=== PATIENT | female | born 1975 | race Hispanic/Latino ===

== ENCOUNTER 2017-09-13 22:57 | Emergency (ER) | payer OTHER ==
--- OUTSIDE RECORDS SUMMARY | 2017-09-13 23:00 | XMS REPORT | Clinical Summary ---
:1975 Author Organization [facility] Address [address] [place] [address] Phone Care Team Providers Name Role Phone Unavailable Primary Care Provider Unavailable Allergies Active Allergy Reactions Severity Noted Date Comments Warfarin 06/07/2016 Current Medications Prescription Sig. Disp. Refills Start Date End Date Status bifidobacterium Take by mouth Active infantis (ALIGN) 4 mg daily. Cap hyoscyamine Take 0.125 mg Active (LEVSIN/SL) 0.125 mg by mouth 2 SL tablet (two) times daily. methocarbamol Take 750 mg by Active (ROBAXIN) 750 MG mouth 4 (four) tablet times daily as needed . esomeprazole (NEXIUM) Take 40 mg by Active 40 MG capsule mouth daily. venlafaxine (EFFEXOR) Take 75 mg by Active 75 MG tablet mouth 2 (two) times daily. atorvastatin Take 1 tablet 30 tablet 0 04/14/2017 Active (LIPITOR) 40 MG (40 mg total) 8 tablet by mouth nightly. pantoprazole Take 40 mg by Active (PROTONIX) 40 MG mouth daily. tablet magnesium oxide Take 400 mg by Active (MAG-OX) 400 mg mouth 2 (two) tablet times daily. amitriptyline Take 1 tablet 30 tablet 3 05/04/2017 Active (ELAVIL) 10 MG tablet (10 mg total) 8 by mouth nightly. metFORMIN Take 1 tablet 60 tablet 11 06/11/2016 (GLUCOPHAGE) 500 MG (500 mg total) 7 tablet by mouth 2 (two) times daily with breakfast and dinner. aspirin 81 MG EC Take 1 tablet 30 tablet 11 06/10/2016 tablet (81 mg total) 7 by mouth daily. pantoprazole Take 1 tablet 0 06/10/2016 Discontinued (PROTONIX) 40 MG (40 mg total) 7 tablet by mouth daily. acetaminophen Take 2 tablets 30 tablet 0 06/10/2016 (TYLENOL) 325 MG (650 mg total) 7 tablet by mouth every 6 (six) hours as needed for Pain for up to 360 days. aluminum & Take 30 mLs by 355 mL 0 04/14/2017 magnesium mouth every 6 7 hydroxide-simethicone (six) hours as (MAALOX PLUS) needed for up 400-400-40 mg/5 mL to 10 days. suspension amitriptyline Take 1 tablet 90 tablet 3 05/04/2017 Discontinued (ELAVIL) 10 MG tablet (10 mg total) 7 by mouth nightly. Active Problems Problem Noted Date Headache, acute 05/02/2017 CVA (cerebral vascular accident) ([facility]) 06/07/2016 Encounters Date Type Specialty Care Team Description 05/02/2017 - Hospital Encounter General Internal Smitha Martinez, Cerebrovascular 05/04/2017 Medicine accident (CVA), Talat Concepcion unspecified mechanism MD Shilpi ([facility]);Acute intractable headache, unspecified headache type;Intractable vomiting with nausea, unspecified vomiting type;Morbid obesity ([facility]) 04/07/2017 Orders Only General Internal Medicine 04/06/2017 - Hospital Encounter General Internal Andrea Roberson Acute ischemic stroke 04/15/2017 Medicine Dori, ([facility]);Tissue MD plasminogen activator Jaron (t-PA) administered at MD Chiqui other facility within 24 hours prior to current admission;Acute encephalopathy;Type 2 diabetes mellitus without complication, without long-term current use of insulin ([facility]) after 09/12/2016 Social History Tobacco Use Types Packs/Day Years Used Date Former Smoker 1 1 Quit: 07/08/1993 Smokeless Tobacco: Never Used Alcohol Use Drinks/Week oz/Week Comments No Sex Assigned at Date Recorded Not on file Last Filed Vital Signs Vital Sign Reading Time Taken Blood Pressure 112/56 05/04/2017 7:39 AM CLINICAL BIOCHEMICAL GENETICIST Pulse 64 05/04/2017 7:39 AM CLINICAL BIOCHEMICAL GENETICIST Temperature 36.4 C (97.5 F) 05/04/2017 7:39 AM CLINICAL BIOCHEMICAL GENETICIST Respiratory Rate 18 05/04/2017 7:39 AM CLINICAL BIOCHEMICAL GENETICIST Oxygen Saturation 95% 05/04/2017 7:39 AM CLINICAL BIOCHEMICAL GENETICIST Inhaled Oxygen Concentration - - Weight 157.5 kg (347 lb 4.8 oz) 05/02/2017 10:00 PM CLINICAL BIOCHEMICAL GENETICIST Height 160 cm (5' 3") 05/02/2017 10:00 PM CLINICAL BIOCHEMICAL GENETICIST Body Mass Index 61.52 05/02/2017 10:00 PM CLINICAL BIOCHEMICAL GENETICIST Plan of Treatment Not on file Results EKG-SCANNED (05/10/2017 7:52 AM)Only the most recent of2 resultswithin the time period is included.RHYTHM STRIP - SCAN (05/10/2017 7:52 AM)Only the most recent of2 resultswithin the time period is included.POC-Glucose meter (2016 7:47 AM)Only the most recent of20 resultswithin the time period is included. Component Value Ref Range POC-Glucose Meter 143 (H)Comment: TESTED AT [address] 70 - 110 mg/[place] [address] Specimen Performing Laboratory Blood [address] [address] Prothrombin time/INR (05/04/2017 4:51 AM)Only the most recent of2 resultswithin the time period is included. Component Value Ref Range Protime 13.4 11.7 - 14.7 seconds INR 1.0 <=5.9 Specimen Performing Laboratory Blood - Arm, [address] [address] Narrative RECOMMENDED COUMADIN/WARFARIN INR THERAPY RANGES STANDARD DOSE: 2.0 - 3.0 Includes: PROPHYLAXIS for venous thrombosis, systemic embolization; TREATMENT for venous thrombosis and/or pulmonary embolus. HIGH RISK: Target INR is 2.5-3.5 for patients with mechanical heart valves. Phosphorus (05/04/2017 4:51 AM)Only the most recent of2 resultswithin the time period is included. Component Value Ref Range Phosphorus 4.4 2.3 - 4.7 mg/dL Specimen Performing Laboratory Blood - Arm, [address] [address] Magnesium (05/04/2017 4:51 AM)Only the most recent of2 resultswithin the time period is included. Component Value Ref Range Magnesium 2.3 1.6 - 2.6 mg/dL Specimen Performing Laboratory Blood - Arm, [address] [address] Hepatic function panel (05/04/2017 4:51 AM)Only the most recent of3 resultswithin the time period is included. Component Value Ref Range Protein, Total 6.8 6.0 - 8.3 gm/dL Albumin 3.6 3.5 - 5.0 g/dL Total Bilirubin 0.4 0.2 - 1.2 mg/dL Bilirubin, Direct 0.2 0.1 - 0.5 mg/dL Alkaline Phosphatase 59 40 - 150 U/L AST 24 5 - 34 U/L ALT 17 6 - 55 U/L Specimen Performing Laboratory Blood - Arm, [address] [address] Basic metabolic panel (05/04/2017 4:51 AM)Only the most recent of8 resultswithin the time period is included. Component Value Ref Range Sodium 142 136 - 145 meq/L Potassium 3.9 3.5 - 5.1 meq/L Chloride 108 (H) 98 - 107 meq/L CO2 26 22 - 29 meq/L BUN 16 7 - 21 mg/dL Creatinine 0.69 0.57 - 1.25 mg/dL Glucose 86 70 - 105 mg/dL Calcium 8.6 8.4 - 10.2 mg/dL EGFR 94Comment: ESTIMATED GFR IS NOT ACCURATE mL/min/1.73 sq m CREATININE CLEARANCE IN PREDICTING GLOMERULAR FILTRATION RATE. ESTIMATED GFR IS NOT APPLICABLE FOR DIALYSIS PATIENTS. Specimen Performing Laboratory Blood - Arm, [address] [address] CBC with platelet count + automated diff (05/03/2017 5:17 AM)Only the most recent of6 resultswithin the time period is included. Component Value Ref Range WBC 8.9 3.5 - 10.5 K/L RBC 4.55 3.93 - 5.22 M/L Hemoglobin 13.0 11.2 - 15.7 GM/DL Hematocrit 42.0 34.1 - 44.9 % MCV 92.3 79.4 - 94.8 fL MCH 28.6 25.6 - 32.2 pg MCHC 31.0 (L) 32.2 - 35.5 GM/DL RDW 13.9 11.7 - 14.4 % Platelets 202 150 - 450 K/CU MM MPV 12.6 (H) 9.4 - 12.3 fL nRBC 0 0 - 0 /100 WBC % Neutros 70 % % Lymphs 23 % % Monos 4 % % Eos 3 % % Baso 0 % # Neutros 6.19 (H) 1.56 - 6.13 K/L # Lymphs 2.03 1.18 - 3.74 K/L # Monos 0.37 (H) 0.24 - 0.36 K/L # Eos 0.24 0.04 - 0.36 K/L # Baso 0.02 0.01 - 0.08 K/L Immature Granulocytes-Relative 0 0 - 1 % Specimen Performing Laboratory Blood - [place], [address] [address] Troponin I (05/03/2017 5:17 AM)Only the most recent of4 resultswithin the time period is included. Component Value Ref Range Troponin I <0.01 0.00 - 0.03 ng/mL Specimen Performing Laboratory Blood - Arm, [address] [address] Narrative Troponin I (TnI) levels must be interpreted in the context of the presenting symptoms and the clinical findings. Elevated TnI levels indicate myocardial damage, but are not specific for ischemic heart disease. Elevated TnI levels are seen in patients with other cardiac conditions (including myocarditis and congestive heart failure), and slight TnI elevations occur in patients with other conditions, including sepsis, renal failure, acidosis, acute neurological disease, and persistent tachyarrhythmia. CBC with platelet count + automated diff (05/03/2017 5:17 AM)Only the most recent of6 resultswithin the time period is included. Specimen Performing Laboratory Blood Narrative The following orders were created for panel order CBC with platelet count + automated diff. Procedure Abnormality Status --------- ------ CBC with platelet count ...[[id number]]AbnormalFinal result Please view results for these tests on the individual orders. Creatine Kinase (CK), Total and MB (05/03/2017 1:00 AM)Only the most recent of3 resultswithin the time period is included. Component Value Ref Range Total CK 55 29 - 200 U/L CK-MB 1.1 0.0 - 6.6 ng/mL MB Relative Index 2.0 % Specimen Performing Laboratory Blood [address] [address] Narrative CK-MB Reference Range: <6.7Normal 6.7-10.0Borderline >10.0 Abnormal CBC (Hemogram only) (04/12/2017 4:19 AM) Component Value Ref Range WBC 7.7 3.5 - 10.5 K/L RBC 4.17 3.93 - 5.22 M/L Hemoglobin 12.0 11.2 - 15.7 GM/DL Hematocrit 38.0 34.1 - 44.9 % MCV 91.1 79.4 - 94.8 fL MCH 28.8 25.6 - 32.2 pg MCHC 31.6 (L) 32.2 - 35.5 GM/DL RDW 14.0 11.7 - 14.4 % Platelets 219 150 - 450 K/CU MM MPV 11.6 9.4 - 12.3 fL nRBC 0 0 - 0 /100 WBC Specimen Performing Laboratory Blood [address] [address] Clostridium difficile Toxin PCR (04/11/2017 2:20 PM) Component Value Ref Range C.Diff Toxin, PCR Not Detected Not Detected Specimen Performing Laboratory Stool [address] [address] Narrative This qualitative real-time polymerase chain reaction assay detects the tcdB gene, encoded on the C.difficile pathogenicity locus (PaLoc).The product of tcdB , toxin B, is a cytotoxin essential for causing C.difficile-associated disease (CDAD) and is found in virtually all toxigenic C.difficile. This assay is performed for patients suspected of having either community- acquired or nosocomial CDAD.Accordingly, only symptomatic patients should be tested and formed stools will be rejected unless ileus is present (i.e., specified when ordering).Patients may be colonized with toxigenic C.difficile strains not causing active disease; therefore, clinical correlation is needed when deciding how to manage patients with a positive test result. The assay has not been validated as a test of cure as amplifiable nucleic acid may persist after effective treatment; therefore, follow-up testing of a positive result is not recommended. ECHOCARDIOGRAM REPORT - SCAN (04/11/2017 9:25 AM)2D Echo W/Doppler(CW/PW/Color ) (04/10/2017 11:14 AM) Component Value Ref Range Ejection Fraction Specimen Performing Laboratory 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 Clinical History stroke asthma DM GERD Sleep apnea Morbid Obesity Height: 63 inches Weight: 170.55 kg (376 lbs) BSA: 2.53 m^2 BMI: 66.6 kg/m^2 HR: 80 bpm BP: 113/76 mmHg Summary LV endocardium is partially visualized with IV contrast. The left ventricle is chamber size (by PSLAX dimension) is small (female - LVIDd < 3.8cm) . Moderate concentric LV hypertrophy. All of the LV segments contract normally . The following segment(s) are not well visualized: inferolateral. Estimated LVEF by qualitative assessment is normal (55-60%) . LV diastolic function is indeterminate. RV is not well visualized. RV chamber size appears normal . Estimated peak systolic PA pressure is 25-30 mmHg + RA pressure. No significant pericardial effusion is visualized. Signature Findings Technical Quality: Technically difficult exam. Left Ventricle The left ventricle is chamber size (by PSLAX dimension) is small (female - LVIDd < 3.8cm) . Moderate concentric LV hypertrophy. All of the LV segments contract normally . The following segment(s) are not well visualized: inferolateral. Estimated LVEF by qualitative assessment is normal (55-60%) . LV endocardium is partially visualized with IV contrast. LV diastolic function is indeterminate. Left AtriumLA size is normal . Right VentricleRV is not well visualized. RV chamber size appears normal . Right Atrium RA size is mildly dilated. Aortic Valve Normal AoV structure. AoV is partially visualized. Mitral Valve Normal MV structure. MV is partially visualized. Tricuspid ValveTV is not well visualized. Estimated peak systolic PA pressure is 25-30 mmHg + RA pressure. Pulmonic Valve PV is not well visualized; function appears normal by Doppler visualized. AortaAortic root size (SInus of Valsalva diameter) is indeterminate (not well seen) . PericardiumNo significant pericardial effusion is visualized. IVC/SVC/PA/PV/PleuralThe inferior vena cava is not well visualized. The estimated RA pressure by IVC dynamics 5-10mmHg . Chambers/Structures Left Atrium LA Dimension: 4.48 cm Left Ventricle LVIDd: 3.38 cmLVEDV 2D :46.91 ml LVIDs: 1.93 cmLVESV 2D :11.67 ml LV Septum Diastolic: 1.4 cm LV Septum Systolic: 2.31 cm LV PW Diastolic: 1.49 cmLV FS: 42.9 % LV PW Systolic: 2.13 cm LV ESV (Cubed): 7.19 cc LVOT Diameter: 2.09 cm LV ESV (Teich):11.62 ml LV SV (Teich):35.14 ml LV SI (Teich):13.89 ml/m^2 LVEF 2D Teich: 75.1 % Shunts QS:60 ml Doppler/Quantitative Measurements Aortic Valve Peak Velocity: 1.97 m/sMean Velocity: 1.34 m/s Peak Gradient: 15.57 mmHgMean Gradient: 8.35 mmHg AV Area (continuity): 1.64 cm^2 AV VTI: 36.53 cm AV DVI: 0.48 LVOT Peak Velocity: 0.99 m/s Peak Gradient: 3.91 mmHg Mean Velocity: 0.6 m/sMean Gradient: 1.75 mmHg LVOT Diameter: 2.09 cmLVOT VTI: 17.49 cm LVOT Area: 3.43 cm^2LVOT SV:59.97 ml LVOT CO: 4.8 l/minLVOT CI: 1.9 l/min/m^2 Procedure Note Interface, External Ris In - 04/11/2017 8:51 AM CDT Transthoracic Echocardiography Report (TTE) Demographics Patient Name CALDERÓN, Date of Study 04/10/2017 GIOVANNY Gender Female Visit Number [id number] Race Unknown Room Number 7518 Number Date of 1975 Referring Physician 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 Clinical History stroke asthma DM GERD Sleep apnea Morbid Obesity Height: 63 inches Weight: 170.55 kg (376 lbs) BSA: 2.53 m^2 BMI: 66.6 kg/m^2 HR: 80 bpm BP: 113/76 mmHg Summary LV endocardium is partially visualized with IV contrast. The left ventricle is chamber size (by PSLAX dimension) is small (female - LVIDd < 3.8cm) . Moderate concentric LV hypertrophy. All of the LV segments contract normally . The following segment(s) are not well visualized: inferolateral. Estimated LVEF by qualitative assessment is normal (55-60%) . LV diastolic function is indeterminate. RV is not well visualized. RV chamber size appears normal . Estimated peak systolic PA pressure is 25-30 mmHg + RA pressure. No significant pericardial effusion is visualized. Signature Findings Technical Quality: Technically difficult exam. Left Ventricle The left ventricle is chamber size (by PSLAX dimension) is small (female - LVIDd < 3.8cm) . Moderate concentric LV hypertrophy. All of the LV segments contract normally . The following segment(s) are not well visualized: inferolateral. Estimated LVEF by qualitative assessment is normal (55-60%) . LV endocardium is partially visualized with IV contrast. LV diastolic function is indeterminate. Left Atrium LA size is normal . Right Ventricle RV is not well visualized. RV chamber size appears normal . Right Atrium RA size is mildly dilated. Aortic Valve Normal AoV structure. AoV is partially visualized. Mitral Valve Normal MV structure. MV is partially visualized. Tricuspid Valve TV is not well visualized. Estimated peak systolic PA pressure is 25-30 mmHg + RA pressure. Pulmonic Valve PV is not well visualized; function appears normal by Doppler visualized. Aorta Aortic root size (SInus of Valsalva diameter) is indeterminate (not well seen) . Pericardium No significant pericardial effusion is visualized. IVC/SVC/PA/PV/Pleural The inferior vena cava is not well visualized. The estimated RA pressure by IVC dynamics 5-10mmHg . Chambers/Structures Left Atrium LA Dimension: 4.48 cm Left Ventricle LVIDd: 3.38 cm LVEDV 2D:46.91 ml LVIDs: 1.93 cm LVESV 2D:11.67 ml LV Septum Diastolic: 1.4 cm LV Septum Systolic: 2.31 cm LV PW Diastolic: 1.49 cm LV FS: 42.9 % LV PW Systolic: 2.13 cm LV ESV (Cubed):7.19 cc LVOT Diameter: 2.09 cm LV ESV (Teich):11.62 ml LV SV (Teich):35.14 ml LV SI (Teich):13.89 ml/m^2 LVEF 2D Teich: 75.1 % Shunts QS:60 ml Doppler/Quantitative Measurements Aortic Valve Peak Velocity: 1.97 m/s Mean Velocity: 1.34 m/s Peak Gradient: 15.57 mmHg Mean Gradient: 8.35 mmHg AV Area (continuity): 1.64 cm^2 AV VTI: 36.53 cm AV DVI: 0.48 LVOT Peak Velocity: 0.99 m/s Peak Gradient: 3.91 mmHg Mean Velocity: 0.6 m/s Mean Gradient: 1.75 mmHg LVOT Diameter: 2.09 cm LVOT VTI: 17.49 cm LVOT Area: 3.43 cm^2 LVOT SV:59.97 ml LVOT CO: 4.8 l/min LVOT CI: 1.9 l/min/m^2 Hemoglobin A1c (04/10/2017 5:59 AM) Component Value Ref Range Hemoglobin A1C 6.2 (H) 4.3 - 6.1 % Specimen Performing Laboratory [place] [address] CT brain without IV contrast (04/09/2017 6:45 AM)Only the most recent of2 resultswithin the time period is included. Specimen Performing Laboratory [facility] Narrative FINAL REPORT Clinical history : Decreased alertness Comparison study: CT scan of the brain 04/08/2017 Technique: Contiguous axial images were obtained of the brain without intravenous contrast. This exam was performed according to our departmental dose optimization program, which includes automated exposure control, adjustment of the mA and/or kV according to the patient's size and/or use of the iterative reconstruction technique. FINDINGS: No hydrocephalus, mass, midline shift, cisternal effacement, intraparenchymal hemorrhage, or extra axial fluid collection. No acute infarction is identified. The visualized paranasal sinuses and tympanomastoid cavities are well pneumatized. Normal orbital contents, skull base, and calvarium. Impression: No acute abnormalities. Signed: Skip Gardner MD Report Verified Date/Time:04/09/2017 06:55:25 Reading Location: [address] Ortho Consult Reading Room Procedure Note Interface, External Ris In - 04/09/2017 8:04 AM CDT FINAL REPORT Clinical history : Decreased alertness Comparison study: CT scan of the brain 04/08/2017 Technique: Contiguous axial images were obtained of the brain without intravenous contrast. This exam was performed according to our departmental dose optimization program, which includes automated exposure control, adjustment of the mA and/or kV according to the patient's size and/or use of the iterative reconstruction technique. FINDINGS: No hydrocephalus, mass, midline shift, cisternal effacement, intraparenchymal hemorrhage, or extra axial fluid collection. No acute infarction is identified. The visualized paranasal sinuses and tympanomastoid cavities are well pneumatized. Normal orbital contents, skull base, and calvarium. Impression: No acute abnormalities. Signed: Skip Gardner MD Report Verified Date/Time: 04/09/2017 06:55:25 Reading Location: [address] Ortho Consult Reading Room PHERAL VASCULAR REPORT - SCAN (04/07/2017 5:07 PM)Carotid doppler bilateral (04/07/2017 12:14 PM) Component Value Ref Range Ejection Fraction Specimen Performing Laboratory [facility] ECHO HEARTLAB MKCK[facility]ON CPACS Impressions Right Impression 1. The internal carotid artery is within normal limits. 2. The external carotid artery is within normal limits. 3. The common carotid artery is within normal limits. 4. The vertebral artery flow is antegrade and normal. 5. The subclavian artery is within normal limits where visualized. Left Impression 1. The internal carotid artery is within normal limits. 2. The external carotid artery is within normal limits. 3. The common carotid artery is within normal limits. 4. The vertebral artery flow is antegrade and normal. 5. The subclavian artery is within normal limits where visualized. Conclusions Summary Carotid duplex scanning and color flow imaging were performed bilaterally. The arteries were well visualized and no areas of stenosis were found bilaterally. Doppler flow velocities were within normal range bilaterally. The vertebral artery flow was antegrade and normal bilaterally. The subclavian arteries were patent with normal flow bilaterally where visualized. Signature Velocities are measured in cm/s ; Diameters are measured in cm Carotid Right Measurements + +----+----+-----+ + + + !Location !PSV !EDV !Angle!%Stenosis 2D!%Stenosis Doppler! Tortuosity ! + +----+----+-----+ + + + !Prox CCA !101 !26.4!60 !! ! ! + +----+----+-----+ + + + !Dist CCA !104 !36.4!60 !! ! ! + +----+----+-----+ + + + !Prox ICA !110 !37.7!60 !!Normal ! ! + +----+----+-----+ + + + !Dist ICA !99.8!46.4!60 !! ! ! + +----+----+-----+ + + + !Prox ECA !151 !16.5!60 !! ! ! + +----+----+-----+ + + + !Vertebral!58!24!60 !! ! ! + +----+----+-----+ + + + !Prox Subclavian!168 !19.6!60 !! ! ! + +----+----+-----+ + + + - There is antegrade vertebral flow noted on the right side. - Additional Measurements:ICAPSV/CCAPSV 1.06.ICAEDV/CCAEDV 1.76. Carotid Left Measurements + +----+----+-----+ + + + !Location !PSV !EDV !Angle!%Stenosis 2D!%Stenosis Doppler! Tortuosity ! + +----+----+-----+ + + + !Prox CCA !144 !29.5!60 !! ! ! + +----+----+-----+ + + + !Dist CCA !127 !29.9!60 !! ! ! + +----+----+-----+ + + + !Prox ICA !118 !35.8!60 !!Normal ! ! + +----+----+-----+ + + + !Dist ICA !109 !48.7!60 !! ! ! + +----+----+-----+ + + + !Prox ECA !139 !12.6!60 !! ! ! + +----+----+-----+ + + + !Vertebral!67.4!23.5!60 !! ! ! + +----+----+-----+ + + + !Prox Subclavian!170 !18.7!60 !! ! ! + +----+----+-----+ + + + - There is antegrade vertebral flow noted on the left side. - Additional Measurements:ICAPSV/CCAPSV 0.93.ICAEDV/CCAEDV 1.65. Narrative [facility] - Carotid Duplex Study Demographics Patient Name Ty CALDERÓN of Study 04/07/2017 [id number] Age 41 Visit Number [id number] Gender Female Accession Number [id number] Date of 1975 [facility] Room Number 7518 Physician TimographAura Jeff MD, RVSPsician RPVI Procedure Type of Study: Cerebral: Carotid, CAROTID DOPPLER, BILATERAL. Indications for Study:Stroke workup . Patient Status:Routine. Study Location:Portable. Technical Quality:Adequate visualization. Risk Factors History of Disease + + + + !Diagnosis !Date!Comments ! + + + + !History/Risk!04/07/2017!Former smoker, CVA with left sided weakness & amp; ! !Factors:!!right facial droop, DM, Morbid obesity! 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 Indications for Study:Stroke workup . Patient Status:Routine. Study Location:Portable. Technical Quality:Adequate visualization. Risk Factors History of Disease + + + + !Diagnosis !Date !Comments ! + + + + !History/Risk !04/07/2017!Former smoker, CVA with left sided weakness & ! !Factors: ! !right facial droop, DM, Morbid obesity ! + + + + Impressions Right Impression 1. The internal carotid artery is within normal limits. 2. The external carotid artery is within normal limits. 3. The common carotid artery is within normal limits. 4. The vertebral artery flow is antegrade and normal. 5. The subclavian artery is within normal limits where visualized. Left Impression 1. The internal carotid artery is within normal limits. 2. The external carotid artery is within normal limits. 3. The common carotid artery is within normal limits. 4. The vertebral artery flow is antegrade and normal. 5. The subclavian artery is within normal limits where visualized. Conclusions Summary Carotid duplex scanning and color flow imaging were performed bilaterally. The arteries were well visualized and no areas of stenosis were found bilaterally. Doppler flow velocities were within normal range bilaterally. The vertebral artery flow was antegrade and normal bilaterally. The subclavian arteries were patent with normal flow bilaterally where visualized. Signature Velocities are measured in cm/s ; Diameters are measured in cm Carotid Right Measurements + +----+----+-----+ + + + !Location !PSV !EDV !Angle!%Stenosis 2D!%Stenosis Doppler!Tortuosity ! + +----+----+-----+ + + + !Prox CCA !101 !26.4!60 ! ! ! ! + +----+----+-----+ + + + !Dist CCA !104 !36.4!60 ! ! ! ! + +----+----+-----+ + + + !Prox ICA !110 !37.7!60 ! !Normal ! ! + +----+----+-----+ + + + !Dist ICA !99.8!46.4!60 ! ! ! ! + +----+----+-----+ + + + !Prox ECA !151 !16.5!60 ! ! ! ! + +----+----+-----+ + + + !Vertebral !58 !24 !60 ! ! ! ! + +----+----+-----+ + + + !Prox Subclavian!168 !19.6!60 ! ! ! ! + +----+----+-----+ + + + - There is antegrade vertebral flow noted on the right side. - Additional Measurements:ICAPSV/CCAPSV 1.06.ICAEDV/CCAEDV 1.76. Carotid Left Measurements + +----+----+-----+ + + + !Location !PSV !EDV !Angle!%Stenosis 2D!%Stenosis Doppler!Tortuosity ! + +----+----+-----+ + + + !Prox CCA !144 !29.5!60 ! ! ! ! + +----+----+-----+ + + + !Dist CCA !127 !29.9!60 ! ! ! ! + +----+----+-----+ + + + !Prox ICA !118 !35.8!60 ! !Normal ! ! + +----+----+-----+ + + + !Dist ICA !109 !48.7!60 ! ! ! ! + +----+----+-----+ + + + !Prox ECA !139 !12.6!60 ! ! ! ! + +----+----+-----+ + + + !Vertebral !67.4!23.5!60 ! ! ! ! + +----+----+-----+ + + + !Prox Subclavian!170 !18.7!60 ! ! ! ! + +----+----+-----+ + + + - There is antegrade vertebral flow noted on the left side. - Additional Measurements:ICAPSV/CCAPSV 0.93.ICAEDV/CCAEDV 1.65. EEG AWAKE AND DROWSY (04/07/2017 10:18 AM) Specimen Performing Laboratory [facility] Narrative DATE OF EE04-07-2017 DATE OF REPORT: 04-07-2017 ACC: [id number] EE-180 Start time: 09:54 Stop time: 10:18 ICD-10:G 93.40 CPT Code: 13915 HISTORY: 41 y.o. female with history of morbid obesity, DM2 who presented today to OSH with R sided facial droop and LUE weakness . Patient was evaluated at OSH where patient was started with tPA after normal CT. Now with acute encephalopathy MEDICATIONS THAT COULD AFFECT EEG: TECHNICAL SUMMARY: This is a digital EEG recorded with 32 input channels on a Paybook system and then reviewed with bipolar and referential montages using the modified combinatorial system nomenclature. DESCRIPTION OF RECORD: During the brief maximally alert state a 9-10 Hz posterior dominant rhythm was seen that was symmetric, reactive to eye opening but not sustained .More anteriorly, low voltage frontocentral beta predominated.Drowsiness was characterized by alpha attenuation and increased frontocentral theta. No sleep structures seen. HV: Hyperventilation was not performed. PHOTIC STIMULATION: Photic Stimulation was not done IMPRESSION: Normal awake and drowsy EEG. CLINICAL CORRELATION: Because the patient is mostly drowsy or sleep (and only briefly awake), this recording condition has low sensitivity for differentiating mild encephalopathy from normal maynor-sleep somnolence. An EEG without epileptiform discharges does not exclude the possibility of epilepsy.If the clinical suspicion of epilepsy remains, consider additional EEG recordings. Javi Mae MD Neurophysiology Fellow PGY5 Attending Note: I personally reviewed this EEG record in its entirety and I agree with the details of this report. Kitty Montejo MD, PhD Epilepsy Attending Procedure Note Interface, External Ris In - 04/07/2017 11:38 AM CDT DATE OF EE04-07-2017 DATE OF REPORT: 04-07-2017 ACC: [id number] EE Start time: 09:54 Stop time: 10:18 ICD-10: G 93.40 CPT Code: 73982 HISTORY: 41 y.o. female with history of morbid obesity, DM2 who presented today to OSH with R sided facial droop and LUE weakness . Patient was evaluated at OSH where patient was started with tPA after normal CT. Now with acute encephalopathy MEDICATIONS THAT COULD AFFECT EEG: TECHNICAL SUMMARY: This is a digital EEG recorded with 32 input channels on a Paybook system and then reviewed with bipolar and referential montages using the modified combinatorial system nomenclature. DESCRIPTION OF RECORD: During the brief maximally alert state a 9-10 Hz posterior dominant rhythm was seen that was symmetric, reactive to eye opening but not sustained . More anteriorly, low voltage frontocentral beta predominated. Drowsiness was characterized by alpha attenuation and increased frontocentral theta. No sleep structures seen. HV: Hyperventilation was not performed. PHOTIC STIMULATION: Photic Stimulation was not done IMPRESSION: Normal awake and drowsy EEG. CLINICAL CORRELATION: Because the patient is mostly drowsy or sleep (and only briefly awake), this recording condition has low sensitivity for differentiating mild encephalopathy from normal maynor-sleep somnolence. An EEG without epileptiform discharges does not exclude the possibility of epilepsy. If the clinical suspicion of epilepsy remains, consider additional EEG recordings. Javi Mae MD Neurophysiology Fellow PGY5 Attending Note: I personally reviewed this EEG record in its entirety and I agree with the details of this report. Kitty Montejo MD, PhD Epilepsy Attending Ammonia (04/07/2017 8:45 AM) Component Value Ref Range Ammonia 34 18 - 72 mol/L Specimen Performing Laboratory [facility] [address] [address] ECG 12 lead (04/07/2017 7:29 AM) Specimen Performing Laboratory [facility] Narrative Ventricular Rate 81 BPM Atrial Rate 81 BPM P-R Interval 120 ms QRS Duration 90 ms Q-T Interval 392 ms QTC Calculation(Bazett) 455 ms P [place] 19 degrees R [place] 42 degrees T [place] 32 degrees Normal sinus rhythm Normal ECG When compared with ECG of 09-JUN-2016 14:09, No significant change was found Confirmed by MD OLIVERA JORGE ([id number]) on 04/07/2017 2:44:04 PM Procedure Note Interface, External Ris In - 04/07/2017 2:44 PM CDT Ventricular Rate 81 BPM Atrial Rate 81 BPM P-R Interval 120 ms QRS Duration 90 ms Q-T Interval 392 ms QTC Calculation(Bazett) 455 ms P [place] 19 degrees R [place] 42 degrees T [place] 32 degrees Normal sinus rhythm Normal ECG When compared with ECG of 09-JUN-2016 14:09, No significant change was found Confirmed by MD OLIVERA JORGE ([id number]) on 04/07/2017 2:44:04 PM Vitamin B12 and Folate (04/07/2017 2:37 AM) Component Value Ref Range Vitamin B12 417 213 - 816 pg/mL Folate 13.6 >=7.0 ng/mL Specimen Performing Laboratory Blood [address] [address] TSH/Free T4 If Indicated (04/07/2017 2:37 AM) Component Value Ref Range TSH 1.12 0.35 - 4.94 uIU/mL Specimen Performing Laboratory Blood [address] [address] Fasting lipid panel (04/07/2017 2:37 AM) Component Value Ref Range Triglycerides 99Comment: Specimen moderately hemolyzed mg/dL Cholesterol 139Comment: Specimen moderately hemolyzed mg/dL HDL 43 mg/dL LDL Calculated 76 mg/dL Specimen Performing Laboratory Blood [facility] [address] [address] Narrative Triglyceride Reference Range: Low Risk <150 [id number] High Risk 200-499 Very High Risk>=500 Cholesterol Reference Range: Low Risk <200 [id number] High Risk>240 HDL Cholesterol Reference Range: Low Risk >=60 High Risk <40 LDL Cholesterol Reference Range: Optimal<100 Near [id number] [id number] Apnd241-485 Very High >=190 Fasting CTA brain (04/07/2017 12:32 AM) Specimen Performing Laboratory [facility] Narrative Addendum Begins REPORT STATUS:A Three-dimensional post intravenous contrast images of the cerebral vasculature were created on a free standing workstation for better visualization of cerebral vascular anatomy and pathology. Signed: Skip Gardner MD Report Verified Date/Time:04/12/2017 06:59:20 Reading Location: [facility] C0X Ortho Consult Reading Room Addendum Ends FINAL REPORT Noncontrast CT scan of the brain: Clinical history : Left-sided weakness status post TPA at an outside hospital. Comparison study: MRI of the brain 06/08/2016 Technique: Contiguous axial images were obtained of the brain without intravenous contrast. This exam was performed according to our departmental dose optimization program, which includes automated exposure control, adjustment of the mA and/or kV according to the patient's size and/or use of the iterative reconstruction technique. FINDINGS: Nonspecific periventricular and subcortical white matter changes suggestive of chronic microangiopathy. No hydrocephalus, mass, midline shift, cisternal effacement, intraparenchymal hemorrhage, or extra axial fluid collection. No acute infarction is identified. The visualizedparanasal sinuses and tympanomastoid cavities are well pneumatized. Normal orbital contents, skull base, and calvarium. Impression: 1. No acute abnormalities. 2. Results called to Dr. Hooks on 04/07/2017 at 12:[address] angiogram of the brain: CLINICAL HISTORY: Left-sided weakness status post TPA at an outside hospital. Comparison exam: None TECHNIQUE: CT scan of the brain arteries following the intravenous administration of contrast according to the CTA protocol. CT angiogram of the neck arteries could not be obtained secondary to the patient's body habitus. Dose modulation, iterative reconstruction, and/or weight based adjustment of the mA/kV was utilized to reduce the radiation dose to as low as reasonably achievable. FINDINGS: Limited diagnostic quality CT angiogram of the brain secondary to suboptimal IV. The visualized neck and intracranial internal carotid arteries, middle cerebral arteries, and anterior cerebral arteries demonstrate no stenosis, occlusion, aneurysm, or arterial venous malformation. Bilaterally symmetric intradural vertebral arteries. Normal basilar artery. Normal right posterior cerebral artery which arises off of theright internal carotid artery. The left posterior cerebral artery is somewhat diminutive and arises from the basilar artery. Patent major cerebral veins and dural venous sinuses. Patent jugular veins bilaterally. IMPRESSION: 1. Suboptimal CT angiogram of the brain secondary to a poor IV. No acute abnormalities are detected. CT angiogram of the neck arteries could not be obtained secondary to the patient's body habitus. 2. Results called to Dr. Hooks on 04/07/2017 at 12:50 AM. Signed: Skip Gardner MD Report Verified Date/Time:04/07/2017 01:12:44 Reading Location: [address] Ortho Consult Reading Room Procedure Note Interface, External Ris In - 04/12/2017 7:01 AM CDT Addendum Begins REPORT STATUS:A Three-dimensional post intravenous contrast images of the cerebral vasculature were created on a free standing workstation for better visualization of cerebral vascular anatomy and pathology. Signed: Skip Gardner MD Report Verified Date/Time: 04/12/2017 06:59:20 Reading Location: [address] Ortho Consult Reading Room Addendum Ends FINAL REPORT Noncontrast CT scan of the brain: Clinical history : Left-sided weakness status post TPA at an outside hospital. Comparison study: MRI of the brain 06/08/2016 Technique: Contiguous axial images were obtained of the brain without intravenous contrast. This exam was performed according to our departmental dose optimization program, which includes automated exposure control, adjustment of the mA and/or kV according to the patient's size and/or use of the iterative reconstruction technique. FINDINGS: Nonspecific periventricular and subcortical white matter changes suggestive of chronic microangiopathy. No hydrocephalus, mass, midline shift, cisternal effacement, intraparenchymal hemorrhage, or extra axial fluid collection. No acute infarction is identified. The visualized paranasal sinuses and tympanomastoid cavities are well pneumatized. Normal orbital contents, skull base, and calvarium. Impression: 1. No acute abnormalities. 2. Results called to Dr. Hooks on 04/07/2017 at 12:[address] angiogram of the brain: CLINICAL HISTORY: Left-sided weakness status post TPA at an outside hospital. Comparison exam: None TECHNIQUE: CT scan of the brain arteries following the intravenous administration of contrast according to the CTA protocol. CT angiogram of the neck arteries could not be obtained secondary to the patient's body habitus. Dose modulation, iterative reconstruction, and/or weight based adjustment of the mA/kV was utilized to reduce the radiation dose to as low as reasonably achievable. FINDINGS: Limited diagnostic quality CT angiogram of the brain secondary to suboptimal IV. The visualized neck and intracranial internal carotid arteries, middle cerebral arteries, and anterior cerebral arteries demonstrate no stenosis, occlusion, aneurysm, or arterial venous malformation. Bilaterally symmetric intradural vertebral arteries. Normal basilar artery. Normal right posterior cerebral artery which arises off of the right internal carotid artery. The left posterior cerebral artery is somewhat diminutive and arises from the basilar artery. Patent major cerebral veins and dural venous sinuses. Patent jugular veins bilaterally. IMPRESSION: 1. Suboptimal CT angiogram of the brain secondary to a poor IV. No acute abnormalities are detected. CT angiogram of the neck arteries could not be obtained secondary to the patient's body habitus. 2. Results called to Dr. Hooks on 04/07/2017 at 12:50 AM. Signed: Skip Gardner MD Report Verified Date/Time: 04/07/2017 01:12:44 Reading Location: [facility] B1 C013X [facility] Consult Reading Room after 09/12/2016
--- OUTSIDE RECORDS SUMMARY | 2017-09-13 23:01 | XMS REPORT ---
:1975 [facility] Address [address] [place] [address] Care Team Providers Name Role Phone MICKEY RESTREPO Unavailable Unavailable YIMI CHEUNG Unavailable Unavailable Problems This patient has no known problems. Allergies, Adverse Reactions, Alerts This patient has no known allergies or adverse reactions. Medications This patient has no known medications. Results Test Description Test Time Test Comments Text Results Atomic Results Result Comments POCT-GLUCOSE METER 2017-05-04 11:34:00 Test Item Value Reference Range Comments POC-GLUCOSE METER (BEAKER) (test 84 mg/dL 70-110 TESTED AT [facility] [address] [facility] gqmj=9310) [facility] [address] [id number] 08:58:00 Test Item Value Reference Range Comments PHOSPHORUS (BEAKER) (test eqmk=444) 4.4 mg/dL 2.3-4.7 [id number] 08:58:00 Test Item Value Reference Range Comments MAGNESIUM (BEAKER) (test fndm=622) 2.3 mg/dL 1.6-2.6 BASIC METABOLIC [id number] 08:58:00 Test Item Value Reference Range Comments SODIUM (BEAKER) (test 142 meq/L 136-145 klqx=379) POTASSIUM (BEAKER) (test 3.9 meq/L 3.5-5.1 kfib=591) CHLORIDE (BEAKER) (test 108 meq/L 98-107 gvid=173) CO2 (BEAKER) (test 26 meq/L 22-29 uvhw=142) BLOOD UREA NITROGEN 16 mg/dL 7-21 (BEAKER) (test qgbx=473) CREATININE (BEAKER) (test 0.69 mg/dL 0.57-1.25 ocfp=936) GLUCOSE RANDOM (BEAKER) 86 mg/dL 70-105 (test cgdv=201) CALCIUM (BEAKER) (test 8.6 mg/dL 8.4-10.2 szss=094) EGFR (BEAKER) (test 94 mL/min/1.73 sq m ESTIMATED GFR IS NOT vvto=3822) ACCURATE CREATININE CLEARANCE IN PREDICTING GLOMERULAR FILTRATION RATE. ESTIMATED GFR IS NOT APPLICABLE FOR DIALYSIS PATIENTS. HEPATIC FUNCTION [id number] 08:58:00 Test Item Value Reference Range Comments TOTAL PROTEIN (BEAKER) (test pyxs=172) 6.8 gm/dL 6.0-8.3 ALBUMIN (BEAKER) (test oexu=8967) 3.6 g/dL 3.5-5.0 BILIRUBIN TOTAL (BEAKER) (test khqe=985) 0.4 mg/dL 0.2-1.2 BILIRUBIN DIRECT (BEAKER) (test onzc=796) 0.2 mg/dL 0.1-0.5 ALKALINE PHOSPHATASE (BEAKER) (test jwbb=799) 59 U/L 40-150 AST (SGOT) (BEAKER) (test wvzi=451) 24 U/L 5-34 ALT (SGPT) (BEAKER) (test jwrk=455) 17 U/L 6-55 POCT-GLUCOSE [id number] 08:20:00 Test Item Value Reference Range Comments POC-GLUCOSE METER (BEAKER) 143 mg/dL 70-110 TESTED AT [address] (test ojtc=8599) [facility] [address] PROTHROMBIN [id number] 05:55:00 Test Item Value Reference Range Comments PROTIME (BEAKER) (test byoi=019) 13.4 seconds 11.7-14.7 INR (BEAKER) (test myqy=459) 1.0 <=5.9 RECOMMENDED COUMADIN/WARFARIN INR THERAPY RANGESSTANDARD DOSE: 2.0 - 3.0 Includes: PROPHYLAXIS forvenous thrombosis, systemic embolization; TREATMENT for venous thrombosis and/or pulmonary embolus.HIGH RISK: Target INR is 2.5-3.5 for patients with mechanical heart valves.POCT-GLUCOSE [id number] 20:32:00 Test Item Value Reference Range Comments POC-GLUCOSE METER (BEAKER) 90 mg/dL 70-110 TESTED AT [facility] [address] (test rvhw=7723) [facility] [address] POCT-GLUCOSE [id number] 16:47:00 Test Item Value Reference Range Comments POC-GLUCOSE METER (BEAKER) 79 mg/dL 70-110 TESTED AT [address] (test kpdf=5958) [place] [id number] POCT-GLUCOSE [id number] 07:47:00 Test Item Value Reference Range Comments POC-GLUCOSE METER (BEAKER) 97 mg/dL 70-110 TESTED AT [address] (test rocd=7297) [facility] [address] TROPONIN [id number] 07:02:00 Test Item Value Reference Range Comments TROPONIN I (BEAKER) (test zzil=397) < ng/mL 0.00-0.03 Troponin I (TnI) levels must be interpreted [...] failure, acidosis, acute neurological disease, and persistent tachyarrhythmia.[id number] 07:00:00 Test Item Value Reference Range Comments PHOSPHORUS (BEAKER) (test jzfw=024) 5.0 mg/dL 2.3-4.7 [id number] 07:00:00 Test Item Value Reference Range Comments MAGNESIUM (BEAKER) (test qamn=509) 1.9 mg/dL 1.6-2.6 BASIC METABOLIC [id number] 07:00:00 Test Item Value Reference Range Comments SODIUM (BEAKER) (test 141 meq/L 136-145 hpjj=802) POTASSIUM (BEAKER) (test 4.0 meq/L 3.5-5.1 hwci=190) CHLORIDE (BEAKER) (test 106 meq/L 98-107 tfcw=123) CO2 (BEAKER) (test 25 meq/L 22-29 hltk=314) BLOOD UREA NITROGEN 14 mg/dL 7-21 (BEAKER) (test lfzc=134) CREATININE (BEAKER) (test 0.72 mg/dL 0.57-1.25 btyn=668) GLUCOSE RANDOM (BEAKER) 109 mg/dL 70-105 (test gzdd=068) CALCIUM (BEAKER) (test 9.5 mg/dL 8.4-10.2 lgsv=135) EGFR (BEAKER) (test 89 mL/min/1.73 sq m ESTIMATED GFR IS NOT btnl=9737) ACCURATE CREATININE CLEARANCE IN PREDICTING GLOMERULAR FILTRATION RATE. ESTIMATED GFR IS NOT APPLICABLE FOR DIALYSIS PATIENTS. HEPATIC FUNCTION [id number] 07:00:00 Test Item Value Reference Range Comments TOTAL PROTEIN (BEAKER) (test midv=365) 7.7 gm/dL 6.0-8.3 ALBUMIN (BEAKER) (test uoiw=7578) 4.0 g/dL 3.5-5.0 BILIRUBIN TOTAL (BEAKER) (test ogly=876) 0.5 mg/dL 0.2-1.2 BILIRUBIN DIRECT (BEAKER) (test aszo=914) 0.2 mg/dL 0.1-0.5 ALKALINE PHOSPHATASE (BEAKER) (test vbjd=293) 69 U/L 40-150 AST (SGOT) (BEAKER) (test wmlz=657) 34 U/L 5-34 ALT (SGPT) (BEAKER) (test gtfk=670) 21 U/L 6-55 PROTHROMBIN [id number] 06:31:00 Test Item Value Reference Range Comments PROTIME (BEAKER) (test ekbi=940) 14.0 seconds 11.7-14.7 INR (BEAKER) (test icpj=399) 1.1 <=5.9 RECOMMENDED COUMADIN/WARFARIN INR THERAPY RANGESSTANDARD DOSE: 2.0 - 3.0 Includes: PROPHYLAXIS forvenous thrombosis, systemic embolization; TREATMENT for venous thrombosis and/or pulmonary embolus.HIGH RISK: Target INR is 2.5-3.5 for patients with mechanical heart valves.CBC W/PLT COUNT & AUTO [id number] 06:28:00 Test Item Value Reference Range Comments WHITE BLOOD CELL COUNT (BEAKER) (test qixu=815) 8.9 K/ L 3.5-10.5 RED BLOOD CELL COUNT (BEAKER) (test dxcu=489) 4.55 M/ L 3.93-5.22 HEMOGLOBIN (BEAKER) (test razu=434) 13.0 GM/DL 11.2-15.7 HEMATOCRIT (BEAKER) (test gxvk=499) 42.0 % 34.1-44.9 MEAN CORPUSCULAR VOLUME (BEAKER) (test fyuk=925) 92.3 fL 79.4-94.8 MEAN CORPUSCULAR HEMOGLOBIN (BEAKER) (test 28.6 pg 25.6-32.2 iuel=871) MEAN CORPUSCULAR HEMOGLOBIN CONC (BEAKER) (test 31.0 GM/DL 32.2-35.5 bwfv=831) RED CELL DISTRIBUTION WIDTH (BEAKER) (test 13.9 % 11.7-14.4 ucxs=857) PLATELET COUNT (BEAKER) (test lntc=329) 202 K/CU MM 150-450 MEAN PLATELET VOLUME (BEAKER) (test oahw=776) 12.6 fL 9.4-12.3 NUCLEATED RED BLOOD CELLS (BEAKER) (test 0 /100 WBC 0-0 vpye=203) NEUTROPHILS RELATIVE PERCENT (BEAKER) (test 70 % bqth=376) LYMPHOCYTES RELATIVE PERCENT (BEAKER) (test 23 % ktjn=364) MONOCYTES RELATIVE PERCENT (BEAKER) (test 4 % olla=309) EOSINOPHILS RELATIVE PERCENT (BEAKER) (test 3 % szpc=607) BASOPHILS RELATIVE PERCENT (BEAKER) (test 0 % iaep=637) NEUTROPHILS ABSOLUTE COUNT (BEAKER) (test 6.19 K/ L 1.56-6.13 owqq=251) LYMPHOCYTES ABSOLUTE COUNT (BEAKER) (test 2.03 K/ L 1.18-3.74 bhop=638) MONOCYTES ABSOLUTE COUNT (BEAKER) (test 0.37 K/ L 0.24-0.36 nbvt=656) EOSINOPHILS ABSOLUTE COUNT (BEAKER) (test 0.24 K/ L 0.04-0.36 sfjr=819) BASOPHILS ABSOLUTE COUNT (BEAKER) (test 0.02 K/ L 0.01-0.08 vuts=530) IMMATURE GRANULOCYTES-RELATIVE PERCENT (BEAKER) 0 % 0-1 (test rwue=4904) CREATINE KINASE (CK), TOTAL AND [id number] 01:39:00 Test Item Value Reference Range Comments CREATINE KINASE TOTAL (BEAKER) (test ntvc=848) 55 U/L 29-200 CREATINE KINASE-MB (BEAKER) (test znhg=501) 1.1 ng/mL 0.0-6.6 CREATINE KINASE-MB INDEX (BEAKER) (test kcky=409) 2.0 % CK-MB Reference Range:<6.7 Normal6.7-10.0 Borderline>10.0 AbnormalTROPONIN [id number] 01:39:00 Test Item Value Reference Range Comments TROPONIN I (BEAKER) (test rqoz=356) < ng/mL 0.00-0.03 Troponin I (TnI) levels must be interpreted [...] failure, acidosis, acute neurological disease, and persistent tachyarrhythmia.POCT-GLUCOSE [id number] 12:39:00 Test Item Value Reference Range Comments POC-GLUCOSE METER (BEAKER) 80 mg/dL 70-110 TESTED AT [address] (test bmyr=9659) [place] [address] POCT-GLUCOSE [id number] 07:07:00 Test Item Value Reference Range Comments POC-GLUCOSE METER (BEAKER) 100 mg/dL 70-110 TESTED AT [address] (test kyfj=2187) [place] [address] POCT-GLUCOSE [id number] 21:12:00 Test Item Value Reference Range Comments POC-GLUCOSE METER (BEAKER) 138 mg/dL 70-110 TESTED AT [address] (test scta=8822) [place] [address] POCT-GLUCOSE [id number] 12:04:00 Test Item Value Reference Range Comments POC-GLUCOSE METER (BEAKER) 113 mg/dL 70-110 TESTED AT [address] (test rfaf=1743) [place] [address] BASIC METABOLIC [id number] 04:26:00 Test Item Value Reference Range Comments SODIUM (BEAKER) (test 141 meq/L 136-145 hvzh=583) POTASSIUM (BEAKER) (test 4.2 meq/L 3.5-5.1 Specimen moderately hyfh=751) hemolyzed CHLORIDE (BEAKER) (test 107 meq/L 98-107 gqbk=977) CO2 (BEAKER) (test 25 meq/L 22-29 epzx=525) BLOOD UREA NITROGEN 13 mg/dL 7-21 (BEAKER) (test uzbv=590) CREATININE (BEAKER) (test 0.61 mg/dL 0.57-1.25 Specimen moderately idqb=013) hemolyzed GLUCOSE RANDOM (BEAKER) 93 mg/dL 70-105 (test swdg=845) CALCIUM (BEAKER) (test 9.0 mg/dL 8.4-10.2 dcwd=605) EGFR (BEAKER) (test 108 mL/min/1.73 sq m ESTIMATED GFR IS NOT kkht=3676) ACCURATE CREATININE CLEARANCE IN PREDICTING GLOMERULAR FILTRATION RATE. ESTIMATED GFR IS NOT APPLICABLE FOR DIALYSIS PATIENTS. CBC W/PLT COUNT & AUTO [id number] 04:02:00 Test Item Value Reference Range Comments WHITE BLOOD CELL COUNT (BEAKER) (test yxsn=705) 8.4 K/ L 3.5-10.5 RED BLOOD CELL COUNT (BEAKER) (test kvtr=305) 4.15 M/ L 3.93-5.22 HEMOGLOBIN (BEAKER) (test wrzc=675) 11.8 GM/DL 11.2-15.7 HEMATOCRIT (BEAKER) (test pzxt=199) 37.9 % 34.1-44.9 MEAN CORPUSCULAR VOLUME (BEAKER) (test lgbk=102) 91.3 fL 79.4-94.8 MEAN CORPUSCULAR HEMOGLOBIN (BEAKER) (test 28.4 pg 25.6-32.2 uxne=182) MEAN CORPUSCULAR HEMOGLOBIN CONC (BEAKER) (test 31.1 GM/DL 32.2-35.5 byux=894) RED CELL DISTRIBUTION WIDTH (BEAKER) (test 14.1 % 11.7-14.4 nqvx=773) PLATELET COUNT (BEAKER) (test maig=381) 200 K/CU MM 150-450 MEAN PLATELET VOLUME (BEAKER) (test nxjt=802) 11.9 fL 9.4-12.3 NUCLEATED RED BLOOD CELLS (BEAKER) (test 0 /100 WBC 0-0 wjkg=922) NEUTROPHILS RELATIVE PERCENT (BEAKER) (test 73 % ddcc=338) LYMPHOCYTES RELATIVE PERCENT (BEAKER) (test 19 % uyht=286) MONOCYTES RELATIVE PERCENT (BEAKER) (test 5 % tzzq=009) EOSINOPHILS RELATIVE PERCENT (BEAKER) (test 3 % bhzp=572) BASOPHILS RELATIVE PERCENT (BEAKER) (test 0 % qtji=554) NEUTROPHILS ABSOLUTE COUNT (BEAKER) (test 6.08 K/ L 1.56-6.13 raje=420) LYMPHOCYTES ABSOLUTE COUNT (BEAKER) (test 1.62 K/ L 1.18-3.74 izav=983) MONOCYTES ABSOLUTE COUNT (BEAKER) (test 0.39 K/ L 0.24-0.36 ftig=435) EOSINOPHILS ABSOLUTE COUNT (BEAKER) (test 0.24 K/ L 0.04-0.36 stph=632) BASOPHILS ABSOLUTE COUNT (BEAKER) (test 0.01 K/ L 0.01-0.08 jfst=582) IMMATURE GRANULOCYTES-RELATIVE PERCENT (BEAKER) 1 % 0-1 (test nfay=2378) CLOSTRIDIUM DIFFICILE TOXIN [id number] 13:44:00 Test Item Value Reference Range Comments CLOSTRIDIUM DIFFICILE TOXIN, PCR (BEAKER) (test Not Detected Not Detected kmgi=0277) This qualitative real-time polymerase chain reaction assay detects the tcdB gene , encoded on the C.difficile pathogenicity locus (PaLoc). The product of tcdB, toxin B, is a cytotoxin essential for causing C.difficile-associated disease ( CDAD) and is found in virtually all toxigenic C.difficile.This assay is performed for patients suspected of having either community-acquired or nosocomial CDAD. Accordingly, only symptomatic patients should be tested and formed stools will be rejected unless ileus is present (i.e., specified when ordering). Patients may be colonized with toxigenic C.difficile strains not causing active disease; therefore, clinical correlation is needed when deciding how to manage patients with a positive test result.The assay has not been validated as a test of cure as amplifiable nucleic acid may persist after effective treatment; therefore, follow-up testing of a positive result is not recommended.CT, CTANGIO [id number] 06:59:00Addendum BeginsREPORT STATUS:A Three-dimensional post intravenous contrast images of the cerebral vasculature were created on a free standing workstation for better visualization of cerebral vascular anatomy and pathology. Signed: Skip Gardner MDReport Verified Date/Time: 04/12/2017 06:59:20 Reading Location: [facility] C013X Ortho Consult Reading RoomAddendum EndsFINAL REPORT Noncontrast CT scan of the brain: Clinical history : Left-sided weakness status post TPA at an outside hospital.Comparison study: MRI of the brain 06/08/2016 Technique: Contiguousaxial images were obtained of the brain without [...] effacement, intraparenchymal hemorrhage, or extra axial fluid collection.No acute infarction is identified. The visualized paranasal sinuses and tympanomastoid cavities are well pneumatized. Normal orbital contents, skull base,and calvarium. Impression: 1. No acute abnormalities. 2. [...] the patient's body habitus. Dose modulation, iterative reconstruction,and/or weight based adjustment of the mA/kV was utilized to reduce the radiation dose to as low as reasonably achievable. FINDINGS: Limited diagnostic quality CT angiogram of the brain secondary to suboptimal IV. The visualized neck and intracranial internal carotid arteries, middle cerebral arteries,and anterior cerebral arteries demonstrate no stenosis, occlusion, [...] veins bilaterally. IMPRESSION: 1. Suboptimal CT angiogram ofthe brain secondary to a poor IV. No acute abnormalities are detected. CT angiogram of the neck arteries could not be obtained secondary to the patient's body habitus. 2. Results called to Dr. Hooks on 04/07/2017 at 12:50 AM. Signed: Skip Gardner MDReport Verified Date/Time: 04/07/2017 01:12:44 Reading Location: [facility] C013X Ortho Consult Reading Room BASIC METABOLIC [id number] 05:37:00 Test Item Value Reference Range Comments SODIUM (BEAKER) (test 142 meq/L 136-145 srfb=930) POTASSIUM (BEAKER) (test 3.7 meq/L 3.5-5.1 Specimen slightly rhhf=744) hemolyzed CHLORIDE (BEAKER) (test 105 meq/L 98-107 wnll=604) CO2 (BEAKER) (test 27 meq/L 22-29 nung=538) BLOOD UREA NITROGEN 11 mg/dL 7-21 (BEAKER) (test xfrc=807) CREATININE (BEAKER) (test 0.66 mg/dL 0.57-1.25 Specimen slightly ctaa=974) hemolyzed GLUCOSE RANDOM (BEAKER) 97 mg/dL 70-105 (test kpzo=127) CALCIUM (BEAKER) (test 9.2 mg/dL 8.4-10.2 pcog=081) EGFR (BEAKER) (test 99 mL/min/1.73 sq m ESTIMATED GFR IS NOT ztyc=0455) ACCURATE CREATININE CLEARANCE IN PREDICTING GLOMERULAR FILTRATION RATE. ESTIMATED GFR IS NOT APPLICABLE FOR DIALYSIS PATIENTS. CBC (HEMOGRAM ONLY)2017-04-12 05:17:00 Test Item Value Reference Range Comments WHITE BLOOD CELL COUNT (BEAKER) (test imfe=914) 7.7 K/ L 3.5-10.5 RED BLOOD CELL COUNT (BEAKER) (test qlcq=269) 4.17 M/ L 3.93-5.22 HEMOGLOBIN (BEAKER) (test xxdy=603) 12.0 GM/DL 11.2-15.7 HEMATOCRIT (BEAKER) (test nooh=382) 38.0 % 34.1-44.9 MEAN CORPUSCULAR VOLUME (BEAKER) (test slbx=441) 91.1 fL 79.4-94.8 MEAN CORPUSCULAR HEMOGLOBIN (BEAKER) (test 28.8 pg 25.6-32.2 qvor=640) MEAN CORPUSCULAR HEMOGLOBIN CONC (BEAKER) (test 31.6 GM/DL 32.2-35.5 lpjw=597) RED CELL DISTRIBUTION WIDTH (BEAKER) (test 14.0 % 11.7-14.4 qzco=539) PLATELET COUNT (BEAKER) (test bgfh=205) 219 K/CU MM 150-450 MEAN PLATELET VOLUME (BEAKER) (test hukr=016) 11.6 fL 9.4-12.3 NUCLEATED RED BLOOD CELLS (BEAKER) (test 0 /100 WBC 0-0 sqhv=950) POCT-GLUCOSE [id number] 17:55:00 Test Item Value Reference Range Comments POC-GLUCOSE METER (BEAKER) 111 mg/dL 70-110 TESTED AT [address] (test yecn=0308) [place] [address] POCT-GLUCOSE [id number] 12:02:00 Test Item Value Reference Range Comments POC-GLUCOSE METER (BEAKER) 100 mg/dL 70-110 TESTED AT [address] (test thzu=0936) [place] [address] POCT-GLUCOSE [id number] 07:50:00 Test Item Value Reference Range Comments POC-GLUCOSE METER (BEAKER) 110 mg/dL 70-110 TESTED AT [address] (test owsm=2905) [place] [address] POCT-GLUCOSE [id number] 16:56:00 Test Item Value Reference Range Comments POC-GLUCOSE METER (BEAKER) 104 mg/dL 70-110 TESTED AT [address] (test erbs=5140) [place] [address] POCT-GLUCOSE [id number] 12:22:00 Test Item Value Reference Range Comments POC-GLUCOSE METER (BEAKER) 84 mg/dL 70-110 TESTED AT [address] (test zwbi=7745) [place] [address] HEMOGLOBIN [id number] 08:46:00 Test Item Value Reference Range Comments HEMOGLOBIN A1C (BEAKER) (test xkgy=682) 6.2 % 4.3-6.1 BASIC METABOLIC [id number] 06:42:00 Test Item Value Reference Range Comments SODIUM (BEAKER) (test 142 meq/L 136-145 mxng=368) POTASSIUM (BEAKER) (test 4.1 meq/L 3.5-5.1 Specimen slightly upqq=834) hemolyzed CHLORIDE (BEAKER) (test 104 meq/L 98-107 uiuo=260) CO2 (BEAKER) (test 28 meq/L 22-29 nscy=016) BLOOD UREA NITROGEN 9 mg/dL 7-21 (BEAKER) (test fxal=621) CREATININE (BEAKER) (test 0.60 mg/dL 0.57-1.25 Specimen slightly hdcv=100) hemolyzed GLUCOSE RANDOM (BEAKER) 96 mg/dL 70-105 (test pmrx=004) CALCIUM (BEAKER) (test 9.1 mg/dL 8.4-10.2 rcwu=214) EGFR (BEAKER) (test 110 mL/min/1.73 sq m ESTIMATED GFR IS NOT kktz=6598) ACCURATE CREATININE CLEARANCE IN PREDICTING GLOMERULAR FILTRATION RATE. ESTIMATED GFR IS NOT APPLICABLE FOR DIALYSIS PATIENTS. CBC W/PLT COUNT & AUTO [id number] 06:19:00 Test Item Value Reference Range Comments WHITE BLOOD CELL COUNT (BEAKER) (test ibcx=844) 7.5 K/ L 3.5-10.5 RED BLOOD CELL COUNT (BEAKER) (test myzy=521) 4.12 M/ L 3.93-5.22 HEMOGLOBIN (BEAKER) (test skux=743) 11.8 GM/DL 11.2-15.7 HEMATOCRIT (BEAKER) (test arwt=086) 37.6 % 34.1-44.9 MEAN CORPUSCULAR VOLUME (BEAKER) (test nnwy=563) 91.3 fL 79.4-94.8 MEAN CORPUSCULAR HEMOGLOBIN (BEAKER) (test 28.6 pg 25.6-32.2 czxb=771) MEAN CORPUSCULAR HEMOGLOBIN CONC (BEAKER) (test 31.4 GM/DL 32.2-35.5 nsrw=797) RED CELL DISTRIBUTION WIDTH (BEAKER) (test 13.8 % 11.7-14.4 gruj=454) PLATELET COUNT (BEAKER) (test adzs=986) 192 K/CU MM 150-450 MEAN PLATELET VOLUME (BEAKER) (test xhzh=233) 11.6 fL 9.4-12.3 NUCLEATED RED BLOOD CELLS (BEAKER) (test 0 /100 WBC 0-0 idhx=678) NEUTROPHILS RELATIVE PERCENT (BEAKER) (test 77 % moci=114) LYMPHOCYTES RELATIVE PERCENT (BEAKER) (test 16 % tgrx=171) MONOCYTES RELATIVE PERCENT (BEAKER) (test 4 % wjku=771) EOSINOPHILS RELATIVE PERCENT (BEAKER) (test 2 % xbmt=463) BASOPHILS RELATIVE PERCENT (BEAKER) (test 0 % unvn=034) NEUTROPHILS ABSOLUTE COUNT (BEAKER) (test 5.82 K/ L 1.56-6.13 wbuy=910) LYMPHOCYTES ABSOLUTE COUNT (BEAKER) (test 1.21 K/ L 1.18-3.74 nyjn=426) MONOCYTES ABSOLUTE COUNT (BEAKER) (test 0.31 K/ L 0.24-0.36 lwun=774) EOSINOPHILS ABSOLUTE COUNT (BEAKER) (test 0.15 K/ L 0.04-0.36 jlem=931) BASOPHILS ABSOLUTE COUNT (BEAKER) (test 0.01 K/ L 0.01-0.08 rhyz=408) IMMATURE GRANULOCYTES-RELATIVE PERCENT (BEAKER) 1 % 0-1 (test gwvx=3646) POCT-GLUCOSE [id number] 12:07:00 Test Item Value Reference Range Comments POC-GLUCOSE METER (BEAKER) 110 mg/dL 70-110 TESTED AT [facility] [address] (test louy=2892) [facility] [address] CT, BRAIN, WITHOUT [id number] 06:55:00FINAL REPORT Clinical history : Decreased alertnessComparison study: CT scanof the brain 04/08/2017 Technique: Contiguous axial images were obtained of the brain without intravenous contrast. This exam was performed according to our departmental dose optimization program, which includes automated exposure control, adjustment of the mA and/or kV according to the patient's size and/or use of the iterative reconstruction technique. FINDINGS: No hydrocephalus, mass , midline shift, cisternal effacement, intraparenchymal hemorrhage, or extra axial fluid collection. No acute infarction is identified. The visualized paranasal sinuses and tympanomastoid cavities are well pneumatized. Normal orbital contents, skull base, and calvarium. Impression: No acute abnormalities. Signed: Skip Gardner Verified Date/Time: 04/09/2017 06 :55:25 Reading Location: [id number] Reading [facility] BASIC METABOLIC [id number] 05:57:00 Test Item Value Reference Range Comments SODIUM (BEAKER) (test 140 meq/L 136-145 igeq=927) POTASSIUM (BEAKER) (test 3.7 meq/L 3.5-5.1 ixaq=336) CHLORIDE (BEAKER) (test 103 meq/L 98-107 mhzd=192) CO2 (BEAKER) (test 29 meq/L 22-29 umaz=912) BLOOD UREA NITROGEN 7 mg/dL 7-21 (BEAKER) (test jscj=148) CREATININE (BEAKER) (test 0.56 mg/dL 0.57-1.25 imqo=712) GLUCOSE RANDOM (BEAKER) 110 mg/dL 70-105 (test hlcv=413) CALCIUM (BEAKER) (test 8.7 mg/dL 8.4-10.2 knfa=749) EGFR (BEAKER) (test 119 mL/min/1.73 sq m ESTIMATED GFR IS NOT vbzz=6218) ACCURATE CREATININE CLEARANCE IN PREDICTING GLOMERULAR FILTRATION RATE. ESTIMATED GFR IS NOT APPLICABLE FOR DIALYSIS PATIENTS. CBC W/PLT COUNT & AUTO [id number] 04:54:00 Test Item Value Reference Range Comments WHITE BLOOD CELL COUNT (BEAKER) (test uxgx=235) 8.1 K/ L 3.5-10.5 RED BLOOD CELL COUNT (BEAKER) (test tpct=695) 4.07 M/ L 3.93-5.22 HEMOGLOBIN (BEAKER) (test tgsm=914) 11.6 GM/DL 11.2-15.7 HEMATOCRIT (BEAKER) (test miqd=094) 37.3 % 34.1-44.9 MEAN CORPUSCULAR VOLUME (BEAKER) (test yffa=037) 91.6 fL 79.4-94.8 MEAN CORPUSCULAR HEMOGLOBIN (BEAKER) (test 28.5 pg 25.6-32.2 fcip=894) MEAN CORPUSCULAR HEMOGLOBIN CONC (BEAKER) (test 31.1 GM/DL 32.2-35.5 sgyp=209) RED CELL DISTRIBUTION WIDTH (BEAKER) (test 13.6 % 11.7-14.4 lufk=863) PLATELET COUNT (BEAKER) (test ajjk=437) 171 K/CU MM 150-450 MEAN PLATELET VOLUME (BEAKER) (test yxrz=652) 11.3 fL 9.4-12.3 NUCLEATED RED BLOOD CELLS (BEAKER) (test 0 /100 WBC 0-0 vmdh=201) NEUTROPHILS RELATIVE PERCENT (BEAKER) (test 77 % wswt=389) LYMPHOCYTES RELATIVE PERCENT (BEAKER) (test 16 % pemd=297) MONOCYTES RELATIVE PERCENT (BEAKER) (test 5 % dkzb=095) EOSINOPHILS RELATIVE PERCENT (BEAKER) (test 2 % lnnj=016) BASOPHILS RELATIVE PERCENT (BEAKER) (test 0 % kmvl=844) NEUTROPHILS ABSOLUTE COUNT (BEAKER) (test 6.20 K/ L 1.56-6.13 hask=418) LYMPHOCYTES ABSOLUTE COUNT (BEAKER) (test 1.30 K/ L 1.18-3.74 vxoe=757) MONOCYTES ABSOLUTE COUNT (BEAKER) (test 0.38 K/ L 0.24-0.36 zzyp=935) EOSINOPHILS ABSOLUTE COUNT (BEAKER) (test 0.14 K/ L 0.04-0.36 cmqv=624) BASOPHILS ABSOLUTE COUNT (BEAKER) (test 0.01 K/ L 0.01-0.08 nozc=384) IMMATURE GRANULOCYTES-RELATIVE PERCENT (BEAKER) 1 % 0-1 (test eqpr=5746) POCT-GLUCOSE [id number] 01:34:00 Test Item Value Reference Range Comments POC-GLUCOSE METER (BEAKER) 92 mg/dL 70-110 TESTED AT [address] (test plwh=9961) [place] [id number] POCT-GLUCOSE [id number] 19:20:00 Test Item Value Reference Range Comments POC-GLUCOSE METER (BEAKER) 85 mg/dL 70-110 TESTED AT [address] (test ljka=6733) [place] [id number] CT, BRAIN, WITHOUT [id number] 15:47:00FINAL REPORT CT head without contrast. Comparisons: April 07 Reason for exam: Stroke. Discussion: Multiple axial CT images of the head are provided without contrast evaluated in brain and bone windows. Dose modulation, iterative reconstruction, and/or weight based adjustment of the mA/kV was utilized to reduce the radiation dose to as low as reasonably achievable.There is no CT evidence of intracranial hemorrhage, mass-effect, hydrocephalus, shift , or extra-axial collections. While I see no definitive acute large vessel infarction, please note that CT is not sensitive in detecting or distinguishing acute ischemic disease. The visualized dural sinus regions, orbital contents, paranasal sinuses, bones and surrounding soft tissues are unremarkable. Impressions: 1. No specific evidence of acute intracranial abnormality. Signed: Darren Tijerinaeport Verified Date/Time: 04/08/2017 15:47:42 POCT- GLUCOSE [id number] 12:44:00 Test Item Value Reference Range Comments POC-GLUCOSE METER (BEAKER) 94 mg/dL 70-110 TESTED AT [facility] [address] [facility] (test xwfn=9955) [facility] [address] BASIC METABOLIC [id number] 05:05:00 Test Item Value Reference Range Comments SODIUM (BEAKER) (test 142 meq/L 136-145 srek=443) POTASSIUM (BEAKER) (test 4.0 meq/L 3.5-5.1 mczg=406) CHLORIDE (BEAKER) (test 107 meq/L 98-107 njwu=220) CO2 (BEAKER) (test 27 meq/L 22-29 jdnd=370) BLOOD UREA NITROGEN 9 mg/dL 7-21 (BEAKER) (test snbo=912) CREATININE (BEAKER) (test 0.59 mg/dL 0.57-1.25 tooc=144) GLUCOSE RANDOM (BEAKER) 105 mg/dL 70-105 (test beqg=224) CALCIUM (BEAKER) (test 8.7 mg/dL 8.4-10.2 pxii=881) EGFR (BEAKER) (test 112 mL/min/1.73 sq m ESTIMATED GFR IS NOT vhtf=5653) ACCURATE CREATININE CLEARANCE IN PREDICTING GLOMERULAR FILTRATION RATE. ESTIMATED GFR IS NOT APPLICABLE FOR DIALYSIS PATIENTS. CBC W/PLT COUNT & AUTO [id number] 04:28:00 Test Item Value Reference Range Comments WHITE BLOOD CELL COUNT (BEAKER) (test fkmv=857) 7.1 K/ L 3.5-10.5 RED BLOOD CELL COUNT (BEAKER) (test peir=495) 3.90 M/ L 3.93-5.22 HEMOGLOBIN (BEAKER) (test jcdk=823) 11.0 GM/DL 11.2-15.7 HEMATOCRIT (BEAKER) (test mkji=471) 36.6 % 34.1-44.9 MEAN CORPUSCULAR VOLUME (BEAKER) (test lurf=857) 93.8 fL 79.4-94.8 MEAN CORPUSCULAR HEMOGLOBIN (BEAKER) (test 28.2 pg 25.6-32.2 zzdg=389) MEAN CORPUSCULAR HEMOGLOBIN CONC (BEAKER) (test 30.1 GM/DL 32.2-35.5 zycb=625) RED CELL DISTRIBUTION WIDTH (BEAKER) (test 14.2 % 11.7-14.4 unnb=971) PLATELET COUNT (BEAKER) (test ulpb=863) 187 K/CU MM 150-450 MEAN PLATELET VOLUME (BEAKER) (test ewhi=532) 10.9 fL 9.4-12.3 NUCLEATED RED BLOOD CELLS (BEAKER) (test 0 /100 WBC 0-0 hphd=031) NEUTROPHILS RELATIVE PERCENT (BEAKER) (test 73 % mwwe=185) LYMPHOCYTES RELATIVE PERCENT (BEAKER) (test 19 % ppmv=074) MONOCYTES RELATIVE PERCENT (BEAKER) (test 5 % jkym=368) EOSINOPHILS RELATIVE PERCENT (BEAKER) (test 2 % jyko=987) BASOPHILS RELATIVE PERCENT (BEAKER) (test 0 % qqnw=995) NEUTROPHILS ABSOLUTE COUNT (BEAKER) (test 5.22 K/ L 1.56-6.13 qokb=707) LYMPHOCYTES ABSOLUTE COUNT (BEAKER) (test 1.37 K/ L 1.18-3.74 msmy=250) MONOCYTES ABSOLUTE COUNT (BEAKER) (test 0.34 K/ L 0.24-0.36 cdyg=799) EOSINOPHILS ABSOLUTE COUNT (BEAKER) (test 0.13 K/ L 0.04-0.36 hcjv=152) BASOPHILS ABSOLUTE COUNT (BEAKER) (test 0.01 K/ L 0.01-0.08 mcef=922) IMMATURE GRANULOCYTES-RELATIVE PERCENT (BEAKER) 1 % 0-1 (test ymnf=0247) POCT-GLUCOSE [id number] 17:32:00 Test Item Value Reference Range Comments POC-GLUCOSE METER (BEAKER) 90 mg/dL 70-110 TESTED AT [facility] [address] [facility] (test ofqh=1129) [facility] [address] POCT-GLUCOSE [id number] 12:02:00 Test Item Value Reference Range Comments POC-GLUCOSE METER (BEAKER) 91 mg/dL 70-110 TESTED AT [facility] [address] (test sxda=0838) [facility] [address] EEG AWAKE AND [id number] 11:38:00Reason for exam:->R/O subclinical seizuresDATE OF [id number] OF REPORT: [id number]: [id number]: 17- 1801Start time: 09:54Stop time: 10:18ICD-10: G 93.40CPT Code: 19977 HISTORY: 41 y.o. female with history of morbid obesity, DM2 who presented today to OSH with R sided facial droop and LUE weakness . Patient was evaluated at OSH where patient was started with tPA after normal CT. Now with acute encephalopathy MEDICATIONS THAT COULD AFFECT EEG: TECHNICAL SUMMARY: This is a digital EEG recorded with 32 input channels on a Venga system and then reviewed with bipolar and referential montages using the modified combinatorial system nomenclature. DESCRIPTION OF RECORD: During the brief maximally alert state a 9- 10 Hz posteriordominant rhythm was seen that was symmetric, reactive to eye opening but not sustained . More anteriorly, low voltage frontocentral beta predominated. Drowsiness was characterized by alpha attenuation and increased frontocentral theta. No sleep structures seen.HV: Hyperventilation was not performed. PHOTIC STIMULATION: Photic Stimulation was not done IMPRESSION: Normal awake and drowsy EEG.CLINICAL CORRELATION: Because the patient is mostly drowsy or sleep (and only briefly awake), this recordingcondition has low sensitivity for differentiating mild encephalopathy from normal maynor-sleep somnolence. An EEG without epileptiform discharges does not exclude the possibility of epilepsy. If the clinical suspicion of epilepsy remains, consider additional EEG recordings. Javi Mae MDNeurophysiology Fellow [id number] Note: I personally reviewed this EEG record in its entirety and I agreewith the details of this report. Kitty Benson MD, PhDEpilepsy Attending 11 :38 AMCREATINE KINASE (CK), TOTAL AND [id number] 09:35:00 Test Item Value Reference Range Comments CREATINE KINASE TOTAL (BEAKER) (test jjar=580) 52 U/L 29-200 CREATINE KINASE-MB (BEAKER) (test bpey=490) 1.2 ng/mL 0.0-6.6 CREATINE KINASE-MB INDEX (BEAKER) (test ryua=481) 2.3 % CK-MB Reference Range:<6.7 Normal6.7-10.0 Borderline>10.0 AbnormalTROPONIN [id number] 09:31:00 Test Item Value Reference Range Comments TROPONIN I (BEAKER) (test tbdw=869) < ng/mL 0.00-0.03 Troponin I (TnI) levels must be interpreted [...] failure, acidosis, acute neurological disease, and persistent tachyarrhythmia.[id number] 09:28:00 Test Item Value Reference Range Comments AMMONIA (BEAKER) (test csnd=665) 34 mol/L 18-72 TSH/FREE T4 IF [id number] 04:28:00 Test Item Value Reference Range Comments THYROID STIMULATING HORMONE (BEAKER) (test 1.12 uIU/mL 0.35-4.94 momd=606) VITAMIN B12 AND [id number] 04:28:00 Test Item Value Reference Range Comments VITAMIN B12 (BEAKER) (test sxwc=385) 417 pg/mL 213-816 FOLATE (BEAKER) (test slxy=007) 13.6 ng/mL >=7.0 CBC W/PLT COUNT & AUTO [id number] 03:27:00 Test Item Value Reference Range Comments WHITE BLOOD CELL COUNT (BEAKER) (test wyjn=983) 8.1 K/ L 3.5-10.5 RED BLOOD CELL COUNT (BEAKER) (test pgsc=781) 3.91 M/ L 3.93-5.22 HEMOGLOBIN (BEAKER) (test bhqd=132) 11.4 GM/DL 11.2-15.7 HEMATOCRIT (BEAKER) (test lqcr=507) 35.8 % 34.1-44.9 MEAN CORPUSCULAR VOLUME (BEAKER) (test mlwa=078) 91.6 fL 79.4-94.8 MEAN CORPUSCULAR HEMOGLOBIN (BEAKER) (test 29.2 pg 25.6-32.2 rsmw=778) MEAN CORPUSCULAR HEMOGLOBIN CONC (BEAKER) (test 31.8 GM/DL 32.2-35.5 xrhe=571) RED CELL DISTRIBUTION WIDTH (BEAKER) (test 14.3 % 11.7-14.4 apym=283) PLATELET COUNT (BEAKER) (test farp=998) 166 K/CU MM 150-450 MEAN PLATELET VOLUME (BEAKER) (test mkel=319) 12.4 fL 9.4-12.3 NUCLEATED RED BLOOD CELLS (BEAKER) (test 0 /100 WBC 0-0 rnga=303) NEUTROPHILS RELATIVE PERCENT (BEAKER) (test 78 % bado=898) LYMPHOCYTES RELATIVE PERCENT (BEAKER) (test 16 % lqjo=713) MONOCYTES RELATIVE PERCENT (BEAKER) (test 4 % qrjk=658) EOSINOPHILS RELATIVE PERCENT (BEAKER) (test 1 % zump=788) BASOPHILS RELATIVE PERCENT (BEAKER) (test 0 % rvsp=209) NEUTROPHILS ABSOLUTE COUNT (BEAKER) (test 6.27 K/ L 1.56-6.13 ofpl=501) LYMPHOCYTES ABSOLUTE COUNT (BEAKER) (test 1.30 K/ L 1.18-3.74 hahp=102) MONOCYTES ABSOLUTE COUNT (BEAKER) (test 0.32 K/ L 0.24-0.36 zpwr=546) EOSINOPHILS ABSOLUTE COUNT (BEAKER) (test 0.09 K/ L 0.04-0.36 cuer=202) BASOPHILS ABSOLUTE COUNT (BEAKER) (test 0.02 K/ L 0.01-0.08 kfgg=078) IMMATURE GRANULOCYTES-RELATIVE PERCENT (BEAKER) 1 % 0-1 (test pprz=7656) CREATINE KINASE (CK), TOTAL AND [id number] 03:11:00 Test Item Value Reference Range Comments CREATINE KINASE TOTAL (BEAKER) (test xakf=671) 71 U/L 29-200 CREATINE KINASE-MB (BEAKER) (test ewwx=905) 1.5 ng/mL 0.0-6.6 CREATINE KINASE-MB INDEX (BEAKER) (test rduc=176) 2.1 % CK-MB Reference Range:<6.7 Normal6.7-10.0 Borderline>10.0 AbnormalFastingFastingTROPONIN [id number] 03:11:00 Test Item Value Reference Range Comments TROPONIN I (BEAKER) (test zgmt=209) < ng/mL 0.00-0.03 Troponin I (TnI) levels must be interpreted [...] failure, acidosis, acute neurological disease, and persistent tachyarrhythmia.FastingBASIC METABOLIC [id number] 03:04:00 Test Item Value Reference Range Comments SODIUM (BEAKER) (test 139 meq/L 136-145 roxo=577) POTASSIUM (BEAKER) (test 4.3 meq/L 3.5-5.1 Specimen moderately mfna=914) hemolyzed CHLORIDE (BEAKER) (test 107 meq/L 98-107 unmv=551) CO2 (BEAKER) (test 24 meq/L 22-29 uvrq=295) BLOOD UREA NITROGEN 12 mg/dL 7-21 (BEAKER) (test vmac=508) CREATININE (BEAKER) (test 0.68 mg/dL 0.57-1.25 Specimen moderately bhyk=325) hemolyzed GLUCOSE RANDOM (BEAKER) 175 mg/dL 70-105 (test dpne=204) CALCIUM (BEAKER) (test 8.5 mg/dL 8.4-10.2 ecqf=484) EGFR (BEAKER) (test 95 mL/min/1.73 sq m ESTIMATED GFR IS NOT pgfg=2585) ACCURATE CREATININE CLEARANCE IN PREDICTING GLOMERULAR FILTRATION RATE. ESTIMATED GFR IS NOT APPLICABLE FOR DIALYSIS PATIENTS. FastingLIPID [id number] 03:04:00 Test Item Value Reference Range Comments TRIGLYCERIDES (BEAKER) (test 99 mg/dL Specimen moderately tjgd=350) hemolyzed CHOLESTEROL (BEAKER) (test 139 mg/dL Specimen moderately ufzf=449) hemolyzed HDL CHOLESTEROL (BEAKER) (test 43 mg/dL rmyf=246) LDL CHOLESTEROL CALCULATED 76 mg/dL (BEAKER) (test kspw=164) Triglyceride Reference Range: Low Risk <150 Borderline 150- 199 High Risk 200-499 Very High Risk >=500Cholesterol Reference Range: Low Risk <200 Borderline 200-239 High Risk > 240HDL Cholesterol Reference Range: Low Risk >=60 High Risk <40LDL Cholesterol Reference Range: Optimal <100 Near Optimal 100-129 Borderline 130-159 High 160-189 Very High >=190 FastingHEPATIC FUNCTION [id number] 03:04:00 Test Item Value Reference Range Comments TOTAL PROTEIN (BEAKER) (test 7.2 gm/dL 6.0-8.3 Specimen moderately hemolyzed frgd=441) ALBUMIN (BEAKER) (test 3.4 g/dL 3.5-5.0 Specimen moderately hemolyzed aevt=9625) BILIRUBIN TOTAL (BEAKER) (test 0.3 mg/dL 0.2-1.2 Specimen moderately hemolyzed rpzh=702) BILIRUBIN DIRECT (BEAKER) 0.1 mg/dL 0.1-0.5 Specimen moderately hemolyzed (test pcks=355) ALKALINE PHOSPHATASE (BEAKER) 74 U/L 40-150 (test pqgk=333) AST (SGOT) (BEAKER) (test 37 U/L 5-34 Specimen moderately hemolyzed pyas=233) ALT (SGPT) (BEAKER) (test 18 U/L 6-55 Specimen moderately uffy=173) hemolyzed Fasting
[2017-09-14] MEDS ORDERED: DIPHENHYDRAMINE 50 MG/ML VIAL ONE (01:00)
[2017-09-14] MEDS ORDERED: METOCLOPRAMIDE 10 MG/2mL INJ ONE (01:00)
[2017-09-14] MEDS ORDERED: NA CHLORIDE 0.9% 1,000 ML ONE (01:00)
--- NOTE | 2017-09-14 04:17 | EDPHYS ---
Physician Documentation [facility] Name: Kelle Calderón Age: 42 yrs Sex: Female : 1975 Arrival Date: 09/13/2017 Time: 23:00 Bed 23 Private MD: ED Physician Fitz Farley HPI: 09/14 01:00 This 42 yrs old Female presents to ER via Ambulatory with complaints of pm1 Headache. 01:00 The patient complains of pain to the forehead. The patient describes the headache as pm1 aching. Onset: The symptoms/episode began/occurred yesterday. Associated signs and symptoms: Pertinent positives: nausea, Pertinent negatives: fever, neck stiffness, rash, sinus congestion, sinus tenderness, vomiting. Severity of symptoms: in the emergency department the pain is actually worse. Headache History: Other Different than prior headaches but has more frequent headaches since stroke in March of last year. The symptoms are alleviated by nothing. the symptoms are aggravated by nothing. The patient has experienced similar episodes in the past, multiple times. Patient was concerned that her blood sugar was too high. No polyphagia, polydipsia, polyuria. 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:13 LMP N/A - Hysterectomy ao Historical: - Allergies: 23:13 No Known Allergies; ao - Home Meds: 23:13 albuterol sulfate 2.5 mg /3 mL (0.083 %) Inhl nebu twice a day [Active]; amlodipine 10 ao mg tab 1 tab once daily [Active]; aspirin 81 mg Oral TbEC 1 tab once daily [Active]; atorvastatin 40 mg Oral tab 1 tab once daily [Active]; lisinopril 20 mg Oral tab 1 tab once daily [Active]; Linzess 145 mcg Oral cap 1 cap once daily [Active]; metformin 500 mg Oral tab 1 tab 2 times per day [Active]; gabapentin 100 mg Oral cap 3 caps 3 times per day [Active]; pantoprazole 40 mg Oral TbEC 1 tab once daily [Active]; venlafaxine 75 mg Oral tab 2 times per day [Active]; prednisone 5 mg Oral tab once daily [Active]; - PMHx: 23:13 Asthma; bells palsy; CVA; Depression; Diabetes - NIDDM; GERD; Hypertension; Irritable ao bowel syndrome; Kidney stones; Migraines; Sleep Apnea; Chronic pain; Lymphedema; - PSHx: 23:13 ; Knee surgery; Tubal ligation; Hysterectomy; Hernia repair; ao - Immunization history:: Adult Immunizations up to date. - Social history:: Smoking status: Patient/guardian denies using tobacco, Patient/guardian denies using alcohol, but has a distant history of alcohol abuse, street drugs, but used to use street drugs. ROS: 09/14 01:00 Constitutional: Negative for fever, chills, and weight loss, Eyes: Negative for injury, pm1 pain, redness, and discharge, ENT: Negative for injury, pain, and discharge, Neck: Negative for injury, pain, and swelling, Cardiovascular: Negative for chest pain, palpitations, and edema, Respiratory: Negative for shortness of breath, cough, wheezing, and pleuritic chest pain, Abdomen/GI: Negative for abdominal pain, nausea, vomiting, diarrhea, and constipation, Back: Negative for injury and pain, MS/Extremity: Negative for injury and deformity, Skin: Negative for injury, rash, and discoloration. Neuro: Positive for headache, Negative for dizziness, seizure activity. Exam: 01:00 Constitutional: This is a well developed, well nourished patient who is awake, alert, pm1 and in no acute distress. Head/Face: Normocephalic, atraumatic. Eyes: Pupils equal round and reactive to light, extra-ocular motions intact. Lids and lashes normal. Conjunctiva and sclera are non-icteric and not injected. Cornea within normal limits. Periorbital areas with no swelling, redness, or edema. ENT: Nares patent. No nasal discharge, no septal abnormalities noted. Tympanic membranes are normal and external auditory canals are clear. Oropharynx with no redness, swelling, or masses, exudates, or evidence of obstruction, uvula midline. Mucous membranes moist. Neck: Trachea midline, no thyromegaly or masses palpated, and no cervical lymphadenopathy. Supple, full range of motion without nuchal rigidity, or vertebral point tenderness. No Meningismus. Chest/axilla: Normal chest wall appearance and motion. Nontender with no deformity. No lesions are appreciated. Cardiovascular: Regular rate and rhythm with a normal S1 and S2. No gallops, murmurs, or rubs. No pulse deficits. Respiratory: Lungs have equal breath sounds bilaterally, clear to auscultation and percussion. No rales, rhonchi or wheezes noted. No increased work of breathing, no retractions or nasal flaring. Abdomen/GI: Soft, non-tender, with normal bowel sounds. No distension or tympany. No guarding or rebound. No evidence of tenderness throughout. Back: No spinal tenderness. No costovertebral tenderness. Full range of motion. Skin: Warm, dry with normal turgor. Normal color with no rashes, no lesions, and no evidence of cellulitis. MS/ Extremity: Pulses equal, no cyanosis. Neurovascular intact. Full, normal range of motion. 01:00 Neuro: Orientation: is normal, Mentation: is normal, Cranial nerves: CN II- XII are normal as tested, Cerebellar function: normal finger to nose testing, Motor: moves all fours, strength is normal, strength is 5/5 in all extremities. Vital Signs: 09/13 23:13 BP 151 / 91; Pulse 80; Resp 16; Temp 98.4; Pulse Ox 100% ; Weight 158.76 kg (R); Height ao 5 ft. 3 in. (160.02 cm); Pain 9/10; 09/14 03:01 BP 137 / 81; Pulse 65; Resp 15; Pulse Ox 96% on R/A; Pain 5/10; ao 04:20 BP 127 / 79; Pulse 68; Resp 18; Temp 98.6(O); Pulse Ox 100% on R/A; lk1 09/13 23:13 Body Mass Index 62.00 (158.76 kg, 160.02 cm) ao MDM: 09/13 23:23 Patient medically screened. pm1 09/14 04:14 Data reviewed: vital signs. Data interpreted: Pulse oximetry: on room air is 96 %. pm1 Interpretation: normal. Counseling: I had a detailed discussion with the patient and/or guardian regarding: the historical points, exam findings, and any diagnostic results supporting the discharge/admit diagnosis, radiology results, the need for outpatient follow up, to return to the emergency department if symptoms worsen or persist or if there are any questions or concerns that arise at home. 09/13 23:34 Order name: CT Head Brain wo Cont pm1 09/14 00:27 Order name: IV Saline Lock; Complete Time: 01:00 pm1 Administered Medications: 00:50 Drug: NS 0.9% 1000 ml Route: IV; Rate: 1000 ml; Site: left antecubital; lk1 01:45 Follow up: Response: No adverse reaction; IV Status: Completed infusion lk1 00:50 Drug: Reglan 10 mg Route: IVP; Site: left antecubital; lk1 01:15 Follow up: Response: No adverse reaction; Marked relief of symptoms lk1 00:51 Drug: Benadryl 25 mg Route: IVP; Site: left antecubital; lk1 01:15 Follow up: Response: No adverse reaction; Marked relief of symptoms lk1 Point of Care Testing: Blood Glucose: 04:30 Blood Glucose: 107 mg/dL; lk1 Ranges: Critical Glucose Levels:Adult <50 mg/dl or >400 mg/dl <40 mg/dl or >180 mg/dl Disposition: 06:35 Co-signature as Attending Physician, Fitz Farley MD. rn Disposition: 09/14/17 04:15 Discharged to Home. Impression: Headache. - Condition is Stable. - Discharge Instructions: Migraine Headache. - Medication Reconciliation Form, Thank You Letter form. - Follow up: Emergency Department; When: As needed; Reason: Worsening of condition. Follow up: Freddie Dee MD; When: 2 - 3 days; Reason: Recheck today's complaints, Continuance of care, Re-evaluation by your physician. - Problem is new. - Symptoms have improved. Signatures: Dispatcher [employer] Fitz Ghotra MD MD rn Kluge, Leah, RN RN lk1 Jeremi Gibbs RN RN ao Marinas, Patrick, NP RECORDS MANAGEMENT SPECIALIST pm1
--- NOTE | 2017-09-14 04:17 | ER ---
Nurse's Notes [facility] Name: Kelle Calderón Age: 42 yrs Sex: Female : 1975 Arrival Date: 09/13/2017 Time: 23:00 Bed 23 Private MD: Diagnosis: Headache Presentation: 09/13 23:07 Presenting complaint: Patient states: "I have a migraine headache and also my sugar is ao been high. I checked my sugar at 2230 and it was 211." Patient also C/O nausea and coughing. Transition of care: patient was not received from another setting of care. Onset of symptoms was September 13, 2017 at 09:00. Care prior to arrival: None. 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 LMP N/A - Hysterectomy ao Historical: - Allergies: 23:13 No Known Allergies; ao - Home Meds: 23:13 albuterol sulfate 2.5 mg /3 mL (0.083 %) Inhl nebu twice a day [Active]; amlodipine 10 ao mg tab 1 tab once daily [Active]; aspirin 81 mg Oral TbEC 1 tab once daily [Active]; atorvastatin 40 mg Oral tab 1 tab once daily [Active]; lisinopril 20 mg Oral tab 1 tab once daily [Active]; Linzess 145 mcg Oral cap 1 cap once daily [Active]; metformin 500 mg Oral tab 1 tab 2 times per day [Active]; gabapentin 100 mg Oral cap 3 caps 3 times per day [Active]; pantoprazole 40 mg Oral TbEC 1 tab once daily [Active]; venlafaxine 75 mg Oral tab 2 times per day [Active]; prednisone 5 mg Oral tab once daily [Active]; - PMHx: 23:13 Asthma; bells palsy; CVA; Depression; Diabetes - NIDDM; GERD; Hypertension; Irritable ao bowel syndrome; Kidney stones; Migraines; Sleep Apnea; Chronic pain; Lymphedema; - PSHx: 23:13 ; Knee surgery; Tubal ligation; Hysterectomy; Hernia repair; ao - Immunization history:: Adult Immunizations up to date. - Social history:: Smoking status: Patient/guardian denies using tobacco, Patient/guardian denies using alcohol, but has a distant history of alcohol abuse, street drugs, but used to use street drugs. Screenin/04 00:54 Abuse screen: Denies threats or abuse. Denies injuries from another. Nutritional kr2 screening: No deficits noted. Tuberculosis screening: No symptoms or risk factors identified. Fall Risk Ambulatory Aid- Crutches/Cane/Walker (15 pts). Assessment: 09/13 23:30 General: Appears in no apparent distress. comfortable, obese, well groomed, Behavior is kr2 calm, cooperative, appropriate for age. Pain: Complains of pain in Head Pain currently is 9 out of 10 on a pain scale. Quality of pain is described as aching, Pain began gradually, Is continuous, Alleviated by nothing. Neuro: Level of Consciousness is awake, alert, obeys commands, Oriented to person, place, time, situation, Appropriate for age Fish Grader are equal bilaterally Moves all extremities. Speech is normal, Facial symmetry appears normal, Pupils are PERRLA, Intact. Cardiovascular: Capillary refill < 3 seconds in bilateral fingers Patient's skin is warm and dry. Respiratory: Airway is patent Respiratory effort is even, unlabored, Respiratory pattern is regular, symmetrical, Breath sounds are diminished in left posterior lower lobe and right posterior lower lobe. Respiratory: Reports cough that is non-productive. GI: Abdomen is non-distended, obese. : No signs and/or symptoms were reported regarding the genitourinary system. Denies burning with urination. EENT: Oral mucosa is moist. Derm: Skin is intact, is healthy with good turgor, Skin is pink, warm \\T\\ dry. Musculoskeletal: Circulation, motion, and sensation intact. Range of motion: limited in left knee and right knee. 09/14 01:15 Reassessment: Patient appears in no apparent distress at this time. Patient and/or lk1 family updated on plan of care and expected duration. Pain level reassessed. Patient is alert, oriented x 3, equal unlabored respirations, skin warm/dry/pink. Patient sleeping. In no apparent distress. Patient denies pain at this time. Patient states feeling better. Patient states symptoms have improved. 03:01 General: Appears in no apparent distress. comfortable, obese, Behavior is appropriate ao for age. Pain: Complains of pain in Headach Pain currently is 5 out of 10 on a pain scale. Neuro: Level of Consciousness is awake, alert, obeys commands, Oriented to person, place, time, situation, Appropriate for age Moves all extremities. Speech is normal, Facial symmetry appears normal, Pupils are PERRLA, Intact. Cardiovascular: Capillary refill < 3 seconds Patient's skin is warm and dry. Respiratory: Airway is patent Respiratory effort is even, unlabored, Respiratory pattern is regular, symmetrical. GI: Abdomen is obese. : No signs and/or symptoms were reported regarding the genitourinary system. EENT: No signs and/or symptoms were reported regarding the EENT system. Derm: Skin is intact, Skin is pink, warm \\T\\ dry. Musculoskeletal: Circulation, motion, and sensation intact. Range of motion:. 04:10 Reassessment: Patient appears in no apparent distress at this time. Patient and/or lk1 family updated on plan of care and expected duration. Pain level reassessed. Patient is alert, oriented x 3, equal unlabored respirations, skin warm/dry/pink. Waiting on discharge orders. Vital Signs: 09/13 23:13 BP 151 / 91; Pulse 80; Resp 16; Temp 98.4; Pulse Ox 100% ; Weight 158.76 kg (R); Height ao 5 ft. 3 in. (160.02 cm); Pain 9/10; 09/14 03:01 BP 137 / 81; Pulse 65; Resp 15; Pulse Ox 96% on R/A; Pain 5/10; ao 04:20 BP 127 / 79; Pulse 68; Resp 18; Temp 98.6(O); Pulse Ox 100% on R/A; lk1 09/13 23:13 Body Mass Index 62.00 (158.76 kg, 160.02 cm) ao ED Course: 09/13 23:00 Patient arrived in ED. es 23:09 Triage completed. ao 23:17 Arm band placed on right wrist. Patient placed in waiting room, in a wheelchair, on ao pulse oximetry. 23:21 Benito Hsieh NP is PHCP. pm1 23:21 Fitz Farley MD is Attending Physician. pm1 23:30 Patient has correct armband on for positive identification. Bed in low position. Call kr2 light in reach. Side rails up X2. Pulse ox on. NIBP on. Door closed. Warm blanket given. Head of bed elevated. 09/14 00:05 CT Head Brain wo Cont In Process Unspecified. EDMS 00:37 Thu Bhakta, RN is Primary Nurse. lk1 00:39 CT completed. Patient tolerated procedure well. Patient moved to CT via stretcher. Patient moved back from CT. 00:53 Inserted saline lock: 20 gauge in left antecubital area, using aseptic technique. lk1 03:09 Report received from JOSEY Andino. ao 04:16 Freddie Dee MD is Referral Physician. pm1 04:41 No provider procedures requiring assistance completed. IV discontinued, intact, lk1 bleeding controlled, No redness/swelling at site. Pressure dressing applied. Administered Medications: 00:50 Drug: NS 0.9% 1000 ml Route: IV; Rate: 1000 ml; Site: left antecubital; lk1 01:45 Follow up: Response: No adverse reaction; IV Status: Completed infusion lk1 00:50 Drug: Reglan 10 mg Route: IVP; Site: left antecubital; lk1 01:15 Follow up: Response: No adverse reaction; Marked relief of symptoms lk1 00:51 Drug: Benadryl 25 mg Route: IVP; Site: left antecubital; lk1 01:15 Follow up: Response: No adverse reaction; Marked relief of symptoms lk1 Point of Care Testing: Blood Glucose: 04:30 Blood Glucose: 107 mg/dL; lk1 Ranges: Outcome: 04:15 Discharge ordered by . pm1 04:41 Discharged to home via wheelchair. lk1 04:41 Condition: stable 04:41 Discharge instructions given to patient, Instructed on discharge instructions, follow up and referral plans. Demonstrated understanding of instructions, follow-up care, medications, Follow up with Dr Dee 04:42 Patient left the ED. lk1 Signatures: Dispatcher [employer] EDHI Bhumika Sinha Ervin Thu Bhakta, JOSEY RN lk1 Jeremi Gibbs RN RN ao Marinas, Patrick, NP WALLPAPERER pm1 Rashida Sepulveda RN RN kr2 Corrections: (The following items were deleted from the chart) 04:42 03:20 BP 127 / 79; Pulse 68bpm; Resp 18bpm; Pulse Ox 100% RA; Temp 98.6F Oral; lk1 lk1
[2017-09-14 05:03] VITALS: BP 127/79; TEMP 98.6; O2SAT 100
--- NOTE | 2017-09-14 08:30 | RAD REPORT ---
EXAM DESCRIPTION: CT - Head Brain Wo Cont - 09/14/2017 3:48 am CLINICAL HISTORY: Migraine headache. COMPARISON: 05/02/2017 TECHNIQUE: All CT scans are performed using dose optimization technique as appropriate and may inclu de automated exposure control or mA/KV adjustment according to patient size. FINDINGS: No intracranial hemorrhage, hydrocephalus or extra-axial fluid collection.No areas of brai n edema or evidence of midline shift. Sphenoid sinus opacification is present involving the right sphenoid sinus. The paranasal sinuses and mastoids are clear. The calvarium is intact. IMPRESSION: No acute intracranial abnormality. Chronic right sphenoid sinusitis.
== END 2017-09-14 04:42 | disposition home or self-care (01) ==
LOC: ER 22:57
DX: R51 Headache (principal); I10 Essential (primary) hypertension; E11.9 Type 2 diabetes mellitus without complications; F32.9 Major depressive disorder, single episode, unspecified; J45.909 Unspecified asthma, uncomplicated; Z79.82 Long term (current) use of aspirin; Z86.73 Personal history of transient ischemic attack (TIA), and cerebral infarction without residual deficits
CPT/HCPCS: 70450; 82962; 96361; 96374; 96375; 99284; J2765; J7030

== ENCOUNTER 2017-10-14 11:04 | Day surgery (SDC) | payer OTHER ==
[2017-10-13 12:08] LABS: Absolute Lymphocytes (CBC) 1.7 K/uL (0.7-4.9); Absolute Monocytes 0.3 K/uL (0.1-1.3); Absolute Neutrophil 5.3 K/uL (1.8-8.0); Basophils % 0.6 % (0-1.3); Eosinophils % 1.6 % (0-4.4); Hematocrit 36.7 % (36.0-45.0); Lymphocytes % 23.1 % (15.3-44.8); MCV 86.8 fL (80-100); Monocytes % 4.4 % (3.3-12.3); RBC Red Blood Cell Count 4.23 M/uL (3.86-4.86)
[2017-10-13 12:16] LABS: Bicarbonate 27 mEq/L (21-31); Glucose Level 104 mg/dL (65-120); Potassium 3.9 mEq/L (3.6-5.0); Sodium Level 144 mEq/L (135-145)
[2017-10-13 12:17] LABS: BUN Blood Urea Nitrogen 11 mg/dL (6-20)
--- NOTE | 2017-10-13 12:40 | RAD REPORT ---
EXAM DESCRIPTION: RAD - Chest Pa And Lat (2 Views) - 10/13/2017 12:32 pm CLINICAL HISTORY: Abdominal pain, hypertension, diabetes. COMPARISON: 07/22/2017 FINDINGS: The lungs are clear. The heart is normal in size. No displaced fractures. IMPRESSION: No acute or concerning finding suspected.
--- NOTE | 2017-10-13 16:20 | EKG ---
Test Date: 2017-10-13 Test Time: 11:42:41 Reptile Keeper: LASHAE MEASUREMENT RESULTS: Intervals: Rate: 73 IA: 122 QRSD: 90 QT: 404 QTc: 445 [place]: P: 37 IA: 122 QRS: 56 T: 45 INTERPRETIVE STATEMENTS: Normal sinus rhythm Normal ECG Compared to ECG 05/02/2017 16:05:44 No significant changes Electronically Signed On 10-13-17 16:19:56 CDT by Clinton Schulz
[2017-10-14] MEDS ORDERED: NA CHLORIDE 0.9% 1,000 ML ONE (11:07)
--- OUTSIDE RECORDS SUMMARY | 2017-10-14 11:07 | XMS REPORT ---
:1975 [facility] Address [address] [place] [address] Care Team Providers Name Role Phone KAYE MICKEY Unavailable Unavailable MAYRA CHEUNG Unavailable Unavailable Problems This patient has no known problems. Allergies, Adverse Reactions, Alerts This patient has no known allergies or adverse reactions. Medications This patient has no known medications. Results Test Description Test Time Test Comments Text Results Atomic Results Result Comments POCT-GLUCOSE METER 2017-05-04 11:34:00 Test Item Value Reference Range Comments POC-GLUCOSE METER (BEAKER) (test 84 mg/dL 70-110 TESTED AT [facility] [address] [facility] qprd=6149) [facility] [address] [id number] 08:58:00 Test Item Value Reference Range Comments PHOSPHORUS (BEAKER) (test zeic=373) 4.4 mg/dL 2.3-4.7 [id number] 08:58:00 Test Item Value Reference Range Comments MAGNESIUM (BEAKER) (test rbbc=217) 2.3 mg/dL 1.6-2.6 BASIC METABOLIC [id number] 08:58:00 Test Item Value Reference Range Comments SODIUM (BEAKER) (test 142 meq/L 136-145 nvyl=325) POTASSIUM (BEAKER) (test 3.9 meq/L 3.5-5.1 cgwg=942) CHLORIDE (BEAKER) (test 108 meq/L 98-107 hpqv=484) CO2 (BEAKER) (test 26 meq/L 22-29 wtgk=853) BLOOD UREA NITROGEN 16 mg/dL 7-21 (BEAKER) (test msuo=809) CREATININE (BEAKER) (test 0.69 mg/dL 0.57-1.25 vcqk=897) GLUCOSE RANDOM (BEAKER) 86 mg/dL 70-105 (test upsx=693) CALCIUM (BEAKER) (test 8.6 mg/dL 8.4-10.2 fgqp=712) EGFR (BEAKER) (test 94 mL/min/1.73 sq m ESTIMATED GFR IS NOT bkxu=7752) ACCURATE CREATININE CLEARANCE IN PREDICTING GLOMERULAR FILTRATION RATE. ESTIMATED GFR IS NOT APPLICABLE FOR DIALYSIS PATIENTS. HEPATIC FUNCTION [id number] 08:58:00 Test Item Value Reference Range Comments TOTAL PROTEIN (BEAKER) (test iufp=064) 6.8 gm/dL 6.0-8.3 ALBUMIN (BEAKER) (test rddz=7265) 3.6 g/dL 3.5-5.0 BILIRUBIN TOTAL (BEAKER) (test kpfz=308) 0.4 mg/dL 0.2-1.2 BILIRUBIN DIRECT (BEAKER) (test tdzp=486) 0.2 mg/dL 0.1-0.5 ALKALINE PHOSPHATASE (BEAKER) (test wwgj=018) 59 U/L 40-150 AST (SGOT) (BEAKER) (test bysg=937) 24 U/L 5-34 ALT (SGPT) (BEAKER) (test kawg=311) 17 U/L 6-55 POCT-GLUCOSE [id number] 08:20:00 Test Item Value Reference Range Comments POC-GLUCOSE METER (BEAKER) 143 mg/dL 70-110 TESTED AT [address] (test htwi=1629) [facility] [address] PROTHROMBIN [id number] 05:55:00 Test Item Value Reference Range Comments PROTIME (BEAKER) (test ybvk=321) 13.4 seconds 11.7-14.7 INR (BEAKER) (test ybhq=945) 1.0 <=5.9 RECOMMENDED COUMADIN/WARFARIN INR THERAPY RANGESSTANDARD DOSE: 2.0 - 3.0 Includes: PROPHYLAXIS forvenous thrombosis, systemic embolization; TREATMENT for venous thrombosis and/or pulmonary embolus.HIGH RISK: Target INR is 2.5-3.5 for patients with mechanical heart valves.POCT-GLUCOSE [id number] 20:32:00 Test Item Value Reference Range Comments POC-GLUCOSE METER (BEAKER) 90 mg/dL 70-110 TESTED AT [address] (test ubbb=2985) [facility] [address] POCT-GLUCOSE [id number] 16:47:00 Test Item Value Reference Range Comments POC-GLUCOSE METER (BEAKER) 79 mg/dL 70-110 TESTED AT [facility] [address] [facility] (test ztio=7031) [facility] [address] POCT-GLUCOSE [id number] 07:47:00 Test Item Value Reference Range Comments POC-GLUCOSE METER (BEAKER) 97 mg/dL 70-110 TESTED AT [place] [id number] [facility] (test dqrv=7384) [place] [id number] TROPONIN [id number] 07:02:00 Test Item Value Reference Range Comments TROPONIN I (BEAKER) (test tqgl=298) < ng/mL 0.00-0.03 Troponin I (TnI) levels [...] failure, acidosis, acute neurological disease, and persistent tachyarrhythmia.[id number] 07:00:00 Test Item Value Reference Range Comments PHOSPHORUS (BEAKER) (test zapg=940) 5.0 mg/dL 2.3-4.7 [id number] 07:00:00 Test Item Value Reference Range Comments MAGNESIUM (BEAKER) (test gcnr=136) 1.9 mg/dL 1.6-2.6 BASIC METABOLIC [id number] 07:00:00 Test Item Value Reference Range Comments SODIUM (BEAKER) (test 141 meq/L 136-145 qvdq=010) POTASSIUM (BEAKER) (test 4.0 meq/L 3.5-5.1 dwsv=121) CHLORIDE (BEAKER) (test 106 meq/L 98-107 rkrd=488) CO2 (BEAKER) (test 25 meq/L 22-29 oiep=921) BLOOD UREA NITROGEN 14 mg/dL 7-21 (BEAKER) (test wsdz=644) CREATININE (BEAKER) (test 0.72 mg/dL 0.57-1.25 qorh=150) GLUCOSE RANDOM (BEAKER) 109 mg/dL 70-105 (test ljrk=341) CALCIUM (BEAKER) (test 9.5 mg/dL 8.4-10.2 zzwv=710) EGFR (BEAKER) (test 89 mL/min/1.73 sq m ESTIMATED GFR IS NOT wrby=8293) ACCURATE CREATININE CLEARANCE IN PREDICTING GLOMERULAR FILTRATION RATE. ESTIMATED GFR IS NOT APPLICABLE FOR DIALYSIS PATIENTS. HEPATIC FUNCTION [id number] 07:00:00 Test Item Value Reference Range Comments TOTAL PROTEIN (BEAKER) (test fulu=846) 7.7 gm/dL 6.0-8.3 ALBUMIN (BEAKER) (test unpn=0477) 4.0 g/dL 3.5-5.0 BILIRUBIN TOTAL (BEAKER) (test pird=040) 0.5 mg/dL 0.2-1.2 BILIRUBIN DIRECT (BEAKER) (test rtwe=557) 0.2 mg/dL 0.1-0.5 ALKALINE PHOSPHATASE (BEAKER) (test fixw=931) 69 U/L 40-150 AST (SGOT) (BEAKER) (test bdwf=363) 34 U/L 5-34 ALT (SGPT) (BEAKER) (test zzva=592) 21 U/L 6-55 PROTHROMBIN [id number] 06:31:00 Test Item Value Reference Range Comments PROTIME (BEAKER) (test zkwc=245) 14.0 seconds 11.7-14.7 INR (BEAKER) (test hsmt=142) 1.1 <=5.9 RECOMMENDED COUMADIN/WARFARIN INR THERAPY RANGESSTANDARD DOSE: 2.0 - 3.0 Includes: PROPHYLAXIS forvenous thrombosis, systemic embolization; TREATMENT for venous thrombosis and/or pulmonary embolus.HIGH RISK: Target INR is 2.5-3.5 for patients with mechanical heart valves.CBC W/PLT COUNT & AUTO [id number] 06:28:00 Test Item Value Reference Range Comments WHITE BLOOD CELL COUNT (BEAKER) (test lyim=002) 8.9 K/ L 3.5-10.5 RED BLOOD CELL COUNT (BEAKER) (test xnti=834) 4.55 M/ L 3.93-5.22 HEMOGLOBIN (BEAKER) (test rcex=155) 13.0 GM/DL 11.2-15.7 HEMATOCRIT (BEAKER) (test uqyw=871) 42.0 % 34.1-44.9 MEAN CORPUSCULAR VOLUME (BEAKER) (test bknz=868) 92.3 fL 79.4-94.8 MEAN CORPUSCULAR HEMOGLOBIN (BEAKER) (test 28.6 pg 25.6-32.2 qotv=523) MEAN CORPUSCULAR HEMOGLOBIN CONC (BEAKER) (test 31.0 GM/DL 32.2-35.5 yvll=536) RED CELL DISTRIBUTION WIDTH (BEAKER) (test 13.9 % 11.7-14.4 yubi=461) PLATELET COUNT (BEAKER) (test njcj=804) 202 K/CU MM 150-450 MEAN PLATELET VOLUME (BEAKER) (test lywr=860) 12.6 fL 9.4-12.3 NUCLEATED RED BLOOD CELLS (BEAKER) (test 0 /100 WBC 0-0 ipgu=209) NEUTROPHILS RELATIVE PERCENT (BEAKER) (test 70 % exdi=064) LYMPHOCYTES RELATIVE PERCENT (BEAKER) (test 23 % wsrt=049) MONOCYTES RELATIVE PERCENT (BEAKER) (test 4 % xxrk=771) EOSINOPHILS RELATIVE PERCENT (BEAKER) (test 3 % szdo=067) BASOPHILS RELATIVE PERCENT (BEAKER) (test 0 % pejy=945) NEUTROPHILS ABSOLUTE COUNT (BEAKER) (test 6.19 K/ L 1.56-6.13 rhzc=065) LYMPHOCYTES ABSOLUTE COUNT (BEAKER) (test 2.03 K/ L 1.18-3.74 lxyz=661) MONOCYTES ABSOLUTE COUNT (BEAKER) (test 0.37 K/ L 0.24-0.36 fwly=911) EOSINOPHILS ABSOLUTE COUNT (BEAKER) (test 0.24 K/ L 0.04-0.36 avav=002) BASOPHILS ABSOLUTE COUNT (BEAKER) (test 0.02 K/ L 0.01-0.08 rmpf=226) IMMATURE GRANULOCYTES-RELATIVE PERCENT (BEAKER) 0 % 0-1 (test ilvy=1904) CREATINE KINASE (CK), TOTAL AND [id number] 01:39:00 Test Item Value Reference Range Comments CREATINE KINASE TOTAL (BEAKER) (test isfp=491) 55 U/L 29-200 CREATINE KINASE-MB (BEAKER) (test ypjg=093) 1.1 ng/mL 0.0-6.6 CREATINE KINASE-MB INDEX (BEAKER) (test kqsu=729) 2.0 % CK-MB Reference Range:<6.7 Normal6.7-10.0 Borderline>10.0 AbnormalTROPONIN [id number] 01:39:00 Test Item Value Reference Range Comments TROPONIN I (BEAKER) (test ptwr=484) < ng/mL 0.00-0.03 Troponin I (TnI) levels [...] acidosis, acute neurological disease, and persistent tachyarrhythmia.POCT-GLUCOSE [id number] 12:39:00 Test Item Value Reference Range Comments POC-GLUCOSE METER (BEAKER) 80 mg/dL 70-110 TESTED AT [address] (test hctt=5235) [place] [address] POCT-GLUCOSE [id number] 07:07:00 Test Item Value Reference Range Comments POC-GLUCOSE METER (BEAKER) 100 mg/dL 70-110 TESTED AT [address] (test nygy=1122) [place] [id number] POCT-GLUCOSE [id number] 21:12:00 Test Item Value Reference Range Comments POC-GLUCOSE METER (BEAKER) 138 mg/dL 70-110 TESTED AT [address] (test mlqj=3702) [place] [address] POCT-GLUCOSE [id number] 12:04:00 Test Item Value Reference Range Comments POC-GLUCOSE METER (BEAKER) 113 mg/dL 70-110 TESTED AT [address] (test tits=6275) [place] [address] BASIC METABOLIC [id number] 04:26:00 Test Item Value Reference Range Comments SODIUM (BEAKER) (test 141 meq/L 136-145 yrhg=918) POTASSIUM (BEAKER) (test 4.2 meq/L 3.5-5.1 Specimen moderately rama=268) hemolyzed CHLORIDE (BEAKER) (test 107 meq/L 98-107 ntis=722) CO2 (BEAKER) (test 25 meq/L 22-29 dbgd=743) BLOOD UREA NITROGEN 13 mg/dL 7-21 (BEAKER) (test vnpd=482) CREATININE (BEAKER) (test 0.61 mg/dL 0.57-1.25 Specimen moderately sign=991) hemolyzed GLUCOSE RANDOM (BEAKER) 93 mg/dL 70-105 (test gfen=792) CALCIUM (BEAKER) (test 9.0 mg/dL 8.4-10.2 bvyp=590) EGFR (BEAKER) (test 108 mL/min/1.73 sq m ESTIMATED GFR IS NOT mxra=7788) ACCURATE CREATININE CLEARANCE IN PREDICTING GLOMERULAR FILTRATION RATE. ESTIMATED GFR IS NOT APPLICABLE FOR DIALYSIS PATIENTS. CBC W/PLT COUNT & AUTO [id number] 04:02:00 Test Item Value Reference Range Comments WHITE BLOOD CELL COUNT (BEAKER) (test qhow=924) 8.4 K/ L 3.5-10.5 RED BLOOD CELL COUNT (BEAKER) (test gegt=713) 4.15 M/ L 3.93-5.22 HEMOGLOBIN (BEAKER) (test xqos=706) 11.8 GM/DL 11.2-15.7 HEMATOCRIT (BEAKER) (test mlwd=426) 37.9 % 34.1-44.9 MEAN CORPUSCULAR VOLUME (BEAKER) (test bvxv=780) 91.3 fL 79.4-94.8 MEAN CORPUSCULAR HEMOGLOBIN (BEAKER) (test 28.4 pg 25.6-32.2 iemd=584) MEAN CORPUSCULAR HEMOGLOBIN CONC (BEAKER) (test 31.1 GM/DL 32.2-35.5 isgn=609) RED CELL DISTRIBUTION WIDTH (BEAKER) (test 14.1 % 11.7-14.4 ksrn=460) PLATELET COUNT (BEAKER) (test bntg=799) 200 K/CU MM 150-450 MEAN PLATELET VOLUME (BEAKER) (test purk=691) 11.9 fL 9.4-12.3 NUCLEATED RED BLOOD CELLS (BEAKER) (test 0 /100 WBC 0-0 lwzf=608) NEUTROPHILS RELATIVE PERCENT (BEAKER) (test 73 % uxft=485) LYMPHOCYTES RELATIVE PERCENT (BEAKER) (test 19 % sgvq=173) MONOCYTES RELATIVE PERCENT (BEAKER) (test 5 % ppvo=303) EOSINOPHILS RELATIVE PERCENT (BEAKER) (test 3 % htvx=661) BASOPHILS RELATIVE PERCENT (BEAKER) (test 0 % hgga=331) NEUTROPHILS ABSOLUTE COUNT (BEAKER) (test 6.08 K/ L 1.56-6.13 zcfz=773) LYMPHOCYTES ABSOLUTE COUNT (BEAKER) (test 1.62 K/ L 1.18-3.74 jodj=963) MONOCYTES ABSOLUTE COUNT (BEAKER) (test 0.39 K/ L 0.24-0.36 idcq=795) EOSINOPHILS ABSOLUTE COUNT (BEAKER) (test 0.24 K/ L 0.04-0.36 vvyd=874) BASOPHILS ABSOLUTE COUNT (BEAKER) (test 0.01 K/ L 0.01-0.08 zhzm=975) IMMATURE GRANULOCYTES-RELATIVE PERCENT (BEAKER) 1 % 0-1 (test ywej=7817) CLOSTRIDIUM DIFFICILE TOXIN [id number] 13:44:00 Test Item Value Reference Range Comments CLOSTRIDIUM DIFFICILE TOXIN, PCR (BEAKER) (test Not Detected Not Detected vwey=7846) This qualitative real-time polymerase chain reaction assay [...] a positive result is not recommended.CT, CTANGIO [id number] 06:59:00Addendum BeginsREPORT STATUS:A Three-dimensional post intravenous contrast images of the cerebral vasculature were created on a free standing workstation for better visualization of cerebral vascular anatomy and pathology. Signed: Skip Gardner MDReport Verified Date/Time: 04/12/2017 06:59:20 Reading Location: [facility] C013X Ortho Consult Reading RoomAddendum EndsFINAL REPORT [...] 04/07/2017 at 12:50 AM. Signed: Skip Gardner Verified Date/Time: 04/07/2017 01:12:44 Reading Location: [facility] B1 C013X Ortho Consult Reading Room BASIC METABOLIC [id number] 05:37:00 Test Item Value Reference Range Comments SODIUM (BEAKER) (test 142 meq/L 136-145 tbkx=808) POTASSIUM (BEAKER) (test 3.7 meq/L 3.5-5.1 Specimen slightly agjf=461) hemolyzed CHLORIDE (BEAKER) (test 105 meq/L 98-107 qysh=267) CO2 (BEAKER) (test 27 meq/L 22-29 wwkm=247) BLOOD UREA NITROGEN 11 mg/dL 7-21 (BEAKER) (test kvoj=348) CREATININE (BEAKER) (test 0.66 mg/dL 0.57-1.25 Specimen slightly zrga=248) hemolyzed GLUCOSE RANDOM (BEAKER) 97 mg/dL 70-105 (test zrko=390) CALCIUM (BEAKER) (test 9.2 mg/dL 8.4-10.2 boxd=309) EGFR (BEAKER) (test 99 mL/min/1.73 sq m ESTIMATED GFR IS NOT tyvt=8895) ACCURATE CREATININE CLEARANCE IN PREDICTING GLOMERULAR FILTRATION RATE. ESTIMATED GFR IS NOT APPLICABLE FOR DIALYSIS PATIENTS. CBC (HEMOGRAM ONLY)2017-04-12 05:17:00 Test Item Value Reference Range Comments WHITE BLOOD CELL COUNT (BEAKER) (test tfkz=939) 7.7 K/ L 3.5-10.5 RED BLOOD CELL COUNT (BEAKER) (test mnqt=789) 4.17 M/ L 3.93-5.22 HEMOGLOBIN (BEAKER) (test tamc=962) 12.0 GM/DL 11.2-15.7 HEMATOCRIT (BEAKER) (test eroc=795) 38.0 % 34.1-44.9 MEAN CORPUSCULAR VOLUME (BEAKER) (test jamu=954) 91.1 fL 79.4-94.8 MEAN CORPUSCULAR HEMOGLOBIN (BEAKER) (test 28.8 pg 25.6-32.2 eyet=014) MEAN CORPUSCULAR HEMOGLOBIN CONC (BEAKER) (test 31.6 GM/DL 32.2-35.5 vhvf=979) RED CELL DISTRIBUTION WIDTH (BEAKER) (test 14.0 % 11.7-14.4 iyql=395) PLATELET COUNT (BEAKER) (test xeiy=117) 219 K/CU MM 150-450 MEAN PLATELET VOLUME (BEAKER) (test yunk=049) 11.6 fL 9.4-12.3 NUCLEATED RED BLOOD CELLS (BEAKER) (test 0 /100 WBC 0-0 vvkn=989) POCT-GLUCOSE [id number] 17:55:00 Test Item Value Reference Range Comments POC-GLUCOSE METER (BEAKER) 111 mg/dL 70-110 TESTED AT [address] (test iawk=0379) [place] [address] POCT-GLUCOSE [id number] 12:02:00 Test Item Value Reference Range Comments POC-GLUCOSE METER (BEAKER) 100 mg/dL 70-110 TESTED AT [address] (test afbd=5191) [place] [address] POCT-GLUCOSE [id number] 07:50:00 Test Item Value Reference Range Comments POC-GLUCOSE METER (BEAKER) 110 mg/dL 70-110 TESTED AT [address] (test itcd=3524) [place] [address] POCT-GLUCOSE [id number] 16:56:00 Test Item Value Reference Range Comments POC-GLUCOSE METER (BEAKER) 104 mg/dL 70-110 TESTED AT [address] (test qzns=5605) [place] [id number] POCT-GLUCOSE [id number] 12:22:00 Test Item Value Reference Range Comments POC-GLUCOSE METER (BEAKER) 84 mg/dL 70-110 TESTED AT [address] (test mhbo=5078) [place] [address] HEMOGLOBIN [id number] 08:46:00 Test Item Value Reference Range Comments HEMOGLOBIN A1C (BEAKER) (test ftoo=007) 6.2 % 4.3-6.1 BASIC METABOLIC [id number] 06:42:00 Test Item Value Reference Range Comments SODIUM (BEAKER) (test 142 meq/L 136-145 hmqj=884) POTASSIUM (BEAKER) (test 4.1 meq/L 3.5-5.1 Specimen slightly yaff=106) hemolyzed CHLORIDE (BEAKER) (test 104 meq/L 98-107 fovd=990) CO2 (BEAKER) (test 28 meq/L 22-29 pfhn=022) BLOOD UREA NITROGEN 9 mg/dL 7-21 (BEAKER) (test xjma=562) CREATININE (BEAKER) (test 0.60 mg/dL 0.57-1.25 Specimen slightly ueev=307) hemolyzed GLUCOSE RANDOM (BEAKER) 96 mg/dL 70-105 (test wymq=625) CALCIUM (BEAKER) (test 9.1 mg/dL 8.4-10.2 qdfr=351) EGFR (BEAKER) (test 110 mL/min/1.73 sq m ESTIMATED GFR IS NOT vrku=0540) ACCURATE CREATININE CLEARANCE IN PREDICTING GLOMERULAR FILTRATION RATE. ESTIMATED GFR IS NOT APPLICABLE FOR DIALYSIS PATIENTS. CBC W/PLT COUNT & AUTO [id number] 06:19:00 Test Item Value Reference Range Comments WHITE BLOOD CELL COUNT (BEAKER) (test ryty=337) 7.5 K/ L 3.5-10.5 RED BLOOD CELL COUNT (BEAKER) (test fjed=796) 4.12 M/ L 3.93-5.22 HEMOGLOBIN (BEAKER) (test zpgy=116) 11.8 GM/DL 11.2-15.7 HEMATOCRIT (BEAKER) (test svre=505) 37.6 % 34.1-44.9 MEAN CORPUSCULAR VOLUME (BEAKER) (test voqw=665) 91.3 fL 79.4-94.8 MEAN CORPUSCULAR HEMOGLOBIN (BEAKER) (test 28.6 pg 25.6-32.2 vbeu=249) MEAN CORPUSCULAR HEMOGLOBIN CONC (BEAKER) (test 31.4 GM/DL 32.2-35.5 irbo=898) RED CELL DISTRIBUTION WIDTH (BEAKER) (test 13.8 % 11.7-14.4 gaoy=066) PLATELET COUNT (BEAKER) (test rnrf=651) 192 K/CU MM 150-450 MEAN PLATELET VOLUME (BEAKER) (test wzaq=658) 11.6 fL 9.4-12.3 NUCLEATED RED BLOOD CELLS (BEAKER) (test 0 /100 WBC 0-0 flhb=273) NEUTROPHILS RELATIVE PERCENT (BEAKER) (test 77 % rddi=766) LYMPHOCYTES RELATIVE PERCENT (BEAKER) (test 16 % uyyp=691) MONOCYTES RELATIVE PERCENT (BEAKER) (test 4 % gyfg=315) EOSINOPHILS RELATIVE PERCENT (BEAKER) (test 2 % bhqr=691) BASOPHILS RELATIVE PERCENT (BEAKER) (test 0 % rwar=972) NEUTROPHILS ABSOLUTE COUNT (BEAKER) (test 5.82 K/ L 1.56-6.13 urjc=475) LYMPHOCYTES ABSOLUTE COUNT (BEAKER) (test 1.21 K/ L 1.18-3.74 vfke=215) MONOCYTES ABSOLUTE COUNT (BEAKER) (test 0.31 K/ L 0.24-0.36 zfks=629) EOSINOPHILS ABSOLUTE COUNT (BEAKER) (test 0.15 K/ L 0.04-0.36 icnz=306) BASOPHILS ABSOLUTE COUNT (BEAKER) (test 0.01 K/ L 0.01-0.08 xosb=257) IMMATURE GRANULOCYTES-RELATIVE PERCENT (BEAKER) 1 % 0-1 (test notr=9261) POCT-GLUCOSE [id number] 12:07:00 Test Item Value Reference Range Comments POC-GLUCOSE METER (BEAKER) 110 mg/dL 70-110 TESTED AT [address] (test sqbf=1097) [facility] [address] [address], BRAIN, WITHOUT [id number] 06:55:00FINAL REPORT Clinical history : Decreased alertnessComparison [...] Verified Date/Time: 04/09/2017 06 :55:25 Reading Location: [address] Reading Room BASIC METABOLIC [id number] 05:57:00 Test Item Value Reference Range Comments SODIUM (BEAKER) (test 140 meq/L 136-145 hsqw=562) POTASSIUM (BEAKER) (test 3.7 meq/L 3.5-5.1 gefb=164) CHLORIDE (BEAKER) (test 103 meq/L 98-107 sjlm=376) CO2 (BEAKER) (test 29 meq/L 22-29 jfpg=804) BLOOD UREA NITROGEN 7 mg/dL 7-21 (BEAKER) (test ixgo=404) CREATININE (BEAKER) (test 0.56 mg/dL 0.57-1.25 uamm=548) GLUCOSE RANDOM (BEAKER) 110 mg/dL 70-105 (test tcgy=083) CALCIUM (BEAKER) (test 8.7 mg/dL 8.4-10.2 atru=696) EGFR (BEAKER) (test 119 mL/min/1.73 sq m ESTIMATED GFR IS NOT olqs=1992) ACCURATE CREATININE CLEARANCE IN PREDICTING GLOMERULAR FILTRATION RATE. ESTIMATED GFR IS NOT APPLICABLE FOR DIALYSIS PATIENTS. CBC W/PLT COUNT & AUTO [id number] 04:54:00 Test Item Value Reference Range Comments WHITE BLOOD CELL COUNT (BEAKER) (test erge=534) 8.1 K/ L 3.5-10.5 RED BLOOD CELL COUNT (BEAKER) (test juku=163) 4.07 M/ L 3.93-5.22 HEMOGLOBIN (BEAKER) (test bzfz=626) 11.6 GM/DL 11.2-15.7 HEMATOCRIT (BEAKER) (test gthp=866) 37.3 % 34.1-44.9 MEAN CORPUSCULAR VOLUME (BEAKER) (test hehq=336) 91.6 fL 79.4-94.8 MEAN CORPUSCULAR HEMOGLOBIN (BEAKER) (test 28.5 pg 25.6-32.2 bytl=055) MEAN CORPUSCULAR HEMOGLOBIN CONC (BEAKER) (test 31.1 GM/DL 32.2-35.5 tbzf=494) RED CELL DISTRIBUTION WIDTH (BEAKER) (test 13.6 % 11.7-14.4 sshy=224) PLATELET COUNT (BEAKER) (test mosa=928) 171 K/CU MM 150-450 MEAN PLATELET VOLUME (BEAKER) (test fwor=715) 11.3 fL 9.4-12.3 NUCLEATED RED BLOOD CELLS (BEAKER) (test 0 /100 WBC 0-0 rsvy=615) NEUTROPHILS RELATIVE PERCENT (BEAKER) (test 77 % wrwg=279) LYMPHOCYTES RELATIVE PERCENT (BEAKER) (test 16 % gttm=663) MONOCYTES RELATIVE PERCENT (BEAKER) (test 5 % cqiy=864) EOSINOPHILS RELATIVE PERCENT (BEAKER) (test 2 % puem=949) BASOPHILS RELATIVE PERCENT (BEAKER) (test 0 % wsjj=815) NEUTROPHILS ABSOLUTE COUNT (BEAKER) (test 6.20 K/ L 1.56-6.13 rzfv=527) LYMPHOCYTES ABSOLUTE COUNT (BEAKER) (test 1.30 K/ L 1.18-3.74 vhda=334) MONOCYTES ABSOLUTE COUNT (BEAKER) (test 0.38 K/ L 0.24-0.36 rhqt=719) EOSINOPHILS ABSOLUTE COUNT (BEAKER) (test 0.14 K/ L 0.04-0.36 sixz=508) BASOPHILS ABSOLUTE COUNT (BEAKER) (test 0.01 K/ L 0.01-0.08 pcac=387) IMMATURE GRANULOCYTES-RELATIVE PERCENT (BEAKER) 1 % 0-1 (test mkdy=9731) POCT-GLUCOSE [id number] 01:34:00 Test Item Value Reference Range Comments POC-GLUCOSE METER (BEAKER) 92 mg/dL 70-110 TESTED AT [address] (test ncdx=1980) [place] [address] POCT-GLUCOSE [id number] 19:20:00 Test Item Value Reference Range Comments POC-GLUCOSE METER (BEAKER) 85 mg/dL 70-110 TESTED AT [address] (test qrau=8616) [place] [address] [address], BRAIN, WITHOUT [id number] 15:47:00FINAL REPORT CT head without contrast. Comparisons: [...] [place] Verified Date/Time: 04/08/2017 15:47:42 POCT- GLUCOSE [id number] 12:44:00 Test Item Value Reference Range Comments POC-GLUCOSE METER (BEAKER) 94 mg/dL 70-110 TESTED AT [facility] [address] [facility] (test bvxp=2477) [facility] [address] BASIC METABOLIC [id number] 05:05:00 Test Item Value Reference Range Comments SODIUM (BEAKER) (test 142 meq/L 136-145 zcvb=737) POTASSIUM (BEAKER) (test 4.0 meq/L 3.5-5.1 txlu=452) CHLORIDE (BEAKER) (test 107 meq/L 98-107 emzx=612) CO2 (BEAKER) (test 27 meq/L 22-29 jnws=409) BLOOD UREA NITROGEN 9 mg/dL 7-21 (BEAKER) (test rziz=471) CREATININE (BEAKER) (test 0.59 mg/dL 0.57-1.25 uufm=647) GLUCOSE RANDOM (BEAKER) 105 mg/dL 70-105 (test rblr=105) CALCIUM (BEAKER) (test 8.7 mg/dL 8.4-10.2 deev=768) EGFR (BEAKER) (test 112 mL/min/1.73 sq m ESTIMATED GFR IS NOT mtgx=7813) ACCURATE CREATININE CLEARANCE IN PREDICTING GLOMERULAR FILTRATION RATE. ESTIMATED GFR IS NOT APPLICABLE FOR DIALYSIS PATIENTS. CBC W/PLT COUNT & AUTO [id number] 04:28:00 Test Item Value Reference Range Comments WHITE BLOOD CELL COUNT (BEAKER) (test wmpx=622) 7.1 K/ L 3.5-10.5 RED BLOOD CELL COUNT (BEAKER) (test eomp=528) 3.90 M/ L 3.93-5.22 HEMOGLOBIN (BEAKER) (test xllm=020) 11.0 GM/DL 11.2-15.7 HEMATOCRIT (BEAKER) (test cxtx=522) 36.6 % 34.1-44.9 MEAN CORPUSCULAR VOLUME (BEAKER) (test hzwe=161) 93.8 fL 79.4-94.8 MEAN CORPUSCULAR HEMOGLOBIN (BEAKER) (test 28.2 pg 25.6-32.2 ffru=490) MEAN CORPUSCULAR HEMOGLOBIN CONC (BEAKER) (test 30.1 GM/DL 32.2-35.5 cudv=454) RED CELL DISTRIBUTION WIDTH (BEAKER) (test 14.2 % 11.7-14.4 egmq=029) PLATELET COUNT (BEAKER) (test slxa=830) 187 K/CU MM 150-450 MEAN PLATELET VOLUME (BEAKER) (test bwjp=413) 10.9 fL 9.4-12.3 NUCLEATED RED BLOOD CELLS (BEAKER) (test 0 /100 WBC 0-0 hvmz=883) NEUTROPHILS RELATIVE PERCENT (BEAKER) (test 73 % ghcs=915) LYMPHOCYTES RELATIVE PERCENT (BEAKER) (test 19 % ohrw=867) MONOCYTES RELATIVE PERCENT (BEAKER) (test 5 % txuo=068) EOSINOPHILS RELATIVE PERCENT (BEAKER) (test 2 % sfcb=222) BASOPHILS RELATIVE PERCENT (BEAKER) (test 0 % vjoa=066) NEUTROPHILS ABSOLUTE COUNT (BEAKER) (test 5.22 K/ L 1.56-6.13 hvzc=340) LYMPHOCYTES ABSOLUTE COUNT (BEAKER) (test 1.37 K/ L 1.18-3.74 bbrp=957) MONOCYTES ABSOLUTE COUNT (BEAKER) (test 0.34 K/ L 0.24-0.36 sehv=088) EOSINOPHILS ABSOLUTE COUNT (BEAKER) (test 0.13 K/ L 0.04-0.36 vhxg=932) BASOPHILS ABSOLUTE COUNT (BEAKER) (test 0.01 K/ L 0.01-0.08 bpnw=643) IMMATURE GRANULOCYTES-RELATIVE PERCENT (BEAKER) 1 % 0-1 (test pzop=9551) POCT-GLUCOSE [id number] 17:32:00 Test Item Value Reference Range Comments POC-GLUCOSE METER (BEAKER) 90 mg/dL 70-110 TESTED AT [facility] [address] [facility] (test hkvv=9811) [facility] [address] POCT-GLUCOSE [id number] 12:02:00 Test Item Value Reference Range Comments POC-GLUCOSE METER (BEAKER) 91 mg/dL 70-110 TESTED AT [facility] [address] (test hbwg=6578) [facility] [address] EEG AWAKE AND [id number] 11:38:00Reason for exam:->R/O subclinical seizuresDATE OF [id number] OF REPORT: [id number]: [id number]: 17- 1801Start time: 09:54Stop time: 10:18ICD-10: G 93.40CPT Code: 14041 HISTORY: 41 y.o. female with history of morbid obesity, DM2 who presented today to OSH with R sided facial droop and LUE weakness . Patient was evaluated at OSH where patient was started with tPA after normal CT. Now with acute encephalopathy MEDICATIONS THAT COULD AFFECT EEG: TECHNICAL SUMMARY: This is a digital EEG recorded with 32 input channels on a LEYIO system and then reviewed with bipolar and [...] additional EEG recordings. Javi Mae MDNeurophysiology Fellow [id number] Note: I personally reviewed this EEG record in its entirety and I agreewith the details of this report. Kitty Benson MD, PhDEpilepsy Attending 11 :38 AMCREATINE KINASE (CK), TOTAL AND [id number] 09:35:00 Test Item Value Reference Range Comments CREATINE KINASE TOTAL (WootocracyAKER) (test raij=212) 52 U/L 29-200 CREATINE KINASE-MB (BEAKER) (test ownp=413) 1.2 ng/mL 0.0-6.6 CREATINE KINASE-MB INDEX (BEAKER) (test flpe=093) 2.3 % CK-MB Reference Range:<6.7 Normal6.7-10.0 Borderline>10.0 AbnormalTROPONIN [id number] 09:31:00 Test Item Value Reference Range Comments TROPONIN I (BEAKER) (test uvgt=257) < ng/mL 0.00-0.03 Troponin I (TnI) levels [...] failure, acidosis, acute neurological disease, and persistent tachyarrhythmia.[id number] 09:28:00 Test Item Value Reference Range Comments AMMONIA (BEAKER) (test jxwd=065) 34 mol/L 18-72 TSH/FREE T4 IF [id number] 04:28:00 Test Item Value Reference Range Comments THYROID STIMULATING HORMONE (BEAKER) (test 1.12 uIU/mL 0.35-4.94 puul=676) VITAMIN B12 AND [id number] 04:28:00 Test Item Value Reference Range Comments VITAMIN B12 (BEAKER) (test hzcs=357) 417 pg/mL 213-816 FOLATE (BEAKER) (test cxer=610) 13.6 ng/mL >=7.0 CBC W/PLT COUNT & AUTO [id number] 03:27:00 Test Item Value Reference Range Comments WHITE BLOOD CELL COUNT (BEAKER) (test vwgh=313) 8.1 K/ L 3.5-10.5 RED BLOOD CELL COUNT (BEAKER) (test zqlf=978) 3.91 M/ L 3.93-5.22 HEMOGLOBIN (BEAKER) (test iczz=161) 11.4 GM/DL 11.2-15.7 HEMATOCRIT (BEAKER) (test fwbz=887) 35.8 % 34.1-44.9 MEAN CORPUSCULAR VOLUME (BEAKER) (test wbqp=253) 91.6 fL 79.4-94.8 MEAN CORPUSCULAR HEMOGLOBIN (BEAKER) (test 29.2 pg 25.6-32.2 ntvr=584) MEAN CORPUSCULAR HEMOGLOBIN CONC (BEAKER) (test 31.8 GM/DL 32.2-35.5 rsck=242) RED CELL DISTRIBUTION WIDTH (BEAKER) (test 14.3 % 11.7-14.4 jwtq=296) PLATELET COUNT (BEAKER) (test yaqq=278) 166 K/CU MM 150-450 MEAN PLATELET VOLUME (BEAKER) (test lbyq=586) 12.4 fL 9.4-12.3 NUCLEATED RED BLOOD CELLS (BEAKER) (test 0 /100 WBC 0-0 vaff=294) NEUTROPHILS RELATIVE PERCENT (BEAKER) (test 78 % qyat=540) LYMPHOCYTES RELATIVE PERCENT (BEAKER) (test 16 % xuqd=980) MONOCYTES RELATIVE PERCENT (BEAKER) (test 4 % qqws=242) EOSINOPHILS RELATIVE PERCENT (BEAKER) (test 1 % nogm=314) BASOPHILS RELATIVE PERCENT (BEAKER) (test 0 % fwwq=278) NEUTROPHILS ABSOLUTE COUNT (BEAKER) (test 6.27 K/ L 1.56-6.13 quot=154) LYMPHOCYTES ABSOLUTE COUNT (BEAKER) (test 1.30 K/ L 1.18-3.74 yjls=862) MONOCYTES ABSOLUTE COUNT (BEAKER) (test 0.32 K/ L 0.24-0.36 vlgs=002) EOSINOPHILS ABSOLUTE COUNT (BEAKER) (test 0.09 K/ L 0.04-0.36 uqug=720) BASOPHILS ABSOLUTE COUNT (BEAKER) (test 0.02 K/ L 0.01-0.08 mnau=382) IMMATURE GRANULOCYTES-RELATIVE PERCENT (BEAKER) 1 % 0-1 (test ohdo=1401) CREATINE KINASE (CK), TOTAL AND [id number] 03:11:00 Test Item Value Reference Range Comments CREATINE KINASE TOTAL (BEAKER) (test kqjd=975) 71 U/L 29-200 CREATINE KINASE-MB (BEAKER) (test jhre=827) 1.5 ng/mL 0.0-6.6 CREATINE KINASE-MB INDEX (BEAKER) (test bqgv=067) 2.1 % CK-MB Reference Range:<6.7 Normal6.7-10.0 Borderline>10.0 AbnormalFastingFastingTROPONIN [id number] 03:11:00 Test Item Value Reference Range Comments TROPONIN I (BEAKER) (test gomd=493) < ng/mL 0.00-0.03 Troponin I (TnI) levels [...] acute neurological disease, and persistent tachyarrhythmia.FastingBASIC METABOLIC [id number] 03:04:00 Test Item Value Reference Range Comments SODIUM (BEAKER) (test 139 meq/L 136-145 zhdu=772) POTASSIUM (BEAKER) (test 4.3 meq/L 3.5-5.1 Specimen moderately gsrh=680) hemolyzed CHLORIDE (BEAKER) (test 107 meq/L 98-107 pvxa=019) CO2 (BEAKER) (test 24 meq/L 22-29 tkst=927) BLOOD UREA NITROGEN 12 mg/dL 7-21 (BEAKER) (test nbjh=865) CREATININE (BEAKER) (test 0.68 mg/dL 0.57-1.25 Specimen moderately liyx=707) hemolyzed GLUCOSE RANDOM (BEAKER) 175 mg/dL 70-105 (test nsxy=413) CALCIUM (BEAKER) (test 8.5 mg/dL 8.4-10.2 qkin=772) EGFR (BEAKER) (test 95 mL/min/1.73 sq m ESTIMATED GFR IS NOT fzwo=3951) ACCURATE CREATININE CLEARANCE IN PREDICTING GLOMERULAR FILTRATION RATE. ESTIMATED GFR IS NOT APPLICABLE FOR DIALYSIS PATIENTS. FastingLIPID [id number] 03:04:00 Test Item Value Reference Range Comments TRIGLYCERIDES (BEAKER) (test 99 mg/dL Specimen moderately uveq=170) hemolyzed CHOLESTEROL (BEAKER) (test 139 mg/dL Specimen moderately ogsm=011) hemolyzed HDL CHOLESTEROL (BEAKER) (test 43 mg/dL jghy=528) LDL CHOLESTEROL CALCULATED 76 mg/dL (BEAKER) (test bcoj=168) Triglyceride Reference Range: Low Risk <150 Borderline 150- 199 High Risk 200-499 Very High Risk >=500Cholesterol Reference Range: Low Risk <200 Borderline 200-239 High Risk > 240HDL Cholesterol Reference Range: Low Risk >=60 High Risk <40LDL Cholesterol Reference Range: Optimal <100 Near Optimal 100-129 Borderline 130-159 High 160-189 Very High >=190 FastingHEPATIC FUNCTION [id number] 03:04:00 Test Item Value Reference Range Comments TOTAL PROTEIN (BEAKER) (test 7.2 gm/dL 6.0-8.3 Specimen moderately hemolyzed cnks=083) ALBUMIN (BEAKER) (test 3.4 g/dL 3.5-5.0 Specimen moderately hemolyzed bfso=3162) BILIRUBIN TOTAL (BEAKER) (test 0.3 mg/dL 0.2-1.2 Specimen moderately hemolyzed zvmx=904) BILIRUBIN DIRECT (BEAKER) 0.1 mg/dL 0.1-0.5 Specimen moderately hemolyzed (test jlyk=433) ALKALINE PHOSPHATASE (BEAKER) 74 U/L 40-150 (test fopj=970) AST (SGOT) (BEAKER) (test 37 U/L 5-34 Specimen moderately hemolyzed kplf=221) ALT (SGPT) (BEAKER) (test 18 U/L 6-55 Specimen moderately diwt=604) hemolyzed Fasting
--- OUTSIDE RECORDS SUMMARY | 2017-10-14 11:07 | XMS REPORT | Clinical Summary ---
:1975 Author Organization [facility] Address [address] [place] [address] Phone Care Team Providers Name Role Phone [...] for up to 360 days. aluminum & magnesium Take 30 mLs by 355 mL 0 04/14/2017 hydroxide-simethicone mouth every 6 7 (MAALOX PLUS) (six) hours as 400-400-40 mg/5 mL needed for up suspension to 10 days. amitriptyline Take 1 tablet 90 tablet 3 05/04/2017 Discontinued (ELAVIL) 10 MG tablet (10 mg total) 7 by mouth nightly. Active Problems Problem Noted Date Headache, acute 05/02/2017 CVA (cerebral vascular accident) ([facility]) 06/07/2016 Encounters Date Type Specialty Care Team Description 05/02/2017 - Hospital Encounter General Internal Smitha Martinez, Cerebrovascular 05/04/2017 Medicine accident (CVA), Talat Concepcion unspecified mechanism MD Shilpi ([facility]);Acute intractable headache, unspecified headache type;Intractable vomiting with nausea, unspecified vomiting type;Morbid obesity ([facility]) 04/07/2017 Orders Only General Internal Medicine 04/06/2017 - Hospital Encounter General Internal Andrea Roberson Acute ischemic stroke 04/15/2017 Medicine Dori, ([facility]);Tissue MD plasminogen activator Jaron (t-PA) administered at MD Chiqui other facility within 24 hours prior to current admission;Acute encephalopathy;Type 2 diabetes mellitus without complication, without long-term current use of insulin ([facility]) after 10/13/2016 Social History Tobacco Use Types Packs/Day Years Used Date Former Smoker 1 1 Quit: 07/08/1993 Smokeless Tobacco: Never Used Alcohol Use Drinks/Week oz/Week Comments No Sex Assigned at Date Recorded Not on file Last Filed Vital Signs Vital Sign Reading Time Taken Blood Pressure 112/56 05/04/2017 7:39 AM CONSULTING GROUP ANALYST Pulse 64 05/04/2017 7:39 AM CONSULTING GROUP ANALYST Temperature 36.4 C (97.5 F) 05/04/2017 7:39 AM CONSULTING GROUP ANALYST Respiratory Rate 18 05/04/2017 7:39 AM CONSULTING GROUP ANALYST Oxygen Saturation 95% 05/04/2017 7:39 AM CONSULTING GROUP ANALYST Inhaled Oxygen Concentration - - Weight 157.5 kg (347 lb 4.8 oz) 05/02/2017 10:00 PM CONSULTING GROUP ANALYST Height 160 cm (5' 3") 05/02/2017 10:00 PM CONSULTING GROUP ANALYST Body Mass Index 61.52 05/02/2017 10:00 PM CONSULTING GROUP ANALYST Plan of Treatment Not on file Results EKG-SCANNED (05/10/2017 7:52 AM)Only the most recent of2 resultswithin the time period is included.RHYTHM STRIP - SCAN (05/10/2017 7:52 AM)Only the most recent of2 resultswithin the time period is included.POC-Glucose meter (2016 7:47 AM)Only the most recent of20 resultswithin the time period is included. Component Value Ref Range POC-Glucose Meter 143 (H)Comment: TESTED AT [address] 70 - 110 mg/[place] [address] Specimen Performing Laboratory Blood [address] [address] Prothrombin time/INR (05/04/2017 4:51 AM)Only the most recent of2 resultswithin the time period is included. Component Value Ref Range Protime 13.4 11.7 - 14.7 seconds INR 1.0 <=5.9 Specimen Performing Laboratory Blood - Arm, [address] [address] Narrative RECOMMENDED COUMADIN/WARFARIN INR THERAPY RANGES STANDARD [...] mg/dL Specimen Performing Laboratory Blood - Arm, [address] [address] Magnesium (05/04/2017 4:51 AM)Only the most recent of2 resultswithin the time period is included. Component Value Ref Range Magnesium 2.3 1.6 - 2.6 mg/dL Specimen Performing Laboratory Blood - Arm, [address] [address] Hepatic function panel (05/04/2017 4:51 AM)Only the [...] U/L Specimen Performing Laboratory Blood - Arm, [address] [address] Basic metabolic panel (05/04/2017 4:51 AM)Only the [...] PATIENTS. Specimen Performing Laboratory Blood - Arm, [address] [address] CBC with platelet count + automated diff [...] % Specimen Performing Laboratory Blood - Arm, [address] [address] Troponin I (05/03/2017 5:17 AM)Only the most recent of4 resultswithin the time period is included. Component Value Ref Range Troponin I <0.01 0.00 - 0.03 ng/mL Specimen Performing Laboratory Blood - Arm, [address] [address] Narrative Troponin I (TnI) levels must be [...] Status --------- ------ CBC with platelet count ...[[id number]]AbnormalFinal result Please view results for these tests on the individual orders. Creatine Kinase (CK), Total and MB (05/03/2017 1:00 AM)Only the most recent of3 resultswithin the time period is included. Component Value Ref Range Total CK 55 29 - 200 U/L CK-MB 1.1 0.0 - 6.6 ng/mL MB Relative Index 2.0 % Specimen Performing Laboratory Blood [address] [address] Narrative CK-MB Reference Range: <6.7Normal 6.7-10.0Borderline >10.0 [...] 0 /100 WBC Specimen Performing Laboratory Blood [address] [address] Clostridium difficile Toxin PCR (04/11/2017 2:20 PM) Component Value Ref Range C.Diff Toxin, PCR Not Detected Not Detected Specimen Performing Laboratory Stool [address] [address] Narrative This qualitative real-time polymerase chain reaction [...] Ref Range Ejection Fraction Specimen Performing Laboratory [facility] Narr[facility] Transthoracic Echocardiography Report (TTE) Demographics Patient Name HUNTER, Date of Study 04/10/2017 GIOVANNY [id number] GenderFemale Visit Number [id number] Race Unknown [id number] Number [id number] Number Date of Birth1975 Referring Physician Age41 year(s) Hospital [facility] Needs to be Pre Physician Read Frederic [...] Name HUNTER, Date of Study 04/10/2017 GIOVANNY Gender Female Visit Number [id number] Race Unknown Room Number 7518 Number Date of 1975 Referring Physician Age 41 year(s) Hospital Liaison Omi Wright Interpreting [facility] Needs to be Pre Physician Read Frederic [...] 6.1 % Specimen Performing Laboratory Blood [facility] [address] [address] [address] brain without IV contrast (04/09/2017 6:45 AM)Only the most recent of2 resultswithin the time period is included. Specimen Performing Laboratory [employer] RIS Narrative FINAL REPORT Clinical history : [...] MD Report Verified Date/Time:04/09/2017 06:55:25 Reading Location: [facility] C013X Ortho Consult Reading Room Procedure Note Interface, [...] Report Verified Date/Time: 04/09/2017 06:55:25 Reading Location: [facility] C013X Ortho Consult Reading Room PHERAL VASCULAR REPORT - SCAN (04/07/2017 5:07 PM)Carotid doppler bilateral (04/07/2017 12:14 PM) Component Value Ref Range Ejection Fraction Specimen Performing Laboratory [facility] ECHO [facility]ARTLAB [facility] CPACS Impressions Right [...] Patient Name Ty CALDERÓN of Study 04/07/2017 [id number] Age 41 Visit Number [id number] Gender Female Accession Number [id number] Date of 1975 [facility] Room Number 7518 Physician SonographAura Tee. Jaya Jeff MD, RVSPhysician VI Procedure Type of Study: Cerebral: Carotid, CAROTID DOPPLER, BILATERAL. Indications for Study:Stroke workup . Patient Status:Routine. Study Location:Portable. Technical Quality:Adequate visualization. Risk Factors History of Disease + + + + !Diagnosis !Date!Comments ! + + + + !History/Risk!04/07/2017!Former smoker, CVA with left sided weakness & ! !Factors:!!right facial droop, DM, Morbid obesity! + + + + Procedure Note Interface, External Ris In - 04/07/2017 4:18 PM CDT PV LAB - Carotid Duplex Study Demographics Patient Name GIOVANNY CALDERÓN Date of Study 04/07/2017 Age 41 Visit Number [id number] Gender Female Accession Number [id number] Date of 1975 Referring Andrea Roberson Room Number 8755 Physician Hospital Liaison Rupert Lugo Interpreting Rajeev Jeff MD, RVS Physician RPVI Procedure Type of Study: Cerebral: Carotid, [...] DROWSY (04/07/2017 10:18 AM) Specimen Performing Laboratory [facility] Narrative DATE OF EE04-07-2017 DATE OF REPORT: 04-07-2017 ACC: [id number] EE Start time: 09:54 Stop time: 10:18 ICD-10:G 93.40 CPT Code: 36010 HISTORY: 41 y.o. female with history of morbid obesity, DM2 who presented today to OSH with R sided facial droop and LUE weakness . Patient was evaluated at OSH where patient was started with tPA after normal CT. Now with acute encephalopathy MEDICATIONS THAT COULD AFFECT EEG: TECHNICAL SUMMARY: This is a digital EEG recorded with 32 input channels on a [employer] system and then reviewed with bipolar and [...] OF EE04-07-2017 DATE OF REPORT: 04-07-2017 ACC: [id number] EE1 Start time: 09:54 Stop time: 10:18 ICD-10: G 93.40 CPT Code: 04531 HISTORY: 41 y.o. female with history of morbid obesity, DM2 who presented today to OSH with R sided facial droop and LUE weakness . Patient was evaluated at OSH where patient was started with tPA after normal CT. Now with acute encephalopathy MEDICATIONS THAT COULD AFFECT EEG: TECHNICAL SUMMARY: This is a digital EEG recorded with 32 input channels on a [employer] system and then reviewed with bipolar and [...] - 72 mol/L Specimen Performing Laboratory Blood [address] [address] ECG 12 lead (04/07/2017 7:29 AM) Specimen Performing Laboratory [facility] Narrative Ventricular Rate 81 BPM Atrial Rate 81 BPM P-R Interval 120 ms QRS Duration 90 ms Q-T Interval 392 ms QTC Calculation(Bazett) 455 ms P Addis 19 degrees R Addis 42 degrees T Addis 32 degrees Normal sinus rhythm Normal ECG When compared with ECG of 09-JUN-2016 14:09, No significant change was found Confirmed by MD OLIVERA JORGE ([id number]) on 04/07/2017 2:44:04 PM Procedure Note Interface, External Ris In - 04/07/2017 2:44 PM CDT Ventricular Rate 81 BPM Atrial Rate 81 BPM P-R Interval 120 ms QRS Duration 90 ms Q-T Interval 392 ms QTC Calculation(Bazett) 455 ms P Addis 19 degrees R Addis 42 degrees T Addis 32 degrees Normal sinus rhythm Normal ECG When compared with ECG of 09-JUN-2016 14:09, No significant change was found Confirmed by MD OLIVERA JORGE ([id number]) on 04/07/2017 2:44:04 PM Vitamin B12 and Folate (04/07/2017 2:37 AM) Component Value Ref Range Vitamin B12 417 213 - 816 pg/mL Folate 13.6 >=7.0 ng/mL Specimen Performing Laboratory Blood [address] [address] TSH/Free T4 If Indicated (04/07/2017 2:37 AM) Component Value Ref Range TSH 1.12 0.35 - 4.94 uIU/mL Specimen Performing Laboratory Blood [address] [address] Fasting lipid panel (04/07/2017 2:37 AM) Component Value Ref Range Triglycerides 99Comment: Specimen moderately hemolyzed mg/dL Cholesterol 139Comment: Specimen moderately hemolyzed mg/dL HDL 43 mg/dL LDL Calculated 76 mg/dL Specimen Performing Laboratory Blood [facility] [address] [place] [address] Narrative Triglyceride Reference Range: Low Risk <150 [id number] High Risk 200-499 Very High Risk>=500 Cholesterol Reference Range: Low Risk <200 Smqrmgqkmb310-996 High Risk>240 HDL Cholesterol Reference Range: Low Risk >=60 High Risk <40 LDL Cholesterol Reference Range: Optimal<100 Near [id number] Rjcbcsccdd448-376 Cjla113-634 Very High >=190 Fasting CTA brain (04/07/2017 12:32 AM) Specimen Performing Laboratory [employer] RIS Narrative Addendum Begins REPORT STATUS:A Three-dimensional post intravenous contrast images of the cerebral vasculature were created on a free standing workstation for better visualization of cerebral vascular anatomy and pathology. Signed: Skip Gardner MD Report Verified Date/Time:04/12/2017 06:59:20 Reading Location: [address] Ortho Consult Reading Room Addendum Ends [...] MD Report Verified Date/Time:04/07/2017 01:12:44 Reading Location: [address] Ortho Consult Reading Room Procedure Note Interface, External Ris In - 04/12/2017 7:01 AM CDT Addendum Begins REPORT STATUS:A Three-dimensional post intravenous contrast images of the cerebral vasculature were created on a free standing workstation for better visualization of cerebral vascular anatomy and pathology. Signed: Skip Gardner MD Report Verified Date/Time: 04/12/2017 06:59:20 Reading Location: [address] Ortho Consult Reading Room Addendum Ends [...] Report Verified Date/Time: 04/07/2017 01:12:44 Reading Location: [facility] B1 C013X [facility] Consult Reading Room after 10/13/2016
[2017-10-14] MEDS ORDERED: CEFAZOLIN/SWI 1gm 1 GM/10 ML SYR ONE (11:08)
[2017-10-14] MEDS ORDERED: PROPOFOL 200 MG/20 ML VIAL IV ONE (11:30)
[2017-10-14] MEDS ORDERED: LIDOCAINE 2% MPF 5 ML VIAL ONE (11:31)
[2017-10-14] MEDS ORDERED: MIDAZOLAM HCL 2 MG/2 ML INJ ONE (11:31)
[2017-10-14] MEDS ORDERED: ROCURONIUM 50 MG/5 ML VIAL IV ONE ×2 (11:33→12:15)
[2017-10-14] MEDS ORDERED: FENTANYL CITR 100 MCG/2 ML ONE (11:34)
[2017-10-14] MEDS ORDERED: ONDANSETRON 4 MG/2 ML VIAL ONE ×2 (12:08→13:46)
[2017-10-14] MEDS ORDERED: GLYCOPYRROLATE 0.2 MG/ML SYR ONE (12:37)
[2017-10-14] MEDS ORDERED: Mastisol Adhesive Liq ONE (12:59)
[2017-10-14] MEDS ORDERED: NEOSTIGMINE 1 MG/ML -5 ML SYRINGE ONE (12:59)
--- NOTE | 2017-10-14 13:10 | P.BOP ---
Preoperative diagnosis: Incarcerated ventral hernia, morbid obesity, diabetes Postoperative diagnosis: same Primary procedure: Open repair of incarcerated ventral hernia with mesh Clinching Machine Operator: Dominga Dailey (Tashia) Estimated blood loss: <20cc Specimen: hernia sac and omentum Findings: incarcerated omentum Anesthesia: General Complications: None Drain(s): Other Implants: medium ventralex Transferred to: Recovery Room Condition: Good
[2017-10-14] MEDS: MEPERIDINE HCL 50 MG/ML AMP ONE ×4 (13:40→14:00)
[2017-10-14] MEDS: MORPHINE 4 MG/ML SYR ONE ×4 (14:20→14:50)
[2017-10-14 15:41] VITALS: O2SAT 97
[2017-10-14] MEDS ORDERED: HYDROCODONE/APAP 5/325 MG TAB ONE (17:10)
[2017-10-14 18:00] VITALS: BP 124/81; TEMP 98
--- NOTE | 2017-10-15 00:31 | OP ---
Date of Procedure: 10/14/2017 Surgeon: Tj Flannery MD Clinical Trial Leader: ESTUARDO Becerra. Preoperative Diagnoses: Incarcerated tender ventral hernia, morbid obesity, diabetes. Postoperative Diagnoses: Incarcerated tender ventral hernia, morbid obesity, diabetes. Procedure: Open repair of an incarcerated ventral hernia with mesh. Specimen: Hernia sac and omentum. Finding: Incarcerated omentum. Anesthesia: General plus local. Complications: None. Indications: This is a case of a 42-year-old patient with a ventral hernia, tender, the patient want ed that excised. She is trying to lose some weight but she has not able to be where she wants to be. She was advised the importance of . This area had become bigger and tender and she wante d that repaired now, so we booked her in surgery with benefits, alternatives, and risks including, bu t not limited to infection, bleeding, damage to adjacent structures, anesthesia complication, recurre nce, IL, and even . She also understands that this may not relieve any symptoms. She might nee d more than one surgical intervention. She was explained the pros and cons of mesh placement and she was allowed to ask questions and answer to her satisfaction. Procedure In Detail: The patient was brought to the operating room and placed in supine position. A nesthesia was done without complication. Abdominal area was prepped and draped in sterile fashion. Local anesthesia was applied followed by sharp incision of the skin. Incision was carried down to fa scia. We noticed the area to be very deep, so we had to extend the incision to find the fascial edge s. We had an incarcerated omentum. Hernia sac was opened. The omentum was so incarcerated I could reduce this, so we proceeded to ligate that omentum between Flor clamps and 0 silk. Omentum and her ulisses sac was removed. Sent to the pathologist. The fascial edges were cleaned. Due to the consisten cy of this area, I believed a mesh should be used. Still the patient will have to work on losing michaelle ght. So, a Ventralex mesh medium was placed intraperitoneally to overlap the area of the fascia by a t least 3 cm. The mesh was secured in multiple points circumferentially with #0 Prolene. The mesh l ooked nice and flat. No bowel in between. We proceeded to approximate the fascial edges with multip le wafzpo-[id number]-[id number] #1 Prolene. The area was irrigated. Subcutaneous tissue was closed with 3-0 nailhead operator nieves and the skin was closed with 3-0 chromic and 4-0 PDS. Sponge count and instrument counts were co rrect. The patient tolerated the procedure well. The patient was sent to Recovery in stable conditi on. STACEY/ROZINA Voice ID: [id number] Report ID: [id number]
--- NOTE | 2017-10-15 00:37 | DS ---
Date of Discharge: 10/14/2017 Diagnoses: Incarcerated ventral hernia, morbid obesity, and diabetes. Procedures: Open repair of an incarcerated ventral hernia with mesh. Disposition: Home. Activity: As tolerated. No heavy lifting. Followup: Follow up in my office in 1 week, call for appointment, [phone]. Discharge Instructions: Keep area dry until next doctor visit. Medications: Cipro 500 p.o. q.12 and Vicodin q.4 hours p.r.n. pain. The patient was advised the importance of using abdominal binder. The patient understands and she most likely will have area due to the large content of tis lisa in that region, so leave the abdominal binder in. STACEY/ROZINA Voice ID: [id number] Report ID: [id number]
== END 2017-10-14 19:00 | disposition home or self-care (01) ==
LOC: OR 11:04
PROVIDERS: ATTEND Surgery
PROC: 0WUF0JZ Supplement Abdominal Wall with Synthetic Substitute, Open Approach (ICD-10-PCS; principal; 2017-10-14 12:30)
DX: K43.6 Other and unspecified ventral hernia with obstruction, without gangrene (principal); E66.01 Morbid (severe) obesity due to excess calories; E11.8 Type 2 diabetes mellitus with unspecified complications
CPT/HCPCS: 36415; 49561; 49568; 71046; 80048; 82962 ×2; 85025; 88302; 93005; J0690; J2175; J2250; J2405 ×2; J2710; J3010; J7030

== ENCOUNTER 2017-10-26 21:03 | Emergency (ER) | payer OTHER ==
--- OUTSIDE RECORDS SUMMARY | 2017-10-26 21:06 | XMS REPORT | Clinical Summary ---
:1975 Author Organization [facility] Address [address] [place] [address] Phone Care Team Providers Name Role Phone [...] Headache, acute 05/02/2017 CVA (cerebral vascular accident) ([facility]) 06/07/2016 Encounters Date Type Specialty Care Team Description 05/02/2017 - Hospital Encounter General Internal Smitha Martinez, Cerebrovascular 05/04/2017 Medicine accident (CVA), Talat Concepcion unspecified mechanism MD Shilpi ([facility]);Acute intractable headache, unspecified headache type;Intractable vomiting with nausea, unspecified vomiting type;Morbid obesity ([facility]) 04/07/2017 Orders Only General Internal Medicine 04/06/2017 - Hospital Encounter General Internal Andrea Roberson Acute ischemic stroke 04/15/2017 Medicine Dori, ([facility]);Tissue MD plasminogen activator Jaron (t-PA) administered at MD Chiqui other facility within 24 hours prior to current admission;Acute encephalopathy;Type 2 diabetes mellitus without complication, without long-term current use of insulin ([facility]) after 10/25/2016 Social History Tobacco Use Types Packs/Day Years Used Date Former Smoker 1 1 Quit: 07/08/1993 Smokeless Tobacco: Never Used Alcohol Use Drinks/Week oz/Week Comments No Sex Assigned at Date Recorded Not on file Last Filed Vital Signs Vital Sign Reading Time Taken Blood Pressure 112/56 05/04/2017 7:39 AM 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 Pulse 64 05/04/2017 7:39 AM 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 Temperature 36.4 C (97.5 F) 05/04/2017 7:39 AM 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[employer] Respiratory Rate 18 05/04/2017 7:39 AM 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[employer] Oxygen Saturation 95% 05/04/2017 7:39 AM 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ER Inhaled Oxygen Concentration - - Weight 157.5 kg (347 lb 4.8 oz) 05/02/2017 10:00 PM 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[employer] Height 160 cm (5' 3") 05/02/2017 10:00 PM 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 Body Mass Index 61.52 05/02/2017 10:00 PM 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[employer] Plan of Treatment Not on file Results EKG-SCANNED (05/10/2017 7:52 AM)Only the most recent of2 resultswithin the time period is included.RHYTHM STRIP - SCAN (05/10/2017 7:52 AM)Only the most recent of2 resultswithin the time period is included.POC-Glucose meter (2016 7:47 AM)Only the most recent of20 resultswithin the time period is included. Component Value Ref Range POC-Glucose Meter 143 (H)Comment: TESTED AT [address] 70 - 110 mg/[place] [address] Specimen Performing Laboratory Blood [address] [address] Prothrombin time/INR (05/04/2017 4:51 AM)Only the most recent of2 resultswithin the time period is included. Component Value Ref Range Protime 13.4 11.7 - 14.7 seconds INR 1.0 <=5.9 Specimen Performing Laboratory Blood - Arm, [address] [address] Narrative RECOMMENDED COUMADIN/WARFARIN INR THERAPY RANGES STANDARD [...] mg/dL Specimen Performing Laboratory Blood - Arm, [address] [address] Magnesium (05/04/2017 4:51 AM)Only the most recent of2 resultswithin the time period is included. Component Value Ref Range Magnesium 2.3 1.6 - 2.6 mg/dL Specimen Performing Laboratory Blood - Arm, [address] [address] Hepatic function panel (05/04/2017 4:51 AM)Only the [...] U/L Specimen Performing Laboratory Blood - Arm, [address] [address] Basic metabolic panel (05/04/2017 4:51 AM)Only the [...] PATIENTS. Specimen Performing Laboratory Blood - Arm, [address] [address] CBC with platelet count + automated diff [...] % Specimen Performing Laboratory Blood - Arm, [address] [address] Troponin I (05/03/2017 5:17 AM)Only the most recent of4 resultswithin the time period is included. Component Value Ref Range Troponin I <0.01 0.00 - 0.03 ng/mL Specimen Performing Laboratory Blood - Arm, [address] [address] Narrative Troponin I (TnI) levels must be [...] Status --------- ------ CBC with platelet count ...[[id number]]AbnormalFinal result Please view results for these tests on the individual orders. Creatine Kinase (CK), Total and MB (05/03/2017 1:00 AM)Only the most recent of3 resultswithin the time period is included. Component Value Ref Range Total CK 55 29 - 200 U/L CK-MB 1.1 0.0 - 6.6 ng/mL MB Relative Index 2.0 % Specimen Performing Laboratory Blood [address] [address] Narrative CK-MB Reference Range: <6.7Normal 6.7-10.0Borderline >10.0 [...] 0 /100 WBC Specimen Performing Laboratory Blood [address] [address] Clostridium difficile Toxin PCR (04/11/2017 2:20 PM) Component Value Ref Range C.Diff Toxin, PCR Not Detected Not Detected Specimen Performing Laboratory Stool [address] [address] Narrative This qualitative real-time polymerase chain reaction [...] Ref Range Ejection Fraction Specimen Performing Laboratory [facility]CHO [facility]ART[facility] Narrative Transthoracic Echocardiography Report (TTE) Demographics Patient Name HUNTER, Date of Study 04/10/2017 GIOVANNY [id number] GenderFemale Visit Number [id number] Race Unknown [id number] Number [id number] Number Date of Birth1975 Referring Physician Age41 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 Specimen Performing Laboratory orderTopia RIS Narrative FINAL REPORT Clinical history : [...] MD Report Verified Date/Time:04/09/2017 06:55:25 Reading Location: [facility] C013X Ortho Consult Reading Room Procedure Note [...] Report Verified Date/Time: 04/09/2017 06:55:25 Reading Location: [facility] C013X Ortho Consult Reading Room PHERAL VASCULAR REPORT - SCAN (04/07/2017 5:07 PM)Carotid doppler bilateral (04/07/2017 12:14 PM) Component Value Ref Range Ejection Fraction Specimen Performing Laboratory [facility] ECHO [facility]ART[facility]ESSON [facility]ACS Impressions Right Impression [...] Patient Name Ty CALDERÓN of Study 04/07/2017 [id number] Age 41 Visit Number [id number] Gender Female Accession Number [id number] Date of 1975 [facility] Room Number 7518 Physician SonographAura Tee. [...] of Study 04/07/2017 Age 41 Visit Number [id number] Gender Female Accession Number [id number] Date of 1975 Referring Andrea Roberson Room Number 1270 Physician Tour Actor Rupert Lugo Interpreting Rajeev Jeff MD, RVS [...] DROWSY (04/07/2017 10:18 AM) Specimen Performing Laboratory [facility] Narrative DATE OF EE04-07-2017 DATE OF REPORT: 04-07-2017 ACC: [id number] EE Start time: 09:54 Stop time: 10:18 ICD-10:G 93.40 CPT Code: 41245 HISTORY: 41 y.o. female with history of morbid obesity, DM2 who presented today to OSH with R sided facial droop and LUE weakness . Patient was evaluated at OSH where patient was started with tPA after normal CT. Now with acute encephalopathy MEDICATIONS THAT COULD AFFECT EEG: TECHNICAL SUMMARY: This is a digital EEG recorded with 32 input channels on a [employer] system and then reviewed with bipolar and [...] with the details of this report. Kitty Mnotejo MD, PhD Epilepsy Attending Procedure Note Interface, External Ris In - 04/07/2017 11:38 AM CDT DATE OF EE04-07-2017 DATE OF REPORT: 04-07-2017 ACC: [id number] EE1 Start time: 09:54 Stop time: 10:18 ICD-10: G 93.40 CPT Code: 69999 HISTORY: 41 y.o. female with history of morbid obesity, DM2 who presented today to OSH with R sided facial droop and LUE weakness . Patient was evaluated at OSH where patient was started with tPA after normal CT. Now with acute encephalopathy MEDICATIONS THAT COULD AFFECT EEG: TECHNICAL SUMMARY: This is a digital EEG recorded with 32 input channels on a [employer] system and then reviewed with bipolar and [...] - 72 mol/L Specimen Performing Laboratory Blood [address] [address] ECG 12 lead (04/07/2017 7:29 AM) Specimen Performing Laboratory [facility] Narrative Ventricular Rate 81 BPM Atrial Rate 81 BPM P-R Interval 120 ms QRS Duration 90 ms Q-T Interval 392 ms QTC Calculation(Bazett) 455 ms P [place] 19 degrees R [place] 42 degrees T [place] 32 degrees Normal sinus rhythm Normal ECG When compared with ECG of 09-JUN-2016 14:09, No significant change was found Confirmed by MD OLIVERA JORGE ([id number]) on 04/07/2017 2:44:04 PM Procedure Note Interface, External Ris In - 04/07/2017 2:44 PM CDT Ventricular Rate 81 BPM Atrial Rate 81 BPM P-R Interval 120 ms QRS Duration 90 ms Q-T Interval 392 ms QTC Calculation(Bazett) 455 ms P [place] 19 degrees R [place] 42 degrees T [place] 32 degrees Normal sinus rhythm Normal ECG When compared with ECG of 09-JUN-2016 14:09, No significant change was found Confirmed by MD OLIVERA JORGE ([id number]) on 04/07/2017 2:44:04 PM Vitamin B12 and Folate (04/07/2017 2:37 AM) Component Value Ref Range Vitamin B12 417 213 - 816 pg/mL Folate 13.6 >=7.0 ng/mL Specimen Performing Laboratory Blood [address] [address] TSH/Free T4 If Indicated (04/07/2017 2:37 AM) Component Value Ref Range TSH 1.12 0.35 - 4.94 uIU/mL Specimen Performing Laboratory Blood [address] [address] Fasting lipid panel (04/07/2017 2:37 AM) Component Value Ref Range Triglycerides 99Comment: Specimen moderately hemolyzed mg/dL Cholesterol 139Comment: Specimen moderately hemolyzed mg/dL HDL 43 mg/dL LDL Calculated 76 mg/dL Specimen Performing Laboratory Blood [facility] [address] [place] [address] Narrative Triglyceride Reference Range: Low Risk <150 [id number] High Risk 200-499 Very High Risk>=500 Cholesterol Reference Range: Low Risk <200 [id number] High Risk>240 HDL Cholesterol Reference Range: Low Risk >=60 High Risk <40 LDL Cholesterol Reference Range: Optimal<100 Near [id number] Dpyqrscagu216-258 Aqsf135-530 Very High >=190 Fasting CTA brain (04/07/2017 12:32 AM) Specimen Performing Laboratory orderTopia RIS Narrative Addendum Begins REPORT STATUS:A Three-dimensional post intravenous contrast images of the cerebral vasculature were created on a free standing workstation for better visualization of cerebral vascular anatomy and pathology. Signed: Skip Gardner MD Report Verified Date/Time:04/12/2017 06:59:20 Reading Location: [address] Ortho Consult Reading Room Addendum Ends [...] MD Report Verified Date/Time:04/07/2017 01:12:44 Reading Location: [address] Ortho Consult Reading Room Procedure Note Interface, External Ris In - 04/12/2017 7:01 AM CDT Addendum Begins REPORT STATUS:A Three-dimensional post intravenous contrast images of the cerebral vasculature were created on a free standing workstation for better visualization of cerebral vascular anatomy and pathology. Signed: Skip Gardner MD Report Verified Date/Time: 04/12/2017 06:59:20 Reading Location: [address] Ortho Consult Reading Room Addendum Ends [...] Report Verified Date/Time: 04/07/2017 01:12:44 Reading Location: [facility] B1 C013X [facility] Consult Reading Room after 10/25/2016
--- OUTSIDE RECORDS SUMMARY | 2017-10-26 21:07 | XMS REPORT ---
:1975 [facility] Address [address] [place] [address] Care Team Providers Name Role Phone MICKEY RESTREPO Unavailable Unavailable MAYRA CHEUNG Unavailable Unavailable Problems [...] (BEAKER) (test 84 mg/dL 70-110 TESTED AT [facility] [address] [facility] khef=[id number]) [facility] [address] [id number] 08:58:00 Test Item Value Reference Range Comments PHOSPHORUS (BEAKER) (test jitm=795) 4.4 mg/dL 2.3-4.7 [id number] 08:58:00 Test Item Value Reference Range Comments MAGNESIUM (BEAKER) (test scio=661) 2.3 mg/dL 1.6-2.6 BASIC METABOLIC [id number] 08:58:00 Test Item Value Reference Range Comments SODIUM (BEAKER) (test 142 meq/L 136-145 auzu=038) POTASSIUM (BEAKER) (test 3.9 meq/L 3.5-5.1 ezgg=204) CHLORIDE (BEAKER) (test 108 meq/L 98-107 iemd=828) CO2 (BEAKER) (test 26 meq/L 22-29 nodl=554) BLOOD UREA NITROGEN 16 mg/dL 7-21 (BEAKER) (test tevi=715) CREATININE (BEAKER) (test 0.69 mg/dL 0.57-1.25 iioh=382) GLUCOSE RANDOM (BEAKER) 86 mg/dL 70-105 (test ujvm=219) CALCIUM (BEAKER) (test 8.6 mg/dL 8.4-10.2 fofd=138) EGFR (BEAKER) (test 94 mL/min/1.73 sq m ESTIMATED GFR IS NOT geov=0005) ACCURATE CREATININE CLEARANCE IN PREDICTING GLOMERULAR FILTRATION RATE. ESTIMATED GFR IS NOT APPLICABLE FOR DIALYSIS PATIENTS. HEPATIC FUNCTION [id number] 08:58:00 Test Item Value Reference Range Comments TOTAL PROTEIN (BEAKER) (test hmul=767) 6.8 gm/dL 6.0-8.3 ALBUMIN (BEAKER) (test fntz=2041) 3.6 g/dL 3.5-5.0 BILIRUBIN TOTAL (BEAKER) (test ookt=040) 0.4 mg/dL 0.2-1.2 BILIRUBIN DIRECT (BEAKER) (test yehq=340) 0.2 mg/dL 0.1-0.5 ALKALINE PHOSPHATASE (BEAKER) (test ywxh=990) 59 U/L 40-150 AST (SGOT) (BEAKER) (test khhn=738) 24 U/L 5-34 ALT (SGPT) (BEAKER) (test hijo=129) 17 U/L 6-55 POCT-GLUCOSE [id number] 08:20:00 Test Item Value Reference Range Comments POC-GLUCOSE METER (BEAKER) 143 mg/dL 70-110 TESTED AT [address] (test dgrq=9255) [facility] [address] PROTHROMBIN [id number] 05:55:00 Test Item Value Reference Range Comments PROTIME (BEAKER) (test hwno=870) 13.4 seconds 11.7-14.7 INR (BEAKER) (test dbrj=776) 1.0 <=5.9 RECOMMENDED COUMADIN/WARFARIN INR THERAPY RANGESSTANDARD DOSE: 2.0 - 3.0 Includes: PROPHYLAXIS forvenous thrombosis, systemic embolization; TREATMENT for venous thrombosis and/or pulmonary embolus.HIGH RISK: Target INR is 2.5-3.5 for patients with mechanical heart valves.POCT-GLUCOSE [id number] 20:32:00 Test Item Value Reference Range Comments POC-GLUCOSE METER (BEAKER) 90 mg/dL 70-110 TESTED AT [address] (test afcp=2642) [facility] [address] POCT-GLUCOSE [id number] 16:47:00 Test Item Value Reference Range Comments POC-GLUCOSE METER (BEAKER) 79 mg/dL 70-110 TESTED AT [address] (test lfsu=7508) [place] [id number] POCT-GLUCOSE [id number] 07:47:00 Test Item Value Reference Range Comments POC-GLUCOSE METER (BEAKER) 97 mg/dL 70-110 TESTED AT [address] (test rstn=4212) [place] [address] TROPONIN [id number] 07:02:00 Test Item Value Reference Range Comments TROPONIN I (BEAKER) (test qtxg=986) < ng/mL 0.00-0.03 Troponin I (TnI) levels [...] failure, acidosis, acute neurological disease, and persistent tachyarrhythmia.[id number] 07:00:00 Test Item Value Reference Range Comments PHOSPHORUS (BEAKER) (test zjvh=968) 5.0 mg/dL 2.3-4.7 [id number] 07:00:00 Test Item Value Reference Range Comments MAGNESIUM (BEAKER) (test yqas=851) 1.9 mg/dL 1.6-2.6 BASIC METABOLIC [id number] 07:00:00 Test Item Value Reference Range Comments SODIUM (BEAKER) (test 141 meq/L 136-145 ftdy=639) POTASSIUM (BEAKER) (test 4.0 meq/L 3.5-5.1 kdue=467) CHLORIDE (BEAKER) (test 106 meq/L 98-107 lrjk=216) CO2 (BEAKER) (test 25 meq/L 22-29 xtzp=251) BLOOD UREA NITROGEN 14 mg/dL 7-21 (BEAKER) (test huzz=310) CREATININE (BEAKER) (test 0.72 mg/dL 0.57-1.25 sfvn=539) GLUCOSE RANDOM (BEAKER) 109 mg/dL 70-105 (test hyzg=170) CALCIUM (BEAKER) (test 9.5 mg/dL 8.4-10.2 tdib=975) EGFR (BEAKER) (test 89 mL/min/1.73 sq m ESTIMATED GFR IS NOT xvwl=6319) ACCURATE CREATININE CLEARANCE IN PREDICTING GLOMERULAR FILTRATION RATE. ESTIMATED GFR IS NOT APPLICABLE FOR DIALYSIS PATIENTS. HEPATIC FUNCTION [id number] 07:00:00 Test Item Value Reference Range Comments TOTAL PROTEIN (BEAKER) (test xygk=667) 7.7 gm/dL 6.0-8.3 ALBUMIN (BEAKER) (test pjza=8773) 4.0 g/dL 3.5-5.0 BILIRUBIN TOTAL (BEAKER) (test fjhy=539) 0.5 mg/dL 0.2-1.2 BILIRUBIN DIRECT (BEAKER) (test spdh=748) 0.2 mg/dL 0.1-0.5 ALKALINE PHOSPHATASE (BEAKER) (test awvt=420) 69 U/L 40-150 AST (SGOT) (BEAKER) (test ojhn=822) 34 U/L 5-34 ALT (SGPT) (BEAKER) (test svrk=948) 21 U/L 6-55 PROTHROMBIN [id number] 06:31:00 Test Item Value Reference Range Comments PROTIME (BEAKER) (test ubvy=900) 14.0 seconds 11.7-14.7 INR (BEAKER) (test fprz=862) 1.1 <=5.9 RECOMMENDED COUMADIN/WARFARIN INR THERAPY RANGESSTANDARD DOSE: 2.0 - 3.0 Includes: PROPHYLAXIS forvenous thrombosis, systemic embolization; TREATMENT for venous thrombosis and/or pulmonary embolus.HIGH RISK: Target INR is 2.5-3.5 for patients with mechanical heart valves.CBC W/PLT COUNT & AUTO [id number] 06:28:00 Test Item Value Reference Range Comments WHITE BLOOD CELL COUNT (BEAKER) (test ostq=150) 8.9 K/ L 3.5-10.5 RED BLOOD CELL COUNT (BEAKER) (test osty=132) 4.55 M/ L 3.93-5.22 HEMOGLOBIN (BEAKER) (test wixs=430) 13.0 GM/DL 11.2-15.7 HEMATOCRIT (BEAKER) (test jzvy=878) 42.0 % 34.1-44.9 MEAN CORPUSCULAR VOLUME (BEAKER) (test dizn=966) 92.3 fL 79.4-94.8 MEAN CORPUSCULAR HEMOGLOBIN (BEAKER) (test 28.6 pg 25.6-32.2 awel=807) MEAN CORPUSCULAR HEMOGLOBIN CONC (BEAKER) (test 31.0 GM/DL 32.2-35.5 wofl=303) RED CELL DISTRIBUTION WIDTH (BEAKER) (test 13.9 % 11.7-14.4 wwrq=679) PLATELET COUNT (BEAKER) (test tpro=861) 202 K/CU MM 150-450 MEAN PLATELET VOLUME (BEAKER) (test zqat=465) 12.6 fL 9.4-12.3 NUCLEATED RED BLOOD CELLS (BEAKER) (test 0 /100 WBC 0-0 sina=997) NEUTROPHILS RELATIVE PERCENT (BEAKER) (test 70 % fbjc=320) LYMPHOCYTES RELATIVE PERCENT (BEAKER) (test 23 % zuja=884) MONOCYTES RELATIVE PERCENT (BEAKER) (test 4 % xrym=559) EOSINOPHILS RELATIVE PERCENT (BEAKER) (test 3 % nxte=142) BASOPHILS RELATIVE PERCENT (BEAKER) (test 0 % trcd=814) NEUTROPHILS ABSOLUTE COUNT (BEAKER) (test 6.19 K/ L 1.56-6.13 sfya=546) LYMPHOCYTES ABSOLUTE COUNT (BEAKER) (test 2.03 K/ L 1.18-3.74 wivp=137) MONOCYTES ABSOLUTE COUNT (BEAKER) (test 0.37 K/ L 0.24-0.36 goav=414) EOSINOPHILS ABSOLUTE COUNT (BEAKER) (test 0.24 K/ L 0.04-0.36 cjzh=464) BASOPHILS ABSOLUTE COUNT (BEAKER) (test 0.02 K/ L 0.01-0.08 cmiw=173) IMMATURE GRANULOCYTES-RELATIVE PERCENT (BEAKER) 0 % 0-1 (test vtxt=2645) CREATINE KINASE (CK), TOTAL AND [id number] 01:39:00 Test Item Value Reference Range Comments CREATINE KINASE TOTAL (BEAKER) (test rlno=524) 55 U/L 29-200 CREATINE KINASE-MB (BEAKER) (test rlzv=695) 1.1 ng/mL 0.0-6.6 CREATINE KINASE-MB INDEX (BEAKER) (test dyla=627) 2.0 % CK-MB Reference Range:<6.7 Normal6.7-10.0 Borderline>10.0 AbnormalTROPONIN [id number] 01:39:00 Test Item Value Reference Range Comments TROPONIN I (BEAKER) (test paro=385) < ng/mL 0.00-0.03 Troponin I (TnI) levels [...] acidosis, acute neurological disease, and persistent tachyarrhythmia.POCT-GLUCOSE [id number] 12:39:00 Test Item Value Reference Range Comments POC-GLUCOSE METER (BEAKER) 80 mg/dL 70-110 TESTED AT [address] (test zmcs=1741) [place] [address] POCT-GLUCOSE [id number] 07:07:00 Test Item Value Reference Range Comments POC-GLUCOSE METER (BEAKER) 100 mg/dL 70-110 TESTED AT [address] (test buww=2551) [place] [address] POCT-GLUCOSE [id number] 21:12:00 Test Item Value Reference Range Comments POC-GLUCOSE METER (BEAKER) 138 mg/dL 70-110 TESTED AT [address] (test izbo=8084) [place] [address] POCT-GLUCOSE [id number] 12:04:00 Test Item Value Reference Range Comments POC-GLUCOSE METER (BEAKER) 113 mg/dL 70-110 TESTED AT [address] (test hfvt=0589) [place] [id number] BASIC METABOLIC [id number] 04:26:00 Test Item Value Reference Range Comments SODIUM (BEAKER) (test 141 meq/L 136-145 izuq=733) POTASSIUM (BEAKER) (test 4.2 meq/L 3.5-5.1 Specimen moderately swcx=650) hemolyzed CHLORIDE (BEAKER) (test 107 meq/L 98-107 kzju=268) CO2 (BEAKER) (test 25 meq/L 22-29 mzqy=719) BLOOD UREA NITROGEN 13 mg/dL 7-21 (BEAKER) (test emzc=161) CREATININE (BEAKER) (test 0.61 mg/dL 0.57-1.25 Specimen moderately smbd=679) hemolyzed GLUCOSE RANDOM (BEAKER) 93 mg/dL 70-105 (test cjsn=744) CALCIUM (BEAKER) (test 9.0 mg/dL 8.4-10.2 opam=245) EGFR (BEAKER) (test 108 mL/min/1.73 sq m ESTIMATED GFR IS NOT rgce=1543) ACCURATE CREATININE CLEARANCE IN PREDICTING GLOMERULAR FILTRATION RATE. ESTIMATED GFR IS NOT APPLICABLE FOR DIALYSIS PATIENTS. CBC W/PLT COUNT & AUTO [id number] 04:02:00 Test Item Value Reference Range Comments WHITE BLOOD CELL COUNT (BEAKER) (test iodp=895) 8.4 K/ L 3.5-10.5 RED BLOOD CELL COUNT (BEAKER) (test kswd=235) 4.15 M/ L 3.93-5.22 HEMOGLOBIN (BEAKER) (test apgh=214) 11.8 GM/DL 11.2-15.7 HEMATOCRIT (BEAKER) (test mami=229) 37.9 % 34.1-44.9 MEAN CORPUSCULAR VOLUME (BEAKER) (test fydn=187) 91.3 fL 79.4-94.8 MEAN CORPUSCULAR HEMOGLOBIN (BEAKER) (test 28.4 pg 25.6-32.2 uqfe=702) MEAN CORPUSCULAR HEMOGLOBIN CONC (BEAKER) (test 31.1 GM/DL 32.2-35.5 phll=524) RED CELL DISTRIBUTION WIDTH (BEAKER) (test 14.1 % 11.7-14.4 pwfy=764) PLATELET COUNT (BEAKER) (test bfuf=663) 200 K/CU MM 150-450 MEAN PLATELET VOLUME (BEAKER) (test ijvf=140) 11.9 fL 9.4-12.3 NUCLEATED RED BLOOD CELLS (BEAKER) (test 0 /100 WBC 0-0 gceh=669) NEUTROPHILS RELATIVE PERCENT (BEAKER) (test 73 % xcwh=610) LYMPHOCYTES RELATIVE PERCENT (BEAKER) (test 19 % hzwe=343) MONOCYTES RELATIVE PERCENT (BEAKER) (test 5 % fblq=195) EOSINOPHILS RELATIVE PERCENT (BEAKER) (test 3 % xkju=133) BASOPHILS RELATIVE PERCENT (BEAKER) (test 0 % pxha=898) NEUTROPHILS ABSOLUTE COUNT (BEAKER) (test 6.08 K/ L 1.56-6.13 meak=883) LYMPHOCYTES ABSOLUTE COUNT (BEAKER) (test 1.62 K/ L 1.18-3.74 prai=381) MONOCYTES ABSOLUTE COUNT (BEAKER) (test 0.39 K/ L 0.24-0.36 yrar=429) EOSINOPHILS ABSOLUTE COUNT (BEAKER) (test 0.24 K/ L 0.04-0.36 jxnc=456) BASOPHILS ABSOLUTE COUNT (BEAKER) (test 0.01 K/ L 0.01-0.08 aibk=601) IMMATURE GRANULOCYTES-RELATIVE PERCENT (BEAKER) 1 % 0-1 (test czwo=8728) CLOSTRIDIUM DIFFICILE TOXIN [id number] 13:44:00 Test Item Value Reference Range Comments CLOSTRIDIUM DIFFICILE TOXIN, PCR (BEAKER) (test Not Detected Not Detected qujh=3149) This qualitative real-time polymerase chain reaction assay [...] a positive result is not recommended.CT, CTANGIO [id number] 06:59:00Addendum BeginsREPORT STATUS:A Three-dimensional post intravenous contrast images of the cerebral vasculature were created on a free standing workstation for better visualization of cerebral vascular anatomy and pathology. Signed: Skip Gardner MDReport Verified Date/Time: 04/12/2017 06:59:20 Reading Location: [place] [id number] Ortho Consult Reading RoomAddendum EndsFINAL REPORT Noncontrast [...] Hooks on 04/07/2017 at 12:50 AM. Signed: Omessi, Skip MDReport Verified Date/Time: 04/07/2017 01:12:44 Reading Location: [facility] [id number] Ortho Consult Reading Room BASIC METABOLIC [id number] 05:37:00 Test Item Value Reference Range Comments SODIUM (BEAKER) (test 142 meq/L 136-145 iszs=966) POTASSIUM (BEAKER) (test 3.7 meq/L 3.5-5.1 Specimen slightly xfke=665) hemolyzed CHLORIDE (BEAKER) (test 105 meq/L 98-107 zknp=149) CO2 (BEAKER) (test 27 meq/L 22-29 zrxi=688) BLOOD UREA NITROGEN 11 mg/dL 7-21 (BEAKER) (test dicn=436) CREATININE (BEAKER) (test 0.66 mg/dL 0.57-1.25 Specimen slightly yffm=667) hemolyzed GLUCOSE RANDOM (BEAKER) 97 mg/dL 70-105 (test sdox=963) CALCIUM (BEAKER) (test 9.2 mg/dL 8.4-10.2 yivx=863) EGFR (BEAKER) (test 99 mL/min/1.73 sq m ESTIMATED GFR IS NOT zdve=2970) ACCURATE CREATININE CLEARANCE IN PREDICTING GLOMERULAR FILTRATION RATE. ESTIMATED GFR IS NOT APPLICABLE FOR DIALYSIS PATIENTS. CBC (HEMOGRAM ONLY)2017-04-12 05:17:00 Test Item Value Reference Range Comments WHITE BLOOD CELL COUNT (BEAKER) (test mlze=792) 7.7 K/ L 3.5-10.5 RED BLOOD CELL COUNT (BEAKER) (test quue=265) 4.17 M/ L 3.93-5.22 HEMOGLOBIN (BEAKER) (test gdtt=758) 12.0 GM/DL 11.2-15.7 HEMATOCRIT (BEAKER) (test hdhd=711) 38.0 % 34.1-44.9 MEAN CORPUSCULAR VOLUME (BEAKER) (test bdou=010) 91.1 fL 79.4-94.8 MEAN CORPUSCULAR HEMOGLOBIN (BEAKER) (test 28.8 pg 25.6-32.2 gfik=866) MEAN CORPUSCULAR HEMOGLOBIN CONC (BEAKER) (test 31.6 GM/DL 32.2-35.5 opcp=715) RED CELL DISTRIBUTION WIDTH (BEAKER) (test 14.0 % 11.7-14.4 eips=587) PLATELET COUNT (BEAKER) (test mkuf=804) 219 K/CU MM 150-450 MEAN PLATELET VOLUME (BEAKER) (test vizw=174) 11.6 fL 9.4-12.3 NUCLEATED RED BLOOD CELLS (BEAKER) (test 0 /100 WBC 0-0 teik=145) POCT-GLUCOSE [id number] 17:55:00 Test Item Value Reference Range Comments POC-GLUCOSE METER (BEAKER) 111 mg/dL 70-110 TESTED AT [address] (test fkkq=5647) [place] [address] POCT-GLUCOSE [id number] 12:02:00 Test Item Value Reference Range Comments POC-GLUCOSE METER (BEAKER) 100 mg/dL 70-110 TESTED AT [address] (test mlzf=5750) [place] [address] POCT-GLUCOSE [id number] 07:50:00 Test Item Value Reference Range Comments POC-GLUCOSE METER (BEAKER) 110 mg/dL 70-110 TESTED AT [address] (test edkr=0363) [place] [address] POCT-GLUCOSE [id number] 16:56:00 Test Item Value Reference Range Comments POC-GLUCOSE METER (BEAKER) 104 mg/dL 70-110 TESTED AT [address] (test phxx=0053) [place] [address] POCT-GLUCOSE [id number] 12:22:00 Test Item Value Reference Range Comments POC-GLUCOSE METER (BEAKER) 84 mg/dL 70-110 TESTED AT [address] (test uycm=9021) [place] [address] HEMOGLOBIN [id number] 08:46:00 Test Item Value Reference Range Comments HEMOGLOBIN A1C (BEAKER) (test nvvu=245) 6.2 % 4.3-6.1 BASIC METABOLIC [id number] 06:42:00 Test Item Value Reference Range Comments SODIUM (BEAKER) (test 142 meq/L 136-145 mqus=077) POTASSIUM (BEAKER) (test 4.1 meq/L 3.5-5.1 Specimen slightly qjbk=753) hemolyzed CHLORIDE (BEAKER) (test 104 meq/L 98-107 yycy=101) CO2 (BEAKER) (test 28 meq/L 22-29 kkzg=200) BLOOD UREA NITROGEN 9 mg/dL 7-21 (BEAKER) (test psiv=293) CREATININE (BEAKER) (test 0.60 mg/dL 0.57-1.25 Specimen slightly gzml=136) hemolyzed GLUCOSE RANDOM (BEAKER) 96 mg/dL 70-105 (test idfm=746) CALCIUM (BEAKER) (test 9.1 mg/dL 8.4-10.2 dpod=291) EGFR (BEAKER) (test 110 mL/min/1.73 sq m ESTIMATED GFR IS NOT dagb=4991) ACCURATE CREATININE CLEARANCE IN PREDICTING GLOMERULAR FILTRATION RATE. ESTIMATED GFR IS NOT APPLICABLE FOR DIALYSIS PATIENTS. CBC W/PLT COUNT & AUTO [id number] 06:19:00 Test Item Value Reference Range Comments WHITE BLOOD CELL COUNT (BEAKER) (test arav=853) 7.5 K/ L 3.5-10.5 RED BLOOD CELL COUNT (BEAKER) (test xuni=748) 4.12 M/ L 3.93-5.22 HEMOGLOBIN (BEAKER) (test zuzk=815) 11.8 GM/DL 11.2-15.7 HEMATOCRIT (BEAKER) (test tzjl=896) 37.6 % 34.1-44.9 MEAN CORPUSCULAR VOLUME (BEAKER) (test atmy=970) 91.3 fL 79.4-94.8 MEAN CORPUSCULAR HEMOGLOBIN (BEAKER) (test 28.6 pg 25.6-32.2 gkjc=068) MEAN CORPUSCULAR HEMOGLOBIN CONC (BEAKER) (test 31.4 GM/DL 32.2-35.5 guxy=309) RED CELL DISTRIBUTION WIDTH (BEAKER) (test 13.8 % 11.7-14.4 kcwi=333) PLATELET COUNT (BEAKER) (test bsde=522) 192 K/CU MM 150-450 MEAN PLATELET VOLUME (BEAKER) (test umnk=380) 11.6 fL 9.4-12.3 NUCLEATED RED BLOOD CELLS (BEAKER) (test 0 /100 WBC 0-0 ayws=600) NEUTROPHILS RELATIVE PERCENT (BEAKER) (test 77 % kuhy=623) LYMPHOCYTES RELATIVE PERCENT (BEAKER) (test 16 % jlji=124) MONOCYTES RELATIVE PERCENT (BEAKER) (test 4 % vgyb=997) EOSINOPHILS RELATIVE PERCENT (BEAKER) (test 2 % jixp=712) BASOPHILS RELATIVE PERCENT (BEAKER) (test 0 % rkii=629) NEUTROPHILS ABSOLUTE COUNT (BEAKER) (test 5.82 K/ L 1.56-6.13 ooag=964) LYMPHOCYTES ABSOLUTE COUNT (BEAKER) (test 1.21 K/ L 1.18-3.74 njck=241) MONOCYTES ABSOLUTE COUNT (BEAKER) (test 0.31 K/ L 0.24-0.36 ozan=395) EOSINOPHILS ABSOLUTE COUNT (BEAKER) (test 0.15 K/ L 0.04-0.36 lakq=095) BASOPHILS ABSOLUTE COUNT (BEAKER) (test 0.01 K/ L 0.01-0.08 akqf=246) IMMATURE GRANULOCYTES-RELATIVE PERCENT (BEAKER) 1 % 0-1 (test apyb=1183) POCT-GLUCOSE [id number] 12:07:00 Test Item Value Reference Range Comments POC-GLUCOSE METER (BEAKER) 110 mg/dL 70-110 TESTED AT [address] (test nilx=5991) [facility] [address] CT, BRAIN, WITHOUT [id number] 06:55:00FINAL REPORT Clinical history : Decreased alertnessComparison [...] Verified Date/Time: 04/09/2017 06 :55:25 Reading Location: [address] Reading Room BASIC METABOLIC [id number] 05:57:00 Test Item Value Reference Range Comments SODIUM (BEAKER) (test 140 meq/L 136-145 xvib=276) POTASSIUM (BEAKER) (test 3.7 meq/L 3.5-5.1 tgxf=205) CHLORIDE (BEAKER) (test 103 meq/L 98-107 hzpl=075) CO2 (BEAKER) (test 29 meq/L 22-29 oyjr=494) BLOOD UREA NITROGEN 7 mg/dL 7-21 (BEAKER) (test pkbq=784) CREATININE (BEAKER) (test 0.56 mg/dL 0.57-1.25 qxjk=597) GLUCOSE RANDOM (BEAKER) 110 mg/dL 70-105 (test ttgy=112) CALCIUM (BEAKER) (test 8.7 mg/dL 8.4-10.2 vvwn=577) EGFR (BEAKER) (test 119 mL/min/1.73 sq m ESTIMATED GFR IS NOT hkdi=8231) ACCURATE CREATININE CLEARANCE IN PREDICTING GLOMERULAR FILTRATION RATE. ESTIMATED GFR IS NOT APPLICABLE FOR DIALYSIS PATIENTS. CBC W/PLT COUNT & AUTO [id number] 04:54:00 Test Item Value Reference Range Comments WHITE BLOOD CELL COUNT (BEAKER) (test zomq=518) 8.1 K/ L 3.5-10.5 RED BLOOD CELL COUNT (BEAKER) (test sejl=840) 4.07 M/ L 3.93-5.22 HEMOGLOBIN (BEAKER) (test viax=737) 11.6 GM/DL 11.2-15.7 HEMATOCRIT (BEAKER) (test xtej=163) 37.3 % 34.1-44.9 MEAN CORPUSCULAR VOLUME (BEAKER) (test ctdk=518) 91.6 fL 79.4-94.8 MEAN CORPUSCULAR HEMOGLOBIN (BEAKER) (test 28.5 pg 25.6-32.2 jcsg=514) MEAN CORPUSCULAR HEMOGLOBIN CONC (BEAKER) (test 31.1 GM/DL 32.2-35.5 qsan=056) RED CELL DISTRIBUTION WIDTH (BEAKER) (test 13.6 % 11.7-14.4 kqge=568) PLATELET COUNT (BEAKER) (test shco=130) 171 K/CU MM 150-450 MEAN PLATELET VOLUME (BEAKER) (test kvsx=476) 11.3 fL 9.4-12.3 NUCLEATED RED BLOOD CELLS (BEAKER) (test 0 /100 WBC 0-0 fpng=041) NEUTROPHILS RELATIVE PERCENT (BEAKER) (test 77 % ezba=955) LYMPHOCYTES RELATIVE PERCENT (BEAKER) (test 16 % puav=312) MONOCYTES RELATIVE PERCENT (BEAKER) (test 5 % ikix=882) EOSINOPHILS RELATIVE PERCENT (BEAKER) (test 2 % kwlw=005) BASOPHILS RELATIVE PERCENT (BEAKER) (test 0 % clwg=183) NEUTROPHILS ABSOLUTE COUNT (BEAKER) (test 6.20 K/ L 1.56-6.13 aueb=908) LYMPHOCYTES ABSOLUTE COUNT (BEAKER) (test 1.30 K/ L 1.18-3.74 xxly=029) MONOCYTES ABSOLUTE COUNT (BEAKER) (test 0.38 K/ L 0.24-0.36 pfuq=496) EOSINOPHILS ABSOLUTE COUNT (BEAKER) (test 0.14 K/ L 0.04-0.36 bpke=662) BASOPHILS ABSOLUTE COUNT (BEAKER) (test 0.01 K/ L 0.01-0.08 kmsh=391) IMMATURE GRANULOCYTES-RELATIVE PERCENT (BEAKER) 1 % 0-1 (test hzof=5444) POCT-GLUCOSE [id number] 01:34:00 Test Item Value Reference Range Comments POC-GLUCOSE METER (BEAKER) 92 mg/dL 70-110 TESTED AT [address] (test hxvw=4411) [place] [address] POCT-GLUCOSE [id number] 19:20:00 Test Item Value Reference Range Comments POC-GLUCOSE METER (BEAKER) 85 mg/dL 70-110 TESTED AT [address] (test pkld=4836) [place] [address] CT, BRAIN, WITHOUT [id number] 15:47:00FINAL REPORT CT head without contrast. Comparisons: [...] evidence of acute intracranial abnormality. Signed: Darren Tijerinaort Verified Date/Time: 04/08/2017 15:47:42 POCT- GLUCOSE [id number] 12:44:00 Test Item Value Reference Range Comments POC-GLUCOSE METER (BEAKER) 94 mg/dL 70-110 TESTED AT [facility] [address] [facility] (test kmba=1780) [facility] [address] BASIC METABOLIC [id number] 05:05:00 Test Item Value Reference Range Comments SODIUM (BEAKER) (test 142 meq/L 136-145 aosu=232) POTASSIUM (BEAKER) (test 4.0 meq/L 3.5-5.1 nhhr=036) CHLORIDE (BEAKER) (test 107 meq/L 98-107 rntv=013) CO2 (BEAKER) (test 27 meq/L 22-29 dgcu=329) BLOOD UREA NITROGEN 9 mg/dL 7-21 (BEAKER) (test umgx=178) CREATININE (BEAKER) (test 0.59 mg/dL 0.57-1.25 usef=799) GLUCOSE RANDOM (BEAKER) 105 mg/dL 70-105 (test awyp=273) CALCIUM (BEAKER) (test 8.7 mg/dL 8.4-10.2 lryg=706) EGFR (BEAKER) (test 112 mL/min/1.73 sq m ESTIMATED GFR IS NOT xhyj=1542) ACCURATE CREATININE CLEARANCE IN PREDICTING GLOMERULAR FILTRATION RATE. ESTIMATED GFR IS NOT APPLICABLE FOR DIALYSIS PATIENTS. CBC W/PLT COUNT & AUTO [id number] 04:28:00 Test Item Value Reference Range Comments WHITE BLOOD CELL COUNT (BEAKER) (test jaep=339) 7.1 K/ L 3.5-10.5 RED BLOOD CELL COUNT (BEAKER) (test qvfw=741) 3.90 M/ L 3.93-5.22 HEMOGLOBIN (BEAKER) (test dyna=055) 11.0 GM/DL 11.2-15.7 HEMATOCRIT (BEAKER) (test erqa=194) 36.6 % 34.1-44.9 MEAN CORPUSCULAR VOLUME (BEAKER) (test eyny=869) 93.8 fL 79.4-94.8 MEAN CORPUSCULAR HEMOGLOBIN (BEAKER) (test 28.2 pg 25.6-32.2 gaff=325) MEAN CORPUSCULAR HEMOGLOBIN CONC (BEAKER) (test 30.1 GM/DL 32.2-35.5 qnia=175) RED CELL DISTRIBUTION WIDTH (BEAKER) (test 14.2 % 11.7-14.4 fcpm=644) PLATELET COUNT (BEAKER) (test dgrk=317) 187 K/CU MM 150-450 MEAN PLATELET VOLUME (BEAKER) (test cucw=607) 10.9 fL 9.4-12.3 NUCLEATED RED BLOOD CELLS (BEAKER) (test 0 /100 WBC 0-0 nhto=805) NEUTROPHILS RELATIVE PERCENT (BEAKER) (test 73 % wnao=912) LYMPHOCYTES RELATIVE PERCENT (BEAKER) (test 19 % hqza=932) MONOCYTES RELATIVE PERCENT (BEAKER) (test 5 % nnlq=636) EOSINOPHILS RELATIVE PERCENT (BEAKER) (test 2 % rwml=899) BASOPHILS RELATIVE PERCENT (BEAKER) (test 0 % chkg=899) NEUTROPHILS ABSOLUTE COUNT (BEAKER) (test 5.22 K/ L 1.56-6.13 ketq=933) LYMPHOCYTES ABSOLUTE COUNT (BEAKER) (test 1.37 K/ L 1.18-3.74 qmxy=270) MONOCYTES ABSOLUTE COUNT (BEAKER) (test 0.34 K/ L 0.24-0.36 utpq=060) EOSINOPHILS ABSOLUTE COUNT (BEAKER) (test 0.13 K/ L 0.04-0.36 wfww=681) BASOPHILS ABSOLUTE COUNT (BEAKER) (test 0.01 K/ L 0.01-0.08 uoxh=501) IMMATURE GRANULOCYTES-RELATIVE PERCENT (BEAKER) 1 % 0-1 (test ppya=6044) POCT-GLUCOSE [id number] 17:32:00 Test Item Value Reference Range Comments POC-GLUCOSE METER (BEAKER) 90 mg/dL 70-110 TESTED AT [facility] [address] [facility] (test xkfj=6714) [facility] [address] POCT-GLUCOSE [id number] 12:02:00 Test Item Value Reference Range Comments POC-GLUCOSE METER (BEAKER) 91 mg/dL 70-110 TESTED AT [facility] [address] (test swel=8714) [facility] [address] EEG AWAKE AND [id number] 11:38:00Reason for exam:->R/O subclinical seizuresDATE OF [id number] OF REPORT: [id number]: [id number]: 17- 1801Start time: 09:54Stop time: 10:18ICD-10: G 93.40CPT Code: 34490 HISTORY: 41 y.o. female with history of morbid obesity, DM2 who presented today to OSH with R sided facial droop and LUE weakness . Patient was evaluated at OSH where patient was started with tPA after normal CT. Now with acute encephalopathy MEDICATIONS THAT COULD AFFECT EEG: TECHNICAL SUMMARY: This is a digital EEG recorded with 32 input channels on a [employer] system and then reviewed with bipolar and [...] additional EEG recordings. Javi Mae MDNeurophysiology Fellow [id number] Note: I personally reviewed this EEG record in its entirety and I agreewith the details of this report. Kitty Benson MD, PhDEpilepsy Attending 11 :38 AMCREATINE KINASE (CK), TOTAL AND [id number] 09:35:00 Test Item Value Reference Range Comments CREATINE KINASE TOTAL (BEAKER) (test cvkq=658) 52 U/L 29-200 CREATINE KINASE-MB (BEAKER) (test xkag=008) 1.2 ng/mL 0.0-6.6 CREATINE KINASE-MB INDEX (BEAKER) (test itit=811) 2.3 % CK-MB Reference Range:<6.7 Normal6.7-10.0 Borderline>10.0 AbnormalTROPONIN [id number] 09:31:00 Test Item Value Reference Range Comments TROPONIN I (BEAKER) (test btgh=449) < ng/mL 0.00-0.03 Troponin I (TnI) levels [...] failure, acidosis, acute neurological disease, and persistent tachyarrhythmia.[id number] 09:28:00 Test Item Value Reference Range Comments AMMONIA (BEAKER) (test kkhq=168) 34 mol/L 18-72 TSH/FREE T4 IF [id number] 04:28:00 Test Item Value Reference Range Comments THYROID STIMULATING HORMONE (BEAKER) (test 1.12 uIU/mL 0.35-4.94 opkq=327) VITAMIN B12 AND [id number] 04:28:00 Test Item Value Reference Range Comments VITAMIN B12 (BEAKER) (test bbok=406) 417 pg/mL 213-816 FOLATE (BEAKER) (test rqvg=237) 13.6 ng/mL >=7.0 CBC W/PLT COUNT & AUTO [id number] 03:27:00 Test Item Value Reference Range Comments WHITE BLOOD CELL COUNT (BEAKER) (test qhmj=509) 8.1 K/ L 3.5-10.5 RED BLOOD CELL COUNT (BEAKER) (test ucoz=224) 3.91 M/ L 3.93-5.22 HEMOGLOBIN (BEAKER) (test olef=064) 11.4 GM/DL 11.2-15.7 HEMATOCRIT (BEAKER) (test kjam=617) 35.8 % 34.1-44.9 MEAN CORPUSCULAR VOLUME (BEAKER) (test ahpu=415) 91.6 fL 79.4-94.8 MEAN CORPUSCULAR HEMOGLOBIN (BEAKER) (test 29.2 pg 25.6-32.2 btzk=022) MEAN CORPUSCULAR HEMOGLOBIN CONC (BEAKER) (test 31.8 GM/DL 32.2-35.5 cdht=061) RED CELL DISTRIBUTION WIDTH (BEAKER) (test 14.3 % 11.7-14.4 idof=053) PLATELET COUNT (BEAKER) (test pxsk=138) 166 K/CU MM 150-450 MEAN PLATELET VOLUME (BEAKER) (test wuvo=770) 12.4 fL 9.4-12.3 NUCLEATED RED BLOOD CELLS (BEAKER) (test 0 /100 WBC 0-0 qyad=057) NEUTROPHILS RELATIVE PERCENT (BEAKER) (test 78 % oydo=081) LYMPHOCYTES RELATIVE PERCENT (BEAKER) (test 16 % ictg=304) MONOCYTES RELATIVE PERCENT (BEAKER) (test 4 % fcqo=024) EOSINOPHILS RELATIVE PERCENT (BEAKER) (test 1 % vmcx=083) BASOPHILS RELATIVE PERCENT (BEAKER) (test 0 % djdr=214) NEUTROPHILS ABSOLUTE COUNT (BEAKER) (test 6.27 K/ L 1.56-6.13 klij=279) LYMPHOCYTES ABSOLUTE COUNT (BEAKER) (test 1.30 K/ L 1.18-3.74 vcdc=714) MONOCYTES ABSOLUTE COUNT (BEAKER) (test 0.32 K/ L 0.24-0.36 vloi=094) EOSINOPHILS ABSOLUTE COUNT (BEAKER) (test 0.09 K/ L 0.04-0.36 yhlk=577) BASOPHILS ABSOLUTE COUNT (BEAKER) (test 0.02 K/ L 0.01-0.08 ikrl=235) IMMATURE GRANULOCYTES-RELATIVE PERCENT (BEAKER) 1 % 0-1 (test tzoo=4699) CREATINE KINASE (CK), TOTAL AND [id number] 03:11:00 Test Item Value Reference Range Comments CREATINE KINASE TOTAL (BEAKER) (test gnzf=996) 71 U/L 29-200 CREATINE KINASE-MB (BEAKER) (test xrin=593) 1.5 ng/mL 0.0-6.6 CREATINE KINASE-MB INDEX (BEAKER) (test ahid=837) 2.1 % CK-MB Reference Range:<6.7 Normal6.7-10.0 Borderline>10.0 AbnormalFastingFastingTROPONIN [id number] 03:11:00 Test Item Value Reference Range Comments TROPONIN I (BEAKER) (test damf=167) < ng/mL 0.00-0.03 Troponin I (TnI) levels [...] acute neurological disease, and persistent tachyarrhythmia.FastingBASIC METABOLIC [id number] 03:04:00 Test Item Value Reference Range Comments SODIUM (BEAKER) (test 139 meq/L 136-145 bcgc=314) POTASSIUM (BEAKER) (test 4.3 meq/L 3.5-5.1 Specimen moderately bxwe=376) hemolyzed CHLORIDE (BEAKER) (test 107 meq/L 98-107 pilz=620) CO2 (BEAKER) (test 24 meq/L 22-29 fcgd=335) BLOOD UREA NITROGEN 12 mg/dL 7-21 (BEAKER) (test hbin=006) CREATININE (BEAKER) (test 0.68 mg/dL 0.57-1.25 Specimen moderately tjel=265) hemolyzed GLUCOSE RANDOM (BEAKER) 175 mg/dL 70-105 (test emzz=693) CALCIUM (BEAKER) (test 8.5 mg/dL 8.4-10.2 hhhx=700) EGFR (BEAKER) (test 95 mL/min/1.73 sq m ESTIMATED GFR IS NOT cskh=0493) ACCURATE CREATININE CLEARANCE IN PREDICTING GLOMERULAR FILTRATION RATE. ESTIMATED GFR IS NOT APPLICABLE FOR DIALYSIS PATIENTS. FastingLIPID [id number] 03:04:00 Test Item Value Reference Range Comments TRIGLYCERIDES (BEAKER) (test 99 mg/dL Specimen moderately rgke=517) hemolyzed CHOLESTEROL (BEAKER) (test 139 mg/dL Specimen moderately ctny=985) hemolyzed HDL CHOLESTEROL (BEAKER) (test 43 mg/dL xgds=779) LDL CHOLESTEROL CALCULATED 76 mg/dL (BEAKER) (test faob=971) Triglyceride Reference Range: Low Risk <150 Borderline 150- 199 High Risk 200-499 Very High Risk >=500Cholesterol Reference Range: Low Risk <200 Borderline 200-239 High Risk > 240HDL Cholesterol Reference Range: Low Risk >=60 High Risk <40LDL Cholesterol Reference Range: Optimal <100 Near Optimal 100-129 Borderline 130-159 High 160-189 Very High >=190 FastingHEPATIC FUNCTION [id number] 03:04:00 Test Item Value Reference Range Comments TOTAL PROTEIN (BEAKER) (test 7.2 gm/dL 6.0-8.3 Specimen moderately hemolyzed mjpg=977) ALBUMIN (BEAKER) (test 3.4 g/dL 3.5-5.0 Specimen moderately hemolyzed oiwg=4042) BILIRUBIN TOTAL (BEAKER) (test 0.3 mg/dL 0.2-1.2 Specimen moderately hemolyzed zllz=033) BILIRUBIN DIRECT (BEAKER) 0.1 mg/dL 0.1-0.5 Specimen moderately hemolyzed (test hoxp=632) ALKALINE PHOSPHATASE (BEAKER) 74 U/L 40-150 (test vgnr=115) AST (SGOT) (BEAKER) (test 37 U/L 5-34 Specimen moderately hemolyzed tpsy=520) ALT (SGPT) (BEAKER) (test 18 U/L 6-55 Specimen moderately lsfb=988) hemolyzed Fasting
[2017-10-26] MEDS ORDERED: NA CHLORIDE 0.9% 500 ML ONE (22:14)
[2017-10-26] MEDS ORDERED: NA CHLORIDE 0.9% 1,000 ML ONE (22:14)
[2017-10-26 22:25] LABS: Absolute Lymphocytes (CBC) 1.5 K/uL (0.7-4.9); Absolute Monocytes 0.4 K/uL (0.1-1.3); Absolute Neutrophil 6.5 K/uL (1.8-8.0); Basophils % 0.5 % (0-1.3); Eosinophils % 2.7 % (0-4.4); Hematocrit 36.6 % (36.0-45.0); Lymphocytes % 17.1 % (15.3-44.8); MCH 28.3 pg (27.0-35.0); MCV 86.3 fL (80-100); Monocytes % 4.6 % (3.3-12.3); RBC Red Blood Cell Count 4.24 M/uL (3.86-4.86)
[2017-10-26 22:29] LABS: Protime INR 1.04
[2017-10-26 22:44] LABS: Albumin 3.6 g/dL (3.2-5.5); Bilirubin Direct 0.1 mg/dL (0-0.2); Bilirubin Total 0.4 mg/dL (0.3-1.2); Magnesium 1.9 mg/dL (1.8-2.5); Protein, Total 7.5 g/dL (6.0-8.3)
[2017-10-26 22:46] LABS: CKMB Creatine Kinase MB 1.7 ng/ml (0.3-4.0)
[2017-10-26 22:49] LABS: Potassium 3.8 mEq/L (3.6-5.0)
[2017-10-26] MEDS ORDERED: ONDANSETRON 4 MG/2 ML VIAL ONE (23:56)
[2017-10-26] MEDS ORDERED: FENTANYL CITR 100 MCG/2 ML ONE (23:56)
--- NOTE | 2017-10-27 00:09 | ER ---
Nurse's Notes [facility] Name: Kelle Calderón Age: 42 yrs Sex: Female : 1975 Arrival Date: 10/26/2017 Time: 21:04 Bed 3 Private MD: Diagnosis: Abdominal tenderness-postoperative fluid collections, 5 cm;Type 2 diabetes mellitus;Lymphedema, not elsewhere classified;Obesity, unspecified Presentation: 10/26 21:11 Presenting complaint: Patient states: I had a hernia repair sx one week ago and I am la1 having pain in my abd and feeling "cold". Transition of care: patient was not received from another setting of care. Onset of symptoms was October 26, 2017. Initial Sepsis Screen: Does the patient meet any 2 criteria? No. Patient's initial sepsis screen is negative. Does the patient have a suspected source of infection? No. Patient's initial sepsis screen is negative. Care prior to arrival: None. 21:11 Method Of Arrival: Ambulatory la1 21:11 Acuity: SIMRAN 2 bb Triage Assessment: 21:53 General: Appears uncomfortable, Behavior is calm, cooperative. 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 la1 Historical: - Allergies: 21:10 warfarin; la1 - Home Meds: 22:11 albuterol sulfate 2.5 mg /3 mL (0.083 %) Inhl nebu twice a day [Active]; amlodipine 10 ak1 mg tab 1 tab once daily [Active]; aspirin 81 mg Oral TbEC 1 tab once daily [Active]; atorvastatin 40 mg Oral tab 1 tab once daily [Active]; gabapentin 100 mg Oral cap 3 caps 3 times per day [Active]; Linzess 145 mcg Oral cap 1 cap once daily [Active]; lisinopril 20 mg Oral tab 1 tab once daily [Active]; metformin 500 mg Oral tab 1 tab 2 times per day [Active]; pantoprazole 40 mg Oral TbEC 1 tab once daily [Active]; prednisone 5 mg Oral tab once daily [Active]; venlafaxine 75 mg Oral tab 2 times per day [Active]; - PMHx: 21:10 Asthma; bells palsy; Chronic pain; CVA; Depression; Diabetes - NIDDM; GERD; la1 Hypertension; Irritable bowel syndrome; Kidney stones; lymphedema; Migraines; Sleep Apnea; - Immunization history:: Adult Immunizations up to date. - Social history:: Smoking status: unknown. - Family history:: not pertinent. Screenin:53 Abuse screen: Denies threats or abuse. Denies injuries from another. Nutritional ak1 screening: No deficits noted. Tuberculosis screening: No symptoms or risk factors identified. Fall Risk None identified. Assessment: 22:06 General: Appears uncomfortable, obese, well groomed, Behavior is cooperative. Pain: ak1 Complains of pain in abdomen. Neuro: No deficits noted. Cardiovascular: Reports chest pain, since with cough. pt had sx 2 weeks Tuesday and traveled to [place] Tuesday and traveled back home Tuesday. Respiratory: Reports cough that is non-productive. GI: Bowel sounds present X 4 quads. Reports lower abdominal pain, upper abdominal pain. : No signs and/or symptoms were reported regarding the genitourinary system. EENT: No signs and/or symptoms were reported regarding the EENT system. Derm: No signs and/or symptoms reported regarding the dermatologic system. Musculoskeletal: No signs and/or symptoms reported regarding the musculoskeletal system. 23:59 Reassessment: Patient appears in no apparent distress at this time. No changes from ak1 previously documented assessment. Patient and/or family updated on plan of care and expected duration. Pain level reassessed. Patient is alert, oriented x 3, equal unlabored respirations, skin warm/dry/pink. Vital Signs: 21:12 BP 159 / 103; Pulse 99; Resp 22; Temp 98.4(TE); Pulse Ox 96% on R/A; Weight 161.48 kg; la1 Height 5 ft. 3 in. (160.02 cm); 21:59 BP 148 / 93; Pulse 82; Resp 20; Pulse Ox 95% on R/A; mt 22:58 BP 147 / 78; Pulse 87; Resp 19; Pulse Ox 99% on R/A; mt 23:58 BP 131 / 77; Pulse 81; Resp 20; Pulse Ox 94% on R/A; Pain 0/10; ak1 21:12 Body Mass Index 63.06 (161.48 kg, 160.02 cm) la1 ED Course: 21:04 Patient arrived in ED. ds1 21:12 Triage completed. la1 21:13 Arm band placed on right wrist. la1 21:53 Lory Thurston, RN is Primary Nurse. ak1 21:53 Patient has correct armband on for positive identification. Bed in low position. Call ak1 light in reach. Side rails up X 1. Adult w/ patient. gambling monitor on. Pulse ox on. NIBP on. 22:04 Grabiel Harper MD is Attending Physician. lisa 22:06 EKG done, by ED staff, reviewed by Grabiel Harper MD. Inserted saline lock: 20 gauge in ak1 right antecubital area, using aseptic technique. Blood collected. 22:29 Radiology exam delayed due to lab results not completed at this time. (BUN/Creatinine) nj test not completed at this time. 22:49 Ultrasound completed. Patient tolerated well. TO XRAY VIA STRETCHER. cy 22:50 US Extremity Venous W Compression Dwayne In Process Unspecified. EDMS 22:53 XRAY Chest (1 view) In Process Unspecified. EDMS 23:36 CT Chest For PE Angio In Process Unspecified. EDMS 23:36 CT Abd/Pelvis - W/Contrast In Process Unspecified. EDMS 10/27 00:06 Tj Flannery MD is Referral Physician. lisa 00:26 No provider procedures requiring assistance completed. IV discontinued, intact, mg2 bleeding controlled, No redness/swelling at site. Pressure dressing applied. 00:27 INCENTIVE SPIROMETRY Sent. ak1 Administered Medications: 10/26 22:18 Drug: NS 0.9% 500 ml Route: IV; Rate: bolus; Site: right antecubital; mg2 10/27 00:28 Follow up: IV Status: Completed infusion ak1 10/26 23:58 Drug: fentaNYL (PF) 25 mcg Route: IVP; Site: right antecubital; ak1 10/27 00:10 Follow up: Response: No adverse reaction ak1 10/26 23:58 Drug: Zofran 4 mg Route: IVP; Site: right antecubital; ak1 10/27 00:10 Follow up: Response: No adverse reaction ak1 00:11 Not Given (pt dishcarged prior to administration): NS 0.9% 1000 ml IV at 125 ml/hr ak1 continuous 00:25 Drug: fentaNYL (PF) 25 mcg Route: IVP; Site: right antecubital; mg2 00:25 Follow up: Response: No adverse reaction mg2 Outcome: 00:09 Discharge ordered by . lisa 00:27 Condition: improved ak1 00:27 Discharge instructions given to patient, family, Instructed on discharge instructions, follow up and referral plans. no drinking with medication, no driving heavy equipment, medication usage, Demonstrated understanding of instructions, follow-up care, medications, IS usage Prescriptions given X 1. 00:28 Discharged to home ambulatory, with family. ak1 00:35 Patient left the ED. ak1 Signatures: Dispatcher [employer] EDCT Grabiel Harper MD MD cha Sanford, Demi ds1 Christine Acosta RN RN bb Magdaleno Cifuentes RN RN la1 Lory Thurston RN RN ak1 Roland Pulido [facility] Joanie Harmon Michele RN RN mg2 Corrections: (The following items were deleted from the chart) 10/26 21:44 21:11 Acuity: SIMRAN 3 sonya augustin 10/27 00:27 00:26 Patient did not have IV access during this emergency room visit. mg2 ak1
--- NOTE | 2017-10-27 00:10 | EDPHYS ---
Physician Documentation [facility] Name: Kelle Calderón Age: 42 yrs Sex: Female : 1975 Arrival Date: 10/26/2017 Time: 21:04 Bed 3 Private MD: Grabiel Mai HPI: 10/26 22:13 This 42 yrs old Female presents to ER via Ambulatory with complaints of lisa Doesn't Feel Right. 22:13 The patient or guardian reports chest pain that is located primarily in the anterior lisa chest wall, bilaterally. Onset: today. The patient presents with abdominal pain in the upper abdomen, in the lower abdomen, abdominal distention in the upper abdomen, in the lower abdomen. Onset: The symptoms/episode began/occurred 2 day(s) ago. The pain does not radiate. Associated signs and symptoms: Pertinent positives: nausea. Modifying factors: The symptoms are alleviated by nothing, the symptoms are aggravated by movement. 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 - Hysterectomy la1 Historical: - Allergies: 21:10 warfarin; la1 - Home Meds: 22:11 albuterol sulfate 2.5 mg /3 mL (0.083 %) Inhl nebu twice a day [Active]; amlodipine 10 ak1 mg tab 1 tab once daily [Active]; aspirin 81 mg Oral TbEC 1 tab once daily [Active]; atorvastatin 40 mg Oral tab 1 tab once daily [Active]; gabapentin 100 mg Oral cap 3 caps 3 times per day [Active]; Linzess 145 mcg Oral cap 1 cap once daily [Active]; lisinopril 20 mg Oral tab 1 tab once daily [Active]; metformin 500 mg Oral tab 1 tab 2 times per day [Active]; pantoprazole 40 mg Oral TbEC 1 tab once daily [Active]; prednisone 5 mg Oral tab once daily [Active]; venlafaxine 75 mg Oral tab 2 times per day [Active]; - PMHx: 21:10 Asthma; bells palsy; Chronic pain; CVA; Depression; Diabetes - NIDDM; GERD; la1 Hypertension; Irritable bowel syndrome; Kidney stones; lymphedema; Migraines; Sleep Apnea; - Immunization history:: Adult Immunizations up to date. - Social history:: Smoking status: unknown. - Family history:: not pertinent. ROS: 22:13 Constitutional: Negative for fever, chills, and weight loss, Eyes: Negative for injury, lisa pain, redness, and discharge, ENT: Negative for injury, pain, and discharge, Neck: Negative for injury, pain, and swelling, Respiratory: Negative for shortness of breath, cough, wheezing, and pleuritic chest pain, Back: Negative for injury and pain, : Negative for injury, bleeding, discharge, and swelling, Skin: Negative for injury, rash, and discoloration, Neuro: Negative for headache, weakness, numbness, tingling, and seizure, Psych: Negative for depression, anxiety, suicide ideation, homicidal ideation, and hallucinations, Allergy/Immunology: Negative for hives, rash, and allergies, Endocrine: Negative for neck swelling, polydipsia, polyuria, polyphagia, and marked weight changes, Hematologic/Lymphatic: Negative for swollen nodes, abnormal bleeding, and unusual bruising. 22:13 Cardiovascular: Positive for chest pain. 22:13 Abdomen/GI: Positive for abdominal pain, nausea, abdominal distension, of the right upper quadrant, left upper quadrant, right lower quadrant and left lower quadrant. Exam: 22:13 Constitutional: This is a well developed, well nourished patient who is awake, alert, lisa and in no acute distress. Head/Face: Normocephalic, atraumatic. Eyes: Pupils equal round and reactive to light, extra-ocular motions intact. Lids and lashes normal. Conjunctiva and sclera are non-icteric and not injected. Cornea within normal limits. Periorbital areas with no swelling, redness, or edema. ENT: Nares patent. No nasal discharge, no septal abnormalities noted. Tympanic membranes are normal and external auditory canals are clear. Oropharynx with no redness, swelling, or masses, exudates, or evidence of obstruction, uvula midline. Mucous membranes moist. Neck: Trachea midline, no thyromegaly or masses palpated, and no cervical lymphadenopathy. Supple, full range of motion without nuchal rigidity, or vertebral point tenderness. No Meningismus. Chest/axilla: Normal chest wall appearance and motion. Nontender with no deformity. No lesions are appreciated. Cardiovascular: Regular rate and rhythm with a normal S1 and S2. No gallops, murmurs, or rubs. Normal PMI, no JVD. No pulse deficits. Respiratory: Lungs have equal breath sounds bilaterally, clear to auscultation and percussion. No rales, rhonchi or wheezes noted. No increased work of breathing, no retractions or nasal flaring. Back: No spinal tenderness. No costovertebral tenderness. Full range of motion. Female : Normal external genitalia. Skin: Warm, dry with normal turgor. Normal color with no rashes, no lesions, and no evidence of cellulitis. MS/ Extremity: Pulses equal, no cyanosis. Neurovascular intact. Full, normal range of motion. Neuro: Awake and alert, GCS 15, oriented to person, place, time, and situation. Cranial nerves II-XII grossly intact. Motor strength 5/5 in all extremities. Sensory grossly intact. Cerebellar exam normal. Normal gait. Psych: Awake, alert, with orientation to person, place and time. Behavior, mood, and affect are within normal limits. 22:13 Abdomen/GI: Inspection: distension, Bowel sounds: normal, Palpation: moderate abdominal tenderness, in all quadrants, Liver: no appreciated palpable abnormalities, Hernia: not appreciated, post op 1.5 weeks. Vital Signs: 21:12 BP 159 / 103; Pulse 99; Resp 22; Temp 98.4(TE); Pulse Ox 96% on R/A; Weight 161.48 kg; la1 Height 5 ft. 3 in. (160.02 cm); 21:59 BP 148 / 93; Pulse 82; Resp 20; Pulse Ox 95% on R/A; mt 22:58 BP 147 / 78; Pulse 87; Resp 19; Pulse Ox 99% on R/A; mt 23:58 BP 131 / 77; Pulse 81; Resp 20; Pulse Ox 94% on R/A; Pain 0/10; ak1 21:12 Body Mass Index 63.06 (161.48 kg, 160.02 cm) la1 MDM: 22:04 Patient medically screened. [facility] 22:16 Data reviewed: vital signs, nurses notes, lab test result(s), EKG, radiologic studies, [facility] CT scan, plain films, ultrasound. 10/26 22:05 Order name: Basic Metabolic Panel; Complete Time: 23:51 ak 10/26 22:05 Order name: BNP; Complete Time: 23:51 ak 10/26 22:05 Order name: CBC with Diff; Complete Time: 23:51 [facility] 10/26 22:05 Order name: Ckmb; Complete Time: 23:51 [facility] 10/26 22:05 Order name: CPK; Complete Time: 23:51 [facility] 10/26 22:05 Order name: LFT's; Complete Time: 23:51 [facility] 10/26 22:05 Order name: Magnesium; Complete Time: 23:51 [facility] 10/26 22:05 Order name: PT-INR; Complete Time: 23:51 [facility] 10/26 22:05 Order name: Ptt, Activated; Complete Time: 23:51 [facility] 10/26 22:05 Order name: Troponin (emerg Dept Use Only); Complete Time: 23:51 [facility] 10/26 22:11 Order name: Urine Culture [facility] 10/26 22:25 Order name: Lipase; Complete Time: 23:51 [facility] 10/26 23:59 Order name: Urine Dipstick--Ancillary (enter results) [facility] 10/26 22:05 Order name: XRAY Chest (1 view) [facility] 10/26 22:05 Order name: EKG; Complete Time: 22:05 [facility] 10/26 22:05 Order name: Cardiac monitoring; Complete Time: 22:05 [facility] 10/26 22:05 Order name: EKG - Nurse/Tech; Complete Time: 22:16 [facility] 10/26 22:05 Order name: IV Saline Lock; Complete Time: 22:05 [facility] 10/26 22:05 Order name: Labs collected and sent; Complete Time: 22:16 [facility] 10/26 22:11 Order name: CT Chest For PE Angio [facility] 10/26 22:11 Order name: CT Abd/Pelvis - W/Contrast [facility] 10/26 22:11 Order name: US Extremity Venous W Compression Dwayne [facility] 10/27 00:00 Order name: Urine Dipstick-Ancillary [facility] 10/27 00:13 Order name: INCENTIVE SPIROMETRY [facility] 10/26 22:05 Order name: O2 Per Protocol; Complete Time: 22:05 [facility] 10/26 22:05 Order name: O2 Sat Monitoring; Complete Time: 22:05 [facility] 10/26 22:05 Order name: Urine Dipstick-Ancillary (obtain specimen); Complete Time: 00:00 [facility] Administered Medications: 22:18 Drug: NS 0.9% 500 ml Route: IV; Rate: bolus; Site: right antecubital; mg2 10/27 00:28 Follow up: IV Status: Completed infusion ak1 10/26 23:58 Drug: fentaNYL (PF) 25 mcg Route: IVP; Site: right antecubital; ak1 10/27 00:10 Follow up: Response: No adverse reaction ak1 10/26 23:58 Drug: Zofran 4 mg Route: IVP; Site: right antecubital; ak1 10/27 00:10 Follow up: Response: No adverse reaction ak1 00:11 Not Given (pt dishcarged prior to administration): NS 0.9% 1000 ml IV at 125 ml/hr ak1 continuous 00:25 Drug: fentaNYL (PF) 25 mcg Route: IVP; Site: right antecubital; mg2 00:25 Follow up: Response: No adverse reaction mg2 Disposition: 10/27/17 00:09 Discharged to Home. Impression: Abdominal tenderness - postoperative fluid collections, 5 cm, Type 2 diabetes mellitus, Lymphedema, not elsewhere classified, Obesity, unspecified. - Condition is Stable. - Discharge Instructions: Abdominal Pain, Adult, Type 2 Diabetes Mellitus, Adult, Obesity, Abdominal Pain, Adult, [id number], Type 2 Diabetes Mellitus, Adult, [id number]-eu-Piob. - Prescriptions for Tylenol- Codeine #3 300-30 mg Oral Tablet - take 2 tablets by ORAL route every 6 hours As needed; 20 tablet. - Medication Reconciliation Form, Thank You Letter, Antibiotic Education, Prescription Opioid Use form. - Follow up: Tj Flannery MD; When: 1 - 2 days; Reason: Recheck today's complaints, Continuance of care, Re-evaluation by your physician. - Problem is new. - Symptoms have improved. Signatures: Dispatcher [employer] [facility] Grabiel Harper MD MD cha Attema, Lee RN RN la1 Lory Thurston RN RN ak1 Norberto Neil, JOSEY RN mg2 Corrections: (The following items were deleted from the chart) 10/26 22:25 22:12 LIPASE+C.LAB.BRZ ordered. [facility] 10/27 00:35 00:09 10/27/2017 00:09 Discharged to Home. Impression: Abdominal tenderness - ak1 postoperative fluid collections, 5 cm; Type 2 diabetes mellitus; Lymphedema, not elsewhere classified; Obesity, unspecified. Condition is Stable. Forms are Medication Reconciliation Form, Thank You Letter, Antibiotic Education, Prescription Opioid Use. Follow up: Tj Flannery; When: 1 - 2 days; Reason: Recheck today's complaints, Continuance of care, Re-evaluation by your physician. Problem is new. Symptoms have improved. lisa
[2017-10-27] MEDS ORDERED: FENTANYL CITR 100 MCG/2 ML ONE (00:21)
[2017-10-27 00:56] LABS: Urine Blood TRACE (NEG); Urine Glucose NEGATIVE (NEG); Urine Protein NEGATIVE (NEG); Urine Specific Gravity 1.015 (1.005-1.030); Urine pH 7.5 (5.0-7.0)
[2017-10-27 01:02] VITALS: TEMP 98.4
[2017-10-27 01:05] VITALS: BP 131/77; O2SAT 94
--- NOTE | 2017-10-27 08:20 | RAD REPORT ---
EXAM DESCRIPTION: VAS - Extrem Venous W Compress Dwayne - 10/26/2017 10:49 pm CLINICAL HISTORY: Bilateral leg edema and swelling. COMPARISON: None. TECHNIQUE: Real-time sonographic interrogation of the left and right lower extremity deep venous sys tems was performed. FINDINGS: Normal compressibility, flow augmentation, phasic flow and spontaneous flow is identified in both the left and right lower extremity deep venous systems. IMPRESSION: No sonographic evidence of left or right lower extremity deep venous thrombosis.
--- NOTE | 2017-10-27 08:31 | RAD REPORT ---
EXAM DESCRIPTION: CTAbdomen Pelvis W Contrast - 10/26/2017 11:35 pm CLINICAL HISTORY: Abdominal pain. COMPARISON: 06/23/2017, 02/03/2017 TECHNIQUE: Biphasic CT imaging of the abdomen and pelvis was performed with 100 ml non-ionic IV cont rast. All CT scans are performed using dose optimization technique as appropriate and may include automated exposure control or mA/KV adjustment according to patient size. FINDINGS: The lung bases are clear. The liver demonstrates diffuse fatty infiltration. The spleen, pancreas, adrenal glands and kidneys a re within normal limits. No bowel obstruction, free air, free fluid or abscess. 5 cm fluid collection deep to the abdominal wa ll at the site of surgery. 4.5 cm collection is present adjacent to the umbilicus within the subcutan eous fat. These are most compatible with postoperative fluid collections. These collections do not sagastume ve the typical CT features of a an abscess. The appendix is not identified as a discrete structure, h owever, no secondary findings of appendicitis are identified. No evidence of significant lymphadeno nu. No suspicious bony findings. IMPRESSION: Postoperative fluid collections in the umbilical region likely related to recent hernia repair. These do not have the CT appearance of abscesses at this time. Fatty liver.
--- NOTE | 2017-10-27 08:35 | RAD REPORT ---
EXAM DESCRIPTION: CT - Chest For Pe Angio - 10/26/2017 11:35 pm CLINICAL HISTORY: Chest pain. Recent surgery. COMPARISON: None. TECHNIQUE: CT angiogram of the pulmonary arteries was performed with MIP. All CT scans are performed using dose optimization technique as appropriate and may include automated exposure control or mA/KV adjustment according to patient size. FINDINGS: No evidence of pulmonary thromboembolism. No acute aortic finding demonstrated. The lungs are clear. No significant pericardial or pleural fluid. No concerning bony finding. Cholecystectomy clips. IMPRESSION: No evidence of pulmonary thromboembolism. No acute lung findings.
--- NOTE | 2017-10-27 08:36 | RAD REPORT ---
EXAM DESCRIPTION: RAD - Chest Single View - 10/26/2017 10:54 pm CLINICAL HISTORY: Chest pain. COMPARISON: 10/13/2017 FINDINGS: Portable technique limits examination quality. The lungs are mildly underinflated but grossly clear. The heart is normal in size. No displaced fract ures. IMPRESSION: No acute intrathoracic process suspected.
--- NOTE | 2017-10-27 16:23 | EKG ---
Test Date: 2017-10-26 Test Time: 22:11:47 [employer] Supervisor: GISELE MEASUREMENT RESULTS: Intervals: Rate: 84 OH: 118 QRSD: 86 QT: 370 QTc: 437 [place]: P: 34 OH: 118 QRS: 53 T: 38 INTERPRETIVE STATEMENTS: Normal sinus rhythm Nonspecific T wave abnormality Abnormal ECG Compared to ECG 10/13/2017 11:42:41 T-wave abnormality now present Electronically Signed On 10-27-17 16:20:01 CDT by Rodney Beltran
== END 2017-10-27 00:35 | disposition home or self-care (01) ==
LOC: ER 21:03
DX: I89.0 Lymphedema, not elsewhere classified (principal); T81.89XA Other complications of procedures, not elsewhere classified, initial encounter; E11.9 Type 2 diabetes mellitus without complications; E66.9 Obesity, unspecified; I10 Essential (primary) hypertension; J45.909 Unspecified asthma, uncomplicated; F32.9 Major depressive disorder, single episode, unspecified; Z88.8 Allergy status to other drugs, medicaments and biological substances; Z79.82 Long term (current) use of aspirin; Z98.890 Other specified postprocedural states
CPT/HCPCS: 36415; 71045; 71275; 74177; 80048; 80076; 81003; 82550; 82553; 83690; 83735; 83880; 84484; 85025; 85610; 85730; 87086; 87088; 93005; 93970; 96361; 96374; 96375; 99285; J2405; J3010 ×2; J7030; Q9967

== ENCOUNTER 2017-12-07 17:29 | Emergency (ER) | payer OTHER ==
--- OUTSIDE RECORDS SUMMARY | 2017-12-07 17:32 | XMS REPORT ---
:1975 [facility] Address [address] [place] [address] Care Team Providers Name Role Phone MICKEY [...] 70-110 TESTED AT [facility] [address] [facility] sdtr=[phone]) [facility] [address] [id number] 08:58:00 Test Item Value Reference Range Comments PHOSPHORUS (BEAKER) (test luib=677) 4.4 mg/dL 2.3-4.7 [id number] 08:58:00 Test Item Value Reference Range Comments MAGNESIUM (BEAKER) (test phdi=784) 2.3 mg/dL 1.6-2.6 BASIC METABOLIC [id number] 08:58:00 Test Item Value Reference Range Comments SODIUM (BEAKER) (test 142 meq/L 136-145 nfar=613) POTASSIUM (BEAKER) (test 3.9 meq/L 3.5-5.1 zsei=616) CHLORIDE (BEAKER) (test 108 meq/L 98-107 khmz=215) CO2 (BEAKER) (test 26 meq/L 22-29 tmwn=275) BLOOD UREA NITROGEN 16 mg/dL 7-21 (BEAKER) (test aktl=975) CREATININE (BEAKER) (test 0.69 mg/dL 0.57-1.25 qrfl=389) GLUCOSE RANDOM (BEAKER) 86 mg/dL 70-105 (test dzcr=084) CALCIUM (BEAKER) (test 8.6 mg/dL 8.4-10.2 okpn=154) EGFR (BEAKER) (test 94 mL/min/1.73 sq m ESTIMATED GFR IS NOT rsup=4438) ACCURATE CREATININE CLEARANCE IN PREDICTING GLOMERULAR FILTRATION RATE. ESTIMATED GFR IS NOT APPLICABLE FOR DIALYSIS PATIENTS. HEPATIC FUNCTION [id number] 08:58:00 Test Item Value Reference Range Comments TOTAL PROTEIN (BEAKER) (test gclv=317) 6.8 gm/dL 6.0-8.3 ALBUMIN (BEAKER) (test ngzb=1116) 3.6 g/dL 3.5-5.0 BILIRUBIN TOTAL (BEAKER) (test wzjz=351) 0.4 mg/dL 0.2-1.2 BILIRUBIN DIRECT (BEAKER) (test qjcy=039) 0.2 mg/dL 0.1-0.5 ALKALINE PHOSPHATASE (BEAKER) (test hydo=887) 59 U/L 40-150 AST (SGOT) (BEAKER) (test gsfe=291) 24 U/L 5-34 ALT (SGPT) (BEAKER) (test qeqz=312) 17 U/L 6-55 POCT-GLUCOSE [id number] 08:20:00 Test Item Value Reference Range Comments POC-GLUCOSE METER (BEAKER) 143 mg/dL 70-110 TESTED AT [address] (test egzo=4330) [facility] [address] PROTHROMBIN [id number] 05:55:00 Test Item Value Reference Range Comments PROTIME (BEAKER) (test hlmy=138) 13.4 seconds 11.7-14.7 INR (BEAKER) (test tthe=119) 1.0 <=5.9 RECOMMENDED COUMADIN/WARFARIN INR THERAPY RANGESSTANDARD DOSE: 2.0 - 3.0 Includes: PROPHYLAXIS forvenous thrombosis, systemic embolization; TREATMENT for venous thrombosis and/or pulmonary embolus.HIGH RISK: Target INR is 2.5-3.5 for patients with mechanical heart valves.POCT-GLUCOSE [id number] 20:32:00 Test Item Value Reference Range Comments POC-GLUCOSE METER (BEAKER) 90 mg/dL 70-110 TESTED AT [address] (test dgvg=1922) [facility] [address] POCT-GLUCOSE [id number] 16:47:00 Test Item Value Reference Range Comments POC-GLUCOSE METER (BEAKER) 79 mg/dL 70-110 TESTED AT [address] (test hyzl=4199) [place] [id number] POCT-GLUCOSE [id number] 07:47:00 Test Item Value Reference Range Comments POC-GLUCOSE METER (BEAKER) 97 mg/dL 70-110 TESTED AT [address] (test dqso=9485) [place] [address] TROPONIN [id number] 07:02:00 Test Item Value Reference Range Comments TROPONIN I (BEAKER) (test puqv=399) < ng/mL 0.00-0.03 Troponin I (TnI) levels [...] failure, acidosis, acute neurological disease, and persistent tachyarrhythmia.[id number] 07:00:00 Test Item Value Reference Range Comments PHOSPHORUS (BEAKER) (test cqwr=524) 5.0 mg/dL 2.3-4.7 [id number] 07:00:00 Test Item Value Reference Range Comments MAGNESIUM (BEAKER) (test stpp=274) 1.9 mg/dL 1.6-2.6 BASIC METABOLIC [id number] 07:00:00 Test Item Value Reference Range Comments SODIUM (BEAKER) (test 141 meq/L 136-145 gkgz=242) POTASSIUM (BEAKER) (test 4.0 meq/L 3.5-5.1 jfke=549) CHLORIDE (BEAKER) (test 106 meq/L 98-107 mntq=106) CO2 (BEAKER) (test 25 meq/L 22-29 jgeg=804) BLOOD UREA NITROGEN 14 mg/dL 7-21 (BEAKER) (test wwpr=853) CREATININE (BEAKER) (test 0.72 mg/dL 0.57-1.25 ceaa=132) GLUCOSE RANDOM (BEAKER) 109 mg/dL 70-105 (test bxih=226) CALCIUM (BEAKER) (test 9.5 mg/dL 8.4-10.2 jbbb=322) EGFR (BEAKER) (test 89 mL/min/1.73 sq m ESTIMATED GFR IS NOT qwps=5074) ACCURATE CREATININE CLEARANCE IN PREDICTING GLOMERULAR FILTRATION RATE. ESTIMATED GFR IS NOT APPLICABLE FOR DIALYSIS PATIENTS. HEPATIC FUNCTION [id number] 07:00:00 Test Item Value Reference Range Comments TOTAL PROTEIN (BEAKER) (test zdzk=547) 7.7 gm/dL 6.0-8.3 ALBUMIN (BEAKER) (test vpui=2451) 4.0 g/dL 3.5-5.0 BILIRUBIN TOTAL (BEAKER) (test jnvu=456) 0.5 mg/dL 0.2-1.2 BILIRUBIN DIRECT (BEAKER) (test abhh=449) 0.2 mg/dL 0.1-0.5 ALKALINE PHOSPHATASE (BEAKER) (test oydd=193) 69 U/L 40-150 AST (SGOT) (BEAKER) (test ytza=526) 34 U/L 5-34 ALT (SGPT) (BEAKER) (test njwk=892) 21 U/L 6-55 PROTHROMBIN [id number] 06:31:00 Test Item Value Reference Range Comments PROTIME (BEAKER) (test hokz=684) 14.0 seconds 11.7-14.7 INR (BEAKER) (test rmzq=061) 1.1 <=5.9 RECOMMENDED COUMADIN/WARFARIN INR THERAPY RANGESSTANDARD DOSE: 2.0 - 3.0 Includes: PROPHYLAXIS forvenous thrombosis, systemic embolization; TREATMENT for venous thrombosis and/or pulmonary embolus.HIGH RISK: Target INR is 2.5-3.5 for patients with mechanical heart valves.CBC W/PLT COUNT & AUTO [id number] 06:28:00 Test Item Value Reference Range Comments WHITE BLOOD CELL COUNT (BEAKER) (test kjfg=312) 8.9 K/ L 3.5-10.5 RED BLOOD CELL COUNT (BEAKER) (test gqro=529) 4.55 M/ L 3.93-5.22 HEMOGLOBIN (BEAKER) (test gnaw=068) 13.0 GM/DL 11.2-15.7 HEMATOCRIT (BEAKER) (test iahw=506) 42.0 % 34.1-44.9 MEAN CORPUSCULAR VOLUME (BEAKER) (test oiky=874) 92.3 fL 79.4-94.8 MEAN CORPUSCULAR HEMOGLOBIN (BEAKER) (test 28.6 pg 25.6-32.2 dmxs=610) MEAN CORPUSCULAR HEMOGLOBIN CONC (BEAKER) (test 31.0 GM/DL 32.2-35.5 arik=318) RED CELL DISTRIBUTION WIDTH (BEAKER) (test 13.9 % 11.7-14.4 lwoa=020) PLATELET COUNT (BEAKER) (test udld=952) 202 K/CU MM 150-450 MEAN PLATELET VOLUME (BEAKER) (test reyy=124) 12.6 fL 9.4-12.3 NUCLEATED RED BLOOD CELLS (BEAKER) (test 0 /100 WBC 0-0 odbu=679) NEUTROPHILS RELATIVE PERCENT (BEAKER) (test 70 % aort=927) LYMPHOCYTES RELATIVE PERCENT (BEAKER) (test 23 % ewzy=958) MONOCYTES RELATIVE PERCENT (BEAKER) (test 4 % ashz=283) EOSINOPHILS RELATIVE PERCENT (BEAKER) (test 3 % cgtm=594) BASOPHILS RELATIVE PERCENT (BEAKER) (test 0 % fpmm=611) NEUTROPHILS ABSOLUTE COUNT (BEAKER) (test 6.19 K/ L 1.56-6.13 ajam=385) LYMPHOCYTES ABSOLUTE COUNT (BEAKER) (test 2.03 K/ L 1.18-3.74 boww=993) MONOCYTES ABSOLUTE COUNT (BEAKER) (test 0.37 K/ L 0.24-0.36 uulw=914) EOSINOPHILS ABSOLUTE COUNT (BEAKER) (test 0.24 K/ L 0.04-0.36 hjqa=604) BASOPHILS ABSOLUTE COUNT (BEAKER) (test 0.02 K/ L 0.01-0.08 zctr=001) IMMATURE GRANULOCYTES-RELATIVE PERCENT (BEAKER) 0 % 0-1 (test zero=3204) CREATINE KINASE (CK), TOTAL AND [id number] 01:39:00 Test Item Value Reference Range Comments CREATINE KINASE TOTAL (BEAKER) (test wlrz=848) 55 U/L 29-200 CREATINE KINASE-MB (BEAKER) (test xyip=160) 1.1 ng/mL 0.0-6.6 CREATINE KINASE-MB INDEX (BEAKER) (test iaif=443) 2.0 % CK-MB Reference Range:<6.7 Normal6.7-10.0 Borderline>10.0 AbnormalTROPONIN [id number] 01:39:00 Test Item Value Reference Range Comments TROPONIN I (BEAKER) (test jwvb=052) < ng/mL 0.00-0.03 Troponin I (TnI) levels [...] acidosis, acute neurological disease, and persistent tachyarrhythmia.POCT-GLUCOSE [id number] 12:39:00 Test Item Value Reference Range Comments POC-GLUCOSE METER (BEAKER) 80 mg/dL 70-110 TESTED AT [address] (test geml=8977) [place] [address] POCT-GLUCOSE [id number] 07:07:00 Test Item Value Reference Range Comments POC-GLUCOSE METER (BEAKER) 100 mg/dL 70-110 TESTED AT [address] (test akev=8194) [place] [address] POCT-GLUCOSE [id number] 21:12:00 Test Item Value Reference Range Comments POC-GLUCOSE METER (BEAKER) 138 mg/dL 70-110 TESTED AT [address] (test seyq=9115) [place] [address] POCT-GLUCOSE [id number] 12:04:00 Test Item Value Reference Range Comments POC-GLUCOSE METER (BEAKER) 113 mg/dL 70-110 TESTED AT [address] (test fpmc=1141) [place] [id number] BASIC METABOLIC [id number] 04:26:00 Test Item Value Reference Range Comments SODIUM (BEAKER) (test 141 meq/L 136-145 cpxi=415) POTASSIUM (BEAKER) (test 4.2 meq/L 3.5-5.1 Specimen moderately clwy=559) hemolyzed CHLORIDE (BEAKER) (test 107 meq/L 98-107 thni=842) CO2 (BEAKER) (test 25 meq/L 22-29 pjbc=606) BLOOD UREA NITROGEN 13 mg/dL 7-21 (BEAKER) (test wjqx=375) CREATININE (BEAKER) (test 0.61 mg/dL 0.57-1.25 Specimen moderately pbra=813) hemolyzed GLUCOSE RANDOM (BEAKER) 93 mg/dL 70-105 (test chsu=066) CALCIUM (BEAKER) (test 9.0 mg/dL 8.4-10.2 txul=659) EGFR (BEAKER) (test 108 mL/min/1.73 sq m ESTIMATED GFR IS NOT nqto=5828) ACCURATE CREATININE CLEARANCE IN PREDICTING GLOMERULAR FILTRATION RATE. ESTIMATED GFR IS NOT APPLICABLE FOR DIALYSIS PATIENTS. CBC W/PLT COUNT & AUTO [id number] 04:02:00 Test Item Value Reference Range Comments WHITE BLOOD CELL COUNT (BEAKER) (test ojgs=128) 8.4 K/ L 3.5-10.5 RED BLOOD CELL COUNT (BEAKER) (test tqms=066) 4.15 M/ L 3.93-5.22 HEMOGLOBIN (BEAKER) (test erop=262) 11.8 GM/DL 11.2-15.7 HEMATOCRIT (BEAKER) (test eeyp=775) 37.9 % 34.1-44.9 MEAN CORPUSCULAR VOLUME (BEAKER) (test qzzk=885) 91.3 fL 79.4-94.8 MEAN CORPUSCULAR HEMOGLOBIN (BEAKER) (test 28.4 pg 25.6-32.2 lpye=578) MEAN CORPUSCULAR HEMOGLOBIN CONC (BEAKER) (test 31.1 GM/DL 32.2-35.5 zvdf=890) RED CELL DISTRIBUTION WIDTH (BEAKER) (test 14.1 % 11.7-14.4 nqcx=726) PLATELET COUNT (BEAKER) (test rzvs=898) 200 K/CU MM 150-450 MEAN PLATELET VOLUME (BEAKER) (test jned=191) 11.9 fL 9.4-12.3 NUCLEATED RED BLOOD CELLS (BEAKER) (test 0 /100 WBC 0-0 xyhs=073) NEUTROPHILS RELATIVE PERCENT (BEAKER) (test 73 % bnhd=080) LYMPHOCYTES RELATIVE PERCENT (BEAKER) (test 19 % anof=913) MONOCYTES RELATIVE PERCENT (BEAKER) (test 5 % uncy=661) EOSINOPHILS RELATIVE PERCENT (BEAKER) (test 3 % wihc=562) BASOPHILS RELATIVE PERCENT (BEAKER) (test 0 % tibv=587) NEUTROPHILS ABSOLUTE COUNT (BEAKER) (test 6.08 K/ L 1.56-6.13 kvoo=665) LYMPHOCYTES ABSOLUTE COUNT (BEAKER) (test 1.62 K/ L 1.18-3.74 hzcb=660) MONOCYTES ABSOLUTE COUNT (BEAKER) (test 0.39 K/ L 0.24-0.36 gtmh=900) EOSINOPHILS ABSOLUTE COUNT (BEAKER) (test 0.24 K/ L 0.04-0.36 rdeg=747) BASOPHILS ABSOLUTE COUNT (BEAKER) (test 0.01 K/ L 0.01-0.08 rmru=886) IMMATURE GRANULOCYTES-RELATIVE PERCENT (BEAKER) 1 % 0-1 (test runt=0798) CLOSTRIDIUM DIFFICILE TOXIN [id number] 13:44:00 Test Item Value Reference Range Comments CLOSTRIDIUM DIFFICILE TOXIN, PCR (BEAKER) (test Not Detected Not Detected sntw=9843) This qualitative real-time polymerase chain reaction assay [...] a positive result is not recommended.CT, CTANGIO [id number] 06:59:00Addendum BeginsREPORT STATUS:A Three-dimensional post intravenous contrast images of the cerebral vasculature were created on a free standing workstation for better visualization of cerebral vascular anatomy and pathology. Signed: Skip Gardner MDReport Verified Date/Time: 04/12/2017 06:59:20 Reading Location: [place] [id number] Ortho Consult Reading RoomAddendum EndsFINAL REPORT Noncontrast [...] MDReport Verified Date/Time: 04/07/2017 01:12:44 Reading Location: [facility] [id number] Ortho Consult Reading Room BASIC METABOLIC [id number] 05:37:00 Test Item Value Reference Range Comments SODIUM (BEAKER) (test 142 meq/L 136-145 jiux=441) POTASSIUM (BEAKER) (test 3.7 meq/L 3.5-5.1 Specimen slightly zpvl=966) hemolyzed CHLORIDE (BEAKER) (test 105 meq/L 98-107 jrff=166) CO2 (BEAKER) (test 27 meq/L 22-29 ycqh=046) BLOOD UREA NITROGEN 11 mg/dL 7-21 (BEAKER) (test qxcl=362) CREATININE (BEAKER) (test 0.66 mg/dL 0.57-1.25 Specimen slightly duda=469) hemolyzed GLUCOSE RANDOM (BEAKER) 97 mg/dL 70-105 (test qooh=731) CALCIUM (BEAKER) (test 9.2 mg/dL 8.4-10.2 mktc=475) EGFR (BEAKER) (test 99 mL/min/1.73 sq m ESTIMATED GFR IS NOT jdqa=5328) ACCURATE CREATININE CLEARANCE IN PREDICTING GLOMERULAR FILTRATION RATE. ESTIMATED GFR IS NOT APPLICABLE FOR DIALYSIS PATIENTS. CBC (HEMOGRAM ONLY)2017-04-12 05:17:00 Test Item Value Reference Range Comments WHITE BLOOD CELL COUNT (BEAKER) (test bdjt=678) 7.7 K/ L 3.5-10.5 RED BLOOD CELL COUNT (BEAKER) (test vjex=812) 4.17 M/ L 3.93-5.22 HEMOGLOBIN (BEAKER) (test pqzt=478) 12.0 GM/DL 11.2-15.7 HEMATOCRIT (BEAKER) (test grlk=664) 38.0 % 34.1-44.9 MEAN CORPUSCULAR VOLUME (BEAKER) (test inti=860) 91.1 fL 79.4-94.8 MEAN CORPUSCULAR HEMOGLOBIN (BEAKER) (test 28.8 pg 25.6-32.2 tndc=713) MEAN CORPUSCULAR HEMOGLOBIN CONC (BEAKER) (test 31.6 GM/DL 32.2-35.5 vfiw=880) RED CELL DISTRIBUTION WIDTH (BEAKER) (test 14.0 % 11.7-14.4 qfha=367) PLATELET COUNT (BEAKER) (test wwjb=509) 219 K/CU MM 150-450 MEAN PLATELET VOLUME (BEAKER) (test qxsp=566) 11.6 fL 9.4-12.3 NUCLEATED RED BLOOD CELLS (BEAKER) (test 0 /100 WBC 0-0 erqg=631) POCT-GLUCOSE [id number] 17:55:00 Test Item Value Reference Range Comments POC-GLUCOSE METER (BEAKER) 111 mg/dL 70-110 TESTED AT [address] (test ewcy=5952) [place] [address] POCT-GLUCOSE [id number] 12:02:00 Test Item Value Reference Range Comments POC-GLUCOSE METER (BEAKER) 100 mg/dL 70-110 TESTED AT [address] (test yhbi=9486) [place] [address] POCT-GLUCOSE [id number] 07:50:00 Test Item Value Reference Range Comments POC-GLUCOSE METER (BEAKER) 110 mg/dL 70-110 TESTED AT [address] (test rjzh=5900) [place] [address] POCT-GLUCOSE [id number] 16:56:00 Test Item Value Reference Range Comments POC-GLUCOSE METER (BEAKER) 104 mg/dL 70-110 TESTED AT [address] (test jcwd=7853) [place] [address] POCT-GLUCOSE [id number] 12:22:00 Test Item Value Reference Range Comments POC-GLUCOSE METER (BEAKER) 84 mg/dL 70-110 TESTED AT [address] (test wttr=3353) [place] [address] HEMOGLOBIN [id number] 08:46:00 Test Item Value Reference Range Comments HEMOGLOBIN A1C (BEAKER) (test vlse=668) 6.2 % 4.3-6.1 BASIC METABOLIC [id number] 06:42:00 Test Item Value Reference Range Comments SODIUM (BEAKER) (test 142 meq/L 136-145 febj=043) POTASSIUM (BEAKER) (test 4.1 meq/L 3.5-5.1 Specimen slightly texe=343) hemolyzed CHLORIDE (BEAKER) (test 104 meq/L 98-107 fjyx=428) CO2 (BEAKER) (test 28 meq/L 22-29 hoah=840) BLOOD UREA NITROGEN 9 mg/dL 7-21 (BEAKER) (test dolb=195) CREATININE (BEAKER) (test 0.60 mg/dL 0.57-1.25 Specimen slightly vdan=313) hemolyzed GLUCOSE RANDOM (BEAKER) 96 mg/dL 70-105 (test eqav=637) CALCIUM (BEAKER) (test 9.1 mg/dL 8.4-10.2 aola=509) EGFR (BEAKER) (test 110 mL/min/1.73 sq m ESTIMATED GFR IS NOT fmbg=3567) ACCURATE CREATININE CLEARANCE IN PREDICTING GLOMERULAR FILTRATION RATE. ESTIMATED GFR IS NOT APPLICABLE FOR DIALYSIS PATIENTS. CBC W/PLT COUNT & AUTO [id number] 06:19:00 Test Item Value Reference Range Comments WHITE BLOOD CELL COUNT (BEAKER) (test fcqf=398) 7.5 K/ L 3.5-10.5 RED BLOOD CELL COUNT (BEAKER) (test uqts=475) 4.12 M/ L 3.93-5.22 HEMOGLOBIN (BEAKER) (test cukm=420) 11.8 GM/DL 11.2-15.7 HEMATOCRIT (BEAKER) (test mscf=303) 37.6 % 34.1-44.9 MEAN CORPUSCULAR VOLUME (BEAKER) (test vsqp=685) 91.3 fL 79.4-94.8 MEAN CORPUSCULAR HEMOGLOBIN (BEAKER) (test 28.6 pg 25.6-32.2 sdcv=687) MEAN CORPUSCULAR HEMOGLOBIN CONC (BEAKER) (test 31.4 GM/DL 32.2-35.5 cyfw=535) RED CELL DISTRIBUTION WIDTH (BEAKER) (test 13.8 % 11.7-14.4 ftzj=325) PLATELET COUNT (BEAKER) (test wjaq=749) 192 K/CU MM 150-450 MEAN PLATELET VOLUME (BEAKER) (test vgaa=175) 11.6 fL 9.4-12.3 NUCLEATED RED BLOOD CELLS (BEAKER) (test 0 /100 WBC 0-0 hyue=971) NEUTROPHILS RELATIVE PERCENT (BEAKER) (test 77 % gyhx=215) LYMPHOCYTES RELATIVE PERCENT (BEAKER) (test 16 % rmji=677) MONOCYTES RELATIVE PERCENT (BEAKER) (test 4 % kebh=431) EOSINOPHILS RELATIVE PERCENT (BEAKER) (test 2 % qkek=958) BASOPHILS RELATIVE PERCENT (BEAKER) (test 0 % myhs=530) NEUTROPHILS ABSOLUTE COUNT (BEAKER) (test 5.82 K/ L 1.56-6.13 pcmh=597) LYMPHOCYTES ABSOLUTE COUNT (BEAKER) (test 1.21 K/ L 1.18-3.74 hzmb=844) MONOCYTES ABSOLUTE COUNT (BEAKER) (test 0.31 K/ L 0.24-0.36 wiiv=163) EOSINOPHILS ABSOLUTE COUNT (BEAKER) (test 0.15 K/ L 0.04-0.36 cvud=358) BASOPHILS ABSOLUTE COUNT (BEAKER) (test 0.01 K/ L 0.01-0.08 btiw=262) IMMATURE GRANULOCYTES-RELATIVE PERCENT (BEAKER) 1 % 0-1 (test yrcw=4578) POCT-GLUCOSE [id number] 12:07:00 Test Item Value Reference Range Comments POC-GLUCOSE METER (BEAKER) 110 mg/dL 70-110 TESTED AT [address] (test jamd=1905) [facility] [address] [address], BRAIN, WITHOUT [id number] 06:55:00FINAL REPORT Clinical history : Decreased alertnessComparison [...] Verified Date/Time: 04/09/2017 06 :55:25 Reading Location: [address] Reading Room BASIC METABOLIC [id number] 05:57:00 Test Item Value Reference Range Comments SODIUM (BEAKER) (test 140 meq/L 136-145 pjfy=122) POTASSIUM (BEAKER) (test 3.7 meq/L 3.5-5.1 ipom=417) CHLORIDE (BEAKER) (test 103 meq/L 98-107 pykz=722) CO2 (BEAKER) (test 29 meq/L 22-29 rllt=440) BLOOD UREA NITROGEN 7 mg/dL 7-21 (BEAKER) (test lzvc=581) CREATININE (BEAKER) (test 0.56 mg/dL 0.57-1.25 veef=935) GLUCOSE RANDOM (BEAKER) 110 mg/dL 70-105 (test qkoj=457) CALCIUM (BEAKER) (test 8.7 mg/dL 8.4-10.2 ddvc=388) EGFR (BEAKER) (test 119 mL/min/1.73 sq m ESTIMATED GFR IS NOT xojb=1022) ACCURATE CREATININE CLEARANCE IN PREDICTING GLOMERULAR FILTRATION RATE. ESTIMATED GFR IS NOT APPLICABLE FOR DIALYSIS PATIENTS. CBC W/PLT COUNT & AUTO [id number] 04:54:00 Test Item Value Reference Range Comments WHITE BLOOD CELL COUNT (BEAKER) (test joij=269) 8.1 K/ L 3.5-10.5 RED BLOOD CELL COUNT (BEAKER) (test jwwt=459) 4.07 M/ L 3.93-5.22 HEMOGLOBIN (BEAKER) (test vgaa=682) 11.6 GM/DL 11.2-15.7 HEMATOCRIT (BEAKER) (test kent=856) 37.3 % 34.1-44.9 MEAN CORPUSCULAR VOLUME (BEAKER) (test dtel=365) 91.6 fL 79.4-94.8 MEAN CORPUSCULAR HEMOGLOBIN (BEAKER) (test 28.5 pg 25.6-32.2 clqv=908) MEAN CORPUSCULAR HEMOGLOBIN CONC (BEAKER) (test 31.1 GM/DL 32.2-35.5 zyrv=578) RED CELL DISTRIBUTION WIDTH (BEAKER) (test 13.6 % 11.7-14.4 mnjc=740) PLATELET COUNT (BEAKER) (test cafe=222) 171 K/CU MM 150-450 MEAN PLATELET VOLUME (BEAKER) (test vuhl=150) 11.3 fL 9.4-12.3 NUCLEATED RED BLOOD CELLS (BEAKER) (test 0 /100 WBC 0-0 xmwc=588) NEUTROPHILS RELATIVE PERCENT (BEAKER) (test 77 % nwqn=868) LYMPHOCYTES RELATIVE PERCENT (BEAKER) (test 16 % aqlh=254) MONOCYTES RELATIVE PERCENT (BEAKER) (test 5 % yapy=921) EOSINOPHILS RELATIVE PERCENT (BEAKER) (test 2 % vxjt=956) BASOPHILS RELATIVE PERCENT (BEAKER) (test 0 % fnej=713) NEUTROPHILS ABSOLUTE COUNT (BEAKER) (test 6.20 K/ L 1.56-6.13 dzta=833) LYMPHOCYTES ABSOLUTE COUNT (BEAKER) (test 1.30 K/ L 1.18-3.74 vqgq=618) MONOCYTES ABSOLUTE COUNT (BEAKER) (test 0.38 K/ L 0.24-0.36 tkjp=891) EOSINOPHILS ABSOLUTE COUNT (BEAKER) (test 0.14 K/ L 0.04-0.36 lrgo=222) BASOPHILS ABSOLUTE COUNT (BEAKER) (test 0.01 K/ L 0.01-0.08 xxly=348) IMMATURE GRANULOCYTES-RELATIVE PERCENT (BEAKER) 1 % 0-1 (test rnky=2358) POCT-GLUCOSE [id number] 01:34:00 Test Item Value Reference Range Comments POC-GLUCOSE METER (BEAKER) 92 mg/dL 70-110 TESTED AT [address] (test kkpu=5925) [place] [address] POCT-GLUCOSE [id number] 19:20:00 Test Item Value Reference Range Comments POC-GLUCOSE METER (BEAKER) 85 mg/dL 70-110 TESTED AT [address] (test nbmb=2273) [place] [address] [address], BRAIN, WITHOUT [id number] 15:47:00FINAL REPORT CT head without contrast. Comparisons: [...] Tijerinaort Verified Date/Time: 04/08/2017 15:47:42 POCT- GLUCOSE [id number] 12:44:00 Test Item Value Reference Range Comments POC-GLUCOSE METER (BEAKER) 94 mg/dL 70-110 TESTED AT [facility] [address] [facility] (test cnot=7271) [facility] [id number] BASIC METABOLIC [id number] 05:05:00 Test Item Value Reference Range Comments SODIUM (BEAKER) (test 142 meq/L 136-145 ulrr=068) POTASSIUM (BEAKER) (test 4.0 meq/L 3.5-5.1 dxcg=080) CHLORIDE (BEAKER) (test 107 meq/L 98-107 tvyt=541) CO2 (BEAKER) (test 27 meq/L 22-29 tcgu=560) BLOOD UREA NITROGEN 9 mg/dL 7-21 (BEAKER) (test fwoq=936) CREATININE (BEAKER) (test 0.59 mg/dL 0.57-1.25 kkrh=828) GLUCOSE RANDOM (BEAKER) 105 mg/dL 70-105 (test bulo=379) CALCIUM (BEAKER) (test 8.7 mg/dL 8.4-10.2 ncrp=243) EGFR (BEAKER) (test 112 mL/min/1.73 sq m ESTIMATED GFR IS NOT uhtu=2260) ACCURATE CREATININE CLEARANCE IN PREDICTING GLOMERULAR FILTRATION RATE. ESTIMATED GFR IS NOT APPLICABLE FOR DIALYSIS PATIENTS. CBC W/PLT COUNT & AUTO [id number] 04:28:00 Test Item Value Reference Range Comments WHITE BLOOD CELL COUNT (BEAKER) (test foto=936) 7.1 K/ L 3.5-10.5 RED BLOOD CELL COUNT (BEAKER) (test bgyx=630) 3.90 M/ L 3.93-5.22 HEMOGLOBIN (BEAKER) (test fiav=633) 11.0 GM/DL 11.2-15.7 HEMATOCRIT (BEAKER) (test cqpr=038) 36.6 % 34.1-44.9 MEAN CORPUSCULAR VOLUME (BEAKER) (test erzh=485) 93.8 fL 79.4-94.8 MEAN CORPUSCULAR HEMOGLOBIN (BEAKER) (test 28.2 pg 25.6-32.2 hyun=351) MEAN CORPUSCULAR HEMOGLOBIN CONC (BEAKER) (test 30.1 GM/DL 32.2-35.5 jsju=522) RED CELL DISTRIBUTION WIDTH (BEAKER) (test 14.2 % 11.7-14.4 nfba=059) PLATELET COUNT (BEAKER) (test lxoa=025) 187 K/CU MM 150-450 MEAN PLATELET VOLUME (BEAKER) (test isqw=988) 10.9 fL 9.4-12.3 NUCLEATED RED BLOOD CELLS (BEAKER) (test 0 /100 WBC 0-0 dvbu=390) NEUTROPHILS RELATIVE PERCENT (BEAKER) (test 73 % qgpi=450) LYMPHOCYTES RELATIVE PERCENT (BEAKER) (test 19 % pbqi=320) MONOCYTES RELATIVE PERCENT (BEAKER) (test 5 % pmme=437) EOSINOPHILS RELATIVE PERCENT (BEAKER) (test 2 % ijio=251) BASOPHILS RELATIVE PERCENT (BEAKER) (test 0 % cmlr=571) NEUTROPHILS ABSOLUTE COUNT (BEAKER) (test 5.22 K/ L 1.56-6.13 qnfs=988) LYMPHOCYTES ABSOLUTE COUNT (BEAKER) (test 1.37 K/ L 1.18-3.74 tgri=220) MONOCYTES ABSOLUTE COUNT (BEAKER) (test 0.34 K/ L 0.24-0.36 kxpv=929) EOSINOPHILS ABSOLUTE COUNT (BEAKER) (test 0.13 K/ L 0.04-0.36 ihqw=279) BASOPHILS ABSOLUTE COUNT (BEAKER) (test 0.01 K/ L 0.01-0.08 ggud=780) IMMATURE GRANULOCYTES-RELATIVE PERCENT (BEAKER) 1 % 0-1 (test coev=2426) POCT-GLUCOSE [id number] 17:32:00 Test Item Value Reference Range Comments POC-GLUCOSE METER (BEAKER) 90 mg/dL 70-110 TESTED AT [facility] [address] [facility] (test cufy=2205) [facility] [address] POCT-GLUCOSE [id number] 12:02:00 Test Item Value Reference Range Comments POC-GLUCOSE METER (BEAKER) 91 mg/dL 70-110 TESTED AT [facility] [address] (test neyv=0934) [facility] [address] EEG AWAKE AND [id number] 11:38:00Reason for exam:->R/O subclinical seizuresDATE OF [id number] OF REPORT: [id number]: [id number]: 17- 1801Start time: 09:54Stop time: 10:18ICD-10: G 93.40CPT Code: 01155 HISTORY: 41 y.o. female with history of morbid obesity, DM2 who presented today to OSH with R sided facial droop and LUE weakness . Patient was evaluated at OSH where patient was started with tPA after normal CT. Now with acute encephalopathy MEDICATIONS THAT COULD AFFECT EEG: TECHNICAL SUMMARY: This is a digital EEG recorded with 32 input channels on a [employer] system and then reviewed with bipolar and [...] additional EEG recordings. Javi Mae MDNeurophysiology Fellow [id number] Note: I personally reviewed this EEG record in its entirety and I agreewith the details of this report. Kitty Benson MD, PhDEpilepsy Attending 11 :38 AMCREATINE KINASE (CK), TOTAL AND [id number] 09:35:00 Test Item Value Reference Range Comments CREATINE KINASE TOTAL (BEAKER) (test slhm=976) 52 U/L 29-200 CREATINE KINASE-MB (BEAKER) (test zzua=610) 1.2 ng/mL 0.0-6.6 CREATINE KINASE-MB INDEX (BEAKER) (test ligr=140) 2.3 % CK-MB Reference Range:<6.7 Normal6.7-10.0 Borderline>10.0 AbnormalTROPONIN [id number] 09:31:00 Test Item Value Reference Range Comments TROPONIN I (BEAKER) (test dsui=184) < ng/mL 0.00-0.03 Troponin I (TnI) levels [...] failure, acidosis, acute neurological disease, and persistent tachyarrhythmia.[id number] 09:28:00 Test Item Value Reference Range Comments AMMONIA (BEAKER) (test mhfs=111) 34 mol/L 18-72 TSH/FREE T4 IF [id number] 04:28:00 Test Item Value Reference Range Comments THYROID STIMULATING HORMONE (BEAKER) (test 1.12 uIU/mL 0.35-4.94 qqlc=718) VITAMIN B12 AND [id number] 04:28:00 Test Item Value Reference Range Comments VITAMIN B12 (BEAKER) (test wtzc=652) 417 pg/mL 213-816 FOLATE (BEAKER) (test xrjg=169) 13.6 ng/mL >=7.0 CBC W/PLT COUNT & AUTO [id number] 03:27:00 Test Item Value Reference Range Comments WHITE BLOOD CELL COUNT (BEAKER) (test elpf=429) 8.1 K/ L 3.5-10.5 RED BLOOD CELL COUNT (BEAKER) (test cqwz=305) 3.91 M/ L 3.93-5.22 HEMOGLOBIN (BEAKER) (test npwg=864) 11.4 GM/DL 11.2-15.7 HEMATOCRIT (BEAKER) (test tdij=504) 35.8 % 34.1-44.9 MEAN CORPUSCULAR VOLUME (BEAKER) (test qcrc=170) 91.6 fL 79.4-94.8 MEAN CORPUSCULAR HEMOGLOBIN (BEAKER) (test 29.2 pg 25.6-32.2 ohoe=080) MEAN CORPUSCULAR HEMOGLOBIN CONC (BEAKER) (test 31.8 GM/DL 32.2-35.5 cpwm=170) RED CELL DISTRIBUTION WIDTH (BEAKER) (test 14.3 % 11.7-14.4 rfjf=930) PLATELET COUNT (BEAKER) (test oacb=091) 166 K/CU MM 150-450 MEAN PLATELET VOLUME (BEAKER) (test fnpg=044) 12.4 fL 9.4-12.3 NUCLEATED RED BLOOD CELLS (BEAKER) (test 0 /100 WBC 0-0 tbqc=785) NEUTROPHILS RELATIVE PERCENT (BEAKER) (test 78 % ziui=236) LYMPHOCYTES RELATIVE PERCENT (BEAKER) (test 16 % qckt=396) MONOCYTES RELATIVE PERCENT (BEAKER) (test 4 % grak=731) EOSINOPHILS RELATIVE PERCENT (BEAKER) (test 1 % qxks=644) BASOPHILS RELATIVE PERCENT (BEAKER) (test 0 % ioou=639) NEUTROPHILS ABSOLUTE COUNT (BEAKER) (test 6.27 K/ L 1.56-6.13 exae=174) LYMPHOCYTES ABSOLUTE COUNT (BEAKER) (test 1.30 K/ L 1.18-3.74 cmmf=816) MONOCYTES ABSOLUTE COUNT (BEAKER) (test 0.32 K/ L 0.24-0.36 qlfs=980) EOSINOPHILS ABSOLUTE COUNT (BEAKER) (test 0.09 K/ L 0.04-0.36 kdxh=793) BASOPHILS ABSOLUTE COUNT (BEAKER) (test 0.02 K/ L 0.01-0.08 nwbm=720) IMMATURE GRANULOCYTES-RELATIVE PERCENT (BEAKER) 1 % 0-1 (test gykf=7760) CREATINE KINASE (CK), TOTAL AND [id number] 03:11:00 Test Item Value Reference Range Comments CREATINE KINASE TOTAL (BEAKER) (test kqda=354) 71 U/L 29-200 CREATINE KINASE-MB (BEAKER) (test fuhq=800) 1.5 ng/mL 0.0-6.6 CREATINE KINASE-MB INDEX (BEAKER) (test xqbo=851) 2.1 % CK-MB Reference Range:<6.7 Normal6.7-10.0 Borderline>10.0 AbnormalFastingFastingTROPONIN [id number] 03:11:00 Test Item Value Reference Range Comments TROPONIN I (BEAKER) (test mnyh=627) < ng/mL 0.00-0.03 Troponin I (TnI) levels [...] acute neurological disease, and persistent tachyarrhythmia.FastingBASIC METABOLIC [id number] 03:04:00 Test Item Value Reference Range Comments SODIUM (BEAKER) (test 139 meq/L 136-145 hpbj=273) POTASSIUM (BEAKER) (test 4.3 meq/L 3.5-5.1 Specimen moderately idpq=416) hemolyzed CHLORIDE (BEAKER) (test 107 meq/L 98-107 bhow=121) CO2 (BEAKER) (test 24 meq/L 22-29 uqdg=202) BLOOD UREA NITROGEN 12 mg/dL 7-21 (BEAKER) (test egln=628) CREATININE (BEAKER) (test 0.68 mg/dL 0.57-1.25 Specimen moderately xorm=735) hemolyzed GLUCOSE RANDOM (BEAKER) 175 mg/dL 70-105 (test rign=763) CALCIUM (BEAKER) (test 8.5 mg/dL 8.4-10.2 fcxh=670) EGFR (BEAKER) (test 95 mL/min/1.73 sq m ESTIMATED GFR IS NOT ylae=1022) ACCURATE CREATININE CLEARANCE IN PREDICTING GLOMERULAR FILTRATION RATE. ESTIMATED GFR IS NOT APPLICABLE FOR DIALYSIS PATIENTS. FastingLIPID [id number] 03:04:00 Test Item Value Reference Range Comments TRIGLYCERIDES (BEAKER) (test 99 mg/dL Specimen moderately tqio=640) hemolyzed CHOLESTEROL (BEAKER) (test 139 mg/dL Specimen moderately jiyg=457) hemolyzed HDL CHOLESTEROL (BEAKER) (test 43 mg/dL glnm=600) LDL CHOLESTEROL CALCULATED 76 mg/dL (BEAKER) (test sptc=624) Triglyceride Reference Range: Low Risk <150 Borderline 150- 199 High Risk 200-499 Very High Risk >=500Cholesterol Reference Range: Low Risk <200 Borderline 200-239 High Risk > 240HDL Cholesterol Reference Range: Low Risk >=60 High Risk <40LDL Cholesterol Reference Range: Optimal <100 Near Optimal 100-129 Borderline 130-159 High 160-189 Very High >=190 FastingHEPATIC FUNCTION [id number] 03:04:00 Test Item Value Reference Range Comments TOTAL PROTEIN (BEAKER) (test 7.2 gm/dL 6.0-8.3 Specimen moderately hemolyzed gotg=360) ALBUMIN (BEAKER) (test 3.4 g/dL 3.5-5.0 Specimen moderately hemolyzed gycs=4478) BILIRUBIN TOTAL (BEAKER) (test 0.3 mg/dL 0.2-1.2 Specimen moderately hemolyzed mzci=357) BILIRUBIN DIRECT (BEAKER) 0.1 mg/dL 0.1-0.5 Specimen moderately hemolyzed (test gvre=559) ALKALINE PHOSPHATASE (BEAKER) 74 U/L 40-150 (test uwbv=252) AST (SGOT) (BEAKER) (test 37 U/L 5-34 Specimen moderately hemolyzed bscn=181) ALT (SGPT) (BEAKER) (test 18 U/L 6-55 Specimen moderately uamm=226) hemolyzed Fasting
--- OUTSIDE RECORDS SUMMARY | 2017-12-07 17:32 | XMS REPORT | Clinical Summary ---
:1975 Author Organization [facility] Address [address] [place] [address] Phone Care Team Providers Name Role Phone [...] Headache, acute 05/02/2017 CVA (cerebral vascular accident) ([facility]) 06/07/2016 Encounters Date Type Specialty Care Team Description 05/02/2017 - Hospital Encounter General Internal Smitha Martinez, Cerebrovascular 05/04/2017 Medicine accident (CVA), Talat Concepcion unspecified mechanism MD Shilpi ([facility]);Acute intractable headache, unspecified headache type;Intractable vomiting with nausea, unspecified vomiting type;Morbid obesity ([facility]) 04/07/2017 Orders Only General Internal Medicine 04/06/2017 - Hospital Encounter General Internal Andrea Roberson Acute ischemic stroke 04/15/2017 Medicine Dori, ([facility]);Tissue MD plasminogen activator Jaron (t-PA) administered at MD Chiqui other facility within 24 hours prior to current admission;Acute encephalopathy;Type 2 diabetes mellitus without complication, without long-term current use of insulin ([facility]) after 12/06/2016 Social History Tobacco Use Types Packs/Day Years Used Date Former Smoker 1 1 Quit: 07/08/1993 Smokeless Tobacco: Never Used Alcohol Use Drinks/Week oz/Week Comments No Sex Assigned at Date Recorded Not on file Last Filed Vital Signs Vital Sign Reading Time Taken Blood Pressure 112/56 05/04/2017 7:39 AM APPOINTMENT SCHEDULER Pulse 64 05/04/2017 7:39 AM APPOINTMENT SCHEDULER Temperature 36.4 C (97.5 F) 05/04/2017 7:39 AM APPOINTMENT SCHEDULER Respiratory Rate 18 05/04/2017 7:39 AM APPOINTMENT SCHEDULER Oxygen Saturation 95% 05/04/2017 7:39 AM APPOINTMENT SCHEDULER Inhaled Oxygen Concentration - - Weight 157.5 kg (347 lb 4.8 oz) 05/02/2017 10:00 PM APPOINTMENT SCHEDULER Height 160 cm (5' 3") 05/02/2017 10:00 PM APPOINTMENT SCHEDULER Body Mass Index 61.52 05/02/2017 10:00 PM APPOINTMENT SCHEDULER Plan of Treatment Not on file Results EKG-SCANNED (05/10/2017 7:52 AM)Only the most recent of2 resultswithin the time period is included.RHYTHM STRIP - SCAN (05/10/2017 7:52 AM)Only the most recent of2 resultswithin the time period is included.POC-Glucose meter (2016 7:47 AM)Only the most recent of20 resultswithin the time period is included. Component Value Ref Range POC-Glucose Meter 143 (H)Comment: TESTED AT [address] 70 - 110 mg/[place] [address] Specimen Performing Laboratory Blood [address] [address] Prothrombin time/INR (05/04/2017 4:51 AM)Only the most recent of2 resultswithin the time period is included. Component Value Ref Range Protime 13.4 11.7 - 14.7 seconds INR 1.0 <=5.9 Specimen Performing Laboratory Blood - Arm, [address] [address] Narrative RECOMMENDED COUMADIN/WARFARIN INR THERAPY RANGES STANDARD [...] mg/dL Specimen Performing Laboratory Blood - Arm, [address] [address] Magnesium (05/04/2017 4:51 AM)Only the most recent of2 resultswithin the time period is included. Component Value Ref Range Magnesium 2.3 1.6 - 2.6 mg/dL Specimen Performing Laboratory Blood - Arm, [address] [address] Hepatic function panel (05/04/2017 4:51 AM)Only the [...] U/L Specimen Performing Laboratory Blood - Arm, [address] [address] Basic metabolic panel (05/04/2017 4:51 AM)Only the [...] PATIENTS. Specimen Performing Laboratory Blood - Arm, [address] [address] CBC with platelet count + automated diff [...] % Specimen Performing Laboratory Blood - Arm, [address] [address] Troponin I (05/03/2017 5:17 AM)Only the most recent of4 resultswithin the time period is included. Component Value Ref Range Troponin I <0.01 0.00 - 0.03 ng/mL Specimen Performing Laboratory Blood - Arm, [address] [address] Narrative Troponin I (TnI) levels must be [...] Status --------- ------ CBC with platelet count ...[[id number]]AbnormalFinal result Please view results for these tests on the individual orders. Creatine Kinase (CK), Total and MB (05/03/2017 1:00 AM)Only the most recent of3 resultswithin the time period is included. Component Value Ref Range Total CK 55 29 - 200 U/L CK-MB 1.1 0.0 - 6.6 ng/mL MB Relative Index 2.0 % Specimen Performing Laboratory Blood [address] [address] Narrative CK-MB Reference Range: <6.7Normal 6.7-10.0Borderline >10.0 [...] 0 /100 WBC Specimen Performing Laboratory Blood [address] [address] Clostridium difficile Toxin PCR (04/11/2017 2:20 PM) Component Value Ref Range C.Diff Toxin, PCR Not Detected Not Detected Specimen Performing Laboratory Stool [address] [address] Narrative This qualitative real-time polymerase chain reaction [...] Ref Range Ejection Fraction Specimen Performing Laboratory [facility] Narrative Transthoracic Echocardiography Report (TTE) Demographics Patient Name HUNTER, Date of Study 04/10/2017 GIOVANNY [id number] GenderFemale Visit Number [id number] Race Unknown [id number] Number [id number] Number Date of Birth1975 Referring Physician Age41 year(s) Sales 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 Specimen Performing Laboratory [facility] Narrative FINAL REPORT Clinical history : [...] MD Report Verified Date/Time:04/09/2017 06:55:25 Reading Location: [facility] C013X Ortho Consult Reading Room Procedure [...] Report Verified Date/Time: 04/09/2017 06:55:25 Reading Location: [facility] C013X Ortho Consult Reading Room PHERAL VASCULAR REPORT - SCAN (04/07/2017 5:07 PM)Carotid doppler bilateral (04/07/2017 12:14 PM) Component Value Ref Range Ejection Fraction Specimen Performing Laboratory [facility]ART[facility] Impressions [...] Patient Name Ty CALDERÓN of Study 04/07/2017 [id number] Age 41 Visit Number [id number] Gender Female Accession Number [id number] Date of 1975 [facility] Room Number 7518 Physician SonographAura Tee. [...] of Study 04/07/2017 Age 41 Visit Number [id number] Gender Female Accession Number [id number] Date of 1975 Referring Andrea Roberson Room Number 4289 Physician Sales Demonstrator Rupert Lugo Interpreting Rajeev Jeff MD, RVS [...] DROWSY (04/07/2017 10:18 AM) Specimen Performing Laboratory [employer] Narrative DATE OF EE04-07-2017 DATE OF REPORT: 04-07-2017 ACC: [id number] EE Start time: 09:54 Stop time: 10:18 ICD-10:G 93.40 CPT Code: 51014 HISTORY: 41 y.o. female with history of morbid obesity, DM2 who presented today to OSH with R sided facial droop and LUE weakness . Patient was evaluated at OSH where patient was started with tPA after normal CT. Now with acute encephalopathy MEDICATIONS THAT COULD AFFECT EEG: TECHNICAL SUMMARY: This is a digital EEG recorded with 32 input channels on a [employer] system and then reviewed with bipolar and [...] OF EE04-07-2017 DATE OF REPORT: 04-07-2017 ACC: [id number] EE1 Start time: 09:54 Stop time: 10:18 ICD-10: G 93.40 CPT Code: 53317 HISTORY: 41 y.o. female with history of morbid obesity, DM2 who presented today to OSH with R sided facial droop and LUE weakness . Patient was evaluated at OSH where patient was started with tPA after normal CT. Now with acute encephalopathy MEDICATIONS THAT COULD AFFECT EEG: TECHNICAL SUMMARY: This is a digital EEG recorded with 32 input channels on a [employer] system and then reviewed with bipolar and [...] - 72 mol/L Specimen Performing Laboratory Blood [address] [address] ECG 12 lead (04/07/2017 7:29 AM) Specimen Performing Laboratory [facility] Narrative Ventricular Rate 81 BPM Atrial Rate 81 BPM P-R Interval 120 ms QRS Duration 90 ms Q-T Interval 392 ms QTC Calculation(Bazett) 455 ms P Arbela 19 degrees R Arbela 42 degrees T [place]ela 32 degrees Normal sinus rhythm Normal ECG When compared with ECG of 09-JUN-2016 14:09, No significant change was found Confirmed by MD OLIVERA JORGE ([id number]) on 04/07/2017 2:44:04 PM Procedure Note Interface, External Ris In - 04/07/2017 2:44 PM CDT Ventricular Rate 81 BPM Atrial Rate 81 BPM P-R Interval 120 ms QRS Duration 90 ms Q-T Interval 392 ms QTC Calculation(Bazett) 455 ms P Ar[place]ela 19 degrees R Arbela 42 degrees T [place] 32 degrees Normal sinus rhythm Normal ECG When compared with ECG of 09-JUN-2016 14:09, No significant change was found Confirmed by MD OLIVERA JORGE ([id number]) on 04/07/2017 2:44:04 PM Vitamin B12 and Folate (04/07/2017 2:37 AM) Component Value Ref Range Vitamin B12 417 213 - 816 pg/mL Folate 13.6 >=7.0 ng/mL Specimen Performing Laboratory Blood [address] [address] TSH/Free T4 If Indicated (04/07/2017 2:37 AM) Component Value Ref Range TSH 1.12 0.35 - 4.94 uIU/mL Specimen Performing Laboratory Blood [address] [address] Fasting lipid panel (04/07/2017 2:37 AM) Component Value Ref Range Triglycerides 99Comment: Specimen moderately hemolyzed mg/dL Cholesterol 139Comment: Specimen moderately hemolyzed mg/dL HDL 43 mg/dL LDL Calculated 76 mg/dL Specimen Performing Laboratory Blood [facility] [address] [place] [address] Narrative Triglyceride Reference Range: Low Risk <150 Nompubjfdm054-768 High Risk 200-499 Very High Risk>=500 Cholesterol Reference Range: Low Risk <200 Vamqaoujph119-201 High Risk>240 HDL Cholesterol Reference Range: Low Risk >=60 High Risk <40 LDL Cholesterol Reference Range: Optimal<100 Near Hzjebln290-165 Bmividliyc741-544 Yqmf884-220 Very High >=190 Fasting CTA brain (04/07/2017 12:32 AM) Specimen Performing Laboratory [facility] Narrative Addendum Begins REPORT STATUS:A Three-dimensional post intravenous contrast images of the cerebral vasculature were created on a free standing workstation for better visualization of cerebral vascular anatomy and pathology. Signed: Skip Gardner MD Report Verified Date/Time:04/12/2017 06:59:20 Reading Location: [address] Ortho Consult Reading Room Addendum Ends [...] Report Verified Date/Time:04/07/2017 01:12:44 Reading Location: [address] Ortho Consult Reading Room Procedure Note Interface, External Ris In - 04/12/2017 7:01 AM CDT Addendum Begins REPORT STATUS:A Three-dimensional post intravenous contrast images of the cerebral vasculature were created on a free standing workstation for better visualization of cerebral vascular anatomy and pathology. Signed: Skip Gardner MD Report Verified Date/Time: 04/12/2017 06:59:20 Reading Location: [address] Ortho Consult Reading Room Addendum Ends [...] Report Verified Date/Time: 04/07/2017 01:12:44 Reading Location: [facility] B1 C013X [facility] Consult Reading Room after 12/06/2016
--- NOTE | 2017-12-07 17:53 | RAD REPORT ---
EXAM DESCRIPTION: CT - Ct Stroke Brain Wo Cont - 12/07/2017 5:46 pm CLINICAL HISTORY: Left-sided numbness COMPARISON: None. TECHNIQUE: Computed axial tomography of the head was obtained. IV contrast was not requested. All CT scans are performed using dose optimization technique as appropriate and may include automated exposure control or mA/KV adjustment according to patient size. FINDINGS: An intracranial bleed is not seen . The ventricles are normal in caliber. No extra-axial fluid collection is noted. Fluid within the sinuses/ mastoids is not seen. IMPRESSION: No acute intracranial abnormality is seen. If patient's symptoms persist MRI of the bra in would be recommended. The exam was discussed with [facility] 5:48 p.m. on December 07, 2017
[2017-12-07] MEDS ORDERED: ALTEPLASE 100 ML IV ONE (18:05)
[2017-12-07] MEDS ORDERED: NA CHLORIDE 0.9% 1,000 ML ONE (18:06)
[2017-12-07 18:07] LABS: Absolute Monocytes 0.5 K/uL (0.1-1.3); Absolute Neutrophil 6.4 K/uL (1.8-8.0); Basophils % 0.3 % (0-1.3); Eosinophils % 1.7 % (0-4.4); Lymphocytes % 22.4 % (15.3-44.8); MPV 9.9 fL (7.6-11.3); Monocytes % 5.3 % (3.3-12.3); RBC Red Blood Cell Count 4.48 M/uL (3.86-4.86)
--- NOTE | 2017-12-07 18:07 | RAD REPORT ---
EXAM DESCRIPTION: Sumaya Single View12/07/2017 6:01 pm CLINICAL HISTORY: Code stroke COMPARISON: October 2017 FINDINGS: The lungs appear grossly clear. The heart is mildly enlarged IMPRESSION: No acute abnormalities displayed
[2017-12-07 18:20] LABS: Protime INR 1.03
[2017-12-07 18:24] LABS: BUN Blood Urea Nitrogen 12 mg/dL (7-18); Bicarbonate 28 mmol/L (21-32); Glucose Level 110 mg/dL (74-106); Potassium 4.1 mmol/L (3.5-5.1); Sodium Level 140 mmol/L (136-145)
--- NOTE | 2017-12-07 18:47 | EDPHYS ---
Physician Documentation [facility] Name: Kelle Calderón Age: 42 yrs Sex: Female : 1975 Arrival Date: 12/07/2017 Time: 17:31 Bed 4 Private MD: ED Physician Grabiel Harper HPI: 12/07 17:34 This 42 yrs old Female presents to ER via Unassigned with complaints of Facial jr8 Droop. 17:34 The patient presents to the emergency department with weakness of the left upper jr8 extremity, that is moderate, with the patient having weak vrt mechanic, left side of the face, that is moderate, a speech or higher order brain function problem, aphasia, that is moderate. Onset: The symptoms/episode began/occurred acutely, today, Last known well was at 16:00 hours today when she talked to her mother. Daughter was texted by patient at 16:45pm saying she needed to go to hospital immediately . Associated signs and symptoms: The patient has no apparent associated signs or symptoms. Severity of symptoms: At their worst the symptoms were moderate. Patient's baseline: Neuro: alert and fully oriented, Motor: no deficits, Ambulation: walks without assistance, Speech: normal. Current symptoms: dysphasia, paralysis or paresis, that is moderate. The patient has experienced a previous episode. The patient has not recently seen a physician. Historical: - Allergies: 17:56 Warfarin; ph - Home Meds: 17:59 albuterol sulfate 2.5 mg /3 mL (0.083 %) Inhl nebu twice a day [Active]; amlodipine 10 ph mg tab 1 tab once daily [Active]; aspirin 81 mg Oral TbEC 1 tab once daily [Active]; atorvastatin 40 mg Oral tab 1 tab once daily [Active]; gabapentin 100 mg Oral cap 3 caps 3 times per day [Active]; Linzess 145 mcg Oral cap 1 cap once daily [Active]; lisinopril 20 mg Oral tab 1 tab once daily [Active]; metformin 500 mg Oral tab 1 tab 2 times per day [Active]; pantoprazole 40 mg Oral TbEC 1 tab once daily [Active]; prednisone 5 mg Oral tab once daily [Active]; venlafaxine 75 mg Oral tab 2 times per day [Active]; - PMHx: 17:59 Asthma; bells palsy; Chronic pain; CVA; Depression; Diabetes - NIDDM; GERD; ph Hypertension; Kidney stones; Irritable bowel syndrome; lymphedema; Migraines; Sleep Apnea; - Immunization history:: Adult Immunizations unknown. - Ebola Screening: : No symptoms or risks identified at this time. - Social history:: Smoking status: Patient/guardian denies using tobacco. ROS: 17:34 Eyes: Negative for injury, pain, redness, and discharge, ENT: Negative for injury, jr8 pain, and discharge, Neck: Negative for injury, pain, and swelling, Cardiovascular: Negative for chest pain, palpitations, and edema, Respiratory: Negative for shortness of breath, cough, wheezing, and pleuritic chest pain, Abdomen/GI: Negative for abdominal pain, nausea, vomiting, diarrhea, and constipation, Back: Negative for injury and pain, MS/Extremity: Negative for injury and deformity, Skin: Negative for injury, rash, and discoloration. 17:34 Neuro: Positive for altered mental status, weakness. Exam: 17:34 Head/Face: Normocephalic, atraumatic. Eyes: Pupils equal round and reactive to light, jr8 extra-ocular motions intact. Lids and lashes normal. Conjunctiva and sclera are non-icteric and not injected. Cornea within normal limits. Periorbital areas with no swelling, redness, or edema. ENT: Nares patent. No nasal discharge, no septal abnormalities noted. Tympanic membranes are normal and external auditory canals are clear. Oropharynx with no redness, swelling, or masses, exudates, or evidence of obstruction, uvula midline. Mucous membranes moist. Neck: Trachea midline, no thyromegaly or masses palpated, and no cervical lymphadenopathy. Supple, full range of motion without nuchal rigidity, or vertebral point tenderness. No Meningismus. Chest/axilla: Normal chest wall appearance and motion. Nontender with no deformity. No lesions are appreciated. Cardiovascular: Regular rate and rhythm with a normal S1 and S2. No gallops, murmurs, or rubs. Normal PMI, no JVD. No pulse deficits. Respiratory: Lungs have equal breath sounds bilaterally, clear to auscultation and percussion. No rales, rhonchi or wheezes noted. No increased work of breathing, no retractions or nasal flaring. Abdomen/GI: Soft, non-tender, with normal bowel sounds. No distension or tympany. No guarding or rebound. No evidence of tenderness throughout. Back: No spinal tenderness. No costovertebral tenderness. Full range of motion. Skin: Warm, dry with normal turgor. Normal color with no rashes, no lesions, and no evidence of cellulitis. MS/ Extremity: Pulses equal, no cyanosis. Neurovascular intact. Full, normal range of motion. 17:34 Neuro: Orientation: to person, place \T\ time. Mentation: slow to respond, Cranial nerves: CN I not tested, CN II- XII are normal as tested, visual segal are intact. extraocular movements are intact, facial droop noted on left, with forehead spared. Speech is dysarthric, slowed, slurred, Cerebellar function: dysmetria is noted on the left, Motor: moves all fours, Sensation: no obvious gross deficits, Gait: not tested. Vital Signs: 17:35 BP 150 / 110; Pulse 82; Resp 16 S; Temp 98.5(TE); Pulse Ox 96% on R/A; Weight 156.49 kg;ph 18:00 BP 161 / 107; Pulse 70; Resp 18; Pulse Ox 99% on R/A; ph 18:30 BP 149 / 100; Pulse 75; Resp 16; Pulse Ox 100% on 2 lpm NC; ph 19:00 BP 156 / 90; Pulse 76; Resp 18; Pulse Ox 100% on 2 lpm NC; ph NIH Stroke Scale Scores: 17:34 NIHSS Score: 10 [facility] 17:35 NIHSS Score: 10 ph Garrison Coma Score: 19:04 Eye Response: to voice(3). Verbal Response: none(1). Motor Response: obeys commands(6). [facility] Total: 10. MDM: 17:34 Patient medically screened. jr8 18:06 ED course: Patient has no exclusionary criteria noted. TPA has been ordered 18:06. jr8 18:08 ED course: Some delay for TPA to be given to confirm last known well time . jr8 18:54 Data reviewed: vital signs, nurses notes, lab test result(s), EKG, radiologic studies, jr8 CT scan, plain films, and as a result, I will admit patient. Data interpreted: Pulse oximetry: on room air is 96 %. Interpretation: normal. Counseling: I had a detailed discussion with the patient and/or guardian regarding: the historical points, exam findings, and any diagnostic results supporting the discharge/admit diagnosis, lab results, the need to transfer to another facility, for higher level of care, [facility] does not immediately have the required specialist. ED course: Dr. Roberson Accepted patient at [facility] . 12/07 17:38 Order name: Basic Metabolic Panel; Complete Time: 18:55 em12/07 17:38 Order name: CBC with Diff; Complete Time: 18:55 em12/07 17:38 Order name: Protime (+inr); Complete Time: 18:55 em12/07 17:38 Order name: Ptt, Activated; Complete Time: 18:55 em12/07 17:38 Order name: CT Stroke Brain w/o Contrast; Complete Time: 18:08 em12/07 17:38 Order name: Stroke CXR 1 View; Complete Time: 18:55 em12/07 17:38 Order name: EKG; Complete Time: 17:39 em12/07 17:38 Order name: Accucheck; Complete Time: 17:56 em12/07 17:38 Order name: Cardiac monitoring; Complete Time: 17:56 em12/07 17:38 Order name: EKG - Nurse/Tech; Complete Time: 17:56 em12/07 18:50 Order name: Head angio; Complete Time: 20:09 [facility] 12/07 17:38 Order name: IV Saline Lock; Complete Time: 17:56 12/07 17:38 Order name: Labs collected and sent; Complete Time: 17:56 em12/07 17:38 Order name: NPO; Complete Time: 17:55 em12/07 17:38 Order name: O2 Per Protocol; Complete Time: 17:55 12/07 17:38 Order name: O2 Sat Monitoring; Complete Time: 17:55 em12/07 17:38 Order name: Stroke Swallow Screen; Complete Time: 19:37 em1 Administered Medications: 18:15 Drug: Alteplase (Bolus for Stroke) - Alteplase 0.09 mg/kg {Co-Signature: aa5 (Yennifer Isidro RN).} Route: IVP; Infused Over: 1 mins; Site: right upper arm; 19:15 Follow up: Response: No adverse reaction ph 18:15 Drug: Alteplase 81 mg {Co-Signature: aa5 (Yennifer Isidro RN).} Route: IV; Rate: ph calculated rate; Site: right upper arm; 19:15 Follow up: Response: No adverse reaction; IV Status: Completed infusion ph Point of Care Testing: Blood Glucose: 17:55 Blood Glucose: 109 mg/dL; ph Ranges: Critical Glucose Levels:Adult <50 mg/dl or >400 mg/dl <40 mg/dl or >180 mg/dl Disposition: 12/08 06:44 Co-signature as Attending Physician, Grabiel Harper MD I agree with the assessment and lisa plan of care. Disposition: 12/07/17 18:46 Transfer ordered to [facility]. Diagnosis is Cerebral infarction - ischemic, left sided weakness. - Reason for transfer: Higher level of care. - Accepting physician is to icu , dr teague. - Condition is Serious. - Problem is new. - Symptoms have improved. Critical care time excluding procedures: 12/07 18:58 Critical care time: Bedside Care: 20 minutes, Consultation: 10 minutes, Family jr8 Intervention: 10 minutes. Total time: 40 minutes NIH Stroke Scale - NIH Stroke Score Date: 12/07/2017 Time: 17:34 Total Score = 10 1a. Level of Consciousness (LOC) - 0(Alert) 1b. Level of Consciousness (LOC) (Year \T\ Age) - 0(Both) 1c. LOC Commands (Open \T\ Closes Eyes/Color Mixer) - 0(Both) 2. Best Gaze (Lateral Gaze Paresis) - 0(Normal) 3. Visual Field Loss - 0(No visual loss) 4. Facial Palsy - 2(Partial paralysis) 5a. Left Arm: Motor (10-second hold) - 1(Drift) 5b. Right Arm: Motor (10-second hold) - 0(No drift) 6a. Left Leg: Motor (5-second hold - always test supine) - 1(Drift) 6b. Right Leg: Motor (5-second hold - always test supine) - 0(No drift) 7. Limb Ataxia (finger/nose \T\ heel/dillon - test with eyes open) - 1(Present in one limb) 8. Sensory Loss (pinprick arms/legs/face) - 0(Normal) 9. Best Language: Aphasia (description/naming/reading) - 2(Severe aphasia) 10. Dysarthria (speech clarity - read or repeat words) - 2(Severe) 11. Extinction and Inattention (visual/tactile/auditory/spatial/personal) - 1(Present) Initials: jr8 NIH Stroke Scale - NIH Stroke Score Date: 12/07/2017 Time: 17:35 Total Score = 10 1a. Level of Consciousness (LOC) - 0(Alert) 1b. Level of Consciousness (LOC) (Year \T\ Age) - 0(Both) 1c. LOC Commands (Open \T\ Closes Eyes/Color Mixer) - 0(Both) 2. Best Gaze (Lateral Gaze Paresis) - 0(Normal) 3. Visual Field Loss - 0(No visual loss) 4. Facial Palsy - 2(Partial paralysis) 5a. Left Arm: Motor (10-second hold) - 1(Drift) 5b. Right Arm: Motor (10-second hold) - 0(No drift) 6a. Left Leg: Motor (5-second hold - always test supine) - 1(Drift) 6b. Right Leg: Motor (5-second hold - always test supine) - 0(No drift) 7. Limb Ataxia (finger/nose \T\ heel/dillon - test with eyes open) - 1(Present in one limb) 8. Sensory Loss (pinprick arms/legs/face) - 0(Normal) 9. Best Language: Aphasia (description/naming/reading) - 2(Severe aphasia) 10. Dysarthria (speech clarity - read or repeat words) - 2(Severe) 11. Extinction and Inattention (visual/tactile/auditory/spatial/personal) - 1(Present) Initials: ph Signatures: Dispatcher [employer] EDMS Grabiel Harper MD MD cha Martinez, Eric em1 Samuel Teague PA PA jr8 Rosalba Douglas RN RN ph Nina Fermin RN RN tl2 Yennifer Isidro RN aa5 Corrections: (The following items were deleted from the chart) 18:05 17:34 This 42 yrs old Female presents to ER via Unassigned with jr8 complaints of Facial Droop. jr8 20:21 18:46 12/07/2017 18:46 Transfer ordered to [facility]. tl2 Diagnosis is Cerebral infarction - ischemic, left sided weakness. Reason for transfer: Higher level of care. Accepting physician is to icu , dr teague. Condition is Serious. Problem is new. Symptoms have improved. lisa
--- NOTE | 2017-12-07 18:47 | ER ---
Nurse's Notes [facility] Name: Kelle Calderón Age: 42 yrs Sex: Female : 1975 Arrival Date: 12/07/2017 Time: 17:31 Bed 4 Private MD: Diagnosis: Cerebral infarction-ischemic, left sided weakness Presentation: 12/07 17:35 An acute neurological deficit is present. The patient has been moved to a treatment 5 area. Pre-hospital glucose is not applicable to this patient. Onset of symptoms was December 07, 2017. 17:35 Method Of Arrival: Wheelchair aa5 17:35 Transition of care: patient was not received from another setting of care. [facility] 17:35 Presenting complaint: Patient states: left-sided chest pain, left arm numbness, left aa5 leg numbness, left-sided weakness, and left sided facial droop. Pt's speech is clear but pt is slow to respond to questions, pt appears drowsy. 17:55 Risk Assessment: Do you want to hurt yourself or someone else? Patient reports no ph desire to harm self or others. Initial Sepsis Screen: Does the patient meet any 2 criteria? No. Patient's initial sepsis screen is negative. Does the patient have a suspected source of infection? No. Patient's initial sepsis screen is negative. 17:55 Acuity: SIMRAN 1 ph 17:55 Care prior to arrival: None. ph Stroke Activation: Symptom onset < 3 hours Physician: Stroke Attending; Name: ; Notified At: ; Arrived At: Physician: Chief Stroke Resident; Name: ; Notified At: ; Arrived At: Physician: Stroke Resident; Name: ; Notified At: ; Arrived At: Physician: ED Attending; Name: ; Notified At: ; Arrived At: Physician: ED Resident; Name: ; Notified At: ; Arrived At: Historical: - Allergies: 17:56 Warfarin; ph - Home Meds: 17:59 albuterol sulfate 2.5 mg /3 mL (0.083 %) Inhl nebu twice a day [Active]; amlodipine 10 ph mg tab 1 tab once daily [Active]; aspirin 81 mg Oral TbEC 1 tab once daily [Active]; atorvastatin 40 mg Oral tab 1 tab once daily [Active]; gabapentin 100 mg Oral cap 3 caps 3 times per day [Active]; Linzess 145 mcg Oral cap 1 cap once daily [Active]; lisinopril 20 mg Oral tab 1 tab once daily [Active]; metformin 500 mg Oral tab 1 tab 2 times per day [Active]; pantoprazole 40 mg Oral TbEC 1 tab once daily [Active]; prednisone 5 mg Oral tab once daily [Active]; venlafaxine 75 mg Oral tab 2 times per day [Active]; - PMHx: 17:59 Asthma; bells palsy; Chronic pain; CVA; Depression; Diabetes - NIDDM; GERD; ph Hypertension; Kidney stones; Irritable bowel syndrome; lymphedema; Migraines; Sleep Apnea; - Immunization history:: Adult Immunizations unknown. - Ebola Screening: : No symptoms or risks identified at this time. - Social history:: Smoking status: Patient/guardian denies using tobacco. Screenin:55 Abuse screen: Denies threats or abuse. Denies injuries from another. Nutritional ph screening: No deficits noted. Tuberculosis screening: No symptoms or risk factors identified. Fall Risk No fall in past 12 months (0 pts). Secondary diagnosis (15 points) CVA, IV access (20 points). Ambulatory Aid- None/Bed Rest/Nurse Assist (0 pts). Gait- Weak (10 pts.). Mental Status- Overestimates/Forgets Limitations (15 pts.). Total Mckinney Fall Scale indicates High Risk Score (45 or more points). Fall prevention measures have been instituted. Side Rails Up X 2 Placed Close to Nursing Station Frequent Obs/Assessments Occuring Family Present and informed to notify staff if the need to leave the bedside As available patient and family educated on Fall Prevention Program and Strategies. Assessment: 17:35 Reassessment: Pt taken to CT, accompanied by Yennifer Dwyer RN. ph 17:38 Reassessment: ERP at bedside, awaiting pt return from CT. ph 18:00 General: Appears uncomfortable, obese, Behavior is cooperative, quiet. ph 18:00 Pain: Complains of pain in anterior aspect of left upper chest and left breast Pain ph radiates to left side of neck and left arm. Neuro: Level of Consciousness is obeys commands, lethargic, Oriented to person, place, situation, Molecular Pathologist are weak on left Speech speech normal but pt slow to respond to questioning. Facial droop on left, Reports numbness in left arm and left leg. Cardiovascular: Reports chest pain, Capillary refill < 3 seconds Patient's skin is warm and dry. Rhythm is sinus rhythm Chest pain is located in left anterior chest wall radiates to left arm(s) neck. Respiratory: Airway is patent Respiratory effort is even, unlabored, Respiratory pattern is regular, symmetrical. GI: No signs and/or symptoms were reported involving the gastrointestinal system. Derm: Skin is intact, Skin is pink, warm \T\ dry. 18:05 T-PA (Activase) Screening: Indications: Definite evidence of stroke, ischemic, embolic, ph or hypertensive: Yes. Treatment will start within 4.5 hours onset of symptoms: Yes. No evidence of intracranial hemorrhage or CT of head and no evidence of peripheral hemorrhage or recent CVA: Yes. Consent for thrombolytic therapy: Yes. 18:30 Reassessment: Patient appears in no apparent distress at this time. Patient and/or ph family updated on plan of care and expected duration. Pain level reassessed. Pt remains drowsy w/ eyes closed,respirations even and unlabored, awakens to tactile stimuli, TPA currently infusing, no complications noted at this time, RN remains at bedside. 18:30 Patient has been NPO before screening. The patient is not alert and/or unable to follow ph commands. Bedside swallow screen discontinued. Patient kept NPO until cleared by Speech Therapy or Physician. The patient exhibits slurred or garbled speech. The patient is exhibiting difficulty speaking. The patient failed the bedside swallow screening. The patient will be kept NPO until cleared by Speech Therapy or Physician. Provider notified of bedside swallow screening results: Samuel PITT. 19:05 Reassessment: Report called to JOSEY De La Cruz at [facility], awaiting [facility] for transport. Vital Signs: 17:35 BP 150 / 110; Pulse 82; Resp 16 S; Temp 98.5(TE); Pulse Ox 96% on R/A; Weight 156.49 kg;ph 18:00 BP 161 / 107; Pulse 70; Resp 18; Pulse Ox 99% on R/A; ph 18:30 BP 149 / 100; Pulse 75; Resp 16; Pulse Ox 100% on 2 lpm NC; ph 19:00 BP 156 / 90; Pulse 76; Resp 18; Pulse Ox 100% on 2 lpm NC; ph Garrison Coma Score: 19:04 Eye Response: to voice(3). Verbal Response: none(1). Motor Response: obeys commands(6). jr8 Total: 10. NIH Stroke Scale Scores: 17:34 NIHSS Score: 10 jr8 17:35 NIHSS Score: 10 ph ED Course: 17:31 Patient arrived in ED. rg4 17:34 Samuel Teague PA is PHCP. jr8 17:34 Grabiel Harper MD is Attending Physician. jr8 17:[address] mw3 17:45 CT completed. Patient tolerated procedure well. Patient moved back from CT. mw3 17:46 CT Stroke Brain w/o Contrast In Process Unspecified. EDMS 17:54 Rosalba Douglas, JOSEY is Primary Nurse. ph 17:55 Triage completed. ph 17:56 Arm band placed on. ph 17:59 Stroke CXR 1 View In Process Unspecified. EDMS 18:00 EKG done, by business technology professor. reviewed by Samuel PITT. sm3 18:00 Inserted saline lock: 20 gauge in right upper arm, using aseptic technique. Blood ph collected. 18:05 Patient has correct armband on for positive identification. Placed in gown. Bed in low ph position. Call light in reach. Side rails up X2. personnel monitor on. Pulse ox on. NIBP on. Warm blanket given. 19:01 Radiology exam delayed due to Per Nurse will call when pt ready to come down to CT. nj 19:37 No provider procedures requiring assistance completed. Patient transferred, IV remains ph in place. 19:41 Head angio In Process Unspecified. EDMS Administered Medications: 18:15 Drug: Alteplase (Bolus for Stroke) - Alteplase 0.09 mg/kg {Co-Signature: aa5 (Yennifer Isidro RN).} Route: IVP; Infused Over: 1 mins; Site: right upper arm; 19:15 Follow up: Response: No adverse reaction ph 18:15 Drug: Alteplase 81 mg {Co-Signature: aa5 (Yennifer Isidro RN).} Route: IV; Rate: ph calculated rate; Site: right upper arm; 19:15 Follow up: Response: No adverse reaction; IV Status: Completed infusion ph Point of Care Testing: Blood Glucose: 17:55 Blood Glucose: 109 mg/dL; ph Ranges: Outcome: 18:46 ER care complete, transfer ordered by . lisa 20:21 Transferred by helicopter Transfer form completed. tl2 20:21 critical 20:21 Discharge instructions given to family, Instructed on the need for transfer. 20:21 Patient left the ED. tl2 NIH Stroke Scale - NIH Stroke Score Date: 12/07/2017 Time: 17:34 Total Score = 10 1a. Level of Consciousness (LOC) - 0(Alert) 1b. Level of Consciousness (LOC) (Year \T\ Age) - 0(Both) 1c. LOC Commands (Open \T\ Closes Eyes/Elect Equip Maint Eng) - 0(Both) 2. Best Gaze (Lateral Gaze Paresis) - 0(Normal) 3. Visual Field Loss - 0(No visual loss) 4. Facial Palsy - 2(Partial paralysis) 5a. Left Arm: Motor (10-second hold) - 1(Drift) 5b. Right Arm: Motor (10-second hold) - 0(No drift) 6a. Left Leg: Motor (5-second hold - always test supine) - 1(Drift) 6b. Right Leg: Motor (5-second hold - always test supine) - 0(No drift) 7. Limb Ataxia (finger/nose \T\ heel/dillon - test with eyes open) - 1(Present in one limb) 8. Sensory Loss (pinprick arms/legs/face) - 0(Normal) 9. Best Language: Aphasia (description/naming/reading) - 2(Severe aphasia) 10. Dysarthria (speech clarity - read or repeat words) - 2(Severe) 11. Extinction and Inattention (visual/tactile/auditory/spatial/personal) - 1(Present) Initials: jr8 NIH Stroke Scale - NIH Stroke Score Date: 12/07/2017 Time: 17:35 Total Score = 10 1a. Level of Consciousness (LOC) - 0(Alert) 1b. Level of Consciousness (LOC) (Year \T\ Age) - 0(Both) 1c. LOC Commands (Open \T\ Closes Eyes/Elect Equip Maint Eng) - 0(Both) 2. Best Gaze (Lateral Gaze Paresis) - 0(Normal) 3. Visual Field Loss - 0(No visual loss) 4. Facial Palsy - 2(Partial paralysis) 5a. Left Arm: Motor (10-second hold) - 1(Drift) 5b. Right Arm: Motor (10-second hold) - 0(No drift) 6a. Left Leg: Motor (5-second hold - always test supine) - 1(Drift) 6b. Right Leg: Motor (5-second hold - always test supine) - 0(No drift) 7. Limb Ataxia (finger/nose \T\ heel/dillon - test with eyes open) - 1(Present in one limb) 8. Sensory Loss (pinprick arms/legs/face) - 0(Normal) 9. Best Language: Aphasia (description/naming/reading) - 2(Severe aphasia) 10. Dysarthria (speech clarity - read or repeat words) - 2(Severe) 11. Extinction and Inattention (visual/tactile/auditory/spatial/personal) - 1(Present) Initials: ph Signatures: Dispatcher [employer] EDGrabiel Ya MD MD cha Calderon, Yennifer, RN RN aa5 Samuel Teague PA PA jr8 Rosalba Douglas RN RN ph Nina Fermin RN RN 2 Selina Tovar 4 Roland Pulido Shakira 3 Sona Rutledge 3 Yennifer Isidro RN aa5 Corrections: (The following items were deleted from the chart) 18:40 17:35 BP 150 / 110; Pulse 82bpm; Resp 16bpm; Spontaneous; Pulse Ox 96% RA; Temp ph 98.5F Temporal; aa5 18:52 18:00 General: Appears uncomfortable, obese, ph ph
--- NOTE | 2017-12-07 20:07 | RAD REPORT ---
EXAM DESCRIPTION: CT - Head angio - 12/07/2017 7:41 pm CLINICAL HISTORY: Left-sided arm numbness, left leg numbness, left-sided weakness, facial droop COMPARISON: CT head same date TECHNIQUE: During dynamic enhancement using nonionic IV contrast, axial 1 millimeter thick images of the head were obtained. Sagittal and coronal reformatted images generated and reviewed. FINDINGS: Major venous sinuses normally opacified. No venous sinus thrombosis. No aneurysm or vascular malformation identified. No major branch occlusion seen. No significant ather osclerotic changes identifiable. Intracranial portions of the internal carotid artery's without signi ficant finding. IMPRESSION: CT head angio study shows no significant or suspicious finding.
[2017-12-07 20:25] VITALS: TEMP 98.5
[2017-12-07 20:27] VITALS: O2SAT 100
[2017-12-07 20:29] VITALS: BP 156/90
--- NOTE | 2017-12-07 23:12 | EKG ---
Test Date: 2017-12-07 Test Time: 17:54:24 Head End Desizing Machine Operator: YORDY MEASUREMENT RESULTS: Intervals: Rate: 79 TN: 132 QRSD: 94 QT: 386 QTc: 442 [place]: P: 15 TN: 132 QRS: 15 T: 16 INTERPRETIVE STATEMENTS: Normal sinus rhythm Normal ECG Compared to ECG 10/26/2017 22:11:47 T-wave abnormality no longer present Electronically Signed On 12-07-17 23:12:04 CDT by Clinton Schulz
== END 2017-12-07 20:21 | disposition short-term general hospital (02) ==
LOC: ER 17:29
DX: I63.8 Other cerebral infarction (principal); R29.710 NIHSS score 10; I10 Essential (primary) hypertension; E11.9 Type 2 diabetes mellitus without complications; J45.909 Unspecified asthma, uncomplicated; Z86.73 Personal history of transient ischemic attack (TIA), and cerebral infarction without residual deficits; Z79.82 Long term (current) use of aspirin; Z88.8 Allergy status to other drugs, medicaments and biological substances
CPT/HCPCS: 36415; 70450; 70496; 71045; 80048; 85025; 85610; 85730; 93005; 96374; J2997; J7030; Q9967; 82962; 92977; 96365; 99291

== ENCOUNTER 2018-03-30 21:05 | Emergency (ER) | payer OTHER ==
--- OUTSIDE RECORDS SUMMARY | 2018-03-30 21:08 | XMS REPORT | Clinical Summary ---
:1975 Author Organization [facility] Address [address] [place] [address] Phone Care Team Providers Name Role Phone Unavailable Primary Care Provider Unavailable Allergies Active Allergy Reactions Severity Noted Date Comments Warfarin Nausea And Vomiting 06/07/2016 Current Medications Prescription Sig. Disp. Refills Start Date End Date Status bifidobacterium Take by mouth Active infantis (ALIGN) 4 mg daily. Cap methocarbamol Take 750 mg by Active (ROBAXIN) 750 MG mouth 4 (four) tablet times daily as needed . venlafaxine (EFFEXOR) Take 75 mg by Active [...] for Pain for up to 360 days. hyoscyamine Take 0.125 mg Discontinued (LEVSIN/SL) 0.125 mg by mouth 2 8 SL tablet (two) times daily. esomeprazole (NEXIUM) Take 40 mg by Discontinued 40 MG capsule mouth daily. 8 aluminum & magnesium Take 30 mLs by 355 mL 0 04/14/2017 hydroxide-simethicone mouth every 6 7 (MAALOX PLUS) (six) hours as 400-400-40 mg/5 mL needed for up suspension to 10 days. amitriptyline Take 1 tablet 90 tablet 3 05/04/2017 Discontinued (ELAVIL) 10 MG tablet (10 mg total) 7 by mouth nightly. Active Problems Problem Noted Date Left-sided weakness 12/08/2017 Status post administration of tPA (rtPA) in a different facility within 2017 the last 24 hours prior to admission to current facility Acute ischemic stroke ([facility]) 12/07/2017 Headache, acute 05/02/2017 CVA (cerebral vascular accident) ([facility]) 06/07/2016 Encounters Date Type Specialty Care Team Description 12/07/2017 - Hospital Encounter Intensive Care Andrea Roberson Acute ischemic stroke 12/09/2017 Dori ([facility]);Left-sided MD weakness;Status post administration of tPA (rtPA) in a different facility within the last 24 hours prior to admission to current facility;Functional neurological symptom disorder with weakness or paralysis 05/02/2017 - Hospital Encounter General Internal Smitha Martinez, Cerebrovascular 05/04/2017 Medicine MD wolf (CVA)Jamey Rabiya unspecified mechanism MD Shilpi ([facility]);Acute intractable headache, unspecified headache type;Intractable vomiting with nausea, unspecified vomiting type;Morbid obesity ([facility]) 04/07/2017 Orders Only General Internal Medicine 04/06/2017 - Hospital Encounter General Internal Andrea Roberson Acute ischemic stroke 04/15/2017 Medicine Dori, ([facility]);Tissue MD plasminogen activator Jaron (t-PA) administered at MD Chiqui other facility within 24 hours prior to current admission;Acute encephalopathy;Type 2 diabetes mellitus without complication, without long-term current use of insulin ([facility]) after 03/29/2017 Family History Medical History Relation Name Comments Diabetes Mother Hypertension Mother Relation Name Status Comments Mother Social History Tobacco Use Types Packs/Day Years Used Date Former Smoker 1 1 Quit: 07/08/1993 Smokeless Tobacco: Never Used Alcohol Use Drinks/Week oz/Week Comments No Sex Assigned at Date Recorded Not on file Last Filed Vital Signs Vital Sign Reading Time Taken Blood Pressure 132/81 12/09/2017 8:00 AM CDT Pulse 58 12/09/2017 10:56 AM CDT Temperature 36.6 C (97.8 F) 12/09/2017 7:00 AM CDT Respiratory Rate 20 12/09/2017 10:56 AM CDT Oxygen Saturation 94% 12/09/2017 10:56 AM CDT Inhaled Oxygen Concentration - - Weight 155.4 kg (342 lb 9.5 oz) 12/07/2017 8:50 PM CDT Height 157.5 cm (5' 2") 12/07/2017 8:50 PM CDT Body Mass Index 62.66 12/07/2017 8:50 PM CDT Plan of Treatment Not on file Results EKG-SCANNED (12/12/2017 2:21 PM)Only the most recent of3 resultswithin the time period is included.RHYTHM STRIP - SCAN (12/12/2017 2:21 PM)Only the most recent of3 resultswithin the time period is included.POC-Glucose meter (2017 8:19 AM)Only the most recent of26 resultswithin the time period is included. Component Value Ref Range POC-Glucose Meter 99Comment: TESTED AT [facility] [address] [place] [address] 70 - 110 mg/dL 17144 Specimen Performing Laboratory Blood [facility] [address] [address] CBC with platelet count + automated diff (12/09/2017 4:35 AM)Only the most recent of9 resultswithin the time period is included. Component Value Ref Range WBC 6.7 3.5 - 10.5 K/L RBC 4.08 3.93 - 5.22 M/L Hemoglobin 11.4 11.2 - 15.7 GM/DL Hematocrit 37.6 34.1 - 44.9 % MCV 92.2 79.4 - 94.8 fL MCH 27.9 25.6 - 32.2 pg MCHC 30.3 (L) 32.2 - 35.5 GM/DL RDW 14.6 (H) 11.7 - 14.4 % Platelets 192 150 - 450 K/CU MM MPV 11.9 9.4 - 12.3 fL nRBC 0 0 - 0 /100 WBC % Neutros 69 % % Lymphs 25 % % Monos 5 % % Eos 2 % % Baso 0 % # Neutros 4.59 1.56 - 6.13 K/L # Lymphs 1.65 1.18 - 3.74 K/L # Monos 0.30 0.24 - 0.36 K/L # Eos 0.11 0.04 - 0.36 K/L # Baso 0.01 0.01 - 0.08 K/L Immature Granulocytes-Relative 0 0 - 1 % Specimen Performing Laboratory Blood [facility] [address] [address] CBC with platelet count + automated diff (12/09/2017 4:35 AM)Only the most recent of9 resultswithin the time period is included. Specimen Performing Laboratory Blood Narrative The following orders were created for panel order CBC with platelet count + automated diff. Procedure Abnormality Status --------- ------ CBC with platelet count ...[[id number]]AbnormalFinal result Please view results for these tests on the individual orders. Basic Metabolic Panel (12/09/2017 4:35 AM)Only the most recent of10 resultswithin the time period is included. Component Value Ref Range Sodium 140 136 - 145 meq/L Potassium 3.9 3.5 - 5.1 meq/L Chloride 105 98 - 107 meq/L CO2 28 22 - 29 meq/L BUN 11 7 - 21 mg/dL Creatinine 0.62 0.57 - 1.25 mg/dL Glucose 107 (H) 70 - 105 mg/dL Calcium 8.8 8.4 - 10.2 mg/dL EGFR 106Comment: ESTIMATED GFR IS NOT ACCURATE mL/min/1.73 sq m CREATININE CLEARANCE IN PREDICTING GLOMERULAR FILTRATION RATE. ESTIMATED GFR IS NOT APPLICABLE FOR DIALYSIS PATIENTS. Specimen Performing Laboratory Blood [facility] [address] [address] MR brain without IV contrast (12/08/2017 8:00 PM) Specimen Performing Laboratory [facility] R[facility] Narrative FINAL REPORT MRI Brain without contrast Clinical History: Stroke Technique: MRI of the brain utilizing axial T2, FLAIR, GRE, DWI; sagittal and coronal T1-weighted images. Comparisons: CT 04/09/2017 Findings: There is no evidence of acute infarct or hemorrhage. There is no significant appearing white matter disease. There is no hydrocephalus, midline shift, or apparent mass effect. There are no extra-axial fluid collections. The craniocervical junction is preserved. The major intracranial flow-voids appear patent. IMPRESSION: No evidence of acute infarct, hemorrhage, or hydrocephalus. Signed: Madeleine Macias MD Report Verified Date/Time:12/08/2017 20:02:46 Reading Location: [facility] Radiology Reading Room Procedure Note Interface, External Ris In - 12/08/2017 8:07 PM CDT FINAL REPORT MRI Brain without contrast Clinical History: Stroke Technique: MRI of the brain utilizing axial T2, FLAIR, GRE, DWI; sagittal and coronal T1-weighted images. Comparisons: CT 04/09/2017 Findings: There is no evidence of acute infarct or hemorrhage. There is no significant appearing white matter disease. There is no hydrocephalus, midline shift, or apparent mass effect. There are no extra-axial fluid collections. The craniocervical junction is preserved. The major intracranial flow-voids appear patent. IMPRESSION: No evidence of acute infarct, hemorrhage, or hydrocephalus. Signed: Madeleine Macias MD Report Verified Date/Time: 12/08/2017 20:02:46 Reading Location: [facility] Radiology Reading Room neck without IV contrast (12/08/2017 8:00 PM) Specimen Performing Laboratory [facility] R[facility] Narrative FINAL REPORT MRA Head CLINICAL HISTORY: Stroke TECHNIQUE: MRA of the head utilizing 3-D vzst-hc-hxomet technique, with 3-D reconstructions. COMPARISON: None FINDINGS: There is no evidence of intracranial aneurysm, focal stenosis, or major branch vessel occlusion. There is a origin of the right posterior cerebral artery. IMPRESSION: No evidence for a major [facility] [place] proximal branch vessel occlusion. MRA Neck CLINICAL HISTORY: Stroke TECHNIQUE: MRA of the neck utilizing 2-D and 3-D rprj-qz-guukrg technique, with 3-D reconstructions. COMPARISON: None FINDINGS: The carotid arteries in the neck are patent including their bifurcations. There is antegrade flow in the vertebral arteries in the neck. IMPRESSION: No evidence of hemodynamically significant stenosis in the cervical carotid or vertebral arteries by NASCET criteria. Signed: Madeleine Macias MD Report Verified Date/Time:12/08/2017 20:13:50 Reading Location: [facility] Reading Room Procedure Note Interface, External Ris In - 12/08/2017 8:15 PM CDT FINAL REPORT MRA Head CLINICAL HISTORY: Stroke TECHNIQUE: MRA of the head utilizing 3-D rdha-ec-cdjkav technique, with 3-D reconstructions. COMPARISON: None FINDINGS: There is no evidence of intracranial aneurysm, focal stenosis, or major branch vessel occlusion. There is a origin of the right posterior cerebral artery. IMPRESSION: No evidence for a major [facility] [place] proximal branch vessel occlusion. MRA Neck CLINICAL HISTORY: Stroke TECHNIQUE: MRA of the neck utilizing 2-D and 3-D dwbu-nw-phbwlz technique, with 3-D reconstructions. COMPARISON: None FINDINGS: The carotid arteries in the neck are patent including their bifurcations. There is antegrade flow in the vertebral arteries in the neck. IMPRESSION: No evidence of hemodynamically significant stenosis in the cervical carotid or vertebral arteries by NASCET criteria. Signed: Madeleine Macias MD Report Verified Date/Time: 12/08/2017 20:13:50 Reading Location: [facility] Radiology Reading Room head without IV contrast (12/08/2017 8:00 PM) Specimen Performing Laboratory RIS Narrative FINAL REPORT MRA Head CLINICAL HISTORY: Stroke TECHNIQUE: MRA of the head utilizing 3-D iqjs-lm-plxvhb technique, with 3-D reconstructions. COMPARISON: None FINDINGS: There is no evidence of intracranial aneurysm, focal stenosis, or major branch vessel occlusion. There is a origin of the right posterior cerebral artery. IMPRESSION: No evidence for a major [facility] [place] proximal branch vessel occlusion. MRA Neck CLINICAL HISTORY: Stroke TECHNIQUE: MRA of the neck utilizing 2-D and 3-D pmaq-ox-sdglci technique, with 3-D reconstructions. COMPARISON: None FINDINGS: The carotid arteries in the neck are patent including their bifurcations. There is antegrade flow in the vertebral arteries in the neck. IMPRESSION: No evidence of hemodynamically significant stenosis in the cervical carotid or vertebral arteries by NASCET criteria. Signed: Madeleine Macias MD Report Verified Date/Time:12/08/2017 20:13:50 Reading Location: [facility] Reading Room Procedure Note Interface, External Ris In - 12/08/2017 8:15 PM CDT FINAL REPORT MRA Head CLINICAL HISTORY: Stroke TECHNIQUE: MRA of the head utilizing 3-D gyiv-dc-sfvbnn technique, with 3-D reconstructions. COMPARISON: None FINDINGS: There is no evidence of intracranial aneurysm, focal stenosis, or major branch vessel occlusion. There is a origin of the right posterior cerebral artery. IMPRESSION: No evidence for a major [facility] [place] proximal branch vessel occlusion. MRA Neck CLINICAL HISTORY: Stroke TECHNIQUE: MRA of the neck utilizing 2-D and 3-D zsue-tf-xatmji technique, with 3-D reconstructions. COMPARISON: None FINDINGS: The carotid arteries in the neck are patent including their bifurcations. There is antegrade flow in the vertebral arteries in the neck. IMPRESSION: No evidence of hemodynamically significant stenosis in the cervical carotid or vertebral arteries by NASCET criteria. Signed: Madeleine Macias MD Report Verified Date/Time: 12/08/2017 20:13:50 Reading Location: [facility] Radiology Reading Room CARDIOGRAM REPORT - SCAN (12/08/2017 6:50 PM)Only the most recent of2 resultswithin the time period is included.2D Echo W/Doppler(CW/PW/Color) with saline (12/08/2017 11:58 AM)Only the most recent of2 resultswithin the time period is included. Component Value Ref Range Ejection Fraction Specimen Performing Laboratory [facility] ECHO HEARTLAB CONSUELO CPACS Narrative Transthoracic Echocardiography Report (TTE) Demographics Patient NameAGUILAR, Date of Study2017 GIOVANNY Gender Female Visit [id number] Race Unknown [id number] Number Date of 1975 Referring PhysicianAndrea Mendez Age 42 year(s) Sewage Plant Attendant Reji Wilson, [facility] Rail Setter Jeremi RodriguezInterpreting Frederic Martel MD Physician Procedure Type of Study TTE procedure:2DECHO W DOPPLER(CW/PW/COLOR) (Routine) Indications:Stroke . Clinical History MORBID OBESITY, ASTHMA, DIABETES, IBS, GERD, ZHOU'S PALSY HGB 11.6 HCT 37.5 % BUBBLE STUDY PERFORMED Contrast Medium: Definity. Amount - 2 ml Height: 62 inches Weight: 156.49 kg (345 lbs) BSA: 2.41 m^2 BMI: 63.1 kg/m^2 HR: 65 bpm BP: 119/72 mmHg Summary IV saline contrast injection was negative for a PFO (patent foramen ovale) at rest . LV endocardium is adequately visualized with IV ultrasound enhancing agent. The left ventricle is chamber size (by PSLAX dimension) is normal (female - LVIDd 3.8-5.2cm) . Mild concentric LV hypertrophy. All of the LV segments contract normally . Estimated LVEF by qualitative assessment is normal (55-60%) . Estimated peak systolic PA pressure is 35-40 mmHg . No evidence of pericardial effusion. Signature Findings Left Ventricle LV endocardium is adequately visualized with IV ultrasound enhancing agent. The left ventricle is chamber size (by PSLAX dimension) is normal (female - LVIDd 3.8-5.2cm) . Mild concentric LV hypertrophy. All of the LV segments contract normally . Estimated LVEF by qualitative assessment is normal (55-60%) . Left AtriumLA size is normal . Right VentricleRV chamber size is mildly enlarged . Global RV systolic function is normal . Right Atrium The RA is partially visualized. RA cavity size is normal . Atrial SeptumIV saline contrast injection was negative for a PFO (patent foramen ovale) at rest . Aortic Valve AoV is partially visualized. Normal AoV structure. Mitral Valve Trace mitral regurgitation. Tricuspid ValveA trace of tricuspid regurgitation. Estimated peak systolic PA pressure is 35-40 mmHg . Pulmonic Valve PV is not well visualized. AortaAortic root size (SInus of Valsalva diameter) is normal . PericardiumNo evidence of pericardial effusion. IVC/SVC/PA/PV/PleuralThe estimated RA pressure by IVC dynamics 5-10mmHg . Chambers/Structures Left Atrium LA Dimension: 4.33 cmLA Area: 24.66 cm^2 LA Volume: 82.96 ml LA Vol. Index: 34 ml/m^2 Left Ventricle LVIDd: 4.88 cm LV Septum Diastolic: 1.27 cm LV PW Diastolic: 1.23 cm LVOT Diameter: 2.1 cm Aorta Ao Root S of Carlita.: 2.89 cm Doppler/Quantitative Measurements LVOT LVOT Diameter: 2.1 cm LVOT Area: 3.46 cm^2 Procedure Note Interface, External Ris In - 12/08/2017 6:17 PM CDT Transthoracic Echocardiography Report (TTE) Demographics Patient Name HARRISON, Date of Study 12/08/2017 GIOVANNY Gender Female Visit Number [id number] Race Unknown Room Number 7401 Number Date of 1975 Referring Physician Andrea Mendez Age 42 year(s) Sewage Plant Attendant RORY Cervantes Rail Setter Jeremi Rodriguez Interpreting Frederic Martel MD Physician Procedure Type of Study TTE procedure:2DECHO W DOPPLER(CW/PW/COLOR) (Routine) Indications:Stroke . Clinical History MORBID OBESITY, ASTHMA, DIABETES, IBS, GERD, ZHOU'S PALSY HGB 11.6 HCT 37.5 % BUBBLE STUDY PERFORMED Contrast Medium: Definity. Amount - 2 ml Height: 62 inches Weight: 156.49 kg (345 lbs) BSA: 2.41 m^2 BMI: 63.1 kg/m^2 HR: 65 bpm BP: 119/72 mmHg Summary IV saline contrast injection was negative for a PFO (patent foramen ovale) at rest . LV endocardium is adequately visualized with IV ultrasound enhancing agent. The left ventricle is chamber size (by PSLAX dimension) is normal (female - LVIDd 3.8-5.2cm) . Mild concentric LV hypertrophy. All of the LV segments contract normally . Estimated LVEF by qualitative assessment is normal (55-60%) . Estimated peak systolic PA pressure is 35-40 mmHg . No evidence of pericardial effusion. Signature Findings Left Ventricle LV endocardium is adequately visualized with IV ultrasound enhancing agent. The left ventricle is chamber size (by PSLAX dimension) is normal (female - LVIDd 3.8-5.2cm) . Mild concentric LV hypertrophy. All of the LV segments contract normally . Estimated LVEF by qualitative assessment is normal (55-60%) . Left Atrium LA size is normal . Right Ventricle RV chamber size is mildly enlarged . Global RV systolic function is normal . Right Atrium The RA is partially visualized. RA cavity size is normal . Atrial Septum IV saline contrast injection was negative for a PFO (patent foramen ovale) at rest . Aortic Valve AoV is partially visualized. Normal AoV structure. Mitral Valve Trace mitral regurgitation. Tricuspid Valve A trace of tricuspid regurgitation. Estimated peak systolic PA pressure is 35-40 mmHg . Pulmonic Valve PV is not well visualized. Aorta Aortic root size (SInus of Valsalva diameter) is normal . Pericardium No evidence of pericardial effusion. IVC/SVC/PA/PV/Pleural The estimated RA pressure by IVC dynamics 5-10mmHg . Chambers/Structures Left Atrium LA Dimension: 4.33 cm LA Area: 24.66 cm^2 LA Volume: 82.96 ml LA Vol. Index: 34 ml/m^2 Left Ventricle LVIDd: 4.88 cm LV Septum Diastolic: 1.27 cm LV PW Diastolic: 1.23 cm LVOT Diameter: 2.1 cm Aorta Ao Root S of Carlita.: 2.89 cm Doppler/Quantitative Measurements LVOT LVOT Diameter: 2.1 cm LVOT Area: 3.46 cm^2 Carotid doppler bilateral (12/08/2017 11:10 AM)Only the most recent of2 resultswithin the time period is included. Component Value Ref Range Ejection Fraction Specimen Performing Laboratory [facility] Impressions Right Impression 1. The internal, common and external carotid arteries are within normal limits. 2. The vertebral artery flow is antegrade and normal. 3. The subclavian artery is within normal limits where visualized. Left Impression 1. The internal, common and external carotid arteries are within normal limits. 2. The vertebral artery flow is antegrade and normal. 3. The subclavian artery is within normal limits where visualized. Conclusions Summary Carotid duplex scanning and color flow imaging were performed bilaterally. The arteries were adequately visualized and no areas of stenosis were found bilaterally. Doppler flow velocities were within normal range bilaterally. The vertebral artery flow was antegrade and normal bilaterally. Signature Velocities are measured in cm/s ; Diameters are measured in cm Carotid Right Measurements + +----+----+-----+ + + + !Location !PSV !EDV !Angle!%Stenosis 2D!%Stenosis Doppler! Tortuosity ! + +----+----+-----+ + + + !Prox CCA !112 !27.5!60 !! ! ! + +----+----+-----+ + + + !Dist CCA !81.7!33!60 !! ! ! + +----+----+-----+ + + + !Prox ICA !113 !33.8!60 !! ! ! + +----+----+-----+ + + + !Dist ICA !83.3!38.5!60 !! ! ! + +----+----+-----+ + + + !Prox ECA !99.8!14.1!60 !! ! ! + +----+----+-----+ + + + !Vertebral!48.7!15.7!60 !! ! ! + +----+----+-----+ + + + !Prox Subclavian!102 !26.4!60 !! ! ! + +----+----+-----+ + + + - Additional Measurements:ICAPSV/CCAPSV 1.38.ICAEDV/CCAEDV 1.4. Carotid Left Measurements + +----+----+-----+ + + + !Location !PSV !EDV !Angle!%Stenosis 2D!%Stenosis Doppler! Tortuosity ! + +----+----+-----+ + + + !Prox CCA !132 !40.1!60 !! ! ! + +----+----+-----+ + + + !Dist CCA !88.8!32.2!60 !! ! ! + +----+----+-----+ + + + !Prox ICA !89.6!28.3!60 !! ! ! + +----+----+-----+ + + + !Dist ICA !77!27.5!60 !! ! ! + +----+----+-----+ + + + !Prox ECA !119 !15.3!50 !! ! ! + +----+----+-----+ + + + !Vertebral!85.6!32.2!60 !! ! ! + +----+----+-----+ + + + !Prox Subclavian!158 !30.6!60 !! ! ! + +----+----+-----+ + + + - Additional Measurements:ICAPSV/CCAPSV 1.01.ICAEDV/CCAEDV 0.71. Narrative [facility] - Carotid Duplex Study Demographics Patient Name yT HARRISON of Study12/08/2017 [id number] Age42 Visit Number [id number] Gender Female Accession Number [id number] Date of Birth1975 [facility] Room Aiuttd2375 Physician SonographerFernando GoldbergInterpreting Yosi Martinez MD, RPVI Procedure Type of Study: Cerebral: Carotid, CAROTID DOPPLER, BILATERAL. Indications for Study:Stroke workup . Patient Status:STAT. Study Location:Portable. Technical Quality:Adequate visualization. Risk Factors History of Disease + + + + !Diagnosis !Date!Comments ! + + + + !History/Risk!04/07/2017!Former smoker, CVA with left sided weakness & ! !Factors:!!right facial droop, DM, Morbid obesity! + + + + Procedure Note Interface, External Ris In - 12/08/2017 2:43 PM CDT [facility] - Carotid Duplex Study Demographics Patient Name GIOVANNY HARRISON Date of Study 12/08/2017 Age 42 Visit Number [id number] Gender Female Accession Number [id number] Date of 1975 Referring Andrea Roberson Room Number 7401 Physician Sewage Plant Attendant Fernando Jeff T Physician , RPVI Procedure Type of Study: Cerebral: Carotid, CAROTID DOPPLER, BILATERAL. Indications for Study:Stroke workup . Patient Status:STAT. Study Location:Portable. Technical Quality:Adequate visualization. Risk Factors History of Disease + + + + !Diagnosis !Date !Comments ! + + + + !History/Risk !04/07/2017!Former smoker, CVA with left sided weakness & ! !Factors: ! !right facial droop, DM, Morbid obesity ! + + + + Impressions Right Impression 1. The internal, common and external carotid arteries are within normal limits. 2. The vertebral artery flow is antegrade and normal. 3. The subclavian artery is within normal limits where visualized. Left Impression 1. The internal, common and external carotid arteries are within normal limits. 2. The vertebral artery flow is antegrade and normal. 3. The subclavian artery is within normal limits where visualized. Conclusions Summary Carotid duplex scanning and color flow imaging were performed bilaterally. The arteries were adequately visualized and no areas of stenosis were found bilaterally. Doppler flow velocities were within normal range bilaterally. The vertebral artery flow was antegrade and normal bilaterally. Signature Velocities are measured in cm/s ; Diameters are measured in cm Carotid Right Measurements + +----+----+-----+ + + + !Location !PSV !EDV !Angle!%Stenosis 2D!%Stenosis Doppler!Tortuosity ! + +----+----+-----+ + + + !Prox CCA !112 !27.5!60 ! ! ! ! + +----+----+-----+ + + + !Dist CCA !81.7!33 !60 ! ! ! ! + +----+----+-----+ + + + !Prox ICA !113 !33.8!60 ! ! ! ! + +----+----+-----+ + + + !Dist ICA !83.3!38.5!60 ! ! ! ! + +----+----+-----+ + + + !Prox ECA !99.8!14.1!60 ! ! ! ! + +----+----+-----+ + + + !Vertebral !48.7!15.7!60 ! ! ! ! + +----+----+-----+ + + + !Prox Subclavian!102 !26.4!60 ! ! ! ! + +----+----+-----+ + + + - Additional Measurements:ICAPSV/CCAPSV 1.38.ICAEDV/CCAEDV 1.4. Carotid Left Measurements + +----+----+-----+ + + + !Location !PSV !EDV !Angle!%Stenosis 2D!%Stenosis Doppler!Tortuosity ! + +----+----+-----+ + + + !Prox CCA !132 !40.1!60 ! ! ! ! + +----+----+-----+ + + + !Dist CCA !88.8!32.2!60 ! ! ! ! + +----+----+-----+ + + + !Prox ICA !89.6!28.3!60 ! ! ! ! + +----+----+-----+ + + + !Dist ICA !77 !27.5!60 ! ! ! ! + +----+----+-----+ + + + !Prox ECA !119 !15.3!50 ! ! ! ! + +----+----+-----+ + + + !Vertebral !85.6!32.2!60 ! ! ! ! + +----+----+-----+ + + + !Prox Subclavian!158 !30.6!60 ! ! ! ! + +----+----+-----+ + + + - Additional Measurements:ICAPSV/CCAPSV 1.01.ICAEDV/CCAEDV 0.71. Troponin I (12/08/2017 9:01 AM)Only the most recent of6 resultswithin the time period is included. Component Value Ref Range Troponin I <0.01 0.00 - 0.03 ng/mL Specimen Performing Laboratory Blood [address] [address] Narrative Troponin I (TnI) levels must be [...] acidosis, acute neurological disease, and persistent tachyarrhythmia. Urine culture (12/08/2017 3:39 AM) Component Value Ref Range Result No growth Specimen Performing Laboratory Urine - Urine, Straight Catheter [address] [address] Rapid drug screen, urine (12/08/2017 3:38 AM) Component Value Ref Range Barbiturate Screen Negative Negative Benzodiazepine Screen Negative Negative Cocaine (Metab.) Screen Negative Negative Methadone Screen Negative Negative Opiate Screen Negative Negative Cannabinoid Screen Negative Negative Amph/Methamph Screen Negative Negative Phencyclidine Screen Negative Negative Oxycodone Screen Negative Negative Specimen Performing Laboratory Urine - Urine, Sterile Collection [address] [address] Narrative DRUGCUTOFF CONC. Cocaine 300 ng/mL Xgrhvaumbjr35 ng/mL Zneafcqxicpxjf590 ng/mL Barbiturate 200 ng/mL Ncdfgozzavfix22 ng/mL Rbxydg866 ng/mL Methadone 300 ng/mL Amphetamine/ 1000 ng/mL Methamphetamine Oxycodone 300 ng/mL This assay provides an unconfirmed qualitative test result for the clinical management of patients in emergency situations. Chain of custody not maintained. Some wlax-brw-syvcolb medications, as well as adulterants, may cause inaccurate results. Clinical correlation should be applied. A more comprehensive drug screen or confirmation of a detected drug may be performed upon request. Urinalysis w/ Microscopic (12/08/2017 3:38 AM) Component Value Ref Range Color, UA Yellow Clarity, UA Clear Specific Cecil, UA 1.039 (H) 1.001 - 1.035 pH, UA 5.5 5.0 - 8.0 Protein, UA 10 mg/dL (A) Negative Glucose, UA Negative Negative Ketones, UA Negative Negative Bilirubin, UA Negative Negative Blood, UA Small (A) Negative Nitrite, UA Negative Negative Leukocytes, UA Negative Negative Urobilinogen, UA 0.2 0.2 - 1.0 mg/dL RBC, UA 1 /HPF WBC, UA <1 /HPF Mucus Occasional Squam Epithel, UA <1 /HPF Crystals, Urine Rare Specimen Source Urine, Sterile Collection Specimen Performing Laboratory Urine - Urine, Sterile Collection [address] [address] TSH/Free T4 If Indicated (12/08/2017 3:37 AM)Only the most recent of2 resultswithin the time period is included. Component Value Ref Range TSH 0.66 0.35 - 4.94 uIU/mL Specimen Performing Laboratory Blood - Arm, [address] [address] Hemoglobin A1c - Fasting (12/08/2017 3:37 AM)Only the most recent of2 resultswithin the time period is included. Component Value Ref Range Hemoglobin A1C 6.6 (H) 4.3 - 6.1 % Specimen Performing Laboratory Blood - Arm, [address] [address] Narrative Fasting Fasting lipid panel (12/08/2017 3:37 AM)Only the most recent of2 resultswithin the time period is included. Component Value Ref Range Triglycerides 83Comment: Specimen slightly hemolyzed mg/dL Cholesterol 140Comment: Specimen slightly hemolyzed mg/dL HDL 38 mg/dL LDL Calculated 85 mg/dL Specimen Performing Laboratory Blood - Arm, [address] [address] Narrative Triglyceride Reference Range: Low Risk <150 Aojokxxoso815-760 High Risk 200-499 Very High Risk>=500 Cholesterol Reference Range: Low Risk <200 Pvglpajprk733-650 High Risk>240 HDL Cholesterol Reference Range: Low Risk >=60 High Risk <40 LDL Cholesterol Reference Range: Optimal<100 Near Byitegc330-506 Bktopddodk438-363 Spos866-938 Very High >=190 Fasting Vitamin B12 and Folate (12/07/2017 11:19 PM)Only the most recent of2 resultswithin the time period is included. Component Value Ref Range Vitamin B12 688 213 - 816 pg/mL Folate 12.1 >=7.0 ng/mL Specimen Performing Laboratory Blood - Arm, [address] [address] Prothrombin time/INR (12/07/2017 11:19 PM)Only the most recent of3 resultswithin the time period is included. Component Value Ref Range Protime 15.8 (H) 11.7 - 14.7 seconds INR 1.3 <=5.9 Specimen Performing Laboratory Blood - Arm, [address] [address] Narrative RECOMMENDED COUMADIN/WARFARIN INR THERAPY RANGES STANDARD DOSE: 2.0 - 3.0 Includes: PROPHYLAXIS for venous thrombosis, systemic embolization; TREATMENT for venous thrombosis and/or pulmonary embolus. HIGH RISK: Target INR is 2.5-3.5 for patients with mechanical heart valves. Hepatic function panel (12/07/2017 11:19 PM)Only the most recent of4 resultswithin the time period is included. Component Value Ref Range Protein, Total 6.8 6.0 - 8.3 gm/dL Albumin 3.7 3.5 - 5.0 g/dL Total Bilirubin 0.4 0.2 - 1.2 mg/dL Bilirubin, Direct 0.2 0.1 - 0.5 mg/dL Alkaline Phosphatase 75 40 - 150 U/L AST 30 5 - 34 U/L ALT 17 6 - 55 U/L Specimen Performing Laboratory Blood - Arm, [address] [address] XR chest 1 view portable / bedside (12/07/2017 9:45 PM) Specimen Performing Laboratory [facility] Narrative FINAL REPORT Clinical History: Stroke workup Comparison Study: None Findings:The cardiac silhouette is enlarged. The lungs are within normal limits.The pleural spaces are clear.No significant bony or soft tissue abnormalities are seen. Impression: Cardiomegaly. Signed: Wellington Goodwin MD Report Verified Date/Time:12/07/2017 21:51:29 Reading Location: [facility] C013 Consult Reading Room Procedure Note Interface, External Ris In - 12/07/2017 9:53 PM CDT FINAL REPORT Clinical History: Stroke workup Comparison Study: None Findings: The cardiac silhouette is enlarged. The lungs are within normal limits. The pleural spaces are clear. No significant bony or soft tissue abnormalities are seen. Impression: Cardiomegaly. Signed: Wellington Goodwin MD Report Verified Date/Time: 12/07/2017 21:51:29 Reading Location: [facility] C013 Consult Reading Room Phosphorus (05/04/2017 4:51 AM)Only the most recent of2 resultswithin the time period is included. Component Value Ref Range Phosphorus 4.4 2.3 - 4.7 mg/dL Specimen Performing Laboratory Blood - Arm, [address] [address] Magnesium (05/04/2017 4:51 AM)Only the most recent of2 resultswithin the time period is included. Component Value Ref Range Magnesium 2.3 1.6 - 2.6 mg/dL Specimen Performing Laboratory Blood - Arm, [address] [address] Creatine Kinase (CK), Total and MB (05/03/2017 1:00 AM)Only the most recent of3 resultswithin the time period is included. Component Value Ref Range Total CK 55 29 - 200 U/L CK-MB 1.1 0.0 - 6.6 ng/mL MB Relative Index 2.0 % Specimen Performing Laboratory Blood [address] [address] Narrative CK-MB Reference Range: <6.7Normal 6.7-10.0Borderline >10.0 [...] 0 /100 WBC Specimen [place] [address] Clostridium difficile Toxin PCR (04/11/2017 2:20 PM) Component Value Ref Range C.Diff Toxin, PCR Not Detected Not Detected Specimen Performing Laboratory Stool [place] [id number] Narrative This qualitative real-time polymerase chain reaction [...] of a positive result is not recommended. CT brain without IV contrast (04/09/2017 6:45 AM)Only the most recent of2 resultswithin the time period is included. Specimen Performing Laboratory [facility] Narrative FINAL REPORT Clinical history : Decreased [...] MD Report Verified Date/Time:04/09/2017 06:55:25 Reading Location: [address] Ortho Consult Reading Room Procedure Note [...] Report Verified Date/Time: 04/09/2017 06:55:25 Reading Location: [facility] C013 Ortho Consult Reading Room PHERAL VASCULAR REPORT - SCAN (04/07/2017 5:07 PM)EEG AWAKE AND DROWSY ( 10:18 AM) Specimen Performing Laboratory [employer] Narrative DATE OF EE04-07-2017 DATE OF REPORT: 04-07-2017 ACC: [id number] Start time: 09:54 Stop time: 10:18 ICD-10:G 93.40 CPT Code: 20367 HISTORY: 41 y.o. female with history of morbid obesity, DM2 who presented today to OSH with R sided facial droop and LUE weakness . Patient was evaluated at OSH where patient was started with tPA after normal CT. Now with acute encephalopathy MEDICATIONS THAT COULD AFFECT EEG: TECHNICAL SUMMARY: This is a digital EEG recorded with 32 input channels on a [employer] system and then reviewed with bipolar and [...] OF EE04-07-2017 DATE OF REPORT: 04-07-2017 ACC: [id number] EE Start time: 09:54 Stop time: 10:18 ICD-10: G 93.40 CPT Code: 00596 HISTORY: 41 y.o. female with history of morbid obesity, DM2 who presented today to OSH with R sided facial droop and LUE weakness . Patient was evaluated at OSH where patient was started with tPA after normal CT. Now with acute encephalopathy MEDICATIONS THAT COULD AFFECT EEG: TECHNICAL SUMMARY: This is a digital EEG recorded with 32 input channels on a [employer] system and then reviewed with bipolar and [...] - 72 mol/L Specimen Performing Laboratory Blood [facility] [address] [address] ECG 12 lead (04/07/2017 7:29 AM) Specimen Performing Laboratory [facility] Narrative Ventricular Rate 81 BPM Atrial Rate 81 BPM P-R Interval 120 ms QRS Duration 90 ms Q-T Interval 392 ms QTC Calculation(Bazett) 455 ms P Lyndon 19 degrees R Lyndon 42 degrees T Lyndon 32 degrees Normal sinus rhythm Normal ECG When compared with ECG of 09-JUN-2016 14:09, No significant change was found Confirmed by MD OLIVERA JORGE ([id number]) on 04/07/2017 2:44:04 PM Procedure Note Interface, External Ris In - 04/07/2017 2:44 PM CDT Ventricular Rate 81 BPM Atrial Rate 81 BPM P-R Interval 120 ms QRS Duration 90 ms Q-T Interval 392 ms QTC Calculation(Bazett) 455 ms P Lyndon 19 degrees R Lyndon 42 degrees T Lyndon 32 degrees Normal sinus rhythm Normal ECG When compared with ECG of 09-JUN-2016 14:09, No significant change was found Confirmed by MD OLIVERA JORGE ([id number]) on 04/07/2017 2:44:04 PM CTA brain (04/07/2017 12:32 AM) Specimen Performing Laboratory [facility] Narrative Addendum Begins REPORT STATUS:A Three-dimensional post intravenous contrast images of the cerebral vasculature were created on a free standing workstation for better visualization of cerebral vascular anatomy and pathology. Signed: Skip Gardner MD Report Verified Date/Time:04/12/2017 06:59:20 Reading Location: [facility] [id number] Ortho Consult Reading Room Addendum Ends FINAL [...] MD Report Verified Date/Time:04/07/2017 01:12:44 Reading Location: [address] Ortho Consult Reading Room Procedure Note Interface, External Ris In - 04/12/2017 7:01 AM CDT Addendum Begins REPORT STATUS:A Three-dimensional post intravenous contrast images of the cerebral vasculature were created on a free standing workstation for better visualization of cerebral vascular anatomy and pathology. Signed: Skip Gardner MD Report Verified Date/Time: 04/12/2017 06:59:20 Reading Location: [facility] C0[facility] Ortho Consult Reading Room Addendum Ends FINAL [...] Report Verified Date/Time: 04/07/2017 01:12:44 Reading Location: [facility] [address] [place] [address] Consult Reading Room after 03/29/2017
--- OUTSIDE RECORDS SUMMARY | 2018-03-30 21:09 | XMS REPORT ---
:1975 [facility] [address] [place] [address] Care Team Providers Name Role Phone JONATAN, MAYRA GELLER Unavailable Unavailable MICKEY RESTREPO Unavailable Unavailable Problems This patient has no known problems. Allergies, Adverse Reactions, Alerts This patient has no known allergies or adverse reactions. Medications This patient has no known medications. Results Test Description Test Time Test Comments Text Results Atomic Results Result Comments URINE CULTURE 2017-12-10 13:30:00 Test Item Value Reference Range Comments CULTURE (BEAKER) (test qqtn=6527) No growth POCT-GLUCOSE [id number] 08:21:00 Test Item Value Reference Range Comments POC-GLUCOSE METER (BEAKER) 99 mg/dL 70-110 TESTED AT [address] (test pnkz=0015) [place] [id number] POCT-GLUCOSE [id number] 06:14:00 Test Item Value Reference Range Comments POC-GLUCOSE METER (BEAKER) 105 mg/dL 70-110 TESTED AT [address] (test nrkw=9649) [place] [id number] BASIC METABOLIC [id number] 05:56:00 Test Item Value Reference Range Comments SODIUM (BEAKER) (test 140 meq/L 136-145 ivxb=271) POTASSIUM (BEAKER) (test 3.9 meq/L 3.5-5.1 lsiy=358) CHLORIDE (BEAKER) (test 105 meq/L 98-107 dfqv=116) CO2 (BEAKER) (test 28 meq/L 22-29 hevl=133) BLOOD UREA NITROGEN 11 mg/dL 7-21 (BEAKER) (test mewo=793) CREATININE (BEAKER) (test 0.62 mg/dL 0.57-1.25 sizd=080) GLUCOSE RANDOM (BEAKER) 107 mg/dL 70-105 (test fnxt=543) CALCIUM (BEAKER) (test 8.8 mg/dL 8.4-10.2 jrua=716) EGFR (BEAKER) (test 106 mL/min/1.73 sq m ESTIMATED GFR IS NOT ozwq=2601) ACCURATE CREATININE CLEARANCE IN PREDICTING GLOMERULAR FILTRATION RATE. ESTIMATED GFR IS NOT APPLICABLE FOR DIALYSIS PATIENTS. CBC W/PLT COUNT & AUTO [id number] 05:15:00 Test Item Value Reference Range Comments WHITE BLOOD CELL COUNT (BEAKER) (test dpph=005) 6.7 K/ L 3.5-10.5 RED BLOOD CELL COUNT (BEAKER) (test bdbd=491) 4.08 M/ L 3.93-5.22 HEMOGLOBIN (BEAKER) (test crdf=584) 11.4 GM/DL 11.2-15.7 HEMATOCRIT (BEAKER) (test hpdb=912) 37.6 % 34.1-44.9 MEAN CORPUSCULAR VOLUME (BEAKER) (test mgdc=557) 92.2 fL 79.4-94.8 MEAN CORPUSCULAR HEMOGLOBIN (BEAKER) (test 27.9 pg 25.6-32.2 uiik=730) MEAN CORPUSCULAR HEMOGLOBIN CONC (BEAKER) (test 30.3 GM/DL 32.2-35.5 igih=139) RED CELL DISTRIBUTION WIDTH (BEAKER) (test 14.6 % 11.7-14.4 nglq=389) PLATELET COUNT (BEAKER) (test ehbd=439) 192 K/CU MM 150-450 MEAN PLATELET VOLUME (BEAKER) (test rlrt=564) 11.9 fL 9.4-12.3 NUCLEATED RED BLOOD CELLS (BEAKER) (test 0 /100 WBC 0-0 oxzd=952) NEUTROPHILS RELATIVE PERCENT (BEAKER) (test 69 % wrqj=747) LYMPHOCYTES RELATIVE PERCENT (BEAKER) (test 25 % lave=882) MONOCYTES RELATIVE PERCENT (BEAKER) (test 5 % mgli=223) EOSINOPHILS RELATIVE PERCENT (BEAKER) (test 2 % jpck=035) BASOPHILS RELATIVE PERCENT (BEAKER) (test 0 % mscp=456) NEUTROPHILS ABSOLUTE COUNT (BEAKER) (test 4.59 K/ L 1.56-6.13 slbc=119) LYMPHOCYTES ABSOLUTE COUNT (BEAKER) (test 1.65 K/ L 1.18-3.74 birg=214) MONOCYTES ABSOLUTE COUNT (BEAKER) (test 0.30 K/ L 0.24-0.36 xqfz=652) EOSINOPHILS ABSOLUTE COUNT (BEAKER) (test 0.11 K/ L 0.04-0.36 uxlg=954) BASOPHILS ABSOLUTE COUNT (BEAKER) (test 0.01 K/ L 0.01-0.08 wbol=581) IMMATURE GRANULOCYTES-RELATIVE PERCENT (BEAKER) 0 % 0-1 (test zkrf=3826) POCT-GLUCOSE [id number] 00:23:00 Test Item Value Reference Range Comments POC-GLUCOSE METER (BEAKER) 111 mg/dL 70-110 TESTED AT [facility] [address] [place] [address] (test lipi=1003) [facility] [address] MR, MRA, BRAIN, WITHOUT [id number] 20:13:00Reason for exam:-> Ischemic Stroke EvaluationFINAL REPORT MRA Head CLINICAL HISTORY: Stroke TECHNIQUE: MRA of the head utilizing 3-D mduu-mj-ikwrhv technique, with 3-D reconstructions. COMPARISON: None FINDINGS: There is noevidence of intracranial aneurysm, focal stenosis, or major branch vessel occlusion. There is a origin of the right posterior cerebral artery. IMPRESSION: No evidence for a major upper [place] of Willisproximal branch vessel occlusion. MRA Neck CLINICAL HISTORY: Stroke TECHNIQUE: MRA of the neck utilizing 2-D and 3-D ccnq-bw-bqresg technique, with 3-D reconstructions. COMPARISON: None FINDINGS: Thecarotid arteries in the neck are patent including their bifurcations. There is antegrade flow in the vertebral arteries in the neck. IMPRESSION: No evidence of hemodynamically significant stenosis in the cervical carotid or vertebral arteries by NASCET criteria. Signed: Madeleine Mendoza MDReport Verified Date/Time: 12/08/2017 20:13:50 Reading Location: [facility] Radiology Reading Room MR, MRA, NECK, WITHOUT IV [id number] 20:13: 00Reason for exam:->Ischemic Stroke EvaluationFINAL REPORT MRA Head CLINICAL HISTORY: Stroke TECHNIQUE: MRA of the head utilizing 3-D rcds-je-bjncvu technique, with 3-D reconstructions. COMPARISON: None FINDINGS: There is noevidence of intracranial aneurysm, focal stenosis, or major branch vessel occlusion. There is a origin of the right posterior cerebral artery. IMPRESSION: No evidence for a major upper [place] of Willisproximal branch vessel occlusion. MRA Neck CLINICAL HISTORY: Stroke TECHNIQUE: MRA of the neck utilizing 2-D and 3-D oubs-zy-hqiurb technique, with 3-D reconstructions. COMPARISON: None FINDINGS: Thecarotid arteries in the neck are patent including their bifurcations. There is antegrade flow in the vertebral arteries in the neck. IMPRESSION: No evidence of hemodynamically significant stenosis in the cervical carotid or vertebral arteries by NASCET criteria. Signed: Madeleine Mendoza Verified Date/Time: 12/08/2017 20:13: 50 Reading Location: [facility] Reading Room MR, BRAIN, WITHOUT [id number] 20:02:00Reason for exam:->StrokeWhat is the patient's sedation requirement?->No SedationFINAL REPORT MRI Brain without contrast Clinical History: [...] appear patent. IMPRESSION: No evidence of acute infarct , hemorrhage, or hydrocephalus. Signed: Madeleine Mendoza Verified Date/ Time: 12/08/2017 20:02:46 Reading Location: [facility] Radiology Reading Room 08:02 PMPOCT-GLUCOSE [id number] 15:23:00 Test Item Value Reference Range Comments POC-GLUCOSE METER (MILAGROS) 106 mg/dL 70-110 TESTED AT [address] (test owts=7061) [facility] [address] HEMOGLOBIN [id number] 11:57:00 Test Item Value Reference Range Comments HEMOGLOBIN A1C (BEAKER) (test ofls=151) 6.6 % 4.3-6.1 FastingTROPONIN [id number] 09:50:00 Test Item Value Reference Range Comments TROPONIN I (BEAKER) (test mztc=111) < ng/mL 0.00-0.03 Troponin I (TnI) levels [...] acidosis, acute neurological disease, and persistent tachyarrhythmia.POCT-GLUCOSE [id number] 06:23:00 Test Item Value Reference Range Comments POC-GLUCOSE METER (BEAKER) 110 mg/dL 70-110 TESTED AT [address] (test okdv=2312) [place] [id number] POCT-GLUCOSE [id number] 06:15:00 Test Item Value Reference Range Comments POC-GLUCOSE METER (BEAKER) 149 mg/dL 70-110 TESTED AT [address] (test whsq=7019) [facility] [address] VITAMIN B12 AND [id number] 05:50:00 Test Item Value Reference Range Comments VITAMIN B12 (BEAKER) (test eijx=919) 688 pg/mL 213-816 FOLATE (BEAKER) (test yzmc=868) 12.1 ng/mL >=7.0 TSH/FREE T4 IF [id number] 05:29:00 Test Item Value Reference Range Comments THYROID STIMULATING HORMONE (BEAKER) (test 0.66 uIU/mL 0.35-4.94 gnsi=000) BASIC METABOLIC [id number] 05:11:00 Test Item Value Reference Range Comments SODIUM (BEAKER) (test 140 meq/L 136-145 hhsh=862) POTASSIUM (BEAKER) (test 4.3 meq/L 3.5-5.1 Specimen slightly gpvs=186) hemolyzed CHLORIDE (BEAKER) (test 105 meq/L 98-107 urau=720) CO2 (BEAKER) (test 27 meq/L 22-29 qpuz=766) BLOOD UREA NITROGEN 8 mg/dL 7-21 (BEAKER) (test ckwr=848) CREATININE (BEAKER) (test 0.67 mg/dL 0.57-1.25 Specimen slightly npip=581) hemolyzed GLUCOSE RANDOM (BEAKER) 136 mg/dL 70-105 (test wigi=799) CALCIUM (BEAKER) (test 8.7 mg/dL 8.4-10.2 djdu=361) EGFR (BEAKER) (test 97 mL/min/1.73 sq m ESTIMATED GFR IS NOT szjl=0866) ACCURATE CREATININE CLEARANCE IN PREDICTING GLOMERULAR FILTRATION RATE. ESTIMATED GFR IS NOT APPLICABLE FOR DIALYSIS PATIENTS. FastingLIPID [id number] 05:11:00 Test Item Value Reference Range Comments TRIGLYCERIDES (BEAKER) (test 83 mg/dL Specimen slightly hemolyzed plxq=744) CHOLESTEROL (BEAKER) (test 140 mg/dL Specimen slightly hemolyzed emtx=432) HDL CHOLESTEROL (BEAKER) (test 38 mg/dL fdgk=601) LDL CHOLESTEROL CALCULATED 85 mg/dL (BEAKER) (test kedv=622) Triglyceride Reference Range: Low Risk <150 Borderline 150- 199 High Risk 200-499 Very High Risk >=500Cholesterol Reference Range: Low Risk <200 Borderline 200-239 High Risk > 240HDL Cholesterol Reference Range: Low Risk >=60 High Risk <40LDL Cholesterol Reference Range: Optimal <100 Near Optimal 100-129 Borderline 130-159 High 160-189 Very High >=190 FastingRAPID DRUG SCREEN, [id number] 04:34:00 Test Item Value Reference Range Comments BARBITURATE URINE (BEAKER) (test xmiz=694) Negative Negative BENZODIAZEPINE SCREEN URINE (BEAKER) (test Negative Negative qgig=220) COCAINE (METAB.) SCREEN (BEAKER) (test ivlx=1759) Negative Negative METHADONE SCREEN (BEAKER) (test njlm=6565) Negative Negative OPIATE SCREEN URINE (BEAKER) (test bhrj=898) Negative Negative CANNABINOID SCREEN URINE (BEAKER) (test marb=841) Negative Negative AMPH/METHAMPH SCREEN (BEAKER) (test oivt=9033) Negative Negative PHENCYCLIDINE SCREEN URINE (BEAKER) (test fqaz=532) Negative Negative OXYCODONE SCREEN URINE (BEAKER) (test reuw=0289) Negative Negative DRUG CUTOFF CONC.Cocaine 300 ng/mL Cannabinoid 50 ng/mL Benzodiazepine 200 ng/mLBarbiturate 200 ng/ mLPhencyclidine 25 ng/mLOpiate 300 ng/mLMethadone 300 ng/mLAmphetamine/ 1000 ng/mL MethamphetamineOxycodone 300 ng/mLThis assay provides an unconfirmed qualitative test result for the clinical management of patients in emergency situations. Chain of custody not maintained. Some oapn-ggb-iqwkyor medications, as well as adulterants, may cause inaccurate results. Clinical correlation should be applied. A more comprehensive drug screen or confirmation of a detected drug may be performed upon request.URINALYSIS W/ [id number] 04:09:00 Test Item Value Reference Range Comments COLOR (BEAKER) (test eouk=347) Yellow CLARITY (BEAKER) (test wadi=985) Clear SPECIFIC GRAVITY UA (BEAKER) (test 1.039 1.001-1.035 ikpb=620) PH UA (BEAKER) (test geqv=165) 5.5 5.0-8.0 PROTEIN UA (BEAKER) (test 10 mg/dL Negative ftjm=350) GLUCOSE UA (BEAKER) (test Negative Negative vrrj=633) KETONES UA (BEAKER) (test Negative Negative aexj=387) BILIRUBIN UA (BEAKER) (test Negative Negative gnmc=454) BLOOD UA (BEAKER) (test nlhf=537) Small Negative NITRITE UA (BEAKER) (test Negative Negative tyzf=073) LEUKOCYTE ESTERASE UA (BEAKER) Negative Negative (test vwhy=810) UROBILINOGEN UA (BEAKER) (test 0.2 mg/dL 0.2-1.0 rjdp=311) RBC UA (BEAKER) (test sgrn=661) 1 /HPF WBC UA (BEAKER) (test mjnq=474) < /HPF MUCUS (BEAKER) (test wagh=6596) Occasional SQUAMOUS EPITHELIAL (BEAKER) (test < /HPF vgpm=915) CRYSTALS, URINE (BEAKER) (test Rare ssqs=3962) SOURCE(BEAKER) (test nolx=8521) Urine, Sterile Collection CBC W/PLT COUNT & AUTO [id number] 03:54:00 Test Item Value Reference Range Comments WHITE BLOOD CELL COUNT (BEAKER) (test rudj=506) 7.2 K/ L 3.5-10.5 RED BLOOD CELL COUNT (BEAKER) (test wvzr=136) 4.10 M/ L 3.93-5.22 HEMOGLOBIN (BEAKER) (test ggho=080) 11.6 GM/DL 11.2-15.7 HEMATOCRIT (BEAKER) (test vsha=948) 37.5 % 34.1-44.9 MEAN CORPUSCULAR VOLUME (BEAKER) (test mghu=924) 91.5 fL 79.4-94.8 MEAN CORPUSCULAR HEMOGLOBIN (BEAKER) (test 28.3 pg 25.6-32.2 qzqa=299) MEAN CORPUSCULAR HEMOGLOBIN CONC (BEAKER) (test 30.9 GM/DL 32.2-35.5 ehxw=635) RED CELL DISTRIBUTION WIDTH (BEAKER) (test 14.6 % 11.7-14.4 cacf=379) PLATELET COUNT (BEAKER) (test lhqz=918) 194 K/CU MM 150-450 MEAN PLATELET VOLUME (BEAKER) (test ahhm=799) 11.7 fL 9.4-12.3 NUCLEATED RED BLOOD CELLS (BEAKER) (test 0 /100 WBC 0-0 jiiu=792) NEUTROPHILS RELATIVE PERCENT (BEAKER) (test 73 % ghjd=645) LYMPHOCYTES RELATIVE PERCENT (BEAKER) (test 21 % zgmm=199) MONOCYTES RELATIVE PERCENT (BEAKER) (test 4 % xcif=270) EOSINOPHILS RELATIVE PERCENT (BEAKER) (test 2 % plyi=239) BASOPHILS RELATIVE PERCENT (BEAKER) (test 0 % awre=983) NEUTROPHILS ABSOLUTE COUNT (BEAKER) (test 5.22 K/ L 1.56-6.13 ymmq=476) LYMPHOCYTES ABSOLUTE COUNT (BEAKER) (test 1.47 K/ L 1.18-3.74 oifr=358) MONOCYTES ABSOLUTE COUNT (BEAKER) (test 0.31 K/ L 0.24-0.36 mbpi=065) EOSINOPHILS ABSOLUTE COUNT (BEAKER) (test 0.13 K/ L 0.04-0.36 ihhd=690) BASOPHILS ABSOLUTE COUNT (BEAKER) (test 0.01 K/ L 0.01-0.08 ablv=603) IMMATURE GRANULOCYTES-RELATIVE PERCENT (BEAKER) 0 % 0-1 (test jtzu=4879) TROPONIN [id number] 23:56:00 Test Item Value Reference Range Comments TROPONIN I (BEAKER) (test jdzx=916) < ng/mL 0.00-0.03 Troponin I (TnI) levels [...] failure, acidosis, acute neurological disease, and persistent tachyarrhythmia.HEPATIC FUNCTION [id number] 23:49: 00 Test Item Value Reference Range Comments TOTAL PROTEIN (BEAKER) (test dxdj=754) 6.8 gm/dL 6.0-8.3 ALBUMIN (BEAKER) (test dnhx=9397) 3.7 g/dL 3.5-5.0 BILIRUBIN TOTAL (BEAKER) (test jrmy=108) 0.4 mg/dL 0.2-1.2 BILIRUBIN DIRECT (BEAKER) (test xncy=508) 0.2 mg/dL 0.1-0.5 ALKALINE PHOSPHATASE (BEAKER) (test nlba=948) 75 U/L 40-150 AST (SGOT) (BEAKER) (test moqg=772) 30 U/L 5-34 ALT (SGPT) (BEAKER) (test hnsp=726) 17 U/L 6-55 PROTHROMBIN [id number] 23:40:00 Test Item Value Reference Range Comments PROTIME (BEAKER) (test kcgw=574) 15.8 seconds 11.7-14.7 INR (BEAKER) (test ueqy=028) 1.3 <=5.9 RECOMMENDED COUMADIN/WARFARIN INR THERAPY RANGESSTANDARD DOSE: 2.0 - 3.0 Includes: PROPHYLAXIS forvenous thrombosis, systemic embolization; TREATMENT for venous thrombosis and/or pulmonary embolus.HIGH RISK: Target INR is 2.5-3.5 for patients with mechanical heart valves.CBC W/PLT COUNT & AUTO [id number] 23:27:00 Test Item Value Reference Range Comments WHITE BLOOD CELL COUNT (BEAKER) (test qivz=584) 8.2 K/ L 3.5-10.5 RED BLOOD CELL COUNT (BEAKER) (test qpmd=864) 4.18 M/ L 3.93-5.22 HEMOGLOBIN (BEAKER) (test dsag=091) 11.9 GM/DL 11.2-15.7 HEMATOCRIT (BEAKER) (test hkcq=696) 38.2 % 34.1-44.9 MEAN CORPUSCULAR VOLUME (BEAKER) (test qert=420) 91.4 fL 79.4-94.8 MEAN CORPUSCULAR HEMOGLOBIN (BEAKER) (test 28.5 pg 25.6-32.2 ladp=031) MEAN CORPUSCULAR HEMOGLOBIN CONC (BEAKER) (test 31.2 GM/DL 32.2-35.5 lgsn=613) RED CELL DISTRIBUTION WIDTH (BEAKER) (test 14.6 % 11.7-14.4 qdpi=516) PLATELET COUNT (BEAKER) (test hbip=310) 199 K/CU MM 150-450 MEAN PLATELET VOLUME (BEAKER) (test sgyq=063) 11.4 fL 9.4-12.3 NUCLEATED RED BLOOD CELLS (BEAKER) (test 0 /100 WBC 0-0 jmys=168) NEUTROPHILS RELATIVE PERCENT (BEAKER) (test 74 % ybfb=169) LYMPHOCYTES RELATIVE PERCENT (BEAKER) (test 20 % gvrx=992) MONOCYTES RELATIVE PERCENT (BEAKER) (test 4 % dqbj=859) EOSINOPHILS RELATIVE PERCENT (BEAKER) (test 2 % wgfz=489) BASOPHILS RELATIVE PERCENT (BEAKER) (test 0 % ppxf=830) NEUTROPHILS ABSOLUTE COUNT (BEAKER) (test 6.05 K/ L 1.56-6.13 vvzq=701) LYMPHOCYTES ABSOLUTE COUNT (BEAKER) (test 1.64 K/ L 1.18-3.74 rrat=891) MONOCYTES ABSOLUTE COUNT (BEAKER) (test 0.33 K/ L 0.24-0.36 yywn=435) EOSINOPHILS ABSOLUTE COUNT (BEAKER) (test 0.12 K/ L 0.04-0.36 zcst=506) BASOPHILS ABSOLUTE COUNT (BEAKER) (test 0.01 K/ L 0.01-0.08 ojfl=813) IMMATURE GRANULOCYTES-RELATIVE PERCENT (BEAKER) 1 % 0-1 (test vytn=4377) RAD, CHEST, 1 VIEW, NON [id number] 21:51:00Reason for exam:->Stroke work up.Is the patient ?->UnknownShould this be performed at the bedside?- >YesFINAL REPORT Clinical History: Stroke workup Comparison Study: None Findings: The cardiac silhouette is enlarged. The lungs are within normal limits. The pleural spaces are clear. No significant bony or soft tissue abnormalities are seen. Impression: Cardiomegaly. Signed: Wellington Goodwin MDReport Verified Date/Time: 12/07/2017 21:51:29 Reading Location: [address] Consult Reading Room POCT-GLUCOSE [id number] 11:34:00 Test Item Value Reference Range Comments POC-GLUCOSE METER (BEAKER) 84 mg/dL 70-110 TESTED AT [facility] [address] [facility] (test tarb=1724) [facility] [address] [id number] 08:58:00 Test Item Value Reference Range Comments PHOSPHORUS (BEAKER) (test lqub=910) 4.4 mg/dL 2.3-4.7 [id number] 08:58:00 Test Item Value Reference Range Comments MAGNESIUM (BEAKER) (test litq=846) 2.3 mg/dL 1.6-2.6 BASIC METABOLIC [id number] 08:58:00 Test Item Value Reference Range Comments SODIUM (BEAKER) (test 142 meq/L 136-145 duys=303) POTASSIUM (BEAKER) (test 3.9 meq/L 3.5-5.1 dtkv=533) CHLORIDE (BEAKER) (test 108 meq/L 98-107 kdbp=140) CO2 (BEAKER) (test 26 meq/L 22-29 jcjq=228) BLOOD UREA NITROGEN 16 mg/dL 7-21 (BEAKER) (test yzln=294) CREATININE (BEAKER) (test 0.69 mg/dL 0.57-1.25 htli=710) GLUCOSE RANDOM (BEAKER) 86 mg/dL 70-105 (test xtam=366) CALCIUM (BEAKER) (test 8.6 mg/dL 8.4-10.2 ursz=345) EGFR (BEAKER) (test 94 mL/min/1.73 sq m ESTIMATED GFR IS NOT hqgj=3995) ACCURATE CREATININE CLEARANCE IN PREDICTING GLOMERULAR FILTRATION RATE. ESTIMATED GFR IS NOT APPLICABLE FOR DIALYSIS PATIENTS. HEPATIC FUNCTION [id number] 08:58:00 Test Item Value Reference Range Comments TOTAL PROTEIN (BEAKER) (test ceal=753) 6.8 gm/dL 6.0-8.3 ALBUMIN (BEAKER) (test wqqw=2730) 3.6 g/dL 3.5-5.0 BILIRUBIN TOTAL (BEAKER) (test qcvi=817) 0.4 mg/dL 0.2-1.2 BILIRUBIN DIRECT (BEAKER) (test xnom=801) 0.2 mg/dL 0.1-0.5 ALKALINE PHOSPHATASE (BEAKER) (test llxe=161) 59 U/L 40-150 AST (SGOT) (BEAKER) (test elzi=879) 24 U/L 5-34 ALT (SGPT) (BEAKER) (test knlk=932) 17 U/L 6-55 POCT-GLUCOSE [id number] 08:20:00 Test Item Value Reference Range Comments POC-GLUCOSE METER (BEAKER) 143 mg/dL 70-110 TESTED AT [address] (test qiwj=3014) [facility] [address] PROTHROMBIN [id number] 05:55:00 Test Item Value Reference Range Comments PROTIME (BEAKER) (test crup=350) 13.4 seconds 11.7-14.7 INR (BEAKER) (test nqpo=734) 1.0 <=5.9 RECOMMENDED COUMADIN/WARFARIN INR THERAPY RANGESSTANDARD DOSE: 2.0 - 3.0 Includes: PROPHYLAXIS forvenous thrombosis, systemic embolization; TREATMENT for venous thrombosis and/or pulmonary embolus.HIGH RISK: Target INR is 2.5-3.5 for patients with mechanical heart valves.POCT-GLUCOSE [id number] 20:32:00 Test Item Value Reference Range Comments POC-GLUCOSE METER (BEAKER) 90 mg/dL 70-110 TESTED AT [address] (test waoq=0859) [facility] [address] POCT-GLUCOSE [id number] 16:47:00 Test Item Value Reference Range Comments POC-GLUCOSE METER (BEAKER) 79 mg/dL 70-110 TESTED AT [facility] [address] [facility] (test yewp=2751) [facility] [address] POCT-GLUCOSE [id number] 07:47:00 Test Item Value Reference Range Comments POC-GLUCOSE METER (BEAKER) 97 mg/dL 70-110 TESTED AT [facility] [address] [facility] (test nlhx=3164) [facility] [address] TROPONIN [id number] 07:02:00 Test Item Value Reference Range Comments TROPONIN I (BEAKER) (test qztw=795) < ng/mL 0.00-0.03 Troponin I (TnI) levels [...] failure, acidosis, acute neurological disease, and persistent tachyarrhythmia.[id number] 07:00:00 Test Item Value Reference Range Comments PHOSPHORUS (BEAKER) (test lczc=965) 5.0 mg/dL 2.3-4.7 [id number] 07:00:00 Test Item Value Reference Range Comments MAGNESIUM (BEAKER) (test udnf=015) 1.9 mg/dL 1.6-2.6 BASIC METABOLIC [id number] 07:00:00 Test Item Value Reference Range Comments SODIUM (BEAKER) (test 141 meq/L 136-145 tsvj=085) POTASSIUM (BEAKER) (test 4.0 meq/L 3.5-5.1 szpd=105) CHLORIDE (BEAKER) (test 106 meq/L 98-107 iped=134) CO2 (BEAKER) (test 25 meq/L 22-29 scmq=505) BLOOD UREA NITROGEN 14 mg/dL 7-21 (BEAKER) (test pmyt=350) CREATININE (BEAKER) (test 0.72 mg/dL 0.57-1.25 qwnt=584) GLUCOSE RANDOM (BEAKER) 109 mg/dL 70-105 (test bezh=687) CALCIUM (BEAKER) (test 9.5 mg/dL 8.4-10.2 jncw=045) EGFR (BEAKER) (test 89 mL/min/1.73 sq m ESTIMATED GFR IS NOT gajc=4092) ACCURATE CREATININE CLEARANCE IN PREDICTING GLOMERULAR FILTRATION RATE. ESTIMATED GFR IS NOT APPLICABLE FOR DIALYSIS PATIENTS. HEPATIC FUNCTION [id number] 07:00:00 Test Item Value Reference Range Comments TOTAL PROTEIN (BEAKER) (test ccys=379) 7.7 gm/dL 6.0-8.3 ALBUMIN (BEAKER) (test aegm=3942) 4.0 g/dL 3.5-5.0 BILIRUBIN TOTAL (BEAKER) (test brgl=062) 0.5 mg/dL 0.2-1.2 BILIRUBIN DIRECT (BEAKER) (test ublz=475) 0.2 mg/dL 0.1-0.5 ALKALINE PHOSPHATASE (BEAKER) (test hycp=551) 69 U/L 40-150 AST (SGOT) (BEAKER) (test swfa=546) 34 U/L 5-34 ALT (SGPT) (BEAKER) (test iyfw=084) 21 U/L 6-55 PROTHROMBIN [id number] 06:31:00 Test Item Value Reference Range Comments PROTIME (BEAKER) (test pukv=792) 14.0 seconds 11.7-14.7 INR (BEAKER) (test wyex=388) 1.1 <=5.9 RECOMMENDED COUMADIN/WARFARIN INR THERAPY RANGESSTANDARD DOSE: 2.0 - 3.0 Includes: PROPHYLAXIS forvenous thrombosis, systemic embolization; TREATMENT for venous thrombosis and/or pulmonary embolus.HIGH RISK: Target INR is 2.5-3.5 for patients with mechanical heart valves.CBC W/PLT COUNT & AUTO [id number] 06:28:00 Test Item Value Reference Range Comments WHITE BLOOD CELL COUNT (BEAKER) (test udcf=618) 8.9 K/ L 3.5-10.5 RED BLOOD CELL COUNT (BEAKER) (test bhkq=177) 4.55 M/ L 3.93-5.22 HEMOGLOBIN (BEAKER) (test xdva=222) 13.0 GM/DL 11.2-15.7 HEMATOCRIT (BEAKER) (test mhue=499) 42.0 % 34.1-44.9 MEAN CORPUSCULAR VOLUME (BEAKER) (test szwj=153) 92.3 fL 79.4-94.8 MEAN CORPUSCULAR HEMOGLOBIN (BEAKER) (test 28.6 pg 25.6-32.2 znyv=981) MEAN CORPUSCULAR HEMOGLOBIN CONC (BEAKER) (test 31.0 GM/DL 32.2-35.5 azbp=931) RED CELL DISTRIBUTION WIDTH (BEAKER) (test 13.9 % 11.7-14.4 zwdk=431) PLATELET COUNT (BEAKER) (test thyb=321) 202 K/CU MM 150-450 MEAN PLATELET VOLUME (BEAKER) (test ctxv=489) 12.6 fL 9.4-12.3 NUCLEATED RED BLOOD CELLS (BEAKER) (test 0 /100 WBC 0-0 dcbe=830) NEUTROPHILS RELATIVE PERCENT (BEAKER) (test 70 % nqnz=349) LYMPHOCYTES RELATIVE PERCENT (BEAKER) (test 23 % ofkt=468) MONOCYTES RELATIVE PERCENT (BEAKER) (test 4 % hpxf=987) EOSINOPHILS RELATIVE PERCENT (BEAKER) (test 3 % jrcw=363) BASOPHILS RELATIVE PERCENT (BEAKER) (test 0 % qqlt=635) NEUTROPHILS ABSOLUTE COUNT (BEAKER) (test 6.19 K/ L 1.56-6.13 malb=170) LYMPHOCYTES ABSOLUTE COUNT (BEAKER) (test 2.03 K/ L 1.18-3.74 ssfw=438) MONOCYTES ABSOLUTE COUNT (BEAKER) (test 0.37 K/ L 0.24-0.36 wrbg=490) EOSINOPHILS ABSOLUTE COUNT (BEAKER) (test 0.24 K/ L 0.04-0.36 sqih=932) BASOPHILS ABSOLUTE COUNT (BEAKER) (test 0.02 K/ L 0.01-0.08 shzi=591) IMMATURE GRANULOCYTES-RELATIVE PERCENT (BEAKER) 0 % 0-1 (test muas=7038) CREATINE KINASE (CK), TOTAL AND [id number] 01:39:00 Test Item Value Reference Range Comments CREATINE KINASE TOTAL (BEAKER) (test ietg=147) 55 U/L 29-200 CREATINE KINASE-MB (BEAKER) (test twvt=284) 1.1 ng/mL 0.0-6.6 CREATINE KINASE-MB INDEX (BEAKER) (test wmsj=234) 2.0 % CK-MB Reference Range:<6.7 Normal6.7-10.0 Borderline>10.0 AbnormalTROPONIN [id number] 01:39:00 Test Item Value Reference Range Comments TROPONIN I (BEAKER) (test yqbw=357) < ng/mL 0.00-0.03 Troponin I (TnI) levels [...] acidosis, acute neurological disease, and persistent tachyarrhythmia.POCT-GLUCOSE [id number] 12:39:00 Test Item Value Reference Range Comments POC-GLUCOSE METER (BEAKER) 80 mg/dL 70-110 TESTED AT [address] (test ehjb=8144) [place] [address] POCT-GLUCOSE [id number] 07:07:00 Test Item Value Reference Range Comments POC-GLUCOSE METER (BEAKER) 100 mg/dL 70-110 TESTED AT [address] (test dmvf=7131) [place] [address] POCT-GLUCOSE [id number] 21:12:00 Test Item Value Reference Range Comments POC-GLUCOSE METER (BEAKER) 138 mg/dL 70-110 TESTED AT [address] (test okrj=7231) [place] [address] POCT-GLUCOSE [id number] 12:04:00 Test Item Value Reference Range Comments POC-GLUCOSE METER (BEAKER) 113 mg/dL 70-110 TESTED AT [address] (test rxag=0321) [place] [address] BASIC METABOLIC [id number] 04:26:00 Test Item Value Reference Range Comments SODIUM (BEAKER) (test 141 meq/L 136-145 hggv=110) POTASSIUM (BEAKER) (test 4.2 meq/L 3.5-5.1 Specimen moderately mhce=327) hemolyzed CHLORIDE (BEAKER) (test 107 meq/L 98-107 fycj=056) CO2 (BEAKER) (test 25 meq/L 22-29 bzlh=459) BLOOD UREA NITROGEN 13 mg/dL 7-21 (BEAKER) (test udad=704) CREATININE (BEAKER) (test 0.61 mg/dL 0.57-1.25 Specimen moderately pjae=668) hemolyzed GLUCOSE RANDOM (BEAKER) 93 mg/dL 70-105 (test oszo=272) CALCIUM (BEAKER) (test 9.0 mg/dL 8.4-10.2 nuxe=655) EGFR (BEAKER) (test 108 mL/min/1.73 sq m ESTIMATED GFR IS NOT ohlz=8146) ACCURATE CREATININE CLEARANCE IN PREDICTING GLOMERULAR FILTRATION RATE. ESTIMATED GFR IS NOT APPLICABLE FOR DIALYSIS PATIENTS. CBC W/PLT COUNT & AUTO [id number] 04:02:00 Test Item Value Reference Range Comments WHITE BLOOD CELL COUNT (BEAKER) (test ixao=692) 8.4 K/ L 3.5-10.5 RED BLOOD CELL COUNT (BEAKER) (test wrtx=516) 4.15 M/ L 3.93-5.22 HEMOGLOBIN (BEAKER) (test jgvg=948) 11.8 GM/DL 11.2-15.7 HEMATOCRIT (BEAKER) (test hacr=772) 37.9 % 34.1-44.9 MEAN CORPUSCULAR VOLUME (BEAKER) (test ebci=033) 91.3 fL 79.4-94.8 MEAN CORPUSCULAR HEMOGLOBIN (BEAKER) (test 28.4 pg 25.6-32.2 xnwq=466) MEAN CORPUSCULAR HEMOGLOBIN CONC (BEAKER) (test 31.1 GM/DL 32.2-35.5 ljdo=987) RED CELL DISTRIBUTION WIDTH (BEAKER) (test 14.1 % 11.7-14.4 joys=426) PLATELET COUNT (BEAKER) (test mnko=488) 200 K/CU MM 150-450 MEAN PLATELET VOLUME (BEAKER) (test benm=985) 11.9 fL 9.4-12.3 NUCLEATED RED BLOOD CELLS (BEAKER) (test 0 /100 WBC 0-0 bnej=328) NEUTROPHILS RELATIVE PERCENT (BEAKER) (test 73 % auvn=646) LYMPHOCYTES RELATIVE PERCENT (BEAKER) (test 19 % wcte=060) MONOCYTES RELATIVE PERCENT (BEAKER) (test 5 % mqdl=618) EOSINOPHILS RELATIVE PERCENT (BEAKER) (test 3 % fmmq=695) BASOPHILS RELATIVE PERCENT (BEAKER) (test 0 % avcj=460) NEUTROPHILS ABSOLUTE COUNT (BEAKER) (test 6.08 K/ L 1.56-6.13 nxxz=531) LYMPHOCYTES ABSOLUTE COUNT (BEAKER) (test 1.62 K/ L 1.18-3.74 mbce=010) MONOCYTES ABSOLUTE COUNT (BEAKER) (test 0.39 K/ L 0.24-0.36 wdze=897) EOSINOPHILS ABSOLUTE COUNT (BEAKER) (test 0.24 K/ L 0.04-0.36 tdqt=354) BASOPHILS ABSOLUTE COUNT (BEAKER) (test 0.01 K/ L 0.01-0.08 shpq=954) IMMATURE GRANULOCYTES-RELATIVE PERCENT (BEAKER) 1 % 0-1 (test eect=3215) CLOSTRIDIUM DIFFICILE TOXIN [id number] 13:44:00 Test Item Value Reference Range Comments CLOSTRIDIUM DIFFICILE TOXIN, PCR (BEAKER) (test Not Detected Not Detected tegh=3571) This qualitative real-time polymerase chain reaction assay [...] a positive result is not recommended.CT, CTANGIO [id number] 06:59:00Addendum BeginsREPORT STATUS:A Three-dimensional post intravenous contrast images of the cerebral vasculature were created on a free standing workstation for better visualization of cerebral vascular anatomy and pathology. Signed: Skip Gardner MDReport Verified Date/Time: 04/12/2017 06:59:20 Reading Location: [address] Consult Reading RoomAddendum EndsFINAL REPORT Noncontrast CT [...] Gardner Verified Date/Time: 04/07/2017 01:12:44 Reading Location: [address] Consult Reading Room BASIC METABOLIC [id number] 05:37:00 Test Item Value Reference Range Comments SODIUM (BEAKER) (test 142 meq/L 136-145 docj=603) POTASSIUM (BEAKER) (test 3.7 meq/L 3.5-5.1 Specimen slightly vfsx=543) hemolyzed CHLORIDE (BEAKER) (test 105 meq/L 98-107 iniv=811) CO2 (BEAKER) (test 27 meq/L 22-29 wocg=444) BLOOD UREA NITROGEN 11 mg/dL 7-21 (BEAKER) (test yexn=529) CREATININE (BEAKER) (test 0.66 mg/dL 0.57-1.25 Specimen slightly urdv=162) hemolyzed GLUCOSE RANDOM (BEAKER) 97 mg/dL 70-105 (test hhrc=081) CALCIUM (BEAKER) (test 9.2 mg/dL 8.4-10.2 bqhl=688) EGFR (BEAKER) (test 99 mL/min/1.73 sq m ESTIMATED GFR IS NOT wuuj=2638) ACCURATE CREATININE CLEARANCE IN PREDICTING GLOMERULAR FILTRATION RATE. ESTIMATED GFR IS NOT APPLICABLE FOR DIALYSIS PATIENTS. CBC (HEMOGRAM ONLY)2017-04-12 05:17:00 Test Item Value Reference Range Comments WHITE BLOOD CELL COUNT (BEAKER) (test szxk=017) 7.7 K/ L 3.5-10.5 RED BLOOD CELL COUNT (BEAKER) (test ztif=837) 4.17 M/ L 3.93-5.22 HEMOGLOBIN (BEAKER) (test jwsc=428) 12.0 GM/DL 11.2-15.7 HEMATOCRIT (BEAKER) (test ksen=400) 38.0 % 34.1-44.9 MEAN CORPUSCULAR VOLUME (BEAKER) (test obpt=351) 91.1 fL 79.4-94.8 MEAN CORPUSCULAR HEMOGLOBIN (BEAKER) (test 28.8 pg 25.6-32.2 hddl=476) MEAN CORPUSCULAR HEMOGLOBIN CONC (BEAKER) (test 31.6 GM/DL 32.2-35.5 dzlb=833) RED CELL DISTRIBUTION WIDTH (BEAKER) (test 14.0 % 11.7-14.4 bomj=599) PLATELET COUNT (BEAKER) (test ddwa=370) 219 K/CU MM 150-450 MEAN PLATELET VOLUME (BEAKER) (test nwxv=542) 11.6 fL 9.4-12.3 NUCLEATED RED BLOOD CELLS (BEAKER) (test 0 /100 WBC 0-0 grhh=123) POCT-GLUCOSE [id number] 17:55:00 Test Item Value Reference Range Comments POC-GLUCOSE METER (BEAKER) 111 mg/dL 70-110 TESTED AT [address] (test bbaa=2915) [facility] [address] POCT-GLUCOSE [id number] 12:02:00 Test Item Value Reference Range Comments POC-GLUCOSE METER (BEAKER) 100 mg/dL 70-110 TESTED AT [address] (test uxob=8945) [place] [id number] POCT-GLUCOSE [id number] 07:50:00 Test Item Value Reference Range Comments POC-GLUCOSE METER (BEAKER) 110 mg/dL 70-110 TESTED AT [address] (test ceph=1688) [place] [id number] POCT-GLUCOSE [id number] 16:56:00 Test Item Value Reference Range Comments POC-GLUCOSE METER (BEAKER) 104 mg/dL 70-110 TESTED AT [address] (test ipxs=9106) [facility] [address] POCT-GLUCOSE [id number] 12:22:00 Test Item Value Reference Range Comments POC-GLUCOSE METER (BEAKER) 84 mg/dL 70-110 TESTED AT [address] (test rtlx=7892) [place] [id number] HEMOGLOBIN [id number] 08:46:00 Test Item Value Reference Range Comments HEMOGLOBIN A1C (BEAKER) (test gytl=646) 6.2 % 4.3-6.1 BASIC METABOLIC [id number] 06:42:00 Test Item Value Reference Range Comments SODIUM (BEAKER) (test 142 meq/L 136-145 yeif=096) POTASSIUM (BEAKER) (test 4.1 meq/L 3.5-5.1 Specimen slightly lqkt=634) hemolyzed CHLORIDE (BEAKER) (test 104 meq/L 98-107 kckw=006) CO2 (BEAKER) (test 28 meq/L 22-29 dlhf=906) BLOOD UREA NITROGEN 9 mg/dL 7-21 (BEAKER) (test zjai=503) CREATININE (BEAKER) (test 0.60 mg/dL 0.57-1.25 Specimen slightly uauv=181) hemolyzed GLUCOSE RANDOM (BEAKER) 96 mg/dL 70-105 (test wrkt=645) CALCIUM (BEAKER) (test 9.1 mg/dL 8.4-10.2 qyxi=283) EGFR (BEAKER) (test 110 mL/min/1.73 sq m ESTIMATED GFR IS NOT hgwt=8159) ACCURATE CREATININE CLEARANCE IN PREDICTING GLOMERULAR FILTRATION RATE. ESTIMATED GFR IS NOT APPLICABLE FOR DIALYSIS PATIENTS. CBC W/PLT COUNT & AUTO [id number] 06:19:00 Test Item Value Reference Range Comments WHITE BLOOD CELL COUNT (BEAKER) (test qtta=969) 7.5 K/ L 3.5-10.5 RED BLOOD CELL COUNT (BEAKER) (test mvmc=431) 4.12 M/ L 3.93-5.22 HEMOGLOBIN (BEAKER) (test jvkq=524) 11.8 GM/DL 11.2-15.7 HEMATOCRIT (BEAKER) (test zodu=748) 37.6 % 34.1-44.9 MEAN CORPUSCULAR VOLUME (BEAKER) (test yjen=177) 91.3 fL 79.4-94.8 MEAN CORPUSCULAR HEMOGLOBIN (BEAKER) (test 28.6 pg 25.6-32.2 jrtg=664) MEAN CORPUSCULAR HEMOGLOBIN CONC (BEAKER) (test 31.4 GM/DL 32.2-35.5 ezaz=033) RED CELL DISTRIBUTION WIDTH (BEAKER) (test 13.8 % 11.7-14.4 gxsc=824) PLATELET COUNT (BEAKER) (test ewun=510) 192 K/CU MM 150-450 MEAN PLATELET VOLUME (BEAKER) (test gpcd=529) 11.6 fL 9.4-12.3 NUCLEATED RED BLOOD CELLS (BEAKER) (test 0 /100 WBC 0-0 wdeb=091) NEUTROPHILS RELATIVE PERCENT (BEAKER) (test 77 % bwlv=961) LYMPHOCYTES RELATIVE PERCENT (BEAKER) (test 16 % tskg=857) MONOCYTES RELATIVE PERCENT (BEAKER) (test 4 % nsox=069) EOSINOPHILS RELATIVE PERCENT (BEAKER) (test 2 % dkou=935) BASOPHILS RELATIVE PERCENT (BEAKER) (test 0 % kfpj=025) NEUTROPHILS ABSOLUTE COUNT (BEAKER) (test 5.82 K/ L 1.56-6.13 jtpz=628) LYMPHOCYTES ABSOLUTE COUNT (BEAKER) (test 1.21 K/ L 1.18-3.74 lhjs=093) MONOCYTES ABSOLUTE COUNT (BEAKER) (test 0.31 K/ L 0.24-0.36 tvun=060) EOSINOPHILS ABSOLUTE COUNT (BEAKER) (test 0.15 K/ L 0.04-0.36 qcou=153) BASOPHILS ABSOLUTE COUNT (BEAKER) (test 0.01 K/ L 0.01-0.08 ahmu=254) IMMATURE GRANULOCYTES-RELATIVE PERCENT (BEAKER) 1 % 0-1 (test deno=3435) POCT-GLUCOSE [id number] 12:07:00 Test Item Value Reference Range Comments POC-GLUCOSE METER (BEAKER) 110 mg/dL 70-110 TESTED AT [facility] [address] [facility] (test gomg=7105) [facility] [address] CT, BRAIN, WITHOUT [id number] 06:55:00FINAL REPORT Clinical history : Decreased alertnessComparison [...] Impression: No acute abnormalities. Signed: Skip Gardner MDReport Verified Date/Time: 04/09/2017 06 :55:25 Reading Location: [facility] [id number] Consult Reading Room BASIC METABOLIC [id number] 05:57:00 Test Item Value Reference Range Comments SODIUM (BEAKER) (test 140 meq/L 136-145 estq=456) POTASSIUM (BEAKER) (test 3.7 meq/L 3.5-5.1 oaqk=634) CHLORIDE (BEAKER) (test 103 meq/L 98-107 ktur=423) CO2 (BEAKER) (test 29 meq/L 22-29 wnqk=135) BLOOD UREA NITROGEN 7 mg/dL 7-21 (BEAKER) (test egus=511) CREATININE (BEAKER) (test 0.56 mg/dL 0.57-1.25 osxm=356) GLUCOSE RANDOM (BEAKER) 110 mg/dL 70-105 (test rsmz=941) CALCIUM (BEAKER) (test 8.7 mg/dL 8.4-10.2 dbcx=505) EGFR (BEAKER) (test 119 mL/min/1.73 sq m ESTIMATED GFR IS NOT tqvh=3765) ACCURATE CREATININE CLEARANCE IN PREDICTING GLOMERULAR FILTRATION RATE. ESTIMATED GFR IS NOT APPLICABLE FOR DIALYSIS PATIENTS. CBC W/PLT COUNT & AUTO [id number] 04:54:00 Test Item Value Reference Range Comments WHITE BLOOD CELL COUNT (BEAKER) (test krvz=307) 8.1 K/ L 3.5-10.5 RED BLOOD CELL COUNT (BEAKER) (test saug=676) 4.07 M/ L 3.93-5.22 HEMOGLOBIN (BEAKER) (test arhx=637) 11.6 GM/DL 11.2-15.7 HEMATOCRIT (BEAKER) (test htff=081) 37.3 % 34.1-44.9 MEAN CORPUSCULAR VOLUME (BEAKER) (test vfce=281) 91.6 fL 79.4-94.8 MEAN CORPUSCULAR HEMOGLOBIN (BEAKER) (test 28.5 pg 25.6-32.2 vcbo=297) MEAN CORPUSCULAR HEMOGLOBIN CONC (BEAKER) (test 31.1 GM/DL 32.2-35.5 rjse=624) RED CELL DISTRIBUTION WIDTH (BEAKER) (test 13.6 % 11.7-14.4 tutz=054) PLATELET COUNT (BEAKER) (test nxcg=988) 171 K/CU MM 150-450 MEAN PLATELET VOLUME (BEAKER) (test rrom=207) 11.3 fL 9.4-12.3 NUCLEATED RED BLOOD CELLS (BEAKER) (test 0 /100 WBC 0-0 ankj=687) NEUTROPHILS RELATIVE PERCENT (BEAKER) (test 77 % kkuf=701) LYMPHOCYTES RELATIVE PERCENT (BEAKER) (test 16 % jtqx=389) MONOCYTES RELATIVE PERCENT (BEAKER) (test 5 % oswp=611) EOSINOPHILS RELATIVE PERCENT (BEAKER) (test 2 % fnzs=829) BASOPHILS RELATIVE PERCENT (BEAKER) (test 0 % casj=586) NEUTROPHILS ABSOLUTE COUNT (BEAKER) (test 6.20 K/ L 1.56-6.13 ipoi=310) LYMPHOCYTES ABSOLUTE COUNT (BEAKER) (test 1.30 K/ L 1.18-3.74 edxi=983) MONOCYTES ABSOLUTE COUNT (BEAKER) (test 0.38 K/ L 0.24-0.36 qrxe=317) EOSINOPHILS ABSOLUTE COUNT (BEAKER) (test 0.14 K/ L 0.04-0.36 jkej=872) BASOPHILS ABSOLUTE COUNT (BEAKER) (test 0.01 K/ L 0.01-0.08 uush=647) IMMATURE GRANULOCYTES-RELATIVE PERCENT (BEAKER) 1 % 0-1 (test qbjo=0877) POCT-GLUCOSE [id number] 01:34:00 Test Item Value Reference Range Comments POC-GLUCOSE METER (BEAKER) 92 mg/dL 70-110 TESTED AT [address] (test miwv=8541) [place] [id number] POCT-GLUCOSE [id number] 19:20:00 Test Item Value Reference Range Comments POC-GLUCOSE METER (BEAKER) 85 mg/dL 70-110 TESTED AT [address] (test skhe=3116) [place] [address] [address], BRAIN, WITHOUT [id number] 15:47:00FINAL REPORT CT head without contrast. Comparisons: [...] Tijerinaeport Verified Date/Time: 04/08/2017 15:47:42 POCT- GLUCOSE [id number] 12:44:00 Test Item Value Reference Range Comments POC-GLUCOSE METER (BEAKER) 94 mg/dL 70-110 TESTED AT [facility] [address] [facility] (test lybh=0843) [facility] [address] BASIC METABOLIC [id number] 05:05:00 Test Item Value Reference Range Comments SODIUM (BEAKER) (test 142 meq/L 136-145 npvd=579) POTASSIUM (BEAKER) (test 4.0 meq/L 3.5-5.1 prxh=867) CHLORIDE (BEAKER) (test 107 meq/L 98-107 lznj=577) CO2 (BEAKER) (test 27 meq/L 22-29 trob=203) BLOOD UREA NITROGEN 9 mg/dL 7-21 (BEAKER) (test dqzc=248) CREATININE (BEAKER) (test 0.59 mg/dL 0.57-1.25 nibv=929) GLUCOSE RANDOM (BEAKER) 105 mg/dL 70-105 (test wxbe=694) CALCIUM (BEAKER) (test 8.7 mg/dL 8.4-10.2 xkcs=277) EGFR (BEAKER) (test 112 mL/min/1.73 sq m ESTIMATED GFR IS NOT xova=7750) ACCURATE CREATININE CLEARANCE IN PREDICTING GLOMERULAR FILTRATION RATE. ESTIMATED GFR IS NOT APPLICABLE FOR DIALYSIS PATIENTS. CBC W/PLT COUNT & AUTO [id number] 04:28:00 Test Item Value Reference Range Comments WHITE BLOOD CELL COUNT (BEAKER) (test naiy=129) 7.1 K/ L 3.5-10.5 RED BLOOD CELL COUNT (BEAKER) (test vcth=698) 3.90 M/ L 3.93-5.22 HEMOGLOBIN (BEAKER) (test yrwh=336) 11.0 GM/DL 11.2-15.7 HEMATOCRIT (BEAKER) (test btgm=833) 36.6 % 34.1-44.9 MEAN CORPUSCULAR VOLUME (BEAKER) (test nuji=038) 93.8 fL 79.4-94.8 MEAN CORPUSCULAR HEMOGLOBIN (BEAKER) (test 28.2 pg 25.6-32.2 vpkg=916) MEAN CORPUSCULAR HEMOGLOBIN CONC (BEAKER) (test 30.1 GM/DL 32.2-35.5 gwkb=155) RED CELL DISTRIBUTION WIDTH (BEAKER) (test 14.2 % 11.7-14.4 ecqe=053) PLATELET COUNT (BEAKER) (test xbau=562) 187 K/CU MM 150-450 MEAN PLATELET VOLUME (BEAKER) (test cayh=856) 10.9 fL 9.4-12.3 NUCLEATED RED BLOOD CELLS (BEAKER) (test 0 /100 WBC 0-0 qypv=146) NEUTROPHILS RELATIVE PERCENT (BEAKER) (test 73 % zpom=246) LYMPHOCYTES RELATIVE PERCENT (BEAKER) (test 19 % lhus=628) MONOCYTES RELATIVE PERCENT (BEAKER) (test 5 % ezih=112) EOSINOPHILS RELATIVE PERCENT (BEAKER) (test 2 % gvun=346) BASOPHILS RELATIVE PERCENT (BEAKER) (test 0 % qgwn=430) NEUTROPHILS ABSOLUTE COUNT (BEAKER) (test 5.22 K/ L 1.56-6.13 gaza=085) LYMPHOCYTES ABSOLUTE COUNT (BEAKER) (test 1.37 K/ L 1.18-3.74 fxky=556) MONOCYTES ABSOLUTE COUNT (BEAKER) (test 0.34 K/ L 0.24-0.36 hmzc=164) EOSINOPHILS ABSOLUTE COUNT (BEAKER) (test 0.13 K/ L 0.04-0.36 jitz=390) BASOPHILS ABSOLUTE COUNT (BEAKER) (test 0.01 K/ L 0.01-0.08 oqzh=670) IMMATURE GRANULOCYTES-RELATIVE PERCENT (BEAKER) 1 % 0-1 (test fruh=5322) POCT-GLUCOSE [id number] 17:32:00 Test Item Value Reference Range Comments POC-GLUCOSE METER (BEAKER) 90 mg/dL 70-110 TESTED AT [address] (test qdfd=9756) [place] [address] POCT-GLUCOSE [id number] 12:02:00 Test Item Value Reference Range Comments POC-GLUCOSE METER (BEAKER) 91 mg/dL 70-110 TESTED AT [address] (test ezdh=5656) [place] [address] EEG AWAKE AND [id number] 11:38:00Reason for exam:->R/O subclinical seizuresDATE OF [id number] OF REPORT: [id number]: [id number]: 17- 1801Start time: 09:54Stop time: 10:18ICD-10: G 93.40CPT Code: 28027 HISTORY: 41 y.o. female with history of morbid obesity, DM2 who presented today to OSH with R sided facial droop and LUE weakness . Patient was evaluated at OSH where patient was started with tPA after normal CT. Now with acute encephalopathy MEDICATIONS THAT COULD AFFECT EEG: TECHNICAL SUMMARY: This is a digital EEG recorded with 32 input channels on a [employer] system and then reviewed with bipolar and [...] additional EEG recordings. Javi Mae MDNeurophysiology Fellow [id number] Note: I personally reviewed this EEG record in its entirety and I agreewith the details of this report. Kitty Benson MD, PhDEpilepsy Attending 11 :38 AMCREATINE KINASE (CK), TOTAL AND [id number] 09:35:00 Test Item Value Reference Range Comments CREATINE KINASE TOTAL (BEAKER) (test iwho=281) 52 U/L 29-200 CREATINE KINASE-MB (BEAKER) (test btmi=940) 1.2 ng/mL 0.0-6.6 CREATINE KINASE-MB INDEX (BEAKER) (test carz=486) 2.3 % CK-MB Reference Range:<6.7 Normal6.7-10.0 Borderline>10.0 AbnormalTROPONIN [id number] 09:31:00 Test Item Value Reference Range Comments TROPONIN I (BEAKER) (test vkjn=209) < ng/mL 0.00-0.03 Troponin I (TnI) levels [...] failure, acidosis, acute neurological disease, and persistent tachyarrhythmia.[id number] 09:28:00 Test Item Value Reference Range Comments AMMONIA (BEAKER) (test jtwa=727) 34 mol/L 18-72 TSH/FREE T4 IF [id number] 04:28:00 Test Item Value Reference Range Comments THYROID STIMULATING HORMONE (BEAKER) (test 1.12 uIU/mL 0.35-4.94 jdai=871) VITAMIN B12 AND [id number] 04:28:00 Test Item Value Reference Range Comments VITAMIN B12 (BEAKER) (test fomt=424) 417 pg/mL 213-816 FOLATE (BEAKER) (test jote=120) 13.6 ng/mL >=7.0 CBC W/PLT COUNT & AUTO [id number] 03:27:00 Test Item Value Reference Range Comments WHITE BLOOD CELL COUNT (BEAKER) (test qedu=499) 8.1 K/ L 3.5-10.5 RED BLOOD CELL COUNT (BEAKER) (test vstt=530) 3.91 M/ L 3.93-5.22 HEMOGLOBIN (BEAKER) (test sect=463) 11.4 GM/DL 11.2-15.7 HEMATOCRIT (BEAKER) (test slot=005) 35.8 % 34.1-44.9 MEAN CORPUSCULAR VOLUME (BEAKER) (test cruf=799) 91.6 fL 79.4-94.8 MEAN CORPUSCULAR HEMOGLOBIN (BEAKER) (test 29.2 pg 25.6-32.2 ggqs=878) MEAN CORPUSCULAR HEMOGLOBIN CONC (BEAKER) (test 31.8 GM/DL 32.2-35.5 pyfv=090) RED CELL DISTRIBUTION WIDTH (BEAKER) (test 14.3 % 11.7-14.4 innn=478) PLATELET COUNT (BEAKER) (test xiut=962) 166 K/CU MM 150-450 MEAN PLATELET VOLUME (BEAKER) (test jtnh=352) 12.4 fL 9.4-12.3 NUCLEATED RED BLOOD CELLS (BEAKER) (test 0 /100 WBC 0-0 betv=454) NEUTROPHILS RELATIVE PERCENT (BEAKER) (test 78 % cqld=034) LYMPHOCYTES RELATIVE PERCENT (BEAKER) (test 16 % fpxv=530) MONOCYTES RELATIVE PERCENT (BEAKER) (test 4 % dazz=329) EOSINOPHILS RELATIVE PERCENT (BEAKER) (test 1 % naoe=013) BASOPHILS RELATIVE PERCENT (BEAKER) (test 0 % vxsd=930) NEUTROPHILS ABSOLUTE COUNT (BEAKER) (test 6.27 K/ L 1.56-6.13 blqi=205) LYMPHOCYTES ABSOLUTE COUNT (BEAKER) (test 1.30 K/ L 1.18-3.74 qkcv=794) MONOCYTES ABSOLUTE COUNT (BEAKER) (test 0.32 K/ L 0.24-0.36 goyq=026) EOSINOPHILS ABSOLUTE COUNT (BEAKER) (test 0.09 K/ L 0.04-0.36 zbna=744) BASOPHILS ABSOLUTE COUNT (BEAKER) (test 0.02 K/ L 0.01-0.08 ynng=303) IMMATURE GRANULOCYTES-RELATIVE PERCENT (BEAKER) 1 % 0-1 (test iucg=0323) CREATINE KINASE (CK), TOTAL AND [id number] 03:11:00 Test Item Value Reference Range Comments CREATINE KINASE TOTAL (BEAKER) (test rngx=669) 71 U/L 29-200 CREATINE KINASE-MB (BEAKER) (test qpbc=713) 1.5 ng/mL 0.0-6.6 CREATINE KINASE-MB INDEX (BEAKER) (test ptpe=363) 2.1 % CK-MB Reference Range:<6.7 Normal6.7-10.0 Borderline>10.0 AbnormalFastingFastingTROPONIN [id number] 03:11:00 Test Item Value Reference Range Comments TROPONIN I (BEAKER) (test isbn=291) < ng/mL 0.00-0.03 Troponin I (TnI) levels [...] acute neurological disease, and persistent tachyarrhythmia.FastingBASIC METABOLIC [id number] 03:04:00 Test Item Value Reference Range Comments SODIUM (BEAKER) (test 139 meq/L 136-145 quef=267) POTASSIUM (BEAKER) (test 4.3 meq/L 3.5-5.1 Specimen moderately ryqt=972) hemolyzed CHLORIDE (BEAKER) (test 107 meq/L 98-107 fqyl=913) CO2 (BEAKER) (test 24 meq/L 22-29 razv=274) BLOOD UREA NITROGEN 12 mg/dL 7-21 (BEAKER) (test ldfu=993) CREATININE (BEAKER) (test 0.68 mg/dL 0.57-1.25 Specimen moderately rzwt=316) hemolyzed GLUCOSE RANDOM (BEAKER) 175 mg/dL 70-105 (test psoc=605) CALCIUM (BEAKER) (test 8.5 mg/dL 8.4-10.2 dcck=830) EGFR (BEAKER) (test 95 mL/min/1.73 sq m ESTIMATED GFR IS NOT jvuk=5774) ACCURATE CREATININE CLEARANCE IN PREDICTING GLOMERULAR FILTRATION RATE. ESTIMATED GFR IS NOT APPLICABLE FOR DIALYSIS PATIENTS. FastingLIPID [id number] 03:04:00 Test Item Value Reference Range Comments TRIGLYCERIDES (BEAKER) (test 99 mg/dL Specimen moderately dcta=847) hemolyzed CHOLESTEROL (BEAKER) (test 139 mg/dL Specimen moderately dezw=764) hemolyzed HDL CHOLESTEROL (BEAKER) (test 43 mg/dL esvr=195) LDL CHOLESTEROL CALCULATED 76 mg/dL (BEAKER) (test owah=368) Triglyceride Reference Range: Low Risk <150 Borderline 150- 199 High Risk 200-499 Very High Risk >=500Cholesterol Reference Range: Low Risk <200 Borderline 200-239 High Risk > 240HDL Cholesterol Reference Range: Low Risk >=60 High Risk <40LDL Cholesterol Reference Range: Optimal <100 Near Optimal 100-129 Borderline 130-159 High 160-189 Very High >=190 FastingHEPATIC FUNCTION [id number] 03:04:00 Test Item Value Reference Range Comments TOTAL PROTEIN (BEAKER) (test 7.2 gm/dL 6.0-8.3 Specimen moderately hemolyzed faxm=493) ALBUMIN (BEAKER) (test 3.4 g/dL 3.5-5.0 Specimen moderately hemolyzed iwfo=2081) BILIRUBIN TOTAL (BEAKER) (test 0.3 mg/dL 0.2-1.2 Specimen moderately hemolyzed zndm=862) BILIRUBIN DIRECT (BEAKER) 0.1 mg/dL 0.1-0.5 Specimen moderately hemolyzed (test zksr=542) ALKALINE PHOSPHATASE (BEAKER) 74 U/L 40-150 (test jyqw=515) AST (SGOT) (BEAKER) (test 37 U/L 5-34 Specimen moderately hemolyzed jgpj=660) ALT (SGPT) (BEAKER) (test 18 U/L 6-55 Specimen moderately wfeg=121) hemolyzed Fasting
--- OUTSIDE RECORDS SUMMARY | 2018-03-30 21:09 | XMS REPORT | Summary of Care ---
:1975 Author Name Michelle Christensen M.A. Address [facility] Unavailable , Care Team Providers Name Role Phone PHILL MORAES N.P. Unavailable Unavailable Michelle Christensen M.A. Unavailable Unavailable SYDNEE YIP, RORO MENDOZA Unavailable Unavailable Unavailable Unavailable Unavailable Functional Status Name Dates Details Functional status health issues are not documented Status: Name Dates Details Cognitive status health issues are not documented Status: Problems Name Dates Details Asthma (493.90, J45.909) Status: Active Obstructive sleep apnea, adult (327.23, G47.33) Status: Active Depression (311, F32.9) Status: Active Hypertension (401.9, I10) Status: Active Hyperlipidemia (272.4, E78.5) Status: Active Chronic back pain (724.5, M54.9) Status: Active GERD (gastroesophageal reflux disease) (530.81, K21.9) Status: Active History of kidney stones (V13.01, Z87.442) Status: Active Hematuria (599.70, R31.9) Status: Active Type 2 diabetes mellitus (250.00, E11.9) Status: Active Lymphedema of lower extremity (457.1, I89.0) Status: Active Vitamin D deficiency (268.9, E55.9) Status: Active Medications Name Dates Details Vitamin D (Ergocalciferol) 09769 UNIT Oral Capsule Take 1 capsule two times per week Quantity: 8 Refills: 3 PHILL MORAES N.P. Start : 21-Feb-2018 Active MetFORMIN HCl - 1000 MG Oral Tablet Refills: 0 Active AmLODIPine Besylate 10 MG Oral Tablet Refills: 0 Active Atorvastatin Calcium 40 MG Oral Tablet Refills: 0 Active Effexor XR 150 MG Oral Capsule Extended Release 24 Hour Refills: 0 Active Lisinopril 20 MG Oral Tablet Refills: 0 Active Pantoprazole Sodium 40 MG Oral Tablet Delayed Release Refills: 0 Active ProAir HFA AERS Refills: 0 Active PredniSONE TABS Refills: 0 Active Allergies and Adverse Reactions Name Dates Details orphenadrine (Allergy) Status: Active warfarin (Allergy) Status: Active Past Medical History Name Dates Details History of cerebrovascular accident (V12.54, Z86.73) Status: Resolved Procedures Procedure Dates Details History of section Completed History of Hysterectomy total Completed History of Cholecystectomy Completed History of Hernia repair Completed History of Knee surgery Completed Immunization Name Dates Details Immunizations not documented Social History Name Dates Details - Status: Name Dates Details Former smoker Vital Signs Date Test Result Details [id number] BP Systolic 155 mm[Hg] Status: Comments: Location: LUE; Position: Sitting BP Diastolic 93 mm[Hg] Status: Comments: Location: LUE; Position: Sitting Height 63 in Status: Weight 355 lb Status: Body Mass Index Calculated 62.89 kg/m2 Status: Body Surface Area Calculated 2.47 m2 Status: Temperature 98.5 f Status: Comments: Method: Oral Heart Rate 82 /min Status: Results Date Description Value Details Results not documented Plan of Care Name Dates Details Planned Observations Planned Goals not documented Planned Encounters Appointment; PHILL MORAES NP On: 28-Mar-2018 13:00 Appointment; PHILL MORAES NP On: 02-May-2018 13:00 Instructions Name Dates Details Instructions not documented Encounters Appointment; Michael Morton M.D. On: 16-Dec-2017 9:15 Encounter Diagnosis: Problem not documented Appointment; DEUCE PAK RD On: 06-Jan-2018 10:30 Encounter Diagnosis: Problem not documented Appointment; PHILL MORAES NP On: 17-Jan-2018 15:00 Encounter Diagnosis: Problem not documented Appointment; PHILL MORAES NP On: 21-Feb-2018 13:30 Encounter Diagnosis: Problem not documented
[2018-03-30 22:55] LABS: Absolute Lymphocytes (CBC) 1.9 K/uL (0.7-4.9); Absolute Monocytes 0.4 K/uL (0.1-1.3); Absolute Neutrophil 6.3 K/uL (1.8-8.0); Basophils % 0.3 % (0-1.3); Eosinophils % 1.8 % (0-4.4); Hematocrit 38.8 % (36.0-45.0); Lymphocytes % 21.6 % (15.3-44.8); MCH 28.8 pg (27.0-35.0); MPV 10.3 fL (7.6-11.3); Monocytes % 4.2 % (3.3-12.3); RBC Red Blood Cell Count 4.46 M/uL (3.86-4.86)
[2018-03-30 23:17] LABS: Urine Blood 1+ (NEG); Urine Glucose NEGATIVE (NEG); Urine Protein NEGATIVE (NEG); Urine Specific Gravity 1.025 (1.005-1.030)
[2018-03-31 00:15] LABS: Albumin 3.5 g/dL (3.4-5.0); Bilirubin Direct 0.1 mg/dL (0-0.2); Bilirubin Total 0.3 mg/dL (0.2-1.0); Potassium 3.5 mmol/L (3.5-5.1); Protein, Total 7.8 g/dL (6.4-8.2)
--- NOTE | 2018-03-31 01:17 | ER ---
Nurse's Notes [facility] Name: Kelle Calderón Age: 42 yrs Sex: Female : 1975 Arrival Date: 03/30/2018 Time: 21:06 Bed 20 Private MD: Bridgett Dhaliwal Diagnosis: Abdominal and pelvic pain Presentation: 03/30 21:11 Presenting complaint: Patient states: Right flank pain for 4 days and right groin pain aj for 1 day. Reports taking Tylenol #4 and muscle relaxers at home with no relief. Transition of care: patient was not received from another setting of care. Onset of symptoms was March 26, 2018. Risk Assessment: Do you want to hurt yourself or someone else? Patient reports no desire to harm self or others. Initial Sepsis Screen: Does the patient meet any 2 criteria? No. Patient's initial sepsis screen is negative. Does the patient have a suspected source of infection? No. Patient's initial sepsis screen is negative. Care prior to arrival: None. 21:11 Method Of Arrival: Ambulatory aj 21:11 Acuity: SIMRAN 3 aj Triage Assessment: 21:14 General: Appears in no apparent distress. uncomfortable, obese, Behavior is calm, aj cooperative, appropriate for age. Pain: Complains of pain in posterior aspect of right lateral abdomen, anterior aspect of right lateral abdomen and right femoral area. Neuro: Level of Consciousness is awake, alert, obeys commands, Oriented to person, place, time, situation, Appropriate for age. Respiratory: Airway is patent Respiratory effort is even, unlabored, Respiratory pattern is regular, symmetrical. GI: Reports nausea. Derm: Skin is intact, is healthy with good turgor, Skin is pink, warm \T\ dry. normal. 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 - Hysterectomy aj Historical: - Allergies: 21:14 Warfarin; aj - Home Meds: 21:14 albuterol sulfate 2.5 mg /3 mL (0.083 %) Inhl nebu twice a day [Active]; amlodipine 10 aj mg tab 1 tab once daily [Active]; aspirin 81 mg Oral TbEC 1 tab once daily [Active]; atorvastatin 40 mg Oral tab 1 tab once daily [Active]; gabapentin 100 mg Oral cap 3 caps 3 times per day [Active]; Linzess 145 mcg Oral cap 1 cap once daily [Active]; metformin 500 mg Oral tab 1 tab 2 times per day [Active]; pantoprazole 40 mg Oral TbEC 1 tab once daily [Active]; lisinopril 20 mg Oral tab 1 tab once daily [Active]; prednisone 5 mg Oral tab once daily [Active]; venlafaxine 75 mg Oral tab 2 times per day [Active]; Tylenol #4 Oral [Active]; Robaxin 500 mg Oral tab 2 tabs 4 times per day [Active]; - PMHx: 21:14 Asthma; Chronic pain; bells palsy; CVA; Depression; Diabetes - NIDDM; GERD; aj Hypertension; Irritable bowel syndrome; Kidney stones; lymphedema; Migraines; Sleep Apnea; - Immunization history:: Adult Immunizations up to date. - Social history:: Smoking status: Patient/guardian denies using tobacco. - Ebola Screening: : Patient negative for fever greater than or equal to 101.5 degrees Fahrenheit, and additional compatible Ebola Virus Disease symptoms Patient denies exposure to infectious person Patient denies travel to an Ebola-affected area in the 21 days before illness onset No symptoms or risks identified at this time. Screenin:20 Abuse screen: Denies threats or abuse. Denies injuries from another. Nutritional cc3 screening: No deficits noted. Tuberculosis screening: No symptoms or risk factors identified. Fall Risk Ambulatory Aid- None/Bed Rest/Nurse Assist (0 pts). Gait- Normal/Bed Rest/Wheelchair (0 pts) Mental Status- Oriented to own ability (0 pts). Assessment: 21:20 General: see triage assessment. cc3 22:47 Reassessment: Patient appears in no apparent distress at this time. Patient and/or cc3 family updated on plan of care and expected duration. Pain level reassessed. Patient is alert, oriented x 3, equal unlabored respirations, skin warm/dry/pink. 23:30 Reassessment: Patient appears in no apparent distress at this time. Patient and/or cc3 family updated on plan of care and expected duration. Pain level reassessed. Patient is alert, oriented x 3, equal unlabored respirations, skin warm/dry/pink. 03/31 00:15 Reassessment: Patient appears in no apparent distress at this time. Patient and/or cc3 family updated on plan of care and expected duration. Pain level reassessed. Patient is alert, oriented x 3, equal unlabored respirations, skin warm/dry/pink. 01:40 Reassessment: Patient appears in no apparent distress at this time. Patient and/or cc3 family updated on plan of care and expected duration. Pain level reassessed. Patient is alert, oriented x 3, equal unlabored respirations, skin warm/dry/pink. Patient discharged home with prescription given. IV cannula removed and patient left ER vitally stable by wheelchair with her . Vital Signs: 03/30 21:14 BP 148 / 90; Pulse 93; Resp 20; Temp 98.1; Pulse Ox 96% on R/A; Weight 156.49 kg; aj Height 5 ft. 3 in. (160.02 cm); 22:30 BP 136 / 91; Pulse 71; Resp 20 S; Pulse Ox 98% on R/A; cc3 23:45 BP 121 / 71; Pulse 72; Resp 17 S; Pulse Ox 97% on R/A; cc3 03/31 00:15 BP 137 / 85; Pulse 65; Resp 17 S; Pulse Ox 96% on R/A; cc3 01:30 BP 133 / 87; Pulse 68; Resp 18 S; Pulse Ox 97% on R/A; cc3 03/30 21:14 Body Mass Index 61.11 (156.49 kg, 160.02 cm) ED Course: 03/30 21:06 Patient arrived in ED. mr 21:07 Bridgett Dhaliwal is Private Physician. mr 21:12 Triage completed. aj 21:14 Arm band placed on right wrist. Patient placed in an exam room. aj 21:20 Patient has correct armband on for positive identification. Bed in low position. Call cc3 light in reach. Side rails up X 1. Pulse ox on. NIBP on. 21:24 Tami Babb is Primary Nurse. cc3 22:02 Grabiel Harper MD is Attending Physician. [facility] 22:02 Samuel Teague PA is PHCP. jr8 22:25 Inserted saline lock: 20 gauge in right hand, using aseptic technique. Blood collected. cc3 23:48 Radiology exam delayed due to lab results not completed at this time. (BUN/Creatinine). nj 03/31 00:15 Radiology exam delayed due to lab results not completed at this time. (BUN/Creatinine). nj 00:[address] via stretcher. nj 00:47 CT Abd/Pelvis - W/Contrast In Process Unspecified. EDMS 01:40 No provider procedures requiring assistance completed. IV discontinued, intact, cc3 bleeding controlled, No redness/swelling at site. Pressure dressing applied. Administered Medications: No medications were administered Outcome: 01:16 Discharge ordered by . alexander 01:40 Discharged to home via wheelchair, with family. cc3 01:40 Condition: stable 01:40 Discharge instructions given to patient, family, Instructed on discharge instructions, follow up and referral plans. medication usage, Demonstrated understanding of instructions, follow-up care, medications, Prescriptions given X 1. 01:49 Patient left the ED. cc3 Signatures: Dispatcher [employer] Coretta Alfred RN RN aj Anderson, Corey, MD MD cha Rivera, Mary mr Roszak, Josh, PA PA jrRoland Tai Charlene cc3 Corrections: (The following items were deleted from the chart) 00:16 18 23:55 Radiology exam delayed due to lab results not completed at this time. nj (BUN/Creatinine) nj
--- NOTE | 2018-03-31 01:17 | EDPHYS ---
Physician Documentation [facility] Name: Kelle Calderón Age: 42 yrs Sex: Female : 1975 Arrival Date: 03/30/2018 Time: 21:06 Bed 20 Private MD: Bridgett Dhaliwal ED Physician Grabiel Harpre HPI: 03/30 22:29 This 42 yrs old Female presents to ER via Ambulatory with complaints of R Side jr8 Pain. 22:29 The patient presents with abdominal pain. Onset: The symptoms/episode began/occurred jr8 acutely, today. The symptoms radiate to right back. Associated signs and symptoms: none. The symptoms are described as stabbing. Modifying factors: The symptoms are alleviated by nothing, the symptoms are aggravated by nothing. Severity of pain: At its worst the pain was moderate in the emergency department the pain is unchanged. The patient has not experienced similar symptoms in the past. The patient has not recently seen a physician. stated that she also feel lump on inner thigh that is tender . 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 aj Historical: - Allergies: 21:14 Warfarin; aj - Home Meds: 21:14 albuterol sulfate 2.5 mg /3 mL (0.083 %) Inhl nebu twice a day [Active]; amlodipine 10 aj mg tab 1 tab once daily [Active]; aspirin 81 mg Oral TbEC 1 tab once daily [Active]; atorvastatin 40 mg Oral tab 1 tab once daily [Active]; gabapentin 100 mg Oral cap 3 caps 3 times per day [Active]; Linzess 145 mcg Oral cap 1 cap once daily [Active]; metformin 500 mg Oral tab 1 tab 2 times per day [Active]; pantoprazole 40 mg Oral TbEC 1 tab once daily [Active]; lisinopril 20 mg Oral tab 1 tab once daily [Active]; prednisone 5 mg Oral tab once daily [Active]; venlafaxine 75 mg Oral tab 2 times per day [Active]; Tylenol #4 Oral [Active]; Robaxin 500 mg Oral tab 2 tabs 4 times per day [Active]; - PMHx: 21:14 Asthma; Chronic pain; bells palsy; CVA; Depression; Diabetes - NIDDM; GERD; aj Hypertension; Irritable bowel syndrome; Kidney stones; lymphedema; Migraines; Sleep Apnea; - Immunization history:: Adult Immunizations up to date. - Social history:: Smoking status: Patient/guardian denies using tobacco. - Ebola Screening: : Patient negative for fever greater than or equal to 101.5 degrees Fahrenheit, and additional compatible Ebola Virus Disease symptoms Patient denies exposure to infectious person Patient denies travel to an Ebola-affected area in the 21 days before illness onset No symptoms or risks identified at this time. ROS: 22:29 Eyes: Negative for injury, pain, redness, and discharge, ENT: Negative for injury, jr8 pain, and discharge, Neck: Negative for injury, pain, and swelling, Cardiovascular: Negative for chest pain, palpitations, and edema, Respiratory: Negative for shortness of breath, cough, wheezing, and pleuritic chest pain, Back: Negative for injury and pain, MS/Extremity: Negative for injury and deformity, Neuro: Negative for headache, weakness, numbness, tingling, and seizure. 22:29 Skin: Negative for injury, rash, and discoloration. 22:29 Abdomen/GI: Positive for abdominal pain, Negative for nausea, vomiting, and diarrhea, abdominal distension, anorexia, dysphagia, hematemesis, black/tarry stool, rectal pain, rectal bleeding, bowel incontinence, flatulence. Exam: 22:29 Eyes: Pupils equal round and reactive to light, extra-ocular motions intact. Lids and jr8 lashes normal. Conjunctiva and sclera are non-icteric and not injected. Cornea within normal limits. Periorbital areas with no swelling, redness, or edema. ENT: Nares patent. No nasal discharge, no septal abnormalities noted. Tympanic membranes are normal and external auditory canals are clear. Oropharynx with no redness, swelling, or masses, exudates, or evidence of obstruction, uvula midline. Mucous membranes moist. Neck: Trachea midline, no thyromegaly or masses palpated, and no cervical lymphadenopathy. Supple, full range of motion without nuchal rigidity, or vertebral point tenderness. No Meningismus. Cardiovascular: Regular rate and rhythm with a normal S1 and S2. No gallops, murmurs, or rubs. Normal PMI, no JVD. No pulse deficits. Respiratory: Lungs have equal breath sounds bilaterally, clear to auscultation and percussion. No rales, rhonchi or wheezes noted. No increased work of breathing, no retractions or nasal flaring. Back: No spinal tenderness. No costovertebral tenderness. Full range of motion. Skin: Warm, dry with normal turgor. Normal color with no rashes, no lesions, and no evidence of cellulitis. MS/ Extremity: Pulses equal, no cyanosis. Neurovascular intact. Full, normal range of motion. Small tender nodule that is moveable noted to medial right thigh without erythema Neuro: Awake and alert, GCS 15, oriented to person, place, time, and situation. Cranial nerves II-XII grossly intact. Motor strength 5/5 in all extremities. Sensory grossly intact. Cerebellar exam normal. Normal gait. 22:29 Abdomen/GI: Inspection: obese scar(s), are noted in the , Bowel sounds: active, Palpation: abdomen is soft and non-tender, Indicators: McBurney's point is not tender, Mendes's sign is negative, Rovsing's sign is negative, Obturator sign is negative, Psoas sign is negative. Vital Signs: 21:14 BP 148 / 90; Pulse 93; Resp 20; Temp 98.1; Pulse Ox 96% on R/A; Weight 156.49 kg; aj Height 5 ft. 3 in. (160.02 cm); 22:30 BP 136 / 91; Pulse 71; Resp 20 S; Pulse Ox 98% on R/A; cc3 23:45 BP 121 / 71; Pulse 72; Resp 17 S; Pulse Ox 97% on R/A; cc3 03/31 00:15 BP 137 / 85; Pulse 65; Resp 17 S; Pulse Ox 96% on R/A; cc3 01:30 BP 133 / 87; Pulse 68; Resp 18 S; Pulse Ox 97% on R/A; cc3 03/30 21:14 Body Mass Index 61.11 (156.49 kg, 160.02 cm) aj MDM: 03/30 22:03 Patient medically screened. [facility] 03/31 01:14 Data reviewed: vital signs, nurses notes, lab test result(s), radiologic studies, CT jr8 scan. Data interpreted: Pulse oximetry: on room air is 98 %. Interpretation: normal. Counseling: I had a detailed discussion with the patient and/or guardian regarding: the historical points, exam findings, and any diagnostic results supporting the discharge/admit diagnosis, lab results, radiology results, the need for outpatient follow up, a family practitioner, to return to the emergency department if symptoms worsen or persist or if there are any questions or concerns that arise at home. 03/30 21:57 Order name: Urine Dipstick--Ancillary (enter results); Complete Time: 23:19 ms 03/30 21:57 Order name: Urine --Ancillary (enter results); Complete Time: 23:19 ms 03/30 22:12 Order name: Basic Metabolic Panel; Complete Time: 00:20 8 03/30 22:12 Order name: CBC with Diff; Complete Time: 23:03 8 03/30 22:12 Order name: Creatinine for Radiology; Complete Time: 23:22 8 03/30 22:12 Order name: Hepatic Function; Complete Time: 00:20 8 03/30 22:12 Order name: Lipase; Complete Time: 00:20 8 03/30 22:12 Order name: IV Saline Lock; Complete Time: :32 [facility] 03/30 22:12 Order name: Labs collected and sent; Complete Time: :32 8 03/30 23:23 Order name: CT Abd/Pelvis - W/Contrast jr8 Administered Medications: No medications were administered Disposition: 06:08 Co-signature as Attending Physician, Grabiel Harper MD I agree with the assessment and [facility] plan of care. Disposition: 03/31/18 01:16 Discharged to Home. Impression: Abdominal and pelvic pain. - Condition is Stable. - Discharge Instructions: Abdominal Pain, Adult. - Prescriptions for Keflex 500 mg Oral Capsule - take 1 capsule by ORAL route every 8 hours for 10 days; 30 capsule. - Medication Reconciliation Form, Thank You Letter, Antibiotic Education, Prescription Opioid Use form. - Follow up: Private Physician; When: 2 - 3 days; Reason: Recheck today's complaints, Continuance of care, Re-evaluation by your physician. - Problem is new. - Symptoms have improved. Signatures: Dispatcher [employer] Coretta Alfred RN RN aj Anderson, Corey, MD MD cha Roszak, Josh, PA PA jr8 Tami Babb cc3 Corrections: (The following items were deleted from the chart) 01:49 01:16 03/31/2018 01:16 Discharged to Home. Impression: Abdominal and pelvic pain. cc3 Condition is Stable. Forms are Medication Reconciliation Form, Thank You Letter, Antibiotic Education, Prescription Opioid Use. Follow up: Private Physician; When: 2 - 3 days; Reason: Recheck today's complaints, Continuance of care, Re-evaluation by your physician. Problem is new. Symptoms have improved. jr8
[2018-03-31 01:53] VITALS: TEMP 98.1
[2018-03-31 01:54] VITALS: BP 136/91; O2SAT 98
--- NOTE | 2018-03-31 08:12 | RAD REPORT ---
EXAM DESCRIPTION: CT - Abdomen Pelvis W Contrast - 03/31/2018 6:11 am CLINICAL HISTORY: Abdominal pain right flank pain COMPARISON: none. TECHNIQUE: Computed axial tomography of the abdomen pelvis was obtained. 100 cc Isovue-300 was admin istered intravenously. Oral contrast was not requested which limits evaluation of bowel. Preliminary report generated by virtual radiologic interview prior to dictation All CT scans are performed using dose optimization technique as appropriate and may include automated exposure control or mA/KV adjustment according to patient size. FINDINGS: The liver is mildly enlarged with fatty infiltration. Gallbladder is been removed. Spleen, pancreas, adrenal and kidneys appear unremarkable. There is no evidence of diverticulitis. The appendix is not clearly visualized. IMPRESSION: Mild hepatomegaly with fatty infiltration
== END 2018-03-31 01:49 | disposition home or self-care (01) ==
LOC: ER 21:05
DX: R10.2 Pelvic and perineal pain (principal); I10 Essential (primary) hypertension; E11.9 Type 2 diabetes mellitus without complications; J45.909 Unspecified asthma, uncomplicated; Z79.82 Long term (current) use of aspirin; Z88.8 Allergy status to other drugs, medicaments and biological substances; Z86.73 Personal history of transient ischemic attack (TIA), and cerebral infarction without residual deficits
CPT/HCPCS: 36415; 74177; 80048; 80076; 81003; 81025; 83690; 85025; 99284; Q9967

== ENCOUNTER 2018-05-07 06:20 | Emergency (ER) | payer OTHER ==
--- OUTSIDE RECORDS SUMMARY | 2018-05-07 06:22 | XMS REPORT | Clinical Summary ---
:1975 Author Organization [facility] Address [address] [place] [address] Care Team Providers Name Role Phone Pcp, No Primary Care Provider Unavailable Allergies Active Allergy Reactions Severity Noted Date Comments Warfarin Nausea And Vomiting 06/07/2016 Medications Medication Sig Dispensed Refills Start Date End Date Status bifidobacterium Take by mouth 0 Active infantis (ALIGN) 4 mg daily. Cap methocarbamol Take 750 mg by 0 Active (ROBAXIN) 750 MG mouth 4 (four) tablet times daily as needed . venlafaxine (EFFEXOR) Take 75 mg by 0 Active 75 MG tablet mouth 2 (two) times daily. pantoprazole Take 40 mg by 0 Active (PROTONIX) 40 MG mouth daily. tablet magnesium oxide Take 400 mg by 0 Active (MAG-OX) 400 mg mouth 2 (two) tablet times daily. metFORMIN Take 1 tablet 60 tablet 11 06/11/2016 (GLUCOPHAGE) 500 MG (500 mg total) 7 tablet by mouth 2 (two) times daily with breakfast and dinner. aspirin 81 MG EC Take 1 tablet 30 tablet 11 06/10/2016 tablet (81 mg total) 7 by mouth daily. acetaminophen Take 2 tablets 30 tablet 0 06/10/2016 (TYLENOL) 325 MG (650 mg total) 7 tablet by mouth every 6 (six) hours as needed for Pain for up to 360 days. hyoscyamine Take 0.125 mg 0 Discontinued (LEVSIN/SL) 0.125 mg by mouth 2 8 SL tablet (two) times daily. esomeprazole (NEXIUM) Take 40 mg by 0 Discontinued 40 MG capsule mouth daily. 8 atorvastatin Take 1 tablet 30 tablet 0 04/14/2017 (LIPITOR) 40 MG (40 mg total) 8 tablet by mouth nightly. amitriptyline Take 1 tablet 30 tablet 3 05/04/2017 (ELAVIL) 10 MG tablet (10 mg total) 8 by mouth nightly. Active Problems Problem Noted Date Left-sided weakness 12/08/2017 Status post administration of tPA (rtPA) in a different facility within 2017 the last 24 hours prior to admission to current facility Acute ischemic stroke 12/07/2017 Headache, acute 05/02/2017 CVA (cerebral vascular accident) 06/07/2016 Encounters Date Type Specialty Care Team Description 12/07/2017 - Hospital Encounter Intensive Care nAdrea Roberson Acute ischemic stroke (HCC); 12/09/2017 Dori Left-sided weakness; Status post administration of tPA (rtPA) in a different facility within the last 24 hours prior to admission to current facility; Functional neurological symptom disorder with weakness or paralysis after 05/06/2017 Family History Medical History Relation Name Comments Diabetes Mother Hypertension Mother Relation Name Status Comments Mother Social History Tobacco Use Types Packs/Day Years Used Date Former Smoker 1 1 Quit: 07/08/1993 Smokeless Tobacco: Never Used Alcohol Use Drinks/Week oz/Week Comments No Sex Assigned at Date Recorded Not on file Job Start Date Occupation Industry Not on file Not on file Not on file Travel History Travel Start Travel End No recent travel history available. Last Filed Vital Signs Vital Sign Reading [...] CDT Plan of Treatment Not on file Procedures Procedure Name Priority Date/Time Associated Comments Diagnosis REPORT OF PROCEDURE - 12/12/2017 2:21 ENDOSCOPY SCAN PM CDT RHYTHM STRIP - SCAN 12/12/2017 2:21 PM CDT POCT-GLUCOSE METER Routine 12/09/2017 8:19 Results for this AM CDT procedure are in the results section. POCT-GLUCOSE METER Routine 12/09/2017 5:54 Results for this AM CDT procedure are in the results section. CBC W/PLT COUNT & AUTO Routine 12/09/2017 4:35 Results for this DIFFERENTIAL AM CDT procedure are in the results section. BASIC METABOLIC PANEL Routine 12/09/2017 4:35 Results for this (7) AM CDT procedure are in the results section. CBC W/PLT COUNT & AUTO Routine 12/09/2017 4:35 Results for this DIFFERENTIAL AM CDT procedure are in the results section. POCT-GLUCOSE METER Routine 12/09/2017 12:05 Results for this AM CDT procedure are in the results section. MR MRA NECK WITHOUT IV Routine 12/08/2017 8:00 Results for this CONTRAST PM CDT procedure are in the results section. MR MRA HEAD WITHOUT Routine 12/08/2017 8:00 Results for this CONTRAST PM CDT procedure are in the results section. MR BRAIN WITHOUT IV Routine 12/08/2017 8:00 Results for this CONTRAST PM CDT procedure are in the results section. ECHOCARDIOGRAM REPORT - 12/08/2017 6:50 SCAN PM CDT POCT-GLUCOSE METER Routine 12/08/2017 3:20 Results for this PM CDT procedure are in the results section. 2D ECHO W/ DOPPLER Routine 12/08/2017 11:58 Results for this (CW/PW/COLOR) AM CDT procedure are in the results section. CAROTID DOPPLER Routine 12/08/2017 11:10 Results for this BILATERAL AM CDT procedure are in the results section. TROPONIN I Routine 12/08/2017 9:01 Results for this AM CDT procedure are in the results section. POCT-GLUCOSE METER Routine 12/08/2017 6:20 Results for this AM CDT procedure are in the results section. POCT-GLUCOSE METER Routine 12/08/2017 3:44 Results for this AM CDT procedure are in the results section. URINE CULTURE Routine 12/08/2017 3:39 Results for this AM CDT procedure are in the results section. RAPID DRUG SCREEN, Routine 12/08/2017 3:38 Results for this URINE AM CDT procedure are in the results section. URINALYSIS W/ Routine 12/08/2017 3:38 Results for this MICROSCOPIC AM CDT procedure are in the results section. CBC W/PLT COUNT & AUTO Routine 12/08/2017 3:37 Results for this DIFFERENTIAL AM CDT procedure are in the results section. TSH/FREE T4 IF Routine 12/08/2017 3:37 Results for this INDICATED AM CDT procedure are in the results section. HEMOGLOBIN A1C Routine 12/08/2017 3:37 Results for this AM CDT procedure are in the results section. BASIC METABOLIC PANEL Routine 12/08/2017 3:37 Results for this (7) AM CDT procedure are in the results section. CBC W/PLT COUNT & AUTO Routine 12/08/2017 3:37 Results for this DIFFERENTIAL AM CDT procedure are in the results section. LIPID PANEL Routine 12/08/2017 3:37 Results for this AM CDT procedure are in the results section. CBC W/PLT COUNT & AUTO STAT 12/07/2017 11:19 Results for this DIFFERENTIAL PM CDT procedure are in the results section. CBC W/PLT COUNT & AUTO STAT 12/07/2017 11:19 Results for this DIFFERENTIAL PM CDT procedure are in the results section. VITAMIN B12 AND FOLATE Routine 12/07/2017 11:19 Results for this PM CDT procedure are in the results section. PROTHROMBIN TIME/INR Routine 12/07/2017 11:19 Results for this PM CDT procedure are in the results section. HEPATIC FUNCTION PANEL Routine 12/07/2017 11:19 Results for this PM CDT procedure are in the results section. TROPONIN I Routine 12/07/2017 11:19 Results for this PM CDT procedure are in the results section. XR CHEST 1 VIEW Routine 12/07/2017 9:45 Results for this PORTABLE/BEDSIDE PM CDT procedure are in the results section. REPORT OF PROCEDURE - 05/10/2017 7:52 ENDOSCOPY SCAN AM FILM PRINTER RHYTHM STRIP - SCAN 05/10/2017 7:52 AM FILM PRINTER after 05/06/2017 Results EKG-SCANNED (12/12/2017 2:21 PM CDT)Only the most recent of2 resultswithin the time period is included. Narrative Performed At RHYTHM STRIP - SCAN (12/12/2017 2:21 PM CDT)Only the most recent of2 resultswithin the time period is included. Narrative Performed At POC-Glucose meter (12/09/2017 8:19 AM CDT)Only the most recent of6 resultswithin the time period is included. POC-Glucose Meter 99Comment: TESTED AT 70 - 110 mg/dL [facility] [address] [facility] [id number] Specimen Blood Performing Organization Address City/State/Zipcode Phone Number [address] [address] CENTER CBC with platelet count + automated diff (12/09/2017 4:35 AM CDT)Only the most recent of3 resultswithin the time period is included. WBC 6.7 3.5 - 10.5 K/L [facility] RBC 4.08 3.93 - 5.22 M/L [facility] Hemoglobin 11.4 11.2 - 15.7 GM/DL [facility] Hematocrit 37.6 34.1 - 44.9 % [facility] MCV 92.2 79.4 - 94.8 fL [facility] MCH 27.9 25.6 - 32.2 pg [facility] MCHC 30.3 (L) 32.2 - 35.5 GM/DL [facility] RDW 14.6 (H) 11.7 - 14.4 % [facility] Platelets 192 150 - 450 K/CU MM [facility] MPV 11.9 9.4 - 12.3 fL [facility] nRBC 0 0 - 0 /100 WBC [facility] % Neutros 69 % [facility] % Lymphs 25 % [facility] % Monos 5 % [facility] % Eos 2 % [facility] % Baso 0 % [facility] # Neutros 4.59 1.56 - 6.13 K/L [facility] # Lymphs 1.65 1.18 - 3.74 K/L [facility] # Monos 0.30 0.24 - 0.36 K/L [facility] # Eos 0.11 0.04 - 0.36 K/L [facility] # Baso 0.01 0.01 - 0.08 K/L [facility] Immature Granulocytes-Relative 0 0 - 1 % [facility] Specimen Blood Performing Organization Address City/State/Zipcode Phone Number [facility] [address] [place] [address] [phone] CENTER Basic Metabolic Panel (12/09/2017 4:35 AM CDT)Only the most recent of2 resultswithin the time period is included. Sodium 140 136 - 145 meq/L [facility] Potassium 3.9 3.5 - 5.1 meq/L [facility] Chloride 105 98 - 107 meq/L [facility] CO2 28 22 - 29 meq/L [facility] BUN 11 7 - 21 mg/dL [facility] Creatinine 0.62 0.57 - 1.25 mg/dL [facility] Glucose 107 (H) 70 - 105 mg/dL [facility] Calcium 8.8 8.4 - 10.2 mg/dL [facility] EGFR 106Comment: ESTIMATED GFR IS mL/min/1.[address] [facility] BCM NOT ACCURATE [facility] CLEARANCE IN PREDICTING GLOMERULAR FILTRATION RATE. ESTIMATED GFR IS NOT APPLICABLE FOR DIALYSIS PATIENTS. Specimen Blood Performing Organization Address City/State/Zipcode Phone Number [facility] [address] [place] [address] CENTER MR brain without IV contrast (12/08/2017 8:00 PM CDT) Narrative Performed At FINAL REPORT [employer] MRI Brain without contrast Clinical History: Stroke [...] acute infarct, hemorrhage, or hydrocephalus. Signed: Madeleine Mendoza MD Report Verified Date/Time:12/08/2017 20:02:46 Reading Location: [facility] Radiology Reading Room Procedure Note Interface, External [...] acute infarct, hemorrhage, or hydrocephalus. Signed: Madeleine Mendoza MD Report Verified Date/Time: 12/08/2017 20:02:46 Reading Location: [facility] Radiology Reading Room Performing Organization Address City/State/Zipcode Phone Number [facility] MRA neck without IV contrast (12/08/2017 8:00 PM CDT) Narrative Performed At FINAL REPORT [facility] MRA Head CLINICAL HISTORY: Stroke TECHNIQUE: MRA of the head utilizing 3-D fegy-vo-ntntos technique, with 3-D reconstructions. COMPARISON: None FINDINGS: There is no evidence of intracranial aneurysm, focal stenosis, or major branch vessel occlusion. There is a origin of the right posterior cerebral artery. IMPRESSION: No evidence for a major [place] proximal branch vessel occlusion. MRA Neck CLINICAL HISTORY: Stroke TECHNIQUE: MRA of the neck utilizing 2-D and 3-D aomp-zd-kjgvqw technique, with 3-D reconstructions. COMPARISON: None FINDINGS: The carotid arteries in the neck are patent including their bifurcations. There is antegrade flow in the vertebral arteries in the neck. IMPRESSION: No evidence of hemodynamically significant stenosis in the cervical carotid or vertebral arteries by NASCET criteria. Signed: Madeleine Mendoza MD Report Verified Date/Time:12/08/2017 20:13:50 Reading Location: [facility] [place] Reading Room Procedure Note Interface, External Ris In - 12/08/2017 8:15 PM CDT FINAL REPORT MRA Head CLINICAL HISTORY: Stroke TECHNIQUE: MRA of the head utilizing 3-D cqyt-wn-cyfpef technique, with 3-D reconstructions. COMPARISON: None FINDINGS: There is no evidence of intracranial aneurysm, focal stenosis, or major branch vessel occlusion. There is a origin of the right posterior cerebral artery. IMPRESSION: No evidence for a major [place] proximal branch vessel occlusion. MRA Neck CLINICAL HISTORY: Stroke TECHNIQUE: MRA of the neck utilizing 2-D and 3-D pdqv-vk-pknuod technique, with 3-D reconstructions. COMPARISON: None FINDINGS: The carotid arteries in the neck are patent including their bifurcations. There is antegrade flow in the vertebral arteries in the neck. IMPRESSION: No evidence of hemodynamically significant stenosis in the cervical carotid or vertebral arteries by NASCET criteria. Signed: Madeleine Mendoza MD Report Verified Date/Time: 12/08/2017 20:13:50 Reading Location: [facility] Radiology Reading Room Performing Organization Address City/State/Zipcode Phone Number [facility] MRA head without IV contrast (12/08/2017 8:00 PM CDT) Narrative Performed At FINAL REPORT [employer] [facility] MRA Head CLINICAL HISTORY: Stroke TECHNIQUE: MRA of the head utilizing 3-D jgos-sv-tuvgos technique, with 3-D reconstructions. COMPARISON: None FINDINGS: There is no evidence of intracranial aneurysm, focal stenosis, or major branch vessel occlusion. There is a origin of the right posterior cerebral artery. IMPRESSION: No evidence for a major [place] proximal branch vessel occlusion. MRA Neck CLINICAL HISTORY: Stroke TECHNIQUE: MRA of the neck utilizing 2-D and 3-D ytlr-xo-lvoxxh technique, with 3-D reconstructions. COMPARISON: None FINDINGS: The carotid arteries in the neck are patent including their bifurcations. There is antegrade flow in the vertebral arteries in the neck. IMPRESSION: No evidence of hemodynamically significant stenosis in the cervical carotid or vertebral arteries by NASCET criteria. Signed: Madeleine Mendoza MD Report Verified Date/Time:12/08/2017 20:13:50 Reading Location: [facility] [employer] Reading Room Procedure Note Interface, External Ris In - 12/08/2017 8:15 PM CDT FINAL REPORT MRA Head CLINICAL HISTORY: Stroke TECHNIQUE: MRA of the head utilizing 3-D crbq-rh-abyvaz technique, with 3-D reconstructions. COMPARISON: None FINDINGS: There is no evidence of intracranial aneurysm, focal stenosis, or major branch vessel occlusion. There is a origin of the right posterior cerebral artery. IMPRESSION: No evidence for a major [place] proximal branch vessel occlusion. MRA Neck CLINICAL HISTORY: Stroke TECHNIQUE: MRA of the neck utilizing 2-D and 3-D tagh-qm-bwxbmp technique, with 3-D reconstructions. COMPARISON: None FINDINGS: The carotid arteries in the neck are patent including their bifurcations. There is antegrade flow in the vertebral arteries in the neck. IMPRESSION: No evidence of hemodynamically significant stenosis in the cervical carotid or vertebral arteries by NASCET criteria. Signed: Madeleine Mendoza MD Report Verified Date/Time: 12/08/2017 20:13:50 Reading Location: [facility] Radiology Reading Room Performing Organization Address City/State/Zipcode Phone Number [employer] [facility]IS ECHOCARDIOGRAM REPORT - SCAN (12/08/2017 6:50 PM CDT) Narrative Performed At 2D Echo W/Doppler(CW/PW/Color) with saline (12/08/2017 11:58 AM CDT) Ejection Fraction [facility] Narrative Performed At Transthoracic Echocardiography Report (TTE) [facility] Demographics Patient NameAGUILAR, Date of Study12/08/2017 GIOVANNY Gender Female Visit [id number] Race Unknown [id number] Number Date of 1975 Referring PhysicianAndrea Mendez Age 42 year(s) SonographerOsclovely Wilson, [facility] [employer] Grip Jeremi Martel MD Physician Procedure Type of Study [...] LV endocardium is adequately visualized with IV ul trasound enhancing agent. The left ventricle is ch paco size (by PSLAX dimension) is normal (female - LVIDd 3.8-5.2cm) . Mild concentric LV hy pertrophy. All of the LV segments contract no rmally . Estimated LVEF by qualitative assessment is normal (55-60%) . Left AtriumLA size is normal . Right VentricleRV chamber size is mildly enlarged . Gl obal RV systolic function is normal . Right Atrium The RA is partially visualized. RA cavity size is normal . Atrial SeptumIV saline contrast injection was negative for a PFO (p atent foramen ovale) at rest . Aortic Valve AoV is partially visualized. No rmal AoV structure. Mitral Valve Trace mitral regurgitation. Tricuspid ValveA trace of tricuspid regurgitation. Es timated peak systolic PA pressure is 35-40 mmHg . Pulmonic Valve PV is not well visualized. AortaAortic root size (SInus of Valsalva diameter) is no rmal . PericardiumNo evidence of pericardial effusion. IVC/SVC/PA/PV/PleuralThe [...] Study 12/08/2017 GIOVANNY Gender Female Visit Number [id number] Race Unknown Room Number 7401 Number Date of 1975 Referring Physician Andrea Mendez Age 42 year(s) Nursing Home Assistant Administrator Reji Wilson [facility] [employer] G[employer] Jeremi Rodriguez Interpreting Frederic Martel MD Physician [...] Diameter: 2.1 cm LVOT Area: 3.46 cm^2 Performing Organization Address City/State/Zipcode Phone Number [facility] Carotid doppler bilateral (12/08/2017 11:10 AM CDT) Ejection Fraction [facility] [employer] [facility] Impressions Performed At Right Impression [facility] [employer] [facility] [place] [facility] 1. The internal, common and external carotid [...] in cm Carotid Right Measurements + +----+----+-----+ +---- + + !Location !PSV !EDV !Angle!%Stenosis 2D!%Stenosis Doppler!Tortuosity ! + +----+----+-----+ +---- + + !Prox CCA !112 !27.5!60 !! ! ! + +----+----+-----+ +---- + + !Dist CCA !81.7!33!60 !! ! ! + +----+----+-----+ +---- + + !Prox ICA !113 !33.8!60 !! ! ! + +----+----+-----+ +---- + + !Dist ICA !83.3!38.5!60 !! ! ! + +----+----+-----+ +---- + + !Prox ECA !99.8!14.1!60 !! ! ! + +----+----+-----+ +---- + + !Vertebral!48.7!15.7!60 !! ! ! + +----+----+-----+ +---- + + !Prox Subclavian!102 !26.4!60 !! ! ! + +----+----+-----+ +---- + + - Additional Measurements:ICAPSV/CCAPSV 1.38.ICAEDV/CCAEDV 1.4. Carotid Left Measurements + +----+----+-----+ +---- + + !Location !PSV !EDV !Angle!%Stenosis 2D!%Stenosis Doppler!Tortuosity ! + +----+----+-----+ +---- + + !Prox CCA !132 !40.1!60 !! ! ! + +----+----+-----+ +---- + + !Dist CCA !88.8!32.2!60 !! ! ! + +----+----+-----+ +---- + + !Prox ICA !89.6!28.3!60 !! ! ! + +----+----+-----+ +---- + + !Dist ICA !77!27.5!60 !! ! ! + +----+----+-----+ +---- + + !Prox ECA !119 !15.3!50 !! ! ! + +----+----+-----+ +---- + + !Vertebral!85.6!32.2!60 !! ! ! + +----+----+-----+ +---- + + !Prox Subclavian!158 !30.6!60 !! ! ! + +----+----+-----+ +---- + + - Additional Measurements:ICAPSV/CCAPSV 1.01.ICAEDV/CCAEDV 0.71. Narrative Performed At LAB - Carotid Duplex Study [facility] Demographics Patient Name Ty HARRISON of Study12/08/2017 [id number] Visit Number [id number] Gender Female Accession Number [id number] Date of Birth1975 [facility] Room [id number] Physician Michael Jeff RVT Physician, SCOTT Procedure Type of Study: Cerebral: Carotid, CAROTID DOPPLER, BILATERAL. Indications for Study:Stroke workup . Patient Status:STAT. Study Location:Portable. Technical Quality:Adequate visualization. Risk Factors History of Disease + + + + !Diagnosis !Date!Comments ! + + + + !History/Risk!04/07/2017!Former smoker, CVA with left sided weakness & ! !Factors:!!rig ht facial droop, DM, Morbid obesity! + + + + Procedure Note Interface, External Ris In - 12/08/2017 2:43 PM CDT [facility] LAB - Carotid Duplex Study Demographics Patient Name GIOVANNY HARRISON Date of Study 12/08/2017 Age 42 Visit Number [id number] Gender Female Accession Number [id number] Date of 1975 Referring [facility] Room Number 7401 Physician Nursing Home Assistant Administrator Fernando Goldberg Interpreting Rajeev Jeff Ina Physician , SCOTT Procedure Type of Study: Cerebral: Carotid, [...] + + - Additional Measurements:ICAPSV/CCAPSV 1.01.ICAEDV/CCAEDV 0.71. Performing Organization Address [facility] Phone Number [facility] Troponin I (12/08/2017 9:01 AM CDT)Only the most recent of2 resultswithin the time period is included. Troponin I <0.01 0.00 - 0.03 ng/mL [facility] Specimen Blood Narrative Performed At [facility] Troponin I (TnI) levels must be interpreted [...] acidosis, acute neurological disease, and persistent tachyarrhythmia. Performing Organization Address [facility]/Zipcode Phone Number [place] [phone] [place] [address] [phone] [place] Urine culture (12/08/2017 3:39 AM CDT) Result No growth [facility] Specimen Urine - Urine, Straight Catheter Performing Organization Address [facility]/Zipcode Phone Number [place] [phone] [place] [address] [phone] [place] Rapid drug screen, urine (12/08/2017 3:38 AM CDT) Barbiturate Screen Negative Negative [facility] Benzodiazepine Screen Negative Negative [facility] Cocaine (Metab.) Screen Negative Negative [facility] Methadone Screen Negative Negative [facility] Opiate Screen Negative Negative [facility] Cannabinoid Screen Negative Negative [facility] Amph/Methamph Screen Negative Negative [facility] Phencyclidine Screen Negative Negative [facility] Oxycodone Screen Negative Negative [facility] Specimen Urine - Urine, Sterile Collection Narrative Performed At [facility]. Cocaine 300 ng/mL Eeojxhlpwim18 ng/mL Eogiqylahvuogk364 ng/mL Barbiturate 200 ng/mL Rhlfmmknyamny09 ng/mL Rhnumc554 ng/mL Methadone 300 ng/mL Amphetamine/ 1000 ng/mL Methamphetamine Oxycodone 300 ng/mL This assay provides an unconfirmed qualitative test result for the clinical management of patients in emergency situations. Chain of custody not maintained. Some oczd-dcz-efgqszt medications, as well as adulterants, may cause inaccurate results. Clinical correlation should be applied. A more comprehensive drug screen or confirmation of a detected drug may be performed upon request. Performing Organization Address City/State/Zipcode Phone Number [facility] [address] [place] [address] CENTER Urinalysis w/ Microscopic (12/08/2017 3:38 AM CDT) Color, UA Yellow [facility] Clarity, UA Clear [facility] Specific [place], UA 1.039 (H) 1.001 - 1.035 [facility] pH, UA 5.5 5.0 - 8.0 [facility] Protein, UA 10 mg/dL (A) Negative [facility] Glucose, UA Negative Negative [facility] Ketones, UA Negative Negative [facility] Bilirubin, UA Negative Negative [facility] Blood, UA Small (A) Negative [facility] Nitrite, UA Negative Negative [facility] Leukocytes, UA Negative Negative [facility] Urobilinogen, UA 0.2 0.2 - 1.0 mg/dL [facility] RBC, UA 1 /HPF [facility] WBC, UA <1 /HPF [facility] Mucus Occasional [facility] Squam Epithel, UA <1 /HPF [facility] Crystals, Urine Rare [facility] Specimen Source Urine, Sterile Collection [facility] Specimen Urine - Urine, Sterile Collection Performing Organization Address [facility] Phone Number [address] [address] [phone] [place] TSH/Free T4 If Indicated (12/08/2017 3:37 AM CDT) TSH 0.66 0.35 - 4.94 uIU/mL [facility] Specimen Blood - Arm, Left Performing Organization Address [facility] Phone Number [address] [address] [place] Hemoglobin A1c - Fasting (12/08/2017 3:37 AM CDT) Hemoglobin A1C 6.6 (H) 4.3 - 6.1 % [facility] Specimen Blood - Arm, Left Narrative Performed At Fasting [facility] Performing Organization Address [facility] Phone Number [address] [address] [phone] [place] Fasting lipid panel (12/08/2017 3:37 AM CDT) Triglycerides 83Comment: Specimen slightly mg/dL [facility] 140Comment: Specimen slightly mg/dL [facility] hemolyzed [facility] HDL 38 mg/dL [facility] LDL Calculated 85 mg/dL [facility] Specimen Blood - Arm, Left Narrative Performed At [facility] Triglyceride Reference Range: Low Risk <150 [id number] High Risk 200-499 Very High Risk>=500 Cholesterol Reference Range: Low Risk <200 [id number] High Risk>240 HDL Cholesterol Reference Range: Low Risk >=60 High Risk <40 LDL Cholesterol Reference Range: Optimal<100 Near [id number] Very High >=190 Fasting Performing Organization Address [facility] Phone Number [address] [address] CENTER Vitamin B12 and Folate (12/07/2017 11:19 PM CDT) Vitamin B12 688 213 - 816 pg/mL [facility] Folate 12.1 >=7.0 ng/mL [facility] Specimen Blood - Arm, Left Performing Organization Address [facility] Phone Number [address] [address] [phone] CENTER Prothrombin time/INR (12/07/2017 11:19 PM CDT) Protime 15.8 (H) 11.7 - 14.7 seconds [facility] INR 1.3 <=5.9 [facility] Specimen Blood - Arm, Left Narrative Performed At [facility] RECOMMENDED COUMADIN/WARFARIN INR THERAPY RANGES STANDARD DOSE: 2.0 - 3.0 Includes: PROPHYLAXIS for venous thrombosis, systemic embolization; TREATMENT for venous thrombosis and/or pulmonary embolus. HIGH RISK: Target INR is 2.5-3.5 for patients with mechanical heart valves. Performing Organization Address [facility] Phone Number [address] [place] [address] [place] Hepatic function panel (12/07/2017 11:19 PM CDT) Protein, Total 6.8 6.0 - 8.3 gm/dL [facility] Albumin 3.7 3.5 - 5.0 g/dL [facility] Total Bilirubin 0.4 0.2 - 1.2 mg/dL [facility] Bilirubin, Direct 0.2 0.1 - 0.5 mg/dL [facility] Alkaline Phosphatase 75 40 - 150 U/L [facility] AST 30 5 - 34 U/L [facility] ALT 17 6 - 55 U/L [facility] Specimen Blood - Arm, Left Performing Organization Address City/State/Zipcode Phone Number [address] [address] [place] XR chest 1 view portable / bedside (12/07/2017 9:45 PM CDT) Narrative Performed At FINAL REPORT RIS Clinical History: Stroke workup Comparison Study: None Findings:The cardiac silhouette is enlarged. The lungs are within normal limits.The pleural spaces are clear.No significant bony or soft tissue abnormalities are seen. Impression: Cardiomegaly. Signed: Wellington Goodwin MD Report Verified Date/Time:12/07/2017 21:51:29 Reading Location: [facility] C013 Consult Reading Room Procedure Note Interface, External Ris In - 12/07/2017 9:53 PM CDT FINAL REPORT Clinical History: Stroke workup Comparison Study: None Findings: The cardiac silhouette is enlarged. The lungs are within normal limits. The pleural spaces are clear. No significant bony or soft tissue abnormalities are seen. Impression: Cardiomegaly. Signed: Wellington Goodwin MD Report Verified Date/Time: 12/07/2017 21:51:29 Reading Location: [place] [id number] Consult Reading Room Performing Organization Address City/State/Zipcode Phone Number GE RIS after 05/06/2017 Insurance Payer Benefit Plan / Group Subscriber ID Type Phone Address CARE IMPROVEMENT MEDICARE CARE IMPROVEMENT PLUS xxxxxxxxx MGD CARE MEDICAID MEDICAID [facility] xxxxxxxxx Medicaid ([place]) [place] [address] Advance Directives For more information, please contact:[address] [phone] Code Status Date Activated Date Inactivated Comments Full Code 05/02/2017 9:56 PM 05/04/2017 2:47 PM This code status was determined by: Patient Full Code 04/06/2017 11:35 PM 04/15/2017 8:31 PM This code status was determined by: Patient
--- OUTSIDE RECORDS SUMMARY | 2018-05-07 06:23 | XMS REPORT ---
:1975 [facility] Address [address] [place] [address] Care Team Providers Name Role Phone JONATAN, [...] Value Reference Range Comments CULTURE (BEAKER) (test wbvb=0887) No growth POCT-GLUCOSE [id number] 08:21:00 Test Item Value Reference Range Comments POC-GLUCOSE METER (BEAKER) 99 mg/dL 70-110 TESTED AT [address] (test zzvg=4252) [place] [id number] POCT-GLUCOSE [id number] 06:14:00 Test Item Value Reference Range Comments POC-GLUCOSE METER (BEAKER) 105 mg/dL 70-110 TESTED AT [address] (test xqxy=4534) [place] [id number] BASIC METABOLIC [id number] 05:56:00 Test Item Value Reference Range Comments SODIUM (BEAKER) (test 140 meq/L 136-145 rqjf=692) POTASSIUM (BEAKER) (test 3.9 meq/L 3.5-5.1 qgcf=302) CHLORIDE (BEAKER) (test 105 meq/L 98-107 geek=206) CO2 (BEAKER) (test 28 meq/L 22-29 prhw=716) BLOOD UREA NITROGEN 11 mg/dL 7-21 (BEAKER) (test qofl=855) CREATININE (BEAKER) (test 0.62 mg/dL 0.57-1.25 dtzc=868) GLUCOSE RANDOM (BEAKER) 107 mg/dL 70-105 (test uboz=736) CALCIUM (BEAKER) (test 8.8 mg/dL 8.4-10.2 ddyq=973) EGFR (BEAKER) (test 106 mL/min/1.73 sq m ESTIMATED GFR IS NOT vhcm=5259) ACCURATE CREATININE CLEARANCE IN PREDICTING GLOMERULAR FILTRATION RATE. ESTIMATED GFR IS NOT APPLICABLE FOR DIALYSIS PATIENTS. CBC W/PLT COUNT & AUTO [id number] 05:15:00 Test Item Value Reference Range Comments WHITE BLOOD CELL COUNT (BEAKER) (test eifg=532) 6.7 K/ L 3.5-10.5 RED BLOOD CELL COUNT (BEAKER) (test betb=654) 4.08 M/ L 3.93-5.22 HEMOGLOBIN (BEAKER) (test tkry=922) 11.4 GM/DL 11.2-15.7 HEMATOCRIT (BEAKER) (test zyfl=807) 37.6 % 34.1-44.9 MEAN CORPUSCULAR VOLUME (BEAKER) (test tnst=689) 92.2 fL 79.4-94.8 MEAN CORPUSCULAR HEMOGLOBIN (BEAKER) (test 27.9 pg 25.6-32.2 oncg=035) MEAN CORPUSCULAR HEMOGLOBIN CONC (BEAKER) (test 30.3 GM/DL 32.2-35.5 fiyx=792) RED CELL DISTRIBUTION WIDTH (BEAKER) (test 14.6 % 11.7-14.4 dfux=906) PLATELET COUNT (BEAKER) (test zpvk=225) 192 K/CU MM 150-450 MEAN PLATELET VOLUME (BEAKER) (test hado=239) 11.9 fL 9.4-12.3 NUCLEATED RED BLOOD CELLS (BEAKER) (test 0 /100 WBC 0-0 vgzs=109) NEUTROPHILS RELATIVE PERCENT (BEAKER) (test 69 % kytm=356) LYMPHOCYTES RELATIVE PERCENT (BEAKER) (test 25 % ykyl=238) MONOCYTES RELATIVE PERCENT (BEAKER) (test 5 % jomu=897) EOSINOPHILS RELATIVE PERCENT (BEAKER) (test 2 % zfmm=298) BASOPHILS RELATIVE PERCENT (BEAKER) (test 0 % yeli=429) NEUTROPHILS ABSOLUTE COUNT (BEAKER) (test 4.59 K/ L 1.56-6.13 wdbx=473) LYMPHOCYTES ABSOLUTE COUNT (BEAKER) (test 1.65 K/ L 1.18-3.74 oaxy=910) MONOCYTES ABSOLUTE COUNT (BEAKER) (test 0.30 K/ L 0.24-0.36 ctcw=230) EOSINOPHILS ABSOLUTE COUNT (BEAKER) (test 0.11 K/ L 0.04-0.36 qtvc=980) BASOPHILS ABSOLUTE COUNT (BEAKER) (test 0.01 K/ L 0.01-0.08 uyzj=147) IMMATURE GRANULOCYTES-RELATIVE PERCENT (BEAKER) 0 % 0-1 (test svxr=7431) POCT-GLUCOSE [id number] 00:23:00 Test Item Value Reference Range Comments POC-GLUCOSE METER (BEAKER) 111 mg/dL 70-110 TESTED AT [facility] [address] [place] [address] (test lwtr=7880) [facility] [address] MR, MRA, BRAIN, WITHOUT [id number] 20:13:00Reason for exam:-> Ischemic Stroke EvaluationFINAL REPORT MRA Head CLINICAL HISTORY: Stroke TECHNIQUE: MRA of the head utilizing 3-D ayfx-ae-rqwxoj technique, with 3-D reconstructions. COMPARISON: None FINDINGS: There is noevidence of intracranial aneurysm, focal stenosis, or major branch vessel occlusion. There is a origin of the right posterior cerebral artery. IMPRESSION: No evidence for a major [facility]ximal branch vessel occlusion. MRA Neck CLINICAL HISTORY: Stroke TECHNIQUE: MRA of the neck utilizing 2-D and 3-D xkqy-ls-jajcst technique, with 3-D reconstructions. COMPARISON: None FINDINGS: Thecarotid arteries in the neck are patent including their bifurcations. There is antegrade flow in the vertebral arteries in the neck. IMPRESSION: No evidence of hemodynamically significant stenosis in the cervical carotid or vertebral arteries by NASCET criteria. Signed: Madeleine Mendoza MDReport Verified Date/Time: 12/08/2017 20:13:50 Reading Location: [facility] Radiology Reading Room MR, MRA, NECK, WITHOUT IV [id number] 20:13: 00Reason for exam:->Ischemic Stroke EvaluationFINAL REPORT MRA Head CLINICAL HISTORY: Stroke TECHNIQUE: MRA of the head utilizing 3-D pmxb-pi-ujbutz technique, with 3-D reconstructions. COMPARISON: None FINDINGS: There is noevidence of intracranial aneurysm, focal stenosis, or major branch vessel occlusion. There is a origin of the right posterior cerebral artery. IMPRESSION: No evidence for a major [facility]ximal branch vessel occlusion. MRA Neck CLINICAL HISTORY: Stroke TECHNIQUE: MRA of the neck utilizing 2-D and 3-D ybsl-zm-rxfpag technique, with 3-D reconstructions. COMPARISON: None FINDINGS: Thecarotid arteries in the neck are patent including their bifurcations. There is antegrade flow in the vertebral arteries in the neck. IMPRESSION: No evidence of hemodynamically significant stenosis in the cervical carotid or vertebral arteries by NASCET criteria. Signed: Madeleine Mendoza Verified Date/Time: 12/08/2017 20:13: 50 Reading Location: [facility] Reading Room MR, BRAIN, WITHOUT [id number] 20:02:00Reason for exam:->StrokeWhat is the patient's sedation [...] Verified Date/ Time: 12/08/2017 20:02:46 Reading Location: [facility] Radiology Reading Room 08:02 PMPOCT-GLUCOSE [id number] 15:23:00 Test Item Value Reference Range Comments POC-GLUCOSE METER (MILAGROS) 106 mg/dL 70-110 TESTED AT [address] (test kroj=9564) [facility] [address] HEMOGLOBIN [id number] 11:57:00 Test Item Value Reference Range Comments HEMOGLOBIN A1C (BEAKER) (test lgap=518) 6.6 % 4.3-6.1 FastingTROPONIN [id number] 09:50:00 Test Item Value Reference Range Comments TROPONIN I (BEAKER) (test pnbm=313) < ng/mL 0.00-0.03 Troponin I (TnI) levels [...] acidosis, acute neurological disease, and persistent tachyarrhythmia.POCT-GLUCOSE [id number] 06:23:00 Test Item Value Reference Range Comments POC-GLUCOSE METER (BEAKER) 110 mg/dL 70-110 TESTED AT [address] (test pbta=3310) [place] [id number] POCT-GLUCOSE [id number] 06:15:00 Test Item Value Reference Range Comments POC-GLUCOSE METER (BEAKER) 149 mg/dL 70-110 TESTED AT [address] (test juiw=5136) [facility] [address] VITAMIN B12 AND [id number] 05:50:00 Test Item Value Reference Range Comments VITAMIN B12 (BEAKER) (test niel=228) 688 pg/mL 213-816 FOLATE (BEAKER) (test lvcp=626) 12.1 ng/mL >=7.0 TSH/FREE T4 IF [id number] 05:29:00 Test Item Value Reference Range Comments THYROID STIMULATING HORMONE (BEAKER) (test 0.66 uIU/mL 0.35-4.94 tltu=855) BASIC METABOLIC [id number] 05:11:00 Test Item Value Reference Range Comments SODIUM (BEAKER) (test 140 meq/L 136-145 grci=460) POTASSIUM (BEAKER) (test 4.3 meq/L 3.5-5.1 Specimen slightly xqkz=439) hemolyzed CHLORIDE (BEAKER) (test 105 meq/L 98-107 gxzh=836) CO2 (BEAKER) (test 27 meq/L 22-29 apga=069) BLOOD UREA NITROGEN 8 mg/dL 7-21 (BEAKER) (test niak=478) CREATININE (BEAKER) (test 0.67 mg/dL 0.57-1.25 Specimen slightly umpy=098) hemolyzed GLUCOSE RANDOM (BEAKER) 136 mg/dL 70-105 (test xqqf=055) CALCIUM (BEAKER) (test 8.7 mg/dL 8.4-10.2 auba=325) EGFR (BEAKER) (test 97 mL/min/1.73 sq m ESTIMATED GFR IS NOT cjkl=9465) ACCURATE CREATININE CLEARANCE IN PREDICTING GLOMERULAR FILTRATION RATE. ESTIMATED GFR IS NOT APPLICABLE FOR DIALYSIS PATIENTS. FastingLIPID [id number] 05:11:00 Test Item Value Reference Range Comments TRIGLYCERIDES (BEAKER) (test 83 mg/dL Specimen slightly hemolyzed vrxx=867) CHOLESTEROL (BEAKER) (test 140 mg/dL Specimen slightly hemolyzed sfvq=850) HDL CHOLESTEROL (BEAKER) (test 38 mg/dL tiye=409) LDL CHOLESTEROL CALCULATED 85 mg/dL (BEAKER) (test wsev=273) Triglyceride Reference Range: Low Risk <150 Borderline 150- 199 High Risk 200-499 Very High Risk >=500Cholesterol Reference Range: Low Risk <200 Borderline 200-239 High Risk > 240HDL Cholesterol Reference Range: Low Risk >=60 High Risk <40LDL Cholesterol Reference Range: Optimal <100 Near Optimal 100-129 Borderline 130-159 High 160-189 Very High >=190 FastingRAPID DRUG SCREEN, [id number] 04:34:00 Test Item Value Reference Range Comments BARBITURATE URINE (BEAKER) (test tvxf=862) Negative Negative BENZODIAZEPINE SCREEN URINE (BEAKER) (test Negative Negative ntuc=271) COCAINE (METAB.) SCREEN (BEAKER) (test zpaq=4912) Negative Negative METHADONE SCREEN (BEAKER) (test oejo=9876) Negative Negative OPIATE SCREEN URINE (BEAKER) (test scus=853) Negative Negative CANNABINOID SCREEN URINE (BEAKER) (test rwzj=067) Negative Negative AMPH/METHAMPH SCREEN (BEAKER) (test uoez=7027) Negative Negative PHENCYCLIDINE SCREEN URINE (BEAKER) (test zcig=699) Negative Negative OXYCODONE SCREEN URINE (BEAKER) (test cpgz=7287) Negative Negative DRUG CUTOFF CONC.Cocaine 300 ng/mL Cannabinoid 50 ng/mL Benzodiazepine 200 ng/mLBarbiturate 200 ng/ mLPhencyclidine 25 ng/mLOpiate 300 ng/mLMethadone 300 ng/mLAmphetamine/ 1000 ng/mL MethamphetamineOxycodone 300 ng/mLThis assay provides an unconfirmed qualitative test result for the clinical management of patients in emergency situations. Chain of custody not maintained. Some ifdr-qgv-mtwgwmw medications, as well as adulterants, may cause inaccurate results. Clinical correlation should be applied. A more comprehensive drug screen or confirmation of a detected drug may be performed upon request.URINALYSIS W/ [id number] 04:09:00 Test Item Value Reference Range Comments COLOR (BEAKER) (test uckd=410) Yellow CLARITY (BEAKER) (test jjae=488) Clear SPECIFIC GRAVITY UA (BEAKER) (test 1.039 1.001-1.035 qqbk=082) PH UA (BEAKER) (test vyda=886) 5.5 5.0-8.0 PROTEIN UA (BEAKER) (test 10 mg/dL Negative wyjv=149) GLUCOSE UA (BEAKER) (test Negative Negative nwbi=136) KETONES UA (BEAKER) (test Negative Negative akps=323) BILIRUBIN UA (BEAKER) (test Negative Negative ffuo=102) BLOOD UA (BEAKER) (test jwyk=349) Small Negative NITRITE UA (BEAKER) (test Negative Negative cmft=347) LEUKOCYTE ESTERASE UA (BEAKER) Negative Negative (test xozp=333) UROBILINOGEN UA (BEAKER) (test 0.2 mg/dL 0.2-1.0 ziqw=097) RBC UA (BEAKER) (test exik=494) 1 /HPF WBC UA (BEAKER) (test ypnr=378) < /HPF MUCUS (BEAKER) (test bgkn=0127) Occasional SQUAMOUS EPITHELIAL (BEAKER) (test < /HPF meii=934) CRYSTALS, URINE (BEAKER) (test Rare ykjo=0288) SOURCE(BEAKER) (test nglh=6089) Urine, Sterile Collection CBC W/PLT COUNT & AUTO [id number] 03:54:00 Test Item Value Reference Range Comments WHITE BLOOD CELL COUNT (BEAKER) (test vvou=819) 7.2 K/ L 3.5-10.5 RED BLOOD CELL COUNT (BEAKER) (test jadt=529) 4.10 M/ L 3.93-5.22 HEMOGLOBIN (BEAKER) (test neex=578) 11.6 GM/DL 11.2-15.7 HEMATOCRIT (BEAKER) (test uaff=544) 37.5 % 34.1-44.9 MEAN CORPUSCULAR VOLUME (BEAKER) (test xomf=033) 91.5 fL 79.4-94.8 MEAN CORPUSCULAR HEMOGLOBIN (BEAKER) (test 28.3 pg 25.6-32.2 usaj=238) MEAN CORPUSCULAR HEMOGLOBIN CONC (BEAKER) (test 30.9 GM/DL 32.2-35.5 bwhq=857) RED CELL DISTRIBUTION WIDTH (BEAKER) (test 14.6 % 11.7-14.4 udjq=005) PLATELET COUNT (BEAKER) (test cqwv=711) 194 K/CU MM 150-450 MEAN PLATELET VOLUME (BEAKER) (test sfcd=033) 11.7 fL 9.4-12.3 NUCLEATED RED BLOOD CELLS (BEAKER) (test 0 /100 WBC 0-0 xfwn=118) NEUTROPHILS RELATIVE PERCENT (BEAKER) (test 73 % iwqf=365) LYMPHOCYTES RELATIVE PERCENT (BEAKER) (test 21 % rszs=281) MONOCYTES RELATIVE PERCENT (BEAKER) (test 4 % isej=206) EOSINOPHILS RELATIVE PERCENT (BEAKER) (test 2 % sgvy=238) BASOPHILS RELATIVE PERCENT (BEAKER) (test 0 % cvdv=496) NEUTROPHILS ABSOLUTE COUNT (BEAKER) (test 5.22 K/ L 1.56-6.13 buyh=557) LYMPHOCYTES ABSOLUTE COUNT (BEAKER) (test 1.47 K/ L 1.18-3.74 tjru=488) MONOCYTES ABSOLUTE COUNT (BEAKER) (test 0.31 K/ L 0.24-0.36 hvbp=345) EOSINOPHILS ABSOLUTE COUNT (BEAKER) (test 0.13 K/ L 0.04-0.36 rncj=209) BASOPHILS ABSOLUTE COUNT (BEAKER) (test 0.01 K/ L 0.01-0.08 qvam=296) IMMATURE GRANULOCYTES-RELATIVE PERCENT (BEAKER) 0 % 0-1 (test faam=7543) TROPONIN [id number] 23:56:00 Test Item Value Reference Range Comments TROPONIN I (BEAKER) (test tfte=288) < ng/mL 0.00-0.03 Troponin I (TnI) levels [...] acute neurological disease, and persistent tachyarrhythmia.HEPATIC FUNCTION [id number] 23:49: 00 Test Item Value Reference Range Comments TOTAL PROTEIN (BEAKER) (test pzwp=893) 6.8 gm/dL 6.0-8.3 ALBUMIN (BEAKER) (test blvg=5150) 3.7 g/dL 3.5-5.0 BILIRUBIN TOTAL (BEAKER) (test bjba=416) 0.4 mg/dL 0.2-1.2 BILIRUBIN DIRECT (BEAKER) (test wyae=041) 0.2 mg/dL 0.1-0.5 ALKALINE PHOSPHATASE (BEAKER) (test akld=549) 75 U/L 40-150 AST (SGOT) (BEAKER) (test dtbe=787) 30 U/L 5-34 ALT (SGPT) (BEAKER) (test fcyg=557) 17 U/L 6-55 PROTHROMBIN [id number] 23:40:00 Test Item Value Reference Range Comments PROTIME (BEAKER) (test cjbo=033) 15.8 seconds 11.7-14.7 INR (BEAKER) (test eeae=505) 1.3 <=5.9 RECOMMENDED COUMADIN/WARFARIN INR THERAPY RANGESSTANDARD DOSE: 2.0 - 3.0 Includes: PROPHYLAXIS forvenous thrombosis, systemic embolization; TREATMENT for venous thrombosis and/or pulmonary embolus.HIGH RISK: Target INR is 2.5-3.5 for patients with mechanical heart valves.CBC W/PLT COUNT & AUTO [id number] 23:27:00 Test Item Value Reference Range Comments WHITE BLOOD CELL COUNT (BEAKER) (test bphw=161) 8.2 K/ L 3.5-10.5 RED BLOOD CELL COUNT (BEAKER) (test cnsx=850) 4.18 M/ L 3.93-5.22 HEMOGLOBIN (BEAKER) (test czgs=768) 11.9 GM/DL 11.2-15.7 HEMATOCRIT (BEAKER) (test brvd=251) 38.2 % 34.1-44.9 MEAN CORPUSCULAR VOLUME (BEAKER) (test ewud=224) 91.4 fL 79.4-94.8 MEAN CORPUSCULAR HEMOGLOBIN (BEAKER) (test 28.5 pg 25.6-32.2 zxrw=322) MEAN CORPUSCULAR HEMOGLOBIN CONC (BEAKER) (test 31.2 GM/DL 32.2-35.5 gbje=012) RED CELL DISTRIBUTION WIDTH (BEAKER) (test 14.6 % 11.7-14.4 lcrg=560) PLATELET COUNT (BEAKER) (test wqdp=078) 199 K/CU MM 150-450 MEAN PLATELET VOLUME (BEAKER) (test mtnd=698) 11.4 fL 9.4-12.3 NUCLEATED RED BLOOD CELLS (BEAKER) (test 0 /100 WBC 0-0 lqvj=572) NEUTROPHILS RELATIVE PERCENT (BEAKER) (test 74 % camo=381) LYMPHOCYTES RELATIVE PERCENT (BEAKER) (test 20 % vqmy=740) MONOCYTES RELATIVE PERCENT (BEAKER) (test 4 % yuvq=281) EOSINOPHILS RELATIVE PERCENT (BEAKER) (test 2 % xito=130) BASOPHILS RELATIVE PERCENT (BEAKER) (test 0 % wbqv=669) NEUTROPHILS ABSOLUTE COUNT (BEAKER) (test 6.05 K/ L 1.56-6.13 qilf=795) LYMPHOCYTES ABSOLUTE COUNT (BEAKER) (test 1.64 K/ L 1.18-3.74 efvv=500) MONOCYTES ABSOLUTE COUNT (BEAKER) (test 0.33 K/ L 0.24-0.36 jslc=225) EOSINOPHILS ABSOLUTE COUNT (BEAKER) (test 0.12 K/ L 0.04-0.36 rzxt=807) BASOPHILS ABSOLUTE COUNT (BEAKER) (test 0.01 K/ L 0.01-0.08 twxn=401) IMMATURE GRANULOCYTES-RELATIVE PERCENT (BEAKER) 1 % 0-1 (test wepb=2558) RAD, CHEST, 1 VIEW, NON [id number] 21:51:00Reason for exam:->Stroke work up.Is the patient ?->UnknownShould this be performed at the bedside?- >YesFINAL REPORT Clinical History: Stroke workup Comparison Study: None Findings: The cardiac silhouette is enlarged. The lungs are within normal limits. The pleural spaces are clear. No significant bony or soft tissue abnormalities are seen. Impression: Cardiomegaly. Signed: Wellington Goodwin MDReport Verified Date/Time: 12/07/2017 21:51:29 Reading Location: [address] Consult Reading Room POCT-GLUCOSE [id number] 11:34:00 Test Item Value Reference Range Comments POC-GLUCOSE METER (BEAKER) 84 mg/dL 70-110 TESTED AT [facility] [address] [facility] (test qyjw=0813) [facility] [address] [id number] 08:58:00 Test Item Value Reference Range Comments PHOSPHORUS (BEAKER) (test ysmm=328) 4.4 mg/dL 2.3-4.7 [id number] 08:58:00 Test Item Value Reference Range Comments MAGNESIUM (BEAKER) (test cwcm=111) 2.3 mg/dL 1.6-2.6 BASIC METABOLIC [id number] 08:58:00 Test Item Value Reference Range Comments SODIUM (BEAKER) (test 142 meq/L 136-145 qahv=277) POTASSIUM (BEAKER) (test 3.9 meq/L 3.5-5.1 dvvq=435) CHLORIDE (BEAKER) (test 108 meq/L 98-107 zfmk=611) CO2 (BEAKER) (test 26 meq/L 22-29 ttzr=379) BLOOD UREA NITROGEN 16 mg/dL 7-21 (BEAKER) (test cgdh=760) CREATININE (BEAKER) (test 0.69 mg/dL 0.57-1.25 rphu=618) GLUCOSE RANDOM (BEAKER) 86 mg/dL 70-105 (test lqxh=895) CALCIUM (BEAKER) (test 8.6 mg/dL 8.4-10.2 aevy=205) EGFR (BEAKER) (test 94 mL/min/1.73 sq m ESTIMATED GFR IS NOT vevr=4555) ACCURATE CREATININE CLEARANCE IN PREDICTING GLOMERULAR FILTRATION RATE. ESTIMATED GFR IS NOT APPLICABLE FOR DIALYSIS PATIENTS. HEPATIC FUNCTION [id number] 08:58:00 Test Item Value Reference Range Comments TOTAL PROTEIN (BEAKER) (test cjoo=189) 6.8 gm/dL 6.0-8.3 ALBUMIN (BEAKER) (test wmnq=4166) 3.6 g/dL 3.5-5.0 BILIRUBIN TOTAL (BEAKER) (test kxgj=757) 0.4 mg/dL 0.2-1.2 BILIRUBIN DIRECT (BEAKER) (test jflt=021) 0.2 mg/dL 0.1-0.5 ALKALINE PHOSPHATASE (BEAKER) (test fuxx=586) 59 U/L 40-150 AST (SGOT) (BEAKER) (test cmhc=689) 24 U/L 5-34 ALT (SGPT) (BEAKER) (test hkze=480) 17 U/L 6-55 POCT-GLUCOSE [id number] 08:20:00 Test Item Value Reference Range Comments POC-GLUCOSE METER (BEAKER) 143 mg/dL 70-110 TESTED AT [address] (test ieei=3443) [facility] [address] PROTHROMBIN [id number] 05:55:00 Test Item Value Reference Range Comments PROTIME (BEAKER) (test qbpm=464) 13.4 seconds 11.7-14.7 INR (BEAKER) (test fjrh=887) 1.0 <=5.9 RECOMMENDED COUMADIN/WARFARIN INR THERAPY RANGESSTANDARD DOSE: 2.0 - 3.0 Includes: PROPHYLAXIS forvenous thrombosis, systemic embolization; TREATMENT for venous thrombosis and/or pulmonary embolus.HIGH RISK: Target INR is 2.5-3.5 for patients with mechanical heart valves.POCT-GLUCOSE [id number] 20:32:00 Test Item Value Reference Range Comments POC-GLUCOSE METER (BEAKER) 90 mg/dL 70-110 TESTED AT [address] (test mpbi=2929) [facility] [address] POCT-GLUCOSE [id number] 16:47:00 Test Item Value Reference Range Comments POC-GLUCOSE METER (BEAKER) 79 mg/dL 70-110 TESTED AT [facility] [address] [facility] (test fsza=6932) [facility] [address] POCT-GLUCOSE [id number] 07:47:00 Test Item Value Reference Range Comments POC-GLUCOSE METER (BEAKER) 97 mg/dL 70-110 TESTED AT [facility] [address] [facility] (test llmf=4029) [facility] [address] TROPONIN [id number] 07:02:00 Test Item Value Reference Range Comments TROPONIN I (BEAKER) (test xfrz=722) < ng/mL 0.00-0.03 Troponin I (TnI) levels [...] failure, acidosis, acute neurological disease, and persistent tachyarrhythmia.[id number] 07:00:00 Test Item Value Reference Range Comments PHOSPHORUS (BEAKER) (test sbsg=204) 5.0 mg/dL 2.3-4.7 [id number] 07:00:00 Test Item Value Reference Range Comments MAGNESIUM (BEAKER) (test soec=905) 1.9 mg/dL 1.6-2.6 BASIC METABOLIC [id number] 07:00:00 Test Item Value Reference Range Comments SODIUM (BEAKER) (test 141 meq/L 136-145 wwti=072) POTASSIUM (BEAKER) (test 4.0 meq/L 3.5-5.1 ntmd=802) CHLORIDE (BEAKER) (test 106 meq/L 98-107 pakg=287) CO2 (BEAKER) (test 25 meq/L 22-29 poeg=630) BLOOD UREA NITROGEN 14 mg/dL 7-21 (BEAKER) (test mmea=073) CREATININE (BEAKER) (test 0.72 mg/dL 0.57-1.25 syak=126) GLUCOSE RANDOM (BEAKER) 109 mg/dL 70-105 (test idch=991) CALCIUM (BEAKER) (test 9.5 mg/dL 8.4-10.2 fgsc=265) EGFR (BEAKER) (test 89 mL/min/1.73 sq m ESTIMATED GFR IS NOT gnxb=8517) ACCURATE CREATININE CLEARANCE IN PREDICTING GLOMERULAR FILTRATION RATE. ESTIMATED GFR IS NOT APPLICABLE FOR DIALYSIS PATIENTS. HEPATIC FUNCTION [id number] 07:00:00 Test Item Value Reference Range Comments TOTAL PROTEIN (BEAKER) (test oxai=137) 7.7 gm/dL 6.0-8.3 ALBUMIN (BEAKER) (test yfmd=2201) 4.0 g/dL 3.5-5.0 BILIRUBIN TOTAL (BEAKER) (test sxjh=056) 0.5 mg/dL 0.2-1.2 BILIRUBIN DIRECT (BEAKER) (test qdct=957) 0.2 mg/dL 0.1-0.5 ALKALINE PHOSPHATASE (BEAKER) (test waon=651) 69 U/L 40-150 AST (SGOT) (BEAKER) (test dlrv=316) 34 U/L 5-34 ALT (SGPT) (BEAKER) (test inxt=399) 21 U/L 6-55 PROTHROMBIN [id number] 06:31:00 Test Item Value Reference Range Comments PROTIME (BEAKER) (test bfgl=972) 14.0 seconds 11.7-14.7 INR (BEAKER) (test xjxn=871) 1.1 <=5.9 RECOMMENDED COUMADIN/WARFARIN INR THERAPY RANGESSTANDARD DOSE: 2.0 - 3.0 Includes: PROPHYLAXIS forvenous thrombosis, systemic embolization; TREATMENT for venous thrombosis and/or pulmonary embolus.HIGH RISK: Target INR is 2.5-3.5 for patients with mechanical heart valves.CBC W/PLT COUNT & AUTO [id number] 06:28:00 Test Item Value Reference Range Comments WHITE BLOOD CELL COUNT (BEAKER) (test twqs=688) 8.9 K/ L 3.5-10.5 RED BLOOD CELL COUNT (BEAKER) (test flfo=355) 4.55 M/ L 3.93-5.22 HEMOGLOBIN (BEAKER) (test rtsy=373) 13.0 GM/DL 11.2-15.7 HEMATOCRIT (BEAKER) (test nzyp=013) 42.0 % 34.1-44.9 MEAN CORPUSCULAR VOLUME (BEAKER) (test ttni=742) 92.3 fL 79.4-94.8 MEAN CORPUSCULAR HEMOGLOBIN (BEAKER) (test 28.6 pg 25.6-32.2 xysv=857) MEAN CORPUSCULAR HEMOGLOBIN CONC (BEAKER) (test 31.0 GM/DL 32.2-35.5 kxux=077) RED CELL DISTRIBUTION WIDTH (BEAKER) (test 13.9 % 11.7-14.4 zgbt=343) PLATELET COUNT (BEAKER) (test jwhs=962) 202 K/CU MM 150-450 MEAN PLATELET VOLUME (BEAKER) (test snio=626) 12.6 fL 9.4-12.3 NUCLEATED RED BLOOD CELLS (BEAKER) (test 0 /100 WBC 0-0 pihh=895) NEUTROPHILS RELATIVE PERCENT (BEAKER) (test 70 % hbso=839) LYMPHOCYTES RELATIVE PERCENT (BEAKER) (test 23 % yxpr=551) MONOCYTES RELATIVE PERCENT (BEAKER) (test 4 % qcmh=851) EOSINOPHILS RELATIVE PERCENT (BEAKER) (test 3 % ghzb=886) BASOPHILS RELATIVE PERCENT (BEAKER) (test 0 % rgkv=626) NEUTROPHILS ABSOLUTE COUNT (BEAKER) (test 6.19 K/ L 1.56-6.13 kkgi=080) LYMPHOCYTES ABSOLUTE COUNT (BEAKER) (test 2.03 K/ L 1.18-3.74 iomb=335) MONOCYTES ABSOLUTE COUNT (BEAKER) (test 0.37 K/ L 0.24-0.36 stfo=395) EOSINOPHILS ABSOLUTE COUNT (BEAKER) (test 0.24 K/ L 0.04-0.36 pkfd=371) BASOPHILS ABSOLUTE COUNT (BEAKER) (test 0.02 K/ L 0.01-0.08 gdrn=171) IMMATURE GRANULOCYTES-RELATIVE PERCENT (BEAKER) 0 % 0-1 (test tybm=1054) CREATINE KINASE (CK), TOTAL AND [id number] 01:39:00 Test Item Value Reference Range Comments CREATINE KINASE TOTAL (BEAKER) (test hlca=609) 55 U/L 29-200 CREATINE KINASE-MB (BEAKER) (test jdkg=892) 1.1 ng/mL 0.0-6.6 CREATINE KINASE-MB INDEX (BEAKER) (test qhqa=805) 2.0 % CK-MB Reference Range:<6.7 Normal6.7-10.0 Borderline>10.0 AbnormalTROPONIN [id number] 01:39:00 Test Item Value Reference Range Comments TROPONIN I (BEAKER) (test jroe=493) < ng/mL 0.00-0.03 Troponin I (TnI) levels [...] acidosis, acute neurological disease, and persistent tachyarrhythmia.POCT-GLUCOSE [id number] 12:39:00 Test Item Value Reference Range Comments POC-GLUCOSE METER (BEAKER) 80 mg/dL 70-110 TESTED AT [address] (test xtmv=2627) [place] [address] POCT-GLUCOSE [id number] 07:07:00 Test Item Value Reference Range Comments POC-GLUCOSE METER (BEAKER) 100 mg/dL 70-110 TESTED AT [address] (test bjgq=5230) [place] [address] POCT-GLUCOSE [id number] 21:12:00 Test Item Value Reference Range Comments POC-GLUCOSE METER (BEAKER) 138 mg/dL 70-110 TESTED AT [address] (test hsxq=2321) [place] [address] POCT-GLUCOSE [id number] 12:04:00 Test Item Value Reference Range Comments POC-GLUCOSE METER (BEAKER) 113 mg/dL 70-110 TESTED AT [address] (test ndym=7682) [place] [address] BASIC METABOLIC [id number] 04:26:00 Test Item Value Reference Range Comments SODIUM (BEAKER) (test 141 meq/L 136-145 fybt=841) POTASSIUM (BEAKER) (test 4.2 meq/L 3.5-5.1 Specimen moderately vcgt=446) hemolyzed CHLORIDE (BEAKER) (test 107 meq/L 98-107 ffrz=378) CO2 (BEAKER) (test 25 meq/L 22-29 biee=836) BLOOD UREA NITROGEN 13 mg/dL 7-21 (BEAKER) (test bref=895) CREATININE (BEAKER) (test 0.61 mg/dL 0.57-1.25 Specimen moderately flfa=864) hemolyzed GLUCOSE RANDOM (BEAKER) 93 mg/dL 70-105 (test vujp=720) CALCIUM (BEAKER) (test 9.0 mg/dL 8.4-10.2 wmsh=736) EGFR (BEAKER) (test 108 mL/min/1.73 sq m ESTIMATED GFR IS NOT orcw=3992) ACCURATE CREATININE CLEARANCE IN PREDICTING GLOMERULAR FILTRATION RATE. ESTIMATED GFR IS NOT APPLICABLE FOR DIALYSIS PATIENTS. CBC W/PLT COUNT & AUTO [id number] 04:02:00 Test Item Value Reference Range Comments WHITE BLOOD CELL COUNT (BEAKER) (test boek=525) 8.4 K/ L 3.5-10.5 RED BLOOD CELL COUNT (BEAKER) (test eaqk=238) 4.15 M/ L 3.93-5.22 HEMOGLOBIN (BEAKER) (test zwut=490) 11.8 GM/DL 11.2-15.7 HEMATOCRIT (BEAKER) (test rkvy=141) 37.9 % 34.1-44.9 MEAN CORPUSCULAR VOLUME (BEAKER) (test ocjq=721) 91.3 fL 79.4-94.8 MEAN CORPUSCULAR HEMOGLOBIN (BEAKER) (test 28.4 pg 25.6-32.2 zdik=798) MEAN CORPUSCULAR HEMOGLOBIN CONC (BEAKER) (test 31.1 GM/DL 32.2-35.5 dupg=456) RED CELL DISTRIBUTION WIDTH (BEAKER) (test 14.1 % 11.7-14.4 dkdw=440) PLATELET COUNT (BEAKER) (test wtrz=181) 200 K/CU MM 150-450 MEAN PLATELET VOLUME (BEAKER) (test ahnt=583) 11.9 fL 9.4-12.3 NUCLEATED RED BLOOD CELLS (BEAKER) (test 0 /100 WBC 0-0 gufn=187) NEUTROPHILS RELATIVE PERCENT (BEAKER) (test 73 % gtdn=250) LYMPHOCYTES RELATIVE PERCENT (BEAKER) (test 19 % fsmi=686) MONOCYTES RELATIVE PERCENT (BEAKER) (test 5 % zwcf=538) EOSINOPHILS RELATIVE PERCENT (BEAKER) (test 3 % kvmi=780) BASOPHILS RELATIVE PERCENT (BEAKER) (test 0 % nsva=534) NEUTROPHILS ABSOLUTE COUNT (BEAKER) (test 6.08 K/ L 1.56-6.13 odbu=073) LYMPHOCYTES ABSOLUTE COUNT (BEAKER) (test 1.62 K/ L 1.18-3.74 qyvn=330) MONOCYTES ABSOLUTE COUNT (BEAKER) (test 0.39 K/ L 0.24-0.36 mvwv=540) EOSINOPHILS ABSOLUTE COUNT (BEAKER) (test 0.24 K/ L 0.04-0.36 gcby=121) BASOPHILS ABSOLUTE COUNT (BEAKER) (test 0.01 K/ L 0.01-0.08 bqoc=288) IMMATURE GRANULOCYTES-RELATIVE PERCENT (BEAKER) 1 % 0-1 (test lotr=7350) CLOSTRIDIUM DIFFICILE TOXIN [id number] 13:44:00 Test Item Value Reference Range Comments CLOSTRIDIUM DIFFICILE TOXIN, PCR (BEAKER) (test Not Detected Not Detected ijtz=5369) This qualitative real-time polymerase chain reaction assay [...] a positive result is not recommended.CT, CTANGIO [id number] 06:59:00Addendum BeginsREPORT STATUS:A Three-dimensional post intravenous contrast images of the cerebral vasculature were created on a free standing workstation for better visualization of cerebral vascular anatomy and pathology. Signed: Skip Gardner MDReport Verified Date/Time: 04/12/2017 06:59:20 Reading Location: [address] Consult Reading RoomAddendum EndsFINAL REPORT Noncontrast [...] Gardner Verified Date/Time: 04/07/2017 01:12:44 Reading Location: [address] Consult Reading Room BASIC METABOLIC [id number] 05:37:00 Test Item Value Reference Range Comments SODIUM (BEAKER) (test 142 meq/L 136-145 oipk=516) POTASSIUM (BEAKER) (test 3.7 meq/L 3.5-5.1 Specimen slightly nbwd=628) hemolyzed CHLORIDE (BEAKER) (test 105 meq/L 98-107 fqzu=666) CO2 (BEAKER) (test 27 meq/L 22-29 gzcy=872) BLOOD UREA NITROGEN 11 mg/dL 7-21 (BEAKER) (test hvgs=092) CREATININE (BEAKER) (test 0.66 mg/dL 0.57-1.25 Specimen slightly loyn=324) hemolyzed GLUCOSE RANDOM (BEAKER) 97 mg/dL 70-105 (test zlgm=198) CALCIUM (BEAKER) (test 9.2 mg/dL 8.4-10.2 zwfl=075) EGFR (BEAKER) (test 99 mL/min/1.73 sq m ESTIMATED GFR IS NOT vdsr=1004) ACCURATE CREATININE CLEARANCE IN PREDICTING GLOMERULAR FILTRATION RATE. ESTIMATED GFR IS NOT APPLICABLE FOR DIALYSIS PATIENTS. CBC (HEMOGRAM ONLY)2017-04-12 05:17:00 Test Item Value Reference Range Comments WHITE BLOOD CELL COUNT (BEAKER) (test aiaz=456) 7.7 K/ L 3.5-10.5 RED BLOOD CELL COUNT (BEAKER) (test ztia=750) 4.17 M/ L 3.93-5.22 HEMOGLOBIN (BEAKER) (test wcfa=815) 12.0 GM/DL 11.2-15.7 HEMATOCRIT (BEAKER) (test qkyz=749) 38.0 % 34.1-44.9 MEAN CORPUSCULAR VOLUME (BEAKER) (test dddf=176) 91.1 fL 79.4-94.8 MEAN CORPUSCULAR HEMOGLOBIN (BEAKER) (test 28.8 pg 25.6-32.2 iebl=791) MEAN CORPUSCULAR HEMOGLOBIN CONC (BEAKER) (test 31.6 GM/DL 32.2-35.5 agex=979) RED CELL DISTRIBUTION WIDTH (BEAKER) (test 14.0 % 11.7-14.4 jijc=009) PLATELET COUNT (BEAKER) (test cyta=116) 219 K/CU MM 150-450 MEAN PLATELET VOLUME (BEAKER) (test xxbz=801) 11.6 fL 9.4-12.3 NUCLEATED RED BLOOD CELLS (BEAKER) (test 0 /100 WBC 0-0 dphc=297) POCT-GLUCOSE [id number] 17:55:00 Test Item Value Reference Range Comments POC-GLUCOSE METER (BEAKER) 111 mg/dL 70-110 TESTED AT [address] (test lwss=3009) [facility] [address] POCT-GLUCOSE [id number] 12:02:00 Test Item Value Reference Range Comments POC-GLUCOSE METER (BEAKER) 100 mg/dL 70-110 TESTED AT [address] (test vbxe=8549) [place] [id number] POCT-GLUCOSE [id number] 07:50:00 Test Item Value Reference Range Comments POC-GLUCOSE METER (BEAKER) 110 mg/dL 70-110 TESTED AT [address] (test axuz=4079) [place] [id number] POCT-GLUCOSE [id number] 16:56:00 Test Item Value Reference Range Comments POC-GLUCOSE METER (BEAKER) 104 mg/dL 70-110 TESTED AT [address] (test shcz=6220) [facility] [address] POCT-GLUCOSE [id number] 12:22:00 Test Item Value Reference Range Comments POC-GLUCOSE METER (BEAKER) 84 mg/dL 70-110 TESTED AT [address] (test ymiy=4974) [place] [id number] HEMOGLOBIN [id number] 08:46:00 Test Item Value Reference Range Comments HEMOGLOBIN A1C (BEAKER) (test fmuc=565) 6.2 % 4.3-6.1 BASIC METABOLIC [id number] 06:42:00 Test Item Value Reference Range Comments SODIUM (BEAKER) (test 142 meq/L 136-145 qzyh=902) POTASSIUM (BEAKER) (test 4.1 meq/L 3.5-5.1 Specimen slightly kfuo=639) hemolyzed CHLORIDE (BEAKER) (test 104 meq/L 98-107 pwwq=410) CO2 (BEAKER) (test 28 meq/L 22-29 yyhh=373) BLOOD UREA NITROGEN 9 mg/dL 7-21 (BEAKER) (test xewn=059) CREATININE (BEAKER) (test 0.60 mg/dL 0.57-1.25 Specimen slightly mmdh=395) hemolyzed GLUCOSE RANDOM (BEAKER) 96 mg/dL 70-105 (test wxor=421) CALCIUM (BEAKER) (test 9.1 mg/dL 8.4-10.2 qqjw=656) EGFR (BEAKER) (test 110 mL/min/1.73 sq m ESTIMATED GFR IS NOT cdpa=8997) ACCURATE CREATININE CLEARANCE IN PREDICTING GLOMERULAR FILTRATION RATE. ESTIMATED GFR IS NOT APPLICABLE FOR DIALYSIS PATIENTS. CBC W/PLT COUNT & AUTO [id number] 06:19:00 Test Item Value Reference Range Comments WHITE BLOOD CELL COUNT (BEAKER) (test lhla=581) 7.5 K/ L 3.5-10.5 RED BLOOD CELL COUNT (BEAKER) (test mtzr=217) 4.12 M/ L 3.93-5.22 HEMOGLOBIN (BEAKER) (test sjkx=399) 11.8 GM/DL 11.2-15.7 HEMATOCRIT (BEAKER) (test wkdq=762) 37.6 % 34.1-44.9 MEAN CORPUSCULAR VOLUME (BEAKER) (test jyai=046) 91.3 fL 79.4-94.8 MEAN CORPUSCULAR HEMOGLOBIN (BEAKER) (test 28.6 pg 25.6-32.2 mkcp=530) MEAN CORPUSCULAR HEMOGLOBIN CONC (BEAKER) (test 31.4 GM/DL 32.2-35.5 fvsu=598) RED CELL DISTRIBUTION WIDTH (BEAKER) (test 13.8 % 11.7-14.4 wywk=671) PLATELET COUNT (BEAKER) (test eswb=281) 192 K/CU MM 150-450 MEAN PLATELET VOLUME (BEAKER) (test fgrg=370) 11.6 fL 9.4-12.3 NUCLEATED RED BLOOD CELLS (BEAKER) (test 0 /100 WBC 0-0 pplp=084) NEUTROPHILS RELATIVE PERCENT (BEAKER) (test 77 % pyge=834) LYMPHOCYTES RELATIVE PERCENT (BEAKER) (test 16 % iumk=785) MONOCYTES RELATIVE PERCENT (BEAKER) (test 4 % easq=510) EOSINOPHILS RELATIVE PERCENT (BEAKER) (test 2 % xopp=977) BASOPHILS RELATIVE PERCENT (BEAKER) (test 0 % eyod=301) NEUTROPHILS ABSOLUTE COUNT (BEAKER) (test 5.82 K/ L 1.56-6.13 hinn=930) LYMPHOCYTES ABSOLUTE COUNT (BEAKER) (test 1.21 K/ L 1.18-3.74 uktk=891) MONOCYTES ABSOLUTE COUNT (BEAKER) (test 0.31 K/ L 0.24-0.36 klol=052) EOSINOPHILS ABSOLUTE COUNT (BEAKER) (test 0.15 K/ L 0.04-0.36 tmle=338) BASOPHILS ABSOLUTE COUNT (BEAKER) (test 0.01 K/ L 0.01-0.08 jioa=295) IMMATURE GRANULOCYTES-RELATIVE PERCENT (BEAKER) 1 % 0-1 (test lnld=1526) POCT-GLUCOSE [id number] 12:07:00 Test Item Value Reference Range Comments POC-GLUCOSE METER (BEAKER) 110 mg/dL 70-110 TESTED AT [facility] [address] [facility] (test vqmg=7374) [facility] [address] [address], BRAIN, WITHOUT [id number] 06:55:00FINAL REPORT Clinical history : Decreased alertnessComparison [...] Verified Date/Time: 04/09/2017 06 :55:25 Reading Location: [facility] [id number] Consult Reading Room BASIC METABOLIC [id number] 05:57:00 Test Item Value Reference Range Comments SODIUM (BEAKER) (test 140 meq/L 136-145 exul=849) POTASSIUM (BEAKER) (test 3.7 meq/L 3.5-5.1 nixj=513) CHLORIDE (BEAKER) (test 103 meq/L 98-107 marq=938) CO2 (BEAKER) (test 29 meq/L 22-29 tflh=587) BLOOD UREA NITROGEN 7 mg/dL 7-21 (BEAKER) (test gofc=799) CREATININE (BEAKER) (test 0.56 mg/dL 0.57-1.25 ladk=209) GLUCOSE RANDOM (BEAKER) 110 mg/dL 70-105 (test lslj=406) CALCIUM (BEAKER) (test 8.7 mg/dL 8.4-10.2 heqa=108) EGFR (BEAKER) (test 119 mL/min/1.73 sq m ESTIMATED GFR IS NOT jltc=2346) ACCURATE CREATININE CLEARANCE IN PREDICTING GLOMERULAR FILTRATION RATE. ESTIMATED GFR IS NOT APPLICABLE FOR DIALYSIS PATIENTS. CBC W/PLT COUNT & AUTO [id number] 04:54:00 Test Item Value Reference Range Comments WHITE BLOOD CELL COUNT (BEAKER) (test jtsw=489) 8.1 K/ L 3.5-10.5 RED BLOOD CELL COUNT (BEAKER) (test gzfo=948) 4.07 M/ L 3.93-5.22 HEMOGLOBIN (BEAKER) (test otei=273) 11.6 GM/DL 11.2-15.7 HEMATOCRIT (BEAKER) (test fqir=225) 37.3 % 34.1-44.9 MEAN CORPUSCULAR VOLUME (BEAKER) (test nbyh=483) 91.6 fL 79.4-94.8 MEAN CORPUSCULAR HEMOGLOBIN (BEAKER) (test 28.5 pg 25.6-32.2 cpji=616) MEAN CORPUSCULAR HEMOGLOBIN CONC (BEAKER) (test 31.1 GM/DL 32.2-35.5 ubmj=474) RED CELL DISTRIBUTION WIDTH (BEAKER) (test 13.6 % 11.7-14.4 ixpm=885) PLATELET COUNT (BEAKER) (test yggn=775) 171 K/CU MM 150-450 MEAN PLATELET VOLUME (BEAKER) (test kxwh=374) 11.3 fL 9.4-12.3 NUCLEATED RED BLOOD CELLS (BEAKER) (test 0 /100 WBC 0-0 qqrt=916) NEUTROPHILS RELATIVE PERCENT (BEAKER) (test 77 % mxon=574) LYMPHOCYTES RELATIVE PERCENT (BEAKER) (test 16 % then=880) MONOCYTES RELATIVE PERCENT (BEAKER) (test 5 % wezc=478) EOSINOPHILS RELATIVE PERCENT (BEAKER) (test 2 % vrfm=176) BASOPHILS RELATIVE PERCENT (BEAKER) (test 0 % prby=887) NEUTROPHILS ABSOLUTE COUNT (BEAKER) (test 6.20 K/ L 1.56-6.13 slzq=299) LYMPHOCYTES ABSOLUTE COUNT (BEAKER) (test 1.30 K/ L 1.18-3.74 xkod=556) MONOCYTES ABSOLUTE COUNT (BEAKER) (test 0.38 K/ L 0.24-0.36 ilzb=475) EOSINOPHILS ABSOLUTE COUNT (BEAKER) (test 0.14 K/ L 0.04-0.36 qymf=506) BASOPHILS ABSOLUTE COUNT (BEAKER) (test 0.01 K/ L 0.01-0.08 ltdq=020) IMMATURE GRANULOCYTES-RELATIVE PERCENT (BEAKER) 1 % 0-1 (test llms=5897) POCT-GLUCOSE [id number] 01:34:00 Test Item Value Reference Range Comments POC-GLUCOSE METER (BEAKER) 92 mg/dL 70-110 TESTED AT [address] (test rryi=9011) [place] [id number] POCT-GLUCOSE [id number] 19:20:00 Test Item Value Reference Range Comments POC-GLUCOSE METER (BEAKER) 85 mg/dL 70-110 TESTED AT [address] (test kjnq=0743) [place] [address] [address], BRAIN, WITHOUT [id number] 15:47:00FINAL REPORT CT head without contrast. Comparisons: [...] Tijer[place]eport Verified Date/Time: 04/08/2017 15:47:42 POCT- GLUCOSE [id number] 12:44:00 Test Item Value Reference Range Comments POC-GLUCOSE METER (BEAKER) 94 mg/dL 70-110 TESTED AT [facility] [address] [facility] (test qphh=6890) [facility] [address] BASIC METABOLIC [id number] 05:05:00 Test Item Value Reference Range Comments SODIUM (BEAKER) (test 142 meq/L 136-145 hyrd=088) POTASSIUM (BEAKER) (test 4.0 meq/L 3.5-5.1 tnix=606) CHLORIDE (BEAKER) (test 107 meq/L 98-107 sxii=119) CO2 (BEAKER) (test 27 meq/L 22-29 esfl=257) BLOOD UREA NITROGEN 9 mg/dL 7-21 (BEAKER) (test fkdr=594) CREATININE (BEAKER) (test 0.59 mg/dL 0.57-1.25 kkcp=529) GLUCOSE RANDOM (BEAKER) 105 mg/dL 70-105 (test tscu=431) CALCIUM (BEAKER) (test 8.7 mg/dL 8.4-10.2 graf=776) EGFR (BEAKER) (test 112 mL/min/1.73 sq m ESTIMATED GFR IS NOT dyir=6523) ACCURATE CREATININE CLEARANCE IN PREDICTING GLOMERULAR FILTRATION RATE. ESTIMATED GFR IS NOT APPLICABLE FOR DIALYSIS PATIENTS. CBC W/PLT COUNT & AUTO [id number] 04:28:00 Test Item Value Reference Range Comments WHITE BLOOD CELL COUNT (BEAKER) (test muvh=940) 7.1 K/ L 3.5-10.5 RED BLOOD CELL COUNT (BEAKER) (test lnrb=719) 3.90 M/ L 3.93-5.22 HEMOGLOBIN (BEAKER) (test atqx=367) 11.0 GM/DL 11.2-15.7 HEMATOCRIT (BEAKER) (test rbon=806) 36.6 % 34.1-44.9 MEAN CORPUSCULAR VOLUME (BEAKER) (test xaby=401) 93.8 fL 79.4-94.8 MEAN CORPUSCULAR HEMOGLOBIN (BEAKER) (test 28.2 pg 25.6-32.2 mhtu=021) MEAN CORPUSCULAR HEMOGLOBIN CONC (BEAKER) (test 30.1 GM/DL 32.2-35.5 dkzd=999) RED CELL DISTRIBUTION WIDTH (BEAKER) (test 14.2 % 11.7-14.4 ynqy=897) PLATELET COUNT (BEAKER) (test hlvc=411) 187 K/CU MM 150-450 MEAN PLATELET VOLUME (BEAKER) (test ddjt=123) 10.9 fL 9.4-12.3 NUCLEATED RED BLOOD CELLS (BEAKER) (test 0 /100 WBC 0-0 nbaj=330) NEUTROPHILS RELATIVE PERCENT (BEAKER) (test 73 % rkdn=309) LYMPHOCYTES RELATIVE PERCENT (BEAKER) (test 19 % lkim=566) MONOCYTES RELATIVE PERCENT (BEAKER) (test 5 % jnhb=221) EOSINOPHILS RELATIVE PERCENT (BEAKER) (test 2 % dtud=958) BASOPHILS RELATIVE PERCENT (BEAKER) (test 0 % cjvc=295) NEUTROPHILS ABSOLUTE COUNT (BEAKER) (test 5.22 K/ L 1.56-6.13 jybv=051) LYMPHOCYTES ABSOLUTE COUNT (BEAKER) (test 1.37 K/ L 1.18-3.74 zjci=490) MONOCYTES ABSOLUTE COUNT (BEAKER) (test 0.34 K/ L 0.24-0.36 nksq=561) EOSINOPHILS ABSOLUTE COUNT (BEAKER) (test 0.13 K/ L 0.04-0.36 hwcm=807) BASOPHILS ABSOLUTE COUNT (BEAKER) (test 0.01 K/ L 0.01-0.08 eoon=494) IMMATURE GRANULOCYTES-RELATIVE PERCENT (BEAKER) 1 % 0-1 (test vdkj=9398) POCT-GLUCOSE [id number] 17:32:00 Test Item Value Reference Range Comments POC-GLUCOSE METER (BEAKER) 90 mg/dL 70-110 TESTED AT [address] (test qxah=9828) [place] [address] POCT-GLUCOSE [id number] 12:02:00 Test Item Value Reference Range Comments POC-GLUCOSE METER (BEAKER) 91 mg/dL 70-110 TESTED AT [address] (test ptax=3291) [place] [address] EEG AWAKE AND [id number] 11:38:00Reason for exam:->R/O subclinical seizuresDATE OF [id number] OF REPORT: [id number]: [id number]: 17- 1801Start time: 09:54Stop time: 10:18ICD-10: G 93.40CPT Code: 13964 HISTORY: 41 y.o. female with history of morbid obesity, DM2 who presented today to OSH with R sided facial droop and LUE weakness . Patient was evaluated at OSH where patient was started with tPA after normal CT. Now with acute encephalopathy MEDICATIONS THAT COULD AFFECT EEG: TECHNICAL SUMMARY: This is a digital EEG recorded with 32 input channels on a [employer] system and then reviewed with bipolar and [...] additional EEG recordings. Javi Mae MDNeurophysiology Fellow [id number] Note: I personally reviewed this EEG record in its entirety and I agreewith the details of this report. Kitty Benson MD, PhDEpilepsy Attending 11 :38 AMCREATINE KINASE (CK), TOTAL AND [id number] 09:35:00 Test Item Value Reference Range Comments CREATINE KINASE TOTAL (BEAKER) (test ldge=366) 52 U/L 29-200 CREATINE KINASE-MB (BEAKER) (test qcix=950) 1.2 ng/mL 0.0-6.6 CREATINE KINASE-MB INDEX (BEAKER) (test apoq=975) 2.3 % CK-MB Reference Range:<6.7 Normal6.7-10.0 Borderline>10.0 AbnormalTROPONIN [id number] 09:31:00 Test Item Value Reference Range Comments TROPONIN I (BEAKER) (test kvck=829) < ng/mL 0.00-0.03 Troponin I (TnI) levels [...] failure, acidosis, acute neurological disease, and persistent tachyarrhythmia.[id number] 09:28:00 Test Item Value Reference Range Comments AMMONIA (BEAKER) (test nddq=989) 34 mol/L 18-72 TSH/FREE T4 IF [id number] 04:28:00 Test Item Value Reference Range Comments THYROID STIMULATING HORMONE (BEAKER) (test 1.12 uIU/mL 0.35-4.94 yagv=658) VITAMIN B12 AND [id number] 04:28:00 Test Item Value Reference Range Comments VITAMIN B12 (BEAKER) (test pbta=819) 417 pg/mL 213-816 FOLATE (BEAKER) (test tdfn=379) 13.6 ng/mL >=7.0 CBC W/PLT COUNT & AUTO [id number] 03:27:00 Test Item Value Reference Range Comments WHITE BLOOD CELL COUNT (BEAKER) (test eiww=287) 8.1 K/ L 3.5-10.5 RED BLOOD CELL COUNT (BEAKER) (test cnzw=059) 3.91 M/ L 3.93-5.22 HEMOGLOBIN (BEAKER) (test kwha=674) 11.4 GM/DL 11.2-15.7 HEMATOCRIT (BEAKER) (test arns=067) 35.8 % 34.1-44.9 MEAN CORPUSCULAR VOLUME (BEAKER) (test yayb=254) 91.6 fL 79.4-94.8 MEAN CORPUSCULAR HEMOGLOBIN (BEAKER) (test 29.2 pg 25.6-32.2 cngu=839) MEAN CORPUSCULAR HEMOGLOBIN CONC (BEAKER) (test 31.8 GM/DL 32.2-35.5 bgdc=161) RED CELL DISTRIBUTION WIDTH (BEAKER) (test 14.3 % 11.7-14.4 rmoc=947) PLATELET COUNT (BEAKER) (test afch=677) 166 K/CU MM 150-450 MEAN PLATELET VOLUME (BEAKER) (test zklo=793) 12.4 fL 9.4-12.3 NUCLEATED RED BLOOD CELLS (BEAKER) (test 0 /100 WBC 0-0 mzwx=494) NEUTROPHILS RELATIVE PERCENT (BEAKER) (test 78 % hcub=410) LYMPHOCYTES RELATIVE PERCENT (BEAKER) (test 16 % xgca=261) MONOCYTES RELATIVE PERCENT (BEAKER) (test 4 % iwyx=130) EOSINOPHILS RELATIVE PERCENT (BEAKER) (test 1 % akuf=388) BASOPHILS RELATIVE PERCENT (BEAKER) (test 0 % qnzv=022) NEUTROPHILS ABSOLUTE COUNT (BEAKER) (test 6.27 K/ L 1.56-6.13 swgo=341) LYMPHOCYTES ABSOLUTE COUNT (BEAKER) (test 1.30 K/ L 1.18-3.74 hgxp=374) MONOCYTES ABSOLUTE COUNT (BEAKER) (test 0.32 K/ L 0.24-0.36 gfgd=676) EOSINOPHILS ABSOLUTE COUNT (BEAKER) (test 0.09 K/ L 0.04-0.36 gxge=230) BASOPHILS ABSOLUTE COUNT (BEAKER) (test 0.02 K/ L 0.01-0.08 nolj=592) IMMATURE GRANULOCYTES-RELATIVE PERCENT (BEAKER) 1 % 0-1 (test yvmk=5330) CREATINE KINASE (CK), TOTAL AND [id number] 03:11:00 Test Item Value Reference Range Comments CREATINE KINASE TOTAL (BEAKER) (test kczo=569) 71 U/L 29-200 CREATINE KINASE-MB (BEAKER) (test nonm=258) 1.5 ng/mL 0.0-6.6 CREATINE KINASE-MB INDEX (BEAKER) (test lrnc=799) 2.1 % CK-MB Reference Range:<6.7 Normal6.7-10.0 Borderline>10.0 AbnormalFastingFastingTROPONIN [id number] 03:11:00 Test Item Value Reference Range Comments TROPONIN I (BEAKER) (test meal=096) < ng/mL 0.00-0.03 Troponin I (TnI) levels [...] acute neurological disease, and persistent tachyarrhythmia.FastingBASIC METABOLIC [id number] 03:04:00 Test Item Value Reference Range Comments SODIUM (BEAKER) (test 139 meq/L 136-145 eqzg=497) POTASSIUM (BEAKER) (test 4.3 meq/L 3.5-5.1 Specimen moderately joqj=054) hemolyzed CHLORIDE (BEAKER) (test 107 meq/L 98-107 wust=148) CO2 (BEAKER) (test 24 meq/L 22-29 rarc=061) BLOOD UREA NITROGEN 12 mg/dL 7-21 (BEAKER) (test xzgl=095) CREATININE (BEAKER) (test 0.68 mg/dL 0.57-1.25 Specimen moderately ulsc=405) hemolyzed GLUCOSE RANDOM (BEAKER) 175 mg/dL 70-105 (test bfua=551) CALCIUM (BEAKER) (test 8.5 mg/dL 8.4-10.2 czot=557) EGFR (BEAKER) (test 95 mL/min/1.73 sq m ESTIMATED GFR IS NOT vpsa=3513) ACCURATE CREATININE CLEARANCE IN PREDICTING GLOMERULAR FILTRATION RATE. ESTIMATED GFR IS NOT APPLICABLE FOR DIALYSIS PATIENTS. FastingLIPID [id number] 03:04:00 Test Item Value Reference Range Comments TRIGLYCERIDES (BEAKER) (test 99 mg/dL Specimen moderately oroy=608) hemolyzed CHOLESTEROL (BEAKER) (test 139 mg/dL Specimen moderately mygg=955) hemolyzed HDL CHOLESTEROL (BEAKER) (test 43 mg/dL otpw=003) LDL CHOLESTEROL CALCULATED 76 mg/dL (BEAKER) (test yixq=466) Triglyceride Reference Range: Low Risk <150 Borderline 150- 199 High Risk 200-499 Very High Risk >=500Cholesterol Reference Range: Low Risk <200 Borderline 200-239 High Risk > 240HDL Cholesterol Reference Range: Low Risk >=60 High Risk <40LDL Cholesterol Reference Range: Optimal <100 Near Optimal 100-129 Borderline 130-159 High 160-189 Very High >=190 FastingHEPATIC FUNCTION [id number] 03:04:00 Test Item Value Reference Range Comments TOTAL PROTEIN (BEAKER) (test 7.2 gm/dL 6.0-8.3 Specimen moderately hemolyzed szdw=179) ALBUMIN (BEAKER) (test 3.4 g/dL 3.5-5.0 Specimen moderately hemolyzed [id number]) BILIRUBIN TOTAL (BEAKER) (test 0.3 mg/dL 0.2-1.2 Specimen moderately hemolyzed anpl=730) BILIRUBIN DIRECT (BEAKER) 0.1 mg/dL 0.1-0.5 Specimen moderately hemolyzed (test lvox=237) ALKALINE PHOSPHATASE (BEAKER) 74 U/L 40-150 (test ztkk=782) AST (SGOT) (BEAKER) (test 37 U/L 5-34 Specimen moderately hemolyzed chmv=647) ALT (SGPT) (BEAKER) (test 18 U/L 6-55 Specimen moderately seuj=884) hemolyzed Fasting
--- NOTE | 2018-05-07 07:31 | RAD REPORT ---
EXAM DESCRIPTION: CT - Ct Stroke Brain Wo Cont - 05/07/2018 7:04 am CLINICAL HISTORY: HEADACHE CVA COMPARISON: Head angio dated 12/07/2017; Ct Stroke Brain Wo Cont dated 12/07/2017 TECHNIQUE: All CT scans are performed using dose optimization technique as appropriate and may inclu de automated exposure control or mA/KV adjustment according to patient size. FINDINGS: No intracranial hemorrhage, hydrocephalus or extra-axial fluid collection.No areas of brai n edema or evidence of midline shift. The paranasal sinuses and mastoids are clear. The calvarium is intact. IMPRESSION: No acute intracranial abnormality. If there is continued clinical concern for CVA, MR i maging of the brain would be recommended.
[2018-05-07] MEDS ORDERED: FENTANYL CITR 100 MCG/2 ML ONE (07:44)
[2018-05-07] MEDS ORDERED: ONDANSETRON 4 MG/2 ML VIAL ONE (07:44)
[2018-05-07] MEDS ORDERED: NA CHLORIDE 0.9% 1,000 ML ONE (07:44)
[2018-05-07 07:53] LABS: Absolute Lymphocytes (CBC) 1.5 K/uL (0.7-4.9); Absolute Monocytes 0.4 K/uL (0.1-1.3); Absolute Neutrophil 6.3 K/uL (1.8-8.0); Basophils % 0.3 % (0-1.3); Eosinophils % 2.1 % (0-4.4); Hematocrit 36.8 % (36.0-45.0); MCH 28.7 pg (27.0-35.0); MCV 86.7 fL (80-100); MPV 9.5 fL (7.6-11.3); Monocytes % 4.6 % (3.3-12.3); RBC Red Blood Cell Count 4.24 M/uL (3.86-4.86)
[2018-05-07 07:57] LABS: Protime INR 1.08
[2018-05-07] MEDS ORDERED: HYDROMORPHONE HCL 1 MG/ML INJ ONE (08:13)
[2018-05-07 09:03] LABS: ALT/SGPT 16 U/L (12-78); AST/SGOT 19 U/L (15-37); Albumin 3.3 g/dL (3.4-5.0); Alkaline Phosphatase 81 U/L (45-117); BUN Blood Urea Nitrogen 13 mg/dL (7-18); Bicarbonate 29 mmol/L (21-32); Bilirubin Direct 0.1 mg/dL (0-0.2); Bilirubin Total 0.3 mg/dL (0.2-1.0); Glucose Level 112 mg/dL (74-106); Magnesium 2.1 mg/dL (1.8-2.4); NT PRO-BNP 17 pg/mL (<125); Protein, Total 7.3 g/dL (6.4-8.2); Sodium Level 143 mmol/L (136-145); Troponin (Emerg Dept Use Only) < 0.02 ng/mL (0.0-0.045)
[2018-05-07] MEDS ORDERED: KETOROLAC 30 MG/ML INJ ONE (09:21)
[2018-05-07 09:29] LABS: Urine Blood 2+ (NEG); Urine Glucose TRACE (NEG); Urine Protein NEGATIVE (NEG)
[2018-05-07] MEDS ORDERED: CEFTRIAXONE/SWI 1gm 1 GM/10 ML SYR ONE (09:29)
--- NOTE | 2018-05-07 10:20 | RAD REPORT ---
EXAM DESCRIPTION: CT - Head angio - 05/07/2018 9:01 am CLINICAL HISTORY: headache CVA COMPARISON: Ct Stroke Brain Wo Cont dated 05/07/2018; Head angio dated 12/07/2017 TECHNIQUE: CT angiography of the head was performed with MIPs. All CT scans are performed using dose optimization technique as appropriate and may include automated exposure control or mA/KV adjustment according to patient size. FINDINGS: No evidence of aneurysm is detected. No flow-limiting stenosis or vascular malformation id entified. Antegrade flow is seen in the vertebral arteries. The vertebral arteries are codominant. The visualized dural venous sinuses are patent. IMPRESSION: No significant flow abnormality is detected.
--- NOTE | 2018-05-07 10:25 | EDPHYS ---
Physician Documentation [facility] Name: Kelle Calderón Age: 42 yrs Sex: Female : 1975 Arrival Date: 05/07/2018 Time: 06:21 Bed 5 Private MD: Bridgett Dhaliwal ED Physician Grabiel Harper HPI: 05/07 07:31 This 42 yrs old Female presents to ER via Wheelchair with complaints of lisa Headache. 07:31 The patient complains of pain to the top of head, forehead, left frontal area, left lisa temporal area, right frontal area, right side of the back of head, right temporal area and right side of forehead. The patient describes the headache as constant. Onset: The symptoms/episode began/occurred this morning. Associated signs and symptoms: Pertinent positives: Photophobia. Severity of symptoms: At its worst the pain was moderate, severe, in the emergency department the pain is unchanged. Headache History: The patient has had previous headaches and this one is similar to previous episodes. 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 - Social history:: Smoking status: Patient/guardian denies using tobacco. - Ebola Screening: : No symptoms or risks identified at this time. - Family history:: not pertinent. ROS: 07:31 Constitutional: Negative for fever, chills, and weight loss, Eyes: Negative for injury, lisa pain, redness, and discharge, ENT: Negative for injury, pain, and discharge, Neck: Negative for injury, pain, and swelling, Cardiovascular: Negative for chest pain, palpitations, and edema, Respiratory: Negative for shortness of breath, cough, wheezing, and pleuritic chest pain, Abdomen/GI: Negative for abdominal pain, nausea, vomiting, diarrhea, and constipation, Back: Negative for injury and pain, : Negative for injury, bleeding, discharge, and swelling, MS/Extremity: Negative for injury and deformity, Skin: Negative for injury, rash, and discoloration, Psych: Negative for depression, anxiety, suicide ideation, homicidal ideation, and hallucinations, Allergy/Immunology: Negative for hives, rash, and allergies, Endocrine: Negative for neck swelling, polydipsia, polyuria, polyphagia, and marked weight changes, Hematologic/Lymphatic: Negative for swollen nodes, abnormal bleeding, and unusual bruising. 07:31 Neuro: Positive for headache. Exam: 07:31 Constitutional: This is a well developed, well nourished patient who is awake, alert, lisa and in no acute distress. Head/Face: Normocephalic, atraumatic. Eyes: Pupils equal round and reactive to light, extra-ocular motions intact. Lids and lashes normal. Conjunctiva and sclera are non-icteric and not injected. Cornea within normal limits. Periorbital areas with no swelling, redness, or edema. ENT: Nares patent. No nasal discharge, no septal abnormalities noted. Tympanic membranes are normal and external auditory canals are clear. Oropharynx with no redness, swelling, or masses, exudates, or evidence of obstruction, uvula midline. Mucous membranes moist. Neck: Trachea midline, no thyromegaly or masses palpated, and no cervical lymphadenopathy. Supple, full range of motion without nuchal rigidity, or vertebral point tenderness. No Meningismus. Chest/axilla: Normal chest wall appearance and motion. Nontender with no deformity. No lesions are appreciated. Cardiovascular: Regular rate and rhythm with a normal S1 and S2. No gallops, murmurs, or rubs. Normal PMI, no JVD. No pulse deficits. Respiratory: Lungs have equal breath sounds bilaterally, clear to auscultation and percussion. No rales, rhonchi or wheezes noted. No increased work of breathing, no retractions or nasal flaring. Abdomen/GI: Soft, non-tender, with normal bowel sounds. No distension or tympany. No guarding or rebound. No evidence of tenderness throughout. Back: No spinal tenderness. No costovertebral tenderness. Full range of motion. Female : Normal external genitalia. Skin: Warm, dry with normal turgor. Normal color with no rashes, no lesions, and no evidence of cellulitis. MS/ Extremity: Pulses equal, no cyanosis. Neurovascular intact. Full, normal range of motion. Neuro: Awake and alert, GCS 15, oriented to person, place, time, and situation. Cranial nerves II-XII grossly intact. Motor strength 5/5 in all extremities. Sensory grossly intact. Cerebellar exam normal. Normal gait. Psych: Awake, alert, with orientation to person, place and time. Behavior, mood, and affect are within normal limits. 07:31 Neck: ROM/movement: is normal, no acute changes, Meningeal signs: are not present, Kernig's sign is negative, Brudzinski's sign is negative. 09:07 Neck: ROM/movement: [facility] Vital Signs: 06:31 BP 156 / 114; Pulse 114; Resp 18; Temp 97.2; Pulse Ox 99% ; Weight 136.08 kg; Height 5 ea ft. 5 in. (165.10 cm); Pain 10/10; 07:57 BP 134 / 77; Pulse 65; Resp 18; Pulse Ox 98% on R/A; la1 09:58 BP 121 / 69; Pulse 57; Resp 16; Pulse Ox 95% on R/A; la1 10:41 BP 119 / 71; Pulse 74; Resp 16; Temp 98.5; Pulse Ox 100% on R/A; la1 06:31 Body Mass Index 49.92 (136.08 kg, 165.10 cm) ea MDM: 06:36 Patient medically screened. 07:33 Data reviewed: vital signs, nurses notes, lab test result(s), EKG, radiologic studies, [facility] CT scan, plain films. 08:03 Patient medically screened. [facility] 05/07 07:31 Order name: Basic Metabolic Panel; Complete Time: 09:06 [facility] 05/07 07:31 Order name: CBC with Diff; Complete Time: 08:04 [facility] 05/07 07:31 Order name: LFT's; Complete Time: 09:06 [facility] 05/07 07:31 Order name: Magnesium; Complete Time: 09:06 [facility] 05/07 07:31 Order name: NT PRO-BNP; Complete Time: 09:06 [facility] 05/07 07:31 Order name: PT-INR; Complete Time: 08:04 [facility] 05/07 07:31 Order name: Troponin (emerg Dept Use Only); Complete Time: 09:06 [facility] 05/07 07:31 Order name: Acetaminophen; Complete Time: 09:06 [facility] 05/07 07:31 Order name: ETOH Level; Complete Time: 08:53 [facility] 05/07 07:31 Order name: Ptt, Activated; Complete Time: 08:04 [facility] 05/07 07:31 Order name: Salicylate; Complete Time: 08:53 [facility] 05/07 07:31 Order name: Urine Drug Screen [facility] 05/07 07:31 Order name: Urine Culture [facility] 05/07 09:23 Order name: Urine Dipstick--Ancillary (enter results); Complete Time: 10:05 05/07 06:42 Order name: CT Stroke Brain w/o Contrast; Complete Time: 08:04 05/07 07:31 Order name: XRAY Chest (1 view) [facility] 05/07 07:31 Order name: EKG; Complete Time: 07:32 [facility] 05/07 07:31 Order name: Cardiac monitoring; Complete Time: 07:42 [facility] 05/07 07:31 Order name: EKG - Nurse/Tech; Complete Time: 07:47 [facility] 05/07 07:31 Order name: IV Saline Lock; Complete Time: 07:42 [facility] 05/07 07:31 Order name: Labs collected and sent; Complete Time: 07:42 [facility] 05/07 07:38 Order name: Head angio; Complete Time: 10:23 EDMS 05/07 09:23 Order name: Urine --Ancillary (enter results); Complete Time: 10:05 05/07 07:31 Order name: O2 Per Protocol; Complete Time: 07:42 [facility] 05/07 07:31 Order name: O2 Sat Monitoring; Complete Time: 07:42 [facility] 05/07 07:31 Order name: Urine Dipstick-Ancillary (obtain specimen); Complete Time: 09:07 [facility] 05/07 07:31 Order name: Urine Test (obtain specimen); Complete Time: 09:07 [facility] Administered Medications: 07:41 Drug: NS 0.9% 1000 ml Route: IV; Rate: 125 ml/hr; Site: right forearm; la1 07:41 Drug: fentaNYL (PF) 50 mcg Route: IVP; Site: right forearm; la1 07:46 Follow up: Response: No adverse reaction; Pain is decreased la1 07:41 Drug: Zofran 4 mg Route: IVP; Site: right forearm; la1 07:46 Follow up: Response: No adverse reaction la1 08:10 Drug: Dilaudid 1 mg Route: IVP; Site: right forearm; la1 09:06 Follow up: Response: No adverse reaction; Pain is decreased la1 08:11 Not Given (Patient Refused): Zofran 4 mg IVP once; over 2 minutes la1 09:18 Drug: TORadol 30 mg Route: IVP; Site: right forearm; la1 09:56 Follow up: Response: No adverse reaction; Pain is decreased la1 09:24 Drug: Rocephin - (cefTRIAXone) 1 grams Route: IVPB; Infused Over: 30 mins; Site: right la1 forearm; Disposition: 05/07/18 10:24 Discharged to Home. Impression: Headache, Urinary tract infection, site not specified. - Condition is Stable. - Discharge Instructions: Type 2 Diabetes Mellitus, Diagnosis, Adult, Dysuria, General Headache Without Cause, Urinary Tract Infection, Adult, Urinary Tract Infection, Adult, Mjqw-lm-Iauh, General Headache Without Cause, Ombj-wx-Uais, Type 2 Diabetes Mellitus, Diagnosis, Adult, Tsej-rq-Mkai. - Prescriptions for Fioricet with Codeine 50- 325-40-30 mg Oral capsule - take 1 capsule by ORAL route every 4 hours as needed not to exceed 6 capsules per 24hrs; 26 capsule. Zofran 4 mg Oral Tablet - take 1 tablet by ORAL route every 12 hours As needed; 20 tablet. Cipro 500 mg Oral Tablet - take 1 tablet by ORAL route every 12 hours for 7 days; 14 tablet. - Medication Reconciliation Form, Thank You Letter, Antibiotic Education, Prescription Opioid Use form. - Follow up: Private Physician; When: 2 - 3 days; Reason: Recheck today's complaints, Continuance of care, Re-evaluation by your physician. Follow up: Freddie Dee; When: 2 - 3 days; Reason: Recheck today's complaints, Continuance of care, Re-evaluation by your physician. - Problem is new. - Symptoms have improved. Signatures: Dispatcher [employer] Ama Avalos FNP-C FNP-Grabiel Plummer MD MD cha Attema, Lee, RN RN la1 Jeanette Barnard RN RN ea Corrections: (The following items were deleted from the chart) 10:42 10:24 05/07/2018 10:24 Discharged to Home. Impression: Headache; Urinary tract la1 infection, site not specified. Condition is Stable. Discharge Instructions: Type 2 Diabetes Mellitus, Diagnosis, Adult, General Headache Without Cause, General Headache Without Cause, Omaq-yv-Yoqv, Type 2 Diabetes Mellitus, Diagnosis, Adult, Ynqz-ct-Yrsc, Dysuria, Urinary Tract Infection, Adult, Urinary Tract Infection, Adult, Blli-io-Gnxg. Prescriptions for Fioricet with Codeine 45-461-59-30 mg Oral capsule - take 1 capsule by ORAL route every 4 hours as needed not to exceed 6 capsules per 24hrs; 26 capsule, Zofran 4 mg Oral Tablet - take 1 tablet by ORAL route every 12 hours As needed; 20 tablet, Cipro 500 mg Oral Tablet - take 1 tablet by ORAL route every 12 hours for 7 days; 14 tablet. and Forms are Medication Reconciliation Form, Thank You Letter, Antibiotic Education, Prescription Opioid Use. Follow up: Private Physician; When: 2 - 3 days; Reason: Recheck today's complaints, Continuance of care, Re-evaluation by your physician. Follow up: Freddie Dee; When: 2 - 3 days; Reason: Recheck today's complaints, Continuance of care, Re-evaluation by your physician. Problem is new. Symptoms have improved. lisa
--- NOTE | 2018-05-07 10:25 | ER ---
Nurse's Notes [facility] Name: Kelle Calderón Age: 42 yrs Sex: Female : 1975 Arrival Date: 05/07/2018 Time: 06:21 Bed 5 Private MD: Bridgett Dhaliwal Diagnosis: Headache;Urinary tract infection, site not specified Presentation: 05/07 06:29 Presenting complaint: Patient states: Pt reports pt started having headache ea around an hour ago. Pt reports it is a 03/22. Transition of care: patient was not received from another setting of care. Onset of symptoms was May 07, 2018. Risk Assessment: Do you want to hurt yourself or someone else? Patient reports no desire to harm self or others. Initial Sepsis Screen: Does the patient meet any 2 criteria? No. Patient's initial sepsis screen is negative. Does the patient have a suspected source of infection? No. Patient's initial sepsis screen is negative. Care prior to arrival: None. 06:29 Method Of Arrival: Wheelchair ea 06:29 Acuity: SIMRAN 3 ea Triage Assessment: 06:32 Headache History: The patient has had previous headaches and this one is more severe ea than previous episodes. General: Appears uncomfortable, Behavior is restless. Pain: Complains of pain in left frontal area, left side of the back of head, left temporal area, right frontal area, right side of the back of head and right temporal area Pain currently is 10 out of 10 on a pain scale. Quality of pain is described as aching, Pain began 1 hour ago. Also complains of nausea. Neuro: Level of Consciousness is awake, alert, obeys commands, Oriented to person, place, time. Cardiovascular: Patient's skin is warm and dry. Respiratory: Airway is patent Respiratory effort is even, unlabored, Respiratory pattern is regular, symmetrical. Derm: Skin is pink, warm \T\ dry. 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 - Social history:: Smoking status: Patient/guardian denies using tobacco. - Ebola Screening: : No symptoms or risks identified at this time. - Family history:: not pertinent. Screenin:35 Abuse screen: Denies threats or abuse. Nutritional screening: No deficits noted. ea Tuberculosis screening: No symptoms or risk factors identified. Fall Risk None identified. Assessment: 07:27 General: Appears uncomfortable, Behavior is calm, cooperative. Pain: Complains of pain la1 in right frontal area and scalp and left temporal area Pain currently is 10 out of 10 on a pain scale. Neuro: Level of Consciousness is awake, alert, obeys commands, Oriented to person, place, time, situation, Manager Ship are equal bilaterally Moves all extremities. Speech is normal, Facial symmetry appears normal, Pupils are PERRLA. Cardiovascular: Heart tones S1 S2 present Capillary refill < 3 seconds Patient's skin is warm and dry. Respiratory: Airway is patent Respiratory effort is even, unlabored, Respiratory pattern is regular, symmetrical. GI: Abdomen is non-distended, obese. : No signs and/or symptoms were reported regarding the genitourinary system. 10:41 Reassessment: Patient appears in no apparent distress at this time. No changes from la1 previously documented assessment. Patient and/or family updated on plan of care and expected duration. Pain level reassessed. Patient is alert, oriented x 3, equal unlabored respirations, skin warm/dry/pink. Vital Signs: 06:31 BP 156 / 114; Pulse 114; Resp 18; Temp 97.2; Pulse Ox 99% ; Weight 136.08 kg; Height 5 ea ft. 5 in. (165.10 cm); Pain 10/10; 07:57 BP 134 / 77; Pulse 65; Resp 18; Pulse Ox 98% on R/A; la1 09:58 BP 121 / 69; Pulse 57; Resp 16; Pulse Ox 95% on R/A; la1 10:41 BP 119 / 71; Pulse 74; Resp 16; Temp 98.5; Pulse Ox 100% on R/A; la1 06:31 Body Mass Index 49.92 (136.08 kg, 165.10 cm) ea ED Course: 06:21 Patient arrived in ED. am2 06:22 Bridgett Dhaliwal is Private Physician. am2 06:31 Triage completed. ea 06:36 [facility] Her[facility]C [facility] kb 06:36 Tricia Green MD is Attending Physician. kb 06:36 Patient has correct armband on for positive identification. Bed in low position. Call ea light in reach. Side rails up X2. 06:36 Patient placed in an exam room, on a stretcher, on pulse oximetry. ea 07:01 Magdaleno Cifuentes, RN is Primary Nurse. la1 07:04 CT completed. Patient tolerated procedure well. Patient moved to CT via stretcher. sj Patient moved back from CT. 07:05 CT Stroke Brain w/o Contrast In Process Unspecified. EDMS 07:25 Grabiel Harper MD is Attending Physician. lisa 07:28 Inserted saline lock: 22 gauge in right forearm, using aseptic technique. Blood la1 collected. 07:59 EKG done, by ED staff, reviewed by Grabiel Harper MD. mh5 08:12 XRAY Chest (1 view) In Process Unspecified. EDMS 08:59 CT completed. Patient moved to CT via wheelchair. Patient moved back from CT. cw1 09:01 Head angio In Process Unspecified. EDMS 10:24 Freddie Dee MD is Referral Physician. lisa 10:42 No provider procedures requiring assistance completed. IV discontinued, intact, la1 bleeding controlled, No redness/swelling at site. Pressure dressing applied. Administered Medications: 07:41 Drug: NS 0.9% 1000 ml Route: IV; Rate: 125 ml/hr; Site: right forearm; la1 07:41 Drug: fentaNYL (PF) 50 mcg Route: IVP; Site: right forearm; la1 07:46 Follow up: Response: No adverse reaction; Pain is decreased la1 07:41 Drug: Zofran 4 mg Route: IVP; Site: right forearm; la1 07:46 Follow up: Response: No adverse reaction la1 08:10 Drug: Dilaudid 1 mg Route: IVP; Site: right forearm; la1 09:06 Follow up: Response: No adverse reaction; Pain is decreased la1 08:11 Not Given (Patient Refused): Zofran 4 mg IVP once; over 2 minutes la1 09:18 Drug: TORadol 30 mg Route: IVP; Site: right forearm; la1 09:56 Follow up: Response: No adverse reaction; Pain is decreased la1 09:24 Drug: Rocephin - (cefTRIAXone) 1 grams Route: IVPB; Infused Over: 30 mins; Site: right la1 forearm; Outcome: 10:24 Discharge ordered by MD. gonzalez 10:42 Patient left the ED. la1 Addendum: 05/11/2018 07:07 Addendum: Culture Results: Positive urine culture. No further action required. Bacteria i w sensitive to prescribed antibiotic. Signatures: Dispatcher [employer] EDMS Ama Herrera, BRENDA EWINGP-Grabiel Plummer MD MD cha Jones, Lindsey Glass, Leticia Gonzalez RN 1 Magdaleno Cifuentes RN RN la1 Ernestine Flannery [facility] Coretta Lockwood Elena, RN RN ea Corrections: (The following items were deleted from the chart) 05/07 07:58 07:57 BP 134 / 77; Pulse 16bpm; Resp 18bpm; Pulse Ox 98% RA; la1 la1
[2018-05-07 10:39] LABS: Barbiturates NEGATIVE (NEGATIVE); Benzodiazepines NEGATIVE (NEGATIVE); Cocaine NEGATIVE (NEGATIVE); METHAMPHETAM NEGATIVE (NEGATIVE); Methadone NEGATIVE (NEGATIVE); Opiates NEGATIVE (NEGATIVE); Phencyclidine NEGATIVE (NEGATIVE); THC Cannibis NEGATIVE (NEGATIVE)
[2018-05-07 10:59] VITALS: BP 119/71; TEMP 98.5; O2SAT 100
--- NOTE | 2018-05-07 13:18 | RAD REPORT ---
EXAM DESCRIPTION: RAD - Chest Single View - 05/07/2018 8:12 am CLINICAL HISTORY: COUGH Chest pain. COMPARISON: Chest Single View dated 12/07/2017; Chest Single View dated 10/26/2017; Chest Pa And Lat ( 2 Views) dated 10/13/2017; Chest Pa And Lat (2 Views) dated 07/22/2017 FINDINGS: Portable technique limits examination quality. Mild interstitial pulmonary edema. The heart is upper limit normal in size. No displaced fractures. IMPRESSION: Mild interstitial pulmonary edema.
--- NOTE | 2018-05-08 07:38 | EKG ---
Test Date: 2018-05-07 Test Time: 07:49:31 Lapel Padder Blindstitch: RESHMA MEASUREMENT RESULTS: Intervals: Rate: 66 SC: 106 QRSD: 90 QT: 430 QTc: 450 [place]: P: 21 SC: 106 QRS: 28 T: 29 INTERPRETIVE STATEMENTS: Sinus rhythm with short SC Cannot rule out Anterior infarct, age undetermined Abnormal ECG Compared to ECG 12/07/2017 17:54:24 Short SC interval now present Myocardial infarct finding now present Electronically Signed On 05-08-18 07:38:03 [employer] by Clinton Schulz
== END 2018-05-07 10:42 | disposition home or self-care (01) ==
LOC: ER 06:20
DX: N39.0 Urinary tract infection, site not specified (principal); I10 Essential (primary) hypertension; Z88.8 Allergy status to other drugs, medicaments and biological substances
CPT/HCPCS: 36415; 70450; 70496; 71045; 80048; 80076; 80307 ×8; 80320; 80329 ×2; 81003; 81025; 83735; 83880; 84484; 85025; 85610; 85730; 87077; 87086; 87088; 87186; 93005; 96374; 96375; 99284; J0696; J1170; J2405; J3010; J7030; Q9967

== ENCOUNTER 2018-06-12 23:30 | Emergency (ER) | payer OTHER ==
[2018-06-12] MEDS ORDERED: ETOMIDATE 20 MG/10 ML VIAL IV ONE (23:31)
[2018-06-12] MEDS ORDERED: SUCCINYLCHOLINE 20 MG/ML (10 ML) IV ONE (23:31)
--- OUTSIDE RECORDS SUMMARY | 2018-06-12 23:34 | XMS REPORT | Clinical Summary ---
:1975 Author Organization [facility] Address [address] [place] [address] Care Team Providers Name Role Phone Pcp, [...] (two) times daily with breakfast and dinner. hyoscyamine Take 0.125 mg 0 Discontinued (LEVSIN/SL) [...] Intensive Care Andrea Roberson Acute ischemic stroke (HCC); 12/09/2017 Dori, Left-sided weakness; MD Status post administration of tPA (rtPA) in a different facility within the last 24 hours prior to admission to current facility; Functional neurological symptom disorder with weakness or paralysis after 06/11/2017 Family History Medical History Relation Name Comments [...] CDT procedure are in the results section. after 06/11/2017 Results EKG-SCANNED (12/12/2017 2:21 PM CDT) Narrative Performed At RHYTHM STRIP - SCAN (12/12/2017 2:21 PM CDT) Narrative Performed At POC-Glucose meter (12/09/2017 8:19 AM CDT)Only the most recent of6 resultswithin the time period is included. POC-Glucose Meter 99Comment: TESTED AT 70 - 110 mg/dL [facility] [address] [address] Specimen Blood Performing Organization Address City/State/Zipcode Phone Number [facility] [address], [place] [phone] CENTER CBC with platelet count + automated diff (12/09/2017 4:35 AM CDT)Only the most recent of3 resultswithin the time period is included. WBC 6.7 3.5 - 10.5 K/L [facility] RBC 4.08 3.93 - 5.22 M/L [facility] Hemoglobin 11.4 11.2 - 15.7 GM/DL [facility] Hematocrit 37.6 34.1 - 44.9 % [facility] MCV 92.2 79.4 - 94.8 fL [facility] MCH 27.9 25.6 - 32.2 pg [facility] MCHC 30.3 (L) 32.2 - 35.5 GM/DL [facility] RDW 14.6 (H) 11.7 - 14.4 % [facility] Platelets 192 150 - 450 K/CU MM [facility] MPV 11.9 9.4 - 12.3 fL [facility] nRBC 0 0 - 0 /100 WBC [facility] % Neutros 69 % [facility] % Lymphs 25 % [facility] % Monos 5 % [facility] % Eos 2 % [facility] % Baso 0 % [facility] # Neutros 4.59 1.56 - 6.13 K/L [facility] # Lymphs 1.65 1.18 - 3.74 K/L [facility] # Monos 0.30 0.24 - 0.36 K/L [facility] # Eos 0.11 0.04 - 0.36 K/L [facility] # Baso 0.01 0.01 - 0.08 K/L [facility] Immature Granulocytes-Relative 0 0 - 1 % [facility] Specimen Blood Performing Organization Address City/[facility]/Zipcode Phone Number [facility] [address] [place] [address] [place] Basic Metabolic Panel (12/09/2017 4:35 AM CDT)Only the most recent of2 resultswithin the time period is included. Sodium 140 136 - 145 meq/L [facility] Potassium 3.9 3.5 - 5.1 meq/L [facility] Chloride 105 98 - 107 meq/L [facility] CO2 28 22 - 29 meq/L [facility] BUN 11 7 - 21 mg/dL [facility] Creatinine 0.62 0.57 - 1.25 mg/dL [facility] Glucose 107 (H) 70 - 105 mg/dL [facility] Calcium 8.8 8.4 - 10.2 mg/dL [facility] EGFR 106Comment: ESTIMATED GFR IS mL/min/1.73 sq m [facility] NOT ACCURATE CREATININE [facility] CLEARANCE IN PREDICTING GLOMERULAR FILTRATION RATE. ESTIMATED GFR IS NOT APPLICABLE FOR DIALYSIS PATIENTS. Specimen Blood Performing Organization Address City/[facility]/Zipcode Phone Number [facility] [address] [place] [address] [phone] [place] MR brain without IV contrast (12/08/2017 8:00 PM CDT) Narrative Performed At FINAL REPORT [email or web address] MRI Brain without contrast Clinical History: Stroke [...] MD Report Verified Date/Time:12/08/2017 20:02:46 Reading Location: [facility] Radiology Reading Room Procedure Note Interface, [...] Report Verified Date/Time: 12/08/2017 20:02:46 Reading Location: [facility] Radiology Reading Room Performing Organization Address City/State/Zipcode Phone Number [email or web address] MRA neck without IV contrast (12/08/2017 8:00 PM CDT) Narrative Performed At FINAL REPORT [email or web address] MRA Head CLINICAL HISTORY: Stroke TECHNIQUE: MRA of the head utilizing 3-D ikju-el-gnxhgq technique, with 3-D reconstructions. COMPARISON: None FINDINGS: There is no evidence of intracranial aneurysm, focal stenosis, or major branch vessel occlusion. There is a origin of the right posterior cerebral artery. IMPRESSION: No evidence for a major [place] proximal branch vessel occlusion. MRA Neck CLINICAL HISTORY: Stroke TECHNIQUE: MRA of the neck utilizing 2-D and 3-D qqqz-ld-skviup technique, with 3-D reconstructions. COMPARISON: None FINDINGS: The carotid arteries in the neck are patent including their bifurcations. There is antegrade flow in the vertebral arteries in the neck. IMPRESSION: No evidence of hemodynamically significant stenosis in the cervical carotid or vertebral arteries by NASCET criteria. Signed: Madeleine Mendoza MD Report Verified Date/Time:12/08/2017 20:13:50 Reading Location: [facility] Radiology Reading Room Procedure Note Interface, External Ris In - 12/08/2017 8:15 PM CDT FINAL REPORT MRA Head CLINICAL HISTORY: Stroke TECHNIQUE: MRA of the head utilizing 3-D mrcu-ht-empghr technique, with 3-D reconstructions. COMPARISON: None FINDINGS: There is no evidence of intracranial aneurysm, focal stenosis, or major branch vessel occlusion. There is a origin of the right posterior cerebral artery. IMPRESSION: No evidence for a major [place] proximal branch vessel occlusion. MRA Neck CLINICAL HISTORY: Stroke TECHNIQUE: MRA of the neck utilizing 2-D and 3-D lfkn-rj-futamr technique, with 3-D reconstructions. COMPARISON: None FINDINGS: The carotid arteries in the neck are patent including their bifurcations. There is antegrade flow in the vertebral arteries in the neck. IMPRESSION: No evidence of hemodynamically significant stenosis in the cervical carotid or vertebral arteries by NASCET criteria. Signed: Madeleine Mendoza MD Report Verified Date/Time: 12/08/2017 20:13:50 Reading Location: [facility] Radiology Reading Room Performing Organization Address City/State/Zipcode Phone Number [email or web address] MRA head without IV contrast (12/08/2017 8:00 PM CDT) Narrative Performed At FINAL REPORT [email or web address] MRA Head CLINICAL HISTORY: Stroke TECHNIQUE: MRA of the head utilizing 3-D wihe-ng-bnseib technique, with 3-D reconstructions. COMPARISON: None FINDINGS: There is no evidence of intracranial aneurysm, focal stenosis, or major branch vessel occlusion. There is a origin of the right posterior cerebral artery. IMPRESSION: No evidence for a major [place] proximal branch vessel occlusion. MRA Neck CLINICAL HISTORY: Stroke TECHNIQUE: MRA of the neck utilizing 2-D and 3-D evkp-rz-tlkgkl technique, with 3-D reconstructions. COMPARISON: None FINDINGS: The carotid arteries in the neck are patent including their bifurcations. There is antegrade flow in the vertebral arteries in the neck. IMPRESSION: No evidence of hemodynamically significant stenosis in the cervical carotid or vertebral arteries by NASCET criteria. Signed: Madeleine Mendoza MD Report Verified Date/Time:12/08/2017 20:13:50 Reading Location: [facility] Reading Room Procedure Note Interface, External Ris In - 12/08/2017 8:15 PM CDT FINAL REPORT MRA Head CLINICAL HISTORY: Stroke TECHNIQUE: MRA of the head utilizing 3-D hwnq-ly-tlzmdv technique, with 3-D reconstructions. COMPARISON: None FINDINGS: There is no evidence of intracranial aneurysm, focal stenosis, or major branch vessel occlusion. There is a origin of the right posterior cerebral artery. IMPRESSION: No evidence for a major [place] proximal branch vessel occlusion. MRA Neck CLINICAL HISTORY: Stroke TECHNIQUE: MRA of the neck utilizing 2-D and 3-D mtbo-bb-lpkiiy technique, with 3-D reconstructions. COMPARISON: None FINDINGS: The carotid arteries in the neck are patent including their bifurcations. There is antegrade flow in the vertebral arteries in the neck. IMPRESSION: No evidence of hemodynamically significant stenosis in the cervical carotid or vertebral arteries by NASCET criteria. Signed: Madeleine Mendoza MD Report Verified Date/Time: 12/08/2017 20:13:50 Reading Location: [facility] Radiology Reading Room Performing Organization Address City/State/Zipcode Phone Number [facility] ECHOCARDIOGRAM REPORT - SCAN (12/08/2017 6:50 PM CDT) Narrative Performed At 2D Echo W/Doppler(CW/PW/Color) with saline (12/08/2017 11:58 AM CDT) Ejection Fraction [facility] [employer] [facility] Narrative Performed At Transthoracic Echocardiography Report (TTE) [facility] S[facility]ly [facility] [employer] [facility] Demographics Patient NameAGUILAR, Date of Study12/08/2017 GIOVANNY Gender Female Visit [id number] Race Unknown [id number] Number Date of 1975 Referring PhysicianAndrea Mendez Age 42 year(s) SonographerOsclovely Wilson [facility] Corporate Development Associate Jeremi Martel MD Physician Procedure Type of [...] Study 12/08/2017 GIOVANNY Gender Female Visit Number [id number] Race Unknown Room Number 7401 Number Date of 1975 Referring Physician Andrea Mendez Age 42 year(s) Lap Checker Reji Wilson [facility] Corporate Development Associate Jeremi Rodriguez Interpreting Frederic Martel MD Physician [...] LVOT Area: 3.46 cm^2 Performing Organization Address City/State/[facility] Phone Number [facility] [employer] [facility] Carotid doppler bilateral (12/08/2017 11:10 AM CDT) Ejection Fraction [facility] [employer] [facility] Impressions Performed At Right Impression [facility] [employer] [facility] 1. The internal, common and external [...] Performed At LAB - Carotid Duplex Study [facility] [employer] [facility] Demographics Patient Name Ty HARRISON of Study12/08/2017 [id number] Age42 Visit Number [id number] Gender Female Accession Number [id number] Date of Birth1975 [facility] Room [id number] Physician Michael Jeff RVT PhysicianMD, SCOTT Procedure Type of Study: Cerebral: Carotid, [...] of Study 12/08/2017 Age 42 Visit Number [id number] Gender Female Accession Number [id number] Date of 1975 Referring Andrea Roberson Room Number 7401 Physician Lap Checker Fernando Jeff, T Physician , RPVI Procedure Type of [...] Additional Measurements:ICAPSV/CCAPSV 1.01.ICAEDV/CCAEDV 0.71. Performing Organization Address City/[facility] Centercode Phone Number [facility] CPACS Troponin I (12/08/2017 9:01 AM CDT)Only the most recent of2 resultswithin the time period is included. Troponin I <0.01 0.00 - 0.03 ng/mL [facility] Specimen Blood Narrative Performed At [facility] Troponin I (TnI) levels must [...] disease, and persistent tachyarrhythmia. Performing Organization Address [facility] Centercode Phone Number [address] [address] [place] Urine culture (12/08/2017 3:39 AM CDT) Result No growth [facility] Specimen Urine - Urine, Straight Catheter Performing Organization Address [facility] Phone Number [address] [address] [phone] [place] Rapid drug screen, urine (12/08/2017 3:38 AM CDT) Barbiturate Screen Negative Negative [facility] Benzodiazepine Screen Negative Negative [facility] Cocaine (Metab.) Screen Negative Negative [facility] Methadone Screen Negative Negative [facility] Opiate Screen Negative Negative [facility] Cannabinoid Screen Negative Negative [facility] Amph/Methamph Screen Negative Negative [facility] Phencyclidine Screen Negative Negative [facility] Oxycodone Screen Negative Negative [facility] Specimen Urine - Urine, Sterile Collection Narrative Performed At [facility] DRUGCUTOFF CONC. Cocaine 300 ng/mL Fdjjhnincnj21 ng/mL Ardrmoahocahdf771 ng/mL Barbiturate 200 ng/mL Uopgcwbrcygas83 ng/mL Itqsem926 ng/mL Methadone 300 ng/mL Amphetamine/ 1000 ng/mL Methamphetamine Oxycodone 300 ng/mL This assay provides an unconfirmed qualitative test result for the clinical management of patients in emergency situations. Chain of custody not maintained. Some pauc-xtm-hctzivv medications, as well as adulterants, may cause inaccurate results. Clinical correlation should be applied. A more comprehensive drug screen or confirmation of a detected drug may be performed upon request. Performing Organization Address City/State/Zipcode Phone Number [facility] [address] [place] [address] [phone] CENTER Urinalysis w/ Microscopic (12/08/2017 3:38 AM CDT) Color, UA Yellow [facility] Clarity, UA Clear [facility] Specific [place], UA 1.039 (H) 1.001 - 1.035 [facility] pH, UA 5.5 5.0 - 8.0 [facility] Protein, UA 10 mg/dL (A) Negative [facility] Glucose, UA Negative Negative [facility] Ketones, UA Negative Negative [facility] Bilirubin, UA Negative Negative [facility] Blood, UA Small (A) Negative [facility] Nitrite, UA Negative Negative [facility] Leukocytes, UA Negative Negative [facility] Urobilinogen, UA 0.2 0.2 - 1.0 mg/dL [facility] RBC, UA 1 /HPF [facility] WBC, UA <1 /HPF [facility] Mucus Occasional [facility] Squam Epithel, UA <1 /HPF [facility] Crystals, Urine Rare [facility] Specimen Source Urine, Sterile Collection [facility] Specimen Urine - Urine, Sterile Collection Performing Organization Address [facility] Centercode Phone Number [address] [address] [place] TSH/Free T4 If Indicated (12/08/2017 3:37 AM CDT) TSH 0.66 0.35 - 4.94 uIU/mL [facility] Specimen Blood - Arm, Left Performing Organization Address [facility] Phone Number [address] [address] [place] Hemoglobin A1c - Fasting (12/08/2017 3:37 AM CDT) Hemoglobin A1C 6.6 (H) 4.3 - 6.1 % [facility] Specimen Blood - Arm, Left Narrative Performed At Fasting [facility] Performing Organization Address [facility] Phone Number [address] [address] [place] Fasting lipid panel (12/08/2017 3:37 AM CDT) Triglycerides 83Comment: Specimen slightly mg/dL [facility] Cholesterol 140Comment: Specimen slightly mg/dL [facility] HDL 38 mg/dL [facility] LDL Calculated 85 mg/dL [facility] Specimen Blood - Arm, Left Narrative Performed At [facility] Triglyceride Reference Range: Low Risk <150 [id number] High Risk 200-499 Very High Risk>=500 Cholesterol Reference Range: Low Risk <200 [id number] High Risk>240 HDL Cholesterol Reference Range: Low Risk >=60 High Risk <40 LDL Cholesterol Reference Range: Optimal<100 Near Sczoyry202-909 Lpywrztyoa659-310 Tlft133-284 Very High >=190 Fasting Performing Organization Address [facility] Phone Number [address] [address] [phone] [place] Vitamin B12 and Folate (12/07/2017 11:19 PM CDT) Vitamin B12 688 213 - 816 pg/mL [facility] Folate 12.1 >=7.0 ng/mL [facility] Specimen Blood - Arm, Left Performing Organization Address [facility] Phone Number [address] [address] [phone] [place] Prothrombin time/INR (12/07/2017 11:19 PM CDT) Protime 15.8 (H) 11.7 - 14.7 seconds [facility] INR 1.3 <=5.9 [facility] Specimen Blood - Arm, Left Narrative Performed At [facility] RECOMMENDED COUMADIN/WARFARIN INR THERAPY RANGES STANDARD DOSE: 2.0 - 3.0 Includes: PROPHYLAXIS for venous thrombosis, systemic embolization; TREATMENT for venous thrombosis and/or pulmonary embolus. HIGH RISK: Target INR is 2.5-3.5 for patients with mechanical heart valves. Performing Organization Address [facility] Phone Number [address] [address] [place] Hepatic function panel (12/07/2017 11:19 PM CDT) Protein, Total 6.8 6.0 - 8.3 gm/dL [facility] Albumin 3.7 3.5 - 5.0 g/dL [facility] Total Bilirubin 0.4 0.2 - 1.2 mg/dL [facility] Bilirubin, Direct 0.2 0.1 - 0.5 mg/dL [facility] Alkaline Phosphatase 75 40 - 150 U/L [facility] AST 30 5 - 34 U/L [facility] ALT 17 6 - 55 U/L [facility] Specimen Blood - Arm, Left Performing Organization Address City/State/Zipcode Phone Number [facility] [address] [place] [address] [phone] CENTER XR chest 1 view portable / bedside (12/07/2017 9:45 PM CDT) Narrative Performed At FINAL REPORT GE RIS Clinical History: Stroke workup Comparison Study: None Findings:The cardiac silhouette is enlarged. The lungs are within normal limits.The pleural spaces are clear.No significant bony or soft tissue abnormalities are seen. Impression: Cardiomegaly. Signed: Wellington Goodwin MD Report Verified Date/Time:12/07/2017 21:51:29 Reading Location: [facility] C0[facility] Consult Reading Room Procedure Note Interface, External Ris In - 12/07/2017 9:53 PM CDT FINAL REPORT Clinical History: Stroke workup Comparison Study: None Findings: The cardiac silhouette is enlarged. The lungs are within normal limits. The pleural spaces are clear. No significant bony or soft tissue abnormalities are seen. Impression: Cardiomegaly. Signed: Wellington Goodwin MD Report Verified Date/Time: 12/07/2017 21:51:29 Reading Location: [facility] [id number] Consult Reading Room Performing Organization Address City/State/Zipcode Phone Number GE RIS after 06/11/2017 Insurance Payer Benefit Plan / Group Subscriber ID Type Phone Address CARE IMPROVEMENT MEDICARE CARE IMPROVEMENT PLUS xxxxxxxxx D CARE MEDICAID MEDICAID [facility] xxxxxxxxx Medicaid ([place]) [place] [address] Advance Directives For more information, please contact:[address] [phone] Code Status Date Activated Date Inactivated Comments Full Code 05/02/2017 9:56 PM 05/04/2017 2:47 PM This code status was determined by: Patient Full Code 04/06/2017 11:35 PM 04/15/2017 8:31 PM This code status was determined by: Patient
--- OUTSIDE RECORDS SUMMARY | 2018-06-12 23:35 | XMS REPORT ---
:1975 [facility] Address [address] [place] [address] Care Team Providers Name Role Phone JONATAN, [...] Value Reference Range Comments CULTURE (BEAKER) (test qjwj=7016) No growth POCT-GLUCOSE [id number] 08:21:00 Test Item Value Reference Range Comments POC-GLUCOSE METER (BEAKER) 99 mg/dL 70-110 TESTED AT [address] (test qron=3601) [place] [id number] POCT-GLUCOSE [id number] 06:14:00 Test Item Value Reference Range Comments POC-GLUCOSE METER (BEAKER) 105 mg/dL 70-110 TESTED AT [address] (test cxka=8921) [place] [id number] BASIC METABOLIC [id number] 05:56:00 Test Item Value Reference Range Comments SODIUM (BEAKER) (test 140 meq/L 136-145 ciax=728) POTASSIUM (BEAKER) (test 3.9 meq/L 3.5-5.1 zxei=186) CHLORIDE (BEAKER) (test 105 meq/L 98-107 hzve=724) CO2 (BEAKER) (test 28 meq/L 22-29 bdfo=295) BLOOD UREA NITROGEN 11 mg/dL 7-21 (BEAKER) (test ucpt=604) CREATININE (BEAKER) (test 0.62 mg/dL 0.57-1.25 ufoi=068) GLUCOSE RANDOM (BEAKER) 107 mg/dL 70-105 (test empx=106) CALCIUM (BEAKER) (test 8.8 mg/dL 8.4-10.2 dmjf=249) EGFR (BEAKER) (test 106 mL/min/1.73 sq m ESTIMATED GFR IS NOT fyxr=0654) ACCURATE CREATININE CLEARANCE IN PREDICTING GLOMERULAR FILTRATION RATE. ESTIMATED GFR IS NOT APPLICABLE FOR DIALYSIS PATIENTS. CBC W/PLT COUNT & AUTO [id number] 05:15:00 Test Item Value Reference Range Comments WHITE BLOOD CELL COUNT (BEAKER) (test dmde=490) 6.7 K/ L 3.5-10.5 RED BLOOD CELL COUNT (BEAKER) (test gwaz=645) 4.08 M/ L 3.93-5.22 HEMOGLOBIN (BEAKER) (test lrfp=772) 11.4 GM/DL 11.2-15.7 HEMATOCRIT (BEAKER) (test yftm=141) 37.6 % 34.1-44.9 MEAN CORPUSCULAR VOLUME (BEAKER) (test pyfz=131) 92.2 fL 79.4-94.8 MEAN CORPUSCULAR HEMOGLOBIN (BEAKER) (test 27.9 pg 25.6-32.2 ptno=560) MEAN CORPUSCULAR HEMOGLOBIN CONC (BEAKER) (test 30.3 GM/DL 32.2-35.5 kxfx=994) RED CELL DISTRIBUTION WIDTH (BEAKER) (test 14.6 % 11.7-14.4 obvi=258) PLATELET COUNT (BEAKER) (test ccym=351) 192 K/CU MM 150-450 MEAN PLATELET VOLUME (BEAKER) (test vnnl=590) 11.9 fL 9.4-12.3 NUCLEATED RED BLOOD CELLS (BEAKER) (test 0 /100 WBC 0-0 opvr=450) NEUTROPHILS RELATIVE PERCENT (BEAKER) (test 69 % fraa=121) LYMPHOCYTES RELATIVE PERCENT (BEAKER) (test 25 % rxkl=005) MONOCYTES RELATIVE PERCENT (BEAKER) (test 5 % ebhy=295) EOSINOPHILS RELATIVE PERCENT (BEAKER) (test 2 % dhjf=173) BASOPHILS RELATIVE PERCENT (BEAKER) (test 0 % dybw=379) NEUTROPHILS ABSOLUTE COUNT (BEAKER) (test 4.59 K/ L 1.56-6.13 wcwq=850) LYMPHOCYTES ABSOLUTE COUNT (BEAKER) (test 1.65 K/ L 1.18-3.74 aavj=181) MONOCYTES ABSOLUTE COUNT (BEAKER) (test 0.30 K/ L 0.24-0.36 cyph=396) EOSINOPHILS ABSOLUTE COUNT (BEAKER) (test 0.11 K/ L 0.04-0.36 njio=144) BASOPHILS ABSOLUTE COUNT (BEAKER) (test 0.01 K/ L 0.01-0.08 zoua=968) IMMATURE GRANULOCYTES-RELATIVE PERCENT (BEAKER) 0 % 0-1 (test fvcw=5697) POCT-GLUCOSE [id number] 00:23:00 Test Item Value Reference Range Comments POC-GLUCOSE METER (BEAKER) 111 mg/dL 70-110 TESTED AT [facility] [address] [place] [address] (test rtkk=2877) [facility] [address] MR, MRA, BRAIN, WITHOUT [id number] 20:13:00Reason for exam:-> Ischemic Stroke EvaluationFINAL REPORT MRA Head CLINICAL HISTORY: Stroke TECHNIQUE: MRA of the head utilizing 3-D qlmu-lc-qzdhtz technique, with 3-D reconstructions. COMPARISON: None FINDINGS: There is noevidence of intracranial aneurysm, focal stenosis, or major branch vessel occlusion. There is a origin of the right posterior cerebral artery. IMPRESSION: No evidence for a major [place] of Willisproximal branch vessel occlusion. MRA Neck CLINICAL HISTORY: Stroke TECHNIQUE: MRA of the neck utilizing 2-D and 3-D yiwz-zf-byhioi technique, with 3-D reconstructions. COMPARISON: None FINDINGS: Thecarotid arteries in the neck are patent including their bifurcations. There is antegrade flow in the vertebral arteries in the neck. IMPRESSION: No evidence of hemodynamically significant stenosis in the cervical carotid or vertebral arteries by NASCET criteria. Signed: Madeleine Mendoza MDReport Verified Date/Time: 12/08/2017 20:13:50 Reading Location: [facility] Reading Room MR, MRA, NECK, WITHOUT IV [id number] 20:13: 00Reason for exam:->Ischemic Stroke EvaluationFINAL REPORT MRA Head CLINICAL HISTORY: Stroke TECHNIQUE: MRA of the head utilizing 3-D bute-gk-uimxyl technique, with 3-D reconstructions. COMPARISON: None FINDINGS: There is noevidence of intracranial aneurysm, focal stenosis, or major branch vessel occlusion. There is a origin of the right posterior cerebral artery. IMPRESSION: No evidence for a major [place] of Willisproximal branch vessel occlusion. MRA Neck CLINICAL HISTORY: Stroke TECHNIQUE: MRA of the neck utilizing 2-D and 3-D llcb-jy-tnccze technique, with 3-D reconstructions. COMPARISON: None FINDINGS: Thecarotid arteries in the neck are patent including their bifurcations. There is antegrade flow in the vertebral arteries in the neck. IMPRESSION: No evidence of hemodynamically significant stenosis in the cervical carotid or vertebral arteries by NASCET criteria. Signed: Madeleine Mendoza Verified Date/Time: 12/08/2017 20:13: 50 Reading Location: [facility] Reading Room MR, BRAIN, WITHOUT [id number] 20:02:00Reason for exam:->StrokeWhat is the patient's sedation [...] Verified Date/ Time: 12/08/2017 20:02:46 Reading Location: [facility] Reading Room 08:02 PMPOCT-GLUCOSE [id number] 15:23:00 Test Item Value Reference Range Comments POC-GLUCOSE METER (MILAGROS) 106 mg/dL 70-110 TESTED AT [address] (test gjav=9966) [facility] [address] HEMOGLOBIN [id number] 11:57:00 Test Item Value Reference Range Comments HEMOGLOBIN A1C (BEAKER) (test lstr=674) 6.6 % 4.3-6.1 FastingTROPONIN [id number] 09:50:00 Test Item Value Reference Range Comments TROPONIN I (BEAKER) (test foiw=160) < ng/mL 0.00-0.03 Troponin I (TnI) levels [...] acidosis, acute neurological disease, and persistent tachyarrhythmia.POCT-GLUCOSE [id number] 06:23:00 Test Item Value Reference Range Comments POC-GLUCOSE METER (BEAKER) 110 mg/dL 70-110 TESTED AT [address] (test pqxe=8693) [place] [id number] POCT-GLUCOSE [id number] 06:15:00 Test Item Value Reference Range Comments POC-GLUCOSE METER (BEAKER) 149 mg/dL 70-110 TESTED AT [address] (test bzhu=8961) [facility] [address] VITAMIN B12 AND [id number] 05:50:00 Test Item Value Reference Range Comments VITAMIN B12 (BEAKER) (test xyij=775) 688 pg/mL 213-816 FOLATE (BEAKER) (test ykou=958) 12.1 ng/mL >=7.0 TSH/FREE T4 IF [id number] 05:29:00 Test Item Value Reference Range Comments THYROID STIMULATING HORMONE (BEAKER) (test 0.66 uIU/mL 0.35-4.94 sdpf=628) BASIC METABOLIC [id number] 05:11:00 Test Item Value Reference Range Comments SODIUM (BEAKER) (test 140 meq/L 136-145 euib=314) POTASSIUM (BEAKER) (test 4.3 meq/L 3.5-5.1 Specimen slightly jvna=396) hemolyzed CHLORIDE (BEAKER) (test 105 meq/L 98-107 avin=157) CO2 (BEAKER) (test 27 meq/L 22-29 apxx=333) BLOOD UREA NITROGEN 8 mg/dL 7-21 (BEAKER) (test kupw=068) CREATININE (BEAKER) (test 0.67 mg/dL 0.57-1.25 Specimen slightly bwdb=131) hemolyzed GLUCOSE RANDOM (BEAKER) 136 mg/dL 70-105 (test nzrf=621) CALCIUM (BEAKER) (test 8.7 mg/dL 8.4-10.2 lxip=712) EGFR (BEAKER) (test 97 mL/min/1.73 sq m ESTIMATED GFR IS NOT fche=0738) ACCURATE CREATININE CLEARANCE IN PREDICTING GLOMERULAR FILTRATION RATE. ESTIMATED GFR IS NOT APPLICABLE FOR DIALYSIS PATIENTS. FastingLIPID [id number] 05:11:00 Test Item Value Reference Range Comments TRIGLYCERIDES (BEAKER) (test 83 mg/dL Specimen slightly hemolyzed wnmt=370) CHOLESTEROL (BEAKER) (test 140 mg/dL Specimen slightly hemolyzed vyvt=347) HDL CHOLESTEROL (BEAKER) (test 38 mg/dL cxic=410) LDL CHOLESTEROL CALCULATED 85 mg/dL (BEAKER) (test cpyf=393) Triglyceride Reference Range: Low Risk <150 Borderline 150- 199 High Risk 200-499 Very High Risk >=500Cholesterol Reference Range: Low Risk <200 Borderline 200-239 High Risk > 240HDL Cholesterol Reference Range: Low Risk >=60 High Risk <40LDL Cholesterol Reference Range: Optimal <100 Near Optimal 100-129 Borderline 130-159 High 160-189 Very High >=190 FastingRAPID DRUG SCREEN, [id number] 04:34:00 Test Item Value Reference Range Comments BARBITURATE URINE (BEAKER) (test qqbv=725) Negative Negative BENZODIAZEPINE SCREEN URINE (BEAKER) (test Negative Negative htkw=261) COCAINE (METAB.) SCREEN (BEAKER) (test mvep=0797) Negative Negative METHADONE SCREEN (BEAKER) (test oqhw=0749) Negative Negative OPIATE SCREEN URINE (BEAKER) (test lmtf=033) Negative Negative CANNABINOID SCREEN URINE (BEAKER) (test dvig=845) Negative Negative AMPH/METHAMPH SCREEN (BEAKER) (test cila=7269) Negative Negative PHENCYCLIDINE SCREEN URINE (BEAKER) (test spgv=840) Negative Negative OXYCODONE SCREEN URINE (BEAKER) (test izuz=6726) Negative Negative DRUG CUTOFF CONC.Cocaine 300 ng/mL Cannabinoid 50 ng/mL Benzodiazepine 200 ng/mLBarbiturate 200 ng/ mLPhencyclidine 25 ng/mLOpiate 300 ng/mLMethadone 300 ng/mLAmphetamine/ 1000 ng/mL MethamphetamineOxycodone 300 ng/mLThis assay provides an unconfirmed qualitative test result for the clinical management of patients in emergency situations. Chain of custody not maintained. Some qsro-fis-jarvqop medications, as well as adulterants, may cause inaccurate results. Clinical correlation should be applied. A more comprehensive drug screen or confirmation of a detected drug may be performed upon request.URINALYSIS W/ [id number] 04:09:00 Test Item Value Reference Range Comments COLOR (BEAKER) (test spld=987) Yellow CLARITY (BEAKER) (test eubt=318) Clear SPECIFIC GRAVITY UA (BEAKER) (test 1.039 1.001-1.035 qesa=210) PH UA (BEAKER) (test ebbk=016) 5.5 5.0-8.0 PROTEIN UA (BEAKER) (test 10 mg/dL Negative bqbe=513) GLUCOSE UA (BEAKER) (test Negative Negative kpub=874) KETONES UA (BEAKER) (test Negative Negative hyfm=190) BILIRUBIN UA (BEAKER) (test Negative Negative cevf=154) BLOOD UA (BEAKER) (test ibbp=888) Small Negative NITRITE UA (BEAKER) (test Negative Negative vifb=039) LEUKOCYTE ESTERASE UA (BEAKER) Negative Negative (test hnkt=993) UROBILINOGEN UA (BEAKER) (test 0.2 mg/dL 0.2-1.0 zuke=596) RBC UA (BEAKER) (test ktgi=740) 1 /HPF WBC UA (BEAKER) (test mmcm=378) < /HPF MUCUS (BEAKER) (test rzjg=0579) Occasional SQUAMOUS EPITHELIAL (BEAKER) (test < /HPF azkc=140) CRYSTALS, URINE (BEAKER) (test Rare hszp=0962) SOURCE(BEAKER) (test jsgs=6145) Urine, Sterile Collection CBC W/PLT COUNT & AUTO [id number] 03:54:00 Test Item Value Reference Range Comments WHITE BLOOD CELL COUNT (BEAKER) (test vzlt=751) 7.2 K/ L 3.5-10.5 RED BLOOD CELL COUNT (BEAKER) (test okjx=647) 4.10 M/ L 3.93-5.22 HEMOGLOBIN (BEAKER) (test hepm=317) 11.6 GM/DL 11.2-15.7 HEMATOCRIT (BEAKER) (test nlhq=821) 37.5 % 34.1-44.9 MEAN CORPUSCULAR VOLUME (BEAKER) (test fwdy=103) 91.5 fL 79.4-94.8 MEAN CORPUSCULAR HEMOGLOBIN (BEAKER) (test 28.3 pg 25.6-32.2 eknc=717) MEAN CORPUSCULAR HEMOGLOBIN CONC (BEAKER) (test 30.9 GM/DL 32.2-35.5 nnho=051) RED CELL DISTRIBUTION WIDTH (BEAKER) (test 14.6 % 11.7-14.4 xwgp=999) PLATELET COUNT (BEAKER) (test rqut=968) 194 K/CU MM 150-450 MEAN PLATELET VOLUME (BEAKER) (test opvg=478) 11.7 fL 9.4-12.3 NUCLEATED RED BLOOD CELLS (BEAKER) (test 0 /100 WBC 0-0 iykr=534) NEUTROPHILS RELATIVE PERCENT (BEAKER) (test 73 % ikte=069) LYMPHOCYTES RELATIVE PERCENT (BEAKER) (test 21 % yuug=765) MONOCYTES RELATIVE PERCENT (BEAKER) (test 4 % lyiv=083) EOSINOPHILS RELATIVE PERCENT (BEAKER) (test 2 % bkgc=222) BASOPHILS RELATIVE PERCENT (BEAKER) (test 0 % ilfx=263) NEUTROPHILS ABSOLUTE COUNT (BEAKER) (test 5.22 K/ L 1.56-6.13 seho=740) LYMPHOCYTES ABSOLUTE COUNT (BEAKER) (test 1.47 K/ L 1.18-3.74 nblw=678) MONOCYTES ABSOLUTE COUNT (BEAKER) (test 0.31 K/ L 0.24-0.36 exqq=154) EOSINOPHILS ABSOLUTE COUNT (BEAKER) (test 0.13 K/ L 0.04-0.36 plvd=533) BASOPHILS ABSOLUTE COUNT (BEAKER) (test 0.01 K/ L 0.01-0.08 qbwo=428) IMMATURE GRANULOCYTES-RELATIVE PERCENT (BEAKER) 0 % 0-1 (test ljia=2528) TROPONIN [id number] 23:56:00 Test Item Value Reference Range Comments TROPONIN I (BEAKER) (test dpon=991) < ng/mL 0.00-0.03 Troponin I (TnI) levels [...] acute neurological disease, and persistent tachyarrhythmia.HEPATIC FUNCTION [id number] 23:49: 00 Test Item Value Reference Range Comments TOTAL PROTEIN (BEAKER) (test bkot=289) 6.8 gm/dL 6.0-8.3 ALBUMIN (BEAKER) (test loek=6979) 3.7 g/dL 3.5-5.0 BILIRUBIN TOTAL (BEAKER) (test vtyr=960) 0.4 mg/dL 0.2-1.2 BILIRUBIN DIRECT (BEAKER) (test obir=977) 0.2 mg/dL 0.1-0.5 ALKALINE PHOSPHATASE (BEAKER) (test qser=871) 75 U/L 40-150 AST (SGOT) (BEAKER) (test ummi=672) 30 U/L 5-34 ALT (SGPT) (BEAKER) (test mamt=383) 17 U/L 6-55 PROTHROMBIN [id number] 23:40:00 Test Item Value Reference Range Comments PROTIME (BEAKER) (test time=911) 15.8 seconds 11.7-14.7 INR (BEAKER) (test jlpq=412) 1.3 <=5.9 RECOMMENDED COUMADIN/WARFARIN INR THERAPY RANGESSTANDARD DOSE: 2.0 - 3.0 Includes: PROPHYLAXIS forvenous thrombosis, systemic embolization; TREATMENT for venous thrombosis and/or pulmonary embolus.HIGH RISK: Target INR is 2.5-3.5 for patients with mechanical heart valves.CBC W/PLT COUNT & AUTO [id number] 23:27:00 Test Item Value Reference Range Comments WHITE BLOOD CELL COUNT (BEAKER) (test sids=677) 8.2 K/ L 3.5-10.5 RED BLOOD CELL COUNT (BEAKER) (test sogr=533) 4.18 M/ L 3.93-5.22 HEMOGLOBIN (BEAKER) (test gohi=014) 11.9 GM/DL 11.2-15.7 HEMATOCRIT (BEAKER) (test plak=019) 38.2 % 34.1-44.9 MEAN CORPUSCULAR VOLUME (BEAKER) (test zcln=271) 91.4 fL 79.4-94.8 MEAN CORPUSCULAR HEMOGLOBIN (BEAKER) (test 28.5 pg 25.6-32.2 sylq=843) MEAN CORPUSCULAR HEMOGLOBIN CONC (BEAKER) (test 31.2 GM/DL 32.2-35.5 npna=292) RED CELL DISTRIBUTION WIDTH (BEAKER) (test 14.6 % 11.7-14.4 aqtc=730) PLATELET COUNT (BEAKER) (test cgbi=890) 199 K/CU MM 150-450 MEAN PLATELET VOLUME (BEAKER) (test pmzl=146) 11.4 fL 9.4-12.3 NUCLEATED RED BLOOD CELLS (BEAKER) (test 0 /100 WBC 0-0 fyqr=265) NEUTROPHILS RELATIVE PERCENT (BEAKER) (test 74 % ayzt=860) LYMPHOCYTES RELATIVE PERCENT (BEAKER) (test 20 % yqdh=643) MONOCYTES RELATIVE PERCENT (BEAKER) (test 4 % jdqy=530) EOSINOPHILS RELATIVE PERCENT (BEAKER) (test 2 % qfyq=297) BASOPHILS RELATIVE PERCENT (BEAKER) (test 0 % lgvg=736) NEUTROPHILS ABSOLUTE COUNT (BEAKER) (test 6.05 K/ L 1.56-6.13 ceag=203) LYMPHOCYTES ABSOLUTE COUNT (BEAKER) (test 1.64 K/ L 1.18-3.74 rpzf=386) MONOCYTES ABSOLUTE COUNT (BEAKER) (test 0.33 K/ L 0.24-0.36 nzur=220) EOSINOPHILS ABSOLUTE COUNT (BEAKER) (test 0.12 K/ L 0.04-0.36 crrj=627) BASOPHILS ABSOLUTE COUNT (BEAKER) (test 0.01 K/ L 0.01-0.08 ohkp=701) IMMATURE GRANULOCYTES-RELATIVE PERCENT (BEAKER) 1 % 0-1 (test jvrq=2946) RAD, CHEST, 1 VIEW, NON [id number] 21:51:00Reason for exam:->Stroke work up.Is the patient ?->UnknownShould this be performed at the bedside?- >YesFINAL REPORT Clinical History: Stroke workup Comparison Study: None Findings: The cardiac silhouette is enlarged. The lungs are within normal limits. The pleural spaces are clear. No significant bony or soft tissue abnormalities are seen. Impression: Cardiomegaly. Signed: Wellington Goodwin MDReport Verified Date/Time: 12/07/2017 21:51:29 Reading Location: [address] Consult Reading Room POCT-GLUCOSE [id number] 11:34:00 Test Item Value Reference Range Comments POC-GLUCOSE METER (BEAKER) 84 mg/dL 70-110 TESTED AT [facility] [address] [facility] (test nqbj=2560) [facility] [address] [id number] 08:58:00 Test Item Value Reference Range Comments PHOSPHORUS (BEAKER) (test xcqg=267) 4.4 mg/dL 2.3-4.7 [id number] 08:58:00 Test Item Value Reference Range Comments MAGNESIUM (BEAKER) (test moxy=257) 2.3 mg/dL 1.6-2.6 BASIC METABOLIC [id number] 08:58:00 Test Item Value Reference Range Comments SODIUM (BEAKER) (test 142 meq/L 136-145 awcr=748) POTASSIUM (BEAKER) (test 3.9 meq/L 3.5-5.1 llgb=196) CHLORIDE (BEAKER) (test 108 meq/L 98-107 qbom=022) CO2 (BEAKER) (test 26 meq/L 22-29 juxu=038) BLOOD UREA NITROGEN 16 mg/dL 7-21 (BEAKER) (test wwgn=326) CREATININE (BEAKER) (test 0.69 mg/dL 0.57-1.25 azky=434) GLUCOSE RANDOM (BEAKER) 86 mg/dL 70-105 (test nnoj=028) CALCIUM (BEAKER) (test 8.6 mg/dL 8.4-10.2 giln=765) EGFR (BEAKER) (test 94 mL/min/1.73 sq m ESTIMATED GFR IS NOT pzaa=7794) ACCURATE CREATININE CLEARANCE IN PREDICTING GLOMERULAR FILTRATION RATE. ESTIMATED GFR IS NOT APPLICABLE FOR DIALYSIS PATIENTS. HEPATIC FUNCTION [id number] 08:58:00 Test Item Value Reference Range Comments TOTAL PROTEIN (BEAKER) (test vreo=987) 6.8 gm/dL 6.0-8.3 ALBUMIN (BEAKER) (test tnwr=6218) 3.6 g/dL 3.5-5.0 BILIRUBIN TOTAL (BEAKER) (test fqte=198) 0.4 mg/dL 0.2-1.2 BILIRUBIN DIRECT (BEAKER) (test iksh=416) 0.2 mg/dL 0.1-0.5 ALKALINE PHOSPHATASE (BEAKER) (test hthi=974) 59 U/L 40-150 AST (SGOT) (BEAKER) (test qavv=141) 24 U/L 5-34 ALT (SGPT) (BEAKER) (test gpzk=986) 17 U/L 6-55 POCT-GLUCOSE [id number] 08:20:00 Test Item Value Reference Range Comments POC-GLUCOSE METER (BEAKER) 143 mg/dL 70-110 TESTED AT [address] (test ijrg=1395) [facility] [address] PROTHROMBIN [id number] 05:55:00 Test Item Value Reference Range Comments PROTIME (BEAKER) (test mtve=466) 13.4 seconds 11.7-14.7 INR (BEAKER) (test nuhb=119) 1.0 <=5.9 RECOMMENDED COUMADIN/WARFARIN INR THERAPY RANGESSTANDARD DOSE: 2.0 - 3.0 Includes: PROPHYLAXIS forvenous thrombosis, systemic embolization; TREATMENT for venous thrombosis and/or pulmonary embolus.HIGH RISK: Target INR is 2.5-3.5 for patients with mechanical heart valves.POCT-GLUCOSE [id number] 20:32:00 Test Item Value Reference Range Comments POC-GLUCOSE METER (BEAKER) 90 mg/dL 70-110 TESTED AT [address] (test hdul=4386) [facility] [address] POCT-GLUCOSE [id number] 16:47:00 Test Item Value Reference Range Comments POC-GLUCOSE METER (BEAKER) 79 mg/dL 70-110 TESTED AT [facility] [address] [facility] (test jzei=5868) [facility] [address] POCT-GLUCOSE [id number] 07:47:00 Test Item Value Reference Range Comments POC-GLUCOSE METER (BEAKER) 97 mg/dL 70-110 TESTED AT [facility] [address] [facility] (test mnsd=0381) [facility] [address] TROPONIN [id number] 07:02:00 Test Item Value Reference Range Comments TROPONIN I (BEAKER) (test alpk=735) < ng/mL 0.00-0.03 Troponin I (TnI) levels [...] failure, acidosis, acute neurological disease, and persistent tachyarrhythmia.[id number] 07:00:00 Test Item Value Reference Range Comments PHOSPHORUS (BEAKER) (test suqw=993) 5.0 mg/dL 2.3-4.7 [id number] 07:00:00 Test Item Value Reference Range Comments MAGNESIUM (BEAKER) (test gevt=166) 1.9 mg/dL 1.6-2.6 BASIC METABOLIC [id number] 07:00:00 Test Item Value Reference Range Comments SODIUM (BEAKER) (test 141 meq/L 136-145 dkwe=320) POTASSIUM (BEAKER) (test 4.0 meq/L 3.5-5.1 sasc=443) CHLORIDE (BEAKER) (test 106 meq/L 98-107 hgci=052) CO2 (BEAKER) (test 25 meq/L 22-29 ebyi=221) BLOOD UREA NITROGEN 14 mg/dL 7-21 (BEAKER) (test zfxa=312) CREATININE (BEAKER) (test 0.72 mg/dL 0.57-1.25 kufq=619) GLUCOSE RANDOM (BEAKER) 109 mg/dL 70-105 (test gqpf=653) CALCIUM (BEAKER) (test 9.5 mg/dL 8.4-10.2 rjwz=667) EGFR (BEAKER) (test 89 mL/min/1.73 sq m ESTIMATED GFR IS NOT rkoe=4142) ACCURATE CREATININE CLEARANCE IN PREDICTING GLOMERULAR FILTRATION RATE. ESTIMATED GFR IS NOT APPLICABLE FOR DIALYSIS PATIENTS. HEPATIC FUNCTION [id number] 07:00:00 Test Item Value Reference Range Comments TOTAL PROTEIN (BEAKER) (test rduz=962) 7.7 gm/dL 6.0-8.3 ALBUMIN (BEAKER) (test irmq=4856) 4.0 g/dL 3.5-5.0 BILIRUBIN TOTAL (BEAKER) (test kkpp=426) 0.5 mg/dL 0.2-1.2 BILIRUBIN DIRECT (BEAKER) (test graa=274) 0.2 mg/dL 0.1-0.5 ALKALINE PHOSPHATASE (BEAKER) (test pvkb=576) 69 U/L 40-150 AST (SGOT) (BEAKER) (test fnvo=295) 34 U/L 5-34 ALT (SGPT) (BEAKER) (test fqev=181) 21 U/L 6-55 PROTHROMBIN [id number] 06:31:00 Test Item Value Reference Range Comments PROTIME (BEAKER) (test bfnp=609) 14.0 seconds 11.7-14.7 INR (BEAKER) (test jvtp=500) 1.1 <=5.9 RECOMMENDED COUMADIN/WARFARIN INR THERAPY RANGESSTANDARD DOSE: 2.0 - 3.0 Includes: PROPHYLAXIS forvenous thrombosis, systemic embolization; TREATMENT for venous thrombosis and/or pulmonary embolus.HIGH RISK: Target INR is 2.5-3.5 for patients with mechanical heart valves.CBC W/PLT COUNT & AUTO [id number] 06:28:00 Test Item Value Reference Range Comments WHITE BLOOD CELL COUNT (BEAKER) (test kvgd=613) 8.9 K/ L 3.5-10.5 RED BLOOD CELL COUNT (BEAKER) (test xidx=039) 4.55 M/ L 3.93-5.22 HEMOGLOBIN (BEAKER) (test gzjc=091) 13.0 GM/DL 11.2-15.7 HEMATOCRIT (BEAKER) (test unzv=245) 42.0 % 34.1-44.9 MEAN CORPUSCULAR VOLUME (BEAKER) (test idhp=449) 92.3 fL 79.4-94.8 MEAN CORPUSCULAR HEMOGLOBIN (BEAKER) (test 28.6 pg 25.6-32.2 bqfi=303) MEAN CORPUSCULAR HEMOGLOBIN CONC (BEAKER) (test 31.0 GM/DL 32.2-35.5 kjki=615) RED CELL DISTRIBUTION WIDTH (BEAKER) (test 13.9 % 11.7-14.4 ocpb=857) PLATELET COUNT (BEAKER) (test jsjs=010) 202 K/CU MM 150-450 MEAN PLATELET VOLUME (BEAKER) (test swdw=448) 12.6 fL 9.4-12.3 NUCLEATED RED BLOOD CELLS (BEAKER) (test 0 /100 WBC 0-0 xxyg=079) NEUTROPHILS RELATIVE PERCENT (BEAKER) (test 70 % eqtv=202) LYMPHOCYTES RELATIVE PERCENT (BEAKER) (test 23 % cedz=333) MONOCYTES RELATIVE PERCENT (BEAKER) (test 4 % zqlb=846) EOSINOPHILS RELATIVE PERCENT (BEAKER) (test 3 % ygfz=649) BASOPHILS RELATIVE PERCENT (BEAKER) (test 0 % rlmn=239) NEUTROPHILS ABSOLUTE COUNT (BEAKER) (test 6.19 K/ L 1.56-6.13 kaxn=226) LYMPHOCYTES ABSOLUTE COUNT (BEAKER) (test 2.03 K/ L 1.18-3.74 tmiz=747) MONOCYTES ABSOLUTE COUNT (BEAKER) (test 0.37 K/ L 0.24-0.36 blzi=750) EOSINOPHILS ABSOLUTE COUNT (BEAKER) (test 0.24 K/ L 0.04-0.36 cvsp=038) BASOPHILS ABSOLUTE COUNT (BEAKER) (test 0.02 K/ L 0.01-0.08 pdxl=076) IMMATURE GRANULOCYTES-RELATIVE PERCENT (BEAKER) 0 % 0-1 (test nnso=4472) CREATINE KINASE (CK), TOTAL AND [id number] 01:39:00 Test Item Value Reference Range Comments CREATINE KINASE TOTAL (BEAKER) (test ukku=539) 55 U/L 29-200 CREATINE KINASE-MB (BEAKER) (test mmvk=735) 1.1 ng/mL 0.0-6.6 CREATINE KINASE-MB INDEX (BEAKER) (test bkoo=300) 2.0 % CK-MB Reference Range:<6.7 Normal6.7-10.0 Borderline>10.0 AbnormalTROPONIN [id number] 01:39:00 Test Item Value Reference Range Comments TROPONIN I (BEAKER) (test cmsn=544) < ng/mL 0.00-0.03 Troponin I (TnI) levels [...] acidosis, acute neurological disease, and persistent tachyarrhythmia.POCT-GLUCOSE [id number] 12:39:00 Test Item Value Reference Range Comments POC-GLUCOSE METER (BEAKER) 80 mg/dL 70-110 TESTED AT [address] (test obtv=4502) [place] [address] POCT-GLUCOSE [id number] 07:07:00 Test Item Value Reference Range Comments POC-GLUCOSE METER (BEAKER) 100 mg/dL 70-110 TESTED AT [address] (test xhsw=1242) [place] [address] POCT-GLUCOSE [id number] 21:12:00 Test Item Value Reference Range Comments POC-GLUCOSE METER (BEAKER) 138 mg/dL 70-110 TESTED AT [address] (test ekxw=1157) [place] [address] POCT-GLUCOSE [id number] 12:04:00 Test Item Value Reference Range Comments POC-GLUCOSE METER (BEAKER) 113 mg/dL 70-110 TESTED AT [address] (test jfst=8129) [place] [address] BASIC METABOLIC [id number] 04:26:00 Test Item Value Reference Range Comments SODIUM (BEAKER) (test 141 meq/L 136-145 ewss=214) POTASSIUM (BEAKER) (test 4.2 meq/L 3.5-5.1 Specimen moderately anth=833) hemolyzed CHLORIDE (BEAKER) (test 107 meq/L 98-107 caak=490) CO2 (BEAKER) (test 25 meq/L 22-29 uxtd=689) BLOOD UREA NITROGEN 13 mg/dL 7-21 (BEAKER) (test bgnw=279) CREATININE (BEAKER) (test 0.61 mg/dL 0.57-1.25 Specimen moderately hqmx=049) hemolyzed GLUCOSE RANDOM (BEAKER) 93 mg/dL 70-105 (test vlsb=080) CALCIUM (BEAKER) (test 9.0 mg/dL 8.4-10.2 jbmz=038) EGFR (BEAKER) (test 108 mL/min/1.73 sq m ESTIMATED GFR IS NOT igma=2563) ACCURATE CREATININE CLEARANCE IN PREDICTING GLOMERULAR FILTRATION RATE. ESTIMATED GFR IS NOT APPLICABLE FOR DIALYSIS PATIENTS. CBC W/PLT COUNT & AUTO [id number] 04:02:00 Test Item Value Reference Range Comments WHITE BLOOD CELL COUNT (BEAKER) (test ducm=770) 8.4 K/ L 3.5-10.5 RED BLOOD CELL COUNT (BEAKER) (test flrl=075) 4.15 M/ L 3.93-5.22 HEMOGLOBIN (BEAKER) (test klmo=455) 11.8 GM/DL 11.2-15.7 HEMATOCRIT (BEAKER) (test ardr=231) 37.9 % 34.1-44.9 MEAN CORPUSCULAR VOLUME (BEAKER) (test aach=430) 91.3 fL 79.4-94.8 MEAN CORPUSCULAR HEMOGLOBIN (BEAKER) (test 28.4 pg 25.6-32.2 pnkq=541) MEAN CORPUSCULAR HEMOGLOBIN CONC (BEAKER) (test 31.1 GM/DL 32.2-35.5 vjkv=614) RED CELL DISTRIBUTION WIDTH (BEAKER) (test 14.1 % 11.7-14.4 tvtj=392) PLATELET COUNT (BEAKER) (test pcee=098) 200 K/CU MM 150-450 MEAN PLATELET VOLUME (BEAKER) (test hipr=620) 11.9 fL 9.4-12.3 NUCLEATED RED BLOOD CELLS (BEAKER) (test 0 /100 WBC 0-0 iddr=339) NEUTROPHILS RELATIVE PERCENT (BEAKER) (test 73 % elpc=979) LYMPHOCYTES RELATIVE PERCENT (BEAKER) (test 19 % uszv=853) MONOCYTES RELATIVE PERCENT (BEAKER) (test 5 % wnbn=766) EOSINOPHILS RELATIVE PERCENT (BEAKER) (test 3 % mdmo=367) BASOPHILS RELATIVE PERCENT (BEAKER) (test 0 % dift=206) NEUTROPHILS ABSOLUTE COUNT (BEAKER) (test 6.08 K/ L 1.56-6.13 vupp=430) LYMPHOCYTES ABSOLUTE COUNT (BEAKER) (test 1.62 K/ L 1.18-3.74 vrcp=620) MONOCYTES ABSOLUTE COUNT (BEAKER) (test 0.39 K/ L 0.24-0.36 yyxx=311) EOSINOPHILS ABSOLUTE COUNT (BEAKER) (test 0.24 K/ L 0.04-0.36 cvgi=630) BASOPHILS ABSOLUTE COUNT (BEAKER) (test 0.01 K/ L 0.01-0.08 kasl=788) IMMATURE GRANULOCYTES-RELATIVE PERCENT (BEAKER) 1 % 0-1 (test sucz=2766) CLOSTRIDIUM DIFFICILE TOXIN [id number] 13:44:00 Test Item Value Reference Range Comments CLOSTRIDIUM DIFFICILE TOXIN, PCR (BEAKER) (test Not Detected Not Detected xjtn=7168) This qualitative real-time polymerase chain reaction assay [...] a positive result is not recommended.CT, CTANGIO [id number] 06:59:00Addendum BeginsREPORT STATUS:A Three-dimensional post intravenous contrast images of the cerebral vasculature were created on a free standing workstation for better visualization of cerebral vascular anatomy and pathology. Signed: Skip Gardner MDReport Verified Date/Time: 04/12/2017 06:59:20 Reading Location: [address] Consult Reading RoomAddendum EndsFINAL REPORT Noncontrast [...] Gardner Verified Date/Time: 04/07/2017 01:12:44 Reading Location: [address] Consult Reading Room BASIC METABOLIC [id number] 05:37:00 Test Item Value Reference Range Comments SODIUM (BEAKER) (test 142 meq/L 136-145 crnd=776) POTASSIUM (BEAKER) (test 3.7 meq/L 3.5-5.1 Specimen slightly olev=770) hemolyzed CHLORIDE (BEAKER) (test 105 meq/L 98-107 vrol=457) CO2 (BEAKER) (test 27 meq/L 22-29 ezfm=263) BLOOD UREA NITROGEN 11 mg/dL 7-21 (BEAKER) (test tpmz=613) CREATININE (BEAKER) (test 0.66 mg/dL 0.57-1.25 Specimen slightly zdms=402) hemolyzed GLUCOSE RANDOM (BEAKER) 97 mg/dL 70-105 (test gjvo=292) CALCIUM (BEAKER) (test 9.2 mg/dL 8.4-10.2 esdm=281) EGFR (BEAKER) (test 99 mL/min/1.73 sq m ESTIMATED GFR IS NOT zyor=2479) ACCURATE CREATININE CLEARANCE IN PREDICTING GLOMERULAR FILTRATION RATE. ESTIMATED GFR IS NOT APPLICABLE FOR DIALYSIS PATIENTS. CBC (HEMOGRAM ONLY)2017-04-12 05:17:00 Test Item Value Reference Range Comments WHITE BLOOD CELL COUNT (BEAKER) (test ljtw=466) 7.7 K/ L 3.5-10.5 RED BLOOD CELL COUNT (BEAKER) (test flbe=827) 4.17 M/ L 3.93-5.22 HEMOGLOBIN (BEAKER) (test rlvv=342) 12.0 GM/DL 11.2-15.7 HEMATOCRIT (BEAKER) (test rhzz=254) 38.0 % 34.1-44.9 MEAN CORPUSCULAR VOLUME (BEAKER) (test vynt=318) 91.1 fL 79.4-94.8 MEAN CORPUSCULAR HEMOGLOBIN (BEAKER) (test 28.8 pg 25.6-32.2 mvpf=054) MEAN CORPUSCULAR HEMOGLOBIN CONC (BEAKER) (test 31.6 GM/DL 32.2-35.5 uqpj=373) RED CELL DISTRIBUTION WIDTH (BEAKER) (test 14.0 % 11.7-14.4 dwrh=138) PLATELET COUNT (BEAKER) (test ovab=899) 219 K/CU MM 150-450 MEAN PLATELET VOLUME (BEAKER) (test vunr=612) 11.6 fL 9.4-12.3 NUCLEATED RED BLOOD CELLS (BEAKER) (test 0 /100 WBC 0-0 ovac=826) POCT-GLUCOSE [id number] 17:55:00 Test Item Value Reference Range Comments POC-GLUCOSE METER (BEAKER) 111 mg/dL 70-110 TESTED AT [address] (test xvia=5497) [facility] [address] POCT-GLUCOSE [id number] 12:02:00 Test Item Value Reference Range Comments POC-GLUCOSE METER (BEAKER) 100 mg/dL 70-110 TESTED AT [address] (test cvku=4278) [place] [id number] POCT-GLUCOSE [id number] 07:50:00 Test Item Value Reference Range Comments POC-GLUCOSE METER (BEAKER) 110 mg/dL 70-110 TESTED AT [address] (test onsz=6792) [place] [id number] POCT-GLUCOSE [id number] 16:56:00 Test Item Value Reference Range Comments POC-GLUCOSE METER (BEAKER) 104 mg/dL 70-110 TESTED AT [address] (test ftau=3304) [facility] [address] POCT-GLUCOSE [id number] 12:22:00 Test Item Value Reference Range Comments POC-GLUCOSE METER (BEAKER) 84 mg/dL 70-110 TESTED AT [address] (test mznz=7662) [place] [id number] HEMOGLOBIN [id number] 08:46:00 Test Item Value Reference Range Comments HEMOGLOBIN A1C (BEAKER) (test akas=431) 6.2 % 4.3-6.1 BASIC METABOLIC [id number] 06:42:00 Test Item Value Reference Range Comments SODIUM (BEAKER) (test 142 meq/L 136-145 chsn=174) POTASSIUM (BEAKER) (test 4.1 meq/L 3.5-5.1 Specimen slightly yqdk=142) hemolyzed CHLORIDE (BEAKER) (test 104 meq/L 98-107 fcjn=137) CO2 (BEAKER) (test 28 meq/L 22-29 tfdu=345) BLOOD UREA NITROGEN 9 mg/dL 7-21 (BEAKER) (test muuw=442) CREATININE (BEAKER) (test 0.60 mg/dL 0.57-1.25 Specimen slightly ljcr=622) hemolyzed GLUCOSE RANDOM (BEAKER) 96 mg/dL 70-105 (test mbet=072) CALCIUM (BEAKER) (test 9.1 mg/dL 8.4-10.2 uaxp=551) EGFR (BEAKER) (test 110 mL/min/1.73 sq m ESTIMATED GFR IS NOT umsn=4062) ACCURATE CREATININE CLEARANCE IN PREDICTING GLOMERULAR FILTRATION RATE. ESTIMATED GFR IS NOT APPLICABLE FOR DIALYSIS PATIENTS. CBC W/PLT COUNT & AUTO [id number] 06:19:00 Test Item Value Reference Range Comments WHITE BLOOD CELL COUNT (BEAKER) (test hjws=435) 7.5 K/ L 3.5-10.5 RED BLOOD CELL COUNT (BEAKER) (test bvhi=143) 4.12 M/ L 3.93-5.22 HEMOGLOBIN (BEAKER) (test todi=757) 11.8 GM/DL 11.2-15.7 HEMATOCRIT (BEAKER) (test xwho=464) 37.6 % 34.1-44.9 MEAN CORPUSCULAR VOLUME (BEAKER) (test rpru=927) 91.3 fL 79.4-94.8 MEAN CORPUSCULAR HEMOGLOBIN (BEAKER) (test 28.6 pg 25.6-32.2 miio=217) MEAN CORPUSCULAR HEMOGLOBIN CONC (BEAKER) (test 31.4 GM/DL 32.2-35.5 liht=913) RED CELL DISTRIBUTION WIDTH (BEAKER) (test 13.8 % 11.7-14.4 khrz=015) PLATELET COUNT (BEAKER) (test lmed=856) 192 K/CU MM 150-450 MEAN PLATELET VOLUME (BEAKER) (test sgdh=296) 11.6 fL 9.4-12.3 NUCLEATED RED BLOOD CELLS (BEAKER) (test 0 /100 WBC 0-0 gvbl=037) NEUTROPHILS RELATIVE PERCENT (BEAKER) (test 77 % wqgn=440) LYMPHOCYTES RELATIVE PERCENT (BEAKER) (test 16 % czdm=636) MONOCYTES RELATIVE PERCENT (BEAKER) (test 4 % gmbd=865) EOSINOPHILS RELATIVE PERCENT (BEAKER) (test 2 % yukb=044) BASOPHILS RELATIVE PERCENT (BEAKER) (test 0 % iyng=992) NEUTROPHILS ABSOLUTE COUNT (BEAKER) (test 5.82 K/ L 1.56-6.13 egwd=688) LYMPHOCYTES ABSOLUTE COUNT (BEAKER) (test 1.21 K/ L 1.18-3.74 sbce=212) MONOCYTES ABSOLUTE COUNT (BEAKER) (test 0.31 K/ L 0.24-0.36 unag=782) EOSINOPHILS ABSOLUTE COUNT (BEAKER) (test 0.15 K/ L 0.04-0.36 jcxj=867) BASOPHILS ABSOLUTE COUNT (BEAKER) (test 0.01 K/ L 0.01-0.08 oscy=200) IMMATURE GRANULOCYTES-RELATIVE PERCENT (BEAKER) 1 % 0-1 (test emod=2118) POCT-GLUCOSE [id number] 12:07:00 Test Item Value Reference Range Comments POC-GLUCOSE METER (BEAKER) 110 mg/dL 70-110 TESTED AT [facility] [address] [facility] (test tbkj=7602) [facility] [address] [address], BRAIN, WITHOUT [id number] 06:55:00FINAL REPORT Clinical history : Decreased alertnessComparison [...] Verified Date/Time: 04/09/2017 06 :55:25 Reading Location: [facility] [id number] Consult Reading Room BASIC METABOLIC [id number] 05:57:00 Test Item Value Reference Range Comments SODIUM (BEAKER) (test 140 meq/L 136-145 argq=112) POTASSIUM (BEAKER) (test 3.7 meq/L 3.5-5.1 pyxy=261) CHLORIDE (BEAKER) (test 103 meq/L 98-107 xeji=331) CO2 (BEAKER) (test 29 meq/L 22-29 aypz=140) BLOOD UREA NITROGEN 7 mg/dL 7-21 (BEAKER) (test tigw=258) CREATININE (BEAKER) (test 0.56 mg/dL 0.57-1.25 csqg=246) GLUCOSE RANDOM (BEAKER) 110 mg/dL 70-105 (test iaaq=164) CALCIUM (BEAKER) (test 8.7 mg/dL 8.4-10.2 lhuh=612) EGFR (BEAKER) (test 119 mL/min/1.73 sq m ESTIMATED GFR IS NOT udxa=5666) ACCURATE CREATININE CLEARANCE IN PREDICTING GLOMERULAR FILTRATION RATE. ESTIMATED GFR IS NOT APPLICABLE FOR DIALYSIS PATIENTS. CBC W/PLT COUNT & AUTO [id number] 04:54:00 Test Item Value Reference Range Comments WHITE BLOOD CELL COUNT (BEAKER) (test lbhs=611) 8.1 K/ L 3.5-10.5 RED BLOOD CELL COUNT (BEAKER) (test iqat=255) 4.07 M/ L 3.93-5.22 HEMOGLOBIN (BEAKER) (test ivjp=592) 11.6 GM/DL 11.2-15.7 HEMATOCRIT (BEAKER) (test zbou=680) 37.3 % 34.1-44.9 MEAN CORPUSCULAR VOLUME (BEAKER) (test sjja=900) 91.6 fL 79.4-94.8 MEAN CORPUSCULAR HEMOGLOBIN (BEAKER) (test 28.5 pg 25.6-32.2 lkiu=239) MEAN CORPUSCULAR HEMOGLOBIN CONC (BEAKER) (test 31.1 GM/DL 32.2-35.5 dtpk=233) RED CELL DISTRIBUTION WIDTH (BEAKER) (test 13.6 % 11.7-14.4 nztj=539) PLATELET COUNT (BEAKER) (test gblq=044) 171 K/CU MM 150-450 MEAN PLATELET VOLUME (BEAKER) (test nazo=108) 11.3 fL 9.4-12.3 NUCLEATED RED BLOOD CELLS (BEAKER) (test 0 /100 WBC 0-0 amiz=616) NEUTROPHILS RELATIVE PERCENT (BEAKER) (test 77 % vhvt=134) LYMPHOCYTES RELATIVE PERCENT (BEAKER) (test 16 % zedq=615) MONOCYTES RELATIVE PERCENT (BEAKER) (test 5 % cthb=266) EOSINOPHILS RELATIVE PERCENT (BEAKER) (test 2 % lyhc=866) BASOPHILS RELATIVE PERCENT (BEAKER) (test 0 % rbwx=039) NEUTROPHILS ABSOLUTE COUNT (BEAKER) (test 6.20 K/ L 1.56-6.13 htpo=801) LYMPHOCYTES ABSOLUTE COUNT (BEAKER) (test 1.30 K/ L 1.18-3.74 jgog=028) MONOCYTES ABSOLUTE COUNT (BEAKER) (test 0.38 K/ L 0.24-0.36 kaic=500) EOSINOPHILS ABSOLUTE COUNT (BEAKER) (test 0.14 K/ L 0.04-0.36 zbbv=266) BASOPHILS ABSOLUTE COUNT (BEAKER) (test 0.01 K/ L 0.01-0.08 ygml=899) IMMATURE GRANULOCYTES-RELATIVE PERCENT (BEAKER) 1 % 0-1 (test lxon=5890) POCT-GLUCOSE [id number] 01:34:00 Test Item Value Reference Range Comments POC-GLUCOSE METER (BEAKER) 92 mg/dL 70-110 TESTED AT [address] (test tiuz=8527) [place] [id number] POCT-GLUCOSE [id number] 19:20:00 Test Item Value Reference Range Comments POC-GLUCOSE METER (BEAKER) 85 mg/dL 70-110 TESTED AT [address] (test fdqr=8540) [place] [address] [address], BRAIN, WITHOUT [id number] 15:47:00FINAL REPORT CT head without contrast. Comparisons: [...] Tijer[place]eport Verified Date/Time: 04/08/2017 15:47:42 POCT- GLUCOSE [id number] 12:44:00 Test Item Value Reference Range Comments POC-GLUCOSE METER (BEAKER) 94 mg/dL 70-110 TESTED AT [facility] [address] [facility] (test qpvk=9560) [facility] [address] BASIC METABOLIC [id number] 05:05:00 Test Item Value Reference Range Comments SODIUM (BEAKER) (test 142 meq/L 136-145 iruw=580) POTASSIUM (BEAKER) (test 4.0 meq/L 3.5-5.1 zlzz=354) CHLORIDE (BEAKER) (test 107 meq/L 98-107 xmpp=392) CO2 (BEAKER) (test 27 meq/L 22-29 lrei=968) BLOOD UREA NITROGEN 9 mg/dL 7-21 (BEAKER) (test xzlv=358) CREATININE (BEAKER) (test 0.59 mg/dL 0.57-1.25 mcfz=459) GLUCOSE RANDOM (BEAKER) 105 mg/dL 70-105 (test orpk=777) CALCIUM (BEAKER) (test 8.7 mg/dL 8.4-10.2 sqli=820) EGFR (BEAKER) (test 112 mL/min/1.73 sq m ESTIMATED GFR IS NOT yiiy=2803) ACCURATE CREATININE CLEARANCE IN PREDICTING GLOMERULAR FILTRATION RATE. ESTIMATED GFR IS NOT APPLICABLE FOR DIALYSIS PATIENTS. CBC W/PLT COUNT & AUTO [id number] 04:28:00 Test Item Value Reference Range Comments WHITE BLOOD CELL COUNT (BEAKER) (test grfx=013) 7.1 K/ L 3.5-10.5 RED BLOOD CELL COUNT (BEAKER) (test iedy=658) 3.90 M/ L 3.93-5.22 HEMOGLOBIN (BEAKER) (test kcmt=993) 11.0 GM/DL 11.2-15.7 HEMATOCRIT (BEAKER) (test pkox=500) 36.6 % 34.1-44.9 MEAN CORPUSCULAR VOLUME (BEAKER) (test btlr=660) 93.8 fL 79.4-94.8 MEAN CORPUSCULAR HEMOGLOBIN (BEAKER) (test 28.2 pg 25.6-32.2 tggq=074) MEAN CORPUSCULAR HEMOGLOBIN CONC (BEAKER) (test 30.1 GM/DL 32.2-35.5 xpoj=450) RED CELL DISTRIBUTION WIDTH (BEAKER) (test 14.2 % 11.7-14.4 ccvh=808) PLATELET COUNT (BEAKER) (test mgae=254) 187 K/CU MM 150-450 MEAN PLATELET VOLUME (BEAKER) (test xuxf=839) 10.9 fL 9.4-12.3 NUCLEATED RED BLOOD CELLS (BEAKER) (test 0 /100 WBC 0-0 lzbh=551) NEUTROPHILS RELATIVE PERCENT (BEAKER) (test 73 % fjzj=641) LYMPHOCYTES RELATIVE PERCENT (BEAKER) (test 19 % eluq=040) MONOCYTES RELATIVE PERCENT (BEAKER) (test 5 % igpu=664) EOSINOPHILS RELATIVE PERCENT (BEAKER) (test 2 % vgwm=158) BASOPHILS RELATIVE PERCENT (BEAKER) (test 0 % mxqb=186) NEUTROPHILS ABSOLUTE COUNT (BEAKER) (test 5.22 K/ L 1.56-6.13 dpqb=740) LYMPHOCYTES ABSOLUTE COUNT (BEAKER) (test 1.37 K/ L 1.18-3.74 wnkc=439) MONOCYTES ABSOLUTE COUNT (BEAKER) (test 0.34 K/ L 0.24-0.36 gwjy=167) EOSINOPHILS ABSOLUTE COUNT (BEAKER) (test 0.13 K/ L 0.04-0.36 toio=842) BASOPHILS ABSOLUTE COUNT (BEAKER) (test 0.01 K/ L 0.01-0.08 yipz=506) IMMATURE GRANULOCYTES-RELATIVE PERCENT (BEAKER) 1 % 0-1 (test gkyt=3272) POCT-GLUCOSE [id number] 17:32:00 Test Item Value Reference Range Comments POC-GLUCOSE METER (BEAKER) 90 mg/dL 70-110 TESTED AT [address] (test qmwr=2676) [place] [address] POCT-GLUCOSE [id number] 12:02:00 Test Item Value Reference Range Comments POC-GLUCOSE METER (BEAKER) 91 mg/dL 70-110 TESTED AT [address] (test ilgm=9984) [place] [address] EEG AWAKE AND [id number] 11:38:00Reason for exam:->R/O subclinical seizuresDATE OF [id number] OF REPORT: [id number]: [id number]: 17- 1801Start time: 09:54Stop time: 10:18ICD-10: G 93.40CPT Code: 79183 HISTORY: 41 y.o. female with history of morbid obesity, DM2 who presented today to OSH with R sided facial droop and LUE weakness . Patient was evaluated at OSH where patient was started with tPA after normal CT. Now with acute encephalopathy MEDICATIONS THAT COULD AFFECT EEG: TECHNICAL SUMMARY: This is a digital EEG recorded with 32 input channels on a [employer] system and then reviewed with bipolar and [...] additional EEG recordings. Javi Mae MDNeurophysiology Fellow [id number] Note: I personally reviewed this EEG record in its entirety and I agreewith the details of this report. Kitty Benson MD, PhDEpilepsy Attending 11 :38 AMCREATINE KINASE (CK), TOTAL AND [id number] 09:35:00 Test Item Value Reference Range Comments CREATINE KINASE TOTAL (BEAKER) (test qhcg=503) 52 U/L 29-200 CREATINE KINASE-MB (BEAKER) (test qour=119) 1.2 ng/mL 0.0-6.6 CREATINE KINASE-MB INDEX (BEAKER) (test ydtr=457) 2.3 % CK-MB Reference Range:<6.7 Normal6.7-10.0 Borderline>10.0 AbnormalTROPONIN [id number] 09:31:00 Test Item Value Reference Range Comments TROPONIN I (BEAKER) (test ajik=538) < ng/mL 0.00-0.03 Troponin I (TnI) levels [...] failure, acidosis, acute neurological disease, and persistent tachyarrhythmia.[id number] 09:28:00 Test Item Value Reference Range Comments AMMONIA (BEAKER) (test gwgt=341) 34 mol/L 18-72 TSH/FREE T4 IF [id number] 04:28:00 Test Item Value Reference Range Comments THYROID STIMULATING HORMONE (BEAKER) (test 1.12 uIU/mL 0.35-4.94 ejpi=583) VITAMIN B12 AND [id number] 04:28:00 Test Item Value Reference Range Comments VITAMIN B12 (BEAKER) (test vbnd=435) 417 pg/mL 213-816 FOLATE (BEAKER) (test fqgq=265) 13.6 ng/mL >=7.0 CBC W/PLT COUNT & AUTO [id number] 03:27:00 Test Item Value Reference Range Comments WHITE BLOOD CELL COUNT (BEAKER) (test hxmt=457) 8.1 K/ L 3.5-10.5 RED BLOOD CELL COUNT (BEAKER) (test nnlp=084) 3.91 M/ L 3.93-5.22 HEMOGLOBIN (BEAKER) (test geau=602) 11.4 GM/DL 11.2-15.7 HEMATOCRIT (BEAKER) (test mjix=072) 35.8 % 34.1-44.9 MEAN CORPUSCULAR VOLUME (BEAKER) (test pefi=386) 91.6 fL 79.4-94.8 MEAN CORPUSCULAR HEMOGLOBIN (BEAKER) (test 29.2 pg 25.6-32.2 rkzs=903) MEAN CORPUSCULAR HEMOGLOBIN CONC (BEAKER) (test 31.8 GM/DL 32.2-35.5 sone=814) RED CELL DISTRIBUTION WIDTH (BEAKER) (test 14.3 % 11.7-14.4 ansi=551) PLATELET COUNT (BEAKER) (test apnv=276) 166 K/CU MM 150-450 MEAN PLATELET VOLUME (BEAKER) (test tgep=393) 12.4 fL 9.4-12.3 NUCLEATED RED BLOOD CELLS (BEAKER) (test 0 /100 WBC 0-0 ilkv=497) NEUTROPHILS RELATIVE PERCENT (BEAKER) (test 78 % hrfm=485) LYMPHOCYTES RELATIVE PERCENT (BEAKER) (test 16 % jycc=262) MONOCYTES RELATIVE PERCENT (BEAKER) (test 4 % thkj=231) EOSINOPHILS RELATIVE PERCENT (BEAKER) (test 1 % ncdv=834) BASOPHILS RELATIVE PERCENT (BEAKER) (test 0 % ixpu=831) NEUTROPHILS ABSOLUTE COUNT (BEAKER) (test 6.27 K/ L 1.56-6.13 evta=972) LYMPHOCYTES ABSOLUTE COUNT (BEAKER) (test 1.30 K/ L 1.18-3.74 ffqk=860) MONOCYTES ABSOLUTE COUNT (BEAKER) (test 0.32 K/ L 0.24-0.36 kknt=397) EOSINOPHILS ABSOLUTE COUNT (BEAKER) (test 0.09 K/ L 0.04-0.36 xexo=121) BASOPHILS ABSOLUTE COUNT (BEAKER) (test 0.02 K/ L 0.01-0.08 gjmt=768) IMMATURE GRANULOCYTES-RELATIVE PERCENT (BEAKER) 1 % 0-1 (test rkjf=2491) CREATINE KINASE (CK), TOTAL AND [id number] 03:11:00 Test Item Value Reference Range Comments CREATINE KINASE TOTAL (BEAKER) (test ezta=330) 71 U/L 29-200 CREATINE KINASE-MB (BEAKER) (test lesc=105) 1.5 ng/mL 0.0-6.6 CREATINE KINASE-MB INDEX (BEAKER) (test ftpy=721) 2.1 % CK-MB Reference Range:<6.7 Normal6.7-10.0 Borderline>10.0 AbnormalFastingFastingTROPONIN [id number] 03:11:00 Test Item Value Reference Range Comments TROPONIN I (BEAKER) (test ogkc=541) < ng/mL 0.00-0.03 Troponin I (TnI) levels [...] acute neurological disease, and persistent tachyarrhythmia.FastingBASIC METABOLIC [id number] 03:04:00 Test Item Value Reference Range Comments SODIUM (BEAKER) (test 139 meq/L 136-145 nikd=177) POTASSIUM (BEAKER) (test 4.3 meq/L 3.5-5.1 Specimen moderately xeqk=969) hemolyzed CHLORIDE (BEAKER) (test 107 meq/L 98-107 uzzx=387) CO2 (BEAKER) (test 24 meq/L 22-29 pore=452) BLOOD UREA NITROGEN 12 mg/dL 7-21 (BEAKER) (test lzko=679) CREATININE (BEAKER) (test 0.68 mg/dL 0.57-1.25 Specimen moderately xxxj=610) hemolyzed GLUCOSE RANDOM (BEAKER) 175 mg/dL 70-105 (test didu=556) CALCIUM (BEAKER) (test 8.5 mg/dL 8.4-10.2 nrll=485) EGFR (BEAKER) (test 95 mL/min/1.73 sq m ESTIMATED GFR IS NOT gaoa=3070) ACCURATE CREATININE CLEARANCE IN PREDICTING GLOMERULAR FILTRATION RATE. ESTIMATED GFR IS NOT APPLICABLE FOR DIALYSIS PATIENTS. FastingLIPID [id number] 03:04:00 Test Item Value Reference Range Comments TRIGLYCERIDES (BEAKER) (test 99 mg/dL Specimen moderately xarr=534) hemolyzed CHOLESTEROL (BEAKER) (test 139 mg/dL Specimen moderately dkcm=707) hemolyzed HDL CHOLESTEROL (BEAKER) (test 43 mg/dL mtbt=383) LDL CHOLESTEROL CALCULATED 76 mg/dL (BEAKER) (test wmpj=937) Triglyceride Reference Range: Low Risk <150 Borderline 150- 199 High Risk 200-499 Very High Risk >=500Cholesterol Reference Range: Low Risk <200 Borderline 200-239 High Risk > 240HDL Cholesterol Reference Range: Low Risk >=60 High Risk <40LDL Cholesterol Reference Range: Optimal <100 Near Optimal 100-129 Borderline 130-159 High 160-189 Very High >=190 FastingHEPATIC FUNCTION [id number] 03:04:00 Test Item Value Reference Range Comments TOTAL PROTEIN (BEAKER) (test 7.2 gm/dL 6.0-8.3 Specimen moderately hemolyzed glsz=792) ALBUMIN (BEAKER) (test 3.4 g/dL 3.5-5.0 Specimen moderately hemolyzed ajix=1063) BILIRUBIN TOTAL (BEAKER) (test 0.3 mg/dL 0.2-1.2 Specimen moderately hemolyzed vmcu=367) BILIRUBIN DIRECT (BEAKER) 0.1 mg/dL 0.1-0.5 Specimen moderately hemolyzed (test teno=123) ALKALINE PHOSPHATASE (BEAKER) 74 U/L 40-150 (test roas=922) AST (SGOT) (BEAKER) (test 37 U/L 5-34 Specimen moderately hemolyzed rogd=942) ALT (SGPT) (BEAKER) (test 18 U/L 6-55 Specimen moderately wdts=646) hemolyzed Fasting
[2018-06-13 00:10] LABS: Absolute Lymphocytes (CBC) 1.9 K/uL (0.7-4.9); Absolute Monocytes 0.4 K/uL (0.1-1.3); Absolute Neutrophil 6.2 K/uL (1.8-8.0); Basophils % 0.6 % (0-1.3); Eosinophils % 1.7 % (0-4.4); Hematocrit 37.6 % (36.0-45.0); Lymphocytes % 21.9 % (15.3-44.8); MPV 9.8 fL (7.6-11.3); Monocytes % 4.9 % (3.3-12.3); RBC Red Blood Cell Count 4.34 M/uL (3.86-4.86)
[2018-06-13 00:13] LABS: Protime INR 1.05
[2018-06-13 00:26] LABS: ALT/SGPT 17 U/L (12-78); AST/SGOT 22 U/L (15-37); Albumin 3.4 g/dL (3.4-5.0); Alkaline Phosphatase 93 U/L (45-117); BUN Blood Urea Nitrogen 13 mg/dL (7-18); Bicarbonate 31 mmol/L (21-32); Bilirubin Direct < 0.1 mg/dL (0-0.2); Bilirubin Total 0.2 mg/dL (0.2-1.0); Glucose Level 92 mg/dL (74-106); Magnesium 2.2 mg/dL (1.8-2.4); Potassium 4.2 mmol/L (3.5-5.1); Protein, Total 7.6 g/dL (6.4-8.2); Sodium Level 142 mmol/L (136-145); Troponin (Emerg Dept Use Only) < 0.02 ng/mL (0.0-0.045)
[2018-06-13] MEDS ORDERED: ALTEPLASE 100 ML IV ONE (00:40)
[2018-06-13] MEDS ORDERED: NA CHLORIDE 0.9% 50 ML IV ONE (00:54)
[2018-06-13] MEDS ORDERED: PROPOFOL 1,000 MG/100 ML VIAL IV ONE (01:19)
[2018-06-13] MEDS ORDERED: RSI MEDICATION KIT IV ONE (01:20)
[2018-06-13] MEDS ORDERED: NA CHLORIDE 0.9% 1,000 ML ONE (01:20)
[2018-06-13] MEDS ORDERED: ONDANSETRON 4 MG/2 ML VIAL ONE (01:20)
[2018-06-13] MEDS ORDERED: LABETALOL 20 MG/4ML SYRINGE IV ONE (01:24)
--- NOTE | 2018-06-13 01:31 | EDPHYS ---
Physician Documentation [facility] Name: Kelle Calderón Age: 43 yrs Sex: Female : 1975 Arrival Date: 06/12/2018 Time: 23:34 Bed 3 Private MD: ED Physician Luis Eduardo Hernandez HPI: 06/12 23:35 This 43 yrs old Female presents to ER via EMS with complaints of Unresponsive. jr8 23:35 The patient's problem is reported as weakness, inability to talk, unresponsive. Onset: jr8 The symptoms/episode began/occurred acutely, today, at 22:50. 06/13 00:36 Duration: This was a single incident. Context: the episode(s) was witnessed, by family, jr8 occurred at home. The symptoms are alleviated by nothing. The symptoms are aggravated by nothing. Severity of symptoms: At their worst the symptoms were incapacitating. The patient has not experienced similar symptoms in the past. The patient has not recently seen a physician. stated that patient has had two ischemic strokes in the past. Last one 7 months ago. Only minor deficits from previous strokes but usually fully functional. Stated that they were at a [employer] when patient became clammy. Sat her down and gave her some water. Shortly after became unresponsive. EMS called at that time . NIGHT ORDER SELECTOR: 06/12 23:35 LMP N/A - Hysterectomy fc Historical: - Allergies: 23:46 Warfarin; fc - Home Meds: 23:46 albuterol sulfate 2.5 mg /3 mL (0.083 %) Inhl nebu twice a day [Active]; amlodipine 10 fc mg tab 1 tab once daily [Active]; lisinopril 20 mg Oral tab 1 tab once daily [Active]; metformin 500 mg Oral tab 1 tab 2 times per day [Active]; aspirin 81 mg Oral TbEC 1 tab once daily [Active]; atorvastatin 40 mg Oral tab 1 tab once daily [Active]; gabapentin 100 mg Oral cap 3 caps 3 times per day [Active]; Linzess 145 mcg Oral cap 1 cap once daily [Active]; pantoprazole 40 mg Oral TbEC 1 tab once daily [Active]; prednisone 5 mg Oral tab once daily [Active]; Robaxin 500 mg Oral tab 2 tabs 4 times per day [Active]; venlafaxine 75 mg Oral tab 2 times per day [Active]; Tylenol #4 Oral [Active]; - PMHx: 23:46 Asthma; bells palsy; Chronic pain; CVA; Diabetes - NIDDM; Hypertension; Kidney stones; fc lymphedema; Migraines; Irritable bowel syndrome; GERD; Depression; Sleep Apnea; - PSHx: 23:46 Hysterectomy; Hernia repair; Knee surgery; fc - Immunization history:: Last tetanus immunization: unknown. - Social history:: Smoking status: Patient/guardian denies using tobacco. - Ebola Screening: : Patient negative for fever greater than or equal to 101.5 degrees Fahrenheit, and additional compatible Ebola Virus Disease symptoms Patient denies exposure to infectious person Patient denies travel to an Ebola-affected area in the 21 days before illness onset. ROS: 06/13 00:36 Unable to obtain ROS due to obtunded state. jr8 Exam: 06/12 23:35 Eyes: Pupils equal round and reactive to light, extra-ocular motions intact. Lids and jr8 lashes normal. Conjunctiva and sclera are non-icteric and not injected. Cornea within normal limits. Periorbital areas with no swelling, redness, or edema. ENT: Nares patent. No nasal discharge, no septal abnormalities noted. Tympanic membranes are normal and external auditory canals are clear. Oropharynx with no redness, swelling, or masses, exudates, or evidence of obstruction, uvula midline. Mucous membranes moist. Neck: Trachea midline, no thyromegaly or masses palpated, and no cervical lymphadenopathy. Supple, full range of motion without nuchal rigidity Cardiovascular: Regular rate and rhythm with a normal S1 and S2. No gallops, murmurs, or rubs. Normal PMI, no JVD. No pulse deficits. Respiratory: Lungs have equal breath sounds bilaterally, clear to auscultation and percussion. No rales, rhonchi or wheezes noted. No increased work of breathing, no retractions or nasal flaring. Abdomen/GI: Soft with normal bowel sounds. No distension or tympany Skin: Warm, dry with normal turgor. Normal color with no rashes, no lesions, and no evidence of cellulitis. MS/ Extremity: Pulses equal, no cyanosis Neuro: Orientation: Not oriented to person, place, time, situation, Mentation: able to follow commands, Memory: unable to test, Cerebellar function: unable to test, Motor: Strength is 1/5 in the right hand and right foot, No movement on left side, Sensation: pin prick is decreased in the , seizure activity, is not displayed by the patient, Abnormal movements: there are no abnormal movements. 23:46 Radiologist reports: No acute finding 8 Vital Signs: 23:35 BP 164 / 105; Pulse 86; Resp 18; Pulse Ox 99% on R/A; Weight 147.42 kg (R); Height 5 fc ft. 8 in. (172.72 cm) (R); Pain 0/10; 06/13 01:13 BP 204 / 118; Pulse 88; Resp 15; Pulse Ox 98% on R/A; ak1 01:20 Pulse 101; Resp 18; Pulse Ox 100% on 100% FiO2 ETT vent; ak1 01:21 BP 166 / 127; Pulse 108; Resp 20; Pulse Ox 100% on 100% FiO2 ETT vent; ak1 01:23 BP 213 / 139; Pulse 117; Resp 19; Pulse Ox 100% on ETT vent; ak1 01:28 BP 202 / 188; Pulse 91; Resp 16; Pulse Ox 98% on 60% FiO2 ETT vent; ak1 01:30 BP 119 / 72; Pulse 85; Resp 14; Pulse Ox 99% on 60% FiO2 ETT vent; ak1 01:33 BP 107 / 59; Pulse 83; Resp 18; Pulse Ox 99% on 60% FiO2 ETT vent; ak1 06/12 23:35 Body Mass Index 49.42 (147.42 kg, 172.72 cm) fc NIH Stroke Scale Scores: 06/12 23:35 NIHSS Score: 36 jr8 Procedures: 06/13 01:48 Intubation: Ventilated with 100% NRB prior to procedure. O2 saturation prior to jr8 procedure was 100 %. Intubated orally using # 3 Rehana blade with 7.5 mm ETT. was successful on first attempt. Ventilated with Ambu bag. ventilator. Tube secured with ETT han measured 23 cm at lip. Placement verified by CXR, CO2 detector with (+) color change, auscultating bilateral breath sounds, O2 saturation after procedure was 100 %. MDM: 06/12 23:46 Patient medically screened. jr8 06/13 00:21 ED course: Talked to Dr. Perkins who agrees TPA advised at this time. jr8 01:47 ED course: Patient started to have hypersecretions and was gagging. Electively jr8 intubated patient to protect airway. 02:04 Data reviewed: vital signs, nurses notes, lab test result(s), EKG, radiologic studies, jr8 CT scan, plain films. Data interpreted: Pulse oximetry: on ventilator is 99 %. Interpretation: normal. Counseling: I had a detailed discussion with the patient and/or guardian regarding: the historical points, exam findings, and any diagnostic results supporting the discharge/admit diagnosis, lab results, radiology results, the need to transfer to another facility, for higher level of care, [facility] does not immediately have the required specialist. 06/12 23:41 Order name: glucometer results - FOR PT WITH NO ID; Complete Time: 23:56 jd3 06/12 23:42 Order name: UDS 06/12 23:42 Order name: Hepatic Function; Complete Time: 00:45 06/12 23:42 Order name: Magnesium; Complete Time: 00:45 06/12 23:42 Order name: Troponin (emerg Dept Use Only); Complete Time: 00:45 06/12 23:42 Order name: Basic Metabolic Panel; Complete Time: 00:45 06/12 23:42 Order name: CBC with Diff; Complete Time: 00:45 06/12 23:42 Order name: Protime (+inr); Complete Time: 00:45 06/12 23:42 Order name: Ptt, Activated; Complete Time: 00:45 06/12 23:42 Order name: CT Stroke Brain w/o Contrast 06/12 23:42 Order name: Stroke CXR 1 View 06/13 00:17 Order name: Head angio [facility] 06/13 00:19 Order name: Neck Angio [facility] 06/12 23:42 Order name: EKG; Complete Time: 23:43 06/12 23:42 Order name: Accucheck; Complete Time: 00:02 06/12 23:42 Order name: Cardiac monitoring; Complete Time: 00:02 06/12 23:42 Order name: EKG - Nurse/Tech; Complete Time: 00:15 06/12 23:42 Order name: IV Saline Lock; Complete Time: 00:10 06/12 23:42 Order name: Labs collected and sent; Complete Time: 00:10 ea 06/12 23:42 Order name: NPO; Complete Time: 00:02 ea 06/13 01:26 Order name: Chest Single View XRAY ak1 06/12 23:42 Order name: O2 Per Protocol; Complete Time: 00:02 ea 06/12 23:42 Order name: O2 Sat Monitoring; Complete Time: 00:03 ea 06/12 23:42 Order name: Stroke Swallow Screen; Complete Time: 02:09 ea 06/13 01:38 Order name: Woods; Complete Time: 01:38 ak1 06/13 01:38 Order name: NG Tube; Complete Time: :38 ak1 Administered Medications: 00:43 Drug: ACTIvase {Co-Signature: latricia (Jeanette Barnard RN).} Route: IV Thrombolytics; Rate: ak1 calculated rate; Infused Over: 60 mins; 01:45 Follow up: Response: No adverse reaction ak1 01:45 Follow up: Response: No adverse reaction ak1 :45 Follow up: Response: No adverse reaction ea 02:07 Follow up: Response: No adverse reaction ak1 02:11 Follow up: Response: No adverse reaction bb 02:11 Follow up: Urine output 100 ml; Response: No adverse reaction; TPA completed at 0145 bb 01:17 Drug: Etomidate 20 mg Route: IVP; Site: left antecubital; ak1 01:36 Follow up: Response: No adverse reaction ak1 01:17 Drug: Succinylcholine 150 mg Route: IVP; Site: left antecubital; ak1 01:36 Follow up: Response: No adverse reaction ak1 01:23 Drug: NS 0.9% 1000 ml Route: IV; Rate: 125 ml/hr; Site: left antecubital; ak1 01:36 Follow up: IV Status: Infusion continued upon transfer ak1 01:26 Drug: Versed 4 mg Route: IVP; Site: left antecubital; ak1 01:47 Follow up: Response: No adverse reaction ak1 01:27 Drug: fentaNYL (PF) 100 mcg Route: IVP; Site: left antecubital; ak1 01:47 Follow up: Response: No adverse reaction ak1 01:39 Drug: Propofol 5 mcg/kg/min {Note: 20mg IVP .} Route: IV; Rate: calculated rate; Site: [facility] left antecubital; 01:48 Follow up: IV Status: Completed infusion; Completed infusion one time dose given ak1 01:55 Drug: VecuroNIUM 10 mg Route: IVP; Site: left antecubital; ak1 01:56 Follow up: Response: No adverse reaction ak1 Point of Care Testing: Blood Glucose: 06/12 23:39 Blood Glucose: 104 mg/dL; fc Ranges: Critical Glucose Levels:Adult <50 mg/dl or >400 mg/dl <40 mg/dl or >180 mg/dl Disposition: 06/13 03:55 Co-signature as Attending Physician, Luis Eduardo Hernandez MD. Disposition: 06/13/18 01:31 Transfer ordered to Other Acute Care Facility. Diagnosis is Cerebral infarction. - Reason for transfer: Higher level of care. - Accepting physician is Dr. Perkins. - Condition is Critical. - Problem is new. - Symptoms are unchanged. Critical care time excluding procedures: 02:34 Critical care time: Bedside Care: 20 minutes, Consultation: 15 minutes, Family jr8 Intervention: 10 minutes. Total time: 45 minutes NIH Stroke Scale - NIH Stroke Score Date: 06/12/2018 Time: 23:35 Total Score = 36 1a. Level of Consciousness (LOC) - 2(Not Alert, obtunded) 1b. Level of Consciousness (LOC) (Year \T\ Age) - 2(Neither) 1c. LOC Commands (Open \T\ Closes Eyes/[employer]) - 1(One) 2. Best Gaze (Lateral Gaze Paresis) - 1(Partial gaze palsy) 3. Visual Field Loss - 3(Bilateral hemianopia) 4. Facial Palsy - 2(Partial paralysis) 5a. Left Arm: Motor (10-second hold) - 4(No movement) 5b. Right Arm: Motor (10-second hold) - 3(No effort against gravity) 6a. Left Leg: Motor (5-second hold - always test supine) - 4(No movement) 6b. Right Leg: Motor (5-second hold - always test supine) - 3(No effort against gravity) 7. Limb Ataxia (finger/nose \T\ heel/dillon - test with eyes open) - 2(Present in two limbs) 8. Sensory Loss (pinprick arms/legs/face) - 2(Severe to total loss) 9. Best Language: Aphasia (description/naming/reading) - 3(Mute, global aphasia) 10. Dysarthria (speech clarity - read or repeat words) - 2(Severe) 11. Extinction and Inattention (visual/tactile/auditory/spatial/personal) - 2(Profound) Initials: jr8 Signatures: Dispatcher [employer] EDMS Kiara Ornelas RN Samuel Chen PA PA jr8 Lory Thurston RN RN Jeanette Mccabe RN RN ea Starr, Gregory, MD MD gs Ballard, Brenda RN bb Elena Antunez RN ea Corrections: (The following items were deleted from the chart) 00:39 12 23:35 Onset: The symptoms/episode began/occurred acutely, today, at jr8 22:30, jr8 06/13 02:04 01:31 06/13/2018 01:31 Transfer ordered to Other Acute Care Facility. Diagnosis jr8 is Cerebral infarction. Reason for transfer: Higher level of care. Accepting physician is sonali. Condition is Stable. Problem is new. Symptoms are unchanged. 02:21 02:04 06/13/2018 01:31 Transfer ordered to Other Acute Care Facility. Diagnosis ea is Cerebral infarction. Reason for transfer: Higher level of care. Accepting physician is Dr. Perkins. Condition is Critical. Problem is new. Symptoms are unchanged. jr8
--- NOTE | 2018-06-13 01:31 | ER ---
Nurse's Notes [facility] Name: Kelle Calderón Age: 43 yrs Sex: Female : 1975 Arrival Date: 06/12/2018 Time: 23:34 Bed 3 Private MD: Diagnosis: Cerebral infarction Presentation: 06/12 23:35 Presenting complaint: EMS states: that pt was at [facility], started to not feel well so fc walked her outside to a chair. Pt then became unresponsive so he called 911. Transition of care: patient was not received from another setting of care. Onset of symptoms was June 12, 2018 at 22:50. Risk Assessment: Do you want to hurt yourself or someone else? Patient reports no desire to harm self or others. Initial Sepsis Screen: Does the patient meet any 2 criteria? Yes Does the patient have a suspected source of infection? No. Patient's initial sepsis screen is negative. Care prior to arrival: None. 23:35 Method Of Arrival: EMS: [facility] 23:35 Acuity: SIMRAN 2 fc LOAN ASSISTANT: 23:35 LMP N/A - Hysterectomy fc Historical: - Allergies: 23:46 Warfarin; fc - Home Meds: 23:46 albuterol sulfate 2.5 mg /3 mL (0.083 %) Inhl nebu twice a day [Active]; amlodipine 10 fc mg tab 1 tab once daily [Active]; lisinopril 20 mg Oral tab 1 tab once daily [Active]; metformin 500 mg Oral tab 1 tab 2 times per day [Active]; aspirin 81 mg Oral TbEC 1 tab once daily [Active]; atorvastatin 40 mg Oral tab 1 tab once daily [Active]; gabapentin 100 mg Oral cap 3 caps 3 times per day [Active]; Linzess 145 mcg Oral cap 1 cap once daily [Active]; pantoprazole 40 mg Oral TbEC 1 tab once daily [Active]; prednisone 5 mg Oral tab once daily [Active]; Robaxin 500 mg Oral tab 2 tabs 4 times per day [Active]; venlafaxine 75 mg Oral tab 2 times per day [Active]; Tylenol #4 Oral [Active]; - PMHx: 23:46 Asthma; bells palsy; Chronic pain; CVA; Diabetes - NIDDM; Hypertension; Kidney stones; fc lymphedema; Migraines; Irritable bowel syndrome; GERD; Depression; Sleep Apnea; - PSHx: 23:46 Hysterectomy; Hernia repair; Knee surgery; fc - Immunization history:: Last tetanus immunization: unknown. - Social history:: Smoking status: Patient/guardian denies using tobacco. - Ebola Screening: : Patient negative for fever greater than or equal to 101.5 degrees Fahrenheit, and additional compatible Ebola Virus Disease symptoms Patient denies exposure to infectious person Patient denies travel to an Ebola-affected area in the 21 days before illness onset. Screenin:35 Abuse screen: Denies threats or abuse. Nutritional screening: No deficits noted. fc Tuberculosis screening: No symptoms or risk factors identified. 06/13 01:50 Fall Risk IV access (20 points). ak1 Assessment: 06/12 23:59 General: Appears obese, well groomed, Behavior is unresponsive. Pain: Unable to use ea pain scale. Patient is unresponsive. Neuro: Level of Consciousness is obtunded, Oriented to none. Neuro: Facial droop on left. Cardiovascular: Patient's skin is warm and dry. Respiratory: Airway is patent Respiratory effort is even, unlabored, Respiratory pattern is regular, symmetrical. GI: Abdomen is non-distended, obese. :. Derm: Skin is pink, warm \T\ dry. 06/13 00:55 Reassessment: pt began to choke on her own secretions and could no longer maintain her ak1 own airway. pt needing airway for transport by ground EMS. 01:00 Reassessment: Mile DOWLING for ICU [facility] report call as well as ak1 update on pt coming ground EMS and intubated. Report called to Lisa DOWLING at [facility] ER and updated on pt coming by ground EMS and intubated. 01:16 Reassessment: pt began choking on her own secretions, unable to obtain her own airway. ak1 pt being bagged. TPA paused for RSI administration until 2nd IV obtained. 01:18 Reassessment: TPA restarted. ak1 01:33 Reassessment: TPA finished infusing. ak1 01:58 Reassessment: Mile DOWL[facility] ICU room 441 and Lisa [facility] ER updated on pt condition and vent ak1 settings. 02:19 Reassessment: Pt remains sedated and intubated, [facility] at [facility] for ea transfer, pt taken via stretcher per EMS. Vital Signs: 06/12 23:35 BP 164 / 105; Pulse 86; Resp 18; Pulse Ox 99% on R/A; Weight 147.42 kg (R); Height 5 fc ft. 8 in. (172.72 cm) (R); Pain 0/10; 06/13 01:13 BP 204 / 118; Pulse 88; Resp 15; Pulse Ox 98% on R/A; ak1 01:20 Pulse 101; Resp 18; Pulse Ox 100% on 100% FiO2 ETT vent; ak1 01:21 BP 166 / 127; Pulse 108; Resp 20; Pulse Ox 100% on 100% FiO2 ETT vent; ak1 01:23 BP 213 / 139; Pulse 117; Resp 19; Pulse Ox 100% on ETT vent; ak1 01:28 BP 202 / 188; Pulse 91; Resp 16; Pulse Ox 98% on 60% FiO2 ETT vent; ak1 01:30 BP 119 / 72; Pulse 85; Resp 14; Pulse Ox 99% on 60% FiO2 ETT vent; ak1 01:33 BP 107 / 59; Pulse 83; Resp 18; Pulse Ox 99% on 60% FiO2 ETT vent; ak1 06/12 23:35 Body Mass Index 49.42 (147.42 kg, 172.72 cm) fc NIH Stroke Scale Scores: 06/12 23:35 NIHSS Score: 36 jr ED Course: 23:34 Patient arrived in ED. am2 23:35 Arm band placed on Patient placed in an exam room, on a stretcher. fc 23:35 Patient has correct armband on for positive identification. Placed in gown. Bed in low fc position. Call light in reach. Side rails up X2. satellite project site monitor on. Pulse ox on. NIBP on. 23:46 Samuel Teague PA is PHCP. jr8 23:46 Luis Eduardo Hernandez MD is Attending Physician. jr8 23:49 Triage completed. fc 23:54 X-ray(s) taken. fc 23:56 CT Stroke Brain w/o Contrast In Process Unspecified. EDMS 23:56 X-ray completed. Portable x-ray completed in exam room. Patient tolerated procedure ag1 well. 23:57 Stroke CXR 1 View In Process Unspecified. EDMS 23:58 Inserted saline lock: 20 gauge in left antecubital area, using aseptic technique. Blood fc collected. 23:59 Jeanette Barnard, RN is Primary Nurse. ea 23:59 CT completed. Patient tolerated procedure well. Patient moved back from CT. kw1 06/13 00:00 Initial lab(s) drawn, by me, sent to lab. fc 00:08 EKG done, by ED staff, reviewed by Luis Eduardo Hernandez MD. ds4 00:[address] via stretcher. kw1 00:50 Head angio In Process Unspecified. EDMS 00:50 Neck Angio In Process Unspecified. EDMS 00:51 CT completed. Patient tolerated procedure well. Patient moved back from CT. kw1 01:18 Inserted saline lock: 20 gauge in right antecubital area, using aseptic technique. ak1 ,using aseptic technique. placed by Kiara. 01:19 Assisted provider with intubation using 7.5 mm ETT via oral route. ET tube secured at ak1 teeth. Intubated by Samuel PITT Placement verified by CXR, CO2 detector w/ + color change, auscultating bilateral breath sounds. 01:24 Assisted provider with intubation vent settings 60% O2 with tidal volume 500. PEEP 5. ak1 01:26 Woods cath inserted, using sterile technique, 16 Fr., by ED staff, balloon inflated, to ak1 gravity drainage. 01:26 NGT: inserted 14 Fr. other OG tube placed verified placement of air over stomach, ak1 Placement verified by X-ray, to intermittent suction. 01:39 Chest Single View XRAY In Process Unspecified. EDMS 01:50 Patient transferred, IV remains in place. ak1 02:30 One-on-one care X 180 minutes. ak1 Administered Medications: 00:43 Drug: ACTIvase {Co-Signature: latricia (Jeanette Barnard RN).} Route: IV Thrombolytics; Rate: ak1 calculated rate; Infused Over: 60 mins; 01:45 Follow up: Response: No adverse reaction ak1 01:45 Follow up: Response: No adverse reaction ak1 01:45 Follow up: Response: No adverse reaction ea 02:07 Follow up: Response: No adverse reaction ak1 02:11 Follow up: Response: No adverse reaction bb 02:11 Follow up: Urine output 100 ml; Response: No adverse reaction; TPA completed at 0145 bb 01:17 Drug: Etomidate 20 mg Route: IVP; Site: left antecubital; ak1 01:36 Follow up: Response: No adverse reaction ak1 01:17 Drug: Succinylcholine 150 mg Route: IVP; Site: left antecubital; ak1 01:36 Follow up: Response: No adverse reaction ak1 01:23 Drug: NS 0.9% 1000 ml Route: IV; Rate: 125 ml/hr; Site: left antecubital; ak1 01:36 Follow up: IV Status: Infusion continued upon transfer ak1 01:26 Drug: Versed 4 mg Route: IVP; Site: left antecubital; ak1 01:47 Follow up: Response: No adverse reaction ak1 01:27 Drug: fentaNYL (PF) 100 mcg Route: IVP; Site: left antecubital; ak1 01:47 Follow up: Response: No adverse reaction ak1 01:39 Drug: Propofol 5 mcg/kg/min {Note: 20mg IVP .} Route: IV; Rate: calculated rate; Site: [facility] left antecubital; 01:48 Follow up: IV Status: Completed infusion; Completed infusion one time dose given ak1 01:55 Drug: VecuroNIUM 10 mg Route: IVP; Site: left antecubital; ak1 01:56 Follow up: Response: No adverse reaction ak1 Point of Care Testing: Blood Glucose: 06/12 23:39 Blood Glucose: 104 mg/dL; fc Ranges: Intake: Output: 06/13 02:11 Urine: 100ml; Total: 100ml. bb Outcome: :31 ER care complete, transfer ordered by . gs 01:49 critical ak1 01:49 Instructed on pt instructed on need for transfer. 01:59 Transferred by ground EMS to [facility], Transfer form completed. X-rays sent ak1 w/ patient. Note: pt sent to [facility] room 441. report given to [facility] 02:21 Patient left the ED. ea NIH Stroke Scale - NIH Stroke Score Date: 06/12/2018 Time: 23:35 Total Score = 36 1a. Level of Consciousness (LOC) - 2(Not Alert, obtunded) 1b. Level of Consciousness (LOC) (Year \T\ Age) - 2(Neither) 1c. LOC Commands (Open \T\ Closes Eyes/Imaging Nurse) - 1(One) 2. Best Gaze (Lateral Gaze Paresis) - 1(Partial gaze palsy) 3. Visual Field Loss - 3(Bilateral hemianopia) 4. Facial Palsy - 2(Partial paralysis) 5a. Left Arm: Motor (10-second hold) - 4(No movement) 5b. Right Arm: Motor (10-second hold) - 3(No effort against gravity) 6a. Left Leg: Motor (5-second hold - always test supine) - 4(No movement) 6b. Right Leg: Motor (5-second hold - always test supine) - 3(No effort against gravity) 7. Limb Ataxia (finger/nose \T\ heel/dillon - test with eyes open) - 2(Present in two limbs) 8. Sensory Loss (pinprick arms/legs/face) - 2(Severe to total loss) 9. Best Language: Aphasia (description/naming/reading) - 3(Mute, global aphasia) 10. Dysarthria (speech clarity - read or repeat words) - 2(Severe) 11. Extinction and Inattention (visual/tactile/auditory/spatial/personal) - 2(Profound) Initials: alexander Signatures: Dispatcher [employer] EDMS Kiara Ornelas RN RN fc Ballard, Brenda, RN RN bb Roszak, Josh, PA PA jr8 Sunny Berrios ds4 Lory Thurston RN RN ak1 Gallaway, Ashley ag1 Coretta Lockwood am2 Jeanette Barnard RN RN ea Starr, Gregory, MD MD gs Wilhelm, Kimberly 1 Jeanette Barnard RN, ea Corrections: (The following items were deleted from the chart) 00:16 00:09 EKG done, by ED staff, reviewed by Samuel kim ds4 01:30 01:28 Reassessment: pt began choking on her own secretions, unable to obtain ak1 her own airway. pt being bagged. TPA paused for RSI administration until 2nd IV obtained. ak1 01:57 01:24 Assisted provider with intubation vent settings 60% O2 with tidal volume ak1 500. ak1
[2018-06-13] MEDS ORDERED: MIDAZOLAM HCL 2 MG/2 ML INJ ONE (01:33)
[2018-06-13] MEDS ORDERED: FENTANYL CITR 100 MCG/2 ML ONE (01:34)
[2018-06-13] MEDS ORDERED: VECURONIUM 10 MG/VIAL IV ONE (02:02)
[2018-06-13] MEDS ORDERED: WATER FOR INJ,STERILE 10 ML ONE (02:03)
[2018-06-13 02:36] LABS: Barbiturates NEGATIVE (NEGATIVE); Benzodiazepines NEGATIVE (NEGATIVE); Cocaine NEGATIVE (NEGATIVE); METHAMPHETAM NEGATIVE (NEGATIVE); Methadone NEGATIVE (NEGATIVE); Opiates NEGATIVE (NEGATIVE); Phencyclidine NEGATIVE (NEGATIVE); THC Cannibis NEGATIVE (NEGATIVE); Urine Blood 1+ (NEG); Urine Glucose NEGATIVE (NEG); Urine Protein 1+ (NEG); Urine Specific Gravity 1.015 (1.005-1.030)
[2018-06-13 03:28] VITALS: O2SAT 99
[2018-06-13 03:29] VITALS: BP 107/59
--- NOTE | 2018-06-13 08:09 | RAD REPORT ---
EXAM DESCRIPTION: RAD - Chest Single View - 06/12/2018 11:58 pm CLINICAL HISTORY: CVA, shortness of breath COMPARISON: May 07 TECHNIQUE: AP portable chest image was obtained 2354 hours . FINDINGS: Lung volumes are very low. Portable technique, low lung volumes and very large body habitu s limit the examination. No gross evidence for a peripheral mass or consolidation. Mediastinum is wid ened by the exam limitations along with rotation. Heart and vasculature are normal. No measurable ple ural effusion and no pneumothorax. No acute bony abnormality seen. No acute aortic findings suspected . IMPRESSION: Chest exam has substantial limitation but appears to be clear of an acute cardiopulmonar y process.
--- NOTE | 2018-06-13 08:11 | RAD REPORT ---
EXAM DESCRIPTION: RAD - Chest Single View - 06/13/2018 1:42 am CLINICAL HISTORY: Intubation, shortness of breath COMPARISON: June 12 TECHNIQUE: AP portable chest image was obtained 0127 hours . FINDINGS: Endotracheal tube has been placed. Tip is mid aortic arch level 2 cm above the melissa. NG tube is in place. Tip is poorly visualized but does extend below the diaphragm. No new or progressive lung parenchymal process. Inspiratory effort remains very shallow limiting asse ssment. Mediastinum is widened by the exam limitations. Heart size within normal range and stable. No measurable pleural effusion and no pneumothorax. No acute bony abnormality seen. No acute aortic fin dings suspected. IMPRESSION: ET tube and NG tube in good position. No new or progressive cardiopulmonary finding from earlier study.
--- NOTE | 2018-06-13 08:30 | RAD REPORT ---
EXAM DESCRIPTION: CT - Ct Stroke Brain Wo Cont - 06/13/2018 7:26 am CLINICAL HISTORY: Transient alteration of awareness, unresponsive, acute CVA A preliminary report was provided at the time of the study and reviewed prior to final report. CLINICAL HISTORY: CT imaging May 07, 2018 TECHNIQUE: Axial 5 millimeter thick images of the head were obtained without IV contrast. All CT scans are performed using dose optimization technique as appropriate and may include automated exposure control or mA/KV adjustment according to patient size. FINDINGS: No intracranial hemorrhage, mass, or cerebral edema. No acute infarction identifiable. No extra-axial fluid collections. Wan matter-white matter differentiation is preserved. Visualized portions of the mastoid air cells, paranasal sinuses, and orbits are unremarkable. IMPRESSION: No CT evidence of acute intracranial process. No significant change from comparison.
--- NOTE | 2018-06-13 08:34 | RAD REPORT ---
EXAM DESCRIPTION: CT - Neck Angio - 06/13/2018 7:28 am CLINICAL HISTORY: Unresponsive, acute onset of altered mental status, suspected CVA A preliminary report was provided at the time of the study and reviewed prior to final report. TECHNIQUE: During dynamic enhancement using nonionic IV contrast, axial 2 mm thick images of the nec k were obtained. Sagittal and axial reconstruction images were generated and reviewed. All CT scans are performed using dose optimization technique as appropriate and may include automated exposure control or mA/KV adjustment according to patient size. FINDINGS: No aneurysm or vascular malformation identified. No carotid or vertebral dissection. No aortic arch or great vessel origin abnormality seen. Vertebral artery origins are not well visuali zed. No stenosis, vasculitis or other significant carotid artery finding. No focal abnormality of eit her vertebral artery. Basilar artery is normal. 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 This is a variant o f anatomy not uncommonly seen. Large body habitus limits detail on the examination. IMPRESSION: Negative CT angio neck examination.
--- NOTE | 2018-06-13 08:37 | RAD REPORT ---
EXAM DESCRIPTION: CT - Head angio - 06/13/2018 7:27 am CLINICAL HISTORY: Unresponsive, stroke-like symptoms, acute CVA workup A preliminary report was provided at the time of the study and reviewed prior to final report. TECHNIQUE: During dynamic enhancement using nonionic IV contrast, axial 1 millimeter thick images of the head were obtained. Sagittal and axial reconstruction images were generated and reviewed. All CT scans are performed using dose optimization technique as appropriate and may include automated exposure control or mA/KV adjustment according to patient size. COMPARISON: CT head and CT angio neck June 12, 2018, CT angio workup May 07, 2018 FINDINGS: No aneurysm or vascular malformation identified. Major venous sinuses are patent. No stenosis, named branch occlusion, vasculitis or other significant vascular finding identifiable. T he bilateral anterior cerebral, middle cerebral and posterior cerebral artery show no suspicious find ings. Basilar artery and distal vertebral arteries without suspicious finding. IMPRESSION: Negative CT angio head examination.
--- NOTE | 2018-06-13 08:45 | EKG ---
Test Date: 2018-06-13 Test Time: 00:08:03 [employer] Swaging Machine Operator: ROWAN MEASUREMENT RESULTS: Intervals: Rate: 84 NH: 120 QRSD: 90 QT: 388 QTc: 458 [place]: P: 4 NH: 120 QRS: 23 T: 25 INTERPRETIVE STATEMENTS: Normal sinus rhythm with sinus arrhythmia Normal ECG Compared to ECG 05/07/2018 07:49:31 Short NH interval no longer present Myocardial infarct finding no longer present Electronically Signed On 06-13-18 08:45:02 DEFECT CUTTER by Clinton Schulz
== END 2018-06-13 02:21 ==
LOC: ER 23:30
PROC: 0BH17EZ Insertion of Endotracheal Airway into Trachea, Via Natural or Artificial Opening (ICD-10-PCS; principal; 2018-06-13)
PROC: 5A1935Z Respiratory Ventilation, Less than 24 Consecutive Hours (ICD-10-PCS; 2018-06-13)
PROC: 3E03317 Introduction of Other Thrombolytic into Peripheral Vein, Percutaneous Approach (ICD-10-PCS; 2018-06-13)
DX: I63.9 Cerebral infarction, unspecified (principal); I10 Essential (primary) hypertension; R29.736 NIHSS score 36; E11.9 Type 2 diabetes mellitus without complications; F32.9 Major depressive disorder, single episode, unspecified; J45.909 Unspecified asthma, uncomplicated; Z79.82 Long term (current) use of aspirin; Z88.8 Allergy status to other drugs, medicaments and biological substances; Z86.73 Personal history of transient ischemic attack (TIA), and cerebral infarction without residual deficits
CPT/HCPCS: 31500; 36415; 51702; 70450; 70496; 70498; 71045 ×2; 80048; 80076; 80307 ×8; 81003; 81025; 82962; 83735; 84484; 85025; 85610; 85730; 92977; 93005; 94002; 96374; 96375; 99291; J0330; J2250; J2405; J2704; J2997; J3010; J7030; Q9967

== ENCOUNTER 2018-06-19 10:02 | Emergency (ER) | payer OTHER ==
--- OUTSIDE RECORDS SUMMARY | 2018-06-19 10:05 | XMS REPORT | Clinical Summary ---
:1975 Author Organization [facility] Address [address] [place] [address] Care Team Providers Name Role Phone Pcp, No Primary Care Provider Unavailable Allergies Active Allergy Reactions Severity Noted Date Comments Warfarin Nausea And Vomiting 06/07/2016 Medications Medication Sig Dispensed Refills Start Date End Date Status bifidobacterium Take by 0 Active infantis (ALIGN) 4 mg mouth daily. Cap methocarbamol Take 750 mg 0 Active (ROBAXIN) 750 MG by mouth 4 tablet (four) times daily as needed . venlafaxine (EFFEXOR) Take 75 mg 0 Active 75 MG tablet by mouth 2 (two) times daily. pantoprazole Take 40 mg 0 Active (PROTONIX) 40 MG by mouth tablet daily. magnesium oxide Take 400 mg 0 Active (MAG-OX) 400 mg by mouth 2 tablet (two) times daily. hyoscyamine Take 0.125 0 12/07/2017 Discontinued (LEVSIN/SL) 0.125 mg mg by mouth SL tablet 2 (two) times daily. esomeprazole (NEXIUM) Take 40 mg 0 12/07/2017 Discontinued 40 MG capsule by mouth daily. atorvastatin Take 1 30 tablet 0 04/14/2017 04/14/2018 (LIPITOR) 40 MG tablet (40 tablet mg total) by mouth nightly. amitriptyline Take 1 30 tablet 3 05/04/2017 05/04/2018 (ELAVIL) 10 MG tablet tablet (10 mg total) by mouth nightly. Active Problems Problem Noted [...] ischemic stroke (HCC); 12/09/2017 Dori, Left-sided weakness; Status post administration of tPA (rtPA) in a different facility within the last 24 hours prior to admission to current facility; Functional neurological symptom disorder with weakness or paralysis after 06/18/2017 Family History Medical History Relation Name Comments [...] procedure are in the results section. after 06/18/2017 Results EKG-SCANNED (12/12/2017 2:21 PM CDT) Narrative Performed At RHYTHM STRIP - SCAN (12/12/2017 2:21 PM CDT) Narrative Performed At POC-Glucose meter (12/09/2017 8:19 AM CDT)Only the most recent of6 resultswithin the time period is included. POC-Glucose Meter 99Comment: TESTED AT 70 - 110 mg/dL [facility] [address] [facility] [address] Specimen Blood Performing Organization Address City/State/Zipcode Phone Number [address] [address] [phone] CENTER CBC with platelet count + automated diff (12/09/2017 4:35 AM CDT)Only the most recent of3 resultswithin the time period is included. WBC 6.7 3.5 - 10.5 K/L [facility] RBC 4.08 3.93 - 5.22 M/L [facility] Hemoglobin 11.4 11.2 - 15.7 GM/DL [facility] Hematocrit 37.6 34.1 - 44.9 % [facility] MCV 92.2 79.4 - 94.8 fL [facility] MCH 27.9 25.6 - 32.2 pg [facility] MCHC 30.3 (L) 32.2 - 35.5 GM/DL [facility] RDW 14.6 (H) 11.7 - 14.4 % [facility] Platelets 192 150 - 450 K/CU MM [facility] MPV 11.9 9.4 - 12.3 fL [facility] nRBC 0 0 - 0 /100 WBC [facility] % Neutros 69 % [facility] % Lymphs 25 % [facility] % Monos 5 % [facility] % Eos 2 % [facility] % Baso 0 % [facility] # Neutros 4.59 1.56 - 6.13 K/L [facility] # Lymphs 1.65 1.18 - 3.74 K/L [facility] # Monos 0.30 0.24 - 0.36 K/L [facility] # Eos 0.11 0.04 - 0.36 K/L [facility] # Baso 0.01 0.01 - 0.08 K/L [facility] Immature Granulocytes-Relative 0 0 - 1 % [facility] Specimen Blood Performing Organization Address City/[facility]/Zipcode Phone Number [facility] [address] [place] [address] [phone] [place] Basic Metabolic Panel (12/09/2017 4:35 AM CDT)Only the most recent of2 resultswithin the time period is included. Sodium 140 136 - 145 meq/L [facility] Potassium 3.9 3.5 - 5.1 meq/L [facility] Chloride 105 98 - 107 meq/L [facility] CO2 28 22 - 29 meq/L [facility] BUN 11 7 - 21 mg/dL [facility] Creatinine 0.62 0.57 - 1.25 mg/dL [facility] Glucose 107 (H) 70 - 105 mg/dL [facility] Calcium 8.8 8.4 - 10.2 mg/dL [facility] EGFR 106Comment: ESTIMATED GFR IS mL/min/1.73 sq m [facility] NOT ACCURATE CREATININE [facility] CLEARANCE IN PREDICTING GLOMERULAR FILTRATION RATE. ESTIMATED GFR IS NOT APPLICABLE FOR DIALYSIS PATIENTS. Specimen Blood Performing Organization Address [facility]/Zipcode Phone Number [address] [address] [place] MR brain without IV contrast (12/08/2017 8:00 PM CDT) Narrative Performed At FINAL REPORT [facility] MRI Brain without contrast Clinical History: Stroke [...] MD Report Verified Date/Time:12/08/2017 20:02:46 Reading Location: [facility] Radiology Reading Room Procedure Note Interface, [...] Report Verified Date/Time: 12/08/2017 20:02:46 Reading Location: [facility] Radiology Reading Room Performing Organization Address City/State/Zipcode Phone Number [facility] MRA neck without IV contrast (12/08/2017 8:00 PM CDT) Narrative Performed At [facility]AL RE[facility] MRA Head CLINICAL HISTORY: Stroke TECHNIQUE: MRA of the head utilizing 3-D tgqm-xt-crnasp technique, with 3-D reconstructions. COMPARISON: None FINDINGS: There is no evidence of intracranial aneurysm, focal stenosis, or major branch vessel occlusion. There is a origin of the right posterior cerebral artery. IMPRESSION: No evidence for a major [place] proximal branch vessel occlusion. MRA Neck CLINICAL HISTORY: Stroke TECHNIQUE: MRA of the neck utilizing 2-D and 3-D mgsj-vm-wnoykd technique, with 3-D reconstructions. COMPARISON: None FINDINGS: The carotid arteries in the neck are patent including their bifurcations. There is antegrade flow in the vertebral arteries in the neck. IMPRESSION: No evidence of hemodynamically significant stenosis in the cervical carotid or vertebral arteries by NASCET criteria. Signed: Madeleine Mendoza MD Report Verified Date/Time:12/08/2017 20:13:50 Reading Location: [facility] Radiology Reading Room Procedure Note Interface, External Ris In - 12/08/2017 8:15 PM CDT FINAL REPORT MRA Head CLINICAL HISTORY: Stroke TECHNIQUE: MRA of the head utilizing 3-D brwq-et-jtvaac technique, with 3-D reconstructions. COMPARISON: None FINDINGS: There is no evidence of intracranial aneurysm, focal stenosis, or major branch vessel occlusion. There is a origin of the right posterior cerebral artery. IMPRESSION: No evidence for a major [place] proximal branch vessel occlusion. MRA Neck CLINICAL HISTORY: Stroke TECHNIQUE: MRA of the neck utilizing 2-D and 3-D ugfl-rc-nsswbc technique, with 3-D reconstructions. COMPARISON: None FINDINGS: The carotid arteries in the neck are patent including their bifurcations. There is antegrade flow in the vertebral arteries in the neck. IMPRESSION: No evidence of hemodynamically significant stenosis in the cervical carotid or vertebral arteries by NASCET criteria. Signed: Madeleine Mendoza MD Report Verified Date/Time: 12/08/2017 20:13:50 Reading Location: [facility] Radiology Reading Room Performing Organization Address City/State/Zipcode Phone Number [employer] MRA head without IV contrast (12/08/2017 8:00 PM CDT) Narrative Performed At [facility] MRA Head CLINICAL HISTORY: Stroke TECHNIQUE: MRA of the head utilizing 3-D ubkk-rs-nvlcfm technique, with 3-D reconstructions. COMPARISON: None FINDINGS: There is no evidence of intracranial aneurysm, focal stenosis, or major branch vessel occlusion. There is a origin of the right posterior cerebral artery. IMPRESSION: No evidence for a major [place] proximal branch vessel occlusion. MRA Neck CLINICAL HISTORY: Stroke TECHNIQUE: MRA of the neck utilizing 2-D and 3-D citc-yf-cjnkgs technique, with 3-D reconstructions. COMPARISON: None FINDINGS: The carotid arteries in the neck are patent including their bifurcations. There is antegrade flow in the vertebral arteries in the neck. IMPRESSION: No evidence of hemodynamically significant stenosis in the cervical carotid or vertebral arteries by NASCET criteria. Signed: Madeleine Mendoza MD Report Verified Date/Time:12/08/2017 20:13:50 Reading Location: [facility] Radiology Reading Room Procedure Note Interface, External Ris In - 12/08/2017 8:15 PM CDT FINAL REPORT MRA Head CLINICAL HISTORY: Stroke TECHNIQUE: MRA of the head utilizing 3-D gojf-pg-cbdedf technique, with 3-D reconstructions. COMPARISON: None FINDINGS: There is no evidence of intracranial aneurysm, focal stenosis, or major branch vessel occlusion. There is a origin of the right posterior cerebral artery. IMPRESSION: No evidence for a major [place] proximal branch vessel occlusion. MRA Neck CLINICAL HISTORY: Stroke TECHNIQUE: MRA of the neck utilizing 2-D and 3-D askb-zv-irodaw technique, with 3-D reconstructions. COMPARISON: None FINDINGS: The carotid arteries in the neck are patent including their bifurcations. There is antegrade flow in the vertebral arteries in the neck. IMPRESSION: No evidence of hemodynamically significant stenosis in the cervical carotid or vertebral arteries by NASCET criteria. Signed: Madeleine Mendoza MD Report Verified Date/Time: 12/08/2017 20:13:50 Reading Location: [facility] Radiology Reading Room Performing Organization Address City/State/Zipcode Phone Number [facility] ECHOCARDIOGRAM REPORT - SCAN (12/08/2017 6:50 PM CDT) Narrative Performed At 2D Echo W/Doppler(CW/PW/Color) with saline (12/08/2017 11:58 AM CDT) Ejection Fraction [facility] MKCKESSON CPA Narrative Performed At Transthoracic Echocardiography Report (TTE) [facility]ON [facility] Demographics Patient NameAGUILAR, Date of Study12/08/2017 GIOVANNY Gender Female Visit [id number] Race Unknown [id number] Number Date of 1975 Referring PhysicianAndrea Mendez Age 42 year(s) SonographerOscar Steve, [facility] Abstract Clerk Jeremi Spearsting Frederic Martel MD Physician Procedure Type of [...] Study 12/08/2017 GIOVANNY Gender Female Visit Number [id number] Race Unknown Room Number 7401 Number Date of 1975 Referring Physician Andrea Mendez Age 42 year(s) Equipment Installer Reji Wilson [facility] Abstract Clerk Jeremi Rodriguez Interpreting Frederic Martel MD Physician [...] LVOT Area: 3.46 cm^2 Performing Organization Address City/State/[facility] Centercode Phone Number [facility] [employer] AngelON CPA Carotid doppler bilateral (12/08/2017 11:10 AM CDT) Ejection Fraction [facility] CPACS Impressions Performed At Right Impression [facility] 1. The internal, common and external carotid [...] Performed At LAB - Carotid Duplex Study [facility] Demographics Patient Name Ty HARRISON of Study12/08/2017 [id number] Visit Number [id number] Gender Female Accession Number [id number] Date of Birth1975 [facility] Room [id number] Physician SonographerFernando GoldbergInterpreting Rajeev Jeff RVT PhysicianMD, RPVI Procedure Type of Study: Cerebral: Carotid, [...] of Study 12/08/2017 Age 42 Visit Number [id number] Gender Female Accession Number [id number] Date of 1975 Referring Adnrea Roberson Room Number 7401 Physician Equipment Installer Fernando Goldberg Interpreting Rajeev Jeff [facility] Physician , SCOTT Procedure Type of Study: [...] Additional Measurements:ICAPSV/CCAPSV 1.01.ICAEDV/CCAEDV 0.71. Performing Organization Address City/State/Zipcode Phone Number [facility] CPACS Troponin I (12/08/2017 9:01 AM CDT)Only the most recent of2 resultswithin the time period is included. Troponin I <0.01 0.00 - 0.03 ng/mL [facility] Specimen Blood Narrative Performed At [facility] Troponin I (TnI) levels must be interpreted [...] disease, and persistent tachyarrhythmia. Performing Organization Address City/[facility]/Zipcode Phone Number [address] [address] [place] Urine culture (12/08/2017 3:39 AM CDT) Result No growth [facility] Specimen Urine - Urine, Straight Catheter Performing Organization Address [facility]/Zipcode Phone Number [address] [address] [place] Rapid drug screen, urine (12/08/2017 3:38 AM CDT) Barbiturate Screen Negative Negative [facility] Benzodiazepine Screen Negative Negative [facility] Cocaine (Metab.) Screen Negative Negative [facility] Methadone Screen Negative Negative [facility] Opiate Screen Negative Negative [facility] Cannabinoid Screen Negative Negative [facility] Amph/Methamph Screen Negative Negative [facility] Phencyclidine Screen Negative Negative [facility] Oxycodone Screen Negative Negative [facility] Specimen Urine - Urine, Sterile Collection Narrative Performed At [facility] DRUGCUTOFF CONC. Cocaine 300 ng/mL Fbtapkzimzp14 ng/mL Grkegbgtdcauwe463 ng/mL Barbiturate 200 ng/mL Ngtdyjqpwxlad51 ng/mL Cwtbmk524 ng/mL Methadone 300 ng/mL Amphetamine/ 1000 ng/mL Methamphetamine Oxycodone 300 ng/mL This assay provides an unconfirmed qualitative test result for the clinical management of patients in emergency situations. Chain of custody not maintained. Some jups-qlx-manyyos medications, as well as adulterants, may cause inaccurate results. Clinical correlation should be applied. A more comprehensive drug screen or confirmation of a detected drug may be performed upon request. Performing Organization Address City/State/Zipcode Phone Number [facility] [address] [place] [address] [phone] CENTER Urinalysis w/ Microscopic (12/08/2017 3:38 AM CDT) Color, UA Yellow [facility] Clarity, UA Clear [facility] Specific [place], UA 1.039 (H) 1.001 - 1.035 [facility] pH, UA 5.5 5.0 - 8.0 [facility] Protein, UA 10 mg/dL (A) Negative [facility] Glucose, UA Negative Negative [facility] Ketones, UA Negative Negative [facility] Bilirubin, UA Negative Negative [facility] Blood, UA Small (A) Negative [facility] Nitrite, UA Negative Negative [facility] Leukocytes, UA Negative Negative [facility] Urobilinogen, UA 0.2 0.2 - 1.0 mg/dL [facility] RBC, UA 1 /HPF [facility] WBC, UA <1 /HPF [facility] Mucus Occasional [facility] Squam Epithel, UA <1 /HPF [facility] Crystals, Urine Rare [facility] Specimen Source Urine, Sterile Collection [facility] Specimen Urine - Urine, Sterile Collection Performing Organization Address [facility]erc[facility]i Phone Number [address] [address] [place] TSH/Free T4 If Indicated (12/08/2017 3:37 AM CDT) TSH 0.66 0.35 - 4.94 uIU/mL [facility] Specimen Blood - Arm, Left Performing Organization Address [facility] Phone Number [address] [address] [place] Hemoglobin A1c - Fasting (12/08/2017 3:37 AM CDT) Hemoglobin A1C 6.6 (H) 4.3 - 6.1 % [facility] Specimen Blood - Arm, Left Narrative Performed At Fasting [facility] Performing Organization Address [facility] Phone Number [address] [address] CENTER Fasting lipid panel (12/08/2017 3:37 AM CDT) Triglycerides 83Comment: Specimen slightly mg/dL [facility] Cholesterol 140Comment: Specimen slightly mg/dL [facility] HDL 38 mg/dL [facility] LDL Calculated 85 mg/dL [facility] Specimen Blood - Arm, Left Narrative Performed At [facility] Triglyceride Reference Range: Low Risk <150 [id number] High Risk 200-499 Very High Risk>=500 Cholesterol Reference Range: Low Risk <200 Aoaelbpnrq077-243 High Risk>240 HDL Cholesterol Reference Range: Low Risk >=60 High Risk <40 LDL Cholesterol Reference Range: Optimal<100 Near Biwzqih964-630 Vpofqfxljl824-380 Zvdh284-943 Very High >=190 Fasting Performing Organization Address [facility] Centercode Phone Number [facility] [address] [address] CENTER Vitamin B12 and Folate (12/07/2017 11:19 PM CDT) Vitamin B12 688 213 - 816 pg/mL [facility] Folate 12.1 >=7.0 ng/mL [facility] Specimen Blood - Arm, Left Performing Organization Address City/[facility] Centercode Phone Number [address] [address] [phone] [place] Prothrombin time/INR (12/07/2017 11:19 PM CDT) Protime 15.8 (H) 11.7 - 14.7 seconds [facility] INR 1.3 <=5.9 [facility] Specimen Blood - Arm, Left Narrative Performed At [facility] RECOMMENDED COUMADIN/WARFARIN INR THERAPY RANGES STANDARD DOSE: 2.0 - 3.0 Includes: PROPHYLAXIS for venous thrombosis, systemic embolization; TREATMENT for venous thrombosis and/or pulmonary embolus. HIGH RISK: Target INR is 2.5-3.5 for patients with mechanical heart valves. Performing Organization Address City/[facility] Centercode Phone Number [address] [address] [phone] [place] Hepatic function panel (12/07/2017 11:19 PM CDT) Protein, Total 6.8 6.0 - 8.3 gm/dL [facility] Albumin 3.7 3.5 - 5.0 g/dL [facility] Total Bilirubin 0.4 0.2 - 1.2 mg/dL [facility] Bilirubin, Direct 0.2 0.1 - 0.5 mg/dL [facility] Alkaline Phosphatase 75 40 - 150 U/L [facility] AST 30 5 - 34 U/L [facility] ALT 17 6 - 55 U/L [facility] Specimen Blood - Arm, Left Performing Organization Address City/State/Zipcode Phone Number [facility] [address] [place] [address] CENTER XR chest 1 view portable / bedside (12/07/2017 9:45 PM CDT) Narrative Performed At FINAL REPORT GE RIS Clinical History: Stroke workup Comparison Study: None Findings:The cardiac silhouette is enlarged. The lungs are within normal limits.The pleural spaces are clear.No significant bony or soft tissue abnormalities are seen. Impression: Cardiomegaly. Signed: Wellington Goodwin MD Report Verified Date/Time:12/07/2017 21:51:29 Reading Location: [address] Consult Reading Room Procedure Note Interface, External Ris In - 12/07/2017 9:53 PM CDT FINAL REPORT Clinical History: Stroke workup Comparison Study: None Findings: The cardiac silhouette is enlarged. The lungs are within normal limits. The pleural spaces are clear. No significant bony or soft tissue abnormalities are seen. Impression: Cardiomegaly. Signed: Wellington Goodwin MD Report Verified Date/Time: 12/07/2017 21:51:29 Reading Location: [facility] C013 Consult Reading Room Performing Organization Address City/State/Zipcode Phone Number [facility] after 06/18/2017 Insurance Payer Benefit Plan / Group Subscriber ID Type Phone Address CARE IMPROVEMENT MEDICARE CARE IMPROVEMENT PLUS xxxxxxxxx D CARE MEDICAID [place]ICA[place] xxxxxxxxx Medicaid (Home) [place] [address] Advance Directives For more information, please contact:[address] [phone] Code Status Date Activated Date Inactivated Comments Full Code 05/02/2017 9:56 PM 05/04/2017 2:47 PM This code status was determined by: Patient Full Code 04/06/2017 11:35 PM 04/15/2017 8:31 PM This code status was determined by: Patient
--- OUTSIDE RECORDS SUMMARY | 2018-06-19 10:07 | XMS REPORT ---
:1975 [facility] [address] [place] [address] Care Team Providers Name Role Phone JONATAN, [...] Value Reference Range Comments CULTURE (BEAKER) (test hhpf=3691) No growth POCT-GLUCOSE [id number] 08:21:00 Test Item Value Reference Range Comments POC-GLUCOSE METER (BEAKER) 99 mg/dL 70-110 TESTED AT [address] (test plny=2693) [place] [id number] POCT-GLUCOSE [id number] 06:14:00 Test Item Value Reference Range Comments POC-GLUCOSE METER (BEAKER) 105 mg/dL 70-110 TESTED AT [address] (test huqw=4694) [place] [id number] BASIC METABOLIC [id number] 05:56:00 Test Item Value Reference Range Comments SODIUM (BEAKER) (test 140 meq/L 136-145 txzy=313) POTASSIUM (BEAKER) (test 3.9 meq/L 3.5-5.1 gaut=589) CHLORIDE (BEAKER) (test 105 meq/L 98-107 uoed=396) CO2 (BEAKER) (test 28 meq/L 22-29 euol=257) BLOOD UREA NITROGEN 11 mg/dL 7-21 (BEAKER) (test glob=281) CREATININE (BEAKER) (test 0.62 mg/dL 0.57-1.25 hssq=205) GLUCOSE RANDOM (BEAKER) 107 mg/dL 70-105 (test tnpd=447) CALCIUM (BEAKER) (test 8.8 mg/dL 8.4-10.2 xmmx=680) EGFR (BEAKER) (test 106 mL/min/1.73 sq m ESTIMATED GFR IS NOT zwmk=6323) ACCURATE CREATININE CLEARANCE IN PREDICTING GLOMERULAR FILTRATION RATE. ESTIMATED GFR IS NOT APPLICABLE FOR DIALYSIS PATIENTS. CBC W/PLT COUNT & AUTO [id number] 05:15:00 Test Item Value Reference Range Comments WHITE BLOOD CELL COUNT (BEAKER) (test hjcp=698) 6.7 K/ L 3.5-10.5 RED BLOOD CELL COUNT (BEAKER) (test lwtx=782) 4.08 M/ L 3.93-5.22 HEMOGLOBIN (BEAKER) (test qzxg=654) 11.4 GM/DL 11.2-15.7 HEMATOCRIT (BEAKER) (test aeza=630) 37.6 % 34.1-44.9 MEAN CORPUSCULAR VOLUME (BEAKER) (test oxxe=433) 92.2 fL 79.4-94.8 MEAN CORPUSCULAR HEMOGLOBIN (BEAKER) (test 27.9 pg 25.6-32.2 kibf=903) MEAN CORPUSCULAR HEMOGLOBIN CONC (BEAKER) (test 30.3 GM/DL 32.2-35.5 yifa=899) RED CELL DISTRIBUTION WIDTH (BEAKER) (test 14.6 % 11.7-14.4 fcff=449) PLATELET COUNT (BEAKER) (test rygs=126) 192 K/CU MM 150-450 MEAN PLATELET VOLUME (BEAKER) (test dztt=061) 11.9 fL 9.4-12.3 NUCLEATED RED BLOOD CELLS (BEAKER) (test 0 /100 WBC 0-0 uwii=211) NEUTROPHILS RELATIVE PERCENT (BEAKER) (test 69 % edhv=368) LYMPHOCYTES RELATIVE PERCENT (BEAKER) (test 25 % cngj=625) MONOCYTES RELATIVE PERCENT (BEAKER) (test 5 % lstb=475) EOSINOPHILS RELATIVE PERCENT (BEAKER) (test 2 % tgyf=041) BASOPHILS RELATIVE PERCENT (BEAKER) (test 0 % krhe=165) NEUTROPHILS ABSOLUTE COUNT (BEAKER) (test 4.59 K/ L 1.56-6.13 mgav=748) LYMPHOCYTES ABSOLUTE COUNT (BEAKER) (test 1.65 K/ L 1.18-3.74 odbz=080) MONOCYTES ABSOLUTE COUNT (BEAKER) (test 0.30 K/ L 0.24-0.36 crpv=920) EOSINOPHILS ABSOLUTE COUNT (BEAKER) (test 0.11 K/ L 0.04-0.36 hqon=092) BASOPHILS ABSOLUTE COUNT (BEAKER) (test 0.01 K/ L 0.01-0.08 divb=868) IMMATURE GRANULOCYTES-RELATIVE PERCENT (BEAKER) 0 % 0-1 (test palm=0693) POCT-GLUCOSE [id number] 00:23:00 Test Item Value Reference Range Comments POC-GLUCOSE METER (BEAKER) 111 mg/dL 70-110 TESTED AT [facility] [address] [place] [address] (test ysyg=3722) [facility] [address] MR, MRA, BRAIN, WITHOUT [id number] 20:13:00Reason for exam:-> Ischemic Stroke EvaluationFINAL REPORT MRA Head CLINICAL HISTORY: Stroke TECHNIQUE: MRA of the head utilizing 3-D awau-ej-nfjtmz technique, with 3-D reconstructions. COMPARISON: None FINDINGS: There is noevidence of intracranial aneurysm, focal stenosis, or major branch vessel occlusion. There is a origin of the right posterior cerebral artery. IMPRESSION: No evidence for a major [place] Willis[place]ximal branch vessel occlusion. MRA Neck CLINICAL HISTORY: Stroke TECHNIQUE: MRA of the neck utilizing 2-D and 3-D csjj-ag-wgbyjj technique, with 3-D reconstructions. COMPARISON: None FINDINGS: Thecarotid arteries in the neck are patent including their bifurcations. There is antegrade flow in the vertebral arteries in the neck. IMPRESSION: No evidence of hemodynamically significant stenosis in the cervical carotid or vertebral arteries by NASCET criteria. Signed: Madeleine Mendoza MDReport Verified Date/Time: 12/08/2017 20:13:50 Reading Location: [facility] Radiology Reading Room MR, MRA, NECK, WITHOUT IV [id number] 20:13: 00Reason for exam:->Ischemic Stroke EvaluationFINAL REPORT MRA Head CLINICAL HISTORY: Stroke TECHNIQUE: MRA of the head utilizing 3-D sstu-de-mwgbyu technique, with 3-D reconstructions. COMPARISON: None FINDINGS: There is noevidence of intracranial aneurysm, focal stenosis, or major branch vessel occlusion. There is a origin of the right posterior cerebral artery. IMPRESSION: No evidence for a major [place] of Willis[place]ximal branch vessel occlusion. MRA Neck CLINICAL HISTORY: Stroke TECHNIQUE: MRA of the neck utilizing 2-D and 3-D fugb-uw-okfexd technique, with 3-D reconstructions. COMPARISON: None FINDINGS: Thecarotid arteries in the neck are patent including their bifurcations. There is antegrade flow in the vertebral arteries in the neck. IMPRESSION: No evidence of hemodynamically significant stenosis in the cervical carotid or vertebral arteries by NASCET criteria. Signed: Madeleine Mendoza Verified Date/Time: 12/08/2017 20:13: 50 Reading Location: [facility] Reading Room MR, BRAIN, WITHOUT [id number] 20:02:00Reason for exam:->StrokeWhat is the patient's sedation [...] Verified Date/ Time: 12/08/2017 20:02:46 Reading Location: [facility] Radiology Reading Room 08:02 PMPOCT-GLUCOSE [id number] 15:23:00 Test Item Value Reference Range Comments POC-GLUCOSE METER (MILAGROS) 106 mg/dL 70-110 TESTED AT [address] (test vmtg=8747) [facility] [address] HEMOGLOBIN [id number] 11:57:00 Test Item Value Reference Range Comments HEMOGLOBIN A1C (BEAKER) (test ozrm=806) 6.6 % 4.3-6.1 FastingTROPONIN [id number] 09:50:00 Test Item Value Reference Range Comments TROPONIN I (BEAKER) (test wrav=988) < ng/mL 0.00-0.03 Troponin I (TnI) levels [...] acidosis, acute neurological disease, and persistent tachyarrhythmia.POCT-GLUCOSE [id number] 06:23:00 Test Item Value Reference Range Comments POC-GLUCOSE METER (BEAKER) 110 mg/dL 70-110 TESTED AT [address] (test ketl=7859) [place] [id number] POCT-GLUCOSE [id number] 06:15:00 Test Item Value Reference Range Comments POC-GLUCOSE METER (BEAKER) 149 mg/dL 70-110 TESTED AT [address] (test inck=3853) [facility] [address] VITAMIN B12 AND [id number] 05:50:00 Test Item Value Reference Range Comments VITAMIN B12 (BEAKER) (test unyc=041) 688 pg/mL 213-816 FOLATE (BEAKER) (test ubwb=195) 12.1 ng/mL >=7.0 TSH/FREE T4 IF [id number] 05:29:00 Test Item Value Reference Range Comments THYROID STIMULATING HORMONE (BEAKER) (test 0.66 uIU/mL 0.35-4.94 rcew=345) BASIC METABOLIC [id number] 05:11:00 Test Item Value Reference Range Comments SODIUM (BEAKER) (test 140 meq/L 136-145 nqse=391) POTASSIUM (BEAKER) (test 4.3 meq/L 3.5-5.1 Specimen slightly ruwl=607) hemolyzed CHLORIDE (BEAKER) (test 105 meq/L 98-107 sjxe=212) CO2 (BEAKER) (test 27 meq/L 22-29 txvu=739) BLOOD UREA NITROGEN 8 mg/dL 7-21 (BEAKER) (test oygt=966) CREATININE (BEAKER) (test 0.67 mg/dL 0.57-1.25 Specimen slightly tuye=480) hemolyzed GLUCOSE RANDOM (BEAKER) 136 mg/dL 70-105 (test tfdt=810) CALCIUM (BEAKER) (test 8.7 mg/dL 8.4-10.2 azqn=225) EGFR (BEAKER) (test 97 mL/min/1.73 sq m ESTIMATED GFR IS NOT mwyn=1348) ACCURATE CREATININE CLEARANCE IN PREDICTING GLOMERULAR FILTRATION RATE. ESTIMATED GFR IS NOT APPLICABLE FOR DIALYSIS PATIENTS. FastingLIPID [id number] 05:11:00 Test Item Value Reference Range Comments TRIGLYCERIDES (BEAKER) (test 83 mg/dL Specimen slightly hemolyzed vfup=277) CHOLESTEROL (BEAKER) (test 140 mg/dL Specimen slightly hemolyzed plhh=940) HDL CHOLESTEROL (BEAKER) (test 38 mg/dL tdfu=024) LDL CHOLESTEROL CALCULATED 85 mg/dL (BEAKER) (test ritx=611) Triglyceride Reference Range: Low Risk <150 Borderline 150- 199 High Risk 200-499 Very High Risk >=500Cholesterol Reference Range: Low Risk <200 Borderline 200-239 High Risk > 240HDL Cholesterol Reference Range: Low Risk >=60 High Risk <40LDL Cholesterol Reference Range: Optimal <100 Near Optimal 100-129 Borderline 130-159 High 160-189 Very High >=190 FastingRAPID DRUG SCREEN, [id number] 04:34:00 Test Item Value Reference Range Comments BARBITURATE URINE (BEAKER) (test qvok=381) Negative Negative BENZODIAZEPINE SCREEN URINE (BEAKER) (test Negative Negative vops=379) COCAINE (METAB.) SCREEN (BEAKER) (test jrfn=6032) Negative Negative METHADONE SCREEN (BEAKER) (test nwga=3716) Negative Negative OPIATE SCREEN URINE (BEAKER) (test ppxg=063) Negative Negative CANNABINOID SCREEN URINE (BEAKER) (test xqak=746) Negative Negative AMPH/METHAMPH SCREEN (BEAKER) (test pnph=4953) Negative Negative PHENCYCLIDINE SCREEN URINE (BEAKER) (test gwyi=878) Negative Negative OXYCODONE SCREEN URINE (BEAKER) (test behd=6345) Negative Negative DRUG CUTOFF CONC.Cocaine 300 ng/mL Cannabinoid 50 ng/mL Benzodiazepine 200 ng/mLBarbiturate 200 ng/ mLPhencyclidine 25 ng/mLOpiate 300 ng/mLMethadone 300 ng/mLAmphetamine/ 1000 ng/mL MethamphetamineOxycodone 300 ng/mLThis assay provides an unconfirmed qualitative test result for the clinical management of patients in emergency situations. Chain of custody not maintained. Some lkem-vfl-vxkclua medications, as well as adulterants, may cause inaccurate results. Clinical correlation should be applied. A more comprehensive drug screen or confirmation of a detected drug may be performed upon request.URINALYSIS W/ [id number] 04:09:00 Test Item Value Reference Range Comments COLOR (BEAKER) (test fsqf=115) Yellow CLARITY (BEAKER) (test pljc=135) Clear SPECIFIC GRAVITY UA (BEAKER) (test 1.039 1.001-1.035 grau=395) PH UA (BEAKER) (test lavl=189) 5.5 5.0-8.0 PROTEIN UA (BEAKER) (test 10 mg/dL Negative dwjo=251) GLUCOSE UA (BEAKER) (test Negative Negative driz=725) KETONES UA (BEAKER) (test Negative Negative azhu=010) BILIRUBIN UA (BEAKER) (test Negative Negative kylm=384) BLOOD UA (BEAKER) (test oblm=302) Small Negative NITRITE UA (BEAKER) (test Negative Negative wuvl=632) LEUKOCYTE ESTERASE UA (BEAKER) Negative Negative (test vgae=762) UROBILINOGEN UA (BEAKER) (test 0.2 mg/dL 0.2-1.0 kqkx=923) RBC UA (BEAKER) (test nctn=133) 1 /HPF WBC UA (BEAKER) (test qytr=916) < /HPF MUCUS (BEAKER) (test brqf=7037) Occasional SQUAMOUS EPITHELIAL (BEAKER) (test < /HPF zeqc=425) CRYSTALS, URINE (BEAKER) (test Rare tuur=4745) SOURCE(BEAKER) (test wkjr=3242) Urine, Sterile Collection CBC W/PLT COUNT & AUTO [id number] 03:54:00 Test Item Value Reference Range Comments WHITE BLOOD CELL COUNT (BEAKER) (test mnos=212) 7.2 K/ L 3.5-10.5 RED BLOOD CELL COUNT (BEAKER) (test cfsi=550) 4.10 M/ L 3.93-5.22 HEMOGLOBIN (BEAKER) (test tyny=191) 11.6 GM/DL 11.2-15.7 HEMATOCRIT (BEAKER) (test agrh=606) 37.5 % 34.1-44.9 MEAN CORPUSCULAR VOLUME (BEAKER) (test xfjr=382) 91.5 fL 79.4-94.8 MEAN CORPUSCULAR HEMOGLOBIN (BEAKER) (test 28.3 pg 25.6-32.2 xsxe=111) MEAN CORPUSCULAR HEMOGLOBIN CONC (BEAKER) (test 30.9 GM/DL 32.2-35.5 xees=029) RED CELL DISTRIBUTION WIDTH (BEAKER) (test 14.6 % 11.7-14.4 vqpc=087) PLATELET COUNT (BEAKER) (test axmh=480) 194 K/CU MM 150-450 MEAN PLATELET VOLUME (BEAKER) (test icjq=171) 11.7 fL 9.4-12.3 NUCLEATED RED BLOOD CELLS (BEAKER) (test 0 /100 WBC 0-0 nseq=877) NEUTROPHILS RELATIVE PERCENT (BEAKER) (test 73 % xdur=979) LYMPHOCYTES RELATIVE PERCENT (BEAKER) (test 21 % vpgf=646) MONOCYTES RELATIVE PERCENT (BEAKER) (test 4 % ylwc=471) EOSINOPHILS RELATIVE PERCENT (BEAKER) (test 2 % ibcj=170) BASOPHILS RELATIVE PERCENT (BEAKER) (test 0 % oedk=005) NEUTROPHILS ABSOLUTE COUNT (BEAKER) (test 5.22 K/ L 1.56-6.13 srnc=901) LYMPHOCYTES ABSOLUTE COUNT (BEAKER) (test 1.47 K/ L 1.18-3.74 frlf=379) MONOCYTES ABSOLUTE COUNT (BEAKER) (test 0.31 K/ L 0.24-0.36 ussq=671) EOSINOPHILS ABSOLUTE COUNT (BEAKER) (test 0.13 K/ L 0.04-0.36 debg=234) BASOPHILS ABSOLUTE COUNT (BEAKER) (test 0.01 K/ L 0.01-0.08 jiim=325) IMMATURE GRANULOCYTES-RELATIVE PERCENT (BEAKER) 0 % 0-1 (test akkm=9500) TROPONIN [id number] 23:56:00 Test Item Value Reference Range Comments TROPONIN I (BEAKER) (test sskh=662) < ng/mL 0.00-0.03 Troponin I (TnI) levels [...] acute neurological disease, and persistent tachyarrhythmia.HEPATIC FUNCTION [id number] 23:49: 00 Test Item Value Reference Range Comments TOTAL PROTEIN (BEAKER) (test wluj=896) 6.8 gm/dL 6.0-8.3 ALBUMIN (BEAKER) (test noxk=1662) 3.7 g/dL 3.5-5.0 BILIRUBIN TOTAL (BEAKER) (test bvnj=730) 0.4 mg/dL 0.2-1.2 BILIRUBIN DIRECT (BEAKER) (test kbdm=179) 0.2 mg/dL 0.1-0.5 ALKALINE PHOSPHATASE (BEAKER) (test tknw=703) 75 U/L 40-150 AST (SGOT) (BEAKER) (test csds=040) 30 U/L 5-34 ALT (SGPT) (BEAKER) (test teia=066) 17 U/L 6-55 PROTHROMBIN [id number] 23:40:00 Test Item Value Reference Range Comments PROTIME (BEAKER) (test dlhd=257) 15.8 seconds 11.7-14.7 INR (BEAKER) (test uxpk=196) 1.3 <=5.9 RECOMMENDED COUMADIN/WARFARIN INR THERAPY RANGESSTANDARD DOSE: 2.0 - 3.0 Includes: PROPHYLAXIS forvenous thrombosis, systemic embolization; TREATMENT for venous thrombosis and/or pulmonary embolus.HIGH RISK: Target INR is 2.5-3.5 for patients with mechanical heart valves.CBC W/PLT COUNT & AUTO [id number] 23:27:00 Test Item Value Reference Range Comments WHITE BLOOD CELL COUNT (BEAKER) (test kewn=310) 8.2 K/ L 3.5-10.5 RED BLOOD CELL COUNT (BEAKER) (test bxqv=241) 4.18 M/ L 3.93-5.22 HEMOGLOBIN (BEAKER) (test koqq=245) 11.9 GM/DL 11.2-15.7 HEMATOCRIT (BEAKER) (test bvyt=696) 38.2 % 34.1-44.9 MEAN CORPUSCULAR VOLUME (BEAKER) (test lppc=443) 91.4 fL 79.4-94.8 MEAN CORPUSCULAR HEMOGLOBIN (BEAKER) (test 28.5 pg 25.6-32.2 idru=483) MEAN CORPUSCULAR HEMOGLOBIN CONC (BEAKER) (test 31.2 GM/DL 32.2-35.5 sxis=715) RED CELL DISTRIBUTION WIDTH (BEAKER) (test 14.6 % 11.7-14.4 alvd=135) PLATELET COUNT (BEAKER) (test xlyf=542) 199 K/CU MM 150-450 MEAN PLATELET VOLUME (BEAKER) (test dmhe=357) 11.4 fL 9.4-12.3 NUCLEATED RED BLOOD CELLS (BEAKER) (test 0 /100 WBC 0-0 fuat=734) NEUTROPHILS RELATIVE PERCENT (BEAKER) (test 74 % rwey=578) LYMPHOCYTES RELATIVE PERCENT (BEAKER) (test 20 % zdrs=019) MONOCYTES RELATIVE PERCENT (BEAKER) (test 4 % skun=876) EOSINOPHILS RELATIVE PERCENT (BEAKER) (test 2 % buum=986) BASOPHILS RELATIVE PERCENT (BEAKER) (test 0 % qngm=546) NEUTROPHILS ABSOLUTE COUNT (BEAKER) (test 6.05 K/ L 1.56-6.13 mrto=323) LYMPHOCYTES ABSOLUTE COUNT (BEAKER) (test 1.64 K/ L 1.18-3.74 kwij=829) MONOCYTES ABSOLUTE COUNT (BEAKER) (test 0.33 K/ L 0.24-0.36 fvoq=506) EOSINOPHILS ABSOLUTE COUNT (BEAKER) (test 0.12 K/ L 0.04-0.36 qpoi=122) BASOPHILS ABSOLUTE COUNT (BEAKER) (test 0.01 K/ L 0.01-0.08 kpni=537) IMMATURE GRANULOCYTES-RELATIVE PERCENT (BEAKER) 1 % 0-1 (test cssb=3286) RAD, CHEST, 1 VIEW, NON [id number] 21:51:00Reason for exam:->Stroke work up.Is the patient ?->UnknownShould this be performed at the bedside?- >YesFINAL REPORT Clinical History: Stroke workup Comparison Study: None Findings: The cardiac silhouette is enlarged. The lungs are within normal limits. The pleural spaces are clear. No significant bony or soft tissue abnormalities are seen. Impression: Cardiomegaly. Signed: Wellington Goodwin MDReport Verified Date/Time: 12/07/2017 21:51:29 Reading Location: [address] Consult Reading Room POCT-GLUCOSE [id number] 11:34:00 Test Item Value Reference Range Comments POC-GLUCOSE METER (BEAKER) 84 mg/dL 70-110 TESTED AT [facility] [address] [facility] (test wluo=2437) [facility] [address] [id number] 08:58:00 Test Item Value Reference Range Comments PHOSPHORUS (BEAKER) (test tlku=894) 4.4 mg/dL 2.3-4.7 [id number] 08:58:00 Test Item Value Reference Range Comments MAGNESIUM (BEAKER) (test bbob=359) 2.3 mg/dL 1.6-2.6 BASIC METABOLIC [id number] 08:58:00 Test Item Value Reference Range Comments SODIUM (BEAKER) (test 142 meq/L 136-145 wykl=402) POTASSIUM (BEAKER) (test 3.9 meq/L 3.5-5.1 hjov=187) CHLORIDE (BEAKER) (test 108 meq/L 98-107 pcfv=851) CO2 (BEAKER) (test 26 meq/L 22-29 mvta=840) BLOOD UREA NITROGEN 16 mg/dL 7-21 (BEAKER) (test rnoz=164) CREATININE (BEAKER) (test 0.69 mg/dL 0.57-1.25 ceoc=808) GLUCOSE RANDOM (BEAKER) 86 mg/dL 70-105 (test pzdf=439) CALCIUM (BEAKER) (test 8.6 mg/dL 8.4-10.2 jxux=563) EGFR (BEAKER) (test 94 mL/min/1.73 sq m ESTIMATED GFR IS NOT mtyz=1904) ACCURATE CREATININE CLEARANCE IN PREDICTING GLOMERULAR FILTRATION RATE. ESTIMATED GFR IS NOT APPLICABLE FOR DIALYSIS PATIENTS. HEPATIC FUNCTION [id number] 08:58:00 Test Item Value Reference Range Comments TOTAL PROTEIN (BEAKER) (test tfnk=728) 6.8 gm/dL 6.0-8.3 ALBUMIN (BEAKER) (test lhua=6644) 3.6 g/dL 3.5-5.0 BILIRUBIN TOTAL (BEAKER) (test nhty=314) 0.4 mg/dL 0.2-1.2 BILIRUBIN DIRECT (BEAKER) (test rmgq=173) 0.2 mg/dL 0.1-0.5 ALKALINE PHOSPHATASE (BEAKER) (test aogu=285) 59 U/L 40-150 AST (SGOT) (BEAKER) (test wnno=117) 24 U/L 5-34 ALT (SGPT) (BEAKER) (test bann=379) 17 U/L 6-55 POCT-GLUCOSE [id number] 08:20:00 Test Item Value Reference Range Comments POC-GLUCOSE METER (BEAKER) 143 mg/dL 70-110 TESTED AT [address] (test pilz=3750) [facility] [address] PROTHROMBIN [id number] 05:55:00 Test Item Value Reference Range Comments PROTIME (BEAKER) (test mkhq=970) 13.4 seconds 11.7-14.7 INR (BEAKER) (test toke=671) 1.0 <=5.9 RECOMMENDED COUMADIN/WARFARIN INR THERAPY RANGESSTANDARD DOSE: 2.0 - 3.0 Includes: PROPHYLAXIS forvenous thrombosis, systemic embolization; TREATMENT for venous thrombosis and/or pulmonary embolus.HIGH RISK: Target INR is 2.5-3.5 for patients with mechanical heart valves.POCT-GLUCOSE [id number] 20:32:00 Test Item Value Reference Range Comments POC-GLUCOSE METER (BEAKER) 90 mg/dL 70-110 TESTED AT [address] (test ddio=5696) [facility] [address] POCT-GLUCOSE [id number] 16:47:00 Test Item Value Reference Range Comments POC-GLUCOSE METER (BEAKER) 79 mg/dL 70-110 TESTED AT [facility] [address] [facility] (test vwqd=4928) [facility] [address] POCT-GLUCOSE [id number] 07:47:00 Test Item Value Reference Range Comments POC-GLUCOSE METER (BEAKER) 97 mg/dL 70-110 TESTED AT [facility] [address] [facility] (test qfde=4134) [facility] [address] TROPONIN [id number] 07:02:00 Test Item Value Reference Range Comments TROPONIN I (BEAKER) (test vjrn=198) < ng/mL 0.00-0.03 Troponin I (TnI) levels [...] failure, acidosis, acute neurological disease, and persistent tachyarrhythmia.[id number] 07:00:00 Test Item Value Reference Range Comments PHOSPHORUS (BEAKER) (test uemh=315) 5.0 mg/dL 2.3-4.7 [id number] 07:00:00 Test Item Value Reference Range Comments MAGNESIUM (BEAKER) (test jgey=094) 1.9 mg/dL 1.6-2.6 BASIC METABOLIC [id number] 07:00:00 Test Item Value Reference Range Comments SODIUM (BEAKER) (test 141 meq/L 136-145 npsd=594) POTASSIUM (BEAKER) (test 4.0 meq/L 3.5-5.1 nxna=150) CHLORIDE (BEAKER) (test 106 meq/L 98-107 yshn=201) CO2 (BEAKER) (test 25 meq/L 22-29 kazx=253) BLOOD UREA NITROGEN 14 mg/dL 7-21 (BEAKER) (test csum=085) CREATININE (BEAKER) (test 0.72 mg/dL 0.57-1.25 ipkq=954) GLUCOSE RANDOM (BEAKER) 109 mg/dL 70-105 (test aczl=667) CALCIUM (BEAKER) (test 9.5 mg/dL 8.4-10.2 huyh=662) EGFR (BEAKER) (test 89 mL/min/1.73 sq m ESTIMATED GFR IS NOT pthb=3180) ACCURATE CREATININE CLEARANCE IN PREDICTING GLOMERULAR FILTRATION RATE. ESTIMATED GFR IS NOT APPLICABLE FOR DIALYSIS PATIENTS. HEPATIC FUNCTION [id number] 07:00:00 Test Item Value Reference Range Comments TOTAL PROTEIN (BEAKER) (test fcap=461) 7.7 gm/dL 6.0-8.3 ALBUMIN (BEAKER) (test ltll=9347) 4.0 g/dL 3.5-5.0 BILIRUBIN TOTAL (BEAKER) (test ymjz=582) 0.5 mg/dL 0.2-1.2 BILIRUBIN DIRECT (BEAKER) (test flkc=945) 0.2 mg/dL 0.1-0.5 ALKALINE PHOSPHATASE (BEAKER) (test dsfo=622) 69 U/L 40-150 AST (SGOT) (BEAKER) (test varo=783) 34 U/L 5-34 ALT (SGPT) (BEAKER) (test fcez=928) 21 U/L 6-55 PROTHROMBIN [id number] 06:31:00 Test Item Value Reference Range Comments PROTIME (BEAKER) (test yrzn=112) 14.0 seconds 11.7-14.7 INR (BEAKER) (test tbii=876) 1.1 <=5.9 RECOMMENDED COUMADIN/WARFARIN INR THERAPY RANGESSTANDARD DOSE: 2.0 - 3.0 Includes: PROPHYLAXIS forvenous thrombosis, systemic embolization; TREATMENT for venous thrombosis and/or pulmonary embolus.HIGH RISK: Target INR is 2.5-3.5 for patients with mechanical heart valves.CBC W/PLT COUNT & AUTO [id number] 06:28:00 Test Item Value Reference Range Comments WHITE BLOOD CELL COUNT (BEAKER) (test dxdv=700) 8.9 K/ L 3.5-10.5 RED BLOOD CELL COUNT (BEAKER) (test hvoo=375) 4.55 M/ L 3.93-5.22 HEMOGLOBIN (BEAKER) (test zqtv=499) 13.0 GM/DL 11.2-15.7 HEMATOCRIT (BEAKER) (test ygkl=650) 42.0 % 34.1-44.9 MEAN CORPUSCULAR VOLUME (BEAKER) (test ofqx=448) 92.3 fL 79.4-94.8 MEAN CORPUSCULAR HEMOGLOBIN (BEAKER) (test 28.6 pg 25.6-32.2 npcj=078) MEAN CORPUSCULAR HEMOGLOBIN CONC (BEAKER) (test 31.0 GM/DL 32.2-35.5 qmso=882) RED CELL DISTRIBUTION WIDTH (BEAKER) (test 13.9 % 11.7-14.4 xmrs=191) PLATELET COUNT (BEAKER) (test shmz=769) 202 K/CU MM 150-450 MEAN PLATELET VOLUME (BEAKER) (test iwsf=096) 12.6 fL 9.4-12.3 NUCLEATED RED BLOOD CELLS (BEAKER) (test 0 /100 WBC 0-0 ikai=135) NEUTROPHILS RELATIVE PERCENT (BEAKER) (test 70 % bkvi=314) LYMPHOCYTES RELATIVE PERCENT (BEAKER) (test 23 % clfg=313) MONOCYTES RELATIVE PERCENT (BEAKER) (test 4 % agng=897) EOSINOPHILS RELATIVE PERCENT (BEAKER) (test 3 % kkli=998) BASOPHILS RELATIVE PERCENT (BEAKER) (test 0 % uxil=619) NEUTROPHILS ABSOLUTE COUNT (BEAKER) (test 6.19 K/ L 1.56-6.13 urtu=536) LYMPHOCYTES ABSOLUTE COUNT (BEAKER) (test 2.03 K/ L 1.18-3.74 hnue=662) MONOCYTES ABSOLUTE COUNT (BEAKER) (test 0.37 K/ L 0.24-0.36 epot=290) EOSINOPHILS ABSOLUTE COUNT (BEAKER) (test 0.24 K/ L 0.04-0.36 btxq=893) BASOPHILS ABSOLUTE COUNT (BEAKER) (test 0.02 K/ L 0.01-0.08 tksh=484) IMMATURE GRANULOCYTES-RELATIVE PERCENT (BEAKER) 0 % 0-1 (test ldtv=0745) CREATINE KINASE (CK), TOTAL AND [id number] 01:39:00 Test Item Value Reference Range Comments CREATINE KINASE TOTAL (BEAKER) (test gfcb=459) 55 U/L 29-200 CREATINE KINASE-MB (BEAKER) (test djhf=075) 1.1 ng/mL 0.0-6.6 CREATINE KINASE-MB INDEX (BEAKER) (test vqtv=205) 2.0 % CK-MB Reference Range:<6.7 Normal6.7-10.0 Borderline>10.0 AbnormalTROPONIN [id number] 01:39:00 Test Item Value Reference Range Comments TROPONIN I (BEAKER) (test banz=232) < ng/mL 0.00-0.03 Troponin I (TnI) levels [...] acidosis, acute neurological disease, and persistent tachyarrhythmia.POCT-GLUCOSE [id number] 12:39:00 Test Item Value Reference Range Comments POC-GLUCOSE METER (BEAKER) 80 mg/dL 70-110 TESTED AT [address] (test mnpi=1646) [place] [id number] POCT-GLUCOSE [id number] 07:07:00 Test Item Value Reference Range Comments POC-GLUCOSE METER (BEAKER) 100 mg/dL 70-110 TESTED AT [address] (test uyvl=6667) [place] [address] POCT-GLUCOSE [id number] 21:12:00 Test Item Value Reference Range Comments POC-GLUCOSE METER (BEAKER) 138 mg/dL 70-110 TESTED AT [address] (test dric=7616) [place] [address] POCT-GLUCOSE [id number] 12:04:00 Test Item Value Reference Range Comments POC-GLUCOSE METER (BEAKER) 113 mg/dL 70-110 TESTED AT [address] (test slro=5879) [place] [address] BASIC METABOLIC [id number] 04:26:00 Test Item Value Reference Range Comments SODIUM (BEAKER) (test 141 meq/L 136-145 uhst=765) POTASSIUM (BEAKER) (test 4.2 meq/L 3.5-5.1 Specimen moderately ktnh=029) hemolyzed CHLORIDE (BEAKER) (test 107 meq/L 98-107 yhah=846) CO2 (BEAKER) (test 25 meq/L 22-29 fisf=309) BLOOD UREA NITROGEN 13 mg/dL 7-21 (BEAKER) (test tkrs=986) CREATININE (BEAKER) (test 0.61 mg/dL 0.57-1.25 Specimen moderately wxlj=745) hemolyzed GLUCOSE RANDOM (BEAKER) 93 mg/dL 70-105 (test fvhp=715) CALCIUM (BEAKER) (test 9.0 mg/dL 8.4-10.2 rnbw=678) EGFR (BEAKER) (test 108 mL/min/1.73 sq m ESTIMATED GFR IS NOT bawg=2547) ACCURATE CREATININE CLEARANCE IN PREDICTING GLOMERULAR FILTRATION RATE. ESTIMATED GFR IS NOT APPLICABLE FOR DIALYSIS PATIENTS. CBC W/PLT COUNT & AUTO [id number] 04:02:00 Test Item Value Reference Range Comments WHITE BLOOD CELL COUNT (BEAKER) (test birz=367) 8.4 K/ L 3.5-10.5 RED BLOOD CELL COUNT (BEAKER) (test idvj=625) 4.15 M/ L 3.93-5.22 HEMOGLOBIN (BEAKER) (test gdjw=780) 11.8 GM/DL 11.2-15.7 HEMATOCRIT (BEAKER) (test vspe=063) 37.9 % 34.1-44.9 MEAN CORPUSCULAR VOLUME (BEAKER) (test siem=437) 91.3 fL 79.4-94.8 MEAN CORPUSCULAR HEMOGLOBIN (BEAKER) (test 28.4 pg 25.6-32.2 dzzx=334) MEAN CORPUSCULAR HEMOGLOBIN CONC (BEAKER) (test 31.1 GM/DL 32.2-35.5 kxmn=997) RED CELL DISTRIBUTION WIDTH (BEAKER) (test 14.1 % 11.7-14.4 tzrh=900) PLATELET COUNT (BEAKER) (test fjjx=635) 200 K/CU MM 150-450 MEAN PLATELET VOLUME (BEAKER) (test oykb=219) 11.9 fL 9.4-12.3 NUCLEATED RED BLOOD CELLS (BEAKER) (test 0 /100 WBC 0-0 gyzz=706) NEUTROPHILS RELATIVE PERCENT (BEAKER) (test 73 % qisc=450) LYMPHOCYTES RELATIVE PERCENT (BEAKER) (test 19 % gqie=653) MONOCYTES RELATIVE PERCENT (BEAKER) (test 5 % bfsz=393) EOSINOPHILS RELATIVE PERCENT (BEAKER) (test 3 % wkfa=118) BASOPHILS RELATIVE PERCENT (BEAKER) (test 0 % pgds=844) NEUTROPHILS ABSOLUTE COUNT (BEAKER) (test 6.08 K/ L 1.56-6.13 lwxw=334) LYMPHOCYTES ABSOLUTE COUNT (BEAKER) (test 1.62 K/ L 1.18-3.74 hxzd=132) MONOCYTES ABSOLUTE COUNT (BEAKER) (test 0.39 K/ L 0.24-0.36 izxb=259) EOSINOPHILS ABSOLUTE COUNT (BEAKER) (test 0.24 K/ L 0.04-0.36 nwqu=638) BASOPHILS ABSOLUTE COUNT (BEAKER) (test 0.01 K/ L 0.01-0.08 dcds=548) IMMATURE GRANULOCYTES-RELATIVE PERCENT (BEAKER) 1 % 0-1 (test ngyy=9301) CLOSTRIDIUM DIFFICILE TOXIN [id number] 13:44:00 Test Item Value Reference Range Comments CLOSTRIDIUM DIFFICILE TOXIN, PCR (BEAKER) (test Not Detected Not Detected ichw=6754) This qualitative real-time polymerase chain reaction assay [...] a positive result is not recommended.CT, CTANGIO [id number] 06:59:00Addendum BeginsREPORT STATUS:A Three-dimensional post intravenous contrast images of the cerebral vasculature were created on a free standing workstation for better visualization of cerebral vascular anatomy and pathology. Signed: Skip Gardner MDReport Verified Date/Time: 04/12/2017 06:59:20 Reading Location: [address] Consult Reading RoomAddendum EndsFINAL REPORT Noncontrast [...] Gardner Verified Date/Time: 04/07/2017 01:12:44 Reading Location: [address] Consult Reading Room BASIC METABOLIC [id number] 05:37:00 Test Item Value Reference Range Comments SODIUM (BEAKER) (test 142 meq/L 136-145 wkbt=898) POTASSIUM (BEAKER) (test 3.7 meq/L 3.5-5.1 Specimen slightly qted=110) hemolyzed CHLORIDE (BEAKER) (test 105 meq/L 98-107 tzue=155) CO2 (BEAKER) (test 27 meq/L 22-29 xjyr=907) BLOOD UREA NITROGEN 11 mg/dL 7-21 (BEAKER) (test fmcx=746) CREATININE (BEAKER) (test 0.66 mg/dL 0.57-1.25 Specimen slightly dkpi=925) hemolyzed GLUCOSE RANDOM (BEAKER) 97 mg/dL 70-105 (test mdkn=968) CALCIUM (BEAKER) (test 9.2 mg/dL 8.4-10.2 dlol=706) EGFR (BEAKER) (test 99 mL/min/1.73 sq m ESTIMATED GFR IS NOT rxfv=7659) ACCURATE CREATININE CLEARANCE IN PREDICTING GLOMERULAR FILTRATION RATE. ESTIMATED GFR IS NOT APPLICABLE FOR DIALYSIS PATIENTS. CBC (HEMOGRAM ONLY)2017-04-12 05:17:00 Test Item Value Reference Range Comments WHITE BLOOD CELL COUNT (BEAKER) (test wwnv=957) 7.7 K/ L 3.5-10.5 RED BLOOD CELL COUNT (BEAKER) (test jcav=702) 4.17 M/ L 3.93-5.22 HEMOGLOBIN (BEAKER) (test sywx=229) 12.0 GM/DL 11.2-15.7 HEMATOCRIT (BEAKER) (test yeqf=115) 38.0 % 34.1-44.9 MEAN CORPUSCULAR VOLUME (BEAKER) (test bjkb=859) 91.1 fL 79.4-94.8 MEAN CORPUSCULAR HEMOGLOBIN (BEAKER) (test 28.8 pg 25.6-32.2 yyeh=966) MEAN CORPUSCULAR HEMOGLOBIN CONC (BEAKER) (test 31.6 GM/DL 32.2-35.5 cyft=176) RED CELL DISTRIBUTION WIDTH (BEAKER) (test 14.0 % 11.7-14.4 skem=993) PLATELET COUNT (BEAKER) (test pavz=160) 219 K/CU MM 150-450 MEAN PLATELET VOLUME (BEAKER) (test xadt=647) 11.6 fL 9.4-12.3 NUCLEATED RED BLOOD CELLS (BEAKER) (test 0 /100 WBC 0-0 ybwz=484) POCT-GLUCOSE [id number] 17:55:00 Test Item Value Reference Range Comments POC-GLUCOSE METER (BEAKER) 111 mg/dL 70-110 TESTED AT [address] (test gcqt=7678) [facility] [address] POCT-GLUCOSE [id number] 12:02:00 Test Item Value Reference Range Comments POC-GLUCOSE METER (BEAKER) 100 mg/dL 70-110 TESTED AT [address] (test ygbs=1843) [place] [id number] POCT-GLUCOSE [id number] 07:50:00 Test Item Value Reference Range Comments POC-GLUCOSE METER (BEAKER) 110 mg/dL 70-110 TESTED AT [address] (test zvss=2629) [place] [id number] POCT-GLUCOSE [id number] 16:56:00 Test Item Value Reference Range Comments POC-GLUCOSE METER (BEAKER) 104 mg/dL 70-110 TESTED AT [address] (test ivsk=3784) [facility] [address] POCT-GLUCOSE [id number] 12:22:00 Test Item Value Reference Range Comments POC-GLUCOSE METER (BEAKER) 84 mg/dL 70-110 TESTED AT [address] (test bjor=2266) [place] [id number] HEMOGLOBIN [id number] 08:46:00 Test Item Value Reference Range Comments HEMOGLOBIN A1C (BEAKER) (test rfbp=365) 6.2 % 4.3-6.1 BASIC METABOLIC [id number] 06:42:00 Test Item Value Reference Range Comments SODIUM (BEAKER) (test 142 meq/L 136-145 ikrh=401) POTASSIUM (BEAKER) (test 4.1 meq/L 3.5-5.1 Specimen slightly llvj=384) hemolyzed CHLORIDE (BEAKER) (test 104 meq/L 98-107 pdwh=494) CO2 (BEAKER) (test 28 meq/L 22-29 akto=160) BLOOD UREA NITROGEN 9 mg/dL 7-21 (BEAKER) (test gbsj=822) CREATININE (BEAKER) (test 0.60 mg/dL 0.57-1.25 Specimen slightly wyjq=313) hemolyzed GLUCOSE RANDOM (BEAKER) 96 mg/dL 70-105 (test axgf=108) CALCIUM (BEAKER) (test 9.1 mg/dL 8.4-10.2 fliz=862) EGFR (BEAKER) (test 110 mL/min/1.73 sq m ESTIMATED GFR IS NOT zavr=4584) ACCURATE CREATININE CLEARANCE IN PREDICTING GLOMERULAR FILTRATION RATE. ESTIMATED GFR IS NOT APPLICABLE FOR DIALYSIS PATIENTS. CBC W/PLT COUNT & AUTO [id number] 06:19:00 Test Item Value Reference Range Comments WHITE BLOOD CELL COUNT (BEAKER) (test rozn=739) 7.5 K/ L 3.5-10.5 RED BLOOD CELL COUNT (BEAKER) (test gxid=534) 4.12 M/ L 3.93-5.22 HEMOGLOBIN (BEAKER) (test bdae=559) 11.8 GM/DL 11.2-15.7 HEMATOCRIT (BEAKER) (test jjaj=254) 37.6 % 34.1-44.9 MEAN CORPUSCULAR VOLUME (BEAKER) (test vqkn=789) 91.3 fL 79.4-94.8 MEAN CORPUSCULAR HEMOGLOBIN (BEAKER) (test 28.6 pg 25.6-32.2 wlko=789) MEAN CORPUSCULAR HEMOGLOBIN CONC (BEAKER) (test 31.4 GM/DL 32.2-35.5 ucrc=882) RED CELL DISTRIBUTION WIDTH (BEAKER) (test 13.8 % 11.7-14.4 gbiw=945) PLATELET COUNT (BEAKER) (test bvxe=966) 192 K/CU MM 150-450 MEAN PLATELET VOLUME (BEAKER) (test eezs=106) 11.6 fL 9.4-12.3 NUCLEATED RED BLOOD CELLS (BEAKER) (test 0 /100 WBC 0-0 bukl=774) NEUTROPHILS RELATIVE PERCENT (BEAKER) (test 77 % bnmh=059) LYMPHOCYTES RELATIVE PERCENT (BEAKER) (test 16 % jdny=881) MONOCYTES RELATIVE PERCENT (BEAKER) (test 4 % dtat=301) EOSINOPHILS RELATIVE PERCENT (BEAKER) (test 2 % mkbw=806) BASOPHILS RELATIVE PERCENT (BEAKER) (test 0 % cazx=197) NEUTROPHILS ABSOLUTE COUNT (BEAKER) (test 5.82 K/ L 1.56-6.13 leqm=021) LYMPHOCYTES ABSOLUTE COUNT (BEAKER) (test 1.21 K/ L 1.18-3.74 qoyn=051) MONOCYTES ABSOLUTE COUNT (BEAKER) (test 0.31 K/ L 0.24-0.36 cebg=365) EOSINOPHILS ABSOLUTE COUNT (BEAKER) (test 0.15 K/ L 0.04-0.36 bwbz=199) BASOPHILS ABSOLUTE COUNT (BEAKER) (test 0.01 K/ L 0.01-0.08 zmvf=188) IMMATURE GRANULOCYTES-RELATIVE PERCENT (BEAKER) 1 % 0-1 (test czll=4356) POCT-GLUCOSE [id number] 12:07:00 Test Item Value Reference Range Comments POC-GLUCOSE METER (BEAKER) 110 mg/dL 70-110 TESTED AT [facility] [address] [facility] (test rszi=1875) [facility] [address] [address], BRAIN, WITHOUT [id number] 06:55:00FINAL REPORT Clinical history : Decreased alertnessComparison [...] Verified Date/Time: 04/09/2017 06 :55:25 Reading Location: [facility] [id number] Consult Reading Room BASIC METABOLIC [id number] 05:57:00 Test Item Value Reference Range Comments SODIUM (BEAKER) (test 140 meq/L 136-145 ibsq=662) POTASSIUM (BEAKER) (test 3.7 meq/L 3.5-5.1 laji=539) CHLORIDE (BEAKER) (test 103 meq/L 98-107 tygi=483) CO2 (BEAKER) (test 29 meq/L 22-29 dbas=661) BLOOD UREA NITROGEN 7 mg/dL 7-21 (BEAKER) (test enhb=300) CREATININE (BEAKER) (test 0.56 mg/dL 0.57-1.25 stfc=506) GLUCOSE RANDOM (BEAKER) 110 mg/dL 70-105 (test qwzy=574) CALCIUM (BEAKER) (test 8.7 mg/dL 8.4-10.2 nykc=240) EGFR (BEAKER) (test 119 mL/min/1.73 sq m ESTIMATED GFR IS NOT tsim=2425) ACCURATE CREATININE CLEARANCE IN PREDICTING GLOMERULAR FILTRATION RATE. ESTIMATED GFR IS NOT APPLICABLE FOR DIALYSIS PATIENTS. CBC W/PLT COUNT & AUTO [id number] 04:54:00 Test Item Value Reference Range Comments WHITE BLOOD CELL COUNT (BEAKER) (test mtlr=104) 8.1 K/ L 3.5-10.5 RED BLOOD CELL COUNT (BEAKER) (test zjaa=385) 4.07 M/ L 3.93-5.22 HEMOGLOBIN (BEAKER) (test nmmp=701) 11.6 GM/DL 11.2-15.7 HEMATOCRIT (BEAKER) (test vvzt=806) 37.3 % 34.1-44.9 MEAN CORPUSCULAR VOLUME (BEAKER) (test csgw=537) 91.6 fL 79.4-94.8 MEAN CORPUSCULAR HEMOGLOBIN (BEAKER) (test 28.5 pg 25.6-32.2 inxn=280) MEAN CORPUSCULAR HEMOGLOBIN CONC (BEAKER) (test 31.1 GM/DL 32.2-35.5 pvuj=867) RED CELL DISTRIBUTION WIDTH (BEAKER) (test 13.6 % 11.7-14.4 cnkp=029) PLATELET COUNT (BEAKER) (test bjxw=888) 171 K/CU MM 150-450 MEAN PLATELET VOLUME (BEAKER) (test hffz=320) 11.3 fL 9.4-12.3 NUCLEATED RED BLOOD CELLS (BEAKER) (test 0 /100 WBC 0-0 ssrf=102) NEUTROPHILS RELATIVE PERCENT (BEAKER) (test 77 % gsft=853) LYMPHOCYTES RELATIVE PERCENT (BEAKER) (test 16 % wqwj=943) MONOCYTES RELATIVE PERCENT (BEAKER) (test 5 % lyua=844) EOSINOPHILS RELATIVE PERCENT (BEAKER) (test 2 % jfiz=635) BASOPHILS RELATIVE PERCENT (BEAKER) (test 0 % ddfm=987) NEUTROPHILS ABSOLUTE COUNT (BEAKER) (test 6.20 K/ L 1.56-6.13 zlei=824) LYMPHOCYTES ABSOLUTE COUNT (BEAKER) (test 1.30 K/ L 1.18-3.74 aihw=516) MONOCYTES ABSOLUTE COUNT (BEAKER) (test 0.38 K/ L 0.24-0.36 gvjx=173) EOSINOPHILS ABSOLUTE COUNT (BEAKER) (test 0.14 K/ L 0.04-0.36 bhjp=762) BASOPHILS ABSOLUTE COUNT (BEAKER) (test 0.01 K/ L 0.01-0.08 zbse=778) IMMATURE GRANULOCYTES-RELATIVE PERCENT (BEAKER) 1 % 0-1 (test zmtk=5825) POCT-GLUCOSE [id number] 01:34:00 Test Item Value Reference Range Comments POC-GLUCOSE METER (BEAKER) 92 mg/dL 70-110 TESTED AT [address] (test xnmt=9979) [place] [id number] POCT-GLUCOSE [id number] 19:20:00 Test Item Value Reference Range Comments POC-GLUCOSE METER (BEAKER) 85 mg/dL 70-110 TESTED AT [address] (test fkmj=0089) [place] [address] [address], BRAIN, WITHOUT [id number] 15:47:00FINAL REPORT CT head without contrast. Comparisons: [...] Tijerinaeport Verified Date/Time: 04/08/2017 15:47:42 POCT- GLUCOSE [id number] 12:44:00 Test Item Value Reference Range Comments POC-GLUCOSE METER (BEAKER) 94 mg/dL 70-110 TESTED AT [facility] [address] [facility] (test awae=2501) [facility] [address] BASIC METABOLIC [id number] 05:05:00 Test Item Value Reference Range Comments SODIUM (BEAKER) (test 142 meq/L 136-145 pelx=265) POTASSIUM (BEAKER) (test 4.0 meq/L 3.5-5.1 vskz=051) CHLORIDE (BEAKER) (test 107 meq/L 98-107 optc=168) CO2 (BEAKER) (test 27 meq/L 22-29 qkom=793) BLOOD UREA NITROGEN 9 mg/dL 7-21 (BEAKER) (test vnoo=914) CREATININE (BEAKER) (test 0.59 mg/dL 0.57-1.25 awal=435) GLUCOSE RANDOM (BEAKER) 105 mg/dL 70-105 (test moxk=077) CALCIUM (BEAKER) (test 8.7 mg/dL 8.4-10.2 avyf=675) EGFR (BEAKER) (test 112 mL/min/1.73 sq m ESTIMATED GFR IS NOT cykv=2846) ACCURATE CREATININE CLEARANCE IN PREDICTING GLOMERULAR FILTRATION RATE. ESTIMATED GFR IS NOT APPLICABLE FOR DIALYSIS PATIENTS. CBC W/PLT COUNT & AUTO [id number] 04:28:00 Test Item Value Reference Range Comments WHITE BLOOD CELL COUNT (BEAKER) (test fxcw=610) 7.1 K/ L 3.5-10.5 RED BLOOD CELL COUNT (BEAKER) (test xyns=101) 3.90 M/ L 3.93-5.22 HEMOGLOBIN (BEAKER) (test qqpg=755) 11.0 GM/DL 11.2-15.7 HEMATOCRIT (BEAKER) (test edcf=202) 36.6 % 34.1-44.9 MEAN CORPUSCULAR VOLUME (BEAKER) (test ueue=611) 93.8 fL 79.4-94.8 MEAN CORPUSCULAR HEMOGLOBIN (BEAKER) (test 28.2 pg 25.6-32.2 fjlg=710) MEAN CORPUSCULAR HEMOGLOBIN CONC (BEAKER) (test 30.1 GM/DL 32.2-35.5 ofox=419) RED CELL DISTRIBUTION WIDTH (BEAKER) (test 14.2 % 11.7-14.4 fwoo=724) PLATELET COUNT (BEAKER) (test cvbv=497) 187 K/CU MM 150-450 MEAN PLATELET VOLUME (BEAKER) (test ceep=377) 10.9 fL 9.4-12.3 NUCLEATED RED BLOOD CELLS (BEAKER) (test 0 /100 WBC 0-0 xhmw=104) NEUTROPHILS RELATIVE PERCENT (BEAKER) (test 73 % ebyg=059) LYMPHOCYTES RELATIVE PERCENT (BEAKER) (test 19 % rjqf=209) MONOCYTES RELATIVE PERCENT (BEAKER) (test 5 % wfun=193) EOSINOPHILS RELATIVE PERCENT (BEAKER) (test 2 % bjbq=517) BASOPHILS RELATIVE PERCENT (BEAKER) (test 0 % mbug=837) NEUTROPHILS ABSOLUTE COUNT (BEAKER) (test 5.22 K/ L 1.56-6.13 ymvo=107) LYMPHOCYTES ABSOLUTE COUNT (BEAKER) (test 1.37 K/ L 1.18-3.74 zmki=058) MONOCYTES ABSOLUTE COUNT (BEAKER) (test 0.34 K/ L 0.24-0.36 xzou=827) EOSINOPHILS ABSOLUTE COUNT (BEAKER) (test 0.13 K/ L 0.04-0.36 qvbd=534) BASOPHILS ABSOLUTE COUNT (BEAKER) (test 0.01 K/ L 0.01-0.08 xlmq=124) IMMATURE GRANULOCYTES-RELATIVE PERCENT (BEAKER) 1 % 0-1 (test yjeh=4162) POCT-GLUCOSE [id number] 17:32:00 Test Item Value Reference Range Comments POC-GLUCOSE METER (BEAKER) 90 mg/dL 70-110 TESTED AT [address] (test jlza=2142) [place] [address] POCT-GLUCOSE [id number] 12:02:00 Test Item Value Reference Range Comments POC-GLUCOSE METER (BEAKER) 91 mg/dL 70-110 TESTED AT [address] (test fyza=5228) [place] [address] EEG AWAKE AND [id number] 11:38:00Reason for exam:->R/O subclinical seizuresDATE OF [id number] OF REPORT: [id number]: [id number]: 17- 1801Start time: 09:54Stop time: 10:18ICD-10: G 93.40CPT Code: 76455 HISTORY: 41 y.o. female with history of morbid obesity, DM2 who presented today to OSH with R sided facial droop and LUE weakness . Patient was evaluated at OSH where patient was started with tPA after normal CT. Now with acute encephalopathy MEDICATIONS THAT COULD AFFECT EEG: TECHNICAL SUMMARY: This is a digital EEG recorded with 32 input channels on a [employer] system and then reviewed with bipolar and [...] additional EEG recordings. Javi Mae MDNeurophysiology Fellow [id number] Note: I personally reviewed this EEG record in its entirety and I agreewith the details of this report. Kitty Benson MD, PhDEpilepsy Attending 11 :38 AMCREATINE KINASE (CK), TOTAL AND [id number] 09:35:00 Test Item Value Reference Range Comments CREATINE KINASE TOTAL (BEAKER) (test nyev=468) 52 U/L 29-200 CREATINE KINASE-MB (BEAKER) (test mxse=645) 1.2 ng/mL 0.0-6.6 CREATINE KINASE-MB INDEX (BEAKER) (test ezdf=248) 2.3 % CK-MB Reference Range:<6.7 Normal6.7-10.0 Borderline>10.0 AbnormalTROPONIN [id number] 09:31:00 Test Item Value Reference Range Comments TROPONIN I (BEAKER) (test mqwg=980) < ng/mL 0.00-0.03 Troponin I (TnI) levels [...] failure, acidosis, acute neurological disease, and persistent tachyarrhythmia.[id number] 09:28:00 Test Item Value Reference Range Comments AMMONIA (BEAKER) (test hxfe=635) 34 mol/L 18-72 TSH/FREE T4 IF [id number] 04:28:00 Test Item Value Reference Range Comments THYROID STIMULATING HORMONE (BEAKER) (test 1.12 uIU/mL 0.35-4.94 rctc=273) VITAMIN B12 AND [id number] 04:28:00 Test Item Value Reference Range Comments VITAMIN B12 (BEAKER) (test guuv=337) 417 pg/mL 213-816 FOLATE (BEAKER) (test qhef=337) 13.6 ng/mL >=7.0 CBC W/PLT COUNT & AUTO [id number] 03:27:00 Test Item Value Reference Range Comments WHITE BLOOD CELL COUNT (BEAKER) (test mitp=451) 8.1 K/ L 3.5-10.5 RED BLOOD CELL COUNT (BEAKER) (test xoid=729) 3.91 M/ L 3.93-5.22 HEMOGLOBIN (BEAKER) (test pkxs=395) 11.4 GM/DL 11.2-15.7 HEMATOCRIT (BEAKER) (test prjs=658) 35.8 % 34.1-44.9 MEAN CORPUSCULAR VOLUME (BEAKER) (test jecu=172) 91.6 fL 79.4-94.8 MEAN CORPUSCULAR HEMOGLOBIN (BEAKER) (test 29.2 pg 25.6-32.2 fady=814) MEAN CORPUSCULAR HEMOGLOBIN CONC (BEAKER) (test 31.8 GM/DL 32.2-35.5 znmb=719) RED CELL DISTRIBUTION WIDTH (BEAKER) (test 14.3 % 11.7-14.4 lwoi=155) PLATELET COUNT (BEAKER) (test rcry=830) 166 K/CU MM 150-450 MEAN PLATELET VOLUME (BEAKER) (test kmqz=686) 12.4 fL 9.4-12.3 NUCLEATED RED BLOOD CELLS (BEAKER) (test 0 /100 WBC 0-0 eisl=275) NEUTROPHILS RELATIVE PERCENT (BEAKER) (test 78 % vzbc=272) LYMPHOCYTES RELATIVE PERCENT (BEAKER) (test 16 % gest=949) MONOCYTES RELATIVE PERCENT (BEAKER) (test 4 % uvgh=394) EOSINOPHILS RELATIVE PERCENT (BEAKER) (test 1 % urtm=767) BASOPHILS RELATIVE PERCENT (BEAKER) (test 0 % qypu=060) NEUTROPHILS ABSOLUTE COUNT (BEAKER) (test 6.27 K/ L 1.56-6.13 yhxo=654) LYMPHOCYTES ABSOLUTE COUNT (BEAKER) (test 1.30 K/ L 1.18-3.74 hwky=871) MONOCYTES ABSOLUTE COUNT (BEAKER) (test 0.32 K/ L 0.24-0.36 wjds=524) EOSINOPHILS ABSOLUTE COUNT (BEAKER) (test 0.09 K/ L 0.04-0.36 drrm=060) BASOPHILS ABSOLUTE COUNT (BEAKER) (test 0.02 K/ L 0.01-0.08 cdtd=709) IMMATURE GRANULOCYTES-RELATIVE PERCENT (BEAKER) 1 % 0-1 (test yrob=2066) CREATINE KINASE (CK), TOTAL AND [id number] 03:11:00 Test Item Value Reference Range Comments CREATINE KINASE TOTAL (BEAKER) (test sqsn=575) 71 U/L 29-200 CREATINE KINASE-MB (BEAKER) (test cwdj=742) 1.5 ng/mL 0.0-6.6 CREATINE KINASE-MB INDEX (BEAKER) (test hcfq=608) 2.1 % CK-MB Reference Range:<6.7 Normal6.7-10.0 Borderline>10.0 AbnormalFastingFastingTROPONIN [id number] 03:11:00 Test Item Value Reference Range Comments TROPONIN I (BEAKER) (test mhux=340) < ng/mL 0.00-0.03 Troponin I (TnI) levels [...] acute neurological disease, and persistent tachyarrhythmia.FastingBASIC METABOLIC [id number] 03:04:00 Test Item Value Reference Range Comments SODIUM (BEAKER) (test 139 meq/L 136-145 cobf=483) POTASSIUM (BEAKER) (test 4.3 meq/L 3.5-5.1 Specimen moderately jcwh=819) hemolyzed CHLORIDE (BEAKER) (test 107 meq/L 98-107 spux=724) CO2 (BEAKER) (test 24 meq/L 22-29 wtib=665) BLOOD UREA NITROGEN 12 mg/dL 7-21 (BEAKER) (test uvwz=398) CREATININE (BEAKER) (test 0.68 mg/dL 0.57-1.25 Specimen moderately ertv=526) hemolyzed GLUCOSE RANDOM (BEAKER) 175 mg/dL 70-105 (test fetv=780) CALCIUM (BEAKER) (test 8.5 mg/dL 8.4-10.2 xjjd=229) EGFR (BEAKER) (test 95 mL/min/1.73 sq m ESTIMATED GFR IS NOT fuuj=4305) ACCURATE CREATININE CLEARANCE IN PREDICTING GLOMERULAR FILTRATION RATE. ESTIMATED GFR IS NOT APPLICABLE FOR DIALYSIS PATIENTS. FastingLIPID [id number] 03:04:00 Test Item Value Reference Range Comments TRIGLYCERIDES (BEAKER) (test 99 mg/dL Specimen moderately qnvl=983) hemolyzed CHOLESTEROL (BEAKER) (test 139 mg/dL Specimen moderately lovj=866) hemolyzed HDL CHOLESTEROL (BEAKER) (test 43 mg/dL obzi=201) LDL CHOLESTEROL CALCULATED 76 mg/dL (BEAKER) (test htwr=718) Triglyceride Reference Range: Low Risk <150 Borderline 150- 199 High Risk 200-499 Very High Risk >=500Cholesterol Reference Range: Low Risk <200 Borderline 200-239 High Risk > 240HDL Cholesterol Reference Range: Low Risk >=60 High Risk <40LDL Cholesterol Reference Range: Optimal <100 Near Optimal 100-129 Borderline 130-159 High 160-189 Very High >=190 FastingHEPATIC FUNCTION [id number] 03:04:00 Test Item Value Reference Range Comments TOTAL PROTEIN (BEAKER) (test 7.2 gm/dL 6.0-8.3 Specimen moderately hemolyzed wmuy=407) ALBUMIN (BEAKER) (test 3.4 g/dL 3.5-5.0 Specimen moderately hemolyzed hbvu=1736) BILIRUBIN TOTAL (BEAKER) (test 0.3 mg/dL 0.2-1.2 Specimen moderately hemolyzed ripy=195) BILIRUBIN DIRECT (BEAKER) 0.1 mg/dL 0.1-0.5 Specimen moderately hemolyzed (test ciqx=586) ALKALINE PHOSPHATASE (BEAKER) 74 U/L 40-150 (test xguq=830) AST (SGOT) (BEAKER) (test 37 U/L 5-34 Specimen moderately hemolyzed keze=130) ALT (SGPT) (BEAKER) (test 18 U/L 6-55 Specimen moderately rjvb=270) hemolyzed Fasting
[2018-06-19 10:43] LABS: Absolute Lymphocytes (CBC) 1.7 K/uL (0.7-4.9); Absolute Monocytes 0.4 K/uL (0.1-1.3); Absolute Neutrophil 5.3 K/uL (1.8-8.0); Basophils % 0.3 % (0-1.3); Eosinophils % 2.8 % (0-4.4); Hematocrit 40.9 % (36.0-45.0); Lymphocytes % 22.5 % (15.3-44.8); MPV 9.7 fL (7.6-11.3); Monocytes % 5.5 % (3.3-12.3); RBC Red Blood Cell Count 4.73 M/uL (3.86-4.86)
--- NOTE | 2018-06-19 10:44 | RAD REPORT ---
EXAM DESCRIPTION: CT - Head Brain Wo Cont - 06/19/2018 10:36 am CLINICAL HISTORY: DECLINING STATE CVA, drowsiness. COMPARISON: Head angio dated 06/13/2018; Ct Stroke Brain Wo Cont dated 06/12/2018; Neck Angio dated 06/13/2018 TECHNIQUE: All CT scans are performed using dose optimization technique as appropriate and may inclu de automated exposure control or mA/KV adjustment according to patient size. FINDINGS: No intracranial hemorrhage, hydrocephalus or extra-axial fluid collection.No areas of brai n edema or evidence of midline shift. The paranasal sinuses and mastoids are clear. The calvarium is intact. IMPRESSION: No acute intracranial abnormality.
[2018-06-19 10:45] LABS: Protime INR 1.08
[2018-06-19 10:56] LABS: Arterial Blood Carboxyhemoglob 0.9 % (0-1.5); Blood Gas Oxyhemoglobin 49.7 % (94-97); Blood O2 Saturation 50.6 % (92-98.5)
--- NOTE | 2018-06-19 11:02 | RAD REPORT ---
EXAM DESCRIPTION: RAD - Chest Single View - 06/19/2018 10:56 am CLINICAL HISTORY: MALAISE Chest pain. COMPARISON: Chest Single View dated 06/13/2018; Chest Single View dated 06/12/2018; Chest Single View dated 05/07/2018; Chest Single View dated 12/07/2017 FINDINGS: Portable technique limits examination quality. The lungs are underinflated but grossly clear. The heart is mildly prominent size. No displaced fract ures. IMPRESSION: Underinflated lungs.
[2018-06-19 11:14] LABS: ALT/SGPT 27 U/L (12-78); AST/SGOT 29 U/L (15-37); Albumin 3.6 g/dL (3.4-5.0); Alkaline Phosphatase 77 U/L (45-117); BUN Blood Urea Nitrogen 10 mg/dL (7-18); Bicarbonate 30 mmol/L (21-32); Bilirubin Direct 0.1 mg/dL (0-0.2); Bilirubin Total 0.4 mg/dL (0.2-1.0); Glucose Level 91 mg/dL (74-106); Magnesium 2.2 mg/dL (1.8-2.4); NT PRO-BNP 22 pg/mL (<125); Potassium 4.1 mmol/L (3.5-5.1); Protein, Total 8.1 g/dL (6.4-8.2); Sodium Level 141 mmol/L (136-145); Troponin (Emerg Dept Use Only) < 0.02 ng/mL (0.0-0.045)
--- NOTE | 2018-06-19 11:33 | EDPHYS ---
Physician Documentation [facility] Name: Kelle Calderón Age: 43 yrs Sex: Female : 1975 Arrival Date: 06/19/2018 Time: 10:04 Bed 26 Private MD: Bridgett Dhaliwal ED Physician Luis Eduardo Hernandez HPI: 06/19 11:35 This 43 yrs old Female presents to ER via Wheelchair with complaints of gs Palpitations. 11:35 The patient presents with a history of irregular heart beat, heart racing. Onset: The gs symptoms/episode began/occurred acutely, just prior to arrival. Duration: The patient or guardian reports a single episode, that is now resolved. Modifying factors: The symptoms are aggravated by nothing. The symptoms are alleviated by nothing. Associated signs and symptoms: Pertinent positives: chest pain. Severity of symptoms: At their worst the symptoms were moderate in the emergency department the symptoms have resolved and did so while in waiting room. The patient has not experienced similar symptoms in the past. The patient has been recently seen by a physician: pcp today, me last week for cva. 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 - Irregular menses ch Historical: - Allergies: 10:55 Warfarin; ch - Home Meds: 10:55 albuterol sulfate 2.5 mg /3 mL (0.083 %) Inhl nebu twice a day [Active]; amlodipine 10 ch mg tab 1 tab once daily [Active]; aspirin 81 mg Oral TbEC 1 tab once daily [Active]; atorvastatin 40 mg Oral tab 1 tab once daily [Active]; gabapentin 100 mg Oral cap 3 caps 3 times per day [Active]; Linzess 145 mcg Oral cap 1 cap once daily [Active]; lisinopril 20 mg Oral tab 1 tab once daily [Active]; metformin 500 mg Oral tab 1 tab 2 times per day [Active]; pantoprazole 40 mg Oral TbEC 1 tab once daily [Active]; prednisone 5 mg Oral tab once daily [Active]; Robaxin 500 mg Oral tab 2 tabs 4 times per day [Active]; Tylenol #4 Oral [Active]; venlafaxine 75 mg Oral tab 2 times per day [Active]; - PMHx: 10:55 Asthma; bells palsy; Chronic pain; CVA; Depression; Diabetes - NIDDM; GERD; ch Hypertension; Irritable bowel syndrome; Kidney stones; lymphedema; Migraines; Sleep Apnea; - PSHx: 10:55 Hysterectomy; Hernia repair; Knee surgery; ch - Immunization history:: Adult Immunizations up to date. - Ebola Screening: : No symptoms or risks identified at this time. - Social history:: Smoking status: Patient/guardian denies using tobacco. ROS: 11:35 All other systems are negative. gs Exam: 11:35 Head/Face: Normocephalic, atraumatic. Eyes: Pupils equal round and reactive to light, gs extra-ocular motions intact. Lids and lashes normal. Conjunctiva and sclera are non-icteric and not injected. Cornea within normal limits. Periorbital areas with no swelling, redness, or edema. ENT: Nares patent. No nasal discharge, no septal abnormalities noted. Tympanic membranes are normal and external auditory canals are clear. Oropharynx with no redness, swelling, or masses, exudates, or evidence of obstruction, uvula midline. Mucous membranes moist. Neck: Trachea midline, no thyromegaly or masses palpated, and no cervical lymphadenopathy. Supple, full range of motion without nuchal rigidity, or vertebral point tenderness. No Meningismus. Chest/axilla: Normal chest wall appearance and motion. Nontender with no deformity. No lesions are appreciated. Cardiovascular: Regular rate and rhythm with a normal S1 and S2. No gallops, murmurs, or rubs. Normal PMI, no JVD. No pulse deficits. Respiratory: Lungs have equal breath sounds bilaterally, clear to auscultation and percussion. No rales, rhonchi or wheezes noted. No increased work of breathing, no retractions or nasal flaring. Abdomen/GI: Soft, non-tender, with normal bowel sounds. No distension or tympany. No guarding or rebound. No evidence of tenderness throughout. Back: No spinal tenderness. No costovertebral tenderness. Full range of motion. Skin: Warm, dry with normal turgor. Normal color with no rashes, no lesions, and no evidence of cellulitis. MS/ Extremity: Pulses equal, no cyanosis. Neurovascular intact. Full, normal range of motion. 11:35 Constitutional: The patient appears alert, awake. 11:35 Neuro: Orientation: to person, place, time \T\ situation. Memory: appropriate for stated age, Cranial nerves: no acute changes, mild residual left facial droop , Motor: moves all fours, Sensation: no obvious gross deficits. Vital Signs: 10:05 BP 134 / 78; Pulse 59; Resp 12; Temp 98.4; Pulse Ox 99% on R/A; Pain 6/10; ch 11:30 BP 152 / 113; Pulse 52; Resp 10; Temp 98.4(O); Pulse Ox 99% on R/A; Pain 6/10; ch MDM: 10:19 Patient medically screened. 11:35 Differential diagnosis: arrythmia, dehydration, stress disorder, cva,mi. Data reviewed: vital signs, nurses notes. Response to treatment: the patient's symptoms have markedly improved after treatment. 06/19 10:11 Order name: glucometer results - FOR PT WITH NO ID; Complete Time: 11:04 aa5 06/19 10:21 Order name: Basic Metabolic Panel; Complete Time: 11:24 06/19 10:21 Order name: CBC with Diff; Complete Time: 11:04 06/19 10:21 Order name: LFT's; Complete Time: 11:24 06/19 10:21 Order name: Magnesium; Complete Time: 11:24 06/19 10:21 Order name: NT PRO-BNP; Complete Time: 11:24 06/19 10:21 Order name: PT-INR; Complete Time: 11:04 06/19 10:21 Order name: Troponin (emerg Dept Use Only); Complete Time: 11:24 06/19 10:21 Order name: XRAY Chest (1 view); Complete Time: 11:04 06/19 10:21 Order name: EKG; Complete Time: 10:22 06/19 10:21 Order name: ABG 06/19 10:21 Order name: CT Head Brain wo Cont; Complete Time: 11:04 06/19 11:30 Order name: Diet Heart Healthy; Complete Time: 11:31 06/19 10:21 Order name: Cardiac monitoring; Complete Time: 10:58 06/19 10:21 Order name: EKG - Nurse/Tech; Complete Time: 10:58 06/19 10:21 Order name: IV Saline Lock; Complete Time: 10:58 06/19 10:21 Order name: Labs collected and sent; Complete Time: 06/19 10:21 Order name: O2 Per Protocol; Complete Time: 06/19 10: Order name: O2 Sat Monitoring; Complete Time: : Administered Medications: No medications were administered Point of Care Testing: Blood Glucose: 10:04 Blood Glucose: 91 mg/dL; aa5 Ranges: Critical Glucose Levels:Adult <50 mg/dl or >400 mg/dl <40 mg/dl or >180 mg/dl Disposition: 06/19/18 11:32 Discharged to Home. Impression: Tachycardia, unspecified. - Condition is Stable. - Discharge Instructions: Holter Monitoring, Atrial Flutter, Atrial Fibrillation, [id number], Sinus Tachycardia. - Medication Reconciliation Form, Thank You Letter, Antibiotic Education, Prescription Opioid Use form. - Follow up: Clinton Schulz MD; When: Today; Reason: Recheck today's complaints, Re-evaluation by your physician. - Problem is new. - Symptoms are resolved. Signatures: Dispatcher [employer] EDMS Cathie Vergara, RN RN Yennifer Isidro RN RN aa5 Luis Eduardo Hernandez MD MD Corrections: (The following items were deleted from the chart) 11:49 11:32 06/19/2018 11:32 Discharged to Home. Impression: Tachycardia, unspecified. aa5 Condition is Stable. Forms are Medication Reconciliation Form, Thank You Letter, Antibiotic Education, Prescription Opioid Use. Follow up: Clinton Schulz; When: Today; Reason: Recheck today's complaints, Re-evaluation by your physician. Problem is new. Symptoms are resolved. gs
--- NOTE | 2018-06-19 11:33 | ER ---
Nurse's Notes [facility] Name: Kelle Calderón Age: 43 yrs Sex: Female : 1975 Arrival Date: 06/19/2018 Time: 10:04 Bed 26 Private MD: Bridgett Dhaliwal Diagnosis: Tachycardia, unspecified Presentation: 06/19 10:04 Presenting complaint: Significant other states: "today she started shaking, she got aa5 really hot, and looked at me weird so I took her to the doctor and they did an EKG and it showed an arrhythmia so they told me to bring her here". Pt slow to respond to questions at this time. Pt's states "she had a stroke a week ago and got TPA and has been in rehab for it". 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 Onset of symptoms was June 192018. Care prior to arrival: None. 10:04 Method Of Arrival: Wheelchair aa5 10:04 Acuity: SIMRAN 2 aa5 16:52 Risk Assessment: Do you want to hurt yourself or someone else? Patient reports no ch desire to harm self or others. Initial Sepsis Screen: Does the patient meet any 2 criteria? No. Patient's initial sepsis screen is negative. Does the patient have a suspected source of infection? No. Patient's initial sepsis screen is negative. Triage Assessment: 10:20 General: Appears in no apparent distress. comfortable, Behavior is cooperative, drowsy. ch Pain: Denies pain. 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 - Irregular menses ch Historical: - Allergies: 10:55 Warfarin; ch - Home Meds: 10:55 albuterol sulfate 2.5 mg /3 mL (0.083 %) Inhl nebu twice a day [Active]; amlodipine 10 ch mg tab 1 tab once daily [Active]; aspirin 81 mg Oral TbEC 1 tab once daily [Active]; atorvastatin 40 mg Oral tab 1 tab once daily [Active]; gabapentin 100 mg Oral cap 3 caps 3 times per day [Active]; Linzess 145 mcg Oral cap 1 cap once daily [Active]; lisinopril 20 mg Oral tab 1 tab once daily [Active]; metformin 500 mg Oral tab 1 tab 2 times per day [Active]; pantoprazole 40 mg Oral TbEC 1 tab once daily [Active]; prednisone 5 mg Oral tab once daily [Active]; Robaxin 500 mg Oral tab 2 tabs 4 times per day [Active]; Tylenol #4 Oral [Active]; venlafaxine 75 mg Oral tab 2 times per day [Active]; - PMHx: 10:55 Asthma; bells palsy; Chronic pain; CVA; Depression; Diabetes - NIDDM; GERD; ch Hypertension; Irritable bowel syndrome; Kidney stones; lymphedema; Migraines; Sleep Apnea; - PSHx: 10:55 Hysterectomy; Hernia repair; Knee surgery; ch - Immunization history:: Adult Immunizations up to date. - Ebola Screening: : No symptoms or risks identified at this time. - Social history:: Smoking status: Patient/guardian denies using tobacco. Screenin:05 Abuse screen: Denies threats or abuse. Denies injuries from another. Nutritional ch screening: No deficits noted. Tuberculosis screening: No symptoms or risk factors identified. Fall Risk Fall in past 12 months (25 points). Secondary diagnosis (15 points) IV access (20 points). Ambulatory Aid- None/Bed Rest/Nurse Assist (0 pts). Gait- Impaired (20 pts.). Mental Status- Overestimates/Forgets Limitations (15 pts.). Total Mckinney Fall Scale indicates High Risk Score (45 or more points). Fall prevention measures have been instituted. Side Rails Up X 2 Placed Close to Nursing Station Frequent Obs/Assessments Occuring Family Present and informed to notify staff if the need to leave the bedside As available patient and family educated on Fall Prevention Program and Strategies. Assessment: 10:15 Pain: Complains of pain in chest Pain does not radiate. Neuro: Level of Consciousness daryl is awake, alert, obeys commands, confused, Oriented to person, place, Administrative Support Technician are equal bilaterally Weakness Gait is shuffling, Speech is normal, is slurred, states she is slow to respond, but the slight slurring of words is her normal now after the stroke. Facial symmetry appears normal, Facial symmetry: tongue is midline, Pupils are PERRLA. Cardiovascular: Heart tones S1 S2 present Capillary refill < 3 seconds in bilateral fingers toes Clubbing of nail beds is absent Pulses are all present. Edema is 2+ to left midcalf, left ankle, left foot, left toes, right midcalf, right ankle, right foot and right toes Rhythm is regular. Respiratory: Airway is patent Respiratory effort is even, unlabored, Respiratory pattern is regular, Breath sounds are clear bilaterally. GI: No signs and/or symptoms were reported involving the gastrointestinal system. : No signs and/or symptoms were reported regarding the genitourinary system. Derm: Skin is pink, warm \\T\\ dry. 10:20 Pain: Pain began 3 hours ago. ch 10:46 Reassessment: Patient appears in no apparent distress at this time. pt in ct now. ch Vital Signs: 10:05 BP 134 / 78; Pulse 59; Resp 12; Temp 98.4; Pulse Ox 99% on R/A; Pain 6/10; ch 11:30 BP 152 / 113; Pulse 52; Resp 10; Temp 98.4(O); Pulse Ox 99% on R/A; Pain 6/10; ch ED Course: 10:04 Patient arrived in ED. sb2 10:04 Bridgett Dhaliwal is Private Physician. sb2 10:04 Arm band placed on Patient placed in an exam room, on a stretcher. aa5 10:05 No apparent distress. Resting quietly. ch 10:06 EKG done, by central sterile tech. reviewed by Luis Eduardo Hernandez MD. at1 10:07 Luis Eduardo Hernandez MD is Attending Physician. gs 10:10 Triage completed. aa5 10:14 Cathie Vergara, RN is Primary Nurse. ch 10:20 Patient has correct armband on for positive identification. Placed in gown. Bed in low ch position. Call light in reach. Side rails up X2. Adult w/ patient. board member on. Pulse ox on. NIBP on. Warm blanket given. 10:20 No provider procedures requiring assistance completed. Inserted saline lock: 20 gauge ch in right antecubital area, using aseptic technique. Blood collected. Patient maintains SpO2 saturation greater than 95% on room air. 10:35 CT completed. Patient tolerated procedure well. Patient moved to CT via stretcher. sj Patient moved back from CT. 10:36 CT Head Brain wo Cont In Process Unspecified. EDMS 10:42 X-ray completed. Patient tolerated procedure well. Patient moved to radiology via jb2 stretcher. Patient moved back from radiology. 10:46 XRAY Chest (1 view) In Process Unspecified. EDMS 10:58 LFT's Sent. 10:58 Basic Metabolic Panel Sent. 10:58 Magnesium Sent. 10:58 NT PRO-BNP Sent. 10:58 Troponin (emerg Dept Use Only) Sent. ch 11:30 IV discontinued, intact, bleeding controlled, No redness/swelling at site. Pressure ch dressing applied. 11:31 Clinton Schulz MD is Referral Physician. Administered Medications: No medications were administered Point of Care Testing: Blood Glucose: 10:04 Blood Glucose: 91 mg/dL; aa5 Ranges: Outcome: 11:32 Discharge ordered by . 11:45 Discharged to home via wheelchair, with family. 11:45 Condition: improved 11:45 Discharge instructions given to patient, family, Instructed on discharge instructions, follow up and referral plans. Demonstrated understanding of instructions, follow-up care. 11:49 Patient left the ED. aa5 Signatures: Dispatcher [employer] Cathie Chaudhari, JOSEY RN Arnold Jeffrey jb2 Renee Perkins Audri, RN RN aa5 Coretta Dumont, utilities estimator and drafter EKG Tat1 Luis Eduardo Hernandez MD MD Leann Swann sb2
[2018-06-19 11:56] VITALS: TEMP 98.4; O2SAT 99
[2018-06-19 11:58] VITALS: BP 152/113
--- NOTE | 2018-06-19 12:51 | EKG ---
Test Date: 2018-06-19 Test Time: 10:06:10 Program Officer: LASHAE MEASUREMENT RESULTS: Intervals: Rate: 60 CO: 126 QRSD: 86 QT: 412 QTc: 412 [place]: P: 19 CO: 126 QRS: 31 T: 41 INTERPRETIVE STATEMENTS: Normal sinus rhythm with sinus arrhythmia Normal ECG Compared to ECG 06/13/2018 00:08:03 no significant change from previous ECG Electronically Signed On 06-19-18 12:51:12 PROGRAMMING DIRECTOR by Clinton Schulz
== END 2018-06-19 11:49 | disposition home or self-care (01) ==
LOC: ER 10:02
DX: R00.0 Tachycardia, unspecified (principal); J45.909 Unspecified asthma, uncomplicated; E11.9 Type 2 diabetes mellitus without complications; I10 Essential (primary) hypertension; K21.9 Gastro-esophageal reflux disease without esophagitis; K52.3 Indeterminate colitis; G47.30 Sleep apnea, unspecified; G89.29 Other chronic pain; F32.9 Major depressive disorder, single episode, unspecified; Z79.84 Long term (current) use of oral hypoglycemic drugs; Z79.82 Long term (current) use of aspirin; Z79.899 Other long term (current) drug therapy; Z86.73 Personal history of transient ischemic attack (TIA), and cerebral infarction without residual deficits
CPT/HCPCS: 36415; 70450; 71045; 80048; 80076; 82805; 82962; 83735; 83880; 84484; 85025; 85610; 93005; 99285

== ENCOUNTER 2018-10-01 23:20 | Emergency (ER) | payer OTHER ==
--- OUTSIDE RECORDS SUMMARY | 2018-10-01 23:23 | XMS REPORT | Continuity of Care Document ---
:1975 Author Organization Interface Problems Problem Status Onset Classification Date Comments Source Date Reported GASTRO Active 09/05/[address] STROKE Active 06/13/19 [facility] [place] ACUTE Active 06/13/19 [facility] CEREBROVASCULAR [place] ACCIDENT [employer] [employer] Active 12/08/[address] [employer] FLIGHT Active 04/06/[address] Diabetes Active Problem 09/29/2018 [facility] Heartburn Active Problem 09/29/2018 [facility] CEREBRAL Active [facility] INFARCTION, City UNSPECIFIED ILLNESS, Active [facility] UNSPECIFIED [place] Medications Medication Details Route Status Patient Ordering Order Source Instructions Provider Date Oxycodone 5 mg, 1 tab, No Longer [facility] Route: PO, Drug Active 2018 Medical form: TAB, Q4H, Center Dosing Weight 164.5, kg, PRN Pain Score 4-6, Start date: 09/27/18 10:24:00 CDT, Duration: 30 day, Stop date: 10/27/18 10:23:00 CDTNotes: (Same as: Roxicodone) Promethazine 6.25 mg, 0.25 No Longer [facility] mL, Route: IVPB, Active 2018 Medical Drug form: INJ, Center ONCE, Dosing Weight 164.5, kg, PRN Nausea & Vomiting, Start date: 09/27/18 10:24:00 CDTNotes: Do not give IV push. (Same as: Phenergan) Hydralazine 10 mg, 0.5 mL, No Longer [facility] Route: IVP, Drug Active 2018 Medical form: INJ, Center Q20Min, Dosing Weight 164.5, kg, PRN Elevated BP, Start date: 09/27/18 10:24:00 CDT, Duration: 2 doses or times, Stop date: Limited # of timesNotes: (Same as: Apresoline) Push over 5 minutes Labetalol 10 mg, 2 mL, No Longer [facility] Route: IVP, Drug Active 2019 Medical form: INJ, Center Q5Min, Dosing Weight 164.5, kg, PRN Elevated BP, Start date: 09/27/18 10:24:00 CDT, Duration: 5 doses or times, Stop date: Limited # of times Ondansetron 4 mg, 2 mL, Inactive [facility] Route: IVP, Drug 2018 Medical form: INJ, ONCE, Center Dosing Weight 164.5, kg, PRN Nausea & Vomiting, Start date: 09/27/18 10:24:00 CDTNotes: (Same as: Zofran) MEDICATION WASTE Product Size: 4 mg Product Wasted: ___ mg Naloxone 0.4 mg, 1 mL, No Longer [facility] Route: IVP, Drug Active 2018 Medical form: INJ, Center Q2MIN, Dosing Weight 164.5, kg, PRN Narcotic Reversal, Start date: 09/27/18 10:24:00 CDT, Duration: 8 doses or times, Stop date: Limited # of timesNotes: Same as Narcan Flumazenil 0.2 mg, 2 mL, No Longer [facility] Route: IVP, Drug Active 2018 Medical form: INJ, PRN, Center Dosing Weight 164.5, kg, PRN Benzodiazepine Reversal, Initial dose, Start date: 09/27/18 10:24:00 CDT, Duration: 30 day, Stop date: 10/27/18 10:23:00 CDTNotes: (Same as: Romazicon) albuterol 90 2 puff, Active [facility] mcg/inh INHALATION, PRN, 2019 Medical inhalation 0 Refill(s) [place] aerosol Symbicort 2 puff, Active [facility] 160/4.5 INHALATION, 2019 Medical inhalation Daily, 0 Center aerosol with Refill(s) adapter Dexilant PO, Daily, 0 Active [facility] Refill(s) 2019 [facility] topiramate 50 50 mg=1 tab, PO, Active [facility] MG Oral Tablet BID, # 60 tab, 0 2019 Medical [Topamax] Refill(s) Center Amlodipine PO, PRN, 0 Active [facility] Refill(s) 2019 [facility] Vitamin D3 =1 cap, PO, Active [facility] [place] Every Other Day, 2018 Medical 0 Refill(s) Center pantoprazole 50 mg, PO, BID, Active [place] 20 MG Enteric 0 Refill(s) 2018 Medical Coated Tablet Center [Protonix] lisinopril 10 10 mg=1 tab, PO, Active [place] mg oral tablet Daily, 0 2018 Medical Refill(s) Center Allergies, Adverse Reactions, Alerts Substance Category Reaction Severity Reaction Status Date Comments Source type Reported warfarin Assertion Drug Active [facility] Plavix Assertion Drug Active [facility] Immunizations Immunization Date Site Status Last Updated Comments Source Given pneumococcal Left completed [facility] 23-valent vaccine 9 [facility] Results Order Name Results Value Reference Date Interpretation Comments Source Range CHEM PANEL eGFR 100 09/13 Result Comment: The eGFR is calculated using the CKD-EPI formula. In most young, healthy individuals the eGFR will be >90 mL/ min/1.73m2. The eGFR declines with age. An eGFR of 60-89 may be normal in [facility] mL/min/1.7 some populations, particularly the elderly, for whom the CKD-EPI formula has not been extensively validated. Use of the eGFR is not recommended in the following populations: [address] Individuals with unstable creatinine concentrations, including patients and those with serious co-morbid conditions. Patients with extremes in muscle mass or diet. The data above are obtained from the National Kidney Disease Education Program (NKDEP) which additionally recommends that when the eGFR is used in patients with extremes of body mass index for purposes of drug dosing, the eGFR should be multiplied by the estimated BMI. Collection date/time has been modified to: 13:47:00. Previous collection date/time: 15:13:00. CHEM PANEL Globulin 3.8 g/dL 2.7 - 4.2 09/13 Result Comment: [facility] date/time has been modified to: 13:47:00. Previous collection date/time: 15:13:00. CHEM PANEL A/G Ratio 1.0 0.7 - 1.6 09/13 Result Comment: [facility] date/time has been modified to: 13:47:00. Previous collection date/time: 15:13:00. CHEM PANEL Bili Total 0.3 mg/dL 0.2 - 1.3 09/13 Result [facility] Comment: [facility] date/time has been modified to: 13:47:00. Previous collection date/time: 15:13:00. CHEM PANEL AGAP 10.8 meq/L 10.0 - 0403 Result [facility] 20.0 Comment: [facility] date/time has been modified to: 13:47:00. Previous collection date/time: 15:13:00. CHEM PANEL B/C Ratio 23 6 - 25 09/13 Result [facility] Comment: [facility] date/time has been modified to: 13:47:00. Previous collection date/time: 15:13:00. CHEM PANEL Potassium 3.8 meq/L 3.5 - 5.1 09/13 Result [facility] Comment: [facility] date/time has been modified to: 13:47:00. Previous collection date/time: 15:13:00. CHEM PANEL Sodium Lvl 143 meq/L 135 - 145 09/13 Result [facility] Comment: [facility] date/time has been modified to: 13:47:00. Previous collection date/time: 15:13:00. CHEM PANEL Chloride Lvl 108 meq/L 95 - 109 09/13 Result [facility] Comment: [facility] date/time has been modified to: 13:47:00. Previous collection date/time: 15:13:00. CHEM PANEL AST 23 unit/L 0 - 37 09/13 Result [facility] Comment: [facility] date/time has been modified to: 13:47:00. Previous collection date/time: 15:13:00. CHEM PANEL Alk Phos 88 unit/L 39 - 136 09/13 Result [facility] Comment: [facility] date/time has been modified to: 13:47:00. Previous collection date/time: 15:13:00. CHEM PANEL ALT 21 unit/L 0 - 65 09/13 Result Comment: [facility] date/time has been modified to: 13:47:00. Previous collection date/time: 15:13:00. CHEM PANEL CO2 28 meq/L 24 - 32 09/13 Result Comment: [facility] date/time has been modified to: 13:47:00. Previous collection date/time: 15:13:00. CHEM PANEL Calcium Lvl 8.8 mg/dL 8.5 - 10.5 09/13 Result Comment: [facility] date/time has been modified to: 13:47:00. Previous collection date/time: 15:13:00. CHEM PANEL Albumin Lvl 3.7 g/dL 3.5 - 5.0 09/13 Result Comment: [facility] date/time has been modified to: 13:47:00. Previous collection date/time: 15:13:00. CHEM PANEL Total 7.5 g/dL 6.4 - 8.4 09/13 Result [facility] Comment: [facility] date/time has been modified to: 13:47:00. Previous collection date/time: 15:13:00. CHEM PANEL Glucose Lvl 84 mg/dL 70 - 99 09/13 Result Comment: [facility] date/time has been modified to: 13:47:00. Previous collection date/time: 15:13:00. CHEM PANEL Creatinine 0.74 mg/dL 0.50 - 09/13 Result [facility] Lvl 1.40 /2018 Comment: [facility] date/time has been modified to: 13:47:00. Previous collection date/time: 15:13:00. CHEM PANEL BUN 17 mg/dL 7 - 22 09/13 Result Comment: [facility] date/time has been modified to: 13:47:00. Previous collection date/time: 15:13:00. HEMATOLOGY Eosinophils 0.1 K/CMM 0.0 - 0.5 09/13 Result [facility] # /2018 Comment: [facility] date/time has been modified to: 13:47:00. Previous collection date/time: 15:13:00. HEMATOLOGY Monocytes 4.4 % 2.0 - 12.0 09/13 Result [facility] /2019 Comment: [facility] date/time has been modified to: 13:47:00. Previous collection date/time: 15:13:00. HEMATOLOGY Eosinophils 1.6 % 0.0 - 4.0 09/13 Result [facility] /2018 Comment: [facility] date/time has been modified to: 13:47:00. Previous collection date/time: 15:13:00. HEMATOLOGY Basophils 0.2 % 0.0 - 1.0 09/13 Result [facility] /2018 Comment: [facility] date/time has been modified to: 13:47:00. Previous collection date/time: 15:13:00. HEMATOLOGY Lymphocytes 23.0 % 20.0 - 09/13 Result [facility] 40.0 Comment: [facility] date/time has been modified to: 13:47:00. Previous collection date/time: 15:13:00. HEMATOLOGY Neutrophils 5.3 K/CMM 1.5 - 8.1 09/13 Result [facility] # /2018 Comment: [facility] date/time has been modified to: 13:47:00. Previous collection date/time: 15:13:00. HEMATOLOGY Lymphocytes 1.7 K/CMM 1.0 - 5.5 09/13 Result [facility] # /2018 Comment: [facility] date/time has been modified to: 13:47:00. Previous collection date/time: 15:13:00. HEMATOLOGY Monocytes # 0.3 K/CMM 0.0 - 0.8 09/13 Result [facility] /2019 Comment: [facility] date/time has been modified to: 13:47:00. Previous collection date/time: 15:13:00. HEMATOLOGY Segs 70.8 % 45.0 - 04/03 Result [facility] 75.0 /2018 Comment: [facility] date/time has been modified to: 13:47:00. Previous collection date/time: 15:13:00. HEMATOLOGY MCHC 32.7 g/dL 32.0 - 0403 Result [facility] 36.0 /2018 Comment: [facility] date/time has been modified to: 13:47:00. Previous collection date/time: 15:13:00. HEMATOLOGY Hct 39.9 % 36.0 - 09/13 Result [facility] 48.0 Comment: [facility] date/time has been modified to: 13:47:00. Previous collection date/time: 15:13:00. HEMATOLOGY MCV 87.0 fL 80.0 - 09/13 Result [facility] 98.0 Comment: [facility] date/time has been modified to: 13:47:00. Previous collection date/time: 15:13:00. HEMATOLOGY MCH 28.5 pg 27.0 - 09/13 Result [facility] 31.0 Comment: [facility] date/time has been modified to: 13:47:00. Previous collection date/time: 15:13:00. HEMATOLOGY RDW 14.8 % 11.5 - /03 Result [facility] 14.5 Comment: [facility] date/time has been modified to: 13:47:00. Previous collection date/time: 15:13:00. HEMATOLOGY Hgb 13.0 g/dL 12.0 - 03 Result [facility] 16.0 Comment: [facility] date/time has been modified to: 13:47:00. Previous collection date/time: 15:13:00. HEMATOLOGY Platelet 197 K/CMM 133 - 450 09/13 Result [place] /2018 Comment: [facility] date/time has been modified to: 13:47:00. Previous collection date/time: 15:13:00. HEMATOLOGY MPV 10.2 fL 7.4 - 10.4 09/13 Result [facility] Comment: [facility] date/time has been modified to: 13:47:00. Previous collection date/time: 15:13:00. HEMATOLOGY RBC 4.59 M/CMM 4.20 - 09/13 Result [facility] 5.40 Comment: [facility] date/time has been modified to: 13:47:00. Previous collection date/time: 15:13:00. HEMATOLOGY WBC 7.4 K/CMM 3.7 - 10.4 09/13 Result [facility] Comment: [facility] date/time has been modified to: 13:47:00. Previous collection date/time: 15:13:00. SPECIAL Hgb A1C 6.2 % <=5.6 % 09/13 Result [facility] CHEMISTRY Comment: [facility] date/time has been modified to: 13:47:00. Previous collection date/time: 15:13:00. Chest 1view Chest 1view Frontal chest radiograph 06/14 - DX DX - [facility] INDICATION: Cough Read by: Tyler Bautista MD Dictated Date/time: 06/14/18 05:39 Electronically Signed by: Tyler Bautista MD 06/14/18 05:41 FINAL REPORT COMPARISON: 06/13/2018 FINDINGS: Heart/mediastinum: Cardiomegaly is unchanged LUNGS: Pulmonary congestion is improving. There is still focal atelectasis or fibrosis in the medial right upper lobe. Support lines/tubes: Endotracheal tube and NG tube been removed. Bone structures: no acute changes Upper Abdomen: unremarkable Impression: Improving pulmonary congestion Brain wo Brain wo PATIENT NAME: GIOVANNY HARRISON 06/13 - contrast contrast MRI /2018 - [facility] : 1975; Age: 43 years y/o Female [facility] MR: [id number] Read by: Clinton Perez MD Dictated Date/time: 06/13/18 16:37 Electronically Signed by: Clinton Perez MD 06/13/18 16:39 FINAL REPORT STUDY: Brain wo contrast MRI 06/13/2018 9:40 CONTACT PERSON ORDERING PHYSICIAN: Sakina Way DO CLINICAL INDICATION: - Unresponsive; COMPARISON: There are 07/02/[address] TECHNIQUE: Multiplanar noncontrast MRI of the brain is performed. FINDINGS: BRAIN PARENCHYMA: There is no hemorrhage, mass lesion, extra axial collection, cerebral edema, or mass effect. Diffusion sequences are normal. Brain volume is age-appropriate. There is no focal bell o r white matter signal abnormality. The cerebellar tonsils are above foramen magnum. The pituitary gland is age-appropriate. CEREBELLOPONTINE REGIONS AND SKULL BASE: The cerebellopontine angles appear unremarkable. No skull base abnormality is seen. VENTRICLES/SULCI/CISTERNS: The ventricles are normal in size and configuration. The basal cisterns are patent. VISUALIZED VESSELS: Major intracranial flow voids are preserved. ORBITS, VISUALIZED PARANASAL SINUSES AND MASTOIDS: Paranasal sinuses are clear. The mastoid air cells are clear. No orbital pathology is seen. IMPRESSION: Normal MRI brain without contrast Brain Brain Stroke I reviewed the images and agree with the report 06/13 - Stroke wo wo contrast - [facility] contrast CT CT CT brain without contrast [facility] Read by: Niles Burgos MD Dictated Date/time: 06/13/18 07:10 Clinical Indication: Absent of reflexes - unresponsive Electronically Signed by: Niles Burgos MD 06/13/18 07 :11 FINAL REPORT - - COMPARISON: None Read by: Tyler Bautista MD Dictated Date/time: 06/13/18 05:42 TECHNIQUE: Axial CT images of the brain are obtained from the skull base to the vertex. Axial, sagittal, and coronal images are interpreted. Electronically Signed by: Tyler Bautista MD 06/13/18 05 :43 FINAL REPORT DLP: 1131 mGy-cm. This exam was performed according to our departmental dose-optimization protocol, which includes automated exposure control, adjustment of the mA and/or kV according to patient size an d/or use of iterative reconstruction technique. FINDINGS: Gyri/sulci: symmetric Ventricles: normal size Parenchyma: no masses, hemorrhage, shift or ischemia Orbits: normal Paranasal sinuses: clear Mastoids/temporal bones: unremarkable Calvarium: unremarkable NG tube and endotracheal tube are present. IMPRESSION: Unremarkable CT brain without contrast. Chest 1 v Chest 1 v Indication: Respiratory failure 06/13 - for - [facility] Placement Placement DX City DX COMPARISON: None Read by: Tyler Bautista MD Dictated Date/time: 06/13/18 04:59 Electronically Signed by: Tyler Bautista MD 06/13/18 04:59 FINAL REPORT Findings/impression: Portable chest radiograph demonstrates mild cardiomegaly. Central pulmonary congestion is identified with a poor inspiration. Endotracheal tube is in the mid trachea. NG tube is in the mid gastric region. Vital Signs Vital Sign Value Date Comments Source Respitory Rate 17 09/27/2018 [facility] Systolic (mm Hg) 120 09/27/2018 [facility] Diastolic (mm Hg) 65 09/27/2018 [facility] Systolic (mm Hg) 107 09/27/2018 [facility] Diastolic (mm Hg) 59 09/27/2018 [facility] Respitory Rate 13 09/27/2018 [facility] Systolic (mm Hg) 104 09/27/2018 [facility] Diastolic (mm Hg) 57 09/27/2018 [facility] Respitory Rate 18 09/27/2018 [facility] Heart Rate 64 09/27/2018 [facility] BMI Calculated 64.24 09/13/2018 [facility] Weight 164.5 09/13/2018 [facility] Height 160.02 cm 09/13/2018 [facility] Heart Rate 82 09/13/2018 [facility] Encounters Location Location Encounter Encounter Reason Attending ADM DC Status Source Details Type Number For Provider Date Date Visit [id number] Michael 09/27 09/28 [facility] Procedures Procedure Code Date Perfomer Comments Source Arthroscopy of knee [id number] 01/13/2015 [facility] with medial and Medical lateral meniscectomy [place] Operation<sup>1</sup> [id number] 06/13/2013 right knee [facility] Cholecystectomy [id number] 06/13/2009 [facility] Hernia repair [id number] 06/13/2009 [facility] Hysterectomy [id number] 06/13/2008 [facility] Tubal ligation [id number] 06/13/1996 [facility] [id number] 06/13/19921996 [facility] section<sup>2</sup> [facility] Operation<sup>3</sup> [id number] 06/13/1980 mole removed [facility] on right leg [facility]
--- OUTSIDE RECORDS SUMMARY | 2018-10-01 23:23 | XMS REPORT | Clinical Summary ---
:1975 Author Organization [facility] Address [address] [place] [address] Care Team Providers Name Role Phone Pcp, No Primary Care Provider Unavailable Allergies Active Allergy Reactions Severity Noted Date Comments Clopidogrel Other (See Comments) High 08/21/2018 Decreases heartrate Warfarin Nausea And Vomiting 06/07/2016 Medications Medication [...] mouth nightly. Active Problems Problem Noted Date Cough 08/21/2018 Generalized headache 08/21/2018 Left-sided weakness 12/08/2017 Status post administration of tPA (rtPA) in a different facility within 2017 the last 24 hours prior to admission to current facility Acute ischemic stroke 12/07/2017 Headache, acute 05/02/2017 CVA (cerebral vascular accident) 06/07/2016 Encounters Date Type Specialty Care Team Description 08/21/2018 Emergency Emergency Natanael Hernandez Cough (Primary Dx); Medicine MD Tien Generalized headache; Obesity without serious comorbidity, unspecified classification, unspecified obesity type; Hypertension, unspecified type 08/21/2018 Travel 12/07/2017 - Hospital Encounter Intensive Care Andrea Roberson Acute ischemic stroke (HCC); 12/09/2017 MD Dori Left-sided weakness; Status post administration of tPA (rtPA) in a different facility within the last 24 hours prior to admission to current facility; Functional neurological symptom disorder with weakness or paralysis after 09/30/2017 Family History Medical History Relation Name Comments [...] Vital Sign Reading Time Taken Blood Pressure 139/78 08/21/2018 5:00 PM CDT Pulse 75 08/21/2018 5:00 PM CDT Temperature 36.9 C (98.5 F) 08/21/2018 5:00 PM CDT Respiratory Rate 19 08/21/2018 11:47 AM CDT Oxygen Saturation 94% 08/21/2018 4:17 PM CDT Inhaled Oxygen Concentration - - Weight 155.1 kg (342 lb) 08/21/2018 11:47 AM CDT Height 160 cm (5' 3") 08/21/2018 11:47 AM CDT Body Mass Index 60.58 08/21/2018 11:47 AM CDT Plan of Treatment Not on file Procedures Procedure Name Priority Date/Time Associated Comments Diagnosis XR CHEST 2 VIEWS STAT 08/21/2018 3:39 Results for this PM CDT procedure are in the results section. REPORT OF PROCEDURE - 12/12/2017 2:21 ENDOSCOPY [...] procedure are in the results section. after 09/30/2017 Results XR chest 2 views (08/21/2018 3:39 PM CDT) Specimen Narrative Performed At FINAL REPORT [facility] Chest, PA and lateral. History: Cough. Comparison: 12/07/2017. Discussion: Mild cardiomegaly. The lungs are clear without evidence of consolidation or effusion.There are no acute osseous abnormalities. The soft tissues are unremarkable. IMPRESSION: No acute cardiopulmonary abnormality. Signed: Joseph Ford MD Report Verified Date/Time:08/21/2018 15:49:59 Reading Location: [facility] Reading Room Procedure Note Interface, External Ris In - 08/21/2018 3:52 PM CDT FINAL REPORT Chest, PA and lateral. History: Cough. Comparison: 12/07/2017. Discussion: Mild cardiomegaly. The lungs are clear without evidence of consolidation or effusion. There are no acute osseous abnormalities. The soft tissues are unremarkable. IMPRESSION: No acute cardiopulmonary abnormality. Signed: Joseph Ford MD Report Verified Date/Time: 08/21/2018 15:49:59 Reading Location: [facility] Mammo Reading Room Performing Organization Address City/[facility]/Zipcode Phone Number GE RIS EKG-SCANNED (12/12/2017 2:21 PM CDT) Narrative Performed At RHYTHM STRIP - SCAN (12/12/2017 2:21 PM CDT) Narrative Performed At POC-Glucose meter (12/09/2017 8:19 AM CDT)Only the most recent of6 resultswithin the time period is included. POC-Glucose Meter 99Comment: TESTED AT 70 - 110 mg/dL [facility] [address] [facility] [id number] Specimen Blood Performing Organization Address City/[facility]/Zipcode Phone Number [address] [address] [phone] CENTER CBC with platelet count + automated diff (12/09/2017 4:35 AM CDT)Only the most recent of3 resultswithin the time period is included. WBC 6.7 3.5 - 10.5 K/L [facility] RBC 4.08 3.93 - 5.22 M/L [facility] Hemoglobin 11.4 11.2 - 15.7 GM/DL [facility] Hematocrit 37.6 34.1 - 44.9 % [facility] MCV 92.2 79.4 - 94.8 fL [facility] MCH 27.9 25.6 - 32.2 pg [facility] MCHC 30.3 (L) 32.2 - 35.5 GM/DL [facility] RDW 14.6 (H) 11.7 - 14.4 % [facility] Platelets 192 150 - 450 K/CU MM [facility] MPV 11.9 9.4 - 12.3 fL [facility] nRBC 0 0 - 0 /100 WBC [facility] % Neutros 69 % [facility] % Lymphs 25 % [facility] % Monos 5 % [facility] % Eos 2 % [facility] % Baso 0 % [facility] # Neutros 4.59 1.56 - 6.13 K/L [facility] # Lymphs 1.65 1.18 - 3.74 K/L [facility] # Monos 0.30 0.24 - 0.36 K/L [facility] # Eos 0.11 0.04 - 0.36 K/L [facility] # Baso 0.01 0.01 - 0.08 K/L [facility] Immature Granulocytes-Relative 0 0 - 1 % [facility] Specimen Blood Performing Organization Address City/State/Zipcode Phone Number [facility] [address] [place] [address] CENTER Basic Metabolic Panel (12/09/2017 4:35 AM CDT)Only the most recent of2 resultswithin the time period is included. Sodium 140 136 - 145 meq/L [facility] Potassium 3.9 3.5 - 5.1 meq/L [facility] Chloride 105 98 - 107 meq/L [facility] CO2 28 22 - 29 meq/L [facility] BUN 11 7 - 21 mg/dL [facility] Creatinine 0.62 0.57 - 1.25 mg/dL [facility] Glucose 107 (H) 70 - 105 mg/dL [facility] Calcium 8.8 8.4 - 10.2 mg/dL [facility] EGFR 106Comment: ESTIMATED GFR IS mL/min/1.73 sq m [facility] NOT ACCURATE CREATININE [facility] CLEARANCE IN PREDICTING GLOMERULAR FILTRATION RATE. ESTIMATED GFR IS NOT APPLICABLE FOR DIALYSIS PATIENTS. Specimen Blood Performing Organization Address City/State/Zipcode Phone Number [facility] [address] [place] [address] [phone] CENTER MR brain without IV contrast (12/08/2017 8:00 PM CDT) Specimen Narrative Performed At FINAL REPORT [facility] MRI Brain without contrast Clinical History: Stroke [...] MD Report Verified Date/Time:12/08/2017 20:02:46 Reading Location: [facility] Radiology Reading Room Procedure Note Interface, [...] Report Verified Date/Time: 12/08/2017 20:02:46 Reading Location: [facility] Radiology Reading Room Performing Organization Address City/State/Zipcode Phone Number [facility] MRA neck without IV contrast (12/08/2017 8:00 PM CDT) Specimen Narrative Performed At FINAL REPORT [facility] MRA Head CLINICAL HISTORY: Stroke TECHNIQUE: MRA of the head utilizing 3-D jdbr-qa-rlucmt technique, with 3-D reconstructions. COMPARISON: None FINDINGS: There is no evidence of intracranial aneurysm, focal stenosis, or major branch vessel occlusion. There is a origin of the right posterior cerebral artery. IMPRESSION: No evidence for a major ruby of [place] proximal branch vessel occlusion. MRA Neck CLINICAL HISTORY: Stroke TECHNIQUE: MRA of the neck utilizing 2-D and 3-D vcci-jr-wonknx technique, with 3-D reconstructions. COMPARISON: None FINDINGS: The carotid arteries in the neck are patent including their bifurcations. There is antegrade flow in the vertebral arteries in the neck. IMPRESSION: No evidence of hemodynamically significant stenosis in the cervical carotid or vertebral arteries by NASCET criteria. Signed: Madeleine Macias MD Report Verified Date/Time:12/08/2017 20:13:50 Reading Location: [facility] Radiology Reading Room Procedure Note Interface, External Ris In - 12/08/2017 8:15 PM CDT FINAL REPORT MRA Head CLINICAL HISTORY: Stroke TECHNIQUE: MRA of the head utilizing 3-D rucn-al-kxoxjb technique, with 3-D reconstructions. COMPARISON: None FINDINGS: There is no evidence of intracranial aneurysm, focal stenosis, or major branch vessel occlusion. There is a origin of the right posterior cerebral artery. IMPRESSION: No evidence for a major ruby of [place] proximal branch vessel occlusion. MRA Neck CLINICAL HISTORY: Stroke TECHNIQUE: MRA of the neck utilizing 2-D and 3-D lsdm-pq-anndnl technique, with 3-D reconstructions. COMPARISON: None FINDINGS: The carotid arteries in the neck are patent including their bifurcations. There is antegrade flow in the vertebral arteries in the neck. IMPRESSION: No evidence of hemodynamically significant stenosis in the cervical carotid or vertebral arteries by NASCET criteria. Signed: Madeleine Macias MD Report Verified Date/Time: 12/08/2017 20:13:50 Reading Location: [facility] Radiology Reading Room Performing Organization Address City/State/Zipcode Phone Number [facility] MRA head without IV contrast (12/08/2017 8:00 PM CDT) Specimen Narrative Performed At FINAL REPORT [facility] MRA Head CLINICAL HISTORY: Stroke TECHNIQUE: MRA of the head utilizing 3-D jywc-vu-rxmzho technique, with 3-D reconstructions. COMPARISON: None FINDINGS: There is no evidence of intracranial aneurysm, focal stenosis, or major branch vessel occlusion. There is a origin of the right posterior cerebral artery. IMPRESSION: No evidence for a major ruby of [place] proximal branch vessel occlusion. MRA Neck CLINICAL HISTORY: Stroke TECHNIQUE: MRA of the neck utilizing 2-D and 3-D eqsb-ck-grxyvf technique, with 3-D reconstructions. COMPARISON: None FINDINGS: The carotid arteries in the neck are patent including their bifurcations. There is antegrade flow in the vertebral arteries in the neck. IMPRESSION: No evidence of hemodynamically significant stenosis in the cervical carotid or vertebral arteries by NASCET criteria. Signed: Madeleine Macias MD Report Verified Date/Time:12/08/2017 20:13:50 Reading Location: [facility] Radiology Reading Room Procedure Note Interface, External Ris In - 12/08/2017 8:15 PM CDT FINAL REPORT MRA Head CLINICAL HISTORY: Stroke TECHNIQUE: MRA of the head utilizing 3-D pcno-az-yvrnqh technique, with 3-D reconstructions. COMPARISON: None FINDINGS: There is no evidence of intracranial aneurysm, focal stenosis, or major branch vessel occlusion. There is a origin of the right posterior cerebral artery. IMPRESSION: No evidence for a major ruby of [place] proximal branch vessel occlusion. MRA Neck CLINICAL HISTORY: Stroke TECHNIQUE: MRA of the neck utilizing 2-D and 3-D nbyg-gs-dfaweo technique, with 3-D reconstructions. COMPARISON: None FINDINGS: The carotid arteries in the neck are patent including their bifurcations. There is antegrade flow in the vertebral arteries in the neck. IMPRESSION: No evidence of hemodynamically significant stenosis in the cervical carotid or vertebral arteries by NASCET criteria. Signed: Madeleine Macias MD Report Verified Date/Time: 12/08/2017 20:13:50 Reading Location: [facility] Radiology Reading Room Performing Organization Address City/State/Zipcode Phone Number [facility] ECHOCARDIOGRAM REPORT - SCAN (12/08/2017 6:50 PM CDT) Narrative Performed At 2D Echo W/Doppler(CW/PW/Color) with saline (12/08/2017 11:58 AM CDT) Ejection Fraction [facility] [facility] Specimen Narrative Performed At Transthoracic Echocardiography Report (TTE) [facility] MolecularMDESSON [facility] Demographics Patient NameAGUILAR, Date of Study12/08/2017 GIOVANNY Gender Female Visit [id number] Race Unknown [id number] Number Date of 1975 Referring PhysicianRahuchris Mendez Age 42 year(s) SonographerOscRORY [place] Disability Program Navigator Jeremi Martel MD Physician Procedure Type of [...] Study 12/08/2017 GIOVANNY Gender Female Visit Number [id number] Race Unknown Room Number 7401 Number Date of 1975 Referring Physician Andrea Mendez Age 42 year(s) Packaging Assembler Reji Wilson [facility] Disability Program Navigator Jeremi Rodriguez Interpreting Frederic Martel MD Physician [...] LVOT Area: 3.46 cm^2 Performing Organization Address City/State/[facility] Phone Number [facility] MKESSON [facility] Carotid doppler bilateral (12/08/2017 11:10 AM CDT) Ejection Fraction [facility] Specimen Impressions Performed At Right Impression [facility] 1. The internal, common and external [...] Performed At LAB - Carotid Duplex Study [facility]CK[facility] Demographics Patient Name Ty HARRISON of Study12/08/2017 [id number] Age42 Visit Number [id number] Gender Female Accession Number [id number] Date of Birth1975 [facility] Room [id number] Physician Michael Jeff RVT PhysicianMD, SCOTT Procedure [...] of Study 12/08/2017 Age 42 Visit Number [id number] Gender Female Accession Number [id number] Date of 1975 Referring Andrea Roberson Room Number 7401 Physician Packaging Assembler Fernando Goldberg Interpreting Rajeev Jeff, T Physician , RPVI Procedure Type [...] 0.71. Performing Organization Address City/State/Zipcode Phone Number [facility] [place] [facility] MKCKESS[facility] Troponin I (12/08/2017 9:01 AM CDT)Only the most recent of2 resultswithin the time period is included. Troponin I <0.01 0.00 - 0.03 ng/mL [facility] Specimen Blood Narrative Performed At [facility] Troponin I (TnI) levels must [...] disease, and persistent tachyarrhythmia. Performing Organization Address City/[facility] Phone Number [address] [address] [place] Urine culture (12/08/2017 3:39 AM CDT) Result No growth [facility] Specimen Urine - Urine, Straight Catheter Performing Organization Address [facility] Hospitalc[facility] Phone Number [address] [address] [phone] [place] Rapid drug screen, urine (12/08/2017 3:38 AM CDT) Barbiturate Screen Negative Negative [facility] Benzodiazepine Screen Negative Negative [facility] Cocaine (Metab.) Screen Negative Negative [facility] Methadone Screen Negative Negative [facility] Opiate Screen Negative Negative [facility] Cannabinoid Screen Negative Negative [facility] Amph/Methamph Screen Negative Negative [facility] Phencyclidine Screen Negative Negative [facility] Oxycodone Screen Negative Negative [facility] Specimen Urine - Urine, Sterile Collection Narrative Performed At [facility] DRUGCUTOFF CONC. Cocaine 300 ng/mL Zrshgbnkilf14 ng/mL Zydopzgqhhpqgx125 ng/mL Barbiturate 200 ng/mL Vnfuprdioudik63 ng/mL Rvggyd588 ng/mL Methadone 300 ng/mL Amphetamine/ 1000 ng/mL Methamphetamine Oxycodone 300 ng/mL This assay provides an unconfirmed qualitative test result for the clinical management of patients in emergency situations. Chain of custody not maintained. Some qaoj-vtc-ffxcznk medications, as well as adulterants, may cause inaccurate results. Clinical correlation should be applied. A more comprehensive drug screen or confirmation of a detected drug may be performed upon request. Performing Organization Address City/[facility] Hospital[facility] Phone Number [address] [address] [place] Urinalysis w/ Microscopic (12/08/2017 3:38 AM CDT) Color, UA Yellow [facility] Clarity, UA Clear [facility] Specific [place], UA 1.039 (H) 1.001 - 1.035 [facility] pH, UA 5.5 5.0 - 8.0 [facility] Protein, UA 10 mg/dL (A) Negative [facility] Glucose, UA Negative Negative [facility] Ketones, UA Negative Negative [facility] Bilirubin, UA Negative Negative [facility] Blood, UA Small (A) Negative [facility] Nitrite, UA Negative Negative [facility] Leukocytes, UA Negative Negative [facility] Urobilinogen, UA 0.2 0.2 - 1.0 mg/dL [facility] RBC, UA 1 /HPF [facility] WBC, UA <1 /HPF [facility] Mucus Occasional [facility] Squam Epithel, UA <1 /HPF [facility] Crystals, Urine Rare [facility] Specimen Source Urine, Sterile Collection [facility] Specimen Urine - Urine, Sterile Collection Performing Organization Address [facility]/Zipcode Phone Number [address] [address] CENTER TSH/Free T4 If Indicated (12/08/2017 3:37 AM CDT) TSH 0.66 0.35 - 4.94 uIU/mL [facility] Specimen Blood Performing Organization Address City/[facility] Hospitalcode Phone Number [address] [address] [phone] [place] Hemoglobin A1c - Fasting (12/08/2017 3:37 AM CDT) Hemoglobin A1C 6.6 (H) 4.3 - 6.1 % [facility] Specimen Blood Narrative Performed At Fasting [facility] Performing Organization Address City/[facility] Phone Number [address] [address] [phone] [place] Fasting lipid panel (12/08/2017 3:37 AM CDT) Triglycerides 83Comment: Specimen slightly mg/dL [facility] Cholesterol 140Comment: Specimen slightly mg/dL [facility] HDL 38 mg/dL [facility] LDL Calculated 85 mg/dL [facility] Specimen Blood Narrative Performed At [facility] Triglyceride Reference Range: Low Risk <150 Qtnliyuglb960-205 High Risk 200-499 Very High Risk>=500 Cholesterol Reference Range: Low Risk <200 Hykhgtogwm635-030 High Risk>240 HDL Cholesterol Reference Range: Low Risk >=60 High Risk <40 LDL Cholesterol Reference Range: Optimal<100 Near Kjbcwzv214-589 Wjaetmpher481-318 Dbal519-954 Very High >=190 Fasting Performing Organization Address City/[facility]/Zipcode Phone Number [address] [address] [place] Vitamin B12 and Folate (12/07/2017 11:19 PM CDT) Vitamin B12 688 213 - 816 pg/mL [facility] Folate 12.1 >=7.0 ng/mL [facility] Specimen Blood Performing Organization Address City/[facility] Phone Number [address] [address] [phone] [place] Prothrombin time/INR (12/07/2017 11:19 PM CDT) Protime 15.8 (H) 11.7 - 14.7 seconds [facility] INR 1.3 <=5.9 [facility] Specimen Blood Narrative Performed At [facility] RECOMMENDED COUMADIN/WARFARIN INR THERAPY RANGES STANDARD DOSE: 2.0 - 3.0 Includes: PROPHYLAXIS for venous thrombosis, systemic embolization; TREATMENT for venous thrombosis and/or pulmonary embolus. HIGH RISK: Target INR is 2.5-3.5 for patients with mechanical heart valves. Performing Organization Address [facility] Phone Number [address] [address] [phone] [place] Hepatic function panel (12/07/2017 11:19 PM CDT) Protein, Total 6.8 6.0 - 8.3 gm/dL [facility] Albumin 3.7 3.5 - 5.0 g/dL [facility] Total Bilirubin 0.4 0.2 - 1.2 mg/dL [facility] Bilirubin, Direct 0.2 0.1 - 0.5 mg/dL [facility] Alkaline Phosphatase 75 40 - 150 U/L [facility] AST 30 5 - 34 U/L [facility] ALT 17 6 - 55 U/L [facility] Specimen Blood Performing Organization Address City/[facility]/Zipcode Phone Number [address] [address] [place] XR chest 1 view portable / bedside (12/07/2017 9:45 PM CDT) Specimen Narrative Performed At FINAL REPORT [facility] Clinical History: Stroke workup Comparison Study: None Findings:The cardiac silhouette is enlarged. The lungs are within normal limits.The pleural spaces are clear.No significant bony or soft tissue abnormalities are seen. Impression: Cardiomegaly. Signed: Wellington Goodwin MD Report Verified Date/Time:12/07/2017 21:51:29 Reading Location: [facility] [id number] Consult Reading Room Procedure Note Interface, External Ris In - 12/07/2017 9:53 PM CDT FINAL REPORT Clinical History: Stroke workup Comparison Study: None Findings: The cardiac silhouette is enlarged. The lungs are within normal limits. The pleural spaces are clear. No significant bony or soft tissue abnormalities are seen. Impression: Cardiomegaly. Signed: Wellington Goodwin MD Report Verified Date/Time: 12/07/2017 21:51:29 Reading Location: [facility] [id number] Consult Reading Room Performing Organization Address City/State/Zipcode Phone Number RIS after 09/30/2017 Insurance Payer Benefit Plan / Group Subscriber ID Type Phone Address CARE IMPROVEMENT MEDICARE CARE IMPROVEMENT PLUS xxxxxxxxx [facility] MEDICAID [place] xxxxxxxxx Medicaid Advance Directives For more information, please contact:[address] [phone] Code Status Date Activated Date Inactivated Comments Full Code 05/02/2017 9:56 PM 05/04/2017 2:47 PM This code status was determined by: Patient Full Code 04/06/2017 11:35 PM 04/15/2017 8:31 PM This code status was determined by: Patient
--- OUTSIDE RECORDS SUMMARY | 2018-10-01 23:24 | XMS REPORT | Summary of Care ---
:1975 Author Organization [facility] Address [address], [place] [address]- Encounter HQ Mukul(FIN) [id number] Date(s): 09/27/18 - 09/27/[address] [address]- [place] Discharge Disposition: Home or Self Care Attending Physician: Michael Morton MD Referring Physician: Michael Morton MD Vital Signs Most recent to oldest 1 2 3 [Reference Range]: Height 160.02 cm (09/13/18 12:20 PM) Blood Pressure [90-140/60-90 120/65 mmHg 107/59 mmHg 104/57 mmHg mmHg] (09/27/18 12:30 PM) (09/27/18 12:00 PM) (09/27/18 11:45 AM) Respiratory Rate [14-20 17 BRMIN 13 BRMIN 18 BRMIN BRMIN] (09/27/18 12:30 PM) *LOW* (09/27/18 11:45 AM) (09/27/18 12:00 PM) Peripheral Pulse Rate 64 bpm 82 bpm [60-100 bpm] (09/27/18 8:00 AM) (09/13/18 12:20 PM) Weight 164.5 kg (09/13/18 12:20 PM) Body Mass Index 64.24 m2 (09/13/18 12:20 PM) Problem List Condition Effective Dates Status Health Status Informant Circulation problem(Confirmed)1 Active Diabetes(Confirmed) Active Heartburn(Confirmed) Active 1right leg Allergies, Adverse Reactions, Alerts Substance Reaction Severity Status warfarin Active Plavix Active Medications albuterol 90 mcg/inh inhalation aerosol 2 puff, INHALATION, PRN, 0 Refill(s) Start Date: 09/13/18 Status: OrderedamLODIPine PO, PRN, 0 Refill(s) Start Date: 09/13/18 Status: OrderedANES flumazenil 0.2 mg, 2 mL, Route: IVP, Drug form: INJ, PRN, Dosing Weight 164.5, kg, PRN Benzodiazepine Reversal,Initial dose, Start date: 09/27/18 10:24:00 CDT, Duration: 30 day, Stop date: 10/27/18 10:23:00 CDT Notes: (Same as: Romazicon) Start Date: 09/27/18 Stop Date: 09/28/18 Status: DiscontinuedANES hydrALAZINE 10 mg, 0.5 mL, Route: IVP, Drug form: INJ, Q20Min, Dosing Weight 164.5, kg, PRN Elevated BP, Start date: 09/27/18 10:24:00 CDT, Duration: 2 doses or times, Stop date: Limited # of times Notes: (Same as: Apresoline)Push over 5 minutes Start Date: 09/27/18 Stop Date: 09/28/18 Status: DiscontinuedANES labetalol 10 mg, 2 mL, Route: IVP, Drug form: INJ, Q5Min, Dosing Weight 164.5, kg, PRN Elevated BP, Start date: 09/27/18 10:24:00 CDT, Duration: 5 doses or times, Stop date: Limited # of times Start Date: 09/27/18 Stop Date: 09/28/18 Status: DiscontinuedANES naloxone 0.4 mg, 1 mL, Route: IVP, Drug form: INJ, Q2MIN, Dosing Weight 164.5, kg, PRN Narcotic Reversal, Start date: 09/27/18 10:24:00 CDT, Duration: 8 doses or times , Stop date: Limited # of times Notes: Same as Narcan Start Date: 09/27/18 Stop Date: 09/28/18 Status: DiscontinuedANES ondansetron 4 mg, 2 mL, Route: IVP, Drug form: INJ, ONCE, Dosing Weight 164.5, kg, PRN Nausea & Vomiting, Start date: 09/27/18 10:24:00 CDT Notes: (Same as: Kranthi) MEDICATION WASTE Product Size: 4 mgProduct Wasted: ___ mg Start Date: 09/27/18 Stop Date: 09/27/18 Status: CompletedANES oxyCODONE 5 mg, 1 tab, Route: PO, Drug form: TAB, Q4H, Dosing Weight 164.5, kg, PRN Pain Score 4-6, Start date: 09/27/18 10:24:00 CDT, Duration: 30 day, Stop date: 10/27 10:23:00 CDT Notes: (Same as: Roxicodone) Start Date: 09/27/18 Stop Date: 09/28/18 Status: DiscontinuedANES promethazine 6.25 mg, 0.25 mL, Route: IVPB, Drug form: INJ, ONCE, Dosing Weight 164.5, kg, PRN Nausea & Vomiting, Start date: 09/27/18 10:24:00 CDT Notes: Do not give IV push. (Same as: Phenergan) Start Date: 09/27/18 Stop Date: 09/28/18 Status: DiscontinuedDexilant PO, Daily, 0 Refill(s) Start Date: 09/13/18 Status: Orderedlisinopril 10 mg oral tablet 10 mg=1 tab, PO, Daily, 0 Refill(s) Start Date: 09/13/18 Status: OrderedProtonix 20 mg oral enteric coated tablet 50 mg, PO, BID, 0 Refill(s) Start Date: 09/13/18 Status: OrderedSymbicort 160/4.5 inhalation aerosol with adapter 2 puff, INHALATION, Daily, 0 Refill(s) Start Date: 09/13/18 Status: OrderedTopamax 50 mg oral tablet 50 mg=1 tab, PO, BID, # 60 tab, 0 Refill(s) Start Date: 09/13/18 Status: OrderedVitamin D3 =1 cap, PO, Every Other Day, 0 Refill(s) Start Date: 09/13/18 Status: Ordered Results ELECTROLYTES Most recent to oldest [Reference Range]: 1 Sodium Lvl [135-145 mEq/L] 143 mEq/L 1 (09/13/18 1:47 PM) Potassium Lvl [3.5-5.1 mEq/L] 3.8 mEq/L 2 (09/13/18 1:47 PM) Chloride Lvl [95-109 mEq/L] 108 mEq/L 3 (09/13/18 1:47 PM) CO2 [24-32 mEq/L] 28 mEq/L 4 (09/13/18 1:47 PM) AGAP [10.0-20.0 mEq/L] 10.8 mEq/L 5 (09/13/18 1:47 PM) 1Result Comment: Collection date/time has been modified to: 13:47:00. Previous collection date/time: 15:13:00.2Result Comment: Collection date/time has been modified to: 13:47:00. Previous collection date/ time: 15:13:00.3Result Comment: Collection date/time has been modified to: 13:47:00. Previous collection date/time: 15:13 :00.4Result Comment: Collection date/time has been modified to: 13:47: 00. Previous collection date/time: 15:13:00.5Result Comment: Collection date/time has been modified to: 13:47:00. Previous collection date/time: 15:13:00.CHEM PANEL Most recent to oldest [Reference Range]: 1 Creatinine Lvl [0.50-1.40 mg/dL] 0.74 mg/dL 1 (09/13/18 1:47 PM) eGFR 100 mL/min/1.73m2 2 *NA* (09/13/18 1:47 PM) BUN [7-22 mg/dL] 17 mg/dL 3 (09/13/18 1:47 PM) B/C Ratio [6-25] 23 4 (09/13/18 1:47 PM) Glucose Lvl [70-99 mg/dL] 84 mg/dL 5 (09/13/18 1:47 PM) Total Protein [6.4-8.4 g/dL] 7.5 g/dL 6 (09/13/18 1:47 PM) Albumin Lvl [3.5-5.0 g/dL] 3.7 g/dL 7 (09/13/18 1:47 PM) Globulin [2.7-4.2 g/dL] 3.8 g/dL 8 (09/13/18 1:47 PM) A/G Ratio [0.7-1.6] 1.0 9 (09/13/18 1:47 PM) Calcium Lvl [8.5-10.5 mg/dL] 8.8 mg/dL 10 (09/13/18 1:47 PM) ALT [0-65 unit/L] 21 unit/L 11 (09/13/18 1:47 PM) AST [0-37 unit/L] 23 unit/L 12 (09/13/18 1:47 PM) Alk Phos [39-136 unit/L] 88 unit/L 13 (09/13/18 1:47 PM) Bili Total [0.2-1.3 mg/dL] 0.3 mg/dL 14 (09/13/18 1:47 PM) 1Result Comment: Collection date/time has been modified to: 13:47:00. Previous collection date/time: 15:13:00.2Result Comment: The eGFR is calculated using the CKD-EPI formula. In most young, healthy individualsthe eGFR will be >90 mL/min/1.73m2. The eGFR declines with age. An eGFR of 60-89 may be normal insome populations, particularly the elderly, for whom the CKD- EPI formula has not been extensively validated. Use of the eGFR is not recommended in the following populations: Individuals with unstable creatinine concentrations, including patients and those with serious co-morbid conditions. Patients with extremes in muscle mass or diet. The data above are obtained from the National Kid[employer] Education Program ( NKDEP) which additionally recommends that when the eGFR is used in patients with extremes of body mass index for purposesof drug dosing, the eGFR should be multiplied by the estimated BMI. Collection date/time has been modified to: 08/29 13:47:00. Previous collection date/time: 15:13:00.3Result Comment: Collection date/time has been modified to: 13:47:00. Previous collection date/time: 15:13:00.4Result Comment: Collection date/time has been modified to: 13:47:00. Previous collection date/ time: 15:13:00.5Result Comment: Collection date/time has been modified to: 13:47:00. Previous collection date/time: 15:13 :00.6Result Comment: Collection date/time has been modified to: 13:47: 00. Previous collection date/time: 15:13:00.7Result Comment: Collection date/time has been modified to: 13:47:00. Previous collection date/time: 15:13:00.8Result Comment: Collection date/time has been modified to: 13:47:00. Previous collection date/time: 15:13:00.9Result Comment: Collection date/time has been modified to: 13:47:00. Previous collection date/time: 15:13:00.10Result Comment : Collection date/time has been modified to: 13:47:00. Previous collection date/time: 15:13:00.11Result Comment: Collection date/time has been modified to: 13:47:00. Previous collection date/time: 15:13:00.12Result Comment: Collection date/time has been modified to: 13:47:00. Previous collection date/time: 15:13:00.13Result Comment: Collection date/time has been modified to: 13:47:00. Previous collection date/time: 15:13:00.14Result Comment: Collection date/time has been modified to: 13:47:00. Previous collection date/ time: 15:13:00.SPECIAL CHEMISTRY Most recent to oldest [Reference Range]: 1 Hgb A1C [<=5.6 %] 6.2 % 1 *HI* (09/13/18 1:47 PM) 1Result Comment: Collection date/time has been modified to: 13:47:00. Previous collection date/time: 15:13:00.HEMATOLOGY Most recent to oldest [Reference Range]: 1 WBC [3.7-10.4 K/CMM] 7.4 K/CMM 1 (09/13/18 1:47 PM) RBC [4.20-5.40 M/CMM] 4.59 M/CMM 2 (09/13/18 1:47 PM) Hgb [12.0-16.0 g/dL] 13.0 g/dL 3 (09/13/18 1:47 PM) Hct [36.0-48.0 %] 39.9 % 4 (09/13/18 1:47 PM) MCV [80.0-98.0 fL] 87.0 fL 5 (09/13/18 1:47 PM) MCH [27.0-31.0 pg] 28.5 pg 6 (09/13/18 1:47 PM) MCHC [32.0-36.0 g/dL] 32.7 g/dL 7 (09/13/18 1:47 PM) RDW [11.5-14.5 %] 14.8 % 8 *HI* (09/13/18 1:47 PM) MPV [7.4-10.4 fL] 10.2 fL 9 (09/13/18 1:47 PM) Platelet [133-450 K/CMM] 197 K/CMM 10 (09/13/18 1:47 PM) Segs [45.0-75.0 %] 70.8 % 11 (09/13/18 1:47 PM) Lymphocytes [20.0-40.0 %] 23.0 % 12 (09/13/18 1:47 PM) Monocytes [2.0-12.0 %] 4.4 % 13 (09/13/18 1:47 PM) Eosinophils [0.0-4.0 %] 1.6 % 14 (09/13/18 1:47 PM) Basophils [0.0-1.0 %] 0.2 % 15 (09/13/18 1:47 PM) Neutrophils # [1.5-8.1 K/CMM] 5.3 K/CMM 16 (09/13/18 1:47 PM) Lymphocytes # [1.0-5.5 K/CMM] 1.7 K/CMM 17 (09/13/18 1:47 PM) Monocytes # [0.0-0.8 K/CMM] 0.3 K/CMM 18 (09/13/18 1:47 PM) Eosinophils # [0.0-0.5 K/CMM] 0.1 K/CMM 19 (09/13/18 1:47 PM) 1Result Comment: Collection date/time has been modified to: 13:47:00. Previous collection date/time: 15:13:00.2Result Comment: Collection date/time has been modified to: 13:47:00. Previous collection date/ time: 15:13:00.3Result Comment: Collection date/time has been modified to: 13:47:00. Previous collection date/time: 15:13 :00.4Result Comment: Collection date/time has been modified to: 13:47: 00. Previous collection date/time: 15:13:00.5Result Comment: Collection date/time has been modified to: 13:47:00. Previous collection date/time: 15:13:00.6Result Comment: Collection date/time has been modified to: 13:47:00. Previous collection date/time: 15:13:00.7Result Comment: Collection date/time has been modified to: 13:47:00. Previous collection date/time: 15:13:00.8Result Comment : Collection date/time has been modified to: 13:47:00. Previous collection date/time: 15:13:00.9Result Comment: Collection date/time has been modified to: 13:47:00. Previous collection date/time: 15:13:00.10Result Comment: Collection date/time has been modified to: 13:47:00. Previous collection date/time: 15:13:00.11Result Comment: Collection date/time has been modified to: 13:47:00. Previous collection date/time: 15:13:00.12Result Comment: Collection date/time has been modified to: 13:47:00. Previous collection date/ time: 15:13:00.13Result Comment: Collection date/time has been modified to: 13:47:00. Previous collection date/time: 15:13 :00.14Result Comment: Collection date/time has been modified to: 13:47 :00. Previous collection date/time: 15:13:00.15Result Comment: Collection date/time has been modified to: 13:47:00. Previous collection date/time: 15:13:00.16Result Comment: Collection date/time has been modified to: 13:47:00. Previous collection date/time: 15:13:00.17Result Comment: Collection date/time has been modified to: 13:47:00. Previous collection date/time: 15:13:00.18Result Comment: Collection date/time has been modified to: 13:47:00. Previous collection date/time: 15:13:00.19Result Comment: Collection date/time has been modified to: 13:47:00. Previous collection date/ time: 15:13:00. Immunizations Given and Recorded Vaccine Date Status Refusal Reason pneumococcal 23-valent vaccine 06/15/18 Given Procedures Procedure Date Related Diagnosis Body Site Status Arthroscopy of knee with medial and 01/13/15 Completed lateral meniscectomy Operation1 06/13/13 Completed Cholecystectomy 06/13/09 Completed Hernia repair 06/13/09 Completed Hysterectomy 06/13/08 Completed Tubal ligation 06/13/96 Completed section2 06/13/92 Completed Operation3 06/13/80 Completed 1right knee [id number] removed on right leg Social History Social History Type Response Substance Abuse Use: None. Exercise Exercise duration: 20. Exercise frequency: 1-2 times/week. Self assessment: Poor condition. Exercise type: Walking. Alcohol Never Smoking Status Never smoker; Exposure to Tobacco Smoke None; Cigarette Smoking Last 365 Days No; Reg Smoking Cessation Counseling No entered on: 09/27/18 Assessment and Plan No data available for this section
--- OUTSIDE RECORDS SUMMARY | 2018-10-01 23:25 | XMS REPORT ---
:1975 Author Organization [facility] Address [address] [place] [address] Care Team Providers Name Role Phone MAYRA CHEUNG YIMI Unavailable Unavailable MICKEY RESTREPO Unavailable Unavailable Problems This patient has no known problems. Allergies, Adverse Reactions, Alerts This patient has no known allergies or adverse reactions. Medications This patient has no known medications. Encounters Start End Encounter Admission Attending Care Care Encounter Date/Time Date/Time Type Type Clinicians Facility Department ID 2018-09-27 2018-09-27 Outpatient [facility] [id number] 07:11:00 07:11:00 Results Test Description Test Time Test Comments Text Results Atomic Results Result Comments RAD, CHEST, 2 2018-08-21 15:49:00 Reason for FINAL REPORT PATIENT VIEWS exam:->coughShould this be ID: [id number] Chest, performed at the PA and lateral. bedside?->No History: Cough. Comparison: 12/07/2017. Discussion: Mild cardiomegaly. The lungs are clear without evidence of consolidation or effusion. There are no acute osseous abnormalities. The soft tissues are unremarkable. IMPRESSION: No acute cardiopulmonary abnormality. Signed: Joseph Vang MDReport Verified Date/Time: 08/21/2018 15:49:59 Reading Location: [facility] Reading Room E CULTURE 2017-12-10 13:30:00 Test Item Value Reference Range Comments CULTURE (BEAKER) (test nptd=1504) No growth POCT-GLUCOSE [id number] 08:21:00 Test Item Value Reference Range Comments POC-GLUCOSE METER (BEAKER) 99 mg/dL 70-110 TESTED AT [address] (test qmps=0327) [facility] [address] POCT-GLUCOSE [id number] 06:14:00 Test Item Value Reference Range Comments POC-GLUCOSE METER (BEAKER) 105 mg/dL 70-[address] [facility] [address] (test vnts=6323) [facility] [address] BASIC METABOLIC [id number] 05:56:00 Test Item Value Reference Range Comments SODIUM (BEAKER) (test 140 meq/L 136-145 whoj=738) POTASSIUM (BEAKER) (test 3.9 meq/L 3.5-5.1 dgji=598) CHLORIDE (BEAKER) (test 105 meq/L 98-107 pqnm=058) CO2 (BEAKER) (test 28 meq/L 22-29 otyc=311) BLOOD UREA NITROGEN 11 mg/dL 7-21 (BEAKER) (test kigw=224) CREATININE (BEAKER) (test 0.62 mg/dL 0.57-1.25 rzid=124) GLUCOSE RANDOM (BEAKER) 107 mg/dL 70-105 (test ntse=774) CALCIUM (BEAKER) (test 8.8 mg/dL 8.4-10.2 acna=949) EGFR (BEAKER) (test 106 mL/min/1.73 sq m ESTIMATED GFR IS NOT glxk=9707) ACCURATE CREATININE CLEARANCE IN PREDICTING GLOMERULAR FILTRATION RATE. ESTIMATED GFR IS NOT APPLICABLE FOR DIALYSIS PATIENTS. CBC W/PLT COUNT & AUTO [id number] 05:15:00 Test Item Value Reference Range Comments WHITE BLOOD CELL COUNT (BEAKER) (test nvib=609) 6.7 K/ L 3.5-10.5 RED BLOOD CELL COUNT (BEAKER) (test lfbk=648) 4.08 M/ L 3.93-5.22 HEMOGLOBIN (BEAKER) (test uqin=511) 11.4 GM/DL 11.2-15.7 HEMATOCRIT (BEAKER) (test qrgc=674) 37.6 % 34.1-44.9 MEAN CORPUSCULAR VOLUME (BEAKER) (test xgfa=068) 92.2 fL 79.4-94.8 MEAN CORPUSCULAR HEMOGLOBIN (BEAKER) (test 27.9 pg 25.6-32.2 cnqs=497) MEAN CORPUSCULAR HEMOGLOBIN CONC (BEAKER) (test 30.3 GM/DL 32.2-35.5 chgp=202) RED CELL DISTRIBUTION WIDTH (BEAKER) (test 14.6 % 11.7-14.4 javn=801) PLATELET COUNT (BEAKER) (test fhpd=387) 192 K/CU MM 150-450 MEAN PLATELET VOLUME (BEAKER) (test nrbp=379) 11.9 fL 9.4-12.3 NUCLEATED RED BLOOD CELLS (BEAKER) (test 0 /100 WBC 0-0 ulaz=071) NEUTROPHILS RELATIVE PERCENT (BEAKER) (test 69 % payt=050) LYMPHOCYTES RELATIVE PERCENT (BEAKER) (test 25 % mbxp=551) MONOCYTES RELATIVE PERCENT (BEAKER) (test 5 % wrmo=984) EOSINOPHILS RELATIVE PERCENT (BEAKER) (test 2 % uctz=370) BASOPHILS RELATIVE PERCENT (BEAKER) (test 0 % dhom=016) NEUTROPHILS ABSOLUTE COUNT (BEAKER) (test 4.59 K/ L 1.56-6.13 emor=879) LYMPHOCYTES ABSOLUTE COUNT (BEAKER) (test 1.65 K/ L 1.18-3.74 aiic=743) MONOCYTES ABSOLUTE COUNT (BEAKER) (test 0.30 K/ L 0.24-0.36 cmec=777) EOSINOPHILS ABSOLUTE COUNT (BEAKER) (test 0.11 K/ L 0.04-0.36 qlwg=899) BASOPHILS ABSOLUTE COUNT (BEAKER) (test 0.01 K/ L 0.01-0.08 jgxz=955) IMMATURE GRANULOCYTES-RELATIVE PERCENT (BEAKER) 0 % 0-1 (test ulpy=4649) POCT-GLUCOSE [id number] 00:23:00 Test Item Value Reference Range Comments POC-GLUCOSE METER (BEAKER) 111 mg/dL 70-110 TESTED AT [address] (test dmjs=0537) [facility] [address] MR, MRA, BRAIN, WITHOUT [id number] 20:13:00Reason for exam:-> Ischemic Stroke EvaluationFINAL REPORT MRA Head CLINICAL HISTORY: Stroke TECHNIQUE: MRA of the head utilizing 3-D rdzm-dt-jhbgag technique, with 3-D reconstructions. COMPARISON: None FINDINGS: There is noevidence of intracranial aneurysm, focal stenosis, or major branch vessel occlusion. There is a origin of the right posterior cerebral artery. IMPRESSION: No evidence for a major [place] Willis[place]ximal branch vessel occlusion. MRA Neck CLINICAL HISTORY: Stroke TECHNIQUE: MRA of the neck utilizing 2-D and 3-D qsjg-fx-kasexd technique, with 3-D reconstructions. COMPARISON: None FINDINGS: Thecarotid arteries in the neck are patent including their bifurcations. There is antegrade flow in the vertebral arteries in the neck. IMPRESSION: No evidence of hemodynamically significant stenosis in the cervical carotid or vertebral arteries by NASCET criteria. Signed: Madeleine Macias Verified Date/Time: 12/08/2017 20:13:50 Reading Location: [facility] Radiology Reading Room MR, MRA, NECK, WITHOUT IV [id number] 20:13: 00Reason for exam:->Ischemic Stroke EvaluationFINAL REPORT MRA Head CLINICAL HISTORY: Stroke TECHNIQUE: MRA of the head utilizing 3-D pbpy-lx-fcewas technique, with 3-D reconstructions. COMPARISON: None FINDINGS: There is noevidence of intracranial aneurysm, focal stenosis, or major branch vessel occlusion. There is a origin of the right posterior cerebral artery. IMPRESSION: No evidence for a major [place] Willis[place]ximal branch vessel occlusion. MRA Neck CLINICAL HISTORY: Stroke TECHNIQUE: MRA of the neck utilizing 2-D and 3-D dboj-ku-idbbbv technique, with 3-D reconstructions. COMPARISON: None FINDINGS: Thecarotid arteries in the neck are patent including their bifurcations. There is antegrade flow in the vertebral arteries in the neck. IMPRESSION: No evidence of hemodynamically significant stenosis in the cervical carotid or vertebral arteries by NASCET criteria. Signed: Madeleine Macias Verified Date/Time: 12/08/2017 20:13: 50 Reading Location: [facility] Radiology Reading Room MR, BRAIN, WITHOUT [id number] 20:02:00Reason for exam:->StrokeWhat is the patient's sedation [...] infarct , hemorrhage, or hydrocephalus. Signed: Madeleine Maciaseport Verified Date/ Time: 12/08/2017 20:02:46 Reading Location: [facility] Radiology Reading Room 08:02 PMPOCT-GLUCOSE [id number] 15:23:00 Test Item Value Reference Range Comments POC-GLUCOSE METER (BEAKER) 106 mg/dL 70-110 TESTED AT [address] (test ijqs=0919) [place] [address] HEMOGLOBIN [id number] 11:57:00 Test Item Value Reference Range Comments HEMOGLOBIN A1C (BEAKER) (test bjup=684) 6.6 % 4.3-6.1 FastingTROPONIN [id number] 09:50:00 Test Item Value Reference Range Comments TROPONIN I (BEAKER) (test hvxg=006) < ng/mL 0.00-0.03 Troponin I (TnI) levels [...] acidosis, acute neurological disease, and persistent tachyarrhythmia.POCT-GLUCOSE [id number] 06:23:00 Test Item Value Reference Range Comments POC-GLUCOSE METER (BEAKER) 110 mg/dL 70-110 TESTED AT [address] (test henp=4373) [place] [address] POCT-GLUCOSE [id number] 06:15:00 Test Item Value Reference Range Comments POC-GLUCOSE METER (BEAKER) 149 mg/dL 70-110 TESTED AT [address] (test rskm=3361) [place] [address] VITAMIN B12 AND [id number] 05:50:00 Test Item Value Reference Range Comments VITAMIN B12 (BEAKER) (test slnp=937) 688 pg/mL 213-816 FOLATE (BEAKER) (test zuwv=954) 12.1 ng/mL >=7.0 TSH/FREE T4 IF [id number] 05:29:00 Test Item Value Reference Range Comments THYROID STIMULATING HORMONE (BEAKER) (test 0.66 uIU/mL 0.35-4.94 paxb=181) BASIC METABOLIC [id number] 05:11:00 Test Item Value Reference Range Comments SODIUM (BEAKER) (test 140 meq/L 136-145 iuqm=768) POTASSIUM (BEAKER) (test 4.3 meq/L 3.5-5.1 Specimen slightly zlcw=718) hemolyzed CHLORIDE (BEAKER) (test 105 meq/L 98-107 efjn=319) CO2 (BEAKER) (test 27 meq/L 22-29 dnzh=844) BLOOD UREA NITROGEN 8 mg/dL 7-21 (BEAKER) (test lldq=269) CREATININE (BEAKER) (test 0.67 mg/dL 0.57-1.25 Specimen slightly cjvh=027) hemolyzed GLUCOSE RANDOM (BEAKER) 136 mg/dL 70-105 (test gwcx=293) CALCIUM (BEAKER) (test 8.7 mg/dL 8.4-10.2 mauh=733) EGFR (BEAKER) (test 97 mL/min/1.73 sq m ESTIMATED GFR IS NOT tlpn=8759) ACCURATE CREATININE CLEARANCE IN PREDICTING GLOMERULAR FILTRATION RATE. ESTIMATED GFR IS NOT APPLICABLE FOR DIALYSIS PATIENTS. FastingLIPID [id number] 05:11:00 Test Item Value Reference Range Comments TRIGLYCERIDES (BEAKER) (test 83 mg/dL Specimen slightly hemolyzed vxyy=688) CHOLESTEROL (BEAKER) (test 140 mg/dL Specimen slightly hemolyzed dfim=391) HDL CHOLESTEROL (BEAKER) (test 38 mg/dL hels=236) LDL CHOLESTEROL CALCULATED 85 mg/dL (BEAKER) (test eknq=040) Triglyceride Reference Range: Low Risk <150 Borderline 150- 199 High Risk 200-499 Very High Risk >=500Cholesterol Reference Range: Low Risk <200 Borderline 200-239 High Risk > 240HDL Cholesterol Reference Range: Low Risk >=60 High Risk <40LDL Cholesterol Reference Range: Optimal <100 Near Optimal 100-129 Borderline 130-159 High 160-189 Very High >=190 FastingRAPID DRUG SCREEN, [id number] 04:34:00 Test Item Value Reference Range Comments BARBITURATE URINE (BEAKER) (test lhbv=655) Negative Negative BENZODIAZEPINE SCREEN URINE (BEAKER) (test Negative Negative jkts=373) COCAINE (METAB.) SCREEN (BEAKER) (test cfpr=8305) Negative Negative METHADONE SCREEN (BEAKER) (test ldpl=2977) Negative Negative OPIATE SCREEN URINE (BEAKER) (test tfqd=171) Negative Negative CANNABINOID SCREEN URINE (BEAKER) (test ubsy=656) Negative Negative AMPH/METHAMPH SCREEN (BEAKER) (test szmy=0575) Negative Negative PHENCYCLIDINE SCREEN URINE (BEAKER) (test vlqh=347) Negative Negative OXYCODONE SCREEN URINE (BEAKER) (test dpkq=9187) Negative Negative DRUG CUTOFF CONC.Cocaine 300 ng/mL Cannabinoid 50 ng/mL Benzodiazepine 200 ng/mLBarbiturate 200 ng/ mLPhencyclidine 25 ng/mLOpiate 300 ng/mLMethadone 300 ng/mLAmphetamine/ 1000 ng/mL MethamphetamineOxycodone 300 ng/mLThis assay provides an unconfirmed qualitative test result for the clinical management of patients in emergency situations. Chain of custody not maintained. Some vdqn-ipa-zbxwaju medications, as well as adulterants, may cause inaccurate results. Clinical correlation should be applied. A more comprehensive drug screen or confirmation of a detected drug may be performed upon request.URINALYSIS W/ [id number] 04:09:00 Test Item Value Reference Range Comments COLOR (BEAKER) (test qvya=565) Yellow CLARITY (BEAKER) (test mxdn=394) Clear SPECIFIC GRAVITY UA (BEAKER) (test 1.039 1.001-1.035 yomf=177) PH UA (BEAKER) (test itjm=493) 5.5 5.0-8.0 PROTEIN UA (BEAKER) (test 10 mg/dL Negative tkpl=174) GLUCOSE UA (BEAKER) (test Negative Negative xfyf=447) KETONES UA (BEAKER) (test Negative Negative jsws=579) BILIRUBIN UA (BEAKER) (test Negative Negative orsm=301) BLOOD UA (BEAKER) (test fbmm=450) Small Negative NITRITE UA (BEAKER) (test Negative Negative bitb=411) LEUKOCYTE ESTERASE UA (BEAKER) Negative Negative (test zoxp=367) UROBILINOGEN UA (BEAKER) (test 0.2 mg/dL 0.2-1.0 hrgd=122) RBC UA (BEAKER) (test sbot=225) 1 /HPF WBC UA (BEAKER) (test kcze=208) < /HPF MUCUS (BEAKER) (test mohe=3238) Occasional SQUAMOUS EPITHELIAL (BEAKER) (test < /HPF agoi=530) CRYSTALS, URINE (BEAKER) (test Rare toxb=8175) SOURCE(BEAKER) (test outc=9090) Urine, Sterile Collection CBC W/PLT COUNT & AUTO [id number] 03:54:00 Test Item Value Reference Range Comments WHITE BLOOD CELL COUNT (BEAKER) (test cznk=395) 7.2 K/ L 3.5-10.5 RED BLOOD CELL COUNT (BEAKER) (test dwsr=921) 4.10 M/ L 3.93-5.22 HEMOGLOBIN (BEAKER) (test bisn=357) 11.6 GM/DL 11.2-15.7 HEMATOCRIT (BEAKER) (test qpip=998) 37.5 % 34.1-44.9 MEAN CORPUSCULAR VOLUME (BEAKER) (test bybq=575) 91.5 fL 79.4-94.8 MEAN CORPUSCULAR HEMOGLOBIN (BEAKER) (test 28.3 pg 25.6-32.2 dzlj=919) MEAN CORPUSCULAR HEMOGLOBIN CONC (BEAKER) (test 30.9 GM/DL 32.2-35.5 lhgm=557) RED CELL DISTRIBUTION WIDTH (BEAKER) (test 14.6 % 11.7-14.4 fvhe=546) PLATELET COUNT (BEAKER) (test pixl=861) 194 K/CU MM 150-450 MEAN PLATELET VOLUME (BEAKER) (test wqro=984) 11.7 fL 9.4-12.3 NUCLEATED RED BLOOD CELLS (BEAKER) (test 0 /100 WBC 0-0 smlk=285) NEUTROPHILS RELATIVE PERCENT (BEAKER) (test 73 % equj=126) LYMPHOCYTES RELATIVE PERCENT (BEAKER) (test 21 % ncgu=760) MONOCYTES RELATIVE PERCENT (BEAKER) (test 4 % fpqe=849) EOSINOPHILS RELATIVE PERCENT (BEAKER) (test 2 % ztla=381) BASOPHILS RELATIVE PERCENT (BEAKER) (test 0 % xmao=176) NEUTROPHILS ABSOLUTE COUNT (BEAKER) (test 5.22 K/ L 1.56-6.13 npgb=071) LYMPHOCYTES ABSOLUTE COUNT (BEAKER) (test 1.47 K/ L 1.18-3.74 tlkd=606) MONOCYTES ABSOLUTE COUNT (BEAKER) (test 0.31 K/ L 0.24-0.36 uvhk=607) EOSINOPHILS ABSOLUTE COUNT (BEAKER) (test 0.13 K/ L 0.04-0.36 zgoi=359) BASOPHILS ABSOLUTE COUNT (BEAKER) (test 0.01 K/ L 0.01-0.08 eegg=762) IMMATURE GRANULOCYTES-RELATIVE PERCENT (BEAKER) 0 % 0-1 (test kukb=4881) TROPONIN [id number] 23:56:00 Test Item Value Reference Range Comments TROPONIN I (BEAKER) (test nzvk=270) < ng/mL 0.00-0.03 Troponin I (TnI) levels [...] acute neurological disease, and persistent tachyarrhythmia.HEPATIC FUNCTION [id number] 23:49: 00 Test Item Value Reference Range Comments TOTAL PROTEIN (BEAKER) (test xjyn=334) 6.8 gm/dL 6.0-8.3 ALBUMIN (BEAKER) (test tesv=8764) 3.7 g/dL 3.5-5.0 BILIRUBIN TOTAL (BEAKER) (test icyc=607) 0.4 mg/dL 0.2-1.2 BILIRUBIN DIRECT (BEAKER) (test dehe=492) 0.2 mg/dL 0.1-0.5 ALKALINE PHOSPHATASE (BEAKER) (test hlry=417) 75 U/L 40-150 AST (SGOT) (BEAKER) (test ivee=935) 30 U/L 5-34 ALT (SGPT) (BEAKER) (test qxac=293) 17 U/L 6-55 PROTHROMBIN [id number] 23:40:00 Test Item Value Reference Range Comments PROTIME (BEAKER) (test mcnw=929) 15.8 seconds 11.7-14.7 INR (BEAKER) (test vydc=582) 1.3 <=5.9 RECOMMENDED COUMADIN/WARFARIN INR THERAPY RANGESSTANDARD DOSE: 2.0 - 3.0 Includes: PROPHYLAXIS forvenous thrombosis, systemic embolization; TREATMENT for venous thrombosis and/or pulmonary embolus.HIGH RISK: Target INR is 2.5-3.5 for patients with mechanical heart valves.CBC W/PLT COUNT & AUTO [id number] 23:27:00 Test Item Value Reference Range Comments WHITE BLOOD CELL COUNT (BEAKER) (test txwv=355) 8.2 K/ L 3.5-10.5 RED BLOOD CELL COUNT (BEAKER) (test jdyn=143) 4.18 M/ L 3.93-5.22 HEMOGLOBIN (BEAKER) (test zegu=251) 11.9 GM/DL 11.2-15.7 HEMATOCRIT (BEAKER) (test dxbc=032) 38.2 % 34.1-44.9 MEAN CORPUSCULAR VOLUME (BEAKER) (test tpsv=177) 91.4 fL 79.4-94.8 MEAN CORPUSCULAR HEMOGLOBIN (BEAKER) (test 28.5 pg 25.6-32.2 qbqx=041) MEAN CORPUSCULAR HEMOGLOBIN CONC (BEAKER) (test 31.2 GM/DL 32.2-35.5 blzs=363) RED CELL DISTRIBUTION WIDTH (BEAKER) (test 14.6 % 11.7-14.4 lrlb=420) PLATELET COUNT (BEAKER) (test gixf=703) 199 K/CU MM 150-450 MEAN PLATELET VOLUME (BEAKER) (test ljay=877) 11.4 fL 9.4-12.3 NUCLEATED RED BLOOD CELLS (BEAKER) (test 0 /100 WBC 0-0 aplu=369) NEUTROPHILS RELATIVE PERCENT (BEAKER) (test 74 % legk=961) LYMPHOCYTES RELATIVE PERCENT (BEAKER) (test 20 % cpfi=304) MONOCYTES RELATIVE PERCENT (BEAKER) (test 4 % moqw=188) EOSINOPHILS RELATIVE PERCENT (BEAKER) (test 2 % njtb=560) BASOPHILS RELATIVE PERCENT (BEAKER) (test 0 % kypa=953) NEUTROPHILS ABSOLUTE COUNT (BEAKER) (test 6.05 K/ L 1.56-6.13 fitc=012) LYMPHOCYTES ABSOLUTE COUNT (BEAKER) (test 1.64 K/ L 1.18-3.74 luem=051) MONOCYTES ABSOLUTE COUNT (BEAKER) (test 0.33 K/ L 0.24-0.36 oiqa=577) EOSINOPHILS ABSOLUTE COUNT (BEAKER) (test 0.12 K/ L 0.04-0.36 qfbs=686) BASOPHILS ABSOLUTE COUNT (BEAKER) (test 0.01 K/ L 0.01-0.08 usdn=177) IMMATURE GRANULOCYTES-RELATIVE PERCENT (BEAKER) 1 % 0-1 (test vjyl=0337) RAD, CHEST, 1 VIEW, NON [id number] 21:51:00Reason for exam:->Stroke work up.Is the patient ?->UnknownShould this be performed at the bedside?- >YesFINAL REPORT Clinical History: Stroke workup Comparison Study: None Findings: The cardiac silhouette is enlarged. The lungs are within normal limits. The pleural spaces are clear. No significant bony or soft tissue abnormalities are seen. Impression: Cardiomegaly. Signed: Wellington Goodwinort Verified Date/Time: 12/07/2017 21:51:29 Reading Location: [address] Consult Reading Room POCT-GLUCOSE [id number] 11:34:00 Test Item Value Reference Range Comments POC-GLUCOSE METER (BEAKER) 84 mg/dL 70-[address] [facility] [address] [facility] (test zqgp=6485) [facility] [address] [id number] 08:58:00 Test Item Value Reference Range Comments PHOSPHORUS (BEAKER) (test ogmo=177) 4.4 mg/dL 2.3-4.7 [id number] 08:58:00 Test Item Value Reference Range Comments MAGNESIUM (BEAKER) (test evib=428) 2.3 mg/dL 1.6-2.6 BASIC METABOLIC [id number] 08:58:00 Test Item Value Reference Range Comments SODIUM (BEAKER) (test 142 meq/L 136-145 bspu=198) POTASSIUM (BEAKER) (test 3.9 meq/L 3.5-5.1 pklg=748) CHLORIDE (BEAKER) (test 108 meq/L 98-107 zhmk=150) CO2 (BEAKER) (test 26 meq/L 22-29 fkka=673) BLOOD UREA NITROGEN 16 mg/dL 7-21 (BEAKER) (test jrrp=069) CREATININE (BEAKER) (test 0.69 mg/dL 0.57-1.25 mtwu=185) GLUCOSE RANDOM (BEAKER) 86 mg/dL 70-105 (test wogb=125) CALCIUM (BEAKER) (test 8.6 mg/dL 8.4-10.2 fgwt=444) EGFR (BEAKER) (test 94 mL/min/1.73 sq m ESTIMATED GFR IS NOT vpia=8265) ACCURATE CREATININE CLEARANCE IN PREDICTING GLOMERULAR FILTRATION RATE. ESTIMATED GFR IS NOT APPLICABLE FOR DIALYSIS PATIENTS. HEPATIC FUNCTION [id number] 08:58:00 Test Item Value Reference Range Comments TOTAL PROTEIN (BEAKER) (test lfit=048) 6.8 gm/dL 6.0-8.3 ALBUMIN (BEAKER) (test iocd=2525) 3.6 g/dL 3.5-5.0 BILIRUBIN TOTAL (BEAKER) (test mjej=734) 0.4 mg/dL 0.2-1.2 BILIRUBIN DIRECT (BEAKER) (test xgwo=332) 0.2 mg/dL 0.1-0.5 ALKALINE PHOSPHATASE (BEAKER) (test cpza=319) 59 U/L 40-150 AST (SGOT) (BEAKER) (test yzqz=380) 24 U/L 5-34 ALT (SGPT) (BEAKER) (test zjsi=695) 17 U/L 6-55 POCT-GLUCOSE [id number] 08:20:00 Test Item Value Reference Range Comments POC-GLUCOSE METER (BEAKER) 143 mg/dL 70-[address] [facility] [address] [facility] (test xlis=3911) [facility] [address] PROTHROMBIN [id number] 05:55:00 Test Item Value Reference Range Comments PROTIME (BEAKER) (test ccgn=115) 13.4 seconds 11.7-14.7 INR (BEAKER) (test hutg=556) 1.0 <=5.9 RECOMMENDED COUMADIN/WARFARIN INR THERAPY RANGESSTANDARD DOSE: 2.0 - 3.0 Includes: PROPHYLAXIS forvenous thrombosis, systemic embolization; TREATMENT for venous thrombosis and/or pulmonary embolus.HIGH RISK: Target INR is 2.5-3.5 for patients with mechanical heart valves.POCT-GLUCOSE [id number] 20:32:00 Test Item Value Reference Range Comments POC-GLUCOSE METER (BEAKER) 90 mg/dL 70-110 TESTED AT [address] (test idpe=2736) [place] [address] POCT-GLUCOSE [id number] 16:47:00 Test Item Value Reference Range Comments POC-GLUCOSE METER (BEAKER) 79 mg/dL 70-110 TESTED AT [address] (test spbo=1154) [place] [address] POCT-GLUCOSE [id number] 07:47:00 Test Item Value Reference Range Comments POC-GLUCOSE METER (BEAKER) 97 mg/dL 70-110 TESTED AT [address] (test mkjo=8262) [place] [address] TROPONIN [id number] 07:02:00 Test Item Value Reference Range Comments TROPONIN I (BEAKER) (test gnvp=074) < ng/mL 0.00-0.03 Troponin I (TnI) levels [...] failure, acidosis, acute neurological disease, and persistent tachyarrhythmia.[id number] 07:00:00 Test Item Value Reference Range Comments PHOSPHORUS (BEAKER) (test cplk=386) 5.0 mg/dL 2.3-4.7 [id number] 07:00:00 Test Item Value Reference Range Comments MAGNESIUM (BEAKER) (test mseh=354) 1.9 mg/dL 1.6-2.6 BASIC METABOLIC [id number] 07:00:00 Test Item Value Reference Range Comments SODIUM (BEAKER) (test 141 meq/L 136-145 jrac=105) POTASSIUM (BEAKER) (test 4.0 meq/L 3.5-5.1 ccap=622) CHLORIDE (BEAKER) (test 106 meq/L 98-107 icpe=987) CO2 (BEAKER) (test 25 meq/L 22-29 cxog=998) BLOOD UREA NITROGEN 14 mg/dL 7-21 (BEAKER) (test knvm=376) CREATININE (BEAKER) (test 0.72 mg/dL 0.57-1.25 xhxl=951) GLUCOSE RANDOM (BEAKER) 109 mg/dL 70-105 (test lpvr=733) CALCIUM (BEAKER) (test 9.5 mg/dL 8.4-10.2 xxxe=764) EGFR (BEAKER) (test 89 mL/min/1.73 sq m ESTIMATED GFR IS NOT ocnp=1659) ACCURATE CREATININE CLEARANCE IN PREDICTING GLOMERULAR FILTRATION RATE. ESTIMATED GFR IS NOT APPLICABLE FOR DIALYSIS PATIENTS. HEPATIC FUNCTION [id number] 07:00:00 Test Item Value Reference Range Comments TOTAL PROTEIN (BEAKER) (test bzan=291) 7.7 gm/dL 6.0-8.3 ALBUMIN (BEAKER) (test zsjk=5266) 4.0 g/dL 3.5-5.0 BILIRUBIN TOTAL (BEAKER) (test lifs=517) 0.5 mg/dL 0.2-1.2 BILIRUBIN DIRECT (BEAKER) (test bmdg=231) 0.2 mg/dL 0.1-0.5 ALKALINE PHOSPHATASE (BEAKER) (test itns=421) 69 U/L 40-150 AST (SGOT) (BEAKER) (test etco=969) 34 U/L 5-34 ALT (SGPT) (BEAKER) (test adbd=438) 21 U/L 6-55 PROTHROMBIN [id number] 06:31:00 Test Item Value Reference Range Comments PROTIME (BEAKER) (test dtob=653) 14.0 seconds 11.7-14.7 INR (BEAKER) (test mlyf=055) 1.1 <=5.9 RECOMMENDED COUMADIN/WARFARIN INR THERAPY RANGESSTANDARD DOSE: 2.0 - 3.0 Includes: PROPHYLAXIS forvenous thrombosis, systemic embolization; TREATMENT for venous thrombosis and/or pulmonary embolus.HIGH RISK: Target INR is 2.5-3.5 for patients with mechanical heart valves.CBC W/PLT COUNT & AUTO [id number] 06:28:00 Test Item Value Reference Range Comments WHITE BLOOD CELL COUNT (BEAKER) (test tcuu=668) 8.9 K/ L 3.5-10.5 RED BLOOD CELL COUNT (BEAKER) (test ggth=069) 4.55 M/ L 3.93-5.22 HEMOGLOBIN (BEAKER) (test jjbm=911) 13.0 GM/DL 11.2-15.7 HEMATOCRIT (BEAKER) (test vqff=906) 42.0 % 34.1-44.9 MEAN CORPUSCULAR VOLUME (BEAKER) (test pzok=381) 92.3 fL 79.4-94.8 MEAN CORPUSCULAR HEMOGLOBIN (BEAKER) (test 28.6 pg 25.6-32.2 ocaj=096) MEAN CORPUSCULAR HEMOGLOBIN CONC (BEAKER) (test 31.0 GM/DL 32.2-35.5 vltl=471) RED CELL DISTRIBUTION WIDTH (BEAKER) (test 13.9 % 11.7-14.4 xagn=826) PLATELET COUNT (BEAKER) (test jkku=604) 202 K/CU MM 150-450 MEAN PLATELET VOLUME (BEAKER) (test kalq=177) 12.6 fL 9.4-12.3 NUCLEATED RED BLOOD CELLS (BEAKER) (test 0 /100 WBC 0-0 sphy=032) NEUTROPHILS RELATIVE PERCENT (BEAKER) (test 70 % fzue=724) LYMPHOCYTES RELATIVE PERCENT (BEAKER) (test 23 % naxm=130) MONOCYTES RELATIVE PERCENT (BEAKER) (test 4 % pgmk=825) EOSINOPHILS RELATIVE PERCENT (BEAKER) (test 3 % kvao=666) BASOPHILS RELATIVE PERCENT (BEAKER) (test 0 % bvfe=965) NEUTROPHILS ABSOLUTE COUNT (BEAKER) (test 6.19 K/ L 1.56-6.13 zmmt=301) LYMPHOCYTES ABSOLUTE COUNT (BEAKER) (test 2.03 K/ L 1.18-3.74 aokl=428) MONOCYTES ABSOLUTE COUNT (BEAKER) (test 0.37 K/ L 0.24-0.36 rfro=574) EOSINOPHILS ABSOLUTE COUNT (BEAKER) (test 0.24 K/ L 0.04-0.36 qozg=021) BASOPHILS ABSOLUTE COUNT (BEAKER) (test 0.02 K/ L 0.01-0.08 urnu=388) IMMATURE GRANULOCYTES-RELATIVE PERCENT (BEAKER) 0 % 0-1 (test nmrd=7465) CREATINE KINASE (CK), TOTAL AND [id number] 01:39:00 Test Item Value Reference Range Comments CREATINE KINASE TOTAL (BEAKER) (test ywfk=371) 55 U/L 29-200 CREATINE KINASE-MB (BEAKER) (test avll=808) 1.1 ng/mL 0.0-6.6 CREATINE KINASE-MB INDEX (BEAKER) (test zpom=573) 2.0 % CK-MB Reference Range:<6.7 Normal6.7-10.0 Borderline>10.0 AbnormalTROPONIN [id number] 01:39:00 Test Item Value Reference Range Comments TROPONIN I (BEAKER) (test zrzs=227) < ng/mL 0.00-0.03 Troponin I (TnI) levels [...] acidosis, acute neurological disease, and persistent tachyarrhythmia.POCT-GLUCOSE [id number] 12:39:00 Test Item Value Reference Range Comments POC-GLUCOSE METER (BEAKER) 80 mg/dL 70-110 TESTED AT [address] (test jzsr=8404) [facility] [id number] POCT-GLUCOSE [id number] 07:07:00 Test Item Value Reference Range Comments POC-GLUCOSE METER (BEAKER) 100 mg/dL 70-110 TESTED AT [address] [address] (test jjvq=7109) [facility] [address] POCT-GLUCOSE [id number] 21:12:00 Test Item Value Reference Range Comments POC-GLUCOSE METER (BEAKER) 138 mg/dL 70-110 TESTED AT [address] (test unkn=3374) [facility] [address] POCT-GLUCOSE [id number] 12:04:00 Test Item Value Reference Range Comments POC-GLUCOSE METER (BEAKER) 113 mg/dL 70-[address] [facility] (test fijr=4064) [facility] [address] BASIC METABOLIC [id number] 04:26:00 Test Item Value Reference Range Comments SODIUM (BEAKER) (test 141 meq/L 136-145 anjh=247) POTASSIUM (BEAKER) (test 4.2 meq/L 3.5-5.1 Specimen moderately ehsk=396) hemolyzed CHLORIDE (BEAKER) (test 107 meq/L 98-107 gnoi=403) CO2 (BEAKER) (test 25 meq/L 22-29 zuok=186) BLOOD UREA NITROGEN 13 mg/dL 7-21 (BEAKER) (test shkw=654) CREATININE (BEAKER) (test 0.61 mg/dL 0.57-1.25 Specimen moderately bcoi=099) hemolyzed GLUCOSE RANDOM (BEAKER) 93 mg/dL 70-105 (test etkf=363) CALCIUM (BEAKER) (test 9.0 mg/dL 8.4-10.2 deex=331) EGFR (BEAKER) (test 108 mL/min/1.73 sq m ESTIMATED GFR IS NOT nesf=5446) ACCURATE CREATININE CLEARANCE IN PREDICTING GLOMERULAR FILTRATION RATE. ESTIMATED GFR IS NOT APPLICABLE FOR DIALYSIS PATIENTS. CBC W/PLT COUNT & AUTO [id number] 04:02:00 Test Item Value Reference Range Comments WHITE BLOOD CELL COUNT (BEAKER) (test azcn=108) 8.4 K/ L 3.5-10.5 RED BLOOD CELL COUNT (BEAKER) (test chlh=401) 4.15 M/ L 3.93-5.22 HEMOGLOBIN (BEAKER) (test ggxg=678) 11.8 GM/DL 11.2-15.7 HEMATOCRIT (BEAKER) (test obrl=669) 37.9 % 34.1-44.9 MEAN CORPUSCULAR VOLUME (BEAKER) (test nmyp=942) 91.3 fL 79.4-94.8 MEAN CORPUSCULAR HEMOGLOBIN (BEAKER) (test 28.4 pg 25.6-32.2 qbnf=502) MEAN CORPUSCULAR HEMOGLOBIN CONC (BEAKER) (test 31.1 GM/DL 32.2-35.5 wxju=672) RED CELL DISTRIBUTION WIDTH (BEAKER) (test 14.1 % 11.7-14.4 zdjw=566) PLATELET COUNT (BEAKER) (test iktd=922) 200 K/CU MM 150-450 MEAN PLATELET VOLUME (BEAKER) (test bipd=585) 11.9 fL 9.4-12.3 NUCLEATED RED BLOOD CELLS (BEAKER) (test 0 /100 WBC 0-0 jtqp=028) NEUTROPHILS RELATIVE PERCENT (BEAKER) (test 73 % htam=007) LYMPHOCYTES RELATIVE PERCENT (BEAKER) (test 19 % hgkv=743) MONOCYTES RELATIVE PERCENT (BEAKER) (test 5 % wrsx=554) EOSINOPHILS RELATIVE PERCENT (BEAKER) (test 3 % nufn=415) BASOPHILS RELATIVE PERCENT (BEAKER) (test 0 % pvmm=993) NEUTROPHILS ABSOLUTE COUNT (BEAKER) (test 6.08 K/ L 1.56-6.13 icgl=534) LYMPHOCYTES ABSOLUTE COUNT (BEAKER) (test 1.62 K/ L 1.18-3.74 kpua=049) MONOCYTES ABSOLUTE COUNT (BEAKER) (test 0.39 K/ L 0.24-0.36 bgjt=593) EOSINOPHILS ABSOLUTE COUNT (BEAKER) (test 0.24 K/ L 0.04-0.36 sllk=619) BASOPHILS ABSOLUTE COUNT (BEAKER) (test 0.01 K/ L 0.01-0.08 slig=371) IMMATURE GRANULOCYTES-RELATIVE PERCENT (BEAKER) 1 % 0-1 (test lopi=2285) CLOSTRIDIUM DIFFICILE TOXIN [id number] 13:44:00 Test Item Value Reference Range Comments CLOSTRIDIUM DIFFICILE TOXIN, PCR (BEAKER) (test Not Detected Not Detected uutt=5887) This qualitative real-time polymerase chain reaction assay [...] a positive result is not recommended.CT, CTANGIO [id number] 06:59:00Addendum BeginsREPORT STATUS:A Three-dimensional post intravenous contrast images of the cerebral vasculature were created on a free standing workstation for better visualization of cerebral vascular anatomy and pathology. Signed: SukhdeepParish pillaian MDReport Verified Date/Time: 04/12/2017 06:59:20 Reading Location: [address] Ortho Consult Reading RoomAddendum EndsFINAL REPORT Noncontrast [...] MDReport Verified Date/Time: 04/07/2017 01:12:44 Reading Location: [facility] [id number] Ortho Consult Reading Room BASIC METABOLIC [id number] 05:37:00 Test Item Value Reference Range Comments SODIUM (BEAKER) (test 142 meq/L 136-145 irki=363) POTASSIUM (BEAKER) (test 3.7 meq/L 3.5-5.1 Specimen slightly siiz=826) hemolyzed CHLORIDE (BEAKER) (test 105 meq/L 98-107 iocv=759) CO2 (BEAKER) (test 27 meq/L 22-29 pjds=386) BLOOD UREA NITROGEN 11 mg/dL 7-21 (BEAKER) (test otux=800) CREATININE (BEAKER) (test 0.66 mg/dL 0.57-1.25 Specimen slightly okfl=208) hemolyzed GLUCOSE RANDOM (BEAKER) 97 mg/dL 70-105 (test vvdp=716) CALCIUM (BEAKER) (test 9.2 mg/dL 8.4-10.2 ayhn=750) EGFR (BEAKER) (test 99 mL/min/1.73 sq m ESTIMATED GFR IS NOT apsp=8208) ACCURATE CREATININE CLEARANCE IN PREDICTING GLOMERULAR FILTRATION RATE. ESTIMATED GFR IS NOT APPLICABLE FOR DIALYSIS PATIENTS. CBC (HEMOGRAM ONLY)2017-04-12 05:17:00 Test Item Value Reference Range Comments WHITE BLOOD CELL COUNT (BEAKER) (test cbzh=416) 7.7 K/ L 3.5-10.5 RED BLOOD CELL COUNT (BEAKER) (test drow=957) 4.17 M/ L 3.93-5.22 HEMOGLOBIN (BEAKER) (test zoyw=088) 12.0 GM/DL 11.2-15.7 HEMATOCRIT (BEAKER) (test zmnb=402) 38.0 % 34.1-44.9 MEAN CORPUSCULAR VOLUME (BEAKER) (test bbvy=412) 91.1 fL 79.4-94.8 MEAN CORPUSCULAR HEMOGLOBIN (BEAKER) (test 28.8 pg 25.6-32.2 yonx=011) MEAN CORPUSCULAR HEMOGLOBIN CONC (BEAKER) (test 31.6 GM/DL 32.2-35.5 jwxa=033) RED CELL DISTRIBUTION WIDTH (BEAKER) (test 14.0 % 11.7-14.4 ncpl=047) PLATELET COUNT (BEAKER) (test uijd=464) 219 K/CU MM 150-450 MEAN PLATELET VOLUME (BEAKER) (test cptw=814) 11.6 fL 9.4-12.3 NUCLEATED RED BLOOD CELLS (BEAKER) (test 0 /100 WBC 0-0 qqpc=611) POCT-GLUCOSE [id number] 17:55:00 Test Item Value Reference Range Comments POC-GLUCOSE METER (BEAKER) 111 mg/dL 70-110 TESTED AT [address] (test qxue=2401) [place] [id number] POCT-GLUCOSE [id number] 12:02:00 Test Item Value Reference Range Comments POC-GLUCOSE METER (BEAKER) 100 mg/dL 70-110 TESTED AT [address] (test kktc=1255) [place] [id number] POCT-GLUCOSE [id number] 07:50:00 Test Item Value Reference Range Comments POC-GLUCOSE METER (BEAKER) 110 mg/dL 70-110 TESTED AT [address] (test rftr=3890) [place] [id number] POCT-GLUCOSE [id number] 16:56:00 Test Item Value Reference Range Comments POC-GLUCOSE METER (BEAKER) 104 mg/dL 70-110 TESTED AT [address] (test qldw=9648) [place] [id number] POCT-GLUCOSE [id number] 12:22:00 Test Item Value Reference Range Comments POC-GLUCOSE METER (BEAKER) 84 mg/dL 70-[address] [facility] [address] (test rrtg=3852) [facility] [address] HEMOGLOBIN [id number] 08:46:00 Test Item Value Reference Range Comments HEMOGLOBIN A1C (BEAKER) (test bkgv=600) 6.2 % 4.3-6.1 BASIC METABOLIC [id number] 06:42:00 Test Item Value Reference Range Comments SODIUM (BEAKER) (test 142 meq/L 136-145 crfr=199) POTASSIUM (BEAKER) (test 4.1 meq/L 3.5-5.1 Specimen slightly zalh=430) hemolyzed CHLORIDE (BEAKER) (test 104 meq/L 98-107 igzj=707) CO2 (BEAKER) (test 28 meq/L 22-29 iyng=091) BLOOD UREA NITROGEN 9 mg/dL 7-21 (BEAKER) (test dckt=239) CREATININE (BEAKER) (test 0.60 mg/dL 0.57-1.25 Specimen slightly cmsf=270) hemolyzed GLUCOSE RANDOM (BEAKER) 96 mg/dL 70-105 (test qtnh=105) CALCIUM (BEAKER) (test 9.1 mg/dL 8.4-10.2 navf=197) EGFR (BEAKER) (test 110 mL/min/1.73 sq m ESTIMATED GFR IS NOT apag=4665) ACCURATE CREATININE CLEARANCE IN PREDICTING GLOMERULAR FILTRATION RATE. ESTIMATED GFR IS NOT APPLICABLE FOR DIALYSIS PATIENTS. CBC W/PLT COUNT & AUTO [id number] 06:19:00 Test Item Value Reference Range Comments WHITE BLOOD CELL COUNT (BEAKER) (test rhcl=474) 7.5 K/ L 3.5-10.5 RED BLOOD CELL COUNT (BEAKER) (test hjpp=736) 4.12 M/ L 3.93-5.22 HEMOGLOBIN (BEAKER) (test sdww=722) 11.8 GM/DL 11.2-15.7 HEMATOCRIT (BEAKER) (test txcp=041) 37.6 % 34.1-44.9 MEAN CORPUSCULAR VOLUME (BEAKER) (test zutc=674) 91.3 fL 79.4-94.8 MEAN CORPUSCULAR HEMOGLOBIN (BEAKER) (test 28.6 pg 25.6-32.2 ckzz=251) MEAN CORPUSCULAR HEMOGLOBIN CONC (BEAKER) (test 31.4 GM/DL 32.2-35.5 sngm=276) RED CELL DISTRIBUTION WIDTH (BEAKER) (test 13.8 % 11.7-14.4 bbja=813) PLATELET COUNT (BEAKER) (test esqq=961) 192 K/CU MM 150-450 MEAN PLATELET VOLUME (BEAKER) (test htlv=798) 11.6 fL 9.4-12.3 NUCLEATED RED BLOOD CELLS (BEAKER) (test 0 /100 WBC 0-0 ioky=582) NEUTROPHILS RELATIVE PERCENT (BEAKER) (test 77 % obgd=484) LYMPHOCYTES RELATIVE PERCENT (BEAKER) (test 16 % ifmj=534) MONOCYTES RELATIVE PERCENT (BEAKER) (test 4 % fsnf=032) EOSINOPHILS RELATIVE PERCENT (BEAKER) (test 2 % kmbv=403) BASOPHILS RELATIVE PERCENT (BEAKER) (test 0 % qfdm=671) NEUTROPHILS ABSOLUTE COUNT (BEAKER) (test 5.82 K/ L 1.56-6.13 rpqb=003) LYMPHOCYTES ABSOLUTE COUNT (BEAKER) (test 1.21 K/ L 1.18-3.74 hopm=630) MONOCYTES ABSOLUTE COUNT (BEAKER) (test 0.31 K/ L 0.24-0.36 fvbo=601) EOSINOPHILS ABSOLUTE COUNT (BEAKER) (test 0.15 K/ L 0.04-0.36 ctla=033) BASOPHILS ABSOLUTE COUNT (BEAKER) (test 0.01 K/ L 0.01-0.08 nidg=090) IMMATURE GRANULOCYTES-RELATIVE PERCENT (BEAKER) 1 % 0-1 (test adsn=7964) POCT-GLUCOSE [id number] 12:07:00 Test Item Value Reference Range Comments POC-GLUCOSE METER (BEAKER) 110 mg/dL 70-[address] [facility] [address] [place] [address] (test joom=9953) [facility] [address] CT, BRAIN, WITHOUT [id number] 06:55:00FINAL REPORT Clinical history : Decreased alertnessComparison [...] Verified Date/Time: 04/09/2017 06 :55:25 Reading Location: [facility] [id number] Consult Reading Room BASIC METABOLIC [id number] 05:57:00 Test Item Value Reference Range Comments SODIUM (BEAKER) (test 140 meq/L 136-145 iish=955) POTASSIUM (BEAKER) (test 3.7 meq/L 3.5-5.1 nxat=060) CHLORIDE (BEAKER) (test 103 meq/L 98-107 ximn=371) CO2 (BEAKER) (test 29 meq/L 22-29 gsol=868) BLOOD UREA NITROGEN 7 mg/dL 7-21 (BEAKER) (test hiwu=144) CREATININE (BEAKER) (test 0.56 mg/dL 0.57-1.25 xauj=368) GLUCOSE RANDOM (BEAKER) 110 mg/dL 70-105 (test wbtk=298) CALCIUM (BEAKER) (test 8.7 mg/dL 8.4-10.2 feaj=749) EGFR (BEAKER) (test 119 mL/min/1.73 sq m ESTIMATED GFR IS NOT jiil=3207) ACCURATE CREATININE CLEARANCE IN PREDICTING GLOMERULAR FILTRATION RATE. ESTIMATED GFR IS NOT APPLICABLE FOR DIALYSIS PATIENTS. CBC W/PLT COUNT & AUTO [id number] 04:54:00 Test Item Value Reference Range Comments WHITE BLOOD CELL COUNT (BEAKER) (test vzzw=023) 8.1 K/ L 3.5-10.5 RED BLOOD CELL COUNT (BEAKER) (test gphc=092) 4.07 M/ L 3.93-5.22 HEMOGLOBIN (BEAKER) (test xdck=676) 11.6 GM/DL 11.2-15.7 HEMATOCRIT (BEAKER) (test qukx=389) 37.3 % 34.1-44.9 MEAN CORPUSCULAR VOLUME (BEAKER) (test koxh=352) 91.6 fL 79.4-94.8 MEAN CORPUSCULAR HEMOGLOBIN (BEAKER) (test 28.5 pg 25.6-32.2 umwb=274) MEAN CORPUSCULAR HEMOGLOBIN CONC (BEAKER) (test 31.1 GM/DL 32.2-35.5 vnqz=933) RED CELL DISTRIBUTION WIDTH (BEAKER) (test 13.6 % 11.7-14.4 txwy=003) PLATELET COUNT (BEAKER) (test frqr=414) 171 K/CU MM 150-450 MEAN PLATELET VOLUME (BEAKER) (test hznd=754) 11.3 fL 9.4-12.3 NUCLEATED RED BLOOD CELLS (BEAKER) (test 0 /100 WBC 0-0 fpye=487) NEUTROPHILS RELATIVE PERCENT (BEAKER) (test 77 % vinn=715) LYMPHOCYTES RELATIVE PERCENT (BEAKER) (test 16 % igsh=164) MONOCYTES RELATIVE PERCENT (BEAKER) (test 5 % tvbi=657) EOSINOPHILS RELATIVE PERCENT (BEAKER) (test 2 % jycf=615) BASOPHILS RELATIVE PERCENT (BEAKER) (test 0 % xcne=595) NEUTROPHILS ABSOLUTE COUNT (BEAKER) (test 6.20 K/ L 1.56-6.13 ocgg=680) LYMPHOCYTES ABSOLUTE COUNT (BEAKER) (test 1.30 K/ L 1.18-3.74 iatn=488) MONOCYTES ABSOLUTE COUNT (BEAKER) (test 0.38 K/ L 0.24-0.36 lorv=259) EOSINOPHILS ABSOLUTE COUNT (BEAKER) (test 0.14 K/ L 0.04-0.36 tgnz=976) BASOPHILS ABSOLUTE COUNT (BEAKER) (test 0.01 K/ L 0.01-0.08 vxtn=841) IMMATURE GRANULOCYTES-RELATIVE PERCENT (BEAKER) 1 % 0-1 (test odxc=5712) POCT-GLUCOSE [id number] 01:34:00 Test Item Value Reference Range Comments POC-GLUCOSE METER (BEAKER) 92 mg/dL 70-[address] [facility] [address] [facility] (test poju=5806) [facility] [address] POCT-GLUCOSE [id number] 19:20:00 Test Item Value Reference Range Comments POC-GLUCOSE METER (BEAKER) 85 mg/dL 70-110 TESTED AT [address] (test hsvq=4035) [place] [id number] CT, BRAIN, WITHOUT [id number] 15:47:00FINAL REPORT CT head without contrast. Comparisons: [...] evidence of acute intracranial abnormality. Signed: Darren Tijerina Verified Date/Time: 04/08/2017 15:47:42 POCT- GLUCOSE [id number] 12:44:00 Test Item Value Reference Range Comments POC-GLUCOSE METER (BEAKER) 94 mg/dL 70-110 TESTED AT [address] (test wzsg=1801) [facility] [address] BASIC METABOLIC [id number] 05:05:00 Test Item Value Reference Range Comments SODIUM (BEAKER) (test 142 meq/L 136-145 bmmn=862) POTASSIUM (BEAKER) (test 4.0 meq/L 3.5-5.1 mpxw=326) CHLORIDE (BEAKER) (test 107 meq/L 98-107 xijv=717) CO2 (BEAKER) (test 27 meq/L 22-29 bqtl=446) BLOOD UREA NITROGEN 9 mg/dL 7-21 (BEAKER) (test clax=098) CREATININE (BEAKER) (test 0.59 mg/dL 0.57-1.25 lkbx=218) GLUCOSE RANDOM (BEAKER) 105 mg/dL 70-105 (test gtno=326) CALCIUM (BEAKER) (test 8.7 mg/dL 8.4-10.2 apqj=944) EGFR (BEAKER) (test 112 mL/min/1.73 sq m ESTIMATED GFR IS NOT tjyi=9420) ACCURATE CREATININE CLEARANCE IN PREDICTING GLOMERULAR FILTRATION RATE. ESTIMATED GFR IS NOT APPLICABLE FOR DIALYSIS PATIENTS. CBC W/PLT COUNT & AUTO [id number] 04:28:00 Test Item Value Reference Range Comments WHITE BLOOD CELL COUNT (BEAKER) (test eupo=624) 7.1 K/ L 3.5-10.5 RED BLOOD CELL COUNT (BEAKER) (test pkvq=728) 3.90 M/ L 3.93-5.22 HEMOGLOBIN (BEAKER) (test kuix=917) 11.0 GM/DL 11.2-15.7 HEMATOCRIT (BEAKER) (test gkyd=879) 36.6 % 34.1-44.9 MEAN CORPUSCULAR VOLUME (BEAKER) (test tjwv=573) 93.8 fL 79.4-94.8 MEAN CORPUSCULAR HEMOGLOBIN (BEAKER) (test 28.2 pg 25.6-32.2 pvdy=920) MEAN CORPUSCULAR HEMOGLOBIN CONC (BEAKER) (test 30.1 GM/DL 32.2-35.5 lsht=643) RED CELL DISTRIBUTION WIDTH (BEAKER) (test 14.2 % 11.7-14.4 wgkr=419) PLATELET COUNT (BEAKER) (test vnpq=892) 187 K/CU MM 150-450 MEAN PLATELET VOLUME (BEAKER) (test wmap=735) 10.9 fL 9.4-12.3 NUCLEATED RED BLOOD CELLS (BEAKER) (test 0 /100 WBC 0-0 rhdo=260) NEUTROPHILS RELATIVE PERCENT (BEAKER) (test 73 % xfia=801) LYMPHOCYTES RELATIVE PERCENT (BEAKER) (test 19 % cith=104) MONOCYTES RELATIVE PERCENT (BEAKER) (test 5 % esgd=427) EOSINOPHILS RELATIVE PERCENT (BEAKER) (test 2 % ycrt=830) BASOPHILS RELATIVE PERCENT (BEAKER) (test 0 % ikvl=771) NEUTROPHILS ABSOLUTE COUNT (BEAKER) (test 5.22 K/ L 1.56-6.13 ynux=546) LYMPHOCYTES ABSOLUTE COUNT (BEAKER) (test 1.37 K/ L 1.18-3.74 tmck=005) MONOCYTES ABSOLUTE COUNT (BEAKER) (test 0.34 K/ L 0.24-0.36 qnhr=703) EOSINOPHILS ABSOLUTE COUNT (BEAKER) (test 0.13 K/ L 0.04-0.36 mdqr=782) BASOPHILS ABSOLUTE COUNT (BEAKER) (test 0.01 K/ L 0.01-0.08 hzuk=522) IMMATURE GRANULOCYTES-RELATIVE PERCENT (BEAKER) 1 % 0-1 (test mcil=1610) POCT-GLUCOSE [id number] 17:32:00 Test Item Value Reference Range Comments POC-GLUCOSE METER (BEAKER) 90 mg/dL 70-110 TESTED AT [address] (test rxcv=3637) [facility] [address] POCT-GLUCOSE [id number] 12:02:00 Test Item Value Reference Range Comments POC-GLUCOSE METER (BEAKER) 91 mg/dL 70-110 TESTED AT [address] (test zvgr=2612) [place] [address] EEG AWAKE AND [id number] 11:38:00Reason for exam:->R/O subclinical seizuresDATE OF [id number] OF REPORT: 12-66-3200DCX: [id number]: 17- 1801Start time: 09:54Stop time: 10:18ICD-10: G 93.40CPT Code: 36102 HISTORY: 41 y.o. female with history of morbid obesity, DM2 who presented today to OSH with R sided facial droop and LUE weakness . Patient was evaluated at OSH where patient was started with tPA after normal CT. Now with acute encephalopathy MEDICATIONS THAT COULD AFFECT EEG: TECHNICAL SUMMARY: This is a digital EEG recorded with 32 input channels on a [employer] system and then reviewed with bipolar and [...] additional EEG recordings. Javi Mae MDNeurophysiology Fellow [id number] Note: I personally reviewed this EEG record in its entirety and I agreewith the details of this report. Kitty Montejo MD, PhDEpilepsy Attending 11 :38 AMCREATINE KINASE (CK), TOTAL AND [id number] 09:35:00 Test Item Value Reference Range Comments CREATINE KINASE TOTAL (BEAKER) (test ddrp=332) 52 U/L 29-200 CREATINE KINASE-MB (BEAKER) (test rndy=882) 1.2 ng/mL 0.0-6.6 CREATINE KINASE-MB INDEX (BEAKER) (test xhtt=850) 2.3 % CK-MB Reference Range:<6.7 Normal6.7-10.0 Borderline>10.0 AbnormalTROPONIN [id number] 09:31:00 Test Item Value Reference Range Comments TROPONIN I (BEAKER) (test vxoj=987) < ng/mL 0.00-0.03 Troponin I (TnI) levels [...] failure, acidosis, acute neurological disease, and persistent tachyarrhythmia.[id number] 09:28:00 Test Item Value Reference Range Comments AMMONIA (BEAKER) (test zwrt=616) 34 mol/L 18-72 TSH/FREE T4 IF [id number] 04:28:00 Test Item Value Reference Range Comments THYROID STIMULATING HORMONE (BEAKER) (test 1.12 uIU/mL 0.35-4.94 siot=178) VITAMIN B12 AND [id number] 04:28:00 Test Item Value Reference Range Comments VITAMIN B12 (BEAKER) (test rlsm=055) 417 pg/mL 213-816 FOLATE (BEAKER) (test vqfq=803) 13.6 ng/mL >=7.0 CBC W/PLT COUNT & AUTO [id number] 03:27:00 Test Item Value Reference Range Comments WHITE BLOOD CELL COUNT (BEAKER) (test edds=187) 8.1 K/ L 3.5-10.5 RED BLOOD CELL COUNT (BEAKER) (test tkbv=817) 3.91 M/ L 3.93-5.22 HEMOGLOBIN (BEAKER) (test ltbs=768) 11.4 GM/DL 11.2-15.7 HEMATOCRIT (BEAKER) (test xyrw=175) 35.8 % 34.1-44.9 MEAN CORPUSCULAR VOLUME (BEAKER) (test bmwr=910) 91.6 fL 79.4-94.8 MEAN CORPUSCULAR HEMOGLOBIN (BEAKER) (test 29.2 pg 25.6-32.2 zlbm=427) MEAN CORPUSCULAR HEMOGLOBIN CONC (BEAKER) (test 31.8 GM/DL 32.2-35.5 ipwt=808) RED CELL DISTRIBUTION WIDTH (BEAKER) (test 14.3 % 11.7-14.4 wxcf=713) PLATELET COUNT (BEAKER) (test ddlq=548) 166 K/CU MM 150-450 MEAN PLATELET VOLUME (BEAKER) (test vtbd=869) 12.4 fL 9.4-12.3 NUCLEATED RED BLOOD CELLS (BEAKER) (test 0 /100 WBC 0-0 xdii=219) NEUTROPHILS RELATIVE PERCENT (BEAKER) (test 78 % chvt=965) LYMPHOCYTES RELATIVE PERCENT (BEAKER) (test 16 % mkqc=972) MONOCYTES RELATIVE PERCENT (BEAKER) (test 4 % xdnl=253) EOSINOPHILS RELATIVE PERCENT (BEAKER) (test 1 % zchl=721) BASOPHILS RELATIVE PERCENT (BEAKER) (test 0 % xeqd=583) NEUTROPHILS ABSOLUTE COUNT (BEAKER) (test 6.27 K/ L 1.56-6.13 wnav=499) LYMPHOCYTES ABSOLUTE COUNT (BEAKER) (test 1.30 K/ L 1.18-3.74 txpx=742) MONOCYTES ABSOLUTE COUNT (BEAKER) (test 0.32 K/ L 0.24-0.36 opfq=361) EOSINOPHILS ABSOLUTE COUNT (BEAKER) (test 0.09 K/ L 0.04-0.36 qonh=401) BASOPHILS ABSOLUTE COUNT (BEAKER) (test 0.02 K/ L 0.01-0.08 vrbp=879) IMMATURE GRANULOCYTES-RELATIVE PERCENT (BEAKER) 1 % 0-1 (test lvwe=5743) CREATINE KINASE (CK), TOTAL AND [id number] 03:11:00 Test Item Value Reference Range Comments CREATINE KINASE TOTAL (BEAKER) (test qvrb=781) 71 U/L 29-200 CREATINE KINASE-MB (BEAKER) (test pcrr=380) 1.5 ng/mL 0.0-6.6 CREATINE KINASE-MB INDEX (BEAKER) (test eqav=107) 2.1 % CK-MB Reference Range:<6.7 Normal6.7-10.0 Borderline>10.0 AbnormalFastingFastingTROPONIN [id number] 03:11:00 Test Item Value Reference Range Comments TROPONIN I (BEAKER) (test agzv=738) < ng/mL 0.00-0.03 Troponin I (TnI) levels [...] acute neurological disease, and persistent tachyarrhythmia.FastingBASIC METABOLIC [id number] 03:04:00 Test Item Value Reference Range Comments SODIUM (BEAKER) (test 139 meq/L 136-145 zjsr=897) POTASSIUM (BEAKER) (test 4.3 meq/L 3.5-5.1 Specimen moderately jxkk=967) hemolyzed CHLORIDE (BEAKER) (test 107 meq/L 98-107 kdyq=692) CO2 (BEAKER) (test 24 meq/L 22-29 irab=799) BLOOD UREA NITROGEN 12 mg/dL 7-21 (BEAKER) (test xhkt=127) CREATININE (BEAKER) (test 0.68 mg/dL 0.57-1.25 Specimen moderately lybw=596) hemolyzed GLUCOSE RANDOM (BEAKER) 175 mg/dL 70-105 (test whdf=951) CALCIUM (BEAKER) (test 8.5 mg/dL 8.4-10.2 ydsz=242) EGFR (BEAKER) (test 95 mL/min/1.73 sq m ESTIMATED GFR IS NOT fsdu=4463) ACCURATE CREATININE CLEARANCE IN PREDICTING GLOMERULAR FILTRATION RATE. ESTIMATED GFR IS NOT APPLICABLE FOR DIALYSIS PATIENTS. FastingLIPID [id number] 03:04:00 Test Item Value Reference Range Comments TRIGLYCERIDES (BEAKER) (test 99 mg/dL Specimen moderately avxk=723) hemolyzed CHOLESTEROL (BEAKER) (test 139 mg/dL Specimen moderately xwdh=814) hemolyzed HDL CHOLESTEROL (BEAKER) (test 43 mg/dL ziyl=681) LDL CHOLESTEROL CALCULATED 76 mg/dL (BEAKER) (test oflc=895) Triglyceride Reference Range: Low Risk <150 Borderline 150- 199 High Risk 200-499 Very High Risk >=500Cholesterol Reference Range: Low Risk <200 Borderline 200-239 High Risk > 240HDL Cholesterol Reference Range: Low Risk >=60 High Risk <40LDL Cholesterol Reference Range: Optimal <100 Near Optimal 100-129 Borderline 130-159 High 160-189 Very High >=190 FastingHEPATIC FUNCTION [id number] 03:04:00 Test Item Value Reference Range Comments TOTAL PROTEIN (BEAKER) (test 7.2 gm/dL 6.0-8.3 Specimen moderately hemolyzed mrfo=847) ALBUMIN (BEAKER) (test 3.4 g/dL 3.5-5.0 Specimen moderately hemolyzed gind=4440) BILIRUBIN TOTAL (BEAKER) (test 0.3 mg/dL 0.2-1.2 Specimen moderately hemolyzed cbyg=788) BILIRUBIN DIRECT (BEAKER) 0.1 mg/dL 0.1-0.5 Specimen moderately hemolyzed (test erwt=545) ALKALINE PHOSPHATASE (BEAKER) 74 U/L 40-150 (test elit=806) AST (SGOT) (BEAKER) (test 37 U/L 5-34 Specimen moderately hemolyzed ypho=881) ALT (SGPT) (BEAKER) (test 18 U/L 6-55 Specimen moderately mhxh=246) hemolyzed Fasting
[2018-10-01] MEDS ORDERED: HYDROCODONE/APAP 10/325 TAB ONE (23:51)
--- NOTE | 2018-10-02 02:02 | ER ---
Nurse's Notes [facility] Name: Kelle Calderón Age: 43 yrs Sex: Female : 1975 Arrival Date: 10/01/2018 Time: 23:21 Bed 23 Private MD: Candace Dhaliwal C Diagnosis: Sprain of ankle Presentation: 10/01 23:23 Presenting complaint: Patient states: I was playing baseball about an hour and 45 la1 minutes ago and rolled my right ankle, pt was initially ambulatory but after going home and sitting down could no longer stand up. Transition of care: patient was not received from another setting of care. Onset of symptoms was October 01, 2018. Risk Assessment: Do you want to hurt yourself or someone else? Patient reports no desire to harm self or others. Initial Sepsis Screen: Does the patient meet any 2 criteria? No. Patient's initial sepsis screen is negative. Does the patient have a suspected source of infection? No. Patient's initial sepsis screen is negative. Care prior to arrival: None. 23:23 Method Of Arrival: EMS: [facility] la1 23:23 Acuity: SIMRAN 4 la1 Historical: - Allergies: 23:26 Warfarin; la1 23:26 Plavix; la1 - PMHx: 23:26 Asthma; bells palsy; Chronic pain; CVA; Depression; Diabetes - NIDDM; GERD; la1 Hypertension; Irritable bowel syndrome; Kidney stones; lymphedema; Migraines; Sleep Apnea; - PSHx: 10/02 02:27 Unable to obtain; rv - Immunization history:: Adult Immunizations up to date. - Social history:: Smoking status: Patient/guardian denies using tobacco. - Ebola Screening: : No symptoms or risks identified at this time. Screenin/21 23:30 Abuse screen: Denies threats or abuse. Nutritional screening: No deficits noted. la1 Tuberculosis screening: No symptoms or risk factors identified. Fall Risk None identified. Assessment: 23:30 General: Appears in no apparent distress. Behavior is calm, cooperative. Pain: la1 Complains of pain in anterior aspect of right ankle and dorsum of right foot. Neuro: Level of Consciousness is awake, alert, obeys commands, Oriented to person, place, time, situation. Cardiovascular: Capillary refill < 3 seconds Patient's skin is warm and dry. Respiratory: Airway is patent Respiratory effort is even, unlabored, Respiratory pattern is regular, symmetrical. GI: No signs and/or symptoms were reported involving the gastrointestinal system. : No signs and/or symptoms were reported regarding the genitourinary system. Musculoskeletal: Circulation, motion, and sensation intact. Capillary refill < 3 seconds, is brisk, in bilateral toes. Range of motion: limited in right ankle. 10/02 00:33 Reassessment: Patient appears in no apparent distress at this time. No changes from la1 previously documented assessment. Patient and/or family updated on plan of care and expected duration. Pain level reassessed. 00:51 Reassessment: Patient appears in no apparent distress at this time. No changes from la1 previously documented assessment. Patient and/or family updated on plan of care and expected duration. Pain level reassessed. Patient is alert, oriented x 3, equal unlabored respirations, skin warm/dry/pink. 01:54 Reassessment: AWAITING XRAY RESULT. rv Vital Signs: 10/01 23:26 Weight 155.58 kg; Height 5 ft. 3 in. (160.02 cm); la1 23:34 BP 142 / 89; Pulse 78; Resp 20; Temp 97.9(O); Pulse Ox 100% ; lt1 10/02 00:00 BP 130 / 81 LA Supine; Pulse 64; Resp 16 S; Pulse Ox 97% on R/A; rv 00:30 BP 123 / 76 LA Supine; Pulse 68; Resp 17 S; Pulse Ox 97% on R/A; rv 01:00 BP 115 / 69 LA Supine; Pulse 58; Resp 16 S; Pulse Ox 95% on R/A; rv 01:30 BP 109 / 67 LA Supine; Pulse 62; Resp 18 S; Pulse Ox 97% on R/A; rv 02:26 BP 111 / 74 LA Supine; Pulse 76 LA; Resp 16 S; Pulse Ox 97% on R/A; rv 10/01 23:26 Body Mass Index 60.76 (155.58 kg, 160.02 cm) la1 ED Course: 10/01 23:21 Patient arrived in ED. am2 23:21 Candace Dhaliwal FNP is Private Physician. am2 23:22 Magdaleno Cifuentes, JOSEY is Primary Nurse. la1 23:23 Samuel Teague PA is PHCP. la1 23:23 Luis Eduardo Hernandez MD is Attending Physician. la1 23:24 Triage completed. la1 23:27 Arm band placed on left wrist. la1 23:31 Call light in reach. Side rails up X 1. la1 10/02 00:33 No provider procedures requiring assistance completed. la1 02:05 Ankle Right 3 View XRAY In Process Unspecified. EDMS 02:06 Foot Right 3 View XRAY In Process Unspecified. EDMS 02:27 Patient did not have IV access during this emergency room visit. rv Administered Medications: 10/01 23:45 Drug: Roy 10 mg-325 mg 1 tabs Route: PO; la1 Outcome: 10/02 02:01 Discharge ordered by . jr8 02:27 Discharged to home via wheelchair. rv 02:27 Condition: good 02:27 Discharge instructions given to patient, family, Instructed on discharge instructions, follow up and referral plans. Demonstrated understanding of instructions, follow-up care. 02:28 Patient left the ED. rv Signatures: Dispatcher [employer] EDIN Samuel Teague PA PA jrMagdaleno Whitfield RN RN la1 Coretta Lockwood Ronaldo, RN RN Thu Olivo
--- NOTE | 2018-10-02 02:02 | EDPHYS ---
Physician Documentation [facility] Name: Kelle Calderón Age: 43 yrs Sex: Female : 1975 Arrival Date: 10/01/2018 Time: 23:21 Bed 23 Private MD: Candace Dhaliwal C ED Physician Luis Eduardo Hernandez HPI: 10/02 00:04 This 43 yrs old Female presents to ER via EMS with complaints of Ankle Injury. jr8 00:04 The patient presents with decreased range of motion, pain. The complaints affect the jr8 right ankle. Onset: The symptoms/episode began/occurred acutely, today. Context: The problem was sustained outdoors, resulted from an unknown cause. Associated signs and symptoms: The patient has no apparent associated signs or symptoms. Modifying factors: The symptoms are alleviated by nothing, the symptoms are aggravated by weight bearing, movement. Severity of symptoms: At their worst the symptoms were moderate, in the emergency department the symptoms are unchanged. It is unknown whether or not the patient has had similar symptoms in the past. The patient has not recently seen a physician. Patient stated that she was outside playing with family and started to feel ankle pain. Denies falling but doesn't know if she twisted ankle or not. Now having right foot and ankle pain with ROM. Cannot bear weight on right side. No obvious deformity or signs of external trauma upon arrival . Historical: - Allergies: 10/01 23:26 Warfarin; la1 23:26 Plavix; la1 - PMHx: 23:26 Asthma; bells palsy; Chronic pain; CVA; Depression; Diabetes - NIDDM; GERD; la1 Hypertension; Irritable bowel syndrome; Kidney stones; lymphedema; Migraines; Sleep Apnea; - PSHx: 10/02 02:27 Unable to obtain; rv - Immunization history:: Adult Immunizations up to date. - Social history:: Smoking status: Patient/guardian denies using tobacco. - Ebola Screening: : No symptoms or risks identified at this time. ROS: 00:04 Eyes: Negative for injury, pain, redness, and discharge, ENT: Negative for injury, jr8 pain, and discharge, Neck: Negative for injury, pain, and swelling, Cardiovascular: Negative for chest pain, palpitations, and edema, Respiratory: Negative for shortness of breath, cough, wheezing, and pleuritic chest pain, Abdomen/GI: Negative for abdominal pain, nausea, vomiting, diarrhea, and constipation, Back: Negative for injury and pain, Skin: Negative for injury, rash, and discoloration, Neuro: Negative for headache, weakness, numbness, tingling, and seizure. 00:04 MS/extremity: Positive for decreased range of motion, pain, swelling, tenderness, of the right ankle. Exam: 00:04 Eyes: Pupils equal round and reactive to light, extra-ocular motions intact. Lids and jr8 lashes normal. Conjunctiva and sclera are non-icteric and not injected. Cornea within normal limits. Periorbital areas with no swelling, redness, or edema. ENT: Nares patent. No nasal discharge, no septal abnormalities noted. Tympanic membranes are normal and external auditory canals are clear. Oropharynx with no redness, swelling, or masses, exudates, or evidence of obstruction, uvula midline. Mucous membranes moist. Neck: Trachea midline, no thyromegaly or masses palpated, and no cervical lymphadenopathy. Supple, full range of motion without nuchal rigidity, or vertebral point tenderness. No Meningismus. Cardiovascular: Regular rate and rhythm with a normal S1 and S2. No gallops, murmurs, or rubs. Normal PMI, no JVD. No pulse deficits. Respiratory: Lungs have equal breath sounds bilaterally, clear to auscultation and percussion. No rales, rhonchi or wheezes noted. No increased work of breathing, no retractions or nasal flaring. Abdomen/GI: Soft, non-tender, with normal bowel sounds. No distension or tympany. No guarding or rebound. No evidence of tenderness throughout. Back: No spinal tenderness. No costovertebral tenderness. Full range of motion. Skin: Warm, dry with normal turgor. Normal color with no rashes, no lesions, and no evidence of cellulitis. Neuro: Awake and alert, GCS 15, oriented to person, place, time, and situation. Cranial nerves II-XII grossly intact. Motor strength 5/5 in all extremities. Sensory grossly intact. Cerebellar exam normal. Normal gait. 00:04 Musculoskeletal/extremity: Extremities: grossly normal except: noted in the right ankle: decreased ROM, pain, tenderness, noted in the dorsum of right foot: pain, tenderness, Circulation is intact in all extremities. Pulses: noted to be 2+ in the right dorsalis pedis artery and left dorsalis pedis artery, Sensation intact. Vital Signs: 10/01 23:26 Weight 155.58 kg; Height 5 ft. 3 in. (160.02 cm); la1 23:34 BP 142 / 89; Pulse 78; Resp 20; Temp 97.9(O); Pulse Ox 100% ; lt1 10/02 00:00 BP 130 / 81 LA Supine; Pulse 64; Resp 16 S; Pulse Ox 97% on R/A; rv 00:30 BP 123 / 76 LA Supine; Pulse 68; Resp 17 S; Pulse Ox 97% on R/A; rv 01:00 BP 115 / 69 LA Supine; Pulse 58; Resp 16 S; Pulse Ox 95% on R/A; rv 01:30 BP 109 / 67 LA Supine; Pulse 62; Resp 18 S; Pulse Ox 97% on R/A; rv 02:26 BP 111 / 74 LA Supine; Pulse 76 LA; Resp 16 S; Pulse Ox 97% on R/A; rv 10/01 23:26 Body Mass Index 60.76 (155.58 kg, 160.02 cm) la1 MDM: 10/01 23:29 Patient medically screened. jr8 10/02 02:00 Data reviewed: vital signs, nurses notes, radiologic studies, plain films. Data jr8 interpreted: Pulse oximetry: on room air is 97 %. Interpretation: normal. Counseling: I had a detailed discussion with the patient and/or guardian regarding: the historical points, exam findings, and any diagnostic results supporting the discharge/admit diagnosis, radiology results, the need for outpatient follow up, a family practitioner, to return to the emergency department if symptoms worsen or persist or if there are any questions or concerns that arise at home. 10/01 23:28 Order name: Ankle Right 3 View XRAY la1 10/01 23:28 Order name: Foot Right 3 View XRAY la1 Administered Medications: 10/01 23:45 Drug: [place] 10 mg-325 mg 1 tabs Route: PO; la1 Disposition: 10/03 01:31 Co-signature as Attending Physician, Luis Eduardo Hernandez MD. Disposition: 10/02/18 02:01 Discharged to Home. Impression: Sprain of ankle. - Condition is Stable. - Discharge Instructions: Ankle Sprain. - Medication Reconciliation Form, Thank You Letter, Antibiotic Education, Prescription Opioid Use form. - Follow up: Private Physician; When: 5 - 6 days; Reason: Recheck today's complaints, Continuance of care, Re-evaluation by your physician. - Problem is new. - Symptoms have improved. Signatures: Dispatcher [employer] EDMS Samule Teague PA PA jr8 Magdaleno Cifuentes RN RN la1 Luis Eduardo Hernandez MD MD Musa Chaves RN RN rv Corrections: (The following items were deleted from the chart) 10/02 02:28 02:01 10/02/2018 02:01 Discharged to Home. Impression: Sprain of ankle. Condition is rv Stable. Forms are Medication Reconciliation Form, Thank You Letter, Antibiotic Education, Prescription Opioid Use. Follow up: Private Physician; When: 5 - 6 days; Reason: Recheck today's complaints, Continuance of care, Re-evaluation by your physician. Problem is new. Symptoms have improved. jr8
[2018-10-02 02:48] VITALS: TEMP 97.9
[2018-10-02 02:53] VITALS: O2SAT 97
[2018-10-02 02:54] VITALS: BP 111/74
--- NOTE | 2018-10-02 08:56 | RAD REPORT ---
EXAM DESCRIPTION: RAD - Ankle Right 3 View - 10/02/2018 2:05 am CLINICAL HISTORY: Right ankle pain, twisting injury COMPARISON: December 2014 FINDINGS: No fracture, dislocation or periosteal reaction. No joint effusion seen. Mild narrowing of the tibiotalar joint space is present with marginal spurring. Moderate-sized plantar spur is seen. S purring changes are present along the dorsal margin of the tarsal bones. No air or foreign body in th e soft tissues. Patient has prominent baseline soft tissue swelling around the distal leg and ankle j oint. This is slightly worse than in 2015. IMPRESSION: Ankle and midfoot degenerative change as detailed. No fracture or acute finding.
--- NOTE | 2018-10-02 09:04 | RAD REPORT ---
EXAM DESCRIPTION: RAD - Foot Right 3 View - 10/02/2018 2:05 am CLINICAL HISTORY: Foot and ankle pain, twisting injury COMPARISON: September 2012 FINDINGS: No fracture, dislocation or periosteal reaction. No significant degenerative change at the IP or MTP joints. Moderate-sized plantar spur is present. No air or foreign body in the soft tissues. Soft tissue swelling is present as a baseline. This is sl ightly worse than 2013. It is very difficult to determine what is progressive soft tissue swelling co mpare due acute soft tissue swelling related to the injury. IMPRESSION: No fracture or acute bone finding. Significant soft tissue swelling. Baseline soft tissue swelling is so extensive that is difficult to determine would portion, if any, may be acute.
== END 2018-10-02 02:28 | disposition home or self-care (01) ==
LOC: ER 23:20
DX: S93.401A Sprain of unspecified ligament of right ankle, initial encounter (principal); Y93.83 Activity, rough housing and horseplay; J45.909 Unspecified asthma, uncomplicated; F32.9 Major depressive disorder, single episode, unspecified; E11.9 Type 2 diabetes mellitus without complications; K21.9 Gastro-esophageal reflux disease without esophagitis; I10 Essential (primary) hypertension; Z86.73 Personal history of transient ischemic attack (TIA), and cerebral infarction without residual deficits; Z88.8 Allergy status to other drugs, medicaments and biological substances
CPT/HCPCS: 99284

== ENCOUNTER 2019-02-11 11:25 | Emergency (ER) | payer OTHER ==
--- OUTSIDE RECORDS SUMMARY | 2019-02-11 11:28 | XMS REPORT | Clinical Summary ---
:[address] [facility] Address [address] [place] [address] Care Team Providers Name Role Phone Pcp, No Primary Care Provider Unavailable Allergies Active Allergy Reactions Severity Noted Date Comments Clopidogrel Other (See Comments) High 08/21/2018 Decreases heartrate Warfarin Nausea And Vomiting 06/07/2016 Medications Medication Sig Dispensed Refills Start Date End Date Status bifidobacterium Take by mouth 0 Active infantis (ALIGN) 4 mg daily. Cap methocarbamol (ROBAXIN) Take 750 mg by 0 Active 750 MG tablet mouth 4 (four) times daily as needed . venlafaxine (EFFEXOR) Take 75 mg by 0 Active 75 MG tablet mouth 2 (two) times daily. pantoprazole (PROTONIX) Take 40 mg by 0 Active 40 MG tablet mouth daily. magnesium oxide Take 400 mg by 0 Active (MAG-OX) 400 mg tablet mouth 2 (two) times daily. atorvastatin (LIPITOR) Take 1 tablet 30 tablet 0 04/14/2017 04/14/2018 40 MG tablet (40 mg total) by mouth nightly. amitriptyline (ELAVIL) Take 1 tablet 30 tablet 3 05/04/2017 05/04/2018 10 MG tablet (10 mg total) by mouth nightly. [...] Specialty Care Team Description 08/21/2018 Emergency Emergency Medicine Natanael Hernandez (Primary Dx); MD Tien Generalized headache; Obesity without serious comorbidity, unspecified classification, unspecified obesity type; Hypertension, unspecified type 08/21/2018 Travel after 02/10/2018 Family History Medical History Relation Name Comments [...] file Procedures Procedure Name Priority Date/Time Associated Diagnosis Comments XR CHEST 2 VIEWS STAT 08/21/2018 3:39 PM Results for this CDT procedure are in the results section. after 02/10/2018 Results XR chest 2 views (08/21/2018 3:39 PM CDT) Specimen Narrative Performed At FINAL REPORT [facility] Chest, PA and lateral. History: Cough. Comparison: 12/07/2017. Discussion: Mild cardiomegaly. The lungs are clear without evidence of consolidation or effusion.There are no acute osseous abnormalities. The soft tissues are unremarkable. IMPRESSION: No acute cardiopulmonary abnormality. Signed: Joseph Ford MD Report Verified Date/Time:08/21/2018 15:49:59 Reading Location: [facility] Mammo Reading Room Procedure Note Interface, External Ris In - 08/21/2018 3:52 PM CDT FINAL REPORT Chest, PA and lateral. History: Cough. Comparison: 12/07/2017. Discussion: Mild cardiomegaly. The lungs are clear without evidence of consolidation or effusion. There are no acute osseous abnormalities. The soft tissues are unremarkable. IMPRESSION: No acute cardiopulmonary abnormality. Signed: Joseph Ford MD Report Verified Date/Time: 08/21/2018 15:49:59 Reading Location: [facility] Mammo Reading Room Performing Organization Address City/State/Zipcode Phone Number GE RIS after 02/10/2018 Insurance Payer Benefit Plan / Group Subscriber ID Type Phone Address CARE IMPROVEMENT MEDICARE CARE IMPROVEMENT PLUS xxxxxxxxx [facility] [place] MEDICAID [place]ICAID [place] xxxxxxxxx Medicaid Advance Directives For more information, please contact:[address] [phone] Code Status Date Activated Date Inactivated Comments Full Code 05/02/2017 9:56 PM 05/04/2017 2:47 PM This code status was determined by: Patient Full Code 04/06/2017 11:35 PM 04/15/2017 8:31 PM This code status was determined by: Patient
--- OUTSIDE RECORDS SUMMARY | 2019-02-11 11:29 | XMS REPORT | Continuity of Care Document ---
:1975 Author Organization [facility] [place] Care Team Providers Name Role Phone [facility] [employer] [employer] Unavailable Unavailable Problems Problem Status Onset Classification Date Comments Source Date Reported GASTRO Active 09/05/19 [facility] Cerebral 06/23/19 01/02/2019 [facility] infarction, 19 [place] unspecified ACUTE Active 06/13/19 [facility] CEREBROVASCULAR 19 City ACCIDENT STROKE Active 06/13/19 [place] [id number] City 3RD LIBERTARIAN Active 12/08/[address] 3RD LIBERTARIAN FLIGHT Active 04/06/[address] Illness, 01/02/2019 [facility] unspecified City Acute respiratory 01/02/2019 [facility] failure with [facility] hypoxia Hemiplegia and 01/02/2019 [facility] 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 Body mass index 01/02/2019 [facility] (BMI) 60.0-69.9, [facility] adult Encephalopathy, 01/02/2019 [facility] unspecified City Essential 01/02/2019 [facility] (primary) [facility] hypertension Morbid (severe) 01/02/2019 [facility] obesity due to [facility] excess calories Type 2 diabetes 01/02/2019 [facility] mellitus with [facility] hyperglycemia Difficulty in 01/02/2019 [facility] walking, not [facility] elsewhere classified 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 [facility] Encounter for 01/02/2019 [facility] immunization [place] Migraine, 01/02/2019 [facility] unspecified, not [facility] intractable, without status migrainosus Status post 01/02/2019 [facility] administration of [facility] tPA (rtPA) in a different facility within the last 24 hours prior to admission to current facility skilled nursing 01/02/2019 [facility] (current) use of [facility] insulin Family history of 01/02/2019 [facility] diabetes mellitus [facility] Disease of Active Problem 01/02/2019 right leg [facility] cardiovascular Medical system (disorder) Center,[facility] Diabetes mellitus Active Problem 01/02/2019 [facility] (disorder) [facility] Heartburn Active Problem 01/02/2019 [facility] (finding) [facility] ILLNESS, Active [facility] UNSPECIFIED City CEREBRAL Active [facility] INFARCTION, City UNSPECIFIED Medications Medication Details Route Status Patient Ordering Order Source Instructions Provider Date Oxycodone 5 mg, 1 tab, No Longer [place] Route: PO, Drug Active 2018 Medical form: TAB, Q4H, Center Dosing Weight 164.5, kg, PRN Pain Score 4-6, Start date: 09/27/18 10:24:00 CDT, Duration: 30 day, Stop date: 10/27/18 10:23:00 CDTNotes: (Same as: Roxicodone) Promethazine 6.25 mg, 0.25 No Longer [facility] mL, Route: IVPB, Active 2018 Medical Drug form: INJ, Center ONCE, Dosing Weight 164.5, kg, PRN Nausea & Vomiting, Start date: 09/27/18 10:24:00 CDTNotes: Do not give IV push. (Same as: Phenergan) Hydralazine 10 mg, 0.5 mL, No Longer [facility] Route: IVP, Drug Active 2018 Medical form: INJ, Center Q20Min, Dosing Weight 164.5, kg, PRN Elevated BP, Start date: 09/27/18 10:24:00 CDT, Duration: 2 doses or times, Stop date: Limited # of timesNotes: (Same as: Apresoline) Push over 5 minutes Labetalol 10 mg, 2 mL, No Longer [facility] Route: IVP, Drug Active 2018 Medical form: INJ, Center Q5Min, Dosing Weight 164.5, kg, PRN Elevated BP, Start date: 09/27/18 10:24:00 CDT, Duration: 5 doses or times, Stop date: Limited # of times Ondansetron 4 mg, 2 mL, Inactive [place] Route: IVP, Drug 2018 Medical form: INJ, ONCE, Center Dosing Weight 164.5, kg, PRN Nausea & Vomiting, Start date: 09/27/18 10:24:00 CDTNotes: (Same as: Zofran) MEDICATION WASTE Product Size: 4 mg Product Wasted: ___ mg Naloxone 0.4 mg, 1 mL, No Longer [facility] Route: IVP, Drug Active 2019 Medical form: INJ, Center Q2MIN, Dosing Weight 164.5, kg, PRN Narcotic Reversal, Start date: 09/27/18 10:24:00 CDT, Duration: 8 doses or times, Stop date: Limited # of timesNotes: Same as Narcan Flumazenil 0.2 mg, 2 mL, No Longer [place] Route: IVP, Drug Active 2019 Medical form: INJ, PRN, Center Dosing Weight 164.5, kg, PRN Benzodiazepine Reversal, Initial dose, Start date: 09/27/18 10:24:00 CDT, Duration: 30 day, Stop date: 10/27/18 10:23:00 CDTNotes: (Same as: Romazicon) albuterol 90 2 puff, Active [facility] mcg/inh INHALATION, PRN, 2019 Medical inhalation 0 Refill(s) [place] aerosol Symbicort 2 puff, Active [facility] 160/4.5 INHALATION, 2019 Medical inhalation Daily, 0 [place] aerosol with Refill(s) adapter Dexilant PO, Daily, 0 Active [facility] Refill(s) 2019 [facility] topiramate 50 50 mg=1 tab, PO, Active [facility] MG Oral Tablet BID, # 60 tab, 0 2019 Medical [Topamax] Refill(s) Center Amlodipine PO, PRN, 0 Active [facility] Refill(s) 2019 [facility] Vitamin D3 =1 cap, PO, Active [facility] Every Other Day, 2019 Medical 0 Refill(s) Center pantoprazole 20 50 mg, PO, BID, Active [facility] MG Enteric 0 Refill(s) 2019 Medical Coated Tablet Center [Protonix] lisinopril 10 10 mg=1 tab, PO, Active [facility] mg oral tablet Daily, 0 2019 Medical Refill(s) [place] atorvastatin 40 40 mg=1 tab, PO, No Longer mg oral tablet Bedtime, # 30 Active 2019 [facility] tab, 0 [facility] Refill(s), Pharmacy: [facility] Aspirin 81 MG 81 mg=1 tab, PO, Active Chewable Tablet Daily, # 30 tab, 2019 [facility] 0 Refill(s), [facility] Pharmacy: [facility] Metformin 500 mg, PO, BID, Active hydrochloride # 60 tab, 0 2018 [facility] 500 MG Oral Refill(s), [facility] Tablet Pharmacy: [Glucophage] [facility] clopidogrel 75 75 mg=1 tab, PO, No Longer mg oral tablet Daily, # 30 tab, Active 2018 [facility] 0 Refill(s), [facility] Pharmacy: [facility] Sodium Chloride 25 mL, Route: Inactive 0.9% IV IV, Start date: 2018 [facility] 06/15/18 7:56:00 [facility] TIPPLE MECHANIC, Duration: 30 day, Stop date: 07/15/18 7:55:00 TIPPLE MECHANIC, PRN Line Flush BD Normal 10 mL, Route: Inactive Saline Flush IV, Drug Form: 2018 [facility] INJ, PRN, PRN [facility] Line Flush, Start date: 06/15/18 7:56:00 TIPPLE MECHANIC, Duration: 30 day, Stop date: 07/15/18 7:55:00 CSTNotes: (Same as: BD Posiflush) Lovenox 40 mg, 0.4 mL, No Longer Route: SUB-Q, Active 2018 [facility] Drug form: INJ, [facility] [id number], Dosing Weight 165.3, kg, Start date: 06/14/18 15:00:00 TIPPLE MECHANIC, Duration: 30 day, Stop date: 07/13/18 15:00:00 CSTNotes: (Same as: Lovenox) venlafaxine 75 mg, 1 tab, No Longer Route: PO, Drug Active 2018 [facility] form: TAB, City Daily, Dosing Weight 165.3, kg, Start date: 06/14/18 9:42:00 TIPPLE MECHANIC, Duration: 30 day, Stop date: 07/14/18 9:00:00 CSTNotes: (Same As: Effexor) Plavix 75 mg, 1 tab, No Longer Route: PO, Drug Active 2018 [facility] form: TAB, City Daily, Dosing Weight 165.3, kg, Priority: NOW, Start date: 06/14/18 9:41:00 TIPPLE MECHANIC, Duration: 30 day, Stop date: 07/14/18 9:00:00 CSTNotes: (Same As: Plavix) Aspirin 81 mg, Route: Inactive PO, Drug form: 2018 [facility] ECTAB, Daily, [facility] Dosing Weight 165.3, kg, Priority: NOW, Start date: 06/14/18 9:36:00 TIPPLE MECHANIC, Duration: 30 day, Stop date: 07/14/18 9:00:00 TIPPLE MECHANIC pantoprazole 40 mg, Route: No Longer IVP, Before Active 2018 [facility] Dinner, Dosing City Weight 150.091, kg, Start date: 06/13/18 16:30:00 TIPPLE MECHANIC, Duration: 30 day, Stop date: 07/12/18 16:30:00 CSTNotes: For IV push reconstitute with 10 ml 0.9% sodium chloride and push over 2 minutes. (Same as: Protonix) Fentanyl 100 microgram, 2 Inactive mL, Route: IV, 2018 [facility] Drug form: INJ, [facility] ONCALL, Dosing Weight 165.3, kg, Start date: 06/13/18 12:00:00 TIPPLE MECHANIC, Duration: 30 day, Stop date: 07/13/18 11:59:00 CSTNotes: (Same as: Sublimaze) Preservative free. chlorhexidine 15 mL, Route: Inactive gluconate 1.2 Swab Mouth, 2018 [facility] MG/ML Mouthwash Q12H, Drug form: [facility] LIQ, Start date: 06/13/18 9:00:00 TIPPLE MECHANIC, Duration: 30 day, Stop date: 07/12/18 21:00:00 CSTNotes: (Same As: Peridex) Famotidine 20 mg, 2 mL, Inactive Route: IVP, Drug 2018 [facility] form: INJ, Q12H, [facility] Dosing Weight 150.091, kg, Start date: 06/13/18 9:00:00 TIPPLE MECHANIC, Duration: 30 day, Stop date: 07/12/18 21:00:00 CSTNotes: (Same as: Pepcid) Can be dilute in 5-10cc NS IVP: Slow IV push over at least 2 minutes. Saline Flush 10 ml, Route: No Longer 0.9% IVP, Drug Form: Active 2018 [facility] INJ, Dosing City Weight 150.091, kg, Q12H, Start date: 06/13/18 9:00:00 TIPPLE MECHANIC, Duration: 30 day, Stop date: 07/12/18 21:00:00 CSTNotes: (Same as: BD Posiflush) Aspirin 81 MG 81 mg=1 tab, PO, No Longer Chewable Tablet Daily, tab, 0 Active 2018 [facility] Refill(s) [facility] Zofran 8 mg, 4 mL, No Longer Route: IV, Drug Active 2018 [facility] form: INJ, Q8H, [facility] Dosing Weight 165.3, kg, PRN Nausea, Start date: 06/13/18 6:17:00 TIPPLE MECHANIC, Duration: 30 day, Stop date: 07/13/18 6:16:00 CSTNotes: (Same as: Zofran) MEDICATION WASTE Product Size: 4 mg Product Wasted: ___ mg Promethazine 12.5 mg, 50 mL, No Longer Route: IVPB, Active 2018 [facility], Dosing Weight 165.3, kg, PRN Nausea & Vomiting, Start date: 06/13/18 6:17:00 TIPPLE MECHANIC, Duration: 30 day, Stop date: 07/13/18 6:16:00 TIPPLE MECHANIC ocular 1 appl, Route: Inactive lubricant BOTH EYES, Q6H, 2018 [facility] Drug form: SOLN, [facility] Start date: 06/13/18 6:00:00 TIPPLE MECHANIC, Duration: 30 day, Stop date: 07/13/18 0:00:00 CSTNotes: (Same as: Refresh Plus) Enoxaparin 40 mg, Route: Inactive SUB-Q, Drug 2018 [facility] form: INJ, [facility] [id number], Dosing Weight 150.091, kg, Start date: 06/13/18 5:00:00 TIPPLE MECHANIC, Duration: 30 day, Stop date: 07/12/18 5:00:00 TIPPLE MECHANIC chlorhexidine 15 mL, Route: Inactive gluconate 1.2 Swab Mouth, PRN, 2019 [facility] MG/ML Mouthwash Drug form: LIQ, [facility] PRN Other -See Comment, Start date: 06/13/18 4:34:00 TIPPLE MECHANIC, Duration: 30 day, Stop date: 07/13/18 4:33:00 CSTNotes: (Same As: Peridex) Insulin regular 5 unit, 0.05 mL, No Longer Route: SUB-Q, [address] Drug form: SOLN, aHmzah Sliding Scale, Dosing Weight 150.091, kg, PRN Blood Glucose Results, Start date: 06/13/18 4:30:00 TIPPLE MECHANIC, Duration: 30 day, Stop date: 07/13/18 4:29:00 CSTNotes: (Same as: Humulin R) Roll in palms of hands gently; Do not shake vigorously. "single patient use only" (Restricted to patients requiring a dose > 60 units) WASTE: F/P - Black; E - Panjiva Trash Bin Stable for 28 days at room temperature Expires in days from Da te Dextrose 50% 12.5 gm, 25 mL, No Longer Syringe Route: IVP, Drug [address] Form: INJ, [facility] Dosing Weight 150.091, kg, PRN, PRN Blood Glucose Results, Start date: 06/13/18 4:30:00 TIPPLE MECHANIC, Duration: 30 day, Stop date: 07/13/18 4:29:00 TIPPLE MECHANIC Glucagon 1 mg, Route: IM, No Longer Drug form: [address] PDR/INJ, PRN, [facility] Dosing Weight 150.091, kg, PRN Blood Glucose Results, Start date: 06/13/18 4:30:00 TIPPLE MECHANIC, Duration: 30 day, Stop date: 07/13/18 4:29:00 TIPPLE MECHANIC Lactated 1,000 mL, Rate: No Longer Ringers IV 125 ml/hr, Active 2018 [facility] 1,000 mL Infuse over: 8 City hr, Route: IV, Dosing Weight 150.091 kg, Total Volume: 1,000, Start date: 06/13/18 4:29:00 TIPPLE MECHANIC, Duration: 30 day, Stop date: 07/13/18 4:28:00 TIPPLE MECHANIC, 2.63, m2 Saline Flush 10 ml, Route: No Longer 0.9% IVP, Drug Form: [address] INJ, Dosing City Weight 150.091, kg, PRN, PRN Line Flush, Start date: 06/13/18 4:29:00 TIPPLE MECHANIC, Duration: 30 day, Stop date: 07/13/18 4:28:00 CSTNotes: (Same as: BD Posiflush) Allergies, Adverse Reactions, Alerts Substance Category Reaction Severity Reaction Status Date Comments Source type Reported warfarin Assertion Drug Active [facility] Plavix Assertion Drug Active [facility] Immunizations Immunization Date Site Status Last Updated Comments Source Given pneumococcal Left completed [facility] 23-valent 9 deltoid Medical vaccine Center,[facility] Results Order Name Results Value Reference Date Interpretation Comments Source Range CHEM PANEL eGFR 100 09/13 Result Comment: The Medical eGFR is Center calculated using the CKD-EPI formula. In most young, healthy individuals the eGFR will be >90 mL/min/1.73m2 . The eGFR declines with age. An eGFR of 60-89 may be normal in some populations, particularly the elderly, for whom the CKD-EPI formula has not been extensively validated. Use of the eGFR is not recommended in the following populations:< br/>
Aniyah viduals with unstable creatinine concentration s, including patients and those with serious co-morbid conditions.<b r/>
Patie nts with extremes in muscle mass or diet.

[...] collection date/time: 15:13:00. CHEM PANEL Globulin 3.8 2.7 - 4.2 09/13 Result Comment: [facility] Center date/time has been modified to: 13:47:00. Previous collection date/time: 15:13:00. CHEM PANEL A/G Ratio 1.0 0.7 - 1.6 09/13 Result Comment: [facility] Center date/time has been modified to: 13:47:00. Previous collection date/time: 15:13:00. CHEM PANEL Bili Total 0.3 0.2 - 1.3 04 Result Comment: [facility] Center date/time has been modified to: 13:47:00. Previous collection date/time: 15:13:00. CHEM PANEL AGAP 10.8 10.0 - 04 Result [facility] 20.0 Comment: Medical Collection Center date/time has been modified to: 13:47:00. Previous collection date/time: 15:13:00. CHEM PANEL B/C Ratio 23 6 - 25 04 Result Comment: [facility] Collection Center date/time has been modified to: 13:47:00. Previous collection date/time: 15:13:00. CHEM PANEL Potassium 3.8 3.5 - 5.1 09/13 Result [facility] Comment: Medical Collection Center date/time has been modified to: 13:47:00. Previous collection date/time: 15:13:00. CHEM PANEL Sodium Lvl 143 135 - 145 09/13 Result Comment: [facility] Center date/time has been modified to: 13:47:00. Previous collection date/time: 15:13:00. CHEM PANEL Chloride Lvl 108 95 - 109 09/13 Result Comment: [facility] date/time has been modified to: 13:47:00. Previous collection date/time: 15:13:00. CHEM PANEL AST 23 0 - 37 04 Result Comment: [facility] date/time has been modified to: 13:47:00. Previous collection date/time: 15:13:00. CHEM PANEL Alk Phos 88 39 - 136 09/13 Result Comment: [facility] date/time has been modified to: 13:47:00. Previous collection date/time: 15:13:00. CHEM PANEL ALT 21 0 - 65 09/13 Result Comment: [facility] date/time has been modified to: 13:47:00. Previous collection date/time: 15:13:00. CHEM PANEL CO2 28 24 - 32 09/13 Result [facility] Comment: Medical Collection Center date/time has been modified to: 13:47:00. Previous collection date/time: 15:13:00. CHEM PANEL Calcium Lvl 8.8 8.5 - 10.5 09/13 Result Comment: [facility] Collection Center date/time has been modified to: 13:47:00. Previous collection date/time: 15:13:00. CHEM PANEL Albumin Lvl 3.7 3.5 - 5.0 09/13 Result Comment: [facility] Collection Center date/time has been modified to: 13:47:00. Previous collection date/time: 15:13:00. CHEM PANEL Total 7.5 6.4 - 8.4 09/13 Result [facility] Comment: [facility] Collection Center date/time has been modified to: 13:47:00. Previous collection date/time: 15:13:00. CHEM PANEL Glucose Lvl 84 70 - 99 09/13 Result Comment: [facility] Center date/time has been modified to: 13:47:00. Previous collection date/time: 15:13:00. CHEM PANEL Creatinine 0.74 0.50 - 09/13 Result [facility] Lvl 1.40 Comment: Medical Collection Center date/time has been modified to: 13:47:00. Previous collection date/time: 15:13:00. CHEM PANEL BUN 17 7 - 22 09/13 Result [facility] Comment: [facility] Collection Center date/time has been modified to: 13:47:00. Previous collection date/time: 15:13:00. HEMATOLOGY Eosinophils 0.1 0.0 - 0.5 09/13 Result [facility] # Comment: Medical Collection Center date/time has been modified to: 13:47:00. Previous collection date/time: 15:13:00. HEMATOLOGY Monocytes 4.4 2.0 - 12.0 09/13 Result Comment: [facility] Center date/time has been modified to: 13:47:00. Previous collection date/time: 15:13:00. HEMATOLOGY Eosinophils 1.6 0.0 - 4.0 09/13 Result Comment: [facility] Center date/time has been modified to: 13:47:00. Previous collection date/time: 15:13:00. HEMATOLOGY Basophils 0.2 0.0 - 1.0 09/13 Result Comment: [facility] Center date/time has been modified to: 13:47:00. Previous collection date/time: 15:13:00. HEMATOLOGY Lymphocytes 23.0 20.0 - 09/13 Result [facility] 40.0 Comment: Medical Collection Center date/time has been modified to: 13:47:00. Previous collection date/time: 15:13:00. HEMATOLOGY Neutrophils 5.3 1.5 - 8.1 09/13 Result [facility] Comment: Medical Collection Center date/time has been modified to: 13:47:00. Previous collection date/time: 15:13:00. HEMATOLOGY Lymphocytes 1.7 1.0 - 5.5 09/13 Result [facility] Comment: [facility] Collection Center date/time has been modified to: 13:47:00. Previous collection date/time: 15:13:00. HEMATOLOGY Monocytes # 0.3 0.0 - 0.8 09/13 Result /2018 Comment: [facility] Collection Center date/time has been modified to: 13:47:00. Previous collection date/time: 15:13:00. HEMATOLOGY Segs 70.8 45.0 - 04/03 Result [facility] 75.0 Comment: Medical Collection Center date/time has been modified to: 13:47:00. Previous collection date/time: 15:13:00. HEMATOLOGY MCHC 32.7 32.0 - 04/03 Result [facility] 36.0 /2019 Comment: Medical Collection Center date/time has been modified to: 13:47:00. Previous collection date/time: 15:13:00. HEMATOLOGY Hct 39.9 36.0 - 04/03 Result [facility] 48.0 Comment: Medical Collection Center date/time has been modified to: 13:47:00. Previous collection date/time: 15:13:00. HEMATOLOGY MCV 87.0 80.0 - 09/13 Result [facility] 98.0 Comment: Medical Collection Center date/time has been modified to: 13:47:00. Previous collection date/time: 15:13:00. HEMATOLOGY MCH 28.5 27.0 - 09/13 Result [facility] 31.0 Comment: Medical Collection Center date/time has been modified to: 13:47:00. Previous collection date/time: 15:13:00. HEMATOLOGY RDW 14.8 11.5 - 09/13 Result [facility] 14.5 Comment: Medical Collection Center date/time has been modified to: 13:47:00. Previous collection date/time: 15:13:00. HEMATOLOGY Hgb 13.0 12.0 - 03 Result [facility] 16.0 Comment: Medical Collection Center date/time has been modified to: 13:47:00. Previous collection date/time: 15:13:00. HEMATOLOGY Platelet 197 133 - 450 09/13 Result [facility] Comment: Medical Collection Center date/time has been modified to: 13:47:00. Previous collection date/time: 15:13:00. HEMATOLOGY MPV 10.2 7.4 - 10.4 09/13 Result [facility] Comment: Medical Collection Center date/time has been modified to: 13:47:00. Previous collection date/time: 15:13:00. HEMATOLOGY RBC 4.59 4.20 - 09/13 Result [facility] 5.40 Comment: Medical Collection Center date/time has been modified to: 13:47:00. Previous collection date/time: 15:13:00. HEMATOLOGY WBC 7.4 3.7 - 10.4 09/13 Result [facility] Comment: Medical Collection Center date/time has been modified to: 13:47:00. Previous collection date/time: 15:13:00. SPECIAL Hgb A1C 6.2 <=5.6 % 09/13 Result [facility] CHEMISTRY Comment: Medical Collection Center date/time has been modified to: 13:47:00. Previous collection date/time: 15:13:00. ELECTROLYTE AGAP 11.8 10.0 - 06/14 S 20.0 [facility] ELECTROLYTE Chloride Lvl 109 95 - 109 06/14 S /2018 [facility] ELECTROLYTE Potassium 3.8 3.5 - 5.1 06/14 S Lvl /2018 [facility] ELECTROLYTE Sodium Lvl 145 135 - 145 06/14 S /2018 [facility] ELECTROLYTE Calcium Lvl 8.1 8.5 - 10.5 06/14 S /2018 [facility] ELECTROLYTE Creatinine 0.51 0.50 - 06/14 S Lvl 1.40 [facility] ELECTROLYTE eGFR 118 06/14 Result S Comment: The [facility] eGFR is City calculated using the CKD-EPI formula. In most young, healthy individuals the eGFR will be >90 mL/min/1.73m2 . The eGFR declines with age. An eGFR of 60-89 may be normal in some populations, particularly the elderly, for whom the CKD-EPI formula has not been extensively validated. Use of the eGFR is not recommended in the following populations:< br/>
Aniyah viduals with unstable creatinine concentration s, including patients and those with serious co-morbid conditions.<b r/>
Patie nts with extremes in muscle mass or diet.

The data above are obtained from the National Kid[employer] Disease Education Program (NKDEP) which additionally recommends that when the eGFR is used in patients with extremes of body mass index for purposes of drug dosing, the eGFR should be multiplied by the estimated BMI. ELECTROLYTE CO2 28 24 - 32 / [facility] ELECTROLYTE BUN 11 7 - 22 06/14 S [facility] ELECTROLYTE Glucose Lvl 104 70 - 99 06/14 S [facility] HEMATOLOGY Lymphocytes 1.1 1.0 - 5.5 / # /2018 [facility] HEMATOLOGY Neutrophils 5.5 1.5 - 8.1 06/14 # /2018 [facility] HEMATOLOGY Eosinophils 0.1 0.0 - 0.5 06/14 # /2018 [facility] HEMATOLOGY Monocytes # 0.3 0.0 - 0.8 06/14 [facility] HEMATOLOGY Lymphocytes 15.3 20.0 - / [facility] 40.0 /2018 [facility] HEMATOLOGY Segs 78.5 45.0 - 06/14 75.0 [facility] HEMATOLOGY Eosinophils 1.2 0.0 - 4.0 06/14 [facility] HEMATOLOGY Monocytes 4.3 2.0 - 12.0 06/14 [facility] HEMATOLOGY Basophils 0.7 0.0 - 1.0 06/14 [facility] HEMATOLOGY MCHC 32.5 32.0 - 06/14 [facility] 36.0 [facility] HEMATOLOGY RDW 15.1 11.5 - 06/14 14.5 /2018 [facility] HEMATOLOGY Platelet 188 133 - 450 06/14 [facility] [facility] HEMATOLOGY MPV 9.4 7.4 - 10.4 06/14 [facility] HEMATOLOGY RBC 3.87 4.20 - 06/14 5.40 /2018 [facility] HEMATOLOGY Hgb 11.0 12.0 - / 16.0 [facility] HEMATOLOGY MCV 87.6 80.0 - 06/14 98.0 [facility] HEMATOLOGY MCH 28.5 27.0 - 06/14 MH 31.0 [facility] HEMATOLOGY Hct 33.9 36.0 - 06/14 MH 48.0 [facility] HEMATOLOGY WBC 7.0 3.7 - 10.4 06/14 [facility] CHEM PANEL Alk Phos 87 39 - 136 06/13 [facility] CHEM PANEL eGFR 110 / [facility] Comment: The [facility] eGFR is City calculated using the CKD-EPI formula. In most young, healthy individuals the eGFR will be >90 mL/min/1.73m2 . The eGFR declines with age. An eGFR of 60-89 may be normal in some populations, particularly the elderly, for whom the CKD-EPI formula has not been extensively validated. Use of the eGFR is not recommended in the following populations:< br/>
Aniyah viduals with unstable creatinine concentration s, including patients and those with serious co-morbid conditions.<b r/>
Patie nts with extremes in muscle mass or diet.

The data above are obtained from the National Kidney Disease Education Program (NKDEP) which additionally recommends that when the eGFR is used in patients with extremes of body mass index for purposes of drug dosing, the eGFR should be multiplied by the estimated BMI. CHEM PANEL Chloride Lvl 107 95 - 109 06/13 [facility] CHEM PANEL Sodium Lvl 142 135 - 145 06/13 [facility] CHEM PANEL Potassium 4.0 3.5 - 5.1 06/13 Lvl /2018 [facility] CHEM PANEL Creatinine 0.63 0.50 - 06/13 MH Lvl 1.40 [facility] CHEM PANEL ALT 18 0 - 65 06/13 [facility] CHEM PANEL Bili Total 1.0 0.2 - 1.3 06/13 [facility] CHEM PANEL AST 29 0 - 37 06/13 [facility] CHEM PANEL Total 7.5 6.4 - 8.4 06/13 [facility] CHEM PANEL Albumin Lvl 3.2 3.5 - 5.0 06/13 [facility] CHEM PANEL CO2 25 24 - 32 06/13 [facility] CHEM PANEL BUN 13 7 - 22 06/13 [facility] CHEM PANEL Glucose Lvl 143 70 - 99 06/13 [facility] CHEM PANEL Calcium Lvl 8.3 8.5 - 10.5 06/13 [facility] CHEM PANEL B/C Ratio 21 6 - 25 06/13 [facility] CHEM PANEL Globulin 4.3 2.7 - 4.2 06/13 [facility] CHEM PANEL A/G Ratio 0.7 0.7 - 1.6 06/13 [facility] CHEM PANEL AGAP 14.0 10.0 - 06/13 MH 20.0 /2018 [facility] HEMATOLOGY Hgb 12.6 12.0 - 06/13 MH 16.0 /2018 [facility] HEMATOLOGY MCV 88.3 80.0 - 06/13 MH 98.0 /2018 [facility] HEMATOLOGY MCHC 32.8 32.0 - 06/13 MH 36.0 /2018 [facility] HEMATOLOGY MCH 29.0 27.0 - 06/13 MH 31.0 /2018 [facility] HEMATOLOGY RBC 4.34 4.20 - 06/13 MH 5.40 /2018 [facility] HEMATOLOGY WBC 9.2 3.7 - 10.4 06/13 /2018 [facility] HEMATOLOGY MPV 10.1 7.4 - 10.4 06/13 /2018 [facility] HEMATOLOGY Platelet 211 133 - 450 06/13 [facility] HEMATOLOGY RDW 15.2 11.5 - 06/13 14.5 /2018 [facility] HEMATOLOGY Hct 38.3 36.0 - 06/13 MH 48.0 /2018 [facility] HEMATOLOGY PTT 37.5 22.9 - 06/13 35.8 /2018 [facility] HEMATOLOGY PT 15.4 12.0 - 06/13 14.7 /2018 [facility] HEMATOLOGY INR 1.24 0.85 - 06/13 1.17 /2018 [facility] HEMATOLOGY Basophils 0.2 0.0 - 1.0 06/13 [facility] HEMATOLOGY Eosinophils 0.3 0.0 - 4.0 06/13 [facility] HEMATOLOGY Monocytes 3.7 2.0 - 12.0 06/13 /2018 [facility] HEMATOLOGY Lymphocytes 13.6 20.0 - 06/13 40.0 /2018 [facility] HEMATOLOGY Neutrophils 7.6 1.5 - 8.1 06/13 # /2019 [facility] HEMATOLOGY Lymphocytes 1.2 1.0 - 5.5 06/13 # /2019 [facility] HEMATOLOGY Monocytes # 0.3 0.0 - 0.8 06/13 [facility] HEMATOLOGY Segs 82.2 45.0 - 06/13 75.0 /2018 [facility] LIPIDS CHD Risk 2.88 3.90 - 06/13 5.80 /2018 [facility] LIPIDS VLDL 18 06/13 [facility] LIPIDS HDL 48 >=61 mg/dL 06/13 [facility] LIPIDS LDL 72 <=99 mg/dL 06/13 (Calculated) [facility] LIPIDS Trig 92 <=149 06/13 mg/dL /2018 [facility] LIPIDS Chol 138 <=199 06/13 mg/dL [facility] SPECIAL Hgb A1C 6.1 <=5.6 % 06/13 CHEMISTRY [facility] URINE AND UA Ketones Negative 06/13 STOOL [facility] URINE AND UA Bili Negative Negative 06/13 STOOL *NA* /2018 [facility] (06/13/18 5:52 AM) [facility] URINE AND UA Blood Moderate Negative 06/13 STOOL *ABN* [facility] (06/13/18 5:52 AM) [facility] URINE AND UA Nitrite Negative Negative 06/13 STOOL (06/13/18 5:52 AM) [facility] URINE AND UA <=1.0 0.1 - 1.0 06/13 STOOL Urobilinogen mg/dL [facility] URINE AND UA Sq Epi Occasional Few /LPF 06/13 STOOL /LPF /2018 [facility] URINE AND UA WBC 1 0 - 5 06/13 STOOL [facility] URINE AND UA Leuk Est Negative Negative 06/13 STOOL (06/13/18 5:52 AM) [facility] URINE AND UA Bacteria Occasional None Seen 06/13 STOOL /HPF /HPF /2018 [facility] URINE AND UA RBC 7 0 - 2 06/13 STOOL /2018 [facility] URINE AND UA pH 6.0 5.0 - 8.0 06/13 STOOL /2018 [facility] URINE AND UA Turbidity Clear Clear 06/13 STOOL (06/13/18 5:52 AM) [facility] URINE AND UA Color Straw 06/13 STOOL /2018 [facility] URINE AND UA Protein Negative Negative 06/13 STOOL (06/13/18 5:52 AM) [facility] URINE AND UA Glucose Negative Negative 06/13 STOOL *NA* [facility] (06/13/18 5:52 AM) [facility] URINE AND UA Spec Grav 1.019 <=1.030 06/13 STOOL [facility] Pathology Reports No Data Provided for This Section Diagnostic Reports Report Value Date Source Chest 1view DX Frontal chest radiograph 06/14/2018 [facility] INDICATION: Cough COMPARISON: 06/13/2018 FINDINGS: Heart/mediastinum: Cardiomegaly is unchanged LUNGS: Pulmonary congestion is improving. There is still focal atelectasis or fibrosis in the medial right upper lobe. Support lines/tubes: Endotracheal tube and NG tube been removed. Bone structures: no acute changes Upper Abdomen: unremarkable Impression: Improving pulmonary congestion Brain wo contrast MRI PATIENT NAME: GIOVANNY HARRISON 06/13/2018 [facility] : 1975; Age: 43 years y/o Female MR: [id number] STUDY: Brain wo contrast MRI 06/13/2018 9:40 [employer] ORDERING PHYSICIAN: Sakina Way DO CLINICAL INDICATION: - Unresponsive; COMPARISON: There are 07/02/[address] TECHNIQUE: Multiplanar noncontrast MRI of the brain is performed. FINDINGS: BRAIN PARENCHYMA: There is no hemorrhage, mass lesion, extra axial collection , cerebral edema, or mass effect. Diffusion sequences [...] IMPRESSION: Normal MRI brain without contrast Brain Stroke wo I reviewed the images and agree with the report 06/13/2018 [facility] contrast CT CT brain without contrast Clinical Indication: Absent of reflexes - unresponsive COMPARISON: None TECHNIQUE: Axial CT images of the brain are obtained from the skull base to the vertex. Axial, sagittal, and coronal images are interpreted. DLP: 1131 mGy-cm. This exam was performed according to our departmental dose- optimization protocol, which includes automated exposure control, adjustment of the mA and/or kV according to patient size an d/or use of iterative reconstruction technique. FINDINGS: Gyri/sulci: symmetric Ventricles: normal size Parenchyma: no masses, hemorrhage, shift or ischemia Orbits: normal Paranasal sinuses: clear Mastoids/temporal bones: unremarkable Calvarium: unremarkable NG tube and endotracheal tube are present. IMPRESSION: Unremarkable CT brain without contrast. Chest 1 v for Indication: Respiratory failure 06/13/2018 [facility] Placement DX COMPARISON: None Findings/impression: Portable chest radiograph demonstrates mild cardiomegaly. Central pulmonary congestion is identified with a poor inspiration. Endotracheal tube is in the mid trachea. NG tube is in the mid gastric region. Consultation Notes No Data Provided for This Section Discharge Summaries No Data Provided for This Section History and Physicals No Data Provided for This Section Vital Signs Vital Sign Value Date Comments Source Respitory Rate 17 09/27/2018 [facility] Systolic (mm Hg) 120 09/27/2018 [facility] Diastolic (mm Hg) 65 09/27/2018 [facility] Systolic (mm Hg) 107 09/27/2018 [facility] Diastolic (mm Hg) 59 09/27/2018 [facility] Respitory Rate 13 09/27/2018 [facility] Systolic (mm Hg) 104 09/27/2018 [facility] Diastolic (mm Hg) 57 09/27/2018 [facility] Respitory Rate 18 09/27/2018 [facility] Heart Rate 64 09/27/2018 [facility] BMI Calculated 64.24 09/13/2018 [facility] Weight 164.5 09/13/2018 [facility] Height 160.02 cm 09/13/2018 [facility] Heart Rate 82 09/13/2018 [facility] Systolic (mm Hg) 138 06/15/2018 [facility] Diastolic (mm Hg) 78 06/15/2018 [facility] Respitory Rate 16 06/15/2018 [facility] Respitory Rate 15 06/15/2018 [facility] Systolic (mm Hg) 147 06/15/2018 [facility] Diastolic (mm Hg) 91 06/15/2018 [facility] Respitory Rate 19 06/15/2018 [facility] Systolic (mm Hg) 121 06/15/2018 [facility] Diastolic (mm Hg) 73 06/15/2018 [facility] Temperature Oral (F) 98.4 F 06/15/2018 [facility] Temperature Oral (F) 97.7 F 06/14/2018 [facility] Height 160.02 cm 06/13/2018 [facility] Height 160.02 cm 06/13/2018 [facility] Height 160.02 cm 06/13/2018 [facility] BMI Calculated 64.55 06/13/2018 [facility] Weight 165.3 06/13/2018 [facility] Encounters Location Location Encounter Encounter Reason Attending ADM DC Status Source Details Type Number For Provider Date Date Visit [facility] Inpatient [id number] Antoine Vu 06/13 06/15 [facility] /2018 [facility] [id number] Michael 09/27 09/28 [facility] Surgery Praveen /2018 [facility] Procedures Procedure Code Date Perfomer Comments Source Arthroscopy of knee [id number] 01/13/2015 [facility] with medial and Medical lateral meniscectomy Center,[facility] Operation<sup>1</sup> [id number] 06/13/2013 right knee [facility] Cholecystectomy [id number] 06/13/2009 [facility] Hernia repair [id number] 06/13/2009 [facility] Hysterectomy [id number] 06/13/2008 [facility] Tubal ligation [id number] 06/13/1996 [facility] [id number] 06/13/19921996 [facility] section<sup>2</sup> [facility] Operation<sup>3</sup> [id number] 06/13/1980 mole removed [facility] on right leg [facility] Assessment and Plan Assessment and Plan Date Source Extracted from:Title: Neurology Progress Note 06/15/2018 [facility] Author: Sakina Way DO Date: 06/14/18 Impression and Plan 43yo F with multiple medical comorbidites now with increased left sided weakness, s/p IV tPA at approximately 0043 on 06/13/18. She has had improvement in her mentation but not in her motor strength. MRI is negative for stroke. Unclear etiology of symptoms. reports that prior to her decline, pt was complaining of not feeling well and was diaphoretic and pale. Suspect there could have been vasova gal vs cardiogenic vs metabolic derrangements which contributed to her symptoms. 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 She has had improvement in her mentation but not in her motor strength. Admit to neuro ICU MRI brain to further characterize deficit Will begin antiplatelet at 24H post IV tPA If evidence of new stroke, will obtain vascular imaging as well PT/OT once appropriate Statin SBP <185 per post tPA protocol Echo Tele EKG Wean to PS for potential extubation today CXR with poor inflation VAP bundle NPO for now Swallow eval and advance diet post extubation Dc otoole NS @ 75 for now APAP for T > 100.4 No atbx No heparin due to IV tPA administration SSI PRN TSH, FLP, A1c Time Contiuous Bedside Critical Care Time: 110 minutes The patient has an illness or injury that has acutely impaired one or more vital organ systems. There is a high probability of imminent or life threatening deterioration in the patients condition during this evaluation. This is the total time spent evaluating, coordinating, managing, and providing care to the critical patient, as well as time spent in documenting such activities. This time is exclusive of time required to perform procedures required during patient management. Extracted from:Title: History and Physical Author: Rah Mccann MD Date: 06/13/18 Acute CVA Acute hypoxic respiratory failure Risk of aspiration Type 2 diabetes mellitus with other complication without insulin Essential hypertension Morbid obesity History of CVA withspeech andleft-sided weakness. We will admit patient, consult neuro,monitor post TPA for signs of bleeding. Follow TPA guidelines for blood pressure. IV fluids and tube feeds No blood thinners for 24 hours post TPA,SCDs and Protonix At least 3 midnights Addendum by Rah Mccann MD on 06/13/2018 19:01 [employer] I did not personally accept this patient to [facility] as patient was accepted as part of a system wideinitiativefor neurology transfers. I was not on the conference call for patient acceptance, a nd I madeabsolutely no clinical decisions regarding this patientprior to their [facility]ar[facility] Plan of Care No Data Provided for This Section Social History Social History Date Source Social History TypeResponse 01/10/2015 [facility] Substance Abuse Use: None. Exercise Exercise duration: 20. Exercise frequency: 1-2 times/week. Self assessment: Poor condition. Exercise type: Walking. Alcohol Never Smoking Status Never smoker; Exposure to Tobacco Smoke None; Cigarette Smoking Last 365 Days No; Reg Smoking Cessation Counseling No entered on: 09/27/18 Social History TypeResponse 01/10/2015 [facility] Substance Abuse Use: None. Exercise Exercise duration: 20. Exercise frequency: 1-2 times/week. Self assessment: Poor condition. Exercise type: Walking. Alcohol Never Smoking Status Never smoker; Exposure to Tobacco Smoke None; Cigarette Smoking Last 365 Days No; Reg Smoking Cessation Counseling No entered on: 09/27/18 Family History No Data Provided for This Section Advance Directives No Data Provided for This Section Functional Status No Data Provided for This Section
--- OUTSIDE RECORDS SUMMARY | 2019-02-11 11:30 | XMS REPORT | Summary of Care ---
:1975 Author Organization [facility] Address [address] [place] [id number]- Encounter HQ Mukul(FIN) [id number] Date(s): 06/13/18 - 06/15/[address] [address]- Encounter Diagnosis Illness, unspecified (Final) - Cerebral infarction, unspecified (Final) - 06/22/18 Acute respiratory failure with hypoxia (Final) - Hemiplegia and hemiparesis following cerebral infarction affecting left non- dominant side (Final) - Body mass index (BMI) 60.0-69.9, adult (Final) - Encephalopathy, unspecified (Final) - Essential (primary) hypertension (Final) - Morbid (severe) obesity due to excess calories (Final) - Type 2 diabetes mellitus with hyperglycemia (Final) - Difficulty in walking, not elsewhere classified (Final) - Naranjo's palsy (Final) - Encounter for immunization (Final) - Migraine, unspecified, not intractable, without status migrainosus (Final) - Status post administration of tPA (rtPA) in a different facility within the last 24 hours prior to admission to current facility (Final) - 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) - Family history of diabetes mellitus (Final) - Discharge Disposition: Home or Self Care Attending Physician: Antoine Baltazar MD Admitting Physician: Antoine Baltazar MD Vital Signs Most recent to oldest [Reference 1 2 3 Range]: Height 160.02 cm 160.02 cm 160.02 cm (06/13/18 10:57 AM) (06/13/18 9:48 AM) (06/13/18 8:19 AM) Temperature Oral [96.4-99.1 DegF] 98.4 DegF 97.7 DegF (06/14/18 8:00 PM) (06/14/18 4:00 PM) Blood Pressure [90-140/60-90 138/78 mmHg 147/91 mmHg 121/73 mmHg mmHg] (06/15/18 12:00 PM) *HI* (06/15/18 6:00 AM) (06/15/18 8:00 AM) Respiratory Rate [14-20 BRMIN] 16 BRMIN 15 BRMIN 19 BRMIN (06/15/18 11:00 AM) (06/15/18 8:00 AM) (06/15/18 7:00 AM) Weight 165.3 kg (06/13/18 4:34 AM) Body Mass Index 64.55 m2 (06/13/18 4:34 AM) Problem List Condition Effective Dates Status Health Status Informant Circulation problem(Confirmed)1 Active Diabetes(Confirmed) Active Heartburn(Confirmed) Active 1right leg Allergies, Adverse Reactions, Alerts Substance Reaction Severity Status warfarin Active Plavix Active Medications aspirin 81 mg, Route: PO, Drug form: ECTAB, Daily, Dosing Weight 165.3, kg, Priority: NOW, Start date: 06/14/18 9:36:00 CREDIT PORTFOLIO ADVISOR, Duration: 30 day, Stop date: 07/14/18 9: 00:00 CREDIT PORTFOLIO ADVISOR Start Date: 06/14/18 Stop Date: 06/14/18 Status: Discontinuedaspirin 81 mg tablet, chewable 81 mg=1 tab, PO, Daily, # 30 tab, 0 Refill(s), Pharmacy: [facility] Start Date: 06/15/18 Status: Orderedaspirin 81 mg tablet, chewable 81 mg=1 tab, PO, Daily, tab, 0 Refill(s) Start Date: 06/13/18 Stop Date: 06/15/18 Status: Discontinuedatorvastatin 40 mg oral tablet 40 mg=1 tab, PO, Bedtime, # 30 tab, 0 Refill(s), [facility] Start Date: 06/15/18 Stop Date: 09/13/18 Status: CompletedBD Normal Saline Flush 10 mL, Route: IV, Drug Form: INJ, PRN, PRN Line Flush, Start date: 06/15/18 7:56 :00 CREDIT PORTFOLIO ADVISOR, Duration: 30 day, Stop date: 07/15/18 7:55:00 CREDIT PORTFOLIO ADVISOR Notes: (Same as: BD Posiflush) Start Date: 06/15/18 Stop Date: 06/15/18 Status: DiscontinuedBD Normal Saline Flush 5 mL, Route: IV, Drug Form: INJ, PRN, PRN Line Flush, Start date: 06/15/18 7:56: 00 CREDIT PORTFOLIO ADVISOR, Duration: 30day, Stop date: 07/15/18 7:55:00 CREDIT PORTFOLIO ADVISOR Notes: (Same as: BD Posiflush) Start Date: 06/15/18 Stop Date: 06/15/18 Status: Discontinuedchlorhexidine topical 0.12% liquid 15 mL, Route: Swab Mouth, Q12H, Drug form: LIQ, Start date: 06/13/18 9:00:00 CREDIT PORTFOLIO ADVISOR , Duration: 30 day, Stop date: 07/12/18 21:00:00 CREDIT PORTFOLIO ADVISOR Notes: (Same As: Peridex) Start Date: 06/13/18 Stop Date: 06/13/18 Status: Discontinuedchlorhexidine topical 0.12% liquid 15 mL, Route: Swab Mouth, PRN, Drug form: LIQ, PRN Other -See Comment, Start date: 06/13/18 4:34:00 CREDIT PORTFOLIO ADVISOR, Duration: 30 day, Stop date: 07/13/18 4:33:00 CREDIT PORTFOLIO ADVISOR Notes: (Same As: Peridex) Start Date: 06/13/18 Stop Date: 06/13/18 Status: Discontinuedclopidogrel 75 mg oral tablet 75 mg=1 tab, PO, Daily, # 30 tab, 0 Refill(s), Pharmacy: [facility] Start Date: 06/15/18 Stop Date: 09/13/18 Status: CompletedDextrose 50% Syringe 12.5 gm, 25 mL, Route: IVP, Drug Form: INJ, Dosing Weight 150.091, kg, PRN, PRN Blood Glucose Results, Start date: 06/13/18 4:30:00 CREDIT PORTFOLIO ADVISOR, Duration: 30 day, Stop date: 07/13/18 4:29:00 CREDIT PORTFOLIO ADVISOR Start Date: 06/13/18 Stop Date: 06/15/18 Status: DiscontinuedDextrose 50% Syringe 25 gm, 50 mL, Route: IVP, Drug Form: INJ, Dosing Weight 150.091, kg, PRN, PRN Blood Glucose Results,Start date: 06/13/18 4:30:00 CREDIT PORTFOLIO ADVISOR, Duration: 30 day, Stop date: 07/13/18 4:29:00 CREDIT PORTFOLIO ADVISOR Start Date: 06/13/18 Stop Date: 06/15/18 Status: Discontinuedenoxaparin 40 mg, Route: SUB-Q, Drug form: INJ, [id number], Dosing Weight 150.091, kg, Start date: 06/13/18 5:00:00 CREDIT PORTFOLIO ADVISOR, Duration: 30 day, Stop date: 07/12/18 5:00:00 CREDIT PORTFOLIO ADVISOR Start Date: 06/13/18 Stop Date: 06/13/18 Status: Deletedfamotidine 20 mg, 2 mL, Route: IVP, Drug form: INJ, Q12H, Dosing Weight 150.091, kg, Start date: 06/13/18 9:00:00 CREDIT PORTFOLIO ADVISOR, Duration: 30 day, Stop date: 07/12/18 21:00:00 CREDIT PORTFOLIO ADVISOR Notes: (Same as: Pepcid)Can be dilute in 5-10cc NS IVP: Slow IV push over at least 2 minutes. Start Date: 06/13/18 Stop Date: 06/13/18 Status: DiscontinuedfentaNYL 100 microgram, 2 mL, Route: IV, Drug form: INJ, ONCALL, Dosing Weight 165.3, kg , Start date: 06/13/18 12:00:00 CREDIT PORTFOLIO ADVISOR, Duration: 30 day, Stop date: 07/13/18 11:59 :00 CREDIT PORTFOLIO ADVISOR Notes: (Same as: Sublimaze) Preservative free. Start Date: 06/13/18 Stop Date: 06/13/18 Status: Discontinuedglucagon 1 mg, Route: IM, Drug form: PDR/INJ, PRN, Dosing Weight 150.091, kg, PRN Blood Glucose Results, Start date: 06/13/18 4:30:00 CREDIT PORTFOLIO ADVISOR, Duration: 30 day, Stop date: 07/13/18 4:29:00 CREDIT PORTFOLIO ADVISOR Start Date: 06/13/18 Stop Date: 06/15/18 Status: DiscontinuedGlucophage 500 mg oral tablet 500 mg, PO, BID, # 60 tab, 0 Refill(s), Pharmacy: [facility] Start Date: 06/15/18 Status: OrderedInsulin regular 5 unit, 0.05 mL, Route: SUB-Q, Drug form: SOLN, Sliding Scale, Dosing Weight 150.091, kg, PRN Blood Glucose Results, Start date: 06/13/18 4:30:00 CREDIT PORTFOLIO ADVISOR, Duration: 30 day, Stop date: 07/13/18 4:29:00 CREDIT PORTFOLIO ADVISOR Notes: (Same as: Humulin R) Roll in palms of hands gently; Do not shake vigorously. "single patientuse only"(Restricted to patients requiring a dose &gt ; 60 units)WASTE: F/P - Black; E - Municipal Trash Bin Stable for 28 days at room temperatureExpires in days from Date Start Date: 06/13/18 Stop Date: 06/15/18 Status: DiscontinuedInsulin regular 1 unit, 0.01 mL, Route: SUB-Q, Drug form: SOLN, Sliding Scale, Dosing Weight 150.091, kg, PRN Blood Glucose Results, Start date: 06/13/18 4:30:00 CREDIT PORTFOLIO ADVISOR, Duration: 30 day, Stop date: 07/13/18 4:29:00 CREDIT PORTFOLIO ADVISOR Notes: (Same as: Humulin R) Roll in palms of hands gently; Do not shake vigorously. "single patientuse only"(Restricted to patients requiring a dose &gt ; 60 units)WASTE: F/P - Black; E - Municipal Trash Bin Stable for 28 days at room temperatureExpires in days from Date Start Date: 06/13/18 Stop Date: 06/15/18 Status: DiscontinuedInsulin regular 3 unit, 0.03 mL, Route: SUB-Q, Drug form: SOLN, Sliding Scale, Dosing Weight 150.091, kg, PRN Blood Glucose Results, Start date: 06/13/18 4:30:00 CREDIT PORTFOLIO ADVISOR, Duration: 30 day, Stop date: 07/13/18 4:29:00 CREDIT PORTFOLIO ADVISOR Notes: (Same as: Humulin R) Roll in palms of hands gently; Do not shake vigorously. "single patientuse only"(Restricted to patients requiring a dose &gt ; 60 units)WASTE: F/P - Black; E - Municipal Trash Bin Stable for 28 days at room temperatureExpires in days from Date Start Date: 06/13/18 Stop Date: 06/15/18 Status: DiscontinuedInsulin regular 2 unit, 0.02 mL, Route: SUB-Q, Drug form: SOLN, Sliding Scale, Dosing Weight 150.091, kg, PRN Blood Glucose Results, Start date: 06/13/18 4:30:00 CREDIT PORTFOLIO ADVISOR, Duration: 30 day, Stop date: 07/13/18 4:29:00 CREDIT PORTFOLIO ADVISOR Notes: (Same as: Humulin R) Roll in palms of hands gently; Do not shake vigorously. "single patientuse only"(Restricted to patients requiring a dose &gt ; 60 units)WASTE: F/P - Black; E - Municipal Trash Bin Stable for 28 days at room temperatureExpires in days from Date Start Date: 06/13/18 Stop Date: 06/15/18 Status: DiscontinuedInsulin regular 4 unit, 0.04 mL, Route: SUB-Q, Drug form: SOLN, Sliding Scale, Dosing Weight 150.091, kg, PRN Blood Glucose Results, Start date: 06/13/18 4:30:00 CREDIT PORTFOLIO ADVISOR, Duration: 30 day, Stop date: 07/13/18 4:29:00 CREDIT PORTFOLIO ADVISOR Notes: (Same as: Humulin R) Roll in palms of hands gently; Do not shake vigorously. "single patientuse only"(Restricted to patients requiring a dose &gt ; 60 units)WASTE: F/P - Black; E - Municipal Trash Bin Stable for 28 days at room temperatureExpires in days from Date Start Date: 06/13/18 Stop Date: 06/15/18 Status: DiscontinuedLactated Ringers IV 1,000 mL 1,000 mL, Rate: 125 ml/hr, Infuse over: 8 hr, Route: IV, Dosing Weight 150.091 kg, Total Volume: 1,000, Start date: 06/13/18 4:29:00 CREDIT PORTFOLIO ADVISOR, Duration: 30 day, Stop date: 07/13/18 4:28:00 CREDIT PORTFOLIO ADVISOR, 2.63, m2 Start Date: 06/13/18 Stop Date: 06/14/18 Status: DiscontinuedLovenox 40 mg, 0.4 mL, Route: SUB-Q, Drug form: INJ, [id number], Dosing Weight 165.3, kg, Start date: 06/14/1914:00:00 CREDIT PORTFOLIO ADVISOR, Duration: 30 day, Stop date: 07/13/18 15:00: 00 CREDIT PORTFOLIO ADVISOR Notes: (Same as: Lovenox) Start Date: 06/14/18 Stop Date: 06/15/18 Status: Discontinuedocular lubricant 1 appl, Route: BOTH EYES, Q6H, Drug form: SOLN, Start date: 06/13/18 6:00:00 CREDIT PORTFOLIO ADVISOR , Duration: 30 day, Stop date: 07/13/18 0:00:00 CREDIT PORTFOLIO ADVISOR Notes: (Same as: Refresh Plus) Start Date: 06/13/18 Stop Date: 06/13/18 Status: Discontinuedpantoprazole + sodium chloride 10 mL 40 mg, Route: IVP, Before Dinner, Dosing Weight 150.091, kg, Start date: 16:30:00 CREDIT PORTFOLIO ADVISOR, Duration: 30 day, Stop date: 07/12/18 16:30:00 CREDIT PORTFOLIO ADVISOR Notes: For IV push reconstitute with 10 ml 0.9% sodium chloride and push over 2 minutes. (Same as: Protonix) Start Date: 06/13/18 Stop Date: 06/14/18 Status: DiscontinuedPlavix 75 mg, 1 tab, Route: PO, Drug form: TAB, Daily, Dosing Weight 165.3, kg, Priority: NOW, Start date: 06/14/18 9:41:00 CREDIT PORTFOLIO ADVISOR, Duration: 30 day, Stop date: 9:00:00 CREDIT PORTFOLIO ADVISOR Notes: (Same As: Plavix) Start Date: 06/14/18 Stop Date: 06/15/18 Status: Discontinuedpromethazine 12.5 mg, 50 mL, Route: IVPB, Drug form: SOLN, Q6H, Dosing Weight 165.3, kg, PRN Nausea & Vomiting, Start date: 06/13/18 6:17:00 CREDIT PORTFOLIO ADVISOR, Duration: 30 day, Stop date: 07/13/18 6:16:00 CREDIT PORTFOLIO ADVISOR Start Date: 06/13/18 Stop Date: 06/15/18 Status: DiscontinuedSaline Flush 0.9% 10 ml, Route: IVP, Drug Form: INJ, Dosing Weight 150.091, kg, PRN, PRN Line Flush, Start date: 06/13/18 4:29:00 CREDIT PORTFOLIO ADVISOR, Duration: 30 day, Stop date: 07/13/18 4 :28:00 CREDIT PORTFOLIO ADVISOR Notes: (Same as: BD Posiflush) Start Date: 06/13/18 Stop Date: 06/15/18 Status: DiscontinuedSaline Flush 0.9% 10 ml, Route: IVP, Drug Form: INJ, Dosing Weight 150.091, kg, Q12H, Start date: 06/13/18 9:00:00 CREDIT PORTFOLIO ADVISOR, Duration: 30 day, Stop date: 07/12/18 21:00:00 CREDIT PORTFOLIO ADVISOR Notes: (Same as: BD Posiflush) Start Date: 06/13/18 Stop Date: 06/15/18 Status: DiscontinuedSaline Flush 0.9% 10 ml, Route: IVP, Drug Form: INJ, Dosing Weight 150.091, kg, PRN, PRN Line Flush, Start date: 06/13/18 4:29:00 CREDIT PORTFOLIO ADVISOR, Duration: 30 day, Stop date: 07/13/18 4 :28:00 CREDIT PORTFOLIO ADVISOR Notes: (Same as: BD Posiflush) Start Date: 06/13/18 Stop Date: 06/13/18 Status: DiscontinuedSodium Chloride 0.9% IV 25 mL, Route: IV, Start date: 06/15/18 7:56:00 CREDIT PORTFOLIO ADVISOR, Duration: 30 day, Stop date : 07/15/18 7:55:00 CREDIT PORTFOLIO ADVISOR, PRN Line Flush Start Date: 06/15/18 Stop Date: 06/15/18 Status: Discontinuedvenlafaxine 75 mg, 1 tab, Route: PO, Drug form: TAB, Daily, Dosing Weight 165.3, kg, Start date: 06/14/18 9:42:00 CREDIT PORTFOLIO ADVISOR, Duration: 30 day, Stop date: 07/14/18 9:00:00 CREDIT PORTFOLIO ADVISOR Notes: (Same As: Effexor) Start Date: 06/14/18 Stop Date: 06/15/18 Status: DiscontinuedZofran + Sodium Chloride 0.9% IV 50 mL 8 mg, 4 mL, Route: IV, Drug form: INJ, Q8H, Dosing Weight 165.3, kg, PRN Nausea , Start date: 06/13/18 6:17:00 CREDIT PORTFOLIO ADVISOR, Duration: 30 day, Stop date: 07/13/18 6:16: 00 CREDIT PORTFOLIO ADVISOR Notes: (Same as: Kranthi) MEDICATION WASTE Product Size: 4 mgProduct Wasted: ___ mg Start Date: 06/13/18 Stop Date: 06/15/18 Status: Discontinued Results Most recent to oldest [Reference Range]: 1 2 Neutrophils # [1.5-8.1 K/CMM] 5.5 K/CMM 7.6 K/CMM (06/14/18 4:53 AM) (06/13/18 5:52 AM) Lymphocytes # [1.0-5.5 K/CMM] 1.1 K/CMM 1.2 K/CMM (06/14/18 4:53 AM) (06/13/18 5:52 AM) Monocytes # [0.0-0.8 K/CMM] 0.3 K/CMM 0.3 K/CMM (06/14/18 4:53 AM) (06/13/18 5:52 AM) Eosinophils # [0.0-0.5 K/CMM] 0.1 K/CMM (06/14/18 4:53 AM) eGFR 118 mL/min/1.73m2 1 110 mL/min/1.73m2 2 *NA* *NA* (06/14/18 4:53 AM) (06/13/18 5:52 AM) A/G Ratio [0.7-1.6] 0.7 (06/13/18 5:52 AM) Albumin Lvl [3.5-5.0 g/dL] 3.2 g/dL *LOW* (06/13/18 5:52 AM) Alk Phos [39-136 unit/L] 87 unit/L (06/13/18 5:52 AM) ALT [0-65 unit/L] 18 unit/L (06/13/18 5:52 AM) AGAP [10.0-20.0 mEq/L] 11.8 mEq/L 14.0 mEq/L (06/14/18 4:53 AM) (06/13/18 5:52 AM) AST [0-37 unit/L] 29 unit/L (06/13/18 5:52 AM) B/C Ratio [6-25] 21 (06/13/18 5:52 AM) Basophils [0.0-1.0 %] 0.7 % 0.2 % (06/14/18 4:53 AM) (06/13/18 5:52 AM) BUN [7-22 mg/dL] 11 mg/dL 13 mg/dL (06/14/18 4:53 AM) (06/13/18 5:52 AM) Calcium Lvl [8.5-10.5 mg/dL] 8.1 mg/dL 8.3 mg/dL *LOW* *LOW* (06/14/18 4:53 AM) (06/13/18 5:52 AM) CHD Risk [3.90-5.80] 2.88 *LOW* (06/13/18 5:52 AM) Chol [<=199 mg/dL] 138 mg/dL (06/13/18 5:52 AM) Chloride Lvl [95-109 mEq/L] 109 mEq/L 107 mEq/L (06/14/18 4:53 AM) (06/13/18 5:52 AM) CO2 [24-32 mEq/L] 28 mEq/L 25 mEq/L (06/14/18 4:53 AM) (06/13/18 5:52 AM) Creatinine Lvl [0.50-1.40 mg/dL] 0.51 mg/dL 0.63 mg/dL (06/14/18 4:53 AM) (06/13/18 5:52 AM) Eosinophils [0.0-4.0 %] 1.2 % 0.3 % (06/14/18 4:53 AM) (06/13/18 5:52 AM) Globulin [2.7-4.2 g/dL] 4.3 g/dL *HI* (06/13/18 5:52 AM) Glucose Lvl [70-99 mg/dL] 104 mg/dL 143 mg/dL *HI* *HI* (06/14/18 4:53 AM) (06/13/18 5:52 AM) Hct [36.0-48.0 %] 33.9 % 38.3 % *LOW* (06/13/18 5:52 AM) (06/14/18 4:53 AM) HDL [>=61 mg/dL] 48 mg/dL *LOW* (06/13/18 5:52 AM) Hgb [12.0-16.0 g/dL] 11.0 g/dL 12.6 g/dL *LOW* (06/13/18 5:52 AM) (06/14/18 4:53 AM) Hgb A1C [<=5.6 %] 6.1 % *HI* (06/13/18 5:52 AM) INR [0.85-1.17] 1.24 *HI* (06/13/18 5:52 AM) Potassium Lvl [3.5-5.1 mEq/L] 3.8 mEq/L 4.0 mEq/L (06/14/18 4:53 AM) (06/13/18 5:52 AM) LDL (Calculated) [<=99 mg/dL] 72 mg/dL (06/13/18 5:52 AM) Lymphocytes [20.0-40.0 %] 15.3 % 13.6 % *LOW* *LOW* (06/14/18 4:53 AM) (06/13/18 5:52 AM) MCH [27.0-31.0 pg] 28.5 pg 29.0 pg (06/14/18 4:53 AM) (06/13/18 5:52 AM) MCHC [32.0-36.0 g/dL] 32.5 g/dL 32.8 g/dL (06/14/18 4:53 AM) (06/13/18 5:52 AM) MCV [80.0-98.0 fL] 87.6 fL 88.3 fL (06/14/18 4:53 AM) (06/13/18 5:52 AM) Monocytes [2.0-12.0 %] 4.3 % 3.7 % (06/14/18 4:53 AM) (06/13/18 5:52 AM) MPV [7.4-10.4 fL] 9.4 fL 10.1 fL (06/14/18 4:53 AM) (06/13/18 5:52 AM) Sodium Lvl [135-145 mEq/L] 145 mEq/L 142 mEq/L (06/14/18 4:53 AM) (06/13/18 5:52 AM) Platelet [133-450 K/CMM] 188 K/CMM 211 K/CMM (06/14/18 4:53 AM) (06/13/18 5:52 AM) Segs [45.0-75.0 %] 78.5 % 82.2 % *HI* *HI* (06/14/18 4:53 AM) (06/13/18 5:52 AM) Total Protein [6.4-8.4 g/dL] 7.5 g/dL (06/13/18 5:52 AM) PT [12.0-14.7 seconds] 15.4 seconds *HI* (06/13/18 5:52 AM) PTT [22.9-35.8 seconds] 37.5 seconds *HI* (06/13/18 5:52 AM) RBC [4.20-5.40 M/CMM] 3.87 M/CMM 4.34 M/CMM *LOW* (06/13/18 5:52 AM) (06/14/18 4:53 AM) RDW [11.5-14.5 %] 15.1 % 15.2 % *HI* *HI* (06/14/18 4:53 AM) (06/13/18 5:52 AM) Bili Total [0.2-1.3 mg/dL] 1.0 mg/dL (06/13/18 5:52 AM) Trig [<=149 mg/dL] 92 mg/dL (06/13/18 5:52 AM) UA Bacteria [None Seen /HPF] Occasional /HPF *NA* (06/13/18 5:52 AM) UA Bili [Negative] Negative *NA* (06/13/18 5:52 AM) UA Blood [Negative] Moderate *ABN* (06/13/18 5:52 AM) UA Color Straw *NA* (06/13/18 5:52 AM) UA Glucose [Negative] Negative *NA* (06/13/18 5:52 AM) UA Ketones Negative *NA* (06/13/18 5:52 AM) UA Leuk Est [Negative] Negative (06/13/18 5:52 AM) UA Nitrite [Negative] Negative (06/13/18 5:52 AM) UA pH [5.0-8.0] 6.0 (06/13/18 5:52 AM) UA Protein [Negative] Negative (06/13/18 5:52 AM) UA RBC [0-2 /HPF] 7 /HPF *HI* (06/13/18 5:52 AM) UA Spec Grav [<=1.030] 1.019 (06/13/18 5:52 AM) UA Sq Epi [Few /LPF] Occasional /LPF *NA* (06/13/18 5:52 AM) UA Turbidity [Clear] Clear (06/13/18 5:52 AM) UA Urobilinogen [0.1-1.0 mg/dL] <=1.0 mg/dL *NA* (06/13/18 5:52 AM) UA WBC [0-5 /HPF] 1 /HPF (06/13/18 5:52 AM) WBC [3.7-10.4 K/CMM] 7.0 K/CMM 9.2 K/CMM (06/14/18 4:53 AM) (06/13/18 5:52 AM) VLDL 18 *NA* (06/13/18 5:52 AM) 1Result Comment: The eGFR is calculated using the CKD-EPI formula. In most young , healthy individualsthe eGFR will be >90 mL/min/1.73m2. [...] eGFR should be multiplied by the estimated BMI.2Result Comment: The eGFR is calculated using the [...] should be multiplied by the estimated BMI. Immunizations Given and Recorded Vaccine Date Status Refusal Reason pneumococcal 23-valent vaccine 06/15/18 Given Procedures Procedure Date Related Diagnosis Body Site Status Arthroscopy of knee with medial and 01/13/15 Completed lateral meniscectomy Operation1 06/13/13 Completed Cholecystectomy 06/13/09 Completed Hernia repair 06/13/09 Completed Hysterectomy 06/13/08 Completed Tubal ligation 06/13/96 Completed section2 06/13/92 Completed Operation3 06/13/80 Completed 1right knee [id number] removed on right leg Social History Social History Type Response Substance Abuse Use: None. Exercise Exercise duration: 20. Exercise frequency: 1-2 times/week. Self assessment: Poor condition. Exercise type: Walking. Alcohol Never Smoking Status Never smoker; Exposure to Tobacco Smoke None; Cigarette Smoking Last 365 Days No; Reg Smoking Cessation Counseling No entered on: 09/27/18 Assessment and Plan Extracted from: Title: Neurology Progress Note Author: Sakina Way DO Date: 06/14/18 Impression [...] stroke Begin plavix daily Con't statin PT/OT SEPARATOR OPERATOR eval and advance diet as appropriate Defer cardiac work up to primary team No otoole No IVF Lovenox SQ for VTE ppx Time 45 mins Extracted from: Title: Neurology Consultation Author: Sakina Way DO Date: [...] imminent or life threatening deterioration in the patient s condition during this evaluation. This is the total time spent evaluating, coordinating, managing, and providing care to the critical patient, as well as time spent in documenting such activities. This time is exclusive of time required to perform procedures required during patient management. Extracted from: Title: History and Physical Author: Rah Mccann MD [...] by Rah Mccann MD on 06/13/2018 19:01 CREDIT PORTFOLIO ADVISOR I did not personally accept this patient to [facility] as patient was accepted as part of a system wideinitiativefor neurology transfers. I was not on the conference call for patient accepta nce, and I madeabsolutely no clinical decisions regarding this patient [facility]
--- OUTSIDE RECORDS SUMMARY | 2019-02-11 11:31 | XMS REPORT ---
:1975 [facility] [address] [place] [address] Care Team Providers Name Role Phone MAYRA CHEUNG YIMI Unavailable Unavailable MICKEY RESTREPO Unavailable Unavailable Problems This patient has no known problems. Allergies, Adverse Reactions, Alerts This patient has no known allergies or adverse reactions. Medications This patient has no known medications. Encounters Start End Encounter Admission Attending Care Care Encounter Date/Time Date/Time Type Type Clinicians Facility Department ID 2018-09-27 2018-09-27 Outpatient [facility] [id number] 07:11:00 07:11:00 Results Test Description Test Time Test Comments Text Results Atomic Results Result Comments RAD, CHEST, 2 2018-08-21 15:49:00 Reason for FINAL REPORT PATIENT VIEWS exam:->coughShould this be ID: [id number] Chest, performed at the PA and lateral. bedside?->No History: Cough. Comparison: 12/07/2017. Discussion: Mild cardiomegaly. The lungs are clear without evidence of consolidation or effusion. There are no acute osseous abnormalities. The soft tissues are unremarkable. IMPRESSION: No acute cardiopulmonary abnormality. Signed: Joseph Vang MDReport Verified Date/Time: 08/21/2018 15:49:59 Reading Location: [facility] Reading Room E CULTURE 2017-12-10 13:30:00 Test Item Value Reference Range Comments CULTURE (BEAKER) (test ytzt=6386) No growth POCT-GLUCOSE [id number] 08:21:00 Test Item Value Reference Range Comments POC-GLUCOSE METER (BEAKER) 99 mg/dL 70-110 TESTED AT [address] (test ocse=1774) [facility] [address] POCT-GLUCOSE [id number] 06:14:00 Test Item Value Reference Range Comments POC-GLUCOSE METER (BEAKER) 105 mg/dL 70-110 TESTED AT [facility] [address] (test hnna=1170) [facility] [address] BASIC METABOLIC [id number] 05:56:00 Test Item Value Reference Range Comments SODIUM (BEAKER) (test 140 meq/L 136-145 coiw=528) POTASSIUM (BEAKER) (test 3.9 meq/L 3.5-5.1 xfje=439) CHLORIDE (BEAKER) (test 105 meq/L 98-107 rteu=614) CO2 (BEAKER) (test 28 meq/L 22-29 uscr=815) BLOOD UREA NITROGEN 11 mg/dL 7-21 (BEAKER) (test jsdi=253) CREATININE (BEAKER) (test 0.62 mg/dL 0.57-1.25 uutt=078) GLUCOSE RANDOM (BEAKER) 107 mg/dL 70-105 (test fiyq=918) CALCIUM (BEAKER) (test 8.8 mg/dL 8.4-10.2 nhka=494) EGFR (BEAKER) (test 106 mL/min/1.73 sq m ESTIMATED GFR IS NOT jjlr=8616) ACCURATE CREATININE CLEARANCE IN PREDICTING GLOMERULAR FILTRATION RATE. ESTIMATED GFR IS NOT APPLICABLE FOR DIALYSIS PATIENTS. CBC W/PLT COUNT & AUTO [id number] 05:15:00 Test Item Value Reference Range Comments WHITE BLOOD CELL COUNT (BEAKER) (test ychi=641) 6.7 K/ L 3.5-10.5 RED BLOOD CELL COUNT (BEAKER) (test bmfi=766) 4.08 M/ L 3.93-5.22 HEMOGLOBIN (BEAKER) (test vrzc=920) 11.4 GM/DL 11.2-15.7 HEMATOCRIT (BEAKER) (test xcqa=633) 37.6 % 34.1-44.9 MEAN CORPUSCULAR VOLUME (BEAKER) (test wdzq=776) 92.2 fL 79.4-94.8 MEAN CORPUSCULAR HEMOGLOBIN (BEAKER) (test 27.9 pg 25.6-32.2 pypt=969) MEAN CORPUSCULAR HEMOGLOBIN CONC (BEAKER) (test 30.3 GM/DL 32.2-35.5 oijb=175) RED CELL DISTRIBUTION WIDTH (BEAKER) (test 14.6 % 11.7-14.4 jxcq=453) PLATELET COUNT (BEAKER) (test okli=393) 192 K/CU MM 150-450 MEAN PLATELET VOLUME (BEAKER) (test ltyt=870) 11.9 fL 9.4-12.3 NUCLEATED RED BLOOD CELLS (BEAKER) (test 0 /100 WBC 0-0 iyyu=775) NEUTROPHILS RELATIVE PERCENT (BEAKER) (test 69 % vyex=381) LYMPHOCYTES RELATIVE PERCENT (BEAKER) (test 25 % hypg=962) MONOCYTES RELATIVE PERCENT (BEAKER) (test 5 % kagz=159) EOSINOPHILS RELATIVE PERCENT (BEAKER) (test 2 % wplf=748) BASOPHILS RELATIVE PERCENT (BEAKER) (test 0 % ponn=367) NEUTROPHILS ABSOLUTE COUNT (BEAKER) (test 4.59 K/ L 1.56-6.13 jlsl=465) LYMPHOCYTES ABSOLUTE COUNT (BEAKER) (test 1.65 K/ L 1.18-3.74 knae=162) MONOCYTES ABSOLUTE COUNT (BEAKER) (test 0.30 K/ L 0.24-0.36 uiee=565) EOSINOPHILS ABSOLUTE COUNT (BEAKER) (test 0.11 K/ L 0.04-0.36 xdru=357) BASOPHILS ABSOLUTE COUNT (BEAKER) (test 0.01 K/ L 0.01-0.08 cryg=655) IMMATURE GRANULOCYTES-RELATIVE PERCENT (BEAKER) 0 % 0-1 (test nwdw=2045) POCT-GLUCOSE [id number] 00:23:00 Test Item Value Reference Range Comments POC-GLUCOSE METER (BEAKER) 111 mg/dL 70-110 TESTED AT [address] (test hukf=2988) [facility] [address] MR, MRA, BRAIN, WITHOUT [id number] 20:13:00Reason for exam:-> Ischemic Stroke EvaluationFINAL REPORT MRA Head CLINICAL HISTORY: Stroke TECHNIQUE: MRA of the head utilizing 3-D vdgv-vi-fekumq technique, with 3-D reconstructions. COMPARISON: None FINDINGS: There is noevidence of intracranial aneurysm, focal stenosis, or major branch vessel occlusion. There is a origin of the right posterior cerebral artery. IMPRESSION: No evidence for a major nez perce of Willisproximal branch vessel occlusion. MRA Neck CLINICAL HISTORY: Stroke TECHNIQUE: MRA of the neck utilizing 2-D and 3-D ukaf-pc-vbucdf technique, with 3-D reconstructions. COMPARISON: None FINDINGS: Thecarotid arteries in the neck are patent including their bifurcations. There is antegrade flow in the vertebral arteries in the neck. IMPRESSION: No evidence of hemodynamically significant stenosis in the cervical carotid or vertebral arteries by NASCET criteria. Signed: Madeleine Macias Verified Date/Time: 12/08/2017 20:13:50 Reading Location: [facility] Radiology Reading Room MR, MRA, NECK, WITHOUT IV [id number] 20:13: 00Reason for exam:->Ischemic Stroke EvaluationFINAL REPORT MRA Head CLINICAL HISTORY: Stroke TECHNIQUE: MRA of the head utilizing 3-D ndxu-aj-qgjqit technique, with 3-D reconstructions. COMPARISON: None FINDINGS: There is noevidence of intracranial aneurysm, focal stenosis, or major branch vessel occlusion. There is a origin of the right posterior cerebral artery. IMPRESSION: No evidence for a major nez perce of Willisproximal branch vessel occlusion. MRA Neck CLINICAL HISTORY: Stroke TECHNIQUE: MRA of the neck utilizing 2-D and 3-D lcbf-uf-muaefx technique, with 3-D reconstructions. COMPARISON: None FINDINGS: Thecarotid arteries in the neck are patent including their bifurcations. There is antegrade flow in the vertebral arteries in the neck. IMPRESSION: No evidence of hemodynamically significant stenosis in the cervical carotid or vertebral arteries by NASCET criteria. Signed: Madeleine Macias Verified Date/Time: 12/08/2017 20:13: 50 Reading Location: [facility]iology Reading Room MR, BRAIN, WITHOUT [id number] 20:02:00Reason for exam:->StrokeWhat is the patient's sedation [...] Verified Date/ Time: 12/08/2017 20:02:46 Reading Location: [facility]iology Reading Room 08:02 PMPOCT-GLUCOSE [id number] 15:23:00 Test Item Value Reference Range Comments POC-GLUCOSE METER (BEAKER) 106 mg/dL 70-110 TESTED AT [address] (test gunq=9652) [place] [address] HEMOGLOBIN [id number] 11:57:00 Test Item Value Reference Range Comments HEMOGLOBIN A1C (BEAKER) (test cngo=290) 6.6 % 4.3-6.1 FastingTROPONIN [id number] 09:50:00 Test Item Value Reference Range Comments TROPONIN I (BEAKER) (test atpe=367) < ng/mL 0.00-0.03 Troponin I (TnI) levels [...] acidosis, acute neurological disease, and persistent tachyarrhythmia.POCT-GLUCOSE [id number] 06:23:00 Test Item Value Reference Range Comments POC-GLUCOSE METER (BEAKER) 110 mg/dL 70-110 TESTED AT [address] (test gypa=7568) [place] [address] POCT-GLUCOSE [id number] 06:15:00 Test Item Value Reference Range Comments POC-GLUCOSE METER (BEAKER) 149 mg/dL 70-110 TESTED AT [address] (test tvcc=8198) [place] [address] VITAMIN B12 AND [id number] 05:50:00 Test Item Value Reference Range Comments VITAMIN B12 (BEAKER) (test tpzd=083) 688 pg/mL 213-816 FOLATE (BEAKER) (test shhv=591) 12.1 ng/mL >=7.0 TSH/FREE T4 IF [id number] 05:29:00 Test Item Value Reference Range Comments THYROID STIMULATING HORMONE (BEAKER) (test 0.66 uIU/mL 0.35-4.94 ukxk=149) BASIC METABOLIC [id number] 05:11:00 Test Item Value Reference Range Comments SODIUM (BEAKER) (test 140 meq/L 136-145 jnpt=934) POTASSIUM (BEAKER) (test 4.3 meq/L 3.5-5.1 Specimen slightly lzqu=941) hemolyzed CHLORIDE (BEAKER) (test 105 meq/L 98-107 veke=592) CO2 (BEAKER) (test 27 meq/L 22-29 ofqk=080) BLOOD UREA NITROGEN 8 mg/dL 7-21 (BEAKER) (test uvgk=376) CREATININE (BEAKER) (test 0.67 mg/dL 0.57-1.25 Specimen slightly znpq=727) hemolyzed GLUCOSE RANDOM (BEAKER) 136 mg/dL 70-105 (test xcdo=444) CALCIUM (BEAKER) (test 8.7 mg/dL 8.4-10.2 gthc=185) EGFR (BEAKER) (test 97 mL/min/1.73 sq m ESTIMATED GFR IS NOT exzv=2887) ACCURATE CREATININE CLEARANCE IN PREDICTING GLOMERULAR FILTRATION RATE. ESTIMATED GFR IS NOT APPLICABLE FOR DIALYSIS PATIENTS. FastingLIPID [id number] 05:11:00 Test Item Value Reference Range Comments TRIGLYCERIDES (BEAKER) (test 83 mg/dL Specimen slightly hemolyzed fyme=461) CHOLESTEROL (BEAKER) (test 140 mg/dL Specimen slightly hemolyzed rbrn=460) HDL CHOLESTEROL (BEAKER) (test 38 mg/dL zxlw=311) LDL CHOLESTEROL CALCULATED 85 mg/dL (BEAKER) (test lvnp=159) Triglyceride Reference Range: Low Risk <150 Borderline 150- 199 High Risk 200-499 Very High Risk >=500Cholesterol Reference Range: Low Risk <200 Borderline 200-239 High Risk > 240HDL Cholesterol Reference Range: Low Risk >=60 High Risk <40LDL Cholesterol Reference Range: Optimal <100 Near Optimal 100-129 Borderline 130-159 High 160-189 Very High >=190 FastingRAPID DRUG SCREEN, [id number] 04:34:00 Test Item Value Reference Range Comments BARBITURATE URINE (BEAKER) (test gcsu=416) Negative Negative BENZODIAZEPINE SCREEN URINE (BEAKER) (test Negative Negative olks=361) COCAINE (METAB.) SCREEN (BEAKER) (test nqzb=9794) Negative Negative METHADONE SCREEN (BEAKER) (test lrdk=9433) Negative Negative OPIATE SCREEN URINE (BEAKER) (test hees=633) Negative Negative CANNABINOID SCREEN URINE (BEAKER) (test bhwe=880) Negative Negative AMPH/METHAMPH SCREEN (BEAKER) (test tnvg=6888) Negative Negative PHENCYCLIDINE SCREEN URINE (BEAKER) (test eagx=085) Negative Negative OXYCODONE SCREEN URINE (BEAKER) (test aomp=9416) Negative Negative DRUG CUTOFF CONC.Cocaine 300 ng/mL Cannabinoid 50 ng/mL Benzodiazepine 200 ng/mLBarbiturate 200 ng/ mLPhencyclidine 25 ng/mLOpiate 300 ng/mLMethadone 300 ng/mLAmphetamine/ 1000 ng/mL MethamphetamineOxycodone 300 ng/mLThis assay provides an unconfirmed qualitative test result for the clinical management of patients in emergency situations. Chain of custody not maintained. Some kqli-iqa-tfpbsbf medications, as well as adulterants, may cause inaccurate results. Clinical correlation should be applied. A more comprehensive drug screen or confirmation of a detected drug may be performed upon request.URINALYSIS W/ [id number] 04:09:00 Test Item Value Reference Range Comments COLOR (BEAKER) (test ohfu=201) Yellow CLARITY (BEAKER) (test baxe=946) Clear SPECIFIC GRAVITY UA (BEAKER) (test 1.039 1.001-1.035 gwgg=669) PH UA (BEAKER) (test yrib=947) 5.5 5.0-8.0 PROTEIN UA (BEAKER) (test 10 mg/dL Negative shmx=866) GLUCOSE UA (BEAKER) (test Negative Negative whkv=224) KETONES UA (BEAKER) (test Negative Negative uiel=496) BILIRUBIN UA (BEAKER) (test Negative Negative lbzx=207) BLOOD UA (BEAKER) (test cguc=419) Small Negative NITRITE UA (BEAKER) (test Negative Negative hbza=742) LEUKOCYTE ESTERASE UA (BEAKER) Negative Negative (test ngde=109) UROBILINOGEN UA (BEAKER) (test 0.2 mg/dL 0.2-1.0 nctd=806) RBC UA (BEAKER) (test uhjf=247) 1 /HPF WBC UA (BEAKER) (test tvsx=201) < /HPF MUCUS (BEAKER) (test zenz=2615) Occasional SQUAMOUS EPITHELIAL (BEAKER) (test < /HPF dvfl=762) CRYSTALS, URINE (BEAKER) (test Rare kmyw=0403) SOURCE(BEAKER) (test cwhh=2971) Urine, Sterile Collection CBC W/PLT COUNT & AUTO [id number] 03:54:00 Test Item Value Reference Range Comments WHITE BLOOD CELL COUNT (BEAKER) (test pbae=405) 7.2 K/ L 3.5-10.5 RED BLOOD CELL COUNT (BEAKER) (test jxqb=421) 4.10 M/ L 3.93-5.22 HEMOGLOBIN (BEAKER) (test vgpi=687) 11.6 GM/DL 11.2-15.7 HEMATOCRIT (BEAKER) (test sjmc=742) 37.5 % 34.1-44.9 MEAN CORPUSCULAR VOLUME (BEAKER) (test nict=888) 91.5 fL 79.4-94.8 MEAN CORPUSCULAR HEMOGLOBIN (BEAKER) (test 28.3 pg 25.6-32.2 xhad=066) MEAN CORPUSCULAR HEMOGLOBIN CONC (BEAKER) (test 30.9 GM/DL 32.2-35.5 joxm=895) RED CELL DISTRIBUTION WIDTH (BEAKER) (test 14.6 % 11.7-14.4 xbqh=538) PLATELET COUNT (BEAKER) (test wirr=842) 194 K/CU MM 150-450 MEAN PLATELET VOLUME (BEAKER) (test byfv=284) 11.7 fL 9.4-12.3 NUCLEATED RED BLOOD CELLS (BEAKER) (test 0 /100 WBC 0-0 aagk=708) NEUTROPHILS RELATIVE PERCENT (BEAKER) (test 73 % vicp=206) LYMPHOCYTES RELATIVE PERCENT (BEAKER) (test 21 % qalp=776) MONOCYTES RELATIVE PERCENT (BEAKER) (test 4 % dqhw=896) EOSINOPHILS RELATIVE PERCENT (BEAKER) (test 2 % jkrp=439) BASOPHILS RELATIVE PERCENT (BEAKER) (test 0 % qarl=101) NEUTROPHILS ABSOLUTE COUNT (BEAKER) (test 5.22 K/ L 1.56-6.13 dikd=413) LYMPHOCYTES ABSOLUTE COUNT (BEAKER) (test 1.47 K/ L 1.18-3.74 znub=988) MONOCYTES ABSOLUTE COUNT (BEAKER) (test 0.31 K/ L 0.24-0.36 wqqg=307) EOSINOPHILS ABSOLUTE COUNT (BEAKER) (test 0.13 K/ L 0.04-0.36 ftuj=780) BASOPHILS ABSOLUTE COUNT (BEAKER) (test 0.01 K/ L 0.01-0.08 ogsm=480) IMMATURE GRANULOCYTES-RELATIVE PERCENT (BEAKER) 0 % 0-1 (test ajlv=5997) TROPONIN [id number] 23:56:00 Test Item Value Reference Range Comments TROPONIN I (BEAKER) (test qjkn=056) < ng/mL 0.00-0.03 Troponin I (TnI) levels [...] acute neurological disease, and persistent tachyarrhythmia.HEPATIC FUNCTION [id number] 23:49: 00 Test Item Value Reference Range Comments TOTAL PROTEIN (BEAKER) (test geuc=864) 6.8 gm/dL 6.0-8.3 ALBUMIN (BEAKER) (test zuto=4679) 3.7 g/dL 3.5-5.0 BILIRUBIN TOTAL (BEAKER) (test ubdz=240) 0.4 mg/dL 0.2-1.2 BILIRUBIN DIRECT (BEAKER) (test jzvq=463) 0.2 mg/dL 0.1-0.5 ALKALINE PHOSPHATASE (BEAKER) (test nzml=222) 75 U/L 40-150 AST (SGOT) (BEAKER) (test sdjr=443) 30 U/L 5-34 ALT (SGPT) (BEAKER) (test uxpl=566) 17 U/L 6-55 PROTHROMBIN [id number] 23:40:00 Test Item Value Reference Range Comments PROTIME (BEAKER) (test eqhq=766) 15.8 seconds 11.7-14.7 INR (BEAKER) (test azxv=125) 1.3 <=5.9 RECOMMENDED COUMADIN/WARFARIN INR THERAPY RANGESSTANDARD DOSE: 2.0 - 3.0 Includes: PROPHYLAXIS forvenous thrombosis, systemic embolization; TREATMENT for venous thrombosis and/or pulmonary embolus.HIGH RISK: Target INR is 2.5-3.5 for patients with mechanical heart valves.CBC W/PLT COUNT & AUTO [id number] 23:27:00 Test Item Value Reference Range Comments WHITE BLOOD CELL COUNT (BEAKER) (test ohig=634) 8.2 K/ L 3.5-10.5 RED BLOOD CELL COUNT (BEAKER) (test mwwx=318) 4.18 M/ L 3.93-5.22 HEMOGLOBIN (BEAKER) (test gjug=327) 11.9 GM/DL 11.2-15.7 HEMATOCRIT (BEAKER) (test ewpk=158) 38.2 % 34.1-44.9 MEAN CORPUSCULAR VOLUME (BEAKER) (test cdlm=534) 91.4 fL 79.4-94.8 MEAN CORPUSCULAR HEMOGLOBIN (BEAKER) (test 28.5 pg 25.6-32.2 onju=430) MEAN CORPUSCULAR HEMOGLOBIN CONC (BEAKER) (test 31.2 GM/DL 32.2-35.5 gnls=703) RED CELL DISTRIBUTION WIDTH (BEAKER) (test 14.6 % 11.7-14.4 aemg=937) PLATELET COUNT (BEAKER) (test hdrr=828) 199 K/CU MM 150-450 MEAN PLATELET VOLUME (BEAKER) (test uchj=636) 11.4 fL 9.4-12.3 NUCLEATED RED BLOOD CELLS (BEAKER) (test 0 /100 WBC 0-0 kspv=691) NEUTROPHILS RELATIVE PERCENT (BEAKER) (test 74 % ewnv=735) LYMPHOCYTES RELATIVE PERCENT (BEAKER) (test 20 % gyby=357) MONOCYTES RELATIVE PERCENT (BEAKER) (test 4 % pxik=965) EOSINOPHILS RELATIVE PERCENT (BEAKER) (test 2 % hvew=265) BASOPHILS RELATIVE PERCENT (BEAKER) (test 0 % qjil=656) NEUTROPHILS ABSOLUTE COUNT (BEAKER) (test 6.05 K/ L 1.56-6.13 bdvy=650) LYMPHOCYTES ABSOLUTE COUNT (BEAKER) (test 1.64 K/ L 1.18-3.74 lvsy=331) MONOCYTES ABSOLUTE COUNT (BEAKER) (test 0.33 K/ L 0.24-0.36 ucuc=071) EOSINOPHILS ABSOLUTE COUNT (BEAKER) (test 0.12 K/ L 0.04-0.36 tblf=124) BASOPHILS ABSOLUTE COUNT (BEAKER) (test 0.01 K/ L 0.01-0.08 eoib=167) IMMATURE GRANULOCYTES-RELATIVE PERCENT (BEAKER) 1 % 0-1 (test htwg=2736) RAD, CHEST, 1 VIEW, NON [id number] 21:51:00Reason for exam:->Stroke work up.Is the patient ?->UnknownShould this be performed at the bedside?- >YesFINAL REPORT Clinical History: Stroke workup Comparison Study: None Findings: The cardiac silhouette is enlarged. The lungs are within normal limits. The pleural spaces are clear. No significant bony or soft tissue abnormalities are seen. Impression: Cardiomegaly. Signed: Wellington Goodwinort Verified Date/Time: 12/07/2017 21:51:29 Reading Location: [address] Consult Reading Room POCT-GLUCOSE [id number] 11:34:00 Test Item Value Reference Range Comments POC-GLUCOSE METER (BEAKER) 84 mg/dL 70-110 TESTED AT [facility] [address] [facility] (test yust=8985) [facility] [address] [id number] 08:58:00 Test Item Value Reference Range Comments PHOSPHORUS (BEAKER) (test exqs=938) 4.4 mg/dL 2.3-4.7 [id number] 08:58:00 Test Item Value Reference Range Comments MAGNESIUM (BEAKER) (test jwzp=550) 2.3 mg/dL 1.6-2.6 BASIC METABOLIC [id number] 08:58:00 Test Item Value Reference Range Comments SODIUM (BEAKER) (test 142 meq/L 136-145 ysqy=065) POTASSIUM (BEAKER) (test 3.9 meq/L 3.5-5.1 wnqw=323) CHLORIDE (BEAKER) (test 108 meq/L 98-107 ogkm=283) CO2 (BEAKER) (test 26 meq/L 22-29 wvhh=870) BLOOD UREA NITROGEN 16 mg/dL 7-21 (BEAKER) (test lwfr=666) CREATININE (BEAKER) (test 0.69 mg/dL 0.57-1.25 ojtv=307) GLUCOSE RANDOM (BEAKER) 86 mg/dL 70-105 (test kgtp=136) CALCIUM (BEAKER) (test 8.6 mg/dL 8.4-10.2 oanf=042) EGFR (BEAKER) (test 94 mL/min/1.73 sq m ESTIMATED GFR IS NOT wtia=2638) ACCURATE CREATININE CLEARANCE IN PREDICTING GLOMERULAR FILTRATION RATE. ESTIMATED GFR IS NOT APPLICABLE FOR DIALYSIS PATIENTS. HEPATIC FUNCTION [id number] 08:58:00 Test Item Value Reference Range Comments TOTAL PROTEIN (BEAKER) (test zuho=375) 6.8 gm/dL 6.0-8.3 ALBUMIN (BEAKER) (test tpnj=3507) 3.6 g/dL 3.5-5.0 BILIRUBIN TOTAL (BEAKER) (test rnii=688) 0.4 mg/dL 0.2-1.2 BILIRUBIN DIRECT (BEAKER) (test jumd=037) 0.2 mg/dL 0.1-0.5 ALKALINE PHOSPHATASE (BEAKER) (test ughc=669) 59 U/L 40-150 AST (SGOT) (BEAKER) (test upgk=327) 24 U/L 5-34 ALT (SGPT) (BEAKER) (test tyaz=244) 17 U/L 6-55 POCT-GLUCOSE [id number] 08:20:00 Test Item Value Reference Range Comments POC-GLUCOSE METER (BEAKER) 143 mg/dL 70-110 TESTED AT [facility] [address] [facility] (test umwa=8444) [facility] [address] PROTHROMBIN [id number] 05:55:00 Test Item Value Reference Range Comments PROTIME (BEAKER) (test qakc=134) 13.4 seconds 11.7-14.7 INR (BEAKER) (test mizw=329) 1.0 <=5.9 RECOMMENDED COUMADIN/WARFARIN INR THERAPY RANGESSTANDARD DOSE: 2.0 - 3.0 Includes: PROPHYLAXIS forvenous thrombosis, systemic embolization; TREATMENT for venous thrombosis and/or pulmonary embolus.HIGH RISK: Target INR is 2.5-3.5 for patients with mechanical heart valves.POCT-GLUCOSE [id number] 20:32:00 Test Item Value Reference Range Comments POC-GLUCOSE METER (BEAKER) 90 mg/dL 70-110 TESTED AT [address] (test ybzu=6824) [place] [address] POCT-GLUCOSE [id number] 16:47:00 Test Item Value Reference Range Comments POC-GLUCOSE METER (BEAKER) 79 mg/dL 70-110 TESTED AT [address] (test mwmv=4954) [place] [address] POCT-GLUCOSE [id number] 07:47:00 Test Item Value Reference Range Comments POC-GLUCOSE METER (BEAKER) 97 mg/dL 70-110 TESTED AT [address] (test sphz=1793) [place] [address] TROPONIN [id number] 07:02:00 Test Item Value Reference Range Comments TROPONIN I (BEAKER) (test vfbw=971) < ng/mL 0.00-0.03 Troponin I (TnI) levels [...] failure, acidosis, acute neurological disease, and persistent tachyarrhythmia.[id number] 07:00:00 Test Item Value Reference Range Comments PHOSPHORUS (BEAKER) (test wkfh=480) 5.0 mg/dL 2.3-4.7 [id number] 07:00:00 Test Item Value Reference Range Comments MAGNESIUM (BEAKER) (test usxq=268) 1.9 mg/dL 1.6-2.6 BASIC METABOLIC [id number] 07:00:00 Test Item Value Reference Range Comments SODIUM (BEAKER) (test 141 meq/L 136-145 rbjd=111) POTASSIUM (BEAKER) (test 4.0 meq/L 3.5-5.1 uopr=332) CHLORIDE (BEAKER) (test 106 meq/L 98-107 nhti=554) CO2 (BEAKER) (test 25 meq/L 22-29 ckyn=245) BLOOD UREA NITROGEN 14 mg/dL 7-21 (BEAKER) (test oihl=809) CREATININE (BEAKER) (test 0.72 mg/dL 0.57-1.25 hqrz=477) GLUCOSE RANDOM (BEAKER) 109 mg/dL 70-105 (test tgsh=597) CALCIUM (BEAKER) (test 9.5 mg/dL 8.4-10.2 opiv=374) EGFR (BEAKER) (test 89 mL/min/1.73 sq m ESTIMATED GFR IS NOT suww=5818) ACCURATE CREATININE CLEARANCE IN PREDICTING GLOMERULAR FILTRATION RATE. ESTIMATED GFR IS NOT APPLICABLE FOR DIALYSIS PATIENTS. HEPATIC FUNCTION [id number] 07:00:00 Test Item Value Reference Range Comments TOTAL PROTEIN (BEAKER) (test zbjb=697) 7.7 gm/dL 6.0-8.3 ALBUMIN (BEAKER) (test yopl=3299) 4.0 g/dL 3.5-5.0 BILIRUBIN TOTAL (BEAKER) (test slfh=299) 0.5 mg/dL 0.2-1.2 BILIRUBIN DIRECT (BEAKER) (test uxdj=642) 0.2 mg/dL 0.1-0.5 ALKALINE PHOSPHATASE (BEAKER) (test kdns=374) 69 U/L 40-150 AST (SGOT) (BEAKER) (test ohyw=001) 34 U/L 5-34 ALT (SGPT) (BEAKER) (test ylln=398) 21 U/L 6-55 PROTHROMBIN [id number] 06:31:00 Test Item Value Reference Range Comments PROTIME (BEAKER) (test otzb=636) 14.0 seconds 11.7-14.7 INR (BEAKER) (test yzkv=648) 1.1 <=5.9 RECOMMENDED COUMADIN/WARFARIN INR THERAPY RANGESSTANDARD DOSE: 2.0 - 3.0 Includes: PROPHYLAXIS forvenous thrombosis, systemic embolization; TREATMENT for venous thrombosis and/or pulmonary embolus.HIGH RISK: Target INR is 2.5-3.5 for patients with mechanical heart valves.CBC W/PLT COUNT & AUTO [id number] 06:28:00 Test Item Value Reference Range Comments WHITE BLOOD CELL COUNT (BEAKER) (test dhpv=748) 8.9 K/ L 3.5-10.5 RED BLOOD CELL COUNT (BEAKER) (test hxqw=245) 4.55 M/ L 3.93-5.22 HEMOGLOBIN (BEAKER) (test faul=590) 13.0 GM/DL 11.2-15.7 HEMATOCRIT (BEAKER) (test gidh=527) 42.0 % 34.1-44.9 MEAN CORPUSCULAR VOLUME (BEAKER) (test focf=763) 92.3 fL 79.4-94.8 MEAN CORPUSCULAR HEMOGLOBIN (BEAKER) (test 28.6 pg 25.6-32.2 xmry=453) MEAN CORPUSCULAR HEMOGLOBIN CONC (BEAKER) (test 31.0 GM/DL 32.2-35.5 rfie=413) RED CELL DISTRIBUTION WIDTH (BEAKER) (test 13.9 % 11.7-14.4 bfeu=555) PLATELET COUNT (BEAKER) (test ydpj=127) 202 K/CU MM 150-450 MEAN PLATELET VOLUME (BEAKER) (test vxun=904) 12.6 fL 9.4-12.3 NUCLEATED RED BLOOD CELLS (BEAKER) (test 0 /100 WBC 0-0 nvqi=344) NEUTROPHILS RELATIVE PERCENT (BEAKER) (test 70 % blzj=148) LYMPHOCYTES RELATIVE PERCENT (BEAKER) (test 23 % btoq=941) MONOCYTES RELATIVE PERCENT (BEAKER) (test 4 % yocs=964) EOSINOPHILS RELATIVE PERCENT (BEAKER) (test 3 % ivoy=530) BASOPHILS RELATIVE PERCENT (BEAKER) (test 0 % ixoa=076) NEUTROPHILS ABSOLUTE COUNT (BEAKER) (test 6.19 K/ L 1.56-6.13 hxye=694) LYMPHOCYTES ABSOLUTE COUNT (BEAKER) (test 2.03 K/ L 1.18-3.74 bgar=638) MONOCYTES ABSOLUTE COUNT (BEAKER) (test 0.37 K/ L 0.24-0.36 ybhm=704) EOSINOPHILS ABSOLUTE COUNT (BEAKER) (test 0.24 K/ L 0.04-0.36 rjeg=401) BASOPHILS ABSOLUTE COUNT (BEAKER) (test 0.02 K/ L 0.01-0.08 mspg=751) IMMATURE GRANULOCYTES-RELATIVE PERCENT (BEAKER) 0 % 0-1 (test xxxh=0011) CREATINE KINASE (CK), TOTAL AND [id number] 01:39:00 Test Item Value Reference Range Comments CREATINE KINASE TOTAL (BEAKER) (test gsdi=742) 55 U/L 29-200 CREATINE KINASE-MB (BEAKER) (test lsrr=385) 1.1 ng/mL 0.0-6.6 CREATINE KINASE-MB INDEX (BEAKER) (test rwtz=185) 2.0 % CK-MB Reference Range:<6.7 Normal6.7-10.0 Borderline>10.0 AbnormalTROPONIN [id number] 01:39:00 Test Item Value Reference Range Comments TROPONIN I (BEAKER) (test uokz=130) < ng/mL 0.00-0.03 Troponin I (TnI) levels [...] acidosis, acute neurological disease, and persistent tachyarrhythmia.POCT-GLUCOSE [id number] 12:39:00 Test Item Value Reference Range Comments POC-GLUCOSE METER (BEAKER) 80 mg/dL 70-110 TESTED AT [address] (test ynmm=3899) [facility] [id number] POCT-GLUCOSE [id number] 07:07:00 Test Item Value Reference Range Comments POC-GLUCOSE METER (BEAKER) 100 mg/dL 70-110 TESTED AT [address] (test mrpx=4416) [facility] [id number] POCT-GLUCOSE [id number] 21:12:00 Test Item Value Reference Range Comments POC-GLUCOSE METER (BEAKER) 138 mg/dL 70-110 TESTED AT [address] (test fsax=7006) [facility] [address] POCT-GLUCOSE [id number] 12:04:00 Test Item Value Reference Range Comments POC-GLUCOSE METER (BEAKER) 113 mg/dL 70-110 TESTED AT [facility] [address] [facility] (test rypa=1262) [facility] [address] BASIC METABOLIC [id number] 04:26:00 Test Item Value Reference Range Comments SODIUM (BEAKER) (test 141 meq/L 136-145 akof=212) POTASSIUM (BEAKER) (test 4.2 meq/L 3.5-5.1 Specimen moderately tijq=442) hemolyzed CHLORIDE (BEAKER) (test 107 meq/L 98-107 ovzj=340) CO2 (BEAKER) (test 25 meq/L 22-29 wxaa=735) BLOOD UREA NITROGEN 13 mg/dL 7-21 (BEAKER) (test buyl=011) CREATININE (BEAKER) (test 0.61 mg/dL 0.57-1.25 Specimen moderately qzua=229) hemolyzed GLUCOSE RANDOM (BEAKER) 93 mg/dL 70-105 (test ycdb=465) CALCIUM (BEAKER) (test 9.0 mg/dL 8.4-10.2 uavz=064) EGFR (BEAKER) (test 108 mL/min/1.73 sq m ESTIMATED GFR IS NOT mpeu=7435) ACCURATE CREATININE CLEARANCE IN PREDICTING GLOMERULAR FILTRATION RATE. ESTIMATED GFR IS NOT APPLICABLE FOR DIALYSIS PATIENTS. CBC W/PLT COUNT & AUTO [id number] 04:02:00 Test Item Value Reference Range Comments WHITE BLOOD CELL COUNT (BEAKER) (test yhuk=178) 8.4 K/ L 3.5-10.5 RED BLOOD CELL COUNT (BEAKER) (test cver=059) 4.15 M/ L 3.93-5.22 HEMOGLOBIN (BEAKER) (test wlqw=073) 11.8 GM/DL 11.2-15.7 HEMATOCRIT (BEAKER) (test snra=445) 37.9 % 34.1-44.9 MEAN CORPUSCULAR VOLUME (BEAKER) (test xgfu=804) 91.3 fL 79.4-94.8 MEAN CORPUSCULAR HEMOGLOBIN (BEAKER) (test 28.4 pg 25.6-32.2 gobc=366) MEAN CORPUSCULAR HEMOGLOBIN CONC (BEAKER) (test 31.1 GM/DL 32.2-35.5 qqug=119) RED CELL DISTRIBUTION WIDTH (BEAKER) (test 14.1 % 11.7-14.4 bgue=655) PLATELET COUNT (BEAKER) (test sipw=786) 200 K/CU MM 150-450 MEAN PLATELET VOLUME (BEAKER) (test huxs=347) 11.9 fL 9.4-12.3 NUCLEATED RED BLOOD CELLS (BEAKER) (test 0 /100 WBC 0-0 vucg=655) NEUTROPHILS RELATIVE PERCENT (BEAKER) (test 73 % wdfr=986) LYMPHOCYTES RELATIVE PERCENT (BEAKER) (test 19 % svkm=628) MONOCYTES RELATIVE PERCENT (BEAKER) (test 5 % qyoj=031) EOSINOPHILS RELATIVE PERCENT (BEAKER) (test 3 % yeiv=981) BASOPHILS RELATIVE PERCENT (BEAKER) (test 0 % vykj=258) NEUTROPHILS ABSOLUTE COUNT (BEAKER) (test 6.08 K/ L 1.56-6.13 jqqf=264) LYMPHOCYTES ABSOLUTE COUNT (BEAKER) (test 1.62 K/ L 1.18-3.74 fegd=166) MONOCYTES ABSOLUTE COUNT (BEAKER) (test 0.39 K/ L 0.24-0.36 kler=262) EOSINOPHILS ABSOLUTE COUNT (BEAKER) (test 0.24 K/ L 0.04-0.36 bmtm=645) BASOPHILS ABSOLUTE COUNT (BEAKER) (test 0.01 K/ L 0.01-0.08 tkfe=595) IMMATURE GRANULOCYTES-RELATIVE PERCENT (BEAKER) 1 % 0-1 (test jywe=6147) CLOSTRIDIUM DIFFICILE TOXIN [id number] 13:44:00 Test Item Value Reference Range Comments CLOSTRIDIUM DIFFICILE TOXIN, PCR (BEAKER) (test Not Detected Not Detected vwyy=7665) This qualitative real-time polymerase chain reaction assay [...] a positive result is not recommended.CT, CTANGIO [id number] 06:59:00Addendum BeginsREPORT STATUS:A Three-dimensional post intravenous contrast images of the cerebral vasculature were created on a free standing workstation for better visualization of cerebral vascular anatomy and pathology. Signed: SukhdeepParish pillaian MDReport Verified Date/Time: 04/12/2017 06:59:20 Reading Location: [address] Ortho Consult Reading RoomAddendum EndsFINAL REPORT [...] MDReport Verified Date/Time: 04/07/2017 01:12:44 Reading Location: [facility] [id number] Ortho Consult Reading Room BASIC METABOLIC [id number] 05:37:00 Test Item Value Reference Range Comments SODIUM (BEAKER) (test 142 meq/L 136-145 dsqg=578) POTASSIUM (BEAKER) (test 3.7 meq/L 3.5-5.1 Specimen slightly ehbt=285) hemolyzed CHLORIDE (BEAKER) (test 105 meq/L 98-107 ggfa=539) CO2 (BEAKER) (test 27 meq/L 22-29 jotx=760) BLOOD UREA NITROGEN 11 mg/dL 7-21 (BEAKER) (test cwrw=059) CREATININE (BEAKER) (test 0.66 mg/dL 0.57-1.25 Specimen slightly lfas=196) hemolyzed GLUCOSE RANDOM (BEAKER) 97 mg/dL 70-105 (test fqsn=898) CALCIUM (BEAKER) (test 9.2 mg/dL 8.4-10.2 vtzb=660) EGFR (BEAKER) (test 99 mL/min/1.73 sq m ESTIMATED GFR IS NOT mher=9753) ACCURATE CREATININE CLEARANCE IN PREDICTING GLOMERULAR FILTRATION RATE. ESTIMATED GFR IS NOT APPLICABLE FOR DIALYSIS PATIENTS. CBC (HEMOGRAM ONLY)2017-04-12 05:17:00 Test Item Value Reference Range Comments WHITE BLOOD CELL COUNT (BEAKER) (test twrx=280) 7.7 K/ L 3.5-10.5 RED BLOOD CELL COUNT (BEAKER) (test trvk=642) 4.17 M/ L 3.93-5.22 HEMOGLOBIN (BEAKER) (test vztf=336) 12.0 GM/DL 11.2-15.7 HEMATOCRIT (BEAKER) (test cuam=499) 38.0 % 34.1-44.9 MEAN CORPUSCULAR VOLUME (BEAKER) (test afsb=518) 91.1 fL 79.4-94.8 MEAN CORPUSCULAR HEMOGLOBIN (BEAKER) (test 28.8 pg 25.6-32.2 ubxt=067) MEAN CORPUSCULAR HEMOGLOBIN CONC (BEAKER) (test 31.6 GM/DL 32.2-35.5 bbyr=502) RED CELL DISTRIBUTION WIDTH (BEAKER) (test 14.0 % 11.7-14.4 ipyq=807) PLATELET COUNT (BEAKER) (test tter=396) 219 K/CU MM 150-450 MEAN PLATELET VOLUME (BEAKER) (test ibxz=258) 11.6 fL 9.4-12.3 NUCLEATED RED BLOOD CELLS (BEAKER) (test 0 /100 WBC 0-0 jovq=936) POCT-GLUCOSE [id number] 17:55:00 Test Item Value Reference Range Comments POC-GLUCOSE METER (BEAKER) 111 mg/dL 70-110 TESTED AT [address] (test apio=4406) [place] [id number] POCT-GLUCOSE [id number] 12:02:00 Test Item Value Reference Range Comments POC-GLUCOSE METER (BEAKER) 100 mg/dL 70-110 TESTED AT [address] (test zcuf=0324) [place] [address] POCT-GLUCOSE [id number] 07:50:00 Test Item Value Reference Range Comments POC-GLUCOSE METER (BEAKER) 110 mg/dL 70-110 TESTED AT [address] (test iktn=7812) [place] [address] POCT-GLUCOSE [id number] 16:56:00 Test Item Value Reference Range Comments POC-GLUCOSE METER (BEAKER) 104 mg/dL 70-110 TESTED AT [address] (test spty=6851) [place] [address] POCT-GLUCOSE [id number] 12:22:00 Test Item Value Reference Range Comments POC-GLUCOSE METER (BEAKER) 84 mg/dL 70-110 TESTED AT [facility] [address] (test suqj=3194) [facility] [address] HEMOGLOBIN [id number] 08:46:00 Test Item Value Reference Range Comments HEMOGLOBIN A1C (BEAKER) (test nqgs=921) 6.2 % 4.3-6.1 BASIC METABOLIC [id number] 06:42:00 Test Item Value Reference Range Comments SODIUM (BEAKER) (test 142 meq/L 136-145 fiyp=528) POTASSIUM (BEAKER) (test 4.1 meq/L 3.5-5.1 Specimen slightly ooqi=021) hemolyzed CHLORIDE (BEAKER) (test 104 meq/L 98-107 bdkk=980) CO2 (BEAKER) (test 28 meq/L 22-29 ikty=065) BLOOD UREA NITROGEN 9 mg/dL 7-21 (BEAKER) (test xhfo=762) CREATININE (BEAKER) (test 0.60 mg/dL 0.57-1.25 Specimen slightly raxh=941) hemolyzed GLUCOSE RANDOM (BEAKER) 96 mg/dL 70-105 (test klpw=699) CALCIUM (BEAKER) (test 9.1 mg/dL 8.4-10.2 jzyz=336) EGFR (BEAKER) (test 110 mL/min/1.73 sq m ESTIMATED GFR IS NOT dvqc=2510) ACCURATE CREATININE CLEARANCE IN PREDICTING GLOMERULAR FILTRATION RATE. ESTIMATED GFR IS NOT APPLICABLE FOR DIALYSIS PATIENTS. CBC W/PLT COUNT & AUTO [id number] 06:19:00 Test Item Value Reference Range Comments WHITE BLOOD CELL COUNT (BEAKER) (test zcvv=463) 7.5 K/ L 3.5-10.5 RED BLOOD CELL COUNT (BEAKER) (test xmwr=024) 4.12 M/ L 3.93-5.22 HEMOGLOBIN (BEAKER) (test ybvj=860) 11.8 GM/DL 11.2-15.7 HEMATOCRIT (BEAKER) (test twwa=400) 37.6 % 34.1-44.9 MEAN CORPUSCULAR VOLUME (BEAKER) (test yjvo=286) 91.3 fL 79.4-94.8 MEAN CORPUSCULAR HEMOGLOBIN (BEAKER) (test 28.6 pg 25.6-32.2 rwmw=510) MEAN CORPUSCULAR HEMOGLOBIN CONC (BEAKER) (test 31.4 GM/DL 32.2-35.5 uerl=395) RED CELL DISTRIBUTION WIDTH (BEAKER) (test 13.8 % 11.7-14.4 qjqs=604) PLATELET COUNT (BEAKER) (test jgsz=849) 192 K/CU MM 150-450 MEAN PLATELET VOLUME (BEAKER) (test glci=307) 11.6 fL 9.4-12.3 NUCLEATED RED BLOOD CELLS (BEAKER) (test 0 /100 WBC 0-0 cgpt=667) NEUTROPHILS RELATIVE PERCENT (BEAKER) (test 77 % otwi=144) LYMPHOCYTES RELATIVE PERCENT (BEAKER) (test 16 % bwhg=722) MONOCYTES RELATIVE PERCENT (BEAKER) (test 4 % pgeq=749) EOSINOPHILS RELATIVE PERCENT (BEAKER) (test 2 % nlro=197) BASOPHILS RELATIVE PERCENT (BEAKER) (test 0 % eidq=923) NEUTROPHILS ABSOLUTE COUNT (BEAKER) (test 5.82 K/ L 1.56-6.13 nmde=145) LYMPHOCYTES ABSOLUTE COUNT (BEAKER) (test 1.21 K/ L 1.18-3.74 xsyd=496) MONOCYTES ABSOLUTE COUNT (BEAKER) (test 0.31 K/ L 0.24-0.36 wsho=666) EOSINOPHILS ABSOLUTE COUNT (BEAKER) (test 0.15 K/ L 0.04-0.36 rdko=831) BASOPHILS ABSOLUTE COUNT (BEAKER) (test 0.01 K/ L 0.01-0.08 omsz=048) IMMATURE GRANULOCYTES-RELATIVE PERCENT (BEAKER) 1 % 0-1 (test ynnh=0897) POCT-GLUCOSE [id number] 12:07:00 Test Item Value Reference Range Comments POC-GLUCOSE METER (BEAKER) 110 mg/dL 70-110 TESTED AT [facility] [address] [place] [address] (test ylkv=3255) [facility] [address] CT, BRAIN, WITHOUT [id number] 06:55:00FINAL REPORT Clinical history : Decreased alertnessComparison [...] Verified Date/Time: 04/09/2017 06 :55:25 Reading Location: [facility] [id number] Consult Reading Room BASIC METABOLIC [id number] 05:57:00 Test Item Value Reference Range Comments SODIUM (BEAKER) (test 140 meq/L 136-145 cohy=255) POTASSIUM (BEAKER) (test 3.7 meq/L 3.5-5.1 kjpe=440) CHLORIDE (BEAKER) (test 103 meq/L 98-107 syef=757) CO2 (BEAKER) (test 29 meq/L 22-29 ouun=683) BLOOD UREA NITROGEN 7 mg/dL 7-21 (BEAKER) (test bnsf=694) CREATININE (BEAKER) (test 0.56 mg/dL 0.57-1.25 faez=227) GLUCOSE RANDOM (BEAKER) 110 mg/dL 70-105 (test casp=566) CALCIUM (BEAKER) (test 8.7 mg/dL 8.4-10.2 brww=569) EGFR (BEAKER) (test 119 mL/min/1.73 sq m ESTIMATED GFR IS NOT kmcv=9392) ACCURATE CREATININE CLEARANCE IN PREDICTING GLOMERULAR FILTRATION RATE. ESTIMATED GFR IS NOT APPLICABLE FOR DIALYSIS PATIENTS. CBC W/PLT COUNT & AUTO [id number] 04:54:00 Test Item Value Reference Range Comments WHITE BLOOD CELL COUNT (BEAKER) (test qzhp=461) 8.1 K/ L 3.5-10.5 RED BLOOD CELL COUNT (BEAKER) (test pwoc=312) 4.07 M/ L 3.93-5.22 HEMOGLOBIN (BEAKER) (test jdtu=491) 11.6 GM/DL 11.2-15.7 HEMATOCRIT (BEAKER) (test yldf=431) 37.3 % 34.1-44.9 MEAN CORPUSCULAR VOLUME (BEAKER) (test gkrr=039) 91.6 fL 79.4-94.8 MEAN CORPUSCULAR HEMOGLOBIN (BEAKER) (test 28.5 pg 25.6-32.2 yify=690) MEAN CORPUSCULAR HEMOGLOBIN CONC (BEAKER) (test 31.1 GM/DL 32.2-35.5 hoem=318) RED CELL DISTRIBUTION WIDTH (BEAKER) (test 13.6 % 11.7-14.4 jtkn=193) PLATELET COUNT (BEAKER) (test mnmd=668) 171 K/CU MM 150-450 MEAN PLATELET VOLUME (BEAKER) (test oqvj=560) 11.3 fL 9.4-12.3 NUCLEATED RED BLOOD CELLS (BEAKER) (test 0 /100 WBC 0-0 efso=718) NEUTROPHILS RELATIVE PERCENT (BEAKER) (test 77 % vcmm=932) LYMPHOCYTES RELATIVE PERCENT (BEAKER) (test 16 % mhkf=394) MONOCYTES RELATIVE PERCENT (BEAKER) (test 5 % qkgc=080) EOSINOPHILS RELATIVE PERCENT (BEAKER) (test 2 % gbad=927) BASOPHILS RELATIVE PERCENT (BEAKER) (test 0 % xhwo=614) NEUTROPHILS ABSOLUTE COUNT (BEAKER) (test 6.20 K/ L 1.56-6.13 ikeb=168) LYMPHOCYTES ABSOLUTE COUNT (BEAKER) (test 1.30 K/ L 1.18-3.74 dnci=943) MONOCYTES ABSOLUTE COUNT (BEAKER) (test 0.38 K/ L 0.24-0.36 ihlk=421) EOSINOPHILS ABSOLUTE COUNT (BEAKER) (test 0.14 K/ L 0.04-0.36 rkaw=582) BASOPHILS ABSOLUTE COUNT (BEAKER) (test 0.01 K/ L 0.01-0.08 fzfc=748) IMMATURE GRANULOCYTES-RELATIVE PERCENT (BEAKER) 1 % 0-1 (test zhbb=0097) POCT-GLUCOSE [id number] 01:34:00 Test Item Value Reference Range Comments POC-GLUCOSE METER (BEAKER) 92 mg/dL 70-110 TESTED AT [facility] [address] [facility] (test grtj=1449) [facility] [address] POCT-GLUCOSE [id number] 19:20:00 Test Item Value Reference Range Comments POC-GLUCOSE METER (BEAKER) 85 mg/dL 70-110 TESTED AT [address] (test tmma=2511) [place] [id number] CT, BRAIN, WITHOUT [id number] 15:47:00FINAL REPORT CT head without contrast. Comparisons: [...] [place] Verified Date/Time: 04/08/2017 15:47:42 POCT- GLUCOSE [id number] 12:44:00 Test Item Value Reference Range Comments POC-GLUCOSE METER (BEAKER) 94 mg/dL 70-110 TESTED AT [address] (test eupr=6094) [facility] [address] BASIC METABOLIC [id number] 05:05:00 Test Item Value Reference Range Comments SODIUM (BEAKER) (test 142 meq/L 136-145 qbgv=387) POTASSIUM (BEAKER) (test 4.0 meq/L 3.5-5.1 lwpx=323) CHLORIDE (BEAKER) (test 107 meq/L 98-107 hizu=682) CO2 (BEAKER) (test 27 meq/L 22-29 jata=966) BLOOD UREA NITROGEN 9 mg/dL 7-21 (BEAKER) (test rsyf=583) CREATININE (BEAKER) (test 0.59 mg/dL 0.57-1.25 tmsl=645) GLUCOSE RANDOM (BEAKER) 105 mg/dL 70-105 (test frsa=766) CALCIUM (BEAKER) (test 8.7 mg/dL 8.4-10.2 tsci=979) EGFR (BEAKER) (test 112 mL/min/1.73 sq m ESTIMATED GFR IS NOT tmov=9946) ACCURATE CREATININE CLEARANCE IN PREDICTING GLOMERULAR FILTRATION RATE. ESTIMATED GFR IS NOT APPLICABLE FOR DIALYSIS PATIENTS. CBC W/PLT COUNT & AUTO [id number] 04:28:00 Test Item Value Reference Range Comments WHITE BLOOD CELL COUNT (BEAKER) (test mxmb=129) 7.1 K/ L 3.5-10.5 RED BLOOD CELL COUNT (BEAKER) (test fiav=932) 3.90 M/ L 3.93-5.22 HEMOGLOBIN (BEAKER) (test easa=316) 11.0 GM/DL 11.2-15.7 HEMATOCRIT (BEAKER) (test zbov=835) 36.6 % 34.1-44.9 MEAN CORPUSCULAR VOLUME (BEAKER) (test icqg=982) 93.8 fL 79.4-94.8 MEAN CORPUSCULAR HEMOGLOBIN (BEAKER) (test 28.2 pg 25.6-32.2 yuzl=802) MEAN CORPUSCULAR HEMOGLOBIN CONC (BEAKER) (test 30.1 GM/DL 32.2-35.5 asum=688) RED CELL DISTRIBUTION WIDTH (BEAKER) (test 14.2 % 11.7-14.4 lngu=625) PLATELET COUNT (BEAKER) (test clel=030) 187 K/CU MM 150-450 MEAN PLATELET VOLUME (BEAKER) (test cqji=735) 10.9 fL 9.4-12.3 NUCLEATED RED BLOOD CELLS (BEAKER) (test 0 /100 WBC 0-0 seer=394) NEUTROPHILS RELATIVE PERCENT (BEAKER) (test 73 % xsga=419) LYMPHOCYTES RELATIVE PERCENT (BEAKER) (test 19 % udmp=143) MONOCYTES RELATIVE PERCENT (BEAKER) (test 5 % futr=216) EOSINOPHILS RELATIVE PERCENT (BEAKER) (test 2 % qffo=120) BASOPHILS RELATIVE PERCENT (BEAKER) (test 0 % pcwb=980) NEUTROPHILS ABSOLUTE COUNT (BEAKER) (test 5.22 K/ L 1.56-6.13 irbs=384) LYMPHOCYTES ABSOLUTE COUNT (BEAKER) (test 1.37 K/ L 1.18-3.74 vnvw=320) MONOCYTES ABSOLUTE COUNT (BEAKER) (test 0.34 K/ L 0.24-0.36 cllg=711) EOSINOPHILS ABSOLUTE COUNT (BEAKER) (test 0.13 K/ L 0.04-0.36 wbut=446) BASOPHILS ABSOLUTE COUNT (BEAKER) (test 0.01 K/ L 0.01-0.08 gpdz=442) IMMATURE GRANULOCYTES-RELATIVE PERCENT (BEAKER) 1 % 0-1 (test ried=0855) POCT-GLUCOSE [id number] 17:32:00 Test Item Value Reference Range Comments POC-GLUCOSE METER (BEAKER) 90 mg/dL 70-110 TESTED AT [address] (test yrsb=5291) [facility] [address] POCT-GLUCOSE [id number] 12:02:00 Test Item Value Reference Range Comments POC-GLUCOSE METER (BEAKER) 91 mg/dL 70-110 TESTED AT [address] (test ejdx=4697) [place] [address] EEG AWAKE AND [id number] 11:38:00Reason for exam:->R/O subclinical seizuresDATE OF [id number] OF REPORT: [id number]: [id number]: 17- 1801Start time: 09:54Stop time: 10:18ICD-10: G 93.40CPT Code: 69905 HISTORY: 41 y.o. female with history of morbid obesity, DM2 who presented today to OSH with R sided facial droop and LUE weakness . Patient was evaluated at OSH where patient was started with tPA after normal CT. Now with acute encephalopathy MEDICATIONS THAT COULD AFFECT EEG: TECHNICAL SUMMARY: This is a digital EEG recorded with 32 input channels on a Pump [employer] system and then reviewed with bipolar and [...] additional EEG recordings. Javi Mae MDNeurophysiology Fellow [id number] Note: I personally reviewed this EEG record in its entirety and I agreewith the details of this report. Kitty Montejo MD, PhDEpilepsy Attending 11 :38 AMCREATINE KINASE (CK), TOTAL AND [id number] 09:35:00 Test Item Value Reference Range Comments CREATINE KINASE TOTAL (BEAKER) (test odmh=270) 52 U/L 29-200 CREATINE KINASE-MB (BEAKER) (test cwum=796) 1.2 ng/mL 0.0-6.6 CREATINE KINASE-MB INDEX (BEAKER) (test yqge=526) 2.3 % CK-MB Reference Range:<6.7 Normal6.7-10.0 Borderline>10.0 AbnormalTROPONIN [id number] 09:31:00 Test Item Value Reference Range Comments TROPONIN I (BEAKER) (test ynxj=558) < ng/mL 0.00-0.03 Troponin I (TnI) levels [...] failure, acidosis, acute neurological disease, and persistent tachyarrhythmia.[id number] 09:28:00 Test Item Value Reference Range Comments AMMONIA (BEAKER) (test nsin=021) 34 mol/L 18-72 TSH/FREE T4 IF [id number] 04:28:00 Test Item Value Reference Range Comments THYROID STIMULATING HORMONE (BEAKER) (test 1.12 uIU/mL 0.35-4.94 ttuy=951) VITAMIN B12 AND [id number] 04:28:00 Test Item Value Reference Range Comments VITAMIN B12 (BEAKER) (test gabb=496) 417 pg/mL 213-816 FOLATE (BEAKER) (test yadq=233) 13.6 ng/mL >=7.0 CBC W/PLT COUNT & AUTO [id number] 03:27:00 Test Item Value Reference Range Comments WHITE BLOOD CELL COUNT (BEAKER) (test bdzx=149) 8.1 K/ L 3.5-10.5 RED BLOOD CELL COUNT (BEAKER) (test ltwv=292) 3.91 M/ L 3.93-5.22 HEMOGLOBIN (BEAKER) (test fhey=015) 11.4 GM/DL 11.2-15.7 HEMATOCRIT (BEAKER) (test eivu=413) 35.8 % 34.1-44.9 MEAN CORPUSCULAR VOLUME (BEAKER) (test uprb=491) 91.6 fL 79.4-94.8 MEAN CORPUSCULAR HEMOGLOBIN (BEAKER) (test 29.2 pg 25.6-32.2 vcip=838) MEAN CORPUSCULAR HEMOGLOBIN CONC (BEAKER) (test 31.8 GM/DL 32.2-35.5 meaq=307) RED CELL DISTRIBUTION WIDTH (BEAKER) (test 14.3 % 11.7-14.4 advv=934) PLATELET COUNT (BEAKER) (test vszs=732) 166 K/CU MM 150-450 MEAN PLATELET VOLUME (BEAKER) (test chrc=753) 12.4 fL 9.4-12.3 NUCLEATED RED BLOOD CELLS (BEAKER) (test 0 /100 WBC 0-0 fsfc=417) NEUTROPHILS RELATIVE PERCENT (BEAKER) (test 78 % ypwa=956) LYMPHOCYTES RELATIVE PERCENT (BEAKER) (test 16 % lggn=798) MONOCYTES RELATIVE PERCENT (BEAKER) (test 4 % rqed=025) EOSINOPHILS RELATIVE PERCENT (BEAKER) (test 1 % qofe=921) BASOPHILS RELATIVE PERCENT (BEAKER) (test 0 % bixw=119) NEUTROPHILS ABSOLUTE COUNT (BEAKER) (test 6.27 K/ L 1.56-6.13 pymo=754) LYMPHOCYTES ABSOLUTE COUNT (BEAKER) (test 1.30 K/ L 1.18-3.74 nibo=114) MONOCYTES ABSOLUTE COUNT (BEAKER) (test 0.32 K/ L 0.24-0.36 zcst=828) EOSINOPHILS ABSOLUTE COUNT (BEAKER) (test 0.09 K/ L 0.04-0.36 cvcq=627) BASOPHILS ABSOLUTE COUNT (BEAKER) (test 0.02 K/ L 0.01-0.08 wozs=793) IMMATURE GRANULOCYTES-RELATIVE PERCENT (BEAKER) 1 % 0-1 (test jsgs=3305) CREATINE KINASE (CK), TOTAL AND [id number] 03:11:00 Test Item Value Reference Range Comments CREATINE KINASE TOTAL (BEAKER) (test fhlb=985) 71 U/L 29-200 CREATINE KINASE-MB (BEAKER) (test gjac=741) 1.5 ng/mL 0.0-6.6 CREATINE KINASE-MB INDEX (BEAKER) (test uqvn=012) 2.1 % CK-MB Reference Range:<6.7 Normal6.7-10.0 Borderline>10.0 AbnormalFastingFastingTROPONIN [id number] 03:11:00 Test Item Value Reference Range Comments TROPONIN I (BEAKER) (test ijgx=853) < ng/mL 0.00-0.03 Troponin I (TnI) levels [...] acute neurological disease, and persistent tachyarrhythmia.FastingBASIC METABOLIC [id number] 03:04:00 Test Item Value Reference Range Comments SODIUM (BEAKER) (test 139 meq/L 136-145 skuq=557) POTASSIUM (BEAKER) (test 4.3 meq/L 3.5-5.1 Specimen moderately cgly=059) hemolyzed CHLORIDE (BEAKER) (test 107 meq/L 98-107 elxd=212) CO2 (BEAKER) (test 24 meq/L 22-29 qixg=412) BLOOD UREA NITROGEN 12 mg/dL 7-21 (BEAKER) (test nedn=658) CREATININE (BEAKER) (test 0.68 mg/dL 0.57-1.25 Specimen moderately qifn=233) hemolyzed GLUCOSE RANDOM (BEAKER) 175 mg/dL 70-105 (test pran=862) CALCIUM (BEAKER) (test 8.5 mg/dL 8.4-10.2 riaj=423) EGFR (BEAKER) (test 95 mL/min/1.73 sq m ESTIMATED GFR IS NOT rctx=4298) ACCURATE CREATININE CLEARANCE IN PREDICTING GLOMERULAR FILTRATION RATE. ESTIMATED GFR IS NOT APPLICABLE FOR DIALYSIS PATIENTS. FastingLIPID [id number] 03:04:00 Test Item Value Reference Range Comments TRIGLYCERIDES (BEAKER) (test 99 mg/dL Specimen moderately qota=232) hemolyzed CHOLESTEROL (BEAKER) (test 139 mg/dL Specimen moderately abmp=209) hemolyzed HDL CHOLESTEROL (BEAKER) (test 43 mg/dL tfgy=702) LDL CHOLESTEROL CALCULATED 76 mg/dL (BEAKER) (test lirn=099) Triglyceride Reference Range: Low Risk <150 Borderline 150- 199 High Risk 200-499 Very High Risk >=500Cholesterol Reference Range: Low Risk <200 Borderline 200-239 High Risk > 240HDL Cholesterol Reference Range: Low Risk >=60 High Risk <40LDL Cholesterol Reference Range: Optimal <100 Near Optimal 100-129 Borderline 130-159 High 160-189 Very High >=190 FastingHEPATIC FUNCTION [id number] 03:04:00 Test Item Value Reference Range Comments TOTAL PROTEIN (BEAKER) (test 7.2 gm/dL 6.0-8.3 Specimen moderately hemolyzed yacp=304) ALBUMIN (BEAKER) (test 3.4 g/dL 3.5-5.0 Specimen moderately hemolyzed mynl=7153) BILIRUBIN TOTAL (BEAKER) (test 0.3 mg/dL 0.2-1.2 Specimen moderately hemolyzed bdxp=776) BILIRUBIN DIRECT (BEAKER) 0.1 mg/dL 0.1-0.5 Specimen moderately hemolyzed (test uyqe=104) ALKALINE PHOSPHATASE (BEAKER) 74 U/L 40-150 (test rbwu=287) AST (SGOT) (BEAKER) (test 37 U/L 5-34 Specimen moderately hemolyzed umfm=141) ALT (SGPT) (BEAKER) (test 18 U/L 6-55 Specimen moderately bsjp=866) hemolyzed Fasting
[2019-02-11 12:38] LABS: Urine Bacteria 20-50 /HPF (<20); Urine Culture Reflex Order REFLEXED; Urine Mucus 2+ /HPF (NONE SEEN); Urine RBC <5 /HPF (NONE SEEN)
[2019-02-11 12:39] LABS: Urine Blood 1+ (NEG); Urine Glucose NEGATIVE (NEG); Urine Protein NEGATIVE (NEG); Urine Specific Gravity 1.025 (1.005-1.030); Urine pH 5.5 (5.0-7.0)
[2019-02-11 14:07] LABS: Absolute Lymphocytes (CBC) 1.4 K/uL (0.7-4.9); Basophils % 0.4 % (0-1.3); Hematocrit 37.8 % (36.0-45.0); Lymphocytes % 18.4 % (15.3-44.8); MPV 9.7 fL (7.6-11.3); RBC Red Blood Cell Count 4.28 M/uL (3.86-4.86)
[2019-02-11 14:21] LABS: BUN Blood Urea Nitrogen 13 mg/dL (7-18); Bicarbonate 28 mmol/L (21-32); Glucose Level 85 mg/dL (74-106); Magnesium 2.1 mg/dL (1.8-2.4); Sodium Level 145 mmol/L (136-145)
[2019-02-11] MEDS ORDERED: CEFTRIAXONE/SWI 1gm 1 GM/10 ML SYR ONE (14:32)
--- NOTE | 2019-02-11 14:32 | ER ---
Nurse's Notes [facility] Name: Kelle Calderón Age: 43 yrs Sex: Female : 1975 Arrival Date: 02/11/2019 Time: 11:29 Bed 23 Private MD: Diagnosis: Urinary tract infection, site not specified Presentation: 02/11 11:35 Presenting complaint: Patient states: I have been feeling ill since Tuesday with body la1 aches, SOB, abd pain, back pain, runny nose. Transition of care: patient was not received from another setting of care. Onset of symptoms was February 11, 2019. Risk Assessment: Do you want to hurt yourself or someone else? Patient reports no desire to harm self or others. Initial Sepsis Screen: Does the patient meet any 2 criteria? No. Patient's initial sepsis screen is negative. Does the patient have a suspected source of infection? No. Patient's initial sepsis screen is negative. Care prior to arrival: None. 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 - Social history:: Smoking status: unknown. - Ebola Screening: : No symptoms or risks identified at this time. Screenin:05 Abuse screen: Denies threats or abuse. Denies injuries from another. Nutritional ca1 screening: No deficits noted. Tuberculosis screening: No symptoms or risk factors identified. Fall Risk None identified. Assessment: 12:05 General: Appears in no apparent distress. comfortable, obese, Behavior is calm, ca1 cooperative, appropriate for age. Pain: Complains of pain in right upper quadrant and right lower quadrant Pain radiates to right mid back and right low back Pain currently is 7 out of 10 on a pain scale. Pain began 1 day ago. Is continuous. Neuro: Level of Consciousness is awake, alert, obeys commands, Oriented to person, place, time, situation. Cardiovascular: Heart tones S1 S2 present Capillary refill < 3 seconds Patient's skin is warm and dry. Pulses are all present. Rhythm is regular. Respiratory: Airway is patent Respiratory effort is even, unlabored, Respiratory pattern is regular, symmetrical, Breath sounds are clear bilaterally. GI: Abdomen is round non-distended, obese, Bowel sounds present X 4 quads. Abd is soft X 4 quads Abdomen is tender to palpation in right upper quadrant and right lower quadrant Reports nausea. : Urine is cloudy. EENT: No deficits noted. No signs and/or symptoms were reported regarding the EENT system. EENT: Reports nasal congestion since 2 days ago. Derm: Skin is intact, is healthy with good turgor, Skin is pink, warm \T\ dry. Musculoskeletal: Circulation, motion, and sensation intact. Capillary refill < 3 seconds, Range of motion: intact in all extremities, Swelling present in right foot and left foot. 13:10 Reassessment: Patient appears in no apparent distress at this time. Patient and/or ca1 family updated on plan of care and expected duration. Pain level reassessed. Patient is alert, oriented x 3, equal unlabored respirations, skin warm/dry/pink. 13:59 Reassessment: Patient appears in no apparent distress at this time. Patient and/or ca1 family updated on plan of care and expected duration. Pain level reassessed. Patient is alert, oriented x 3, equal unlabored respirations, skin warm/dry/pink. 14:56 Reassessment: Patient appears in no apparent distress at this time. Patient is alert, ca1 oriented x 3, equal unlabored respirations, skin warm/dry/pink. Vital Signs: 11:36 BP 134 / 82; Pulse 82; Resp 16; Temp 97.6; Pulse Ox 97% on R/A; Weight 158.76 kg; la1 Height 5 ft. 3 in. (160.02 cm); 12:30 BP 117 / 76; Pulse 79; Resp 17 S; Pulse Ox 97% on R/A; ca1 13:10 BP 130 / 101; Pulse 80; Resp 17 S; Pulse Ox 96% on R/A; ca1 13:59 BP 145 / 93; Pulse 73; Resp 17 S; Pulse Ox 96% on R/A; ca1 14:56 BP 121 / 87; Pulse 77; Resp 17 S; Temp 98.1(O); Pulse Ox 97% ; ca1 11:36 Body Mass Index 62.00 (158.76 kg, 160.02 cm) la1 ED Course: 11:29 Patient arrived in ED. mr 11:35 Triage completed. la1 11:36 Arm band placed on left wrist. la1 11:42 [facility] snw 11:42 Grabiel Harper MD is Attending Physician. snw 11:59 Ana Solis, JOSEY is Primary Nurse. ca1 12:05 Patient has correct armband on for positive identification. Placed in gown. Bed in low ca1 position. Call light in reach. Side rails up X2. Pulse ox on. NIBP on. Warm blanket given. 12:59 Chest Single View XRAY In Process Unspecified. EDMS 13:09 Elevated right left foot. ca1 13:59 Initial lab(s) drawn, by me, sent to lab. Inserted saline lock: 22 gauge in right rv forearm, using aseptic technique. Blood collected. 14:50 No provider procedures requiring assistance completed. ca1 14:58 IV discontinued, intact, bleeding controlled, No redness/swelling at site. Pressure ca1 dressing applied. Administered Medications: 14:33 Drug: Rocephin 1 grams Route: IV; Rate: calculated rate; Site: right forearm; ca1 14:50 Follow up: Response: No adverse reaction; IV Status: Completed infusion ca1 14:38 CANCELLED (other intervention used): Phenergan 25 mg PO once snw Outcome: 14:30 Discharge ordered by . snw 14:58 Discharged to home ambulatory, with significant other. ca1 14:58 Condition: stable 14:58 Discharge instructions given to patient, Instructed on discharge instructions, follow up and referral plans. medication usage, Demonstrated understanding of instructions, follow-up care, medications, Prescriptions given X 2. 14:58 Patient left the ED. ca1 Signatures: Dispatcher [employer] EDMS Amparo Springer FNP-C MANAGER IMMUNOLOGY-Gracew Michelle DuffMagdaleno RN RN la1 Musa Chaves RN RN rv Ana Solis RN RN ca1 Corrections: (The following items were deleted from the chart) 12:31 12:05 Musculoskeletal: Circulation, motion, and sensation intact. Capillary refill < 3 ca1 seconds, Range of motion: intact in all extremities, ca1
--- NOTE | 2019-02-11 14:33 | EDPHYS ---
Physician Documentation [facility] Name: Kelle Calderón Age: 43 yrs Sex: Female : 1975 Arrival Date: 02/11/2019 Time: 11:29 Bed 23 Private MD: ED Physician Grabiel Harper HPI: 02/11 12:46 This 43 yrs old Female presents to ER via Ambulatory with complaints of snw Breathing Difficulty, Abdominal Pain, Back Pain, Headache. 12:46 The patient has shortness of breath at rest. Onset: The symptoms/episode began/occurred snw gradually, 2 day(s) ago, and became persistent. Duration: The symptoms are continuous. Associated signs and symptoms: Pertinent positives: congestion, nausea, lower back discomfort. Severity of symptoms: At their worst the symptoms were mild moderate in the emergency department the symptoms are unchanged. It is unknown whether or not the patient has had similar symptoms in the past. It is unknown whether or not the patient has recently seen a physician. 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 - Social history:: Smoking status: unknown. - Ebola Screening: : No symptoms or risks identified at this time. ROS: 12:43 Eyes: Negative for injury, pain, redness, and discharge, ENT: Negative for injury, snw pain, and discharge, + congestion, itchy eyes Neck: Negative for injury, pain, and swelling, Cardiovascular: Negative for chest pain, palpitations, and edema. 12:43 Abdomen/GI: Negative for abdominal pain, nausea, vomiting, diarrhea, and constipation, Back: Negative for injury and pain, : Negative for injury, bleeding, discharge, and swelling, MS/Extremity: Negative for injury and deformity, Skin: Negative for injury, rash, and discoloration, Neuro: Negative for headache, weakness, numbness, tingling, and seizure. 12:43 Constitutional: Positive for body aches, malaise. 12:43 Respiratory: Positive for congestion. Exam: 12:43 Head/Face: Normocephalic, atraumatic, intermittent left cheek tic/dimple. Eyes: snw Pupils equal round and reactive to light, extra-ocular motions intact. Lids and lashes normal. Conjunctiva and sclera are non-icteric and not injected. Cornea within normal limits. Periorbital areas with no swelling, redness, or edema. ENT: Nares patent. No nasal discharge, no septal abnormalities noted. Tympanic membranes are normal and external auditory canals are clear. Oropharynx with no redness, swelling, or masses, exudates, or evidence of obstruction, uvula midline. Mucous membranes moist. Neck: Trachea midline, no thyromegaly or masses palpated, and no cervical lymphadenopathy. Supple, full range of motion without nuchal rigidity, or vertebral point tenderness. No Meningismus. Chest/axilla: Normal chest wall appearance and motion. Nontender with no deformity. No lesions are appreciated. Cardiovascular: Regular rate and rhythm with a normal S1 and S2. No gallops, murmurs, or rubs. Normal PMI, no JVD. No pulse deficits. Respiratory: Lungs have equal breath sounds bilaterally, clear to auscultation and percussion. No rales, rhonchi or wheezes noted. No increased work of breathing, no retractions or nasal flaring. Back: No spinal tenderness. No costovertebral tenderness. Full range of motion. Skin: Warm, dry with normal turgor. Normal color with no rashes, no lesions, and no evidence of cellulitis. Neuro: Awake and alert, GCS 15, oriented to person, place, time, and situation. Cranial nerves II-XII grossly intact. Motor strength 5/5 in all extremities. Sensory grossly intact. Cerebellar exam normal. Normal gait. Psych: Awake, alert, with orientation to person, place and time. Behavior, mood, and affect are within normal limits. 12:43 Constitutional: The patient appears alert, awake, uncomfortable. 12:43 Abdomen/GI: Inspection: obese Bowel sounds: normal, Palpation: abdomen is soft and non-tender, in all quadrants. 12:43 Musculoskeletal/extremity: lower extremities with lymphedema, no erythema, + equal snw pulses. Vital Signs: 11:36 BP 134 / 82; Pulse 82; Resp 16; Temp 97.6; Pulse Ox 97% on R/A; Weight 158.76 kg; la1 Height 5 ft. 3 in. (160.02 cm); 12:30 BP 117 / 76; Pulse 79; Resp 17 S; Pulse Ox 97% on R/A; ca1 13:10 BP 130 / 101; Pulse 80; Resp 17 S; Pulse Ox 96% on R/A; ca1 13:59 BP 145 / 93; Pulse 73; Resp 17 S; Pulse Ox 96% on R/A; ca1 14:56 BP 121 / 87; Pulse 77; Resp 17 S; Temp 98.1(O); Pulse Ox 97% ; ca1 11:36 Body Mass Index 62.00 (158.76 kg, 160.02 cm) la1 MDM: 12:00 Patient medically screened. snw 14:31 Data reviewed: vital signs, nurses notes. Data interpreted: Pulse oximetry: on room air snw is 96 %. Interpretation: normal. Counseling: I had a detailed discussion with the patient and/or guardian regarding: the historical points, exam findings, and any diagnostic results supporting the discharge/admit diagnosis, the presence of at least one elevated blood pressure reading (>120/80) during this emergency department visit, lab results, the need for outpatient follow up, to return to the emergency department if symptoms worsen or persist or if there are any questions or concerns that arise at home. Special discussion: Based on the history and exam findings, there is no indication for further emergent testing or inpatient evaluation. I discussed with the patient/guardian the need to see the primary care provider for further evaluation of the symptoms. 02/11 11:37 Order name: Flu; Complete Time: 12:18 la1 02/11 12:01 Order name: Urine Microscopic Only; Complete Time: 12:42 snw 02/11 12:32 Order name: CBC with Diff; Complete Time: 14:14 snw 02/11 12:32 Order name: Magnesium; Complete Time: 14:28 snw 02/11 12:32 Order name: Chem 7; Complete Time: 14:28 snw 02/11 12:38 Order name: Urine Dipstick--Ancillary (enter results) eb 02/11 12:01 Order name: Urine Test (obtain specimen); Complete Time: 12:27 snw 02/11 12:01 Order name: Urine Dipstick-Ancillary (obtain specimen); Complete Time: 12:27 snw 02/11 12:32 Order name: Misc. Order: elevate lower extremities; Complete Time: 13:09 snw 02/11 12:32 Order name: Chest Single View XRAY snw 02/11 12:40 Order name: Urine Dipstick-Ancillary; Complete Time: 12:42 EDMS 02/11 12:49 Order name: Urine Culture EDMS Administered Medications: 14:33 Drug: Rocephin 1 grams Route: IV; Rate: calculated rate; Site: right forearm; ca1 14:50 Follow up: Response: No adverse reaction; IV Status: Completed infusion ca1 14:38 CANCELLED (other intervention used): Phenergan 25 mg PO once snw Disposition: 02/12 09:21 Co-signature as Attending Physician, Grabiel Harper MD I agree with the assessment and lisa plan of care. Disposition: 02/11/19 14:30 Discharged to Home. Impression: Urinary tract infection, site not specified. - Condition is Stable. - Discharge Instructions: Urinary Tract Infection, Adult, Rehydration, Adult. - Prescriptions for Augmentin 875- 125 mg Oral Tablet - take 1 tablet by ORAL route every 12 hours for 10 days; 20 tablet. promethazine 25 mg Oral Tablet - take 1 tablet by ORAL route every 6 hours As needed; 20 tablet. - Medication Reconciliation Form, Thank You Letter, Antibiotic Education, Prescription Opioid Use form. - Follow up: Emergency Department; When: As needed; Reason: Worsening of condition. Follow up: Private Physician; When: 2 - 3 days; Reason: Recheck today's complaints, Continuance of care, Re-evaluation by your physician. Signatures: Dispatcher [employer] Grabiel Ya MD MD cha Therrien, Shelly, CLAIM MANAGER-C CLAIM MANAGER-Csnw Magdaleno Cifuentes RN RN la1 Ana Solis RN RN ca1 Corrections: (The following items were deleted from the chart) 02/11 12:46 12:43 Head/Face: Normocephalic, atraumatic. Eyes: Pupils equal round and reactive to snw light, extra-ocular motions intact. Lids and lashes normal. Conjunctiva and sclera are non-icteric and not injected. Cornea within normal limits. Periorbital areas with no swelling, redness, or edema. ENT: Nares patent. No nasal discharge, no septal abnormalities noted. Tympanic membranes are normal and external auditory canals are clear. Oropharynx with no redness, swelling, or masses, exudates, or evidence of obstruction, uvula midline. Mucous membranes moist. Neck: Trachea midline, no thyromegaly or masses palpated, and no cervical lymphadenopathy. Supple, full range of motion without nuchal rigidity, or vertebral point tenderness. No Meningismus. Chest/axilla: Normal chest wall appearance and motion. Nontender with no deformity. No lesions are appreciated. Cardiovascular: Regular rate and rhythm with a normal S1 and S2. No gallops, murmurs, or rubs. Normal PMI, no JVD. No pulse deficits. Respiratory: Lungs have equal breath sounds bilaterally, clear to auscultation and percussion. No rales, rhonchi or wheezes noted. No increased work of breathing, no retractions or nasal flaring. Back: No spinal tenderness. No costovertebral tenderness. Full range of motion. Skin: Warm, dry with normal turgor. Normal color with no rashes, no lesions, and no evidence of cellulitis. Neuro: Awake and alert, GCS 15, oriented to person, place, time, and situation. Cranial nerves II-XII grossly intact. Motor strength 5/5 in all extremities. Sensory grossly intact. Cerebellar exam normal. Normal gait. Psych: Awake, alert, with orientation to person, place and time. Behavior, mood, and affect are within normal limits. snw 14:38 14:37 Phenergan 25 mg PO once ordered. snw snw 14:58 14:30 02/11/2019 14:30 Discharged to Home. Impression: Urinary tract infection, site ca1 not specified. Condition is Stable. Forms are Medication Reconciliation Form, Thank You Letter, Antibiotic Education, Prescription Opioid Use. Follow up: Emergency Department; When: As needed; Reason: Worsening of condition. Follow up: Private Physician; When: 2 - 3 days; Reason: Recheck today's complaints, Continuance of care, Re-evaluation by your physician. snw
--- NOTE | 2019-02-11 14:55 | RAD REPORT ---
EXAM DESCRIPTION: [place] Single View02/11/2019 12:59 pm CLINICAL HISTORY: Congestion COMPARISON: June 2018 FINDINGS: The lungs appear clear of acute infiltrate. The heart is normal size IMPRESSION: No acute abnormalities displayed
[2019-02-11 15:31] VITALS: BP 121/87; TEMP 98.1; O2SAT 97
== END 2019-02-11 14:58 | disposition home or self-care (01) ==
LOC: ER 11:25
DX: N39.0 Urinary tract infection, site not specified (principal); Z88.8 Allergy status to other drugs, medicaments and biological substances
CPT/HCPCS: 96365; 87088; 85025; 87086; 80048; 36415; 83735; 87804 ×2; 71045; 99284; J0696; 81003; 81015

== ENCOUNTER 2019-03-17 10:54 | Emergency (ER) | payer OTHER ==
--- NOTE | 2019-03-17 12:13 | EDPHYS ---
Physician Documentation [facility] Name: Kelle Calderón Age: 43 yrs Sex: Female : 1975 Arrival Date: 03/17/2019 Time: 10:56 Bed 12 Private MD: ED Physician Fitz Farley HPI: 03/17 11:58 This 43 yrs old Female presents to ER via Ambulatory with complaints of Sore jr8 Throat. 11:58 The patient presents with sore throat. The patient describes throat pain as scratchy. jr8 Onset: The symptoms/episode began/occurred 1 day(s) ago. Modifying factors: the symptoms are aggravated by swallowing, Patient's oral intake status: good. Associated signs and symptoms: Pertinent positives: chills, cough, flu-like symptoms, rhinorrhea. Pt reports recently watching her grandchildren who were ill with cough/congestion. Began having symptoms 6 days ago with chills and fever at days 3 and 4. Began having sore throat yesterday. . 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 - Social history:: Smoking status: Patient/guardian denies using tobacco. - Ebola Screening: : Patient denies travel to an Ebola-affected area in the 21 days before illness onset. ROS: 11:58 Constitutional: Negative for fever, chills, and weight loss, Eyes: Negative for injury, jr8 pain, redness, and discharge, Cardiovascular: Negative for chest pain, palpitations, and edema, Respiratory: Negative for shortness of breath, cough, wheezing, and pleuritic chest pain, Abdomen/GI: Negative for abdominal pain, nausea, vomiting, diarrhea, and constipation, Back: Negative for injury and pain, Neuro: Negative for headache, weakness, numbness, tingling, and seizure, Psych: Negative for depression, anxiety, suicide ideation, homicidal ideation, and hallucinations. 11:58 ENT: Positive for nasal discharge, sinus congestion, sore throat. 11:58 Neck: Positive for swollen nodes. Exam: 12:00 Constitutional: This is a well developed, well nourished patient who is awake, alert, jr8 and in no acute distress. Head/Face: Normocephalic, atraumatic. Eyes: Pupils equal round and reactive to light, extra-ocular motions intact. Lids and lashes normal. Conjunctiva and sclera are non-icteric and not injected. Cornea within normal limits. Periorbital areas with no swelling, redness, or edema. Chest/axilla: Normal chest wall appearance and motion. Nontender with no deformity. No lesions are appreciated. Cardiovascular: Regular rate and rhythm with a normal S1 and S2. No gallops, murmurs, or rubs. Normal PMI, no JVD. No pulse deficits. Respiratory: Lungs have equal breath sounds bilaterally, clear to auscultation and percussion. No rales, rhonchi or wheezes noted. No increased work of breathing, no retractions or nasal flaring. Abdomen/GI: Soft, non-tender, with normal bowel sounds. No distension or tympany. No guarding or rebound. No evidence of tenderness throughout. Skin: Warm, dry with normal turgor. Normal color with no rashes, no lesions, and no evidence of cellulitis. Neuro: Awake and alert, GCS 15, oriented to person, place, time, and situation. Cranial nerves II-XII grossly intact. Motor strength 5/5 in all extremities. Sensory grossly intact. Cerebellar exam normal. Normal gait. 12:00 ENT: Ear canal(s): are normal, TM's: fluid levels, on the left, Mouth: is normal, Posterior pharynx: Airway: normal, Tonsils: bilaterally enlarged, with erythema, Uvula: normal, midline, swelling, is not appreciated, erythema, that is mild, exudate, that is mild, peritonsillar mass, is not appreciated, pooling of secretions, is not appreciated. 12:00 Neck: External neck: tenderness, that is mild, of the right anterior aspect of neck, Lymph nodes: lymphadenopathy is appreciated, anterior cervical nodes. Vital Signs: 11:31 BP 152 / 98; Pulse 89; Resp 18; Temp 97.5; Pulse Ox 95% on R/A; Weight 161.03 kg (R); aj1 Height 5 ft. 3 in. (160.02 cm) (R); 11:31 Body Mass Index 62.88 (161.03 kg, 160.02 cm) aj1 MDM: 11:39 Patient medically screened. jr8 12:03 Data reviewed: vital signs, nurses notes, lab test result(s), and as a result, I will jr8 discharge patient. Data interpreted: Pulse oximetry: on room air is 95 %. Interpretation: normal. Counseling: I had a detailed discussion with the patient and/or guardian regarding: the historical points, exam findings, and any diagnostic results supporting the discharge/admit diagnosis, lab results, the need for outpatient follow up, a family practitioner. ED course: Pt with sore throat + cough/cold sx. No peritonsillar abscess noted, mild pharyngeal erythema. Pt tolerating PO, recent ill contacts, hx of DMII and has had sinus symptoms for greater than a week in addition to the sore throat. . 03/17 11:32 Order name: Strep; Complete Time: 12:02 [facility] 03/17 12:02 Order name: Throat Culture EDMS Administered Medications: No medications were administered Disposition: 12:40 Co-signature as Attending Physician, Fitz Farley MD. rn Disposition: 03/17/19 12:11 Discharged to Home. Impression: Acute pharyngitis, Acute maxillary sinusitis. - Condition is Stable. - Discharge Instructions: Pharyngitis, Sinusitis, Adult, Strep Throat. - Prescriptions for Amoxicillin 875 mg Oral Tablet - take 1 tablet by ORAL route every 12 hours for 7 days; 14 tablet. - Medication Reconciliation Form, Thank You Letter, Antibiotic Education form. - Follow up: Private Physician; When: As needed; Reason: Recheck today's complaints, Re-evaluation by your physician. - Problem is new. - Symptoms have improved. Signatures: Dispatcher [employer] EDMS Yee Parrish RN RN aj1 Fitz Farley MD MD rn Calderon, Audri, RN RN aa5 Samuel Teague PA PA jr8 Corrections: (The following items were deleted from the chart) 12:11 12:03 ED course: Pt with sore throat + cough/cold sx. No peritonsillar abscess noted, jr8 mild pharyngeal erythema. Pt tolerating PO, recent ill contacts. Discussed throat culture and safe us of OTC symptomatic care. Pt to FU with PCP or return to ED with worsening of symptoms. jr8 12:36 12:11 03/17/2019 12:11 Discharged to Home. Impression: Acute pharyngitis; Acute aa5 maxillary sinusitis. Condition is Stable. Forms are Medication Reconciliation Form, Thank You Letter, Antibiotic Education, Prescription Opioid Use. Follow up: Private Physician; When: As needed; Reason: Recheck today's complaints, Re-evaluation by your physician. Problem is new. Symptoms have improved. jr8
--- NOTE | 2019-03-17 12:13 | ER ---
Nurse's Notes [facility] Name: Kelle Calderón Age: 43 yrs Sex: Female : 1975 Arrival Date: 03/17/2019 Time: 10:56 Bed 12 Private MD: Diagnosis: Acute pharyngitis;Acute maxillary sinusitis Presentation: 03/17 11:27 Presenting complaint: Patient states: "I started with sinus drainage but since last aj1 night my throat got really just hurting all night." Reports fever 2 days ago, but none since then. Reports cough and congestion. Transition of care: patient was not received from another setting of care. Onset of symptoms was 2018. Risk Assessment: Do you want to hurt yourself or someone else? Patient reports no desire to harm self or others. Initial Sepsis Screen: Does the patient meet any 2 criteria? No. Patient's initial sepsis screen is negative. Does the patient have a suspected source of infection? No. Patient's initial sepsis screen is negative. Care prior to arrival: None. 11:27 Method Of Arrival: Ambulatory aj1 11:27 Acuity: SIMRAN 4 aj1 Triage Assessment: 11:31 General: Appears in no apparent distress. comfortable, Behavior is calm, cooperative, aj1 appropriate for age. Pain: Complains of pain in left aspect of posterior pharynx and right aspect of posterior pharynx Pain currently is 7 out of 10 on a pain scale. EENT: Parent/caregiver reports the patient having nasal congestion nasal discharge sore throat. Neuro: Level of Consciousness is awake, alert, obeys commands. Cardiovascular: Patient's skin is warm and dry. Respiratory: Airway is patent Respiratory effort is even, unlabored, Respiratory pattern is regular, symmetrical. GI: No signs and/or symptoms were reported involving the gastrointestinal system. : No signs and/or symptoms were reported regarding the genitourinary system. Derm: Skin is pink, warm \\T\\ dry. normal. Musculoskeletal: Circulation, motion, and sensation intact. 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 - Social history:: Smoking status: Patient/guardian denies using tobacco. - Ebola Screening: : Patient denies travel to an Ebola-affected area in the 21 days before illness onset. Screenin:32 Abuse screen: Denies threats or abuse. Denies injuries from another. Nutritional aj1 screening: No deficits noted. Tuberculosis screening: No symptoms or risk factors identified. Fall Risk None identified. Assessment: 11:32 Reassessment: see triage assessment. aj1 12:36 Reassessment: Patient is alert, oriented x 3, equal unlabored respirations, skin aa5 warm/dry/pink. Vital Signs: 11:31 BP 152 / 98; Pulse 89; Resp 18; Temp 97.5; Pulse Ox 95% on R/A; Weight 161.03 kg (R); aj1 Height 5 ft. 3 in. (160.02 cm) (R); 11:31 Body Mass Index 62.88 (161.03 kg, 160.02 cm) aj1 ED Course: 10:56 Patient arrived in ED. as 11:30 Triage completed. aj1 11:31 Arm band placed on Patient placed in an exam room. aj1 11:32 Patient has correct armband on for positive identification. Bed in low position. Call aj1 light in reach. 11:32 No provider procedures requiring assistance completed. aj1 11:38 [facility] jr8 11:38 Fitz Farley MD is Attending Physician. jr8 12:36 Patient did not have IV access during this emergency room visit. aa5 Administered Medications: No medications were administered Outcome: 12:11 Discharge ordered by . jr8 12:35 Discharged to home ambulatory, with significant other. aa5 12:35 Condition: stable 12:35 Discharge instructions given to patient, Instructed on discharge instructions, follow up and referral plans. medication usage, Demonstrated understanding of instructions, follow-up care, medications, Prescriptions given X 1. 12:36 Patient left the ED. aa5 Signatures: Yee Parrish RN RN aj1 Alisa Flannery Audri, RN RN aa5 Samuel Teague PA PA jr8 Corrections: (The following items were deleted from the chart) 19:12 12:36 Yennifer Isidro RN is Primary Nurse. aa5 aa5
[2019-03-17 13:17] VITALS: BP 152/98; TEMP 97.5; O2SAT 95
== END 2019-03-17 12:36 | disposition home or self-care (01) ==
LOC: ER 10:54
DX: J02.9 Acute pharyngitis, unspecified (principal); J01.00 Acute maxillary sinusitis, unspecified; Z88.8 Allergy status to other drugs, medicaments and biological substances
CPT/HCPCS: 87070; 87081; 99282

== ENCOUNTER 2019-03-17 23:14 | Emergency (ER) | payer OTHER ==
[2019-03-18] MEDS ORDERED: METHYLPREDNISOLONE 125 MG INJ ONE (01:50)
[2019-03-18] MEDS ORDERED: FAMOTIDINE 20 MG TAB ONE (01:50)
[2019-03-18] MEDS ORDERED: DIPHENHYDRAMINE 12.5MG/5ML LIQ ONE (01:50)
--- NOTE | 2019-03-18 02:11 | ER ---
Nurse's Notes [facility] Name: Kelle Calderón Age: 43 yrs Sex: Female : 1975 Arrival Date: 03/17/2019 Time: 23:17 Bed 14 Private MD: Diagnosis: allergic reaction Presentation: 03/18 00:02 Presenting complaint: Patient states: that she was seen her yesterday am and given an antibiotic. She took the med at 1600 and then at 1830 she noticed a rash on her arms. Its now on all her exts and abd. Rash is itchy. Transition of care: patient was not received from another setting of care. Onset: The symptoms/episode began/occurred gradually. Anaphylaxis evaluation, the patient reports or I have noted the following symptoms which indicate a significant risk of anaphylaxis:. Onset of symptoms was March 17, 2019 at 18:30. Risk Assessment: Do you want to hurt yourself or someone else? Patient reports no desire to harm self or others. Initial Sepsis Screen: Does the patient meet any 2 criteria? HR > 90 bpm. Yes Does the patient have a suspected source of infection? No. Patient's initial sepsis screen is negative. Care prior to arrival: Medication(s) given: Motrin, last at 2200. 00:02 Method Of Arrival: Ambulatory 00:02 Acuity: SIMRAN 4 Triage Assessment: 00:07 General: Appears uncomfortable, obese, Behavior is calm, cooperative, appropriate for age. Pain: Complains of pain in right arm, right leg and left leg Pain currently is 9 out of 10 on a pain scale. Pain began gradually, Is continuous. EENT: No deficits noted. Neuro: Level of Consciousness is awake, alert, obeys commands, Oriented to person, place, time, situation, Appropriate for age. Cardiovascular: No deficits noted. Respiratory: No deficits noted. GI: No deficits noted. : No deficits noted. Derm: Skin is pink, warm \T\ dry. Rash noted that is itchy, red, raised, urticaria, on right arm, right leg and left leg. 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 - Social history:: Smoking status: Patient/guardian denies using tobacco, Patient/guardian denies using alcohol, street drugs. - Ebola Screening: : Patient negative for fever greater than or equal to 101.5 degrees Fahrenheit, and additional compatible Ebola Virus Disease symptoms Patient denies exposure to infectious person Patient denies travel to an Ebola-affected area in the 21 days before illness onset. Screenin:00 Abuse screen: Denies threats or abuse. Nutritional screening: No deficits noted. jb4 Tuberculosis screening: No symptoms or risk factors identified. Fall Risk None identified. Assessment: 01:00 General: Appears in no apparent distress. comfortable, Behavior is calm, cooperative, jb4 appropriate for age. Pain: Denies pain. Neuro: Level of Consciousness is awake, alert, obeys commands, Oriented to person, place, time, situation. Cardiovascular: Patient's skin is warm and dry. Respiratory: Airway is patent Respiratory effort is even, unlabored, Respiratory pattern is regular, symmetrical. GI: No deficits noted. No signs and/or symptoms were reported involving the gastrointestinal system. : No deficits noted. No signs and/or symptoms were reported regarding the genitourinary system. EENT: No deficits noted. No signs and/or symptoms were reported regarding the EENT system. Derm: Skin Skin is pink, warm \T\ dry. Musculoskeletal: Circulation, motion, and sensation intact. Range of motion: intact in all extremities. 02:00 Reassessment: Patient appears in no apparent distress at this time. Patient and/or jb4 family updated on plan of care and expected duration. Pain level reassessed. Patient is alert, oriented x 3, equal unlabored respirations, skin warm/dry/pink. 02:36 Reassessment: Patient appears in no apparent distress at this time. Patient and/or jb4 family updated on plan of care and expected duration. Pain level reassessed. Patient is alert, oriented x 3, equal unlabored respirations, skin warm/dry/pink. Pt verbalized understanding of d/c and follow up instrucionts. Vital Signs: 00:05 BP 145 / 93; Pulse 95; Resp 16; Temp 98.8(O); Pulse Ox 99% on R/A; Weight 161.03 kg (R); Height 5 ft. 3 in. (160.02 cm) (R); Pain 9/10; 02:30 BP 118 / 68; Pulse 88; Resp 16; Pulse Ox 96% on R/A; jb4 00:05 Body Mass Index 62.88 (161.03 kg, 160.02 cm) ED Course: 03/17 23:17 Patient arrived in ED. ds1 03/18 00:04 Triage completed. 00:06 Arm band placed on Patient placed in waiting room, Patient notified of wait time. 01:00 Patient has correct armband on for positive identification. Placed in gown. Bed in low jb4 position. Call light in reach. Side rails up X 1. Pulse ox on. NIBP on. 01:05 Salvador House MD is Attending Physician. tw4 01:43 Deuce Mansfield, RN is Primary Nurse. jb4 02:39 No provider procedures requiring assistance completed. Patient did not have IV access jb4 during this emergency room visit. Administered Medications: 02:09 Drug: Benadryl 12.5 mg Route: PO; jb4 02:40 Follow up: Response: No adverse reaction; Marked relief of symptoms jb4 02:09 Drug: Pepcid 20 mg Route: PO; jb4 02:39 Follow up: Response: No adverse reaction jb4 02:10 Drug: SOLU-Medrol 125 mg Route: IM; Site: right gluteus; jb4 02:40 Follow up: Response: No adverse reaction jb4 Outcome: 02:11 Discharge ordered by . tw4 02:39 Discharged to home ambulatory. jb4 02:39 Condition: stable 02:39 Discharge instructions given to patient, Instructed on discharge instructions, follow up and referral plans. medication usage, Demonstrated understanding of instructions, follow-up care, medications, Prescriptions given X 2. 02:42 Patient left the ED. jb4 Signatures: Kiara Ornelas RN RN Kimmy Holman ds1 Deuce Mansfield RN RN jb4 [place], [place], MD MD tw4
--- NOTE | 2019-03-18 02:11 | EDPHYS ---
Physician Documentation [facility] Name: Kelle Calderón Age: 43 yrs Sex: Female : 1975 Arrival Date: 03/17/2019 Time: 23:17 Bed 14 Private MD: ELIO Physician Salvador House HPI: 03/18 01:47 This 43 yrs old Female presents to ER via Ambulatory with complaints of tw4 Allergic Reaction. 01:47 The patient presents with rash. Onset: The symptoms/episode began/occurred today. tw4 Associated signs and symptoms: The patient has no apparent associated signs or symptoms. Possible causes: The patient has no known obvious cause for the symptoms. At home the patient or guardian has treated the symptoms with nothing. The patient has not experienced similar symptoms in the past. 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 - Social history:: Smoking status: Patient/guardian denies using tobacco, Patient/guardian denies using alcohol, street drugs. - Ebola Screening: : Patient negative for fever greater than or equal to 101.5 degrees Fahrenheit, and additional compatible Ebola Virus Disease symptoms Patient denies exposure to infectious person Patient denies travel to an Ebola-affected area in the 21 days before illness onset. ROS: 01:47 Constitutional: Negative for fever, chills, and weight loss, Eyes: Negative for injury, tw4 pain, redness, and discharge, Cardiovascular: Negative for chest pain, palpitations, and edema, Respiratory: Negative for shortness of breath, cough, wheezing, and pleuritic chest pain, Abdomen/GI: Negative for abdominal pain, nausea, vomiting, diarrhea, and constipation, Back: Negative for injury and pain, MS/Extremity: Negative for injury and deformity. 01:47 Neuro: Negative for headache, weakness, numbness, tingling, and seizure, Psych: Negative for depression, anxiety, suicide ideation, homicidal ideation, and hallucinations. 01:47 Skin: Positive for rash. Exam: 01:47 Constitutional: This is a well developed, well nourished patient who is awake, alert, tw4 and in no acute distress. Head/Face: Normocephalic, atraumatic. Chest/axilla: Normal chest wall appearance and motion. Nontender with no deformity. No lesions are appreciated. Cardiovascular: Regular rate and rhythm with a normal S1 and S2. No gallops, murmurs, or rubs. Normal PMI, no JVD. No pulse deficits. Respiratory: Lungs have equal breath sounds bilaterally, clear to auscultation and percussion. No rales, rhonchi or wheezes noted. No increased work of breathing, no retractions or nasal flaring. Abdomen/GI: Soft, non-tender, with normal bowel sounds. No distension or tympany. No guarding or rebound. No evidence of tenderness throughout. Back: No spinal tenderness. No costovertebral tenderness. Full range of motion. MS/ Extremity: Pulses equal, no cyanosis. Neurovascular intact. Full, normal range of motion. Neuro: Awake and alert, GCS 15, oriented to person, place, time, and situation. Cranial nerves II-XII grossly intact. Motor strength 5/5 in all extremities. Sensory grossly intact. Cerebellar exam normal. Normal gait. Vital Signs: 00:05 BP 145 / 93; Pulse 95; Resp 16; Temp 98.8(O); Pulse Ox 99% on R/A; Weight 161.03 kg fc (R); Height 5 ft. 3 in. (160.02 cm) (R); Pain 9/10; 02:30 BP 118 / 68; Pulse 88; Resp 16; Pulse Ox 96% on R/A; jb4 00:05 Body Mass Index 62.88 (161.03 kg, 160.02 cm) MDM: 01:05 Patient medically screened. tw4 01:47 Data reviewed: vital signs, nurses notes. Counseling: I had a detailed discussion with [facility] the patient and/or guardian regarding: the historical points, exam findings, and any diagnostic results supporting the discharge/admit diagnosis. Special discussion: I discussed with the patient/guardian in detail that at this point there is no indication for admission to the hospital. It is understood, however, that if the symptoms persist or worsen the patient needs to return immediately for re-evaluation. Administered Medications: 02:09 Drug: Benadryl 12.5 mg Route: PO; jb4 02:40 Follow up: Response: No adverse reaction; Marked relief of symptoms jb4 02:09 Drug: Pepcid 20 mg Route: PO; jb4 02:39 Follow up: Response: No adverse reaction jb4 02:10 Drug: SOLU-Medrol 125 mg Route: IM; Site: right gluteus; jb4 02:40 Follow up: Response: No adverse reaction jb4 Disposition: 03/18/19 02:11 Discharged to Home. Impression: allergic reaction. - Condition is Stable. - Discharge Instructions: Allergies, Adult. - Prescriptions for Medrol (Vignesh) 4 mg Oral Tablets, Dose Pack - take 1 tablet by ORAL route as directed - follow package instructions; 1 packet. Pepcid 20 mg Oral Tablet - take 1 tablet by ORAL route once daily; 20 tablet. - Medication Reconciliation Form, Thank You Letter, Antibiotic Education, Prescription Opioid Use form. - Follow up: Private Physician; When: Upon discharge from the Emergency Department; Reason: If symptoms return, Recheck today's complaints, Continuance of care. - Problem is new. - Symptoms have improved. Signatures: Kiara Ornelas RN RN Deuce Mansfield RN RN jb4 Salvador House MD MD tw4 Corrections: (The following items were deleted from the chart) 02:42 02:11 03/18/2019 02:11 Discharged to Home. Impression: allergic reaction. Condition is jb4 Stable. Forms are Medication Reconciliation Form, Thank You Letter, Antibiotic Education, Prescription Opioid Use. Follow up: Private Physician; When: Upon discharge from the Emergency Department; Reason: If symptoms return, Recheck today's complaints, Continuance of care. Problem is new. Symptoms have improved. tw4
[2019-03-18 06:01] VITALS: TEMP 98.8
[2019-03-18 06:02] VITALS: BP 118/68; O2SAT 96
== END 2019-03-18 02:42 | disposition home or self-care (01) ==
LOC: ER 23:14
DX: T78.40XA Allergy, unspecified, initial encounter (principal); X58.XXXA Exposure to other specified factors, initial encounter; Z88.8 Allergy status to other drugs, medicaments and biological substances
CPT/HCPCS: 96372; 99283; J2930

== ENCOUNTER 2019-05-09 02:23 | Inpatient (IN) | payer OTHER ==
--- OUTSIDE RECORDS SUMMARY | 2019-05-09 02:26 | XMS REPORT ---
:1975 Author Organization [facility] Address [address] [place] [address] Care Team Providers Name Role Phone MAYRA CHEUNG Unavailable Unavailable MICKEY RESTREPO Unavailable Unavailable Problems This patient has no known problems. Allergies, Adverse Reactions, Alerts This patient has no known allergies or adverse reactions. Medications This patient has no known medications. Encounters Start End Encounter Admission Attending Care Care Encounter Date/Time Date/Time Type Type Clinicians Facility Department ID 2018-09-27 2018-09-27 Outpatient [facility] 7500 07:11:00 07:11:00 Results Test Description Test Time Test Comments Text Results Atomic Results Result Comments RAD, CHEST, 2 2018-08-21 15:49:00 Reason for FINAL REPORT PATIENT VIEWS exam:->coughShould this be ID: [id number] Chest, performed at the PA and lateral. bedside?->No History: Cough. Comparison: 12/07/2017. Discussion: Mild cardiomegaly. The lungs are clear without evidence of consolidation or effusion. There are no acute osseous abnormalities. The soft tissues are unremarkable. IMPRESSION: No acute cardiopulmonary abnormality. Signed: Joseph Vang MDReport Verified Date/Time: 08/21/2018 15:49:59 Reading Location: [facility] Mammo Reading Room E CULTURE 2017-12-10 13:30:00 Test Item Value Reference Range Comments CULTURE (BEAKER) (test amed=4683) No growth POCT-GLUCOSE [id number] 08:21:00 Test Item Value Reference Range Comments POC-GLUCOSE METER (BEAKER) 99 mg/dL 70-110 TESTED AT [address] (test cywr=6083) [facility] [address] POCT-GLUCOSE [id number] 06:14:00 Test Item Value Reference Range Comments POC-GLUCOSE METER (BEAKER) 105 mg/dL 70-[address] [facility] [address] [facility] (test rrvx=0722) [facility] [address] BASIC METABOLIC [id number] 05:56:00 Test Item Value Reference Range Comments SODIUM (BEAKER) (test 140 meq/L 136-145 ulqo=255) POTASSIUM (BEAKER) (test 3.9 meq/L 3.5-5.1 bqar=054) CHLORIDE (BEAKER) (test 105 meq/L 98-107 iypl=985) CO2 (BEAKER) (test 28 meq/L 22-29 kihk=722) BLOOD UREA NITROGEN 11 mg/dL 7-21 (BEAKER) (test cqwb=280) CREATININE (BEAKER) (test 0.62 mg/dL 0.57-1.25 afev=117) GLUCOSE RANDOM (BEAKER) 107 mg/dL 70-105 (test vfot=298) CALCIUM (BEAKER) (test 8.8 mg/dL 8.4-10.2 eulk=831) EGFR (BEAKER) (test 106 mL/min/1.73 sq m ESTIMATED GFR IS NOT zszx=4595) ACCURATE CREATININE CLEARANCE IN PREDICTING GLOMERULAR FILTRATION RATE. ESTIMATED GFR IS NOT APPLICABLE FOR DIALYSIS PATIENTS. CBC W/PLT COUNT & AUTO [id number] 05:15:00 Test Item Value Reference Range Comments WHITE BLOOD CELL COUNT (BEAKER) (test gzmf=546) 6.7 K/ L 3.5-10.5 RED BLOOD CELL COUNT (BEAKER) (test wlrn=187) 4.08 M/ L 3.93-5.22 HEMOGLOBIN (BEAKER) (test tcje=510) 11.4 GM/DL 11.2-15.7 HEMATOCRIT (BEAKER) (test ndwo=707) 37.6 % 34.1-44.9 MEAN CORPUSCULAR VOLUME (BEAKER) (test dmit=149) 92.2 fL 79.4-94.8 MEAN CORPUSCULAR HEMOGLOBIN (BEAKER) (test 27.9 pg 25.6-32.2 gzjw=770) MEAN CORPUSCULAR HEMOGLOBIN CONC (BEAKER) (test 30.3 GM/DL 32.2-35.5 hiwy=637) RED CELL DISTRIBUTION WIDTH (BEAKER) (test 14.6 % 11.7-14.4 dmhw=894) PLATELET COUNT (BEAKER) (test caae=187) 192 K/CU MM 150-450 MEAN PLATELET VOLUME (BEAKER) (test utax=683) 11.9 fL 9.4-12.3 NUCLEATED RED BLOOD CELLS (BEAKER) (test 0 /100 WBC 0-0 ytei=856) NEUTROPHILS RELATIVE PERCENT (BEAKER) (test 69 % nlyo=212) LYMPHOCYTES RELATIVE PERCENT (BEAKER) (test 25 % anfn=477) MONOCYTES RELATIVE PERCENT (BEAKER) (test 5 % qedl=169) EOSINOPHILS RELATIVE PERCENT (BEAKER) (test 2 % rxzr=513) BASOPHILS RELATIVE PERCENT (BEAKER) (test 0 % idtx=404) NEUTROPHILS ABSOLUTE COUNT (BEAKER) (test 4.59 K/ L 1.56-6.13 lzwc=203) LYMPHOCYTES ABSOLUTE COUNT (BEAKER) (test 1.65 K/ L 1.18-3.74 naiz=506) MONOCYTES ABSOLUTE COUNT (BEAKER) (test 0.30 K/ L 0.24-0.36 rebt=195) EOSINOPHILS ABSOLUTE COUNT (BEAKER) (test 0.11 K/ L 0.04-0.36 aror=241) BASOPHILS ABSOLUTE COUNT (BEAKER) (test 0.01 K/ L 0.01-0.08 fxtn=131) IMMATURE GRANULOCYTES-RELATIVE PERCENT (BEAKER) 0 % 0-1 (test mxzt=3869) POCT-GLUCOSE [id number] 00:23:00 Test Item Value Reference Range Comments POC-GLUCOSE METER (BEAKER) 111 mg/dL 70-[address] [facility] [address] [place] [address] (test gmzw=9860) [facility] [address] MR, MRA, BRAIN, WITHOUT [id number] 20:13:00Reason for exam:-> Ischemic Stroke EvaluationFINAL REPORT MRA Head CLINICAL HISTORY: Stroke TECHNIQUE: MRA of the head utilizing 3-D jkch-gu-vvwirt technique, with 3-D reconstructions. COMPARISON: None FINDINGS: There is noevidence of intracranial aneurysm, focal stenosis, or major branch vessel occlusion. There is a origin of the right posterior cerebral artery. IMPRESSION: No evidence for a major tazlina of Willisproximal branch vessel occlusion. MRA Neck CLINICAL HISTORY: Stroke TECHNIQUE: MRA of the neck utilizing 2-D and 3-D ivje-tn-lhbbyd technique, with 3-D reconstructions. COMPARISON: None FINDINGS: Thecarotid arteries in the neck are patent including their bifurcations. There is antegrade flow in the vertebral arteries in the neck. IMPRESSION: No evidence of hemodynamically significant stenosis in the cervical carotid or vertebral arteries by NASCET criteria. Signed: Madeleine Macias Verified Date/Time: 12/08/2017 20:13:50 Reading Location: [facility] Radiology Reading Room MR, MRA, NECK, WITHOUT IV [id number] 20:13: 00Reason for exam:->Ischemic Stroke EvaluationFINAL REPORT MRA Head CLINICAL HISTORY: Stroke TECHNIQUE: MRA of the head utilizing 3-D hntm-jv-gcqwzq technique, with 3-D reconstructions. COMPARISON: None FINDINGS: There is noevidence of intracranial aneurysm, focal stenosis, or major branch vessel occlusion. There is a origin of the right posterior cerebral artery. IMPRESSION: No evidence for a major tazlina of Willisproximal branch vessel occlusion. MRA Neck CLINICAL HISTORY: Stroke TECHNIQUE: MRA of the neck utilizing 2-D and 3-D muvf-wp-ksqypv technique, with 3-D reconstructions. COMPARISON: None FINDINGS: Thecarotid arteries in the neck are patent including their bifurcations. There is antegrade flow in the vertebral arteries in the neck. IMPRESSION: No evidence of hemodynamically significant stenosis in the cervical carotid or vertebral arteries by NASCET criteria. Signed: Madeleine Macias Verified Date/Time: 12/08/2017 20:13: 50 Reading Location: [facility] Radiology Reading Room MR, BRAIN, WITHOUT [id number] 20:02:00Reason for exam:->StrokeWhat is the patient's sedation [...] infarct , hemorrhage, or hydrocephalus. Signed: Madeleine Macias MDReport Verified Date/ Time: 12/08/2017 20:02:46 Reading Location: [facility] Radiology Reading Room 08:02 PMPOCT-GLUCOSE [id number] 15:23:00 Test Item Value Reference Range Comments POC-GLUCOSE METER (BEAKER) 106 mg/dL 70-110 TESTED AT [address] (test znek=3482) [place] [address] HEMOGLOBIN [id number] 11:57:00 Test Item Value Reference Range Comments HEMOGLOBIN A1C (BEAKER) (test blaz=681) 6.6 % 4.3-6.1 FastingTROPONIN [id number] 09:50:00 Test Item Value Reference Range Comments TROPONIN I (BEAKER) (test wcau=426) < ng/mL 0.00-0.03 Troponin I (TnI) levels [...] acidosis, acute neurological disease, and persistent tachyarrhythmia.POCT-GLUCOSE [id number] 06:23:00 Test Item Value Reference Range Comments POC-GLUCOSE METER (BEAKER) 110 mg/dL 70-110 TESTED AT [address] (test tzko=8883) [place] [address] POCT-GLUCOSE [id number] 06:15:00 Test Item Value Reference Range Comments POC-GLUCOSE METER (BEAKER) 149 mg/dL 70-110 TESTED AT [address] (test ufzo=8826) [place] [address] VITAMIN B12 AND [id number] 05:50:00 Test Item Value Reference Range Comments VITAMIN B12 (BEAKER) (test srdb=636) 688 pg/mL 213-816 FOLATE (BEAKER) (test ziea=082) 12.1 ng/mL >=7.0 TSH/FREE T4 IF [id number] 05:29:00 Test Item Value Reference Range Comments THYROID STIMULATING HORMONE (BEAKER) (test 0.66 uIU/mL 0.35-4.94 cgfr=745) BASIC METABOLIC [id number] 05:11:00 Test Item Value Reference Range Comments SODIUM (BEAKER) (test 140 meq/L 136-145 ofjz=079) POTASSIUM (BEAKER) (test 4.3 meq/L 3.5-5.1 Specimen slightly brkf=279) hemolyzed CHLORIDE (BEAKER) (test 105 meq/L 98-107 jphs=813) CO2 (BEAKER) (test 27 meq/L 22-29 cyfz=595) BLOOD UREA NITROGEN 8 mg/dL 7-21 (BEAKER) (test ioah=375) CREATININE (BEAKER) (test 0.67 mg/dL 0.57-1.25 Specimen slightly vanx=292) hemolyzed GLUCOSE RANDOM (BEAKER) 136 mg/dL 70-105 (test puln=546) CALCIUM (BEAKER) (test 8.7 mg/dL 8.4-10.2 qdin=394) EGFR (BEAKER) (test 97 mL/min/1.73 sq m ESTIMATED GFR IS NOT ujyy=8742) ACCURATE CREATININE CLEARANCE IN PREDICTING GLOMERULAR FILTRATION RATE. ESTIMATED GFR IS NOT APPLICABLE FOR DIALYSIS PATIENTS. FastingLIPID [id number] 05:11:00 Test Item Value Reference Range Comments TRIGLYCERIDES (BEAKER) (test 83 mg/dL Specimen slightly hemolyzed exhy=939) CHOLESTEROL (BEAKER) (test 140 mg/dL Specimen slightly hemolyzed mrkp=896) HDL CHOLESTEROL (BEAKER) (test 38 mg/dL cogl=474) LDL CHOLESTEROL CALCULATED 85 mg/dL (BEAKER) (test ihzm=822) Triglyceride Reference Range: Low Risk <150 Borderline 150- 199 High Risk 200-499 Very High Risk >=500Cholesterol Reference Range: Low Risk <200 Borderline 200-239 High Risk > 240HDL Cholesterol Reference Range: Low Risk >=60 High Risk <40LDL Cholesterol Reference Range: Optimal <100 Near Optimal 100-129 Borderline 130-159 High 160-189 Very High >=190 FastingRAPID DRUG SCREEN, [id number] 04:34:00 Test Item Value Reference Range Comments BARBITURATE URINE (BEAKER) (test lkfs=015) Negative Negative BENZODIAZEPINE SCREEN URINE (BEAKER) (test Negative Negative knxr=477) COCAINE (METAB.) SCREEN (BEAKER) (test gstw=4755) Negative Negative METHADONE SCREEN (BEAKER) (test aipj=6595) Negative Negative OPIATE SCREEN URINE (BEAKER) (test yiej=617) Negative Negative CANNABINOID SCREEN URINE (BEAKER) (test xrdp=138) Negative Negative AMPH/METHAMPH SCREEN (BEAKER) (test qscq=5286) Negative Negative PHENCYCLIDINE SCREEN URINE (BEAKER) (test mbyu=291) Negative Negative OXYCODONE SCREEN URINE (BEAKER) (test mrds=9628) Negative Negative DRUG CUTOFF CONC.Cocaine 300 ng/mL Cannabinoid 50 ng/mL Benzodiazepine 200 ng/mLBarbiturate 200 ng/ mLPhencyclidine 25 ng/mLOpiate 300 ng/mLMethadone 300 ng/mLAmphetamine/ 1000 ng/mL MethamphetamineOxycodone 300 ng/mLThis assay provides an unconfirmed qualitative test result for the clinical management of patients in emergency situations. Chain of custody not maintained. Some ffdx-uwo-qxqqhnq medications, as well as adulterants, may cause inaccurate results. Clinical correlation should be applied. A more comprehensive drug screen or confirmation of a detected drug may be performed upon request.URINALYSIS W/ [id number] 04:09:00 Test Item Value Reference Range Comments COLOR (BEAKER) (test vydz=842) Yellow CLARITY (BEAKER) (test dvzc=252) Clear SPECIFIC GRAVITY UA (BEAKER) (test 1.039 1.001-1.035 lkif=914) PH UA (BEAKER) (test tdss=148) 5.5 5.0-8.0 PROTEIN UA (BEAKER) (test 10 mg/dL Negative ynvc=002) GLUCOSE UA (BEAKER) (test Negative Negative wrjy=182) KETONES UA (BEAKER) (test Negative Negative fwrx=348) BILIRUBIN UA (BEAKER) (test Negative Negative pnkk=637) BLOOD UA (BEAKER) (test uhnj=274) Small Negative NITRITE UA (BEAKER) (test Negative Negative dlef=935) LEUKOCYTE ESTERASE UA (BEAKER) Negative Negative (test biwm=260) UROBILINOGEN UA (BEAKER) (test 0.2 mg/dL 0.2-1.0 qplx=631) RBC UA (BEAKER) (test ldop=924) 1 /HPF WBC UA (BEAKER) (test hgmk=542) < /HPF MUCUS (BEAKER) (test oyev=5665) Occasional SQUAMOUS EPITHELIAL (BEAKER) (test < /HPF xkpp=849) CRYSTALS, URINE (BEAKER) (test Rare dbfb=5273) SOURCE(BEAKER) (test wzdn=6252) Urine, Sterile Collection CBC W/PLT COUNT & AUTO [id number] 03:54:00 Test Item Value Reference Range Comments WHITE BLOOD CELL COUNT (BEAKER) (test spml=543) 7.2 K/ L 3.5-10.5 RED BLOOD CELL COUNT (BEAKER) (test agyp=314) 4.10 M/ L 3.93-5.22 HEMOGLOBIN (BEAKER) (test yzdp=165) 11.6 GM/DL 11.2-15.7 HEMATOCRIT (BEAKER) (test ievb=318) 37.5 % 34.1-44.9 MEAN CORPUSCULAR VOLUME (BEAKER) (test ojbg=370) 91.5 fL 79.4-94.8 MEAN CORPUSCULAR HEMOGLOBIN (BEAKER) (test 28.3 pg 25.6-32.2 ysnk=946) MEAN CORPUSCULAR HEMOGLOBIN CONC (BEAKER) (test 30.9 GM/DL 32.2-35.5 sxcz=065) RED CELL DISTRIBUTION WIDTH (BEAKER) (test 14.6 % 11.7-14.4 ppsg=310) PLATELET COUNT (BEAKER) (test zxlg=877) 194 K/CU MM 150-450 MEAN PLATELET VOLUME (BEAKER) (test uzcf=821) 11.7 fL 9.4-12.3 NUCLEATED RED BLOOD CELLS (BEAKER) (test 0 /100 WBC 0-0 qwsc=937) NEUTROPHILS RELATIVE PERCENT (BEAKER) (test 73 % epio=463) LYMPHOCYTES RELATIVE PERCENT (BEAKER) (test 21 % ldjb=352) MONOCYTES RELATIVE PERCENT (BEAKER) (test 4 % ehyg=174) EOSINOPHILS RELATIVE PERCENT (BEAKER) (test 2 % hdhj=162) BASOPHILS RELATIVE PERCENT (BEAKER) (test 0 % ofie=607) NEUTROPHILS ABSOLUTE COUNT (BEAKER) (test 5.22 K/ L 1.56-6.13 cqtu=248) LYMPHOCYTES ABSOLUTE COUNT (BEAKER) (test 1.47 K/ L 1.18-3.74 wayu=816) MONOCYTES ABSOLUTE COUNT (BEAKER) (test 0.31 K/ L 0.24-0.36 axsd=349) EOSINOPHILS ABSOLUTE COUNT (BEAKER) (test 0.13 K/ L 0.04-0.36 qbvd=270) BASOPHILS ABSOLUTE COUNT (BEAKER) (test 0.01 K/ L 0.01-0.08 rfiy=298) IMMATURE GRANULOCYTES-RELATIVE PERCENT (BEAKER) 0 % 0-1 (test efxq=7149) TROPONIN [id number] 23:56:00 Test Item Value Reference Range Comments TROPONIN I (BEAKER) (test ivso=403) < ng/mL 0.00-0.03 Troponin I (TnI) levels [...] acute neurological disease, and persistent tachyarrhythmia.HEPATIC FUNCTION [id number] 23:49: 00 Test Item Value Reference Range Comments TOTAL PROTEIN (BEAKER) (test vbvs=866) 6.8 gm/dL 6.0-8.3 ALBUMIN (BEAKER) (test cwak=6602) 3.7 g/dL 3.5-5.0 BILIRUBIN TOTAL (BEAKER) (test ugpp=031) 0.4 mg/dL 0.2-1.2 BILIRUBIN DIRECT (BEAKER) (test wtfj=173) 0.2 mg/dL 0.1-0.5 ALKALINE PHOSPHATASE (BEAKER) (test zmbq=313) 75 U/L 40-150 AST (SGOT) (BEAKER) (test meoo=705) 30 U/L 5-34 ALT (SGPT) (BEAKER) (test deuu=146) 17 U/L 6-55 PROTHROMBIN [id number] 23:40:00 Test Item Value Reference Range Comments PROTIME (BEAKER) (test cjbs=831) 15.8 seconds 11.7-14.7 INR (BEAKER) (test udce=843) 1.3 <=5.9 RECOMMENDED COUMADIN/WARFARIN INR THERAPY RANGESSTANDARD DOSE: 2.0 - 3.0 Includes: PROPHYLAXIS forvenous thrombosis, systemic embolization; TREATMENT for venous thrombosis and/or pulmonary embolus.HIGH RISK: Target INR is 2.5-3.5 for patients with mechanical heart valves.CBC W/PLT COUNT & AUTO [id number] 23:27:00 Test Item Value Reference Range Comments WHITE BLOOD CELL COUNT (BEAKER) (test rdzq=552) 8.2 K/ L 3.5-10.5 RED BLOOD CELL COUNT (BEAKER) (test ukzd=117) 4.18 M/ L 3.93-5.22 HEMOGLOBIN (BEAKER) (test drgu=897) 11.9 GM/DL 11.2-15.7 HEMATOCRIT (BEAKER) (test wcda=882) 38.2 % 34.1-44.9 MEAN CORPUSCULAR VOLUME (BEAKER) (test lyws=656) 91.4 fL 79.4-94.8 MEAN CORPUSCULAR HEMOGLOBIN (BEAKER) (test 28.5 pg 25.6-32.2 nrsi=869) MEAN CORPUSCULAR HEMOGLOBIN CONC (BEAKER) (test 31.2 GM/DL 32.2-35.5 gsgc=539) RED CELL DISTRIBUTION WIDTH (BEAKER) (test 14.6 % 11.7-14.4 kxlw=569) PLATELET COUNT (BEAKER) (test cktp=679) 199 K/CU MM 150-450 MEAN PLATELET VOLUME (BEAKER) (test omor=632) 11.4 fL 9.4-12.3 NUCLEATED RED BLOOD CELLS (BEAKER) (test 0 /100 WBC 0-0 qewj=245) NEUTROPHILS RELATIVE PERCENT (BEAKER) (test 74 % ycdb=319) LYMPHOCYTES RELATIVE PERCENT (BEAKER) (test 20 % dnfy=451) MONOCYTES RELATIVE PERCENT (BEAKER) (test 4 % mevu=434) EOSINOPHILS RELATIVE PERCENT (BEAKER) (test 2 % vtaf=433) BASOPHILS RELATIVE PERCENT (BEAKER) (test 0 % wlnu=486) NEUTROPHILS ABSOLUTE COUNT (BEAKER) (test 6.05 K/ L 1.56-6.13 mexl=420) LYMPHOCYTES ABSOLUTE COUNT (BEAKER) (test 1.64 K/ L 1.18-3.74 cwrn=174) MONOCYTES ABSOLUTE COUNT (BEAKER) (test 0.33 K/ L 0.24-0.36 mdhj=321) EOSINOPHILS ABSOLUTE COUNT (BEAKER) (test 0.12 K/ L 0.04-0.36 uvsb=431) BASOPHILS ABSOLUTE COUNT (BEAKER) (test 0.01 K/ L 0.01-0.08 wjts=903) IMMATURE GRANULOCYTES-RELATIVE PERCENT (BEAKER) 1 % 0-1 (test tfgx=3016) RAD, CHEST, 1 VIEW, NON [id number] 21:51:00Reason for exam:->Stroke work up.Is the patient ?->UnknownShould this be performed at the bedside?- >YesFINAL REPORT Clinical History: Stroke workup Comparison Study: None Findings: The cardiac silhouette is enlarged. The lungs are within normal limits. The pleural spaces are clear. No significant bony or soft tissue abnormalities are seen. Impression: Cardiomegaly. Signed: Wellington Goodwineptod Verified Date/Time: 12/07/2017 21:51:29 Reading Location: [address] Consult Reading Room POCT-GLUCOSE [id number] 11:34:00 Test Item Value Reference Range Comments POC-GLUCOSE METER (BEAKER) 84 mg/dL 70-[address] [facility] [address] [place] [address] (test zhup=5051) [facility] [address] [id number] 08:58:00 Test Item Value Reference Range Comments PHOSPHORUS (BEAKER) (test mpsi=319) 4.4 mg/dL 2.3-4.7 [id number] 08:58:00 Test Item Value Reference Range Comments MAGNESIUM (BEAKER) (test fzzv=021) 2.3 mg/dL 1.6-2.6 BASIC METABOLIC [id number] 08:58:00 Test Item Value Reference Range Comments SODIUM (BEAKER) (test 142 meq/L 136-145 bfad=345) POTASSIUM (BEAKER) (test 3.9 meq/L 3.5-5.1 iynv=320) CHLORIDE (BEAKER) (test 108 meq/L 98-107 vrxk=124) CO2 (BEAKER) (test 26 meq/L 22-29 splg=030) BLOOD UREA NITROGEN 16 mg/dL 7-21 (BEAKER) (test mlxj=146) CREATININE (BEAKER) (test 0.69 mg/dL 0.57-1.25 vtur=054) GLUCOSE RANDOM (BEAKER) 86 mg/dL 70-105 (test rvqa=009) CALCIUM (BEAKER) (test 8.6 mg/dL 8.4-10.2 aflm=177) EGFR (BEAKER) (test 94 mL/min/1.73 sq m ESTIMATED GFR IS NOT rkfe=8868) ACCURATE CREATININE CLEARANCE IN PREDICTING GLOMERULAR FILTRATION RATE. ESTIMATED GFR IS NOT APPLICABLE FOR DIALYSIS PATIENTS. HEPATIC FUNCTION [id number] 08:58:00 Test Item Value Reference Range Comments TOTAL PROTEIN (BEAKER) (test jwrg=860) 6.8 gm/dL 6.0-8.3 ALBUMIN (BEAKER) (test ltjx=8544) 3.6 g/dL 3.5-5.0 BILIRUBIN TOTAL (BEAKER) (test vppv=658) 0.4 mg/dL 0.2-1.2 BILIRUBIN DIRECT (BEAKER) (test rfyw=700) 0.2 mg/dL 0.1-0.5 ALKALINE PHOSPHATASE (BEAKER) (test mjoz=158) 59 U/L 40-150 AST (SGOT) (BEAKER) (test bxtq=656) 24 U/L 5-34 ALT (SGPT) (BEAKER) (test bwyv=201) 17 U/L 6-55 POCT-GLUCOSE [id number] 08:20:00 Test Item Value Reference Range Comments POC-GLUCOSE METER (BEAKER) 143 mg/dL 70-[address] [facility] [address] [facility] (test dpwp=9133) [facility] [address] PROTHROMBIN [id number] 05:55:00 Test Item Value Reference Range Comments PROTIME (BEAKER) (test ktin=751) 13.4 seconds 11.7-14.7 INR (BEAKER) (test nydw=883) 1.0 <=5.9 RECOMMENDED COUMADIN/WARFARIN INR THERAPY RANGESSTANDARD DOSE: 2.0 - 3.0 Includes: PROPHYLAXIS forvenous thrombosis, systemic embolization; TREATMENT for venous thrombosis and/or pulmonary embolus.HIGH RISK: Target INR is 2.5-3.5 for patients with mechanical heart valves.POCT-GLUCOSE [id number] 20:32:00 Test Item Value Reference Range Comments POC-GLUCOSE METER (BEAKER) 90 mg/dL 70-110 TESTED AT [address] (test pqcq=2886) [place] [address] POCT-GLUCOSE [id number] 16:47:00 Test Item Value Reference Range Comments POC-GLUCOSE METER (BEAKER) 79 mg/dL 70-110 TESTED AT [address] (test fdtu=0613) [place] [address] POCT-GLUCOSE [id number] 07:47:00 Test Item Value Reference Range Comments POC-GLUCOSE METER (BEAKER) 97 mg/dL 70-110 TESTED AT [address] (test ewlr=1531) [place] [address] TROPONIN [id number] 07:02:00 Test Item Value Reference Range Comments TROPONIN I (BEAKER) (test xunp=556) < ng/mL 0.00-0.03 Troponin I (TnI) levels [...] failure, acidosis, acute neurological disease, and persistent tachyarrhythmia.[id number] 07:00:00 Test Item Value Reference Range Comments PHOSPHORUS (BEAKER) (test bwny=415) 5.0 mg/dL 2.3-4.7 [id number] 07:00:00 Test Item Value Reference Range Comments MAGNESIUM (BEAKER) (test mheg=120) 1.9 mg/dL 1.6-2.6 BASIC METABOLIC [id number] 07:00:00 Test Item Value Reference Range Comments SODIUM (BEAKER) (test 141 meq/L 136-145 dgre=274) POTASSIUM (BEAKER) (test 4.0 meq/L 3.5-5.1 bizm=111) CHLORIDE (BEAKER) (test 106 meq/L 98-107 jlkm=450) CO2 (BEAKER) (test 25 meq/L 22-29 ebhc=339) BLOOD UREA NITROGEN 14 mg/dL 7-21 (BEAKER) (test umbk=195) CREATININE (BEAKER) (test 0.72 mg/dL 0.57-1.25 mxzs=491) GLUCOSE RANDOM (BEAKER) 109 mg/dL 70-105 (test pntd=569) CALCIUM (BEAKER) (test 9.5 mg/dL 8.4-10.2 bsxj=926) EGFR (BEAKER) (test 89 mL/min/1.73 sq m ESTIMATED GFR IS NOT fmte=5219) ACCURATE CREATININE CLEARANCE IN PREDICTING GLOMERULAR FILTRATION RATE. ESTIMATED GFR IS NOT APPLICABLE FOR DIALYSIS PATIENTS. HEPATIC FUNCTION [id number] 07:00:00 Test Item Value Reference Range Comments TOTAL PROTEIN (BEAKER) (test jprv=693) 7.7 gm/dL 6.0-8.3 ALBUMIN (BEAKER) (test xhrd=9071) 4.0 g/dL 3.5-5.0 BILIRUBIN TOTAL (BEAKER) (test wrhc=054) 0.5 mg/dL 0.2-1.2 BILIRUBIN DIRECT (BEAKER) (test rdku=524) 0.2 mg/dL 0.1-0.5 ALKALINE PHOSPHATASE (BEAKER) (test sccq=739) 69 U/L 40-150 AST (SGOT) (BEAKER) (test wgyz=250) 34 U/L 5-34 ALT (SGPT) (BEAKER) (test bqqe=891) 21 U/L 6-55 PROTHROMBIN TIME/[id number] 06:31:00 Test Item Value Reference Range Comments PROTIME (BEAKER) (test wapp=830) 14.0 seconds 11.7-14.7 INR (BEAKER) (test jyph=217) 1.1 <=5.9 RECOMMENDED COUMADIN/WARFARIN INR THERAPY RANGESSTANDARD DOSE: 2.0 - 3.0 Includes: PROPHYLAXIS forvenous thrombosis, systemic embolization; TREATMENT for venous thrombosis and/or pulmonary embolus.HIGH RISK: Target INR is 2.5-3.5 for patients with mechanical heart valves.CBC W/PLT COUNT & AUTO [id number] 06:28:00 Test Item Value Reference Range Comments WHITE BLOOD CELL COUNT (BEAKER) (test vwmn=617) 8.9 K/ L 3.5-10.5 RED BLOOD CELL COUNT (BEAKER) (test tywx=487) 4.55 M/ L 3.93-5.22 HEMOGLOBIN (BEAKER) (test knyt=929) 13.0 GM/DL 11.2-15.7 HEMATOCRIT (BEAKER) (test yihf=169) 42.0 % 34.1-44.9 MEAN CORPUSCULAR VOLUME (BEAKER) (test yvvv=179) 92.3 fL 79.4-94.8 MEAN CORPUSCULAR HEMOGLOBIN (BEAKER) (test 28.6 pg 25.6-32.2 tmwo=184) MEAN CORPUSCULAR HEMOGLOBIN CONC (BEAKER) (test 31.0 GM/DL 32.2-35.5 prcd=883) RED CELL DISTRIBUTION WIDTH (BEAKER) (test 13.9 % 11.7-14.4 zqbu=325) PLATELET COUNT (BEAKER) (test nfex=791) 202 K/CU MM 150-450 MEAN PLATELET VOLUME (BEAKER) (test opjd=674) 12.6 fL 9.4-12.3 NUCLEATED RED BLOOD CELLS (BEAKER) (test 0 /100 WBC 0-0 wqkm=503) NEUTROPHILS RELATIVE PERCENT (BEAKER) (test 70 % ehcr=345) LYMPHOCYTES RELATIVE PERCENT (BEAKER) (test 23 % yppo=563) MONOCYTES RELATIVE PERCENT (BEAKER) (test 4 % mgzc=229) EOSINOPHILS RELATIVE PERCENT (BEAKER) (test 3 % oolx=843) BASOPHILS RELATIVE PERCENT (BEAKER) (test 0 % tzxp=168) NEUTROPHILS ABSOLUTE COUNT (BEAKER) (test 6.19 K/ L 1.56-6.13 gtxr=585) LYMPHOCYTES ABSOLUTE COUNT (BEAKER) (test 2.03 K/ L 1.18-3.74 ybtp=208) MONOCYTES ABSOLUTE COUNT (BEAKER) (test 0.37 K/ L 0.24-0.36 hrfc=157) EOSINOPHILS ABSOLUTE COUNT (BEAKER) (test 0.24 K/ L 0.04-0.36 klwj=229) BASOPHILS ABSOLUTE COUNT (BEAKER) (test 0.02 K/ L 0.01-0.08 djdi=537) IMMATURE GRANULOCYTES-RELATIVE PERCENT (BEAKER) 0 % 0-1 (test ggzp=2327) CREATINE KINASE (CK), TOTAL AND [id number] 01:39:00 Test Item Value Reference Range Comments CREATINE KINASE TOTAL (BEAKER) (test saaz=837) 55 U/L 29-200 CREATINE KINASE-MB (BEAKER) (test vreq=094) 1.1 ng/mL 0.0-6.6 CREATINE KINASE-MB INDEX (BEAKER) (test nfnz=318) 2.0 % CK-MB Reference Range:<6.7 Normal6.7-10.0 Borderline>10.0 AbnormalTROPONIN [id number] 01:39:00 Test Item Value Reference Range Comments TROPONIN I (BEAKER) (test gavo=020) < ng/mL 0.00-0.03 Troponin I (TnI) levels [...] acidosis, acute neurological disease, and persistent tachyarrhythmia.POCT-GLUCOSE [id number] 12:39:00 Test Item Value Reference Range Comments POC-GLUCOSE METER (BEAKER) 80 mg/dL 70-110 TESTED AT [address] (test vffi=9679) [place] [facility] [address] POCT-GLUCOSE [id number] 07:07:00 Test Item Value Reference Range Comments POC-GLUCOSE METER (BEAKER) 100 mg/dL 70-110 TESTED AT [address] (test plsw=6243) [facility] [address] POCT-GLUCOSE [id number] 21:12:00 Test Item Value Reference Range Comments POC-GLUCOSE METER (BEAKER) 138 mg/dL 70-110 TESTED AT [address] (test cxku=6669) [facility] [address] POCT-GLUCOSE [id number] 12:04:00 Test Item Value Reference Range Comments POC-GLUCOSE METER (BEAKER) 113 mg/dL 70-[address] [facility] [address] [facility] (test ccia=9419) [facility] [address] BASIC METABOLIC [id number] 04:26:00 Test Item Value Reference Range Comments SODIUM (BEAKER) (test 141 meq/L 136-145 etje=834) POTASSIUM (BEAKER) (test 4.2 meq/L 3.5-5.1 Specimen moderately belh=133) hemolyzed CHLORIDE (BEAKER) (test 107 meq/L 98-107 gnfl=262) CO2 (BEAKER) (test 25 meq/L 22-29 axyr=304) BLOOD UREA NITROGEN 13 mg/dL 7-21 (BEAKER) (test omap=558) CREATININE (BEAKER) (test 0.61 mg/dL 0.57-1.25 Specimen moderately avas=159) hemolyzed GLUCOSE RANDOM (BEAKER) 93 mg/dL 70-105 (test wahg=736) CALCIUM (BEAKER) (test 9.0 mg/dL 8.4-10.2 uuhn=638) EGFR (BEAKER) (test 108 mL/min/1.73 sq m ESTIMATED GFR IS NOT zzib=9702) ACCURATE CREATININE CLEARANCE IN PREDICTING GLOMERULAR FILTRATION RATE. ESTIMATED GFR IS NOT APPLICABLE FOR DIALYSIS PATIENTS. CBC W/PLT COUNT & AUTO [id number] 04:02:00 Test Item Value Reference Range Comments WHITE BLOOD CELL COUNT (BEAKER) (test xvrw=928) 8.4 K/ L 3.5-10.5 RED BLOOD CELL COUNT (BEAKER) (test slsp=922) 4.15 M/ L 3.93-5.22 HEMOGLOBIN (BEAKER) (test gscw=254) 11.8 GM/DL 11.2-15.7 HEMATOCRIT (BEAKER) (test bhut=186) 37.9 % 34.1-44.9 MEAN CORPUSCULAR VOLUME (BEAKER) (test locl=589) 91.3 fL 79.4-94.8 MEAN CORPUSCULAR HEMOGLOBIN (BEAKER) (test 28.4 pg 25.6-32.2 xevq=732) MEAN CORPUSCULAR HEMOGLOBIN CONC (BEAKER) (test 31.1 GM/DL 32.2-35.5 goyw=178) RED CELL DISTRIBUTION WIDTH (BEAKER) (test 14.1 % 11.7-14.4 wxws=634) PLATELET COUNT (BEAKER) (test alki=252) 200 K/CU MM 150-450 MEAN PLATELET VOLUME (BEAKER) (test ygck=246) 11.9 fL 9.4-12.3 NUCLEATED RED BLOOD CELLS (BEAKER) (test 0 /100 WBC 0-0 irdb=106) NEUTROPHILS RELATIVE PERCENT (BEAKER) (test 73 % gqqh=717) LYMPHOCYTES RELATIVE PERCENT (BEAKER) (test 19 % heoy=081) MONOCYTES RELATIVE PERCENT (BEAKER) (test 5 % klbx=245) EOSINOPHILS RELATIVE PERCENT (BEAKER) (test 3 % xwny=746) BASOPHILS RELATIVE PERCENT (BEAKER) (test 0 % xcms=315) NEUTROPHILS ABSOLUTE COUNT (BEAKER) (test 6.08 K/ L 1.56-6.13 adck=302) LYMPHOCYTES ABSOLUTE COUNT (BEAKER) (test 1.62 K/ L 1.18-3.74 vecu=425) MONOCYTES ABSOLUTE COUNT (BEAKER) (test 0.39 K/ L 0.24-0.36 azor=237) EOSINOPHILS ABSOLUTE COUNT (BEAKER) (test 0.24 K/ L 0.04-0.36 glfd=265) BASOPHILS ABSOLUTE COUNT (BEAKER) (test 0.01 K/ L 0.01-0.08 osnl=420) IMMATURE GRANULOCYTES-RELATIVE PERCENT (BEAKER) 1 % 0-1 (test pjgz=3555) CLOSTRIDIUM DIFFICILE TOXIN [id number] 13:44:00 Test Item Value Reference Range Comments CLOSTRIDIUM DIFFICILE TOXIN, PCR (BEAKER) (test Not Detected Not Detected iwju=1788) This qualitative real-time polymerase chain reaction assay [...] a positive result is not recommended.CT, CTANGIO [id number] 06:59:00Addendum BeginsREPORT STATUS:A Three-dimensional post intravenous contrast images of the cerebral vasculature were created on a free standing workstation for better visualization of cerebral vascular anatomy and pathology. Signed: Skip Gardner MDReport Verified Date/Time: 04/12/2017 06:59:20 Reading Location: [address] Ortho Consult Reading RoomAddendum EndsFINAL REPORT [...] MDReport Verified Date/Time: 04/07/2017 01:12:44 Reading Location: [facility] [id number] Ortho Consult Reading Room BASIC METABOLIC [id number] 05:37:00 Test Item Value Reference Range Comments SODIUM (BEAKER) (test 142 meq/L 136-145 sxje=769) POTASSIUM (BEAKER) (test 3.7 meq/L 3.5-5.1 Specimen slightly xwfy=240) hemolyzed CHLORIDE (BEAKER) (test 105 meq/L 98-107 arob=027) CO2 (BEAKER) (test 27 meq/L 22-29 uajl=485) BLOOD UREA NITROGEN 11 mg/dL 7-21 (BEAKER) (test msdn=291) CREATININE (BEAKER) (test 0.66 mg/dL 0.57-1.25 Specimen slightly ylti=500) hemolyzed GLUCOSE RANDOM (BEAKER) 97 mg/dL 70-105 (test gyop=826) CALCIUM (BEAKER) (test 9.2 mg/dL 8.4-10.2 ukjc=627) EGFR (BEAKER) (test 99 mL/min/1.73 sq m ESTIMATED GFR IS NOT ennv=6836) ACCURATE CREATININE CLEARANCE IN PREDICTING GLOMERULAR FILTRATION RATE. ESTIMATED GFR IS NOT APPLICABLE FOR DIALYSIS PATIENTS. CBC (HEMOGRAM ONLY)2017-04-12 05:17:00 Test Item Value Reference Range Comments WHITE BLOOD CELL COUNT (BEAKER) (test vopc=876) 7.7 K/ L 3.5-10.5 RED BLOOD CELL COUNT (BEAKER) (test dybu=335) 4.17 M/ L 3.93-5.22 HEMOGLOBIN (BEAKER) (test fjrl=398) 12.0 GM/DL 11.2-15.7 HEMATOCRIT (BEAKER) (test bitw=921) 38.0 % 34.1-44.9 MEAN CORPUSCULAR VOLUME (BEAKER) (test ezvr=259) 91.1 fL 79.4-94.8 MEAN CORPUSCULAR HEMOGLOBIN (BEAKER) (test 28.8 pg 25.6-32.2 bdgn=945) MEAN CORPUSCULAR HEMOGLOBIN CONC (BEAKER) (test 31.6 GM/DL 32.2-35.5 jkfe=999) RED CELL DISTRIBUTION WIDTH (BEAKER) (test 14.0 % 11.7-14.4 pksx=650) PLATELET COUNT (BEAKER) (test zznj=817) 219 K/CU MM 150-450 MEAN PLATELET VOLUME (BEAKER) (test fitc=193) 11.6 fL 9.4-12.3 NUCLEATED RED BLOOD CELLS (BEAKER) (test 0 /100 WBC 0-0 kgpr=095) POCT-GLUCOSE [id number] 17:55:00 Test Item Value Reference Range Comments POC-GLUCOSE METER (BEAKER) 111 mg/dL 70-110 TESTED AT [address] (test umgg=7509) [place] [address] POCT-GLUCOSE [id number] 12:02:00 Test Item Value Reference Range Comments POC-GLUCOSE METER (BEAKER) 100 mg/dL 70-110 TESTED AT [address] (test owtd=5972) [place] [id number] POCT-GLUCOSE [id number] 07:50:00 Test Item Value Reference Range Comments POC-GLUCOSE METER (BEAKER) 110 mg/dL 70-110 TESTED AT [address] (test clfg=7993) [place] [address] POCT-GLUCOSE [id number] 16:56:00 Test Item Value Reference Range Comments POC-GLUCOSE METER (BEAKER) 104 mg/dL 70-110 TESTED AT [address] (test zzdp=1424) [place] [id number] POCT-GLUCOSE [id number] 12:22:00 Test Item Value Reference Range Comments POC-GLUCOSE METER (BEAKER) 84 mg/dL 70-[address] [facility] [address] (test zoxp=9351) [facility] [address] HEMOGLOBIN [id number] 08:46:00 Test Item Value Reference Range Comments HEMOGLOBIN A1C (BEAKER) (test gfyn=545) 6.2 % 4.3-6.1 BASIC METABOLIC [id number] 06:42:00 Test Item Value Reference Range Comments SODIUM (BEAKER) (test 142 meq/L 136-145 wujp=095) POTASSIUM (BEAKER) (test 4.1 meq/L 3.5-5.1 Specimen slightly sncf=874) hemolyzed CHLORIDE (BEAKER) (test 104 meq/L 98-107 rsuk=891) CO2 (BEAKER) (test 28 meq/L 22-29 slyl=625) BLOOD UREA NITROGEN 9 mg/dL 7-21 (BEAKER) (test riod=298) CREATININE (BEAKER) (test 0.60 mg/dL 0.57-1.25 Specimen slightly sgos=074) hemolyzed GLUCOSE RANDOM (BEAKER) 96 mg/dL 70-105 (test bqjx=929) CALCIUM (BEAKER) (test 9.1 mg/dL 8.4-10.2 qjjr=153) EGFR (BEAKER) (test 110 mL/min/1.73 sq m ESTIMATED GFR IS NOT onhn=9114) ACCURATE CREATININE CLEARANCE IN PREDICTING GLOMERULAR FILTRATION RATE. ESTIMATED GFR IS NOT APPLICABLE FOR DIALYSIS PATIENTS. CBC W/PLT COUNT & AUTO [id number] 06:19:00 Test Item Value Reference Range Comments WHITE BLOOD CELL COUNT (BEAKER) (test sxag=744) 7.5 K/ L 3.5-10.5 RED BLOOD CELL COUNT (BEAKER) (test oblu=871) 4.12 M/ L 3.93-5.22 HEMOGLOBIN (BEAKER) (test kujz=983) 11.8 GM/DL 11.2-15.7 HEMATOCRIT (BEAKER) (test uyqh=157) 37.6 % 34.1-44.9 MEAN CORPUSCULAR VOLUME (BEAKER) (test pqwf=129) 91.3 fL 79.4-94.8 MEAN CORPUSCULAR HEMOGLOBIN (BEAKER) (test 28.6 pg 25.6-32.2 rovr=853) MEAN CORPUSCULAR HEMOGLOBIN CONC (BEAKER) (test 31.4 GM/DL 32.2-35.5 xqkj=796) RED CELL DISTRIBUTION WIDTH (BEAKER) (test 13.8 % 11.7-14.4 cdmq=945) PLATELET COUNT (BEAKER) (test blpx=057) 192 K/CU MM 150-450 MEAN PLATELET VOLUME (BEAKER) (test vhds=123) 11.6 fL 9.4-12.3 NUCLEATED RED BLOOD CELLS (BEAKER) (test 0 /100 WBC 0-0 jnky=950) NEUTROPHILS RELATIVE PERCENT (BEAKER) (test 77 % hzse=959) LYMPHOCYTES RELATIVE PERCENT (BEAKER) (test 16 % fcik=286) MONOCYTES RELATIVE PERCENT (BEAKER) (test 4 % prbq=325) EOSINOPHILS RELATIVE PERCENT (BEAKER) (test 2 % xsnj=236) BASOPHILS RELATIVE PERCENT (BEAKER) (test 0 % tiof=202) NEUTROPHILS ABSOLUTE COUNT (BEAKER) (test 5.82 K/ L 1.56-6.13 rrfx=335) LYMPHOCYTES ABSOLUTE COUNT (BEAKER) (test 1.21 K/ L 1.18-3.74 qfgs=093) MONOCYTES ABSOLUTE COUNT (BEAKER) (test 0.31 K/ L 0.24-0.36 ysam=051) EOSINOPHILS ABSOLUTE COUNT (BEAKER) (test 0.15 K/ L 0.04-0.36 ttnv=311) BASOPHILS ABSOLUTE COUNT (BEAKER) (test 0.01 K/ L 0.01-0.08 kqwu=907) IMMATURE GRANULOCYTES-RELATIVE PERCENT (BEAKER) 1 % 0-1 (test ixdp=9884) POCT-GLUCOSE [id number] 12:07:00 Test Item Value Reference Range Comments POC-GLUCOSE METER (BEAKER) 110 mg/dL 70-[address] [facility] [address] [place] [address] (test qiwr=9424) [facility] [address] CT, BRAIN, WITHOUT [id number] 06:55:00FINAL REPORT Clinical history : Decreased alertnessComparison [...] Verified Date/Time: 04/09/2017 06 :55:25 Reading Location: [facility] [id number] Consult Reading Room BASIC METABOLIC [id number] 05:57:00 Test Item Value Reference Range Comments SODIUM (BEAKER) (test 140 meq/L 136-145 pzxp=684) POTASSIUM (BEAKER) (test 3.7 meq/L 3.5-5.1 xvuo=151) CHLORIDE (BEAKER) (test 103 meq/L 98-107 jkoq=153) CO2 (BEAKER) (test 29 meq/L 22-29 icuh=576) BLOOD UREA NITROGEN 7 mg/dL 7-21 (BEAKER) (test hoga=682) CREATININE (BEAKER) (test 0.56 mg/dL 0.57-1.25 reeu=595) GLUCOSE RANDOM (BEAKER) 110 mg/dL 70-105 (test gwss=576) CALCIUM (BEAKER) (test 8.7 mg/dL 8.4-10.2 fdse=493) EGFR (BEAKER) (test 119 mL/min/1.73 sq m ESTIMATED GFR IS NOT wlho=7440) ACCURATE CREATININE CLEARANCE IN PREDICTING GLOMERULAR FILTRATION RATE. ESTIMATED GFR IS NOT APPLICABLE FOR DIALYSIS PATIENTS. CBC W/PLT COUNT & AUTO [id number] 04:54:00 Test Item Value Reference Range Comments WHITE BLOOD CELL COUNT (BEAKER) (test brva=553) 8.1 K/ L 3.5-10.5 RED BLOOD CELL COUNT (BEAKER) (test nbzv=287) 4.07 M/ L 3.93-5.22 HEMOGLOBIN (BEAKER) (test samj=393) 11.6 GM/DL 11.2-15.7 HEMATOCRIT (BEAKER) (test iizt=722) 37.3 % 34.1-44.9 MEAN CORPUSCULAR VOLUME (BEAKER) (test cvxm=347) 91.6 fL 79.4-94.8 MEAN CORPUSCULAR HEMOGLOBIN (BEAKER) (test 28.5 pg 25.6-32.2 kiar=011) MEAN CORPUSCULAR HEMOGLOBIN CONC (BEAKER) (test 31.1 GM/DL 32.2-35.5 pjfy=998) RED CELL DISTRIBUTION WIDTH (BEAKER) (test 13.6 % 11.7-14.4 bgzf=867) PLATELET COUNT (BEAKER) (test vwxn=536) 171 K/CU MM 150-450 MEAN PLATELET VOLUME (BEAKER) (test mjvw=178) 11.3 fL 9.4-12.3 NUCLEATED RED BLOOD CELLS (BEAKER) (test 0 /100 WBC 0-0 gxft=201) NEUTROPHILS RELATIVE PERCENT (BEAKER) (test 77 % bsns=810) LYMPHOCYTES RELATIVE PERCENT (BEAKER) (test 16 % fjth=681) MONOCYTES RELATIVE PERCENT (BEAKER) (test 5 % pyca=698) EOSINOPHILS RELATIVE PERCENT (BEAKER) (test 2 % mmbv=236) BASOPHILS RELATIVE PERCENT (BEAKER) (test 0 % yjts=126) NEUTROPHILS ABSOLUTE COUNT (BEAKER) (test 6.20 K/ L 1.56-6.13 ywzr=746) LYMPHOCYTES ABSOLUTE COUNT (BEAKER) (test 1.30 K/ L 1.18-3.74 jxsy=488) MONOCYTES ABSOLUTE COUNT (BEAKER) (test 0.38 K/ L 0.24-0.36 wjil=730) EOSINOPHILS ABSOLUTE COUNT (BEAKER) (test 0.14 K/ L 0.04-0.36 krgd=185) BASOPHILS ABSOLUTE COUNT (BEAKER) (test 0.01 K/ L 0.01-0.08 btiy=882) IMMATURE GRANULOCYTES-RELATIVE PERCENT (BEAKER) 1 % 0-1 (test oups=5587) POCT-GLUCOSE [id number] 01:34:00 Test Item Value Reference Range Comments POC-GLUCOSE METER (BEAKER) 92 mg/dL 70-[address] [facility] [address] [facility] (test kixj=1872) [facility] [address] POCT-GLUCOSE [id number] 19:20:00 Test Item Value Reference Range Comments POC-GLUCOSE METER (BEAKER) 85 mg/dL 70-[address] [facility] [address] [place] [address] (test ozxi=7802) [facility] [address] CT, BRAIN, WITHOUT [id number] 15:47:00FINAL REPORT CT head without contrast. Comparisons: [...] [place] Verified Date/Time: 04/08/2017 15:47:42 POCT- GLUCOSE [id number] 12:44:00 Test Item Value Reference Range Comments POC-GLUCOSE METER (BEAKER) 94 mg/dL 70-110 TESTED AT [address] (test ifns=9664) [facility] [address] BASIC METABOLIC [id number] 05:05:00 Test Item Value Reference Range Comments SODIUM (BEAKER) (test 142 meq/L 136-145 gllo=285) POTASSIUM (BEAKER) (test 4.0 meq/L 3.5-5.1 sahf=638) CHLORIDE (BEAKER) (test 107 meq/L 98-107 vhef=236) CO2 (BEAKER) (test 27 meq/L 22-29 hxpl=011) BLOOD UREA NITROGEN 9 mg/dL 7-21 (BEAKER) (test cepm=340) CREATININE (BEAKER) (test 0.59 mg/dL 0.57-1.25 cbgw=087) GLUCOSE RANDOM (BEAKER) 105 mg/dL 70-105 (test sczb=538) CALCIUM (BEAKER) (test 8.7 mg/dL 8.4-10.2 uqan=863) EGFR (BEAKER) (test 112 mL/min/1.73 sq m ESTIMATED GFR IS NOT rzzu=0251) ACCURATE CREATININE CLEARANCE IN PREDICTING GLOMERULAR FILTRATION RATE. ESTIMATED GFR IS NOT APPLICABLE FOR DIALYSIS PATIENTS. CBC W/PLT COUNT & AUTO [id number] 04:28:00 Test Item Value Reference Range Comments WHITE BLOOD CELL COUNT (BEAKER) (test idqu=603) 7.1 K/ L 3.5-10.5 RED BLOOD CELL COUNT (BEAKER) (test ymwv=009) 3.90 M/ L 3.93-5.22 HEMOGLOBIN (BEAKER) (test fost=179) 11.0 GM/DL 11.2-15.7 HEMATOCRIT (BEAKER) (test tids=680) 36.6 % 34.1-44.9 MEAN CORPUSCULAR VOLUME (BEAKER) (test hnib=462) 93.8 fL 79.4-94.8 MEAN CORPUSCULAR HEMOGLOBIN (BEAKER) (test 28.2 pg 25.6-32.2 jlms=095) MEAN CORPUSCULAR HEMOGLOBIN CONC (BEAKER) (test 30.1 GM/DL 32.2-35.5 zxbx=114) RED CELL DISTRIBUTION WIDTH (BEAKER) (test 14.2 % 11.7-14.4 hquj=674) PLATELET COUNT (BEAKER) (test vwey=076) 187 K/CU MM 150-450 MEAN PLATELET VOLUME (BEAKER) (test vkin=279) 10.9 fL 9.4-12.3 NUCLEATED RED BLOOD CELLS (BEAKER) (test 0 /100 WBC 0-0 lkvt=658) NEUTROPHILS RELATIVE PERCENT (BEAKER) (test 73 % anjy=833) LYMPHOCYTES RELATIVE PERCENT (BEAKER) (test 19 % xpru=523) MONOCYTES RELATIVE PERCENT (BEAKER) (test 5 % xwkl=832) EOSINOPHILS RELATIVE PERCENT (BEAKER) (test 2 % uykt=690) BASOPHILS RELATIVE PERCENT (BEAKER) (test 0 % nyak=063) NEUTROPHILS ABSOLUTE COUNT (BEAKER) (test 5.22 K/ L 1.56-6.13 phbj=159) LYMPHOCYTES ABSOLUTE COUNT (BEAKER) (test 1.37 K/ L 1.18-3.74 kure=391) MONOCYTES ABSOLUTE COUNT (BEAKER) (test 0.34 K/ L 0.24-0.36 iemq=378) EOSINOPHILS ABSOLUTE COUNT (BEAKER) (test 0.13 K/ L 0.04-0.36 xfrf=092) BASOPHILS ABSOLUTE COUNT (BEAKER) (test 0.01 K/ L 0.01-0.08 qjnm=462) IMMATURE GRANULOCYTES-RELATIVE PERCENT (BEAKER) 1 % 0-1 (test jiym=8655) POCT-GLUCOSE [id number] 17:32:00 Test Item Value Reference Range Comments POC-GLUCOSE METER (BEAKER) 90 mg/dL 70-110 TESTED AT [address] (test yfdn=6252) [facility] [address] POCT-GLUCOSE [id number] 12:02:00 Test Item Value Reference Range Comments POC-GLUCOSE METER (BEAKER) 91 mg/dL 70-110 TESTED AT [address] (test doir=7555) [place] [address] EEG AWAKE AND [id number] 11:38:00Reason for exam:->R/O subclinical seizuresDATE OF [id number] OF REPORT: [id number]: [id number]: 17- 1801Start time: 09:54Stop time: 10:18ICD-10: G 93.40CPT Code: 68987 HISTORY: 41 y.o. female with history of morbid obesity, DM2 who presented today to OSH with R sided facial droop and LUE weakness . Patient was evaluated at OSH where patient was started with tPA after normal CT. Now with acute encephalopathy MEDICATIONS THAT COULD AFFECT EEG: TECHNICAL SUMMARY: This is a digital EEG recorded with 32 input channels on a [employer] system and then reviewed with bipolar and [...] additional EEG recordings. Javi Mae MDNeurophysiology Fellow [id number] Note: I personally reviewed this EEG record in its entirety and I agreewith the details of this report. Kitty Montejo MD, PhDEpilepsy Attending 11 :38 AMCREATINE KINASE (CK), TOTAL AND [id number] 09:35:00 Test Item Value Reference Range Comments CREATINE KINASE TOTAL (BEAKER) (test zyex=974) 52 U/L 29-200 CREATINE KINASE-MB (BEAKER) (test dwwl=921) 1.2 ng/mL 0.0-6.6 CREATINE KINASE-MB INDEX (BEAKER) (test ulrx=544) 2.3 % CK-MB Reference Range:<6.7 Normal6.7-10.0 Borderline>10.0 AbnormalTROPONIN [id number] 09:31:00 Test Item Value Reference Range Comments TROPONIN I (BEAKER) (test yrcs=885) < ng/mL 0.00-0.03 Troponin I (TnI) levels [...] failure, acidosis, acute neurological disease, and persistent tachyarrhythmia.[id number] 09:28:00 Test Item Value Reference Range Comments AMMONIA (BEAKER) (test xuhy=172) 34 mol/L 18-72 TSH/FREE T4 IF [id number] 04:28:00 Test Item Value Reference Range Comments THYROID STIMULATING HORMONE (BEAKER) (test 1.12 uIU/mL 0.35-4.94 bdfh=897) VITAMIN B12 AND [id number] 04:28:00 Test Item Value Reference Range Comments VITAMIN B12 (BEAKER) (test ewdl=217) 417 pg/mL 213-816 FOLATE (BEAKER) (test guhw=502) 13.6 ng/mL >=7.0 CBC W/PLT COUNT & AUTO [id number] 03:27:00 Test Item Value Reference Range Comments WHITE BLOOD CELL COUNT (BEAKER) (test nebw=868) 8.1 K/ L 3.5-10.5 RED BLOOD CELL COUNT (BEAKER) (test zely=542) 3.91 M/ L 3.93-5.22 HEMOGLOBIN (BEAKER) (test agjr=301) 11.4 GM/DL 11.2-15.7 HEMATOCRIT (BEAKER) (test cujg=879) 35.8 % 34.1-44.9 MEAN CORPUSCULAR VOLUME (BEAKER) (test sury=671) 91.6 fL 79.4-94.8 MEAN CORPUSCULAR HEMOGLOBIN (BEAKER) (test 29.2 pg 25.6-32.2 buvy=096) MEAN CORPUSCULAR HEMOGLOBIN CONC (BEAKER) (test 31.8 GM/DL 32.2-35.5 oovc=705) RED CELL DISTRIBUTION WIDTH (BEAKER) (test 14.3 % 11.7-14.4 bjrn=523) PLATELET COUNT (BEAKER) (test ptcy=950) 166 K/CU MM 150-450 MEAN PLATELET VOLUME (BEAKER) (test nvrr=564) 12.4 fL 9.4-12.3 NUCLEATED RED BLOOD CELLS (BEAKER) (test 0 /100 WBC 0-0 mqah=859) NEUTROPHILS RELATIVE PERCENT (BEAKER) (test 78 % lltx=438) LYMPHOCYTES RELATIVE PERCENT (BEAKER) (test 16 % ylsl=029) MONOCYTES RELATIVE PERCENT (BEAKER) (test 4 % vnda=735) EOSINOPHILS RELATIVE PERCENT (BEAKER) (test 1 % xbfe=482) BASOPHILS RELATIVE PERCENT (BEAKER) (test 0 % cvur=470) NEUTROPHILS ABSOLUTE COUNT (BEAKER) (test 6.27 K/ L 1.56-6.13 toam=323) LYMPHOCYTES ABSOLUTE COUNT (BEAKER) (test 1.30 K/ L 1.18-3.74 oznr=640) MONOCYTES ABSOLUTE COUNT (BEAKER) (test 0.32 K/ L 0.24-0.36 ptqx=152) EOSINOPHILS ABSOLUTE COUNT (BEAKER) (test 0.09 K/ L 0.04-0.36 hrmq=563) BASOPHILS ABSOLUTE COUNT (BEAKER) (test 0.02 K/ L 0.01-0.08 erjl=992) IMMATURE GRANULOCYTES-RELATIVE PERCENT (BEAKER) 1 % 0-1 (test kixt=3659) CREATINE KINASE (CK), TOTAL AND [id number] 03:11:00 Test Item Value Reference Range Comments CREATINE KINASE TOTAL (BEAKER) (test adhc=353) 71 U/L 29-200 CREATINE KINASE-MB (BEAKER) (test nmax=417) 1.5 ng/mL 0.0-6.6 CREATINE KINASE-MB INDEX (BEAKER) (test qbse=745) 2.1 % CK-MB Reference Range:<6.7 Normal6.7-10.0 Borderline>10.0 AbnormalFastingFastingTROPONIN [id number] 03:11:00 Test Item Value Reference Range Comments TROPONIN I (BEAKER) (test xyzr=485) < ng/mL 0.00-0.03 Troponin I (TnI) levels [...] acute neurological disease, and persistent tachyarrhythmia.FastingBASIC METABOLIC [id number] 03:04:00 Test Item Value Reference Range Comments SODIUM (BEAKER) (test 139 meq/L 136-145 vzxn=775) POTASSIUM (BEAKER) (test 4.3 meq/L 3.5-5.1 Specimen moderately wwmt=288) hemolyzed CHLORIDE (BEAKER) (test 107 meq/L 98-107 jlpw=652) CO2 (BEAKER) (test 24 meq/L 22-29 ujwr=203) BLOOD UREA NITROGEN 12 mg/dL 7-21 (BEAKER) (test lfrr=094) CREATININE (BEAKER) (test 0.68 mg/dL 0.57-1.25 Specimen moderately oryf=066) hemolyzed GLUCOSE RANDOM (BEAKER) 175 mg/dL 70-105 (test mpvx=244) CALCIUM (BEAKER) (test 8.5 mg/dL 8.4-10.2 msgf=048) EGFR (BEAKER) (test 95 mL/min/1.73 sq m ESTIMATED GFR IS NOT fdbw=0278) ACCURATE CREATININE CLEARANCE IN PREDICTING GLOMERULAR FILTRATION RATE. ESTIMATED GFR IS NOT APPLICABLE FOR DIALYSIS PATIENTS. FastingLIPID [id number] 03:04:00 Test Item Value Reference Range Comments TRIGLYCERIDES (BEAKER) (test 99 mg/dL Specimen moderately gdhg=962) hemolyzed CHOLESTEROL (BEAKER) (test 139 mg/dL Specimen moderately arbx=855) hemolyzed HDL CHOLESTEROL (BEAKER) (test 43 mg/dL bcyn=605) LDL CHOLESTEROL CALCULATED 76 mg/dL (BEAKER) (test chne=172) Triglyceride Reference Range: Low Risk <150 Borderline 150- 199 High Risk 200-499 Very High Risk >=500Cholesterol Reference Range: Low Risk <200 Borderline 200-239 High Risk > 240HDL Cholesterol Reference Range: Low Risk >=60 High Risk <40LDL Cholesterol Reference Range: Optimal <100 Near Optimal 100-129 Borderline 130-159 High 160-189 Very High >=190 FastingHEPATIC FUNCTION [id number] 03:04:00 Test Item Value Reference Range Comments TOTAL PROTEIN (BEAKER) (test 7.2 gm/dL 6.0-8.3 Specimen moderately hemolyzed ekfz=845) ALBUMIN (BEAKER) (test 3.4 g/dL 3.5-5.0 Specimen moderately hemolyzed gmnz=0446) BILIRUBIN TOTAL (BEAKER) (test 0.3 mg/dL 0.2-1.2 Specimen moderately hemolyzed fygw=274) BILIRUBIN DIRECT (BEAKER) 0.1 mg/dL 0.1-0.5 Specimen moderately hemolyzed (test atky=731) ALKALINE PHOSPHATASE (BEAKER) 74 U/L 40-150 (test cpoq=345) AST (SGOT) (BEAKER) (test 37 U/L 5-34 Specimen moderately hemolyzed qvgj=172) ALT (SGPT) (BEAKER) (test 18 U/L 6-55 Specimen moderately teyp=667) hemolyzed Fasting
[2019-05-09] MEDS ORDERED: NA CHLORIDE 0.9% 1,000 ML ONE (03:07)
[2019-05-09] MEDS ORDERED: MORPHINE 4 MG/ML SYR ONE (03:07)
[2019-05-09] MEDS ORDERED: ONDANSETRON 4 MG/2 ML VIAL ONE (03:07)
[2019-05-09 03:49] LABS: Basophils % 0.3 % (0-1.3); Hematocrit 36.5 % (36.0-45.0); Lymphocytes % 12.6 % (15.3-44.8); MPV 10.3 fL (7.6-11.3); RBC Red Blood Cell Count 4.11 M/uL (3.86-4.86)
[2019-05-09 03:59] LABS: Albumin 2.8 g/dL (3.4-5.0); Bilirubin Direct 0.2 mg/dL (0-0.2); Bilirubin Total 0.6 mg/dL (0.2-1.0); Potassium 3.6 mmol/L (3.5-5.1)
--- NOTE | 2019-05-09 05:24 | EDPHYS ---
Physician Documentation [facility] Name: Kelle Calderón Age: 43 yrs Sex: Female : 1975 Arrival Date: 05/09/2019 Time: 02:24 Bed 13 Private MD: ED Physician Bill De Paz HPI: 05/09 02:48 This 43 yrs old Female presents to ER via Wheelchair with complaints of Leg pkl Pain. 02:48 The patient presents with pain, that is acute, swelling, tenderness, erythema. The pkl complaints affect the right leg. Onset: The symptoms/episode began/occurred yesterday, and became worse today. 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 N/A - Hysterectomy lp1 Historical: - Allergies: 02:38 Plavix; lp1 02:38 Warfarin; lp1 02:38 PENICILLINS; lp1 - Home Meds: 02:38 Dexilant 60 mg oral CpDB 1 cap once daily [Active]; topiramate 100 mg oral CSpX 1 cap lp1 once daily [Active]; metformin 500 mg Oral tab 1 tab 2 times per day [Active]; atorvastatin 40 mg oral tab 1 tab once daily [Active]; Symbicort 160-4.5 mcg/actuation inhalation HFAA 1 puffs daily [Active]; aspirin 81 mg Oral TbEC 1 tab once daily [Active]; lisinopril 40 mg Oral tab 1 tab once daily [Active]; - PMHx: 02:38 GERD; Irritable bowel syndrome; CVA; Sleep Apnea; bells palsy; lymphedema; lp1 Hypertension; Diabetes - NIDDM; Depression; Hyperlipidemia; Asthma; Chronic pain; Kidney stones; Migraines; - PSHx: 02:38 ; Tubal ligation; Hysterectomy; Knee surgery; Cholecystectomy; Hernia repair; lp1 - Immunization history:: Adult Immunizations up to date. - Social history:: Smoking status: Patient/guardian denies using tobacco. - Ebola Screening: : No symptoms or risks identified at this time. ROS: 02:48 Eyes: Negative for injury, pain, redness, and discharge, ENT: Negative for injury, pkl pain, and discharge, Neck: Negative for injury, pain, and swelling, Cardiovascular: Negative for chest pain, palpitations, and edema, Respiratory: Negative for shortness of breath, cough, wheezing, and pleuritic chest pain, Abdomen/GI: Negative for abdominal pain, nausea, vomiting, diarrhea, and constipation, Back: Negative for injury and pain, : Negative for injury, bleeding, discharge, and swelling, Neuro: Negative for headache, weakness, numbness, tingling, and seizure. 02:48 MS/extremity: Positive for erythema, pain, swelling, tenderness, of the right leg. Exam: 02:48 Head/Face: Normocephalic, atraumatic. Eyes: Pupils equal round and reactive to light, pkl extra-ocular motions intact. Lids and lashes normal. Conjunctiva and sclera are non-icteric and not injected. Cornea within normal limits. Periorbital areas with no swelling, redness, or edema. ENT: Nares patent. No nasal discharge, no septal abnormalities noted. Tympanic membranes are normal and external auditory canals are clear. Oropharynx with no redness, swelling, or masses, exudates, or evidence of obstruction, uvula midline. Mucous membranes moist. Neck: Trachea midline, no thyromegaly or masses palpated, and no cervical lymphadenopathy. Supple, full range of motion without nuchal rigidity, or vertebral point tenderness. No Meningismus. Chest/axilla: Normal chest wall appearance and motion. Nontender with no deformity. No lesions are appreciated. Cardiovascular: Regular rate and rhythm with a normal S1 and S2. No gallops, murmurs, or rubs. Normal PMI, no JVD. No pulse deficits. Respiratory: Lungs have equal breath sounds bilaterally, clear to auscultation and percussion. No rales, rhonchi or wheezes noted. No increased work of breathing, no retractions or nasal flaring. Abdomen/GI: Soft, non-tender, with normal bowel sounds. No distension or tympany. No guarding or rebound. No evidence of tenderness throughout. Back: No spinal tenderness. No costovertebral tenderness. Full range of motion. Neuro: Awake and alert, GCS 15, oriented to person, place, time, and situation. Cranial nerves II-XII grossly intact. Motor strength 5/5 in all extremities. Sensory grossly intact. Cerebellar exam normal. Normal gait. 02:48 Musculoskeletal/extremity: Extremities: grossly normal except: noted in the right leg: erythema, pain, swelling, tenderness. Vital Signs: 02:33 BP 137 / 101; Pulse 111; Resp 18; Temp 99.3; Pulse Ox 98% on R/A; wh 02:38 Weight 167.83 kg (R); Height 5 ft. 3 in. (160.02 cm); Pain 10/10; lp1 03:53 BP 114 / 52; Pulse 84; Resp 18; Pulse Ox 94% on R/A; wh 04:45 BP 120 / 57; Pulse 95; Resp 18; Pulse Ox 95% on R/A; wh 05:52 BP 107 / 58; Pulse 92; Resp 18; Pulse Ox 98% on R/A; wh 02:38 Body Mass Index 65.54 (167.83 kg, 160.02 cm) lp1 MDM: 02:40 Patient medically screened. pkl 04:46 Data reviewed: vital signs, nurses notes, lab test result(s), radiologic studies. ED pkl course: Discussed patient with Dr. Billingsley. Will see patient in ER and decide if patient meet criteria for admission. 05/09 02:47 Order name: CBC with Diff pkl 05/09 02:47 Order name: Chem 7; Complete Time: 04:03 pkl 05/09 02:47 Order name: LFT's; Complete Time: 04:03 pkl 05/09 02:47 Order name: D-Dimer; Complete Time: 03:58 pkl 05/09 02:47 Order name: Hemoglobin A1c pkl 05/09 02:47 Order name: Sed Rate; Complete Time: 04:28 pkl 05/09 02:47 Order name: Blood Culture Adult (2) pkl 05/09 02:48 Order name: CBC with Automated Diff; Complete Time: 04:28 EDMS 05/09 03:22 Order name: Lactate; Complete Time: 04:06 pkl 05/09 05:32 Order name: CBC with Automated Diff EDMS 05/09 05:32 Order name: CBC with Automated Diff EDMS 05/09 05:32 Order name: Comprehensive Metabolic Panel EDMS 05/09 05:32 Order name: Comprehensive Metabolic Panel EDMS 05/09 05:32 Order name: Vancomycin Level Trough EDMS 05/09 03:05 Order name: Saline Lock; Complete Time: 03:05 05/09 03:58 Order name: US Extremity Venous Unilateral Ltd pkl 05/09 05:32 Order name: CONS Pharmacy Consult EDMS 05/09 05:32 Order name: Consistent Carb (ADA) [address] EDMS 05/09 05:32 Order name: Vancomycin Level Trough EDNH Administered Medications: 03:10 Drug: NS 0.9% 1000 ml Route: IV; Rate: 125 ml/hr; Site: left antecubital; 07:03 Follow up: IV Status: Infusion continued upon admission 03:10 Drug: Zofran 4 mg Route: IVP; Site: left antecubital; 03:55 Follow up: Response: No adverse reaction 03:13 Drug: morphine 4 mg {Note: RASS 0.} Route: IVP; Site: left antecubital; 03:55 Follow up: Response: No adverse reaction; Pain is decreased; RASS: Alert and Calm (0) Disposition: 05/09/19 05:23 Hospitalization ordered by Mason Billingsley for Inpatient Admission. Preliminary diagnosis is Cellulitis right leg. Failed outpatient therapy. Diabetes. - Bed requested for Telemetry/MedSurg (Inpatient). - Status is Inpatient Admission. ak1 - Condition is Stable. - Problem is new. - Symptoms are unchanged. UTI on Admission? No Signatures: Dis[facility] Ronel Killian RN RN Bill De Paz MD MD pkLani Modi RN RN lp1 Lory Thurston RN RN ak1 Nazario Schulz Corrections: (The following items were deleted from the chart) 05:37 05:23 Hospitalization Ordered by Mason Billingsley MD for Inpatient Admission. Preliminary diagnosis is Cellulitis right leg. Failed outpatient therapy. Diabetes. Bed requested for Telemetry/MedSurg (Inpatient). Status is Inpatient Admission. Condition is Stable. Problem is new. Symptoms are unchanged. UTI on Admission? No. pkl 06:48 05:37 05/09/2019 05:23 Hospitalization Ordered by Mason Billingsley MD for Inpatient ak1 Admission. Preliminary diagnosis is Cellulitis right leg. Failed outpatient therapy. Diabetes. Bed requested for Telemetry/MedSurg (Inpatient). Status is Inpatient Admission. Condition is Stable. Problem is new. Symptoms are unchanged. UTI on Admission? No. mw
--- NOTE | 2019-05-09 05:24 | ER ---
Nurse's Notes [facility] Name: Kelle Calderón Age: 43 yrs Sex: Female : 1975 Arrival Date: 05/09/2019 Time: 02:24 Bed 13 Private MD: Diagnosis: Cellulitis right leg. Failed outpatient therapy. Diabetes Presentation: 05/09 02:33 Presenting complaint: Patient states: Seen by PCP yesterday for pain, redness to right lp1 lower legs, began antibiotics; pain and redness worse now. Transition of care: patient was not received from another setting of care. Onset of symptoms was May 09, 2019. Risk Assessment: Do you want to hurt yourself or someone else? Patient reports no desire to harm self or others. Initial Sepsis Screen:. Care prior to arrival: None. 02:33 Method Of Arrival: Wheelchair lp1 02:33 Acuity: SIMRAN 3 lp1 02:41 Initial Sepsis Screen: Does the patient meet any 2 criteria? HR > 90 bpm. Does the wh patient have a suspected source of infection? Yes: Skin breakdown/wound. 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 LMP N/A - Hysterectomy lp1 Historical: - Allergies: 02:38 Plavix; lp1 02:38 Warfarin; lp1 02:38 PENICILLINS; lp1 - Home Meds: 02:38 Dexilant 60 mg oral CpDB 1 cap once daily [Active]; topiramate 100 mg oral CSpX 1 cap lp1 once daily [Active]; metformin 500 mg Oral tab 1 tab 2 times per day [Active]; atorvastatin 40 mg oral tab 1 tab once daily [Active]; Symbicort 160-4.5 mcg/actuation inhalation HFAA 1 puffs daily [Active]; aspirin 81 mg Oral TbEC 1 tab once daily [Active]; lisinopril 40 mg Oral tab 1 tab once daily [Active]; - PMHx: 02:38 GERD; Irritable bowel syndrome; CVA; Sleep Apnea; bells palsy; lymphedema; lp1 Hypertension; Diabetes - NIDDM; Depression; Hyperlipidemia; Asthma; Chronic pain; Kidney stones; Migraines; - PSHx: 02:38 ; Tubal ligation; Hysterectomy; Knee surgery; Cholecystectomy; Hernia repair; lp1 - Immunization history:: Adult Immunizations up to date. - Social history:: Smoking status: Patient/guardian denies using tobacco. - Ebola Screening: : No symptoms or risks identified at this time. Screenin:41 Abuse screen: Denies threats or abuse. Denies injuries from another. Nutritional screening: No deficits noted. Tuberculosis screening: No symptoms or risk factors identified. Fall Risk None identified. Assessment: 02:42 General: Appears in no apparent distress. uncomfortable, Behavior is crying. Pain: wh Complains of pain in right leg Pain does not radiate. Pain currently is 10 out of 10 on a pain scale. Pain began 2-3 days ago. Neuro: Level of Consciousness is awake, alert, obeys commands. Cardiovascular: Capillary refill < 3 seconds. Respiratory: Airway is patent Respiratory effort is even, unlabored, Respiratory pattern is regular, symmetrical. GI: Abdomen is round non-distended. : No signs and/or symptoms were reported regarding the genitourinary system. EENT: No signs and/or symptoms were reported regarding the EENT system. Derm: Redness on Right lower leg. Musculoskeletal: Circulation, motion, and sensation intact. Swelling present in right leg. 03:52 Reassessment: Patient appears in no apparent distress at this time. No changes from previously documented assessment. Patient and/or family updated on plan of care and expected duration. Pain level reassessed. Patient is alert, oriented x 3, equal unlabored respirations, skin warm/dry/pink. Patient states feeling better. Patient states symptoms have improved. 03:56 Reassessment: Critical lab alert value of [id number] [id number] notified MD. 04:45 Reassessment: Patient appears in no apparent distress at this time. No changes from previously documented assessment. Patient and/or family updated on plan of care and expected duration. Pain level reassessed. Patient is alert, oriented x 3, equal unlabored respirations, skin warm/dry/pink. DR De Paz at bedside explaining plan of care Patient states feeling better. Patient states symptoms have improved. 05:52 Reassessment: Patient appears in no apparent distress at this time. No changes from previously documented assessment. Patient and/or family updated on plan of care and expected duration. Pain level reassessed. Patient is alert, oriented x 3, equal unlabored respirations, skin warm/dry/pink. Patient states feeling better. Patient states symptoms have improved. Vital Signs: 02:33 BP 137 / 101; Pulse 111; Resp 18; Temp 99.3; Pulse Ox 98% on R/A; wh 02:38 Weight 167.83 kg (R); Height 5 ft. 3 in. (160.02 cm); Pain 10/10; lp1 03:53 BP 114 / 52; Pulse 84; Resp 18; Pulse Ox 94% on R/A; wh 04:45 BP 120 / 57; Pulse 95; Resp 18; Pulse Ox 95% on R/A; wh 05:52 BP 107 / 58; Pulse 92; Resp 18; Pulse Ox 98% on R/A; wh 02:38 Body Mass Index 65.54 (167.83 kg, 160.02 cm) lp1 ED Course: 02:24 Patient arrived in ED. ds1 02:32 Nazario Schulz is Primary Nurse. wh 02:34 Triage completed. lp1 02:34 Arm band placed on. lp1 02:40 Bill De Paz MD is Attending Physician. pkl 02:42 Patient has correct armband on for positive identification. Bed in low position. Call light in reach. Side rails up X 1. Pulse ox on. NIBP on. 02:50 Inserted saline lock: 20 gauge in left antecubital area, using aseptic technique. Blood wh collected. 05:22 Mason Billingsley MD is Hospitalizing Provider. pkl 06:30 No provider procedures requiring assistance completed. IV discontinued, intact, bleeding controlled, No redness/swelling at site. Administered Medications: 03:10 Drug: NS 0.9% 1000 ml Route: IV; Rate: 125 ml/hr; Site: left antecubital; 07:03 Follow up: IV Status: Infusion continued upon admission 03:10 Drug: Zofran 4 mg Route: IVP; Site: left antecubital; 03:55 Follow up: Response: No adverse reaction 03:13 Drug: morphine 4 mg {Note: RASS 0.} Route: IVP; Site: left antecubital; 03:55 Follow up: Response: No adverse reaction; Pain is decreased; RASS: Alert and Calm (0) Outcome: 05:23 Decision to Hospitalize by Provider. pkl 06:30 Admitted to Med/surg accompanied by tech, family with patient, via stretcher, room 214, with chart, Report called to Dinah Hogan RN 06:30 Condition: stable 06:30 Instructed on the need for admit. 06:48 Patient left the ED. ak1 Signatures: Bill De Paz MD MD pkl Sanford, Demi ds1 Lani Segura RN RN lp1 Lory Thurston RN RN ak1 [facility]
[2019-05-09] MEDS ORDERED: ONDANSETRON 4 MG/2 ML VIAL IV PRN (05:25)
[2019-05-09] MEDS ORDERED: ACETAMINOPHEN 500 MG TAB PO PRN (05:25)
[2019-05-09] MEDS ORDERED: ALBUTEROL 2.5 MG/3 ML NEB SOL NEB PRN ×2 (05:25→14:00)
[2019-05-09] MEDS ORDERED: MELATONIN 5 MG TABLET PO PRN (05:27)
[2019-05-09] MEDS ORDERED: DIPHENHYDRAMINE 50 MG/ML VIAL IV PRN (05:27)
[2019-05-09] MEDS ORDERED: HYDRALAZINE HCL 20 MG/ML VIAL IV PRN (05:27)
[2019-05-09] MEDS: NA CHLORIDE 0.9% 1,000 ML IV SCH ×2 (06:00→21:30)
[2019-05-09] MEDS: INSULIN -REGULAR HUMAN 50 UNIT/0.5 ML ML SQ SCH ×4 (07:30→21:00)
--- NOTE | 2019-05-09 07:51 | HP ---
Date of Admission: 05/09/2019 Presenting Complaint: Right foot swelling with pain. History Of Present Illness: Ms. Kelle Calderón is a 43-year-old female with history of hypertension, diabetes mellitus, morbid obesity, hyperlipidemia, chronic bilateral lymphedema, who developed rash over the right foot 3 days ago. Rash continued to worsen and became associated with pain. Area of rash started to increase, progressing from above the ankle distally towards the toe and upper towards the knee. The patient was seen by primary care physician yesterday and started on doxycycline and Augmentin. She has taken 4 doses of each, but noticed rash continued to worsen as well as increasing in the pain and swelling intensity. Patient became unable to ambulate on that foot since earlier today . She also developed a new itching with rash over the upper arms. She presented to the ED today because of worsening pain symptoms. She denies any traumatic injury. She denies any recent travel. She admits to fever with chills. She denies any nausea or vomiting. She admits to prior history of allergy to penicillin. Denies any prior rash or allergic reaction to bactrim or doxycycline. Past Medical History: Significant for hypertension, diabetes mellitus, morbid obesity, depression, history of CVA, history of IBS, history of GERD, history of Naranjo palsy. History of migraines and history of kidney stones as well as history of asthma. Past Surgical History: , hysterectomy, knee surgery, gallbladder surgery as well as hernia repair. Allergies: COUMADIN WELL PENICILLIN AND PLAVIX. Social History: Patient resides in the community with the spouse. Fully functional at baseline. Denies any history of tobacco, alcohol, or illicit drug use. Family History: Significant for grandfather with history of coronary artery disease. Patient is not sure if history of DVT in grandparents. Home Medications: Extensive. See med reconciliation list. Dexilant, topiramate, metformin, Lipitor, Symbicort, aspirin, and lisinopril. Review of Systems: All systems reviewed x14 were negative except as mentioned above. Physical Examination: Current Vital Signs: Blood pressure of , pulse of 86, respiratory rate of 18, temperature afebrile at 99.3. Patient has weight of 167 Kg. General: Obese young female, lying in bed, not in any pain distress. HEENT: Head is atraumatic, normocephalic. Pupils equal and reactive to light. Extraocular motor movements intact. Neck: Short and wide neck with no erythema on the neck skin fold. Respiratory: Good air entry bilaterally though decreased at the bases with no wheeze or rhonchi. Cardiovascular: S1, S2. Rate and rhythm regular. GI: Abdomen, obese. Bowel sounds positive. No organomegaly. No tenderness. Inguinabdominal fold with marked hyperpigmented erythematous shining rash as well as purulent odor noted extending into the inguinal and groin area. Extremities: 1+ lymphedema bilaterally with worsening erythematous macular rash over the mid right dillon extended to the just below the toes. Significant tenderness elicited. Also noted right calf tenderness, but negative Gabe sign. Neuro: Patient is alert, oriented. No neurological deficit. Tone and power are symmetrical bilaterally. Laboratory Data: WBC 8.2, hemoglobin 12, platelet 156, neutrophils 83%, ESR of . D-dimer of 4381. Potassium 3.6, chloride 104, BUN 11, creatinine is 0.9. Glucose 144. Lactic acid 1.2. AST, alkaline phosphatase normal. Albumin 2.8. Ultrasound of the lower extremities unable to be done due to unavailability of tech. Impression: 1. Right lower extremity cellulitis. 2. Chronic bilateral lymphedema. 3. Diabetes mellitus. 4. Hypertension. 5. Morbid obesity. 6. Elevated D-dimer likely due to possible right lower extremity deep vein thrombosis. Plan: We will admit the patient to inpatient status. We will manage patient for the following; 1. Right lower extremity cellulitis. We will obtain blood culture x2. Given low-grade fever, we will start patient on empiric vancomycin as well as clindamycin. Given presence of presumed Bactrim-induced rash, we will do IV Benadryl as needed. We will keep lower extremities elevated as well as regular ambulation. 2. Possible right lower extremity DVT. Obtain extremity duplex ultrasound. We will start patient on empiric Lovenox q.12 for now. 3. Diabetes mellitus. We will do insulin sliding scale. Resume metformin. 4. Hypertension. Resume lisinopril and Norvasc. We will do IV hydralazine p.r.n. 5. DVT prophylaxis. Follow plan for Lovenox dosing. 6. Advance directives. Patient is a full code. 7. Inguinal fold rash, likely due to fungal infection. We will do nystatin powder to inguinal fold area. 8. Drug-induced rash. Hold Bactrim and doxycycline now. We will do IV Benadryl p.r.n. Total time spent review of record, discussion with patient, and evaluation greater than 60 minutes. EO/MODL Voice ID: [id number] MTDD
[2019-05-09] MEDS: MORPHINE 2 MG/ML SYR IV PRN ×3 (08:10→23:04)
[2019-05-09] MEDS: VANCOMYCIN 2 GM in NA CHLORIDE 0.9% 500 ML IVPB SCH (08:11)
[2019-05-09] MEDS: CLINDAMYCIN HCL 150 MG CAP PO SCH ×2 (08:11→12:55)
--- NOTE | 2019-05-09 08:19 | RAD REPORT ---
EXAM DESCRIPTION: USExtremity Venous Uni Ltd05/09/2019 7:55 am CLINICAL HISTORY: Right leg pain and swelling. COMPARISON: 2018 FINDINGS: Right common femoral, superficial femoral, and popliteal tibial veins are compressible and demonstrate augmentation. Doppler demonstrates good flow. Right posterior tibial vein was not visualized secondary to combination of body habitus and soft tiss ue swelling IMPRESSION: No evidence of deep venous thrombosis involving the right lower extremity.
[2019-05-09] MEDS ORDERED: ENOXAPARIN 100 MG/ML SYR SQ SCH (09:00)
[2019-05-09] MEDS ORDERED: INFLUENZA VACCINE (for 3y+) 0.5 ML DOSE IMVAC ONE (11:00)
[2019-05-09] MEDS: CEFTRIAXONE/SWI 1gm 1 GM/10 ML SYR IV SCH (13:25)
--- NOTE | 2019-05-09 13:29 | CON ---
History Of Present Illness: This is a 43-year-old female coming in with right lower extremity cellul itis and rash all across her body, mostly involving the chest and the arms and the legs. The patient was given Bactrim and another antibiotic as an outpatient, after which she developed the rash all ac ross. She also has allergies to penicillin including Amoxil and warfarin and Plavix. Past Medical History: Patient has significant history of strokes in the past, morbid obesity, diabet es mellitus, hypertension, depression, IBS, GERD, history of Naranjo's palsy, and migraine headaches. Tg knight also has kidney stones, asthma, 3 times, knee surgery on the right side 3 times, gal lbladder surgery, hernia repair, and hysterectomy. Social History: Nonsmoker, nondrinker. Family History: Noncontributory. Medications: Clindamycin and vancomycin. See MAR for other medications. Allergies: WARFARIN, PLAVIX, AND PENICILLIN. Review of Systems: 10-point review was performed. Physical Examination: General: This is a 43-year-old female, lying in bed, family by the bedside, not in any acute cardiop ulmonary distress. Vital Signs: Temperature 97.8, pulse 90, respiration 18, blood pressure 110/58. HEENT: Unremarkable. Neck: Supple. Lungs: Basal crackles. Heart: S1, S2. Regular. Abdomen: Soft. Bowel sounds present. Obese. Extremities: 3+ nonpitting edema with erythematous changes and increased warmth noted on the right l eg involving from foot up to the knee level. Multiple macular erythematous rashes noted on the legs, arms, and chest area. Laboratory Data: WBC 8.2, hemoglobin 12, platelets are 156. Chemistry shows sodium 137, potassium 3 .6, chloride 104, bicarb 29, BUN 11, creatinine 0.9, glucose 144 with albumin level of 2.8. Venous D oppler of the legs shows no DVT. Assessment And Plan: Right lower extremity cellulitis in a 43-year-old female with significant histo ry of diabetes mellitus, stroke, status post most likely secondary to trauma to the leg. We will rec ommend 2 weeks of antibiotic for now. Pending culture results, we will recommend to give the patient vancomycin and Rocephin. Discontinue clindamycin. Keep leg elevated when possible. Monitor for [place] gar control and infection. We will follow the patient closely. Thank you Dr. Mejia for consult. ISABEL/ROZINA Voice ID: [id number] Report ID: [id number]
--- NOTE | 2019-05-09 15:05 | PN ---
Date of Progress Note: 05/09/2019 Subjective: Patient is seen and examined, chart reviewed, and case discussed with RN. Patient is st ill having significant amount of pain and redness and swelling of the right lower extremity. Family at the bedside. Treatment plan explained. All questions answered. Medication List: Reviewed. Physical Examination: Vital Signs: Temperature 99.3, heart rate 90, blood pressure 119/58, respirations 15, O2 92% on room air. General: Awake, alert, oriented x3. Morbidly obese female. BMI over 60. CV: S1, S2. Sinus tachycardia. Peripheral pulses weak. Respiratory: Diminished breath sounds at the bases. No wheezing or stridor. Gastrointestinal: Abdomen is soft, nontender, nondistended. Positive bowel sounds. Extremities: No clubbing or cyanosis. Patient has swelling of the right lower extremity and erythem a. No calf tenderness. Neuro: Cranial nerves 2 through 12 intact grossly. No focal neurological deficits. Speech is laurie l. Skin: Patient has erythema of the right lower extremity. Tenderness to palpation. Warm to touch. Patient also has a fungal infection of the skin fold in the right inguinal area and underneath the ab dominal pannus. Laboratory Data: Sodium 137, potassium 3.6, chloride 104, CO2 of 29, BUN 11, creatinine 0.9, glucose 144, lactate 1.2. WBC 8.2. Blood cultures pending. Doppler venous study negative for DVT. Assessment And Plan: 43-year-old female with: 1.Right lower extremity cellulitis. Continue with IV antibiotics. Follow up on blood culture resul ts. Wound care. 2.Drug-induced rash, likely secondary to Bactrim. Continue with symptomatic treatment with Benadryl . 3.Right lower extremity swelling, likely secondary to cellulitis. Doppler shows no evidence of deep venous thrombosis in the right lower extremity. We will switch Lovenox to prophylactic dose. 4.Morbid obesity, body mass index 60. Counseled. 5.Diabetes mellitus type 2. Continue with sliding scale insulin with hyperglycemia. 6.Essential hypertension. We will resume home medications as appropriate. 7.Fungal infection in the right inguinal fold and underneath the abdominal pannus. We will continue with nystatin and wound care. SA/MODL Voice ID: [id number] Report ID: [id number]
[2019-05-09] MEDS: NYSTATIN PWDR 100000 UNIT/GM TOP SCH (21:29)
[2019-05-09] MEDS: ATORVASTATIN 40 MG TAB PO SCH (21:29)
[2019-05-09] MEDS: DIPHENHYDRAMINE 50 MG/ML VIAL IV SCH (21:30)
[2019-05-10] MEDS: VANCOMYCIN 2 GM in NA CHLORIDE 0.9% 500 ML IVPB SCH ×2 (02:00→14:32)
[2019-05-10] MEDS: DIPHENHYDRAMINE 50 MG/ML VIAL IV SCH ×4 (03:10→20:48)
[2019-05-10] MEDS: MORPHINE 2 MG/ML SYR IV PRN (03:52)
[2019-05-10 05:46] LABS: Absolute Lymphocytes (CBC) 0.9 K/uL (0.7-4.9); Basophils % 0.1 % (0-1.3); Hematocrit 32.9 % (36.0-45.0); Lymphocytes % 17.4 % (15.3-44.8); MPV 10.3 fL (7.6-11.3); RBC Red Blood Cell Count 3.72 M/uL (3.86-4.86)
[2019-05-10 05:57] VITALS: BMI 65.7
[2019-05-10 06:09] LABS: ALT/SGPT 24 U/L (12-78); AST/SGOT 34 U/L (15-37); Albumin 2.4 g/dL (3.4-5.0); Alkaline Phosphatase 53 U/L (45-117); BUN Blood Urea Nitrogen 9 mg/dL (7-18); Bicarbonate 28 mmol/L (21-32); Bilirubin Total 0.5 mg/dL (0.2-1.0); Glucose Level 127 mg/dL (74-106); Potassium 4.1 mmol/L (3.5-5.1); Protein, Total 7.2 g/dL (6.4-8.2); Sodium Level 140 mmol/L (136-145)
[2019-05-10] MEDS: INSULIN -REGULAR HUMAN 50 UNIT/0.5 ML ML SQ SCH ×4 (07:30→20:48)
[2019-05-10] MEDS: NA CHLORIDE 0.9% 1,000 ML IV SCH ×2 (08:40→20:48)
[2019-05-10] MEDS: NYSTATIN PWDR 100000 UNIT/GM TOP SCH ×2 (08:44→20:48)
[2019-05-10] MEDS: ENOXAPARIN 40 MG/0.4 ML SQ SCH (08:44)
[2019-05-10] MEDS: CEFTRIAXONE/SWI 1gm 1 GM/10 ML SYR IV SCH (08:44)
[2019-05-10] MEDS: TOPIRAMATE 100 MG PO SCH (08:45)
[2019-05-10] MEDS: lisinopriL 20 MG TAB PO SCH (08:45)
[2019-05-10] MEDS: PANTOPRAZOLE 40MG TABLET PO SCH (08:45)
[2019-05-10] MEDS: ASPIRIN EC 81 MG TAB PO SCH (08:45)
[2019-05-10] MEDS ORDERED: HOME MED 1 EA UNK (Budesonide/Formoterol Fumarate [Symbicort 160-4.5 Mcg Inhaler] 1 PUFF) PF SCH (09:00)
[2019-05-10] MEDS ORDERED: INFLUENZA VACCINE (for 3y+) 0.5 ML DOSE IMVAC ONE (09:00)
--- NOTE | 2019-05-10 14:04 | PN ---
Date of Progress Note: 05/10/2019 Subjective: The patient seen and examined. Chart reviewed and case discussed with RN and Dr. Fernandes . Patient states she had some difficulty moving her legs yesterday with weakness, however, resolved very quickly. This occurred overnight. Medications: List reviewed. Physical Examination: Vital Signs: Temperature 97.7, heart rate 82, blood pressure 120/71, respirations 18, O2 of 98% on r oom air. General: Awake, alert, oriented x3, in some mild distress. Morbidly obese female. BMI 65. CV: S1, S2. Regular rate and rhythm. Peripheral pulses present. Respiratory: Diminished breath sounds at the bases. No wheezing or stridor. Gastrointestinal: Abdomen is soft, nontender, nondistended. Positive bowel sounds. Extremities: No clubbing, cyanosis. Patient has lower extremity edema, right worse than left. Neurologic: Cranial nerves 2 through 12 intact grossly. No focal neurological deficit. Speech is n ormal. Skin: Patient has erythema of the right lower extremity, improved from demarcation from yesterday. forge tender to palpation and warm to touch. Patient also has a fungal infection in the skin folds o f the right inguinal area as well as underneath the abdominal pannus on the right side. Laboratory Data: Sodium 140, potassium 4.1, chloride 107, CO2 of 28, BUN 9, creatinine 0.68, glucose 127, calcium 8.1, albumin 2.4. WBC 5.2, H and H 10.8 and 32.9, platelets 140. Assessment: A 43-year-old female with: 1.Right lower extremity cellulitis. IV antibiotics have been adjusted. We will continue to monitor and follow up on cultures. No growth to date. 2.Drug-induced rash, may be secondary to Bactrim. Rash is now confluent, improving; however, no sig nificant elevation of eosinophils were noted on her CBC. 3.Lower extremity edema. Dopplers negative. 4.Morbid obesity. BMI is 65.7. Counseled. Patient will benefit from bariatric surgery to reduce m orbidity. 5.Diabetes mellitus type 2. We will continue with sliding scale insulin. Patient has hyperglycemia . We will monitor Accu-Cheks. 6.Essential hypertension, stable. 7.Fungal skin infection in the right inguinal fold underneath the abdominal pannus. Continue with n ystatin. Wound care. 8.Deep vein thrombosis prophylaxis, addressed. Plan: Consult PT. Ambulate. Patient instructed to keep leg elevated while at rest. Likely dischar ge in the next 24-48 hours. We will need antibiotics for 2 weeks. NASIMA Voice ID: [id number] Report ID: [id number]
[2019-05-10] MEDS: ATORVASTATIN 40 MG TAB PO SCH (20:48)
[2019-05-10] MEDS: Oxycodone HCl/Acetaminophen 1 TAB TAB PO PRN (20:48)
[2019-05-11] MEDS: VANCOMYCIN 2 GM in NA CHLORIDE 0.9% 500 ML IVPB SCH ×2 (02:00→14:26)
[2019-05-11] MEDS: DIPHENHYDRAMINE 50 MG/ML VIAL IV SCH ×4 (02:20→22:26)
[2019-05-11] MEDS: INSULIN -REGULAR HUMAN 50 UNIT/0.5 ML ML SQ SCH ×4 (07:30→21:00)
[2019-05-11] MEDS: CEFTRIAXONE/SWI 1gm 1 GM/10 ML SYR IV SCH (08:24)
[2019-05-11] MEDS: lisinopriL 20 MG TAB PO SCH (08:24)
[2019-05-11] MEDS: NYSTATIN PWDR 100000 UNIT/GM TOP SCH ×2 (08:24→21:00)
[2019-05-11] MEDS: ENOXAPARIN 40 MG/0.4 ML SQ SCH (08:24)
[2019-05-11] MEDS: ASPIRIN EC 81 MG TAB PO SCH (08:24)
[2019-05-11] MEDS: PANTOPRAZOLE 40MG TABLET PO SCH (08:24)
[2019-05-11] MEDS: TOPIRAMATE 100 MG PO SCH (08:25)
[2019-05-11 13:38] LABS: ALT/SGPT 27 U/L (12-78); AST/SGOT 47 U/L (15-37); Albumin 2.6 g/dL (3.4-5.0); Alkaline Phosphatase 64 U/L (45-117); BUN Blood Urea Nitrogen 8 mg/dL (7-18); Bicarbonate 27 mmol/L (21-32); Bilirubin Total 0.4 mg/dL (0.2-1.0); Glucose Level 112 mg/dL (74-106); Potassium 3.5 mmol/L (3.5-5.1); Protein, Total 7.7 g/dL (6.4-8.2); Sodium Level 141 mmol/L (136-145)
[2019-05-11] MEDS: NA CHLORIDE 0.9% 1,000 ML IV SCH (14:26)
--- NOTE | 2019-05-11 17:33 | PN ---
Date of Progress Note: 05/11/2019 Subjective: Patient seen and examined. Chart reviewed and case discussed with RN and Dr. Fernandes. Patient feels better, still having some pain and redness in the leg; however, states it is improved. Patient did work with PT yesterday. Medications: List reviewed. Physical Examination: Vital Signs: Temperature 97.1, heart rate 73, blood pressure 112/60, respirations 18, O2 of 95% on room air. General: Awake, alert, oriented x3. Ill-appearing female, morbidly obese. CV: S1, S2. Regular rate and rhythm. Peripheral pulses present. Respiratory: Diminished breath sounds at the bases. No wheezing or stridor. Gastrointestinal: Abdomen is soft, nontender, nondistended. Positive bowel sounds. Extremities: No clubbing or cyanosis. Patient has lower extremity edema. Skin: Right lower extremity erythema improved from previous demarcation. comber tender to touch and warmth to touch. Patient has a fungal infection of the abdominal pannus in right inguinal fold, erythema around the pannus of the right thigh. Neurologic: Nonfocal. Laboratory Data: Blood cultures, no growth to date. Blood glucose levels between 129 and 125. Assessment: 43-year-old female with: 1. Right lower extremity cellulitis. We will continue with IV antibiotics. We will follow up on cultures. 2. Drug-induced rash, improved. Benadryl prn 3. Lower extremity edema. Doppler negative. 4. Morbid obesity. BMI 65. 5. Diabetes mellitus type 2. We will continue with sliding scale insulin. Patient has hyperglycemia. Monitor Accu-Cheks. 6. Essential hypertension. 7. Fungal skin infection in the right inguinal fold underneath the abdominal pannus, improved with nystatin. 8. Deep venous thrombosis prophylaxis with Lovenox. Plan: Patient still has erythema, tenderness, and swelling of the right lower extremity. We will continue with IV antibiotics. We will switch to p.o. on discharge. Patient had reaction to Bactrim and doxy. Patient is also allergic to sulfa. We will likely discontinue on Augmentin for 2 weeks. SA/MODL Voice ID: [id number] Report ID: [id number] [facility]
[2019-05-11] MEDS: ATORVASTATIN 40 MG TAB PO SCH (22:26)
[2019-05-12] MEDS: DIPHENHYDRAMINE 50 MG/ML VIAL IV SCH ×3 (02:31→16:43)
[2019-05-12] MEDS: VANCOMYCIN 2 GM in NA CHLORIDE 0.9% 500 ML IVPB SCH (02:31)
[2019-05-12] MEDS: NA CHLORIDE 0.9% 1,000 ML IV SCH ×2 (02:31→14:00)
[2019-05-12] MEDS: Oxycodone HCl/Acetaminophen 1 TAB TAB PO PRN (05:01)
[2019-05-12 05:52] LABS: Absolute Lymphocytes (CBC) 1.2 K/uL (0.7-4.9); Basophils % 0.3 % (0-1.3); Hematocrit 31.3 % (36.0-45.0); Lymphocytes % 19.7 % (15.3-44.8); RBC Red Blood Cell Count 3.55 M/uL (3.86-4.86)
[2019-05-12 06:01] LABS: ALT/SGPT 27 U/L (12-78); AST/SGOT 47 U/L (15-37); Albumin 2.5 g/dL (3.4-5.0); Alkaline Phosphatase 52 U/L (45-117); BUN Blood Urea Nitrogen 6 mg/dL (7-18); Bicarbonate 29 mmol/L (21-32); Bilirubin Total 0.4 mg/dL (0.2-1.0); Glucose Level 122 mg/dL (74-106); Potassium 3.8 mmol/L (3.5-5.1); Sodium Level 142 mmol/L (136-145)
[2019-05-12 07:29] LABS: Blood Morphology Comment NOT SEEN (NOT SEEN); Platelet Estimate ADEQ
[2019-05-12] MEDS: INSULIN -REGULAR HUMAN 50 UNIT/0.5 ML ML SQ SCH ×3 (07:30→16:30)
[2019-05-12] MEDS: ASPIRIN EC 81 MG TAB PO SCH (08:32)
[2019-05-12] MEDS: lisinopriL 20 MG TAB PO SCH (08:33)
[2019-05-12] MEDS: NYSTATIN PWDR 100000 UNIT/GM TOP SCH (08:33)
[2019-05-12] MEDS: PANTOPRAZOLE 40MG TABLET PO SCH (08:33)
[2019-05-12] MEDS: ENOXAPARIN 40 MG/0.4 ML SQ SCH (08:34)
[2019-05-12] MEDS: CEFTRIAXONE/SWI 1gm 1 GM/10 ML SYR IV SCH (08:34)
[2019-05-12] MEDS: TOPIRAMATE 100 MG PO SCH (08:35)
[2019-05-12] MEDS ORDERED: levoFLOXacin 500 MG TAB PO ONE (10:29)
[2019-05-12 12:03] VITALS: O2SAT 93
[2019-05-12] MEDS ORDERED: RANITIDINE 150 MG TABLET PO ONE (13:05)
[2019-05-12] MEDS ORDERED: LORATADINE 10 MG TAB PO ONE (13:05)
[2019-05-12] MEDS ORDERED: METHYLPREDNISOLONE 40 MG INJ IV ONE (13:05)
[2019-05-12 17:19] VITALS: BP 136/83; TEMP 97
--- NOTE | 2019-05-12 21:30 | DS ---
Date of Discharge: 05/12/2019 Consultants: Dr. Fernandes with Infectious Disease. Admitting Diagnoses: 1.Right lower extremity cellulitis. 2.Right lower extremity swelling. 3.Diabetes mellitus type 2, non-insulin requiring with hyperglycemia. 4.Drug-induced rash. 5.Essential hypertension. 6.Inguinal fold rash, likely fungal. 7.Morbid obesity. Discharge Diagnoses: 1.Right lower extremity cellulitis, improved. Cultures negative. 2.Drug-induced rash likely secondary to Bactrim, improved. 3.Lower extremity edema, Dopplers negative for deep venous thrombosis. 4.Morbid obesity, BMI 65. 5.Diabetes mellitus type 2, [id number] with hyperglycemia. 6.Essential hypertension, stable. 7.History of cerebrovascular accident. 8.History of Naranjo's palsy. 9.Fungal skin infection in the right inguinal fold underneath the abdominal pannus, improved with ny statin. Hospital Course: Patient is a morbidly obese 43-year-old female, comes in with right lower extremity redness and swelling. The patient developed cellulitis and rash seems as if the rash was related to the Bactrim, however, was also on doxycycline and Augmentin. Patient also has allergy to Bactrim. She was given Benadryl and other medications to help with her rash, which improved. She was started on empiric vancomycin and Rocephin. Initially was started on clindamycin, changed to Rocephin due to her diabetes better coverage. Patient's blood cultures were negative. She responded well to treatm ent. She also had fungal infection of the skin folds around the right inguinal area and abdominal pa nnus. Nystatin was started. She did have an elevated D-dimer of 4381. Doppler sonogram was done, w hich ruled out DVT, PE was not suspected. The patient will also work with PT. She does have history of CVAs, morbidly obese, was able to ambulate with a walker. Patient was seen by Infectious Disease , Dr. Fernandes, agreed with treatment and recommended outpatient antibiotics. Patient's rash slightly became worse, was given another dose of steroids, H2 selena. Due to patient's multiple allergies, i s unable to receive penicillin, doxycycline, Bactrim, which will cover MRSA, will go with Levaquin fo r now. She understands the risks involved with Levaquin, side effects including aortic aneurysm rupt ure, Achilles tendon rupture, infection, does not require long-term IV antibiotics. Patient understa nds the risks and agrees to continue taking Levaquin. She was given a test dose in the hospital and monitored for several hours to ensure, no allergic reaction to this drug and was then discharged. Medications: List reviewed. Followup: Follow up with primary care physician in 2-3 days. Follow up with Infectious Disease, Dr. Fernandes in 2 weeks. Return to ER for worsening condition. Diet: Diabetic. Activity: As tolerated. Patient was counseled regarding her obesity with benefit from bariatric surgery once her acute condit ions improve. Physical Examination: General: Awake, alert, and oriented x3, morbidly obese female, BMI 65. CV: S1, S2. Respiratory: Moving air well bilaterally. Abdomen: Soft, nontender, nondistended. Positive bowel sounds. Extremities: No clubbing, cyanosis. The patient has lower extremity edema. Neuro: Nonfocal. The patient does have some changes of the face due to Naranjo's palsy and the affecte d side is the left side. Skin: The patient has minimal erythema of the right lower extremity, significantly improved from hany or. Does seem to have rash worsening on the left upper extremity. Total time spent discharging the patient was 41 minutes. /ROZINA Voice ID: [id number] Report ID: [id number]
== END 2019-05-12 17:28 | disposition home or self-care (01) | DRG 603 ==
LOC: ER 02:23 → ERHOLD 05:58 → 2ND 06:12
PROVIDERS: ADMIT Internal Medicine; ATTEND Family Medicine
DX: L03.115 Cellulitis of right lower limb (principal); Z68.44 Body mass index [BMI] 60.0-69.9, adult; I10 Essential (primary) hypertension; E11.65 Type 2 diabetes mellitus with hyperglycemia; E66.01 Morbid (severe) obesity due to excess calories; E78.5 Hyperlipidemia, unspecified; K58.9 Irritable bowel syndrome, unspecified; K21.9 Gastro-esophageal reflux disease without esophagitis; R21 Rash and other nonspecific skin eruption; L27.1 Localized skin eruption due to drugs and medicaments taken internally; T36.8X5A Adverse effect of other systemic antibiotics, initial encounter; Z86.73 Personal history of transient ischemic attack (TIA), and cerebral infarction without residual deficits
CPT/HCPCS: 36415; 80048; 80053; 80076; 80202; 82947; 83605; 85025; 85379; 85652; 87040; 93971; 96361; 96374; 96375; 97116; 97161; 99285; J0696; J1200; J1650; J2270; J2405; J2920; J7030; J7040

== ENCOUNTER 2019-05-31 06:54 | Day surgery (SDC) | payer OTHER ==
--- OUTSIDE RECORDS SUMMARY | 2019-05-31 06:59 | XMS REPORT | Summary of Care ---
:1975 Author Name MICHAEL MORTON M.D. Address Unavailable Unavailable , Care Team Providers Name Role Phone PHILL MORAES N.P. Unavailable Unavailable MICHAEL MORTON M.D. Unavailable Unavailable SYDNEE YIP, RORO MENDOZA Unavailable Unavailable PASHA RD [place], DEUCE Unavailable Unavailable Michael Morton MD Unavailable Unavailable [employer]LE[employer]HA [employer] [place], PHILL L Unavailable Unavailable Unavailable Unavailable Unavailable Functional Status Name Dates Details Functional status health issues are not documented Status: Name Dates Details Cognitive status health issues are not documented Status: Problems Name Dates Details Depression (311, F32.9) Status: Active Chronic back pain (724.5, M54.9) Status: Active History of kidney stones (V13.01, Z87.442) Status: Active Hematuria (599.70, R31.9) Status: Active Lymphedema of lower extremity (457.1, I89.0) Status: Active Hypertension (401.9, I10) Status: Active Hyperlipidemia (272.4, E78.5) Status: Active Type 2 diabetes mellitus (250.00, E11.9) Status: Active Obstructive sleep apnea, adult (327.23, G47.33) Status: Active Vitamin D deficiency (268.9, E55.9) Status: Active Asthma (493.90, J45.909) Status: Active GERD (gastroesophageal reflux disease) (530.81, K21.9) Status: Active Medications Name Dates Details Vitamin D (Ergocalciferol) 50607 UNIT Oral Capsule Take 1 capsule two times per week Quantity: 8 Refills: 3 PHILL MORAES N.P. Start : 21-Feb-2018 Active metFORMIN HCl - 1000 MG Oral Tablet Refills: 0 Active amLODIPine Besylate 10 MG Oral Tablet Refills: 0 Active Atorvastatin Calcium 40 MG Oral Tablet Refills: 0 Active Effexor XR 150 MG Oral Capsule Extended Release 24 Hour Refills: 0 Active Lisinopril 20 MG Oral Tablet Refills: 0 Active Pantoprazole Sodium 40 MG Oral Tablet Delayed Release Refills: 0 Active ProAir HFA AERS Refills: 0 Active predniSONE TABS Refills: 0 Active Vitamin D (Ergocalciferol) 82230 UNIT Oral Capsule Take 1 capsule two times per week Quantity: 8 Refills: 3 PHILL MORAES N.P. Start : 16-Jun-2018 Active Allergies and Adverse Reactions Name Dates [...] smoker Vital Signs Date Test Result Details [id number] BP Systolic 153 mm[Hg] Status: Comments: Location: LUE; Position: Sitting BP Diastolic 96 mm[Hg] Status: Comments: Location: LUE; Position: Sitting Height 63 in Status: Weight 361 lb Status: Body Mass Index Calculated 63.95 kg/m2 Status: Body Surface Area Calculated 2.49 m2 Status: Temperature 97.4 f Status: Comments: Method: Oral Heart Rate 77 /min Status: Results Date Description Value Details Results not documented Plan of Care Name Dates Details Planned Observations Planned Goals not documented Planned Encounters Appointment; PHILL MORAES NP On: 05-Sep-2018 12:45 Interventions Provided Plan- Weight loss goal of 300 lbs. - Clearance letter from neurologist - Clearance letter from physical therapy - Plan for Jackie-en-Y gastric bypass. - Return to clinic in one month. Instructions Name Dates Details Instructions not documented Encounters Appointment; MICHAEL MORTON M.D. On: 16-Dec-2017 9:15 Encounter Diagnosis: Problem not documented Appointment; DEUCE PAK RD On: 06-Jan-2018 10:30 Encounter Diagnosis: Problem not documented Appointment; PHILL MORAES NP On: 17-Jan-2018 15:00 Encounter Diagnosis: Problem not documented Appointment; PHILL MORAES NP On: 21-Feb-2018 13:30 Encounter Diagnosis: Problem not documented Appointment; PHILL MORAES NP On: 06-Apr-2018 12:00 Encounter Diagnosis: Problem not documented Appointment; PHILL MORAES NP On: 02-May-2018 13:00 Encounter Diagnosis: Problem not documented Appointment; PHILL MORAES NP On: 09-May-2018 13:45 Encounter Diagnosis: Problem not documented Appointment; DEUCE PAK RD On: 09-Jun-2018 9:45 Encounter Diagnosis: Problem not documented Appointment; MICHAEL MORTON M.D. On: 04-Aug-2018 10:00 Encounter Diagnosis: Problem not documented
--- OUTSIDE RECORDS SUMMARY | 2019-05-31 06:59 | XMS REPORT ---
:1975 [facility] [address] [place] [address] Care Team Providers Name Role Phone MAYRA CHEUNG Unavailable Unavailable MICKEY RESTREPO Unavailable Unavailable Problems This patient has no known problems. Allergies, Adverse Reactions, Alerts This patient has no known allergies or adverse reactions. Medications This patient has no known medications. Encounters Start End Encounter Admission Attending Care Care Encounter Date/Time Date/Time Type Type Clinicians Facility Department ID 2018-09-27 2018-09-27 Outpatient [facility] [id number] 07:11:00 07:11:00 Results Test Description Test Time Test Comments Text Results Atomic Results Result Comments RAD, CHEST, 2 2018-08-21 15:49:00 Reason for FINAL REPORT PATIENT VIEWS exam:->coughShould this be ID: [id number] Chest, performed at the PA and lateral. bedside?->No History: Cough. Comparison: 12/07/2017. Discussion: Mild cardiomegaly. The lungs are clear without evidence of consolidation or effusion. There are no acute osseous abnormalities. The soft tissues are unremarkable. IMPRESSION: No acute cardiopulmonary abnormality. Signed: Joseph Vang MDReport Verified Date/Time: 08/21/2018 15:49:59 Reading Location: [facility] Mammo Reading Room E CULTURE 2017-12-10 13:30:00 Test Item Value Reference Range Comments CULTURE (BEAKER) (test lxgi=2043) No growth POCT-GLUCOSE [id number] 08:21:00 Test Item Value Reference Range Comments POC-GLUCOSE METER (BEAKER) 99 mg/dL 70-110 TESTED AT [address] (test pkhs=9619) [facility] [address] POCT-GLUCOSE [id number] 06:14:00 Test Item Value Reference Range Comments POC-GLUCOSE METER (BEAKER) 105 mg/dL 70-110 TESTED AT [facility] [address] [facility] (test qrhk=1712) [facility] [address] BASIC METABOLIC [id number] 05:56:00 Test Item Value Reference Range Comments SODIUM (BEAKER) (test 140 meq/L 136-145 nyei=093) POTASSIUM (BEAKER) (test 3.9 meq/L 3.5-5.1 axuz=687) CHLORIDE (BEAKER) (test 105 meq/L 98-107 ihry=325) CO2 (BEAKER) (test 28 meq/L 22-29 sufm=212) BLOOD UREA NITROGEN 11 mg/dL 7-21 (BEAKER) (test llud=112) CREATININE (BEAKER) (test 0.62 mg/dL 0.57-1.25 fmah=586) GLUCOSE RANDOM (BEAKER) 107 mg/dL 70-105 (test qlfe=702) CALCIUM (BEAKER) (test 8.8 mg/dL 8.4-10.2 fzhq=581) EGFR (BEAKER) (test 106 mL/min/1.73 sq m ESTIMATED GFR IS NOT yolu=9213) ACCURATE CREATININE CLEARANCE IN PREDICTING GLOMERULAR FILTRATION RATE. ESTIMATED GFR IS NOT APPLICABLE FOR DIALYSIS PATIENTS. CBC W/PLT COUNT & AUTO [id number] 05:15:00 Test Item Value Reference Range Comments WHITE BLOOD CELL COUNT (BEAKER) (test emrb=919) 6.7 K/ L 3.5-10.5 RED BLOOD CELL COUNT (BEAKER) (test bydp=158) 4.08 M/ L 3.93-5.22 HEMOGLOBIN (BEAKER) (test suua=924) 11.4 GM/DL 11.2-15.7 HEMATOCRIT (BEAKER) (test utcq=491) 37.6 % 34.1-44.9 MEAN CORPUSCULAR VOLUME (BEAKER) (test yuqf=506) 92.2 fL 79.4-94.8 MEAN CORPUSCULAR HEMOGLOBIN (BEAKER) (test 27.9 pg 25.6-32.2 udyf=760) MEAN CORPUSCULAR HEMOGLOBIN CONC (BEAKER) (test 30.3 GM/DL 32.2-35.5 dowx=716) RED CELL DISTRIBUTION WIDTH (BEAKER) (test 14.6 % 11.7-14.4 gcph=310) PLATELET COUNT (BEAKER) (test glxp=932) 192 K/CU MM 150-450 MEAN PLATELET VOLUME (BEAKER) (test hpbh=219) 11.9 fL 9.4-12.3 NUCLEATED RED BLOOD CELLS (BEAKER) (test 0 /100 WBC 0-0 iunp=166) NEUTROPHILS RELATIVE PERCENT (BEAKER) (test 69 % mdni=922) LYMPHOCYTES RELATIVE PERCENT (BEAKER) (test 25 % uwvk=458) MONOCYTES RELATIVE PERCENT (BEAKER) (test 5 % syjb=184) EOSINOPHILS RELATIVE PERCENT (BEAKER) (test 2 % qlih=240) BASOPHILS RELATIVE PERCENT (BEAKER) (test 0 % nqxd=766) NEUTROPHILS ABSOLUTE COUNT (BEAKER) (test 4.59 K/ L 1.56-6.13 tsui=855) LYMPHOCYTES ABSOLUTE COUNT (BEAKER) (test 1.65 K/ L 1.18-3.74 rudn=390) MONOCYTES ABSOLUTE COUNT (BEAKER) (test 0.30 K/ L 0.24-0.36 jxvb=375) EOSINOPHILS ABSOLUTE COUNT (BEAKER) (test 0.11 K/ L 0.04-0.36 ewyr=104) BASOPHILS ABSOLUTE COUNT (BEAKER) (test 0.01 K/ L 0.01-0.08 uubc=466) IMMATURE GRANULOCYTES-RELATIVE PERCENT (BEAKER) 0 % 0-1 (test ooqb=8704) POCT-GLUCOSE [id number] 00:23:00 Test Item Value Reference Range Comments POC-GLUCOSE METER (BEAKER) 111 mg/dL 70-110 TESTED AT [facility] [address] [place] [address] (test ucwj=4973) [facility] [address] MR, MRA, BRAIN, WITHOUT [id number] 20:13:00Reason for exam:-> Ischemic Stroke EvaluationFINAL REPORT MRA Head CLINICAL HISTORY: Stroke TECHNIQUE: MRA of the head utilizing 3-D twca-wa-kylmvb technique, with 3-D reconstructions. COMPARISON: None FINDINGS: There is noevidence of intracranial aneurysm, focal stenosis, or major branch vessel occlusion. There is a origin of the right posterior cerebral artery. IMPRESSION: No evidence for a major nikolai of Willisproximal branch vessel occlusion. MRA Neck CLINICAL HISTORY: Stroke TECHNIQUE: MRA of the neck utilizing 2-D and 3-D vrhh-mp-iykblx technique, with 3-D reconstructions. COMPARISON: None FINDINGS: Thecarotid arteries in the neck are patent including their bifurcations. There is antegrade flow in the vertebral arteries in the neck. IMPRESSION: No evidence of hemodynamically significant stenosis in the cervical carotid or vertebral arteries by NASCET criteria. Signed: Madeleine Macias Verified Date/Time: 12/08/2017 20:13:50 Reading Location: [facility] Radiology Reading Room MR, MRA, NECK, WITHOUT IV [id number] 20:13: 00Reason for exam:->Ischemic Stroke EvaluationFINAL REPORT MRA Head CLINICAL HISTORY: Stroke TECHNIQUE: MRA of the head utilizing 3-D aefd-da-wtsdcu technique, with 3-D reconstructions. COMPARISON: None FINDINGS: There is noevidence of intracranial aneurysm, focal stenosis, or major branch vessel occlusion. There is a origin of the right posterior cerebral artery. IMPRESSION: No evidence for a major nikolai of Willisproximal branch vessel occlusion. MRA Neck CLINICAL HISTORY: Stroke TECHNIQUE: MRA of the neck utilizing 2-D and 3-D tsru-rj-lqvwvi technique, with 3-D reconstructions. COMPARISON: None FINDINGS: Thecarotid arteries in the neck are patent including their bifurcations. There is antegrade flow in the vertebral arteries in the neck. IMPRESSION: No evidence of hemodynamically significant stenosis in the cervical carotid or vertebral arteries by NASCET criteria. Signed: Madeleine Macias Verified Date/Time: 12/08/2017 20:13: 50 Reading Location: [facility] Radiology Reading Room MR, BRAIN, WITHOUT [id number] 20:02:00Reason for exam:->StrokeWhat is the patient's sedation [...] Verified Date/ Time: 12/08/2017 20:02:46 Reading Location: [facility] Radiology Reading Room 08:02 PMPOCT-GLUCOSE [id number] 15:23:00 Test Item Value Reference Range Comments POC-GLUCOSE METER (BEAKER) 106 mg/dL 70-110 TESTED AT [address] (test nhnb=5649) [place] [address] HEMOGLOBIN [id number] 11:57:00 Test Item Value Reference Range Comments HEMOGLOBIN A1C (BEAKER) (test wjku=026) 6.6 % 4.3-6.1 FastingTROPONIN [id number] 09:50:00 Test Item Value Reference Range Comments TROPONIN I (BEAKER) (test xwje=790) < ng/mL 0.00-0.03 Troponin I (TnI) levels [...] acidosis, acute neurological disease, and persistent tachyarrhythmia.POCT-GLUCOSE [id number] 06:23:00 Test Item Value Reference Range Comments POC-GLUCOSE METER (BEAKER) 110 mg/dL 70-110 TESTED AT [address] (test rxew=4058) [place] [address] POCT-GLUCOSE [id number] 06:15:00 Test Item Value Reference Range Comments POC-GLUCOSE METER (BEAKER) 149 mg/dL 70-110 TESTED AT [address] (test mjbs=9113) [place] [address] VITAMIN B12 AND [id number] 05:50:00 Test Item Value Reference Range Comments VITAMIN B12 (BEAKER) (test tbqq=098) 688 pg/mL 213-816 FOLATE (BEAKER) (test cdgw=127) 12.1 ng/mL >=7.0 TSH/FREE T4 IF [id number] 05:29:00 Test Item Value Reference Range Comments THYROID STIMULATING HORMONE (BEAKER) (test 0.66 uIU/mL 0.35-4.94 mnro=796) BASIC METABOLIC [id number] 05:11:00 Test Item Value Reference Range Comments SODIUM (BEAKER) (test 140 meq/L 136-145 kpty=149) POTASSIUM (BEAKER) (test 4.3 meq/L 3.5-5.1 Specimen slightly nwpf=186) hemolyzed CHLORIDE (BEAKER) (test 105 meq/L 98-107 ppns=021) CO2 (BEAKER) (test 27 meq/L 22-29 blkj=126) BLOOD UREA NITROGEN 8 mg/dL 7-21 (BEAKER) (test isbt=854) CREATININE (BEAKER) (test 0.67 mg/dL 0.57-1.25 Specimen slightly fkok=154) hemolyzed GLUCOSE RANDOM (BEAKER) 136 mg/dL 70-105 (test fxvz=480) CALCIUM (BEAKER) (test 8.7 mg/dL 8.4-10.2 gsxy=823) EGFR (BEAKER) (test 97 mL/min/1.73 sq m ESTIMATED GFR IS NOT swpf=5472) ACCURATE CREATININE CLEARANCE IN PREDICTING GLOMERULAR FILTRATION RATE. ESTIMATED GFR IS NOT APPLICABLE FOR DIALYSIS PATIENTS. FastingLIPID [id number] 05:11:00 Test Item Value Reference Range Comments TRIGLYCERIDES (BEAKER) (test 83 mg/dL Specimen slightly hemolyzed jbsr=951) CHOLESTEROL (BEAKER) (test 140 mg/dL Specimen slightly hemolyzed twea=317) HDL CHOLESTEROL (BEAKER) (test 38 mg/dL rqab=422) LDL CHOLESTEROL CALCULATED 85 mg/dL (BEAKER) (test wsnx=028) Triglyceride Reference Range: Low Risk <150 Borderline 150- 199 High Risk 200-499 Very High Risk >=500Cholesterol Reference Range: Low Risk <200 Borderline 200-239 High Risk > 240HDL Cholesterol Reference Range: Low Risk >=60 High Risk <40LDL Cholesterol Reference Range: Optimal <100 Near Optimal 100-129 Borderline 130-159 High 160-189 Very High >=190 FastingRAPID DRUG SCREEN, [id number] 04:34:00 Test Item Value Reference Range Comments BARBITURATE URINE (BEAKER) (test pmnf=550) Negative Negative BENZODIAZEPINE SCREEN URINE (BEAKER) (test Negative Negative ylhm=921) COCAINE (METAB.) SCREEN (BEAKER) (test zfmm=1970) Negative Negative METHADONE SCREEN (BEAKER) (test cfol=4991) Negative Negative OPIATE SCREEN URINE (BEAKER) (test brxa=707) Negative Negative CANNABINOID SCREEN URINE (BEAKER) (test pycx=015) Negative Negative AMPH/METHAMPH SCREEN (BEAKER) (test gqok=1108) Negative Negative PHENCYCLIDINE SCREEN URINE (BEAKER) (test ezdu=191) Negative Negative OXYCODONE SCREEN URINE (BEAKER) (test pkjh=8485) Negative Negative DRUG CUTOFF CONC.Cocaine 300 ng/mL Cannabinoid 50 ng/mL Benzodiazepine 200 ng/mLBarbiturate 200 ng/ mLPhencyclidine 25 ng/mLOpiate 300 ng/mLMethadone 300 ng/mLAmphetamine/ 1000 ng/mL MethamphetamineOxycodone 300 ng/mLThis assay provides an unconfirmed qualitative test result for the clinical management of patients in emergency situations. Chain of custody not maintained. Some ggwx-xmz-jewhuvv medications, as well as adulterants, may cause inaccurate results. Clinical correlation should be applied. A more comprehensive drug screen or confirmation of a detected drug may be performed upon request.URINALYSIS W/ [id number] 04:09:00 Test Item Value Reference Range Comments COLOR (BEAKER) (test eufo=161) Yellow CLARITY (BEAKER) (test owwt=734) Clear SPECIFIC GRAVITY UA (BEAKER) (test 1.039 1.001-1.035 otem=924) PH UA (BEAKER) (test sjnl=695) 5.5 5.0-8.0 PROTEIN UA (BEAKER) (test 10 mg/dL Negative wuxs=658) GLUCOSE UA (BEAKER) (test Negative Negative hsho=499) KETONES UA (BEAKER) (test Negative Negative ndes=226) BILIRUBIN UA (BEAKER) (test Negative Negative qzfi=250) BLOOD UA (BEAKER) (test grqq=224) Small Negative NITRITE UA (BEAKER) (test Negative Negative byjb=171) LEUKOCYTE ESTERASE UA (BEAKER) Negative Negative (test uskq=372) UROBILINOGEN UA (BEAKER) (test 0.2 mg/dL 0.2-1.0 wqrq=010) RBC UA (BEAKER) (test anuq=177) 1 /HPF WBC UA (BEAKER) (test ldwj=211) < /HPF MUCUS (BEAKER) (test dugs=8048) Occasional SQUAMOUS EPITHELIAL (BEAKER) (test < /HPF rqit=454) CRYSTALS, URINE (BEAKER) (test Rare enua=6914) SOURCE(BEAKER) (test yjrs=3380) Urine, Sterile Collection CBC W/PLT COUNT & AUTO [id number] 03:54:00 Test Item Value Reference Range Comments WHITE BLOOD CELL COUNT (BEAKER) (test spla=838) 7.2 K/ L 3.5-10.5 RED BLOOD CELL COUNT (BEAKER) (test gzqk=971) 4.10 M/ L 3.93-5.22 HEMOGLOBIN (BEAKER) (test axqw=322) 11.6 GM/DL 11.2-15.7 HEMATOCRIT (BEAKER) (test fjqo=030) 37.5 % 34.1-44.9 MEAN CORPUSCULAR VOLUME (BEAKER) (test grxo=742) 91.5 fL 79.4-94.8 MEAN CORPUSCULAR HEMOGLOBIN (BEAKER) (test 28.3 pg 25.6-32.2 tiku=333) MEAN CORPUSCULAR HEMOGLOBIN CONC (BEAKER) (test 30.9 GM/DL 32.2-35.5 wvfi=901) RED CELL DISTRIBUTION WIDTH (BEAKER) (test 14.6 % 11.7-14.4 vfof=921) PLATELET COUNT (BEAKER) (test quhg=756) 194 K/CU MM 150-450 MEAN PLATELET VOLUME (BEAKER) (test xxtn=644) 11.7 fL 9.4-12.3 NUCLEATED RED BLOOD CELLS (BEAKER) (test 0 /100 WBC 0-0 trqb=929) NEUTROPHILS RELATIVE PERCENT (BEAKER) (test 73 % nuqe=719) LYMPHOCYTES RELATIVE PERCENT (BEAKER) (test 21 % ydsw=434) MONOCYTES RELATIVE PERCENT (BEAKER) (test 4 % iucy=988) EOSINOPHILS RELATIVE PERCENT (BEAKER) (test 2 % oiff=752) BASOPHILS RELATIVE PERCENT (BEAKER) (test 0 % nahg=735) NEUTROPHILS ABSOLUTE COUNT (BEAKER) (test 5.22 K/ L 1.56-6.13 grrx=445) LYMPHOCYTES ABSOLUTE COUNT (BEAKER) (test 1.47 K/ L 1.18-3.74 zzoi=972) MONOCYTES ABSOLUTE COUNT (BEAKER) (test 0.31 K/ L 0.24-0.36 ldfa=917) EOSINOPHILS ABSOLUTE COUNT (BEAKER) (test 0.13 K/ L 0.04-0.36 zkym=484) BASOPHILS ABSOLUTE COUNT (BEAKER) (test 0.01 K/ L 0.01-0.08 xtcx=600) IMMATURE GRANULOCYTES-RELATIVE PERCENT (BEAKER) 0 % 0-1 (test huhc=7137) TROPONIN [id number] 23:56:00 Test Item Value Reference Range Comments TROPONIN I (BEAKER) (test rlub=888) < ng/mL 0.00-0.03 Troponin I (TnI) levels [...] acute neurological disease, and persistent tachyarrhythmia.HEPATIC FUNCTION [id number] 23:49: 00 Test Item Value Reference Range Comments TOTAL PROTEIN (BEAKER) (test ejef=869) 6.8 gm/dL 6.0-8.3 ALBUMIN (BEAKER) (test lpac=6921) 3.7 g/dL 3.5-5.0 BILIRUBIN TOTAL (BEAKER) (test chsx=723) 0.4 mg/dL 0.2-1.2 BILIRUBIN DIRECT (BEAKER) (test qrmh=200) 0.2 mg/dL 0.1-0.5 ALKALINE PHOSPHATASE (BEAKER) (test gjhd=753) 75 U/L 40-150 AST (SGOT) (BEAKER) (test llli=612) 30 U/L 5-34 ALT (SGPT) (BEAKER) (test riao=098) 17 U/L 6-55 PROTHROMBIN [id number] 23:40:00 Test Item Value Reference Range Comments PROTIME (BEAKER) (test gchn=093) 15.8 seconds 11.7-14.7 INR (BEAKER) (test lwtn=154) 1.3 <=5.9 RECOMMENDED COUMADIN/WARFARIN INR THERAPY RANGESSTANDARD DOSE: 2.0 - 3.0 Includes: PROPHYLAXIS forvenous thrombosis, systemic embolization; TREATMENT for venous thrombosis and/or pulmonary embolus.HIGH RISK: Target INR is 2.5-3.5 for patients with mechanical heart valves.CBC W/PLT COUNT & AUTO [id number] 23:27:00 Test Item Value Reference Range Comments WHITE BLOOD CELL COUNT (BEAKER) (test vqvq=317) 8.2 K/ L 3.5-10.5 RED BLOOD CELL COUNT (BEAKER) (test indu=548) 4.18 M/ L 3.93-5.22 HEMOGLOBIN (BEAKER) (test dbyp=245) 11.9 GM/DL 11.2-15.7 HEMATOCRIT (BEAKER) (test iacz=326) 38.2 % 34.1-44.9 MEAN CORPUSCULAR VOLUME (BEAKER) (test zatt=997) 91.4 fL 79.4-94.8 MEAN CORPUSCULAR HEMOGLOBIN (BEAKER) (test 28.5 pg 25.6-32.2 phen=538) MEAN CORPUSCULAR HEMOGLOBIN CONC (BEAKER) (test 31.2 GM/DL 32.2-35.5 otdw=582) RED CELL DISTRIBUTION WIDTH (BEAKER) (test 14.6 % 11.7-14.4 mgwk=496) PLATELET COUNT (BEAKER) (test dtwo=513) 199 K/CU MM 150-450 MEAN PLATELET VOLUME (BEAKER) (test ljvb=556) 11.4 fL 9.4-12.3 NUCLEATED RED BLOOD CELLS (BEAKER) (test 0 /100 WBC 0-0 lerb=266) NEUTROPHILS RELATIVE PERCENT (BEAKER) (test 74 % kzkh=684) LYMPHOCYTES RELATIVE PERCENT (BEAKER) (test 20 % hzpk=206) MONOCYTES RELATIVE PERCENT (BEAKER) (test 4 % acjo=378) EOSINOPHILS RELATIVE PERCENT (BEAKER) (test 2 % ivgq=915) BASOPHILS RELATIVE PERCENT (BEAKER) (test 0 % loqd=481) NEUTROPHILS ABSOLUTE COUNT (BEAKER) (test 6.05 K/ L 1.56-6.13 yarp=885) LYMPHOCYTES ABSOLUTE COUNT (BEAKER) (test 1.64 K/ L 1.18-3.74 szkc=495) MONOCYTES ABSOLUTE COUNT (BEAKER) (test 0.33 K/ L 0.24-0.36 qqiq=390) EOSINOPHILS ABSOLUTE COUNT (BEAKER) (test 0.12 K/ L 0.04-0.36 hocu=709) BASOPHILS ABSOLUTE COUNT (BEAKER) (test 0.01 K/ L 0.01-0.08 sldv=339) IMMATURE GRANULOCYTES-RELATIVE PERCENT (BEAKER) 1 % 0-1 (test vekj=2703) RAD, CHEST, 1 VIEW, NON [id number] 21:51:00Reason for exam:->Stroke work up.Is the patient ?->UnknownShould this be performed at the bedside?- >YesFINAL REPORT Clinical History: Stroke workup Comparison Study: None Findings: The cardiac silhouette is enlarged. The lungs are within normal limits. The pleural spaces are clear. No significant bony or soft tissue abnormalities are seen. Impression: Cardiomegaly. Signed: Wellington Goodwineptod Verified Date/Time: 12/07/2017 21:51:29 Reading Location: [address] Consult Reading Room POCT-GLUCOSE [id number] 11:34:00 Test Item Value Reference Range Comments POC-GLUCOSE METER (BEAKER) 84 mg/dL 70-110 TESTED AT [facility] [address] [place] [address] (test iqvn=5731) [facility] [address] [id number] 08:58:00 Test Item Value Reference Range Comments PHOSPHORUS (BEAKER) (test kkxn=579) 4.4 mg/dL 2.3-4.7 [id number] 08:58:00 Test Item Value Reference Range Comments MAGNESIUM (BEAKER) (test gpzt=368) 2.3 mg/dL 1.6-2.6 BASIC METABOLIC [id number] 08:58:00 Test Item Value Reference Range Comments SODIUM (BEAKER) (test 142 meq/L 136-145 qdqw=269) POTASSIUM (BEAKER) (test 3.9 meq/L 3.5-5.1 lkix=862) CHLORIDE (BEAKER) (test 108 meq/L 98-107 mkqx=069) CO2 (BEAKER) (test 26 meq/L 22-29 awxr=975) BLOOD UREA NITROGEN 16 mg/dL 7-21 (BEAKER) (test qvbz=270) CREATININE (BEAKER) (test 0.69 mg/dL 0.57-1.25 smel=165) GLUCOSE RANDOM (BEAKER) 86 mg/dL 70-105 (test eziw=266) CALCIUM (BEAKER) (test 8.6 mg/dL 8.4-10.2 qcau=985) EGFR (BEAKER) (test 94 mL/min/1.73 sq m ESTIMATED GFR IS NOT trpk=8668) ACCURATE CREATININE CLEARANCE IN PREDICTING GLOMERULAR FILTRATION RATE. ESTIMATED GFR IS NOT APPLICABLE FOR DIALYSIS PATIENTS. HEPATIC FUNCTION [id number] 08:58:00 Test Item Value Reference Range Comments TOTAL PROTEIN (BEAKER) (test rpqf=135) 6.8 gm/dL 6.0-8.3 ALBUMIN (BEAKER) (test fxlk=0786) 3.6 g/dL 3.5-5.0 BILIRUBIN TOTAL (BEAKER) (test lsmq=437) 0.4 mg/dL 0.2-1.2 BILIRUBIN DIRECT (BEAKER) (test yfpn=097) 0.2 mg/dL 0.1-0.5 ALKALINE PHOSPHATASE (BEAKER) (test agle=081) 59 U/L 40-150 AST (SGOT) (BEAKER) (test qiwo=388) 24 U/L 5-34 ALT (SGPT) (BEAKER) (test hdua=344) 17 U/L 6-55 POCT-GLUCOSE [id number] 08:20:00 Test Item Value Reference Range Comments POC-GLUCOSE METER (BEAKER) 143 mg/dL 70-110 TESTED AT [facility] [address] [facility] (test ilhw=9624) [facility] [address] PROTHROMBIN [id number] 05:55:00 Test Item Value Reference Range Comments PROTIME (BEAKER) (test ybri=772) 13.4 seconds 11.7-14.7 INR (BEAKER) (test ebip=195) 1.0 <=5.9 RECOMMENDED COUMADIN/WARFARIN INR THERAPY RANGESSTANDARD DOSE: 2.0 - 3.0 Includes: PROPHYLAXIS forvenous thrombosis, systemic embolization; TREATMENT for venous thrombosis and/or pulmonary embolus.HIGH RISK: Target INR is 2.5-3.5 for patients with mechanical heart valves.POCT-GLUCOSE [id number] 20:32:00 Test Item Value Reference Range Comments POC-GLUCOSE METER (BEAKER) 90 mg/dL 70-110 TESTED AT [address] (test krhx=7755) [place] [address] POCT-GLUCOSE [id number] 16:47:00 Test Item Value Reference Range Comments POC-GLUCOSE METER (BEAKER) 79 mg/dL 70-110 TESTED AT [address] (test tdyu=4495) [place] [address] POCT-GLUCOSE [id number] 07:47:00 Test Item Value Reference Range Comments POC-GLUCOSE METER (BEAKER) 97 mg/dL 70-110 TESTED AT [address] (test epem=5287) [place] [address] TROPONIN [id number] 07:02:00 Test Item Value Reference Range Comments TROPONIN I (BEAKER) (test wned=052) < ng/mL 0.00-0.03 Troponin I (TnI) levels [...] failure, acidosis, acute neurological disease, and persistent tachyarrhythmia.[id number] 07:00:00 Test Item Value Reference Range Comments PHOSPHORUS (BEAKER) (test ijmt=976) 5.0 mg/dL 2.3-4.7 [id number] 07:00:00 Test Item Value Reference Range Comments MAGNESIUM (BEAKER) (test mhrf=155) 1.9 mg/dL 1.6-2.6 BASIC METABOLIC [id number] 07:00:00 Test Item Value Reference Range Comments SODIUM (BEAKER) (test 141 meq/L 136-145 ztqc=413) POTASSIUM (BEAKER) (test 4.0 meq/L 3.5-5.1 jwzq=198) CHLORIDE (BEAKER) (test 106 meq/L 98-107 ljdi=745) CO2 (BEAKER) (test 25 meq/L 22-29 qozo=346) BLOOD UREA NITROGEN 14 mg/dL 7-21 (BEAKER) (test xfvo=745) CREATININE (BEAKER) (test 0.72 mg/dL 0.57-1.25 dipg=668) GLUCOSE RANDOM (BEAKER) 109 mg/dL 70-105 (test kchv=961) CALCIUM (BEAKER) (test 9.5 mg/dL 8.4-10.2 lslr=298) EGFR (BEAKER) (test 89 mL/min/1.73 sq m ESTIMATED GFR IS NOT xhzb=0523) ACCURATE CREATININE CLEARANCE IN PREDICTING GLOMERULAR FILTRATION RATE. ESTIMATED GFR IS NOT APPLICABLE FOR DIALYSIS PATIENTS. HEPATIC FUNCTION [id number] 07:00:00 Test Item Value Reference Range Comments TOTAL PROTEIN (BEAKER) (test fzor=593) 7.7 gm/dL 6.0-8.3 ALBUMIN (BEAKER) (test zfuv=9538) 4.0 g/dL 3.5-5.0 BILIRUBIN TOTAL (BEAKER) (test cdfg=337) 0.5 mg/dL 0.2-1.2 BILIRUBIN DIRECT (BEAKER) (test tjto=436) 0.2 mg/dL 0.1-0.5 ALKALINE PHOSPHATASE (BEAKER) (test vfry=312) 69 U/L 40-150 AST (SGOT) (BEAKER) (test sokl=719) 34 U/L 5-34 ALT (SGPT) (BEAKER) (test xdtf=817) 21 U/L 6-55 PROTHROMBIN TIME/[id number] 06:31:00 Test Item Value Reference Range Comments PROTIME (BEAKER) (test omnw=859) 14.0 seconds 11.7-14.7 INR (BEAKER) (test kpjg=033) 1.1 <=5.9 RECOMMENDED COUMADIN/WARFARIN INR THERAPY RANGESSTANDARD DOSE: 2.0 - 3.0 Includes: PROPHYLAXIS forvenous thrombosis, systemic embolization; TREATMENT for venous thrombosis and/or pulmonary embolus.HIGH RISK: Target INR is 2.5-3.5 for patients with mechanical heart valves.CBC W/PLT COUNT & AUTO [id number] 06:28:00 Test Item Value Reference Range Comments WHITE BLOOD CELL COUNT (BEAKER) (test zfbk=911) 8.9 K/ L 3.5-10.5 RED BLOOD CELL COUNT (BEAKER) (test snky=878) 4.55 M/ L 3.93-5.22 HEMOGLOBIN (BEAKER) (test lxpj=124) 13.0 GM/DL 11.2-15.7 HEMATOCRIT (BEAKER) (test zdhs=132) 42.0 % 34.1-44.9 MEAN CORPUSCULAR VOLUME (BEAKER) (test ljoa=182) 92.3 fL 79.4-94.8 MEAN CORPUSCULAR HEMOGLOBIN (BEAKER) (test 28.6 pg 25.6-32.2 kubu=801) MEAN CORPUSCULAR HEMOGLOBIN CONC (BEAKER) (test 31.0 GM/DL 32.2-35.5 taqp=096) RED CELL DISTRIBUTION WIDTH (BEAKER) (test 13.9 % 11.7-14.4 ozot=324) PLATELET COUNT (BEAKER) (test vrdb=546) 202 K/CU MM 150-450 MEAN PLATELET VOLUME (BEAKER) (test epyo=012) 12.6 fL 9.4-12.3 NUCLEATED RED BLOOD CELLS (BEAKER) (test 0 /100 WBC 0-0 qzma=000) NEUTROPHILS RELATIVE PERCENT (BEAKER) (test 70 % fgsi=612) LYMPHOCYTES RELATIVE PERCENT (BEAKER) (test 23 % fdey=552) MONOCYTES RELATIVE PERCENT (BEAKER) (test 4 % kkxu=962) EOSINOPHILS RELATIVE PERCENT (BEAKER) (test 3 % qlpb=075) BASOPHILS RELATIVE PERCENT (BEAKER) (test 0 % qufu=615) NEUTROPHILS ABSOLUTE COUNT (BEAKER) (test 6.19 K/ L 1.56-6.13 vyzm=754) LYMPHOCYTES ABSOLUTE COUNT (BEAKER) (test 2.03 K/ L 1.18-3.74 pzdd=595) MONOCYTES ABSOLUTE COUNT (BEAKER) (test 0.37 K/ L 0.24-0.36 goac=900) EOSINOPHILS ABSOLUTE COUNT (BEAKER) (test 0.24 K/ L 0.04-0.36 ghwz=868) BASOPHILS ABSOLUTE COUNT (BEAKER) (test 0.02 K/ L 0.01-0.08 jhjz=028) IMMATURE GRANULOCYTES-RELATIVE PERCENT (BEAKER) 0 % 0-1 (test pkqc=0823) CREATINE KINASE (CK), TOTAL AND [id number] 01:39:00 Test Item Value Reference Range Comments CREATINE KINASE TOTAL (BEAKER) (test wzlw=825) 55 U/L 29-200 CREATINE KINASE-MB (BEAKER) (test lfzd=967) 1.1 ng/mL 0.0-6.6 CREATINE KINASE-MB INDEX (BEAKER) (test nfsu=891) 2.0 % CK-MB Reference Range:<6.7 Normal6.7-10.0 Borderline>10.0 AbnormalTROPONIN [id number] 01:39:00 Test Item Value Reference Range Comments TROPONIN I (BEAKER) (test ewwc=748) < ng/mL 0.00-0.03 Troponin I (TnI) levels [...] acidosis, acute neurological disease, and persistent tachyarrhythmia.POCT-GLUCOSE [id number] 12:39:00 Test Item Value Reference Range Comments POC-GLUCOSE METER (BEAKER) 80 mg/dL 70-110 TESTED AT [address] (test xkfi=7080) [facility] [address] POCT-GLUCOSE [id number] 07:07:00 Test Item Value Reference Range Comments POC-GLUCOSE METER (BEAKER) 100 mg/dL 70-110 TESTED AT [address] (test bfcn=8473) [facility] [address] POCT-GLUCOSE [id number] 21:12:00 Test Item Value Reference Range Comments POC-GLUCOSE METER (BEAKER) 138 mg/dL 70-110 TESTED AT [address] (test diza=0502) [facility] [address] POCT-GLUCOSE [id number] 12:04:00 Test Item Value Reference Range Comments POC-GLUCOSE METER (BEAKER) 113 mg/dL 70-110 TESTED AT [facility] [address] [facility] (test fnzi=6896) [facility] [address] BASIC METABOLIC [id number] 04:26:00 Test Item Value Reference Range Comments SODIUM (BEAKER) (test 141 meq/L 136-145 qplh=810) POTASSIUM (BEAKER) (test 4.2 meq/L 3.5-5.1 Specimen moderately xraq=147) hemolyzed CHLORIDE (BEAKER) (test 107 meq/L 98-107 eejb=599) CO2 (BEAKER) (test 25 meq/L 22-29 oliv=249) BLOOD UREA NITROGEN 13 mg/dL 7-21 (BEAKER) (test tmuh=862) CREATININE (BEAKER) (test 0.61 mg/dL 0.57-1.25 Specimen moderately jqnd=119) hemolyzed GLUCOSE RANDOM (BEAKER) 93 mg/dL 70-105 (test juqa=041) CALCIUM (BEAKER) (test 9.0 mg/dL 8.4-10.2 dyhx=660) EGFR (BEAKER) (test 108 mL/min/1.73 sq m ESTIMATED GFR IS NOT ogfu=5055) ACCURATE CREATININE CLEARANCE IN PREDICTING GLOMERULAR FILTRATION RATE. ESTIMATED GFR IS NOT APPLICABLE FOR DIALYSIS PATIENTS. CBC W/PLT COUNT & AUTO [id number] 04:02:00 Test Item Value Reference Range Comments WHITE BLOOD CELL COUNT (BEAKER) (test olic=950) 8.4 K/ L 3.5-10.5 RED BLOOD CELL COUNT (BEAKER) (test lgao=882) 4.15 M/ L 3.93-5.22 HEMOGLOBIN (BEAKER) (test ekly=823) 11.8 GM/DL 11.2-15.7 HEMATOCRIT (BEAKER) (test rord=584) 37.9 % 34.1-44.9 MEAN CORPUSCULAR VOLUME (BEAKER) (test llbr=183) 91.3 fL 79.4-94.8 MEAN CORPUSCULAR HEMOGLOBIN (BEAKER) (test 28.4 pg 25.6-32.2 jzvw=967) MEAN CORPUSCULAR HEMOGLOBIN CONC (BEAKER) (test 31.1 GM/DL 32.2-35.5 gvob=761) RED CELL DISTRIBUTION WIDTH (BEAKER) (test 14.1 % 11.7-14.4 mbqe=189) PLATELET COUNT (BEAKER) (test awde=152) 200 K/CU MM 150-450 MEAN PLATELET VOLUME (BEAKER) (test ofgr=401) 11.9 fL 9.4-12.3 NUCLEATED RED BLOOD CELLS (BEAKER) (test 0 /100 WBC 0-0 oosr=806) NEUTROPHILS RELATIVE PERCENT (BEAKER) (test 73 % fnrz=930) LYMPHOCYTES RELATIVE PERCENT (BEAKER) (test 19 % puzc=767) MONOCYTES RELATIVE PERCENT (BEAKER) (test 5 % ydhz=014) EOSINOPHILS RELATIVE PERCENT (BEAKER) (test 3 % pbei=522) BASOPHILS RELATIVE PERCENT (BEAKER) (test 0 % emjg=826) NEUTROPHILS ABSOLUTE COUNT (BEAKER) (test 6.08 K/ L 1.56-6.13 jiiu=051) LYMPHOCYTES ABSOLUTE COUNT (BEAKER) (test 1.62 K/ L 1.18-3.74 kcdy=630) MONOCYTES ABSOLUTE COUNT (BEAKER) (test 0.39 K/ L 0.24-0.36 jnza=540) EOSINOPHILS ABSOLUTE COUNT (BEAKER) (test 0.24 K/ L 0.04-0.36 uswm=472) BASOPHILS ABSOLUTE COUNT (BEAKER) (test 0.01 K/ L 0.01-0.08 jxft=830) IMMATURE GRANULOCYTES-RELATIVE PERCENT (BEAKER) 1 % 0-1 (test olpd=5580) CLOSTRIDIUM DIFFICILE TOXIN [id number] 13:44:00 Test Item Value Reference Range Comments CLOSTRIDIUM DIFFICILE TOXIN, PCR (BEAKER) (test Not Detected Not Detected qipm=8426) This qualitative real-time polymerase chain reaction assay [...] a positive result is not recommended.CT, CTANGIO [id number] 06:59:00Addendum BeginsREPORT STATUS:A Three-dimensional post intravenous contrast images of the cerebral vasculature were created on a free standing workstation for better visualization of cerebral vascular anatomy and pathology. Signed: Skip Gardner MDReport Verified Date/Time: 04/12/2017 06:59:20 Reading Location: [address] Ortho Consult Reading RoomAddendum EndsFINAL REPORT [...] MDReport Verified Date/Time: 04/07/2017 01:12:44 Reading Location: [facility] [id number] Ortho Consult Reading Room BASIC METABOLIC [id number] 05:37:00 Test Item Value Reference Range Comments SODIUM (BEAKER) (test 142 meq/L 136-145 hcui=487) POTASSIUM (BEAKER) (test 3.7 meq/L 3.5-5.1 Specimen slightly uzpe=071) hemolyzed CHLORIDE (BEAKER) (test 105 meq/L 98-107 sazo=122) CO2 (BEAKER) (test 27 meq/L 22-29 ngby=164) BLOOD UREA NITROGEN 11 mg/dL 7-21 (BEAKER) (test wzps=759) CREATININE (BEAKER) (test 0.66 mg/dL 0.57-1.25 Specimen slightly yxwl=469) hemolyzed GLUCOSE RANDOM (BEAKER) 97 mg/dL 70-105 (test mcxf=113) CALCIUM (BEAKER) (test 9.2 mg/dL 8.4-10.2 sqda=656) EGFR (BEAKER) (test 99 mL/min/1.73 sq m ESTIMATED GFR IS NOT arnn=0636) ACCURATE CREATININE CLEARANCE IN PREDICTING GLOMERULAR FILTRATION RATE. ESTIMATED GFR IS NOT APPLICABLE FOR DIALYSIS PATIENTS. CBC (HEMOGRAM ONLY)2017-04-12 05:17:00 Test Item Value Reference Range Comments WHITE BLOOD CELL COUNT (BEAKER) (test qigm=193) 7.7 K/ L 3.5-10.5 RED BLOOD CELL COUNT (BEAKER) (test anlk=681) 4.17 M/ L 3.93-5.22 HEMOGLOBIN (BEAKER) (test bwvr=378) 12.0 GM/DL 11.2-15.7 HEMATOCRIT (BEAKER) (test vhkm=440) 38.0 % 34.1-44.9 MEAN CORPUSCULAR VOLUME (BEAKER) (test hzpy=396) 91.1 fL 79.4-94.8 MEAN CORPUSCULAR HEMOGLOBIN (BEAKER) (test 28.8 pg 25.6-32.2 wuip=954) MEAN CORPUSCULAR HEMOGLOBIN CONC (BEAKER) (test 31.6 GM/DL 32.2-35.5 wixm=170) RED CELL DISTRIBUTION WIDTH (BEAKER) (test 14.0 % 11.7-14.4 bdwg=571) PLATELET COUNT (BEAKER) (test bapa=454) 219 K/CU MM 150-450 MEAN PLATELET VOLUME (BEAKER) (test dvpn=561) 11.6 fL 9.4-12.3 NUCLEATED RED BLOOD CELLS (BEAKER) (test 0 /100 WBC 0-0 isli=682) POCT-GLUCOSE [id number] 17:55:00 Test Item Value Reference Range Comments POC-GLUCOSE METER (BEAKER) 111 mg/dL 70-110 TESTED AT [address] (test oban=3560) [place] [address] POCT-GLUCOSE [id number] 12:02:00 Test Item Value Reference Range Comments POC-GLUCOSE METER (BEAKER) 100 mg/dL 70-110 TESTED AT [address] (test nubm=1727) [place] [id number] POCT-GLUCOSE [id number] 07:50:00 Test Item Value Reference Range Comments POC-GLUCOSE METER (BEAKER) 110 mg/dL 70-110 TESTED AT [address] (test tpxx=2423) [place] [address] POCT-GLUCOSE [id number] 16:56:00 Test Item Value Reference Range Comments POC-GLUCOSE METER (BEAKER) 104 mg/dL 70-110 TESTED AT [address] (test koag=9118) [place] [id number] POCT-GLUCOSE [id number] 12:22:00 Test Item Value Reference Range Comments POC-GLUCOSE METER (BEAKER) 84 mg/dL 70-110 TESTED AT [facility] [address] (test rvdc=7763) [facility] [address] HEMOGLOBIN [id number] 08:46:00 Test Item Value Reference Range Comments HEMOGLOBIN A1C (BEAKER) (test hbam=127) 6.2 % 4.3-6.1 BASIC METABOLIC [id number] 06:42:00 Test Item Value Reference Range Comments SODIUM (BEAKER) (test 142 meq/L 136-145 zvhb=267) POTASSIUM (BEAKER) (test 4.1 meq/L 3.5-5.1 Specimen slightly dbij=310) hemolyzed CHLORIDE (BEAKER) (test 104 meq/L 98-107 xhob=093) CO2 (BEAKER) (test 28 meq/L 22-29 fpqn=458) BLOOD UREA NITROGEN 9 mg/dL 7-21 (BEAKER) (test uvuu=644) CREATININE (BEAKER) (test 0.60 mg/dL 0.57-1.25 Specimen slightly yjez=051) hemolyzed GLUCOSE RANDOM (BEAKER) 96 mg/dL 70-105 (test ohqj=974) CALCIUM (BEAKER) (test 9.1 mg/dL 8.4-10.2 utzm=377) EGFR (BEAKER) (test 110 mL/min/1.73 sq m ESTIMATED GFR IS NOT wmut=3358) ACCURATE CREATININE CLEARANCE IN PREDICTING GLOMERULAR FILTRATION RATE. ESTIMATED GFR IS NOT APPLICABLE FOR DIALYSIS PATIENTS. CBC W/PLT COUNT & AUTO [id number] 06:19:00 Test Item Value Reference Range Comments WHITE BLOOD CELL COUNT (BEAKER) (test inkq=491) 7.5 K/ L 3.5-10.5 RED BLOOD CELL COUNT (BEAKER) (test mlsd=593) 4.12 M/ L 3.93-5.22 HEMOGLOBIN (BEAKER) (test vofi=847) 11.8 GM/DL 11.2-15.7 HEMATOCRIT (BEAKER) (test wcle=681) 37.6 % 34.1-44.9 MEAN CORPUSCULAR VOLUME (BEAKER) (test uofj=422) 91.3 fL 79.4-94.8 MEAN CORPUSCULAR HEMOGLOBIN (BEAKER) (test 28.6 pg 25.6-32.2 itkf=068) MEAN CORPUSCULAR HEMOGLOBIN CONC (BEAKER) (test 31.4 GM/DL 32.2-35.5 cpzl=190) RED CELL DISTRIBUTION WIDTH (BEAKER) (test 13.8 % 11.7-14.4 pqbu=072) PLATELET COUNT (BEAKER) (test adhs=937) 192 K/CU MM 150-450 MEAN PLATELET VOLUME (BEAKER) (test tubm=891) 11.6 fL 9.4-12.3 NUCLEATED RED BLOOD CELLS (BEAKER) (test 0 /100 WBC 0-0 chjo=235) NEUTROPHILS RELATIVE PERCENT (BEAKER) (test 77 % oeie=478) LYMPHOCYTES RELATIVE PERCENT (BEAKER) (test 16 % tamq=179) MONOCYTES RELATIVE PERCENT (BEAKER) (test 4 % ibtc=283) EOSINOPHILS RELATIVE PERCENT (BEAKER) (test 2 % zasn=869) BASOPHILS RELATIVE PERCENT (BEAKER) (test 0 % exya=473) NEUTROPHILS ABSOLUTE COUNT (BEAKER) (test 5.82 K/ L 1.56-6.13 ovkq=134) LYMPHOCYTES ABSOLUTE COUNT (BEAKER) (test 1.21 K/ L 1.18-3.74 xjpl=424) MONOCYTES ABSOLUTE COUNT (BEAKER) (test 0.31 K/ L 0.24-0.36 awxd=498) EOSINOPHILS ABSOLUTE COUNT (BEAKER) (test 0.15 K/ L 0.04-0.36 ocjj=480) BASOPHILS ABSOLUTE COUNT (BEAKER) (test 0.01 K/ L 0.01-0.08 vyfv=935) IMMATURE GRANULOCYTES-RELATIVE PERCENT (BEAKER) 1 % 0-1 (test ndck=2387) POCT-GLUCOSE [id number] 12:07:00 Test Item Value Reference Range Comments POC-GLUCOSE METER (BEAKER) 110 mg/dL 70-110 TESTED AT [facility] [address] [place] [address] (test okfs=6362) [facility] [address] CT, BRAIN, WITHOUT [id number] 06:55:00FINAL REPORT Clinical history : Decreased alertnessComparison [...] Verified Date/Time: 04/09/2017 06 :55:25 Reading Location: [facility] A173BIgabj Consult Reading Room BASIC METABOLIC [id number] 05:57:00 Test Item Value Reference Range Comments SODIUM (BEAKER) (test 140 meq/L 136-145 dhtv=895) POTASSIUM (BEAKER) (test 3.7 meq/L 3.5-5.1 kjml=097) CHLORIDE (BEAKER) (test 103 meq/L 98-107 xhry=066) CO2 (BEAKER) (test 29 meq/L 22-29 rcgx=131) BLOOD UREA NITROGEN 7 mg/dL 7-21 (BEAKER) (test eaex=151) CREATININE (BEAKER) (test 0.56 mg/dL 0.57-1.25 fijj=795) GLUCOSE RANDOM (BEAKER) 110 mg/dL 70-105 (test vhou=928) CALCIUM (BEAKER) (test 8.7 mg/dL 8.4-10.2 phmn=705) EGFR (BEAKER) (test 119 mL/min/1.73 sq m ESTIMATED GFR IS NOT uxin=7036) ACCURATE CREATININE CLEARANCE IN PREDICTING GLOMERULAR FILTRATION RATE. ESTIMATED GFR IS NOT APPLICABLE FOR DIALYSIS PATIENTS. CBC W/PLT COUNT & AUTO [id number] 04:54:00 Test Item Value Reference Range Comments WHITE BLOOD CELL COUNT (BEAKER) (test rame=231) 8.1 K/ L 3.5-10.5 RED BLOOD CELL COUNT (BEAKER) (test diop=597) 4.07 M/ L 3.93-5.22 HEMOGLOBIN (BEAKER) (test zeqs=590) 11.6 GM/DL 11.2-15.7 HEMATOCRIT (BEAKER) (test jbwj=175) 37.3 % 34.1-44.9 MEAN CORPUSCULAR VOLUME (BEAKER) (test cwgd=647) 91.6 fL 79.4-94.8 MEAN CORPUSCULAR HEMOGLOBIN (BEAKER) (test 28.5 pg 25.6-32.2 jsij=565) MEAN CORPUSCULAR HEMOGLOBIN CONC (BEAKER) (test 31.1 GM/DL 32.2-35.5 umvr=775) RED CELL DISTRIBUTION WIDTH (BEAKER) (test 13.6 % 11.7-14.4 frij=190) PLATELET COUNT (BEAKER) (test nkrm=331) 171 K/CU MM 150-450 MEAN PLATELET VOLUME (BEAKER) (test yktv=108) 11.3 fL 9.4-12.3 NUCLEATED RED BLOOD CELLS (BEAKER) (test 0 /100 WBC 0-0 qvvt=516) NEUTROPHILS RELATIVE PERCENT (BEAKER) (test 77 % vvjb=608) LYMPHOCYTES RELATIVE PERCENT (BEAKER) (test 16 % vwzt=839) MONOCYTES RELATIVE PERCENT (BEAKER) (test 5 % ghhv=487) EOSINOPHILS RELATIVE PERCENT (BEAKER) (test 2 % bslf=927) BASOPHILS RELATIVE PERCENT (BEAKER) (test 0 % tdqf=153) NEUTROPHILS ABSOLUTE COUNT (BEAKER) (test 6.20 K/ L 1.56-6.13 vorf=962) LYMPHOCYTES ABSOLUTE COUNT (BEAKER) (test 1.30 K/ L 1.18-3.74 kcpt=795) MONOCYTES ABSOLUTE COUNT (BEAKER) (test 0.38 K/ L 0.24-0.36 qvcj=780) EOSINOPHILS ABSOLUTE COUNT (BEAKER) (test 0.14 K/ L 0.04-0.36 kgqi=794) BASOPHILS ABSOLUTE COUNT (BEAKER) (test 0.01 K/ L 0.01-0.08 ygjh=527) IMMATURE GRANULOCYTES-RELATIVE PERCENT (BEAKER) 1 % 0-1 (test fkwk=3600) POCT-GLUCOSE [id number] 01:34:00 Test Item Value Reference Range Comments POC-GLUCOSE METER (BEAKER) 92 mg/dL 70-110 TESTED AT [facility] [address] [facility] (test mtgt=5565) [facility] [address] POCT-GLUCOSE [id number] 19:20:00 Test Item Value Reference Range Comments POC-GLUCOSE METER (BEAKER) 85 mg/dL 70-110 TESTED AT [facility] [address] [place] [address] (test fvqc=1283) [facility] [address] CT, BRAIN, WITHOUT [id number] 15:47:00FINAL REPORT CT head without contrast. Comparisons: [...] [place] Verified Date/Time: 04/08/2017 15:47:42 POCT- GLUCOSE [id number] 12:44:00 Test Item Value Reference Range Comments POC-GLUCOSE METER (BEAKER) 94 mg/dL 70-110 TESTED AT [address] (test gtfp=1098) [facility] [address] BASIC METABOLIC [id number] 05:05:00 Test Item Value Reference Range Comments SODIUM (BEAKER) (test 142 meq/L 136-145 wkpa=701) POTASSIUM (BEAKER) (test 4.0 meq/L 3.5-5.1 isyb=295) CHLORIDE (BEAKER) (test 107 meq/L 98-107 ddwj=575) CO2 (BEAKER) (test 27 meq/L 22-29 cnsn=525) BLOOD UREA NITROGEN 9 mg/dL 7-21 (BEAKER) (test inym=707) CREATININE (BEAKER) (test 0.59 mg/dL 0.57-1.25 qrot=078) GLUCOSE RANDOM (BEAKER) 105 mg/dL 70-105 (test rirv=122) CALCIUM (BEAKER) (test 8.7 mg/dL 8.4-10.2 clql=380) EGFR (BEAKER) (test 112 mL/min/1.73 sq m ESTIMATED GFR IS NOT jntk=9247) ACCURATE CREATININE CLEARANCE IN PREDICTING GLOMERULAR FILTRATION RATE. ESTIMATED GFR IS NOT APPLICABLE FOR DIALYSIS PATIENTS. CBC W/PLT COUNT & AUTO [id number] 04:28:00 Test Item Value Reference Range Comments WHITE BLOOD CELL COUNT (BEAKER) (test xesc=112) 7.1 K/ L 3.5-10.5 RED BLOOD CELL COUNT (BEAKER) (test fitn=811) 3.90 M/ L 3.93-5.22 HEMOGLOBIN (BEAKER) (test ceqc=273) 11.0 GM/DL 11.2-15.7 HEMATOCRIT (BEAKER) (test olgv=251) 36.6 % 34.1-44.9 MEAN CORPUSCULAR VOLUME (BEAKER) (test zkki=949) 93.8 fL 79.4-94.8 MEAN CORPUSCULAR HEMOGLOBIN (BEAKER) (test 28.2 pg 25.6-32.2 nncc=535) MEAN CORPUSCULAR HEMOGLOBIN CONC (BEAKER) (test 30.1 GM/DL 32.2-35.5 ffsv=355) RED CELL DISTRIBUTION WIDTH (BEAKER) (test 14.2 % 11.7-14.4 gszh=061) PLATELET COUNT (BEAKER) (test elnu=155) 187 K/CU MM 150-450 MEAN PLATELET VOLUME (BEAKER) (test csbk=282) 10.9 fL 9.4-12.3 NUCLEATED RED BLOOD CELLS (BEAKER) (test 0 /100 WBC 0-0 jrfv=420) NEUTROPHILS RELATIVE PERCENT (BEAKER) (test 73 % jene=456) LYMPHOCYTES RELATIVE PERCENT (BEAKER) (test 19 % qyfg=077) MONOCYTES RELATIVE PERCENT (BEAKER) (test 5 % isay=427) EOSINOPHILS RELATIVE PERCENT (BEAKER) (test 2 % ajav=883) BASOPHILS RELATIVE PERCENT (BEAKER) (test 0 % zqol=171) NEUTROPHILS ABSOLUTE COUNT (BEAKER) (test 5.22 K/ L 1.56-6.13 sicb=771) LYMPHOCYTES ABSOLUTE COUNT (BEAKER) (test 1.37 K/ L 1.18-3.74 delq=514) MONOCYTES ABSOLUTE COUNT (BEAKER) (test 0.34 K/ L 0.24-0.36 ydkq=207) EOSINOPHILS ABSOLUTE COUNT (BEAKER) (test 0.13 K/ L 0.04-0.36 wenm=493) BASOPHILS ABSOLUTE COUNT (BEAKER) (test 0.01 K/ L 0.01-0.08 cpbg=272) IMMATURE GRANULOCYTES-RELATIVE PERCENT (BEAKER) 1 % 0-1 (test yqou=4311) POCT-GLUCOSE [id number] 17:32:00 Test Item Value Reference Range Comments POC-GLUCOSE METER (BEAKER) 90 mg/dL 70-110 TESTED AT [address] (test tgpi=6977) [facility] [address] POCT-GLUCOSE [id number] 12:02:00 Test Item Value Reference Range Comments POC-GLUCOSE METER (BEAKER) 91 mg/dL 70-110 TESTED AT [address] (test znnw=4638) [place] [address] EEG AWAKE AND [id number] 11:38:00Reason for exam:->R/O subclinical seizuresDATE OF [id number] OF REPORT: [id number]: [id number]: 17- 1801Start time: 09:54Stop time: 10:18ICD-10: G 93.40CPT Code: 28608 HISTORY: 41 y.o. female with history of morbid obesity, DM2 who presented today to OSH with R sided facial droop and LUE weakness . Patient was evaluated at OSH where patient was started with tPA after normal CT. Now with acute encephalopathy MEDICATIONS THAT COULD AFFECT EEG: TECHNICAL SUMMARY: This is a digital EEG recorded with 32 input channels on a [employer] system and then reviewed with bipolar and [...] additional EEG recordings. Javi Mae MDNeurophysiology Fellow TCC1Aoomossve Note: I personally reviewed this EEG record in its entirety and I agreewith the details of this report. Kitty Montejo MD, PhDEpilepsy Attending 11 :38 AMCREATINE KINASE (CK), TOTAL AND [id number] 09:35:00 Test Item Value Reference Range Comments CREATINE KINASE TOTAL (BEAKER) (test voqu=615) 52 U/L 29-200 CREATINE KINASE-MB (BEAKER) (test gwhm=284) 1.2 ng/mL 0.0-6.6 CREATINE KINASE-MB INDEX (BEAKER) (test mwab=414) 2.3 % CK-MB Reference Range:<6.7 Normal6.7-10.0 Borderline>10.0 AbnormalTROPONIN [id number] 09:31:00 Test Item Value Reference Range Comments TROPONIN I (BEAKER) (test heqd=521) < ng/mL 0.00-0.03 Troponin I (TnI) levels [...] failure, acidosis, acute neurological disease, and persistent tachyarrhythmia.[id number] 09:28:00 Test Item Value Reference Range Comments AMMONIA (BEAKER) (test yush=514) 34 mol/L 18-72 TSH/FREE T4 IF [id number] 04:28:00 Test Item Value Reference Range Comments THYROID STIMULATING HORMONE (BEAKER) (test 1.12 uIU/mL 0.35-4.94 mbpt=854) VITAMIN B12 AND [id number] 04:28:00 Test Item Value Reference Range Comments VITAMIN B12 (BEAKER) (test kzds=796) 417 pg/mL 213-816 FOLATE (BEAKER) (test shlp=837) 13.6 ng/mL >=7.0 CBC W/PLT COUNT & AUTO [id number] 03:27:00 Test Item Value Reference Range Comments WHITE BLOOD CELL COUNT (BEAKER) (test xhvg=755) 8.1 K/ L 3.5-10.5 RED BLOOD CELL COUNT (BEAKER) (test ilgq=653) 3.91 M/ L 3.93-5.22 HEMOGLOBIN (BEAKER) (test wkdw=385) 11.4 GM/DL 11.2-15.7 HEMATOCRIT (BEAKER) (test rmpy=794) 35.8 % 34.1-44.9 MEAN CORPUSCULAR VOLUME (BEAKER) (test wfib=596) 91.6 fL 79.4-94.8 MEAN CORPUSCULAR HEMOGLOBIN (BEAKER) (test 29.2 pg 25.6-32.2 euew=940) MEAN CORPUSCULAR HEMOGLOBIN CONC (BEAKER) (test 31.8 GM/DL 32.2-35.5 tdqn=558) RED CELL DISTRIBUTION WIDTH (BEAKER) (test 14.3 % 11.7-14.4 vtsl=255) PLATELET COUNT (BEAKER) (test ejrw=395) 166 K/CU MM 150-450 MEAN PLATELET VOLUME (BEAKER) (test rnoi=536) 12.4 fL 9.4-12.3 NUCLEATED RED BLOOD CELLS (BEAKER) (test 0 /100 WBC 0-0 rfkd=627) NEUTROPHILS RELATIVE PERCENT (BEAKER) (test 78 % syav=907) LYMPHOCYTES RELATIVE PERCENT (BEAKER) (test 16 % oxzi=315) MONOCYTES RELATIVE PERCENT (BEAKER) (test 4 % rdzt=958) EOSINOPHILS RELATIVE PERCENT (BEAKER) (test 1 % fbgk=545) BASOPHILS RELATIVE PERCENT (BEAKER) (test 0 % uwtr=938) NEUTROPHILS ABSOLUTE COUNT (BEAKER) (test 6.27 K/ L 1.56-6.13 lcjr=412) LYMPHOCYTES ABSOLUTE COUNT (BEAKER) (test 1.30 K/ L 1.18-3.74 dqxy=683) MONOCYTES ABSOLUTE COUNT (BEAKER) (test 0.32 K/ L 0.24-0.36 zmos=424) EOSINOPHILS ABSOLUTE COUNT (BEAKER) (test 0.09 K/ L 0.04-0.36 xeul=347) BASOPHILS ABSOLUTE COUNT (BEAKER) (test 0.02 K/ L 0.01-0.08 yzev=665) IMMATURE GRANULOCYTES-RELATIVE PERCENT (BEAKER) 1 % 0-1 (test rrrq=5935) CREATINE KINASE (CK), TOTAL AND [id number] 03:11:00 Test Item Value Reference Range Comments CREATINE KINASE TOTAL (BEAKER) (test bedt=525) 71 U/L 29-200 CREATINE KINASE-MB (BEAKER) (test estb=170) 1.5 ng/mL 0.0-6.6 CREATINE KINASE-MB INDEX (BEAKER) (test efqv=831) 2.1 % CK-MB Reference Range:<6.7 Normal6.7-10.0 Borderline>10.0 AbnormalFastingFastingTROPONIN [id number] 03:11:00 Test Item Value Reference Range Comments TROPONIN I (BEAKER) (test pcee=524) < ng/mL 0.00-0.03 Troponin I (TnI) levels [...] acute neurological disease, and persistent tachyarrhythmia.FastingBASIC METABOLIC [id number] 03:04:00 Test Item Value Reference Range Comments SODIUM (BEAKER) (test 139 meq/L 136-145 ltyn=319) POTASSIUM (BEAKER) (test 4.3 meq/L 3.5-5.1 Specimen moderately zcfz=859) hemolyzed CHLORIDE (BEAKER) (test 107 meq/L 98-107 bnvu=617) CO2 (BEAKER) (test 24 meq/L 22-29 gjna=917) BLOOD UREA NITROGEN 12 mg/dL 7-21 (BEAKER) (test jhgj=473) CREATININE (BEAKER) (test 0.68 mg/dL 0.57-1.25 Specimen moderately mrkj=328) hemolyzed GLUCOSE RANDOM (BEAKER) 175 mg/dL 70-105 (test slsv=460) CALCIUM (BEAKER) (test 8.5 mg/dL 8.4-10.2 stvp=875) EGFR (BEAKER) (test 95 mL/min/1.73 sq m ESTIMATED GFR IS NOT tqyn=1226) ACCURATE CREATININE CLEARANCE IN PREDICTING GLOMERULAR FILTRATION RATE. ESTIMATED GFR IS NOT APPLICABLE FOR DIALYSIS PATIENTS. FastingLIPID [id number] 03:04:00 Test Item Value Reference Range Comments TRIGLYCERIDES (BEAKER) (test 99 mg/dL Specimen moderately bvde=942) hemolyzed CHOLESTEROL (BEAKER) (test 139 mg/dL Specimen moderately mjhd=023) hemolyzed HDL CHOLESTEROL (BEAKER) (test 43 mg/dL klnq=478) LDL CHOLESTEROL CALCULATED 76 mg/dL (BEAKER) (test hohw=981) Triglyceride Reference Range: Low Risk <150 Borderline 150- 199 High Risk 200-499 Very High Risk >=500Cholesterol Reference Range: Low Risk <200 Borderline 200-239 High Risk > 240HDL Cholesterol Reference Range: Low Risk >=60 High Risk <40LDL Cholesterol Reference Range: Optimal <100 Near Optimal 100-129 Borderline 130-159 High 160-189 Very High >=190 FastingHEPATIC FUNCTION [id number] 03:04:00 Test Item Value Reference Range Comments TOTAL PROTEIN (BEAKER) (test 7.2 gm/dL 6.0-8.3 Specimen moderately hemolyzed zllh=157) ALBUMIN (BEAKER) (test 3.4 g/dL 3.5-5.0 Specimen moderately hemolyzed yqtj=5946) BILIRUBIN TOTAL (BEAKER) (test 0.3 mg/dL 0.2-1.2 Specimen moderately hemolyzed kuxf=712) BILIRUBIN DIRECT (BEAKER) 0.1 mg/dL 0.1-0.5 Specimen moderately hemolyzed (test kjno=923) ALKALINE PHOSPHATASE (BEAKER) 74 U/L 40-150 (test srbb=964) AST (SGOT) (BEAKER) (test 37 U/L 5-34 Specimen moderately hemolyzed xbod=076) ALT (SGPT) (BEAKER) (test 18 U/L 6-55 Specimen moderately ghcs=966) hemolyzed Fasting
[2019-05-31] MEDS ORDERED: NA CHLORIDE 0.9% 1,000 ML ONE (07:25)
[2019-05-31] MEDS ORDERED: propofoL 200 MG/20 ML VIAL IV ONE (08:13)
[2019-05-31] MEDS ORDERED: LIDOCAINE 1% MPF 5 ML VIAL ONE (08:13)
[2019-05-31 09:23] VITALS: BP 131/74; TEMP 98; O2SAT 98
--- NOTE | 2019-05-31 22:33 | OP ---
Surgeon: Zac Barillas MD Procedure Performed: Esophagogastroduodenoscopy. Indication For Procedure: Abdominal pain, epigastric; right upper quadrant pain; dyspepsia. Plan For Anesthesia: Monitored anesthesia care. Complexity: High due to patient's comorbidities, overweight, and significant morbid obesity. Technique: After obtaining informed consent from the patient, explaining risks and complications whi ch include, but are not limited to bleeding, infection, perforation, and anesthesia complication, pat ient was placed in the left lateral position and sedation was given. The scope was advanced to the out and carefully guided up until the second portion of the duodenum. After the completion of exami nation, scope and equipment were withdrawn and procedure terminated in a safe manner. Findings: Esophagus, no gross lesion seen in the upper and mid esophagus. In the distal esophagus, there was evidence of LA grade B esophagitis. Biopsies taken from the region. The GE junction was a t 36 to 37 cm. Stomach, mild patchy erythema seen in the body and antrum. Biopsies taken. Duodenum , the bulb and second portion appeared normal. Complications: None. Tolerance To Anesthesia: Excellent. Postoperative Diagnosis: Esophagitis, gastritis. Plan: 1.Await pathology results. 2.Ultrasound as already planned. 3.Oral PPI once a day. 4.Follow up in the GI clinic in 2 weeks. US/ROZINA Voice ID: [id number] Report ID: [id number]
== END 2019-05-31 09:18 | disposition home or self-care (01) ==
LOC: OR 06:54
PROVIDERS: ATTEND Internal Medicine Gastroenterology
PROC: 0DB38ZX Excision of Lower Esophagus, Via Natural or Artificial Opening Endoscopic, Diagnostic (ICD-10-PCS; principal; 2019-05-31 08:15)
DX: K20.9 Esophagitis, unspecified (principal); K29.50 Unspecified chronic gastritis without bleeding; R10.13 Epigastric pain; K76.0 Fatty (change of) liver, not elsewhere classified; K59.00 Constipation, unspecified; E66.01 Morbid (severe) obesity due to excess calories
CPT/HCPCS: 82947; 88305; 88312; J2704; J7030

== ENCOUNTER 2020-08-10 13:40 | Emergency (ER) | payer OTHER ==
--- OUTSIDE RECORDS SUMMARY | 2020-08-10 13:47 | XMS REPORT | Continuity of Care Document ---
:1975 Author Organization [facility] t Address [address] [place] [address] Care Team Providers Name Role Phone Pcp Primary Care Physician Unavailable Javier GARCIA Attending Clinician Zoie GARCIA Attending Clinician Doctor Unassigned, Name Attending Clinician Unavailable Guanako GARCIA S Attending Clinician Nichlo Morton Attending Clinician ALEISHA Attending Clinician Unavailable DIONICIO Attending Clinician Unavailable Abimael Baltazar Attending Clinician PASHA Attending Clinician Unavailable YIMI CHEUNG Attending Clinician Unavailable KAYE Attending Clinician Unavailable Zoie GARCIA Admitting Clinician Abimael Baltazar Admitting Clinician YIMI CHEUNG Admitting Clinician Unavailable KAYE Admitting Clinician Unavailable Payers Payer Name Policy Type Policy Number Effective Date Expiration Date S ourheather Problems Condition Condition Condition Status Onset Resolution Last Treating Co mments Source Name Details Category Date Date Treatment Clinician Date GASTRO Diagnosis Active 2018-09-27 Mem oria 3 07:13:00 l GASTRO 00:00: Jimmy 00 Active 09/04/2018 [facility] Cough Cough Disease Active [facility] 00 [place] Generalize Generalize Disease Active [facility] d headache d headache 3- Erik kes - 00:00: Medical 00 [place] STROKE Diagnosis Active 2018-06-13 Mem oria 1- 04:41:00 l STROKE 00:00: [place] 00 Active 06/13/2018 [facility] ACUTE Diagnosis Active 2018-06-22 Mem oria CEREBROVAS 1- 22:17:00 l CULAR ACUTE 00:00: Jimmy ACCIDENT CEREBROVAS 00 CULAR ACCIDENT Active 06/13/2018 [facility] Left-sided Left-sided Disease Active [facility] weakness weakness 12-08 [facility] 00:[facility]: Medical 00 [place] Status Status Disease Active [facility] - administra administra 00:00: Me dical tion of tion of 00 Center tPA (rtPA) tPA (rtPA) in a in a different different facility facility within the within the last 24 last 24 hours hours prior to prior to admission admission to current to current facility facility Acute Acute Disease Active [facility] ischemic ischemic 6 [facility] - stroke stroke 00:00: Medical 00 Center 3RD CONSTITUTION PARTY Diagnosis Active 2017-12-07 Memoria 12-07 23:11:00 l 3RD 00:00: Jimmy CONSTITUTION PARTY 00 Active 12/07/2017 [facility] Headache, Headache, Disease Active 2016-[address] acute acute 1-20 [facility] 00:[facility]: Medical 00 Center 3RD CONSTITUTION PARTY Diagnosis Active 2016-062017-04-06 Memoria FLIGHT 23:56:00 l 3RD 00:00: Jimmy CONSTITUTION PARTY 00 FLIGHT Active 04/06/2017 [facility] CVA CVA Disease Active 2015-[address] (cerebral (cerebral 2-26 [facility] - vascular vascular 00:00: Medica l accident) accident) 00 Cent er History of History of Problem Resolve Univers cerebrovas cerebrovas d it y of cular cular [place] accident accident Physic i ans Asthma Asthma Problem Active [facility] [place] [facility] Obstructiv Obstructiv Problem Active U nivers e sleep e sleep ity of apnea, apnea, [place] adult adult Physici ans Depression Depression Problem Active [facility] [place] [facility] Hypertensi Hypertensi Problem Active U nivers on on [facility] [place] [facility] Hyperlipid Hyperlipid Problem Active U nivers emia emia ity of [place] [facility] Chronic Chronic Problem Active Univers back pain back pain [facility] [place] [facility] GERD GERD Problem Active Univers (gastroeso (gastroeso it y of phageal phageal [place] reflux reflux Physici disease) disease) ans History of History of Problem Active U nivers kidney kidney ity of stones stones [place] Physici ans Hematuria Hematuria Problem Active Uni vers [facility] [place] [facility] ans Type 2 Type 2 Problem Active Univers diabetes diabetes ity of mellitus mellitus [place] Physici ans Lymphedema Lymphedema Problem Active U nivers of lower [place] extremity [place] Vitamin D Vitamin D Problem Active Uni vers deficiency deficiency it y of [place] Physici ans Acute Problem 2019-01-02 Memor ia respirator 13:50:12 l y failure Acute Edmund n with respirator hypoxia y failure with hypoxia 01/02/2019 [facility] Hemiplegia Problem 2019-01-02 M emoria and 13:50:12 l hemiparesi Edmund n s 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 nt side affecting left non-domina nt side 01/02/2019 [facility] Body mass Problem 2019-01-02 Me moria index 13:50:12 l (BMI) Body Jimmy 60.0-69.9, mass index adult (BMI) 60.0-69.9, adult 01/02/2019 [facility] Encephalop Problem 2019-01-02 M emoria athy, 13:50:12 l unspecifie Edmund n d Encephalop athy, unspecifie d 01/02/2019 [facility] Essential Problem 2019-01-02 Me moria (primary) 13:50:12 l hypertensi Edmund n on Essential (primary) hypertensi on 01/02/2019 [facility] Morbid Problem 2019-01-02 Memor ia (severe) 13:50:12 l obesity Morbid [place] due to (severe) excess obesity calories due to excess calories 01/02/2019 [facility] Type 2 Problem 2019-01-02 Memor ia diabetes 13:50:12 l mellitus Type 2 Edmund n with diabetes hyperglyce mellitus gloria with hyperglyce gloria 01/02/2019 [facility] Difficulty Problem 2019-01-02 M emoria in 13:50:12 l walking, Jimmy not Difficulty elsewhere in classified walking, not elsewhere classified 01/02/2019 [facility] Naranjo'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 ia palsy 13:50:12 l Naranjo's [place] palsy 01/02/2019 [facility] Encounter Problem 2019-01-02 Me moria for 13:50:12 l immunizati Edmund n on Encounter for immunizati on 01/02/2019 [facility] Migraine, Problem 2019-01-02 Me moria unspecifie 13:50:12 l d, not Jimmy intractabl Migraine, e, without unspecifie status d, not migrainosu intractabl s e, without status migrainosu s 01/02/2019 [facility] Statu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 ia post 13:50:12 l administra Status Herm mio tion of post tPA (rtPA) administra in a tion of different tPA (rtPA) facility in a within the different last 24 facility hours within the prior to last 24 admission hours to current prior to facility admission to current facility 01/02/2019 [facility] intermodal customer service Problem 2019-01-02 Me moria (current) 13:50:12 l use of [place] insulin term (current) use of insulin 01/02/2019 [facility] Family Problem 2019-01-02 Memor ia history of 13:50:12 l diabetes Family Edmund n mellitus history of diabetes mellitus 01/02/2019 [facility] Disease of Problem Active 2019-01-02 M emoria cardiovasc 13:50:12 l ular Disease Jimmy system of (disorder) cardiovasc ular system (disorder) Active Problem 01/02/2019 right leg [facility] Diabetes Problem Active 2019-01-02 Mem oria mellitus 13:50:12 l (disorder) Diabetes He rmann mellitus (disorder) Active Problem 01/02/2019 [facility] Heartburn Problem Active 2019-01-02 Me moria (finding) 13:50:12 l Jimmy Heartburn (finding) Active Problem 01/02/2019 [facility] ILLNESS, Diagnosis Active 2018-06-13 M emoria UNSPECIFIE 04:41:00 l D ILLNESS, Edmund n UNSPECIFIE D Active [facility] CEREBRAL Diagnosis Active 2018-06-22 M emoria INFARCTION 22:17:00 l , CEREBRAL Edmund n UNSPECIFIE INFARCTION D , UNSPECIFIE D Active [facility] Illness, Problem 2019-01-02 Mem oria unspecifie 13:50:12 l d Illness, Edmund n unspecifie d 01/02/2019 [facility] History of Past Illness Condition Condition Condition Status Onset Resolution Last Treating Co mments Source Name Details Category Date Date Treatment Clinician Date Cerebral Problem 2018-2019-01-02 2019-01-02 Memoria infarction 1-11 13:50:12 13:50:12 l , Cerebral 05:33: Edmund jacobson unspecifie infarction 29 d , unspecifie d 06/23/2018 01/02/2019 [facility] Allergies, Adverse Reactions, Alerts Allergy Allergy Status Severity Reaction(s) Onset Inactive Treating Comm ents Source Name Type Date Date Clinician Penicill DA Active U 2019-06 [facility] [place] [facility] war[facility]in DA Active U 2019-06 [facility] 07[facility] [place] [facility] clopidog DA Active U 2019-06 [facility] rel 07-02 [place] [facility] Clopidog Drug Active Other (See Decreases [facility] rel Intolera Comments) 3- heartrate Erik kes - nce 00:00: Medical 00 [place] Warfarin Propensi Active Nausea And 2015-[address] [facility]iting 2- [facility] - adverse 00:[facility]: Medical reaction 00 Center s warfarin warfarin Active Memori a l [place] Plavix Plavix Active Memoria l Jimmy orphenad drug Active [facility] Family History Family Member Diagnosis Comments Start Date Stop Date Source Natural mother Diabetes [facility] Natural mother Hypertension [facility] Social History Social Habit Start Date Stop Date Quantity Comments Source Sex Assigned At [facility] Cigarettes smoked 2018-08-21 2018-08-[address] [facility] - current (pack per 00:00:00 00:00:00 [facility] day) - Reported Cigarette 2018-08-21 2018-08-[address] [facility] [address] [place] - pack-years 00:00:00 00:00:00 [facility] Tobacco use and 2018-08-21 2018-08-21 Never used [facility] - exposure 00:00:00 00:00:00 [facility] Alcohol intake 2018-08-21 2018-08-21 Current [facility] - 00:00:00 00:00:00 non-drinker of [facility] nter alcohol (finding) Social History 2015-01-10 2015-01-10 [facility] 21:45:28 21:45:28 History of tobacco 1993-07-[address] [facility] - use 00:00:00 [facility] Smoking Status Start Date Stop Date Source Former smoker 2018-08-21 00:00:00 2018-08-21 00:00:00 [facility] Medications Ordered Filled Start Stop Current Ordering Indication Dosage Frequency Signature Comments Components Source Medication Medication Date Date Medication? Clinician (SIG) Name Name Oxycodone No Notes: Memori a 4-17 (Same as: l 15:24: Roxicodone ) Promethazin No Notes: Do M emoria e 4-17 not give l 15:24: IV push. (Same as: Phenergan) Hydralazine No Notes: Jose G rene 4-17 (Same as: l 15:24: Apresoline ) Push over 5 minutes Labetalol No 10 mg, 2 Jose G rene 4-17 mL, Route: l 15:24: IVP, Drug form: INJ, Q5Min, Dosing Weight 164.5, kg, PRN Elevated BP, Start date: 09/27/18 10:24:00 CDT, Duration: 5 doses or times, Stop date: Limited # of times Ondansetron No Notes: Jose G rene 17 (Same as: l 15:24: Zofran) MEDICATION WASTE Product Size: 4 mg Product Wasted: ___ mg Naloxone No Notes: Memoria -17 Same as l 15:24: Narcan Flumazenil No Notes: Memor ia 17 (Same as: l 15:24: Romazicon) albuterol Yes 2 puff, Memor ia 90 mcg/inh 4-03 INHALATION l inhalation 18:17: , PRN, 0 Her espino aerosol 00 Refill(s) Symbicort Yes 2 puff, Memor ia 160/4.5 4-03 INHALATION l inhalation 18:16: , Daily, 0 H ermann aerosol 00 Refill(s) with adapter Dexilant Yes PO, Daily, Mem oria 4-03 0 l 18:15: Refill(s) topiramate Yes 50 mg = 1 Me moria 50 MG Oral 4-03 tab, PO, l Tablet 18:15: BID, # 60 Edmund n [Topamax] 00 tab, 0 Refill(s) Amlodipine Yes PO, PRN, 0 M emoria 4-03 Refill(s) l 18:13: [place] 00 Vitamin D3 Yes = 1 cap, Mem oria 4-03 PO, Every l 18:11: Other Day, [place] 00 0 Refill(s) pantoprazol Yes 50 mg, PO, Memoria e 20 MG 4-03 BID, 0 l Enteric 18:10: Refill(s) Aure nn Coated 00 Tablet [Protonix] lisinopril Yes 10 mg = 1 Me moria 10 mg oral 4-03 tab, PO, l tablet 18:09: Daily, 0 [place] 00 Refill(s) Vitamin D Vitamin D Yes PHILL Take 1 Univers (Ergocalcif (Ergocalcif 1-04 MORAES N.P. capsule ity of katrin) 17909 katrin) [address] 00:00: two times [place] UNIT Oral UNIT Oral 00 per week P hysici Capsule Capsule ans atorvastati No 40 mg = 1 M emoria n 40 mg 1-03 tab, PO, l oral tablet 18:37: Bedtime, # Jimmy 00 30 tab, 0 Refill(s), Pharmacy: [id number] Aspirin 81 Yes 81 mg = 1 Me moria MG Chewable -03 tab, PO, l Tablet 18:37: Daily, # Jimmy 00 30 tab, 0 Refill(s), Pharmacy: [id number] Metformin Yes 500 mg, Memor ia hydrochlori -03 PO, BID, # l de 500 MG 18:37: 60 tab, 0 Her espino Oral Tablet 00 Refill(s), [Glucophage Pharmacy: ] [facility] clopidogrel No 75 mg = 1 M emoria 75 mg oral -03 tab, PO, l tablet 18:37: Daily, # Jimmy 00 30 tab, 0 Refill(s), Pharmacy: [facility] Sodium No 25 mL, Memoria Chloride 06-15 Route: IV, l 0.9% IV 13:56: Start date: 06/15/18 7:56:00 PRODUCT SAFETY TECHNICIAN, Duration: 30 day, Stop date: 07/15/18 7:55:00 PRODUCT SAFETY TECHNICIAN, PRN Line Flush BD Normal No Notes: Memori a Saline 06-15 (Same as: l Flush 13:56: BD Posiflush) Lovenox No Notes: Memoria 06-14 (Same as: l 21:00: Lovenox) venlafaxine No Notes: Jose G rene 06-14 (Same As: l 15:42: Effexor) Plavix No Notes: Memoria 06-14 (Same As: l 15:41: Plavix) Aspirin No 81 mg, Memoria 06-14 Route: PO, l 15:36: Drug form: ECTAB, Daily, Dosing Weight 165.3, kg, Priority: NOW, Start date: 06/14/18 9:36:00 PRODUCT SAFETY TECHNICIAN, Duration: 30 day, Stop date: 07/14/18 9:00:00 PRODUCT SAFETY TECHNICIAN pantoprazol No Notes: For Memoria e 06-13 IV push l 22:30: reconstitu [place] 00 te with 10 ml 0.9% sodium chloride and push over 2 minutes. (Same as: Protonix) Fentanyl No Notes: Memoria 06-13 (Same as: l 18:00: Sublimaze) Jimmy Preservat linnette free. chlorhexidi No Notes: Jose G rene ne 06-13 (Same As: l gluconate 15:00: Peridex) Herm mio 1.2 MG/ML 00 Mouthwash Famotidine No Notes: Memor ia 06-13 (Same as: l 15:00: Pepcid) Can be dilute in 5-10cc NS IVP: Slow IV push over at least 2 minutes. Saline No Notes: Memoria Flush 0.9% 06-13 (Same as: l 15:00: BD Jimmy Posiflush) Aspirin 81 No 81 mg = 1 Me moria MG Chewable 06-13 tab, PO, l Tablet 12:28: Daily, Jimmy 00 tab, 0 Refill(s) Zofran No Notes: Memoria 06-13 (Same as: l 12:17: Zofran) MEDICATION WASTE Product Size: 4 mg Product Wasted: ___ mg Promethazin No 12.5 mg, Me moria e 06-13 50 mL, l 12:17: Route: [place] 00 IVPB, Drug form: SOLN, Q6H, Dosing Weight 165.3, kg, PRN Nausea & Vomiting, Start date: 06/13/18 6:17:00 PRODUCT SAFETY TECHNICIAN, Duration: 30 day, Stop date: 07/13/18 6:16:00 PRODUCT SAFETY TECHNICIAN ocular No Notes: Memoria lubricant 06-13 (Same as: l 12:00: Refresh [place] Plus) Enoxaparin No 40 mg, Memor ia 06-13 Route: l 11:00: SUB-Q, Jimmy 00 Drug form: INJ, [id number], Dosing Weight 150.091, kg, Start date: 06/13/18 5:00:00 PRODUCT SAFETY TECHNICIAN, Duration: 30 day, Stop date: 07/12/18 5:00:00 PRODUCT SAFETY TECHNICIAN chlorhexidi No Notes: Jose G rene ne 06-13 (Same As: l gluconate 10:34: Peridex) Herm mio 1.2 MG/ML 00 Mouthwash Insulin No 60 Memoria regular 06-13 units) l 10:30: WASTE: F/P [place] - Black; E - Municipal Trash Bin Stable for 28 days at room temperatur e Expires in days from ____Date Dextrose No 12.5 gm, Memor ia 50% Syringe 06-13 25 mL, l 10:30: Route: IVP, Drug Form: INJ, Dosing Weight 150.091, kg, PRN, PRN Blood Glucose Results, Start date: 06/13/18 4:30:00 PRODUCT SAFETY TECHNICIAN, Duration: 30 day, Stop date: 07/13/18 4:29:00 PRODUCT SAFETY TECHNICIAN Glucagon No 1 mg, Memoria 06-13 Route: IM, l 10:30: Drug form: PDR/INJ, PRN, Dosing Weight 150.091, kg, PRN Blood Glucose Results, Start date: 06/13/18 4:30:00 PRODUCT SAFETY TECHNICIAN, Duration: 30 day, Stop date: 07/13/18 4:29:00 PRODUCT SAFETY TECHNICIAN Lactated No 1,000 mL, Jose G rene Ringers IV 06-13 Rate: 125 l 1,000 mL 10:29: ml/hr, Infuse over: 8 hr, Route: IV, Dosing Weight 150.091 kg, Total Volume: 1,000, Start date: 06/13/18 4:29:00 PRODUCT SAFETY TECHNICIAN, Duration: 30 day, Stop date: 07/13/18 4:28:00 PRODUCT SAFETY TECHNICIAN, 2.63, m2 Saline No Notes: Memoria Flush 0.9% 06-13 (Same as: l 10:29: BD Posiflush) Vitamin D Vitamin D Yes PHILL Take 1 Univers (Ergocalcif (Ergocalcif 9-11 MORAES N.P. capsule ity of katrin) 86472 katrin) [address]96 00:00: two times [place] UNIT Oral UNIT Oral 00 per week P hysici Capsule Capsule ans bifidobacte Yes QD Take by [facility] - infantis 11:59: daily. Medical (ALIGN) 4 58 Center mg Cap methocarbam Yes 750mg Take [address] ol 6-29 mg by [facility] - (ROBAXIN) 11:59: mouth 4 Medic al 750 MG 58 (four) Center tablet times daily as needed . venlafaxine Yes 75mg Q.5D Take [address] (EFFEXOR) 6-29 by mouth 2 Luke s - 75 MG 11:59: (two) Medical tablet 58 times Center daily. pantoprazol Yes 40mg QD Take [address] e 6-29 by mouth [facility] - (PROTONIX) 11:59: daily. Medic al 40 MG 58 Center tablet magnesium Yes 400mg Q.5D Take [address] oxide 6-29 mg by [facility] - (MAG-OX) 11:59: mouth 2 Medica l 400 mg 58 (two) Center tablet times daily. metFORMIN metFORMIN Yes Unive rs HCl - 1000 HCl - 1000 ity of MG Oral MG Oral [place] Tablet Tablet Physici ans amLODIPine amLODIPine Yes Uni vers Besylate 10 Besylate 10 i ty of MG Oral MG Oral [place] Tablet Tablet Physici ans Atorvastati Atorvastati Yes U nivers n Calcium n Calcium ity o f 40 MG Oral 40 MG Oral [place] as Tablet Tablet Physici ans Effexor XR Effexor XR Yes Uni vers 150 MG Oral 150 MG Oral i ty of Capsule Capsule [place] Extended Extended Physici Release 24 Release 24 ans Hour Hour Lisinopril Lisinopril Yes Uni vers 20 MG Oral 20 MG Oral ity of Tablet Tablet [place] Physici ans Pantoprazol Pantoprazol Yes U nivers e Sodium 40 e Sodium 40 i ty of MG Oral MG Oral [place] Tablet Tablet Physici Delayed Delayed ans Release Release ProAir HFA ProAir HFA Yes Uni vers AERS AERS ity of [place] Physici ans predniSONE predniSONE Yes Uni vers TABS TABS [facility] of [place] Physici ans Vital Signs Vital Name Observation Time Observation Value Comments Source Respitory Rate 2018-09-27 [facility] 17:30:00 Systolic (mm Hg) 2018-09-27 [facility] He rmann 17:30:00 Diastolic (mm Hg) 2018-09-27 [facility] H ermann 17:30:00 Systolic (mm Hg) 2018-09-27 [facility] rmann 17:00:00 Diastolic (mm Hg) 2018-09-27 [facility] H ermann 17:00:00 Respitory Rate 2018-09-27 [facility] 17:00:00 Systolic (mm Hg) 2018-09-27 Memorial Jonah rmann 16:45:00 Diastolic (mm Hg) 2018-09-27 [facility] H ermann 16:45:00 Respitory Rate 2018-09-27 [facility] 16:45:00 Heart Rate 2018-09-27 Oskar Toussaintan n 13:00:00 BMI Calculated 2018-09-13 [facility] 17:20:00 Weight 2018-09-13 Oskar Toussaintan n 17:20:00 Height 2018-09-13 160.02 cm Oskar Toussaintan n 17:20:00 Heart Rate 2018-09-13 Oskar Toussaintan n 17:20:00 BP Systolic 2018-08-04 153 mm[Hg] Location: [facility] 11:06:00 Position: [place] Physician s Sitting BP Diastolic 2018-08-04 96 mm[Hg] Location: [facility] 11:06:00 Position: [place] Physician s Sitting Height 2018-08-04 63 [in_us] [facility] 11:06:00 [place] Physician s Weight 2018-08-04 361 [lb_av] [facility] 11:06:00 [place] Physician s Body Mass Index 2018-08-04 63.95 kg/m2 University o f Calculated 11:06:00 [place] Physician s Temperature 2018-08-04 97.4 [degF] Method: Oral [facility] 11:06:00 [place] Physician s Heart Rate 2018-08-04 77 /min [facility] 11:06:00 [place] Physician s Systolic (mm Hg) 2018-06-15 [facility] He rmann 18:00:00 Diastolic (mm Hg) 2018-06-15 [facility] ermann 18:00:00 Respitory Rate 2018-06-15 [facility] 17:00:00 Respitory Rate 2018-06-15 [facility] 14:00:00 Systolic (mm Hg) 2018-06-15 [facility] Jonah rmann 14:00:00 Diastolic (mm Hg) 2018-06-15 [facility] ermann 14:00:00 Respitory Rate 2018-06-15 [facility] 13:00:00 Systolic (mm Hg) 2018-06-15 [facility] Jonah rmann 12:00:00 Diastolic (mm Hg) 2018-06-15 Oskar Boyd ermann 12:00:00 Temperature Oral 2018-06-15 98.4 F [facility] Jonah rmann (F) 02:00:00 Temperature Oral 2018-06-14 97.7 F [facility] Jonah rmann (F) 22:00:00 Height 2018-06-13 160.02 cm Oskar Toussaintan n 16:57:00 Height 2018-06-13 160.02 cm [facility] Edmund n 15:48:00 Height 2018-06-13 160.02 cm Oskar Edmund n 14:19:00 BMI Calculated 2018-06-13 [facility] 10:34:00 Weight 2018-06-13 [facility] Edmund n 10:34:00 BP Systolic 2018-05-09 165 mm[Hg] Location: [facility] 00:00:00 Position: [place] Physician s Sitting BP Diastolic 2018-05-09 91 mm[Hg] Location: [facility] 00:00:00 Position: [place] Physician s Sitting Height 2018-05-09 63 [in_us] University of 00:00:00 [place] Physician s Weight 2018-05-09 354.375 [lb_av] University o 00:00:00 [place] Physician s Body Mass Index 2018-05-09 62.77 kg/m2 University o Calculated 00:00:00 [place] Physician s Temperature 2018-05-09 99 [degF] Method: Oral University of 00:00:00 [place] Physician s Heart Rate 2018-05-09 66 /min University of 00:00:00 [place] Physician s BP Systolic 2018-02-21 155 mm[Hg] Location: [facility] 17:49:00 Position: [place] Physician s Sitting BP Diastolic 2018-02-21 93 mm[Hg] Location: [facility] 17:49:00 Position: [place] Physician s Sitting Height 2018-02-21 63 [in_us] [facility] 17:49:00 [place] Physician s Weight 2018-02-21 355 [lb_av] [facility] 17:49:00 [place] Physician s Body Mass Index 2018-02-21 62.89 kg/m2 University o f Calculated 17:49:00 [place] Physician s Temperature 2018-02-21 98.5 [degF] Method: Oral University of 17:49:00 [place] Physician s Heart Rate 2018-02-21 82 /min University 17:49:00 [place] Physician s BP Systolic 2018-01-17 158 mm[Hg] Location: [facility]; [facility] 14:18:00 Position: [place] Physician s Sitting BP Diastolic 2018-01-17 95 mm[Hg] Location: [facility]; [facility] 14:18:00 Position: [place] Physician s Sitting Height 2018-01-17 63 [in_us] University 14:18:00 [place] Physician s Weight 2018-01-17 354 [lb_av] University 14:18:00 [place] Physician s Body Mass Index 2018-01-17 62.71 kg/m2 University o f Calculated 14:18:00 [place] Physician s Temperature 2018-01-17 98.1 [degF] Method: [facility] 14:18:00 [place] Physician s Heart Rate 2018-01-17 80 /min University of 14:18:00 [place] Physician s BP Systolic 2017-12-16 146 mm[Hg] Location: [facility]; [facility] 09:28:00 Position: [place] Physician s Sitting BP Diastolic 2017-12-16 98 mm[Hg] Location: [facility]; [facility] 09:28:00 Position: [place] Physician s Sitting Height 2017-12-16 63 [in_us] University of 09:28:00 [place] Physician s Weight 2017-12-16 365 [lb_av] University of 09:28:00 [place] Physician s Body Mass Index 2017-12-16 64.66 kg/m2 University o f Calculated 09:28:00 [place] Physician s Temperature 2017-12-16 98.1 [degF] Method: Oral [facility] 09:28:00 [place] Physician s Heart Rate 2017-12-16 66 /min University of 09:28:00 [place] Physician s Procedures Procedure Date / Time Performing Clinician Source Performed Arthroscopy of knee with 2015-01-13 05:00:00 Roldan Marqeuz medial and lateral meniscectomy Operation<sup>1</sup> 2013-06-13 06:00:00 Everton Barr Hysterectomy 2008-06-13 06:00:00 [facility] Tubal ligation 1996-06-13 06:00:00 [facility] Her espino Operation<sup>3</sup> 1980-06-13 06:00:00 Everton Barr History of [facility] [place] [facility] Physicians [facility] History of Cholecystectomy [facility] Physicians History of Hernia repair [facility] Physicians History of Knee surgery [facility] Physicians Plan of Care Planned Activity Planned Date Details Comments Source Future Scheduled 2020-12-[address] [facility] - Test 00:00:00 (procedure) [code = [facility] [id number]] Future Scheduled 2020-02-[address] [facility] - Test 00:00:00 (#1) [code = [facility] INFLUENZA VACCINE (#1)] Future Scheduled 2018-06-[address] [facility] Test 00:00:00 WELLNESS (YEAR 2 or [facility] Center FIRST YEAR if no IPPE) [code = MEDICARE ANNUAL WELLNESS (YEAR 2 or FIRST YEAR if no IPPE)] Future Scheduled [address] Test 00:00:00 malignant neoplasm Medical C enter of cervix (procedure) [code = 505834650] Encounters Start End Encounter Admission Attending Care Care Encounter Source Date/Time Date/Time Type Type Clinicians Facility Department ID 2020-07-26 2020-07-26 Telephone Radha Herrera [id number] 00:00:00 00:00:00 Kingsley Urena [id number]2.686 [id number] 2020-07-23 2020-07-25 [facility] Kingsley Herrera [id number] 03:35:00 17:39:00 Encounter Jeanette Lino [id number] [place] [id number] 2020-07-23 2020-07-23 Orders Doctor BANKS [id number] 00:00:00 00:00:00 Only UnassignedLEO 350.1.13.10 [place] [id number] 2020-07-15 2020-07-15 Office Lucian Mujica [facility] [id number] 08:31:32 09:22:56 Visit [facility] [id number] FAMILY [id number] [facility] [id number] [place] [address] [facility] 2018-09-27 2018-09-27 Outpatient Dionicio [facility] [id number] 07:11:00 23:59:00 Kushal Gandara 2018-09-27 2018-09-27 Outpatient [facility] JUANA 7500 [facility] 07:11:00 07:11:00 2018-09-05 2018-09-05 RADHA Shultz [id number] Univers 12:45:00 12:45:00 t; PHILL MORAES NP i ty of [facility] [place] [facility] 2018-08-04 2018-08-04 RADHA Harmon [place] [id number] Univers 10:00:00 10:00:00 t; KUSHAL MORTON M.D. Surgery ity of [place] [facility] 2018-06-13 2018-06-15 Outpatient Giovanny, Antoine [facility] [id number] 04:15:00 14:49:00 Abimael 2018 2018 Favio GARCIA UTP [id number] Univers 09:45:00 09:45:00 t; DEUCE Jacobson, ity of [place] INDEUCE, Physi ci RD ans 2018-05-09 2018-05-09 RADHA Shultz [place] [id number] Univers 13:45:00 13:45:00 t; PHILL MORAES NP Surgery i ty of [place] [facility] 2018-05-02 2018-05-02 RADHA Shultz [id number] Univers 13:00:00 13:00:00 t; PHILL MORAES NP i ty of [facility] [place] [place] [facility] 2018-04-06 2018-04-06 RADHA Shultz [id number] Univers 12:00:00 12:00:00 t; PHILL MORAES NP i ty of [facility] [place] [place] [facility] 2018-02-21 2018-02-21 Favio RADHA MORAES [id number] Univers 13:30:00 13:30:00 t; PHILL MORAES NP Surgery i ty of [place] [facility] 2018-01-17 2018-01-17 AmarjitRADHA Knapp [id number] Univers 15:00:00 15:00:00 t; PHILL MORAES NP Surgery i ty of [place] [facility] 2018-01-06 2018-01-06 Appointtyson [facility] [id number] Univers 10:30:00 10:30:00 t; DEUCE Jacobson, ity of [facility] [place], DEUCE, Physi ci RD ans 2017-12-16 2017-12-16 AmarjitRADHA Sanz [id number] Univers 09:15:00 09:15:00 t; KUSHAL MORTON M.D. Surgery ity dl FATIMA M.D. 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 ANTRUM BIOPSY - Gastric Antrum Bx B. GASTRO-ESOPHAGEAL JUNCTION BIOPSY - GE Junction Bx ADDITION AL TESTS ASR DISCLAIMER FOR IMMUNOHISTOCHEMISTRY: This test was developed and its performanc e characteristics determined by the [facility]. It has not been cleared or approved by the US Food and Drug Administration. The FDA has determined that such clearance or approval is not necessary. The test is used for clinical purposes. It shoul d not be regarded as investigational or for research. [facility] is cert ified under CLIA-88 (Clinical Laboratory Improvement Amendment of 1988) as qualified to perfor m high-complexity clinical laboratory testing. All controls show appropriate reactivity. CLINICAL HISTORY GERD FINAL DIAGNOSIS A. STOMACH, ANTRUM, BIOPSY: - REACTIVE GASTROPATHY - NEGATIVE FOR HELICOBACTER PYLORI BY IMMUN OHISTOCHEMISTRY - NO INTESTINAL METAPLASIA, DYSPLASIA, OR MALIGNANCY IS IDENTIFIED B. GASTROESOPHAGEAL JUNCTION, BIOPSY: - SQUAMOCOLUMNAR MUCOSA WITH R EFLUX ESOPHAGITIS - NO INTESTINAL METAPLASIA, DYSPLASIA, OR MALIGNANCY IS IDENTIFIED CPT: 49599 x2, 27441 CONTINUED ON NEXT PAGE RUN DATE: 05/07/20 [facility] - LAB PAGE 2 RUN TIME: 902 Specimen Inquiry RUN USER: INTERFACE SPEC #: [id number] PATIENT: GIOVANNY HARRISON #[id number] (Continued) ------- GROSS DESCRI PTION Received are two containers of formalin labeled with the patient's name, medical re cord number, and specimen source. A. Received labeled "gastric antrum biopsy" are two mcpherson soft tissue biopsies which measure 0.2 cm and 0.4 cm in greatest dimension; they are submitted in toto in "A". B. Received labeled "GE junction biopsy" are two mcpherson soft tis lisa biopsies which measure 0.1 cm and 0.4 cm in greatest dimension; they are submitte d in toto in "B". /ph MICROSCOPIC DESCRIPTION Performed. ------ Signed SIGNATURE ON Collette MillerAngeles MD 05/07/20 0903 END OF REPORT [id number] 15:00:00 Test Item Value Reference Range Interpretation Comments GLUBED (test code = GLUBED) 148 MG/DL 70-105 H COVID 19 Asymptomatic IH [id number] 13:12:00 Test Item Value Reference Range Interpretation Comments COVID 19 NEGATIVE NEGATIVE Negative result s, from Asymptomatic IH AG patients with symptom (test code = onset beyondfiv e days, COVNONPUIAG) should be treat ed as presumptive and confirmationwit h a molecular assay , if necessary for patientmanageme nt, may be performed. Nega tive results do not ruleout COVID-19 and sh ould not be used as the sole basis fortreatment or patient management deci sions, includinginfect ion control decisio ns. Negative result s should beconsidered in the context of a pa tient's recent exposure s,history and the presenc e of clinical signs and symptomsconsist ent with COVID-19. AKXTIHQRJQ6221-55-32 18:47:001.7Meparial YvmxamhILQRJJSBRQ6442-68-62 18:47:000.3 [facility] WsngzydPCQNTRLITX5126-25-46 18:47:0070.8[facility] HermannHEMATOLOGY 2018-09-13 18:47:0032.7[facility] NqlnxbzOUSQLYIFHN5756-72-02 18:47:0039.9[facility] VosiardMOHZXKHFJE6347-23-57 18:47:0087.0[facility] HramuacSRIOEPNHUT7365-28-34 18:47:00 Test Item Value Reference Range Interpretation Comments MCH (test code = MCH) 28.5 pg 27.0-31.0 [facility] CxiwaecYCMBDBYKNT4295-48-08 18:47:0014.8[facility] HermannHEMATOLOGY 2018-09-13 18:47:0013.0[facility] XwphpyuUZCUMDMKMU6414-42-67 18:47:05329Mwqvqalm RgihdphMSAYFXCRFY7805-60-76 18:47:0010.2[facility] GtdmxgqUZWOZMXKRV5425-24-53 18:47:004.59[facility] IrusfdcHHFUYKEQLD8478-89-31 18:47:007.4[facility] [place] SPECIAL CKKVEOSQI1379-73-41 18:47:006.2[facility] HermannCHEM TQDJG8356-63-45 18:47:35791Ejnxqquk HermannCHEM CLLAP9541-28-66 18:47:003.8[facility] HermannCHEM TPRZX0330-30-24 18:47:00 Test Item Value Reference Range Interpretation Comments A/G Ratio (test code = A/G Ratio) 1.0 1 0.7-1.6 [facility] HermannCHEM NOUTR2528-97-89 18:47:000.3[facility] HermannCHEM PANEL 2018-09-13 18:47:0010.8[facility] HermannCHEM SZKZP1364-31-68 18:47:00 Test Item Value Reference Range Interpretation Comments B/C Ratio (test code = B/C Ratio) 23 1 6-25 [facility] HermannCHEM ZYDZC4161-69-27 18:47:003.8[facility] HermannCHEM PANEL 2018-09-13 18:47:18581Kroirzfj HermannCHEM BEOLS2162-34-77 18:47:30796Hpmnbnvk HermannCHEM HGHUX2498-70-08 18:47:0023[facility] HermannCHEM IGWWS1998-18-04 18:47:0088[facility] HermannCHEM CEAJH6281-19-13 18:47:0021[facility] HermannCHEM ABTUO6285-69-22 18:47:0028[facility] HermannCHEM EZLAF4914-32-57 18:47:008.8 [facility] HermannCHEM PCERW1779-98-30 18:47:003.7[facility] HermannCHEM PANEL 2018-09-13 18:47:007.5[facility] HermannCHEM DJGTQ3901-05-76 18:47:0084Mem[facility] HermannCHEM IYROV2003-73-58 18:47:000.74[facility] HermannCHEM LZFUW2582-96-90 18:47:0017[facility] HkoykdiWDIXJYOEII4204-08-78 18:47:000.1[facility] Jimmy IYYGAFSSFP5077-16-16 18:47:004.4[facility] MxhfeumPOSYYJHTCQ9713-24-12 18:47:001.6 [facility] MqxtismBCNLSUBFTI0046-15-63 18:47:000.2[facility] HermannHEMATOLOGY 2018-09-13 18:47:0023.0[facility] MhymsqvAGIWSFBACH7836-32-76 18:47:005.3[facility] HermannRAD, CHEST, 2 SZNQD2742-14-27 15:49:00Reason for exam:->coughShould this be performed at the bedside?->NoFINAL REPORT Chest, PA and lateral. History: Cough. Comparison: 12/07/2017. Discussion: Mild cardiomegaly. The lungs are clear without evidence of consolidation or effusion. There are no acute osseous abnormalities. The soft tissues are unremarkable. IMPRESSION: No acute cardiopulmonary abnormality. Signed: Joseph Ford MDReport Verified Date/Time: 08/21/2018 15:49:59 [facility] Electronically signed by: JOSEPH FORD M.D. on 03:49 NWDOKMGKPYYVCB2935-28-33 10:53:0011.8[facility] HermannELECTROLYTES 2018-06-14 10:53:67155Dhkkrlte FyxxlxiVFXRDECLLUJS5553-01-77 10:53:003.8[facility] KketpamNDIKUGUFLNDR8418-44-96 10:53:10779Ppptedsa XfprdtfEWJNQTXMPCCL2903-67-94 10:53:008.1[facility] KqsynkiRNMSDVOLJLHX9116-34-13 10:53:000.51[facility] Jimmy GOMKPCQNNICL6143-31-12 10:53:46148Iwxdiysr AspbciyAGFXAAHFTRWF2297-22-59 10:53:0028[facility] QkufuaaJICQSUBNBEIF4490-79-13 10:53:0011[facility] Jimmy KTEBWAZRDLCP8621-77-00 10:53:64990Vwzrtatw CzdfraxRZNEDSXVJP1422-15-54 10:53:00 1.1[facility] UgcrxdyXEKTMXUYMA4248-70-84 10:53:005.5[facility] HermannHEMATOLOGY 2018-06-14 10:53:000.1[facility] GzwshjgBBPJKSEPRL2408-30-12 10:53:000.3[facility] LqpoksnGDISYXANQY0815-93-58 10:53:0015.3[facility] QqaadkzROWCHGSSRJ5541-24-02 10:53:0078.5[facility] EwgwapqUPPSLYMFHS6665-23-73 10:53:001.2[facility] [place] EYLVSOWIPS8311-44-84 10:53:004.3[facility] OfayhsmZYMBXWTDUX0805-60-77 10:53:000.7 [facility] WmrygegEVOQGVNPAV9095-26-38 10:53:0032.5[facility] HermannHEMATOLOGY 2018-06-14 10:53:0015.1[facility] EbdnpurTHZICPSQHY8509-61-42 10:53:12533Gwiqvgqy YyrjtcmWFJSZNHVFE7587-36-41 10:53:009.4[facility] KlcqrrjUAQSWYJNHD9749-12-25 10:53:003.87[facility] WohlnktBAPMUXBPYC0612-83-89 10:53:0011.0[facility] [place] JYARBMBNDN4666-71-34 10:53:0087.6[facility] EnorilmKCPCGNTSLE6739-85-26 10:53:00 Test Item Value Reference Range Interpretation Comments MCH (test code = MCH) 28.5 pg 27.0-31.0 [facility] HrmstjaHFLTOUXYNZ5352-82-12 10:53:0033.9[facility] HermannHEMATOLOGY 2018-06-14 10:53:007.0[facility] HermannCHEM YGBJS0349-82-81 11:52:0087[facility] HermannCHEM JMDXT3647-78-09 11:52:20880Rytmdlzh HermannCHEM GDAFY1472-10-54 11:52:95809Htlqhnvn HermannCHEM HVZOV9531-89-71 11:52:77642Mpgbgxcj HermannCHEM VDNLM7418-06-73 11:52:004.0[facility] HermannCHEM TCGUU2830-78-38 11:52:000.63 [facility] HermannCHEM CKVDT0838-76-53 11:52:0018[facility] HermannCHEM PANEL 2018-06-13 11:52:001.0[facility] HermannCHEM LFCRP3183-49-63 11:52:0029[facility] HermannCHEM PQSSQ0117-71-12 11:52:007.5[facility] HermannCHEM FEPRS3809-34-61 11:52:003.2[facility] HermannCHEM SOTQC7052-33-10 11:52:0025[facility] HermannCHEM TCPFY6515-18-30 11:52:0013Mem[facility] HermannCHEM ESUTQ5987-76-65 11:52:21320 [facility] HermannCHEM RZOUT3931-71-19 11:52:008.3[facility] HermannCHEM PANEL 2018-06-13 11:52:00 Test Item Value Reference Range Interpretation Comments B/C Ratio (test code = B/C Ratio) 21 1 6-25 [facility] HermannCHEM WWBMU8509-01-56 11:52:004.3[facility] HermannCHEM PANEL 2018-06-13 11:52:00 Test Item Value Reference Range Interpretation Comments A/G Ratio (test code = A/G Ratio) 0.7 1 0.7-1.6 [facility] HermannCHEM YTNPI0703-48-95 11:52:0014.0[facility] HermannHEMATOLOGY 2018-06-13 11:52:0012.6[facility] WqezqtvRWJDJELJGW7896-56-39 11:52:0088.3[facility] RsrmpudCCKNQGFCRB3370-46-06 11:52:0032.8[facility] NpwjfliNJNYGIDTIK2573-58-29 11:52:00 Test Item Value Reference Range Interpretation Comments MCH (test code = MCH) 29.0 pg 27.0-31.0 [facility] AzdyjjsNEMBHXOLOK8412-81-61 11:52:004.34[facility] HermannHEMATOLOGY 2018-06-13 11:52:009.2[facility] VbybjifBDVFVGXGIC4060-94-77 11:52:0010.1[facility] BhdtcnaYGZJHQGSCU1100-85-89 11:52:15816Gzydhcts XpcudliYLALXUWKRJ9741-55-98 11:52:0015.2[facility] IkevawxPRLFMJOTKP2165-19-68 11:52:0038.3[facility] Jimmy YPHXJBPETM4867-27-27 11:52:00 Test Item Value Reference Range Interpretation Comments PTT (test code = PTT) 37.5 s 22.9-35.8 [facility] VnwklbhSJPALHORMX4998-40-47 11:52:00 Test Item Value Reference Range Interpretation Comments PT (test code = PT) 15.4 s 12.0-14.7 [facility] RlgjazbUMSAWXNJGT6664-77-72 11:52:00 Test Item Value Reference Range Interpretation Comments INR (test code = INR) 1.24 1 0.85-1.17 [facility] OxikczdWJRQBSELKD5300-25-13 11:52:000.2[facility] HermannHEMATOLOGY 2018-06-13 11:52:000.3[facility] WasffivUGLTWSJJWR7183-85-86 11:52:003.7[facility] JxbpeaoCTMUKHUDFJ2872-59-34 11:52:0013.6[facility] TcrnjpdHVEZVYQCHF9208-62-57 11:52:007.6[facility] HclxtlbHRQHZJXWWF3869-08-17 11:52:001.2[facility] Jimmy OECLFVEVWA3511-83-88 11:52:000.3[facility] VmnpcglMFAHUPNLNE9751-67-38 11:52:00 82.2[facility] UlwvwraERXUWN6725-76-88 11:52:00 Test Item Value Reference Range Interpretation Comments CHD Risk (test code = CHD Risk) 2.88 1 3.90-5.80 [facility] CiscyalZIZOGS3673-15-11 11:52:00 Test Item Value Reference Range Interpretation Comments VLDL (test code = VLDL) 18 1 [facility] DutimnwWINJKG1002-59-25 11:52:0048[facility] DnxhziiGMOYOY3675-73-49 11:52:0072[facility] EebaqbcSXFKNG0823-43-40 11:52:0092[facility] HermannLIPIDS 2018-06-13 11:52:50569Dokunhkk HermannSPECIAL IGTQZDKNK5461-90-80 11:52:006.1 [facility] HermannURINE AND TPMKX8916-72-09 11:52:00Negative *NA*(06/13/18 5:52 AM) [facility]annUR[facility] AND SHAFP7010-76-28 11:52:00Moderate *ABN*(06/13/18 5:52 AM) [facility] AND VERRS1433-79-55 11:52:00Negative (06/13/18 5:52 AM) [facility] AND PUUAY2071-37-50 11:52:001[facility]annURINE AND ZNIZN7956-58-44 11:52:00Negative (06/13/18 5:52 AM)[facility]annURINE AND STOOL 2018-06-13 11:52:007[facility] HermannURINE AND ALOFA6795-58-11 11:52:00 Test Item Value Reference Range Interpretation Comments UA pH (test code = UA pH) 6.0 1 5.0-8.0 [facility]ann[facility] AND LZVPC9828-57-66 11:52:00Clear (06/13/18 5:52 AM)[facility] AND FAOEL4472-74-86 11:52:00Negative (06/13/18 5:52 AM)[facility] AND ANGKB0251-98-98 11:52:00Negative *NA*(06/13/18 5:52 AM)[facility]ann[facility] AND BLDNB8913-02-43 11:52:00 Test Item Value Reference Range Interpretation Comments UA Spec Grav (test code = UA Spec 1.019 1 Grav) [facility] [place][QL[facility]] FOLATE, GDFCO1078-30-44 10:35:01 Test Item Value Reference Range Interpretation Comments Folate Level (test code = 2284-8) 14.1 ng/ml >=3.0 [facility]] VITAMIN D, 25-HYDROXY, LC/MS/AE3570-99-33 10:35:01 Test Item Value Reference Range Interpretation Comments Vitamin D, 25-OH, 17.5 ng/ml 30.0-100.0 Reference range is based Total (test code on recommen dations in the = Vitamin D, EndocrineSociet y Clinical 25-OH, Total) Practice Guide line (J Clin Endocrinol Tlxfc6353;96:19 11-1930) [facility][H] Vit F6504-10-72 10:35:01 Test Item Value Reference Range Interpretation Comments Vitamin A 26.3 ug/dL 20.1-62.0 Please note r eferenceinterval Level (test changeReferen ce intervals for code = vitamin A deter mined from Vitamin A LabCorpinternal studies. Level) Individuals wit h vitamin A less than 20ug/dL ar e considered vitamin A defic ient and those withserum jyoti ntrations less than 10 ug/dL a re consideredsever sidney deficient.This test was developed and i ts performance characteristics determined by [employer]. It has not been cleared orappro mamie by the Food and Drug Administration. Performed At: [facility] [address] [place], [place] [id number] ra Latasha GARCIA Ph:[phone] [facility][H] Vitamin E Gbf2697-23-24 10:35:01 Test Item Value Reference Range Interpretation Comments Alpha-Tocoph 7.9 mg/L 7.0-25.1 katrin (test code = Alpha-Tocoph katrin) Gamma-Tocoph 2.6 mg/L 0.5-5.5 Reference inter vals for alpha and katrin (test gamma-tocophero ldetermined from code = National Health and Nutrition Gamma-Tocoph ExaminationSurv ey, 1993-9538. katrin) Individuals wit h alpha-tocopherol levelsless than 5.0 mg/L are considered jammie min E deficient.This test was developed and its perform ance characteristics determined by [facility]. It has not been cleared orapproved by [facility] Food and Drug Administration. Performed At: [facility] [place], [place] [id number] Pagan MD Ph:[phone] [facility]] CBC (INCLUDES DIFF/PLT)2018-01-06 10:09:01 Test Item Value Reference Range Interpretation Comments WBC (test code = 6690-2) 7.1 {K/CMM} 3.7-10.4 RBC (test code = 789-8) 4.30 {M/CMM} 4.20-5.40 Hgb (test code = 718-7) 12.3 g/dl 12.0-16.0 Hct (test code = 92454-9) 38.0 % 36.0-48.0 MCV (test code = 787-2) 88.4 fL 80.0-98.0 MCH (test code = 785-6) 28.5 pg 27.0-31.0 MCHC (test code = 786-4) 32.3 g/dl 32.0-36.0 RDW; Above High Threshold (test 15.9 % 11.5-14.5 code = 788-0) Platelet (test code = 25699-6) 222 {K/CMM} 133-450 Mean Platelet Volume; Above High 10.7 fL 7.4-10.4 Threshold (test code = 30655-6) [facility]] Elynnfgysbye7944-25-91 10:09:01 Test Item Value Reference Range Interpretation Comments Segmented Neutrophils (test code 70.9 % 45.0-75.0 = 32945-2) Monocytes (test code = 54885-1) 4.2 % 2.0-12.0 Lymphocytes (test code = 00743-5) 22.0 % 20.0-40.0 Eosinophils (test code = 12452-7) 2.5 % 0.0-4.0 Basophils (test code = 706-2) 0.4 % 0.0-1.0 Segs-Bands # (test code = 5.0 {K/CMM} 1.5-8.1 65949-1) Lymphocytes # (test code = 1.6 {K/CMM} 1.0-5.5 35500-3) Monocytes # (test code = 87054-2) 0.3 {K/CMM} 0.0-0.8 Eosinophils # (test code = 0.2 {K/CMM} 0.0-0.5 87762-8) [facility]] PTH, INTACT (WITHOUT CALCIUM)2018-01-06 10:09:01 Test Item Value Reference Range Interpretation Comments Parathyroid Hormone Intact (test 64.9 pg/ml 18.4-80.1 code = 2731-8) [facility]] CMP W/EUGN9265-55-18 10:09:01 Test Item Value Reference Range Interpretation Comments Sodium Level 143 {mEq/l} 135-145 (test code = 2951-2) Potassium Level 4.6 {mEq/l} 3.5-5.1 (test code = 2823-3) Chloride Level 107 {mEq/l} 95-109 (test code = 5-0) Carbon Dioxide 30 {mEq/l} 24-32 (test code = 2027-9) AGAP (test code = 10.6 {mEq/l} 10.0-20.0 24922-3) Glucose Lvl; 108 mg/dl 70-99 Adult reference range Above High values reflect the Threshold (test clinical adri delinesof the code = 2345-7) [employer]. Creatinine Lvl 0.60 mg/dl 0.50-1.40 (test code = 2160-0) Blood Urea 12 mg/dl 7-22 Nitrogen (test code = 3094-0) BUN/Creatinine 20 6-25 Ratio (test code = 3097-3) Total Protein 7.3 g/dl 6.4-8.4 (test code = 2885-2) Albumin Lvl (test 3.6 g/dl 3.5-5.0 code = 1751-7) Globulin (test 3.7 g/dl 2.7-4.2 code = 72034-1) A/G Ratio (test 1.0 0.7-1.6 code = 1759-0) Calcium Level 8.7 mg/dl 8.5-10.5 Total (test code = 43705-8) ALT (test code = 27 u/l 0-65 1743-4) AST (test code = 32 u/l 0-37 45790-8) Bili Total (test 0.4 mg/dl 0.2-1.3 code = 1975-2) Alk Phos (test 82 u/l 39-136 code = 1783-0) eGFR (test code = 113 The eGFR i s calculated 73205-1) {ML/MIN/1.7} using the CKD-E PI formula. In mos t young, healthyindividu als the eGFR will be >9 0 mL/min/1.73m2. The eGFR declines with a ge. AneGFR of 60-89 may be normal in some population s, particularly th e elderly, forwhom the CKD -EPI formula has not been extensively soila idated. Use of the eGFR isnot recommended in the following populations:Ind ividuals with unstable c reatinine concentrations, including patient s and those with seri ous co-morbid conditions.Lorri ents with extremes in mus analy mass or diet.The gavino a above are obtained fr om the National Kidney Disease Education Progr am(NKDEP) which gris quinteros recommends that when the eGFR is used in patientswith ex tremes of body mass index for purposes of dotty g dosing, the eGFR should be multiplied by t he estimated BMI. [facility]] FOLATE, [id number] 10:09:01 Test Item Value Reference Range Interpretation Comments Folate Level (test code = 2284-8) 11.3 ng/ml >=3.0 [facility]] IRON, [id number] 10:09:01 Test Item Value Reference Range Interpretation Comments Iron (test code = 2498-4) 59 ug/dL 30-160 [facility]] LIPID [id number] 10:09:01 Test Item Value Reference Range Interpretation Comments Chol (test code = 2093-3) 125 mg/dl <=199 Trig; Above High Threshold (test 154 mg/dl <=149 code = 2571-8) HDL Cholesterol; Below Low 36 mg/dl >=61 Threshold (test code = 2085-9) CHD Risk; Below Low Threshold (test 3.47 3.90-5.80 code = 17448-5) LDL (test code = 99269-5) 58 mg/dl <=99 VLDL (test code = VLDL) 31 [facility]] VITAMIN [id number] 10:09:01 Test Item Value Reference Range Interpretation Comments Vitamin B12 Level (test code = 655 pg/ml 254-1320 2132-9) [facility]] TSH, 3RD GENERATION W/REFLEX TO FT4 2018-01-06 10:09:01 Test Item Value Reference Range Interpretation Comments TSH (test code = 41698-2) 0.846 {uIU/ml} 0.360-3.740 [facility]] HEMOGLOBIN [id number] 10:09:01 Test Item Value Reference Range Interpretation Comments Hemoglobin A1c; Above High Threshold 6.4 % <=5.6 (test code = 4548-4) [facility]] VITAMIN D, 25-HYDROXY, [id number]/MS/[id number] 10:09:01 Test Item Value Reference Range Interpretation Comments Vitamin D, 25-OH, 16.6 ng/ml 30.0-100.0 Reference range is based Total (test code on recommen dations in the = Vitamin D, EndocrineSociet y Clinical 25-OH, Total) Practice Guide line (J Clin Endocrinol Oxdyj0983;96:19 11-1930) [facility][H] Vitamin E [id number] 10:09:01 Test Item Value Reference Range Interpretation Comments Alpha-Tocoph 5.7 mg/L 7.0-25.1 katrin (test code = Alpha-Tocoph katrin) Gamma-Tocoph 2.4 mg/L 0.5-5.5 Reference inter vals for alpha and katrin (test gamma-tocophero ldetermined from code = National Health and Nutrition Gamma-Tocoph ExaminationSurv ey, 3979-6561. katrin) Individuals wit h alpha-tocopherol levelsless than 5.0 mg/L are considered jammie min E deficient.This test was developed and its perform ance characteristics determined by [facility]. It has not been cleared orapproved by [facility] Food and Drug Administration. Performed At: [facility] [place], [place] [id number] Murdock MD Ph :[phone] [facility][H] Vit [id number] 10:09:01 Test Item Value Reference Range Interpretation Comments Vitamin A 22.1 ug/dL 33.1-100.0 Reference inter vals for vitamin Level (test A determined fr om code = NationalHealth and Nutrition Vitamin A Examination [place], Level) .Indiv iduals with vitamin A less than 20 ug/dL areconsidered v itamin A deficient and t hose with serumconcentrat ions less than 10 ug/dL are co nsidered severelydeficie nt.This test was developed and i ts performance characteristics determined by [facility]. It has not been cleared orappro mamie by the Food and Drug Administration. Performed At: [address] [id number] Murdock MD Ph:[phone] [facility]] VITAMIN B1, WHOLE [id number] 10:09:01 Test Item Value Reference Range Interpretation Comments Vitamin B1 128.4 66.5-200.0 This test was d eveloped and its Level (test nmol/L performance code = characteristics determined by Vitamin B1 [facility]. It has not been Level) cleared orappro mamie by the Food and Drug Administration. Performed At: [address] [id number] Murdock MD Ph:[phone] [facility] [id number] 13:30:00 Test Item Value Reference Range Interpretation Comments CULTURE (BEAKER) (test code = 1095) No growth POCT-GLUCOSE [id number] 08:21:00 Test Item Value Reference Range Interpretation Comments POC-GLUCOSE METER 99 mg/dL 70-110 TESTED AT [facility] (test code = [facility] [address] 1538) POCT-GLUCOSE [id number] 06:14:00 Test Item Value Reference Range Interpretation Comments POC-GLUCOSE METER 105 mg/dL 70-110 TESTED AT [facility] 6720 ([facility] (test code = [facility] 1538) [address] BASIC METABOLIC [id number] 05:56:00 Test Item Value Reference Range Interpretation Comments SODIUM (BEAKER) 140 meq/L 136-145 (test code = 381) POTASSIUM (BEAKER) 3.9 meq/L 3.5-5.1 (test code = 379) CHLORIDE (BEAKER) 105 meq/L 98-107 (test code = 382) CO2 (BEAKER) (test 28 meq/L 22-29 code = 355) BLOOD UREA NITROGEN 11 mg/dL 7-21 (BEAKER) (test code = 354) CREATININE (BEAKER) 0.62 mg/dL 0.57-1.25 (test code = 358) GLUCOSE RANDOM 107 mg/dL 70-105 H (BEAKER) (test code = 652) CALCIUM (BEAKER) 8.8 mg/dL 8.4-10.2 (test code = 697) EGFR (BEAKER) (test 106 mL/min/1.73 ESTIM ATED GFR IS code = 1092) sq m NOT ACCURATE CREATININE CLEARANCE IN PREDICTING GLOMERULAR FILTRATION RATE . ESTIMATED GFR I S NOT APPLICABLE FOR DIALYSIS PATIEN TS. CBC W/PLT COUNT & AUTO [id number] 05:15:00 Test Item Value Reference Range Interpretation Comments WHITE BLOOD CELL COUNT (BEAKER) 6.7 K/ L 3.5-10.5 (test code = 775) RED BLOOD CELL COUNT (BEAKER) 4.08 M/ L 3.93-5.22 (test code = 761) HEMOGLOBIN (BEAKER) (test code = 11.4 GM/DL 11.2-15.7 410) HEMATOCRIT (BEAKER) (test code = 37.6 % 34.1-44.9 411) MEAN CORPUSCULAR VOLUME (BEAKER) 92.2 fL 79.4-94.8 (test code = 753) MEAN CORPUSCULAR HEMOGLOBIN 27.9 pg 25.6-32.2 (BEAKER) (test code = 751) MEAN CORPUSCULAR HEMOGLOBIN CONC 30.3 GM/DL 32.2-35.5 L (BEAKER) (test code = 752) RED CELL DISTRIBUTION WIDTH 14.6 % 11.7-14.4 H (BEAKER) (test code = 412) PLATELET COUNT (BEAKER) (test 192 K/CU MM 150-450 code = 756) MEAN PLATELET VOLUME (BEAKER) 11.9 fL 9.4-12.3 (test code = 754) NUCLEATED RED BLOOD CELLS 0 /100 WBC 0-0 (BEAKER) (test code = 413) NEUTROPHILS RELATIVE PERCENT 69 % (BEAKER) (test code = 429) LYMPHOCYTES RELATIVE PERCENT 25 % (BEAKER) (test code = 430) MONOCYTES RELATIVE PERCENT 5 % (BEAKER) (test code = 431) EOSINOPHILS RELATIVE PERCENT 2 % (BEAKER) (test code = 432) BASOPHILS RELATIVE PERCENT 0 % (BEAKER) (test code = 437) NEUTROPHILS ABSOLUTE COUNT 4.59 K/ L 1.56-6.13 (BEAKER) (test code = 670) LYMPHOCYTES ABSOLUTE COUNT 1.65 K/ L 1.18-3.74 (BEAKER) (test code = 414) MONOCYTES ABSOLUTE COUNT (BEAKER) 0.30 K/ L 0.24-0.36 (test code = 415) EOSINOPHILS ABSOLUTE COUNT 0.11 K/ L 0.04-0.36 (BEAKER) (test code = 416) BASOPHILS ABSOLUTE COUNT (BEAKER) 0.01 K/ L 0.01-0.08 (test code = 417) IMMATURE GRANULOCYTES-RELATIVE 0 % 0-1 PERCENT (BEAKER) (test code = 2801) POCT-GLUCOSE [id number] 00:23:00 Test Item Value Reference Range Interpretation Comments POC-GLUCOSE METER 111 mg/dL 70-110 H TESTED AT [facility] 6720 (BEAKER) (test code = KENNETH Kinney [facility] 1538) [id number] MR, MRA, BRAIN, WITHOUT [id number] 20:13:00Reason for exam:->Ischemic Stroke EvaluationFINAL REPORT MRA Head CLINICAL HISTORY: Stroke TECHNIQUE: MRA of the head utilizing 3-D fltt-vw-vrqcdk technique, with 3-D reconstructions. COMPARISON: None FINDINGS: There is noevidence of intracranial aneurysm, focal stenosis, or major branch vessel occlusion. There is a origin of the right posterior cerebral artery. IMPRESSION: No evidence for a major [place] of Willisproximal branch vessel occlusion. MRA Neck CLINICAL HISTORY: Stroke TECHNIQUE: MRA of the neck utilizing 2-D and 3-D tfag-wo-wfixjz technique, with 3-D reconstructions. COMPARISON: None FINDINGS: Thecarotid arteries in the neck are patent including their bifurcations. There is antegrade flow in the vertebral arteries in the neck. IMPRESSION: No evidence of hemodynamically significant stenosis in the cervical carotid or vertebral arteries by NASCET criteria. Signed: Madeleine Macias Verified Date/Time: 12/08/2017 20:13:50 Reading Location: [facility] Reading Room MR, MRA, NECK, WITHOUT IV [id number] 20:13:00Reason for exam:- >Ischemic Stroke EvaluationFINAL REPORT MRA Head CLINICAL HISTORY: Stroke TECHNIQUE: MRA of the head utilizing 3-D ryzg-qo-culjjl technique, with 3-D reconstructions. COMPARISON: None FINDINGS: There is no evidence of intracranial aneurysm, focal stenosis, or major branch vessel occlusion. There is a origin of the right posterior cerebral artery. IMPRESSION: No evidence for a major [place] of Willisproximal branch vessel occlusion. MRA Neck CLINICAL HISTORY: Stroke TECHNIQUE: MRA of the neck util izing 2-D and 3-D fsib-le-bixqhj technique, with 3-D reconstructions. COMPARISON: None FINDINGS: Thecarotid arteries in the neck are patent including their bifurcations. There is antegrade flow in the vertebral arteries in the neck. IMPRESSION: No evidence of hemodynamically significant stenosis in the cervical carotid or vertebral arteries by NASCET criteria. Signed: Madeleine Macias Verified Date/Time: 12/08/2017 20:13:50 Reading Location: [facility] Reading Room MR, BRAIN, WITHOUT [id number] 20:02:00Reason for exam:->StrokeWhat is the patient's sedation [...] infarct, hemorrhage, or hydrocephalus. Signed: Madeleine Macias MDReport Verified Date/Time: 12/08/2017 20:02:46 Reading Location: [facility] Reading Room 08:02 PMPOCT-GLUCOSE [id number] 15:23:00 Test Item Value Reference Range Interpretation Comments POC-GLUCOSE METER 106 mg/dL 70-110 TESTED AT [place] [address] ([facility]) (test code = [place] 1538) [address] HEMOGLOBIN [id number] 11:57:00 Test Item Value Reference Range Interpretation Comments HEMOGLOBIN A1C ([facility]) (test code = 6.6 % 4.3-6.1 H 368) FastingTROPONIN [id number] 09:50:00 Test Item Value Reference Range Interpretation Comments TROPONIN I ([facility]) (test code = 397) < ng/mL 0.00-0.03 Troponin I (TnI) levels [...] acidosis, acute neurological disease, and persistent tachyarrhythmia.POCT-GLUCOSE [id number] 06:23:00 Test Item Value Reference Range Interpretation Comments POC-GLUCOSE METER 110 mg/dL 70-110 TESTED AT [place] [address] ([facility]) (test code = [place] 1538) [address] POCT-GLUCOSE [id number] 06:15:00 Test Item Value Reference Range Interpretation Comments POC-GLUCOSE METER 149 mg/dL 70-110 H TESTED AT [place] [address] ([facility]) (test code = [place] 1538) [address] VITAMIN B12 AND [id number] 05:50:00 Test Item Value Reference Range Interpretation Comments VITAMIN B12 ([facility]) (test code = 688 pg/mL [id number] 774) FOLATE ([facility]) (test code = 362) 12.1 ng/mL >=7.0 TSH/FREE T4 IF [id number] 05:29:00 Test Item Value Reference Range Interpretation Comments THYROID STIMULATING HORMONE 0.66 uIU/mL 0.35-4.94 (BEAKER) (test code = 772) BASIC METABOLIC [id number] 05:11:00 Test Item Value Reference Range Interpretation Comments SODIUM (BEAKER) 140 meq/L 136-145 (test code = 381) POTASSIUM (BEAKER) 4.3 meq/L 3.5-5.1 Specimen slightly (test code = 379) hemolyzed CHLORIDE (BEAKER) 105 meq/L 98-107 (test code = 382) CO2 (BEAKER) (test 27 meq/L 22-29 code = 355) BLOOD UREA NITROGEN 8 mg/dL 7-21 (BEAKER) (test code = 354) CREATININE (BEAKER) 0.67 mg/dL 0.57-1.25 Specimen slightly (test code = 358) hemolyzed GLUCOSE RANDOM 136 mg/dL 70-105 H (BEAKER) (test code = 652) CALCIUM (BEAKER) 8.7 mg/dL 8.4-10.2 (test code = 697) EGFR (BEAKER) (test 97 mL/min/1.73 ESTIMA ADIA GFR IS code = 1092) sq m NOT ACCURATE CREATININE CLEARANCE IN PREDICTING GLOMERULAR FILTRATION RATE . ESTIMATED GFR I S NOT APPLICABLE FOR DIALYSIS PATIEN TS. FastingLIPID [id number] 05:11:00 Test Item Value Reference Range Interpretation Comments TRIGLYCERIDES (BEAKER) 83 mg/dL Speci men slightly (test code = 540) hemolyzed CHOLESTEROL (BEAKER) 140 mg/dL Specime n slightly (test code = 631) hemolyzed HDL CHOLESTEROL (BEAKER) 38 mg/dL (test code = 976) LDL CHOLESTEROL 85 mg/dL CALCULATED (BEAKER) (test code = 633) Triglyceride Reference Range: Low Risk <150 Borderline 150-199 High Risk 200-499 Very High Risk >=500Cholesterol Reference Range: Low Risk <200 Borderline 200-239 High Risk >240HDL Cholesterol Reference Range: Low Risk >=60 High Risk <40LDL Cholesterol Reference Range: Optimal <100 Near Optimal 100-129 Borderline 130-159 High 160-189 Very High >=190 FastingRAPID DRUG SCREEN, [id number] 04:34:00 Test Item Value Reference Range Interpretation Comments BARBITURATE URINE (BEAKER) (test Negative Negative code = 725) BENZODIAZEPINE SCREEN URINE (BEAKER) Negative Negative (test code = 726) COCAINE (METAB.) SCREEN (BEAKER) Negative Negative (test code = 1164) METHADONE SCREEN (BEAKER) (test code Negative Negative = 1436) OPIATE SCREEN URINE (BEAKER) (test Negative Negative code = 734) CANNABINOID SCREEN URINE (BEAKER) Negative Negative (test code = 727) AMPH/METHAMPH SCREEN (BEAKER) (test Negative Negative code = 1438) PHENCYCLIDINE SCREEN URINE (BEAKER) Negative Negative (test code = 608) OXYCODONE SCREEN URINE (BEAKER) Negative Negative (test code = 2761) DRUG CUTOFF CONC.Cocaine 300 ng/mL Cannabinoid 50 ng/mL Benzodiazepine 200 ng/mLBarbiturate 200 ng/mLPhencyclidine 25 ng/mLOpiate 300 ng/mLMethadone 300 ng/mLAmphetamine/ 1000 ng/mL MethamphetamineOxycodone 300 ng/mLThis assay provides an unconfirmed qualitative test result for the clinical management of patients in emergency situations. Chain of custody not maintained. Some htwj-fnd-tzdepsg medications, as well as adulterants, may cause inaccurate results. Clinical correlation should be applied. A more comprehensive drug screen or confirmation of a detected drug may be performed upon request.URINALYSIS W/ [id number] 04:09:00 Test Item Value Reference Range Interpretation Comments COLOR (BEAKER) (test Yellow code = 470) CLARITY (BEAKER) (test Clear code = 469) SPECIFIC GRAVITY UA 1.039 1.001-1.035 H (BEAKER) (test code = 468) PH UA (BEAKER) (test 5.5 5.0-8.0 code = 467) PROTEIN UA (BEAKER) 10 mg/dL Negative A (test code = 464) GLUCOSE UA (BEAKER) Negative Negative (test code = 365) KETONES UA (BEAKER) Negative Negative (test code = 371) BILIRUBIN UA (BEAKER) Negative Negative (test code = 462) BLOOD UA (BEAKER) (test Small Negative A code = 461) NITRITE UA (BEAKER) Negative Negative (test code = 465) LEUKOCYTE ESTERASE UA Negative Negative (BEAKER) (test code = 466) UROBILINOGEN UA (BEAKER) 0.2 mg/dL 0.2-1.0 (test code = 463) RBC UA (BEAKER) (test 1 /HPF code = 519) WBC UA (BEAKER) (test < /HPF code = 520) MUCUS (BEAKER) (test Occasional code = 1574) SQUAMOUS EPITHELIAL < /HPF (BEAKER) (test code = 516) CRYSTALS, URINE (BEAKER) Rare (test code = 1521) SOURCE(BEAKER) (test Urine, Sterile code = 2795) Collection CBC W/PLT COUNT & AUTO [id number] 03:54:00 Test Item Value Reference Range Interpretation Comments WHITE BLOOD CELL COUNT (BEAKER) 7.2 K/ L 3.5-10.5 (test code = 775) RED BLOOD CELL COUNT (BEAKER) 4.10 M/ L 3.93-5.22 (test code = 761) HEMOGLOBIN (BEAKER) (test code = 11.6 GM/DL 11.2-15.7 410) HEMATOCRIT (BEAKER) (test code = 37.5 % 34.1-44.9 411) MEAN CORPUSCULAR VOLUME (BEAKER) 91.5 fL 79.4-94.8 (test code = 753) MEAN CORPUSCULAR HEMOGLOBIN 28.3 pg 25.6-32.2 (BEAKER) (test code = 751) MEAN CORPUSCULAR HEMOGLOBIN CONC 30.9 GM/DL 32.2-35.5 L (BEAKER) (test code = 752) RED CELL DISTRIBUTION WIDTH 14.6 % 11.7-14.4 H (BEAKER) (test code = 412) PLATELET COUNT (BEAKER) (test 194 K/CU MM 150-450 code = 756) MEAN PLATELET VOLUME (BEAKER) 11.7 fL 9.4-12.3 (test code = 754) NUCLEATED RED BLOOD CELLS 0 /100 WBC 0-0 (BEAKER) (test code = 413) NEUTROPHILS RELATIVE PERCENT 73 % (BEAKER) (test code = 429) LYMPHOCYTES RELATIVE PERCENT 21 % (BEAKER) (test code = 430) MONOCYTES RELATIVE PERCENT 4 % (BEAKER) (test code = 431) EOSINOPHILS RELATIVE PERCENT 2 % (BEAKER) (test code = 432) BASOPHILS RELATIVE PERCENT 0 % (BEAKER) (test code = 437) NEUTROPHILS ABSOLUTE COUNT 5.22 K/ L 1.56-6.13 (BEAKER) (test code = 670) LYMPHOCYTES ABSOLUTE COUNT 1.47 K/ L 1.18-3.74 (BEAKER) (test code = 414) MONOCYTES ABSOLUTE COUNT (BEAKER) 0.31 K/ L 0.24-0.36 (test code = 415) EOSINOPHILS ABSOLUTE COUNT 0.13 K/ L 0.04-0.36 (BEAKER) (test code = 416) BASOPHILS ABSOLUTE COUNT (BEAKER) 0.01 K/ L 0.01-0.08 (test code = 417) IMMATURE GRANULOCYTES-RELATIVE 0 % 0-1 PERCENT (BEAKER) (test code = 2801) TROPONIN [id number] 23:56:00 Test Item Value Reference Range Interpretation Comments TROPONIN I (BEAKER) (test code = 397) < ng/mL 0.00-0.03 Troponin I (TnI) levels [...] acute neurological disease, and persistent tachyarrhythmia.HEPATIC FUNCTION [id number] 23:49:00 Test Item Value Reference Range Interpretation Comments TOTAL PROTEIN (BEAKER) (test code = 6.8 gm/dL 6.0-8.3 770) ALBUMIN (BEAKER) (test code = 1145) 3.7 g/dL 3.5-5.0 BILIRUBIN TOTAL (BEAKER) (test code 0.4 mg/dL 0.2-1.2 = 377) BILIRUBIN DIRECT (BEAKER) (test 0.2 mg/dL 0.1-0.5 code = 706) ALKALINE PHOSPHATASE (BEAKER) (test 75 U/L 40-150 code = 346) AST (SGOT) (BEAKER) (test code = 30 U/L 5-34 353) ALT (SGPT) (BEAKER) (test code = 17 U/L 6-55 347) PROTHROMBIN [id number] 23:40:00 Test Item Value Reference Range Interpretation Comments PROTIME (BEAKER) (test code = 15.8 seconds 11.7-14.7 H 759) INR (BEAKER) (test code = 370) 1.3 <=5.9 RECOMMENDED COUMADIN/WARFARIN INR THERAPY RANGESSTANDARD DOSE: 2.0 - 3.0 Includes: PROPHYLAXIS forvenous thrombosis, systemic embolization; TREATMENT for venous thrombosis and/or pulmonary embolus.HIGH RISK: Target INR is 2.5-3.5 for patients with mechanical heart valves.CBC W/PLT COUNT & AUTO DIFFERENTIAL 2017-12-07 23:27:00 Test Item Value Reference Range Interpretation Comments WHITE BLOOD CELL COUNT (BEAKER) 8.2 K/ L 3.5-10.5 (test code = 775) RED BLOOD CELL COUNT (BEAKER) 4.18 M/ L 3.93-5.22 (test code = 761) HEMOGLOBIN (BEAKER) (test code = 11.9 GM/DL 11.2-15.7 410) HEMATOCRIT (BEAKER) (test code = 38.2 % 34.1-44.9 411) MEAN CORPUSCULAR VOLUME (BEAKER) 91.4 fL 79.4-94.8 (test code = 753) MEAN CORPUSCULAR HEMOGLOBIN 28.5 pg 25.6-32.2 (BEAKER) (test code = 751) MEAN CORPUSCULAR HEMOGLOBIN CONC 31.2 GM/DL 32.2-35.5 L (BEAKER) (test code = 752) RED CELL DISTRIBUTION WIDTH 14.6 % 11.7-14.4 H (BEAKER) (test code = 412) PLATELET COUNT (BEAKER) (test 199 K/CU MM 150-450 code = 756) MEAN PLATELET VOLUME (BEAKER) 11.4 fL 9.4-12.3 (test code = 754) NUCLEATED RED BLOOD CELLS 0 /100 WBC 0-0 (BEAKER) (test code = 413) NEUTROPHILS RELATIVE PERCENT 74 % (BEAKER) (test code = 429) LYMPHOCYTES RELATIVE PERCENT 20 % (BEAKER) (test code = 430) MONOCYTES RELATIVE PERCENT 4 % (BEAKER) (test code = 431) EOSINOPHILS RELATIVE PERCENT 2 % (BEAKER) (test code = 432) BASOPHILS RELATIVE PERCENT 0 % (BEAKER) (test code = 437) NEUTROPHILS ABSOLUTE COUNT 6.05 K/ L 1.56-6.13 (BEAKER) (test code = 670) LYMPHOCYTES ABSOLUTE COUNT 1.64 K/ L 1.18-3.74 (BEAKER) (test code = 414) MONOCYTES ABSOLUTE COUNT (BEAKER) 0.33 K/ L 0.24-0.36 (test code = 415) EOSINOPHILS ABSOLUTE COUNT 0.12 K/ L 0.04-0.36 (BEAKER) (test code = 416) BASOPHILS ABSOLUTE COUNT (BEAKER) 0.01 K/ L 0.01-0.08 (test code = 417) IMMATURE GRANULOCYTES-RELATIVE 1 % 0-1 PERCENT (BEAKER) (test code = 2801) RAD, CHEST, 1 VIEW, NON [id number] 21:51:00Reason for exam:->Stroke work up.Is the patient ?->UnknownShould this be performed at the bedside?->YesFINAL REPORT Clinical History: Stroke workup Comparison Study: None Findings: The cardiac silhouette is enlarged. The lungs are within normal limits. The pleural spaces are clear. No significant bony or soft tissue abnormalities are seen. Impression: Cardiomegaly. Signed: Shelley Goodwin MDReport Verified Date/Time: 12/07/2017 21:51:29 Reading Location: [facility] Consult Reading Room POCT-GLUCOSE [id number] 11:34:00 Test Item Value Reference Range Interpretation Comments POC-GLUCOSE METER 84 mg/dL 70-110 TESTED AT [facility] 6720 (BEAKER) (test code = KENNETH Kinney [facility] [address] 1538) [id number] 08:58:00 Test Item Value Reference Range Interpretation Comments PHOSPHORUS (BEAKER) (test code = 4.4 mg/dL 2.3-4.7 604) [id number] 08:58:00 Test Item Value Reference Range Interpretation Comments MAGNESIUM (BEAKER) (test code = 2.3 mg/dL 1.6-2.6 627) BASIC METABOLIC [id number] 08:58:00 Test Item Value Reference Range Interpretation Comments SODIUM (BEAKER) 142 meq/L 136-145 (test code = 381) POTASSIUM (BEAKER) 3.9 meq/L 3.5-5.1 (test code = 379) CHLORIDE (BEAKER) 108 meq/L 98-107 H (test code = 382) CO2 (BEAKER) (test 26 meq/L 22-29 code = 355) BLOOD UREA NITROGEN 16 mg/dL 7-21 (BEAKER) (test code = 354) CREATININE (BEAKER) 0.69 mg/dL 0.57-1.25 (test code = 358) GLUCOSE RANDOM 86 mg/dL 70-105 (BEAKER) (test code = 652) CALCIUM (BEAKER) 8.6 mg/dL 8.4-10.2 (test code = 697) EGFR (BEAKER) (test 94 mL/min/1.73 ESTIMA ADIA GFR IS code = 1092) sq m NOT ACCURATE CREATININE CLEARANCE IN PREDICTING GLOMERULAR FILTRATION RATE . ESTIMATED GFR I S NOT APPLICABLE FOR DIALYSIS PATIEN TS. HEPATIC FUNCTION [id number] 08:58:00 Test Item Value Reference Range Interpretation Comments TOTAL PROTEIN (BEAKER) (test code = 6.8 gm/dL 6.0-8.3 770) ALBUMIN (BEAKER) (test code = 1145) 3.6 g/dL 3.5-5.0 BILIRUBIN TOTAL (BEAKER) (test code 0.4 mg/dL 0.2-1.2 = 377) BILIRUBIN DIRECT (BEAKER) (test 0.2 mg/dL 0.1-0.5 code = 706) ALKALINE PHOSPHATASE (BEAKER) (test 59 U/L 40-150 code = 346) AST (SGOT) (BEAKER) (test code = 24 U/L 5-34 353) ALT (SGPT) (BEAKER) (test code = 17 U/L 6-55 347) POCT-GLUCOSE [id number] 08:20:00 Test Item Value Reference Range Interpretation Comments POC-GLUCOSE METER 143 mg/dL 70-110 H TESTED AT [facility] 6720 (BEAKER) (test code = [place] 1538) [id number] PROTHROMBIN [id number] 05:55:00 Test Item Value Reference Range Interpretation Comments PROTIME (BEAKER) (test code = 13.4 seconds 11.7-14.7 759) INR (BEAKER) (test code = 370) 1.0 <=5.9 RECOMMENDED COUMADIN/WARFARIN INR THERAPY RANGESSTANDARD DOSE: 2.0 - 3.0 Includes: PROPHYLAXIS forvenous thrombosis, systemic embolization; TREATMENT for venous thrombosis and/or pulmonary embolus.HIGH RISK: Target INR is 2.5-3.5 for patients with mechanical heart valves.POCT-GLUCOSE [id number] 20:32:00 Test Item Value Reference Range Interpretation Comments POC-GLUCOSE METER 90 mg/dL 70-110 TESTED AT [place] [address] ([facility]) (test code = [facility] [address] 1538) POCT-GLUCOSE [id number] 16:47:00 Test Item Value Reference Range Interpretation Comments POC-GLUCOSE METER 79 mg/dL 70-110 TESTED AT [place] [address] ([facility]) (test code = [facility] [address] 1538) POCT-GLUCOSE [id number] 07:47:00 Test Item Value Reference Range Interpretation Comments POC-GLUCOSE METER 97 mg/dL 70-110 TESTED AT [place] [address] ([facility]) (test code = [facility] [address] 1538) TROPONIN [id number] 07:02:00 Test Item Value Reference Range Interpretation Comments TROPONIN I ([facility]) (test code = 397) < ng/mL 0.00-0.03 Troponin I (TnI) levels [...] failure, acidosis, acute neurological disease, and persistent tachyarrhythmia.[id number] 07:00:00 Test Item Value Reference Range Interpretation Comments PHOSPHORUS (MILAGROS) (test code = 5.0 mg/dL 2.3-4.7 H 604) [id number] 07:00:00 Test Item Value Reference Range Interpretation Comments [facility]IUM [facility] (test code = 1.9 mg/dL 1.6-2.6 627) BASIC METABOLIC [id number] 07:00:00 Test Item Value Reference Range Interpretation Comments SODIUM (BEAKER) 141 meq/L 136-145 (test code = 381) POTASSIUM (BEAKER) 4.0 meq/L 3.5-5.1 (test code = 379) CHLORIDE (BEAKER) 106 meq/L 98-107 (test code = 382) CO2 (BEAKER) (test 25 meq/L 22-29 code = 355) BLOOD UREA NITROGEN 14 mg/dL 7-21 (BEAKER) (test code = 354) CREATININE (BEAKER) 0.72 mg/dL 0.57-1.25 (test code = 358) GLUCOSE RANDOM 109 mg/dL 70-105 H (BEAKER) (test code = 652) CALCIUM (BEAKER) 9.5 mg/dL 8.4-10.2 (test code = 697) EGFR (BEAKER) (test 89 mL/min/1.73 ESTIMA ADIA GFR IS code = 1092) sq m NOT ACCURATE CREATININE CLEARANCE IN PREDICTING GLOMERULAR FILTRATION RATE . ESTIMATED GFR I S NOT APPLICABLE FOR DIALYSIS PATIEN TS. HEPATIC FUNCTION [id number] 07:00:00 Test Item Value Reference Range Interpretation Comments TOTAL PROTEIN (BEAKER) (test code = 7.7 gm/dL 6.0-8.3 770) ALBUMIN (BEAKER) (test code = 1145) 4.0 g/dL 3.5-5.0 BILIRUBIN TOTAL (BEAKER) (test code 0.5 mg/dL 0.2-1.2 = 377) BILIRUBIN DIRECT (BEAKER) (test 0.2 mg/dL 0.1-0.5 code = 706) ALKALINE PHOSPHATASE (BEAKER) (test 69 U/L 40-150 code = 346) AST (SGOT) (BEAKER) (test code = 34 U/L 5-34 353) ALT (SGPT) (BEAKER) (test code = 21 U/L 6-55 347) PROTHROMBIN TIME/[id number] 06:31:00 Test Item Value Reference Range Interpretation Comments PROTIME (BEAKER) (test code = 14.0 seconds 11.7-14.7 759) INR (BEAKER) (test code = 370) 1.1 <=5.9 RECOMMENDED COUMADIN/WARFARIN INR THERAPY RANGESSTANDARD DOSE: 2.0 - 3.0 Includes: PROPHYLAXIS forvenous thrombosis, systemic embolization; TREATMENT for venous thrombosis and/or pulmonary embolus.HIGH RISK: Target INR is 2.5-3.5 for patients with mechanical heart valves.CBC W/PLT COUNT & AUTO DIFFERENTIAL 2017-05-03 06:28:00 Test Item Value Reference Range Interpretation Comments WHITE BLOOD CELL COUNT (BEAKER) 8.9 K/ L 3.5-10.5 (test code = 775) RED BLOOD CELL COUNT (BEAKER) 4.55 M/ L 3.93-5.22 (test code = 761) HEMOGLOBIN (BEAKER) (test code = 13.0 GM/DL 11.2-15.7 410) HEMATOCRIT (BEAKER) (test code = 42.0 % 34.1-44.9 411) MEAN CORPUSCULAR VOLUME (BEAKER) 92.3 fL 79.4-94.8 (test code = 753) MEAN CORPUSCULAR HEMOGLOBIN 28.6 pg 25.6-32.2 (BEAKER) (test code = 751) MEAN CORPUSCULAR HEMOGLOBIN CONC 31.0 GM/DL 32.2-35.5 L (BEAKER) (test code = 752) RED CELL DISTRIBUTION WIDTH 13.9 % 11.7-14.4 (BEAKER) (test code = 412) PLATELET COUNT (BEAKER) (test 202 K/CU MM 150-450 code = 756) MEAN PLATELET VOLUME (BEAKER) 12.6 fL 9.4-12.3 H (test code = 754) NUCLEATED RED BLOOD CELLS 0 /100 WBC 0-0 (BEAKER) (test code = 413) NEUTROPHILS RELATIVE PERCENT 70 % (BEAKER) (test code = 429) LYMPHOCYTES RELATIVE PERCENT 23 % (BEAKER) (test code = 430) MONOCYTES RELATIVE PERCENT 4 % (BEAKER) (test code = 431) EOSINOPHILS RELATIVE PERCENT 3 % (BEAKER) (test code = 432) BASOPHILS RELATIVE PERCENT 0 % (BEAKER) (test code = 437) NEUTROPHILS ABSOLUTE COUNT 6.19 K/ L 1.56-6.13 H (BEAKER) (test code = 670) LYMPHOCYTES ABSOLUTE COUNT 2.03 K/ L 1.18-3.74 (BEAKER) (test code = 414) MONOCYTES ABSOLUTE COUNT (BEAKER) 0.37 K/ L 0.24-0.36 H (test code = 415) EOSINOPHILS ABSOLUTE COUNT 0.24 K/ L 0.04-0.36 (AKER) (test code = 416) BASOPHILS ABSOLUTE COUNT (AKER) 0.02 K/ L 0.01-0.08 (test code = 417) IMMATURE GRANULOCYTES-RELATIVE 0 % 0-1 PERCENT (AKER) (test code = 2801) CREATINE KINASE (CK), TOTAL AND [id number] 01:39:00 Test Item Value Reference Range Interpretation Comments CREATINE KINASE TOTAL ([facility]) 55 U/L 29-200 (test code = 380) CREATINE KINASE-MB ([facility]) (test 1.1 ng/mL 0.0-6.6 code = 750) CREATINE KINASE-MB INDEX ([facility]) 2.0 % (test code = 395) CK-MB Reference Range:<6.7 Normal6.7-10.0 Borderline>10.0 AbnormalTROPONIN [id number] 01:39:00 Test Item Value Reference Range Interpretation Comments TROPONIN I ([facility]) (test code = 397) < ng/mL 0.00-0.03 Troponin I (TnI) levels [...] acidosis, acute neurological disease, and persistent tachyarrhythmia.POCT-GLUCOSE [id number] 12:39:00 Test Item Value Reference Range Interpretation Comments POC-GLUCOSE METER 80 mg/dL 70-110 TESTED AT [place] [address] ([facility]) (test code = [facility] [address] 1538) POCT-GLUCOSE [id number] 07:07:00 Test Item Value Reference Range Interpretation Comments POC-GLUCOSE METER 100 mg/dL 70-110 TESTED AT [place] [address] ([facility]) (test code = [facility] 1538) [id number] POCT-GLUCOSE [id number] 21:12:00 Test Item Value Reference Range Interpretation Comments POC-GLUCOSE METER 138 mg/dL 70-110 H TESTED AT [place] [address] ([facility]) (test code = [facility] 1538) [address] POCT-GLUCOSE [id number] 12:04:00 Test Item Value Reference Range Interpretation Comments POC-GLUCOSE METER 113 mg/dL 70-110 H TESTED AT [facility] 6720 (BEAKER) (test code = [place] 1538) [address] BASIC METABOLIC [id number] 04:26:00 Test Item Value Reference Range Interpretation Comments SODIUM (BEAKER) 141 meq/L 136-145 (test code = 381) POTASSIUM (BEAKER) 4.2 meq/L 3.5-5.1 Specimen moderately (test code = 379) hemolyzed CHLORIDE (BEAKER) 107 meq/L 98-107 (test code = 382) CO2 (BEAKER) (test 25 meq/L 22-29 code = 355) BLOOD UREA NITROGEN 13 mg/dL 7-21 (BEAKER) (test code = 354) CREATININE (BEAKER) 0.61 mg/dL 0.57-1.25 Specimen moderately (test code = 358) hemolyzed GLUCOSE RANDOM 93 mg/dL 70-105 (BEAKER) (test code = 652) CALCIUM (BEAKER) 9.0 mg/dL 8.4-10.2 (test code = 697) EGFR (BEAKER) (test 108 mL/min/1.73 ESTIM ATED GFR IS code = 1092) sq m NOT ACCURATE CREATININE CLEARANCE IN PREDICTING GLOMERULAR FILTRATION RATE . ESTIMATED GFR I S NOT APPLICABLE FOR DIALYSIS PATIEN TS. CBC W/PLT COUNT & AUTO [id number] 04:02:00 Test Item Value Reference Range Interpretation Comments WHITE BLOOD CELL COUNT (BEAKER) 8.4 K/ L 3.5-10.5 (test code = 775) RED BLOOD CELL COUNT (BEAKER) 4.15 M/ L 3.93-5.22 (test code = 761) HEMOGLOBIN (BEAKER) (test code = 11.8 GM/DL 11.2-15.7 410) HEMATOCRIT (BEAKER) (test code = 37.9 % 34.1-44.9 411) MEAN CORPUSCULAR VOLUME (BEAKER) 91.3 fL 79.4-94.8 (test code = 753) MEAN CORPUSCULAR HEMOGLOBIN 28.4 pg 25.6-32.2 (BEAKER) (test code = 751) MEAN CORPUSCULAR HEMOGLOBIN CONC 31.1 GM/DL 32.2-35.5 L (BEAKER) (test code = 752) RED CELL DISTRIBUTION WIDTH 14.1 % 11.7-14.4 (BEAKER) (test code = 412) PLATELET COUNT (BEAKER) (test 200 K/CU MM 150-450 code = 756) MEAN PLATELET VOLUME (BEAKER) 11.9 fL 9.4-12.3 (test code = 754) NUCLEATED RED BLOOD CELLS 0 /100 WBC 0-0 (BEAKER) (test code = 413) NEUTROPHILS RELATIVE PERCENT 73 % (BEAKER) (test code = 429) LYMPHOCYTES RELATIVE PERCENT 19 % (BEAKER) (test code = 430) MONOCYTES RELATIVE PERCENT 5 % (BEAKER) (test code = 431) EOSINOPHILS RELATIVE PERCENT 3 % (BEAKER) (test code = 432) BASOPHILS RELATIVE PERCENT 0 % (BEAKER) (test code = 437) NEUTROPHILS ABSOLUTE COUNT 6.08 K/ L 1.56-6.13 (BEAKER) (test code = 670) LYMPHOCYTES ABSOLUTE COUNT 1.62 K/ L 1.18-3.74 (BEAKER) (test code = 414) MONOCYTES ABSOLUTE COUNT (BEAKER) 0.39 K/ L 0.24-0.36 H (test code = 415) EOSINOPHILS ABSOLUTE COUNT 0.24 K/ L 0.04-0.36 (BEAKER) (test code = 416) BASOPHILS ABSOLUTE COUNT (BEAKER) 0.01 K/ L 0.01-0.08 (test code = 417) IMMATURE GRANULOCYTES-RELATIVE 1 % 0-1 PERCENT (BEAKER) (test code = 2801) CLOSTRIDIUM DIFFICILE TOXIN [id number] 13:44:00 Test Item Value Reference Range Interpretation Comments CLOSTRIDIUM DIFFICILE TOXIN, PCR Not Detected Not Detected (BEAKER) (test code = 1525) This qualitative real-time polymerase chain reaction assay detects the tcdB gene, encoded on the C.difficile pathogenicity locus (PaLoc). [...] a positive result is not recommended.CT, CTANGIO [id number] 06:59:00Addendum BeginsREPORT STATUS:A Three-dimensional post intravenous contrast images of the cerebral vasculature were created on a free standing workstation for better visualization of cerebral vascular anatomy and pathology. Signed: Skip Gardner MDReport Verified Date/Time: 04/12/2017 06:59:20 Reading Location: [place] [id number] Ortho Consult Reading RoomAddendum EndsFINAL REPORT Noncontrast [...] collection.No acute infarction is identified. The visualized para nasal sinuses and tympanomastoid cavities are well pneumatized. [...] MDReport Verified Date/Time: 04/07/2017 01:12:44 Reading Location: [facility] [id number] Ortho Consult Reading Room BASIC METABOLIC PANEL 2017-04-12 05:37:00 Test Item Value Reference Range Interpretation Comments SODIUM (BEAKER) 142 meq/L 136-145 (test code = 381) POTASSIUM (BEAKER) 3.7 meq/L 3.5-5.1 Specimen slightly (test code = 379) hemolyzed CHLORIDE (BEAKER) 105 meq/L 98-107 (test code = 382) CO2 (BEAKER) (test 27 meq/L 22-29 code = 355) BLOOD UREA NITROGEN 11 mg/dL 7-21 (BEAKER) (test code = 354) CREATININE (BEAKER) 0.66 mg/dL 0.57-1.25 Specimen slightly (test code = 358) hemolyzed GLUCOSE RANDOM 97 mg/dL 70-105 (BEAKER) (test code = 652) CALCIUM (BEAKER) 9.2 mg/dL 8.4-10.2 (test code = 697) EGFR (BEAKER) (test 99 mL/min/1.73 ESTIMA ADIA GFR IS code = 1092) sq m NOT ACCURATE CREATININE CLEARANCE IN PREDICTING GLOMERULAR FILTRATION RATE . ESTIMATED GFR I S NOT APPLICABLE FOR DIALYSIS PATIEN TS. CBC (HEMOGRAM ONLY)2017-04-12 05:17:00 Test Item Value Reference Range Interpretation Comments WHITE BLOOD CELL COUNT (BEAKER) 7.7 K/ L 3.5-10.5 (test code = 775) RED BLOOD CELL COUNT (BEAKER) 4.17 M/ L 3.93-5.22 (test code = 761) HEMOGLOBIN (BEAKER) (test code = 12.0 GM/DL 11.2-15.7 410) HEMATOCRIT (BEAKER) (test code = 38.0 % 34.1-44.9 411) MEAN CORPUSCULAR VOLUME (BEAKER) 91.1 fL 79.4-94.8 (test code = 753) MEAN CORPUSCULAR HEMOGLOBIN 28.8 pg 25.6-32.2 (BEAKER) (test code = 751) MEAN CORPUSCULAR HEMOGLOBIN CONC 31.6 GM/DL 32.2-35.5 L (BEAKER) (test code = 752) RED CELL DISTRIBUTION WIDTH 14.0 % 11.7-14.4 (BEAKER) (test code = 412) PLATELET COUNT (BEAKER) (test 219 K/CU MM 150-450 code = 756) MEAN PLATELET VOLUME (BEAKER) 11.6 fL 9.4-12.3 (test code = 754) NUCLEATED RED BLOOD CELLS 0 /100 WBC 0-0 (BEAKER) (test code = 413) POCT-GLUCOSE [id number] 17:55:00 Test Item Value Reference Range Interpretation Comments POC-GLUCOSE METER 111 mg/dL 70-110 H TESTED AT [place] [address] ([facility]) (test code = [facility] [place] [facility] 1538) [address] POCT-GLUCOSE [id number] 12:02:00 Test Item Value Reference Range Interpretation Comments POC-GLUCOSE METER 100 mg/dL 70-110 TESTED AT [place] [address] ([facility]) (test code = [facility] 1538) [address] POCT-GLUCOSE [id number] 07:50:00 Test Item Value Reference Range Interpretation Comments POC-GLUCOSE METER 110 mg/dL 70-110 TESTED AT [place] [address] ([facility]) (test code = [facility] 1538) [address] POCT-GLUCOSE [id number] 16:56:00 Test Item Value Reference Range Interpretation Comments POC-GLUCOSE METER 104 mg/dL 70-110 TESTED AT [facility] 6720 (BEAKER) (test code = [facility] Kin[place] [facility] 1538) [address] POCT-GLUCOSE [id number] 12:22:00 Test Item Value Reference Range Interpretation Comments POC-GLUCOSE METER 84 mg/dL 70-110 TESTED AT [facility] 6720 (BEAKER) (test code = KENNETH Kinney [facility] [address] 1538) HEMOGLOBIN [id number] 08:46:00 Test Item Value Reference Range Interpretation Comments HEMOGLOBIN A1C (BEAKER) (test code = 6.2 % 4.3-6.1 H 368) BASIC METABOLIC [id number] 06:42:00 Test Item Value Reference Range Interpretation Comments SODIUM (BEAKER) 142 meq/L 136-145 (test code = 381) POTASSIUM (BEAKER) 4.1 meq/L 3.5-5.1 Specimen slightly (test code = 379) hemolyzed CHLORIDE (BEAKER) 104 meq/L 98-107 (test code = 382) CO2 (BEAKER) (test 28 meq/L 22-29 code = 355) BLOOD UREA NITROGEN 9 mg/dL 7-21 (BEAKER) (test code = 354) CREATININE (BEAKER) 0.60 mg/dL 0.57-1.25 Specimen slightly (test code = 358) hemolyzed GLUCOSE RANDOM 96 mg/dL 70-105 (BEAKER) (test code = 652) CALCIUM (BEAKER) 9.1 mg/dL 8.4-10.2 (test code = 697) EGFR (BEAKER) (test 110 mL/min/1.73 ESTIM ATED GFR IS code = 1092) sq m NOT ACCURATE CREATININE CLEARANCE IN PREDICTING GLOMERULAR FILTRATION RATE . ESTIMATED GFR I S NOT APPLICABLE FOR DIALYSIS PATIEN TS. CBC W/PLT COUNT & AUTO [id number] 06:19:00 Test Item Value Reference Range Interpretation Comments WHITE BLOOD CELL COUNT (BEAKER) 7.5 K/ L 3.5-10.5 (test code = 775) RED BLOOD CELL COUNT (BEAKER) 4.12 M/ L 3.93-5.22 (test code = 761) HEMOGLOBIN (BEAKER) (test code = 11.8 GM/DL 11.2-15.7 410) HEMATOCRIT (BEAKER) (test code = 37.6 % 34.1-44.9 411) MEAN CORPUSCULAR VOLUME (BEAKER) 91.3 fL 79.4-94.8 (test code = 753) MEAN CORPUSCULAR HEMOGLOBIN 28.6 pg 25.6-32.2 (BEAKER) (test code = 751) MEAN CORPUSCULAR HEMOGLOBIN CONC 31.4 GM/DL 32.2-35.5 L (BEAKER) (test code = 752) RED CELL DISTRIBUTION WIDTH 13.8 % 11.7-14.4 (BEAKER) (test code = 412) PLATELET COUNT (BEAKER) (test 192 K/CU MM 150-450 code = 756) MEAN PLATELET VOLUME (BEAKER) 11.6 fL 9.4-12.3 (test code = 754) NUCLEATED RED BLOOD CELLS 0 /100 WBC 0-0 (BEAKER) (test code = 413) NEUTROPHILS RELATIVE PERCENT 77 % (BEAKER) (test code = 429) LYMPHOCYTES RELATIVE PERCENT 16 % (BEAKER) (test code = 430) MONOCYTES RELATIVE PERCENT 4 % (BEAKER) (test code = 431) EOSINOPHILS RELATIVE PERCENT 2 % (BEAKER) (test code = 432) BASOPHILS RELATIVE PERCENT 0 % (BEAKER) (test code = 437) NEUTROPHILS ABSOLUTE COUNT 5.82 K/ L 1.56-6.13 (BEAKER) (test code = 670) LYMPHOCYTES ABSOLUTE COUNT 1.21 K/ L 1.18-3.74 (BEAKER) (test code = 414) MONOCYTES ABSOLUTE COUNT (BEAKER) 0.31 K/ L 0.24-0.36 (test code = 415) EOSINOPHILS ABSOLUTE COUNT 0.15 K/ L 0.04-0.36 (BEAKER) (test code = 416) BASOPHILS ABSOLUTE COUNT (BEAKER) 0.01 K/ L 0.01-0.08 (test code = 417) IMMATURE GRANULOCYTES-RELATIVE 1 % 0-1 PERCENT (BEAKER) (test code = 2801) POCT-GLUCOSE [id number] 12:07:00 Test Item Value Reference Range Interpretation Comments POC-GLUCOSE METER 110 mg/dL 70-110 TESTED AT [facility] 6720 ([facility]) (test code = [place] MEJIA 1538) [address] CT, BRAIN, WITHOUT [id number] 06:55:00FINAL REPORT Clinical history : Decreased alertnessComparison [...] Signed: Skip Gardner MDReport Verified Date/Time: 04/09/2017 06:55:25 Reading Location: [facility] [id number] Consult Reading Room BASIC METABOLIC [id number] 05:57:00 Test Item Value Reference Range Interpretation Comments SODIUM (BEAKER) 140 meq/L 136-145 (test code = 381) POTASSIUM (BEAKER) 3.7 meq/L 3.5-5.1 (test code = 379) CHLORIDE (BEAKER) 103 meq/L 98-107 (test code = 382) CO2 (BEAKER) (test 29 meq/L 22-29 code = 355) BLOOD UREA NITROGEN 7 mg/dL 7-21 (BEAKER) (test code = 354) CREATININE (BEAKER) 0.56 mg/dL 0.57-1.25 L (test code = 358) GLUCOSE RANDOM 110 mg/dL 70-105 H (BEAKER) (test code = 652) CALCIUM (BEAKER) 8.7 mg/dL 8.4-10.2 (test code = 697) EGFR (BEAKER) (test 119 mL/min/1.73 ESTIM ATED GFR IS code = 1092) sq m NOT ACCURATE CREATININE CLEARANCE IN PREDICTING GLOMERULAR FILTRATION RATE . ESTIMATED GFR I S NOT APPLICABLE FOR DIALYSIS PATIEN TS. CBC W/PLT COUNT & AUTO [id number] 04:54:00 Test Item Value Reference Range Interpretation Comments WHITE BLOOD CELL COUNT (BEAKER) 8.1 K/ L 3.5-10.5 (test code = 775) RED BLOOD CELL COUNT (BEAKER) 4.07 M/ L 3.93-5.22 (test code = 761) HEMOGLOBIN (BEAKER) (test code = 11.6 GM/DL 11.2-15.7 410) HEMATOCRIT (BEAKER) (test code = 37.3 % 34.1-44.9 411) MEAN CORPUSCULAR VOLUME (BEAKER) 91.6 fL 79.4-94.8 (test code = 753) MEAN CORPUSCULAR HEMOGLOBIN 28.5 pg 25.6-32.2 (BEAKER) (test code = 751) MEAN CORPUSCULAR HEMOGLOBIN CONC 31.1 GM/DL 32.2-35.5 L (BEAKER) (test code = 752) RED CELL DISTRIBUTION WIDTH 13.6 % 11.7-14.4 (BEAKER) (test code = 412) PLATELET COUNT (BEAKER) (test 171 K/CU MM 150-450 code = 756) MEAN PLATELET VOLUME (BEAKER) 11.3 fL 9.4-12.3 (test code = 754) NUCLEATED RED BLOOD CELLS 0 /100 WBC 0-0 (BEAKER) (test code = 413) NEUTROPHILS RELATIVE PERCENT 77 % (BEAKER) (test code = 429) LYMPHOCYTES RELATIVE PERCENT 16 % (BEAKER) (test code = 430) MONOCYTES RELATIVE PERCENT 5 % (BEAKER) (test code = 431) EOSINOPHILS RELATIVE PERCENT 2 % (BEAKER) (test code = 432) BASOPHILS RELATIVE PERCENT 0 % (BEAKER) (test code = 437) NEUTROPHILS ABSOLUTE COUNT 6.20 K/ L 1.56-6.13 H (BEAKER) (test code = 670) LYMPHOCYTES ABSOLUTE COUNT 1.30 K/ L 1.18-3.74 (BEAKER) (test code = 414) MONOCYTES ABSOLUTE COUNT (BEAKER) 0.38 K/ L 0.24-0.36 H (test code = 415) EOSINOPHILS ABSOLUTE COUNT 0.14 K/ L 0.04-0.36 (BEAKER) (test code = 416) BASOPHILS ABSOLUTE COUNT (BEAKER) 0.01 K/ L 0.01-0.08 (test code = 417) IMMATURE GRANULOCYTES-RELATIVE 1 % 0-1 PERCENT (BEAKER) (test code = 2801) POCT-GLUCOSE [id number] 01:34:00 Test Item Value Reference Range Interpretation Comments POC-GLUCOSE METER 92 mg/dL 70-110 TESTED AT [facility] 6720 [facility] (test code = KENNETH Kinney [facility] [address] 1538) POCT-GLUCOSE [id number] 19:20:00 Test Item Value Reference Range Interpretation Comments POC-GLUCOSE METER 85 mg/dL 70-110 TESTED AT [place] [id number] ([facility]) (test code = KENNETH Kinney [facility] [address] 1538) CT, BRAIN, WITHOUT [id number] 15:47:00FINAL REPORT CT head without contrast. Comparisons: [...] CT evidence of intracranial hemorrhage, mass-effect, hydrocephalus, shift, or extra-axial collections. While I see no definitive acute large vessel infarction, please note that CT is not sensitive in detecting or distinguishing acute ischemic disease. The visualized dural sinus regions, orbital contents, paranasal sinuses, bones and surrounding soft tissues are unremarkable. Impressions: 1. No specific evidence of acute intracranial abnormality. Signed: Darren Tijerina Verified Date/Time: 04/08/2017 15:47:42 POCT-GLUCOSE [id number] 12:44:00 Test Item Value Reference Range Interpretation Comments POC-GLUCOSE METER 94 mg/dL 70-110 TESTED AT [place] [address] ([facility] (test code = KENNETH Kinney [facility] [address] 1538) BASIC METABOLIC [id number] 05:05:00 Test Item Value Reference Range Interpretation Comments SODIUM (BEAKER) 142 meq/L 136-145 (test code = 381) POTASSIUM (BEAKER) 4.0 meq/L 3.5-5.1 (test code = 379) CHLORIDE (BEAKER) 107 meq/L 98-107 (test code = 382) CO2 (BEAKER) (test 27 meq/L 22-29 code = 355) BLOOD UREA NITROGEN 9 mg/dL 7-21 (BEAKER) (test code = 354) CREATININE (BEAKER) 0.59 mg/dL 0.57-1.25 (test code = 358) GLUCOSE RANDOM 105 mg/dL 70-105 (BEAKER) (test code = 652) CALCIUM (BEAKER) 8.7 mg/dL 8.4-10.2 (test code = 697) EGFR (BEAKER) (test 112 mL/min/1.73 ESTIM ATED GFR IS code = 1092) sq m NOT ACCURATE CREATININE CLEARANCE IN PREDICTING GLOMERULAR FILTRATION RATE . ESTIMATED GFR I S NOT APPLICABLE FOR DIALYSIS PATIEN TS. CBC W/PLT COUNT & AUTO [id number] 04:28:00 Test Item Value Reference Range Interpretation Comments WHITE BLOOD CELL COUNT (BEAKER) 7.1 K/ L 3.5-10.5 (test code = 775) RED BLOOD CELL COUNT (BEAKER) 3.90 M/ L 3.93-5.22 L (test code = 761) HEMOGLOBIN (BEAKER) (test code = 11.0 GM/DL 11.2-15.7 L 410) HEMATOCRIT (BEAKER) (test code = 36.6 % 34.1-44.9 411) MEAN CORPUSCULAR VOLUME (BEAKER) 93.8 fL 79.4-94.8 (test code = 753) MEAN CORPUSCULAR HEMOGLOBIN 28.2 pg 25.6-32.2 (BEAKER) (test code = 751) MEAN CORPUSCULAR HEMOGLOBIN CONC 30.1 GM/DL 32.2-35.5 L (BEAKER) (test code = 752) RED CELL DISTRIBUTION WIDTH 14.2 % 11.7-14.4 (BEAKER) (test code = 412) PLATELET COUNT (BEAKER) (test 187 K/CU MM 150-450 code = 756) MEAN PLATELET VOLUME (BEAKER) 10.9 fL 9.4-12.3 (test code = 754) NUCLEATED RED BLOOD CELLS 0 /100 WBC 0-0 (BEAKER) (test code = 413) NEUTROPHILS RELATIVE PERCENT 73 % (BEAKER) (test code = 429) LYMPHOCYTES RELATIVE PERCENT 19 % (BEAKER) (test code = 430) MONOCYTES RELATIVE PERCENT 5 % (BEAKER) (test code = 431) EOSINOPHILS RELATIVE PERCENT 2 % (BEAKER) (test code = 432) BASOPHILS RELATIVE PERCENT 0 % (BEAKER) (test code = 437) NEUTROPHILS ABSOLUTE COUNT 5.22 K/ L 1.56-6.13 (BEAKER) (test code = 670) LYMPHOCYTES ABSOLUTE COUNT 1.37 K/ L 1.18-3.74 (BEAKER) (test code = 414) MONOCYTES ABSOLUTE COUNT (BEAKER) 0.34 K/ L 0.24-0.36 (test code = 415) EOSINOPHILS ABSOLUTE COUNT 0.13 K/ L 0.04-0.36 (BEAKER) (test code = 416) BASOPHILS ABSOLUTE COUNT (BEAKER) 0.01 K/ L 0.01-0.08 (test code = 417) IMMATURE GRANULOCYTES-RELATIVE 1 % 0-1 PERCENT (AKER) (test code = 2801) POCT-GLUCOSE [id number] 17:32:00 Test Item Value Reference Range Interpretation Comments POC-GLUCOSE METER 90 mg/dL 70-110 TESTED AT [facility] 67 ([facility]) (test code = KENNETH Kinney [facility] [address] 1538) POCT-GLUCOSE [id number] 12:02:00 Test Item Value Reference Range Interpretation Comments POC-GLUCOSE METER 91 mg/dL 70-110 TESTED AT [place] [address] ([facility]) (test code = [facility] [place] [facility] [address] 1538) EEG AWAKE AND [id number] 11:38:00Reason for exam:->R/O subclinical seizuresDATE OF [id number] OF REPORT: [id number]: [id number]: 17- 1801Start time: 09:54Stop time: 10:18ICD-10: G 93.40CPT Code: 08997 HISTORY: 41 y.o. female with history of morbid obesity, DM2 who presented today to OSH with R sided facial droop and LUE weakness . Patient was evaluated at OSH where patient was started with tPA after normal CT. Now with acute encephalopathy MEDICATIONS THAT COULD AFFECT EEG: TECHNICAL SUMMARY: This is a digital EEG recorded with 32 input channels on a [employer] system and then reviewed with bipolar and [...] additional EEG recordings. Javi Mae MDNeurophysiology Fellow [id number] Note: I personally reviewed this EEG record in its entirety and I agreewith the details of this report. Kitty Montjeo MD, PhDEpilepsy Attending CREATINE KINASE (CK), TOTAL AND [id number] 09:35:00 Test Item Value Reference Range Interpretation Comments CREATINE KINASE TOTAL (BEAKER) 52 U/L 29-200 (test code = 380) CREATINE KINASE-MB (BEAKER) (test 1.2 ng/mL 0.0-6.6 code = 750) CREATINE KINASE-MB INDEX (BEAKER) 2.3 % (test code = 395) CK-MB Reference Range:<6.7 Normal6.7-10.0 Borderline>10.0 AbnormalTROPONIN [id number] 09:31:00 Test Item Value Reference Range Interpretation Comments TROPONIN I (BEAKER) (test code = 397) < ng/mL 0.00-0.03 Troponin I (TnI) levels [...] failure, acidosis, acute neurological disease, and persistent tachyarrhythmia.[id number] 09:28:00 Test Item Value Reference Range Interpretation Comments AMMONIA (BEAKER) (test code = 348) 34 mol/L 18-72 TSH/FREE T4 IF [id number] 04:28:00 Test Item Value Reference Range Interpretation Comments THYROID STIMULATING HORMONE 1.12 uIU/mL 0.35-4.94 (BEAKER) (test code = 772) VITAMIN B12 AND [id number] 04:28:00 Test Item Value Reference Range Interpretation Comments VITAMIN B12 (BEAKER) (test code = 417 pg/mL 213-816 774) FOLATE (BEAKER) (test code = 362) 13.6 ng/mL >=7.0 CBC W/PLT COUNT & AUTO [id number] 03:27:00 Test Item Value Reference Range Interpretation Comments WHITE BLOOD CELL COUNT (BEAKER) 8.1 K/ L 3.5-10.5 (test code = 775) RED BLOOD CELL COUNT (BEAKER) 3.91 M/ L 3.93-5.22 L (test code = 761) HEMOGLOBIN (BEAKER) (test code = 11.4 GM/DL 11.2-15.7 410) HEMATOCRIT (BEAKER) (test code = 35.8 % 34.1-44.9 411) MEAN CORPUSCULAR VOLUME (BEAKER) 91.6 fL 79.4-94.8 (test code = 753) MEAN CORPUSCULAR HEMOGLOBIN 29.2 pg 25.6-32.2 (BEAKER) (test code = 751) MEAN CORPUSCULAR HEMOGLOBIN CONC 31.8 GM/DL 32.2-35.5 L (BEAKER) (test code = 752) RED CELL DISTRIBUTION WIDTH 14.3 % 11.7-14.4 (BEAKER) (test code = 412) PLATELET COUNT (BEAKER) (test 166 K/CU MM 150-450 code = 756) MEAN PLATELET VOLUME (BEAKER) 12.4 fL 9.4-12.3 H (test code = 754) NUCLEATED RED BLOOD CELLS 0 /100 WBC 0-0 (BEAKER) (test code = 413) NEUTROPHILS RELATIVE PERCENT 78 % (BEAKER) (test code = 429) LYMPHOCYTES RELATIVE PERCENT 16 % (BEAKER) (test code = 430) MONOCYTES RELATIVE PERCENT 4 % (BEAKER) (test code = 431) EOSINOPHILS RELATIVE PERCENT 1 % (BEAKER) (test code = 432) BASOPHILS RELATIVE PERCENT 0 % (BEAKER) (test code = 437) NEUTROPHILS ABSOLUTE COUNT 6.27 K/ L 1.56-6.13 H (BEAKER) (test code = 670) LYMPHOCYTES ABSOLUTE COUNT 1.30 K/ L 1.18-3.74 (BEAKER) (test code = 414) MONOCYTES ABSOLUTE COUNT (BEAKER) 0.32 K/ L 0.24-0.36 (test code = 415) EOSINOPHILS ABSOLUTE COUNT 0.09 K/ L 0.04-0.36 (BEAKER) (test code = 416) BASOPHILS ABSOLUTE COUNT (BEAKER) 0.02 K/ L 0.01-0.08 (test code = 417) IMMATURE GRANULOCYTES-RELATIVE 1 % 0-1 PERCENT (BEAKER) (test code = 2801) CREATINE KINASE (CK), TOTAL AND [id number] 03:11:00 Test Item Value Reference Range Interpretation Comments CREATINE KINASE TOTAL (BEAKER) 71 U/L 29-200 (test code = 380) CREATINE KINASE-MB (BEAKER) (test 1.5 ng/mL 0.0-6.6 code = 750) CREATINE KINASE-MB INDEX (BEAKER) 2.1 % (test code = 395) CK-MB Reference Range:<6.7 Normal6.7-10.0 Borderline>10.0 AbnormalFastingFastingTROPONIN [id number] 03:11:00 Test Item Value Reference Range Interpretation Comments TROPONIN I (BEAKER) (test code = 397) < ng/mL 0.00-0.03 Troponin I (TnI) levels [...] acute neurological disease, and persistent tachyarrhythmia.FastingBASIC METABOLIC [id number] 03:04:00 Test Item Value Reference Range Interpretation Comments SODIUM (BEAKER) 139 meq/L 136-145 (test code = 381) POTASSIUM (BEAKER) 4.3 meq/L 3.5-5.1 Specimen moderately (test code = 379) hemolyzed CHLORIDE (BEAKER) 107 meq/L 98-107 (test code = 382) CO2 (BEAKER) (test 24 meq/L 22-29 code = 355) BLOOD UREA NITROGEN 12 mg/dL 7-21 (BEAKER) (test code = 354) CREATININE (BEAKER) 0.68 mg/dL 0.57-1.25 Specimen moderately (test code = 358) hemolyzed GLUCOSE RANDOM 175 mg/dL 70-105 H (BEAKER) (test code = 652) CALCIUM (BEAKER) 8.5 mg/dL 8.4-10.2 (test code = 697) EGFR (BEAKER) (test 95 mL/min/1.73 ESTIMA ADIA GFR IS code = 1092) sq m NOT ACCURATE CREATININE CLEARANCE IN PREDICTING GLOMERULAR FILTRATION RATE . ESTIMATED GFR I S NOT APPLICABLE FOR DIALYSIS PATIEN TS. FastingLIPID [id number] 03:04:00 Test Item Value Reference Range Interpretation Comments TRIGLYCERIDES (BEAKER) 99 mg/dL Speci men moderately (test code = 540) hemolyzed CHOLESTEROL (BEAKER) 139 mg/dL Specime n moderately (test code = 631) hemolyzed HDL CHOLESTEROL (BEAKER) 43 mg/dL (test code = 976) LDL CHOLESTEROL 76 mg/dL CALCULATED (BEAKER) (test code = 633) Triglyceride Reference Range: Low Risk <150 Borderline 150-199 High Risk 200-499 Very High Risk >=500Cholesterol Reference Range: Low Risk <200 Borderline 200-239 High Risk >240HDL Cholesterol Reference Range: Low Risk >=60 High Risk <40LDL Cholesterol Reference Range: Optimal <100 Near Optimal 100-129 Borderline 130-159 High 160-189 Very High >=190 FastingHEPATIC FUNCTION [id number] 03:04:00 Test Item Value Reference Range Interpretation Comments TOTAL PROTEIN (BEAKER) 7.2 gm/dL 6.0-8.3 Speci men moderately (test code = 770) hemolyzed ALBUMIN (BEAKER) (test 3.4 g/dL 3.5-5.0 L Speci men moderately code = 1145) hemolyzed BILIRUBIN TOTAL 0.3 mg/dL 0.2-1.2 Specimen mod erately (BEAKER) (test code = hemoly zed 377) BILIRUBIN DIRECT 0.1 mg/dL 0.1-0.5 Specimen mo derately (BEAKER) (test code = hemoly zed 706) ALKALINE PHOSPHATASE 74 U/L 40-150 (AKER) (test code = 346) AST (SGOT) (AKER) 37 U/L 5-34 H Specimen moderately (test code = 353) hemolyzed ALT (SGPT) (AKER) 18 U/L 6-55 Specimen moderately (test code = 347) hemolyzed Fasting
[2020-08-10] MEDS ORDERED: MORPHINE 4 MG/ML SYR ONE (14:43)
[2020-08-10 14:46] LABS: Protime INR 1.06
[2020-08-10 14:53] LABS: Basophils % 0.2 % (0-1.3); Hematocrit 39.6 % (36.0-45.0); MPV 10.7 fL (7.6-11.3)
[2020-08-10 14:55] LABS: BUN Blood Urea Nitrogen 10 mg/dL (7-18); Bicarbonate 29 mmol/L (21-32); Glucose Level 177 mg/dL (74-106); Potassium 3.8 mmol/L (3.5-5.1); Sodium Level 141 mmol/L (136-145)
--- NOTE | 2020-08-10 16:10 | RAD REPORT ---
EXAM DESCRIPTION: CT - Head C Spine Cap Yazmin Barrios - 08/10/2020 4:00 pm CLINICAL HISTORY: Head and neck injury with chest and abdominal pain status post fall. Head and neck pain . TECHNIQUE: Computed axial tomography of the head and cervical spine was obtained Computed axial tomography of the chest, abdomen and pelvis was obtained. 100 cc Isovue-300 was given intravenously coronal and sagittal reconstruction was performed. All CT scans are performed using dose optimization technique as appropriate and may include automated exposure control or mA/KV adjustment according to patient size. COMPARISON: CT 2018 and 2019 FINDINGS: An intracranial bleed is not seen. The ventricles are normal in caliber. An extra-axial fl uid collection is not noted. A cervical fracture is not seen. No dislocation is seen. A mediastinal hematoma is not noted. A pleural effusion is not present. A lung contusion is not seen. The liver, spleen, pancreas, adrenals, kidneys and bladder do not demonstrate atraumatically injury Fatty liver. Marked chronic depression deformity T10 vertebral body unchanged IMPRESSION: 1. No acute intracranial abnormality is seen 2. A cervical fracture is not visualized. If the patient continues have symptoms to suggest intracran ial/spinal cord pathology then MRI would be recommended. 3. No acute traumatic injury involving the chest, abdomen or pelvis is seen.
[2020-08-10] MEDS ORDERED: KETOROLAC 30 MG/ML INJ ONE (16:51)
--- NOTE | 2020-08-10 17:05 | EDPHYS ---
Physician Documentation [facility] Name: Kelle Calderón Age: 45 yrs Sex: Female : 1975 Arrival Date: 08/10/2020 Time: 13:45 Bed 5 Private MD: ED Physician Grabiel Harper HPI: 08/10 14:05 This 45 yrs old Female presents to ER via EMS with complaints of Fall Injury. cp 14:05 Details of fall: The patient fell from an upright position. cp 14:05 Onset: The symptoms/episode began/occurred just prior to arrival. Associated injuries: cp The patient sustained neck injury, pain, upper back injury, pain, injury to the low back, pain. Patient brought to ED via EMS after reported fall from standing. Patient lying flat and reports pain "everywhere" after fall. Historical: - Allergies: 13:53 PENICILLINS; ll1 13:53 Plavix; ll1 13:53 Warfarin; ll1 - PMHx: 13:53 Asthma; bells palsy; Chronic pain; CVA; Depression; Diabetes - NIDDM; GERD; ll1 Hyperlipidemia; Hypertension; Irritable bowel syndrome; Kidney stones; lymphedema; Migraines; Sleep Apnea; - PSHx: 13:53 Tubal ligation; Knee surgery; Cholecystectomy; Hysterectomy; ; Hernia repair; ll1 - Immunization history:: Flu vaccine is up to date. - Social history:: Smoking status: Patient denies any tobacco usage or history of. - Immunization history: Last tetanus immunization: - up to date. ROS: 14:10 Constitutional: Negative for fever. cp 14:10 All other systems are negative. cp Exam: 14:20 Constitutional: The patient appears in no acute distress, alert, awake, cp non-diaphoretic, non-toxic, well developed, well nourished, obese. 14:20 Head/face: Exam is negative for obvious evidence of injury or deformity. cp 14:20 Eyes: Periorbital structures: appear normal, Pupils: equal, round, and reactive to light and accomodation, Extraocular movements: intact throughout, Sclera: no appreciated abnormality, Lids and lashes: appear normal, bilaterally. 14:20 ENT: External ear(s): are unremarkable, Ear canal(s): are normal, clear, Nose: is normal, Mouth: Lips: moist, Oral mucosa: moist, Posterior pharynx: Airway: no evidence of obstruction, patent. 14:20 Neck: C-spine: C-collar placed in ED. 14:20 Chest/axilla: Inspection: normal, Palpation: crepitus, is not appreciated, tenderness, that is mild, of the anterior aspect of right upper chest, anterior aspect of left upper chest and mid-sternal area. 14:20 Cardiovascular: Rate: normal, Rhythm: regular, Edema: ankle edema, that is mild, JVD: is not appreciated. 14:20 Respiratory: the patient does not display signs of respiratory distress, Respirations: normal, no use of accessory muscles, no retractions, labored breathing, is not present, Breath sounds: are clear throughout, no decreased breath sounds, no stridor, no wheezing. 14:20 Abdomen/GI: Inspection: abdomen appears normal, Bowel sounds: active, all quadrants, Palpation: soft, in all quadrants, mild abdominal tenderness, in all quadrants. 14:20 Back: pain, that is severe, of the thoracic area and lumbar area, ROM is painful, with all movement. 14:20 Musculoskeletal/extremity: Exam is negative for deformity, obvious injury. Pulses: noted to be 2+ in the right radial artery, right dorsalis pedis artery, left radial artery and left dorsalis pedis artery, Sensation intact. 14:20 Skin: no open wound noted; no obvious bruising, swelling noted. 14:20 Neuro: Orientation: to person, place \\T\\ time. Mentation: able to follow commands, slow to respond, Motor: patient refusing to move extremities due to reported pain, Sensation: no obvious gross deficits. Vital Signs: 13:50 BP 140 / 77; Pulse 74; Resp 20; Temp 98.0; Pulse Ox 96% ; Weight 158.76 kg; Height 5 ll1 ft. 3 in. (160.02 cm); Pain 10/10; 13:50 Body Mass Index 62.00 (158.76 kg, 160.02 cm) ll1 [place] Coma Score: 14:33 Eye Response: spontaneous(4). Verbal Response: oriented(5). Motor Response: obeys ll1 commands(6). Total: 15. Trauma Score (Adult): 14:33 Eye Response: spontaneous(1); Verbal Response: oriented(1); Motor Response: obeys ll1 commands(2); Systolic BP: > 89 mm Hg(4); Respiratory Rate: 10 to 29 per min(4); Shel[place] Score: 15; Trauma Score: 12 MDM: 14:15 Differential diagnosis: closed head injury, contusion, fracture, multiple trauma. cp 14:38 Patient medically screened. [facility] [place] 17:02 Data reviewed: vital signs, nurses notes, lab test result(s), radiologic studies, CT cp scan. 17:02 Counseling: I had a detailed discussion with the patient and/or guardian regarding: the cp historical points, exam findings, and any diagnostic results supporting the discharge/admit diagnosis, lab results, radiology results, to return to the emergency department if symptoms worsen or persist or if there are any questions or concerns that arise at home. Response to treatment: the patient's symptoms have markedly improved after treatment, Pain improved. Results of CT trauma gram negative for acute injury. Patient ambulated to wheelchair with assistance by nurse and will discharge to home for continued monitoring. 08/10 14:00 Order name: Basic Metabolic Panel; Complete Time: 15:34 cp 08/10 14:00 Order name: CBC with Diff; Complete Time: 15:34 cp 08/10 14:00 Order name: CT Traumagram (Head C Spine CAP W Con); Complete Time: 16:28 cp 08/10 14:00 Order name: Type And Screen; Complete Time: 16:28 cp 08/10 14:00 Order name: PT-INR; Complete Time: 15:34 cp 08/10 14:56 Order name: CREATININE WHOLE BLOOD; Complete Time: 15:34 EDMS 08/10 14:00 Order name: C-Collar; Complete Time: 15:57 cp 08/10 14:00 Order name: Labs collected and sent; Complete Time: 14:02 cp 08/10 14:00 Order name: Accucheck Blood Glucose; Complete Time: 14:16 cp Administered Medications: 14:29 Drug: morphine 4 mg {Note: rass 0. Pain 10/10.} Route: IVP; Site: right antecubital; ll1 16:37 Follow up: Response: No adverse reaction; Pain is decreased; RASS: Alert and Calm (0) ll1 16:37 Drug: TORadol - Ketorolac 15 mg {Note: rass 0.} Route: IVP; Site: right antecubital; ll1 17:13 Follow up: Response: No adverse reaction; RASS: Alert and Calm (0) ll1 Disposition: 17:25 Chart complete. cp Disposition: 08/10/20 17:04 Discharged to Home. Impression: Fall on same level from slipping, tripping and stumbling, Cervicalgia, Dorsalgia. - Condition is Stable. - Discharge Instructions: Back Pain, Adult, Musculoskeletal Pain, Neck Exercises. - Prescriptions for Cyclobenzaprine 10 mg Oral Tablet - take 1 tablet by ORAL route every 8 hours As needed; 20 tablet. Diclofenac Sodium 75 mg Oral Tablet, Delayed Release (E.C.) - take 1 tablet by ORAL route 2 times per day; 20 tablet. - Medication Reconciliation Form, Thank You Letter, Antibiotic Education, Prescription Opioid Use, Work release form form. - Follow up: Private Physician; When: 1 - 2 days; Reason: Worsening of condition. - Problem is new. - Symptoms have improved. Addendum: 08/12/2020 06:32 Co-signature as Attending Physician, Grabiel Harper MD I agree with the assessment and c sagastume plan of care. Signatures: Dispatcher [employer] EDTX Grabiel Harper MD MD cha Page, Corey PA PA cp Qing Herrera kj1 Olinda Cordova RN RN ll1 Corrections: (The following items were deleted from the chart) 08/10 17:19 17:04 08/10/2020 17:04 Discharged to Home. Impression: Fall on same level from kj1 slipping, tripping and stumbling; Cervicalgia; Dorsalgia. Condition is Stable. Forms are Medication Reconciliation Form, Thank You Letter, Antibiotic Education, Prescription Opioid Use. Follow up: Private Physician; When: 1 - 2 days; Reason: Worsening of condition. Problem is new. Symptoms have improved. cp
--- NOTE | 2020-08-10 17:05 | ER ---
Nurse's Notes [facility] Name: Kelle Calderón Age: 45 yrs Sex: Female : 1975 Arrival Date: 08/10/2020 Time: 13:45 Bed 5 Private MD: Diagnosis: Fall on same level from slipping, tripping and stumbling;Cervicalgia;Dorsalgia Presentation: 08/10 13:50 Chief complaint: Patient states: Trip and fall at [employer] 30 min [employer]. Reports pain all ll1 over. Back pain radiates into both shoulders. All 4 extremities hurt also. No LOC. Coronavirus screen: Client denies travel out of the [place] in the last 14 days. At this time, the client does not indicate any symptoms associated with coronavirus-19. Ebola Screen: Patient denies travel to an Ebola-affected area in the 21 days before illness onset. Initial Sepsis Screen: Does the patient meet any 2 criteria? No. Patient's initial sepsis screen is negative. Does the patient have a suspected source of infection? No. Patient's initial sepsis screen is negative. Risk Assessment: Do you want to hurt yourself or someone else? Patient reports no desire to harm self or others. Onset of symptoms was August 10, 2020. 13:50 Method Of Arrival: EMS: [facility] 1 13:50 Acuity: SIMRAN 3 ll1 Historical: - Allergies: 13:53 PENICILLINS; ll1 13:53 Plavix; ll1 13:53 Warfarin; ll1 - PMHx: 13:53 Asthma; bells palsy; Chronic pain; CVA; Depression; Diabetes - NIDDM; GERD; ll1 Hyperlipidemia; Hypertension; Irritable bowel syndrome; Kidney stones; lymphedema; Migraines; Sleep Apnea; - PSHx: 13:53 Tubal ligation; Knee surgery; Cholecystectomy; Hysterectomy; ; Hernia repair; ll1 - Immunization history:: Flu vaccine is up to date. - Social history:: Smoking status: Patient denies any tobacco usage or history of. - Immunization history: Last tetanus immunization: - up to date. Screenin:32 Abuse screen: Denies threats or abuse. Nutritional screening: No deficits noted. ll1 Tuberculosis screening: No symptoms or risk factors identified. Fall Risk Fall in past 12 months (25 points). IV access (20 points). Gait- Impaired (20 pts.). Total Mckinney Fall Scale indicates High Risk Score (45 or more points). Fall prevention measures have been instituted. Side Rails Up X 2 Frequent Obs/Assessments Occuring As available patient and family educated on Fall Prevention Program and Strategies. Primary Survey: 14:32 NO uncontrolled hemorrhage observed. A: The patient is alert. Airway: patent, No ll1 supplemental oxygen in use on arrival. Trachea midline. Breathing/Chest: Respiratory pattern: regular, Respiratory effort: spontaneous, unlabored, Breath sounds: clear, Chest inspection: symmetrical rise and fall of the chest. Circulation: Heart tones present. Pulses: palpable right radial artery, right dorsalis pedis artery, left radial artery and left dorsalis pedis artery. Disability Alert. Exposure/Environment: There is no evidence of uncontrolled external bleeding. A warming method has been applied: A warm blanket has been provided to the patient. Assessment: 14:30 General: Appears uncomfortable, Behavior is calm, cooperative, appropriate for age. ll1 Pain: Complains of pain in all over Pain currently is 10 out of 10 on a pain scale. Aggravated by increased activity. Musculoskeletal: Circulation, motion, and sensation intact. Capillary refill < 3 seconds, Range of motion: intact in all extremities, pain with ROM of all extremities Swelling present in bilateral lower legs Tenderness present in all over Reports pain in all over. Injury Description: Bruise. 15:30 Reassessment: No changes from previously documented assessment. Patient and/or family ll1 updated on plan of care and expected duration. Pain level reassessed. 16:30 Reassessment: No changes from previously documented assessment. Patient and/or family ll1 updated on plan of care and expected duration. Pain level reassessed. Patient is alert, oriented x 3, equal unlabored respirations, skin warm/dry/pink. Vital Signs: 13:50 BP 140 / 77; Pulse 74; Resp 20; Temp 98.0; Pulse Ox 96% ; Weight 158.76 kg; Height 5 ll1 ft. 3 in. (160.02 cm); Pain 10/10; 13:50 Body Mass Index 62.00 (158.76 kg, 160.02 cm) ll1 [place] Coma Score: 14:33 Eye Response: spontaneous(4). Verbal Response: oriented(5). Motor Response: obeys ll1 commands(6). Total: 15. Trauma Score (Adult): 14:33 Eye Response: spontaneous(1); Verbal Response: oriented(1); Motor Response: obeys ll1 commands(2); Systolic BP: > 89 mm Hg(4); Respiratory Rate: 10 to 29 per min(4); Garrison Score: 15; Trauma Score: 12 ED Course: 13:45 Patient arrived in ED. cp 13:50 Olinda Cordova RN is Primary Nurse. ll1 13:50 Grabiel Alfred PA is PHCP. cp 13:50 Grabiel Harper MD is Attending Physician. cp 13:52 Triage completed. ll1 13:53 Arm band placed on Patient placed in an exam room, on a stretcher. ll1 14:10 Inserted saline lock: 20 gauge in right antecubital area, using aseptic technique. ll1 Blood collected. 14:33 Patient has correct armband on for positive identification. Bed in low position. Call ll1 light in reach. Side rails up X 1. Pulse ox on. NIBP on. 14:33 Patient maintains SpO2 saturation greater than 95% on room air. Thermoregulation: warm ll1 blanket given to patient. 16:00 CT Traumagram (Head C Spine CAP W Con) In Process Unspecified. EDMS 17:12 No provider procedures requiring assistance completed. IV discontinued, intact, ll1 bleeding controlled, No redness/swelling at site. Pressure dressing applied. Administered Medications: 14:29 Drug: morphine 4 mg {Note: rass 0. Pain 10/10.} Route: IVP; Site: right antecubital; ll1 16:37 Follow up: Response: No adverse reaction; Pain is decreased; RASS: Alert and Calm (0) ll1 16:37 Drug: TORadol - Ketorolac 15 mg {Note: rass 0.} Route: IVP; Site: right antecubital; ll1 17:13 Follow up: Response: No adverse reaction; RASS: Alert and Calm (0) ll1 Outcome: 17:04 Discharge ordered by . cp 17:19 Patient left the ED. kj1 17:21 Discharged to home via wheelchair. ll1 17:21 Condition: stable 17:21 Discharge instructions given to patient, Instructed on discharge instructions, follow up and referral plans. no drinking with medication, no driving heavy equipment, medication usage, Demonstrated understanding of instructions, follow-up care, medications, Prescriptions given X 2. Signatures: Dispatcher [employer] EDMS Grabiel Alfred PA PA cp Jackson, Kandis kj1 Olinda Cordova RN RN ll1
[2020-08-10 17:46] VITALS: BP 140/77; TEMP 98; O2SAT 96
== END 2020-08-10 17:19 | disposition home or self-care (01) ==
LOC: ER 13:40
DX: M54.9 Dorsalgia, unspecified (principal); W01.0XXA Fall on same level from slipping, tripping and stumbling without subsequent striking against object, initial encounter; Y93.89 Activity, other specified; Y92.9 Unspecified place or not applicable; Z88.0 Allergy status to penicillin; Z88.8 Allergy status to other drugs, medicaments and biological substances; I10 Essential (primary) hypertension
CPT/HCPCS: 85025; 80048; 36415; 86900; 86850; 85610; 82565; 86901; 70450; 72125; 71260; 74177; 96375; 96374; 99284; Q9967

== ENCOUNTER 2020-11-03 09:34 | Inpatient (IN) | payer OTHER ==
[2020-10-29] MEDS: ACYCLOVIR 400 MG TABLET PO SCH (19:00)
--- NOTE | 2020-11-04 09:01 | R.PREADM ---
PRE-ADMISSION SCREENING FORM SCREENING DATE AND TIME 11/03/2020 09:58 (CDT) ANTICIPATED REHAB ADMISSION DATE 11/05/2020 REFERRING FACILITY [facility] REFERRAL DATE AND TIME 10/31/2020 09:59 (CDT) REFERRAL OFFICE PHONE [phone] REFERRAL ROOM# [id number] ACUTE ADMIT DATE 11/04/2020 Previous Rehabilitation(s): No. 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 Freddie Dee M.D. MR# [id number] NAME GIOVANNY CALDERÓN ADDRESS [address] [place] [address] PHONE [facility] [id number] DATE OF 1975 AGE 45 SSN# [id number] GENDER female MARITAL STATUS RACE unknown race ADMIT FROM 02 - [facility] PRE-HOSPITAL LIVING SETTING 01 - Home (private home/apt. board/care, assisted living, usp, transitional living) HOME TYPE AND DETAILS Type of home: single family house # of levels in the residence: 1 # of steps to enter the residence: 0 PRE-HOSPITAL LIVING WITH Family/Relatives FAMILY [employer] PRIMARY FAMILY CONTACT NAME Lev Calderón PRIMARY FAMILY CONTACT PHONE PRIMARY FAMILY CONTACT RELATIONSHIP Spouse PHONE PRIMARY FAMILY CONTACT ON ADM.? no IS PRIMARY FAMILY CONTACT AUTH. REP.? no 1ST EMERGENCY CONTACT Lev Calderón 1ST CONTACT PHONE 1ST CONTACT RELATIONSHIP Spouse PHONE 1ST CONTACT ON ADM. no IS 1ST CONTACT AUTH. REP.? no PHONE 2ND CONTACT ON ADM.? 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 No ANOTHER GREEN PARTY RESPONSIBLE? No PRIMARY REHAB/ACUTE DIAGNOSIS: CVA ONSET DATE 10/28/2020 REHAB IMPAIRMENT CATEGORY (TRACY): 01 Stroke (STR) MEETS 60% rule AFFECTED EXTREMITIES: RLE, and RUE PRIMARY DIAGNOSIS-RELATED SURGERIES: N/A SUMMARY OF ACUTE HOSPITALIZATION: Pt. is a 45 yo Right-handed female of unknown race. On 10/28/2020 Pt. presented to [facility] with sudden onset of right-side weakness . On 10/28/2020 she was admitted to [facility] with diagnosis CVA. Her impairment category is Stroke 01 - Right Body (Left Brain) (01.2). Pre-morbidly, Pt. was independent/mod-I in Sphincter Control, Self-Care, Transfers Control, and Trupti ce; and she had good Endurance and Locomotion. Currently, she has deficits of Safety Awareness, Balance, Sphincter Control, Transfers Control, Endur ance, and Locomotion. Pt. is now referred to [facility] for acute in-patient rehabilitation in order to maximize patient's functional independence in activities of daily living, strength, ROM, and mobi lity. Patient has realistic goal of being discharged at assistance level 7-Ind to reside at Home with Fami ly/Relatives. PAST MEDICAL HISTORY HTN LEFT BELLS PALSY DM2 MORBID OBESITY PAST SURGICAL HISTORY: HYSTERECTOMY X 3 CHOLECYSTECTOMY TUBAL LIGATION KNEE SURGERY X 3 MEDICATION ALLERGIES: No Known Drug Allergies (NKDA) ENVIRONMENTAL ALLERGIES: - Substance Allergies None Known - Other Allergies None Known CODE STATUS: Full code WEIGHT/HEIGHT/BMI: WEIGHT 370 lbs HEIGHT 5' 0" BMI 72.3 DIET: - Diet Type Regular - Diet - Solid Texture Regular - Diet - Liquid Texture Regular - Tube Feed N/A REVIEW OF SYSTEMS: - Gen Alert and awake Lying in bed No apparent distress Oriented to: person, time, and place - Vital Signs Temperature: 97.7 F SBP/DBP: 128/83 Pulse: 62 Resp: 16 Vital signs stable, afebrile - CVS RRR VITAL SIGNS Temperature: 97.7 F SBP/DBP: 128/83 Pulse: 62 Resp: 16 Vital signs stable, afebrile MEDICATIONS/TREATMENT: Other- See attached MAR (Medication Administration Record). CURRENT SPHINCTER CONTROL: Pre-hospital bladder status: unspecified # of bladder accidents in the last 7 days prior to screenin Pre-hospital bowel status: unspecified # of bowel accidents in the last 7 days prior to screenin Last Bowel Movement Date: 11/03/2020 CURRENT LOCOMOTION STATUS: distance walked 3-5 feet WITH ROLLING WALKER DETAILED CURRENT FUNCTIONAL STATUS: - Bladder accident frequency: 7-Ind - No accidents in the past 7 days - Bowel accident frequency: 7-Ind - No accidents in the past 7 days - Walking score based on distance walked: 0(N/A) score based on distance walked: 1(<=50ft) - Wheelchair score based on distance traveled: 0(N/A) QI SCORES: - Self-Care A. Eating 03-Partial/moderate assistance B. Oral hygiene 03-Partial/moderate assistance C. Toileting hygiene 03-Partial/moderate assistance E. Shower/bathe self 02-Substantial/maximal assistance F. Upper body dressing 03-Partial/moderate assistance G. Lower body dressing 03-Partial/moderate assistance H. Putting on/taking off footwear 03-Partial/moderate assistance - Mobility A. Roll left and right 03-Partial/moderate assistance B. Sit to lying 03-Partial/moderate assistance C. Lying to sitting on side of bed 03-Partial/moderate assistance D. Sit to stand 03-Partial/moderate assistance E. Chair/zjf-[id number]-pvtcn transfer 03-Partial/moderate assistance F. Toilet transfer 03-Partial/moderate assistance G. Car transfer 88-Not attempted due to medical condition or safety concerns I. Walk 10 feet 88-Not attempted due to medical condition or safety concerns J. Walk 50 feet with two turns 88-Not attempted due to medical condition or safety concerns K. Walk 150 feet 88-Not attempted due to medical condition or safety concerns L. Walking 10 feet on uneven surfaces 88-Not attempted due to medical condition or safety concerns M. 1 step (curb) 88-Not attempted due to medical condition or safety concerns N. 4 steps 88-Not attempted due to medical condition or safety concerns O. 12 steps 88-Not attempted due to medical condition or safety concerns P. Picking up object 88-Not attempted due to medical condition or safety concerns R. Wheel 50 feet with two turns 88-Not attempted due to medical condition or safety concerns S. Wheel 150 feet 88-Not attempted due to medical condition or safety concerns - Bladder and Bowel Bladder continence Bowel continence - Endurance Fair - Balance Fair - Safety Awareness Fair CURRENT FUNC. DEFICITS: Self-Care, Mobility, Endurance, Balance, and Safety Awareness CURRENT / PREVIOUS ASSISTIVE DEVICES: Rolling Walker HISTORY OF FALLS. HAS THE PATIENT HAD TWO OR MORE FALLS IN THE PAST YEAR OR ANY FALL WITH INJURY IN T HE PAST YEAR?: No THERAPY NOTES FROM ACUTE CARE: Attached. SPECIAL NEEDS: - Safety Concerns Skin breakdown precautions needed due to skin breakdown risk PRECAUTIONS: - Weight Bearing Precaution WBAT right LE PATIENT NEEDS ACTIVE AND ONGOING THERAPEUTIC INTERVENTION OF MULTIPLE THERAPY DISCIPLINES, INCLUDING: - Occupational Therapy Cognitive Retraining. Visual Perceptual Training. - Dietary and Nutrition Adequate Nutrition. Nutritional Education. Nutritional Supplements. - Speech Therapy Cognitive Training. Expressive Language Skills. Memory Strategies. Receptive Language Skills. Speech Intelligibility Training. PATIENT NEEDS CLOSE MEDICAL SUPERVISION BY A REHABILITATION PHYSICIAN FOR: Coordination of Treatment Team PATIENT REQUIRES 24X7 REHAB NURSING FOR MEDICAL AND FUNCTIONAL MGT. OF THE FOLLOWING DEFICITS: Disease Management Medication Management Patient/Family Education Providing Safe Environment PATIENT REQUIRES INTENSIVE, COORDINATED INTERDISCIPLINARY APPROACH TO REHAB: Arranging Home Equipment/Services Discharge Planning Family Intervention/Training Produce Runner/Case Management PATIENT REHAB POTENTIAL: Caren CALDERÓN is able and expected to receive 3 hours of individualized therapy daily on at least 5 of e very 7 days Caren CALDERÓN'alcira prognosis for significant practical improvement within a reasonable period of time appea rs Good Expected level of measurable improvement will be of a practical value to Caren CALDERÓN's functional capa city or adaptations to impairments Has a viable Discharge Plan Medically appropriate; condition is sufficiently stable to participate in intensive rehab program DISCHARGE PLAN: - Estimated Length of Stay (days) 17. - Consensus on plan Discharge plan has been discussed with primary caregiver. Patient/Family is in agreement with the reno n. Primary caregiver is in agreement with the plan. - Patient/Family Goals Return home independently. - Planned Living Setting Upon Discharge Home, to live with Family/Relatives. Transitional Living. RECOMMENDED CARE LEVEL: IRF RECOMMENDATION DETAILS: Recommended Admission to Comprehensive Rehabilitation Program to Increase Functional Keith SCREENER'S COMPLETENESS CONFIRMATION: - Screening Confirmation The patient data collection on this preadmission screening form is finished PHYSICIANS REVIEW AND ADMISSION DETERMINATION Admit - Based on my review of the Pre-Admission Screening results, in my medical judgment and experie nce, I concur with the findings and recommend admission to [facility], as this patient requires an IRF level of care. SIGNATURE PANEL: Refrigerator Car Icer - [electronically] signed by Matt Garcia on 11/04/2020 at 08:20 (CDT) Refrigerator Car Icer - [electronically] signed by Davi Reed PT on 11/04/2020 at 08:25 (CDT) Physician Reviewer - [electronically] signed by Dr. Freddie Dee M.D. on 11/04/2020 at 09:00 (CDT )
--- OUTSIDE RECORDS SUMMARY | 2020-11-04 16:53 | XMS REPORT | Continuity of Care Document ---
:[address] [facility] t Address [address] [place] [address] Care Team Providers Name Role Phone Pcp MD Primary Care Physician Unavailable Doctor Unassigned, Name Attending Clinician Unavailable Guanako GARCIA S Attending Clinician Nichol Morton Attending Clinician ALEISHA Attending Clinician Unavailable DIONICIO Attending Clinician Unavailable Abimael Baltazar Attending Clinician PASHA Attending Clinician Unavailable YIMI CHEUNG Attending Clinician Unavailable KAYE Attending Clinician Unavailable Giovanny Abimael Admitting Clinician YIMI CHEUNG Admitting Clinician Unavailable KAYE Admitting Clinician Unavailable Payers Payer Name Policy Type Policy Number Effective Date Expiration Date S ource Problems Condition Condition Condition Status Onset Resolution Last Treating Co mments Source Name Details Category Date Date Treatment Clinician Date GASTRO Diagnosis Active 2018-09-27 Mem oria 09-04 07:13:00 l GASTRO 00:00: [place] 00 Active 09/04/2018 [facility] Cough Cough Disease Active [facility] 00 [place] Generalize Generalize Disease Active [facility] d headache d headache 3- Liudmila kes - 00:00: Medical 00 [place] STROKE Diagnosis Active 2018-06-13 Mem oria 06-13 04:41:00 l STROKE 00:00: [place] 00 Active 06/13/2018 [facility] ACUTE Diagnosis Active 2018-06-22 [facility] oria CEREBROVAS 06-13 22:17:00 l CULAR ACUTE 00:00: Jimmy ACCIDENT CEREBROVAS 00 CULAR ACCIDENT Active 06/13/2018 [facility] Left-sided Left-sided Disease Active [facility] weakness weakness 12-08 [facility] 00:[facility]: Medical 00 [place] Status Status Disease Active [facility] post [...] Acute Disease Active [facility] ischemic ischemic [facility]- [facility] - stroke stroke 00:00: Medical 00 Center 3RD CONSTITUTION PARTY Diagnosis Active 2017-12-07 Memoria - 23:11:00 l 3RD 00:00: Jimmy CONSTITUTION PARTY 00 Active 12/07/2017 [facility] Headache, Headache, Disease Active 2016-[address] [facility] acute acute 1-20 [facility] 00:[facility]: Medical 00 Center 3RD CONSTITUTION PARTY Diagnosis Active 2016-062017-04-06 Memoria FLIGHT 23:56:00 l 3RD 00:00: [place] CONSTITUTION PARTY 00 FLIGHT Active 04/06/2017 [facility] CVA CVA Disease Active 2016- [facility] (cerebral (cerebral 2-26 [facility] - vascular vascular 00:00: Medica l accident) accident) 00 Cent er Acute Problem 2019-01-02 Memor ia respirator 13:50:12 l y failure Acute Edmund n with respirator hypoxia y failure with hypoxia 01/02/2019 [facility] Hemiplegia Problem 2019-01-02 M emoria and 13:50:12 l hemiparesi Edmund n s 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 nt side affecting left non-domina nt side 01/02/2019 [facility] Body mass Problem 2019-01-02 Me moria index 13:50:12 l (BMI) Body [place] 60.0-69.9, mass index adult (BMI) 60.0-69.9, adult 01/02/2019 [facility] Encephalop Problem 2019-01-02 M emoria athy, 13:50:12 l unspecifie Edmund n d Encephalop athy, unspecifie d 01/02/2019 [facility] Essential Problem 2019-01-02 Me moria (primary) 13:50:12 l hypertensi Edmund n on Essential (primary) hypertensi on 01/02/2019 [facility] Morbid Problem 2019-01-02 Memor ia (severe) 13:50:12 l obesity Morbid [place] due to (severe) excess obesity calories due to excess calories 01/02/2019 [facility] Type 2 Problem 2019-01-02 Memor ia diabetes 13:50:12 l mellitus Type 2 Edmund n with diabetes hyperglyce mellitus gloria with hyperglyce gloria 01/02/2019 [facility] Difficulty Problem 2019-01-02 M emoria in 13:50:12 l walking, Jimmy not Difficulty elsewhere in classified walking, not elsewhere classified 01/02/2019 [facility] Naranjo'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 ia palsy 13:50:12 l Naranjo's [place] palsy 01/02/2019 [facility] Encounter Problem 2019-01-02 Me moria for 13:50:12 l immunizati Edmund n on Encounter for immunizati on 01/02/2019 [facility] Migraine, Problem 2019-01-02 Me moria unspecifie 13:50:12 l d, not [place] intractabl Migraine, e, without unspecifie status d, not migrainosu intractabl s e, without status migrainosu s 01/02/2019 [facility] Statu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 ia post 13:50:12 l administra Status Herm mio tion of post tPA (rtPA) administra in a tion of different tPA (rtPA) facility in a within the different last 24 facility hours within the prior to last 24 admission hours to current prior to facility admission to current facility 01/02/2019 [facility] 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) 13:50:12 l use of Long [place] insulin term (current) use of insulin 01/02/2019 [facility] Family Problem 2019-01-02 Memor ia history of 13:50:12 l diabetes Family Edmund n mellitus history of diabetes mellitus 01/02/2019 [facility] Disease of Problem Active 2019-01-02 M emoria cardiovasc 13:50:12 l ular Disease Jimmy system of (disorder) cardiovasc ular system (disorder) Active Problem 01/02/2019 right leg [facility] Diabetes Problem Active 2019-01-02 Mem oria mellitus 13:50:12 l (disorder) Diabetes He rmann mellitus (disorder) Active Problem 01/02/2019 [facility] Heartburn Problem Active 2019-01-02 Me moria (finding) 13:50:12 l [place] Heartburn (finding) Active Problem 01/02/2019 [facility] ILLNESS, Diagnosis Active 2018-06-13 M emoria UNSPECIFIE 04:41:00 l D ILLNESS, Edmund n UNSPECIFIE D Active [facility] CEREBRAL Diagnosis Active 2018-06-22 M emoria INFARCTION 22:17:00 l , CEREBRAL Edmund n UNSPECIFIE INFARCTION D , UNSPECIFIE D Active [facility] Illness, Problem 2019-01-02 Mem oria unspecifie 13:50:12 l d Illness, Edmund n unspecifie d 01/02/2019 [facility] History of History of Problem Resolve Univers cerebrovas cerebrovas d it y of cular cular [place] accident accident Physic i ans Asthma Asthma Problem Active [facility] [place] [facility] Obstructiv Obstructiv Problem Active U nivers e sleep e sleep ity of apnea, apnea, [place] adult adult Physici ans Depression Depression Problem [...] deficiency it y of [place] Physici ans History of Past Illness Condition Condition Condition Status Onset Resolution Last Treating Co mments Source Name Details Category Date Date Treatment Clinician Date Cerebral Problem 2019-01-02 2019-01-02 Memoria infarction 1-11 13:50:12 13:50:12 l , Cerebral 05:33: Edmund jacobson unspecifie infarction 29 d , unspecifie d 06/23/2018 01/02/2019 [facility] Allergies, Adverse Reactions, Alerts Allergy Allergy Status Severity Reaction(s) Onset Inactive Treating Comm ents Source Name Type Date Date Clinician amoxicil DA Active [facility] [place] [facility] Pen[place] DA Active U 2019-06 [facility] ins 07[facility]02 [place] [facility] warfarin DA Active U 2019-06 [facility] 07[facility] [place] [facility] clopidog DA Active U 2019-06 [facility] rel 07-02 [place] 00:[facility] Clopidog Drug Active Other (See Decreases C [facility] rel Intolera Comments) 3-11 heartrate Liudmila kes - nce 00:00: Medical Center Warfarin Propensi Active Nausea And 2015-[address] [facility] to [facility]iting 2- [facility] - adverse 00:00: Medical reaction 00 Center s warfarin warfarin Active Memori a l Jimmy Plavix Plavix Active Memoria l Jimmy orphenad drug Active [facility] [place] [place] [facility] warfarin drug Active [facility] [place] [place] [facility] Family History Family Member Diagnosis Comments Start Date Stop Date Source Natural mother Diabetes [facility] Natural mother Hypertension [facility] Social History Social Habit Start Date Stop Date Quantity Comments Source Sex Assigned At [facility] Cigarettes smoked 2018-08-21 2018-08-21 [facility] - current (pack per 00:00:00 00:00:00 [facility] day) - Reported Cigarette 2018-08-21 2018-08-21 [facility] - pack-years 00:00:00 00:00:00 [facility] Tobacco use and 2018-08-21 2018-08-21 Never used [facility] - exposure 00:00:00 00:00:00 [facility] Alcohol intake 2018-08-21 2018-08-21 [facility] 00:[facility] 00:00:00 non-drinker of [facility] nter alcohol (finding) Social History 2015-01-10 2015-01-10 [facility] 21:45:28 21:45:28 History of tobacco 1993-07-08 [address] smoker [facility] - use 00:00:00 [facility] Smoking Status Start Date Stop Date Source Former smoker 2018-08-21 00:00:00 2018-08-21 00:00:00 [facility] Medications Ordered Filled Start Stop Current Ordering [...] times Ondansetron No Notes: Jose G rene -17 (Same as: l 15:24: Zofran) MEDICATION WASTE Product Size: 4 mg Product Wasted: ___ mg Naloxone No Notes: Memoria 4-17 Same as l 15:24: Narcan Flumazenil No Notes: Memor ia -17 (Same as: l 15:24: Romazicon) albuterol Yes 2 puff, Memor ia 90 mcg/inh 4-03 INHALATION l inhalation 18:17: , PRN, 0 Her espino aerosol 00 Refill(s) Symbicort Yes 2 puff, Memor ia 160/4.5 4-03 INHALATION l inhalation 18:16: , Daily, 0 H ermann aerosol 00 Refill(s) with adapter Dexilant 2019-0 Yes PO, Daily, Mem oria 4-03 0 l 18:15: Refill(s) Jimmy topiramate Yes 50 mg = 1 Me moria 50 MG Oral 4-03 tab, PO, l Tablet 18:15: BID, # 60 Edmund n [Topamax] 00 tab, 0 Refill(s) Amlodipine 2019 Yes PO, PRN, 0 M emoria 4-03 Refill(s) l 18:13: [place] 00 Vitamin D3 Yes = 1 cap, Mem oria 4-03 PO, Every l 18:11: Other Day, Jimmy 00 0 Refill(s) pantoprazol Yes 50 mg, PO, Memoria e 20 MG 4-03 BID, 0 l Enteric 18:10: Refill(s) Aure nn Coated 00 Tablet [Protonix] lisinopril Yes 10 mg = 1 Me moria 10 mg oral 4-03 tab, PO, l tablet 18:09: Daily, 0 Jimmy 00 Refill(s) Vitamin D Vitamin D Yes PHILL Take 1 Univers (Ergocalcif (Ergocalcif 1-04 MORAES N.P. capsule ity of katrin) 78165 katrin) 24688 00:00: two times [place] UNIT Oral UNIT Oral 00 per week P hysici Capsule Capsule ans atorvastati No 40 mg = 1 M emoria n 40 mg 1-03 tab, PO, l oral tablet 18:37: Bedtime, # Jimmy 00 30 tab, 0 Refill(s), Pharmacy: [id number] Aspirin 81 Yes 81 mg = 1 Me moria MG Chewable 1-03 tab, PO, l Tablet 18:37: Daily, # [place] 00 30 tab, 0 Refill(s), Pharmacy: [facility] Metformin Yes 500 mg, Memor ia hydrochlori 1-03 PO, BID, # l de 500 MG 18:37: 60 tab, 0 Her espino Oral Tablet 00 Refill(s), [Glucophage Pharmacy: ] [facility] clopidogrel No 75 mg = 1 M emoria 75 mg oral 1-03 tab, PO, l tablet 18:37: Daily, # [place] 00 30 tab, 0 Refill(s), Pharmacy: [facility] Sodium No 25 mL, Memoria Chloride 06-15 Route: IV, l 0.9% IV 13:56: Start date: 06/15/18 7:56:00 [employer], Duration: 30 day, Stop date: 07/15/18 7:55:00 [employer]EL[employer], PRN Line Flush BD Normal No Notes: [...] kg, Priority: NOW, Start date: 06/14/18 9:36:00 [employer]EL[employer], Duration: 30 day, Stop date: 07/14/18 9:00:00 [employer]EL[employer] pantoprazol No Notes: For Memoria e - IV push l 22:30: reconstitu te with 10 ml 0.9% sodium chloride and push over 2 minutes. (Same as: Protonix) Fentanyl No Notes: Memoria 06-13 (Same as: l 18:00: Sublimaze) Preservat linnette free. chlorhexidi No Notes: Jose G rene ne 06-13 (Same As: l gluconate 15:00: Peridex) Herm mio 1.2 MG/ML 00 Mouthwash Famotidine No Notes: Memor ia 06-13 (Same as: l 15:00: Pepcid) Can be dilute in 5-10cc NS IVP: Slow IV push over at least 2 minutes. Saline No Notes: Memoria Flush 0.9% 06-13 (Same as: l 15:00: BD Posiflush) Aspirin 81 No 81 mg = 1 Me moria MG Chewable 06-13 tab, PO, l Tablet 12:28: Daily, tab, 0 Refill(s) Zofran No Notes: Memoria 06-13 (Same as: l 12:17: Zofran) MEDICATION WASTE Product Size: 4 mg Product Wasted: ___ mg Promethazin No 12.5 mg, Me moria e 06-13 50 mL, l 12:17: Route: IVPB, Drug form: SOLN, Q6H, Dosing Weight 165.3, kg, PRN Nausea & Vomiting, Start date: 06/13/18 6:17:00 [employer]EL[employer], Duration: 30 day, Stop date: 07/13/18 6:16:00 [employer]EL[employer] ocular No Notes: Memoria lubricant 06-13 (Same as: l 12:00: Refresh Plus) Enoxaparin No 40 mg, Memor ia 06-13 Route: l 11:00: SUB-Q, Drug form: INJ, [id number], Dosing Weight 150.091, kg, Start date: 06/13/18 5:00:00 [employer]EL[employer], Duration: 30 day, Stop date: 07/12/18 5:00:00 [employer]EL[employer] chlorhexidi 0 No Notes: Jose G rene ne 06-13 (Same As: l gluconate 10:34: Peridex) Herm mio 1.2 MG/ML 00 Mouthwash Insulin No 60 Memoria regular 06-13 units) l 10:30: WASTE: F/P [place] - Black; E - Municipal Trash Bin Stable for 28 days at room temperatur e Expires in days from ____Date Dextrose No 12.5 gm, Memor ia 50% Syringe 06-13 25 mL, l 10:30: Route: IVP, Drug Form: INJ, Dosing Weight 150.091, kg, PRN, PRN Blood Glucose Results, Start date: 06/13/18 4:30:00 [employer]EL[employer], Duration: 30 day, Stop date: 07/13/18 4:29:00 [employer]ELOPER Glucagon No 1 mg, Memoria 06-13 Route: IM, l 10:30: Drug form: PDR/INJ, PRN, Dosing Weight 150.091, kg, PRN Blood Glucose Results, Start date: 06/13/18 4:30:00 [employer]EL[employer], Duration: 30 day, Stop date: 07/13/18 4:29:00 [employer]EL[employer] Lactated 0 No 1,000 mL, Jose G rene Ringers IV 06-13 Rate: 125 l 1,000 mL 10:29: ml/hr, Infuse over: 8 hr, Route: IV, Dosing Weight 150.091 kg, Total Volume: 1,000, Start date: 06/13/18 4:29:00 [employer]ELOPER, Duration: 30 day, Stop date: 07/13/18 4:28:00 [employer]ELOPER, 2.63, m2 Saline No Notes: Memoria Flush 0.9% 06-13 (Same as: l 10:29: BD Jimmy 00 Posiflush) Vitamin D Vitamin D Yes PHILL Take 1 Univers (Ergocalcif (Ergocalcif 9-11 MORAES N.P. capsule ity of katrin) 67699 katrin) 08675 00:00: two times [place] UNIT Oral UNIT [...] 20 MG Oral ity of Tablet Tablet [place] Physici ans Pantoprazol Pantoprazol Yes U nivers e Sodium 40 e Sodium 40 i ty of MG Oral MG Oral [place] Tablet Tablet Physici Delayed Delayed ans Release Release ProAir HFA ProAir HFA Yes Uni vers AERS AERS ity of [place] Physici ans predniSONE predniSONE Yes Uni vers TABS TABS ity of [place] Physici ans Vital Signs Vital Name Observation Time Observation Value Comments Source Respitory Rate 2018-09-27 [facility] 17:30:00 Systolic (mm Hg) 2018-09-27 [facility] He rmann 17:30:00 Diastolic (mm Hg) 2018-09-27 [facility] H ermann 17:30:00 Systolic (mm Hg) 2018-09-27 [facility] rmann 17:00:00 Diastolic (mm Hg) 2018-09-27 [facility] H ermann 17:00:00 Respitory Rate 2018-09-27 [facility] 17:00:00 Systolic (mm Hg) 2018-09-27 [facility] He rmann 16:45:00 Diastolic (mm Hg) 2018-09-27 [facility] H ermann 16:45:00 Respitory Rate 2018-09-27 [facility] 16:45:00 Heart Rate 2018-09-27 [facility] Edmund n 13:00:00 BMI Calculated 2018-09-13 [facility] 17:20:00 Weight 2018-09-13 [facility] Edmund n 17:20:00 Height 2018-09-13 160.02 cm [facility] Edmund n 17:20:00 Heart Rate 2018-09-13 [facility] Edmund n 17:20:00 BP Systolic 2018-08-04 153 mm[Hg] Location: [facility] 11:06:00 Position: [place] Physician s Sitting BP Diastolic 2018-08-04 96 mm[Hg] Location: [facility] 11:06:00 Position: [place] Physician s Sitting Height 2018-08-04 63 [in_us] [facility] 11:06:00 [place] Physician s Weight 2018-08-04 361 [lb_av] [facility] 11:06:00 [place] Physician s Body Mass Index 2018-08-04 63.95 kg/m2 University o f Calculated 11:06:00 [place] Physician s Temperature 2018-08-04 97.4 [degF] Method: Oral [facility] 11:06:00 [place] Physician s Heart Rate 2018-08-04 77 /min [facility] 11:06:00 [place] Physician s Systolic (mm Hg) 2018-06-15 [facility] rmann 18:00:00 Diastolic (mm Hg) 2018-06-15 [...] ermann 12:00:00 Temperature Oral 2018-06-15 98.4 F [facility] Jonah rmann (F) 02:00:00 Temperature Oral 2018-06-14 97.7 F [facility] Jonah rmann (F) 22:00:00 Height 2018-06-13 160.02 cm Oskar Toussaintan n 16:57:00 Height 2018-06-13 160.02 cm Oskar Toussaintan n 15:48:00 Height 2018-06-13 160.02 cm Oskar Toussaintan n 14:19:00 BMI Calculated 2018-06-13 [facility] 10:34:00 Weight 2018-06-13 [facility] Edmund n 10:34:00 BP Systolic 2018-05-09 165 mm[Hg] Location: [facility] 00:00:00 Position: [place] Physician s Sitting BP Diastolic 2018-05-09 91 mm[Hg] Location: [facility] 00:00:00 Position: [place] Physician s Sitting Height 2018-05-09 63 [in_us] [facility] of 00:00:00 [place] Physician s Weight 2018-05-09 354.375 [lb_av] [place] [facility] 00:00:00 [place] Physician s Body Mass Index 2018-05-09 62.77 kg/m2 University o Calculated 00:00:00 [place] Physician s Temperature 2018-05-09 99 [degF] Method: Oral University of 00:00:00 [place] Physician s Heart Rate 2018-05-09 66 /min University of 00:00:00 [place] Physician s BP Systolic 2018-02-21 155 mm[Hg] Location: [facility] 17:49:00 Position: [place] Physician s Sitting BP Diastolic 2018-02-21 93 mm[Hg] Location: [facility] 17:49:00 Position: [place] Physician s Sitting Height 2018-02-21 63 [in_us] [facility] 17:49:00 [place] Physician s Weight 2018-02-21 355 [lb_av] University 17:49:00 [place] Physician s Body Mass Index 2018-02-21 62.89 kg/m2 University o f Calculated 17:49:00 [place] Physician s Temperature 2018-02-21 98.5 [degF] Method: Oral [facility] 17:49:00 [place] Physician s Heart Rate 2018-02-21 82 /min [facility] 17:49:00 [place] Physician s BP Systolic 2018-01-17 158 mm[Hg] Location: [facility]; [facility] 14:18:00 Position: [place] Physician s Sitting BP Diastolic 2018-01-17 95 mm[Hg] Location: [facility]; [facility] 14:18:00 Position: [place] Physician s Sitting Height 2018-01-17 63 [in_us] University 14:18:00 [place] Physician s Weight 2018-01-17 354 [lb_av] [facility] 14:18:00 [place] Physician s Body Mass Index 2018-01-17 62.71 kg/m2 University o f Calculated 14:18:00 [place] Physician s Temperature 2018-01-17 98.1 [degF] Method: [facility] 14:18:00 [place] Physician s Heart Rate 2018-01-17 80 /min [facility] 14:18:00 [place] Physician s BP Systolic 2017-12-16 146 mm[Hg] Location: [facility]; [facility] 09:28:00 Position: [place] Physician s Sitting BP Diastolic 2017-12-16 98 mm[Hg] Location: [facility]; [facility] 09:28:00 Position: [place] Physician s Sitting Height 2017-12-16 63 [in_us] University 09:28:00 [place] Physician s Weight 2017-12-16 365 [lb_av] [facility] 09:28:00 [place] Physician s Body Mass Index 2017-12-16 64.66 kg/m2 University o f Calculated 09:28:00 [place] Physician s Temperature 2017-12-16 98.1 [degF] Method: Oral [facility] 09:28:00 [place] Physician s Heart Rate 2017-12-16 66 /min University 09:28:00 [place] Physician s Procedures Procedure Date / Time Performing Clinician Source Performed Arthroscopy of knee with 2015-01-13 05:00:00 Roldan Marquez medial and lateral meniscectomy Operation<sup>1</sup> 2013-06-13 06:00:00 Everton Barr Hysterectomy 2008-06-13 06:00:00 [facility] Her espino Tubal ligation 1996-06-13 06:00:00 [facility] Her espino Operation<sup>3</sup> 1980-06-13 06:00:00 Everton Barr History of University o f [place] section Physicians History of Hysterectomy [facility] total Physicians History of Cholecystectomy [facility] Physicians History of Hernia repair [facility] Physicians History of Knee surgery [facility] Physicians Plan of Care Planned Activity Planned Date Details Comments Source Future Scheduled 2020-12-[address] [facility] 00:00:00 (procedure) [code = [facility] [id number]] Future Scheduled 2020-02-[address] [facility] Test 00:00:00 (#1) [code = [facility] INFLUENZA VACCINE (#1)] Future Scheduled 2018-06-[address] [facility] - Test 00:00:00 WELLNESS (YEAR 2 or Medical Center FIRST YEAR if no IPPE) [code = MEDICARE ANNUAL WELLNESS (YEAR 2 or FIRST YEAR if no IPPE)] Future Scheduled [address] [facility] - Test 00:00:00 malignant neoplasm Medical C enter of cervix (procedure) [code = 397883014] Encounters Start End Encounter Admission Attending Care Care Encounter Source Date/Time Date/Time Type Type Clinicians Facility Department ID 2020-10-28 2020-10-28 Orders Doctor DARREN [id number] 00:00:00 00:00:00 Only Unassigned, LEO [id number] [place] [facility] [id number] 2020-10-20 2020-10-20 Telephone Lucian Mujica [facility] [id number] 00:00:00 00:00:00 S HEALTH [id number] FAMILY [id number] MEDICINE [id number] [place] [address] [place] [address] 2018-09-27 2018-09-27 [facility] [id number] 07:11:00 23:59:00 Kushal D 00 2018-09-27 2018-09-27 Outpatient [facility] JUANA [address] [facility] 07:11:00 07:11:2018-09-05 2018-09-05 AppointRADHA Knapp [id number] Univers 12:45:00 12:45:00 t; PHILL MORAES NP i ty of PHI PO[place] Physici ans 2018-08-04 2018-08-04 AppointRADHA Sanz [id number] Univers 10:00:00 10:00:00 t; KUSHAL MORTON M.D. Surgery ity of [place] [facility]IM[facility] as Physici ans 2018-06-13 2018-06-15 Outpatient Vu, Antoine [facility] [id number] 04:15:00 14:49:00 Abimael 2018 2018 Appointmen GLADYS GARCIA [facility] [id number] Univers 09:45:00 09:45:00 t; DEUCE Jacobson ity of [place]ES BOUCH[place], DEUCE, Physi ci RD ans 2018-05-09 2018-05-09 AppointRADHA Knapp [id number] Univers 13:45:00 13:45:00 t; PHILL MORAES NP Surgery i ty of [place] Specialty [facility] as Physici ans 2018-05-02 2018-05-02 AppointRADHA Knapp [id number] Univers 13:00:00 13:00:00 t; PHILL MORAES NP i ty of [place] Physici ans 2018-04-06 2018-04-06 AppointRADHA Knapp [id number] Univers 12:00:00 12:00:00 t; PHILL MORAES NP i ty of PHI [place] Physici ans 2018-02-21 2018-02-21 AppointRADHA Knappaire [id number] Univers 13:30:00 13:30:00 t; PHILL MORAES NP Surgery i ty of [place] Specialty [facility] as Physici ans 2018-01-17 2018-01-17 RADHA Shultz [id number] Univers 15:00:00 15:00:00 t; PHILL MORAES NP Surgery i ty of [place] Specialty [facility] as Physici ans 2018-01-06 2018-01-06 Appointmen [facility] [id number] Univers 10:30:00 10:30:00 t; DEUCE Jacobson ity of [place] [facility] [place], DEUCE, Physi ci RD ans 2017-12-16 2017-12-16 Appointtyson MORTON RADHA [place] [id number] [facility] 09:15:00 09:15:00 t; KUSHAL MORTON M.D. Surgery Herb M.D. Specialty Mau as Physici ans Results Test Description Test Time Test Comments Results Result Comments Source GLUCOSE BEDSIDE TESTING 2020-11-04 11:18:00 Test Item Value Reference Range Interpretation Comme nts GLUCOSE BEDSIDE TESTING (test code = GLUBED) 127 MG/DL 70-119 H COVID 19 Asymptomatic IH [id number] 11:01:00 Test Item Value Reference Range Interpretation Comments COVID 19 Asymptomatic IH AG (test Negative Neg code = COVNONPUIAG) GLUCOSE BEDSIDE [id number] 06:07:00 Test Item Value Reference Range Interpretation Comments GLUCOSE BEDSIDE TESTING (test code 138 MG/DL 70-119 H = GLUBED) GLUCOSE BEDSIDE [id number] 20:58:00 Test Item Value Reference Range Interpretation Comments GLUCOSE BEDSIDE TESTING (test code 190 MG/DL 70-119 H = GLUBED) GLUCOSE BEDSIDE [id number] 16:30:00 Test Item Value Reference Range Interpretation Comments GLUCOSE BEDSIDE TESTING (test code 152 MG/DL 70-119 H = GLUBED) GLUCOSE BEDSIDE [id number] 11:40:00 Test Item Value Reference Range Interpretation Comments GLUCOSE BEDSIDE TESTING (test code 151 MG/DL 70-119 H = GLUBED) GLUCOSE BEDSIDE [id number] 05:53:00 Test Item Value Reference Range Interpretation Comments GLUCOSE BEDSIDE TESTING (test code 124 MG/DL 70-119 H = GLUBED) GLUCOSE BEDSIDE [id number] 21:00:00 Test Item Value Reference Range Interpretation Comments GLUCOSE BEDSIDE TESTING (test code 151 MG/DL 70-119 H = GLUBED) GLUCOSE BEDSIDE [id number] 16:24:00 Test Item Value Reference Range Interpretation Comments GLUCOSE BEDSIDE TESTING (test code 118 MG/DL 70-119 N = GLUBED) GLUCOSE BEDSIDE [id number] 11:46:00 Test Item Value Reference Range Interpretation Comments GLUCOSE BEDSIDE TESTING (test code 129 MG/DL 70-119 H = GLUBED) GLUCOSE BEDSIDE [id number] 06:20:00 Test Item Value Reference Range Interpretation Comments GLUCOSE BEDSIDE TESTING (test code = 98 MG/DL 70-119 N GLUBED) GLUCOSE BEDSIDE [id number] 19:56:00 Test Item Value Reference Range Interpretation Comments GLUCOSE BEDSIDE TESTING (test code 130 MG/DL 70-119 H = GLUBED) GLUCOSE BEDSIDE [id number] 15:54:00 Test Item Value Reference Range Interpretation Comments GLUCOSE BEDSIDE TESTING (test code = 93 MG/DL 70-119 N GLUBED) GLUCOSE BEDSIDE [id number] 11:38:00 Test Item Value Reference Range Interpretation Comments GLUCOSE BEDSIDE TESTING (test code 133 MG/DL 70-119 H = GLUBED) GLUCOSE BEDSIDE [id number] 06:07:00 Test Item Value Reference Range Interpretation Comments GLUCOSE BEDSIDE TESTING (test code 106 MG/DL 70-119 N = GLUBED) - CT HEAD/BRAIN W/O [id number] 23:08:00 [facility] 1975 Sex: F Patient Name: GIOVANNY HARRISON Unit No: [id number] EXAMS: CPT CODE: [id number] CT HEAD/BRAIN W/O [id number] EXAM: - CT HEAD/BRAIN W/O CONT LOCATION: H57 HISTORY: 45 years-year old Female with R/O STROKE TECHNIQUE: Computerized tomography images from the skull base to the vertex were obtained. Coronal and sagittal reformatted images are provided. This exam was performed according to our departmental dose-opti mization program, which includes automated exposure control, adjustment of the mA and/or kV according to patient size and/or use of iterative reconstruction technique COMPARISON: 10/28/2020 FINDINGS: Brain: The brain parenchyma is unremarkable. There is no evidence of an acute territorial infarct. There is no mass effect, midline shift, or parenchymal edema. Ventricles/Extra-axial spaces: There is no acute intracranial hemorrhage or extra-axial fluid collection. The ventricles are unremarkable. No basal cistern effacement. Bones: There is no evidence of acute displaced calvarial fracture. Sinuses: The visualized paranasal sinuses and mastoid air cells are clear. Soft Tissues: Unremarkable. Other: None. IMPRESSION: 1. No CT evidence of acute intracranial abnormality. at 2308 Reported and signed by: Jaya Alcocer MD CC: Heather Keller; Zander Camilo MD Dictated Date/Time: 10/31/2020 (2307) Technologist: Sara Varela CTDI: 43.27 DLP: 757.79 Trnscrpt: 10/31/2020 (2307) Rico [email or web address] RAND Willis NAME: GIOVANNY HARRISON Demeure IMAGING PHYS: ANNAMARIA Keller[address] : 1975 AGE: 45 SEX: F YAYA WILLIS [facility] LOC: B.[address] PHONE #: [phone] EXAM DATE: 10/31/2020 STATUS: ADM IN FAX #: [phone] RAD #: D/C DT PAGE 1 Signed Report Patient Name: GIOVANNY HARRISON Unit No: [id number] EXAMS: CPT CODE: [id number] CT HEAD/BRAIN W/O CONT 72723 <Continued> Orig Print D/T: S: 10/31/2020 (2311) RAND Willis NAME: GIOVANNY HARRISON [facility] IMAGING PHYS: ANNAMARIA Keller[address] : 1975 AGE: 45 SEX: F YAYA WILLIS [facility] LOC: B.[address] PHONE #: [phone] EXAM DATE: 10/31/2020 STATUS: ADM IN FAX #: [phone] RAD #: D/C DT PAGE 2 Signed ReportGLUCOSE BEDSIDE [id number] 20:30:00 Test Item Value Reference Range Interpretation Comments GLUCOSE BEDSIDE TESTING (test code 111 MG/DL 70-119 N = GLUBED) GLUCOSE BEDSIDE [id number] 16:58:00 Test Item Value Reference Range Interpretation Comments GLUCOSE BEDSIDE TESTING (test code 110 MG/DL 70-119 N = GLUBED) GLUCOSE BEDSIDE [id number] 11:53:00 Test Item Value Reference Range Interpretation Comments GLUCOSE BEDSIDE TESTING (test code 149 MG/DL 70-119 H = GLUBED) GLUCOSE BEDSIDE [id number] 06:44:00 Test Item Value Reference Range Interpretation Comments GLUCOSE BEDSIDE TESTING (test code 119 MG/DL 70-119 N = GLUBED) GLUCOSE BEDSIDE [id number] 21:10:00 Test Item Value Reference Range Interpretation Comments GLUCOSE BEDSIDE TESTING (test code 143 MG/DL 70-119 H = GLUBED) - CT ANGIO [id number] 14:40:00 [facility] : 1975 Sex: F Patient Name: GIOVANNY HARRISON Unit No: [id number] EXAMS: CPT CODE: [id number] CT ANGIO [id number] Location code: R 16 CT Angiogram of the Carotid Arteries Indication: STROKE. Comparison: 10/27/2020. Technique: Axial images were obtained post IV contrast with sagittal and coronal MIPS. This exam was performed according to our departmental dose- optimization program, which includes H5 automated exposure control, adjustment of the mA and/or kV according to patient size and/or use of iterative reconstruction technique. Total exam DLP 1429.59 Contrast: 95 mL Isovue-370 IV.. Findings: Right carotid arterial system: the common carotid, internal carotid, and external carotid arteries are patent with no evidence of stenosis, aneurysm format ion, or atherosclerotic diease. Left carotid arterial system: the common carotid, internal carotid, and external carotid arteries are patent with no evidence of stenosis, aneurysm formation, or atherosclerotic diease. Right vertebral artery: Unremarkable. Left vertebral artery: Unremarkable. Other visualized neck structures: Unremarka ble. Impression: 1. Unremarkable CT angiogram of the carotid arteries. [facility] [place] Contrast Indication: Stenosis, aneurysm. Comparison: 10/27/2020. Technique: Axial images were obtained post IV contrast with Sagittal and coronal MIPS. This exam was performed according to our departmental dose-optimization program, which includes automated exposure control, adjustment of the mA and/or kV according to patient size and/or use of [facility] Jean Carlos NAME: GIOVANNY HARRISON [facility] PHYS: Heather Jackson [address] [place] [address] BLVD : 1975 AGE: 45 SEX: F JEAN CARLOS [place] [address] [facility] [id number] LOC: B.160 W PHONE #: [phone] EXAM DATE: 10/30/2020 STATUS: ADM IN FAX #: [phone] RAD #: D/C DT PAGE 1 Signed Report (CONTINUED) Patient Name: GIOVANNY CASTRO Unit No: [id number] EXAMS: CPT CODE: [id number] CT ANGIO HEAD [address] <Continued> iterative reconstruction technique. Total exam DLP 1429.59 Contrast: 95 mL Isovue-370 IV. Findings: The internal carotid arteries, middle cerebral arteries anterior cerebral arteries are normal in appearance. The anterior communicating artery is patent. Posterior communicating arteries are patent. The vertebrobasilar system, including the posterior cerebral arteries, are normalin appearance. The right posterior cerebral arteries primarily supplied by the right carotid system. No evidence of aneurysm, stenosis, or occlusion. No evidence of vascular malformation. Impression: 1. Normal exam. at 1440 Reported and signed by: Omi Sherman MD CC: Heather Keller; Zander Camilo MD Dictated Date/Time: 10/30/2020 (1440) Technologist: Gama Lewis CTDI: 0DLP: 0 [facility] Jean Carlos NAME: GIOVANNY HARRISON MEDICAL IMAGING PHYS: ANNAMARIA Keller [address] 1975 AGE: 45 SEX: YAYA GERMAN [facility] LOC:B.[address] PHONE #: [phone] EXAM DATE: 10/30/2020 STATUS: ADM IN FAX #: [phone] RAD #: D/C DT PAGE 2 SignedReport Patient Name: GIOVANNY HARRISON Unit No: [id number] EXAMS: CPT CODE: [id number] CT ANGIO HEAD [address]3471 <Continued> Trnscrpt: 10/30/2020 (1440) [email or web address] [facility] NAME: [facility] PHYS: [facility] : 1975 AGE: 45 SEX: YAYA GERMAN [facility] LOC: B.[address] PHONE #: [phone] EXAM DATE: 10/30/2020 STATUS: ADM IN FAX #: [phone] RAD #: D/C DT PAGE 3 Signed Report- CT ANGIO NECK 2020-10-30 14:40:00 [facility] : 1975 Sex: F Patient Name: GIOVANNY HARRISON Unit No: [id number] EXAMS: CPT CODE: [id number] CT ANGIO [id number] Location code: R 16 CT Angiogram of the Carotid Arteries Indication: STROKE. Comparison: 10/27/2020. Technique: Axial images were obtained post IV contrast with sagittal and coronal MIPS. This exam was performed according to our departmental dose- optimization program, which includes H5 automated exposure control, adjustment of the mA and/or kV according to patient size and/or use of iterative reconstruction technique. Total exam DLP 1429.59 Contrast: 95 mL Isovue-370 IV.. Findings: Right carotid arterial system: the common carotid, internal carotid, and external carotid arteries are patent with no evidence of stenosis, aneurysm format ion, or atherosclerotic diease. Left carotid arterial system: the common carotid, internal carotid, and external carotid arteries are patent with no evidence of stenosis, aneurysm formation, or atherosclerotic diease. Right vertebral artery: Unremarkable. Left vertebral artery: Unremarkable. Other visualized neck structures: Unremarka ble. Impression: 1. Unremarkable CT angiogram of the carotid arteries. CT [place] with Contrast Indication: Stenosis, aneurysm. Comparison: 10/27/2020. Technique: Axial images were obtained post IV contrast with Sagittal and coronal MIPS. This exam was performed according to our departmental dose-optimization program, which includes automated exposure control, adjustment of the mA and/or kV according to patient size and/or use of [facility] Jean Cralos NAME: GIOVANNY HARRISON MEDICAL IMAGING PHYS: Heather Jackson [address] [place] [address] BLVD : 1975 AGE: 45 SEX: F YAYA WILLIS [address] [facility] [id number] LOC: B.[address] W PHONE #: [phone] EXAM DATE: 10/30/2020 STATUS: ADM IN FAX #: [phone] RAD #: D/C DT PAGE 1 Signed Report (CONTINUED) Patient Name: GIOVANNY CASTRO Unit No: [id number] EXAMS: CPT CODE: [id number] CT ANGIO NECK [address]39[address] <Continued> iterative reconstruction technique. Total exam DLP 1429.59 Contrast: 95 mL Isovue-370 IV. Findings: The internal carotid arteries, middle cerebral arteries anterior cerebral arteries are normal in appearance. The anterior communicating artery is patent. Posterior communicating arteries are patent. The vertebrobasilar system, including the posterior cerebral arteries, are normalin appearance. The right posterior cerebral arteries primarily supplied by the right carotid system. No evidence of aneurysm, stenosis, or occlusion. No evidence of vascular malformation. Impression: 1. Normal exam. at 1440 Reported and signed by: Omi Sherman MD CC: Heather Keller; Zander Camilo MD Dictated Date/Time: 10/30/2020 (1440) Technologist: Gama Lewis CTDI: 62.79 DLP: 1429.59 Trnscrpt: 10/30/2020 (1440) [email or web address] RAND Willis NAME: GIOVANNY HARRISON [facility] IMAGING PHYS: ANNAMARIA Arianna[address] : 1975 AGE: 45 SEX: [place] [address] LOC: B.[address] PHONE #: [phone] EXAM DATE: 10/30/2020 STATUS: ADM IN FAX #: [phone] RAD #: D/C DT PAGE 2 Signed Report Patient Name: GIOVANNY HARRISON Unit No: [id number] EXAMS: CPT CODE: [id number] CT ANGIO NECK [address] <Continued> Orig Print D/T: S: 10/30/2020 (2773) RAND Willis NAME: GIOVANNY HARRISON [facility] IMAGING PHYS: ANNAMARIA Keller[address] : 1975 AGE: 45 SEX: [place] [address] LOC: B.[address] PHONE #: [phone] EXAM DATE: 10/30/2020 STATUS: ADM IN FAX #: [phone] RAD #: D/C DT PAGE 3 Signed ReportBASIC METABOLIC [id number] 08:27:00 Test Item Value Reference Range Interpretation Comments SODIUM (test code = 140.0 mmol/L 133-144 N NA) POTASSIUM (test 3.7 mmol/L 3.5-5.1 N code = K) CHLORIDE (test code 111 mmol/L 95-105 H = CL) CARBON DIOXIDE 23 mmol/L 21-32 (test code = CO2) ANION GAP (test 6.0 GAP calc 4.0-15.0 N code = GAP) GLUCOSE (test code 116 MG/DL 70-110 H = GLU) BLOOD UREA NITROGEN 15 MG/DL 7-18 N (test code = BUN) CREATININE (test 0.54 MG/DL 0.55-1.30 L Results may be code = CREAT) depressed if p atient is takingN-Acetylc ystei ne (NAC) and Metamizole (Dipyrone). CALCIUM (test code 8.7 MG/DL 8.5-10.1 N = CA) INDEX HEMOLYSIS 4 SMALL 50-200 See_Comment A [Automate d message] (test code = MG Index/DL The system [employer]) generated this result transmit octvaiano reference range : 1 NORMAL. The reference range was not used to interpret this result as normal/abnormal . INDEX ICTERIC (test 1 NORMAL <2 MG See_Comment [Auto mated message] code = ICTINDEX) Index/DL The system which generated this result transmit octaviano reference range : 1 NORMAL. The reference range was not used to interpret this result as normal/abnormal . INDEX LIPEMIA (test 1 NORMAL <50 MG See_Comment [Aut omated message] code = LIPINDEX) Index/DL The system which generated this result transmit octaviano reference range : 1 NORMAL. The reference range was not used to interpret this result as normal/abnormal . CBC W/AUTO [id number] 07:39:00 Test Item Value Reference Range Interpretation Comments WHITE BLOOD CELL (test code = 7.4 K/mm3 4.1-12.1 N WBC) RED BLOOD CELL (test code = RBC) 3.84 M/mm3 3.8-5.5 N HEMOGLOBIN (test code = HGB) 11.1 G/DL 10.6-15.8 N HEMATOCRIT (test code = HCT) 37.8 % 31.8-47.4 N MEAN CELL VOLUME (test code = 98.4 fL 80.1-101.1 N MCV) MEAN CELL HGB (test code = MCH) 28.9 pg 25.3-35.3 N MEAN CELL HGB CONCETRATION (test 29.4 G/DL 32.7-35.1 L code = MCHC) RED CELL DISTRIBUTION WIDTH 14.6 % 12.2-16.4 N (test code = RDW) RED CELL DISTRIBUTION WIDTH 53.1 fL 36.4-46.3 H (test code = RDW-SD) PLATELET COUNT (test code = PLT) 196 K/mm3 155-337 N MEAN PLATELET VOLUME (test code 12.0 fL 6.8-11.2 H = MPV) GRANULOCYTE % (test code = GR%) 69.4 % 37.8-82.6 N IMMATURE GRANULOCYTE % (test 0.7 % 0.0-2.0 N code = IG%) LYMPHOCYTE % (test code = LY%) 22.1 % 14.1-45.4 N MONOCYTE % (test code = MO%) 6.1 % 2.5-11.7 N EOSINOPHIL % (test code = EO%) 1.6 % 0.0-6.2 N BASOPHIL % (test code = BA%) 0.1 % 0.0-2.1 N NUCLEATED RBC % (test code = 0.0 /100WBC% 0.0-1.0 N NRBC%) GRANULOCYTE # (test code = GR#) 5.13 k/mm3 2.0-13.7 N IMMATURE GRANULOCYTE # (test 0.05 K/mm3 0.00-0.03 H code = IG#) LYMPHOCYTE # (test code = LY#) 1.63 K/mm3 0.6-3.8 N MONOCYTE # (test code = MO#) 0.45 K/mm3 0.11-0.59 N EOSINOPHIL # (test code = EO#) 0.12 K/mm3 0.0-0.4 N BASOPHIL # (test code = BA#) 0.01 K/mm3 0.0-0.1 N NUCLEATED RBC # (test code = 0.00 K/mm3 0.0-0.05 N NRBC#) GLUCOSE BEDSIDE [id number] 20:47:00 Test Item Value Reference Range Interpretation Comments GLUCOSE BEDSIDE TESTING (test code 112 MG/DL 70-119 N = GLUBED) GLUCOSE BEDSIDE [id number] 18:38:00 Test Item Value Reference Range Interpretation Comments GLUCOSE BEDSIDE TESTING (test code = 84 MG/DL 70-119 N GLUBED) - CT HEAD/BRAIN W/O [id number] 09:37:00 [facility] : 1975 Sex: F Patient Name: GIOVANNY HARRISON Unit No: [id number] EXAMS: CPT CODE: [id number] CT HEAD/BRAIN W/O [id number] EXAM: - CT HEAD/BRAIN W/O CONT INDICATION: R/O ICH LOCATION: T18 COMPARISON: CT head examination on 10/27/2020. TECHNIQUE: Axial tomograms through the brain were obtained without intravenous contrast. Coronal and sagittal reformatted images are provided. All CT scans are performed using radiation dose reduction technique. Technical factors are evaluated and adjusted to insure appropriate moderation of exposure. Automated dose management technology is applied to adjust the radiation dose to minimize exposure while achieving a diagnostic quality image. The examination was performed on 10/28/2020 11:57 PM. I was requested to provide interpretation on 10/29/2020 at 9:35 AM. FINDINGS: Intra-axial and extra-axial structures: No CT evidence of acute territorial infarct, or intracranial hemorrhage seen. No mass effect, midline shift or hydrocephalus seen. Bones and soft tissues:Appear unremarkable. Paranasal sinuses, and mastoid air cells: Appear clear. Orbits:Visualized orbits appear unremarkable. IMPRESSION: No acute intracranial process seen. at 0937 Reported and signed by: Edmond Carter MD CC: Tyesha Dacosta MD; Zander Camilo MD; Omayra Alfonso Dictated Date/Time:10/29/2020 (0996) Technologist: Moriah Mills CTDI: 47.36 DLP: 757.79 Trnscrpt: 10/29/2020 (0937) [email or web address] RAND Willis NAME: GIOVANNY HARRISON MEDICAL IMAGING [facility] [address] : 1975 AGE: 45 SEX: F [place]AYA [place] [address] LOC: MichelleCCU34 D PHONE #: [phone] EXAM DATE: 10/28/2020 STATUS: ADM IN FAX #: [phone] RAD #: D/C DT PAGE 1 Signed Report Patient Name: GIOVANNY HARRISON Unit No: [id number] EXAMS: CPT CODE: [id number] CT HEAD/BRAIN W/O CONT 04109 <Continued> Orig Print D/T: S: 10/29/2020 (0940) RAND Willis NAME: GIOVANNY HARRISON MEDICAL IMAGING PHYS: [address] : 1975 AGE: 45 SEX: YAYA G[place] [address] LOC: MichelleCCU34 D PHONE #: [phone] EXAM DATE: 10/28/2020 STATUS: ADM IN FAX #: [phone] RAD #: D/C DT PAGE 2 Signed ReportBASIC METABOLIC PANEL 2020-10-29 06:27:00 Test Item Value Reference Range Interpretation Comments SODIUM (test code = 139.0 mmol/L 133-144 N NA) POTASSIUM (test 3.7 mmol/L 3.5-5.1 N code = K) CHLORIDE (test code 109 mmol/L 95-105 H = CL) CARBON DIOXIDE 28 mmol/L 21-32 N (test code = CO2) ANION GAP (test 2.0 GAP calc 4.0-15.0 L code = GAP) GLUCOSE (test code 120 MG/DL 70-110 H = GLU) BLOOD UREA NITROGEN 13 MG/DL 7-18 N (test code = BUN) CREATININE (test 0.62 MG/DL 0.55-1.30 N Results may be code = CREAT) depressed if p atient is takingN-Acetylc ystei ne (NAC) and Metamizole (Dipyrone). CALCIUM (test code 8.7 MG/DL 8.5-10.1 N = CA) INDEX HEMOLYSIS 1 NORMAL <10 MG See_Comment [Automat ed message] (test code = Index/DL The system [employer]) generated this result transmit octaviano reference range : 1 NORMAL. The reference range was not used to interpret this result as normal/abnormal . INDEX ICTERIC (test 1 NORMAL <2 MG See_Comment [Auto mated message] code = ICTINDEX) Index/DL The system which generated this result transmit octaviano reference range : 1 NORMAL. The reference range was not used to interpret this result as normal/abnormal . INDEX LIPEMIA (test 1 NORMAL <50 MG See_Comment [Aut omated message] code = LIPINDEX) Index/DL The system which generated this result transmit octaviano reference range : 1 NORMAL. The reference range was not used to interpret this result as normal/abnormal . CARBAMAZEPINE (TEGRETOL)2020-10-29 06:27:00 Test Item Value Reference Range Interpretation Comments CARBAMAZEPINE (TEGRETOL) (test 7.4 mcG/ML 4.0-12.0 N code = CARB) BASIC METABOLIC [id number] 06:25:00 Test Item Value Reference Range Interpretation Comments SODIUM (test code = 139.0 mmol/L 133-144 N NA) POTASSIUM (test 3.7 mmol/L 3.5-5.1 N code = K) CHLORIDE (test code 109 mmol/L 95-105 H = CL) CARBON DIOXIDE 28 mmol/L 21-32 N (test code = CO2) ANION GAP (test 2.0 GAP calc 4.0-15.0 L code = GAP) GLUCOSE (test code 120 MG/DL 70-110 H = GLU) BLOOD UREA NITROGEN 13 MG/DL 7-18 N (test code = BUN) CREATININE (test 0.62 MG/DL 0.55-1.30 N Results may be code = CREAT) depressed if p atient is takingN-Acetylc ystei ne (NAC) and Metamizole (Dipyrone). CALCIUM (test code 8.7 MG/DL 8.5-10.1 N = CA) INDEX HEMOLYSIS 1 NORMAL <10 MG See_Comment [Automat ed message] (test code = Index/DL The system whic h HEMINDEX) generated this result transmit octaviano reference range : 1 NORMAL. The reference range was not used to interpret this result as normal/abnormal . INDEX ICTERIC (test 1 NORMAL <2 MG See_Comment [Auto mated message] code = ICTINDEX) Index/DL The system which generated this result transmit octaviano reference range : 1 NORMAL. The reference range was not used to interpret this result as normal/abnormal . INDEX LIPEMIA (test 1 NORMAL <50 MG See_Comment [Aut omated message] code = LIPINDEX) Index/DL The system which generated this result transmit octaviano reference range : 1 NORMAL. The reference range was not used to interpret this result as normal/abnormal . CARBAMAZEPINE (TEGRETOL)2020-10-29 06:25:00 Test Item Value Reference Range Interpretation Comments CARBAMAZEPINE (TEGRETOL) (test code = mcG/ML 4.0-12.0 CARB) CBC W/AUTO [id number] 06:12:00 Test Item Value Reference Range Interpretation Comments WHITE BLOOD CELL (test code = 6.2 K/mm3 4.1-12.1 N WBC) RED BLOOD CELL (test code = RBC) 3.95 M/mm3 3.8-5.5 N HEMOGLOBIN (test code = HGB) 11.5 G/DL 10.6-15.8 N HEMATOCRIT (test code = HCT) 38.9 % 31.8-47.4 N MEAN CELL VOLUME (test code = 98.5 fL 80.1-101.1 N MCV) MEAN CELL HGB (test code = MCH) 29.1 pg 25.3-35.3 N MEAN CELL HGB CONCETRATION (test 29.6 G/DL 32.7-35.1 L code = MCHC) RED CELL DISTRIBUTION WIDTH 14.7 % 12.2-16.4 N (test code = RDW) RED CELL DISTRIBUTION WIDTH 53.5 fL 36.4-46.3 H (test code = RDW-SD) PLATELET COUNT (test code = PLT) 192 K/mm3 155-337 N MEAN PLATELET VOLUME (test code 11.8 fL 6.8-11.2 H = MPV) GRANULOCYTE % (test code = GR%) 68.5 % 37.8-82.6 N IMMATURE GRANULOCYTE % (test 0.5 % 0.0-2.0 N code = IG%) LYMPHOCYTE % (test code = LY%) 23.5 % 14.1-45.4 N MONOCYTE % (test code = MO%) 5.0 % 2.5-11.7 N EOSINOPHIL % (test code = EO%) 2.3 % 0.0-6.2 N BASOPHIL % (test code = BA%) 0.2 % 0.0-2.1 N NUCLEATED RBC % (test code = 0.0 /100WBC% 0.0-1.0 N NRBC%) GRANULOCYTE # (test code = GR#) 4.22 k/mm3 2.0-13.7 N IMMATURE GRANULOCYTE # (test 0.03 K/mm3 0.00-0.03 N code = IG#) LYMPHOCYTE # (test code = LY#) 1.45 K/mm3 0.6-3.8 N MONOCYTE # (test code = MO#) 0.31 K/mm3 0.11-0.59 N EOSINOPHIL # (test code = EO#) 0.14 K/mm3 0.0-0.4 N BASOPHIL # (test code = BA#) 0.01 K/mm3 0.0-0.1 N NUCLEATED RBC # (test code = 0.00 K/mm3 0.0-0.05 N NRBC#) GLUCOSE BEDSIDE [id number] 00:39:00 Test Item Value Reference Range Interpretation Comments GLUCOSE BEDSIDE TESTING (test 91 MG/DL 70-119 N Notified Nurse~ code = GLUBED) GLUCOSE BEDSIDE [id number] 17:31:00 Test Item Value Reference Range Interpretation Comments GLUCOSE BEDSIDE TESTING (test code 103 MG/DL 70-119 N = GLUBED) GLUCOSE BEDSIDE [id number] 12:56:00 Test Item Value Reference Range Interpretation Comments GLUCOSE BEDSIDE TESTING (test code = 99 MG/DL 70-119 N GLUBED) URINALYSIS [id number] 11:40:00 Test Item Value Reference Range Interpretation Comments UA COLOR (test code = LIGHT-YELLOW YELLOW COLU) DESCRIPT UA APPEARANCE (test CLEAR DESCRIPT CLEAR code = APPU) UA GLUCOSE DIPSTICK NORMAL (0) See_Comment [Automa octaviano (test code = DGLUU) mg/dL message] The system which generated this result transmit octaviano reference range : 0 (NORMAL). The reference range was not used to interpret this result as normal/abnormal . UA BILIRUBIN DIPSTICK NEGATIVE (0.0) See_Comment [Au tomated (test code = BILU) mg/dL message] The system which generated this result transmit octaviano reference range : (NEG) 0. The reference range was not used to interpret this result as normal/abnormal . UA KETONE DIPSTICK NEGATIVE (0) See_Comment [Automat ed (test code = KETU) mg/dL message] The system which generated this result transmit octaviano reference range : (NEG) 0. The reference range was not used to interpret this result as normal/abnormal . UA SPECIFIC GRAVITY 1.040 SG 1.001-1.035 A (test code = SGU) UA BLOOD DIPSTICK NEGATIVE (0.00) See_Comment [Autom ated (test code = LISA) mg/dL message] T he system which generated this result transmit octaviano reference range : 0 (NEG). The reference range was not used to interpret this result as normal/abnormal . UA PH DIPSTICK (test 6.5 pH UNITS 4.6-8.0 code = FLAVIO) UA PROTEIN DIPSTICK NEGATIVE (0) See_Comment [Automa octaviano (test code = PROU) mg/dL message] The system which generated this result transmit octaviano reference range : <30 (1+). The reference range was not used to interpret this result as normal/abnormal . UA UROBILINIOGEN NORMAL (0) See_Comment [Automated DIPSTICK (test code = mg/Dl messag e] The URO) system which generated this result transmit octaviano reference range : <2.0 (1+). The reference range was not used to interpret this result as normal/abnormal . UA NITRITE DIPSTICK NEGATIVE (0) NEG (test code = KYLE) SCREEN UA LEUKOCYTE ESTERASE NEGATIVE (0) See_Comment [Auto mated DIPSTICK (test code = Leuk/mcL messag e] The LEUU) system which generated this result transmit octaviano reference range : (NEG) 0. The reference range was not used to interpret this result as normal/abnormal . UA WBC (test code = 0-3 #WBC/HPF 0-3 WBCU) UA RBC (test code = NONE #RBC/HPF 0-3 RBCU) UA MUCUS (test code = RARE /LPF NONE MUCU) GLUCOSE BEDSIDE [id number] 08:42:00 Test Item Value Reference Range Interpretation Comments GLUCOSE BEDSIDE TESTING (test code = 97 MG/DL 70-119 N GLUBED) VITAMIN [id number] 08:05:00 Test Item Value Reference Range Interpretation Comments VITAMIN B12 (test code = VITB12) 382 PG/ML 183-986 N FOLIC [id number] 08:05:00 Test Item Value Reference Range Interpretation Comments FOLIC ACID (test code = FOL) 7.78 NG/ML 3.10-17.50 N LIPID PROFILE (CORONARY RISK)2020-10-28 07:42:00 Test Item Value Reference Range Interpretation Comments TRIGLYCERIDES (test 87 MG/DL 0-150 N Results may be code = TRIG) depressed if shi harden is takingN-Acetylc ystei ne (NAC) and Metamizole (Dipyrone). CHOLESTEROL (test code 126 MG/DL 133-200 L = CHOL) CHOLESTEROL/HDL RATIO 2.57 RATIO See_Comment REFER ENCE RANGE: (test code = CHOLHDL) JANETT CASE FEMALE 1/2 AVG RISK 3.4 3 3.27 AVG RISK 4.9 7 4.44 2 X AVG RISK 9.5 5 7.05 3 X AVG RISK 23.3 9 11.04 [Autom ated message] The sy stem which generated this result transmit octaviano reference range : 0-. The reference r gulshan was not used to interpret this result as normal/abnormal . HDL CHOLESTEROL (test 49 MG/DL 40-59 N Result s maybe code = HDL) depressed if shi harden is taking Metamizole(Dipy david) . NON-HDL CHOLESTEROL 77 mg/dL <130 Patients with CHD or (test code = NHDL) CHD risk LDL: <70 mg/dL non HDL: <100 mg/dLPatie nts with 2+ risk fa ctors LDL: <130 mg/dL nonHDL: <160 mg/dLPatie nts with 0-1 risk factors LDL: <160 mg/dL nonHDL: <190 m g/dL LIPOPROTEIN LDL (test 60 MG/DL 0-129 N code = LDL) LDL/HDL (test code = 1.22 Ratio See_Comment L LDL/HDL RISK LDL/HDL) ASSESSMENT1.47 One-half averag e3.22 Average5.0 3 Two times average6.[address] rage [Automated mess age] The system yuilop SL generated this result transmit octaviano reference range : 1.48-3.22 Avg. The reference range was not used to interpret this result as normal/abnormal . GLYCOSYLATED HEMOGLOBIN (HA1C)2020-10-28 07:37:00 Test Item Value Reference Range Interpretation Comments GLYCOSYLATED HEMOGLOBIN (HA1C) 7.3 % IS-A1C 4.5-5.6 H (test code = GLYHGB) ESTIMATED AVERAGE [id number] 07:37:00 Test Item Value Reference Range Interpretation Comments ESTIMATED AVERAGE GLUCOSE (test 163 MG/DLest code = EAG) CBC W/AUTO [id number] 07:29:00 Test Item Value Reference Range Interpretation Comments WHITE BLOOD CELL (test code = 7.2 K/mm3 4.1-12.1 N WBC) RED BLOOD CELL (test code = RBC) 3.86 M/mm3 3.8-5.5 N HEMOGLOBIN (test code = HGB) 11.0 G/DL 10.6-15.8 N HEMATOCRIT (test code = HCT) 37.1 % 31.8-47.4 N MEAN CELL VOLUME (test code = 96.1 fL 80.1-101.1 N MCV) MEAN CELL HGB (test code = MCH) 28.5 pg 25.3-35.3 N MEAN CELL HGB CONCETRATION (test 29.6 G/DL 32.7-35.1 L code = MCHC) RED CELL DISTRIBUTION WIDTH 14.6 % 12.2-16.4 N (test code = RDW) RED CELL DISTRIBUTION WIDTH 52.0 fL 36.4-46.3 H (test code = RDW-SD) PLATELET COUNT (test code = PLT) 206 K/mm3 155-337 N MEAN PLATELET VOLUME (test code 11.7 fL 6.8-11.2 H = MPV) GRANULOCYTE % (test code = GR%) 69.5 % 37.8-82.6 N IMMATURE GRANULOCYTE % (test 0.7 % 0.0-2.0 N code = IG%) LYMPHOCYTE % (test code = LY%) 21.8 % 14.1-45.4 N MONOCYTE % (test code = MO%) 5.6 % 2.5-11.7 N EOSINOPHIL % (test code = EO%) 2.1 % 0.0-6.2 N BASOPHIL % (test code = BA%) 0.3 % 0.0-2.1 N NUCLEATED RBC % (test code = 0.0 /100WBC% 0.0-1.0 N NRBC%) GRANULOCYTE # (test code = GR#) 4.97 k/mm3 2.0-13.7 N IMMATURE GRANULOCYTE # (test 0.05 K/mm3 0.00-0.03 H code = IG#) LYMPHOCYTE # (test code = LY#) 1.56 K/mm3 0.6-3.8 N MONOCYTE # (test code = MO#) 0.40 K/mm3 0.11-0.59 N EOSINOPHIL # (test code = EO#) 0.15 K/mm3 0.0-0.4 N BASOPHIL # (test code = BA#) 0.02 K/mm3 0.0-0.1 N NUCLEATED RBC # (test code = 0.00 K/mm3 0.0-0.05 N NRBC#) SED [id number] 07:29:00 Test Item Value Reference Range Interpretation Comments SED RATE (test code = SEDW) 23 mm/hr 0-20 H COMPREHENSIVE METABOLIC [id number] 07:22:00 Test Item Value Reference Range Interpretation Comments SODIUM (test code = 140.0 mmol/L 133-144 N NA) POTASSIUM (test code 3.7 mmol/L 3.5-5.1 N = K) CHLORIDE (test code 108 mmol/L 95-105 H = CL) CARBON DIOXIDE (test 24 mmol/L 21-32 N code = CO2) ANION GAP (test code 8.0 GAP calc 4.0-15.0 N = GAP) GLUCOSE (test code = 147 MG/DL 70-110 H GLU) BLOOD UREA NITROGEN 17 MG/DL 7-18 N (test code = BUN) GLOMERULAR 102 estGFR >60 The estimated FILTRATION RATE glomerular (test code = GFR) filtration rate is computed usingpatient ra ce, age, sex, and s lyndsay creatinine. If any of theneeded da ta elements are mi ssing the Laboratory can notcompute an estimation of t he glomerular filtration rate .The GFR value units = ml/min/1.73 met er squared. EstimatedGFR va lues above 60 should be interpreted as >60, not anexact number.--- DRUG DOSAGE ALERT -- - Drug dosage adjustments uti lize different calculationpara meter s. CREATININE (test 0.63 MG/DL 0.55-1.30 N Results may be code = CREAT) depressed if p atient is takingN-Acetylc ystei ne (NAC) and Metamizole (Dipyrone). TOTAL PROTEIN (test 6.6 G/DL 6.4-8.2 N code = PROT) ALBUMIN (test code = 3.0 G/DL 3.4-5.0 L ALB) ALBUMIN/GLOBULIN 0.8 RATIO 1.2-2.2 L RATIO (test code = A/G) CALCIUM (test code = 8.2 MG/DL 8.5-10.1 L CA) BILIRUBIN TOTAL 0.11 MG/DL 0.00-1.00 N (test code = BILT) BILIRUBIN DIRECT < 0.10 MG/DL 0.00-0.30 N (test code = BILD) BILIRUBIN INDIRECT CALC THOMAS MG/DL 0.2-1.3 L (test code = BILIND) SGOT/AST (test code 15 Unit/L 15-37 N = AST) SGPT/ALT (test code 14 Unit/L 12-78 N = ALT) ALKALINE PHOSPHATASE 86 Unit/L 45-117 N TOTAL (test code = ALKP) INDEX HEMOLYSIS 1 NORMAL <10 See_Comment [Automated message] (test code = MG Index/DL The system yuilop SL HEMINDEX) generated this result transmit octaviano reference range : 1 NORMAL. The reference range was not used to interpret this result as normal/abnormal . INDEX ICTERIC (test 1 NORMAL <2 MG See_Comment [Auto mated message] code = ICTINDEX) Index/DL The system which generated this result transmit octaviano reference range : 1 NORMAL. The reference range was not used to interpret this result as normal/abnormal . INDEX LIPEMIA (test 1 NORMAL <50 See_Comment [Automa octaviano message] code = LIPINDEX) MG Index/DL The system which generated this result transmit octaviano reference range : 1 NORMAL. The reference range was not used to interpret this result as normal/abnormal . [id number] 07:22:00 Test Item Value Reference Range Interpretation Comments PHOSPHOROUS (test code = PHOS) 4.5 MG/DL 2.5-4.9 N [id number] 07:22:00 Test Item Value Reference Range Interpretation Comments MAGNESIUM (test code = MAG) 2.4 MG/DL 1.6-2.6 N THYROID STIMULATING [id number] 07:22:00 Test Item Value Reference Range Interpretation Comments THYROID STIMULATING HORMONE 1.190 mc IU/ML 0.340-4.820 N (test code = TSH) COMPREHENSIVE METABOLIC [id number] 07:10:00 Test Item Value Reference Range Interpretation Comments SODIUM (test code = 140.0 mmol/L 133-144 N NA) POTASSIUM (test code 3.7 mmol/L 3.5-5.1 N = K) CHLORIDE (test code 108 mmol/L 95-105 H = CL) CARBON DIOXIDE (test 24 mmol/L 21-32 N code = CO2) ANION GAP (test code 8.0 GAP calc 4.0-15.0 N = GAP) GLUCOSE (test code = 147 MG/DL 70-110 H GLU) BLOOD UREA NITROGEN 17 MG/DL 7-18 N (test code = BUN) CREATININE (test MG/DL 0.55-1.30 code = CREAT) TOTAL PROTEIN (test G/DL 6.4-8.2 code = PROT) ALBUMIN (test code = 3.0 G/DL 3.4-5.0 L ALB) ALBUMIN/GLOBULIN RATIO 1.2-2.2 RATIO (test code = A/G) CALCIUM (test code = 8.2 MG/DL 8.5-10.1 L CA) BILIRUBIN TOTAL MG/DL 0.00-1.00 (test code = BILT) BILIRUBIN DIRECT MG/DL 0.00-0.30 (test code = BILD) BILIRUBIN INDIRECT MG/DL 0.2-1.3 (test code = BILIND) SGOT/AST (test code Unit/L 15-37 = AST) SGPT/ALT (test code Unit/L 12-78 = ALT) ALKALINE PHOSPHATASE Unit/L 45-117 TOTAL (test code = ALKP) INDEX HEMOLYSIS 1 NORMAL <10 MG See_Comment [Automat ed (test code = Index/DL message] The sy stem HEMINDEX) which generated this result transmitted reference range : 1 NORMAL. The reference range was not used to interpret this result as normal/abnormal . INDEX ICTERIC (test 1 NORMAL <2 MG See_Comment [Auto mated code = ICTINDEX) Index/DL message] Th e system which generated this result transmitted reference range : 1 NORMAL. The reference range was not used to interpret this result as normal/abnormal . INDEX LIPEMIA (test 1 NORMAL <50 MG See_Comment [Aut omated code = LIPINDEX) Index/DL message] e system which generated this result transmitted reference range : 1 NORMAL. The reference range was not used to interpret this result as normal/abnormal . [id number] 07:10:00 Test Item Value Reference Range Interpretation Comments PHOSPHOROUS (test code = PHOS) MG/DL 2.5-4.9 [id number] 07:10:00 Test Item Value Reference Range Interpretation Comments MAGNESIUM (test code = MAG) 2.4 MG/DL 1.6-2.6 N THYROID STIMULATING [id number] 07:10:00 Test Item Value Reference Range Interpretation Comments THYROID STIMULATING HORMONE (test mc IU/ML 0.340-4.820 code = TSH) CBC W/AUTO [id number] 06:44:00 Test Item Value Reference Range Interpretation Comments WHITE BLOOD CELL (test code = 7.2 K/mm3 4.1-12.1 N WBC) RED BLOOD CELL (test code = RBC) 3.86 M/mm3 3.8-5.5 N HEMOGLOBIN (test code = HGB) 11.0 G/DL 10.6-15.8 N HEMATOCRIT (test code = HCT) 37.1 % 31.8-47.4 N MEAN CELL VOLUME (test code = 96.1 fL 80.1-101.1 N MCV) MEAN CELL HGB (test code = MCH) 28.5 pg 25.3-35.3 N MEAN CELL HGB CONCETRATION (test 29.6 G/DL 32.7-35.1 L code = MCHC) RED CELL DISTRIBUTION WIDTH 14.6 % 12.2-16.4 N (test code = RDW) RED CELL DISTRIBUTION WIDTH 52.0 fL 36.4-46.3 H (test code = RDW-SD) PLATELET COUNT (test code = PLT) 206 K/mm3 155-337 N MEAN PLATELET VOLUME (test code 11.7 fL 6.8-11.2 H = MPV) GRANULOCYTE % (test code = GR%) 69.5 % 37.8-82.6 N IMMATURE GRANULOCYTE % (test 0.7 % 0.0-2.0 N code = IG%) LYMPHOCYTE % (test code = LY%) 21.8 % 14.1-45.4 N MONOCYTE % (test code = MO%) 5.6 % 2.5-11.7 N EOSINOPHIL % (test code = EO%) 2.1 % 0.0-6.2 N BASOPHIL % (test code = BA%) 0.3 % 0.0-2.1 N NUCLEATED RBC % (test code = 0.0 /100WBC% 0.0-1.0 N NRBC%) GRANULOCYTE # (test code = GR#) 4.97 k/mm3 2.0-13.7 N IMMATURE GRANULOCYTE # (test 0.05 K/mm3 0.00-0.03 H code = IG#) LYMPHOCYTE # (test code = LY#) 1.56 K/mm3 0.6-3.8 N MONOCYTE # (test code = MO#) 0.40 K/mm3 0.11-0.59 N EOSINOPHIL # (test code = EO#) 0.15 K/mm3 0.0-0.4 N BASOPHIL # (test code = BA#) 0.02 K/mm3 0.0-0.1 N NUCLEATED RBC # (test code = 0.00 K/mm3 0.0-0.05 N NRBC#) SED [id number] 06:44:00 Test Item Value Reference Range Interpretation Comments SED RATE (test code = SEDW) mm/hr 0-20 PT AND [id number] 06:36:00 Test Item Value Reference Interpretation Comments Range PT PATIENT (test 12.5 SECONDS 9.4-12.5 N code = PTP) INTERNATIONAL 1.10 INR 0.88-1.13 N NORMAL RATIO (test Unit --------- code = INR) ---------Therap eutic range for INR i s dependent upon the situation.2.0-3 .0 Prophylaxis / v enous thromboembolism , Treatment of DVT, Acute myocardia l infarction stro ke prevention, Systemic emboli sm prevention in fibrillation3.0 -4.5 AMI recurrence prev ention, Systemic emboli sm prevention in p rosthetic heart 3.0-5.4 A NM mortality reduc tion THROMBOPLASTIN TIME 28.3 SECONDS 24-37.7 N THERAPEU TIC RANGE FOR PARTIAL (test code UNFRACTIO NATED HEPARIN = = PTT) 50.5-83.6 SEC T his test is not recommen ded to monitor low molecularweight heparin or danaparoid. Order LMWH test COLLECTION THROUGH LINES THAT HAVE BEEN PREVIOUSLY FLUS HEDWITH HEPARIN SHOULD BE AVOIDED DUE TO POSSIBLE HEPARINCONTAMIN ATION - CT ANGIO [id number] 23:36:00 [facility] 1976 Sex: F Name: GIOVANNY HARRISON [facility] : 1976Age/S: 44 / F [address] Unit #: [id number] Loc: [place] [address] Phys: Lisa Amaya MD Acct: [id number] Dis Date: Status: REG ER PHONE#: [phone] Exam Date: 10/27/2020 2338 FAX #: Reason:left side weakness EXAMS: CPT: [id number] CT ANGIO NECK [address] EXAM: - CT ANGIO HEAD, - CT ANGIO NECK LOCATION: H57 HISTORY: left side weakness TECHNIQUE: CTA head: Axial CT images were obtained from the skullbase to the vertex after intravenous contrast utilizing CTA protocol. Coronal and sagittal maximum intensity projection images are provided. CTA neck: Axial CT images were obtained from the aortic arch to the skull base after intravenous contrast utilizing CTA protocol. Coronal and sagittal maximum intensity projection images are provided. This examwas performed according to our departmental dose- optimization program, which includes automated exposure control, adjustment of the mA and/or kV according to patient size and/or use of iterative reconstruction technique COMPARISON: None available time of interpretation. FINDINGS: Exam is limited by severe venous contamination. For the purposes of this dictation, hemodynamically significant stenosis is characterized as greater than 50%. CTA head: The petrous, cavernous, and clinoid internal carotid ar teries do not demonstrate hemodynamically significant stenoses. The anterior andmiddle cerebral arteries do not demonstrate hemodynamically significant stenoses. Quan[place] of both vertebral arteries into the basilar. Basilar artery and posterior cerebral arteries are do not demonstrate hemodynamically significant stenoses. No aneurys m is seen. The dural venous sinuses are patent. PAGE 1 Signed Report (CONTINUED) Name[facility] : 1976 Age/S: 44 / F [id number] Unit #: [id number] Loc: [place] [address] Phys: Lisa Amaya MD Acct: [id number] Dis Date: Status: REG ER PHONE #: [phone] Exam Date: 10/27/20202329 FAX #: Reason: left side weakness EXAMS: CPT: [id number] CT ANGIO NECK [address] <Continued> CTA neck: The origins of the great vessels from the aortic arch do not demonstrate hemodynamically significant stenoses. The bilateral common carotid arteries and bulbs are without hemodynamically significant stenosis. The internal carotid arteries do not demonstrate hemodynamically significant stenosis. No pseudoaneurysm or dissection. The vertebral arteries are codominant. No incidental soft tissue findings. IMPRESSION: 1. No hemodynamically significant stenoses of the cervical carotid or vertebral arteries. 2. Evaluation of the intracranial vessels is limited by extensive venous contamination. No obvious large vessel occlusion is identified. MRA may be considered for further evaluation if clinically indicated. 3. No aneurysm or dissection. Findings were communicated to Lisa Amaya MD by telephone on 10/27/2020 11:36 PM. at 2336 Reported and signed by: Jaya Alcocer M.D. CC: Lisa Amaya MD Technologist:Hawa Rubio, RT (R)(CT); ... CTDI: DLP: Trnscb Date/Time: 10/27/2020 (2335) [email or web address] Orig Print D/T: S: 10/27/2020 (8557) PAGE 2 Signed Report- CT ANGIO [id number] 23:36:00 [facility] : 1976 Sex: F Name: GIOVANNY HARRISON [facility] : 1976Age/S: 44 / F [id number] Unit #: [id number] Loc: [place] [address] Phys: Lisa Amaya MD Acct: [id number] Dis Date: Status: REG ER PHONE#: [phone] Exam Date: 10/27/20202329 FAX #: Reason:left side weakness EXAMS: CPT: [id number] CT ANGIO HEAD [address] EXAM: - CT ANGIO HEAD, - CT ANGIO NECK LOCATION: H57 HISTORY: left side weakness TECHNIQUE: CTA head: Axial CT images were obtained from the skullbase to the vertex after intravenous contrast utilizing CTA protocol. Coronal and sagittal maximum intensity projection images are provided. CTA neck: Axial CT images were obtained from the aortic arch to the skull base after intravenous contrast utilizing CTA protocol. Coronal and sagittal maximum intensity projection images are provided. This examwas performed according to our departmental dose- optimization program, which includes automated exposure control, adjustment of the mA and/or kV according to patient size and/or use of iterative reconstruction technique COMPARISON: None available time of interpretation. FINDINGS: Exam is limited by severe venous contamination. For the purposes of this dictation, hemodynamically significant stenosis is characterized as greater than 50%. CTA head: The petrous, cavernous, and clinoid internal carotid ar teries do not demonstrate hemodynamically significant stenoses. The anterior andmiddle cerebral arteries do not demonstrate hemodynamically significant stenoses. Quanah of both vertebral arteries into the basilar. Basilar artery and posterior cerebral arteries are do not demonstrate hemodynamically significant stenoses. No aneurys m is seen. The dural venous sinuses are patent. PAGE 1 Signed Report (CONTINUED) Name: GIOVANNY HARRISON [place] : 1976 Age/S: 44 / F [address] Unit #: [id number] Loc: [place] [address] Phys: Lisa Amaya MD Acct: [id number] Dis Date: Status: REG ER PHONE #: [phone] Exam Date: 10/27/20202329 FAX #: Reason: left side weakness EXAMS: CPT: [id number] CT ANGIO HEAD [address] <Continued> CTA neck: The origins of the great vessels from the aortic arch do not demonstrate hemodynamically significant stenoses. The bilateral common carotid arteries and bulbs are without hemodynamically significant stenosis. The internal carotid arteries do not demonstrate hemodynamically significant stenosis. No pseudoaneurysm or dissection. The vertebral arteries are codominant. No incidental soft tissue findings. IMPRESSION: 1. No hemodynamically significant stenoses of the cervical carotid or vertebral arteries. 2. Evaluation of the intracranial vessels is limited by extensive venous contamination. No obvious large vessel occlusion is identified. MRA may be considered for further evaluation if clinically indicated. 3. No aneurysm or dissection. Findings were communicated to Lisa Amaya MD by telephone on 10/27/2020 11:36 PM. at 2336 Reported and signed by: Jaya Alcocer M.D. CC: Lisa Amaya MD Technologist:Le Castaneda, RT(R)(CT) CTDI: DLP: Trnscb Date/Time: 10/27/2020 (2336) [email or web address] Orig Print D/T: S: 10/27/2020 (4422) PAGE 2 Signed ReportCOVID 19 INHOUSE [id number] 23:11:00 Test Item Value Reference Range Interpretation Comments COVID 19 INHOUSE AG NEGATIVE Negative Per andrew facturer, (test code = negative result s should [id number]) be treated aspr esumptive and, if inconsi stent with clinical signs andsymptoms or necessary for patient man agement, should betested with an alternative mol ecular assay. Negative resultsdo not preclude SA RS-CoV-2 infection and s hould not be usedas the s ole basis for patient man agement decisions. Neg ative results should be considered in t he context of apatient's r ecent exposures, hist ory, presence of cli nicalsigns and symptoms co nsistent with COVID-19. BASIC METABOLIC [id number] 22:48:00 Test Item Value Reference Range Interpretation Comments SODIUM (test code = NA) 142 mmol/L 134-147 N POTASSIUM (test code = 3.5 mmol/L 3.4-5.0 N K) CHLORIDE (test code = 109 mmol/L 100-108 H CL) CARBON DIOXIDE (test 26 mmol/L 21-32 N code = CO2) ANION GAP (test code = 7.0 GAP calc 4.0-15.0 N GAP) GLUCOSE (test code = 188 MG/DL 70-110 H GLU) BLOOD UREA NITROGEN 18 MG/DL 7-18 N (test code = BUN) GLOMERULAR FILTRATION >=60 max estimate >60 RATE (test code = GFR) estGFR CREATININE (test code = 0.8 MG/DL 0.6-1.0 N CREAT) CALCIUM (test code = CA) 8.5 MG/DL 8.5-10.1 N Completed by Nursing: [id number] 22:48:00 Test Item Value Reference Range Interpretation Comments TROPONIN-I (test < 0.015 NG/ML 0.000-0.045 N Negative: </= 0.045 code = TROPI) Positive: >/= 0.046 Correlation wit h serial results, other cardiac markers, and cl inical findings is nec essary to determine the c linical significance of this result. Quantit ative results using d ifferent methodologies s hould not be compared to one another as nume rical results may ruth yby method. Completed by Nursing: NOPROTHROMBIN [id number] 22:41:00 Test Item Value Reference Range Interpretation Comments PT PATIENT (test code = PTP) 11.2 SECONDS 9.3-12.9 N INTERNATIONAL NORMAL RATIO 1.00 INR Unit 0.8-1.2 N (test code = INR) THROMBOPLASTIN TIME [id number] 22:41:00 Test Item Value Reference Range Interpretation Comments THROMBOPLASTIN TIME PARTIAL 32.7 SECONDS 26-35 N (test code = PTT) GLUCOSE BEDSIDE [id number] 22:18:00 Test Item Value Reference Range Interpretation Comments GLUCOSE BEDSIDE TESTING (test code 190 mg/dL 70-110 H = GLUBED) CBC W/O [id number] 22:18:00 Test Item Value Reference Range Interpretation Comments WHITE BLOOD CELL (test code = WBC) 7.9 K/mm3 3.5-11.0 N RED BLOOD CELL (test code = RBC) 4.01 M/mm3 4.70-6.10 L HEMOGLOBIN (test code = HGB) 11.7 G/DL 10.4-14.9 N HEMATOCRIT (test code = HCT) 38.6 % 31.5-44.1 N MEAN CELL VOLUME (test code = MCV) 96.3 Fl 84.5-98.6 N MEAN CELL HGB (test code = MCH) 29.2 pg 27.0-34.2 N MEAN CELL HGB CONCETRATION (test 30.3 G/DL 31.5-34.0 L code = MCHC) RED CELL DISTRIBUTION WIDTH (test 14.5 SD 11.5-14.5 N code = RDW) PLATELET COUNT (test code = PLT) 219 K/mm3 150-450 N MEAN PLATELET VOLUME (test code = 11.20 fL 7.0-10.5 H MPV) - CT HEAD/BRAIN W/O [id number] 22:14:00 [facility] 1976 Sex: F Name: GIOVANNY HARRISON [place] : 1976Age/S: 44 / F [id number] Unit #: [id number] Loc: [place] [address] Phys: Lisa Amaya MD Acct: [id number] Dis Date: Status: PRE ER PHONE#: [phone] Exam Date: 10/27/20202208 FAX #: Reason:code stroke EXAMS: CPT: [id number] CT HEAD/BRAIN W/O CONT 12313 EXAM: CT Head without contrast Location: A1 HISTORY: Possible stroke, code stroke COMPARISON: None available. TECHNIQUE: Multiple transaxial images of the brain were obtained without intravenous contrast. Images were reformatted to create coronal and sagittal reconstructions. One or more of the following dose reduction techniqueswere used: Automated exposure control, adjustment of the mA and/or kV according to patient size, and/or utilization of iterative reconstruction technique. DLP: 804 mGy-cm. FINDINGS: There is no acute intracranial hemorrhage. There is nomass, mass effect, midline shift or extra-axial fluid collection. Brain parenchymal volume and ventricular caliber are within normal limits. Wan-white differentiation is maintained. There is no evidence for acute major vessel infarct. Paranasal sinuses, mastoid air cells and visualized orbital contents are within normal limits. Osseous structures are within normal limits. IMPRESSION: No acute intracranial abnormality. No acute hemorrhage, mass lesion or infarct. Preliminary findings were given to Dr. Amaya at 2211 hours on 10/27/2020 FOR INTERNAL CODING PURPOSES ONLY RESULT CODE: CVR PAGE 1 Signed Report (CONTINUED) Name: GIOVANNY HARRISON [place] : 1976 Age/S: 44 / F [id number] Unit #: [id number] Loc: [place] [address] P hys: Lisa Amaya MD Acct: [id number] Dis Date: Status: PRE ER PHONE #: [phone] Exam Date:10/27/20202208 FAX #: Reason: code stroke EXAMS: CPT: [id number] CT HEAD/BRAIN W/O CONT 58341 <Continued> at 2214 Reported and signed by: Samaria Ospina CC: Lisa Amaya MD Technologist:Hawa Rubio RT(R)(CT); ... CTDI: DLP: Trnscb Date/Time: 10/27/2020 (2213) t.NURYSRDaryAL7 Orig Print D/T: S: 10/27/2020 () PAGE 2 Signed ReportSURGICAL [id number] 09:03:00 Test Item Value Reference Range Interpretation Comments SURGICAL SPECIMENS (test code = SURG) --------RUN DATE: 05/07/20 [facility] - LAB PAGE 1 RUN TIME: 902 Specimen Inquiry RUN USER: INTERFACE --------PATIENT: GIOVANNY HARRISON LOC: EMETERIO U #: [id number] AGE/SX: 44/F ROOM: RE05/02/20[facility] DR: Giuliano Abdullahi MD : 75 BED: DIS: STATUS: [facility] TLOC: -------- SPEC #: [id number] RECD: 05/02/20 STATUS: JACQUELINE REJonathan #: [id number] INA: 05/02/[address] [facility] [address]: Giuliano Abdullahi MD ENTERED: 05/02/20 SP TYPE: SURG OTHR DR: Candace Dhaliwal COMPUTERIZED TABLE CUTTER ORDERED: PATHGM4/2, PATH SPEC, H E STAIN/2 HISTOLOGY: TISSUE ID BLK PCS LIBRA LEV / PROCEDURE DISPOSITION ____ ___ ___ ___ ___ ANTRUM BIOPSY A 1 3 GE JUNCTION B 1 3 TISSUES: A. ANTRUM BIOPSY - Gastric Antrum Bx B. GASTRO-ESOPHAGEAL JUNCTION BIOPSY - GE Junction Bx ADDITIONAL TESTS ASR DISCLAIMER FOR IMMUNOHISTOCHEMISTRY: This test was developed and its performance characteristics determined by the [facility]. It has not been cleared or approved by the US Food and Drug Administration. The FDA has determined that such clearance or approval is not necessary. The test is used for clinical purposes. It should not be regarded as investigational or for research. [facility] is certified under CLIA-88 (Clinical Laboratory Improvement Amendment of 1988) as qualified to perform high-complexity clinical laboratory testing. All controls show appropriate reactivity. CLINICAL HISTORY GERD FINAL DIAGNOSIS A. STOMACH, ANTRUM, BIOPSY: - REACTIVE GASTROPATHY - NEGATIVE FOR HELICOBACTER PYLORI BY IMMUNOHISTOCHEMISTRY - NO INTESTINAL METAPLASIA, DYSPLASIA, OR MALIGNANCY IS IDENTIFIED B. GASTROESOPHAGEAL JUNCTION, BIOPSY: - SQUAMOCOLUMNAR MUCOSA WITH REFLUX ESOPHAGITIS - NO INTESTINAL METAPLASIA, DYSPLASIA, OR MALIGNANCY IS IDENTIFIED CPT: 41767 x2, 89081 CONTINUED ON NEXT PAGE --------RUN DATE: 05/07/20 [facility] - LAB PAGE 2 RUN TIME: 902 Specimen Inquiry RUN USER: INTERFACE --------SPEC #: [id number] PATIENT: GIOVANNY HARRISON #[id number] (Continued) GROSS DESCRIPTION Received are two containers of formalin labeled with the patient's name, medical record number, and specimen source. A. Received labeled "gastric antrum biopsy" are two mcpherson soft tissue biopsies which measure 0.2 cm and 0.4 cm in greatest dimension; they are submitted in toto in "A". B. Received labeled "GE junction biopsy" are two mcpherson soft tissue biopsies which measure 0.1 cm and 0.4 cm in greatest dimension; they are submitted in toto in "B". MD/ph MICROSCOPIC DESCRIPTION Performed. Signed SIGNATURE ON FILE Angeles Miller MD 05/07/20 0903 -------- END OF REPORT [id number] 15:00:00 Test Item Value Reference Range Interpretation Comments GLUBED (test code = GLUBED) 148 MG/DL 70-105 H COVID 19 Asymptomatic IH [id number] 13:12:00 Test Item Value Reference Range Interpretation [...] clinical signs and symptomsconsist ent with COVID-19. VJDZMMIPDI6731-72-08 18:47:001.7[facility] QyygkrhCXOPMVJIQM5508-82-04 18:47:000.3 [facility] GsazuecVFJRFAPNGP5243-12-71 18:47:0070.8[facility]ann[facility]OLOGY 2018-09-13 18:47:0032.7[facility] OtdgqwdTNUUIJPOLA0228-41-27 18:47:0039.9[facility] NbfvhgyRPNBUCPWRF7050-08-96 18:47:0087.0[facility] SndtgprTZLFBGXXYO6848-94-03 18:47:00 Test Item Value Reference Range Interpretation Comments MCH (test code = MCH) 28.5 pg 27.0-31.0 [facility] NbibiedQHZTLOMENZ7410-86-75 18:47:0014.8[facility]annHEMATOLOGY 2018-09-13 18:47:0013.0[facility] IgsoyexUABGNPHDKA2503-38-37 18:47:95014Dtwvrsgf PgouuvlASKLONMNXJ2792-48-62 18:47:0010.2[facility] ErghueiHPOMJDIYQY1780-73-61 18:47:004.59[facility] EworqqjBPMSEQOHCK3136-70-44 18:47:007.4[facility] SPECIAL MVDDXDVAA6209-33-26 18:47:006.2[facility] HermannCHEM FCEND7643-17-78 18:47:05668Rtrgdejy HermannCHEM EHGWW9022-93-53 18:47:003.8[facility] HermannCHEM HROUP3303-46-49 18:47:00 Test Item Value Reference Range Interpretation Comments A/G Ratio (test code = A/G Ratio) 1.0 1 0.7-1.6 [facility]annCHEM [id number] 18:47:000.3[facility] HermannCHEM PANEL 2018-09-13 18:47:0010.8[facility] HermannCHEM WEKWB8671-20-98 18:47:00 Test Item Value Reference Range Interpretation Comments B/C Ratio (test code = B/C Ratio) 23 1 6-25 [facility]annCHEM IUQUS6443-85-98 18:47:003.8[facility] HermannCHEM PANEL 2018-09-13 18:47:13673Vwxxpwuh HermannCHEM SZVHP8558-18-95 18:47:50148Iwzdicyf HermannCHEM FPWIE5731-86-71 18:47:0023[facility] HermannCHEM DUAHC3534-41-44 18:47:0088[facility]annCHEM YADET4103-55-79 18:47:0021[facility] HermannCHEM DBWED5570-63-51 18:47:0028[facility]annCHEM XUBXQ7768-56-95 18:47:008.8 [facility]ann[facility]M KJPLC9378-76-09 18:47:003.7[facility] HermannCHEM PANEL 2018-09-13 18:47:007.5[facility]annCHEM UGTHX1483-83-16 18:47:0084[facility]annCHEM CPUZV9534-42-42 18:47:000.74[facility] HermannCHEM NQVTJ7817-38-53 18:47:0017[facility] GcucvjiFHPIMBFEZH7274-93-85 18:47:000.1[facility] QKUTIJJOXB1239-28-22 18:47:004.4[facility] KufglrdXOGSJOXNUU1802-47-47 18:47:001.6 [facility] QnizlfhTHHNNJLMTR6648-48-19 18:47:000.2[facility] HermannHEMATOLOGY 2018-09-13 18:47:0023.0[facility] CejdnijJELDRJYGRQ7176-05-97 18:47:005.3[facility] JimmyRAD, CHEST, 2 MXTGY1844-02-32 15:49:00Reason for exam:->coughShould this be performed at the bedside?->NoFINAL REPORT Chest, PA and lateral. History: Cough. Comparison: 12/07/2017. Discussion: Mild cardiomegaly. The lungs are clear without evidence of consolidation or effusion. There are no acute osseous abnormalities. The soft tissues are unremarkable. IMPRESSION: No acute cardiopulmonary abnormality. Signed: Joseph Ford MDReport Verified Date/Time: 08/21/2018 15:49:59 [facility] Electronically signed by: JOSEPH FORD M.D. on 03:49 FGNDCRCPTFKDVX6192-01-35 10:53:0011.8[facility] HermannELECTROLYTES 2018-06-14 10:53:06763Ngwnvunr AkjsuvyXLWTVRWTCYGS5134-95-16 10:53:003.8[facility] HuerqylAHVGATLHTZCD5819-41-40 10:53:77505Txpttmww OswvfmrUJZRNLUEBQWE6773-80-81 10:53:008.1[facility] YxshdbbGYTXBFPYLDER7417-94-79 10:53:000.51[facility] HYSVZNRKSEXJ3476-11-82 10:53:28250Obclofeb UiwzinbPICSTHYUHDAJ6172-26-01 10:53:0028[facility] SnuzpozTYABYXNZIJGQ2333-64-57 10:53:0011[facility] UUWDOBCNBGRL2248-50-95 10:53:52224Pblgzdvu OdohawyUAPDEMTJYY0720-37-46 10:53:00 1.1[facility] JdpwsggLZRBTJMNRS6182-11-65 10:53:005.5[facility] HermannHEMATOLOGY 2018-06-14 10:53:000.1[facility] MsxnrfeSBXHGXIIUV1082-33-72 10:53:000.3[facility] NnvqmquXVQZJCPJSR8959-91-63 10:53:0015.3[facility] EghevaiLPKNPSKCDC8939-20-03 10:53:0078.5[facility] OydxkumEAPXAFCPHM3308-53-82 10:53:001.2[facility] FCJEBDKJFS3203-73-80 10:53:004.3[facility] UjwasxtTLFBKNFKQC0356-10-29 10:53:000.7 [facility] PyubeanCWITZUSYEE0082-23-37 10:53:0032.5[facility] HermannHEMATOLOGY 2018-06-14 10:53:0015.1[facility] QrywjksVMGOJINPTO7660-63-88 10:53:88575Ibcjilzj LyujfsvZYIVOTLCVR3493-14-10 10:53:009.4[facility] IkzvtipUEETPVXFZQ4061-65-27 10:53:003.87[facility] SzmishrVGZLJFLPVU9707-19-80 10:53:0011.0[facility] JGSLDMNETJ0240-02-96 10:53:0087.6[facility] RinloloNEYONLKHQU6195-05-55 10:53:00 Test Item Value Reference Range Interpretation Comments MCH (test code = MCH) 28.5 pg 27.0-31.0 [facility] AiwuoguMMDSZMOSXN2601-24-01 10:53:0033.9[facility] HermannHEMATOLOGY 2018-06-14 10:53:007.0[facility] HermannCHEM RPZQT7872-73-16 11:52:0087[facility] HermannCHEM AABVI8565-15-06 11:52:23072Tnurgpmm HermannCHEM QNGVG8586-35-70 11:52:66293Hpxbueuu HermannCHEM GOCPN7406-43-48 11:52:83097Cnysunjg HermannCHEM PODYY4441-77-61 11:52:004.0[facility] HermannCHEM IICES4072-81-34 11:52:000.63 [facility]annCHEM YUBIW8775-22-03 11:52:0018[facility] HermannCHEM PANEL 2018-06-13 11:52:001.0[facility] HermannCHEM LCNKD6238-29-28 11:52:0029[facility] HermannCHEM SJBNU2454-99-03 11:52:007.5[facility] HermannCHEM AMYPQ0560-55-22 11:52:003.2[facility] HermannCHEM CLQIS7960-07-71 11:52:0025[facility] HermannCHEM LDXLJ6074-42-40 11:52:0013[facility] HermannCHEM ECUEL5788-44-14 11:52:53725 [facility]annCHEM OUKJW8132-56-25 11:52:008.3[facility] HermannCHEM PANEL 2018-06-13 11:52:00 Test Item Value Reference Range Interpretation Comments B/C Ratio (test code = B/C Ratio) 21 1 6-25 [facility]annCHEM PHRER8520-52-26 11:52:004.3[facility] HermannCHEM PANEL 2018-06-13 11:52:00 Test Item Value Reference Range Interpretation Comments A/G Ratio (test code = A/G Ratio) 0.7 1 0.7-1.6 [facility]annCHEM BFDYF2541-95-70 11:52:0014.0[facility] HermannHEMATOLOGY 2018-06-13 11:52:0012.6[facility] OeoikcxDMCGPUDCWO6510-69-64 11:52:0088.3[facility] UvlgxyqKEEWHPANJT6723-95-78 11:52:0032.8[facility] PbccwixQZXGPSKELT5280-06-72 11:52:00 Test Item Value Reference Range Interpretation Comments MCH (test code = MCH) 29.0 pg 27.0-31.0 [facility] HpnnvlnLBBBZCEEOH2082-15-63 11:52:004.34[facility] HermannHEMATOLOGY 2018-06-13 11:52:009.2[facility] FjxncjnUGATSQHJBB0634-72-46 11:52:0010.1[facility] RoutxhbVDFARBPWWJ2859-50-77 11:52:21968Rphjtspg GvclbugZSCYJHDXMA9433-09-84 11:52:0015.2[facility] LcvuggpFTGCGDHGXG0553-87-44 11:52:0038.3[facility] Jimmy JTUNWNGZMM0180-27-25 11:52:00 Test Item Value Reference Range Interpretation Comments PTT (test code = PTT) 37.5 s 22.9-35.8 [facility] TexasGvszfcsAQPALLBYPC1337-42-00 11:52:00 Test Item Value Reference Range Interpretation Comments PT (test code = PT) 15.4 s 12.0-14.7 [facility] LfmrjfeFBDMTJFRNY9574-45-96 11:52:00 Test Item Value Reference Range Interpretation Comments INR (test code = INR) 1.24 1 0.85-1.17 [facility] IxjyhnqAVSASOLQBO5517-92-50 11:52:000.2[facility] HermannHEMATOLOGY 2018-06-13 11:52:000.3[facility] WeixtynAREBNXANDC4135-65-73 11:52:003.7[facility] KwartqpWWKNMUYAQQ5841-82-25 11:52:0013.6[facility] UlceuusZOQCGXPSCK3984-54-59 11:52:007.6[facility] PfygtsmWYLRXZNCHR3503-37-79 11:52:001.2[facility] MONAERCPIK3276-19-45 11:52:000.3[facility] QodlytpYTJKUAXXZF4157-11-56 11:52:00 82.2[facility] BexbtyoMEPMZF2235-04-10 11:52:00 Test Item Value Reference Range Interpretation Comments CHD Risk (test code = CHD Risk) 2.88 1 3.90-5.80 [facility] TexasYkkfwpyCYMXYP0388-39-75 11:52:00 Test Item Value Reference Range Interpretation Comments VLDL (test code = VLDL) 18 1 [facility] YegukcyGWAVJU9147-88-09 11:52:0048[facility] RxoziweINZDTD2921-65-49 11:52:0072[facility] QwilosbIJJQPQ5177-17-47 11:52:0092[facility] HermannLIPIDS 2018-06-13 11:52:24634Smjtzsyv HermannSPECIAL HZDCORJAT9009-47-22 11:52:006.1 [facility]annURINE AND NXWRK5509-53-82 11:52:00Negative *NA*(06/13/18 5:52 AM) [facility] TILOX5402-27-65 11:52:00Moderate *ABN*(06/13/18 5:52 AM) [facility] HQHGK7107-49-83 11:52:00Negative (06/13/18 5:52 AM) [facility] KRGLM0037-68-96 11:52:001[facility] AND MUZTT3577-55-69 11:52:00Negative (06/13/18 5:52 AM)[facility] AND STOOL 2018-06-13 11:52:007[facility]annUR[facility] AND BHRPZ4045-53-97 11:52:00 Test Item Value Reference Range Interpretation Comments UA pH (test code = UA pH) 6.0 1 5.0-8.0 [facility] AND PJEAD0016-61-91 11:52:00Clear (06/13/18 5:52 AM)[facility] AND QKVKB6087-16-56 11:52:00Negative (06/13/18 5:52 AM)[facility] DHWYE1465-30-90 11:52:00Negative *NA*(06/13/18 5:52 AM)[facility] LJGQP3132-01-87 11:52:00 Test Item Value Reference Range Interpretation Comments UA Spec Grav (test code = UA Spec 1.019 1 Grav) [facility]] FOLATE, QQLHG2448-82-91 10:35:01 Test Item Value Reference Range Interpretation Comments Folate Level (test code = 2284-8) 14.1 ng/ml >=3.0 [facility]] VITAMIN D, 25-HYDROXY, LC/MS/GY0778-48-52 10:35:01 Test Item Value Reference Range Interpretation Comments Vitamin D, 25-OH, 17.5 ng/ml 30.0-100.0 Reference range is based Total (test code on recommen dations in the = Vitamin D, EndocrineSociet y Clinical 25-OH, Total) Practice Guide line (J Clin Endocrinol Wiykq2303;96:19 11-1930) [facility][H] Vit O1570-49-87 10:35:01 Test Item Value Reference Range Interpretation [...] and i ts performance characteristics determined by [employer]. It has not been cleared orappro mamie by the Food and Drug Administration. Performed At: [facility] [address] [id number] ra Latasha GARCIA Ph:[phone] [facility][H] Vitamin E Vyz1907-88-89 10:35:01 Test Item Value Reference Range Interpretation Comments Alpha-Tocoph 7.9 mg/L 7.0-25.1 aktrin (test code = Alpha-Tocoph katrin) Gamma-Tocoph 2.6 mg/L 0.5-5.5 Reference inter vals for alpha and katrin (test gamma-tocophero ldetermined from code = National Health and Nutrition Gamma-Tocoph ExaminationSurv ey, 9975-5128. katrin) Individuals wit h alpha-tocopherol levelsless than 5.0 mg/L are considered jammie min E deficient.This test was developed and its perform ance characteristics determined by [employer]. It has not been cleared orapproved by [facility] Food and Drug Administration. Performed At: [facility] [id number] [place], [place] [id number] Sanjai MD Ph:[phone] [facility]] CBC (INCLUDES DIFF/PLT)2018-01-06 10:09:01 Test Item Value Reference Range Interpretation Comments WBC (test code = 6690-2) 7.1 {K/CMM} 3.7-10.4 RBC (test code = 789-8) 4.30 {M/CMM} 4.20-5.40 Hgb (test code = 718-7) 12.3 g/dl 12.0-16.0 Hct (test code = 44973-2) 38.0 % 36.0-48.0 MCV (test code = 787-2) 88.4 fL 80.0-98.0 MCH (test code = 785-6) 28.5 pg 27.0-31.0 MCHC (test code = 786-4) 32.3 g/dl 32.0-36.0 RDW; Above High Threshold (test 15.9 % 11.5-14.5 code = 788-0) Platelet (test code = 29249-5) 222 {K/CMM} 133-450 Mean Platelet Volume; Above High 10.7 fL 7.4-10.4 Threshold (test code = 81599-9) [facility]] Hxptfrxiombo3921-37-54 10:09:01 Test Item Value Reference Range Interpretation Comments Segmented Neutrophils (test code 70.9 % 45.0-75.0 = 25514-7) Monocytes (test code = 49225-3) 4.2 % 2.0-12.0 Lymphocytes (test code = 96666-4) 22.0 % 20.0-40.0 Eosinophils (test code = 55464-6) 2.5 % 0.0-4.0 Basophils (test code = 706-2) 0.4 % 0.0-1.0 Segs-Bands # (test code = 5.0 {K/CMM} 1.5-8.1 47603-6) Lymphocytes # (test code = 1.6 {K/CMM} 1.0-5.5 00711-1) Monocytes # (test code = 39197-6) 0.3 {K/CMM} 0.0-0.8 Eosinophils # (test code = 0.2 {K/CMM} 0.0-0.5 53673-9) [facility]] PTH, INTACT (WITHOUT CALCIUM)2018-01-06 10:09:01 Test Item Value Reference Range Interpretation Comments Parathyroid Hormone Intact (test 64.9 pg/ml 18.4-80.1 code = 2731-8) [facility]] CMP W/SXTD1256-28-22 10:09:01 Test Item Value Reference Range Interpretation Comments Sodium Level 143 {mEq/l} 135-145 (test code = 2951-2) Potassium Level 4.6 {mEq/l} 3.5-5.1 (test code = 2823-3) Chloride Level 107 {mEq/l} 95-109 (test code = 5-0) Carbon Dioxide 30 {mEq/l} 24-32 (test code = 2027-9) AGAP (test code = 10.6 {mEq/l} 10.0-20.0 71781-8) Glucose Lvl; 108 mg/dl 70-99 Adult reference range Above High values reflect the Threshold (test clinical adri delinesof the code = 2345-7) [employer] [employer]. Creatinine Lvl 0.60 mg/dl 0.50-1.40 (test code = 2160-0) Blood Urea 12 mg/dl 7-22 Nitrogen (test code = 3094-0) BUN/Creatinine 20 6-25 Ratio (test code = 3097-3) Total Protein 7.3 g/dl 6.4-8.4 (test code = 2885-2) Albumin Lvl (test 3.6 g/dl 3.5-5.0 code = 1751-7) Globulin (test 3.7 g/dl 2.7-4.2 code = 72119-5) A/G Ratio (test 1.0 0.7-1.6 code = 1759-0) Calcium Level 8.7 mg/dl 8.5-10.5 Total (test code = 69803-0) ALT (test code = 27 u/l 0-65 3-4) AST (test code = 32 u/l 0-37 61561-4) Bili Total (test 0.4 mg/dl 0.2-1.3 code = 1974-2) Alk Phos (test 82 u/l 39-136 code = 1783-0) eGFR (test code = 113 The eGFR i s calculated 53208-7) {ML/MIN/1.7} using the CKD-E PI formula. In [...] s and those with seri ous co-morbid conditions.Wendi ents with extremes in mus analy mass or diet.The gavino a above are obtained fr om the National Kidney Disease Education Progr am(NKDEP) which gris quinteros recommends that when the eGFR is used in patientswith ex tremes of body mass index for purposes of dotty g dosing, the eGFR should be multiplied by t he estimated BMI. [facility]] FOLATE, [id number] 10:09:01 Test Item Value Reference Range Interpretation Comments Folate Level (test code = 2284-8) 11.3 ng/ml >=3.0 [facility]] IRON, [id number] 10:09:01 Test Item Value Reference Range Interpretation Comments Iron (test code = 2498-4) 59 ug/dL 30-160 [facility]] LIPID [id number] 10:09:01 Test Item Value Reference Range Interpretation Comments Chol (test code = 2093-3) 125 mg/dl <=199 Trig; Above High Threshold (test 154 mg/dl <=149 code = 2571-8) HDL Cholesterol; Below Low 36 mg/dl >=61 Threshold (test code = 2085-9) CHD Risk; Below Low Threshold (test 3.47 3.90-5.80 code = 46795-6) LDL (test code = 10541-3) 58 mg/dl <=99 VLDL (test code = VLDL) 31 [facility]] VITAMIN [id number] 10:09:01 Test Item Value Reference Range Interpretation Comments Vitamin B12 Level (test code = 655 pg/ml 254-1320 2132-9) [facility]] TSH, 3RD GENERATION W/REFLEX TO FT4 2018-01-06 10:09:01 Test Item Value Reference Range Interpretation Comments TSH (test code = 17129-2) 0.846 {uIU/ml} 0.360-3.740 [facility]] HEMOGLOBIN [id number] 10:09:01 Test Item Value Reference Range Interpretation Comments Hemoglobin A1c; Above High Threshold 6.4 % <=5.6 (test code = 4548-4) [facility]] VITAMIN D, 25-HYDROXY, LC/MS/[id number] 10:09:01 Test Item Value Reference Range Interpretation Comments Vitamin D, 25-OH, 16.6 ng/ml 30.0-100.0 Reference range is based Total (test code on recommen dations in the = Vitamin D, EndocrineSociet y Clinical 25-OH, Total) Practice Guide line (J Clin Endocrinol Iynaa2939;96:19 11-1930) [facility][H] Vitamin E Yjn9032-51-96 10:09:01 Test Item Value Reference Range Interpretation Comments Alpha-Tocoph 5.7 mg/L 7.0-25.1 katrin (test code = Alpha-Tocoph katrin) Gamma-Tocoph 2.4 mg/L 0.5-5.5 Reference inter vals for alpha and katrin (test gamma-tocophero ldetermined from code = National Health and Nutrition Gamma-Tocoph ExaminationSurv ey, 3934-3103. katrin) Individuals wit h alpha-tocopherol levelsless than 5.0 mg/L are considered jammie min E deficient.This test was developed and its perform ance characteristics determined by [facility]. It has not been cleared orapproved by [facility] Food and Drug Administration. Performed At: [facility] [id number] [place], [place] [id number] Murdock MD Ph :[phone] [facility][H] Vit [id number] 10:09:01 Test Item Value Reference Range Interpretation Comments Vitamin A 22.1 ug/dL 33.1-100.0 Reference inter vals for vitamin Level (test A determined fr om code = [facility] and Nutrition Vitamin A Examination [place], Level) .Indiv iduals with vitamin A less than 20 ug/dL areconsidered v itamin A deficient and t hose with serumconcentrat ions less than 10 ug/dL are co nsidered severelydeficie nt.This test was developed and i ts performance characteristics determined by [facility]. It has not been cleared orappro mamie by the Food and Drug Administration. Performed At: [address] [id number] Murdock MD Ph:[phone] [facility]] VITAMIN B1, WHOLE [id number] 10:09:01 Test Item Value Reference Range Interpretation Comments Vitamin B1 128.4 66.5-200.0 This test was d eveloped and its Level (test nmol/L performance code = characteristics determined by Vitamin B1 [facility]. It has not been Level) cleared orappro mamie by the Food and Drug Administration. Performed At: [address] [id number] dereje Murdock MD Ph:[phone] [facility]icians[facility] UIQCZNH1463-61-28 13:30:00 Test Item Value Reference Range Interpretation Comments CULTURE ([facility]) (test code = 1095) No growth POCT-GLUCOSE [id number] 08:21:00 Test Item Value Reference Range Interpretation Comments POC-GLUCOSE METER 99 mg/dL 70-110 TESTED AT [facility] 67[address] ([facility]) (test code = [facility] [address] 1538) POCT-GLUCOSE [id number] 06:14:00 Test Item Value Reference Range Interpretation Comments POC-GLUCOSE METER 105 mg/dL 70-110 TESTED AT [facility] [address] [facility] (test code = [facility] 1538) [address] BASIC METABOLIC [id number] 05:56:00 Test Item Value Reference Range Interpretation [...] PATIEN TS. CBC W/PLT COUNT & AUTO [id number] 05:15:00 Test Item Value Reference Range Interpretation [...] PERCENT (BEAKER) (test code = 2801) POCT-GLUCOSE [id number] 00:23:00 Test Item Value Reference Range Interpretation Comments POC-GLUCOSE METER 111 mg/dL 70-110 H TESTED AT [facility] [address] ([facility]) (test code = [facility] 1538) [address] MR, MRA, BRAIN, WITHOUT [id number] 20:13:00Reason for exam:->Ischemic Stroke EvaluationFINAL REPORT MRA Head CLINICAL HISTORY: Stroke TECHNIQUE: MRA of the head utilizing 3-D kndv-we-dqwsnr technique, with 3-D reconstructions. COMPARISON: None FINDINGS: There is noevidence of intracranial aneurysm, focal stenosis, or major branch vessel occlusion. There is a origin of the right posterior cerebral artery. IMPRESSION: No evidence for a major [place] branch vessel occlusion. MRA Neck CLINICAL HISTORY: Stroke TECHNIQUE: MRA of the neck utilizing 2-D and 3-D ihlm-mm-iobvaa technique, with 3-D reconstructions. COMPARISON: None FINDINGS: Thecarotid arteries in the neck are patent including their bifurcations. There is antegrade flow in the vertebral arteries in the neck. IMPRESSION: No evidence of hemodynamically significant stenosis in the cervical carotid or vertebral arteries by NASCET criteria. Signed: Madeleine Macias MDReport Verified Date/Time: 12/08/2017 20:13:50 Reading Location: [facility] Radiology Reading Room MR, MRA, NECK, WITHOUT IV [id number] 20:13:00Reason for exam:- >Ischemic Stroke EvaluationFINAL REPORT MRA Head CLINICAL HISTORY: Stroke TECHNIQUE: MRA of the head utilizing 3-D acdr-ly-nuptnt technique, with 3-D reconstructions. COMPARISON: None FINDINGS: There is no evidence of intracranial aneurysm, focal stenosis, or major branch vessel occlusion. There is a origin of the right posterior cerebral artery. IMPRESSION: No evidence for a major [place] vessel occlusion. MRA Neck CLINICAL HISTORY: Stroke TECHNIQUE: MRA of the neck util izing 2-D and 3-D wjcv-wv-gmpaty technique, with 3-D reconstructions. COMPARISON: None FINDINGS: Thecarotid arteries in the neck are patent including their bifurcations. There is antegrade flow in the vertebral arteries in the neck. IMPRESSION: No evidence of hemodynamically significant stenosis in the cervical carotid or vertebral arteries by NASCET criteria. Signed: Madeleine Macias Verified Date/Time: 12/08/2017 20:13:50 Reading Location: [facility], operated by [facility] Reading Room MR, BRAIN, WITHOUT [id number] 20:02:00Reason for exam:->StrokeWhat is the patient's sedation [...] infarct, hemorrhage, or hydrocephalus. Signed: Madeleine Macias Verified Date/Time: 12/08/2017 20:02:46 Reading Location: [facility] Radiology Reading Room 08:02 PMPOCT-GLUCOSE [id number] 15:23:00 Test Item Value Reference Range Interpretation Comments POC-GLUCOSE METER 106 mg/dL 70-110 TESTED AT [place] [address] ([facility]) (test code = KENNETH Kinney [facility] 1538) [address] HEMOGLOBIN [id number] 11:57:00 Test Item Value Reference Range Interpretation Comments HEMOGLOBIN A1C ([facility]) (test code = 6.6 % 4.3-6.1 H 368) FastingTROPONIN [id number] 09:50:00 Test Item Value Reference Range Interpretation Comments TROPONIN I ([facility]) (test code = 397) < ng/mL 0.00-0.03 [...] acidosis, acute neurological disease, and persistent tachyarrhythmia.POCT-GLUCOSE [id number] 06:23:00 Test Item Value Reference Range Interpretation Comments POC-GLUCOSE METER 110 mg/dL 70-110 TESTED AT [place] [address] ([facility]) (test code = KENNETH Kinney [facility] 1538) [address] POCT-GLUCOSE [id number] 06:15:00 Test Item Value Reference Range Interpretation Comments POC-GLUCOSE METER 149 mg/dL 70-110 H TESTED AT [place] [address] ([facility]) (test code = KENNETH Kinney [facility] 1538) [address] VITAMIN B12 AND [id number] 05:50:00 Test Item Value Reference Range Interpretation Comments VITAMIN B12 ([facility]) (test code = 688 pg/mL 213-737 034) FOLATE ([facility]) (test code = 362) 12.1 ng/mL >=7.0 TSH/FREE T4 IF [id number] 05:29:00 Test Item Value Reference Range Interpretation Comments THYROID STIMULATING HORMONE 0.66 uIU/mL 0.35-4.94 ([facility]) (test code = 772) BASIC METABOLIC [id number] 05:11:00 Test Item Value Reference Range Interpretation [...] 697) EGFR (BEAKER) (test 97 mL/min/1.73 ESTIMA OCTAVIANO GFR IS code = 1092) sq m NOT ACCURATE CREATININE CLEARANCE IN PREDICTING GLOMERULAR FILTRATION RATE . ESTIMATED GFR I S NOT APPLICABLE FOR DIALYSIS PATIEN TS. FastingLIPID [id number] 05:11:00 Test Item Value Reference Range Interpretation [...] 160-189 Very High >=190 FastingRAPID DRUG SCREEN, [id number] 04:34:00 Test Item Value Reference Range Interpretation [...] situations. Chain of custody not maintained. Some yiya-mkf-uifkmwj medications, as well as adulterants, may cause inaccurate results. Clinical correlation should be applied. A more comprehensive drug screen or confirmation of a detected drug may be performed upon request.URINALYSIS W/ [id number] 04:09:00 Test Item Value Reference Range Interpretation [...] 2795) Collection CBC W/PLT COUNT & AUTO [id number] 03:54:00 Test Item Value Reference Range Interpretation [...] PERCENT (BEAKER) (test code = 2801) TROPONIN [id number] 23:56:00 Test Item Value Reference Range Interpretation [...] acute neurological disease, and persistent tachyarrhythmia.HEPATIC FUNCTION [id number] 23:49:00 Test Item Value Reference Range Interpretation [...] code = 17 U/L 6-55 347) PROTHROMBIN TIME/[id number] 23:40:00 Test Item Value Reference Range Interpretation [...] = 2801) RAD, CHEST, 1 VIEW, NON [id number] 21:51:00Reason for exam:->Stroke work up.Is the patient ?->UnknownShould this be performed at the bedside?->YesFINAL REPORT Clinical History: Stroke workup Comparison Study: None Findings: The cardiac silhouette is enlarged. The lungs are within normal limits. The pleural spaces are clear. No significant bony or soft tissue abnormalities are seen. Impression: Cardiomegaly. Signed: Shelley Goodwin MDReport Verified Date/Time: 12/07/2017 21:51:29 Reading Location: [address] Consult Reading Room POCT-GLUCOSE [id number] 11:34:00 Test Item Value Reference Range Interpretation Comments POC-GLUCOSE METER 84 mg/dL 70-110 TESTED AT [facility] 6720 (BEAKER) (test code = [place] [address] 1538) [id number] 08:58:00 Test Item Value Reference Range Interpretation Comments PHOSPHORUS (BEAKER) (test code = 4.4 mg/dL 2.3-4.7 604) [id number] 08:58:00 Test Item Value Reference Range Interpretation Comments MAGNESIUM (BEAKER) (test code = 2.3 mg/dL 1.6-2.6 627) BASIC METABOLIC [id number] 08:58:00 Test Item Value Reference Range Interpretation [...] 697) EGFR (BEAKER) (test 94 mL/min/1.73 ESTIMA OCTAVIANO GFR IS code = 1092) sq m NOT ACCURATE CREATININE CLEARANCE IN PREDICTING GLOMERULAR FILTRATION RATE . ESTIMATED GFR I S NOT APPLICABLE FOR DIALYSIS PATIEN TS. HEPATIC FUNCTION [id number] 08:58:00 Test Item Value Reference Range Interpretation [...] code = 17 U/L 6-55 347) POCT-GLUCOSE [id number] 08:20:00 Test Item Value Reference Range Interpretation Comments POC-GLUCOSE METER 143 mg/dL 70-110 H TESTED AT [facility] 6720 (BEAKER) (test code = KENNETH [place] 1538) [address] PROTHROMBIN [id number] 05:55:00 Test Item Value Reference Range Interpretation Comments PROTIME (BEAKER) (test code = 13.4 seconds 11.7-14.7 759) INR (BEAKER) (test code = 370) 1.0 <=5.9 RECOMMENDED COUMADIN/WARFARIN INR THERAPY RANGESSTANDARD DOSE: 2.0 - 3.0 Includes: PROPHYLAXIS forvenous thrombosis, systemic embolization; TREATMENT for venous thrombosis and/or pulmonary embolus.HIGH RISK: Target INR is 2.5-3.5 for patients with mechanical heart valves.POCT-GLUCOSE [id number] 20:32:00 Test Item Value Reference Range Interpretation Comments POC-GLUCOSE METER 90 mg/dL 70-110 TESTED AT [place] [address] ([facility]) (test code = KENNETH Kinney [facility] [address] 1538) POCT-GLUCOSE [id number] 16:47:00 Test Item Value Reference Range Interpretation Comments POC-GLUCOSE METER 79 mg/dL 70-110 TESTED AT [place] [address] ([facility]) (test code = KENNETH Kinney [facility] [address] 1538) POCT-GLUCOSE [id number] 07:47:00 Test Item Value Reference Range Interpretation Comments POC-GLUCOSE METER 97 mg/dL 70-110 TESTED AT [place] [address] ([facility]) (test code = [facility] Nirmal [facility] [address] 1538) TROPONIN [id number] 07:02:00 Test Item Value Reference Range Interpretation [...] failure, acidosis, acute neurological disease, and persistent tachyarrhythmia.[id number] 07:00:00 Test Item Value Reference Range Interpretation Comments PHOSPHORUS (BEAKER) (test code = 5.0 mg/dL 2.3-4.7 H 604) [id number] 07:00:00 Test Item Value Reference Range Interpretation Comments MAGNESIUM (BEAKER) (test code = 1.9 mg/dL 1.6-2.6 627) BASIC METABOLIC [id number] 07:00:00 Test Item Value Reference Range Interpretation [...] 697) EGFR (BEAKER) (test 89 mL/min/1.73 ESTIMA OCTAVIANO GFR IS code = 1092) sq m NOT ACCURATE CREATININE CLEARANCE IN PREDICTING GLOMERULAR FILTRATION RATE . ESTIMATED GFR I S NOT APPLICABLE FOR DIALYSIS PATIEN TS. HEPATIC FUNCTION [id number] 07:00:00 Test Item Value Reference Range Interpretation [...] code = 21 U/L 6-55 347) PROTHROMBIN TIME/[id number] 06:31:00 Test Item Value Reference Range Interpretation [...] 417) IMMATURE GRANULOCYTES-RELATIVE 0 % 0-1 PERCENT ([facility]) (test code = 2801) CREATINE KINASE (CK), TOTAL AND [id number] 01:39:00 Test Item Value Reference Range Interpretation Comments CREATINE KINASE TOTAL ([facility]) 55 U/L 29-200 (test code = 380) CREATINE KINASE-MB ([facility]) (test 1.1 ng/mL 0.0-6.6 code = 750) CREATINE KINASE-MB INDEX ([facility]) 2.0 % (test code = 395) CK-MB Reference Range:<6.7 Normal6.7-10.0 Borderline>10.0 AbnormalTROPONIN [id number] 01:39:00 Test Item Value Reference Range Interpretation Comments TROPONIN I ([facility]) (test code = 397) < ng/mL 0.00-0.03 [...] acidosis, acute neurological disease, and persistent tachyarrhythmia.POCT-GLUCOSE [id number] 12:39:00 Test Item Value Reference Range Interpretation Comments POC-GLUCOSE METER 80 mg/dL 70-110 TESTED AT [place] [address] ([facility]) (test code = [facility] [address] 1538) POCT-GLUCOSE [id number] 07:07:00 Test Item Value Reference Range Interpretation Comments POC-GLUCOSE METER 100 mg/dL 70-110 TESTED AT [place] [address] ([facility]) (test code = [facility] 1538) [address] POCT-GLUCOSE [id number] 21:12:00 Test Item Value Reference Range Interpretation Comments POC-GLUCOSE METER 138 mg/dL 70-110 H TESTED AT [place] [address] ([facility]) (test code = [facility] 1538) [address] POCT-GLUCOSE [id number] 12:04:00 Test Item Value Reference Range Interpretation Comments POC-GLUCOSE METER 113 mg/dL 70-110 H TESTED AT [place] [address] (BEAKER) (test code = KENNETH Kinney [place] 1538) [address] BASIC METABOLIC [id number] 04:26:00 Test Item Value Reference Range Interpretation [...] PATIEN TS. CBC W/PLT COUNT & AUTO [id number] 04:02:00 Test Item Value Reference Range Interpretation [...] (test code = 2801) CLOSTRIDIUM DIFFICILE TOXIN [id number] 13:44:00 Test Item Value Reference Range Interpretation [...] a positive result is not recommended.CT, CTANGIO [id number] 06:59:00Addendum BeginsREPORT STATUS:A Three-dimensional post intravenous contrast images of the cerebral vasculature were created on a free standing workstation for better visualization of cerebral vascular anatomy and pathology. Signed: Skip Gardner MDReport Verified Date/Time: 04/12/2017 06:59:20 Reading Location: [facility] [id number] Ortho Consult Reading RoomAddendum EndsFINAL [...] MDReport Verified Date/Time: 04/07/2017 01:12:44 Reading Location: [facility] C0X Ortho Consult Reading Room BASIC METABOLIC PANEL [...] 697) EGFR (BEAKER) (test 99 mL/min/1.73 ESTIMA OCTAVIANO GFR IS code = 1092) sq m [...] 753) MEAN CORPUSCULAR HEMOGLOBIN 28.8 pg 25.6-32.2 (AKER) (test code = 751) MEAN CORPUSCULAR HEMOGLOBIN CONC 31.6 GM/DL 32.2-35.5 L (BEAKER) (test code = 752) RED CELL DISTRIBUTION WIDTH 14.0 % 11.7-14.4 (BEAKER) (test code = 412) PLATELET COUNT ([facility]) (test 219 K/CU MM 150-450 code = 756) MEAN PLATELET VOLUME ([facility]) 11.6 fL 9.4-12.3 (test code = 754) NUCLEATED RED BLOOD CELLS 0 /100 WBC 0-0 ([facility]) (test code = 413) POCT-GLUCOSE [id number] 17:55:00 Test Item Value Reference Range Interpretation Comments POC-GLUCOSE METER 111 mg/dL 70-110 H TESTED AT [place] [address] ([facility]) (test code = KENNETH Kinney [facility] 1538) [address] POCT-GLUCOSE [id number] 12:02:00 Test Item Value Reference Range Interpretation Comments POC-GLUCOSE METER 100 mg/dL 70-110 TESTED AT [place] [address] ([facility]) (test code = KENNETH Kinney [facility] 1538) [address] POCT-GLUCOSE [id number] 07:50:00 Test Item Value Reference Range Interpretation Comments POC-GLUCOSE METER 110 mg/dL 70-110 TESTED AT [place] [address] ([facility]) (test code = KENNETH [place] 1538) [address] POCT-GLUCOSE [id number] 16:56:00 Test Item Value Reference Range Interpretation Comments POC-GLUCOSE METER 104 mg/dL 70-110 TESTED AT [place] [address] ([facility]) (test code = KENNETH Kin[place] 1538) [address] POCT-GLUCOSE [id number] 12:22:00 Test Item Value Reference Range Interpretation Comments POC-GLUCOSE METER 84 mg/dL 70-110 TESTED AT [facility] 6720 (BEAKER) (test code = [place] [address] 1538) HEMOGLOBIN [id number] 08:46:00 Test Item Value Reference Range Interpretation Comments HEMOGLOBIN A1C (BEAKER) (test code = 6.2 % 4.3-6.1 H 368) BASIC METABOLIC [id number] 06:42:00 Test Item Value Reference Range Interpretation [...] PATIEN TS. CBC W/PLT COUNT & AUTO [id number] 06:19:00 Test Item Value Reference Range Interpretation [...] PERCENT (BEAKER) (test code = 2801) POCT-GLUCOSE [id number] 12:07:00 Test Item Value Reference Range Interpretation Comments POC-GLUCOSE METER 110 mg/dL 70-110 TESTED AT [facility] 6720 (BEAKER) (test code = NEGRITOVIC Kinney [facility] 1538) [address] CT, BRAIN, WITHOUT [id number] 06:55:00FINAL REPORT Clinical history : Decreased alertnessComparison [...] MDReport Verified Date/Time: 04/09/2017 06:55:25 Reading Location: [facility] [id number] Consult Reading Room BASIC METABOLIC [id number] 05:57:00 Test Item Value Reference Range Interpretation [...] PATIEN TS. CBC W/PLT COUNT & AUTO [id number] 04:54:00 Test Item Value Reference Range Interpretation [...] PERCENT (BEAKER) (test code = 2801) POCT-GLUCOSE [id number] 01:34:00 Test Item Value Reference Range Interpretation Comments POC-GLUCOSE METER 92 mg/dL 70-110 TESTED AT [facility] 6720 ([facility]) (test code = [place] [address] 1538) POCT-GLUCOSE [id number] 19:20:00 Test Item Value Reference Range Interpretation Comments POC-GLUCOSE METER 85 mg/dL 70-110 TESTED AT [facility] 67 ([facility]) (test code = KENNETH Kinney [facility] [address] 1538) CT, BRAIN, WITHOUT [id number] 15:47:00FINAL REPORT CT head without contrast. Comparisons: [...] Darren Tijerina Verified Date/Time: 04/08/2017 15:47:42 POCT-GLUCOSE [id number] 12:44:00 Test Item Value Reference Range Interpretation Comments POC-GLUCOSE METER 94 mg/dL 70-110 TESTED AT [facility] 6720 ([facility]) (test code = KENNETH Kinney [facility] [address] 1538) BASIC METABOLIC [id number] 05:05:00 Test Item Value Reference Range Interpretation [...] PATIEN TS. CBC W/PLT COUNT & AUTO [id number] 04:28:00 Test Item Value Reference Range Interpretation [...] PERCENT (BEAKER) (test code = 2801) POCT-GLUCOSE [id number] 17:32:00 Test Item Value Reference Range Interpretation Comments POC-GLUCOSE METER 90 mg/dL 70-110 TESTED AT [facility] 6720 ([facility]) (test code = KENNETH Kinney [facility] [address] 1538) POCT-GLUCOSE [id number] 12:02:00 Test Item Value Reference Range Interpretation Comments POC-GLUCOSE METER 91 mg/dL 70-110 TESTED AT [facility] 67 ([facility]) (test code = KENNETH Kinney [facility] [address] 1538) EEG AWAKE AND [id number] 11:38:00Reason for exam:->R/O subclinical seizuresDATE OF [id number] OF REPORT: 12-29-5792CCG: [id number]: 17- 1801Start time: 09:54Stop time: 10:18ICD-10: G 93.40CPT Code: 51789 HISTORY: 41 y.o. female with history of morbid obesity, DM2 who presented today to OSH with R sided facial droop and LUE weakness . Patient was evaluated at OSH where patient was started with tPA after normal CT. Now with acute encephalopathy MEDICATIONS THAT COULD AFFECT EEG: TECHNICAL SUMMARY: This is a digital EEG recorded with 32 input channels on a [employer] system and then reviewed with bipolar and [...] additional EEG recordings. Javi Mae MDNeurophysiology Fellow [id number] Note: I personally reviewed this EEG record in its entirety and I agreewith the details of this report. Kitty Montejo MD, PhDEpilepsy Attending CREATINE KINASE (CK), TOTAL AND [id number] 09:35:00 Test Item Value Reference Range Interpretation Comments CREATINE KINASE TOTAL (BEAKER) 52 U/L 29-200 (test code = 380) CREATINE KINASE-MB (BEAKER) (test 1.2 ng/mL 0.0-6.6 code = 750) CREATINE KINASE-MB INDEX (BEAKER) 2.3 % (test code = 395) CK-MB Reference Range:<6.7 Normal6.7-10.0 Borderline>10.0 AbnormalTROPONIN [id number] 09:31:00 Test Item Value Reference Range Interpretation [...] failure, acidosis, acute neurological disease, and persistent tachyarrhythmia.[id number] 09:28:00 Test Item Value Reference Range Interpretation Comments AMMONIA (BEAKER) (test code = 348) 34 mol/L 18-72 TSH/FREE T4 IF [id number] 04:28:00 Test Item Value Reference Range Interpretation Comments THYROID STIMULATING HORMONE 1.12 uIU/mL 0.35-4.94 (BEAKER) (test code = 772) VITAMIN B12 AND [id number] 04:28:00 Test Item Value Reference Range Interpretation Comments VITAMIN B12 (BEAKER) (test code = 417 pg/mL 213-816 774) FOLATE (BEAKER) (test code = 362) 13.6 ng/mL >=7.0 CBC W/PLT COUNT & AUTO [id number] 03:27:00 Test Item Value Reference Range Interpretation [...] = 2801) CREATINE KINASE (CK), TOTAL AND [id number] 03:11:00 Test Item Value Reference Range Interpretation Comments CREATINE KINASE TOTAL (BEAKER) 71 U/L 29-200 (test code = 380) CREATINE KINASE-MB (BEAKER) (test 1.5 ng/mL 0.0-6.6 code = 750) CREATINE KINASE-MB INDEX (BEAKER) 2.1 % (test code = 395) CK-MB Reference Range:<6.7 Normal6.7-10.0 Borderline>10.0 AbnormalFastingFastingTROPONIN [id number] 03:11:00 Test Item Value Reference Range Interpretation [...] acute neurological disease, and persistent tachyarrhythmia.FastingBASIC METABOLIC [id number] 03:04:00 Test Item Value Reference Range Interpretation [...] 697) EGFR (BEAKER) (test 95 mL/min/1.73 ESTIMA OCTAVIANO GFR IS code = 1092) sq m NOT ACCURATE CREATININE CLEARANCE IN PREDICTING GLOMERULAR FILTRATION RATE . ESTIMATED GFR I S NOT APPLICABLE FOR DIALYSIS PATIEN TS. FastingLIPID [id number] 03:04:00 Test Item Value Reference Range Interpretation [...] High 160-189 Very High >=190 FastingHEPATIC FUNCTION [id number] 03:04:00 Test Item Value Reference Range Interpretation [...] zed 706) ALKALINE PHOSPHATASE 74 U/L 40-150 (BEAKER) (test code = 346) AST (SGOT) (BEAKER) 37 U/L 5-34 H Specimen moderately (test code = 353) hemolyzed ALT (SGPT) (BEAKER) 18 U/L 6-55 Specimen moderately (test code = 347) hemolyzed Fasting
[2020-11-04 17:19] VITALS: BMI 64.1
[2020-11-04] MEDS ORDERED: MELATONIN 3 MG TABLET PO PRN (17:59)
[2020-11-04] MEDS ORDERED: ACYCLOVIR 400 MG TABLET PO SCH (18:00)
[2020-11-04] MEDS: ENOXAPARIN 40 MG/0.4 ML SQ SCH (18:05)
[2020-11-04] MEDS ORDERED: GLUCAGON 1 MG/VIAL IM PRN (18:13)
[2020-11-04] MEDS ORDERED: D50W 25 GM/50 ML VIAL IV PRN (18:27)
[2020-11-04] MEDS ORDERED: DOCUSATE NA/SENNA CONC 1 TAB PO PRN (18:44)
[2020-11-04] MEDS ORDERED: carBAMazepine 200 MG TAB PO SCH (20:00)
[2020-11-04] MEDS: acetaZOLAMIDE 250 MG TAB PO SCH (20:23)
[2020-11-04] MEDS: carBAMazepine 200 MG TAB PO SCH (20:23)
[2020-11-04] MEDS: MELATONIN 3 MG TABLET PO PRN (20:24)
[2020-11-04] MEDS: ATORVASTATIN 10 MG TAB PO SCH (20:24)
[2020-11-04] MEDS: ACYCLOVIR 400 MG TABLET PO SCH (20:26)
[2020-11-04] MEDS: SODIUM CHLORIDE OPTH SCH (20:26)
[2020-11-04] MEDS: INSULIN -REGULAR HUMAN 50 UNIT/0.5 ML ML SQ SCH (20:26)
[2020-11-05 02:04] LABS: Urine Appearance CLEAR (Clear); Urine Bilirubin NEGATIVE (Negative); Urine Blood NEGATIVE (Negative); Urine Color YELLOW (Yellow); Urine Glucose NEGATIVE (Negative); Urine Protein NEGATIVE (Negative); Urine Specific Gravity 1.025 (1.005-1.030); Urine Urobilinogen 0.2 mg/dL (0.2-1.0)
[2020-11-05 02:31] LABS: Urine Bacteria <20 /HPF (<20); Urine RBC <5 /HPF (NONE SEEN)
[2020-11-05 06:37] LABS: Absolute Lymphocytes (CBC) 1.5 K/uL (0.7-4.9); Basophils % 0.3 % (0-1.3); Hematocrit 33.9 % (36.0-45.0); RBC Red Blood Cell Count 3.75 M/uL (3.86-4.86)
[2020-11-05 07:29] LABS: Albumin 2.9 g/dL (3.4-5.0); BUN Blood Urea Nitrogen 17 mg/dL (7-18); Bicarbonate 22 mmol/L (21-32); Glucose Level 122 mg/dL (74-106); Magnesium 2.2 mg/dL (1.8-2.4); Potassium 3.7 mmol/L (3.5-5.1); Prealbumin 17.7 mg/dL (20-40); Sodium Level 145 mmol/L (136-145)
[2020-11-05] MEDS: INSULIN -REGULAR HUMAN 50 UNIT/0.5 ML ML SQ SCH ×4 (07:30→20:14)
[2020-11-05] MEDS: LABETALOL HCL 100 MG TAB PO SCH (08:00)
[2020-11-05] MEDS: ASPIRIN EC 81 MG TAB PO SCH (08:48)
[2020-11-05] MEDS: PANTOPRAZOLE 40MG TABLET PO SCH ×2 (08:48→16:48)
[2020-11-05] MEDS: carBAMazepine 200 MG TAB PO SCH ×2 (08:49→20:13)
[2020-11-05] MEDS: ACYCLOVIR 400 MG TABLET PO SCH ×5 (08:49→20:21)
--- NOTE | 2020-11-05 09:59 | R.HP ---
HISTORY AND PHYSICAL FACILITY: [facility] ENCOUNTER DATE AND TIME: 11/05/2020 09:54 (CDT) MR#: [id number] NAME GIOVANNY HARRISON ADDRESS: [address] [place], [place] [address] CITY: [place] [address]IP [address] PHONE: DATE OF : 1975 AGE: 45 SSN# [id number] GENDER: Female DEXTERITY Right-handed MARITAL STATUS RACE Unknown race PRE-HOSPITAL LIVING SETTING 01 - Home (private home/apt. board/care, assisted living, jail, transitional living) PRE-HOSPITAL LIVING WITH Family/Relatives ENCOUNTER PHYSICIAN: Dr. Tricia Concepcion REFERRING DOCTOR: jenna Guidry DATE OF ADMISSION: 11/04/2020 16:46 (CDT) REFERRING FACILITY [facility] HOME TYPE AND DETAILS: Type of home: single family house # of levels in the residence: 1 # of steps to enter the residence: 0 ADMISSION DIAGNOSIS: CVA ONSET DATE: 10/28/2020 PRIMARY DIAGNOSIS-RELATED SURGERIES: N/A HISTORY OF PRESENT ILLNESS (HPI): Pt. is a 45 yo Right-handed female of unknown race. On 10/28/2020 Pt. presented to [facility] with sudden onset of right-side weakness . On 10/28/2020 she was admitted to [facility] with diagnosis CVA. Her impairment category is Stroke 01 - Right Body (Left Brain) (01.2). Pre-morbidly, Pt. was independent/mod-I in Sphincter Control, Self-Care, Transfers Control, and Trupti ce; and she had good Endurance and Locomotion. Currently, she has deficits of Safety Awareness, Balance, Sphincter Control, Transfers Control, Endur ance, and Locomotion. Pt. is now referred to [facility] for acute in-patient rehabilitation in order to maximize patient's functional independence in activities of daily living, strength, ROM, and mobi lity. Patient has realistic goal of being discharged at assistance level 7-Ind to reside at Home with Fami ly/Relatives. MEDICATION ALLERGIES: No Known Drug Allergies (NKDA) ENVIRONMENTAL ALLERGIES: - Substance Allergies None Known - Other Allergies None Known PAST MEDICAL HISTORY: HTN LEFT BELLS PALSY DM2 MORBID OBESITY PAST SURGICAL HISTORY: HYSTERECTOMY X 3 CHOLECYSTECTOMY TUBAL LIGATION KNEE SURGERY X 3 SOCIAL HISTORY: - Home Living Family/Relatives REVIEW OF SYSTEMS: - Gen No Chills No Fatigue No Fever - Eyes No Double Vision No itchiness - ENMT No Difficulty Swallowing - CVS No Chest Discomfort No Chest Pain No Fatigue No Weight Gain - Resp No Cough No Shortness of Breath - GI Continent No Abdominal Pain No Constipation No Diarrhea - Continent No Kidney Pain No Painful Urination No Urinary Urgency - MSK No Joint Pain No Muscle Cramps No Stiffness - Skin No Itching No Rash No Suspicious Lesions - Neuro No Coordination Difficulty No Difficulty with Concentration No Memory Loss No Seizures No Weakness - Psych No Anxiety No Depression No HIV Exposure No Persistent Infections No Seasonal Allergies - Endo No Cold/Heat Intolerance No Excessive Hunger No Excessive Thirst No Excessive Urination PHYSICAL EXAM - Gen Alert and awake Lying in bed No apparent distress Oriented to: person, time, and place - Vital Signs Temperature: 97.7 F SBP/DBP: 128/83 Pulse: 62 Resp: 16 Vital signs stable, afebrile - CVS RRR VITAL SIGNS Temperature: 97.7 F SBP/DBP: 128/83 Pulse: 62 Resp: 16 Vital signs stable, afebrile NURSING: - Shower allowing shower - Bladder care per protocol - Skin care per protocol PRECAUTIONS: - Weight Bearing Precaution WBAT right LE ACTIVITIES OOB only with supervision QI SCORES: - Self-Care A. Eating 03-Partial/moderate assistance B. Oral hygiene 03-Partial/moderate assistance C. Toileting hygiene 03-Partial/moderate assistance E. Shower/bathe self 02-Substantial/maximal assistance F. Upper body dressing 03-Partial/moderate assistance G. Lower body dressing 03-Partial/moderate assistance H. Putting on/taking off footwear 03-Partial/moderate assistance - Mobility A. Roll left and right 03-Partial/moderate assistance B. Sit to lying 03-Partial/moderate assistance C. Lying to sitting on side of bed 03-Partial/moderate assistance D. Sit to stand 03-Partial/moderate assistance E. Chair/dwm-[id number]-[id number] transfer 03-Partial/moderate assistance F. Toilet transfer 03-Partial/moderate assistance G. Car transfer 88-Not attempted due to medical condition or safety concerns I. Walk 10 feet 88-Not attempted due to medical condition or safety concerns J. Walk 50 feet with two turns 88-Not attempted due to medical condition or safety concerns K. Walk 150 feet 88-Not attempted due to medical condition or safety concerns L. Walking 10 feet on uneven surfaces 88-Not attempted due to medical condition or safety concerns M. 1 step (curb) 88-Not attempted due to medical condition or safety concerns N. 4 steps 88-Not attempted due to medical condition or safety concerns O. 12 steps 88-Not attempted due to medical condition or safety concerns P. Picking up object 88-Not attempted due to medical condition or safety concerns R. Wheel 50 feet with two turns 88-Not attempted due to medical condition or safety concerns S. Wheel 150 feet 88-Not attempted due to medical condition or safety concerns - Bladder and Bowel Bladder continence Bowel continence - Endurance Fair - Balance Fair - Safety Awareness Fair CURRENT [facility]. DEFICITS: Self-Care, Mobility, Endurance, Balance, and Safety Awareness MEDICATIONS: - Other See attached MAR (Medication Administration Record) ASSESSMENT: Pt. is a 45 yo Right-handed female of unknown race.On 10/28/2020 Pt. presented to [facility] with sudden onset of right-side weakness.On 10/28/2020 she was admitted to [facility] with diagnosis CVA.Her impairment category is Stroke 01 - Right Body (Left Brain) (01 .2).Pre-morbidly, Pt. was independent/mod-I in Sphincter Control, Self-Care, Transfers Control, and B alance; and she had good Endurance and Locomotion.Currently, she has deficits of Safety Awareness, Ba edmundo, Sphincter Control, Transfers Control, Endurance, and Locomotion.Pt. is now referred to [facility] for acute in-patient rehabilitation in order to maximize patient's functio nal independence in activities of daily living, strength, ROM, and mobility.- Rehab Goal Patient has realistic goal of being discharged at assistance level 7-Ind to reside at Home with Fami ly/Relatives. REHAB PLAN: for Dementia, TBI, Stroke, or others - Physical Therapy Gait dysfunction - to improve, our physical therapists will perform initial evaluation of pt's status upon admission and devise an individualized program for Gait Training, and Wheel Chair mobility Inability to transfer - to improve, our physical therapists will perform initial evaluation of pt's s tatus upon admission and devise an individualized program for Bed mobility Need for home safety evaluation - to improve, our physical therapists will perform initial evaluation of pt's status upon admission and devise an individualized program for Home Evaluation Need in caregiver upon discharge - to improve, our physical therapists will perform initial evaluatio n of pt's status upon admission and devise an individualized program for Caregiver Training New precaution - to improve, our physical therapists will perform initial evaluation of pt's status u dionna admission and devise an individualized program for Patient precaution education Poor balance - to improve, our physical therapists will perform initial evaluation of pt's status upo n admission and devise an individualized program for Balance Training Poor endurance - to improve, our physical therapists will perform initial evaluation of pt's status u dionna admission and devise an individualized program for Endurance Training Weakness - to improve, our physical therapists will perform initial evaluation of pt's status upon ad mission and devise an individualized program for Aquatic Therapy, Neuromuscular Reeducation, and Stre ngthening Achieving independence - to improve, our physical therapists will perform initial evaluation of pt's status upon admission and devise an individualized program for Community Reintegration Activities - Occupational Therapy Need for director of primary care - to improve, our occupation therapists will perform initial evaluation of pt's s tatus upon admission and devise an individualized program for Caregiver Training Weakness - to improve, our occupation therapists will perform initial evaluation of pt's status upon admission and devise an individualized program for Aquatic Therapy, Balance, Endurance, UE ROM, and U E strengthening MEDICAL PLAN: - Diet Type Start Regular - Diet - Liquid Texture Start Regular - Tube Feed Start N/A - Bladder care per protocol - Weight Bearing Precaution WBAT right LE - Skin care per protocol - Other See attached MAR (Medication Administration Record) - Diet - Solid Texture Regular - Shower shower DISCHARGE PLAN: - Estimated Length of Stay (days) 17. - Consensus on plan Discharge plan has been discussed with primary caregiver. Patient/Family is in agreement with the reno n. Primary caregiver is in agreement with the plan. - Patient/Family Goals Return home independently. - Planned Living Setting Upon Discharge Home, to live with Family/Relatives. Transitional Living. SIGNATURE PANEL: (CDT)
[2020-11-05] MEDS: acetaZOLAMIDE 250 MG TAB PO SCH ×2 (10:11→20:13)
--- NOTE | 2020-11-05 14:17 | FAST ---
[employer] FORM SHIFT START DATE/TIME: 11/05/2020 07:00 (CDT) SHIFT END DATE/TIME: 11/05/2020 19:00 (CDT) NAME GIOVANNY HARRISON DATE OF : 1975 DATE OF ADMISSION: 11/04/2020 16:46 (CDT) PHONE: AGE: 45 N# [id number] GENDER: Female ENCOUNTER PHYSICIAN: Dr. Tricia Concepcion ADMISSION DIAGNOSIS: - Stroke 01 - Right Body (Left Brain) (01.2) CVA. EATING: EATING - STEP 1: Does the patient complete the activity by him/herself with no assistance (physical, verbal/nonverbal cueing, setup/clean-up)? No. EATING - STEP 2: Does the patient need only setup/clean-up assistance from one helper? Yes. 1. [id number] ADMISSION PERFORMANCE: Setup or clean-up assistance CODE: 05 ORAL HYGIENE: ORAL HYGIENE - STEP 1: Does the patient complete the activity by him/herself with no assistance (physical, verbal/nonverbal cueing, setup/clean-up)? No. ORAL HYGIENE - STEP 2: Does the patient need only setup/clean-up assistance from one helper? Yes. 1. [id number] ADMISSION PERFORMANCE: Setup or clean-up assistance CODE: 05 TOILETING HYGIENE: TOILETING HYGIENE - STEP 1: Does the patient complete the activity by him/herself with no assistance (physical, verbal/nonverbal cueing, setup/clean-up)? No. TOILETING HYGIENE - STEP 2: Does the patient need only setup/clean-up assistance from one helper? Yes. 1. [id number] ADMISSION PERFORMANCE: Setup or clean-up assistance CODE: 05 BATHING: Not assessed/no information CODE: - DRESSING - UPPER BODY: DRESSING - UPPER BODY - STEP 1: Does the patient complete the activity by him/herself with no assistance (physical, verbal/nonverbal cueing, setup/clean-up)? No. DRESSING - UPPER BODY - STEP 2: Does the patient need only setup/clean-up assistance from one helper? Yes. 1. [id number] ADMISSION PERFORMANCE: Setup or clean-up assistance CODE: 05 DRESSING - LOWER BODY: DRESSING - LOWER BODY - STEP 1: Does the patient complete the activity by him/herself with no assistance (physical, verbal/nonverbal cueing, setup/clean-up)? No. DRESSING - LOWER BODY - STEP 2: Does the patient need only setup/clean-up assistance from one helper? No. DRESSING - LOWER BODY - STEP 3: Does the patient need only verbal/nonverbal cueing or touching/steadying/contact guard assistance fro m one helper? Yes. 1. [id number] ADMISSION PERFORMANCE: Supervision or touching assistance CODE: 04 PUTTING ON/TAKING OFF FOOTWEAR: FOOTWEAR - STEP 1: Does the patient complete the activity by him/herself with no assistance (physical, verbal/nonverbal cueing, setup/clean-up)? No. FOOTWEAR - STEP 2: Does the patient need only setup/clean-up assistance from one helper? No. FOOTWEAR - STEP 3: Does the patient need only verbal/nonverbal cueing or touching/steadying/contact guard assistance fro m one helper? Yes. 1. [id number] ADMISSION PERFORMANCE: Supervision or touching assistance CODE: 04 ROLL LEFT AND RIGHT: ROLL LEFT AND RIGHT - STEP 1: Does the patient complete the activity by him/herself with no assistance (physical, verbal/nonverbal cueing, setup/clean-up)? No. ROLL LEFT AND RIGHT - STEP 2: Does the patient need only setup/clean-up assistance from one helper? No. ROLL LEFT AND RIGHT - STEP 3: Does the patient need only verbal/nonverbal cueing or touching/steadying/contact guard assistance fro m one helper? Yes. 1. [id number] ADMISSION PERFORMANCE: Supervision or touching assistance CODE: 04 SIT TO LYING: SIT TO LYING - STEP 1: Does the patient complete the activity by him/herself with no assistance (physical, verbal/nonverbal cueing, setup/clean-up)? No. SIT TO LYING - STEP 2: Does the patient need only setup/clean-up assistance from one helper? No. SIT TO LYING - STEP 3: Does the patient need only verbal/nonverbal cueing or touching/steadying/contact guard assistance fro m one helper? Yes. 1. [id number] ADMISSION PERFORMANCE: Supervision or touching assistance CODE: 04 LYING TO SITTING: LYING TO SITTING ON SIDE OF BED - STEP 1: Does the patient complete the activity by him/herself with no assistance (physical, verbal/nonverbal cueing, setup/clean-up)? No. LYING TO SITTING ON SIDE OF BED - STEP 2: Does the patient need only setup/clean-up assistance from one helper? No. LYING TO SITTING ON SIDE OF BED - STEP 3: Does the patient need only verbal/nonverbal cueing or touching/steadying/contact guard assistance fro m one helper? Yes. 1. [id number] ADMISSION PERFORMANCE: Supervision or touching assistance CODE: 04 SIT TO STAND: SIT TO STAND - STEP 1: Does the patient complete the activity by him/herself with no assistance (physical, verbal/nonverbal cueing, setup/clean-up)? No. SIT TO STAND - STEP 2: Does the patient need only setup/clean-up assistance from one helper? No. SIT TO STAND - STEP 3: Does the patient need only verbal/nonverbal cueing or touching/steadying/contact guard assistance fro m one helper? Yes. 1. [id number] ADMISSION PERFORMANCE: Supervision or touching assistance CODE: 04 TRANSFERS: BED, CHAIR: CHAIR/[id number] TRANSFER - STEP 1: Does the patient complete the activity by him/herself with no assistance (physical, verbal/nonverbal cueing, setup/clean-up)? No. CHAIR/[id number] TRANSFER - STEP 2: Does the patient need only setup/clean-up assistance from one helper? No. CHAIR/[id number] TRANSFER - STEP 3: Does the patient need only verbal/nonverbal cueing or touching/steadying/contact guard assistance fro m one helper? Yes. 1. [id number] ADMISSION PERFORMANCE: Supervision or touching assistance CODE: 04 TRANSFER TOILET: TOILET TRANSFER - STEP 1: Does the patient complete the activity by him/herself with no assistance (physical, verbal/nonverbal cueing, setup/clean-up)? No. TOILET TRANSFER - STEP 2: Does the patient need only setup/clean-up assistance from one helper? No. TOILET TRANSFER - STEP 3: Does the patient need only verbal/nonverbal cueing or touching/steadying/contact guard assistance fro m one helper? Yes. 1. [id number] ADMISSION PERFORMANCE: Supervision or touching assistance CODE: 04 TRANSFERS: CAR: Not assessed/no information CODE: - WALK 10 FEET: Not assessed/no information CODE: - 1 STEP (CURB): Not assessed/no information CODE: - PICKING UP OBJECT: Not assessed/no information CODE: - DOES THE PATIENT USE A WHEELCHAIR/SCOOTER? Q1. DOES THE PATIENT USE A WHEELCHAIR/SCOOTER?: Yes CODE: 1 WHEEL 50 FEET WITH TWO TURNS: WHEEL 50 FEET WITH TWO TURNS - STEP 1: Does the patient complete the activity by him/herself with no assistance (physical, verbal/nonverbal cueing, setup/clean-up)? No. WHEEL 50 FEET WITH TWO TURNS - STEP 2: Does the patient need only setup/clean-up assistance from one helper? No. WHEEL 50 FEET WITH TWO TURNS - STEP 3: Does the patient need only verbal/nonverbal cueing or touching/steadying/contact guard assistance fro m one helper? Yes. 1. [id number] ADMISSION PERFORMANCE: Supervision or touching assistance CODE: 04 INDICATE THE TYPE OF WHEELCHAIR/SCOOTER USED: RR1. INDICATE THE TYPE OF WHEELCHAIR/SCOOTER USED.: Manual CODE: 1 WHEEL 150 FEET: WHEEL 150 FEET - STEP 1: Does the patient complete the activity by him/herself with no assistance (physical, verbal/nonverbal cueing, setup/clean-up)? No. WHEEL 150 FEET - STEP 2: Does the patient need only setup/clean-up assistance from one helper? No. WHEEL 150 FEET - STEP 3: Does the patient need only verbal/nonverbal cueing or touching/steadying/contact guard assistance fro m one helper? Yes. 1. [id number] ADMISSION PERFORMANCE: Supervision or touching assistance CODE: 04 INDICATE THE TYPE OF WHEELCHAIR/SCOOTER USED: SS1. INDICATE THE TYPE OF WHEELCHAIR/SCOOTER USED.: Manual CODE: 1 BLADDER AND BOWEL: H350. BLADDER CONTINENCE (3-DAY ASSESSMENT PERIOD): Always continent (no documented incontinence) CODE: 0 H400. BOWEL CONTINENCE (3-DAY ASSESSMENT PERIOD): Always continent CODE: 0 SIGNATURE PANEL: The following modified sections: 1. [id number] Admission Performance, 1. [id number] Admission Performance, 1. [id number] Admission Performance, 1. [id number] Admission Performance, 1. [id number] Admission Performance, 1. [id number] Admission Performance, 1. [id number] Admission Performance, 1. [id number] Admission Performance , 1. [id number] Admission Performance, 1. [id number] Admission Performance, 1. [id number] Admission Performanc e, 1. [id number] Admission Performance, Q1. Does the patient use a wheelchair/scooter?, 1. [id number] Admis daisha Performance, RR1. Indicate the type of wheelchair/scooter used., 1. [id number] Admission Performanc e, Code, SS1. Indicate the type of wheelchair/scooter used., H350. Bladder Continence (3-day assessme nt period), H400. Bowel Continence (3-day assessment period) were [electronically] signed by Justine Aguirre C.N.ADary on TueNov 05 2020 14:16:32 GMT-0500 (Central Daylight Time)
[2020-11-05] MEDS: ENOXAPARIN 40 MG/0.4 ML SQ SCH (16:22)
[2020-11-05] MEDS: ATORVASTATIN 10 MG TAB PO SCH (20:14)
[2020-11-05] MEDS: MELATONIN 3 MG TABLET PO PRN (20:14)
[2020-11-05] MEDS: SODIUM CHLORIDE OPTH SCH (20:20)
[2020-11-06] MEDS: ACETAMINOPHEN 500 MG TAB PO PRN (06:49)
[2020-11-06] MEDS: INSULIN -REGULAR HUMAN 50 UNIT/0.5 ML ML SQ SCH ×4 (07:18→20:18)
[2020-11-06] MEDS: LABETALOL HCL 100 MG TAB PO SCH (08:00)
[2020-11-06] MEDS: acetaZOLAMIDE 250 MG TAB PO SCH ×2 (08:42→20:16)
[2020-11-06] MEDS: PANTOPRAZOLE 40MG TABLET PO SCH ×2 (08:42→17:07)
[2020-11-06] MEDS: ASPIRIN EC 81 MG TAB PO SCH (08:43)
[2020-11-06] MEDS: ACYCLOVIR 400 MG TABLET PO SCH ×5 (08:45→20:19)
[2020-11-06] MEDS: carBAMazepine 200 MG TAB PO SCH ×2 (08:45→20:18)
[2020-11-06] MEDS: ENOXAPARIN 40 MG/0.4 ML SQ SCH (16:34)
--- NOTE | 2020-11-06 17:44 | PAPE ---
POST ADMISSION PHYSICIAN EVALUATION PATIENT: [facility] MR# [id number] REFERRING DOCTOR jenna Guidry EVALUATION DATE AND TIME 11/06/2020 17:42 (CDT) NAME GIOVANNY HARRISON DATE OF 1975 AGE 45 PHONE N# [id number] GENDER female EVALUATING PHYSICIAN Dr. Freddie Dee M.D. ADMISSION DIAGNOSIS: CVA ONSET DATE 10/28/2020 POST-ADMISSION FUNCTIONAL/MEDICAL STATUS: - Bladder Same accident frequency: 7-Ind - No accidents in the past 7 days - Bowel Same accident frequency: 7-Ind - No accidents in the past 7 days - Walking Same score based on distance walked: 0(N/A) Same score based on distance walked: 1(<=50ft) - Wheelchair Same score based on distance traveled: 0(N/A) STATUS CHANGE EVALUATION: No change in Functional or Medical Status is identified compared with Pre-Admission screening. PATIENT NEEDS CLOSE MEDICAL SUPERVISION BY A REHABILITATION PHYSICIAN FOR: Coordination of Treatment Team PATIENT REQUIRES 24X7 REHAB NURSING FOR MEDICAL AND FUNCTIONAL MGT. OF THE FOLLOWING DEFICITS: Disease Management Medication Management Patient/Family Education Providing Safe Environment PATIENT REQUIRES INTENSIVE, COORDINATED INTERDISCIPLINARY APPROACH TO REHAB: Arranging Home Equipment/Services Discharge Planning Family Intervention/Training Screedman/Case Management LIST OF IDENTIFIED AND POTENTIAL PROBLEMS: Alteration in leisure activities Bladder, Incontinence Bowel, Incontinence Infection, Actual or Potential Mobility Impaired Pain, Alteration in Comfort Self Care Deficit Skin Integrity, Actual or Potential Urinary Tract Infection (UTI), Actual or Potential PATIENT COULD BE AT RISK FOR COMPLICATIONS FROM ADVERSE MEDICAL CONDITIONS DUE TO HIS/HER COMORBIDITI ES AND THE RIGORS OF THE INTENSIVE REHABILLITATION PROGRAM. METHODS OR INTERVENTIONS TO AVOID COMPLIC ATIONS INCLUDE: - Bleeding Stroke patients assessed for lethargy or change in status. - Infection Clinical staff to assess and manage the signs and symptoms of infection including fever, redness, war mth, etc. - Urinary Tract Infection - Aspiration Clinical staff will assess and manage coughing, drooling, congestion. - Falls Patient will be evaluated for Fall Precautions and will be placed on Fall Precautions as indicated pe r protocol. - Skin Breakdown Nursing will assess skin daily using assessment tool and will place on Skin Breakdown Precautions as indicated per protocol. - Pain Clinical staff may employ non-medication methods such as massage, distraction, decrease stimulus, etc . as needed. Clinical staff will assess patient's pain level every shift per protocol to assess and e nsure pain management effectiveness. Medications will be given and the pain level re-assessed. PRELIMINARY PLAN OF CARE: - Physical Therapy Patient needs Physical Therapy for a daily minimum of 1.5 hours at least 5 out of 7 days, to improve: Mobility, Strengthening, Transfers, Stretching, ROM, Endurance, Ability to manage stairs, Gait, and Balance. - Speech Therapy Patient needs Speech Therapy for a daily minimum of 0.5 hours at least 5 out of 7 days, to improve: S wallowing, Cognition, Language Skills, and Compensatory Strategies. - Rehabilitation Nursing Patient requires 24x7 Rehabilitation Nursing for: Pain Issues, Identifying and preventing risk factor s, Monitoring and reporting current medical conditions, Assisting with ambulation and transfer, Kd ting with all ADL-s, Teaching patients about disease process and medications, Family teaching, Provid ing safe environment, Bowel and Bladder Issues, Skin Integrity, and Medication Management. Patient needs Screedman and/or Case Management for: Discharge Planning, Arranging Home Equipmen t or Services, and Family Interventions. - Dietary and Nutrition Services Patient needs Dietary and Nutrition Services for: Adequate Nutrition, Nutritional Supplements, and Nu tritional Education. - Occupational Therapy Patient needs Occupational Therapy for a daily minimum of 1.5 hours at least 5 out of 7 days, to impr ove Activities of Daily Living, including: Eating, Grooming, Bathing, Dressing, Toileting, Toilet Tra nsfers, Community Reintegration, Higher functional activities, Adaptive Equipment, Splinting, Househo ld Tasks, and Other activities as determined. QI SCORES: - Self-Care A. Eating 03-Partial/moderate assistance B. Oral hygiene 03-Partial/moderate assistance C. Toileting hygiene 03-Partial/moderate assistance E. Shower/bathe self 02-Substantial/maximal assistance F. Upper body dressing 03-Partial/moderate assistance G. Lower body dressing 03-Partial/moderate assistance H. Putting on/taking off footwear 03-Partial/moderate assistance - Mobility A. Roll left and right 03-Partial/moderate assistance B. Sit to lying 03-Partial/moderate assistance C. Lying to sitting on side of bed 03-Partial/moderate assistance D. Sit to stand 03-Partial/moderate assistance E. Chair/hsh-eh-duqat transfer 03-Partial/moderate assistance F. Toilet transfer 03-Partial/moderate assistance G. Car transfer 88-Not attempted due to medical condition or safety concerns I. Walk 10 feet 88-Not attempted due to medical condition or safety concerns J. Walk 50 feet with two turns 88-Not attempted due to medical condition or safety concerns K. Walk 150 feet 88-Not attempted due to medical condition or safety concerns L. Walking 10 feet on uneven surfaces 88-Not attempted due to medical condition or safety concerns M. 1 step (curb) 88-Not attempted due to medical condition or safety concerns N. 4 steps 88-Not attempted due to medical condition or safety concerns O. 12 steps 88-Not attempted due to medical condition or safety concerns P. Picking up object 88-Not attempted due to medical condition or safety concerns R. Wheel 50 feet with two turns 88-Not attempted due to medical condition or safety concerns S. Wheel 150 feet 88-Not attempted due to medical condition or safety concerns - Bladder and Bowel Bladder continence Bowel continence - Endurance Fair - Balance Fair - Safety Awareness Fair POTENTIAL FUNCTIONAL GOALS FOR PATIENT TO ACHIEVE BY DISCHARGE: - Safety Precaution Patient will remain free from falls or injury at time of discharge. - Bed Mobility Patient will perform bed mobility at 4-Sanaz level of assistance. - Transfers Patient will complete transfers from bed to chair at 4-Sanaz level of assistance. - Mobility Patient will ambulate 150 ft with 4-Sanaz level of assistance with RW. PATIENT REHAB POTENTIAL Caren HARRISON is able and expected to receive 3 hours of individualized therapy daily on at least 5 of e very 7 days Carne HARRISON's prognosis for significant practical improvement within a reasonable period of time appea rs Good Expected level of measurable improvement will be of a practical value to Caren HARRISON's functional capa city or adaptations to impairments Has a viable Discharge Plan Medically appropriate; condition is sufficiently stable to participate in intensive rehab program DISCHARGE PLAN: - Estimated Length of Stay (days) 17. - Consensus on plan Discharge plan has been discussed with primary caregiver. Patient/Family is in agreement with the reno n. Primary caregiver is in agreement with the plan. - Patient/Family Goals Return home independently. - Planned Living Setting Upon Discharge Home, to live with Family/Relatives. Transitional Living. CONCLUSION ON REHABILITATION NECESSITY: I have evaluated patient's pre-admission functional status and, comparing it to the patient's post-ad mission functional status now, I conclude that the pre-admission assessment was accurate. Patient's c ondition on admission supports the medical necessity of admission to IRF. It is safe to proceed with patient's therapy program. SIGNATURE PANEL: (CDT)
--- NOTE | 2020-11-06 17:59 | R.PN ---
PROGRESS NOTES ENCOUNTER DATE AND TIME: 11/06/2020 17:48 (CDT) NAME GIOVANNY HARRISON DATE OF : 1975 DATE OF ADMISSION: 11/04/2020 16:46 (CDT) CVACHIEF COMPLAINT: Right sided weakness from left subcortical stroke. SUBJECTIVE: Pt denied any depression. Pt denied any Shortness of Breath. VITAL SIGNS Temperature: 98.6 F SBP/DBP: 119/65 Pulse: 66 Resp: 16 MEDICATION ALLERGIES: No Known Drug Allergies (NKDA) ENVIRONMENTAL ALLERGIES: - Substance Allergies None Known - Other Allergies None Known NURSING: - Shower allowing shower - Bladder care per protocol - Skin care per protocol PRECAUTIONS: - Weight Bearing Precaution WBAT right LE ACTIVITIES OOB only with supervision THERAPIES: - Occupational Therapy Cognitive Retraining. Visual Perceptual Training. - Dietary and Nutrition Adequate Nutrition. Nutritional Education. Nutritional Supplements. - Speech Therapy Cognitive Training. Expressive Language Skills. Memory Strategies. Receptive Language Skills. Speech Intelligibility Training. PHYSICAL EXAM - Gen Alert and awake Lying in bed No apparent distress Oriented to: person, time, and place - Skin No breakdown Normacephalic - Eyes No abnormalities - ENMT No abnormalities - Neck No abnormalities - CVS RRR - Chest Clear - Abd + bowel sounds - GI Obese Deferred - No abnormalities - Ext Moderate edema in both lower extremities. - MSK .4+/5 weakness in right upper and lower extremities. Decreased sensation in the right upper and lower extremity. - Neuro 4/5 right upper extremity and 4/5 right lower extremity weakness. Decreased to light touch and temper ature in the right. - Psych Mild depression. ASSESSMENT: Pt. is a 45 yo Right-handed female of unknown race.On 10/28/2020 Pt. presented to [facility] with sudden onset of right-side weakness.On 10/28/2020 she was admitted to [facility] with diagnosis CVA.Her impairment category is Stroke 01 - Right Body (Left Brain) (01 .2).Pre-morbidly, Pt. was independent/mod-I in Sphincter Control, Self-Care, Transfers Control, and B alance; and she had good Endurance and Locomotion.Currently, she has deficits of Safety Awareness, Ba edmundo, Sphincter Control, Transfers Control, Endurance, and Locomotion.Pt. is now referred to [facility] for acute in-patient rehabilitation in order to maximize patient's functio nal independence in activities of daily living, strength, ROM, and mobility.- Rehab Goal Patient has realistic goal of being discharged at assistance level 7-Ind to reside at Home with Fami ly/Relatives. MDM/PLAN: - Physical Therapy Gait dysfunction - to improve, our physical therapists will perform initial evaluation of pt's statu s upon admission and devise an individualized program for Gait Training, and Wheel Chair mobility Inability to transfer - to improve, our physical therapists will perform initial evaluation of pt's status upon admission and devise an individualized program for Bed mobility Need for home safety evaluation - to improve, our physical therapists will perform initial evaluatio n of pt's status upon admission and devise an individualized program for Home Evaluation Need in caregiver upon discharge - to improve, our physical therapists will perform initial evaluati on of pt's status upon admission and devise an individualized program for Caregiver Training New precaution - to improve, our physical therapists will perform initial evaluation of pt's status upon admission and devise an individualized program for Patient precaution education Poor balance - to improve, our physical therapists will perform initial evaluation of pt's status up on admission and devise an individualized program for Balance Training Poor endurance - to improve, our physical therapists will perform initial evaluation of pt's status upon admission and devise an individualized program for Endurance Training Weakness - to improve, our physical therapists will perform initial evaluation of pt's status upon a dmission and devise an individualized program for Aquatic Therapy, Neuromuscular Reeducation, and Str engthening Achieving independence - to improve, our physical therapists will perform initial evaluation of pt's status upon admission and devise an individualized program for Community Reintegration Activities - Occupational Therapy 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 - to improve, our occupation therapists will perform initial evaluation of pt's status upon admission and devise an individualized program for Caregiver Training Weakness - to improve, our occupation therapists will perform initial evaluation of pt's status upon admission and devise an individualized program for Aquatic Therapy, Balance, Endurance, UE ROM, and UE strengthening - Other See attached MAR (Medication Administration Record) - Diet Type Continue Regular - Diet - Liquid Texture Continue Regular - Tube Feed Continue N/A - Bladder care per protocol - Weight Bearing Precaution WBAT right LE - Skin care per protocol - Diet - Solid Texture Continue Regular - Shower allowing shower for Dementia, TBI, Stroke, or others FUNCTIONAL STATUS: UPDATED AT WEEKLY TEAM CONFERENCE - Bladder Same accident frequency: 7-Ind - No accidents in the past 7 days - Bowel Same accident frequency: 7-Ind - No accidents in the past 7 days - Walking Same score based on distance walked: 0(N/A) Same score based on distance walked: 1(<=50ft) - Wheelchair Same score based on distance traveled: 0(N/A) FUNCTIONAL STATUS: - Self-Care A. Eating Ester B. Grooming Ester C. Bathing Sanaz D. Dressing - Upper sup E. Dressing - Lower sup F. Toileting Ester - Sphincter Control G. Bladder control Ester H. Bowel control Ester - Transfers Control I. Bed/Chair/Wheelchair Sanaz J. Toilet sup K. Tub/Shower Sanaz - Locomotion L. Walk/Wheelchair (B) sup M. Stairs ADNO - Communication N. Comprehension (B) Ester O. Expression (B) Ester - Social Cognition P. Social Interaction Ester Q. Problem Solving sup R. Memory Ester - Endurance Good - Balance Fair - Safety Awareness Good QI SCORES: - Self-Care A. Eating 03-Partial/moderate assistance B. Oral hygiene 03-Partial/moderate assistance C. Toileting hygiene 03-Partial/moderate assistance E. Shower/bathe self 02-Substantial/maximal assistance F. Upper body dressing 03-Partial/moderate assistance G. Lower body dressing 03-Partial/moderate assistance H. Putting on/taking off footwear 03-Partial/moderate assistance - Mobility A. Roll left and right 03-Partial/moderate assistance B. Sit to lying 03-Partial/moderate assistance C. Lying to sitting on side of bed 03-Partial/moderate assistance D. Sit to stand 03-Partial/moderate assistance E. Chair/fbi-rg-sximm transfer 03-Partial/moderate assistance F. Toilet transfer 03-Partial/moderate assistance G. Car transfer 88-Not attempted due to medical condition or safety concerns I. Walk 10 feet 88-Not attempted due to medical condition or safety concerns J. Walk 50 feet with two turns 88-Not attempted due to medical condition or safety concerns K. Walk 150 feet 88-Not attempted due to medical condition or safety concerns L. Walking 10 feet on uneven surfaces 88-Not attempted due to medical condition or safety concerns M. 1 step (curb) 88-Not attempted due to medical condition or safety concerns N. 4 steps 88-Not attempted due to medical condition or safety concerns O. 12 steps 88-Not attempted due to medical condition or safety concerns P. Picking up object 88-Not attempted due to medical condition or safety concerns R. Wheel 50 feet with two turns 88-Not attempted due to medical condition or safety concerns S. Wheel 150 feet 88-Not attempted due to medical condition or safety concerns - Bladder and Bowel Bladder continence Bowel continence - Endurance Fair - Balance Fair - Safety Awareness Fair [facility]RENT [facility]. DEFICITS: Self-Care, Mobility, Endurance, Balance, and Safety Awareness SIGNATURE PANEL: (CDT)
[2020-11-06] MEDS: ATORVASTATIN 10 MG TAB PO SCH (20:17)
[2020-11-06] MEDS: SODIUM CHLORIDE OPTH SCH (20:20)
[2020-11-07] MEDS: INSULIN -REGULAR HUMAN 50 UNIT/0.5 ML ML SQ SCH ×4 (07:30→21:00)
[2020-11-07] MEDS: LABETALOL HCL 100 MG TAB PO SCH (08:00)
[2020-11-07] MEDS: acetaZOLAMIDE 250 MG TAB PO SCH ×2 (08:33→21:01)
[2020-11-07] MEDS: ACYCLOVIR 400 MG TABLET PO SCH ×5 (08:34→21:04)
[2020-11-07] MEDS: PANTOPRAZOLE 40MG TABLET PO SCH ×2 (08:34→16:24)
[2020-11-07] MEDS: ASPIRIN EC 81 MG TAB PO SCH (08:35)
[2020-11-07] MEDS: carBAMazepine 200 MG TAB PO SCH ×2 (08:35→21:02)
--- NOTE | 2020-11-07 09:53 | P.RH.PN ---
Estimated Length of Stay: 15 Expected Discharge Date: 11/18/20 Discharge Disposition Plan: Home Family Support: Yes Care Home Goal: Mobility, Transfers, Self Care Vital Signs: Last Vital Signs Temp 96.9 F 11/07/20 08:24 Pulse 63 11/07/20 08:24 Resp 18 11/07/20 08:24 BP 106/55 L 11/07/20 08:24 Pulse Ox 100 11/07/20 08:24 Laboratory: Laboratory Last Values WBC 6.20 K/uL (4.3-10.9) 11/05/20 06:21 RBC 3.75 M/uL (3.86-4.86) L 11/05/20 06:21 Hgb 11.0 g/dL (12.0-15.0) L 11/05/20 06:21 Hct 33.9 % (36.0-45.0) L 11/05/20 06:21 MCV 90.4 fL (80-100) 11/05/20 06:21 MCH 29.2 pg (27.0-35.0) 11/05/20 06:21 MCHC 32.3 g/dL (32.0-36.0) 11/05/20 06:21 RDW 14.6 % (12.1-15.2) 11/05/20 06:21 Plt Count 186 K/uL (152-406) 11/05/20 06:21 MPV 10.0 fL (7.6-11.3) 11/05/20 06:21 Neutrophils % 66.6 % (41.7-73.7) 11/05/20 06:21 Lymphocytes % 25.0 % (15.3-44.8) 11/05/20 06:21 Monocytes % 5.3 % (3.3-12.3) 11/05/20 06:21 Eosinophils % 2.8 % (0-4.4) 11/05/20 06:21 Basophils % 0.3 % (0-1.3) 11/05/20 06:21 Absolute Neutrophils 4.1 K/uL (1.8-8.0) 11/05/20 06:21 Absolute Lymphocytes 1.5 K/uL (0.7-4.9) 11/05/20 06:21 Absolute Monocytes 0.3 K/uL (0.1-1.3) 11/05/20 06:21 Absolute Eosinophils 0.2 K/uL (0-0.5) 11/05/20 06:21 Absolute Basophils 0.0 K/uL (0-0.5) 11/05/20 06:21 Sodium 145 mmol/L (136-145) 11/05/20 06:21 Potassium 3.7 mmol/L (3.5-5.1) 11/05/20 06:21 Chloride 117 mmol/L (98-107) H 11/05/20 06:21 Carbon Dioxide 22 mmol/L (21-32) 11/05/20 06:21 BUN 17 mg/dL (7-18) 11/05/20 06:21 Creatinine 0.54 mg/dL (0.55-1.3) L 11/05/20 06:21 Estimated GFR > 90 mL/min (=/>90) 11/05/20 06:21 Glucose 122 mg/dL (74-106) H 11/05/20 06:21 POC Glucose 125 mg/dL (65-120) H 11/07/20 07:37 Calcium 8.2 mg/dL (8.5-10.1) L 11/05/20 06:21 Magnesium 2.2 mg/dL (1.8-2.4) 11/05/20 06:21 Albumin 2.9 g/dL (3.4-5.0) L 11/05/20 06:21 Prealbumin 17.7 mg/dL (20-40) L 11/05/20 06:21 Urine Color Yellow (Yellow) 11/05/20 01:13 Urine Appearance Clear (Clear) 11/05/20 01:13 Urine pH 6.0 (5.0-7.0) 11/05/20 01:13 Ur Specific [place] 1.025 (1.005-1.030) 11/05/20 01:13 Glucose (UA)(Auto) Negative (Negative) 11/05/20 01:13 Urine Ketones Negative (Negative) 11/05/20 01:13 Urine Blood Negative (Negative) 11/05/20 01:13 Urine Nitrite Negative (Negative) 11/05/20 01:13 Urine Bilirubin Negative (Negative) 11/05/20 01:13 Urine Urobilinogen 0.2 mg/dL (0.2-1.0) 11/05/20 01:13 Ur Leukocyte Esterase Negative (Negative) 11/05/20 01:13 Urine RBC <5 /HPF (NONE SEEN) 11/05/20 01:13 Urine WBC <5 /HPF (<5) 11/05/20 01:13 Ur Squamous Epith Cells <5 /HPF (NONE SEEN) 11/05/20 01:13 Ur Urothelial Cells Cancelled 11/04/20 21:04 Calcium Oxalate Crystal Cancelled 11/04/20 21:04 Uric Acid Crystals Cancelled 11/04/20 21:04 Triple Phos Crystals Cancelled 11/04/20 21:04 Other Crystals Cancelled 11/04/20 21:04 Amorphous Sediment Cancelled 11/04/20 21:04 Glitter Cells Cancelled 11/04/20 21:04 Urine Bacteria <20 /HPF (<20) 11/05/20 01:13 Hyaline Casts Cancelled 11/04/20 21:04 Fine Granular Casts Cancelled 11/04/20 21:04 Coarse Granular Casts Cancelled 11/04/20 21:04 Waxy Casts Cancelled 11/04/20 21:04 RBC Casts Cancelled 11/04/20 21:04 WBC Casts Cancelled 11/04/20 21:04 Urine Mucus Cancelled 11/04/20 21:04 Urine Other Cancelled 11/04/20 21:04 Urine Trichomonas Cancelled 11/04/20 21:04 Urine Yeast Cancelled 11/04/20 21:04 Ur Yeast w Hyphae Cancelled 11/04/20 21:04 Urine Yeast (Budding) Cancelled 11/04/20 21:04 Urine Sperm Cancelled 11/04/20 21:04 Urine Culture Reflexed Not needed 11/05/20 01:13 Urine Total Volume Cancelled 11/04/20 21:04 Urine Total Protein Negative (Negative) 11/05/20 01:13 Weight: 362 lb Wound Present: No Closed Surgical Incision Present: No Negative Pressure Wound Therapy Present: No Physician Update: Labs are stable. She is making fair progress overall. Walking 250' with standby assistance. She is a moderate assistance with showers. She needs minumum assistance other ADLs like upper and lower body dressing. Functional Improvement: Patient is a new admitted patient to rehab floor, and is shows good work ethic and possibly for good progression. Patient is currently SBA w/ transfers and gait tx. 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 Please see the Rehabilitation Signature page for all necessary signatures.
[2020-11-07] MEDS: LIDOCAINE 4% PATCH TOP SCH (10:14)
[2020-11-07] MEDS: ENOXAPARIN 40 MG/0.4 ML SQ SCH (16:25)
[2020-11-07] MEDS: SODIUM CHLORIDE OPTH SCH (21:00)
[2020-11-07] MEDS: ATORVASTATIN 10 MG TAB PO SCH (21:02)
[2020-11-07] MEDS: DOCUSATE NA/SENNA CONC 1 TAB PO PRN (21:05)
[2020-11-07] MEDS: MELATONIN 3 MG TABLET PO PRN (21:05)
[2020-11-08] MEDS: INSULIN -REGULAR HUMAN 50 UNIT/0.5 ML ML SQ SCH ×3 (07:05→19:52)
[2020-11-08] MEDS: LIDOCAINE 4% PATCH TOP SCH (08:09)
[2020-11-08] MEDS: acetaZOLAMIDE 250 MG TAB PO SCH ×2 (08:10→19:17)
[2020-11-08] MEDS: PANTOPRAZOLE 40MG TABLET PO SCH ×2 (08:10→17:14)
[2020-11-08] MEDS: ASPIRIN EC 81 MG TAB PO SCH (08:10)
[2020-11-08] MEDS: carBAMazepine 200 MG TAB PO SCH ×2 (08:11→19:17)
[2020-11-08] MEDS: ACYCLOVIR 400 MG TABLET PO SCH ×5 (08:11→19:17)
[2020-11-08] MEDS: LABETALOL HCL 100 MG TAB PO SCH (10:11)
[2020-11-08] MEDS: ENOXAPARIN 40 MG/0.4 ML SQ SCH (17:14)
[2020-11-08] MEDS: MELATONIN 3 MG TABLET PO PRN (19:17)
[2020-11-08] MEDS: ATORVASTATIN 10 MG TAB PO SCH (19:17)
[2020-11-08] MEDS: SODIUM CHLORIDE OPTH SCH (19:18)
[2020-11-09] MEDS: ACETAMINOPHEN 500 MG TAB PO PRN (04:40)
[2020-11-09] MEDS: PANTOPRAZOLE 40MG TABLET PO SCH ×2 (06:59→16:26)
[2020-11-09] MEDS: LIDOCAINE 4% PATCH TOP SCH (06:59)
[2020-11-09] MEDS: INSULIN -REGULAR HUMAN 50 UNIT/0.5 ML ML SQ SCH ×2 (08:00→20:00)
[2020-11-09] MEDS: LABETALOL HCL 100 MG TAB PO SCH (08:00)
[2020-11-09] MEDS: acetaZOLAMIDE 250 MG TAB PO SCH ×2 (08:07→19:04)
[2020-11-09] MEDS: ASPIRIN EC 81 MG TAB PO SCH (08:08)
[2020-11-09] MEDS: carBAMazepine 200 MG TAB PO SCH ×2 (08:09→19:04)
[2020-11-09] MEDS: ACYCLOVIR 400 MG TABLET PO SCH ×5 (08:09→19:05)
[2020-11-09] MEDS: ENOXAPARIN 40 MG/0.4 ML SQ SCH (16:26)
[2020-11-09] MEDS: MELATONIN 3 MG TABLET PO PRN (19:04)
[2020-11-09] MEDS: ATORVASTATIN 10 MG TAB PO SCH (19:05)
[2020-11-09] MEDS: SODIUM CHLORIDE OPTH SCH (19:05)
[2020-11-10] MEDS: INSULIN -REGULAR HUMAN 50 UNIT/0.5 ML ML SQ SCH ×2 (08:00→20:00)
[2020-11-10] MEDS: LABETALOL HCL 100 MG TAB PO SCH (08:00)
[2020-11-10] MEDS: LIDOCAINE 4% PATCH TOP SCH (08:07)
[2020-11-10] MEDS: carBAMazepine 200 MG TAB PO SCH ×2 (08:08→20:56)
[2020-11-10] MEDS: ASPIRIN EC 81 MG TAB PO SCH (08:08)
[2020-11-10] MEDS: ACYCLOVIR 400 MG TABLET PO SCH ×5 (08:08→20:57)
[2020-11-10] MEDS: PANTOPRAZOLE 40MG TABLET PO SCH ×2 (08:15→16:47)
[2020-11-10] MEDS: acetaZOLAMIDE 250 MG TAB PO SCH ×2 (10:34→20:55)
--- NOTE | 2020-11-10 16:18 | FAST ---
[employer] FORM SHIFT START DATE/TIME: 11/10/2020 07:00 (CDT) SHIFT END DATE/TIME: 11/10/2020 19:00 (CDT) NAME GIOVANNY HARRISON DATE OF : 1975 DATE OF ADMISSION: 11/04/2020 16:46 (CDT) PHONE: AGE: 45 N# [id number] GENDER: Female ENCOUNTER PHYSICIAN: Dr. Freddie Dee M.D. ADMISSION DIAGNOSIS: - Stroke 01 - Right Body (Left Brain) (01.2) CVA. EATING: EATING - STEP 1: Does the patient complete the activity by him/herself with no assistance (physical, verbal/nonverbal cueing, setup/clean-up)? No. EATING - STEP 2: Does the patient need only setup/clean-up assistance from one helper? Yes. 1. [id number] ADMISSION PERFORMANCE: Setup or clean-up assistance CODE: 05 ORAL HYGIENE: ORAL HYGIENE - STEP 1: Does the patient complete the activity by him/herself with no assistance (physical, verbal/nonverbal cueing, setup/clean-up)? No. ORAL HYGIENE - STEP 2: Does the patient need only setup/clean-up assistance from one helper? Yes. 1. [id number] ADMISSION PERFORMANCE: Setup or clean-up assistance CODE: 05 TOILETING HYGIENE: TOILETING HYGIENE - STEP 1: Does the patient complete the activity by him/herself with no assistance (physical, verbal/nonverbal cueing, setup/clean-up)? No. TOILETING HYGIENE - STEP 2: Does the patient need only setup/clean-up assistance from one helper? Yes. 1. [id number] ADMISSION PERFORMANCE: Setup or clean-up assistance CODE: 05 BATHING: Not assessed/no information CODE: - DRESSING - UPPER BODY: DRESSING - UPPER BODY - STEP 1: Does the patient complete the activity by him/herself with no assistance (physical, verbal/nonverbal cueing, setup/clean-up)? No. DRESSING - UPPER BODY - STEP 2: Does the patient need only setup/clean-up assistance from one helper? Yes. 1. [id number] ADMISSION PERFORMANCE: Setup or clean-up assistance CODE: 05 DRESSING - LOWER BODY: DRESSING - LOWER BODY - STEP 1: Does the patient complete the activity by him/herself with no assistance (physical, verbal/nonverbal cueing, setup/clean-up)? No. DRESSING - LOWER BODY - STEP 2: Does the patient need only setup/clean-up assistance from one helper? Yes. 1. [id number] ADMISSION PERFORMANCE: Setup or clean-up assistance CODE: 05 PUTTING ON/TAKING OFF FOOTWEAR: FOOTWEAR - STEP 1: Does the patient complete the activity by him/herself with no assistance (physical, verbal/nonverbal cueing, setup/clean-up)? No. FOOTWEAR - STEP 2: Does the patient need only setup/clean-up assistance from one helper? Yes. 1. [id number] ADMISSION PERFORMANCE: Setup or clean-up assistance CODE: 05 ROLL LEFT AND RIGHT: ROLL LEFT AND RIGHT - STEP 1: Does the patient complete the activity by him/herself with no assistance (physical, verbal/nonverbal cueing, setup/clean-up)? No. ROLL LEFT AND RIGHT - STEP 2: Does the patient need only setup/clean-up assistance from one helper? Yes. 1. [id number] ADMISSION PERFORMANCE: Setup or clean-up assistance CODE: 05 SIT TO LYING: SIT TO LYING - STEP 1: Does the patient complete the activity by him/herself with no assistance (physical, verbal/nonverbal cueing, setup/clean-up)? No. SIT TO LYING - STEP 2: Does the patient need only setup/clean-up assistance from one helper? Yes. 1. [id number] ADMISSION PERFORMANCE: Setup or clean-up assistance CODE: 05 LYING TO SITTING: LYING TO SITTING ON SIDE OF BED - STEP 1: Does the patient complete the activity by him/herself with no assistance (physical, verbal/nonverbal cueing, setup/clean-up)? No. LYING TO SITTING ON SIDE OF BED - STEP 2: Does the patient need only setup/clean-up assistance from one helper? Yes. 1. [id number] ADMISSION PERFORMANCE: Setup or clean-up assistance CODE: 05 SIT TO STAND: SIT TO STAND - STEP 1: Does the patient complete the activity by him/herself with no assistance (physical, verbal/nonverbal cueing, setup/clean-up)? No. SIT TO STAND - STEP 2: Does the patient need only setup/clean-up assistance from one helper? Yes. 1. [id number] ADMISSION PERFORMANCE: Setup or clean-up assistance CODE: 05 TRANSFERS: BED, CHAIR: CHAIR/[id number] TRANSFER - STEP 1: Does the patient complete the activity by him/herself with no assistance (physical, verbal/nonverbal cueing, setup/clean-up)? No. CHAIR/[id number] TRANSFER - STEP 2: Does the patient need only setup/clean-up assistance from one helper? Yes. 1. [id number] ADMISSION PERFORMANCE: Setup or clean-up assistance CODE: 05 TRANSFER TOILET: TOILET TRANSFER - STEP 1: Does the patient complete the activity by him/herself with no assistance (physical, verbal/nonverbal cueing, setup/clean-up)? No. TOILET TRANSFER - STEP 2: Does the patient need only setup/clean-up assistance from one helper? Yes. 1. [id number] ADMISSION PERFORMANCE: Setup or clean-up assistance CODE: 05 TRANSFERS: CAR: Not assessed/no information CODE: - WALK 10 FEET: Not assessed/no information CODE: - 1 STEP (CURB): Not assessed/no information CODE: - PICKING UP OBJECT: Not assessed/no information CODE: - DOES THE PATIENT USE A WHEELCHAIR/SCOOTER? Q1. DOES THE PATIENT USE A WHEELCHAIR/SCOOTER?: Yes CODE: 1 WHEEL 50 FEET WITH TWO TURNS: WHEEL 50 FEET WITH TWO TURNS - STEP 1: Does the patient complete the activity by him/herself with no assistance (physical, verbal/nonverbal cueing, setup/clean-up)? No. WHEEL 50 FEET WITH TWO TURNS - STEP 2: Does the patient need only setup/clean-up assistance from one helper? Yes. 1. [id number] ADMISSION PERFORMANCE: Setup or clean-up assistance CODE: 05 INDICATE THE TYPE OF WHEELCHAIR/SCOOTER USED: RR1. INDICATE THE TYPE OF WHEELCHAIR/SCOOTER USED.: Manual CODE: 1 WHEEL 150 FEET: WHEEL 150 FEET - STEP 1: Does the patient complete the activity by him/herself with no assistance (physical, verbal/nonverbal cueing, setup/clean-up)? No. WHEEL 150 FEET - STEP 2: Does the patient need only setup/clean-up assistance from one helper? Yes. 1. [id number] ADMISSION PERFORMANCE: Setup or clean-up assistance CODE: 05 INDICATE THE TYPE OF WHEELCHAIR/SCOOTER USED: SS1. INDICATE THE TYPE OF WHEELCHAIR/SCOOTER USED.: Manual CODE: 1 BLADDER AND BOWEL: H350. BLADDER CONTINENCE (3-DAY ASSESSMENT PERIOD): Always continent (no documented incontinence) CODE: 0 H400. BOWEL CONTINENCE (3-DAY ASSESSMENT PERIOD): Always continent CODE: 0 SIGNATURE PANEL: The following modified sections: 1. [id number] Admission Performance, 1. [id number] Admission Performance, 1. WI8581C Admission Performance, 1. GT2863c Admission Performance, 1. OA5513s Admission Performance, 1. EU3814q Admission Performance, 1. CI8052H Admission Performance, 1. [id number] Admission Performance , 1. [id number] Admission Performance, 1. [id number] Admission Performance, 1. [id number] Admission Performanc e, 1. LL5444A Admission Performance, Q1. Does the patient use a wheelchair/scooter?, 1. [id number] Admis daisha Performance, RR1. Indicate the type of wheelchair/scooter used., 1. [id number] Admission Performanc e, Code, SS1. Indicate the type of wheelchair/scooter used., H350. Bladder Continence (3-day assessme nt period), H400. Bowel Continence (3-day assessment period) were [electronically] signed by Grey [email or web address].Chapin on TueNov 10 2020 16:17:18 GMT-0500 (Central Daylight Time)
[2020-11-10] MEDS: ENOXAPARIN 40 MG/0.4 ML SQ SCH (16:48)
[2020-11-10] MEDS: [UNRECOGNIZED DRUG - OTHER] OPTH PRN (20:56)
[2020-11-10] MEDS: ATORVASTATIN 10 MG TAB PO SCH (20:56)
[2020-11-10] MEDS: SODIUM CHLORIDE OPTH SCH (20:57)
[2020-11-10] MEDS: DOCUSATE NA/SENNA CONC 1 TAB PO PRN (20:57)
[2020-11-10] MEDS: MELATONIN 3 MG TABLET PO PRN ×2 (20:59→22:36)
[2020-11-10] MEDS: ACETAMINOPHEN 500 MG TAB PO PRN (22:35)
[2020-11-11] MEDS: INSULIN -REGULAR HUMAN 50 UNIT/0.5 ML ML SQ SCH ×2 (07:32→20:00)
[2020-11-11] MEDS ORDERED: VASOPRESSIN 20 UNIT/ML VIAL ONE (07:46)
[2020-11-11] MEDS: LABETALOL HCL 100 MG TAB PO SCH (08:00)
[2020-11-11] MEDS: LIDOCAINE 4% PATCH TOP SCH (08:11)
[2020-11-11] MEDS: PANTOPRAZOLE 40MG TABLET PO SCH ×2 (08:11→17:19)
[2020-11-11] MEDS: ACYCLOVIR 400 MG TABLET PO SCH ×5 (08:12→20:52)
[2020-11-11] MEDS: ASPIRIN EC 81 MG TAB PO SCH (08:12)
[2020-11-11] MEDS: acetaZOLAMIDE 250 MG TAB PO SCH ×2 (08:12→20:51)
[2020-11-11] MEDS: carBAMazepine 200 MG TAB PO SCH ×2 (08:13→20:52)
--- NOTE | 2020-11-11 16:02 | RAD REPORT ---
EXAM DESCRIPTION: RAD - Chest Single View - 11/11/2020 3:48 pm CLINICAL HISTORY: COUGH COMPARISON: Portable February 2019 TECHNIQUE: AP portable chest image was obtained 11/11/2020 3:48 pm . FINDINGS: Lung volumes are low and there is very large body habitus affects limiting the examination . No peripheral mass or consolidation identified. Heart size and vasculature are within normal limits for exam limitations. No measurable pleural effusion and no pneumothorax. No acute bony abnormality seen. No acute aortic findings suspected. IMPRESSION: Significantly limited portable study without acute cardiopulmonary finding.
[2020-11-11] MEDS: ENOXAPARIN 40 MG/0.4 ML SQ SCH (17:20)
--- NOTE | 2020-11-11 20:08 | R.PN ---
PROGRESS NOTES ENCOUNTER DATE AND TIME: 11/11/2020 20:04 (CDT) NAME GIOVANNY HARRISON DATE OF : 1975 DATE OF ADMISSION: 11/04/2020 16:46 (CDT) CVACHIEF COMPLAINT: Right sided weakness from left subcortical stroke. SUBJECTIVE: Pt denied any depression. Pt denied any Shortness of Breath. WBC 6.2, Hgb 11.0, glucose 113 to 126. Chest x-ray shows no acute cardiopulmonary findings. Ambulated 350' with independence using a rolling walker. Up and down 6" and 8.5" platforms with stand by assistance. VITAL SIGNS Temperature: 97.9 F SBP/DBP: 119/68 Pulse: 68 Resp: 16 MEDICATION ALLERGIES: No Known Drug Allergies (NKDA) ENVIRONMENTAL ALLERGIES: - Substance Allergies None Known - Other Allergies None Known NURSING: - Shower allowing shower - Bladder care per protocol - Skin care per protocol PRECAUTIONS: - Weight Bearing Precaution WBAT right LE ACTIVITIES OOB only with supervision THERAPIES: - Occupational Therapy Cognitive Retraining. Visual Perceptual Training. - Dietary and Nutrition Adequate Nutrition. Nutritional Education. Nutritional Supplements. - Speech Therapy Cognitive Training. Expressive Language Skills. Memory Strategies. Receptive Language Skills. Speech Intelligibility Training. PHYSICAL EXAM - Gen Alert and awake Lying in bed No apparent distress Oriented to: person, time, and place - Skin No breakdown Normacephalic - Eyes No abnormalities - ENMT No abnormalities - Neck No abnormalities - CVS RRR - Chest Clear - Abd + bowel sounds - GI Obese Deferred - No abnormalities - Ext Moderate edema in both lower extremities. - MSK .4+/5 weakness in right upper and lower extremities. Decreased sensation in the right upper and lower extremity. - Neuro 4/5 right upper extremity and 4/5 right lower extremity weakness. Decreased to light touch and temper ature in the right. - Psych Mild depression. ASSESSMENT: Pt. is a 45 yo Right-handed female of unknown race.On 10/28/2020 Pt. presented to [facility] with sudden onset of right-side weakness.On 10/28/2020 she was admitted to [facility] with diagnosis CVA.Her impairment category is Stroke 01 - Right Body (Left Brain) (01 .2).Pre-morbidly, Pt. was independent/mod-I in Sphincter Control, Self-Care, Transfers Control, and B alance; and she had good Endurance and Locomotion.Currently, she has deficits of Safety Awareness, Ba edmundo, Sphincter Control, Transfers Control, Endurance, and Locomotion.Pt. is now referred to [facility] for acute in-patient rehabilitation in order to maximize patient's functio nal independence in activities of daily living, strength, ROM, and mobility.- Rehab Goal Patient has realistic goal of being discharged at assistance level 7-Ind to reside at Home with Fami ly/Relatives. MDM/PLAN: - Physical Therapy Gait dysfunction - to improve, our physical therapists will perform initial evaluation of pt's statu s upon admission and devise an individualized program for Gait Training, and Wheel Chair mobility Inability to transfer - to improve, our physical therapists will perform initial evaluation of pt's status upon admission and devise an individualized program for Bed mobility Need for home safety evaluation - to improve, our physical therapists will perform initial evaluatio n of pt's status upon admission and devise an individualized program for Home Evaluation Need in caregiver upon discharge - to improve, our physical therapists will perform initial evaluati on of pt's status upon admission and devise an individualized program for Caregiver Training New precaution - to improve, our physical therapists will perform initial evaluation of pt's status upon admission and devise an individualized program for Patient precaution education Poor balance - to improve, our physical therapists will perform initial evaluation of pt's status up on admission and devise an individualized program for Balance Training Poor endurance - to improve, our physical therapists will perform initial evaluation of pt's status upon admission and devise an individualized program for Endurance Training Weakness - to improve, our physical therapists will perform initial evaluation of pt's status upon a dmission and devise an individualized program for Aquatic Therapy, Neuromuscular Reeducation, and Str engthening Achieving independence - to improve, our physical therapists will perform initial evaluation of pt's status upon admission and devise an individualized program for Community Reintegration Activities - Occupational Therapy Need for toddler caregiver - to improve, our occupation therapists will perform initial evaluation of pt's status upon admission and devise an individualized program for Caregiver Training Weakness - to improve, our occupation therapists will perform initial evaluation of pt's status upon admission and devise an individualized program for Aquatic Therapy, Balance, Endurance, UE ROM, and UE strengthening - Other See attached MAR (Medication Administration Record) - Diet Type Continue Regular - Diet - Liquid Texture Continue Regular - Tube Feed Continue N/A - Bladder care per protocol - Weight Bearing Precaution WBAT right LE - Skin care per protocol - Diet - Solid Texture Continue Regular - Shower allowing shower for Dementia, TBI, Stroke, or others FUNCTIONAL STATUS: UPDATED AT WEEKLY TEAM CONFERENCE - Bladder Same accident frequency: 7-Ind - No accidents in the past 7 days - Bowel Same accident frequency: 7-Ind - No accidents in the past 7 days - Walking Same score based on distance walked: 0(N/A) Same score based on distance walked: 1(<=50ft) - Wheelchair Same score based on distance traveled: 0(N/A) FUNCTIONAL STATUS: - Self-Care A. Eating Ester B. Grooming Ester C. Bathing Sanaz D. Dressing - Upper sup E. Dressing - Lower sup F. Toileting Ester - Sphincter Control G. Bladder control Ester H. Bowel control Ester - Transfers Control I. Bed/Chair/Wheelchair Sanaz J. Toilet sup K. Tub/Shower Sanaz - Locomotion L. Walk/Wheelchair (B) sup M. Stairs ADNO - Communication N. Comprehension (B) Ester O. Expression (B) Ester - Social Cognition P. Social Interaction Ester Q. Problem Solving sup R. Memory Ester - Endurance Good - Balance Fair - Safety Awareness Good QI SCORES: - Self-Care A. Eating 03-Partial/moderate assistance B. Oral hygiene 03-Partial/moderate assistance C. Toileting hygiene 03-Partial/moderate assistance E. Shower/bathe self 02-Substantial/maximal assistance F. Upper body dressing 03-Partial/moderate assistance G. Lower body dressing 03-Partial/moderate assistance H. Putting on/taking off footwear 03-Partial/moderate assistance - Mobility A. Roll left and right 03-Partial/moderate assistance B. Sit to lying 03-Partial/moderate assistance C. Lying to sitting on side of bed 03-Partial/moderate assistance D. Sit to stand 03-Partial/moderate assistance E. Chair/pzh-lh-pidkc transfer 03-Partial/moderate assistance F. Toilet transfer 03-Partial/moderate assistance G. Car transfer 88-Not attempted due to medical condition or safety concerns I. Walk 10 feet 88-Not attempted due to medical condition or safety concerns J. Walk 50 feet with two turns 88-Not attempted due to medical condition or safety concerns K. Walk 150 feet 88-Not attempted due to medical condition or safety concerns L. Walking 10 feet on uneven surfaces 88-Not attempted due to medical condition or safety concerns M. 1 step (curb) 88-Not attempted due to medical condition or safety concerns N. 4 steps 88-Not attempted due to medical condition or safety concerns O. 12 steps 88-Not attempted due to medical condition or safety concerns P. Picking up object 88-Not attempted due to medical condition or safety concerns R. Wheel 50 feet with two turns 88-Not attempted due to medical condition or safety concerns S. Wheel 150 feet 88-Not attempted due to medical condition or safety concerns - Bladder and Bowel Bladder continence Bowel continence - Endurance Fair - Balance Fair - Safety Awareness Fair CURRENT [facility]. DEFICITS: Self-Care, Mobility, Endurance, Balance, and Safety Awareness SIGNATURE PANEL: (CDT)
[2020-11-11] MEDS: ATORVASTATIN 10 MG TAB PO SCH (20:51)
[2020-11-11] MEDS: MELATONIN 3 MG TABLET PO PRN (20:51)
[2020-11-11] MEDS: [UNRECOGNIZED DRUG - OTHER] OPTH PRN (20:54)
[2020-11-11] MEDS: SODIUM CHLORIDE OPTH SCH (21:00)
[2020-11-12] MEDS: PANTOPRAZOLE 40MG TABLET PO SCH ×2 (07:15→16:10)
[2020-11-12] MEDS: LABETALOL HCL 100 MG TAB PO SCH (08:00)
[2020-11-12] MEDS: INSULIN -REGULAR HUMAN 50 UNIT/0.5 ML ML SQ SCH ×2 (08:00→20:00)
[2020-11-12] MEDS: [UNRECOGNIZED DRUG - OTHER] OPTH PRN (08:04)
[2020-11-12] MEDS: acetaZOLAMIDE 250 MG TAB PO SCH ×2 (08:05→19:12)
[2020-11-12] MEDS: ASPIRIN EC 81 MG TAB PO SCH (08:05)
[2020-11-12] MEDS: ACYCLOVIR 400 MG TABLET PO SCH ×5 (08:05→20:34)
[2020-11-12] MEDS: carBAMazepine 200 MG TAB PO SCH ×2 (08:05→19:12)
[2020-11-12] MEDS: LIDOCAINE 4% PATCH TOP SCH (10:14)
[2020-11-12] MEDS: ENOXAPARIN 40 MG/0.4 ML SQ SCH (16:10)
--- NOTE | 2020-11-12 17:44 | R.PN ---
PROGRESS NOTES ENCOUNTER DATE AND TIME: 11/12/2020 17:40 (CDT) NAME GIOVANNY HARRISON DATE OF : 1975 DATE OF ADMISSION: 11/04/2020 16:46 (CDT) CVACHIEF COMPLAINT: Right sided weakness from left subcortical stroke. SUBJECTIVE: Pt denied any depression. Pt denied any Shortness of Breath. WBC 6.2, Hgb 11.0, glucose 107. Chest x-ray shows no acute cardiopulmonary findings. Ambulated 750' with independence using a rolling walker. Wheelchair mobilized 250' with modified inde pendence. VITAL SIGNS Temperature: 97.3 F SBP/DBP: 109/68 Pulse: 70 Resp: 15 MEDICATION ALLERGIES: No Known Drug Allergies (NKDA) ENVIRONMENTAL ALLERGIES: - Substance Allergies None Known - Other Allergies None Known NURSING: - Shower allowing shower - Bladder care per protocol - Skin care per protocol PRECAUTIONS: - Weight Bearing Precaution WBAT right LE ACTIVITIES OOB only with supervision THERAPIES: - Occupational Therapy Cognitive Retraining. Visual Perceptual Training. - Dietary and Nutrition Adequate Nutrition. Nutritional Education. Nutritional Supplements. - Speech Therapy Cognitive Training. Expressive Language Skills. Memory Strategies. Receptive Language Skills. Speech Intelligibility Training. PHYSICAL EXAM - Gen Alert and awake Lying in bed No apparent distress Oriented to: person, time, and place - Skin No breakdown Normacephalic - Eyes No abnormalities - ENMT No abnormalities - Neck No abnormalities - CVS RRR - Chest Clear - Abd + bowel sounds - GI Obese Deferred - No abnormalities - Ext Moderate edema in both lower extremities. - MSK .4+/5 weakness in right upper and lower extremities. Decreased sensation in the right upper and lower extremity. - Neuro 4/5 right upper extremity and 4/5 right lower extremity weakness. Decreased to light touch and temper ature in the right. - Psych Mild depression. ASSESSMENT: Pt. is a 45 yo Right-handed female of unknown race.On 10/28/2020 [facility] of right-side weakness.On 10/28/2020 she was admitted to [facility] with diagnosis CVA.Her impairment category is Stroke 01 - Right Body (Left Brain) (01 .2).Pre-morbidly, Pt. was independent/mod-I in Sphincter Control, Self-Care, Transfers Control, and B alance; and she had good Endurance and Locomotion.Currently, she has deficits of Safety Awareness, Ba edmundo, Sphincter Control, Transfers Control, Endurance, and Locomotion.Pt. is now referred to [facility] for acute in-patient rehabilitation in order to maximize patient's functio nal independence in activities of daily living, strength, ROM, and mobility.- Rehab Goal Patient has realistic goal of being discharged at assistance level 7-Ind to reside at Home with Fami ly/Relatives. MDM/PLAN: - Physical Therapy Gait dysfunction - to improve, our physical therapists will perform initial evaluation of pt's statu s upon admission and devise an individualized program for Gait Training, and Wheel Chair mobility Inability to transfer - to improve, our physical therapists will perform initial evaluation of pt's status upon admission and devise an individualized program for Bed mobility Need for home safety evaluation - to improve, our physical therapists will perform initial evaluatio n of pt's status upon admission and devise an individualized program for Home Evaluation Need in caregiver upon discharge - to improve, our physical therapists will perform initial evaluati on of pt's status upon admission and devise an individualized program for Caregiver Training New precaution - to improve, our physical therapists will perform initial evaluation of pt's status upon admission and devise an individualized program for Patient precaution education Poor balance - to improve, our physical therapists will perform initial evaluation of pt's status up on admission and devise an individualized program for Balance Training Poor endurance - to improve, our physical therapists will perform initial evaluation of pt's status upon admission and devise an individualized program for Endurance Training Weakness - to improve, our physical therapists will perform initial evaluation of pt's status upon a dmission and devise an individualized program for Aquatic Therapy, Neuromuscular Reeducation, and Str engthening Achieving independence - to improve, our physical therapists will perform initial evaluation of pt's status upon admission and devise an individualized program for Community Reintegration Activities - Occupational Therapy Need for care aid - to improve, our occupation therapists will perform initial evaluation of pt's status upon admission and devise an individualized program for Caregiver Training Weakness - to improve, our occupation therapists will perform initial evaluation of pt's status upon admission and devise an individualized program for Aquatic Therapy, Balance, Endurance, UE ROM, and UE strengthening - Other See attached MAR (Medication Administration Record) - Diet Type Continue Regular - Diet - Liquid Texture Continue Regular - Tube Feed Continue N/A - Bladder care per protocol - Weight Bearing Precaution WBAT right LE - Skin care per protocol - Diet - Solid Texture Continue Regular - Shower allowing shower for Dementia, TBI, Stroke, or others FUNCTIONAL STATUS: UPDATED AT WEEKLY TEAM CONFERENCE - Bladder Same accident frequency: 7-Ind - No accidents in the past 7 days - Bowel Same accident frequency: 7-Ind - No accidents in the past 7 days - Walking Same score based on distance walked: 0(N/A) Same score based on distance walked: 1(<=50ft) - Wheelchair Same score based on distance traveled: 0(N/A) FUNCTIONAL STATUS: - Self-Care A. Eating Ester B. Grooming Ester C. Bathing Sanaz D. Dressing - Upper sup E. Dressing - Lower sup F. Toileting Ester - Sphincter Control G. Bladder control Ester H. Bowel control Ester - Transfers Control I. Bed/Chair/Wheelchair Sanaz J. Toilet sup K. Tub/Shower Sanaz - Locomotion L. Walk/Wheelchair (B) sup M. Stairs ADNO - Communication N. Comprehension (B) Ester O. Expression (B) Ester - Social Cognition P. Social Interaction Ester Q. Problem Solving sup R. Memory Ester - Endurance Good - Balance Fair - Safety Awareness Good QI SCORES: - Self-Care A. Eating 03-Partial/moderate assistance B. Oral hygiene 03-Partial/moderate assistance C. Toileting hygiene 03-Partial/moderate assistance E. Shower/bathe self 02-Substantial/maximal assistance F. Upper body dressing 03-Partial/moderate assistance G. Lower body dressing 03-Partial/moderate assistance H. Putting on/taking off footwear 03-Partial/moderate assistance - Mobility A. Roll left and right 03-Partial/moderate assistance B. Sit to lying 03-Partial/moderate assistance C. Lying to sitting on side of bed 03-Partial/moderate assistance D. Sit to stand 03-Partial/moderate assistance E. Chair/vdn-wi-rvqen transfer 03-Partial/moderate assistance F. Toilet transfer 03-Partial/moderate assistance G. Car transfer 88-Not attempted due to medical condition or safety concerns I. Walk 10 feet 88-Not attempted due to medical condition or safety concerns J. Walk 50 feet with two turns 88-Not attempted due to medical condition or safety concerns K. Walk 150 feet 88-Not attempted due to medical condition or safety concerns L. Walking 10 feet on uneven surfaces 88-Not attempted due to medical condition or safety concerns M. 1 step (curb) 88-Not attempted due to medical condition or safety concerns N. 4 steps 88-Not attempted due to medical condition or safety concerns O. 12 steps 88-Not attempted due to medical condition or safety concerns P. Picking up object 88-Not attempted due to medical condition or safety concerns R. Wheel 50 feet with two turns 88-Not attempted due to medical condition or safety concerns S. Wheel 150 feet 88-Not attempted due to medical condition or safety concerns - Bladder and Bowel Bladder continence Bowel continence - Endurance Fair - Balance Fair - Safety Awareness Fair CURRENT [facility]. DEFICITS: Self-Care, Mobility, Endurance, Balance, and Safety Awareness SIGNATURE PANEL: (CDT)
[2020-11-12] MEDS: ATORVASTATIN 10 MG TAB PO SCH (19:12)
[2020-11-12] MEDS: MELATONIN 3 MG TABLET PO PRN (19:12)
[2020-11-12] MEDS: SODIUM CHLORIDE OPTH SCH (19:13)
[2020-11-13 07:04] LABS: Absolute Lymphocytes (CBC) 1.5 K/uL (0.7-4.9); Basophils % 0.2 % (0-1.3); Hematocrit 34.6 % (36.0-45.0); Lymphocytes % 25.4 % (15.3-44.8); MPV 9.5 fL (7.6-11.3); RBC Red Blood Cell Count 3.84 M/uL (3.86-4.86)
[2020-11-13] MEDS: PANTOPRAZOLE 40MG TABLET PO SCH ×2 (07:04→16:12)
[2020-11-13] MEDS: LIDOCAINE 4% PATCH TOP SCH (07:05)
[2020-11-13 07:40] LABS: Albumin 3.1 g/dL (3.4-5.0); BUN Blood Urea Nitrogen 17 mg/dL (7-18); Bicarbonate 26 mmol/L (21-32); Glucose Level 114 mg/dL (74-106); Magnesium 2.3 mg/dL (1.8-2.4); Potassium 3.7 mmol/L (3.5-5.1); Prealbumin 20.9 mg/dL (20-40); Sodium Level 147 mmol/L (136-145)
[2020-11-13] MEDS: INSULIN -REGULAR HUMAN 50 UNIT/0.5 ML ML SQ SCH ×2 (07:41→19:11)
[2020-11-13] MEDS: ACYCLOVIR 400 MG TABLET PO SCH ×5 (08:22→19:11)
[2020-11-13] MEDS: LABETALOL HCL 100 MG TAB PO SCH (08:22)
[2020-11-13] MEDS: carBAMazepine 200 MG TAB PO SCH ×2 (08:22→19:10)
[2020-11-13] MEDS: acetaZOLAMIDE 250 MG TAB PO SCH ×2 (08:23→19:10)
[2020-11-13] MEDS: ASPIRIN EC 81 MG TAB PO SCH (08:23)
[2020-11-13] MEDS: [UNRECOGNIZED DRUG - OTHER] OPTH PRN (08:24)
[2020-11-13] MEDS: ENOXAPARIN 40 MG/0.4 ML SQ SCH (16:13)
--- NOTE | 2020-11-13 16:53 | R.PN ---
PROGRESS NOTES ENCOUNTER DATE AND TIME: 11/13/2020 16:48 (CDT) NAME GIOVANNY HARRISON DATE OF : 1975 DATE OF ADMISSION: 11/04/2020 16:46 (CDT) CVACHIEF COMPLAINT: Right sided weakness from left subcortical stroke. SUBJECTIVE: Pt denied any depression. Pt denied any Shortness of Breath. WBC 5.9, Hgb 11.3, glucose 119. Chest x-ray shows no acute cardiopulmonary findings. Ambulated 600' with independence using a rolling walker. Wheelchair mobilized 250' with modified inde pendence and resistance. VITAL SIGNS Temperature: 96.8 F SBP/DBP: 120/66 Pulse: 59 Resp: 16 MEDICATION ALLERGIES: No Known Drug Allergies (NKDA) ENVIRONMENTAL ALLERGIES: - Substance Allergies None Known - Other Allergies None Known NURSING: - Shower allowing shower - Bladder care per protocol - Skin care per protocol PRECAUTIONS: - Weight Bearing Precaution WBAT right LE ACTIVITIES OOB only with supervision THERAPIES: - Occupational Therapy Cognitive Retraining. Visual Perceptual Training. - Dietary and Nutrition Adequate Nutrition. Nutritional Education. Nutritional Supplements. - Speech Therapy Cognitive Training. Expressive Language Skills. Memory Strategies. Receptive Language Skills. Speech Intelligibility Training. PHYSICAL EXAM - Gen Alert and awake Lying in bed No apparent distress Oriented to: person, time, and place - Skin No breakdown Normacephalic - Eyes No abnormalities - ENMT No abnormalities - Neck No abnormalities - CVS RRR - Chest Clear - Abd + bowel sounds - GI Obese Deferred - No abnormalities - Ext Moderate edema in both lower extremities. - MSK .4+/5 weakness in right upper and lower extremities. Decreased sensation in the right upper and lower extremity. - Neuro 4/5 right upper extremity and 4/5 right lower extremity weakness. Decreased to light touch and temper ature in the right. - Psych Mild depression. ASSESSMENT: Pt. is a 45 yo Right-handed female of unknown race.On 10/28/2020 Pt. [facility] with sudden onset of right-side weakness.On 10/28/2020 she was admitted to [facility] with diagnosis CVA.Her impairment category is Stroke 01 - Right Body (Left Brain) (01 .2).Pre-morbidly, Pt. was independent/mod-I in Sphincter Control, Self-Care, Transfers Control, and B alance; and she had good Endurance and Locomotion.Currently, she has deficits of Safety Awareness, Ba edmundo, Sphincter Control, Transfers Control, Endurance, and Locomotion.Pt. is now referred to [facility] for acute in-patient rehabilitation in order to maximize patient's functio nal independence in activities of daily living, strength, ROM, and mobility.- Rehab Goal Patient has realistic goal of being discharged at assistance level 7-Ind to reside at Home with Fami ly/Relatives. MDM/PLAN: - Physical Therapy Gait dysfunction - to improve, our physical therapists will perform initial evaluation of pt's statu s upon admission and devise an individualized program for Gait Training, and Wheel Chair mobility Inability to transfer - to improve, our physical therapists will perform initial evaluation of pt's status upon admission and devise an individualized program for Bed mobility Need for home safety evaluation - to improve, our physical therapists will perform initial evaluatio n of pt's status upon admission and devise an individualized program for Home Evaluation Need in caregiver upon discharge - to improve, our physical therapists will perform initial evaluati on of pt's status upon admission and devise an individualized program for Caregiver Training New precaution - to improve, our physical therapists will perform initial evaluation of pt's status upon admission and devise an individualized program for Patient precaution education Poor balance - to improve, our physical therapists will perform initial evaluation of pt's status up on admission and devise an individualized program for Balance Training Poor endurance - to improve, our physical therapists will perform initial evaluation of pt's status upon admission and devise an individualized program for Endurance Training Weakness - to improve, our physical therapists will perform initial evaluation of pt's status upon a dmission and devise an individualized program for Aquatic Therapy, Neuromuscular Reeducation, and Str engthening Achieving independence - to improve, our physical therapists will perform initial evaluation of pt's status upon admission and devise an individualized program for Community Reintegration Activities - Occupational Therapy Need for account executive healthcare - to improve, our occupation therapists will perform initial evaluation of pt's status upon admission and devise an individualized program for Caregiver Training Weakness - to improve, our occupation therapists will perform initial evaluation of pt's status upon admission and devise an individualized program for Aquatic Therapy, Balance, Endurance, UE ROM, and UE strengthening - Other See attached MAR (Medication Administration Record) - Diet Type Continue Regular - Diet - Liquid Texture Continue Regular - Tube Feed Continue N/A - Bladder care per protocol - Weight Bearing Precaution WBAT right LE - Skin care per protocol - Diet - Solid Texture Continue Regular - Shower allowing shower for Dementia, TBI, Stroke, or others FUNCTIONAL STATUS: UPDATED AT WEEKLY TEAM CONFERENCE - Bladder Same accident frequency: 7-Ind - No accidents in the past 7 days - Bowel Same accident frequency: 7-Ind - No accidents in the past 7 days - Walking Same score based on distance walked: 0(N/A) Same score based on distance walked: 1(<=50ft) - Wheelchair Same score based on distance traveled: 0(N/A) FUNCTIONAL STATUS: - Self-Care A. Eating Ester B. Grooming Ester C. Bathing Sanaz D. Dressing - Upper sup E. Dressing - Lower sup F. Toileting Ester - Sphincter Control G. Bladder control Ester H. Bowel control Ester - Transfers Control I. Bed/Chair/Wheelchair Sanaz J. Toilet sup K. Tub/Shower Sanaz - Locomotion L. Walk/Wheelchair (B) sup M. Stairs ADNO - Communication N. Comprehension (B) Ester O. Expression (B) Ester - Social Cognition P. Social Interaction Ester Q. Problem Solving sup R. Memory Ester - Endurance Good - Balance Fair - Safety Awareness Good QI SCORES: - Self-Care A. Eating 03-Partial/moderate assistance B. Oral hygiene 03-Partial/moderate assistance C. Toileting hygiene 03-Partial/moderate assistance E. Shower/bathe self 02-Substantial/maximal assistance F. Upper body dressing 03-Partial/moderate assistance G. Lower body dressing 03-Partial/moderate assistance H. Putting on/taking off footwear 03-Partial/moderate assistance - Mobility A. Roll left and right 03-Partial/moderate assistance B. Sit to lying 03-Partial/moderate assistance C. Lying to sitting on side of bed 03-Partial/moderate assistance D. Sit to stand 03-Partial/moderate assistance E. Chair/[id number] transfer 03-Partial/moderate assistance F. Toilet transfer 03-Partial/moderate assistance G. Car transfer 88-Not attempted due to medical condition or safety concerns I. Walk 10 feet 88-Not attempted due to medical condition or safety concerns J. Walk 50 feet with two turns 88-Not attempted due to medical condition or safety concerns K. Walk 150 feet 88-Not attempted due to medical condition or safety concerns L. Walking 10 feet on uneven surfaces 88-Not attempted due to medical condition or safety concerns M. 1 step (curb) 88-Not attempted due to medical condition or safety concerns N. 4 steps 88-Not attempted due to medical condition or safety concerns O. 12 steps 88-Not attempted due to medical condition or safety concerns P. Picking up object 88-Not attempted due to medical condition or safety concerns R. Wheel 50 feet with two turns 88-Not attempted due to medical condition or safety concerns S. Wheel 150 feet 88-Not attempted due to medical condition or safety concerns - Bladder and Bowel Bladder continence Bowel continence - Endurance Fair - Balance Fair - Safety Awareness Fair CURRENT [facility]. DEFICITS: Self-Care, Mobility, Endurance, Balance, and Safety Awareness SIGNATURE PANEL: (CDT)
[2020-11-13] MEDS: ATORVASTATIN 10 MG TAB PO SCH (19:11)
[2020-11-13] MEDS: SODIUM CHLORIDE OPTH SCH (19:11)
[2020-11-13] MEDS: MELATONIN 3 MG TABLET PO PRN (19:12)
[2020-11-14] MEDS: INSULIN -REGULAR HUMAN 50 UNIT/0.5 ML ML SQ SCH ×2 (07:00→19:36)
[2020-11-14] MEDS: LIDOCAINE 4% PATCH TOP SCH (08:24)
[2020-11-14] MEDS: ACYCLOVIR 400 MG TABLET PO SCH ×5 (08:24→19:36)
[2020-11-14] MEDS: carBAMazepine 200 MG TAB PO SCH ×2 (08:24→19:35)
[2020-11-14] MEDS: ASPIRIN EC 81 MG TAB PO SCH (08:25)
[2020-11-14] MEDS: acetaZOLAMIDE 250 MG TAB PO SCH ×2 (08:25→19:35)
[2020-11-14] MEDS: PANTOPRAZOLE 40MG TABLET PO SCH ×2 (08:28→17:02)
[2020-11-14] MEDS: LABETALOL HCL 100 MG TAB PO SCH (08:43)
--- NOTE | 2020-11-14 09:43 | P.RH.PN ---
Estimated Length of Stay: 15 Expected Discharge Date: 11/18/20 Discharge Disposition Plan: Home Family Support: Yes [facility] Goal: Mobility, Transfers, Self Care Vital Signs: Last Vital Signs Temp 97 F 11/14/20 06:36 Pulse 67 11/14/20 08:43 Resp 20 11/14/20 06:36 BP 130/68 11/14/20 08:43 Pulse Ox 100 11/14/20 06:36 Laboratory: Laboratory Last Values WBC 5.90 K/uL (4.3-10.9) 11/13/20 06:43 RBC 3.84 M/uL (3.86-4.86) L 11/13/20 06:43 Hgb 11.3 g/dL (12.0-15.0) L 11/13/20 06:43 Hct 34.6 % (36.0-45.0) L 11/13/20 06:43 MCV 90.1 fL (80-100) 11/13/20 06:43 MCH 29.4 pg (27.0-35.0) 11/13/20 06:43 MCHC 32.6 g/dL (32.0-36.0) 11/13/20 06:43 RDW 14.8 % (12.1-15.2) 11/13/20 06:43 Plt Count 197 K/uL (152-406) 11/13/20 06:43 MPV 9.5 fL (7.6-11.3) 11/13/20 06:43 Neutrophils % 65.6 % (41.7-73.7) 11/13/20 06:43 Lymphocytes % 25.4 % (15.3-44.8) 11/13/20 06:43 Monocytes % 6.4 % (3.3-12.3) 11/13/20 06:43 Eosinophils % 2.4 % (0-4.4) 11/13/20 06:43 Basophils % 0.2 % (0-1.3) 11/13/20 06:43 Absolute Neutrophils 3.9 K/uL (1.8-8.0) 11/13/20 06:43 Absolute Lymphocytes 1.5 K/uL (0.7-4.9) 11/13/20 06:43 Absolute Monocytes 0.4 K/uL (0.1-1.3) 11/13/20 06:43 Absolute Eosinophils 0.1 K/uL (0-0.5) 11/13/20 06:43 Absolute Basophils 0.0 K/uL (0-0.5) 11/13/20 06:43 Sodium 147 mmol/L (136-145) H 11/13/20 06:43 Potassium 3.7 mmol/L (3.5-5.1) 11/13/20 06:43 Chloride 115 mmol/L (98-107) H 11/13/20 06:43 Carbon Dioxide 26 mmol/L (21-32) 11/13/20 06:43 BUN 17 mg/dL (7-18) 11/13/20 06:43 Creatinine 0.57 mg/dL (0.55-1.3) 11/13/20 06:43 Estimated GFR > 90 mL/min (=/>90) 11/13/20 06:43 Glucose 114 mg/dL (74-106) H 11/13/20 06:43 POC Glucose 98 mg/dL (65-120) 11/14/20 06:57 Calcium 8.6 mg/dL (8.5-10.1) 11/13/20 06:43 Magnesium 2.3 mg/dL (1.8-2.4) 11/13/20 06:43 Albumin 3.1 g/dL (3.4-5.0) L 11/13/20 06:43 Prealbumin 20.9 mg/dL (20-40) 11/13/20 06:43 Urine Color Yellow (Yellow) 11/05/20 01:13 Urine Appearance Clear (Clear) 11/05/20 01:13 Urine pH 6.0 (5.0-7.0) 11/05/20 01:13 Ur Specific [place] 1.025 (1.005-1.030) 11/05/20 01:13 Glucose (UA)(Auto) Negative (Negative) 11/05/20 01:13 Urine Ketones Negative (Negative) 11/05/20 01:13 Urine Blood Negative (Negative) 11/05/20 01:13 Urine Nitrite Negative (Negative) 11/05/20 01:13 Urine Bilirubin Negative (Negative) 11/05/20 01:13 Urine Urobilinogen 0.2 mg/dL (0.2-1.0) 11/05/20 01:13 Ur Leukocyte Esterase Negative (Negative) 11/05/20 01:13 Urine RBC <5 /HPF (NONE SEEN) 11/05/20 01:13 Urine WBC <5 /HPF (<5) 11/05/20 01:13 Ur Squamous Epith Cells <5 /HPF (NONE SEEN) 11/05/20 01:13 Ur Urothelial Cells Cancelled 11/04/20 21:04 Calcium Oxalate Crystal Cancelled 11/04/20 21:04 Uric Acid Crystals Cancelled 11/04/20 21:04 Triple Phos Crystals Cancelled 11/04/20 21:04 Other Crystals Cancelled 11/04/20 21:04 Amorphous Sediment Cancelled 11/04/20 21:04 Glitter Cells Cancelled 11/04/20 21:04 Urine Bacteria <20 /HPF (<20) 11/05/20 01:13 Hyaline Casts Cancelled 11/04/20 21:04 Fine Granular Casts Cancelled 11/04/20 21:04 Coarse Granular Casts Cancelled 11/04/20 21:04 Waxy Casts Cancelled 11/04/20 21:04 RBC Casts Cancelled 11/04/20 21:04 WBC Casts Cancelled 11/04/20 21:04 Urine Mucus Cancelled 11/04/20 21:04 Urine Other Cancelled 11/04/20 21:04 Urine Trichomonas Cancelled 11/04/20 21:04 Urine Yeast Cancelled 11/04/20 21:04 Ur Yeast w Hyphae Cancelled 11/04/20 21:04 Urine Yeast (Budding) Cancelled 11/04/20 21:04 Urine Sperm Cancelled 11/04/20 21:04 Urine Culture Reflexed Not needed 11/05/20 01:13 Urine Total Volume Cancelled 11/04/20 21:04 Urine Total Protein Negative (Negative) 11/05/20 01:13 SARS-CoV-2 RNA (RT-PCR) Negative (NEGATIVE) 11/11/20 05:00 Weight: 357 lb Wound Present: No Closed Surgical Incision Present: No Negative Pressure Wound Therapy Present: No Physician Update: Labs were reviewed and are stable. She is making good progress with all therapy ambulating with supervision using a walker. She will be discharged next week with [facility] outpatient therapy. Functional Improvement: Patient is a new admitted patient to rehab floor, and is shows good work ethic and possibly for good progression. Patient is currently SBA w/ transfers and gait tx. Summary: Patient's care plan and snf goals have been reviewed and revised as necessary. Please see the Rehabilitation Signature page for all necessary signatures.
[2020-11-14] MEDS: ENOXAPARIN 40 MG/0.4 ML SQ SCH (16:33)
[2020-11-14] MEDS: ATORVASTATIN 10 MG TAB PO SCH (19:36)
[2020-11-14] MEDS: SODIUM CHLORIDE OPTH SCH (19:36)
[2020-11-14 19:37] VITALS: BP 120/71; TEMP 98.5
== END 2020-11-14 19:39 | disposition home or self-care (01) | DRG 57 ==
LOC: 5TH 11-04 16:46
PROVIDERS: ADMIT Psychiatry & Neurology Neurology with Special Qualifications in Child Neurology; ATTEND Psychiatry & Neurology Neurology with Special Qualifications in Child Neurology
DX: I69.351 Hemiplegia and hemiparesis following cerebral infarction affecting right dominant side (principal); Z68.43 Body mass index [BMI] 50.0-59.9, adult; I10 Essential (primary) hypertension; E66.01 Morbid (severe) obesity due to excess calories; E11.9 Type 2 diabetes mellitus without complications; Z90.710 Acquired absence of both cervix and uterus; Z98.51 Tubal ligation status; Z20.822 Contact with and (suspected) exposure to COVID-19
CPT/HCPCS: 36415; 71045; 80048; 81001; 82040; 82947; 83735; 84134; 85025; 87077; 87086; 87088; 87186; 92507; 92523; 97110; 97112; 97116; 97161; 97530; 97542; J1650; U0003

== ENCOUNTER 2021-04-05 12:08 | Emergency (ER) | payer OTHER ==
[2021-04-05 13:02] LABS: Absolute Lymphocytes (CBC) 1.4 K/uL (0.7-4.9); Basophils % 0.3 % (0-1.3); Hematocrit 43.4 % (36.0-45.0); MPV 10.2 fL (7.6-11.3); RBC Red Blood Cell Count 4.96 M/uL (3.86-4.86)
[2021-04-05 13:08] LABS: Protime INR 1.03
--- NOTE | 2021-04-05 13:11 | RAD REPORT ---
EXAM DESCRIPTION: RAD - Chest Single View - 04/05/2021 1:00 pm CLINICAL HISTORY: COUGH Chest pain. COMPARISON: Chest Single View dated 11/11/2020; Chest Single View dated 02/11/2019; Chest Single View da octaviano 06/19/2018; Chest Single View dated 06/13/2018 FINDINGS: Portable technique limits examination quality. The lungs are grossly clear. The heart is normal in size. No displaced fractures. IMPRESSION: No acute intrathoracic process suspected.
[2021-04-05] MEDS ORDERED: NA CHLORIDE 0.9% 1,000 ML ONE (13:22)
[2021-04-05] MEDS ORDERED: MAGNESIUM SULFATE 1 gm IVPB 1 GM/100 ML BAG IV ONE (13:22)
[2021-04-05 13:45] LABS: ALT/SGPT 40 U/L (12-78); AST/SGOT 58 U/L (15-37); Albumin 3.6 g/dL (3.4-5.0); Alkaline Phosphatase 117 U/L (45-117); BUN Blood Urea Nitrogen 8 mg/dL (7-18); Bicarbonate 30 mmol/L (21-32); Bilirubin Direct 0.1 mg/dL (0-0.2); Bilirubin Total 0.6 mg/dL (0.2-1.0); Glucose Level 243 mg/dL (74-106); Lipase 44 U/L (73-393); Magnesium 1.8 mg/dL (1.8-2.4); NT PRO-BNP 34 pg/mL (<125); Potassium 3.7 mmol/L (3.5-5.1); Protein, Total 8.4 g/dL (6.4-8.2); Sodium Level 142 mmol/L (136-145); Troponin (Emerg Dept Use Only) < 0.02 ng/mL (0.0-0.045)
[2021-04-05] MEDS ORDERED: ONDANSETRON 4 MG/2 ML VIAL ONE (13:53)
[2021-04-05] MEDS ORDERED: MORPHINE 2 MG/ML SYR ONE (13:53)
--- NOTE | 2021-04-05 15:51 | ER ---
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 Coronavirus screen: At this time, the client does not indicate any symptoms associated with coronavirus-19. Ebola Screen: Patient negative for fever greater than or equal to 101.5 degrees Fahrenheit, and additional compatible Ebola Virus Disease symptoms Patient denies exposure to infectious person. Patient denies travel to an Ebola-affected area in the 21 days before illness onset. No symptoms or risks identified at this time. Initial Sepsis Screen: Does the patient meet any 2 criteria? No. Patient's initial sepsis screen is negative. Does the patient have a suspected source of infection? No. Patient's initial sepsis screen is negative. Risk Assessment: Do you want to hurt yourself or someone else? Patient reports no desire to harm self or others. Onset of symptoms was April 05, 2021. 12:27 Method Of Arrival: EMS: [facility] iw 12:27 Acuity: SIMRAN 3 iw Historical: - Allergies: 12:32 PENICILLINS; iw 12:32 Plavix; iw 12:32 Warfarin; iw - PMHx: 12:32 Asthma; bells palsy; Chronic pain; CVA; Depression; Diabetes - NIDDM; GERD; iw Hyperlipidemia; Hypertension; Irritable bowel syndrome; Kidney stones; lymphedema; Migraines; Sleep Apnea; - PSHx: 12:38 hysterectomy; knee X 3; section; Ligation of fallopian tube; Cholecystectomy; iw hernia repair; - Immunization history:: Adult Immunizations Client reports receiving the 2nd dose of the Covid vaccine. - Social history:: Smoking status: Patient denies any tobacco usage or history of. - Family history:: not pertinent. Screenin:04 Abuse screen: Denies threats or abuse. Denies injuries from another. Nutritional iw screening: No deficits noted. Tuberculosis screening: No symptoms or risk factors identified. Fall Risk IV access (20 points). Assessment: 13:04 General: Appears uncomfortable, obese, Behavior is cooperative. Pain: Complains of pain iw in back, right leg and left leg. Neuro: Level of Consciousness is awake, alert, obeys commands, Oriented to person, place, time, situation, Moves all extremities. Full function. Cardiovascular: Patient's skin is warm and dry. Respiratory: Respiratory effort is even, unlabored, Respiratory pattern is regular, symmetrical. GI: Derm: Skin is intact, is healthy with good turgor. Musculoskeletal: Range of motion: intact in all extremities. 13:32 Reassessment: Patient appears in no apparent distress at this time. Patient is alert, iw oriented x 3, equal unlabored respirations, skin warm/dry/pink. pt now requesting morphine, pt medicated per AUG, call light within reach, VSS. 16:00 Reassessment: Ultrasound of bilateral lower extremities completed at bedside. sl2 Vital Signs: 12:33 BP 142 / 82; Pulse 80; Resp 18 S; Temp 97.2; Pulse Ox 99% on R/A; Weight 142.88 kg; iw Height 5 ft. 3 in. (160.02 cm); Pain 8/10; 13:38 BP 133 / 85; Pulse 71; Resp 16; Pulse Ox 96% on R/A; iw 14:30 BP 128 / 76; Pulse 80; Resp 18; Temp 98.2; Pulse Ox 100% on R/A; sl2 15:35 BP 135 / 86; Pulse 68; Resp 18; Temp 98.2; Pulse Ox 100% on R/A; sl2 12:33 Body Mass Index 55.80 (142.88 kg, 160.02 cm) iw ED Course: 12:22 Patient arrived in ED. eb 12:31 Triage completed. iw 12:31 Grabiel Harper MD is Attending Physician. lisa 12:33 Arm band placed on. iw 12:39 Inserted saline lock: 20 gauge in right antecubital area, using aseptic technique. 3 Blood collected. 12:39 Initial lab(s) drawn, by me, sent to lab. [facility] 13:00 XRAY Chest (1 view) In Process Unspecified. EDMS 13:04 Patient has correct armband on for positive identification. iw 13:38 Lindsey Chaves, RN is Primary Nurse. iw 16:02 US Extremity Venous W Compression Dwayne In Process Unspecified. EDMS 16:57 No provider procedures requiring assistance completed. IV discontinued, intact, iw bleeding controlled, No redness/swelling at site. Pressure dressing applied. Administered Medications: 13:03 Drug: Magnesium Sulfate 1 grams Route: IVPB; Infused Over: 1 hrs; Site: right iw antecubital; 14:10 Follow up: Response: No adverse reaction; IV Status: Completed infusion; IV Intake: sl2 100ml 13:03 Drug: NS 0.9% 1000 ml Route: IV; Rate: 1 bolus; Site: right antecubital; iw 14:30 Follow up: Response: No adverse reaction; IV Status: Completed infusion; IV Intake: sl2 1000ml 13:32 Drug: morphine 2 mg Route: IVP; Site: right antecubital; iw 13:44 Follow up: Response: No adverse reaction; Pain is decreased sl2 13:50 Follow up: Response: No adverse reaction; Pain is decreased sl2 13:32 Drug: Zofran (Ondansetron) 4 mg Route: IVP; Site: right antecubital; iw 13:43 Follow up: Response: No adverse reaction sl2 13:50 Follow up: Response: No adverse reaction sl2 Intake: 14:10 IV: 100ml; Total: 100ml. sl2 14:30 IV: 1000ml; Total: 1100ml. sl2 Outcome: 15:50 Discharge ordered by . lisa 16:57 Discharged to home via wheelchair, with family. iw 16:57 Condition: good 16:57 Discharge instructions given to patient, family, Instructed on discharge instructions, follow up and referral plans. Demonstrated understanding of instructions, follow-up care. 16:58 Patient left the ED. Signatures: Dispatcher [employer] Grabiel Barton MD MD cha Williams, Irene, RN RN Gianna Correa 3 Catalina Johnson Sophia RN RN sl2
--- NOTE | 2021-04-05 15:51 | EDPHYS ---
Physician Documentation [facility] Name: Kelle Calderón Age: 45 yrs Sex: Female : 1975 Arrival Date: 04/05/2021 Time: 12:22 Bed 18 Private MD: ED Physician Grabiel Harper HPI: 04/05 14:31 This 45 yrs old Female presents to ER via EMS with complaints of Leg Pain, lisa cramping. 14:31 This 45 yrs old Female presents to ER via EMS with complaints of Leg Pain, lisa cramping. 14:31 The patient presents with pain. The complaints affect the right leg and left leg. lisa Context: no trauma , hx of spasams. Onset: The symptoms/episode began/occurred just prior to arrival. Modifying factors: The symptoms are alleviated by remaining still, the symptoms are aggravated by movement. Associated signs and symptoms: The patient has no apparent associated signs or symptoms. Treatment prior to arrival includes: no previous treatment. Severity of symptoms: At their worst the symptoms were mild, moderate, in the emergency department the symptoms are unchanged. The patient has experienced similar episodes in the past, multiple times. Historical: - Allergies: 12:32 PENICILLINS; iw 12:32 Plavix; iw 12:32 Warfarin; iw - PMHx: 12:32 Asthma; bells palsy; Chronic pain; CVA; Depression; Diabetes - NIDDM; GERD; iw Hyperlipidemia; Hypertension; Irritable bowel syndrome; Kidney stones; lymphedema; Migraines; Sleep Apnea; - PSHx: 12:38 hysterectomy; knee X 3; section; Ligation of fallopian tube; Cholecystectomy; iw hernia repair; - Immunization history:: Adult Immunizations Client reports receiving the 2nd dose of the Covid vaccine. - Social history:: Smoking status: Patient denies any tobacco usage or history of. - Family history:: not pertinent. ROS: 14:31 Constitutional: Negative for fever, chills, and weight loss, Eyes: Negative for injury, lisa pain, redness, and discharge, ENT: Negative for injury, pain, and discharge, Neck: Negative for injury, pain, and swelling, Cardiovascular: Negative for chest pain, palpitations, and edema, Respiratory: Negative for shortness of breath, cough, wheezing, and pleuritic chest pain, Abdomen/GI: Negative for abdominal pain, nausea, vomiting, diarrhea, and constipation, Back: Negative for injury and pain, : Negative for injury, bleeding, discharge, and swelling, Skin: Negative for injury, rash, and discoloration, Neuro: Negative for headache, weakness, numbness, tingling, and seizure, Psych: Negative for depression, anxiety, suicide ideation, homicidal ideation, and hallucinations, Allergy/Immunology: Negative for hives, rash, and allergies, Endocrine: Negative for neck swelling, polydipsia, polyuria, polyphagia, and marked weight changes, Hematologic/Lymphatic: Negative for swollen nodes, abnormal bleeding, and unusual bruising. 14:31 MS/extremity: Positive for pain, bilateral lymphedema. Exam: 14:31 Constitutional: This is a well developed, well nourished patient who is awake, alert, lisa and in no acute distress. Head/Face: Normocephalic, atraumatic. Eyes: Pupils equal round and reactive to light, extra-ocular motions intact. Lids and lashes normal. Conjunctiva and sclera are non-icteric and not injected. Cornea within normal limits. Periorbital areas with no swelling, redness, or edema. ENT: Nares patent. No nasal discharge, no septal abnormalities noted. Tympanic membranes are normal and external auditory canals are clear. Oropharynx with no redness, swelling, or masses, exudates, or evidence of obstruction, uvula midline. Mucous membranes moist. Neck: Trachea midline, no thyromegaly or masses palpated, and no cervical lymphadenopathy. Supple, full range of motion without nuchal rigidity, or vertebral point tenderness. No Meningismus. Chest/axilla: Normal chest wall appearance and motion. Nontender with no deformity. No lesions are appreciated. Cardiovascular: Regular rate and rhythm with a normal S1 and S2. No gallops, murmurs, or rubs. Normal PMI, no JVD. No pulse deficits. Respiratory: Lungs have equal breath sounds bilaterally, clear to auscultation and percussion. No rales, rhonchi or wheezes noted. No increased work of breathing, no retractions or nasal flaring. Abdomen/GI: Soft, non-tender, with normal bowel sounds. No distension or tympany. No guarding or rebound. No evidence of tenderness throughout. Back: No spinal tenderness. No costovertebral tenderness. Full range of motion. Female : Normal external genitalia. Skin: Warm, dry with normal turgor. Normal color with no rashes, no lesions, and no evidence of cellulitis. Neuro: Awake and alert, GCS 15, oriented to person, place, time, and situation. Cranial nerves II-XII grossly intact. Motor strength 5/5 in all extremities. Sensory grossly intact. Cerebellar exam normal. Normal gait. Psych: Awake, alert, with orientation to person, place and time. Behavior, mood, and affect are within normal limits. 14:31 Musculoskeletal/extremity: ROM: full active range of motion, full passive range of motion, Circulation is intact in all extremities. Sensation intact. Compartment Syndrome exam of affected extremity: is normal. Joints: All joints appear normal with full range of motion. DVT Exam: swelling, erythema, that is mild, of the right ankle, right Achilles, anterior aspect of right ankle and left leg. 14:49 ECG was reviewed by the Attending Physician. [facility] Vital Signs: 12:33 BP 142 / 82; Pulse 80; Resp 18 S; Temp 97.2; Pulse Ox 99% on R/A; Weight 142.88 kg; iw Height 5 ft. 3 in. (160.02 cm); Pain 8/10; 13:38 BP 133 / 85; Pulse 71; Resp 16; Pulse Ox 96% on R/A; iw 14:30 BP 128 / 76; Pulse 80; Resp 18; Temp 98.2; Pulse Ox 100% on R/A; sl2 15:35 BP 135 / 86; Pulse 68; Resp 18; Temp 98.2; Pulse Ox 100% on R/A; sl2 12:33 Body Mass Index 55.80 (142.88 kg, 160.02 cm) iw MDM: 12:33 Patient medically screened. lisa 14:37 Differential diagnosis: contusion. Data reviewed: vital signs, nurses notes, lab test lisa result(s), EKG, radiologic studies, doppler, plain films. 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 Test interpretation: by ED physician or midlevel provider: ECG, plain radiologic studies. Counseling: I had a detailed discussion with the patient and/or guardian regarding: the historical points, exam findings, and any diagnostic results supporting the discharge/admit diagnosis, lab results, radiology results, the need for outpatient follow up, for definitive care, a family practitioner, a neurologist. 04/05 12:33 Order name: Basic Metabolic Panel; Complete Time: 13:58 [facility] 04/05 12:33 Order name: CBC with Diff; Complete Time: 13:58 [facility] 04/05 12:33 Order name: LFT's; Complete Time: 13:58 [facility] 04/05 12:33 Order name: Magnesium; Complete Time: 13:58 [facility] 04/05 12:33 Order name: NT PRO-BNP; Complete Time: 13:58 [facility] 04/05 12:33 Order name: PT-INR; Complete Time: 13:58 [facility] 04/05 12:33 Order name: Troponin (emerg Dept Use Only); Complete Time: 13:58 [facility] 04/05 12:33 Order name: XRAY Chest (1 view); Complete Time: 13:58 [facility] 04/05 12:33 Order name: Lipase; Complete Time: 13:58 [facility] 04/05 14:39 Order name: US Extremity Venous W Compression Dwayne [facility] 04/05 12:33 Order name: EKG; Complete Time: 12:34 04/05 12:33 Order name: Cardiac monitoring; Complete Time: 12:40 [facility] 04/05 12:33 Order name: EKG - Nurse/Tech; Complete Time: 13:04 [facility] 04/05 12:33 Order name: IV Saline Lock; Complete Time: 12:39 [facility] 04/05 12:33 Order name: Labs collected and sent; Complete Time: 12:39 [facility] 04/05 12:33 Order name: O2 Per Protocol; Complete Time: 12:40 [facility] 04/05 12:33 Order name: O2 Sat Monitoring; Complete Time: 12:40 [facility] 04/05 12:33 Order name: Urine Dipstick-Ancillary (obtain specimen) [facility] EC:49 Rate is 73 beats/min. Rhythm is regular. QRS Abrams is Normal. [place] interval is normal. QRS lisa interval is normal. QT interval is normal. No Q waves. T waves are Normal. No ST changes noted. Clinical impression: NSR w/ Non-specific ST/T Changes and No evidence of ischemia. Interpreted by me. Reviewed by me. Administered Medications: 13:03 Drug: Magnesium Sulfate 1 grams Route: IVPB; Infused Over: 1 hrs; Site: right iw antecubital; 14:10 Follow up: Response: No adverse reaction; IV Status: Completed infusion; IV Intake: sl2 100ml 13:03 Drug: NS 0.9% 1000 ml Route: IV; Rate: 1 bolus; Site: right antecubital; iw 14:30 Follow up: Response: No adverse reaction; IV Status: Completed infusion; IV Intake: sl2 1000ml 13:32 Drug: morphine 2 mg Route: IVP; Site: right antecubital; iw 13:44 Follow up: Response: No adverse reaction; Pain is decreased sl2 13:50 Follow up: Response: No adverse reaction; Pain is decreased sl2 13:32 Drug: Zofran (Ondansetron) 4 mg Route: IVP; Site: right antecubital; iw 13:43 Follow up: Response: No adverse reaction sl2 13:50 Follow up: Response: No adverse reaction sl2 Disposition Summary: 04/05/21 15:50 Discharge Ordered Location: Home lisa Problem: new lisa Symptoms: have improved lisa Condition: Stable lisa Diagnosis - Edema, unspecified - bilateral lower extremity lymphadema lisa - Hyperventilation lisa - Morbid (severe) obesity due to excess calories lisa Followup: lisa - With: Private Physician - When: 2 - 3 days - Reason: Recheck today's complaints, Continuance of care, Re-evaluation by your physician Discharge Instructions: - Discharge Summary Sheet lsia - Edema lisa - Hyperventilation lisa - Obesity, Adult lisa - Edema, [id number] lisa - Obesity, Adult, [id number] lisa - Peripheral Edema lisa Forms: - Medication Reconciliation Form lisa - Thank You Letter lisa - Antibiotic Education lisa - Prescription Opioid Use lisa Signatures: Dispatcher [employer] Grabiel Barton MD MD cha Williams, Irene, RN RN Queenie Weston RN sl2
--- NOTE | 2021-04-05 16:09 | RAD REPORT ---
EXAM DESCRIPTION: US - Extrem Venous W Compress Dwayne - 04/05/2021 4:02 pm CLINICAL HISTORY: Pain;Swelling Bilateral leg edema and swelling. COMPARISON: <Comparisons> TECHNIQUE: Real-time sonographic interrogation of the left and right lower extremity deep venous sys tems was performed. FINDINGS: Normal compressibility, flow augmentation, phasic flow and spontaneous flow is identified in both the left and right lower extremity deep venous systems. IMPRESSION: No sonographic evidence of left or right lower extremity deep venous thrombosis.
[2021-04-05 17:07] VITALS: TEMP 98.2; O2SAT 100
[2021-04-05 17:09] VITALS: BP 135/86
== END 2021-04-05 16:58 | disposition home or self-care (01) ==
LOC: ER 12:08
DX: R60.0 Localized edema (principal); R06.4 Hyperventilation; E66.01 Morbid (severe) obesity due to excess calories; Z88.0 Allergy status to penicillin; Z88.8 Allergy status to other drugs, medicaments and biological substances
CPT/HCPCS: 96365; 93005; 85025; 80048; 36415; 83735; 85610; 80076; 84484; 83690; 83880; 71045; 93970; 96375; 99284; J3475; J2270; J7030; J2405

== ENCOUNTER 2022-05-02 07:51 | Emergency (ER) | payer OTHER ==
--- NOTE | 2022-05-02 08:38 | RAD REPORT ---
EXAM DESCRIPTION: RAD - Chest Single View - 05/02/2022 8:32 am CLINICAL HISTORY: cough, body aches, chest pain Chest pain. COMPARISON: Chest Single View dated 04/05/2021; Chest Single View dated 11/11/2020; Chest Single View dated 02/11/2019; Chest Single View dated 06/19/2018 FINDINGS: Portable technique limits examination quality. Interstitial markings are mildly prominent bilaterally which may represent infection. The heart is no rmal in size. No displaced fractures.
[2022-05-02 09:21] LABS: SARS-COV-2 RT PCR NEGATIVE (NEGATIVE)
--- NOTE | 2022-05-02 09:27 | EDPHYS ---
Physician Documentation [facility] Name: Kelle Calderón Age: 46 yrs Sex: Female : 1975 Arrival Date: 05/02/2022 Time: 07:55 Bed 17 Private MD: ED Physician Grabiel Harper HPI: 05/02 08:20 This 46 yrs old Female presents to ER via Ambulatory with complaints of Cough, jmm Congestion. 08:20 The patient or guardian reports cough. Onset: The symptoms/episode began/occurred jmm gradually, 1 week(s) ago. Modifying factors: The symptoms are alleviated by nothing, the symptoms are aggravated by nothing. This is a 46 year old female with a history of cva, depression, dm that presents to the ED with complaints of cough, sore throat, body aches beginning approx 1 week ago. . 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 - Social history:: Smoking status: Patient denies any tobacco usage or history of. ROS: 08:20 Constitutional: Positive for body aches. jmm 08:20 Cardiovascular: Positive for chest pain, with cough. 08:20 Respiratory: Positive for cough, shortness of breath. 08:20 Abdomen/GI: Positive for nausea, Negative for vomiting. 08:20 All other systems are negative. Exam: 08:20 Constitutional: This is a well developed, well nourished patient who is awake, alert, jmm and in no acute distress. Head/Face: atraumatic. Eyes: EOMI, no conjunctival erythema appreciated 08:20 Neck: Trachea midline, Supple Chest/axilla: Normal chest wall appearance and motion. 08:20 Abdomen/GI: Non distended Back: Normal ROM 08:20 ENT: Posterior pharynx: erythema, that is moderate. 08:20 Cardiovascular: Rate: normal, Rhythm: regular. 08:20 Respiratory: the patient does not display signs of respiratory distress, Respirations: normal, Breath sounds: are clear throughout. 08:20 Musculoskeletal/extremity: bilateral pedal edema appreciated, compartments are soft, NVI. 08:20 Skin: Appearance: Color: normal in color. 08:20 Neuro: Motor: is normal. Vital Signs: 08:12 BP 128 / 89; Pulse 55; Resp 18; Temp 98.2; Pulse Ox 100% on R/A; Weight 99.79 kg; ph Height 5 ft. 3 in. (160.02 cm); 10:10 BP 117 / 73; Pulse 55; Resp 18; Temp 97.5; Pulse Ox 100% on R/A; ph 08:12 Body Mass Index 38.97 (99.79 kg, 160.02 cm) ph MDM: 08:05 Patient medically screened. lisa 09:26 Data reviewed: vital signs, nurses notes. Counseling: I had a detailed discussion with timothy the patient and/or guardian regarding: the historical points, exam findings, and any diagnostic results supporting the discharge/admit diagnosis, radiology results, the need for outpatient follow up, to return to the emergency department if symptoms worsen or persist or if there are any questions or concerns that arise at home. 05/02 08:15 Order name: COVID-19/FLU A+B; Complete Time: 09:24 [facility] 05/02 08:16 Order name: Strep; Complete Time: 08:55 [facility] 05/02 08:16 Order name: Chest Single View XRAY; Complete Time: 08:39 [facility] 05/02 08:55 Order name: Throat Culture EDMS Administered Medications: No medications were administered Disposition: 13:43 Co-signature as Attending Physician, Grabiel Harper MD I agree with the assessment and lisa plan of care. Disposition Summary: 05/02/22 09:27 Discharge Ordered Location: Home amarjit Condition: Stable timothy Diagnosis - Pneumonia timothy Followup: timothy - With: Private Physician - When: 2 - 3 days - Reason: Recheck today's complaints, Continuance of care, Re-evaluation by your physician Discharge Instructions: - Discharge Summary Sheet timothy - Community-Acquired Pneumonia, Adult amarjit Forms: - Medication Reconciliation Form jmm - Thank You Letter jmm - Antibiotic Education jmm - Prescription Opioid Use jmm - Work release form eb Prescriptions: - levofloxacin 750 mg Oral Tablet - take 1 tablet by ORAL route once daily for 7 days; 7 tablet; Refills: 0, jmm Product Selection Permitted Signatures: Dispatcher [employer] Grabiel Barton MD MD cha Mickail, Joel, PA PA jmm Hall, Patricia RN RN ph
--- NOTE | 2022-05-02 09:27 | ER ---
Nurse's Notes [facility] Name: Kelle Calderón Age: 46 yrs Sex: Female : 1975 Arrival Date: 05/02/2022 Time: 07:55 Bed 17 Private MD: Diagnosis: Pneumonia Presentation: 05/02 08:12 Chief complaint: Patient states: Cough, congestion, chest tightness and chills, also ph reports mild SOB. Coronavirus screen: Vaccine status: Patient reports receiving the 2nd dose of the covid vaccine. Ebola Screen: No symptoms or risks identified at this time. Resp Distress? No respiratory distress is noted at this time. Initial Sepsis Screen: Does the patient meet any 2 criteria? No. Patient's initial sepsis screen is negative. Does the patient have a suspected source of infection? No. Patient's initial sepsis screen is negative. Risk Assessment: Do you want to hurt yourself or someone else? Patient reports no desire to harm self or others. Onset of symptoms was May 02, 2022. 08:12 Method Of Arrival: Ambulatory 08:12 Acuity: SIMRAN 3 Triage Assessment: 08:14 General: Appears in no apparent distress. uncomfortable, Behavior is calm, cooperative, ph appropriate for age, Reports chills for. Pain: Complains of pain in chest. Neuro: Level of Consciousness is awake, alert, obeys commands, Oriented to person, place, time, situation. Cardiovascular: Capillary refill < 3 seconds in bilateral fingers Patient's skin is warm and dry. Cardiovascular: Edema is 3+ to left ankle, left foot, right ankle and right foot non-pitting, hx of lymphedema. Respiratory: Reports cough that is non-productive, Airway is patent Respiratory effort is even, unlabored. GI: No signs and/or symptoms were reported involving the gastrointestinal system. Derm: Skin is healthy with good turgor, Skin is pink, warm \T\ dry. Musculoskeletal: Circulation, motion, and sensation intact. Range of motion: intact in all extremities. 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 - Social history:: Smoking status: Patient denies any tobacco usage or history of. Screenin:16 Abuse screen: Denies threats or abuse. Denies injuries from another. Nutritional ph screening: No deficits noted. Tuberculosis screening: No symptoms or risk factors identified. Fall Risk None identified. Assessment: 08:36 General: SEE TRIAGE ASSESSMENT. ph 10:10 Reassessment: Patient appears in no apparent distress at this time. Patient and/or ph family updated on plan of care and expected duration. Pain level reassessed. Patient is alert, oriented x 3, equal unlabored respirations, skin warm/dry/pink. Vital Signs: 08:12 BP 128 / 89; Pulse 55; Resp 18; Temp 98.2; Pulse Ox 100% on R/A; Weight 99.79 kg; ph Height 5 ft. 3 in. (160.02 cm); 10:10 BP 117 / 73; Pulse 55; Resp 18; Temp 97.5; Pulse Ox 100% on R/A; ph 08:12 Body Mass Index 38.97 (99.79 kg, 160.02 cm) ph ED Course: 07:55 Patient arrived in ED. mr 08:02 Moe Bean PA is PHCP. [facility] 08:02 Grabiel Harper MD is Attending Physician. [facility] 08:12 Rosalba Douglas, JOSEY is Primary Nurse. ph 08:13 Triage completed. ph 08:15 Arm band placed on Patient placed in an exam room, on a stretcher, on pulse oximetry. ph 08:16 Patient has correct armband on for positive identification. Bed in low position. Call light in reach. Side rails up X 1. Pulse ox on. NIBP on. 08:31 COVID swab sent to lab. Flu and/or RSV swab sent to lab. Strep swab sent to lab. tm3 08:33 Chest Single View XRAY In Process Unspecified. EDMS 10:10 No provider procedures requiring assistance completed. Patient admitted, IV remains in ph place. Administered Medications: No medications were administered Medication: 10:11 VIS not applicable for this client. ph Outcome: 09:27 Discharge ordered by MD. aguirre 10:11 Discharged to home ambulatory. ph 10:11 Condition: good 10:11 Discharge instructions given to patient, Instructed on discharge instructions, follow up and referral plans. medication usage, Demonstrated understanding of instructions, follow-up care, medications, Prescriptions given X 1. 10:11 Patient left the ED. ph Signatures: Dispatcher [employer] EDMoncho Camarena [id number] Moe Bean PA PA jmm Rivera, Mary mr Hall, Patricia, RN RN ph
[2022-05-02 10:15] VITALS: O2SAT 100
[2022-05-02 10:16] VITALS: BP 117/73; TEMP 97.5
== END 2022-05-02 10:11 | disposition home or self-care (01) ==
LOC: ER 07:51
DX: J18.9 Pneumonia, unspecified organism (principal); Z20.822 Contact with and (suspected) exposure to COVID-19
CPT/HCPCS: 87070; 87081; 0240U; 71045; 99284

== ENCOUNTER 2022-07-19 00:41 | Observation (INO) | payer OTHER ==
--- OUTSIDE RECORDS SUMMARY | 2022-07-19 01:00 | XMS REPORT | Continuity of Care Document ---
:1975 Author Organization [facility] t Address [address] [place] [address] Care Team Providers Name Role Phone NAHOMI CRESPO Primary Care Physician Unavailable LEANNE MCNULTY Attending Clinician Unavailable JANN HOPKINS Attending Clinician Unavailable Lars ROWLAND, Gianna Murdock Attending Clinician Unavailable Jann Ge Attending Clinician Leanne Ang Attending Clinician Deuce Joshi MD Attending Clinician SAKINA FIORE Attending Clinician Unavailable Sakina Dobbs Attending Clinician Danitza Connors MD Attending Clinician Doctor Unassigned, [place] Attending Clinician Unavailable DANITZA CONNORS Attending Clinician Unavailable Nurse, Ang Db Attending Clinician Unavailable Nahomi Crespo MD Attending Clinician Albert Espana S Attending Clinician Only, Adc Test Attending Clinician Unavailable LESLY BREEN Attending Clinician Unavailable ALICE AMEZQUITA Attending Clinician Unavailable Alice Amezquita MD Attending Clinician ROHIT JUARES Attending Clinician Unavailable ROHIT JUARES Attending Clinician Unavailable Homer GACRIA, Jolanta K.HDary Attending Clinician Draw, Clc-Bls Lab Attending Clinician Unavailable SHEYLA RODRIGUEZ Attending Clinician Unavailable Sheyla Rodriguez NP Attending Clinician Elizabeth Shelton Attending Clinician Unavailable Rachel PT, Shahnaz T Attending Clinician Unavailable Karli Tuttle MD Attending Clinician KARLI TUTTLE Attending Clinician Unavailable TRAVIS SHARPE Attending Clinician Unavailable Travis Sharpe APN Attending Clinician ABIGAIL SUE Attending Clinician Unavailable Abigail Townsend Attending Clinician ALEXANDRA HERRERA Attending Clinician Unavailable Alexandra Herrera MD Attending Clinician Brown GRINDER HAND, Randa K Attending Clinician Unavailable Nichole Hassan PT Attending Clinician Unavailable NAHOMI CRESPO S Attending Clinician Unavailable Zan AJCINTO Attending Clinician Unavailable Zan Nguyen Attending Clinician DEBO WOODS Attending Clinician Unavailable Debo Mejia Attending Clinician Bryant Colby Attending Clinician Unavailable CIERRA HANSON Attending Clinician Unavailable Cierra Hanson MD Attending Clinician Giuliano Abdullahi Attending Clinician Unavailable JANNETH VILLATORO Attending Clinician Unavailable Janneth Villatoro MD Attending Clinician Coretta Carcamo MD Attending Clinician CORETTA CARCAMO Attending Clinician Unavailable Meli Fischer Attending Clinician MELI BANKS Attending Clinician Unavailable JOLANTA CORONEL K.H. Attending Clinician Unavailable PALLAVI COMER Attending Clinician Unavailable COLIN HAGEN Attending Clinician Unavailable MIKE LANDAVERDE Attending Clinician Unavailable VIRGIL SANCHES Attending Clinician Unavailable Jordin Kelley MD Attending Clinician ALISA DENNIS II Attending Clinician Unavailable ALBERT CUEVAS Attending Clinician Unavailable ANJU UREÑA Attending Clinician Unavailable TAVARES GODWIN Attending Clinician Unavailable PHILL MORAES NP Attending Clinician Unavailable KUSHAL GREENBERG M.D. Attending Clinician Unavailable DEUCE PAK RD Attending Clinician Unavailable MAYRA CHEUNG Attending Clinician Unavailable MICKEY RESTREPO Attending Clinician Unavailable JANN HOPKINS Admitting Clinician Unavailable ROHIT JUARES Admitting Clinician Unavailable SHEYLA RODRIGUEZ Admitting Clinician Unavailable UNDEFINED Admitting Clinician Unavailable Physician, No Primary or Family Admitting Clinician UnavailTRAVIS Aden Admitting Clinician Unavailable ALEXANDRA HERRERA Admitting Clinician Unavailable LEANNE MCNULTY Admitting Clinician Unavailable Zan JACINTO Admitting Clinician Unavailable DEBO WOODS Admitting Clinician Unavailable Bryant Colby Admitting Clinician Unavailable CIERRA HANSON Admitting Clinician Unavailable Giuliano Abdullahi Admitting Clinician Unavailable MIKE LANDAVERDE Admitting Clinician Unavailable CLARY MONTEJO Admitting Clinician Unavailable RK TRENT Admitting Clinician Unavailable Candace Dhaliwal ACID TANK CLEANER Admitting Clinician Unavailable TAVARES GODWIN Admitting Clinician Unavailable MAYRA CHEUNG Admitting Clinician Unavailable MICKEY RESTREPO Admitting Clinician Unavailable Payers Payer Name Policy Type Policy Number Effective Date Expiration Date S ource MEDICAID OF [place] [id number] 2021 00:00:00 [facility] DUAL [id number] 2020 COMP HMO D SNP 00:00:00 [facility] STAR [id number] 2020 PLUS 00:00:00 [employer]ARE DUAL [id number] 2022 ACCESS OPEN PPO 00:00:00 [place] PLUS [id number] 2021 CLASSIC NO 00:00:00 PREMIUM HMO MEDICARE PART A [id number] 2016 \\T\\ B 00:00:00 [facility] MEDICARE [id number] 2019 2019 COMPLETE CHOICE 00:00:00 00:00:00 Problems Condition Condition Condition Status Onset Resolution Last Treating Co mments Source Name Details Category Date Date Treatment Clinician Date Pleurisy Pleurisy Disease Active 2021-06 Unive rs 2-05 ity of 00:00: [place] [facility] Lymphadeno Lymphadeno Disease Active 2021-06 U nivers nu nu 2-05 ity of 00:00: [place] [facility] Oropharyng Oropharyng Disease Active 2021-06 U nivers eal eal 2-05 ity of dysphagia dysphagia 00:00: [facility] Medical Branch Esophageal Esophageal Disease Active U nivers dysphagia dysphagia 9-28 ity of 00:00: [place] [facility] Epigastric Epigastric Disease Active U nivers pain pain 9-28 ity of 00:00: [place] [facility] H/O H/O Disease Active Univers gastric gastric 9-28 ity of sleeve sleeve 00:00: [place] [facility] Encounter Encounter Disease Active Uni vers to to 9-28 ity of establish establish 00:00: [facility] care care 00 Medical Branch Leg Leg Disease Active Univers weakness, weakness, 6-29 ity of bilateral bilateral 00:00: [facility] Decreased Decreased Disease Active Uni vers activity activity 6-29 ity of tolerance tolerance 00:00: [facility] Medical Branch Sacroiliac Sacroiliac Disease Active U nivers dysfunctio dysfunctio 6-29 it y of n n 00:00: [place] 00 Medical Branch Chronic Chronic Disease Active Univers bilateral bilateral 6-15 ity of low back low back 00:00: [place] pain with pain with 00 Medi diane bilateral bilateral Bran ch sciatica sciatica IIH IIH Disease Active Univers (idiopathi (idiopathi 6-15 it y of c c 00:00: [place] intracrani intracrani 00 Me dical al al Branch hypertensi hypertensi on) on) Cerebrovas Cerebrovas Disease Active U nivers cular cular 6-18 ity of accident accident 00:00: [place] (CVA), (CVA), 00 Medical unspecifie unspecifie Br anch d d mechanism mechanism Left arm Left arm Disease Active Unive rs weakness weakness 6-10 ity of 00:00: [place] 00 Medical Branch Decreased Decreased Disease Active [facility] ity of strength strength 00:00: [place] of left of left 00 Medical hand hand Branch Decreased Decreased Disease Active Uni vers activities activities 6-10 it y of of daily of daily 00:00: [place] living living 00 Medical (ADL) (ADL) Branch Blurry Blurry Disease Active Univers vision, vision, 3-26 ity of right eye right eye 00:00: [facility] Cellulitis Cellulitis Disease Active U nivers 3-25 ity of 00:00: [place] 00 Medical Branch Rhinovirus Rhinovirus Disease Active U nivers infection infection 3-18 ity of 00:00: [place] [facility] Lymphedema Lymphedema Disease Active U nivers 3-17 ity of 00:00: [place] [facility] Hyperlipid Hyperlipid Disease Active U nivers emia emia 3-17 ity of 00:00: [place] [facility] Major Major Disease Active Univers depressive depressive 3-17 it y of disorder disorder 00:00: [place] [facility] Cranial Cranial Disease Active Univers nerve VII nerve VII 2-12 ity of palsy palsy 00:00: [place] [facility] Facial Facial Disease Active Univers weakness weakness 2-10 ity of 00:00: [place] [facility] Bradycardi Bradycardi Disease Active U nivers a, sinus a, sinus 9-11 ity of 00:00: [place] [facility] Essential Essential Disease Active Uni vers hypertensi hypertensi 9-11 it y of on on 00:00: [place] [facility] JUDITH JUDITH Disease Active Univers (obstructi (obstructi 9-11 it y of ve sleep ve sleep 00:00: [place] apnea) apnea) 00 Medical Branch Atypical Atypical Disease Active Unive rs chest pain chest pain 9-11 it y of 00:00: [place] [facility] Type 2 Type 2 Disease Active Univers diabetes diabetes 9-11 ity of mellitus mellitus 00:00: [place] with other with other 00 Me dical specified specified Bran ch complicati complicati on on COVID-19 COVID-19 Disease Active Unive rs virus virus 9-11 ity of detected detected 00:00: [place] 00 Medical Branch Pneumonia Pneumonia Disease Active Uni vers due to due to 08 ity of COVID-19 COVID-19 00:00: [place] virus virus 00 Medical Branch Lower Lower Disease Active Univers respirator respirator 9-07 it y of y tract y tract 00:00: [place] infection infection 00 Medi diane due to due to Branch COVID-19 COVID-19 virus virus Morbid Morbid Disease Active 2019- Univers obesity obesity 9-07 ity of with body with body 00:00: Kristie s mass index mass index 00 Me dical of 50 or of 50 or Branch higher higher GASTRO GASTRO Diagnosis Active 2018-09-27 Me moria Active 09-04 07:13:00 l 09/04/2018 00:00: Edmund jacobson [address] Cough Cough Disease [facility] 00 Cassandra Generalize Generalize Disease Active 2018- [facility] headache d headache 3-11 [facility] kes 00:00: Medical 00 Cassandra STROKE STROKE Diagnosis Active 2018-06-13 Nv moria Active 06-13 04:41:00 l 06/13/2018 00:00: Edmund jacobson [address] ACUTE ACUTE Diagnosis Active 2018-06-22 Mem oria CEREBROVAS CEREBROVAS 06-13 22:17:00 l CULAR CULAR 00:00: Jimmy ACCIDENT ACCIDENT 00 Active 06/13/2018 [facility] Left-sided Left-sided Disease Active [facility] weakness weakness 12-08 [facility] 00:[facility]: Medical 00 Cassandra Status Status Disease Active [facility] administra administra 00:00: Me dical tion of tion of 00 Center tPA (rtPA) tPA (rtPA) in a in a different different facility facility within the within the last 24 last 24 hours hours prior to prior to admission admission to current to current facility facility Status Status Disease Active [facility] administra administra 00:00: Me dical tion of tion of 00 Center tPA (rtPA) tPA (rtPA) in a in a different different facility facility within the within the last 24 last 24 hours hours prior to prior to admission admission to current to up health system facility facility Acute Acute Disease Active [facility] ischemic ischemic [facility] stroke stroke 00:00: Medical 00 Cassandra [employer] Diagnosis Active 2017-12-07 Memoria Active 12-07 23:11:00 l 12/07/2017 00:00: Edmund jacobson [address] Headache, Headache, Disease Active 2016-[address] [facility] acute acute -20 [facility] 00:[facility]: Medical 00 Cassandra [employer] Diagnosis Active 2016-062017-04-06 Memoria FLIGHT FLIGHT 23:56:00 l Active 00:00: Jimmy 04/06/2017 00 [facility] CVA CVA Disease Active 2015-[address] (cerebral (cerebral 2-26 [facility] vascular vascular 00:00: Medica l accident) accident) 00 Cent er GERD GERD Disease Active Univers (gastroeso (gastroeso 8-05 it y of phageal phageal 00:00: [place] reflux reflux 00 Medical disease) disease) Branch IBS IBS Disease Active Univers (irritable (irritable 7-04 it y of bowel bowel 00:00: [place] syndrome) syndrome) 00 Medi diane Branch Knee pain, Knee pain, Disease Active U nivers right right 6-25 ity of 00:00: [place] 00 Medical Branch Knee pain, Knee pain, Disease Active U nivers right right 6-25 ity of 00:00: [place] 00 Medical Branch Asthma Asthma Disease Active Univers 5-01 ity of 00:00: [place] 00 Medical Branch History of History of Problem Resolve [place] cerebrovas cerebrovas d Ph ysici cular cular ans accident accident Obstructiv Obstructiv Problem Active U T e sleep e sleep Physici apnea, apnea, ans adult adult Depression Depression Problem Active U T Physici ans Hypertensi Hypertensi Problem Active U T on on Physici ans Chronic Chronic Problem Active [facility] back pain back pain Phys ici ans History of History of Problem Active U T kidney kidney Physici stones stones ans Hematuria Hematuria Problem Active [facility] Physici ans Lymphedema Lymphedema Problem Active U T of lower of lower Physic i extremity extremity ans Vitamin D Vitamin D Problem Active [facility] deficiency deficiency Ph ysici ans Body mass Body mas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ia index index 13:50:12 l (BMI) (BMI) Jimmy 60.0-69.9, 60.0-69.9, adult adult 01/02/2019 [facility] Encephalop Problem 2019-01-02 M eben castellanos, Encephalop 13:50:12 l unspecifie Edmund castellanos d unspecifie d 01/02/2019 [facility] Essential Essential Problem 2019-01-02 Memoria (primary) (primary) 13:50:12 l hypertensi hypertensi He rmann on on 01/02/2019 [facility] Morbid Morbid Problem 2019-01-02 Jose G rene (severe) (severe) 13:50:12 l obesity obesity Jimmy due to due to excess excess calories calories 01/02/2019 [facility] Type 2 Type 2 Problem 2019-01-02 Jose G rene diabetes diabetes 13:50:12 l mellitus mellitus Edmund jacobson with with hyperglyce hyperglyce gloria gloria 01/02/2019 [facility] Difficulty Difficult Problem 2019-01-02 Memoria in y in 13:50:12 l walking, walking, Edmund n not not elsewhere elsewhere classified classified 01/02/2019 [facility] Naranjo's Naranjo's Problem 2019-01-02 Jose G rene palsy palsy 13:50:12 l 01/02/2019 Edmund jacobson [facility] Encounter Encounter Problem 2019-01-02 Memoria for for 13:50:12 l immunizati immunizati He rmann on on 01/02/2019 [facility] Migraine, Migraine, Problem 2019-01-02 Memoria unspecifie unspecifie 13:50:12 l d, not d, not [place] intractabl intractabl e, without e, without status status migrainosu migrainosu s s 01/02/2019 [facility] Status Status Problem 2019-01-02 Jose G rene post post 13:50:12 l administra administra He rmann tion of tion of tPA (rtPA) tPA (rtPA) in a in a different different facility facility within the within the last 24 last 24 hours hours prior to prior to admission admission to current to current facility facility 01/02/2019 [facility] 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 Diabetes Diabetes Problem Active 2019-01-02 Memoria mellitus mellitus 13:50:12 l (disorder) (disorder) He rmann Active Problem 01/02/2019 [facility] Heartburn Heartburn Problem Active 2019-01-02 Memoria (finding) (finding) 13:50:12 l Active Jimmy Problem 01/02/2019 [facility] ILLNESS, ILLNESS, Diagnosis Active 2018-06-13 Memoria UNSPECIFIE UNSPECIFIE 04:41:00 l D D Active Jimmy [facility] CEREBRAL CEREBRAL Diagnosis Active 2018-06-22 Memoria INFARCTION INFARCTION 22:17:00 l , , Jimmy UNSPECIFIE UNSPECIFIE D D Active [facility] Illness, Illness, Problem 2019-01-02 Memoria unspecifie unspecifie 13:50:12 l d d Jimmy 01/02/2019 [facility] Acute Acute Problem 2019-01-02 Memor ia respirator respirator 13:50:12 l y failure y failure Herm mio with with hypoxia hypoxia 01/02/2019 [facility] Hemiplegia Hemiplegi Problem 2019-01-02 Memoria and a and 13:50:12 l hemiparesi hemiparesi He rmann s s following following cerebral cerebral infarction infarction affecting affecting left left non-domina non-domina nt side nt side 01/02/2019 [facility] History of Past Illness Condition Condition Condition Status Onset Resolution Last Treating Co mments Source Name Details Category Date Date Treatment Clinician Date Cerebral Cerebral Problem 2018-2019-01-02 2019-01-02 Memoria infarction infarction 1-11 13:50:12 13:50:12 l , , 05:33: Jimmy unspecifie unspecifie 29 d d 06/23/2018 01/02/2019 [facility] Allergies, Adverse Reactions, Alerts Allergy Allergy Status Severity Reaction(s) Onset Inactive Treating Comm ents Source Name Type Date Date Clinician amoxicil DA Active SV 2020- [facility] [place] [facility] amoxicil DA Active SV rash [facility]17 [place] 00:[facility] Penicill DA Active U 2019- [facility] ins 07[facility]02 [place] 00:[facility]: [facility] warfarin DA Active U 2019- [facility] 07-02 [place] 00:[facility] clopidog DA Active U 2019- [facility] rel 07-02 [place] 00:00: [facility] Penicill DA Active U UNKNOWN 2019- [facility] ins 07-02 [place] 00:00: [facility] warfarin DA Active U UNKNOWN 2019- [facility] 07-02 [place] 00:00: Health [facility] clopidog DA Active U UNKNOWN 2019- [facility] rel 07-02 [place] 00:00: [facility] AMOXICIL DRUG Active Rash 2018-06 Univers ED INGREDI 07-04 ity of 00:00: [place] 00 Medical Branch CLOPIDOG DRUG Active Rash 2018-06 Univers REL INGREDI 07-04 ity of BISULFAT 00:00: [place] E 00 Medical Branch WARFARIN DRUG Active Rash 2018-06 Univers INGREDI 07-04 ity of 00:00: [place] 00 Medical Branch Amoxicil Propensi Active Rash 2018-06 Univer s ed ty to 07-04 ity of adverse 00:00: [place] reaction 00 Medical s Branch Clopidog Propensi Active Rash 2018-06 Univer s rel ty to 07-04 ity of Bisulfat adverse 00:00: [place] e reaction 00 Medical s Branch Warfarin Propensi Active Rash 2018-06 Univer s ty to 07-04 ity of adverse 00:00: [place] reaction 00 Medical s Branch Clopidog Drug Active Other (See Decreases C [facility] rel Intolera Comments) 3 heartrate Liudmila kes nce 00:00: Medical 00 Center Warfarin Propensi Active Nausea And 2015-[address] [facility] to [facility]omiting 08-08 [facility] adverse 00:00: Medical reaction 00 Center s orphenad drug Active [facility] rine allergy Physici ans warfarin drug Active [facility] allergy Physici ans CLOPIDOG Allergy Active [facility] WARFARIN Allergy Active [facility] warfarin warfarin Active Memori a l Jimmy Plavix Plavix Active Memoria l [place] Family History Family Member Diagnosis Comments Start Date Stop Date Source Natural mother Diabetes [facility] Natural mother Hypertension [facility] Social History Social Habit Start Date Stop Date Quantity Comments Source History of tobacco Current smoker Un iversity of use [facility] Exposure to 2022-05-17 2022-05-27 Not sure University of SARS-CoV-2 (event) 00:00:00 14:42:00 [place] [facility] History SDOH 2020-02-18 2020-02-18 5 University o f Financial 00:00:00 00:00:00 [place] [facility] History SDNM Food 2020-02-18 2020-02-18 1 Univers ity of Worry 00:00:00 00:00:00 [facility] History SDNM Food 2020-02-18 2020-02-18 1 Univers ity of Scarcity 00:00:00 00:00:00 [facility] History SDOH 2020-02-18 2020-02-18 2 University o f Transport Med 00:00:00 00:00:00 [place] Medic al Branch History [facility] 2020-02-18 2020-02-18 2 University o f Transport Non-Med 00:00:00 00:00:00 [place] M edical [facility] Alcohol intake 2018-08-21 2018-08-[address] [facility] 00:00:00 00:00:00 non-drinker of Medical Ce nter alcohol (finding) Cigarettes smoked 2016-06-07 2016-06-[address] [facility] current (pack per 00:00:00 00:00:00 Medical Center day) - Reported Cigarette 2016-06-07 2016-06-[address] [facility] pack-years 00:00:00 00:00:00 [facility] Tobacco use and 2016-06-07 2016-06-[address] Liudmila kes exposure 00:00:00 00:00:00 [facility] Social History 2015-01-10 2015-01-10 [facility] 21:45:28 21:45:28 Sex Assigned At [address] [facility] Liudmila kes 00:00:00 00:00:00 [facility] Smoking Status Start Date Stop Date Source Ex-smoker 2022-01-04 00:00:00 2022-01-04 00:00:00 [facility] Medications Ordered Filled Start Stop Current Ordering Indication Dosage Frequency Signature Comments Components Source Medication Medication Date Date Medication? Clinician (SIG) Name Name pregabalin Yes [id number] 1 cap po Univers 75 mg 1-04 TID prn ity of capsule 00:00: low back [place] 00 pain. May Medical take extra Branch capsule once per day. pregabalin Yes [id number] 1 cap po Univers 75 mg 1-04 TID prn ity of capsule 00:00: low back [place] 00 pain. May Medical take extra Branch capsule once per day. pregabalin Yes [id number] 1 cap po Univers 75 mg 1-04 TID prn ity of capsule 00:00: low back [place] 00 pain. May Medical take extra Branch capsule once per day. pregabalin Yes [id number] 1 cap po Univers 75 mg 1-04 TID prn ity of capsule 00:00: low back [place] 00 pain. May Medical take extra Branch capsule once per day. pregabalin Yes [id number] 1 cap po Univers 75 mg 1-04 TID prn ity of capsule 00:00: low back [place] 00 pain. May Medical take extra Branch capsule once per day. methocarbam 2021-06 Yes [id number] 750mg Take 1 Univers oL 750 mg 2-15 tablet by ity o f tablet 00:00: mouth 4 (four) Medical times Branch daily as needed (muscle spasm, low back pain). For low back pain, muscle spasm. Alternate with cyclobenza manasa pregabalin 2021-06 Yes [id number] 1-2 cap po Univers 75 mg 2-15 TID prn ity of capsule 00:00: low back [place] 00 pain Medical Branch lidocaine 2021-06 Yes [id number] 3{patch Apply 3 Univers HCL 4 % 2-15 } Patches to ity of PtMd 00:00: area(s) as [place] needed Medical (pain). Branch Apply up to 3 patches to painful areas daily as needed. 12 hours on 12 hours off. cyclobenzap 2021-06 Yes [id number] 1/2 to 1 Univers rine 10 mg 2-15 tab po TID ity of tablet 00:00: prn muscle [place] 00 spasms, Medical low back Branch pain. Alternate with methocarba mol methocarbam 2021-06 Yes [id number] 750mg Take 1 Univers oL 750 mg 2-15 tablet by ity o f tablet 00:00: mouth 4 (four) Medical times Branch daily as needed (muscle spasm, low back pain). For low back pain, muscle spasm. Alternate with cyclobenza manasa pregabalin 2021-06 Yes [id number] 1-2 cap po Univers 75 mg 2-15 TID prn ity of capsule 00:00: low back [place] 00 pain Medical Branch lidocaine 2021-06 Yes [id number] 3{patch Apply 3 Univers HCL 4 % 2-15 } Patches to ity of PtMd 00:00: area(s) as [place] 00 needed Medical (pain). Branch Apply up to 3 patches to painful areas daily as needed. 12 hours on 12 hours off. cyclobenzap 2021-06 Yes [id number] 1/2 to 1 Univers rine 10 mg 2-15 tab po TID ity of tablet 00:00: prn muscle [place] 00 spasms, Medical low back Branch pain. Alternate with methocarba mol methocarbam 2021-06 Yes [id number] 750mg Take 1 Univers oL 750 mg 2-15 tablet by ity o f tablet 00:00: mouth 4 [place] 00 (four) Medical times Branch daily as needed (muscle spasm, low back pain). For low back pain, muscle spasm. Alternate with cyclobenza manasa pregabalin 2021-06 Yes [id number] 1-2 cap po Univers 75 mg 2-15 TID prn ity of capsule 00:00: low back [place] 00 pain Medical Branch lidocaine 2021-06 Yes [id number] 3{patch Apply 3 Univers HCL 4 % 2-15 } Patches to ity of PtMd 00:00: area(s) as [place] 00 needed Medical (pain). Branch Apply up to 3 patches to painful areas daily as needed. 12 hours on 12 hours off. cyclobenzap 2021-06 Yes [id number] 1/2 to 1 Univers rine 10 mg 2-15 tab po TID ity of tablet 00:00: prn muscle [place] 00 spasms, Medical low back Branch pain. Alternate with methocarba mol methocarbam 2021-06 Yes [id number] 750mg Take 1 Univers oL 750 mg 2-15 tablet by ity o f tablet 00:00: mouth 4 [place] 00 (four) Medical times Branch daily as needed (muscle spasm, low back pain). For low back pain, muscle spasm. Alternate with cyclobenza manasa pregabalin 2021-06 Yes [id number] 1-2 cap po [facility] 75 mg 2-15 TID prn ity of capsule 00:00: low back [place] 00 pain Medical Branch lidocaine 2021-06 Yes [id number] 3{patch Apply 3 [facility] HCL 4 % 2-15 } Patches to ity of PtMd 00:00: area(s) as [place] 00 needed Medical (pain). Branch Apply up to 3 patches to painful areas daily as needed. 12 hours on 12 hours off. cyclobenzap 2021-06 Yes [id number] 1/2 to 1 [facility] rine 10 mg 2-15 tab po TID ity of tablet 00:00: prn muscle [place] 00 spasms, Medical low back Branch pain. Alternate with methocarba mol methocarbam 2021-06 Yes [id number] 750mg Take 1 [facility] oL 750 mg 2-15 tablet by ity o f tablet 00:00: mouth 4 00 (four) Medical times Branch daily as needed (muscle spasm, low back pain). For low back pain, muscle spasm. Alternate with cyclobenza manasa pregabalin 2021-06 Yes [id number] 1-2 cap po [facility] 75 mg 2-15 TID prn ity of capsule 00:00: low back [place] 00 pain Medical Branch lidocaine 2021-06 Yes [id number] 3{patch Apply 3 [facility] HCL 4 % 2-15 } Patches to ity of PtMd 00:00: area(s) as [place] 00 needed Medical (pain). Branch Apply up to 3 patches to painful areas daily as needed. 12 hours on 12 hours off. cyclobenzap 2021-06 Yes [id number] 1/2 to 1 [facility] rine 10 mg 2-15 tab po TID ity of tablet 00:00: prn muscle [place] 00 spasms, Medical low back Branch pain. Alternate with methocarba mol methocarbam 2021-06 Yes [id number] 750mg Take 1 [facility] oL 750 mg 2-15 tablet by ity o f tablet 00:00: mouth 4 (four) Medical times Branch daily as needed (muscle spasm, low back pain). For low back pain, muscle spasm. Alternate with cyclobenza manasa pregabalin 2021-06 Yes [id number] 1-2 cap po [facility] 75 mg 2-15 TID prn ity of capsule 00:00: low back [place] pain Medical Branch lidocaine 2021-06 Yes [id number] 3{patch Apply 3 [facility] HCL 4 % 2-15 } Patches to ity of PtMd 00:00: area(s) as [place] 00 needed Medical (pain). Branch Apply up to 3 patches to painful areas daily as needed. 12 hours on 12 hours off. cyclobenzap 2021-06 Yes [id number] 1/2 to 1 [facility] rine 10 mg 2-15 tab po TID ity of tablet 00:00: prn muscle [place] 00 spasms, Medical low back Branch pain. Alternate with methocarba mol methocarbam 2021-06 Yes [id number] 750mg Take 1 [facility] oL 750 mg 2-15 tablet by ity o f tablet 00:00: mouth 4 (four) Medical times Branch daily as needed (muscle spasm, low back pain). For low back pain, muscle spasm. Alternate with cyclobenza manasa lidocaine 2021-06 Yes [id number] 3{patch Apply 3 [facility] HCL 4 % 2-15 } Patches to ity of PtMd 00:00: area(s) as [place] 00 needed Medical (pain). Branch Apply up to 3 patches to painful areas daily as needed. 12 hours on 12 hours off. cyclobenzap 2021-06 Yes [id number] 1/2 to 1 [facility] rine 10 mg 2-15 tab po TID ity of tablet 00:00: prn muscle [place] 00 spasms, Medical low back Branch pain. Alternate with methocarba mol methocarbam 2021-06 Yes [id number] 750mg Take 1 [facility] oL 750 mg 2-15 tablet by ity o f tablet 00:00: mouth 4 (four) Medical times Branch daily as needed (muscle spasm, low back pain). For low back pain, muscle spasm. Alternate with cyclobenza manasa lidocaine 2021-06 Yes [id number] 3{patch Apply 3 [facility] HCL 4 % 2-15 } Patches to ity of PtMd 00:00: area(s) as [place] 00 needed Medical (pain). Branch Apply up to 3 patches to painful areas daily as needed. 12 hours on 12 hours off. cyclobenzap 2021-06 Yes [id number] 1/2 to 1 [facility] rine 10 mg 2-15 tab po TID ity of tablet 00:00: prn muscle [place] 00 spasms, Medical low back Branch pain. Alternate with methocarba mol methocarbam 2021-06 Yes [id number] 750mg Take 1 [facility] oL 750 mg 2-15 tablet by ity o f tablet 00:00: mouth 4 (four) Medical times Branch daily as needed (muscle spasm, low back pain). For low back pain, muscle spasm. Alternate with cyclobenza manasa lidocaine 2021-06 Yes [id number] 3{patch Apply 3 [facility] HCL 4 % 2-15 } Patches to ity of PtMd 00:00: area(s) as [place] 00 needed Medical (pain). Branch Apply up to 3 patches to painful areas daily as needed. 12 hours on 12 hours off. cyclobenzap 2021-06 Yes [id number] 1/2 to 1 [facility] rine 10 mg 2-15 tab po TID ity of tablet 00:00: prn muscle [place] 00 spasms, Medical low back Branch pain. Alternate with methocarba mol methocarbam 2021-06 Yes [id number] 750mg Take 1 [facility] oL 750 mg 2-15 tablet by ity o f tablet 00:00: mouth 4 [place] 00 (four) Medical times Branch daily as needed (muscle spasm, low back pain). For low back pain, muscle spasm. Alternate with cyclobenza mansaa lidocaine 2021-06 Yes [id number] 3{patch Apply 3 [facility] HCL 4 % 2-15 } Patches to ity of PtMd 00:00: area(s) as [place] 00 needed Medical (pain). Branch Apply up to 3 patches to painful areas daily as needed. 12 hours on 12 hours off. cyclobenzap 2021-06 Yes [id number] /2 to 1 [facility] rine 10 mg 2-15 tab po TID ity of tablet 00:00: prn muscle [place] 00 spasms, Medical low back Branch pain. Alternate with methocarba mol methocarbam 2021-06 Yes [id number] 750mg Take 1 [facility] oL 750 mg 2-15 tablet by ity o f tablet 00:00: mouth 4 [place] 00 (four) Medical times Branch daily as needed (muscle spasm, low back pain). For low back pain, muscle spasm. Alternate with cyclobenza manasa lidocaine 2021-06 Yes [id number] 3{patch Apply 3 [facility] HCL 4 % 2-15 } Patches to ity of PtMd 00:00: area(s) as [place] 00 needed Medical (pain). Branch Apply up to 3 patches to painful areas daily as needed. 12 hours on 12 hours off. cyclobenzap 2021-06 Yes [id number] /2 to 1 [facility] rine 10 mg 2-15 tab po TID ity of tablet 00:00: prn muscle [place] 00 spasms, Medical low back Branch pain. Alternate with methocarba mol pregabalin 2021-06- No [id number] 1-2 cap po [facility] 75 mg 2-15 01-04 TID prn ity of capsule 00:00: 00:00 low back [place] 00 :00 pain Medical Branch pregabalin 2021-06- No [id number] 1-2 cap po [facility] 75 mg 2-15 06-16 TID prn ity of capsule 00:00: 00:00 low back [place] 00 :00 pain Medical Branch lidocaine 2021-06 Yes [id number] 3{patch Apply 3 [facility] HCL 4 % 2-13 } Patches to ity of PtMd 00:00: area(s) as [place] 00 needed Medical (pain). Branch Apply up to 3 patches to painful areas daily as needed. 12 hours on 12 hours off. lidocaine 2021-06- No [id number] 3{patch Apply 3 [facility] HCL 4 % 2-13 12-15 } Patches to ity o f PtMd 00:00: 00:00 area(s) as [place] 00 :00 needed Medical (pain). Branch Apply up to 3 patches to painful areas daily as needed. 12 hours on 12 hours off. lidocaine 2021-06- No [id number] 3{patch Apply 3 [facility] HCL 4 % 2-13 12-15 } Patches to ity o f PtMd 00:00: 00:00 area(s) as [place] 00 :00 needed Medical (pain). Branch Apply up to 3 patches to painful areas daily as needed. 12 hours on 12 hours off. iopamidol 2021-06- No [id number] 74mL 74 mL, U nivers (ISOVUE 07-19 Intravenou ity o f 370-500 mL) 20:30: 19:31 s, ONCE, 1 [place] injection 00 :00 dose, On Medica l 74 mL Tue [place] 05/18/22 at 1430, Routine methylPREDN 2021-06- Yes [id number] Take by [facility] ISolone 07-19 mouth ity of (MEDROL, 00:00: 05:[place] 4 mg 00 :00 CTIONS for Med ical tablets 5 days. Branch follow package directions methylPREDN 2021-06- Yes [id number] Take by [place] [facility] ISolone 07-19 mouth ity of (MEDROL, 00:00: 05:[place] 4 mg 00 :00 CTIONS for Med ical tablets 5 days. Branch follow package directions proMETHazin 2021-06 No 12.5mg 12.5 mg, [facility] e 06-15 IV ity of (PHENERGAN) 21:00: 20:56 Piggyback, [place] 12.5 mg in 00 :00 ONCE, 1 Medica l NaCl 0.9% dose, On Branch (NS) 50 mL Josselyn IV 04/15/22 at piggyback 1600, CADEN ondansetron 2021-06 No 4mg 4 mg, Slow [facility] (ZOFRAN 06-15 IV Push, ity of (PF)) 20:30: 20:18 ONCE, 1 [place] injection 4 00 :00 dose, On Medi diane mg [place] Branch 04/15/22 at 1530, CADEN morpHINE (4 2021-06 No 4mg 4 mg, Slow [facility] mg/mL) 06-15 IV Push, ity of injection 4 20:30: 20:18 ONCE, 1 [place] mg 00 :[place] dose, On Medical [place] Branch 04/15/22 at 1530, STAT iopamidol 2021-06 No [id number] 65mL 65 mL, U nivers (ISOVUE 06-15 Intravenou ity o f 370-500 mL) 20:15: 20:05 s, ONCE, 1 [place] injection 00 :00 dose, On Medica l 65 mL [place] Branch 04/15/22 at 1515, Routine maalox:diph 2021-06 No 15mL 15 mL, Uni vers enhydrAMINE 06-15 Oral, ity of :lidocaine 19:30: 19:25 ONCE, 1 [place] 2 % viscous 00 :00 dose, On Medi idane 1:1:1 [place] Branch ([facility] 04/15/22 at [facility]) 1430, oral Routine suspension 15 mL aspirin 2021-06 No 325mg 325 mg, Unive rs tablet 325 06-15 Oral, ity of mg 19:15: 19:25 ONCE, 1 [place] 00 :00 dose, On Medical Joss[place] Branch 04/15/22 at 1415, STAT ondansetron 2021-06 Yes [id number] 4mg Take 1 [facility] 4 mg 1-03 tablet by ity of disintegrat 00:00: mouth [place] ing tablet 00 every 8 Medica l (eight) Branch hours as needed for Nausea and Vomiting (N/V) for up to 10 doses. ondansetron 2021-06 Yes [id number] 4mg Take 1 [facility] 4 mg 1-03 tablet by ity of disintegrat 00:00: mouth [place] ing tablet 00 every 8 Medica l (eight) Branch hours as needed for Nausea and Vomiting (N/V) for up to 10 doses. ondansetron 2021-06 Yes [id number] 4mg Take 1 [facility] 4 mg 1-03 tablet by ity of disintegrat 00:00: mouth [place] ing tablet 00 every 8 Medica l (eight) Branch hours as needed for Nausea and Vomiting (N/V) for up to 10 doses. ondansetron 2021-06 Yes [id number] 4mg Take 1 [facility] 4 mg 1-03 tablet by ity of disintegrat 00:00: mouth [place] ing tablet 00 every 8 Medica l (eight) Branch hours as needed for Nausea and Vomiting (N/V) for up to 10 doses. ondansetron 2021-06 Yes [id number] 4mg Take 1 [facility] 4 mg 1-03 tablet by ity of disintegrat 00:00: mouth [place] ing tablet 00 every 8 Medica l (eight) Branch hours as needed for Nausea and Vomiting (N/V) for up to 10 doses. ondansetron 2021-06 Yes [id number] 4mg Take 1 [facility] 4 mg 1-03 tablet by ity of disintegrat 00:00: mouth [place] ing tablet 00 every 8 Medica l (eight) Branch hours as needed for Nausea and Vomiting (N/V) for up to 10 doses. ondansetron 2021-06 Yes [id number] 4mg Take 1 [facility] 4 mg 1-03 tablet by ity of disintegrat 00:00: mouth [place] ing tablet 00 every 8 Medica l (eight) Branch hours as needed for Nausea and Vomiting (N/V) for up to 10 doses. ondansetron 2021-06 Yes [id number] 4mg Take 1 [facility] 4 mg 1-03 tablet by ity of disintegrat 00:00: mouth [place] ing tablet 00 every 8 Medica l (eight) Branch hours as needed for Nausea and Vomiting (N/V) for up to 10 doses. ondansetron 2021-06 Yes [id number] 4mg Take 1 [facility] 4 mg 1-03 tablet by ity of disintegrat 00:00: mouth [place] ing tablet 00 every 8 Medica l (eight) Branch hours as needed for Nausea and Vomiting (N/V) for up to 10 doses. ondansetron 2021-06 Yes [id number] 4mg Take 1 [facility] 4 mg 1-03 tablet by ity of disintegrat 00:00: mouth [place] ing tablet 00 every 8 Medica l (eight) Branch hours as needed for Nausea and Vomiting (N/V) for up to 10 doses. ondansetron 2021-06 Yes [id number] 4mg Take 1 [facility] 4 mg 1-03 tablet by ity of disintegrat 00:00: mouth [place] ing tablet 00 every 8 Medica l (eight) Branch hours as needed for Nausea and Vomiting (N/V) for up to 10 doses. ondansetron 2021-06 Yes [id number] 4mg Take 1 [facility] 4 mg 1-03 tablet by ity of disintegrat 00:00: mouth [place] ing tablet 00 every 8 Medica l (eight) Branch hours as needed for Nausea and Vomiting (N/V) for up to 10 doses. ondansetron 2021-06 Yes [id number] 4mg Take 1 [facility] 4 mg 1-03 tablet by ity of disintegrat 00:00: mouth [place] ing tablet 00 every 8 Medica l (eight) Branch hours as needed for Nausea and Vomiting (N/V) for up to 10 doses. ondansetron 2021-06 Yes [id number] 4mg Take 1 [facility] 4 mg 1-03 tablet by ity of disintegrat 00:00: mouth [place] ing tablet 00 every 8 Medica l (eight) Branch hours as needed for Nausea and Vomiting (N/V) for up to 10 doses. ondansetron 2021-06 Yes [id number] 4mg Take 1 [facility] 4 mg 1-03 tablet by ity of disintegrat 00:00: mouth [place] ing tablet 00 every 8 Medica l (eight) Branch hours as needed for Nausea and Vomiting (N/V) for up to 10 doses. ondansetron 2021-06 Yes [id number] 4mg Take 1 [facility] 4 mg 1-03 tablet by ity of disintegrat 00:00: mouth [place] ing tablet 00 every 8 Medica l (eight) Branch hours as needed for Nausea and Vomiting (N/V) for up to 10 doses. ondansetron 2021-06 Yes [id number] 4mg Take 1 [facility] 4 mg 1-03 tablet by ity of disintegrat 00:00: mouth [place] ing tablet 00 every 8 Medica l (eight) Branch hours as needed for Nausea and Vomiting (N/V) for up to 10 doses. ondansetron 2021-06 Yes [id number] 4mg Take 1 [facility] 4 mg 1-03 tablet by ity of disintegrat 00:00: mouth [place] ing tablet 00 every 8 Medica l (eight) Branch hours as needed for Nausea and Vomiting (N/V) for up to 10 doses. ondansetron 2021-06 Yes [id number] 4mg Take 1 [facility] 4 mg 1-03 tablet by ity of disintegrat 00:00: mouth [place] ing tablet 00 every 8 Medica l (eight) Branch hours as needed for Nausea and Vomiting (N/V) for up to 10 doses. ondansetron 2021-06 Yes [id number] 4mg Take 1 [facility] 4 mg 1-03 tablet by ity of disintegrat 00:00: mouth [place] ing tablet 00 every 8 Medica l (eight) Branch hours as needed for Nausea and Vomiting (N/V) for up to 10 doses. meloxicam 0 Yes [id number] 7.5mg Take 1 [facility] 7.5 mg 9-30 tablet by ity of tablet 00:00: mouth in [place] 00 the Medical morning. Branch meloxicam 0 Yes [id number] 7.5mg Take 1 [facility] 7.5 mg 9-30 tablet by ity of tablet 00:00: mouth in [place] the Medical morning. Branch meloxicam 2021-0 Yes [id number] 7.5mg Take 1 [facility] 7.5 mg 9-30 tablet by ity of tablet 00:00: mouth in [place] the Medical morning. Branch meloxicam 0 Yes [id number] 7.5mg Take 1 [facility] 7.5 mg 9-30 tablet by ity of tablet 00:00: mouth in [place] the Medical morning. Branch meloxicam 2021-0 Yes [id number] 7.5mg Take 1 [facility] 7.5 mg 9-30 tablet by ity of tablet 00:00: mouth in [place] the Medical morning. Branch meloxicam 2021-0 Yes [id number] 7.5mg Take 1 [facility] 7.5 mg 9-30 tablet by ity of tablet 00:00: mouth in [place] the Medical morning. Branch meloxicam 2021-0 Yes [id number] 7.5mg Take 1 [facility] 7.5 mg 9-30 tablet by ity of tablet 00:00: mouth in [place] the Medical morning. Branch meloxicam 2021-0 Yes [id number] 7.5mg Take 1 [facility] 7.5 mg 9-30 tablet by ity of tablet 00:00: mouth in [place] the Medical morning. Branch meloxicam 2021-0 Yes [id number] 7.5mg Take 1 [facility] 7.5 mg 9-30 tablet by ity of tablet 00:00: mouth in [place] the Medical morning. Branch meloxicam 0 Yes [id number] 7.5mg Take 1 [facility] 7.5 mg 9-30 tablet by ity of tablet 00:00: mouth in [place] the Medical morning. Branch meloxicam 2021-0 Yes [id number] 7.5mg Take 1 [facility] 7.5 mg 9-30 tablet by ity of tablet 00:00: mouth in [place] the Medical morning. Branch meloxicam 2021-0 Yes [id number] 7.5mg Take 1 [facility] 7.5 mg 9-30 tablet by ity of tablet 00:00: mouth in [place] the Medical morning. Branch meloxicam 2021-0 Yes [id number] 7.5mg Take 1 [facility] 7.5 mg 9-30 tablet by ity of tablet 00:00: mouth in [place] the Medical morning. Branch meloxicam 2021-0 Yes [id number] 7.5mg Take 1 [facility] 7.5 mg 9-30 tablet by ity of tablet 00:00: mouth in [place] the Medical morning. Branch meloxicam 2021-0 Yes [id number] 7.5mg Take 1 [facility] 7.5 mg 9-30 tablet by ity of tablet 00:00: mouth in [place] the Medical morning. Branch meloxicam 2021-0 Yes [id number] 7.5mg Take 1 [facility] 7.5 mg 9-30 tablet by ity of tablet 00:00: mouth in [place] the Medical morning. Branch meloxicam 2021-0 Yes [id number] 7.5mg Take 1 [facility] 7.5 mg 9-30 tablet by ity of tablet 00:00: mouth in [place] the Medical morning. Branch meloxicam 2021-0 Yes [id number] 7.5mg Take 1 [facility] 7.5 mg 9-30 tablet by ity of tablet 00:00: mouth in [place] the Medical morning. Branch meloxicam 2021-0 Yes [id number] 7.5mg Take 1 [facility] 7.5 mg 9-30 tablet by ity of tablet 00:00: mouth in [place] the Medical morning. Branch meloxicam 2021-0 Yes [id number] 7.5mg Take 1 [facility] 7.5 mg 9-30 tablet by ity of tablet 00:00: mouth in [place] the Medical morning. Branch meloxicam 2021-0 Yes [id number] 7.5mg Take 1 [facility] 7.5 mg 9-30 tablet by ity of tablet 00:00: mouth in [place] the Medical morning. Branch meloxicam 2021-0 Yes [id number] 7.5mg Take 1 [facility] 7.5 mg 9-30 tablet by ity of tablet 00:00: mouth in [place] the Medical morning. Branch meloxicam 2021-0 Yes [id number] 7.5mg Take 1 [facility] 7.5 mg 9-30 tablet by ity of tablet 00:00: mouth in [place] the Medical morning. Branch meloxicam 2021-0 Yes [id number] 7.5mg Take 1 [facility] 7.5 mg 9-30 tablet by ity of tablet 00:00: mouth in [place] the Medical morning. Branch meloxicam 2021-0 Yes [id number] 7.5mg Take 1 [facility] 7.5 mg 9-30 tablet by ity of tablet 00:00: mouth in [place] the Medical morning. Branch meloxicam 2021-0 Yes [id number] 7.5mg Take 1 [facility] 7.5 mg 9-30 tablet by ity of tablet 00:00: mouth in [place] the Medical morning. Branch meloxicam 2021-0 Yes [id number] 7.5mg Take 1 [facility] 7.5 mg 9-30 tablet by ity of tablet 00:00: mouth in [place] 00 the Medical morning. Branch meloxicam 2-0 Yes [id number] 7.5mg Take 1 [facility] 7.5 mg 9-30 tablet by ity of tablet 00:00: mouth in [place] 00 the Medical morning. Branch meloxicam 2-0 Yes [id number] 7.5mg Take 1 [facility] 7.5 mg 9-30 tablet by ity of tablet 00:00: mouth in [place] 00 the Medical morning. Branch ibuprofen 2021-0 Yes [id number] 600mg Take 1 [facility] 600 mg 9-11 tablet by ity of tablet 00:00: mouth [place] 00 every 6 Medical (six) Branch hours as needed for Pain (scale 4-6) for up to 30 doses. ibuprofen 2021-0 Yes [id number] 600mg Take 1 [facility] 600 mg 9-11 tablet by ity of tablet 00:00: mouth [place] 00 every 6 Medical (six) Branch hours as needed for Pain (scale 4-6) for up to 30 doses. ibuprofen 2021-0 Yes [id number] 600mg Take 1 [facility] 600 mg 9-11 tablet by ity of tablet 00:00: mouth [place] 00 every 6 Medical (six) Branch hours as needed for Pain (scale 4-6) for up to 30 doses. ibuprofen 2-0 Yes [id number] 600mg Take 1 [facility] 600 mg 9-11 tablet by ity of tablet 00:00: mouth [place] 00 every 6 Medical (six) Branch hours as needed for Pain (scale 4-6) for up to 30 doses. ibuprofen 2-0 Yes [id number] 600mg Take 1 [facility] 600 mg 9-11 tablet by ity of tablet 00:00: mouth [place] 00 every 6 Medical (six) Branch hours as needed for Pain (scale 4-6) for up to 30 doses. ibuprofen 2022-0 Yes [id number] 600mg Take 1 [facility] 600 mg 9-11 tablet by ity of tablet 00:00: mouth [place] 00 every 6 Medical (six) Branch hours as needed for Pain (scale 4-6) for up to 30 doses. ibuprofen 2-0 Yes [id number] 600mg Take 1 [facility] 600 mg 9-11 tablet by ity of tablet 00:00: mouth [place] 00 every 6 Medical (six) Branch hours as needed for Pain (scale 4-6) for up to 30 doses. ibuprofen 2022-0 Yes [id number] 600mg Take 1 [facility] 600 mg 9-11 tablet by ity of tablet 00:00: mouth [place] 00 every 6 Medical (six) Branch hours as needed for Pain (scale 4-6) for up to 30 doses. ibuprofen 2022-0 Yes [id number] 600mg Take 1 [facility] 600 mg 9-11 tablet by ity of tablet 00:00: mouth [place] 00 every 6 Medical (six) Branch hours as needed for Pain (scale 4-6) for up to 30 doses. ibuprofen 2022-0 Yes [id number] 600mg Take 1 [facility] 600 mg 9-11 tablet by ity of tablet 00:00: mouth [place] 00 every 6 Medical (six) Branch hours as needed for Pain (scale 4-6) for up to 30 doses. ibuprofen 2022-0 Yes [id number] 600mg Take 1 [facility] 600 mg 9-11 tablet by ity of tablet 00:00: mouth [place] 00 every 6 Medical (six) Branch hours as needed for Pain (scale 4-6) for up to 30 doses. ibuprofen 2022-0 Yes [id number] 600mg Take 1 [facility] 600 mg 9-11 tablet by ity of tablet 00:00: mouth [place] 00 every 6 Medical (six) Branch hours as needed for Pain (scale 4-6) for up to 30 doses. ibuprofen 2022-0 Yes [id number] 600mg Take 1 [facility] 600 mg 9-11 tablet by ity of tablet 00:00: mouth [place] 00 every 6 Medical (six) Branch hours as needed for Pain (scale 4-6) for up to 30 doses. ibuprofen 2022-0 Yes [id number] 600mg Take 1 [facility] 600 mg 9-11 tablet by ity of tablet 00:00: mouth [place] 00 every 6 Medical (six) Branch hours as needed for Pain (scale 4-6) for up to 30 doses. ibuprofen 2022-0 Yes [id number] 600mg Take 1 [facility] 600 mg 9-11 tablet by ity of tablet 00:00: mouth [place] 00 every 6 Medical (six) Branch hours as needed for Pain (scale 4-6) for up to 30 doses. ibuprofen 2022-0 Yes [id number] 600mg Take 1 [facility] 600 mg 9-11 tablet by ity of tablet 00:00: mouth [place] 00 every 6 Medical (six) Branch hours as needed for Pain (scale 4-6) for up to 30 doses. ibuprofen 2022-0 Yes [id number] 600mg Take 1 [facility] 600 mg 9-11 tablet by ity of tablet 00:00: mouth [place] 00 every 6 Medical (six) Branch hours as needed for Pain (scale 4-6) for up to 30 doses. ibuprofen 2022-0 Yes [id number] 600mg Take 1 [facility] 600 mg 9-11 tablet by ity of tablet 00:00: mouth [place] 00 every 6 Medical (six) Branch hours as needed for Pain (scale 4-6) for up to 30 doses. ibuprofen 2022-0 Yes [id number] 600mg Take 1 [facility] 600 mg 9-11 tablet by ity of tablet 00:00: mouth [place] 00 every 6 Medical (six) Branch hours as needed for Pain (scale 4-6) for up to 30 doses. ibuprofen 2022-0 Yes [id number] 600mg Take 1 [facility] 600 mg 9-11 tablet by ity of tablet 00:00: mouth [place] 00 every 6 Medical (six) Branch hours as needed for Pain (scale 4-6) for up to 30 doses. ibuprofen 2022-0 Yes [id number] 600mg Take 1 [facility] 600 mg 9-11 tablet by ity of tablet 00:00: mouth [place] 00 every 6 Medical (six) Branch hours as needed for Pain (scale 4-6) for up to 30 doses. ibuprofen 2022-0 Yes [id number] 600mg Take 1 [facility] 600 mg 9-11 tablet by ity of tablet 00:00: mouth [place] 00 every 6 Medical (six) Branch hours as needed for Pain (scale 4-6) for up to 30 doses. ibuprofen 2022-0 Yes [id number] 600mg Take 1 [facility] 600 mg 9-11 tablet by ity of tablet 00:00: mouth [place] 00 every 6 Medical (six) Branch hours as needed for Pain (scale 4-6) for up to 30 doses. ibuprofen 2022-0 Yes [id number] 600mg Take 1 [facility] 600 mg 9-11 tablet by ity of tablet 00:00: mouth [place] 00 every 6 Medical (six) Branch hours as needed for Pain (scale 4-6) for up to 30 doses. ibuprofen 2022-0 Yes [id number] 600mg Take 1 [facility] 600 mg 9-11 tablet by ity of tablet 00:00: mouth [place] 00 every 6 Medical (six) Branch hours as needed for Pain (scale 4-6) for up to 30 doses. ibuprofen 2-0 Yes [id number] 600mg Take 1 [facility] 600 mg 9-11 tablet by ity of tablet 00:00: mouth [place] 00 every 6 Medical (six) Branch hours as needed for Pain (scale 4-6) for up to 30 doses. ibuprofen 2021-0 Yes [id number] 600mg Take 1 [facility] 600 mg 9-11 tablet by ity of tablet 00:00: mouth [place] 00 every 6 Medical (six) Branch hours as needed for Pain (scale 4-6) for up to 30 doses. ibuprofen 2021-0 Yes [id number] 600mg Take 1 [facility] 600 mg 9-11 tablet by ity of tablet 00:00: mouth [place] 00 every 6 Medical (six) Branch hours as needed for Pain (scale 4-6) for up to 30 doses. ibuprofen 2021-0 Yes [id number] 600mg Take 1 [facility] 600 mg 9-11 tablet by ity of tablet 00:00: mouth [place] 00 every 6 Medical (six) Branch hours as needed for Pain (scale 4-6) for up to 30 doses. ibuprofen 2021-0 Yes [id number] 600mg Take 1 [facility] 600 mg 9-11 tablet by ity of tablet 00:00: mouth [place] 00 every 6 Medical (six) Branch hours as needed for Pain (scale 4-6) for up to 30 doses. ibuprofen 2-0 Yes [id number] 600mg Take 1 [facility] 600 mg 9-11 tablet by ity of tablet 00:00: mouth [place] 00 every 6 Medical (six) Branch hours as needed for Pain (scale 4-6) for up to 30 doses. ibuprofen 2022-0 Yes [id number] 600mg Take 1 [facility] 600 mg 9-11 tablet by ity of tablet 00:00: mouth [place] 00 every 6 Medical (six) Branch hours as needed for Pain (scale 4-6) for up to 30 doses. ibuprofen 2-0 Yes [id number] 600mg Take 1 [facility] 600 mg 9-11 tablet by ity of tablet 00:00: mouth [place] 00 every 6 Medical (six) Branch hours as needed for Pain (scale 4-6) for up to 30 doses. ibuprofen 2022-0 Yes [id number] 600mg Take 1 [facility] 600 mg 9-11 tablet by ity of tablet 00:00: mouth [place] 00 every 6 Medical (six) Branch hours as needed for Pain (scale 4-6) for up to 30 doses. ibuprofen 2-0 Yes [id number] 600mg Take 1 [facility] 600 mg 9-11 tablet by ity of tablet 00:00: mouth [place] 00 every 6 Medical (six) Branch hours as needed for Pain (scale 4-6) for up to 30 doses. ibuprofen 2021-0 Yes [id number] 600mg Take 1 [facility] 600 mg 9-11 tablet by ity of tablet 00:00: mouth [place] 00 every 6 Medical (six) Branch hours as needed for Pain (scale 4-6) for up to 30 doses. ibuprofen 2021-0 Yes [id number] 600mg Take 1 [facility] 600 mg 9-11 tablet by [facility] tablet 00:00: mouth [place] 00 every 6 Medical (six) Branch hours as needed for Pain (scale 4-6) for up to 30 doses. ibuprofen 2021-0 Yes [id number] 600mg Take 1 [facility] 600 mg 9-11 tablet by [facility] tablet 00:00: mouth [place] 00 every 6 Medical (six) Branch hours as needed for Pain (scale 4-6) for up to 30 doses. ibuprofen 2021-0 Yes [id number] 600mg Take 1 [facility] 600 mg 9-11 tablet by [facility] tablet 00:00: mouth [place] 00 every 6 Medical (six) Branch hours as needed for Pain (scale 4-6) for up to 30 doses. ibuprofen 2-0 Yes [id number] 600mg Take 1 [facility] 600 mg 9-11 tablet by [facility] tablet 00:00: mouth [place] 00 every 6 Medical (six) Branch hours as needed for Pain (scale 4-6) for up to 30 doses. ibuprofen 2022-0 Yes [id number] 600mg Take 1 [facility] 600 mg 9-11 tablet by [facility] tablet 00:00: mouth [place] 00 every 6 Medical (six) Branch hours as needed for Pain (scale 4-6) for up to 30 doses. cyclobenzap 2-0 2022- No [id number] 10mg Take 1 [facility] rine 10 mg 9-11 -19 tablet by [facility] tablet 00:00: 04:59 mouth in [place] 00 :00 the Medical morning Branch and 1 tablet at noon and 1 tablet in the evening. Do all this for 20 doses. cyclobenzap 2021-0 2021- No [id number] 10mg Take 1 [facility] rine 10 mg 9-03-01 tablet by [facility] tablet 00:00: 04:59 mouth in [place] 00 :00 the Medical morning Branch and 1 tablet at noon and 1 tablet in the evening. Do all this for 20 doses. cyclobenzap 2021-0 2021- No [id number] 10mg Take 1 [facility] rine 10 mg -03-01 tablet by [facility] tablet 00:00: 04:59 mouth in [place] 00 :00 the Medical morning Branch and 1 tablet at noon and 1 tablet in the evening. Do all this for 20 doses. acetaminoph 2022-0 Yes [id number] 1{tbl} Take 1 [facility] en-codeine 7-16 tablet by [facility] 300-30 mg 00:00: mouth [place] tablet 00 every 6 Medical (six) Branch hours as needed for Pain (scale 4-6). Indication s: acute pain methocarbam 2022-0 Yes [id number] 500mg Take 1 [facility] oL 500 mg 7-16 tablet by [facility] o f tablet 00:00: mouth 4 (four) Medical times Branch daily as needed for Pain (scale 1-3). acetaminoph 2022-0 Yes [id number] 1{tbl} Take 1 [facility] en-codeine 7-16 tablet by [facility] of 300-30 mg 00:00: mouth [place] tablet 00 every 6 Medical (six) Branch hours as needed for Pain (scale 4-6). Indication s: acute pain methocarbam 2022-0 Yes [id number] 500mg Take 1 [facility] oL 500 mg 7-16 tablet by [facility] o f tablet 00:00: mouth 4 [place] 00 (four) Medical times Branch daily as needed for Pain (scale 1-3). acetaminoph 2022-0 Yes [id number] 1{tbl} Take 1 [facility] en-codeine 7-16 tablet by [facility] 300-30 mg 00:00: mouth [place] tablet 00 every 6 Medical (six) Branch hours as needed for Pain (scale 4-6). Indication s: acute pain methocarbam 2022-0 Yes [id number] 500mg Take 1 [facility] oL 500 mg 7-16 tablet by [facility] o f tablet 00:00: mouth 4 [place] 00 (four) Medical times Branch daily as needed for Pain (scale 1-3). acetaminoph 2022-0 Yes [id number] 1{tbl} Take 1 [facility] en-codeine 7-16 tablet by [facility] 300-30 mg 00:00: mouth [place] tablet 00 every 6 Medical (six) Branch hours as needed for Pain (scale 4-6). Indication s: acute pain methocarbam 2-0 Yes [id number] 500mg Take 1 [facility] oL 500 mg 7-16 tablet by [facility] o f tablet 00:00: mouth 4 [place] 00 (four) Medical times Branch daily as needed for Pain (scale 1-3). acetaminoph 2021-0 Yes [id number] 1{tbl} Take 1 [facility] en-codeine 7-16 tablet by [facility] of 300-30 mg 00:00: mouth [place] tablet 00 every 6 Medical (six) Branch hours as needed for Pain (scale 4-6). Indication s: acute pain methocarbam 2-0 Yes [id number] 500mg Take 1 [facility] oL 500 mg 7-16 tablet by [facility] o f tablet 00:00: mouth 4 [place] 00 (four) Medical times Branch daily as needed for Pain (scale 1-3). acetaminoph 2-0 Yes 4647 1{tbl} Take 1 [facility] en-codeine 7-16 tablet by [facility] of 300-30 mg 00:00: mouth [place] tablet 00 every 6 Medical (six) Branch hours as needed for Pain (scale 4-6). Indication s: acute pain methocarbam 2022-0 Yes [id number] 500mg Take 1 [facility] oL 500 mg 7-16 tablet by [facility] o f tablet 00:00: mouth 4 [place] 00 (four) Medical times Branch daily as needed for Pain (scale 1-3). acetaminoph 2022-0 Yes [id number] 1{tbl} Take 1 [facility] en-codeine 7-16 tablet by [facility] of 300-30 mg 00:00: mouth [place] tablet 00 every 6 Medical (six) Branch hours as needed for Pain (scale 4-6). Indication s: acute pain methocarbam 2022-0 Yes [id number] 500mg Take 1 [facility] oL 500 mg 7-16 tablet by [facility] o f tablet 00:00: mouth 4 [place] 00 (four) Medical times Branch daily as needed for Pain (scale 1-3). acetaminoph 2022-0 Yes [id number] 1{tbl} Take 1 [facility] en-codeine 7-16 tablet by [facility] of 300-30 mg 00:00: mouth [place] tablet 00 every 6 Medical (six) Branch hours as needed for Pain (scale 4-6). Indication s: acute pain methocarbam 2022-0 Yes [id number] 500mg Take 1 [facility] oL 500 mg 7-16 tablet by [facility] o f tablet 00:00: mouth 4 [place] 00 (four) Medical times Branch daily as needed for Pain (scale 1-3). acetaminoph 2022-0 Yes 4647 1{tbl} Take 1 [facility] en-codeine 7-16 tablet by [facility] 300-30 mg 00:00: mouth [place] tablet 00 every 6 Medical (six) Branch hours as needed for Pain (scale 4-6). Indication s: acute pain methocarbam 2022-0 Yes [id number] 500mg Take 1 [facility] oL 500 mg 7-16 tablet by [facility] o f tablet 00:00: mouth 4 [place] 00 (four) Medical times Branch daily as needed for Pain (scale 1-3). acetaminoph 2022-0 Yes 4647 1{tbl} Take 1 [facility] en-codeine 7-16 tablet by [facility] of 300-30 mg 00:00: mouth [place] tablet 00 every 6 Medical (six) Branch hours as needed for Pain (scale 4-6). Indication s: acute pain methocarbam 2022-0 Yes [id number] 500mg Take 1 [facility] oL 500 mg 7-16 tablet by [facility] o f tablet 00:00: mouth 4 [place] 00 (four) Medical times Branch daily as needed for Pain (scale 1-3). acetaminoph 2022-0 Yes [id number] 1{tbl} Take 1 [facility] en-codeine 7-16 tablet by [facility] of 300-30 mg 00:00: mouth [place] tablet 00 every 6 Medical (six) Branch hours as needed for Pain (scale 4-6). Indication s: acute pain methocarbam 2022-0 Yes [id number] 500mg Take 1 [facility] oL 500 mg 7-16 tablet by [facility] o f tablet 00:00: mouth 4 [place] 00 (four) Medical times Branch daily as needed for Pain (scale 1-3). acetaminoph 2022-0 Yes [id number] 1{tbl} Take 1 [facility] en-codeine 7-16 tablet by [facility] 300-30 mg 00:00: mouth [place] tablet 00 every 6 Medical (six) Branch hours as needed for Pain (scale 4-6). Indication s: acute pain methocarbam 2022-0 Yes [id number] 500mg Take 1 [facility] oL 500 mg 7-16 tablet by [facility] o f tablet 00:00: mouth 4 [place] 00 (four) Medical times Branch daily as needed for Pain (scale 1-3). acetaminoph 2022-0 Yes [id number] 1{tbl} Take 1 [facility] en-codeine 7-16 tablet by [facility] of 300-30 mg 00:00: mouth [place] tablet 00 every 6 Medical (six) Branch hours as needed for Pain (scale 4-6). Indication s: acute pain methocarbam 2022-0 Yes [id number] 500mg Take 1 [facility] oL 500 mg 7-16 tablet by [facility] o f tablet 00:00: mouth 4 [place] 00 (four) Medical times Branch daily as needed for Pain (scale 1-3). acetaminoph 2022-0 Yes [id number] 1{tbl} Take 1 [facility] en-codeine 7-16 tablet by [facility] of 300-30 mg 00:00: mouth [place] tablet 00 every 6 Medical (six) Branch hours as needed for Pain (scale 4-6). Indication s: acute pain methocarbam 2022-0 Yes [id number] 500mg Take 1 [facility] oL 500 mg 7-16 tablet by [facility] o f tablet 00:00: mouth 4 [place] 00 (four) Medical times Branch daily as needed for Pain (scale 1-3). acetaminoph 2022-0 Yes [id number] 1{tbl} Take 1 [facility] en-codeine 7-16 tablet by [facility] of 300-30 mg 00:00: mouth [place] tablet 00 every 6 Medical (six) Branch hours as needed for Pain (scale 4-6). Indication s: acute pain methocarbam 2022-0 Yes [id number] 500mg Take 1 [facility] oL 500 mg 7-16 tablet by [facility] o f tablet 00:00: mouth 4 [place] 00 (four) Medical times Branch daily as needed for Pain (scale 1-3). acetaminoph 2022-0 Yes [id number] 1{tbl} Take 1 [facility] en-codeine 7-16 tablet by [facility] of 300-30 mg 00:00: mouth [place] tablet 00 every 6 Medical (six) Branch hours as needed for Pain (scale 4-6). Indication s: acute pain methocarbam 2022-0 Yes [id number] 500mg Take 1 [facility] oL 500 mg 7-16 tablet by [facility] o f tablet 00:00: mouth 4 [place] 00 (four) Medical times Branch daily as needed for Pain (scale 1-3). acetaminoph 2022-0 Yes [id number] 1{tbl} Take 1 [facility] en-codeine 7-16 tablet by [facility] 300-30 mg 00:00: mouth [place] tablet 00 every 6 Medical (six) Branch hours as needed for Pain (scale 4-6). Indication s: acute pain methocarbam 2022-0 Yes [id number] 500mg Take 1 [facility] oL 500 mg 7-16 tablet by [facility] o f tablet 00:00: mouth 4 [place] 00 (four) Medical times Branch daily as needed for Pain (scale 1-3). acetaminoph 2022-0 Yes [id number] 1{tbl} Take 1 [facility] en-codeine 7-16 tablet by [facility] of 300-30 mg 00:00: mouth [place] tablet 00 every 6 Medical (six) Branch hours as needed for Pain (scale 4-6). Indication s: acute pain methocarbam 2022-0 Yes [id number] 500mg Take 1 [facility] oL 500 mg 7-16 tablet by [facility] o f tablet 00:00: mouth 4 [place] 00 (four) Medical times Branch daily as needed for Pain (scale 1-3). acetaminoph 2022-0 Yes [id number] 1{tbl} Take 1 [facility] en-codeine 7-16 tablet by [facility] of 300-30 mg 00:00: mouth [place] tablet 00 every 6 Medical (six) Branch hours as needed for Pain (scale 4-6). Indication s: acute pain methocarbam 2022-0 Yes [id number] 500mg Take 1 [facility] oL 500 mg 7-16 tablet by [facility] o f tablet 00:00: mouth 4 [place] 00 (four) Medical times Branch daily as needed for Pain (scale 1-3). acetaminoph 2022-0 Yes [id number] 1{tbl} Take 1 [facility] en-codeine 7-16 tablet by [facility] of 300-30 mg 00:00: mouth [place] tablet 00 every 6 Medical (six) Branch hours as needed for Pain (scale 4-6). Indication s: acute pain methocarbam 2022-0 Yes [id number] 500mg Take 1 [facility] oL 500 mg 7-16 tablet by [facility] o f tablet 00:00: mouth 4 [place] 00 (four) Medical times Branch daily as needed for Pain (scale 1-3). acetaminoph 2022-0 Yes [id number] 1{tbl} Take 1 [facility] en-codeine 7-16 tablet by [facility] of 300-30 mg 00:00: mouth [place] tablet 00 every 6 Medical (six) Branch hours as needed for Pain (scale 4-6). Indication s: acute pain methocarbam 2022-0 Yes [id number] 500mg Take 1 [facility] oL 500 mg 7-16 tablet by [facility] o f tablet 00:00: mouth 4 [place] 00 (four) Medical times Branch daily as needed for Pain (scale 1-3). acetaminoph 2022-0 Yes [id number] 1{tbl} Take 1 [facility] en-codeine 7-16 tablet by [facility] of 300-30 mg 00:00: mouth [place] tablet 00 every 6 Medical (six) Branch hours as needed for Pain (scale 4-6). Indication s: acute pain methocarbam 2022-0 Yes [id number] 500mg Take 1 [facility] oL 500 mg 7-16 tablet by [facility] o f tablet 00:00: mouth 4 [place] 00 (four) Medical times Branch daily as needed for Pain (scale 1-3). acetaminoph 2022-0 Yes [id number] 1{tbl} Take 1 [facility] en-codeine 7-16 tablet by [facility] of 300-30 mg 00:00: mouth [place] tablet 00 every 6 Medical (six) Branch hours as needed for Pain (scale 4-6). Indication s: acute pain methocarbam 2022-0 Yes [id number] 500mg Take 1 [facility] oL 500 mg 7-16 tablet by [facility] o f tablet 00:00: mouth 4 [place] 00 (four) Medical times Branch daily as needed for Pain (scale 1-3). acetaminoph 2022-0 Yes [id number] 1{tbl} Take 1 [facility] en-codeine 7-16 tablet by [facility] of 300-30 mg 00:00: mouth [place] tablet 00 every 6 Medical (six) Branch hours as needed for Pain (scale 4-6). Indication s: acute pain methocarbam 2022-0 Yes [id number] 500mg Take 1 [facility] oL 500 mg 7-16 tablet by [facility] o f tablet 00:00: mouth 4 [place] 00 (four) Medical times Branch daily as needed for Pain (scale 1-3). acetaminoph 2022-0 Yes 4647 1{tbl} Take 1 [facility] en-codeine 7-16 tablet by [facility] of 300-30 mg 00:00: mouth [place] tablet 00 every 6 Medical (six) Branch hours as needed for Pain (scale 4-6). Indication s: acute pain methocarbam 2022-0 Yes [id number] 500mg Take 1 [facility] oL 500 mg 7-16 tablet by [facility] o f tablet 00:00: mouth 4 [place] 00 (four) Medical times Branch daily as needed for Pain (scale 1-3). acetaminoph 2022-0 Yes [id number] 1{tbl} Take 1 [facility] en-codeine 7-16 tablet by [facility] of 300-30 mg 00:00: mouth [place] tablet 00 every 6 Medical (six) Branch hours as needed for Pain (scale 4-6). Indication s: acute pain methocarbam 2022-0 Yes [id number] 500mg Take 1 [facility] oL 500 mg 7-16 tablet by [facility] o f tablet 00:00: mouth 4 [place] 00 (four) Medical times Branch daily as needed for Pain (scale 1-3). acetaminoph 2022-0 Yes [id number] 1{tbl} Take 1 [facility] en-codeine 7-16 tablet by [facility] of 300-30 mg 00:00: mouth [place] tablet 00 every 6 Medical (six) Branch hours as needed for Pain (scale 4-6). Indication s: acute pain methocarbam 2022-0 Yes [id number] 500mg Take 1 [facility] oL 500 mg 7-16 tablet by [facility] o f tablet 00:00: mouth 4 [place] 00 (four) Medical times Branch daily as needed for Pain (scale 1-3). acetaminoph 2022-0 Yes [id number] 1{tbl} Take 1 [facility] en-codeine 7-16 tablet by [facility] of 300-30 mg 00:00: mouth [place] tablet 00 every 6 Medical (six) Branch hours as needed for Pain (scale 4-6). Indication s: acute pain methocarbam 2021-0 Yes [id number] 500mg Take 1 [facility] oL 500 mg 7-16 tablet by [facility] o f tablet 00:00: mouth 4 [place] 00 (four) Medical times Branch daily as needed for Pain (scale 1-3). acetaminoph 2021-0 Yes [id number] 1{tbl} Take 1 [facility] en-codeine 7-16 tablet by [facility] of 300-30 mg 00:00: mouth [place] tablet 00 every 6 Medical (six) Branch hours as needed for Pain (scale 4-6). Indication s: acute pain methocarbam 2021-0 Yes [id number] 500mg Take 1 [facility] oL 500 mg 7-16 tablet by [facility] o f tablet 00:00: mouth 4 [place] 00 (four) Medical times Branch daily as needed for Pain (scale 1-3). acetaminoph 2021-0 Yes [id number] 1{tbl} Take 1 [facility] en-codeine 7-16 tablet by [facility] of 300-30 mg 00:00: mouth [place] tablet 00 every 6 Medical (six) Branch hours as needed for Pain (scale 4-6). Indication s: acute pain methocarbam 2021-0 Yes [id number] 500mg Take 1 [facility] oL 500 mg 7-16 tablet by [facility] o f tablet 00:00: mouth 4 [place] 00 (four) Medical times Branch daily as needed for Pain (scale 1-3). acetaminoph 2021-0 Yes 4647 1{tbl} Take 1 [facility] en-codeine 7-16 tablet by [facility] of 300-30 mg 00:00: mouth [place] tablet 00 every 6 Medical (six) Branch hours as needed for Pain (scale 4-6). Indication s: acute pain acetaminoph 2-0 Yes 4647 1{tbl} Take 1 [facility] en-codeine 7-16 tablet by [facility] of 300-30 mg 00:00: mouth [place] tablet 00 every 6 Medical (six) Branch hours as needed for Pain (scale 4-6). Indication s: acute pain acetaminoph 2022-0 Yes 4647 1{tbl} Take 1 [facility] en-codeine 7-16 tablet by [facility] of 300-30 mg 00:00: mouth [place] tablet 00 every 6 Medical (six) Branch hours as needed for Pain (scale 4-6). Indication s: acute pain acetaminoph 2022-0 Yes 4647 1{tbl} Take 1 [facility] en-codeine 7-16 tablet by [facility] of 300-30 mg 00:00: mouth [place] tablet 00 every 6 Medical (six) Branch hours as needed for Pain (scale 4-6). Indication s: acute pain acetaminoph 2022-0 Yes 4647 1{tbl} Take 1 [facility] en-codeine 7-16 tablet by [facility] of 300-30 mg 00:00: mouth [place] tablet 00 every 6 Medical (six) Branch hours as needed for Pain (scale 4-6). Indication s: acute pain acetaminoph 2022-0 Yes 4647 1{tbl} Take 1 [facility] en-codeine 7-16 tablet by [facility] of 300-30 mg 00:00: mouth [place] tablet 00 every 6 Medical (six) Branch hours as needed for Pain (scale 4-6). Indication s: acute pain acetaminoph 2022-0 Yes 4647 1{tbl} Take 1 [facility] en-codeine 7-16 tablet by [facility] of 300-30 mg 00:00: mouth [place] tablet 00 every 6 Medical (six) Branch hours as needed for Pain (scale 4-6). Indication s: acute pain acetaminoph 2022-0 Yes 4647 1{tbl} Take 1 [facility] en-codeine 7-16 tablet by [facility] of 300-30 mg 00:00: mouth [place] tablet 00 every 6 Medical (six) Branch hours as needed for Pain (scale 4-6). Indication s: acute pain acetaminoph 2022-0 Yes 4647 1{tbl} Take 1 [facility] en-codeine 7-16 tablet by [facility] of 300-30 mg 00:00: mouth [place] tablet 00 every 6 Medical (six) Branch hours as needed for Pain (scale 4-6). Indication s: acute pain acetaminoph 2022-0 Yes 4647 1{tbl} Take 1 [facility] en-codeine 7-16 tablet by [facility] of 300-30 mg 00:00: mouth [place] tablet 00 every 6 Medical (six) Branch hours as needed for Pain (scale 4-6). Indication s: acute pain acetaminoph 0 Yes 4647 1{tbl} Take 1 [facility] en-codeine 7-16 tablet by [facility] of 300-30 mg 00:00: mouth [place] tablet 00 every 6 Medical (six) Branch hours as needed for Pain (scale 4-6). Indication s: acute pain methocarbam 2021- No [id number] 500mg Take 1 [facility] oL 500 mg 7-16 12-15 tablet by [facility] of tablet 00:00: 00:00 mouth 4 [place] 00 :00 (four) Medical times Branch daily as needed for Pain (scale 1-3). methocarbam 2021- No [id number] 500mg Take 1 [facility] oL 500 mg 7-16 12-15 tablet by [facility] of tablet 00:00: 00:00 mouth 4 [place] 00 :00 (four) Medical times Branch daily as needed for Pain (scale 1-3). lidocaine 5 Yes [id number] 1{patch Apply 1 [facility] % (700 6-15 } Patch to [facility] of mg/patch) 00:00: area(s) as [place] patch 00 needed Medical (pain). Branch Apply up to 3 patches to painful areas. 12hrs on 12hrs off lidocaine 5 2021-0 Yes [id number] 1{patch Apply 1 [facility] % (700 6-15 } Patch to [facility] of mg/patch) 00:00: area(s) as [place] patch 00 needed Medical (pain). Branch Apply up to 3 patches to painful areas. 12hrs on 12hrs off lidocaine 5 2021-0 Yes [id number] 1{patch Apply 1 [facility] % (700 6-15 } Patch to [facility] of mg/patch) 00:00: area(s) as [place] patch 00 needed Medical (pain). Branch Apply up to 3 patches to painful areas. 12hrs on 12hrs off lidocaine 5 2021-0 Yes [id number] 1{patch Apply 1 [facility] % (700 6-15 } Patch to [facility] of mg/patch) 00:00: area(s) as [place] patch 00 needed Medical (pain). Branch Apply up to 3 patches to painful areas. 12hrs on 12hrs off lidocaine 5 2022-0 Yes [id number] 1{patch Apply 1 [facility] % (700 6-15 } Patch to [facility] of mg/patch) 00:00: area(s) as [place] patch 00 needed Medical (pain). Branch Apply up to 3 patches to painful areas. 12hrs on 12hrs off lidocaine 5 2022-0 Yes [id number] 1{patch Apply 1 [facility] % (700 6-15 } Patch to [facility] of mg/patch) 00:00: area(s) as [place] patch 00 needed Medical (pain). Branch Apply up to 3 patches to painful areas. 12hrs on 12hrs off lidocaine 5 2022-0 Yes [id number] 1{patch Apply 1 [facility] % (700 6-15 } Patch to [facility] of mg/patch) 00:00: area(s) as [place] patch 00 needed Medical (pain). Branch Apply up to 3 patches to painful areas. 12hrs on 12hrs off lidocaine 5 2022-0 Yes [id number] 1{patch Apply 1 [facility] % (700 6-15 } Patch to [facility] of mg/patch) 00:00: area(s) as [place] patch 00 needed Medical (pain). Branch Apply up to 3 patches to painful areas. 12hrs on 12hrs off lidocaine 5 2022-0 Yes [id number] 1{patch Apply 1 [facility] % (700 6-15 } Patch to [facility] of mg/patch) 00:00: area(s) as [place] patch 00 needed Medical (pain). Branch Apply up to 3 patches to painful areas. 12hrs on 12hrs off lidocaine 5 2022-0 Yes [id number] 1{patch Apply 1 [facility] % (700 6-15 } Patch to [facility] of mg/patch) 00:00: area(s) as [place] patch 00 needed Medical (pain). Branch Apply up to 3 patches to painful areas. 12hrs on 12hrs off lidocaine 5 2022-0 Yes [id number] 1{patch Apply 1 [facility] % (700 6-15 } Patch to [facility] of mg/patch) 00:00: area(s) as [place] patch 00 needed Medical (pain). Branch Apply up to 3 patches to painful areas. 12hrs on 12hrs off lidocaine 5 2022-0 Yes [id number] 1{patch Apply 1 [facility] % (700 6-15 } Patch to [facility] of mg/patch) 00:00: area(s) as [place] patch 00 needed Medical (pain). Branch Apply up to 3 patches to painful areas. 12hrs on 12hrs off lidocaine 5 2022-0 Yes [id number] 1{patch Apply 1 [facility] % (700 6-15 } Patch to [facility] of mg/patch) 00:00: area(s) as [place] patch 00 needed Medical (pain). Branch Apply up to 3 patches to painful areas. 12hrs on 12hrs off lidocaine 5 2022-0 Yes [id number] 1{patch Apply 1 [facility] % (700 6-15 } Patch to [facility] of mg/patch) 00:00: area(s) as [place] patch 00 needed Medical (pain). Branch Apply up to 3 patches to painful areas. 12hrs on 12hrs off lidocaine 5 2022-0 Yes [id number] 1{patch Apply 1 [facility] % (700 6-15 } Patch to [facility] of mg/patch) 00:00: area(s) as [place] patch 00 needed Medical (pain). Branch Apply up to 3 patches to painful areas. 12hrs on 12hrs off lidocaine 5 2022-0 Yes [id number] 1{patch Apply 1 [facility] % (700 6-15 } Patch to [facility]y of mg/patch) 00:00: area(s) as [place] patch 00 needed Medical (pain). Branch Apply up to 3 patches to painful areas. 12hrs on 12hrs off lidocaine 5 2022-0 Yes [id number] 1{patch Apply 1 [facility] % (700 6-15 } Patch to [facility] of mg/patch) 00:00: area(s) as [place] patch 00 needed Medical (pain). Branch Apply up to 3 patches to painful areas. 12hrs on 12hrs off lidocaine 5 2022-0 Yes [id number] 1{patch Apply 1 [facility] % (700 6-15 } Patch to [facility] of mg/patch) 00:00: area(s) as [place] patch 00 needed Medical (pain). Branch Apply up to 3 patches to painful areas. 12hrs on 12hrs off lidocaine 5 2022-0 Yes [id number] 1{patch Apply 1 [facility] % (700 6-15 } Patch to [facility] of mg/patch) 00:00: area(s) as [place] patch 00 needed Medical (pain). Branch Apply up to 3 patches to painful areas. 12hrs on 12hrs off lidocaine 5 2022-0 Yes [id number] 1{patch Apply 1 [facility] % (700 6-15 } Patch to [facility] of mg/patch) 00:00: area(s) as [place] patch 00 needed Medical (pain). Branch Apply up to 3 patches to painful areas. 12hrs on 12hrs off lidocaine 5 2022-0 Yes [id number] 1{patch Apply 1 [facility] % (700 6-15 } Patch to [facility]y of mg/patch) 00:00: area(s) as [place] patch 00 needed Medical (pain). Branch Apply up to 3 patches to painful areas. 12hrs on 12hrs off lidocaine 5 2022-0 Yes [id number] 1{patch Apply 1 [facility] % (700 6-15 } Patch to [facility] of mg/patch) 00:00: area(s) as [place] patch 00 needed Medical (pain). Branch Apply up to 3 patches to painful areas. 12hrs on 12hrs off lidocaine 5 2022-0 Yes [id number] 1{patch Apply 1 [facility] % (700 6-15 } Patch to [facility]y of mg/patch) 00:00: area(s) as [place] patch 00 needed Medical (pain). Branch Apply up to 3 patches to painful areas. 12hrs on 12hrs off lidocaine 5 2022-0 Yes [id number] 1{patch Apply 1 [facility] % (700 6-15 } Patch to [facility] of mg/patch) 00:00: area(s) as [place] patch 00 needed Medical (pain). Branch Apply up to 3 patches to painful areas. 12hrs on 12hrs off lidocaine 5 2022-0 Yes [id number] 1{patch Apply 1 [facility] % (700 6-15 } Patch to [facility]y of mg/patch) 00:00: area(s) as [place] patch 00 needed Medical (pain). Branch Apply up to 3 patches to painful areas. 12hrs on 12hrs off lidocaine 5 2022-0 Yes [id number] 1{patch Apply 1 [facility] % (700 6-15 } Patch to [facility]y of mg/patch) 00:00: area(s) as [place] patch 00 needed Medical (pain). Branch Apply up to 3 patches to painful areas. 12hrs on 12hrs off lidocaine 5 2022-0 Yes [id number] 1{patch Apply 1 [facility] % (700 6-15 } Patch to [facility]y of mg/patch) 00:00: area(s) as [place] patch 00 needed Medical (pain). Branch Apply up to 3 patches to painful areas. 12hrs on 12hrs off lidocaine 5 2022-0 Yes [id number] 1{patch Apply 1 [facility] % (700 6-15 } Patch to [facility]y of mg/patch) 00:00: area(s) as [place] patch 00 needed Medical (pain). Branch Apply up to 3 patches to painful areas. 12hrs on 12hrs off lidocaine 5 2022-0 Yes [id number] 1{patch Apply 1 [facility] % (700 6-15 } Patch to [facility]y of mg/patch) 00:00: area(s) as [place] patch 00 needed Medical (pain). Branch Apply up to 3 patches to painful areas. 12hrs on 12hrs off lidocaine 5 202-0 2022- No [id number] 1{patch Apply 1 [facility] % (700 6-15 12-13 } Patch to ity of mg/patch) 00:00: 00:00 area(s) as [place] patch 00 :00 needed Medical (pain). Branch Apply up to 3 patches to painful areas. 12hrs on 12hrs off cephALEXin 2022-0 Yes [id number] 500mg Take 1 [facility] (KEFLEX) 6-09 capsule by ity o f 500 mg 00:00: mouth 3 [place] capsule 00 (three) Medical times Branch daily. cephALEXin 2022-0 Yes [id number] 500mg Take 1 [facility] (KEFLEX) 6-09 capsule by ity o f 500 mg 00:00: mouth 3 [place] capsule 00 (three) Medical times Branch daily. cephALEXin 2022-0 Yes [id number] 500mg Take 1 [facility] (KEFLEX) 6-09 capsule by ity o f 500 mg 00:00: mouth 3 [place] capsule 00 (three) Medical times Branch daily. cephALEXin 2022-0 Yes [id number] 500mg Take 1 [facility] (KEFLEX) 6-09 capsule by ity o f 500 mg 00:00: mouth 3 [place] capsule 00 (three) Medical times Branch daily. cephALEXin 2022-0 Yes [id number] 500mg Take 1 [facility] (KEFLEX) 6-09 capsule by ity o f 500 mg 00:00: mouth 3 [place] capsule 00 (three) Medical times Branch daily. cephALEXin 2022-0 Yes [id number] 500mg Take 1 [facility] (KEFLEX) 6-09 capsule by ity o f 500 mg 00:00: mouth 3 [place] capsule 00 (three) Medical times Branch daily. cephALEXin 2022-0 Yes [id number] 500mg Take 1 [facility] ([facility] 6-09 capsule by [facility] o f 500 mg 00:00: mouth 3 [place] capsule 00 (three) [facility] times [facility] daily. cephALEXin 2022-0 Yes [id number] 500mg Take 1 [facility] (KE[facility]) 6-09 capsule by [facility] o f 500 mg 00:00: mouth 3 [place] capsule 00 (three) [facility] times [facility] daily. cephALEXin 2022-0 Yes [id number] 500mg Take 1 [facility] (KEFLEX) 6-09 capsule by [facility] o f 500 mg 00:00: mouth 3 [place] capsule 00 (three) [facility] times [facility] daily. cephALEXin 2022-0 Yes [id number] 500mg Take 1 [facility] (KEFLEX) 6-09 capsule by [facility] o f 500 mg 00:00: mouth 3 [place] capsule 00 (three) Medical times [facility] daily. cephALEXin 2022-0 Yes [id number] 500mg Take 1 [facility] (KEFLEX) 6-09 capsule by [facility] o f 500 mg 00:00: mouth 3 [place] capsule 00 (three) Medical times [facility] daily. cephALEXin 2022-0 Yes [id number] 500mg Take 1 [facility] (KEFLEX) 6-09 capsule by [facility] o f 500 mg 00:00: mouth 3 [place] capsule 00 (three) [facility] times [facility] daily. cephALEXin 2022-0 Yes [id number] 500mg Take 1 [facility] (KEFLEX) 6-09 capsule by [facility] o f 500 mg 00:00: mouth 3 [place] capsule 00 (three) Medical times [facility] daily. cephALEXin 2022-0 Yes [id number] 500mg Take 1 [facility] (KEFLEX) 6-09 capsule by [facility] o f 500 mg 00:00: mouth 3 [place] capsule 00 (three) Medical times [facility] daily. cephALEXin 2022-0 Yes [id number] 500mg Take 1 [facility] (KEFLEX) 6-09 capsule by [facility] o f 500 mg 00:00: mouth 3 [place] capsule 00 (three) [facility] times [facility] daily. cephALEXin 2022-0 Yes [id number] 500mg Take 1 [facility] (KEFLEX) 6-09 capsule by [facility] o f 500 mg 00:00: mouth 3 [place] capsule 00 (three) [facility] times [facility] daily. cephALEXin 2022-0 Yes [id number] 500mg Take 1 [facility] (KEFLEX) 6-09 capsule by [facility] o f 500 mg 00:00: mouth 3 [place] capsule 00 (three) Medical times [facility] daily. cephALEXin 2022-0 Yes [id number] 500mg Take 1 [facility] (KEFLEX) 6-09 capsule by [facility] o f 500 mg 00:00: mouth 3 [place] capsule 00 (three) Medical times [facility] daily. cephALEXin 2022-0 Yes [id number] 500mg Take 1 [facility] (KEFLEX) 6-09 capsule by [facility] o f 500 mg 00:00: mouth 3 [place] capsule 00 (three) Medical times [facility] daily. cephALEXin 2022-0 Yes [id number] 500mg Take 1 [facility] (KEFLEX) 6-09 capsule by [facility] o f 500 mg 00:00: mouth 3 [place] capsule 00 (three) [facility] times [facility] daily. cephALEXin 2022-0 Yes [id number] 500mg Take 1 [facility] (KEFLEX) 6-09 capsule by [facility] o f 500 mg 00:00: mouth 3 [place] capsule 00 (three) [facility] times [facility] daily. cephALEXin 2022-0 Yes [id number] 500mg Take 1 [facility] (KEFLEX) 6-09 capsule by [facility] o f 500 mg 00:00: mouth 3 [place] capsule 00 (three) Medical times [facility] daily. cephALEXin 2022-0 Yes [id number] 500mg Take 1 [facility] (KEFLEX) 6-09 capsule by [facility] o f 500 mg 00:00: mouth 3 [place] capsule 00 (three) [facility] times [facility] daily. cephALEXin 2022-0 Yes [id number] 500mg Take 1 [facility] (KEFLEX) 6-09 capsule by [facility] o f 500 mg 00:00: mouth 3 [place] capsule 00 (three) Medical times [facility] daily. cephALEXin 2022-0 Yes [id number] 500mg Take 1 [facility] (KEFLEX) 6-09 capsule by [facility] o f 500 mg 00:00: mouth 3 [place] capsule 00 (three) [facility] times [facility] daily. cephALEXin 2022-0 Yes [id number] 500mg Take 1 [facility] (KEFLEX) 6-09 capsule by [facility] o f 500 mg 00:00: mouth 3 [place] capsule 00 (three) Medical times [facility] daily. cephALEXin 2022-0 Yes [id number] 500mg Take 1 [facility] (KEFLEX) 6-09 capsule by [facility] o f 500 mg 00:00: mouth 3 [place] capsule 00 (three) Medical times [facility] daily. cephALEXin 2022-0 Yes [id number] 500mg Take 1 [facility] (KEFLEX) 6-09 capsule by [facility] o f 500 mg 00:00: mouth 3 [place] capsule 00 (three) Medical times [facility] daily. cephALEXin 2022-0 Yes [id number] 500mg Take 1 [facility] (KEFLEX) 6-09 capsule by [facility] o f 500 mg 00:00: mouth 3 [place] capsule 00 (three) Medical times [facility] daily. cephALEXin 2022-0 Yes [id number] 500mg Take 1 [facility] (KEFLEX) 6-09 capsule by [facility] o f 500 mg 00:00: mouth 3 [place] capsule 00 (three) Medical times [facility] daily. cephALEXin 2022-0 Yes [id number] 500mg Take 1 [facility] (KEFLEX) 6-09 capsule by [facility] o f 500 mg 00:00: mouth 3 [place] capsule 00 (three) Medical times [facility] daily. cephALEXin 2022-0 Yes [id number] 500mg Take 1 [facility] (KEFLEX) 6-09 capsule by [facility] o f 500 mg 00:00: mouth 3 [place] capsule 00 (three) Medical times [facility] daily. cephALEXin 2022-0 Yes [id number] 500mg Take 1 [facility] (KEFLEX) 6-09 capsule by [facility] o f 500 mg 00:00: mouth 3 [place] capsule 00 (three) Medical times [facility] daily. cephALEXin 2022-0 Yes [id number] 500mg Take 1 [facility] (KEFLEX) 6-09 capsule by [facility] o f 500 mg 00:00: mouth 3 [place] capsule 00 (three) Medical times [facility] daily. cephALEXin 2022-0 Yes [id number] 500mg Take 1 [facility] (KEFLEX) 6-09 capsule by [facility] o f 500 mg 00:00: mouth 3 [place] capsule 00 (three) Medical times [facility] daily. cephALEXin 2022-0 Yes [id number] 500mg Take 1 [facility] (KEFLEX) 6-09 capsule by [facility] o f 500 mg 00:00: mouth 3 [place] capsule 00 (three) Medical times [facility] daily. cephALEXin 2022-0 Yes [id number] 500mg Take 1 [facility] (KEFLEX) 6-09 capsule by [facility] o f 500 mg 00:00: mouth 3 [place] capsule 00 (three) Medical times [facility] daily. cephALEXin 2022-0 Yes [id number] 500mg Take 1 [facility] (KEFLEX) 6-09 capsule by [facility] o f 500 mg 00:00: mouth 3 [place] capsule 00 (three) Medical times [facility] daily. cephALEXin 2022-0 Yes [id number] 500mg Take 1 [facility] (KEFLEX) 6-09 capsule by [facility] o f 500 mg 00:00: mouth 3 [place] capsule 00 (three) Medical times [facility] daily. cephALEXin 2-0 Yes [id number] 500mg Take 1 [facility] (KEFLEX) 6-09 capsule by [facility] o f 500 mg 00:00: mouth 3 [place] capsule 00 (three) Medical times [facility] daily. cephALEXin 2022-0 Yes [id number] 500mg Take 1 [facility] (KEFLEX) 6-09 capsule by [facility] o f 500 mg 00:00: mouth 3 [place] capsule 00 (three) Medical times [facility] daily. pregabalin 2021-0 Yes [id number] 1-2 cap po [facility] 75 mg 3-29 TID prn [facility]y of capsule 00:00: low back 00 pain [facility] methocarbam 2021-0 Yes [id number] 750mg Take 1 [facility] oL 750 mg 3-29 tablet by [facility] o f tablet 00:00: mouth 4 00 (four) Medical times [facility] daily as needed (muscle spasm, low back pain). For low back pain, muscle spasm. Alternate with cyclobenza manasa pregabalin 2021-0 Yes [id number] 1-2 cap po [facility] 75 mg 3-29 TID prn [facility] of capsule 00:00: low back [place] 00 pain [facility] methocarbam 2-0 Yes [id number] 750mg Take 1 [facility] oL 750 mg 3-29 tablet by [facility] o f tablet 00:00: mouth (four) Medical times [facility] daily as needed (muscle spasm, low back pain). For low back pain, muscle spasm. Alternate with cyclobenza manasa pregabalin 0 Yes [id number] 1-2 cap po [facility] 75 mg 3-29 TID prn [facility] of capsule 00:00: low back [place] pain [facility] methocarbam 0 Yes [id number] 750mg Take 1 [facility] oL 750 mg 3-29 tablet by [facility] o f tablet 00:00: mouth (four) Medical times [facility] daily as needed (muscle spasm, low back pain). For low back pain, muscle spasm. Alternate with cyclobenza manasa pregabalin 0 Yes [id number] 1-2 cap po [facility] 75 mg 3-29 TID prn [facility] of capsule 00:00: low back [place] pain [facility] methocarbam 0 Yes [id number] 750mg Take 1 [facility] oL 750 mg 3-29 tablet by [facility] o f tablet 00:00: mouth (four) Medical times [facility] daily as needed (muscle spasm, low back pain). For low back pain, muscle spasm. Alternate with cyclobenza manasa pregabalin 0 Yes [id number] 1-2 cap po [facility] 75 mg 3-29 TID prn [facility] of capsule 00:00: low back [place] pain [facility] methocarbam 2021-0 Yes [id number] 750mg Take 1 [facility] oL 750 mg 3-29 tablet by [facility] o f tablet 00:00: mouth (four) Medical times [facility] daily as needed (muscle spasm, low back pain). For low back pain, muscle spasm. Alternate with cyclobenza manasa pregabalin 2021-0 Yes [id number] 1-2 cap po [facility] 75 mg 3-29 TID prn [facility] of capsule 00:00: low back [place] 00 pain [facility] methocarbam 0 Yes [id number] 750mg Take 1 [facility] oL 750 mg 3-29 tablet by [facility] o f tablet 00:00: mouth (four) Medical times [facility] daily as needed (muscle spasm, low back pain). For low back pain, muscle spasm. Alternate with cyclobenza manasa pregabalin Yes [id number] 1-2 cap po [facility] 75 mg 3-29 TID prn [facility] of capsule 00:00: low back [place] pain [facility] methocarbam Yes [id number] 750mg Take 1 [facility] oL 750 mg 3-29 tablet by [facility] o f tablet 00:00: mouth 4 (four) Medical times [facility] daily as needed (muscle spasm, low back pain). For low back pain, muscle spasm. Alternate with cyclobenza manasa pregabalin Yes [id number] 1-2 cap po [facility] 75 mg 3-29 TID prn [facility] of capsule 00:00: low back [place] pain [facility] methocarbam Yes [id number] 750mg Take 1 [facility] oL 750 mg 3-29 tablet by [facility] o f tablet 00:00: mouth (four) Medical times [facility] daily as needed (muscle spasm, low back pain). For low back pain, muscle spasm. Alternate with cyclobenza manasa pregabalin Yes [id number] 1-2 cap po [facility] 75 mg 3-29 TID prn [facility] of capsule 00:00: low back [place] pain [facility] methocarbam Yes [id number] 750mg Take 1 [facility] oL 750 mg 3-29 tablet by [facility] o f tablet 00:00: mouth (four) Medical times [facility] daily as needed (muscle spasm, low back pain). For low back pain, muscle spasm. Alternate with cyclobenza manasa pregabalin Yes [id number] 1-2 cap po [facility] 75 mg 3-29 TID prn [facility] of capsule 00:00: low back [place] pain [facility] methocarbam Yes [id number] 750mg Take 1 [facility] oL 750 mg 3-29 tablet by [facility] o f tablet 00:00: mouth (four) Medical times [facility] daily as needed (muscle spasm, low back pain). For low back pain, muscle spasm. Alternate with cyclobenza manasa pregabalin Yes [id number] 1-2 cap po [facility] 75 mg 3-29 TID prn [facility] of capsule 00:00: low back [place] pain [facility] methocarbam Yes [id number] 750mg Take 1 [facility] oL 750 mg 3-29 tablet by [facility] o f tablet 00:00: mouth (four) Medical times [facility] daily as needed (muscle spasm, low back pain). For low back pain, muscle spasm. Alternate with cyclobenza manasa pregabalin Yes [id number] 1-2 cap po [facility] 75 mg 3-29 TID prn [facility] of capsule 00:00: low back pain [facility] methocarbam 0 Yes [id number] 750mg Take 1 [facility] oL 750 mg 3-29 tablet by [facility] o f tablet 00:00: mouth (four) Medical times [facility] daily as needed (muscle spasm, low back pain). For low back pain, muscle spasm. Alternate with cyclobenza manasa pregabalin Yes [id number] 1-2 cap po [facility] 75 mg 3-29 TID prn [facility] of capsule 00:00: low back [place] pain [facility] methocarbam 0 Yes [id number] 750mg Take 1 [facility] oL 750 mg 3-29 tablet by [facility] o f tablet 00:00: mouth (four) Medical times [facility] daily as needed (muscle spasm, low back pain). For low back pain, muscle spasm. Alternate with cyclobenza manasa pregabalin Yes [id number] 1-2 cap po [facility] 75 mg 3-29 TID prn [facility] of capsule 00:00: low back pain [facility] methocarbam 0 Yes [id number] 750mg Take 1 [facility] oL 750 mg 3-29 tablet by [facility] o f tablet 00:00: mouth (four) Medical times [facility] daily as needed (muscle spasm, low back pain). For low back pain, muscle spasm. Alternate with cyclobenza manasa pregabalin 0 Yes [id number] 1-2 cap po [facility] 75 mg 3-29 TID prn [facility] of capsule 00:00: low back pain [facility] methocarbam 0 Yes [id number] 750mg Take 1 [facility] oL 750 mg 3-29 tablet by [facility] o f tablet 00:00: mouth (four) Medical times [facility] daily as needed (muscle spasm, low back pain). For low back pain, muscle spasm. Alternate with cyclobenza manasa pregabalin Yes [id number] 1-2 cap po [facility] 75 mg 3-29 TID prn [facility] of capsule 00:00: low back pain [facility] methocarbam 0 Yes [id number] 750mg Take 1 [facility] oL 750 mg 3-29 tablet by [facility] o f tablet 00:00: mouth 4 (four) Medical times [facility] daily as needed (muscle spasm, low back pain). For low back pain, muscle spasm. Alternate with cyclobenza manasa pregabalin Yes [id number] 1-2 cap po [facility] 75 mg 3-29 TID prn [facility] of capsule 00:00: low back [place] pain [facility] methocarbam 0 Yes [id number] 750mg Take 1 [facility] oL 750 mg 3-29 tablet by [facility] o f tablet 00:00: mouth (four) Medical times [facility] daily as needed (muscle spasm, low back pain). For low back pain, muscle spasm. Alternate with cyclobenza manasa pregabalin Yes [id number] 1-2 cap po [facility] 75 mg 3-29 TID prn [facility] of capsule 00:00: low back [place] pain [facility] methocarbam 0 Yes [id number] 750mg Take 1 [facility] oL 750 mg 3-29 tablet by [facility] o f tablet 00:00: mouth 4 (four) Medical times [facility] daily as needed (muscle spasm, low back pain). For low back pain, muscle spasm. Alternate with cyclobenza manasa pregabalin Yes [id number] 1-2 cap po [facility] 75 mg 3-29 TID prn [facility] of capsule 00:00: low back [place] pain [facility] methocarbam 0 Yes [id number] 750mg Take 1 [facility] oL 750 mg 3-29 tablet by [facility] o f tablet 00:00: mouth 4 (four) Medical times [facility] daily as needed (muscle spasm, low back pain). For low back pain, muscle spasm. Alternate with cyclobenza manasa pregabalin 0 Yes [id number] 1-2 cap po [facility] 75 mg 3-29 TID prn ity of capsule 00:00: low back pain [facility] methocarbam 0 Yes [id number] 750mg Take 1 [facility] oL 750 mg 3-29 tablet by [facility] o f tablet 00:00: mouth 4 (four) Medical times [facility] daily as needed (muscle spasm, low back pain). For low back pain, muscle spasm. Alternate with cyclobenza manasa pregabalin Yes [id number] 1-2 cap po [facility] 75 mg 3-29 TID prn [facility] of capsule 00:00: low back pain [facility] methocarbam 0 Yes [id number] 750mg Take 1 [facility] oL 750 mg 3-29 tablet by [facility] o f tablet 00:00: mouth (four) Medical times [facility] daily as needed (muscle spasm, low back pain). For low back pain, muscle spasm. Alternate with cyclobenza manasa pregabalin Yes [id number] 1-2 cap po [facility] 75 mg 3-29 TID prn [facility] of capsule 00:00: low back [place] pain [facility] methocarbam 0 Yes [id number] 750mg Take 1 [facility] oL 750 mg 3-29 tablet by [facility] o f tablet 00:00: mouth (four) Medical times [facility] daily as needed (muscle spasm, low back pain). For low back pain, muscle spasm. Alternate with cyclobenza manasa pregabalin Yes [id number] 1-2 cap po [facility] 75 mg 3-29 TID prn [facility] of capsule 00:00: low back [place] pain [facility] methocarbam 0 Yes [id number] 750mg Take 1 [facility] oL 750 mg 3-29 tablet by [facility] o f tablet 00:00: mouth (four) Medical times [facility] daily as needed (muscle spasm, low back pain). For low back pain, muscle spasm. Alternate with cyclobenza manasa pregabalin 0 Yes [id number] 1-2 cap po [facility] 75 mg 3-29 TID prn ity of capsule 00:00: low back [place] pain [facility] methocarbam 0 Yes [id number] 750mg Take 1 [facility] oL 750 mg 3-29 tablet by it[facility] o f tablet 00:00: mouth 4 (four) Medical times [facility] daily as needed (muscle spasm, low back pain). For low back pain, muscle spasm. Alternate with cyclobenza manasa pregabalin 2021-0 Yes [id number] 1-2 cap po [facility] 75 mg 3-29 TID prn ity of capsule 00:00: low back pain [facility] methocarbam 2021-0 Yes [id number] 750mg Take 1 [facility] oL 750 mg 3-29 tablet by it[facility] o f tablet 00:00: mouth (four) Medical times Branch daily as needed (muscle spasm, low back pain). For low back pain, muscle spasm. Alternate with cyclobenza manasa pregabalin 2021-0 Yes [id number] 1-2 cap po [facility] 75 mg 3-29 TID prn ity of capsule 00:00: low back [place] pain [facility] methocarbam 2021-0 Yes [id number] 750mg Take 1 [facility] oL 750 mg 3-29 tablet by ity o f tablet 00:00: mouth ([facility]) Medical times Branch daily as needed (muscle spasm, low back pain). For low back pain, muscle spasm. Alternate with cyclobenza manasa pregabalin 2021-0 Yes [id number] 1-2 cap po [facility] 75 mg 3-29 TID prn ity of capsule 00:00: low back [place] pain [facility] methocarbam 2021-0 Yes [id number] 750mg Take 1 [facility] oL 750 mg 3-29 tablet by ity o f tablet 00:00: mouth (four) Medical times Branch daily as needed (muscle spasm, low back pain). For low back pain, muscle spasm. Alternate with cyclobenza manasa pregabalin 2021-0 Yes [id number] 1-2 cap po [facility] 75 mg 3-29 TID prn ity of capsule 00:00: low back [place] pain [facility] methocarbam 2021-0 Yes [id number] 750mg Take 1 [facility] oL 750 mg 3-29 tablet by it[facility] o f tablet 00:00: mouth (four) Medical times [facility] daily as needed (muscle spasm, low back pain). For low back pain, muscle spasm. Alternate with cyclobenza manasa pregabalin 2021-0 Yes [id number] 1-2 cap po [facility] 75 mg 3-29 TID prn ity of capsule 00:00: low back [place] 00 pain [facility] methocarbam Yes [id number] 750mg Take 1 [facility] oL 750 mg 3-29 tablet by ity o f tablet 00:00: mouth 4 00 (four) Medical times Branch daily as needed (muscle spasm, low back pain). For low back pain, muscle spasm. Alternate with cyclobenza manasa pregabalin Yes [id number] 1-2 cap po [facility] 75 mg 3-29 TID prn ity of capsule 00:00: low back [place] 00 pain [facility] methocarbam Yes [id number] 750mg Take 1 [facility] oL 750 mg 3-29 tablet by ity o f tablet 00:00: mouth 4 (four) Medical times Branch daily as needed (muscle spasm, low back pain). For low back pain, muscle spasm. Alternate with cyclobenza manasa pregabalin 2021- No [id number] 1-2 cap po [facility] 75 mg 3-29 12-15 TID prn ity of capsule 00:00: 00:00 low back [place] 00 :00 pain Medical [facility] methocarbam 2021- No [id number] 750mg Take 1 [facility] oL 750 mg 3-29 12-15 tablet by [facility] of tablet 00:00: 00:00 mouth 4 [place] 00 :00 (four) Medical times Branch daily as needed (muscle spasm, low back pain). For low back pain, muscle spasm. Alternate with cyclobenza manasa pregabalin 2021- No [id number] 1-2 cap po [facility] 75 mg 3-29 12-15 TID prn ity of capsule 00:00: 00:00 low back [place] 00 :00 pain [facility] methocarbam 2021- No [id number] 750mg Take 1 [facility] oL 750 mg 3-29 12-15 tablet by it[facility] of tablet 00:00: 00:00 mouth 4 00 :00 (four) Medical times Branch daily as needed (muscle spasm, low back pain). For low back pain, muscle spasm. Alternate with cyclobenza manasa ondansetron 2020-06 Yes [id number] 4mg Take 1 [facility] 4 mg 1-03 tablet by ity of disintegrat 00:00: mouth [place] ing tablet 00 every 4 Medica l (four) Branch hours as needed for Nausea and Vomiting (N/V). ondansetron 2020-06 Yes [id number] 4mg Take 1 [facility] 4 mg 1-03 tablet by ity of disintegrat 00:00: mouth [place] ing tablet 00 every 4 Medica l (four) Branch hours as needed for Nausea and Vomiting (N/V). ondansetron 2020-06 Yes [id number] 4mg Take 1 [facility] 4 mg 1-03 tablet by ity of disintegrat 00:00: mouth [place] ing tablet 00 every 4 Med[facility] l (four) Branch hours as needed for Nausea and Vomiting (N/V). ondansetron 2020-06 Yes [id number] 4mg Take 1 [facility] 4 mg 1-03 tablet by ity of disintegrat 00:00: mouth [place] ing tablet 00 every 4 Medica l (four) Branch hours as needed for Nausea and Vomiting (N/V). ondansetron 2020-06 Yes [id number] 4mg Take 1 [facility] 4 mg 1-03 tablet by ity of disintegrat 00:00: mouth [place] ing tablet 00 every 4 Med[facility] l (four) Branch hours as needed for Nausea and Vomiting (N/V). ondansetron 2020-06 Yes [id number] 4mg Take 1 [facility] 4 mg 1-03 tablet by ity of disintegrat 00:00: mouth [place] ing tablet 00 every 4 Med[facility] l (four) Branch hours as needed for Nausea and Vomiting (N/V). ondansetron 2020-06 Yes [id number] 4mg Take 1 [facility] 4 mg 1-03 tablet by ity of disintegrat 00:00: mouth [place] ing tablet 00 every 4 Medica l (four) Branch hours as needed for Nausea and Vomiting (N/V). ondansetron 2020-06 Yes [id number] 4mg Take 1 [facility] 4 mg 1-03 tablet by ity of disintegrat 00:00: mouth [place] ing tablet 00 every 4 Medica l (four) Branch hours as needed for Nausea and Vomiting (N/V). ondansetron 2020-06 Yes [id number] 4mg Take 1 [facility] 4 mg 1-03 tablet by ity of disintegrat 00:00: mouth [place] ing tablet 00 every 4 Medica l (four) Branch hours as needed for Nausea and Vomiting (N/V). ondansetron 2020-06 Yes [id number] 4mg Take 1 [facility] 4 mg 1-03 tablet by it[facility] of disintegrat 00:00: mouth [place] ing tablet 00 every 4 Medica l (four) Branch hours as needed for Nausea and Vomiting (N/V). ondansetron 2020-06 Yes [id number] 4mg Take 1 [facility] 4 mg 1-03 tablet by [facility]y of disintegrat 00:00: mouth [place] ing tablet 00 every 4 Medica l (four) Branch hours as needed for Nausea and Vomiting (N/V). ondansetron 2020-06 Yes [id number] 4mg Take 1 [facility] 4 mg 1-03 tablet by ity of disintegrat 00:00: mouth [place] ing tablet 00 every 4 Medica l (four) Branch hours as needed for Nausea and Vomiting (N/V). ondansetron 2020-06 Yes [id number] 4mg Take 1 [facility] 4 mg 1-03 tablet by ity of disintegrat 00:00: mouth [place] ing tablet 00 every 4 Medica l (four) Branch hours as needed for Nausea and Vomiting (N/V). ondansetron 2020-06 Yes [id number] 4mg Take 1 [facility] 4 mg 1-03 tablet by ity of disintegrat 00:00: mouth [place] ing tablet 00 every 4 Medica l (four) Branch hours as needed for Nausea and Vomiting (N/V). ondansetron 2020-06 Yes [id number] 4mg Take 1 [facility] 4 mg 1-03 tablet by ity of disintegrat 00:00: mouth [place] ing tablet 00 every 4 Medica l (four) Branch hours as needed for Nausea and Vomiting (N/V). ondansetron 2020-06 Yes [id number] 4mg Take 1 [facility] 4 mg 1-03 tablet by ity of disintegrat 00:00: mouth [place] ing tablet 00 every 4 Medica l (four) Branch hours as needed for Nausea and Vomiting (N/V). ondansetron 2020-06 Yes [id number] 4mg Take 1 [facility] 4 mg 1-03 tablet by ity of disintegrat 00:00: mouth [place] ing tablet 00 every 4 Medica l (four) Branch hours as needed for Nausea and Vomiting (N/V). ondansetron 2020-06 Yes [id number] 4mg Take 1 [facility] 4 mg 1-03 tablet by ity of disintegrat 00:00: mouth [place] ing tablet 00 every 4 Medica l (four) Branch hours as needed for Nausea and Vomiting (N/V). ondansetron 2020-06 Yes [id number] 4mg Take 1 [facility] 4 mg 1-03 tablet by [facility]y of disintegrat 00:00: mouth [place] ing tablet 00 every 4 Med[facility] l (four) Branch hours as needed for Nausea and Vomiting (N/V). ondansetron 2020-06 Yes [id number] 4mg Take 1 [facility] 4 mg 1-03 tablet by [facility]y of disintegrat 00:00: mouth [place] ing tablet 00 every 4 Med[facility] l (four) Branch hours as needed for Nausea and Vomiting (N/V). ondansetron 2020-06 Yes [id number] 4mg Take 1 [facility] 4 mg 1-03 tablet by [facility] of disintegrat 00:00: mouth [place] ing tablet 00 every 4 Medica l (four) Branch hours as needed for Nausea and Vomiting (N/V). ondansetron 2020-06 Yes [id number] 4mg Take 1 [facility] 4 mg 1-03 tablet by ity of disintegrat 00:00: mouth [place] ing tablet 00 every 4 Medica l (four) Branch hours as needed for Nausea and Vomiting (N/V). ondansetron 2020-06 Yes [id number] 4mg Take 1 [facility] 4 mg 1-03 tablet by ity of disintegrat 00:00: mouth [place] ing tablet 00 every 4 Medica l (four) Branch hours as needed for Nausea and Vomiting (N/V). ondansetron 2020-06 Yes [id number] 4mg Take 1 [facility] 4 mg 1-03 tablet by ity of disintegrat 00:00: mouth [place] ing tablet 00 every 4 Medica l (four) Branch hours as needed for Nausea and Vomiting (N/V). ondansetron 2020-06 Yes [id number] 4mg Take 1 [facility] 4 mg 1-03 tablet by ity of disintegrat 00:00: mouth [place] ing tablet 00 every 4 Medica l (four) Branch hours as needed for Nausea and Vomiting (N/V). ondansetron 2020-06 Yes [id number] 4mg Take 1 [facility] 4 mg 1-03 tablet by ity of disintegrat 00:00: mouth [place] ing tablet 00 every 4 Medica l (four) Branch hours as needed for Nausea and Vomiting (N/V). ondansetron 2020-06 Yes [id number] 4mg Take 1 [facility] 4 mg 1-03 tablet by ity of disintegrat 00:00: mouth [place] ing tablet 00 every 4 Medica l (four) Branch hours as needed for Nausea and Vomiting (N/V). ondansetron 2020-06 Yes [id number] 4mg Take 1 [facility] 4 mg 1-03 tablet by ity of disintegrat 00:00: mouth [place] ing tablet 00 every 4 Medica l (four) Branch hours as needed for Nausea and Vomiting (N/V). ondansetron 2020-06 Yes [id number] 4mg Take 1 [facility] 4 mg 1-03 tablet by ity of disintegrat 00:00: mouth [place] ing tablet 00 every 4 Medica l (four) Branch hours as needed for Nausea and Vomiting (N/V). ondansetron 2020-06 Yes [id number] 4mg Take 1 [facility] 4 mg 1-03 tablet by ity of disintegrat 00:00: mouth [place] ing tablet 00 every 4 Medica l (four) Branch hours as needed for Nausea and Vomiting (N/V). ondansetron 2020-06 Yes [id number] 4mg Take 1 [facility] 4 mg 1-03 tablet by ity of disintegrat 00:00: mouth [place] ing tablet 00 every 4 Medica l (four) Branch hours as needed for Nausea and Vomiting (N/V). ondansetron 2020-06 Yes [id number] 4mg Take 1 [facility] 4 mg 1-03 tablet by ity of disintegrat 00:00: mouth [place] ing tablet 00 every 4 Medica l (four) Branch hours as needed for Nausea and Vomiting (N/V). ondansetron 2020-06 Yes [id number] 4mg Take 1 [facility] 4 mg 1-03 tablet by [facility]y of disintegrat 00:00: mouth [place] ing tablet 00 every 4 Medica l (four) Branch hours as needed for Nausea and Vomiting (N/V). ondansetron 2020-06 Yes [id number] 4mg Take 1 [facility] 4 mg 1-03 tablet by ity of disintegrat 00:00: mouth [place] ing tablet 00 every 4 Medica l (four) Branch hours as needed for Nausea and Vomiting (N/V). ondansetron 2020-06 Yes [id number] 4mg Take 1 [facility] 4 mg 1-03 tablet by ity of disintegrat 00:00: mouth [place] ing tablet 00 every 4 Medica l (four) Branch hours as needed for Nausea and Vomiting (N/V). ondansetron 2020-06 Yes [id number] 4mg Take 1 [facility] 4 mg 1-03 tablet by ity of disintegrat 00:00: mouth [place] ing tablet 00 every 4 Medica l (four) Branch hours as needed for Nausea and Vomiting (N/V). ondansetron 2020-06 Yes [id number] 4mg Take 1 [facility] 4 mg 1-03 tablet by ity of disintegrat 00:00: mouth [place] ing tablet 00 every 4 Medica l (four) Branch hours as needed for Nausea and Vomiting (N/V). ondansetron 2020-06 Yes [id number] 4mg Take 1 [facility] 4 mg 1-03 tablet by ity of disintegrat 00:00: mouth [place] ing tablet 00 every 4 Medica l (four) Branch hours as needed for Nausea and Vomiting (N/V). ondansetron 2020-06 Yes [id number] 4mg Take 1 [facility] 4 mg 1-03 tablet by ity of disintegrat 00:00: mouth [place] ing tablet 00 every 4 Medica l (four) Branch hours as needed for Nausea and Vomiting (N/V). ondansetron 2020-06 Yes [id number] 4mg Take 1 [facility] 4 mg 1-03 tablet by ity of disintegrat 00:00: mouth [place] ing tablet 00 every 4 Med[facility] l (four) Branch hours as needed for Nausea and Vomiting (N/V). ondansetron 2020-06 Yes [id number] 4mg Take 1 [facility] 4 mg 1-03 tablet by ity of disintegrat 00:00: mouth [place] ing tablet 00 every 4 Medica l (four) Branch hours as needed for Nausea and Vomiting (N/V). magnesium Yes [id number] 400mg Take 1 [facility] oxide 400 9-20 tablet by ity o f mg (241.3 00:00: mouth [place] mg 00 daily. Medical magnesium) Branch tablet magnesium Yes [id number] 400mg Take 1 [facility] oxide 400 9-20 tablet by ity o f mg (241.3 00:00: mouth [place] mg 00 daily. Medical magnesium) Branch tablet magnesium 2020-0 Yes [id number] 400mg Take 1 [facility] oxide 400 9-20 tablet by ity o f mg (241.3 00:00: mouth [place] mg 00 daily. Medical magnesium) Branch tablet magnesium 2020-0 Yes [id number] 400mg Take 1 [facility] oxide 400 9-20 tablet by ity o f mg (241.3 00:00: mouth [place] mg 00 daily. Medical magnesium) Branch tablet magnesium 2020-0 Yes [id number] 400mg Take 1 [facility] oxide 400 9-20 tablet by ity o f mg (241.3 00:00: mouth [place] mg 00 daily. Medical magnesium) Branch tablet magnesium 2020-0 Yes [id number] 400mg Take 1 [facility] oxide 400 9-20 tablet by ity o f mg (241.3 00:00: mouth [place] mg 00 daily. Medical magnesium) Branch tablet magnesium 2020-0 Yes [id number] 400mg Take 1 [facility] oxide 400 9-20 tablet by ity o f mg (241.3 00:00: mouth [place] mg 00 daily. Medical magnesium) Branch tablet magnesium 2020-0 Yes [id number] 400mg Take 1 [facility] oxide 400 9-20 tablet by ity o f mg (241.3 00:00: mouth [place] mg 00 daily. Medical magnesium) Branch tablet magnesium 2020-0 Yes [id number] 400mg Take 1 [facility] oxide 400 9-20 tablet by ity o f mg (241.3 00:00: mouth [place] mg 00 daily. Medical magnesium) Branch tablet magnesium 2020-0 Yes [id number] 400mg Take 1 [facility] oxide 400 9-20 tablet by ity o f mg (241.3 00:00: mouth [place] mg 00 daily. Medical magnesium) Branch tablet magnesium 2020-0 Yes [id number] 400mg Take 1 [facility] oxide 400 9-20 tablet by ity o f mg (241.3 00:00: mouth [place] mg 00 daily. Medical magnesium) Branch tablet magnesium 2020-0 Yes [id number] 400mg Take 1 [facility] oxide 400 9-20 tablet by ity o f mg (241.3 00:00: mouth [place] mg 00 daily. Medical magnesium) Branch tablet magnesium 2020-0 Yes [id number] 400mg Take 1 [facility] oxide 400 9-20 tablet by ity o f mg (241.3 00:00: mouth [place] mg 00 daily. Medical magnesium) Branch tablet magnesium 2020-0 Yes [id number] 400mg Take 1 [facility] oxide 400 9-20 tablet by ity o f mg (241.3 00:00: mouth [place] mg 00 daily. Medical magnesium) Branch tablet magnesium 2020-0 Yes [id number] 400mg Take 1 [facility] oxide 400 9-20 tablet by ity o f mg (241.3 00:00: mouth [place] mg 00 daily. Medical magnesium) Branch tablet magnesium 2020-0 Yes [id number] 400mg Take 1 [facility] oxide 400 9-20 tablet by ity o f mg (241.3 00:00: mouth [place] mg 00 daily. Medical magnesium) Branch tablet magnesium 2020-0 Yes [id number] 400mg Take 1 [facility] oxide 400 9-20 tablet by ity o f mg (241.3 00:00: mouth [place] mg 00 daily. Medical magnesium) Branch tablet magnesium 2020-0 Yes [id number] 400mg Take 1 [facility] oxide 400 9-20 tablet by ity o f mg (241.3 00:00: mouth [place] mg 00 daily. Medical magnesium) Branch tablet magnesium 2020-0 Yes [id number] 400mg Take 1 [facility] oxide 400 9-20 tablet by ity o f mg (241.3 00:00: mouth [place] mg 00 daily. Medical magnesium) Branch tablet magnesium 2020-0 Yes [id number] 400mg Take 1 [facility] oxide 400 9-20 tablet by ity o f mg (241.3 00:00: mouth [place] mg 00 daily. Medical magnesium) Branch tablet magnesium 2020-0 Yes [id number] 400mg Take 1 [facility] oxide 400 9-20 tablet by ity o f mg (241.3 00:00: mouth [place] mg 00 daily. Medical magnesium) Branch tablet magnesium 2020-0 Yes [id number] 400mg Take 1 [facility] oxide 400 9-20 tablet by ity o f mg (241.3 00:00: mouth [place] mg 00 daily. Medical magnesium) Branch tablet magnesium 2020-0 Yes [id number] 400mg Take 1 [facility] oxide 400 9-20 tablet by ity o f mg (241.3 00:00: mouth [place] mg 00 daily. Medical magnesium) Branch tablet magnesium 2020-0 Yes [id number] 400mg Take 1 [facility] oxide 400 9-20 tablet by ity o f mg (241.3 00:00: mouth [place] mg 00 daily. Medical magnesium) Branch tablet magnesium 2020-0 Yes [id number] 400mg Take 1 [facility] oxide 400 9-20 tablet by ity o f mg (241.3 00:00: mouth [place] mg 00 daily. Medical magnesium) Branch tablet magnesium 2020-0 Yes [id number] 400mg Take 1 [facility] oxide 400 9-20 tablet by ity o f mg (241.3 00:00: mouth [place] mg 00 daily. Medical magnesium) Branch tablet magnesium 2020-0 Yes [id number] 400mg Take 1 [facility] oxide 400 9-20 tablet by ity o f mg (241.3 00:00: mouth [place] mg 00 daily. Medical magnesium) Branch tablet magnesium 2020-0 Yes [id number] 400mg Take 1 [facility] oxide 400 9-20 tablet by ity o f mg (241.3 00:00: mouth [place] mg 00 daily. Medical magnesium) Branch tablet magnesium 2020-0 Yes [id number] 400mg Take 1 [facility] oxide 400 9-20 tablet by ity o f mg (241.3 00:00: mouth [place] mg 00 daily. Medical magnesium) Branch tablet magnesium 2020-0 Yes [id number] 400mg Take 1 [facility] oxide 400 9-20 tablet by ity o f mg (241.3 00:00: mouth [place] mg 00 daily. Medical magnesium) Branch tablet magnesium 2020-0 Yes [id number] 400mg Take 1 [facility] oxide 400 9-20 tablet by ity o f mg (241.3 00:00: mouth [place] mg 00 daily. Medical magnesium) Branch tablet magnesium 2020-0 Yes [id number] 400mg Take 1 [facility] oxide 400 9-20 tablet by ity o f mg (241.3 00:00: mouth [place] mg 00 daily. Medical magnesium) Branch tablet magnesium 2020-0 Yes [id number] 400mg Take 1 [facility] oxide 400 9-20 tablet by ity o f mg (241.3 00:00: mouth [place] mg 00 daily. Medical magnesium) Branch tablet magnesium 2020-0 Yes [id number] 400mg Take 1 [facility] oxide 400 9-20 tablet by ity o f mg (241.3 00:00: mouth [place] mg 00 daily. Medical magnesium) Branch tablet magnesium 2020-0 Yes [id number] 400mg Take 1 [facility] oxide 400 9-20 tablet by ity o f mg (241.3 00:00: mouth [place] mg 00 daily. Medical magnesium) Branch tablet magnesium 2020-0 Yes [id number] 400mg Take 1 [facility] oxide 400 9-20 tablet by ity o f mg (241.3 00:00: mouth [place] mg 00 daily. Medical magnesium) Branch tablet magnesium 2020-0 Yes [id number] 400mg Take 1 [facility] oxide 400 9-20 tablet by ity o f mg (241.3 00:00: mouth [place] mg 00 daily. Medical magnesium) Branch tablet magnesium 2020-0 Yes [id number] 400mg Take 1 [facility] oxide 400 9-20 tablet by ity o f mg (241.3 00:00: mouth [place] mg 00 daily. Medical magnesium) Branch tablet magnesium Yes [id number] 400mg Take 1 [facility] oxide 400 9-20 tablet by ity o f mg (241.3 00:00: mouth [place] mg 00 daily. Medical magnesium) Branch tablet magnesium Yes [id number] 400mg Take 1 [facility] oxide 400 9-20 tablet by ity o f mg (241.3 00:00: mouth [place] mg 00 daily. Medical magnesium) Branch tablet magnesium 0 Yes [id number] 400mg Take 1 [facility] oxide 400 9-20 tablet by ity o f mg (241.3 00:00: mouth [place] mg 00 daily. Medical magnesium) Branch tablet erythromyci Yes [id number] .5[in_u Place 0.5 [facility] n 5 mg/gram 4-02 s] Inches in ity of (0.5 %) 00:00: both eyes [place] ophthalmic 00 4 (four) Medic al ointment times Branch daily. erythromyci Yes [id number] .5[in_u Place 0.5 [facility] n 5 mg/gram 4-02 s] Inches in ity of (0.5 %) 00:00: both eyes [place] ophthalmic 00 4 (four) Medic al ointment times Branch daily. erythromyci Yes [id number] .5[in_u Place 0.5 [facility] n 5 mg/gram 4-02 s] Inches in ity of (0.5 %) 00:00: both eyes [place] ophthalmic 00 4 (four) Medic al ointment times Branch daily. erythromyci 2020- Yes [id number] .5[in_u Place 0.5 [facility] n 5 mg/gram 4-02 s] Inches in ity of (0.5 %) 00:00: both eyes [place] ophthalmic 00 4 (four) Medic al ointment times Branch daily. erythromyci 2020- Yes [id number] .5[in_u Place 0.5 [facility] n 5 mg/gram 4-02 s] Inches in ity of (0.5 %) 00:00: both eyes [place] ophthalmic 00 4 (four) Medic al ointment times Branch daily. erythromyci Yes [id number] .5[in_u Place 0.5 [facility] n 5 mg/gram 4-02 s] Inches in ity of (0.5 %) 00:00: both eyes [place] ophthalmic 00 4 (four) Medic al ointment times Branch daily. erythromyci Yes [id number] .5[in_u Place 0.5 [facility] n 5 mg/gram 4-02 s] Inches in ity of (0.5 %) 00:00: both eyes [place] ophthalmic 00 4 (four) Medic al ointment times Branch daily. erythromyci Yes [id number] .5[in_u Place 0.5 [facility] n 5 mg/gram 4-02 s] Inches in ity of (0.5 %) 00:00: both eyes [place] ophthalmic 00 4 (four) Medic al ointment times Branch daily. erythromyci Yes [id number] .5[in_u Place 0.5 [facility] n 5 mg/gram 4-02 s] Inches in ity of (0.5 %) 00:00: both eyes [place] ophthalmic 00 4 (four) Medic al ointment times Branch daily. erythromyci Yes [id number] .5[in_u Place 0.5 [facility] n 5 mg/gram 4-02 s] Inches in ity of (0.5 %) 00:00: both eyes [place] ophthalmic 00 4 (four) Medic al ointment times Branch daily. erythromyci Yes [id number] .5[in_u Place 0.5 [facility] n 5 mg/gram 4-02 s] Inches in ity of (0.5 %) 00:00: both eyes [place] ophthalmic 00 4 (four) Medic al ointment times Branch daily. erythromyci Yes [id number] .5[in_u Place 0.5 [facility] n 5 mg/gram 4-02 s] Inches in ity of (0.5 %) 00:00: both eyes [place] ophthalmic 00 4 (four) Medic al ointment times Branch daily. erythromyci Yes [id number] .5[in_u Place 0.5 [facility] n 5 mg/gram 4-02 s] Inches in ity of (0.5 %) 00:00: both eyes [place] ophthalmic 00 4 (four) Medic al ointment times Branch daily. erythromyci Yes [id number] .5[in_u Place 0.5 [facility] n 5 mg/gram 4-02 s] Inches in ity of (0.5 %) 00:00: both eyes [place] ophthalmic 00 4 (four) Medic al ointment times Branch daily. erythromyci Yes [id number] .5[in_u Place 0.5 [facility] n 5 mg/gram 4-02 s] Inches in ity of (0.5 %) 00:00: both eyes [place] ophthalmic 00 4 (four) Medic al ointment times Branch daily. erythromyci Yes [id number] .5[in_u Place 0.5 [facility] n 5 mg/gram 4-02 s] Inches in ity of (0.5 %) 00:00: both eyes [place] ophthalmic 00 4 (four) Medic al ointment times Branch daily. erythromyci Yes [id number] .5[in_u Place 0.5 [facility] n 5 mg/gram 4-02 s] Inches in ity of (0.5 %) 00:00: both eyes [place] ophthalmic 00 4 (four) Medic al ointment times Branch daily. erythromyci Yes [id number] .5[in_u Place 0.5 [facility] n 5 mg/gram 4-02 s] Inches in ity of (0.5 %) 00:00: both eyes [place] ophthalmic 00 4 (four) Medic al ointment times Branch daily. erythromyci 2020- Yes [id number] .5[in_u Place 0.5 [facility] n 5 mg/gram 4-02 s] Inches in ity of (0.5 %) 00:00: both eyes [place] ophthalmic 00 4 (four) Medic al ointment times Branch daily. erythromyci Yes [id number] .5[in_u Place 0.5 [facility] n 5 mg/gram 4-02 s] Inches in ity of (0.5 %) 00:00: both eyes [place] ophthalmic 00 4 (four) Medic al ointment times Branch daily. erythromyci Yes [id number] .5[in_u Place 0.5 [facility] n 5 mg/gram 4-02 s] Inches in ity of (0.5 %) 00:00: both eyes [place] ophthalmic 00 4 (four) Medic al ointment times Branch daily. erythromyci Yes [id number] .5[in_u Place 0.5 [facility] n 5 mg/gram 4-02 s] Inches in ity of (0.5 %) 00:00: both eyes [place] ophthalmic 00 4 (four) Medic al ointment times Branch daily. erythromyci Yes [id number] .5[in_u Place 0.5 [facility] n 5 mg/gram 4-02 s] Inches in ity of (0.5 %) 00:00: both eyes [place] ophthalmic 00 4 (four) Medic al ointment times Branch daily. erythromyci Yes [id number] .5[in_u Place 0.5 [facility] n 5 mg/gram 4-02 s] Inches in ity of (0.5 %) 00:00: both eyes [place] ophthalmic 00 4 (four) Medic al ointment times Branch daily. erythromyci Yes [id number] .5[in_u Place 0.5 [facility] n 5 mg/gram 4-02 s] Inches in ity of (0.5 %) 00:00: both eyes [place] ophthalmic 00 4 (four) Medic al ointment times Branch daily. erythromyci Yes [id number] .5[in_u Place 0.5 [facility] n 5 mg/gram 4-02 s] Inches in ity of (0.5 %) 00:00: both eyes [place] ophthalmic 00 4 (four) Medic al ointment times Branch daily. erythromyci 2020- Yes [id number] .5[in_u Place 0.5 [facility] n 5 mg/gram 4-02 s] Inches in ity of (0.5 %) 00:00: both eyes [place] ophthalmic 00 4 (four) Medic al ointment times Branch daily. erythromyci 2020- Yes [id number] .5[in_u Place 0.5 [facility] n 5 mg/gram 4-02 s] Inches in ity of (0.5 %) 00:00: both eyes [place] ophthalmic 00 4 (four) Medic al ointment times Branch daily. erythromyci Yes [id number] .5[in_u Place 0.5 [facility] n 5 mg/gram 4-02 s] Inches in ity of (0.5 %) 00:00: both eyes [place] ophthalmic 00 4 (four) Medic al ointment times Branch daily. erythromyci Yes [id number] .5[in_u Place 0.5 [facility] n 5 mg/gram 4-02 s] Inches in ity of (0.5 %) 00:00: both eyes [place] ophthalmic 00 4 (four) Medic al ointment times Branch daily. erythromyci Yes [id number] .5[in_u Place 0.5 [facility] n 5 mg/gram 4-02 s] Inches in ity of (0.5 %) 00:00: both eyes [place] ophthalmic 00 4 (four) Medic al ointment times Branch daily. erythromyci 2020- Yes [id number] .5[in_u Place 0.5 [facility] n 5 mg/gram 4-02 s] Inches in ity of (0.5 %) 00:00: both eyes [place] ophthalmic 00 4 (four) Medic al ointment times Branch daily. erythromyci Yes [id number] .5[in_u Place 0.5 [facility] n 5 mg/gram 4-02 s] Inches in ity of (0.5 %) 00:00: both eyes [place] ophthalmic 00 4 (four) Medic al ointment times Branch daily. erythromyci 2020-0 Yes [id number] .5[in_u Place 0.5 [facility] n 5 mg/gram 4-02 s] Inches in ity of (0.5 %) 00:00: both eyes [place] ophthalmic 00 4 (four) Medic al ointment times Branch daily. erythromyci 2020- Yes [id number] .5[in_u Place 0.5 [facility] n 5 mg/gram 4-02 s] Inches in ity of (0.5 %) 00:00: both eyes [place] ophthalmic 00 4 (four) Medic al ointment times Branch daily. erythromyci 2020- Yes [id number] .5[in_u Place 0.5 [facility] n 5 mg/gram 4-02 s] Inches in ity of (0.5 %) 00:00: both eyes [place] ophthalmic 00 4 (four) Medic al ointment times Branch daily. erythromyci Yes [id number] .5[in_u Place 0.5 [facility] n 5 mg/gram 4-02 s] Inches in ity of (0.5 %) 00:00: both eyes [place] ophthalmic 00 4 (four) Medic al ointment times Branch daily. erythromyci Yes [id number] .5[in_u Place 0.5 [facility] n 5 mg/gram 4-02 s] Inches in ity of (0.5 %) 00:00: both eyes [place] ophthalmic 00 4 (four) Medic al ointment times Branch daily. erythromyci 2020- Yes [id number] .5[in_u Place 0.5 [facility] n 5 mg/gram 4-02 s] Inches in ity of (0.5 %) 00:00: both eyes [place] ophthalmic 00 4 (four) Medic al ointment times Branch daily. erythromyci Yes [id number] .5[in_u Place 0.5 [facility] n 5 mg/gram 4-02 s] Inches in ity of (0.5 %) 00:00: both eyes [place] ophthalmic 00 4 (four) Medic al ointment times [place] daily. erythromyci Yes [id number] .5[in_u Place 0.5 [facility] n 5 mg/gram 4-02 s] Inches in ity of (0.5 %) 00:00: both eyes [place] ophthalmic 00 4 (four) Medic al ointment times [place] daily. budesonide- Yes [id number] 2{puff} Inhale 2 [facility] formoteroL 3-19 Puffs 2 ity of 160-4.5 00:00: (two) [place] mcg/actuati 00 times Medical on inhaler daily. Branch budesonide- Yes [id number] 2{puff} Inhale 2 [facility] formoteroL 3-19 Puffs 2 ity of 160-4.5 00:00: (two) [place] mcg/actuati 00 times Medical on inhaler daily. [place] budesonide- Yes [id number] 2{puff} Inhale 2 [facility] formoteroL 3-19 Puffs 2 ity of 160-4.5 00:00: (two) [place] mcg/actuati 00 times Medical on inhaler daily. [place] budesonide- Yes [id number] 2{puff} Inhale 2 [facility] formoteroL 3-19 Puffs 2 ity of 160-4.5 00:00: (two) [place] mcg/actuati 00 times Medical on inhaler daily. [place] budesonide- Yes [id number] 2{puff} Inhale 2 [facility] formoteroL 3-19 Puffs 2 ity of 160-4.5 00:00: (two) [place] mcg/actuati 00 times Medical on inhaler daily. [place] budesonide- Yes [id number] 2{puff} Inhale 2 [facility] formoteroL 3-19 Puffs 2 ity of 160-4.5 00:00: (two) [place] mcg/actuati 00 times Medical on inhaler daily. [place] budesonide- Yes [id number] 2{puff} Inhale 2 [facility] formoteroL 3-19 Puffs 2 ity of 160-4.5 00:00: (two) [place] mcg/actuati 00 times Medical on inhaler daily. [place] budesonide- Yes [id number] 2{puff} Inhale 2 [facility] formoteroL 3-19 Puffs 2 ity of 160-4.5 00:00: (two) [place] mcg/actuati 00 times Medical on inhaler daily. [place] budesonide- Yes [id number] 2{puff} Inhale 2 [facility] formoteroL 3-19 Puffs 2 ity of 160-4.5 00:00: (two) [place] mcg/actuati 00 times Medical on inhaler daily. Branch budesonide Yes [id number] 2{puff} Inhale 2 [facility] formoteroL 3-19 Puffs 2 ity of 160-4.5 00:00: (two) [place] mcg/actuati 00 times Medical on inhaler daily. [place] budesonide- Yes [id number] 2{puff} Inhale 2 [facility] formoteroL 3-19 Puffs 2 ity of 160-4.5 00:00: (two) [place] mcg/actuati 00 times Medical on inhaler daily. [place] budesonide- Yes [id number] 2{puff} Inhale 2 [facility] formoteroL 3-19 Puffs 2 ity of 160-4.5 00:00: (two) [place] mcg/actuati 00 times Medical on inhaler daily. [place] budesonide Yes [id number] 2{puff} Inhale 2 [facility] formoteroL 3-19 Puffs 2 ity of 160-4.5 00:00: (two) [place] mcg/actuati 00 times Medical on inhaler daily. [place] budesonide Yes [id number] 2{puff} Inhale 2 [facility] formoteroL 3-19 Puffs 2 ity of 160-4.5 00:00: (two) [place] mcg/actuati 00 times Medical on inhaler daily. Branch budesonide- Yes [id number] 2{puff} Inhale 2 [facility] formoteroL 3-19 Puffs 2 ity of 160-4.5 00:00: (two) [place] mcg/actuati 00 times Medical on inhaler daily. Branch budesonide- Yes [id number] 2{puff} Inhale 2 [facility] formoteroL 3-19 Puffs 2 ity of 160-4.5 00:00: (two) [place] mcg/actuati 00 times Medical on inhaler daily. Branch budesonide- Yes [id number] 2{puff} Inhale 2 [facility] formoteroL 3-19 Puffs 2 ity of 160-4.5 00:00: (two) [place] mcg/actuati 00 times Medical on inhaler daily. Branch budesonide- Yes [id number] 2{puff} Inhale 2 [facility] formoteroL 3-19 Puffs 2 ity of 160-4.5 00:00: (two) [place] mcg/actuati 00 times Medical on inhaler daily. Branch budesonide- Yes [id number] 2{puff} Inhale 2 [facility] formoteroL 3-19 Puffs 2 ity of 160-4.5 00:00: (two) [place] mcg/actuati 00 times Medical on inhaler daily. [place] budesonide- Yes [id number] 2{puff} Inhale 2 [facility] formoteroL 3-19 Puffs 2 ity of 160-4.5 00:00: (two) [place] mcg/actuati 00 times Medical on inhaler daily. Branch budesonide- Yes [id number] 2{puff} Inhale 2 [facility] formoteroL 3-19 Puffs 2 ity of 160-4.5 00:00: (two) [place] mcg/actuati 00 times Medical on inhaler daily. Branch budesonide- Yes [id number] 2{puff} Inhale 2 [facility] formoteroL 3-19 Puffs 2 ity of 160-4.5 00:00: (two) [place] mcg/actuati 00 times Medical on inhaler daily. Branch budesonide- Yes [id number] 2{puff} Inhale 2 [facility] formoteroL 3-19 Puffs 2 ity of 160-4.5 00:00: (two) [place] mcg/actuati 00 times Medical on inhaler daily. Branch budesonide- 2020- Yes [id number] 2{puff} Inhale 2 [facility] formoteroL 3-19 Puffs 2 ity of 160-4.5 00:00: (two) [place] mcg/actuati 00 times Medical on inhaler daily. Branch budesonide- Yes [id number] 2{puff} Inhale 2 [facility] formoteroL 3-19 Puffs 2 ity of 160-4.5 00:00: (two) [place] mcg/actuati 00 times Medical on inhaler daily. Branch budesonide- Yes [id number] 2{puff} Inhale 2 [facility] formoteroL 3-19 Puffs 2 ity of 160-4.5 00:00: (two) [place] mcg/actuati 00 times Medical on inhaler daily. Branch budesonide- Yes [id number] 2{puff} Inhale 2 [facility] formoteroL 3-19 Puffs 2 ity of 160-4.5 00:00: (two) [place] mcg/actuati 00 times Medical on inhaler daily. Branch budesonide- Yes [id number] 2{puff} Inhale 2 [facility] formoteroL 3-19 Puffs 2 ity of 160-4.5 00:00: (two) [place] mcg/actuati 00 times Medical on inhaler daily. Branch budesonide- Yes [id number] 2{puff} Inhale 2 [facility] formoteroL 3-19 Puffs 2 ity of 160-4.5 00:00: (two) [place] mcg/actuati 00 times Medical on inhaler daily. Branch budesonide- Yes [id number] 2{puff} Inhale 2 [facility] formoteroL 3-19 Puffs 2 ity of 160-4.5 00:00: (two) [place] mcg/actuati 00 times Medical on inhaler daily. Branch budesonide- Yes [id number] 2{puff} Inhale 2 [facility] formoteroL 3-19 Puffs 2 ity of 160-4.5 00:00: (two) [place] mcg/actuati 00 times Medical on inhaler daily. Branch budesonide- Yes [id number] 2{puff} Inhale 2 [facility] formoteroL 3-19 Puffs 2 ity of 160-4.5 00:00: (two) [place] mcg/actuati 00 times Medical on inhaler daily. Branch budesonide- Yes [id number] 2{puff} Inhale 2 [facility] formoteroL 3-19 Puffs 2 ity of 160-4.5 00:00: (two) [place] mcg/actuati 00 times Medical on inhaler daily. [place] budesonide- Yes [id number] 2{puff} Inhale 2 [facility] formoteroL 3-19 Puffs 2 ity of 160-4.5 00:00: (two) [place] mcg/actuati 00 times Medical on inhaler daily. Branch budesonide Yes [id number] 2{puff} Inhale 2 [facility] formoteroL 3-19 Puffs 2 ity of 160-4.5 00:00: (two) [place] mcg/actuati 00 times Medical on inhaler daily. [place] budesonide- Yes [id number] 2{puff} Inhale 2 [facility] formoteroL 3-19 Puffs 2 ity of 160-4.5 00:00: (two) [place] mcg/actuati 00 times Medical on inhaler daily. [place] budesonide- Yes [id number] 2{puff} Inhale 2 [facility] formoteroL 3-19 Puffs 2 ity of 160-4.5 00:00: (two) [place] mcg/actuati 00 times Medical on inhaler daily. [place] budesonide Yes [id number] 2{puff} Inhale 2 [facility] formoteroL 3-19 Puffs 2 ity of 160-4.5 00:00: (two) [place] mcg/actuati 00 times Medical on inhaler daily. [place] budesonide Yes [id number] 2{puff} Inhale 2 [facility] formoteroL 3-19 Puffs 2 ity of 160-4.5 00:00: (two) [place] mcg/actuati 00 times Medical on inhaler daily. Branch budesonide- Yes [id number] 2{puff} Inhale 2 [facility] formoteroL 3-19 Puffs 2 ity of 160-4.5 00:00: (two) [place] mcg/actuati 00 times Medical on inhaler daily. Branch budesonide- Yes [id number] 2{puff} Inhale 2 [facility] formoteroL 3-19 Puffs 2 ity of 160-4.5 00:00: (two) [place] mcg/actuati 00 times Medical on inhaler daily. Branch vitamin C Yes [id number] 1000mg Take 1 [facility] with lizz 3-04 tablet by ity o f hips 1,000 00:00: mouth [place] mg tablet 00 daily. Medical Branch vitamin C Yes [id number] 1000mg Take 1 [facility] with lizz 3-04 tablet by ity o f hips 1,000 00:00: mouth [place] mg tablet 00 daily. Medical Branch vitamin C Yes [id number] 1000mg Take 1 [facility] with lizz 3-04 tablet by ity o f hips 1,000 00:00: mouth [place] mg tablet 00 daily. Medical Branch vitamin C Yes [id number] 1000mg Take 1 [facility] with lizz 3-04 tablet by ity o f hips 1,000 00:00: mouth [place] mg tablet 00 daily. Medical Branch vitamin C Yes [id number] 1000mg Take 1 [facility] with lizz 3-04 tablet by ity o f hips 1,000 00:00: mouth [place] mg tablet 00 daily. Medical Branch vitamin C Yes [id number] 1000mg Take 1 [facility] with lizz 3-04 tablet by ity o f hips 1,000 00:00: mouth [place] mg tablet 00 daily. Medical Branch vitamin C Yes [id number] 1000mg Take 1 [facility] with lizz 3-04 tablet by ity o f hips 1,000 00:00: mouth [place] mg tablet 00 daily. Medical Branch vitamin C Yes [id number] 1000mg Take 1 [facility] with lizz 3-04 tablet by ity o f hips 1,000 00:00: mouth [place] mg tablet 00 daily. Medical Branch vitamin C Yes [id number] 1000mg Take 1 [facility] with lizz 3-04 tablet by ity o f hips 1,000 00:00: mouth [place] mg tablet 00 daily. [facility] Branch vitamin C Yes [id number] 1000mg Take 1 [facility] with lizz 3-04 tablet by ity o f hips 1,000 00:00: mouth [place] mg tablet 00 daily. [facility] [facility] vitamin C Yes [id number] 1000mg Take 1 [facility] with lizz 3-04 tablet by ity o f hips 1,000 00:00: mouth [place] mg tablet 00 daily. [facility] vitamin C Yes [id number] 1000mg Take 1 [facility] with lizz 3-04 tablet by ity o f hips 1,000 00:00: mouth [place] mg tablet 00 daily. [facility] vitamin C Yes [id number] 1000mg Take 1 [facility] with lizz 3-04 tablet by ity o f hips 1,000 00:00: mouth [place] mg tablet 00 daily. [facility] vitamin C Yes [id number] 1000mg Take 1 [facility] with lizz 3-04 tablet by ity o f hips 1,000 00:00: mouth [place] mg tablet 00 daily. [facility] vitamin C Yes [id number] 1000mg Take 1 [facility] with lizz 3-04 tablet by ity o f hips 1,000 00:00: mouth [place] mg tablet 00 daily. [facility] vitamin C Yes [id number] 1000mg Take 1 [facility] with lizz 3-04 tablet by ity o f hips 1,000 00:00: mouth [place] mg tablet 00 daily. [facility] vitamin C Yes [id number] 1000mg Take 1 [facility] with lizz 3-04 tablet by ity o f hips 1,000 00:00: mouth [place] mg tablet 00 daily. [facility] vitamin C Yes [id number] 1000mg Take 1 [facility] with lizz 3-04 tablet by ity o f hips 1,000 00:00: mouth [place] mg tablet 00 daily. [facility] vitamin C Yes [id number] 1000mg Take 1 [facility] with lizz 3-04 tablet by ity o f hips 1,000 00:00: mouth [place] mg tablet 00 daily. [facility] vitamin C Yes [id number] 1000mg Take 1 [facility] with lizz 3-04 tablet by ity o f hips 1,000 00:00: mouth [place] mg tablet 00 daily. [facility] vitamin C Yes [id number] 1000mg Take 1 [facility] with lizz 3-04 tablet by ity o f hips 1,000 00:00: mouth [place] mg tablet 00 daily. [facility] vitamin C Yes [id number] 1000mg Take 1 [facility] with lizz 3-04 tablet by ity o f hips 1,000 00:00: mouth [place] mg tablet 00 daily. [facility] vitamin C Yes [id number] 1000mg Take 1 [facility] with lizz 3-04 tablet by ity o f hips 1,000 00:00: mouth [place] mg tablet 00 daily. [facility] vitamin C Yes [id number] 1000mg Take 1 [facility] with lizz 3-04 tablet by ity o f hips 1,000 00:00: mouth [place] mg tablet 00 daily. [facility] vitamin C Yes [id number] 1000mg Take 1 [facility] with lizz 3-04 tablet by ity o f hips 1,000 00:00: mouth [place] mg tablet 00 daily. [facility] vitamin C Yes [id number] 1000mg Take 1 [facility] with lizz 3-04 tablet by ity o f hips 1,000 00:00: mouth [place] mg tablet 00 daily. [facility] vitamin C Yes [id number] 1000mg Take 1 [facility] with lizz 3-04 tablet by ity o f hips 1,000 00:00: mouth [place] mg tablet 00 daily. [facility] vitamin C Yes [id number] 1000mg Take 1 [facility] with lizz 3-04 tablet by ity o f hips 1,000 00:00: mouth [place] mg tablet 00 daily. [facility] vitamin C Yes [id number] 1000mg Take 1 [facility] with lizz 3-04 tablet by ity o f hips 1,000 00:00: mouth [place] mg tablet 00 daily. [facility] vitamin C Yes [id number] 1000mg Take 1 [facility] with lizz 3-04 tablet by ity o f hips 1,000 00:00: mouth [place] mg tablet 00 daily. [facility] vitamin C Yes [id number] 1000mg Take 1 [facility] with lizz 3-04 tablet by ity o f hips 1,000 00:00: mouth [place] mg tablet 00 daily. [facility] vitamin C Yes [id number] 1000mg Take 1 [facility] with lizz 3-04 tablet by ity [facility] f hips 1,000 00:00: mouth [place] mg tablet 00 daily. [facility] vitamin C Yes [id number] 1000mg Take 1 [facility] with lizz 3-04 tablet by [facility] f hips 1,000 00:00: mouth [place] mg tablet 00 daily. [facility] vitamin C Yes [id number] 1000mg Take 1 [facility] with lizz 3-04 tablet by ity [facility] f hips 1,000 00:00: mouth [place] mg tablet 00 daily. [facility] vitamin C Yes [id number] 1000mg Take 1 [facility] with lizz 3-04 tablet by ity o f hips 1,000 00:00: mouth [place] mg tablet 00 daily. [facility] vitamin C Yes [id number] 1000mg Take 1 [facility] with lizz 3-04 tablet by ity o f hips 1,000 00:00: mouth [place] mg tablet 00 daily. [facility] vitamin C Yes [id number] 1000mg Take 1 [facility] with lizz 3-04 tablet by ity o f hips 1,000 00:00: mouth [place] mg tablet 00 daily. [facility] vitamin C Yes [id number] 1000mg Take 1 [facility] with lizz 3-04 tablet by ity o f hips 1,000 00:00: mouth [place] mg tablet 00 daily. [facility] vitamin C Yes [id number] 1000mg Take 1 [facility] with lizz 3-04 tablet by ity o f hips 1,000 00:00: mouth [place] mg tablet 00 daily. [facility] vitamin C Yes [id number] 1000mg Take 1 [facility] with lizz 3-04 tablet by ity o f hips 1,000 00:00: mouth [place] mg tablet 00 daily. [facility] vitamin C Yes [id number] 1000mg Take 1 [facility] with lizz 3-04 tablet by ity o f hips 1,000 00:00: mouth [place] mg tablet 00 daily. [facility] Branch Oxycodone No Notes: Memori a 4-17 (Same [...] Limited # of times Ondansetron No Notes: Jsoe G rene 4-17 (Same as: l 15:24: Zofran) MEDICATION WASTE [...] D Vitamin D Yes PHILL Take 1 [facility] (Ergocalcif (Ergocalcif 1-04 [facility] N[facility]. capsule Physici katrin) 47639 katrin) 36165 00:00: two times ans UNIT Oral UNIT Oral 00 per week Capsule Capsule atorvastati No 40 mg = 1 M emoria n 40 mg 1-03 tab, PO, l oral tablet 18:37: Bedtime, # Jimmy 00 30 tab, 0 Refill(s), Pharmacy: [id number] Aspirin 81 Yes 81 mg = 1 Me moria MG Chewable 1-03 tab, PO, l Tablet 18:37: Daily, # Jimmy 00 30 tab, 0 Refill(s), Pharmacy: [id number] Metformin Yes 500 mg, Memor ia hydrochlori 1-03 PO, BID, # l de 500 MG 18:37: 60 tab, 0 Her espino Oral Tablet 00 Refill(s), [Glucophage Pharmacy: ] [id number] clopidogrel No 75 mg = 1 M emoria 75 mg oral 1-03 tab, PO, l tablet 18:37: Daily, # [place] 00 30 tab, 0 Refill(s), Pharmacy: [id number] Sodium No 25 mL, Memoria Chloride 06-15 Route: IV, l 0.9% IV 13:56: Start date: 06/15/18 7:56:00 INTELLIGENCE OFFICER, Duration: 30 day, Stop date: 07/15/18 7:55:00 INTELLIGENCE OFFICER, PRN Line Flush BD Normal No Notes: Memori a Saline 06-15 (Same as: l Flush 13:56: BD Posiflush) Lovenox No Notes: Memoria 06-14 (Same as: l 21:00: Lovenox) venlafaxine No Notes: Jose G rene 06-14 (Same As: l 15:42: Effexor) Plavix No Notes: Memoria - (Same As: l 15:41: Plavix) Aspirin No 81 mg, Memoria 06-14 Route: PO, l 15:36: Drug form: ECTAB, Daily, Dosing Weight 165.3, kg, Priority: NOW, Start date: 06/14/18 9:36:00 INTELLIGENCE OFFICER, Duration: 30 day, Stop date: 07/14/18 9:00:00 INTELLIGENCE OFFICER pantoprazol No Notes: For Memoria e 06-13 IV push l 22:30: reconstitu te with 10 ml 0.9% sodium chloride and push over 2 minutes. (Same as: Protonix) Fentanyl No Notes: Memoria - (Same as: l 18:00: Sublimaze) Preservati ve free. chlorhexidi No Notes: Jose G rene ne 06-13 (Same As: l gluconate 15:00: Peridex) Herm mio 1.2 MG/ML 00 Mouthwash Famotidine No Notes: Memor ia 06-13 (Same as: l 15:00: Pepcid) Can be dilute in 5-10cc NS IVP: Slow IV push over at least 2 minutes. Saline No Notes: Memoria Flush 0.9% 06-13 (Same as: l 15:00: BD [place] 00 Posiflush) Aspirin 81 No 81 mg = [...] Nausea & Vomiting, Start date: 06/13/18 6:17:00 INTELLIGENCE OFFICER, Duration: 30 day, Stop date: 07/13/18 6:16:00 INTELLIGENCE OFFICER ocular No Notes: Memoria lubricant 06-13 (Same as: l 12:00: Refresh [place] 00 Plus) Enoxaparin No 40 mg, Memor ia 06-13 Route: l 11:00: SUB-Q, Drug form: INJ, [id number], Dosing Weight 150.091, kg, Start date: 06/13/18 5:00:00 INTELLIGENCE OFFICER, Duration: 30 day, Stop date: 07/12/18 5:00:00 INTELLIGENCE OFFICER chlorhexidi 2019-0 No Notes: Jose G rene ne 06-13 (Same As: l gluconate 10:34: Peridex) Herm mio 1.2 MG/ML 00 Mouthwash Insulin No 60 units) Jose G rene regular 06-13 WASTE: F/P l 10:30: - Black; E - Municipal Trash Bin Stable for 28 days at room temperatur e Expires in days from ____Date Dextrose No 12.5 gm, Memor ia 50% Syringe 06-13 25 mL, l 10:30: Route: IVP, Drug Form: INJ, Dosing Weight 150.091, kg, PRN, PRN Blood Glucose Results, Start date: 06/13/18 4:30:00 INTELLIGENCE OFFICER, Duration: 30 day, Stop date: 07/13/18 4:29:00 INTELLIGENCE OFFICER Glucagon No 1 mg, Memoria 06-13 Route: IM, l 10:30: Drug form: PDR/INJ, PRN, Dosing Weight 150.091, kg, PRN Blood Glucose Results, Start date: 06/13/18 4:30:00 INTELLIGENCE OFFICER, Duration: 30 day, Stop date: 07/13/18 4:29:00 INTELLIGENCE OFFICER Lactated No 1,000 mL, Jose G rene Ringers IV 06-13 Rate: 125 l 1,000 mL 10:29: ml/hr, Infuse over: 8 hr, Route: IV, Dosing Weight 150.091 kg, Total Volume: 1,000, Start date: 06/13/18 4:29:00 INTELLIGENCE OFFICER, Duration: 30 day, Stop date: 07/13/18 4:28:00 INTELLIGENCE OFFICER, 2.63, m2 Saline No Notes: Memoria Flush 0.9% 06-13 (Same as: l 10:29: BD Posiflush) Vitamin D Vitamin D Yes PHILL Take 1 [facility] (Ergocalcif (Ergocalcif 9-11 [facility] N[facility]P. capsule Physici katrin) 97382 katrin) 03144 00:00: two times ans UNIT Oral UNIT Oral 00 per week Capsule Capsule bifidobacte Yes QD Take [facility] (ALIGN) 4 58 Center mg Cap methocarbam 2018-0 Yes 750mg Take [address] [facility] 6-[facility] by [facility] (ROBAXIN) 11:59: mouth 4 Medic al 750 MG 58 (four) Center tablet times daily as needed . venlafaxine 2018-0 Yes 75mg Q.5D Take [address] [facility] (EFFEXOR) 6-29 by mouth 2 [facility] 75 MG 11:59: (two) Medical tablet 58 times Center daily. pantoprazol 2018-0 Yes 40mg QD Take [address] [facility] 6-29 by [facility] (PROTONIX) 11:59: daily. Medic al 40 MG 58 Center tablet magnesium 2018-0 Yes 400mg Q.5D Take [address] oxide 6-29 mg by [facility] (MAG-OX) 11:59: mouth 2 Medica l 400 mg 58 (two) Center tablet times daily. bifidobacte 2018-0 Yes QD Take by [facility] 6[facility] 11:59: daily. Medical (ALIGN) 4 58 Center mg Cap methocarbam 2018-0 Yes 750mg Take [address] [facility] 6-29 mg by [facility] (ROBAXIN) 11:59: mouth 4 Medic al 750 MG 58 (four) Center tablet times daily as needed . venlafaxine 2018-0 Yes 75mg Q.5D Take [address] [facility] (EFFEXOR) 6-29 by mouth 2 [facility] 75 MG 11:59: (two) Medical tablet 58 times Center daily. pantoprazol 2018-0 Yes 40mg QD Take [address] [facility] e 6-29 by [facility] (PROTONIX) 11:59: daily. Medic al 40 MG 58 Center tablet magnesium 2018-0 Yes 400mg Q.5D Take [address] oxide 6-29 mg by [facility] (MAG-OX) 11:59: mouth 2 Medica l 400 mg 58 (two) Center tablet times daily. bifidobacte 2018-0 Yes QD Take by [facility] 6-[facility] 11:59: daily. Medical (ALIGN) 4 58 Center mg Cap methocarbam 2018-0 Yes 750mg Take [address] ol 6-29 mg by [facility] (ROBAXIN) 11:59: mouth 4 Medic al 750 MG 58 (four) Center tablet times daily as needed . venlafaxine 2018-0 Yes 75mg Q.5D Take [address] (EFFEXOR) 6-29 by mouth 2 [facility] 75 MG 11:59: (two) Medical tablet 58 times Center daily. pantoprazol 2018-0 Yes 40mg QD Take [address] [facility] e 6-29 by mouth [facility] (PROTONIX) 11:59: daily. Medic al 40 MG 58 Center tablet magnesium 2018-0 Yes 400mg Q.5D Take [address] oxide 6-29 mg by [facility] (MAG-OX) 11:59: mouth 2 Medica l 400 mg 58 (two) Center tablet times daily. metFORMIN metFORMIN Yes [facility] HCl - 1000 HCl - 1000 Phy sici MG Oral MG Oral ans Tablet Tablet amLODIPine amLODIPine Yes [facility] Besylate 10 Besylate 10 P hysici MG Oral MG Oral ans Tablet Tablet Atorvastati Atorvastati Yes U T n Calcium n Calcium Physi ci 40 MG Oral 40 MG Oral ans Tablet Tablet Effexor XR Effexor XR Yes UT 150 MG Oral 150 MG Oral P hysici Capsule Capsule ans Extended Extended Release 24 Release 24 Hour Hour Lisinopril Lisinopril Yes UT 20 MG Oral 20 MG Oral Phy sici Tablet Tablet ans Pantoprazol Pantoprazol Yes U T e Sodium 40 e Sodium 40 P hysici MG Oral MG Oral ans Tablet Tablet Delayed Delayed Release Release ProAir HFA ProAir HFA Yes [facility] AERS AERS Physici ans predniSONE predniSONE Yes [facility] TABS TABS Physici ans Immunizations Ordered Filled Immunization Date Status Comments [facility] e Immunization Name Name Influenza Virus 2022-03-12 Completed [facility], 00:00:00 [place] [facility] Preserv and ABX Branch Free 6 MO-64 YRS Influenza Virus 2022-03-12 Completed [facility]ine [facility] IM, 00:00:00 [place] [facility] Preserv and ABX Branch Free 6 MO-64 YRS Influenza Virus 2022-03-12 Completed [facility] y of Vaccine [facility] IM, 00:00:00 [place] [facility] Preserv and ABX Branch Free 6 MO-64 YRS Influenza Virus 2022-03-12 Completed [facility]it y of [facility]ine [facility] IM, 00:00:00 [place] [facility] Preserv and ABX Branch Free 6 MO-64 YRS Influenza Virus 2022-03-12 Completed [facility] y [facility]ine [facility] IM, 00:00:00 [place] [facility] Preserv and ABX Branch Free 6 MO-64 YRS Influenza Virus 2022-03-12 Completed [facility]it y of Vaccine [facility] IM, 00:00:00 [place] [facility] Preserv and ABX Branch Free 6 MO-64 YRS Influenza Virus 2022-03-12 Completed [facility] y [facility] Vaccine [facility] IM, 00:00:00 [place] [facility] Preserv and ABX Branch Free 6 MO-64 YRS Influenza Virus 2022-03-12 Completed [facility]it y of Vaccine [facility] IM, 00:00:00 [place] [facility] Preserv and ABX Branch Free 6 MO-64 YRS Influenza Virus 2022-03-12 Completed [facility]it y of Vaccine [facility] IM, 00:00:00 [place] [facility] Preserv and ABX Branch Free 6 MO-64 YRS Influenza Virus 2022-03-12 Completed [facility]it y of Vaccine [facility] IM, 00:00:00 [place] [facility] Preserv and ABX Branch Free 6 MO-64 YRS Influenza Virus 2022-03-12 Completed [facility]it y of Vaccine [facility] IM, 00:00:00 [place] [facility] Preserv and ABX Branch Free 6 MO-64 YRS Influenza Virus 2022-03-12 Completed Universit y of Vaccine [facility] IM, 00:00:00 [place] [facility] Preserv and ABX Branch Free 6 MO-64 YRS Influenza Virus 2022-03-12 Completed Universit y of Vaccine [facility] IM, 00:00:00 [place] [facility] Preserv and ABX Branch Free 6 MO-64 YRS Influenza Virus 2022-03-12 Completed [facility]it y of Vaccine [facility] IM, 00:00:00 [place] [facility] Preserv and ABX Branch Free 6 MO-64 YRS Influenza Virus 2022-03-12 Completed [facility]it y of Vaccine [facility] IM, 00:00:00 [place] [facility] Preserv and ABX Branch Free 6 MO-64 YRS Influenza Virus 2022-03-12 Completed [facility]it y of Vaccine [facility] IM, 00:00:00 [place] [facility] Preserv and ABX Branch Free 6 MO-64 YRS Influenza Virus 2022-03-12 Completed [facility]it y of Vaccine [facility] IM, 00:00:00 [place] [facility] Preserv and ABX Branch Free 6 MO-64 YRS Influenza Virus 2022-03-12 Completed [facility]it y of Vaccine [facility] IM, 00:00:00 [place] [facility] Preserv and ABX Branch Free 6 MO-64 YRS Influenza Virus 2022-03-12 Completed [facility]it y of Vaccine [facility] IM, 00:00:00 [place] [facility] Preserv and ABX Branch Free 6 MO-64 YRS Influenza Virus 2022-03-12 Completed [facility]it y of Vaccine [facility] IM, 00:00:00 [place] [facility] Preserv and ABX Branch Free 6 MO-64 YRS Influenza Virus 2022-03-12 Completed [facility]it y of Vaccine [facility] IM, 00:00:00 [place] [facility] Preserv and ABX Branch Free 6 MO-64 YRS Influenza Virus 2022-03-12 Completed [facility]it y of Vaccine [facility] IM, 00:00:00 [place] [facility]ical Preserv and ABX Branch Free 6 MO-64 YRS Influenza Virus 2022-03-12 Completed [facility]it y of Vaccine [facility] IM, 00:00:00 [place] [facility] Preserv and ABX Branch Free 6 MO-64 YRS Influenza Virus 2022-03-12 Completed [facility]it y of Vaccine [facility] IM, 00:00:00 [place] [facility] Preserv and ABX Branch Free 6 MO-64 YRS Influenza Virus 2022-03-12 Completed [facility]it y of Vaccine [facility] IM, 00:00:00 [place] [facility] Preserv and ABX Branch Free 6 MO-64 YRS Influenza Virus 2022-03-12 Completed Universit y of Vaccine Quad IM, 00:00:00 [place] [facility] Preserv and ABX Branch Free 6 MO-64 YRS Influenza Virus 2022-03-12 Completed Universit y of Vaccine Quad IM, 00:00:00 [place] [facility] Preserv and ABX Branch Free 6 MO-64 YRS Influenza Virus 2022-03-12 Completed Universit y of Vaccine Quad IM, 00:00:00 [place] [facility] Preserv and ABX Branch Free 6 MO-64 YRS Influenza Virus 2022-03-12 Completed [facility]it y of Vaccine Quad IM, 00:00:00 [place] [facility] Preserv and ABX Branch Free 6 MO-64 YRS Influenza Virus 2022-03-12 Completed Universit y of Vaccine Quad IM, 00:00:00 [place] [facility] Preserv and ABX Branch Free 6 MO-64 YRS TDAP 2021-08-31 Completed University of 00:00:00 [facility] TDAP 2021-08-31 Completed University of 00:00:00 [place] [facility] TDAP 2021-08-31 Completed University of 00:00:00 [place] [facility] TDAP 2021-08-31 Completed University of 00:00:00 [place] [facility] TDAP 2021-08-31 Completed University of 00:00:00 [place] [facility] TDAP 2021-08-31 Completed University of 00:00:00 [place] [facility] TDAP 2021-08-31 Completed University of 00:00:00 [place] [facility] TDAP 2021-08-31 Completed University of 00:00:00 [place] [facility] TDAP 2021-08-31 Completed University of 00:00:00 [place] [facility] TDAP 2021-08-31 Completed University of 00:00:00 [place] [facility] TDAP 2021-08-31 Completed University of 00:00:00 [place] [facility] TDAP 2021-08-31 Completed University of 00:00:00 [place] [facility] TDAP 2021-08-31 Completed University of 00:00:00 [place] [facility] TDAP 2021-08-31 Completed University of 00:00:00 [place] [facility] TDAP 2021-08-31 Completed University of 00:00:00 [place] [facility] TDAP 2021-08-31 Completed University of 00:00:00 [place] [facility] TDAP 2021-08-31 Completed University of 00:00:00 [place] [facility] TDAP 2021-08-31 Completed University of 00:00:00 [facility] TDAP 2021-08-31 Completed University of 00:00:00 [facility] Branch TDAP 2021-08-31 Completed University of 00:00:00 [place] [facility] TDAP 2021-08-31 Completed University of 00:00:00 [place] [facility] TDAP 2021-08-31 Completed University of 00:00:00 [place] [facility] TDAP 2021-08-31 Completed University of 00:00:00 [place] [facility] TDAP 2021-08-31 Completed University of 00:00:00 [place] [facility] TDAP 2021-08-31 Completed University of 00:00:00 [place] [facility] TDAP 2021-08-31 Completed University of 00:00:00 [place] [facility] TDAP 2021-08-31 Completed University of 00:00:00 [place] [facility] TDAP 2021-08-31 Completed University of 00:00:00 [facility] TDAP 2021-08-31 Completed University of 00:00:00 [place] [facility] TDAP 2021-08-31 Completed University of 00:00:00 [place] [facility] TDAP 2021-08-31 Completed University of 00:00:00 [place] [facility] TDAP 2021-08-31 Completed University of 00:00:00 [place] [facility] TDAP 2021-08-31 Completed University of 00:00:00 [place] [facility] TDAP 2021-08-31 Completed University of 00:00:00 [place] [facility] TDAP 2021-08-31 Completed University of 00:00:00 [place] [facility] TDAP 2021-08-31 Completed University of 00:00:00 [place] [facility] TDAP 2021-08-31 Completed University of 00:00:00 [place] [facility] TDAP 2021-08-31 Completed University of 00:00:00 [place] [facility] TDAP 2021-08-31 Completed University of 00:00:00 [place] [facility] TDAP 2021-08-31 Completed University of 00:00:00 [facility] TDAP 2021-08-31 Completed University of 00:00:00 [facility] Influenza Virus 2021-04-14 Completed Universit y of Vaccine [facility] .5 mL 00:00:00 [place] [facility] 6+ MO Branch Influenza Virus 2021-04-14 Completed [facility] Vaccine [facility] .5 mL 00:00:00 [place] [facility] 6+ MO Branch Influenza Virus 2021-04-14 Completed [facility] y of Vaccine [facility] .5 mL 00:00:00 [place] [facility] IM 6+ MO Branch Influenza Virus 2021-04-14 Completed [facility] y of Vaccine [facility] .5 mL 00:00:00 [place] [facility] IM 6+ MO Branch Influenza Virus 2021-04-14 Completed [facility] y of Vaccine [facility] .5 mL 00:00:00 [place] [facility] IM 6+ MO Branch Influenza Virus 2021-04-14 Completed [facility] y of Vaccine [facility] .5 mL 00:00:00 [place] [facility] IM 6+ MO Branch Influenza Virus 2021-04-14 Completed [facility] y of Vaccine [facility] .5 mL 00:00:00 [place] [facility] IM 6+ MO Branch Influenza Virus 2021-04-14 Completed [facility] y of Vaccine [facility] .5 mL 00:00:00 [place] [facility] 6+ MO Branch Influenza Virus 2021-04-14 Completed [facility] y of Vaccine [facility] .5 mL 00:00:00 [place] [facility] IM 6+ MO Branch Influenza Virus 2021-04-14 Completed [facility] y of Vaccine [facility] .5 mL 00:00:00 [place] [facility] IM 6+ MO Branch Influenza Virus 2021-04-14 Completed [facility] y of Vaccine [facility] .5 mL 00:00:00 [place] [facility] IM 6+ MO Branch Influenza Virus 2021-04-14 Completed [facility] y of Vaccine [facility] .5 mL 00:00:00 [place] [facility] IM 6+ MO Branch Influenza Virus 2021-04-14 Completed [facility] y of Vaccine [facility] .5 mL 00:00:00 [place] [facility] IM 6+ MO Branch Influenza Virus 2021-04-14 Completed [facility] y of Vaccine [facility] .5 mL 00:00:00 [place] [facility] IM 6+ MO Branch Influenza Virus 2021-04-14 Completed [facility] y of Vaccine [facility] .5 mL 00:00:00 [place] [facility] IM 6+ MO Branch Influenza Virus 2021-04-14 Completed [facility] y of Vaccine [facility] .5 mL 00:00:00 [place] [facility] IM 6+ MO Branch Influenza Virus 2021-04-14 Completed [facility] y of Vaccine [facility] .5 mL 00:00:00 [place] [facility] IM 6+ MO Branch Influenza Virus 2021-04-14 Completed [facility] y of Vaccine [facility] .5 mL 00:00:00 [place] [facility] IM 6+ MO Branch Influenza Virus 2021-04-14 Completed [facility] y of Vaccine [facility] .5 mL 00:00:00 [place] [facility] IM 6+ MO Branch Influenza Virus 2021-04-14 Completed [facility] y of Vaccine [facility] .5 mL 00:00:00 [place] [facility] IM 6+ MO Branch Influenza Virus 2021-04-14 Completed [facility] y of Vaccine Quad .5 mL 00:00:00 [place] [facility] IM 6+ MO Branch Influenza Virus 2021-04-14 Completed [facility]it y of Vaccine Quad .5 mL 00:00:00 [place] [facility] IM 6+ MO Branch Influenza Virus 2021-04-14 Completed [facility] y of Vaccine Quad .5 mL 00:00:00 [place] [facility] IM 6+ MO Branch Influenza Virus 2021-04-14 Completed [facility]it y of Vaccine [facility] .5 mL 00:00:00 [place] [facility] IM 6+ MO Branch Influenza Virus 2021-04-14 Completed [facility]it y of Vaccine Quad .5 mL 00:00:00 [place] [facility] IM 6+ MO Branch Influenza Virus 2021-04-14 Completed [facility] y of Vaccine Quad .5 mL 00:00:00 [place] [facility] IM 6+ MO Branch Influenza Virus 2021-04-14 Completed [facility]it y of Vaccine Quad .5 mL 00:00:00 [place] [facility] IM 6+ MO Branch Influenza Virus 2021-04-14 Completed [facility] y of Vaccine [facility] .5 mL 00:00:00 [place] [facility] IM 6+ MO Branch Influenza Virus 2021-04-14 Completed [facility] y of Vaccine [facility] .5 mL 00:00:00 [place] [facility] IM 6+ MO Branch Influenza Virus 2021-04-14 Completed [facility] y of Vaccine [facility] .5 mL 00:00:00 [place] [facility] IM 6+ MO Branch Influenza Virus 2021-04-14 Completed [facility] y of Vaccine Quad .5 mL 00:00:00 [place] [facility] IM 6+ MO Branch Influenza Virus 2021-04-14 Completed [facility] y of Vaccine [facility] .5 mL 00:00:00 [place] [facility] IM 6+ MO Branch Influenza Virus 2021-04-14 Completed [facility] y of Vaccine Quad .5 mL 00:00:00 [place] [facility] IM 6+ MO Branch Influenza Virus 2021-04-14 Completed [facility] y of Vaccine [facility] .5 mL 00:00:00 [place] [facility] IM 6+ MO Branch Influenza Virus 2021-04-14 Completed [facility] y of Vaccine Quad .5 mL 00:00:00 [place] [facility] IM 6+ MO Branch Influenza Virus 2021-04-14 Completed [facility] y of Vaccine [facility] .5 mL 00:00:00 [place] [facility] IM 6+ MO Branch Influenza Virus 2021-04-14 Completed [facility] y of Vaccine Quad .5 mL 00:00:00 [place] [facility] IM 6+ MO Branch Influenza Virus 2021-04-14 Completed [facility] y of Vaccine Quad .5 mL 00:00:00 [place] [facility] IM 6+ MO Branch Influenza Virus 2021-04-14 Completed [facility] y of Vaccine Quad .5 mL 00:00:00 [place] [facility] IM 6+ MO Branch Influenza Virus 2021-04-14 Completed [facility] y of Vaccine Quad .5 mL 00:00:00 [place] [facility] IM 6+ MO Branch Influenza Virus 2021-04-14 Completed [facility] of Vaccine [facility] .5 mL 00:00:00 [place] [facility] IM 6+ MO Branch SARS-COV-2 COVID-19 2020-12-10 Completed Unive rsity of PFIZER VACCINE 00:00:00 [facility] Branch SARS-COV-2 COVID-19 2020-12-10 Completed Unive rsity of PFIZER VACCINE 00:00:00 [facility] Branch SARS-COV-2 COVID-19 2020-12-10 Completed Unive rsity of PFIZER VACCINE 00:00:00 [facility] SARS-COV-2 COVID-19 2020-12-10 Completed [facility] PFIZER VACCINE 00:00:00 [facility] SARS-COV-2 COVID-19 2020-12-10 Completed [facility] PFIZER VACCINE 00:00:00 [facility] SARS-COV-2 COVID-19 2020-12-10 Completed [facility] of PFIZER VACCINE 00:00:00 [facility] SARS-COV-2 COVID-19 2020-12-10 Completed [facility] of PFIZER VACCINE 00:00:00 [facility] SARS-COV-2 COVID-19 2020-12-10 Completed [facility] PFIZER VACCINE 00:00:00 [facility] SARS-COV-2 COVID-19 2020-12-10 Completed [facility] of PFIZER VACCINE 00:00:00 [facility] SARS-COV-2 COVID-19 2020-12-10 Completed [facility] PFIZER VACCINE 00:00:00 [facility] SARS-COV-2 COVID-19 2020-12-10 Completed [facility] PFIZER VACCINE 00:00:00 [facility] SARS-COV-2 COVID-19 2020-12-10 Completed [facility] PFIZER VACCINE 00:00:00 [facility] SARS-COV-2 COVID-19 2020-12-10 Completed [facility] PFIZER VACCINE 00:00:00 [facility] SARS-COV-2 COVID-19 2020-12-10 Completed [facility] PFIZER VACCINE 00:00:00 [facility] SARS-COV-2 COVID-19 2020-12-10 Completed [facility] PFIZER VACCINE 00:00:00 [facility] SARS-COV-2 COVID-19 2020-12-10 Completed [facility] PFIZER VACCINE 00:00:00 [facility] SARS-COV-2 COVID-19 2020-12-10 Completed [facility] PFIZER VACCINE 00:00:00 [facility] SARS-COV-2 COVID-19 2020-12-10 Completed [facility] PFIZER VACCINE 00:00:00 [facility] SARS-COV-2 COVID-19 2020-12-10 Completed [facility] PFIZER VACCINE 00:00:00 [facility] SARS-COV-2 COVID-19 2020-12-10 Completed [facility] PFIZER VACCINE 00:00:00 [facility] SARS-COV-2 COVID-19 2020-12-10 Completed [facility] PFIZER VACCINE 00:00:00 [facility] SARS-COV-2 COVID-19 2020-12-10 Completed [facility] PFIZER VACCINE 00:00:00 [facility] SARS-COV-2 COVID-19 2020-12-10 Completed [facility] PFIZER VACCINE 00:00:00 [facility] SARS-COV-2 COVID-19 2020-12-10 Completed [facility] PFIZER VACCINE 00:00:00 [facility] SARS-COV-2 COVID-19 2020-12-10 Completed [facility] PFIZER VACCINE 00:00:00 [facility] SARS-COV-2 COVID-19 2020-12-10 Completed [facility] PFIZER VACCINE 00:00:00 [facility] SARS-COV-2 COVID-19 2020-12-10 Completed [facility] PFIZER VACCINE 00:00:00 [facility] SARS-COV-2 COVID-19 2020-12-10 Completed [facility] PFIZER VACCINE 00:00:00 [facility] SARS-COV-2 COVID-19 2020-12-10 Completed [facility] PFIZER VACCINE 00:00:00 [facility] SARS-COV-2 COVID-19 2020-12-10 Completed [facility] PFIZER VACCINE 00:00:00 [facility] SARS-COV-2 COVID-19 2020-12-10 Completed [facility] PFIZER VACCINE 00:00:00 [facility] SARS-COV-2 COVID-19 2020-12-10 Completed [facility] PFIZER VACCINE 00:00:00 [facility] SARS-COV-2 COVID-19 2020-12-10 Completed [facility] PFIZER VACCINE 00:00:00 [facility] SARS-COV-2 COVID-19 2020-12-10 Completed [facility] PFIZER VACCINE 00:00:00 [facility] SARS-COV-2 COVID-19 2020-12-10 Completed [facility] PFIZER VACCINE 00:00:00 [facility] SARS-COV-2 COVID-19 2020-12-10 Completed [facility] PFIZER VACCINE 00:00:00 [facility] SARS-COV-2 COVID-19 2020-12-10 Completed [facility] PFIZER VACCINE 00:00:00 [facility] SARS-COV-2 COVID-19 2020-12-10 Completed [facility] PFIZER VACCINE 00:00:00 [facility] SARS-COV-2 COVID-19 2020-12-10 Completed [facility] PFIZER VACCINE 00:00:00 [facility] SARS-COV-2 COVID-19 2020-12-10 Completed [facility] PFIZER VACCINE 00:00:00 [facility] SARS-COV-2 COVID-19 2020-12-10 Completed [facility] PFIZER VACCINE 00:00:00 [facility] SARS-COV-2 COVID-19 2020-11-19 Completed [facility] PFIZER VACCINE 00:00:00 [facility] SARS-COV-2 COVID-19 2020-11-19 Completed [facility] PFIZER VACCINE 00:00:00 [facility] SARS-COV-2 COVID-19 2020-11-19 Completed [facility] PFIZER VACCINE 00:00:00 [facility] SARS-COV-2 COVID-19 2020-11-19 Completed [facility] PFIZER VACCINE 00:00:00 [facility] SARS-COV-2 COVID-19 2020-11-19 Completed [facility] PFIZER VACCINE 00:00:00 [facility] SARS-COV-2 COVID-19 2020-11-19 Completed [facility] PFIZER VACCINE 00:00:00 [facility] SARS-COV-2 COVID-19 2020-11-19 Completed [facility] PFIZER VACCINE 00:00:00 [facility] SARS-COV-2 COVID-19 2020-11-19 Completed [facility] PFIZER VACCINE 00:00:00 [facility] SARS-COV-2 COVID-19 2020-11-19 Completed [facility] PFIZER VACCINE 00:00:00 [facility] SARS-COV-2 COVID-19 2020-11-19 Completed [facility] PFIZER VACCINE 00:00:00 [facility] SARS-COV-2 COVID-19 2020-11-19 Completed [facility] PFIZER VACCINE 00:00:00 [facility] SARS-COV-2 COVID-19 2020-11-19 Completed [facility] PFIZER VACCINE 00:00:00 [facility] SARS-COV-2 COVID-19 2020-11-19 Completed [facility] PFIZER VACCINE 00:00:00 [facility] SARS-COV-2 COVID-19 2020-11-19 Completed [facility] PFIZER VACCINE 00:00:00 [facility] SARS-COV-2 COVID-19 2020-11-19 Completed [facility] PFIZER VACCINE 00:00:00 [facility] SARS-COV-2 COVID-19 2020-11-19 Completed [facility] PFIZER VACCINE 00:00:00 [facility] SARS-COV-2 COVID-19 2020-11-19 Completed [facility] PFIZER VACCINE 00:00:00 [facility] SARS-COV-2 COVID-19 2020-11-19 Completed [facility] PFIZER VACCINE 00:00:00 [facility] SARS-COV-2 COVID-19 2020-11-19 Completed [facility] PFIZER VACCINE 00:00:00 [facility] SARS-COV-2 COVID-19 2020-11-19 Completed [facility] PFIZER VACCINE 00:00:00 [facility] SARS-COV-2 COVID-19 2020-11-19 Completed [facility] PFIZER VACCINE 00:00:00 [facility] SARS-COV-2 COVID-19 2020-11-19 Completed [facility] of PFIZER VACCINE 00:00:00 [facility] SARS-COV-2 COVID-19 2020-11-19 Completed [facility] PFIZER VACCINE 00:00:00 [facility] SARS-COV-2 COVID-19 2020-11-19 Completed [facility] PFIZER VACCINE 00:00:00 [facility] SARS-COV-2 COVID-19 2020-11-19 Completed [facility] PFIZER VACCINE 00:00:00 [facility] SARS-COV-2 COVID-19 2020-11-19 Completed [facility] PFIZER VACCINE 00:00:00 [facility] SARS-COV-2 COVID-19 2020-11-19 Completed [facility] PFIZER VACCINE 00:00:00 [facility] SARS-COV-2 COVID-19 2020-11-19 Completed [facility] PFIZER VACCINE 00:00:00 [facility] SARS-COV-2 COVID-19 2020-11-19 Completed [facility] PFIZER VACCINE 00:00:00 [facility] SARS-COV-2 COVID-19 2020-11-19 Completed [facility] PFIZER VACCINE 00:00:00 [facility] SARS-COV-2 COVID-19 2020-11-19 Completed [facility] PFIZER VACCINE 00:00:00 [facility] SARS-COV-2 COVID-19 2020-11-19 Completed [facility] PFIZER VACCINE 00:00:00 [facility] SARS-COV-2 COVID-19 2020-11-19 Completed [facility] PFIZER VACCINE 00:00:00 [facility] SARS-COV-2 COVID-19 2020-11-19 Completed [facility] PFIZER VACCINE 00:00:00 [facility] SARS-COV-2 COVID-19 2020-11-19 Completed [facility] PFIZER VACCINE 00:00:00 [facility] SARS-COV-2 COVID-19 2020-11-19 Completed [facility] PFIZER VACCINE 00:00:00 [facility] SARS-COV-2 COVID-19 2020-11-19 Completed [facility] PFIZER VACCINE 00:00:00 [facility] SARS-COV-2 COVID-19 2020-11-19 Completed [facility] of PFIZER VACCINE 00:00:00 [facility] SARS-COV-2 COVID-19 2020-11-19 Completed [facility] of PFIZER VACCINE 00:00:00 [facility] SARS-COV-2 COVID-19 2020-11-19 Completed [facility] of PFIZER VACCINE 00:00:00 [facility] SARS-COV-2 COVID-19 2020-11-19 Completed [facility] PFIZER VACCINE 00:00:00 [facility] Pneumococcal 2018-07-05 Completed [facility] Polysaccharide, 00:00:00 [place] [facility] PPSV23 (PNEUMOVAX) [facility] Pneumococcal 2018-07-05 Completed [facility] f Polysaccharide, 00:00:00 [place] [facility] PPSV23 (PNEUMOVAX) [facility] Pneumococcal 2018-07-05 Completed [facility] f Polysaccharide, 00:00:00 [place] [facility] PPSV23 (PNEUMOVAX) [facility] Pneumococcal 2018-07-05 Completed [facility] f Polysaccharide, 00:00:00 [place] [facility] PPSV23 (PNEUMOVAX) [facility] Pneumococcal 2018-07-05 Completed [facility] f Polysaccharide, 00:00:00 [place] [facility] PPSV23 (PNEUMOVAX) [facility] Pneumococcal 2018-07-05 Completed [facility] f Polysaccharide, 00:00:00 [place] [facility] PPSV23 (PNEUMOVAX) [facility] Pneumococcal 2018-07-05 Completed [facility] f Polysaccharide, 00:00:00 [place] [facility] PPSV23 (PNEUMOVAX) [facility] Pneumococcal 2018-07-05 Completed [facility] f Polysaccharide, 00:00:00 [place] [facility] PPSV23 (PNEUMOVAX) [facility] Pneumococcal 2018-07-05 Completed [facility] f Polysaccharide, 00:00:00 [place] [facility] PPSV23 (PNEUMOVAX) [facility] Pneumococcal 2018-07-05 Completed [facility] f Polysaccharide, 00:00:00 [place] [facility] PPSV23 (PNEUMOVAX) [facility] Pneumococcal 2018-07-05 Completed [facility] f Polysaccharide, 00:00:00 [place] [facility] PPSV23 (PNEUMOVAX) [facility] Pneumococcal 2018-07-05 Completed [facility] f Polysaccharide, 00:00:00 [place] [facility] PPSV23 (PNEUMOVAX) [facility] Pneumococcal 2018-07-05 Completed [facility] f Polysaccharide, 00:00:00 [place] [facility] PPSV23 (PNEUMOVAX) [facility] Pneumococcal 2018-07-05 Completed [facility] f Polysaccharide, 00:00:00 [place] [facility] PPSV23 (PNEUMOVAX) [facility] Pneumococcal 2018-07-05 Completed [facility] f Polysaccharide, 00:00:00 [place] [facility] PPSV23 (PNEUMOVAX) [facility] Pneumococcal 2018-07-05 Completed [facility] f Polysaccharide, 00:00:00 [place] [facility] PPSV23 (PNEUMOVAX) [facility] Pneumococcal 2018-07-05 Completed [facility] f Polysaccharide, 00:00:00 [place] [facility] PPSV23 (PNEUMOVAX) [facility] Pneumococcal 2018-07-05 Completed [facility] f Polysaccharide, 00:00:00 [place] [facility] PPSV23 (PNEUMOVAX) [facility] Pneumococcal 2018-07-05 Completed [facility] f Polysaccharide, 00:00:00 [place] [facility] PPSV23 (PNEUMOVAX) [facility] Pneumococcal 2018-07-05 Completed [facility] f Polysaccharide, 00:00:00 [place] [facility] PPSV23 (PNEUMOVAX) [facility] Pneumococcal 2018-07-05 Completed [facility] f Polysaccharide, 00:00:00 [place] [facility] PPSV23 (PNEUMOVAX) [facility] Pneumococcal 2018-07-05 Completed [facility] f Polysaccharide, 00:00:00 [place] [facility] PPSV23 (PNEUMOVAX) [facility] Pneumococcal 2018-07-05 Completed [facility] f Polysaccharide, 00:00:00 [place] [facility] PPSV23 (PNEUMOVAX) [facility] Pneumococcal 2018-07-05 Completed [facility] f Polysaccharide, 00:00:00 [place] [facility] PPSV23 (PNEUMOVAX) [facility] Pneumococcal 2018-07-05 Completed [facility] f Polysaccharide, 00:00:00 [place] [facility] PPSV23 (PNEUMOVAX) [facility] Pneumococcal 2018-07-05 Completed [facility] f Polysaccharide, 00:00:00 [place] [facility] PPSV23 (PNEUMOVAX) [facility] Pneumococcal 2018-07-05 Completed [facility] f Polysaccharide, 00:00:00 [place] [facility] PPSV23 (PNEUMOVAX) [facility] Pneumococcal 2018-07-05 Completed [facility] f Polysaccharide, 00:00:00 [place] [facility] PPSV23 (PNEUMOVAX) [facility] Pneumococcal 2018-07-05 Completed [facility] f Polysaccharide, 00:00:00 [place] [facility] PPSV23 (PNEUMOVAX) [facility] Pneumococcal 2018-07-05 Completed [facility] f Polysaccharide, 00:00:00 [place] [facility] PPSV23 (PNEUMOVAX) [facility] Pneumococcal 2018-07-05 Completed [facility] f Polysaccharide, 00:00:00 [place] [facility] PPSV23 (PNEUMOVAX) [facility] Pneumococcal 2018-07-05 Completed [facility] f Polysaccharide, 00:00:00 [place] [facility] PPSV23 (PNEUMOVAX) [facility] Pneumococcal 2018-07-05 Completed [facility] f Polysaccharide, 00:00:00 [place] [facility] PPSV23 (PNEUMOVAX) [facility] Pneumococcal 2018-07-05 Completed [facility] f Polysaccharide, 00:00:00 [place] [facility] PPSV23 (PNEUMOVAX) [facility] Pneumococcal 2018-07-05 Completed [facility] f Polysaccharide, 00:00:00 [place] [facility] PPSV23 (PNEUMOVAX) [facility] Pneumococcal 2018-07-05 Completed [facility] f Polysaccharide, 00:00:00 [place] [facility] PPSV23 (PNEUMOVAX) [facility] Pneumococcal 2018-07-05 Completed [facility] f Polysaccharide, 00:00:00 [place] [facility] PPSV23 (PNEUMOVAX) [facility] Pneumococcal 2018-07-05 Completed [facility] f Polysaccharide, 00:00:00 [place] [facility] PPSV23 (PNEUMOVAX) [facility] Pneumococcal 2018-07-05 Completed [facility] f Polysaccharide, 00:00:00 [place] [facility] PPSV23 (PNEUMOVAX) [facility] Pneumococcal 2018-07-05 Completed [facility] f Polysaccharide, 00:00:00 [place] [facility] PPSV23 (PNEUMOVAX) [facility] Pneumococcal 2018-07-05 Completed [facility] f Polysaccharide, 00:00:00 [place] [facility] PPSV23 (PNEUMOVAX) Branch pneumococcal 2018-06-15 Completed [facility] 23-valent vaccine 19:53:00 Vital Signs Vital Name Observation Time Observation Value Comments Source Systolic blood 2022-05-27 130 mm[Hg] [facility] pressure 21:27:00 [facility] Diastolic blood 2022-05-27 86 mm[Hg] [place] [facility] pressure 21:27:00 [facility] Heart rate 2022-05-27 54 /min [facility] 21:27:00 [facility] Body temperature 2022-05-27 36.72 Elizabeth [facility] 21:27:00 [facility] Body height 2022-05-27 160 cm [facility] :27:00 [facility] Body weight 2022-05-27 101.288 kg [facility] 21:27:00 [facility] BMI 2022-05-27 39.56 kg/m2 University of 21:27:00 [facility] Oxygen saturation 2022-05-27 98 /min [facility] of in Arterial blood 21:27:00 [facility] Pulse oximetry Branch Systolic blood 2022-05-17 105 mm[Hg] [facility] of pressure 17:17:00 [facility] Diastolic blood 2022-05-17 71 mm[Hg] [facility] pressure 17:17:00 [facility] Heart rate 2022-05-17 48 /min [facility] of 17:17:00 [facility] Body temperature 2022-05-17 37.06 Elizabeth [facility] 17:17:00 [facility] Body height 2022-05-17 160 cm University of 17:17:00 [facility] Body weight 2022-05-17 102.967 kg University of 17:17:00 [facility] BMI 2022-05-17 40.21 kg/m2 University of 17:17:00 [facility] Oxygen saturation 2022-05-17 99 /min [place] [facility] in Arterial blood 17:17:00 [facility] Pulse oximetry [facility] Systolic blood 2022-04-15 149 mm[Hg] [facility] of pressure 21:00:00 [facility] Diastolic blood 2022-04-15 93 mm[Hg] [facility] pressure 21:00:00 [facility] Heart rate 2022-04-15 47 /min [facility] of 21:00:00 [facility] Respiratory rate 2022-04-15 13 /min [facility] of 21:00:00 [facility] Oxygen saturation 2022-04-15 99 /min [place] [facility] in Arterial blood 21:00:00 [facility] Pulse oxim[facility] Body temperature 2022-04-15 36.56 Elizabeth [facility] 18:50:00 [facility] Body height 2022-04-15 160 cm University of 18:50:00 [facility] Body weight 2022-04-15 99.791 kg University of 18:50:00 [facility] BMI 2022-04-15 38.97 kg/m2 University of 18:50:00 [facility] Systolic blood 2022-04-15 139 mm[Hg] [facility] of pressure 17:50:00 [facility] Diastolic blood 2022-04-15 86 mm[Hg] [facility] pressure 17:50:00 [facility] Heart rate 2022-04-15 49 /min [facility] of 17:50:00 [facility] Body height 2022-04-15 160 cm [facility] of 17:50:00 [facility] Body weight 2022-04-15 99.338 kg University of 17:50:00 [facility] BMI 2022-04-15 38.79 kg/m2 University of 17:50:00 [facility] Oxygen saturation 2022-04-15 100 /min [facility] in Arterial blood 17:50:00 [place] [facility] Systolic blood 2022-03-12 118 mm[Hg] [facility] of pressure 13:26:00 [facility] Diastolic blood 2022-03-12 79 mm[Hg] [facility] f pressure 13:26:00 [facility] Heart rate 2022-03-12 48 /min [facility] of 13:26:00 [facility] Body height 2022-03-12 160 cm University of 13:26:00 [facility] Body weight 2022-03-12 99.746 kg University of 13:26:00 [facility] BMI 2022-03-12 38.95 kg/m2 University of 13:26:00 [facility] Oxygen saturation 2022-03-12 100 /min [facility] in Arterial blood 13:26:00 [place] [facility] Pulse oxim[facility] Systolic blood 2022-03-10 114 mm[Hg] [facility] of pressure 20:14:00 [facility] Diastolic blood 2022-03-10 75 mm[Hg] [facility] f pressure 20:14:00 [facility] Heart rate 2022-03-10 69 /min [facility] of 20:14:00 [facility] Body temperature 2022-03-10 36.78 Elizabeth [facility] 20:14:00 [facility] Body height 2022-03-10 160 cm University of 20:14:00 [facility] Body weight 2022-03-10 99.791 kg University of 20:14:00 [facility] BMI 2022-03-10 38.97 kg/m2 University of 20:14:00 [facility] Oxygen saturation 2022-03-10 100 /min [facility] in Arterial blood 20:14:00 [place] [facility] Pulse oximetry [facility] Body height 2022-03-04 160 cm [facility] of 19:56:00 [facility] Body weight 2022-03-04 98.431 kg University of 19:56:00 [facility] BMI 2022-03-04 38.44 kg/m2 [facility] 19:56:00 [facility] Systolic blood 2022-02-23 129 mm[Hg] [facility] of pressure 14:48:00 [facility] Diastolic blood 2022-02-23 78 mm[Hg] [place] [facility] pressure 14:48:00 [facility] Heart rate 2022-02-23 51 /min [facility] 14:48:00 [facility] Body temperature 2022-02-23 36.22 [facility] 14:48:00 [facility] Respiratory rate 2022-02-23 17 /min [facility] 14:48:00 [facility] Body height 2022-02-23 160 cm per pt [facility] 14:48:00 [facility] Body weight 2022-02-23 98.657 kg [facility] 14:48:00 [facility] BMI 2022-02-23 38.53 kg/m2 [facility] 14:48:00 [facility] Oxygen saturation 2022-02-23 98 /min [facility] in Arterial blood 14:48:00 [facility] Pulse oximetry Branch Respitory Rate 2018-09-27 [facility] mio 17:30:00 Systolic (mm Hg) 2018-09-27 [facility] rmann 17:30:00 Diastolic (mm Hg) 2018-09-27 [facility] ermann 17:30:00 Systolic (mm Hg) 2018-09-27 [facility] rmann 17:00:00 Diastolic (mm Hg) 2018-09-27 [facility] ermann 17:00:00 Respitory Rate 2018-09-27 [facility] 17:00:00 Systolic (mm Hg) 2018-09-27 [facility] rmann 16:45:00 Diastolic (mm Hg) 2018-09-27 [facility] ermann 16:45:00 Respitory Rate 2018-09-27 [facility] 16:45:00 Heart Rate 2018-09-27 [facility] 13:00:00 BMI Calculated 2018-09-13 [facility] 17:20:00 Weight 2018-09-13 [facility] 17:20:00 Height 2018-09-13 160.02 cm [facility] 17:20:00 Heart Rate 2018-09-13 [facility] 17:20:00 BP Systolic 2018-08-04 153 mm[Hg] Location: E; [facility] 11:06:00 Position: Sitting BP Diastolic 2018-08-04 96 mm[Hg] Location: LUE; [facility] 11:06:00 Position: Sitting Height 2018-08-04 63 [in_us] [facility] 11:06:00 Weight 2018-08-04 361 [lb_av] [facility] 11:06:00 Body Mass Index 2018-08-04 63.95 kg/m2 [facility] Calculated 11:06:00 Temperature 2018-08-04 97.4 [degF] Method: Oral [facility] 11:06:00 Heart Rate 2018-08-04 77 /min [facility] 11:06:00 Systolic (mm Hg) 2018-06-15 [facility] 18:[facility]:00 Diastolic (mm Hg) 2018-06-15 [facility] 18:00:00 Respitory Rate 2018-06-15 [facility] 17:00:00 Respitory Rate 2018-06-15 [facility] 14:00:00 Systolic (mm Hg) 2018-06-15 [facility] 14:00:00 Diastolic (mm Hg) 2018-06-15 [facility] 14:00:00 Respitory Rate 2018-06-15 [facility] 13:00:00 Systolic (mm Hg) 2018-06-15 [facility] 12:00:00 Diastolic (mm Hg) 2018-06-15 [facility] 12:00:00 Temperature Oral 2018-06-15 98.4 F [facility] (F) 02:00:00 Temperature Oral 2018-06-14 97.7 F [facility] (F) 22:00:00 Height 2018-06-13 160.02 cm [facility] 16:57:00 Height 2018-06-13 160.02 cm [facility] 15:48:00 Height 2018-06-13 160.02 cm [facility] 14:19:00 BMI Calculated 2018-06-13 [facility] 10:34:00 Weight 2018-06-13 [facility] 10:34:00 BP Systolic 2018-05-09 165 mm[Hg] Location: LUE; [facility] 00:00:00 Position: Sitting BP Diastolic 2018-05-09 91 mm[Hg] Location: LUE; [facility] 00:00:00 Position: Sitting Height 2018-05-09 63 [in_us] [facility] 00:00:00 Weight 2018-05-09 354.375 [lb_av] [facility] 00:00:00 Body Mass Index 2018-05-09 62.77 kg/m2 [facility] Calculated 00:00:00 Temperature 2018-05-09 99 [degF] Method: Oral [facility] [facility] 00:00:00 Heart Rate 2018-05-09 66 /min [facility] 00:00:00 BP Systolic 2018-02-21 155 mm[Hg] Location: LUE; [facility] 17:49:00 Position: Sitting BP Diastolic 2018-02-21 93 mm[Hg] Location: LUE; [facility] 17:49:00 Position: Sitting Height 2018-02-21 63 [in_us] [facility] 17:49:00 Weight 2018-02-21 355 [lb_av] [facility] 17:49:00 Body Mass Index 2018-02-21 62.89 kg/m2 [facility] 17:49:00 Temperature 2018-02-21 98.5 [degF] Method: Oral [facility] 17:49:00 Heart Rate 2018-02-21 82 /min [facility] 17:49:00 BP Systolic 2018-01-17 158 mm[Hg] Location: LUE; [facility] 14:18:00 Position: Sitting BP Diastolic 2018-01-17 95 mm[Hg] Location: LUE; [facility] 14:18:00 Position: Sitting Height 2018-01-17 63 [in_us] [facility] 14:18:00 Weight 2018-01-17 354 [lb_av] [facility] 14:18:00 Body Mass Index 2018-01-17 62.71 kg/m2 [facility] 14:18:00 Temperature 2018-01-17 98.1 [degF] Method: Oral [facility] 14:18:00 Heart Rate 2018-01-17 80 /min [facility] 14:18:00 BP Systolic 2017-12-16 146 mm[Hg] Location: LUE; [facility] 09:28:00 Position: Sitting BP Diastolic 2017-12-16 98 mm[Hg] Location: LUE; [facility] 09:28:00 Position: Sitting Height 2017-12-16 63 [in_us] [facility] 09:28:00 Weight 2017-12-16 365 [lb_av] [facility] 09:28:00 Body Mass Index 2017-12-16 64.66 kg/m2 [facility] 09:28:00 Temperature 2017-12-16 98.1 [degF] Method: Oral [facility] 09:28:00 Heart Rate 2017-12-16 66 /min [facility] 09:28:00 Procedures Procedure Date / Time Performing Clinician Source Performed HB CREATININE SERUM/BLOOD 2022-05-18 20:21:00 Jann Hopkins [facility] FOR IMAGING [facility] CT SOFT TISSUE NECK W 2022-05-18 19:30:00 Jann Hopkins [facility] CONTRAST [facility] EKG-12 LEAD 2022-04-15 20:41:[address] [facility] CT ABDOMEN PELVIS W 2022-04-15 20:20:16 Deuce Joshi [facility] 2022-04-15 19:22:[address] [facility] TROPONIN I 2022-04-15 19:22:[address] [facility] HEPATIC FUNCTION PANEL 2022-04-15 19:22:00 Deuce Joshi [facility] ([id number]) (ALB,T.PRO,BILI Medical Branch T,BU/BC,ALT,AST,ALK PHOS) BASIC METABOLIC PANEL (NA, 2022-04-15 19:22:[address] [facility] K, CL, CO2, GLUCOSE, BUN, Medica l Branch CREATININE, CA) CBC WITH DIFF 2022-04-15 19:22:[address] [facility] URINALYSIS 2022-04-15 19:22:[address] [facility] N-TERMINAL PRO-BNP 2022-04-15 19:22:00 Deuce Joshi [facility] CONSENT/REFUSAL FOR 2022-04-15 18:46:02 Doctor Unassigned, [facility] DIAGNOSIS AND TREATMENT [place] [facility] [place] EXTERNAL PROVIDER - ADC 2022-03-23 05:01:00 Doctor Unassigned, [facility] CARDIOLOGY [place] [facility] FLU VACC ([phone]), 6 2022-03-12 14:03:53 Doctor Unassigned, [facility] MO-64 YRS, .5ML, IM, QUAD [place] Medica l [facility] (FLUCELVAX) OPHTHALMOLOGY DIAGNOSTIC 2022-03-04 05:01:00 Doctor Unassigned, [facility] TEST [place] [facility] [id number] 2021-05-04 00:00:00 [facility] [id number] 2021-05-04 00:00:00 [facility] [id number] 2021-05-04 00:00:00 [facility] [id number] 2021-05-04 00:00:00 [facility] Arthroscopy of knee with 2015-01-13 05:00:00 Roldan Marquez medial and lateral meniscectomy Operation<sup>1</sup> 2013-06-13 06:00:00 Everton Barr Hysterectomy 2008-06-13 06:00:00 [facility] Her espino Tubal ligation 1996-06-13 06:00:00 [facility] Her espino Operation<sup>3</sup> 1980-06-13 06:00:00 Everton Barr [facility] of [facility] section [facility] of [facility]ste[facility] total [facility]olecyst[facility] History of Hernia repair [facility] History of Knee surgery [facility] Plan of Care Planned Activity Planned Date Details Comments Source Future Scheduled 2021-06-[address] [facility] Test 00:00:00 (12+) [code = [facility] DEPRESSION SCREENING (12+)] Future Scheduled 2021-02-[address] [facility] Test 00:00:00 (#1) [code = [facility] INFLUENZA VACCINE (#1)] Future Scheduled 2020-12-[address] [facility] 00:00:00 (procedure) [code = [facility] 35861902] Future Scheduled 2018-06-[address] [facility] Test 00:00:00 WELLNESS (YEAR 2 or Medical Center FIRST YEAR if no IPPE) [code = MEDICARE ANNUAL WELLNESS (YEAR 2 or FIRST YEAR if no IPPE)] Future Scheduled [address] [facility] Test 00:00:00 [facility] cervix (procedure) [code = 406487056] Future Scheduled 1994 DTAP/TDAP/TD VACCINES [facility] 00:00:00 (1 - Tdap) [code = Medical C enter DTAP/TDAP/TD VACCINES (1 - Tdap)] Future Scheduled 1993 HEPATITIS C [facility]CRE[facility]ING [facility] 00:00:00 [code = HEPATITIS C Medical Center SCREENING] Future Scheduled 1980 COVID-19 VACCINE (1) [facility] Test 00:00:00 [code = COVID-[address] VACCINE (1)] Future Scheduled [address] [facility] Test 00:00:00 malignant neoplasm of Medica Center colon (procedure) [code = 534028841] Encounters Start End Encounter Admission Attending Care Care Encounter Source Date/Time Date/Time Type Type Clinicians Facility Department ID 2021-04-14 Emergency [facility] [id number] Univers 05:36:15 ity of [facility] 2021-04-13 Emergency [facility] [id number] Univers 19:11:52 ity of [facility] 2021-04-13 Emergency [facility] [id number] Univers 07:22:27 ity of [facility] 2021-04-13 Emergency [facility] [id number] Univers 04:07:45 ity of [facility] 2021-04-12 Emergency [facility] [id number] Univers 16:56:52 ity of [facility] 2021-04-12 Emergency [facility] [id number] Univers 08:32:00 ity of [facility] 2021-04-12 Emergency [facility] [id number] Univers 06:29:54 ity of [facility] 2021-04-11 Emergency [facility] [id number] Univers 22:42:20 ity of [facility] 2021-04-10 Emergency [facility] [id number] Univers 16:12:53 ity of [facility] 2021-04-[address] [facility] [id number] Univers 14:48:53 ity of [facility] 2021-04-[address] [facility] [id number] Univers 02:01:13 ity of [facility] 2022-09-27 2022-09-27 Outpatient R PIPES, [facility] [id number] Univers 11:30:00 11:30:00 LEANNE dick [facility] 2022-07-19 2022-07-19 Outpatient R SANDEEP, [facility] [id number] Univers 09:30:00 09:30:00 JANN itdick [facility] 2022-07-15 2022-07-15 Telephone Sousa, DEMETRIOBertha [id number] Univers 00:00:00 00:00:00 Giannavicky GARCIAY 350.1.13.10 i [place] [id number] [address] 2022-06-18 2022-06-18 Patient Sandeep [facility] 1.2.840.114 [id number] Univers 00:00:00 00:00:00 Secure Msg Jann HEALTH 350.1.13.10 ity of [place] 4.2.7.2.686 Mau as [place] [id number] [address] OFFICE [facility] 2022-05-31 2022-05-31 Telephone Pipes, [facility] 1.2.235.815 [id number] Univers 00:00:00 00:00:00 Chemayi 350.1.13.10 it [place] [id number] [address] OFFICE [facility] 2022-05-27 2022-05-27 Office Pipes, [facility] 1.2.840.114 [id number] Univers 15:30:00 16:00:00 Visit Chemayi 350.1.13.10 it [place] [id number] [address] OFFICE [facility] 2022-05-27 2022-05-27 Outpatient R PIPES, [facility] [id number] Univers 15:30:00 15:30:00 [facility] 2022-05-24 2022-05-24 Telephone Pipes, [facility] 1.2.403.562 [id number] Univers 00:00:00 00:00:00 Leanne HEALTH 350.1.13.10 it y of [place] [id number] [facility] [address] OFFICE BUILDING 2022-05-18 2022-05-18 [facility] [id number] Univers 13:00:25 23:59:00 JANN tyler [facility] 2022-05-18 2022-05-18 Hospital MalaikaVA [facility] 1.2.840.114 [id number] Univers 13:00:00 23:59:00 Encounter Jann CABELLO 350.1.13.10 ity of [facility] 4.2.7.2.[place] [id number] [address] 2022-05-18 2022-05-18 Telephone MalaikaVA [facility] [id number] Univers 00:00:00 00:00:00 Jann HEALTH 350.1.13.10 it y of [place] 4.2.7.2.686 [place] [id number] [address] OFFICE [facility] 2022-05-17 2022-05-17 Outpatient [facility] [id number] Univers 11:45:00 23:59:00 JANN tyler [facility] 2022-05-17 2022-05-17 Outpatient [facility] [id number] Univers 15:30:00 15:30:00 JANN tyler [facility] 2022-05-17 2022-05-17 Office MalaikaVA [facility] 1.2.840.114 [id number] Univers 11:00:00 11:46:11 Visit Jann CHRISTIAN 350.1.13.10 it y of [place] 4.2.7.2.686 [place] [id number] [address] OFFICE [facility] 2022-04-15 2022-04-15 Emergency [facility] 1.2.914.826 [id number] Univers 13:52:00 16:33:00 Deuce CABELLO 350.1.13.10 i ty of [place].2.[place] [id number] [facility] diane [address] [place] 2022-04-15 2022-04-15 Outpatient R VAMSI, [facility] [id number] Univers 13:00:00 14:26:35 SAKINA tyler [facility] 2022-04-15 2022-04-15 Outpatient R VAMSI, [facility] ERT [id number] Univers 13:00:00 14:26:35 SAKINA tyler [facility] 2022-04-15 2022-04-15 [facility] 1.2.840.114 [id number] Univers 13:00:00 14:26:35 Visit Sakina A [facility] 350.1.13.10 i ty of [place] 4.2.7.2.686 Mau as [place]A [id number] Nv ashishut HARDY 044 [facility] OFFICE [facility] 2022-04-12 2022-04-12 Outpatient R PIP, [facility] [id number] Univers 16:00:00 16:00:00 [facility] 2022-04-12 2022-04-12 Telephone [facility] 1.2.197.771 [id number] Univers 00:00:00 00:00:00 Danitza CABELLO 350.1.13.10 ity of [place] [id number] [facility] NAL 9 [facility] 2022-04-07 2022-04-07 Telephone [facility] 1.2.118.360 [id number] Univers 00:00:00 00:00:00 Danitza CABELLO 350.1.13.10 ity of [facility] 4.2.7.2.[place] [id number] Nv dicut NAL 059 [facility] 2022-04-06 2022-04-06 Outpatient R PIPES, [facility] [id number] Univers 11:00:00 11:00:00 [facility] 2022-03-23 2022-03-23 Orders Doctor BANKS 1.2.840.114 [id number] Univers 00:00:00 00:00:00 Only Unassigned, LEO 350.1.13.10 ity of [place] [facility] 4.2.7.2.686 Mau as [id number] [address] 2022-03-17 2022-03-17 Telephone [facility] 1.2.503.577 [id number] Univers 00:00:00 00:00:00 Danitza CABELLO 350.1.13.10 ity of [place] [id number] Nv tania YUNG 059 [facility] 2022-03-12 2022-03-12 Outpatient R WAYLON, [facility] [id number] Univers 14:50:14 23:59:00 YAYOGUS nayeli o [facility] 2022-03-12 2022-03-12 Outpatient R WAYLON, [facility] [id number] Univers 15:00:00 15:00:00 DANITZA tyler o [facility] 2022-03-12 2022-03-12 Outpatient R WAYLON [facility] [id number] Univers 15:00:00 15:00:00 YAYOGUS nayeli o [facility] 2022-03-12 2022-03-12 Imm/Inj Nurse, Mitul Bush [facility] 1.2.840.114 [id number] Univers 09:20:00 09:40:00 Visit Nahomi Crespo S HEALTH 350.1.13.10 ity of [facility] 4.2.7.2.686 Mau as [place] [id number] Nv tania BONILLA 044 [facility] OFFICE [facility] 2022-03-12 2022-03-12 Office [facility]ADV[facility] 1.2.840.114 [id number] Univers 08:30:00 09:00:00 Visit Albert S HEALTH 350.1.13.10 it y of [place] 4.2.7.2.686 [place]au as [place] [id number] Nv tania BONILLA 198 [facility] OFFICE [facility] 2022-03-10 2022-03-10 Outpatient R SANDEEP [facility] [id number] Univers 15:00:00 15:58:31 JANN tyler of [facility] 2022-03-10 2022-03-10 Office Sandeep [facility] 1.2.840.114 [id number] Univers 15:00:00 15:58:31 Visit Jann Swyft 350.1.13.10 it y of [place] 4.2.7.2.686 Mau as [place] [id number] Nv tania [address] MEDICAL OFFICE BUILDING 2022-03-09 2022-03-09 Laboratory Only, Adc Test [facility] 1.2.840. 114 [id number] Univers 07:30:00 07:45:00 Only Danitza Connors [place] 350.1.13.10 ity of [place] 4.2.7.2.686 [facility] [id number] [facility] [address] 2022-03-09 2022-03-09 Outpatient R [facility] [id number] Univers 07:30:00 07:30:00 ity [facility] 2022-03-09 2022-03-09 Outpatient R [facility] [id number] Univers 07:30:00 07:30:00 ity [facility] 2022-03-09 2022-03-09 Outpatient R WAYLON, [facility] [id number] Univers 07:30:00 07:30:00 DANITZA lloyd o f [facility] 2022-03-06 2022-03-06 Outpatient R TYESHA, [facility] [id number] Univers 13:50:00 13:50:00 LESLY [facility] 2022-03-04 2022-03-04 Outpatient [facility] [id number] Univers 14:30:00 15:40:13 ALICE [facility] 2022-03-04 2022-03-04 Office [facility] 1.2.840.114 [id number] Univers 14:30:00 15:40:13 Visit Alice Sam Swyft 350.1.13.10 i ty of [place] 4.2.7.2.686 [facility] [id number] [facility] [address] 2022-03-04 2022-03-04 Outpatient R [facility] [id number] Univers 14:30:00 14:30:00 ALICE ity [facility] 2022-03-04 2022-03-04 Orders Doctor DARREN 1.2.840.114 [id number] Univers 00:00:00 00:00:00 Only Unassigned, LEO 350.1.13.10 ity of [place] [facility] 4.2.7.2.686 Mau as [id number] [address] 2022-03-04 2022-03-04 Telephone [facility] 1.2.639.599 [id number] Univers 00:00:00 00:00:00 Danitza CABELLO 350.1.13.10 ity of [place] [id number] Nv dic[address] 2022-02-23 2022-02-23 Office [facility] 1.2.840.114 [id number] Univers 10:00:00 10:13:55 Visit Danitza CABELLO 350.1.13.10 ity of [place] [id number] Nv dic[address] 2022-02-23 2022-02-23 Outpatient [facility], [facility] [id number] Univers 10:00:00 10:13:55 YAYOGUS gabinoy o [facility] 2022-02-23 2022-02-23 Outpatient [facility], [facility] [id number] Univers 10:00:00 10:13:55 DANITZA tyler o [facility] 2022-02-23 2022-02-23 Outpatient R WAYLON, [facility] [id number] Univers 10:00:00 10:00:00 DANITZA tyler o [facility] 2022-02-21 2022-02-21 Emergency X ROHIT JUARES [facility] ERT [id number] Univers 01:50:00 04:03:00 ROHIT JUARES [facility] 2022-02-21 2022-02-21 Emergency NereydaADV[facility] 1.2.014.496 [id number] Univers 01:50:00 04:03:00 Rohit CABELLO 350.1.13.10 i ty of [place] 4.[place].2.[place] [id number] [place] [address] 2022-02-21 2022-02-21 Emergency X ROHIT JUARES [facility] ERT 1 [id number] Univers 01:50:00 04:03:00 ROHIT JUARES [facility] 2022-02-21 2022-02-21 Emergency X ROHIT JUARES [facility] ERT 1 [id number] Univers 01:50:00 04:03:00 ROHIT JUARES [facility] 2022-01-22 2022-01-22 Telephone HomerADV[facility] 1.2.063.374 [id number] Univers 00:00:00 00:00:00 Jolanta CABELLO 350.1.13.10 ity of [place]2.[place].[address] [address] [facility] [id number] Nv dical [facility] 059 [facility] 2022-01-04 2022-01-04 Domestic Helper Draw, Clc-Bls Lab [facility] 1.2.8 40.114 [id number] Univers 14:45:00 15:00:00 Visit Pipes, Chemayi 350.1.13.10 ity of [place] [id number] [facility] [address] OFFICE BUILDING 2022-01-04 2022-01-04 Outpatient R PIPES, [facility] [id number] Univers 14:45:00 14:45:00 LEANNE ity [facility] 2022-01-04 2022-01-04 Office Pipes, [facility] 1.2.840.114 [id number] Univers 13:30:00 14:00:00 Visit Chemayi 350.1.13.10 it y of [place] [id number] [place] [address] [place] OFFICE BUILDING 2022-01-04 2022-01-04 Outpatient R PIPES, [facility] [id number] Univers 13:30:00 13:30:00 LEANNE ity [facility] 2022-01-01 2022-01-01 Emergency X MICHAEL [facility] ERT [id number] Univers 13:41:00 16:08:00 SHEYLA ity of [facility] 2022-01-01 2022-01-[address] [facility] 1.2.169.530 [id number] Univers 13:41:00 16:08:00 Sheyla Sara IRINEO 350.1.13.10 ity of [place] [id number] [address] 2022-01-01 2022-01-01 Emergency X [facility] ERT [id number] Univers 13:41:00 16:08:00 SHEYLA ity of [facility] 2022-01-01 2022-01-01 [facility] 1.2.150.873 [id number] Univers 00:00:00 00:00:00 Danitza CABELLO 350.1.13.10 ity of [place] [id number] Me dical NAL 059 [facility] 2022-01-01 2022-01-01 Case [facility]ADV[facility] 1.2.840.114 [id number] Univers 00:00:00 00:00:00 Management Jolanta CABELLO 350.1.13.10 ity of [place] 4[place] [id number] Me dical NAL 059 [facility] 2021-12-29 2021-12-29 Emergency [facility] [id number] [facility] 13:32:00 21:02:00 Elizabeth 88 [facility] are [facility] 2021-12-29 2021-12-29 Emergency [facility] [id number] [facility] 13:32:00 21:02:00 Elizabeth [id number] [facility] 2021-12-28 2021-12-28 Ancillary Shahnaz Ramos [facility] 1.2.84 0.114 [id number] Univers 14:30:00 15:15:00 Visit Karli Tuttle 350.1.13.10 ity of [place] [id number] Me dical NAL 179 [facility] 2021-12-28 2021-12-28 Outpatient R MARRY [facility] [id number] Univers 14:30:00 14:30:00 KARIL tyler [facility] 2021-12-26 2021-12-26 Emergency X DELL [facility] ERT [id number] Univers 16:19:00 19:13:00 TRAVIS tyler [facility] 2021-12-26 2021-12-26 Emergency DellAD[facility] 1.2.285.656 [id number] Univers 16:19:00 19:13:00 Travis Solomon IRINEO 350.1.13.10 it[place] of [place] [id number] [address] 2021-12-23 2021-12-23 Ancillary Shahnaz Ramos [facility] 1.2.84 0.114 [id number] Univers 11:00:00 11:40:19 Visit Karli Tuttle 350.1.13.10 ity of [place] [id number] Nv dical NAL 179 [facility] 2021-12-23 2021-12-23 Outpatient R MARRY [facility] [id number] Univers 11:00:00 11:40:19 KARLI tyler [facility] 2021-12-21 2021-12-21 Ancillary Shahnaz Ramos [facility] 1.2.84 0.114 [id number] Univers 11:00:00 11:40:13 Visit Karli Tuttle 350.1.13.10 ity of [place] [id number] Nv dical NAL [address] [place] [address] 2021-12-13 2021-12-13 Emergency X VIKRAMADV[facility] ERT [id number] Univers 11:06:00 12:07:00 ABIGAIL it y [facility] 2021-12-13 2021-12-13 Emergency Sandy LakeADV[facility] 1.2.555.163 [id number] Univers 11:06:00 12:07:00 Abigail CABELLO 350.1.13.10 ity of [facility] 4.2.7.2.[place] [id number] [place] [address] 2021-12-08 2021-12-08 Outpatient R MARRY [facility] [id number] Univers 15:15:00 16:25:41 KARLI ity [facility] 2021-12-08 2021-12-08 Ancillary Shahnaz Ramos [facility] 1.2.84 0.114 [id number] Univers 15:15:00 16:25:41 Visit Karli Tuttle IRINEO 350.1.13.10 ity of [place].2.686 [place] [facility] [id number] Nv dical [facility] [address] BUILDING 2021-12-08 2021-12-08 Outpatient [facility] [id number] Univers 15:15:00 [facility]:25:[facility] 2021-11-25 2021-11-25 Office Pip, [facility] 1.2.840.114 [id number] Univers 13:00:00 13:30:00 Visit [facility] 350.1.13.10 it y [place] [id number] [address] OFFICE BUILDING 2021-11-25 2021-11-25 Outpatient R PIP, [facility] [id number] Univers 13:00:00 13:00:00 [facility] 2021-11-25 2021-11-25 Outpatient R PIPES, [facility] [id number] Univers 13:00:00 13:00:00 [facility] 2021-11-19 2021-11-19 Emergency X [facility]IERAD[facility] ERT [id number] Univers 07:57:00 11:43:00 ALEXANDRA [facility] 2021-11-19 2021-11-19 Emergency JavierADVANC[facility] [id number] Univers 07:57:00 11:43:00 Alexandra CABELLO 350.1.13.10 i ty [facility] [place] [phone] [facility] [address] 2021-11-19 2021-11-19 Emergency X JAVIER, [facility] ERT [id number] Univers 07:57:00 11:43:00 ALEXANDRA lloyddick [facility] 2021-10-02 2021-10-02 Outpatient R TUTTLE [facility] [id number] Univers 15:15:00 15:15:00 KARLI gabinodick [facility] 2021-10-02 2021-10-02 [facility] [id number] Univers 15:15:00 15:15:00 KARLI [facility] 2021-09-29 2021-09-29 Ancillary Randa Shelton [facility] 1.2.840 .114 [id number] Univers 09:30:00 10:30:00 Visit Karli Tuttle 350.1.13.10 [place] [place] [address] [facility] [facility] [phone] N[place] dical NAL [address] BUILDING 2021-09-24 2021-09-24 Orders Doctor DARREN 1.2.840.114 [id number] Univers 00:00:00 00:00:00 Only Unassigned, LOE 350.1.13.10 ity of [facility] 4.2.7.2.686 [place] [phone] [facility] [address] 2021-09-21 2021-09-21 Office Pip, [facility] 1.2.840.114 [id number] Univers 10:30:00 11:00:00 Visit [facility] 350.1.13.10 [place] [phone] [facility] [address] OFFICE BUILDING 2021-09-21 2021-09-21 Outpatient R HAMLTE, [facility] [id number] Univers 10:30:00 10:30:00 [facility] 2021-09-15 2021-09-15 Outpatient R HAMLET, [facility] [id number] Univers 13:04:54 23:59:00 [facility] 2021-09-15 2021-09-15 Hospital Pipes, [facility] 1.2.840.114 [id number] Univers 13:04:54 23:59:00 Encounter Leanne CABELLO 350.1.13.10 ity [facility] [place].2.[place] [id number] [facility] [address] 2021-09-15 2021-09-15 [facility] [id number] Univers 09:15:00 11:45:08 KARLI ity [facility] 2021-09-15 2021-09-15 Ancillary Nichole Hassan [facility] 1.2.840. 114 [id number] Univers 09:15:00 11:45:08 Visit Karli Tuttle 350.1.13.10 ity [facility] 4.2.7.2.686 [facility] [id number] Nv dical [facility] [address] BUILDING 2021-09-15 2021-09-15 Outpatient [facility] [id number] Univers 08:45:00 08:45:00 [facility] 2021-09-08 2021-09-08 Office Pipes, [facility] 1.2.840.114 [id number] Univers 15:30:00 16:13:09 Visit [facility] 350.1.13.10 it y of [place] 4.2.7.2.686 [facility] [place] [id number] [facility] [address] [place] OFFICE BUILDING 2021-09-08 2021-09-08 Outpatient R PIPES, [facility] [id number] Univers 15:30:00 16:13:09 [facility] 2021-09-08 2021-09-08 Outpatient R PIPES, [facility] [id number] Univers 15:30:00 16:13:09 [facility] 2021-09-08 2021-09-08 Outpatient R PIPES, [facility] [id number] Univers 15:30:00 15:30:00 [facility] 2021-09-08 2021-09-08 Outpatient R PIPES, [facility] [id number] Univers 11:30:00 11:30:00 LEANNE [id number] ity of [facility] 2021-08-31 2021-08-31 Outpatient R NAHOMI CRESPO [facility] [id number] Univers 13:00:00 17:05:09 ity of [facility] 2021-08-31 2021-08-31 [facility] 1.2.840.114 [id number] Univers 13:00:00 17:05:09 Visit [facility] 350.1.13.10 it y of FAMILY 4.2.7.2.686 [facility] [id number] Med ical [place] 044 [facility] 2021-08-31 2021-08-31 Outpatient R NAHOMI CRESPO [facility] [id number] Univers 13:00:00 17:05:09 ity [facility] 2021-08-29 2021-08-29 Emergency X Zan JACINTO [facility] ERT [id number] Univers 19:28:00 23:57:00 ity [facility] 2021-08-29 2021-08-29 Emergency Zan Jacinto [facility] 1.2.840.114 [id number] Univers 19:28:00 23:57:00 Hannah CABELLO 350.1.13.10 i ty of [place] 4.2.7.2.686 [facility] [id number] [place] [address] [place] 2021-08-29 2021-08-29 Emergency X Zan JACINTO [facility] ERT [id number] Univers 19:28:00 23:57:00 ity of [facility] 2021-08-29 2021-08-29 Emergency X Zan JACINTO [facility] ERT [id number] Univers 19:28:00 23:57:00 ity [facility] 2021-08-15 2021-08-15 Emergency Parveen HERRERA [facility] ERT [id number] Univers 07:01:00 08:35:00 ALEXANDRA ity [facility] 2021-08-15 2021-08-15 Emergency Javier [facility] 1.2.161.965 [id number] Univers 07:01:00 08:35:00 Alexandra CABELLO 350.1.13.10 i ty of [place] 4.2.7.2.686 [facility] [id number] [facility] [address] 2021-08-15 2021-08-15 Orders Doctor DARREN 1.2.840.114 [id number] Univers 00:00:00 00:00:00 Only Unassigned, LEO 350.1.13.10 [place] [facility] 4.2.7.2.686 Mau [phone] [facility] [address] 2021-07-28 2021-07-28 Outpatient R HAMLET [facility] [id number] Univers 14:00:00 14:00:00 LEANNE [facility] 2021-07-08 2021-07-09 Emergency X CHUCK [facility] ERT [id number] Univers 23:37:00 03:02:00 [facility] 2021-07-08 2021-07-09 Emergency Chuck [facility] 1.2.523.861 [id number] Univers 23:37:00 03:02:00 Debo CABELLO 350.1.13.10 i ty [facility] 4.2.7.2.686 [facility] [id number] [place] [address] Branch 2021-06-07 2021 Inpatient RIVKA Earnestine [facility] [id number] [facility] 14:31:00 14:58:00 Bryant Stark [facility] 2021-06-01 2021-06-01 Outpatient R NAHOMI CRESPO [facility] [id number] Univers 10:00:00 10:00:00 ity [facility] 2021-06-01 2021-06-01 Outpatient R NAHOMI CRESPO [facility] [id number] Univers 10:00:00 10:00:00 ity [facility] 2021-05-24 2021-05-25 Emergency X VALENTIN WACINDY ERT [id number] Univers 21:13:00 03:13:00 CIERRA [facility] 2021-05-24 2021-05-25 Emergency Valentin [facility] [id number] Univers 21:13:00 03:13:00 Cierra REDMONDTON 350.1.13.10 ity [facility] 4.2.7.2.[place] [phone] [facility] [address] 2021-05-24 2021-05-24 Orders Doctor DARREN 1.2.840.114 [id number] Univers 00:00:00 00:00:00 Only Unassigned, LEO 350.1.13.10 ity of [place] [facility] 4.2.7.2.686 Mau as [phone] [facility] [address] 2021-05-04 2021-05-06 Inpatient [facility] MEDI.01 BP00 [id number] [facility] 09:55:00 09:55:00 , Giuliano 03 [facility] 2021-05-01 2021-05-01 Telephone Pipes, [facility] 1.2.323.438 [id number] Univers 00:00:00 00:00:00 [facility] 350.1.13.10 it y of [place].2.[place] [id number] [facility] [address] OFFICE BUILDING 2021-04-30 2021-04-30 Outpatient [facility] 3DAY [id number] [id number] [facility] 00:00:00 23:59:00 , Giuliano 77 [facility] 2021-04-30 2021-04-30 Outpatient Nirmal [facility] [id number] Univers 13:15:00 13:56:37 JANNETH tyler [facility] 2021-04-30 2021-04-30 Office [facility] 1.2.776.759 [id number] Univers 13:07:45 13:56:37 Visit Janneth CABELLO 350.1.13.10 i ty [facility] 4.2.7.2.686 [place] [id number] [facility] [address] BUILDING 2021-04-30 2021-04-30 Outpatient [facility] [id number] Univers 13:15:00 13:15:00 JANNETH tyler [facility] 2021-04-27 2021-04-27 Office [facility] 1.2.840.114 [id number] Univers 13:06:36 13:36:36 Visit Leanne HEALTH 350.1.13.10 it y of [place] 4.2.7.2.686 [place] [id number] [facility] [address] OFFICE BUILDING 2021-04-27 2021-04-27 Outpatient Nirmal MCNULTY [facility] [id number] Univers 13:00:00 13:00:00 LEANNE ity of [facility] 2021-04-24 2021-04-24 [facility] Carlos Alberto [facility] 1.2.840.114 [id number] Univers 14:07:05 23:59:00 Encounter Coretta Y HEALTH 350.1.13.10 ity of CL[place]ICS 4.2.7.2.[place] [id number] [facility] [address] 2021-04-24 2021-04-24 Outpatient R CARLOS [facility] [id number] Univers 14:06:52 14:06:52 CORETTA ity of [facility] 2021-04-24 2021-04-24 [facility] 1.2.840.114 [id number] Univers 14:06:52 14:06:52 Encounter Coretta Y HEALTH 350.1.13.10 ity of CLINICS 4.2.7.2.[place] [id number] [facility] [address] 2021-04-15 2021-04-15 Emergency X [facility] ERT [id number] Univers 12:57:00 16:07:00 ALEXANDRA tyler of [facility] 2021-04-15 2021-04-15 Emergency [facility] 1.2.206.226 [id number] Univers 12:57:00 16:07:00 Alexandra CABELLO 350.1.13.10 i ty of [place] 4.2.7.2.686 [place] [id number] [facility] [address] 2021-04-15 2021-04-15 Telephone Meli Banks [facility] 1.2.840.114 [id number] Univers 00:00:00 00:00:00 Alvares HEALTH 350.1.13.10 it y of [place] 4.2.7.2.686 [place] [id number] Med ical [place] 044 [facility] 2021-04-15 2021-04-15 Telephone Meli Banks [facility] 1.2.840.114 [id number] Univers 00:00:00 00:00:00 Alvares HEALTH 350.1.13.10 it y of [place].2.[place].2.[place] [id number] Med ical [place] [address] [place] [address] 2021-04-14 2021-04-14 Office Meli Banks [facility] 1.2.840.114 [id number] Univers 10:38:18 11:08:18 Visit Alvares HEALTH 350.1.13.10 it y of [place] 4.2.7.2.[place] [id number] Med ical [place] [address] [place] [address] 2021-04-14 2021-04-14 Outpatient R DARREN MELI [facility] [id number] Univers 11:00:00 11:00:00 [facility] 2021-04-14 2021-04-14 Outpatient R MELI BANKS [facility] [id number] Univers 11:00:00 11:00:00 [facility] 2021-04-09 2021-04-09 Outpatient Nirmal VILLATORO [facility] [id number] Univers 09:00:00 09:00:00 JANNETH [facility] 2021-04-01 2021-04-01 Outpatient NAHOMI ARELLANO [facility] [id number] Univers 13:30:00 13:30:00 [facility] 2021-03-22 2021-03-23 Emergency X CHUCK [facility] ERT [id number] Univers 21:39:00 01:59:00 [facility] 2021-03-22 2021-03-23 Emergency [facility] ERT [id number] Univers 21:39:00 01:59:00 [facility] 2021-03-22 2021-03-23 Emergency X [facility] ERT [id number] Univers 21:39:00 01:59:00 [facility] 2021-03-22 2021-03-23 Emergency WoodsAD[facility] 1.2.904.652 [id number] Univers 21:39:00 01:59:00 Debo S Irineo 350.1.13.10 i ty of [place].2.[place] [id number] [facility] [address] [place] 2021-03-22 2021-03-22 Orders Doctor DARREN 1.2.840.114 [id number] Univers 00:00:00 00:00:00 Only Unassigned, LEO 350.1.13.10 ity of [place] [facility] 4.2.7.2.686 [place]au as [id number] [facility] [address] 2021-03-17 2021-03-17 Urgent Carlos Alber[facility]AD[facility] 1.2.840.114 [id number] Univers 20:34:07 20:52:59 Care [facility] 350.1.13.10 it y of [place] 4.2.7.2.686 [place]au as [place]lea [phone] Nv dicberenice [facility] [address] Medical Office Building 2021-03-17 2021-03-17 Outpatient R CARLOS ALBERTO [facility] [id number] Univers 20:40:00 20:40:00 [facility] 2021-03-02 2021-03-02 Outpatient R HAMLET [facility] [id number] Univers 16:30:00 16:30:00 LEANNE [facility] 2021-03-02 2021-03-02 Office Nahomi Crespo [facility] 1.2.840.114 [id number] Univers 15:14:52 15:54:52 Visit [facility] 350.1.13.10 it y of [place].2.[place] [id number] Med ical [place] [address] CLINIC 2021-03-02 2021-03-02 Office Hamlet [facility] 1.2.840.114 [id number] Univers 13:18:08 13:48:08 Visit [facility] 350.1.13.10 it y of [place].2.[place].2.686 [place] [id number] [facility] [address] Office Building 2021-02-11 2021-02-11 Outpatient [facility] [id number] Univers 13:00:00 13:00:00 SENDIL [facility] 2021-02-09 2021-02-10 Emergency Her[facility]ADVANC[facility] 1.2.329.718 [id number] Univers 19:31:00 01:06:00 Alexandra Cabello 350.1.13.10 i ty [facility] 4.2.7.2.686 [facility] [id number] [facility] [address] 2021-02-05 2021-02-05 Outpatient [facility] [id number] Univers 11:00:00 11:00:00 [facility] 2021-01-29 2021-01-29 Outpatient [facility] [id number] Univers 10:15:00 11:14:29 [facility] 2021-01-29 2021-01-29 Outpatient [facility] [id number] Univers 10:15:00 11:14:29 [facility] 2021-01-23 2021-01-23 Outpatient [facility] [id number] Univers 09:00:00 09:00:00 [facility] 2021-01-23 2021-01-23 Outpatient [facility] [id number] Univers 09:00:00 09:00:00 [facility] 2021-01-20 2021-01-20 Outpatient Nirmal CARCAMO [facility] [id number] Univers 11:00:00 11:00:00 CORETTA [facility] 2021-01-19 2021-01-19 Out[facility] [id number] Univers 13:30:00 13:30:00 [facility] 2021-01-15 2021-01-15 Outpatient R [facility] [id number] Univers 10:15:00 10:15:00 [facility] 2021-01-06 2021-01-06 Outpatient [facility] [id number] Univers 10:15:00 10:15:00 [facility] 2020-12-30 2020-12-30 Outpatient R MARRY [facility] [id number] Univers 09:00:00 09:00:00 KARLI dick [facility] 2020-12-23 2020-12-23 Outpatient R PALLAVI COMER [facility] [id number] Univers 09:45:00 09:45:00 [facility] 2020-12-11 2020-12-11 Outpatient R MARRY [facility] [id number] Univers 15:45:00 15:45:00 [facility] 2020-12-11 2020-12-11 Outpatient R MARRY [facility] [id number] Univers 15:00:00 15:00:00 [facility] 2020-12-10 2020-12-10 Outpatient R HIEU [facility] [id number] Univers 12:20:00 12:20:00 [facility] 2020-12-10 2020-12-10 Outpatient R HIEU [facility] [id number] Univers 12:20:00 11:53:33 [facility] 2020-12-09 2020-12-09 Outpatient R TUTTLE, [facility] [id number] Univers 14:45:00 14:45:00 [facility] 2020-12-05 2020-12-05 Outpatient R HAMLET [facility] [id number] Univers 00:00:00 00:00:00 [facility] 2020-12-04 2020-12-04 Outpatient R MARRY [facility] [id number] Univers 10:00:00 13:56:58 [facility] 2020-12-04 2020-12-04 Outpatient R MARRY [facility] [id number] Univers 10:00:00 10:00:00 [facility] 2020-12-01 2020-12-01 Outpatient R NAHOMI CRESPO [facility] [id number] Univers 09:30:00 09:30:00 [facility] 2020-11-24 2020-11-24 Outpatient R HAMLET [facility] [id number] Univers 11:30:00 11:30:00 [facility] 2020-11-24 2020-11-24 Outpatient R HAMLET [facility] [id number] Univers 11:00:00 11:00:00 [facility] 2020-11-20 2020-11-20 Outpatient [facility] [id number] Univers 14:30:00 16:02:40 [facility] 2020-11-20 2020-11-20 Outpatient R [facility] [id number] Univers 14:30:00 14:30:00 [facility] 2020-11-19 2020-11-19 Outpatient R HIEU [facility] [id number] Univers 12:20:00 12:21:37 [facility] 2020-11-19 2020-11-19 Outpatient [facility] [id number] Univers 12:20:00 12:20:00 [facility] 2020-11-19 2020-11-19 Outpatient R [facility] [id number] Univers 10:40:00 10:40:00 [facility] 2020-11-06 2020-11-06 Outpatient [facility] [id number] Univers 13:00:00 13:00:00 [facility] 2020-10-29 2020-10-29 Inpatient HCACR [facility] [id number] [facility] 21:50:40 21:50:40 00 [facility] 2020-10-28 2020-10-28 Orders Doctor BANKS 1.2.840.114 [id number] 00:00:00 00:00:00 Only Unassigned, LEO 350.1.13.10 [place] [facility] 4.2.7.2.686 [id number] 2020-10-27 2020-10-27 Inpatient HCAPM HCAPM [id number] [facility] 22:18:01 22:18:01 40 [facility] 2020-10-21 2020-10-21 Outpatient R PALLAVI COMER [facility] [id number] Univers 14:00:00 14:00:00 ity [facility] 2020-10-21 2020-10-21 Outpatient R NAHOMI PALLAVI [facility] [id number] Univers 09:45:00 09:45:00 ity [facility] 2020-10-20 2020-10-20 Outpatient R NAHOMI CRESPO [facility] [id number] Univers 13:30:00 13:30:00 ity [facility] 2020-10-20 2020-10-20 Telephone Cherie [facility] 1.2.840.114 [id number] 00:00:00 00:00:00 S HEALTH 350.1.13.10 FAMILY 4.2.7.2.686 MEDICINE [id number] [place] 044 CLINIC 2020-10-14 2020-10-14 Emergency [facility] [id number] Univers 10:11:00 13:36:00 MIKE [facility] 2020-09-29 2020-09-29 Outpatient R CHERIE NAHOMI [facility] [id number] Univers 14:30:00 14:30:00 [facility] 2020-09-23 2020-09-23 Out[facility] [id number] Univers 11:00:00 11:00:00 LEANNE [facility] 2020-09-17 2020-09-17 Outpatient [facility] [id number] Univers 08:30:00 08:30:00 [facility] 2020-09-13 2020-09-13 Ani KelleyADV[facility] 1.2.840.114 [id number] Univers 00:00:00 00:00:00 January PRIMARY 350.1.13.10 it y of CARE 4.2.7.2.686 Kristie LIMA [id number] [address] 2020-09-04 2020-09-12 [facility] [id number] Univers 13:37:00 15:16:00 [facility] 2020-09-11 2020-09-11 Outpatient R NAHOMI CRESPO [facility] [id number] Univers 11:30:00 11:30:00 [facility] 2020-08-26 2020-08-29 Inpatient X JEANNIE MORAES, [facility] MPU [id number] Univers 23:57:00 16:50:00 ALISA [facility] 2020-08-14 2020-08-14 Outpatient R CHERIE NAHOMI [facility] [id number] Univers 11:00:00 11:33:22 ity [facility] 2020-08-14 2020-08-14 Outpatient R CHERIE [facility] [id number] Univers 11:00:00 11:00:00 [facility] 2020-07-15 2020-07-15 Outpatient R CHERIE [facility] [id number] Univers 08:30:00 08:30:00 [facility] 2020-07-12 2020-07-12 Emergency X HERRERA, [facility] ERT [id number] Univers 14:02:00 18:26:00 ALEXANDRA [facility] 2020-07-15 2020-06-25 Inpatient [facility] DAYS [id number] [id number] [facility] 09:00:00 16:57:22 , Giuliano 22 [facility] are [facility] 2020-05-02 2020-05-07 Inpatient [facility] ENDO [id number] [facility] 13:00:00 23:36:24 , Giuliano 99 [facility] are [facility] 2020-04-17 2020-04-17 Outpatient Nirmal CUEVAS [facility] [id number] Univers 08:30:00 08:30:00 [facility] 2019-12-14 2019-12-14 Outpatient Nirmal UREÑA [facility] [id number] Univers 07:40:00 07:40:00 ANJU [facility] 2019-09-10 2019-09-10 Outpatient Nirmal CUEVAS [facility] [id number] Univers 14:30:00 14:30:00 ALBERT [facility] 2019-07-27 2019-07-27 Outpatient Nirmal GODWIN [facility] [id number] Univers 16:18:21 23:59:00 TAVARESAIR tyler [facility] 2019-05-04 2019-05-04 Outpatient R VALENTIN [facility] [id number] Univers 00:55:57 00:55:57 CIERRA tyler [facility] 2018-09-27 2018-09-[address] [facility] [id number] Memoria 12:11:00 04:59:00 Surgery r [place] 00 l [facility] 2018-09-27 2018-09-27 Outpatient [facility] JUANA [id number] [facility] 07:11:00 07:11:00 2018-09-05 2018-09-05 RADHA Shultz UTP [id number] [place] 12:45:00 12:45:00 t; PHILL MORAES NP P hysici CONNIE, NP ans 2018-08-04 2018-08-04 RADHA Harmon [id number] [place] 10:00:00 10:00:00 t; KUSHAL GREENBERG M.D. Surgery Physic Samaria FATIMA Specialty ans 2018-06-13 2018-06-[address] [facility] [id number] Memoria 10:15:00 20:49:00 r [place] [address] [facility] 2018 2018 Appointtyson [facility] UTP [id number] [place] 09:45:00 09:45:00 t; DEUCE Jacobson, Sarah SU RD ans INDEUCE RD 2018-05-09 2018-05-09 AppointRADHA [place] [id number] [place] 13:45:00 13:45:00 t; PHILL MORAES NP Surgery P mari POLLOCK NP Specialty ans 2018-05-02 2018-05-02 RADHA Shultz UTP [id number] [place] 13:00:00 13:00:00 t; PHILL MORAES NP P hysici CONNIE, NP ans 2018-04-06 2018-04-06 RADHA Shultz UTP [id number] [place] 12:00:00 12:00:00 t; PHILL MORAES NP P hysici CONNIE, NP ans 2018-02-21 2018-02-21 RADHA Shultz [place] [id number] [place] 13:30:00 13:30:00 t; PHILL MORAES, PHI Surgery P mari POLLOCK, PHI Specialty ans 2018-01-17 2018-01-17 Appointmen ALEISHA RADHA Josee [id number] [place] 15:00:00 15:00:00 t; PHILL MORAES, PHI Surgery P mari POLLOCK NP Specialty ans 2018-01-06 2018-01-06 Appointtyson [facility] UTP [id number] [place] 10:30:00 10:30:00 t; N, DEUCE, Phys ici GEORGES RD ans INDEUCE, RD 2017-12-16 2017-12-16 Appointmen RADHA GREENBERG Josee [id number] [place] 09:15:00 09:15:00 t; KUSHAL GREENBERG M.D. Surgery Nai FATIMA M.D. Specialty ans Results Test Description Test Time Test Comments Results Result Comments Source POCT CREATININE 2022-05-19 03:15:54 Test Item Value Reference Range Interpretation Comme [facility] POCT Creatinine (test code = [id number]) 0.6 mg/dL 0.5-1.1 Lab Interpretation (test code = 64286-6) Normal [facility] ABD PELVIS [id number] 18:31:00 [facility] : 1975 Sex: FPatient Name: GIOVANNY CALDERÓN Unit No: [id number] EXAMS: CPT CODE: [id number] CT ABD PELVISW/CONT 84711 Location of dictation: B2 CT of the abdomen and pelvis with intravenous contrast History:Pain Contrast -100 mL of Isovue-300 IV contrast was given. Oral contrast was given Contrast phase - abdomen and pelvis including all of kidneys Reconstructions - coronal and sagittal planes Automatedexposure reduction (Auto mA/Smart mA) was utilized in compliance with ACR Image Wisely with DLP of 574.5 mGy-cm. COMPARISON: 06/07/2021 FINDINGS: Thoracic: Bibasilar atelectasis. Hepatobiliary: Enlarged fatty liver with no discrete liver mass. The gallbladder is surgically absent. The spleen and pancreas are unremarkable Adrenals: Normal. Genitourinary: The kidneys are normal. There is no evidence of hydronephrosis of either kidney. There is no evidence of renal calculus. The bladder is intact. Gastrointestinal: Patient is status post sleeve gastrectomy Contrast outlines nonobstructed bowel. Multiple colonic diverticuli again noted. No inflammatory changes, free fluid or free air seen. The appendix is present and appears normal. There are no bowel-containing hernias. Retroperitoneum and pelvis: Normal aorta and IVC. Uterus removed with no pelvic mass or fluid collection. 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 IMPRESSION: 1. Comparison made to 2021. 2. No acute findings or changes in the abdomen or pelvis. 3. Colonic diverticulosis without diverticulitis. 4. Status post sleeve gastrectomy without obstruction or perforation. 5. Enlarged fatty liver. at 1831 Reported and signed by: Agueda Loving M.D. Name:GIOVANNY CALDERÓN [facility] Phys: [email or web address] - Elizabeth Shelton MD [id number] : Age: 46 Sex: [place] [address] Loc: P.ERS Exam Date: 12/29/2021 Status: REG ER PH: FAX: PAGE 1 Signed Report (CONTINUED) Patient Name: GIOVANNY CALDERÓN Unit No: [id number] EXAMS: CPT CODE: [id number] CT ABD PELVIS W/CONT 28051 (Continued) CC: Elizabeth Shelton MD Techn ologist: Odalys Lubin CTDI: 9.64 DLP: 574 Trscr Dt/Tm: 12/29/2021 (1830) by:Kael Printed Date/Time: 12/29/2021 (4824) Name: GIOVANNY CALDERÓN [facility] Phys: Elizabeth LeonardMA [address] : 1975 Age: 46 Sex: [place] [address] Loc: BRANDIEExsteve Date: 12/29/2021 Status: REG ER PH: FAX: PAGE 2 Signed ReportUA RFLX MICR CULT IF [id number] 15:12:00 Test Item Value Reference Range Interpretation Comments UA COLOR (test code = COLU) YELLOW DISCRIPT YELLOW UA APPEARANCE (test code = CLEAR DISCRIPT CLEAR APPU) UA GLUCOSE DIPSTICK (test NEGATIVE mg/dL NEGATIVE code = DGLUU) UA BILIRUBIN DIPSTICK (test NEGATIVE NEGATIVE code = BILU) UA KETONE DIPSTICK (test code NEGATIVE mg/dL NEGATIVE = KETU) UA SPECIFIC GRAVITY (test <=1.005 1.005-1.030 A code = SGU) UA BLOOD DIPSTICK (test code NEGATIVE NEGATIVE = LISA) UA PH DIPSTICK (test code = 7.0 5.0-9.0 FLAVIO) UA PROTEIN DIPSTICK (test NEGATIVE mg/dL NEGATIVE code = PROU) UA UROBILINOGEN DIPSTICK 0.2 mg/dL 0.2-1.0 (test code = URO) UA NITRITE DIPSTICK (test NEGATIVE NEGATIVE code = KYLE) UA LEUKOCYTE ESTERASE TRACE NEGATIVE A DIPSTICK (test code = LEUU) UA WBC (test code = WBCU) 3-5 #WBC/HPF 0-2 A UA RBC (test code = RBCU) 0-2 #RBC/HPF 0-2 UA BACTERIA (test code = 1+ /HPF NONE-TRACE A BACU) UA SQUAMOUS CELLS (test code 1+ /LPF NONE-TRACE A = SQU) Indication for culture: Flank PainUR HCG [id number] 15:12:00 Test Item Value Reference Range Interpretation Comments UR HCG QUAL (test code = HCGQLU) NEGATIVE NEGATIVE Indication for culture: Flank PainCOMPREHENSIVE METABOLIC [id number] 15:10:00 Test Item Value Reference Range Interpretation Comments SODIUM (test code = 144 mmol/L 136-145 N Please n ote: New NA) Reference Range Jul 2020 POTASSIUM (test 3.5 mmol/L 3.5-5.1 N code = K) CHLORIDE (test code 110 mmol/L 98-107 H Please n ote: New = CL) Reference Range Jul 2020 CARBON DIOXIDE 29 mmol/L 20-31 N Please note: New (test code = CO2) Reference Range Jul 2020 GLUCOSE (test code 73 mg/dL 74-106 L Please no te: New = GLU) Reference Range Jul 2020 BLOOD UREA NITROGEN 10 mg/dL 9-23 N Please n ote: New (test code = BUN) Reference Range Jul 2020 GLOMERULAR >=60 max >60 Units are FILTRATION RATE estimate mL/min mL/min/1. 73m2 The (test code = GFR) estimated glomerular filtration rate is computed usingpatient ra ce, age (>18), sex, and serum creatinin e. If anyof the ne eded data elements a re missing the Laboratory danyelle ot compute an estimation of t he glomerular filtration rate . CREATININE (test 0.60 mg/dL 0.55-1.02 N Please note : New code = CREAT) Reference Rang e Jul 2020 TOTAL PROTEIN (test 6.7 g/dL 5.7-8.2 N Please n ote: New code = PROT) Reference Range Jul 2020 ALBUMIN (test code 4.0 g/dL 3.2-4.8 N Please no te: New = ALB) Reference Range Jul 2020 CALCIUM (test code 8.6 mg/dL 8.7-10.4 L Please no te: New = CA) Reference Range Jul 2020 BILIRUBIN TOTAL 0.6 mg/dL 0.3-1.2 N Please note: New (test code = BILT) Reference Range Jul 2020 SGOT/AST (test code 18 U/L <34 N Please n ote: New = AST) Reference Range Jul 2020 SGPT/ALT (test code < 7 U/L 10-49 L Please n ote: New = ALT) Reference Range Jul 2020 ALKALINE 61 U/L 46-116 N Please note: Ne w PHOSPHATASE (test Reference Range Feb code = ALKP) 2020 [id number] 15:10:00 Test Item Value Reference Range Interpretation Comments LIPASE (test code = 25 U/L 12-53 N Please n ote: New LIP) Reference Range Jul 2020 [id number] 15:10:00 Test Item Value Reference Range Interpretation Comments TROPONIN-I (test < 2.5 pg/mL 27.36-66.23 L Please note : Units and code = TROPI) Reference Rang e have changedFeb 3, 2 021 CBC W/AUTO [id number] 14:43:00 Test Item Value Reference Range Interpretation Comments WHITE BLOOD CELL (test code = 6.6 x10 3/uL 4.8-10.8 N WBC) RED BLOOD CELL (test code = 4.19 x10 6/uL 4.20-5.40 L RBC) HEMOGLOBIN (test code = HGB) 12.5 g/dL 12.0-16.0 N HEMATOCRIT (test code = HCT) 38.0 % 37.0-47.0 N MEAN CELL VOLUME (test code = 90.7 fL 81.0-99.0 N MCV) MEAN CELL HGB (test code = MCH) 29.8 pg 27-31 N MEAN CELL HGB CONCENTRATION 32.9 G/DL 33-36.5 L (test code = MCHC) RED CELL DISTRIBUTION WIDTH 13.6 % 12.9-16.9 N (test code = RDW) PLATELET COUNT (test code = 191 x10 3/uL 150-440 N PLT) MEAN PLATELET VOLUME (test code 12.0 fL 8.9-12.4 N = MPV) NEUTROPHIL % (test code = NT%) 69.7 % 42.2-75.2 N LYMPHOCYTE % (test code = LY%) 23.9 % 20.5-51.1 N MONOCYTE % (test code = MO%) 4.7 % 1.7-9.3 N EOSINOPHIL % (test code = EO%) 1.2 % 0.0-7.0 N BASOPHIL % (test code = BA%) 0.2 % 0-2.5 N NEUTROPHIL # (test code = NT#) 4.60 x10 3/uL 1.80-7.70 N LYMPHOCYTE # (test code = LY#) 1.58 x10 3/uL 1.00-4.80 N MONOCYTE # (test code = MO#) 0.31 x10 3/uL 0.00-0.80 N EOSINOPHIL # (test code = EO#) 0.08 x10 3/uL 0.00-0.45 N BASOPHIL # (test code = BA#) 0.01 x10 3/uL 0.0-0.20 N PLATELET [id number] 13:37:00 Test Item Value Reference Range Interpretation Comments PLATELET COUNT (test code = PLT) 105 x10 3/uL 150-440 L [id number] 12:21:00 Test Item Value Reference Range Interpretation Comments GLUBED (test code = GLUBED) 92 MG/DL 70-105 N [id number] 07:19:00 Test Item Value Reference Range Interpretation Comments GLUBED (test code = GLUBED) 82 MG/DL 70-105 N BASIC METABOLIC [id number] 02:12:00 Test Item Value Reference Range Interpretation Comments SODIUM (test code 142 mmol/L 136-145 N Please not e: New = NA) Reference Range Jul 2020 POTASSIUM (test 3.1 mmol/L 3.5-5.1 L code = K) CHLORIDE (test 106 mmol/L 98-107 N Please note: New code = CL) Reference Range Jul 2020 CARBON DIOXIDE 28 mmol/L 20-31 N Please note: New (test code = CO2) Reference Range Jul 2020 GLUCOSE (test code 87 mg/dL 74-106 N Please no te: New = GLU) Reference Range Jul 2020 BLOOD UREA < 5 mg/dL 9-23 L Please note: Ne w NITROGEN (test Reference Ran ge Feb code = BUN) 2020 GLOMERULAR >=60 max >60 Units are FILTRATION RATE estimate mL/min mL/min/1. 73m2 The (test code = GFR) estimated glomerular filtration rate is computed usingpatient ra ce, age (>18), sex, and serum creatinin e. If anyof the neede d data elements a re missing the Laboratory danyelle ot compute an estimation of t he glomerular filtration rate . CREATININE (test 0.40 mg/dL 0.55-1.02 L Please note : New code = CREAT) Reference Rang e Jul 2020 CALCIUM (test code 8.5 mg/dL 8.7-10.4 L Please no te: New = CA) Reference Range Jul 2020 [id number] 02:12:00 Test Item Value Reference Range Interpretation Comments MAGNESIUM (test code = 1.6 mg/dL 1.6-2.6 N Pleas e note: New MAG) Reference Range Jul 2020 RECOLLECTCBC W/AUTO [id number] 00:39:00 Test Item Value Reference Range Interpretation Comments WHITE BLOOD CELL 3.9 x10 3/uL 4.8-10.8 L (test code = WBC) RED BLOOD CELL (test 4.31 x10 6/uL 4.20-5.40 N code = RBC) HEMOGLOBIN (test code 12.6 g/dL 12.0-16.0 N = HGB) HEMATOCRIT (test code 39.4 % 37.0-47.0 N = HCT) MEAN CELL VOLUME 91.4 fL 81.0-99.0 N (test code = MCV) MEAN CELL HGB (test 29.2 pg 27-31 N code = MCH) MEAN CELL HGB 32.0 G/DL 33-36.5 L CONCENTRATION (test code = MCHC) RED CELL DISTRIBUTION 15.5 % 12.9-16.9 N WIDTH (test code = RDW) PLATELET COUNT (test 70 x10 3/uL 150-440 L code = PLT) MEAN PLATELET VOLUME Test not 8.9-12.4 THE MARSIOL LYZER WAS (test code = MPV) performed fL UNABLE TO PROVIDE A RESUL T FOR THISANALYTE . NEUTROPHIL % (test 81.1 % 42.2-75.2 H code = NT%) LYMPHOCYTE % (test 13.5 % 20.5-51.1 L code = LY%) MONOCYTE % (test code 3.8 % 1.7-9.3 N = MO%) EOSINOPHIL % (test 1.0 % 0.0-7.0 N code = EO%) BASOPHIL % (test code 0.3 % 0-2.5 N = BA%) NEUTROPHIL # (test 3.18 x10 3/uL 1.80-7.70 N code = NT#) LYMPHOCYTE # (test 0.53 x10 3/uL 1.00-4.80 L code = LY#) MONOCYTE # (test code 0.15 x10 3/uL 0.00-0.80 N = MO#) EOSINOPHIL # (test 0.04 x10 3/uL 0.00-0.45 N code = EO#) BASOPHIL # (test code 0.01 x10 3/uL 0.0-0.20 N = BA#) [id number] 20:11:00 Test Item Value Reference Range Interpretation Comments GLUBED (test code = GLUBED) 88 MG/DL 70-105 N [id number] 17:39:00 Test Item Value Reference Range Interpretation Comments GLUBED (test code = GLUBED) 64 MG/DL 70-105 L [id number] 16:16:00 Test Item Value Reference Range Interpretation Comments GLUBED (test code = GLUBED) 74 MG/DL 70-105 N [id number] 11:55:00 Test Item Value Reference Range Interpretation Comments MAGNESIUM (test code = 1.6 mg/dL 1.6-2.6 N Pleas e note: New MAG) Reference Range Jul 2020 [id number] 07:56:00 Test Item Value Reference Range Interpretation Comments GLUBED (test code = GLUBED) 75 MG/DL 70-105 N BASIC METABOLIC [id number] 05:44:00 Test Item Value Reference Range Interpretation Comments SODIUM (test code 145 mmol/L 136-145 N Please not e: New = NA) Reference Range Jul 2020 POTASSIUM (test 3.0 mmol/L 3.5-5.1 L code = K) CHLORIDE (test 107 mmol/L 98-107 N Please note: New code = CL) Reference Range Jul 2020 CARBON DIOXIDE 27 mmol/L 20-31 N Please note: New (test code = CO2) Reference Range Jul 2020 GLUCOSE (test code 78 mg/dL 74-106 N Please no te: New = GLU) Reference Range Jul 2020 BLOOD UREA 7 mg/dL 9-23 L Please note: Ne w NITROGEN (test Reference Ran ge Feb code = BUN) 2020 GLOMERULAR >=60 max >60 Units are FILTRATION RATE estimate mL/min mL/min/1. 73m2 The (test code = GFR) estimated glomerular filtration rate is computed usingpatient ra ce, age (>18), sex, and serum creatinin e. If anyof the neede d data elements a re missing the Laboratory danyelle ot compute an estimation of t he glomerular filtration rate . CREATININE (test 0.60 mg/dL 0.55-1.02 N Please note : New code = CREAT) Reference Rang e Jul 2020 CALCIUM (test code 8.1 mg/dL 8.7-10.4 L Please no te: New = CA) Reference Range Jul 2020 CBC W/AUTO [id number] 05:30:00 Test Item Value Reference Range Interpretation Comments WHITE BLOOD CELL (test code = 4.8 x10 3/uL 4.8-10.8 N WBC) RED BLOOD CELL (test code = 4.18 x10 6/uL 4.20-5.40 L RBC) HEMOGLOBIN (test code = HGB) 12.1 g/dL 12.0-16.0 HEMATOCRIT (test code = HCT) 39.0 % 37.0-47.0 N MEAN CELL VOLUME (test code = 93.3 fL 81.0-99.0 N MCV) MEAN CELL HGB (test code = MCH) 28.9 pg 27-31 N MEAN CELL HGB CONCENTRATION 31.0 G/DL 33-36.5 L (test code = MCHC) RED CELL DISTRIBUTION WIDTH 15.1 % 12.9-16.9 N (test code = RDW) PLATELET COUNT (test code = 103 x10 3/uL 150-440 L PLT) MEAN PLATELET VOLUME (test code 14.0 fL 8.9-12.4 H = MPV) NEUTROPHIL % (test code = NT%) 72.0 % 42.2-75.2 N LYMPHOCYTE % (test code = LY%) 20.2 % 20.5-51.1 L MONOCYTE % (test code = MO%) 5.8 % 1.7-9.3 N EOSINOPHIL % (test code = EO%) 1.4 % 0.0-7.0 N BASOPHIL % (test code = BA%) 0.4 % 0-2.5 N NEUTROPHIL # (test code = NT#) 3.48 x10 3/uL 1.80-7.70 N LYMPHOCYTE # (test code = LY#) 0.98 x10 3/uL 1.00-4.80 L MONOCYTE # (test code = MO#) 0.28 x10 3/uL 0.00-0.80 N EOSINOPHIL # (test code = EO#) 0.07 x10 3/uL 0.00-0.45 N BASOPHIL # (test code = BA#) 0.02 x10 3/uL 0.0-0.20 N [id number] 21:05:00 Test Item Value Reference Range Interpretation Comments GLUBED (test code = GLUBED) 70 MG/DL 70-105 N [id number] 19:10:00 Test Item Value Reference Range Interpretation Comments GLUBED (test code = GLUBED) 70 MG/DL 70-105 N COVID 19 INHOUSE [id number] 18:26:00 Test Item Value Reference Range Interpretation Comments COVID 19 INHOUSE AG POSITIVE NEGATIVE A Critical Value reported (test code = toFirst Name:BASIL WALTONID19IHAG) Last Name:TORSTEN NAVA READ BACK AND Desi BuenoLAB.PAULINO, on 1 08/08/20, @ 1826. - CT ABD PELVIS [id number] 13:57:00 [facility] : 1975 Sex: FPatient Name: GIOVANNY CALDERÓN Unit No: [id number] EXAMS: CPT CODE: [id number] CT ABD PELVISW/CONT 01139 EXAM: CT abdomen and pelvis with contrast Dictation location: A1 INDICATION: Abdominal pain, gastric sleeve 05/03 COMPARISON: None TECHNIQUE: Axial images of the abdomen and pelvis were obtained with 100 mL Isovue-370 IV contrast and with oral contrast. Coronal and sagittal reformatted images were performed. DISCUSSION: Lower thorax: Linear atelectasis or scarring is seen in the lingula.Enteric contrast is seen within the lower esophagus. Hepatobiliary: Unremarkable. No biliary ductal dilatation. Gallbladder: Surgically absent. Spleen: Unremarkable. Pancreas: Unremarkable. Kidneys: Unremarkable. Adrenals: Unremarkable. Lymph nodes: No lymphadenopathy. Peritoneum/retroperitoneum: No in traabdominal free air or free fluid. Vessels: No atherosclerotic calcification or abdominal aortic aneurysm. The splenic vein and portal vein are unremarkable. Pelvic organs/bladder: The uterus, adnexa, and bladder are unremarkable. Bowel: Mild to moderate sigmoid and descending colonic diverticulosisis seen, without diverticulitis. The appendix is normal. Sleeve gastrectomy is noted, without obvious leak. No abnormal bowel wall thickening or bowel obstruction is identified. Bones/soft tissues: Nofracture or evidence of bony neoplastic process. 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 No definite hernia is seen. IMPRESSION: 1. Normal appendix. No evidence of acute intra-abdominal abnormality. Name: GIOVANNY CALDERÓN [facility] Phys: Sabino Hurst MD [address] : 1975 Age: 45 Sex: [place] [address] Loc: P.ERS Exam Date: 06/07/2021 Status: REG ER PH: FAX: PAGE 1 Signed Report (CONTINUED) Patient Name: GIOVANNY CALDERÓN Unit No: [id number] EXAMS: CPT CODE: [id number] CT ABD PELVIS W/CONT 30592 (Continued) 2. Previous gastric sleeve. Enteric contrast within the lower esophagus suggests esophageal dysmotility, gastroesophageal reflux, or a combination of these. No leak is identified. 3. Additional findings include prior cholecystectomy and colonic diverticulosis, without diverticulitis. One or more of the following dose reduction techniques were used: Automated exposure control, adjustment of the mA and/or kV according to patient size, and/or utilization of iterative reconstruction technique. DLP: 2262 mGy-cm CTDI: 36 mGy at 1357 Reportedand signed by: Fernando Hauser M.D. CC: Sabino Mata MD; Giuliano Abdullahi MD Technologist: Rosalba Galvez CTDI: 35.78 DLP: 2261.89Trscr Dt/Tm: 06/07/2021 (1357) by:[email or web address] Printed Date/Time: 06/07/2021 (1400) Name: GIOVANNY CALDERÓN [facility] Phys: Sabino Hurst MD [address] : 1975 Age: 45 Sex: F [place] [address] Loc: P.ERS Exam Date: 06/07/2021 Status: REG ER PH: FAX: PAGE 2 Signed ReportUA RFLX MICR CULT IF [id number] 13:36:00 Test Item Value Reference Range Interpretation Comments UA COLOR (test code = DARK YELLOW DISCRIPT YELLOW COLU) UA APPEARANCE (test code CLEAR DISCRIPT CLEAR = APPU) UA GLUCOSE DIPSTICK 100 mg/dL NEGATIVE A (test code = DGLUU) UA BILIRUBIN DIPSTICK MODERATE NEGATIVE A (test code = BILU) UA KETONE DIPSTICK (test >=80 mg/dL NEGATIVE A code = KETU) UA SPECIFIC GRAVITY >=1.030 1.005-1.030 (test code = SGU) UA BLOOD DIPSTICK (test TRACE NEGATIVE A code = LISA) UA PH DIPSTICK (test 6.0 5.0-9.0 code = FLAVIO) UA PROTEIN DIPSTICK TRACE mg/dL NEGATIVE (test code = PROU) UA UROBILINOGEN DIPSTICK 2.0 mg/dL 0.2-1.0 A (test code = URO) UA NITRITE DIPSTICK NEGATIVE NEGATIVE (test code = KYLE) UA LEUKOCYTE ESTERASE NEGATIVE NEGATIVE DIPSTICK (test code = LEUU) UA WBC (test code = 0-2 #WBC/HPF 0-2 WBCU) UA RBC (test code = NONE SEEN #RBC/HPF 0-2 RBCU) UA BACTERIA (test code = OCCASIONAL /HPF NONE-TRACE A BACU) UA SQUAMOUS CELLS (test 2+ /LPF NONE-TRACE A code = SQU) UA MUCUS (test code = 2+ /LPF NONE SEEN A MUCU) Indication for culture: Suprapubic PainUR HCG [id number] 13:36:00 Test Item Value Reference Range Interpretation Comments UR HCG QUAL (test code = HCGQLU) NEGATIVE NEGATIVE Indication for culture: Suprapubic PainBASIC METABOLIC [id number] 12:58:00 Test Item Value Reference Range Interpretation Comments SODIUM (test code 142 mmol/L 136-145 N Please not e: New = NA) Reference Range Jul 2020 POTASSIUM (test 3.4 mmol/L 3.5-5.1 L code = K) CHLORIDE (test 104 mmol/L 98-107 N Please note: New code = CL) Reference Range Jul 2020 CARBON DIOXIDE 27 mmol/L 20-31 N Please note: New (test code = CO2) Reference Range Jul 2020 GLUCOSE (test code 69 mg/dL 74-106 L Please no te: New = GLU) Reference Range Jul 2020 BLOOD UREA 10 mg/dL 9-23 N Please note: Ne w NITROGEN (test Reference Ran ge Feb code = BUN) 2020 GLOMERULAR >=60 max >60 Units are FILTRATION RATE estimate mL/min mL/min/1. 73m2 The (test code = GFR) estimated glomerular filtration rate is computed usingpatient ra ce, age (>18), sex, and serum creatinin e. If anyof the neede d data elements a re missing the Laboratory danyelle ot compute an estimation of t he glomerular filtration rate . CREATININE (test 0.60 mg/dL 0.55-1.02 N Please note : New code = CREAT) Reference Rang e Jul 2020 CALCIUM (test code 8.9 mg/dL 8.7-10.4 N Please no te: New = CA) Reference Range Jul 2020 LIVER FUNCTION [id number] 12:58:00 Test Item Value Reference Range Interpretation Comments TOTAL PROTEIN (test 6.8 g/dL 5.7-8.2 N Please n ote: New code = PROT) Reference Range Jul 2020 ALBUMIN (test code = 4.3 g/dL 3.2-4.8 N Please note: New ALB) Reference Range Jul 2020 BILIRUBIN TOTAL (test 0.8 mg/dL 0.3-1.2 N Please note: New code = BILT) Reference Range Jul 2020 BILIRUBIN DIRECT (test 0.3 mg/dL <0.3 N Pleas e note: New code = BILD) Reference Range Jul 2020 SGOT/AST (test code = 39 U/L <34 H Please note: New AST) Reference Range Jul 2020 SGPT/ALT (test code = 17 U/L 10-49 N Please note: New ALT) Reference Range Jul 2020 ALKALINE PHOSPHATASE 65 U/L 46-116 N Please note: New (test code = ALKP) Reference Range Jul 2020 [id number] 12:58:00 Test Item Value Reference Range Interpretation Comments LIPASE (test code = 29 U/L 12-53 N Please n ote: New LIP) Reference Range Jul 2020 CBC W/AUTO [id number] 12:43:00 Test Item Value Reference Range Interpretation Comments WHITE BLOOD CELL (test code = 7.0 x10 3/uL 4.8-10.8 N WBC) RED BLOOD CELL (test code = 4.88 x10 6/uL 4.20-5.40 N RBC) HEMOGLOBIN (test code = HGB) 14.1 g/dL 12.0-16.0 N HEMATOCRIT (test code = HCT) 44.7 % 37.0-47.0 N MEAN CELL VOLUME (test code = 91.6 fL 81.0-99.0 N MCV) MEAN CELL HGB (test code = MCH) 28.9 pg 27-31 N MEAN CELL HGB CONCENTRATION 31.5 G/DL 33-36.5 L (test code = MCHC) RED CELL DISTRIBUTION WIDTH 14.9 % 12.9-16.9 N (test code = RDW) PLATELET COUNT (test code = 131 x10 3/uL 150-440 L PLT) MEAN PLATELET VOLUME (test code 13.6 fL 8.9-12.4 H = MPV) NEUTROPHIL % (test code = NT%) 74.6 % 42.2-75.2 N LYMPHOCYTE % (test code = LY%) 18.5 % 20.5-51.1 L MONOCYTE % (test code = MO%) 5.8 % 1.7-9.3 N EOSINOPHIL % (test code = EO%) 0.7 % 0.0-7.0 N BASOPHIL % (test code = BA%) 0.1 % 0-2.5 N NEUTROPHIL # (test code = NT#) 5.25 x10 3/uL 1.80-7.70 N LYMPHOCYTE # (test code = LY#) 1.30 x10 3/uL 1.00-4.80 N MONOCYTE # (test code = MO#) 0.41 x10 3/uL 0.00-0.80 N EOSINOPHIL # (test code = EO#) 0.05 x10 3/uL 0.00-0.45 N BASOPHIL # (test code = BA#) 0.01 x10 3/uL 0.0-0.20 N [id number] 19:35:00 Test Item Value Reference Range Interpretation Comments SURGICAL (test code = SR) RUN DATE: 05/06/21 [facility] - LAB PAGE 1 RUN TIME: 1934 Specimen Inquiry RUN USER: INTERFACE PATIENT: GIOVANNY CALDERÓN LOC: P.5N POD B U #: [id number] AGE/SX: 45/F ROOM: [facility]: Giuliano Abdullahi MD : 75 BED: 1 DIS: 05/06/21 STATUS: DIS IN TLOC: SPEC #: [id number] RECD: 05/05/21 STATUS: JACQUELINE MARTE #: [id number] INA: 05/04/21 [facility] DR: Giuliano Abdullahi MD ENTERED: 05/05/21 SP TYPE: SURGICAL OTHR DR: Alisa Beaver MD ORDERED: 11222/2, 72600/4, ANATOMIC SPEC HISTOLOGY: TISSUE ID BLK PCS LIBRA LEV / PROCEDURE DISPOSITION ____ ___ ___ ___ ___ LIVER, NOS A 1 2 STOMNT B 1 1 TISSUES: A. LIVER, NOS - Liver Bx B. STOMACH SUBTOTAL / TOTAL RESECTION NOT TUMOR/SLEEVE - Partial Stomach FINAL DIAGNOSIS A. LIVER, WEDGE BIOPSY: Mild zonal macrovesicular steatosis. B. STOMACH, SLEEVE GASTRECTOMY: Mild diffuse chronic nonspecific oxyntic gastritis. ADDITONAL LIVER STUDIES:The iron stain shows no deposits. The reticulin stain reveals a normal hepatocyte network.No fibrosis is identified with the trichrome stain. PAS with diastase stain does not revealalpha 1 anti-trypsin deposits. There is no hepatocyte ballooning, lobular inflammation ortriaditis. GROSS DESCRIPTION A. The specimen is received in a container with formalin, identified with patient's nameand liver biopsy. It consists of wedge biopsy of light mcpherson liver tissue measuring 1.5 x 0.8x 0.7 cm. The specimen is serially sectioned and entirely submitted in cassette A.B. The specimen is received in a container with formalin, identified with patient's nameand partial stomach. The specimen consists of gastrectomy that is 7 cm long by a diameterthat varies from 2.8 up to 4 cm. On opening, it shows a normal rugal pattern of the mucosaand a wall thickness up to 0.5 cm. Sections are submitted in cassette B.CM/ks Technical component performed at [facility] [facility], [facility], [address] CONTINUED ON NEXT PAGE RUN DATE: 05/06/21 [facility] - LAB PAGE 2 RUN TIME: 1934 Specimen Inquiry RUN USER: INTERFACE SPEC #: [id number] PATIENT: GIOVANNY CALDERÓN #[id number] (Continued) --- MICROSCOPIC DESCRIPTION Performed. CLINICAL INFORMATION Morbid Obesity Signed SIGNATURE ON FILE Colin Zamudio MD 05/06/211934 END OF REPORT [id number] 06:09:00 Test Item Value Reference Range Interpretation Comments GLUBED (test code = GLUBED) 106 MG/DL 70-105 H [id number] 00:17:00 Test Item Value Reference Range Interpretation Comments GLUBED (test code = GLUBED) 111 MG/DL 70-105 H [id number] 19:16:00 Test Item Value Reference Range Interpretation Comments GLUBED (test code = GLUBED) 107 MG/DL 70-105 H [id number] 12:29:00 Test Item Value Reference Range Interpretation Comments GLUBED (test code = GLUBED) 135 MG/DL 70-105 H BASIC METABOLIC [id number] 06:20:00 Test Item Value Reference Range Interpretation Comments SODIUM (test code 140 mmol/L 136-145 N Please not e: New = NA) Reference Range Jul 2020 POTASSIUM (test 3.7 mmol/L 3.5-5.1 N code = K) CHLORIDE (test 104 mmol/L 98-107 N Please note: New code = CL) Reference Range Jul 2020 CARBON DIOXIDE 25 mmol/L 20-31 N Please note: New (test code = CO2) Reference Range Jul 2020 GLUCOSE (test code 129 mg/dL 74-106 H Please no te: New = GLU) Reference Range Jul 2020 BLOOD UREA < 5 mg/dL 9-23 L Please note: Ne w NITROGEN (test Reference Ran ge Feb code = BUN) 2020 GLOMERULAR >=60 max >60 Units are FILTRATION RATE estimate mL/min mL/min/1. 73m2 The (test code = GFR) estimated glomerular filtration rate is computed usingpatient ra ce, age (>18), sex, and serum creatinin e. If anyof the neede d data elements a re missing the Laboratory danyelle ot compute an estimation of t he glomerular filtration rate . CREATININE (test 0.60 mg/dL 0.55-1.02 N Please note : New code = CREAT) Reference Rang e Jul 2020 CALCIUM (test code 8.2 mg/dL 8.7-10.4 L Please no te: New = CA) Reference Range Jul 2020 [id number] 06:20:00 Test Item Value Reference Range Interpretation Comments PHOSPHOROUS (test code 4.0 mg/dL 2.4-5.1 N Pleas e note: New = PHOS) Reference Range Jul 2020 [id number] 06:20:00 Test Item Value Reference Range Interpretation Comments MAGNESIUM (test code = 1.7 mg/dL 1.6-2.6 N Pleas e note: New MAG) Reference Range Jul 2020 [id number] 06:14:00 Test Item Value Reference Range Interpretation Comments GLUBED (test code = GLUBED) 138 MG/DL 70-105 H CBC W/AUTO [id number] 05:54:00 Test Item Value Reference Range Interpretation Comments WHITE BLOOD CELL (test code = 11.0 x10 3/uL 4.8-10.8 H WBC) RED BLOOD CELL (test code = 4.79 x10 6/uL 4.20-5.40 N RBC) HEMOGLOBIN (test code = HGB) 13.5 g/dL 12.0-16.0 N HEMATOCRIT (test code = HCT) 44.5 % 37.0-47.0 N MEAN CELL VOLUME (test code = 92.9 fL 81.0-99.0 N MCV) MEAN CELL HGB (test code = MCH) 28.2 pg 27-31 N MEAN CELL HGB CONCENTRATION 30.3 G/DL 33-36.5 L (test code = MCHC) RED CELL DISTRIBUTION WIDTH 14.0 % 12.9-16.9 N (test code = RDW) PLATELET COUNT (test code = 180 x10 3/uL 150-440 N PLT) MEAN PLATELET VOLUME (test code 13.0 fL 8.9-12.4 H = MPV) NEUTROPHIL % (test code = NT%) 90.5 % 42.2-75.2 H LYMPHOCYTE % (test code = LY%) 5.3 % 20.5-51.1 L MONOCYTE % (test code = MO%) 3.5 % 1.7-9.3 N EOSINOPHIL % (test code = EO%) 0.2 % 0.0-7.0 N BASOPHIL % (test code = BA%) 0.2 % 0-2.5 N NEUTROPHIL # (test code = NT#) 9.98 x10 3/uL 1.80-7.70 H LYMPHOCYTE # (test code = LY#) 0.58 x10 3/uL 1.00-4.80 L MONOCYTE # (test code = MO#) 0.38 x10 3/uL 0.00-0.80 N EOSINOPHIL # (test code = EO#) 0.02 x10 3/uL 0.00-0.45 N BASOPHIL # (test code = BA#) 0.02 x10 3/uL 0.0-0.20 N [id number] 00:38:00 Test Item Value Reference Range Interpretation Comments GLUBED (test code = GLUBED) 118 MG/DL 70-105 H [id number] 16:23:00 Test Item Value Reference Range Interpretation Comments GLUBED (test code = GLUBED) 118 MG/DL 70-105 H [id number] 14:47:00 Test Item Value Reference Range Interpretation Comments GLUBED (test code = GLUBED) 84 MG/DL 70-105 N COVID Asymptomatic IH [id number] 13:19:00 Test Item Value Reference Interpretation Comments Range COVID Negative Negative A negative resu lt does not Asymptomatic IH preclude the SARS-COV-2 NTX (test code = viralinfect ion and should not COVNONPUINTX) be used as the sole basis forpatient jael gement decisions. Nega tive results must becombined with clinical observations, p atient history, andepidemiologi diane information. Vi ral levels in clinicalsamples below the detection limit of the assay could lead tone gative results. This test was p erformed using the [employer] Smart TM COVID-19 PCRassay. This test was developed and i ts performancechar acteristics were determined by [facility]. Thi s test has notbeen FDA analy ared or approved. This test is authorized by t heFDA under Emergency Use Authorization(E UA). The EUA willremain in e ffect unless it is terminated o r revoked by FDA . Testing p arameters have not been valida octaviano for screeningasympt omatic patients. This test was validated accor ding to the FDA's guidanced ocument "Policy for Diagnostics testing in LaboratoriesCer tified to Perform High Co mplexity Testing under C NENA". First test? UnknownEmployed in Healthcare? UnknownSymptomatic as defined by CDC? UnknownHospitalizeddue to COVID? UnknownIn ICU due to COVID? UnknownResident in a congregate care setting? Unknown? UnknownAge at collection: YBASIC METABOLIC [id number] 18:29:00 Test Item Value Reference Range Interpretation Comments SODIUM (test code 139 mmol/L 136-145 N Please not e: New = NA) Reference Range Jul 2020 POTASSIUM (test 3.6 mmol/L 3.5-5.1 N code = K) CHLORIDE (test 102 mmol/L 98-107 N Please note: New code = CL) Reference Range Jul 2020 CARBON DIOXIDE 24 mmol/L 20-31 N Please note: New (test code = CO2) Reference Range Jul 2020 GLUCOSE (test code 70 mg/dL 74-106 L Please no te: New = GLU) Reference Range Jul 2020 BLOOD UREA 10 mg/dL 9-23 N Please note: Ne w NITROGEN (test Reference Ran ge Feb code = BUN) 2020 GLOMERULAR >=60 max >60 Units are FILTRATION RATE estimate mL/min mL/min/1. 73m2 The (test code = GFR) estimated glomerular filtration rate is computed usingpatient ra ce, age (>18), sex, and serum creatinin e. If anyof the neede d data elements a re missing the Laboratory danyelle ot compute an estimation of t he glomerular filtration rate . CREATININE (test 0.60 mg/dL 0.55-1.02 N Please note : New code = CREAT) Reference Rang e Jul 2020 CALCIUM (test code 9.0 mg/dL 8.7-10.4 N Please no te: New = CA) Reference Range Jul 2020 PROTHROMBIN [id number] 18:12:00 Test Item Value Reference Range Interpretation Comments PROTHROMBIN TIME 13.6 SECONDS 10.3-12.9 H PATIENT (test code = PTP) INTERNATIONAL 1.19 INR UNIT 0.9-1.11 H The INR is us eful only NORMAL RATIO (test for monit oring code = INR) anticoagulant therapy.It may be unreliable in t he initial phase o f antigoagulation and in unstable patien ts. Indication for Anticoagulation Recommended INR 1. Prevention of v enous thomboembolism 2.0-3.0in high- risk patients; treat ment of venousthrombosi s and pulmonary embol ism aftera course o f heparin; preven tion of systemicembolis m in a variety of cond itions, including atria l fibrillation an d prothetic tissu e heart valves, 2. Pros thetic mechanical hear t valves; 2.5-3.5recurren t systemic emboli sm. THROMBOPLASTIN TIME [id number] 18:12:00 Test Item Value Reference Range Interpretation Comments THROMBOPLASTIN TIME 33.9 SECONDS 23.8-34.8 N INTERPRE TATIVE PARTIAL (test code = DATA: erapeutic PTT) range: Unfractionated heparin:55 - 80 seconds Argatroban:1.5 to 3 times the basel ine PTT CBC W/AUTO [id number] 18:00:00 Test Item Value Reference Range Interpretation Comments WHITE BLOOD CELL (test code = 7.9 x10 3/uL 4.8-10.8 N WBC) RED BLOOD CELL (test code = 4.66 x10 6/uL 4.20-5.40 N RBC) HEMOGLOBIN (test code = HGB) 13.3 g/dL 12.0-16.0 N HEMATOCRIT (test code = HCT) 41.3 % 37.0-47.0 N MEAN CELL VOLUME (test code = 88.6 fL 81.0-99.0 N MCV) MEAN CELL HGB (test code = MCH) 28.5 pg 27-31 N MEAN CELL HGB CONCENTRATION 32.2 G/DL 33-36.5 L (test code = MCHC) RED CELL DISTRIBUTION WIDTH 13.6 % 12.9-16.9 N (test code = RDW) PLATELET COUNT (test code = 225 x10 3/uL 150-440 N PLT) MEAN PLATELET VOLUME (test code 12.2 fL 8.9-12.4 N = MPV) NEUTROPHIL % (test code = NT%) 73.1 % 42.2-75.2 N LYMPHOCYTE % (test code = LY%) 19.8 % 20.5-51.1 L MONOCYTE % (test code = MO%) 4.8 % 1.7-9.3 N EOSINOPHIL % (test code = EO%) 1.5 % 0.0-7.0 N BASOPHIL % (test code = BA%) 0.3 % 0-2.5 N NEUTROPHIL # (test code = NT#) 5.80 x10 3/uL 1.80-7.70 N LYMPHOCYTE # (test code = LY#) 1.57 x10 3/uL 1.00-4.80 N MONOCYTE # (test code = MO#) 0.38 x10 3/uL 0.00-0.80 N EOSINOPHIL # (test code = EO#) 0.12 x10 3/uL 0.00-0.45 N BASOPHIL # (test code = BA#) 0.02 x10 3/uL 0.0-0.20 N GLUCOSE BEDSIDE [id number] 11:18:00 Test Item Value Reference Range Interpretation Comments GLUCOSE BEDSIDE TESTING (test code 127 MG/DL 70-119 H = GLUBED) COVID 19 Asymptomatic IH [id number] 11:01:00 Test Item Value Reference Range Interpretation Comments COVID 19 Asymptomatic IH AG (test Negative Neg code = COVNONPUIAG) GLUCOSE BEDSIDE [id number] 06:07:00 Test Item Value Reference Range Interpretation Comments GLUCOSE BEDSIDE TESTING (test code 138 MG/DL 70-119 H = GLUBED) GLUCOSE BEDSIDE [id number] 20:58:00 Test Item Value Reference Range Interpretation Comments GLUCOSE BEDSIDE TESTING (test code 190 MG/DL 70-119 H = GLUBED) GLUCOSE BEDSIDE [id number] 16:30:00 Test Item Value Reference Range Interpretation Comments GLUCOSE BEDSIDE TESTING (test code 152 MG/DL 70-119 H = GLUBED) GLUCOSE BEDSIDE [id number] 11:40:00 Test Item Value Reference Range Interpretation Comments GLUCOSE BEDSIDE TESTING (test code 151 MG/DL 70-119 H = GLUBED) GLUCOSE BEDSIDE [id number] 05:53:00 Test Item Value Reference Range Interpretation Comments GLUCOSE BEDSIDE TESTING (test code 124 MG/DL 70-119 H = GLUBED) GLUCOSE BEDSIDE [id number] 21:00:00 Test Item Value Reference Range Interpretation Comments GLUCOSE BEDSIDE TESTING (test code 151 MG/DL 70-119 H = GLUBED) GLUCOSE BEDSIDE [id number] 16:24:00 Test Item Value Reference Range Interpretation Comments GLUCOSE BEDSIDE TESTING (test code 118 MG/DL 70-119 N = GLUBED) GLUCOSE BEDSIDE [id number] 11:46:00 Test Item Value Reference Range Interpretation Comments GLUCOSE BEDSIDE TESTING (test code 129 MG/DL 70-119 H = GLUBED) GLUCOSE BEDSIDE [id number] 06:20:00 Test Item Value Reference Range Interpretation Comments GLUCOSE BEDSIDE TESTING (test code = 98 MG/DL 70-119 N GLUBED) GLUCOSE BEDSIDE [id number] 19:56:00 Test Item Value Reference Range Interpretation Comments GLUCOSE BEDSIDE TESTING (test code 130 MG/DL 70-119 H = GLUBED) GLUCOSE BEDSIDE [id number] 15:54:00 Test Item Value Reference Range Interpretation Comments GLUCOSE BEDSIDE TESTING (test code = 93 MG/DL 70-119 N GLUBED) GLUCOSE BEDSIDE [id number] 11:38:00 Test Item Value Reference Range Interpretation Comments GLUCOSE BEDSIDE TESTING (test code 133 MG/DL 70-119 H = GLUBED) GLUCOSE BEDSIDE [id number] 06:07:00 Test Item Value Reference Range Interpretation Comments GLUCOSE BEDSIDE TESTING (test code 106 MG/DL 70-119 N = GLUBED) - CT HEAD/BRAIN W/O [id number] 23:08:00 [facility] : 1975 Sex: F PatientName: GIOVANNY CALDERÓN Unit No: [id number] EXAMS: CPT CODE: [id number] CT HEAD/BRAIN W/O CONT 77706 EXAM: - CT HEAD/BRAIN W/O CONT LOCATION: H57 HISTORY: 45 years-year old Female with R/O STROKE TECHNIQUE: Computerized tomography images from the skull base to the vertex were obtained. Coronal and sagittal reformatted images are provided. This exam was performed according to our departmental dose-optimization program, which includes automated exposure control, adjustment of the mA and/or kV according topatient size and/or use of iterative reconstruction technique COMPARISON: 10/28/2020 FINDINGS: Brain: The brain parenchyma is unremarkable. There is no evidence of an acute territorial infarct. There is no mass effect, midline shift, or parenchymal edema. Ventricles/Extra-axial spaces: There is no acute intracranial hemorrhage or extra-axial fluid collection. The ventricles are unremarkable. No basalcistern effacement. Bones: There is no evidence of acute displaced calvarial fracture. Sinuses: The visualized paranasal sinuses and mastoid air cells are clear. Soft Tissues: Unremarkable. Other: None. IMPRESSION: 1. No CT evidence of acute intracranial abnormality. at 2308 Reported and signed by: Alisa Alcocer MD CC: Heather Keller;Zander Camilo MD Dictated Date/Time: 10/31/2020 (2307) Technologist: Sara Varela CTDI: 43.27 DLP: 757.79 Trnscrpt: 10/31/2020 (2307) [email or web address] RAND Evangelista NAME: GIOVANNY CALDERÓN [facility] PHYS: ANNAMARIA [address] : 1975 AGE: 45 SEX: F YAYA EVANGELISTA [id number] NO: [id number] LOC: B.160 W PHONE #: [phone] EXAM DATE: 10/31/2020 STATUS: ADM IN FAX #: [phone] RAD #: D/C DT PAGE 1 Signed Report Patient Name: GIOVANNY CALDERÓN Unit No: [id number] EXAMS: CPT CODE: [id number] CT HEAD/BRAIN W/O CONT 39343 <Continued> Orig Print D/T: S: 10/31/2020(1316) RAND Evangelista NAME: GIOVANNY CALDERÓN [facility] PHYS: ANNAMARIA [address] : 1975 AGE: 45 SEX: F YAYA EVANGELISTA [address] LOC: B.160 W PHONE#: [phone] EXAM DATE: 10/31/2020 STATUS: ADM IN FAX #: [phone] RAD #: D/C DT PAGE 2 Signed ReportGLUCOSE BEDSIDE [id number] 20:30:00 Test Item Value Reference Range Interpretation Comments GLUCOSE BEDSIDE TESTING (test code 111 MG/DL 70-119 N = GLUBED) GLUCOSE BEDSIDE [id number] 16:58:00 Test Item Value Reference Range Interpretation Comments GLUCOSE BEDSIDE TESTING (test code 110 MG/DL 70-119 N = GLUBED) GLUCOSE BEDSIDE [id number] 11:53:00 Test Item Value Reference Range Interpretation Comments GLUCOSE BEDSIDE TESTING (test code 149 MG/DL 70-119 H = GLUBED) GLUCOSE BEDSIDE [id number] 06:44:00 Test Item Value Reference Range Interpretation Comments GLUCOSE BEDSIDE TESTING (test code 119 MG/DL 70-119 N = GLUBED) GLUCOSE BEDSIDE [id number] 21:10:00 Test Item Value Reference Range Interpretation Comments GLUCOSE BEDSIDE TESTING (test code 143 MG/DL 70-119 H = GLUBED) - CT ANGIO [id number] 14:40:00 [facility] : 1975 Sex: F PatientName: GIOVANNY CALDERÓN Unit No: [id number] EXAMS: CPT CODE: [id number] CT ANGIO HEAD [address] Location code: R 16 CT Angiogram of the Carotid Arteries Indication: STROKE. Comparison: 10/27/2020. Technique: Axial images were obtained post IV contrast with sagittal and coronal MIPS. This exam was performed according to our departmental dose-optimization program, which includes H5 automated exposure control, adjustment of the mA and/or kV according to patient size and/or use of iterative reconstruction technique. Total exam DLP 1429.59 Contrast: 95 mL Isovue-370 IV.. Findings: Right carotid arterial system:the common carotid, internal carotid, and external carotid arteries are patent with no evidence of stenosis, aneurysm formation, or atherosclerotic diease. Left carotid arterial system: the common carotid, internal carotid, and external carotid arteries are patent with no evidence of stenosis, aneurysm formation, or atherosclerotic diease. Right vertebral artery: Unremarkable. Left vertebral artery: U nremarkable. Other visualized neck structures: Unremarkable. Impression: 1. Unremarkable CT angiogram of the carotid arteries. CT angiography of the [place] with Contrast Indication: Stenosis, aneurysm. Comparison: 10/27/2020. Technique: Axial images were obtained post IV contrast with Sagittal and coronal MIPS. This exam was performed according to our departmental dose-optimization program, which includes automated exposure control, adjustment of the mA and/or kV according to patient size and/or use of [facility] [place] NAME: GIOVANNY CALDERÓN [facility] PHYS: ANNAMARIA Keller [address] : 1975 AGE: 45 SEX: F YAYA EVANGELISTA [id number] LOC: B.160 W PHONE #: [phone] EXAM DATE: 10/30/2020 STATUS: ADM IN FAX #: [phone] RAD #: D/C DT PAGE 1 Signed Report (CONTINUED) Patient Name: GIOVANNY CALDERÓN Unit No: [id number] EXAMS: CPT CODE: [id number] CT ANGIO HEAD [address] <Continued> iterative reconstruction technique. Total exam DLP 1429.59 Contrast: 95 mL Isovue-370 IV. Findings: The internal carotid arteries, middle cerebral arteries anterior cerebral arteries are normal in appearance. The anterior communicating artery is patent. Posterior communicating arteries are patent. The vertebrobasilar system, including the posterior cerebralarteries, are normal in appearance. The right posterior cerebral arteries primarily supplied by theright carotid system. No evidence of aneurysm, stenosis, or occlusion. No evidence of vascular malformation. Impression: 1. Normal exam. at 1440 Reported and signed by: Omi Sherman MD CC: Heather Keller; Zander Camilo MD Dictated Date/Time: 10/30/2020 (1440) Technologist: Gama Lewis CTDI: 0 DLP: 0 RAND Evangelista NAME: GIOVANNY CALDERÓN [facility] PHYS: Heather Jackson [address] : 1975 AGE: 45 SEX:YAYA [place]ER[place] [address] LOC: B.160 W PHONE #: [phone] EXAM DATE: 10/30/2020TATUS: ADM IN FAX #: [phone] RAD #: D/C DT PAGE 2 Signed Report Patient Name: GIOVANNY CALDERÓN [facility] No: [id number] EXAMS: CPT CODE: [id number] CT ANGIO HEAD [address] <Continued> Trnscrpt: 10/30/2020 (4830) [email or web address] RAND Evangelista NAME: CALDERÓNGIOVANNY [facility] PHYS: Heather Jackson [address] : 1975 AGE: 45 SEX: YAYA GERMAN [address] LOC: B.160 W PHONE #: [phone] EXAM DATE: 10/30/2020 STATUS: ADM IN FAX #: [phone] RAD #: D/C DT PAGE 3 Signed Report- CT ANGIO [id number] 14:40:00[facility] : 1975 Sex: F PatientName: GIOVANNY CALDERÓN Unit No: [id number] EXAMS: CPT CODE: [id number] CT ANGIO NECK [address] Location code: R 16 CT Angiogram of the Carotid Arteries Indication: STROKE. Comparison: 10/27/2020. Technique: Axial images were obtained post IV contrast with sagittal and coronal MIPS. This exam was performed according to our departmental dose-optimization program, which includes H5 automated exposure control,adjustment of the mA and/or kV according to patient size and/or use of iterative reconstruction technique. Total exam DLP 1429.59 Contrast: 95 mL Isovue-370 IV.. Findings: Right carotid arterial system: the common carotid, internal carotid, and external carotid arteries are patent with no evidence of s tenosis, aneurysm formation, or atherosclerotic diease. Left carotid arterial system: the common carotid, internal carotid, and external carotid arteries are patent with no evidence of stenosis, aneurysm formation, or atherosclerotic diease. Right vertebral artery: Unremarkable. Left vertebral artery: Unremarkable. Other visualized neck structures: Unremarkable. Impression: 1. Unremarkable CT angiogram of the carotid arteries. CT angiography of the [place] with Contrast Indication: Stenosis, aneurysm. Comparison: 10/27/2020. Technique: Axial images were obtained post IV contrast with Sagittal and coronal MIPS. This exam was performed according to our departmental dose-optimization program, which includes automated exposure control, adjustment of the mA and/or kV according to patient size and/or use of [facility] [place] NAME: GIOVANNY CALDERÓN [facility] PHYS: Heather Jackson [address] : 1975 AGE: 45 SEX: F YAYA EVANGELISTA [address] [facility] NO: [id number] LOC: B.160 W PHONE #: [phone] EXAM DATE: 10/30/2020 STATUS: ADM IN FAX #: [phone] RAD #: D/C DT PAGE 1 Signed Report (CONTINUED) Patient Name: GIOVANNY CALDERÓN Unit No: [id number] EXAMS: CPT CODE: [id number] CT ANGIO NECK [address] <Continued> iterative reconstruction technique. Total exam DLP 1429.59 Contrast: 95 mL Isovue-370 IV. Findings: The internal carotid arteries, middle cerebral arteries anterior cerebral arteries are normal in appearance. The anterior communicating artery is patent. Posterior communicating arteries are patent. The vertebrobasilar system, including the posterior cerebral arteries, are normal in appearance. The right posterior cerebral arteries primarily supplied by theright carotid system. No evidence of aneurysm, stenosis, or occlusion. No evidence of vascular malformation. Impression: 1. Normal exam. at 1440 Reported and signed by: Omi Sherman MD CC: Heather Keller; Zander Camilo MD Dictated Date/Time: 10/30/2020 (1440) Technologist: Gama Lewis CTDI: 62.79 DLP: 1429.59 Trnscrpt: 10/30/2020 (1440) [id number] RAND Evangelista NAME: GIOVANNY CALDERÓN [facility] : 1975 AGE: 45 SEX: YAYA GERMAN [facility] LOC: B.160 W PHONE #: [phone] EXAM DATE: 10/30/2020 STATUS: ADM IN FAX #: [phone] RAD #: D/C DT PAGE 2 Signed Report Patient Name: GIOVANNY CALDERÓN Unit No: [id number] EXAMS: CPT CODE: [id number] CT ANGIO NECK [address] <Continued> Orig Print D/T: S: 10/30/2020 (7883) RAND Evangelista NAME: GIOVANNY CALDERÓN [facility] PHYS: ANNAMARIA Nagelayaan[address] : 1975 AGE: 45 SEX:F YAYA EVANGELISTA [facility] LOC: B.160 W PHONE #: [phone] EXAM DATE: 10/30/2020TATUS: ADM IN FAX #: [phone] RAD #: D/C DT PAGE 3 Signed ReportBASIC METABOLIC [id number] 08:27:00 Test Item Value Reference Range Interpretation [...] (test code = MG Index/DL The system [employer]) generated this result transmit octaviano reference range [...] this result as normal/abnormal . CBC W/AUTO [id number] 07:39:00 Test Item Value Reference Range Interpretation [...] 0.00 K/mm3 0.0-0.05 N NRBC#) GLUCOSE BEDSIDE [id number] 20:47:00 Test Item Value Reference Range Interpretation Comments GLUCOSE BEDSIDE TESTING (test code 112 MG/DL 70-119 N = GLUBED) GLUCOSE BEDSIDE [id number] 18:38:00 Test Item Value Reference Range Interpretation Comments GLUCOSE BEDSIDE TESTING (test code = 84 MG/DL 70-119 N GLUBED) - CT HEAD/BRAIN W/O [id number] 09:37:00 [facility] CAL[facility] : 1975 Sex: F PatientName: GIOVANNY CALDERÓN Unit No: [id number] EXAMS: CPT CODE: [id number] CT HEAD/BRAIN W/O CONT 59004 EXAM: - CT HEAD/BRAIN W/O CONT INDICATION: [...] territorial infarct, or intracranial hemorrhage seen. No masseffect, midline shift or hydrocephalus seen. Bones and soft tissues:Appear unremarkable. Paranasal si nuses, and mastoid air cells: Appear clear. Orbits:Visualized orbits appear unremarkable. IMPRESSION: No acute intracranial process seen. at 0987 Reported and signed by: Edmond Carter MD CC: Tyesha Dacosta MD; Zander Camilo MD; Omayra Alfonso Dictated Date/Time: 10/29/2020 (09) Technologist: Moriah Mills CTDI: 47.36 DLP: 757.79 Trnscrpt: 10/29/2020 (0937) [id number] RAND Evangelista NAME: GIOVANNY CALDERÓN MEDICAL [facility] PHYS: Tyesha Rowanafa [address] [place] [address] : 1975 AGE: 45 SEX: Collette EVANGELISTA [place] [id number] LOC: B.CCU34 D PHONE #: [phone] EXAM DATE: 10/28/2020 STATUS: ADM IN FAX #: [phone] RAD #: D/C DT PAGE 1 Signed Report Patient Name: GIOVANNY CALDERÓN Unit No: [id number] EXAMS: CPT CODE: [id number] CT HEAD/BRAIN W/O CONT 29727 <Continued> Orig Print D/T: S: 10/29/2020 (0940) RAND Evangelista NAME: GIOVANNY CALDERÓN [facility] PHYS: Tyesha Mckeona [address] [facility] 1975 AGE: 45 SEX: Collette [place]ELISTA [place] [address] LOC: B.CCU34 D PHONE #: [phone] EXAM DATE: 10/28/2020 STATUS: ADM IN FAX #: [phone] RAD #: D/C DT PAGE 2 Signed ReportBASIC METABOLIC [id number] 06:27:00 Test Item Value Reference Range Interpretation [...] message] (test code = Index/DL The system [employer]) generated this result transmit octaviano reference range [...] 4.0-12.0 N code = CARB) BASIC METABOLIC [id number] 06:25:00 Test Item Value Reference Range Interpretation [...] message] (test code = Index/DL The system [employer]) generated this result transmit octaviano reference [...] code = mcG/ML 4.0-12.0 CARB) CBC W/AUTO [id number] 06:12:00 Test Item Value Reference Range Interpretation [...] 0.00 K/mm3 0.0-0.05 N NRBC#) GLUCOSE BEDSIDE [id number] 00:39:00 Test Item Value Reference Range Interpretation Comments GLUCOSE BEDSIDE TESTING (test 91 MG/DL 70-119 N Notified Nurse~ code = GLUBED) GLUCOSE BEDSIDE [id number] 17:31:00 Test Item Value Reference Range Interpretation Comments GLUCOSE BEDSIDE TESTING (test code 103 MG/DL 70-119 N = GLUBED) GLUCOSE BEDSIDE [id number] 12:56:00 Test Item Value Reference Range Interpretation Comments GLUCOSE BEDSIDE TESTING (test code = 99 MG/DL 70-119 N GLUBED) URINALYSIS [id number] 11:40:00 Test Item Value Reference Range Interpretation [...] = RARE /LPF NONE MUCU) GLUCOSE BEDSIDE [id number] 08:42:00 Test Item Value Reference Range Interpretation Comments GLUCOSE BEDSIDE TESTING (test code = 97 MG/DL 70-119 N GLUBED) VITAMIN [id number] 08:05:00 Test Item Value Reference Range Interpretation Comments VITAMIN B12 (test code = VITB12) 382 PG/ML 183-986 N FOLIC [id number] 08:05:00 Test Item Value Reference Range Interpretation [...] REFER ENCE RANGE: (test code = CHOLHDL) MALE F EMALE 1/2 AVG RISK 3.43 3.27 AVG RISK 4.97 4.44 2X AVG RISK 9.55 7 .05 3X AVG RISK 23. 39 11.04 [Automate d message] The sy stem which generated this [...] = NHDL) CHD risk LDL: <70 mg/dL nonHDL: < 100 mg/dLPatients w ith 2+ risk factors LDL: <130 mg/dL nonH DL: <160 mg/dLPatie nts with 0-1 risk factors LDL: <1 60 mg/dL nonHDL: < 190 mg/dL LIPOPROTEIN LDL (test 60 MG/DL 0-129 N code = LDL) LDL/HDL (test code = 1.22 Ratio See_Comment L LDL/HDL RISK LDL/HDL) ASSESSMENT1.47 One-half averag e3.22 Average5.03 Two times average6. [address] rage [Automated mess age] The system [employer] generated this result transmit octaviano reference range : 1.48-3.22 Avg. The reference range was not used to interpret this result as normal/abnormal . GLYCOSYLATED HEMOGLOBIN (HA1C)2020-10-28 07:37:00 Test Item Value Reference Range Interpretation Comments GLYCOSYLATED HEMOGLOBIN (HA1C) 7.3 % IS-A1C 4.5-5.6 H (test code = GLYHGB) ESTIMATED AVERAGE [id number] 07:37:00 Test Item Value Reference Range Interpretation Comments ESTIMATED AVERAGE GLUCOSE (test 163 MG/DLest code = EAG) CBC W/AUTO [id number] 07:29:00 Test Item Value Reference Range Interpretation [...] = 0.00 K/mm3 0.0-0.05 N NRBC#) SED [id number] 07:29:00 Test Item Value Reference Range Interpretation Comments SED RATE (test code = SEDW) 23 mm/hr 0-20 H COMPREHENSIVE METABOLIC [id number] 07:22:00 Test Item Value Reference Range Interpretation [...] (test code = MG Index/DL The system ac h [employer]) generated this result transmit octaviano [...] to interpret this result as normal/abnormal . [id number] 07:22:00 Test Item Value Reference Range Interpretation Comments PHOSPHOROUS (test code = PHOS) 4.5 MG/DL 2.5-4.9 N [id number] 07:22:00 Test Item Value Reference Range Interpretation Comments MAGNESIUM (test code = MAG) 2.4 MG/DL 1.6-2.6 N THYROID STIMULATING [id number] 07:22:00 Test Item Value Reference Range Interpretation Comments THYROID STIMULATING HORMONE 1.190 mc IU/ML 0.340-4.820 N (test code = TSH) COMPREHENSIVE METABOLIC [id number] 07:10:00 Test Item Value Reference Range Interpretation [...] [Auto mated code = ICTINDEX) Index/DL message] e system which generated this [...] to interpret this result as normal/abnormal . [id number] 07:10:00 Test Item Value Reference Range Interpretation Comments PHOSPHOROUS (test code = PHOS) MG/DL 2.5-4.9 [id number] 07:10:00 Test Item Value Reference Range Interpretation Comments MAGNESIUM (test code = MAG) 2.4 MG/DL 1.6-2.6 N THYROID STIMULATING [id number] 07:10:00 Test Item Value Reference Range Interpretation Comments THYROID STIMULATING HORMONE (test mc IU/ML 0.340-4.820 code = TSH) CBC W/AUTO [id number] 06:44:00 Test Item Value Reference Range Interpretation [...] = 0.00 K/mm3 0.0-0.05 N NRBC#) SED [id number] 06:44:00 Test Item Value Reference Range Interpretation Comments SED RATE (test code = SEDW) mm/hr 0-20 PT AND [id number] 06:36:00 Test Item Value Reference Interpretation Comments Range PT PATIENT (test 12.5 SECONDS 9.4-12.5 N code = PTP) INTERNATIONAL 1.10 INR 0.88-1.13 N NORMAL RATIO (test Unit --------- code = INR) ---------Therap eutic range for INR i s dependent upon the situation.2.0-3 .0 Prophylaxis / v enous thromboembolism , Treatment of DV T, Acute myocardial infa rction stroke preventi on, Systemic emboli sm prevention in fibrillation3.0 -4.5 AMI recurrence prev ention, Systemic emboli sm prevention in p rosthetic heart 3.0-5.4 A HI mortality reduc tion THROMBOPLASTIN TIME 28.3 SECONDS 24-37.7 N THERAPEU TIC RANGE FOR PARTIAL (test code UNFRACTIO NATED HEPARIN = = PTT) 50.5-83.6 SEC T his test is not recommen ded to monitor low molecularweight heparin or danaparoid. Order LMWH test COLLECTION THROUGH LINES THAT HAVE BEEN PREVIOUSLY FLUS HEDWITH HEPARIN SHOULD BE AVOIDED DUE TO POSSIBLE HEPARINCONTAMIN ATION - CT ANGIO [id number] 23:36:00 [facility] 1976 Sex: F Name: GIOVANNY CALDERÓN [facility] : 1976 Age/S: 44 / F [address] [address] Unit #: [id number] Loc: [place] [address] Phys: Lisa Amaya MD Acct: [id number] Dis Date: Status: REG ER PHONE #: [phone] Exam Date: 10/27/2020 8234 FAX #: Reason: left side weakness EXAMS: CPT: [id number] CT ANGIO NECK [address]653 EXAM: - CT ANGIO HEAD, - CT ANGIO NECK LOCATION: H57 HISTORY: left side weakness TECHNIQUE: CTA head: Axial CT images were obtained from the skull base to the vertex after intravenous contrast utilizing CTA protocol. Coronal and sagittal maximum intensity projection images are provided. CTA neck: Axial CT images were obtained from the aortic arch to the skull base after intravenous contrast utilizing CTA protocol. Coronal and sagittal maximum intensity projection images are provided. This exam was performed according to our departmental dose-optimization program, which includes automated exposure control, adjustment of the mA and/or kV according to patient size and/or use of iterativereconstruction technique COMPARISON: None available time of interpretation. FINDINGS: Exam is limited by severe venous contamination. For the purposes of this dictation, hemodynamically significant stenosis is characterized as greater than 50%. CTA head: The petrous, cavernous, and clinoid internal carotid arteries do not demonstrate hemodynamically significant stenoses. The anterior and middle cerebral arteries do not demonstrate hemodynamically significant stenoses. Ada of both vertebral arteries into the basilar. Basilar artery and posterior cerebral arteries are do not demonstrate hemodynamically significant stenoses. No aneurysm is seen. The dural venous sinuses are patent. PAGE 1 Signed Report (CONTINUED) Name: GIOVANNY CALDERÓN [facility] : 1976 Age/S: 44 / F [address] [address] Unit #: [id number] Loc: [place] [address] Phys: Lisa Amaya MD Acct: [id number] Dis Date:Status: REG ER PHONE #: [phone] Exam Date: 10/27/2020 2330 FAX #: Reason: left side weakness EXAMS: CPT: [id number] CT ANGIO NECK [address] <Continued> CTA neck: The origins of the great vessels from the aortic arch do not demonstrate hemodynamically significant stenoses. The bilateral common carotid arteries and bulbs are without hemodynamically significant stenosis. The internal carotid arteries do not demonstrate hemodynamically significant stenosis. No pseudoaneurysm or dissection. The vertebral arteries are codominant. No incidental soft tissue findings. IMPRESSION: 1. No hemodynamicallysignificant stenoses of the cervical carotid or vertebral arteries. 2. Evaluation of the intracranial vessels is limited by extensive venous contamination. No obvious large vessel occlusion is identified. MRA may be considered for further evaluation if clinically indicated. 3. No aneurysm or dissection. Findings were communicated to Lisa Amaya MD by telephone on 10/27/2020 11:36 PM. at 2336 Reported and signed by: Alisa Alcocer M.D. CC: Lisa Amaya MD Technologist:RT Elaine(R)(CT); ... CTDI: DLP: Trnscb Date/Time: 10/27/2020 (2336) [email or web address] Orig Print D/T: S: 10/27/2020 (6134) PAGE 2 Signed Report- CT ANGIO [id number] 23:36:00 [facility] : 1976 Sex: F Name: GIOVANNY CALDERÓN [facility] : 1976 Age/S: 44 / F [address] [address] Unit #: [id number] Loc: [place] [address] Phys: Lisa Amaya MD Acct: [id number] Dis Date: Status: REG ER PHONE #: [phone] Exam Date: 10/27/2020 233 FAX #: Reason: left side weakness EXAMS: CPT: [id number] CT ANGIO HEAD 25096 EXAM: - CT ANGIO HEAD, - CT ANGIO NECK LOCATION: H57 HISTORY: left side weakness TECHNIQUE: CTA head: Axial CT images were obtained from the skull base to the vertex after intravenous contrast utilizing CTA protocol. Coronal and sagittal maximum intensity projection images are provided. CTA neck: Axial CT images were obtained from the aortic arch to the skull base after intravenous contrast utilizing CTA protocol. Coronal and sagittal maximum intensity projection images are provided. This exam was performed [...] The petrous, cavernous, and clinoid internal carotid arteries do not demonstrate hemodynamically significant stenoses. The anterior and middle cerebral arteries do not demonstrate hemodynamically significant stenoses. Ada of both vertebral arteries into the basilar. Basilar artery and posterior cerebral arteries are do not demonstrate hemodynamically significant stenoses. No aneurysm is seen. The dural venous sinuses are patent. PAGE 1 Signed Report (CONTINUED) Name: GIOVANNY CALDERÓN [place] : 1976 Age/S: 44 / F [address] [address] Unit #: [id number] Loc: [place] [address] Phys: Lisa Amaya MD Acct: [id number] Dis Date: Status: REG ER PHONE #: [phone] Exam Date: 10/27/2020 2330 FAX #: Reason: left side weakness EXAMS: CPT: [id number] CT ANGIO HEAD [address] <Continued> CTA neck: The origins of the great vessels from the aortic arch do not demonstrate hemodynamically significant stenoses. The bilateral common carotid arteries and bulbs are without hemodynamically significant stenosis. The internal carotid arteries do not demonstrate hemodynamically significant stenosis. No pseudoaneurysm or dissection. Thevertebral arteries are codominant. No incidental soft tissue findings. IMPRESSION: 1. No hemodynamica lly significant stenoses of the cervical carotid or vertebral arteries. 2. Evaluation of the intracranial vessels is limited by extensive venous contamination. No obvious large vessel occlusion is identified. MRA may be considered for further evaluation if clinically indicated. 3. No aneurysm or dissection. Findings were communicated to Lisa Amaya MD by telephone on 10/27/2020 11:36 PM. at 2336 Reported and signed by: Alisa Alcocer M.D. CC: Lisa Amaya MD Technologist:Le Castaneda, RT(R)(CT) CTDI: DLP: Trnscb Date/Time: 10/27/2020 (3944) [email or web address] Orig Print D/T: S: 10/27/2020 (0283) PAGE 2 Signed ReportCOVID 19 INHOUSE [id number] 23:11:00 Test Item Value Reference Range Interpretation Comments COVID 19 INHOUSE AG NEGATIVE Negative Per manu facturer, (test code = negative result s should [id number]) be treated aspr esumptive and, if inconsi stent with clinical signs andsymptoms or necessary for patient man agement, should betested with an alternative mol ecular assay. Negative resultsdo not preclude SA RS-CoV-2 infection and s hould not be usedas the s ole basis for patient man agement decisions. Nega tive results should be considered in t he context of apatient's r ecent exposures, hist ory, presence of cli nicalsigns and symptoms co nsistent with COVID-19. BASIC METABOLIC [id number] 22:48:00 Test Item Value Reference Range Interpretation [...] 8.5 MG/DL 8.5-10.1 N Completed by Nursing: [id number] 22:48:00 Test Item Value Reference Range Interpretation [...] ruth yby method. Completed by Nursing: NOPROTHROMBIN [id number] 22:41:00 Test Item Value Reference Range Interpretation Comments PT PATIENT (test code = PTP) 11.2 SECONDS 9.3-12.9 N INTERNATIONAL NORMAL RATIO 1.00 INR Unit 0.8-1.2 N (test code = INR) THROMBOPLASTIN TIME [id number] 22:41:00 Test Item Value Reference Range Interpretation Comments THROMBOPLASTIN TIME PARTIAL 32.7 SECONDS 26-35 N (test code = PTT) GLUCOSE BEDSIDE [id number] 22:18:00 Test Item Value Reference Range Interpretation Comments GLUCOSE BEDSIDE TESTING (test code 190 mg/dL 70-110 H = GLUBED) CBC W/O [id number] 22:18:00 Test Item Value Reference Range Interpretation [...] 7.0-10.5 H MPV) - CT HEAD/BRAIN W/O [id number] 22:14:00 [facility] : 1976 Sex: F Name: GIOVANNY CALDERÓN [facility] : 1976 Age/S: 44 / F [address] Unit #: [id number] Loc: [place] [address] Phys: Lisa Amaya MD Acct: [id number] Dis Date: Status: PRE ER PHONE #: [phone] Exam Date: 10/27/20206 FAX #: Reason: code stroke EXAMS: CPT: [id number] CT HEAD/BRAIN W/O CONT 10266 EXAM: CT Head without contrast Location: A1 HISTORY: Possible stroke, code stroke COMPARISON: None available. TECHNIQUE: Multiple transaxial images of the brain were obtained without intravenous contrast. Images were reformatted to create coronal and sagittal reconstructions. One or more of the following dose reduction techniques were used: Automated exposure control, adjustment of the mA and/or kV according to patient size, and/or utilization of iterative reconstruction technique. DLP: 804 mGy-cm. FINDINGS: There is no acute intracranial hemorrhage. There is no mass, mass effect, midline shift or extra- axial fluid collection. Brain parenchymal volume and ventricular caliber are wi thin normal limits. Wan-white differentiation is maintained. There is no evidence for acute major vessel infarct. Paranasal sinuses, mastoid air cells and visualized orbital contents are within normallimits. Osseous structures are within normal limits. IMPRESSION: No acute intracranial abnormality. No acute hemorrhage, mass lesion or infarct. Preliminary findings were given to Dr. Amaya at 2211 hours on 10/27/2020 FOR INTERNAL CODING PURPOSES ONLY RESULT CODE: CVR PAGE 1 Signed Report (CONTINUED) Name: GIOVANNY CALDERÓN [facility] : 1976 Age/S: 44 / F [address] [address] Unit #: [id number] Loc: [place] [address] Phys: Lisa Amaya MD Acct: [id number] Dis Date: Status: PRE ER PHONE #: [phone] Exam Date: 10/27/20202208 FAX #: Reason: code stroke EXAMS: CPT: [id number] CT HEAD/BRAIN W/O CONT 46759 <Continued> at 2214 Reported and signed by: Gene Kaur M.D. CC: Lisa Amaya MD Technologist:RT Elaine(Nirmal)(CT); ... CTDI: DLP: Trnscb Date/Time: 10/27/2020 (2213) [email or web address] Orig Print D/T: S: 10/27/2020 (2216) PAGE 2 Signed ReportSURGICAL [id number] 09:03:00 Test Item Value Reference Range Interpretation Comments SURGICAL SPECIMENS (test code = SURG) --------RUN DATE: 05/07/20 [facility] - LAB PAGE 1 RUN TIME: 902 Specimen Inquiry RUN USER: INTERFACE --------PATIENT: GIOVANNY CALDERÓN LOC: [place] U #: [id number] AGE/SX: 44/F ROOM: RE05/02/20REG DR: Giuliano Abdullahi MD : 75 BED: DIS: STATUS: [facility] TLOC: -------- SPEC #: [id number] RECD: 05/02/20 STATUS: JACQUELINE MARTE #: [id number] INA: 05/02/20 [facility] DR: Giuliano Abdullahi MD ENTERED: 05/02/20 SP TYPE: SURG OTHR DR: Candace Dhaliwal ORDERED: PATHGM4/2, PATH SPEC, H E STAIN/2 [...] and its performance characteristics determined by the [facility]. It has not been cleared or approved by the US Food and Drug Administration. The FDA has determined that such clearance or approval is not necessary. The test is used for clinical purposes. It should not be regarded as investigational or for research. [facility] is certified under CLIA-88 (Clinical Laboratory Improvement [...] METAPLASIA, DYSPLASIA, OR MALIGNANCY IS IDENTIFIED CPT: 26290 x2, 36519 CONTINUED ON NEXT PAGE --------RUN DATE: 05/07/20 [facility] - LAB PAGE 2 RUN TIME: 902 Specimen Inquiry RUN USER: INTERFACE --------SPEC #: [id number] PATIENT: GIOVANNY CALDERÓN #[id number] (Continued) GROSS DESCRIPTION Received are two containers [...] MD 05/07/20 0903 -------- END OF REPORT [id number] 15:00:00 Test Item Value Reference Range Interpretation Comments GLUBED (test code = GLUBED) 148 MG/DL 70-105 H COVID 19 Asymptomatic IH [id number] 13:12:00 Test Item Value Reference Range Interpretation [...] clinical signs and symptomsconsist ent with COVID-19. [id number] 18:47:00 Test Item Value Reference Range Interpretation Comments Hgb (test code = Hgb) 13.0 12.0-16.0 [facility]DhonldvEANTSVUELS5999-04-22 18:47:00 Test Item Value Reference Range Interpretation Comments Platelet (test code = Platelet) 197 133-450 [facility] HospitalCgorkkdJHDLRJRBGK6502-77-95 18:47:00 Test Item Value Reference Range Interpretation Comments MPV (test code = MPV) 10.2 7.4-10.4 [facility] CenterJkihytiXKCTEBPNOM5702-59-12 18:47:00 Test Item Value Reference Range Interpretation Comments RBC (test code = RBC) 4.59 4.20-5.40 [facility] HospitalVqprkgaHWCRFZBVGY8032-45-80 18:47:00 Test Item Value Reference Range Interpretation Comments WBC (test code = WBC) 7.4 3.7-10.4 [facility] [id number] 18:47:00 Test Item Value Reference Range Interpretation Comments Hgb A1C (test code = Hgb A1C) 6.2 [facility] [id number] 18:47:00 Test Item Value Reference Range Interpretation Comments eGFR (test code = eGFR) 100 [facility]2019-04-03 18:47:00 Test Item Value Reference Range Interpretation Comments Globulin (test code = Globulin) 3.8 2.7-4.2 [facility]2019-04-03 18:47:00 Test Item Value Reference Range Interpretation Comments A/G Ratio (test code = A/G Ratio) 1.0 1 0.7-1.6 [facility]2019-04-03 18:47:00 Test Item Value Reference Range Interpretation Comments Bili Total (test code = Bili Total) 0.3 0.2-1.3 [facility]2019-04-03 18:47:00 Test Item Value Reference Range Interpretation Comments AGAP (test code = AGAP) 10.8 10.0-20.0 [facility]2019-04-03 18:47:00 Test Item Value Reference Range Interpretation Comments B/C Ratio (test code = B/C Ratio) 23 1 6-25 [facility]2019-04-03 18:47:00 Test Item Value Reference Range Interpretation Comments Potassium Lvl (test code = Potassium 3.8 3.5-5.1 Lvl) [facility]2019-04-03 18:47:00 Test Item Value Reference Range Interpretation Comments Sodium Lvl (test code = Sodium Lvl) 143 135-145 [facility]2019-04-03 18:47:00 Test Item Value Reference Range Interpretation Comments Chloride Lvl (test code = Chloride Lvl) 108 95-109 [facility] [id number] 18:47:00 Test Item Value Reference Range Interpretation Comments AST (test code = AST) 23 See_Comment [Auto mated message] The system which ge nerated this result transmit octaviano reference range : <=37. The reference range was not used to interpr et this result as laurie l/abnormal. [facility] HospitalPhotozeenNOVANT HE[facility] PARK [id number] 18:47:00 Test Item Value Reference Range Interpretation Comments Alk Phos (test code = Alk Phos) 88 39-136 [facility] HospitalMailgun [id number] 18:47:00 Test Item Value Reference Range Interpretation Comments ALT (test code = ALT) 21 See_Comment [Auto mated message] The system which ge nerated this result transmit octaviano reference range : <=65. The reference range was not used to interpr et this result as laurie l/abnormal. [facility] HospitalPhotozeenNOVANT [facility] MED[facility] PARK [id number] 18:47:00 Test Item Value Reference Range Interpretation Comments CO2 (test code = CO2) 28 24-32 [facility] HospitalMail[facility] [id number] 18:47:00 Test Item Value Reference Range Interpretation Comments Calcium Lvl (test code = Calcium Lvl) 8.8 8.5-10.5 [facility] HospitalMail[facility] [id number] 18:47:00 Test Item Value Reference Range Interpretation Comments Albumin Lvl (test code = Albumin Lvl) 3.7 3.5-5.0 [facility] HospitalPhotozeenNOVANT [facility] PARK [id number] 18:47:00 Test Item Value Reference Range Interpretation Comments Total Protein (test code = Total 7.5 6.4-8.4 Protein) [facility] HospitalPhotozeenNOV[facility] PARK [id number] 18:47:00 Test Item Value Reference Range Interpretation Comments Glucose Lvl (test code = Glucose Lvl) 84 70-99 [facility] HospitalMailgun [id number] 18:47:00 Test Item Value Reference Range Interpretation Comments Creatinine Lvl (test code = Creatinine 0.74 0.50-1.40 Lvl) [facility] HospitalPhotozeenNOVANT [facility] MED[facility] PARK [id number] 18:47:00 Test Item Value Reference Range Interpretation Comments BUN (test code = BUN) 17 7-22 [facility] HospitalKpbwbnbPGLLRAJPCR1292-33-13 18:47:00 Test Item Value Reference Range Interpretation Comments Eosinophils # (test code 0.1 See_Comment [A utomated message] The = Eosinophils #) system whic h generated this result tra nsmitted reference range : <=0.5. The reference r gulshan was not used to int erpret this result as normal/abnormal . [facility] HospitalZtkmgufBWXPTZOAGT2354-74-94 18:47:00 Test Item Value Reference Range Interpretation Comments Monocytes (test code = Monocytes) 4.4 2.0-12.[address] [facility] HospitalDgtioovOEBHWLHPFF8364-42-33 18:47:00 Test Item Value Reference Range Interpretation Comments Eosinophils (test code = 1.6 See_Comment [A utomated message] The Eosinophils) system which ge nerated this result tra nsmitted reference range : <=4.0. The reference r gulshan was not used to int erpret this result as normal/abnormal . [facility] HospitalPtofgadZBAWFEYIOV8212-18-36 18:47:00 Test Item Value Reference Range Interpretation Comments Basophils (test code = 0.2 See_Comment [Aut omated message] The Basophils) system which ge nerated this result tra nsmitted reference range : <=1.0. The reference r gulshan was not used to int erpret this result as normal/abnormal . [facility] HospitalQvkvzxiOFQREWEMJH1168-01-02 18:47:00 Test Item Value Reference Range Interpretation Comments Lymphocytes (test code = Lymphocytes) 23.0 20.0-40.[address] [facility] HospitalGuxylegHTAWSOIZQX4168-02-48 18:47:00 Test Item Value Reference Range Interpretation Comments Neutrophils # (test code = Neutrophils 5.3 1.5-8.1 #) [facility] HospitalUxuqrfoVWIJYFKMPL0381-91-73 18:47:00 Test Item Value Reference Range Interpretation Comments Lymphocytes # (test code = Lymphocytes 1.7 1.0-5.5 #) [facility] HospitalHinuqoeRZBFDWQVWY5280-47-33 18:47:00 Test Item Value Reference Range Interpretation Comments Monocytes # (test code 0.3 See_Comment [Aut omated message] The = Monocytes #) system which generated this result tra nsmitted reference range : <=0.8. The reference r gulshan was not used to int erpret this result as normal/abnormal . [facility] HospitalMabhouxQIKZEUTVUY7712-66-72 18:47:00 Test Item Value Reference Range Interpretation Comments Segs (test code = Segs) 70.8 45.0-75.0 [facility] HospitalYirpeylTNKANJOHSZ2082-70-04 18:47:00 Test Item Value Reference Range Interpretation Comments MCHC (test code = MCHC) 32.7 32.0-36.0 [facility] HospitalRugxjngAALJZRRJHW5957-88-60 18:47:00 Test Item Value Reference Range Interpretation Comments Hct (test code = Hct) 39.9 36.0-48.0 [facility] HospitalFclrmqdRWUYSOYIME3965-12-08 18:47:00 Test Item Value Reference Range Interpretation Comments MCV (test code = MCV) 87.0 80.0-98.[address] [facility] HospitalBsjqshnGUOAXSHXCZ2132-33-38 18:47:00 Test Item Value Reference Range Interpretation Comments MCH (test code = MCH) 28.5 pg 27.0-31.[address] [facility] H[id number] 18:47:00 Test Item Value Reference Range Interpretation Comments RDW (test code = RDW) 14.8 11.5-14.5 [facility] HospitalmioFOR[facility] CHEST, 2 [id number] 15:49:00Reason for exam:- >coughShould this be performed at the bedside?->NoFINAL REPORT Chest, PA and lateral. History: Cough. Comparison: 12/07/2017. Discu ssion: Mild cardiomegaly. The lungs are clear without evidence of consolidation or effusion. There are no acute osseous abnormalities. The soft tissues are unremarkable. IMPRESSION: No acute cardiopulmonary abnormality. Signed: Joseph Vang MDReport Verified Date/Time: 08/21/2018 15:49:59 Reading [facility] [id number] 10:53:00 Test Item Value Reference Range Interpretation Comments AGAP (test code = AGAP) 11.8 10.0-20.0 [facility]icsJsfwxufRQIPUPAOILDH2267-58-44 10:53:00 Test Item Value Reference Range Interpretation Comments Chloride Lvl (test code = Chloride Lvl) 109 95-109 [facility] ClinicsOiwbtxgABEQMABQRACX1943-59-12 10:53:00 Test Item Value Reference Range Interpretation Comments Potassium Lvl (test code = Potassium 3.8 3.5-5.1 Lvl) [facility] SystemOfcpvozXYAFDLOCNVRD7501-44-35 10:53:00 Test Item Value Reference Range Interpretation Comments Sodium Lvl (test code = Sodium Lvl) 145 135-145 [facility] SystemQpcxawtAIXGLNJIYOKN0831-51-91 10:53:00 Test Item Value Reference Range Interpretation Comments Calcium Lvl (test code = Calcium Lvl) 8.1 8.5-10.5 [facility] SystemQtplrnsALUQQHNYRITT8859-87-53 10:53:00 Test Item Value Reference Range Interpretation Comments Creatinine Lvl (test code = Creatinine 0.51 0.50-1.40 Lvl) [facility] SystemHimvshaOGDJCOSAMSKE2616-44-13 10:53:00 Test Item Value Reference Range Interpretation Comments eGFR (test code = eGFR) 118 [facility] SystemJvblxwzXNRADBXKJZYC0282-50-12 10:53:00 Test Item Value Reference Range Interpretation Comments CO2 (test code = CO2) 28 24-32 [facility] SystemLapezkrMQEFTXAQTNDW8372-86-25 10:53:00 Test Item Value Reference Range Interpretation Comments BUN (test code = BUN) 11 7-22 [facility] SystemRcatsobGMANRMMFIBPA7667-70-06 10:53:00 Test Item Value Reference Range Interpretation Comments Glucose Lvl (test code = Glucose Lvl) 104 70-[address] [facility] HospitalOxwzixqLOLFQTVTPD4158-30-92 10:53:00 Test Item Value Reference Range Interpretation Comments Lymphocytes # (test code = Lymphocytes 1.1 1.0-5.5 #) [facility] HospitalOheltazMTIGNEKYLK9516-87-67 10:53:00 Test Item Value Reference Range Interpretation Comments Neutrophils # (test code = Neutrophils 5.5 1.5-8.1 #) [facility] HospitalRyggyflRMMYYHSKRM5848-57-22 10:53:00 Test Item Value Reference Range Interpretation Comments Eosinophils # (test code 0.1 See_Comment [A utomated message] The = Eosinophils #) system whic h generated this result tra nsmitted reference range : <=0.5. The reference r gulshan was not used to int erpret this result as normal/abnormal . [facility]HmtdeqzDRBAFKXSOK1112-56-77 10:53:00 Test Item Value Reference Range Interpretation Comments Monocytes # (test code 0.3 See_Comment [Aut omated message] The = Monocytes #) system which generated this result tra nsmitted reference range : <=0.8. The reference r gulshan was not used to int erpret this result as normal/abnormal . [facility] HospitalZhpldusEPXUQKKXCU8470-11-88 10:53:00 Test Item Value Reference Range Interpretation Comments Lymphocytes (test code = Lymphocytes) 15.3 20.0-40.[address] HospitalLeqhrdoOIUNUNPLII0576-37-82 10:53:00 Test Item Value Reference Range Interpretation Comments Segs (test code = Segs) 78.5 45.0-75.[address] [facility] HospitalIoeuyrrTREILCEKDB8396-63-58 10:53:00 Test Item Value Reference Range Interpretation Comments Eosinophils (test code = 1.2 See_Comment [A utomated message] The Eosinophils) system which ge nerated this result tra nsmitted reference range : <=4.0. The reference r gulshan was not used to int erpret this result as normal/abnormal . [facility] HospitalTmbhjihCGZAVWRDOW3065-04-95 10:53:00 Test Item Value Reference Range Interpretation Comments Monocytes (test code = Monocytes) 4.3 2.0-12.[address] [facility] HospitalPbszfaqUNICACUHXM7752-87-88 10:53:00 Test Item Value Reference Range Interpretation Comments Basophils (test code = 0.7 See_Comment [Aut omated message] The Basophils) system which ge nerated this result tra nsmitted reference range : <=1.0. The reference r gulshan was not used to int erpret this result as normal/abnormal . [facility] HospitalDfnyhakUORNZQGUOB7689-88-63 10:53:00 Test Item Value Reference Range Interpretation Comments MCHC (test code = MCHC) 32.5 32.0-36.[address] HospitalDhserjwKJHANVYZER8072-20-23 10:53:00 Test Item Value Reference Range Interpretation Comments RDW (test code = RDW) 15.1 11.5-14.[address] [facility] HospitalJyvjxfoTIWHQAEQSS0708-59-54 10:53:00 Test Item Value Reference Range Interpretation Comments Platelet (test code = Platelet) 188 133-[address] [facility] HospitalQjgxunpQYNTQLJDXY4484-69-41 10:53:00 Test Item Value Reference Range Interpretation Comments MPV (test code = MPV) 9.4 7.4-10.[address] [facility] HospitalTxogmqqQOTXUYBZVU6909-93-31 10:53:00 Test Item Value Reference Range Interpretation Comments RBC (test code = RBC) 3.87 4.20-5.[address] [facility] [facility] HospitalYavqiiyXLOLWQQQDW8349-86-66 10:53:00 Test Item Value Reference Range Interpretation Comments Hgb (test code = Hgb) 11.0 12.0-16.[address] [facility] HospitalSmxodsvKUAJRNXDLD6010-37-97 10:53:00 Test Item Value Reference Range Interpretation Comments MCV (test code = MCV) 87.6 80.0-98.[address] [facility] HospitalQbwszuyHMQSUMLWXY1747-59-20 10:53:00 Test Item Value Reference Range Interpretation Comments MCH (test code = MCH) 28.5 pg 27.0-31.[address] [facility] [facility] HospitalMxawfroJPTSMZZXYR2773-95-52 10:53:00 Test Item Value Reference Range Interpretation Comments Hct (test code = Hct) 33.9 36.0-48.[address] [facility] HospitalBzwgnlbCDZQVGEWLJ2823-47-06 10:53:00 Test Item Value Reference Range Interpretation Comments WBC (test code = WBC) 7.0 3.7-10.4 [facility]2019-01-01 11:52:00 Test Item Value Reference Range Interpretation Comments Alk Phos (test code = Alk Phos) 87 39-136 [facility]2019-01-01 11:52:00 Test Item Value Reference Range Interpretation Comments eGFR (test code = eGFR) 110 [facility]2019-01-01 11:52:00 Test Item Value Reference Range Interpretation Comments Chloride Lvl (test code = Chloride Lvl) 107 95-109 [facility]2019-01-01 11:52:00 Test Item Value Reference Range Interpretation Comments Sodium Lvl (test code = Sodium Lvl) 142 135-145 [facility]2019-01-01 11:52:00 Test Item Value Reference Range Interpretation Comments Potassium Lvl (test code = Potassium 4.0 3.5-5.1 Lvl) [facility]2019-01-01 11:52:00 Test Item Value Reference Range Interpretation Comments Creatinine Lvl (test code = Creatinine 0.63 0.50-1.40 Lvl) [facility]2019-01-01 11:52:00 Test Item Value Reference Range Interpretation Comments ALT (test code = ALT) 18 See_Comment [Auto mated message] The system which ge nerated this result transmit octaviano reference range : <=65. The reference range was not used to interpr et this result as laurie l/abnormal. [facility]2019-01-01 11:52:00 Test Item Value Reference Range Interpretation Comments Bili Total (test code = Bili Total) 1.0 0.2-1.3 [facility]2019-01-01 11:52:00 Test Item Value Reference Range Interpretation Comments AST (test code = AST) 29 See_Comment [Auto mated message] The system which ge nerated this result transmit octaviano reference range : <=37. The reference range was not used to interpr et this result as laurie l/abnormal. [facility]2019-01-01 11:52:00 Test Item Value Reference Range Interpretation Comments Total Protein (test code = Total 7.5 6.4-8.4 Protein) [facility]2019-01-01 11:52:00 Test Item Value Reference Range Interpretation Comments Albumin Lvl (test code = Albumin Lvl) 3.2 3.5-5.0 [facility]2019-01-01 11:52:00 Test Item Value Reference Range Interpretation Comments CO2 (test code = CO2) 25 24-32 [facility]2019-01-01 11:52:00 Test Item Value Reference Range Interpretation Comments BUN (test code = BUN) 13 7-22 [facility]2019-01-01 11:52:00 Test Item Value Reference Range Interpretation Comments Glucose Lvl (test code = Glucose Lvl) 143 70-99 [facility]2019-01-01 11:52:00 Test Item Value Reference Range Interpretation Comments Calcium Lvl (test code = Calcium Lvl) 8.3 8.5-10.5 [facility]2019-01-01 11:52:00 Test Item Value Reference Range Interpretation Comments B/C Ratio (test code = B/C Ratio) 21 1 6-25 [facility]2019-01-01 11:52:00 Test Item Value Reference Range Interpretation Comments Globulin (test code = Globulin) 4.3 2.7-4.2 [facility]2019-01-01 11:52:00 Test Item Value Reference Range Interpretation Comments A/G Ratio (test code = A/G Ratio) 0.7 1 0.7-1.6 [facility]2019-01-01 11:52:00 Test Item Value Reference Range Interpretation Comments AGAP (test code = AGAP) 14.0 10.0-20.[address] [facility] HospitalMvwukyeLIZCGQOCDL3571-85-96 11:52:00 Test Item Value Reference Range Interpretation Comments Hgb (test code = Hgb) 12.6 12.0-16.[address] [facility] HospitalSaqapclAESTGBOCJR2370-99-50 11:52:00 Test Item Value Reference Range Interpretation Comments MCV (test code = MCV) 88.3 80.0-98.[address] [facility] HospitalEjvjrruWNHKQARDXO9850-10-09 11:52:00 Test Item Value Reference Range Interpretation Comments MCHC (test code = MCHC) 32.8 32.0-36.[address] [facility] HospitalSvbfeloSYIYDWFUOU6877-27-66 11:52:00 Test Item Value Reference Range Interpretation Comments MCH (test code = MCH) 29.0 pg 27.0-31.[address] [facility] HospitalXusxylaIVUOBIQZQF6312-59-91 11:52:00 Test Item Value Reference Range Interpretation Comments RBC (test code = RBC) 4.34 4.20-5.[address] [facility] HospitalGqamasrUWTRBWERZI2814-53-42 11:52:00 Test Item Value Reference Range Interpretation Comments WBC (test code = WBC) 9.2 3.7-10.[address] [facility] HospitalPxppeqdXIUVQPNNLS3723-11-44 11:52:00 Test Item Value Reference Range Interpretation Comments MPV (test code = MPV) 10.1 7.4-10.[address] [facility] [facility] HospitalNtizfbkMTSYWLZLSW6249-75-39 11:52:00 Test Item Value Reference Range Interpretation Comments Platelet (test code = Platelet) 211 133-[address] [facility] [facility] [facility] HospitalViqsuwdOLZNMPWRWS6675-35-30 11:52:00 Test Item Value Reference Range Interpretation Comments RDW (test code = RDW) 15.2 11.5-14.[address] [facility] HospitalQtnovdvTCAKHVGAEU1161-26-51 11:52:00 Test Item Value Reference Range Interpretation Comments Hct (test code = Hct) 38.3 36.0-48.[address] [facility] HospitalHlwaemlYTDLTDYMZE0577-50-94 11:52:00 Test Item Value Reference Range Interpretation Comments PTT (test code = PTT) 37.5 s 22.9-35.[address] [facility] [facility] HospitalEeyqmqaCUBMMEWYRD7099-13-49 11:52:00 Test Item Value Reference Range Interpretation Comments PT (test code = PT) 15.4 s 12.0-14.[address] [facility] [facility] HospitalYztwmeoAMEOJXBLBN9273-72-54 11:52:00 Test Item Value Reference Range Interpretation Comments INR (test code = INR) 1.24 1 0.85-1.[address] [facility] [facility] HospitalFaboxmqAAHNMWXFLH1177-13-39 11:52:00 Test Item Value Reference Range Interpretation Comments Basophils (test code = 0.2 See_Comment [Aut omated message] The Basophils) system which ge nerated this result tra nsmitted reference range : <=1.0. The reference r gulshan was not used to int erpret this result as normal/abnormal . [facility] HospitalLfhhafvRKLYMXQNVH8431-66-45 11:52:00 Test Item Value Reference Range Interpretation Comments Eosinophils (test code = 0.3 See_Comment [A utomated message] The Eosinophils) system which ge nerated this result tra nsmitted reference range : <=4.0. The reference r gulshan was not used to int erpret this result as normal/abnormal . [facility] HospitalLxexpebLYREBDSLHN1014-88-24 11:52:00 Test Item Value Reference Range Interpretation Comments Monocytes (test code = Monocytes) 3.7 2.0-12.[address] [facility] HospitalZwqlpimUIWOUVSFIU9969-33-98 11:52:00 Test Item Value Reference Range Interpretation Comments Lymphocytes (test code = Lymphocytes) 13.6 20.0-40.[address] [facility] HospitalTzyeeooYMKVPLQVMA7922-55-88 11:52:00 Test Item Value Reference Range Interpretation Comments Neutrophils # (test code = Neutrophils 7.6 1.5-8.1 #) [facility] HospitalUupskgpFEZMOQUFJI2502-63-23 11:52:00 Test Item Value Reference Range Interpretation Comments Lymphocytes # (test code = Lymphocytes 1.2 1.0-5.5 #) [facility] HospitalGrgridiWWTOPORCSS5463-35-85 11:52:00 Test Item Value Reference Range Interpretation Comments Monocytes # (test code 0.3 See_Comment [Aut omated message] The = Monocytes #) system which generated this result tra nsmitted reference range : <=0.8. The reference r gulshan was not used to int erpret this result as normal/abnormal . [facility] HospitalYupaussCKUZBYTKXY2641-06-75 11:52:00 Test Item Value Reference Range Interpretation Comments Segs (test code = Segs) 82.2 45.0-75.0 [facility]FmxznkuEJVYAT2606-07-33 11:52:00 Test Item Value Reference Range Interpretation Comments CHD Risk (test code = CHD Risk) 2.88 1 3.90-5.80 [facility] YlfdrbaCYMXNK4822-69-08 11:52:00 Test Item Value Reference Range Interpretation Comments VLDL (test code = VLDL) 18 1 [facility] HospitalKfqfkgpFGARFS1191-46-17 11:52:00 Test Item Value Reference Range Interpretation Comments HDL (test code = HDL) 48 [facility] HospitalPragqkzXMZSWP6422-97-60 11:52:00 Test Item Value Reference Range Interpretation Comments LDL (Calculated) (test code = LDL 72 (Calculated)) [facility] HospitalVeqkqaaJADRVT9995-78-74 11:52:00 Test Item Value Reference Range Interpretation Comments Trig (test code = Trig) 92 [facility] HospitalPxyeeweGWLIPG4927-79-55 11:52:00 Test Item Value Reference Range Interpretation Comments Chol (test code = Chol) 138 [facility] FFFIFIUNV2742-38-43 11:52:00 Test Item Value Reference Range Interpretation Comments Hgb A1C (test code = Hgb A1C) 6.1 [facility]ann[facility] AND [id number] 11:52:00 Test Item Value Reference Range Interpretation Comments UA Ketones (test code = UA Ketones) Negative [facility] AND [id number] 11:52:00 Test Item Value Reference Range Interpretation Comments UA Bili (test code = Negative *NA*(06/13/18 UA Bili) 5:52 AM) [facility] [id number] 11:52:00 Test Item Value Reference Range Interpretation Comments UA Blood (test code = Moderate *ABN*(06/13/18 UA Blood) 5:52 AM) [facility] AND [id number] 11:52:00 Test Item Value Reference Range Interpretation Comments UA Nitrite (test code Negative (06/13/18 5:52 = UA Nitrite) AM) [facility] AND [id number] 11:52:00 Test Item Value Reference Range Interpretation Comments UA Urobilinogen (test code = UA <=1.0 mg/dL 0.1-1.0 Urobilinogen) [facility] [id number] 11:52:00 Test Item Value Reference Range Interpretation Comments UA Sq Epi (test code = UA Sq Occasional /LPF Epi) [facility] AND [id number] 11:52:00 Test Item Value Reference Range Interpretation Comments UA WBC (test code = 1 See_Comment [Automa octaviano message] The UA WBC) system which ge nerated this result transmit octaviano reference range : <=5. The reference range was not used to interpr et this result as laurie l/abnormal. [facility] AND [id number] 11:52:00 Test Item Value Reference Range Interpretation Comments UA Leuk Est (test Negative (06/13/18 5:52 code = UA Leuk Est) AM) [facility] AND [id number] 11:52:00 Test Item Value Reference Range Interpretation Comments UA Bacteria (test code = UA Occasional /HPF Bacteria) [facility] AND [id number] 11:52:00 Test Item Value Reference Range Interpretation Comments UA RBC (test code = 7 See_Comment [Automa octaviano message] The UA RBC) system which ge nerated this result transmit octaviano reference range : <=2. The reference range was not used to interpr et this result as laurie l/abnormal. [facility] AND [id number] 11:52:00 Test Item Value Reference Range Interpretation Comments UA pH (test code = UA pH) 6.0 1 5.0-8.0 [facility] AND [id number] 11:52:00 Test Item Value Reference Range Interpretation Comments UA Turbidity (test code = Clear (06/13/18 5:52 UA Turbidity) AM) [facility] AND [id number] 11:52:00 Test Item Value Reference Range Interpretation Comments UA Color (test code = UA Color) Straw [facility] AND [id number] 11:52:00 Test Item Value Reference Range Interpretation Comments UA Protein (test code Negative (06/13/18 5:52 = UA Protein) AM) [facility] AND [id number] 11:52:00 Test Item Value Reference Range Interpretation Comments UA Glucose (test code Negative *NA*(06/13/18 = UA Glucose) 5:52 AM) [facility] AND [id number] 11:52:00 Test Item Value Reference Range Interpretation Comments UA Spec Grav (test code = UA Spec 1.019 1 Grav) [facility]] FOLATE, [id number] 10:35:01 Test Item Value Reference Range Interpretation Comments Folate Level (test code = 2284-8) 14.1 ng/ml >=3.0 [facility]] VITAMIN D, 25-HYDROXY, LC/MS/[id number] 10:35:01 Test Item Value Reference Range Interpretation Comments Vitamin D, 25-OH, 17.5 ng/ml 30.0-100.0 Reference range is based Total (test code on recommen dations in the = Vitamin D, EndocrineSociet y Clinical 25-OH, Total) Practice Guide line (J Clin Endocrinol Xbmpi3554;96:19 11-1930) [facility][H] Vit [id number] 10:35:01 Test Item Value Reference Range Interpretation [...] the Food and Drug Administration. Performed At: [facility] [id number] [place], [place] [id number] ra Latasha GARCIA Ph:[phone] [facility][H] Vitamin E [id number] 10:35:01 Test Item Value Reference Range Interpretation Comments Alpha-Tocoph 7.9 mg/L 7.0-25.1 katrin (test code = Alpha-Tocoph katrin) Gamma-Tocoph 2.6 mg/L 0.5-5.5 Reference inter vals for alpha and katrin (test gamma-tocophero ldetermined from code = National Health and Nutrition Gamma-Tocoph ExaminationSurv ey, 6023-7684. katrin) Individuals wit h alpha-tocopherol levelsless than 5.0 mg/L are considered jammie min E deficient.This test was developed and its perform ance characteristics determined by [facility]. It has not been cleared orapproved by [facility] Food and Drug Administration. Performed At: [facility] [id number] [place], [place] [id number] Sanjai MD Ph:[phone] [facility]] CBC (INCLUDES DIFF/PLT)2018-01-06 10:09:01 Test Item Value Reference Range Interpretation Comments WBC (test code = 6690-2) 7.1 {K/CMM} 3.7-10.4 RBC (test code = 789-8) 4.30 {M/CMM} 4.20-5.40 Hgb (test code = 718-7) 12.3 g/dl 12.0-16.0 Hct (test code = 11770-6) 38.0 % 36.0-48.0 MCV (test code = 787-2) 88.4 fL 80.0-98.0 MCH (test code = 785-6) 28.5 pg 27.0-31.0 MCHC (test code = 786-4) 32.3 g/dl 32.0-36.0 RDW; Above High Threshold (test 15.9 % 11.5-14.5 code = 788-0) Platelet (test code = 53030-4) 222 {K/CMM} 133-450 Mean Platelet Volume; Above High 10.7 fL 7.4-10.4 Threshold (test code = 58776-8) [facility]] [id number] 10:09:01 Test Item Value Reference Range Interpretation Comments Segmented Neutrophils (test code 70.9 % 45.0-75.0 = 32958-5) Monocytes (test code = 44777-8) 4.2 % 2.0-12.0 Lymphocytes (test code = 08461-1) 22.0 % 20.0-40.0 Eosinophils (test code = 42262-9) 2.5 % 0.0-4.0 Basophils (test code = 706-2) 0.4 % 0.0-1.0 Segs-Bands # (test code = 5.0 {K/CMM} 1.5-8.1 49565-0) Lymphocytes # (test code = 1.6 {K/CMM} 1.0-5.5 34921-3) Monocytes # (test code = 07331-5) 0.3 {K/CMM} 0.0-0.8 Eosinophils # (test code = 0.2 {K/CMM} 0.0-0.5 75972-3) [facility][QL] PTH, INTACT (WITHOUT CALCIUM)2018-01-06 10:09:01 Test Item Value Reference Range Interpretation Comments Parathyroid Hormone Intact (test 64.9 pg/ml 18.4-80.1 code = 2731-8) [facility][QL] CMP [id number] 10:09:01 Test Item Value Reference Range Interpretation Comments Sodium Level 143 {mEq/l} 135-145 (test code = 2951-2) Potassium Level 4.6 {mEq/l} 3.5-5.1 (test code = 2823-3) Chloride Level 107 {mEq/l} 95-109 (test code = 5-0) Carbon Dioxide 30 {mEq/l} 24-32 (test code = 2027-9) AGAP (test code = 10.6 {mEq/l} 10.0-20.0 09299-3) Glucose Lvl; 108 mg/dl 70-99 Adult reference range Above High values reflect the Threshold (test clinical adri delinesof the code = 2345-7) [place] [employer]. Creatinine Lvl 0.60 mg/dl 0.50-1.40 (test code = 2160-0) Blood Urea 12 mg/dl 7-22 Nitrogen (test code = 3094-0) BUN/Creatinine 20 6-25 Ratio (test code = 3097-3) Total Protein 7.3 g/dl 6.4-8.4 (test code = 2885-2) Albumin Lvl (test 3.6 g/dl 3.5-5.0 code = 1751-7) Globulin (test 3.7 g/dl 2.7-4.2 code = 64121-0) A/G Ratio (test 1.0 0.7-1.6 code = 1759-0) Calcium Level 8.7 mg/dl 8.5-10.5 Total (test code = 45682-5) ALT (test code = 27 u/l 0-65 1743-4) AST (test code = 32 u/l 0-37 99702-0) Bili Total (test 0.4 mg/dl 0.2-1.3 code = 1974-2) Alk Phos (test 82 u/l 39-136 code = 1783-0) eGFR (test code = 113 The eGFR i s calculated 92935-2) {ML/MIN/1.7} using the CKD-E PI formula. In [...] s and those with seri ous co-morbid conditions.Ewndi ents with extremes in mus analy mass or diet.The gavino a above are obtained fr om the National Kidney Disease Education Progr am(NKDEP) which rgis quinteros recommends that when the eGFR is used in patientswith ex tremes of body mass index for purposes of dotty g dosing, the eGFR should be multiplied by t he estimated BMI. [facility]] FOLATE, [id number] 10:09:01 Test Item Value Reference Range Interpretation Comments Folate Level (test code = 2284-8) 11.3 ng/ml >=3.0 [facility]] IRON, [id number] 10:09:01 Test Item Value Reference Range Interpretation Comments Iron (test code = 2498-4) 59 ug/dL 30-160 [facility]] LIPID [id number] 10:09:01 Test Item Value Reference Range Interpretation Comments Chol (test code = 2093-3) 125 mg/dl <=199 Trig; Above High Threshold (test 154 mg/dl <=149 code = 2571-8) HDL Cholesterol; Below Low 36 mg/dl >=61 Threshold (test code = 2085-9) CHD Risk; Below Low Threshold (test 3.47 3.90-5.80 code = 58743-0) LDL (test code = 20717-4) 58 mg/dl <=99 VLDL (test code = VLDL) 31 [facility][QL] VITAMIN [id number] 10:09:01 Test Item Value Reference Range Interpretation Comments Vitamin B12 Level (test code = 655 pg/ml 254-1320 2132-9) [facility][QL] TSH, 3RD GENERATION W/REFLEX TO [id number] 10:09:01 Test Item Value Reference Range Interpretation Comments TSH (test code = 87471-3) 0.846 {uIU/ml} 0.360-3.740 [facility][QL] HEMOGLOBIN [id number] 10:09:01 Test Item Value Reference Range Interpretation Comments Hemoglobin A1c; Above High Threshold 6.4 % <=5.6 (test code = 4548-4) [facility]] VITAMIN D, 25-HYDROXY, LC/MS/[id number] 10:09:01 Test Item Value Reference Range Interpretation Comments Vitamin D, 25-OH, 16.6 ng/ml 30.0-100.0 Reference range is based Total (test code on recommen dations in the = Vitamin D, EndocrineSociet y Clinical 25-OH, Total) Practice Guide line (J Clin Endocrinol Igeys8699;96:19 11-1930) [facility][H] Vitamin E [id number] 10:09:01 Test Item Value Reference Range Interpretation Comments Alpha-Tocoph 5.7 mg/L 7.0-25.1 katrin (test code = Alpha-Tocoph katrin) Gamma-Tocoph 2.4 mg/L 0.5-5.5 Reference inter vals for alpha and katrin (test gamma-tocophero ldetermined from code = National Health and Nutrition Gamma-Tocoph ExaminationSurv ey, 6710-3570. katrin) Individuals wit h alpha-tocopherol levelsless than 5.0 mg/L are considered jammie min E deficient.This test was developed and its perform ance characteristics determined by [facility]. It has not been cleared orapproved by [facility] Food and Drug Administration. Performed At: [facility] [address] [place], [place] [id number] Murdock MD Ph :[phone] [facility][H] Vit [id number] 10:09:01 Test Item Value Reference Range Interpretation [...] the Food and Drug Administration. Performed At: [facility] [id number] zan Murdock MD Ph:[phone] [facility][QLH] VITAMIN B1, WHOLE [id number] 10:09:01 Test Item Value Reference Range Interpretation Comments Vitamin B1 128.4 66.5-200.0 This test was d eveloped and its Level (test nmol/L performance code = characteristics determined by Vitamin B1 [facility]. It has not been Level) cleared orappro mamie by the Food and Drug Administration. Performed At: [facility] [id number] zan Murdock MD Ph:[phone] [facility] [id number] 13:30:00 Test Item Value Reference Range Interpretation Comments CULTURE (BEAKER) (test code = 1095) No growth POCT-GLUCOSE [id number] 08:21:00 Test Item Value Reference Range Interpretation Comments POC-GLUCOSE METER 99 mg/dL 70-[address] [facility] 6720 (BEAKER) (test code = [facility] [address] 1538) POCT-GLUCOSE [id number] 06:14:00 Test Item Value Reference Range Interpretation Comments POC-GLUCOSE METER 105 mg/dL 70-110 TESTED AT [facility] 6720 (BEAKER) (test code = [facility] 1538) [address] BASIC METABOLIC [id number] 05:56:00 Test Item Value Reference Range Interpretation [...] PATIEN TS. CBC W/PLT COUNT & AUTO [id number] 05:15:00 Test Item Value Reference Range Interpretation [...] PERCENT (BEAKER) (test code = 2801) POCT-GLUCOSE [id number] 00:23:00 Test Item Value Reference Range Interpretation Comments POC-GLUCOSE METER 111 mg/dL 70-[address] [facility] 6720 (BEAKER) (test code = [facility] 1538) [address] MR, MRA, BRAIN, WITHOUT [id number] 20:13:00Reason for exam:->Ischemic Stroke EvaluationFINAL REPORT MRA Head CLINICAL HISTORY: Stroke TECHNIQUE: MRA of the head utilizing 3-D svck-jz-bgnnrm technique, with 3-D reconstructions. COMPARISON: None FINDINGS: There is no evidence of intracranial aneurysm, focal stenosis, or major branch vessel occlusion. There is a origin of the right posterior cerebral artery. IMPRESSION: No evidence for a major big [place] of [place] proximal branch vessel occlusion. MRA Neck CLINICAL HISTORY: Stroke TECHNIQUE: MRA of the neck utilizing 2-D and 3-D rkan-vf-ssueym technique, with 3-D reconstructions. COMPARISON: None FINDINGS: The carotid arteries in the neck are patent including their bifurcations. There is antegrade flow in the vertebral arteries in the neck. IMPRESSION: No evidence of hemodynamically significant stenosis in the cervical carotid or vertebral arteries by NASCET criteria. Signed: Madeleine Mendoza Verified Date/Time: 12/08/2017 20:13:50 Reading Location: [facility] Radiology Reading Room MR, MRA, NECK, WITHOUT IV [id number] 20:13:00Reason for exam:->Ischemic Stroke EvaluationFINAL REPORT MRA Head CLINICAL HISTORY: Stroke TECHNIQUE: MRA of the head utilizing 3-D ysnp-zy-dxmclx technique, with 3-D reconstructions. COMPARISON: None FINDINGS: There is no evidence of intracranial aneurysm, focal stenosis, or major branch vessel occlusion. There is a o rigin of the right posterior cerebral artery. IMPRESSION: No evidence for a major big sandy of [place] proximal branch vessel occlusion. MRA Neck CLINICAL HISTORY: Stroke TECHNIQUE: MRA of the neck utilizing 2-D and 3-D uuvc-pm-rcfrof technique, with 3-D reconstructions. COMPARISON: None FINDINGS: The carotid arteries in the neck are patent including their bifurcations. There is antegrade flow in the vertebral arteries in the neck. IMPRESSION: No evidence of hemodynamically significant stenosis in the cervical carotid or vertebral arteries by NASCET criteria. Signed: Madeleine Mendoza Verified Date/Time: 12/08/2017 20:13:50 Reading Location: [facility] Reading Room MR, BRAIN, WITHOUT [id number] 20:02:00Reason for exam:->StrokeWhat is the patient's sedation requirement?->No SedationFINAL REPORT MRI Brain without contrast Clinical History: Stroke Technique: MRIof the brain utilizing axial T2, FLAIR, GRE, DWI; sagittal and coronal T1-weighted images. Comparisons: CT 04/09/2017 Findings: There is no evidence of acute infarct or hemorrhage. There is no significant appearing white matter disease. There is no hydrocephalus, midline shift, or apparent mass effect. There are no extra-axial fluid collections. The craniocervical junction is preserved. The major intr acranial flow-voids appear patent. IMPRESSION: No evidence of acute infarct, hemorrhage, or hydrocephalus. Signed: Madeleine Mendoza MDReport Verified Date/Time: 12/08/2017 20:02:46 Reading Location: [facility] Radiology Reading Room POCT- GLUCOSE [id number] 15:23:00 Test Item Value Reference Range Interpretation Comments POC-GLUCOSE METER 106 mg/dL 70-110 TESTED AT [place] [address] ([facility]) (test code = KENNETH Kinney [facility] 1538) [address] HEMOGLOBIN [id number] 11:57:00 Test Item Value Reference Range Interpretation Comments HEMOGLOBIN A1C ([facility]) (test code = 6.6 % 4.3-6.1 H 368) FastingTROPONIN [id number] 09:50:00 Test Item Value Reference Range Interpretation Comments TROPONIN I ([facility]) (test code = 397) < [...] acidosis, acute neurological disease, and persistent tachyarrhythmia.POCT-GLUCOSE [id number] 06:23:00 Test Item Value Reference Range Interpretation Comments POC-GLUCOSE METER 110 mg/dL 70-110 TESTED AT [place] [address] ([facility]) (test code = NEGRITOVIC Kinney [facility] 1538) [address] POCT-GLUCOSE [id number] 06:15:00 Test Item Value Reference Range Interpretation Comments POC-GLUCOSE METER 149 mg/dL 70-110 H TESTED AT [place] [address] ([facility]) (test code = KENNETH Kinney [facility] 1538) [address] VITAMIN B12 AND [id number] 05:50:00 Test Item Value Reference Range Interpretation Comments VITAMIN B12 ([facility]) (test code = 688 pg/mL 213-724 774) FOLATE ([facility]) (test code = 362) 12.1 ng/mL >=7.0 TSH/FREE T4 IF [id number] 05:29:00 Test Item Value Reference Range Interpretation Comments THYROID STIMULATING HORMONE 0.66 uIU/mL 0.35-4.94 (BEAKER) (test code = 772) BASIC METABOLIC [id number] 05:11:00 Test Item Value Reference Range Interpretation [...] NOT APPLICABLE FOR DIALYSIS PATIEN TS. FastingLIPID [id number] 05:11:00 Test Item Value Reference Range Interpretation Comments TRIGLYCERIDES (BEAKER) 83 mg/dL Speci men slightly (test code = 540) hemolyzed CHOLESTEROL (BEAKER) 140 mg/dL Specime n slightly (test code = 631) hemolyzed HDL CHOLESTEROL (BEAKER) 38 mg/dL (test code = 976) LDL CHOLESTEROL 85 mg/dL CALCULATED (BEAKER) (test code = 633) Triglyceride Reference Range: Low Risk <150 Borderline 150-199 High Risk 200- 499 Very High Risk >=500Cholesterol Reference Range: Low Risk <200 Borderline 200-239 High Risk >240HDL Cholesterol Reference Range: Low Risk >=60 High Risk <40LDL Cholesterol Reference Range: Optimal <100 Near Optimal 100-129 Borderline 130-159 High 160-189 Very High >=190 FastingRAPID DRUG SCREEN, [id number] 04:34:00 Test Item Value Reference Range Interpretation [...] unconfirmed qualitative test result for the clinical managementof patients in emergency situations. Chain of custody not maintained. Some xnku-qjc-atsspnw medications, as well as adulterants, may cause inaccurate results. Clinical correlation should be applied. A more comprehensive drug screen or confirmation of a detected drug may be performed upon request. URINALYSIS W/ [id number] 04:09:00 Test Item Value Reference Range Interpretation [...] 2795) Collection CBC W/PLT COUNT & AUTO [id number] 03:54:00 Test Item Value Reference Range Interpretation [...] PERCENT (BEAKER) (test code = 2801) TROPONIN [id number] 23:56:00 Test Item Value Reference Range Interpretation [...] acute neurological disease, and persistent tachyarrhythmia.HEPATIC FUNCTION [id number] 23:49:00 Test Item Value Reference Range Interpretation [...] code = 17 U/L 6-55 347) PROTHROMBIN [id number] 23:40:00 Test Item Value Reference Range Interpretation Comments PROTIME (BEAKER) (test code = 15.8 seconds 11.7-14.7 H 759) INR (BEAKER) (test code = 370) 1.3 <=5.9 RECOMMENDED COUMADIN/WARFARIN INR THERAPY RANGESSTANDARD DOSE: 2.0 - 3.0 Includes: PROPHYLAXIS for venous thrombosis, systemic embolization; TREATMENT for venous thrombosis and/or pulmonary embolus.HIGH RISK: Target INR is 2.5-3.5 for patients with mechanical heart valves.CBC W/PLT COUNT & AUTO [id number] 23:27:00 Test Item Value Reference Range Interpretation [...] = 2801) RAD, CHEST, 1 VIEW, NON [id number] 21:51:00Reason for exam:->Stroke work up.Is the patient ?->UnknownShould this be performed at the bedside?->YesFINAL REPORT Clinical History: Stroke workup Comparison Study: None Findings: The cardiac silhouette is enlarged. The lungs are within normal limits. The pleural spaces are clear. No significant bony or soft tissue abnormalities are seen. Impression: Cardiomegaly. Signed: Shelley Steve MDReport Verified Date/Time: 12/07/2017 21:51:29 Reading Location: [address] Consult Reading Room POCT-GLUCOSE [id number] 11:34:00 Test Item Value Reference Range Interpretation Comments POC-GLUCOSE METER 84 mg/dL 70-[address] [facility] 6720 (BEAKER) (test code = KENNETH Kinney [facility] [address] 1538) [id number] 08:58:00 Test Item Value Reference Range Interpretation Comments PHOSPHORUS (BEAKER) (test code = 4.4 mg/dL 2.3-4.7 604) [id number] 08:58:00 Test Item Value Reference Range Interpretation Comments MAGNESIUM (BEAKER) (test code = 2.3 mg/dL 1.6-2.6 627) BASIC METABOLIC [id number] 08:58:00 Test Item Value Reference Range Interpretation [...] APPLICABLE FOR DIALYSIS PATIEN TS. HEPATIC FUNCTION [id number] 08:58:00 Test Item Value Reference Range Interpretation [...] code = 17 U/L 6-55 347) POCT-GLUCOSE [id number] 08:20:00 Test Item Value Reference Range Interpretation Comments POC-GLUCOSE METER 143 mg/dL 70-[address] [facility] 6720 (BEAKER) (test code = [place] 1538) [address] PROTHROMBIN [id number] 05:55:00 Test Item Value Reference Range Interpretation Comments PROTIME (BEAKER) (test code = 13.4 seconds 11.7-14.7 759) INR (BEAKER) (test code = 370) 1.0 <=5.9 RECOMMENDED COUMADIN/WARFARIN INR THERAPY RANGESSTANDARD DOSE: 2.0 - 3.0 Includes: PROPHYLAXIS for venous thrombosis, systemic embolization; TREATMENT for venous thrombosis and/or pulmonary embolus.HIGH RISK: Target INR is 2.5-3.5 for patients with mechanical heart valves.POCT-GLUCOSE [id number] 20:32:00 Test Item Value Reference Range Interpretation Comments POC-GLUCOSE METER 90 mg/dL 70-110 TESTED AT [place] [address] ([facility]) (test code = [facility] [address] 1538) POCT-GLUCOSE [id number] 16:47:00 Test Item Value Reference Range Interpretation Comments POC-GLUCOSE METER 79 mg/dL 70-110 TESTED AT [place] [address] ([facility]) (test code = [facility] [address] 1538) POCT-GLUCOSE [id number] 07:47:00 Test Item Value Reference Range Interpretation Comments POC-GLUCOSE METER 97 mg/dL 70-110 TESTED AT [place] [address] ([facility]) (test code = [facility] [address] 1538) TROPONIN [id number] 07:02:00 Test Item Value Reference Range Interpretation Comments TROPONIN I ([facility]) (test code = 397) < [...] failure, acidosis, acute neurological disease, and persistent tachyarrhythmia.[id number] 07:00:00 Test Item Value Reference Range Interpretation Comments PHOSPHORUS (BEAKER) (test code = 5.0 mg/dL 2.3-4.7 H 604) [id number] 07:00:00 Test Item Value Reference Range Interpretation Comments MAGNESIUM (BEAKER) (test code = 1.9 mg/dL 1.6-2.6 627) BASIC METABOLIC [id number] 07:00:00 Test Item Value Reference Range Interpretation [...] APPLICABLE FOR DIALYSIS PATIEN TS. HEPATIC FUNCTION [id number] 07:00:00 Test Item Value Reference Range Interpretation [...] code = 21 U/L 6-55 347) PROTHROMBIN [id number] 06:31:00 Test Item Value Reference Range Interpretation Comments PROTIME (BEAKER) (test code = 14.0 seconds 11.7-14.7 759) INR (BEAKER) (test code = 370) 1.1 <=5.9 RECOMMENDED COUMADIN/WARFARIN INR THERAPY RANGESSTANDARD DOSE: 2.0 - 3.0 Includes: PROPHYLAXIS for venous thrombosis, systemic embolization; TREATMENT for venous thrombosis and/or pulmonary embolus.HIGH RISK: Target INR is 2.5-3.5 for patients with mechanical heart valves.CBC W/PLT COUNT & AUTO [id number] 06:28:00 Test Item Value Reference Range Interpretation [...] = 2801) CREATINE KINASE (CK), TOTAL AND [id number] 01:39:00 Test Item Value Reference Range Interpretation Comments CREATINE KINASE TOTAL (AKER) 55 U/L 29-200 (test code = 380) CREATINE KINASE-MB (BEAKER) (test 1.1 ng/mL 0.0-6.6 code = 750) CREATINE KINASE-MB INDEX (AKER) 2.0 % (test code = 395) CK-MB Reference Range:<6.7 Normal6.7-10.0 Borderline>10.0 AbnormalTROPONIN [id number] 01:39:00 Test Item Value Reference Range Interpretation Comments TROPONIN I ([facility]) (test code = 397) < [...] acidosis, acute neurological disease, and persistent tachyarrhythmia.POCT-GLUCOSE [id number] 12:39:00 Test Item Value Reference Range Interpretation Comments POC-GLUCOSE METER 80 mg/dL 70-110 TESTED AT [place] [address] ([facility]) (test code = [facility] [address] 1538) POCT-GLUCOSE [id number] 07:07:00 Test Item Value Reference Range Interpretation Comments POC-GLUCOSE METER 100 mg/dL 70-110 TESTED AT [place] [address] ([facility]) (test code = [facility] 1538) [address] POCT-GLUCOSE [id number] 21:12:00 Test Item Value Reference Range Interpretation Comments POC-GLUCOSE METER 138 mg/dL 70-110 H TESTED AT [place] [address] ([facility]) (test code = [facility] 1538) [address] POCT-GLUCOSE [id number] 12:04:00 Test Item Value Reference Range Interpretation Comments POC-GLUCOSE METER 113 mg/dL 70-[address] [facility] 6720 (BEAKER) (test code = KENNETH Kinney [facility] 1538) [address] BASIC METABOLIC [id number] 04:26:00 Test Item Value Reference Range Interpretation [...] PATIEN TS. CBC W/PLT COUNT & AUTO [id number] 04:02:00 Test Item Value Reference Range Interpretation [...] (test code = 2801) CLOSTRIDIUM DIFFICILE TOXIN [id number] 13:44:00 Test Item Value Reference Range Interpretation [...] formed stools will be rejected unless ileus ispresent (i.e., specified when ordering). Patients may be colonized with toxigenic C.difficile strains not causing active disease; therefore, clinical correlation is needed when deciding how to manage patients with a positive test result.The assay has not been validated as a test of cure as amplifiablenucleic acid may persist after effective treatment; therefore, follow-up testing of a positive result is not recommended.CT, CTANGIO [id number] 06:59:00Addendum BeginsREPORT STATUS:A Three-dimensional post intravenous contrast images of the cerebral vasculature were created on a free standing workstation for better visualization of cerebral vascular anatomy and pathology. Signed: Skip Rodas MDReport Verified Date/Time: 04/12/2017 06:59:20 Reading Location: [place] [id number] Ortho Consult Reading RoomAddendum EndsFINAL REPORT Noncontrast [...] size and/or use of the iterative reconstruction technique.FINDINGS: Nonspecific periventricular and subcortical white matter changes [...] of the brain secondary to suboptimal IV. Thevisualized neck and intracranial internal carotid arteries, middle cerebral arteries, and anterior cerebral arteries demonstrate no stenosis, occlusion, aneurysm, or arterial venous malformation. Bilaterally symmetric intradural vertebral arteries. Normal basilar artery. Normal right posterior cerebral artery which arises off of the right internal carotid artery. The left posterior cerebral artery issomewhat diminutive and arises from the basilar artery. Patent major cerebral veins and dural venoussinuses. Patent jugular veins bilaterally. IMPRESSION: 1. Suboptimal CT angiogram of the brain secondary to a poor IV. No acute abnormalities are detected. CT angiogram of the neck arteries could not be obtained secondary to the patient's body habitus. 2. Results called to Dr. Hooks on 04/07/2017 at 12:50 AM. Signed: Skip Rodas MDReport Verified Date/Time: 04/07/2017 01:12:44 Reading Location: [address] Ortho Consult Reading Room BASIC METABOLIC [id number] 05:37:00 Test Item Value Reference Range Interpretation [...] 0-0 (BEAKER) (test code = 413) POCT-GLUCOSE [id number] 17:55:00 Test Item Value Reference Range Interpretation Comments POC-GLUCOSE METER 111 mg/dL 70-110 H TESTED AT [place] [address] ([facility]) (test code = KENNETH Kinney [facility] 1538) [address] POCT-GLUCOSE [id number] 12:02:00 Test Item Value Reference Range Interpretation Comments POC-GLUCOSE METER 100 mg/dL 70-110 TESTED AT [place] [address] ([facility]) (test code = KENNETH Kinney [facility] 1538) [address] POCT-GLUCOSE [id number] 07:50:00 Test Item Value Reference Range Interpretation Comments POC-GLUCOSE METER 110 mg/dL 70-110 TESTED AT [place] [address] ([facility]) (test code = KENNETH Kinney [facility] 1538) [address] POCT-GLUCOSE [id number] 16:56:00 Test Item Value Reference Range Interpretation Comments POC-GLUCOSE METER 104 mg/dL 70-110 TESTED AT [facility] 6720 (BEAKER) (test code = KENNETH Kinney [place] 1538) [address] POCT-GLUCOSE [id number] 12:22:00 Test Item Value Reference Range Interpretation Comments POC-GLUCOSE METER 84 mg/dL 70-[address] [facility] 6720 (BEAKER) (test code = KENNETH Kinney [facility] [address] 1538) HEMOGLOBIN [id number] 08:46:00 Test Item Value Reference Range Interpretation Comments HEMOGLOBIN A1C (BEAKER) (test code = 6.2 % 4.3-6.1 H 368) BASIC METABOLIC [id number] 06:42:00 Test Item Value Reference Range Interpretation Comments SODIUM (BEAKER) 142 meq/L 136-145 (test code = 381) POTASSIUM (BEAKER) 4.1 meq/L 3.5-5.1 Specimen slightly (test code = 379) hemolyzed CHLORIDE (BEAKER) 104 meq/L 98-107 (test code = 382) CO2 (BEAKER) (test 28 meq/L - code = 355) BLOOD UREA NITROGEN 9 [...] PATIEN TS. CBC W/PLT COUNT & AUTO [id number] 06:19:00 Test Item Value Reference Range Interpretation [...] PERCENT (BEAKER) (test code = 2801) POCT-GLUCOSE [id number] 12:07:00 Test Item Value Reference Range Interpretation Comments POC-GLUCOSE METER 110 mg/dL 70-[address] [facility] 6720 (BEAKER) (test code = [place] 1538) [address] CT, BRAIN, WITHOUT [id number] 06:55:00FINAL REPORT Clinical history : Decreased alertnessComparison study: CT scan ofthe brain 04/08/2017 Technique: Contiguous axial images were obtained of the brain without intravenous contrast. This exam was performed according to our departmental dose optimization program, which includes automated exposure control, adjustment of the mA and/or kV according to the patient's size and/or use of the iterative reconstruction technique. FINDINGS: No hydrocephalus, mass, midline shift, c isternal effacement, intraparenchymal hemorrhage, or extra axial fluid collection. No acute infarction is identified. The visualized paranasal sinuses and tympanomastoid cavities are well pneumatized. Normal orbital contents, skull base, and calvarium. Impression: No acute abnormalities. Signed: Skip Rodas MDReport Verified Date/Time: 04/09/2017 06:55:25 Reading Location: [facility] [id number] Ortho ConsultReading Room BASIC METABOLIC [id number] 05:57:00 Test Item Value Reference Range Interpretation [...] PATIEN TS. CBC W/PLT COUNT & AUTO [id number] 04:54:00 Test Item Value Reference Range Interpretation [...] PERCENT (BEAKER) (test code = 2801) POCT-GLUCOSE [id number] 01:34:00 Test Item Value Reference Range Interpretation Comments POC-GLUCOSE METER 92 mg/dL 70-110 TEST[facility] [place] [id number] [facility] (test code = KENNETH Kinney [facility] [address] 1538) POCT-GLUCOSE [id number] 19:20:00 Test Item Value Reference Range Interpretation Comments POC-GLUCOSE METER 85 mg/dL 70-110 TESTED AT [place] [address] ([facility]) (test code = KENNETH Kinney [facility] [address] 1538) CT, BRAIN, WITHOUT [id number] 15:47:00FINAL REPORT CT head without contrast. Comparisons: April 07 Reason for exam: Stroke. Discussion: Multiple axial CT images of the head are provided without contrast evaluated inbrain and bone windows. Dose modulation, iterative reconstruction, and/or weight based adjustment ofthe mA/kV was utilized to reduce the radiation dose to as low as reasonably achievable. There is no CT evidence of intracranial hemorrhage, [...] Darren Tijerina Verified Date/Time: 04/08/2017 15:47:42 POCT-GLUCOSE [id number] 12:44:00 Test Item Value Reference Range Interpretation Comments POC-GLUCOSE METER 94 mg/dL 70-110 [facility] [place] [address] [facility] (test code = KENNETH Kinney [facility] [address] 1538) BASIC METABOLIC [id number] 05:05:00 Test Item Value Reference Range Interpretation [...] PATIEN TS. CBC W/PLT COUNT & AUTO [id number] 04:28:00 Test Item Value Reference Range Interpretation [...] PERCENT (BEAKER) (test code = 2801) POCT-GLUCOSE [id number] 17:32:00 Test Item Value Reference Range Interpretation Comments POC-GLUCOSE METER 90 mg/dL 70-110 TESTED AT [place] [address] ([facility]) (test code = KENNETH Kinney [facility] [address] 1538) POCT-GLUCOSE [id number] 12:02:00 Test Item Value Reference Range Interpretation Comments POC-GLUCOSE METER 91 mg/dL 70-110 TESTED AT [place] [address] ([facility]) (test code = KENNETH Kinney [facility] [address] 1538) EEG AWAKE AND [id number] 11:38:00Reason for exam:->R/O subclinical seizuresDATE OF EE04-32-0054YRHV OF REPORT: 14-06-2286MLE: [id number]: 17- 1801Start time: 09:54Stop time: 10:18ICD-10: G 93.40CPT Code: 03304 HISTORY: 41 y.o. female with history of morbid obesity, DM2 whopresented today to OSH with R sided facial droop and LUE weakness . Patient was evaluated at OSH where patient was started with tPA after normal CT. Now with acute encephalopathy MEDICATIONS THAT COULDAFFECT EEG: TECHNICAL SUMMARY: This is a digital EEG recorded with 32 input channels on a [employer] system and then reviewed with bipolar and referential montages using the modified combinatorial system nomenclature. DESCRIPTION OF RECORD: During the brief maximally alert state a 9- 10 Hz posterior dominant rhythm was seen that [...] for differentiating mild encephalopathy from normal maynor-sleep somnolence.An EEG without epileptiform discharges does not exclude the possibility of epilepsy. If the clinicalsuspicion of epilepsy remains, consider additional EEG recordings. Javi Mae MDNeurophysiologyFellow FIG6Eblnyxfco Note: I personally reviewed this EEG record in its entirety and I agree with the details of this report. Kitty Montejo MD, PhDEpilepsy Attending CREATINE KINASE (CK), TOTAL AND [id number] 09:35:00 Test Item Value Reference Range Interpretation Comments CREATINE KINASE TOTAL (BEAKER) 52 U/L 29-200 (test code = 380) CREATINE KINASE-MB (BEAKER) (test 1.2 ng/mL 0.0-6.6 code = 750) CREATINE KINASE-MB INDEX (BEAKER) 2.3 % (test code = 395) CK-MB Reference Range:<6.7 Normal6.7-10.0 Borderline>10.0 AbnormalTROPONIN [id number] 09:31:00 Test Item Value Reference Range Interpretation [...] failure, acidosis, acute neurological disease, and persistent tachyarrhythmia.[id number] 09:28:00 Test Item Value Reference Range Interpretation Comments AMMONIA (BEAKER) (test code = 348) 34 mol/L 18-72 TSH/FREE T4 IF [id number] 04:28:00 Test Item Value Reference Range Interpretation Comments THYROID STIMULATING HORMONE 1.12 uIU/mL 0.35-4.94 (BEAKER) (test code = 772) VITAMIN B12 AND [id number] 04:28:00 Test Item Value Reference Range Interpretation Comments VITAMIN B12 (BEAKER) (test code = 417 pg/mL 213-816 774) FOLATE (BEAKER) (test code = 362) 13.6 ng/mL >=7.0 CBC W/PLT COUNT & AUTO [id number] 03:27:00 Test Item Value Reference Range Interpretation [...] = 2801) CREATINE KINASE (CK), TOTAL AND [id number] 03:11:00 Test Item Value Reference Range Interpretation Comments CREATINE KINASE TOTAL (BEAKER) 71 U/L 29-200 (test code = 380) CREATINE KINASE-MB (BEAKER) (test 1.5 ng/mL 0.0-6.6 code = 750) CREATINE KINASE-MB INDEX (BEAKER) 2.1 % (test code = 395) CK-MB Reference Range:<6.7 Normal6.7-10.0 Borderline>10.0 AbnormalFastingFastingTROPONIN [id number] 03:11:00 Test Item Value Reference Range Interpretation [...] acute neurological disease, and persistent tachyarrhythmia.FastingBASIC METABOLIC [id number] 03:04:00 Test Item Value Reference Range Interpretation [...] NOT APPLICABLE FOR DIALYSIS PATIEN TS. FastingLIPID [id number] 03:04:00 Test Item Value Reference Range Interpretation Comments TRIGLYCERIDES (BEAKER) 99 mg/dL Speci men moderately (test code = 540) hemolyzed CHOLESTEROL (BEAKER) 139 mg/dL Specime n moderately (test code = 631) hemolyzed HDL CHOLESTEROL (BEAKER) 43 mg/dL (test code = 976) LDL CHOLESTEROL 76 mg/dL CALCULATED (BEAKER) (test code = 633) Triglyceride Reference Range: Low Risk <150 Borderline 150-199 High Risk 200- 499 Very High Risk >=500Cholesterol Reference Range: Low Risk <200 Borderline 200-239 High Risk >240HDL Cholesterol Reference Range: Low Risk >=60 High Risk <40LDL Cholesterol Reference Range: Optimal <100 Near Optimal 100-129 Borderline 130-159 High 160-189 Very High >=190 Fasting HEPATIC FUNCTION [id number] 03:04:00 Test Item Value Reference Range Interpretation [...]
[2022-07-19] MEDS ORDERED: MORPHINE 2 MG/ML SYR ONE (01:22)
[2022-07-19 01:23] LABS: Protime INR 0.99
[2022-07-19 01:24] LABS: Hematocrit 39.4 % (36.0-45.0); Lymphocytes % 32.3 % (15.3-44.8); MCV 90.6 fL (80-100); MPV 9.7 fL (7.6-11.3); RBC Red Blood Cell Count 4.34 M/uL (3.86-4.86)
[2022-07-19] MEDS ORDERED: ONDANSETRON 4 MG/2 ML VIAL ONE ×3 (01:24→12:24)
[2022-07-19 01:41] LABS: Albumin 3.5 g/dL (3.4-5.0); Bilirubin Direct 0.1 mg/dL (0-0.2); Bilirubin Total 0.6 mg/dL (0.2-1.0); Magnesium 2.2 mg/dL (1.6-2.4); Potassium 3.9 mmol/L (3.5-5.1); Protein, Total 7.3 g/dL (6.4-8.2); Troponin High Sensitivity 5.6 pg/mL (<58.9)
[2022-07-19] MEDS ORDERED: FAMOTIDINE 20 MG/2 ML VIAL IV ONE (01:56)
--- NOTE | 2022-07-19 03:11 | EDPHYS ---
Physician Documentation [facility] Name: Kelle Calderón Age: 47 yrs Sex: Female : 1975 Arrival Date: 07/19/2022 Time: 00:43 Bed 5 Private MD: ELIO Physician Grabiel Harper HPI: 07/19 01:30 This 47 yrs old Female presents to ER via Ambulatory with complaints of Chest cp Pain, Chest Tightness, Headache, Nausea/Vomiting. 01:30 The patient or guardian reports chest pain that is located primarily in the anterior cp chest wall, left. Onset: 1.5 hour(s) ago. 01:30 The pain radiates to left back. Associated signs and symptoms: Pertinent positives: cp headache, nausea, vomiting, Pertinent negatives: abdominal pain, lower extremity pain, lower extremity swelling, shortness of breath, syncope. The chest pain is described as sharp. Duration: The patient or guardian reports a single episode, that is still ongoing, and unchanged. 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 - Social history:: Smoking status: Patient denies any tobacco usage or history of. Patient/guardian denies using alcohol, street drugs. ROS: 01:35 Constitutional: Negative for body aches, chills, fever, poor PO intake. cp 01:35 Eyes: Negative for injury, pain, redness, and discharge. cp 01:35 ENT: Negative for drainage from ear(s), ear pain, sore throat, difficulty swallowing, cp difficulty handling secretions. 01:35 Cardiovascular: Positive for chest pain, Negative for edema, palpitations. 01:35 Respiratory: Negative for cough, shortness of breath, wheezing. 01:35 Abdomen/GI: Positive for nausea, Negative for abdominal pain, diarrhea, constipation. 01:35 Back: Positive for radiated pain, of the left subscapular area. 01:35 Neuro: Positive for headache, Negative for altered mental status, dizziness, syncope, weakness. 01:35 All other systems are negative. Exam: 01:05 ECG was reviewed by the Attending Physician. cp 01:40 Constitutional: The patient appears in no acute distress, alert, awake, cp non-diaphoretic, non-toxic, well developed, well nourished, obese. 01:40 Head/Face: Normocephalic, atraumatic. cp 01:40 Eyes: Periorbital structures: appear normal, Conjunctiva: normal, no exudate, no injection, Sclera: no appreciated abnormality, Lids and lashes: appear normal, bilaterally. 01:40 ENT: External ear(s): are unremarkable, Nose: is normal, Mouth: Lips: moist, Oral mucosa: pink and intact, moist, Posterior pharynx: Airway: no evidence of obstruction, patent. 01:40 Neck: ROM/movement: is normal, is supple, without pain, no range of motions limitations, no nuchal rigidity. 01:40 Chest/axilla: Inspection: normal. 01:40 Cardiovascular: Rate: bradycardic, Rhythm: regular, Edema: is not appreciated, JVD: is not appreciated. 01:40 Respiratory: the patient does not display signs of respiratory distress, Respirations: normal, no use of accessory muscles, no retractions, labored breathing, is not present, Breath sounds: are clear throughout, no decreased breath sounds, no stridor, no wheezing. 01:40 Abdomen/GI: Inspection: abdomen appears normal, Bowel sounds: active, all quadrants, Palpation: abdomen is soft and non-tender, in all quadrants. 01:40 Back: pain, that is moderate, of the left subscapular area, ROM is normal. 01:40 Skin: no rash present. Vital Signs: 01:07 BP 137 / 78; Pulse 53; Resp 15; Temp 98.8; Pulse Ox 98% on R/A; Weight 99.79 kg; Height pf1 5 ft. 3 in. (160.02 cm); Pain 7/10; 02:00 BP 135 / 74; Pulse 56; Resp 14; Pulse Ox 97% on R/A; Pain 5/10; pf1 03:00 BP 111 / 55; Pulse 57; Resp 16; Temp 98; Pulse Ox 95% on R/A; Pain 5/10; pf1 01:07 Body Mass Index 38.97 (99.79 kg, 160.02 cm) pf1 MDM: 00:54 Patient medically screened. cp 03:00 Data reviewed: vital signs, nurses notes, lab test result(s), EKG, radiologic studies, cp plain films. 03:00 Consideration of Admission/Observation Patient was admitted/placed on observation. cp Management of patient was discussed with the following: Hospitalist: Magdaleno Cifuentes NP. Test considered but Not performed: CT: chest PE protocol. Counseling: I had a detailed discussion with the patient and/or guardian regarding: the historical points, exam findings, and any diagnostic results supporting the discharge/admit diagnosis, lab results, radiology results. 07/19 01:06 Order name: Basic Metabolic Panel; Complete Time: 01:44 cp 07/19 01:45 Interpretation: Normal except: CL 108. cp 07/19 01:06 Order name: CBC with Diff; Complete Time: 01:33 cp 07/19 01:33 Interpretation: Reviewed. cp 07/19 01:06 Order name: LFT's; Complete Time: 01:44 cp 07/19 01:45 Interpretation: Normal except: ALT 11; GLOB 3.8; A/G 0.9. cp 07/19 01:06 Order name: Magnesium; Complete Time: 01:44 cp 07/19 01:06 Order name: NT PRO-BNP; Complete Time: 01:44 cp 07/19 01:06 Order name: PT-INR; Complete Time: 03:11 cp 02 01:33 Interpretation: Reviewed. cp 07/19 01:06 Order name: Troponin HS; Complete Time: 01:44 cp 02 01:45 Interpretation: Within normal limits: Troponin HS 5.6. cp 07/19 01:37 Order name: Lipase; Complete Time: 01:44 EDMS 07/19 02:46 Order name: LAB Add On cp 07/19 02:54 Order name: D-Dimer; Complete Time: 03:11 EDMS 07/19 05:22 Order name: SARS RAPID pf1 07/19 01:06 Order name: XRAY Chest (1 view) cp 02/ 01:31 Order name: CT Head Brain wo Cont cp 07/19 06:11 Order name: SARS-COV-2 Antigen Rapid EDMS 07/19 08:03 Order name: Troponin High Sensitivity EDMS 07/19 08:03 Order name: Lipid Profile EDMS 07/19 08:03 Order name: T4 Free EDMS 07/19 08:03 Order name: Thyroid Stimulating Hormone EDMS 07/19 08:03 Order name: Glucose, Ancillary Testing EDMS 07/19 12:28 Order name: Glucose, Ancillary Testing EDMS 07/19 14:40 Order name: Troponin High Sensitivity EDMS 07/19 01:06 Order name: EKG; Complete Time: 01:07 cp 07/19 01:06 Order name: Cardiac monitoring; Complete Time: 01:07 cp 07/19 01:06 Order name: EKG - Nurse/Tech; Complete Time: 01:07 cp 07/19 01:06 Order name: IV Saline Lock; Complete Time: 01: cp 07/19 01:06 Order name: Labs collected and sent; Complete Time: 01:07 cp 07/19 01:06 Order name: O2 Per Protocol; Complete Time: 01: cp 07/19 01:06 Order name: O2 Sat Monitoring; Complete Time: 01:08 cp EC:05 Rate is 49 beats/min. Rhythm is regular. ID interval is normal. QRS interval is normal. cp QT interval is normal. T waves are Inverted in leads III, aVR. Interpreted by me. Reviewed by me. Administered Medications: 01:23 Drug: morphine 2 mg Route: IVP; Infused Over: 4 mins; Site: left antecubital; as6 02:20 Follow up: Response: No adverse reaction; Marked relief of symptoms; Pain is decreased; pf1 RASS: Alert and Calm (0) 01:23 Drug: Zofran (Ondansetron) 4 mg Route: IVP; Site: left antecubital; as6 02:20 Follow up: Response: No adverse reaction; Marked relief of symptoms; Nausea is decreasedpf1 01:43 Drug: Zofran (Ondansetron) 4 mg Route: IVP; Site: left antecubital; pf1 02:40 Follow up: Response: No adverse reaction; Marked relief of symptoms pf1 02:00 Drug: Pepcid (famotidine) 20 mg Route: IVP; Site: left antecubital; pf1 02:40 Follow up: Response: No adverse reaction; Marked relief of symptoms; Pain is decreased; pf1 RASS: Alert and Calm (0) 03:32 Drug: Aspirin Chewable Tablet 324 mg Route: PO; as6 03:55 Follow up: Response: No adverse reaction; Marked relief of symptoms; Pain is decreased; pf1 RASS: Alert and Calm (0) 03:32 Drug: Ativan (LORazepam) 0.5 mg Route: IVP; Site: left antecubital; as6 03:55 Follow up: Response: No adverse reaction; Marked relief of symptoms; RASS: Alert and pf1 Calm (0) 04:57 Not Given (not givenn): morphine 2 mg IVP once over 4 mins pf1 Disposition Summary: 07/19/22 03:10 Hospitalization Ordered Hospitalization Status: Observation cp Provider: Natanael Farley cp Condition: Stable cp Problem: new cp Symptoms: have improved cp Bed/Room Type: Standard cp Location: [facility] ER HOLD(07/19/22 03:47) cg Room Assignment: ERHOLD-(07/19/22 03:47) cg Diagnosis - Chest pain, unspecified cp Forms: - Medication Reconciliation Form cp - SBAR form cp Signatures: Dispatcher [employer] EDMS Magdaleno Cifuentes, DIVISION SUPERVISOR-C DIVISION SUPERVISOR-Cla1 Grabiel Alfred PA PA cp Kavitha Tovar RN RN cg Jamel Benjamin RN RN as6 Sheyla casanova RN RN pf1 Corrections: (The following items were deleted from the chart) 01:35 01:33 LIPASE+C.LAB.BRZ ordered. EDMS EDMS 01:45 01:45 Abnormal: Troponin HS 5.6. cp cp 02:53 02:47 D-DIMER+COAG.LAB.BRZ ordered. EDMS EDMS 03:47 03:10 Telemetry/MedSurg (observation) cp cg 03:47 03:10 cp cg
--- NOTE | 2022-07-19 03:11 | ER ---
Nurse's Notes [facility] Name: Kelle Calderón Age: 47 yrs Sex: Female : 1975 Arrival Date: 07/19/2022 Time: 00:43 Bed 5 Private MD: Diagnosis: Chest pain, unspecified Presentation: 07/19 01:03 Chief complaint: Patient states: left side constant chest pain pressure of 7-8,onset 1 pf1 hour ago with lightheadedness, nausea and headache,onset 30 minutes ago. Patient stated is in the process of moving. Patient stated the onset of chest pain while watching TV. Coronavirus screen: Vaccine status: Patient reports receiving the 2nd dose of the covid vaccine. Client denies travel out of the [place] in the last 14 days. Client presents with at least one sign or symptom that may indicate coronavirus-19. Standard/surgical mask placed on the client. Ebola Screen: Patient negative for fever greater than or equal to 101.5 degrees Fahrenheit, and additional compatible Ebola Virus Disease symptoms. Initial Sepsis Screen: Does the patient meet any 2 criteria? No. Patient's initial sepsis screen is negative. Does the patient have a suspected source of infection? No. Patient's initial sepsis screen is negative. Risk Assessment: Do you want to hurt yourself or someone else? Patient reports no desire to harm self or others. Onset of symptoms was July 19, 2022. 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 - Social history:: Smoking status: Patient denies any tobacco usage or history of. Patient/guardian denies using alcohol, street drugs. Screenin:10 [facility] ED Fall Risk Assessment (Adult) History of falling in the last 3 months, pf1 including since admission No falls in past 3 months (0 pts) Confusion or Disorientation No (0 pts) Intoxicated or Sedated No (0 pts) Impaired Gait No (0 pts) Mobility Assist Device Used No (0 pt) Altered Elimination No (0 pt) Score/Fall Risk Level 0 - 2 = Low Risk Oriented to surroundings, Maintained a safe environment, Educated pt \T\ family on fall prevention, incl call for assistance when getting out of bed, Assessed \T\ reinforced patient's understanding of fall precautions, Provided non-skid footwear, Hourly rounding (assess needs \T\ fall precautionary measures) done, Used ambulatory aids as needed (educated on \T\ assisted with), Used gait belt as appropriate. 01:10 Abuse screen: Denies threats or abuse. Nutritional screening: No deficits noted. pf1 Tuberculosis screening: No symptoms or risk factors identified. Assessment: 01:10 General: Appears in no apparent distress. uncomfortable, obese, well groomed, well pf1 developed, Behavior is calm, cooperative, appropriate for age, quiet. 01:10 Pain: Complains of pain in chest and headache Pain does not radiate. Pain began 1 hour pf1 ago. Neuro: No deficits noted. Level of Consciousness is awake, alert, obeys commands, Oriented to person, place, time, situation, Reports headache in left parietal area, frontal area. Neuro: Reports with lightheadedness. Cardiovascular: Reports chest pain, lightheadedness, nausea, Capillary refill < 3 seconds Patient's skin is warm and dry. Respiratory: No deficits noted. Airway is patent Trachea midline Respiratory effort is even, unlabored, Respiratory pattern is regular, symmetrical, Breath sounds are clear bilaterally. GI: Abdomen is round non-distended, Bowel sounds present X 4 quads. Reports nausea. : No deficits noted. No signs and/or symptoms were reported regarding the genitourinary system. EENT: No deficits noted. No signs and/or symptoms were reported regarding the EENT system. 02:00 Reassessment: Patient appears in no apparent distress at this time. Patient and/or pf1 family updated on plan of care and expected duration. Pain level reassessed. Patient is alert, oriented x 3, equal unlabored respirations, skin warm/dry/pink. Patient states symptoms have improved. 02:58 Reassessment: Patient appears in no apparent distress at this time. No changes from pf1 previously documented assessment. Patient and/or family updated on plan of care and expected duration. Pain level reassessed. Patient is alert, oriented x 3, equal unlabored respirations, skin warm/dry/pink. Patient states feeling better. Patient states symptoms have improved. 03:55 Reassessment: Patient appears in no apparent distress at this time. Patient and/or pf1 family updated on plan of care and expected duration. Pain level reassessed. Patient is alert, oriented x 3, equal unlabored respirations, skin warm/dry/pink. Patient states feeling better. Patient states symptoms have improved. Vital Signs: 01:07 BP 137 / 78; Pulse 53; Resp 15; Temp 98.8; Pulse Ox 98% on R/A; Weight 99.79 kg; Height pf1 5 ft. 3 in. (160.02 cm); Pain 7/10; 02:00 BP 135 / 74; Pulse 56; Resp 14; Pulse Ox 97% on R/A; Pain 5/10; pf1 03:00 BP 111 / 55; Pulse 57; Resp 16; Temp 98; Pulse Ox 95% on R/A; Pain 5/10; pf1 01:07 Body Mass Index 38.97 (99.79 kg, 160.02 cm) pf1 ED Course: 00:43 Patient arrived in ED. jj6 00:53 Sheyla casanova RN is Primary Nurse. pf1 00:54 Grabiel Alfred PA is PHCP. cp 00:54 Grabiel Harper MD is Attending Physician. cp 01:08 Inserted saline lock: 20 gauge in left antecubital area, using aseptic technique. Blood ds4 collected. 01:10 Patient has correct armband on for positive identification. Placed in gown. Bed in low pf1 position. Call light in reach. 01:10 Client placed on continuous cardiac and pulse oximetry monitoring. NIBP monitoring pf1 applied. neon sign installer on. 01:10 Arm band placed on. pf1 01:23 Triage completed. pf1 01:41 XRAY Chest (1 view) In Process Unspecified. EDMS 01:58 CT Head Brain wo Cont In Process Unspecified. EDMS 03:10 Natanael Farley MD is Hospitalizing Provider. cp 04:02 No provider procedures requiring assistance completed. Patient admitted, IV remains in pf1 place. Patient maintains SpO2 saturation greater than 95% on room air. Administered Medications: 01:23 Drug: morphine 2 mg Route: IVP; Infused Over: 4 mins; Site: left antecubital; as6 02:20 Follow up: Response: No adverse reaction; Marked relief of symptoms; Pain is decreased; pf1 RASS: Alert and Calm (0) 01:23 Drug: Zofran (Ondansetron) 4 mg Route: IVP; Site: left antecubital; as6 02:20 Follow up: Response: No adverse reaction; Marked relief of symptoms; Nausea is decreasedpf1 01:43 Drug: Zofran (Ondansetron) 4 mg Route: IVP; Site: left antecubital; pf1 02:40 Follow up: Response: No adverse reaction; Marked relief of symptoms pf1 02:00 Drug: Pepcid (famotidine) 20 mg Route: IVP; Site: left antecubital; pf1 02:40 Follow up: Response: No adverse reaction; Marked relief of symptoms; Pain is decreased; pf1 RASS: Alert and Calm (0) 03:32 Drug: Aspirin Chewable Tablet 324 mg Route: PO; as6 03:55 Follow up: Response: No adverse reaction; Marked relief of symptoms; Pain is decreased; pf1 RASS: Alert and Calm (0) 03:32 Drug: Ativan (LORazepam) 0.5 mg Route: IVP; Site: left antecubital; as6 03:55 Follow up: Response: No adverse reaction; Marked relief of symptoms; RASS: Alert and pf1 Calm (0) 04:57 Not Given (not givenn): morphine 2 mg IVP once over 4 mins pf1 Medication: 04:55 VIS not applicable for this client. pf1 Outcome: 03:10 Decision to Hospitalize by Provider. cp 03:10 Admitted to ER Hold. Please see [facility] for further documentation. pf1 03:10 Condition: stable 03:10 Instructed on the need for admit, Demonstrated understanding of instructions. 17:21 Patient left the ED. ss Signatures: Dispatcher [facility] Tasia Chase RN RN ss Sunny Berrios ds4 Grabiel Alfred PA PA cp Jeffries, Jennifer jj6 Jamel Benjamin RN RN as6 Sheyla casanova RN RN pf1 Zaida Paulino rv1 Corrections: (The following items were deleted from the chart) 01:25 01:07 BP 137 / 78; Pulse 53bpm; Resp 10bpm; Pulse Ox 98% RA; Temp 98.8F; 99.79 kg; pf1 Height 5 ft. 3 in.; BMI: 38.9; Pain 7/10; rv1
[2022-07-19] MEDS ORDERED: LORazepam 2 MG/ML VIAL ONE (03:23)
[2022-07-19] MEDS ORDERED: ASPIRIN 81 MG CHEWABLE TABLET ONE (03:23)
--- NOTE | 2022-07-19 03:45 | P.HP ---
Certification for Inpatient Patient admitted to: Observation With expected LOS: <2 Midnights Patient will require the following post-hospital care: None Practitioner: I am a practitioner with admitting privileges, knowledge of patient current condition, hospital course, and medical plan of care. Services: Services provided to patient in accordance with Admission requirements found in Title 42 Section 412.3 of the Code of Federal Regulations Patient History Date of Service: 07/19/22 Reason for admission: ACS rule out History of Present Illness: 47-year-old female with history of GERD, previous CVA, diet-controlled diabetes, hypertension, hyperlipidemia presents to the emergency department for chest pain. She reports she was sitting on the couch when she began to have onset of substernal/left sharp/pressure-like pain radiating to her left shoulder. She got up to move around thinking it would make her symptoms better but she became nauseous and dizzy and sat back down. Her pain and any ongoing for about an hour at this time she decided come to the emergency department for evaluation. Her labs were unremarkable EKG without STEMI criteria D-dimer negative. She does also have significant GERD with recent endoscopy performed about a month ago with Dr. Rodriguez who diagnosed her with an ulcer, gastritis and placed her on Protonix twice daily and Tums as needed which she has been taking. She also takes ibuprofen periodically for musculoskeletal pain usually on a weekly basis per patient. ED provider wishes to admit under observation for ACS rule out. Allergies amoxicillin Allergy (Severe, Verified 11/04/20 18:55) Itching/Hives/Rash doxycycline Allergy (Verified 05/10/19 08:42) Hives/Rash Penicillins Allergy (Verified 05/12/19 09:25) Hives/Rash sulfamethoxazole [From Bactrim] Allergy (Verified 05/10/19 08:24) Hives/Rash trimethoprim [From Bactrim] Allergy (Verified 05/10/19 08:24) Hives/Rash warfarin Allergy (Verified 04/15/17 22:46) Itching Home Medications: Acyclovir Tab [Zovirax*] 400 mg PO SEECOM 11/04/20 Aspirin [Aspirin EC 81 MG] 81 mg PO DAILY 11/04/20 Labetalol HCl 200 mg PO DAILY 11/04/20 Pantoprazole [Protonix Tab*] 40 mg PO BID 11/04/20 Simvastatin 10 mg PO BEDTIME 11/04/20 acetaZOLAMIDE [Diamox*] 1,000 mg PO BID 11/04/20 carBAMazepine [Carbamazepine] 400 mg PO BID 11/04/20 Sodium Chloride One Drop 1 drop RIGHT EYE BEDTIME 11/07/20 Lidocaine 4% Patch [Lidoderm 5% Patch*] 2 patch TOP DAILY patch 11/14/20 - Past Medical/Surgical History Diabetic: Yes -: DM-Type 2 -: JUDITH -: Lymphedema -: Depression -: Obesity -: Chronic diarrhea -: IBS -: stomach ulcer -: GERD -: ulcer of esophagus -: reflux esophagitis -: Cholecystectomy -: Hysterectomy -: x3 -: Umbilical Hernia Repair -: Right knee surgery x3 -: Tubaligation -: Mole removal Psychosocial/ Personal History: - 21 years, 3 children, 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 moist/pink, EOMI, Sclerae nonicteric Neck: Supple, 2+ carotid pulse no bruit, No LAD, Without JVD or thyroid abnormality Respiratory: Clear to auscultation bilaterally, Normal air movement Cardiovascular: No edema, Regular rate/rhythm, Normal S1 S2 Capillary refill: <2 Seconds Gastrointestinal: Normal bowel sounds, No tenderness Musculoskeletal: No tenderness Integumentary: No rashes Neurological: Normal gait, Normal speech, Normal strength at 5/5 x4 extr, Normal tone, Normal affect Lymphatics: No axilla or inguinal lymphadenopathy - Studies Laboratory Data (last 24 hrs) 07/19/22 01:32: Lipase Cancelled 07/19/22 01:05: PT 10.9, INR 0.99 07/19/22 01:05: WBC 6.20, Hgb 12.8, Hct 39.4, Plt Count 175 07/19/22 01:05: Sodium 142, Potassium 3.9, BUN 17, Creatinine 0.62, Glucose 77, Magnesium 2.2, Total Bilirubin 0.6, AST 17, ALT 11 L, Alkaline Phosphatase 84, Lipase 128 Assessment and Plan - Plan Assessment: Chest pain rule out ACS GERD/gastric ulcers Diabetes mellitus type 2diet controlled Hypertensionwell-controlled Hyperlipidemia Plan: Chest pain rule out ACS Trend troponin, monitor on telemetry, cardiology consulted. Aspirin, statin ordered. Blood pressure low normal hold off on beta-selena therapy. Appreciate further from cardiology, possibly GI related patient with recent endoscopy that showed gastric ulcers currently taking Protonix p.o. twice daily as well as Tums as needed. She does report this pain felt different than her typical GERD pain. 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 GERD/gastric ulcers Continue Protonix, Tums patient has scheduled outpatient repeat scope in July Diabetes mellitus type 2diet controlled Patient is diet controlled glucose 77 on labs, monitor daily. Hypertensionwell-controlled No longer taking oral antihypertensive agents at home blood pressure low-normal. Hyperlipidemia Lipid panel in the morning. Restart statin as appropriate. DVT PPX: Lovenox Code status: Full Discharge Plan: Home Plan to discharge in: 24 Hours - Advance Directives Does patient have a Living Will: No Does patient have a Durable POA for Healthcare: No - Code Status/Comfort Care Code Status Assessed: Yes (Full code) Time Spent Managing Pts Care (In Minutes): 55
[2022-07-19] MEDS ORDERED: CALCIUM CARBONATE CHEW 500MG TAB PO PRN (05:27)
[2022-07-19] MEDS ORDERED: ONDANSETRON 4 MG/2 ML VIAL IV PRN (05:27)
[2022-07-19 05:39] VITALS: BMI 38.7
[2022-07-19 06:11] LABS: SARS-CoV-2 Antigen Rapid Res Negative (Negative)
[2022-07-19] MEDS ORDERED: PANTOPRAZOLE 40MG TABLET PO SCH (07:30)
[2022-07-19 08:02] LABS: Thyroid Stimulating Hormone 3.27 uIU/mL (0.358-3.740); Troponin High Sensitivity 5.4 pg/mL (<58.9)
[2022-07-19] MEDS ORDERED: ASPIRIN EC 81 MG TAB PO SCH (09:00)
[2022-07-19] MEDS ORDERED: ENOXAPARIN 40 MG/0.4 ML SQ SCH (09:00)
[2022-07-19] MEDS ORDERED: PANTOPRAZOLE 40MG TABLET PO ONE (09:04)
[2022-07-19] MEDS ORDERED: ASPIRIN EC 81 MG TAB PO ONE (09:04)
[2022-07-19 13:07] VITALS: BP 106/66; TEMP 97.6
--- NOTE | 2022-07-19 15:20 | RAD REPORT ---
EXAM DESCRIPTION: Head Brain Wo Cont CLINICAL HISTORY: 47 years Female headache, vomiting COMPARISON: None TECHNIQUE: Noncontrast CT head. This exam was performed according to our departmental dose-optimization program, which includes autom ated exposure control, adjustment of the mA and/or kV according to patient size and/or use of iterati ve reconstruction technique.. FINDINGS: Parenchyma: No acute hemorrhage, large territorial infarction, or mass effect. Ventricles and extra-axial spaces: Appropriate for age. Visualized paranasal sinuses: Clear. Mastoid air cells: Clear. Bones: No acute focal abnormality. Additional comment: None. IMPRESSION: No acute intracranial findings. Electronically signed by: Lin Hager MD 07/19/2022 2:04 AM MEDIA PRODUCTION SUPPORT MANAGER Due to temporary technical issues with the PACS/Fluency reporting system, reports are being signed by the in house radiologists without review as a courtesy to insure prompt reporting. The interpreting radiologist is fully responsible for the content of the report.
--- NOTE | 2022-07-19 15:21 | RAD REPORT ---
EXAM DESCRIPTION: Chest Single View CLINICAL HISTORY: 47 years Female CHEST PAIN COMPARISON: None FINDINGS: Lung volumes diminished. Cardiac silhouette is normal. No pneumothorax. No large pleural effusion. No focal consolidation. No acute bony finding. IMPRESSION: No acute cardiopulmonary findings. Electronically signed by: Lin Hager MD 07/19/2022 1:48 AM TRIAL EXAMINER Due to temporary technical issues with the PACS/Fluency reporting system, reports are being signed by the in house radiologists without review as a courtesy to insure prompt reporting. The interpreting radiologist is fully responsible for the content of the report.
[2022-07-19 18:19] VITALS: O2SAT 95
[2022-07-19] MEDS ORDERED: ATORVASTATIN 40 MG TAB PO SCH (21:00)
== END 2022-07-19 17:22 | disposition home or self-care (01) ==
LOC: ER 00:41 → ERHOLD 03:29
PROVIDERS: ADMIT Hospitalist; ATTEND Hospitalist
DX: R07.9 Chest pain, unspecified (principal); K21.9 Gastro-esophageal reflux disease without esophagitis; E11.9 Type 2 diabetes mellitus without complications; I10 Essential (primary) hypertension; E78.5 Hyperlipidemia, unspecified; Z86.73 Personal history of transient ischemic attack (TIA), and cerebral infarction without residual deficits; Z88.1 Allergy status to other antibiotic agents; Z88.2 Allergy status to sulfonamides; Z88.3 Allergy status to other anti-infective agents; Z20.822 Contact with and (suspected) exposure to COVID-19; Z88.0 Allergy status to penicillin
CPT/HCPCS: 93005; 85025; 80048; 36415; 83735; 85610; 80061; 82947 ×2; 85379; 80076; 84443; 84484 ×3; 84439; 83690; 83880; 70450; 71045; 87811; J2270; J2405 ×3; G0378

== ENCOUNTER 2023-01-14 19:07 | Emergency (ER) | payer OTHER ==
--- OUTSIDE RECORDS SUMMARY | 2023-01-14 19:34 | XMS REPORT | Continuity of Care Document ---
:1975 Author Organization [facility] t Address [address] [facility]. [address] [place] [address] Support Name Relationship Address Phone LVE CALDERÓN X [address] [place] [address] ARSALAN MUSTAFA M [address] [place] [address] Lev Calderón Spouse [address] [place] [address] Solis Calderón, Lev Spouse [address] [place] [address] LEV CALDERÓN Unavailable [address] [phone] [place] [address] NONE, OTHER Unavailable [address] [phone] [place] [address] JosepLev Cordova Naturalson [address] [facility] [place] [address] Lev Calderón Spouse [address] [place] [address] Joycelyn, Brittine Daughter [address] [place] [address] UNK, UNK Unavailable . [phone] [place] [address] LEV CALDERÓN SPOU [address] [phone] [place] [address] ARSALAN MUSTAFA M [address] [place] [address] LEV CALDERÓN X [address] [place] [address] Solis Calderón, Lev Spouse [address] [phone] [place] [address] LEV CALDERÓN X [address] [facility] [place] [address] Lev Laird Spouse [address] [phone] [place] [address] Care Team Providers Name Role Phone DIANA HOPKINS Primary Care Physician Unavailable HERLINDA NELSON Attending Clinician Unavailable MINI ALVES Attending Clinician Unavailable EDDIE BOYER Attending Clinician Unavailable EDDIE BOYER Attending Clinician Unavailable MICHAEL MANZANARES Attending Clinician Unavailable LEANNE MCNULTY Attending Clinician Unavailable Virginia Morgan MD Attending Clinician Clinic, Speech Voice/Swallow Attending Clinician Unavailable VIRGINIA MORGAN Attending Clinician Unavailable Mini Alves MD Attending Clinician [phone] AGUSTO WALLACE Attending Clinician Unavailable Pob, Adc Lab Main Attending Clinician Unavailable Alisa Malone MD Attending Clinician ALISA MALONE Attending Clinician Unavailable Doctor Unassigned, [place] Attending Clinician Unavailable Chang Yee MD Attending Clinician Per RN, Luiz Solomon Attending Clinician Unavailable Sandeep AGRICULTURE TECHNICIANDiana Mas Attending Clinician Anju Pereira Attending Clinician Eddie Boyer MD Attending Clinician ANJU IRWIN Attending Clinician Unavailable SEGUNDO MICHAUD Attending Clinician Unavailable Jaswant BUCKLEY, Segundo Attending Clinician Swallows, Gal Speech Modified Barium Attending Clinician Debbi ian Nevarez PhD, Alexandra Solomon Attending Clinician Leslie AGRICULTURE TECHNICIANHerlinda Mas Attending Clinician Leanne Ang Attending Clinician Lab, Ang - Db Attending Clinician Unavailable DIANA HOPKINS Attending Clinician Unavailable HOMER, SENDIL K.H. Attending Clinician Unavailable Manpreet Judd MD Attending Clinician MANPREET JUDD Attending Clinician Unavailable EKATERINA SANFORD Attending Clinician Unavailable Joaquina GARCIA, Danitza Attending Clinician Gianna Sousa MA Attending Clinician Unavailable Chandler Joshi MD Attending Clinician SAKINA FIORE Attending Clinician Unavailable Sakina Dobbs Attending Clinician DANITZA KUNZ Attending Clinician Unavailable Nurse, Mitul Bush Attending Clinician Unavailable Lucian Crespo MD Attending Clinician Albert Espana Attending Clinician Only, Adc Test Attending Clinician Unavailable LESLY BREEN Attending Clinician Unavailable ALICE AMEZQUITA Attending Clinician Unavailable Alice Amezquita MD Attending Clinician ROHIT JUARES Attending Clinician Unavailable ROHIT JUARES Attending Clinician Unavailable Homer GARCIA, Jolanta K.H. Attending Clinician Draw, Clc-Bls Lab Attending Clinician Unavailable SHEYLA RODRIGUEZ Attending Clinician Unavailable Sheyla Rodriguez NP Attending Clinician Elizabeth Shelton Attending Clinician Unavailable Shahnaz Ramos PT Attending Clinician Unavailable Karli Tuttle MD Attending Clinician TRAVIS SHARPE Attending Clinician Unavailable Travis Sharpe APN Attending Clinician KARLI TUTTLE Attending Clinician Unavailable ABIGAIL SUE Attending Clinician Unavailable Abigail Townsend Attending Clinician ALEXANDRA HERRERA Attending Clinician Unavailable Alexandra Herrera MD Attending Clinician Randa Shelton PTA Attending Clinician Unavailable Nichole Hassan PT Attending Clinician Unavailable LUCIAN CRESPO Attending Clinician Unavailable Zan LEON Attending Clinician Unavailable Zan Nguyen Attending Clinician INA AGUIRRE Attending Clinician Unavailable Ina Mejia Attending Clinician Bryant Colby Attending Clinician Unavailable SEBASTIEN HANSON Attending Clinician Unavailable Sebastien Hanson MD Attending Clinician Giuliano Abdullahi Attending Clinician Unavailable JANNETH VILLATORO Attending Clinician Unavailable Janneth Villatoro MD Attending Clinician Gaby Carcamo MD Attending Clinician GABY CARCAMO Attending Clinician Unavailable Renee Fischer Attending Clinician RENEE BANKS Attending Clinician Unavailable PALLAVI COMER Attending Clinician Unavailable COLIN HAGEN Attending Clinician Unavailable Rosalia Concepcion Attending Clinician Unavailable MIKE LANDAVERDE Attending Clinician Unavailable VIRGIL SANCHES Attending Clinician Unavailable Jordin Kelley MD Attending Clinician ALISA DENNIS II Attending Clinician Unavailable ALBERT CUEVAS Attending Clinician Unavailable TAVARES GODWIN Attending Clinician Unavailable PHILL MORAES NP Attending Clinician Unavailable KUSHAL GREENBERG M.D. Attending Clinician Unavailable DEUCE PAK RD Attending Clinician Unavailable MAYRA CHEUNG Attending Clinician Unavailable MICKEY RESTREPO Attending Clinician Unavailable MICHAEL MANZANARES Admitting Clinician Unavailable DIANA HOPKINS Admitting Clinician Unavailable ROHIT JUARES Admitting Clinician Unavailable SHEYLA RODRIGUEZ Admitting Clinician Unavailable UNDEFINED Admitting Clinician Unavailable Physician, No Primary or Family Admitting Clinician UnavailTRAVIS Aden Admitting Clinician Unavailable ALEXANDRA HERRERA Admitting Clinician Unavailable LEANNE MCNULTY Admitting Clinician Unavailable Zan LEON Admitting Clinician Unavailable INA AGUIRRE Admitting Clinician Unavailable Bryant Colby Admitting Clinician Unavailable SEBASTIEN HANSON Admitting Clinician Unavailable Giuliano Abdullahi Admitting Clinician Unavailable Rosalia Concepcion Admitting Clinician Unavailable MIKE LANDAVERDE Admitting Clinician Unavailable CLARY MONTEJO Admitting Clinician Unavailable RK TRENT Admitting Clinician Unavailable Candace Dhaliwal AGRICULTURE TECHNICIAN Admitting Clinician Unavailable TAVARES GODWIN Admitting Clinician Unavailable MAYRA CHEUNG Admitting Clinician Unavailable MICKEY RESTREPO Admitting Clinician Unavailable Payers Payer Name Policy Type Policy Number Effective Date Expiration Date S jael MEDICAID [place] [id number] 2021 00:00:00 [facility] DUAL [id number] 2020 COMP HMO D SNP 00:00:[address] [facility] STAR [id number] 2020 PLUS 00:00:00 WELLCARE DUAL [id number] 2022 ACCESS OPEN PPO 00:00:00 [place]ARE [place] PLUS [id number] 2021 CLASSIC NO 00:00:00 PREMIUM HMO MEDICARE PART A [id number] 2016 \\T\\ B 00:00:00 [facility] MEDICARE [id number] 2019 2019 COMPLETE CHOICE 00:00:00 00:00:00 Problems Condition Condition Condition Status Onset Resolution Last Treating Co mments Source Name Details Category Date Date Treatment Clinician Date Varicose Varicose Disease Active Overview: Un miki veins of veins of 4-20 Formattin ity of both lower both lower 00:00: g of this [place] extremitie extremitie 00 note Me dical s with s with might be Branch pain pain different from the original. 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 00:[place] Lumbar Lumbar Disease Active Univers radiculopa radiculopa 4-17 it y of thy thy 00:00: 00 Medical Branch Facet Facet Disease Active Univers arthropath arthropath 4-17 it y of y, y, 00:00: [place] lumbosacra lumbosacra 00 Me dical l l Branch Therapeuti Therapeuti Disease Active U nivers c drug c drug 4-17 ity of monitoring monitoring 00[place]00: [place] [facility] [place] Vitamin D Vitamin D Disease Active Uni vers deficiency deficiency 4-17 it y of 00:00: Medical Branch Paresthesi Paresthesi Disease Active 2022-0 U nivers a of a of 4-17 ity of bilateral bilateral 00:00[place] legs legs 00 [facility] Ulcerative Ulcerative Disease Active 2022-0 U nivers esophagiti esophagiti 2-08 it y of s s 00:00: Medical Branch Nausea Nausea Disease Active 2022- Univers 2-08 ity of 00:00: Medical Branch Sore Sore Disease Active 2022- Univers throat throat 2-08 ity of 00:00: [place] [facility] Follow-up Follow-up Disease Active Uni vers examinatio examinatio 2-08 it y of n n 00:[facility]: [facility] Pleurisy Pleurisy Disease Active 2021-06 Unive rs 2-05 ity of 00:00: [facility] Lymphadeno Lymphadeno Disease Active 2021-06 U nivers nu nu 2-05 ity of 00:00: Medical Branch Oropharyng Oropharyng Disease Active 2021- U nivers eal eal 2-05 ity of dysphagia dysphagia 00:00: a s Medical Branch Esophageal Esophageal Disease Active 2021-0 U nivers dysphagia dysphagia 9-28 ity of 00:00: Medical Branch Epigastric Epigastric Disease Active 2021-0 U nivers pain pain 9-28 ity of 00:00: [facility] H/O H/O Disease Active Univers gastric gastric 9-28 ity of sleeve sleeve 00:00: Medical Branch Encounter Encounter Disease Active Uni vers to to 9-28 ity of establish establish 00:00[place] care care [place] [facility] Leg Leg Disease Active Univers weakness, weakness, 6-29 ity of bilateral bilateral 00:00[place] Decreased Decreased Disease Active Uni vers activity activity 6-29 ity of tolerance tolerance 00:00: a s Medical Branch Sacroiliac Sacroiliac Disease Active 2021-0 U nivers dysfunctio dysfunctio 6-29 it y of n n 00:00: [place] 00 Medical Branch Chronic Chronic Disease Active [...] cular 6-18 ity of accident accident 00:00: [place] (CVA), (CVA), 00 Medical unspecifie unspecifie Br anch d d mechanism mechanism Left arm Left arm Disease Active Unive rs weakness weakness 6-10 ity of 00:00: [place] 00 Medical Branch Left arm Left arm Disease Active Unive rs weakness weakness 6-10 ity of 00:00: [place] 00 Medical Branch Decreased Decreased Disease Active Uni vers 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 s 00 Medical Branch Cellulitis Cellulitis Disease Active U nivers 3-25 ity of 00:00: [place] [facility] Rhinovirus Rhinovirus Disease Active U nivers infection infection 3-18 ity of 00:00: [place] [facility] Lymphedema Lymphedema Disease Active U nivers 3-17 ity of 00:00: [place] [facility] Hyperlipid Hyperlipid Disease Active U nivers emia emia 3-17 ity of 00:00: [place] [facility] Major Major Disease Active Univers depressive depressive 3-17 it y of disorder disorder 00:00: [place] [facility] Cranial Cranial Disease Active Univers nerve VII nerve VII 2-12 ity of palsy palsy 00:00: [place] [facility] Facial Facial Disease Active Univers weakness weakness 2-10 ity of 00:00: [place] 00 Medical Branch Bradycardi Bradycardi Disease Active U nivers a, sinus a, sinus 9-11 ity of 00:00: [place] [facility] Essential Essential Disease Active Uni vers hypertensi hypertensi 9-11 it y of on on 00:00: [place] 00 Medical Branch JUDITH JUDITH Disease Active Univers (obstructi (obstructi 911 it y of ve sleep ve sleep 00:00: [place] apnea) apnea) 00 Medical Branch Atypical Atypical Disease Active Unive rs chest pain chest pain 9- it y of 00:00: [place] 00 Medical Branch Type 2 Type 2 Disease Active Univers diabetes diabetes 02-21 ity of mellitus mellitus 00:00: [place] with other with other 00 Me dical specified specified Bran ch complicati complicati on, on, without without long-term long-term current current use of use of insulin insulin COVID-19 COVID-19 Disease Active Unive rs virus virus 02-21 ity of detected detected 00:00: [place] 00 Medical Branch Pneumonia Pneumonia Disease Active Uni vers due to due to 02-18 ity of COVID-19 COVID-19 00:00: [place] virus virus 00 Medical Branch Lower Lower Disease Active Univers respirator respirator 907 it y of y tract y tract 00:00: [place] infection infection 00 Medi diane due to due to Branch COVID-19 COVID-19 virus virus Morbid Morbid Disease Active Univers obesity obesity 02-17 ity of with body with body 00:00: Kristie s mass index mass index 00 Me dical of 50 or of 50 or Branch higher higher Class 3 Class 3 Disease Active Univers severe severe 02-17 ity of obesity obesity 00:00: [place] with with 00 Medical serious serious Branch comorbidit comorbidit y and body y and body mass index mass index (BMI) of (BMI) of 40.0 to 40.0 to 44.9 in 44.9 in adult, adult, unspecifie unspecifie d obesity d obesity type type GASTRO GASTRO Diagnosis Active 2018-09-27 Me moria Active 09-04 07:13:00 l 09/04/2018 00:00: Edmund jacobson [facility] [place] [facility] Cough Cough Disease Active [facility] 00 [place] Generalize Generalize Disease Active [facility] d headache d headache 3-11 Liudmila kes 00:00: Medical 00 [place] STROKE STROKE Diagnosis Active 2018-06-13 [place] moria Active 06-13 04:41:00 l 06/13/2018 00:00: Edmund jacobson [address] ACUTE ACUTE Diagnosis Active 2018-06-22 Mem oria CEREBROVAS CEREBROVAS 06-13 22:17:00 l CULAR CULAR 00:00: [place] ACCIDENT ACCIDENT 00 Active 06/13/2018 [facility] Left-sided Left-sided Disease Active [facility] weakness weakness 12-08 [facility] 00:[facility]: Medical 00 [place] Status Status Disease Active [facility] post [...] prior to admission admission to current to [facility] facility facility Acute Acute Disease Recurre [facility] ischemic ischemic nce 12[facility] stroke stroke 00:00: Medical 00 [place] 3RD LIBERTARIAN 3RD LIBERTARIAN Diagnosis Active 2017-12-07 Memoria Active 12-07 23:11:00 l 12/07/2017 00:00: Edmund jacobson [address] Headache, Headache, Disease Active 2016-[address] acute acute 1-20 [facility] 00:00: Medical 00 [place] 3RD LIBERTARIAN 3RD LIBERTARIAN Diagnosis Active 2016-062017-04-06 Memoria FLIGHT FLIGHT 0 23:56:00 l Active 00:00: [place] 04/06/2017 00 [facility] CVA CVA Disease Recurre 2015-[address] (cerebral (cerebral nce 2-26 Luke s vascular vascular 00:00: Medica [...] of lower Physic i extremity extremity ans Body mass Body mass [facility] 13:50:12 l (BMI) (BMI) [place] 60.0-69.9, 60.0-69.9, adult adult 01/02/2019 [facility] Encephalop Encephalo Problem 2019-01-02 Roldanoria nu castellanos, 13:50:12 l unspecifie unspecifie He rmann d d 01/02/2019 [facility] Essential Problem 2019-01-02 Me moria (primary) Essential 13:50:12 l hypertensi (primary) Her espino on hypertensi on 01/02/2019 [facility] Morbid Morbid Problem 2019-01-02 Jose G rene (severe) (severe) 13:50:12 l obesity obesity Jimmy due to due to excess excess calories calories 01/02/2019 [facility] Type 2 Type 2 Problem 2019-01-02 Jose G rene diabetes diabetes 13:50:12 l mellitus mellitus Edmund n with with hyperglyce hyperglyce gloria gloria 01/02/2019 [facility] Difficulty Difficult Problem 2019-01-02 Memoria in y in 13:50:12 l walking, walking, Edmund n not not elsewhere elsewhere classified classified 9 [facility] Naranjo's Naranjo's Problem 2019-01-02 Jose G rene palsy palsy 13:50:12 l 01/02/2019 Edmund jacobosn [facility] Encounter Encounter Problem 2019-01-02 Memoria for for 13:50:12 l immunizati immunizati He rmann on on 01/02/2019 [facility] Migraine, Migraine, Problem 2019-01-02 Memoria unspecifie unspecifie 13:50:12 l d, not d, not Jimmy intractabl intractabl e, without e, without status status migrainosu migrainosu s s 01/02/2019 [facility] Status Status Problem 2019-01-02 Jose G rene post post 13:50:12 l administra administra He rmann tion of tion of tPA (rtPA) tPA (rtPA) in a in a different different facility facility within the within the last 24 last 24 hours hours prior to prior to admission admission to current to current facility facility 01/02/2019 [facility] 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 2019-01-02 Memoria (current) (current) 13:50:12 l use of use of Jimmy insulin insulin 01/02/2019 [facility] Family Family Problem 2019-01-02 Jose G rene history of history of 13:50:12 l diabetes diabetes Edmund n mellitus mellitus 01/02/2019 [facility] Disease of Disease Problem Active 2019-01-02 Memoria cardiovasc of 13:50:12 l ular cardiovasc Edmund jacobson system ular (disorder) system (disorder) Active Problem 01/02/2019 right leg [facility] Diabetes Diabetes Problem Active 2019-01-02 Memoria mellitus mellitus 13:50:12 l (disorder) (disorder) He rmann Active Problem 01/02/2019 [facility] Heartburn Heartburn Problem Active 2019-01-02 Memoria (finding) (finding) 13:50:12 l Active [place] Problem 01/02/2019 [facility] ILLNESS, ILLNESS, Diagnosis Active 2018-06-13 Memoria UNSPECIFIE UNSPECIFIE 04:41:00 l D D Active [place] [facility] CEREBRAL CEREBRAL Diagnosis Active 2018-06-22 Memoria INFARCTION INFARCTION 22:17:00 l , , Jimmy UNSPECIFIE UNSPECIFIE D D Active [facility] Illness, Illness, Problem 2019-01-02 Memoria unspecifie unspecifie 13:50:12 l d d Jimmy 01/02/2019 [facility] Acute Acute Problem 2019-01-02 Memor ia respirator respirator 13:50:12 l y failure y failure Herm mio with with hypoxia hypoxia 01/02/2019 [facility] Hemiplegia Hemiplegi Problem 2019-01-02 Memoria and a and 13:50:12 l hemiparesi hemiparesi He rmann s s following following cerebral cerebral infarction infarction affecting affecting left left non-domina non-domina nt side nt side 01/02/2019 [facility] History of Past Illness Condition Condition Condition Status Onset Resolution Last Treating Co mments Source Name Details Category Date Date Treatment Clinician Date Cerebral Cerebral Problem 2018-2019-01-02 2019-01-02 Memoria infarction infarction - 13:50:12 13:50:12 l , , 05:33: Jimmy unspecifie unspecifie 29 d d 06/23/2018 01/02/2019 [facility] Allergies, Adverse Reactions, Alerts Allergy Allergy Status Severity Reaction(s) Onset Inactive Treating Comm ents Source Name Type Date Date Clinician amoxicil DA Active [facility] [place] [facility] amoxicil DA Active SV rash [facility] ed 5-17 [place] 00:[facility] Penicill DA Active U 2019- [facility] ins 07-02 [place] [facility] warfarin DA Active U 2019- [facility] 07[facility]02 [place] [facility] clopidog DA Active U 2019- [facility] rel 07-02 [place] [facility]: [facility] Penicill DA Active U UNKNOWN 2019- [facility] ins 07-02 [place] [facility] warfarin DA Active U UNKNOWN 2019- [facility] 07-02 [place] 00:[facility]: [facility] clopidog DA Active U UNKNOWN 2019- [facility] rel 07-02 [place] 00:[facility]: [facility] AMOXICIL [...] of Bisulfat adverse 00:00: [place] e reaction Medical s Branch Warfarin Propensi Active Rash [...] s warfarin warfarin Active Memori a l [place] Plavix Plavix Active Memoria l [place] orphenad drug Active [facility] Active [facility] CLOPIDOG Allergy Active [facility] WARFARIN Allergy Active [facility] Family History Family Member Diagnosis Comments Start Date Stop Date Source Natural mother Diabetes [facility] Natural mother Hypertension [facility] Social History Social Habit Start Date Stop Date Quantity Comments Source History of tobacco Current smoker Un iversity of use [facility] Gender identity Universit y of [facility] Sexual orientation Univer sity of [facility] Exposure to 2022-10-23 2022-11-02 Not sure University of SARS-CoV-2 (event) 00:00:00 04:55:00 [facility] History of Social 2022-10-25 2022-10-25 Univers ity of function 00:00:00 00:00:00 [facility] Tobacco use and 2022-01-04 2022-01-04 Smokeless Universit y of exposure 00:00:00 00:00:00 tobacco non-user [facility] History SDMN 2020-02-18 2020-02-18 5 University o f Financial 00:00:00 00:00:00 [place] [facility] History [facility] Food 2020-02-18 2020-02-18 1 Univers ity of Worry 00:00:00 00:00:00 [place] [facility] History [facility] Food 2020-02-18 2020-02-18 1 Univers ity of Scarcity 00:00:00 00:00:00 [place] [facility] History [facility] 2020-02-18 2020-02-18 2 University o f Transport Med 00:00:00 00:00:00 [place] Medic al Branch History [facility] 2020-02-18 2020-02-18 2 University o f Transport Non-Med 00:00:00 00:00:00 [place] M edical Branch Alcohol intake 2018-08-21 2018-08-[address] [facility] 00:00:00 00:00:00 non-drinker of Medical Ce nter alcohol (finding) Cigarettes smoked 2016-06-07 2016-06-[address] [facility] current (pack per 00:00:00 00:00:00 Medical Center day) - Reported Cigarette 2016-06-07 2016-06-[address] [facility] pack-years 00:00:00 00:00:00 [facility] Social History 2015-01-10 2015-01-10 [facility] 21:45:28 21:45:28 Sex Assigned At [address] Liudmila kes 00:00:00 00:00:00 [facility] Smoking Status Start Date Stop Date Source Ex-smoker 2022-01-04 00:00:00 2022-01-04 00:00:00 [facility] Medications Ordered Filled Start Stop Current Ordering Indication Dosage Frequency Signature Comments Components Source Medication Medication Date Date Medication? Clinician (SIG) Name Name furosemide Yes [id number] 20mg Take 1 Univers (LASIX) 20 7-18 tablet by ity of mg tablet 00:00: mouth 00 every Medical morning as Branch needed for Other (leg swelling). furosemide Yes [id number] 20mg Take 1 Univers (LASIX) 20 7-18 tablet by ity of mg tablet 00:00: mouth 00 every Medical morning as Branch needed for Other (leg swelling). furosemide Yes [id number] 20mg Take 1 Univers (LASIX) 20 7-18 tablet by ity of mg tablet 00:00: mouth [place] 00 every Medical morning as Branch needed for Other (leg swelling). furosemide 2022-0 Yes [id number] 20mg Take 1 Univers (LASIX) 20 7-18 tablet by ity of mg tablet 00:00: mouth 00 every Medical morning as Branch needed for Other (leg swelling). multivit-mi Yes 1{tbl} Take 1 Un miki n/iron/foli 5-23 tablet by ity of c acid/K 15:13: mouth in [place] (BARIATRIC 07 the Medical MULTIVITAMI morning. Bran ch NS ORAL) multivit-mi Yes 1{tbl} Take 1 Un miki n/iron/foli 5-23 tablet by ity of c acid/K 15:13: mouth in [place] (BARIATRIC 07 the Medical MULTIVITAMI morning. Bran ch NS ORAL) multivit-mi Yes 1{tbl} Take 1 Un miki n/iron/foli 5-23 tablet by ity of c acid/K 15:13: mouth in [place] (BARIATRIC 07 the Medical MULTIVITAMI morning. Bran ch NS ORAL) multivit-mi Yes 1{tbl} Take 1 Un miki n/iron/foli 5-23 tablet by ity of c acid/K 15:13: mouth in [place] (BARIATRIC 07 the Medical MULTIVITAMI morning. Bran ch NS ORAL) multivit-mi Yes 1{tbl} Take 1 Un miki n/iron/foli 5-23 tablet by ity of c acid/K 15:13: mouth in [place] (BARIATRIC 07 the Medical MULTIVITAMI morning. Bran ch NS ORAL) multivit-mi Yes 1{tbl} Take 1 Un [place] n/iron/foli 5-23 tablet by ity of c acid/K 15:13: mouth in [place] (BARIATRIC 07 the Medical MULTIVITAMI morning. Bran ch NS ORAL) multivit-mi Yes 1{tbl} Take 1 Un [place] n/iron/foli 5-23 tablet by ity of c acid/K 15:13: mouth in [place] (BARIATRIC 07 the Medical MULTIVITAMI morning. Bran ch NS ORAL) multivit-mi 2023-0 Yes 1{tbl} Take 1 Un m[facility] n/iron/foli 11-02 tablet by ity of c acid/K 15:13: mouth in [place] (BARIATRIC 07 the Medical MULTIVITAMI morning. Bran ch NS ORAL) ketorolac 2022- No 30mg 30 mg, Unive rs (TORADOL) 11-02 Slow IV ity of injection 15:00: 14:37 [place], ONCE [place] 30 mg 00 :00 NOW, 1 Medical dose, On Branch e 11/02/22 at 1000, CADEN HYDROcodone 2022- No 1{tbl} 1 tablet, Univers -acetaminop 11-02 Oral, ity of hen (NORCO 14:15: 14:37 ONCE, 1 [place] 5) 5-325 mg 00 :00 dose, On [facility] diane tablet Tue Branch tablet 11/02/22 at 0915, CADEN FENTanyl PF No 50ug 50 mcg, Un miki (SUBLIMAZE 11-02 Slow IV ity o f (PF)) 12:30: 11:33 Push, [place] injection 00 :00 ONCE, 1 Medical 50 mcg dose, On Branch e 11/02/22 at 0730, Routine apixaban 2022- Yes 1447 Take 2 Univer s (ELIQUIS) 5 11-02 tablets by i ty of mg tablet 00:00: 04:59 [place] 00 :[place] (two) Medical times Branch daily for 7 days, THEN 1 tablet 2 (two) times daily for 83 days. Indication s: obstructio n of a blood vessel by a blood clot apixaban 2022- Yes 1447 Take 2 Univer s (ELIQUIS) 5 11-02 tablets by i ty of mg tablet 00:00: 04:59 [place] 00 :[place] (two) Medical times Branch daily for 7 days, THEN 1 tablet 2 (two) times daily for 83 days. Indication s: obstructio n of a blood vessel by a blood clot apixaban 2022-2022- Yes 1447 Take 2 Univer s (ELIQUIS) 5 11-02 tablets by i ty of mg tablet 00:00: 04:59 [place] 00 :[place] (two) Medical times Branch daily for 7 days, THEN 1 tablet 2 (two) times daily for 83 days. Indication s: obstructio n of a blood vessel by a blood clot apixaban 2022-0 2022- Yes 1447 Take 2 Univer s (ELIQUIS) 5 5-23 08-22 tablets by i ty of mg tablet 00:00: 04:59 [place] 00 :[place] (two) Medical times Branch daily for 7 days, THEN 1 tablet 2 (two) times daily for 83 days. Indication s: obstructio n of a blood vessel by a blood clot apixaban 2022-0 2022- Yes 1447 Take 2 Univer s (ELIQUIS) 5 5-23 08-22 tablets by i ty of mg tablet 00:00: 04:59 mouth [place] 00 :00 (two) Medical times Branch daily for 7 days, THEN 1 tablet 2 (two) times daily for 83 days. Indication s: obstructio n of a blood vessel by a blood clot apixaban 2022-0 2022- Yes 1447 Take 2 Univer s (ELIQUIS) 5 5-23 08-22 tablets by i ty of mg tablet 00:00: 04:59 [place] 00 :[place] (two) Medical times Branch daily for 7 days, THEN 1 tablet 2 (two) times daily for 83 days. Indication s: obstructio n of a blood vessel by a blood clot apixaban 2022-0 2022- Yes 1447 Take 2 Univer s (ELIQUIS) 5 5-23 08-22 tablets by i ty of mg tablet 00:00: 04:59 [place] 00 :00 (two) Medical times Branch daily for 7 days, THEN 1 tablet 2 (two) times daily for 83 days. Indication s: obstructio n of a blood vessel by a blood clot apixaban 2022-0 2022- Yes 1447 Take 2 Univer s (ELIQUIS) 5 5-23 08-22 tablets by i ty of mg tablet 00:00: 04:59 mouth [place] 00 :00 (two) Medical times Branch daily for 7 days, THEN 1 tablet 2 (two) times daily for 83 days. Indication s: obstructio n of a blood vessel by a blood clot HYDROcodone 2022-0 3- No 1{tbl} 1 tablet, Univers -acetaminop 5-15 05-15 Oral, ity of hen (NORCO 18:15: 18:24 ONCE, 1 [place] 5) 5-325 mg 00 :00 dose, On Medi diane tablet 1 Mon Branch tablet 10/25/22 at 1315, Routine, PACU HYDROcodone 2022-0 2023- No 1{tbl} 1 tablet, Univers -acetaminop 5-15 05-15 Oral, ity of hen (NORCO 18:15: 18:24 ONCE, 1 [place] 5) 5-325 mg 00 :00 dose, On Medi diane tablet 1 Mon Branch tablet 10/25/22 at 1315, Routine, PACU FENTanyl PF 0 Yes 25ug 25 mcg, Uni vers (SUBLIMAZE 5-15 Slow IV ity of (PF)) 18:03: Push, [place] injection 17 Q5MIN PRN, Medi diane 25 mcg 4 doses, Branch Starting on Tue10/25/22 at 1303, Until Discontinu ed, Routine, Pain (scale 4-6), PACU proMETHazin Yes 12.5mg 12.5 mg, Univers e 5-15 IV ity of (PHENERGAN) 18:03: Piggyback, [place] 12.5 mg in 17 at 200 Medical NS 50 mL IV mL/hr Branch piggyback Administer (CNR) over 15 Minutes, PRN, 1 dose, Starting on Tue10/25/22 at 1303, Until Discontinu ed, Routine, Nausea and Vomiting (N/V), PACU FENTanyl PF 2022-0 2022- No 25ug 25 mcg, Un miki (SUBLIMAZE 5-15 05-15 Slow IV ity o f (PF)) 18:03: 21:59 Push, [place] injection 17 :38 Q5MIN PRN, Medi diane 25 mcg 4 doses, Branch Starting on Tue10/25/22 at 1303, Until Tue10/25/22 at 1659, Routine, Pain (scale 4-6), PACU proMETHazin 2022-0 2022- No 12.5mg 12.5 mg, Univers e 5-15 05-15 IV ity of (PHENERGAN) 18:03: 21:59 Piggyback, [place] 12.5 mg in 17 :38 at 200 Medical NS 50 mL IV mL/hr Branch piggyback Administer (CNR) over 15 Minutes, PRN, 1 dose, Starting on Tue10/25/22 at 1303, Until Tue10/25/22 at 1659, Routine, Nausea and Vomiting (N/V), PACU EPINEPHrine 2022- No PRN, Unive rs 1:1,000 (1 10-25 05-15 Starting ity of mg/mL) 16:01: 18:03 on Tue [place] (ADRENALIN) 00 :07 10/25/22 at [place] [facility] 2 mL, 1101, Branch lidocaine Intra-op 2% (XYLOCAINE) 40 mL, sodium bicarbonate 1 mEq/mL (8.4 %) 10 mL in NaCl 0.9% (NS) 1,000 mL OR irrigation heparin 2022- No PRN, Univers 1,000 10-25 05-15 Starting ity of unit/mL 16:00: 18:03 on Tue [place] 5,000 Units 00 :07 10/25/22 at [place] in NaCl 1100, Branch 0.9% (NS) Intra-op 500 mL OR irrigation cyanocobala Yes INJECT 1 Un miki min 1,000 4-29 ML INTO ity of mcg/mL 00:00: THE MUSCLE [place] injection 00 EVERY Medical OTHER Branch MONTH cyanocobala Yes INJECT 1 Un [place]iki min 1,000 4-29 ML INTO ity of mcg/mL 00:00: THE MUSCLE [place] injection 00 EVERY Medical OTHER Branch MONTH cyanocobala Yes INJECT 1 Un m[place] min 1,000 4-29 ML INTO ity of mcg/mL 00:00: THE MUSCLE [place] injection 00 EVERY Medical OTHER Branch MONTH cyanocobala Yes INJECT 1 Un m[place] min 1,000 4-29 ML INTO ity of mcg/mL 00:00: THE MUSCLE [place] injection 00 EVERY Medical OTHER Branch MONTH cyanocobala Yes INJECT 1 Un miki min 1,000 4-29 ML INTO ity of mcg/mL 00:00: THE MUSCLE [place] injection 00 EVERY Medical OTHER Branch MONTH cyanocobala Yes INJECT 1 Un miki min 1,000 4-29 ML INTO ity of mcg/mL 00:00: THE MUSCLE [place] injection 00 EVERY Medical OTHER Branch MONTH cyanocobala Yes INJECT 1 Un miki min 1,000 4-29 ML INTO ity of mcg/mL 00:00: THE MUSCLE [place] injection 00 EVERY Medical OTHER Branch MONTH cyanocobala Yes INJECT 1 Un m[place] min 1,000 4-29 ML INTO ity of mcg/mL 00:00: THE MUSCLE [place] injection EVERY Medical OTHER Branch MONTH azithromyci 2022- No [id number] 250mg Take 1 Univers n 250 mg 10-07 tablet by ity o f tablet 00:00: 04:59 mouth in [place] 00 :00 the Medical morning Branch for 6 days. Take 500 mg day 1, then 250 mg days 2 to 5. Dexlansopra 2022- No 60mg Take 1 Uni vers zole 60 mg 10-04 capsule by it y of capsule 10:32: 00:00 mouth. [place] 35 :00 Medical Branch bromphenira 2022-2022- No [id number] 5mL Take 5 mL Univers mine-pseudo 10-04-05 by mouth 4 i ty of ephedrine-D 00:00: 04:59 (four) [place] M (BROMFED 00 :00 times Medical DM) 2-30-10 daily as Bran ch mg/5 mL needed for syrup Congestion /Allergies for up to 10 days. bromphenira 2022-0 2022- No [id number] 5mL Take 5 mL Univers mine-pseudo 10-04-05 by mouth 4 i ty of ephedrine-D 00:00: 04:59 (four) [place] (BROMFED 00 :00 times Medical DM) 2-30-10 daily as Bran ch mg/5 mL needed for syrup Congestion /Allergies for up to 10 days. bromphenira 2022-0 2022- No [id number] 5mL Take 5 mL Univers mine-pseudo 10-04 05-05 by mouth 4 i ty of ephedrine-D 00:00: 04:59 (four) [place] (BROMFED 00 :00 times Medical DM) 2-30-10 daily as Bran ch mg/5 mL needed for syrup Congestion /Allergies for up to 10 days. bromphenira 2022- No [id number] 5mL Take 5 mL Univers mine-pseudo 10-0405 by mouth 4 i ty of ephedrine-D 00:00: 04:59 (four) [place] (BROMFED 00 :00 times Medical DM) 2-30-10 daily as Bran ch mg/5 mL needed for syrup Congestion /Allergies for up to 10 days. bromphenira 2022-0 2022- No [id number] 5mL Take 5 mL Univers mine-pseudo 10-0405 by mouth 4 i ty of ephedrine-D 00:00: 04:59 (four) [place] (BROMFED 00 :00 times Medical DM) 2-30-10 daily as Bran ch mg/5 mL needed for syrup Congestion /Allergies for up to 10 days. bromphenira 2022-0 2022- No [id number] 5mL Take 5 mL Univers mine-pseudo 10-04 by mouth 4 i ty of ephedrine-D 00:00: 04:59 (four) [place] (BROMFED 00 :00 times Medical DM) 2-30-10 daily as Bran ch mg/5 mL needed for syrup Congestion /Allergies for up to 10 days. bromphenira 2022-0 2022- No [id number] 5mL Take 5 mL Univers mine-pseudo 10-04 by mouth 4 i ty of ephedrine-D 00:00: 04:59 (four) [place] (BROMFED 00 :00 times Medical DM) 2-30-10 daily as Bran ch mg/5 mL needed for syrup Congestion /Allergies for up to 10 days. bromphenira 0 2022- No [id number] 5mL Take 5 mL Univers mine-pseudo 10-0405 by mouth 4 i ty of ephedrine-D 00:00: 04:59 (four) [place] (BROMFED 00 :00 times Medical DM) 2-30-10 daily as Bran ch mg/5 mL needed for syrup Congestion /Allergies for up to 10 days. methylPREDN 2022- No [id number] Take by Univers ISolone 4 10-04 mouth ity of mg tablets 00:00: 04:59 SEE-INSTRU [place] 00 :00 CTIONS for Medical 6 days. Branch follow package directions methylPREDN 2022- No [id number] Take by [facility] [employer] 4 10-04 mouth ity of mg tablets 00:00: 04:59 SEE-INSTRU [place] 00 :00 CTIONS for Medical 6 days. Branch follow package directions methylPREDN 2022- No [id number] Take by [facility] [employer] 4 10-04 mouth ity of mg tablets 00:00: 04:59 SEE-INSTRU [place] 00 :00 CTIONS for Medical 6 days. Branch follow package directions methylPREDN 0 2022- No [id number] Take by [facility] [employer] 10-04 mouth ity of mg tablets 00:00: 04:59 SEE-INSTRU [place] 00 :00 CTIONS for Medical 6 days. Branch follow package directions methylPREDN 2022- No [id number] Take by [facility] [employer] 10-04 mouth ity of mg tablets 00:00: 04:59 SEE-INSTRU [place] 00 :00 CTIONS for Medical 6 days. Branch follow package directions methylPREDN 2022- No [id number] [facility] ity of mg tablets 00:00: 04:59 SEE-INSTRU [place] 00 :00 CTIONS for Medical 6 days. Branch follow package directions methylPREDN 2022- No [id number] Take by [facility] [employer] 10-04 mouth ity of mg tablets 00:00: 04:59 SEE-INSTRU [place] 00 :00 CTIONS for Medical 6 days. Branch follow package directions cyanocobala 2022-0 Yes [id number] 1000 mcg Univers min, 4-21 injection ity of vitamin 00:00: every [place] B-12, 1,000 00 other Medical mcg/mL month Branch injection cyanocobala 2022-0 Yes [id number] 1000 mcg Univers min, 4-21 injection ity of vitamin 00:00: every [place] B-12, 1,000 00 other Medical mcg/mL month Branch injection cyanocobala 2022-0 Yes [id number] 1000 mcg Univers min, 4-21 injection ity of vitamin 00:00: every [place] B-12, 1,000 00 other Medical mcg/mL month Branch injection cyanocobala 2023-0 Yes [id number] 1000 mcg Univers min, 4-21 injection ity of vitamin 00:00: every [place] B-12, 1,000 00 other Medical mcg/mL month Branch injection cyanocobala 2022-0 Yes [id number] 1000 mcg Univers min, 4-21 injection ity of vitamin 00:00: every [place] B-12, 1,000 00 other Medical mcg/mL month Branch injection cyanocobala 2022-0 Yes [id number] 1000 mcg Univers min, 4-21 injection ity of vitamin 00:00: every [place] B-12, 1,000 00 other Medical mcg/mL month Branch injection cyanocobala 2022-0 Yes [id number] 1000 mcg Univers min, 4-21 injection ity of vitamin 00:00: every [place] B-12, 1,000 00 other Medical mcg/mL month Branch injection cyanocobala 2022-0 Yes [id number] 1000 mcg Univers min, 4-21 injection ity of vitamin 00:00: every [place] B-12, 1,000 00 other Medical mcg/mL month Branch injection cyanocobala 2022-0 Yes [id number] 1000 mcg Univers min, 4-21 injection ity of vitamin 00:00: every [place] B-12, 1,000 00 other Medical mcg/mL month Branch injection cyanocobala 2022-0 Yes [id number] 1000 mcg Univers min, 4-21 injection ity of vitamin 00:00: every [place] B-12, 1,000 00 other Medical mcg/mL month Branch injection cyanocobala 2022-0 Yes [id number] 1000 mcg Univers min, 4-21 injection ity of vitamin 00:00: every [place] B-12, 1,000 00 other Medical mcg/mL month Branch injection cyanocobala 2022-0 Yes [id number] 1000 mcg Univers min, 4-21 injection ity of vitamin 00:00: every [place] B-12, 1,000 00 other Medical mcg/mL month Branch injection cyanocobala 2022-0 Yes [id number] 1000 mcg Univers min, 4-21 injection ity of vitamin 00:00: every [place] B-12, 1,000 00 other Medical mcg/mL month Branch injection cyanocobala 2022-0 Yes [id number] 1000 mcg Univers min, 4-21 injection ity of vitamin 00:00: every [place] B-12, 1,000 00 other Medical mcg/mL month Branch injection cyanocobala 2022-0 Yes [id number] 1000 mcg Univers min, 4-21 injection ity of vitamin 00:00: every [place] B-12, 1,000 00 other Medical mcg/mL month Branch injection cyanocobala 2022-0 Yes [id number] 1000 mcg Univers min, 4-21 injection ity of vitamin 00:00: every [place] B-12, 1,000 00 other Medical mcg/mL month Branch injection barium 2022-0 2022- No [id number] 30mL 30 mL, Uni vers sulfate-NO 09-30-20 Oral, ity of CHARGE- 15:00: 15:00 ONCE, 1 [place] (VARIBAR 00 :00 dose, On Medical NECTOR) 40 Josselyn Branch % (w/v) 09/30/22 at oral 1000, suspension Routine 30 mL barium 0 2022- No [id number] 30g 30 g, Univ ers sulfate 09-30 Oral, ity of (VARIBAR 15:00: 15:00 ONCE, 1 [place] THIN 00 :00 dose, On Medical LIQUID) 81 Josselyn Branch % (w/w) 09/30/22 at oral powder 1000, 30 g Routine vitamin 2022-0 2022- No [id number] 1000ug Un miki B-12 09-28-17 ity of (CYANOCOBAL 14:00: 17:14 [place] WHALEN) 00 :30 Medical tablet Branch 1,000 mcg vitamin 2022-0 2022- No [id number] 1000ug Un miki B-12 09-28-17 ity of (CYANOCOBAL 14:00: 17:14 [place] WHALEN) 00 :30 Medical tablet Branch 1,000 mcg cyanocobala 2022-0 2022- No [id number] 1000ug Univers min (DODEX) 09-27-17 ity of injection 18:00: 17:15 [place] 1,000 mcg 00 :00 Medical Branch cyanocobala 2022-0 2022- No [id number] 1000ug 1,000 mcg, Univers min (DODEX) 09-27-17 Intramuscu i ty of injection 18:00: 17:15 [place], ONCE, [place] 1,000 mcg 00 :00 1 dose, On [facility] Branch 09/27/22 at 1300, Routine cyanocobala 2023-0 3- No [id number] 1000ug Univers min (DODEX) 09-27 ity of injection 18:00: 17:15 [place] 1,000 mcg 00 :00 Medical Branch cyanocobala 2023-0 2023- No [id number] 1000ug 1,000 mcg, Univers min (DODEX) 09-27 Intramuscu i ty of injection 18:00: 17:15 lar, ONCE, [place] 1,000 mcg 00 :00 1 dose, On [facility] Branch 09/27/22 at 1300, Routine dicyclomine 2023-0 Yes 20mg Take 1 Univ ers 20 mg 4-13 tablet by ity of tablet 00:00: mouth [place] 00 every 8 Medical (eight) Branch hours as needed. dicyclomine 2023-0 Yes 20mg Take 1 Univ ers 20 mg 4-13 tablet by ity of tablet 00:00: mouth [place] 00 every 8 Medical (eight) Branch hours as needed. dicyclomine 2023-0 Yes 20mg Take 1 Univ ers 20 mg 4-13 tablet by ity of tablet 00:00: mouth [place] 00 every 8 Medical (eight) Branch hours as needed. dicyclomine 2023-0 Yes 20mg Take 1 Univ ers 20 mg 4-13 tablet by ity of tablet 00:00: mouth [place] 00 every 8 Medical (eight) Branch hours as needed. dicyclomine 2023-0 Yes 20mg Take 1 Univ ers 20 mg 4-13 tablet by ity of tablet 00:00: mouth [place] 00 every 8 Medical (eight) Branch hours as needed. dicyclomine 2023-0 Yes 20mg Take 1 Univ ers 20 mg 4-13 tablet by ity of tablet 00:00: mouth [place] 00 every 8 Medical (eight) Branch hours as needed. dicyclomine 2023-0 Yes 20mg Take 1 Univ ers 20 mg 4-13 tablet by ity of tablet 00:00: mouth [place] 00 every 8 Medical (eight) Branch hours as needed. dicyclomine 2023-0 Yes 20mg Take 1 Univ ers 20 mg 4-13 tablet by ity of tablet 00:00: mouth [place] 00 every 8 Medical (eight) Branch hours as needed. dicyclomine 2023-0 Yes 20mg Take 1 Univ ers 20 mg 4-13 tablet by ity of tablet 00:00: mouth [place] 00 every 8 Medical (eight) Branch hours as needed. dicyclomine 2023-0 Yes 20mg Take 1 Univ ers 20 mg 4-13 tablet by ity of tablet 00:00: mouth [place] 00 every 8 Medical (eight) Branch hours as needed. dicyclomine 2023-0 Yes 20mg Take 1 Univ ers 20 mg 4-13 tablet by ity of tablet 00:00: mouth [place] 00 every 8 Medical (eight) Branch hours as needed. dicyclomine 2023-0 Yes 20mg Take 1 Univ ers 20 mg 4-13 tablet by ity of tablet 00:00: mouth [place] 00 every 8 Medical (eight) Branch hours as needed. dicyclomine 2023-0 Yes 20mg Take 1 Univ ers 20 mg 4-13 tablet by ity of tablet 00:00: mouth [place] 00 every 8 Medical (eight) Branch hours as needed. dicyclomine 2023-0 Yes 20mg Take 1 Univ ers 20 mg 4-13 tablet by ity of tablet 00:00: mouth [place] 00 every 8 Medical (eight) Branch hours as needed. dicyclomine 2023-0 Yes 20mg Take 1 Univ ers 20 mg 4-13 tablet by ity of tablet 00:00: mouth [place] 00 every 8 Medical (eight) Branch hours as needed. dicyclomine 2023-0 Yes 20mg Take 1 Univ ers 20 mg 4-13 tablet by ity of tablet 00:00: mouth [place] 00 every 8 Medical (eight) Branch hours as needed. dicyclomine 2023-0 Yes 20mg Take 1 Univ ers 20 mg 4-13 tablet by ity of tablet 00:00: mouth [place] 00 every 8 Medical (eight) Branch hours as needed. dicyclomine 2023-0 Yes 20mg Take 1 Univ ers 20 mg 4-13 tablet by ity of tablet 00:00: mouth [place] 00 every 8 Medical (eight) Branch hours as needed. dicyclomine 2023-0 Yes 20mg Take 1 Univ ers 20 mg 4-13 tablet by ity of tablet 00:00: mouth [place] 00 every 8 Medical (eight) Branch hours as needed. dicyclomine 2023-0 Yes 20mg Take 1 Univ ers 20 mg 4-13 tablet by ity of tablet 00:00: mouth [place] 00 every 8 Medical (eight) Branch hours as needed. dicyclomine 2023-0 Yes 20mg Take 1 Univ ers 20 mg 4-13 tablet by ity of tablet 00:00: mouth [place] 00 every 8 Medical (eight) Branch hours as needed. ciprofloxac 2023-0 Yes 500mg Take 1 Uni vers in HCl 500 4-04 tablet by ity of mg tablet 00:00: mouth in [place] 00 the Medical morning Branch and 1 tablet in the evening. metroNIDAZO 2023-0 Yes 500mg Take 1 Uni vers LE 500 mg 4-04 tablet by ity o f tablet 00:00: mouth in 00 the Medical morning Branch and 1 tablet at noon and 1 tablet in the evening. ciprofloxac 2023-0 Yes 500mg Take 1 Uni vers in HCl 500 4-04 tablet by ity of mg tablet 00:00: mouth in [place] 00 the Medical morning Branch and 1 tablet in the evening. metroNIDAZO 2023-0 Yes 500mg Take 1 Uni vers LE 500 mg 4-04 tablet by ity o f tablet 00:00: mouth in 00 the Medical morning Branch and 1 tablet at noon and 1 tablet in the evening. ciprofloxac 2023-0 Yes 500mg Take 1 Uni vers in HCl 500 4-04 tablet by ity of mg tablet 00:00: mouth in [place] 00 the Medical morning Branch and 1 tablet in the evening. metroNIDAZO 2023-0 Yes 500mg Take 1 Uni vers LE 500 mg 4-04 tablet by ity o f tablet 00:00: mouth in 00 the Medical morning Branch and 1 tablet at noon and 1 tablet in the evening. ciprofloxac 2023-0 Yes 500mg Take 1 Uni vers in HCl 500 4-04 tablet by ity of mg tablet 00:00: mouth in [place] 00 the Medical morning Branch and 1 tablet in the evening. metroNIDAZO 2023-0 Yes 500mg Take 1 Uni vers LE 500 mg 4-04 tablet by ity o f tablet 00:00: mouth in 00 the Medical morning Branch and 1 tablet at noon and 1 tablet in the evening. ciprofloxac 2023-0 Yes 500mg Take 1 Uni vers in HCl 500 4-04 tablet by ity of mg tablet 00:00: mouth in [place] the Medical morning Branch and 1 tablet in the evening. metroNIDAZO 2023-0 Yes 500mg Take 1 Uni vers LE 500 mg 4-04 tablet by ity o f tablet 00:00: mouth in 00 the Medical morning Branch and 1 tablet at noon and 1 tablet in the evening. ciprofloxac 2023-0 Yes 500mg Take 1 Uni vers in HCl 500 4-04 tablet by ity of mg tablet 00:00: mouth in [place] the Medical morning Branch and 1 tablet in the evening. metroNIDAZO 2023-0 Yes 500mg Take 1 Uni vers LE 500 mg 4-04 tablet by ity o f tablet 00:00: mouth in the Medical morning Branch and 1 tablet at noon and 1 tablet in the evening. ciprofloxac 2023-0 Yes 500mg Take 1 Uni vers in HCl 500 4-04 tablet by ity of mg tablet 00:00: mouth in [facility] the Medical morning Branch and 1 tablet in the evening. metroNIDAZO 2023-0 Yes 500mg Take 1 Uni vers LE 500 mg 4-04 tablet by ity o f tablet 00:00: mouth in the Medical morning Branch and 1 tablet at noon and 1 tablet in the evening. ciprofloxac 2023-0 Yes 500mg Take 1 Uni vers in HCl 500 4-04 tablet by ity of mg tablet 00:00: mouth in the Medical morning Branch and 1 tablet in the evening. metroNIDAZO 2023-0 Yes 500mg Take 1 Uni vers LE 500 mg 4-04 tablet by ity o f tablet 00:00: mouth in the Medical morning Branch and 1 tablet at noon and 1 tablet in the evening. ciprofloxac 2023-0 Yes 500mg Take 1 Uni vers in HCl 500 4-04 tablet by ity of mg tablet 00:00: mouth in [place] morning Branch and 1 tablet in the evening. metroNIDAZO 2023-0 Yes 500mg Take 1 Uni vers LE 500 mg 4-04 tablet by ity o f tablet 00:00: mouth in [place] 00 the Medical morning Branch and 1 tablet at noon and 1 tablet in the evening. ciprofloxac 2023-0 Yes 500mg Take 1 Uni vers in HCl 500 4-04 tablet by ity of mg tablet 00:00: mouth in [place] the Medical morning Branch and 1 tablet in the evening. metroNIDAZO 2023-0 Yes 500mg Take 1 Uni vers LE 500 mg 4-04 tablet by ity o f tablet 00:00: mouth in 00 the Medical morning Branch and 1 tablet at noon and 1 tablet in the evening. ciprofloxac 2023-0 Yes 500mg Take 1 Uni vers in HCl 500 4-04 tablet by ity of mg tablet 00:00: mouth in [place] the Medical morning Branch and 1 tablet in the evening. metroNIDAZO 2023-0 Yes 500mg Take 1 Uni vers LE 500 mg 4-04 tablet by ity o f tablet 00:00: mouth in the Medical morning Branch and 1 tablet at noon and 1 tablet in the evening. ciprofloxac 2023-0 Yes 500mg Take 1 Uni vers in HCl 500 4-04 tablet by ity of mg tablet 00:00: mouth in the Medical morning Branch and 1 tablet in the evening. metroNIDAZO 2023-0 Yes 500mg Take 1 Uni vers LE 500 mg 4-04 tablet by ity o f tablet 00:00: mouth in the Medical morning Branch and 1 tablet at noon and 1 tablet in the evening. ciprofloxac 2023-0 Yes 500mg Take 1 Uni vers in HCl 500 4-04 tablet by ity of mg tablet 00:00: mouth in the Medical morning Branch and 1 tablet in the evening. metroNIDAZO 2023-0 Yes 500mg Take 1 Uni vers LE 500 mg 4-04 tablet by ity o f tablet 00:00: mouth in the Medical morning Branch and 1 tablet at noon and 1 tablet in the evening. ciprofloxac 2023-0 Yes 500mg Take 1 Uni vers in HCl 500 4-04 tablet by ity of mg tablet 00:00: mouth in [place] the Medical morning Branch and 1 tablet in the evening. metroNIDAZO 2023-0 Yes 500mg Take 1 Uni vers LE 500 mg 4-04 tablet by ity o f tablet 00:00: mouth in [place] 00 the Medical morning Branch and 1 tablet at noon and 1 tablet in the evening. ciprofloxac 2023-0 Yes 500mg Take 1 Uni vers in HCl 500 4-04 tablet by ity of mg tablet 00:00: mouth in [place] 00 the Medical morning Branch and 1 tablet in the evening. metroNIDAZO 2023-0 Yes 500mg Take 1 Uni vers LE 500 mg 4-04 tablet by ity o f tablet 00:00: mouth in 00 the Medical morning Branch and 1 tablet at noon and 1 tablet in the evening. ciprofloxac 2023-0 Yes 500mg Take 1 Uni vers in HCl 500 4-04 tablet by ity of mg tablet 00:00: mouth in [place] 00 the Medical morning Branch and 1 tablet in the evening. metroNIDAZO 2023-0 Yes 500mg Take 1 Uni vers LE 500 mg 4-04 tablet by ity o f tablet 00:00: mouth in 00 the Medical morning Branch and 1 tablet at noon and 1 tablet in the evening. ciprofloxac 2023-0 Yes 500mg Take 1 Uni vers in HCl 500 4-04 tablet by ity of mg tablet 00:00: mouth in [place] 00 the Medical morning Branch and 1 tablet in the evening. metroNIDAZO 2023-0 Yes 500mg Take 1 Uni vers LE 500 mg 4-04 tablet by ity o f tablet 00:00: mouth in 00 the Medical morning Branch and 1 tablet at noon and 1 tablet in the evening. ciprofloxac 2023-0 Yes 500mg Take 1 Uni vers in HCl 500 4-04 tablet by ity of mg tablet 00:00: mouth in [place] 00 the Medical morning Branch and 1 tablet in the evening. metroNIDAZO 2023-0 Yes 500mg Take 1 Uni vers LE 500 mg 4-04 tablet by ity o f tablet 00:00: mouth in 00 the Medical morning Branch and 1 tablet at noon and 1 tablet in the evening. ciprofloxac 2023-0 2023- No 500mg Take 1 Un miki in HCl 500 4-04 04-24 tablet by ity of mg tablet 00:00: 00:00 mouth in [place] 00 :00 the Medical morning Branch and 1 tablet in the evening. metroNIDAZO 2023-0 2023- No 500mg Take 1 Un miki LE 500 mg 4-04 04-24 tablet by ity of tablet 00:00: 00:00 mouth in [place] 00 :00 the [facility] Branch and 1 tablet at noon and 1 tablet in the evening. Dexlansopra 3-0 Yes 60mg Take 1 Univ ers zole 60 mg 3-02 capsule by ity of capsule 15:20: mouth. [address] Dexlansopra 3-0 Yes 60mg Take 1 Univ ers zole 60 mg 3-02 capsule by ity of capsule 15:20: mouth. [address] Dexlansopra 3-0 Yes 60mg Take 1 Univ ers zole 60 mg 3-02 capsule by ity of capsule 15:20: mouth. [address] Dexlansopra 3-0 Yes 60mg Take 1 Univ ers zole 60 mg 3-02 capsule by ity of capsule 15:20: mouth. [address] Dexlansopra 3-0 Yes 60mg Take 1 Univ ers zole 60 mg 3-02 capsule by ity of capsule 15:20: mouth. [address] Dexlansopra 3-0 Yes 60mg Take 1 Univ ers zole 60 mg 3-02 capsule by ity of capsule 15:20: mouth. [address] Dexlansopra 3-0 Yes 60mg Take 1 Univ ers zole 60 mg 3-02 capsule by ity of capsule 15:20: mouth. [address] Dexlansopra 3-0 Yes 60mg Take 1 Univ ers zole 60 mg 3-02 capsule by ity of capsule 15:20: mouth. [address] Dexlansopra 3-0 Yes 60mg Take 1 Univ ers zole 60 mg 3-02 capsule by ity of capsule 15:20: mouth. [address] Dexlansopra 3-0 Yes 60mg Take 1 Univ ers zole 60 mg 3-02 capsule by ity of capsule 15:20: mouth. [address] Dexlansopra 3-0 Yes 60mg Take 1 Univ ers zole 60 mg 3-02 capsule by ity of capsule 15:20: mouth. [address] Dexlansopra 3-0 Yes 60mg Take 1 Univ ers zole 60 mg 3-02 capsule by ity of capsule 15:20: mouth. [address] Dexlansopra 3-0 Yes 60mg Take 1 Univ ers zole 60 mg 3-02 capsule by ity of capsule 15:20: mouth. [place] [address] Medical Branch Dexlansopra 3-0 Yes 60mg Take 1 Univ ers zole 60 mg 3-02 capsule by ity of capsule 15:20: mouth. [place] [address] Medical Branch Dexlansopra 2022-0 Yes 60mg Take 1 Univ ers zole 60 mg 3-02 capsule by ity of capsule 15:20: mouth. [place] [address] Medical Branch Dexlansopra 3-0 Yes 60mg Take 1 Univ ers zole 60 mg 3-02 capsule by ity of capsule 15:20: mouth. [place] [address] Medical Branch Dexlansopra 3-0 Yes 60mg Take 1 Univ ers zole 60 mg 3-02 capsule by ity of capsule 15:20: mouth. [place] [address] Medical Branch Dexlansopra 2022-0 Yes 60mg Take 1 Univ ers zole 60 mg 3-02 capsule by ity of capsule 15:20: mouth. [place] [address] Medical Branch Dexlansopra 2022-0 Yes 60mg Take 1 Univ ers zole 60 mg 3-02 capsule by ity of capsule 15:20: mouth. [place] [address] Medical Branch Dexlansopra 3-0 Yes 60mg Take 1 Univ ers zole 60 mg 3-02 capsule by ity of capsule 15:20: mouth. [place] [address] Medical Branch DEXLANSOPRA 3-0 Yes 60mg Take 60 mg Univers ZOLE ORAL 3-02 by mouth ity of 00:00: in the [place] [address] morning. Medical Branch DEXLANSOPRA 2023-0 Yes 60mg Take 60 mg Univers ZOLE ORAL 3-02 by mouth ity of 00:00: in the [place] 00 morning. Medical Branch DEXLANSOPRA 2023-0 Yes 60mg Take 60 mg [facility] ZOLE ORAL 3-02 by mouth ity of 00:00: in the [place] 00 morning. Medical Branch DEXLANSOPRA 2023-0 Yes 60mg Take 60 mg [facility] ZOLE ORAL 3-02 by mouth ity of 00:00: in the [place] 00 morning. Medical Branch DEXLANSOPRA 2023-0 Yes 60mg Take 60 mg [facility] ZOLE ORAL 3-02 by mouth ity of 00:00: in the [place] 00 morning. Medical Branch DEXLANSOPRA 2023-0 Yes 60mg Take 60 mg [facility] ZOLE ORAL 3-02 by mouth ity of 00:00: in the [place] 00 morning. Medical Branch DEXLANSOPRA 2023-0 Yes 60mg Take 60 mg [facility] ZOLE ORAL 3-02 by mouth ity of 00:00: in the [place] 00 morning. Medical Branch DEXLANSOPRA 2023-0 Yes 60mg Take 60 mg [facility] ZOLE ORAL 3-02 by mouth ity of 00:00: in the [place] 00 morning. Medical Branch DEXLANSOPRA 2023-0 Yes 60mg Take 60 mg [facility] ZOLE ORAL 3-02 by mouth ity of 00:00: in the [place] 00 morning. Medical Branch DEXLANSOPRA 2023-0 Yes 60mg Take 60 mg [facility] ZOLE ORAL 3-02 by mouth ity of 00:00: in the [place] 00 morning. Medical Branch DEXLANSOPRA 2023-0 Yes 60mg Take 60 mg [facility] ZOLE ORAL 3-02 by mouth ity of 00:00: in the [place] 00 morning. Medical Branch DEXLANSOPRA 2023-0 Yes 60mg Take 60 mg [facility] ZOLE ORAL 3-02 by mouth ity of 00:00: in the [place] 00 morning. Medical Branch DEXLANSOPRA 2023-0 Yes 60mg Take 60 mg [facility] ZOLE ORAL 3-02 by mouth ity of 00:00: in the [place] 00 morning. Medical Branch DEXLANSOPRA 2023-0 Yes 60mg Take 60 mg [facility] ZOLE ORAL 3-02 by mouth ity of 00:00: in the [place] 00 morning. Medical Branch DEXLANSOPRA 2023-0 Yes 60mg Take 60 mg [facility] ZOLE ORAL 3-02 by mouth ity of 00:00: in the [place] 00 morning. Medical Branch DEXLANSOPRA 2023-0 Yes 60mg Take 60 mg [facility] ZOLE ORAL 3-02 by mouth ity of 00:00: in the [place] 00 morning. Medical Branch DEXLANSOPRA 2023-0 Yes 60mg Take 60 mg [facility] ZOLE ORAL 3-02 by mouth ity of 00:00: in the [place] 00 morning. Medical Branch DEXLANSOPRA 2023-0 Yes 60mg Take 60 mg [facility] ZOLE ORAL 3-02 by mouth ity of 00:00: in the [place] 00 morning. Medical Branch DEXLANSOPRA 2023-0 Yes 60mg Take 60 mg [facility] ZOLE ORAL 3-02 by mouth ity of 00:00: in the [place] 00 morning. Medical Branch DEXLANSOPRA 3-0 Yes 60mg Take 60 mg [facility] ZOLE ORAL 3-02 by mouth ity of 00:00: in the [place] 00 morning. Medical Branch DEXLANSOPRA 2022-0 Yes 60mg Take 60 mg [facility] ZOLE ORAL 3-02 by mouth ity of 00:00: in the [place] 00 morning. Medical Branch Self's 2022-0 Yes [id number] 15mL Take 15 mL [facility] magic 2-08 by mouth ity of mouthwash 00:00: every 6 [place] suspension 00 (six) Medical hours. Branch pantoprazol 2022-0 Yes [id number] 40mg Take 1 Univers e 40 mg EC 2-08 tablet by ity of tablet 00:00: mouth in [place] 00 the Medical morning Branch and 1 tablet in the evening. ondansetron 2022-0 Yes [id number] 4mg Take 1 Univers 4 mg 2-08 tablet by ity of disintegrat 00:00: mouth [place] ing tablet 00 every 4 Medica l (four) Branch hours as needed for Nausea and Vomiting (N/V). Self's 2022-0 Yes [id number] 15mL Take 15 mL [facility] magic 2-08 by mouth ity of mouthwash 00:00: every 6 [place] suspension 00 (six) Medical hours. Branch pantoprazol 2022-0 Yes [id number] 40mg Take 1 Univers e 40 mg EC 2-08 tablet by ity of tablet 00:00: mouth in [place] 00 the Medical morning Branch and 1 tablet in the evening. ondansetron 2022-0 Yes [id number] 4mg Take 1 Univers 4 mg 2-08 tablet by ity of disintegrat 00:00: mouth [place] ing tablet 00 every 4 Medica l (four) Branch hours as needed for Nausea and Vomiting (N/V). Self's 2022-0 Yes [id number] 15mL Take 15 mL [facility] magic 2-08 by mouth ity of mouthwash 00:00: every 6 [place] suspension 00 (six) Medical hours. Branch pantoprazol 2022-0 Yes [id number] 40mg Take 1 Univers e 40 mg EC 2-08 tablet by ity of tablet 00:00: mouth in [place] 00 the Medical morning Branch and 1 tablet in the evening. ondansetron 2022-0 Yes [id number] 4mg Take 1 Univers 4 mg 2-08 tablet by ity of disintegrat 00:00: mouth [place] ing tablet 00 every 4 Medica l (four) Branch hours as needed for Nausea and Vomiting (N/V). Self's 2022-0 Yes [id number] 15mL Take 15 mL [facility] magic 2-08 by mouth ity of mouthwash 00:00: every 6 [place] suspension 00 (six) Medical hours. Branch pantoprazol 2022-0 Yes [id number] 40mg Take 1 Univers e 40 mg EC 2-08 tablet by ity of tablet 00:00: mouth in [place] 00 the Medical morning Branch and 1 tablet in the evening. ondansetron 2022-0 Yes [id number] 4mg Take 1 Univers 4 mg 2-08 tablet by ity of disintegrat 00:00: mouth [place] ing tablet 00 every 4 Medica l (four) Branch hours as needed for Nausea and Vomiting (N/V). Eslf's Yes [id number] 15mL Take 15 mL [facility] magic 2-08 by mouth ity of mouthwash 00:00: every 6 [place] suspension 00 (six) Medical hours. Branch pantoprazol 2022-0 Yes [id number] 40mg Take 1 Univers e 40 mg EC 2-08 tablet by ity of tablet 00:00: mouth in [place] 00 the Medical morning Branch and 1 tablet in the evening. ondansetron 2022-0 Yes [id number] 4mg Take 1 Univers 4 mg 2-08 tablet by ity of disintegrat 00:00: mouth [place] ing tablet 00 every 4 Medica l (four) Branch hours as needed for Nausea and Vomiting (N/V). Self's Yes [id number] 15mL Take 15 mL [facility] magic 2-08 by mouth ity of mouthwash 00:00: every 6 [place] suspension 00 (six) Medical hours. Branch pantoprazol 2022-0 Yes [id number] 40mg Take 1 Univers e 40 mg EC 2-08 tablet by ity of tablet 00:00: mouth in [place] 00 the Medical morning Branch and 1 tablet in the evening. ondansetron 2022-0 Yes [id number] 4mg Take 1 Univers 4 mg 2-08 tablet by ity of disintegrat 00:00: mouth [place] ing tablet 00 every 4 Medica l (four) Branch hours as needed for Nausea and Vomiting (N/V). Self's Yes [id number] 15mL Take 15 mL [facility] magic 2-08 by mouth ity of mouthwash 00:00: every 6 [place] suspension 00 (six) Medical hours. Branch pantoprazol 0 Yes [id number] 40mg Take 1 Univers e 40 mg EC 2-08 tablet by ity of tablet 00:00: mouth in [place] 00 the Medical morning Branch and 1 tablet in the evening. ondansetron 2022- Yes [id number] 4mg Take 1 Univers 4 mg 2-08 tablet by ity of disintegrat 00:00: mouth [place] ing tablet 00 every 4 Medica l (four) Branch hours as needed for Nausea and Vomiting (N/V). Self's Yes [id number] 15mL Take 15 mL [facility] magic 2-08 by mouth ity of mouthwash 00:00: every 6 [place] suspension 00 (six) Medical hours. Branch pantoprazol 2022- Yes [id number] 40mg Take 1 Univers e 40 mg EC 2-08 tablet by ity of tablet 00:00: mouth in [place] 00 the Medical morning Branch and 1 tablet in the evening. ondansetron 2022-0 Yes [id number] 4mg Take 1 Univers 4 mg 2-08 tablet by ity of disintegrat 00:00: mouth [place] ing tablet 00 every 4 Medica l (four) Branch hours as needed for Nausea and Vomiting (N/V). Self's Yes [id number] 15mL Take 15 mL [facility] magic 2-08 by mouth ity of mouthwash 00:00: every 6 [place] suspension 00 (six) Medical hours. Branch pantoprazol 2022-0 Yes [id number] 40mg Take 1 Univers e 40 mg EC 2-08 tablet by ity of tablet 00:00: mouth in [place] 00 the Medical morning Branch and 1 tablet in the evening. ondansetron 2022-0 Yes [id number] 4mg Take 1 Univers 4 mg 2-08 tablet by ity of disintegrat 00:00: mouth [place] ing tablet 00 every 4 Medica l (four) Branch hours as needed for Nausea and Vomiting (N/V). Aramis's Yes [id number] 15mL Take 15 mL [facility] magic 2-08 by mouth ity of mouthwash 00:00: every 6 [place] suspension 00 (six) Medical hours. Branch pantoprazol 2022-0 Yes [id number] 40mg Take 1 Univers e 40 mg EC 2-08 tablet by ity of tablet 00:00: mouth in [place] 00 the Medical morning Branch and 1 tablet in the evening. ondansetron 2022-0 Yes [id number] 4mg Take 1 Univers 4 mg 2-08 tablet by ity of disintegrat 00:00: mouth [place] ing tablet 00 every 4 Medica l (four) Branch hours as needed for Nausea and Vomiting (N/V). Self's Yes [id number] 15mL Take 15 mL [facility] magic 2-08 by mouth ity of mouthwash 00:00: every 6 [place] suspension 00 (six) Medical hours. Branch pantoprazol 2022-0 Yes [id number] 40mg Take 1 Univers e 40 mg EC 2-08 tablet by ity of tablet 00:00: mouth in [place] 00 the Medical morning Branch and 1 tablet in the evening. ondansetron 2022-0 Yes [id number] 4mg Take 1 Univers 4 mg 2-08 tablet by ity of disintegrat 00:00: mouth [place] ing tablet 00 every 4 Medica l (four) Branch hours as needed for Nausea and Vomiting (N/V). Self's Yes [id number] 15mL Take 15 mL [facility] magic 2-08 by mouth ity of mouthwash 00:00: every 6 [place] suspension 00 (six) Medical hours. Branch pantoprazol 2022-0 Yes [id number] 40mg Take 1 Univers e 40 mg EC 2-08 tablet by ity of tablet 00:00: mouth in [place] 00 the Medical morning Branch and 1 tablet in the evening. ondansetron 2022-0 Yes [id number] 4mg Take 1 Univers 4 mg 2-08 tablet by ity of disintegrat 00:00: mouth [place] ing tablet 00 every 4 Medica l (four) Branch hours as needed for Nausea and Vomiting (N/V). Self's Yes [id number] 15mL Take 15 mL [facility] magic 2-08 by mouth ity of mouthwash 00:00: every 6 [place] suspension 00 (six) Medical hours. Branch pantoprazol 2022-0 Yes [id number] 40mg Take 1 Univers e 40 mg EC 2-08 tablet by ity of tablet 00:00: mouth in [place] 00 the Medical morning Branch and 1 tablet in the evening. ondansetron 2022-0 Yes [id number] 4mg Take 1 Univers 4 mg 2-08 tablet by ity of disintegrat 00:00: mouth [place] ing tablet 00 every 4 Medica l (four) Branch hours as needed for Nausea and Vomiting (N/V). Aramis's 2022-0 Yes [id number] 15mL Take 15 mL [facility] magic 2-08 by mouth ity of mouthwash 00:00: every 6 [place] suspension 00 (six) Medical hours. Branch pantoprazol 2022-0 Yes [id number] 40mg Take 1 Univers e 40 mg EC 2-08 tablet by ity of tablet 00:00: mouth in [place] 00 the Medical morning Branch and 1 tablet in the evening. ondansetron 2022-0 Yes [id number] 4mg Take 1 Univers 4 mg 2-08 tablet by ity of disintegrat 00:00: mouth [place] ing tablet 00 every 4 Medica l (four) Branch hours as needed for Nausea and Vomiting (N/V). Aramis's 2022-0 Yes [id number] 15mL Take 15 mL [facility] magic 2-08 by mouth ity of mouthwash 00:00: every 6 [place] suspension 00 (six) Medical hours. Branch pantoprazol 2022-0 Yes [id number] 40mg Take 1 Univers e 40 mg EC 2-08 tablet by ity of tablet 00:00: mouth in [place] 00 the Medical morning Branch and 1 tablet in the evening. ondansetron 2022-0 Yes [id number] 4mg Take 1 Univers 4 mg 2-08 tablet by ity of disintegrat 00:00: mouth [place] ing tablet 00 every 4 Medica l (four) Branch hours as needed for Nausea and Vomiting (N/V). Aramis's 2022-0 Yes [id number] 15mL Take 15 mL [facility] magic 2-08 by mouth ity of mouthwash 00:00: every 6 [place] suspension 00 (six) Medical hours. Branch pantoprazol 2022-0 Yes [id number] 40mg Take 1 Univers e 40 mg EC 2-08 tablet by ity of tablet 00:00: mouth in [place] 00 the Medical morning Branch and 1 tablet in the evening. ondansetron 3-0 Yes [id number] 4mg Take 1 Univers 4 mg 2-08 tablet by ity of disintegrat 00:00: mouth [place] ing tablet 00 every 4 Medica l (four) Branch hours as needed for Nausea and Vomiting (N/V). Self's 2022-0 Yes [id number] 15mL Take 15 mL [facility] magic 2-08 by mouth ity of mouthwash 00:00: every 6 [place] suspension 00 (six) Medical hours. Branch pantoprazol 2022-0 Yes [id number] 40mg Take 1 Univers e 40 mg EC 2-08 tablet by ity of tablet 00:00: mouth in [place] 00 the Medical morning Branch and 1 tablet in the evening. ondansetron 2022-0 Yes [id number] 4mg Take 1 Univers 4 mg 2-08 tablet by ity of disintegrat 00:00: mouth [place] ing tablet 00 every 4 Medica l (four) Branch hours as needed for Nausea and Vomiting (N/V). Self's 2022-0 Yes [id number] 15mL Take 15 mL [facility] magic 2-08 by mouth ity of mouthwash 00:00: every 6 [place] suspension 00 (six) Medical hours. Branch pantoprazol 2022-0 Yes [id number] 40mg Take 1 Univers e 40 mg EC 2-08 tablet by ity of tablet 00:00: mouth in [place] 00 the Medical morning Branch and 1 tablet in the evening. ondansetron 2022-0 Yes [id number] 4mg Take 1 Univers 4 mg 2-08 tablet by ity of disintegrat 00:00: mouth [place] ing tablet 00 every 4 Medica l (four) Branch hours as needed for Nausea and Vomiting (N/V). Self's 2022-0 Yes [id number] 15mL Take 15 mL [facility] magic 2-08 by mouth ity of mouthwash 00:00: every 6 [place] suspension 00 (six) Medical hours. Branch pantoprazol 3-0 Yes [id number] 40mg Take 1 Univers e 40 mg EC 2-08 tablet by ity of tablet 00:00: mouth in [place] 00 the Medical morning Branch and 1 tablet in the evening. ondansetron 2022-0 Yes [id number] 4mg Take 1 Univers 4 mg 2-08 tablet by ity of disintegrat 00:00: mouth [place] ing tablet 00 every 4 Medica l (four) Branch hours as needed for Nausea and Vomiting (N/V). Self's Yes [id number] 15mL Take 15 mL [facility] magic 2-08 by mouth ity of mouthwash 00:00: every 6 [place] suspension 00 (six) Medical hours. Branch pantoprazol 2022-0 Yes [id number] 40mg Take 1 Univers e 40 mg EC 2-08 tablet by ity of tablet 00:00: mouth in [place] 00 the Medical morning Branch and 1 tablet in the evening. ondansetron 2022-0 Yes [id number] 4mg Take 1 Univers 4 mg 2-08 tablet by ity of disintegrat 00:00: mouth [place] ing tablet 00 every 4 Medica l (four) Branch hours as needed for Nausea and Vomiting (N/V). Self's Yes [id number] 15mL Take 15 mL [facility] magic 2-08 by mouth ity of mouthwash 00:00: every 6 [place] suspension 00 (six) Medical hours. Branch pantoprazol 2022-0 Yes [id number] 40mg Take 1 Univers e 40 mg EC 2-08 tablet by ity of tablet 00:00: mouth in [place] 00 the Medical morning Branch and 1 tablet in the evening. ondansetron 2022-0 Yes [id number] 4mg Take 1 Univers 4 mg 2-08 tablet by ity of disintegrat 00:00: mouth [place] ing tablet 00 every 4 Medica l (four) Branch hours as needed for Nausea and Vomiting (N/V). Self's Yes [id number] 15mL Take 15 mL [facility] magic 2-08 by mouth ity of mouthwash 00:00: every 6 [place] suspension 00 (six) Medical hours. Branch pantoprazol 2022-0 Yes [id number] 40mg Take 1 Univers e 40 mg EC 2-08 tablet by ity of tablet 00:00: mouth in [place] 00 the Medical morning Branch and 1 tablet in the evening. ondansetron 2022-0 Yes [id number] 4mg Take 1 Univers 4 mg 2-08 tablet by ity of disintegrat 00:00: mouth [place] ing tablet 00 every 4 Medica l (four) Branch hours as needed for Nausea and Vomiting (N/V). Aramis's Yes [id number] 15mL Take 15 mL [facility] magic 2-08 by mouth ity of mouthwash 00:00: every 6 [place] suspension 00 (six) Medical hours. Branch pantoprazol Yes [id number] 40mg Take 1 Univers e 40 mg EC 2-08 tablet by ity of tablet 00:00: mouth in [place] 00 the Medical morning Branch and 1 tablet in the evening. ondansetron 2022-0 Yes [id number] 4mg Take 1 Univers 4 mg 2-08 tablet by ity of disintegrat 00:00: mouth [place] ing tablet 00 every 4 Medica l (four) Branch hours as needed for Nausea and Vomiting (N/V). Self's Yes [id number] 15mL Take 15 mL [facility] magic 2-08 by mouth ity of mouthwash 00:00: every 6 [place] suspension 00 (six) Medical hours. Branch pantoprazol 2022- Yes [id number] 40mg Take 1 Univers e 40 mg EC 2-08 tablet by ity of tablet 00:00: mouth in [place] 00 the Medical morning Branch and 1 tablet in the evening. ondansetron 2022-0 Yes [id number] 4mg Take 1 Univers 4 mg 2-08 tablet by ity of disintegrat 00:00: mouth [place] ing tablet 00 every 4 Medica l (four) Branch hours as needed for Nausea and Vomiting (N/V). Self's Yes [id number] 15mL Take 15 mL [facility] magic 2-08 by mouth ity of mouthwash 00:00: every 6 [place] suspension 00 (six) Medical hours. Branch pantoprazol 2022-0 Yes [id number] 40mg Take 1 Univers e 40 mg EC 2-08 tablet by ity of tablet 00:00: mouth in [place] 00 the Medical morning Branch and 1 tablet in the evening. ondansetron 2022-0 Yes [id number] 4mg Take 1 [facility] 4 mg 2-08 tablet by ity of disintegrat 00:00: mouth [place] ing tablet 00 every 4 Medica l (four) Branch hours as needed for Nausea and Vomiting (N/V). Self's Yes [id number] 15mL Take 15 mL [facility] magic 2-08 by mouth ity of mouthwash 00:00: every 6 [place] suspension 00 (six) Medical hours. Branch pantoprazol 2022-0 Yes [id number] 40mg Take 1 Univers e 40 mg EC 2-08 tablet by ity of tablet 00:00: mouth in [place] 00 the Medical morning Branch and 1 tablet in the evening. ondansetron 2022-0 Yes [id number] 4mg Take 1 [facility] 4 mg 2-08 tablet by ity of disintegrat 00:00: mouth [place] ing tablet 00 every 4 Medica l (four) Branch hours as needed for Nausea and Vomiting (N/V). Self's Yes [id number] 15mL Take 15 mL [facility] magic 2-08 by mouth ity of mouthwash 00:00: every 6 [place] suspension 00 (six) Medical hours. Branch pantoprazol 2022-0 Yes [id number] 40mg Take 1 Univers e 40 mg EC 2-08 tablet by ity of tablet 00:00: mouth in [place] 00 the Medical morning Branch and 1 tablet in the evening. ondansetron 2022-0 Yes [id number] 4mg Take 1 [facility] 4 mg 2-08 tablet by ity of disintegrat 00:00: mouth [place] ing tablet 00 every 4 Medica l (four) Branch hours as needed for Nausea and Vomiting (N/V). Self's Yes [id number] 15mL Take 15 mL [facility] magic 2-08 by mouth ity of mouthwash 00:00: every 6 [place] suspension 00 (six) Medical hours. Branch pantoprazol 2022-0 Yes [id number] 40mg Take 1 [facility] e 40 mg EC 2-08 tablet by ity of tablet 00:00: mouth in [place] 00 the Medical morning Branch and 1 tablet in the evening. ondansetron 2022-0 Yes [id number] 4mg Take 1 [facility] 4 mg 2-08 tablet by ity of disintegrat 00:00: mouth [place] ing tablet 00 every 4 Medica l (four) Branch hours as needed for Nausea and Vomiting (N/V). Self's Yes [id number] 15mL Take 15 mL [facility] magic 2-08 by mouth ity of mouthwash 00:00: every 6 [place] suspension 00 (six) Medical hours. Branch pantoprazol 2023-0 Yes [id number] 40mg Take 1 [facility] e 40 mg EC 2-08 tablet by ity of tablet 00:00: mouth in [place] 00 the Medical morning Branch and 1 tablet in the evening. ondansetron 2023-0 Yes [id number] 4mg Take 1 [facility] 4 mg 2-08 tablet by ity of disintegrat 00:00: mouth [place] ing tablet 00 every 4 Medica l (four) Branch hours as needed for Nausea and Vomiting (N/V). pantoprazol 2023-0 Yes [id number] 40mg Take 1 [facility] e 40 mg EC 2-08 tablet by ity of tablet 00:00: mouth in [place] 00 the Medical morning Branch and 1 tablet in the evening. ondansetron 2023-0 Yes [id number] 4mg Take 1 [facility] 4 mg 2-08 tablet by ity of disintegrat 00:00: mouth [place] ing tablet 00 every 4 Medica l (four) Branch hours as needed for Nausea and Vomiting (N/V). pantoprazol 2023-0 Yes [id number] 40mg Take 1 [facility] e 40 mg EC 2-08 tablet by ity of tablet 00:00: mouth in [place] the Medical morning Branch and 1 tablet in the evening. ondansetron 2023-0 Yes [id number] 4mg Take 1 [facility] 4 mg 2-08 tablet by ity of disintegrat 00:00: mouth [place] ing tablet 00 every 4 Medica l (four) Branch hours as needed for Nausea and Vomiting (N/V). pantoprazol 2023-0 Yes [id number] 40mg Take 1 [facility] e 40 mg EC 2-08 tablet by ity of tablet 00:00: mouth in [place] the Medical morning Branch and 1 tablet in the evening. ondansetron 2023-0 Yes [id number] 4mg Take 1 [facility] 4 mg 2-08 tablet by ity of disintegrat 00:00: mouth [place] ing tablet 00 every 4 Medica l (four) Branch hours as needed for Nausea and Vomiting (N/V). pantoprazol 2023-0 Yes [id number] 40mg Take 1 [facility] e 40 mg EC 2-08 tablet by ity of tablet 00:00: mouth in [place] [address] the Medical morning Branch and 1 tablet in the evening. ondansetron 2023-0 Yes [id number] 4mg Take 1 [facility] 4 mg 2-08 tablet by ity of disintegrat 00:00: mouth [place] ing tablet 00 every 4 Medica l (four) Branch hours as needed for Nausea and Vomiting (N/V). pantoprazol 2023-0 Yes [id number] 40mg Take 1 [facility] e 40 mg EC 2-08 tablet by ity of tablet 00:00: mouth in [place] 00 the Medical morning Branch and 1 tablet in the evening. ondansetron 2023-0 Yes [id number] 4mg Take 1 [facility] 4 mg 2-08 tablet by ity of disintegrat 00:00: mouth [place] ing tablet 00 every 4 Medica l (four) Branch hours as needed for Nausea and Vomiting (N/V). pantoprazol 3-0 Yes [id number] 40mg Take 1 [facility] e 40 mg EC 2-08 tablet by ity of tablet 00:00: mouth in [place] 00 the Medical morning Branch and 1 tablet in the evening. ondansetron 3-0 Yes [id number] 4mg Take 1 [facility] 4 mg 2-08 tablet by ity of disintegrat 00:00: mouth [place] ing tablet 00 every 4 Medica l (four) Branch hours as needed for Nausea and Vomiting (N/V). pantoprazol 2023-0 Yes [id number] 40mg Take 1 [facility] e 40 mg EC 2-08 tablet by ity of tablet 00:00: mouth in [place] [address] the Medical morning Branch and 1 tablet in the evening. pantoprazol 2023-0 Yes [id number] 40mg Take 1 [facility] e 40 mg EC 2-08 tablet by ity of tablet 00:00: mouth in [place] [address] the Medical morning Branch and 1 tablet in the evening. pantoprazol 2023-0 Yes [id number] 40mg Take 1 [facility] e 40 mg EC 2-08 tablet by ity of tablet 00:00: mouth in [place] 00 the Medical morning Branch and 1 tablet in the evening. pantoprazol 2023-0 Yes [id number] 40mg Take 1 [facility] e 40 mg EC 2-08 tablet by ity of tablet 00:00: mouth in [place] [address] the Medical morning Branch and 1 tablet in the evening. pantoprazol 2023-0 Yes [id number] 40mg Take 1 [facility] 40 mg EC 2-08 tablet by ity of tablet 00:00: mouth in [place] [address] the Medical morning Branch and 1 tablet in the evening. pantoprazol 2023-0 Yes [id number] 40mg Take 1 [facility] e 40 mg EC 2-08 tablet by ity of tablet 00:00: mouth in [place] 00 the Medical morning Branch and 1 tablet in the evening. pantoprazol 2023-0 Yes [id number] 40mg Take 1 [facility] e 40 mg EC 2-08 tablet by ity of tablet 00:00: mouth in [place] 00 the Medical morning Branch and 1 tablet in the evening. pantoprazol 2023-0 Yes [id number] 40mg Take 1 [facility] e 40 mg EC 2-08 tablet by ity of tablet 00:00: mouth in [place] 00 the Medical morning Branch and 1 tablet in the evening. pantoprazol 2023-0 Yes [id number] 40mg Take 1 [facility] e 40 mg EC 2-08 tablet by ity of tablet 00:00: mouth in [place] [address] the Medical morning Branch and 1 tablet in the evening. pantoprazol 2023-0 Yes [id number] 40mg Take 1 [facility] e 40 mg EC 2-08 tablet by ity of tablet 00:00: mouth in [place] [address] the Medical morning Branch and 1 tablet in the evening. ondansetron 2022-0 2022- No [id number] 4mg Take 1 [facility] 4 mg 2-08 04-27 tablet by ity of disintegrat 00:00: 00:[place] tablet 00 :00 every 4 Medica l (four) Branch hours as needed for Nausea and Vomiting (N/V). ondansetron 2022-0 2022- No [id number] 4mg Take 1 [facility] 4 mg 2-08 04-27 tablet by ity of disintegrat 00:00: 00:[place] tablet 00 :00 every 4 Medica l (four) Branch hours as needed for Nausea and Vomiting (N/V). ondansetron 3-0 2022- No [id number] 4mg Take 1 [facility] 4 mg 2-08 04-27 tablet by ity of disintegrat 00:00: 00:00 mouth [place] tablet 00 :00 every 4 Medica l (four) Branch hours as needed for Nausea and Vomiting (N/V). ondansetron 3-0 2022- No [id number] 4mg Take 1 [facility] 4 mg 07-21 tablet by ity of disintegrat 00:00: 00:00 [place] tablet 00 :00 every 4 Medica l (four) Branch hours as needed for Nausea and Vomiting (N/V). Self's 2022- No [id number] 15mL Take 15 mL [facility] magic 07-21 by mouth ity of mouthwash 00:00: 00:00 every 6 [place] suspension 00 :00 (six) Medical hours. Branch pregabalin 0 Yes [id number] 1 cap po [facility] 75 mg 1-04 TID prn ity of capsule 00:00: low back [place] 00 pain. May Medical take extra Branch capsule once per day. pregabalin 2022-0 Yes [id number] 1 cap po [facility] 75 mg 1-04 TID prn ity of capsule 00:00: low back [place] 00 pain. May Medical take extra Branch capsule once per day. pregabalin 2022-0 Yes [id number] 1 cap po [facility] 75 mg 1-04 TID prn ity of capsule 00:00: low back [place] 00 pain. May Medical take extra Branch capsule once per day. pregabalin 2022-0 Yes [id number] 1 cap po [facility] 75 mg 1-04 TID prn ity of capsule 00:00: low back [place] 00 pain. May Medical take extra Branch capsule once per day. pregabalin 2022-0 Yes [id number] 1 cap po [facility] 75 mg 1-04 TID prn ity of capsule 00:00: low back [place] 00 pain. May Medical take extra Branch capsule once per day. pregabalin 2022-0 Yes [id number] 1 cap po [facility] 75 mg 1-04 TID prn ity of capsule 00:00: low back [place] 00 pain. May Medical take extra Branch capsule once per day. pregabalin 2022-0 Yes [id number] 1 cap po [facility] 75 mg 1-04 TID prn ity of capsule 00:00: low back [place] 00 pain. May Medical take extra Branch capsule once per day. pregabalin 2022-0 Yes [id number] 1 cap po [facility] 75 mg 1-04 TID prn ity of capsule 00:00: low back [place] 00 pain. May Medical take extra Branch capsule once per day. pregabalin 2023-0 Yes [id number] 1 cap po [facility] 75 mg 1-04 TID prn ity of capsule 00:00: low back [place] 00 pain. May Medical take extra Branch capsule once per day. pregabalin 2023-0 Yes [id number] 1 cap po [facility] 75 mg 1-04 TID prn ity of capsule 00:00: low back [place] 00 pain. May Medical take extra Branch capsule once per day. pregabalin 2023-0 Yes [id number] 1 cap po [facility] 75 mg 1-04 TID prn ity of capsule 00:00: low back [place] 00 pain. May Medical take extra Branch capsule once per day. pregabalin 2023-0 Yes [id number] 1 cap po [facility] 75 mg 1-04 TID prn ity of capsule 00:00: low back [place] 00 pain. May Medical take extra Branch capsule once per day. pregabalin 2023-0 Yes [id number] 1 cap po [facility] 75 mg 1-04 TID prn ity of capsule 00:00: low back [place] 00 pain. May Medical take extra Branch capsule once per day. pregabalin 2023-0 Yes [id number] 1 cap po [facility] 75 mg 1-04 TID prn ity of capsule 00:00: low back [place] 00 pain. May Medical take extra Branch capsule once per day. pregabalin 2023-0 Yes [id number] 1 cap po [facility] 75 mg 1-04 TID prn ity of capsule 00:00: low back [place] 00 pain. May Medical take extra Branch capsule once per day. pregabalin 2023-0 Yes [id number] 1 cap po [facility] 75 mg 1-04 TID prn ity of capsule 00:00: low back [place] 00 pain. May Medical take extra Branch capsule once per day. pregabalin 2023-0 Yes [id number] 1 cap po [facility] 75 mg 1-04 TID prn ity of capsule 00:00: low back [place] 00 pain. May Medical take extra Branch capsule once per day. pregabalin 2023-0 Yes [id number] 1 cap po [facility] 75 mg 1-04 TID prn ity of capsule 00:00: low back [place] 00 pain. May Medical take extra Branch capsule once per day. pregabalin 2023-0 Yes [id number] 1 cap po [facility] 75 mg 1-04 TID prn ity of capsule 00:00: low back [place] 00 pain. May Medical take extra Branch capsule once per day. pregabalin 2023-0 Yes [id number] 1 cap po [facility] 75 mg 1-04 TID prn ity of capsule 00:00: low back [place] 00 pain. May Medical take extra Branch capsule once per day. pregabalin 2023-0 Yes [id number] 1 cap po [facility] 75 mg 1-04 TID prn ity of capsule 00:00: low back [place] 00 pain. May Medical take extra Branch capsule once per day. pregabalin 2023-0 Yes [id number] 1 cap po [facility] 75 mg 1-04 TID prn ity of capsule 00:00: low back [place] 00 pain. May Medical take extra Branch capsule once per day. pregabalin 3-0 Yes [id number] 1 cap po [facility] 75 mg 1-04 TID prn ity of capsule 00:00: low back [place] 00 pain. May Medical take extra Branch capsule once per day. pregabalin 2023-0 Yes [id number] 1 cap po [facility] 75 mg 1-04 TID prn ity of capsule 00:00: low back [place] 00 pain. May Medical take extra Branch capsule once per day. pregabalin 2023-0 Yes [id number] 1 cap po [facility] 75 mg 1-04 TID prn ity of capsule 00:00: low back [place] 00 pain. May Medical take extra Branch capsule once per day. pregabalin 2023-0 Yes [id number] 1 cap po [facility] 75 mg 1-04 TID prn ity of capsule 00:00: low back [place] 00 pain. May Medical take extra Branch capsule once per day. pregabalin 2023-0 Yes [id number] 1 cap po [facility] 75 mg 1-04 TID prn ity of capsule 00:00: low back [place] 00 pain. May Medical take extra Branch capsule once per day. pregabalin 2023-0 Yes [id number] 1 cap po [facility] 75 mg 1-04 TID prn ity of capsule 00:00: low back [place] 00 pain. May Medical take extra Branch capsule once per day. pregabalin 2023-0 Yes [id number] 1 cap po [facility] 75 mg 1-04 TID prn ity of capsule 00:00: low back [place] 00 pain. May Medical take extra Branch capsule once per day. pregabalin 2023-0 Yes [id number] 1 cap po [facility] 75 mg 1-04 TID prn ity of capsule 00:00: low back [place] 00 pain. May Medical take extra Branch capsule once per day. pregabalin 2023-0 Yes [id number] 1 cap po [facility] 75 mg 1-04 TID prn ity of capsule 00:00: low back [place] 00 pain. May Medical take extra Branch capsule once per day. pregabalin 2023-0 Yes [id number] 1 cap po [facility] 75 mg 1-04 TID prn ity of capsule 00:00: low back [place] 00 pain. May Medical take extra Branch capsule once per day. pregabalin 2023-0 Yes [id number] 1 cap po [facility] 75 mg 1-04 TID prn ity of capsule 00:00: low back [place] 00 pain. May Medical take extra Branch capsule once per day. pregabalin 2023-0 Yes [id number] 1 cap po [facility] 75 mg 1-04 TID prn ity of capsule 00:00: low back [place] 00 pain. May Medical take extra Branch capsule once per day. pregabalin 2023-0 Yes [id number] 1 cap po [facility] 75 mg 1-04 TID prn ity of capsule 00:00: low back [place] 00 pain. May Medical take extra Branch capsule once per day. pregabalin 2023-0 Yes [id number] 1 cap po [facility] 75 mg 1-04 TID prn ity of capsule 00:00: low back [place] 00 pain. May Medical take extra Branch capsule once per day. pregabalin 2023-0 Yes [id number] 1 cap po [facility] 75 mg 1-04 TID prn ity of capsule 00:00: low back [place] 00 pain. May Medical take extra Branch capsule once per day. pregabalin 2023-0 Yes [id number] 1 cap po [facility] 75 mg 1-04 TID prn ity of capsule 00:00: low back [place] 00 pain. May Medical take extra Branch capsule once per day. pregabalin 2023-0 Yes [id number] 1 cap po [facility] 75 mg 1-04 TID prn ity of capsule 00:00: low back [place] 00 pain. May Medical take extra Branch capsule once per day. pregabalin 2023-0 Yes [id number] 1 cap po [facility] 75 mg 1-04 TID prn ity of capsule 00:00: low back [place] 00 pain. May Medical take extra Branch capsule once per day. pregabalin 2023-0 Yes [id number] 1 cap po [facility] 75 mg 1-04 TID prn ity of capsule 00:00: low back [place] 00 pain. May Medical take extra Branch capsule once per day. pregabalin 2023-0 Yes [id number] 1 cap po [facility] 75 mg 1-04 TID prn ity of capsule 00:00: low back [place] 00 pain. May Medical take extra Branch capsule once per day. pregabalin 2023-0 Yes [id number] 1 cap po [facility] 75 mg 1-04 TID prn ity of capsule 00:00: low back [place] 00 pain. May Medical take extra Branch capsule once per day. pregabalin 2023-0 Yes [id number] 1 cap po [facility] 75 mg 1-04 TID prn ity of capsule 00:00: low back [place] 00 pain. May Medical take extra Branch capsule once per day. pregabalin 2023-0 Yes [id number] 1 cap po [facility] 75 mg 1-04 TID prn ity of capsule 00:00: low back [place] 00 pain. May Medical take extra Branch capsule once per day. pregabalin 2023-0 Yes [id number] 1 cap po [facility] 75 mg 1-04 TID prn ity of capsule 00:00: low back [place] 00 pain. May Medical take extra Branch capsule once per day. pregabalin 2023-0 Yes [id number] 1 cap po [facility] 75 mg 1-04 TID prn ity of capsule 00:00: low back [place] 00 pain. May Medical take extra Branch capsule once per day. pregabalin 2023-0 Yes [id number] 1 cap po [facility] 75 mg 1-04 TID prn ity of capsule 00:00: low back [place] 00 pain. May Medical take extra Branch capsule once per day. pregabalin 2023-0 Yes [id number] 1 cap po [facility] 75 mg 1-04 TID prn ity of capsule 00:00: low back [place] 00 pain. May Medical take extra Branch capsule once per day. pregabalin 2023-0 Yes [id number] 1 cap po [facility] 75 mg 1-04 TID prn ity of capsule 00:00: low back [place] 00 pain. May Medical take extra Branch capsule once per day. pregabalin 2023-0 Yes [id number] 1 cap po [facility] 75 mg 1-04 TID prn ity of capsule 00:00: low back [place] 00 pain. May Medical take extra Branch capsule once per day. pregabalin 2023-0 Yes [id number] 1 cap po [facility] 75 mg 1-04 TID prn ity of capsule 00:00: low back [place] 00 pain. May Medical take extra Branch capsule once per day. pregabalin 2023-0 Yes [id number] 1 cap po [facility] 75 mg 1-04 TID prn ity of capsule 00:00: low back [place] 00 pain. May Medical take extra Branch capsule once per day. pregabalin 2023-0 Yes [id number] 1 cap po [facility] 75 mg 1-04 TID prn ity of capsule 00:00: low back [place] 00 pain. May Medical take extra Branch capsule once per day. pregabalin 2023-0 Yes [id number] 1 cap po [facility] 75 mg 1-04 TID prn ity of capsule 00:00: low back [place] 00 pain. May Medical take extra Branch capsule once per day. pregabalin 2023-0 Yes [id number] 1 cap po [facility] 75 mg 1-04 TID prn ity of capsule 00:00: low back [place] 00 pain. May Medical take extra Branch capsule once per day. pregabalin 2023-0 Yes [id number] 1 cap po [facility] 75 mg 1-04 TID prn ity of capsule 00:00: low back [place] 00 pain. May Medical take extra Branch capsule once per day. pantoprazol 2021-06- No 40mg Take 40 mg [facility] e 40 mg EC 08-06 by mouth ity of tablet 00:00: 00:00 in the [place] 00 :00 morning Medical and 40 mg Branch in the evening. pantoprazol 2021-06- No 40mg Take 40 mg [facility] e 40 mg EC 08-06 by mouth ity of tablet 00:00: 00:00 in the [place] 00 :00 morning Medical and 40 mg Branch in the evening. pantoprazol 2021-06- No 40mg Take 40 mg [facility] e 40 mg EC 2-24 07-21 by mouth ity of tablet 00:00: 00:00 in the [place] 00 :00 morning Medical and 40 mg Branch in the evening. methocarbam 2021-06 Yes [id number] 750mg Take 1 [facility] oL 750 mg 2-15 tablet by ity o f tablet 00:00: mouth 4 [place] (four) Medical times Branch daily as needed (muscle spasm, low back pain). For low back pain, muscle spasm. Alternate with cyclobenza manasa pregabalin 2021-06 Yes [id number] 1-2 cap po [facility] 75 mg 2-15 TID prn ity of capsule 00:00: low back [place] pain Medical Branch lidocaine 2021-06 Yes [id number] 3{patch Apply 3 [facility] HCL 4 % 2-15 } Patches to ity of PtMd 00:00: area(s) as [place] [address] needed Medical (pain). Branch Apply up to 3 patches to painful areas daily as needed. 12 hours on 12 hours off. cyclobenzap 2021-06 Yes [id number] 1/2 to 1 [facility] rine 10 mg 2-15 tab po TID ity of tablet 00:00: prn muscle 00 spasms, Medical low back Branch pain. Alternate with methocarba mol methocarbam 2021-06 Yes [id number] 750mg Take 1 [facility] oL 750 mg 2-15 tablet by ity o f tablet 00:00: mouth 4 [place] [address] (four) Medical times Branch daily as needed (muscle spasm, low back pain). For low back pain, muscle spasm. Alternate with cyclobenza manasa pregabalin 2021-06 Yes [id number] 1-2 cap po [facility] 75 mg 2-15 TID prn ity of capsule 00:00: low back pain Medical Branch lidocaine 2021-06 Yes [id number] 3{patch Apply 3 [facility] HCL 4 % 2-15 } Patches to ity of PtMd 00:00: area(s) as [place] needed Medical (pain). Branch Apply up to 3 patches to painful areas daily as needed. 12 hours on 12 hours off. cyclobenzap 2021-06 Yes [id number] 1/2 to 1 [facility] rine 10 mg 2-15 tab po TID ity of tablet 00:00: prn muscle [place] 00 spasms, Medical low back Branch pain. Alternate with methocarba mol methocarbam 2021-06 Yes [id number] 750mg Take 1 [facility] oL 750 mg 2-15 tablet by ity o f tablet 00:00: mouth 4 [place] 00 (four) Medical times Branch daily as needed (muscle spasm, low back pain). For low back pain, muscle spasm. Alternate with cyclobenza manasa pregabalin 2021-06 Yes [id number] 1-2 cap po [facility] 75 mg 2-15 TID prn ity of capsule 00:00: low back [place] 00 pain Medical Branch lidocaine 2021-06 Yes [id number] 3{patch Apply 3 [facility] HCL 4 % 2-15 } Patches to ity of PtMd 00:00: area(s) as [place] 00 needed Medical (pain). Branch Apply up to 3 patches to painful areas daily as needed. 12 hours on 12 hours off. cyclobenzap 2021-06 Yes [id number] /2 to 1 [facility] rine 10 mg 2-15 tab po TID ity of tablet 00:00: prn muscle [place] 00 spasms, Medical low back Branch pain. Alternate with methocarba mol methocarbam 2021-06 Yes [id number] 750mg Take 1 [facility] oL 750 mg 2-15 tablet by ity o f tablet 00:00: mouth 4 [place] 00 (four) Medical times Branch daily as needed (muscle spasm, low back pain). For low back pain, muscle spasm. Alternate with cyclobenza manasa pregabalin 2021-06 Yes [id number] 1-2 cap po [facility] 75 mg 2-15 TID prn ity of capsule 00:00: low back [place] 00 pain Medical Branch lidocaine 2021-06 Yes [id number] 3{patch Apply 3 [facility] HCL 4 % 2-15 } Patches to ity of PtMd 00:00: area(s) as [place] 00 needed Medical (pain). Branch Apply up to 3 patches to painful areas daily as needed. 12 hours on 12 hours off. cyclobenzap 2021-06 Yes [id number] 1/2 to 1 [facility] rine 10 mg 2-15 tab po TID ity of tablet 00:00: prn muscle [place] 00 spasms, Medical low back Branch pain. Alternate with methocarba mol methocarbam 2021-06 Yes [id number] 750mg Take 1 [facility] oL 750 mg 2-15 tablet by ity o f tablet 00:00: mouth 4 00 (four) Medical times Branch daily as needed (muscle spasm, low back pain). For low back pain, muscle spasm. Alternate with cyclobenza manasa pregabalin 2021-06 Yes [id number] 1-2 cap po [facility] 75 mg 2-15 TID prn ity of capsule 00:00: low back [place] pain Medical Branch lidocaine 2021-06 Yes [id number] 3{patch Apply 3 [facility] HCL 4 % 2-15 } Patches to ity of PtMd 00:00: area(s) as [place] 00 needed Medical (pain). Branch Apply up to 3 patches to painful areas daily as needed. 12 hours on 12 hours off. cyclobenzap 2021-06 Yes [id number] 1/2 to 1 [facility] rine 10 mg 2-15 tab po TID ity of tablet 00:00: prn muscle [place] 00 spasms, Medical low back Branch pain. Alternate with methocarba mol methocarbam 2021-06 Yes [id number] 750mg Take 1 [facility] oL 750 mg 2-15 tablet by ity o f tablet 00:00: mouth 4 (four) Medical times Branch daily as needed (muscle spasm, low back pain). For low back pain, muscle spasm. Alternate with cyclobenza manasa pregabalin 2021-06 Yes [id number] 1-2 cap po [facility] 75 mg 2-15 TID prn ity of capsule 00:00: low back [place] pain Medical Branch lidocaine 2021-06 Yes [id number] 3{patch Apply 3 [facility] HCL 4 % 2-15 } Patches to ity of PtMd 00:00: area(s) as [place] 00 needed Medical (pain). Branch Apply up to 3 patches to painful areas daily as needed. 12 hours on 12 hours off. cyclobenzap 2021-06 Yes [id number] 1/2 to 1 [facility] rine 10 mg 2-15 tab po TID ity of tablet 00:00: prn muscle [place] 00 spasms, Medical low back Branch pain. Alternate with methocarba mol methocarbam 2021-06 Yes [id number] 750mg Take 1 [facility] oL 750 mg 2-15 tablet by ity o f tablet 00:00: mouth 4 (four) Medical times Branch daily as needed (muscle spasm, low back pain). For low back pain, muscle spasm. Alternate with cyclobenza manasa lidocaine 2021-06 Yes [id number] 3{patch Apply 3 [facility] HCL 4 % 2-15 } Patches to ity of PtMd 00:00: area(s) as [place] 00 needed Medical (pain). Branch Apply up to 3 patches to painful areas daily as needed. 12 hours on 12 hours off. cyclobenzap 2021-06 Yes [id number] 1/2 to 1 [facility] rine 10 mg 2-15 tab po TID ity of tablet 00:00: prn muscle [place] 00 spasms, Medical low back Branch pain. Alternate with methocarba mol methocarbam 2021-06 Yes [id number] 750mg Take 1 [facility] oL 750 mg 2-15 tablet by ity o f tablet 00:00: mouth 4 (four) Medical times Branch daily as needed (muscle spasm, low back pain). For low back pain, muscle spasm. Alternate with cyclobenza manasa lidocaine 2021-06 Yes [id number] 3{patch Apply 3 [facility] HCL 4 % 2-15 } Patches to ity of PtMd 00:00: area(s) as [place] 00 needed Medical (pain). Branch Apply up to 3 patches to painful areas daily as needed. 12 hours on 12 hours off. cyclobenzap 2021-06 Yes [id number] 1/2 to 1 [facility] rine 10 mg 2-15 tab po TID ity of tablet 00:00: prn muscle [place] 00 spasms, Medical low back Branch pain. Alternate with methocarba mol methocarbam 2021-06 Yes [id number] 750mg Take 1 [facility] oL 750 mg 2-15 tablet by ity o f tablet 00:00: mouth 4 (four) Medical times Branch daily as needed (muscle spasm, low back pain). For low back pain, muscle spasm. Alternate with cyclobenza manasa lidocaine 2021-06 Yes [id number] 3{patch Apply 3 [facility] HCL 4 % 2-15 } Patches to ity of PtMd 00:00: area(s) as [place] 00 needed Medical (pain). Branch Apply up to 3 patches to painful areas daily as needed. 12 hours on 12 hours off. cyclobenzap 2021-06 Yes [id number] 1/2 to 1 [facility] rine 10 mg 2-15 tab po TID ity of tablet 00:00: prn muscle [place] 00 spasms, Medical low back Branch pain. Alternate with methocarba mol methocarbam 2021-06 Yes [id number] 750mg Take 1 [facility] oL 750 mg 2-15 tablet by ity o f tablet 00:00: mouth 4 [place] 00 (four) Medical times Branch daily as needed (muscle spasm, low back pain). For low back pain, muscle spasm. Alternate with cyclobenza manasa lidocaine 2021-06 Yes [id number] 3{patch Apply 3 [facility] HCL 4 % 2-15 } Patches to ity of PtMd 00:00: area(s) as [place] 00 needed Medical (pain). Branch Apply up to 3 patches to painful areas daily as needed. 12 hours on 12 hours off. cyclobenzap 2021-06 Yes [id number] /2 to 1 [facility] rine 10 mg 2-15 tab po TID ity of tablet 00:00: prn muscle [place] 00 spasms, Medical low back Branch pain. Alternate with methocarba mol methocarbam 2021-06 Yes [id number] 750mg Take 1 [facility] oL 750 mg 2-15 tablet by ity o f tablet 00:00: mouth 4 [place] 00 (four) Medical times Branch daily as needed (muscle spasm, low back pain). For low back pain, muscle spasm. Alternate with cyclobenza manasa lidocaine 2021-06 Yes [id number] 3{patch Apply 3 [facility] HCL 4 % 2-15 } Patches to ity of PtMd 00:00: area(s) as [place] 00 needed Medical (pain). Branch Apply up to 3 patches to painful areas daily as needed. 12 hours on 12 hours off. cyclobenzap 2021-06 Yes [id number] 1/2 to 1 [facility] rine 10 mg 2-15 tab po TID ity of tablet 00:00: prn muscle [place] 00 spasms, Medical low back Branch pain. Alternate with methocarba mol methocarbam 2021-06 Yes [id number] 750mg Take 1 [facility] oL 750 mg 2-15 tablet by ity o f tablet 00:00: mouth 4 [place] 00 (four) Medical times Branch daily as needed (muscle spasm, low back pain). For low back pain, muscle spasm. Alternate with cyclobenza manasa lidocaine 2021-06 Yes [id number] 3{patch Apply 3 [facility] HCL 4 % 2-15 } Patches to ity of PtMd 00:00: area(s) as [place] 00 needed Medical (pain). Branch Apply up to 3 patches to painful areas daily as needed. 12 hours on 12 hours off. cyclobenzap 2021-06 Yes [id number] /2 to 1 [facility] rine 10 mg 2-15 tab po TID ity of tablet 00:00: prn muscle [place] 00 spasms, Medical low back Branch pain. Alternate with methocarba mol methocarbam 2021-06 Yes [id number] 750mg Take 1 [facility] oL 750 mg 2-15 tablet by ity o f tablet 00:00: mouth 4 00 (four) Medical times Branch daily as needed (muscle spasm, low back pain). For low back pain, muscle spasm. Alternate with cyclobenza manasa lidocaine 2021-06 Yes [id number] 3{patch Apply 3 [facility] HCL 4 % 2-15 } Patches to ity of PtMd 00:00: area(s) as [place] 00 needed Medical (pain). Branch Apply up to 3 patches to painful areas daily as needed. 12 hours on 12 hours off. cyclobenzap 2021-06 Yes [id number] /2 to 1 [facility] rine 10 mg 2-15 tab po TID ity of tablet 00:00: prn muscle [place] 00 spasms, Medical low back Branch pain. Alternate with methocarba mol methocarbam 2021-06 Yes [id number] 750mg Take 1 [facility] oL 750 mg 2-15 tablet by ity o f tablet 00:00: mouth 4 00 (four) Medical times Branch daily as needed (muscle spasm, low back pain). For low back pain, muscle spasm. Alternate with cyclobenza manasa lidocaine 2021-06 Yes [id number] 3{patch Apply 3 [facility] HCL 4 % 2-15 } Patches to ity of PtMd 00:00: area(s) as [place] 00 needed Medical (pain). Branch Apply up to 3 patches to painful areas daily as needed. 12 hours on 12 hours off. cyclobenzap 2021-06 Yes [id number] 1/2 to 1 [facility] rine 10 mg 2-15 tab po TID ity of tablet 00:00: prn muscle [place] 00 spasms, Medical low back Branch pain. Alternate with methocarba mol methocarbam 2021-06 Yes [id number] 750mg Take 1 [facility] oL 750 mg 2-15 tablet by ity o f tablet 00:00: mouth 4 (four) Medical times Branch daily as needed (muscle spasm, low back pain). For low back pain, muscle spasm. Alternate with cyclobenza manasa lidocaine 2021-06 Yes [id number] 3{patch Apply 3 [facility] HCL 4 % 2-15 } Patches to ity of PtMd 00:00: area(s) as [place] 00 needed Medical (pain). Branch Apply up to 3 patches to painful areas daily as needed. 12 hours on 12 hours off. cyclobenzap 2021-06 Yes [id number] 1/2 to 1 [facility] rine 10 mg 2-15 tab po TID ity of tablet 00:00: prn muscle [place] 00 spasms, Medical low back Branch pain. Alternate with methocarba mol methocarbam 2021-06 Yes [id number] 750mg Take 1 [facility] oL 750 mg 2-15 tablet by ity o f tablet 00:00: mouth 4 (four) Medical times Branch daily as needed (muscle spasm, low back pain). For low back pain, muscle spasm. Alternate with cyclobenza manasa lidocaine 2021-06 Yes [id number] 3{patch Apply 3 [facility] HCL 4 % 2-15 } Patches to ity of PtMd 00:00: area(s) as [place] 00 needed Medical (pain). Branch Apply up to 3 patches to painful areas daily as needed. 12 hours on 12 hours off. cyclobenzap 2021-06 Yes [id number] 1/2 to 1 [facility] rine 10 mg 2-15 tab po TID ity of tablet 00:00: prn muscle [place] 00 spasms, Medical low back Branch pain. Alternate with methocarba mol methocarbam 2021-06 Yes [id number] 750mg Take 1 [facility] oL 750 mg 2-15 tablet by ity o f tablet 00:00: mouth 4 (four) Medical times Branch daily as needed (muscle spasm, low back pain). For low back pain, muscle spasm. Alternate with cyclobenza manasa lidocaine 2021-06 Yes [id number] 3{patch Apply 3 [facility] HCL 4 % 2-15 } Patches to ity of [facility] 00:00: area(s) as [place] 00 needed Medical (pain). Branch Apply up to 3 patches to painful areas daily as needed. 12 hours on 12 hours off. cyclobenzap 2021-06 Yes [id number] 1/2 to 1 [facility] rine 10 mg 2-15 tab po TID ity of tablet 00:00: prn muscle [place] 00 spasms, Medical low back Branch pain. Alternate with methocarba mol methocarbam 2021-06 Yes [id number] 750mg Take 1 [facility] oL 750 mg 2-15 tablet by ity o f tablet 00:00: mouth 4 [place] 00 (four) Medical times Branch daily as needed (muscle spasm, low back pain). For low back pain, muscle spasm. Alternate with cyclobenza manasa lidocaine 2021-06 Yes [id number] 3{patch Apply 3 [facility] HCL 4 % 2-15 } Patches to ity of [facility] 00:00: area(s) as [place] 00 needed Medical (pain). Branch Apply up to 3 patches to painful areas daily as needed. 12 hours on 12 hours off. cyclobenzap 2021-06 Yes [id number] /2 to 1 [facility] rine 10 mg 2-15 tab po TID ity of tablet 00:00: prn muscle [place] 00 spasms, Medical low back Branch pain. Alternate with methocarba mol methocarbam 2021-06 Yes [id number] 750mg Take 1 [facility] oL 750 mg 2-15 tablet by ity o f tablet 00:00: mouth 4 [place] 00 (four) Medical times Branch daily as needed (muscle spasm, low back pain). For low back pain, muscle spasm. Alternate with cyclobenza manasa lidocaine 2021-06 Yes [id number] 3{patch Apply 3 [facility] HCL 4 % 2-15 } Patches to ity of [facility] 00:00: area(s) as [place] 00 needed Medical (pain). Branch Apply up to 3 patches to painful areas daily as needed. 12 hours on 12 hours off. cyclobenzap 2021-06 Yes [id number] 1/2 to 1 [facility] rine 10 mg 2-15 tab po TID ity of tablet 00:00: prn muscle [place] 00 spasms, Medical low back Branch pain. Alternate with methocarba mol methocarbam 2021-06 Yes [id number] 750mg Take 1 [facility] oL 750 mg 2-15 tablet by ity o f tablet 00:00: mouth 4 [place] 00 (four) Medical times Branch daily as needed (muscle spasm, low back pain). For low back pain, muscle spasm. Alternate with cyclobenza manasa lidocaine 2021-06 Yes [id number] 3{patch Apply 3 [facility] HCL 4 % 2-15 } Patches to ity of [facility] 00:00: area(s) as [place] 00 needed Medical (pain). Branch Apply up to 3 patches to painful areas daily as needed. 12 hours on 12 hours off. cyclobenzap 2021-06 Yes [id number] 1/2 to 1 [facility] rine 10 mg 2-15 tab po TID ity of tablet 00:00: prn muscle [place] 00 spasms, Medical low back Branch pain. Alternate with methocarba mol methocarbam 2021-06 Yes [id number] 750mg Take 1 [facility] oL 750 mg 2-15 tablet by ity o f tablet 00:00: mouth 4 00 (four) Medical times Branch daily as needed (muscle spasm, low back pain). For low back pain, muscle spasm. Alternate with cyclobenza manasa lidocaine 2021-06 Yes [id number] 3{patch Apply 3 [facility] HCL 4 % 2-15 } Patches to ity of [facility] 00:00: area(s) as [place] 00 needed Medical (pain). Branch Apply up to 3 patches to painful areas daily as needed. 12 hours on 12 hours off. cyclobenzap 2021-06 Yes [id number] /2 to 1 [facility] rine 10 mg 2-15 tab po TID ity of tablet 00:00: prn muscle [place] 00 spasms, Medical low back Branch pain. Alternate with methocarba mol methocarbam 2021-06 Yes [id number] 750mg Take 1 [facility] oL 750 mg 2-15 tablet by ity o f tablet 00:00: mouth 4 [place] 00 (four) Medical times Branch daily as needed (muscle spasm, low back pain). For low back pain, muscle spasm. Alternate with cyclobenza manasa lidocaine 2021-06 Yes [id number] 3{patch Apply 3 [facility] HCL 4 % 2-15 } Patches to ity of [facility] 00:00: area(s) as [place] 00 needed Medical (pain). Branch Apply up to 3 patches to painful areas daily as needed. 12 hours on 12 hours off. cyclobenzap 2021-06 Yes [id number] 1/2 to 1 [facility] rine 10 mg 2-15 tab po TID ity of tablet 00:00: prn muscle [place] 00 spasms, Medical low back Branch pain. Alternate with methocarba mol methocarbam 2021-06 Yes [id number] 750mg Take 1 [facility] oL 750 mg 2-15 tablet by ity o f tablet 00:00: mouth 4 [place] 00 (four) Medical times Branch daily as needed (muscle spasm, low back pain). For low back pain, muscle spasm. Alternate with cyclobenza manasa lidocaine 2021-06 Yes [id number] 3{patch Apply 3 [facility] HCL 4 % 2-15 } Patches to ity of [facility] 00:00: area(s) as [place] 00 needed Medical (pain). Branch Apply up to 3 patches to painful areas daily as needed. 12 hours on 12 hours off. cyclobenzap 2021-06 Yes [id number] /2 to 1 [facility] rine 10 mg 2-15 tab po TID ity of tablet 00:00: prn muscle [place] 00 spasms, Medical low back Branch pain. Alternate with methocarba mol methocarbam 2021-06 Yes [id number] 750mg Take 1 [facility] oL 750 mg 2-15 tablet by ity o f tablet 00:00: mouth 4 [place] 00 (four) Medical times Branch daily as needed (muscle spasm, low back pain). For low back pain, muscle spasm. Alternate with cyclobenza manasa lidocaine 2021-06 Yes [id number] 3{patch Apply 3 [facility] HCL 4 % 2-15 } Patches to ity of [facility] 00:00: area(s) as [place] 00 needed Medical (pain). Branch Apply up to 3 patches to painful areas daily as needed. 12 hours on 12 hours off. cyclobenzap 2021-06 Yes [id number] 1/2 to 1 [facility] rine 10 mg 2-15 tab po TID ity of tablet 00:00: prn muscle [place] 00 spasms, Medical low back Branch pain. Alternate with methocarba mol methocarbam 2021-06 Yes [id number] 750mg Take 1 [facility] oL 750 mg 2-15 tablet by ity o f tablet 00:00: mouth 4 [place] (four) Medical times Branch daily as needed (muscle spasm, low back pain). For low back pain, muscle spasm. Alternate with cyclobenza manasa lidocaine 2021-06 Yes [id number] 3{patch Apply 3 [facility] HCL 4 % 2-15 } Patches to ity of [facility] 00:00: area(s) as [place] 00 needed Medical (pain). Branch Apply up to 3 patches to painful areas daily as needed. 12 hours on 12 hours off. cyclobenzap 2021-06 Yes [id number] 1/2 to 1 [facility] rine 10 mg 2-15 tab po TID ity of tablet 00:00: prn muscle [place] 00 spasms, Medical low back Branch pain. Alternate with methocarba mol methocarbam 2021-06 Yes [id number] 750mg Take 1 [facility] oL 750 mg 2-15 tablet by ity o f tablet 00:00: mouth 4 (four) Medical times Branch daily as needed (muscle spasm, low back pain). For low back pain, muscle spasm. Alternate with cyclobenza manasa lidocaine 2021-06 Yes [id number] 3{patch Apply 3 [facility] HCL 4 % 2-15 } Patches to ity of [facility] 00:00: area(s) as [place] 00 needed Medical (pain). Branch Apply up to 3 patches to painful areas daily as needed. 12 hours on 12 hours off. cyclobenzap 2021-06 Yes [id number] 1/2 to 1 [facility] r[facility] 10 mg 2-15 tab po TID ity of tablet 00:00: prn muscle [place] 00 spasms, Medical low back Branch pain. Alternate with methocarba mol methocarbam 2021-06 Yes [id number] 750mg Take 1 [facility] oL 750 mg 2-15 tablet by ity o f tablet 00:00: mouth 4 (four) Medical times Branch daily as needed (muscle spasm, low back pain). For low back pain, muscle spasm. Alternate with cyclobenza manasa lidocaine 2021-06 Yes [id number] 3{patch Apply 3 [facility] HCL 4 % 2-15 } Patches to ity of [facility] 00:00: area(s) as [place] 00 needed Medical (pain). Branch Apply up to 3 patches to painful areas daily as needed. 12 hours on 12 hours off. cyclobenzap 2021-06 Yes [id number] /2 to 1 [facility] r[facility] 10 mg 2-15 tab po TID ity of tablet 00:00: prn muscle [place] 00 spasms, Medical low back Branch pain. Alternate with methocarba mol methocarbam 2021-06 Yes [id number] 750mg Take 1 [facility] oL 750 mg 2-15 tablet by ity o f tablet 00:00: mouth 4 [place] 00 (four) Medical times Branch daily as needed (muscle spasm, low back pain). For low back pain, muscle spasm. Alternate with cyclobenza manasa lidocaine 2021-06 Yes [id number] 3{patch Apply 3 [facility] HCL 4 % 2-15 } Patches to ity of [facility] 00:00: area(s) as [place] 00 needed Medical (pain). Branch Apply up to 3 patches to painful areas daily as needed. 12 hours on 12 hours off. cyclobenzap 2021-06 Yes [id number] 2 to 1 [facility] rine 10 mg 2-15 tab po TID ity of tablet 00:00: prn muscle [place] 00 spasms, Medical low back Branch pain. Alternate with methocarba mol methocarbam 2021-06 Yes [id number] 750mg Take 1 [facility] oL 750 mg 2-15 tablet by ity o f tablet 00:00: mouth 4 [place] 00 (four) Medical times Branch daily as needed (muscle spasm, low back pain). For low back pain, muscle spasm. Alternate with cyclobenza manasa lidocaine 2021-06 Yes [id number] 3{patch Apply 3 [facility] HCL 4 % 2-15 } Patches to ity of [facility] 00:00: area(s) as [place] 00 needed Medical (pain). Branch Apply up to 3 patches to painful areas daily as needed. 12 hours on 12 hours off. cyclobenzap 2021-06 Yes [id number] 1/2 to 1 [facility] r[facility] 10 mg 2-15 tab po TID ity of tablet 00:00: prn muscle [place] 00 spasms, Medical low back Branch pain. Alternate with methocarba mol methocarbam 2021-06 Yes [id number] 750mg Take 1 [facility] oL 750 mg 2-15 tablet by ity o f tablet 00:00: mouth 4 [place] 00 (four) Medical times Branch daily as needed (muscle spasm, low back pain). For low back pain, muscle spasm. Alternate with cyclobenza manasa lidocaine 2021-06 Yes [id number] 3{patch Apply 3 [facility] HCL 4 % 2-15 } Patches to ity of [facility] 00:00: area(s) as [place] 00 needed Medical (pain). Branch Apply up to 3 patches to painful areas daily as needed. 12 hours on 12 hours off. cyclobenzap 2021-06 Yes [id number] 1/2 to 1 [facility] r[facility] 10 mg 2-15 tab po TID ity of tablet 00:00: prn muscle [place] 00 spasms, Medical low back Branch pain. Alternate with methocarba mol methocarbam 2021-06 Yes [id number] 750mg Take 1 [facility] oL 750 mg 2-15 tablet by ity o f tablet 00:00: mouth 4 (four) Medical times Branch daily as needed (muscle spasm, low back pain). For low back pain, muscle spasm. Alternate with cyclobenza manasa lidocaine 2021-06 Yes [id number] 3{patch Apply 3 [facility] HCL 4 % 2-15 } Patches to ity of [facility] 00:00: area(s) as [place] 00 needed Medical (pain). Branch Apply up to 3 patches to painful areas daily as needed. 12 hours on 12 hours off. cyclobenzap 2021-06 Yes [id number] 1/2 to 1 [facility] rine 10 mg 2-15 tab po TID ity of tablet 00:00: prn muscle [place] 00 spasms, Medical low back Branch pain. Alternate with methocarba mol methocarbam 2021-06 Yes [id number] 750mg Take 1 [facility] oL 750 mg 2-15 tablet by ity o f tablet 00:00: mouth 4 00 (four) Medical times Branch daily as needed (muscle spasm, low back pain). For low back pain, muscle spasm. Alternate with cyclobenza manasa lidocaine 2021-06 Yes [id number] 3{patch Apply 3 [facility] HCL 4 % 2-15 } Patches to ity of [facility] 00:00: area(s) as [place] 00 needed Medical (pain). Branch Apply up to 3 patches to painful areas daily as needed. 12 hours on 12 hours off. cyclobenzap 2021-06 Yes [id number] 1/2 to 1 [facility] rine 10 mg 2-15 tab po TID ity of tablet 00:00: prn muscle [place] 00 spasms, Medical low back Branch pain. Alternate with methocarba mol methocarbam 2021-06 Yes [id number] 750mg Take 1 [facility] oL 750 mg 2-15 tablet by ity o f tablet 00:00: mouth 4 [place] (four) Medical times Branch daily as needed (muscle spasm, low back pain). For low back pain, muscle spasm. Alternate with cyclobenza manasa lidocaine 2021-06 Yes [id number] 3{patch Apply 3 [facility] HCL 4 % 2-15 } Patches to ity of [facility] 00:00: area(s) as [place] 00 needed Medical (pain). Branch Apply up to 3 patches to painful areas daily as needed. 12 hours on 12 hours off. cyclobenzap 2021-06 Yes [id number] /2 to 1 [facility] rine 10 mg 2-15 tab po TID ity of tablet 00:00: prn muscle [place] 00 spasms, Medical low back Branch pain. Alternate with methocarba mol methocarbam 2021-06 Yes [id number] 750mg Take 1 [facility] oL 750 mg 2-15 tablet by ity o f tablet 00:00: mouth 4 (four) Medical times Branch daily as needed (muscle spasm, low back pain). For low back pain, muscle spasm. Alternate with cyclobenza manasa lidocaine 2021-06 Yes [id number] 3{patch Apply 3 [facility] HCL 4 % 2-15 } Patches to ity of [facility] 00:00: area(s) as [place] 00 needed Medical (pain). Branch Apply up to 3 patches to painful areas daily as needed. 12 hours on 12 hours off. cyclobenzap 2021-06 Yes [id number] /2 to 1 [facility] rine 10 mg 2-15 tab po TID ity of tablet 00:00: prn muscle [place] 00 spasms, Medical low back Branch pain. Alternate with methocarba mol methocarbam 2021-06 Yes [id number] 750mg Take 1 [facility] oL 750 mg 2-15 tablet by ity o f tablet 00:00: mouth 4 [place] 00 (four) Medical times Branch daily as needed (muscle spasm, low back pain). For low back pain, muscle spasm. Alternate with cyclobenza manasa lidocaine 2021-06 Yes [id number] 3{patch Apply 3 [facility] HCL 4 % 2-15 } Patches to ity of [facility] 00:00: area(s) as [place] 00 needed Medical (pain). Branch Apply up to 3 patches to painful areas daily as needed. 12 hours on 12 hours off. cyclobenzap 2021-06 Yes [id number] /2 to 1 [facility] rine 10 mg 2-15 tab po TID ity of tablet 00:00: prn muscle [place] 00 spasms, Medical low back Branch pain. Alternate with methocarba mol methocarbam 2021-06 Yes [id number] 750mg Take 1 [facility] oL 750 mg 2-15 tablet by ity o f tablet 00:00: mouth 4 [place] 00 (four) Medical times Branch daily as needed (muscle spasm, low back pain). For low back pain, muscle spasm. Alternate with cyclobenza manasa lidocaine 2021-06 Yes [id number] 3{patch Apply 3 [facility] HCL 4 % 2-15 } Patches to ity of [facility] 00:00: area(s) as [place] 00 needed Medical (pain). Branch Apply up to 3 patches to painful areas daily as needed. 12 hours on 12 hours off. cyclobenzap 2021-06 Yes [id number] /2 to 1 [facility] rine 10 mg 2-15 tab po TID ity of tablet 00:00: prn muscle [place] 00 spasms, Medical low back Branch pain. Alternate with methocarba mol methocarbam 2021-06 Yes [id number] 750mg Take 1 [facility] oL 750 mg 2-15 tablet by ity o f tablet 00:00: mouth 4 [place] 00 (four) Medical times Branch daily as needed (muscle spasm, low back pain). For low back pain, muscle spasm. Alternate with cyclobenza manasa lidocaine 2021-06 Yes [id number] 3{patch Apply 3 [facility] HCL 4 % 2-15 } Patches to ity of [facility] 00:00: area(s) as [place] 00 needed Medical (pain). Branch Apply up to 3 patches to painful areas daily as needed. 12 hours on 12 hours off. cyclobenzap 2021-06 Yes [id number] /2 to 1 [facility] rine 10 mg 2-15 tab po TID ity of tablet 00:00: prn muscle [place] 00 spasms, Medical low back Branch pain. Alternate with methocarba mol methocarbam 2021-06 Yes [id number] 750mg Take 1 [facility] oL 750 mg 2-15 tablet by ity o f tablet 00:00: mouth 4 [place] 00 (four) Medical times Branch daily as needed (muscle spasm, low back pain). For low back pain, muscle spasm. Alternate with cyclobenza manasa lidocaine 2021-06 Yes [id number] 3{patch Apply 3 [facility] HCL 4 % 2-15 } Patches to ity of [facility] 00:00: area(s) as [place] 00 needed Medical (pain). Branch Apply up to 3 patches to painful areas daily as needed. 12 hours on 12 hours off. cyclobenzap 2021-06 Yes [id number] /2 to 1 [facility] rine 10 mg 2-15 tab po TID ity of tablet 00:00: prn muscle [place] 00 spasms, Medical low back Branch pain. Alternate with methocarba mol methocarbam 2021-06 Yes [id number] 750mg Take 1 [facility] oL 750 mg 2-15 tablet by ity o f tablet 00:00: mouth 4 (four) Medical times Branch daily as needed (muscle spasm, low back pain). For low back pain, muscle spasm. Alternate with cyclobenza manasa lidocaine 2021-06 Yes [id number] 3{patch Apply 3 [facility] HCL 4 % 2-15 } Patches to ity of [facility] 00:00: area(s) as [place] 00 needed Medical (pain). Branch Apply up to 3 patches to painful areas daily as needed. 12 hours on 12 hours off. cyclobenzap 2021-06 Yes [id number] /2 to 1 [facility] rine 10 mg 2-15 tab po TID ity of tablet 00:00: prn muscle [place] 00 spasms, Medical low back Branch pain. Alternate with methocarba mol methocarbam 2021-06 Yes [id number] 750mg Take 1 [facility] oL 750 mg 2-15 tablet by ity o f tablet 00:00: mouth 4 00 (four) Medical times Branch daily as needed (muscle spasm, low back pain). For low back pain, muscle spasm. Alternate with cyclobenza manasa lidocaine 2021-06 Yes [id number] 3{patch Apply 3 [facility] HCL 4 % 2-15 } Patches to ity of [facility] 00:00: area(s) as [place] 00 needed Medical (pain). Branch Apply up to 3 patches to painful areas daily as needed. 12 hours on 12 hours off. cyclobenzap 2021-06 Yes [id number] 1/2 to 1 [facility] rine 10 mg 2-15 tab po TID ity of tablet 00:00: prn muscle [place] 00 spasms, Medical low back Branch pain. Alternate with methocarba mol methocarbam 2021-06 Yes [id number] 750mg Take 1 [facility] oL 750 mg 2-15 tablet by ity o f tablet 00:00: mouth 4 [place] 00 (four) Medical times Branch daily as needed (muscle spasm, low back pain). For low back pain, muscle spasm. Alternate with cyclobenza manasa lidocaine 2021-06 Yes [id number] 3{patch Apply 3 [facility] HCL 4 % 2-15 } Patches to ity of [facility] 00:00: area(s) as [place] 00 needed Medical (pain). Branch Apply up to 3 patches to painful areas daily as needed. 12 hours on 12 hours off. cyclobenzap 2021-06 Yes [id number] 1/2 to 1 [facility] r[facility] 10 mg 2-15 tab po TID ity of tablet 00:00: prn muscle [place] 00 spasms, Medical low back Branch pain. Alternate with methocarba mol methocarbam 2021-06 Yes [id number] 750mg Take 1 [facility] oL 750 mg 2-15 tablet by ity o f tablet 00:00: mouth 4 [place] 00 (four) Medical times Branch daily as needed (muscle spasm, low back pain). For low back pain, muscle spasm. Alternate with cyclobenza manasa lidocaine 2021-06 Yes [id number] 3{patch Apply 3 [facility] HCL 4 % 2-15 } Patches to ity of [facility] 00:00: area(s) as [place] 00 needed Medical (pain). Branch Apply up to 3 patches to painful areas daily as needed. 12 hours on 12 hours off. cyclobenzap 2021-06 Yes [id number] 1/2 to 1 [facility] r[facility] 10 mg 2-15 tab po TID ity of tablet 00:00: prn muscle [place] 00 spasms, Medical low back Branch pain. Alternate with methocarba mol methocarbam 2021-06 Yes [id number] 750mg Take 1 [facility] oL 750 mg 2-15 tablet by ity o f tablet 00:00: mouth 4 [place] 00 (four) Medical times Branch daily as needed (muscle spasm, low back pain). For low back pain, muscle spasm. Alternate with cyclobenza manasa lidocaine 2021-06 Yes [id number] 3{patch Apply 3 [facility] HCL 4 % 2-15 } Patches to ity of [facility] 00:00: area(s) as [place] 00 needed Medical (pain). Branch Apply up to 3 patches to painful areas daily as needed. 12 hours on 12 hours off. cyclobenzap 2021-06 Yes [id number] 1/2 to 1 [facility] rine 10 mg 2-15 tab po TID ity of tablet 00:00: prn muscle [place] 00 spasms, Medical low back Branch pain. Alternate with methocarba mol methocarbam 2021-06 Yes [id number] 750mg Take 1 [facility] oL 750 mg 2-15 tablet by ity o f tablet 00:00: mouth 4 (four) Medical times Branch daily as needed (muscle spasm, low back pain). For low back pain, muscle spasm. Alternate with cyclobenza manasa lidocaine 2021-06 Yes [id number] 3{patch Apply 3 [facility] HCL 4 % 2-15 } Patches to ity of [facility] 00:00: area(s) as [place] 00 needed Medical (pain). Branch Apply up to 3 patches to painful areas daily as needed. 12 hours on 12 hours off. cyclobenzap 2021-06 Yes [id number] 1/2 to 1 [facility] rine 10 mg 2-15 tab po TID ity of tablet 00:00: prn muscle [place] 00 spasms, Medical low back Branch pain. Alternate with methocarba mol methocarbam 2021-06 Yes [id number] 750mg Take 1 [facility] oL 750 mg 2-15 tablet by ity o f tablet 00:00: mouth 4 [place] 00 (four) Medical times Branch daily as needed (muscle spasm, low back pain). For low back pain, muscle spasm. Alternate with cyclobenza manasa lidocaine 2021-06 Yes [id number] 3{patch Apply 3 [facility] HCL 4 % 2-15 } Patches to ity of [facility] 00:00: area(s) as [place] 00 needed Medical (pain). Branch Apply up to 3 patches to painful areas daily as needed. 12 hours on 12 hours off. cyclobenzap 2021-06 Yes [id number] 1/2 to 1 [facility] r[facility] 10 mg 2-15 tab po TID ity of tablet 00:00: prn muscle [place] 00 spasms, Medical low back Branch pain. Alternate with methocarba mol methocarbam 2021-06 Yes [id number] 750mg Take 1 [facility] oL 750 mg 2-15 tablet by ity o f tablet 00:00: mouth 4 [place] 00 (four) Medical times Branch daily as needed (muscle spasm, low back pain). For low back pain, muscle spasm. Alternate with cyclobenza manasa lidocaine 2021-06 Yes [id number] 3{patch Apply 3 [facility] HCL 4 % 2-15 } Patches to ity of [facility] 00:00: area(s) as [place] 00 needed Medical (pain). Branch Apply up to 3 patches to painful areas daily as needed. 12 hours on 12 hours off. cyclobenzap 2021-06 Yes [id number] /2 to 1 [facility] r[facility] 10 mg 2-15 tab po TID ity of tablet 00:00: prn muscle [place] 00 spasms, Medical low back Branch pain. Alternate with methocarba mol methocarbam 2021-06 Yes [id number] 750mg Take 1 [facility] oL 750 mg 2-15 tablet by ity o f tablet 00:00: mouth 4 [place] 00 (four) Medical times Branch daily as needed (muscle spasm, low back pain). For low back pain, muscle spasm. Alternate with cyclobenza manasa lidocaine 2021-06 Yes [id number] 3{patch Apply 3 [facility] HCL 4 % 2-15 } Patches to ity of [facility] 00:00: area(s) as [place] 00 needed Medical (pain). Branch Apply up to 3 patches to painful areas daily as needed. 12 hours on 12 hours off. cyclobenzap 2021-06 Yes [id number] 1/2 to 1 [facility] rine 10 mg 2-15 tab po TID ity of tablet 00:00: prn muscle [place] 00 spasms, Medical low back Branch pain. Alternate with methocarba mol methocarbam 2021-06 Yes [id number] 750mg Take 1 [facility] oL 750 mg 2-15 tablet by ity o f tablet 00:00: mouth 4 (four) Medical times Branch daily as needed (muscle spasm, low back pain). For low back pain, muscle spasm. Alternate with cyclobenza manasa lidocaine 2021-06 Yes [id number] 3{patch Apply 3 [facility] HCL 4 % 2-15 } Patches to ity of [facility] 00:00: area(s) as [place] 00 needed Medical (pain). Branch Apply up to 3 patches to painful areas daily as needed. 12 hours on 12 hours off. cyclobenzap 2021-06 Yes [id number] 1/2 to 1 [facility] rine 10 mg 2-15 tab po TID ity of tablet 00:00: prn muscle [place] 00 spasms, Medical low back Branch pain. Alternate with methocarba mol methocarbam 2021-06 Yes [id number] 750mg Take 1 [facility] oL 750 mg 2-15 tablet by ity o f tablet 00:00: mouth 4 (four) Medical times Branch daily as needed (muscle spasm, low back pain). For low back pain, muscle spasm. Alternate with cyclobenza manasa lidocaine 2021-06 Yes [id number] 3{patch Apply 3 [facility] HCL 4 % 2-15 } Patches to ity of [facility] 00:00: area(s) as [place] 00 needed Medical (pain). Branch Apply up to 3 patches to painful areas daily as needed. 12 hours on 12 hours off. cyclobenzap 2021-06 Yes [id number] 1/2 to 1 [facility] r[facility] 10 mg 2-15 tab po TID ity of tablet 00:00: prn muscle [place] 00 spasms, Medical low back Branch pain. Alternate with methocarba mol methocarbam 2021-06 Yes [id number] 750mg Take 1 [facility] oL 750 mg 2-15 tablet by ity o f tablet 00:00: mouth 4 (four) Medical times Branch daily as needed (muscle spasm, low back pain). For low back pain, muscle spasm. Alternate with cyclobenza manasa lidocaine 2021-06 Yes [id number] 3{patch Apply 3 [facility] HCL 4 % 2-15 } Patches to ity of [facility] 00:00: area(s) as [place] 00 needed Medical (pain). Branch Apply up to 3 patches to painful areas daily as needed. 12 hours on 12 hours off. cyclobenzap 2021-06 Yes [id number] 1/2 to 1 [facility] r[facility] 10 mg 2-15 tab po TID ity of tablet 00:00: prn muscle [place] 00 spasms, Medical low back Branch pain. Alternate with methocarba mol methocarbam 2021-06 Yes [id number] 750mg Take 1 [facility] oL 750 mg 2-15 tablet by ity o f tablet 00:00: mouth 4 [place] 00 (four) Medical times Branch daily as needed (muscle spasm, low back pain). For low back pain, muscle spasm. Alternate with cyclobenza manasa lidocaine 2021-06 Yes [id number] 3{patch Apply 3 [facility] HCL 4 % 2-15 } Patches to ity of [facility] 00:00: area(s) as [place] 00 needed Medical (pain). Branch Apply up to 3 patches to painful areas daily as needed. 12 hours on 12 hours off. cyclobenzap 2021-06 Yes [id number] /2 to 1 [facility] r[facility] 10 mg 2-15 tab po TID ity of tablet 00:00: prn muscle [place] 00 spasms, Medical low back Branch pain. Alternate with methocarba mol methocarbam 2021-06 Yes [id number] 750mg Take 1 [facility] oL 750 mg 2-15 tablet by ity o f tablet 00:00: mouth 4 [place] 00 (four) Medical times Branch daily as needed (muscle spasm, low back pain). For low back pain, muscle spasm. Alternate with cyclobenza manasa lidocaine 2021-06 Yes [id number] 3{patch Apply 3 [facility] HCL 4 % 2-15 } Patches to ity of [facility] 00:00: area(s) as [place] 00 needed Medical (pain). Branch Apply up to 3 patches to painful areas daily as needed. 12 hours on 12 hours off. cyclobenzap 2021-06 Yes [id number] 1/2 to 1 [facility] r[facility] 10 mg 2-15 tab po TID ity of tablet 00:00: prn muscle [place] 00 spasms, Medical low back Branch pain. Alternate with methocarba mol methocarbam 2021-06 Yes [id number] 750mg Take 1 [facility] oL 750 mg 2-15 tablet by ity o f tablet 00:00: mouth 4 [place] (four) Medical times Branch daily as needed (muscle spasm, low back pain). For low back pain, muscle spasm. Alternate with cyclobenza manasa lidocaine 2021-06 Yes [id number] 3{patch Apply 3 [facility] HCL 4 % 2-15 } Patches to ity of PtMd 00:00: area(s) as [place] 00 needed Medical (pain). Branch Apply up to 3 patches to painful areas daily as needed. 12 hours on 12 hours off. cyclobenzap 2021-06 Yes [id number] 1/2 to 1 [facility] rine 10 mg 2-15 tab po TID ity of tablet 00:00: prn muscle [place] 00 spasms, Medical low back Branch pain. Alternate with methocarba mol methocarbam 2021-06 Yes [id number] 750mg Take 1 [facility] oL 750 mg 2-15 tablet by ity o f tablet 00:00: mouth 4 00 (four) Medical times Branch daily as needed (muscle spasm, low back pain). For low back pain, muscle spasm. Alternate with cyclobenza manasa lidocaine 2021-06 Yes [id number] 3{patch Apply 3 [facility] HCL 4 % 2-15 } Patches to ity of PtMd 00:00: area(s) as [place] 00 needed Medical (pain). Branch Apply up to 3 patches to painful areas daily as needed. 12 hours on 12 hours off. cyclobenzap 2021-06 Yes [id number] 1/2 to 1 [facility] rine 10 mg 2-15 tab po TID ity of tablet 00:00: prn muscle [place] 00 spasms, Medical low back Branch pain. Alternate with methocarba mol methocarbam 2021-06 Yes [id number] 750mg Take 1 [facility] oL 750 mg 2-15 tablet by ity o f tablet 00:00: mouth 4 00 (four) Medical times Branch daily as needed (muscle spasm, low back pain). For low back pain, muscle spasm. Alternate with cyclobenza manasa lidocaine 2021-06 Yes [id number] 3{patch Apply 3 [facility] HCL 4 % 2-15 } Patches to ity of PtMd 00:00: area(s) as [place] 00 needed Medical (pain). Branch Apply up to 3 patches to painful areas daily as needed. 12 hours on 12 hours off. cyclobenzap 2021-06 Yes [id number] /2 to 1 [facility] rine 10 mg 2-15 tab po TID ity of tablet 00:00: prn muscle [place] 00 spasms, Medical low back Branch pain. Alternate with methocarba mol methocarbam 2021-06 Yes [id number] 750mg Take 1 [facility] oL 750 mg 2-15 tablet by ity o f tablet 00:00: mouth 4 (four) Medical times Branch daily as needed (muscle spasm, low back pain). For low back pain, muscle spasm. Alternate with cyclobenza manasa lidocaine 2021-06 Yes [id number] 3{patch Apply 3 [facility] HCL 4 % 2-15 } Patches to ity of PtMd 00:00: area(s) as [place] 00 needed Medical (pain). Branch Apply up to 3 patches to painful areas daily as needed. 12 hours on 12 hours off. cyclobenzap 2021-06 Yes [id number] /2 to 1 [facility] rine 10 mg 2-15 tab po TID ity of tablet 00:00: prn muscle [place] 00 spasms, Medical low back Branch pain. Alternate with methocarba mol methocarbam 2021-06 Yes [id number] 750mg Take 1 [facility] oL 750 mg 2-15 tablet by ity o f tablet 00:00: mouth 4 (four) Medical times Branch daily as needed (muscle spasm, low back pain). For low back pain, muscle spasm. Alternate with cyclobenza manasa lidocaine 2021-06 Yes [id number] 3{patch Apply 3 [facility] HCL 4 % 2-15 } Patches to ity of PtMd 00:00: area(s) as [place] 00 needed Medical (pain). Branch Apply up to 3 patches to painful areas daily as needed. 12 hours on 12 hours off. cyclobenzap 2021-06 Yes [id number] /2 to 1 [facility] rine 10 mg 2-15 tab po TID ity of tablet 00:00: prn muscle [place] 00 spasms, Medical low back Branch pain. Alternate with methocarba mol methocarbam 2021-06 Yes [id number] 750mg Take 1 [facility] oL 750 mg 2-15 tablet by ity o f tablet 00:00: mouth 4 (four) Medical times Branch daily as needed (muscle spasm, low back pain). For low back pain, muscle spasm. Alternate with cyclobenza manasa lidocaine 2021-06 Yes [id number] 3{patch Apply 3 [facility] HCL 4 % 2-15 } Patches to ity of PtMd 00:00: area(s) as [place] 00 needed Medical (pain). Branch Apply up to 3 patches to painful areas daily as needed. 12 hours on 12 hours off. cyclobenzap 2021-06 Yes [id number] 1/2 to 1 [facility] rine 10 mg 2-15 tab po TID ity of tablet 00:00: prn muscle [place] 00 spasms, Medical low back Branch pain. Alternate with methocarba mol methocarbam 2021-06 Yes [id number] 750mg Take 1 [facility] oL 750 mg 2-15 tablet by ity o f tablet 00:00: mouth 4 [place] 00 (four) Medical times Branch daily as needed (muscle spasm, low back pain). For low back pain, muscle spasm. Alternate with cyclobenza manasa lidocaine 2021-06 Yes [id number] 3{patch Apply 3 [facility] HCL 4 % 2-15 } Patches to ity of PtMd 00:00: area(s) as [place] 00 needed Medical (pain). Branch Apply up to 3 patches to painful areas daily as needed. 12 hours on 12 hours off. cyclobenzap 2021-06 Yes [id number] /2 to 1 [facility] rine 10 mg 2-15 tab po TID ity of tablet 00:00: prn muscle [place] 00 spasms, Medical low back Branch pain. Alternate with methocarba mol methocarbam 2021-06 Yes [id number] 750mg Take 1 [facility] oL 750 mg 2-15 tablet by ity o f tablet 00:00: mouth 4 [place] 00 (four) Medical times Branch daily as needed (muscle spasm, low back pain). For low back pain, muscle spasm. Alternate with cyclobenza manasa lidocaine 2021-06 Yes [id number] 3{patch Apply 3 [facility] HCL 4 % 2-15 } Patches to ity of PtMd 00:00: area(s) as [place] 00 needed Medical (pain). Branch Apply up to 3 patches to painful areas daily as needed. 12 hours on 12 hours off. cyclobenzap 2021-06 Yes [id number] 1/2 to 1 [facility] rine 10 mg 2-15 tab po TID ity of tablet 00:00: prn muscle [place] 00 spasms, Medical low back Branch pain. Alternate with methocarba mol methocarbam 2021-06 Yes [id number] 750mg Take 1 [facility] oL 750 mg 2-15 tablet by ity o f tablet 00:00: mouth 4 [place] 00 (four) Medical times Branch daily as needed (muscle spasm, low back pain). For low back pain, muscle spasm. Alternate with cyclobenza manasa lidocaine 2021-06 Yes [id number] 3{patch Apply 3 [facility] HCL 4 % 2-15 } Patches to ity of PtMd 00:00: area(s) as [place] 00 needed Medical (pain). Branch Apply up to 3 patches to painful areas daily as needed. 12 hours on 12 hours off. cyclobenzap 2021-06 Yes [id number] 1/2 to 1 [facility] rine 10 mg 2-15 tab po TID ity of tablet 00:00: prn muscle [place] 00 spasms, Medical low back Branch pain. Alternate with methocarba mol methocarbam 2021-06 Yes [id number] 750mg Take 1 [facility] oL 750 mg 2-15 tablet by ity o f tablet 00:00: mouth 4 00 (four) Medical times Branch daily as needed (muscle spasm, low back pain). For low back pain, muscle spasm. Alternate with cyclobenza manasa lidocaine 2021-06 Yes [id number] 3{patch Apply 3 [facility] HCL 4 % 2-15 } Patches to ity of PtMd 00:00: area(s) as [place] 00 needed Medical (pain). Branch Apply up to 3 patches to painful areas daily as needed. 12 hours on 12 hours off. cyclobenzap 2021-06 Yes [id number] 1/2 to 1 [facility] rine 10 mg 2-15 tab po TID ity of tablet 00:00: prn muscle [place] 00 spasms, Medical low back Branch pain. Alternate with methocarba mol methocarbam 2021-06 Yes [id number] 750mg Take 1 [facility] oL 750 mg 2-15 tablet by ity o f tablet 00:00: mouth 4 00 (four) Medical times Branch daily as needed (muscle spasm, low back pain). For low back pain, muscle spasm. Alternate with cyclobenza manasa lidocaine 2021-06 Yes [id number] 3{patch Apply 3 [facility] HCL 4 % 2-15 } Patches to ity of PtMd 00:00: area(s) as [place] 00 needed Medical (pain). Branch Apply up to 3 patches to painful areas daily as needed. 12 hours on 12 hours off. cyclobenzap 2021-06 Yes [id number] 1/2 to 1 [facility] rine 10 mg 2-15 tab po TID ity of tablet 00:00: prn muscle [place] 00 spasms, Medical low back Branch pain. Alternate with methocarba mol pregabalin 2021-06- No [id number] 1-2 cap po [facility] 75 mg 2-15 01-04 TID prn ity of capsule 00:00: 00:00 low back [place] 00 :00 pain Medical Branch pregabalin 2021-06- No [id number] 1-2 cap po [facility] 75 mg 2-15 -04 TID prn ity of capsule 00:00: 00:00 low back [place] 00 :00 pain Medical Branch lidocaine 2021-06 Yes [id number] 3{patch Apply 3 [facility] HCL 4 % 2-13 } Patches to ity of PtMd 00:00: area(s) as [place] 00 needed Medical (pain). Branch Apply up to 3 patches to painful areas daily as needed. 12 hours on 12 hours off. lidocaine 2021-06- No [id number] 3{patch Apply 3 [facility] HCL 4 % 2-13 12-15 } Patches to ity o f PtMd 00:00: 00:00 area(s) as [place] 00 :00 needed Medical (pain). Branch Apply up to 3 patches to painful areas daily as needed. 12 hours on 12 hours off. lidocaine 2021-06- No [id number] 3{patch Apply 3 [facility] HCL 4 % 2-13 12-15 } Patches to ity o f PtMd 00:00: 00:00 area(s) as [place] 00 :00 needed Medical (pain). Branch Apply up to 3 patches to painful areas daily as needed. 12 hours on 12 hours off. iopamidol 2021-06- No [id number] 74mL 74 mL, U nivers (ISOVUE 2-06 12-06 Intravenou ity o f 370-500 mL) 20:30: 19:31 s, ONCE, 1 [place] injection 00 :00 dose, On Medica l 74 mL Tue Branch 05/18/22 at 1430, Routine methylPREDN 2021-06- No [id number] Take by [facility] 07-19 mouth ity of (MEDROL, 00:00[place] 05:[place] 4 mg 00 :00 CTIONS for Med ical tablets 5 days. Branch follow package directions methylPREDN 2021-06- No [id number] Take by [facility] 07-19 mouth ity of (MEDROL, 00:00: 05:[place] 4 mg 00 :00 CTIONS for Med ical tablets 5 days. Branch follow package directions proMETHazin 2021-06 No 12.5mg 12.5 mg, Univers e 06-15 IV ity of (PHENERGAN) 21:00: 20:56 [place], [place] 12.5 mg in 00 :00 ONCE, 1 [...] Josselyn Branch 04/15/22 at 1530, STAT iopamidol 2021-06- No [id number] 65mL 65 mL, U nivers (ISOVUE 06-15 Intravenou ity o f 370-500 mL) 20:15: 20:05 s, ONCE, 1 [place] injection 00 :00 dose, On Medica l 65 mL J[place] Branch 04/15/22 at 1515, Routine maalox:diph 2021-06- No 15mL 15 mL, Uni vers enhydrAMINE 06-15 Oral, ity of :lidocaine 19:30: 19:25 ONCE, 1 [place] 2 % viscous 00 :00 dose, On Medi diane 1:1:1 [place] Branch ([facility] 04/15/22 at [facility]) 1430, oral Routine suspension 15 mL aspirin 2021-06- No 325mg 325 mg, Unive rs tablet 325 06-15 Oral, ity of mg 19:15: 19:25 ONCE, 1 [place] 00 :00 dose, On Medical Josselyn Branch 04/15/22 at 1415, STAT ondansetron 2021-06 Yes [id number] 4mg Take 1 [facility] 4 mg 1-03 tablet by ity of disintegrat 00:00: mouth [place] ing tablet 00 every 8 Medica l (eight) Branch hours as needed for Nausea and Vomiting (N/V) for up to 10 doses. ondansetron 2021-06 Yes [id number] 4mg Take 1 [facility] 4 mg 1-03 tablet by ity of disintegrat 00:00: mouth [place] ing tablet 00 every 8 Medica l (eight) Branch hours as needed for Nausea and Vomiting (N/V) for up to 10 doses. ondansetron 2021-06 Yes [id number] 4mg Take 1 [facility] 4 mg 1-03 tablet by ity of disintegrat 00:00: mouth [place] ing tablet 00 every 8 Medica l (eight) Branch hours as needed for Nausea and Vomiting (N/V) for up to 10 doses. ondansetron 2021-06 Yes [id number] 4mg Take 1 [facility] 4 mg 1-03 tablet by ity of disintegrat 00:00: mouth [place] ing tablet 00 every 8 Medica l (eight) Branch hours as needed for Nausea and Vomiting (N/V) for up to 10 doses. ondansetron 2021-06 Yes [id number] 4mg Take 1 [facility] 4 mg 1-03 tablet by ity of disintegrat 00:00: mouth [place] ing tablet 00 every 8 Medica l (eight) Branch hours as needed for Nausea and Vomiting (N/V) for up to 10 doses. ondansetron 2021-06 Yes [id number] 4mg Take 1 [facility] 4 mg 1-03 tablet by ity of disintegrat 00:00: mouth [place] ing tablet 00 every 8 Medica l (eight) Branch hours as needed for Nausea and Vomiting (N/V) for up to 10 doses. ondansetron 2021-06 Yes [id number] 4mg Take 1 [facility] 4 mg 1-03 tablet by ity of disintegrat 00:00: mouth [place] ing tablet 00 every 8 Medica l (eight) Branch hours as needed for Nausea and Vomiting (N/V) for up to 10 doses. ondansetron 2021-06 Yes [id number] 4mg Take 1 [facility] 4 mg 1-03 tablet by ity of disintegrat 00:00: mouth [place] ing tablet 00 every 8 Medica l (eight) Branch hours as needed for Nausea and Vomiting (N/V) for up to 10 doses. ondansetron 2021-06 Yes [id number] 4mg Take 1 [facility] 4 mg 1-03 tablet by ity of disintegrat 00:00: mouth [place] ing tablet 00 every 8 Medica l (eight) Branch hours as needed for Nausea and Vomiting (N/V) for up to 10 doses. ondansetron 2021-06 Yes [id number] 4mg Take 1 [facility] 4 mg 1-03 tablet by ity of disintegrat 00:00: mouth [place] ing tablet 00 every 8 Medica l (eight) Branch hours as needed for Nausea and Vomiting (N/V) for up to 10 doses. ondansetron 2021-06 Yes [id number] 4mg Take 1 [facility] 4 mg 1-03 tablet by ity of disintegrat 00:00: mouth [place] ing tablet 00 every 8 Medica l (eight) Branch hours as needed for Nausea and Vomiting (N/V) for up to 10 doses. ondansetron 2021-06 Yes [id number] 4mg Take 1 [facility] 4 mg 1-03 tablet by ity of disintegrat 00:00: mouth [place] ing tablet 00 every 8 Medica l (eight) Branch hours as needed for Nausea and Vomiting (N/V) for up to 10 doses. ondansetron 2021-06 Yes [id number] 4mg Take 1 [facility] 4 mg 1-03 tablet by ity of disintegrat 00:00: mouth [place] ing tablet 00 every 8 Medica l (eight) Branch hours as needed for Nausea and Vomiting (N/V) for up to 10 doses. ondansetron 2021-06 Yes [id number] 4mg Take 1 [facility] 4 mg 1-03 tablet by ity of disintegrat 00:00: mouth [place] ing tablet 00 every 8 Medica l (eight) Branch hours as needed for Nausea and Vomiting (N/V) for up to 10 doses. ondansetron 2021-06 Yes [id number] 4mg Take 1 [facility] 4 mg 1-03 tablet by ity of disintegrat 00:00: mouth [place] ing tablet 00 every 8 Medica l (eight) Branch hours as needed for Nausea and Vomiting (N/V) for up to 10 doses. ondansetron 2021-06 Yes [id number] 4mg Take 1 [facility] 4 mg 1-03 tablet by ity of disintegrat 00:00: mouth [place] ing tablet 00 every 8 Medica l (eight) Branch hours as needed for Nausea and Vomiting (N/V) for up to 10 doses. ondansetron 2021-06 Yes [id number] 4mg Take 1 [facility] 4 mg 1-03 tablet by ity of disintegrat 00:00: mouth [place] ing tablet 00 every 8 Medica l (eight) Branch hours as needed for Nausea and Vomiting (N/V) for up to 10 doses. ondansetron 2021-06 Yes [id number] 4mg Take 1 [facility] 4 mg 1-03 tablet by ity of disintegrat 00:00: mouth [place] ing tablet 00 every 8 Medica l (eight) Branch hours as needed for Nausea and Vomiting (N/V) for up to 10 doses. ondansetron 2021-06 Yes [id number] 4mg Take 1 [facility] 4 mg 1-03 tablet by ity of disintegrat 00:00: mouth [place] ing tablet 00 every 8 Medica l (eight) Branch hours as needed for Nausea and Vomiting (N/V) for up to 10 doses. ondansetron 2021-06 Yes [id number] 4mg Take 1 [facility] 4 mg 1-03 tablet by ity of disintegrat 00:00: mouth [place] ing tablet 00 every 8 Medica l (eight) Branch hours as needed for Nausea and Vomiting (N/V) for up to 10 doses. ondansetron 2021-063- No [id number] 4mg Take 1 [facility] 4 mg 1-03 02-08 tablet by ity of disintegrat 00:00: 00:00 [place] 00 :00 every 8 Medica l (eight) Branch hours as needed for Nausea and Vomiting (N/V) for up to 10 doses. ondansetron 2021-06- No [id number] 4mg Take 1 [facility] 4 mg 1-03 02-08 tablet by ity of disintegrat 00:00: 00:00 [place] 00 :00 every 8 Medica l (eight) Branch hours as needed for Nausea and Vomiting (N/V) for up to 10 doses. ondansetron 2021-06- No [id number] 4mg Take 1 [facility] 4 mg 1-03 02-08 tablet by ity of disintegrat 00:00: 00:[place] 00 :00 every 8 Medica l (eight) Branch hours as needed for Nausea and Vomiting (N/V) for up to 10 doses. meloxicam 0 Yes [id number] 7.5mg Take 1 [facility] 7.5 mg 9-30 tablet by ity of tablet 00:00: mouth in [place] the Medical morning. Branch meloxicam 0 Yes [id number] 7.5mg Take 1 [facility] 7.5 mg 9-30 tablet by ity of tablet 00:00: mouth in [place] the Medical morning. Branch meloxicam 0 Yes [id number] 7.5mg Take 1 [facility] 7.5 mg 9-30 tablet by ity of tablet 00:00: mouth in [place] the Medical morning. Branch meloxicam 2021-0 Yes [id number] 7.5mg Take 1 [facility] 7.5 mg 9-30 tablet by ity of tablet 00:00: mouth in [place] the Medical morning. Branch meloxicam 2021-0 Yes [id number] 7.5mg Take 1 [facility] 7.5 mg 9-30 tablet by ity of tablet 00:00: mouth in [place] the Medical morning. Branch meloxicam 2021-0 Yes [id number] 7.5mg Take 1 [facility] 7.5 mg 9-30 tablet by ity of tablet 00:00: mouth in [place] the Medical morning. Branch meloxicam 2021-0 Yes [id number] 7.5mg Take 1 [facility] 7.5 mg 9-30 tablet by ity of tablet 00:00: mouth in [place] the Medical morning. Branch meloxicam 2-0 Yes [id number] 7.5mg Take 1 [facility] 7.5 mg 9-30 tablet by ity of tablet 00:00: mouth in [place] the Medical morning. Branch meloxicam 2-0 Yes [id number] 7.5mg Take 1 [facility] 7.5 mg 9-30 tablet by ity of tablet 00:00: mouth in [place] the Medical morning. Branch meloxicam 2-0 Yes [id number] 7.5mg Take 1 [facility] 7.5 mg 9-30 tablet by ity of tablet 00:00: mouth in [place] the Medical morning. Branch meloxicam 2-0 Yes [id number] 7.5mg Take 1 [facility] 7.5 mg 9-30 tablet by ity of tablet 00:00: mouth in [place] the Medical morning. Branch meloxicam 2-0 Yes [id number] 7.5mg Take 1 [facility] 7.5 mg 9-30 tablet by ity of tablet 00:00: mouth in [place] the Medical morning. Branch meloxicam 2-0 Yes [id number] 7.5mg Take 1 [facility] 7.5 mg 9-30 tablet by ity of tablet 00:00: mouth in [place] the Medical morning. Branch meloxicam 2-0 Yes [id number] 7.5mg Take 1 [facility] 7.5 mg 9-30 tablet by ity of tablet 00:00: mouth in [place] the Medical morning. Branch meloxicam 2-0 Yes [id number] 7.5mg Take 1 [facility] 7.5 mg 9-30 tablet by ity of tablet 00:00: mouth in [place] the Medical morning. Branch meloxicam 2-0 Yes [id number] 7.5mg Take 1 [facility] 7.5 mg 9-30 tablet by ity of tablet 00:00: mouth in [place] the Medical morning. Branch meloxicam 2-0 Yes [id number] 7.5mg Take 1 [facility] 7.5 mg 9-30 tablet by ity of tablet 00:00: mouth in [place] the Medical morning. Branch meloxicam 2-0 Yes [id number] 7.5mg Take 1 [facility] 7.5 mg 9-30 tablet by ity of tablet 00:00: mouth in [place] 00 the Medical morning. Branch meloxicam 2-0 Yes [id number] 7.5mg Take 1 [facility] 7.5 mg 9-30 tablet by ity of tablet 00:00: mouth in [place] the Medical morning. Branch meloxicam 2-0 Yes [id number] 7.5mg Take 1 [facility] 7.5 mg 9-30 tablet by ity of tablet 00:00: mouth in [place] 00 the Medical morning. Branch meloxicam 2-0 Yes [id number] 7.5mg Take 1 [facility] 7.5 mg 9-30 tablet by ity of tablet 00:00: mouth in [place] 00 the Medical morning. Branch meloxicam 2-0 Yes [id number] 7.5mg Take 1 [facility] 7.5 mg 9-30 tablet by ity of tablet 00:00: mouth in [place] the Medical morning. Branch meloxicam 2021-0 Yes [id number] 7.5mg Take 1 [facility] 7.5 mg 9-30 tablet by ity of tablet 00:00: mouth in [place] the Medical morning. Branch meloxicam 2021-0 Yes [id number] 7.5mg Take 1 [facility] 7.5 mg 9-30 tablet by ity of tablet 00:00: mouth in [place] the Medical morning. Branch meloxicam 2-0 Yes [id number] 7.5mg Take 1 [facility] 7.5 mg 9-30 tablet by ity of tablet 00:00: mouth in [place] the Medical morning. Branch meloxicam 2-0 Yes [id number] 7.5mg Take 1 [facility] 7.5 mg 9-30 tablet by ity of tablet 00:00: mouth in [place] 00 the Medical morning. Branch meloxicam 2-0 Yes [id number] 7.5mg Take 1 [facility] 7.5 mg 9-30 tablet by ity of tablet 00:00: mouth in [place] 00 the Medical morning. Branch meloxicam 2-0 Yes [id number] 7.5mg Take 1 [facility] 7.5 mg 9-30 tablet by ity of tablet 00:00: mouth in [place] 00 the Medical morning. Branch meloxicam 2-0 Yes [id number] 7.5mg Take 1 [facility] 7.5 mg 9-30 tablet by ity of tablet 00:00: mouth in [place] 00 the Medical morning. Branch meloxicam 2021-0 Yes [id number] 7.5mg Take 1 [facility] 7.5 mg 9-30 tablet by ity of tablet 00:00: mouth in [place] the Medical morning. Branch meloxicam 2021-0 Yes [id number] 7.5mg Take 1 [facility] 7.5 mg 9-30 tablet by ity of tablet 00:00: mouth in [place] the Medical morning. Branch meloxicam 2021-0 Yes [id number] 7.5mg Take 1 [facility] 7.5 mg 9-30 tablet by ity of tablet 00:00: mouth in [place] the Medical morning. Branch meloxicam 2021-0 Yes [id number] 7.5mg Take 1 [facility] 7.5 mg 9-30 tablet by ity of tablet 00:00: mouth in [place] the Medical morning. Branch meloxicam 2021-0 Yes [id number] 7.5mg Take 1 [facility] 7.5 mg 9-30 tablet by ity of tablet 00:00: mouth in [place] the Medical morning. Branch meloxicam 2021-0 Yes [id number] 7.5mg Take 1 [facility] 7.5 mg 9-30 tablet by ity of tablet 00:00: mouth in [place] the Medical morning. Branch meloxicam 2021-0 Yes [id number] 7.5mg Take 1 [facility] 7.5 mg 9-30 tablet by ity of tablet 00:00: mouth in [place] the Medical morning. Branch meloxicam 2021-0 Yes [id number] 7.5mg Take 1 [facility] 7.5 mg 9-30 tablet by ity of tablet 00:00: mouth in [place] the Medical morning. Branch meloxicam 2021-0 Yes [id number] 7.5mg Take 1 [facility] 7.5 mg 9-30 tablet by ity of tablet 00:00: mouth in [place] the Medical morning. Branch meloxicam 2021-0 Yes [id number] 7.5mg Take 1 [facility] 7.5 mg 9-30 tablet by ity of tablet 00:00: mouth in [place] 00 the Medical morning. Branch ibuprofen 2021-0 Yes [id number] 600mg Take 1 [facility] 600 mg 9-11 tablet by ity of tablet 00:00: mouth [place] 00 every 6 Medical (six) Branch hours as needed for Pain (scale 4-6) for up to 30 doses. ibuprofen 2022-0 Yes [id number] 600mg Take 1 [facility] 600 mg 9-11 tablet by ity of tablet 00:00: mouth [place] 00 every 6 Medical (six) Branch hours as needed for Pain (scale 4-6) for up to 30 doses. ibuprofen 2022-0 Yes [id number] 600mg Take 1 [facility] 600 mg 9-11 tablet by ity of tablet 00:00: mouth [place] 00 every 6 Medical (six) Branch hours as needed for Pain (scale 4-6) for up to 30 doses. ibuprofen 2022-0 Yes [id number] 600mg Take 1 [facility] 600 mg 9-11 tablet by ity of tablet 00:00: mouth [place] 00 every 6 Medical (six) Branch hours as needed for Pain (scale 4-6) for up to 30 doses. ibuprofen 2022-0 Yes [id number] 600mg Take 1 [facility] 600 mg 9-11 tablet by ity of tablet 00:00: mouth [place] 00 every 6 Medical (six) Branch hours as needed for Pain (scale 4-6) for up to 30 doses. ibuprofen 2022-0 Yes [id number] 600mg Take 1 [facility] 600 mg 9-11 tablet by ity of tablet 00:00: mouth [place] 00 every 6 Medical (six) Branch hours as needed for Pain (scale 4-6) for up to 30 doses. ibuprofen 2022-0 Yes [id number] 600mg Take 1 [facility] 600 mg 9-11 tablet by ity of tablet 00:00: mouth [place] 00 every 6 Medical (six) Branch hours as needed for Pain (scale 4-6) for up to 30 doses. ibuprofen 2022-0 Yes [id number] 600mg Take 1 [facility] 600 mg 9-11 tablet by ity of tablet 00:00: mouth [place] 00 every 6 Medical (six) Branch hours as needed for Pain (scale 4-6) for up to 30 doses. ibuprofen 2022-0 Yes [id number] 600mg Take 1 [facility] 600 mg 9-11 tablet by ity of tablet 00:00: mouth [place] 00 every 6 Medical (six) Branch hours as needed for Pain (scale 4-6) for up to 30 doses. ibuprofen 2022-0 Yes [id number] 600mg Take 1 [facility] 600 mg 9-11 tablet by ity of tablet 00:00: mouth [place] 00 every 6 Medical (six) Branch hours as needed for Pain (scale 4-6) for up to 30 doses. ibuprofen 2022-0 Yes [id number] 600mg Take 1 [facility] 600 mg 9-11 tablet by ity of tablet 00:00: mouth [place] 00 every 6 Medical (six) Branch hours as needed for Pain (scale 4-6) for up to 30 doses. ibuprofen 2022-0 Yes [id number] 600mg Take 1 [facility] 600 mg 9-11 tablet by ity of tablet 00:00: mouth [place] 00 every 6 Medical (six) Branch hours as needed for Pain (scale 4-6) for up to 30 doses. ibuprofen 2022-0 Yes [id number] 600mg Take 1 [facility] 600 mg 9-11 tablet by ity of tablet 00:00: mouth [place] 00 every 6 Medical (six) Branch hours as needed for Pain (scale 4-6) for up to 30 doses. ibuprofen 2022-0 Yes [id number] 600mg Take 1 [facility] 600 mg 9-11 tablet by ity of tablet 00:00: mouth [place] 00 every 6 Medical (six) Branch hours as needed for Pain (scale 4-6) for up to 30 doses. ibuprofen 2022-0 Yes [id number] 600mg Take 1 [facility] 600 mg 9-11 tablet by ity of tablet 00:00: mouth [place] 00 every 6 Medical (six) Branch hours as needed for Pain (scale 4-6) for up to 30 doses. ibuprofen 2022-0 Yes [id number] 600mg Take 1 [facility] 600 mg 9-11 tablet by ity of tablet 00:00: mouth [place] 00 every 6 Medical (six) Branch hours as needed for Pain (scale 4-6) for up to 30 doses. ibuprofen 2022-0 Yes [id number] 600mg Take 1 [facility] 600 mg 9-11 tablet by ity of tablet 00:00: mouth [place] 00 every 6 Medical (six) Branch hours as needed for Pain (scale 4-6) for up to 30 doses. ibuprofen 2022-0 Yes [id number] 600mg Take 1 [facility] 600 [facility] 9-11 tablet by [facility] tablet 00:00: mouth [place] 00 every 6 Medical (six) Branch hours as needed for Pain (scale 4-6) for up to 30 doses. ibuprofen 2022-0 Yes [id number] 600mg Take 1 [facility] 600 mg 9-11 tablet by [facility] tablet 00:00: mouth [place] 00 every 6 Medical (six) Branch hours as needed for Pain (scale 4-6) for up to 30 doses. ibuprofen 2022-0 Yes [id number] 600mg Take 1 [facility] 600 mg 9-11 tablet by [facility] tablet 00:00: mouth [place] 00 every 6 Medical (six) Branch hours as needed for Pain (scale 4-6) for up to 30 doses. ibuprofen 2022-0 Yes [id number] 600mg Take 1 [facility] 600 mg 9-11 tablet by [facility] tablet 00:00: mouth [place] 00 every 6 Medical (six) Branch hours as needed for Pain (scale 4-6) for up to 30 doses. ibuprofen 2022-0 Yes [id number] 600mg Take 1 [facility] 600 mg 9-11 tablet by [facility] tablet 00:00: mouth [place] 00 every 6 Medical (six) Branch hours as needed for Pain (scale 4-6) for up to 30 doses. ibuprofen 2022-0 Yes [id number] 600mg Take 1 [facility] 600 mg 9-11 tablet by [facility] tablet 00:00: mouth [place] 00 every 6 Medical (six) Branch hours as needed for Pain (scale 4-6) for up to 30 doses. ibuprofen 2022-0 Yes [id number] 600mg Take 1 [facility] 600 mg 9-11 tablet by [facility] tablet 00:00: mouth [place] 00 every 6 Medical (six) Branch hours as needed for Pain (scale 4-6) for up to 30 doses. ibuprofen 2022-0 Yes [id number] 600mg Take 1 [facility] 600 mg 9-11 tablet by [facility] tablet 00:00: mouth [place] 00 every 6 Medical (six) Branch hours as needed for Pain (scale 4-6) for up to 30 doses. ibuprofen 2022-0 Yes [id number] 600mg Take 1 [facility] 600 mg 9-11 tablet by [facility] tablet 00:00: mouth [place] 00 every 6 Medical (six) Branch hours as needed for Pain (scale 4-6) for up to 30 doses. ibuprofen 2022-0 Yes [id number] 600mg Take 1 [facility] 600 mg 9-11 tablet by [facility] tablet 00:00: mouth [place] 00 every 6 Medical (six) Branch hours as needed for Pain (scale 4-6) for up to 30 doses. ibuprofen 2022-0 Yes [id number] 600mg Take 1 [facility] 600 mg 9-11 tablet by [facility] tablet 00:00: mouth [place] 00 every 6 Medical (six) Branch hours as needed for Pain (scale 4-6) for up to 30 doses. ibuprofen 2022-0 Yes [id number] 600mg Take 1 [facility] 600 mg 9-11 tablet by [facility] tablet 00:00: mouth [place] 00 every 6 Medical (six) Branch hours as needed for Pain (scale 4-6) for up to 30 doses. ibuprofen 2022-0 Yes [id number] 600mg Take 1 [facility] 600 mg 9-11 tablet by [facility] tablet 00:00: mouth [place] 00 every 6 Medical (six) Branch hours as needed for Pain (scale 4-6) for up to 30 doses. ibuprofen 2-0 Yes [id number] 600mg Take 1 [facility] 600 mg 9-11 tablet by [facility] tablet 00:00: mouth [place] 00 every 6 Medical (six) Branch hours as needed for Pain (scale 4-6) for up to 30 doses. ibuprofen 2-0 Yes [id number] 600mg Take 1 [facility] 600 mg 9-11 tablet by [facility] tablet 00:00: mouth [place] 00 every 6 Medical (six) Branch hours as needed for Pain (scale 4-6) for up to 30 doses. ibuprofen 2-0 Yes [id number] 600mg Take 1 [facility] 600 mg 9-11 tablet by [facility] tablet 00:00: mouth [place] 00 every 6 Medical (six) Branch hours as needed for Pain (scale 4-6) for up to 30 doses. ibuprofen 2022-0 Yes [id number] 600mg Take 1 [facility] 600 mg 9-11 tablet by [facility] tablet 00:00: mouth [place] 00 every 6 Medical (six) Branch hours as needed for Pain (scale 4-6) for up to 30 doses. ibuprofen 2022-0 Yes [id number] 600mg Take 1 [facility] 600 mg 9-11 tablet by [facility] tablet 00:00: mouth [place] 00 every 6 Medical (six) Branch hours as needed for Pain (scale 4-6) for up to 30 doses. ibuprofen 2022-0 Yes [id number] 600mg Take 1 [facility] 600 mg 9-11 tablet by [facility] tablet 00:00: mouth [place] 00 every 6 Medical (six) Branch hours as needed for Pain (scale 4-6) for up to 30 doses. ibuprofen 2022-0 Yes [id number] 600mg Take 1 [facility] 600 mg 9-11 tablet by [facility] tablet 00:00: mouth [place] 00 every 6 Medical (six) Branch hours as needed for Pain (scale 4-6) for up to 30 doses. ibuprofen 2022-0 Yes [id number] 600mg Take 1 [facility] 600 mg 9-11 tablet by [facility] tablet 00:00: mouth [place] 00 every 6 Medical (six) Branch hours as needed for Pain (scale 4-6) for up to 30 doses. ibuprofen 2022-0 Yes [id number] 600mg Take 1 [facility] 600 mg 9-11 tablet by [facility] tablet 00:00: mouth [place] 00 every 6 Medical (six) Branch hours as needed for Pain (scale 4-6) for up to 30 doses. ibuprofen 2022-0 Yes [id number] 600mg Take 1 [facility] 600 mg 9-11 tablet by [facility] tablet 00:00: mouth [place] 00 every 6 Medical (six) Branch hours as needed for Pain (scale 4-6) for up to 30 doses. ibuprofen 2022-0 Yes [id number] 600mg Take 1 [facility] 600 mg 9-11 tablet by [facility] tablet 00:00: mouth [place] 00 every 6 Medical (six) Branch hours as needed for Pain (scale 4-6) for up to 30 doses. ibuprofen 2022-0 Yes [id number] 600mg Take 1 [facility] 600 mg 9-11 tablet by [facility] tablet 00:00: mouth [place] 00 every 6 Medical (six) Branch hours as needed for Pain (scale 4-6) for up to 30 doses. ibuprofen 2022-0 Yes [id number] 600mg Take 1 [facility] 600 mg 9-11 tablet by [facility] tablet 00:00: mouth [place] 00 every 6 Medical (six) Branch hours as needed for Pain (scale 4-6) for up to 30 doses. ibuprofen 2022-0 Yes [id number] 600mg Take 1 [facility] 600 mg 9-11 tablet by [facility] tablet 00:00: mouth [place] 00 every 6 Medical (six) Branch hours as needed for Pain (scale 4-6) for up to 30 doses. ibuprofen 2022-0 Yes [id number] 600mg Take 1 [facility] 600 mg 9-11 tablet by [facility] tablet 00:00: mouth [place] 00 every 6 Medical (six) Branch hours as needed for Pain (scale 4-6) for up to 30 doses. ibuprofen 2022-0 Yes [id number] 600mg Take 1 [facility] 600 mg 9-11 tablet by [facility] tablet 00:00: mouth [place] 00 every 6 Medical (six) Branch hours as needed for Pain (scale 4-6) for up to 30 doses. ibuprofen 2022-0 Yes [id number] 600mg Take 1 [facility] 600 mg 9-11 tablet by [facility] tablet 00:00: mouth [place] 00 every 6 Medical (six) Branch hours as needed for Pain (scale 4-6) for up to 30 doses. ibuprofen 2022-0 Yes [id number] 600mg Take 1 [facility] 600 mg 9-11 tablet by [facility] tablet 00:00: mouth [place] 00 every 6 Medical (six) Branch hours as needed for Pain (scale 4-6) for up to 30 doses. ibuprofen 2022-0 Yes [id number] 600mg Take 1 [facility] 600 mg 9-11 tablet by [facility] tablet 00:00: mouth [place] 00 every 6 Medical (six) Branch hours as needed for Pain (scale 4-6) for up to 30 doses. ibuprofen 2022-0 Yes [id number] 600mg Take 1 [facility] 600 mg 9-11 tablet by [facility] tablet 00:00: mouth [place] 00 every 6 Medical (six) Branch hours as needed for Pain (scale 4-6) for up to 30 doses. ibuprofen 2022-0 Yes [id number] 600mg Take 1 [facility] 600 mg 9-11 tablet by [facility] tablet 00:00: mouth [place] 00 every 6 Medical (six) Branch hours as needed for Pain (scale 4-6) for up to 30 doses. ibuprofen 2022-0 Yes [id number] 600mg Take 1 [facility] 600 mg 9-11 tablet by [facility] tablet 00:00: mouth [place] 00 every 6 Medical (six) Branch hours as needed for Pain (scale 4-6) for up to 30 doses. ibuprofen 2022-0 Yes [id number] 600mg Take 1 [facility] 600 mg 9-11 tablet by [facility] tablet 00:00: mouth [place] 00 every 6 Medical (six) Branch hours as needed for Pain (scale 4-6) for up to 30 doses. ibuprofen 2022-0 Yes [id number] 600mg Take 1 [facility] 600 mg 9-11 tablet by [facility] tablet 00:00: mouth [place] 00 every 6 Medical (six) Branch hours as needed for Pain (scale 4-6) for up to 30 doses. ibuprofen 2022-0 Yes [id number] 600mg Take 1 [facility] 600 mg 9-11 tablet by [facility] tablet 00:00: mouth [place] 00 every 6 Medical (six) Branch hours as needed for Pain (scale 4-6) for up to 30 doses. ibuprofen 2022-0 Yes [id number] 600mg Take 1 [facility] 600 mg 9-11 tablet by [facility] tablet 00:00: mouth [place] 00 every 6 Medical (six) Branch hours as needed for Pain (scale 4-6) for up to 30 doses. ibuprofen 2022-0 Yes [id number] 600mg Take 1 [facility] 600 mg 9-11 tablet by [facility] tablet 00:00: mouth [place] 00 every 6 Medical (six) Branch hours as needed for Pain (scale 4-6) for up to 30 doses. ibuprofen 2022-0 Yes [id number] 600mg Take 1 [facility] 600 mg 9-11 tablet by [facility] tablet 00:00: mouth [place] 00 every 6 Medical (six) Branch hours as needed for Pain (scale 4-6) for up to 30 doses. ibuprofen 2022-0 Yes [id number] 600mg Take 1 [facility] 600 mg 9-11 tablet by [facility] tablet 00:00: mouth [place] 00 every 6 Medical (six) Branch hours as needed for Pain (scale 4-6) for up to 30 doses. ibuprofen 2022-0 Yes [id number] 600mg Take 1 [facility] 600 mg 9-11 tablet by [facility] tablet 00:00: mouth [place] 00 every 6 Medical (six) Branch hours as needed for Pain (scale 4-6) for up to 30 doses. ibuprofen 2022-0 Yes [id number] 600mg Take 1 [facility] 600 mg 9-11 tablet by [facility] tablet 00:00: mouth [place] 00 every 6 Medical (six) Branch hours as needed for Pain (scale 4-6) for up to 30 doses. ibuprofen 2022-0 Yes [id number] 600mg Take 1 [facility] 600 mg 9-11 tablet by [facility] tablet 00:00: mouth [place] 00 every 6 Medical (six) Branch hours as needed for Pain (scale 4-6) for up to 30 doses. ibuprofen 2022-0 Yes [id number] 600mg Take 1 [facility] 600 mg 9-11 tablet by [facility] tablet 00:00: mouth [place] 00 every 6 Medical (six) Branch hours as needed for Pain (scale 4-6) for up to 30 doses. ibuprofen 2022-0 Yes [id number] 600mg Take 1 [facility] 600 mg 9-11 tablet by [facility] tablet 00:00: mouth [place] 00 every 6 Medical (six) Branch hours as needed for Pain (scale 4-6) for up to 30 doses. ibuprofen 2-0 Yes [id number] 600mg Take 1 [facility] 600 mg 9-11 tablet by [facility] tablet 00:00: mouth [place] 00 every 6 Medical (six) Branch hours as needed for Pain (scale 4-6) for up to 30 doses. ibuprofen 2-0 Yes [id number] 600mg Take 1 [facility] 600 mg 9-11 tablet by [facility] tablet 00:00: mouth [place] 00 every 6 Medical (six) Branch hours as needed for Pain (scale 4-6) for up to 30 doses. ibuprofen 2-0 Yes [id number] 600mg Take 1 [facility] 600 mg 9-11 tablet by [facility] tablet 00:00: mouth [place] 00 every 6 Medical (six) Branch hours as needed for Pain (scale 4-6) for up to 30 doses. ibuprofen 2-0 Yes [id number] 600mg Take 1 [facility] 600 mg 9-11 tablet by [facility] tablet 00:00: mouth [place] 00 every 6 Medical (six) Branch hours as needed for Pain (scale 4-6) for up to 30 doses. ibuprofen 2-0 Yes [id number] 600mg Take 1 [facility] 600 mg 9-11 tablet by [facility] tablet 00:00: mouth [place] 00 every 6 Medical (six) Branch hours as needed for Pain (scale 4-6) for up to 30 doses. ibuprofen 2022-0 Yes [id number] 600mg Take 1 [facility] 600 mg 9-11 tablet by [facility] tablet 00:00: mouth [place] 00 every 6 Medical (six) Branch hours as needed for Pain (scale 4-6) for up to 30 doses. ibuprofen 2022-0 Yes [id number] 600mg Take 1 [facility] 600 mg 9-11 tablet by [facility] tablet 00:00: mouth [place] 00 every 6 Medical (six) Branch hours as needed for Pain (scale 4-6) for up to 30 doses. ibuprofen 2021-0 Yes [id number] 600mg Take 1 [facility] 600 mg 9-11 tablet by [facility] tablet 00:00: mouth [place] 00 every 6 Medical (six) Branch hours as needed for Pain (scale 4-6) for up to 30 doses. ibuprofen 2022-0 Yes [id number] 600mg Take 1 [facility] 600 mg 9-11 tablet by [facility] tablet 00:00: mouth [place] 00 every 6 Medical (six) Branch hours as needed for Pain (scale 4-6) for up to 30 doses. ibuprofen 2022-0 Yes [id number] 600mg Take 1 [facility] 600 mg 9-11 tablet by [facility] tablet 00:00: mouth [place] 00 every 6 Medical (six) Branch hours as needed for Pain (scale 4-6) for up to 30 doses. ibuprofen 2022-0 Yes [id number] 600mg Take 1 [facility] 600 mg 9-11 tablet by [facility] of tablet 00:00: mouth [place] 00 every 6 Medical (six) Branch hours as needed for Pain (scale 4-6) for up to 30 doses. ibuprofen 2022-0 Yes [id number] 600mg Take 1 [facility] 600 mg 9-11 tablet by [facility] tablet 00:00: mouth [place] 00 every 6 Medical (six) Branch hours as needed for Pain (scale 4-6) for up to 30 doses. ibuprofen 2022-0 Yes [id number] 600mg Take 1 [facility] 600 mg 9-11 tablet by [facility] of tablet 00:00: mouth [place] 00 every 6 Medical (six) Branch hours as needed for Pain (scale 4-6) for up to 30 doses. ibuprofen 2022-0 Yes [id number] 600mg Take 1 [facility] 600 mg 9-11 tablet by [facility] of tablet 00:00: mouth [place] 00 every 6 Medical (six) Branch hours as needed for Pain (scale 4-6) for up to 30 doses. ibuprofen 2022-0 Yes [id number] 600mg Take 1 [facility] 600 mg 9-11 tablet by [facility] of tablet 00:00: mouth [place] 00 every 6 Medical (six) Branch hours as needed for Pain (scale 4-6) for up to 30 doses. ibuprofen 2022-0 Yes [id number] 600mg Take 1 [facility] 600 mg 9-11 tablet by [facility] of tablet 00:00: mouth [place] 00 every 6 Medical (six) Branch hours as needed for Pain (scale 4-6) for up to 30 doses. ibuprofen 2021-0 Yes [id number] 600mg Take 1 [facility] 600 mg 9-11 tablet by [facility] of tablet 00:00: mouth [place] 00 every 6 Medical (six) Branch hours as needed for Pain (scale 4-6) for up to 30 doses. ibuprofen 2021-0 Yes [id number] 600mg Take 1 [facility] 600 mg 9-11 tablet by [facility] of tablet 00:00: mouth [place] 00 every 6 Medical (six) Branch hours as needed for Pain (scale 4-6) for up to 30 doses. ibuprofen 2021-0 Yes [id number] 600mg Take 1 [facility] 600 mg 9-11 tablet by [facility] of tablet 00:00: mouth [place] 00 every 6 Medical (six) Branch hours as needed for Pain (scale 4-6) for up to 30 doses. ibuprofen 2021-0 Yes [id number] 600mg Take 1 [facility] 600 mg 9-11 tablet by [facility] of tablet 00:00: mouth [place] 00 every 6 Medical (six) Branch hours as needed for Pain (scale 4-6) for up to 30 doses. ibuprofen 2021-0 Yes [id number] 600mg Take 1 [facility] 600 mg 9-11 tablet by [facility] of tablet 00:00: mouth [place] 00 every 6 Medical (six) Branch hours as needed for Pain (scale 4-6) for up to 30 doses. ibuprofen 2021-0 2022- No [id number] 600mg Take 1 [facility] 600 mg 9-11 05-23 tablet by [facility] of tablet 00:00: 00:00 mouth [place] 00 :00 every 6 Medical (six) Branch hours as needed for Pain (scale 4-6) for up to 30 doses. ibuprofen 2021-0 3- No [id number] 600mg Take 1 [facility] 600 mg 9-11 05-23 tablet by [facility] of tablet 00:00: 00:00 mouth [place] 00 :00 every 6 Medical (six) Branch hours as needed for Pain (scale 4-6) for up to 30 doses. cyclobenzap 2021-0 2- No [id number] 10mg Take 1 [facility] rine 10 mg 9-11 09-19 tablet by [facility] of tablet 00:00: 04:59 mouth in [place] 00 :00 the Medical morning Branch and 1 tablet at noon and 1 tablet in the evening. Do all this for 20 doses. cyclobenzap 2021-0 2021- No [id number] 10mg Take 1 [facility] rine 10 mg 02-21 tablet by [facility] of tablet 00:00: 04:59 mouth in [place] 00 :00 the Medical morning Branch and 1 tablet at noon and 1 tablet in the evening. Do all this for 20 doses. cyclobenzap 2021-0 2021- No [id number] 10mg Take 1 [facility] rine 10 mg 02-21 tablet by [facility] of tablet 00:00: 04:59 [...] Indication s: acute pain methocarbam 2022-0 Yes [id number] 500mg Take 1 [facility] oL 500 mg [...] Indication s: acute pain methocarbam 2022-0 Yes [id number] 500mg Take 1 [facility] oL 500 mg [...] Indication s: acute pain methocarbam 2022-0 Yes [id number] 500mg Take 1 [facility] oL 500 mg [...] Indication s: acute pain methocarbam 2022-0 Yes [id number] 500mg Take 1 [facility] oL 500 mg [...] Indication s: acute pain methocarbam 2022-0 Yes [id number] 500mg Take 1 [facility] oL 500 mg [...] Indication s: acute pain methocarbam 2022-0 Yes [id number] 500mg Take 1 [facility] oL 500 mg [...] Indication s: acute pain methocarbam 2022-0 Yes [id number] 500mg Take 1 [facility] oL 500 mg [...] Indication s: acute pain methocarbam 2022-0 Yes [id number] 500mg Take 1 [facility] oL 500 mg [...] Indication s: acute pain methocarbam 2022-0 Yes [id number] 500mg Take 1 [facility] oL 500 mg [...] Indication s: acute pain methocarbam 2022-0 Yes [id number] 500mg Take 1 [facility] oL 500 mg [...] Indication s: acute pain methocarbam 2022-0 Yes [id number] 500mg Take 1 [facility] oL 500 mg [...] Indication s: acute pain methocarbam 2022-0 Yes [id number] 500mg Take 1 [facility] oL 500 mg [...] Indication s: acute pain methocarbam 2022-0 Yes [id number] 500mg Take 1 [facility] oL 500 mg [...] Indication s: acute pain methocarbam 2022-0 Yes [id number] 500mg Take 1 [facility] oL 500 mg [...] Indication s: acute pain methocarbam 2022-0 Yes [id number] 500mg Take 1 [facility] oL 500 mg [...] Indication s: acute pain methocarbam 2021-0 Yes [id number] 500mg Take 1 [facility] oL 500 mg [...] Indication s: acute pain methocarbam 2021-0 Yes [id number] 500mg Take 1 [facility] oL 500 mg [...] Indication s: acute pain methocarbam 2021-0 Yes [id number] 500mg Take 1 [facility] oL 500 mg [...] Indication s: acute pain methocarbam 2022-0 Yes [id number] 500mg Take 1 [facility] oL 500 mg [...] Indication s: acute pain methocarbam 2022-0 Yes [id number] 500mg Take 1 [facility] oL 500 mg [...] Indication s: acute pain methocarbam 2021-0 Yes [id number] 500mg Take 1 [facility] oL 500 mg [...] Indication s: acute pain methocarbam 2-0 Yes [id number] 500mg Take 1 [facility] oL 500 mg [...] Indication s: acute pain methocarbam 2022-0 Yes [id number] 500mg Take 1 [facility] oL 500 mg [...] Indication s: acute pain methocarbam 2022-0 Yes [id number] 500mg Take 1 [facility] oL 500 mg [...] Indication s: acute pain methocarbam 2022-0 Yes [id number] 500mg Take 1 [facility] oL 500 mg [...] Indication s: acute pain methocarbam 2022-0 Yes [id number] 500mg Take 1 [facility] oL 500 mg [...] Indication s: acute pain methocarbam 2022-0 Yes [id number] 500mg Take 1 [facility] oL 500 mg [...] Indication s: acute pain methocarbam 2022-0 Yes [id number] 500mg Take 1 [facility] oL 500 mg [...] Indication s: acute pain methocarbam 2022-0 Yes [id number] 500mg Take 1 [facility] oL 500 mg [...] Indication s: acute pain methocarbam 2022-0 Yes [id number] 500mg Take 1 [facility] oL 500 mg [...] (scale 4-6). Indication s: acute pain acetaminoph 2021-0 Yes [id number] 1{tbl} Take 1 [facility] en-codeine 7-16 tablet by [facility] of 300-30 mg 00:00: mouth [place] tablet 00 every 6 Medical (six) Branch hours as needed for Pain (scale 4-6). Indication s: acute pain acetaminoph 2021-0 Yes [id number] 1{tbl} Take 1 [facility] en-codeine 7-16 tablet by [facility] of 300-30 mg 00:00: mouth [place] tablet 00 every 6 Medical (six) Branch hours as needed for Pain (scale 4-6). Indication s: acute pain acetaminoph 2021-0 Yes [id number] 1{tbl} Take 1 [facility] en-codeine 7-16 tablet by [facility] of 300-30 mg 00:00: mouth [place] tablet 00 every 6 Medical (six) Branch hours as needed for Pain (scale 4-6). Indication s: acute pain acetaminoph 2021-0 Yes 4647 1{tbl} Take 1 [facility] en-codeine 7-16 tablet by [facility] of 300-30 mg 00:00: mouth [place] tablet 00 every 6 Medical (six) Branch hours as needed for Pain (scale 4-6). Indication s: acute pain acetaminoph 2021-2022- No 4647 1{tbl} Take 1 [facility] nivers en-codeine 7-16 05-15 tablet by [facility] of 300-30 mg 00:00: 00:00 mouth [place] tablet 00 :00 every 6 Medical (six) Branch hours as needed for Pain (scale 4-6). Indication s: acute pain acetaminoph 2021-0 2022- No 4647 1{tbl} Take 1 [facility] nivers en-codeine 7-16 05-15 tablet by [facility] of 300-30 mg 00:00: 00:00 mouth [place] tablet 00 :00 every 6 Medical (six) Branch hours as needed for Pain (scale 4-6). Indication s: acute pain methocarbam 2021-0 2- No [id number] 500mg Take 1 [facility] oL 500 mg 7-16 12-15 tablet by [facility] of tablet 00:00: 00:00 mouth 4 [place] 00 :00 (four) Medical times Branch daily as needed for Pain (scale 1-3). methocarbam 0 2021- No [id number] 500mg Take 1 [facility] oL 500 mg 7-16 12-15 tablet by [facility] of tablet 00:00: 00:00 mouth 4 [place] 00 :00 (four) Medical times Branch daily as needed for Pain (scale 1-3). lidocaine 5 Yes [id number] 1{patch Apply 1 [facility] % (700 6-15 } Patch to [facility] of mg/patch) 00:00: area(s) as [place] patch 00 needed Medical (pain). Branch Apply up to 3 patches to painful areas. 12hrs on 12hrs off lidocaine 5 2021- Yes [id number] 1{patch Apply 1 [facility] % (700 6-15 } Patch to [facility] of mg/patch) 00:00: area(s) as [place] patch 00 needed Medical (pain). Branch Apply up to 3 patches to painful areas. 12hrs on 12hrs off lidocaine 5 2021-0 Yes [id number] 1{patch Apply 1 [facility] % (700 6-15 } Patch to [facility] of mg/patch) 00:00: area(s) as [place] patch 00 needed Medical (pain). Branch Apply up to 3 patches to painful areas. 12hrs on 12hrs off lidocaine 5 2021-0 Yes [id number] 1{patch Apply 1 [facility] % (700 6-15 } Patch to [facility] of mg/patch) 00:00: area(s) as [place] patch 00 needed Medical (pain). Branch Apply up to 3 patches to painful areas. 12hrs on 12hrs off lidocaine 5 2021-0 Yes [id number] 1{patch Apply 1 [facility] % (700 6-15 } Patch to [facility] of mg/patch) 00:00: area(s) as [place] patch 00 needed Medical (pain). Branch Apply up to 3 patches to painful areas. 12hrs on 12hrs off lidocaine 5 2021-0 Yes [id number] 1{patch Apply 1 [facility] % (700 6-15 } Patch to [facility]y of mg/patch) 00:00: area(s[place] as [place] patch 00 needed Medical (pain). Branch Apply up to 3 patches to painful areas. 12hrs on 12hrs off lidocaine 5 2022-0 Yes [id number] 1{patch Apply 1 [facility] % (700 6-15 } Patch to [facility]y of mg/patch) 00:00: area(s[place] as [place] patch 00 needed Medical (pain). Branch Apply up to 3 patches to painful areas. 12hrs on 12hrs off lidocaine 5 2022-0 Yes [id number] 1{patch Apply 1 [facility] % (700 6-15 } Patch to [facility]y of mg/patch) 00:00: area(s[place] as [place] patch 00 needed Medical (pain). Branch Apply up to 3 patches to painful areas. 12hrs on 12hrs off lidocaine 5 2022-0 Yes [id number] 1{patch Apply 1 [facility] % (700 6-15 } Patch to [facility] of mg/patch) 00:00: area(s[place] as [place] patch 00 needed Medical (pain). Branch Apply up to 3 patches to painful areas. 12hrs on 12hrs off lidocaine 5 2022-0 Yes [id number] 1{patch Apply 1 [facility] % (700 6-15 } Patch to [facility]y of mg/patch) 00:00: area(s[place] as [place] patch 00 needed Medical (pain). Branch Apply up to 3 patches to painful areas. 12hrs on 12hrs off lidocaine 5 2022-0 Yes [id number] 1{patch Apply 1 [facility] % (700 6-15 } Patch to [facility]y of mg/patch) 00:00: area(s[place] as [place] patch 00 needed Medical (pain). Branch Apply up to 3 patches to painful areas. 12hrs on 12hrs off lidocaine 5 2022-0 Yes [id number] 1{patch Apply 1 [facility] % (700 6-15 } Patch to [facility]y of mg/patch) 00:00: area(s[place] as [place] patch 00 needed Medical (pain). Branch Apply up to 3 patches to painful areas. 12hrs on 12hrs off lidocaine 5 2022-0 Yes [id number] 1{patch Apply 1 [facility] % (700 6-15 } Patch to [facility]y of mg/patch) 00:00: area(s[place] as [place] patch 00 needed Medical (pain). Branch Apply up to 3 patches to painful areas. 12hrs on 12hrs off lidocaine 5 2022-0 Yes [id number] 1{patch Apply 1 [facility] % (700 6-15 } Patch to [facility] of mg/patch) 00:00: area(s) as [place] patch 00 needed Medical (pain). Branch Apply up to 3 patches to painful areas. 12hrs on 12hrs off lidocaine 5 2022-0 Yes [id number] 1{patch Apply 1 [facility] % (700 6-15 } Patch to [facility]y of mg/patch) 00:00: area(s[place] as [place] patch 00 needed Medical (pain). Branch Apply up to 3 patches to painful areas. 12hrs on 12hrs off lidocaine 5 2022-0 Yes [id number] 1{patch Apply 1 [facility] % (700 6-15 } Patch to [facility]y of mg/patch) 00:00: area(s[place] as [place] patch 00 needed Medical (pain). Branch Apply up to 3 patches to painful areas. 12hrs on 12hrs off lidocaine 5 2022-0 Yes [id number] 1{patch Apply 1 [facility] % (700 6-15 } Patch to [facility]y of mg/patch) 00:00: area(s[place] as [place] patch 00 needed Medical (pain). Branch Apply up to 3 patches to painful areas. 12hrs on 12hrs off lidocaine 5 2022-0 Yes [id number] 1{patch Apply 1 [facility] % (700 6-15 } Patch to [facility] of mg/patch) 00:00: area(s[place] as [place] patch 00 needed Medical (pain). Branch Apply up to 3 patches to painful areas. 12hrs on 12hrs off lidocaine 5 2022-0 Yes [id number] 1{patch Apply 1 [facility] % (700 6-15 } Patch to [facility]y of mg/patch) 00:00: area(s[place] as [place] patch 00 needed Medical (pain). Branch Apply up to 3 patches to painful areas. 12hrs on 12hrs off lidocaine 5 2022-0 Yes [id number] 1{patch Apply 1 [facility] % (700 6-15 } Patch to [facility]y of mg/patch) 00:00: area(s[place] as [place] patch 00 needed Medical (pain). Branch Apply up to 3 patches to painful areas. 12hrs on 12hrs off lidocaine 5 2022-0 Yes [id number] 1{patch Apply 1 [facility] % (700 6-15 } Patch to ity of mg/patch) 00:00: area(s[place] as [place] patch 00 needed Medical (pain). Branch Apply up to 3 patches to painful areas. 12hrs on 12hrs off lidocaine 5 2022-0 Yes [id number] 1{patch Apply 1 [facility] % (700 6-15 } Patch to [facility]y of mg/patch) 00:00: area(s[place] as [place] patch 00 needed Medical (pain). Branch Apply up to 3 patches to painful areas. 12hrs on 12hrs off lidocaine 5 2022-0 Yes [id number] 1{patch Apply 1 [facility] % (700 6-15 } Patch to ity of mg/patch) 00:00: area(s) as [place] patch 00 needed Medical (pain). Branch Apply up to 3 patches to painful areas. 12hrs on 12hrs off lidocaine 5 2022-0 Yes [id number] 1{patch Apply 1 [facility] % (700 6-15 } Patch to [facility]y of mg/patch) 00:00: area(s) [place] patch 00 needed Medical (pain). Branch Apply up to 3 patches to painful areas. 12hrs on 12hrs off lidocaine 5 2022-0 Yes [id number] 1{patch Apply 1 [facility] % (700 6-15 } Patch to [facility]y of mg/patch) 00:00: area(s[place] patch 00 needed Medical (pain). Branch Apply up to 3 patches to painful areas. 12hrs on 12hrs off lidocaine 5 2022-0 Yes [id number] 1{patch Apply 1 [facility] % (700 6-15 } Patch to ity of mg/patch) 00:00: area(s) [place] patch 00 needed Medical (pain). Branch Apply up to 3 patches to painful areas. 12hrs on 12hrs off lidocaine 5 2022-0 Yes [id number] 1{patch Apply 1 [facility] % (700 6-15 } Patch to [facility]y of mg/patch) 00:00: area(s[place] patch 00 needed Medical (pain). Branch Apply up to 3 patches to painful areas. 12hrs on 12hrs off lidocaine 5 2022-0 Yes [id number] 1{patch Apply 1 [facility] % (700 6-15 } Patch to [facility]y of mg/patch) 00:00: area(s[place] patch 00 needed Medical (pain). Branch Apply up to 3 patches to painful areas. 12hrs on 12hrs off lidocaine 5 2-0 Yes [id number] 1{patch Apply 1 [facility] % (700 6-15 } Patch to [facility]y of mg/patch) 00:00: area(s[place] patch 00 needed Medical (pain). Branch Apply up to 3 patches to painful areas. 12hrs on 12hrs off lidocaine 5 2-0 2022- No [id number] 1{patch Apply 1 [facility] % (700 6-15 12-13 } Patch to ity of mg/patch) 00:00: 00:00 area(s) [place] patch 00 :00 needed Medical (pain). Branch Apply up to 3 patches to painful areas. 12hrs on 12hrs off cephALEXin 2022-0 Yes [id number] 500mg Take 1 [facility] (KEFLEX) 6-09 capsule by ity o f 500 mg 00:00: mouth 3 [place] capsule 00 (three) Medical times Branch daily. cephALEXin 2022-0 Yes [id number] 500mg Take 1 [facility] (KEFLEX) 6-09 capsule by ity o f 500 mg 00:00: mouth 3 [place] capsule 00 (three) Medical times Branch daily. cephALEXin 2022-0 Yes [id number] 500mg Take 1 [facility] (KEFLEX) 6-09 capsule by ity o f 500 mg 00:00: mouth 3 [place] capsule 00 (three) Medical times Branch daily. cephALEXin 2022-0 Yes [id number] 500mg Take 1 [facility] (KEFLEX) 6-09 capsule by ity o f 500 mg 00:00: mouth 3 [place] capsule 00 (three) Medical times Branch daily. cephALEXin 2022-0 Yes [id number] 500mg Take 1 [facility] (KEFLEX) 6-09 capsule by ity o f 500 mg 00:00: mouth 3 [place] capsule 00 (three) Medical times Branch daily. cephALEXin 2022-0 Yes [id number] 500mg Take 1 [facility] (KEFLEX) 6-09 capsule by ity o f 500 mg 00:00: mouth 3 [place] capsule 00 (three) Medical times Branch daily. cephALEXin 2022-0 Yes [id number] 500mg Take 1 [facility] (KEFLEX) 6-09 capsule by ity o f 500 mg 00:00: mouth 3 [place] capsule 00 (three) Medical times Branch daily. cephALEXin 2022-0 Yes [id number] 500mg Take 1 [facility] (KEFLEX) 6-09 capsule by ity o f 500 mg 00:00: mouth 3 [place] capsule 00 (three) Medical times Branch daily. cephALEXin 2022-0 Yes [id number] 500mg Take 1 [facility] (KEFLEX) 6-09 capsule by ity o f 500 mg 00:00: mouth 3 [place] capsule 00 (three) Medical times Branch daily. cephALEXin 2022-0 Yes [id number] 500mg Take 1 [facility] (KEFLEX) 6-09 capsule by ity o f 500 mg 00:00: mouth 3 [place] capsule 00 (three) Medical times Branch daily. cephALEXin 2022-0 Yes [id number] 500mg Take 1 [facility] (KEFLEX) 6-09 capsule by ity o f 500 mg 00:00: mouth 3 [place] capsule 00 (three) Medical times Branch daily. cephALEXin 2022-0 Yes [id number] 500mg Take 1 [facility] (KEFLEX) 6-09 capsule by ity o f 500 mg 00:00: mouth 3 [place] capsule 00 (three) Medical times Branch daily. cephALEXin 2022-0 Yes [id number] 500mg Take 1 [facility] (KEFLEX) 6-09 capsule by ity o f 500 mg 00:00: mouth 3 [place] capsule 00 (three) Medical times Branch daily. cephALEXin 2022-0 Yes [id number] 500mg Take 1 [facility] (KEFLEX) 6-09 capsule by ity o f 500 mg 00:00: mouth 3 [place] capsule 00 (three) Medical times Branch daily. cephALEXin 2022-0 Yes [id number] 500mg Take 1 [facility] (KEFLEX) 6-09 capsule by ity o f 500 mg 00:00: mouth 3 [place] capsule 00 (three) Medical times Branch daily. cephALEXin 2022-0 Yes [id number] 500mg Take 1 [facility] (KEFLEX) 6-09 capsule by ity o f 500 mg 00:00: mouth 3 [place] capsule 00 (three) Medical times Branch daily. cephALEXin 2022-0 Yes [id number] 500mg Take 1 [facility] (KEFLEX) 6-09 capsule by ity o f 500 mg 00:00: mouth 3 [place] capsule 00 (three) Medical times Branch daily. cephALEXin 2022-0 Yes [id number] 500mg Take 1 [facility] (KEFLEX) 6-09 capsule by ity o f 500 mg 00:00: mouth 3 [place] capsule 00 (three) Medical times Branch daily. cephALEXin 2022-0 Yes [id number] 500mg Take 1 [facility] (KEFLEX) 6-09 capsule by ity o f 500 mg 00:00: mouth 3 [place] capsule 00 (three) Medical times Branch daily. cephALEXin 2022-0 Yes [id number] 500mg Take 1 [facility] (KEFLEX) 6-09 capsule by ity o f 500 mg 00:00: mouth 3 [place] capsule 00 (three) Medical times Branch daily. cephALEXin 2022-0 Yes [id number] 500mg Take 1 [facility] (KEFLEX) 6-09 capsule by ity o f 500 mg 00:00: mouth 3 [place] capsule 00 (three) Medical times Branch daily. cephALEXin 2022-0 Yes [id number] 500mg Take 1 [facility] (KEFLEX) 6-09 capsule by ity o f 500 mg 00:00: mouth 3 [place] capsule 00 (three) Medical times Branch daily. cephALEXin 2022-0 Yes [id number] 500mg Take 1 [facility] (KEFLEX) 6-09 capsule by ity o f 500 mg 00:00: mouth 3 [place] capsule 00 (three) Medical times Branch daily. cephALEXin 2022-0 Yes [id number] 500mg Take 1 [facility] (KEFLEX) 6-09 capsule by ity o f 500 mg 00:00: mouth 3 [place] capsule 00 (three) Medical times Branch daily. cephALEXin 2022-0 Yes [id number] 500mg Take 1 [facility] (KEFLEX) 6-09 capsule by ity o f 500 mg 00:00: mouth 3 [place] capsule 00 (three) Medical times Branch daily. cephALEXin 2022-0 Yes [id number] 500mg Take 1 [facility] (KEFLEX) 6-09 capsule by ity o f 500 mg 00:00: mouth 3 [place] capsule 00 (three) Medical times Branch daily. cephALEXin 2022-0 Yes [id number] 500mg Take 1 [facility] (KEFLEX) 6-09 capsule by ity o f 500 mg 00:00: mouth 3 [place] capsule 00 (three) Medical times Branch daily. cephALEXin 2022-0 Yes [id number] 500mg Take 1 [facility] (KEFLEX) 6-09 capsule by ity o f 500 mg 00:00: mouth 3 [place] capsule 00 (three) Medical times Branch daily. cephALEXin 2022-0 Yes [id number] 500mg Take 1 [facility] (KEFLEX) 6-09 capsule by ity o f 500 mg 00:00: mouth 3 [place] capsule 00 (three) Medical times Branch daily. cephALEXin 2022-0 Yes [id number] 500mg Take 1 [facility] (KEFLEX) 6-09 capsule by ity o f 500 mg 00:00: mouth 3 [place] capsule 00 (three) Medical times Branch daily. cephALEXin 2022-0 Yes [id number] 500mg Take 1 [facility] (KEFLEX) 6-09 capsule by ity o f 500 mg 00:00: mouth 3 [place] capsule 00 (three) Medical times Branch daily. cephALEXin 2022-0 Yes [id number] 500mg Take 1 [facility] (KEFLEX) 6-09 capsule by ity o f 500 mg 00:00: mouth 3 [place] capsule 00 (three) Medical times Branch daily. cephALEXin 2022-0 Yes [id number] 500mg Take 1 [facility] (KEFLEX) 6-09 capsule by ity o f 500 mg 00:00: mouth 3 [place] capsule 00 (three) Medical times Branch daily. cephALEXin 2022-0 Yes [id number] 500mg Take 1 [facility] (KEFLEX) 6-09 capsule by ity o f 500 mg 00:00: mouth 3 [place] capsule 00 (three) Medical times Branch daily. cephALEXin 2022-0 Yes [id number] 500mg Take 1 [facility] (KEFLEX) 6-09 capsule by ity o f 500 mg 00:00: mouth 3 [place] capsule 00 (three) Medical times Branch daily. cephALEXin 2022-0 Yes [id number] 500mg Take 1 [facility] (KEFLEX) 6-09 capsule by ity o f 500 mg 00:00: mouth 3 [place] capsule 00 (three) Medical times Branch daily. cephALEXin 2022-0 Yes [id number] 500mg Take 1 [facility] (KEFLEX) 6-09 capsule by ity o f 500 mg 00:00: mouth 3 [place] capsule 00 (three) Medical times Branch daily. cephALEXin 2022-0 Yes [id number] 500mg Take 1 [facility] (KEFLEX) 6-09 capsule by ity o f 500 mg 00:00: mouth 3 [place] capsule 00 (three) Medical times Branch daily. cephALEXin 2022-0 Yes [id number] 500mg Take 1 [facility] (KEFLEX) 6-09 capsule by ity o f 500 mg 00:00: mouth 3 [place] capsule 00 (three) Medical times Branch daily. cephALEXin 2022-0 Yes [id number] 500mg Take 1 [facility] (KEFLEX) 6-09 capsule by ity o f 500 mg 00:00: mouth 3 [place] capsule 00 (three) Medical times Branch daily. cephALEXin 2022-0 Yes [id number] 500mg Take 1 [facility] (KEFLEX) 6-09 capsule by ity o f 500 mg 00:00: mouth 3 [place] capsule 00 (three) Medical times Branch daily. cephALEXin 2022-0 Yes [id number] 500mg Take 1 [facility] (KEFLEX) 6-09 capsule by ity o f 500 mg 00:00: mouth 3 [place] capsule 00 (three) Medical times Branch daily. cephALEXin 2022-0 Yes [id number] 500mg Take 1 [facility] (KEFLEX) 6-09 capsule by ity o f 500 mg 00:00: mouth 3 [place] capsule 00 (three) Medical times Branch daily. cephALEXin 2022-0 Yes [id number] 500mg Take 1 [facility] (KEFLEX) 6-09 capsule by ity o f 500 mg 00:00: mouth 3 [place] capsule 00 (three) Medical times Branch daily. cephALEXin 2022-0 Yes [id number] 500mg Take 1 [facility] (KEFLEX) 6-09 capsule by ity o f 500 mg 00:00: mouth 3 [place] capsule 00 (three) Medical times Branch daily. cephALEXin 2022-0 Yes [id number] 500mg Take 1 [facility] (KEFLEX) 6-09 capsule by ity o f 500 mg 00:00: mouth 3 [place] capsule 00 (three) Medical times Branch daily. cephALEXin 2022-0 Yes [id number] 500mg Take 1 [facility] (KEFLEX) 6-09 capsule by ity o f 500 mg 00:00: mouth 3 [place] capsule 00 (three) Medical times Branch daily. cephALEXin 2022-0 Yes [id number] 500mg Take 1 [facility] (KEFLEX) 6-09 capsule by ity o f 500 mg 00:00: mouth 3 [place] capsule 00 (three) Medical times Branch daily. cephALEXin 2022-0 Yes [id number] 500mg Take 1 [facility] (KEFLEX) 6-09 capsule by ity o f 500 mg 00:00: mouth 3 [place] capsule 00 (three) Medical times Branch daily. cephALEXin 2022-0 Yes [id number] 500mg Take 1 [facility] (KEFLEX) 6-09 capsule by ity o f 500 mg 00:00: mouth 3 [place] capsule 00 (three) Medical times Branch daily. cephALEXin 2022-0 Yes [id number] 500mg Take 1 [facility] (KEFLEX) 6-09 capsule by ity o f 500 mg 00:00: mouth 3 [place] capsule 00 (three) Medical times Branch daily. pregabalin 2021-0 Yes [id number] 1-2 cap po [facility] 75 mg 3-29 TID prn ity of capsule 00:00: low back pain Medical Branch methocarbam 2021-0 Yes [id number] 750mg Take 1 [facility] oL 750 mg 3-29 tablet by ity o f tablet 00:00: mouth (four) Medical times Branch daily as needed (muscle spasm, low back pain). For low back pain, muscle spasm. Alternate with cyclobenza manasa pregabalin 2021-0 Yes [id number] 1-2 cap po [facility] 75 mg 3-29 TID prn ity of capsule 00:00: low back pain Medical Branch methocarbam 2021-0 Yes [id number] 750mg Take 1 [facility] oL 750 mg 3-29 tablet by ity o f tablet 00:00: mouth (four) Medical times Branch daily as needed (muscle spasm, low back pain). For low back pain, muscle spasm. Alternate with cyclobenza manasa pregabalin 2-0 Yes [id number] 1-2 cap po [facility] 75 mg 3-29 TID prn ity of capsule 00:00: low back 00 pain Medical Branch methocarbam 2021-0 Yes [id number] 750mg Take 1 [facility] oL 750 mg 3-29 tablet by ity o f tablet 00:00: mouth 4 (four) Medical times Branch daily as needed (muscle spasm, low back pain). For low back pain, muscle spasm. Alternate with cyclobenza manasa pregabalin Yes [id number] 1-2 cap po [facility] 75 mg 3-29 TID prn ity of capsule 00:00: low back [place] pain Medical Branch methocarbam Yes [id number] 750mg Take 1 [facility] oL 750 mg 3-29 tablet by ity o f tablet 00:00: mouth 4 (four) Medical times Branch daily as needed (muscle spasm, low back pain). For low back pain, muscle spasm. Alternate with cyclobenza manasa pregabalin Yes [id number] 1-2 cap po [facility] 75 mg 3-29 TID prn ity of capsule 00:00: low back [place] pain Medical Branch methocarbam Yes [id number] 750mg Take 1 [facility] oL 750 mg 3-29 tablet by ity o f tablet 00:00: mouth (four) Medical times Branch daily as needed (muscle spasm, low back pain). For low back pain, muscle spasm. Alternate with cyclobenza manasa pregabalin Yes [id number] 1-2 cap po [facility] 75 mg 3-29 TID prn ity of capsule 00:00: low back [place] pain Medical Branch methocarbam Yes [id number] 750mg Take 1 [facility] oL 750 mg 3-29 tablet by ity o f tablet 00:00: mouth (four) Medical times Branch daily as needed (muscle spasm, low back pain). For low back pain, muscle spasm. Alternate with cyclobenza manasa pregabalin Yes [id number] 1-2 cap po [facility] 75 mg 3-29 TID prn ity of capsule 00:00: low back [place] pain Medical Branch methocarbam Yes [id number] 750mg Take 1 [facility] oL 750 mg 3-29 tablet by ity o f tablet 00:00: mouth (four) Medical times Branch daily as needed (muscle spasm, low back pain). For low back pain, muscle spasm. Alternate with cyclobenza manasa pregabalin Yes [id number] 1-2 cap po [facility] 75 mg 3-29 TID prn ity of capsule 00:00: low back [place] pain Medical Branch methocarbam Yes [id number] 750mg Take 1 [facility] oL 750 mg 3-29 tablet by ity o f tablet 00:00: mouth (four) Medical times Branch daily as needed (muscle spasm, low back pain). For low back pain, muscle spasm. Alternate with cyclobenza manasa pregabalin Yes [id number] 1-2 cap po [facility] 75 mg 3-29 TID prn ity of capsule 00:00: low back pain Medical Branch methocarbam 0 Yes [id number] 750mg Take 1 [facility] oL 750 mg 3-29 tablet by ity o f tablet 00:00: mouth (four) Medical times Branch daily as needed (muscle spasm, low back pain). For low back pain, muscle spasm. Alternate with cyclobenza manasa pregabalin Yes [id number] 1-2 cap po [facility] 75 mg 3-29 TID prn ity of capsule 00:00: low back [place] pain Medical Branch methocarbam Yes [id number] 750mg Take 1 [facility] oL 750 mg 3-29 tablet by ity o f tablet 00:00: mouth (four) Medical times Branch daily as needed (muscle spasm, low back pain). For low back pain, muscle spasm. Alternate with cyclobenza manasa pregabalin Yes [id number] 1-2 cap po [facility] 75 mg 3-29 TID prn ity of capsule 00:00: low back [place] pain Medical Branch methocarbam 0 Yes [id number] 750mg Take 1 [facility] oL 750 mg 3-29 tablet by ity o f tablet 00:00: mouth (four) Medical times Branch daily as needed (muscle spasm, low back pain). For low back pain, muscle spasm. Alternate with cyclobenza manasa pregabalin 0 Yes [id number] 1-2 cap po [facility] 75 mg 3-29 TID prn ity of capsule 00:00: low back [place] pain Medical Branch methocarbam 0 Yes [id number] 750mg Take 1 [facility] oL 750 mg 3-29 tablet by ity o f tablet 00:00: mouth (four) Medical times Branch daily as needed (muscle spasm, low back pain). For low back pain, muscle spasm. Alternate with cyclobenza manasa pregabalin 0 Yes [id number] 1-2 cap po [facility] 75 mg 3-29 TID prn ity of capsule 00:00: low back [place] pain Medical Branch methocarbam 2021-0 Yes [id number] 750mg Take 1 [facility] oL 750 mg 3-29 tablet by ity o f tablet 00:00: mouth 4 (four) Medical times Branch daily as needed (muscle spasm, low back pain). For low back pain, muscle spasm. Alternate with cyclobenza manasa pregabalin 0 Yes [id number] 1-2 cap po [facility] 75 mg 3-29 TID prn ity of capsule 00:00: low back [place] pain Medical [facility] methocarbam 0 Yes [id number] 750mg Take 1 [facility] oL 750 mg 3-29 tablet by ity o f tablet 00:00: mouth (four) Medical times Branch daily as needed (muscle spasm, low back pain). For low back pain, muscle spasm. Alternate with cyclobenza manasa pregabalin Yes [id number] 1-2 cap po [facility] 75 mg 3-29 TID prn ity of capsule 00:00: low back [place] pain Medical [facility] methocarbam 0 Yes [id number] 750mg Take 1 [facility] oL 750 mg 3-29 tablet by ity o f tablet 00:00: mouth 4 (four) Medical times Branch daily as needed (muscle spasm, low back pain). For low back pain, muscle spasm. Alternate with cyclobenza [facility] pregabalin 0 Yes [id number] 1-2 cap po [facility] 75 mg 3-29 TID prn ity of capsule 00:00: low back [place] pain Medical [facility] methocarbam 0 Yes [id number] 750mg Take 1 [facility] oL 750 mg 3-29 tablet by ity o f tablet 00:00: mouth 4 (four) Medical times Branch daily as needed (muscle spasm, low back pain). For low back pain, muscle spasm. Alternate with cyclobenza [facility] pregabalin 2021-0 Yes [id number] 1-2 cap po [facility] 75 mg 3-29 TID prn ity of capsule 00:00: low back pain Medical Branch methocarbam 0 Yes [id number] 750mg Take 1 [facility] oL 750 mg 3-29 tablet by ity o f tablet 00:00: mouth 4 (four) Medical times Branch daily as needed (muscle spasm, low back pain). For low back pain, muscle spasm. Alternate with cyclobenza manasa pregabalin Yes [id number] 1-2 cap po [facility] 75 mg 3-29 TID prn ity of capsule 00:00: low back pain Medical Branch methocarbam 0 Yes [id number] 750mg Take 1 [facility] oL 750 mg 3-29 tablet by ity o f tablet 00:00: mouth (four) Medical times Branch daily as needed (muscle spasm, low back pain). For low back pain, muscle spasm. Alternate with cyclobenza manasa pregabalin Yes [id number] 1-2 cap po [facility] 75 mg 3-29 TID prn ity of capsule 00:00: low back pain Medical Branch methocarbam Yes [id number] 750mg Take 1 [facility] oL 750 mg 3-29 tablet by ity o f tablet 00:00: mouth (four) [facility] times [place] daily as needed (muscle spasm, low back pain). For low back pain, muscle spasm. Alternate with cyclobenza manasa pregabalin Yes [id number] 1-2 cap po [facility] 75 mg 3-29 TID prn ity of capsule 00:00: low back pain Medical [facility] methocarbam 0 Yes [id number] 750mg Take 1 [facility] oL 750 mg 3-29 tablet by ity o f tablet 00:00: mouth (four) Medical times Branch daily as needed (muscle spasm, low back pain). For low back pain, muscle spasm. Alternate with cyclobenza manasa pregabalin 0 Yes [id number] 1-2 cap po [facility] 75 mg 3-29 TID prn ity of capsule 00:00: low back pain Medical [facility] methocarbam 0 Yes [id number] 750mg Take 1 [facility] oL 750 mg 3-29 tablet by ity o f tablet 00:00: mouth 4 (four) Medical times Branch daily as needed (muscle spasm, low back pain). For low back pain, muscle spasm. Alternate with cyclobenza [facility] pregabalin 2021-0 Yes [id number] 1-2 cap po [facility] 75 mg 3-29 TID prn ity of capsule 00:00: low back [place] pain [facility] methocarbam 2021-0 Yes [id number] 750mg Take 1 [facility] oL 750 mg 3-29 tablet by ity o f tablet 00:00: mouth (four) Medical times Branch daily as needed (muscle spasm, low back pain). For low back pain, muscle spasm. Alternate with cyclobenza manasa pregabalin 2021-0 Yes [id number] 1-2 cap po [facility] 75 mg 3-29 TID prn ity of capsule 00:00: low back [place] pain [facility] methocarbam 2021-0 Yes [id number] 750mg Take 1 [facility] oL 750 mg 3-29 tablet by ity o f tablet 00:00: mouth (four) Medical times Branch daily as needed (muscle spasm, low back pain). For low back pain, muscle spasm. Alternate with cyclobenza manasa pregabalin 2021-0 Yes [id number] 1-2 cap po [facility] 75 mg 3-29 TID prn ity of capsule 00:00: low back [place] pain [facility] methocarbam 2021-0 Yes [id number] 750mg Take 1 [facility] oL 750 mg 3-29 tablet by ity o f tablet 00:00: mouth (four) Medical times Branch daily as needed (muscle spasm, low back pain). For low back pain, muscle spasm. Alternate with cyclobenza man[facility] pregabalin 2021-0 Yes [id number] 1-2 cap po [facility] 75 mg 3-29 TID prn ity of capsule 00:00: low back [place] pain Medical [facility] methocarbam 2021-0 Yes [id number] 750mg Take 1 [facility] oL 750 mg 3-29 tablet by ity o f tablet 00:00: mouth (four) Medical times Branch daily as needed (muscle spasm, low back pain). For low back pain, muscle spasm. Alternate with cyclobenza manasa pregabalin 2021-0 Yes [id number] 1-2 cap po [facility] 75 mg 3-29 TID prn ity of capsule 00:00: low back pain Medical Branch methocarbam Yes [id number] 750mg Take 1 [facility] oL 750 mg 3-29 tablet by ity o f tablet 00:00: mouth 4 (four) Medical times Branch daily as needed (muscle spasm, low back pain). For low back pain, muscle spasm. Alternate with cyclobenza manasa pregabalin Yes [id number] 1-2 cap po [facility] 75 mg 3-29 TID prn ity of capsule 00:00: low back [place] pain [facility] methocarbam Yes [id number] 750mg Take 1 [facility] oL 750 mg 3-29 tablet by ity o f tablet 00:00: mouth (four) Medical times Branch daily as needed (muscle spasm, low back pain). For low back pain, muscle spasm. Alternate with cyclobenza manasa pregabalin Yes [id number] 1-2 cap po [facility] 75 mg 3-29 TID prn ity of capsule 00:00: low back [place] pain [facility] methocarbam Yes [id number] 750mg Take 1 [facility] oL 750 mg 3-29 tablet by ity o f tablet 00:00: mouth (four) Medical times Branch daily as needed (muscle spasm, low back pain). For low back pain, muscle spasm. Alternate with cyclobenza manasa pregabalin Yes [id number] 1-2 cap po [facility] 75 mg 3-29 TID prn ity of capsule 00:00: low back [place] pain [facility] methocarbam Yes [id number] 750mg Take 1 [facility] oL 750 mg 3-29 tablet by ity o f tablet 00:00: mouth (four) Medical times Branch daily as needed (muscle spasm, low back pain). For low back pain, muscle spasm. Alternate with cyclobenza manasa pregabalin Yes [id number] 1-2 cap po [facility] 75 mg 3-29 TID prn ity of capsule 00:00: low back [place] pain [facility] methocarbam Yes [id number] 750mg Take 1 [facility] oL 750 mg 3-29 tablet by ity o f tablet 00:00: mouth 4 [place] 00 (four) Medical times Branch daily as needed (muscle spasm, low back pain). For low back pain, muscle spasm. Alternate with cyclobenza manasa pregabalin No [id number] 1-2 cap po [facility] 75 mg 3-29 12-15 TID prn ity of capsule 00:00: 00:00 low back [place] 00 :00 pain Medical Branch methocarbam 2021- No [id number] 750mg Take 1 [facility] oL 750 mg 3-29 12-15 tablet by ity of tablet 00:00: 00:00 mouth 4 [place] 00 :00 (four) Medical times Branch daily as needed (muscle spasm, low back pain). For low back pain, muscle spasm. Alternate with cyclobenza manasa pregabalin No [id number] 1-2 cap po [facility] 75 mg 3-29 12-15 TID prn ity of capsule 00:00: 00:00 low back [place] 00 :00 pain Medical [facility] methocarbam 2021- No [id number] 750mg Take 1 [facility] oL 750 mg 3-29 12-15 tablet by ity of tablet 00:00: 00:00 mouth 4 [place] 00 :00 (four) Medical times Branch daily as needed (muscle spasm, low back pain). For low back pain, muscle spasm. Alternate with cyclobenza [facility]asa ondansetron 2020-06 Yes [id number] 4mg Take 1 [facility] 4 mg 1-03 tablet by ity of disintegrat 00:00: mouth [place] ing tablet 00 every 4 Medica l (four) Branch hours as needed for Nausea and Vomiting (N/V). ondansetron 2020-06 Yes [id number] 4mg Take 1 [facility] 4 mg 1-03 tablet by ity of disintegrat 00:00: mouth [place] ing tablet 00 every 4 Medica l (four) Branch hours as needed for Nausea and Vomiting (N/V). ondansetron 2020-06 Yes [id number] 4mg Take 1 [facility] 4 mg 1-03 tablet by ity of disintegrat 00:00: mouth [place] ing tablet 00 every 4 Medica l (four) Branch hours as needed for Nausea and Vomiting (N/V). ondansetron 2020-06 Yes [id number] 4mg Take 1 [facility] 4 mg 1-03 tablet by ity of disintegrat 00:00: mouth [place] ing tablet 00 every 4 Medica l (four) Branch hours as needed for Nausea and Vomiting (N/V). ondansetron 2020-06 Yes [id number] 4mg Take 1 [facility] 4 mg 1-03 tablet by ity of disintegrat 00:00: mouth [place] ing tablet 00 every 4 Medica l (four) Branch hours as needed for Nausea and Vomiting (N/V). ondansetron 2020-06 Yes [id number] 4mg Take 1 [facility] 4 mg 1-03 tablet by ity of disintegrat 00:00: mouth [place] ing tablet 00 every 4 Medica l (four) Branch hours as needed for Nausea and Vomiting (N/V). ondansetron 2020-06 Yes [id number] 4mg Take 1 [facility] 4 mg 1-03 tablet by ity of disintegrat 00:00: mouth [place] ing tablet 00 every 4 Medica l (four) Branch hours as needed for Nausea and Vomiting (N/V). ondansetron 2020-06 Yes [id number] 4mg Take 1 [facility] 4 mg 1-03 tablet by ity of disintegrat 00:00: mouth [place] ing tablet 00 every 4 Medica l (four) Branch hours as needed for Nausea and Vomiting (N/V). ondansetron 2020-06 Yes [id number] 4mg Take 1 [facility] 4 mg 1-03 tablet by ity of disintegrat 00:00: mouth [place] ing tablet 00 every 4 Medica l (four) Branch hours as needed for Nausea and Vomiting (N/V). ondansetron 2020-06 Yes [id number] 4mg Take 1 [facility] 4 mg 1-03 tablet by ity of disintegrat 00:00: mouth [place] ing tablet 00 every 4 Medica l (four) Branch hours as needed for Nausea and Vomiting (N/V). ondansetron 2020-06 Yes [id number] 4mg Take 1 [facility] 4 mg 1-03 tablet by ity of disintegrat 00:00: mouth [place] ing tablet 00 every 4 Medica l (four) Branch hours as needed for Nausea and Vomiting (N/V). ondansetron 2020-06 Yes [id number] 4mg Take 1 [facility] 4 mg 1-03 tablet by ity of disintegrat 00:00: mouth [place] ing tablet 00 every 4 [facility] ([facility] Branch hours as needed for Nausea and Vomiting (N/V). ondansetron 2020-06 Yes [id number] 4mg Take 1 [facility] 4 [facility]-03 tablet by [facility] disintegrat 00:00: mouth [place] ing tablet 00 every 4 [facility] (four) Branch hours as needed for Nausea and Vomiting (N/V). ondansetron 2020-06 Yes [id number] 4mg Take 1 [facility] 4 mg 1-03 tablet by [facility] disintegrat 00:00: mouth [place] ing tablet 00 every 4 [facility] (four) Branch hours as needed for Nausea and Vomiting (N/V). ondansetron 2020-06 Yes [id number] 4mg Take 1 [facility] 4 mg 1-03 tablet by [facility] disintegrat 00:00: mouth [place] ing tablet 00 every 4 [facility] (four) Branch hours as needed for Nausea and Vomiting (N/V). ondansetron 2020-06 Yes [id number] 4mg Take 1 [facility] 4 mg 1-03 tablet by [facility] disintegrat 00:00: mouth [place] ing tablet 00 every 4 [facility] (four) Branch hours as needed for Nausea and Vomiting (N/V). ondansetron 2020-06 Yes [id number] 4mg Take 1 [facility] 4 mg 1-03 tablet by [facility] of disintegrat 00:00: mouth [place] ing tablet 00 every 4 [facility] (four) Branch hours as needed for Nausea and Vomiting (N/V). ondansetron 2020-06 Yes [id number] 4mg Take 1 [facility] 4 mg 1-03 tablet by [facility] of disintegrat 00:00: mouth [place] ing tablet 00 every 4 [facility] (four) Branch hours as needed for Nausea and Vomiting (N/V). ondansetron 2020-06 Yes [id number] 4mg Take 1 [facility] 4 mg 1-03 tablet by [facility] disintegrat 00:00: mouth [place] ing tablet 00 every 4 [facility] (four) Branch hours as needed for Nausea and Vomiting (N/V). ondansetron 2020-06 Yes [id number] 4mg Take 1 [facility] 4 mg 1-03 tablet by [facility] of disintegrat 00:00: mouth [place] ing tablet 00 every 4 [facility] (four) Branch hours as needed for Nausea and Vomiting (N/V). ondansetron 2020-06 Yes [id number] 4mg Take 1 [facility] 4 mg 1-03 tablet by [facility] of disintegrat 00:00: mouth [place] ing tablet 00 every 4 [facility] (four) Branch hours as needed for Nausea and Vomiting (N/V). ondansetron 2020-06 Yes [id number] 4mg Take 1 [facility] 4 mg 1-03 tablet by [facility] of disintegrat 00:00: mouth [place] ing tablet 00 every 4 [facility] (four) Branch hours as needed for Nausea and Vomiting (N/V). ondansetron 2020-06 Yes [id number] 4mg Take 1 [facility] 4 mg 1-03 tablet by [facility] disintegrat 00:00: mouth [place] ing tablet 00 every 4 [facility] (four) Branch hours as needed for Nausea and Vomiting (N/V). ondansetron 2020-06 Yes [id number] 4mg Take 1 [facility] 4 mg 1-03 tablet by [facility] disintegrat 00:00: mouth [place] ing tablet 00 every 4 [facility] (four) Branch hours as needed for Nausea and Vomiting (N/V). ondansetron 2020-06 Yes [id number] 4mg Take 1 [facility] 4 mg 1-03 tablet by [facility] of disintegrat 00:00: mouth [place] ing tablet 00 every 4 [facility] (four) Branch hours as needed for Nausea and Vomiting (N/V). ondansetron 2020-06 Yes [id number] 4mg Take 1 [facility] 4 mg 1-03 tablet by [facility] of disintegrat 00:00: mouth [place] ing tablet 00 every 4 [facility] (four) Branch hours as needed for Nausea and Vomiting (N/V). ondansetron 2020-06 Yes [id number] 4mg Take 1 [facility] 4 mg 1-03 tablet by [facility] of disintegrat 00:00: mouth [place] ing tablet 00 every 4 [facility] (four) Branch hours as needed for Nausea and Vomiting (N/V). ondansetron 2020-06 Yes [id number] 4mg Take 1 [facility] 4 mg 1-03 tablet by [facility] disintegrat 00:00: mouth [place] ing tablet 00 every 4 [facility] (four) Branch hours as needed for Nausea and Vomiting (N/V). ondansetron 2020-06 Yes [id number] 4mg Take 1 [facility] 4 mg 1-03 tablet by [facility] of disintegrat 00:00: mouth [place] ing tablet 00 every 4 [facility] (four) Branch hours as needed for Nausea and Vomiting (N/V). ondansetron 2020-06 Yes [id number] 4mg Take 1 [facility] 4 mg 1-03 tablet by [facility] disintegrat 00:00: mouth [place] ing tablet 00 every 4 [facility] (four) Branch hours as needed for Nausea and Vomiting (N/V). ondansetron 2020-06 Yes [id number] 4mg Take 1 [facility] 4 mg 1-03 tablet by [facility] of disintegrat 00:00: mouth [place] ing tablet 00 every 4 [facility] (four) Branch hours as needed for Nausea and Vomiting (N/V). ondansetron 2020-06 Yes [id number] 4mg Take 1 [facility] 4 mg 1-03 tablet by [facility] of disintegrat 00:00: mouth [place] ing tablet 00 every 4 [facility] (four) Branch hours as needed for Nausea and Vomiting (N/V). ondansetron 2020-06 Yes [id number] 4mg Take 1 [facility] 4 mg 1-03 tablet by [facility] of disintegrat 00:00: mouth [place] ing tablet 00 every 4 [facility] (four) Branch hours as needed for Nausea and Vomiting (N/V). ondansetron 2020-06 Yes [id number] 4mg Take 1 [facility] 4 mg 1-03 tablet by [facility] of disintegrat 00:00: mouth [place] ing tablet 00 every 4 [facility] (four) Branch hours as needed for Nausea and Vomiting (N/V). ondansetron 2020-06 Yes [id number] 4mg Take 1 [facility] 4 mg 1-03 tablet by [facility] of disintegrat 00:00: mouth [place] ing tablet 00 every 4 [facility] (four) Branch hours as needed for Nausea and Vomiting (N/V). ondansetron 2020-06 Yes [id number] 4mg Take 1 [facility] 4 mg 1-03 tablet by [facility] of disintegrat 00:00: mouth [place] ing tablet 00 every 4 [facility] (four) Branch hours as needed for Nausea and Vomiting (N/V). ondansetron 2020-06 Yes [id number] 4mg Take 1 [facility] 4 mg 1-03 tablet by [facility] of disintegrat 00:00: mouth [place] ing tablet 00 every 4 [facility] (four) Branch hours as needed for Nausea and Vomiting (N/V). ondansetron 2020-06 Yes [id number] 4mg Take 1 [facility] 4 mg 1-03 tablet by [facility] of disintegrat 00:00: mouth [place] ing tablet 00 every 4 [facility] (four) Branch hours as needed for Nausea and Vomiting (N/V). ondansetron 2020-06 Yes [id number] 4mg Take 1 [facility] 4 mg 1-03 tablet by [facility] of disintegrat 00:00: mouth [place] ing tablet 00 every 4 [facility] (four) Branch hours as needed for Nausea and Vomiting (N/V). ondansetron 2020-06 Yes [id number] 4mg Take 1 [facility] 4 mg 1-03 tablet by [facility] of disintegrat 00:00: mouth [place] ing tablet 00 every 4 [facility] (four) Branch hours as needed for Nausea and Vomiting (N/V). ondansetron 2020-06 Yes [id number] 4mg Take 1 [facility] 4 mg 1-03 tablet by [facility] of disintegrat 00:00: mouth [place] ing tablet 00 every 4 [facility] (four) Branch hours as needed for Nausea and Vomiting (N/V). ondansetron 2020-06 No [id number] 4mg Take 1 [facility] 4 mg 1-03 02-08 tablet by [facility] dis[facility]at 00:00: 00:00 [facility] [place] tablet 00 :00 every 4 [facility] (four) Branch hours as needed for Nausea and Vomiting (N/V). ondansetron 2020-06 No [id number] 4mg Take 1 [facility] 4 mg 1-03 02-08 tablet by [facility] dis[facility]at 00:00: 00:00 [facility] [place] tablet 00 :00 every 4 [facility] (four) Branch hours as needed for Nausea and Vomiting (N/V). ondansetron 2020-06 No [id number] 4mg Take 1 [facility] 4 mg 1-03 02-08 tablet by [facility] disintegrat 00:00: 00:00 [facility] [place] tablet 00 :00 every 4 [facility] (four) Branch hours as needed for Nausea and Vomiting (N/V). magnesium 2021-0 Yes [id number] 400mg Take 1 [facility] oxide 400 9-20 tablet by ity o f mg (241.3 00:00: mouth [place] mg 00 daily. Medical magnesium) Branch tablet magnesium 2020-0 Yes [id number] 400mg Take 1 [facility] oxide 400 9-20 tablet by ity o f mg (241.3 00:00: mouth [place] mg 00 daily. Medical magnesium) Branch tablet magnesium 2020-0 Yes [id number] 400mg Take 1 [facility] oxide 400 9-20 tablet by ity o f mg (241.3 00:00: mouth [place] mg 00 daily. Medical magnesium) Branch tablet magnesium 2020-0 Yes [id number] 400mg Take 1 [facility] oxide 400 9-20 tablet by ity o f mg (241.3 00:00: mouth [place] mg 00 daily. Medical magnesium) Branch tablet magnesium 2020-0 Yes [id number] 400mg Take 1 [facility] oxide 400 9-20 tablet by ity o f mg (241.3 00:00: mouth [place] mg 00 daily. Medical magnesium) Branch tablet magnesium 2020-0 Yes [id number] 400mg Take 1 [facility] oxide 400 9-20 tablet by ity o f mg (241.3 00:00: mouth [place] mg 00 daily. Medical magnesium) Branch tablet magnesium 2020-0 Yes [id number] 400mg Take 1 [facility] oxide 400 9-20 tablet by ity o f mg (241.3 00:00: mouth [place] mg 00 daily. Medical magnesium) Branch tablet magnesium 2020-0 Yes [id number] 400mg Take 1 [facility] oxide 400 9-20 tablet by ity o f mg (241.3 00:00: mouth [place] mg 00 daily. Medical magnesium) Branch tablet magnesium 2020-0 Yes [id number] 400mg Take 1 [facility] oxide 400 9-20 tablet by ity o f mg (241.3 00:00: mouth [place] mg 00 daily. Medical magnesium) Branch tablet magnesium 2020-0 Yes [id number] 400mg Take 1 [facility] oxide 400 9-20 tablet by ity o f mg (241.3 00:00: mouth [place] mg 00 daily. Medical magnesium) Branch tablet magnesium 2020-0 Yes [id number] 400mg Take 1 [facility] oxide 400 9-20 tablet by ity o f mg (241.3 00:00: mouth [place] mg 00 daily. Medical magnesium) Branch tablet magnesium 2020-0 Yes [id number] 400mg Take 1 [facility] oxide 400 9-20 tablet by ity o f mg (241.3 00:00: mouth [place] mg 00 daily. Medical magnesium) Branch tablet magnesium 2020-0 Yes [id number] 400mg Take 1 [facility] oxide 400 9-20 tablet by ity o f mg (241.3 00:00: mouth [place] mg 00 daily. Medical magnesium) Branch tablet magnesium 2020-0 Yes [id number] 400mg Take 1 [facility] oxide 400 9-20 tablet by ity o f mg (241.3 00:00: mouth [place] mg 00 daily. Medical magnesium) Branch tablet magnesium 2020-0 Yes [id number] 400mg Take 1 [facility] oxide 400 9-20 tablet by ity o f mg (241.3 00:00: mouth [place] mg 00 daily. Medical magnesium) Branch tablet magnesium 2020-0 Yes [id number] 400mg Take 1 [facility] oxide 400 9-20 tablet by ity o f mg (241.3 00:00: mouth [place] mg 00 daily. Medical magnesium) Branch tablet magnesium 2020-0 Yes [id number] 400mg Take 1 [facility] oxide 400 9-20 tablet by ity o f mg (241.3 00:00: mouth [place] mg 00 daily. Medical magnesium) Branch tablet magnesium 2020-0 Yes [id number] 400mg Take 1 [facility] oxide 400 9-20 tablet by ity o f mg (241.3 00:00: mouth [place] mg 00 daily. Medical magnesium) Branch tablet magnesium 2020-0 Yes [id number] 400mg Take 1 [facility] oxide 400 9-20 tablet by ity o f mg (241.3 00:00: mouth [place] mg 00 daily. Medical magnesium) Branch tablet magnesium 2020-0 Yes [id number] 400mg Take 1 [facility] oxide 400 9-20 tablet by ity o f mg (241.3 00:00: mouth [place] mg 00 daily. Medical magnesium) Branch tablet magnesium 2020-0 Yes [id number] 400mg Take 1 [facility] oxide 400 9-20 tablet by ity o f mg (241.3 00:00: mouth [place] mg 00 daily. Medical magnesium) Branch tablet magnesium 2020-0 Yes [id number] 400mg Take 1 [facility] oxide 400 9-20 tablet by ity o f mg (241.3 00:00: mouth [place] mg 00 daily. Medical magnesium) Branch tablet magnesium 2020-0 Yes [id number] 400mg Take 1 [facility] oxide 400 9-20 tablet by ity o f mg (241.3 00:00: mouth [place] mg 00 daily. Medical magnesium) Branch tablet magnesium 2020-0 Yes [id number] 400mg Take 1 [facility] oxide 400 9-20 tablet by ity o f mg (241.3 00:00: mouth [place] mg 00 daily. Medical magnesium) Branch tablet magnesium 2020-0 Yes [id number] 400mg Take 1 [facility] oxide 400 9-20 tablet by ity o f mg (241.3 00:00: mouth [place] mg 00 daily. Medical magnesium) Branch tablet magnesium 2020-0 Yes [id number] 400mg Take 1 [facility] oxide 400 9-20 tablet by ity o f mg (241.3 00:00: mouth [place] mg 00 daily. Medical magnesium) Branch tablet magnesium 2020-0 Yes [id number] 400mg Take 1 [facility] oxide 400 9-20 tablet by ity o f mg (241.3 00:00: mouth [place] mg 00 daily. Medical magnesium) Branch tablet magnesium 2020-0 Yes [id number] 400mg Take 1 [facility] oxide 400 9-20 tablet by ity o f mg (241.3 00:00: mouth [place] mg 00 daily. Medical magnesium) Branch tablet magnesium 2020-0 Yes [id number] 400mg Take 1 [facility] oxide 400 9-20 tablet by ity o f mg (241.3 00:00: mouth [place] mg 00 daily. Medical magnesium) Branch tablet magnesium 2020-0 Yes [id number] 400mg Take 1 [facility] oxide 400 9-20 tablet by ity o f mg (241.3 00:00: mouth [place] mg 00 daily. Medical magnesium) Branch tablet magnesium 2020-0 Yes [id number] 400mg Take 1 [facility] oxide 400 9-20 tablet by ity o f mg (241.3 00:00: mouth [place] mg 00 daily. Medical magnesium) Branch tablet magnesium 2020-0 Yes [id number] 400mg Take 1 [facility] oxide 400 9-20 tablet by ity o f mg (241.3 00:00: mouth [place] mg 00 daily. Medical magnesium) Branch tablet magnesium 2020-0 Yes [id number] 400mg Take 1 [facility] oxide 400 9-20 tablet by ity o f mg (241.3 00:00: mouth [place] mg 00 daily. Medical magnesium) Branch tablet magnesium 2020-0 Yes [id number] 400mg Take 1 [facility] oxide 400 9-20 tablet by ity o f mg (241.3 00:00: mouth [place] mg 00 daily. Medical magnesium) Branch tablet magnesium 2020-0 Yes [id number] 400mg Take 1 [facility] oxide 400 9-20 tablet by ity o f mg (241.3 00:00: mouth [place] mg 00 daily. Medical magnesium) Branch tablet magnesium 2020-0 Yes [id number] 400mg Take 1 [facility] oxide 400 9-20 tablet by ity o f mg (241.3 00:00: mouth [place] mg 00 daily. Medical magnesium) Branch tablet magnesium 2020-0 Yes [id number] 400mg Take 1 [facility] oxide 400 9-20 tablet by ity o f mg (241.3 00:00: mouth [place] mg 00 daily. Medical magnesium) Branch tablet magnesium 2020-0 Yes [id number] 400mg Take 1 [facility] oxide 400 9-20 tablet by ity o f mg (241.3 00:00: mouth [place] mg 00 daily. Medical magnesium) Branch tablet magnesium 2020-0 Yes [id number] 400mg Take 1 [facility] oxide 400 9-20 tablet by ity o f mg (241.3 00:00: mouth [place] mg 00 daily. Medical magnesium) Branch tablet magnesium 2020-0 Yes [id number] 400mg Take 1 [facility] oxide 400 9-20 tablet by ity o f mg (241.3 00:00: mouth [place] mg 00 daily. Medical magnesium) Branch tablet magnesium 2020-0 Yes [id number] 400mg Take 1 [facility] oxide 400 9-20 tablet by ity o f mg (241.3 00:00: mouth [place] mg 00 daily. Medical magnesium) Branch tablet magnesium 2020-0 Yes [id number] 400mg Take 1 [facility] oxide 400 9-20 tablet by ity o f mg (241.3 00:00: mouth [place] mg 00 daily. Medical magnesium) Branch tablet magnesium 2020-0 Yes [id number] 400mg Take 1 [facility] oxide 400 9-20 tablet by ity o f mg (241.3 00:00: mouth [place] mg 00 daily. Medical magnesium) Branch tablet magnesium 2020-0 Yes [id number] 400mg Take 1 [facility] oxide 400 9-20 tablet by ity o f mg (241.3 00:00: mouth [place] mg 00 daily. Medical magnesium) Branch tablet magnesium 2020-0 Yes [id number] 400mg Take 1 [facility] oxide 400 9-20 tablet by ity o f mg (241.3 00:00: mouth [place] mg 00 daily. Medical magnesium) Branch tablet magnesium 2020-0 Yes [id number] 400mg Take 1 [facility] oxide 400 9-20 tablet by ity o f mg (241.3 00:00: mouth [place] mg 00 daily. Medical magnesium) Branch tablet magnesium 2020-0 Yes [id number] 400mg Take 1 [facility] oxide 400 9-20 tablet by ity o f mg (241.3 00:00: mouth [place] mg 00 daily. Medical magnesium) Branch tablet magnesium 2020-0 Yes [id number] 400mg Take 1 [facility] oxide 400 9-20 tablet by ity o f mg (241.3 00:00: mouth [place] mg 00 daily. Medical magnesium) Branch tablet magnesium 2020-0 Yes [id number] 400mg Take 1 [facility] oxide 400 9-20 tablet by ity o f mg (241.3 00:00: mouth [place] mg 00 daily. Medical magnesium) Branch tablet magnesium 2020-0 Yes [id number] 400mg Take 1 [facility] oxide 400 9-20 tablet by ity o f mg (241.3 00:00: mouth [place] mg 00 daily. Medical magnesium) Branch tablet magnesium 2020-0 Yes [id number] 400mg Take 1 [facility] oxide 400 9-20 tablet by ity o f mg (241.3 00:00: mouth [place] mg 00 daily. Medical magnesium) Branch tablet magnesium 2020-0 Yes [id number] 400mg Take 1 [facility] oxide 400 9-20 tablet by ity o f mg (241.3 00:00: mouth [place] mg 00 daily. Medical magnesium) Branch tablet magnesium 2020-0 Yes [id number] 400mg Take 1 [facility] oxide 400 9-20 tablet by ity o f mg (241.3 00:00: mouth [place] mg 00 daily. Medical magnesium) Branch tablet magnesium 2020-0 Yes [id number] 400mg Take 1 [facility] oxide 400 9-20 tablet by ity o f mg (241.3 00:00: mouth [place] mg 00 daily. Medical magnesium) Branch tablet magnesium 2020-0 Yes [id number] 400mg Take 1 [facility] oxide 400 9-20 tablet by ity o f mg (241.3 00:00: mouth [place] mg 00 daily. Medical magnesium) Branch tablet magnesium 2020-0 Yes [id number] 400mg Take 1 [facility] oxide 400 9-20 tablet by ity o f mg (241.3 00:00: mouth [place] mg 00 daily. Medical magnesium) Branch tablet magnesium 2020-0 Yes [id number] 400mg Take 1 [facility] oxide 400 9-20 tablet by ity o f mg (241.3 00:00: mouth [place] mg 00 daily. Medical magnesium) Branch tablet magnesium 2020-0 Yes [id number] 400mg Take 1 [facility] oxide 400 9-20 tablet by ity o f mg (241.3 00:00: mouth [place] mg 00 daily. Medical magnesium) Branch tablet magnesium 2020-0 Yes [id number] 400mg Take 1 [facility] oxide 400 9-20 tablet by ity o f mg (241.3 00:00: mouth [place] mg 00 daily. Medical magnesium) Branch tablet magnesium 2020-0 Yes [id number] 400mg Take 1 [facility] oxide 400 9-20 tablet by ity o f mg (241.3 00:00: mouth [place] mg 00 daily. Medical magnesium) Branch tablet magnesium 2020-0 Yes [id number] 400mg Take 1 [facility] oxide 400 9-20 tablet by ity o f mg (241.3 00:00: mouth [place] mg 00 daily. Medical magnesium) Branch tablet magnesium 2020-0 Yes [id number] 400mg Take 1 [facility] oxide 400 9-20 tablet by ity o f mg (241.3 00:00: mouth [place] mg 00 daily. Medical magnesium) Branch tablet magnesium 2020-0 Yes [id number] 400mg Take 1 [facility] oxide 400 9-20 tablet by ity o f mg (241.3 00:00: mouth [place] mg 00 daily. Medical magnesium) Branch tablet magnesium 2020-0 Yes [id number] 400mg Take 1 [facility] oxide 400 9-20 tablet by ity o f mg (241.3 00:00: mouth [place] mg 00 daily. Medical magnesium) Branch tablet magnesium 2020-0 Yes [id number] 400mg Take 1 [facility] oxide 400 9-20 tablet by ity o f mg (241.3 00:00: mouth [place] mg 00 daily. Medical magnesium) Branch tablet magnesium 2020-0 Yes [id number] 400mg Take 1 [facility] oxide 400 9-20 tablet by ity o f mg (241.3 00:00: mouth [place] mg 00 daily. Medical magnesium) Branch tablet magnesium 2020-0 Yes [id number] 400mg Take 1 [facility] oxide 400 9-20 tablet by ity o f mg (241.3 00:00: mouth [place] mg 00 daily. Medical magnesium) Branch tablet magnesium 2020-0 Yes [id number] 400mg Take 1 [facility] oxide 400 9-20 tablet by ity o f mg (241.3 00:00: mouth [place] mg 00 daily. Medical magnesium) Branch tablet magnesium 2020-0 Yes [id number] 400mg Take 1 [facility] oxide 400 9-20 tablet by ity o f mg (241.3 00:00: mouth [place] mg 00 daily. Medical magnesium) Branch tablet magnesium 2020-0 Yes [id number] 400mg Take 1 [facility] oxide 400 9-20 tablet by ity o f mg (241.3 00:00: mouth [place] mg 00 daily. Medical magnesium) Branch tablet magnesium 2020-0 Yes [id number] 400mg Take 1 [facility] oxide 400 9-20 tablet by ity o f mg (241.3 00:00: mouth [place] mg 00 daily. Medical magnesium) Branch tablet magnesium 2020-0 Yes [id number] 400mg Take 1 [facility] oxide 400 9-20 tablet by ity o f mg (241.3 00:00: mouth [place] mg 00 daily. Medical magnesium) Branch tablet magnesium 2020-0 Yes [id number] 400mg Take 1 [facility] oxide 400 9-20 tablet by ity o f mg (241.3 00:00: mouth [place] mg 00 daily. Medical magnesium) Branch tablet magnesium 2020-0 Yes [id number] 400mg Take 1 [facility] oxide 400 9-20 tablet by ity o f mg (241.3 00:00: mouth [place] mg 00 daily. Medical magnesium) Branch tablet magnesium 2020-0 Yes [id number] 400mg Take 1 [facility] oxide 400 9-20 tablet by ity o f mg (241.3 00:00: mouth [place] mg 00 daily. Medical magnesium) Branch tablet magnesium 2020-0 Yes [id number] 400mg Take 1 [facility] oxide 400 9-20 tablet by ity o f mg (241.3 00:00: mouth [place] mg 00 daily. Medical magnesium) Branch tablet magnesium 2020-0 Yes [id number] 400mg Take 1 [facility] oxide 400 9-20 tablet by ity o f mg (241.3 00:00: mouth [place] mg 00 daily. Medical magnesium) Branch tablet magnesium 2020-0 Yes [id number] 400mg Take 1 [facility] oxide 400 9-20 tablet by ity o f mg (241.3 00:00: mouth [place] mg 00 daily. Medical magnesium) Branch tablet magnesium 2020-0 Yes [id number] 400mg Take 1 [facility] oxide 400 9-20 tablet by ity o f mg (241.3 00:00: mouth [place] mg 00 daily. Medical magnesium) Branch tablet magnesium 2020-0 Yes [id number] 400mg Take 1 [facility] oxide 400 9-20 tablet by ity o f mg (241.3 00:00: mouth [place] mg 00 daily. Medical magnesium) Branch tablet magnesium 2020-0 Yes [id number] 400mg Take 1 [facility] oxide 400 9-20 tablet by ity o f mg (241.3 00:00: mouth [place] mg 00 daily. Medical magnesium) Branch tablet magnesium 2020-0 Yes [id number] 400mg Take 1 [facility] oxide 400 9-20 tablet by ity o f mg (241.3 00:00: mouth [place] mg 00 daily. Medical magnesium) Branch tablet magnesium 2020-0 Yes [id number] 400mg Take 1 [facility] oxide 400 9-20 tablet by ity o f mg (241.3 00:00: mouth [place] mg 00 daily. Medical magnesium) Branch tablet magnesium 2020-0 Yes [id number] 400mg Take 1 [facility] oxide 400 9-20 tablet by ity o f mg (241.3 00:00: mouth [place] mg 00 daily. Medical magnesium) Branch tablet magnesium 2020-0 Yes [id number] 400mg Take 1 [facility] oxide 400 9-20 tablet by ity o f mg (241.3 00:00: mouth [place] mg 00 daily. Medical magnesium) Branch tablet magnesium 2020-0 Yes [id number] 400mg Take 1 [facility] oxide 400 9-20 tablet by ity o f mg (241.3 00:00: mouth [place] mg 00 daily. Medical magnesium) Branch tablet magnesium 2020-0 Yes [id number] 400mg Take 1 [facility] oxide 400 9-20 tablet by ity o f mg (241.3 00:00: mouth [place] mg 00 daily. Medical magnesium) Branch tablet magnesium 2020-0 Yes [id number] 400mg Take 1 [facility] oxide 400 9-20 tablet by ity o f mg (241.3 00:00: mouth [place] mg 00 daily. Medical magnesium) Branch tablet magnesium 2020-0 Yes [id number] 400mg Take 1 [facility] oxide 400 9-20 tablet by ity o f mg (241.3 00:00: mouth [place] mg 00 daily. Medical magnesium) Branch tablet magnesium 2020-0 Yes [id number] 400mg Take 1 [facility] oxide 400 9-20 tablet by ity o f mg (241.3 00:00: mouth [place] mg 00 daily. Medical magnesium) Branch tablet magnesium 2020-0 Yes [id number] 400mg Take 1 [facility] oxide 400 9-20 tablet by ity o f mg (241.3 00:00: mouth [place] mg 00 daily. Medical magnesium) Branch tablet magnesium 0 Yes [id number] 400mg Take 1 [facility] oxide 400 9-20 tablet by ity o f mg (241.3 00:00: mouth [place] mg 00 daily. Medical magnesium) Branch tablet magnesium Yes [id number] 400mg Take 1 [facility] oxide 400 9-20 tablet by ity o f mg (241.3 00:00: mouth [place] mg 00 daily. Medical magnesium) Branch tablet erythromyci Yes [id number] .5[in_u Place 0.5 [facility] n 5 mg/gram 4-02 s] Inches in ity of (0.5 %) 00:00: both eyes [place] ophthalmic 00 4 (four) Medic al ointment times Branch daily. erythromyci Yes [id number] .5[in_u Place 0.5 [facility] n 5 mg/gram 4-02 s] Inches in ity of (0.5 %) 00:00: both eyes [place] ophthalmic 00 4 (four) Medic al ointment times Branch daily. erythromyci 2020- Yes [id number] .5[in_u Place 0.5 [facility] n 5 mg/gram 4-02 s] Inches in ity of (0.5 %) 00:00: both eyes [place] ophthalmic 00 4 (four) Medic al ointment times Branch daily. erythromyci 2020- Yes [id number] .5[in_u Place 0.5 [facility] n 5 mg/gram 4-02 s] Inches in ity of (0.5 %) 00:00: both eyes [place] ophthalmic 00 4 (four) Medic al ointment times Branch daily. erythromyci 2020- Yes [id number] .5[in_u Place 0.5 [facility] n 5 mg/gram 4-02 s] Inches in ity of (0.5 %) 00:00: both eyes [place] ophthalmic 00 4 (four) Medic al ointment times Branch daily. erythromyci Yes [id number] .5[in_u Place 0.5 [facility] n 5 mg/gram 4-02 s] Inches in ity of (0.5 %) 00:00: both eyes [place] ophthalmic 00 4 (four) Medic al ointment times Branch daily. erythromyci Yes [id number] .5[in_u Place 0.5 [facility] n 5 mg/gram 4-02 s] Inches in ity of (0.5 %) 00:00: both eyes [place] ophthalmic 00 4 (four) Medic al ointment times Branch daily. erythromyci Yes [id number] .5[in_u Place 0.5 [facility] n 5 mg/gram 4-02 s] Inches in ity of (0.5 %) 00:00: both eyes [place] ophthalmic 00 4 (four) Medic al ointment times Branch daily. erythromyci Yes [id number] .5[in_u Place 0.5 [facility] n 5 mg/gram 4-02 s] Inches in ity of (0.5 %) 00:00: both eyes [place] ophthalmic 00 4 (four) Medic al ointment times Branch daily. erythromyci Yes [id number] .5[in_u Place 0.5 [facility] n 5 mg/gram 4-02 s] Inches in ity of (0.5 %) 00:00: both eyes [place] ophthalmic 00 4 (four) Medic al ointment times Branch daily. erythromyci Yes [id number] .5[in_u Place 0.5 [facility] n 5 mg/gram 4-02 s] Inches in ity of (0.5 %) 00:00: both eyes [place] ophthalmic 00 4 (four) Medic al ointment times Branch daily. erythromyci Yes [id number] .5[in_u Place 0.5 [facility] n 5 mg/gram 4-02 s] Inches in ity of (0.5 %) 00:00: both eyes [place] ophthalmic 00 4 (four) Medic al ointment times Branch daily. erythromyci 2020- Yes [id number] .5[in_u Place 0.5 [facility] n 5 mg/gram 4-02 s] Inches in ity of (0.5 %) 00:00: both eyes [place] ophthalmic 00 4 (four) Medic al ointment times Branch daily. erythromyci 2020- Yes [id number] .5[in_u Place 0.5 [facility] n 5 mg/gram 4-02 s] Inches in ity of (0.5 %) 00:00: both eyes [place] ophthalmic 00 4 (four) Medic al ointment times Branch daily. erythromyci Yes [id number] .5[in_u Place 0.5 [facility] n 5 mg/gram 4-02 s] Inches in ity of (0.5 %) 00:00: both eyes [place] [facility] 00 4 (four) Medic al ointment times Branch daily. erythromyci Yes [id number] .5[in_u Place 0.5 [facility] n 5 mg/gram 4-02 s] Inches in ity of (0.5 %) 00:00: both eyes [place] [facility] 00 4 (four) Medic al ointment times Branch daily. erythromyci Yes [id number] .5[in_u Place 0.5 [facility] n 5 mg/gram 4-02 s] Inches in ity of (0.5 %) 00:00: both eyes [place] [facility] 00 4 (four) Medic al ointment times Branch daily. erythromyci 2020- Yes [id number] .5[in_u Place 0.5 [facility] n 5 mg/gram 4-02 s] Inches in ity of (0.5 %) 00:00: both eyes [place] [facility] 00 4 (four) Medic al ointment times Branch daily. erythromyci Yes [id number] .5[in_u Place 0.5 [facility] n 5 mg/gram 4-02 s] Inches in ity of (0.5 %) 00:00: both eyes [place] [facility] 00 4 (four) Medic al ointment times Branch daily. erythromyci 2020-0 Yes [id number] .5[in_u Place 0.5 [facility] n 5 mg/gram 4-02 s] Inches in ity of (0.5 %) 00:00: both eyes [place] [facility] 00 4 (four) Medic al ointment times Branch daily. erythromyci Yes [id number] .5[in_u Place 0.5 [facility] n 5 mg/gram 4-02 s] Inches in ity of (0.5 %) 00:00: both eyes [place] [facility] 00 4 (four) Medic al ointment times Branch daily. erythromyci Yes [id number] .5[in_u Place 0.5 [facility] n 5 mg/gram 4-02 s] Inches in ity of (0.5 %) 00:00: both eyes [place] [facility] 00 4 (four) Medic al ointment times Branch daily. erythromyci Yes [id number] .5[in_u Place 0.5 [facility] n 5 mg/gram 4-02 s] Inches in ity of (0.5 %) 00:00: both eyes [place] [facility] 00 4 (four) Medic al ointment times Branch daily. erythromyci Yes [id number] .5[in_u Place 0.5 [facility] n 5 mg/gram 4-02 s] Inches in ity of (0.5 %) 00:00: both eyes [place] [facility] 00 4 (four) Medic al ointment times Branch daily. erythromyci Yes [id number] .5[in_u Place 0.5 [facility] n 5 mg/gram 4-02 s] Inches in ity of (0.5 %) 00:00: both eyes [place] [facility] 00 4 (four) Medic al ointment times Branch daily. erythromyci Yes [id number] .5[in_u Place 0.5 [facility] n 5 mg/gram 4-02 s] Inches in ity of (0.5 %) 00:00: both eyes [place] [facility] 00 4 (four) Medic al ointment times Branch daily. erythromyci 2020- Yes [id number] .5[in_u Place 0.5 [facility] n 5 mg/gram 4-02 s] Inches in ity of (0.5 %) 00:00: both eyes [place] [facility] 00 4 (four) Medic al ointment times Branch daily. erythromyci 2020- Yes [id number] .5[in_u Place 0.5 [facility] n 5 mg/gram 4-02 s] Inches in ity of (0.5 %) 00:00: both eyes [place] [facility] 00 4 (four) Medic al ointment times Branch daily. erythromyci 2020- Yes [id number] .5[in_u Place 0.5 [facility] n 5 mg/gram 4-02 s] Inches in ity of (0.5 %) 00:00: both eyes [place] [facility] 00 4 (four) Medic al ointment times Branch daily. erythromyci Yes [id number] .5[in_u Place 0.5 [facility] n 5 mg/gram 4-02 s] Inches in ity of (0.5 %) 00:00: both eyes [place] [facility] 00 4 (four) Medic al ointment times Branch daily. erythromyci Yes [id number] .5[in_u Place 0.5 [facility] n 5 mg/gram 4-02 s] Inches in ity of (0.5 %) 00:00: both eyes [place] [facility] 00 4 (four) Medic al ointment times Branch daily. erythromyci Yes [id number] .5[in_u Place 0.5 [facility] n 5 mg/gram 4-02 s] Inches in ity of (0.5 %) 00:00: both eyes [place] [facility] 00 4 (four) Medic al ointment times Branch daily. erythromyci 2020- Yes [id number] .5[in_u Place 0.5 [facility] n 5 mg/gram 4-02 s] Inches in ity of (0.5 %) 00:00: both eyes [place] [facility] 00 4 (four) Medic al ointment times Branch daily. erythromyci 2020- Yes [id number] .5[in_u Place 0.5 [facility] n 5 mg/gram 4-02 s] Inches in ity of (0.5 %) 00:00: both eyes [place] [facility] 00 4 (four) Medic al ointment times Branch daily. erythromyci 2020- Yes [id number] .5[in_u Place 0.5 [facility] n 5 mg/gram 4-02 s] Inches in ity of (0.5 %) 00:00: both eyes [place] [facility] 00 4 (four) Medic al ointment times Branch daily. erythromyci 2020- Yes [id number] .5[in_u Place 0.5 [facility] n 5 mg/gram 4-02 s] Inches in ity of (0.5 %) 00:00: both eyes [place] [facility] 00 4 (four) Medic al ointment times Branch daily. erythromyci 2020- Yes [id number] .5[in_u Place 0.5 [facility] n 5 mg/gram 4-02 s] Inches in ity of (0.5 %) 00:00: both eyes [place] [facility] 00 4 (four) Medic al ointment times Branch daily. erythromyci 2020- Yes [id number] .5[in_u Place 0.5 [facility] n 5 mg/gram 4-02 s] Inches in ity of (0.5 %) 00:00: both eyes [place] [facility] 00 4 (four) Medic al ointment times Branch daily. erythromyci 2020- Yes [id number] .5[in_u Place 0.5 [facility] n 5 mg/gram 4-02 s] Inches in ity of (0.5 %) 00:00: both eyes [place] [facility] 00 4 (four) Medic al ointment times Branch daily. erythromyci 2020- Yes [id number] .5[in_u Place 0.5 [facility] n 5 mg/gram 4-02 s] Inches in ity of (0.5 %) 00:00: both eyes [place] [facility] 00 4 (four) Medic al ointment times Branch daily. erythromyci 2020- Yes [id number] .5[in_u Place 0.5 [facility] n 5 mg/gram 4-02 s] Inches in ity of (0.5 %) 00:00: both eyes [place] [facility] 00 4 (four) Medic al ointment times Branch daily. erythromyci 2020- Yes [id number] .5[in_u Place 0.5 [facility] n 5 mg/gram 4-02 s] Inches in ity of (0.5 %) 00:00: both eyes [place] [facility] 00 4 (four) Medic al ointment times Branch daily. erythromyci 2020- Yes [id number] .5[in_u Place 0.5 [facility] n 5 mg/gram 4-02 s] Inches in ity of (0.5 %) 00:00: both eyes [place] [facility] 00 4 (four) Medic al ointment times Branch daily. erythromyci 2020- Yes [id number] .5[in_u Place 0.5 [facility] n 5 mg/gram 4-02 s] Inches in ity of (0.5 %) 00:00: both eyes [place] [facility] 00 4 (four) Medic al ointment times Branch daily. erythromyci Yes [id number] .5[in_u Place 0.5 [facility] n 5 mg/gram 4-02 s] Inches in ity of (0.5 %) 00:00: both eyes [place] [facility] 00 4 (four) Medic al ointment times Branch daily. erythromyci Yes [id number] .5[in_u Place 0.5 [facility] n 5 mg/gram 4-02 s] Inches in ity of (0.5 %) 00:00: both eyes [place] [facility] 00 4 (four) Medic al ointment times Branch daily. erythromyci 2020- Yes [id number] .5[in_u Place 0.5 [facility] n 5 mg/gram 4-02 s] Inches in ity of (0.5 %) 00:00: both eyes [place] [facility] 00 4 (four) Medic al ointment times Branch daily. erythromyci 2020-0 Yes [id number] .5[in_u Place 0.5 [facility] n 5 mg/gram 4-02 s] Inches in ity of (0.5 %) 00:00: both eyes [place] [facility] 00 4 (four) Medic al ointment times Branch daily. erythromyci 2020-0 Yes [id number] .5[in_u Place 0.5 [facility] n 5 mg/gram 4-02 s] Inches in ity of (0.5 %) 00:00: both eyes [place] [facility] 00 4 (four) Medic al ointment times Branch daily. erythromyci 2020- Yes [id number] .5[in_u Place 0.5 [facility] n 5 mg/gram 4-02 s] Inches in ity of (0.5 %) 00:00: both eyes [place] [facility] 00 4 (four) Medic al ointment times Branch daily. erythromyci 2020- Yes [id number] .5[in_u Place 0.5 [facility] n 5 mg/gram 4-02 s] Inches in ity of (0.5 %) 00:00: both eyes [place] [facility] 00 4 (four) Medic al ointment times Branch daily. erythromyci 2020- Yes [id number] .5[in_u Place 0.5 [facility] n 5 mg/gram 4-02 s] Inches in ity of (0.5 %) 00:00: both eyes [place] [facility] 00 4 (four) Medic al ointment times Branch daily. erythromyci 2020- Yes [id number] .5[in_u Place 0.5 [facility] n 5 mg/gram 4-02 s] Inches in ity of (0.5 %) 00:00: both eyes [place] [facility] 00 4 (four) Medic al ointment times Branch daily. erythromyci 2020- Yes [id number] .5[in_u Place 0.5 [facility] n 5 mg/gram 4-02 s] Inches in ity of (0.5 %) 00:00: both eyes [place] [facility] 00 4 (four) Medic al ointment times Branch daily. erythromyci 2020-0 Yes [id number] .5[in_u Place 0.5 [facility] n 5 mg/gram 4-02 s] Inches in ity of (0.5 %) 00:00: both eyes [place] [facility] 00 4 (four) Medic al ointment times Branch daily. erythromyci 2020- Yes [id number] .5[in_u Place 0.5 [facility] n 5 mg/gram 4-02 s] Inches in ity of (0.5 %) 00:00: both eyes [place] [facility] 00 4 (four) Medic al ointment times Branch daily. erythromyci 2020- Yes [id number] .5[in_u Place 0.5 [facility] n 5 mg/gram 4-02 s] Inches in ity of (0.5 %) 00:00: both eyes [place] [facility] 00 4 (four) Medic al ointment times Branch daily. erythromyci 2020- Yes [id number] .5[in_u Place 0.5 [facility] n 5 mg/gram 4-02 s] Inches in ity of (0.5 %) 00:00: both eyes [place] [facility] 00 4 (four) Medic al ointment times Branch daily. erythromyci Yes [id number] .5[in_u Place 0.5 [facility] n 5 mg/gram 4-02 s] Inches in ity of (0.5 %) 00:00: both eyes [place] [facility] 00 4 (four) Medic al ointment times Branch daily. erythromyci Yes [id number] .5[in_u Place 0.5 [facility] n 5 mg/gram 4-02 s] Inches in ity of (0.5 %) 00:00: both eyes [place] [facility] 00 4 (four) Medic al ointment times Branch daily. erythromyci Yes [id number] .5[in_u Place 0.5 [facility] n 5 mg/gram 4-02 s] Inches in ity of (0.5 %) 00:00: both eyes [place] [facility] 00 4 (four) Medic al ointment times Branch daily. erythromyci Yes [id number] .5[in_u Place 0.5 [facility] n 5 mg/gram 4-02 s] Inches in ity of (0.5 %) 00:00: both eyes [place] [facility] 00 4 (four) Medic al ointment times Branch daily. erythromyci Yes [id number] .5[in_u Place 0.5 [facility] n 5 mg/gram 4-02 s] Inches in ity of (0.5 %) 00:00: both eyes [place] [facility] 00 4 (four) Medic al ointment times Branch daily. erythromyci Yes [id number] .5[in_u Place 0.5 [facility] n 5 mg/gram 4-02 s] Inches in ity of (0.5 %) 00:00: both eyes [place] [facility] 00 4 (four) Medic al ointment times Branch daily. erythromyci Yes [id number] .5[in_u Place 0.5 [facility] n 5 mg/gram 4-02 s] Inches in ity of (0.5 %) 00:00: both eyes [place] [facility] 00 4 (four) Medic al ointment times Branch daily. erythromyci Yes [id number] .5[in_u Place 0.5 [facility] n 5 mg/gram 4-02 s] Inches in ity of (0.5 %) 00:00: both eyes [place] [facility] 00 4 (four) Medic al ointment times Branch daily. erythromyci Yes [id number] .5[in_u Place 0.5 [facility] n 5 mg/gram 4-02 s] Inches in ity of (0.5 %) 00:00: both eyes [place] [facility] 00 4 (four) Medic al ointment times Branch daily. erythromyci Yes [id number] .5[in_u Place 0.5 [facility] n 5 mg/gram 4-02 s] Inches in ity of (0.5 %) 00:00: both eyes [place] [facility] 00 4 (four) Medic al ointment times Branch daily. erythromyci Yes [id number] .5[in_u Place 0.5 [facility] n 5 mg/gram 4-02 s] Inches in ity of (0.5 %) 00:00: both eyes [place] [facility] 00 4 (four) Medic al ointment times Branch daily. erythromyci Yes [id number] .5[in_u Place 0.5 [facility] n 5 mg/gram 4-02 s] Inches in ity of (0.5 %) 00:00: both eyes [place] [facility] 00 4 (four) Medic al ointment times Branch daily. erythromyci Yes [id number] .5[in_u Place 0.5 [facility] n 5 mg/gram 4-02 s] Inches in ity of (0.5 %) 00:00: both eyes [place] [facility] 00 4 (four) Medic al ointment times Branch daily. erythromyci 2020- Yes [id number] .5[in_u Place 0.5 [facility] n 5 mg/gram 4-02 s] Inches in ity of (0.5 %) 00:00: both eyes [place] [facility] 00 4 (four) Medic al ointment times Branch daily. erythromyci Yes [id number] .5[in_u Place 0.5 [facility] n 5 mg/gram 4-02 s] Inches in ity of (0.5 %) 00:00: both eyes [place] [facility] 00 4 (four) Medic al ointment times Branch daily. erythromyci Yes [id number] .5[in_u Place 0.5 [facility] n 5 mg/gram 4-02 s] Inches in ity of (0.5 %) 00:00: both eyes [place] [facility] 00 4 (four) Medic al ointment times Branch daily. erythromyci Yes [id number] .5[in_u Place 0.5 [facility] n 5 mg/gram 4-02 s] Inches in ity of (0.5 %) 00:00: both eyes [place] [facility] 00 4 (four) Medic al ointment times Branch daily. erythromyci Yes [id number] .5[in_u Place 0.5 [facility] n 5 mg/gram 4-02 s] Inches in ity of (0.5 %) 00:00: both eyes [place] [facility] 00 4 (four) Medic al ointment times Branch daily. erythromyci Yes [id number] .5[in_u Place 0.5 [facility] n 5 mg/gram 4-02 s] Inches in ity of (0.5 %) 00:00: both eyes [place] [facility] 00 4 (four) Medic al ointment times Branch daily. erythromyci Yes [id number] .5[in_u Place 0.5 [facility] n 5 mg/gram 4-02 s] Inches in ity of (0.5 %) 00:00: both eyes [place] [facility] 00 4 (four) Medic al ointment times Branch daily. erythromyci Yes [id number] .5[in_u Place 0.5 [facility] n 5 mg/gram 4-02 s] Inches in ity of (0.5 %) 00:00: both eyes [place] [facility] 00 4 (four) Medic al ointment times Branch daily. erythromyci Yes [id number] .5[in_u Place 0.5 [facility] n 5 mg/gram 4-02 s] Inches in ity of (0.5 %) 00:00: both eyes [place] [facility] 00 4 (four) Medic al ointment times Branch daily. erythromyci Yes [id number] .5[in_u Place 0.5 [facility] n 5 mg/gram 4-02 s] Inches in ity of (0.5 %) 00:00: both eyes [place] [facility] 00 4 (four) Medic al ointment times Branch daily. erythromyci Yes [id number] .5[in_u Place 0.5 [facility] n 5 mg/gram 4-02 s] Inches in ity of (0.5 %) 00:00: both eyes [place] [facility] 00 4 (four) Medic al ointment times Branch daily. erythromyci Yes [id number] .5[in_u Place 0.5 [facility] n 5 mg/gram 4-02 s] Inches in ity of (0.5 %) 00:00: both eyes [place] [facility] 00 4 (four) Medic al ointment times Branch daily. erythromyci Yes [id number] .5[in_u Place 0.5 [facility] n 5 mg/gram 4-02 s] Inches in ity of (0.5 %) 00:00: both eyes [place] [facility] 00 4 (four) Medic al ointment times Branch daily. erythromyci Yes [id number] .5[in_u Place 0.5 [facility] n 5 mg/gram 4-02 s] Inches in ity of (0.5 %) 00:00: both eyes [place] [facility] 00 4 (four) Medic al ointment times Branch daily. erythromyci Yes [id number] .5[in_u Place 0.5 [facility] n 5 mg/gram 4-02 s] Inches in ity of (0.5 %) 00:00: both eyes [place] [facility] 00 4 (four) Medic al ointment times Branch daily. erythromyci Yes [id number] .5[in_u Place 0.5 [facility] n 5 mg/gram 4-02 s] Inches in ity of (0.5 %) 00:00: both eyes [place] [facility] 00 4 (four) Medic al ointment times Branch daily. budesonide- Yes [id number] 2{puff} Inhale 2 [facility] formoteroL 3-19 Puffs 2 ity of 160-4.5 00:00: (two) [place] mcg/actuati 00 times Medical on inhaler daily. [facility] budesonide- Yes [id number] 2{puff} Inhale 2 [facility] formoteroL 3-19 Puffs 2 ity of 160-4.5 00:00: (two) [place] mcg/actuati 00 times Medical on inhaler daily. [place] budesonide- Yes [id number] 2{puff} Inhale 2 [facility] formoteroL 3-19 Puffs 2 ity of 160-4.5 00:00: (two) [place] mcg/actuati 00 times Medical on inhaler daily. [place] budesonide- Yes [id number] 2{puff} Inhale 2 [facility] formoteroL 3-19 Puffs 2 ity of 160-4.5 00:00: (two) [place] mcg/actuati 00 times Medical on inhaler daily. [place] budesonide- Yes [id number] 2{puff} Inhale 2 [facility] formoteroL 3-19 Puffs 2 ity of 160-4.5 00:00: (two) [place] mcg/actuati 00 times Medical on inhaler daily. Branch budesonide- Yes [id number] 2{puff} Inhale 2 [facility] formoteroL 3-19 Puffs 2 ity of 160-4.5 00:00: (two) [place] mcg/actuati 00 times Medical on inhaler daily. [place] budesonide- Yes [id number] 2{puff} Inhale 2 [facility] formoteroL 3-19 Puffs 2 ity of 160-4.5 00:00: (two) [place] mcg/actuati 00 times Medical on inhaler daily. Branch budesonide- Yes [id number] 2{puff} Inhale 2 [facility] formoteroL 3-19 Puffs 2 ity of 160-4.5 00:00: (two) [place] mcg/actuati 00 times Medical on inhaler daily. Branch budesonide- Yes [id number] 2{puff} Inhale 2 [facility] formoteroL 3-19 Puffs 2 ity of 160-4.5 00:00: (two) [place] mcg/actuati 00 times Medical on inhaler daily. Branch budesonide- Yes [id number] 2{puff} Inhale 2 [facility] formoteroL 3-19 Puffs 2 ity of 160-4.5 00:00: (two) [place] mcg/actuati 00 times Medical on inhaler daily. [facility] budesonide- Yes [id number] 2{puff} Inhale 2 [facility] formoteroL 3-19 Puffs 2 ity of 160-4.5 00:00: (two) [place] mcg/actuati 00 times Medical on inhaler daily. Branch budesonide- Yes [id number] 2{puff} Inhale 2 [facility] formoteroL 3-19 Puffs 2 ity of 160-4.5 00:00: (two) [place] mcg/actuati 00 times Medical on inhaler daily. [facility] budesonide- Yes [id number] 2{puff} Inhale 2 [facility] formoteroL 3-19 Puffs 2 ity of 160-4.5 00:00: (two) [place] mcg/actuati 00 times Medical on inhaler daily. Branch budesonide- Yes [id number] 2{puff} Inhale 2 [facility] formoteroL 3-19 Puffs 2 ity of 160-4.5 00:00: (two) [place] mcg/actuati 00 times Medical on inhaler daily. Branch budesonide- Yes [id number] 2{puff} Inhale 2 [facility] formoteroL 3-19 Puffs 2 ity of 160-4.5 00:00: (two) [place] mcg/actuati 00 times Medical on inhaler daily. Branch budesonide Yes [id number] 2{puff} Inhale 2 [facility] formoteroL 3-19 Puffs 2 ity of 160-4.5 00:00: (two) [place] mcg/actuati 00 times Medical on inhaler daily. [facility] budesonide Yes [id number] 2{puff} Inhale 2 [facility] formoteroL 3-19 Puffs 2 ity of 160-4.5 00:00: (two) [place] mcg/actuati 00 times Medical on inhaler daily. [facility] budesonide Yes [id number] 2{puff} Inhale 2 [facility] formoteroL 3-19 Puffs 2 ity of 160-4.5 00:00: (two) [place] mcg/actuati 00 times Medical on inhaler daily. [facility] budesonide Yes [id number] 2{puff} Inhale 2 [facility] formoteroL 3-19 Puffs 2 ity of 160-4.5 00:00: (two) [place] mcg/actuati 00 times Medical on inhaler daily. [facility] budesonide Yes [id number] 2{puff} Inhale 2 [facility] formoteroL 3-19 Puffs 2 ity of 160-4.5 00:00: (two) [place] mcg/actuati 00 times Medical on inhaler daily. [facility] budesonide Yes [id number] 2{puff} Inhale 2 [facility] formoteroL 3-19 Puffs 2 ity of 160-4.5 00:00: (two) [place] mcg/actuati 00 times Medical on inhaler daily. [facility] budesonide Yes [id number] 2{puff} Inhale 2 [facility] formoteroL 3-19 Puffs 2 ity of 160-4.5 00:00: (two) [place] mcg/actuati 00 times Medical on inhaler daily. [facility] budesonide Yes [id number] 2{puff} Inhale 2 [facility] formoteroL 3-19 Puffs 2 ity of 160-4.5 00:00: (two) [place] mcg/actuati 00 times Medical on inhaler daily. [facility] budesonide Yes [id number] 2{puff} Inhale 2 [facility] formoteroL 3-19 Puffs 2 ity of 160-4.5 00:00: (two) [place] mcg/actuati 00 times Medical on inhaler daily. [facility] budesonide- Yes [id number] 2{puff} Inhale 2 [facility] formoteroL 3-19 Puffs 2 ity of 160-4.5 00:00: (two) [place] mcg/actuati 00 times Medical on inhaler daily. [facility] budesonide- Yes [id number] 2{puff} Inhale 2 [facility] formoteroL 3-19 Puffs 2 ity of 160-4.5 00:00: (two) [place] mcg/actuati 00 times Medical on inhaler daily. [facility] budesonide- Yes [id number] 2{puff} Inhale 2 [facility] formoteroL 3-19 Puffs 2 ity of 160-4.5 00:00: (two) [place] mcg/actuati 00 times Medical on inhaler daily. [facility] budesonide- Yes [id number] 2{puff} Inhale 2 [facility] formoteroL 3-19 Puffs 2 ity of 160-4.5 00:00: (two) [place] mcg/actuati 00 times Medical on inhaler daily. [facility] budesonide- Yes [id number] 2{puff} Inhale 2 [facility] formoteroL 3-19 Puffs 2 ity of 160-4.5 00:00: (two) [place] mcg/actuati 00 times Medical on inhaler daily. [facility] budesonide- Yes [id number] 2{puff} Inhale 2 [facility] formoteroL 3-19 Puffs 2 ity of 160-4.5 00:00: (two) [place] mcg/actuati 00 times Medical on inhaler daily. [facility] budesonide- Yes [id number] 2{puff} Inhale 2 [facility] formoteroL 3-19 Puffs 2 ity of 160-4.5 00:00: (two) [place] mcg/actuati 00 times Medical on inhaler daily. [facility] budesonide- Yes [id number] 2{puff} Inhale 2 [facility] formoteroL 3-19 Puffs 2 ity of 160-4.5 00:00: (two) [place] mcg/actuati 00 times Medical on inhaler daily. [facility] budesonide- Yes [id number] 2{puff} Inhale 2 [facility] formoteroL 3-19 Puffs 2 ity of 160-4.5 00:00: (two) [place] mcg/actuati 00 times Medical on inhaler daily. [facility] budesonide- Yes [id number] 2{puff} Inhale 2 [facility] formoteroL 3-19 Puffs 2 ity of 160-4.5 00:00: (two) [place] mcg/actuati 00 times Medical on inhaler daily. [facility] budesonide- Yes [id number] 2{puff} Inhale 2 [facility] formoteroL 3-19 Puffs 2 ity of 160-4.5 00:00: (two) [place] mcg/actuati 00 times Medical on inhaler daily. [facility] budesonide- Yes [id number] 2{puff} Inhale 2 [facility] formoteroL 3-19 Puffs 2 ity of 160-4.5 00:00: (two) [place] mcg/actuati 00 times Medical on inhaler daily. [facility] budesonide- Yes [id number] 2{puff} Inhale 2 [facility] formoteroL 3-19 Puffs 2 ity of 160-4.5 00:00: (two) [place] mcg/actuati 00 times Medical on inhaler daily. [facility] budesonide- Yes [id number] 2{puff} Inhale 2 [facility] formoteroL 3-19 Puffs 2 ity of 160-4.5 00:00: (two) [place] mcg/actuati 00 times Medical on inhaler daily. [facility] budesonide- Yes [id number] 2{puff} Inhale 2 [facility] formoteroL 3-19 Puffs 2 ity of 160-4.5 00:00: (two) [place] mcg/actuati 00 times Medical on inhaler daily. [facility] budesonide- Yes [id number] 2{puff} Inhale 2 [facility] formoteroL 3-19 Puffs 2 ity of 160-4.5 00:00: (two) [place] mcg/actuati 00 times Medical on inhaler daily. [facility] budesonide Yes [id number] 2{puff} Inhale 2 [facility] formoteroL 3-19 Puffs 2 ity of 160-4.5 00:00: (two) [place] mcg/actuati 00 times Medical on inhaler daily. [facility] budesonide Yes [id number] 2{puff} Inhale 2 [facility] formoteroL 3-19 Puffs 2 ity of 160-4.5 00:00: (two) [place] mcg/actuati 00 times Medical on inhaler daily. [facility] budesonide Yes [id number] 2{puff} Inhale 2 [facility] formoteroL 3-19 Puffs 2 ity of 160-4.5 00:00: (two) [place] mcg/actuati 00 times Medical on inhaler daily. [facility] budesonide Yes [id number] 2{puff} Inhale 2 [facility] formoteroL 3-19 Puffs 2 ity of 160-4.5 00:00: (two) [place] mcg/actuati 00 times Medical on inhaler daily. [facility] budesonide Yes [id number] 2{puff} Inhale 2 [facility] formoteroL 3-19 Puffs 2 ity of 160-4.5 00:00: (two) [place] mcg/actuati 00 times Medical on inhaler daily. [facility] budesonide Yes [id number] 2{puff} Inhale 2 [facility] formoteroL 3-19 Puffs 2 ity of 160-4.5 00:00: (two) [place] mcg/actuati 00 times Medical on inhaler daily. [facility] budesonide Yes [id number] 2{puff} Inhale 2 [facility] formoteroL 3-19 Puffs 2 ity of 160-4.5 00:00: (two) [place] mcg/actuati 00 times Medical on inhaler daily. [facility] budesonide Yes [id number] 2{puff} Inhale 2 [facility] formoteroL 3-19 Puffs 2 ity of 160-4.5 00:00: (two) [place] mcg/actuati 00 times Medical on inhaler daily. [facility] budesonide Yes [id number] 2{puff} Inhale 2 [facility] formoteroL 3-19 Puffs 2 ity of 160-4.5 00:00: (two) [place] mcg/actuati 00 times Medical on inhaler daily. [facility] budesonide- Yes [id number] 2{puff} Inhale 2 [facility] formoteroL 3-19 Puffs 2 ity of 160-4.5 00:00: (two) [place] mcg/actuati 00 times Medical on inhaler daily. [facility] budesonide- Yes [id number] 2{puff} Inhale 2 [facility] formoteroL 3-19 Puffs 2 ity of 160-4.5 00:00: (two) [place] mcg/actuati 00 times Medical on inhaler daily. [facility] budesonide- Yes [id number] 2{puff} Inhale 2 [facility] formoteroL 3-19 Puffs 2 ity of 160-4.5 00:00: (two) [place] mcg/actuati 00 times Medical on inhaler daily. [facility] budesonide- Yes [id number] 2{puff} Inhale 2 [facility] formoteroL 3-19 Puffs 2 ity of 160-4.5 00:00: (two) [place] mcg/actuati 00 times Medical on inhaler daily. [facility] budesonide- Yes [id number] 2{puff} Inhale 2 [facility] formoteroL 3-19 Puffs 2 ity of 160-4.5 00:00: (two) [place] mcg/actuati 00 times Medical on inhaler daily. [facility] budesonide- Yes [id number] 2{puff} Inhale 2 [facility] formoteroL 3-19 Puffs 2 ity of 160-4.5 00:00: (two) [place] mcg/actuati 00 times Medical on inhaler daily. [facility] budesonide- Yes [id number] 2{puff} Inhale 2 [facility] formoteroL 3-19 Puffs 2 ity of 160-4.5 00:00: (two) [place] mcg/actuati 00 times Medical on inhaler daily. [facility] budesonide- Yes [id number] 2{puff} Inhale 2 [facility] formoteroL 3-19 Puffs 2 ity of 160-4.5 00:00: (two) [place] mcg/actuati 00 times Medical on inhaler daily. [facility] budesonide- Yes [id number] 2{puff} Inhale 2 [facility] formoteroL 3-19 Puffs 2 ity of 160-4.5 00:00: (two) [place] mcg/actuati 00 times Medical on inhaler daily. [facility] budesonide- Yes [id number] 2{puff} Inhale 2 [facility] formoteroL 3-19 Puffs 2 ity of 160-4.5 00:00: (two) [place] mcg/actuati 00 times Medical on inhaler daily. [facility] budesonide- Yes [id number] 2{puff} Inhale 2 [facility] formoteroL 3-19 Puffs 2 ity of 160-4.5 00:00: (two) [place] mcg/actuati 00 times Medical on inhaler daily. [place] budesonide- Yes [id number] 2{puff} Inhale 2 [facility] formoteroL 3-19 Puffs 2 ity of 160-4.5 00:00: (two) [place] mcg/actuati 00 times Medical on inhaler daily. [facility] budesonide- Yes [id number] 2{puff} Inhale 2 [facility] formoteroL 3-19 Puffs 2 ity of 160-4.5 00:00: (two) [place] mcg/actuati 00 times Medical on inhaler daily. [place] budesonide- Yes [id number] 2{puff} Inhale 2 [facility] formoteroL 3-19 Puffs 2 ity of 160-4.5 00:00: (two) [place] mcg/actuati 00 times Medical on inhaler daily. [facility] budesonide- Yes [id number] 2{puff} Inhale 2 [facility] formoteroL 3-19 Puffs 2 ity of 160-4.5 00:00: (two) [place] mcg/actuati 00 times Medical on inhaler daily. [facility] budesonide- Yes [id number] 2{puff} Inhale 2 [facility] formoteroL 3-19 Puffs 2 ity of 160-4.5 00:00: (two) [place] mcg/actuati 00 times Medical on inhaler daily. [facility] budesonide Yes [id number] 2{puff} Inhale 2 [facility] formoteroL 3-19 Puffs 2 ity of 160-4.5 00:00: (two) [place] mcg/actuati 00 times Medical on inhaler daily. [facility] budesonide Yes [id number] 2{puff} Inhale 2 [facility] formoteroL 3-19 Puffs 2 ity of 160-4.5 00:00: (two) [place] mcg/actuati 00 times Medical on inhaler daily. [facility] budesonide Yes [id number] 2{puff} Inhale 2 [facility] formoteroL 3-19 Puffs 2 ity of 160-4.5 00:00: (two) [place] mcg/actuati 00 times Medical on inhaler daily. [facility] budesonide Yes [id number] 2{puff} Inhale 2 [facility] formoteroL 3-19 Puffs 2 ity of 160-4.5 00:00: (two) [place] mcg/actuati 00 times Medical on inhaler daily. [facility] budesonide Yes [id number] 2{puff} Inhale 2 [facility] formoteroL 3-19 Puffs 2 ity of 160-4.5 00:00: (two) [place] mcg/actuati 00 times Medical on inhaler daily. [facility] budesonide Yes [id number] 2{puff} Inhale 2 [facility] formoteroL 3-19 Puffs 2 ity of 160-4.5 00:00: (two) [place] mcg/actuati 00 times Medical on inhaler daily. [facility] budesonide Yes [id number] 2{puff} Inhale 2 [facility] formoteroL 3-19 Puffs 2 ity of 160-4.5 00:00: (two) [place] mcg/actuati 00 times Medical on inhaler daily. [facility] budesonide Yes [id number] 2{puff} Inhale 2 [facility] formoteroL 3-19 Puffs 2 ity of 160-4.5 00:00: (two) [place] mcg/actuati 00 times Medical on inhaler daily. [facility] budesonide Yes [id number] 2{puff} Inhale 2 [facility] formoteroL 3-19 Puffs 2 ity of 160-4.5 00:00: (two) [place] mcg/actuati 00 times Medical on inhaler daily. [facility] budesonide- Yes [id number] 2{puff} Inhale 2 [facility] formoteroL 3-19 Puffs 2 ity of 160-4.5 00:00: (two) [place] mcg/actuati 00 times Medical on inhaler daily. [facility] budesonide- Yes [id number] 2{puff} Inhale 2 [facility] formoteroL 3-19 Puffs 2 ity of 160-4.5 00:00: (two) [place] mcg/actuati 00 times Medical on inhaler daily. [facility] budesonide- Yes [id number] 2{puff} Inhale 2 [facility] formoteroL 3-19 Puffs 2 ity of 160-4.5 00:00: (two) [place] mcg/actuati 00 times Medical on inhaler daily. [facility] budesonide- Yes [id number] 2{puff} Inhale 2 [facility] formoteroL 3-19 Puffs 2 ity of 160-4.5 00:00: (two) [place] mcg/actuati 00 times Medical on inhaler daily. [facility] budesonide- Yes [id number] 2{puff} Inhale 2 [facility] formoteroL 3-19 Puffs 2 ity of 160-4.5 00:00: (two) [place] mcg/actuati 00 times Medical on inhaler daily. [facility] budesonide- Yes [id number] 2{puff} Inhale 2 [facility] formoteroL 3-19 Puffs 2 ity of 160-4.5 00:00: (two) [place] mcg/actuati 00 times Medical on inhaler daily. [facility] budesonide- Yes [id number] 2{puff} Inhale 2 [facility] formoteroL 3-19 Puffs 2 ity of 160-4.5 00:00: (two) [place] mcg/actuati 00 times Medical on inhaler daily. [facility] budesonide- Yes [id number] 2{puff} Inhale 2 [facility] formoteroL 3-19 Puffs 2 ity of 160-4.5 00:00: (two) [place] mcg/actuati 00 times Medical on inhaler daily. [facility] budesonide- Yes [id number] 2{puff} Inhale 2 [facility] formoteroL 3-19 Puffs 2 ity of 160-4.5 00:00: (two) [place] mcg/actuati 00 times Medical on inhaler daily. [facility] budesonide- Yes [id number] 2{puff} Inhale 2 [facility] formoteroL 3-19 Puffs 2 ity of 160-4.5 00:00: (two) [place] mcg/actuati 00 times Medical on inhaler daily. [facility] budesonide- Yes [id number] 2{puff} Inhale 2 [facility] formoteroL 3-19 Puffs 2 ity of 160-4.5 00:00: (two) [place] mcg/actuati 00 times Medical on inhaler daily. [facility] budesonide- Yes [id number] 2{puff} Inhale 2 [facility] formoteroL 3-19 Puffs 2 ity of 160-4.5 00:00: (two) [place] mcg/actuati 00 times Medical on inhaler daily. [facility] budesonide- Yes [id number] 2{puff} Inhale 2 [facility] formoteroL 3-19 Puffs 2 ity of 160-4.5 00:00: (two) [place] mcg/actuati 00 times Medical on inhaler daily. [facility] budesonide- Yes [id number] 2{puff} Inhale 2 [facility] formoteroL 3-19 Puffs 2 ity of 160-4.5 00:00: (two) [place] mcg/actuati 00 times Medical on inhaler daily. [facility] budesonide- Yes [id number] 2{puff} Inhale 2 [facility] formoteroL 3-19 Puffs 2 ity of 160-4.5 00:00: (two) [place] mcg/actuati 00 times Medical on inhaler daily. [facility] budesonide- Yes [id number] 2{puff} Inhale 2 [facility] formoteroL 3-19 Puffs 2 ity of 160-4.5 00:00: (two) [place] mcg/actuati 00 times Medical on inhaler daily. [facility] budesonide- Yes [id number] 2{puff} Inhale 2 [facility] formoteroL 3-19 Puffs 2 ity of 160-4.5 00:00: (two) [place] mcg/actuati 00 times Medical on inhaler daily. [facility] budesonide- Yes [id number] 2{puff} Inhale 2 [facility] formoteroL 3-19 Puffs 2 ity of 160-4.5 00:00: (two) [place] mcg/actuati 00 times Medical on inhaler daily. Branch budesonide- Yes [id number] 2{puff} Inhale 2 [facility] formoteroL 3-19 Puffs 2 ity of 160-4.5 00:00: (two) [place] mcg/actuati 00 times Medical on inhaler daily. [place] vitamin C Yes [id number] 1000mg Take 1 [facility] with lizz 3-04 tablet by ity o f hips 1,000 00:00: mouth [place] mg tablet 00 daily. [facility] vitamin C Yes [id number] 1000mg Take 1 [facility] with lizz 3-04 tablet by ity o f hips 1,000 00:00: mouth [place] mg tablet 00 daily. [facility] vitamin C Yes [id number] 1000mg Take 1 [facility] with lizz 3-04 tablet by ity o f hips 1,000 00:00: mouth [place] mg tablet 00 daily. [facility] vitamin C Yes [id number] 1000mg Take 1 [facility] with lizz 3-04 tablet by ity o f hips 1,000 00:00: mouth [place] mg tablet 00 daily. [facility] vitamin C Yes [id number] 1000mg Take 1 [facility] with lizz 3-04 tablet by ity o f hips 1,000 00:00: mouth [place] mg tablet 00 daily. [facility] vitamin C Yes [id number] 1000mg Take 1 [facility] with lizz 3-04 tablet by ity o f hips 1,000 00:00: mouth [place] mg tablet 00 daily. [facility] vitamin C Yes [id number] 1000mg Take 1 [facility] with lizz 3-04 tablet by ity o f hips 1,000 00:00: mouth [place] mg tablet 00 daily. [facility] vitamin C Yes [id number] 1000mg Take 1 [facility] with lizz 3-04 tablet by ity o f hips 1,000 00:00: mouth [place] mg tablet 00 daily. [facility] vitamin C Yes [id number] 1000mg Take 1 [facility] with lizz 3-04 tablet by ity o f hips 1,000 00:00: mouth [place] mg tablet 00 daily. [facility] vitamin C Yes [id number] 1000mg Take 1 [facility] with lizz 3-04 tablet by ity o f hips 1,000 00:00: mouth [place] mg tablet 00 daily. [facility] vitamin C Yes [id number] 1000mg Take 1 [facility] with lizz 3-04 tablet by ity o f hips 1,000 00:00: mouth [place] mg tablet 00 daily. [facility] vitamin C Yes [id number] 1000mg Take 1 [facility] with lizz 3-04 tablet by ity o f hips 1,000 00:00: mouth [place] mg tablet 00 daily. [facility] vitamin C Yes [id number] 1000mg Take 1 [facility] with lizz 3-04 tablet by ity o f hips 1,000 00:00: mouth [place] mg tablet 00 daily. [facility] vitamin C Yes [id number] 1000mg Take 1 [facility] with lizz 3-04 tablet by ity o f hips 1,000 00:00: mouth [place] mg tablet 00 daily. [facility] vitamin C Yes [id number] 1000mg Take 1 [facility] with lizz 3-04 tablet by ity o f hips 1,000 00:00: mouth [place] mg tablet 00 daily. [facility] vitamin C Yes [id number] 1000mg Take 1 [facility] with lizz 3-04 tablet by ity o f hips 1,000 00:00: mouth [place] mg tablet 00 daily. [facility] vitamin C Yes [id number] 1000mg Take 1 [facility] with lizz 3-04 tablet by ity o f hips 1,000 00:00: mouth [place] mg tablet 00 daily. [facility] vitamin C Yes [id number] 1000mg Take 1 [facility] with lizz 3-04 tablet by ity o f hips 1,000 00:00: mouth [place] mg tablet 00 daily. [facility] vitamin C Yes [id number] 1000mg Take 1 [facility] with lizz 3-04 tablet by ity o f hips 1,000 00:00: mouth [place] mg tablet 00 daily. [facility] vitamin C Yes [id number] 1000mg Take 1 [facility] with lizz 3-04 tablet by ity o f hips 1,000 00:00: mouth [place] mg tablet 00 daily. [facility] vitamin C Yes [id number] 1000mg Take 1 [facility] with lizz 3-04 tablet by ity o f hips 1,000 00:00: mouth [place] mg tablet 00 daily. [facility] vitamin C Yes [id number] 1000mg Take 1 [facility] with lizz 3-04 tablet by ity o f hips 1,000 00:00: mouth [place] mg tablet 00 daily. [facility] vitamin C Yes [id number] 1000mg Take 1 [facility] with lizz 3-04 tablet by ity o f hips 1,000 00:00: mouth [place] mg tablet 00 daily. [facility] vitamin C Yes [id number] 1000mg Take 1 [facility] with lizz 3-04 tablet by ity o f hips 1,000 00:00: mouth [place] mg tablet 00 daily. [facility] vitamin C Yes [id number] 1000mg Take 1 [facility] with lizz 3-04 tablet by ity o f hips 1,000 00:00: mouth [place] mg tablet 00 daily. [facility] vitamin C Yes [id number] 1000mg Take 1 [facility] with lizz 3-04 tablet by ity o f hips 1,000 00:00: mouth [place] mg tablet 00 daily. [facility] vitamin C Yes [id number] 1000mg Take 1 [facility] with lizz 3-04 tablet by ity o f hips 1,000 00:00: mouth [place] mg tablet 00 daily. [facility] vitamin C Yes [id number] 1000mg Take 1 [facility] with lizz 3-04 tablet by ity o f hips 1,000 00:00: mouth [place] mg tablet 00 daily. [facility] vitamin C Yes [id number] 1000mg Take 1 [facility] with lizz 3-04 tablet by ity o f hips 1,000 00:00: mouth [place] mg tablet 00 daily. [facility] vitamin C Yes [id number] 1000mg Take 1 [facility] with lizz 3-04 tablet by ity o f hips 1,000 00:00: mouth [place] mg tablet 00 daily. [facility] vitamin C Yes [id number] 1000mg Take 1 [facility] with lizz 3-04 tablet by ity o f hips 1,000 00:00: mouth [place] mg tablet 00 daily. [facility] vitamin C Yes [id number] 1000mg Take 1 [facility] with lizz 3-04 tablet by ity o f hips 1,000 00:00: mouth [place] mg tablet 00 daily. [facility] vitamin C Yes [id number] 1000mg Take 1 [facility] with lizz 3-04 tablet by ity o f hips 1,000 00:00: mouth [place] mg tablet 00 daily. [facility] vitamin C Yes [id number] 1000mg Take 1 [facility] with lizz 3-04 tablet by ity o f hips 1,000 00:00: mouth [place] mg tablet 00 daily. [facility] vitamin C Yes [id number] 1000mg Take 1 [facility] with lizz 3-04 tablet by ity o f hips 1,000 00:00: mouth [place] mg tablet 00 daily. [facility] vitamin C Yes [id number] 1000mg Take 1 [facility] with lizz 3-04 tablet by ity o f hips 1,000 00:00: mouth [place] mg tablet 00 daily. [facility] vitamin C Yes [id number] 1000mg Take 1 [facility] with lizz 3-04 tablet by ity o f hips 1,000 00:00: mouth [place] mg tablet 00 daily. [facility] vitamin C Yes [id number] 1000mg Take 1 [facility] with lizz 3-04 tablet by ity o f hips 1,000 00:00: mouth [place] mg tablet 00 daily. [facility] vitamin C Yes [id number] 1000mg Take 1 [facility] with lizz 3-04 tablet by ity o f hips 1,000 00:00: mouth [place] mg tablet 00 daily. [facility] vitamin C Yes [id number] 1000mg Take 1 [facility] with lizz 3-04 tablet by ity o f hips 1,000 00:00: mouth [place] mg tablet 00 daily. [facility] vitamin C Yes [id number] 1000mg Take 1 [facility] with lizz 3-04 tablet by ity o f hips 1,000 00:00: mouth [place] mg tablet 00 daily. [facility] vitamin C Yes [id number] 1000mg Take 1 [facility] with lizz 3-04 tablet by ity o f hips 1,000 00:00: mouth [place] mg tablet 00 daily. [facility] vitamin C Yes [id number] 1000mg Take 1 [facility] with lizz 3-04 tablet by ity o f hips 1,000 00:00: mouth [place] mg tablet 00 daily. [facility] vitamin C Yes [id number] 1000mg Take 1 [facility] with lizz 3-04 tablet by ity o f hips 1,000 00:00: mouth [place] mg tablet 00 daily. [facility] vitamin C Yes [id number] 1000mg Take 1 [facility] with lizz 3-04 tablet by ity o f hips 1,000 00:00: mouth [place] mg tablet 00 daily. [facility] vitamin C Yes [id number] 1000mg Take 1 [facility] with lizz 3-04 tablet by ity o f hips 1,000 00:00: mouth [place] mg tablet 00 daily. [facility] vitamin C Yes [id number] 1000mg Take 1 [facility] with lizz 3-04 tablet by ity o f hips 1,000 00:00: mouth [place] mg tablet 00 daily. [facility] vitamin C Yes [id number] 1000mg Take 1 [facility] with lizz 3-04 tablet by ity o f hips 1,000 00:00: mouth [place] mg tablet 00 daily. [facility] vitamin C Yes [id number] 1000mg Take 1 [facility] with lizz 3-04 tablet by ity o f hips 1,000 00:00: mouth [place] mg tablet 00 daily. [facility] vitamin C Yes [id number] 1000mg Take 1 [facility] with lizz 3-04 tablet by ity o f hips 1,000 00:00: mouth [place] mg tablet 00 daily. [facility] vitamin C Yes [id number] 1000mg Take 1 [facility] with lizz 3-04 tablet by ity o f hips 1,000 00:00: mouth [place] mg tablet 00 daily. [facility] vitamin C Yes [id number] 1000mg Take 1 [facility] with lizz 3-04 tablet by ity o f hips 1,000 00:00: mouth [place] mg tablet 00 daily. [facility] vitamin C Yes [id number] 1000mg Take 1 [facility] with lizz 3-04 tablet by ity o f hips 1,000 00:00: mouth [place] mg tablet 00 daily. [facility] vitamin C Yes [id number] 1000mg Take 1 [facility] with lizz 3-04 tablet by ity o f hips 1,000 00:00: mouth [place] mg tablet 00 daily. [facility] vitamin C Yes [id number] 1000mg Take 1 [facility] with lizz 3-04 tablet by ity o f hips 1,000 00:00: mouth [place] mg tablet 00 daily. [facility] vitamin C Yes [id number] 1000mg Take 1 [facility] with lizz 3-04 tablet by ity o f hips 1,000 00:00: mouth [place] mg tablet 00 daily. [facility] vitamin C Yes [id number] 1000mg Take 1 [facility] with lizz 3-04 tablet by ity o f hips 1,000 00:00: mouth [place] mg tablet 00 daily. [facility] vitamin C Yes [id number] 1000mg Take 1 [facility] with lizz 3-04 tablet by ity o f hips 1,000 00:00: mouth [place] mg tablet 00 daily. [facility] vitamin C Yes [id number] 1000mg Take 1 [facility] with lizz 3-04 tablet by ity o f hips 1,000 00:00: mouth [place] mg tablet 00 daily. [facility] vitamin C Yes [id number] 1000mg Take 1 [facility] with lizz 3-04 tablet by ity o f hips 1,000 00:00: mouth [place] mg tablet 00 daily. [facility] vitamin C Yes [id number] 1000mg Take 1 [facility] with lizz 3-04 tablet by ity o f hips 1,000 00:00: mouth [place] mg tablet 00 daily. [facility] vitamin C Yes [id number] 1000mg Take 1 [facility] with lizz 3-04 tablet by ity o f hips 1,000 00:00: mouth [place] mg tablet 00 daily. [facility] vitamin C Yes [id number] 1000mg Take 1 [facility] with lizz 3-04 tablet by ity o f hips 1,000 00:00: mouth [place] mg tablet 00 daily. [facility] vitamin C Yes [id number] 1000mg Take 1 [facility] with lizz 3-04 tablet by ity o f hips 1,000 00:00: mouth [place] mg tablet 00 daily. [facility] vitamin C Yes [id number] 1000mg Take 1 [facility] with lizz 3-04 tablet by ity o f hips 1,000 00:00: mouth [place] mg tablet 00 daily. [facility] vitamin C Yes [id number] 1000mg Take 1 [facility] with lizz 3-04 tablet by ity o f hips 1,000 00:00: mouth [place] mg tablet 00 daily. [facility] vitamin C Yes [id number] 1000mg Take 1 [facility] with lizz 3-04 tablet by ity o f hips 1,000 00:00: mouth [place] mg tablet 00 daily. [facility] vitamin C Yes [id number] 1000mg Take 1 [facility] with lizz 3-04 tablet by ity o f hips 1,000 00:00: mouth [place] mg tablet 00 daily. [facility] vitamin C Yes [id number] 1000mg Take 1 [facility] with lizz 3-04 tablet by ity o f hips 1,000 00:00: mouth [place] mg tablet 00 daily. [facility] vitamin C Yes [id number] 1000mg Take 1 [facility] with lizz 3-04 tablet by ity o f hips 1,000 00:00: mouth [place] mg tablet 00 daily. [facility] vitamin C Yes [id number] 1000mg Take 1 [facility] with lizz 3-04 tablet by ity o f hips 1,000 00:00: mouth [place] mg tablet 00 daily. [facility] vitamin C Yes [id number] 1000mg Take 1 [facility] with lizz 3-04 tablet by ity o f hips 1,000 00:00: mouth [place] mg tablet 00 daily. [facility] vitamin C Yes [id number] 1000mg Take 1 [facility] with lizz 3-04 tablet by ity o f hips 1,000 00:00: mouth [place] mg tablet 00 daily. [facility] vitamin C Yes [id number] 1000mg Take 1 [facility] with lizz 3-04 tablet by ity o f hips 1,000 00:00: mouth [place] mg tablet 00 daily. [facility] vitamin C Yes [id number] 1000mg Take 1 [facility] with lizz 3-04 tablet by ity o f hips 1,000 00:00: mouth [place] mg tablet 00 daily. [facility] vitamin C Yes [id number] 1000mg Take 1 [facility] with lizz 3-04 tablet by ity o f hips 1,000 00:00: mouth [place] mg tablet 00 daily. [facility] vitamin C Yes [id number] 1000mg Take 1 [facility] with lizz 3-04 tablet by ity o f hips 1,000 00:00: mouth [place] mg tablet 00 daily. [facility] vitamin C Yes [id number] 1000mg Take 1 [facility] with lizz 3-04 tablet by ity o f hips 1,000 00:00: mouth [place] mg tablet 00 daily. [facility] vitamin C Yes [id number] 1000mg Take 1 [facility] with lizz 3-04 tablet by ity o f hips 1,000 00:00: mouth [place] mg tablet 00 daily. [facility] vitamin C Yes [id number] 1000mg Take 1 [facility] with lizz 3-04 tablet by ity o f hips 1,000 00:00: mouth [place] mg tablet 00 daily. [facility] vitamin C Yes [id number] 1000mg Take 1 [facility] with lizz 3-04 tablet by ity o f hips 1,000 00:00: mouth [place] mg tablet 00 daily. [facility] vitamin C Yes [id number] 1000mg Take 1 [facility] with lizz 3-04 tablet by ity o f hips 1,000 00:00: mouth [place] mg tablet 00 daily. [facility] vitamin C Yes [id number] 1000mg Take 1 [facility] with lizz 3-04 tablet by ity o f hips 1,000 00:00: mouth [place] mg tablet 00 daily. [facility] vitamin C Yes [id number] 1000mg Take 1 [facility] with lizz 3-04 tablet by ity o f hips 1,000 00:00: mouth [place] mg tablet 00 daily. [facility] vitamin C Yes [id number] 1000mg Take 1 [facility] with lizz 3-04 tablet by ity o f hips 1,000 00:00: mouth [place] mg tablet 00 daily. [facility] vitamin C Yes [id number] 1000mg Take 1 [facility] with lizz 3-04 tablet by ity o f hips 1,000 00:00: mouth [place] mg tablet 00 daily. [facility] vitamin C Yes [id number] 1000mg Take 1 [facility] with lizz 3-04 tablet by ity o f hips 1,000 00:00: mouth [place] mg tablet 00 daily. [facility] vitamin C Yes [id number] 1000mg Take 1 [facility] with lizz 3-04 tablet by ity o f hips 1,000 00:00: mouth [place] mg tablet 00 daily. [facility] vitamin C Yes [id number] 1000mg Take 1 [facility] with lizz 3-04 tablet by ity o f hips 1,000 00:00: mouth [place] mg tablet 00 daily. [facility] vitamin C Yes [id number] 1000mg Take 1 [facility] with lizz 3-04 tablet by ity o f hips 1,000 00:00: mouth [place] mg tablet 00 daily. [facility] vitamin C Yes [id number] 1000mg Take 1 [facility] with lizz 3-04 tablet by ity o f hips 1,000 00:00: mouth [place] mg tablet 00 daily. [facility] vitamin C Yes [id number] 1000mg Take 1 [facility] with lizz 3-04 tablet by ity o f hips 1,000 00:00: mouth [place] mg tablet 00 daily. [facility] vitamin C Yes [id number] 1000mg Take 1 [facility] with lizz 3-04 [...] times Ondansetron No Notes: Jose G rene 4-17 (Same [...] oria 4-03 0 l 18:15: Refill(s) [place] 00 topiramate Yes 50 mg = 1 Me moria 50 MG Oral 4-03 tab, PO, l Tablet 18:15: BID, # 60 [place] n [Topamax] 00 tab, 0 Refill(s) Amlodipine Yes PO, PRN, 0 M emoria 4-03 Refill(s) l 18:13: [place] 00 Vitamin D3 Yes = 1 cap, Mem oria 4-03 PO, Every l 18:11: Other Day, Jimmy 00 0 Refill(s) pantoprazol Yes 50 mg, PO, Memoria e 20 MG 4-03 BID, 0 l Enteric 18:10: Refill(s) [place] nn Coated 00 Tablet [Protonix] lisinopril Yes 10 mg = 1 Me moria 10 mg oral 4-03 tab, PO, l tablet 18:09: Daily, 0 [place] 00 Refill(s) Vitamin D Vitamin D Yes PHILL Take 1 [place] (Ergocalcif (Ergocalcif 1-04 [facility] capsule [facility] katrin) 53503 katrin) 18333 00:00: two times ans UNIT Oral UNIT Oral 00 per week Capsule Capsule atorvastati No 40 mg = 1 M emoria n 40 mg 1-03 tab, PO, l oral tablet 18:37: Bedtime, # Jimmy 00 30 tab, 0 Refill(s), Pharmacy: [id number] Aspirin 81 2018- Yes 81 mg = 1 Me moria MG Chewable 1-03 tab, PO, l Tablet 18:37: Daily, # Jimmy 00 30 tab, 0 Refill(s), Pharmacy: [id number] Metformin 2019-0 Yes 500 mg, Memor ia hydrochlori 1-03 PO, BID, # l de 500 MG 18:37: 60 tab, 0 Her espino Oral Tablet 00 Refill(s), [Glucophage Pharmacy: ] [id number] clopidogrel No 75 mg = 1 M emoria 75 mg oral 1-03 tab, PO, l tablet 18:37: Daily, # Jimmy 00 30 tab, 0 Refill(s), Pharmacy: [id number] Sodium No 25 mL, Memoria Chloride 06-15 Route: IV, l 0.9% IV 13:56: Start date: 06/15/18 7:56:00 SOLUTION DEVELOPER, Duration: 30 day, Stop date: 07/15/18 7:55:00 SOLUTION DEVELOPER, PRN Line Flush BD Normal No [...] kg, Priority: NOW, Start date: 06/14/18 9:36:00 SOLUTION DEVELOPER, Duration: 30 day, Stop date: 07/14/18 9:00:00 SOLUTION DEVELOPER pantoprazol No Notes: For Memoria e 06-13 [...] 06-13 (Same as: l 15:00: BD Jimmy 00 Posiflush) Aspirin 81 No 81 mg [...] Nausea & Vomiting, Start date: 06/13/18 6:17:00 SOLUTION DEVELOPER, Duration: 30 day, Stop date: 07/13/18 6:16:00 SOLUTION DEVELOPER ocular No Notes: Memoria lubricant 06-13 (Same as: l 12:00: Refresh Jimmy 00 Plus) Enoxaparin No 40 mg, Memor ia 06-13 Route: l 11:00: SUB-Q, Drug form: INJ, [id number], Dosing Weight 150.091, kg, Start date: 06/13/18 5:00:00 SOLUTION DEVELOPER, Duration: 30 day, Stop date: 07/12/18 5:00:00 SOLUTION DEVELOPER chlorhexidi No Notes: Jose G rene ne 06-13 (Same As: l gluconate 10:34: Peridex) Herm mio 1.2 MG/ML 00 Mouthwash Insulin No 60 units) Jose G rene regular 06-13 WASTE: F/P l 10:30: - Black; E [place] - [facility] Bin Stable for 28 days at room temperatur e Expires in days from ____Date Dextrose No 12.5 gm, Memor ia 50% Syringe 06-13 25 mL, l 10:30: Route: IVP, Drug Form: INJ, Dosing Weight 150.091, kg, PRN, PRN Blood Glucose Results, Start date: 06/13/18 4:30:00 SOLUTION DEVELOPER, Duration: 30 day, Stop date: 07/13/18 4:29:00 SOLUTION DEVELOPER Glucagon 2018-0 No 1 mg, Memoria 06-13 Route: IM, l 10:30: Drug form: PDR/INJ, PRN, Dosing Weight 150.091, kg, PRN Blood Glucose Results, Start date: 06/13/18 4:30:00 SOLUTION DEVELOPER, Duration: 30 day, Stop date: 07/13/18 4:29:00 SOLUTION DEVELOPER Lactated 2018-0 No 1,000 mL, Jose G rene Ringers IV 06-13 Rate: 125 l 1,000 mL 10:29: ml/hr, Infuse over: 8 hr, Route: IV, Dosing Weight 150.091 kg, Total Volume: 1,000, Start date: 06/13/18 4:29:00 SOLUTION DEVELOPER, Duration: 30 day, Stop date: 07/13/18 4:28:00 SOLUTION DEVELOPER, 2.63, m2 Saline No Notes: Memoria Flush 0.9% 06-13 (Same as: l 10:29: BD Posiflush) Vitamin D Vitamin D Yes PHILL Take 1 [place] (Ergocalcif (Ergocalcif 9-11 [facility] capsule [facility] katrin) 55179 katrin) 20004 00:00: two times ans UNIT Oral UNIT Oral 00 per week Capsule Capsule bifidobacte 2017-0 Yes QD Take [facility] (ALIGN[facility] 4 58 Center mg Cap methocarbam 0 Yes 750mg Take [address] [facility] 6-[facility] (ROBAXIN[facility] 11:59: mouth 4 Medic al 750 MG 58 (four) Center tablet times daily as needed . venlafaxine 0 Yes 75mg Q.5D Take 75 mg [facility] [...] Immunizations Ordered Filled Immunization Date Status Comments [facility] e Immunization Name Name Influenza Virus 2022-03-12 Completed [facility], 00:[facility]:00 [place] [facility] Preserv and ABX Branch Free 6 MO-64 YRS Influenza Virus 2022-03-12 Completed [facility], 00:00:00 [place] [facility] Preserv and ABX Branch Free 6 MO-64 YRS Influenza Virus 2022-03-12 Completed [facility], 00:00:00 [place] [facility] Preserv and ABX Branch Free 6 MO-64 YRS Influenza Virus 2022-03-12 Completed [facility], 00:00:00 [place] [facility] Preserv and ABX Branch Free 6 MO-64 YRS Influenza Virus 2022-03-12 Completed [facility], 00:00:00 [place] [facility] Preserv and ABX Branch Free 6 MO-64 YRS Influenza Virus 2022-03-12 Completed [facility], 00:00:00 [place] [facility] Preserv and ABX Branch Free 6 MO-64 YRS Influenza Virus 2022-03-12 Completed [facility], 00:00:00 [place] [facility] Preserv and ABX Branch Free 6 MO-64 YRS Influenza Virus 2022-03-12 Completed [facility] Vacc[facility], 00:00:00 [place] [facility] Preserv and ABX Branch Free 6 MO-64 YRS Influenza Virus 2022-03-12 Completed [facility] [place] [facility] Free [...] [facility]00 [place] [facility] [...] [facility], 00:[facility]00 [place] [facility] Free [...] [facility], 00[facility]00:00 [place] [facility] Free 6 MO-64 YRS Influenza Virus 2022-03-12 Completed [facility], 00:00:00 [place] [facility] Free 6 MO-64 YRS TDAP 2021-08-31 Completed [facility] 00:00:00 [facility] TDAP 2021-08-31 Completed [facility] 00:00:00 [facility] TDAP 2021-08-31 Completed [facility] 00[facility]00:00 [facility] TDAP 2021-08-31 Completed [facility] 00[facility]00:00 [facility] TDAP 2021-08-31 Completed [facility] 00[facility]00:00 [facility] TDAP 2021-08-31 Completed [facility] 00:00:00 [facility] TDAP 2021-08-31 Completed [facility] 00[facility]00:00 [facility] TDAP 2021-08-31 Completed [facility] 00:00:00 [facility] TDAP 2021-08-31 Completed [facility] 00[facility]00:00 [facility] TDAP 2021-08-31 Completed [facility] 00[facility]00:00 [facility] TDAP 2021-08-31 Completed [facility] 00:00:00 [facility] TDAP 2021-08-31 Completed [facility] 00:00:00 [facility] TDAP 2021-08-31 Completed [facility] 00:00:00 [facility] TDAP 2021-08-31 Completed [facility] 00:00:00 [facility] TDAP 2021-08-31 Completed [facility] 00[facility]00:00 [facility] TDAP 2021-08-31 Completed [facility] 00:00:00 [facility] TDAP 2021-08-31 Completed [facility] 00:00:00 [facility] TDAP 2021-08-31 Completed [facility] 00[facility]00:00 [facility] TDAP 2021-08-31 Completed [facility] 00:00:00 [facility] TDAP 2021-08-31 Completed [facility] 00:00:00 [facility] TDAP 2021-08-31 Completed [facility] 00[facility]00:00 [facility] TDAP 2021-08-31 Completed [facility] 00:00:00 [facility] TDAP 2021-08-31 Completed [facility] 00:00:00 [facility] TDAP 2021-08-31 Completed [facility] 00:00:00 [facility] TDAP 2021-08-31 Completed [facility] 00:00:00 [facility] TDAP 2021-08-31 Completed [facility] 00:00:00 [facility] TDAP 2021-08-31 Completed [facility] 00:00:00 [facility] TDAP 2021-08-31 Completed [facility] 00:00:00 [facility] TDAP 2021-08-31 Completed [facility] 00:00:00 [facility] TDAP 2021-08-31 Completed [facility] 00:00:00 [facility] TDAP 2021-08-31 Completed [facility] 00:00:00 [facility] TDAP 2021-08-31 Completed [facility] 00:00:00 [facility] TDAP 2021-08-31 Completed [facility] 00:00:00 [facility] TDAP 2021-08-31 Completed [facility] 00[facility]00:00 [facility] TDAP 2021-08-31 Completed [facility] 00:00:00 [facility] TDAP 2021-08-31 Completed [facility] 00:00:00 [facility] TDAP 2021-08-31 Completed [facility] 00:00:00 [facility] TDAP 2021-08-31 Completed [facility] 00:00:00 [facility] TDAP 2021-08-31 Completed [facility] 00:00:00 [facility] TDAP 2021-08-31 Completed [facility] 00:00:00 [facility] TDAP 2021-08-31 Completed [facility] 00:00:00 [facility] TDAP 2021-08-31 Completed [facility] 00:00:00 [facility] TDAP 2021-08-31 Completed [facility] 00:00:00 [facility] TDAP 2021-08-31 Completed [facility] 00:00:00 [facility] TDAP 2021-08-31 Completed [facility] 00:00:00 [facility] TDAP 2021-08-31 Completed [facility] 00:00:00 [facility] TDAP 2021-08-31 Completed [facility] 00:00:00 [facility] TDAP 2021-08-31 Completed [facility] 00:00:00 [facility] TDAP 2021-08-31 Completed [facility] 00:00:00 [facility] TDAP 2021-08-31 Completed [facility] 00:00:00 [facility] TDAP 2021-08-31 Completed [facility] 00:00:00 [facility] TDAP 2021-08-31 Completed [facility] 00:00:00 [facility] TDAP 2021-08-31 Completed [facility] 00:00:00 [facility] TDAP 2021-08-31 Completed [facility] 00:00:00 [facility] TDAP 2021-08-31 Completed [facility] 00:00:00 [facility] TDAP 2021-08-31 Completed [facility] 00:00:00 [facility] TDAP 2021-08-31 Completed [facility] 00:00:00 [facility] TDAP 2021-08-31 Completed [facility] 00:00:00 [facility] TDAP 2021-08-31 Completed [facility] 00:00:00 [facility] TDAP 2021-08-31 Completed [facility] 00:00:00 [facility] TDAP 2021-08-31 Completed [facility] 00:00:00 [facility] TDAP 2021-08-31 Completed [facility] 00:00:00 [facility] TDAP 2021-08-31 Completed [facility] 00:00:00 [facility] TDAP 2021-08-31 Completed [facility] 00:00:00 [facility] TDAP 2021-08-31 Completed [facility] 00:00:00 [facility] TDAP 2021-08-31 Completed [facility] 00:00:00 [facility] TDAP 2021-08-31 Completed [facility] 00:00:00 [facility] TDAP 2021-08-31 Completed [facility] 00:00:00 [facility] TDAP 2021-08-31 Completed [facility] 00:00:00 [facility] TDAP 2021-08-31 Completed [facility] 00:00:00 [facility] TDAP 2021-08-31 Completed [facility] 00:00:00 [facility] TDAP 2021-08-31 Completed [facility] 00:00:00 [facility] TDAP 2021-08-31 Completed [facility] 00:00:00 [facility] TDAP 2021-08-31 Completed [facility] 00:00:00 [facility] TDAP 2021-08-31 Completed [facility] 00:00:00 [facility] TDAP 2021-08-31 Completed [facility] 00:00:00 [facility] TDAP 2021-08-31 Completed [facility] 00:00:00 [facility] TDAP 2021-08-31 Completed [facility] 00:00:00 [facility] TDAP 2021-08-31 Completed [facility] 00:00:00 [facility] TDAP 2021-08-31 Completed [facility] 00:00:00 [facility] TDAP 2021-08-31 Completed [facility] 00:00:00 [facility] TDAP 2021-08-31 Completed [facility] 00:00:00 [facility] TDAP 2021-08-31 Completed [facility] 00:00:00 [facility] TDAP 2021-08-31 Completed [facility] 00:00:00 [facility] TDAP 2021-08-31 Completed [facility] 00:00:00 [facility] TDAP 2021-08-31 Completed [facility] 00:00:00 [facility] TDAP 2021-08-31 Completed [facility] 00:00:00 [facility] TDAP 2021-08-31 Completed [facility] 00:00:00 [facility] TDAP 2021-08-31 Completed [facility] 00:00:00 [facility] TDAP 2021-08-31 Completed [facility] 00:00:00 [facility] TDAP 2021-08-31 Completed [facility] 00:00:00 [facility] TDAP 2021-08-31 Completed [facility] 00:00:00 [facility] TDAP 2021-08-31 Completed [facility] 00:00:00 [facility] Influenza Virus 2021-04-14 Completed [facility] [...] y of [facility] .5 mL 00:00:00 [facility] 6+ MO [facility] Influenza Virus 2021-04-14 Completed [facility] .5 mL 00:00:00 [facility] 6+ MO [facility] Influenza Virus 2021-04-14 Completed [facility] .5 mL 00:00:00 [facility] 6+ MO [facility] Influenza Virus 2021-04-14 Completed [facility] .5 mL 00:00:00 [facility] 6+ MO [facility] Influenza Virus 2021-04-14 Completed [facility] .5 mL 00:00:00 [facility] 6+ MO Branch Influenza Virus 2021-04-14 Completed [facility] .5 mL 00:00:00 [facility] 6+ MO Branch SARS-COV-2 COVID-19 2020-12-10 Completed [facility] of PFIZER VACCINE 00:00:00 [facility] SARS-COV-2 COVID-19 2020-12-10 Completed [facility]ive rs[facility] of PFIZER VACCINE 00:00:00 [facility] SARS-COV-2 COVID-19 2020-12-10 Completed [facility] rs[facility] of PFIZER VACCINE 00:00:00 [facility] SARS-COV-2 COVID-19 2020-12-10 Completed [facility] of PFIZER VACCINE 00:00:00 [facility] SARS-COV-2 COVID-19 2020-12-10 Completed [facility] of PFIZER VACCINE 00:00:00 [facility] SARS-COV-2 COVID-19 2020-12-10 Completed [facility] of PFIZER VACCINE 00:00:[address] [facility] SARS-COV-2 COVID-19 2020-12-10 Completed [facility] rs[facility] of PFIZER VACCINE 00:00:[address] [facility] SARS-COV-2 COVID-19 2020-12-10 Completed [facility] rs[facility] of PFIZER VACCINE 00:00:[address] [facility] SARS-COV-2 COVID-19 2020-12-10 Completed [facility] rs[facility] of PFIZER VACCINE 00:00:[address] [facility] SARS-COV-2 COVID-19 2020-12-10 Completed [facility] rs[facility] of PFIZER VACCINE 00:00:[address] [facility] SARS-COV-2 COVID-19 2020-12-10 Completed [facility] rs[facility] of PFIZER VACCINE 00:00:[address] [facility] SARS-COV-2 COVID-19 2020-12-10 Completed [facility] rs[facility] of PFIZER VACCINE 00:00:[address] [facility] SARS-COV-2 COVID-19 2020-12-10 Completed [facility] rs[facility] of PFIZER VACCINE 00:00:[address] [facility] SARS-COV-2 COVID-19 2020-12-10 Completed [facility] of PFIZER VACCINE 00:00:[address] [facility] SARS-COV-2 COVID-19 2020-12-10 Completed [facility] of PFIZER VACCINE 00:00:[address] [facility] SARS-COV-2 COVID-19 2020-12-10 Completed [facility] rs[facility] of PFIZER VACCINE 00:00:[address] [facility] SARS-COV-2 COVID-19 2020-12-10 Completed [facility] of PFIZER VACCINE 00:00:[address] [facility] SARS-COV-2 COVID-19 2020-12-10 Completed [facility] of PFIZER VACCINE 00:00:[address] [facility] SARS-COV-2 COVID-19 2020-12-10 Completed [facility] of PFIZER VACCINE 00:00:[address] [facility] SARS-COV-2 COVID-19 2020-12-10 Completed [facility] of PFIZER VACCINE 00:00:00 [facility] SARS-COV-2 COVID-19 2020-12-10 Completed [facility] rs[facility] of PFIZER VACCINE 00:00:[address] [facility] SARS-COV-2 COVID-19 2020-12-10 Completed [facility] rs[facility] of PFIZER VACCINE 00:00:[address] [facility] SARS-COV-2 COVID-19 2020-12-10 Completed [facility] of PFIZER VACCINE 00:00:[address] [facility] SARS-COV-2 COVID-19 2020-12-10 Completed [facility] of PFIZER VACCINE 00:00:[address] [facility] SARS-COV-2 COVID-19 2020-12-10 Completed [facility] of PFIZER VACCINE 00:00:[address] [facility] SARS-COV-2 COVID-19 2020-12-10 Completed [facility] of PFIZER VACCINE 00:00:[address] [facility] SARS-COV-2 COVID-19 2020-12-10 Completed [facility] of PFIZER VACCINE 00:00:[address] [facility] SARS-COV-2 COVID-19 2020-12-10 Completed [facility] of PFIZER VACCINE 00:00:[address] [facility] SARS-COV-2 COVID-19 2020-12-10 Completed [facility] of PFIZER VACCINE 00:00:[address] [facility] SARS-COV-2 COVID-19 2020-12-10 Completed [facility] of PFIZER VACCINE 00:00:[address] [facility] SARS-COV-2 COVID-19 2020-12-10 Completed [facility] of PFIZER VACCINE 00:00:[address] [facility] SARS-COV-2 COVID-19 2020-12-10 Completed [facility] of PFIZER VACCINE 00:00:[address] [facility] SARS-COV-2 COVID-19 2020-12-10 Completed [facility] PFIZER VACCINE 00:00:[address] [facility] SARS-COV-2 COVID-19 2020-12-10 Completed [facility] PFIZER VACCINE 00:00:[address] [facility] SARS-COV-2 COVID-19 2020-12-10 Completed [facility] PFIZER VACCINE 00:00:[address] [facility] SARS-COV-2 COVID-19 2020-12-10 Completed [facility] of PFIZER VACCINE 00:00:[address] [facility] SARS-COV-2 COVID-19 2020-12-10 Completed [facility] of PFIZER VACCINE 00:00:[address] [facility] SARS-COV-2 COVID-19 2020-12-10 Completed [facility] of PFIZER VACCINE 00:00:[address] [facility] SARS-COV-2 COVID-19 2020-12-10 Completed [facility] of PFIZER VACCINE 00:00:[address] [facility] SARS-COV-2 COVID-19 2020-12-10 Completed [facility] of PFIZER VACCINE 00:00:[address] [facility] SARS-COV-2 COVID-19 2020-12-10 Completed [facility] of PFIZER VACCINE 00:00:[address] [facility] SARS-COV-2 COVID-19 2020-12-10 Completed [facility] PFIZER VACCINE 00:00:[address] [facility] SARS-COV-2 COVID-19 2020-12-10 Completed [facility] of PFIZER VACCINE 00:00:[address] [facility] SARS-COV-2 COVID-19 2020-12-10 Completed [facility] of PFIZER VACCINE 00:00:[address] [facility] SARS-COV-2 COVID-19 2020-12-10 Completed [facility] of PFIZER VACCINE 00:00:[address] [facility] SARS-COV-2 COVID-19 2020-12-10 Completed [facility] of PFIZER VACCINE 00:00:[address] [facility] SARS-COV-2 COVID-19 2020-12-10 Completed [facility] PFIZER VACCINE 00:00:[address] [facility] SARS-COV-2 COVID-19 2020-12-10 Completed [facility] PFIZER VACCINE 00:00:[address] [facility] SARS-COV-2 COVID-19 2020-12-10 Completed [facility] PFIZER VACCINE 00:00:[address] [facility] SARS-COV-2 COVID-19 2020-12-10 Completed [facility] of PFIZER VACCINE 00:00:[address] [facility] SARS-COV-2 COVID-19 2020-12-10 Completed [facility] of PFIZER VACCINE 00:00:00 [facility] SARS-COV-2 COVID-19 2020-12-10 Completed [facility] of PFIZER VACCINE 00:00:[address] [facility] SARS-COV-2 COVID-19 2020-12-10 Completed [facility] of PFIZER VACCINE 00:00:00 [facility] SARS-COV-2 COVID-19 2020-12-10 Completed [facility] of PFIZER VACCINE 00:00:[address] [facility] SARS-COV-2 COVID-19 2020-12-10 Completed [facility] of PFIZER VACCINE 00:00:00 [facility] SARS-COV-2 COVID-19 2020-12-10 Completed [facility] of PFIZER VACCINE 00:00:[address] [facility] SARS-COV-2 COVID-19 2020-12-10 Completed [facility] of PFIZER VACCINE 00:00:[address] [facility] SARS-COV-2 COVID-19 2020-12-10 Completed [facility] of PFIZER VACCINE 00:00:00 [facility] SARS-COV-2 COVID-19 2020-12-10 Completed [facility] of PFIZER VACCINE 00:00:00 [facility] SARS-COV-2 COVID-19 2020-12-10 Completed [facility] of PFIZER VACCINE 00:00:00 [facility] SARS-COV-2 COVID-19 2020-12-10 Completed [facility] of PFIZER VACCINE 00:00:00 [facility] SARS-COV-2 COVID-19 2020-12-10 Completed [facility] of PFIZER VACCINE 00:00:00 [facility] SARS-COV-2 COVID-19 2020-12-10 Completed [facility] of PFIZER VACCINE 00:00:00 [facility] SARS-COV-2 COVID-19 2020-12-10 Completed [facility] of PFIZER VACCINE 00:00:00 [facility] SARS-COV-2 COVID-19 2020-12-10 Completed [facility] of PFIZER VACCINE 00:00:00 [facility] SARS-COV-2 COVID-19 2020-12-10 Completed [facility] of PFIZER VACCINE 00:00:00 [facility] SARS-COV-2 COVID-19 2020-12-10 Completed [facility] of PFIZER VACCINE 00:00:00 [facility] SARS-COV-2 COVID-19 2020-12-10 Completed [facility] of PFIZER VACCINE 00:00:[address] [facility] SARS-COV-2 COVID-19 2020-12-10 Completed [facility] of PFIZER VACCINE 00:00:[address] [facility] SARS-COV-2 COVID-19 2020-12-10 Completed [facility] of PFIZER VACCINE 00:00:[address] [facility] SARS-COV-2 COVID-19 2020-12-10 Completed [facility] of PFIZER VACCINE 00:00:[address] [facility] SARS-COV-2 COVID-19 2020-12-10 Completed [facility] of PFIZER VACCINE 00:00:[address] [facility] SARS-COV-2 COVID-19 2020-12-10 Completed [facility] of PFIZER VACCINE 00:00:[address] [facility] SARS-COV-2 COVID-19 2020-12-10 Completed [facility] of PFIZER VACCINE 00:00:[address] [facility] SARS-COV-2 COVID-19 2020-12-10 Completed [facility] of PFIZER VACCINE 00:00:[address] [facility] SARS-COV-2 COVID-19 2020-12-10 Completed [facility] of PFIZER VACCINE 00:00:[address] [facility] SARS-COV-2 COVID-19 2020-12-10 Completed [facility] of PFIZER VACCINE 00:00:[address] [facility] SARS-COV-2 COVID-19 2020-12-10 Completed [facility] of PFIZER VACCINE 00:00:00 [facility] SARS-COV-2 COVID-19 2020-12-10 Completed [facility] of PFIZER VACCINE 00:00:[address] [facility] SARS-COV-2 COVID-19 2020-12-10 Completed [facility] of PFIZER VACCINE 00:00:[address] [facility] SARS-COV-2 COVID-19 2020-12-10 Completed [facility] of PFIZER VACCINE 00:00:[address] [facility] SARS-COV-2 COVID-19 2020-12-10 Completed [facility] of PFIZER VACCINE 00:00:00 [facility] SARS-COV-2 COVID-19 2020-12-10 Completed [facility] of PFIZER VACCINE 00:00:00 [facility] SARS-COV-2 COVID-19 2020-12-10 Completed [facility] of PFIZER VACCINE 00:00:[address] [facility] SARS-COV-2 COVID-19 2020-12-10 Completed [facility] of PFIZER VACCINE 00:00:[address] [facility] SARS-COV-2 COVID-19 2020-12-10 Completed [facility] of PFIZER VACCINE 00:00:[address] [facility] SARS-COV-2 COVID-19 2020-12-10 Completed [facility] of PFIZER VACCINE 00:00:[address] [facility] SARS-COV-2 COVID-19 2020-12-10 Completed [facility] of PFIZER VACCINE 00:00:[address] [facility] SARS-COV-2 COVID-19 2020-12-10 Completed [facility] of PFIZER VACCINE 00:00:[address] [facility] SARS-COV-2 COVID-19 2020-12-10 Completed [facility] of PFIZER VACCINE 00:00:[address] [facility] SARS-COV-2 COVID-19 2020-12-10 Completed [facility] of PFIZER VACCINE 00:00:[address] [facility] SARS-COV-2 COVID-19 2020-12-10 Completed [facility] of PFIZER VACCINE 00:00:[address] [facility] SARS-COV-2 COVID-19 2020-12-10 Completed [facility] of PFIZER VACCINE 00:00:[address] [facility] SARS-COV-2 COVID-19 2020-11-19 Completed [facility] of PFIZER VACCINE 00:00:[address] [facility] SARS-COV-2 COVID-19 2020-11-19 Completed [facility] of PFIZER VACCINE 00:00:[address] [facility] SARS-COV-2 COVID-19 2020-11-19 Completed [facility] of PFIZER VACCINE 00:00:[address] [facility] SARS-COV-2 COVID-19 2020-11-19 Completed [facility] of PFIZER VACCINE 00:00:[address] [facility] SARS-COV-2 COVID-19 2020-11-19 Completed [facility] of PFIZER VACCINE 00:00:[address] [facility] SARS-COV-2 COVID-19 2020-11-19 Completed [facility] of PFIZER VACCINE 00:00:[address] [facility] SARS-COV-2 COVID-19 2020-11-19 Completed [facility] of PFIZER VACCINE 00:00:[address] [facility] SARS-COV-2 COVID-19 2020-11-19 Completed [facility] of PFIZER VACCINE 00:00:[address] [facility] SARS-COV-2 COVID-19 2020-11-19 Completed [facility] of PFIZER VACCINE 00:00:[address] [facility] SARS-COV-2 COVID-19 2020-11-19 Completed [facility] of PFIZER VACCINE 00:00:[address] [facility] SARS-COV-2 COVID-19 2020-11-19 Completed [facility] of PFIZER VACCINE 00:00:[address] [facility] SARS-COV-2 COVID-19 2020-11-19 Completed [facility] of PFIZER VACCINE 00:00:[address] [facility] SARS-COV-2 COVID-19 2020-11-19 Completed [facility] of PFIZER VACCINE 00:00:[address] [facility] SARS-COV-2 COVID-19 2020-11-19 Completed [facility] of PFIZER VACCINE 00:00:[address] [facility] SARS-COV-2 COVID-19 2020-11-19 Completed [facility] of PFIZER VACCINE 00:00:[address] [facility] SARS-COV-2 COVID-19 2020-11-19 Completed [facility] of PFIZER VACCINE 00:00:00 [facility] SARS-COV-2 COVID-19 2020-11-19 Completed [facility] of PFIZER VACCINE 00:00:[address] [facility] SARS-COV-2 COVID-19 2020-11-19 Completed [facility] of PFIZER VACCINE 00:00:[address] [facility] SARS-COV-2 COVID-19 2020-11-19 Completed [facility] of PFIZER VACCINE 00:00:[address] [facility] SARS-COV-2 COVID-19 2020-11-19 Completed [facility] of PFIZER VACCINE 00:00:00 [facility] SARS-COV-2 COVID-19 2020-11-19 Completed [facility] of PFIZER VACCINE 00:00:00 [facility] SARS-COV-2 COVID-19 2020-11-19 Completed [facility] of PFIZER VACCINE 00:00:[address] [facility] SARS-COV-2 COVID-19 2020-11-19 Completed [facility] of PFIZER VACCINE 00:00:[address] [facility] SARS-COV-2 COVID-19 2020-11-19 Completed [facility] of PFIZER VACCINE 00:00:[address] [facility] SARS-COV-2 COVID-19 2020-11-19 Completed [facility] of PFIZER VACCINE 00:00:[address] [facility] SARS-COV-2 COVID-19 2020-11-19 Completed [facility] of PFIZER VACCINE 00:00:[address] [facility] SARS-COV-2 COVID-19 2020-11-19 Completed [facility] of PFIZER VACCINE 00:00:[address] [facility] SARS-COV-2 COVID-19 2020-11-19 Completed [facility] of PFIZER VACCINE 00:00:[address] [facility] SARS-COV-2 COVID-19 2020-11-19 Completed [facility] of PFIZER VACCINE 00:00:[address] [facility] SARS-COV-2 COVID-19 2020-11-19 Completed [facility] of PFIZER VACCINE 00:00:[address] [facility] SARS-COV-2 COVID-19 2020-11-19 Completed [facility] of PFIZER VACCINE 00:00:[address] [facility] SARS-COV-2 COVID-19 2020-11-19 Completed [facility] of PFIZER VACCINE 00:00:[address] [facility] SARS-COV-2 COVID-19 2020-11-19 Completed [facility] of PFIZER VACCINE 00:00:[address] [facility] SARS-COV-2 COVID-19 2020-11-19 Completed [facility] of PFIZER VACCINE 00:00:[address] [facility] SARS-COV-2 COVID-19 2020-11-19 Completed [facility] of PFIZER VACCINE 00:00:[address] [facility] SARS-COV-2 COVID-19 2020-11-19 Completed [facility] of PFIZER VACCINE 00:00:00 [facility] SARS-COV-2 COVID-19 2020-11-19 Completed [facility] of PFIZER VACCINE 00:00:[address] [facility] SARS-COV-2 COVID-19 2020-11-19 Completed [facility] of PFIZER VACCINE 00:00:[address] [facility] SARS-COV-2 COVID-19 2020-11-19 Completed [facility] of PFIZER VACCINE 00:00:[address] [facility] SARS-COV-2 COVID-19 2020-11-19 Completed [facility] of PFIZER VACCINE 00:00:[address] [facility] SARS-COV-2 COVID-19 2020-11-19 Completed [facility] of PFIZER VACCINE 00:00:[address] [facility] SARS-COV-2 COVID-19 2020-11-19 Completed Unive rsity of PFIZER VACCINE 00:00:[address] [facility] SARS-COV-2 COVID-19 2020-11-19 Completed [facility]ive [facility] of PFIZER VACCINE 00:00:[address] [facility] SARS-COV-2 COVID-19 2020-11-19 Completed [facility] of PFIZER VACCINE 00:00:[address] [facility] SARS-COV-2 COVID-19 2020-11-19 Completed [facility] of PFIZER VACCINE 00:00:[address] [facility] SARS-COV-2 COVID-19 2020-11-19 Completed [facility]ive [facility] of PFIZER VACCINE 00:00:[address] [facility] SARS-COV-2 COVID-19 2020-11-19 Completed [facility]ive [facility] of PFIZER VACCINE 00:00:[address] [facility] SARS-COV-2 COVID-19 2020-11-19 Completed [facility] of PFIZER VACCINE 00:00:[address] [facility] SARS-COV-2 COVID-19 2020-11-19 Completed [facility] of PFIZER VACCINE 00:00:[address] [facility] SARS-COV-2 COVID-19 2020-11-19 Completed [facility] of PFIZER VACCINE 00:00:[address] [facility] SARS-COV-2 COVID-19 2020-11-19 Completed [facility] of PFIZER VACCINE 00:00:[address] [facility] SARS-COV-2 COVID-19 2020-11-19 Completed [facility] of PFIZER VACCINE 00:00:00 [facility] SARS-COV-2 COVID-19 2020-11-19 Completed [facility]ive rsity of PFIZER VACCINE 00:00:[address] [facility] SARS-COV-2 COVID-19 2020-11-19 Completed [facility] of PFIZER VACCINE 00:00:[address] [facility] SARS-COV-2 COVID-19 2020-11-19 Completed [facility] of PFIZER VACCINE 00:00:[address] [facility] SARS-COV-2 COVID-19 2020-11-19 Completed [facility] of PFIZER VACCINE 00:00:[address] [facility] SARS-COV-2 COVID-19 2020-11-19 Completed [facility] of PFIZER VACCINE 00:00:[address] [facility] SARS-COV-2 COVID-19 2020-11-19 Completed [facility] of PFIZER VACCINE 00:00:[address] [facility] SARS-COV-2 COVID-19 2020-11-19 Completed [facility] of PFIZER VACCINE 00:00:[address] [facility] SARS-COV-2 COVID-19 2020-11-19 Completed [facility] of PFIZER VACCINE 00:00:[address] [facility] SARS-COV-2 COVID-19 2020-11-19 Completed [facility] of PFIZER VACCINE 00:00:[address] [facility] SARS-COV-2 COVID-19 2020-11-19 Completed [facility] of PFIZER VACCINE 00:00:[address] [facility] SARS-COV-2 COVID-19 2020-11-19 Completed [facility] of PFIZER VACCINE 00:00:[address] [facility] SARS-COV-2 COVID-19 2020-11-19 Completed [facility] of PFIZER VACCINE 00:00:[address] [facility] SARS-COV-2 COVID-19 2020-11-19 Completed [facility] of PFIZER VACCINE 00:00:[address] [facility] SARS-COV-2 COVID-19 2020-11-19 Completed [facility] of PFIZER VACCINE 00:00:[address] [facility] SARS-COV-2 COVID-19 2020-11-19 Completed [facility] of PFIZER VACCINE 00:00:00 [facility] SARS-COV-2 COVID-19 2020-11-19 Completed [facility] of PFIZER VACCINE 00:00:[address] [facility] SARS-COV-2 COVID-19 2020-11-19 Completed [facility] of PFIZER VACCINE 00:00:[address] [facility] SARS-COV-2 COVID-19 2020-11-19 Completed [facility] of PFIZER VACCINE 00:00:[address] [facility] SARS-COV-2 COVID-19 2020-11-19 Completed [facility] of PFIZER VACCINE 00:00:[address] [facility] SARS-COV-2 COVID-19 2020-11-19 Completed [facility] of PFIZER VACCINE 00:00:[address] [facility] SARS-COV-2 COVID-19 2020-11-19 Completed [facility] of PFIZER VACCINE 00:00:[address] [facility] SARS-COV-2 COVID-19 2020-11-19 Completed [facility] of PFIZER VACCINE 00:00:[address] [facility] SARS-COV-2 COVID-19 2020-11-19 Completed [facility] of PFIZER VACCINE 00:00:[address] [facility] SARS-COV-2 COVID-19 2020-11-19 Completed [facility] of PFIZER VACCINE 00:00:[address] [facility] SARS-COV-2 COVID-19 2020-11-19 Completed [facility]ive [facility] of PFIZER VACCINE 00:00:[address] [facility] SARS-COV-2 COVID-19 2020-11-19 Completed [facility] of PFIZER VACCINE 00:00:[address] [facility] SARS-COV-2 COVID-19 2020-11-19 Completed [facility] of PFIZER VACCINE 00:00:[address] [facility] SARS-COV-2 COVID-19 2020-11-19 Completed [facility]ive [facility] of PFIZER VACCINE 00:00:[address] [facility] SARS-COV-2 COVID-19 2020-11-19 Completed [facility] of PFIZER VACCINE 00:00:[address] [facility] SARS-COV-2 COVID-19 2020-11-19 Completed [facility]ive [facility] of PFIZER VACCINE 00:00:[address] [facility] SARS-COV-2 COVID-19 2020-11-19 Completed [facility] of PFIZER VACCINE 00:00:00 [facility] SARS-COV-2 COVID-19 2020-11-19 Completed [facility]ive [facility]ity of PFIZER VACCINE 00:00:00 [facility] SARS-COV-2 COVID-19 2020-11-19 Completed [facility]ive [facility] of PFIZER VACCINE 00:00:00 [facility] SARS-COV-2 COVID-19 2020-11-19 Completed [facility]ive [facility] of PFIZER VACCINE 00:00:00 [facility] SARS-COV-2 COVID-19 2020-11-19 Completed [facility]ive rsity of PFIZER VACCINE 00:00:00 [facility] SARS-COV-2 COVID-19 2020-11-19 Completed [facility]ive rsity of PFIZER VACCINE 00:00:00 [facility] SARS-COV-2 COVID-19 2020-11-19 Completed [facility]ive [facility] of PFIZER VACCINE 00:00:00 [facility] SARS-COV-2 COVID-19 2020-11-19 Completed [facility]ive [facility] of PFIZER VACCINE 00:00:00 [facility] SARS-COV-2 COVID-19 2020-11-19 Completed [facility]ive [facility] of PFIZER VACCINE 00:00:00 [facility] SARS-COV-2 COVID-19 2020-11-19 Completed [facility]ive [facility] of PFIZER VACCINE 00:00:00 [facility] SARS-COV-2 COVID-19 2020-11-19 Completed [facility]ive [facility]ity of PFIZER VACCINE 00:00:00 [facility] Pneumococcal 2018-07-05 Completed University o f Polysaccharide, [...] 2018-07-05 Completed University o f Polysaccharide, 00:00:00 [facility] ical PPSV23 (PNEUMOVAX) Branch Pneumococcal 2018-07-05 Completed [place] o f Polysaccharide, 00:00:00 [facility] ical PPSV23 (PNEUMOVAX) Branch pneumococcal 2018-06-15 Completed [facility] 23-valent vaccine 19:53:00 Vital Signs Vital Name Observation Time Observation Value Comments Source Systolic blood 2022-12-28 127 mm[Hg] University of pressure 19:49:00 [facility] Diastolic blood 2022-12-28 71 mm[Hg] University o f pressure 19:49:00 [facility] Heart rate 2022-12-28 59 /min University of 19:49:00 [facility] Body temperature 2022-12-28 36.5 [place] University of 19:49:00 [facility] Respiratory rate 2022-12-28 16 /min University of 19:49:00 [facility] Body height 2022-12-28 157.5 cm University of 19:49:00 [facility] Body weight 2022-12-28 111.63 kg University of 19:49:00 [facility] BMI 2022-12-28 45.01 kg/m2 University of 19:49:00 [facility] Oxygen saturation 2022-12-28 98 /min [facility] in Arterial blood 19:49:00 [facility] Pulse oximetry Branch Systolic blood 2022-11-02 124 mm[Hg] University of pressure 19:59:00 [facility] Diastolic blood 2022-11-02 78 mm[Hg] University o f pressure 19:59:00 [facility] Heart rate 2022-11-02 58 /min University of 19:59:00 [facility] Body temperature 2022-11-02 36.78 [place] University of 19:59:00 [facility] Respiratory rate 2022-11-02 16 /min University of 19:59:00 [facility] Body height 2022-11-02 157.5 cm University of 19:59:00 [facility] Body weight 2022-11-02 109.181 kg University of 19:59:00 [facility] BMI 2022-11-02 44.02 kg/m2 University of 19:59:00 [facility] Oxygen saturation 2022-11-02 98 /min University of in Arterial blood 19:59:00 [facility] diane by Pulse oximetry Branch Systolic blood 2022-11-02 122 mm[Hg] University of pressure 14:40:00 [facility] Diastolic blood 2022-11-02 73 mm[Hg] University o f pressure 14:40:00 [facility] Heart rate 2022-11-02 53 /min University of 14:40:00 [facility] Respiratory rate 2022-11-02 19 /min University of 14:40:00 [facility] Oxygen saturation 2022-11-02 98 /min University of in Arterial blood 14:40:00 [facility] diane by Pulse oximetry Branch Body temperature 2022-11-02 36.5 [place] University of 09:55:00 [facility] Systolic blood 2022-10-25 118 mm[Hg] University of pressure 19:30:00 [facility] Diastolic blood 2022-10-25 66 mm[Hg] University o f pressure 19:30:00 [facility] Respiratory rate 2022-10-25 17 /min University of 19:30:00 [facility] Oxygen saturation 2022-10-25 99 /min University of in Arterial blood 19:30:[address] [facility] Pulse oximetry Branch Heart rate 2022-10-25 52 /min University of 12:26:00 [facility] Body temperature 2022-10-25 36.33 [place] University of 12:26:00 [facility] Body height 2022-10-25 157.5 cm University of 12:: [facility] Body weight 2022-10-25 109 kg University of 12: [facility] BMI 2022-10-25 43.95 kg/m2 University of 12:26:00 [facility] Systolic blood 2022-10-25 109 mm[Hg] University of pressure 12:26:00 [facility] Diastolic blood 2022-10-25 83 mm[Hg] University o f pressure 12:26:00 [facility] Heart rate 2022-10-25 52 /min University of 12:26:00 [facility] Body temperature 2022-10-25 36.33 [place] University of 12:26:00 [facility] Respiratory rate 2022-10-25 18 /min University of 12:26:00 [facility] Body height 2022-10-25 157.5 cm University of 12:26:00 [facility] Body weight 2022-10-25 109 kg University of 12:26:00 [facility] BMI 2022-10-25 43.95 kg/m2 University of 12::00 [facility] Oxygen saturation 2022-10-25 100 /min University of in Arterial blood 12:26:00 [place] [facility] P[facility] Systolic blood 2022-10-05 126 mm[Hg] University of pressure 18:51:00 [facility] Diastolic blood 2022-10-05 73 mm[Hg] University o f pressure 18:51:00 [facility] Heart rate 2022-10-05 63 /min University of 18:51:00 [facility] Body temperature 2022-10-05 36.72 [place] University of 18:48:00 [facility] Respiratory rate 2022-10-05 17 /min University of 18:48:00 [facility] Body height 2022-10-05 157.5 cm University of 18:48:00 [facility] Body weight 2022-10-05 107.321 kg University of 18:48:00 [facility] BMI 2022-10-05 43.27 kg/m2 University of 18:48:00 [facility] Oxygen saturation 2022-10-05 96 /min University of in Arterial blood 18:48:00 [facility] diane by Pulse oximetry Branch Systolic blood 2022-10-04 138 mm[Hg] University of pressure 16:09:00 [facility] Diastolic blood 2022-10-04 87 mm[Hg] University o f pressure 16:09:00 [facility] Heart rate 2022-10-04 54 /min University of 16:09:00 [facility] Body temperature 2022-10-04 36.83 [place] University of 16:09:00 [facility] Body height 2022-10-04 157.5 cm University of 16:09:00 [facility] Body weight 2022-10-04 108.455 kg University of 16:09:00 [facility] BMI 2022-10-04 43.73 kg/m2 University of 16:09:00 [facility] Oxygen saturation 2022-10-04 100 /min University of in Arterial blood 16:09:00 [place] [facility] Pulse oxim[facility] Systolic blood 2022-09-29 139 mm[Hg] University of pressure 14:53:00 [facility] Diastolic blood 2022-09-29 81 mm[Hg] University o f pressure 14:53:00 [facility] Heart rate 2022-09-29 53 /min University of 14:53:00 [facility] Body height 2022-09-29 157.5 cm University of 14:53:00 [facility] Body weight 2022-09-29 108.999 kg University of 14:53:00 [facility] BMI 2022-09-29 43.95 kg/m2 University of 14:53:00 [facility] Oxygen saturation 2022-09-29 99 /min University of in Arterial blood 14:53:00 [facility] diane by Pulse oximetry Branch Systolic blood 2022-09-27 123 mm[Hg] University of pressure 16:34:00 [facility] Diastolic blood 2022-09-27 85 mm[Hg] University o f pressure 16:34:00 [facility] Heart rate 2022-09-27 60 /min University of 16:34:00 [facility] Body temperature 2022-09-27 36.67 [place] University of 16:34:00 [facility] Respiratory rate 2022-09-27 20 /min University of 16:34:00 [facility] Body height 2022-09-27 157.5 cm University of 16:34:00 [facility] Body weight 2022-09-27 108.863 kg University of 16:34:00 [facility] BMI 2022-09-27 43.90 kg/m2 University of 16:34:00 [facility] Oxygen saturation 2022-09-27 97 /min University of in Arterial blood 16:34:00 [facility] diane by Pulse oximetry Branch Body temperature 2022-09-21 36.5 [place] University of 15:08:00 [facility] Body height 2022-09-21 157.5 cm University of 15:08:00 [facility] Body weight 2022-09-21 107.956 kg University of 15:08:00 [facility] BMI 2022-09-21 43.53 kg/m2 University of 15:08:00 [facility] Systolic blood 2022-09-20 113 mm[Hg] University of pressure 15:42:00 [facility] Diastolic blood 2022-09-20 76 mm[Hg] University o f pressure 15:42:00 [facility] Heart rate 2022-09-20 57 /min University of 15:42:00 [facility] Body temperature 2022-09-20 36.44 [place] University of 15:42:00 [facility] Body height 2022-09-20 157.5 cm University of 15:42:00 [facility] Body weight 2022-09-20 107.956 kg University of 15:42:00 [facility] BMI 2022-09-20 43.53 kg/m2 University of 15:42:00 [facility] Oxygen saturation 2022-09-20 99 /min University of in Arterial blood 15:42:00 [facility] diane by Pulse oximetry Branch Systolic blood 2022-08-02 135 mm[Hg] University of pressure 14:40:00 [facility] Diastolic blood 2022-08-02 73 mm[Hg] University o f pressure 14:40:00 [facility] Heart rate 2022-08-02 49 /min University of 14:40:00 [facility] Body temperature 2022-08-02 36.22 [place] University of 14:40:00 [facility] Respiratory rate 2022-08-02 18 /min University of 14:40:00 [facility] Body height 2022-08-02 157.5 cm University of 14:40:00 [facility] Body weight 2022-08-02 104.463 kg University of 14:40:00 [facility] BMI 2022-08-02 42.12 kg/m2 University of 14:40:00 [facility] Oxygen saturation 2022-08-02 100 /min University of in Arterial blood 14:40:00 [facility] diane by Pulse oximetry Branch Systolic blood 2022-07-21 122 mm[Hg] University of pressure 21:42:00 [facility] Diastolic blood 2022-07-21 78 mm[Hg] University o f pressure 21:42:00 [facility] Heart rate 2022-07-21 66 /min University of 21:42:00 [facility] Body temperature 2022-07-21 36.94 [place] University of 21:42:00 [facility] Body height 2022-07-21 157.5 cm University of 21:42:00 [facility] Body weight 2022-07-21 102.967 kg University of 21:42:00 [facility] BMI 2022-07-21 41.52 kg/m2 University of 21:42:00 [facility] Oxygen saturation 2022-07-21 100 /min University of in Arterial blood 21:42:00 [place] [facility] Systolic blood 2022-05-27 130 mm[Hg] University of pressure 21:27:00 [facility] Diastolic blood 2022-05-27 86 mm[Hg] University o f pressure 21:27:00 [facility] Heart rate 2022-05-27 54 /min University of 21:27:00 [facility] Body temperature 2022-05-27 36.72 [place] University of 21:27:00 [facility] Body height 2022-05-27 160 cm University of 21:27:00 [facility] Body weight 2022-05-27 101.288 kg University of ::00 [facility] BMI 2022-05-27 39.56 kg/m2 University of :27:00 [facility] Oxygen saturation 2022-05-27 98 /min University of in Arterial blood 21:27:00 [facility]iane by Pulse oximetry Branch Systolic blood 2022-05-17 105 mm[Hg] University of pressure 17:17:00 [facility] Diastolic blood 2022-05-17 71 mm[Hg] University o f pressure 17:17:00 [facility] Heart rate 2022-05-17 48 /min University of 17:17:00 [facility] Body temperature 2022-05-17 37.06 [place] University of 17:17:00 [facility] Body height 2022-05-17 160 cm University of 17:17:00 [facility] Body weight 2022-05-17 102.967 kg University of 17:17:00 [facility] BMI 2022-05-17 40.21 kg/m2 University of 17:17:00 [facility] Oxygen saturation 2022-05-17 99 /min University of in Arterial blood 17:17:00 [place] [facility] Systolic blood 2022-04-15 149 mm[Hg] University of pressure 21:00:00 [facility] Diastolic blood 2022-04-15 93 mm[Hg] University o f pressure 21:00:00 [facility] Heart rate 2022-04-15 47 /min University of 21:00:00 [facility] Respiratory rate 2022-04-15 13 /min University of 21:00:00 [facility] Oxygen saturation 2022-04-15 99 /min University of in Arterial blood 21:00:00 [facility]iane by Pulse oximetry Branch Body temperature 2022-04-15 36.56 [place] University of 18:50:00 [facility] Body height 2022-04-15 160 cm University of 18:50:00 [facility] Body weight 2022-04-15 99.791 kg University of 18:50:00 [facility] BMI 2022-04-15 38.97 kg/m2 University of 18:50:00 [facility] Systolic blood 2022-04-15 139 mm[Hg] University of pressure 17:50:00 [facility] Diastolic blood 2022-04-15 86 mm[Hg] University o f pressure 17:50:00 [facility] Heart rate 2022-04-15 49 /min University of 17:50:00 [facility] Body height 2022-04-15 160 cm University of 17:50:00 [facility] Body weight 2022-04-15 99.338 kg University of 17:50:00 [facility] BMI 2022-04-15 38.79 kg/m2 University of 17:50:00 [facility] Oxygen saturation 2022-04-15 100 /min University of in Arterial blood 17:50:00 [facility] diane by Pulse oximetry Branch Systolic blood 2022-03-12 118 mm[Hg] University of pressure 13:26:00 [facility] Diastolic blood 2022-03-12 79 mm[Hg] University o f pressure 13:26:00 [facility] Heart rate 2022-03-12 48 /min University of 13:26:00 [facility] Body height 2022-03-12 160 cm University of 13:26:00 [facility] Body weight 2022-03-12 99.746 kg University of 13:26:00 [facility] BMI 2022-03-12 38.95 kg/m2 University of 13:26:00 [facility] Oxygen saturation 2022-03-12 100 /min University of in Arterial blood 13:26:00 [place] [facility] Systolic blood 2022-03-10 114 mm[Hg] University of pressure 20:14:00 [facility] Diastolic blood 2022-03-10 75 mm[Hg] University o f pressure 20:14:00 [facility] Heart rate 2022-03-10 69 /min University of 20:14:00 [facility] Body temperature 2022-03-10 36.78 [place] University of 20:14:00 [facility] Body height 2022-03-10 160 cm University of 20:14:00 [facility] Body weight 2022-03-10 99.791 kg University of 20:14:00 [facility] BMI 2022-03-10 38.97 kg/m2 University of 20:14:00 [facility] Oxygen saturation 2022-03-10 100 /min University of in Arterial blood 20:14:[address] [facility] by Pulse oximetry Branch Body height 2022-03-04 160 cm University of 19:56:00 [facility] Body weight 2022-03-04 98.431 kg University of 19:56:00 [facility] BMI 2022-03-04 38.44 kg/m2 University of 19:56:00 [facility] Systolic blood 2022-02-23 129 mm[Hg] University of pressure 14:48:00 [facility] Diastolic blood 2022-02-23 78 mm[Hg] University o f pressure 14:48:00 [facility] Heart rate 2022-02-23 51 /min University 14:48:00 [facility] Body temperature 2022-02-23 36.22 [place] University of 14:48:00 [facility] Respiratory rate 2022-02-23 17 /min University 14:48:00 [facility] Body height 2022-02-23 160 cm per pt University of 14:48:00 [facility] Body weight 2022-02-23 98.657 kg University of 14:48:00 [facility] BMI 2022-02-23 38.53 kg/m2 University 14:48:00 [facility] Oxygen saturation 2022-02-23 98 /min [place] of in Arterial blood 14:48:[address] [facility] by Pulse oximetry Branch Respitory Rate 2018-09-27 [facility] 17:30:00 Systolic (mm Hg) 2018-09-27 [facility] rmann 17:30:00 Diastolic (mm Hg) 2018-09-27 [facility] [facility] ermann 17:30:00 Systolic (mm Hg) 2018-09-27 [facility] rmann 17:00:00 Diastolic (mm Hg) 2018-09-27 [facility] ermann 17:00:00 Respitory Rate 2018-09-27 [facility] [...] 17:20:00 BP Systolic 2018-08-04 153 mm[Hg] Location: LUE; [facility] 11:06:00 Position: Sitting BP Diastolic 2018-08-04 96 mm[Hg] Location: LUE; [facility] 11:06:00 Position: Sitting Height 2018-08-04 63 [in_us] [facility] 11:06:00 Weight 2018-08-04 361 [lb_av] [facility] 11:06:00 Body Mass Index 2018-08-04 63.95 kg/m2 [facility] Calculated 11:06:00 Temperature 2018-08-04 97.4 [degF] Method: Oral [facility] 11:06:00 Heart Rate 2018-08-04 77 /min [facility] 11:06:00 Systolic (mm Hg) 2018-06-15 [facility] [...] (F) 22:00:00 Height 2018-06-13 160.02 cm Oskar Shaffer n 16:57:00 Height 2018-06-13 160.02 cm Oskar Shaffer n 15:48:00 Height 2018-06-13 160.02 cm Oskar Shaffer n 14:19:00 BMI Calculated 2018-06-13 [facility]io 10:34:00 Weight 2018-06-13 Oskar Shaffer n 10:34:00 BP Systolic 2018-05-09 165 mm[Hg] Location: LUE; [facility] 00:00:00 Position: Sitting BP Diastolic 2018-05-09 91 mm[Hg] Location: LUE; [facility] 00:00:00 Position: Sitting Height 2018-05-09 63 [in_us] [facility] 00:00:00 Weight 2018-05-09 354.375 [lb_av] [facility] 00:00:00 Body Mass Index 2018-05-09 62.77 kg/m2 [facility] Calculated 00:00:00 Temperature 2018-05-09 99 [degF] Method: Oral [facility] 00:00:00 Heart Rate 2018-05-09 66 /min [facility] 00:00:00 BP Systolic 2018-02-21 155 mm[Hg] Location: LUE; [facility] 17:49:00 Position: Sitting BP Diastolic 2018-02-21 93 mm[Hg] Location: LUE; [facility] 17:49:00 Position: Sitting Height 2018-02-21 63 [in_us] [facility] 17:49:00 Weight 2018-02-21 355 [lb_av] [facility] 17:49:00 Body Mass Index 2018-02-21 62.89 kg/m2 [facility] Calculated 17:49:00 Temperature 2018-02-21 98.5 [degF] Method: Oral [facility] 17:49:00 Heart Rate 2018-02-21 82 /min [facility] 17:49:00 BP Systolic 2018-01-17 158 mm[Hg] Location: LUE; [facility] 14:18:00 Position: Sitting BP Diastolic 2018-01-17 95 mm[Hg] Location: LUE; [facility] 14:18:00 Position: Sitting Height 2018-01-17 63 [in_us] [facility] 14:18:00 Weight 2018-01-17 354 [lb_av] [facility] 14:18:00 Body Mass Index 2018-01-17 62.71 kg/m2 [facility] Calculated 14:18:00 Temperature 2018-01-17 98.1 [degF] Method: Oral [facility] 14:18:00 Heart Rate 2018-01-17 80 /min [facility] 14:18:00 BP Systolic 2017-12-16 146 mm[Hg] Location: [facility] Physicians 09:28:00 Position: Sitting BP Diastolic 2017-12-16 98 mm[Hg] Location: [facility] Physicians 09:28:00 Position: Sitting Height 2017-12-16 63 [in_us] [facility] 09:28:00 Weight 2017-12-16 365 [lb_av] [facility] 09:28:00 Body Mass Index 2017-12-16 64.66 kg/m2 [facility] Calculated 09:28:00 Temperature 2017-12-16 98.1 [degF] Method: Oral [facility] 09:28:00 Heart Rate 2017-12-16 66 /min [facility] 09:28:00 Procedures Procedure Date / Time Performing Clinician Source Performed PHYSICIAN ORDERS 2022-11-16 05:01:00 Doctor Unassigned, [facility] XR CHEST 1 VW 2022-11-02 10:42:29 Sebastien Hanson [facility] LIPASE 2022-11-02 10:21:00 Sebastien Hanson [facility] TROPONIN I 2022-11-02 10:21:00 Sebastien Hanson [facility] COMP. METABOLIC PANEL 2022-11-02 10:21:00 Sebastien Hanson [facility] ([id number]) [facility] CBC WITH DIFF 2022-11-02 10:21:00 Sebastien Hanson [facility] PROTHROMBIN TIME / INR 2022-11-02 10:21:[address] [facility] N-TERMINAL PRO-BNP 2022-11-02 10:21:00 Sebastien Hanson [facility] CONSENT/REFUSAL FOR 2022-11-02 09:47:07 Doctor Unassigned, [facility] DIAGNOSIS AND TREATMENT [facility] RADIOFREQUENCY 2022-10-25 14:58:00 Glenna [facility] THERMOCOAGULATION OF Medical Bra count includes the [facility] VARICOSE VEINS POCT GLUCOSE (AUTOMATED) 2022-10-25 12:48:00 Michael Manzanares [facility] POCT GLUCOSE (AUTOMATED) 2022-10-25 12:48:00 Michael Manzanares [facility] ASSIGNMENT OF BENEFITS 2022-10-25 11:41:18 Doctor Unassigned, [facility] POCT MOLECULAR STREP 2022-10-04 16:06:00 Anju [facility] POCT SARS-COV-2 ANTIGEN 2022-10-04 00:00:00 Anju Irwin [facility] (BINAX NOW) [facility] [place] MODIFIED BARIUM SWALLOW 2022-09-30 15:10:00 Segundo Michaud [facility] PHYSICIAN ORDERS 2022-09-20 05:01:00 Doctor Unassigned, [facility] NO SHOW OR MISSED 2022-08-12 21:07:22 Doctor Unassmelinda, [facility] APPOINTMENT POLICY [place] [facility] ACKNOWLEDGEMENT REFERRAL- REQUEST/RESPONSE 2022-06-01 06:01:00 Doctor Cynthia , [facility] HB CREATININE SERUM/BLOOD 2022-05-18 20:21:[address] [facility] FOR IMAGING [facility] CT SOFT TISSUE NECK W 2022-05-18 19:30:00 Diana Hopkins [facility] EKG-12 LEAD 2022-04-15 20:41:17 [facility] ABDOMEN PELVIS W 2022-04-15 20:20:16 Chandler Joshi [facility] LIPASE 2022-04-15 19:22:00 [facility] TROPONIN I 2022-04-15 19:22:00 [facility] HEPATIC FUNCTION PANEL 2022-04-15 19:22:00 Chandler Joshi [facility] ([id number]) (ALB,T.PRO,BILI Medical Branch T,BU/BC,ALT,AST,ALK PHOS) BASIC METABOLIC PANEL (NA, 2022-04-15 19:22:00 Chandler Joshi [facility] K, CL, CO2, GLUCOSE, BUN, Medica l Branch CREATININE, CA) CBC WITH DIFF 2022-04-15 19:22:00 [facility] URINALYSIS 2022-04-15 19:22:00 [facility] N-TERMINAL PRO-BNP 2022-04-15 19:22:[address] [facility] CONSENT/REFUSAL FOR 2022-04-15 18:46:02 Doctor Unassigned, [facility] DIAGNOSIS AND TREATMENT [facility] EXTERNAL PROVIDER - ADC 2022-03-23 05:01:00 [facility] CARDIOLOGY [facility] FLU VACC (), 6 2022-03-12 14:03:53 [facility] MO-64 YRS, .5ML, IM, QUAD [place] [facility] (FLUCELVAX) OPHTHALMOLOGY DIAGNOSTIC 2022-03-04 05:01:00 Doctor Unassigned, [facility] TEST [facility] [id number] 2021-05-04 00:00[facility]00 [facility] [id number] 2021-05-04 00:00[facility]00 [facility] [id number] 2021-05-04 00:00:00 [facility] [id number] 2021-05-04 00:00:00 [facility] Arthroscopy of knee with 2015-01-13 05:00:00 Roldan orial Jimmy medial and lateral meniscectomy Operation<sup>1</sup> 2013-06-13 06:00:00 Everton Barr Hysterectomy 2008-06-13 06:00:00 [facility] espino Tubal ligation 1996-06-13 06:00:00 [facility] Operation<sup>3</sup> 1980-06-13 06:00:00 Everton Barr History of section [facility] of Hysterectomy [facility] total History of Cholecystectomy [facility] History of Hernia repair [facility] History of Knee surgery [facility] Plan of Care Planned Activity Planned Date Details Comments Source Future Scheduled 2021-06-[address] [facility] Test 00:00:00 (12+) [code = Medical Center DEPRESSION SCREENING (12+)] Future Scheduled 2021-02-[address] [facility] Test 00:00:00 (#1) [code = Medical Center INFLUENZA VACCINE (#1)] Future Scheduled 2020-12-[address] [facility] Test 00:00:00 (procedure) [code = Medical Center 00983898] Future Scheduled 2018-06-[address] [facility] Test 00:00:00 WELLNESS (YEAR 2 or Medical Center FIRST YEAR if no IPPE) [code = MEDICARE ANNUAL WELLNESS (YEAR 2 or FIRST YEAR if no IPPE)] Future Scheduled [address] [facility] Test 00:00:00 malignant neoplasm of Medica l Center cervix (procedure) [code = 017572964] Future Scheduled 1994 DTAP/TDAP/TD VACCINES CH I [...] es Test 00:00:00 malignant neoplasm of Medica l Center colon (procedure) [code = 552920075] Encounters Start End Encounter Admission Attending Care Care Encounter Source Date/Time Date/Time Type Type Clinicians Facility Department ID 2021-04-14 Emergency [facility] [id number] Univers 05:36:15 ity [facility] 2021-04-13 Emergency [facility] [id number] Univers 19:11:52 ity [facility] 2021-04-13 Emergency [facility] [id number] Univers 07:22:27 ity [facility] 2021-04-13 Emergency [facility] [id number] Univers 04:07:45 ity of [facility] 2021-04-12 Emergency [facility] [id number] Univers 16:56:52 ity of [facility] 2021-04-12 Emergency [facility] [id number] Univers 08:32:00 ity of [facility] 2021-04-12 Emergency [facility] [id number] Univers 06:29:54 ity of [facility] 2021-04-11 Emergency [facility] [id number] Univers 22:42:20 ity of [facility] 2021-04-10 Emergency [facility] [id number] Univers 16:12:53 ity of [facility] 2021-04-10 Emergency [facility] [id number] Univers 14:48:53 ity of [facility] 2021-04-10 Emergency [facility] [id number] Univers 02:01:13 ity of [facility] 2023-03-16 2023-03-16 Outpatient R HIPOLITOROBERTA PINKILNeha [facility] [id number] Univers 11:30:00 11:30:00 ATAMARLONOVPIYUSHL ity [facility] 2023-03-05 2023-03-05 Outpatient R MERLIN ROBERTAILNeha [facility] [id number] Univers 20:00:00 20:00:00 ROBERTA BOYERILL ity [facility] 2023-02-17 2023-02-17 Outpatient R GLENNA, [facility] [id number] Univers 13:45:00 13:45:00 MICHAEL ity of [facility] 2023-01-27 2023-01-27 Outpatient R HAMLET, [facility] [id number] Univers 12:00:00 12:00:00 LEANNE ity of [facility] 2023-01-14 2023-01-14 Outpatient R [facility] [id number] Univers 09:00:00 09:00:00 ity [facility] 2023-01-03 2023-01-03 Office Virginia Morgan [facility] 1.2.840.114 [id number] Univers 15:00:00 16:00:00 Visit Clinic, Speech Voice/Swallow FRANCISCO 350.1.13.10 ity [id number] [address] 2023-01-03 2023-01-03 Outpatient R BILLY [place] [facility] [id number] Univers 15:00:00 15:00:00 GRACIELAVIRGINIA TSE ity [facility] 2022-12-28 2022-12-[address] [facility] [id number] Univers 14:40:00 15:17:27 , MINI lloyd [facility] 2022-12-28 2022-12-28 Office [facility] 1.2.840.114 [id number] Univers 14:40:00 15:17:27 Visit , Mini CHRISTIAN 350.1.13.10 ity of [place] 4.2.7.2.686 [place] SHEA?BLEA [phone] [place] tania DASHEY [address] MEDICAL OFFICE BUILDING 2022-12-22 2022-12-22 [facility] [id number] Univers 13:20:00 13:20:00 , MINI [facility] 2022-11-27 2022-11-28 Emergency E VISHNYAKOVA MHBL MHBL [id number] MHBL 21:03:00 01:30:00 , AGUSTO 2022-11-16 2022-11-16 Script Coordinator Fan, Adc Lab Main [facility] 1.2.8 40.114 [id number] Univers 15:30:00 15:45:00 Visit Alisa Malone 350.1.13.10 ity dl [place] [id number] [place] YUNG [address] BUILDING 2022-11-16 2022-11-16 Outpatient R BHUPINDER [facility] [id number] Univers 15:30:00 15:30:00 ALISA tyler [facility] 2022-11-16 2022-11-16 Orders Doctor BANKS 1.2.840.114 [id number] Univers 00:00:00 00:00:00 Only Unassigned, LEO 350.1.13.10 ity of [place] [facility] 4.2.7.2.[id number] [facility] 009 Branch 2022-11-11 2022-11-11 Outpatient Nirmal MANZANARES [facility] [id number] Univers 15:15:00 15:09:34 MICHAEL ity [facility] 2022-11-02 2022-11-[address] [facility] [id number] Univers 15:20:00 15:52:24 , MINI it y [facility] 2022-11-02 2022-11-[address] [facility] [id number] Univers 15:20:00 15:52:24 , MINI it y [facility] 2022-11-02 2022-11-02 Office [facility] 1.2.840.114 [id number] Univers 15:20:00 15:52:24 [facility] , [facility] 350.1.13.10 ity of [place] [facility] 4.2.7.2.686 [place] SHEA?BLEA [id number] [address] MEDICAL OFFICE BUILDING 2022-11-02 2022-11-02 [facility] 1.2.840.114 [id number] Univers 05:07:00 09:42:00 Chang CABELLO 350.1.13.10 i ty [facility] [place].2.[place] [id number] [facility] [address] 2022-10-28 2022-10-28 Outpatient Nirmal MANZANARES [facility] [id number] Univers 08:45:19 23:59:00 [facility] 2022-10-28 2022-10-28 Nurse MYNOR Albarado 1.2.840.114 [id number] Univers 00:00:00 00:00:00 Triage Luiz BAILEY 350.1.13.10 ity of [facility] 4.2.7.2.[id number] [facility] 019 Branch 2022-10-25 2022-10-25 Outpatient [facility] [id number] Univers 06:59:00 14:45:00 MICHAEL ity of [facility] 2022-10-25 2022-10-25 Hospital MEME Manzanares 1.2.840.114 [id number] Univers 06:59:00 14:45:00 Encounter Michael BAILEY 350.1.13.10 ity of [facility] 4.2.7.2.[id number] [facility] 104 Branch 2022-10-25 2022-10-25 Surgery MEME Manzanares 1.2.840.114 [id number] Univers 09:00:00 11:27:00 Michael BAILEY 350.1.13.10 it y of [facility] 4.2.7.2.[id number] [facility] 103 Branch 2022-10-25 2022-10-25 Orders Doctor MYNOR 1.2.840.114 [id number] Univers 00:00:00 00:00:00 Only Unassigned, LEO 350.1.13.10 ity of [place] [facility] 4.2.7.2.[id number] [facility] 009 Branch 2022-10-14 2022-10-14 Telephone Sandeep [facility] 1.2.126.083 [id number] Univers 00:00:00 00:00:00 Diana HEALTH 350.1.13.10 it y of [place] 4.2.7.2.686 [place]au as SHEA?BLEA [id number] [address] MEDICAL OFFICE [facility] 2022-10-07 2022-10-07 Patient Alida [facility] 1.2.840.114 [id number] Univers 00:00:00 00:00:00 Secure Msg Anju HEALTH 350.1.13.10 ity of [place] 4.2.7.2.686 [place] as SHEA?BLEA [id number] [address] MEDICAL OFFICE BUILDING 2022-10-05 2022-10-05 Office Merlin [facility] 1.2.055.012 [id number] Univers 13:30:00 14:00:00 Visit Eddie Buckley MULTISPEC 350.1.13.10 ity of [place] [id number] [facility] AND WORKMAN 0[address] [facility] 2022-10-05 2022-10-05 Outpatient R EDDIE BOYER [facility] [id number] Univers 13:30:00 13:30:00 HIPOLITOMARLONOLVIN ROBERTAMABEL ity [facility] 2022-10-05 2022-10-05 [facility] 1.2.465.105 [id number] Univers 00:00:00 00:00:00 Diana HEALTH 350.1.13.10 it y of [place] 4.2.7.2.686 [place]au as SHEA?BLEA [id number] [address] OFFICE [facility] 2022-10-04 2022-10-04 Office [facility] 1..840.114 [id number] Univers 11:00:00 11:30:00 Visit Anju HEALTH 350.1.13.10 it y of [place] 4.2.7.2.686 [place] as SHAE?BLEA [id number] [address] OFFICE [facility] 2022-10-04 2022-10-04 Outpatient R ALIDA [facility] [id number] Univers 11:00:00 11:00:00 ANJU tyler [facility] 2022-10-04 2022-10-04 [facility] 1..191.644 [id number] Univers 00:00:00 00:00:00 Diana HEALTH 350.1.13.10 it y of [place] 4.2.7.2.686 [place] as SHEA?BLEA [id number] [address] OFFICE [facility] 2022-09-30 2022-09-30 Outpatient R JASWANT [facility] [id number] Univers 09:39:49 23:59:00 SEGUNDO tyler of [facility] 2022-09-30 2022-09-30 [facility] TRACEY Michaud 1..840.114 [id number] Univers 09:30:00 23:59:00 Encounter Segundo Jackman HEALTH 350.1.13.10 ity of CLINICS 4.2.7.2.[address] [place] [id number] [facility] 807 [address] 2022-09-30 2022-09-30 Ancillary Swallows, Gal Speech Modifie d Barium [facility]ERS[facility] 1.2.840.114 [id number] Univers 09:30:00 15:41:20 Visit Alexandra Nevarez 350.1.13.10 ity of [place] 4.2.7.2.686 Mau as BANK [id number] [facility] BLDG. [address] 2022-09-29 2022-09-29 Outpatient R LESLIE [facility] [id number] Univers 10:00:00 10:22:07 HERLINDA ity of [facility] 2022-09-29 2022-09-29 Office [facility] 1.2.840.114 [id number] Univers 10:00:00 10:22:07 Visit Herlinda CABELLO 350.1.13.10 i ty [facility] 4.2.7.2.[place] [id number] [place] dicberenice NAL 059 [facility] 2022-09-27 2022-09-27 Outpatient R HAMLET [facility] [id number] Univers 11:30:00 12:30:45 [facility] ity [facility] 2022-09-27 2022-09-27 Office [facility] 1.2.840.114 [id number] Univers 11:30:00 12:00:00 Visit Leanne StemCyte 350.1.13.10 it y of [place].2.[place] [id number] [facility] [address] OFFICE [facility] 2022-09-27 2022-09-27 Patient Sandeep [facility] 1.2.840.114 [id number] Univers 00:00:00 00:00:00 Secure Ms [employer] 350.1.13.10 ity of [facility] 4.2.7.2.686 [place] SHEA?BLEA [phone] [place] dical HARDYEY 044 [facility] OFFICE [facility] 2022-09-21 2022-09-21 Office [facility] 1.2.840.114 [id number] Univers 10:15:00 10:45:00 Visit Segundo SINGH 350.1.13.10 i ty of [place]7.2.[id number] [facility] [address] 2022-09-21 2022-09-21 Outpatient R JASWANT [facility] [id number] Univers 10:15:00 10:15:00 SEGUNDO itdick [facility] 2022-09-20 2022-09-20 Script Coordinator Lab, Ang - Db [facility] 1.2.840.1 [id number] Univers 11:15:00 11:30:00 Visit Malaikadee Diana [facility] 350.1.13.10 ity of [facility] 4.2.7.2.686 [place] SHEA?BLEA [id number] [place] ashishberenice CHAD [address] MEDICAL OFFICE BUILDING 2022-09-20 2022-09-20 Outpatient R SANDEEP [facility] [id number] Univers 10:30:00 11:07:20 DIANA tyler [facility] 2022-09-20 2022-09-20 Office Sandeep [facility] 1.2.840.114 [id number] Univers 10:30:00 11:07:20 Visit Diana [facility] 350.1.13.10 it y of [facility] 4.2.7.2.686 [place] SHEA?BLEA [id number] [place] ashishberenice DASH [address] MEDICAL OFFICE BUILDING 2022-09-20 2022-09-20 Orders Doctor MYNOR 1.2.840.114 [id number] Univers 00:00:00 00:00:00 Only Unassigned, LEO 350.1.13.10 ity of [place] [facility] 4.2.7.2.[id number] [facility] 009 [address] 2022-09-08 2022-09-08 Telephone Leslie [facility] 1.2.741.963 [id number] Univers 00:00:00 00:00:00 Herlinda L HEALTH 350.1.13.10 it y of [place] [id number] [facility] [address] OFFICE BUILDING 2022-09-07 2022-09-07 Outpatient R HOMER [facility] [id number] Univers 12:36:14 23:59:00 SENDIL ity [facility] 2022-08-18 2022-08-18 Script Coordinator Fan, Adc Lab Main [facility] 1.2.8 40.114 [id number] Univers 09:15:00 09:30:00 Visit Manpreet Judd IRINEO 350.1.13.10 ity of [place].2.[place] [id number] Me dical NAL 353 [facility] 2022-08-18 2022-08-18 Outpatient R MANPREET JUDD [facility] [id number] Univers 09:15:00 09:15:00 ity of [facility] 2022-08-12 2022-08-12 [facility] [id number] Univers 15:30:00 15:53:[address] [facility] 2022-08-12 2022-08-12 Orders Doctor MYNOR 1.2.840.114 [id number] Univers 00:00:00 00:00:00 Only Unassigned, LEO 350.1.13.10 ity of [facility] 4.2.7.2.686 Mau as [id number] [address] 2022-08-03 2022-08-03 Out[facility] [id number] Univers 07:40:03 23:59:[address] [facility] 2022-08-02 2022-08-02 Out[facility] [id number] Univers 16:20:00 16:20:[address] [facility] 2022-08-02 2022-08-02 Out[facility] [id number] Univers 08:40:00 09:31:[address] [facility] 2022-08-02 2022-08-02 Office [facility] 1.2.840.114 [id number] Univers 08:40:00 09:31:52 Visit Herlinda CABELLO 350.1.13.10 i ty of [facility] 4.2.7.2.[place] [id number] Me dical NAL 059 [facility] 2022-07-27 2022-07-27 Outpatient [facility] [id number] Univers 11:20:00 11:20:00 HERLINDA itdick of [facility] 2022-07-23 2022-07-23 Telephone [facility] 1.2.150.996 [id number] Univers 00:00:00 00:00:00 [facility] 350.1.13.10 it y of [facility] 4.2.7.2.686 [place] as SHEA?BLEA [id number] [address] OFFICE [facility] 2022-07-22 2022-07-22 Telephone [facility] 1.2.728.092 [id number] Univers 00:00:00 00:00:00 Danitza CABELLO 350.1.13.10 ity of [place] [phone] [place] [id number] [facility] 2022-07-21 2022-07-21 [facility] [id number] Univers 15:30:00 16:12:28 DIANA tyler [facility] 2022-07-21 2022-07-21 [facility] 1.2.840.114 [id number] Univers 15:30:00 16:12:28 Visit [facility] 350.1.13.10 [facility] 4.2.7.2.686 Mau as SHEA?BLEA [phone] [address] OFFICE [facility] [address] 2022-07-19 2022-07-19 Outpatient R [facility] [id number] Univers 09:30:00 09:30:00 DIANA tyler [facility] 2022-07-15 2022-07-15 Telephone SousaDEMETRIOBertha [id number] Univers 00:00:00 00:00:00 Gianna VAZQUEZ 350.1.13.10 i ty [place] [phone] [address] 2022-06-18 2022-06-18 Patient [facility] 1.2.840.114 [id number] Univers 00:00:00 00:00:00 Secure Msg [employer] 350.1.13.10 ity of [place] 4.2.7.2.686 Mau as SHEA?BLEA [phone] [place]ania BONILLA 0[address] [facility] OFFICE BUILDING 2022-06-01 2022-06-01 Orders Doctor MYNOR 1.2.840.114 [id number] Univers 00:00:00 00:00:00 Only Unassigned, LEO 350.1.13.10 ity of [place] [facility] 4.2.7.2.686 Mau as [phone] [address] 2022-05-31 2022-05-31 Telephone Pipes, [facility] 1.2.416.301 [id number] Univers 00:00:00 00:00:00 LeanneYoics 350.1.13.10 it y of [place] [id number] [address] OFFICE [facility] 2022-05-27 2022-05-27 Office Pipes, [facility] 1.2.840.114 [id number] Univers 15:30:00 16:00:00 Visit Hi[employer] Tickets 350.1.13.10 it y of [place] [id number] [address] OFFICE [facility] 2022-05-27 2022-05-27 Outpatient R BARTOLOME, [facility] [id number] Univers 15:30:00 15:30:00 LEANNE ity [facility] 2022-05-24 2022-05-24 Telephone Pipes, [facility] 1.2.617.113 [id number] Univers 00:00:00 00:00:00 Hi[employer] Tickets 350.1.13.10 it [place] of [place] [id number] [address] OFFICE [facility] 2022-05-18 2022-05-18 Outpatient R SANDEEP [facility] [id number] Univers 13:00:25 23:59:00 DIANA ity of [facility] 2022-05-18 2022-05-18 [facility] Sandeep [facility] 1.2.840.114 [id number] Univers 13:00:00 23:59:00 Encounter Dianafaraz CABELLO 350.1.13.10 ity of [place].2.[place] [id number] [facility] [address] 2022-05-18 2022-05-18 Telephone [facility] 1.2.149.064 [id number] Univers 00:00:00 00:00:00 Diana HEALTH 350.1.13.10 it y of [place] 4.2.7.2.686 Mau as SHEA?BLEA [id number] [address] MEDICAL OFFICE [facility] 2022-05-17 2022-05-17 [facility] [id number] Univers 11:45:00 23:59:00 DIANA tyler [facility] 2022-05-17 2022-05-17 Outpatient [facility] [id number] Univers 15:30:00 15:30:00 DIANA nayeli [facility] 2022-05-17 2022-05-17 [facility] 1.2.840.114 [id number] Univers 11:00:00 11:46:11 Visit Diana CHRISTIAN 350.1.13.10 it y of [place] 4.2.7.2.686 [place]au as SHEA?BLEA [phone] [address] OFFICE [facility] 2022-04-15 2022-04-15 Emergency [facility] 1.2.619.106 [id number] Univers 13:52:00 16:33:00 Chandler CABELLO 350.1.13.10 i ty of Ramiro MOLINAABEBA [place].2.686 [place] [id number] [facility] [address] 2022-04-15 2022-04-15 Outpatient R VAMSI [facility] [id number] Univers 13:00:00 14:26:35 SAKINA tyler [facility] 2022-04-15 2022-04-15 [facility] [id number] Univers 13:00:00 14:26:35 SAKINA tyler [facility] 2022-04-15 2022-04-15 [facility] 1.2.840.114 [id number] Univers 13:00:00 14:26:35 Visit Sakina Price [facility] 350.1.13.10 i ty [facility] 4.2.7.2.686 [place] as SHEA?BLEA [id number] [address] 2022-04-12 2022-04-12 Outpatient R PIPES, [facility] [id number] Univers 16:00:00 16:00:00 [facility] 2022-04-12 2022-04-12 Telephone [facility] 1.2.155.211 [id number] Univers 00:00:00 00:00:00 Qiangjun ARROYO 350.1.13.10 ity [facility] 4.2.7.2.[place] [phone] [address] 2022-04-07 2022-04-07 Telephone [facility] 1.2.318.729 [id number] Univers 00:00:00 00:00:00 Qiangjun ARROYO 350.1.13.10 ity [facility] 4.2.[place] [id number] [address] 2022-04-06 2022-04-06 Outpatient R PIPES, [facility] [id number] Univers 11:00:00 11:00:00 [facility] 2022-03-23 2022-03-23 Orders Doctor MYNOR 1.2.840.114 [id number] Univers 00:00:00 00:00:00 Only Unassigned, LEO 350.1.13.10 ity of [place] [facility] 4.2.7.2.686 Mau as [phone] [address] 2022-03-17 2022-03-17 Telephone [facility] 1.2.714.022 [id number] Univers 00:00:00 00:00:00 Qiangjun [place] 350.1.13.10 ity [facility] 4.2.7.[place] [id number] [address] 2022-03-12 2022-03-12 Outpatient R JOAQUINA, [facility] [id number] Univers 14:50:14 23:59:00 DANITZA mancia [facility] 2022-03-12 2022-03-12 Outpatient R JOAQUINA, [facility] [id number] Univers 15:00:00 15:00:00 DANITZA tyler o [facility] 2022-03-12 2022-03-12 Outpatient R JOAQUINA, [facility] [id number] Univers 15:00:00 15:00:00 DANITZA tyler o [facility] 2022-03-12 2022-03-12 Imm/Inj Nurse, Mitul Bush [facility] 1.2.840.114 [id number] Univers 09:20:00 09:40:00 Visit Lucian Crespo HEALTH 350.1.13.10 ity of [place] 4.2.7.2.686 Mau as SHEA?BLEA [id number] [address] MEDICAL OFFICE [facility] 2022-03-12 2022-03-12 Office Kathy [facility] 1.2.840.114 [id number] Univers 08:30:00 09:00:00 Visit Albert Pinger 350.1.13.10 it y of [place] 4.2.7.2.686 [place]au as SHEA?BLEA [id number] [facility] [address] MEDICAL OFFICE [facility] 2022-03-10 2022-03-10 Outpatient R SANDEEP [facility] [id number] Univers 15:00:00 15:58:31 DIANA tyler of [facility] 2022-03-10 2022-03-10 Office Sandeep [facility] 1.2.840.114 [id number] Univers 15:00:00 15:58:31 Visit [employer] 350.1.13.10 it y of [place] 4.2.7.2.686 [place]au as SHEA?BLEA [id number] [address] MEDICAL OFFICE [facility] 2022-03-09 2022-03-09 Laboratory Only, Adc Test [facility] 1.2.840. 114 [id number] Univers 07:30:00 07:45:00 Only Joaquina, Qiangjun [place] 350.1.13.10 ity of [place] 4.2.7.2.686 [facility] [id number] [facility] [address] 2022-03-09 2022-03-09 Outpatient R [facility] [id number] Univers 07:30:00 07:30:00 ity [facility] 2022-03-09 2022-03-09 Outpatient R [facility] [id number] Univers 07:30:00 07:30:00 ity [facility] 2022-03-09 2022-03-09 Out[facility] [id number] Univers 07:30:00 07:30:00 DANITZA tyler o f [facility] 2022-03-06 2022-03-06 Outpatient [facility] [id number] Univers 13:50:00 13:50:[address] [facility] 2022-03-04 2022-03-04 Outpatient [facility] [id number] Univers 14:30:00 15:40:[address] [facility] 2022-03-04 2022-03-04 Office [facility] 1.2.840.114 [id number] Univers 14:30:00 15:40:13 Visit Alice [facility] 350.1.13.10 i ty of [place] 4.2.7.2.686 [facility] [id number] [facility] [address] 2022-03-04 2022-03-04 Outpatient [facility] [id number] Univers 14:30:00 14:30:[address] [facility] 2022-03-04 2022-03-04 Orders Doctor MYNOR 1.2.840.114 [id number] Univers 00:00:00 00:00:00 Only Unassigned, LEO 350.1.13.10 ity of [place] [facility] 4.2.7.2.[id number] [facility] [address] 2022-03-04 2022-03-04 Telephone [facility] 1.2.807.206 [id number] Univers 00:00:00 00:00:00 Danitza CABELLO 350.1.13.10 ity of [facility] 4.2.7.2.[place] [id number] Wv dical NAL 9 [facility] 2022-02-23 2022-02-23 Outpatient R JOAQUINA, [facility] [id number] Univers 10:00:00 10:13:55 DANITZA lloydy o [facility] 2022-02-23 2022-02-23 Office [facility] 1.2.840.114 [id number] Univers 10:00:00 10:13:55 Visit Danitza CABELLO 350.1.13.10 ity of [place].2.7.2.[place] [id number] [address] 2022-02-23 2022-02-23 Outpatient R [facility] [id number] Univers 10:00:00 10:13:55 DANITZA tyler o [facility] 2022-02-23 2022-02-23 Outpatient [facility] [id number] Univers 10:00:00 10:13:55 DANITZA tyler o [facility] 2022-02-21 2022-02-21 Emergency X ROHIT JUARES [facility] ERT 1 [id number] Univers 01:50:00 04:03:00 ROHIT JUARES [facility] 2022-02-21 2022-02-21 Emergency [facility] 1.2.033.099 [id number] Univers 01:50:00 04:03:00 Rohit IRINEO 350.1.13.10 i ty of [facility] 4.2.7.2.[place] [id number] [facility] [address] 2022-02-21 2022-02-21 Emergency X JUARESDARIONROHIT [facility] ERT 1 [id number] Univers 01:50:00 04:03:00 JUARESDARIONROHITERROL tyler [facility] 2022-02-21 2022-02-21 Emergency X BLANQUITA ROHIT [facility] ERT 1 [id number] Univers 01:50:00 04:03:00 BLANQUITA ROHIT nayeli [facility] 2022-01-22 2022-01-22 Telephone Coronel, [facility] 1.2.044.889 [id number] Univers 00:00:00 00:00:00 Jolanta CBAELLO 350.1.13.10 ity of [place].2.7.2.[place] [id number] Wv dical NAL 059 [facility] 2022-01-04 2022-01-04 Script Coordinator Draw, Clc-Bls Lab [facility] 1.2.8 40.114 [id number] Univers 14:45:00 15:00:00 Visit Pipes, Leanne HEALTH 350.1.13.10 ity of [place].2.[place] [id number] [facility] [address] OFFICE [facility] 2022-01-04 2022-01-04 Outpatient R PIPES, [facility] [id number] Univers 14:45:00 14:45:00 LEANNE ity [facility] 2022-01-04 2022-01-04 Office Pipes, [facility] 1.2.840.114 [id number] Univers 13:30:00 14:00:00 Visit Leanne HEALTH 350.1.13.10 it y of [place].2.[place] [id number] [address] OFFICE [facility] 2022-01-04 2022-01-04 Outpatient R PIPES, [facility] [id number] Univers 13:30:00 13:30:00 LEANNE ity [facility] 2022-01-01 2022-01-01 Emergency X [facility] ERT [id number] Univers 13:41:00 16:08:00 SHEYLA ity [facility] 2022-01-01 2022-01-01 Emergency [facility], [facility] 1.2.325.110 [id number] Univers 13:41:00 16:08:00 Sheyla CABELLO 350.1.13.10 ity of [place].2.7.2.[place] [id number] [address] 2022-01-01 2022-01-01 Emergency X [facility] ERT [id number] Univers 13:41:00 16:08:00 SHEYLA itdick [facility] 2022-01-01 2022-01-01 Telephone Joaquina, [facility] 1.2.001.342 [id number] Univers 00:00:00 00:00:00 Danitza IRINEO 350.1.13.10 ity [facility] 4.2.7.2.[place] [id number] Wv dical NAL 059 [facility] 2022-01-01 2022-01-01 Case Homer [facility] 1.2.840.114 [id number] Univers 00:00:00 00:00:00 Management Jolanta CABELLO 350.1.13.10 ity of [place] 4.2.7.2.686 [place] [id number] Wv dical NAL 059 [facility] 2021-12-29 2021-12-29 Emergency EM [facility] [id number] [facility] 13:32:00 21:02:00 Elizabeth 88 [facility] 2021-12-29 2021-12-29 Emergency [id number] [facility] 13:32:00 21:02:00 Elizabeth [id number] [facility] 2021-12-28 2021-12-28 Ancillary Shahnaz Ramos [facility] 1.2.84 0.114 [id number] Univers 14:30:00 15:15:00 Visit Karli Tuttle 350.1.13.10 ity [facility] 4.2.7.2.[place] [id number] Wv dical NAL 179 [facility] 2021-12-26 2021-12-26 Emergency [facility] ERT [id number] Univers 16:19:00 19:13:00 TRAVIS ity [facility] 2021-12-26 2021-12-26 Emergency [facility] 1.2.440.809 [id number] Univers 16:19:00 19:13:00 Travis CABELLO 350.1.13.10 ity [facility] 4.2.7.2.[place] [id number] [address] 2021-12-23 2021-12-23 Outpatient [facility] [id number] Univers 11:00:00 11:40:19 KARLI ity [facility] 2021-12-23 2021-12-23 Ancillary Shahnaz Ramos [facility] 1.2.84 0.114 [id number] Univers 11:00:00 11:40:19 Visit Karli Tuttle 350.1.13.10 ity of [place] 4[place]2.7.2.686 [place] [id number] Wv dical NAL 179 [facility] 2021-12-23 2021-12-23 Outpatient [facility] [id number] Univers 11:00:00 11:40:19 KARLI ity [facility] 2021-12-21 2021-12-21 Ancillary Shahnaz Ramos [facility] 1.2.84 0.114 [id number] Univers 11:00:00 11:40:13 Visit Karli Tuttle 350.1.13.10 ity of [place] 4[place].7.2.686 [place] [id number] W[place] dical NAL 179 [facility] 2021-12-13 2021-12-13 Emergency [facility] ERT [id number] Univers 11:06:00 12:07:00 CHRISTOPHER it y [facility] 2021-12-13 2021-12-13 Emergency [facility] 1.2.047.665 [id number] Univers 11:06:00 12:07:00 Kanajl REDMONDCRISTAL 350.1.13.10 ity of [place] 4.2.7.2.686 [facility] [id number] [address] 2021-12-08 2021-12-08 Outpatient [facility] [id number] Univers 15:15:00 16:25:41 KARLI ity [facility] 2021-12-08 2021-12-08 Ancillary Shahnaz Ramos [facility] 1.2.84 0.114 [id number] Univers 15:15:00 16:25:41 Visit Karli Tuttle Neha NYLACRISTAL 350.1.13.10 ity of [facility] 4.2.7.2.686 [place] [facility] [id number] [place] dical [facility] [address] BUILDING 2021-12-08 2021-12-08 Outpatient [facility] [id number] Univers 15:15:00 16:25:41 KARLI tyler [facility] 2021-11-25 2021-11-25 Office Pipes, [facility] 1.2.840.114 [id number] Univers 13:00:00 13:30:00 Visit [facility] 350.1.13.10 it y of [place] 4.2.7.2.686 [place] [id number] [address] OFFICE BUILDING 2021-11-25 2021-11-25 Outpatient [facility] [id number] Univers 13:00:00 13:00:00 [facility] 2021-11-25 2021-11-25 Outpatient R HAMLET, [facility] [id number] Univers 13:00:00 13:00:[address] [facility] 2021-11-19 2021-11-19 Emergency [facility] ERT [id number] Univers 07:57:00 11:43:00 ALEXANDRA dick [facility] 2021-11-19 2021-11-19 Emergency [facility]CL[facility] 1.2.338.171 [id number] Univers 07:57:00 11:43:00 Alexanrda CABELLO 350.1.13.10 i ty of [facility] 4.2.7.2.686 [place] [id number] [address] 2021-11-19 2021-11-19 Emergency X [facility] ERT [id number] Univers 07:57:00 11:43:00 ALEXANDRA tyler [facility] 2021-10-02 2021-10-02 Outpatient [facility] [id number] Univers 15:15:00 15:15:00 KARLITERE tyler [facility] 2021-10-02 2021-10-02 Outpatient [facility] [id number] Univers 15:15:00 15:15:00 KARLI tyler [facility] 2021-10-02 2021-10-02 Outpatient R MARRY, [facility] [id number] Univers 15:15:00 15:15:00 KARLI ity [facility] 2021-09-29 2021-09-29 Ancillary Randa Shelton [facility] 1.2.840 .114 [id number] Univers 09:30:00 10:30:00 Visit Karli Tuttle 350.1.13.10 ity [facility] 4.2.7.2.[place] [id number] Wv dical NAL [address] BUILDING 2021-09-24 2021-09-24 Orders Doctor MYNOR 1.2.840.114 [id number] Univers 00:00:00 00:00:00 Only Unassigned, LEO 350.1.13.10 ity of [place] [facility] 4.2.7.2.[id number] [facility] [address] 2021-09-21 2021-09-21 Office Pipes, [facility] 1.2.840.114 [id number] Univers 10:30:00 11:00:00 Visit [facility] 350.1.13.10 it y of [place]2.[place].2.686 [place] [id number] [facility] [address] OFFICE BUILDING 2021-09-21 2021-09-21 Outpatient R PIPES, [facility] [id number] Univers 10:30:00 10:30:00 LEANNE ity [facility] 2021-09-15 2021-09-15 Outpatient R PIPES, [facility] [id number] Univers 13:04:54 23:59:00 LEANNE ity [facility] 2021-09-15 2021-09-15 Hospital Pipes, [facility] 1.2.840.114 [id number] Univers 13:04:54 23:59:00 Encounter Leanne CABELLO 350.1.13.10 ity of [facility] 4.2.7.2.[place] [id number] [facility] [address] 2021-09-15 2021-09-15 Outpatient R MARRY [facility] [id number] Univers 09:15:00 11:45:08 KARLI ity [facility] 2021-09-15 2021-09-15 Ancillary Nichole Hassan [facility] 1.2.840. 114 [id number] Univers 09:15:00 11:45:08 Visit Karli Tuttle [facility] 350.1.13.10 ity of [place] 4.2.7.2.[place] [phone] W[place] dical NAL [address] BUILDING 2021-09-08 2021-09-08 Office Pipes, [facility] 1.2.840.114 [id number] Univers 15:30:00 16:13:09 Visit Leanne HEALTH 350.1.13.10 it y of [place].2.686 [place] [id number] [facility] [address] OFFICE BUILDING 2021-09-08 2021-09-08 Outpatient R PIPES, [facility] [id number] Univers 15:30:00 16:13:09 LEANNE ity [facility] 2021-09-08 2021-09-08 Outpatient R PIPES, [facility] [id number] Univers 15:30:00 16:13:09 [facility] ity [facility] 2021-09-08 2021-09-08 Outpatient R PIPES, [facility] [id number] Univers 15:30:00 15:30:00 [facility] ity [facility] 2021-09-08 2021-09-08 Outpatient R PIPES, [facility] [id number] Univers 11:30:00 11:30:00 [facility] [id number] ity [facility] 2021-08-31 2021-08-31 Outpatient R LUCIAN CRESPO [facility] [id number] Univers 13:00:00 17:05:09 ity [facility] 2021-08-31 2021-08-31 Office Lucian Crespo [facility] 1.2.840.114 [id number] Univers 13:00:00 17:05:09 Visit S HEALTH 350.1.13.10 it y of FAMILY 4.2.7.2.686 [facility] [id number] Med ical [place] [address] [facility] 2021-08-31 2021-08-31 Outpatient R LUCIAN CRESPO [facility] [id number] Univers 13:00:00 17:05:09 ity of [facility] 2021-08-29 2021-08-29 Emergency X Zan LEON [facility] ERT [id number] Univers 19:28:00 23:57:00 ity of [facility] 2021-08-29 2021-08-29 Emergency Orville Zan [facility] 1.2.840.114 [id number] Univers 19:28:00 23:57:00 Hannah CABELLO 350.1.13.10 i ty of [place] 4.2.7.2.686 [facility] [id number] [address] 2021-08-29 2021-08-29 Emergency X ORVILLEZan [facility] ERT [id number] Univers 19:28:00 23:57:00 ity of [facility] 2021-08-29 2021-08-29 Emergency X ORVILLEZan [facility] ERT [id number] Univers 19:28:00 23:57:00 ity of [facility] 2021-08-15 2021-08-15 Emergency X JAVIER [facility] ERT [id number] Univers 07:01:00 08:35:00 ALEXANDRA ity [facility] 2021-08-15 2021-08-15 Emergency [facility] 1.2.375.604 [id number] Univers 07:01:00 08:35:00 Alexandra CABELLO 350.1.13.10 i ty of [place] 4.2.7.2.686 [facility] [id number] [facility] [address] 2021-08-15 2021-08-15 Orders Doctor BANKS 1.2.840.114 [id number] Univers 00:00:00 00:00:00 Only Unassigned, LEO 350.1.13.10 ity of [place] [facility] 4.2.7.2.[id number] [facility] [address] 2021-07-28 2021-07-28 [facility] [id number] Univers 14:00:00 14:00:00 LEANNE ity [facility] 2021-07-08 2021-07-09 Emergency [facility] ERT [id number] Univers 23:37:00 03:02:00 INA ity [facility] 2021-07-08 2021-07-09 Emergency [facility] 1.2.770.723 [id number] Univers 23:37:00 03:02:00 Ina REDMONDCRISTAL 350.1.13.10 i ty [place].2.7.2.[place] [id number] [facility] [address] 2021-06-07 2021 Inpatient RIVKA Col[facility] [id number] [facility] 14:31:00 14:58:00 Bryant Lincoln [facility] 2021-06-01 2021-06-01 Outpatient R CHERIE [facility] [id number] Univers 10:00:00 10:00:00 ity of [facility] 2021-06-01 2021-06-01 Outpatient R CHERIE, [facility] [id number] Univers 10:00:00 10:00:00 ity [facility] 2021-05-24 2021-05-25 [facility] [id number] Univers 21:13:00 03:13:00 VTMARKUS ity [facility] 2021-05-24 2021-05-25 [facility] [id number] Univers 21:13:00 03:13:00 Sebastien Cohen IRINEO 350.1.13.10 [place] [id number] [facility] [address] 2021-05-24 2021-05-24 Orders Doctor MYNOR [id number] Univers 00:00:00 00:00:00 Only Unassigned, LEO 350.1.13.10 ity of [place] [facility] 4.2.7.2.[id number] [facility] 009 [address] 2021-05-04 2021-05-06 Inpatient [facility] [employer] [facility] MEDI.01 BP00 [id number] [facility] 09:55:00 09:55:00 , Giuliano 03 [facility] 2021-05-01 2021-05-01 [facility] [id number] Univers 00:00:00 00:00:00 [facility] 350.1.13.10 [place] [id number] [address] OFFICE BUILDING 2021-04-30 2021-04-30 Outpatient [facility] [employer] 3DAY BP0 [id number] [facility] 00:00:00 23:59:00 , Giuliano 77 [facility] 2021-04-30 2021-04-30 [facility] [id number] Univers 13:15:00 13:56:37 JANNETH tyler [facility] 2021-04-30 2021-04-30 Office [facility] [id number] Univers 13:07:45 13:56:37 Visit Jannetheduarda CABELLO 350.1.13.10 i [place] [id number] [place] [address] 2021-04-30 2021-04-30 [facility] [id number] Univers 13:15:00 13:15:00 JANNETH tyler [facility] 2021-04-27 2021-04-27 Office [facility] 1.2.840.114 [id number] Univers 13:06:36 13:36:36 Visit [facility] 350.1.13.10 [place] [id number] [address] OFFICE BUILDING 2021-04-27 2021-04-27 [facility] [id number] Univers 13:00:00 13:00:00 LEANNE dick [facility] 2021-04-24 2021-04-24 [facility] TRACEY Carcamo 1.2.840.114 [id number] Univers 14:07:05 23:59:00 Encounter Gaby Y HEALTH 350.1.13.10 ity of CLINICS 4.2.7.2.[address] [facility] [id number] [address] 2021-04-24 2021-04-24 Outpatient R CARLOS ALBERTO [facility] [id number] Univers 14:06:52 14:06:52 GABY ity of [facility] 2021-04-24 2021-04-24 [facility] MANUEL Carcamo 1.2.840.114 [id number] Univers 14:06:52 14:06:52 Encounter Gaby Y HEALTH 350.1.13.10 ity of [facility] 4.2.7.2.68[facility] s [phone] [address] 2021-04-15 2021-04-15 [facility] [id number] Univers 12:57:00 16:07:00 ALEXANDRA tyler [facility] 2021-04-15 2021-04-15 Emergency [facility] [id number] Univers 12:57:00 16:07:00 Alexandra [facility] 350.1.13.10 i ty of [place] 4.2.7.[address] [place] [address] [phone] [place] [id number] [place] 2021-04-15 2021-04-15 Telephone Renee Banks [facility] 1.2.840.114 [id number] Univers 00:00:00 00:00:00 Alvares HEALTH 350.1.13.10 it y of FAMILY 4.2.7.2.[address] [facility] [id number] Med ical [place] [address] [place] [address] 2021-04-15 2021-04-15 Telephone Renee Banks [facility] 1.2.840.114 [id number] Univers 00:00:00 00:00:00 Alvares HEALTH 350.1.13.10 it y of FAMILY [id number] [facility] [phone] Med ical [place] 044 [facility] 2021-04-14 2021-04-14 Office Renee Banks [facility] 1.2.840.114 [id number] Univers 10:38:18 11:08:18 Visit [facility] 350.1.13.10 it y of FAMILY 4.2.7.2.686 [facility] [id number] Med ical [place] [address] [facility] 2021-04-14 2021-04-14 Outpatient R RENEE BANKS [facility] [id number] Univers 11:00:00 11:00:00 ity [facility] 2021-04-14 2021-04-14 Outpatient R RENEE BANKS [facility] [id number] Univers 11:00:00 11:00:00 ity [facility] 2021-04-09 2021-04-09 Outpatient R RAUL [facility] [id number] Univers 09:00:00 09:00:00 JANNETH ity [facility] 2021-04-01 2021-04-01 Outpatient R LUCIAN CRESPO [facility] [id number] Univers 13:30:00 13:30:00 ity [facility] 2021-03-22 2021-03-23 Emergency X [facility] ERT [id number] Univers 21:39:00 01:59:00 INA y [facility] 2021-03-22 2021-03-23 Emergency X [facility] ERT [id number] Univers 21:39:00 01:59:00 INA ity [facility] 2021-03-22 2021-03-23 Emergency X [facility] ERT [id number] Univers 21:39:00 01:59:00 INA y [facility] 2021-03-22 2021-03-23 Emergency [place], [facility] [id number] Univers 21:39:00 01:59:00 Ina Cabello 350.1.13.10 i ty of [place] 4.2.7.2.686 [facility] [id number] [facility] [address] 2021-03-22 2021-03-22 Orders Doctor BANKS 1.2.840.114 [id number] Univers 00:00:00 00:00:00 Only Unassigned, LEO 350.1.13.10 ity of [place] [facility] 4.2.7.2.[id number] [facility] [address] 2021-03-17 2021-03-17 Urgent Carlos Alberto [facility] 1.2.840.114 [id number] Univers 20:34:07 20:52:59 Care [facility] 350.1.13.10 it y of [place] 4.2.7.2.686 [place] Shea?Blea [phone] [place] tania bonilla [address] [facility] 2021-03-17 2021-03-17 Outpatient R CARLOS ALBERTO [facility] [id number] Univers 20:40:00 20:40:00 [facility] 2021-03-02 2021-03-02 Outpatient R HAMLET [facility] [id number] Univers 16:30:00 16:30:00 [facility] 2021-03-02 2021-03-02 Office Lucian Crespo [facility] 1.2.840.114 [id number] Univers 15:14:52 15:54:52 Visit [facility] 350.1.13.10 it y of [place].2.686 [place] [facility] [id number] Med ical [place] 044 [facility] 2021-03-02 2021-03-02 Office [facility] 1.2.840.114 [id number] Univers 13:18:08 13:48:08 Visit [facility] 350.1.13.10 it y [place].686 [place] [phone] [facility] [address] 2021-02-11 2021-02-11 Outpatient R HOMER [facility] [id number] Univers 13:00:00 13:00:[address] [facility] 2021-02-09 2021-02-10 Emergency [facility] 1.2.103.815 [id number] Univers 19:31:00 01:06:00 Alexandra Cabello 350.1.13.10 i ty of [place] [id number] [facility] [address] 2021-02-05 2021-02-05 Outpatient R MARRY [facility] [id number] Univers 11:00:00 11:00:00 KARLI dick [facility] 2021-01-29 2021-01-29 Outpatient R MARRY [facility] [id number] Univers 10:15:00 11:14:29 KARLI tyler [facility] 2021-01-29 2021-01-29 Outpatient R MARRY [facility] [id number] Univers 10:15:00 11:14:29 KARLITERE tyler [facility] 2021-01-23 2021-01-23 Outpatient R MARRY [facility] [id number] Univers 09:00:00 09:00:00 [facility] 2021-01-23 2021-01-23 Outpatient R MARRY [facility] [id number] Univers 09:00:00 09:00:00 [facility] 2021-01-20 2021-01-20 Outpatient R CARLOS ALBERTO [facility] [id number] Univers 11:00:00 11:00:[address] [facility] 2021-01-19 2021-01-19 Outpatient R CORONEL [facility] [id number] Univers 13:30:00 13:30:[address] [facility] 2021-01-15 2021-01-15 Outpatient R [facility] [id number] Univers 10:15:00 10:15:[address] [facility] 2021-01-06 2021-01-06 Outpatient R TUTTLE, [facility] [id number] Univers 10:15:00 10:15:00 [facility] 2020-12-30 2020-12-30 Outpatient R TUTTLE, [facility] [id number] Univers 09:00:00 09:00:00 [facility] 2020-12-23 2020-12-23 Outpatient R LUCIANPALLAVI BALLARD [facility] [id number] Univers 09:45:00 09:45:00 itdick [facility] 2020-12-11 2020-12-11 Outpatient R MARRY [facility] [id number] Univers 15:45:00 15:45:00 [facility] 2020-12-11 2020-12-11 Outpatient R MARRY [facility] [id number] Univers 15:00:00 15:00:00 KARLITERE tyler [facility] 2020-12-10 2020-12-10 Outpatient R HIEU [facility] [id number] Univers 12:20:00 12:20:00 COLIN dick [facility] 2020-12-10 2020-12-10 Outpatient R HIEU [facility] [id number] Univers 12:20:00 11:53:33 COLIN dick [facility] 2020-12-09 2020-12-09 Outpatient R MARRY [facility] [id number] Univers 14:45:00 14:45:00 [facility] 2020-12-05 2020-12-05 Outpatient R HAMLET [facility] [id number] Univers 00:00:00 00:00:00 [facility] 2020-12-04 2020-12-04 Outpatient R MARRY [facility] [id number] Univers 10:00:00 13:56:58 [facility] 2020-12-04 2020-12-04 Outpatient R MARRY [facility] [id number] Univers 10:00:00 10:00:00 [facility] 2020-12-01 2020-12-01 Outpatient R CHERIEADWOAED [facility] [id number] Univers 09:30:00 09:30:[address] [facility] 2020-11-24 2020-11-24 Outpatient R BARTOLOMESUSSY [facility] [id number] Univers 11:30:00 11:30:00 [facility] 2020-11-24 2020-11-24 Outpatient R PIPSUSSY [facility] [id number] Univers 11:00:00 11:00:00 [facility] 2020-11-20 2020-11-20 Outpatient R MARRY [facility] [id number] Univers 14:30:00 16:02:40 [facility] 2020-11-20 2020-11-20 Outpatient R [facility] [id number] Univers 14:30:00 14:30:[address] [facility] 2020-11-19 2020-11-19 Outpatient R HIEU [facility] [id number] Univers 12:20:00 12:21:37 [facility] 2020-11-19 2020-11-19 Outpatient R HIEU [facility] [id number] Univers 12:20:00 12:20:00 [facility] 2020-11-19 2020-11-19 Outpatient R [facility] [id number] Univers 10:40:00 10:40:[address] [facility] 2020-11-06 2020-11-06 Outpatient R MARRY [facility] [id number] Univers 13:00:00 13:00:00 [facility] 2020-10-28 2020-11-04 Inpatient Rosalia Carmichael [facility] [id number] [facility] 02:49:00 12:45:00 00 [facility] 2020-10-29 2020-10-29 Inpatient [facility] [id number] [facility] 21:50:40 21:50:40 00 [facility] 2020-10-28 2020-10-28 Orders Doctor BANKS 1.2.840.114 [id number] 00:00:00 00:00:00 Only Unassigned, LEO 350.1.13.10 [place] [facility] 4.2.7.2.686 [id number] 2020-10-27 2020-10-27 Inpatient HCAPM H[facility] [id number] [facility] 22:18:01 22:18:01 40 [facility] 2020-10-21 2020-10-21 Outpatient R LUCIAN PALLAVI [facility] [id number] Univers 14:00:00 14:00:[address] [facility] 2020-10-21 2020-10-21 Outpatient R LUCIAN [facility] [id number] Univers 09:45:00 09:45:[address] [facility] 2020-10-202020-10-20 Outpatient R CHERIEADWOAED [facility] [id number] Univers 13:30:00 13:30:[address] [facility] 2020-10-20 2020-10-20 Telephone [facility] [employer] [facility] 1.2.840.114 [id number] 00:00:00 00:00:00 S HEALTH 350.1.13.10 FAMILY 4.2.7.2.686 [facility] [id number] [place] [address] [facility] 2020-10-14 2020-10-14 Emergency X LANDAVERDE, [facility] ERT [id number] Univers 10:11:00 13:36:[address] [facility] 2020-09-29 2020-09-29 Outpatient R CHERIE LUCIAN [facility] [id number] Univers 14:30:00 14:30:[address] [facility] 2020-09-23 2020-09-23 [facility] [id number] Univers 11:00:00 11:00:[address] [facility] 2020-09-17 2020-09-17 [facility] [id number] Univers 08:30[facility]00 [facility] 2020-09-13 [facility] 1.2.840.114 [id number] Univers 00:00:00 00:00:00 January PRIMARY 350.1.13.10 it y of CARE 4.2.7.2.686 Kristie s JANIE [id number] [place] [address] [place] [address] 2020-09-04 2020-09-12 [facility] REBEKA [id number] Univers 13:37:00 15:16:[address] [facility] 2020-09-11 2020-09-11 Outpatient R CHERIE LUCIAN [facility] [id number] Univers 11:30:00 11:30:[address] [facility] 2020-08-26 2020-08-29 Inpatient X JEANNIE MORAES, [facility] MPU [id number] Univers 23:57:00 16:50:[address] [facility] 2020-08-14 2020-08-14 Outpatient LUCIAN ARELLANO [facility] [id number] Univers 11:00:00 11:33:22 ity [facility] 2020-08-14 2020-08-14 Outpatient R LUCIAN CRESPO [facility] [id number] Univers 11:00:00 11:00:00 ity [facility] 2020-07-15 2020-07-15 Outpatient LUCIAN ARELLANO [facility] [id number] Univers 08:30:00 08:[facility] 2020-07-12 2020-07-12 Emergency X HERRERA, [facility] ERT [id number] Univers 14:02:00 18:26:[address] [facility] 2020-07-15 2020-06-25 Inpatient [facility] DAYS [id number] [facility] 09:00:00 16:57:22 , Giuliano 22 [facility] 2020-05-02 2020-05-07 Inpatient [facility] ENDO [id number] [facility] 13:00:00 23:36:24 , Giuliano 99 [facility] 2020-04-17 2020-04-17 Outpatient Nirmal CUEVAS [facility] [id number] Univers 08:30:00 08:30:[address] [facility] 2019-12-14 2019-12-14 Outpatient Nirmal IRWIN [facility] [id number] Univers 07:40:00 07:40:[address] [facility] 2019-09-10 2019-09-10 Outpatient Nirmal CUEVAS [facility] [id number] Univers 14:30:00 14:30:[address] [facility] 2019-07-27 2019-07-27 Outpatient Nirmal GODWIN [facility] [id number] Univers 16:18:21 23:59:[address] [facility] 2019-05-04 2019-05-04 Outpatient Nirmal HANSON [facility] [id number] Univers 00:55:57 00:55:[address] 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 Surgery Physici Samaria FATIMA Specialty ans 2018-06-13 2018-06-15 Inpatient [facility] [id number] Memoria 10:15:00 20:49:[address] [place] [address] 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 2018-04-06 2018-04-06 RADHA Shultz UTP [id number] [place] 12:00:00 12:00:00 t; PHILL MORAES NP P hysici PHILL, BOX 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 MACHINE 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 HELPER ans 2018-02-21 2018-02-21 Appointtyson MORAES, UTP [place] [id number] [place] 13:30:00 13:30:00 t; PHILL MORAES NP Surgery P hysici PHILL, BOX BLANK MACHINE OPERATOR HELPER Specialty ans 2018-01-17 2018-01-17 AppointRADHA Knapp [place] [id number] [place] 15:00:00 15:00:00 t; PHILL MORAES NP Surgery P hysici PHILL, BOX BLANK MACHINE OPERATOR HELPER Specialty ans 2018-01-06 2018-01-06 Appointtyson [facility] [id number] [place] 10:30:00 10:30:00 t; DEUCE Jacobson Phys ici [address] ans [address] 2017-12-16 2017-12-16 Appointmen RADHA GREENBERG [id number] [place] 09:15:00 09:15:00 t; KUSHAL GREENBERG M.D. Surgery Physiccarly FATIMA M.D. Specialty ans Results Test Description Test Time Test Comments Results Result Comments Source TROPONIN I 2022-11-02 11:12:06 Test Item Value Reference Range Interpretation Comme nts TROPONIN I (test code = 0015752138) <=0.034 FAVIAN (test code = FAVIAN) Reference (Normal) Range (defined by the 99th percentile reference limit): <= 0.034 ng/mL Note: Cardiac troponin begins to rise 3-4 hours after the onset of ischemia. Repeat in 4-6 hours if the sample was drawn within 3-4 hours of the onset of the symptom and found normal. Diagnosis of myocardial injury is made with acute changes in cTn concentrations with at least one serial sample above the 99th percentile upper reference limit (URL), taken together with the patient's clinical presentation. Biotin has been reported to cause a negative bias, interpret results relative to patient's use of biotin. Lab Interpretation (test code = Normal 26006-1) [facility] / [id number] 11:11:05 Test Item Value Reference Range Interpretation Comments PROTIME PATIENT (test 12.7 See_Comment [Auto mated message] code = 5964-2) The system ROVOP generated this result transmitted ref erence range: 12.0 - 1 4.7 Seconds. The re ference range was not u sed to interpret this result as normal/abnor mal. INR (test code = 6301-6) 1.0 Nor mal INR <1.1; Warfarin Therap eutic range 2.0 to 3. 0 or 2.5 to 3.5, dep ending upon the indica tions. Lab Interpretation (test Normal code = 60896-9) [facility] [id number] 11:09:02 Test Item Value Reference Range Interpretation Comments NT-proBNP (test code = 34 pg/mL <=125 8301486765) FAVIAN (test code = FAVIAN) Biotin has been reported to cause a negative bias, interpret results relative to patient's use of biotin. Lab Interpretation (test Normal code = 35231-1) [facility]. METABOLIC PANEL (32869)2022-11-02 11:00:44 Test Item Value Reference Range Interpretation Comments NA (test code = 143 mmol/L 135-145 8164348437) K (test code = 4.0 mmol/L 3.5-5.0 1485313160) CL (test code = 105 mmol/L 98-108 6820886962) CO2 TOTAL (test code 29 mmol/L 23-31 = 9805867189) AGAP (test code = 9 2-16 0064565312) BUN (test code = 19 mg/dL 7-23 7775842261) GLUCOSE (test code = 83 mg/dL 70-110 3106861406) CREATININE (test code 0.69 mg/dL 0.50-1.04 = 3686749649) TOTAL BILI (test code 0.7 mg/dL 0.1-1.1 = 1983136280) CALCIUM (test code = 9.1 mg/dL 8.6-10.6 7727754661) T PROTEIN (test code 7.0 g/dL 6.3-8.2 = 1361499930) ALBUMIN (test code = 4.1 g/dL 3.5-5.0 0012738291) ALK PHOS (test code = 71 U/L 34-122 6460852294) ALTv (test code = 12 U/L 5-35 1742-6) AST(SGOT) (test code 21 U/L 13-40 = 8302579279) eGFR (test code = 91.2 mL/min/1.73m2 5765517762) FAVIAN (test code = FAVIAN) Association of Glomerular Filtration Rate (GFR) and Staging of Kidney Disease* + + +- +| GFR (mL/min/1.73 m2) ?| With Kidney Damage ?| ?Without Kidney Damage+ ------+ ----+ ------+| ?>90 ?| ?Stage one ?| ? Normal ?+ -+ + -+| ?60-89 ?| ?Stage two ?| ? Decreased GFR ? + + +- +| ?30-59 ?| ?Stage three ?| ? Stage three ? + + +- +| ?15-29 ?| ?Stage four ? | ? Stage four ?+ -+ + -+| ?<15 (or dialysis) ? ?| ?Stage five ? | ? Stage five ?+ -+ + -+ *Each stage assumes the associated GFR level has been in effect for at least three months. ?Stages 1 to 5, with or without kidney disease, indicate chronic kidney disease. Notes: Determination of stages one and two (with eGFR >59mL/min/1.73 m2) requires estimation of kidney damage for at least three months as defined by structural or functional abnormalities of the kidney, manifested by either:Pathological abnormalities or Markers of kidney damage (including abnormalities in the composition of the blood or urine or abnormalities in imaging tests). [facility]wood[facility]IP[facility], [id number] 11:00:03 Test Item Value Reference Range Interpretation Comments LIPASE (test code = 6695725088) 40 U/L 0-220 Lab Interpretation (test code = Normal 68989-5) [facility] WITH [id number] 10:50:46 Test Item Value Reference Range Interpretation Comments WBC (test code = 5.55 See_Comment [Automated 2621-2) message] The sy stem which generated this result transmitted reference range : 4.30 - 11.10 10*3/?L. The reference range was not used to interpret this result as normal/abnormal . RBC (test code = 4.35 See_Comment [Automated 080-0) message] The sy stem which generated this result transmitted reference range : 3.93 - 5.25 10*6/?L. The reference range was not used to interpret this result as normal/abnormal . HGB (test code = 13.2 g/dL 11.6-15.0 718-7) HCT (test code = 40.2 % 35.7-45.2 4544-3) MCV (test code = 92.4 fL 80.6-95.5 787-2) MCH (test code = 30.3 pg 25.9-32.8 785-6) MCHC (test code = 32.8 g/dL 31.6-35.1 786-4) RDW-SD (test code = 45.8 fL 39.0-49.9 22620-5) RDW-CV (test code = 13.3 % 12.0-15.5 788-0) PLT (test code = 198 See_Comment [Automated 777-3) message] The sy stem which generated this result transmitted reference range : 166 - 358 10*3/ ?L. The reference r gulshan was not used to interpret this result as normal/abnormal . MPV (test code = 11.5 fL 9.5-12.9 69323-2) NRBC/100 WBC (test 0.0 See_Comment [Automat ed code = 4158839243) message] The system which generated this result transmitted reference range : 0.0 - 10.0 /100 WBCs. The refer ence range was not u sed to interpret th is result as normal/abnormal . NRBC x10^3 (test code See_Comment [Auto mated = 6132087013) message] The s ystem which generated this result transmitted reference range : 10*3/?L. The reference range was not used to interpret this result as normal/abnormal . GRAN MAT (NEUT) % 58.4 % (test code = 770-8) IMM GRAN % (test code 0.50 % = 5828577266) LYMPH % (test code = 33.2 % 736-9) MONO % (test code = 5.0 % 5905-5) EOS % (test code = 2.7 % 713-8) BASO % (test code = 0.2 % 706-2) GRAN MAT x10^3(ANC) 3.24 10*3/uL 1.88-7.09 (test code = 8164872780) IMM GRAN x10^3 (test 0.03 10*3/uL 0.00-0.06 code = 5542870931) LYMPH x10^3 (test code 1.84 10*3/uL 1.32-3.29 = 731-0) MONO x10^3 (test code 0.28 10*3/uL 0.33-0.92 L = 742-7) EOS x10^3 (test code = 0.15 10*3/uL 0.03-0.39 711-2) BASO x10^3 (test code 0.01-0.07 = 704-7) Lab Interpretation Abnormal (test code = 23813-5) [facility] GLUCOSE (AUTOMATED)2022-10-25 12:55:54 Test Item Value Reference Range Interpretation Comments POCT GLU (test code = 9385358101) 72 mg/dL 70-110 Lab Interpretation (test code = Normal 52075-1) [facility] GLUCOSE (AUTOMATED)2022-10-25 12:55:54 Test Item Value Reference Range Interpretation Comments POCT GLU (test code = 7384329335) 72 mg/dL 70-110 Lab Interpretation (test code = Normal 15865-6) [facility] SARS-COV-2 ANTIGEN (BINAX NOW)2022-10-04 16:33:00 Test Item Value Reference Range Interpretation Comments POCT SARS-COV-2 ANTIGEN (test Not Detected Not Detected code = 79793-1) On board controls acceptable Yes with C Line (test code = 3574) [facility] SARS-COV-2 ANTIGEN (BINAX NOW)2022-10-04 16:33:00 Test Item Value Reference Range Interpretation Comments POCT SARS-COV-2 ANTIGEN (test Not Detected Not Detected code = 05480-5) On board controls acceptable Yes with C Line (test code = 3574) [facility] MOLECULAR [id number] 16:14:00 Test Item Value Reference Range Interpretation Comments POCT Molecular Strep (test code = Negative Negative 26880-9) Lab Interpretation (test code = Normal 00085-6) [facility] MOLECULAR [id number] 16:14:00 Test Item Value Reference Range Interpretation Comments POCT Molecular Strep (test code = Negative Negative 03095-6) Lab Interpretation (test code = Normal 62569-8) [facility] [id number] 03:15:54 Test Item Value Reference Range Interpretation Comments POCT Creatinine (test code = 0.6 mg/dL 0.5-1.2 0195638308) Lab Interpretation (test code = Normal 48592-7) [facility] CT ABD PELVIS [id number] 18:31:[address] [facility] : 1975 Sex: FPatient Name: KELLE CALDERÓN Unit No: [id number] EXAMS: CPT CODE: [id number] CT ABD PELVIS W/CONT 15110 Location of dictation: B2 CT of the abdomen and pelvis with intravenous contrast History:Pain Contrast -100 mL of Isovue-300 IV contrast was given. Oral contrast was given Contrast phase- abdomen and pelvis including all of kidneys Reconstructions - coronal and sagittal planes Automated exposure reduction (Auto mA/Smart mA) was utilized in [...] mass or fluid collection. 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 IMPRESSION: 1. Comparison made to 2021. 2. No acute findings or changes in the abdomen or pelvis. 3. Colonic diverticulosis without diverticulitis. 4. 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 5. Enlarged fatty liver. at 1831 Reported and signed by: Agueda Loving M.D. [facility]: Elizabeth Leonard MD [address] : 1 08/10/1974 Age: 46 Sex: F [place] [address] Loc: P.ERS Exam Date: 12/29/2021 Status: REG ER PH: FAX: PAGE 1 Signed Report (CONTINUED) Patient Name: KELLE CALDERÓN Unit No: [id number] EXAMS: CPT CODE: [id number] CT ABD PELVIS W/CONT 19062 (Continued) CC: Elizabeth Shelton MD Tech nologist: Odalys Lubin CTDI: 9.64 DLP: 574 Trscr Dt/Tm: 12/29/2021 (1830) by:AlisonC Printed Date/Time: 12/29/2021 (183) [facility] Leonard MD [address] DOB: 1975 Age: 46 Sex: F [place] [address] Loc: P.ERS Exam Date: 12/29/2021 Status: REG ER PH: FAX: PAGE 2 Signed ReportUA RFLX MICR CULT IF [id number] 15:12:00 Test Item Value Reference Range Interpretation [...] SQU) Indication for culture: Flank PainUR HCG [id number] 15:12:00 Test Item Value Reference Range Interpretation Comments UR HCG QUAL (test code = HCGQLU) NEGATIVE NEGATIVE Indication for culture: Flank PainCOMPREHENSIVE METABOLIC [id number] 15:10:00 Test Item Value Reference Range Interpretation [...] Reference Range Feb code = ALKP) 2020 [id number] 15:10:00 Test Item Value Reference Range Interpretation Comments LIPASE (test code = 25 U/L 12-53 N Please n ote: New LIP) Reference Range Jul 2020 [id number] 15:10:00 Test Item Value Reference Range Interpretation Comments TROPONIN-I (test < 2.5 pg/mL 27.36-66.23 L Please note : Units and code = TROPI) Reference Rang e have changedFeb 3, 2 021 CBC W/AUTO [id number] 14:43:00 Test Item Value Reference Range Interpretation [...] BA#) 0.01 x10 3/uL 0.0-0.20 N PLATELET [id number] 13:37:00 Test Item Value Reference Range Interpretation Comments PLATELET COUNT (test code = PLT) 105 x10 3/uL 150-440 L [id number] 12:21:00 Test Item Value Reference Range Interpretation Comments GLUBED (test code = GLUBED) 92 MG/DL 70-105 N [id number] 07:19:00 Test Item Value Reference Range Interpretation Comments GLUBED (test code = GLUBED) 82 MG/DL 70-105 N BASIC METABOLIC [id number] 02:12:00 Test Item Value Reference Range Interpretation [...] New = CA) Reference Range Jul 2020 [id number] 02:12:00 Test Item Value Reference Range Interpretation Comments MAGNESIUM (test code = 1.6 mg/dL 1.6-2.6 N Pleas e note: New MAG) Reference Range Jul 2020 RECOLLECTCBC W/AUTO [id number] 00:39:00 Test Item Value Reference Range Interpretation [...] MEAN PLATELET VOLUME Test not 8.9-12.4 THE MARISOL LYZER WAS (test code = MPV) performed [...] 0.01 x10 3/uL 0.0-0.20 N = BA#) [id number] 20:11:00 Test Item Value Reference Range Interpretation Comments GLUBED (test code = GLUBED) 88 MG/DL 70-105 N [id number] 17:39:00 Test Item Value Reference Range Interpretation Comments GLUBED (test code = GLUBED) 64 MG/DL 70-105 L [id number] 16:16:00 Test Item Value Reference Range Interpretation Comments GLUBED (test code = GLUBED) 74 MG/DL 70-105 N [id number] 11:55:00 Test Item Value Reference Range Interpretation Comments MAGNESIUM (test code = 1.6 mg/dL 1.6-2.6 N Pleas e note: New MAG) Reference Range Jul 2020 [id number] 07:56:00 Test Item Value Reference Range Interpretation Comments GLUBED (test code = GLUBED) 75 MG/DL 70-105 N BASIC METABOLIC [id number] 05:44:00 Test Item Value Reference Range Interpretation [...] CA) Reference Range Jul 2020 CBC W/AUTO [id number] 05:30:00 Test Item Value Reference Range Interpretation [...] = BA#) 0.02 x10 3/uL 0.0-0.20 N [id number] 21:05:00 Test Item Value Reference Range Interpretation Comments GLUBED (test code = GLUBED) 70 MG/DL 70-105 N [id number] 19:10:00 Test Item Value Reference Range Interpretation Comments GLUBED (test code = GLUBED) 70 MG/DL 70-105 N COVID 19 INHOUSE [id number] 18:26:00 Test Item Value Reference Range Interpretation Comments COVID 19 INHOUSE AG POSITIVE NEGATIVE A Critical Value reported (test code = toFirst Name:BASIL COOL [id number]) Last Name:TORSTEN NAVA READ BACK AND V Geremias BuenoLABCARMEN, on 1 08/08/20, @ 1826. - CT ABD PELVIS [id number] 13:57:[address] [facility] : 1975 Sex: FPatient Name: KELLE CALDERÓN Unit No: [id number] EXAMS: CPT CODE: [id number] CT ABD PELVISW/CONT 09006 EXAM: CT abdomen and pelvis with contrast [...] Mild to moderate sigmoid and descending colonic diverticulosis is seen, without diverticulitis. The appendix is normal. Sleeve gastrectomy is noted, without obvious leak. No abnormal bowel wall thickening or bowel obstruction is identified. Bones/soft tissues: No fracture or evidence of bony neoplastic process. 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 No definite hernia is seen. IMPRESSION: 1. Normal appendix. No evidence of acute intra-abdominal abnormality. Name: KELLE CALDERÓN [facility] Phys: Sabino Hurst MD [address] : 1975 Age: 45 Sex: [place] [address] Loc: P.ERS ExamDate: 06/07/2021 Status: REG ER PH: FAX: PAGE 1 Signed Report (CONTINUED) Patient Name: KELLE CALDERÓN Unit No: [id number] EXAMS: CPT CODE: [id number] CT ABD PELVIS W/CONT 07606 (Continued) 2. Previous gastric sleeve. Enteric contrast [...] (1357) by:[email or web address] Printed Date/Time: 06/07/2021 (1400) Name: KELLE CALDERÓN [facility] Phys: Sabino Hurst MD [address] : 1975 Age: 45 Sex: [place] [address] Loc: P.ERS Exam Date: 06/07/2021 Status: REG ER PH: FAX: PAGE 2 Signed ReportUA RFLX MICR CULT IF [id number] 13:36:00 Test Item Value Reference Range Interpretation [...] MUCU) Indication for culture: Suprapubic PainUR HCG [id number] 13:36:00 Test Item Value Reference Range Interpretation Comments UR HCG QUAL (test code = HCGQLU) NEGATIVE NEGATIVE Indication for culture: Suprapubic PainBASIC METABOLIC [id number] 12:58:00 Test Item Value Reference Range Interpretation [...] CA) Reference Range Jul 2020 LIVER FUNCTION [id number] 12:58:00 Test Item Value Reference Range Interpretation [...] code = ALKP) Reference Range Jul 2020 [id number] 12:58:00 Test Item Value Reference Range Interpretation Comments LIPASE (test code = 29 U/L 12-53 N Please n ote: New LIP) Reference Range Jul 2020 CBC W/AUTO [id number] 12:43:00 Test Item Value Reference Range Interpretation [...] = BA#) 0.01 x10 3/uL 0.0-0.20 N [id number] 19:35:00 Test Item Value Reference Range Interpretation Comments SURGICAL (test code = SR) RUN DATE: 05/06/21 [facility] - LAB PAGE 1 RUN TIME: 1934 Specimen Inquiry RUN USER: INTERFACE PATIENT: KELLE CALDERÓN LOC: Kieran Ellison U #: [id number] AGE/SX: 45/F ROOM: [facility] RE05/04/21[facility] DR: Giuliano Abdullahi MD : 75 BED: 1 DIS: 05/06/21 STATUS: DIS IN TLOC: SPEC #: [id number] RECD: 05/05/21 STATUS: JACQUELINE RE #: [id number] INA: 05/04/21 [facility] DR: Giuliano Abdullahi MD ENTERED: 05/05/21 SP TYPE: SURGICAL OTHR DR: Alisa Beaver MD ORDERED: 29983/2, 34179/4, ANATOMIC SPEC HISTOLOGY: TISSUE ID BLK PCS [...] in cassette B.CM/ks Technical component performed at [facility] [facility], [facility], [address] CONTINUED ON NEXT PAGE RUN DATE: 05/06/21 [facility] - LAB PAGE 2 RUN TIME: 1934 Specimen Inquiry RUN USER: INTERFACE SPEC #: [id number] PATIENT: HUNTERKELLE ARRIAZA #[id number] (Continued) --- MICROSCOPIC DESCRIPTION Performed. CLINICAL INFORMATION Morbid Obesity Signed SIGNATURE ON FILE Colin Zamudio MD 05/06/211934 END OF REPORT [id number] 06:09:00 Test Item Value Reference Range Interpretation Comments GLUBED (test code = GLUBED) 106 MG/DL 70-105 H [id number] 00:17:00 Test Item Value Reference Range Interpretation Comments GLUBED (test code = GLUBED) 111 MG/DL 70-105 H [id number] 19:16:00 Test Item Value Reference Range Interpretation Comments GLUBED (test code = GLUBED) 107 MG/DL 70-105 H [id number] 12:29:00 Test Item Value Reference Range Interpretation Comments GLUBED (test code = GLUBED) 135 MG/DL 70-105 H BASIC METABOLIC [id number] 06:20:00 Test Item Value Reference Range Interpretation [...] New = CA) Reference Range Jul 2020 [id number] 06:20:00 Test Item Value Reference Range Interpretation Comments PHOSPHOROUS (test code 4.0 mg/dL 2.4-5.1 N Pleas e note: New = PHOS) Reference Range Jul 2020 [id number] 06:20:00 Test Item Value Reference Range Interpretation Comments MAGNESIUM (test code = 1.7 mg/dL 1.6-2.6 N Pleas e note: New MAG) Reference Range Jul 2020 [id number] 06:14:00 Test Item Value Reference Range Interpretation Comments GLUBED (test code = GLUBED) 138 MG/DL 70-105 H CBC W/AUTO [id number] 05:54:00 Test Item Value Reference Range Interpretation [...] = BA#) 0.02 x10 3/uL 0.0-0.20 N [id number] 00:38:00 Test Item Value Reference Range Interpretation Comments GLUBED (test code = GLUBED) 118 MG/DL 70-105 H [id number] 16:23:00 Test Item Value Reference Range Interpretation Comments GLUBED (test code = GLUBED) 118 MG/DL 70-105 H [id number] 14:47:00 Test Item Value Reference Range Interpretation Comments GLUBED (test code = GLUBED) 84 MG/DL 70-105 N COVID Asymptomatic IH [id number] 13:19:00 Test Item Value Reference Interpretation Comments [...] i ts performancechar acteristics were determined by [facility]. Thi s test has notbeen FDA [...] setting? Unknown? UnknownAge at collection: YBASIC METABOLIC [id number] 18:29:00 Test Item Value Reference Range Interpretation [...] data elements a re missing the Laboratory daynelle ot compute an estimation of t he glomerular filtration rate . CREATININE (test 0.60 mg/dL 0.55-1.02 N Please note : New code = CREAT) Reference Rang e Jul 2020 CALCIUM (test code 9.0 mg/dL 8.7-10.4 N Please no te: New = CA) Reference Range Jul 2020 PROTHROMBIN [id number] 18:12:00 Test Item Value Reference Range Interpretation [...] 2.5-3.5recurren t systemic emboli sm. THROMBOPLASTIN TIME [id number] 18:12:00 Test Item Value Reference Range Interpretation Comments THROMBOPLASTIN TIME 33.9 SECONDS 23.8-34.8 N INTERPRE TATIVE PARTIAL (test code = : erapeutic PTT) range: Unfractionated heparin:55 - 80 seconds Argatroban:1.5 to 3 times the basel ine PTT CBC W/AUTO [id number] 18:00:00 Test Item Value Reference Range Interpretation [...] 0.02 x10 3/uL 0.0-0.20 N GLUCOSE BEDSIDE [id number] 11:18:00 Test Item Value Reference Range Interpretation Comments GLUCOSE BEDSIDE TESTING (test code 127 MG/DL 70-119 H = GLUBED) COVID 19 Asymptomatic IH [id number] 11:01:00 Test Item Value Reference Range Interpretation Comments COVID 19 Asymptomatic IH AG (test Negative Neg code = COVNONPUIAG) GLUCOSE BEDSIDE [id number] 06:07:00 Test Item Value Reference Range Interpretation Comments GLUCOSE BEDSIDE TESTING (test code 138 MG/DL 70-119 H = GLUBED) GLUCOSE BEDSIDE [id number] 20:58:00 Test Item Value Reference Range Interpretation Comments GLUCOSE BEDSIDE TESTING (test code 190 MG/DL 70-119 H = GLUBED) GLUCOSE BEDSIDE [id number] 16:30:00 Test Item Value Reference Range Interpretation Comments GLUCOSE BEDSIDE TESTING (test code 152 MG/DL 70-119 H = GLUBED) GLUCOSE BEDSIDE [id number] 11:40:00 Test Item Value Reference Range Interpretation Comments GLUCOSE BEDSIDE TESTING (test code 151 MG/DL 70-119 H = GLUBED) GLUCOSE BEDSIDE [id number] 05:53:00 Test Item Value Reference Range Interpretation Comments GLUCOSE BEDSIDE TESTING (test code 124 MG/DL 70-119 H = GLUBED) GLUCOSE BEDSIDE [id number] 21:00:00 Test Item Value Reference Range Interpretation Comments GLUCOSE BEDSIDE TESTING (test code 151 MG/DL 70-119 H = GLUBED) GLUCOSE BEDSIDE [id number] 16:24:00 Test Item Value Reference Range Interpretation Comments GLUCOSE BEDSIDE TESTING (test code 118 MG/DL 70-119 N = GLUBED) GLUCOSE BEDSIDE [id number] 11:46:00 Test Item Value Reference Range Interpretation Comments GLUCOSE BEDSIDE TESTING (test code 129 MG/DL 70-119 H = GLUBED) GLUCOSE BEDSIDE [id number] 06:20:00 Test Item Value Reference Range Interpretation Comments GLUCOSE BEDSIDE TESTING (test code = 98 MG/DL 70-119 N GLUBED) GLUCOSE BEDSIDE [id number] 19:56:00 Test Item Value Reference Range Interpretation Comments GLUCOSE BEDSIDE TESTING (test code 130 MG/DL 70-119 H = GLUBED) GLUCOSE BEDSIDE [id number] 15:54:00 Test Item Value Reference Range Interpretation Comments GLUCOSE BEDSIDE TESTING (test code = 93 MG/DL 70-119 N GLUBED) GLUCOSE BEDSIDE [id number] 11:38:00 Test Item Value Reference Range Interpretation Comments GLUCOSE BEDSIDE TESTING (test code 133 MG/DL 70-119 H = GLUBED) GLUCOSE BEDSIDE [id number] 06:07:00 Test Item Value Reference Range Interpretation Comments GLUCOSE BEDSIDE TESTING (test code 106 MG/DL 70-119 N = GLUBED) - CT HEAD/BRAIN W/O [id number] 23:08:00 [facility] KELLE CALDER[facility]N : 1975 Sex: F PatientName: KELLE CALDERÓN Unit No: [id number] EXAMS: CPT CODE: [id number] CT HEAD/BRAIN W/O CONT 17417 EXAM: - CT HEAD/BRAIN W/O CONT LOCATION: [...] Heather Keller;Zander Camilo MD Dictated Date/Time: 10/31/2020 (230) Technologist: Sara Varela CTDI: 43.27 DLP: 757.79 Trnscrpt: 10/31/2020 (2308) Radha.MKW1 [facility] [place] NAME: KELLE CALDERÓN MEDICAL IMAGING PHYS: GELAM - Arianna[address] : 1975 AGE: 45 SEX: YAYA [place] [address] NO: [id number] LOC: B.160 W PHONE #: [phone] EXAM DATE: 10/31/2020 STATUS: ADM IN FAX #: [phone] RAD #: D/C DT PAGE 1 Signed Report Patient Name: KELLE CALDERÓN Unit No: [id number] EXAMS: CPT CODE: [id number] CT HEAD/BRAIN W/O CONT 81053 <Continued> Orig Print D/T: S: 10/31/2020(2311) RAND Evangelista NAME: KELLE CALDERÓN MEDICAL IMAGING PHYS: ANNAMARIA [address] : 1975 AGE: 45 SEX: YAYA [place] [address] LOC: B.160 W PHONE#: [phone] EXAM DATE: 10/31/2020 STATUS: ADM IN FAX #: [phone] RAD #: D/C DT PAGE 2 Signed ReportGLUCOSE BEDSIDE [id number] 20:30:00 Test Item Value Reference Range Interpretation Comments GLUCOSE BEDSIDE TESTING (test code 111 MG/DL 70-119 N = GLUBED) GLUCOSE BEDSIDE [id number] 16:58:00 Test Item Value Reference Range Interpretation Comments GLUCOSE BEDSIDE TESTING (test code 110 MG/DL 70-119 N = GLUBED) GLUCOSE BEDSIDE [id number] 11:53:00 Test Item Value Reference Range Interpretation Comments GLUCOSE BEDSIDE TESTING (test code 149 MG/DL 70-119 H = GLUBED) GLUCOSE BEDSIDE [id number] 06:44:00 Test Item Value Reference Range Interpretation Comments GLUCOSE BEDSIDE TESTING (test code 119 MG/DL 70-119 N = GLUBED) GLUCOSE BEDSIDE [id number] 21:10:00 Test Item Value Reference Range Interpretation Comments GLUCOSE BEDSIDE TESTING (test code 143 MG/DL 70-119 H = GLUBED) - CT ANGIO [id number] 14:40:00 [facility]: KELLE CALDERÓN : 1975 Sex: F PatientName: KELLE CALDERÓN Unit No: [id number] EXAMS: CPT CODE: [id number] CT ANGIO HEAD [address] Location code: R 16 CT Angiogram of [...] the carotid arteries. CT angiography of the [place] with Contrast Indication: Stenosis, aneurysm. Comparison: 10/27/2020. Technique: Axial images were obtained post IV contrast with Sagittal and coronal MIPS. This exam was performed according to our departmental dose-optimization program, which includes automated exposure control, adjustment of the mA and/or kV according to patient size and/or use of [facility] [place] NAME: KELLE CALDERÓN MEDICAL IMAGING PHYS: Heather Jackson [address] : 1975 AGE: 45 SEX: F SRIRAMNADIR [place]AY[place] [address] [facility] [id number] LOC: B.160 W PHONE #: [phone] EXAM DATE: 10/30/2020 STATUS: ADM IN FAX #: [phone] RAD #: D/C DT PAGE 1 Signed Report (CONTINUED) Patient Name: KELLE CALDERÓN Unit No: [id number] EXAMS: CPT CODE: [id number] CT ANGIO HEAD [address]298 <Continued> iterative reconstruction technique. Total exam DLP [...] Technologist: Gama Lewis CTDI: 0 DLP: 0 [facility] [place] NAME: KELLE CALDERÓN [employer] IMAGING [address]YS: Heather [address] 1975 AGE: 45 SEX:F [place], [place] [address] LOC: B.160 W PHONE #: [phone] EXAM DATE: 10/30/2020TATUS: ADM IN FAX #: [phone] RAD #: D/C DT PAGE 2 Signed Report Patient Name: KELLE CALDERÓN Unit No: [id number] EXAMS: CPT CODE: [id number] CT ANGIO HEAD [address] <Continued> Trnscrpt: 10/30/2020 (1440) BillRDaryDRB1 RAND Evangelista NAME: KELLE CALDERÓN MEDICAL IMAGING PHYS: Heather Jackson [address] : 1975 AGE: 45 SEX: F YAYA EVANGELISTA [address] [facility] NO: [id number] LOC: B.160 W PHONE #: [phone] EXAM DATE: 10/30/2020 STATUS: ADM IN FAX #: [phone] RAD #: D/C DT PAGE 3 Signed Report- CT ANGIO [id number] 14:40:00[facility]: KELLE CALDERÓN : 1975 Sex: F PatientName: KELLE CALDERÓN Unit No: [id number] EXAMS: CPT CODE: [id number] CT ANGIO NECK [address] Location code: R 16 CT Angiogram of [...] the carotid arteries. CT angiography of the [place] with Contrast Indication: Stenosis, aneurysm. Comparison: 10/27/2020. Technique: Axial images were obtained post IV contrast with Sagittal and coronal MIPS. This exam was performed according to our departmental dose-optimization program, which includes automated exposure control, adjustment of the mA and/or kV according to patient size and/or use of [facility] Evangelista NAME: KELLE CALDERÓN [employer] IMAGING PHYS: Heather [address] 1975 AGE: 45 SEX: F YAYA EVANGELISTA [facility] LOC: B.160 W PHONE #: [phone] EXAM DATE: 10/30/2020 STATUS: ADM IN FAX #: [phone] RAD #: D/C DT PAGE 1 Signed Report (CONTINUED) Patient Name: KELLE CALDERÓN Unit No: [id number] EXAMS: CPT CODE: [id number] CT ANGIO NECK [address] <Continued> iterative reconstruction technique. Total exam DLP [...] exam. at 1440 Reported and signed by: Oim Sherman MD CC: Heather Keller; Zander Camilo MD Dictated Date/Time: 10/30/2020 (1440) Technologist: Gama Lewis CTDI: 62.79 DLP: 1429.59 Trnscrpt: 10/30/2020 (1440) Bud RAND Evangelista NAME: KELLE CALDERÓN [employer] IMAGING PHYS: Heather Jackson [address] [place] [address] BLVD : 1975 AGE: 45 SEX: YAYA GERMAN [facility] LOC: B.160 W PHONE #: [phone] EXAM DATE: 10/30/2020 STATUS: ADM IN FAX #: [phone] RAD #: D/C DT PAGE 2 Signed Report Patient Name: KELLE CALDERÓN Unit No: [id number] EXAMS: CPT CODE: [id number] CT ANGIO NECK [address] <Continued> Orig Print D/T: S: 10/30/2020 (1443) RAND Evangelista NAME: KELLE CALDERÓN MEDICAL IMAGING PHYS: Heather Jackson [address] [place] [address] BLVD : 1975 AGE: 45 SEX:F [place], [place] [address] LOC: B.160 W PHONE #: [phone] EXAM DATE: 10/30/2020TATUS: ADM IN FAX #: [phone] RAD #: D/C DT PAGE 3 Signed ReportBASI METABOLIC [id number] 08:27:00 Test Item Value Reference Range Interpretation [...] (test code = MG Index/DL The system [employer] h HEMINDEX) generated this result transmit octaviano [...] this result as normal/abnormal . CBC W/AUTO [id number] 07:39:00 Test Item Value Reference Range Interpretation [...] 0.00 K/mm3 0.0-0.05 N NRBC#) GLUCOSE BEDSIDE [id number] 20:47:00 Test Item Value Reference Range Interpretation Comments GLUCOSE BEDSIDE TESTING (test code 112 MG/DL 70-119 N = GLUBED) GLUCOSE BEDSIDE [id number] 18:38:00 Test Item Value Reference Range Interpretation Comments GLUCOSE BEDSIDE TESTING (test code = 84 MG/DL 70-119 N GLUBED) - CT HEAD/BRAIN W/O [id number] 09:37:00 [facility]: YADIEL CALDERÓNICA : 1975 Sex: F PatientName: KELLE CALDERÓN Unit No: [id number] EXAMS: CPT CODE: [id number] CT HEAD/BRAIN W/O CONT 97474 EXAM: - CT HEAD/BRAIN W/O CONT INDICATION: [...] Camilo MD; Omayra Alfonso Dictated Date/Time: 10/29/2020 (0937) Technologist: Moriah Mills CTDI: 47.36 DLP: 757.79 Trnscrpt: 10/29/2020 (0937) ChemoAH26 RAND Evangelista NAME: KELLE CALDERÓN MEDICAL IMAGING PHYS: Tyesha Mckeon [address] [place] [address] BLVD : 1975 AGE: 45 SEX: F [place], [place] [address] LOC: B.CCU34 D PHONE #: [phone] EXAM DATE: 10/28/2020 STATUS: ADM IN FAX #: [phone] RAD #: D/C DT PAGE 1 Signed Report Patient Name: KELLE CALDERÓN Unit No: [id number] EXAMS: CPT CODE: [id number] CT HEAD/BRAIN W/O CONT 99186 <Continued> Orig Print D/T: S: 10/29/2020 (0940) RAND Evangelista NAME: KELLE CALDERÓN MEDICAL IMAGING PHYS: Tyesha Mckeon [address] [facility] : 1975 AGE: 45 SEX: F [place], [place] [address] LOC: MichelleCCU34 D PHONE #: [phone] EXAM DATE: 10/28/2020 STATUS: ADM IN FAX #: [phone] RAD #: D/C DT PAGE 2 Signed ReportBASIC METABOLIC [id number] 06:27:00 Test Item Value Reference Range Interpretation [...] message] (test code = Index/DL The system john h HEMINDEX) generated this result transmit octaviano [...] 4.0-12.0 N code = CARB) BASIC METABOLIC [id number] 06:25:00 Test Item Value Reference Range Interpretation [...] message] (test code = Index/DL The system [employer] HEMINDEX) generated this result transmit octaviano reference [...] code = mcG/ML 4.0-12.0 CARB) CBC W/AUTO [id number] 06:12:00 Test Item Value Reference Range Interpretation [...] 0.00 K/mm3 0.0-0.05 N NRBC#) GLUCOSE BEDSIDE [id number] 00:39:00 Test Item Value Reference Range Interpretation Comments GLUCOSE BEDSIDE TESTING (test 91 MG/DL 70-119 N Notified Nurse~ code = GLUBED) GLUCOSE BEDSIDE [id number] 17:31:00 Test Item Value Reference Range Interpretation Comments GLUCOSE BEDSIDE TESTING (test code 103 MG/DL 70-119 N = GLUBED) GLUCOSE BEDSIDE [id number] 12:56:00 Test Item Value Reference Range Interpretation Comments GLUCOSE BEDSIDE TESTING (test code = 99 MG/DL 70-119 N GLUBED) URINALYSIS [id number] 11:40:00 Test Item Value Reference Range Interpretation [...] = RARE /LPF NONE MUCU) GLUCOSE BEDSIDE [id number] 08:42:00 Test Item Value Reference Range Interpretation Comments GLUCOSE BEDSIDE TESTING (test code = 97 MG/DL 70-119 N GLUBED) VITAMIN [id number] 08:05:00 Test Item Value Reference Range Interpretation Comments VITAMIN B12 (test code = VITB12) 382 PG/ML 183-986 N FOLIC [id number] 08:05:00 Test Item Value Reference Range Interpretation Comments FOLIC ACID (test code = FOL) 7.78 NG/ML 3.10-17.50 N LIPID PROFILE (CORONARY RISK)2020-10-28 07:42:00 Test Item Value Reference Range Interpretation Comments TRIGLYCERIDES (test 87 MG/DL 0-150 N Results may be code = TRIG) depressed if pa fina is takingN-Acetylc ystei ne (NAC) and Metamizole [...] HDL) depressed if shi harden is taking Metamizole(Jacob hernandez) . NON-HDL CHOLESTEROL 77 mg/dL <130 Patients [...] ave rage [Automated mess age] The system [employer] generated this result transmit octaviano reference range : 1.48-3.22 Avg. The reference range was not used to interpret this result as normal/abnormal . GLYCOSYLATED HEMOGLOBIN (HA1C)2020-10-28 07:37:00 Test Item Value Reference Range Interpretation Comments GLYCOSYLATED HEMOGLOBIN (HA1C) 7.3 % IS-A1C 4.5-5.6 H (test code = GLYHGB) ESTIMATED AVERAGE [id number] 07:37:00 Test Item Value Reference Range Interpretation Comments ESTIMATED AVERAGE GLUCOSE (test 163 MG/DLest code = EAG) CBC W/AUTO [id number] 07:29:00 Test Item Value Reference Range Interpretation [...] = 0.00 K/mm3 0.0-0.05 N NRBC#) SED [id number] 07:29:00 Test Item Value Reference Range Interpretation Comments SED RATE (test code = SEDW) 23 mm/hr 0-20 H COMPREHENSIVE METABOLIC [id number] 07:22:00 Test Item Value Reference Range Interpretation [...] (test code = MG Index/DL The system [employer] HEMINDEX) generated this result transmit octaviano reference [...] to interpret this result as normal/abnormal . [id number] 07:22:00 Test Item Value Reference Range Interpretation Comments PHOSPHOROUS (test code = PHOS) 4.5 MG/DL 2.5-4.9 N [id number] 07:22:00 Test Item Value Reference Range Interpretation Comments MAGNESIUM (test code = MAG) 2.4 MG/DL 1.6-2.6 N THYROID STIMULATING [id number] 07:22:00 Test Item Value Reference Range Interpretation Comments THYROID STIMULATING HORMONE 1.190 mc IU/ML 0.340-4.820 N (test code = TSH) COMPREHENSIVE METABOLIC [id number] 07:10:00 Test Item Value Reference Range Interpretation [...] to interpret this result as normal/abnormal . [id number] 07:10:00 Test Item Value Reference Range Interpretation Comments PHOSPHOROUS (test code = PHOS) MG/DL 2.5-4.9 [id number] 07:10:00 Test Item Value Reference Range Interpretation Comments MAGNESIUM (test code = MAG) 2.4 MG/DL 1.6-2.6 N THYROID STIMULATING [id number] 07:10:00 Test Item Value Reference Range Interpretation Comments THYROID STIMULATING HORMONE (test mc IU/ML 0.340-4.820 code = TSH) CBC W/AUTO [id number] 06:44:00 Test Item Value Reference Range Interpretation [...] = 0.00 K/mm3 0.0-0.05 N NRBC#) SED [id number] 06:44:00 Test Item Value Reference Range Interpretation Comments SED RATE (test code = SEDW) mm/hr 0-20 PT AND [id number] 06:36:00 Test Item Value Reference Interpretation Comments [...] prevention in p rosthetic heart 3.0-5.4 A WA mortality reduc tion THROMBOPLASTIN TIME 28.3 SECONDS 24-37.7 N THERAPEU TIC RANGE FOR PARTIAL (test code UNFRACTIO NATED HEPARIN = = PTT) 50.5-83.6 SEC T his test is not recommen ded to monitor low molecularweight heparin or danaparoid. Order LMWH test COLLECTION THROUGH LINES THAT HAVE BEEN PREVIOUSLY FLUS HEDWITH HEPARIN SHOULD BE AVOIDED DUE TO POSSIBLE HEPARINCONTAMIN ATION - CT ANGIO [id number] 23:36:00 [facility] 1976 Sex: F Name: KELLE CALDERÓN Orgas : 1976 Age/S: 44 / F [id number] [place] Unit #: [id number] Loc: [place] [address] Phys: Lisa Amaya MD Acct: [id number] Dis Date: Status: REG ER PHONE #: [phone] Exam Date: 10/27/2020 2330 FAX #: Reason: left side weakness EXAMS: CPT: [id number] CT ANGIO NECK 13717 EXAM: - CT ANGIO HEAD, - CT ANGIO NECK LOCATION: H57 HISTORY: left side weakness TECHNIQUE: CTA head: Axial CT images were obtained from the skull base to the vertex after intravenous contrast utilizing CTA protocol. Coronal and sagittal maximum intensity projection images are provided. CTAneck: Axial CT images were obtained from the [...] arteries do not demonstrate hemodynamically significant stenoses. [place] of both vertebral arteries into the basilar. Basilar artery and posterior cerebral arteries are do not demonstrate hemodynamically significant stenoses. No aneurysm is seen. The dural venous sinuses are patent. PAGE 1 Signed Report (CONTINUED) Name: KELLE CALDERÓN Orgas : 1976 Age/S: 44 / F [id number] Unit #: [id number] Loc: [place] [address] Phys: Lisa Amaya MD Acct: [id number] Dis Date:Status: REG ER PHONE #: [phone] Exam Date: 10/27/20202329 FAX #: Reason: left side weakness EXAMS: CPT: [id number] CT ANGIO NECK [address]3911 <Continued> CTA neck: The origins of the [...] Lisa Amaya MD Technologist:RT Elaine(R)(CT); ... CTDI: DLP:Trnscb Date/Time: 10/27/2020 (2335) [email or web address] Orig Print D/T: S: 10/27/2020 (9970) PAGE 2 Signed Report- CT ANGIO [id number] 23:36:00 [facility] 1976 Sex: F Name: KELLE CALDERÓN : 1976 Age/S: 44 / F [id number] Unit #: [id number] Loc: [place] [address] Phys: Lisa Amaya MD Acct: [id number] Dis Date: Status: REG ER PHONE #: [phone] Exam Date: 10/27/20200 FAX #: Reason: left side weakness EXAMS: CPT: [id number] CT FRANCIE O HEAD [address]886 EXAM: - CT ANGIO HEAD, - CT [...] arteries do not demonstrate hemodynamically significant stenoses. [place] of both vertebral arteries into the basilar. Basilar artery and posterior cerebral arteries are do not demonstrate hemodynamically significant stenoses. No aneurysm is seen. The dural venous sinuses are patent. PAGE 1 Signed Report (CONTINUED) Name: KELLE CALDERÓN : 1976 Age/S: 44 / F [address] Unit #: [id number] Loc: [place] [address] Phys: Lisa Amaya MD Acct: [id number] Dis Date: Status: REG ER PHONE #: [phone] Exam Date: 10/27/2020 2330 FAX #: Reason: left side weaknessEXAMS: CPT: [id number] CT ANGIO HEAD [address] <Continued> CTA neck: The origins of the [...] contamination. No obvious large vessel occlusion is serafin ntified. MRA may be considered for further evaluation if clinically indicated. 3. No aneurysm or dissection. Findings were communicated to Lisa Amaya MD by telephone on 10/27/2020 11:36 PM. at 2336 Reported and signed by: Alisa Alcocer M.D. CC: Lisa Amaya MD Technologist:Le Castaneda, RT(R)(CT) CTDI:DLP: Trnscb Date/Time: 10/27/2020 (2336) [email or web address] Orig Print D/T: S: 10/27/2020 (3840) PAGE 2 Signed ReportCOVID 19 INHOUSE [id number] 23:11:00 Test Item Value Reference Range Interpretation Comments COVID 19 INHOUSE AG NEGATIVE Negative Per manu facturer, (test code = negative result s should [id number]) be treated aspr esumptive and, if inconsi [...] symptoms co nsistent with COVID-19. BASIC METABOLIC [id number] 22:48:00 Test Item Value Reference Range Interpretation [...] 8.5 MG/DL 8.5-10.1 N Completed by Nursing: [id number] 22:48:00 Test Item Value Reference Range Interpretation [...] ruth yby method. Completed by Nursing: NOPROTHROMBIN [id number] 22:41:00 Test Item Value Reference Range Interpretation Comments PT PATIENT (test code = PTP) 11.2 SECONDS 9.3-12.9 N INTERNATIONAL NORMAL RATIO 1.00 INR Unit 0.8-1.2 N (test code = INR) THROMBOPLASTIN TIME [id number] 22:41:00 Test Item Value Reference Range Interpretation Comments THROMBOPLASTIN TIME PARTIAL 32.7 SECONDS 26-35 N (test code = PTT) GLUCOSE BEDSIDE [id number] 22:18:00 Test Item Value Reference Range Interpretation Comments GLUCOSE BEDSIDE TESTING (test code 190 mg/dL 70-110 H = GLUBED) CBC W/O [id number] 22:18:00 Test Item Value Reference Range Interpretation [...] 7.0-10.5 H MPV) - CT HEAD/BRAIN W/O [id number] 22:14:00 [facility] : 1976 Sex: F Name: KELLE CALDERÓN [facility] : 1976 Age/S: 44 / F [address] Unit #: [id number] Loc: [place] [address] Phys: Lisa Amaya MD Acct: [id number] Dis Date: Status: PRE ER PHONE #: [phone] Exam Date: 10/27/20202208 FAX #: Reason: code stroke EXAMS: CPT: [id number] CT HEAD/BRAIN W/O CONT 70496 EXAM: CT Head without contrast Location: A1 [...] Brain parenchymal volume and ventricular caliber are wit hin normal limits. Wan-white differentiation is maintained. There [...] CVR PAGE 1 Signed Report (CONTINUED) Name: KELLE CALDERÓN [facility] : 1976 Age/S: 44 / F [address] Unit #: [id number] Loc: [place] [address] Phys: Lisa Amaya MD Acct: [id number] Dis Date: Status: PRE ER PHONE #: [phone] Exam Date: 10/27/20202208 FAX #: Reason: code stroke EXAMS: CPT: [id number] CT HEAD/BRAIN W/O CONT 53036 <Continued> at 2214 Reported and signed by: Gene Kaur M.D. CC: Lisa Amaya MD Technologist:Hawa Rubio, RT(R)(CT); ... CTDI: DLP: Trnscb Date/Time: 10/27/2020 (2213) [email or web address] Print D/T: S: 10/27/2020 (2216) PAGE 2 Signed ReportSURGICAL [id number] 09:03:00 Test Item Value Reference Range Interpretation Comments SURGICAL SPECIMENS (test code = SURG) --------RUN DATE: 05/07/20 [facility] - LAB PAGE 1 RUN TIME: 902 Specimen Inquiry RUN USER: INTERFACE --------PATIENT: KELLE CALDERÓN LOC: TgCHRIS U #: [id number] AGE/SX: 44/F ROOM: RE05/02/20[facility] DR: Giuliano Abdullahi MD : 75 BED: DIS: STATUS: ISAI [facility] TLOC: -------- SPEC #: [id number] RECD: 05/02/20 STATUS: JACQUELINE REQ #: [id number] INA: 05/02/20 [facility] [address]: Giuliano Abdullahi MD ENTERED: 05/02/20 SP TYPE: SURG OTHR DR: Candace DhaliwalP ORDERED: PATHGM4/2, PATH SPEC, H E STAIN/2 [...] and its performance characteristics determined by the [facility]. It has not been cleared or approved by the US Food and Drug Administration. The FDA has determined that such clearance or approval is not necessary. The test is used for clinical purposes. It should not be regarded as investigational or for research. [facility] is certified under CLIA-88 (Clinical Laboratory Improvement [...] METAPLASIA, DYSPLASIA, OR MALIGNANCY IS IDENTIFIED CPT: 54203 x2, 08697 CONTINUED ON NEXT PAGE --------RUN DATE: 05/07/20 [facility] - LAB PAGE 2 RUN TIME: 03 Specimen Inquiry RUN USER: INTERFACE --------SPEC #: [id number] PATIENT: KELLE CALDERÓN #[id number] (Continued) GROSS DESCRIPTION Received are two containers [...] they are submitted in toto in "B". /law MICROSCOPIC DESCRIPTION Performed. Signed SIGNATURE ON FILE Angeles Miller MD 05/07/20 0903 -------- END OF REPORT [id number] 15:00:00 Test Item Value Reference Range Interpretation Comments GLUBED (test code = GLUBED) 148 MG/DL 70-105 H COVID 19 Asymptomatic IH [id number] 13:12:00 Test Item Value Reference Range Interpretation [...] clinical signs and symptomsconsist ent with COVID-19. CHEM [id number] 18:47:00 Test Item Value Reference Range Interpretation Comments eGFR (test code = eGFR) 100 [facility] [employer] [id number] 18:47:00 Test Item Value Reference Range Interpretation Comments Globulin (test code = Globulin) 3.8 2.7-4.2 [facility] [employer] [id number] 18:47:00 Test Item Value Reference Range Interpretation Comments A/G Ratio (test code = A/G Ratio) 1.0 1 0.7-1.6 [facility] [employer] [id number] 18:47:00 Test Item Value Reference Range Interpretation Comments Bili Total (test code = Bili Total) 0.3 0.2-1.3 [facility] [employer] [id number] 18:47:00 Test Item Value Reference Range Interpretation Comments AGAP (test code = AGAP) 10.8 10.0-20.0 [facility] [employer] [id number] 18:47:00 Test Item Value Reference Range Interpretation Comments B/C Ratio (test code = B/C Ratio) 23 1 6-25 [facility] [employer] [id number] 18:47:00 Test Item Value Reference Range Interpretation Comments Potassium Lvl (test code = Potassium 3.8 3.5-5.1 Lvl) [facility] [employer] [id number] 18:47:00 Test Item Value Reference Range Interpretation Comments Sodium Lvl (test code = Sodium Lvl) 143 135-145 [facility] [employer] [id number] 18:47:00 Test Item Value Reference Range Interpretation Comments Chloride Lvl (test code = Chloride Lvl) 108 95-109 [facility] [id number] 18:47:00 Test Item Value Reference Range Interpretation Comments AST (test code = AST) 23 See_Comment [Auto mated message] The system which ge nerated this result transmit octaviano reference range : <=37. The reference range was not used to interpr et this result as laurie l/abnormal. [facility] [id number] 18:47:00 Test Item Value Reference Range Interpretation Comments Alk Phos (test code = Alk Phos) 88 39-136 [facility] [id number] 18:47:00 Test Item Value Reference Range Interpretation Comments ALT (test code = ALT) 21 See_Comment [Auto mated message] The system which ge nerated this result transmit octaviano reference range : <=65. The reference range was not used to interpr et this result as laurie l/abnormal. [facility] Vital RecordsCAROMONT [id number] 18:47:00 Test Item Value Reference Range Interpretation Comments CO2 (test code = CO2) 28 24-32 [facility] [id number] 18:47:00 Test Item Value Reference Range Interpretation Comments Calcium Lvl (test code = Calcium Lvl) 8.8 8.5-10.5 [facility] [id number] 18:47:00 Test Item Value Reference Range Interpretation Comments Albumin Lvl (test code = Albumin Lvl) 3.7 3.5-5.0 [facility] Vital RecordsCAROMONT [id number] 18:47:00 Test Item Value Reference Range Interpretation Comments Total Protein (test code = Total 7.5 6.4-8.4 Protein) [facility] Vital RecordsCAROMONT [id number] 18:47:00 Test Item Value Reference Range Interpretation Comments Glucose Lvl (test code = Glucose Lvl) 84 70-99 [facility] [id number] 18:47:00 Test Item Value Reference Range Interpretation Comments Creatinine Lvl (test code = Creatinine 0.74 0.50-1.40 Lvl) [facility]2019-04-03 18:47:00 Test Item Value Reference Range Interpretation Comments BUN (test code = BUN) 17 7-22 [facility] Cam[id number] 18:47:00 Test Item Value Reference Range Interpretation Comments Eosinophils # (test code 0.1 See_Comment [A utomated message] The = Eosinophils #) system whic h generated this result tra nsmitted reference range : <=0.5. The reference r gulshan was not used to int erpret this result as normal/abnormal . [facility] Camp[id number] 18:47:00 Test Item Value Reference Range Interpretation Comments Monocytes (test code = Monocytes) 4.4 2.0-12.0 [facility] CampusOkmlwnsYWOEWCCYZA1110-43-98 18:47:00 Test Item Value Reference Range Interpretation Comments Eosinophils (test code = 1.6 See_Comment [A utomated message] The Eosinophils) system which ge nerated this result tra nsmitted reference range : <=4.0. The reference r gulshan was not used to int erpret this result as normal/abnormal . [facility] [id number] 18:47:00 Test Item Value Reference Range Interpretation Comments Basophils (test code = 0.2 See_Comment [Aut omated message] The Basophils) system which ge nerated this result tra nsmitted reference range : <=1.0. The reference r gulshan was not used to int erpret this result as normal/abnormal . [facility] CampusXoaowgrVOZUCZRANZ2096-55-71 18:47:00 Test Item Value Reference Range Interpretation Comments Lymphocytes (test code = Lymphocytes) 23.0 20.0-40.0 [facility] CampusHyydqxxBCOFZFJGUK7536-23-22 18:47:00 Test Item Value Reference Range Interpretation Comments Neutrophils # (test code = Neutrophils 5.3 1.5-8.1 #) [facility] CampusVdixyqaACMFXMWDZY3162-33-22 18:47:00 Test Item Value Reference Range Interpretation Comments Lymphocytes # (test code = Lymphocytes 1.7 1.0-5.5 #) [facility] CampusKzkjhsxOACXCSHZRT7185-92-71 18:47:00 Test Item Value Reference Range Interpretation Comments Monocytes # (test code 0.3 See_Comment [Aut omated message] The = Monocytes #) system which generated this result tra nsmitted reference range : <=0.8. The reference r gulshan was not used to int erpret this result as normal/abnormal . [facility] CampusSrpzcwzGMCKUQYKWQ8342-95-27 18:47:00 Test Item Value Reference Range Interpretation Comments Segs (test code = Segs) 70.8 45.0-75.0 [facility] CampusGbwnfggGTUQMJLNXJ4586-07-53 18:47:00 Test Item Value Reference Range Interpretation Comments MCHC (test code = MCHC) 32.7 32.0-36.0 [facility]BeikmsdVWAQMZTAEW7513-30-89 18:47:00 Test Item Value Reference Range Interpretation Comments Hct (test code = Hct) 39.9 36.0-48.0 [facility] HospitalJepmqcxWFGIRQUZKX3920-44-50 18:47:00 Test Item Value Reference Range Interpretation Comments MCV (test code = MCV) 87.0 80.0-98.0 [facility] HospitalWhpwzsvJNXMNWEAOG9162-75-70 18:47:00 Test Item Value Reference Range Interpretation Comments MCH (test code = MCH) 28.5 pg 27.0-31.0 [facility] HospitalMhfuqwoQZBLRDLLOQ9879-09-21 18:47:00 Test Item Value Reference Range Interpretation Comments RDW (test code = RDW) 14.8 11.5-14.5 [facility] HospitalTwhrtcxLYIENYPYLQ3150-92-56 18:47:00 Test Item Value Reference Range Interpretation Comments Hgb (test code = Hgb) 13.0 12.0-16.0 [facility] HospitalOvgluswQAQAISDKAH7106-38-06 18:47:00 Test Item Value Reference Range Interpretation Comments Platelet (test code = Platelet) 197 133-450 [facility] HospitalUcqilaoUKVDYAQCQV7219-92-24 18:47:00 Test Item Value Reference Range Interpretation Comments MPV (test code = MPV) 10.2 7.4-10.4 [facility] HospitalBzczzipSZFTESUZUO5878-38-95 18:47:00 Test Item Value Reference Range Interpretation Comments RBC (test code = RBC) 4.59 4.20-5.40 [facility] HospitalPdtvataPUYJWILACX5776-98-54 18:47:00 Test Item Value Reference Range Interpretation Comments WBC (test code = WBC) 7.4 3.7-10.4 [facility] [id number] 18:47:00 Test Item Value Reference Range Interpretation Comments Hgb A1C (test code = Hgb A1C) 6.2 [facility] JI Monson, 2 [id number] 15:49:00Reason for exam:- >coughShould this be performed at the bedside?->NoFINAL REPORT Chest, PA and lateral. History: Cough. Comparison: 12/07/2017. Discu ssion: Mild cardiomegaly. The lungs are clear without evidence of consolidation or effusion. There are no acute osseous abnormalities. The soft tissues are unremarkable. IMPRESSION: No acute cardiopulmonary abnormality. Signed: Joseph Vang MDReport Verified Date/Time: 08/21/2018 15:49:59 Reading Location: [facility] Reading Room [id number] 10:53:00 Test Item Value Reference Range Interpretation Comments AGAP (test code = AGAP) 11.8 10.0-20.0 [facility]awYuxwpaqKIDFHPIZLTLE1021-01-33 10:53:00 Test Item Value Reference Range Interpretation Comments Chloride Lvl (test code = Chloride Lvl) 109 95-109 [facility]awRlxyimyZDSQVIEYMIKI6208-99-51 10:53:00 Test Item Value Reference Range Interpretation Comments Potassium Lvl (test code = Potassium 3.8 3.5-5.1 Lvl) [facility]awAipqhwjAIIGHYCNLHDP3237-77-24 10:53:00 Test Item Value Reference Range Interpretation Comments Sodium Lvl (test code = Sodium Lvl) 145 135-145 [facility]awSwrftgrEOBXPRWTNYYC5641-55-45 10:53:00 Test Item Value Reference Range Interpretation Comments Calcium Lvl (test code = Calcium Lvl) 8.1 8.5-10.5 [facility]awOrziuhjVXUCSZGMUKLC4755-80-84 10:53:00 Test Item Value Reference Range Interpretation Comments Creatinine Lvl (test code = Creatinine 0.51 0.50-1.40 Lvl) [facility]awHegkrcsIMNPCXZZFYKR2452-91-36 10:53:00 Test Item Value Reference Range Interpretation Comments eGFR (test code = eGFR) 118 [facility]aginawFkjphzmSGHTQCGNLIAQ1376-20-42 10:53:00 Test Item Value Reference Range Interpretation Comments CO2 (test code = CO2) 28 24-32 [facility]awPerhmvaGPXPTEJUUSJT9196-92-94 10:53:00 Test Item Value Reference Range Interpretation Comments BUN (test code = BUN) 11 7-22 [facility]aginawNungufaAHJJQOKABARV5619-95-55 10:53:00 Test Item Value Reference Range Interpretation Comments Glucose Lvl (test code = Glucose Lvl) 104 70-99 [facility] CampusGumxdoaZYZIAIEDGN2250-17-40 10:53:00 Test Item Value Reference Range Interpretation Comments Lymphocytes # (test code = Lymphocytes 1.1 1.0-5.5 #) [facility] CampusFclvwytVKUTTIIHVQ9417-06-62 10:53:00 Test Item Value Reference Range Interpretation Comments Neutrophils # (test code = Neutrophils 5.5 1.5-8.1 #) [facility] CampusCfypdvjNWAJAPCBQY5320-68-74 10:53:00 Test Item Value Reference Range Interpretation Comments Eosinophils # (test code 0.1 See_Comment [A utomated message] The = Eosinophils #) system whic h generated this result tra nsmitted reference range : <=0.5. The reference r gulshan was not used to int erpret this result as normal/abnormal . [facility] CampusAnjcwblNDGMZYZAUK3944-06-45 10:53:00 Test Item Value Reference Range Interpretation Comments Monocytes # (test code 0.3 See_Comment [Aut omated message] The = Monocytes #) system which generated this result tra nsmitted reference range : <=0.8. The reference r gulshan was not used to int erpret this result as normal/abnormal . [facility] CampusWhlacafMMPSHMRFHU2927-99-60 10:53:00 Test Item Value Reference Range Interpretation Comments Lymphocytes (test code = Lymphocytes) 15.3 20.0-40.0 [facility] CampusUwlosqoHDIYLGLCNK0495-57-12 10:53:00 Test Item Value Reference Range Interpretation Comments Segs (test code = Segs) 78.5 45.0-75.0 [facility] CampusApomxrnWWQQHBHYVO7520-01-03 10:53:00 Test Item Value Reference Range Interpretation Comments Eosinophils (test code = 1.2 See_Comment [A utomated message] The Eosinophils) system which ge nerated this result tra nsmitted reference range : <=4.0. The reference r gulshan was not used to int erpret this result as normal/abnormal . [facility] CampusQbyolrbORFFEJQZXC7742-73-56 10:53:00 Test Item Value Reference Range Interpretation Comments Monocytes (test code = Monocytes) 4.3 2.0-12.0 [facility] CampusPmkeevbCIJMTNSJOM2226-76-83 10:53:00 Test Item Value Reference Range Interpretation Comments Basophils (test code = 0.7 See_Comment [Aut omated message] The Basophils) system which ge nerated this result tra nsmitted reference range : <=1.0. The reference r gulshan was not used to int erpret this result as normal/abnormal . [facility] CampusBjnrtqpQLSVMFYLOQ6142-46-97 10:53:00 Test Item Value Reference Range Interpretation Comments MCHC (test code = MCHC) 32.5 32.0-36.0 [facility] CampusBhtqcfnKCKTBRDDDL6007-97-31 10:53:00 Test Item Value Reference Range Interpretation Comments RDW (test code = RDW) 15.1 11.5-14.5 [facility] CampusMipkvxyFNXQVXNLYN7607-83-67 10:53:00 Test Item Value Reference Range Interpretation Comments Platelet (test code = Platelet) 188 133-450 [facility] CampusYdukqioLGMJEFHIGY8404-24-16 10:53:00 Test Item Value Reference Range Interpretation Comments MPV (test code = MPV) 9.4 7.4-10.4 [facility] CampusPkakddoXEMCLUVJQV3363-15-71 10:53:00 Test Item Value Reference Range Interpretation Comments RBC (test code = RBC) 3.87 4.20-5.40 [facility] CampusUtpstiaQEHNBULBEW2811-76-25 10:53:00 Test Item Value Reference Range Interpretation Comments Hgb (test code = Hgb) 11.0 12.0-16.0 [facility] CampusWfykpqoQJISSFCSAG4257-95-49 10:53:00 Test Item Value Reference Range Interpretation Comments MCV (test code = MCV) 87.6 80.0-98.0 [facility] CampusAhmbjmlEDSBHMTEUL0897-05-58 10:53:00 Test Item Value Reference Range Interpretation Comments MCH (test code = MCH) 28.5 pg 27.0-31.0 [facility] Camp[id number] 10:53:00 Test Item Value Reference Range Interpretation Comments Hct (test code = Hct) 33.9 36.0-48.0 [facility] CampusAbmjvvgGEUHZYSKGJ7902-98-80 10:53:00 Test Item Value Reference Range Interpretation Comments WBC (test code = WBC) 7.0 3.7-10.4 [facility] [id number] 11:52:00 Test Item Value Reference Range Interpretation Comments Alk Phos (test code = Alk Phos) 87 39-136 [facility] [id number] 11:52:00 Test Item Value Reference Range Interpretation Comments eGFR (test code = eGFR) 110 [facility]2019-01-01 11:52:00 Test Item Value Reference Range Interpretation Comments Chloride Lvl (test code = Chloride Lvl) 107 95-109 [facility]2019-01-01 11:52:00 Test Item Value Reference Range Interpretation Comments Sodium Lvl (test code = Sodium Lvl) 142 135-145 [facility]2019-01-01 11:52:00 Test Item Value Reference Range Interpretation Comments Potassium Lvl (test code = Potassium 4.0 3.5-5.1 Lvl) [facility]2019-01-01 11:52:00 Test Item Value Reference Range Interpretation Comments Creatinine Lvl (test code = Creatinine 0.63 0.50-1.40 Lvl) [facility]2019-01-01 11:52:00 Test Item Value Reference Range Interpretation Comments ALT (test code = ALT) 18 See_Comment [Auto mated message] The system which ge nerated this result transmit octaviano reference range : <=65. The reference range was not used to interpr et this result as laurie l/abnormal. [facility]2019-01-01 11:52:00 Test Item Value Reference Range Interpretation Comments Bili Total (test code = Bili Total) 1.0 0.2-1.3 [facility]2019-01-01 11:52:00 Test Item Value Reference Range Interpretation Comments AST (test code = AST) 29 See_Comment [Auto mated message] The system which ge nerated this result transmit octaviano reference range : <=37. The reference range was not used to interpr et this result as laurie l/abnormal. [facility]2019-01-01 11:52:00 Test Item Value Reference Range Interpretation Comments Total Protein (test code = Total 7.5 6.4-8.4 Protein) [facility]2019-01-01 11:52:00 Test Item Value Reference Range Interpretation Comments Albumin Lvl (test code = Albumin Lvl) 3.2 3.5-5.0 [facility]2019-01-01 11:52:00 Test Item Value Reference Range Interpretation Comments CO2 (test code = CO2) 25 24-32 [facility]2019-01-01 11:52:00 Test Item Value Reference Range Interpretation Comments BUN (test code = BUN) 13 7-22 [facility]2019-01-01 11:52:00 Test Item Value Reference Range Interpretation Comments Glucose Lvl (test code = Glucose Lvl) 143 70-99 [facility]2019-01-01 11:52:00 Test Item Value Reference Range Interpretation Comments Calcium Lvl (test code = Calcium Lvl) 8.3 8.5-10.5 [facility]2019-01-01 11:52:00 Test Item Value Reference Range Interpretation Comments B/C Ratio (test code = B/C Ratio) 21 1 6-25 [facility]2019-01-01 11:52:00 Test Item Value Reference Range Interpretation Comments Globulin (test code = Globulin) 4.3 2.7-4.2 [facility]2019-01-01 11:52:00 Test Item Value Reference Range Interpretation Comments A/G Ratio (test code = A/G Ratio) 0.7 1 0.7-1.6 [facility]2019-01-01 11:52:00 Test Item Value Reference Range Interpretation Comments AGAP (test code = AGAP) 14.0 10.0-20.0 [facility] CampusMsuckxiYWRJUANHUQ0843-55-96 11:52:00 Test Item Value Reference Range Interpretation Comments Hgb (test code = Hgb) 12.6 12.0-16.0 [facility] CampusNvvmjiyBOEWQFRDVR3243-14-15 11:52:00 Test Item Value Reference Range Interpretation Comments MCV (test code = MCV) 88.3 80.0-98.0 [facility] CampusMcswdqqORKBBGSAFZ6404-54-13 11:52:00 Test Item Value Reference Range Interpretation Comments MCHC (test code = MCHC) 32.8 32.0-36.0 [facility] CampusGkuhealRMMRNSAMBL3472-00-81 11:52:00 Test Item Value Reference Range Interpretation Comments MCH (test code = MCH) 29.0 pg 27.0-31.0 [facility] CampusSxmbrdxCOXALOZQTO6853-95-78 11:52:00 Test Item Value Reference Range Interpretation Comments RBC (test code = RBC) 4.34 4.20-5.40 [facility] CampusEtoselqSJGLLZRUAT6623-31-16 11:52:00 Test Item Value Reference Range Interpretation Comments WBC (test code = WBC) 9.2 3.7-10.4 [facility] CampusJrnqoixPZAHIYEJBL1194-18-22 11:52:00 Test Item Value Reference Range Interpretation Comments MPV (test code = MPV) 10.1 7.4-10.4 [facility] CampusVojkkkhGUORTSYNML0024-57-89 11:52:00 Test Item Value Reference Range Interpretation Comments Platelet (test code = Platelet) 211 133-450 [facility] CampusHusqxnwVYCUKHRNTR6028-16-05 11:52:00 Test Item Value Reference Range Interpretation Comments RDW (test code = RDW) 15.2 11.5-14.5 [facility] CampusXercfevVATBWSJZCU3776-50-82 11:52:00 Test Item Value Reference Range Interpretation Comments Hct (test code = Hct) 38.3 36.0-48.0 [facility] CampusPkleovtIWJWJKLNVN3025-12-49 11:52:00 Test Item Value Reference Range Interpretation Comments PTT (test code = PTT) 37.5 s 22.9-35.8 [facility] CampusWwcwurdYNXIJPNVMD4624-90-03 11:52:00 Test Item Value Reference Range Interpretation Comments PT (test code = PT) 15.4 s 12.0-14.7 [facility] CampusTbucbfuVXDJUQJBBP8272-38-21 11:52:00 Test Item Value Reference Range Interpretation Comments INR (test code = INR) 1.24 1 0.85-1.17 [facility] CampusMqxganiHXUECGGJBJ9914-25-69 11:52:00 Test Item Value Reference Range Interpretation Comments Basophils (test code = 0.2 See_Comment [Aut omated message] The Basophils) system which ge nerated this result tra nsmitted reference range : <=1.0. The reference r gulshan was not used to int erpret this result as normal/abnormal . [facility] CampusOiyupfkVJMUHYKLUB4474-83-77 11:52:00 Test Item Value Reference Range Interpretation Comments Eosinophils (test code = 0.3 See_Comment [A utomated message] The Eosinophils) system which ge nerated this result tra nsmitted reference range : <=4.0. The reference r gulshan was not used to int erpret this result as normal/abnormal . [facility] CampusTpuelgiWZZTKFDRRZ5206-92-86 11:52:00 Test Item Value Reference Range Interpretation Comments Monocytes (test code = Monocytes) 3.7 2.0-12.0 [facility]VatjqhkLBIOCKDVDD0947-24-02 11:52:00 Test Item Value Reference Range Interpretation Comments Lymphocytes (test code = Lymphocytes) 13.6 20.0-40.0 [facility]anoOijmbodZQXDQQRXII3282-66-18 11:52:00 Test Item Value Reference Range Interpretation Comments Neutrophils # (test code = Neutrophils 7.6 1.5-8.1 #) [facility]bs[facility]OCVNYNMPN2593-47-47 11:52:00 Test Item Value Reference Range Interpretation Comments Lymphocytes # (test code = Lymphocytes 1.2 1.0-5.5 #) [facility]anoZcshxxeVFNRURUNUH7468-77-37 11:52:00 Test Item Value Reference Range Interpretation Comments Monocytes # (test code 0.3 See_Comment [Aut omated message] The = Monocytes #) system which generated this result tra nsmitted reference range : <=0.8. The reference r gulshan was not used to int erpret this result as normal/abnormal . [facility]ownZuwpqxfKIBFILJUDM9993-49-88 11:52:00 Test Item Value Reference Range Interpretation Comments Segs (test code = Segs) 82.2 45.0-75.0 [facility]anoYgzdtytOYKCID3145-07-29 11:52:00 Test Item Value Reference Range Interpretation Comments CHD Risk (test code = CHD Risk) 2.88 1 3.90-5.80 [facility]anoKyiivcbRCGFRB4894-74-28 11:52:00 Test Item Value Reference Range Interpretation Comments VLDL (test code = VLDL) 18 1 [facility]anoNeaqxslAPBTWL8765-88-01 11:52:00 Test Item Value Reference Range Interpretation Comments HDL (test code = HDL) 48 [facility]anoAvfqxqdMMULAA9212-98-17 11:52:00 Test Item Value Reference Range Interpretation Comments LDL (Calculated) (test code = LDL 72 (Calculated)) [facility]anoPlhuxifIMRKJX5885-54-16 11:52:00 Test Item Value Reference Range Interpretation Comments Trig (test code = Trig) 92 [facility]anoYhnkkcfWCAJHX8359-70-54 11:52:00 Test Item Value Reference Range Interpretation Comments Chol (test code = Chol) 138 [facility] MPEJUTIQY6840-95-94 11:52:00 Test Item Value Reference Range Interpretation Comments Hgb A1C (test code = Hgb A1C) 6.1 [facility] [id number] 11:52:00 Test Item Value Reference Range Interpretation Comments UA Ketones (test code = UA Ketones) Negative [facility] [id number] 11:52:00 Test Item Value Reference Range Interpretation Comments UA Bili (test code = Negative *NA*(06/13/18 UA Bili) 5:52 AM) [facility] [id number] 11:52:00 Test Item Value Reference Range Interpretation Comments UA Blood (test code = Moderate *ABN*(06/13/18 UA Blood) 5:52 AM) [facility] [id number] 11:52:00 Test Item Value Reference Range Interpretation Comments UA Nitrite (test code Negative (06/13/18 5:52 = UA Nitrite) AM) [facility] [id number] 11:52:00 Test Item Value Reference Range Interpretation Comments UA Urobilinogen (test code = UA <=1.0 mg/dL 0.1-1.0 Urobilinogen) [facility] [id number] 11:52:00 Test Item Value Reference Range Interpretation Comments UA Sq Epi (test code = UA Sq Occasional /LPF Epi) [facility] [id number] 11:52:00 Test Item Value Reference Range Interpretation Comments UA WBC (test code = 1 See_Comment [Automa octaviano message] The UA WBC) system which ge nerated this result transmit octaviano reference range : <=5. The reference range was not used to interpr et this result as laurie l/abnormal. [facility] [id number] 11:52:00 Test Item Value Reference Range Interpretation Comments UA Leuk Est (test Negative (06/13/18 5:52 code = UA Leuk Est) AM) [facility] [id number] 11:52:00 Test Item Value Reference Range Interpretation Comments UA Bacteria (test code = UA Occasional /HPF Bacteria) [facility] [id number] 11:52:00 Test Item Value Reference Range Interpretation Comments UA RBC (test code = 7 See_Comment [Automa octaviano message] The UA RBC) system which ge nerated this result transmit octaviano reference range : <=2. The reference range was not used to interpr et this result as laurie l/abnormal. [facility] [id number] 11:52:00 Test Item Value Reference Range Interpretation Comments UA pH (test code = UA pH) 6.0 1 5.0-8.0 [facility] [id number] 11:52:00 Test Item Value Reference Range Interpretation Comments UA Turbidity (test code = Clear (06/13/18 5:52 UA Turbidity) AM) [facility] [id number] 11:52:00 Test Item Value Reference Range Interpretation Comments UA Color (test code = UA Color) Straw [facility] [id number] 11:52:00 Test Item Value Reference Range Interpretation Comments UA Protein (test code Negative (06/13/18 5:52 = UA Protein) AM) [facility] [id number] 11:52:00 Test Item Value Reference Range Interpretation Comments UA Glucose (test code Negative *NA*(06/13/18 = UA Glucose) 5:52 AM) [facility] [id number] 11:52:00 Test Item Value Reference Range Interpretation Comments UA Spec Grav (test code = UA Spec 1.019 1 Grav) [facility]] FOLATE, [id number] 10:35:01 Test Item Value Reference Range Interpretation Comments Folate Level (test code = 2284-8) 14.1 ng/ml >=3.0 [facility][QLH] VITAMIN D, 25-HYDROXY, LC/MS/[id number] 10:35:01 Test Item Value Reference Range Interpretation Comments Vitamin D, 25-OH, 17.5 ng/ml 30.0-100.0 Reference range is based Total (test code on recommen dations in the = Vitamin D, EndocrineSociet y Clinical 25-OH, Total) Practice Guide line (J Clin Endocrinol Akhfu0870;96:19 11-1930) [facility][H] Vit [id number] 10:35:01 Test Item Value Reference Range Interpretation [...] and i ts performance characteristics determined by [facility]. It has not been cleared orappro mamie by the Food and Drug Administration. Performed At: [address] [id number] ra Latasha GARCIA Ph:[phone] [facility][H] Vitamin E [id number] 10:35:01 Test Item Value Reference Range Interpretation Comments Alpha-Tocoph 7.9 mg/L 7.0-25.1 katrin (test code = Alpha-Tocoph katrin) Gamma-Tocoph 2.6 mg/L 0.5-5.5 Reference inter vals for alpha and katrin (test gamma-tocophero ldetermined from code = National Health and Nutrition Gamma-Tocoph ExaminationSurv ey, 4990-5844. katrin) Individuals wit h alpha-tocopherol levelsless than 5.0 mg/L are considered jammie min E deficient.This test was developed and its perform ance characteristics determined by [facility]. It has not been cleared orapproved by [facility] Food and Drug Administration. Performed At: [address] [id number] Sanjai MD Ph:[phone] [facility][QLH] CBC (INCLUDES DIFF/PLT)2018-01-06 10:09:01 Test Item Value Reference Range Interpretation Comments WBC (test code = 6690-2) 7.1 {K/CMM} 3.7-10.4 RBC (test code = 789-8) 4.30 {M/CMM} 4.20-5.40 Hgb (test code = 718-7) 12.3 g/dl 12.0-16.0 Hct (test code = 12751-6) 38.0 % 36.0-48.0 MCV (test code = 787-2) 88.4 fL 80.0-98.0 MCH (test code = 785-6) 28.5 pg 27.0-31.0 MCHC (test code = 786-4) 32.3 g/dl 32.0-36.0 RDW; Above High Threshold (test 15.9 % 11.5-14.5 code = 788-0) Platelet (test code = 17997-3) 222 {K/CMM} 133-450 Mean Platelet Volume; Above High 10.7 fL 7.4-10.4 Threshold (test code = 31125-4) [facility][QL] Ihwpuqjrslke7970-72-55 10:09:01 Test Item Value Reference Range Interpretation Comments Segmented Neutrophils (test code 70.9 % 45.0-75.0 = 74837-1) Monocytes (test code = 95804-9) 4.2 % 2.0-12.0 Lymphocytes (test code = 23731-6) 22.0 % 20.0-40.0 Eosinophils (test code = 74294-9) 2.5 % 0.0-4.0 Basophils (test code = 706-2) 0.4 % 0.0-1.0 Segs-Bands # (test code = 5.0 {K/CMM} 1.5-8.1 57715-4) Lymphocytes # (test code = 1.6 {K/CMM} 1.0-5.5 08204-9) Monocytes # (test code = 05809-1) 0.3 {K/CMM} 0.0-0.8 Eosinophils # (test code = 0.2 {K/CMM} 0.0-0.5 30084-3) [facility][QL] PTH, INTACT (WITHOUT CALCIUM)2018-01-06 10:09:01 Test Item Value Reference Range Interpretation Comments Parathyroid Hormone Intact (test 64.9 pg/ml 18.4-80.1 code = 2731-8) [facility][QL] CMP [id number] 10:09:01 Test Item Value Reference Range Interpretation Comments Sodium Level 143 {mEq/l} 135-145 (test code = 2951-2) Potassium Level 4.6 {mEq/l} 3.5-5.1 (test code = 2823-3) Chloride Level 107 {mEq/l} 95-109 (test code = 2075-0) Carbon Dioxide 30 {mEq/l} 24-32 (test code = 8-9) AGAP (test code = 10.6 {mEq/l} 10.0-20.0 44458-9) Glucose Lvl; 108 mg/dl 70-99 Adult reference range Above High values reflect the Threshold (test clinical adri delinesof the code = 2345-7) [employer]. Creatinine Lvl 0.60 mg/dl 0.50-1.40 (test code = 2160-0) Blood Urea 12 mg/dl 7-22 Nitrogen (test code = 3094-0) BUN/Creatinine 20 6-25 Ratio (test code = 3097-3) Total Protein 7.3 g/dl 6.4-8.4 (test code = 2885-2) Albumin Lvl (test 3.6 g/dl 3.5-5.0 code = 1751-7) Globulin (test 3.7 g/dl 2.7-4.2 code = 19116-4) A/G Ratio (test 1.0 0.7-1.6 code = 1759-0) Calcium Level 8.7 mg/dl 8.5-10.5 Total (test code = 69191-9) ALT (test code = 27 u/l 0-65 1743-4) AST (test code = 32 u/l 0-37 09669-5) Bili Total (test 0.4 mg/dl 0.2-1.3 code = 1974-2) Alk Phos (test 82 u/l 39-136 code = 1783-0) eGFR (test code = 113 The eGFR i s calculated 43536-1) {ML/MIN/1.7} using the CKD-E PI formula. In [...] National Kidney Disease Education Progr am(NKDEP) which additiona lly recommends that when the eGFR is used in patientswith ex tremes of body mass index for purposes of dotty g dosing, the eGFR should be multiplied by t he estimated BMI. [facility]] FOLATE, [id number] 10:09:01 Test Item Value Reference Range Interpretation Comments Folate Level (test code = 2284-8) 11.3 ng/ml >=3.0 [facility]] IRON, [id number] 10:09:01 Test Item Value Reference Range Interpretation Comments Iron (test code = 2498-4) 59 ug/dL 30-160 [facility][QL] LIPID [id number] 10:09:01 Test Item Value Reference Range Interpretation Comments Chol (test code = 2093-3) 125 mg/dl <=199 Trig; Above High Threshold (test 154 mg/dl <=149 code = 2571-8) HDL Cholesterol; Below Low 36 mg/dl >=61 Threshold (test code = 2085-9) CHD Risk; Below Low Threshold (test 3.47 3.90-5.80 code = 74668-2) LDL (test code = 34942-7) 58 mg/dl <=99 VLDL (test code = VLDL) 31 [facility]] VITAMIN [id number] 10:09:01 Test Item Value Reference Range Interpretation Comments Vitamin B12 Level (test code = 655 pg/ml 254-1320 2-9) [facility]] TSH, 3RD GENERATION W/REFLEX TO [id number] 10:09:01 Test Item Value Reference Range Interpretation Comments TSH (test code = 71102-5) 0.846 {uIU/ml} 0.360-3.740 [facility][QL] HEMOGLOBIN [id number] 10:09:01 Test Item Value Reference Range Interpretation Comments Hemoglobin A1c; Above High Threshold 6.4 % <=5.6 (test code = 4548-4) [facility]] VITAMIN D, 25-HYDROXY, LC/MS/[id number] 10:09:01 Test Item Value Reference Range Interpretation Comments Vitamin D, 25-OH, 16.6 ng/ml 30.0-100.0 Reference range is based Total (test code on recommen dations in the = Vitamin D, EndocrineSociet y Clinical 25-OH, Total) Practice Guide line (J Clin Endocrinol Lfgzv2227;96:19 11-1930) [facility][H] Vitamin E [id number] 10:09:01 Test Item Value Reference Range Interpretation Comments Alpha-Tocoph 5.7 mg/L 7.0-25.1 katrin (test code = Alpha-Tocoph katrin) Gamma-Tocoph 2.4 mg/L 0.5-5.5 Reference inter vals for alpha and katrin (test gamma-tocophero ldetermined from code = [facility] and Nutrition Gamma-Tocoph ExaminationSurv ey, . katrin) Individuals wit h alpha-tocopherol levelsless than 5.0 mg/L are considered jammie min E deficient.This test was developed and its perform ance characteristics determined by [facility]. It has not been cleared orapproved by [facility] Food and Drug Administration. Performed At: [facility] [id number] Jonathon Murdock MD Ph :[phone] [facility][H] Vit [id number] 10:09:01 Test Item Value Reference Range Interpretation Comments Vitamin A 22.1 ug/dL 33.1-100.0 Reference inter vals for vitamin Level (test A determined fr om code = [facility] and Nutrition Vitamin A Examination [...] the Food and Drug Administration. Performed At: [facility] [id number] zan Murdock MD Ph:[phone] [facility][QLH] VITAMIN B1, WHOLE [id number] 10:09:01 Test Item Value Reference Range Interpretation Comments Vitamin B1 128.4 66.5-200.0 This test was d eveloped and its Level (test nmol/L performance code = characteristics determined by Vitamin B1 [facility]. It has not been Level) cleared orappro mamie by the Food and Drug Administration. Performed At: [facility] [id number] [place], [place] [id number] k Jonathon Murdock MD Ph:[phone] [facility] [id number] 13:30:00 Test Item Value Reference Range Interpretation Comments CULTURE (BEAKER) (test code = 1095) No growth POCT-GLUCOSE [id number] 08:21:00 Test Item Value Reference Range Interpretation Comments POC-GLUCOSE METER 99 mg/dL 70-110 TESTED AT [place] [address] (BEAKER) (test code = [facility] [address] 1538) POCT-GLUCOSE [id number] 06:14:00 Test Item Value Reference Range Interpretation Comments POC-GLUCOSE METER 105 mg/dL 70-110 TESTED AT [place] [address] [facility] (test code = [facility] 1538) [address] BASIC METABOLIC [id number] 05:56:00 Test Item Value Reference Range Interpretation [...] PATIEN TS. CBC W/PLT COUNT & AUTO [id number] 05:15:00 Test Item Value Reference Range Interpretation [...] PERCENT (BEAKER) (test code = 2801) POCT-GLUCOSE [id number] 00:23:00 Test Item Value Reference Range Interpretation Comments POC-GLUCOSE METER 111 mg/dL 70-[address] [facility] [address] (MILAGROS) (test code = [place] 3554) [address] MR, MRA, BRAIN, WITHOUT [id number] 20:13:00Reason for exam:->Ischemic Stroke EvaluationFINAL REPORT MRA Head CLINICAL HISTORY: Stroke TECHNIQUE: MRA of the head utilizing 3-D dgbx-te-ktzasx technique, with 3-D reconstructions. COMPARISON: None FINDINGS: There is no evidence of intracranial aneurysm, focal stenosis, or major branch vessel occlusion. There is a origin of the right posterior cerebral artery. IMPRESSION: No evidence for a major [place] proximal branch vessel occlusion. MRA Neck CLINICAL HISTORY: Stroke TECHNIQUE: MRA of the neck utilizing 2-D and 3-D dzag-di-qsqpnb technique, with 3-D reconstructions. COMPARISON: None FINDINGS: The carotid arteries in the neck are patent including their bifurcations. There is antegrade flow in the vertebral arteries in the neck. IMPRESSION: No evidence of hemodynamically significant stenosis in the cervical carotid or vertebral arteries by NASCET criteria. Signed: Madeleine Mendoza MDReport Verified Date/Time: 12/08/2017 20:13:50 Reading Location: [facility] Radiology Reading Room MR, MRA, NECK, WITHOUT IV [id number] 20:13:00Reason for exam:->Ischemic Stroke EvaluationFINAL REPORT MRA Head CLINICAL HISTORY: Stroke TECHNIQUE: MRA of the head utilizing 3-D quyu-zj-guuqsg technique, with 3-D reconstructions. COMPARISON: None FINDINGS: There is no evidence of intracranial aneurysm, focal stenosis, or major branch vessel occlusion. There is a o rigin of the right posterior cerebral artery. IMPRESSION: No evidence for a major [place] proximal branch vessel occlusion. MRA Neck CLINICAL HISTORY: Stroke TECHNIQUE: MRA of the neck utilizing 2-D and 3-D bjsq-iu-hokmwa technique, with 3-D reconstructions. COMPARISON: None FINDINGS: The carotid arteries in the neck are patent including their bifurcations. There is antegrade flow in the vertebral arteries in the neck. IMPRESSION: No evidence of hemodynamically significant stenosis in the cervical carotid or vertebral arteries by NASCET criteria. Signed: Madeleine Mendoza Verified Date/Time: 12/08/2017 20:13:50 Reading Location: [facility] Radiology Reading Room MR, BRAIN, WITHOUT [id number] 20:02:00Reason for exam:->StrokeWhat is the patient's sedation [...] infarct, hemorrhage, or hydrocephalus. Signed: Madeleine Mendoza Verified Date/Time: 12/08/2017 20:02:46 Reading Location: [facility] Radiology Reading Room POCT- GLUCOSE [id number] 15:23:00 Test Item Value Reference Range Interpretation Comments POC-GLUCOSE METER 106 mg/dL 70-[address] [facility] [address] ([facility]) (test code = [facility] [place] 1538) [address] HEMOGLOBIN [id number] 11:57:00 Test Item Value Reference Range Interpretation Comments HEMOGLOBIN A1C ([facility]) (test code = 6.6 % 4.3-6.1 H 368) FastingTROPONIN [id number] 09:50:00 Test Item Value Reference Range Interpretation Comments TROPONIN I ([facility]) (test code = 397) < ng/mL 0.00-0.03 [...] acidosis, acute neurological disease, and persistent tachyarrhythmia.POCT-GLUCOSE [id number] 06:23:00 Test Item Value Reference Range Interpretation Comments POC-GLUCOSE METER 110 mg/dL 70-[address] [facility] 67[address] (BEAKER) (test code = KENNETH Kinney [place] 1538) [address] POCT-GLUCOSE [id number] 06:15:00 Test Item Value Reference Range Interpretation Comments POC-GLUCOSE METER 149 mg/dL 70-[address] [facility] 67 (BEAKER) (test code = [facility] [place] 1538) [address] VITAMIN B12 AND [id number] 05:50:00 Test Item Value Reference Range Interpretation Comments VITAMIN B12 (BEAKER) (test code = 688 pg/mL 213-816 774) FOLATE (BEAKER) (test code = 362) 12.1 ng/mL >=7.0 TSH/FREE T4 IF [id number] 05:29:00 Test Item Value Reference Range Interpretation Comments THYROID STIMULATING HORMONE 0.66 uIU/mL 0.35-4.94 (BEAKER) (test code = 772) BASIC METABOLIC [id number] 05:11:00 Test Item Value Reference Range Interpretation [...] NOT APPLICABLE FOR DIALYSIS PATIEN TS. FastingLIPID [id number] 05:11:00 Test Item Value Reference Range Interpretation [...] 160-189 Very High >=190 FastingRAPID DRUG SCREEN, [id number] 04:34:00 Test Item Value Reference Range Interpretation [...] situations. Chain of custody not maintained. Some iicv-rdw-fknpclo medications, as well as adulterants, may cause inaccurate results. Clinical correlation should be applied. A more comprehensive drug screen or confirmation of a detected drug may be performed upon request. URINALYSIS W/ [id number] 04:09:00 Test Item Value Reference Range Interpretation [...] 2795) Collection CBC W/PLT COUNT & AUTO [id number] 03:54:00 Test Item Value Reference Range Interpretation [...] PERCENT (BEAKER) (test code = 2801) TROPONIN [id number] 23:56:00 Test Item Value Reference Range Interpretation [...] acute neurological disease, and persistent tachyarrhythmia.HEPATIC FUNCTION [id number] 23:49:00 Test Item Value Reference Range Interpretation [...] code = 17 U/L 6-55 347) PROTHROMBIN [id number] 23:40:00 Test Item Value Reference Range Interpretation [...] mechanical heart valves.CBC W/PLT COUNT & AUTO [id number] 23:27:00 Test Item Value Reference Range Interpretation [...] = 2801) RAD, CHEST, 1 VIEW, NON [id number] 21:51:00Reason for exam:->Stroke work up.Is the patient ?->UnknownShould this be performed at the bedside?->YesFINAL REPORT Clinical History: Stroke workup Comparison Study: None Findings: The cardiac silhouette is enlarged. The lungs are within normal limits. The pleural spaces are clear. No significant bony or soft tissue abnormalities are seen. Impression: Cardiomegaly. Signed: [place] Steve MDReport Verified Date/Time: 12/07/2017 21:51:29 Reading Location: [facility] C013W Consult Reading Room POCT-GLUCOSE [id number] 11:34:00 Test Item Value Reference Range Interpretation Comments POC-GLUCOSE METER 84 mg/dL 70-[address] [facility] 67[address] (BEAKER) (test code = [place] [address] 1538) [id number] 08:58:00 Test Item Value Reference Range Interpretation Comments PHOSPHORUS (BEAKER) (test code = 4.4 mg/dL 2.3-4.7 604) [id number] 08:58:00 Test Item Value Reference Range Interpretation Comments MAGNESIUM (BEAKER) (test code = 2.3 mg/dL 1.6-2.6 627) BASIC METABOLIC [id number] 08:58:00 Test Item Value Reference Range Interpretation [...] APPLICABLE FOR DIALYSIS PATIEN TS. HEPATIC FUNCTION [id number] 08:58:00 Test Item Value Reference Range Interpretation Comments TOTAL PROTEIN (BEAKER) (test code = 6.8 gm/dL 6.0-8.3 770) ALBUMIN (BEAKER) (test code = 1145) 3.6 g/dL 3.5-5.0 BILIRUBIN TOTAL ([facility]) (test code 0.4 mg/dL 0.2-1.2 = 377) BILIRUBIN DIRECT ([facility]) (test 0.2 mg/dL 0.1-0.5 code = 706) ALKALINE PHOSPHATASE ([facility]) (test 59 U/L 40-150 code = 346) AST (SGOT) ([facility]) (test code = 24 U/L 5-34 353) ALT (SGPT) ([facility]) (test code = 17 U/L 6-55 347) POCT-GLUCOSE [id number] 08:20:00 Test Item Value Reference Range Interpretation Comments POC-GLUCOSE METER 143 mg/dL 70-110 H TESTED AT [place] [address] ([facility]) (test code = KENNETH Kinney [facility] 1538) [address] PROTHROMBIN [id number] 05:55:00 Test Item Value Reference Range Interpretation Comments PROTIME ([facility]) (test code = 13.4 seconds 11.7-14.7 759) INR ([facility]) (test code = 370) 1.0 <=5.9 RECOMMENDED COUMADIN/WARFARIN INR THERAPY RANGESSTANDARD DOSE: 2.0 - 3.0 Includes: PROPHYLAXIS for venous thrombosis, systemic embolization; TREATMENT for venous thrombosis and/or pulmonary embolus.HIGH RISK: Target INR is 2.5-3.5 for patients with mechanical heart valves.POCT-GLUCOSE [id number] 20:32:00 Test Item Value Reference Range Interpretation Comments POC-GLUCOSE METER 90 mg/dL 70-110 TESTED AT [place] [address] ([facility]) (test code = KENNETH Kinney [facility] [address]38) POCT-GLUCOSE [id number] 16:47:00 Test Item Value Reference Range Interpretation Comments POC-GLUCOSE METER 79 mg/dL 70-110 TESTED AT [place] [address] ([facility]) (test code = [facility] Ary[place] [facility] [address]38) POCT-GLUCOSE [id number] 07:47:00 Test Item Value Reference Range Interpretation Comments POC-GLUCOSE METER 97 mg/dL 70-110 TESTED AT [place] [address] ([facility]) (test code = [facility] [address]38) TROPONIN [id number] 07:02:00 Test Item Value Reference Range Interpretation [...] failure, acidosis, acute neurological disease, and persistent tachyarrhythmia.[id number] 07:00:00 Test Item Value Reference Range Interpretation Comments PHOSPHORUS (BEAKER) (test code = 5.0 mg/dL 2.3-4.7 H 604) [id number] 07:00:00 Test Item Value Reference Range Interpretation Comments MAGNESIUM (BEAKER) (test code = 1.9 mg/dL 1.6-2.6 627) BASIC METABOLIC [id number] 07:00:00 Test Item Value Reference Range Interpretation [...] APPLICABLE FOR DIALYSIS PATIEN TS. HEPATIC FUNCTION [id number] 07:00:00 Test Item Value Reference Range Interpretation [...] code = 21 U/L 6-55 347) PROTHROMBIN [id number] 06:31:00 Test Item Value Reference Range Interpretation Comments PROTIME (BEAKER) (test code = 14.0 seconds 11.7-14.7 759) INR (BEAKER) (test code = 370) 1.1 <=5.9 RECOMMENDED COUMADIN/WARFARIN INR THERAPY RANGESSTANDARD DOSE: 2.0 - 3.0 Includes: PROPHYLAXIS for venous thrombosis, systemic embolization; TREATMENT for venous thrombosis and/or pulmonary embolus.HIGH RISK: Target INR is 2.5-3.5 for patients with mechanical heart valves.CBC W/PLT COUNT & AUTO [id number] 06:28:00 Test Item Value Reference Range Interpretation [...] = 2801) CREATINE KINASE (CK), TOTAL AND [id number] 01:39:00 Test Item Value Reference Range Interpretation Comments CREATINE KINASE TOTAL (BEAKER) 55 U/L 29-200 (test code = 380) CREATINE KINASE-MB (BEAKER) (test 1.1 ng/mL 0.0-6.6 code = 750) CREATINE KINASE-MB INDEX (BEAKER) 2.0 % (test code = 395) CK-MB Reference Range:<6.7 Normal6.7-10.0 Borderline>10.0 AbnormalTROPONIN [id number] 01:39:00 Test Item Value Reference Range Interpretation [...] acidosis, acute neurological disease, and persistent tachyarrhythmia.POCT-GLUCOSE [id number] 12:39:00 Test Item Value Reference Range Interpretation Comments POC-GLUCOSE METER 80 mg/dL 70-110 TESTED AT [place] [address] ([facility]) (test code = [facility] [address]) POCT-GLUCOSE [id number] 07:07:00 Test Item Value Reference Range Interpretation Comments POC-GLUCOSE METER 100 mg/dL 70-110 TESTED AT [place] [address] ([facility]) (test code = [facility] 1538) [address] POCT-GLUCOSE [id number] 21:12:00 Test Item Value Reference Range Interpretation Comments POC-GLUCOSE METER 138 mg/dL 70-110 H TESTED AT [place] [address] ([facility]) (test code = [facility] 1538) [address] POCT-GLUCOSE [id number] 12:04:00 Test Item Value Reference Range Interpretation Comments POC-GLUCOSE METER 113 mg/dL 70-110 H TESTED AT [place] [address] ([facility]) (test code = [facility] 1538) [address] BASIC METABOLIC [id number] 04:26:00 Test Item Value Reference Range Interpretation [...] PATIEN TS. CBC W/PLT COUNT & AUTO [id number] 04:02:00 Test Item Value Reference Range Interpretation [...] (test code = 2801) CLOSTRIDIUM DIFFICILE TOXIN [id number] 13:44:00 Test Item Value Reference Range Interpretation [...] a positive result is not recommended.CT, CTANGIO [id number] 06:59:00Addendum BeginsREPORT STATUS:A Three-dimensional post intravenous contrast images of the cerebral vasculature were created on a free standing workstation for better visualization of cerebral vascular anatomy and pathology. Signed: Skip Rodas MDReport Verified Date/Time: 04/12/2017 06:59:20 Reading Location: [address] Ortho Consult Reading RoomAddendum EndsFINAL REPORT [...] Hooks on 04/07/2017 at 12:[address] a ngiogram of the brain: CLINICAL HISTORY: Left-sided weakness status post TPA at an outside hospital.Comparison exam: None TECHNIQUE: CT scan of the [...] arteries. Normal basilar artery. Normal right posterior cerebralartery which arises off of the right internal [...] MDReport Verified Date/Time: 04/07/2017 01:12:44 Reading Location: [facility] C013X Ortho Consult Reading Room BASIC METABOLIC [id number] 05:37:00 Test Item Value Reference Range Interpretation [...] RED BLOOD CELLS 0 /100 WBC 0-0 ([facility]) (test code = 413) POCT-GLUCOSE [id number] 17:55:00 Test Item Value Reference Range Interpretation Comments POC-GLUCOSE METER 111 mg/dL 70-110 H TESTED AT [place] [address] ([facility]) (test code = [facility] 1538) [address] POCT-GLUCOSE [id number] 12:02:00 Test Item Value Reference Range Interpretation Comments POC-GLUCOSE METER 100 mg/dL 70-110 TESTED AT [place] [address] ([facility]) (test code = [facility] 1538) [address] POCT-GLUCOSE [id number] 07:50:00 Test Item Value Reference Range Interpretation Comments POC-GLUCOSE METER 110 mg/dL 70-110 TESTED AT [place] [address] ([facility]) (test code = [facility] 1538) [address] POCT-GLUCOSE [id number] 16:56:00 Test Item Value Reference Range Interpretation Comments POC-GLUCOSE METER 104 mg/dL 70-110 TESTED AT [place] [address] ([facility]) (test code = [facility] 1538) [address] POCT-GLUCOSE [id number] 12:22:00 Test Item Value Reference Range Interpretation Comments POC-GLUCOSE METER 84 mg/dL 70-110 TESTED AT [place] [address] ([facility]) (test code = [facility] [address]) HEMOGLOBIN [id number] 08:46:00 Test Item Value Reference Range Interpretation Comments HEMOGLOBIN A1C (BEAKER) (test code = 6.2 % 4.3-6.1 H 368) BASIC METABOLIC [id number] 06:42:00 Test Item Value Reference Range Interpretation [...] PATIEN TS. CBC W/PLT COUNT & AUTO [id number] 06:19:00 Test Item Value Reference Range Interpretation [...] PERCENT (BEAKER) (test code = 2801) POCT-GLUCOSE [id number] 12:07:00 Test Item Value Reference Range Interpretation Comments POC-GLUCOSE METER 110 mg/dL 70-[address] [facility] [address] ([facility] (test code = [place] 1538) [address] CT, BRAIN, WITHOUT [id number] 06:55:00FINAL REPORT Clinical history : Decreased alertnessComparison [...] MDReport Verified Date/Time: 04/09/2017 06:55:25 Reading Location: [address] Ortho ConsultReading Room BASIC METABOLIC [id number] 05:57:00 Test Item Value Reference Range Interpretation [...] PATIEN TS. CBC W/PLT COUNT & AUTO [id number] 04:54:00 Test Item Value Reference Range Interpretation [...] PERCENT (BEAKER) (test code = 2801) POCT-GLUCOSE [id number] 01:34:00 Test Item Value Reference Range Interpretation Comments POC-GLUCOSE METER 92 mg/dL 70-[address] [facility] 67[address] (BEAKER) (test code = [facility] [address]38) POCT-GLUCOSE [id number] 19:20:00 Test Item Value Reference Range Interpretation Comments POC-GLUCOSE METER 85 mg/dL 70-[address] [facility] 67[address] ([facility] (test code = [facility] [address]) CT, BRAIN, WITHOUT [id number] 15:47:00FINAL REPORT CT head without contrast. Comparisons: April 07 Reason for exam:Stroke. Discussion: Multiple axial CT images of the head are provided without contrast evaluated in brain and bone windows. Dose modulation, iterative reconstruction, and/or weight based adjustment of the mA/kV was utilized to reduce the radiation dose to as low as reasonably achievable. There is no CT evidence of intracranial hemorrhage, mass-effect, hydrocephalus, shift, or extra-axial collections.While I see no definitive acute large vessel infarction, please note that CT is not sensitive in detecting or distinguishing acute ischemic disease. The visualized dural sinus regions, orbital contents, paranasal sinuses, bones and surrounding soft tissues are unremarkable. Impressions: 1. No specific evidence of acute intracranial abnormality. Signed: Mynor Tijerinaeport Verified Date/Time: 04/08/2017 15:47:42 POCT-GLUCOSE [id number] 12:44:00 Test Item Value Reference Range Interpretation Comments POC-GLUCOSE METER 94 mg/dL 70-[address] [facility] 67[address] (BEAKER) (test code = KENNETH Kinney [facility] [address]38) BASIC METABOLIC [id number] 05:05:00 Test Item Value Reference Range Interpretation [...] PATIEN TS. CBC W/PLT COUNT & AUTO [id number] 04:28:00 Test Item Value Reference Range Interpretation [...] PERCENT (BEAKER) (test code = 2801) POCT-GLUCOSE [id number] 17:32:00 Test Item Value Reference Range Interpretation Comments POC-GLUCOSE METER 90 mg/dL 70-110 TESTED AT [place] [address] ([facility] (test code = [place] [address]) POCT-GLUCOSE [id number] 12:02:00 Test Item Value Reference Range Interpretation Comments POC-GLUCOSE METER 91 mg/dL 70-110 TESTED AT [place] [address] (BEAKER) (test code = KENNETH Kinney [facility] [address]) EEG AWAKE AND [id number] 11:38:00Reason for exam:->R/O subclinical seizuresDATE OF [id number] OF REPORT: [id number]: [id number]: 17- 1801Start time: 09:54Stop time: 10:18ICD-10: G 93.40CPT Code: 56029 HISTORY: 41 y.o. female with history of morbid obesity, DM2 whopresented today to OSH with R sided facial droop and LUE weakness . Patient was evaluated at OSH where patient was started with tPA after normal CT. Now with acute encephalopathy MEDICATIONS THAT COULDAFFECT EEG: TECHNICAL SUMMARY: This is a digital EEG recorded with 32 input channels on a [employer] system and then reviewed with bipolar and [...] sensitivity for differentiating mild encephalopathy from normal sri-sleep somnolence.An EEG without epileptiform discharges does not exclude the possibility of epilepsy. If the clinicalsuspicion of epilepsy remains, consider additional EEG recordings. Javi Mae MDNeurophysiologyFell [id number] Note: I personally reviewed this EEG record in its entirety and I agree with the details of this report. Kitty Montejo MD, PhDEpilepsy Attending CREATINE KINASE (CK), TOTAL AND [id number] 09:35:00 Test Item Value Reference Range Interpretation Comments CREATINE KINASE TOTAL (BEAKER) 52 U/L 29-200 (test code = 380) CREATINE KINASE-MB (BEAKER) (test 1.2 ng/mL 0.0-6.6 code = 750) CREATINE KINASE-MB INDEX (BEAKER) 2.3 % (test code = 395) CK-MB Reference Range:<6.7 Normal6.7-10.0 Borderline>10.0 AbnormalTROPONIN [id number] 09:31:00 Test Item Value Reference Range Interpretation [...] failure, acidosis, acute neurological disease, and persistent tachyarrhythmia.[id number] 09:28:00 Test Item Value Reference Range Interpretation Comments AMMONIA (BEAKER) (test code = 348) 34 mol/L 18-72 TSH/FREE T4 IF [id number] 04:28:00 Test Item Value Reference Range Interpretation Comments THYROID STIMULATING HORMONE 1.12 uIU/mL 0.35-4.94 (BEAKER) (test code = 772) VITAMIN B12 AND [id number] 04:28:00 Test Item Value Reference Range Interpretation Comments VITAMIN B12 (BEAKER) (test code = 417 pg/mL 213-816 774) FOLATE (BEAKER) (test code = 362) 13.6 ng/mL >=7.0 CBC W/PLT COUNT & AUTO [id number] 03:27:00 Test Item Value Reference Range Interpretation [...] = 2801) CREATINE KINASE (CK), TOTAL AND [id number] 03:11:00 Test Item Value Reference Range Interpretation Comments CREATINE KINASE TOTAL (BEAKER) 71 U/L 29-200 (test code = 380) CREATINE KINASE-MB (BEAKER) (test 1.5 ng/mL 0.0-6.6 code = 750) CREATINE KINASE-MB INDEX (BEAKER) 2.1 % (test code = 395) CK-MB Reference Range:<6.7 Normal6.7-10.0 Borderline>10.0 AbnormalFastingFastingTROPONIN [id number] 03:11:00 Test Item Value Reference Range Interpretation [...] acute neurological disease, and persistent tachyarrhythmia.FastingBASIC METABOLIC [id number] 03:04:00 Test Item Value Reference Range Interpretation [...] NOT APPLICABLE FOR DIALYSIS PATIEN TS. FastingLIPID [id number] 03:04:00 Test Item Value Reference Range Interpretation [...] 160-189 Very High >=190 Fasting HEPATIC FUNCTION [id number] 03:04:00 Test Item Value Reference Range Interpretation [...] moderately (test code = 347) hemolyzed Fasting Notes Date/Time Note Provider Source 2021-12-29 19:20:00-00:00 [facility] ([facility]) EMERGENCY PROVIDER REPORT REPORT#:[id number] REPORT STATUS: Signed DATE:12/29/21 TIME: 1919 PATIENT: KELLE CALDERÓN UNIT #: [id number] ROOM: BED: AGE: 46 SEX: F PCP PHYS: No Primary or Family Ph ysician SERVICE AUTHOR: Elizabeth Shelton MD * ALL edits or amendments must be made on the el ectronic/computer document * HPI-Abd Pain F 40 and Over General Initial Greet Date/Time 12/29/[address] Steel sleeve gastrectomy 1 year ago. now with epigastric and lower abdominal pain. Presentation Chief Complaint Abdominal pain Sudden in Onset? No Free Text HPI Notes Free Text HPI Notes D6-year-old female with a past medical history o f obesity, hypertension, diabetes who had a sleeve gastrectomy [address] Abdullahi presents emergency department complaining of epigastric a nd lower abdominal pain. Additional symptoms of nausea, vomiting and cons tipation. Patient describes a severe pain that comes and goes however has not noted any provocative factors. Patient notes she was previously seen in an [facility] emergency department on Tuesday and told she was constipated. Risk-Abd Pain F 40 and Over )( Abdominal Aortic Aneurysm Risk factors review ed Review of Systems ROS Statements All systems rev neg except as marked. Focused Review of Systems Constitutional Denies: Chills, Fatigue, Fever, Malaise, Weaknes s - generalized. Respiratory Denies: Cough, non-productiv e, Cough, productive, Dyspnea on exertion, Shortness of breath, Wheezing. Cardiovascular Denies: Chest pain, Dyspnea on exertion, Edema, Orthopnea, Palpitations, Parox nocturnal dyspnea, Syncope. GI Reports: Abdominal pain, Diarrhea, Nause a. Denies: Anorexia, Belching, Bloody/ tarry stool, Constipation, D ysphagia, Hematemesis, Hematochezia, Mucousy stool, Melena, Rectal pain, Vomiting. Past Medical History - Adult Stated Complaint ABDOMINAL PAIN Allergies Coded Allergies: Penicillins (UNKNOWN 05/02/20) clopidogrel (From PLAVIX) (UNKNOWN 05/02/20) warfarin (UNKNOWN 05/02/20) Home Medications Reported Medications Lisinopril 40 MG PO DAILY Aspirin 81 MG PO DAILY Ergocalciferol (Vitamin D2) (Vitamin D2) 50,000 UNITS PO Q7D Gabapentin (Neurontin) 300 MG PO TID Magnesium Oxide (Mag-Oxide) 400 MG PO DAILY Carbamazepine (Tegretol) 200 MG PO Q12H Atorvastatin (Lipitor) 40 MG PO DAILY Methocarbamol (Robaxin) (Unknown Dose) Acetaminophen/Codeine (Tylenol With Codeine #3 3 00/30 Mg) (Unknown Dose) Lactulose (Lactulose 10 GM/15ML) Calculated Suicide Risk (nurs) No risk Past Medical History: Reports: Diabetes mellitus, GERD/gastritis, Hype rtension. Additional Medical History Morbid obesity, JUDITH Past Surgical History: Reports: Bariatric procedure (Lap gastri c sleeve), Cholecystectomy, , Hernia repair (Umbilical, hiatal), Hysterectomy. Smoking status for patients 13 years old or olde r: Never Smoker Physical Exam Vital Signs Vital Signs First Documented: Result Date Time Pulse Ox 100 12/29 1333 B/P 119/75 12/29 1333 B/P Mean 89 12/29 1333 O2 Delivery Room air 12/29 133 Temp 36.9 12/29 1333 Pulse 70 12/29 1333 Resp 17 12/29 1333 Last Documented: Result Date Time Pulse Ox 98 12/29 210 B/P 129/72 12/29 210 B/P Mean 91 12/29 2101 Temp 36.5 12/29 210 Pulse 56 12/29 2102 Resp 16 12/29 210 O2 Delivery Room air 12/29 1540 Review of Vital Signs Reviewed, Vital signs norm al Free Text PE Notes Free Text PE Notes General: Well-appearing, well-nourished, no appa rent distress. Head: Normocephalic atraumatic Eyes: EOMI, PERRLA, normal conjunctiva, no scler al icterus HEENT: Airway patent, mucous membranes moist, ph arynx normal Neck: Supple, no meningeal signs, no JVD Respiratory/chest: Breath sounds normal, breath sounds equal bilaterally, no respiratory distress, no rales, no rhonchi, no w heezing Cardiovascular: Heart rate normal, regular rhyth m, heart sounds normal, peripheral circulation normal Abdomen GI: Soft, (+) mild tenderness, n o guarding, no rebound, no distention, no hernia, no palpable mass, no pulsatile mass MS back: Normal inspection, nontender, no costov ertebral angle tenderness Skin: Normal color, warm, dry, normal turgor Extremities: No edema, full range of motion, karyn rovascular intact Neuro: Alert and oriented x3, cranial ne rves II through XII grossly intact, no motor deficit, no sensory deficit, no cerebellar signs, normal gait Psych: Normal affect, normal mood, normal concen tration, normal insight Interpretation Diagnostics Lab Results Interpretation Results Laboratory Tests 12/29/21 1422: [Embedded Image Not Available] Laboratory Tests: 12/29 12/29 1422 1422 Chemistry Sodium (136 - 145 mmol/L) 144 Potassium (3.5 - 5.1 mmol/L) 3.5 Chloride (98 - 107 mmol/L) 110 H Carbon Dioxide (20 - 31 mmol/L) 29 BUN (9 - 23 mg/dL) 10 Creatinine (0.55 - 1.02 mg/dL) 0.60 Glomerular Filtr Rate (>60 mL/min) >=60 max est imate Glucose (74 - 106 mg/dL) 73 L Calcium (8.7 - 10.4 mg/dL) 8.6 L Total Bilirubin (0.3 - 1.2 mg/dL) 0.6 AST (<34 U/L) 18 ALT (10 - 49 U/L) < 7 L Total Alk Phosphatase (46 - 116 U/L) 61 Troponin I High Sens (27.36 - 66.23 pg/mL) < 2 .5 L Total Protein (5.7 - 8.2 g/dL) 6.7 Albumin (3.2 - 4.8 g/dL) 4.0 Lipase (12 - 53 U/L) 25 Hematology WBC (4.8 - 10.8 x10 3/uL) 6.6 RBC (4.20 - 5.40 x10 6/uL) 4.19 L Hgb (12.0 - 16.0 g/dL) 12.5 Hct (37.0 - 47.0 %) 38.0 MCV (81.0 - 99.0 fL) 90.7 MCH (27 - 31 pg) 29.8 MCHC (33 - 36.5 G/DL) 32.9 L RDW (12.9 - 16.9 %) 13.6 Plt Count (150 - 440 x10 3/uL) 191 MPV (8.9 - 12.4 fL) 12.0 Neut % (Auto) (42.2 - 75.2 %) 69.7 Lymph % (Auto) (20.5 - 51.1 %) 23.9 [place] % (Auto) (1.7 - 9.3 %) 4.7 Eos % (Auto) (0.0 - 7.0 %) 1.2 Baso % (Auto) (0 - 2.5 %) 0.2 Neut # (Auto) (1.80 - 7.70 x10 3/uL) 4.60 Lymph # (Auto) (1.00 - 4.80 x10 3/uL) 1.58 [place] # (Auto) (0.00 - 0.80 x10 3/uL) 0.31 Eos # (Auto) (0.00 - 0.45 x10 3/uL) 0.08 Baso # (Auto) (0.0 - 0.20 x10 3/uL) 0.01 Urines Urine Color (YELLOW DISCRIPT) YELLOW Urine Appearance (CLEAR DISCRIPT) CLEAR Urine pH (5.0 - 9.0) 7.0 Ur Specific [place] (1.005 - 1.030) <=1.005 L Urine Protein (NEGATIVE mg/dL) NEGATIVE Urine Glucose (UA) (NEGATIVE mg/dL) NEGATIVE Urine Ketones (NEGATIVE mg/dL) NEGATIVE Urine Blood (NEGATIVE) NEGATIVE Urine Nitrite (NEGATIVE) NEGATIVE Urine Bilirubin (NEGATIVE) NEGATIVE Urine Urobilinogen (0.2 - 1.0 mg/dL) 0.2 Ur Leukocyte Esterase (NEGATIVE) TRACE A Urine RBC (0 - 2 #RBC/HPF) 0-2 Urine WBC (0 - 2 #WBC/HPF) 3-5 A Ur Squamous Epith Cells (NONE - TRACE /LPF) 1+ A Urine Bacteria (NONE - TRACE /HPF) 1+ A Urine HCG, Qual (NEGATIVE) NEGATIVE Recent Impressions: CAT SCAN - CT ABD PELVIS W/CONT 12/29 6445 Report Impression - Status: SIGNED Entered: 12/29/2021 3785 IMPRESSION: 1. Comparison made to 2021. 2. No acute findings or changes in the abdomen o r pelvis. 3. Colonic diverticulosis without diverticulitis . 4. Status post sleeve gastrectomy without obstru ction or perforation. 5. Enlarged fatty liver. Impression By: Kael Loving M.D. Lab Imaging Statement Laboratory radiographic studies reviewed and con sidered in the medical decision-making. ECG #1 Interpretation Date 01/01/22 Time 1357 Interpreted by and reviewed by me, ED physician NL ECG Interpretation No acu te ischemic changes, No STEMI, Normal QRS, Normal ST waves, Normal T waves, Normal axis, Normal inter vals, Adequate tracing, sinus bradycardia, Rate=55 Re-Evaluation MDM Free Text MDM Notes Free Text MDM Notes Pt says she has had bradycardia in 40'2 in the p ast and has seen cardiology about this. I advised pt to follow up with cathy randall. )( Re-Evaluation/Progress #1 )( Re-Eval Status Improved, Pt feels improved and is in agreement with d/c home and f/u ED Course Medication(s) Ordered Medication(s) Ordered: Anti-Infective Agents Sig/Iliana Start time Last Medication Dose Route Stop Time Status Admin Ceftriaxone Sodium 1,000 MG X1ED STA 12/29 1519 DC 12/29 Sodium Chloride 10 ML IV 12/29 1523 1527 Central Nervous System Agents Sig/Iliana Start time Last Medication Dose Route Stop Time Status Admin Morphine Sulfate 4 MG X1ED STA 12/29 1435 DC 0 12/29 IV 12/29 1436 1526 Diagnostic Agents Sig/Iliana Start time Last Medication Dose Route Stop Time Status Admin Iopamidol 0 .STK-MED ONE 12/29 1709 DC 12/29 IV 1804 Diatrizoate Meglum/ 30 ML ONCE ONE 12/29 1445 D C 12/29 Diatrizoate Sod PO 12/29 1446 1547 Electrolytic, Caloric, And Jose R Sig/Iliana Start time Last Medication Dose Route Stop Time Status Admin Sodium Chloride 1,000 ML X1ED STA 12/29 1435 DC 12/29 IV 12/29 1436 1526 Gastrointestinal Drugs Sig/Iliana Start time Last Medication Dose Route Stop Time Status Admin Ondansetron HCl 4 MG X1ED STA 12/29 1435 DC IV 12/29 1436 1527 Consultation Consultation Referral/Consult Name Giuliano Abdullahi MD Requested Call Time 1840 Requested Call Date 12/29/21 Call Returned Time 1840 Call Returned Date 12/29/[address] Free [address] Notes Dr[address] Steel in agreement with d/c pt home a nd f/u in clinic Patient Discharge Departure Vital Signs/Condition Vital Signs First Documented: Result Date Time Pulse Ox 100 12/29 1333 B/P 119/75 12/29 1333 B/P Mean 89 12/29 1333 O2 Delivery Room air 12/29 1333 Temp 36.9 12/29 1333 Pulse 70 12/29 1333 Resp 17 12/29 1333 Last Documented: Result Date Time Pulse Ox 98 12/29 2102 B/P 129/72 12/29 2102 B/P Mean 91 07/19 2102 Temp 36.5 07/19 2102 Pulse 56 12/29 2101 Resp 16 12/29 2101 O2 Delivery Room air 12/29 1540 All vital signs available at the time of this en try have been reviewed. Condition Stable Clinical Impression Clinical Impression Primary Impression: Abdominal pain Secondary Impressions: Sinus bradycardia Time of Impression 1925 Disposition Decision Discharge )( Discharged to Home Yes )( Time 1925 )( Date 12/29/21 Discharge/Care Plan (Auto) Prescriptions Current Visit Scripts Acetaminophen/Codeine (Tylenol With Code ine #3 300/30 Mg) 1 TAB PO Q4H PRN PRN ACUTE PAIN Acetaminophen/Codeine (Tylenol With Codeine #3 300/30 Mg) 1 TAB PO Q4H PRN PRN ACUTE PAIN #15 TABS Ondansetron 4 MG PO Q6H PRN PRN NAUSEA/VOMITING Ondansetron 4 MG PO Q6H PRN PRN NAUSEA/VOMITING #15 TABS Referrals Provider Referral: Giuliano Abdullahi MD Follow-Up: 2-3 Days Address: [address] [place] [address] [address] [place] [id number] Provider Referral: Chandler Greenberg MD Follow-Up: 2-3 Days Notes: Or the inspector receiving of your choice. Address: [address] [place] [address] [address] [place] [address] Discharge Note I have spoken with the patie nt and/or caregivers. I have explained the patient's condition, diagnoses and cortez atment plan based on the information available to me at this time. I have answered the patient's and/ or caregiver's questions and addressed any concerns. The patient and/or careg miki have as good an understanding of the patient 's diagnosis, condition and treatment plan as can be expected at this point. The vital signs have bee n stable. The patient's condition is stable and appr opriate for discharge from the emergency department. The patient will pursue further outpatient evalu ation with the primary care physician or other designated or consulting phys ician as outlined in the discharge instructions. The patient and/or caregivers are agreeable to this plan of care and follow-up instructions have been exp lained in detail. The patient and/or caregivers have received these instructio ns in written format and have expressed an understanding of the discharge inst ructions. The patient and/or caregivers are aware that any significant change in condition or worsening of symptoms should prompt an immediate return to [facility] or the closest emergency department or a call to 911. Electronically Signed by Elizabeth Shelton MD on at 1133 RPT #:[id number] END OF REPORT 2021-12-29 13:57:00-00:00 [id number] [facility] [address] [place] [address] PATIENT NAME: KELLE CALDERÓN ADMIT DATE: 0 12/29/21 ACCOUNT NO: [id number] ROOM NO: AGE: 46 REPORT TYPE: eELECTROCARDIOGRAM SEX: F ADMITTING PHYSICIAN: ATTENDING PHYSICIAN: Order: [id number] Test Reason : Test Date/Time Stamp: TueDec 29 2021 13:57:54 Blood Pressure : / mmHG Vent. Rate : 055 BPM Atrial Rate : 055 BPM P-R Int : 136 ms QRS Dur : 086 ms QT Int : 424 ms P-R-T Axes : 007 016 012 degree s QTc Int : 405 ms Sinus bradycardia Nonspecific T wave abnormality Abnormal ECG When compared with ECG of 30-APR-2021 17:24, Nonspecific T wave abnormality now evident in An terior leads Confirmed by AVIVA HOLBROOK ([id number]) on 01/08/2022 3 :08:34 PM Referred By: Self Referred Confirmed by:AVIVA DANIELLE Electronically Signed by Aviva Holbrook MD on at 1508 PATIENT NAME: KELLE CALDERÓN ACCOUNT #: B [id number] 2021-06-07 11:59:00-00:00 [facility] ([facility]) EMERGENCY PROVIDER REPORT REPORT#:[id number] REPORT STATUS: Signed DATE:06/07/21 TIME: 1159 PATIENT: KELLE CALDERÓN UNIT #: [id number] ROOM: [facility] BED: 5 AGE: 45 SEX: F PCP PHYS: Undefined Provider SERVICE AUTHOR: Sabino Mata * ALL edits or amendments must be made on the el ectronic/computer document * HPI-Abd Pain F 40 and Over Free Text HPI Notes Free Text HPI Notes PMH of obesity, HTN, T2DM, GERD, JUDITH. Recent lap gastric sleeve and hiatal hernia repair and liver bx w ith Dr. Abdullahi in April 2021. Presents today with c/o epigastric abdominal pain and continued nausea/vomiting for the past week. States she spoke with a nurse in clinic an d was prescribed antacid medications but not helping. States she is still only on a clear liquid diet. Notes she is having watery bowel movements. No r eported chest pain, sob, back pain, constipation, dysuria. General Initial Greet Date/Time 06/07/21 1151 PCP Bariatric Surgery: Dr. Giuliano Abdullahi Presentation Chief Complaint Abdominal pain Hx Obtained From Patient Sudden in Onset? No Review of Systems ROS Statements All systems rev neg except as marked. Past Medical History - Adult Stated Complaint abd pain Allergies Coded Allergies: Penicillins (UNKNOWN 05/02/20) clopidogrel (From PLAVIX) (UNKNOWN 05/02/20) warfarin (UNKNOWN 05/02/20) Home Medications Reported Medications Lisinopril 40 MG PO DAILY Aspirin 81 MG PO DAILY Ergocalciferol (Vitamin D2) 50,000 UNITS PO Q7D Gabapentin (Neurontin) 300 MG PO TID Magnesium Oxide (Mag-Oxide) 400 MG PO DAILY Pantoprazole Dr (Protonix) 40 MG PO BID Carbamazepine (Tegretol) 200 MG PO Q12H Atorvastatin (Lipitor) 40 MG PO DAILY Past Medical History: Reports: Diabetes mellitus, GERD/gastritis, Hype rtension. Additional Medical History Morbid obesity, JUDITH Past Surgical History: Reports: Bariatric procedure (Lap gastri c sleeve), Cholecystectomy, , Hernia repair (Umbilical, hiatal), Hysterectomy. Pt reports no Fam Hx pert to chief complaint. Smoking status: Smoking status for patients 13 years old or old er: Never Smoker Physical Exam Vital Signs Review of Vital Signs Reviewed Focused PE General/Const General/Const Awake, Alert, Cooperative, Not to xic appearing Ears/Nose/Throat Ears/Nose/Throat Airway patent Resp/Chest Respiratory/Chest No respiratory distress Cardiovascular Cardiovascular Heart rate NL, Regular rhythm, C ap refill not delayed, Peripheral circulation NL Abdomen/GI Abdomen/GI Soft, No distention MS Back Back Full range of motion Skin Skin Warm, Dry, Intact Neurologic Neurologic Oriented X3, Speech NL, No motor def icits, No sensory deficits Interpretation Diagnostics Lab Results Interpretation Results Laboratory Tests 06/07/21 1227: [Embedded Image Not Available] Laboratory Tests: 06/077 Chemistry Sodium (136 - 145 mmol/L) 142 Potassium (3.5 - 5.1 mmol/L) 3.4 L Chloride (98 - 107 mmol/L) 104 Carbon Dioxide (20 - 31 mmol/L) 27 BUN (9 - 23 mg/dL) 10 Creatinine (0.55 - 1.02 mg/dL) 0.60 Glomerular Filtr Rate (>60 mL/min) >=60 max est imate Glucose (74 - 106 mg/dL) 69 L Calcium (8.7 - 10.4 mg/dL) 8.9 Total Bilirubin (0.3 - 1.2 mg/dL) 0.8 Direct Bilirubin (<0.3 mg/dL) 0.3 AST (<34 U/L) 39 H ALT (10 - 49 U/L) 17 Total Alk Phosphatase (46 - 116 U/L) 65 Total Protein (5.7 - 8.2 g/dL) 6.8 Albumin (3.2 - 4.8 g/dL) 4.3 Lipase (12 - 53 U/L) 29 Hematology WBC (4.8 - 10.8 x10 3/uL) 7.0 RBC (4.20 - 5.40 x10 6/uL) 4.88 Hgb (12.0 - 16.0 g/dL) 14.1 Hct (37.0 - 47.0 %) 44.7 MCV (81.0 - 99.0 fL) 91.6 MCH (27 - 31 pg) 28.9 MCHC (33 - 36.5 G/DL) 31.5 L RDW (12.9 - 16.9 %) 14.9 Plt Count (150 - 440 x10 3/uL) 131 L MPV (8.9 - 12.4 fL) 13.6 H Neut % (Auto) (42.2 - 75.2 %) 74.6 Lymph % (Auto) (20.5 - 51.1 %) 18.5 L [place] % (Auto) (1.7 - 9.3 %) 5.8 Eos % (Auto) (0.0 - 7.0 %) 0.7 Baso % (Auto) (0 - 2.5 %) 0.1 Neut # (Auto) (1.80 - 7.70 x10 3/uL) 5.25 Lymph # (Auto) (1.00 - 4.80 x10 3/uL) 1.30 [place] # (Auto) (0.00 - 0.80 x10 3/uL) 0.41 Eos # (Auto) (0.00 - 0.45 x10 3/uL) 0.05 Baso # (Auto) (0.0 - 0.20 x10 3/uL) 0.01 Urines Urine Color (YELLOW DISCRIPT) DARK YELLOW Urine Appearance (CLEAR DISCRIPT) CLEAR Urine pH (5.0 - 9.0) 6.0 Ur Specific [place] (1.005 - 1.030) >=1.030 Urine Protein (NEGATIVE mg/dL) TRACE Urine Glucose (UA) (NEGATIVE mg/dL) 100 A Urine Ketones (NEGATIVE mg/dL) >=80 A Urine Blood (NEGATIVE) TRACE A Urine Nitrite (NEGATIVE) NEGATIVE Urine Bilirubin (NEGATIVE) MODERATE A Urine Urobilinogen (0.2 - 1.0 mg/dL) 2.0 H Ur Leukocyte Esterase (NEGATIVE) NEGATIVE Urine RBC (0 - 2 #RBC/HPF) NONE SEEN Urine WBC (0 - 2 #WBC/HPF) 0-2 Ur Squamous Epith Cells (NONE - TRACE /LPF) 2+ A Urine Bacteria (NONE - TRACE /HPF) OCCASIONAL A Urine Mucus (NONE SEEN /LPF) 2+ A Urine HCG, Qual (NEGATIVE) NEGATIVE Recent Impressions: CAT SCAN - CT ABD PELVIS W/CONT 06/07 1324 Report Impression - Status: SIGNED Entered: 06/07/2021 1400 IMPRESSION: 1. Normal appendix. No evidence of acute intra-a bdominal abnormality. 2. Previous gastric sleeve. Enteric contrast wit hin the lower esophagus suggests esophageal dysmotility, gastr oesophageal reflux, or a combination of these. No leak is identified. 3. Additional findings include prior cholecystec ramila and colonic diverticulosis, without diverticulitis. One or more of the following dose reduction tech niques were used: Automated exposure control, adjustment of the mA and/or kV according to patient size, and/or utilization of iterative reconstruction technique. DLP: 2262 mGy-cm CTDI: 36 mGy Impression By: ChemoBCPiper - Fernando Hauser M.D. Lab Imaging Statement Laboratory radiographic studies reviewed and con sidered in the medical decision-making. Re-Evaluation MDM Free Text MDM Notes Free Text MDM Notes Recent intractable n/v s/p g astric sleeve and hiatal hernia repair. UA with > 80 ketones. Started on IVFs. Wi ll place on D5 1/2 NS with KCl (potassium 3.4). WBC wnl. CT scan with findings suggestive of gastroe sophageal stricture. Case d/w Dr. Abdullahi, recs for admission for further evaluation tomorrow. Case d/w Dr. Colby, accepted patient for admission. Pat ient also given zofran and morphine for symptoms. ED Course Medication(s) Ordered Medication(s) Ordered: Central Nervous System Agents Sig/Iliana Start time Last Medication Dose Route Stop Time Status Admin Morphine Sulfate 4 MG X1ED STA 06/07 1426 DC IV 06/07 1427 Morphine Sulfate 4 MG X1ED STA 06/07 1152 DC IV 06/07 1153 1316 Diagnostic Agents Sig/Iliana Start time Last Medication Dose Route Stop Time Status Admin Iopamidol 0 .STK-MED ONE 06/07 1315 DC 06/07 IV 1325 Diatrizoate Meglum/ 30 ML X1ED STA 06/07 1152 D C 06/07 Diatrizoate Sod PO 06/07 1153 1310 Electrolytic, Caloric, And Jose R Sig/Iliana Start time Last Medication Dose Route Stop Time Status Admin Potassium Chloride/ 1,000 ML X1ED STA 06/07 142 6 CKD Dextrose/Sod Cl IV 06/07 2225 Sodium Chloride 1,000 ML X1ED STA 06/07 1152 DC 06/07 IV 06/07 1251 1311 Gastrointestinal Drugs Sig/Iliana Start time Last Medication Dose Route Stop Time Status Admin Ondansetron HCl 4 MG X1ED STA 06/07 1152 DC IV 06/07 1153 1311 Consultation Consultation Referral/Consult Name Giuliano Abdullahi MD Respiratory Therapy Technician Called Bariatric Surgery Free Text Consult Notes Spoke with on phone at 14:15, recommends admissi on to Dr. Colby for further eval/management at this time. Patient Discharge Departure Vital Signs/Condition Vital Signs All vital signs available at the time of this en try have been reviewed. Clinical Impression Clinical Impression Primary Impression: Intractable nausea and vomit ing Secondary Impressions: Dehydration, Hypo kalemia, S/P gastric sleeve procedure, SUSPECTED GASTROESOPHAGEAL STRICTURE Disposition Decision Admit Admit Physician Name Bryant Colby JORDON GARCIA Request Time 142 Request Date 06/07/21 )( Admission Accepts Yes )( Accepted Time 142 )( Accepted Date 06/07/21 Discharge/Care Plan Counseled Regarding Diagnosi s, Lab results, Imaging studies, Need for admission Rx Drug Database Reviewed Yes, Single rx for tyl enol with codeine in 04/2021. Low abuse risk potential. at 1512 RPT #:[id number] END OF REPORT 2021-05-10 10:19:00-00:00 [id number] [facility] [address] [place] [address] PATIENT NAME: KELLE CALDERÓN ADMIT DATE: 07/04/20 ACCOUNT NO: [id number] ROOM NO: P.0576 AGE: 45 REPORT TYPE: OPERATIVE REPORT SEX: F ADMITTING PHYSICIAN:Giuliano Abdullahi MD ATTENDING PHYSICIAN:Giuliano Abdullahi MD OPERATION DATE: 05/04/2021 DATE OF PROCEDURE: 05/04/2021 PREOPERATIVE DIAGNOSIS: Pain, status post laparo scopic gastric sleeve. POSTOPERATIVE DIAGNOSIS: Pain, status post lapar oscopic gastric sleeve. PROCEDURE PERFORMED: Placement of infusion quentin ter into the abdominal wall x 2. SURGEON: Giuliano Abdullahi M.D. ANESTHESIA: General endotracheal. ESTIMATED BLOOD LOSS: None. INDICATIONS FOR PROCEDURE: The patient is a 45-y ear-old woman who underwent a laparoscopic sleeve gastrectomy that requires mu ltiple port placements in the mid abdomen. It causes significant amount of pos toperative pain. The patient is also morbidly obese, causing an incre ased risk for deep vein thrombosis and pneumonia related to postoperative pain. PROCEDURE IN DETAIL: After laparoscopic sleeve gastrectomy was completed, I passed two dilators and gonsales ths through a left subcostal skin incision into the abdominal wall and passed th e sheaths down to the umbilical area. I removed the dilators, leaving the sheath s in place. I passed the catheters into the sheaths and removed the sheaths, leaving the cat heters in place in the abdominal wall. Dictated By: Giuliano Abdullahi MD WT: OP:P.DUSTIN/CEDRIC/NTS Conf#: [id number]/DID#: [id number] Authenticated by Giuliano Abdullahi MD On 01:58:11 PM at 0158 PATIENT NAME: KELLE CALDERÓN ACCOUNT #: BP [id number] 2021-05-10 10:19:00-00:00 [id number] [facility] [address] [place] [address] PATIENT NAME: KELLE CALDERÓN ADMIT DATE: 07/04/20 ACCOUNT NO: [id number] ROOM NO: [facility] AGE: 45 REPORT TYPE: OPERATIVE REPORT SEX: F ADMITTING PHYSICIAN:Giuliano Abdullahi MD ATTENDING PHYSICIAN:Giuliano Abdullahi MD OPERATION DATE: 05/04/2021 PREOPERATIVE DIAGNOSES: 1. Diabetes. 2. Hypertension. 3. Sleep apnea. 4. Hiatal hernia. 5. Morbid obesity. POSTOPERATIVE DIAGNOSES: 1. Diabetes. 2. Hypertension. 3. Sleep apnea. 4. Hiatal hernia. 5. Morbid obesity. 6. Hepatomegaly. PROCEDURE PERFORMED: 1. Laparoscopic sleeve gastrectomy. 2. Laparoscopic hiatal hernia repair. 3. Laparoscopic wedge liver biopsy. 4. Esophagogastroduodenoscopy SURGEON: Giuliano Abdullahi MD MIRROR FINISHING MACHINE OPERATOR: Migdalia Salvador, licensed parts room assistant. ESTIMATED BLOOD LOSS: Minimal. ANESTHESIA: General endotracheal with local. INDICATION FOR PROCEDURE: The patient is a 45-year-old woman with a history of diabetes, hypertension, sleep apnea, and a hiata l hernia seen on preoperative endoscopy, all related to he r morbid obesity. The patient has a body mass index of 66. She was also found to have hepatomegaly o n inspection of the abdomen during the operation. PROCEDURE IN DETAIL: The patient was given preop erative IV antibiotics and subcutaneous heparin and was brought int o the operative room and placed on the operating table in the supine position. Sequenti al compression devices were applied to both legs and activated. The patient was placed under general endotracheal anesthesia and the abdomen was ster ilely prepped and draped. We injected the skin and subcut aneous tissues over the left lateral subcostal area PATIENT NAME: KELLE CALDERÓN ACCOUNT #: BP [id number] with Marcaine. We made a 5 mm incision with the scalpel. We passed 5 mm Optiview trocar through the abdominal wall using a laparoscope to visualize each layer of the abdominal wall as port was inserted. We insufflated the abdomen to 15 mmHg of pressure with CO2. We placed a 15 mm port and a 5 mm port at the umbilicus and a 5 mm port in the right subcostal area under direct laparoscopic vision using Marcaine for local anesthesia. We u sed the LigaSure device to dissect the greater omentum off of the g reater curvature of the stomach from 3 cm proximal to the pylorus u p to the angle of His. We dissected the gastric fat pad off of the proximal stomach as well. We used a LigaSure device to divide the gastrohepatic ligament and to dissect the di stal esophagus and proximal stomach off the right and left crura pos terior to the esophagus. We inserted a 40-Setswana bougie into the mouth, passed it down the esophagus and into the stomach, repositioned the vernon ugie along the lesser curvature with the tip of the bougie until the pylorus. We placed a laparoscop ic Covidien stapler with a 60 mm black load and Sri-Strip staple line reinfor cement on the stomach 3 cm proximal to the pylorus and direct the stapler t owards the angle of His, bringing the stapler adjacent to the bougie. Aft er firing the first stapler load, we continued firing the laparoscopic Covid ien stapler with 60 mm black loads and Sri-Strip staple line reinforcement a long the bougie until the stomach was completely divided up the angle of H is, leaving a 1 cm segment of stomach between the esophagus and the staple ed e. We used the EndoStitch device and a 2-[address] to place a szoxza-cm-sffmx suture, bringing the right and left crura together posterior to the e sophagus to repair the hiatal hernia. We closed the hiatus tight enough that t he esophagus was touching the muscle of the diaphragm. We removed the bougie and inserted an upper endoscope into the mouth, passed it down the esophagus and into the gastric sleeve. We inflated the gastric sleeve with air and past saline staple line and we saw no leakage of air from the staple line. The inside of the sleeve was hemostatic and properly constructed. We removed the upper e ndoscope. We irrigated and suctioned the abdomen and checked for bl eeding. It was found to be hemostatic. We sutured the omentum to the lateral aspect of the distal sleeve with a 2-0 Vicryl suture to keep sleeve straight. We removed the stomach specimen from the abdomen through the 15 mm po rt site. We closed the fascial opening of the 15 mm port site with a suture passer and #1 Vicryl sut ure under direct laparoscopic vision. We deflate the abdomen and removed the p orts. We closed the skin incisions with 4-0 Monocryl suture in a subcutic ular fashion. We applied Dermabond to the wounds. The patient was awakene d from general anesthesia, extubated and taken to the P ACU in stable condition. Prior to completion of the sleeve gastrectomy, we removed a small piece of the liver edge from the left lateral segment of the liver using the L igaSure device. The liver specimen was sent to pathology. Dictated By: Giuliano Abdullahi MD WT: OP:PSLOANE/CEDRIC/MARY KAY Conf#: [id number]/DID#: [id number] Authenticated and Edited by Giuliano bowie MD On 06/08/21 1:58:53 PM PATIENT NAME: KELLE CALDERÓN ACCOUNT #: BP [id number] at 0201 PATIENT NAME: HUNTERKELLE ACCOUNT #: BP [id number] 2021-05-06 09:02:00-00:00 [id number] [facility] [address] [place] [address] [place] [address] PATIENT NAME: CALDERÓNKELLE Kinney ADMIT DATE: 07/04/20 ACCOUNT NO: [id number] ROOM NO: P.0576 AGE: 45 REPORT TYPE: DISCHARGE SUMMARY SEX: F ADMITTING PHYSICIAN:Giuliano Abdullahi MD ATTENDING PHYSICIAN:Giuliano Abdullahi MD ADMISSION DATE: 05/04/2021 DISCHARGE DATE: HISTORY AND HOSPITAL COURSE: The patient is a 45-year-old woman who underwent a laparoscopic sleeve gastrectomy and hiatal herni a repair. The patient had an uneventful postoperative cou rse and was discharged home on postoperative day #2 on a bariatric liquid diet that she will maintain for 2 weeks. She will follow up with us in the office in 2 weeks. She will take Tylenol with Codeine elixir for pain, Zofran for nausea and Lovenox for DVT prophylaxis for 2 weeks. Please see her home medication reconciliation form for other medications. Dictated By: Giuliano Abdullahi MD WT: DS:TONYA/CEDRIC/MARY KAY Conf#: [id number]/DID#: [id number] Authenticated by Giuliano Abdullahi MD On 01:58:09 PM at 0158 PATIENT NAME: KELLE CALDERÓN ACCOUNT #: BP [id number] 2021-05-04 16:02:00-00:00 [id number] [address] PATIENT NAME: KELLE CALDERÓN ADMIT DATE: 07/04/20 ACCOUNT NO: [id number] ROOM NO: P.0576 AGE: 45 REPORT TYPE: CONSULTATION SEX: F ADMITTING PHYSICIAN:Giuliano Abdullahi MD ATTENDING PHYSICIAN:Giuliano Abdullahi MD CONSULTATION DATE: 05/04/2021 CONSULTING PHYSICIAN: Alisa Beaver MD REFERRING PHYSICIAN: Giuliano Abdullahi MD REASON FOR CONSULTATION: Postoperative medical m anagement. HISTORY OF PRESENT ILLNESS: This is a 45-year-ol d female with morbid obesity (63 inches tall, 373 pounds, BMI 66.1 ki logram per meter square), who underwent laparoscopic sleeve gastrectomy, hiata l hernia and liver wedge biopsy today. The patient tolerated the surgery without complication. PAST MEDICAL HISTORY: 1. Morbid obesity. 2. Diabetes type 2. 3. Obstructive sleep apnea. 4. Essential hypertension. 5. Difficulty walking. 6. Hypercholesterolemia. 7. Moderate severe reflux esophagitis, large hia vicente hernia, gastritis on EGD 05/02/2020. PAST SURGICAL HISTORY: 1. Abdominal hysterectomy 2. . 3. Tubal ligation. 4. Three knee surgeries. 5. Umbilical hernia repair. 6. Laparoscopic cholecystectomy. ALLERGIES: PENICILLIN, PLAVIX, AND WARFARIN. CURRENT MEDICATIONS: Aspirin, atorvastatin, carb amazepine, ergocalciferol, gabapentin, Lantus, lisinopril, magnesium oxide, metformin, pantoprazole, Janumet. FAMILY HISTORY: Noncontributory. SOCIAL HISTORY: She denied tobacco, alcohol, or illicit drug use. REVIEW OF SYSTEMS: No fever, no chills, no cough , no cold, no shortness of breath. No chest pain. No abdominal pain, no ranulfo rrhea and no constipation. No PATIENT NAME: KELLE CALDERÓN ACCOUNT #: BP [id number] dysuria. No urinary incontinence or urinary rete ntion. No skin rash. No bleeding tendencies. No anxiety or depression. N o headache or dizziness. No hearing or visual disturbances. No muscle or matt nt pain. No numbness or tingling sensation. No polyuria or polydipsia. PHYSICAL EXAMINATION: GENERAL APPEARANCE: The patient was seen in the recovery room. She was still sedated, she was not in distress. VITAL SIGNS: Temperature 37, blood press ure 120/64, heart rate 74, respiratory rate 16, SpO2 99% on facemask. HEAD AND NECK: [place] conjunctivae, anicteric scle agusto. Negative JVD. Negative lymphadenopathy. No goiter. No oral lesion. CHEST: Clear. HEART: Regular rate and rhythm. ABDOMEN: Soft, nontender. Positive bowel sounds. EXTREMITIES: No edema, no cyanosis, no clubbing and no tenderness. NEUROLOGIC: No gross motor or sensory deficits. LABORATORY DATA: Preop lab done on 04/30/2021; b asic metabolic panel within normal limit except for glucose of 70. COVID jose t negative. WBC 7.9, hemoglobin 13.3, and platelet count 225. ASSESSMENT AND PLAN: 1. Morbid obesity, gastroesophageal reflux disea se with esophagitis, large hiatal hernia, s/p laproscopic sle cate gastrectomy, hiatal hernia repair, and liver wedge biopsy. Stable postop. Continue pain control. Encourage incentive spirometry and ambulation. 2. Diabetes type 2. We will hold Janumet/ metfor min and glargine/Lantus. Patient will be on Accu-Chek q. 6 hours. Start N ovoLog, low-dose sliding scale q. 6 hours. 3. Essential hypertension. Hold lisinopril. We w ill start the patient on enalapril IV p.r.n. Continue to monitor blood pr essure and heart rate. 4. Obstructive sleep apnea. The patient may use her CPAP machine if it is available. Continue to monitor oxygen saturation during sleep. 5. Resume carbamazepine when taking p.o. 6. Hypercholesterolemia, resume atorvastatin whe n taking p.o. 7. Hiatal hernia, hold pantoprazole. Symptoms sh ould improve with weight loss and surgery. 8. The patient will be start ed on enoxaparin in a.m. for deep venous thrombosis prophylaxis. Dictated By: Alisa Beaver MD WT: CON:PSLOANE/JERZY/MARY KAY Conf#: [id number]/DID#: [id number] PATIENT NAME: KELLE CALDERÓN ACCOUNT #: B [id number] Authenticated and Edited by Alisa Beaver MD On 05/05/21 4:28:18 PM Electronically Signed by Alisa Baever MD on 04/14 08/31 at 0429 PATIENT NAME: KELLE CALDERÓN ACCOUNT #: BP [id number] 2021-04-30 17:24:00-00:00 [id number] [address] PATIENT NAME: KELLE CALDERÓN ADMIT DATE: ACCOUNT NO: [id number] ROOM NO: AGE: 45 REPORT TYPE: eELECTROCARDIOGRAM SEX: F ADMITTING PHYSICIAN: Giuliano Abdullahi MD ATTENDING PHYSICIAN: Giuliano Abdullahi MD Order: [id number] Test Reason : SDS Test Date/Time Stamp: TueApr 30 2021 17:24:04 Blood Pressure : / mmHG Vent. Rate : 067 BPM Atrial Rate : 067 BPM P-R Int : 130 ms QRS Dur : 098 ms QT Int : 418 ms P-R-T Axes : 023 028 027 degree s QTc Int : 441 ms Normal sinus rhythm Normal ECG No previous ECGs available Confirmed by CHANDLER GREENBERG MD ([id number]) on 04/14 10:49:25 AM Referred By: Giuliano Abdullahi Confirmed by:TRISHA GREENBERG MD at 1049 PATIENT NAME: KELLE CALDERÓN ACCOUNT #: BP [id number] 2020-11-04 11:48:00-00:00 [facility] Hospitalist Progress Note REPORT#:[id number] REPORT STATUS: Signed DATE:11/04/20 TIME: 1148 PATIENT: KELLE CALDERÓN UNIT #: [id number] ROOM/BED: Banner-W : 75 AGE: 45 SEX: F ATTEND: Brody Dacosta MD ADM AUTHOR: Rosalia Calle MD * ALL edits or amendments must be made on the [employer]/computer document * Subjective Patient reports: No: complaints. Review of Systems All systems rev neg: except as marked Objective General VS/I O: Vital Signs: Date Time Temp Pulse Resp B/P B/P Pulse O2 O2 F low FiO2 Mean Ox Delivery Rate 11/04 0806 97.7 72 20 101/59 72.8 94 Room air 11/04 0418 97.5 80 20 121/74 89.5 95 Room air 11/04 0039 98.4 82 20 134/74 93.8 99 Room air 11/03 203 98.8 78 20 129/85 99.3 97 Room air 11/03 1513 98.8 78 20 112/72 85.0 98 Room air 24 hour I O ending at 0700: 11/04 0700 11/03 1900 Intake Total 900 Output Total Balance 900 Intake, Oral 900 Number 1 Bowel Movements Number Voids 1 PATIENT WEIGHT: Weight (lb): 370 Weight (oz): 0 Weight (kg): 167.012616 Physical Exam General appearance: alert, awake Head/Eyes: atraumatic, EOMI, PERRLA Cardiovascular: normal heart sounds, regular rat e rhythm Respiratory: clear to auscultation, no distress Abdomen: non-tender, normal bowel sounds, soft Extremities: moves all, no edema Neuro/TOUR SALES REPRESENTATIVE: abnormal speech, focal weakness, aler t, oriented X 3 Skin: dry, intact, no rash Diagnosis, Assessment Plan Free Text DxA P Notes Free text DxA P notes: Acute Ischemic CVA s/P TPA - Keep BP < 180/105 after bolus administ ered with Cardene titrated to SBP 160- 180 and DBP 90-105 - Hydrate with NS as tolerated by cardiopulmonar y status - Avoid relative hypotension and dehydration - No antiplatelet or anticoagulant x [address] tPA bolus -Patient unfortunately too large for MRI machine . Restart antiplatelets per neurology. - Bedrest in ICU x 24 hours post tPA bolus - MRI brain, patient unable to fit in ER MRI machine due to body habitus. Will ask case management about open air MRI on Tuesday versus outpatient MRI - Telemetry monitoring for atrial fibrillation - SCD -Mechanically soft diet per speech - Check lipids, hemoglobin A1C - Strict glucose control - CT head post 24 hours unremarkable - Echocardiogram with bubble study - Ultimate antithrombotic th erapy (24 hrs post tPA bolus) to be determined based on etiology and extent of the stroke - PT/OT/ST consults -Neuro consult Started on acyclovir. Recommend opening or MRI when available. Discussed with spouse they expect to be able to set up ope n air MRI with the outpatient neurologist in [place]. -Lipid profile, TSH, B12, folic acid, ESR Aic -MRA the head and neck Hypertension -Permissive hypertension as mentioned above DM2 -A1c -Lipitor Morbid obesity -Advised on weight loss - Artillery Maintenance Supervisor consult QUALITY: DVT AND GI PROPHYLAXIS order ed; PPI and SCD. CI for Pharmacological prophylaxis for now HOME MEDS RECONCILED and ordered. Advance Care Planning and Code Status Discussed: Full Code Disposition: No interval change in assessment and plan patien t awaiting awaiting placement Electronically Signed by Rosalia Calle MD on 10/12 10/31 at 1148 RPT #:[id number] END OF REPORT 2020-11-03 11:12:00-00:00 [facility]) Hospitalist Progress Note REPORT#:[id number] REPORT STATUS: Signed DATE:11/03/20 TIME: 1112 PATIENT: KELLE CALDERÓN UNIT #: [id number] ROOM/BED: B.160-W : 75 AGE: 45 SEX: F ATTEND: Brody Dacosta MD ADM AUTHOR: Tyesha Dacosta * ALL edits or amendments must be made on the [employer]/computer document * Subjective Free Text Subj Notes Free Text Subj Notes: Note no change Objective General VS/I O: Vital Signs: Date Time Temp Pulse Resp B/P B/P Pulse O2 O2 F low FiO2 Mean Ox Delivery Rate 11/03 0950 97 Room air 11/03 0753 97.7 67 18 104/68 79.8 97 Room air 11/03 0421 97.5 72 20 123/83 96.5 97 Room air 11/03 0412 97 Room air 11/02 2257 97.7 77 20 122/65 0.0 99 Room air 11/02 1938 99.0 82 20 122/81 94.6 100 Room air 11/02 1612 98.2 82 20 133/81 98.6 99 Room air 11/02 1224 98.2 76 18 145/79 101.1 98 Room air 11/02 1140 97 Room air 24 hour I O ending at 0700: 11/03 0700 11/02 1900 Intake Total Output Total 600 Balance -600 Output, Urine 600 PATIENT WEIGHT: Weight (lb): 370 Weight (oz): 0 Weight (kg): 167.922894 Medications: Active Meds + DC'd Last 24 Hrs Acyclovir 400 MG 5XDAY PO Sodium Chloride 1 DROP BEDTIME RIGHT EYE Pantoprazole 40 MG BID PO Acetazolamide 1,000 MG BID PO (CKD) Carbamazepine 400 MG BID PO Simvastatin 10 MG BEDTIME PO Dextrose/Water 25 ML ASDIR PRN IV (CKD) Glucagon 1 MG ASDIR PRN IM Glucose Polymer 15 GM ASDIR PRN PO Insulin Human Lispro See Admin Criteria ASDIR PRN SUBQ Acetaminophen 650 MG Q4H PRN PRN PO Bisacodyl 10 MG DAILY PRN RECTAL Labetalol HCl 10 MG ASDIR PRN IV Ondansetron HCl 4 MG Q4H PRN PRN IV Physical Exam Head/Eyes: atraumatic, EOMI, PERRLA Cardiovascular: normal heart sounds, regular rat e rhythm Respiratory: aerating well, clear to auscultatio n Abdomen: non-tender, normal bowel sounds, soft Extremities: moves all, no edema Neuro/TOUR SALES REPRESENTATIVE: abnormal speech, focal weakness, aler t, oriented X 3 Skin: dry, intact, no rash Results Findings/Data: Laboratory Tests 11/03 11/02 11/02 11/02 0542 1946 1613 1131 Chemistry POC Glucose (70 - 119 MG/DL) 124 H 151 H 118 12 9 H Results: labs reviewed, vital signs stable Diagnosis, Assessment Plan Free Text DxA P Notes Free text DxA P notes: Acute Ischemic CVA s/P TPA - Keep BP < 180/105 after bolus administ ered with Cardene titrated to SBP 160- 180 and DBP 90-105 - Hydrate with NS as tolerated by cardiopulmonar y status - Avoid relative hypotension and dehydration - No antiplatelet or anticoagulant x [address] tPA bolus -Patient unfortunately too large for MRI machine . Restart antiplatelets per neurology. - Bedrest in ICU x 24 hours post tPA bolus - MRI brain, patient unable to fit in ER MRI machine due to body habitus. Will ask case management about open air MRI on Tuesday versus outpatient MRI - Telemetry monitoring for atrial fibrillation - SCD -Mechanically soft diet per speech - Check lipids, hemoglobin A1C - Strict glucose control - CT head post 24 hours unremarkable - Echocardiogram with bubble study - Ultimate antithrombotic th erapy (24 hrs post tPA bolus) to be determined based on etiology and extent of the stroke - PT/OT/ST consults -Neuro consult Started on acyclovir. Recommend opening or MRI when available. Discussed with spouse they expect to be able to set up ope n air MRI with the outpatient neurologist in [place]. -Lipid profile, TSH, B12, folic acid, ESR Aic -MRA the head and neck Hypertension -Permissive hypertension as mentioned above DM2 -A1c -Lipitor Morbid obesity -Advised on weight loss - Artillery Maintenance Supervisor consult QUALITY: DVT AND GI PROPHYLAXIS order ed; PPI and SCD. CI for Pharmacological prophylaxis for now HOME MEDS RECONCILED and ordered. Advance Care Planning and Code Status Discussed: Full Code Disposition: No interval change in assessment and plan patien t awaiting awaiting placement at 1113 RPT #:[id number] END OF REPORT 2020-11-02 10:47:00-00:00 [facility] ([facility]) Hospitalist Progress Note REPORT#:[id number] REPORT STATUS: Signed DATE:11/02/20 TIME: 104 PATIENT: KELLE CALDERÓN UNIT #: [id number] ROOM/BED: [place]-W : 75 AGE: 45 SEX: F ATTEND: Brody Dacosta MD ADM AUTHOR: Tyesha Dacosta * ALL edits or amendments must be made on the [employer]/computer document * Subjective Free Text Subj Notes Free Text Subj Notes: No acute complaints no change in mental status Objective General VS/I O: Vital Signs: Date Time Temp Pulse Resp B/P B/P Pulse O2 O2 F low FiO2 Mean Ox Delivery Rate 11/02 0734 97.9 60 16 117/73 87.8 97 Room air 11/02 0528 97.9 70 20 128/84 98.2 97 Room air 11/01 2255 95 Room air 11/01 225 98.1 81 20 148/94 112.1 95 Room air 11/01 1943 98.1 79 20 122/70 87.1 97 Room air 11/01 1544 97.9 70 18 135/86 102.7 99 Room air 11/01 1128 98.1 65 16 125/75 91.9 99 Room air 24 hour I O ending at 0700: 11/02 0700 11/01 1900 Intake Total 300 Output Total Balance 300 Intake, Oral 300 Number 1 Bowel Movements PATIENT WEIGHT: Weight (lb): 370 Weight (oz): 0 Weight (kg): 167.650650 Medications: Active Meds + DC'd Last 24 Hrs Acyclovir 400 MG 5XDAY PO Sodium Chloride 1 DROP BEDTIME RIGHT EYE Acyclovir 400 MG 5XDAY PO (DC) Pantoprazole 40 MG BID PO Acetazolamide 1,000 MG BID PO (CKD) Carbamazepine 400 MG BID PO Simvastatin 10 MG BEDTIME PO Dextrose/Water 25 ML ASDIR PRN IV (CKD) Glucagon 1 MG ASDIR PRN IM Glucose Polymer 15 GM ASDIR PRN PO Insulin Human Lispro See Admin Criteria ASDIR PRN SUBQ Acetaminophen 650 MG Q4H PRN PRN PO Bisacodyl 10 MG DAILY PRN RECTAL Labetalol HCl 10 MG ASDIR PRN IV Ondansetron HCl 4 MG Q4H PRN PRN IV Physical Exam Head/Eyes: atraumatic, EOMI, PERRLA Cardiovascular: normal heart sounds, regular rat e rhythm Respiratory: aerating well, clear to auscultatio n Abdomen: non-tender, normal bowel sounds, soft Extremities: moves all, no edema Neuro/T[employer] SALES REPRESENTATIVE: abnormal speech, focal weakness, aler t, oriented X 3 Skin: dry, intact, no rash Results Findings/Data: Laboratory Tests 11/02 11/01 11/01 11/01 0608 1945 1543 1126 Chemistry POC Glucose (70 - 119 MG/DL) 98 130 H 93 133 H Results: labs reviewed, vital signs stable Diagnosis, Assessment Plan Free Text DxA P Notes Free text DxA P notes: Acute Ischemic CVA s/P TPA - Keep BP < 180/105 after bolus administ ered with Cardene titrated to SBP 160- 180 and DBP 90-105 - Hydrate with NS as tolerated by cardiopulmonar y status - Avoid relative hypotension and dehydration - No antiplatelet or anticoagulant x [address] tPA bolus -Patient unfortunately too large for MRI machine . Restart antiplatelets per neurology. - Bedrest in ICU x 24 hours post tPA bolus - MRI brain, patient unable to fit in ER MRI machine due to body habitus. Will ask case management about open air MRI on Tuesday versus outpatient MRI - Telemetry monitoring for atrial fibrillation - SCD - NPO till swallow evaluation passed - Check lipids, hemoglobin A1C - Strict glucose control - CT head post 24 hours unremarkable - Echocardiogram with bubble study - Ultimate antithrombotic th erapy (24 hrs post tPA bolus) to be determined based on etiology and extent of the stroke - PT/OT/ST consults -Neuro consult Started on acyclovir. Recommend opening or MRI when available. Discussed with spouse they expect to be able to set up ope n air MRI with the outpatient neurologist in [place]. -Lipid profile, TSH, B12, folic acid, ESR Aic -MRA the head and neck Hypertension -Permissive hypertension as mentioned above DM2 -A1c -Lipitor Morbid obesity -Advised on weight loss - Artillery Maintenance Supervisor consult QUALITY: DVT AND GI PROPHYLAXIS order ed; PPI and SCD. CI for Pharmacological prophylaxis for now HOME MEDS RECONCILED and ordered. Advance Care Planning and Code Status Discussed: Full Code Disposition: Pending rehab placement by case management [facility] insurance authorization at 1048 RPT #:[id number] END OF REPORT 2020-11-01 10:54:00-00:00 [facility] Hospitalist Progress Note REPORT#:[id number] REPORT STATUS: Signed DATE:11/01/20 TIME: 1054 PATIENT: KELLE CALDERÓN UNIT #: [id number] ROOM/BED: B160-W : 75 AGE: 45 SEX: F ATTEND: Brody Dacosta MD ADM AUTHOR: Tyesha Dacosta * ALL edits or amendments must be made on the [employer]computer document * Subjective Free Text Subj Notes Free Text Subj Notes: No acute complaints or change in mental status s table facial droop Objective General VS/I O: Vital Signs: Date Time Temp Pulse Resp B/P B/P Pulse O2 O2 F low FiO2 Mean Ox Delivery Rate 11/01 0759 97 Room air 0 11/01 0758 97.9 59 16 124/64 84.1 97 Room air 11/01 0419 66 98 11/01 032 97.9 64 20 163/82 109.1 97 CPAP 10/31 2345 98.1 70 20 122/72 88.4 96 CPAP 10/316 73 99 10/31 99 Room air 10/31 2020 97.7 71 16 121/80 93.6 98 10/31 1609 98.1 64 18 127/74 91.4 98 Room air 10/31 1119 97.7 74 19 128/86 100.0 97 Room air 24 hour I O ending at 0700: 11/01 0700 10/31 1900 Intake Total 400 150 Output Total 600 500 Balance -200 -350 Intake, Oral 400 150 Output, Urine 600 500 PATIENT WEIGHT: Weight (lb): 370 Weight (oz): 0 Weight (kg): 167.625746 Medications: Active Meds + DC'd Last 24 Hrs Sodium Chloride 1 DROP BEDTIME RIGHT EYE Acyclovir 400 MG 5XDAY PO Pantoprazole 40 MG BID PO Acetazolamide 1,000 MG BID PO (CKD) Carbamazepine 400 MG BID PO Simvastatin 10 MG BEDTIME PO Mupirocin 1 APPLIC BID NASAL (DC) Dextrose/Water 25 ML ASDIR PRN IV (CKD) Glucagon 1 MG ASDIR PRN IM Glucose Polymer 15 GM ASDIR PRN PO Insulin Human Lispro See Admin Criteria ASDIR PRN SUBQ Acetaminophen 650 MG Q4H PRN PRN PO Bisacodyl 10 MG DAILY PRN RECTAL Labetalol HCl 10 MG ASDIR PRN IV Ondansetron HCl 4 MG Q4H PRN PRN IV Physical Exam Head/Eyes: atraumatic, EOMI, PERRLA Cardiovascular: normal heart sounds, regular rat e rhythm Respiratory: aerating well, clear to auscultatio n Abdomen: non-tender, normal bowel sounds, soft Extremities: moves all, no edema Neuro/TOUR SALES REPRESENTATIVE: abnormal speech, focal weakness, aler t, oriented X 3 Skin: dry, intact, no rash Results Findings/Data: Laboratory Tests 11/0156 2018 1620 1122 Chemistry POC Glucose (70 - 119 MG/DL) 106 111 110 149 H Radiology data: Recent Impressions: CAT SCAN - CT HEAD/BRAIN W/O CONT 10/31 2254 Report Impression - Status: SIGNED Entered: 10/31/2020 231 IMPRESSION: 1. No CT evidence of acute intracranial abnormal ity. Impression By: [email or web address] - Alisa Alcocer MD Results: labs reviewed, vital signs stable Diagnosis, Assessment Plan Free Text DxA P Notes Free text DxA P notes: Acute Ischemic CVA s/P TPA - Keep BP < 180/105 after bolus administ ered with Cardene titrated to SBP 160- 180 and DBP 90-105 - Hydrate with NS as tolerated by cardiopulmonar y status - Avoid relative hypotension and dehydration - No antiplatelet or anticoagulant x [address] tPA bolus -Patient unfortunately too large for MRI machine . Restart antiplatelets per neurology. - Bedrest in ICU x 24 hours post tPA bolus - MRI brain - Telemetry monitoring for atrial fibrillation - SCD - NPO till swallow evaluation passed - Check lipids, hemoglobin A1C - Strict glucose control - CT head post 24 hours unremarkable - Echocardiogram with bubble study - Ultimate antithrombotic th erapy (24 hrs post tPA bolus) to be determined based on etiology and extent of the stroke - PT/OT/ST consults -Neuro consult Started on acyclovir. Recommend opening or MRI when available. Discussed with spouse they expect to be able to set up ope n air MRI with the outpatient neurologist in [place]. -Lipid profile, TSH, B12, folic acid, ESR Aic -MRA the head and neck Hypertension -Permissive hypertension as mentioned above DM2 -A1c -Lipitor Morbid obesity -Advised on weight loss - Artillery Maintenance Supervisor consult QUALITY: DVT AND GI PROPHYLAXIS order ed; PPI and SCD. CI for Pharmacological prophylaxis for now HOME MEDS RECONCILED and ordered. Advance Care Planning and Code Status Discussed: Full Code Disposition: Pending rehab placement by case management await ing insurance authorization Neurology final recs at 1059 RPT #:[id number] END OF REPORT 2020-11-01 01:38:00-00:00 [id number] [place] [address] PATIENT NAME: KELLE CALDERÓN ADMIT DATE: 1 ACCOUNT NO: [id number] ROOM NO: B.160 AGE: 45 REPORT TYPE: PROGRESS NOTE SEX: F ADMITTING PHYSICIAN:Rosalia Calle MD ATTENDING PHYSICIAN:Rosalia Calle MD DATE: 10/31/2020 INPATIENT NEUROLOGY PROGRESS NOTE SUBJECTIVE: This is a 45-yea r-old morbidly obese female with a history of prior strokes, who was transferred from [facility] for further evaluation of left-sided weakness, concern for p ossible stroke. 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 The patient also has a history of trigeminal neuralgia involving the right side of the face, placing her on carbamazepine 400 mg twice daily. The patient's onset was approximately 8:45 p.m. and the patient's glucose was elevated on admission at 01: 19 p.m. The patient is morbidly obese and unable to fit in a standard MRI scanner, but CT scan of [facility] head was negative for any acute intracranial pathology. The patient came i n hypertensive and required nicardipine drip. The tPA was given. The patient 's arrival at the Emergency Room was at 1:37 a.m. The pa fina had received prior to arrival tPA at 22:22 of 9 mg and then second infusion 81 mg at 22:23 hany or to arrival. On arrival, the patient's NI H stroke scale was 8 with points primarily given for the facial palsy, left arm motor drift, left leg motor drift, sensation in the arms and legs, and mild loss of fluency. After on the Cardene drip, the patient's blood p ressure stabilized to 132/69. Over the interim, the patien t underwent an echocardiogram on October 28 and this did show a normal ejection fraction of 55% to 60%. The patient had no complications post tPA. The p eugene was seen briefly by neurology on October 30, but was undergoing a bath but overall patient was reported to be stable by [facility] staff, no loss in fluency of her speech and she had no evidence of any bruising. Current vital signs; blood pressure is 122/72, p ulse ox 96%. Further history obtained fro m the patient, the Naranjo's palsy apparently involved the left side of the face which is where there is concern for current possible stroke symptoms. The patient experienced the Naranjo's palsy approximately several months ago in the setting of a very emotionally traumatic event. She has had ongoing residual from this. PATIENT NAME: KELLE CALDERÓN 3600 Currently, the patient is sh owing evidence of weakness on the right side of the face. There is incomplete closure of the right e ye. On rapid facial grimacing one can appreciate no sparing of the forehead on the left consistent with her history of Naranjo's palsy. However, on the right s serafin, she is showing the signs consistent with a Naranjo's pal sy affecting the right side of the face as a facial droop is on the left. Pertinent labs; platelet count normal. CBC: H an d H normal. Chemistry panel since admission shows elevated R DW. Glucose has been more normalized today. CTA of the head shows no evidence of any aneurys m, stenosis, occlusion or high-grade stenosis. CT angio of the neck is normal. No evidence of a ny dissection, high-grade stenosis. OBJECTIVE: PUPILS: Equally reactive to light and accommodat ion. CRANIAL NERVES: Tracks well. There is no nystagm us noted on vertical or horizontal gaze. There is facial weakness noted on the left side of the face without sparing of the forehead. There is incomp lete closure noted with the right eye. Facial weakness is prominent on the l eft. Palate elevates symmetrically. Shoulder shrug is asymmetric on t he left. Tongue is midline without fasciculations or deviation. MOTOR EXAMINATION: The patient has poor effort t hroughout the exam. There is definite 3/5 weakness proximally and dis tally in the left upper and left lower extremity. The patient made poor effort to try t o assess for pronator drift. Strength on the right upper extremity is -5/[address] Strength testing in the lower extremi ties, the patient is able to lift both feet off the bed at 30 degrees without drift. Coordination testing is inta ct to [id number] testing with eyes open and eyes closed. Sequential finger tapping is intact. Deep tendon reflexes are +1 over biceps, triceps, brachioradialis. Ankle jerks are trace bilaterally. Plantar responses are fle xor bilaterally. Sensory examination grossly intact to light touc h throughout and pinprick. ASSESSMENT: This is a 45-year-old morbidly obese female, who is in pending status for gastric lap band placement. She has a ____ recent Naranjo's palsy involving the left side of the face that has erik e residual deficit and today presents with evidence of right-sided facial wea kness as well. The patient received tPA at an outside hospital. No complications had been determined. The patient was hypertensive on admission and requir ed Cardene drip. Since admission, the patient is st abilizing clinically. We have been unable to obtain an MRI of the brain due to her body size. RECOMMENDATIONS: 1. May give aspirin 81 mg enteric-coated antipla telet therapy. 2. Continue with statin therapy. 3. Continue carbamazepine 400 mg twice daily for trigeminal neuralgia. 4. Patch right eye at night and apply eye lubric ant to prevent corneal PATIENT NAME: KELLE CALDERÓN [id number] abrasion. 5. Would recommend a course of acyclovir at 400 mg 5 times a day for 10 days. 6. The patient may transfer to a rehab or facility that is closer to their home as discussed tonight. We would recommend this p atient follow up with her neurologist. The patient should continue with PT, OT; work on a daily basis as she awaits transfer. The patient should undergo an MRI of the brain without contrast in an open air MRI as soon as possible. If the patient cannot transfer to the outside hospital that is closer to their home and the patient is required to stay here longer, we would recommend that we have case management arrange for this patient to undergo an MRI outside of [place], open air, before disch arge. This patient's prognosis remains guarded. [facility] recommendations can be made as this case evolves. Please note that teleneuro logy service will be on over the next several days. Dr. Keller, however, can be reached at . Dictated By: Heather Keller MD WT: PN:HARRY/ANNAMARIA/MARY KAY Conf#: [id number]#: [id number] Authenticated and Edited by Heather Keller MD On 11/08/20 3:02:03 PM Electronically Signed by Heather Keller on 10/12 03/03 at 1506 PATIENT NAME: KELLE CALDERÓN 3600 2020-10-31 11:03:00-00:00 [facility] Hospitalist Progress Note REPORT#:[id number] REPORT STATUS: Signed DATE:10/31/20 TIME: 1103 PATIENT: KELLE CALDERÓN UNIT #: [id number] ROOM/BED: B.160-W : 75 AGE: 45 SEX: F ATTEND: Brody Dacosta MD ADM AUTHOR: Tyesha Dacosta * ALL edits or amendments must be made on the el ectronic/computer document * Subjective Free Text Subj Notes Free Text Subj Notes: No acute complaints mental status stable Stable left-sided facial droop Objective General VS/I O: Vital Signs: Date Time Temp Pulse Resp B/P B/P Pulse O2 O2 Flow FiO2 Mean Ox Delivery Rate 10/31 0729 97.3 66 18 103/65 78.0 96 Room air 10/31 0418 98.1 64 20 138/41 73.2 97 Room air 10/30 2352 97.7 81 20 113/69 83.5 97 Room air 10/30 2229 97 Nasal 2 cannula 10/30 2029 98.2 74 20 114/71 85.3 97 Room air 10/30 1640 98.6 79 18 130/75 93.4 94 Nasal cannula 10/30 1253 98.1 71 20 116/73 87.3 100 Room air 24 hour I O ending at 0700: 10/31 0700 10/30 1900 Intake Total 300 Output Total 2200 Balance -1900 Intake, Oral 300 Output, Urine 2200 PATIENT WEIGHT: Weight (lb): 370 Weight (oz): 0 Weight (kg): 167.676048 Medications: Active Meds + DC'd Last 24 Hrs Iopamidol 100 ML ONCE PRN IV (DC) Pantoprazole 40 MG BID PO Acetazolamide 1,000 MG BID PO (CKD) Carbamazepine 400 MG BID PO Simvastatin 10 MG BEDTIME PO Mupirocin 1 APPLIC BID NASAL Dextrose/Water 25 ML ASDIR PRN IV (CKD) Glucagon 1 MG ASDIR PRN IM Glucose Polymer 15 GM ASDIR PRN PO Insulin Human Lispro See Admin Criteria ASDIR PRN SUBQ Acetaminophen 650 MG Q4H PRN PRN PO Bisacodyl 10 MG DAILY PRN RECTAL Labetalol HCl 10 MG ASDIR PRN IV Ondansetron HCl 4 MG Q4H PRN PRN IV Physical Exam Head/Eyes: atraumatic, EOMI, PERRLA Cardiovascular: normal heart sounds, regular rat e rhythm Respiratory: aerating well, clear to auscultatio n Abdomen: non-tender, normal bowel sounds, soft Extremities: moves all, no edema Neuro/TOUR SALES REPRESENTATIVE: abnormal speech, focal weakness, aler t, oriented X 3 Skin: dry, intact, no rash Results Findings/Data: Laboratory Tests 10/31 Chemistry POC Glucose (70 - 119 MG/DL) 119 143 H Radiology data: Recent Impressions: CAT SCAN - CT ANGIO HEAD 10/30 1415 Report Impression - Status: SIGNED Entered: 10/30/2020 1443 Impression: 1. Unremarkable CT angiogram of the carotid mo laine. CT angiography of the [place] with Cont rast Indication: Stenosis, aneurysm. Comparison: 10/27/2020. Technique: Axial images were obtained post IV co ntrast with Sagittal and coronal MIPS. This exam was performed according to our [facility] ental dose-optimization program, which includes automa octaviano exposure control, adjustment of the mA and/or kV according to wendi ent size and/or use of iterative reconstruction technique. Total exam D LP 1429.59 Contrast: 95 mL Isovue-370 IV. Findings: The internal carotid arteries, middle cerebral a rteries anterior cerebral arteries are normal in appearance. The anterior communicating artery is patent. Posterior communicating arteri es are patent. The vertebrobasilar system, including the grounds and nursery specialist ior cerebral arteries, are normal in appearance. The right posterior ce rebral arteries primarily supplied by the right carotid system. No evidence of aneurysm, stenosis, or occlusion. No evidence of vascular malformation. Impression: 1. Normal exam. Impression By: Bud Sherman MD CAT SCAN - CT ANGIO NECK 10/30 1415 Report Impression - Status: SIGNED Entered: 10/30/2020 1443 Impression: 1. Unremarkable CT angiogram of the carotid mo laine. CT angiography of the [place] with Cont rast Indication: Stenosis, aneurysm. Comparison: 10/27/2020. Technique: Axial images were obtained post IV co ntrast with Sagittal and coronal MIPS. This exam was performed according to our [facility] ental dose-optimization program, which includes automa octaviano exposure control, adjustment of the mA and/or kV according to wendi ent size and/or use of iterative reconstruction technique. Total exam D LP 1429.59 Contrast: 95 mL Isovue-370 IV. Findings: The internal carotid arteries, middle cerebral a rteries anterior cerebral arteries are normal in appearance. The anterior communicating artery is patent. Posterior communicating arteri es are patent. The vertebrobasilar system, including the grounds and nursery specialist ior cerebral arteries, are normal in appearance. The right posterior ce rebral arteries primarily supplied by the right carotid system. No evidence of aneurysm, stenosis, or occlusion. No evidence of vascular malformation. Impression: 1. Normal exam. Impression By: Radha.[email or web address] - Omi Sherman MD Results: labs reviewed, vital signs stable Diagnosis, Assessment Plan Free Text DxA P Notes Free text DxA P notes: Acute Ischemic CVA s/P TPA - Keep BP < 180/105 after bolus administ ered with Cardene titrated to SBP 160- 180 and DBP 90-105 - Hydrate with NS as tolerated by cardiopulmonar y status - Avoid relative hypotension and dehydration - No antiplatelet or anticoagulant x [address] tPA bolus -Patient unfortunately too large for MRI machine . Restart antiplatelets per neurology. - Bedrest in ICU x 24 hours post tPA bolus - MRI brain - Telemetry monitoring for atrial fibrillation - SCD - NPO till swallow evaluation passed - Check lipids, hemoglobin A1C - Strict glucose control - CT head post 24 hours unremarkable - Echocardiogram with bubble study - Ultimate antithrombotic th erapy (24 hrs post tPA bolus) to be determined based on etiology and extent of the stroke - PT/OT/ST consults -Neuro consult -Lipid profile, TSH, B12, folic acid, ESR Aic -MRA the head and neck Hypertension -Permissive hypertension as mentioned above DM2 -A1c -Lipitor Morbid obesity -Advised on weight loss - Artillery Maintenance Supervisor consult QUALITY: DVT AND GI PROPHYLAXIS order ed; PPI and SCD. CI for Pharmacological prophylaxis for now HOME MEDS RECONCILED and ordered. Advance Care Planning and Code Status Discussed: Full Code Disposition: PT OT recommending postacute rehab Neurology final recs at 1106 RPT #:[id number] END OF REPORT 2020-10-31 08:09:00-00:00 [id number] [place], [place] [address] PATIENT NAME: KELLE CALDERÓN ADMIT DATE: 1 ACCOUNT NO: [id number] ROOM NO: [place] AGE: 45 REPORT TYPE: eCAROTID ULTRASOUND SEX: F ADMITTING PHYSICIAN:Tyesha Dacosta MD ATTENDING PHYSICIAN:Tyesha Dacosta MD Name: KELLE CALDERÓN Study Date: 10/31/2020 08: 09 AMPatient Location: [facility] URN: [id number] Gender: Female : 1975 Gender: Female Age: 45 yrs Ethnicity: Other Reason For Study: STROKE Carotid Smart Chart Right Left PSV EDV PSV EDV cm/sec cm/sec cm/sec cm/sec 135.0 36.6 Dist ICA 105.4 33.7 105.4 23.9 Prox ICA 80.1 14.1 102.6 21.1 Dist CCA 88.6 18.3 82.0 18.6 Prox CCA 140.6 30.9 52.0 19.7 Vertebral A 77.3 30.9 ICA/CCA ratio 1.3 cm/sec 0.75 Interpretation Summary <50% right internal carotid artery stenosis. <50% left internal carotid artery stenosis. Antegrade flow is noted in the vertebral arterie s Right Extracranial There is intimal thickening but no signi ficant atherosclerotic plaque noted in the right common carotid artery. <50% right inte rnal carotid artery stenosis. There is intimal thickening but no signi ficant atherosclerotic plaque noted in the right internal carotid artery. Antegrade colton w is noted in the right vertebral artery. Left Extracranial PATIENT NAME: KELLE CALDERÓN [id number] There is intimal thickening but no signi ficant atherosclerotic plaque noted in the left common carotid artery. <50% left civil engineering intern al carotid artery stenosis. There is intimal thickening but no signi ficant atherosclerotic plaque noted in the left internal carotid artery. Antegrade flow is noted in the left vertebral artery. Measurements and Calculations Right No Left Unit Laterality CCA ratio lena 102.6 140.6 cm/sec ICA ratio lena 135.0 105.4 cm/sec Electronically signed by: KURT TAVERAS MD 04:54 PM Ordering Physician: Heather Keller Referring Physician: Zander Camilo Performed By: Sona Camilo at 1654 PATIENT NAME: KELLE CALDERÓN 3600 2020-10-30 10:35:00-00:00 [facility] REPORT#:[id number] REPORT STATUS: Signed DATE:10/30/20 TIME: 1035 PATIENT: KELLE CALDERÓN UNIT #: [id number] ROOM/BED: [address] : [address] AGE: 45 SEX: F ATTEND: Brody Dacosta MD ADM AUTHOR: Tyesha Dacosta * ALL edits or amendments must be made on the [employer]/computer document * Subjective Free Text Subj Notes Free Text Subj Notes: No change in mental status Objective General VS/I O: Vital Signs: Date Time Temp Pulse Resp B/P B/P Pulse O2 O2 F low FiO2 Mean Ox Delivery Rate 10/30 1640 98.6 79 18 130/75 93.4 94 Nasal cannula 10/30 1253 98.1 71 20 116/73 87.3 100 Room air 10/30 0838 97.7 68 14 115/78 90.1 96 Room air 10/30 0444 97.7 66 20 106/67 80.4 97 Room air 10/29 2240 98.4 68 20 111/71 84.5 96 Room air 10/29 2000 68 18 123/75 93 96 10/29 194 Nasal 2 cannula 10/29 1944 98.7 Nasal 2 cannula 10/29 1900 70 16 120/71 91 100 05/19 1800 60 15 119/73 90 98 24 hour I O ending at 0700: 10/30 0700 10/29 1900 Intake Total 250 600 Output Total 400 1100 Balance -150 -500 Intake, Oral 250 600 Number Voids 1 Output, Urine 400 1100 Patient 167.829 kg Weight PATIENT WEIGHT: Weight (lb): 370 Weight (oz): 0 Weight (kg): 167.302808 Medications: Active Meds + DC'd Last 24 Hrs Iopamidol 100 ML ONCE PRN IV (DC) Pantoprazole 40 MG BID PO Acetazolamide 1,000 MG BID PO (CKD) Carbamazepine 400 MG BID PO Simvastatin 10 MG BEDTIME PO Mupirocin 1 APPLIC BID NASAL Dextrose/Water 25 ML ASDIR PRN IV (CKD) Glucagon 1 MG ASDIR PRN IM Glucose Polymer 15 GM ASDIR PRN PO Insulin Human Lispro See Admin Criteria ASDIR PRN SUBQ Acetaminophen 650 MG Q4H PRN PRN PO Bisacodyl 10 MG DAILY PRN RECTAL Labetalol HCl 10 MG ASDIR PRN IV Ondansetron HCl 4 MG Q4H PRN PRN IV Physical Exam Head/Eyes: atraumatic, EOMI, PERRLA Cardiovascular: normal heart sounds, regular rat e rhythm Respiratory: aerating well, clear to auscultatio n Abdomen: non-tender, normal bowel sounds, soft Extremities: moves all, no edema Neuro/TOUR SALES REPRESENTATIVE: abnormal speech, focal weakness, aler t, oriented X 3 Skin: dry, intact, no rash Results Findings/Data: Laboratory Tests 10/30 1826 Chemistry Sodium (133 - 144 mmol/L) 140.0 Potassium (3.5 - 5.1 mmol/L) 3.7 Chloride (95 - 105 mmol/L) 111 H Carbon Dioxide (21 - 32 mmol/L) 23 Anion Gap (4.0 - 15.0 GAP calc) 6.0 BUN (7 - 18 MG/DL) 15 Creatinine (0.55 - 1.30 MG/DL) 0.54 L Glucose (70 - 110 MG/DL) 116 H POC Glucose (70 - 119 MG/DL) 112 84 Calcium (8.5 - 10.1 MG/DL) 8.7 Specimen Appearance (1 NORMAL Index/DL) 1 LAURIE L <2 MG Specimen Hemolysis (1 NORMAL Index/DL) 4 SMALL 50-200 MG H Laboratory Tests 10/30 0521 Hematology WBC (4.1 - 12.1 K/mm3) 7.4 RBC (3.8 - 5.5 M/mm3) 3.84 Hgb (10.6 - 15.8 G/DL) 11.1 Hct (31.8 - 47.4 %) 37.8 MCV (80.1 - 101.1 fL) 98.4 MCH (25.3 - 35.3 pg) 28.9 MCHC (32.7 - 35.1 G/DL) 29.4 L RDW (12.2 - 16.4 %) 14.6 Plt Count (155 - 337 K/mm3) 196 MPV (6.8 - 11.2 fL) 12.0 H Gran % (37.8 - 82.6 %) 69.4 Lymph % (Auto) (14.1 - 45.4 %) 22.1 [place] % (Auto) (2.5 - 11.7 %) 6.1 Eos % (Auto) (0.0 - 6.2 %) 1.6 Baso % (Auto) (0.0 - 2.1 %) 0.1 Gran # (2.0 - 13.7 k/mm3) 5.13 Lymph # (Auto) (0.6 - 3.8 K/mm3) 1.63 [place] # (Auto) (0.11 - 0.59 K/mm3) 0.45 Eos # (Auto) (0.0 - 0.4 K/mm3) 0.12 Baso # (Auto) (0.0 - 0.1 K/mm3) 0.01 Immature Gran % (0.0 - 2.0 %) 0.7 Nucleated RBC % (0.0 - 1.0 /100WBC%) 0.0 Nucleated RBCs # (0.0 - 0.05 K/mm3) 0.00 Radiology data: Recent Impressions: CAT SCAN - CT ANGIO HEAD 10/30 2065 Report Impression - Status: SIGNED Entered: 10/30/2020 7055 Impression: 1. Unremarkable CT angiogram of the carotid mo laine. CT angiography of the [place] with Cont rast Indication: Stenosis, aneurysm. Comparison: 10/27/2020. Technique: Axial images were obtained post IV co ntrast with Sagittal and coronal MIPS. This exam was performed according to our [facility] ental dose-optimization program, which includes automa octaviano exposure control, adjustment of the mA and/or kV according to wendi ent size and/or use of iterative reconstruction technique. Total exam D LP 1429.59 Contrast: 95 mL Isovue-370 IV. Findings: The internal carotid arteries, middle cerebral a rteries anterior cerebral arteries are normal in appearance. The anterior communicating artery is patent. Posterior communicating arteri es are patent. The vertebrobasilar system, including the grounds and nursery specialist ior cerebral arteries, are normal in appearance. The right posterior ce rebral arteries primarily supplied by the right carotid system. No evidence of aneurysm, stenosis, or occlusion. No evidence of vascular malformation. Impression: 1. Normal exam. Impression By: Bud Sherman MD CAT SCAN - CT ANGIO NECK 10/30 1415 Report Impression - Status: SIGNED Entered: 10/30/2020 1443 Impression: 1. Unremarkable CT angiogram of the carotid mo laine. CT angiography of the [place] with Cont rast Indication: Stenosis, aneurysm. Comparison: 10/27/2020. Technique: Axial images were obtained post IV co ntrast with Sagittal and coronal MIPS. This exam was performed according to our [facility] ental dose-optimization program, which includes automa octaviano exposure control, adjustment of the mA and/or kV according to wendi ent size and/or use of iterative reconstruction technique. Total exam D LP 1429.59 Contrast: 95 mL Isovue-370 IV. Findings: The internal carotid arteries, middle cerebral a rteries anterior cerebral arteries are normal in appearance. The anterior communicating artery is patent. Posterior communicating arteri es are patent. The vertebrobasilar system, including the grounds and nursery specialist ior cerebral arteries, are normal in appearance. The right posterior ce rebral arteries primarily supplied by the right carotid system. No evidence of aneurysm, stenosis, or occlusion. No evidence of vascular malformation. Impression: 1. Normal exam. Impression By: Bud Sherman MD Results: labs reviewed, vital signs stable Diagnosis, Assessment Plan Free Text DxA P Notes Free text DxA P notes: Acute Ischemic CVA s/P TPA - Keep BP < 180/105 after bolus administ ered with Cardene titrated to SBP 160- 180 and DBP 90-105 - Hydrate with NS as tolerated by cardiopulmonar y status - Avoid relative hypotension and dehydration - No antiplatelet or anticoagulant x [address] tPA bolus -Patient unfortunately too large for MRI machine . Restart antiplatelets per neurology. - Bedrest in ICU x 24 hours post tPA bolus - MRI brain - Telemetry monitoring for atrial fibrillation - SCD - NPO till swallow evaluation passed - Check lipids, hemoglobin A1C - Strict glucose control - CT head post 24 hours unremarkable - Echocardiogram with bubble study - Ultimate antithrombotic th erapy (24 hrs post tPA bolus) to be determined based on etiology and extent of the stroke - PT/OT/ST consults -Neuro consult -Lipid profile, TSH, B12, folic acid, ESR Aic -MRA the head and neck Hypertension -Permissive hypertension as mentioned above DM2 -A1c -Lipitor Morbid obesity -Advised on weight loss - Artillery Maintenance Supervisor consult QUALITY: DVT AND GI PROPHYLAXIS order ed; PPI and SCD. CI for Pharmacological prophylaxis for now HOME MEDS RECONCILED and ordered. Advance Care Planning and Code Status Discussed: Full Code at 1739 RPT #:[id number] END OF REPORT 2020-10-30 10:35:00-00:00 [facility] ([facility]) Clinical Note REPORT#:[id number] REPORT STATUS: Signed DATE:10/30/20 TIME: 1035 PATIENT: KELLE CALDERÓN UNIT #: [id number] ROOM/BED: [address] : [address] AGE: 45 SEX: F ATTEND: Brody Dacosta MD ADM AUTHOR: Tyesha Dacosta * ALL edits or amendments must be made on the el ectronic/computer document * Clinical Note Note: Advance Care Plan Had a full discussion with t he patient about advanced directives. We had a long discussion regarding the patient's need for CPR and defibrillation in the case of cardiac arrest and mechan ical ventilation and intubation in the case of respiratory arrest. Patient states that they understood the advance care planning terminology and descriptio n and would like to be full code. at 1739 RPT #:[id number] END OF REPORT 2020-10-29 11:25:00-00:00 [facility] ([facility] Hospitalist Progress Note REPORT#:[id number] REPORT STATUS: Signed DATE:10/29/20 TIME: 1125 PATIENT: KELLE CALDERÓN UNIT #: [id number] ROOM/BED: [facility] : 75 AGE: 45 SEX: F ATTEND: Brody Dacosta MD ADM AUTHOR: Tyesha Dacosta * ALL edits or amendments must be made on the [employer]/computer document * Subjective Free Text Subj Notes Free Text Subj Notes: No acute complaints. Still h as significant left-sided facial droop however able to converse and maintain diet Objective General VS/I O: Vital Signs: Date Time Temp Pulse Resp B/P B/P Pulse O2 O2 F low FiO2 Mean Ox Delivery Rate 10/29 1630 64 18 132/74 95 97 10/29 1611 98.2 70 10/29 1600 68 20 109/70 86 99 10/29 1530 67 21 111/63 80 95 10/29 1500 62 16 113/74 88 99 10/29 1430 64 18 122/70 90 99 10/29 1400 68 18 133/87 106 100 10/29 1330 66 19 125/81 98 99 10/29 1300 71 103/57 77 98 10/29 1230 62 14 117/59 75 99 10/29 1200 98.4 20 10/29 1200 71 12 110/64 81 97 10/29 1130 60 13 120/69 89 100 / 1100 58 13 129/69 93 100 10/29 1034 65 20 127/73 94 98 10/29 1030 68 17 98 05 1005 65 18 131/76 96 99 10/29 1004 62 17 129/70 94 97 10/29 1003 98 Room air 10/29 1000 87 19 98 05 0930 66 17 115/70 87 98 10/29 0900 67 14 119/70 89 96 05/19 0800 98.0 62 18 05/19 0730 64 13 126/70 93 99 05/19 0700 65 11 131/72 96 87 05/19 0630 57 13 119/63 85 96 05/19 0600 55 12 116/67 86 98 05/19 0530 57 12 128/78 95 100 05/19 0520 97.8 05/19 0500 61 12 120/75 93 100 05/19 0430 64 12 124/62 86 98 05/19 0400 58 11 120/65 87 97 05/19 0331 61 12 118/58 83 100 05/19 0300 60 15 105/52 75 100 05/19 0231 59 12 98/50 70 100 05/19 0200 60 11 129/59 84 100 05/19 0130 65 15 136/76 98 93 05/19 0114 98.5 05/19 0100 62 11 129/61 88 100 05/19 0030 57 12 126/60 86 100 05/19 0010 64 10 121/62 85 99 05/18 2330 63 13 98/55 73 97 05/18 2300 59 14 100/56 73 98 05/18 2230 67 15 116/67 87 99 05/18 2200 64 14 119/60 84 99 05/18 2130 61 15 125/79 97 100 05/18 2100 66 17 119/65 86 100 05/18 2030 66 16 107/56 75 99 05/ 2000 67 15 98/53 69 98 10/28 1949 99 Nasal 2 cannula 10/28 1940 97.8 98 Nasal 2 cannula 10/28 1930 56 12 114/58 82 99 10/28 1900 62 13 113/58 79 100 24 hour I O ending at 0700: 10/29 0700 10/28 1900 Intake Total 1450.00 Output Total 1200 850 Balance -1200 600.00 Intake, IV 600.00 Intake, Oral 850 Number Voids 3 Output, Urine 1200 850 Patient 167.9 kg Weight Weight Bed scale Measurement Method PATIENT WEIGHT: Weight (lb): 370 Weight (oz): 0 Weight (kg): 167.136159 Medications: Active Meds + DC'd Last 24 Hrs Pantoprazole 40 MG BID PO Acetazolamide 1,000 MG BID PO (CKD) Carbamazepine 400 MG BID PO Simvastatin 10 MG BEDTIME PO Pantoprazole 40 MG BID IV (DC) Metoclopramide HCl 10 MG Q8HR IV (DC) Mupirocin 1 APPLIC BID NASAL Dextrose/Water 25 ML ASDIR PRN IV (CKD) Glucagon 1 MG ASDIR PRN IM Glucose Polymer 15 GM ASDIR PRN PO Insulin Human Lispro See Admin Criteria ASDIR PRN SUBQ Acetaminophen 650 MG Q4H PRN PRN PO Bisacodyl 10 MG DAILY PRN RECTAL Labetalol HCl 10 MG ASDIR PRN IV Nicardipine/Sodium Chloride 200 ML ASDIR IV (DC) Ondansetron HCl 4 MG Q4H PRN PRN IV Physical Exam General appearance: alert, awake, oriented Head/Eyes: atraumatic, EOMI, PERRLA Cardiovascular: normal heart sounds, regular rat e rhythm Respiratory: aerating well, clear to auscultatio n Abdomen: non-tender, normal bowel sounds, soft Extremities: moves all, no edema Neuro/TOUR SALES REPRESENTATIVE: abnormal speech, focal weakness, aler t, oriented X 3 Skin: dry, intact, no rash Results Findings/Data: Laboratory Tests 10/29 10/29 0555 0028 Chemistry Sodium (133 - 144 mmol/L) 139.0 Potassium (3.5 - 5.1 mmol/L) 3.7 Chloride (95 - 105 mmol/L) 109 H Carbon Dioxide (21 - 32 mmol/L) 28 Anion Gap (4.0 - 15.0 GAP calc) 2.0 L BUN (7 - 18 MG/DL) 13 Creatinine (0.55 - 1.30 MG/DL) 0.62 Glucose (70 - 110 MG/DL) 120 H POC Glucose (70 - 119 MG/DL) 91 Calcium (8.5 - 10.1 MG/DL) 8.7 Specimen Appearance (1 NORMAL Index/DL) 1 LAURIE L <2 MG Specimen Hemolysis (1 NORMAL Index/DL) 1 NORMAL <10 MG Laboratory Tests 10/29 0555 Hematology WBC (4.1 - 12.1 K/mm3) 6.2 RBC (3.8 - 5.5 M/mm3) 3.95 Hgb (10.6 - 15.8 G/DL) 11.5 Hct (31.8 - 47.4 %) 38.9 MCV (80.1 - 101.1 fL) 98.5 MCH (25.3 - 35.3 pg) 29.1 MCHC (32.7 - 35.1 G/DL) 29.6 L RDW (12.2 - 16.4 %) 14.7 Plt Count (155 - 337 K/mm3) 192 MPV (6.8 - 11.2 fL) 11.8 H Gran % (37.8 - 82.6 %) 68.5 Lymph % (Auto) (14.1 - 45.4 %) 23.5 [place] % (Auto) (2.5 - 11.7 %) 5.0 Eos % (Auto) (0.0 - 6.2 %) 2.3 Baso % (Auto) (0.0 - 2.1 %) 0.2 Gran # (2.0 - 13.7 k/mm3) 4.22 Lymph # (Auto) (0.6 - 3.8 K/mm3) 1.45 [place] # (Auto) (0.11 - 0.59 K/mm3) 0.31 Eos # (Auto) (0.0 - 0.4 K/mm3) 0.14 Baso # (Auto) (0.0 - 0.1 K/mm3) 0.01 Immature Gran % (0.0 - 2.0 %) 0.5 Nucleated RBC % (0.0 - 1.0 /100WBC%) 0.0 Nucleated RBCs # (0.0 - 0.05 K/mm3) 0.00 Laboratory Tests 10/29 0555 Toxicology Carbamazepine (4.0 - 12.0 mcG/ML) 7.4 Radiology data: Recent Impressions: CAT SCAN - CT HEAD/BRAIN W/O CONT 10/28 8914 Report Impression - Status: SIGNED Entered: 10/29/2020 0966 IMPRESSION: No acute intracranial process seen. Impression By: [email or web address] - Edmond Carter MD Results: labs reviewed, vital signs stable Diagnosis, Assessment Plan Free Text DxA P Notes Free text DxA P notes: Acute Ischemic CVA s/P TPA - Keep BP < 180/105 after bolus administ ered with Cardene titrated to SBP 160- 180 and DBP 90-105 - Hydrate with NS as tolerated by cardiopulmonar y status - Avoid relative hypotension and dehydration - No antiplatelet or anticoagulant x [address] tPA bolus -Patient unfortunately too large for MRI machine . Restart antiplatelets per neurology. - Bedrest in ICU x 24 hours post tPA bolus - MRI brain - Telemetry monitoring for atrial fibrillation - SCD - NPO till swallow evaluation passed - Check lipids, hemoglobin A1C - Strict glucose control - CT head post 24 hours unremarkable - Echocardiogram with bubble study - Ultimate antithrombotic th erapy (24 hrs post tPA bolus) to be determined based on etiology and extent of the stroke - PT/OT/ST consults -Neuro consult -Lipid profile, TSH, B12, folic acid, ESR Aic -MRA the head and neck Hypertension -Permissive hypertension as mentioned above DM2 -A1c -Lipitor Morbid obesity -Advised on weight loss - Artillery Maintenance Supervisor consult QUALITY: DVT AND GI PROPHYLAXIS order ed; PPI and SCD. CI for Pharmacological prophylaxis for now HOME MEDS RECONCILED and ordered. Advance Care Planning and Code Status Discussed: Full Code Total critical care time >35 minutes. Critical c are time includes patient management by me, time spent at the patients bed side, time to review lab and imaging results, discussing patient care , documentation in the medical record, and time spent with the family or caregiver. at 1834 RPT #:[id number] END OF REPORT 2020-10-29 11:08:00-00:00 [facility] ([facility]) DT PROGRESS NOTE REPORT#:[id number] REPORT STATUS: Signed DATE:10/29/20 TIME: 1108 PATIENT: KELLE CALDERÓN UNIT #: [id number] ROOM/BED: [place] [id number]-D : 75 AGE: 45 SEX: F ATTEND: Brody Dacosta MD ADM AUTHOR: Lisette Savage MD * ALL edits or amendments must be made on the el Managed [employer]/computer document * Progress Note Progress Note Lying in bed no distress fareed ke alert oriented denies any new change in her neuro status same left-sided weakness. Left facial droop, anicteric sclera, no conjunctival injection, pupils equally reactive to light No tenderness over frontal and maxillary sinuses No evidence of pharyngeal or tonsillar congestio n, midline uvula No use of accessory muscles No thyromegaly, cervical mandibular or supraclav icular clavicular lymph nodes Midline trachea, no JVD or bruit Thorax is symmetric with goo d expansion, lungs resonant, breath sounds vesicular : No Rales, wheezes or rhonchi. Cardiovascular examination n ormal heart sounds, normal S1-S2, no murmur, rub or gallop. Abdominal examination: Soft nontender, no organo megaly or palpable mass, no guarding or rebound tenderness normal bowel soun ds. Musculoskeletal: Full range of motion, normal in spection, no muscle spasm, clubbing, cyanosis, calf tenderness or pedal brandy ma. Neurologic exam: Left hemipl egia, slow speech, left facial weakness, motor power 5/5 right upper and lower extremity, GCS 15/15. Current Medications Sig/Iliana Start time Last Medication Dose Route Stop Time Status Admin Acetazolamide 1,000 MG BID 10/28 2199 CKD 10/29 PO 11/27 2200 1009 Carbamazepine 400 MG BID 10/28 220 AC 10/29 PO 11/27 220 0931 Simvastatin 10 MG BEDTIME 10/28 2100 AC 10/28 PO 11/27 2101 2225 Pantoprazole 40 MG BID 10/28 1115 AC 10/29 IV 11/27 1116 0942 Metoclopramide HCl 10 MG Q8HR 10/28 0530 DC IV 10/28 2259 2227 Mupirocin 1 APPLIC BID 10/28 0530 AC 10/29 NASAL 11/01 2101 0932 Dextrose/Water 25 ML ASDIR PRN 10/28 0515 CKD IV 11/27 0516 Glucagon 1 MG ASDIR PRN 10/28 0515 AC IM 11/27 0516 Glucose Polymer 15 GM ASDIR PRN 10/28 0515 AC PO 11/27 0516 Insulin Human Lispro See Dose ASDIR PRN 10/28 0 515 AC Insts (1) SUBQ 11/27 0516 Acetaminophen 650 MG Q4H PRN PRN 10/28 0500 AC 10/28 PO 11/27 0501 2226 Bisacodyl 10 MG DAILY PRN 10/28 0500 AC RECTAL 11/27 0501 Labetalol HCl 10 MG ASDIR PRN 10/28 0500 AC IV 11/27 0501 Nicardipine/Sodium 200 ML ASDIR 10/28 0500 AC Chloride IV 11/27 0501 Ondansetron HCl 4 MG Q4H PRN PRN 10/28 0500 AC / IV 11/27 0501 0825 Sodium Chloride 1,000 ML .[id number] 10/28 0500 DC / IV 10/28 1819 0544 Sodium Chloride 1,000 ML .Q10H 10/28 0300 DC IV 10/28 1259 0330 Assessment and plan: Acute left hemiplegia: Acute CVA status post thrombolytic therapy repeat CT scan did not show any evidence of acute ischemia, pat ient clinically has left hemiplegia. Patient may need MRI brain f or further work-up, neurology on board follow recommendation. Hypertension: Patient is off Cardene infusion bl ood pressure stable can gradually restart home antihypertensive medicati ons. High intracranial pressure: As per patient she h as a diagnosis of high intracranial pressure by neurology when she had a left Naranjo's palsy. She says she was taking dexamethasone not sure if she is still on it. Nutrition: Patient was evaluated by speech thera py to assess swallowing to prevent aspiration may start oral feed if clear from speech therapy. Continue DVT and GI prophylaxis. Total critical care time >35 minutes. To vicente critical care time documented does not include time spent on separately billed proc edures or the services of residents, students, nurses or physician assista nts. I personally saw and examined the patient. I have reviewed all diagno stic interpretations and treatment plans as written. I was present for the burnette portions of any procedures performed and the inclusive time noted in any critical care statement. Critical care time includes patient m anagement by me, time spent at the patients bedside, time to review lab and imaging results, discussing patient care, documentation in the medical record, and time spent with the f amily or caregiver. Electronically Signed by Lisette Savage MD on 10/29 at 1113 RPT #:[id number] END OF REPORT 2020-10-28 11:16:00-00:00 [facility] ([facility]) Hospitalist Progress Note REPORT#:[id number] REPORT STATUS: Signed DATE:10/28/20 TIME: 1116 PATIENT: KELLE CALDERÓN UNIT #: [id number] [address] AGE: 45 SEX: F ATTEND: Varun Alfonso MD ADM AUTHOR: Tyesha Dacosta * ALL edits or amendments must be made on the el Managed [employer]/computer document * Subjective Free Text Subj Notes Free Text Subj Notes: Patient admitted and seen by restaurant kitchen manager this a.m . Chart reviewed. Appropriate orders placed. Objective General VS/I O: Vital Signs: Date Time Temp Pulse Resp B/P B/P Pulse O2 O2 F low FiO2 Mean Ox Delivery Rate 10/28 1949 99 Nasal 2 cannula 05/18 1801 64 17 139/62 89 100 05/18 1700 61 15 124/62 85 97 05/18 1600 Nasal 2 cannula 05/18 1600 98.2 Nasal 2 cannula 05/18 1600 64 14 120/57 82 97 05/18 1500 73 18 111/66 81 98 05/18 1400 79 22 121/63 86 100 05/18 1300 64 16 128/61 88 100 05/18 1200 97.7 Nasal 2 cannula 05/18 1200 64 11 125/59 85 100 05/18 1100 63 12 121/78 92 100 05/18 1030 62 05/18 1030 16 128/83 101 100 05/18 1000 63 05/18 1000 18 130/81 99 99 05/18 0930 66 05/18 0930 15 138/80 101 98 05/18 0900 63 05/18 0900 11 147/78 106 100 05/18 0852 99 Nasal 2 cannula 05/18 0830 64 05/18 0830 12 140/74 101 100 05/18 0800 66 05/18 0800 97.7 Nasal 2 cannula 05/18 0800 Nasal 2 cannula 05/18 0800 97.7 Nasal 2 cannula 05/18 0800 12 138/76 99 98 05/18 0745 64 05/18 0730 63 13 149/77 107 99 05/18 0715 63 12 149/76 105 100 05/18 0700 63 11 144/72 101 99 05/18 0645 68 13 151/72 103 100 05/18 0630 65 12 156/68 103 100 05/18 0615 68 12 153/74 101 100 05/18 0600 69 11 156/72 103 100 05/18 0545 70 12 157/70 105 100 05/18 0530 73 12 164/76 108 96 05/18 0517 97.7 98 Nasal 2 cannula 10/28 0515 63 158/77 110 100 10/28 0501 99 150/72 102 97 10/28 0451 72 166/70 101 98 10/28 0338 98.0 70 17 128/67 87 96 Room air 10/28 0300 98.0 74 17 132/69 90 97 Room air 10/28 0200 98.0 86 17 107/62 77 96 Room air 10/28 0135 98.2 67 16 102/57 72 94 Room air 24 hour I O ending at 0700: 10/28 0700 10/27 1900 Intake Total Output Total Balance Patient 167 kg Weight Weight Stated/Reported Measurement Method PATIENT WEIGHT: Weight (lb): 370 Weight (oz): 2.5 Weight (kg): 167.900 Medications: Active Meds + DC'd Last 24 Hrs Pantoprazole 40 MG BEDTIME PO (CAN) Simvastatin 10 MG BEDTIME PO Pantoprazole 40 MG BID IV Metoclopramide HCl 10 MG Q8HR IV Mupirocin 1 APPLIC BID NASAL Dextrose/Water 25 ML ASDIR PRN IV (CKD) Glucagon 1 MG ASDIR PRN IM Glucose Polymer 15 GM ASDIR PRN PO Insulin Human Lispro See Admin Criteria ASDIR PRN SUBQ Acetaminophen 650 MG Q4H PRN PRN PO Bisacodyl 10 MG DAILY PRN RECTAL Labetalol HCl 10 MG ASDIR PRN IV Nicardipine/Sodium Chloride 200 ML ASDIR IV Ondansetron HCl 4 MG Q4H PRN PRN IV Sodium Chloride 1,000 ML .[id number] IV (DC) Sodium Chloride 1,000 ML .Q10H IV (DC) Results Findings/Data: Laboratory Tests 10/28 10/28 10/28 10/28 10/28 1720 1244 0831 0535 0535 Chemistry POC Glucose (70 - 119 MG/DL) 103 99 97 Hemoglobin A1c (4.5 - 5.6 % IS-A1C) 7.3 H Estim Average Glucose (MG/DLest) 163 Vitamin B12 (183 - 986 PG/ML) 382 Folate (3.10 - 17.50 NG/ML) 7.78 10/28 10/28 0535 0535 Chemistry Sodium (133 - 144 mmol/L) 140.0 Potassium (3.5 - 5.1 mmol/L) 3.7 Chloride (95 - 105 mmol/L) 108 H Carbon Dioxide (21 - 32 mmol/L) 24 Anion Gap (4.0 - 15.0 GAP calc) 8.0 BUN (7 - 18 MG/DL) 17 Creatinine (0.55 - 1.30 MG/DL) 0.63 Glomerular Filtr Rate (>60 estGFR) 102 Glucose (70 - 110 MG/DL) 147 H Calcium (8.5 - 10.1 MG/DL) 8.2 L Phosphorus (2.5 - 4.9 MG/DL) 4.5 Magnesium (1.6 - 2.6 MG/DL) 2.4 Total Bilirubin (0.00 - 1.00 MG/DL) 0.11 Direct Bilirubin (0.00 - 0.30 MG/DL) < 0.10 Indirect Bilirubin (0.2 - 1.3 MG/DL) CALC THOMAS L AST (15 - 37 Unit/L) 15 ALT (12 - 78 Unit/L) 14 Total Alk Phosphatase (45 - 117 Unit/L) 86 Total Protein (6.4 - 8.2 G/DL) 6.6 Albumin (3.4 - 5.0 G/DL) 3.0 L Albumin/Globulin Ratio (1.2 - 2.2 RATIO) 0.8 L Triglycerides (0 - 150 MG/DL) 87 Cholesterol (133 - 200 MG/DL) 126 L LDL Cholesterol Measurd (0 - 129 MG/DL) 60 Non-HDL Cholesterol (<130 mg/dL) 77 HDL Cholesterol (40 - 59 MG/DL) 49 LDL/HDL Ratio (1.48 - 3.22 Avg Ratio) 1.22 L Cholesterol/HDL Ratio (0 RATIO) 2.57 TSH (0.340 - 4.820 mc IU/ML) 1.190 Specimen Appearance (1 NORMAL Index/DL) 1 LAURIE L <2 MG Specimen Hemolysis (1 NORMAL Index/DL) 1 NORMAL <10 MG Laboratory Tests 10/28 534 Coagulation PT (9.4 - 12.5 SECONDS) 12.5 INR (0.88 - 1.13 INR Unit) 1.10 PTT ([place]) (24 - 37.7 SECONDS) 28.3 Laboratory Tests 10/28 05 Hematology WBC (4.1 - 12.1 K/mm3) 7.2 RBC (3.8 - 5.5 M/mm3) 3.86 Hgb (10.6 - 15.8 G/DL) 11.0 Hct (31.8 - 47.4 %) 37.1 MCV (80.1 - 101.1 fL) 96.1 MCH (25.3 - 35.3 pg) 28.5 MCHC (32.7 - 35.1 G/DL) 29.6 L RDW (12.2 - 16.4 %) 14.6 Plt Count (155 - 337 K/mm3) 206 MPV (6.8 - 11.2 fL) 11.7 H Gran % (37.8 - 82.6 %) 69.5 Lymph % (Auto) (14.1 - 45.4 %) 21.8 [place] % (Auto) (2.5 - 11.7 %) 5.6 Eos % (Auto) (0.0 - 6.2 %) 2.1 Baso % (Auto) (0.0 - 2.1 %) 0.3 Gran # (2.0 - 13.7 k/mm3) 4.97 Lymph # (Auto) (0.6 - 3.8 K/mm3) 1.56 [place] # (Auto) (0.11 - 0.59 K/mm3) 0.40 Eos # (Auto) (0.0 - 0.4 K/mm3) 0.15 Baso # (Auto) (0.0 - 0.1 K/mm3) 0.02 Immature Gran % (0.0 - 2.0 %) 0.7 Nucleated RBC % (0.0 - 1.0 /100WBC%) 0.0 Nucleated RBCs # (0.0 - 0.05 K/mm3) 0.00 ESR (0 - 20 mm/hr) 23 H Laboratory Tests 10/28 1043 Urines Urine Color (YELLOW DESCRIPT) LIGHT-YELLOW Urine Appearance (CLEAR DESCRIPT) CLEAR Urine pH (4.6 - 8.0 pH UNITS) 6.5 Ur Specific [place] (1.001 - 1.035 SG) 1.040 H Urine Protein (<30 (1+) mg/dL) NEGATIVE (0) Urine Glucose (UA) (0 (NORMAL) mg/dL) NORMAL (0 ) Urine Ketones ((NEG) 0 mg/dL) NEGATIVE (0) Urine Blood (0 (NEG) mg/dL) NEGATIVE (0.00) Urine Nitrite (NEG SCREEN) NEGATIVE (0) Urine Bilirubin ((NEG) 0 mg/dL) NEGATIVE (0.0) Urine Urobilinogen (<2.0 (1+) mg/Dl) NORMAL (0) Ur Leukocyte Esterase ((NEG) 0 Leuk/mcL) NEGATI VE (0) Urine RBC (0 - 3 #RBC/HPF) NONE Urine WBC (0 - 3 #WBC/HPF) 0-3 Urine Mucus (NONE /LPF) RARE Diagnosis, Assessment Plan Free Text DxA P Notes Free text DxA P notes: Acute Ischemic CVA s/P TPA - Keep BP < 180/105 after bolus administ ered with Cardene titrated to SBP 160- 180 and DBP 90-105 - Hydrate with NS as tolerated by cardiopulmonar y status - Avoid relative hypotension and dehydration - No antiplatelet or anticoagulant x [address] tPA bolus - Consider starting aspirin 81 mg daily only if MRI brain was positive for acute stroke - Bedrest in ICU x 24 hours post tPA bolus - MRI brain - Telemetry monitoring for atrial fibrillation - SCD - NPO till swallow evaluation passed - Check lipids, hemoglobin A1C - Strict glucose control - CT head at 24 hours to evaluate for hemorrhage prior to initiation of antithrombotic therapy - Echocardiogram with bubble study - Ultimate antithrombotic th erapy (24 hrs post tPA bolus) to be determined based on etiology and extent of the stroke - PT/OT/ST consults -Neuro consult -Lipid profile, TSH, B12, folic acid, ESR Aic -MRA the head and neck Hypertension -Permissive hypertension as mentioned above DM2 -A1c -Lipitor Morbid obesity -Advised on weight loss - Artillery Maintenance Supervisor consult QUALITY: DVT AND GI PROPHYLAXIS order ed; PPI and SCD. CI for Pharmacological prophylaxis for now HOME MEDS RECONCILED and ordered. Advance Care Planning and Code Status Discussed: Full Code at 2126 RPT #:[id number] END OF REPORT 2020-10-28 11:10:00-00:00 [facility] ([facility]) Critical Care Consult Note REPORT#:[id number] REPORT STATUS: Signed DATE:10/28/20 TIME: 1110 PATIENT: KELLE CALDERÓN UNIT #: [id number] ROOM/BED: CCU34-D : 75 AGE: 45 SEX: F ATTEND: Varun Alfonso MD ADM AUTHOR: Lisette Savage MD * ALL edits or amendments must be made on the el ectronic/computer document * History of Present Illness HPI Requesting clinician: Critical care service Free Text HPI Notes Free Text HPI Notes: 45-year-old female with history of hypertension, recent left Naranjo's palsy and stroke transferred from [facility] because of acute onset left-sided weakness and dysarthria. Onset is about 8:45 PM and she r eceived TPA at 2220 at [facility] and transferred here. Blood pressure wa s elevated, treated with labetalol and nicardipine drip. CT of the head s howed no acute abnormality. Her Covid was negative. Sodium was 142, potassiu m 3.5, creatinine 0.8, INR is 1. Glucose 188. CBC was unremarkable. Her NIHSS score prior to TPA (per Nurse 's note) was 12, improved to 6 with TPA but with persistent left upper and left lower extremity weakness. Patient denied any chest pain, palpitation, head ache, syncope, nausea or vomiting, fever or chills, Cough, shortness of b reath, dysuria, hematuria, melena, hematochezia, hematemesis, abdominal ksenia n, claudication symptoms. According to patient she had work-up done for her bowels pulse which showed that she has a high clinical depression she was start ed on dexamethasone with some improvement in her symptoms. She says she had spinal tap done and the diagnosis was made after that. She said before her left-si ded weakness she was able to walk around and take care of herself she had some difficulty speech because of her left Naranjo's palsy but it was not dysarthric. 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 History - Adult longitudinal Allergies: Coded Allergies: amoxicillin (Severe, rash 10/27/20) Review of Systems ROS Additional notes: A complete 12 point review of systems was perfor med, positive and pertinent negatives are recorded in the HPI above, the rest of the system were negative. Objective Physical Exam VS/I O: Last Documented: Result Date Time Pulse 62 10/28 1030 Pulse Ox 100 05/18 1030 B/P 128/83 10/28 1030 B/P Mean 101 10/28 1030 Resp 16 10/28 1030 O2 Delivery Nasal cannula 10/28 0852 O2 Flow Rate 2 10/28 0852 Temp 97.7 10/28 0800 24 hour I O ending at 0700: 10/28 0700 10/27 1900 Intake Total Output Total Balance Patient 167 kg Weight Weight Stated/Reported Measurement Method Patient Weight and BMI Weight (kg): 167.900 BMI: 65.6 General appearance: alert, awake, oriented, no a cute distress, pleasant, conversational, mental status normal, no respira tory distress Head/Eyes: atraumatic, clear cornea, PERRL, PERR LA, left facial droop and weakness with numbness ENT: normal nose, normal pharynx, normal sinus Neck: full range of motion, normal thyro id, supple/no meningismus, no bruit/NL carotids, no JVD, no masses or swelling Cardiovascular: normal S1/S2 , no ectopy, no gallop, no heave, no murmur, no rub, no thrill Respiratory: aerating well, clear to auscultatio n, symmetric expansion, no distress Gastrointestinal: tolerating clear liquids Abdomen: soft, non-tender, normal bowel sounds, normal rectal tone, no CVA tenderness, no distention, no guarding, no mass/ organomegaly, no rebound Genitourinary: no bladder distention, no flank p ain, no aguirre Extremities: normal capillar y refill, normal range of motion, no calf tenderness , no clubbing, no cyanosis, no edema Musculoskeletal: normal inspection Neuro/TOUR SALES REPRESENTATIVE: alert, oriented X 3, left hemiplegia with slow but clear speech Skin: intact, normal color, normal temperature Diagnosis, Assessment Plan Diagnosis, Assessment Plan Problem list/A P: 1. Left-sided weakness 2. CVA (cerebral vascular accident) Orders: Acute left hemiplegia: Most likely from ischemic stroke received TPA based on normal CT scan and clinical findings. Will need repeat CT brain as per post TPA protocol, neurology on board follow recommendati on. Hypertension: Patient is off Cardene infusion bl ood pressure stable can gradually restart home antihypertensive medicati ons. High intracranial pressure: As per patient she h as a diagnosis of high intracranial pressure by neurology when she had a left Naranjo's palsy. She says she was taking dexamethasone not sure if she is still on it. Nutrition: Patient is getting speech the rapy evaluation to rule out aspiration due to facial weakness. Continue DVT and GI prophylaxis. Total critical care time >35 minutes. To vicente critical care time documented does not include time spent on separately billed proc edures or the services of residents, students, nurses or physician assista nts. I personally saw and examined the patient. I have reviewed all diagno stic interpretations and treatment plans as written. I was present for the burnette portions of any procedures performed and the inclusive time noted in any critical care statement. Critical care time includes patient m anagement by me, time spent at the patients bedside, time to review lab and imaging results, discussing patient care, documentation in the medical record, and time spent with the f amily or caregiver. Electronically Signed by Lisette Savage MD on 10/28 at 1120 RPT #:[id number] END OF REPORT 2020-10-28 10:55:00-00:00 [id number] [address] PATIENT NAME: KELLE CALDERÓN ADMIT DATE: ACCOUNT NO: [id number] ROOM NO: [place] [address] AGE: 45 REPORT TYPE: eECHOCARDIOGRAM REPORT SEX: F ADMITTING PHYSICIAN:Omayra Alfonso MD ATTENDING PHYSICIAN:Omayra Alfonso MD Name: KELLE CALDERÓN Study Date: 10/28/2020 10: 55 [address] URN: [id number] BP: 164/76 mmHg : 64 in Gender: Female Weight: 370 lb : 1975 Gender: Female Age: 45 yrs Ethnicity: Other BSA: 2.5 m2 Reason For Study: CVA Cardiac Measurements with Normal Values: LA dimension: 3.5 cm 19-40 mm LVIDd: 3.8 cm 37-56 mm LVIDs: 2.6 cm - IVSd: 1.5 cm6-11 mm RVDd: 3.6 cm 7-23 mm MMode/2D Measurements Calculations LVPWd: 1.3 cm FS: 31.3 % EDV(Teich): 62.5 ml ESV(Teich): 25.1 ml EF(Teich): 59.9 % LVOT diam: 2.0 cm LVOT area: 3.2 cm2 Doppler Measurements Calculations MV E max lena: 96.7 cm/sec MV dec slope: 572.0 cm /sec2 MV A max lena: 98.2 cm/sec MV dec time: 0.17 sec MV E/A: 0.98 Ao V2 max: 149.1 cm/sec LV V1 max P.8 mmHg Ao max P.9 mmHg LV V1 max: 96.9 cm/sec MANUEL(V,D): 2.1 cm2 PA V2 max: 109.6 cm/sec TR max lena: 197.2 cm/sec PA max P.8 mmHg TR max P.6 mmHg PATIENT NAME: KELLE CALDERÓN 3600 RVSP(TR): 20.6 mmHg RAP systole: 5.0 mmHg Conclusions A complete two-dimensional transthoracic echocar diogram was performed (2D, M- mode, Doppler and color flow Doppler). The study was technically difficult. Limited views were obtained. Left ventricular systolic function is normal. Ejection Fraction = 55-60%. Regional wall motion abnormalities cannot be exc luded due to limited visualization. There is mild concentric left ventricular hypert rophy. Right ventricular systolic pressure is normal. There is trace tricuspid regurgitation. There is no pericardial effusion. Left Ventricle The left ventricle is normal in size. There is m ild concentric left ventricular hypertrophy. Left ventricular systol ic function is normal. The transmitral spectral Doppler flow patter n is normal for age. Ejection Fraction = 55-60%. Regional wall motion abnormali ties cannot be excluded due to limited visualization. Right Ventricle The right ventricle is normal in size and functi on. There is normal right ventricular wall thickness. Atria The left atrial size is normal. Right atrial siz e is normal. Mitral Valve The mitral valve is not well visualized. There i s trace mitral regurgitation. Tricuspid Valve The tricuspid valve is not well visualized. Ther e is trace tricuspid regurgitation. Right ventricular systolic pressu re is normal. Aortic Valve The aortic valve is not well visualized. No hemo dynamically significant valvular aortic stenosis. No aortic regurgitatio n is present. Pulmonic Valve The pulmonic valve is not well visualized. Trace pulmonic valvular regurgitation. Great Vessels The aortic root is normal size. Pericardium/Pleural PATIENT NAME: KELLE CALDERÓN 2760 There is no pericardial effusion. Electronically signed by: Jeffrey Andersen MD 10/28 03:55 PM Ordering Physician: Omayra Alfonso Referring Physician: Zander Camilo Performed By: Evelyn Chaudhry Electronically Signed by Jeffrey Andersen MD on at 1555 PATIENT NAME: KLELE CALDERÓN 3600 2020-10-28 04:33:00-00:00 [facility] ([facility]) Hospitalist History Physical REPORT#:[id number] REPORT STATUS: Signed DATE:10/28/20 TIME: 043 PATIENT: KELLE CALDERÓN UNIT #: [id number] ROOM/BED: [address] : [birth year] AGE: 45 SEX: F ATTEND: Brody Dacosta MD ADM AUTHOR: Omayra Alfonso MD * ALL edits or amendments must be made on the [employer]/computer document * History of Present Illness HPI Chief complaint: CVA PCP: PCP: No Primary or Family Physician HPI: This is a 45-year-old female with history of hyp ertension, transferred from [facility] because of acute onset left-sided w eakness and dysarthria. Onset is about 8:45 PM and she received TPA at 2220 at [facility] and transferred here. Blood pressure was jaimie vated, treated with labetalol and nicardipine drip. CT of the head showed no acute abnormality. Her Covid was negative. Sodium was 142, potassium 3.5, creatinine 0.8, INR is 1 . Glucose 188. CBC was unremarkable. Her NIHSS score prior to T PA (per Nurse's note) was 12, improved to 6 with TPA but with persi stent left upper and left lower extremity weakness. Patient denied any chest pain, palpitation, head ache, syncope, nausea or vomiting, fever or chills, Cough, shortness of b reath, dysuria, hematuria, melena, hematochezia, hematemesis, abdominal ksenia n, claudication symptoms. History Past Medical Surgical Hx Additional medical history: Left-sided Naranjo's palsy Hypertension DM2 Morbid obesity History of CVA Additional surgical history: Hysterectomy x3 Cholecystectomy Tubal ligation Knee surgery x3 Family History Additional family history: Negative for CVA in the family Social History Additional social history: Denies abuse of alcohol, cigarettes, or illicit drug. Medication/Allergy-Vaccine Hx Allergies: Coded Allergies: amoxicillin (Severe, rash 10/27/20) Review of Systems Free Text ROS Notes Free Text ROS Notes: 14 point review of system sagastume s been performed and pertinent findings as mentioned in the HPI, otherwise the rest of the Physical Exam VS/I O: Vital Signs Date Temp Pulse Resp B/P B/P Mean Pulse Ox FiO2 10/28 98.0-98.2 67-86 16-17 102-132/57-69 72-90 94-97 Last Documented: Result Date Time Pulse Ox 96 10/28 0338 B/P 128/67 10/28 0338 B/P Mean 87 10/28 0338 O2 Delivery Room air 10/28 033 Temp 98.0 10/28 0338 Pulse 70 10/28 0338 Resp 17 10/28 0338 24 hour I O ending at 0700: 10/28 0700 10/27 1900 Intake Total Output Total Balance Patient 167 kg Weight Weight Stated/Reported Measurement Method Patient Weight and BMI Weight (kg): 167.000 BMI: 63.2Vital Signs: Date Time Temp Pulse Resp B/P B/P Pulse O2 O2 F low FiO2 Mean Ox Delivery Rate 10/28 0338 98.0 70 17 128/67 87 96 Room air 10/28 0300 98.0 74 17 132/69 90 97 Room air 10/28 0200 98.0 86 17 107/62 77 96 Room air 10/28 0135 98.2 67 16 102/57 72 94 Room air General: Patient is awake and alert, not in respiratory d istress HEENT: Head is normocephalic and atraumatic. EOM is int act. No periorbital edema Normal external ear and naris. Midline tongue. Neck: Neck is supple, no thyromegaly, range of motion is intact Chest and lungs: Breath sounds symmetric and clear, no intercosta l retraction CVS: Regular rhythm. No thrill. Palpable radial pulse . Abdomen: Not distended, nontender. Soft Extremities: No edema or cyanosis, or gangrene both lower ext remities Neuro: Patient is awake and alert . Left facial droop. Left upper and left lower extremity weakness 3/5. Diminished sensation lef t upper and left lower extremity. Some dysarthria. Cerebellar is on rig ht side are normal. Visual muñoz are normal. Patient can answer qu estions and is oriented but takes this time to think about it. Psych: Appropriate affect and thought content Skin: No rash Back: Spine midline. No CVA tenderness Scores NIH Stroke Scale NIH Stroke Scale NIH Stroke Scale Response Value Level of Consciousness Alert and responsive (0) 0 Ask Month Age Both questions right (0) 0 Blink Eyes/Squeeze Hands Performs both tasks (0 ) 0 Horizontal EOM NL side/side eye mvmt (0) 0 Visual Muñoz No visual loss (0) 0 Facial Palsy Partial, lower (2) 2 Right Arm Motor Drift (10s) No drift 10 sec (0) 0 Left Arm Motor Drift (10s) Drift, hits bed (2) 2 Right Leg Motor Drift (5s) No drift 5 sec (0) 0 Left Leg Motor Drift (5s) Drift, hits bed (2) 2 Limb Ataxia FNF/Heel-Thomas Untestable (0) 0 Sensation (Arms/Legs/Face) Pinprick less sharp (1) 1 Dysarthria Slur but intelligible (1) 1 Extinction/Inattention No extinct/inattent (0) 0 Total 8 Diagnosis, Assessment Plan Free Text A P: Acute Ischemic CVA s/P TPA - Keep BP < 180/105 after bolus administ ered with Cardene titrated to SBP 160- 180 and DBP 90-105 - Hydrate with NS as tolerated by cardiopulmonar y status - Avoid relative hypotension and dehydration - No antiplatelet or anticoagulant x [address] tPA bolus - Consider starting aspirin 81 mg daily only if MRI brain was positive for acute stroke - Bedrest in ICU x 24 hours post tPA bolus - MRI brain - Telemetry monitoring for atrial fibrillation - SCD - NPO till swallow evaluation passed - Check lipids, hemoglobin A1C - Strict glucose control - CT head at 24 hours to evaluate for hemorrhage prior to initiation of antithrombotic therapy - Echocardiogram with bubble study - Ultimate antithrombotic th erapy (24 hrs post tPA bolus) to be determined based on etiology and extent of the stroke - PT/OT/ST consults -Neuro consult -Lipid profile, TSH, B12, folic acid, ESR Aic -MRA the head and neck Hypertension -Permissive hypertension as mentioned above DM2 -A1c -Lipitor Morbid obesity -Advised on weight loss - Artillery Maintenance Supervisor consult QUALITY: DVT AND GI PROPHYLAXIS order ed; PPI and SCD. CI for Pharmacological prophylaxis for now HOME MEDS RECONCILED and ordered. Advance Care Planning and Code Status Discussed: Full Code ALL test results available at this time (Labs,im aging,EKG) have been reviewed and addressed upon. I have discussed the finding s, working diagnosis/ses and plan of treatment with patient and the patient is comfortable with the plan and admission, and also verbalized understanding. All concerns a nd questions addressed at this time to the best of my judgement based on initial and li mited data at this time. I am transferring the servic e of patient to Dr Dacosta who will continue patient's care and management effective 0600 am of 10/28/2020. I have initiated patient' s plan of care based on preliminary diagnosis/se s and I am deferring further work up, treatment, and consultations to the new Attending. I AM SIGNING OFF. LJSantosMD Tour Sales Representative Electronically Signed by Omayra Alfonso MD on 0 10/29/20 at 0920 RPT #:[id number] END OF REPORT 2020-10-28 01:52:00-00:00 [facility] ([facility]) EMERGENCY PROVIDER REPORT REPORT#:[id number] REPORT STATUS: Signed DATE:10/28/20 TIME: 0152 PATIENT: KELLE CALDERÓN UNIT #: [id number] ROOM/BED: B.160-W AGE: 45 SEX: F PCP PHYS: No Primary or Family Ph ysician SERVICE AUTHOR: Zander Camilo MD * ALL edits or amendments must be made on the el ectronic/computer document * HPI-Stroke/CVA Free Text HPI Notes Free Text HPI Notes History is limited by aphasia. Is a 44-year-old female transferred from [facility] for onset of left-sided weakness. She has a history of Naranjo's palsy and left-sided facial droop at baseline. Onset was around 8:45 PM. She was give n TPA and transferred here. He also has a history of prior stroke strokes. H emoglobin 11.7. White blood cell count 7.9. Platelets 219. Glucose 190. CT h ead was negative for acute intracranial abnormality. Patient was gi soraida labetalol 10 mg. Nicardipine drip. Alteplase. Covid test was negative. Sodium 142. Potassium 3.5. BUN 18. Creatinine 0.8. Bicarb is 26. INR 1. General Initial Greet Date/Time 10/28/20 0137 Presentation )( Last Known Well )( Time 2044 )( Progression since Onset Gradually improving Medications Prior to Arrival Medications/treatments prior to arrival: TPA 9 MG @ 2222 TPA INFUSION 81MG @ 3 Risk-Stroke/CVA Risk Stratification )( Initial NIH Stroke Scale )( Initial NIH Stroke Scale Response Value NIHSS Applicable? Yes 0 Level of Consciousness Alert and responsive (0) 0 Ask Month Age Both questions right (0) 0 Blink Eyes/Squeeze Hands Performs both tasks (0 ) 0 Horizontal EOM NL side/side eye mvmt (0) 0 Visual Muñoz No visual loss (0) 0 Facial Palsy Partial, lower (2) 2 Right Arm Motor Drift (10s) No drift 10 sec (0) 0 Left Arm Motor Drift (10s) Drift, hits bed (2) 2 Right Leg Motor Drift (5s) No drift 5 sec (0) 0 Left Leg Motor Drift (5s) Drift, hits bed (2) 2 Limb Ataxia FNF/Heel-Thomas No ataxia (0) 0 Sensation (Arms/Legs/Face) Pinprick less sharp (1) 1 Language Aphasia Mild loss fluency (1) 1 Dysarthria No dysarthria (0) 0 Extinction/Inattention No extinct/inattent (0) 0 Total 8 Review of Systems ROS Statements Complete sys rev neg except as marked. PMH-Stroke/CVA Stated Complaint CVA Allergies Coded Allergies: amoxicillin (Severe, rash 10/27/20) Home Medications Reported Medications acetaZOLAMIDE (DIAMOX) 1,000 MG PO BID traZODone (DESYREL) 50 MG PO BEDTIME ASPIRIN EC (ECOTRIN) 81 MG PO DAILY ONDANSETRON ODT (ZOFRAN ODT) 4 MG PO Q8H PRN PRN NAUSEA AND VOMITING PIOGLITAZONE (ACTOS) 45 MG PO DAILY ATORVASTATIN (LIPITOR) 40 MG PO BEDTIME FUROSEMIDE (LASIX) 40 MG PO DAILY OMEPRAZOLE ER (PriLOSEC) 40 MG PO DAILY ALPRAZolam (XANAX) 0.5 MG PO Q8H PRN PRN ANXIETY DICLOFENAC SODIUM ER (VOLTAREN) 75 MG PO BID ERGOCALCIFEROL (VITAMIN D2) 50,000 UNITS PO Q7D ERYTHROMYCIN (AK-MYCIN 0.5% OPHTH OINT) 1 APPLIC EACH EYE QID LISINOPRIL (ZESTRIL) 20 MG PO DAILY carBAMazepine (TEGretol) 400 MG PO Q12H INSULIN GLARGINE (LANTUS) 15 UNITS SUBQ BEDTIME Smoking status: Smoking status for patients 13 years old or old er: Unknown,if ever smoked Physical Exam Vital Signs Vital Signs First Documented: Result Date Time Pulse Ox 94 10/28 0135 B/P 102/57 10/28 0135 B/P Mean 72 10/28 0135 O2 Delivery Room air 10/28 013 Temp 98.2 10/28 0135 Pulse 67 10/28 0135 Resp 16 10/28 0135 Last Documented: Result Date Time Pulse Ox 97 10/28 0300 B/P 132/69 10/28 0300 B/P Mean 90 10/28 0300 O2 Delivery Room air 10/28 0300 Temp 98.0 10/28 0300 Pulse 74 10/28 0300 Resp 17 10/28 0300 Review of Vital Signs Reviewed Basic Physical Exam Basic PE HEAD: Atraumatic/NC , EYES: PERRL, conj clear, ENT: Membranes moist, ABD : Soft/non-tender, EXT: No g ross abnormality, SKIN: No rashes, warm/dry, PSYCH: NL thought content Focused PE General/Const General/Const Awake, Alert, No acute distress MS Neck Neck Supple, No meningismus Resp/Chest Respiratory/Chest Breath sounds NL, No respirat ory distress Cardiovascular Cardiovascular Heart rate NL, Regular rhythm Neurologic Neurologic Oriented X3 Text/Dict Notes Slowed speech and may be slightly dysarthric. Le ft facial droop. Weakness in left arm and leg. Decreased sensation on the left side. Cerebellar is on right side are normal. Visual muñoz are laurie l. Patient can answer questions and is oriented but takes this time to think ab out it. Per EMS they think the patient is improving since their transport. Procedures Stroke Thrombolytic Therapy rtPA Administration given by outside hospital MDM-Stroke/CVA ED Course Medication(s) Ordered Medication(s) Ordered: Electrolytic, Caloric, And Jose R Sig/Iliana Start time Last Medication Dose Route Stop Time Status Admin Sodium Chloride 1,000 ML .Q10H 10/28 0300 UNV IV 10/28 1259 Patient Discharge Departure Vital Signs/Condition Vital Signs First Documented: Result Date Time Pulse Ox 94 10/28 0135 B/P 102/57 10/28 0135 B/P Mean 72 10/28 0135 O2 Delivery Room air 10/28 0135 Temp 98.2 10/28 0135 Pulse 67 10/28 0135 Resp 16 10/28 0135 Last Documented: Result Date Time Pulse Ox 97 10/28 0300 B/P 132/69 / 0300 B/P Mean 90 10/28 0300 O2 Delivery Room air 10/28 0300 Temp 98.0 10/28 0300 Pulse 74 10/28 0300 Resp 17 10/28 0300 All vital signs available at the time of this en try have been reviewed. Clinical Impression Clinical Impression Primary Impression: Stroke Disposition Decision Admit Admit Physician Name Omayra Alfonso MD Admit Physician Hospitalist )( Admission Accepts Yes )( Accepted Time 0246 )( Accepted Date 10/28/20 Critical Care Time Spent (minutes): 31 Services Performed Patient management by Darion zhao spent at bedside, Reviewing test results, Reviewing imaging, Discussing wendi ent care, Documentation in record Separately billable procedures excluded from darion augie. Electronically Signed by Zander Camilo MD on at 0729 RPT #:[id number] END OF REPORT 2020-10-27 22:21:00-00:00 [facility] ([facility]) EMERGENCY PROVIDER REPORT REPORT#:[id number] REPORT STATUS: Signed DATE:10/27/20 TIME:2220 PATIENT: KELLE CALDERÓN UNIT #: [id number] ROOM/BED: : [birth year] AGE: 44 SEX: F PCP PHYS: No Prima ry or Family Physician SERVICE AUTHOR: Lisa Amaya MD * ALL edits or amendments must be made on the el ectronic/computer document * HPI-Stroke/CVA Free Text HPI Notes Free Text HPI Notes 44-year-old female past medical history of diabetes, hyperlipidemia, hypertension, CVA (2019), and Naranjo's palsy prese nts via EMS for evaluation of stroke. Per patient's , patient and famil y were driving home from restaurant when she suddenly became nauseous and diaphoretic shortly after patient developed slurred speech, worsening left facial droop, left upper and lower extremity weakness. EMS was called patient was brought directly to [facility]. General Initial Greet Date/Time 10/27/202203 )( Stroke Notification Alert Advance Notification by EMS? Yes Date Alert Received 10/27/20 )( Time Alert Received 2153 Presentation )( Last Known Well )( Time 2044 )( Progression since Onset Unchanged Risk-Stroke/CVA Risk Stratification )( Initial NIH Stroke Scale )( Initial NIH Stroke Scale Response Value NIHSS Applicable? Yes 0 Level of Consciousness Alert and responsive (0) 0 Ask Month Age Both questions right (0) 0 Blink Eyes/Squeeze Hands Performs both tasks (0 ) 0 Horizontal EOM NL side/side eye mvmt (0) 0 Visual Muñoz No visual loss (0) 0 Facial Palsy Unil complete, up low (3) 3 Right Arm Motor Drift (10s) No drift 10 sec (0) 0 Left Arm Motor Drift (10s) No effort, limb fail s (3) 3 Right Leg Motor Drift (5s) No drift 5 sec (0) 0 Left Leg Motor Drift (5s) No effort, limb fails (3) 3 Limb Ataxia FNF/Heel-Thomas Untestable (0) 0 Sensation (Arms/Legs/Face) Complete sensory los s (2) 2 Language Aphasia No aud comprehension (3) 3 Dysarthria Severe slur, unintel (2) 2 Extinction/Inattention No extinct/inattent (0) 0 Total 16 Review of Systems ROS Statements Unable to Obtain ROS Medical condition PMH-Stroke/CVA Stated Complaint POSSIBLE STROKE Allergies Coded Allergies: amoxicillin (Severe, rash 10/27/20) Physical Exam Vital Signs Vital Signs First Documented: Result Date Time Pulse Ox 99 10/27 2154 O2 Delivery Nasal cannula 10/27 2154 O2 Flow Rate 3 10/27 2154 B/P 151/90 10/27 2204 B/P Mean 110 10/27 2204 Temp 36.8 10/27 2204 Pulse 78 10/27 2204 Resp 10/27 Last Documented: Result Date Time Pulse Ox 97 10/27 2232 B/P 151/90 10/27 2204 B/P Mean 110 10/27 2204 Temp 36.8 10/27 2204 Pulse 78 10/27 2204 Resp 18 10/27 2204 O2 Delivery Nasal cannula 10/27 2154 O2 Flow Rate 3 10/27 2154 Review of Vital Signs Reviewed, Vital signs abno rmal Focused PE General/Const General/Const Awake, Alert Appearance/Presentation Obese, morbidly. MS Head Head Atraumatic, Normocephalic Eyes Eyes Atraumatic, PERRL, EOMI Eyelids Ptosis L. Ears/Nose/Throat Ears/Nose/Throat Atraumatic, Airway patent, Muc ous membranes moist MS Neck Neck Atraumatic, Supple Resp/Chest Respiratory/Chest Atraumatic, Breath sounds NL Cardiovascular Cardiovascular Heart rate NL, Regular rhythm, H eart sounds NL Abdomen/GI Abdomen/GI Atraumatic, Soft, Non-tender, McBurn ey's non-tender, No guarding, No rebound Bowel Sounds/Distention Distention moderate. Negative: Bowel sounds hyp eractive, Bowel sounds hypoactive, Bowel sounds tympanitic. Skin Skin Atraumatic, Color NL, No rash, Warm Neurologic Mental Status Negative: Confused. Speech Slow, Slurred. Cranial Nerve Deficit 3 - ptosis, 7 - upper/asymetric frown, 7 - lowe r/asymetric smile. Focal Weakness Upper extremity L, Lower extremity L. Psychiatric Psychiatric Affect NL, Mood NL, Not suicidal, N ot homicidal Interpretation Diagnostics Lab Results Interpretation Results Laboratory Tests 10/27/202204: [Embedded Image Not Available] Laboratory Tests: 10/27 Chemistry POC Glucose (70 - 110 mg/dL) 190 H Serology SARS-CoV-2 Ag (Rapid) (Negative) NEGATIVE 10/27 2204 Chemistry Sodium (134 - 147 mmol/L) 142 Potassium (3.4 - 5.0 mmol/L) 3.5 Chloride (100 - 108 mmol/L) 109 H Carbon Dioxide (21 - 32 mmol/L) 26 Anion Gap (4.0 - 15.0 GAP calc) 7.0 BUN (7 - 18 MG/DL) 18 Creatinine (0.6 - 1.0 MG/DL) 0.8 Glomerular Filtr Rate (>60 estGFR) >=60 max est imate Glucose (70 - 110 MG/DL) 188 H Calcium (8.5 - 10.1 MG/DL) 8.5 Troponin I (0.000 - 0.045 NG/ML) < 0.015 Coagulation INR (0.8 - 1.2 INR Unit) 1.00 PTT (Sonny) (26 - 35 SECONDS) 32.7 PT Patient/Control Mix (9.3 - 12.9 SECONDS) 11 .2 Hematology WBC (3.5 - 11.0 K/mm3) 7.9 RBC (4.70 - 6.10 M/mm3) 4.01 L Hgb (10.4 - 14.9 G/DL) 11.7 Hct (31.5 - 44.1 %) 38.6 MCV (84.5 - 98.6 Fl) 96.3 MCH (27.0 - 34.2 pg) 29.2 MCHC (31.5 - 34.0 G/DL) 30.3 L RDW (11.5 - 14.5 SD) 14.5 Plt Count (150 - 450 K/mm3) 219 MPV (7.0 - 10.5 fL) 11.20 H Recent Impressions: CAT SCAN - CT HEAD/BRAIN W/O CONT 10/27 2208 Report Impression - Status: SIGNED Entered: 10/27/20202216 IMPRESSION: No acute intracranial abnormality. No acute hemo rrhage, mass lesion or infarct. Preliminary findings were given to Dr. Amaya at 2211 hours on 10/27/2020 FOR INTERNAL CODING PURPOSES ONLY RESULT CODE: CVR Impression By: Dallas Kaur M.D. Lab Imaging Statement Laboratory radiographic studies reviewed and con sidered in the medical decision-making. Procedures Stroke Thrombolytic Therapy Start Time 2 Time Spent (minutes) 35 Procedure Performed by ED physician Consent/Timeout/Setup Informed consent provided, Consent from spouse rtPA Administration Yes, admin per protocol Post-Procedure No complications, Tolerated proce dure well, Patient stable MDM-Stroke/CVA Free Text MDM Notes Free Text MDM Notes 44-year-old female past medical history of diabetes, hyperlipidemia, hypertension, CVA (2019), and Naranjo's palsy prese nts via EMS for evaluation of stroke. CTH negative for acute ICH or acute/kashif te ischemia. Patient NIH 16. s/s not improving. Decision made to give tPA giv en no improvement in s/s. Spoke with neurology (Dr. Dye) wh o agrees with ER diagnosis work up and management. [facility] at capacity and unable to accept ICU level patient. Spoke with Dr. Camilo at [facility] who agrees w [facility] ER diagnosis work up management and plan to transfer to [facility]. Patients spouse agreeable to plan ED Course Medication(s) Ordered Medication(s) Ordered: Blood Formation,Coagulation Sig/Iliana Start time Last Medication Dose Route Stop Time Status Admin Alteplase, See Dose X1ED STA 10/27 2217 DC 10/11 7 Recombinant Insts (1) IV 10/27 Cardiovascular Drugs Sig/Iliana Start time Last Medication Dose Route Stop Time Status Admin Labetalol HCl 10 MG ASDIR PRN 10/27 223 AC IV 11/26 2228 Nicardipine HCl 25 MG ASDIR PRN 10/27 2229 AC Sodium Chloride 250 ML IV 11/26 222 Diagnostic Agents Sig/Iliana Start time Last Medication Dose Route Stop Time Status Admin Iopamidol 0 .STK-MED ONE 10/27 225 DC .ROUTE Electrolytic, Caloric, And Jose R Sig/Iliana Start time Last Medication Dose Route Stop Time Status Admin Sodium Chloride 50 ML ONCE ONE 10/27 2317 DC IV 10/27 2318 231 Sodium Chloride 1,000 ML X1ED STA 10/27 2217 DC IV 10/27 2218 Dose Instructions: (1)Alteplase, Recombinant: SEE ADMIN CRIT Consultation Consultation Referral/Consult Name Theresa Dye MD Respiratory Therapy Technician Called Neurology Requested Call Time 2231 Requested Call Date 10/27/20 Call Returned Call returned Call Returned Time 2231 Call Returned Date 10/27/20 Respiratory Therapy Technician Agrees with eval, Agrees with plan Differential Diagnosis Differential Diagnosis Cerebellar hemorrhage, Ce rebrovascular accident, Hyperglycemia, Hypoglycemia, Malignancy Patient Discharge Departure Vital Signs/Condition Vital Signs First Documented: Result Date Time Pulse Ox 99 10/27 2154 O2 Delivery Nasal cannula 10/27 2154 O2 Flow Rate 3 10/27 2154 B/P 151/90 10/27 2204 B/P Mean 110 10/27 2204 Temp 36.8 10/27 2204 Pulse 78 10/27 2204 Resp 18 10/27 2204 Last Documented: Result Date Time Pulse Ox 97 10/27 2232 B/P 151/90 10/27 2204 B/P Mean 110 10/27 2204 Temp 36.8 10/27 2204 Pulse 78 10/27 2204 Resp 18 10/27 2204 O2 Delivery Nasal cannula 10/27 2154 O2 Flow Rate 3 10/27 2154 All vital signs available at the time of this en try have been reviewed. Condition Guarded, Critical Clinical Impression Clinical Impression Primary Impression: CVA (cerebral vascular accid ent) Secondary Impressions: Left-sided weakness, Slur red speech Time of Impression 2227 Disposition Decision Transfer )( Request Time 2227 )( Request Date 10/27/20 Critical Care Time Spent (minutes): 35 Services Performed Patient management by me, Darion ghosh spent at bedside, Reviewing test results, Reviewing imaging, Discussing wendi ent care, Documentation in record, Time with fam/surrogate Separately billable procedures excluded from darion ghosh. Patient was critically ill due to: acute CVA My treatment and management were: tPA CC Note 1 Total critical care time [] minutes. Total criti diane care time documented does not include time spent on separately billed proc edures or the services of residents, students, nurses or physician assista nts. I personally saw and examined the patient. I have reviewed all diagno stic interpretations and treatment plans as written. I was present for the burnette portions of any procedures performed and the inclusive time noted in any critical care statement. Critical care time includes patient m anagement by me, time spent at the patients bedside, time to review lab and imaging results, discussing patient care, documentation in the medical record, and time spent with the f amily or caregiver. Electronically Signed by Lisa Amaya MD on at 2349 [facility] #: [id number] END OF REPORT 2020-10-27 22:20:00-00:00 [id number] [address] PATIENT NAME: KELLE CALDERÓN ADMIT DATE: 1 ACCOUNT NO: [id number] ROOM NO: AGE: 45 REPORT TYPE: eELECTROCARDIOGRAM SEX: F ADMITTING PHYSICIAN: ATTENDING PHYSICIAN: Order: [id number] Test Reason : (Not Selected) Test Date/Time Stamp: TueOct 27 2020 22:20:56 Blood Pressure : 151/090 mmHG Vent. Rate : 079 BPM Atrial Rate : 078 BPM P-R Int : 000 ms QRS Dur : 094 ms QT Int : 406 ms P-R-T Axes : 000 042 043 degree s QTc Int : 465 ms Normal sinus rhythm Incomplete right bundle branch block Confirmed by MD Dalila, Bill ([id number]) on 5:19:43 PM Referred By: Self Referred Confirmed by:Bill carpio MD at 1719 PATIENT NAME: KELLE CALDERÓN 3740 2020-05-02 14:34:00-00:00 [id number] [facility] [address] [place] [address] PATIENT NAME: KELLE CALDERÓN ADMIT DATE: 07/02/19 ACCOUNT NO: [id number] ROOM NO: AGE: 44 REPORT TYPE: ENDOSCOPY REPORT SEX: F ADMITTING PHYSICIAN: ATTENDING PHYSICIAN:Giuliano Abdullahi MD [facility] Patient Name: Calderón Kelle Attending MD: Giuliano Abdullahi MD Procedure Date: 05/02/2020 2:34 PM 91 Date of : 05/14 Admit Type: Outpatient Age: 44 Room: Room 2 Gender: Female Note Status: Finalized Procedure: Upper GI endoscopy Pre Procedure Diagnosis: Heartburn Assistants: Giuliano Abdullahi MD, Anushka prieto (Nurse), Francois Appiah RN (Nurse), Ernestine Hunter, Script Coordinator, Melinda Ramirez CRNA Anesthesia: General Anesthesia Procedure: Pre-Anesthesia Assessment: - Prior to the procedure, a History and Physica l was performed, and patient medications and allergies were reviewed. The patient is compete nt. The risks and benefits of the procedure and the sedation options and risks were discussed with the patient. All questions were answered and inform ed consent was obtained. Patient identification an d proposed procedure were verified by the physici an, the nurse and the anesthesiologist in the [facility] room. Mental Status Examination: alert and oriented. Airway Examination: normal oropharyng eal airway and neck mobility. Respiratory Examinati on: clear to auscultation. CV Examination: normal. Prophylactic Antibiotics: The patient does not require prophylactic antibiotics. Prior Anticoagulants: The patient has taken no previo us anticoagulant or antiplatelet agents. ASA Grade Assessment: III - A patient with severe systemi c disease. After reviewing the risks and benefits , the patient was deemed in satisfactory conditi on to undergo the procedure. The anesthesia plan was to use general anesthesia. Immediately prior to administration of medications, the patient was re-assessed for adequacy to receive sedatives. The heart rate, respiratory rate, oxygen saturatio ns, PATIENT NAME: KELLE CALDERÓN ACCOUNT #: BP [id number] blood pressure, adequacy of pulmonary ventilati on, and response to care were monitored throughout the procedure. The physical status of the patient w as re-assessed after the procedure. The benefits, risks, and alternatives to the procedure were discussed and informed consent w as obtained from the patient. I've assesed the pat ient on this date and reviewed the medical history, drug history, and previous anesthesia experience. Af ter obtaining informed consent, the scope was passe d under direct vision. Throughout the procedure, the patient's blood pressure, pulse, and oxygen saturations were monitored continuously.s were monitored continuously. The Endoscope was introduced through the mouth, and advanced to t he second part of duodenum. The upper GI endoscopy was accomplished without difficulty. The patient tolerated the procedure well. Post Procedure Findings: Moderately severe esophagitis with no bleeding was found. Biopsies were taken with a cold forceps for histology. Verifi cation of patient identification for the specimen was done by the nurse using the patient's name and date. Estimated blood loss was minimal. A large hiatal hernia was present. Localized mild inflammation characterized by er ythema was found in the gastric antrum. Biopsies were taken with a cold forceps for histology. Verification of patient identification for the specimen was done by the physician and nurse using the patient's name an d date. Estimated blood loss was minimal. The examined duodenum was normal. Complications: No immediate complications. Estimated Blood Loss: Post Procedure Diagnosis: - Moderately severe re flux esophagitis. Biopsied. - Large hiatal hernia. - Gastritis. Biopsied. - Normal examined duodenum. Recommendation: - Await pathology results. Giuliano Abdullahi MD Giuliano Abdullahi MD 05/02/2020 3:08:38 PM This report has been signed electronically. Number of Addenda: 0 Note Initiated On: 05/02/2020 2:34 PM Procedure Date: 05/02/2020 2:34:38 PM Provation {[id number]}.pdf ProVation FT PDF PATIENT NAME: CALDERÓNKELLE ACCOUNT #: BP [id number] at [id number] PATIENT NAME: KELLE CALDERÓN ACCOUNT #: BP [id number]
[2023-01-14 19:50] LABS: Absolute Lymphocytes (CBC) 1.2 K/uL (0.7-4.9); Hematocrit 40.4 % (36.0-45.0); Lymphocytes % 23.7 % (15.3-44.8); RBC Red Blood Cell Count 4.44 M/uL (3.86-4.86)
[2023-01-14] MEDS ORDERED: ONDANSETRON 4 MG/2 ML VIAL ONE (19:57)
[2023-01-14] MEDS ORDERED: NA CHLORIDE 0.9% 1,000 ML ONE ×2 (19:57→21:16)
[2023-01-14] MEDS ORDERED: FAMOTIDINE 20 MG/2 ML VIAL IV ONE (19:57)
[2023-01-14 20:22] LABS: Albumin 3.6 g/dL (3.4-5.0); Bilirubin Total 0.4 mg/dL (0.2-1.0); Potassium 3.5 mEq/L (3.5-5.1); Protein, Total 7.5 g/dL (6.4-8.2)
--- NOTE | 2023-01-14 20:58 | RAD REPORT ---
EXAM DESCRIPTION: CT - Chest Abdomen Pelvis W Cont - 01/14/2023 8:38 pm CLINICAL HISTORY: Chest pain. Vomiting. Abdominal pain COMPARISON: 2019 CT abdomen TECHNIQUE: Computed axial tomography of the chest, abdomen and pelvis was obtained. 100 cc Isovue-30 0 was administered intravenously. Oral contrast was not requested. This limits evaluation of bowel. All CT scans are performed using dose optimization technique as appropriate and may include automated exposure control or mA/KV adjustment according to patient size. FINDINGS: Area of subsegmental atelectasis right lower lobe. Otherwise, the lungs are clear No mediastinal or hilar lymphadenopathy. No pleural effusion. No pericardial effusion. Postsurgical changes involve the stomach. Cholecystectomy. Hysterectomy. Liver, spleen, pancreas, adrenals and kidneys are unremarkable No evidence of diverticulitis. 1 centimeter soft tissue structure distal sigmoid colon No adnexal mass Chronic marked compression deformity T10 vertebral body IMPRESSION: 1 centimeter soft tissue structure distal sigmoid colon may represent a mass or incomple te distention. Direct visualization is recommended
[2023-01-14] MEDS ORDERED: PROMETHAZINE INJ 25 MG/ML AMP ONE (21:15)
[2023-01-14] MEDS ORDERED: MORPHINE 2 MG/ML SYR ONE (21:15)
--- NOTE | 2023-01-15 00:22 | ER ---
Nurse's Notes [facility] Name: Kelle Calderón Age: 47 yrs Sex: Female : 1975 Arrival Date: 01/14/2023 Time: 19:07 Bed 2 Private MD: Diagnosis: Hypoglycemia, unspecified;Nausea with vomiting, unspecified;Gastro-esophageal reflux disease with esophagitis Presentation: 01/14 19:27 Chief complaint: Spouse and/or significant other states: "She had an endoscopy done mb9 today and her blood sugar was 73. They gave her medicine and her BGL was 119. She's been vomiting and not acting like herself so I brought her here. She has stomach pain that started today that is stabbing". Coronavirus screen: Vaccine status: Patient reports receiving the 2nd dose of the covid vaccine. Ebola Screen: No symptoms or risks identified at this time. Initial Sepsis Screen: Does the patient meet any 2 criteria? No. Patient's initial sepsis screen is negative. Does the patient have a suspected source of infection? No. Patient's initial sepsis screen is negative. Risk Assessment: Do you want to hurt yourself or someone else? Patient reports no desire to harm self or others. Onset of symptoms was January 14, 2023. 19:27 Method Of Arrival: Wheelchair mb9 19:27 Acuity: SIMRAN 3 mb9 Triage Assessment: 19:32 General: Appears uncomfortable, Behavior is drowsy. Pain: Complains of pain in abdomen. mb9 Neuro: Puri Agitation-Sedation Scale (RASS): 0 - Alert and Calm Level of Consciousness is awake, alert, obeys commands, Oriented to person, place, time, situation, Appropriate for age. Respiratory: Airway is patent Respiratory effort is even, unlabored, Respiratory pattern is regular, symmetrical. GI: Pt is actively vomiting. GI: Reports lower abdominal pain, upper abdominal pain, nausea. Derm: Skin is pink, warm \\T\\ dry. Musculoskeletal: Range of motion: intact in all extremities. Historical: - Allergies: 19:29 PENICILLINS; mb9 19:29 Plavix; mb9 19:29 Warfarin; mb9 - PMHx: 19:29 bells palsy; Irritable bowel syndrome; Migraines; CVA; Asthma; Hypertension; Kidney mb9 stones; lymphedema; Hyperlipidemia; Chronic pain; Depression; Diabetes - NIDDM; GERD; Sleep Apnea; blood clot; - PSHx: 19:29 section; Cholecystectomy; hysterectomy; hernia repair; knee X 3; Ligation of mb9 fallopian tube; 19:32 Gastric sleeve; mb9 - Immunization history:: Adult Immunizations up to date. - Social history:: Smoking status: Patient denies any tobacco usage or history of. Screenin:57 [facility] ED Fall Risk Assessment (Adult) History of falling in the last 3 months, jb4 including since admission No falls in past 3 months (0 pts) Confusion or Disorientation No (0 pts) Score/Fall Risk Level 0 - 2 = Low Risk Oriented to surroundings, Maintained a safe environment. Abuse screen: Denies threats or abuse. Nutritional screening: No deficits noted. Tuberculosis screening: No symptoms or risk factors identified. Assessment: 19:57 General: Appears in no apparent distress. uncomfortable, Behavior is calm, cooperative. jb4 Pain: Complains of pain in epigastric area Pain does not radiate. Pain currently is 6 out of 10 on a pain scale. Quality of pain is described as burning. Neuro: Level of Consciousness is awake, alert, obeys commands, Oriented to person, place, time, situation. Cardiovascular: Patient's skin is warm and dry. Respiratory: Airway is patent Respiratory effort is even, unlabored, Respiratory pattern is regular, symmetrical. GI: Abdomen is round non-distended, Pt is actively vomiting clear fluid. : No signs and/or symptoms were reported regarding the genitourinary system. EENT: No signs and/or symptoms were reported regarding the EENT system. Derm: Skin is intact, Skin is pink, warm \\T\\ dry. 21:00 Reassessment: Patient appears in no apparent distress at this time. Patient and/or jb4 family updated on plan of care and expected duration. Pain level reassessed. Patient is alert, oriented x 3, equal unlabored respirations, skin warm/dry/pink. 21:52 Reassessment: Patient appears in no apparent distress at this time. Patient and/or jb4 family updated on plan of care and expected duration. Pain level reassessed. Patient is alert, oriented x 3, equal unlabored respirations, skin warm/dry/pink. 21:59 Reassessment: Pt bgl 69, provider notified, pt given a Gatorade per providers request. jb4 23:44 Reassessment: Patient appears in no apparent distress at this time. Patient and/or jb4 family updated on plan of care and expected duration. Pain level reassessed. Patient is alert, oriented x 3, equal unlabored respirations, skin warm/dry/pink. Pt reports discomfort and nausea when drinking the gatorade, is able to keep it down. Provider notified. 01/15 01:04 Reassessment: Patient appears in no apparent distress at this time. Patient and/or jb4 family updated on plan of care and expected duration. Pain level reassessed. Patient is alert, oriented x 3, equal unlabored respirations, skin warm/dry/pink. Vital Signs: 01/14 19:27 BP 123 / 50; Pulse 69; Resp 16; Temp 98.2; Pulse Ox 100% on R/A; Weight 104.33 kg; mb9 Height 5 ft. 2 in. ; 21:52 BP 107 / 65; Pulse 51; Resp 16; Pulse Ox 97% on R/A; jb4 23:30 BP 102 / 51; Pulse 57; Resp 16; Pulse Ox 97% on R/A; jb4 01/15 01:04 BP 114 / 74; Pulse 49; Resp 16; Pulse Ox 99% ; jb4 01/14 19:27 Body Mass Index 42.07 (104.33 kg, 157.48 cm) mb9 ED Course: 01/14 19:08 Patient arrived in ED. mr 19:20 Queenie Shelton [facility]-C [facility]. sb4 19:20 Tuan Hirsch MD is Attending Physician. sb4 19:27 Arm band placed on. mb9 19:29 Triage completed. mb9 19:43 Inserted saline lock: 20 gauge in right antecubital area, using aseptic technique. jb4 Blood collected. 19:56 Deuce Mansfield, RN is Primary Nurse. jb4 19:56 Lipase Sent. jb4 19:56 CMP Sent. jb4 19:56 CBC with Diff Sent. jb4 20:40 Chest Abdomen Pelvis W Cont In Process Unspecified. EDMS 01/15 00:21 Manpreet Rodriguez MD is Referral Physician. sb4 01:04 Patient has correct armband on for positive identification. Bed in low position. Call jb4 light in reach. Side rails up X 1. 01:04 No provider procedures requiring assistance completed. IV discontinued, intact, jb4 bleeding controlled, No redness/swelling at site. Pressure dressing applied. Administered Medications: 01/14 19:56 Drug: NS 0.9% IV 1000 ml Route: IV; Rate: 1 bolus; Site: right antecubital; jb4 19:56 Drug: Famotidine IVP 20 mg Route: IVP; Site: right antecubital; jb4 19:56 Drug: Ondansetron IVP 4 mg Route: IVP; Site: right antecubital; jb4 21:40 Drug: Promethazine IVP 12.5 mg Route: IVP; Site: right antecubital; jb4 21:40 Drug: morphine IVP or IV 2 mg Route: IVP; Infused Over: 4 mins; Site: right antecubital;jb4 21:40 Drug: NS 0.9% IV 1000 ml Route: IV; Rate: 1 bolus; Site: right antecubital; jb4 01/15 01:04 Drug: metoCLOPramide IVP 10 mg Route: IVP; Site: right antecubital; jb4 01:04 Drug: Famotidine IVP 10 mg Route: IVP; Site: right antecubital; jb4 Medication: 01:04 VIS not applicable for this client. jb4 Outcome: 00:21 Discharge ordered by . sb4 01:04 Discharged to home via wheelchair, with family. jb4 01:04 Condition: stable 01:04 Discharge instructions given to patient, family, Instructed on discharge instructions, follow up and referral plans. medication usage, Demonstrated understanding of instructions, follow-up care, medications, Prescriptions given X 1. 01:05 Patient left the ED. jb4 Signatures: Dispatcher [employer] [facility] Duff Michelle mr AskewsonDeuce RN RN jb4 Queenie Shelton PA-C PAMichelle Brady RN RN [email or web address] Corrections: (The following items were deleted from the chart) 01/14 19:32 19:27 Chief complaint: Spouse and/or significant other states: "She had an endoscopy mb9 done today and her blood sugar was 73. They gave her medicine and her BGL was 119. She's been vomiting and not acting like herself so I brought her here. She has stomach pain that started today that is stabbing" mb9 23:45 21:30 BP 102 / 51; Pulse 57bpm; Resp 16bpm; Pulse Ox 97% RA; jb4 jb4
--- NOTE | 2023-01-15 00:22 | EDPHYS ---
Physician Documentation [facility] [place], [place] Name: Kelle Calderón Age: 47 yrs Sex: Female : 1975 Arrival Date: 01/14/2023 Time: 19:07 Bed 2 Private MD: ED Physician Tuan Hirsch HPI: 01/14 21:06 This 47 yrs old Female presents to ER via Wheelchair with complaints of Low sb4 Blood Sugar, Vomiting. 21:06 Patient had an endoscopy with esophageal dilation today by Dr. Rodriguez. Following the sb4 procedure, they noted that she was slightly hypoglycemic in the 70s. They gave her glucose and monitored her for a little while longer and ended up discharging her. When she got home, she had continual vomiting that they could not control. She was feeling extremely weak. Historical: - Allergies: 19:29 PENICILLINS; mb9 19:29 Plavix; mb9 19:29 Warfarin; mb9 - PMHx: 19:29 bells palsy; Irritable bowel syndrome; Migraines; CVA; Asthma; Hypertension; Kidney mb9 stones; lymphedema; Hyperlipidemia; Chronic pain; Depression; Diabetes - NIDDM; GERD; Sleep Apnea; blood clot; - PSHx: 19:29 section; Cholecystectomy; hysterectomy; hernia repair; knee X 3; Ligation of mb9 fallopian tube; 19:32 Gastric sleeve; mb9 - Immunization history:: Adult Immunizations up to date. - Social history:: Smoking status: Patient denies any tobacco usage or history of. ROS: 21:06 Eyes: Negative for injury, pain, redness, and discharge, Cardiovascular: Negative for sb4 chest pain, palpitations, and edema, Respiratory: Negative for shortness of breath, cough, wheezing, and pleuritic chest pain, Skin: Negative for injury, rash, and discoloration, Neuro: Negative for headache, weakness, numbness, tingling, and seizure. 21:06 Constitutional: Positive for fatigue, Negative for body aches, chills. 21:06 Abdomen/GI: Positive for abdominal pain, nausea and vomiting, Negative for diarrhea, constipation. 21:06 All other systems are negative. Exam: 21:06 Head/Face: Normocephalic, atraumatic. Eyes: Extra-ocular motions intact. Periorbital sb4 areas with no swelling, redness, or edema. Cardiovascular: Regular rate and rhythm with a normal S1 and S2. Respiratory: Lungs have equal breath sounds bilaterally, clear to auscultation and percussion. No rales, rhonchi or wheezes noted. No increased work of breathing, no retractions or nasal flaring. Abdomen/GI: Soft, non-tender, no distension. Skin: Warm, dry with normal turgor. Normal color with no rashes, no lesions, and no evidence of cellulitis. MS/ Extremity: Pulses equal, no cyanosis. Neurovascular intact. Full, normal range of motion. 21:06 Constitutional: The patient appears alert, awake, lethargic, pale, uncomfortable. Vital Signs: 19:27 BP 123 / 50; Pulse 69; Resp 16; Temp 98.2; Pulse Ox 100% on R/A; Weight 104.33 kg; mb9 Height 5 ft. 2 in. ; 21:52 BP 107 / 65; Pulse 51; Resp 16; Pulse Ox 97% on R/A; jb4 23:30 BP 102 / 51; Pulse 57; Resp 16; Pulse Ox 97% on R/A; jb4 01/15 01:04 BP 114 / 74; Pulse 49; Resp 16; Pulse Ox 99% ; jb4 01/14 19:27 Body Mass Index 42.07 (104.33 kg, 157.48 cm) 9 MDM: 01/14 19:20 Patient medically screened. sb4 21:06 Differential diagnosis: hypoglycemic episode, pancreatitis, anesthesia reaction. sb4 01/15 00:20 Data reviewed: vital signs, nurses notes, lab test result(s), radiologic studies, and sb4 as a result, I will discharge patient. Consideration of Admission/Observation Escalation of care including admission/observation considered. Historians other than the Patient: Spouse/Significant Other: . Counseling: I had a detailed discussion with the patient and/or guardian regarding: to return to the emergency department if symptoms worsen or persist or if there are any questions or concerns that arise at home. Response to treatment: the patient's symptoms have mildly improved after treatment. 01/14 19:36 Order name: CBC with Diff; Complete Time: 19:58 sb4 01/14 19:36 Order name: CMP; Complete Time: 20:25 sb4 01/14 19:36 Order name: Lipase; Complete Time: 20:25 sb4 01/14 19:39 Order name: Glucose, Ancillary Testing; Complete Time: 19:41 EDMS 01/14 22:07 Order name: Glucose, Ancillary Testing; Complete Time: 22:11 EDMS 01/14 23:47 Order name: Glucose, Ancillary Testing; Complete Time: 23:48 EDMS 01/14 20:07 Order name: Chest Abdomen Pelvis W Cont; Complete Time: 20:58 EDMS 01/14 19:20 Order name: Accucheck; Complete Time: 19:27 sb4 01/14 19:36 Order name: IV Saline Lock; Complete Time: 19:56 sb4 01/14 19:36 Order name: Labs collected and sent; Complete Time: 19:56 sb4 01/14 21:01 Order name: Accucheck; Complete Time: 21:59 sb4 01/14 23:28 Order name: Accucheck; Complete Time: 23:40 sb4 Administered Medications: 01/14 19:56 Drug: NS 0.9% IV 1000 ml Route: IV; Rate: 1 bolus; Site: right antecubital; jb4 19:56 Drug: Famotidine IVP 20 mg Route: IVP; Site: right antecubital; jb4 19:56 Drug: Ondansetron IVP 4 mg Route: IVP; Site: right antecubital; jb4 21:40 Drug: Promethazine IVP 12.5 mg Route: IVP; Site: right antecubital; jb4 21:40 Drug: morphine IVP or IV 2 mg Route: IVP; Infused Over: 4 mins; Site: right antecubital;jb4 21:40 Drug: NS 0.9% IV 1000 ml Route: IV; Rate: 1 bolus; Site: right antecubital; jb4 01/15 01:04 Drug: metoCLOPramide IVP 10 mg Route: IVP; Site: right antecubital; jb4 01:04 Drug: Famotidine IVP 10 mg Route: IVP; Site: right antecubital; jb4 Disposition Summary: 01/15/23 00:21 Discharge Ordered Location: Home sb4 Problem: new sb4 Symptoms: have improved sb4 Condition: Stable sb4 Diagnosis - Hypoglycemia, unspecified sb4 - Nausea with vomiting, unspecified sb4 - Gastro-esophageal reflux disease with esophagitis sb4 Followup: sb4 - With: Manpreet Rodriguez MD - When: 1 - 2 days - Reason: Recheck today's complaints, Continuance of care, Re-evaluation by your physician Discharge Instructions: - Discharge Summary Sheet sb4 - Nausea and Vomiting, Adult, [id number] sb4 Forms: - Medication Reconciliation Form sb4 - Thank You Letter sb4 - Antibiotic Education sb4 - Prescription Opioid Use sb4 - Patient Portal Instructions sb4 Prescriptions: - promethazine 25 mg Oral Tablet - take 1 tablet by ORAL route every 6 hours As needed; 12 tablet; Refills: 0, sb4 Product Selection Permitted Signatures: Dispatcher [employer] EDMS Deuce Mansfield RN RN jb4 Queenie Shelton PA-C PA-C sb4 Michelle Guadarrama RN RN mb9 Corrections: (The following items were deleted from the chart) 01/14 20:07 19:36 Chest Abdomen W/ Con+CT.RAD.BRZ ordered. EDGA EDMS
[2023-01-15] MEDS ORDERED: METOCLOPRAMIDE 10 MG/2mL INJ ONE (00:54)
[2023-01-15] MEDS ORDERED: FAMOTIDINE 20 MG/2 ML VIAL IV ONE (00:54)
[2023-01-15 01:58] VITALS: TEMP 98.2
[2023-01-15 02:03] VITALS: BP 114/74; O2SAT 99
== END 2023-01-15 01:05 | disposition home or self-care (01) ==
LOC: ER 19:07
DX: E11.649 Type 2 diabetes mellitus with hypoglycemia without coma (principal); K21.00 Gastro-esophageal reflux disease with esophagitis, without bleeding; Z88.0 Allergy status to penicillin; Z88.8 Allergy status to other drugs, medicaments and biological substances
CPT/HCPCS: 85025; 36415; 82947 ×4; 83690; 80053; 71260; 74177; 96375; 96374; 99284; Q9967; J2550; J2765; J2270; J2405; J7030 ×2

== ENCOUNTER 2023-02-10 16:11 | Emergency (ER) | payer OTHER ==
--- NOTE | 2023-02-10 16:36 | RAD REPORT ---
EXAM DESCRIPTION: CT - Ct Stroke Brain Wo Cont - 02/10/2023 4:30 pm CLINICAL HISTORY: STROKE ALERT COMPARISON: Head Brain Wo Cont dated 07/19/2022; Head Brain Wo Cont dated 06/19/2018 TECHNIQUE: Noncontrast head CT images were obtained without IV contrast. Multiplanar reformats were generated and reviewed. All CT scans are performed using dose optimization technique as appropriate and may include automated exposure control or mA/KV adjustment according to patient size. FINDINGS: No intracranial hemorrhage, mass, or edema. Midline structures are unremarkable. Normal ventricular caliber for age. Wan-white matter differentiation is preserved, without evidence of acute infarct. No abnormal extra- axial fluid collections. Mastoid air cells and visualized portions of the paranasal sinuses are clear. No acute bony findings. IMPRESSION: No evidence of an acute intracranial process. The findings were communicated to Fitz Farley on 02/10/2023 at 16:23 hours.
--- NOTE | 2023-02-10 16:39 | ER ---
Nurse's Notes [facility] Name: Kelle Calderón Age: 47 yrs Sex: Female : 1975 Arrival Date: 02/10/2023 Time: 16:11 Bed 7 Private MD: Diagnosis: Cerebral infarction, unspecified;Weakness;Facial weakness;Slurred speech Presentation: 02/10 16:29 Chief complaint: EMS states: patient was at her [facility] sx follow up appointment when she ap3 started having left sided facial droop. ems reports the patients blood sugar was 68 on scene. Coronavirus screen: At this time, the client does not indicate any symptoms associated with coronavirus-19. Ebola Screen: No symptoms or risks identified at this time. Risk Assessment: Do you want to hurt yourself or someone else? Patient reports no desire to harm self or others. Onset of symptoms was February 10, 2023 at 16:00. 16:29 Method Of Arrival: EMS: [facility] ap3 16:29 Acuity: SIMRAN 3 ap3 16:32 Care prior to arrival: IV initiated. 20 GA, in the left antecubital area. ap3 17:22 Initial Sepsis Screen: Does the patient meet any 2 criteria? No. Patient's initial ld1 sepsis screen is negative. Does the patient have a suspected source of infection? No. Patient's initial sepsis screen is negative. Historical: - Allergies: 16:30 PENICILLINS; ap3 16:30 Plavix; ap3 16:30 Warfarin; ap3 - PMHx: 16:30 Asthma; bells palsy; blood clot; Chronic pain; CVA; Depression; Diabetes - NIDDM; GERD; ap3 Hyperlipidemia; Hypertension; Irritable bowel syndrome; Kidney stones; lymphedema; Migraines; Sleep Apnea; - Immunization history:: Adult Immunizations up to date. - Family history:: not pertinent. - Social history:: Smoking status: Patient denies any tobacco usage or history of. Patient/guardian denies using alcohol. - Hospitalizations: : No recent hospitalization is reported. Screenin:31 Abuse screen: Denies threats or abuse. Nutritional screening: No deficits noted. ap3 Tuberculosis screening: No symptoms or risk factors identified. 16:50 [facility] ED Fall Risk Assessment (Adult) History of falling in the last 3 months, ld1 including since admission No falls in past 3 months (0 pts). Assessment: 16:27 Reassessment: Pt still in CT - not in ER room at this moment. ld1 16:40 Reassessment: Pt arrived back from CT. ld1 16:50 General: Appears in no apparent distress. uncomfortable, Behavior is calm, ld1 inappropriate for age, quiet. Pain: Denies pain. Neuro: Level of Consciousness is awake, confused, Oriented to none. Neuro: Buffer Chrome are weak on left Weakness in left arm(s) leg(s) Gait is unsteady, Speech is slurred, Facial droop on left, Reports weakness in left arm and left leg. Cardiovascular: Capillary refill < 3 seconds Patient's skin is warm and dry. Rhythm is sinus rhythm. Respiratory: Airway is patent Respiratory effort is even, unlabored. GI: Abdomen is round obese. : No signs and/or symptoms were reported regarding the genitourinary system. EENT: No signs and/or symptoms were reported regarding the EENT system. Derm: No signs and/or symptoms reported regarding the dermatologic system. Musculoskeletal: No signs and/or symptoms reported regarding the musculoskeletal system. 16:54 Reassessment: Pt unable to complete swallow screen. Was not able to swallow water. ld1 Notified ERP. Vital Signs: 16:49 BP 146 / 92; Pulse 57; Resp 16; Temp 97.6(O); Pulse Ox 100% on R/A; ld1 16:49 Weight 116.57 kg; Height 5 ft. 6 in. ; Pain 0/10; ld1 17:17 BP 159 / 111; Pulse 56; Resp 18; Pulse Ox 100% on R/A; ld1 16:49 Body Mass Index 41.48 (116.57 kg, 167.64 cm) ld1 16:49 Pain Scale: Adult ld1 NIH Stroke Scale Scores: 16:44 NIHSS Score: 6 print journalist Course: 16:16 Patient arrived in ED. rn 16:16 Fitz Farley MD is Attending Physician. rn 16:18 Magalis Carnes, JOSEY is Primary Nurse. ko1 16:30 Triage completed. ap3 16:31 CT Stroke Brain w/o Contrast In Process Unspecified. EDMS 16:[address] In Process Unspecified. EDMS 16:[address] In Process Unspecified. EDMS 16:32 Patient has correct armband on for positive identification. Bed in low position. Call ap3 light in reach. Side rails up X2. 16:50 monitoring coordinator on. Pulse ox on. NIBP on. Door closed. Noise minimized. Warm blanket ld1 given. 16:56 Stroke CXR 1 View In Process Unspecified. EDMS 17:21 No provider procedures requiring assistance completed. Patient transferred, IV remains ld1 in place. 17:22 Arm band placed on right wrist. ld1 Administered Medications: 16:40 Drug: foLIC Acid IVPB 1 mg Route: IVPB; Site: left antecubital; ld1 16:40 Drug: Aspirin PO Chewable Tablet 324 mg Route: PO; ld1 Medication: 16:50 VIS not applicable for this client. ld1 Outcome: 16:38 ER care complete, transfer ordered by MD. muller 17:21 Transferred by helicopter to [facility]. ld1 17:21 Condition: unchanged 17:21 Instructed on the need for transfer. 17:22 Patient left the ED. ld1 NIH Stroke Scale - NIH Stroke Score Date: 02/10/2023 Time: 16:44 Total Score = 6 10. Dysarthria (speech clarity - read or repeat words) - 1(Mild to Moderate) 11. Extinction and Inattention (visual/tactile/auditory/spatial/personal) - 0(No abnormality) 1a. Level of Consciousness (LOC) - 0(Alert) 1b. Level of Consciousness (LOC) (Month \T\ Age) - 0(Both) 1c. LOC Commands (Open \T\ Closes Eyes/Transportation Associate) - 0(Both) 2. Best Gaze (Lateral Gaze Paresis) - 0(Normal) 3. Visual Field Loss - 0(No visual loss) 4. Facial Palsy - 2(Partial paralysis) 5a. Left Arm: Motor (10-second hold) - 1(Drift) 5b. Right Arm: Motor (10-second hold) - 0(No drift) 6a. Left Leg: Motor (5-second hold - always test supine) - 1(Drift) 6b. Right Leg: Motor (5-second hold - always test supine) - 0(No drift) 7. Limb Ataxia (finger/nose \T\ heel/dillon - test with eyes open) - 0(Absent) 8. Sensory Loss (pinprick arms/legs/face) - 1(Mild to moderate loss) 9. Best Language: Aphasia (description/naming/reading) - 0(No aphasia) Initials: rn Signatures: Dispatcher [employer] Fitz Ghtora MD MD rn Prokisch, Amanda, RN RN ap3 Mari Weeks RN RN ld1 Magalis Carnes RN RN ko1
--- NOTE | 2023-02-10 16:39 | EDPHYS ---
Physician Documentation [facility] Name: Kelle Calderón Age: 47 yrs Sex: Female : 1975 Arrival Date: 02/10/2023 Time: 16:11 Bed 7 Private MD: ED Physician Fitz Farley HPI: 02/10 16:17 This 47 yrs old Female presents to ER via Unassigned with complaints of rn Possible stroke. 16:17 Onset: The symptoms/episode began/occurred 30 minute(s) ago. Associated signs and rn symptoms: Pertinent positives: paresthesias, weakness, Pertinent negatives: fever, headache, neck stiffness, seizure. Severity of symptoms: At their worst the symptoms were moderate in the emergency department the symptoms are unchanged. Current symptoms: paralysis or paresis. The patient has experienced similar episodes in the past. Patient reports sudden onset of left facial droop and left-sided weakness and numbness that began approximately 30 minutes ago. Patient states multiple strokes in the past as well as peripheral vascular disease and takes Eliquis. Last stroke was in 2020 with similar left-sided symptoms. No seizure. No head injury.. Historical: - Allergies: 16:30 PENICILLINS; ap3 16:30 Plavix; ap3 16:30 Warfarin; ap3 - PMHx: 16:30 Asthma; bells palsy; blood clot; Chronic pain; CVA; Depression; Diabetes - NIDDM; GERD; ap3 Hyperlipidemia; Hypertension; Irritable bowel syndrome; Kidney stones; lymphedema; Migraines; Sleep Apnea; - Immunization history:: Adult Immunizations up to date. - Family history:: not pertinent. - Social history:: Smoking status: Patient denies any tobacco usage or history of. Patient/guardian denies using alcohol. - Hospitalizations: : No recent hospitalization is reported. ROS: 16:17 Constitutional: Negative for fever, chills, and weight loss, Neck: Negative for injury, rn pain, and swelling, Cardiovascular: Negative for chest pain, palpitations, and edema, Respiratory: Negative for shortness of breath, cough, wheezing, and pleuritic chest pain, Abdomen/GI: Negative for abdominal pain, nausea, vomiting, diarrhea, and constipation, Back: Negative for injury and pain, MS/Extremity: Negative for injury and deformity, Skin: Negative for injury, rash, and discoloration, Neuro: Negative for seizure Exam: 16:17 Constitutional: This is a well developed, well nourished patient who is awake, alert supervisor varnish: Regular rate and rhythm. No pulse deficits. Respiratory: No increased work of breathing, no retractions or nasal flaring. Abdomen/GI: Soft, non-tender Skin: Warm, dry MS/ Extremity: Pulses equal, no cyanosis. Neurovascular intact. Full, normal range of motion. Equal circumference. Neuro: Awake and alert, GCS 15, oriented to person, place, time, and situation. + left moderate facial droop, lower face worse than upper face. + left sided weakness with arm and leg drift, Leg weaker than arm. + decreased sensation to touch left arm and leg. 17:16 ECG was reviewed by the Attending Physician. rn Vital Signs: 16:49 BP 146 / 92; Pulse 57; Resp 16; Temp 97.6(O); Pulse Ox 100% on R/A; ld1 16:49 Weight 116.57 kg; Height 5 ft. 6 in. ; Pain 0/10; ld1 17:17 BP 159 / 111; Pulse 56; Resp 18; Pulse Ox 100% on R/A; ld1 16:49 Body Mass Index 41.48 (116.57 kg, 167.64 cm) ld1 16:49 Pain Scale: Adult ld1 NIH Stroke Scale Scores: 16:44 NIHSS Score: 6 rn MDM: 16:16 Patient medically screened. rn 16:27 Management of patient was discussed with the following: Preschool Teacher Aide: Dr. Dee, rn agrees that patient is on Eliquis and is contraindication to receiving tPA or TNK. Recommends transfer to [facility] for perfusion studies and neurological consultation given moderate stroke symptoms and only medical management available here at this facility.. ED course: Patient on Eliquis and contraindication to tPA or TNK.. 16:37 Data reviewed: vital signs, nurses notes, lab test result(s), radiologic studies, CT rn scan, and as a result, I will admit patient. Consideration of Admission/Observation Patient was admitted/placed on observation. Escalation of care including admission/observation considered. Counseling: I had a detailed discussion with the patient and/or guardian regarding the historical points, exam findings, and any diagnostic results supporting the discharge/admit diagnosis, lab results, radiology results, the need to transfer to another facility, for higher level of care. 16:38 Discussion of test interpretation with radiology: I had a discussion with echocardiography radiology technologist regarding a test interpretation. NO acute findings on CT head. . 16:45 ED course: SPoke with neuro at [facility], accepts for transfer, states CTA not necessary rn and wants us to call [facility] and transfer for emergent care/perfusion study/intervention if indicated. . 17:02 ED course: CT angio head and neck negative for LVO. [facility] on their way. Updated rn patient and .. 02/10 16:17 Order name: Basic Metabolic Panel rn 02/10 16:17 Order name: CBC with Diff; Complete Time: 17:17 02/10 16:17 Order name: High Sensitivity Troponin 02/10 16:17 Order name: Protime (+inr); Complete Time: 17:17 02/10 16:17 Order name: Ptt, Activated; Complete Time: 17:17 02/10 16:17 Order name: CT Stroke Brain w/o Contrast; Complete Time: 16:38 02/10 16:17 Order name: Stroke CXR 1 View rn 02/10 16:17 Order name: Head Angio CT; Complete Time: 17:02 02/10 16:17 Order name: Neck Angio CT; Complete Time: 17:02 02/10 16:17 Order name: EKG; Complete Time: 16:18 rn 02/10 16:17 Order name: Accucheck; Complete Time: 16:54 02/10 16:17 Order name: Cardiac monitoring; Complete Time: 16:54 02/10 16:17 Order name: EKG - Nurse/Tech; Complete Time: 17:01 rn 02/10 16:17 Order name: IV Saline Lock; Complete Time: 16:21 rn 02/10 16:17 Order name: Labs collected and sent; Complete Time: 16:54 rn 02/10 16:17 Order name: NPO; Complete Time: 16:21 rn 02/10 16:17 Order name: O2 Per Protocol; Complete Time: 16:20 rn 02/10 16:17 Order name: O2 Sat Monitoring; Complete Time: 16:20 rn 02/10 16:17 Order name: Stroke Swallow Screen; Complete Time: 16:54 rn EC:16 Rate is 55 beats/min. Rhythm is regular. QRS [place] is Normal. NM interval is normal. QRS rn interval is normal. QT interval is normal. No Q waves. T waves are Normal. No ST changes noted. Clinical impression: Sinus bradycardia. Interpreted by me. Reviewed by me. Administered Medications: 16:40 Drug: foLIC Acid IVPB 1 mg Route: IVPB; Site: left antecubital; ld1 16:40 Drug: Aspirin PO Chewable Tablet 324 mg Route: PO; ld1 Disposition Summary: 02/10/23 16:38 Transfer Ordered Transfer Location: [facility] rn Reason: Higher level of care rn Condition: Stable rn Problem: new rn Symptoms: are unchanged rn Accepting Physician: (02/10/23 17:22) ld1 Diagnosis - Cerebral infarction, unspecified rn - Weakness rn - Facial weakness rn - Slurred speech rn Forms: - Medication Reconciliation Form rn - SBAR form hospitality intern time excluding procedures: 16:45 Critical care time: Bedside Care: 30 minutes, Consultation: 5 minutes. Total time: 35 rn minutes NIH Stroke Scale - NIH Stroke Score Date: 02/10/2023 Time: 16:44 Total Score = 6 10. Dysarthria (speech clarity - read or repeat words) - 1(Mild to Moderate) 11. Extinction and Inattention (visual/tactile/auditory/spatial/personal) - 0(No abnormality) 1a. Level of Consciousness (LOC) - 0(Alert) 1b. Level of Consciousness (LOC) (Month \T\ Age) - 0(Both) 1c. LOC Commands (Open \T\ Closes Eyes/Model And Mold Maker) - 0(Both) 2. Best Gaze (Lateral Gaze Paresis) - 0(Normal) 3. Visual Field Loss - 0(No visual loss) 4. Facial Palsy - 2(Partial paralysis) 5a. Left Arm: Motor (10-second hold) - 1(Drift) 5b. Right Arm: Motor (10-second hold) - 0(No drift) 6a. Left Leg: Motor (5-second hold - always test supine) - 1(Drift) 6b. Right Leg: Motor (5-second hold - always test supine) - 0(No drift) 7. Limb Ataxia (finger/nose \T\ heel/dillon - test with eyes open) - 0(Absent) 8. Sensory Loss (pinprick arms/legs/face) - 1(Mild to moderate loss) 9. Best Language: Aphasia (description/naming/reading) - 0(No aphasia) Initials: rn Signatures: Dispatcher [employer] Fitz Ghotra MD MD rn Prokisch, Amanda, RN RN ap3 Mari Weeks RN RN ld1 Corrections: (The following items were deleted from the chart) 16:45 16:23 NIHSS Score: 6 rn renzo 17:22 16:38 Dr. muller ld1
--- NOTE | 2023-02-10 16:45 | RAD REPORT ---
EXAM DESCRIPTION: CT - Head angio - 02/10/2023 4:30 pm CLINICAL HISTORY: WEAKNESS COMPARISON: Ct Stroke Brain Wo Cont dated 02/10/2023; Head Brain Wo Cont dated 07/19/2022; Neck Angio d ated 02/10/2023 TECHNIQUE: Axial CT angiography images of the head was performed with multiplanar and maximum intens ity projection reconstructions. Images performed following intravenous administration of 100mL Isovue 370. All CT scans are performed using dose optimization technique as appropriate and may include automated exposure control or mA/KV adjustment according to patient size. FINDINGS: No evidence of large vessel occlusion. No evidence of aneurysm or dissection flap is detec octaviano. No flow-limiting stenosis or vascular malformation identified. Antegrade flow is seen in the vertebral arteries. The vertebral arteries are codominant. The visualized dural venous sinuses are grossly patent. IMPRESSION: No evidence of large vessel occlusion or flow-limiting stenosis.
--- NOTE | 2023-02-10 16:48 | RAD REPORT ---
EXAM DESCRIPTION: CT - Neck Angio - 02/10/2023 4:30 pm CLINICAL HISTORY: weakness COMPARISON: Neck Angio dated 06/13/2018; SOFT TISSUE NECK W CONTRAST dated 07/11/2012; Head angio dated 02/10/2023; Ct Stroke Brain Wo Cont dated 02/10/2023 TECHNIQUE: Axial CT angiography images of the head was performed with multiplanar and maximum intens ity projection reconstructions. Images performed following intravenous administration of 100mL Isovue 370. All CT scans are performed using dose optimization technique as appropriate and may include automated exposure control or mA/KV adjustment according to patient size. Quantification of carotid stenosis, if any, is performed according to NASCET criteria. FINDINGS: A left aortic arch is identified with normal three vessel configuration of the great vesse ls. No significant flow abnormality is seen of the common carotid bilaterally. No significant stenosis is identified involving the cervical segments of both internal carotid arteri es. Normal flow is seen within both vertebral arteries. IMPRESSION: No significant flow abnormality of the neck vessels is identified. CAROTID STENOSIS REFERENCE USING NASCET CRITERIA: % ICA stenosis = (1 - narrowest ICA diameter/diameter of distal cervical ICA) x 100. Mild - <50% stenosis. Moderate - 50-69% stenosis. Severe - 70-94% stenosis. Near occlusion - 95-99% stenosis. Occluded - 100% stenosis.
--- OUTSIDE RECORDS SUMMARY | 2023-02-10 16:48 | XMS REPORT | Continuity of Care Document ---
:1975 Author Organization [facility] t Address [address] [facility] [address] [place] [address] Support Name Relationship Address Phone Lev Calderón Spouse [address] [place] [address] Lindsey Tijerina Mother [address] [place] [address] Solis Calderón, Lev Spouse [address] [phone] [place] [address] CALDERÓNLEV CLEMENTS Unavailable [address] [phone] [place] [address] NONE, OTHER Unavailable [address] [phone] [place] [address] LEV CALDERÓN X [address] [place] [address] Josep Calderón Lev Naturalson [address] [place] [address] CalderónLev clements Spouse [address] [place] [address] Joycelyn, Brittine Daughter [address] [phone] [place] [address] UNK, UNK Unavailable . [phone] [place] [address] LEV CALDERÓN SPOU [address] [phone] [place] [address] LINDSEY TIJERINA M [address] [place] [address] LEV CALDERÓN X [address] [place] [address] Solis Calderón, Lev Spouse [address] [phone] [place] [address] LEV CALDERÓN X [address] [facility] [place] [address] Lev Laird Spouse [address] [place] [address] Care Team Providers Name Role Phone LUCIAN CRESPO Noel Primary Care Physician Unavailable HERLINDA NELSON Attending Clinician Unavailable LEANNE MCNULTY Attending Clinician Unavailable MINI ALVES Attending Clinician Unavailable EDDIE BOYER Attending Clinician Unavailable EDDIE BOYER Attending Clinician Unavailable SHERRIE MACARIO Attending Clinician Unavailable SHERRIE MACARIO Attending Clinician Unavailable MICHAEL HUGGINS Attending Clinician Unavailable Mini Alves MD Attending Clinician [phone] Leanne Ang Attending Clinician Doctor Unassigned, [place] Attending Clinician Unavailable Virginia Morgan MD Attending Clinician Clinic, Speech Voice/Swallow Attending Clinician Unavailable VIRGINIA MORGAN Attending Clinician Unavailable AGUSTO WALLACE Attending Clinician Unavailable Pob, Adc Lab Main Attending Clinician Unavailable Alisa Malone MD Attending Clinician ALISA MALONE Attending Clinician Unavailable Chang Yee MD Attending Clinician Luiz Albarado RN Attending Clinician Unavailable Diana Ge Attending Clinician Anju Pereira Attending Clinician Eddie Boyer MD Attending Clinician ANJU IRWIN Attending Clinician Unavailable SEGUNDO MICHAUD Attending Clinician Unavailable Segundo Michaud PA-C Attending Clinician Swallows, Gal Speech Modified Barium Attending Clinician Debbi ian Nevarez PhD, Alexandra Perez Attending Clinician Herlinda Reinoso Attending Clinician Lab, Ang - Db Attending Clinician Unavailable DIANA HOPKINS Attending Clinician Unavailable JOLANTA CORONEL K.HDary Attending Clinician Unavailable Manpreet Judd MD Attending Clinician MANPREET JUDD Attending Clinician Unavailable EKATERINA SANFORD Attending Clinician Unavailable Joaquina GARCIA, Danitza Attending Clinician Gianna Sousa MA Attending Clinician Unavailable Chandler Joshi MD Attending Clinician SAKINA FIORE Attending Clinician Unavailable Sakina Dobbs Attending Clinician DANITZA CONONRS Attending Clinician Unavailable NurseMitul Attending Clinician Unavailable Lucian Crespo MD Attending Clinician Albert Espana Attending Clinician Only, Adc Test Attending Clinician Unavailable LESLY BREEN Attending Clinician Unavailable ALICE AMEZQUITA Attending Clinician Unavailable Alice Amezquita MD Attending Clinician ROHIT JUARES Attending Clinician Unavailable ROHIT JUARES Attending Clinician Unavailable Umer GARCIA, Jolanta K.HDary Attending Clinician Draw, Clc-Bls Lab [...] Clinician Unavailable Alexandra Herrera MD Attending Clinician Nikita COLON, Randa K Attending Clinician Unavailable Nichole Hassan PT Attending Clinician Unavailable LUCIAN CRESPO Attending Clinician Unavailable Zan JACINTO Attending Clinician Unavailable Zan Nguyen Attending Clinician [...] Clinician Unavailable MICKEY RESTREPO Attending Clinician Unavailable MINI ALVES Admitting Clinician Unavailable MICHAEL HUGGINS Admitting Clinician Unavailable DIANA HOPKINS Admitting Clinician Unavailable ROHIT JUARES Admitting Clinician Unavailable SHEYLA RODRIGUEZ Admitting Clinician Unavailable UNDEFINED Admitting Clinician Unavailable Physician, No Primary or Family Admitting Clinician UnavailTRAVIS Aden Admitting Clinician Unavailable ALEXANDRA HERRERA Admitting Clinician Unavailable LEANNE MCNULTY Admitting Clinician Unavailable Zan JACINTO Admitting Clinician Unavailable INA AGUIRRE Admitting Clinician Unavailable Bryant Colby Admitting Clinician Unavailable SEBASTIEN HANSON Admitting Clinician Unavailable Giuliano Abdullahi Admitting Clinician Unavailable Rosalia Concepcion Admitting Clinician Unavailable MIKE LANDAVERDE Admitting Clinician Unavailable CLARY MONTEJO Admitting Clinician Unavailable RK TRENT Admitting Clinician Unavailable Candace Dhaliwal Admitting Clinician Unavailable TAVARES GODWIN Admitting Clinician Unavailable MAYRA CHEUNG Admitting Clinician Unavailable MICKEY RESTREPO Admitting Clinician Unavailable Payers Payer Name Policy Type Policy Number Effective Date Expiration Date S jael MED[place] [id number] 2021 00:00:00 [facility]/[facility] DUAL [id number] 2020 COMP HMO D SNP 00:00:00 [facility] STAR [id number] 2020 PLUS 00:00:00 WELLCARE DUAL [id number] 2022 ACCESS OPEN PPO 00:00:00 [place]ARE [place] PLUS [id number] 2021 CLASSIC NO 00:00:00 PREMIUM HMO MEDICARE PART A [id number] 2016 \\T\\ B 00:00:00 [facility] MEDICARE [id number] 2019 2019 COMPLETE CHOICE 00:00:00 00:00:00 Problems Condition Condition Condition Status Onset Resolution Last Treating Co mments Source Name Details Category Date Date Treatment Clinician Date Varicose Varicose Disease Active Overview: Un miki veins of veins of 4-20 Formattin ity of both lower both lower 00:00: g of this [place] extremitie extremitie 00 note Me dical s with s with might be Branch pain pain different from the original. Added automatic ally from request for surgery [id number] B12 B12 Disease Active Univers deficiency deficiency [...] l l Branch Therapeuti Therapeuti Disease Active 2023-0 U nivers c drug c drug 4-17 ity of monitoring [place] Vitamin D Vitamin D Disease Active Uni vers deficiency deficiency 4-17 it y of 00:00: [place] [facility] Paresthesi Paresthesi Disease Active 2022- U nivers a of a of 4-17 [place] of bilateral bilateral [place] Ulcerative Ulcerative Disease Active 2022- U nivers esophagiti esophagiti 2-08 it y of s s 00:00: [place] [facility] Nausea Nausea Disease Active Univers 2-08 ity of 00:00: [place] [facility] Sore Sore Disease Active 2022- Univers throat throat 2-08 ity of 00:00: [place] [facility] Follow-up Follow-up Disease Active Uni vers examinatio examinatio 2-08 it y of n n 00:00: [place] [facility] Branch Pleurisy Pleurisy Disease Active 2021-06 Unive rs 2-05 ity of 00:00: [place] [facility] Branch Lymphadeno Lymphadeno Disease Active 2021-06 U nivers nu nu 2-05 ity of 00:00: [place] [facility] Oropharyng Oropharyng Disease Active 2021- U nivers eal eal 2-05 ity of dysphagia dysphagia 00:[place] Esophageal Esophageal Disease Active U nivers dysphagia dysphagia 9-28 ity of 00:00: [place] [facility] Epigastric Epigastric Disease Active 2021- U nivers pain pain 9-28 ity of 00:00: [place] [facility] Branch H/O H/O Disease Active Univers gastric gastric 9-28 ity of sleeve sleeve 00:00: [place] [facility] Encounter Encounter Disease Active Uni vers to to 9-28 ity of establish establish 00:[place] [facility] [place] Leg Leg Disease Active Univers weakness, weakness, 6-29 ity of bilateral bilateral 00:00[place] Decreased Decreased Disease Active Uni vers activity activity 6-29 ity of tolerance tolerance 00:00[place] [facility] [place] Sacroiliac Sacroiliac Disease Active U nivers dysfunctio dysfunctio 6-29 it y of n n 00:00: [place] [facility] Chronic Chronic Disease Active Univers [...] cular 6-18 ity of accident accident 00:00: [place] (CVA), (CVA), 00 Medical unspecifie unspecifie Br anch d d mechanism mechanism Left arm Left arm Disease Active Unive rs weakness weakness 6-10 ity of 00:00: [place] 00 Medical Branch Left arm Left arm Disease Active Unive rs weakness weakness 6-10 ity of 00:00: [place] 00 Medical Branch 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 strength 00:00: [place] of left of left 00 Medical hand hand Branch Decreased Decreased Disease Active Uni vers activities activities 6-10 it y of of daily of daily 00:00: [place] living living 00 Medical (ADL) (ADL) Branch Blurry Blurry Disease Active Univers vision, vision, 3-26 ity of right eye right eye 00:00: [facility] 00 Medical Branch Cellulitis Cellulitis Disease Active U nivers 3-25 ity of 00:00: [place] [facility] Rhinovirus Rhinovirus Disease Active U nivers infection infection 3-18 ity of 00:00: [place] [facility] Lymphedema Lymphedema Disease Active U nivers 3-17 ity of 00:00: [place] [facility] Hyperlipid Hyperlipid Disease Active U nivers emia emia 3-17 ity of 00:00: [place] 00 Medical Branch Major Major Disease Active Univers depressive depressive 3-17 it y of disorder disorder 00:00: [place] [facility] Cranial Cranial Disease Active Univers nerve VII nerve VII 2-12 ity of palsy palsy 00:00: [place] 00 Medical Branch Facial Facial Disease Active Univers weakness weakness 2-10 ity of 00:00: [place] [facility] Bradycardi Bradycardi Disease Active U nivers a, sinus a, sinus 9-11 ity of 00:00: [place] 00 Medical Branch Essential Essential Disease Active Uni vers hypertensi hypertensi 9-11 it y of on on 00:00: [place] [facility] JUDITH JUDITH Disease Active Univers (obstructi (obstructi 9-11 it y of ve sleep ve sleep 00:00: [place] apnea) apnea) 00 Medical Branch Atypical Atypical Disease Active Unive rs chest pain chest pain 9-11 it y of 00:00: [place] [facility] Type 2 Type 2 Disease Active Univers diabetes diabetes 9-11 ity of mellitus mellitus 00:00: [place] with other with other 00 Me dical specified specified Bran ch complicati complicati on, on, without without long-term long-term current current use of use of insulin insulin COVID-19 COVID-19 Disease Active Unive rs virus virus 9 ity of detected detected 00:00: [place] 00 Medical Branch Pneumonia Pneumonia Disease Active Uni vers due to due to 02-18 ity of COVID-19 COVID-19 00:00: [place] virus virus 00 Medical Branch Lower Lower Disease Active Univers respirator respirator 9-07 it y of y tract y tract 00:00: [place] infection infection 00 Medi diane due to due to Branch COVID-19 COVID-19 virus virus Morbid Morbid Disease Active Univers obesity obesity 9-07 ity of with body with body 00:00[place] mass index mass index 00 Me [...] 09-04 07:13:00 l 09/04/2018 00:00: Edmund jacobson [address] Cough Cough Disease [facility] 00 [place] Generalize Generalize Disease Active [facility] d headache d headache 3-11 Erik kes 00:00: Medical 00 [place] STROKE STROKE Diagnosis Active 2018-06-13 [place] moria Active 06-13 04:41:00 l 06/13/2018 00:00: Edmund jacobson [address] ACUTE ACUTE Diagnosis Active 2018-06-22 [facility] oria CEREBROVAS CEREBROVAS 06-13 22:17:00 l CULAR CULAR 00:00: [place] ACCIDENT ACCIDENT 00 Active 06/13/2018 [facility] Status Status Disease Active [facility] administra administra 00:00: Me dical tion of tion of 00 Center tPA (rtPA) tPA (rtPA) in a in a different different facility facility within the within the last 24 last 24 hours hours prior to prior to admission admission to current to current facility facility Left-sided Left-sided Disease Active [facility] weakness weakness 12-08 [facility] 00:[facility]: Medical 00 [place] Status Status Disease Active [facility] administra administra 00:00: Me dical tion of tion of 00 Center tPA (rtPA) tPA (rtPA) in a in a different different facility facility within the within the last 24 last 24 hours hours prior to prior to admission admission to current to current facility facility Acute Acute Disease Recurre [facility] ischemic ischemic nce 12[facility]07 [facility] stroke stroke 00:00: Medical 00 [place] 3RD REPUBLICAN 3RD REPUBLICAN Diagnosis Active 2017-12-07 Memoria Active 12-07 23:11:00 l 12/07/2017 00:00: Edmund jacobson [address] Headache, Headache, Disease Active 2016-[address] [facility] acute acute 1-20 [facility] 00:00: Medical 00 [place] 3RD REPUBLICAN 3RD REPUBLICAN Diagnosis Active 2016-062017-04-06 [facility] FLIGHT FLIGHT 23:56:00 l Active 00:00: Lynne 04/06/2017 00 [facility] CVA CVA Disease Recurre 2015-06 [facility] [...] right right 6-25 ity of 00:00: [place] [facility] Knee pain, Knee pain, Disease Active U nivers right right 6-25 ity of 00:00: [place] [facility] Asthma Asthma Disease Active Univers - ity of 00:00: [place] 00 Medical Branch [...] ans Body mass Body mass Problem 2019-01-02 [facility] index index 13:50:12 l (BMI) (BMI) [place] 60.0-69.9, 60.0-69.9, adult adult 01/02/2019 [facility] Encephalop Encephalo Problem 2019-01-02 nu Bird, 13:50:12 l unspecifie unspecifie He rmann d d 01/02/2019 [facility] Essential Problem 2019-01-02 Me moria (primary) Essential 13:50:12 l hypertensi (primary) Her espino on hypertensi on 01/02/2019 [facility] Morbid Morbid Problem 2019-01-02 Jose G lópez (severe) (severe) 13:50:12 l obesity obesity [place] due to due to excess excess calories calories 01/02/2019 [facility] Type 2 Type 2 Problem 2019-01-02 Jose G rene diabetes diabetes 13:50:12 l mellitus mellitus Edmund n with with hyperglyce hyperglyce gloria gloria 01/02/2019 [facility] Difficulty Difficult Problem 2019-01-02 Memoria in y in 13:50:12 l walking, walking, Edmund n not not elsewhere elsewhere classified classified 9 [facility] Naranjo's Naranjo's Problem 2019-01-02 Jose G rene palsy palsy 13:50:12 l 01/02/2019 Edmund n [facility] Encounter Encounter Problem 2019-01-02 Memoria for for 13:50:12 l immunizati immunizati He rmann on on 01/02/2019 [facility] Migraine, Migraine, Problem 2019-01-02 Memoria unspecifie unspecifie 13:50:12 l d, not d, not Lynne intractabl intractabl e, without e, without status status migrainosu migrainosu s s 01/02/2019 [facility] Status Status Problem 2019-01-02 Jose G rene post post 13:50:12 l administra administra He rmann tion of tion of tPA (rtPA) tPA (rtPA) in a in a different different facility facility within the within the last 24 last 24 hours hours prior to prior to admission admission to current to current facility facility 01/02/2019 [facility] 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 Memoria (current) (current) 13:50:12 l use of use of Lynne insulin insulin 01/02/2019 [facility] Family Family Problem 2019-01-02 Jose G rene history of history of 13:50:12 l diabetes diabetes Edmund n mellitus mellitus 01/02/2019 [facility] Disease of Disease Problem Active 2019-01-02 Memoria cardiovasc of 13:50:12 l ular cardiovasc Edmund jacobson system ular (disorder) system (disorder) Active Problem 01/02/2019 right leg [facility] Diabetes Diabetes Problem Active 2019-01-02 Memoria mellitus mellitus 13:50:12 l (disorder) (disorder) He rmann Active Problem 01/02/2019 [facility] Heartburn Heartburn Problem Active 2019-01-02 Memoria (finding) (finding) 13:50:12 l Active Lynne Problem 01/02/2019 [facility] ILLNESS, ILLNESS, Diagnosis Active 2018-06-13 Memoria UNSPECIFIE UNSPECIFIE 04:41:00 l D D Active Lynne [facility] CEREBRAL CEREBRAL Diagnosis Active 2018-06-22 Memoria INFARCTION INFARCTION 22:17:00 l , , Lynne UNSPECIFIE UNSPECIFIE D D Active [facility] Illness, Illness, Problem 2019-01-02 Memoria unspecifie unspecifie 13:50:12 l d d Lynne 01/02/2019 [facility] Acute Acute Problem 2019-01-02 Memor ia respirator respirator 13:50:12 l y failure y failure Herm mio with with hypoxia hypoxia 01/02/2019 [facility] Hemiplegia Hemiplegi Problem 2019-01-02 Memoria and a and 13:50:12 l hemiparesi hemiparesi He rmann s s following following cerebral cerebral infarction infarction affecting affecting left left non-domina non-domina nt side nt side 01/02/2019 [facility] History of Past Illness Condition Condition Condition Status Onset Resolution Last Treating Co mments Source Name Details Category Date Date Treatment Clinician Date Cerebral Cerebral Problem 2018-2019-01-02 2019-01-02 Memoria infarction infarction 1-11 13:50:12 13:50:12 l , , 05:33: [place] unspecifie unspecifie 29 d d 06/23/2018 01/02/2019 [facility] Allergies, Adverse Reactions, Alerts Allergy Allergy Status Severity Reaction(s) Onset Inactive Treating Comm ents Source Name Type Date Date Clinician amoxicil DA Active SV 2020-0 [facility] [place] [facility] amoxicil DA Active SV rash 2020-0 [facility] [place] [facility] Penicill DA Active U 2020-1 [facility] ins 07[facility]02 [place] [facility] warfarin DA Active U 2020-1 [facility] 07[facility]02 [place] [facility] clopidog DA Active U 2020-1 [facility] rel 07-02 [place] 00:[facility]: [facility] Penicill DA Active U UNKNOWN 2020-1 [facility] ins 07-02 [place] 00:[facility]: [facility] warfarin DA Active U UNKNOWN 2020-1 [facility] 07-02 [place] 00:[facility]: [facility] 00 are [facility] clopidog DA Active U UNKNOWN 2020- [facility] rel 07-02 [place] 00:00: Health 00 are [facility] AMOXICIL DRUG Active Rash 2018-06 Univers [...] [facility] rel Intolera Comments) 3-11 heartrate Erik kes nce 00:00: Medical 00 Center Warfarin Propensi Active Nausea And 2015-[address] [facility] to [facility]iting [facility]- [facility] adverse 00:00: Medical reaction 00 [place] s orphenad drug [facility] Active [facility] warfarin warfarin Active Memori a l Lynne Plavix Plavix Active Memoria l Lynne CLOPIDOG Allergy Active [facility] WARFARIN Allergy Active [facility] Family History Family Member Diagnosis Comments Start Date Stop Date Source Natural mother Diabetes [facility] Natural mother Hypertension [facility] Social History Social Habit Start Date Stop Date Quantity Comments Source History of tobacco Current smoker Un iversity of use [facility] Gender identity Universit y of [facility] Sexual orientation Univer sity of [facility] Exposure to 2022-10-23 2022-11-02 Not sure University of SARS-CoV-2 (event) 00:00:00 04:55:00 [facility] History of Social 2022-10-25 2022-10-25 Univers ity of function 00:00:00 00:00:00 [facility] Tobacco use and 2022-01-04 2022-01-04 Smokeless Universit y of exposure 00:00:00 00:00:00 tobacco non-user [place] Me dical Branch History SDNJ 2020-02-18 2020-02-18 5 University o f Financial 00:00:00 00:00:00 [place] [facility] History SDN[place] Food 2020-02-18 2020-02-18 1 Univers ity of Worry 00:00:00 00:00:00 [place] [facility] History SDNJ Food 2020-02-18 2020-02-18 1 Univers ity of Scarcity 00:00:00 00:00:00 [place] [facility] History SDNJ 2020-02-18 2020-02-18 2 University o f Transport Med 00:00:00 00:00:00 [place] Medic al Branch History [facility] 2020-02-18 2020-02-18 2 University o f Transport Non-Med 00:00:00 00:00:00 [place] M edical Branch Alcohol intake 2018-08-21 2018-08-[address] [facility] es 00:00:00 00:00:00 non-drinker of Medical Ce nter alcohol (finding) Cigarettes smoked 2016-06-07 2016-06-[address] [facility] current (pack per 00:00:00 00:00:00 [facility] day) - Reported Cigarette 2016-06-07 2016-06-[address] [facility] pack-years 00:00:00 00:00:00 [facility] Social History 2015-01-10 2015-01-[address] [facility] 21:45:28 21:45:28 Sex Assigned At [address] Erik kes 00:00:00 00:00:00 [facility] Smoking Status Start Date Stop Date Source Ex-smoker 2022-01-04 00:00:00 2022-01-04 00:00:00 [facility] Medications Ordered Filled Start Stop Current Ordering Indication Dosage Frequency Signature Comments Components Source Medication Medication Date Date Medication? Clinician (SIG) Name Name sucralfate Yes 1g Take 1 Unive rs 1 gram 8-04 tablet by ity of tablet 00:00: mouth at [place] 00 bedtime. Medical Branch sucralfate Yes 1g Take 1 Unive rs 1 gram 8-04 tablet by ity of tablet 00:00: mouth at [place] 00 bedtime. Medical Branch sucralfate 2023-0 Yes 1g Take 1 Unive rs 1 gram 8-04 tablet by ity of tablet 00:00: mouth at [place] 00 bedtime. Medical Branch sucralfate 2022-0 Yes 1g Take 1 Unive rs 1 gram 8-04 tablet by ity of tablet 00:00: mouth at [place] 00 bedtime. Medical Branch famotidine 2022-0 Yes 1 TABLETBY U nivers 40 mg 7-25 MOUTH ity of tablet 00:00: EVERY EVENING Medical ORAL Branch famotidine 2022-0 Yes 1 TABLETBY U nivers 40 mg 7-25 MOUTH ity of tablet 00:00: EVERY EVENING Medical ORAL Branch famotidine 2022-0 Yes 1 TABLETBY U nivers 40 mg 7-25 MOUTH ity of tablet 00:00: EVERY EVENING Medical ORAL Branch famotidine 2022-0 Yes 1 TABLETBY U nivers 40 mg 7-25 MOUTH ity of tablet 00:00: EVERY 00 EVENING Medical ORAL Branch furosemide 2022-0 Yes [id number] 20mg Take 1 Univers (LASIX) 20 7-18 tablet by ity of mg tablet 00:00: mouth [place] 00 every Medical morning as Branch needed for Other (leg swelling). furosemide 2022-0 Yes [id number] 20mg Take 1 Univers (LASIX) 20 7-18 tablet by ity of mg tablet 00:00: mouth [place] 00 every Medical morning as Branch needed for Other (leg swelling). furosemide 2022-0 Yes [id number] 20mg Take 1 Univers (LASIX) 20 7-18 tablet by ity of mg tablet 00:00: mouth [place] 00 every Medical morning as Branch needed for Other (leg swelling). furosemide 2022-0 Yes [id number] 20mg Take 1 Univers (LASIX) 20 7-18 tablet by ity of mg tablet 00:00: mouth [place] 00 every Medical morning as Branch needed for Other (leg swelling). furosemide 2022-0 Yes [id number] 20mg Take 1 Univers (LASIX) 20 7-18 tablet by ity of mg tablet 00:00: mouth [place] 00 every Medical morning as Branch needed for Other (leg swelling). furosemide 2022-0 Yes [id number] 20mg Take 1 Univers (LASIX) 20 7-18 tablet by ity of mg tablet 00:00: mouth [place] 00 every Medical morning as Branch needed for Other (leg swelling). furosemide 2023-0 Yes [id number] 20mg Take 1 Univers (LASIX) 20 7-18 tablet by ity of mg tablet 00:00: mouth [place] 00 every Medical morning as Branch needed for Other (leg swelling). furosemide 202-0 Yes [id number] 20mg Take 1 Univers (LASIX) 20 7-18 tablet by ity of mg tablet 00:00: mouth [place] 00 every Medical morning as Branch needed for Other (leg swelling). furosemide 2022-0 Yes [id number] 20mg Take 1 Univers (LASIX) 20 7-18 tablet by ity of mg tablet 00:00: mouth [place] 00 every Medical morning as Branch needed for Other (leg swelling). furosemide 202-0 Yes [id number] 20mg Take 1 [facility] (LASIX) 20 7-18 tablet by ity of mg tablet 00:00: mouth [place] 00 every Medical morning as Branch needed for Other (leg swelling). furosemide 2022-0 Yes [id number] 20mg Take 1 [facility] (LASIX) 20 7-18 tablet by ity of mg tablet 00:00: mouth [place] 00 every Medical morning as Branch needed for Other (leg swelling). multivit-mi 0 Yes 1{tbl} Take 1 [facility] n/iron/foli 5-23 tablet by ity of c acid/K 15:13: mouth in [place] (BARIATRIC 07 the Medical MULTIVITAMI morning. Bran ch NS ORAL) multivit-mi 0 Yes 1{tbl} Take 1 [facility] n/iron/foli 5-23 tablet by ity of c acid/K 15:13: mouth in [place] (BARIATRIC 07 the Medical MULTIVITAMI morning. Bran ch NS ORAL) multivit-mi 0 Yes 1{tbl} Take 1 [facility] n/iron/foli 5-23 tablet by ity of c acid/K 15:13: mouth in [place] (BARIATRIC 07 the Medical MULTIVITAMI morning. Bran ch NS ORAL) multivit-mi 2022-0 Yes 1{tbl} Take 1 [facility] n/iron/foli 5-23 tablet by ity of c acid/K 15:13: mouth in [place] (BARIATRIC 07 the Medical MULTIVITAMI morning. Bran ch NS ORAL) multivit-mi 2022-0 Yes 1{tbl} Take 1 [facility] n/iron/foli 5-23 tablet by ity of c acid/K 15:13: mouth in [place] (BARIATRIC 07 the Medical MULTIVITAMI morning. Bran ch NS ORAL) multivit-mi 0 Yes 1{tbl} Take 1 [facility] n/iron/foli 5-23 tablet by ity of c acid/K 15:13: mouth in [place] (BARIATRIC 07 the Medical MULTIVITAMI morning. Bran ch NS ORAL) multivit-mi 0 Yes 1{tbl} Take 1 [facility] n/iron/foli 5-23 tablet by ity of c acid/K 15:13: mouth in [place] (BARIATRIC 07 the Medical MULTIVITAMI morning. Bran ch NS ORAL) multivit-mi 0 Yes 1{tbl} Take 1 [facility] n/iron/foli 5-23 tablet by ity of c acid/K 15:13: mouth in [place] (BARIATRIC 07 the Medical MULTIVITAMI morning. Bran ch NS ORAL) multivit-mi 0 Yes 1{tbl} Take 1 [facility] n/iron/foli 5-23 tablet by ity of c acid/K 15:13: mouth in [place] (BARIATRIC 07 the Medical MULTIVITAMI morning. Bran ch NS ORAL) multivit-mi 0 Yes 1{tbl} Take 1 [facility] n/iron/foli 5-23 tablet by ity of c acid/K 15:13: mouth in [place] (BARIATRIC 07 the Medical MULTIVITAMI morning. Bran ch NS ORAL) multivit-mi 0 Yes 1{tbl} Take 1 [facility] n/iron/foli 5-23 tablet by ity of c acid/K 15:13: mouth in [place] (BARIATRIC 07 the Medical MULTIVITAMI morning. Bran ch NS ORAL) multivit-mi 0 Yes 1{tbl} Take 1 [facility] n/iron/foli 5-23 tablet by ity of c acid/K 15:13: mouth in [place] (BARIATRIC 07 the Medical MULTIVITAMI morning. Bran ch NS ORAL) multivit-mi 0 Yes 1{tbl} Take 1 [facility] n/iron/foli 5-23 tablet by ity of c acid/K 15:13: mouth in [place] (BARIATRIC 07 the Medical MULTIVITAMI morning. Bran ch NS ORAL) multivit-mi Yes 1{tbl} Take 1 [facility] n/iron/foli 5-23 tablet by ity of c acid/K 15:13: mouth in [place] (BARIATRIC the Medical MULTIVITAMI morning. Bran ch NS ORAL) multivit-mi Yes 1{tbl} Take 1 [facility] n/iron/foli 5-23 tablet by ity of c acid/K 15:13: mouth in [place] (BARIATRIC the Medical MULTIVITAMI morning. Bran ch NS ORAL) ketorolac 2022- No 30mg 30 mg, Unive rs (TORADOL) 11-02 Slow IV ity of injection 15:00: 14:37 Push[place] ONCE [place] 30 mg 00 :00 NOW, 1 Medical dose, On Branch Tue11/02/22 at 1000, CADEN HYDROcodone 2022- No 1{tbl} 1 tablet, Univers -acetaminop 11-02 Oral, ity of hen (NORCO 14:15: 14:37 ONCE, 1 [place] 5) 5-325 mg 00 :00 dose, On Medi diane tablet 1 Tue Branch tablet 11/02/22 at 0915, CADEN FENTanyl PF 2022- No 50ug 50 mcg, Un m[facility] (SUBLIMAZE 11-02 Slow IV ity o f (PF)) 12:30: 11:33 Push, [place] injection 00 :00 ONCE, 1 Medical 50 mcg dose, On Branch Tue11/02/22 at 0730, Routine apixaban 2022-0 2022- No 1447 Take 2 Un[facility] s (ELIQUIS) 5 11-02-22 tablets by i ty of mg tablet 00:00: 04:59 [place] :[place] (two) Medical times Branch daily for 7 days, THEN 1 tablet 2 (two) times daily for 83 days. Indication s: obstructio n of a blood vessel by a blood clot apixaban 2022-0 2022- No 1447 Take 2 [facility] (ELIQUIS) 5 - 08-22 tablets by i ty of mg tablet 00:00: 04:59 [place] 00 :[place] (two) Medical times Branch daily for 7 days, THEN 1 tablet 2 (two) times daily for 83 days. Indication s: obstructio n of a blood vessel by a blood clot apixaban 2023-0 2022- No 1447 Take 2 [facility] (ELIQUIS) 5 5-23 08-22 tablets by i ty of mg tablet 00:00: 04:59 mouth [place] 00 :00 (two) Medical times Branch daily for 7 days, THEN 1 tablet 2 (two) times daily for 83 days. Indication s: obstructio n of a blood vessel by a blood clot apixaban 2023-0 2022- No 1447 Take 2 [facility] (ELIQUIS) 5 5-23 08-22 tablets by i ty of mg tablet 00:00: 04:59 mouth [place] 00 :00 (two) Medical times Branch daily for 7 days, THEN 1 tablet 2 (two) times daily for 83 days. Indication s: obstructio n of a blood vessel by a blood clot apixaban 3-0 2022- No 1447 Take 2 [facility] (ELIQUIS) 5 - 08-22 tablets by i ty of mg tablet 00:00: 04:59 mouth [place] 00 :00 (two) Medical times Branch daily for 7 days, THEN 1 tablet 2 (two) times daily for 83 days. Indication s: obstructio n of a blood vessel by a blood clot apixaban 3-0 3- No 1447 Take 2 [facility] (ELIQUIS) 5 5-23 08-22 tablets by i ty of mg tablet 00:00: 04:59 mouth [place] 00 :00 (two) Medical times Branch daily for 7 days, THEN 1 tablet 2 (two) times daily for 83 days. Indication s: obstructio n of a blood vessel by a blood clot apixaban 2023-0 3- No 1447 Take 2 [facility] (ELIQUIS) 5 5-23 08-22 tablets by i ty of mg tablet 00:00: 04:59 mouth [place] 00 :00 (two) Medical times Branch daily for 7 days, THEN 1 tablet 2 (two) times daily for 83 days. Indication s: obstructio n of a blood vessel by a blood clot apixaban 2023-0 2023- No 1447 Take 2 [facility] (ELIQUIS) 5 - 08-22 tablets by i ty of mg tablet 00:00: 04:59 mouth [place] 00 :00 (two) Medical times Branch daily for 7 days, THEN 1 tablet 2 (two) times daily for 83 days. Indication s: obstructio n of a blood vessel by a blood clot apixaban 2022-0 2022- No 1447 Take 2 [facility] (ELIQUIS) 5 - 08-22 tablets by i ty of mg tablet 00:00: 04:59 mouth [place] 00 :00 (two) Medical times Branch daily for 7 days, THEN 1 tablet 2 (two) times daily for 83 days. Indication s: obstructio n of a blood vessel by a blood clot apixaban 2022-0 2022- No 1447 Take 2 [facility] (ELIQUIS) 5 - 08-22 tablets by i ty of mg tablet 00:00: 04:59 mouth [place] 00 :00 (two) Medical times Branch daily for 7 days, THEN 1 tablet 2 (two) times daily for 83 days. Indication s: obstructio n of a blood vessel by a blood clot apixaban 2022-0 2022- No 1447 Take 2 [facility] (ELIQUIS) 5 -02 02-22 tablets by i ty of mg tablet 00:00: 04:59 mouth [place] 00 :00 (two) Medical times Branch daily for 7 days, THEN 1 tablet 2 (two) times daily for 83 days. Indication s: obstructio n of a blood vessel by a blood clot apixaban 3-0 2022- No 1447 Take 2 [facility] (ELIQUIS) 5 11-02 08-22 tablets by i ty of mg tablet 00:00: 04:59 mouth [place] 00 :00 (two) Medical times Branch daily for 7 days, THEN 1 tablet 2 (two) times daily for 83 days. Indication s: obstructio n of a blood vessel by a blood clot apixaban 3-0 2022- No 1447 Take 2 [facility] (ELIQUIS) 5 5-23 08-22 tablets by i ty of mg tablet 00:00: 04:59 mouth [place] 00 :00 (two) Medical times Branch daily for 7 days, THEN 1 tablet 2 (two) times daily for 83 days. Indication s: obstructio n of a blood vessel by a blood clot apixaban 2022- No 1447 Take 2 [facility] (ELIQUIS) 5 11-02 08-22 tablets by i ty of mg tablet 00:00: 04:59 mouth [place] 00 :00 (two) Medical times Branch daily for 7 days, THEN 1 tablet 2 (two) times daily for 83 days. Indication s: obstructio n of a blood vessel by a blood clot HYDROcodone 2022- No 1{tbl} 1 tablet, [facility] -acetaminop 5-15 05-15 Oral, ity of hen (NORCO 18:15: 18:24 ONCE, 1 [place] 5) 5-325 mg 00 :00 dose, On Medi diane tablet 1 Tue Branch tablet 10/25/22 at 1315, Routine, PACU HYDROcodone 2022- No 1{tbl} 1 tablet, [facility] -acetaminop 5-15 05-15 Oral, ity of hen (NORCO 18:15: 18:24 ONCE, 1 [place] 5) 5-325 mg 00 :00 dose, On Medi diane tablet 1 Tue Branch tablet 10/25/22 at 1315, Routine, PACU FENTanyl PF Yes 25ug 25 mcg, Uni vers (SUBLIMAZE [...] Nausea and Vomiting (N/V), PACU FENTanyl PF 2022- No 25ug 25 mcg, Un miki (SUBLIMAZE 5-15 05-15 Slow IV ity o f (PF)) 18:03: 21:59 Push, [place] injection 17 :38 Q5MIN PRN, Medi diane 25 mcg 4 doses, Branch Starting on Tue10/25/22 at 1303, Until Tue10/25/22 at 1659, Routine, Pain (scale 4-6), PACU proMETHazin 2022- No 12.5mg 12.5 mg, Univers e 10-25 IV ity of (PHENERGAN) 18:03: 21:59 Piggyback, [place] 12.5 mg in 17 :38 at 200 Medical NS 50 mL IV mL/hr Branch piggyback Administer (CNR) over 15 Minutes, PRN, 1 dose, Starting on Tue10/25/22 at 1303, Until Tue10/25/22 at 1659, Routine, Nausea and Vomiting (N/V), PACU EPINEPHrine 2022- No PRN, Unive rs 1:1,000 (1 10-25 Starting ity of mg/mL) 16:01: 18:03 on Tue [place] (ADRENALIN) 00 :07 10/25/22 at Tx dical 2 mL, 1101, Branch lidocaine Intra-op 2% (XYLOCAINE) 40 mL, sodium bicarbonate 1 mEq/mL (8.4 %) 10 mL in NaCl 0.9% (NS) 1,000 mL OR irrigation heparin 2022- No PRN, [facility] 1,000 10-25 Starting ity of unit/mL 16:00: 18:03 on Tue [place] 5,000 Units 00 :07 10/25/22 at Tx dical in NaCl 1100, Branch 0.9% (NS) [...] 00 EVERY Medical OTHER Branch MONTH cyanocobala 2022-0 Yes INJECT 1 Un miki min 1,000 4-29 ML INTO ity of mcg/mL 00:00: THE MUSCLE [place] injection 00 EVERY Medical OTHER Branch MONTH cyanocobala 2022-0 Yes INJECT 1 [facility] min 1,000 4-29 ML INTO ity of mcg/mL 00:00: THE MUSCLE [place] injection 00 EVERY Medical OTHER Branch MONTH cyanocobala 2022-0 Yes INJECT 1 [facility] min 1,000 4-29 ML INTO ity of mcg/mL 00:00: THE MUSCLE [place] injection 00 EVERY Medical OTHER Branch MONTH cyanocobala 2022-0 Yes INJECT 1 [facility] min 1,000 4-29 ML INTO ity of mcg/mL 00:00: THE MUSCLE [place] injection 00 EVERY Medical OTHER Branch MONTH cyanocobala 2022-0 Yes INJECT 1 Un [facility] min 1,000 4-29 ML INTO ity of mcg/mL 00:00: THE MUSCLE [place] injection 00 EVERY Medical OTHER Branch MONTH cyanocobala 2022-0 Yes INJECT 1 [facility] min 1,000 4-29 ML INTO ity of mcg/mL 00:00: THE MUSCLE [place] injection 00 EVERY Medical OTHER Branch MONTH cyanocobala 2022-0 Yes INJECT 1 Un [facility] min 1,000 4-29 ML INTO ity of mcg/mL 00:00: THE MUSCLE [place] injection 00 EVERY Medical OTHER Branch MONTH cyanocobala 2022-0 Yes INJECT 1 Un [facility] min 1,000 4-29 ML INTO ity of mcg/mL 00:00: THE MUSCLE [place] injection 00 EVERY Medical OTHER Branch MONTH cyanocobala 2022-0 Yes INJECT 1 Un [facility] min 1,000 4-29 ML INTO ity of mcg/mL 00:00: THE MUSCLE [place] injection 00 EVERY Medical OTHER Branch MONTH cyanocobala 2022-0 Yes INJECT 1 [facility] min 1,000 4-29 ML INTO ity of mcg/mL 00:00: THE MUSCLE [place] injection 00 EVERY Medical OTHER Branch MONTH cyanocobala 2022-0 Yes INJECT 1 [facility] min 1,000 4-29 ML INTO ity of mcg/mL 00:00: THE MUSCLE [place] injection 00 EVERY Medical OTHER Branch MONTH cyanocobala 2022-0 Yes INJECT 1 [facility] min 1,000 4-29 ML INTO ity of mcg/mL 00:00: THE MUSCLE [place] injection 00 EVERY Medical OTHER Branch MONTH azithromyci 2022- No [id number] 250mg Take 1 [facility] n 250 mg 10-07 tablet by ity o f tablet 00:00: 04:59 mouth in [place] 00 :00 the Medical morning Branch for 6 days. Take 500 mg day 1, then 250 mg days 2 to 5. Dexlansopra 2022- No 60mg Take 1 Uni vers zole 60 mg 10-04 capsule by it y of capsule 10:32: 00:00 mouth. [place] 35 :00 Medical Branch bromphenira 2022- No [id number] 5mL Take 5 mL [facility] mine-pseudo -03 11-05 by mouth 4 i ty of ephedrine-D 00:00: 04:59 (four) [place] [facility] (BROMFED 00 :00 times Medical DM) 2-30-10 daily as Bran ch mg/5 mL needed for syrup Congestion /Allergies for up to 10 days. bromphenira 2022- No [id number] 5mL Take 5 mL [facility] mine-pseudo 10-04-05 by mouth 4 i ty of ephedrine-D 00:00: 04:59 (four) [place] (BROMFED 00 :00 times Medical DM) 2-30-10 daily as Bran ch mg/5 mL needed for syrup Congestion /Allergies for up to 10 days. bromphenira 2022-0 2022- No [id number] 5mL Take 5 mL [facility] mine-pseudo 10-04-05 by mouth 4 i ty of ephedrine-D 00:00: 04:59 (four) [place] (BROMFED 00 :00 times Medical DM) 2-30-10 daily as Bran ch mg/5 mL needed for syrup Congestion /Allergies for up to 10 days. bromphenira 0 2022- No [id number] 5mL Take 5 mL [facility] mine-pseudo 4-03 11-05 by mouth 4 i ty of ephedrine-D 00:00: 04:59 (four) [place] (BROMFED 00 :00 times Medical DM) 2-30-10 daily as Bran ch mg/5 mL needed for syrup Congestion /Allergies for up to 10 days. bromphenira 202-0 2022- No [id number] 5mL Take 5 mL [facility] mine-pseudo -05 by mouth 4 i ty of ephedrine-D 00:00: 04:59 (four) [place] (BROMFED 00 :00 times Medical DM) 2-30-10 daily as Bran ch mg/5 mL needed for syrup Congestion /Allergies for up to 10 days. bromphenira 2023-0 2022- No [id number] 5mL Take 5 mL [facility] mine-pseudo 4-05 by mouth 4 i ty of ephedrine-D 00:00: 04:59 (four) [place] (BROMFED 00 :00 times Medical DM) 2-30-10 daily as Bran ch mg/5 mL needed for syrup Congestion /Allergies for up to 10 days. bromphenira 2023-0 2022- No [id number] 5mL Take 5 mL [facility] mine-pseudo 10-04 by mouth 4 i ty of ephedrine-D 00:00: 04:59 (four) [place] (BROMFED 00 :00 times Medical DM) 2-30-10 daily as Bran ch mg/5 mL needed for syrup Congestion /Allergies for up to 10 days. bromphenira 2022-0 2022- No [id number] 5mL Take 5 mL [facility] mine-pseudo 10-04 by mouth 4 i ty of ephedrine-D 00:00: 04:59 (four) [place] (BROMFED 00 :00 times Medical DM) 2-30-10 daily as Bran ch mg/5 mL needed for syrup Congestion /Allergies for up to 10 days. methylPREDN 3-0 2022- No [id number] Take by [employer] 4 10-04 mouth ity of mg tablets 00:00: 04:59 SEE-INSTRU [place] 00 :00 CTIONS for Medical 6 days. Branch follow package directions methylPREDN 2023-0 2022- No [id number] Take by [employer] 4 10-04 mouth ity of mg tablets 00:00: 04:59 SEE-INSTRU [place] 00 :00 CTIONS for Medical 6 days. Branch follow package directions methylPREDN 2023-0 2022- No [id number] Take by [place] [id number] 10-04 mouth ity of mg tablets 00:00: 04:59 SEE-INSTRU [place] 00 :00 CTIONS for Medical 6 days. Branch follow package directions methylPREDN 2022- No [id number] Take by [place] [id number] 10-04 mouth ity of mg tablets 00:00: 04:59 SEE-INSTRU [place] 00 :00 CTIONS for Medical 6 days. Branch follow package directions methylPREDN 2022- No [id number] Take by [place] [id number] 10-04 mouth ity of mg tablets 00:00: 04:59 SEE-INSTRU [place] 00 :00 CTIONS for Medical 6 days. Branch follow package directions methylPREDN 2022- No [id number] Take by [place] [id number] 10-04 mouth ity of mg tablets 00:00: 04:59 SEE-INSTRU [place] 00 :00 CTIONS for Medical 6 days. Branch follow package directions methylPREDN 2022- No [id number] Take by [place] [id number] 10-04 mouth ity of mg tablets 00:00: 04:59 SEE-INSTRU [place] 00 :00 CTIONS for Medical 6 days. Branch follow package directions cyanocobala 2022-0 Yes [id number] 1000 mcg [facility] min, 4-21 injection ity of vitamin 00:00: every [place] B-12, 1,000 00 other Medical mcg/mL month Branch injection cyanocobala 2022-0 Yes [id number] 1000 mcg [facility] min, 4-21 injection ity of vitamin 00:00: every [place] B-12, 1,000 00 other Medical mcg/mL month Branch injection cyanocobala 2022-0 Yes [id number] 1000 mcg [facility] min, 4-21 injection ity of vitamin 00:00: every [place] B-12, 1,000 00 other Medical mcg/mL month Branch injection cyanocobala 2022-0 Yes [id number] 1000 mcg [facility] min, 4-21 injection ity of vitamin 00:00: every [place] B-12, 1,000 00 other Medical mcg/mL month Branch injection cyanocobala 2022-0 Yes [id number] 1000 mcg [facility] min, 4-21 injection ity of vitamin 00:00: every [place] B-12, 1,000 00 other Medical mcg/mL month Branch injection cyanocobala 2022-0 Yes [id number] 1000 mcg [facility] min, 4-21 injection ity of vitamin 00:00: every [place] B-12, 1,000 00 other Medical mcg/mL month Branch injection cyanocobala 2022-0 Yes [id number] 1000 mcg [facility] min, 4-21 injection ity of vitamin 00:00: every [place] B-12, 1,000 00 other Medical mcg/mL month Branch injection cyanocobala 2022-0 Yes [id number] 1000 mcg [facility] min, 4-21 injection ity of vitamin 00:00: every [place] B-12, 1,000 00 other Medical mcg/mL month Branch injection cyanocobala 2022-0 Yes [id number] 1000 mcg [facility] min, 4-21 injection ity of vitamin 00:00: every [place] B-12, 1,000 00 other Medical mcg/mL month Branch injection cyanocobala 2022-0 Yes [id number] 1000 mcg [facility] min, 4-21 injection ity of vitamin 00:00: every [place] B-12, 1,000 00 other Medical mcg/mL month Branch injection cyanocobala 2022-0 Yes [id number] 1000 mcg [facility] min, 4-21 injection ity of vitamin 00:00: every [place] B-12, 1,000 00 other Medical mcg/mL month Branch injection cyanocobala 2022-0 Yes [id number] 1000 mcg [facility] min, 4-21 injection ity of vitamin 00:00: every [place] B-12, 1,000 00 other Medical mcg/mL month Branch injection cyanocobala 2022-0 Yes [id number] 1000 mcg [facility] min, 4-21 injection ity of vitamin 00:00: every [place] B-12, 1,000 00 other Medical mcg/mL month Branch injection cyanocobala 2022-0 Yes [id number] 1000 mcg [facility] min, 4-21 injection ity of vitamin 00:00: every [place] B-12, 1,000 00 other Medical mcg/mL month Branch injection cyanocobala 2022-0 Yes [id number] 1000 mcg [facility] min, 4-21 injection ity of vitamin 00:00: every [place] B-12, 1,000 00 other Medical mcg/mL month Branch injection cyanocobala 2023-0 Yes [id number] 1000 mcg Univers min, 4- injection ity of vitamin 00:00: every [place] B-12, 1,000 00 other Medical mcg/mL month Branch injection barium 2022- No [id number] 30mL 30 mL, Uni vers sulfate-NO 09-30 Oral, ity of CHARGE- 15:00: 15:00 ONCE, 1 [place] (VARIBAR 00 :00 dose, On Medical NECTOR) 40 Josselyn Branch % (w/v) 09/30/22 at oral 1000, suspension Routine 30 mL barium 2022- No [id number] 30g 30 g, Univ ers sulfate 09-30 Oral, ity of (VARIBAR 15:00: 15:00 ONCE, 1 [place] THIN 00 :00 dose, On Medical LIQUID) 81 Josselyn Branch % (w/w) 09/30/22 at oral powder 1000, 30 g Routine vitamin 2022- No [id number] 1000ug Un miki B-12 09-28 ity of (CYANOCOBAL 14:00: 17:14 [place] WHALEN) 00 :30 Medical tablet Branch 1,000 mcg vitamin 2022- No [id number] 1000ug Un miki B-12 09-28-17 ity of (CYANOCOBAL 14:00: 17:14 [place] WHALEN) 00 :30 Medical tablet Branch 1,000 mcg cyanocobala 2022- No [id number] 1000ug [facility] min (DODEX) 09-27 ity of injection 18:00: 17:15 [place] 1,000 mcg 00 :00 Medical Branch cyanocobala 2022- No [id number] 1000ug 1,000 mcg, Univers min (DODEX) 09-27 Intramuscu i ty of injection 18:00: 17:15 [place], ONCE, [place] 1,000 mcg 00 :00 1 dose, On [facility] Mon Branch 09/27/22 at 1300, Routine cyanocobala 2022- No [id number] 1000ug Univers min (DODEX) 09-27 ity of injection 18:00: 17:15 [place] 1,000 mcg 00 :00 Medical Branch cyanocobala 2023-0 2023- No [id number] 1000ug 1,000 mcg, Univers min (DODEX) 09-2717 Intramuscu i ty of injection 18:00: 17:15 lar, ONCE, [place] 1,000 mcg 00 :00 1 dose, On Medi diane Mon Branch 09/27/22 at 1300, Routine dicyclomine 2023-0 [...] ity of mg tablet 00:00: mouth in [place] the Medical morning Branch and 1 [...] of mg tablet 00:00: mouth in [place] the Medical morning Branch and 1 tablet [...] ity of mg tablet 00:00: mouth in [facility] the Medical morning Branch and 1 tablet [...] ity o f tablet 00:00: mouth in [place] 00 the Medical morning Branch and 1 [...] ity of mg tablet 00:00: mouth in [facility] s 00 the Medical morning Branch and 1 tablet in the evening. metroNIDAZO 2023-0 Yes 500mg Take 1 Uni vers LE 500 mg 4-04 tablet by ity o f tablet 00:00: mouth in [place] the Medical morning Branch and 1 tablet at noon and 1 tablet in the evening. ciprofloxac 2023-0 Yes 500mg Take 1 Uni vers in HCl 500 4-04 tablet by ity of mg tablet 00:00: mouth in [facility] s the Medical morning Branch and 1 tablet in the evening. metroNIDAZO 2023-0 Yes 500mg Take 1 Uni vers LE 500 mg 4-04 tablet by ity o f tablet 00:00: mouth in [place] the Medical morning Branch and 1 tablet at noon and 1 tablet in the evening. ciprofloxac 2023-0 Yes 500mg Take 1 Uni vers in HCl 500 4-04 tablet by ity of mg tablet 00:00: mouth in [facility] s the Medical morning Branch and 1 tablet in the evening. metroNIDAZO 2023-0 Yes 500mg Take 1 Uni vers LE 500 mg 4-04 tablet by ity o f tablet 00:00: mouth in [place] 00 the Medical morning Branch and 1 [...] ity o f tablet 00:00: mouth in [place] 00 the Medical morning Branch and 1 tablet at noon and 1 tablet in the evening. ciprofloxac 2023-0 Yes 500mg Take 1 Uni vers in HCl 500 4-04 tablet by ity of mg tablet 00:00: mouth in [facility] the Medical morning Branch and 1 tablet in the evening. metroNIDAZO 2023-0 Yes 500mg Take 1 Uni vers LE 500 mg 4-04 tablet by ity o f tablet 00:00: mouth in [place] 00 the Medical morning Branch and 1 tablet at noon and 1 tablet in the evening. ciprofloxac 2023-0 Yes 500mg Take 1 Uni vers in HCl 500 4-04 tablet by ity of mg tablet 00:00: mouth in [facility] the Medical morning Branch and 1 tablet in the evening. metroNIDAZO 2023-0 Yes 500mg Take 1 Uni vers LE 500 mg 4-04 tablet by ity o f tablet 00:00: mouth in [place] the Medical morning Branch and 1 tablet at noon and 1 tablet in the evening. ciprofloxac 2023-0 Yes 500mg Take 1 Uni vers in HCl 500 4-04 tablet by ity of mg tablet 00:00: mouth in [facility] the Medical morning Branch and 1 tablet in the evening. metroNIDAZO 2023-0 Yes 500mg Take 1 Uni vers LE 500 mg 4-04 tablet by ity o f tablet 00:00: mouth in [place] the Medical morning Branch and 1 tablet at noon and 1 tablet in the evening. ciprofloxac 2023-0 Yes 500mg Take 1 Uni vers in HCl 500 4-04 tablet by ity of mg tablet 00:00: mouth in [facility] the Medical morning Branch and 1 tablet in the evening. metroNIDAZO 2023-0 Yes 500mg Take 1 Uni vers LE 500 mg 4-04 tablet by ity o f tablet 00:00: mouth in [place] the Medical morning Branch and 1 tablet at noon and 1 tablet in the evening. ciprofloxac 2023-0 Yes 500mg Take 1 Uni vers in HCl 500 4-04 tablet by ity of mg tablet 00:00: mouth in [facility] the Medical morning Branch and 1 tablet in the evening. metroNIDAZO 2023-0 Yes 500mg Take 1 Uni vers LE 500 mg 4-04 tablet by ity o f tablet 00:00: mouth in [place] 00 the Medical morning Branch and 1 tablet at noon and 1 tablet in the evening. ciprofloxac 2023-0 Yes 500mg Take 1 Uni vers in HCl 500 4-04 tablet by ity of mg tablet 00:00: mouth in [facility] the Medical morning Branch and 1 tablet in the evening. metroNIDAZO 2023-0 Yes 500mg Take 1 Uni vers LE 500 mg 4-04 tablet by ity o f tablet 00:00: mouth in [place] 00 the Medical morning Branch and 1 tablet at noon and 1 tablet in the evening. ciprofloxac 2023-0 2023- No 500mg Take 1 Un miki in HCl 500 4-04 04-24 tablet by ity of mg tablet 00:00: 00:00 mouth in [place] [facility] 00 :00 the Medical morning Branch and 1 tablet in the evening. metroNIDAZO 2023-0 2023- No 500mg Take 1 Un miki LE 500 mg 4-04 04-24 tablet by ity of tablet 00:00: 00:00 mouth in [place] 00 :00 the Medical morning Branch and 1 tablet at noon and 1 tablet in the evening. Dexlansopra 2023-0 Yes 60mg Take 1 Univ ers zole 60 mg 3-02 capsule by ity of capsule 15:20: mouth. [address] Dexlansopra 2023-0 Yes 60mg Take 1 Univ ers zole 60 mg 3-02 capsule by ity of capsule 15:20: mouth. [address] Dexlansopra 2023-0 Yes 60mg Take 1 Univ ers zole 60 mg 3-02 capsule by ity of capsule 15:20: mouth. [address] Dexlansopra 2023-0 Yes 60mg Take 1 Univ ers zole 60 mg 3-02 capsule by ity of capsule 15:20: mouth. [address] Dexlansopra 2023-0 Yes 60mg Take 1 Univ ers zole 60 mg 3-02 capsule by ity of capsule 15:20: mouth. [address] Dexlansopra 2023-0 Yes 60mg Take 1 Univ ers zole 60 mg 3-02 capsule by ity of capsule 15:20: mouth. [address] Dexlansopra 2023-0 Yes 60mg Take 1 Univ ers zole 60 mg 3-02 capsule by ity of capsule 15:20: mouth. [address] Dexlansopra 2022-0 Yes 60mg Take 1 Univ ers zole 60 mg 3-02 capsule by ity of capsule 15:20: mouth. [address] Dexlansopra 2022-0 Yes 60mg Take 1 Univ ers zole 60 mg 3-02 capsule by ity of capsule 15:20: mouth. [address] Dexlansopra 2022-0 Yes 60mg Take 1 [facility] zole 60 mg 3-02 capsule by [facility] of capsule 15:20: mouth. [address] Dexlansopra 2022-0 Yes 60mg Take 1 [facility] zole 60 mg 3-02 capsule by ity of capsule 15:20: mouth. [address] Dexlansopra 2022-0 Yes 60mg Take 1 [facility] zole 60 mg 3-02 capsule by ity of capsule 15:20: mouth. [address] Dexlansopra 2022-0 Yes 60mg Take 1 [facility] zole 60 mg 3-02 capsule by ity of capsule 15:20: mouth. [address] Dexlansopra 2022-0 Yes 60mg Take 1 [facility] zole 60 mg 3-02 capsule by ity of capsule 15:20: mouth. [address] Dexlansopra 2022-0 Yes 60mg Take 1 [facility] zole 60 mg 3-02 capsule by ity of capsule 15:20: mouth. [address] Dexlansopra 2022-0 Yes 60mg Take 1 [facility] zole 60 mg 3-02 capsule by ity of capsule 15:20: mouth. [address] Dexlansopra 2022-0 Yes 60mg Take 1 [facility] zole 60 mg 3-02 capsule by ity of capsule 15:20: mouth. [address] Dexlansopra 2022-0 Yes 60mg Take 1 [facility] zole 60 mg 3-02 capsule by ity of capsule 15:20: mouth. [address] Dexlansopra 2022-0 Yes 60mg Take 1 [facility] zole 60 mg 3-02 capsule by ity of capsule 15:20: mouth. [address] Dexlansopra 2022-0 Yes 60mg Take 1 [facility] zole 60 mg 3-02 capsule by ity of capsule 15:20: mouth. [place] [address] [facility] Branch DEXLANSOPRA 2023-0 Yes 60mg Take 60 mg [facility] ZOLE ORAL 3-02 by mouth ity of 00:00: in the [place] 00 morning. Medical Branch DEXLANSOPRA 2023-0 Yes 60mg Take 60 mg [facility] ZOLE ORAL 3-02 by mouth ity of 00:00: in the [place] 00 morning. Medical Branch DEXLANSOPRA 2023-0 Yes 60mg Take 60 mg [facility] ZOLE ORAL 3-02 by mouth ity of 00:00: in the [place] 00 morning. Medical Branch DEXLANSOPRA 2023-0 Yes 60mg Take 60 mg [facility] ZOLE ORAL 3-02 by mouth ity of 00:00: in the [place] 00 morning. Medical Branch DEXLANSOPRA 2023-0 Yes 60mg Take 60 mg [facility] ZOLE ORAL 3-02 by mouth ity of 00:00: in the [place] 00 morning. Medical Branch DEXLANSOPRA 2023-0 Yes 60mg Take 60 mg [facility] ZOLE ORAL 3-02 by mouth ity of 00:00: in the [place] 00 morning. Medical Branch DEXLANSOPRA 2023-0 Yes 60mg Take 60 mg [facility] ZOLE ORAL 3-02 by mouth ity of 00:00: in the [place] 00 morning. Medical Branch DEXLANSOPRA 2023-0 Yes 60mg Take 60 mg [facility] ZOLE ORAL 3-02 by mouth ity of 00:00: in the [place] 00 morning. Medical Branch DEXLANSOPRA 2023-0 Yes 60mg Take 60 mg [facility] ZOLE ORAL 3-02 by mouth ity of 00:00: in the [place] 00 morning. Medical Branch DEXLANSOPRA 2023-0 Yes 60mg Take 60 mg [facility] ZOLE ORAL 3-02 by mouth ity of 00:00: in the [place] 00 morning. Medical Branch DEXLANSOPRA 2023-0 Yes 60mg Take 60 mg [facility] ZOLE ORAL 3-02 by mouth ity of 00:00: in the [place] 00 morning. Medical Branch DEXLANSOPRA 2023-0 Yes 60mg Take 60 mg [facility] ZOLE ORAL 3-02 by mouth ity of 00:00: in the [place] 00 morning. Medical Branch DEXLANSOPRA 2023-0 Yes 60mg Take 60 mg [facility] ZOLE ORAL 3-02 by mouth ity of 00:00: in the [place] 00 morning. Medical Branch DEXLANSOPRA 2023-0 Yes 60mg Take 60 mg [facility] ZOLE ORAL 3-02 by mouth ity of 00:00: in the [place] 00 morning. Medical Branch DEXLANSOPRA 2023-0 Yes 60mg Take 60 mg [facility] ZOLE ORAL 3-02 by mouth ity of 00:00: in the [place] 00 morning. Medical Branch DEXLANSOPRA 2023-0 Yes 60mg Take 60 mg [facility] ZOLE ORAL 3-02 by mouth ity of 00:00: in the [place] 00 morning. Medical Branch DEXLANSOPRA 2023-0 Yes 60mg Take 60 mg [facility] ZOLE ORAL 3-02 by mouth ity of 00:00: in the [place] 00 morning. Medical Branch DEXLANSOPRA 2023-0 Yes 60mg Take 60 mg [facility] ZOLE ORAL 3-02 by mouth ity of 00:00: in the [place] 00 morning. Medical Branch DEXLANSOPRA 2023-0 Yes 60mg Take 60 mg [facility] ZOLE ORAL 3-02 by mouth ity of 00:00: in the [place] 00 morning. Medical Branch DEXLANSOPRA 2023-0 Yes 60mg Take 60 mg [facility] ZOLE ORAL 3-02 by mouth ity of 00:00: in the [place] 00 morning. Medical Branch DEXLANSOPRA 2023-0 Yes 60mg Take 60 mg [facility] ZOLE ORAL 3-02 by mouth ity of 00:00: in the [place] 00 morning. Medical Branch DEXLANSOPRA 2023-0 Yes 60mg Take 60 mg [facility] ZOLE ORAL 3-02 by mouth ity of 00:00: in the [place] 00 morning. Medical Branch DEXLANSOPRA 2023-0 Yes 60mg Take 60 mg [facility] ZOLE ORAL 3-02 by mouth ity of 00:00: in the [place] 00 morning. Medical Branch DEXLANSOPRA 2023-0 Yes 60mg Take 60 mg [facility] ZOLE ORAL 3-02 by mouth ity of 00:00: in the [place] 00 morning. Medical Branch DEXLANSOPRA 2023-0 Yes 60mg Take 60 mg [facility] ZOLE ORAL 3-02 by mouth ity of 00:00: in the [place] 00 morning. Medical Branch DEXLANSOPRA 2023-0 Yes 60mg Take 60 mg [facility] ZOLE ORAL 3-02 by mouth ity of 00:00: in the [place] 00 morning. Medical Branch DEXLANSOPRA 3-0 Yes 60mg Take 60 mg [facility] ZOLE ORAL 3-02 by mouth ity of 00:00: in the [place] 00 morning. Medical Branch DEXLANSOPRA 2022-0 Yes 60mg Take 60 mg [facility] ZOLE ORAL 3-02 by mouth ity of 00:00: in the [place] 00 morning. Medical Branch Self's 2022-0 Yes [id number] 15mL Take 15 mL [facility] magic 2-08 by mouth ity of mouthwash 00:00: every 6 [place] suspension 00 (six) Medical hours. Branch pantoprazol 2022-0 Yes [id number] 40mg Take 1 [facility] e 40 mg EC 2-08 tablet by ity of tablet 00:00: mouth in [place] 00 the Medical morning Branch and 1 tablet in the evening. ondansetron 2022-0 Yes [id number] 4mg Take 1 [facility] 4 mg 2-08 tablet by ity of disintegrat 00:00: mouth [place] ing tablet 00 every 4 Medica l (four) Branch hours as needed for Nausea and Vomiting (N/V). [place] 2022-0 Yes [id number] 15mL Take 15 mL [facility] magic 2-08 by mouth ity of mouthwash 00:00: every 6 [place] suspension 00 (six) Medical hours. Branch pantoprazol 2022-0 Yes [id number] 40mg Take 1 [facility] e 40 mg EC 2-08 tablet by ity of tablet 00:00: mouth in [place] 00 the Medical morning Branch and 1 tablet in the evening. ondansetron 2022-0 Yes [id number] 4mg Take 1 [facility] 4 mg 2-08 tablet by ity of disintegrat 00:00: mouth [place] ing tablet 00 every 4 Medica l (four) Branch hours as needed for Nausea and Vomiting (N/V). Self's 2022-0 Yes [id number] 15mL Take 15 mL [facility] magic 2-08 by mouth ity of mouthwash 00:00: every 6 [place] suspension 00 (six) Medical hours. Branch pantoprazol 2022-0 Yes [id number] 40mg Take 1 [facility] e 40 mg EC 2-08 tablet by ity of tablet 00:00: mouth in [place] 00 the Medical morning Branch and 1 tablet in the evening. ondansetron 2022-0 Yes [id number] 4mg Take 1 [facility] 4 mg 2-08 tablet by ity of disintegrat 00:00: mouth [place] ing tablet 00 every 4 Medica l (four) Branch hours as needed for Nausea and Vomiting (N/V). Self's 2022-0 Yes [id number] 15mL Take 15 mL [facility] magic 2-08 by mouth ity of mouthwash 00:00: every 6 [place] suspension 00 (six) Medical hours. Branch pantoprazol 2022-0 Yes [id number] 40mg Take 1 [facility] e 40 mg EC 2-08 tablet by ity of tablet 00:00: mouth in [place] 00 the Medical morning Branch and 1 tablet in the evening. ondansetron 2022-0 Yes [id number] 4mg Take 1 [facility] 4 mg 2-08 tablet by ity of disintegrat 00:00: mouth [place] ing tablet 00 every 4 Medica l (four) Branch hours as needed for Nausea and Vomiting (N/V). Self's Yes [id number] 15mL Take 15 mL [facility] magic 2-08 by mouth ity of mouthwash 00:00: every 6 [place] suspension 00 (six) Medical hours. Branch pantoprazol 2022-0 Yes [id number] 40mg Take 1 [facility] e 40 mg EC 2-08 tablet by ity of tablet 00:00: mouth in [place] 00 the Medical morning Branch and 1 tablet in the evening. ondansetron 2022-0 Yes [id number] 4mg Take 1 [facility] 4 mg 2-08 tablet by ity of disintegrat 00:00: mouth [place] ing tablet 00 every 4 Medica l (four) Branch hours as needed for Nausea and Vomiting (N/V). Self's Yes [id number] 15mL Take 15 mL [facility] magic 2-08 by mouth ity of mouthwash 00:00: every 6 [place] suspension 00 (six) Medical hours. Branch pantoprazol 2022-0 Yes [id number] 40mg Take 1 [facility] e 40 mg EC 2-08 tablet by ity of tablet 00:00: mouth in [place] 00 the Medical morning Branch and 1 tablet in the evening. ondansetron 2022-0 Yes [id number] 4mg Take 1 [facility] 4 mg 2-08 tablet by ity of disintegrat 00:00: mouth [place] ing tablet 00 every 4 Medica l (four) Branch hours as needed for Nausea and Vomiting (N/V). Self's Yes [id number] 15mL Take 15 mL [facility] magic 2-08 by mouth ity of mouthwash 00:00: every 6 [place] suspension 00 (six) Medical hours. Branch pantoprazol 0 Yes [id number] 40mg Take 1 [facility] e 40 mg EC 2-08 tablet by ity of tablet 00:00: mouth in [place] 00 the Medical morning Branch and 1 tablet in the evening. ondansetron Yes [id number] 4mg Take 1 [facility] 4 mg 2-08 tablet by ity of disintegrat 00:00: mouth [place] ing tablet 00 every 4 Medica l (four) Branch hours as needed for Nausea and Vomiting (N/V). Self's Yes [id number] 15mL Take 15 mL [facility] magic 2-08 by mouth ity of mouthwash 00:00: every 6 [place] suspension 00 (six) Medical hours. Branch pantoprazol 2022- Yes [id number] 40mg Take 1 [facility] e 40 mg EC 2-08 tablet by ity of tablet 00:00: mouth in [place] 00 the Medical morning Branch and 1 tablet in the evening. ondansetron 2022-0 Yes [id number] 4mg Take 1 [facility] 4 mg 2-08 tablet by ity of disintegrat 00:00: mouth [place] ing tablet 00 every 4 Medica l (four) Branch hours as needed for Nausea and Vomiting (N/V). Self's Yes [id number] 15mL Take 15 mL [facility] magic 2-08 by mouth ity of mouthwash 00:00: every 6 [place] suspension 00 (six) Medical hours. Branch pantoprazol 2022-0 Yes [id number] 40mg Take 1 [facility] e 40 mg EC 2-08 tablet by ity of tablet 00:00: mouth in [place] 00 the Medical morning Branch and 1 tablet in the evening. ondansetron 2022-0 Yes [id number] 4mg Take 1 [facility] 4 mg 2-08 tablet by ity of disintegrat 00:00: mouth [place] ing tablet 00 every 4 Medica l (four) Branch hours as needed for Nausea and Vomiting (N/V). [place] 2023-0 Yes [id number] 15mL Take 15 mL [facility] magic 2-08 by mouth ity of mouthwash 00:00: every 6 [place] suspension 00 (six) Medical hours. Branch pantoprazol 2022-0 Yes [id number] 40mg Take 1 [facility] e 40 mg EC 2-08 tablet by ity of tablet 00:00: mouth in [place] 00 the Medical morning Branch and 1 tablet in the evening. ondansetron 2022-0 Yes [id number] 4mg Take 1 [facility] 4 mg 2-08 tablet by ity of disintegrat 00:00: mouth [place] ing tablet 00 every 4 Medica l (four) Branch hours as needed for Nausea and Vomiting (N/V). Self's Yes [id number] 15mL Take 15 mL [facility] magic 2-08 by mouth ity of mouthwash 00:00: every 6 [place] suspension 00 (six) Medical hours. Branch pantoprazol 2022-0 Yes [id number] 40mg Take 1 [facility] e 40 mg EC 2-08 tablet by ity of tablet 00:00: mouth in [place] 00 the Medical morning Branch and 1 tablet in the evening. ondansetron 2022-0 Yes [id number] 4mg Take 1 [facility] 4 mg 2-08 tablet by ity of disintegrat 00:00: mouth [place] ing tablet 00 every 4 Medica l (four) Branch hours as needed for Nausea and Vomiting (N/V). Self's Yes [id number] 15mL Take 15 mL [facility] magic 2-08 by mouth ity of mouthwash 00:00: every 6 [place] suspension 00 (six) Medical hours. Branch pantoprazol 2022-0 Yes [id number] 40mg Take 1 [facility] e 40 mg EC 2-08 tablet by ity of tablet 00:00: mouth in [place] 00 the Medical morning Branch and 1 tablet in the evening. ondansetron 2022-0 Yes [id number] 4mg Take 1 [facility] 4 mg 2-08 tablet by ity of disintegrat 00:00: mouth [place] ing tablet 00 every 4 Medica l (four) Branch hours as needed for Nausea and Vomiting (N/V). Self's Yes [id number] 15mL Take 15 mL [facility] magic 2-08 by mouth ity of mouthwash 00:00: every 6 [place] suspension 00 (six) Medical hours. Branch pantoprazol 2022-0 Yes [id number] 40mg Take 1 [facility] e 40 mg EC 2-08 tablet by ity of tablet 00:00: mouth in [place] 00 the Medical morning Branch and 1 tablet in the evening. ondansetron 2022-0 Yes [id number] 4mg Take 1 [facility] 4 mg 2-08 tablet by ity of disintegrat 00:00: mouth [place] ing tablet 00 every 4 Medica l (four) Branch hours as needed for Nausea and Vomiting (N/V). [place] 2022-0 Yes [id number] 15mL Take 15 mL [facility] magic 2-08 by mouth ity of mouthwash 00:00: every 6 [place] suspension 00 (six) Medical hours. Branch pantoprazol 2022-0 Yes [id number] 40mg Take 1 [facility] e 40 mg EC 2-08 tablet by ity of tablet 00:00: mouth in [place] 00 the Medical morning Branch and 1 tablet in the evening. ondansetron 2022-0 Yes [id number] 4mg Take 1 [facility] 4 mg 2-08 tablet by ity of disintegrat 00:00: mouth [place] ing tablet 00 every 4 Medica l (four) Branch hours as needed for Nausea and Vomiting (N/V). [place] Yes [id number] 15mL Take 15 mL [facility] magic 2-08 by mouth ity of mouthwash 00:00: every 6 [place] suspension 00 (six) Medical hours. Branch pantoprazol 2022-0 Yes [id number] 40mg Take 1 [facility] e 40 mg EC 2-08 tablet by ity of tablet 00:00: mouth in [place] 00 the Medical morning Branch and 1 tablet in the evening. ondansetron 2022-0 Yes [id number] 4mg Take 1 [facility] 4 mg 2-08 tablet by ity of disintegrat 00:00: mouth [place] ing tablet 00 every 4 Medica l (four) Branch hours as needed for Nausea and Vomiting (N/V). [place] 2022-0 Yes [id number] 15mL Take 15 mL [facility] magic 2-08 by mouth ity of mouthwash 00:00: every 6 [place] suspension 00 (six) Medical hours. Branch pantoprazol 2022-0 Yes [id number] 40mg Take 1 [facility] e 40 mg EC 2-08 tablet by ity of tablet 00:00: mouth in [place] 00 the Medical morning Branch and 1 tablet in the evening. ondansetron 3-0 Yes [id number] 4mg Take 1 [facility] 4 mg 2-08 tablet by ity of disintegrat 00:00: mouth [place] ing tablet 00 every 4 Medica l (four) Branch hours as needed for Nausea and Vomiting (N/V). Self's 2022-0 Yes [id number] 15mL Take 15 mL [facility] magic 2-08 by mouth ity of mouthwash 00:00: every 6 [place] suspension 00 (six) Medical hours. Branch pantoprazol 2022-0 Yes [id number] 40mg Take 1 [facility] e 40 mg EC 2-08 tablet by ity of tablet 00:00: mouth in [place] 00 the Medical morning Branch and 1 tablet in the evening. ondansetron 2022-0 Yes [id number] 4mg Take 1 [facility] 4 mg 2-08 tablet by ity of disintegrat 00:00: mouth [place] ing tablet 00 every 4 Medica l (four) Branch hours as needed for Nausea and Vomiting (N/V). Self's 2022-0 Yes [id number] 15mL Take 15 mL [facility] magic 2-08 by mouth ity of mouthwash 00:00: every 6 [place] suspension 00 (six) Medical hours. Branch pantoprazol 2022-0 Yes [id number] 40mg Take 1 [facility] e 40 mg EC 2-08 tablet by ity of tablet 00:00: mouth in [place] 00 the Medical morning Branch and 1 tablet in the evening. ondansetron 2022-0 Yes [id number] 4mg Take 1 [facility] 4 mg 2-08 tablet by ity of disintegrat 00:00: mouth [place] ing tablet 00 every 4 Medica l (four) Branch hours as needed for Nausea and Vomiting (N/V). Self's 2022-0 Yes [id number] 15mL Take 15 mL [facility] magic 2-08 by mouth ity of mouthwash 00:00: every 6 [place] suspension 00 (six) Medical hours. Branch pantoprazol 3-0 Yes [id number] 40mg Take 1 [facility] e 40 mg EC 2-08 tablet by ity of tablet 00:00: mouth in [place] 00 the Medical morning Branch and 1 tablet in the evening. ondansetron 3-0 Yes [id number] 4mg Take 1 [facility] 4 mg 2-08 tablet by ity of disintegrat 00:00: mouth [place] ing tablet 00 every 4 Medica l (four) Branch hours as needed for Nausea and Vomiting (N/V). Self's Yes [id number] 15mL Take 15 mL [facility] magic 2-08 by mouth ity of mouthwash 00:00: every 6 [place] suspension 00 (six) Medical hours. Branch pantoprazol 2022-0 Yes [id number] 40mg Take 1 [facility] e 40 mg EC 2-08 tablet by ity of tablet 00:00: mouth in [place] 00 the Medical morning Branch and 1 tablet in the evening. ondansetron 2022-0 Yes [id number] 4mg Take 1 [facility] 4 mg 2-08 tablet by ity of disintegrat 00:00: mouth [place] ing tablet 00 every 4 Medica l (four) Branch hours as needed for Nausea and Vomiting (N/V). [place] Yes [id number] 15mL Take 15 mL [facility] magic 2-08 by mouth ity of mouthwash 00:00: every 6 [place] suspension 00 (six) Medical hours. Branch pantoprazol 2022-0 Yes [id number] 40mg Take 1 [facility] e 40 mg EC 2-08 tablet by ity of tablet 00:00: mouth in [place] 00 the Medical morning Branch and 1 tablet in the evening. ondansetron 2022-0 Yes [id number] 4mg Take 1 [facility] 4 mg 2-08 tablet by ity of disintegrat 00:00: mouth [place] ing tablet 00 every 4 Medica l (four) Branch hours as needed for Nausea and Vomiting (N/V). Self's Yes [id number] 15mL Take 15 mL [facility] magic 2-08 by mouth ity of mouthwash 00:00: every 6 [place] suspension 00 (six) Medical hours. Branch pantoprazol 2022-0 Yes [id number] 40mg Take 1 [facility] e 40 mg EC 2-08 tablet by ity of tablet 00:00: mouth in [place] 00 the Medical morning Branch and 1 tablet in the evening. ondansetron 2022-0 Yes [id number] 4mg Take 1 [facility] 4 mg 2-08 tablet by ity of disintegrat 00:00: mouth [place] ing tablet 00 every 4 Medica l (four) Branch hours as needed for Nausea and Vomiting (N/V). Self's Yes [id number] 15mL Take 15 mL [facility] magic 2-08 by mouth ity of mouthwash 00:00: every 6 [place] suspension 00 (six) Medical hours. Branch pantoprazol Yes [id number] 40mg Take 1 [facility] e 40 mg EC 2-08 tablet by ity of tablet 00:00: mouth in [place] 00 the Medical morning Branch and 1 tablet in the evening. ondansetron Yes [id number] 4mg Take 1 [facility] 4 mg 2-08 tablet by ity of disintegrat 00:00: mouth [place] ing tablet 00 every 4 Medica l (four) Branch hours as needed for Nausea and Vomiting (N/V). Self's Yes [id number] 15mL Take 15 mL [facility] magic 2-08 by mouth ity of mouthwash 00:00: every 6 [place] suspension 00 (six) Medical hours. Branch pantoprazol Yes [id number] 40mg Take 1 [facility] e 40 mg EC 2-08 tablet by ity of tablet 00:00: mouth in [place] 00 the Medical morning Branch and 1 tablet in the evening. ondansetron 2022- Yes [id number] 4mg Take 1 [facility] 4 mg 2-08 tablet by ity of disintegrat 00:00: mouth [place] ing tablet 00 every 4 Medica l (four) Branch hours as needed for Nausea and Vomiting (N/V). Self's Yes [id number] 15mL Take 15 mL [facility] magic 2-08 by mouth ity of mouthwash 00:00: every 6 [place] suspension 00 (six) Medical hours. Branch pantoprazol 0 Yes [id number] 40mg Take 1 [facility] e 40 mg EC 2-08 tablet by ity of tablet 00:00: mouth in [place] 00 the Medical morning Branch and 1 tablet in the evening. ondansetron 2022-0 Yes [id number] 4mg Take 1 [facility] 4 mg 2-08 tablet by ity of disintegrat 00:00: mouth [place] ing tablet 00 every 4 Medica l (four) Branch hours as needed for Nausea and Vomiting (N/V). Self's Yes [id number] 15mL Take 15 mL [facility] magic 2-08 by mouth ity of mouthwash 00:00: every 6 [place] suspension 00 (six) Medical hours. Branch pantoprazol 2022-0 Yes [id number] 40mg Take 1 [facility] e 40 mg EC 2-08 tablet by ity of tablet 00:00: mouth in [place] 00 the Medical morning Branch and 1 tablet in the evening. ondansetron 2022-0 Yes [id number] 4mg Take 1 [facility] 4 mg 2-08 tablet by ity of disintegrat 00:00: mouth [place] ing tablet 00 every 4 Medica l (four) Branch hours as needed for Nausea and Vomiting (N/V). Self's Yes [id number] 15mL Take 15 mL [facility] magic 2-08 by mouth ity of mouthwash 00:00: every 6 [place] suspension 00 (six) Medical hours. Branch pantoprazol 2022-0 Yes [id number] 40mg Take 1 [facility] e 40 mg EC 2-08 tablet by ity of tablet 00:00: mouth in [place] 00 the Medical morning Branch and 1 tablet in the evening. ondansetron 2022-0 Yes [id number] 4mg Take 1 [facility] 4 mg 2-08 tablet by ity of disintegrat 00:00: mouth [place] ing tablet 00 every 4 Medica l (four) Branch hours as needed for Nausea and Vomiting (N/V). Self's Yes [id number] 15mL Take 15 mL [facility] magic 2-08 by mouth ity of mouthwash 00:00: every 6 [place] suspension 00 (six) Medical hours. Branch pantoprazol 2022-0 Yes [id number] 40mg Take 1 [facility] e 40 mg EC 2-08 tablet by ity of tablet 00:00: mouth in [place] 00 the Medical morning Branch and 1 tablet in the evening. ondansetron 2022-0 Yes [id number] 4mg Take 1 [facility] 4 mg 2-08 tablet by ity of disintegrat 00:00: mouth [place] ing tablet 00 every 4 Medica l (four) Branch hours as needed for Nausea and Vomiting (N/V). Self's 2022-0 Yes [id number] 15mL Take 15 mL [facility] magic 2-08 by mouth ity of mouthwash 00:00: every 6 [place] suspension 00 (six) Medical hours. Branch pantoprazol 3-0 Yes [id number] 40mg Take 1 [facility] e 40 mg EC 2-08 tablet by ity of tablet 00:00: mouth in [place] 00 the Medical morning Branch and 1 tablet in the evening. ondansetron 2023-0 Yes [id number] 4mg Take 1 [facility] 4 mg 2-08 tablet by ity of disintegrat 00:00: mouth [place] ing tablet 00 every 4 Medica l (four) Branch hours as needed for Nausea and Vomiting (N/V). pantoprazol 2023-0 Yes [id number] 40mg Take 1 [facility] e 40 mg EC 2-08 tablet by ity of tablet 00:00: mouth in [place] 00 the Medical morning Branch and 1 tablet in the evening. ondansetron 2023-0 Yes [id number] 4mg Take 1 [facility] 4 mg 2-08 tablet by ity of disintegrat 00:00: mouth [place] ing tablet 00 every 4 Medica l (four) Branch hours as needed for Nausea and Vomiting (N/V). pantoprazol 2023-0 Yes [id number] 40mg Take 1 [facility] e 40 mg EC 2-08 tablet by ity of tablet 00:00: mouth in [place] the Medical morning Branch and 1 tablet in the evening. ondansetron 2023-0 Yes [id number] 4mg Take 1 [facility] 4 mg 2-08 tablet by ity of disintegrat 00:00: mouth [place] ing tablet 00 every 4 Medica l (four) Branch hours as needed for Nausea and Vomiting (N/V). pantoprazol 2023-0 Yes [id number] 40mg Take 1 [facility] e 40 mg EC 2-08 tablet by ity of tablet 00:00: mouth in [place] the Medical morning Branch and 1 tablet in the evening. ondansetron 2023-0 Yes [id number] 4mg Take 1 [facility] 4 mg 2-08 tablet by ity of disintegrat 00:00: mouth [place] ing tablet 00 every 4 Medica l (four) Branch hours as needed for Nausea and Vomiting (N/V). pantoprazol 2023-0 Yes [id number] 40mg Take 1 [facility] e 40 mg EC 2-08 tablet by ity of tablet 00:00: mouth in [place] [address] the Medical morning Branch and 1 tablet in the evening. ondansetron 2023-0 Yes [id number] 4mg Take 1 [facility] 4 mg 2-08 tablet by ity of disintegrat 00:00: mouth [place] ing tablet 00 every 4 Medica l (four) Branch hours as needed for Nausea and Vomiting (N/V). pantoprazol 2023-0 Yes [id number] 40mg Take 1 [facility] e 40 mg EC 2-08 tablet by ity of tablet 00:00: mouth in [place] 00 the Medical morning Branch and 1 tablet in the evening. ondansetron 2023-0 Yes [id number] 4mg Take 1 [facility] 4 mg 2-08 tablet by ity of disintegrat 00:00: mouth [place] ing tablet 00 every 4 Medica l (four) Branch hours as needed for Nausea and Vomiting (N/V). pantoprazol 2023-0 Yes [id number] 40mg Take 1 [facility] e 40 mg EC 2-08 tablet by ity of tablet 00:00: mouth in [place] 00 the Medical morning Branch and 1 tablet in the evening. ondansetron 2023-0 Yes [id number] 4mg Take 1 [facility] 4 mg 2-08 tablet by ity of disintegrat 00:00: mouth [place] ing tablet 00 every 4 Medica l (four) Branch hours as needed for Nausea and Vomiting (N/V). pantoprazol 2023-0 Yes [id number] 40mg Take 1 [facility] e 40 mg EC 2-08 tablet by ity of tablet 00:00: mouth in [place] 00 the Medical morning Branch and 1 tablet in the evening. pantoprazol 2023-0 Yes [id number] 40mg Take 1 [facility] e 40 mg EC 2-08 tablet by ity of tablet 00:00: mouth in [place] 00 the Medical morning Branch and 1 tablet in the evening. pantoprazol 2023-0 Yes [id number] 40mg Take 1 [facility] e 40 mg EC 2-08 tablet by ity of tablet 00:00: mouth in [place] 00 the Medical morning Branch and 1 tablet in the evening. pantoprazol 2023-0 Yes [id number] 40mg Take 1 [facility] e 40 mg EC 2-08 tablet by ity of tablet 00:00: mouth in [place] 00 the Medical morning Branch and 1 tablet in the evening. pantoprazol 2023-0 Yes [id number] 40mg Take 1 [facility] e 40 mg EC 2-08 tablet by ity of tablet 00:00: mouth in [place] [address] the Medical morning Branch and 1 tablet in the evening. pantoprazol 2023-0 Yes [id number] 40mg Take 1 [facility] e 40 mg EC 2-08 tablet by ity of tablet 00:00: mouth in [place] 00 the Medical morning Branch and 1 tablet in the evening. pantoprazol 2023-0 Yes [id number] 40mg Take 1 [facility] e 40 mg EC 2-08 tablet by ity of tablet 00:00: mouth in [place] 00 the Medical morning Branch and 1 tablet in the evening. pantoprazol 2023-0 Yes [id number] 40mg Take 1 [facility] e 40 mg EC 2-08 tablet by ity of tablet 00:00: mouth in [place] 00 the Medical morning Branch and 1 tablet in the evening. pantoprazol 2023-0 Yes [id number] 40mg Take 1 [facility] e 40 mg EC 2-08 tablet by ity of tablet 00:00: mouth in [place] [address] the Medical morning Branch and 1 tablet in the evening. pantoprazol 2023-0 Yes [id number] 40mg Take 1 [facility] e 40 mg EC 2-08 tablet by ity of tablet 00:00: mouth in [place] [id number] the Medical morning Branch and 1 tablet in the evening. ondansetron 2022-0 2022- No [id number] 4mg Take 1 [facility] 4 mg 2-08 04-27 tablet by ity of disintegrat 00:00: 00:[place] tablet 00 :00 every 4 Medica l (four) Branch hours as needed for Nausea and Vomiting (N/V). ondansetron 2022-0 2022- No [id number] 4mg Take 1 [facility] 4 mg 2-08 04-27 tablet by ity of disintegrat 00:00: 00:[place] tablet 00 :00 every 4 Medica l (four) Branch hours as needed for Nausea and Vomiting (N/V). ondansetron 3-0 2022- No [id number] 4mg Take 1 [facility] 4 mg 2-08 04-27 tablet by ity of disintegrat 00:00: 00:00 [place] tablet 00 :00 every 4 Medica l (four) Branch hours as needed for Nausea and Vomiting (N/V). ondansetron 3-0 2022- No [id number] 4mg Take 1 [facility] 4 mg 07-21 tablet by ity of disintegrat 00:00: 00:[place] tablet 00 :00 every 4 Medica l (four) Branch hours as needed for Nausea and Vomiting (N/V). Self's 202- No [id number] 15mL Take 15 mL [facility] magic 07-21 by mouth ity of mouthwash 00:00: 00:00 every 6 [place] suspension 00 :00 (six) Medical hours. Branch pregabalin 0 Yes [id number] 1 cap po [facility] 75 mg 1-04 TID prn ity of capsule 00:00: low back [place] 00 pain. May Medical take extra Branch capsule once per day. pregabalin 2022-0 Yes [id number] 1 cap po [facility] 75 mg 1-04 TID prn ity of capsule 00:00: low back [place] 00 pain. May Medical take extra Branch capsule once per day. pregabalin 2022-0 Yes [id number] 1 cap po [facility] 75 mg 1-04 TID prn ity of capsule 00:00: low back [place] 00 pain. May Medical take extra Branch capsule once per day. pregabalin 2022-0 Yes [id number] 1 cap po [facility] 75 mg 1-04 TID prn ity of capsule 00:00: low back [place] 00 pain. May Medical take extra Branch capsule once per day. pregabalin 2022-0 Yes [id number] 1 cap po [facility] 75 mg 1-04 TID prn ity of capsule 00:00: low back [place] 00 pain. May Medical take extra Branch capsule once per day. pregabalin 2022-0 Yes [id number] 1 cap po [facility] 75 mg 1-04 TID prn ity of capsule 00:00: low back [place] 00 pain. May Medical take extra Branch capsule once per day. pregabalin 2022-0 Yes [id number] 1 cap po [facility] 75 mg 1-04 TID prn ity of capsule 00:00: low back [place] 00 pain. May Medical take extra Branch capsule once per day. pregabalin 2022-0 Yes [id number] 1 cap po [facility] 75 mg 1-04 TID prn ity of capsule 00:00: low back [place] 00 pain. May Medical take extra Branch capsule once per day. pregabalin 2023-0 Yes [id number] 1 cap po [facility] 75 mg 1-04 TID prn ity of capsule 00:00: low back [place] 00 pain. May Medical take extra Branch capsule once per day. pregabalin 2023-0 Yes [id number] 1 cap po [facility] 75 mg 1-04 TID prn ity of capsule 00:00: low back [place] 00 pain. May Medical take extra Branch capsule once per day. pregabalin 2023-0 Yes [id number] 1 cap po [facility] 75 mg 1-04 TID prn ity of capsule 00:00: low back [place] 00 pain. May Medical take extra Branch capsule once per day. pregabalin 2023-0 Yes [id number] 1 cap po [facility] 75 mg 1-04 TID prn ity of capsule 00:00: low back [place] 00 pain. May Medical take extra Branch capsule once per day. pregabalin 2023-0 Yes [id number] 1 cap po [facility] 75 mg 1-04 TID prn ity of capsule 00:00: low back [place] 00 pain. May Medical take extra Branch capsule once per day. pregabalin 2023-0 Yes [id number] 1 cap po [facility] 75 mg 1-04 TID prn ity of capsule 00:00: low back [place] 00 pain. May Medical take extra Branch capsule once per day. pregabalin 2023-0 Yes [id number] 1 cap po [facility] 75 mg 1-04 TID prn ity of capsule 00:00: low back [place] 00 pain. May Medical take extra Branch capsule once per day. pregabalin 2023-0 Yes [id number] 1 cap po [facility] 75 mg 1-04 TID prn ity of capsule 00:00: low back [place] 00 pain. May Medical take extra Branch capsule once per day. pregabalin 2023-0 Yes [id number] 1 cap po [facility] 75 mg 1-04 TID prn ity of capsule 00:00: low back [place] 00 pain. May Medical take extra Branch capsule once per day. pregabalin 2023-0 Yes [id number] 1 cap po [facility] 75 mg 1-04 TID prn ity of capsule 00:00: low back [place] 00 pain. May Medical take extra Branch capsule once per day. pregabalin 2023-0 Yes [id number] 1 cap po [facility] 75 mg 1-04 TID prn ity of capsule 00:00: low back [place] 00 pain. May Medical take extra Branch capsule once per day. pregabalin 2023-0 Yes [id number] 1 cap po [facility] 75 mg 1-04 TID prn ity of capsule 00:00: low back [place] 00 pain. May Medical take extra Branch capsule once per day. pregabalin 2023-0 Yes [id number] 1 cap po [facility] 75 mg 1-04 TID prn ity of capsule 00:00: low back [place] 00 pain. May Medical take extra Branch capsule once per day. pregabalin 2023-0 Yes [id number] 1 cap po [facility] 75 mg 1-04 TID prn ity of capsule 00:00: low back [place] 00 pain. May Medical take extra Branch capsule once per day. pregabalin 3-0 Yes [id number] 1 cap po [facility] 75 mg 1-04 TID prn ity of capsule 00:00: low back [place] 00 pain. May Medical take extra Branch capsule once per day. pregabalin 2023-0 Yes [id number] 1 cap po [facility] 75 mg 1-04 TID prn ity of capsule 00:00: low back [place] 00 pain. May Medical take extra Branch capsule once per day. pregabalin 3-0 Yes [id number] 1 cap po [facility] 75 mg 1-04 TID prn ity of capsule 00:00: low back [place] 00 pain. May Medical take extra Branch capsule once per day. pregabalin 2023-0 Yes [id number] 1 cap po [facility] 75 mg 1-04 TID prn ity of capsule 00:00: low back [place] 00 pain. May Medical take extra Branch capsule once per day. pregabalin 2023-0 Yes [id number] 1 cap po [facility] 75 mg 1-04 TID prn ity of capsule 00:00: low back [place] 00 pain. May Medical take extra Branch capsule once per day. pregabalin 2023-0 Yes [id number] 1 cap po [facility] 75 mg 1-04 TID prn ity of capsule 00:00: low back [place] 00 pain. May Medical take extra Branch capsule once per day. pregabalin 2023-0 Yes [id number] 1 cap po [facility] 75 mg 1-04 TID prn ity of capsule 00:00: low back [place] 00 pain. May Medical take extra Branch capsule once per day. pregabalin 2023-0 Yes [id number] 1 cap po [facility] 75 mg 1-04 TID prn ity of capsule 00:00: low back [place] 00 pain. May Medical take extra Branch capsule once per day. pregabalin 2023-0 Yes [id number] 1 cap po [facility] 75 mg 1-04 TID prn ity of capsule 00:00: low back [place] 00 pain. May Medical take extra Branch capsule once per day. pregabalin 2023-0 Yes [id number] 1 cap po [facility] 75 mg 1-04 TID prn ity of capsule 00:00: low back [place] 00 pain. May Medical take extra Branch capsule once per day. pregabalin 2023-0 Yes [id number] 1 cap po [facility] 75 mg 1-04 TID prn ity of capsule 00:00: low back [place] 00 pain. May Medical take extra Branch capsule once per day. pregabalin 2023-0 Yes [id number] 1 cap po [facility] 75 mg 1-04 TID prn ity of capsule 00:00: low back [place] 00 pain. May Medical take extra Branch capsule once per day. pregabalin 2023-0 Yes [id number] 1 cap po [facility] 75 mg 1-04 TID prn ity of capsule 00:00: low back [place] 00 pain. May Medical take extra Branch capsule once per day. pregabalin 2023-0 Yes [id number] 1 cap po [facility] 75 mg 1-04 TID prn ity of capsule 00:00: low back [place] 00 pain. May Medical take extra Branch capsule once per day. pregabalin 2023-0 Yes [id number] 1 cap po [facility] 75 mg 1-04 TID prn ity of capsule 00:00: low back [place] 00 pain. May Medical take extra Branch capsule once per day. pregabalin 2023-0 Yes [id number] 1 cap po [facility] 75 mg 1-04 TID prn ity of capsule 00:00: low back [place] 00 pain. May Medical take extra Branch capsule once per day. pregabalin 2023-0 Yes [id number] 1 cap po [facility] 75 mg 1-04 TID prn ity of capsule 00:00: low back [place] 00 pain. May Medical take extra Branch capsule once per day. pregabalin 2023-0 Yes [id number] 1 cap po [facility] 75 mg 1-04 TID prn ity of capsule 00:00: low back [place] 00 pain. May Medical take extra Branch capsule once per day. pregabalin 2023-0 Yes [id number] 1 cap po [facility] 75 mg 1-04 TID prn ity of capsule 00:00: low back [place] 00 pain. May Medical take extra Branch capsule once per day. pregabalin 2023-0 Yes [id number] 1 cap po [facility] 75 mg 1-04 TID prn ity of capsule 00:00: low back [place] 00 pain. May Medical take extra Branch capsule once per day. pregabalin 2023-0 Yes [id number] 1 cap po [facility] 75 mg 1-04 TID prn ity of capsule 00:00: low back [place] 00 pain. May Medical take extra Branch capsule once per day. pregabalin 2023-0 Yes [id number] 1 cap po [facility] 75 mg 1-04 TID prn ity of capsule 00:00: low back [place] 00 pain. May Medical take extra Branch capsule once per day. pregabalin 2023-0 Yes [id number] 1 cap po [facility] 75 mg 1-04 TID prn ity of capsule 00:00: low back [place] 00 pain. May Medical take extra Branch capsule once per day. pregabalin 2023-0 Yes [id number] 1 cap po [facility] 75 mg 1-04 TID prn ity of capsule 00:00: low back [place] 00 pain. May Medical take extra Branch capsule once per day. pregabalin 2023-0 Yes [id number] 1 cap po [facility] 75 mg 1-04 TID prn ity of capsule 00:00: low back [place] 00 pain. May Medical take extra Branch capsule once per day. pregabalin 2023-0 Yes [id number] 1 cap po [facility] 75 mg 1-04 TID prn ity of capsule 00:00: low back [place] 00 pain. May Medical take extra Branch capsule once per day. pregabalin 2023-0 Yes [id number] 1 cap po [facility] 75 mg 1-04 TID prn ity of capsule 00:00: low back [place] 00 pain. May Medical take extra Branch capsule once per day. pregabalin 2023-0 Yes [id number] 1 cap po [facility] 75 mg 1-04 TID prn ity of capsule 00:00: low back [place] 00 pain. May Medical take extra Branch capsule once per day. pregabalin 2023-0 Yes [id number] 1 cap po [facility] 75 mg 1-04 TID prn ity of capsule 00:00: low back [place] 00 pain. May Medical take extra Branch capsule once per day. pregabalin 2023-0 Yes [id number] 1 cap po [facility] 75 mg 1-04 TID prn ity of capsule 00:00: low back [place] 00 pain. May Medical take extra Branch capsule once per day. pregabalin 2023-0 Yes [id number] 1 cap po [facility] 75 mg 1-04 TID prn ity of capsule 00:00: low back [place] 00 pain. May Medical take extra Branch capsule once per day. pregabalin 2023-0 Yes [id number] 1 cap po [facility] 75 mg 1-04 TID prn ity of capsule 00:00: low back [place] 00 pain. May Medical take extra Branch capsule once per day. pregabalin 2023-0 Yes [id number] 1 cap po [facility] 75 mg 1-04 TID prn ity of capsule 00:00: low back [place] 00 pain. May Medical take extra Branch capsule once per day. pregabalin 2023-0 Yes [id number] 1 cap po [facility] 75 mg 1-04 TID prn ity of capsule 00:00: low back [place] 00 pain. May Medical take extra Branch capsule once per day. pregabalin 2023-0 Yes [id number] 1 cap po [facility] 75 mg 1-04 TID prn ity of capsule 00:00: low back [place] 00 pain. May Medical take extra Branch capsule once per day. pregabalin 2023-0 Yes [id number] 1 cap po [facility] 75 mg 1-04 TID prn ity of capsule 00:00: low back [place] 00 pain. May Medical take extra Branch capsule once per day. pregabalin 2023-0 Yes [id number] 1 cap po [facility] 75 mg 1-04 TID prn ity of capsule 00:00: low back [place] 00 pain. May Medical take extra Branch capsule once per day. pregabalin 2022-0 Yes [id number] 1 cap po [facility] 75 mg 1-04 TID prn ity of capsule 00:00: low back [place] 00 pain. May Medical take extra Branch capsule once per day. pregabalin 2022-0 Yes [id number] 1 cap po [facility] 75 mg 1-04 TID prn ity of capsule 00:00: low back [place] 00 pain. May Medical take extra Branch capsule once per day. pregabalin 2022-0 Yes [id number] 1 cap po [facility] 75 mg 1-04 TID prn ity of capsule 00:00: low back [place] 00 pain. May Medical take extra Branch capsule once per day. pregabalin 2022-0 Yes [id number] 1 cap po [facility] 75 mg 1-04 TID prn ity of capsule 00:00: low back [place] 00 pain. May Medical take extra Branch capsule once per day. pregabalin 2022-0 Yes [id number] 1 cap po [facility] 75 mg 1-04 TID prn ity of capsule 00:00: low back [place] 00 pain. May Medical take extra Branch capsule once per day. pantoprazol 2021-06- No 40mg Take 40 mg [facility] e 40 mg EC 08-0608 by mouth ity of tablet 00:00: 00:00 in the [place] 00 :00 morning Medical and 40 mg Branch in the evening. pantoprazol 2021-06- No 40mg Take 40 mg [facility] e 40 mg EC 08-06 by mouth ity of tablet 00:00: 00:00 in the [place] 00 :00 morning Medical and 40 mg Branch in the evening. pantoprazol 2021-06- No 40mg Take 40 mg [facility] e 40 mg EC 08-0608 by mouth ity of tablet 00:00: 00:00 in the [place] 00 :00 morning Medical and 40 mg Branch in the evening. methocarbam 2021-06 Yes [id number] 750mg Take 1 [facility] oL 750 mg 2-15 tablet by ity o f tablet 00:00: mouth 4 [place] 00 (four) Medical times Branch daily as needed (muscle spasm, low back pain). For low back pain, muscle spasm. Alternate with cyclobenza manasa pregabalin 2021-06 Yes [id number] 1-2 cap po [facility] 75 mg 2-15 TID prn ity of capsule 00:00: low back [place] 00 pain Medical Branch lidocaine 2021-06 Yes [id number] 3{patch Apply 3 [facility] HCL 4 % 2-15 } Patches to ity of PtMd 00:00: area(s) as [place] 00 needed Medical (pain). Branch Apply up to 3 patches to painful areas daily as needed. 12 hours on 12 hours off. cyclobenzap 2021-06 Yes [id number] 1/2 to 1 [facility] rine 10 mg 2-15 tab po TID ity of tablet 00:00: prn muscle [place] 00 spasms, Medical low back Branch pain. Alternate with methocarba mol methocarbam 2021-06 Yes [id number] 750mg Take 1 [facility] oL 750 mg 2-15 tablet by ity o f tablet 00:00: mouth 4 00 (four) Medical times Branch daily as needed (muscle spasm, low back pain). For low back pain, muscle spasm. Alternate with cyclobenza manasa pregabalin 2021-06 Yes [id number] 1-2 cap po [facility] 75 mg 2-15 TID prn ity of capsule 00:00: low back [place] 00 pain Medical Branch lidocaine 2021-06 Yes [id number] 3{patch Apply 3 [facility] HCL 4 % 2-15 } Patches to ity of PtMd 00:00: area(s) as [place] 00 needed Medical (pain). Branch Apply up to 3 patches to painful areas daily as needed. 12 hours on 12 hours off. cyclobenzap 2021-06 Yes [id number] 12 to 1 [facility] rine 10 mg 2-15 tab po TID ity of tablet 00:00: prn muscle [place] 00 spasms, Medical low back Branch pain. Alternate with methocarba mol methocarbam 2021-06 Yes [id number] 750mg Take 1 [facility] oL 750 mg 2-15 tablet by ity o f tablet 00:00: mouth 4 [place] 00 (four) Medical times Branch daily as needed (muscle spasm, low back pain). For low back pain, muscle spasm. Alternate with cyclobenza manasa pregabalin 2021-06 Yes [id number] 1-2 cap po [facility] 75 mg 2-15 TID prn ity of capsule 00:00: low back [place] 00 pain Medical Branch lidocaine 2021-06 Yes [id number] 3{patch Apply 3 [facility] HCL 4 % 2-15 } Patches to ity of PtMd 00:00: area(s) as [place] 00 needed Medical (pain). Branch Apply up to 3 patches to painful areas daily as needed. 12 hours on 12 hours off. cyclobenzap 2021-06 Yes [id number] 1/2 to 1 [facility] rine 10 mg 2-15 tab po TID ity of tablet 00:00: prn muscle [place] 00 spasms, Medical low back Branch pain. Alternate with methocarba mol methocarbam 2021-06 Yes [id number] 750mg Take 1 [facility] oL 750 mg 2-15 tablet by ity o f tablet 00:00: mouth 4 (four) Medical times Branch daily as needed (muscle spasm, low back pain). For low back pain, muscle spasm. Alternate with cyclobenza manasa pregabalin 2021-06 Yes [id number] 1-2 cap po [facility] 75 mg 2-15 TID prn ity of capsule 00:00: low back [place] 00 pain Medical Branch lidocaine 2021-06 Yes [id number] 3{patch Apply 3 [facility] HCL 4 % 2-15 } Patches to ity of PtMd 00:00: area(s) as [place] 00 needed Medical (pain). Branch Apply up to 3 patches to painful areas daily as needed. 12 hours on 12 hours off. cyclobenzap 2021-06 Yes [id number] 1/2 to 1 [facility] rine 10 mg 2-15 tab po TID ity of tablet 00:00: prn muscle [place] 00 spasms, Medical low back Branch pain. Alternate with methocarba mol methocarbam 2021-06 Yes [id number] 750mg Take 1 [facility] oL 750 mg 2-15 tablet by ity o f tablet 00:00: mouth 4 (four) Medical times Branch daily as needed (muscle spasm, low back pain). For low back pain, muscle spasm. Alternate with cyclobenza manasa pregabalin 2021-06 Yes [id number] 1-2 cap po [facility] 75 mg 2-15 TID prn ity of capsule 00:00: low back [place] 00 pain Medical Branch lidocaine 2021-06 Yes [id number] 3{patch Apply 3 [facility] HCL 4 % 2-15 } Patches to ity of PtMd 00:00: area(s) as [place] 00 needed Medical (pain). Branch Apply up to 3 patches to painful areas daily as needed. 12 hours on 12 hours off. cyclobenzap 2021-06 Yes [id number] 1/2 to 1 [facility] rine 10 mg 2-15 tab po TID ity of tablet 00:00: prn muscle [place] 00 spasms, Medical low back Branch pain. Alternate with methocarba mol methocarbam 2021-06 Yes [id number] 750mg Take 1 [facility] oL 750 mg 2-15 tablet by ity o f tablet 00:00: mouth 4 [place] 00 (four) Medical times Branch daily as needed (muscle spasm, low back pain). For low back pain, muscle spasm. Alternate with cyclobenza manasa pregabalin 2021-06 Yes [id number] 1-2 cap po [facility] 75 mg 2-15 TID prn ity of capsule 00:00: low back [place] 00 pain Medical Branch lidocaine 2021-06 Yes [id number] 3{patch Apply 3 [facility] HCL 4 % 2-15 } Patches to ity of PtMd 00:00: area(s) as [place] 00 needed Medical (pain). Branch Apply up to 3 patches to painful areas daily as needed. 12 hours on 12 hours off. cyclobenzap 2021-06 Yes [id number] /2 to 1 [facility] rine 10 mg 2-15 tab po TID ity of tablet 00:00: prn muscle [place] 00 spasms, Medical low back Branch pain. Alternate with methocarba mol methocarbam 2021-06 Yes [id number] 750mg Take 1 [facility] oL 750 mg 2-15 tablet by ity o f tablet 00:00: mouth 4 [place] 00 (four) Medical times Branch daily as needed (muscle spasm, low back pain). For low back pain, muscle spasm. Alternate with cyclobenza manasa lidocaine 2021-06 Yes [id number] 3{patch Apply 3 [facility] HCL 4 % 2-15 } Patches to ity of PtMd 00:00: area(s) as [place] 00 needed Medical (pain). Branch Apply up to 3 patches to painful areas daily as needed. 12 hours on 12 hours off. cyclobenzap 2021-06 Yes [id number] /2 to 1 [facility] rine 10 mg 2-15 tab po TID ity of tablet 00:00: prn muscle [place] 00 spasms, Medical low back Branch pain. Alternate with methocarba mol methocarbam 2021-06 Yes [id number] 750mg Take 1 [facility] oL 750 mg 2-15 tablet by ity o f tablet 00:00: mouth 4 [place] 00 (four) Medical times Branch daily as needed (muscle spasm, low back pain). For low back pain, muscle spasm. Alternate with cyclobenza manasa lidocaine 2021-06 Yes [id number] 3{patch Apply 3 [facility] HCL 4 % 2-15 } Patches to ity of PtMd 00:00: area(s) as [place] 00 needed Medical (pain). Branch Apply up to 3 patches to painful areas daily as needed. 12 hours on 12 hours off. cyclobenzap 2021-06 Yes [id number] 1/2 to 1 [facility] rine 10 mg 2-15 tab po TID ity of tablet 00:00: prn muscle [place] 00 spasms, Medical low back Branch pain. Alternate with methocarba mol methocarbam 2021-06 Yes [id number] 750mg Take 1 [facility] oL 750 mg 2-15 tablet by ity o f tablet 00:00: mouth 4 00 (four) Medical times Branch daily as needed (muscle spasm, low back pain). For low back pain, muscle spasm. Alternate with cyclobenza manasa lidocaine 2021-06 Yes [id number] 3{patch Apply 3 [facility] HCL 4 % 2-15 } Patches to ity of PtMd 00:00: area(s) as [place] 00 needed Medical (pain). Branch Apply up to 3 patches to painful areas daily as needed. 12 hours on 12 hours off. cyclobenzap 2021-06 Yes [id number] /2 to 1 [facility] rine 10 mg 2-15 tab po TID ity of tablet 00:00: prn muscle [place] 00 spasms, Medical low back Branch pain. Alternate with methocarba mol methocarbam 2021-06 Yes [id number] 750mg Take 1 [facility] oL 750 mg 2-15 tablet by ity o f tablet 00:00: mouth 4 [place] 00 (four) Medical times Branch daily as needed (muscle spasm, low back pain). For low back pain, muscle spasm. Alternate with cyclobenza manasa lidocaine 2021-06 Yes [id number] 3{patch Apply 3 [facility] HCL 4 % 2-15 } Patches to ity of PtMd 00:00: area(s) as [place] 00 needed Medical (pain). Branch Apply up to 3 patches to painful areas daily as needed. 12 hours on 12 hours off. cyclobenzap 2021-06 Yes [id number] 1/2 to 1 [facility] rine 10 mg 2-15 tab po TID ity of tablet 00:00: prn muscle [place] 00 spasms, Medical low back Branch pain. Alternate with methocarba mol methocarbam 2021-06 Yes [id number] 750mg Take 1 [facility] oL 750 mg 2-15 tablet by ity o f tablet 00:00: mouth 4 [place] 00 (four) Medical times Branch daily as needed (muscle spasm, low back pain). For low back pain, muscle spasm. Alternate with cyclobenza manasa lidocaine 2021-06 Yes [id number] 3{patch Apply 3 [facility] HCL 4 % 2-15 } Patches to ity of PtMd 00:00: area(s) as [place] 00 needed Medical (pain). Branch Apply up to 3 patches to painful areas daily as needed. 12 hours on 12 hours off. cyclobenzap 2021-06 Yes [id number] 1/2 to 1 [facility] rine 10 mg 2-15 tab po TID ity of tablet 00:00: prn muscle [place] 00 spasms, Medical low back Branch pain. Alternate with methocarba mol methocarbam 2021-06 Yes [id number] 750mg Take 1 [facility] oL 750 mg 2-15 tablet by ity o f tablet 00:00: mouth 4 [place] 00 (four) Medical times Branch daily as needed (muscle spasm, low back pain). For low back pain, muscle spasm. Alternate with cyclobenza manasa lidocaine 2021-06 Yes [id number] 3{patch Apply 3 [facility] HCL 4 % 2-15 } Patches to ity of PtMd 00:00: area(s) as [place] 00 needed Medical (pain). Branch Apply up to 3 patches to painful areas daily as needed. 12 hours on 12 hours off. cyclobenzap 2021-06 Yes [id number] 1/2 to 1 [facility] rine 10 mg 2-15 tab po TID ity of tablet 00:00: prn muscle [place] 00 spasms, Medical low back Branch pain. Alternate with methocarba mol methocarbam 2021-06 Yes [id number] 750mg Take 1 [facility] oL 750 mg 2-15 tablet by ity o f tablet 00:00: mouth 4 [place] (four) Medical times Branch daily as needed (muscle spasm, low back pain). For low back pain, muscle spasm. Alternate with cyclobenza manasa lidocaine 2021-06 Yes [id number] 3{patch Apply 3 [facility] HCL 4 % 2-15 } Patches to ity of PtMd 00:00: area(s) as [place] 00 needed Medical (pain). Branch Apply up to 3 patches to painful areas daily as needed. 12 hours on 12 hours off. cyclobenzap 2021-06 Yes [id number] 1/2 to 1 [facility] rine 10 mg 2-15 tab po TID ity of tablet 00:00: prn muscle [place] 00 spasms, Medical low back Branch pain. Alternate with methocarba mol methocarbam 2021-06 Yes [id number] 750mg Take 1 [facility] oL 750 mg 2-15 tablet by ity o f tablet 00:00: mouth 4 (four) Medical times Branch daily as needed (muscle spasm, low back pain). For low back pain, muscle spasm. Alternate with cyclobenza manasa lidocaine 2021-06 Yes [id number] 3{patch Apply 3 [facility] HCL 4 % 2-15 } Patches to ity of PtMd 00:00: area(s) as [place] 00 needed Medical (pain). Branch Apply up to 3 patches to painful areas daily as needed. 12 hours on 12 hours off. cyclobenzap 2021-06 Yes [id number] 1/2 to 1 [facility] rine 10 mg 2-15 tab po TID ity of tablet 00:00: prn muscle [place] 00 spasms, Medical low back Branch pain. Alternate with methocarba mol methocarbam 2021-06 Yes [id number] 750mg Take 1 [facility] oL 750 mg 2-15 tablet by ity o f tablet 00:00: mouth 4 00 (four) Medical times Branch daily as needed (muscle spasm, low back pain). For low back pain, muscle spasm. Alternate with cyclobenza manasa lidocaine 2021-06 Yes [id number] 3{patch Apply 3 [facility] HCL 4 % 2-15 } Patches to ity of PtMd 00:00: area(s) as [place] 00 needed Medical (pain). Branch Apply up to 3 patches to painful areas daily as needed. 12 hours on 12 hours off. cyclobenzap 2021-06 Yes [id number] /2 to 1 [facility] rine 10 mg 2-15 tab po TID ity of tablet 00:00: prn muscle [place] 00 spasms, Medical low back Branch pain. Alternate with methocarba mol methocarbam 2021-06 Yes [id number] 750mg Take 1 [facility] oL 750 mg 2-15 tablet by ity o f tablet 00:00: mouth 4 [place] 00 (four) Medical times Branch daily as needed (muscle spasm, low back pain). For low back pain, muscle spasm. Alternate with cyclobenza manasa lidocaine 2021-06 Yes [id number] 3{patch Apply 3 [facility] HCL 4 % 2-15 } Patches to ity of PtMd 00:00: area(s) as [place] 00 needed Medical (pain). Branch Apply up to 3 patches to painful areas daily as needed. 12 hours on 12 hours off. cyclobenzap 2021-06 Yes [id number] /2 to 1 [facility] rine 10 mg 2-15 tab po TID ity of tablet 00:00: prn muscle [place] 00 spasms, Medical low back Branch pain. Alternate with methocarba mol methocarbam 2021-06 Yes [id number] 750mg Take 1 [facility] o[facility] 750 mg 2-15 tablet by [facility]y o f tablet 00:00: mouth 4 [place] 00 (four) Medical times Branch daily as needed (muscle spasm, low back pain). For low back pain, muscle spasm. Alternate with cyclobenza manasa lidocaine 2021-06 Yes [id number] 3{patch Apply 3 [facility] HCL 4 % 2-15 } Patches to [facility] of [facility] 00:00: area(s) as [place] 00 needed Medical (pain). Branch Apply up to 3 patches to painful areas daily as needed. 12 hours on 12 hours off. cyclobenzap 2021-06 Yes [id number] 1/2 to 1 [facility] rine 10 mg 2-15 tab po TID ity of tablet 00:00: prn muscle [place] 00 spasms, Medical low back Branch pain. Alternate with methocarba mol methocarbam 2021-06 Yes [id number] 750mg Take 1 [facility] oL 750 mg 2-15 tablet by [facility] o f tablet 00:00: mouth 4 [place] 00 (four) Medical times Branch daily as needed (muscle spasm, low back pain). For low back pain, muscle spasm. Alternate with cyclobenza manasa lidocaine 2021-06 Yes [id number] 3{patch Apply 3 [facility] HCL 4 % 2-15 } Patches to [facility] 00:00: area(s) as [place] 00 needed Medical (pain). Branch Apply up to 3 patches to painful areas daily as needed. 12 hours on 12 hours off. cyclobenzap 2021-06 Yes [id number] 1/2 to 1 [facility] rine 10 mg 2-15 tab po TID it[facility] of tablet 00:00: prn muscle [place] 00 spasms, Medical low back Branch pain. Alternate with methocarba mol methocarbam 2021-06 Yes [id number] 750mg Take 1 [facility] oL 750 mg 2-15 tablet by [facility] o f tablet 00:00: mouth 4 (four) Medical times Branch daily as needed (muscle spasm, low back pain). For low back pain, muscle spasm. Alternate with cyclobenza manasa lidocaine 2021-06 Yes [id number] 3{patch Apply 3 [facility] HCL 4 % 2-15 } Patches to [facility] of [facility] 00:00: area(s) as [place] 00 needed Medical (pain). Branch Apply up to 3 patches to painful areas daily as needed. 12 hours on 12 hours off. cyclobenzap 2021-06 Yes [id number] 1/2 to 1 [facility] rine 10 mg 2-15 tab po TID it[facility] of tablet 00:00: prn muscle [place] 00 spasms, Medical low back Branch pain. Alternate with methocarba mol methocarbam 2021-06 Yes [id number] 750mg Take 1 [facility] o[facility] 750 mg 2-15 tablet by [facility] o f tablet 00:00: mouth 4 00 (four) Medical times Branch daily as needed (muscle spasm, low back pain). For low back pain, muscle spasm. Alternate with cyclobenza manasa lidocaine 2021-06 Yes [id number] 3{patch Apply 3 [facility] HCL 4 % 2-15 } Patches to [facility] of [facility] 00:00: area(s) as [place] 00 needed Medical (pain). Branch Apply up to 3 patches to painful areas daily as needed. 12 hours on 12 hours off. cyclobenzap 2021-06 Yes [id number] 1/2 to 1 [facility] rine 10 mg 2-15 tab po TID [facility] of tablet 00:00: prn muscle [place] 00 spasms, Medical low back Branch pain. Alternate with methocarba mol methocarbam 2021-06 Yes [id number] 750mg Take 1 [facility] o[facility] 750 mg 2-15 tablet by [facility] o f tablet 00:00: mouth 4 [place] 00 (four) Medical times Branch daily as needed (muscle spasm, low back pain). For low back pain, muscle spasm. Alternate with cyclobenza manasa lidocaine 2021-06 Yes [id number] 3{patch Apply 3 [facility] HCL 4 % 2-15 } Patches to [facility] of [facility] 00:00: area(s) as [place] 00 needed Medical (pain). Branch Apply up to 3 patches to painful areas daily as needed. 12 hours on 12 hours off. cyclobenzap 2021-06 Yes [id number] /2 to 1 [facility] rine 10 mg 2-15 tab po TID it[facility] of tablet 00:00: prn muscle [place] 00 spasms, Medical low back Branch pain. Alternate with methocarba mol methocarbam 2021-06 Yes [id number] 750mg Take 1 [facility] o[facility] 750 mg 2-15 tablet by [facility] o f tablet 00:00: mouth 4 [place] 00 (four) Medical times Branch daily as needed (muscle spasm, low back pain). For low back pain, muscle spasm. Alternate with cyclobenza manasa lidocaine 2021-06 Yes [id number] 3{patch Apply 3 [facility] HCL 4 % 2-15 } Patches to [facility] of [facility] 00:00: area(s) as [place] 00 needed Medical (pain). Branch Apply up to 3 patches to painful areas daily as needed. 12 hours on 12 hours off. cyclobenzap 2021-06 Yes [id number] /2 to 1 [facility] rine 10 mg 2-15 tab po TID it[facility] of tablet 00:00: prn muscle [place] 00 spasms, Medical low back Branch pain. Alternate with methocarba mol methocarbam 2021-06 Yes [id number] 750mg Take 1 [facility] o[facility] 750 mg 2-15 tablet by [facility] o f tablet 00:00: mouth 4 [place] 00 (four) Medical times Branch daily as needed (muscle spasm, low back pain). For low back pain, muscle spasm. Alternate with cyclobenza manasa lidocaine 2021-06 Yes [id number] 3{patch Apply 3 [facility] HCL 4 % 2-15 } Patches to [facility] of [facility] 00:00: area(s) as [place] 00 needed Medical (pain). Branch Apply up to 3 patches to painful areas daily as needed. 12 hours on 12 hours off. cyclobenzap 2021-06 Yes [id number] 2 to 1 [facility] rine 10 mg 2-15 tab po TID it[facility] of tablet 00:00: prn muscle [place] 00 spasms, Medical low back Branch pain. Alternate with methocarba mol methocarbam 2021-06 Yes [id number] 750mg Take 1 [facility] o[facility] 750 mg 2-15 tablet by [facility] o f tablet 00:00: mouth 4 [place] 00 (four) Medical times Branch daily as needed (muscle spasm, low back pain). For low back pain, muscle spasm. Alternate with cyclobenza manasa lidocaine 2021-06 Yes [id number] 3{patch Apply 3 [facility] HCL 4 % 2-15 } Patches to [facility] of [facility] 00:00: area(s) as [place] 00 needed Medical (pain). Branch Apply up to 3 patches to painful areas daily as needed. 12 hours on 12 hours off. cyclobenzap 2021-06 Yes [id number] /2 to 1 [facility] rine 10 mg 2-15 tab po TID it[facility] of tablet 00:00: prn muscle [place] 00 spasms, Medical low back Branch pain. Alternate with methocarba mol methocarbam 2021-06 Yes [id number] 750mg Take 1 [facility] o[facility] 750 mg 2-15 tablet by it[facility] o f tablet 00:00: mouth 4 00 (four) Medical times Branch daily as needed (muscle spasm, low back pain). For low back pain, muscle spasm. Alternate with cyclobenza manasa lidocaine 2021-06 Yes [id number] 3{patch Apply 3 [facility] HCL 4 % 2-15 } Patches to [facility] of [facility] 00:00: area(s) as [place] 00 needed Medical (pain). Branch Apply up to 3 patches to painful areas daily as needed. 12 hours on 12 hours off. cyclobenzap 2021-06 Yes [id number] 1/2 to [facility] r[facility] 10 mg 2-15 tab po TID [facility] of tablet 00:00: prn muscle [place] 00 spasms, Medical low back Branch pain. Alternate with methocarba mol methocarbam 2021-06 Yes [id number] 750mg Take 1 [facility] o[facility] 750 mg 2-15 tablet by [facility] o f tablet 00:00: mouth 4 [place] 00 (four) Medical times Branch daily as needed (muscle spasm, low back pain). For low back pain, muscle spasm. Alternate with cyclobenza manasa lidocaine 2021-06 Yes [id number] 3{patch Apply 3 [facility] HCL 4 % 2-15 } Patches to [facility] of [facility] 00:00: area(s) as [place] 00 needed Medical (pain). Branch Apply up to 3 patches to painful areas daily as needed. 12 hours on 12 hours off. cyclobenzap 2021-06 Yes [id number] /2 to [facility] r[facility] 10 mg 2-15 tab po TID [facility] of tablet 00:00: prn muscle [place] 00 spasms, Medical low back Branch pain. Alternate with methocarba mol methocarbam 2021-06 Yes [id number] 750mg Take 1 [facility] o[facility] 750 mg 2-15 tablet by it[facility] o f tablet 00:00: mouth 4 (four) Medical times Branch daily as needed (muscle spasm, low back pain). For low back pain, muscle spasm. Alternate with cyclobenza manasa lidocaine 2021-06 Yes [id number] 3{patch Apply 3 [facility] HCL 4 % 2-15 } Patches to [facility] of [facility] 00:00: area(s) as [place] 00 needed Medical (pain). Branch Apply up to 3 patches to painful areas daily as needed. 12 hours on 12 hours off. cyclobenzap 2021-06 Yes [id number] /2 to 1 [facility] r[facility] 10 mg 2-15 tab po TID it[facility] of tablet 00:00: prn muscle [place] 00 spasms, Medical low back Branch pain. Alternate with methocarba mol methocarbam 2021-06 Yes [id number] 750mg Take 1 [facility] o[facility] 750 mg 2-15 tablet by it[facility] o f tablet 00:00: mouth 4 00 (four) Medical times Branch daily as needed (muscle spasm, low back pain). For low back pain, muscle spasm. Alternate with cyclobenza manasa lidocaine 2021-06 Yes [id number] 3{patch Apply 3 [facility] HCL 4 % 2-15 } Patches to [facility] of [facility] 00:00: area(s) as [place] 00 needed Medical (pain). Branch Apply up to 3 patches to painful areas daily as needed. 12 hours on 12 hours off. cyclobenzap 2021-06 Yes [id number] 1/2 to 1 [facility] r[facility] 10 mg 2-15 tab po TID it[facility] of tablet 00:00: prn muscle [place] 00 spasms, Medical low back Branch pain. Alternate with methocarba mol methocarbam 2021-06 Yes [id number] 750mg Take 1 [facility] o[facility] 750 mg 2-15 tablet by it[facility] o f tablet 00:00: mouth 4 [place] 00 (four) Medical times Branch daily as needed (muscle spasm, low back pain). For low back pain, muscle spasm. Alternate with cyclobenza manasa lidocaine 2021-06 Yes [id number] 3{patch Apply 3 [facility] HCL 4 % 2-15 } Patches to [facility] of [facility] 00:00: area(s) as [place] 00 needed Medical (pain). Branch Apply up to 3 patches to painful areas daily as needed. 12 hours on 12 hours off. cyclobenzap 2021-06 Yes [id number] 1/2 to 1 [facility] r[facility] 10 mg 2-15 tab po TID ity of tablet 00:00: prn muscle [place] 00 spasms, Medical low back Branch pain. Alternate with methocarba mol methocarbam 2021-06 Yes [id number] 750mg Take 1 [facility] o[facility] 750 mg 2-15 tablet by ity o f tablet 00:00: mouth 4 [place] 00 (four) Medical times Branch daily as needed (muscle spasm, low back pain). For low back pain, muscle spasm. Alternate with cyclobenza manasa lidocaine 2021-06 Yes [id number] 3{patch Apply 3 [facility] HCL 4 % 2-15 } Patches to [facility] of [facility] 00:00: area(s) as [place] 00 needed Medical (pain). Branch Apply up to 3 patches to painful areas daily as needed. 12 hours on 12 hours off. cyclobenzap 2021-06 Yes [id number] 1/2 to 1 [facility] rine 10 mg 2-15 tab po TID ity of tablet 00:00: prn muscle [place] 00 spasms, Medical low back Branch pain. Alternate with methocarba mol methocarbam 2021-06 Yes [id number] 750mg Take 1 [facility] oL 750 mg 2-15 tablet by ity o f tablet 00:00: mouth 4 [place] 00 (four) Medical times Branch daily as needed (muscle spasm, low back pain). For low back pain, muscle spasm. Alternate with cyclobenza manasa lidocaine 2021-06 Yes [id number] 3{patch Apply 3 [facility] HCL 4 % 2-15 } Patches to [facility] of [facility] 00:00: area(s) as [place] 00 needed Medical (pain). Branch Apply up to 3 patches to painful areas daily as needed. 12 hours on 12 hours off. cyclobenzap 2021-06 Yes [id number] 1/2 to 1 [facility] rine 10 mg 2-15 tab po TID ity of tablet 00:00: prn muscle [place] 00 spasms, Medical low back Branch pain. Alternate with methocarba mol methocarbam 2021-06 Yes [id number] 750mg Take 1 [facility] oL 750 mg 2-15 tablet by ity o f tablet 00:00: mouth 4 00 (four) Medical times Branch daily as needed (muscle spasm, low back pain). For low back pain, muscle spasm. Alternate with cyclobenza manasa lidocaine 2021-06 Yes [id number] 3{patch Apply 3 [facility] HCL 4 % 2-15 } Patches to [facility] of [facility] 00:00: area(s) as [place] 00 needed Medical (pain). Branch Apply up to 3 patches to painful areas daily as needed. 12 hours on 12 hours off. cyclobenzap 2021-06 Yes [id number] 1/2 to 1 [facility] rine 10 mg 2-15 tab po TID ity of tablet 00:00: prn muscle [place] 00 spasms, Medical low back Branch pain. Alternate with methocarba mol methocarbam 2021-06 Yes [id number] 750mg Take 1 [facility] oL 750 mg 2-15 tablet by ity o f tablet 00:00: mouth 4 00 (four) Medical times Branch daily as needed (muscle spasm, low back pain). For low back pain, muscle spasm. Alternate with cyclobenza manasa lidocaine 2021-06 Yes [id number] 3{patch Apply 3 [facility] HCL 4 % 2-15 } Patches to [facility] of [facility] 00:00: area(s) as [place] 00 needed Medical (pain). Branch Apply up to 3 patches to painful areas daily as needed. 12 hours on 12 hours off. cyclobenzap 2021-06 Yes [id number] 1/2 to 1 [facility] rine 10 mg 2-15 tab po TID ity of tablet 00:00: prn muscle [place] 00 spasms, Medical low back Branch pain. Alternate with methocarba mol methocarbam 2021-06 Yes [id number] 750mg Take 1 [facility] oL 750 mg 2-15 tablet by ity o f tablet 00:00: mouth 4 [place] 00 (four) Medical times Branch daily as needed (muscle spasm, low back pain). For low back pain, muscle spasm. Alternate with cyclobenza manasa lidocaine 2021-06 Yes [id number] 3{patch Apply 3 [facility] HCL 4 % 2-15 } Patches to [facility] of [facility] 00:00: area(s) as [place] 00 needed Medical (pain). Branch Apply up to 3 patches to painful areas daily as needed. 12 hours on 12 hours off. cyclobenzap 2021-06 Yes [id number] /2 to 1 [facility] rine 10 mg 2-15 tab po TID ity of tablet 00:00: prn muscle [place] 00 spasms, Medical low back Branch pain. Alternate with methocarba mol methocarbam 2021-06 Yes [id number] 750mg Take 1 [facility] oL 750 mg 2-15 tablet by ity o f tablet 00:00: mouth 4 [place] 00 (four) Medical times Branch daily as needed (muscle spasm, low back pain). For low back pain, muscle spasm. Alternate with cyclobenza manasa lidocaine 2021-06 Yes [id number] 3{patch Apply 3 [facility] HCL 4 % 2-15 } Patches to [facility] of [facility] 00:00: area(s) as [place] 00 needed Medical (pain). Branch Apply up to 3 patches to painful areas daily as needed. 12 hours on 12 hours off. cyclobenzap 2021-06 Yes [id number] 1/2 to 1 [facility] rine 10 mg 2-15 tab po TID ity of tablet 00:00: prn muscle [place] 00 spasms, Medical low back Branch pain. Alternate with methocarba mol methocarbam 2021-06 Yes [id number] 750mg Take 1 [facility] oL 750 mg 2-15 tablet by ity o f tablet 00:00: mouth 4 (four) Medical times Branch daily as needed (muscle spasm, low back pain). For low back pain, muscle spasm. Alternate with cyclobenza manasa lidocaine 2021-06 Yes [id number] 3{patch Apply 3 [facility] HCL 4 % 2-15 } Patches to [facility] of [facility] 00:00: area(s) as [place] 00 needed Medical (pain). Branch Apply up to 3 patches to painful areas daily as needed. 12 hours on 12 hours off. cyclobenzap 2021-06 Yes [id number] 1/2 to 1 [facility] r[facility] 10 mg 2-15 tab po TID ity of tablet 00:00: prn muscle [place] 00 spasms, Medical low back Branch pain. Alternate with methocarba mol methocarbam 2021-06 Yes [id number] 750mg Take 1 [facility] oL 750 mg 2-15 tablet by ity o f tablet 00:00: mouth 4 (four) Medical times Branch daily as needed (muscle spasm, low back pain). For low back pain, muscle spasm. Alternate with cyclobenza manasa lidocaine 2021-06 Yes [id number] 3{patch Apply 3 [facility] HCL 4 % 2-15 } Patches to it[facility] of [facility] 00:00: area(s) as [place] 00 needed Medical (pain). Branch Apply up to 3 patches to painful areas daily as needed. 12 hours on 12 hours off. cyclobenzap 2021-06 Yes [id number] 1/2 to 1 [facility] rine 10 mg 2-15 tab po TID ity of tablet 00:00: prn muscle [place] 00 spasms, Medical low back Branch pain. Alternate with methocarba mol methocarbam 2021-06 Yes [id number] 750mg Take 1 [facility] oL 750 mg 2-15 tablet by ity o f tablet 00:00: mouth 4 (four) Medical times Branch daily as needed (muscle spasm, low back pain). For low back pain, muscle spasm. Alternate with cyclobenza manasa lidocaine 2021-06 Yes [id number] 3{patch Apply 3 [facility] HCL 4 % 2-15 } Patches to ity of [facility] 00:00: area(s) as [place] 00 needed Medical (pain). Branch Apply up to 3 patches to painful areas daily as needed. 12 hours on 12 hours off. cyclobenzap 2021-06 Yes [id number] 1/2 to 1 [facility] rine 10 mg 2-15 tab po TID ity of tablet 00:00: prn muscle [place] 00 spasms, Medical low back Branch pain. Alternate with methocarba mol methocarbam 2021-06 Yes [id number] 750mg Take 1 [facility] oL 750 mg 2-15 tablet by ity o f tablet 00:00: mouth 4 [place] 00 (four) Medical times Branch daily as needed (muscle spasm, low back pain). For low back pain, muscle spasm. Alternate with cyclobenza manasa lidocaine 2021-06 Yes [id number] 3{patch Apply 3 [facility] HCL 4 % 2-15 } Patches to ity of [facility] 00:00: area(s) as [place] 00 needed Medical (pain). Branch Apply up to 3 patches to painful areas daily as needed. 12 hours on 12 hours off. cyclobenzap 2021-06 Yes [id number] /2 to 1 [facility] rine 10 mg 2-15 tab po TID ity of tablet 00:00: prn muscle [place] 00 spasms, Medical low back Branch pain. Alternate with methocarba mol methocarbam 2021-06 Yes [id number] 750mg Take 1 [facility] oL 750 mg 2-15 tablet by ity o f tablet 00:00: mouth 4 [place] 00 (four) Medical times Branch daily as needed (muscle spasm, low back pain). For low back pain, muscle spasm. Alternate with cyclobenza manasa lidocaine 2021-06 Yes [id number] 3{patch Apply 3 [facility] HCL 4 % 2-15 } Patches to ity of [facility] 00:00: area(s) as [place] 00 needed Medical (pain). Branch Apply up to 3 patches to painful areas daily as needed. 12 hours on 12 hours off. cyclobenzap 2021-06 Yes [id number] 1/2 to 1 [facility] r[facility] 10 mg 2-15 tab po TID ity of tablet 00:00: prn muscle [place] 00 spasms, Medical low back Branch pain. Alternate with methocarba mol methocarbam 2021-06 Yes [id number] 750mg Take 1 [facility] o[facility] 750 mg 2-15 tablet by ity o f tablet 00:00: mouth 4 00 (four) Medical times Branch daily as needed (muscle spasm, low back pain). For low back pain, muscle spasm. Alternate with cyclobenza manasa lidocaine 2021-06 Yes [id number] 3{patch Apply 3 [facility] HCL 4 % 2-15 } Patches to ity of [facility] 00:00: area(s) as [place] 00 needed Medical (pain). Branch Apply up to 3 patches to painful areas daily as needed. 12 hours on 12 hours off. cyclobenzap 2021-06 Yes [id number] 1/2 to 1 [facility] r[facility] 10 mg 2-15 tab po TID ity of tablet 00:00: prn muscle [place] 00 spasms, Medical low back Branch pain. Alternate with methocarba mol methocarbam 2021-06 Yes [id number] 750mg Take 1 [facility] o[facility] 750 mg 2-15 tablet by ity o f tablet 00:00: mouth 4 00 (four) Medical times Branch daily as needed (muscle spasm, low back pain). For low back pain, muscle spasm. Alternate with cyclobenza manasa lidocaine 2021-06 Yes [id number] 3{patch Apply 3 [facility] HCL 4 % 2-15 } Patches to ity of [facility] 00:00: area(s) as [place] 00 needed Medical (pain). Branch Apply up to 3 patches to painful areas daily as needed. 12 hours on 12 hours off. cyclobenzap 2021-06 Yes [id number] 1/2 to 1 [facility] rine 10 mg 2-15 tab po TID ity of tablet 00:00: prn muscle [place] 00 spasms, Medical low back Branch pain. Alternate with methocarba mol methocarbam 2021-06 Yes [id number] 750mg Take 1 [facility] o[facility] 750 mg 2-15 tablet by ity o f tablet 00:00: mouth 4 00 (four) Medical times Branch daily as needed (muscle spasm, low back pain). For low back pain, muscle spasm. Alternate with cyclobenza manasa lidocaine 2021-06 Yes [id number] 3{patch Apply 3 [facility] HCL 4 % 2-15 } Patches to ity of [facility] 00:00: area(s) as [place] 00 needed Medical (pain). Branch Apply up to 3 patches to painful areas daily as needed. 12 hours on 12 hours off. cyclobenzap 2021-06 Yes [id number] 1/2 to 1 [facility] r[facility] 10 mg 2-15 tab po TID ity of tablet 00:00: prn muscle [place] 00 spasms, Medical low back Branch pain. Alternate with methocarba mol methocarbam 2021-06 Yes [id number] 750mg Take 1 [facility] o[facility] 750 mg 2-15 tablet by ity o f tablet 00:00: mouth 4 (four) Medical times Branch daily as needed (muscle spasm, low back pain). For low back pain, muscle spasm. Alternate with cyclobenza manasa lidocaine 2021-06 Yes [id number] 3{patch Apply 3 [facility] HCL 4 % 2-15 } Patches to ity of [facility] 00:00: area(s) as [place] 00 needed Medical (pain). Branch Apply up to 3 patches to painful areas daily as needed. 12 hours on 12 hours off. cyclobenzap 2021-06 Yes [id number] 1/2 to 1 [facility] r[facility] 10 mg 2-15 tab po TID ity of tablet 00:00: prn muscle [place] 00 spasms, Medical low back Branch pain. Alternate with methocarba mol methocarbam 2021-06 Yes [id number] 750mg Take 1 [facility] o[facility] 750 mg 2-15 tablet by ity o f tablet 00:00: mouth 4 (four) Medical times Branch daily as needed (muscle spasm, low back pain). For low back pain, muscle spasm. Alternate with cyclobenza manasa lidocaine 2021-06 Yes [id number] 3{patch Apply 3 [facility] HCL 4 % 2-15 } Patches to ity of [facility] 00:00: area(s) as [place] 00 needed Medical (pain). Branch Apply up to 3 patches to painful areas daily as needed. 12 hours on 12 hours off. cyclobenzap 2021-06 Yes [id number] 1/2 to 1 [facility] r[facility] 10 mg 2-15 tab po TID ity of tablet 00:00: prn muscle [place] 00 spasms, Medical low back Branch pain. Alternate with methocarba mol methocarbam 2021-06 Yes [id number] 750mg Take 1 [facility] o[facility] 750 mg 2-15 tablet by ity o f tablet 00:00: mouth 4 (four) Medical times Branch daily as needed (muscle spasm, low back pain). For low back pain, muscle spasm. Alternate with cyclobenza manasa lidocaine 2021-06 Yes [id number] 3{patch Apply 3 [facility] HCL 4 % 2-15 } Patches to ity of [facility] 00:00: area(s) as [place] 00 needed Medical (pain). Branch Apply up to 3 patches to painful areas daily as needed. 12 hours on 12 hours off. cyclobenzap 2021-06 Yes [id number] 1/2 to 1 [facility] r[facility] 10 mg 2-15 tab po TID ity of tablet 00:00: prn muscle [place] 00 spasms, Medical low back Branch pain. Alternate with methocarba mol methocarbam 2021-06 Yes [id number] 750mg Take 1 [facility] o[facility] 750 mg 2-15 tablet by ity o f tablet 00:00: mouth 4 [place] 00 (four) Medical times Branch daily as needed (muscle spasm, low back pain). For low back pain, muscle spasm. Alternate with cyclobenza manasa lidocaine 2021-06 Yes [id number] 3{patch Apply 3 [facility] HCL 4 % 2-15 } Patches to ity of [facility] 00:00: area(s) as [place] 00 needed Medical (pain). Branch Apply up to 3 patches to painful areas daily as needed. 12 hours on 12 hours off. cyclobenzap 2021-06 Yes [id number] 1/2 to 1 [facility] r[facility] 10 mg 2-15 tab po TID ity of tablet 00:00: prn muscle [place] 00 spasms, Medical low back Branch pain. Alternate with methocarba mol methocarbam 2021-06 Yes [id number] 750mg Take 1 [facility] oL 750 mg 2-15 tablet by ity o f tablet 00:00: mouth 4 [place] 00 (four) Medical times Branch daily as needed (muscle spasm, low back pain). For low back pain, muscle spasm. Alternate with cyclobenza manasa lidocaine 2021-06 Yes [id number] 3{patch Apply 3 [facility] HCL 4 % 2-15 } Patches to ity of [facility] 00:00: area(s) as [place] 00 needed Medical (pain). Branch Apply up to 3 patches to painful areas daily as needed. 12 hours on 12 hours off. cyclobenzap 2021-06 Yes [id number] 1/2 to 1 [facility] r[facility] 10 mg 2-15 tab po TID ity of tablet 00:00: prn muscle [place] 00 spasms, Medical low back Branch pain. Alternate with methocarba mol methocarbam 2021-06 Yes [id number] 750mg Take 1 [facility] oL 750 mg 2-15 tablet by ity o f tablet 00:00: mouth 4 [place] 00 (four) Medical times Branch daily as needed (muscle spasm, low back pain). For low back pain, muscle spasm. Alternate with cyclobenza manasa lidocaine 2021-06 Yes [id number] 3{patch Apply 3 [facility] HCL 4 % 2-15 } Patches to ity of [facility] 00:00: area(s) as [place] 00 needed Medical (pain). Branch Apply up to 3 patches to painful areas daily as needed. 12 hours on 12 hours off. cyclobenzap 2021-06 Yes [id number] 1/2 to 1 [facility] r[facility] 10 mg 2-15 tab po TID ity of tablet 00:00: prn muscle [place] 00 spasms, Medical low back Branch pain. Alternate with methocarba mol methocarbam 2021-06 Yes [id number] 750mg Take 1 [facility] oL 750 mg 2-15 tablet by ity o f tablet 00:00: mouth 4 00 (four) Medical times Branch daily as needed (muscle spasm, low back pain). For low back pain, muscle spasm. Alternate with cyclobenza manasa lidocaine 2021-06 Yes [id number] 3{patch Apply 3 [facility] HCL 4 % 2-15 } Patches to ity of [facility] 00:00: area(s) as [place] 00 needed Medical (pain). Branch Apply up to 3 patches to painful areas daily as needed. 12 hours on 12 hours off. cyclobenzap 2021-06 Yes [id number] 1/2 to 1 [facility] r[facility] 10 mg 2-15 tab po TID ity of tablet 00:00: prn muscle [place] 00 spasms, Medical low back Branch pain. Alternate with methocarba mol methocarbam 2021-06 Yes [id number] 750mg Take 1 [facility] oL 750 mg 2-15 tablet by ity o f tablet 00:00: mouth 4 [place] 00 (four) Medical times Branch daily as needed (muscle spasm, low back pain). For low back pain, muscle spasm. Alternate with cyclobenza manasa lidocaine 2021-06 Yes [id number] 3{patch Apply 3 [facility] HCL 4 % 2-15 } Patches to ity of [facility] 00:00: area(s) as [place] 00 needed Medical (pain). Branch Apply up to 3 patches to painful areas daily as needed. 12 hours on 12 hours off. cyclobenzap 2021-06 Yes [id number] 1/2 to 1 [facility] r[facility] 10 mg 2-15 tab po TID ity of tablet 00:00: prn muscle [place] 00 spasms, Medical low back Branch pain. Alternate with methocarba mol methocarbam 2021-06 Yes [id number] 750mg Take 1 [facility] oL 750 mg 2-15 tablet by ity o f tablet 00:00: mouth 4 [place] 00 (four) Medical times Branch daily as needed (muscle spasm, low back pain). For low back pain, muscle spasm. Alternate with cyclobenza manasa lidocaine 2021-06 Yes [id number] 3{patch Apply 3 [facility] HCL 4 % 2-15 } Patches to ity of [facility] 00:00: area(s) as [place] 00 needed Medical (pain). Branch Apply up to 3 patches to painful areas daily as needed. 12 hours on 12 hours off. cyclobenzap 2021-06 Yes [id number] /2 to 1 [facility] rine 10 mg 2-15 tab po TID ity of tablet 00:00: prn muscle [place] 00 spasms, Medical low back Branch pain. Alternate with methocarba mol methocarbam 2021-06 Yes [id number] 750mg Take 1 [facility] oL 750 mg 2-15 tablet by ity o f tablet 00:00: mouth 4 [place] 00 (four) Medical times Branch daily as needed (muscle spasm, low back pain). For low back pain, muscle spasm. Alternate with cyclobenza manasa lidocaine 2021-06 Yes [id number] 3{patch Apply 3 [facility] HCL 4 % 2-15 } Patches to ity of PtMd 00:00: area(s) as [place] 00 needed Medical (pain). Branch Apply up to 3 patches to painful areas daily as needed. 12 hours on 12 hours off. cyclobenzap 2021-06 Yes [id number] 1/2 to 1 [facility] rine 10 mg 2-15 tab po TID ity of tablet 00:00: prn muscle [place] 00 spasms, Medical low back Branch pain. Alternate with methocarba mol methocarbam 2021-06 Yes [id number] 750mg Take 1 [facility] oL 750 mg 2-15 tablet by ity o f tablet 00:00: mouth 4 (four) Medical times Branch daily as needed (muscle spasm, low back pain). For low back pain, muscle spasm. Alternate with cyclobenza manasa lidocaine 2021-06 Yes [id number] 3{patch Apply 3 [facility] HCL 4 % 2-15 } Patches to ity of PtMd 00:00: area(s) as [place] 00 needed Medical (pain). Branch Apply up to 3 patches to painful areas daily as needed. 12 hours on 12 hours off. cyclobenzap 2021-06 Yes [id number] 1/2 to 1 [facility] rine 10 mg 2-15 tab po TID ity of tablet 00:00: prn muscle [place] 00 spasms, Medical low back Branch pain. Alternate with methocarba mol methocarbam 2021-06 Yes [id number] 750mg Take 1 [facility] oL 750 mg 2-15 tablet by ity o f tablet 00:00: mouth 4 (four) Medical times Branch daily as needed (muscle spasm, low back pain). For low back pain, muscle spasm. Alternate with cyclobenza manasa lidocaine 2021-06 Yes [id number] 3{patch Apply 3 [facility] HCL 4 % 2-15 } Patches to ity of PtMd 00:00: area(s) as [place] 00 needed Medical (pain). Branch Apply up to 3 patches to painful areas daily as needed. 12 hours on 12 hours off. cyclobenzap 2021-06 Yes [id number] 1/2 to 1 [facility] rine 10 mg 2-15 tab po TID ity of tablet 00:00: prn muscle [place] 00 spasms, Medical low back Branch pain. Alternate with methocarba mol methocarbam 2021-06 Yes [id number] 750mg Take 1 [facility] oL 750 mg 2-15 tablet by ity o f tablet 00:00: mouth 4 (four) Medical times Branch daily as needed (muscle spasm, low back pain). For low back pain, muscle spasm. Alternate with cyclobenza manasa lidocaine 2021-06 Yes [id number] 3{patch Apply 3 [facility] HCL 4 % 2-15 } Patches to ity of PtMd 00:00: area(s) as [place] 00 needed Medical (pain). Branch Apply up to 3 patches to painful areas daily as needed. 12 hours on 12 hours off. cyclobenzap 2021-06 Yes [id number] 1/2 to 1 [facility] rine 10 mg 2-15 tab po TID ity of tablet 00:00: prn muscle [place] 00 spasms, Medical low back Branch pain. Alternate with methocarba mol methocarbam 2021-06 Yes [id number] 750mg Take 1 [facility] oL 750 mg 2-15 tablet by ity o f tablet 00:00: mouth 4 [place] 00 (four) Medical times Branch daily as needed (muscle spasm, low back pain). For low back pain, muscle spasm. Alternate with cyclobenza manasa lidocaine 2021-06 Yes [id number] 3{patch Apply 3 [facility] HCL 4 % 2-15 } Patches to ity of PtMd 00:00: area(s) as [place] 00 needed Medical (pain). Branch Apply up to 3 patches to painful areas daily as needed. 12 hours on 12 hours off. cyclobenzap 2021-06 Yes [id number] 1/2 to 1 [facility] rine 10 mg 2-15 tab po TID ity of tablet 00:00: prn muscle [place] 00 spasms, Medical low back Branch pain. Alternate with methocarba mol methocarbam 2021-06 Yes [id number] 750mg Take 1 [facility] oL 750 mg 2-15 tablet by ity o f tablet 00:00: mouth 4 [place] 00 (four) Medical times Branch daily as needed (muscle spasm, low back pain). For low back pain, muscle spasm. Alternate with cyclobenza manasa lidocaine 2021-06 Yes [id number] 3{patch Apply 3 [facility] HCL 4 % 2-15 } Patches to ity of PtMd 00:00: area(s) as [place] 00 needed Medical (pain). Branch Apply up to 3 patches to painful areas daily as needed. 12 hours on 12 hours off. cyclobenzap 2021-06 Yes [id number] 1/2 to 1 [facility] rine 10 mg 2-15 tab po TID ity of tablet 00:00: prn muscle [place] 00 spasms, Medical low back Branch pain. Alternate with methocarba mol methocarbam 2021-06 Yes [id number] 750mg Take 1 [facility] oL 750 mg 2-15 tablet by ity o f tablet 00:00: mouth 4 00 (four) Medical times Branch daily as needed (muscle spasm, low back pain). For low back pain, muscle spasm. Alternate with cyclobenza manasa lidocaine 2021-06 Yes [id number] 3{patch Apply 3 [facility] HCL 4 % 2-15 } Patches to ity of PtMd 00:00: area(s) as [place] 00 needed Medical (pain). Branch Apply up to 3 patches to painful areas daily as needed. 12 hours on 12 hours off. cyclobenzap 2021-06 Yes [id number] 1/2 to 1 [facility] rine 10 mg 2-15 tab po TID ity of tablet 00:00: prn muscle [place] 00 spasms, Medical low back Branch pain. Alternate with methocarba mol methocarbam 2021-06 Yes [id number] 750mg Take 1 [facility] oL 750 mg 2-15 tablet by ity o f tablet 00:00: mouth 4 (four) Medical times Branch daily as needed (muscle spasm, low back pain). For low back pain, muscle spasm. Alternate with cyclobenza manasa lidocaine 2021-06 Yes [id number] 3{patch Apply 3 [facility] HCL 4 % 2-15 } Patches to ity of PtMd 00:00: area(s) as [place] 00 needed Medical (pain). Branch Apply up to 3 patches to painful areas daily as needed. 12 hours on 12 hours off. cyclobenzap 2021-06 Yes [id number] 1/2 to 1 [facility] rine 10 mg 2-15 tab po TID ity of tablet 00:00: prn muscle [place] 00 spasms, Medical low back Branch pain. Alternate with methocarba mol methocarbam 2021-06 Yes [id number] 750mg Take 1 [facility] oL 750 mg 2-15 tablet by ity o f tablet 00:00: mouth 4 (four) Medical times Branch daily as needed (muscle spasm, low back pain). For low back pain, muscle spasm. Alternate with cyclobenza manasa lidocaine 2021-06 Yes [id number] 3{patch Apply 3 [facility] HCL 4 % 2-15 } Patches to ity of PtMd 00:00: area(s) as [place] 00 needed Medical (pain). Branch Apply up to 3 patches to painful areas daily as needed. 12 hours on 12 hours off. cyclobenzap 2021-06 Yes [id number] 1/2 to 1 [facility] rine 10 mg 2-15 tab po TID ity of tablet 00:00: prn muscle [place] 00 spasms, Medical low back Branch pain. Alternate with methocarba mol methocarbam 2021-06 Yes [id number] 750mg Take 1 [facility] oL 750 mg 2-15 tablet by ity o f tablet 00:00: mouth 4 (four) Medical times Branch daily as needed (muscle spasm, low back pain). For low back pain, muscle spasm. Alternate with cyclobenza manasa lidocaine 2021-06 Yes [id number] 3{patch Apply 3 [facility] HCL 4 % 2-15 } Patches to ity of PtMd 00:00: area(s) as [place] 00 needed Medical (pain). Branch Apply up to 3 patches to painful areas daily as needed. 12 hours on 12 hours off. cyclobenzap 2021-06 Yes [id number] /2 to 1 [facility] rine 10 mg 2-15 tab po TID ity of tablet 00:00: prn muscle [place] 00 spasms, Medical low back Branch pain. Alternate with methocarba mol methocarbam 2021-06 Yes [id number] 750mg Take 1 [facility] oL 750 mg 2-15 tablet by ity o f tablet 00:00: mouth 4 (four) Medical times Branch daily as needed (muscle spasm, low back pain). For low back pain, muscle spasm. Alternate with cyclobenza manasa lidocaine 2021-06 Yes [id number] 3{patch Apply 3 [facility] HCL 4 % 2-15 } Patches to ity of PtMd 00:00: area(s) as [place] 00 needed Medical (pain). Branch Apply up to 3 patches to painful areas daily as needed. 12 hours on 12 hours off. cyclobenzap 2021-06 Yes [id number] 1/2 to 1 [facility] rine 10 mg 2-15 tab po TID ity of tablet 00:00: prn muscle [place] 00 spasms, Medical low back Branch pain. Alternate with methocarba mol methocarbam 2021-06 Yes [id number] 750mg Take 1 [facility] oL 750 mg 2-15 tablet by ity o f tablet 00:00: mouth 4 (four) Medical times Branch daily as needed (muscle spasm, low back pain). For low back pain, muscle spasm. Alternate with cyclobenza manasa lidocaine 2021-06 Yes [id number] 3{patch Apply 3 [facility] HCL 4 % 2-15 } Patches to ity of PtMd 00:00: area(s) as [place] 00 needed Medical (pain). Branch Apply up to 3 patches to painful areas daily as needed. 12 hours on 12 hours off. cyclobenzap 2021-06 Yes [id number] 1/2 to 1 [facility] rine 10 mg 2-15 tab po TID ity of tablet 00:00: prn muscle [place] 00 spasms, Medical low back Branch pain. Alternate with methocarba mol methocarbam 2021-06 Yes [id number] 750mg Take 1 [facility] oL 750 mg 2-15 tablet by ity o f tablet 00:00: mouth 4 [place] 00 (four) Medical times Branch daily as needed (muscle spasm, low back pain). For low back pain, muscle spasm. Alternate with cyclobenza manasa lidocaine 2021-06 Yes [id number] 3{patch Apply 3 [facility] HCL 4 % 2-15 } Patches to ity of PtMd 00:00: area(s) as [place] 00 needed Medical (pain). Branch Apply up to 3 patches to painful areas daily as needed. 12 hours on 12 hours off. cyclobenzap 2021-06 Yes [id number] 1/2 to 1 [facility] rine 10 mg 2-15 tab po TID ity of tablet 00:00: prn muscle [place] 00 spasms, Medical low back Branch pain. Alternate with methocarba mol methocarbam 2021-06 Yes [id number] 750mg Take 1 [facility] oL 750 mg 2-15 tablet by ity o f tablet 00:00: mouth 4 [place] 00 (four) Medical times Branch daily as needed (muscle spasm, low back pain). For low back pain, muscle spasm. Alternate with cyclobenza manasa lidocaine 2021-06 Yes [id number] 3{patch Apply 3 [facility] HCL 4 % 2-15 } Patches to ity of PtMd 00:00: area(s) as [place] 00 needed Medical (pain). Branch Apply up to 3 patches to painful areas daily as needed. 12 hours on 12 hours off. cyclobenzap 2021-06 Yes [id number] 1/2 to 1 [facility] rine 10 mg 2-15 tab po TID ity of tablet 00:00: prn muscle [place] 00 spasms, Medical low back Branch pain. Alternate with methocarba mol methocarbam 2021-06 Yes [id number] 750mg Take 1 [facility] oL 750 mg 2-15 tablet by ity o f tablet 00:00: mouth 4 [place] 00 (four) Medical times Branch daily as needed (muscle spasm, low back pain). For low back pain, muscle spasm. Alternate with cyclobenza manasa lidocaine 2021-06 Yes [id number] 3{patch Apply 3 [facility] HCL 4 % 2-15 } Patches to ity of PtMd 00:00: area(s) as [place] 00 needed Medical (pain). Branch Apply up to 3 patches to painful areas daily as needed. 12 hours on 12 hours off. cyclobenzap 2021-06 Yes [id number] /2 to 1 [facility] rine 10 mg 2-15 tab po TID ity of tablet 00:00: prn muscle [place] 00 spasms, Medical low back Branch pain. Alternate with methocarba mol methocarbam 2021-06 Yes [id number] 750mg Take 1 [facility] oL 750 mg 2-15 tablet by ity o f tablet 00:00: mouth 4 (four) Medical times Branch daily as needed (muscle spasm, low back pain). For low back pain, muscle spasm. Alternate with cyclobenza manasa lidocaine 2021-06 Yes [id number] 3{patch Apply 3 [facility] HCL 4 % 2-15 } Patches to ity of PtMd 00:00: area(s) as [place] 00 needed Medical (pain). Branch Apply up to 3 patches to painful areas daily as needed. 12 hours on 12 hours off. cyclobenzap 2021-06 Yes [id number] /2 to 1 [facility] rine 10 mg 2-15 tab po TID ity of tablet 00:00: prn muscle [place] 00 spasms, Medical low back Branch pain. Alternate with methocarba mol methocarbam 2021-06 Yes [id number] 750mg Take 1 [facility] oL 750 mg 2-15 tablet by ity o f tablet 00:00: mouth 4 [place] 00 (four) Medical times Branch daily as needed (muscle spasm, low back pain). For low back pain, muscle spasm. Alternate with cyclobenza manasa lidocaine 2021-06 Yes [id number] 3{patch Apply 3 [facility] HCL 4 % 2-15 } Patches to ity of PtMd 00:00: area(s) as [place] 00 needed Medical (pain). Branch Apply up to 3 patches to painful areas daily as needed. 12 hours on 12 hours off. cyclobenzap 2021-06 Yes [id number] 1/2 to 1 [facility] rine 10 mg 2-15 tab po TID ity of tablet 00:00: prn muscle [place] 00 spasms, Medical low back Branch pain. Alternate with methocarba mol methocarbam 2021-06 Yes [id number] 750mg Take 1 [facility] oL 750 mg 2-15 tablet by ity o f tablet 00:00: mouth 4 [place] 00 (four) Medical times Branch daily as needed (muscle spasm, low back pain). For low back pain, muscle spasm. Alternate with cyclobenza manasa lidocaine 2021-06 Yes [id number] 3{patch Apply 3 [facility] HCL 4 % 2-15 } Patches to ity of PtMd 00:00: area(s) as [place] 00 needed Medical (pain). Branch Apply up to 3 patches to painful areas daily as needed. 12 hours on 12 hours off. cyclobenzap 2021-06 Yes [id number] 1/2 to 1 [facility] rine 10 mg 2-15 tab po TID ity of tablet 00:00: prn muscle [place] 00 spasms, Medical low back Branch pain. Alternate with methocarba mol pregabalin 2021-06- No [id number] 1-2 cap po [facility] 75 mg 2-15 -04 TID prn ity of capsule 00:00: 00:00 low back [place] 00 :00 pain Medical Branch pregabalin 2021-06- No [id number] 1-2 cap po [facility] 75 mg 2-15 -04 TID prn ity of capsule 00:00: 00:00 low back [place] 00 :00 pain Medical Branch lidocaine 2021-06 Yes [id number] 3{patch Apply 3 [facility] HCL 4 % 2-13 } Patches to ity of PtMd 00:00: area(s) as [place] 00 needed Medical (pain). Branch Apply up to 3 patches to painful areas daily as needed. 12 hours on 12 hours off. lidocaine 2021-06- No [id number] 3{patch Apply 3 [facility] HCL 4 % 07-2615 } Patches to ity o f PtMd 00:00: 00:00 area(s) as [place] 00 :00 needed Medical (pain). Branch Apply up to 3 patches to painful areas daily as needed. 12 hours on 12 hours off. lidocaine 2021-06- No [id number] 3{patch Apply 3 [facility] HCL 4 % 07-2615 } Patches to ity o f PtMd 00:00: 00:00 area(s) as [place] 00 :00 needed Medical (pain). Branch Apply up to 3 patches to painful areas daily as needed. 12 hours on 12 hours off. iopamidol 2021-06- No [id number] 74mL 74 mL, U nivers (ISOVUE 07-19 Intravenou ity o f 370-500 mL) 20:30: 19:31 s, ONCE, 1 [place] injection 00 :00 dose, On Medica l 74 mL Tue Branch 05/18/22 at 1430, Routine methylPREDN 2021-06- No [id number] Take by [facility] ISolone 07-19 mouth ity of (MEDROL, 00:00: 05:[place] 4 mg 00 :00 CTIONS for Med ical tablets 5 days. Branch follow package directions methylPREDN 2021-06- No [id number] Take by [facility] ISolone 07-19 mouth ity of (MEDROL, 00:00: 05:[place] 4 mg 00 :00 CTIONS for Med ical tablets 5 days. Branch follow package directions proMETHazin 2021-06- No 12.5mg 12.5 mg, Univers e 06-15 IV ity of (PHENERGAN) 21:00: 20:56 Piggyback, [place] 12.5 mg in 00 :00 ONCE, 1 Medica l NaCl 0.9% dose, On Branch (NS) 50 mL Josselyn IV 04/15/22 at piggyback 1600, CADEN ondansetron 2021-06- No 4mg 4 mg, Slow [facility] (ZOFRAN [...] 04/15/22 at 1530, STAT iopamidol 2021-06- No [id number] 65mL 65 mL, U nivers (ISOVUE 06-15 [...] diane 1:1:1 Josselyn Branch ([facility] 04/15/22 at [facility]) 1430, oral Routine suspension 15 mL aspirin 2021-06 325mg 325 mg, Unive rs tablet 325 06-15 Oral, ity of mg 19:15: 19:25 ONCE, 1 [place] 00 :00 dose, On Medical Josselyn Branch 04/15/22 at 1415, STAT ondansetron 2021-06 Yes [id number] 4mg Take 1 [facility] 4 mg 1-03 tablet by ity of disintegrat 00:00: mouth [place] ing tablet 00 every 8 Medica l (eight) Branch hours as needed for Nausea and Vomiting (N/V) for up to 10 doses. ondansetron 2021-06 Yes [id number] 4mg Take 1 [facility] 4 mg 1-03 tablet by ity of disintegrat 00:00: mouth [place] ing tablet 00 every 8 Medica l (eight) Branch hours as needed for Nausea and Vomiting (N/V) for up to 10 doses. ondansetron 2021-06 Yes [id number] 4mg Take 1 [facility] 4 mg 1-03 tablet by ity of disintegrat 00:00: mouth [place] ing tablet 00 every 8 Medica l (eight) Branch hours as needed for Nausea and Vomiting (N/V) for up to 10 doses. ondansetron 2021-06 Yes [id number] 4mg Take 1 [facility] 4 mg 1-03 tablet by ity of disintegrat 00:00: mouth [place] ing tablet 00 every 8 Medica l (eight) Branch hours as needed for Nausea and Vomiting (N/V) for up to 10 doses. ondansetron 2021-06 Yes [id number] 4mg Take 1 [facility] 4 mg 1-03 tablet by ity of disintegrat 00:00: mouth [place] ing tablet 00 every 8 Medica l (eight) Branch hours as needed for Nausea and Vomiting (N/V) for up to 10 doses. ondansetron 2021-06 Yes [id number] 4mg Take 1 [facility] 4 mg 1-03 tablet by ity of disintegrat 00:00: mouth [place] ing tablet 00 every 8 Medica l (eight) Branch hours as needed for Nausea and Vomiting (N/V) for up to 10 doses. ondansetron 2021-06 Yes [id number] 4mg Take 1 [facility] 4 mg 1-03 tablet by ity of disintegrat 00:00: mouth [place] ing tablet 00 every 8 Medica l (eight) Branch hours as needed for Nausea and Vomiting (N/V) for up to 10 doses. ondansetron 2021-06 Yes [id number] 4mg Take 1 [facility] 4 mg 1-03 tablet by ity of disintegrat 00:00: mouth [place] ing tablet 00 every 8 Medica l (eight) Branch hours as needed for Nausea and Vomiting (N/V) for up to 10 doses. ondansetron 2021-06 Yes [id number] 4mg Take 1 [facility] 4 mg 1-03 tablet by ity of disintegrat 00:00: mouth [place] ing tablet 00 every 8 Medica l (eight) Branch hours as needed for Nausea and Vomiting (N/V) for up to 10 doses. ondansetron 2021-06 Yes [id number] 4mg Take 1 [facility] 4 mg 1-03 tablet by ity of disintegrat 00:00: mouth [place] ing tablet 00 every 8 Medica l (eight) Branch hours as needed for Nausea and Vomiting (N/V) for up to 10 doses. ondansetron 2021-06 Yes [id number] 4mg Take 1 [facility] 4 mg 1-03 tablet by ity of disintegrat 00:00: mouth [place] ing tablet 00 every 8 Medica l (eight) Branch hours as needed for Nausea and Vomiting (N/V) for up to 10 doses. ondansetron 2021-06 Yes [id number] 4mg Take 1 [facility] 4 mg 1-03 tablet by ity of disintegrat 00:00: mouth [place] ing tablet 00 every 8 Medica l (eight) Branch hours as needed for Nausea and Vomiting (N/V) for up to 10 doses. ondansetron 2021-06 Yes [id number] 4mg Take 1 [facility] 4 mg 1-03 tablet by ity of disintegrat 00:00: mouth [place] ing tablet 00 every 8 Medica l (eight) Branch hours as needed for Nausea and Vomiting (N/V) for up to 10 doses. ondansetron 2021-06 Yes [id number] 4mg Take 1 [facility] 4 mg 1-03 tablet by ity of disintegrat 00:00: mouth [place] ing tablet 00 every 8 Medica l (eight) Branch hours as needed for Nausea and Vomiting (N/V) for up to 10 doses. ondansetron 2021-06 Yes [id number] 4mg Take 1 [facility] 4 mg 1-03 tablet by ity of disintegrat 00:00: mouth [place] ing tablet 00 every 8 Medica l (eight) Branch hours as needed for Nausea and Vomiting (N/V) for up to 10 doses. ondansetron 2021-06 Yes [id number] 4mg Take 1 [facility] 4 mg 1-03 tablet by ity of disintegrat 00:00: mouth [place] ing tablet 00 every 8 Medica l (eight) Branch hours as needed for Nausea and Vomiting (N/V) for up to 10 doses. ondansetron 2021-06 Yes [id number] 4mg Take 1 [facility] 4 mg 1-03 tablet by ity of disintegrat 00:00: mouth [place] ing tablet 00 every 8 Medica l (eight) Branch hours as needed for Nausea and Vomiting (N/V) for up to 10 doses. ondansetron 2021-06 Yes [id number] 4mg Take 1 [facility] 4 mg 1-03 tablet by ity of disintegrat 00:00: mouth [place] ing tablet 00 every 8 Medica l (eight) Branch hours as needed for Nausea and Vomiting (N/V) for up to 10 doses. ondansetron 2021-06 Yes [id number] 4mg Take 1 [facility] 4 mg 1-03 tablet by ity of disintegrat 00:00: mouth [place] ing tablet 00 every 8 Medica l (eight) Branch hours as needed for Nausea and Vomiting (N/V) for up to 10 doses. ondansetron 2021-06 Yes [id number] 4mg Take 1 [facility] 4 mg 1-03 tablet by ity of disintegrat 00:00: mouth [place] ing tablet 00 every 8 Medica l (eight) Branch hours as needed for Nausea and Vomiting (N/V) for up to 10 doses. ondansetron 2021-06- No [id number] 4mg Take 1 [facility] 4 mg 1-03 02-08 tablet by ity of disintegrat 00:00: 00:00 [place] tablet 00 :00 every 8 Medica l (eight) Branch hours as needed for Nausea and Vomiting (N/V) for up to 10 doses. ondansetron 2021-06- No [id number] 4mg Take 1 [facility] 4 mg 1-03 02-08 tablet by ity of disintegrat 00:00: 00:00 [place] tablet 00 :00 every 8 Medica l (eight) Branch hours as needed for Nausea and Vomiting (N/V) for up to 10 doses. ondansetron 2021-06- No [id number] 4mg Take 1 [facility] 4 mg 1-03 02-08 tablet by ity of disintegrat 00:00: 00:00 [place] tablet 00 :00 every 8 Medica l (eight) Branch hours as needed for Nausea and Vomiting (N/V) for up to 10 doses. meloxicam Yes [id number] 7.5mg Take 1 [facility] 7.5 mg 9-30 tablet by ity of tablet 00:00: mouth in [place] 00 the Medical morning. Branch meloxicam 2021- Yes [id number] 7.5mg Take 1 [facility] 7.5 mg 9-30 tablet by ity of tablet 00:00: mouth in [place] 00 the Medical morning. Branch meloxicam 2021-0 Yes [id number] 7.5mg Take 1 [facility] 7.5 mg 9-30 tablet by ity of tablet 00:00: mouth in [place] the Medical morning. Branch meloxicam 2021-0 Yes [id number] 7.5mg Take 1 [facility] 7.5 mg 9-30 tablet by ity of tablet 00:00: mouth in [place] the Medical morning. Branch meloxicam 2021-0 Yes [id number] 7.5mg Take 1 [facility] 7.5 mg 9-30 tablet by ity of tablet 00:00: mouth in [place] the Medical morning. Branch meloxicam 2021-0 Yes [id number] 7.5mg Take 1 [facility] 7.5 mg 9-30 tablet by ity of tablet 00:00: mouth in [place] the Medical morning. Branch meloxicam 2021-0 Yes [id number] 7.5mg Take 1 [facility] 7.5 mg 9-30 tablet by ity of tablet 00:00: mouth in [place] the Medical morning. Branch meloxicam 0 Yes [id number] 7.5mg Take 1 [facility] 7.5 mg 9-30 tablet by ity of tablet 00:00: mouth in [place] the Medical morning. Branch meloxicam 2021-0 Yes [id number] 7.5mg Take 1 [facility] 7.5 mg 9-30 tablet by ity of tablet 00:00: mouth in [place] the Medical morning. Branch meloxicam 2021-0 Yes [id number] 7.5mg Take 1 [facility] 7.5 mg 9-30 tablet by ity of tablet 00:00: mouth in [place] the Medical morning. Branch meloxicam 2021-0 Yes [id number] 7.5mg Take 1 [facility] 7.5 mg 9-30 tablet by ity of tablet 00:00: mouth in [place] the Medical morning. Branch meloxicam 2021-0 Yes [id number] 7.5mg Take 1 [facility] 7.5 mg 9-30 tablet by ity of tablet 00:00: mouth in [place] the Medical morning. Branch meloxicam 2021-0 Yes [id number] 7.5mg Take 1 [facility] 7.5 mg 9-30 tablet by ity of tablet 00:00: mouth in [place] the Medical morning. Branch meloxicam 2021-0 Yes [id number] 7.5mg Take 1 [facility] 7.5 mg 9-30 tablet by ity of tablet 00:00: mouth in [place] the Medical morning. Branch meloxicam 2021-0 Yes [id number] 7.5mg Take 1 [facility] 7.5 mg 9-30 tablet by ity of tablet 00:00: mouth in [place] the Medical morning. Branch meloxicam 2021-0 Yes [id number] 7.5mg Take 1 [facility] 7.5 mg 9-30 tablet by ity of tablet 00:00: mouth in [place] the Medical morning. Branch meloxicam 2021-0 Yes [id number] 7.5mg Take 1 [facility] 7.5 mg 9-30 tablet by ity of tablet 00:00: mouth in [place] the Medical morning. Branch meloxicam 2021-0 Yes [id number] 7.5mg Take 1 [facility] 7.5 mg 9-30 tablet by ity of tablet 00:00: mouth in [place] the Medical morning. Branch meloxicam 2021-0 Yes [id number] 7.5mg Take 1 [facility] 7.5 mg 9-30 tablet by ity of tablet 00:00: mouth in [place] the Medical morning. Branch meloxicam 2021-0 Yes [id number] 7.5mg Take 1 [facility] 7.5 mg 9-30 tablet by ity of tablet 00:00: mouth in [place] the Medical morning. Branch meloxicam 2021-0 Yes [id number] 7.5mg Take 1 [facility] 7.5 mg 9-30 tablet by ity of tablet 00:00: mouth in [place] the Medical morning. Branch meloxicam 2021-0 Yes [id number] 7.5mg Take 1 [facility] 7.5 mg 9-30 tablet by ity of tablet 00:00: mouth in [place] the Medical morning. Branch meloxicam 2021-0 Yes [id number] 7.5mg Take 1 [facility] 7.5 mg 9-30 tablet by ity of tablet 00:00: mouth in [place] the Medical morning. Branch meloxicam 2021-0 Yes [id number] 7.5mg Take 1 [facility] 7.5 mg 9-30 tablet by ity of tablet 00:00: mouth in [place] the Medical morning. Branch meloxicam 2021-0 Yes [id number] 7.5mg Take 1 [facility] 7.5 mg 9-30 tablet by ity of tablet 00:00: mouth in [place] the Medical morning. Branch meloxicam 2021-0 Yes [id number] 7.5mg Take 1 [facility] 7.5 mg 9-30 tablet by ity of tablet 00:00: mouth in [place] the Medical morning. Branch meloxicam 2021-0 Yes [id number] 7.5mg Take 1 [facility] 7.5 mg 9-30 tablet by ity of tablet 00:00: mouth in [place] the Medical morning. Branch meloxicam 2021-0 Yes [id number] 7.5mg Take 1 [facility] 7.5 mg 9-30 tablet by ity of tablet 00:00: mouth in [place] the Medical morning. Branch meloxicam 2021-0 Yes [id number] 7.5mg Take 1 [facility] 7.5 mg 9-30 tablet by [facility] tablet 00:00: mouth in [place] the Medical morning. Branch meloxicam 2021-0 Yes [id number] 7.5mg Take 1 [facility] 7.5 mg 9-30 tablet by [facility] tablet 00:00: mouth in [place] the Medical morning. Branch meloxicam 2021-0 Yes [id number] 7.5mg Take 1 [facility] 7.5 mg 9-30 tablet by [facility] tablet 00:00: mouth in [place] the Medical morning. Branch meloxicam 2021-0 Yes [id number] 7.5mg Take 1 [facility] 7.5 mg 9-30 tablet by [facility] tablet 00:00: mouth in [place] the Medical morning. Branch meloxicam 2021-0 Yes [id number] 7.5mg Take 1 [facility] 7.5 mg 9-30 tablet by [facility] tablet 00:00: mouth in [place] the Medical morning. Branch meloxicam 2021-0 Yes [id number] 7.5mg Take 1 [facility] 7.5 mg 9-30 tablet by [facility] tablet 00:00: mouth in [place] 00 the Medical morning. Branch meloxicam 2021-0 Yes [id number] 7.5mg Take 1 [facility] 7.5 mg 9-30 tablet by [facility] tablet 00:00: mouth in [place] 00 the Medical morning. Branch meloxicam 2021-0 Yes [id number] 7.5mg Take 1 [facility] 7.5 mg 9-30 tablet by [facility] tablet 00:00: mouth in [place] 00 the Medical morning. Branch meloxicam 2-0 Yes [id number] 7.5mg Take 1 [facility] 7.5 mg 9-30 tablet by [facility] tablet 00:00: mouth in [place] 00 the Medical morning. Branch meloxicam 2-0 Yes [id number] 7.5mg Take 1 [facility] 7.5 mg 9-30 tablet by [facility] tablet 00:00: mouth in [place] 00 the Medical morning. Branch meloxicam 2-0 Yes [id number] 7.5mg Take 1 [facility] 7.5 mg 9-30 tablet by [facility] tablet 00:00: mouth in [place] 00 the Medical morning. Branch ibuprofen 2021-0 Yes [id number] 600mg Take 1 [facility] 600 mg 9-11 tablet by [facility] tablet 00:00: mouth [place] 00 every 6 Medical (six) Branch hours as needed for Pain (scale 4-6) for up to 30 doses. ibuprofen 2021-0 Yes [id number] 600mg Take 1 [facility] 600 mg 9-11 tablet by [facility] tablet 00:00: mouth [place] 00 every 6 Medical (six) Branch hours as needed for Pain (scale 4-6) for up to 30 doses. ibuprofen 2021-0 Yes [id number] 600mg Take 1 [facility] 600 mg 9-11 tablet by [facility] tablet 00:00: mouth [place] 00 every 6 Medical (six) Branch hours as needed for Pain (scale 4-6) for up to 30 doses. ibuprofen 2021-0 Yes [id number] 600mg Take 1 [facility] 600 mg 9-11 tablet by [facility] tablet 00:00: mouth [place] 00 every 6 Medical (six) Branch hours as needed for Pain (scale 4-6) for up to 30 doses. ibuprofen 2-0 Yes [id number] 600mg Take 1 [facility] 600 mg 9-11 tablet by [facility] tablet 00:00: mouth [place] 00 every 6 Medical (six) Branch hours as needed for Pain (scale 4-6) for up to 30 doses. ibuprofen 2-0 Yes [id number] 600mg Take 1 [facility] 600 mg 9-11 tablet by [facility] tablet 00:00: mouth [place] 00 every 6 Medical (six) Branch hours as needed for Pain (scale 4-6) for up to 30 doses. ibuprofen 2022-0 Yes [id number] 600mg Take 1 [facility] 600 mg 9-11 tablet by [facility] tablet 00:00: mouth [place] 00 every 6 Medical (six) Branch hours as needed for Pain (scale 4-6) for up to 30 doses. ibuprofen 2022-0 Yes [id number] 600mg Take 1 [facility] 600 mg 9-11 tablet by [facility] tablet 00:00: mouth [place] 00 every 6 Medical (six) Branch hours as needed for Pain (scale 4-6) for up to 30 doses. ibuprofen 2022-0 Yes [id number] 600mg Take 1 [facility] 600 mg 9-11 tablet by [facility] tablet 00:00: mouth [place] 00 every 6 Medical (six) Branch hours as needed for Pain (scale 4-6) for up to 30 doses. ibuprofen 2022-0 Yes [id number] 600mg Take 1 [facility] 600 mg 9-11 tablet by [facility] tablet 00:00: mouth [place] 00 every 6 Medical (six) Branch hours as needed for Pain (scale 4-6) for up to 30 doses. ibuprofen 2022-0 Yes [id number] 600mg Take 1 [facility] 600 mg 9-11 tablet by [facility] tablet 00:00: mouth [place] 00 every 6 Medical (six) Branch hours as needed for Pain (scale 4-6) for up to 30 doses. ibuprofen 2022-0 Yes [id number] 600mg Take 1 [facility] 600 mg 9-11 tablet by [facility] tablet 00:00: mouth [place] 00 every 6 Medical (six) Branch hours as needed for Pain (scale 4-6) for up to 30 doses. ibuprofen 2022-0 Yes [id number] 600mg Take 1 [facility] 600 mg 9-11 tablet by [facility] tablet 00:00: mouth [place] 00 every 6 Medical (six) Branch hours as needed for Pain (scale 4-6) for up to 30 doses. ibuprofen 2022-0 Yes [id number] 600mg Take 1 [facility] 600 mg 9-11 tablet by [facility] tablet 00:00: mouth [place] 00 every 6 Medical (six) Branch hours as needed for Pain (scale 4-6) for up to 30 doses. ibuprofen 2022-0 Yes [id number] 600mg Take 1 [facility] 600 mg 9-11 tablet by [facility] tablet 00:00: mouth [place] 00 every 6 Medical (six) Branch hours as needed for Pain (scale 4-6) for up to 30 doses. ibuprofen 2022-0 Yes [id number] 600mg Take 1 [facility] 600 mg 9-11 tablet by [facility] tablet 00:00: mouth [place] 00 every 6 Medical (six) Branch hours as needed for Pain (scale 4-6) for up to 30 doses. ibuprofen 2022-0 Yes [id number] 600mg Take 1 [facility] 600 mg 9-11 tablet by [facility] tablet 00:00: mouth [place] 00 every 6 Medical (six) Branch hours as needed for Pain (scale 4-6) for up to 30 doses. ibuprofen 2022-0 Yes [id number] 600mg Take 1 [facility] 600 mg 9-11 tablet by [facility] tablet 00:00: mouth [place] 00 every 6 Medical (six) Branch hours as needed for Pain (scale 4-6) for up to 30 doses. ibuprofen 2022-0 Yes [id number] 600mg Take 1 [facility] 600 mg 9-11 tablet by [facility] tablet 00:00: mouth [place] 00 every 6 Medical (six) Branch hours as needed for Pain (scale 4-6) for up to 30 doses. ibuprofen 2022-0 Yes [id number] 600mg Take 1 [facility] 600 mg 9-11 tablet by [facility] tablet 00:00: mouth [place] 00 every 6 Medical (six) Branch hours as needed for Pain (scale 4-6) for up to 30 doses. ibuprofen 2022-0 Yes [id number] 600mg Take 1 [facility] 600 mg 9-11 tablet by [facility] tablet 00:00: mouth [place] 00 every 6 Medical (six) Branch hours as needed for Pain (scale 4-6) for up to 30 doses. ibuprofen 2022-0 Yes [id number] 600mg Take 1 [facility] 600 mg 9-11 tablet by [facility] tablet 00:00: mouth [place] 00 every 6 Medical (six) Branch hours as needed for Pain (scale 4-6) for up to 30 doses. ibuprofen 2022-0 Yes [id number] 600mg Take 1 [facility] 600 mg 9-11 tablet by [facility] tablet 00:00: mouth [place] 00 every 6 Medical (six) Branch hours as needed for Pain (scale 4-6) for up to 30 doses. ibuprofen 2022-0 Yes [id number] 600mg Take 1 [facility] 600 mg 9-11 tablet by [facility] tablet 00:00: mouth [place] 00 every 6 Medical (six) Branch hours as needed for Pain (scale 4-6) for up to 30 doses. ibuprofen 2022-0 Yes [id number] 600mg Take 1 [facility] 600 mg 9-11 tablet by [facility] tablet 00:00: mouth [place] 00 every 6 Medical (six) Branch hours as needed for Pain (scale 4-6) for up to 30 doses. ibuprofen 2022-0 Yes [id number] 600mg Take 1 [facility] 600 mg 9-11 tablet by [facility] tablet 00:00: mouth [place] 00 every 6 Medical (six) Branch hours as needed for Pain (scale 4-6) for up to 30 doses. ibuprofen 2022-0 Yes [id number] 600mg Take 1 [facility] 600 mg 9-11 tablet by [facility] tablet 00:00: mouth [place] 00 every 6 Medical (six) Branch hours as needed for Pain (scale 4-6) for up to 30 doses. ibuprofen 2022-0 Yes [id number] 600mg Take 1 [facility] 600 mg 9-11 tablet by [facility] tablet 00:00: mouth [place] 00 every 6 Medical (six) Branch hours as needed for Pain (scale 4-6) for up to 30 doses. ibuprofen 2022-0 Yes [id number] 600mg Take 1 [facility] 600 mg 9-11 tablet by [facility] tablet 00:00: mouth [place] 00 every 6 Medical (six) Branch hours as needed for Pain (scale 4-6) for up to 30 doses. ibuprofen 2022-0 Yes [id number] 600mg Take 1 [facility] 600 mg 9-11 tablet by [facility] tablet 00:00: mouth [place] 00 every 6 Medical (six) Branch hours as needed for Pain (scale 4-6) for up to 30 doses. ibuprofen 2022-0 Yes [id number] 600mg Take 1 [facility] 600 mg 9-11 tablet by [facility] tablet 00:00: mouth [place] 00 every 6 Medical (six) Branch hours as needed for Pain (scale 4-6) for up to 30 doses. ibuprofen 2022-0 Yes [id number] 600mg Take 1 [facility] 600 mg 9-11 tablet by [facility] tablet 00:00: mouth [place] 00 every 6 Medical (six) Branch hours as needed for Pain (scale 4-6) for up to 30 doses. ibuprofen 2022-0 Yes [id number] 600mg Take 1 [facility] 600 mg 9-11 tablet by [facility] tablet 00:00: mouth [place] 00 every 6 Medical (six) Branch hours as needed for Pain (scale 4-6) for up to 30 doses. ibuprofen 2022-0 Yes [id number] 600mg Take 1 [facility] 600 mg 9-11 tablet by [facility] tablet 00:00: mouth [place] 00 every 6 Medical (six) Branch hours as needed for Pain (scale 4-6) for up to 30 doses. ibuprofen 2022-0 Yes [id number] 600mg Take 1 [facility] 600 mg 9-11 tablet by [facility] tablet 00:00: mouth [place] 00 every 6 Medical (six) Branch hours as needed for Pain (scale 4-6) for up to 30 doses. ibuprofen 2-0 Yes [id number] 600mg Take 1 [facility] 600 mg 9-11 tablet by [facility] tablet 00:00: mouth [place] 00 every 6 Medical (six) Branch hours as needed for Pain (scale 4-6) for up to 30 doses. ibuprofen 2-0 Yes [id number] 600mg Take 1 [facility] 600 mg 9-11 tablet by [facility] tablet 00:00: mouth [place] 00 every 6 Medical (six) Branch hours as needed for Pain (scale 4-6) for up to 30 doses. ibuprofen 2-0 Yes [id number] 600mg Take 1 [facility] 600 mg 9-11 tablet by [facility] tablet 00:00: mouth [place] 00 every 6 Medical (six) Branch hours as needed for Pain (scale 4-6) for up to 30 doses. ibuprofen 2022-0 Yes [id number] 600mg Take 1 [facility] 600 mg 9-11 tablet by [facility] tablet 00:00: mouth [place] 00 every 6 Medical (six) Branch hours as needed for Pain (scale 4-6) for up to 30 doses. ibuprofen 2022-0 Yes [id number] 600mg Take 1 [facility] 600 mg 9-11 tablet by [facility] tablet 00:00: mouth [place] 00 every 6 Medical (six) Branch hours as needed for Pain (scale 4-6) for up to 30 doses. ibuprofen 2022-0 Yes [id number] 600mg Take 1 [facility] 600 mg 9-11 tablet by [facility] tablet 00:00: mouth [place] 00 every 6 Medical (six) Branch hours as needed for Pain (scale 4-6) for up to 30 doses. ibuprofen 2022-0 Yes [id number] 600mg Take 1 [facility] 600 mg 9-11 tablet by [facility] tablet 00:00: mouth [place] 00 every 6 Medical (six) Branch hours as needed for Pain (scale 4-6) for up to 30 doses. ibuprofen 2022-0 Yes [id number] 600mg Take 1 [facility] 600 mg 9-11 tablet by [facility] tablet 00:00: mouth [place] 00 every 6 Medical (six) Branch hours as needed for Pain (scale 4-6) for up to 30 doses. ibuprofen 2022-0 Yes [id number] 600mg Take 1 [facility] 600 mg 9-11 tablet by [facility] tablet 00:00: mouth [place] 00 every 6 Medical (six) Branch hours as needed for Pain (scale 4-6) for up to 30 doses. ibuprofen 2022-0 Yes [id number] 600mg Take 1 [facility] 600 mg 9-11 tablet by [facility] tablet 00:00: mouth [place] 00 every 6 Medical (six) Branch hours as needed for Pain (scale 4-6) for up to 30 doses. ibuprofen 2022-0 Yes [id number] 600mg Take 1 [facility] 600 mg 9-11 tablet by [facility] tablet 00:00: mouth [place] 00 every 6 Medical (six) Branch hours as needed for Pain (scale 4-6) for up to 30 doses. ibuprofen 2022-0 Yes [id number] 600mg Take 1 [facility] 600 mg 9-11 tablet by [facility] tablet 00:00: mouth [place] 00 every 6 Medical (six) Branch hours as needed for Pain (scale 4-6) for up to 30 doses. ibuprofen 2022-0 Yes [id number] 600mg Take 1 [facility] 600 mg 9-11 tablet by [facility] tablet 00:00: mouth [place] 00 every 6 Medical (six) Branch hours as needed for Pain (scale 4-6) for up to 30 doses. ibuprofen 2022-0 Yes [id number] 600mg Take 1 [facility] 600 mg 9-11 tablet by [facility] tablet 00:00: mouth [place] 00 every 6 Medical (six) Branch hours as needed for Pain (scale 4-6) for up to 30 doses. ibuprofen 2022-0 Yes [id number] 600mg Take 1 [facility] 600 mg 9-11 tablet by [facility] tablet 00:00: mouth [place] 00 every 6 Medical (six) Branch hours as needed for Pain (scale 4-6) for up to 30 doses. ibuprofen 2022-0 Yes [id number] 600mg Take 1 [facility] 600 mg 9-11 tablet by [facility] tablet 00:00: mouth [place] 00 every 6 Medical (six) Branch hours as needed for Pain (scale 4-6) for up to 30 doses. ibuprofen 2022-0 Yes [id number] 600mg Take 1 [facility] 600 mg 9-11 tablet by [facility] tablet 00:00: mouth [place] 00 every 6 Medical (six) Branch hours as needed for Pain (scale 4-6) for up to 30 doses. ibuprofen 2022-0 Yes [id number] 600mg Take 1 [facility] 600 mg 9-11 tablet by [facility] tablet 00:00: mouth [place] 00 every 6 Medical (six) Branch hours as needed for Pain (scale 4-6) for up to 30 doses. ibuprofen 2022-0 Yes [id number] 600mg Take 1 [facility] 600 mg 9-11 tablet by [facility] tablet 00:00: mouth [place] 00 every 6 Medical (six) Branch hours as needed for Pain (scale 4-6) for up to 30 doses. ibuprofen 2022-0 Yes [id number] 600mg Take 1 [facility] 600 mg 9-11 tablet by [facility] tablet 00:00: mouth [place] 00 every 6 Medical (six) Branch hours as needed for Pain (scale 4-6) for up to 30 doses. ibuprofen 2022-0 Yes [id number] 600mg Take 1 [facility] 600 mg 9-11 tablet by [facility] tablet 00:00: mouth [place] 00 every 6 Medical (six) Branch hours as needed for Pain (scale 4-6) for up to 30 doses. ibuprofen 2022-0 Yes [id number] 600mg Take 1 [facility] 600 mg 9-11 tablet by [facility] tablet 00:00: mouth [place] 00 every 6 Medical (six) Branch hours as needed for Pain (scale 4-6) for up to 30 doses. ibuprofen 2022-0 Yes [id number] 600mg Take 1 [facility] 600 mg 9-11 tablet by [facility] tablet 00:00: mouth [place] 00 every 6 Medical (six) Branch hours as needed for Pain (scale 4-6) for up to 30 doses. ibuprofen 2022-0 Yes [id number] 600mg Take 1 [facility] 600 mg 9-11 tablet by [facility] tablet 00:00: mouth [place] 00 every 6 Medical (six) Branch hours as needed for Pain (scale 4-6) for up to 30 doses. ibuprofen 2022-0 Yes [id number] 600mg Take 1 [facility] 600 mg 9-11 tablet by [facility] tablet 00:00: mouth [place] 00 every 6 Medical (six) Branch hours as needed for Pain (scale 4-6) for up to 30 doses. ibuprofen 2022-0 Yes [id number] 600mg Take 1 [facility] 600 mg 9-11 tablet by [facility] tablet 00:00: mouth [place] 00 every 6 Medical (six) Branch hours as needed for Pain (scale 4-6) for up to 30 doses. ibuprofen 2022-0 Yes [id number] 600mg Take 1 [facility] 600 mg 9-11 tablet by [facility] tablet 00:00: mouth [place] 00 every 6 Medical (six) Branch hours as needed for Pain (scale 4-6) for up to 30 doses. ibuprofen 2022-0 Yes [id number] 600mg Take 1 [facility] 600 mg 9-11 tablet by [facility] tablet 00:00: mouth [place] 00 every 6 Medical (six) Branch hours as needed for Pain (scale 4-6) for up to 30 doses. ibuprofen 2022-0 Yes [id number] 600mg Take 1 [facility] 600 mg 9-11 tablet by [facility] tablet 00:00: mouth [place] 00 every 6 Medical (six) Branch hours as needed for Pain (scale 4-6) for up to 30 doses. ibuprofen 2022-0 Yes [id number] 600mg Take 1 [facility] 600 mg 9-11 tablet by [facility] tablet 00:00: mouth [place] 00 every 6 Medical (six) Branch hours as needed for Pain (scale 4-6) for up to 30 doses. ibuprofen 2022-0 Yes [id number] 600mg Take 1 [facility] 600 mg 9-11 tablet by [facility] tablet 00:00: mouth [place] 00 every 6 Medical (six) Branch hours as needed for Pain (scale 4-6) for up to 30 doses. ibuprofen 2022-0 Yes [id number] 600mg Take 1 [facility] 600 mg 9-11 tablet by [facility] tablet 00:00: mouth [place] 00 every 6 Medical (six) Branch hours as needed for Pain (scale 4-6) for up to 30 doses. ibuprofen 2022-0 Yes [id number] 600mg Take 1 [facility] 600 mg 9-11 tablet by [facility] tablet 00:00: mouth [place] 00 every 6 Medical (six) Branch hours as needed for Pain (scale 4-6) for up to 30 doses. ibuprofen 2022-0 Yes [id number] 600mg Take 1 [facility] 600 mg 9-11 tablet by [facility] tablet 00:00: mouth [place] 00 every 6 Medical (six) Branch hours as needed for Pain (scale 4-6) for up to 30 doses. ibuprofen 2022-0 Yes [id number] 600mg Take 1 [facility] 600 mg 9-11 tablet by [facility] tablet 00:00: mouth [place] 00 every 6 Medical (six) Branch hours as needed for Pain (scale 4-6) for up to 30 doses. ibuprofen 2022-0 Yes [id number] 600mg Take 1 [facility] 600 mg 9-11 tablet by [facility] tablet 00:00: mouth [place] 00 every 6 Medical (six) Branch hours as needed for Pain (scale 4-6) for up to 30 doses. ibuprofen 2022-0 Yes [id number] 600mg Take 1 [facility] 600 mg 9-11 tablet by [facility] tablet 00:00: mouth [place] 00 every 6 Medical (six) Branch hours as needed for Pain (scale 4-6) for up to 30 doses. ibuprofen 2022-0 Yes [id number] 600mg Take 1 [facility] 600 mg 9-11 tablet by [facility] tablet 00:00: mouth [place] 00 every 6 Medical (six) Branch hours as needed for Pain (scale 4-6) for up to 30 doses. ibuprofen 2022-0 Yes [id number] 600mg Take 1 [facility] 600 mg 9-11 tablet by [facility] tablet 00:00: mouth [place] 00 every 6 Medical (six) Branch hours as needed for Pain (scale 4-6) for up to 30 doses. ibuprofen 2022-0 Yes [id number] 600mg Take 1 [facility] 600 mg 9-11 tablet by [facility] tablet 00:00: mouth [place] 00 every 6 Medical (six) Branch hours as needed for Pain (scale 4-6) for up to 30 doses. ibuprofen 2022-0 Yes [id number] 600mg Take 1 [facility] 600 mg 9-11 tablet by [facility] tablet 00:00: mouth [place] 00 every 6 Medical (six) Branch hours as needed for Pain (scale 4-6) for up to 30 doses. ibuprofen 2022-0 Yes [id number] 600mg Take 1 [facility] 600 mg 9-11 tablet by [facility] tablet 00:00: mouth [place] 00 every 6 Medical (six) Branch hours as needed for Pain (scale 4-6) for up to 30 doses. ibuprofen 2022-0 Yes [id number] 600mg Take 1 [facility] 600 mg 9-11 tablet by [facility] tablet 00:00: mouth [place] 00 every 6 Medical (six) Branch hours as needed for Pain (scale 4-6) for up to 30 doses. ibuprofen 2022-0 Yes [id number] 600mg Take 1 [facility] 600 mg 9-11 tablet by [facility] tablet 00:00: mouth [place] 00 every 6 Medical (six) Branch hours as needed for Pain (scale 4-6) for up to 30 doses. ibuprofen 2-0 Yes [id number] 600mg Take 1 [facility] 600 mg 9-11 tablet by [facility] tablet 00:00: mouth [place] 00 every 6 Medical (six) Branch hours as needed for Pain (scale 4-6) for up to 30 doses. ibuprofen 2-0 Yes [id number] 600mg Take 1 [facility] 600 mg 9-11 tablet by [facility] tablet 00:00: mouth [place] 00 every 6 Medical (six) Branch hours as needed for Pain (scale 4-6) for up to 30 doses. ibuprofen 2-0 Yes [id number] 600mg Take 1 [facility] 600 mg 9-11 tablet by [facility] tablet 00:00: mouth [place] 00 every 6 Medical (six) Branch hours as needed for Pain (scale 4-6) for up to 30 doses. ibuprofen 2022-0 Yes [id number] 600mg Take 1 [facility] 600 mg 9-11 tablet by [facility] tablet 00:00: mouth [place] 00 every 6 Medical (six) Branch hours as needed for Pain (scale 4-6) for up to 30 doses. ibuprofen 2022-0 Yes [id number] 600mg Take 1 [facility] 600 mg 9-11 tablet by [facility] tablet 00:00: mouth [place] 00 every 6 Medical (six) Branch hours as needed for Pain (scale 4-6) for up to 30 doses. ibuprofen 2022-0 Yes [id number] 600mg Take 1 [facility] 600 mg 9-11 tablet by [facility] tablet 00:00: mouth [place] 00 every 6 Medical (six) Branch hours as needed for Pain (scale 4-6) for up to 30 doses. ibuprofen 2021-0 3- No [id number] 600mg Take 1 [facility] 600 mg -11-02 tablet by [facility] tablet 00:00: 00:00 mouth [place] 00 :00 every 6 Medical (six) Branch hours as needed for Pain (scale 4-6) for up to 30 doses. ibuprofen 2021-0 3- No [id number] 600mg Take 1 [facility] 600 mg -11-02 tablet by [facility] tablet 00:00: 00:00 mouth [place] 00 :00 every 6 Medical (six) Branch hours as needed for Pain (scale 4-6) for up to 30 doses. cyclobenzap 2021-0 2022- No [id number] 10mg Take 1 [facility] rine 10 mg -03-01 tablet by [facility] tablet 00:00: 04:59 mouth in [place] 00 :00 the Medical morning Branch and 1 tablet at noon and 1 tablet in the evening. Do all this for 20 doses. cyclobenzap 2021-0 2021- No [id number] 10mg Take 1 [facility] rine 10 mg 02-21 tablet by [facility] tablet 00:00: 04:59 mouth in [place] 00 :00 the Medical morning Branch and 1 tablet at noon and 1 tablet in the evening. Do all this for 20 doses. cyclobenzap 2021-0 2021- No [id number] 10mg Take 1 [facility] rine 10 mg 02-21 tablet by [facility] tablet 00:00: 04:59 mouth in [place] 00 :00 the Medical morning Branch and 1 tablet at noon and 1 tablet in the evening. Do all this for 20 doses. acetaminoph 2021-0 Yes [id number] 1{tbl} Take 1 [facility] en-codeine 7-16 tablet by [facility] of 300-30 mg 00:00: mouth [place] tablet 00 every 6 Medical (six) Branch hours as needed for Pain (scale 4-6). Indication s: acute pain methocarbam 2-0 Yes [id number] 500mg Take 1 [facility] oL 500 mg 7-16 tablet by [facility] o f tablet 00:00: mouth 4 [place] 00 (four) Medical times Branch daily as needed for Pain (scale 1-3). acetaminoph 202-0 Yes [id number] 1{tbl} Take 1 [facility] en-codeine 7-16 tablet by [facility] of 300-30 mg 00:00: mouth [place] tablet 00 every 6 Medical (six) Branch hours as needed for Pain (scale 4-6). Indication s: acute pain methocarbam 2022-0 Yes [id number] 500mg Take 1 [facility] oL 500 mg [...] Indication s: acute pain methocarbam 2022-0 Yes [id number] 500mg Take 1 [facility] oL 500 mg [...] Indication s: acute pain methocarbam 2022-0 Yes [id number] 500mg Take 1 [facility] oL 500 mg [...] Indication s: acute pain methocarbam 2022-0 Yes [id number] 500mg Take 1 [facility] oL 500 mg [...] Indication s: acute pain methocarbam 2022-0 Yes [id number] 500mg Take 1 [facility] oL 500 mg [...] Indication s: acute pain methocarbam 2022-0 Yes [id number] 500mg Take 1 [facility] oL 500 mg [...] Indication s: acute pain methocarbam 2022-0 Yes [id number] 500mg Take 1 [facility] oL 500 mg [...] Indication s: acute pain methocarbam 2022-0 Yes [id number] 500mg Take 1 [facility] oL 500 mg [...] Indication s: acute pain methocarbam 2022-0 Yes [id number] 500mg Take 1 [facility] oL 500 mg [...] Indication s: acute pain methocarbam 2022-0 Yes [id number] 500mg Take 1 [facility] oL 500 mg [...] Indication s: acute pain methocarbam 2022-0 Yes [id number] 500mg Take 1 [facility] oL 500 mg [...] Indication s: acute pain methocarbam 2022-0 Yes [id number] 500mg Take 1 [facility] oL 500 mg [...] Indication s: acute pain methocarbam 2022-0 Yes [id number] 500mg Take 1 [facility] oL 500 mg [...] Indication s: acute pain methocarbam 2022-0 Yes [id number] 500mg Take 1 [facility] oL 500 mg [...] Indication s: acute pain methocarbam 2022-0 Yes [id number] 500mg Take 1 [facility] oL 500 mg [...] Indication s: acute pain methocarbam 2022-0 Yes [id number] 500mg Take 1 [facility] oL 500 mg [...] Indication s: acute pain methocarbam 2022-0 Yes [id number] 500mg Take 1 [facility] oL 500 mg [...] Indication s: acute pain methocarbam 2022-0 Yes [id number] 500mg Take 1 [facility] oL 500 mg [...] Indication s: acute pain methocarbam 2022-0 Yes [id number] 500mg Take 1 [facility] oL 500 mg [...] Indication s: acute pain methocarbam 2022-0 Yes [id number] 500mg Take 1 [facility] oL 500 mg [...] Indication s: acute pain methocarbam 2022-0 Yes [id number] 500mg Take 1 [facility] oL 500 mg [...] Indication s: acute pain methocarbam 2022-0 Yes [id number] 500mg Take 1 [facility] oL 500 mg [...] Indication s: acute pain methocarbam 2022-0 Yes [id number] 500mg Take 1 [facility] oL 500 mg [...] Indication s: acute pain methocarbam 2022-0 Yes [id number] 500mg Take 1 [facility] oL 500 mg [...] Indication s: acute pain methocarbam 2022-0 Yes [id number] 500mg Take 1 [facility] oL 500 mg [...] Indication s: acute pain methocarbam 2022-0 Yes [id number] 500mg Take 1 [facility] oL 500 mg [...] Indication s: acute pain methocarbam 2-0 Yes [id number] 500mg Take 1 [facility] oL 500 mg [...] Indication s: acute pain methocarbam 2022-0 Yes [id number] 500mg Take 1 [facility] oL 500 mg [...] Indication s: acute pain methocarbam 2022-0 Yes [id number] 500mg Take 1 [facility] oL 500 mg [...] (scale 4-6). Indication s: acute pain acetaminoph 2022- No [id number] 1{tbl} Take 1 [facility] en-codeine 7-16 05-15 tablet by [facility] of 300-30 mg 00:00: 00:00 mouth [place] tablet 00 :00 every 6 Medical (six) Branch hours as needed for Pain (scale 4-6). Indication s: acute pain methocarbam 2021-2021- No [id number] 500mg Take 1 [facility] oL 500 mg 7-16 12-15 tablet by [facility] tablet 00:00: 00:00 mouth 4 [place] 00 :00 (four) Medical times Branch daily as needed for Pain (scale 1-3). methocarbam 2021-0 2021- No [id number] 500mg Take 1 [facility] oL 500 mg 7-16 12-15 tablet by [facility] tablet 00:00: 00:00 mouth 4 [place] 00 :00 (four) Medical times Branch daily as needed for Pain (scale 1-3). lidocaine 5 2021-0 Yes [id number] 1{patch Apply 1 [facility] % (700 6-15 } Patch to [facility] of mg/patch) 00:00: area(s) as [place] patch 00 needed Medical (pain). Branch Apply up to 3 patches to painful areas. 12hrs on 12hrs off lidocaine 5 2021-0 Yes [id number] 1{patch Apply 1 [facility] % (700 6-15 } Patch to [facility] of mg/patch) 00:00: area(s) as [place] patch 00 needed Medical (pain). Branch Apply up to 3 patches to painful areas. 12hrs on 12hrs off lidocaine 5 2021-0 Yes [id number] 1{patch Apply 1 [facility] % (700 6-15 } Patch to [facility] of mg/patch) 00:00: area(s) as [place] patch 00 needed Medical (pain). Branch Apply up to 3 patches to painful areas. 12hrs on 12hrs off lidocaine 5 2022-0 Yes [id number] 1{patch Apply 1 [facility] % (700 6-15 } Patch to [facility]y of mg/patch) 00:00: area(s) [place] patch 00 needed Medical (pain). Branch Apply up to 3 patches to painful areas. 12hrs on 12hrs off lidocaine 5 2022-0 Yes [id number] 1{patch Apply 1 [facility] % (700 6-15 } Patch to ity of mg/patch) 00:00: area(s) [place] patch 00 needed Medical (pain). Branch Apply up to 3 patches to painful areas. 12hrs on 12hrs off lidocaine 5 2022-0 Yes [id number] 1{patch Apply 1 [facility] % (700 6-15 } Patch to ity of mg/patch) 00:00: area(s) [place] patch 00 needed Medical (pain). Branch Apply up to 3 patches to painful areas. 12hrs on 12hrs off lidocaine 5 2022-0 Yes [id number] 1{patch Apply 1 [facility] % (700 6-15 } Patch to ity of mg/patch) 00:00: area(s) [place] patch 00 needed Medical (pain). Branch Apply up to 3 patches to painful areas. 12hrs on 12hrs off lidocaine 5 2022-0 Yes [id number] 1{patch Apply 1 [facility] % (700 6-15 } Patch to ity of mg/patch) 00:00: area(s[place] patch 00 needed Medical (pain). Branch Apply up to 3 patches to painful areas. 12hrs on 12hrs off lidocaine 5 2022-0 Yes [id number] 1{patch Apply 1 [facility] % (700 6-15 } Patch to ity of mg/patch) 00:00: area(s) [place] patch 00 needed Medical (pain). Branch Apply up to 3 patches to painful areas. 12hrs on 12hrs off lidocaine 5 2022-0 Yes [id number] 1{patch Apply 1 [facility] % (700 6-15 } Patch to ity of mg/patch) 00:00: area(s[place] patch 00 needed Medical (pain). Branch Apply up to 3 patches to painful areas. 12hrs on 12hrs off lidocaine 5 2022-0 Yes [id number] 1{patch Apply 1 [facility] % (700 6-15 } Patch to ity of mg/patch) 00:00: area(s[place] patch 00 needed Medical (pain). Branch Apply up to 3 patches to painful areas. 12hrs on 12hrs off lidocaine 5 2022-0 Yes [id number] 1{patch Apply 1 [facility] % (700 6-15 } Patch to ity of mg/patch) 00:00: area(s[place] patch 00 needed Medical (pain). Branch Apply up to 3 patches to painful areas. 12hrs on 12hrs off lidocaine 5 2022-0 Yes [id number] 1{patch Apply 1 [facility] % (700 6-15 } Patch to ity of mg/patch) 00:00: area(s[place] patch 00 needed Medical (pain). Branch Apply up to 3 patches to painful areas. 12hrs on 12hrs off lidocaine 5 2022-0 Yes [id number] 1{patch Apply 1 [facility] % (700 6-15 } Patch to it[facility] of mg/patch) 00:00: area(s) [place] patch 00 needed Medical (pain). Branch Apply up to 3 patches to painful areas. 12hrs on 12hrs off lidocaine 5 2022-0 Yes [id number] 1{patch Apply 1 [facility] % (700 6-15 } Patch to ity of mg/patch) 00:00: area(s) [place] patch 00 needed Medical (pain). Branch Apply up to 3 patches to painful areas. 12hrs on 12hrs off lidocaine 5 2022-0 Yes [id number] 1{patch Apply 1 [facility] % (700 6-15 } Patch to ity of mg/patch) 00:00: area(s[place] patch 00 needed Medical (pain). Branch Apply up to 3 patches to painful areas. 12hrs on 12hrs off lidocaine 5 2022-0 Yes [id number] 1{patch Apply 1 [facility] % (700 6-15 } Patch to [facility] of mg/patch) 00:00: area(s[place] patch 00 needed Medical (pain). Branch Apply up to 3 patches to painful areas. 12hrs on 12hrs off lidocaine 5 2022-0 Yes [id number] 1{patch Apply 1 [facility] % (700 6-15 } Patch to [facility] of mg/patch) 00:00: area(s[place] patch 00 needed Medical (pain). Branch Apply up to 3 patches to painful areas. 12hrs on 12hrs off lidocaine 5 2022-0 Yes [id number] 1{patch Apply 1 [facility] % (700 6-15 } Patch to [facility] of mg/patch) 00:00: area(s) [place] patch 00 needed Medical (pain). Branch Apply up to 3 patches to painful areas. 12hrs on 12hrs off lidocaine 5 2022-0 Yes [id number] 1{patch Apply 1 [facility] % (700 6-15 } Patch to [facility] of mg/patch) 00:00: area(s) [place] patch 00 needed Medical (pain). Branch Apply up to 3 patches to painful areas. 12hrs on 12hrs off lidocaine 5 2022-0 Yes [id number] 1{patch Apply 1 [facility] % (700 6-15 } Patch to ity of mg/patch) 00:00: area(s[place] patch 00 needed Medical (pain). Branch Apply up to 3 patches to painful areas. 12hrs on 12hrs off lidocaine 5 2022-0 Yes [id number] 1{patch Apply 1 [facility] % (700 6-15 } Patch to ity of mg/patch) 00:00: area(s[place] patch 00 needed Medical (pain). Branch Apply up to 3 patches to painful areas. 12hrs on 12hrs off lidocaine 5 2022-0 Yes [id number] 1{patch Apply 1 [facility] % (700 6-15 } Patch to ity of mg/patch) 00:00: area(s) [place] patch 00 needed Medical (pain). Branch Apply up to 3 patches to painful areas. 12hrs on 12hrs off lidocaine 5 2022-0 Yes [id number] 1{patch Apply 1 [facility] % (700 6-15 } Patch to ity of mg/patch) 00:00: area(s) [place] patch 00 needed Medical (pain). Branch Apply up to 3 patches to painful areas. 12hrs on 12hrs off lidocaine 5 2022-0 Yes [id number] 1{patch Apply 1 [facility] % (700 6-15 } Patch to ity of mg/patch) 00:00: area(s) [place] patch 00 needed Medical (pain). Branch Apply up to 3 patches to painful areas. 12hrs on 12hrs off lidocaine 5 2022-0 Yes [id number] 1{patch Apply 1 [facility] % (700 6-15 } Patch to ity of mg/patch) 00:00: area(s) [place] patch 00 needed Medical (pain). Branch Apply up to 3 patches to painful areas. 12hrs on 12hrs off lidocaine 5 2022-0 Yes [id number] 1{patch Apply 1 [facility] % (700 6-15 } Patch to ity of mg/patch) 00:00: area(s) [place] patch 00 needed Medical (pain). Branch Apply up to 3 patches to painful areas. 12hrs on 12hrs off lidocaine 5 202-0 Yes [id number] 1{patch Apply 1 [facility] % (700 6-15 } Patch to ity of mg/patch) 00:00: area(s[place] patch 00 needed Medical (pain). Branch Apply up to 3 patches to painful areas. 12hrs on 12hrs off lidocaine 5 2-0 Yes [id number] 1{patch Apply 1 [facility] % (700 6-15 } Patch to ity of mg/patch) 00:00: area(s) [place] patch 00 needed Medical (pain). Branch Apply up to 3 patches to painful areas. 12hrs on 12hrs off lidocaine 5 2021-0 2022- No [id number] 1{patch Apply 1 [facility] % (700 6-15 12-13 } Patch to ity of mg/patch) 00:00: 00:00 area(s) [place] patch 00 :00 needed Medical (pain). Branch Apply up to 3 patches to painful areas. 12hrs on 12hrs off cephALEXin 2021-0 Yes [id number] 500mg Take 1 [facility] (KEFLEX) 6-09 capsule by ity o f 500 mg 00:00: mouth 3 [place] capsule 00 (three) Medical times Branch daily. cephALEXin 2021-0 Yes [id number] 500mg Take 1 [facility] (KEFLEX) 6-09 capsule by ity o f 500 mg 00:00: mouth 3 [place] capsule 00 (three) Medical times Branch daily. cephALEXin 2022-0 Yes [id number] 500mg Take 1 [facility] (KEFLEX) 6-09 capsule by ity o f 500 mg 00:00: mouth 3 [place] capsule 00 (three) Medical times Branch daily. cephALEXin 2022-0 Yes [id number] 500mg Take 1 [facility] (KEFLEX) 6-09 capsule by ity o f 500 mg 00:00: mouth 3 [place] capsule 00 (three) Medical times Branch daily. cephALEXin 2022-0 Yes [id number] 500mg Take 1 [facility] (KEFLEX) 6-09 capsule by ity o f 500 mg 00:00: mouth 3 [place] capsule 00 (three) Medical times Branch daily. cephALEXin 2022-0 Yes [id number] 500mg Take 1 [facility] (KEFLEX) 6-09 capsule by ity o f 500 mg 00:00: mouth 3 [place] capsule 00 (three) Medical times Branch daily. cephALEXin 2022-0 Yes [id number] 500mg Take 1 [facility] (KEFLEX) 6-09 capsule by ity o f 500 mg 00:00: mouth 3 [place] capsule 00 (three) Medical times Branch daily. cephALEXin 2022-0 Yes [id number] 500mg Take 1 [facility] (KEFLEX) 6-09 capsule by ity o f 500 mg 00:00: mouth 3 [place] capsule 00 (three) Medical times Branch daily. cephALEXin 2022-0 Yes [id number] 500mg Take 1 [facility] (KEFLEX) 6-09 capsule by ity o f 500 mg 00:00: mouth 3 [place] capsule 00 (three) Medical times Branch daily. cephALEXin 2022-0 Yes [id number] 500mg Take 1 [facility] (KEFLEX) 6-09 capsule by ity o f 500 mg 00:00: mouth 3 [place] capsule 00 (three) Medical times Branch daily. cephALEXin 2022-0 Yes [id number] 500mg Take 1 [facility] (KEFLEX) 6-09 capsule by ity o f 500 mg 00:00: mouth 3 [place] capsule 00 (three) Medical times Branch daily. cephALEXin 2022-0 Yes [id number] 500mg Take 1 [facility] (KEFLEX) 6-09 capsule by ity o f 500 mg 00:00: mouth 3 [place] capsule 00 (three) Medical times Branch daily. cephALEXin 2022-0 Yes [id number] 500mg Take 1 [facility] (KEFLEX) 6-09 capsule by ity o f 500 mg 00:00: mouth 3 [place] capsule 00 (three) Medical times Branch daily. cephALEXin 2022-0 Yes [id number] 500mg Take 1 [facility] (KEFLEX) 6-09 capsule by ity o f 500 mg 00:00: mouth 3 [place] capsule 00 (three) Medical times Branch daily. cephALEXin 2022-0 Yes [id number] 500mg Take 1 [facility] (KEFLEX) 6-09 capsule by ity o f 500 mg 00:00: mouth 3 [place] capsule 00 (three) Medical times Branch daily. cephALEXin 2022-0 Yes [id number] 500mg Take 1 [facility] (KEFLEX) 6-09 capsule by ity o f 500 mg 00:00: mouth 3 [place] capsule 00 (three) Medical times Branch daily. cephALEXin 2022-0 Yes [id number] 500mg Take 1 [facility] (KEFLEX) 6-09 capsule by ity o f 500 mg 00:00: mouth 3 [place] capsule 00 (three) Medical times Branch daily. cephALEXin 2022-0 Yes [id number] 500mg Take 1 [facility] (KEFLEX) 6-09 capsule by ity o f 500 mg 00:00: mouth 3 [place] capsule 00 (three) Medical times Branch daily. cephALEXin 2022-0 Yes [id number] 500mg Take 1 [facility] (KEFLEX) 6-09 capsule by ity o f 500 mg 00:00: mouth 3 [place] capsule 00 (three) Medical times Branch daily. cephALEXin 2022-0 Yes [id number] 500mg Take 1 [facility] (KEFLEX) 6-09 capsule by ity o f 500 mg 00:00: mouth 3 [place] capsule 00 (three) Medical times Branch daily. cephALEXin 2022-0 Yes [id number] 500mg Take 1 [facility] (KEFLEX) 6-09 capsule by ity o f 500 mg 00:00: mouth 3 [place] capsule 00 (three) Medical times Branch daily. cephALEXin 2022-0 Yes [id number] 500mg Take 1 [facility] (KEFLEX) 6-09 capsule by ity o f 500 mg 00:00: mouth 3 [place] capsule 00 (three) Medical times Branch daily. cephALEXin 2022-0 Yes [id number] 500mg Take 1 [facility] (KEFLEX) 6-09 capsule by ity o f 500 mg 00:00: mouth 3 [place] capsule 00 (three) Medical times Branch daily. cephALEXin 2022-0 Yes [id number] 500mg Take 1 [facility] (KEFLEX) 6-09 capsule by ity o f 500 mg 00:00: mouth 3 [place] capsule 00 (three) Medical times Branch daily. cephALEXin 2022-0 Yes [id number] 500mg Take 1 [facility] (KEFLEX) 6-09 capsule by ity o f 500 mg 00:00: mouth 3 [place] capsule 00 (three) Medical times Branch daily. cephALEXin 2022-0 Yes [id number] 500mg Take 1 [facility] (KEFLEX) 6-09 capsule by ity o f 500 mg 00:00: mouth 3 [place] capsule 00 (three) Medical times Branch daily. cephALEXin 2022-0 Yes [id number] 500mg Take 1 [facility] (KEFLEX) 6-09 capsule by ity o f 500 mg 00:00: mouth 3 [place] capsule 00 (three) Medical times Branch daily. cephALEXin 2022-0 Yes [id number] 500mg Take 1 [facility] (KEFLEX) 6-09 capsule by ity o f 500 mg 00:00: mouth 3 [place] capsule 00 (three) Medical times Branch daily. cephALEXin 2022-0 Yes [id number] 500mg Take 1 [facility] (KEFLEX) 6-09 capsule by ity o f 500 mg 00:00: mouth 3 [place] capsule 00 (three) Medical times Branch daily. cephALEXin 2022-0 Yes [id number] 500mg Take 1 [facility] (KEFLEX) 6-09 capsule by ity o f 500 mg 00:00: mouth 3 [place] capsule 00 (three) Medical times Branch daily. cephALEXin 2022-0 Yes [id number] 500mg Take 1 [facility] (KEFLEX) 6-09 capsule by ity o f 500 mg 00:00: mouth 3 [place] capsule 00 (three) Medical times Branch daily. cephALEXin 2022-0 Yes [id number] 500mg Take 1 [facility] (KEFLEX) 6-09 capsule by ity o f 500 mg 00:00: mouth 3 [place] capsule 00 (three) Medical times Branch daily. cephALEXin 2022-0 Yes [id number] 500mg Take 1 [facility] (KEFLEX) 6-09 capsule by ity o f 500 mg 00:00: mouth 3 [place] capsule 00 (three) Medical times Branch daily. cephALEXin 2022-0 Yes [id number] 500mg Take 1 [facility] (KEFLEX) 6-09 capsule by ity o f 500 mg 00:00: mouth 3 [place] capsule 00 (three) Medical times Branch daily. cephALEXin 2022-0 Yes [id number] 500mg Take 1 [facility] (KEFLEX) 6-09 capsule by ity o f 500 mg 00:00: mouth 3 [place] capsule 00 (three) Medical times Branch daily. cephALEXin 2022-0 Yes [id number] 500mg Take 1 [facility] (KEFLEX) 6-09 capsule by ity o f 500 mg 00:00: mouth 3 [place] capsule 00 (three) Medical times Branch daily. cephALEXin 2022-0 Yes [id number] 500mg Take 1 [facility] (KEFLEX) 6-09 capsule by ity o f 500 mg 00:00: mouth 3 [place] capsule 00 (three) Medical times Branch daily. cephALEXin 2022-0 Yes [id number] 500mg Take 1 [facility] (KEFLEX) 6-09 capsule by ity o f 500 mg 00:00: mouth 3 [place] capsule 00 (three) Medical times Branch daily. cephALEXin 2022-0 Yes [id number] 500mg Take 1 [facility] (KEFLEX) 6-09 capsule by ity o f 500 mg 00:00: mouth 3 [place] capsule 00 (three) Medical times Branch daily. cephALEXin 2022-0 Yes [id number] 500mg Take 1 [facility] (KEFLEX) 6-09 capsule by ity o f 500 mg 00:00: mouth 3 [place] capsule 00 (three) Medical times Branch daily. cephALEXin 2022-0 Yes [id number] 500mg Take 1 [facility] (KEFLEX) 6-09 capsule by ity o f 500 mg 00:00: mouth 3 [place] capsule 00 (three) Medical times Branch daily. cephALEXin 2022-0 Yes [id number] 500mg Take 1 [facility] (KEFLEX) 6-09 capsule by ity o f 500 mg 00:00: mouth 3 [place] capsule 00 (three) Medical times Branch daily. cephALEXin 2022-0 Yes [id number] 500mg Take 1 [facility] (KEFLEX) 6-09 capsule by ity o f 500 mg 00:00: mouth 3 [place] capsule 00 (three) Medical times Branch daily. cephALEXin 2022-0 Yes [id number] 500mg Take 1 [facility] (KEFLEX) 6-09 capsule by ity o f 500 mg 00:00: mouth 3 [place] capsule 00 (three) Medical times Branch daily. cephALEXin 2022-0 Yes [id number] 500mg Take 1 [facility] (KEFLEX) 6-09 capsule by ity o f 500 mg 00:00: mouth 3 [place] capsule 00 (three) Medical times Branch daily. cephALEXin 2022-0 Yes [id number] 500mg Take 1 [facility] (KEFLEX) 6-09 capsule by ity o f 500 mg 00:00: mouth 3 [place] capsule 00 (three) Medical times Branch daily. cephALEXin 2022-0 Yes [id number] 500mg Take 1 [facility] (KEFLEX) 6-09 capsule by ity o f 500 mg 00:00: mouth 3 [place] capsule 00 (three) Medical times Branch daily. cephALEXin 2022-0 Yes [id number] 500mg Take 1 [facility] (KEFLEX) 6-09 capsule by ity o f 500 mg 00:00: mouth 3 [place] capsule 00 (three) Medical times Branch daily. cephALEXin 2022-0 Yes [id number] 500mg Take 1 [facility] (KEFLEX) 6-09 capsule by ity o f 500 mg 00:00: mouth 3 [place] capsule 00 (three) Medical times Branch daily. cephALEXin 2022-0 Yes [id number] 500mg Take 1 [facility] (KEFLEX) 6-09 capsule by ity o f 500 mg 00:00: mouth 3 [place] capsule 00 (three) Medical times Branch daily. cephALEXin 2-0 Yes [id number] 500mg Take 1 [facility] (KEFLEX) 6-09 capsule by ity o f 500 mg 00:00: mouth 3 [place] capsule 00 (three) Medical times Branch daily. pregabalin 2021-0 Yes [id number] 1-2 cap po [facility] 75 mg 3-29 TID prn ity of capsule 00:00: low back [place] 00 pain Medical Branch methocarbam 2022-0 Yes [id number] 750mg Take 1 [facility] oL 750 mg 3-29 tablet by ity o f tablet 00:00: mouth 4 [place] 00 (four) Medical times Branch daily as needed (muscle spasm, low back pain). For low back pain, muscle spasm. Alternate with cyclobenza manasa pregabalin 2021-0 Yes [id number] 1-2 cap po [facility] 75 mg 3-29 TID prn ity of capsule 00:00: low back [place] pain Medical Branch methocarbam Yes [id number] 750mg Take 1 [facility] oL 750 mg 3-29 tablet by ity o f tablet 00:00: mouth 4 (four) Medical times Branch daily as needed (muscle spasm, low back pain). For low back pain, muscle spasm. Alternate with cyclobenza manasa pregabalin Yes [id number] 1-2 cap po [facility] 75 mg 3-29 TID prn ity of capsule 00:00: low back [place] pain Medical Branch methocarbam Yes [id number] 750mg Take 1 [facility] oL 750 mg 3-29 tablet by ity o f tablet 00:00: mouth (four) Medical times Branch daily as needed (muscle spasm, low back pain). For low back pain, muscle spasm. Alternate with cyclobenza manasa pregabalin Yes [id number] 1-2 cap po [facility] 75 mg 3-29 TID prn ity of capsule 00:00: low back [place] pain Medical Branch methocarbam Yes [id number] 750mg Take 1 [facility] oL 750 mg 3-29 tablet by ity o f tablet 00:00: mouth (four) Medical times Branch daily as needed (muscle spasm, low back pain). For low back pain, muscle spasm. Alternate with cyclobenza manasa pregabalin Yes [id number] 1-2 cap po [facility] 75 mg 3-29 TID prn ity of capsule 00:00: low back [place] pain Medical Branch methocarbam Yes [id number] 750mg Take 1 [facility] oL 750 mg 3-29 tablet by ity o f tablet 00:00: mouth (four) Medical times Branch daily as needed (muscle spasm, low back pain). For low back pain, muscle spasm. Alternate with cyclobenza manasa pregabalin Yes [id number] 1-2 cap po [facility] 75 mg 3-29 TID prn ity of capsule 00:00: low back [place] pain Medical Branch methocarbam Yes [id number] 750mg Take 1 [facility] oL 750 mg 3-29 tablet by ity o f tablet 00:00: mouth (four) Medical times Branch daily as needed (muscle spasm, low back pain). For low back pain, muscle spasm. Alternate with cyclobenza manasa pregabalin 2021-0 Yes [id number] 1-2 cap po [facility] 75 mg 3-29 TID prn ity of capsule 00:00: low back [place] pain Medical Branch methocarbam 2021-0 Yes [id number] 750mg Take 1 [facility] oL 750 mg 3-29 tablet by ity o f tablet 00:00: mouth (four) Medical times Branch daily as needed (muscle spasm, low back pain). For low back pain, muscle spasm. Alternate with cyclobenza manasa pregabalin 2021-0 Yes [id number] 1-2 cap po [facility] 75 mg 3-29 TID prn ity of capsule 00:00: low back [place] pain Medical Branch methocarbam 2021-0 Yes [id number] 750mg Take 1 [facility] oL 750 mg 3-29 tablet by ity o f tablet 00:00: mouth ([facility]) Medical times Branch daily as needed (muscle spasm, low back pain). For low back pain, muscle spasm. Alternate with cyclobenza manasa pregabalin 2021-0 Yes [id number] 1-2 cap po [facility] 75 mg 3-29 TID prn ity of capsule 00:00: low back [place] pain Medical Branch methocarbam 2021-0 Yes [id number] 750mg Take 1 [facility] oL 750 mg 3-29 tablet by ity o f tablet 00:00: mouth ([facility]) Medical times Branch daily as needed (muscle spasm, low back pain). For low back pain, muscle spasm. Alternate with cyclobenza manasa pregabalin 2021-0 Yes [id number] 1-2 cap po [facility] 75 mg 3-29 TID prn ity of capsule 00:00: low back [place] pain Medical Branch methocarbam 2021-0 Yes [id number] 750mg Take 1 [facility] oL 750 mg 3-29 tablet by ity o f tablet 00:00: mouth (four) Medical times Branch daily as needed (muscle spasm, low back pain). For low back pain, muscle spasm. Alternate with cyclobenza manasa pregabalin 2022-0 Yes [id number] 1-2 cap po [facility] 75 mg 3-29 TID prn ity of capsule 00:00: low back pain Medical Branch methocarbam Yes [id number] 750mg Take 1 [facility] oL 750 mg 3-29 tablet by ity o f tablet 00:00: mouth 4 (four) Medical times Branch daily as needed (muscle spasm, low back pain). For low back pain, muscle spasm. Alternate with cyclobenza manasa pregabalin Yes [id number] 1-2 cap po [facility] 75 mg 3-29 TID prn ity of capsule 00:00: low back [place] pain Medical Branch methocarbam Yes [id number] 750mg Take 1 [facility] oL 750 mg 3-29 tablet by ity o f tablet 00:00: mouth (four) Medical times Branch daily as needed (muscle spasm, low back pain). For low back pain, muscle spasm. Alternate with cyclobenza manasa pregabalin Yes [id number] 1-2 cap po [facility] 75 mg 3-29 TID prn ity of capsule 00:00: low back [place] pain Medical Branch methocarbam Yes [id number] 750mg Take 1 [facility] oL 750 mg 3-29 tablet by ity o f tablet 00:00: mouth (four) Medical times Branch daily as needed (muscle spasm, low back pain). For low back pain, muscle spasm. Alternate with cyclobenza manasa pregabalin Yes [id number] 1-2 cap po [facility] 75 mg 3-29 TID prn ity of capsule 00:00: low back [place] pain Medical Branch methocarbam 0 Yes [id number] 750mg Take 1 [facility] oL 750 mg 3-29 tablet by ity o f tablet 00:00: mouth (four) Medical times Branch daily as needed (muscle spasm, low back pain). For low back pain, muscle spasm. Alternate with cyclobenza manasa pregabalin Yes [id number] 1-2 cap po [facility] 75 mg 3-29 TID prn ity of capsule 00:00: low back [place] pain Medical Branch methocarbam 2022-0 Yes [id number] 750mg Take 1 [facility] oL 750 mg 3-29 tablet by ity o f tablet 00:00: mouth (four) Medical times Branch daily as needed (muscle spasm, low back pain). For low back pain, muscle spasm. Alternate with cyclobenza manasa pregabalin 0 Yes [id number] 1-2 cap po [facility] 75 mg 3-29 TID prn ity of capsule 00:00: low back pain Medical Branch methocarbam 0 Yes [id number] 750mg Take 1 [facility] oL 750 mg 3-29 tablet by ity o f tablet 00:00: mouth (four) Medical times Branch daily as needed (muscle spasm, low back pain). For low back pain, muscle spasm. Alternate with cyclobenza manasa pregabalin 0 Yes [id number] 1-2 cap po [facility] 75 mg 3-29 TID prn ity of capsule 00:00: low back [place] pain Medical Branch methocarbam 0 Yes [id number] 750mg Take 1 [facility] oL 750 mg 3-29 tablet by ity o f tablet 00:00: mouth (four) Medical times Branch daily as needed (muscle spasm, low back pain). For low back pain, muscle spasm. Alternate with cyclobenza manasa pregabalin 0 Yes [id number] 1-2 cap po [facility] 75 mg 3-29 TID prn ity of capsule 00:00: low back pain Medical Branch methocarbam 2021-0 Yes [id number] 750mg Take 1 [facility] oL 750 mg 3-29 tablet by ity o f tablet 00:00: mouth (four) Medical times Branch daily as needed (muscle spasm, low back pain). For low back pain, muscle spasm. Alternate with cyclobenza manasa pregabalin 2021-0 Yes [id number] 1-2 cap po [facility] 75 mg 3-29 TID prn ity of capsule 00:00: low back pain Medical Branch methocarbam 2021-0 Yes [id number] 750mg Take 1 [facility] oL 750 mg 3-29 tablet by ity o f tablet 00:00: mouth (four) Medical times Branch daily as needed (muscle spasm, low back pain). For low back pain, muscle spasm. Alternate with cyclobenza manasa pregabalin 0 Yes [id number] 1-2 cap po [facility] 75 mg 3-29 TID prn ity of capsule 00:00: low back [place] pain Medical Branch methocarbam 2021-0 Yes [id number] 750mg Take 1 [facility] oL 750 mg 3-29 tablet by ity o f tablet 00:00: mouth 4 (four) Medical times Branch daily as needed (muscle spasm, low back pain). For low back pain, muscle spasm. Alternate with cyclobenza manasa pregabalin 0 Yes [id number] 1-2 cap po [facility] 75 mg 3-29 TID prn ity of capsule 00:00: low back [place] pain Medical Branch methocarbam 0 Yes [id number] 750mg Take 1 [facility] oL 750 mg 3-29 tablet by ity o f tablet 00:00: mouth (four) Medical times Branch daily as needed (muscle spasm, low back pain). For low back pain, muscle spasm. Alternate with cyclobenza manasa pregabalin Yes [id number] 1-2 cap po [facility] 75 mg 3-29 TID prn ity of capsule 00:00: low back [place] pain Medical Branch methocarbam 0 Yes [id number] 750mg Take 1 [facility] oL 750 mg 3-29 tablet by ity o f tablet 00:00: mouth 4 (four) Medical times Branch daily as needed (muscle spasm, low back pain). For low back pain, muscle spasm. Alternate with cyclobenza manasa pregabalin 0 Yes [id number] 1-2 cap po [facility] 75 mg 3-29 TID prn ity of capsule 00:00: low back [place] pain Medical Branch methocarbam 2021-0 Yes [id number] 750mg Take 1 [facility] oL 750 mg 3-29 tablet by ity o f tablet 00:00: mouth 4 (four) Medical times Branch daily as needed (muscle spasm, low back pain). For low back pain, muscle spasm. Alternate with cyclobenza manasa pregabalin 2021-0 Yes [id number] 1-2 cap po [facility] 75 mg 3-29 TID prn ity of capsule 00:00: low back pain Medical Branch methocarbam 0 Yes [id number] 750mg Take 1 [facility] oL 750 mg 3-29 tablet by ity o f tablet 00:00: mouth 4 (four) Medical times Branch daily as needed (muscle spasm, low back pain). For low back pain, muscle spasm. Alternate with cyclobenza manasa pregabalin Yes [id number] 1-2 cap po [facility] 75 mg 3-29 TID prn ity of capsule 00:00: low back pain Medical Branch methocarbam 0 Yes [id number] 750mg Take 1 [facility] oL 750 mg 3-29 tablet by ity o f tablet 00:00: mouth (four) Medical times Branch daily as needed (muscle spasm, low back pain). For low back pain, muscle spasm. Alternate with cyclobenza manasa pregabalin Yes [id number] 1-2 cap po [facility] 75 mg 3-29 TID prn ity of capsule 00:00: low back [place] pain Medical Branch methocarbam 0 Yes [id number] 750mg Take 1 [facility] oL 750 mg 3-29 tablet by ity o f tablet 00:00: mouth (four) Medical times Branch daily as needed (muscle spasm, low back pain). For low back pain, muscle spasm. Alternate with cyclobenza manasa pregabalin Yes [id number] 1-2 cap po [facility] 75 mg 3-29 TID prn ity of capsule 00:00: low back [place] pain Medical Branch methocarbam 0 Yes [id number] 750mg Take 1 [facility] oL 750 mg 3-29 tablet by ity o f tablet 00:00: mouth (four) Medical times Branch daily as needed (muscle spasm, low back pain). For low back pain, muscle spasm. Alternate with cyclobenza manasa pregabalin 0 Yes [id number] 1-2 cap po [facility] 75 mg 3-29 TID prn ity of capsule 00:00: low back [place] pain [facility] methocarbam 2021-0 Yes [id number] 750mg Take 1 [facility] oL 750 mg 3-29 tablet by ity o f tablet 00:00: mouth 4 [place] 00 (four) Medical times Branch daily as needed (muscle spasm, low back pain). For low back pain, muscle spasm. Alternate with cyclobenza manasa pregabalin Yes [id number] 1-2 cap po [facility] 75 mg 3-29 TID prn ity of capsule 00:00: low back [place] 00 pain Medical [facility] methocarbam Yes [id number] 750mg Take 1 [facility] oL 750 mg 3-29 tablet by ity o f tablet 00:00: mouth 4 (four) Medical times Branch daily as needed (muscle spasm, low back pain). For low back pain, muscle spasm. Alternate with cyclobenza manasa pregabalin Yes [id number] 1-2 cap po [facility] 75 mg 3-29 TID prn ity of capsule 00:00: low back 00 pain [facility] methocarbam Yes [id number] 750mg Take 1 [facility] oL 750 mg 3-29 tablet by [facility]y o f tablet 00:00: mouth 4 [place] (four) Medical times Branch daily as needed (muscle spasm, low back pain). For low back pain, muscle spasm. Alternate with cyclobenza manasa pregabalin 2021- No [id number] 1-2 cap po [facility] 75 mg 3-29 12-15 TID prn ity of capsule 00:00: 00:00 low back [place] 00 :00 pain [facility] methocarbam 2021- No [id number] 750mg Take 1 [facility] oL 750 mg 3-29 12-15 tablet by [facility] of tablet 00:00: 00:00 mouth 4 [place] 00 : (four) Medical times Branch daily as needed (muscle spasm, low back pain). For low back pain, muscle spasm. Alternate with cyclobenza manasa pregabalin 2021- No [id number] 1-2 cap po [facility] 75 mg 3-29 12-15 TID prn ity of capsule 00:00: 00:00 low back [place] 00 :00 pain [facility] methocarbam 2021- No [id number] 750mg Take 1 [facility] oL 750 mg 3-29 12-15 tablet by [facility] of tablet 00:00: 00:00 mouth 4 [place] 00 : (four) Medical times Branch daily as needed (muscle spasm, low back pain). For low back pain, muscle spasm. Alternate with cyclobenza manasa ondansetron 2020-06 Yes [id number] 4mg Take 1 [facility] 4 mg 1-03 tablet by [facility]y of disintegrat 00:00: mouth [place] ing tablet 00 every 4 [facility] (four) Branch hours as needed for Nausea and Vomiting (N/V). ondansetron 2020-06 Yes [id number] 4mg Take 1 [facility] 4 mg 1-03 tablet by ity of disintegrat 00:00: mouth [place] ing tablet 00 every 4 [facility] (four) Branch hours as needed for Nausea and Vomiting (N/V). ondansetron 2020-06 Yes [id number] 4mg Take 1 [facility] 4 mg 1-03 tablet by ity of disintegrat 00:00: mouth [place] ing tablet 00 every 4 [facility] (four) Branch hours as needed for Nausea and Vomiting (N/V). ondansetron 2020-06 Yes [id number] 4mg Take 1 [facility] 4 mg 1-03 tablet by ity of disintegrat 00:00: mouth [place] ing tablet 00 every 4 [facility] (four) Branch hours as needed for Nausea and Vomiting (N/V). ondansetron 2020-06 Yes [id number] 4mg Take 1 [facility] 4 mg 1-03 tablet by [facility]y of disintegrat 00:00: mouth [place] ing tablet 00 every 4 [facility] (four) Branch hours as needed for Nausea and Vomiting (N/V). ondansetron 2020-06 Yes [id number] 4mg Take 1 [facility] 4 mg 1-03 tablet by ity of disintegrat 00:00: mouth [place] ing tablet 00 every 4 [facility] (four) Branch hours as needed for Nausea and Vomiting (N/V). ondansetron 2020-06 Yes [id number] 4mg Take 1 [facility] 4 mg 1-03 tablet by ity of disintegrat 00:00: mouth [place] ing tablet 00 every 4 [facility] (four) Branch hours as needed for Nausea and Vomiting (N/V). ondansetron 2020-06 Yes [id number] 4mg Take 1 [facility] 4 mg 1-03 tablet by ity of disintegrat 00:00: mouth [place] ing tablet 00 every 4 [facility] (four) Branch hours as needed for Nausea and Vomiting (N/V). ondansetron 2020-06 Yes [id number] 4mg Take 1 [facility] 4 mg 1-03 tablet by ity of disintegrat 00:00: mouth [place] ing tablet 00 every 4 [facility] (four) Branch hours as needed for Nausea and Vomiting (N/V). ondansetron 2020-06 Yes [id number] 4mg Take 1 [facility] 4 mg 1-03 tablet by ity of disintegrat 00:00: mouth [place] ing tablet 00 every 4 [facility] (four) Branch hours as needed for Nausea and Vomiting (N/V). ondansetron 2020-06 Yes [id number] 4mg Take 1 [facility] 4 mg 1-03 tablet by ity of disintegrat 00:00: mouth [place] ing tablet 00 every 4 [facility] (four) Branch hours as needed for Nausea and Vomiting (N/V). ondansetron 2020-06 Yes [id number] 4mg Take 1 [facility] 4 mg 1-03 tablet by ity of disintegrat 00:00: mouth [place] ing tablet 00 every 4 [facility] (four) Branch hours as needed for Nausea and Vomiting (N/V). ondansetron 2020-06 Yes [id number] 4mg Take 1 [facility] 4 mg 1-03 tablet by ity of disintegrat 00:00: mouth [place] ing tablet 00 every 4 [facility] (four) Branch hours as needed for Nausea and Vomiting (N/V). ondansetron 2020-06 Yes [id number] 4mg Take 1 [facility] 4 mg 1-03 tablet by ity of disintegrat 00:00: mouth [place] ing tablet 00 every 4 [facility] (four) Branch hours as needed for Nausea and Vomiting (N/V). ondansetron 2020-06 Yes [id number] 4mg Take 1 [facility] 4 mg 1-03 tablet by ity of disintegrat 00:00: mouth [place] ing tablet 00 every 4 [facility] (four) Branch hours as needed for Nausea and Vomiting (N/V). ondansetron 2020-06 Yes [id number] 4mg Take 1 [facility] 4 mg 1-03 tablet by ity of disintegrat 00:00: mouth [place] ing tablet 00 every 4 [facility] (four) Branch hours as needed for Nausea and Vomiting (N/V). ondansetron 2020-06 Yes [id number] 4mg Take 1 [facility] 4 mg 1-03 tablet by ity of disintegrat 00:00: mouth [place] ing tablet 00 every 4 [facility] (four) Branch hours as needed for Nausea and Vomiting (N/V). ondansetron 2020-06 Yes [id number] 4mg Take 1 [facility] 4 mg 1-03 tablet by ity of disintegrat 00:00: mouth [place] ing tablet 00 every 4 [facility] (four) Branch hours as needed for Nausea and Vomiting (N/V). ondansetron 2020-06 Yes [id number] 4mg Take 1 [facility] 4 mg 1-03 tablet by ity of disintegrat 00:00: mouth [place] ing tablet 00 every 4 [facility] (four) Branch hours as needed for Nausea and Vomiting (N/V). ondansetron 2020-06 Yes [id number] 4mg Take 1 [facility] 4 mg 1-03 tablet by ity of disintegrat 00:00: mouth [place] ing tablet 00 every 4 [facility] (four) Branch hours as needed for Nausea and Vomiting (N/V). ondansetron 2020-06 Yes [id number] 4mg Take 1 [facility] 4 mg 1-03 tablet by ity of disintegrat 00:00: mouth [place] ing tablet 00 every 4 [facility] (four) Branch hours as needed for Nausea and Vomiting (N/V). ondansetron 2020-06 Yes [id number] 4mg Take 1 [facility] 4 mg 1-03 tablet by ity of disintegrat 00:00: mouth [place] ing tablet 00 every 4 [facility] (four) Branch hours as needed for Nausea and Vomiting (N/V). ondansetron 2020-06 Yes [id number] 4mg Take 1 [facility] 4 mg 1-03 tablet by ity of disintegrat 00:00: mouth [place] ing tablet 00 every 4 [facility] (four) Branch hours as needed for Nausea and Vomiting (N/V). ondansetron 2020-06 Yes [id number] 4mg Take 1 [facility] 4 mg 1-03 tablet by ity of disintegrat 00:00: mouth [place] ing tablet 00 every 4 [facility] (four) Branch hours as needed for Nausea and Vomiting (N/V). ondansetron 2020-06 Yes [id number] 4mg Take 1 [facility] 4 mg 1-03 tablet by ity of disintegrat 00:00: mouth [place] ing tablet 00 every 4 [facility] (four) Branch hours as needed for Nausea and Vomiting (N/V). ondansetron 2020-06 Yes [id number] 4mg Take 1 [facility] 4 mg 1-03 tablet by ity of disintegrat 00:00: mouth [place] ing tablet 00 every 4 [facility] (four) Branch hours as needed for Nausea and Vomiting (N/V). ondansetron 2020-06 Yes [id number] 4mg Take 1 [facility] 4 mg 1-03 tablet by ity of disintegrat 00:00: mouth [place] ing tablet 00 every 4 [facility] (four) Branch hours as needed for Nausea and Vomiting (N/V). ondansetron 2020-06 Yes [id number] 4mg Take 1 [facility] 4 mg 1-03 tablet by ity of disintegrat 00:00: mouth [place] ing tablet 00 every 4 [facility] (four) Branch hours as needed for Nausea and Vomiting (N/V). ondansetron 2020-06 Yes [id number] 4mg Take 1 [facility] 4 mg 1-03 tablet by ity of disintegrat 00:00: mouth [place] ing tablet 00 every 4 [facility] (four) Branch hours as needed for Nausea and Vomiting (N/V). ondansetron 2020-06 Yes [id number] 4mg Take 1 [facility] 4 mg 1-03 tablet by ity of disintegrat 00:00: mouth [place] ing tablet 00 every 4 [facility] (four) Branch hours as needed for Nausea and Vomiting (N/V). ondansetron 2020-06 Yes [id number] 4mg Take 1 [facility] 4 mg 1-03 tablet by ity of disintegrat 00:00: mouth [place] ing tablet 00 every 4 [facility] (four) Branch hours as needed for Nausea and Vomiting (N/V). ondansetron 2020-06 Yes [id number] 4mg Take 1 [facility] 4 mg 1-03 tablet by ity of disintegrat 00:00: mouth [place] ing tablet 00 every 4 [facility] (four) Branch hours as needed for Nausea and Vomiting (N/V). ondansetron 2020-06 Yes [id number] 4mg Take 1 [facility] 4 mg 1-03 tablet by ity of disintegrat 00:00: mouth [place] ing tablet 00 every 4 [facility] (four) Branch hours as needed for Nausea and Vomiting (N/V). ondansetron 2020-06 Yes [id number] 4mg Take 1 [facility] 4 mg 1-03 tablet by ity of disintegrat 00:00: mouth [place] ing tablet 00 every 4 [facility] (four) Branch hours as needed for Nausea and Vomiting (N/V). ondansetron 2020-06 Yes [id number] 4mg Take 1 [facility] 4 mg 1-03 tablet by ity of disintegrat 00:00: mouth [place] ing tablet 00 every 4 [facility] (four) Branch hours as needed for Nausea and Vomiting (N/V). ondansetron 2020-06 Yes [id number] 4mg Take 1 [facility] 4 mg 1-03 tablet by ity of disintegrat 00:00: mouth [place] ing tablet 00 every 4 [facility] (four) Branch hours as needed for Nausea and Vomiting (N/V). ondansetron 2020-06 Yes [id number] 4mg Take 1 [facility] 4 mg 1-03 tablet by ity of disintegrat 00:00: mouth [place] ing tablet 00 every 4 [facility] (four) Branch hours as needed for Nausea and Vomiting (N/V). ondansetron 2020-06 Yes [id number] 4mg Take 1 [facility] 4 mg 1-03 tablet by ity of disintegrat 00:00: mouth [place] ing tablet 00 every 4 [facility] (four) Branch hours as needed for Nausea and Vomiting (N/V). ondansetron 2020-06 Yes [id number] 4mg Take 1 [facility] 4 mg 1-03 tablet by ity of disintegrat 00:00: mouth [place] ing tablet 00 every 4 Med[facility] (four) Branch hours as needed for Nausea and Vomiting (N/V). ondansetron 2020-06 Yes [id number] 4mg Take 1 [facility] 4 mg 1-03 tablet by ity of disintegrat 00:00: mouth [place] ing tablet 00 every 4 Med[facility] (four) Branch hours as needed for Nausea and Vomiting (N/V). ondansetron 2020-06 Yes [id number] 4mg Take 1 [facility] 4 mg 1-03 tablet by ity of disintegrat 00:00: mouth [place] ing tablet 00 every 4 Med[facility] (four) Branch hours as needed for Nausea and Vomiting (N/V). ondansetron 2020-06- No [id number] 4mg Take 1 [facility] 4 mg 1-03 02-08 tablet by [facility]y of disintegrat 00:00: 00:00 mouth [place] ing tablet 00 :00 every 4 [facility] (four) Branch hours as needed for Nausea and Vomiting (N/V). ondansetron 2020-06- No [id number] 4mg Take 1 [facility] 4 mg 1-03 02-08 tablet by [facility]y of disintegrat 00:00: 00:00 mouth [place] tablet 00 :00 every 4 [facility] (four) Branch hours as needed for Nausea and Vomiting (N/V). ondansetron 2020-06- No [id number] 4mg Take 1 [facility] 4 mg 1-03 02-08 tablet by [facility]y of disintegrat 00:00: 00:00 mouth [place] tablet 00 :00 every 4 [facility] (four) Branch hours as needed for Nausea and Vomiting (N/V). magnesium Yes [id number] 400mg Take 1 [facility] oxide 400 9-20 tablet by ity o f mg (241.3 00:00: mouth [place] mg 00 daily. Medical magnesium) Branch tablet magnesium 0 Yes [id number] 400mg Take 1 [facility] oxide 400 9-20 tablet by ity o f mg (241.3 00:00: mouth [place] mg 00 daily. Medical magnesium) Branch tablet magnesium 0 Yes [id number] 400mg Take 1 [facility] oxide 400 9-20 tablet by ity o f mg (241.3 00:00: mouth [place] mg 00 daily. Medical magnesium) Branch tablet magnesium 0 Yes [id number] 400mg Take 1 [facility] oxide 400 9-20 tablet by ity o f mg (241.3 00:00: mouth [place] mg 00 daily. Medical magnesium) Branch tablet magnesium 2020-0 Yes [id number] 400mg Take 1 [facility] oxide 400 9-20 tablet by ity o f mg (241.3 00:00: mouth [place] mg 00 daily. Medical magnesium) Branch tablet magnesium 2020-0 Yes [id number] 400mg Take 1 [facility] oxide 400 9-20 tablet by ity o f mg (241.3 00:00: mouth [place] mg 00 daily. Medical magnesium) Branch tablet magnesium 2020-0 Yes [id number] 400mg Take 1 [facility] oxide 400 9-20 tablet by ity o f mg (241.3 00:00: mouth [place] mg 00 daily. Medical magnesium) Branch tablet magnesium 2020-0 Yes [id number] 400mg Take 1 [facility] oxide 400 9-20 tablet by ity o f mg (241.3 00:00: mouth [place] mg 00 daily. Medical magnesium) Branch tablet magnesium 2020-0 Yes [id number] 400mg Take 1 [facility] oxide 400 9-20 tablet by ity o f mg (241.3 00:00: mouth [place] mg 00 daily. Medical magnesium) Branch tablet magnesium 2020-0 Yes [id number] 400mg Take 1 [facility] oxide 400 9-20 tablet by ity o f mg (241.3 00:00: mouth [place] mg 00 daily. Medical magnesium) Branch tablet magnesium 2020-0 Yes [id number] 400mg Take 1 [facility] oxide 400 9-20 tablet by ity o f mg (241.3 00:00: mouth [place] mg 00 daily. Medical magnesium) Branch tablet magnesium 2020-0 Yes [id number] 400mg Take 1 [facility] oxide 400 9-20 tablet by ity o f mg (241.3 00:00: mouth [place] mg 00 daily. Medical magnesium) Branch tablet magnesium 2020-0 Yes [id number] 400mg Take 1 [facility] oxide 400 9-20 tablet by ity o f mg (241.3 00:00: mouth [place] mg 00 daily. Medical magnesium) Branch tablet magnesium 2020-0 Yes [id number] 400mg Take 1 [facility] oxide 400 9-20 tablet by ity o f mg (241.3 00:00: mouth [place] mg 00 daily. Medical magnesium) Branch tablet magnesium 2020-0 Yes [id number] 400mg Take 1 [facility] oxide 400 9-20 tablet by ity o f mg (241.3 00:00: mouth [place] mg 00 daily. Medical magnesium) Branch tablet magnesium 2020-0 Yes [id number] 400mg Take 1 [facility] oxide 400 9-20 tablet by ity o f mg (241.3 00:00: mouth [place] mg 00 daily. Medical magnesium) Branch tablet magnesium 2020-0 Yes [id number] 400mg Take 1 [facility] oxide 400 9-20 tablet by ity o f mg (241.3 00:00: mouth [place] mg 00 daily. Medical magnesium) Branch tablet magnesium 2020-0 Yes [id number] 400mg Take 1 [facility] oxide 400 9-20 tablet by ity o f mg (241.3 00:00: mouth [place] mg 00 daily. Medical magnesium) Branch tablet magnesium 2020-0 Yes [id number] 400mg Take 1 [facility] oxide 400 9-20 tablet by ity o f mg (241.3 00:00: mouth [place] mg 00 daily. Medical magnesium) Branch tablet magnesium 2020-0 Yes [id number] 400mg Take 1 [facility] oxide 400 9-20 tablet by ity o f mg (241.3 00:00: mouth [place] mg 00 daily. Medical magnesium) Branch tablet magnesium 2020-0 Yes [id number] 400mg Take 1 [facility] oxide 400 9-20 tablet by ity o f mg (241.3 00:00: mouth [place] mg 00 daily. Medical magnesium) Branch tablet magnesium 2020-0 Yes [id number] 400mg Take 1 [facility] oxide 400 9-20 tablet by ity o f mg (241.3 00:00: mouth [place] mg 00 daily. Medical magnesium) Branch tablet magnesium 2020-0 Yes [id number] 400mg Take 1 [facility] oxide 400 9-20 tablet by ity o f mg (241.3 00:00: mouth [place] mg 00 daily. Medical magnesium) Branch tablet magnesium 2020-0 Yes [id number] 400mg Take 1 [facility] oxide 400 9-20 tablet by ity o f mg (241.3 00:00: mouth [place] mg 00 daily. Medical magnesium) Branch tablet magnesium 2020-0 Yes [id number] 400mg Take 1 [facility] oxide 400 9-20 tablet by ity o f mg (241.3 00:00: mouth [place] mg 00 daily. Medical magnesium) Branch tablet magnesium 2020-0 Yes [id number] 400mg Take 1 [facility] oxide 400 9-20 tablet by ity o f mg (241.3 00:00: mouth [place] mg 00 daily. Medical magnesium) Branch tablet magnesium 2020-0 Yes [id number] 400mg Take 1 [facility] oxide 400 9-20 tablet by ity o f mg (241.3 00:00: mouth [place] mg 00 daily. Medical magnesium) Branch tablet magnesium 2020-0 Yes [id number] 400mg Take 1 [facility] oxide 400 9-20 tablet by ity o f mg (241.3 00:00: mouth [place] mg 00 daily. Medical magnesium) Branch tablet magnesium 2020-0 Yes [id number] 400mg Take 1 [facility] oxide 400 9-20 tablet by ity o f mg (241.3 00:00: mouth [place] mg 00 daily. Medical magnesium) Branch tablet magnesium 2020-0 Yes [id number] 400mg Take 1 [facility] oxide 400 9-20 tablet by ity o f mg (241.3 00:00: mouth [place] mg 00 daily. Medical magnesium) Branch tablet magnesium 2020-0 Yes [id number] 400mg Take 1 [facility] oxide 400 9-20 tablet by ity o f mg (241.3 00:00: mouth [place] mg 00 daily. Medical magnesium) Branch tablet magnesium 2020-0 Yes [id number] 400mg Take 1 [facility] oxide 400 9-20 tablet by ity o f mg (241.3 00:00: mouth [place] mg 00 daily. Medical magnesium) Branch tablet magnesium 2020-0 Yes [id number] 400mg Take 1 [facility] oxide 400 9-20 tablet by ity o f mg (241.3 00:00: mouth [place] mg 00 daily. Medical magnesium) Branch tablet magnesium 2020-0 Yes [id number] 400mg Take 1 [facility] oxide 400 9-20 tablet by ity o f mg (241.3 00:00: mouth [place] mg 00 daily. Medical magnesium) Branch tablet magnesium 2020-0 Yes [id number] 400mg Take 1 [facility] oxide 400 9-20 tablet by ity o f mg (241.3 00:00: mouth [place] mg 00 daily. Medical magnesium) Branch tablet magnesium 2020-0 Yes [id number] 400mg Take 1 [facility] oxide 400 9-20 tablet by ity o f mg (241.3 00:00: mouth [place] mg 00 daily. Medical magnesium) Branch tablet magnesium 2020-0 Yes [id number] 400mg Take 1 [facility] oxide 400 9-20 tablet by ity o f mg (241.3 00:00: mouth [place] mg 00 daily. Medical magnesium) Branch tablet magnesium 2020-0 Yes [id number] 400mg Take 1 [facility] oxide 400 9-20 tablet by ity o f mg (241.3 00:00: mouth [place] mg 00 daily. Medical magnesium) Branch tablet magnesium 2020-0 Yes [id number] 400mg Take 1 [facility] oxide 400 9-20 tablet by ity o f mg (241.3 00:00: mouth [place] mg 00 daily. Medical magnesium) Branch tablet magnesium 2020-0 Yes [id number] 400mg Take 1 [facility] oxide 400 9-20 tablet by ity o f mg (241.3 00:00: mouth [place] mg 00 daily. Medical magnesium) Branch tablet magnesium 2020-0 Yes [id number] 400mg Take 1 [facility] oxide 400 9-20 tablet by ity o f mg (241.3 00:00: mouth [place] mg 00 daily. Medical magnesium) Branch tablet magnesium 2020-0 Yes [id number] 400mg Take 1 [facility] oxide 400 9-20 tablet by ity o f mg (241.3 00:00: mouth [place] mg 00 daily. Medical magnesium) Branch tablet magnesium 2020-0 Yes [id number] 400mg Take 1 [facility] oxide 400 9-20 tablet by ity o f mg (241.3 00:00: mouth [place] mg 00 daily. Medical magnesium) Branch tablet magnesium 2020-0 Yes [id number] 400mg Take 1 [facility] oxide 400 9-20 tablet by ity o f mg (241.3 00:00: mouth [place] mg 00 daily. Medical magnesium) Branch tablet magnesium 2020-0 Yes [id number] 400mg Take 1 [facility] oxide 400 9-20 tablet by ity o f mg (241.3 00:00: mouth [place] mg 00 daily. Medical magnesium) Branch tablet magnesium 2020-0 Yes [id number] 400mg Take 1 [facility] oxide 400 9-20 tablet by ity o f mg (241.3 00:00: mouth [place] mg 00 daily. Medical magnesium) Branch tablet magnesium 2020-0 Yes [id number] 400mg Take 1 [facility] oxide 400 9-20 tablet by ity o f mg (241.3 00:00: mouth [place] mg 00 daily. Medical magnesium) Branch tablet magnesium 2020-0 Yes [id number] 400mg Take 1 [facility] oxide 400 9-20 tablet by ity o f mg (241.3 00:00: mouth [place] mg 00 daily. Medical magnesium) Branch tablet magnesium 2020-0 Yes [id number] 400mg Take 1 [facility] oxide 400 9-20 tablet by ity o f mg (241.3 00:00: mouth [place] mg 00 daily. Medical magnesium) Branch tablet magnesium 2020-0 Yes [id number] 400mg Take 1 [facility] oxide 400 9-20 tablet by ity o f mg (241.3 00:00: mouth [place] mg 00 daily. Medical magnesium) Branch tablet magnesium 2020-0 Yes [id number] 400mg Take 1 [facility] oxide 400 9-20 tablet by ity o f mg (241.3 00:00: mouth [place] mg 00 daily. Medical magnesium) Branch tablet magnesium 2020-0 Yes [id number] 400mg Take 1 [facility] oxide 400 9-20 tablet by ity o f mg (241.3 00:00: mouth [place] mg 00 daily. Medical magnesium) Branch tablet magnesium 2020-0 Yes [id number] 400mg Take 1 [facility] oxide 400 9-20 tablet by ity o f mg (241.3 00:00: mouth [place] mg 00 daily. Medical magnesium) Branch tablet magnesium 2020-0 Yes [id number] 400mg Take 1 [facility] oxide 400 9-20 tablet by ity o f mg (241.3 00:00: mouth [place] mg 00 daily. Medical magnesium) Branch tablet magnesium 2020-0 Yes [id number] 400mg Take 1 [facility] oxide 400 9-20 tablet by ity o f mg (241.3 00:00: mouth [place] mg 00 daily. Medical magnesium) Branch tablet magnesium 2020-0 Yes [id number] 400mg Take 1 [facility] oxide 400 9-20 tablet by ity o f mg (241.3 00:00: mouth [place] mg 00 daily. Medical magnesium) Branch tablet magnesium 2020-0 Yes [id number] 400mg Take 1 [facility] oxide 400 9-20 tablet by ity o f mg (241.3 00:00: mouth [place] mg 00 daily. Medical magnesium) Branch tablet magnesium 2020-0 Yes [id number] 400mg Take 1 [facility] oxide 400 9-20 tablet by ity o f mg (241.3 00:00: mouth [place] mg 00 daily. Medical magnesium) Branch tablet magnesium 2020-0 Yes [id number] 400mg Take 1 [facility] oxide 400 9-20 tablet by ity o f mg (241.3 00:00: mouth [place] mg 00 daily. Medical magnesium) Branch tablet magnesium 2020-0 Yes [id number] 400mg Take 1 [facility] oxide 400 9-20 tablet by ity o f mg (241.3 00:00: mouth [place] mg 00 daily. Medical magnesium) Branch tablet magnesium 2020-0 Yes [id number] 400mg Take 1 [facility] oxide 400 9-20 tablet by ity o f mg (241.3 00:00: mouth [place] mg 00 daily. Medical magnesium) Branch tablet magnesium 2020-0 Yes [id number] 400mg Take 1 [facility] oxide 400 9-20 tablet by ity o f mg (241.3 00:00: mouth [place] mg 00 daily. Medical magnesium) Branch tablet magnesium 2020-0 Yes [id number] 400mg Take 1 [facility] oxide 400 9-20 tablet by ity o f mg (241.3 00:00: mouth [place] mg 00 daily. Medical magnesium) Branch tablet magnesium 2020-0 Yes [id number] 400mg Take 1 [facility] oxide 400 9-20 tablet by ity o f mg (241.3 00:00: mouth [place] mg 00 daily. Medical magnesium) Branch tablet magnesium 2020-0 Yes [id number] 400mg Take 1 [facility] oxide 400 9-20 tablet by ity o f mg (241.3 00:00: mouth [place] mg 00 daily. Medical magnesium) Branch tablet magnesium 2020-0 Yes [id number] 400mg Take 1 [facility] oxide 400 9-20 tablet by ity o f mg (241.3 00:00: mouth [place] mg 00 daily. Medical magnesium) Branch tablet magnesium 2020-0 Yes [id number] 400mg Take 1 [facility] oxide 400 9-20 tablet by ity o f mg (241.3 00:00: mouth [place] mg 00 daily. Medical magnesium) Branch tablet magnesium 2020-0 Yes [id number] 400mg Take 1 [facility] oxide 400 9-20 tablet by ity o f mg (241.3 00:00: mouth [place] mg 00 daily. Medical magnesium) Branch tablet magnesium 2020-0 Yes [id number] 400mg Take 1 [facility] oxide 400 9-20 tablet by ity o f mg (241.3 00:00: mouth [place] mg 00 daily. Medical magnesium) Branch tablet magnesium 2020-0 Yes [id number] 400mg Take 1 [facility] oxide 400 9-20 tablet by ity o f mg (241.3 00:00: mouth [place] mg 00 daily. Medical magnesium) Branch tablet magnesium 2020-0 Yes [id number] 400mg Take 1 [facility] oxide 400 9-20 tablet by ity o f mg (241.3 00:00: mouth [place] mg 00 daily. Medical magnesium) Branch tablet magnesium 2020-0 Yes [id number] 400mg Take 1 [facility] oxide 400 9-20 tablet by ity o f mg (241.3 00:00: mouth [place] mg 00 daily. Medical magnesium) Branch tablet magnesium 2020-0 Yes [id number] 400mg Take 1 [facility] oxide 400 9-20 tablet by ity o f mg (241.3 00:00: mouth [place] mg 00 daily. Medical magnesium) Branch tablet magnesium 2020-0 Yes [id number] 400mg Take 1 [facility] oxide 400 9-20 tablet by ity o f mg (241.3 00:00: mouth [place] mg 00 daily. Medical magnesium) Branch tablet magnesium 2020-0 Yes [id number] 400mg Take 1 [facility] oxide 400 9-20 tablet by ity o f mg (241.3 00:00: mouth [place] mg 00 daily. Medical magnesium) Branch tablet magnesium 2020-0 Yes [id number] 400mg Take 1 [facility] oxide 400 9-20 tablet by ity o f mg (241.3 00:00: mouth [place] mg 00 daily. Medical magnesium) Branch tablet magnesium 2020-0 Yes [id number] 400mg Take 1 [facility] oxide 400 9-20 tablet by ity o f mg (241.3 00:00: mouth [place] mg 00 daily. Medical magnesium) Branch tablet magnesium 2020-0 Yes [id number] 400mg Take 1 [facility] oxide 400 9-20 tablet by ity o f mg (241.3 00:00: mouth [place] mg 00 daily. Medical magnesium) Branch tablet magnesium 2020-0 Yes [id number] 400mg Take 1 [facility] oxide 400 9-20 tablet by ity o f mg (241.3 00:00: mouth [place] mg 00 daily. Medical magnesium) Branch tablet magnesium 2020-0 Yes [id number] 400mg Take 1 [facility] oxide 400 9-20 tablet by ity o f mg (241.3 00:00: mouth [place] mg 00 daily. Medical magnesium) Branch tablet magnesium 2020-0 Yes [id number] 400mg Take 1 [facility] oxide 400 9-20 tablet by ity o f mg (241.3 00:00: mouth [place] mg 00 daily. Medical magnesium) Branch tablet magnesium 2020-0 Yes [id number] 400mg Take 1 [facility] oxide 400 9-20 tablet by ity o f mg (241.3 00:00: mouth [place] mg 00 daily. Medical magnesium) Branch tablet magnesium 2020-0 Yes [id number] 400mg Take 1 [facility] oxide 400 9-20 tablet by ity o f mg (241.3 00:00: mouth [place] mg 00 daily. Medical magnesium) Branch tablet magnesium 2020-0 Yes [id number] 400mg Take 1 [facility] oxide 400 9-20 tablet by ity o f mg (241.3 00:00: mouth [place] mg 00 daily. Medical magnesium) Branch tablet magnesium 2020-0 Yes [id number] 400mg Take 1 [facility] oxide 400 9-20 tablet by ity o f mg (241.3 00:00: mouth [place] mg 00 daily. Medical magnesium) Branch tablet magnesium 2020-0 Yes [id number] 400mg Take 1 [facility] oxide 400 9-20 tablet by ity o f mg (241.3 00:00: mouth [place] mg 00 daily. Medical magnesium) Branch tablet magnesium 2020-0 Yes [id number] 400mg Take 1 [facility] oxide 400 9-20 tablet by ity o f mg (241.3 00:00: mouth [place] mg 00 daily. Medical magnesium) Branch tablet magnesium 2020-0 Yes [id number] 400mg Take 1 [facility] oxide 400 9-20 tablet by ity o f mg (241.3 00:00: mouth [place] mg 00 daily. Medical magnesium) Branch tablet magnesium 2020-0 Yes [id number] 400mg Take 1 [facility] oxide 400 9-20 tablet by ity o f mg (241.3 00:00: mouth [place] mg 00 daily. Medical magnesium) Branch tablet magnesium 2020-0 Yes [id number] 400mg Take 1 [facility] oxide 400 9-20 tablet by ity o f mg (241.3 00:00: mouth [place] mg 00 daily. Medical magnesium) Branch tablet magnesium 2020-0 Yes [id number] 400mg Take 1 [facility] oxide 400 9-20 tablet by ity o f mg (241.3 00:00: mouth [place] mg 00 daily. Medical magnesium) Branch tablet magnesium 2020-0 Yes [id number] 400mg Take 1 [facility] oxide 400 9-20 tablet by ity o f mg (241.3 00:00: mouth [place] mg 00 daily. Medical magnesium) Branch tablet magnesium 2020-0 Yes [id number] 400mg Take 1 [facility] oxide 400 9-20 tablet by ity o f mg (241.3 00:00: mouth [place] mg 00 daily. Medical magnesium) Branch tablet magnesium 2020-0 Yes [id number] 400mg Take 1 [facility] oxide 400 9-20 tablet by ity o f mg (241.3 00:00: mouth [place] mg 00 daily. Medical magnesium) Branch tablet magnesium 2020-0 Yes [id number] 400mg Take 1 [facility] oxide 400 9-20 tablet by ity o f mg (241.3 00:00: mouth [place] mg 00 daily. Medical magnesium) Branch tablet magnesium 2020-0 Yes [id number] 400mg Take 1 [facility] oxide 400 9-20 tablet by ity o f mg (241.3 00:00: mouth [place] mg 00 daily. Medical magnesium) Branch tablet magnesium 2020-0 Yes [id number] 400mg Take 1 [facility] oxide 400 9-20 tablet by ity o f mg (241.3 00:00: mouth [place] mg 00 daily. Medical magnesium) Branch tablet magnesium 2020-0 Yes [id number] 400mg Take 1 [facility] oxide 400 9-20 tablet by ity o f mg (241.3 00:00: mouth [place] mg 00 daily. Medical magnesium) Branch tablet magnesium 2020-0 Yes [id number] 400mg Take 1 [facility] oxide 400 9-20 tablet by ity o f mg (241.3 00:00: mouth [place] mg 00 daily. Medical magnesium) Branch tablet magnesium 2020-0 Yes [id number] 400mg Take 1 [facility] oxide 400 9-20 tablet by ity o f mg (241.3 00:00: mouth [place] mg 00 daily. Medical magnesium) Branch tablet erythromyci Yes [id number] .5[in_u Place 0.5 [facility] n 5 mg/gram 4-02 s] Inches in ity of (0.5 %) 00:00: both eyes [place] ophthalmic 00 4 (four) Medic al ointment times [facility] daily. erythromyci Yes [id number] .5[in_u Place 0.5 [facility] n 5 mg/gram 4-02 s] Inches in ity of (0.5 %) 00:00: both eyes [place] ophthalmic 00 4 (four) Medic al ointment times [facility] daily. erythromyci Yes [id number] .5[in_u Place 0.5 [facility] n 5 mg/gram 4-02 s] Inches in ity of (0.5 %) 00:00: both eyes [place] ophthalmic 00 4 (four) Medic al ointment times [facility] daily. erythromyci Yes [id number] .5[in_u Place 0.5 [facility] n 5 mg/gram 4-02 s] Inches in ity of (0.5 %) 00:00: both eyes [place] ophthalmic 00 4 (four) Medic al ointment times Branch daily. erythromyci 2020-0 Yes [id number] .5[in_u Place 0.5 [facility] n 5 mg/gram 4-02 s] Inches in ity of (0.5 %) 00:00: both eyes [place] ophthalmic 00 4 (four) Medic al ointment times Branch daily. erythromyci 2020- Yes [id number] .5[in_u Place 0.5 [facility] n 5 mg/gram 4-02 s] Inches in ity of (0.5 %) 00:00: both eyes [place] ophthalmic 00 4 (four) Medic al ointment times [facility] daily. erythromyci Yes [id number] .5[in_u Place 0.5 [facility] n 5 mg/gram 4-02 s] Inches in ity of (0.5 %) 00:00: both eyes [place] ophthalmic 00 4 (four) Medic al ointment times [facility] daily. erythromyci Yes [id number] .5[in_u Place 0.5 [facility] n 5 mg/gram 4-02 s] Inches in ity of (0.5 %) 00:00: both eyes [place] ophthalmic 00 4 (four) Medic al ointment times [facility] daily. erythromyci Yes [id number] .5[in_u Place 0.5 [facility] n 5 mg/gram 4-02 s] Inches in ity of (0.5 %) 00:00: both eyes [place] ophthalmic 00 4 (four) Medic al ointment times [facility] daily. erythromyci 2020- Yes [id number] .5[in_u Place 0.5 [facility] n 5 mg/gram 4-02 s] Inches in ity of (0.5 %) 00:00: both eyes [place] ophthalmic 00 4 (four) Medic al ointment times [facility] daily. erythromyci 2020- Yes [id number] .5[in_u Place 0.5 [facility] n 5 mg/gram 4-02 s] Inches in ity of (0.5 %) 00:00: both eyes [place] ophthalmic 00 4 (four) Medic al ointment times [facility] daily. erythromyci 2020- Yes [id number] .5[in_u Place 0.5 [facility] n 5 mg/gram 4-02 s] Inches in ity of (0.5 %) 00:00: both eyes [place] ophthalmic 00 4 (four) Medic al ointment times Branch daily. erythromyci Yes [id number] .5[in_u Place 0.5 [facility] n 5 mg/gram 4-02 s] Inches in ity of (0.5 %) 00:00: both eyes [place] ophthalmic 00 4 (four) Medic al ointment times Branch daily. erythromyci 2020- Yes [id number] .5[in_u Place 0.5 [facility] n 5 mg/gram 4-02 s] Inches in ity of (0.5 %) 00:00: both eyes [place] ophthalmic 00 4 (four) Medic al ointment times [facility] daily. erythromyci Yes [id number] .5[in_u Place 0.5 [facility] n 5 mg/gram 4-02 s] Inches in ity of (0.5 %) 00:00: both eyes [place] ophthalmic 00 4 (four) Medic al ointment times [facility] daily. erythromyci Yes [id number] .5[in_u Place 0.5 [facility] n 5 mg/gram 4-02 s] Inches in ity of (0.5 %) 00:00: both eyes [place] ophthalmic 00 4 (four) Medic al ointment times [facility] daily. erythromyci Yes [id number] .5[in_u Place 0.5 [facility] n 5 mg/gram 4-02 s] Inches in ity of (0.5 %) 00:00: both eyes [place] ophthalmic 00 4 (four) Medic al ointment times Branch daily. erythromyci Yes [id number] .5[in_u Place 0.5 [facility] n 5 mg/gram 4-02 s] Inches in ity of (0.5 %) 00:00: both eyes [place] ophthalmic 00 4 (four) Medic al ointment times [facility] daily. erythromyci Yes [id number] .5[in_u Place 0.5 [facility] n 5 mg/gram 4-02 s] Inches in ity of (0.5 %) 00:00: both eyes [place] ophthalmic 00 4 (four) Medic al ointment times Branch daily. erythromyci Yes [id number] .5[in_u Place 0.5 [facility] n 5 mg/gram 4-02 s] Inches in ity of (0.5 %) 00:00: both eyes [place] ophthalmic 00 4 (four) Medic al ointment times [facility] daily. erythromyci Yes [id number] .5[in_u Place 0.5 [facility] n 5 mg/gram 4-02 s] Inches in ity of (0.5 %) 00:00: both eyes [place] ophthalmic 00 4 (four) Medic al ointment times Branch daily. erythromyci Yes [id number] .5[in_u Place 0.5 [facility] n 5 mg/gram 4-02 s] Inches in ity of (0.5 %) 00:00: both eyes [place] ophthalmic 00 4 (four) Medic al ointment times Branch daily. erythromyci Yes [id number] .5[in_u Place 0.5 [facility] n 5 mg/gram 4-02 s] Inches in ity of (0.5 %) 00:00: both eyes [place] ophthalmic 00 4 (four) Medic al ointment times Branch daily. erythromyci Yes [id number] .5[in_u Place 0.5 [facility] n 5 mg/gram 4-02 s] Inches in ity of (0.5 %) 00:00: both eyes [place] ophthalmic 00 4 (four) Medic al ointment times Branch daily. erythromyci Yes [id number] .5[in_u Place 0.5 [facility] n 5 mg/gram 4-02 s] Inches in ity of (0.5 %) 00:00: both eyes [place] ophthalmic 00 4 (four) Medic al ointment times Branch daily. erythromyci Yes [id number] .5[in_u Place 0.5 [facility] n 5 mg/gram 4-02 s] Inches in ity of (0.5 %) 00:00: both eyes [place] ophthalmic 00 4 (four) Medic al ointment times Branch daily. erythromyci Yes [id number] .5[in_u Place 0.5 [facility] n 5 mg/gram 4-02 s] Inches in ity of (0.5 %) 00:00: both eyes [place] ophthalmic 00 4 (four) Medic al ointment times Branch daily. erythromyci Yes [id number] .5[in_u Place 0.5 [facility] n 5 mg/gram 4-02 s] Inches in ity of (0.5 %) 00:00: both eyes [place] ophthalmic 00 4 (four) Medic al ointment times Branch daily. erythromyci Yes [id number] .5[in_u Place 0.5 [facility] n 5 mg/gram 4-02 s] Inches in ity of (0.5 %) 00:00: both eyes [place] ophthalmic 00 4 (four) Medic al ointment times Branch daily. erythromyci Yes [id number] .5[in_u Place 0.5 [facility] n 5 mg/gram 4-02 s] Inches in ity of (0.5 %) 00:00: both eyes [place] ophthalmic 00 4 (four) Medic al ointment times Branch daily. erythromyci Yes [id number] .5[in_u Place 0.5 [facility] n 5 mg/gram 4-02 s] Inches in ity of (0.5 %) 00:00: both eyes [place] ophthalmic 00 4 (four) Medic al ointment times Branch daily. erythromyci 2020- Yes [id number] .5[in_u Place 0.5 [facility] n 5 mg/gram 4-02 s] Inches in ity of (0.5 %) 00:00: both eyes [place] ophthalmic 00 4 (four) Medic al ointment times Branch daily. erythromyci Yes [id number] .5[in_u Place 0.5 [facility] n 5 mg/gram 4-02 s] Inches in ity of (0.5 %) 00:00: both eyes [place] ophthalmic 00 4 (four) Medic al ointment times Branch daily. erythromyci Yes [id number] .5[in_u Place 0.5 [facility] n 5 mg/gram 4-02 s] Inches in ity of (0.5 %) 00:00: both eyes [place] ophthalmic 00 4 (four) Medic al ointment times Branch daily. erythromyci Yes [id number] .5[in_u Place 0.5 [facility] n 5 mg/gram 4-02 s] Inches in ity of (0.5 %) 00:00: both eyes [place] ophthalmic 00 4 (four) Medic al ointment times Branch daily. erythromyci Yes [id number] .5[in_u Place 0.5 [facility] n 5 mg/gram 4-02 s] Inches in ity of (0.5 %) 00:00: both eyes [place] ophthalmic 00 4 (four) Medic al ointment times Branch daily. erythromyci Yes [id number] .5[in_u Place 0.5 [facility] n 5 mg/gram 4-02 s] Inches in ity of (0.5 %) 00:00: both eyes [place] ophthalmic 00 4 (four) Medic al ointment times Branch daily. erythromyci Yes [id number] .5[in_u Place 0.5 [facility] n 5 mg/gram 4-02 s] Inches in ity of (0.5 %) 00:00: both eyes [place] ophthalmic 00 4 (four) Medic al ointment times Branch daily. erythromyci Yes [id number] .5[in_u Place 0.5 [facility] n 5 mg/gram 4-02 s] Inches in ity of (0.5 %) 00:00: both eyes [place] ophthalmic 00 4 (four) Medic al ointment times Branch daily. erythromyci Yes [id number] .5[in_u Place 0.5 [facility] n 5 mg/gram 4-02 s] Inches in ity of (0.5 %) 00:00: both eyes [place] ophthalmic 00 4 (four) Medic al ointment times Branch daily. erythromyci Yes [id number] .5[in_u Place 0.5 [facility] n 5 mg/gram 4-02 s] Inches in ity of (0.5 %) 00:00: both eyes [place] ophthalmic 00 4 (four) Medic al ointment times Branch daily. erythromyci 2020- Yes [id number] .5[in_u Place 0.5 [facility] n 5 mg/gram 4-02 s] Inches in ity of (0.5 %) 00:00: both eyes [place] ophthalmic 00 4 (four) Medic al ointment times Branch daily. erythromyci Yes [id number] .5[in_u Place 0.5 [facility] n 5 mg/gram 4-02 s] Inches in ity of (0.5 %) 00:00: both eyes [place] ophthalmic 00 4 (four) Medic al ointment times Branch daily. erythromyci Yes [id number] .5[in_u Place 0.5 [facility] n 5 mg/gram 4-02 s] Inches in ity of (0.5 %) 00:00: both eyes [place] ophthalmic 00 4 (four) Medic al ointment times Branch daily. erythromyci Yes [id number] .5[in_u Place 0.5 [facility] n 5 mg/gram 4-02 s] Inches in ity of (0.5 %) 00:00: both eyes [place] ophthalmic 00 4 (four) Medic al ointment times Branch daily. erythromyci Yes [id number] .5[in_u Place 0.5 [facility] n 5 mg/gram 4-02 s] Inches in ity of (0.5 %) 00:00: both eyes [place] ophthalmic 00 4 (four) Medic al ointment times Branch daily. erythromyci Yes [id number] .5[in_u Place 0.5 [facility] n 5 mg/gram 4-02 s] Inches in ity of (0.5 %) 00:00: both eyes [place] ophthalmic 00 4 (four) Medic al ointment times Branch daily. erythromyci Yes [id number] .5[in_u Place 0.5 [facility] n 5 mg/gram 4-02 s] Inches in ity of (0.5 %) 00:00: both eyes [place] ophthalmic 00 4 (four) Medic al ointment times Branch daily. erythromyci 2020- Yes [id number] .5[in_u Place 0.5 [facility] n 5 mg/gram 4-02 s] Inches in ity of (0.5 %) 00:00: both eyes [place] ophthalmic 00 4 (four) Medic al ointment times Branch daily. erythromyci 2020- Yes [id number] .5[in_u Place 0.5 [facility] n 5 mg/gram 4-02 s] Inches in ity of (0.5 %) 00:00: both eyes [place] ophthalmic 00 4 (four) Medic al ointment times Branch daily. erythromyci 2020- Yes [id number] .5[in_u Place 0.5 [facility] n 5 mg/gram 4-02 s] Inches in ity of (0.5 %) 00:00: both eyes [place] ophthalmic 00 4 (four) Medic al ointment times Branch daily. erythromyci Yes [id number] .5[in_u Place 0.5 [facility] n 5 mg/gram 4-02 s] Inches in ity of (0.5 %) 00:00: both eyes [place] ophthalmic 00 4 (four) Medic al ointment times Branch daily. erythromyci Yes [id number] .5[in_u Place 0.5 [facility] n 5 mg/gram 4-02 s] Inches in ity of (0.5 %) 00:00: both eyes [place] ophthalmic 00 4 (four) Medic al ointment times Branch daily. erythromyci Yes [id number] .5[in_u Place 0.5 [facility] n 5 mg/gram 4-02 s] Inches in ity of (0.5 %) 00:00: both eyes [place] ophthalmic 00 4 (four) Medic al ointment times Branch daily. erythromyci 2020-0 Yes [id number] .5[in_u Place 0.5 [facility] n 5 mg/gram 4-02 s] Inches in ity of (0.5 %) 00:00: both eyes [place] ophthalmic 00 4 (four) Medic al ointment times Branch daily. erythromyci 2020- Yes [id number] .5[in_u Place 0.5 [facility] n 5 mg/gram 4-02 s] Inches in ity of (0.5 %) 00:00: both eyes [place] ophthalmic 00 4 (four) Medic al ointment times Branch daily. erythromyci 2020- Yes [id number] .5[in_u Place 0.5 [facility] n 5 mg/gram 4-02 s] Inches in ity of (0.5 %) 00:00: both eyes [place] ophthalmic 00 4 (four) Medic al ointment times Branch daily. erythromyci Yes [id number] .5[in_u Place 0.5 [facility] n 5 mg/gram 4-02 s] Inches in ity of (0.5 %) 00:00: both eyes [place] ophthalmic 00 4 (four) Medic al ointment times Branch daily. erythromyci Yes [id number] .5[in_u Place 0.5 [facility] n 5 mg/gram 4-02 s] Inches in ity of (0.5 %) 00:00: both eyes [place] ophthalmic 00 4 (four) Medic al ointment times Branch daily. erythromyci Yes [id number] .5[in_u Place 0.5 [facility] n 5 mg/gram 4-02 s] Inches in ity of (0.5 %) 00:00: both eyes [place] ophthalmic 00 4 (four) Medic al ointment times Branch daily. erythromyci Yes [id number] .5[in_u Place 0.5 [facility] n 5 mg/gram 4-02 s] Inches in ity of (0.5 %) 00:00: both eyes [place] ophthalmic 00 4 (four) Medic al ointment times Branch daily. erythromyci Yes [id number] .5[in_u Place 0.5 [facility] n 5 mg/gram 4-02 s] Inches in ity of (0.5 %) 00:00: both eyes [place] ophthalmic 00 4 (four) Medic al ointment times Branch daily. erythromyci Yes [id number] .5[in_u Place 0.5 [facility] n 5 mg/gram 4-02 s] Inches in ity of (0.5 %) 00:00: both eyes [place] ophthalmic 00 4 (four) Medic al ointment times Branch daily. erythromyci 2020- Yes [id number] .5[in_u Place 0.5 [facility] n 5 mg/gram 4-02 s] Inches in ity of (0.5 %) 00:00: both eyes [place] ophthalmic 00 4 (four) Medic al ointment times Branch daily. erythromyci 2020- Yes [id number] .5[in_u Place 0.5 [facility] n 5 mg/gram 4-02 s] Inches in ity of (0.5 %) 00:00: both eyes [place] ophthalmic 00 4 (four) Medic al ointment times Branch daily. erythromyci 2020- Yes [id number] .5[in_u Place 0.5 [facility] n 5 mg/gram 4-02 s] Inches in ity of (0.5 %) 00:00: both eyes [place] ophthalmic 00 4 (four) Medic al ointment times Branch daily. erythromyci Yes [id number] .5[in_u Place 0.5 [facility] n 5 mg/gram 4-02 s] Inches in ity of (0.5 %) 00:00: both eyes [place] ophthalmic 00 4 (four) Medic al ointment times Branch daily. erythromyci 0 Yes [id number] .5[in_u Place 0.5 [facility] n 5 mg/gram 4-02 s] Inches in ity of (0.5 %) 00:00: both eyes [place] ophthalmic 00 4 (four) Medic al ointment times Branch daily. erythromyci 2020-0 Yes [id number] .5[in_u Place 0.5 [facility] n 5 mg/gram 4-02 s] Inches in ity of (0.5 %) 00:00: both eyes [place] ophthalmic 00 4 (four) Medic al ointment times Branch daily. erythromyci 2020-0 Yes [id number] .5[in_u Place 0.5 [facility] n 5 mg/gram 4-02 s] Inches in ity of (0.5 %) 00:00: both eyes [place] ophthalmic 00 4 (four) Medic al ointment times Branch daily. erythromyci Yes [id number] .5[in_u Place 0.5 [facility] n 5 mg/gram 4-02 s] Inches in ity of (0.5 %) 00:00: both eyes [place] ophthalmic 00 4 (four) Medic al ointment times Branch daily. erythromyci Yes [id number] .5[in_u Place 0.5 [facility] n 5 mg/gram 4-02 s] Inches in ity of (0.5 %) 00:00: both eyes [place] ophthalmic 00 4 (four) Medic al ointment times Branch daily. erythromyci Yes [id number] .5[in_u Place 0.5 [facility] n 5 mg/gram 4-02 s] Inches in ity of (0.5 %) 00:00: both eyes [place] ophthalmic 00 4 (four) Medic al ointment times Branch daily. erythromyci Yes [id number] .5[in_u Place 0.5 [facility] n 5 mg/gram 4-02 s] Inches in ity of (0.5 %) 00:00: both eyes [place] ophthalmic 00 4 (four) Medic al ointment times Branch daily. erythromyci Yes [id number] .5[in_u Place 0.5 [facility] n 5 mg/gram 4-02 s] Inches in ity of (0.5 %) 00:00: both eyes [place] ophthalmic 00 4 (four) Medic al ointment times Branch daily. erythromyci Yes [id number] .5[in_u Place 0.5 [facility] n 5 mg/gram 4-02 s] Inches in ity of (0.5 %) 00:00: both eyes [place] ophthalmic 00 4 (four) Medic al ointment times Branch daily. erythromyci Yes [id number] .5[in_u Place 0.5 [facility] n 5 mg/gram 4-02 s] Inches in ity of (0.5 %) 00:00: both eyes [place] ophthalmic 00 4 (four) Medic al ointment times Branch daily. erythromyci Yes [id number] .5[in_u Place 0.5 [facility] n 5 mg/gram 4-02 s] Inches in ity of (0.5 %) 00:00: both eyes [place] ophthalmic 00 4 (four) Medic al ointment times Branch daily. erythromyci 2020- Yes [id number] .5[in_u Place 0.5 [facility] n 5 mg/gram 4-02 s] Inches in ity of (0.5 %) 00:00: both eyes [place] ophthalmic 00 4 (four) Medic al ointment times Branch daily. erythromyci 2020- Yes [id number] .5[in_u Place 0.5 [facility] n 5 mg/gram 4-02 s] Inches in ity of (0.5 %) 00:00: both eyes [place] ophthalmic 00 4 (four) Medic al ointment times Branch daily. erythromyci Yes [id number] .5[in_u Place 0.5 [facility] n 5 mg/gram 4-02 s] Inches in ity of (0.5 %) 00:00: both eyes [place] ophthalmic 00 4 (four) Medic al ointment times Branch daily. erythromyci Yes [id number] .5[in_u Place 0.5 [facility] n 5 mg/gram 4-02 s] Inches in ity of (0.5 %) 00:00: both eyes [place] ophthalmic 00 4 (four) Medic al ointment times Branch daily. erythromyci Yes [id number] .5[in_u Place 0.5 [facility] n 5 mg/gram 4-02 s] Inches in ity of (0.5 %) 00:00: both eyes [place] ophthalmic 00 4 (four) Medic al ointment times Branch daily. erythromyci Yes [id number] .5[in_u Place 0.5 [facility] n 5 mg/gram 4-02 s] Inches in ity of (0.5 %) 00:00: both eyes [place] ophthalmic 00 4 (four) Medic al ointment times Branch daily. erythromyci Yes [id number] .5[in_u Place 0.5 [facility] n 5 mg/gram 4-02 s] Inches in ity of (0.5 %) 00:00: both eyes [place] ophthalmic 00 4 (four) Medic al ointment times Branch daily. erythromyci Yes [id number] .5[in_u Place 0.5 [facility] n 5 mg/gram 4-02 s] Inches in ity of (0.5 %) 00:00: both eyes [place] ophthalmic 00 4 (four) Medic al ointment times Branch daily. erythromyci Yes [id number] .5[in_u Place 0.5 [facility] n 5 mg/gram 4-02 s] Inches in ity of (0.5 %) 00:00: both eyes [place] ophthalmic 00 4 (four) Medic al ointment times Branch daily. budesonide- Yes [id number] 2{puff} Inhale 2 [facility] formoteroL 3-19 Puffs 2 ity of 160-4.5 00:00: (two) [place] mcg/actuati 00 times Medical on inhaler daily. [facility] budesonide- Yes [id number] 2{puff} Inhale 2 [facility] formoteroL 3-19 Puffs 2 ity of 160-4.5 00:00: (two) [place] mcg/actuati 00 times Medical on inhaler daily. [facility] budesonide- Yes [id number] 2{puff} Inhale 2 [facility] formoteroL 3-19 Puffs 2 ity of 160-4.5 00:00: (two) [place] mcg/actuati 00 times Medical on inhaler daily. [facility] budesonide- Yes [id number] 2{puff} Inhale 2 [facility] formoteroL 3-19 Puffs 2 ity of 160-4.5 00:00: (two) [place] mcg/actuati 00 times Medical on inhaler daily. [facility] budesonide- Yes [id number] 2{puff} Inhale 2 [facility] formoteroL 3-19 Puffs 2 ity of 160-4.5 00:00: (two) [place] mcg/actuati 00 times Medical on inhaler daily. [facility] budesonide- Yes [id number] 2{puff} Inhale 2 [facility] formoteroL 3-19 Puffs 2 ity of 160-4.5 00:00: (two) [place] mcg/actuati 00 times Medical on inhaler daily. [facility] budesonide- Yes [id number] 2{puff} Inhale 2 [facility] formoteroL 3-19 Puffs 2 ity of 160-4.5 00:00: (two) [place] mcg/actuati 00 times Medical on inhaler daily. [facility] budesonide Yes [id number] 2{puff} Inhale 2 [facility] formoteroL 3-19 Puffs 2 ity of 160-4.5 00:00: (two) [place] mcg/actuati 00 times Medical on inhaler daily. Branch budesonide Yes [id number] 2{puff} Inhale 2 [facility] formoteroL 3-19 Puffs 2 ity of 160-4.5 00:00: (two) [place] mcg/actuati 00 times Medical on inhaler daily. [facility] budesonide Yes [id number] 2{puff} Inhale 2 [facility] formoteroL 3-19 Puffs 2 ity of 160-4.5 00:00: (two) [place] mcg/actuati 00 times Medical on inhaler daily. [facility] budesonide Yes [id number] 2{puff} Inhale 2 [facility] formoteroL 3-19 Puffs 2 ity of 160-4.5 00:00: (two) [place] mcg/actuati 00 times Medical on inhaler daily. [facility] budesonide Yes [id number] 2{puff} Inhale 2 [facility] formoteroL 3-19 Puffs 2 ity of 160-4.5 00:00: (two) [place] mcg/actuati 00 times Medical on inhaler daily. [facility] budesonide Yes [id number] 2{puff} Inhale 2 [facility] formoteroL 3-19 Puffs 2 ity of 160-4.5 00:00: (two) [place] mcg/actuati 00 times Medical on inhaler daily. Branch budesonide- Yes [id number] 2{puff} Inhale 2 [facility] formoteroL 3-19 Puffs 2 ity of 160-4.5 00:00: (two) [place] mcg/actuati 00 times Medical on inhaler daily. Branch budesonide Yes [id number] 2{puff} Inhale 2 [facility] formoteroL 3-19 Puffs 2 ity of 160-4.5 00:00: (two) [place] mcg/actuati 00 times Medical on inhaler daily. Branch budesonide- Yes [id number] 2{puff} Inhale 2 [facility] formoteroL 3-19 Puffs 2 ity of 160-4.5 00:00: (two) [place] mcg/actuati 00 times Medical on inhaler daily. Branch budesonide- Yes [id number] 2{puff} Inhale 2 [facility] formoteroL 3-19 Puffs 2 ity of 160-4.5 00:00: (two) [place] mcg/actuati 00 times Medical on inhaler daily. Branch budesonide- Yes [id number] 2{puff} Inhale 2 [facility] formoteroL 3-19 Puffs 2 ity of 160-4.5 00:00: (two) [place] mcg/actuati 00 times Medical on inhaler daily. [facility] budesonide- Yes [id number] 2{puff} Inhale 2 [facility] formoteroL 3-19 Puffs 2 ity of 160-4.5 00:00: (two) [place] mcg/actuati 00 times Medical on inhaler daily. Branch budesonide- Yes [id number] 2{puff} Inhale 2 [facility] formoteroL 3-19 Puffs 2 ity of 160-4.5 00:00: (two) [place] mcg/actuati 00 times Medical on inhaler daily. [facility] budesonide- Yes [id number] 2{puff} Inhale 2 [facility] formoteroL 3-19 Puffs 2 ity of 160-4.5 00:00: (two) [place] mcg/actuati 00 times Medical on inhaler daily. Branch budesonide- Yes [id number] 2{puff} Inhale 2 [facility] formoteroL 3-19 Puffs 2 ity of 160-4.5 00:00: (two) [place] mcg/actuati 00 times Medical on inhaler daily. Branch budesonide- Yes [id number] 2{puff} Inhale 2 [facility] formoteroL 3-19 Puffs 2 ity of 160-4.5 00:00: (two) [place] mcg/actuati 00 times Medical on inhaler daily. Branch budesonide- Yes [id number] 2{puff} Inhale 2 [facility] formoteroL 3-19 Puffs 2 ity of 160-4.5 00:00: (two) [place] mcg/actuati 00 times Medical on inhaler daily. Branch budesonide- Yes [id number] 2{puff} Inhale 2 [facility] formoteroL 3-19 Puffs 2 ity of 160-4.5 00:00: (two) [place] mcg/actuati 00 times Medical on inhaler daily. Branch budesonide- Yes [id number] 2{puff} Inhale 2 [facility] formoteroL 3-19 Puffs 2 ity of 160-4.5 00:00: (two) [place] mcg/actuati 00 times Medical on inhaler daily. Branch budesonide- Yes [id number] 2{puff} Inhale 2 [facility] formoteroL 3-19 Puffs 2 ity of 160-4.5 00:00: (two) [place] mcg/actuati 00 times Medical on inhaler daily. Branch budesonide- Yes [id number] 2{puff} Inhale 2 [facility] formoteroL 3-19 Puffs 2 ity of 160-4.5 00:00: (two) [place] mcg/actuati 00 times Medical on inhaler daily. Branch budesonide- Yes [id number] 2{puff} Inhale 2 [facility] formoteroL 3-19 Puffs 2 ity of 160-4.5 00:00: (two) [place] mcg/actuati 00 times Medical on inhaler daily. Branch budesonide- Yes [id number] 2{puff} Inhale 2 [facility] formoteroL 3-19 Puffs 2 ity of 160-4.5 00:00: (two) [place] mcg/actuati 00 times Medical on inhaler daily. Branch budesonide- Yes [id number] 2{puff} Inhale 2 [facility] formoteroL 3-19 Puffs 2 ity of 160-4.5 00:00: (two) [place] mcg/actuati 00 times Medical on inhaler daily. Branch budesonide- Yes [id number] 2{puff} Inhale 2 [facility] formoteroL 3-19 Puffs 2 ity of 160-4.5 00:00: (two) [place] mcg/actuati 00 times [facility] on inhaler daily. [facility] budesonide Yes [id number] 2{puff} Inhale 2 [facility] formoteroL 3-19 Puffs 2 ity of 160-4.5 00:00: (two) [place] mcg/actuati 00 times Medical on inhaler daily. [facility] budesonide Yes [id number] 2{puff} Inhale 2 [facility] formoteroL 3-19 Puffs 2 ity of 160-4.5 00:00: (two) [place] mcg/actuati 00 times Medical on inhaler daily. [facility] budesonide Yes [id number] 2{puff} Inhale 2 [facility] formoteroL 3-19 Puffs 2 ity of 160-4.5 00:00: (two) [place] mcg/actuati 00 times Medical on inhaler daily. [facility] budesonide Yes [id number] 2{puff} Inhale 2 [facility] formoteroL 3-19 Puffs 2 ity of 160-4.5 00:00: (two) [place] mcg/actuati 00 times Medical on inhaler daily. [facility] budesonide Yes [id number] 2{puff} Inhale 2 [facility] formoteroL 3-19 Puffs 2 ity of 160-4.5 00:00: (two) [place] mcg/actuati 00 times Medical on inhaler daily. [facility] budesonide Yes [id number] 2{puff} Inhale 2 [facility] formoteroL 3-19 Puffs 2 ity of 160-4.5 00:00: (two) [place] mcg/actuati 00 times Medical on inhaler daily. [facility] budesonide- Yes [id number] 2{puff} Inhale 2 [facility] formoteroL 3-19 Puffs 2 ity of 160-4.5 00:00: (two) [place] mcg/actuati 00 times Medical on inhaler daily. [facility] budesonide Yes [id number] 2{puff} Inhale 2 [facility] formoteroL 3-19 Puffs 2 ity of 160-4.5 00:00: (two) [place] mcg/actuati 00 times Medical on inhaler daily. [facility] budesonide- Yes [id number] 2{puff} Inhale 2 [facility] formoteroL 3-19 Puffs 2 ity of 160-4.5 00:00: (two) [place] mcg/actuati 00 times Medical on inhaler daily. [facility] budesonide- Yes [id number] 2{puff} Inhale 2 [facility] formoteroL 3-19 Puffs 2 ity of 160-4.5 00:00: (two) [place] mcg/actuati 00 times Medical on inhaler daily. [facility] budesonide- Yes [id number] 2{puff} Inhale 2 [facility] formoteroL 3-19 Puffs 2 ity of 160-4.5 00:00: (two) [place] mcg/actuati 00 times Medical on inhaler daily. [facility] budesonide- Yes [id number] 2{puff} Inhale 2 [facility] formoteroL 3-19 Puffs 2 ity of 160-4.5 00:00: (two) [place] mcg/actuati 00 times Medical on inhaler daily. [facility] budesonide- Yes [id number] 2{puff} Inhale 2 [facility] formoteroL 3-19 Puffs 2 ity of 160-4.5 00:00: (two) [place] mcg/actuati 00 times Medical on inhaler daily. [facility] budesonide- Yes [id number] 2{puff} Inhale 2 [facility] formoteroL 3-19 Puffs 2 ity of 160-4.5 00:00: (two) [place] mcg/actuati 00 times Medical on inhaler daily. [facility] budesonide- Yes [id number] 2{puff} Inhale 2 [facility] formoteroL 3-19 Puffs 2 ity of 160-4.5 00:00: (two) [place] mcg/actuati 00 times Medical on inhaler daily. [facility] budesonide- Yes [id number] 2{puff} Inhale 2 [facility] formoteroL 3-19 Puffs 2 ity of 160-4.5 00:00: (two) [place] mcg/actuati 00 times Medical on inhaler daily. [facility] budesonide- Yes [id number] 2{puff} Inhale 2 [facility] formoteroL 3-19 Puffs 2 ity of 160-4.5 00:00: (two) [place] mcg/actuati 00 times Medical on inhaler daily. [facility] budesonide- Yes [id number] 2{puff} Inhale 2 [facility] formoteroL 3-19 Puffs 2 ity of 160-4.5 00:00: (two) [place] mcg/actuati 00 times Medical on inhaler daily. [facility] budesonide- Yes [id number] 2{puff} Inhale 2 [facility] formoteroL 3-19 Puffs 2 ity of 160-4.5 00:00: (two) [place] mcg/actuati 00 times Medical on inhaler daily. [facility] budesonide- Yes [id number] 2{puff} Inhale 2 [facility] formoteroL 3-19 Puffs 2 ity of 160-4.5 00:00: (two) [place] mcg/actuati 00 times Medical on inhaler daily. [facility] budesonide- Yes [id number] 2{puff} Inhale 2 [facility] formoteroL 3-19 Puffs 2 ity of 160-4.5 00:00: (two) [place] mcg/actuati 00 times Medical on inhaler daily. [facility] budesonide- Yes [id number] 2{puff} Inhale 2 [facility] formoteroL 3-19 Puffs 2 ity of 160-4.5 00:00: (two) [place] mcg/actuati 00 times Medical on inhaler daily. [facility] budesonide- Yes [id number] 2{puff} Inhale 2 [facility] formoteroL 3-19 Puffs 2 ity of 160-4.5 00:00: (two) [place] mcg/actuati 00 times Medical on inhaler daily. [facility] budesonide- Yes [id number] 2{puff} Inhale 2 [facility] formoteroL 3-19 Puffs 2 ity of 160-4.5 00:00: (two) [place] mcg/actuati 00 times Medical on inhaler daily. [facility] budesonide- Yes [id number] 2{puff} Inhale 2 [facility] formoteroL 3-19 Puffs 2 ity of 160-4.5 00:00: (two) [place] mcg/actuati 00 times Medical on inhaler daily. [facility] budesonide Yes [id number] 2{puff} Inhale 2 [facility] formoteroL 3-19 Puffs 2 ity of 160-4.5 00:00: (two) [place] mcg/actuati 00 times Medical on inhaler daily. [facility] budesonide Yes [id number] 2{puff} Inhale 2 [facility] formoteroL 3-19 Puffs 2 ity of 160-4.5 00:00: (two) [place] mcg/actuati 00 times Medical on inhaler daily. [facility] budesonide Yes [id number] 2{puff} Inhale 2 [facility] formoteroL 3-19 Puffs 2 ity of 160-4.5 00:00: (two) [place] mcg/actuati 00 times Medical on inhaler daily. [facility] budesonide Yes [id number] 2{puff} Inhale 2 [facility] formoteroL 3-19 Puffs 2 ity of 160-4.5 00:00: (two) [place] mcg/actuati 00 times Medical on inhaler daily. [facility] budesonide Yes [id number] 2{puff} Inhale 2 [facility] formoteroL 3-19 Puffs 2 ity of 160-4.5 00:00: (two) [place] mcg/actuati 00 times Medical on inhaler daily. [facility] budesonide Yes [id number] 2{puff} Inhale 2 [facility] formoteroL 3-19 Puffs 2 ity of 160-4.5 00:00: (two) [place] mcg/actuati 00 times Medical on inhaler daily. [facility] budesonide- Yes [id number] 2{puff} Inhale 2 [facility] formoteroL 3-19 Puffs 2 ity of 160-4.5 00:00: (two) [place] mcg/actuati 00 times Medical on inhaler daily. [facility] budesonide Yes [id number] 2{puff} Inhale 2 [facility] formoteroL 3-19 Puffs 2 ity of 160-4.5 00:00: (two) [place] mcg/actuati 00 times Medical on inhaler daily. [facility] budesonide- Yes [id number] 2{puff} Inhale 2 [facility] formoteroL 3-19 Puffs 2 ity of 160-4.5 00:00: (two) [place] mcg/actuati 00 times Medical on inhaler daily. [facility] budesonide- Yes [id number] 2{puff} Inhale 2 [facility] formoteroL 3-19 Puffs 2 ity of 160-4.5 00:00: (two) [place] mcg/actuati 00 times Medical on inhaler daily. [facility] budesonide- Yes [id number] 2{puff} Inhale 2 [facility] formoteroL 3-19 Puffs 2 ity of 160-4.5 00:00: (two) [place] mcg/actuati 00 times Medical on inhaler daily. [facility] budesonide- Yes [id number] 2{puff} Inhale 2 [facility] formoteroL 3-19 Puffs 2 ity of 160-4.5 00:00: (two) [place] mcg/actuati 00 times Medical on inhaler daily. [facility] budesonide- Yes [id number] 2{puff} Inhale 2 [facility] formoteroL 3-19 Puffs 2 ity of 160-4.5 00:00: (two) [place] mcg/actuati 00 times Medical on inhaler daily. [facility] budesonide- Yes [id number] 2{puff} Inhale 2 [facility] formoteroL 3-19 Puffs 2 ity of 160-4.5 00:00: (two) [place] mcg/actuati 00 times Medical on inhaler daily. [facility] budesonide- Yes [id number] 2{puff} Inhale 2 [facility] formoteroL 3-19 Puffs 2 ity of 160-4.5 00:00: (two) [place] mcg/actuati 00 times Medical on inhaler daily. [facility] budesonide- Yes [id number] 2{puff} Inhale 2 [facility] formoteroL 3-19 Puffs 2 ity of 160-4.5 00:00: (two) [place] mcg/actuati 00 times Medical on inhaler daily. [facility] budesonide- Yes [id number] 2{puff} Inhale 2 [facility] formoteroL 3-19 Puffs 2 ity of 160-4.5 00:00: (two) [place] mcg/actuati 00 times Medical on inhaler daily. [facility] budesonide- Yes [id number] 2{puff} Inhale 2 [facility] formoteroL 3-19 Puffs 2 ity of 160-4.5 00:00: (two) [place] mcg/actuati 00 times Medical on inhaler daily. [facility] budesonide- Yes [id number] 2{puff} Inhale 2 [facility] formoteroL 3-19 Puffs 2 ity of 160-4.5 00:00: (two) [place] mcg/actuati 00 times Medical on inhaler daily. [facility] budesonide- Yes [id number] 2{puff} Inhale 2 [facility] formoteroL 3-19 Puffs 2 ity of 160-4.5 00:00: (two) [place] mcg/actuati 00 times Medical on inhaler daily. [facility] budesonide- Yes [id number] 2{puff} Inhale 2 [facility] formoteroL 3-19 Puffs 2 ity of 160-4.5 00:00: (two) [place] mcg/actuati 00 times Medical on inhaler daily. [facility] budesonide- Yes [id number] 2{puff} Inhale 2 [facility] formoteroL 3-19 Puffs 2 ity of 160-4.5 00:00: (two) [place] mcg/actuati 00 times Medical on inhaler daily. [facility] budesonide- Yes [id number] 2{puff} Inhale 2 [facility] formoteroL 3-19 Puffs 2 ity of 160-4.5 00:00: (two) [place] mcg/actuati 00 times Medical on inhaler daily. [facility] budesonide- Yes [id number] 2{puff} Inhale 2 [facility] formoteroL 3-19 Puffs 2 ity of 160-4.5 00:00: (two) [place] mcg/actuati 00 times Medical on inhaler daily. [facility] budesonide- Yes [id number] 2{puff} Inhale 2 [facility] formoteroL 3-19 Puffs 2 ity of 160-4.5 00:00: (two) [place] mcg/actuati 00 times Medical on inhaler daily. [facility] budesonide Yes [id number] 2{puff} Inhale 2 [facility] formoteroL 3-19 Puffs 2 ity of 160-4.5 00:00: (two) [place] mcg/actuati 00 times Medical on inhaler daily. [facility] budesonide Yes [id number] 2{puff} Inhale 2 [facility] formoteroL 3-19 Puffs 2 ity of 160-4.5 00:00: (two) [place] mcg/actuati 00 times Medical on inhaler daily. [facility] budesonide Yes [id number] 2{puff} Inhale 2 [facility] formoteroL 3-19 Puffs 2 ity of 160-4.5 00:00: (two) [place] mcg/actuati 00 times Medical on inhaler daily. [facility] budesonide Yes [id number] 2{puff} Inhale 2 [facility] formoteroL 3-19 Puffs 2 ity of 160-4.5 00:00: (two) [place] mcg/actuati 00 times Medical on inhaler daily. [facility] budesonide Yes [id number] 2{puff} Inhale 2 [facility] formoteroL 3-19 Puffs 2 ity of 160-4.5 00:00: (two) [place] mcg/actuati 00 times Medical on inhaler daily. [facility] budesonide Yes [id number] 2{puff} Inhale 2 [facility] formoteroL 3-19 Puffs 2 ity of 160-4.5 00:00: (two) [place] mcg/actuati 00 times Medical on inhaler daily. [facility] budesonide- Yes [id number] 2{puff} Inhale 2 [facility] formoteroL 3-19 Puffs 2 ity of 160-4.5 00:00: (two) [place] mcg/actuati 00 times Medical on inhaler daily. [facility] budesonide Yes [id number] 2{puff} Inhale 2 [facility] formoteroL 3-19 Puffs 2 ity of 160-4.5 00:00: (two) [place] mcg/actuati 00 times Medical on inhaler daily. [facility] budesonide- Yes [id number] 2{puff} Inhale 2 [facility] formoteroL 3-19 Puffs 2 ity of 160-4.5 00:00: (two) [place] mcg/actuati 00 times Medical on inhaler daily. [facility] budesonide- Yes [id number] 2{puff} Inhale 2 [facility] formoteroL 3-19 Puffs 2 ity of 160-4.5 00:00: (two) [place] mcg/actuati 00 times Medical on inhaler daily. [facility] budesonide- Yes [id number] 2{puff} Inhale 2 [facility] formoteroL 3-19 Puffs 2 ity of 160-4.5 00:00: (two) [place] mcg/actuati 00 times Medical on inhaler daily. [facility] budesonide- Yes [id number] 2{puff} Inhale 2 [facility] formoteroL 3-19 Puffs 2 ity of 160-4.5 00:00: (two) [place] mcg/actuati 00 times Medical on inhaler daily. [facility] budesonide- Yes [id number] 2{puff} Inhale 2 [facility] formoteroL 3-19 Puffs 2 ity of 160-4.5 00:00: (two) [place] mcg/actuati 00 times Medical on inhaler daily. [facility] budesonide- Yes [id number] 2{puff} Inhale 2 [facility] formoteroL 3-19 Puffs 2 ity of 160-4.5 00:00: (two) [place] mcg/actuati 00 times Medical on inhaler daily. [facility] budesonide- Yes [id number] 2{puff} Inhale 2 [facility] formoteroL 3-19 Puffs 2 ity of 160-4.5 00:00: (two) [place] mcg/actuati 00 times Medical on inhaler daily. [facility] budesonide- Yes [id number] 2{puff} Inhale 2 [facility] formoteroL 3-19 Puffs 2 ity of 160-4.5 00:00: (two) [place] mcg/actuati 00 times Medical on inhaler daily. [facility] budesonide- Yes [id number] 2{puff} Inhale 2 [facility] formoteroL 3-19 Puffs 2 ity of 160-4.5 00:00: (two) [place] mcg/actuati 00 times Medical on inhaler daily. [facility] budesonide- 2020- Yes [id number] 2{puff} Inhale 2 [facility] formoteroL 3-19 Puffs 2 ity of 160-4.5 00:00: (two) [place] mcg/actuati 00 times Medical on inhaler daily. Branch vitamin C Yes [id number] 1000mg Take 1 [facility] with lizz 3-04 tablet by ity o f hips 1,000 00:00: mouth [place] mg tablet 00 daily. [facility] vitamin C Yes [id number] 1000mg Take 1 [facility] with lizz 3-04 tablet by ity o f hips 1,000 00:00: mouth [place] mg tablet 00 daily. [facility] vitamin C Yes [id number] 1000mg Take 1 [facility] with lizz 3-04 tablet by ity o f hips 1,000 00:00: mouth [place] mg tablet 00 daily. [facility] vitamin C Yes [id number] 1000mg Take 1 [facility] with lizz 3-04 tablet by ity o f hips 1,000 00:00: mouth [place] mg tablet 00 daily. [facility] vitamin C Yes [id number] 1000mg Take 1 [facility] with lizz 3-04 tablet by ity o f hips 1,000 00:00: mouth [place] mg tablet 00 daily. [facility] Branch vitamin C Yes [id number] 1000mg Take 1 [facility] with lizz 3-04 tablet by ity o f hips 1,000 00:00: mouth [place] mg tablet 00 daily. [facility] vitamin C Yes [id number] 1000mg Take 1 [facility] with lizz 3-04 tablet by ity o f hips 1,000 00:00: mouth [place] mg tablet 00 daily. [facility] vitamin C Yes [id number] 1000mg Take 1 [facility] with lizz 3-04 tablet by ity o f hips 1,000 00:00: mouth [place] mg tablet 00 daily. [facility] vitamin C Yes [id number] 1000mg Take 1 [facility] with lizz 3-04 tablet by ity o f hips 1,000 00:00: mouth [place] mg tablet 00 daily. [facility] vitamin C Yes [id number] 1000mg Take 1 [facility] with lizz 3-04 tablet by ity o f hips 1,000 00:00: mouth [place] mg tablet 00 daily. [facility] vitamin C Yes [id number] 1000mg Take 1 [facility] with lziz 3-04 tablet by ity o f hips 1,000 00:00: mouth [place] mg tablet 00 daily. [facility] vitamin C Yes [id number] 1000mg Take 1 [facility] with lizz 3-04 tablet by ity o f hips 1,000 00:00: mouth [place] mg tablet 00 daily. [facility] vitamin C Yes [id number] 1000mg Take 1 [facility] with lizz 3-04 tablet by ity o f hips 1,000 00:00: mouth [place] mg tablet 00 daily. [facility] vitamin C Yes [id number] 1000mg Take 1 [facility] with lizz 3-04 tablet by ity o f hips 1,000 00:00: mouth [place] mg tablet 00 daily. [facility] vitamin C Yes [id number] 1000mg Take 1 [facility] with lizz 3-04 tablet by ity o f hips 1,000 00:00: mouth [place] mg tablet 00 daily. [facility] vitamin C Yes [id number] 1000mg Take 1 [facility] with lizz 3-04 tablet by ity o f hips 1,000 00:00: mouth [place] mg tablet 00 daily. [facility] vitamin C Yes [id number] 1000mg Take 1 [facility] with lizz 3-04 tablet by ity o f hips 1,000 00:00: mouth [place] mg tablet 00 daily. [facility] vitamin C Yes [id number] 1000mg Take 1 [facility] with lizz 3-04 tablet by ity o f hips 1,000 00:00: mouth [place] mg tablet 00 daily. [facility] vitamin C Yes [id number] 1000mg Take 1 [facility] with lizz 3-04 tablet by ity o f hips 1,000 00:00: mouth [place] mg tablet 00 daily. [facility] vitamin C Yes [id number] 1000mg Take 1 [facility] with lizz 3-04 tablet by ity o f hips 1,000 00:00: mouth [place] mg tablet 00 daily. [facility] vitamin C Yes [id number] 1000mg Take 1 [facility] with lizz 3-04 tablet by ity o f hips 1,000 00:00: mouth [place] mg tablet 00 daily. [facility] vitamin C Yes [id number] 1000mg Take 1 [facility] with lizz 3-04 tablet by ity o f hips 1,000 00:00: mouth [place] mg tablet 00 daily. [facility] vitamin C Yes [id number] 1000mg Take 1 [facility] with lizz 3-04 tablet by ity o f hips 1,000 00:00: mouth [place] mg tablet 00 daily. [facility] vitamin C Yes [id number] 1000mg Take 1 [facility] with lizz 3-04 tablet by ity o f hips 1,000 00:00: mouth [place] mg tablet 00 daily. [facility] vitamin C Yes [id number] 1000mg Take 1 [facility] with lizz 3-04 tablet by ity o f hips 1,000 00:00: mouth [place] mg tablet 00 daily. [facility] vitamin C Yes [id number] 1000mg Take 1 [facility] with lizz 3-04 tablet by ity o f hips 1,000 00:00: mouth [place] mg tablet 00 daily. [facility] vitamin C Yes [id number] 1000mg Take 1 [facility] with lizz 3-04 tablet by ity o f hips 1,000 00:00: mouth [place] mg tablet 00 daily. [facility] vitamin C Yes [id number] 1000mg Take 1 [facility] with lizz 3-04 tablet by ity o f hips 1,000 00:00: mouth [place] mg tablet 00 daily. [facility] vitamin C Yes [id number] 1000mg Take 1 [facility] with lizz 3-04 tablet by ity o f hips 1,000 00:00: mouth [place] mg tablet 00 daily. [facility] vitamin C Yes [id number] 1000mg Take 1 [facility] with lizz 3-04 tablet by ity o f hips 1,000 00:00: mouth [place] mg tablet 00 daily. [facility] vitamin C Yes [id number] 1000mg Take 1 [facility] with lizz 3-04 tablet by ity o f hips 1,000 00:00: mouth [place] mg tablet 00 daily. [facility] vitamin C Yes [id number] 1000mg Take 1 [facility] with lizz 3-04 tablet by ity o f hips 1,000 00:00: mouth [place] mg tablet 00 daily. [facility] vitamin C Yes [id number] 1000mg Take 1 [facility] with lizz 3-04 tablet by ity o f hips 1,000 00:00: mouth [place] mg tablet 00 daily. [facility] Branch vitamin C Yes [id number] 1000mg Take 1 [facility] with lizz 3-04 tablet by ity o f hips 1,000 00:00: mouth [place] mg tablet 00 daily. [facility] vitamin C Yes [id number] 1000mg Take 1 [facility] with lizz 3-04 tablet by ity o f hips 1,000 00:00: mouth [place] mg tablet 00 daily. [facility] Branch vitamin C Yes [id number] 1000mg Take 1 [facility] with lizz 3-04 tablet by ity o f hips 1,000 00:00: mouth [place] mg tablet 00 daily. [facility] Branch vitamin C Yes [id number] 1000mg Take 1 [facility] with lizz 3-04 tablet by ity o f hips 1,000 00:00: mouth [place] mg tablet 00 daily. [facility] Branch vitamin C Yes [id number] 1000mg Take 1 [facility] with lizz 3-04 tablet by ity o f hips 1,000 00:00: mouth [place] mg tablet 00 daily. [facility] vitamin C Yes [id number] 1000mg Take 1 [facility] with lizz 3-04 tablet by ity o f hips 1,000 00:00: mouth [place] mg tablet 00 daily. [facility] Branch vitamin C Yes [id number] 1000mg Take 1 [facility] with lizz 3-04 tablet by ity o f hips 1,000 00:00: mouth [place] mg tablet 00 daily. [facility] Branch vitamin C Yes [id number] 1000mg Take 1 [facility] with lizz 3-04 tablet by ity o f hips 1,000 00:00: mouth [place] mg tablet 00 daily. [facility] Branch vitamin C Yes [id number] 1000mg Take 1 [facility] with lizz 3-04 tablet by ity o f hips 1,000 00:00: mouth [place] mg tablet 00 daily. [facility] Branch vitamin C Yes [id number] 1000mg Take 1 [facility] with lizz 3-04 tablet by ity o f hips 1,000 00:00: mouth [place] mg tablet 00 daily. [facility] vitamin C Yes [id number] 1000mg Take 1 [facility] with ilzz 3-04 tablet by ity o f hips 1,000 00:00: mouth [place] mg tablet 00 daily. [facility] vitamin C Yes [id number] 1000mg Take 1 [facility] with lizz 3-04 tablet by ity o f hips 1,000 00:00: mouth [place] mg tablet 00 daily. [facility] vitamin C Yes [id number] 1000mg Take 1 [facility] with lizz 3-04 tablet by ity o f hips 1,000 00:00: mouth [place] mg tablet 00 daily. [facility] vitamin C Yes [id number] 1000mg Take 1 [facility] with lizz 3-04 tablet by ity o f hips 1,000 00:00: mouth [place] mg tablet 00 daily. [facility] vitamin C Yes [id number] 1000mg Take 1 [facility] with lizz 3-04 tablet by ity o f hips 1,000 00:00: mouth [place] mg tablet 00 daily. [facility] vitamin C Yes [id number] 1000mg Take 1 [facility] with lizz 3-04 tablet by ity o f hips 1,000 00:00: mouth [place] mg tablet 00 daily. [facility] vitamin C Yes [id number] 1000mg Take 1 [facility] with lizz 3-04 tablet by ity o f hips 1,000 00:00: mouth [place] mg tablet 00 daily. [facility] vitamin C Yes [id number] 1000mg Take 1 [facility] with lizz 3-04 tablet by ity o f hips 1,000 00:00: mouth [place] mg tablet 00 daily. [facility] vitamin C Yes [id number] 1000mg Take 1 [facility] with lizz 3-04 tablet by ity o f hips 1,000 00:00: mouth [place] mg tablet 00 daily. [facility] vitamin C Yes [id number] 1000mg Take 1 [facility] with lizz 3-04 tablet by ity o f hips 1,000 00:00: mouth [place] mg tablet 00 daily. [facility] vitamin C Yes [id number] 1000mg Take 1 [facility] with lizz 3-04 tablet by ity o f hips 1,000 00:00: mouth [place] mg tablet 00 daily. [facility] vitamin C Yes [id number] 1000mg Take 1 [facility] with lizz 3-04 tablet by ity o f hips 1,000 00:00: mouth [place] mg tablet 00 daily. [facility] vitamin C Yes [id number] 1000mg Take 1 [facility] with lizz 3-04 tablet by ity o f hips 1,000 00:00: mouth [place] mg tablet 00 daily. [facility] vitamin C Yes [id number] 1000mg Take 1 [facility] with lizz 3-04 tablet by ity o f hips 1,000 00:00: mouth [place] mg tablet 00 daily. [facility] vitamin C Yes [id number] 1000mg Take 1 [facility] with lizz 3-04 tablet by ity o f hips 1,000 00:00: mouth [place] mg tablet 00 daily. [facility] Branch vitamin C Yes [id number] 1000mg Take 1 [facility] with lizz 3-04 tablet by ity o f hips 1,000 00:00: mouth [place] mg tablet 00 daily. [facility] vitamin C Yes [id number] 1000mg Take 1 [facility] with lizz 3-04 tablet by ity o f hips 1,000 00:00: mouth [place] mg tablet 00 daily. [facility] Branch vitamin C Yes [id number] 1000mg Take 1 [facility] with lizz 3-04 tablet by ity o f hips 1,000 00:00: mouth [place] mg tablet 00 daily. [facility] vitamin C Yes [id number] 1000mg Take 1 [facility] with lizz 3-04 tablet by ity o f hips 1,000 00:00: mouth [place] mg tablet 00 daily. [facility] vitamin C Yes [id number] 1000mg Take 1 [facility] with lizz 3-04 tablet by ity o f hips 1,000 00:00: mouth [place] mg tablet 00 daily. [facility] vitamin C Yes [id number] 1000mg Take 1 [facility] with lizz 3-04 tablet by ity o f hips 1,000 00:00: mouth [place] mg tablet 00 daily. [facility] vitamin C Yes [id number] 1000mg Take 1 [facility] with lizz 3-04 tablet by ity o f hips 1,000 00:00: mouth [place] mg tablet 00 daily. [facility] vitamin C Yes [id number] 1000mg Take 1 [facility] with lizz 3-04 tablet by ity o f hips 1,000 00:00: mouth [place] mg tablet 00 daily. [facility] vitamin C Yes [id number] 1000mg Take 1 [facility] with lizz 3-04 tablet by ity o f hips 1,000 00:00: mouth [place] mg tablet 00 daily. [facility] vitamin C Yes [id number] 1000mg Take 1 [facility] with lizz 3-04 tablet by ity o f hips 1,000 00:00: mouth [place] mg tablet 00 daily. [facility] vitamin C Yes [id number] 1000mg Take 1 [facility] with lizz 3-04 tablet by ity o f hips 1,000 00:00: mouth [place] mg tablet 00 daily. [facility] vitamin C Yes [id number] 1000mg Take 1 [facility] with lizz 3-04 tablet by ity o f hips 1,000 00:00: mouth [place] mg tablet 00 daily. [facility] vitamin C Yes [id number] 1000mg Take 1 [facility] with lizz 3-04 tablet by ity o f hips 1,000 00:00: mouth [place] mg tablet 00 daily. [facility] vitamin C Yes [id number] 1000mg Take 1 [facility] with lizz 3-04 tablet by ity o f hips 1,000 00:00: mouth [place] mg tablet 00 daily. [facility] vitamin C Yes [id number] 1000mg Take 1 [facility] with lizz 3-04 tablet by ity o f hips 1,000 00:00: mouth [place] mg tablet 00 daily. [facility] vitamin C Yes [id number] 1000mg Take 1 [facility] with lizz 3-04 tablet by ity o f hips 1,000 00:00: mouth [place] mg tablet 00 daily. [facility] vitamin C Yes [id number] 1000mg Take 1 [facility] with lizz 3-04 tablet by ity o f hips 1,000 00:00: mouth [place] mg tablet 00 daily. [facility] vitamin C Yes [id number] 1000mg Take 1 [facility] with lizz 3-04 tablet by ity o f hips 1,000 00:00: mouth [place] mg tablet 00 daily. [facility] vitamin C Yes [id number] 1000mg Take 1 [facility] with lizz 3-04 tablet by ity o f hips 1,000 00:00: mouth [place] mg tablet 00 daily. [facility] vitamin C Yes [id number] 1000mg Take 1 [facility] with lizz 3-04 tablet by ity o f hips 1,000 00:00: mouth [place] mg tablet 00 daily. [facility] vitamin C Yes [id number] 1000mg Take 1 [facility] with lizz 3-04 tablet by ity o f hips 1,000 00:00: mouth [place] mg tablet 00 daily. [facility] vitamin C Yes [id number] 1000mg Take 1 [facility] with lizz 3-04 tablet by ity o f hips 1,000 00:00: mouth [place] mg tablet 00 daily. [facility] vitamin C Yes [id number] 1000mg Take 1 [facility] with lizz 3-04 tablet by ity o f hips 1,000 00:00: mouth [place] mg tablet 00 daily. [facility] vitamin C Yes [id number] 1000mg Take 1 [facility] with lizz 3-04 tablet by ity o f hips 1,000 00:00: mouth [place] mg tablet 00 daily. [facility] vitamin C Yes [id number] 1000mg Take 1 [facility] 3-04 tablet by [facility] f hips 1,000 00:00: mouth [place] mg tablet 00 daily. [facility] vitamin C Yes [id number] 1000mg Take 1 [facility] with lizz 3-04 tablet by [facility] f hips 1,000 00:00: mouth [place] mg tablet 00 daily. [facility] vitamin C Yes [id number] 1000mg Take 1 [facility] with lizz 3-04 tablet by ity [facility] f hips 1,000 00:00: mouth [place] mg tablet 00 daily. [facility] vitamin C Yes [id number] 1000mg Take 1 [facility] with lizz 3-04 tablet by [facility] hips 1,000 00:00: mouth [place] mg tablet 00 daily. [facility] vitamin C Yes [id number] 1000mg Take 1 [facility] with lizz 3-04 tablet by [facility] hips 1,000 00:00: mouth [place] mg tablet 00 daily. [facility] vitamin C Yes [id number] 1000mg Take 1 [facility] with lizz 3-04 tablet by ity [facility] f hips 1,000 00:00: mouth [place] mg tablet 00 daily. [facility] Branch vitamin C Yes [id number] 1000mg Take 1 [facility] with lizz 3-04 tablet by ity o f hips 1,000 00:00: mouth [place] mg tablet 00 daily. [facility] vitamin C Yes [id number] 1000mg Take 1 [facility] with lizz 3-04 tablet by ity o f hips 1,000 00:00: mouth [place] mg tablet 00 daily. [facility] vitamin C Yes [id number] 1000mg Take 1 [facility] with lizz 3-04 tablet by ity o f hips 1,000 00:00: mouth [place] mg tablet 00 daily. [facility] vitamin C Yes [id number] 1000mg Take 1 [facility] with lizz 3-04 tablet by ity [facility] f hips 1,000 00:00: mouth [place] mg tablet 00 daily. [facility] vitamin C Yes [id number] 1000mg Take 1 [facility] with lizz 3-04 tablet by ity o f hips 1,000 00:00: mouth [place] mg tablet 00 daily. [facility] vitamin C Yes [id number] 1000mg Take 1 [facility] with lizz 3-04 tablet by ity [facility] f hips 1,000 00:00: mouth [place] mg tablet 00 daily. [facility] vitamin C Yes [id number] 1000mg Take 1 [facility] with lizz 3-04 tablet by ity [facility] f hips 1,000 00:00: mouth [place] mg tablet 00 daily. [facility] vitamin C Yes [id number] 1000mg Take 1 [facility] with lizz 3-04 tablet by ity o f hips 1,000 00:00: mouth [place] mg tablet 00 daily. [facility] vitamin C Yes [id number] 1000mg Take 1 [facility] with lizz 3-04 tablet by ity [facility] f hips 1,000 00:00: mouth [place] mg tablet 00 daily. [facility] vitamin C Yes [id number] 1000mg Take 1 [facility] with lizz 3-04 tablet by ity o f hips 1,000 00:00: mouth [place] mg tablet 00 daily. [facility] vitamin C Yes [id number] 1000mg Take 1 [facility] with lizz 3-04 tablet by ity o f hips 1,000 00:00: mouth [place] mg tablet 00 daily. [facility] vitamin C Yes [id number] 1000mg Take 1 [facility] with lizz 3-04 [...] 15:24: Narcan Flumazenil No Notes: Memor ia 4-17 (Same as: l 15:24: Romazicon) albuterol Yes [...] n [Topamax] 00 tab, 0 Refill(s) Amlodipine 2019-0 Yes PO, PRN, 0 M emoria 4-03 Refill(s) l 18:13: [place] Vitamin D3 2018- Yes = 1 cap, Mem oria 4-03 PO, Every l 18:11: Other Day, [place] 00 0 Refill(s) pantoprazol Yes 50 mg, PO, Memoria e 20 MG 4-03 BID, 0 l Enteric 18:10: Refill(s) Aure nn Coated 00 Tablet [Protonix] lisinopril Yes 10 mg = 1 Me moria 10 mg oral 4-03 tab, PO, l tablet 18:09: Daily, 0 [place] 00 Refill(s) Vitamin D Vitamin D Yes PHILL Take 1 [place] (Ergocalcif (Ergocalcif 1-04 MOR[facility] N[facility]P. capsule Physici katrin) 42132 katrin) 56270 00:00: two times ans UNIT Oral UNIT Oral 00 per week Capsule Capsule atorvastati No 40 mg = 1 M emoria n 40 mg 1-03 tab, PO, l oral tablet 18:37: Bedtime, # [place] 00 30 tab, 0 Refill(s), Pharmacy: [id number] Aspirin 81 Yes 81 mg = 1 Me moria MG Chewable 1-03 tab, PO, l Tablet 18:37: Daily, # [place] 00 30 tab, 0 Refill(s), Pharmacy: [id number] Metformin Yes 500 mg, Memor ia hydrochlori 1-03 PO, BID, # l de 500 MG 18:37: 60 tab, 0 Her espino Oral Tablet 00 Refill(s), [Glucophage Pharmacy: ] [id number] clopidogrel No 75 mg = 1 M emoria 75 mg oral 1-03 tab, PO, l tablet 18:37: Daily, # Lynne 00 30 tab, 0 Refill(s), Pharmacy: [id number] Sodium No 25 mL, Memoria Chloride 06-15 Route: IV, l 0.9% IV 13:56: Start date: 06/15/18 7:56:00 BULK DRIVER, Duration: 30 day, Stop date: 07/15/18 7:55:00 BULK DRIVER, PRN Line Flush BD Normal No Notes: Memori a Saline 06-15 (Same as: l Flush 13:56: BD Posiflush) Lovenox No Notes: Memoria 06-14 (Same as: l 21:00: Lovenox) venlafaxine No Notes: Jose G rene 06-14 (Same As: l 15:42: Effexor) Plavix No Notes: Memoria - (Same As: l 15:41: Plavix) Aspirin No 81 mg, Memoria 06-14 Route: PO, l 15:36: Drug form: [place] 00 ECTAB, Daily, Dosing Weight 165.3, kg, Priority: NOW, Start date: 06/14/18 9:36:00 BULK DRIVER, Duration: 30 day, Stop date: 07/14/18 9:00:00 BULK DRIVER pantoprazol No Notes: For Memoria e 06-13 IV push l 22:30: reconstitu te with 10 ml 0.9% sodium chloride and push over 2 minutes. (Same as: Protonix) Fentanyl No Notes: Memoria 06-13 (Same as: l 18:00: Sublimaze) Preservati ve [...] 0.9% 06-13 (Same as: l 15:00: BD [place] 00 Posiflush) Aspirin 81 No 81 mg = 1 Me moria MG Chewable 06-13 tab, PO, l Tablet 12:28: Daily, tab, 0 Refill(s) Zofran No Notes: Memoria 06-13 (Same as: l 12:17: Zofran) MEDICATION WASTE Product Size: 4 mg Product Wasted: ___ mg Promethazin No 12.5 mg, Me moria e 06-13 50 mL, l 12:17: Route: [place] 00 IVPB, Drug form: SOLN, Q6H, Dosing Weight 165.3, kg, PRN Nausea & Vomiting, Start date: 06/13/18 6:17:00 BULK DRIVER, Duration: 30 day, Stop date: 07/13/18 6:16:00 BULK DRIVER ocular 2018-0 No Notes: Memoria lubricant 06-13 (Same as: l 12:00: Refresh Plus) Enoxaparin No 40 mg, Memor ia 06-13 Route: l 11:00: SUB-Q, Drug form: INJ, [id number], Dosing Weight 150.091, kg, Start date: 06/13/18 5:00:00 BULK DRIVER, Duration: 30 day, Stop date: 07/12/18 5:00:00 BULK DRIVER chlorhexidi 0 No Notes: Jose G rene ne 06-13 (Same As: l gluconate 10:34: Peridex) Herm mio 1.2 MG/ML 00 Mouthwash Insulin No 60 units) Jose G rene regular 06-13 WASTE: F/P l 10:30: - Black; E - [facility] Trash Bin Stable for 28 days at room temperatur e Expires in days from ____Date Dextrose No 12.5 gm, Memor ia 50% Syringe 06-13 25 mL, l 10:30: Route: IVP, Drug Form: INJ, Dosing Weight 150.091, kg, PRN, PRN Blood Glucose Results, Start date: 06/13/18 4:30:00 BULK DRIVER, Duration: 30 day, Stop date: 07/13/18 4:29:00 BULK DRIVER Glucagon No 1 mg, Memoria 06-13 Route: IM, l 10:30: Drug form: PDR/INJ, PRN, Dosing Weight 150.091, kg, PRN Blood Glucose Results, Start date: 06/13/18 4:30:00 BULK DRIVER, Duration: 30 day, Stop date: 07/13/18 4:29:00 BULK DRIVER Lactated 2018-0 No 1,000 mL, Jose G rene Ringers IV 06-13 Rate: 125 l 1,000 mL 10:29: ml/hr, Infuse over: 8 hr, Route: IV, Dosing Weight 150.091 kg, Total Volume: 1,000, Start date: 06/13/18 4:29:00 BULK DRIVER, Duration: 30 day, Stop date: 07/13/18 4:28:00 BULK DRIVER, 2.63, m2 Saline No Notes: Memoria Flush 0.9% 06-13 (Same as: l 10:29: BD [place] 00 Posiflush) Vitamin D Vitamin D 2017-0 Yes PHILL Take 1 [place] (Ergocalcif (Ergocalcif 9-11 M[facility]AES N[facility]P. capsule Physici katrin) 93474 katrin) [id number] 00:00: two times ans UNIT Oral UNIT Oral 00 per week Capsule Capsule bifidobacte 2018-0 Yes QD Take by [facility] [...] Immunizations Ordered Filled Immunization Date Status Comments [facility] e Immunization Name Name Influenza Virus 2022-03-12 Completed [facility]ine [facility], 00:00:00 [place] [facility] Preserv and ABX Branch Free 6 MO-64 YRS Influenza Virus 2022-03-12 Completed [facility] y [facility] Vaccine [facility] IM, 00:00:00 [place] [facility] Preserv and ABX Branch Free 6 MO-64 YRS Influenza Virus 2022-03-12 Completed [facility] y [facility] Vaccine [facility] IM, 00:00:00 [place] [facility] Preserv and ABX Branch Free 6 MO-64 YRS Influenza Virus 2022-03-12 Completed [facility]it y of Vaccine [facility] IM, 00:00:00 [place] [facility] Preserv and ABX Branch Free 6 MO-64 YRS Influenza Virus 2022-03-12 Completed [facility]it y [facility] Vaccine [facility] IM, 00:00:00 [place] [facility] Preserv and ABX Branch Free 6 MO-64 YRS Influenza Virus 2022-03-12 Completed [facility]it y of Vaccine [facility] IM, 00:00:00 [place] [facility] Preserv and ABX Branch Free 6 MO-64 YRS Influenza Virus 2022-03-12 Completed [facility]it y [facility] Vaccine [facility] IM, 00:00:00 [place] [facility] Preserv and ABX Branch Free 6 MO-64 YRS Influenza Virus 2022-03-12 Completed [facility]it y of Vaccine [facility] IM, 00:00:00 [place] [facility] Preserv and ABX Branch Free 6 MO-64 YRS Influenza Virus 2022-03-12 Completed [facility]it y of Vaccine [facility] IM, 00:00:00 [place] [facility] Preserv and ABX Branch Free 6 MO-64 YRS Influenza Virus 2022-03-12 Completed [facility]it y of Vaccine [facility] IM, 00:00:00 [place] [facility] Preserv and ABX Branch Free [...] YRS TDAP 2021-08-31 Completed University of 00:00:00 [facility] TDAP 2021-08-31 Completed University of 00:00:00 [facility] TDAP 2021-08-31 Completed University of 00:00:00 [facility] TDAP 2021-08-31 Completed University of 00:00:00 [facility] TDAP 2021-08-31 Completed University of 00:00:00 [facility] TDAP 2021-08-31 Completed University of 00:00:00 [facility] TDAP 2021-08-31 Completed University of 00:00:00 [facility] TDAP 2021-08-31 Completed University of 00:00:00 [facility] TDAP 2021-08-31 Completed University of 00:00:00 [facility] TDAP 2021-08-31 Completed University of 00:00:00 [facility] TDAP 2021-08-31 Completed University of 00:00:00 [facility] TDAP 2021-08-31 Completed University of 00:00:00 [facility] TDAP 2021-08-31 Completed University of 00:00:00 [facility] TDAP 2021-08-31 Completed University of 00:00:00 [facility] TDAP 2021-08-31 Completed University of 00:00:00 [facility] TDAP 2021-08-31 Completed University of 00:00:00 [facility] TDAP 2021-08-31 Completed University of 00:00:00 [facility] TDAP 2021-08-31 Completed University of 00:00:00 [facility] TDAP 2021-08-31 Completed University of 00:00:00 [facility] TDAP 2021-08-31 Completed University of 00:00:00 [facility] TDAP 2021-08-31 Completed University of 00:00:00 [facility] TDAP 2021-08-31 Completed University of 00:00:00 [facility] TDAP 2021-08-31 Completed University of 00:00:00 [facility] TDAP 2021-08-31 Completed University of 00:00:00 [facility] TDAP 2021-08-31 Completed University of 00:00:00 [facility] TDAP 2021-08-31 Completed University of 00:00:00 [facility] TDAP 2021-08-31 Completed University of 00:00:00 [place] [facility] TDAP 2021-08-31 Completed University of 00:00:00 [place] [facility] TDAP 2021-08-31 Completed University of 00:00:00 [place] [facility] TDAP 2021-08-31 Completed University of 00:00:00 [place] [facility] TDAP 2021-08-31 Completed University of 00:00:00 [place] [facility] TDAP 2021-08-31 Completed University of 00:00:00 [place] [facility] TDAP 2021-08-31 Completed University of 00:00:00 [place] [facility] TDAP 2021-08-31 Completed University of 00:00:00 [place] [facility] TDAP 2021-08-31 Completed University of 00:00:00 [place] [facility] TDAP 2021-08-31 Completed University of 00:00:00 [place] [facility] TDAP 2021-08-31 Completed University of 00:00:00 [place] [facility] TDAP 2021-08-31 Completed University of 00:00:00 [place] [facility] TDAP 2021-08-31 Completed University of 00:00:00 [place] [facility] TDAP 2021-08-31 Completed University of 00:00:00 [place] [facility] TDAP 2021-08-31 Completed University of 00:00:00 [place] [facility] TDAP 2021-08-31 Completed University of 00:00:00 [place] [facility] TDAP 2021-08-31 Completed University of 00:00:00 [place] [facility] TDAP 2021-08-31 Completed University of 00:00:00 [place] [facility] TDAP 2021-08-31 Completed University of 00:00:00 [place] [facility] TDAP 2021-08-31 Completed [facility] of 00:00:00 [place] [facility] TDAP 2021-08-31 Completed [facility] of 00:00:00 [place] [facility] TDAP 2021-08-31 Completed University of 00:00:00 [place] [facility] TDAP 2021-08-31 Completed [facility] of 00:00:00 [place] [facility] TDAP 2021-08-31 Completed [facility] of 00:00:00 [place] [facility] TDAP 2021-08-31 Completed [facility] of 00:00:00 [place] [facility] TDAP 2021-08-31 Completed University of 00:00:00 [facility] Branch TDAP 2021-08-31 Completed University of 00:00:00 [place] [facility] TDAP 2021-08-31 Completed University of 00:00:00 [place] [facility] TDAP 2021-08-31 Completed [facility] of 00:00:00 [place] [facility] TDAP 2021-08-31 Completed [facility] of 00:00:00 [place] [facility] TDAP 2021-08-31 Completed [facility] of 00:00:00 [place] [facility] TDAP 2021-08-31 Completed [facility] of 00:00:00 [place] [facility] TDAP 2021-08-31 Completed [facility] of 00:00:00 [place] [facility] TDAP 2021-08-31 Completed [facility] of 00:00:00 [place] [facility] TDAP 2021-08-31 Completed [facility] of 00:00:00 [place] [facility] TDAP 2021-08-31 Completed [facility] of 00:00:00 [place] [facility] TDAP 2021-08-31 Completed University of 00:00:00 [facility] Branch TDAP 2021-08-31 Completed University of 00:00:00 [place] [facility] TDAP 2021-08-31 Completed [facility] of 00:00:00 [place] [facility] TDAP 2021-08-31 Completed University of 00:00:00 [facility] Branch TDAP 2021-08-31 Completed University of 00:00:00 [place] [facility] TDAP 2021-08-31 Completed University of 00:00:00 [place] [facility] TDAP 2021-08-31 Completed University of 00:00:00 [facility] Branch TDAP 2021-08-31 Completed University of 00:00:00 [facility] Branch TDAP 2021-08-31 Completed University of 00:00:00 [place] [facility] TDAP 2021-08-31 Completed University of 00:00:00 [place] [facility] TDAP 2021-08-31 Completed [facility] of 00:00:00 [place] [facility] TDAP 2021-08-31 Completed [facility] of 00:00:00 [place] [facility] TDAP 2021-08-31 Completed [facility] of 00:00:00 [place] [facility] TDAP 2021-08-31 Completed [facility] of 00:00:00 [place] [facility] TDAP 2021-08-31 Completed University of 00:00:00 [facility] Branch TDAP 2021-08-31 Completed University of 00:00:00 [place] [facility] TDAP 2021-08-31 Completed [facility] of 00:00:00 [place] [facility] TDAP 2021-08-31 Completed [facility] of 00:00:00 [place] [facility] TDAP 2021-08-31 Completed University of 00:00:00 [place] [facility] TDAP 2021-08-31 Completed [facility] of 00:00:00 [place] [facility] TDAP 2021-08-31 Completed [facility] of 00:00:00 [place] [facility] TDAP 2021-08-31 Completed [facility] of 00:00:00 [place] [facility] TDAP 2021-08-31 Completed [facility] of 00:00:00 [place] [facility] TDAP 2021-08-31 Completed [facility] of 00:00:00 [place] [facility] TDAP 2021-08-31 Completed [facility] of 00:00:00 [place] [facility] TDAP 2021-08-31 Completed [facility] of 00:00:00 [place] [facility] TDAP 2021-08-31 Completed [facility] of 00:00:00 [place] [facility] TDAP 2021-08-31 Completed [facility] of 00:00:00 [place] [facility] TDAP 2021-08-31 Completed University of 00:00:00 [place] [facility] TDAP 2021-08-31 Completed [facility] of 00:00:00 [place] [facility] TDAP 2021-08-31 Completed [facility] 00:00:00 [place] [facility] TDAP 2021-08-31 Completed [facility] 00:00:00 [place] [facility] [place] TDAP 2021-08-31 Completed [facility] 00:00:00 [facility] TDAP 2021-08-31 Completed [facility] of 00:00:00 [place] [facility] [place] TDAP 2021-08-31 Completed [facility] 00:00:00 [place] [facility] TDAP 2021-08-31 Completed [facility] 00:00:00 [place] [facility] [place] TDAP 2021-08-31 Completed [facility] of 00:00:00 [facility] TDAP 2021-08-31 Completed University of 00:00:00 [facility] Influenza Virus 2021-04-14 Completed Universit y of Vaccine Quad .5 mL 00:00:00 [facility] IM 6+ MO Branch Influenza Virus 2021-04-14 Completed [facility] y [facility] Vaccine [facility] .5 mL 00:00:00 [place] [facility] 6+ MO Branch Influenza Virus 2021-04-14 Completed [facility] y of Vaccine Quad .5 mL 00:00:00 [facility] IM 6+ MO Branch Influenza Virus 2021-04-14 [...] y of Vaccine Quad .5 mL 00:00:00 [place] [facility] 6+ MO Branch Influenza Virus 2021-04-14 Completed [facility]it y of Vaccine [facility] .5 mL 00:00:00 [place] [facility] IM 6+ MO Branch Influenza Virus 2021-04-14 Completed [facility]it y of Vaccine Quad .5 mL 00:00:00 [place] [facility] 6+ MO Branch Influenza Virus 2021-04-14 Completed [facility] y of Vaccine [facility] .5 mL 00:00:00 [place] [facility] 6+ MO Branch Influenza Virus 2021-04-14 Completed [facility] y of Vaccine [facility] .5 mL 00:00:00 [place] [facility] 6+ MO Branch Influenza Virus 2021-04-14 Completed [facility] y of Vaccine [facility] .5 mL 00:00:00 [place] [facility] 6+ MO Branch Influenza Virus 2021-04-14 Completed [facility] y of Vaccine Quad .5 mL 00:00:00 [facility] 6+ MO Branch Influenza Virus 2021-04-14 Completed Universit y of Vaccine Quad .5 mL 00:00:00 [facility] 6+ MO Branch SARS-COV-2 COVID-19 2020-12-10 Completed Unive rsity of PFIZER VACCINE 00:00:00 [facility] SARS-COV-2 COVID-19 2020-12-10 Completed Unive rsity of PFIZER VACCINE 00:00:00 [facility] SARS-COV-2 COVID-19 2020-12-10 Completed Unive rsity of PFIZER VACCINE 00:00:00 [place] [facility] SARS-COV-2 COVID-19 2020-12-10 Completed Unive rsity of PFIZER VACCINE 00:00:00 [facility] [place] Branch SARS-COV-2 COVID-19 2020-12-10 Completed Unive rsity of PFIZER VACCINE 00:00:00 [facility] [place] Branch SARS-COV-2 COVID-19 2020-12-10 Completed Unive rsity of PFIZER VACCINE 00:00:00 [facility] [place] Branch SARS-COV-2 COVID-19 2020-12-10 Completed Unive rsity of PFIZER VACCINE 00:00:00 [facility] [place] Branch SARS-COV-2 COVID-19 2020-12-10 Completed Unive rsity of PFIZER VACCINE 00:00:00 [facility] [place] Branch SARS-COV-2 COVID-19 2020-12-10 Completed Unive rsity of PFIZER VACCINE 00:00:00 [facility] [place] [facility] SARS-COV-2 COVID-19 2020-12-10 Completed Unive rsity of PFIZER VACCINE 00:00:00 [facility] [place] Branch SARS-COV-2 COVID-19 2020-12-10 Completed Unive rsity of PFIZER VACCINE 00:00:00 [facility] [place] Branch SARS-COV-2 COVID-19 2020-12-10 Completed Unive rsity of PFIZER VACCINE 00:00:00 [facility] [place] Branch SARS-COV-2 COVID-19 2020-12-10 Completed Unive rsity of PFIZER VACCINE 00:00:00 [facility] [place] Branch SARS-COV-2 COVID-19 2020-12-10 Completed Unive rsity of PFIZER VACCINE 00:00:00 [facility] [place] Branch SARS-COV-2 COVID-19 2020-12-10 Completed Unive rsity of PFIZER VACCINE 00:00:00 [facility] [place] [facility] SARS-COV-2 COVID-19 2020-12-10 Completed Unive rsity of PFIZER VACCINE 00:00:00 [facility] [place] [facility] SARS-COV-2 COVID-19 2020-12-10 Completed Unive rsity of PFIZER VACCINE 00:00:00 [facility] SARS-COV-2 COVID-19 2020-12-10 Completed Unive rsity of PFIZER VACCINE 00:00:00 [facility] [place] [facility] SARS-COV-2 COVID-19 2020-12-10 Completed Unive rsity of PFIZER VACCINE 00:00:00 [facility] [place] [facility] SARS-COV-2 COVID-19 2020-12-10 Completed Unive rsity of PFIZER VACCINE 00:00:00 [facility] [place] [facility] SARS-COV-2 COVID-19 2020-12-10 Completed Unive rsity of PFIZER VACCINE 00:00:00 [facility] [place] [facility] SARS-COV-2 COVID-19 2020-12-10 Completed Unive rsity of PFIZER VACCINE 00:00:00 [facility] [place] [facility] SARS-COV-2 COVID-19 2020-12-10 Completed Unive rsity of PFIZER VACCINE 00:00:00 [facility] [place] [facility] SARS-COV-2 COVID-19 2020-12-10 Completed Unive rsity of PFIZER VACCINE 00:00:00 [facility] [place] [facility] SARS-COV-2 COVID-19 2020-12-10 Completed Unive rsity of PFIZER VACCINE 00:00:00 [facility] [place] [facility] SARS-COV-2 COVID-19 2020-12-10 Completed Unive rsity of PFIZER VACCINE 00:00:00 [facility] [place] [facility] SARS-COV-2 COVID-19 2020-12-10 Completed Unive rsity of PFIZER VACCINE 00:00:00 [facility] [place] [facility] SARS-COV-2 COVID-19 2020-12-10 Completed Unive rsity of PFIZER VACCINE 00:00:00 [facility] [place] [facility] SARS-COV-2 COVID-19 2020-12-10 Completed Unive rsity of PFIZER VACCINE 00:00:00 [facility] [place] [facility] SARS-COV-2 COVID-19 2020-12-10 Completed Unive rsity of PFIZER VACCINE 00:00:00 [facility] [place] [facility] SARS-COV-2 COVID-19 2020-12-10 Completed Unive rsity of PFIZER VACCINE 00:00:00 [facility] [place] [facility] SARS-COV-2 COVID-19 2020-12-10 Completed Unive rsity of PFIZER VACCINE 00:00:00 [facility] [place] [facility] SARS-COV-2 COVID-19 2020-12-10 Completed Unive rsity of PFIZER VACCINE 00:00:00 [facility] SARS-COV-2 COVID-19 2020-12-10 Completed Unive rsity of PFIZER VACCINE 00:00:00 [place] [facility] SARS-COV-2 COVID-19 2020-12-10 Completed Unive rsity of PFIZER VACCINE 00:00:00 [facility] [place] [facility] SARS-COV-2 COVID-19 2020-12-10 Completed Unive rsity of PFIZER VACCINE 00:00:00 [facility] [place] [facility] SARS-COV-2 COVID-19 2020-12-10 Completed Unive rsity of PFIZER VACCINE 00:00:00 [facility] [place] [facility] SARS-COV-2 COVID-19 2020-12-10 Completed Unive rsity of PFIZER VACCINE 00:00:00 [facility] [place] [facility] SARS-COV-2 COVID-19 2020-12-10 Completed Unive rsity of PFIZER VACCINE 00:00:00 [facility] [place] [facility] SARS-COV-2 COVID-19 2020-12-10 Completed Unive rsity of PFIZER VACCINE 00:00:00 [facility] [place] [facility] SARS-COV-2 COVID-19 2020-12-10 Completed Unive rsity of PFIZER VACCINE 00:00:00 [facility] [place] [facility] SARS-COV-2 COVID-19 2020-12-10 Completed Unive rsity of PFIZER VACCINE 00:00:00 [facility] [place] [facility] SARS-COV-2 COVID-19 2020-12-10 Completed Unive rsity of PFIZER VACCINE 00:00:00 [facility] [place] [facility] SARS-COV-2 COVID-19 2020-12-10 Completed Unive rsity of PFIZER VACCINE 00:00:00 [facility] [place] [facility] SARS-COV-2 COVID-19 2020-12-10 Completed Unive rsity of PFIZER VACCINE 00:00:00 [facility] [place] [facility] SARS-COV-2 COVID-19 2020-12-10 Completed Unive rsity of PFIZER VACCINE 00:00:00 [facility] [place] [facility] SARS-COV-2 COVID-19 2020-12-10 Completed Unive rsity of PFIZER VACCINE 00:00:00 [facility] [place] [facility] SARS-COV-2 COVID-19 2020-12-10 Completed Unive rsity of PFIZER VACCINE 00:00:00 [facility] [place] [facility] SARS-COV-2 COVID-19 2020-12-10 Completed Unive rsity of PFIZER VACCINE 00:00:00 [facility] [facility] SARS-COV-2 COVID-19 2020-12-10 Completed [facility] PFIZER VACCINE 00:00:00 [facility] SARS-COV-2 COVID-19 2020-12-10 Completed [facility] PFIZER VACCINE 00:00:00 [facility] SARS-COV-2 COVID-19 2020-12-10 Completed [facility] PFIZER VACCINE 00:00:00 [facility] SARS-COV-2 COVID-19 2020-12-10 Completed [facility] PFIZER VACCINE 00:00:00 [facility] SARS-COV-2 COVID-19 2020-12-10 Completed [facility] PFIZER VACCINE 00:00:00 [facility] SARS-COV-2 COVID-19 2020-12-10 Completed [facility] PFIZER VACCINE 00:00:00 [facility] SARS-COV-2 COVID-19 2020-12-10 Completed [facility] PFIZER VACCINE 00:00:00 [facility] SARS-COV-2 COVID-19 2020-12-10 Completed [facility] PFIZER VACCINE 00:00:00 [facility] SARS-COV-2 COVID-19 2020-12-10 Completed [facility] PFIZER VACCINE 00:00:00 [facility] SARS-COV-2 COVID-19 2020-12-10 Completed [facility] PFIZER VACCINE 00:00:00 [facility] SARS-COV-2 COVID-19 2020-12-10 Completed [facility] PFIZER VACCINE 00:00:00 [facility] SARS-COV-2 COVID-19 2020-12-10 Completed [facility] PFIZER VACCINE 00:00:00 [facility] SARS-COV-2 COVID-19 2020-12-10 Completed [facility] PFIZER VACCINE 00:00:00 [facility] SARS-COV-2 COVID-19 2020-12-10 Completed [facility] PFIZER VACCINE 00:00:00 [facility] SARS-COV-2 COVID-19 2020-12-10 Completed [facility] PFIZER VACCINE 00:00:00 [facility] SARS-COV-2 COVID-19 2020-12-10 Completed [facility] PFIZER VACCINE 00:00:00 [facility] SARS-COV-2 COVID-19 2020-12-10 Completed [facility] PFIZER VACCINE 00:00:00 [facility] SARS-COV-2 COVID-19 2020-12-10 Completed [facility] PFIZER VACCINE 00:00:00 [facility] SARS-COV-2 COVID-19 2020-12-10 Completed [facility] PFIZER VACCINE 00:00:00 [facility] SARS-COV-2 COVID-19 2020-12-10 Completed [facility] PFIZER VACCINE 00:00:00 [facility] SARS-COV-2 COVID-19 2020-12-10 Completed [facility] PFIZER VACCINE 00:00:00 [facility] SARS-COV-2 COVID-19 2020-12-10 Completed [facility] PFIZER VACCINE 00:00:00 [facility] SARS-COV-2 COVID-19 2020-12-10 Completed [facility] PFIZER VACCINE 00:00:00 [facility] SARS-COV-2 COVID-19 2020-12-10 Completed [facility] PFIZER VACCINE 00:00:00 [facility] SARS-COV-2 COVID-19 2020-12-10 Completed [facility] PFIZER VACCINE 00:00:00 [facility] SARS-COV-2 COVID-19 2020-12-10 Completed [facility] PFIZER VACCINE 00:00:00 [facility] SARS-COV-2 COVID-19 2020-12-10 Completed [facility] PFIZER VACCINE 00:00:00 [facility] SARS-COV-2 COVID-19 2020-12-10 Completed [facility] PFIZER VACCINE 00:00:00 [facility] SARS-COV-2 COVID-19 2020-12-10 Completed [facility] PFIZER VACCINE 00:00:00 [facility] SARS-COV-2 COVID-19 2020-12-10 Completed [facility] PFIZER VACCINE 00:00:00 [facility] SARS-COV-2 COVID-19 2020-12-10 Completed [facility] PFIZER VACCINE 00:00:00 [facility] SARS-COV-2 COVID-19 2020-12-10 Completed [facility] PFIZER VACCINE 00:00:00 [facility] SARS-COV-2 COVID-19 2020-12-10 Completed [facility] PFIZER VACCINE 00:00:00 [facility] SARS-COV-2 COVID-19 2020-12-10 Completed [facility] PFIZER VACCINE 00:00:00 [facility] SARS-COV-2 COVID-19 2020-12-10 Completed [facility] PFIZER VACCINE 00:00:00 [facility] SARS-COV-2 COVID-19 2020-12-10 Completed [facility] PFIZER VACCINE 00:00:00 [facility] SARS-COV-2 COVID-19 2020-12-10 Completed [facility] PFIZER VACCINE 00:00:00 [facility] SARS-COV-2 COVID-19 2020-12-10 Completed [facility] PFIZER VACCINE 00:00:00 [facility] SARS-COV-2 COVID-19 2020-12-10 Completed [facility] PFIZER VACCINE 00:00:00 [facility] SARS-COV-2 COVID-19 2020-12-10 Completed [facility] PFIZER VACCINE 00:00:00 [facility] SARS-COV-2 COVID-19 2020-12-10 Completed [facility] PFIZER VACCINE 00:00:00 [facility] SARS-COV-2 COVID-19 2020-12-10 Completed [facility] PFIZER VACCINE 00:00:00 [facility] SARS-COV-2 COVID-19 2020-12-10 Completed [facility] PFIZER VACCINE 00:00:00 [facility] SARS-COV-2 COVID-19 2020-12-10 Completed [facility] PFIZER VACCINE 00:00:00 [facility] SARS-COV-2 COVID-19 2020-12-10 Completed [facility] PFIZER VACCINE 00:00:00 [facility] SARS-COV-2 COVID-19 2020-12-10 Completed [facility] PFIZER VACCINE 00:00:00 [facility] SARS-COV-2 COVID-19 2020-12-10 Completed [facility] PFIZER VACCINE 00:00:00 [facility] SARS-COV-2 COVID-19 2020-12-10 Completed [facility] PFIZER VACCINE 00:00:00 [facility] SARS-COV-2 COVID-19 2020-12-10 Completed [facility] PFIZER VACCINE 00:00:00 [facility] SARS-COV-2 COVID-19 2020-12-10 Completed [facility] PFIZER VACCINE 00:00:00 [facility] SARS-COV-2 COVID-19 2020-12-10 Completed [facility] PFIZER VACCINE 00:00:00 [facility] SARS-COV-2 COVID-19 2020-11-19 Completed [facility] PFIZER VACCINE 00:00:00 [facility] SARS-COV-2 COVID-19 2020-11-19 Completed [facility] PFIZER VACCINE 00:00:00 [facility] SARS-COV-2 COVID-19 2020-11-19 Completed [facility] PFIZER VACCINE 00:00:00 [facility] SARS-COV-2 COVID-19 2020-11-19 Completed [facility] PFIZER VACCINE 00:00:00 [facility] SARS-COV-2 COVID-19 2020-11-19 Completed [facility] PFIZER VACCINE 00:00:00 [facility] SARS-COV-2 COVID-19 2020-11-19 Completed [facility] PFIZER VACCINE 00:00:00 [facility] SARS-COV-2 COVID-19 2020-11-19 Completed [facility] PFIZER VACCINE 00:00:00 [facility] SARS-COV-2 COVID-19 2020-11-19 Completed [facility] PFIZER VACCINE 00:00:00 [facility] SARS-COV-2 COVID-19 2020-11-19 Completed [facility] PFIZER VACCINE 00:00:00 [facility] SARS-COV-2 COVID-19 2020-11-19 Completed [facility] PFIZER VACCINE 00:00:00 [facility] SARS-COV-2 COVID-19 2020-11-19 Completed [facility] PFIZER VACCINE 00:00:00 [facility] SARS-COV-2 COVID-19 2020-11-19 Completed [facility] PFIZER VACCINE 00:00:00 [facility] SARS-COV-2 COVID-19 2020-11-19 Completed [facility] PFIZER VACCINE 00:00:00 [facility] SARS-COV-2 COVID-19 2020-11-19 Completed [facility] PFIZER VACCINE 00:00:00 [facility] SARS-COV-2 COVID-19 2020-11-19 Completed [facility] PFIZER VACCINE 00:00:00 [facility] SARS-COV-2 COVID-19 2020-11-19 Completed [facility] PFIZER VACCINE 00:00:00 [facility] SARS-COV-2 COVID-19 2020-11-19 Completed [facility] PFIZER VACCINE 00:00:00 [facility] SARS-COV-2 COVID-19 2020-11-19 Completed [facility] PFIZER VACCINE 00:00:00 [facility] SARS-COV-2 COVID-19 2020-11-19 Completed [facility] PFIZER VACCINE 00:00:00 [facility] SARS-COV-2 COVID-19 2020-11-19 Completed [facility] PFIZER VACCINE 00:00:00 [facility] SARS-COV-2 COVID-19 2020-11-19 Completed [facility] PFIZER VACCINE 00:00:00 [facility] SARS-COV-2 COVID-19 2020-11-19 Completed [facility] PFIZER VACCINE 00:00:00 [facility] SARS-COV-2 COVID-19 2020-11-19 Completed [facility] PFIZER VACCINE 00:00:00 [facility] SARS-COV-2 COVID-19 2020-11-19 Completed [facility] PFIZER VACCINE 00:00:00 [facility] SARS-COV-2 COVID-19 2020-11-19 Completed [facility] PFIZER VACCINE 00:00:00 [facility] SARS-COV-2 COVID-19 2020-11-19 Completed [facility] PFIZER VACCINE 00:00:00 [facility] SARS-COV-2 COVID-19 2020-11-19 Completed [facility] PFIZER VACCINE 00:00:00 [facility] SARS-COV-2 COVID-19 2020-11-19 Completed [facility] PFIZER VACCINE 00:00:00 [place] [facility] SARS-COV-2 COVID-19 2020-11-19 Completed [facility] PFIZER VACCINE 00:00:00 [facility] SARS-COV-2 COVID-19 2020-11-19 Completed [facility] PFIZER VACCINE 00:00:00 [facility] SARS-COV-2 COVID-19 2020-11-19 Completed [facility] PFIZER VACCINE 00:00:00 [facility] SARS-COV-2 COVID-19 2020-11-19 Completed [facility] PFIZER VACCINE 00:00:00 [facility] SARS-COV-2 COVID-19 2020-11-19 Completed [facility] PFIZER VACCINE 00:00:00 [facility] SARS-COV-2 COVID-19 2020-11-19 Completed [facility] PFIZER VACCINE 00:00:00 [facility] SARS-COV-2 COVID-19 2020-11-19 Completed [facility] PFIZER VACCINE 00:00:00 [facility] SARS-COV-2 COVID-19 2020-11-19 Completed [facility] PFIZER VACCINE 00:00:00 [facility] SARS-COV-2 COVID-19 2020-11-19 Completed [facility] PFIZER VACCINE 00:00:00 [facility] SARS-COV-2 COVID-19 2020-11-19 Completed [facility] PFIZER VACCINE 00:00:00 [facility] SARS-COV-2 COVID-19 2020-11-19 Completed [facility] PFIZER VACCINE 00:00:00 [facility] SARS-COV-2 COVID-19 2020-11-19 Completed [facility] PFIZER VACCINE 00:00:00 [facility] SARS-COV-2 COVID-19 2020-11-19 Completed [facility] PFIZER VACCINE 00:00:00 [facility] SARS-COV-2 COVID-19 2020-11-19 Completed [facility] PFIZER VACCINE 00:00:00 [facility] SARS-COV-2 COVID-19 2020-11-19 Completed [facility] PFIZER VACCINE 00:00:00 [facility] SARS-COV-2 COVID-19 2020-11-19 Completed [facility] PFIZER VACCINE 00:00:00 [facility] SARS-COV-2 COVID-19 2020-11-19 Completed [facility] PFIZER VACCINE 00:00:00 [facility] SARS-COV-2 COVID-19 2020-11-19 Completed [facility] PFIZER VACCINE 00:00:00 [facility] SARS-COV-2 COVID-19 2020-11-19 Completed [facility] PFIZER VACCINE 00:00:00 [facility] SARS-COV-2 COVID-19 2020-11-19 Completed [facility] PFIZER VACCINE 00:00:00 [facility] SARS-COV-2 COVID-19 2020-11-19 Completed [facility] PFIZER VACCINE 00:00:00 [facility] SARS-COV-2 COVID-19 2020-11-19 Completed [facility] PFIZER VACCINE 00:00:00 [facility] SARS-COV-2 COVID-19 2020-11-19 Completed [facility] PFIZER VACCINE 00:00:00 [facility] SARS-COV-2 COVID-19 2020-11-19 Completed [facility] PFIZER VACCINE 00:00:00 [facility] SARS-COV-2 COVID-19 2020-11-19 Completed [facility] PFIZER VACCINE 00:00:00 [facility] SARS-COV-2 COVID-19 2020-11-19 Completed [facility] PFIZER VACCINE 00:00:00 [facility] SARS-COV-2 COVID-19 2020-11-19 Completed [facility] PFIZER VACCINE 00:00:00 [facility] SARS-COV-2 COVID-19 2020-11-19 Completed [facility] PFIZER VACCINE 00:00:00 [facility] SARS-COV-2 COVID-19 2020-11-19 Completed [facility] PFIZER VACCINE 00:00:00 [facility] SARS-COV-2 COVID-19 2020-11-19 Completed [facility] PFIZER VACCINE 00:00:00 [facility] SARS-COV-2 COVID-19 2020-11-19 Completed [facility] PFIZER VACCINE 00:00:00 [place] [facility] SARS-COV-2 COVID-19 2020-11-19 Completed [facility] PFIZER VACCINE 00:00:00 [facility] SARS-COV-2 COVID-19 2020-11-19 Completed [facility] PFIZER VACCINE 00:00:00 [facility] SARS-COV-2 COVID-19 2020-11-19 Completed [facility] PFIZER VACCINE 00:00:00 [facility] SARS-COV-2 COVID-19 2020-11-19 Completed [facility] PFIZER VACCINE 00:00:00 [facility] SARS-COV-2 COVID-19 2020-11-19 Completed [facility] PFIZER VACCINE 00:00:00 [facility] SARS-COV-2 COVID-19 2020-11-19 Completed [facility] PFIZER VACCINE 00:00:00 [facility] SARS-COV-2 COVID-19 2020-11-19 Completed [facility] PFIZER VACCINE 00:00:00 [facility] SARS-COV-2 COVID-19 2020-11-19 Completed [facility] PFIZER VACCINE 00:00:00 [facility] SARS-COV-2 COVID-19 2020-11-19 Completed [facility] PFIZER VACCINE 00:00:00 [facility] SARS-COV-2 COVID-19 2020-11-19 Completed [facility] PFIZER VACCINE 00:00:00 [facility] SARS-COV-2 COVID-19 2020-11-19 Completed [facility] PFIZER VACCINE 00:00:00 [facility] SARS-COV-2 COVID-19 2020-11-19 Completed [facility] PFIZER VACCINE 00:00:00 [facility] SARS-COV-2 COVID-19 2020-11-19 Completed [facility] PFIZER VACCINE 00:00:00 [facility] SARS-COV-2 COVID-19 2020-11-19 Completed [facility] PFIZER VACCINE 00:00:00 [facility] SARS-COV-2 COVID-19 2020-11-19 Completed [facility] PFIZER VACCINE 00:00:00 [facility] SARS-COV-2 COVID-19 2020-11-19 Completed [facility] PFIZER VACCINE 00:00:00 [facility] SARS-COV-2 COVID-19 2020-11-19 Completed [facility] PFIZER VACCINE 00:00:00 [facility] SARS-COV-2 COVID-19 2020-11-19 Completed [facility] PFIZER VACCINE 00:00:00 [facility] SARS-COV-2 COVID-19 2020-11-19 Completed [facility] PFIZER VACCINE 00:00:00 [facility] SARS-COV-2 COVID-19 2020-11-19 Completed [facility] PFIZER VACCINE 00:00:00 [facility] SARS-COV-2 COVID-19 2020-11-19 Completed [facility] PFIZER VACCINE 00:00:00 [facility] SARS-COV-2 COVID-19 2020-11-19 Completed [facility] PFIZER VACCINE 00:00:00 [facility] SARS-COV-2 COVID-19 2020-11-19 Completed [facility] PFIZER VACCINE 00:00:00 [facility] SARS-COV-2 COVID-19 2020-11-19 Completed [facility] PFIZER VACCINE 00:00:00 [facility] SARS-COV-2 COVID-19 2020-11-19 Completed [facility] PFIZER VACCINE 00:00:00 [facility] SARS-COV-2 COVID-19 2020-11-19 Completed [facility] PFIZER VACCINE 00:00:00 [facility] SARS-COV-2 COVID-19 2020-11-19 Completed [facility] PFIZER VACCINE 00:00:00 [facility] SARS-COV-2 COVID-19 2020-11-19 Completed [facility] PFIZER VACCINE 00:00:00 [facility] SARS-COV-2 COVID-19 2020-11-19 Completed [facility] PFIZER VACCINE 00:00:00 [facility] SARS-COV-2 COVID-19 2020-11-19 Completed [facility] PFIZER VACCINE 00:00:00 [facility] SARS-COV-2 COVID-19 2020-11-19 Completed [facility] PFIZER VACCINE 00:00:00 [facility] SARS-COV-2 COVID-19 2020-11-19 Completed [facility] PFIZER VACCINE 00:00:00 [facility] SARS-COV-2 COVID-19 2020-11-19 Completed [facility] PFIZER VACCINE 00:00:00 [facility] SARS-COV-2 COVID-19 2020-11-19 Completed [facility] PFIZER VACCINE 00:00:00 [facility] SARS-COV-2 COVID-19 2020-11-19 Completed [facility] PFIZER VACCINE 00:00:00 [facility] SARS-COV-2 COVID-19 2020-11-19 Completed [facility] PFIZER VACCINE 00:00:00 [facility] SARS-COV-2 COVID-19 2020-11-19 Completed [facility] PFIZER VACCINE 00:00:00 [facility] SARS-COV-2 COVID-19 2020-11-19 Completed [facility] PFIZER VACCINE 00:00:00 [facility] SARS-COV-2 COVID-19 2020-11-19 Completed [facility] PFIZER VACCINE 00:00:00 [facility] SARS-COV-2 COVID-19 2020-11-19 Completed [facility] PFIZER VACCINE 00:00:00 [facility] SARS-COV-2 COVID-19 2020-11-19 Completed [facility] PFIZER VACCINE 00:00:00 [facility] Pneumococcal 2018-07-05 Completed [facility] [...] 2018-07-05 Completed [facility] Polysaccharide, 00:00:00 [place] [facility] PPSV23 (PNEUMOVAX) [facility] Pneumococcal 2018-07-05 Completed [facility] f Polysaccharide, 00:00:00 [place] [facility] PPSV23 (PNEUMOVAX) [facility] Pneumococcal 2018-07-05 Completed [facility] f Polysaccharide, 00:00:00 [place] [facility] PPSV23 (PNEUMOVAX) [facility] pneumococcal 2018-06-15 Completed [facility] 23-valent vaccine 19:53:00 Vital Signs Vital Name Observation Time Observation Value Comments Source Systolic blood 2023-01-27 125 mm[Hg] [facility] pressure 17:08:00 [facility] Diastolic blood 2023-01-27 79 mm[Hg] [place] o f pressure 17:08:00 [facility] Heart rate 2023-01-27 62 /min [facility] 17:08:00 [facility] Body height 2023-01-27 157.5 cm [facility] 17:08:00 [facility] Body weight 2023-01-27 113.309 kg [facility] 17:08:00 [facility] BMI 2023-01-27 45.69 kg/m2 [facility] 17:08:00 [facility] Oxygen saturation 2023-01-27 100 /min [facility] in Arterial blood 17:08:00 [place] [facility] Pulse oxim[facility] Systolic blood 2023-01-17 113 mm[Hg] [facility] of pressure 18:55:00 [facility] Diastolic blood 2023-01-17 77 mm[Hg] [facility] o f pressure 18:55:00 [facility] Heart rate 2023-01-17 65 /min University of 18:55:00 [facility] Body height 2023-01-17 157.5 cm University of 18:55:00 [facility] Body weight 2023-01-17 102.331 kg University of 18:55:00 [facility] BMI 2023-01-17 41.26 kg/m2 University of 18:55:00 [facility] Oxygen saturation 2023-01-17 100 /min [facility] of in Arterial blood 18:55:00 [place] [facility]ulse [facility] Systolic blood 2022-12-28 127 mm[Hg] [facility] pressure 19:49:00 [facility] Diastolic blood 2022-12-28 71 mm[Hg] [facility] o f pressure 19:49:00 [facility] Heart rate 2022-12-28 59 /min [facility] of 19:49:00 [facility] Body temperature 2022-12-28 36.5 [place] [facility] 19:49:00 [facility] Respiratory rate 2022-12-28 16 /min University of 19:49:00 [facility] Body height 2022-12-28 157.5 cm University of 19:49:00 [facility] Body weight 2022-12-28 111.63 kg University of 19:49:00 [facility] BMI 2022-12-28 45.01 kg/m2 University of 19:49:00 [facility] Oxygen saturation 2022-12-28 98 /min [facility] of in Arterial blood 19:49:00 [facility] diane by Pulse oximetry Branch Systolic blood 2022-11-02 124 mm[Hg] [facility] of pressure 19:59:00 [facility] Diastolic blood 2022-11-02 78 mm[Hg] [facility] o f pressure 19:59:00 [facility] Heart rate 2022-11-02 58 /min University of 19:59:00 [facility] Body temperature 2022-11-02 36.78 [place] [facility] 19:59:00 [facility] Respiratory rate 2022-11-02 16 /min [facility] of 19:59:00 [facility] Body height 2022-11-02 157.5 cm University of 19:59:00 [facility] Body weight 2022-11-02 109.181 kg University of 19:59:00 [facility] BMI 2022-11-02 44.02 kg/m2 University of 19:59:00 [facility] Oxygen saturation 2022-11-02 98 /min [facility] of in Arterial blood 19:59:00 [facility] diane by Pulse oxim[facility] Systolic blood 2022-11-02 122 mm[Hg] [facility] of pressure 14:40:00 [facility] Diastolic blood 2022-11-02 73 mm[Hg] [facility] o f pressure 14:40:00 [facility] Heart rate 2022-11-02 53 /min [facility] of 14:40:00 [facility] Respiratory rate 2022-11-02 19 /min University of 14:40:00 [facility] Oxygen saturation 2022-11-02 98 /min [facility] of in Arterial blood 14:40:00 [facility] diane by Pulse oximetry Branch Body temperature 2022-11-02 36.5 [facility] of 09:55:00 [facility] Systolic blood 2022-10-25 118 mm[Hg] [facility] of pressure 19:30:00 [facility] Diastolic blood 2022-10-25 66 mm[Hg] [facility] o f pressure 19:30:00 [facility] Respiratory rate 2022-10-25 17 /min University of 19:30:00 [facility] Oxygen saturation 2022-10-25 99 /min University of in Arterial blood 19:30:00 [facility] diane by Pulse oximetry Branch Heart rate 2022-10-25 52 /min University of :26:00 [facility] Body temperature 2022-10-25 36.33 [place] [facility] of 12:26:00 [facility] Body height 2022-10-25 157.5 cm University of 12:26:00 [facility] Body weight 2022-10-25 109 kg University of 12:26:00 [facility] BMI 2022-10-25 43.95 kg/m2 University of 12:26:00 [facility] Systolic blood 2022-10-25 109 mm[Hg] University of pressure 12:26:00 [facility] Diastolic blood 2022-10-25 83 mm[Hg] University o f pressure 12:26:00 [facility] Heart rate 2022-10-25 52 /min University of 12:26:00 [facility] Body temperature 2022-10-25 36.33 Elizabeth University of 12::00 [facility] Respiratory rate 2022-10-25 18 /min University of 12::00 [facility] Body height 2022-10-25 157.5 cm University of 12::00 [facility] Body weight 2022-10-25 109 kg University of 12::00 [facility] BMI 2022-10-25 43.95 kg/m2 University of 12::00 [facility] Oxygen saturation 2022-10-25 100 /min University of in Arterial blood 12:26:00 [place] [facility] by Pulse oximetry Branch Systolic blood 2022-10-05 126 mm[Hg] University of pressure 18:51:00 [facility] Diastolic blood 2022-10-05 73 mm[Hg] University o f pressure 18:51:00 [facility] Heart rate 2022-10-05 63 /min University of 18:51:00 [facility] Body temperature 2022-10-05 36.72 Elizabeth University of 18:48:00 [facility] Respiratory rate 2022-10-05 17 /min University of 18:48:00 [facility] Body height 2022-10-05 157.5 cm University of 18:48:00 [facility] Body weight 2022-10-05 107.321 kg University of 18:48:00 [facility] BMI 2022-10-05 43.27 kg/m2 University of 18:48:00 [facility] Oxygen saturation 2022-10-05 96 /min University of in Arterial blood 18:48:00 [facility] diane by Pulse oximetry Branch Systolic blood 2022-10-04 138 mm[Hg] University of pressure 16:09:00 [facility] Diastolic blood 2022-10-04 87 mm[Hg] University o f pressure 16:09:00 [facility] Heart rate 2022-10-04 54 /min University of 16:09:00 [facility] Body temperature 2022-10-04 36.83 Elizabeth University of 16:09:00 [facility] Body height 2022-10-04 157.5 cm University of 16:09:00 [facility] Body weight 2022-10-04 108.455 kg University of 16:09:00 [facility] BMI 2022-10-04 43.73 kg/m2 University of 16:09:00 [facility] Oxygen saturation 2022-10-04 100 /min University of in Arterial blood 16:09:00 [facility] diane by Pulse oximetry Branch Systolic blood 2022-09-29 139 mm[Hg] University of pressure 14:53:00 [facility] Diastolic blood 2022-09-29 81 mm[Hg] University o f pressure 14:53:00 [facility] Heart rate 2022-09-29 53 /min University of 14:53:00 [facility] Body height 2022-09-29 157.5 cm University of 14:53:00 [facility] Body weight 2022-09-29 108.999 kg University of 14:53:00 [facility] BMI 2022-09-29 43.95 kg/m2 University of 14:53:00 [facility] Oxygen saturation 2022-09-29 99 /min University of in Arterial blood 14:53:00 [facility] by Pulse oximetry Branch Systolic blood 2022-09-27 123 mm[Hg] University of pressure 16:34:00 [facility] Diastolic blood 2022-09-27 85 mm[Hg] University o f pressure 16:34:00 [facility] Heart rate 2022-09-27 60 /min University of 16:34:00 [facility] Body temperature 2022-09-27 36.67 Elizabeth University of 16:34:00 [facility] Respiratory rate 2022-09-27 20 /min University of 16:34:00 [facility] Body height 2022-09-27 157.5 cm University of 16:34:00 [facility] Body weight 2022-09-27 108.863 kg University of 16:34:00 [facility] BMI 2022-09-27 43.90 kg/m2 University of 16:34:00 [facility] Oxygen saturation 2022-09-27 97 /min University of in Arterial blood 16:34:00 [facility] diane by Pulse oximetry Branch Body temperature 2022-09-21 36.5 Elizabeth University of 15:08:00 [facility] Body height 2022-09-21 157.5 cm University of 15:08:00 [facility] Body weight 2022-09-21 107.956 kg University of 15:08:00 [facility] BMI 2022-09-21 43.53 kg/m2 University of 15:08:00 [facility] Systolic blood 2022-09-20 113 mm[Hg] University of pressure 15:42:00 [facility] Diastolic blood 2022-09-20 76 mm[Hg] University o f pressure 15:42:00 [facility] Heart rate 2022-09-20 57 /min University of 15:42:00 [facility] Body temperature 2022-09-20 36.44 Elizabeth University of 15:42:00 [facility] Body height 2022-09-20 157.5 cm University of 15:42:00 [facility] Body weight 2022-09-20 107.956 kg University of 15:42:00 [facility] BMI 2022-09-20 43.53 kg/m2 University of 15:42:00 [facility] Oxygen saturation 2022-09-20 99 /min University of in Arterial blood 15:42:00 [place] [facility] by P[facility] Systolic blood 2022-08-02 135 mm[Hg] University of pressure 14:40:00 [facility] Diastolic blood 2022-08-02 73 mm[Hg] University o f pressure 14:40:00 [facility] Heart rate 2022-08-02 49 /min University of 14:40:00 [facility] Body temperature 2022-08-02 36.22 Elizabeth University of 14:40:00 [facility] Respiratory rate 2022-08-02 18 /min University of 14:40:00 [facility] Body height 2022-08-02 157.5 cm University of 14:40:00 [facility] Body weight 2022-08-02 104.463 kg University of 14:40:00 [facility] BMI 2022-08-02 42.12 kg/m2 University of 14:40:00 [facility] Oxygen saturation 2022-08-02 100 /min University of in Arterial blood 14:40:00 [place] [facility] by Pulse oxim[facility] Branch Systolic blood 2022-07-21 122 mm[Hg] University of pressure 21:42:00 [facility] Diastolic blood 2022-07-21 78 mm[Hg] University o f pressure 21:42:00 [facility] Heart rate 2022-07-21 66 /min University of 21:42:00 [facility] Body temperature 2022-07-21 36.94 Elizabeth University of 21:42:00 [facility] Body height 2022-07-21 157.5 cm University of 21:42:00 [facility] Body weight 2022-07-21 102.967 kg University of 21:42:00 [facility] BMI 2022-07-21 41.52 kg/m2 University of 21:42:00 [facility] Oxygen saturation 2022-07-21 100 /min University of in Arterial blood 21:42:00 [place] [facility] by Pulse oxim[facility] Systolic blood 2022-05-27 130 mm[Hg] University of pressure 21:27:00 [facility] Diastolic blood 2022-05-27 86 mm[Hg] University o f pressure 21:27:00 [facility] Heart rate 2022-05-27 54 /min University of 21:27:00 [facility] Body temperature 2022-05-27 36.72 Elizabeth University of :27:00 [facility] Body height 2022-05-27 160 cm University of 21:27:00 [facility] Body weight 2022-05-27 101.288 kg University of ::00 [facility] BMI 2022-05-27 39.56 kg/m2 University of 21:27:00 [facility] Oxygen saturation 2022-05-27 98 /min University of in Arterial blood 21:27:00 [place] [facility] by Pulse oxim[facility] Branch Systolic blood 2022-05-17 105 mm[Hg] University of pressure 17:17:00 [facility] Diastolic blood 2022-05-17 71 mm[Hg] University o f pressure 17:17:00 [facility] Heart rate 2022-05-17 48 /min University of 17:17:00 [facility] Body temperature 2022-05-17 37.06 Elizabeth University of 17:17:00 [facility] Body height 2022-05-17 160 cm University of 17:17:00 [facility] Body weight 2022-05-17 102.967 kg University of 17:17:00 [facility] BMI 2022-05-17 40.21 kg/m2 University of 17:17:00 [facility] Oxygen saturation 2022-05-17 99 /min University of in Arterial blood 17:17:00 [place] [facility] by Pulse oxim[facility] Branch Systolic blood 2022-04-15 149 mm[Hg] University of pressure 21:00:00 [facility] Diastolic blood 2022-04-15 93 mm[Hg] University o f pressure 21:00:00 [facility] Heart rate 2022-04-15 47 /min University of 21:00:00 [facility] Respiratory rate 2022-04-15 13 /min University of 21:00:00 [facility] Oxygen saturation 2022-04-15 99 /min University of in Arterial blood 21:00:00 [place] [facility] by Pulse oxim[facility] Body temperature 2022-04-15 36.56 Elizabeth University of 18:50:00 [facility] Body height 2022-04-15 160 cm University of 18:50:00 [facility] Body weight 2022-04-15 99.791 kg University of 18:50:00 [facility] BMI 2022-04-15 38.97 kg/m2 University of 18:50:00 [facility] Systolic blood 2022-04-15 139 mm[Hg] University of pressure 17:50:00 [facility] Diastolic blood 2022-04-15 86 mm[Hg] University o f pressure 17:50:00 [facility] Heart rate 2022-04-15 49 /min University of 17:50:00 [facility] Body height 2022-04-15 160 cm University of 17:50:00 [facility] Body weight 2022-04-15 99.338 kg University of 17:50:00 [facility] BMI 2022-04-15 38.79 kg/m2 University of 17:50:00 [facility] Oxygen saturation 2022-04-15 100 /min University of in Arterial blood 17:50:00 [place] [facility] by Pulse oxim[facility] Branch Systolic blood 2022-03-12 118 mm[Hg] University of pressure 13:26:00 [facility] Diastolic blood 2022-03-12 79 mm[Hg] University o f pressure 13:26:00 [facility] Heart rate 2022-03-12 48 /min University of 13:26:00 [facility] Body height 2022-03-12 160 cm University of 13:26:00 [facility] Body weight 2022-03-12 99.746 kg University of 13:26:00 [facility] BMI 2022-03-12 38.95 kg/m2 University of 13:26:00 [facility] Oxygen saturation 2022-03-12 100 /min University of in Arterial blood 13:26:00 [place] [facility] by Pulse oxim[facility] Systolic blood 2022-03-10 114 mm[Hg] University of pressure 20:14:00 [place] [facility] Diastolic blood 2022-03-10 75 mm[Hg] University o f pressure 20:14:00 [facility] Heart rate 2022-03-10 69 /min University of 20:14:00 [facility] Body temperature 2022-03-10 36.78 Elizabeth University of 20:14:00 [facility] Body height 2022-03-10 160 cm University of 20:14:00 [facility] Body weight 2022-03-10 99.791 kg University of 20:14:00 [facility] BMI 2022-03-10 38.97 kg/m2 University of 20:14:00 [facility] Oxygen saturation 2022-03-10 100 /min University of in Arterial blood 20:14:00 [facility] diane by Pulse oximetry Branch Body height 2022-03-04 160 cm University of 19:56:00 [facility] Body weight 2022-03-04 98.431 kg University of 19:56:00 [facility] BMI 2022-03-04 38.44 kg/m2 University of 19:56:00 [facility] Systolic blood 2022-02-23 129 mm[Hg] University of pressure 14:48:00 [facility] Diastolic blood 2022-02-23 78 mm[Hg] University o f pressure 14:48:00 [facility] Heart rate 2022-02-23 51 /min University of 14:48:00 [facility] Body temperature 2022-02-23 36.22 Elizabeth University of 14:48:00 [facility] Respiratory rate 2022-02-23 17 /min University of 14:48:00 [facility] Body height 2022-02-23 160 cm per pt University of 14:48:00 [facility] Body weight 2022-02-23 98.657 kg University of 14:48:00 [facility] BMI 2022-02-23 38.53 kg/m2 University of 14:48:00 [facility] Oxygen saturation 2022-02-23 98 /min University of in Arterial blood 14:48:00 [facility] diane by Pulse oximetry Branch Respitory Rate 2018-09-27 [facility]io 17:30:00 Systolic (mm Hg) 2018-09-27 [facility] 17:30:00 Diastolic (mm Hg) 2018-09-27 [facility] ermann 17:30:00 Systolic (mm Hg) 2018-09-27 [facility] 17:00:00 Diastolic (mm Hg) 2018-09-27 [facility] 17:00:00 Respitory Rate 2018-09-27 [facility] 17:00:00 Systolic (mm Hg) 2018-09-27 [facility] 16:45:00 Diastolic (mm Hg) 2018-09-27 [facility] 16:45:00 Respitory Rate 2018-09-27 [facility] 16:45:00 Heart Rate 2018-09-27 [facility] n 13:00:00 BMI Calculated 2018-09-13 [facility] 17:20:00 Weight 2018-09-13 [facility] n 17:20:00 Height 2018-09-13 160.02 cm [facility] 17:20:00 Heart Rate 2018-09-13 [facility] 17:20:00 BP Systolic 2018-08-04 153 mm[Hg] Location: [place]; [facility] 11:06:00 Position: Sitting BP Diastolic 2018-08-04 96 mm[Hg] Location: [place]; [facility] 11:06:00 Position: Sitting Height 2018-08-04 63 [in_us] [facility] 11:06:00 Weight 2018-08-04 361 [lb_av] [facility] 11:06:00 Body Mass Index 2018-08-04 63.95 kg/m2 [facility] Calculated 11:06:00 Temperature 2018-08-04 97.4 [degF] Method: Oral [facility] 11:06:00 Heart Rate 2018-08-04 77 /min [facility] 11:06:00 Systolic (mm Hg) 2018-06-15 [facility] rmann 18:00:00 Diastolic (mm Hg) 2018-06-15 [facility] 18:00:00 Respitory Rate 2018-06-15 [facility] 17:00:00 Respitory Rate 2018-06-15 [facility] 14:00:00 Systolic (mm Hg) 2018-06-15 [facility] 14:00:00 Diastolic (mm Hg) 2018-06-15 [facility] 14:00:00 Respitory Rate 2018-06-15 [facility] 13:00:00 Systolic (mm Hg) 2018-06-15 [facility] 12:00:00 Diastolic (mm Hg) 2018-06-15 [facility] Deb ermann 12:00:00 Temperature Oral 2018-06-15 98.4 F [facility] Jonah rmann (F) 02:00:00 Temperature Oral 2018-06-14 97.7 F [facility] Jonah rmann (F) 22:00:00 Height 2018-06-13 160.02 cm [facility] 16:57:00 Height 2018-06-13 160.02 cm [facility] 15:48:00 Height 2018-06-13 160.02 cm [facility] 14:19:00 BMI Calculated 2018-06-13 [facility] 10:34:00 Weight 2018-06-13 [facility] 10:34:00 BP Systolic 2018-05-09 165 mm[Hg] Location: [place]; [facility] 00:00:00 Position: Sitting BP Diastolic 2018-05-09 91 mm[Hg] Location: [place]; [facility] 00:00:00 Position: Sitting Height 2018-05-09 63 [in_us] [facility] 00:00:00 Weight 2018-05-09 354.375 [lb_av] [facility] 00:00:00 Body Mass Index 2018-05-09 62.77 kg/m2 [facility] Calculated 00:00:00 Temperature 2018-05-09 99 [degF] Method: Oral [facility] 00:00:00 Heart Rate 2018-05-09 66 /min [facility] 00:00:00 BP Systolic 2018-02-21 155 mm[Hg] Location: [place]; [facility] 17:49:00 Position: Sitting BP Diastolic 2018-02-21 93 mm[Hg] Location: [place]; [facility] 17:49:00 Position: Sitting Height 2018-02-21 63 [in_us] [facility] 17:49:00 Weight 2018-02-21 355 [lb_av] [facility] 17:49:00 Body Mass Index 2018-02-21 62.89 kg/m2 [facility] Calculated 17:49:00 Temperature 2018-02-21 98.5 [degF] Method: Oral [facility] 17:49:00 Heart Rate 2018-02-21 82 /min [facility] 17:49:00 BP Systolic 2018-01-17 158 mm[Hg] Location: [place]; [facility] 14:18:00 Position: Sitting BP Diastolic 2018-01-17 [...] 09:28:00 Temperature 2017-12-16 98.1 [degF] Method: Oral [facility] 09:28:00 Heart Rate 2017-12-16 66 /min [facility] 09:28:00 Procedures Procedure Date / Time Performing Clinician Source Performed DUPLEX VENOUS LEG LEFT - BY 2023-02-09 16:32:00 [facility] Mini Martinez [facility] AUTHORIZATION FOR RELEASE 2023-01-17 05:01:00 Doctor Unassigned, [facility] PHYSICIAN ORDERS 2022-11-16 05:01:00 Doctor Unassigned, [facility] XR CHEST 1 VW 2022-11-02 10:42:[address] [facility] LIPASE 2022-11-02 10:21:[address] [facility] TROPONIN I 2022-11-02 10:21:[address] [facility] COMP. METABOLIC PANEL 2022-11-02 10:21:00 Sebastien Hanson [facility] ([id number]) Medical Branch CBC WITH DIFF 2022-11-02 10:21:[address] [facility] PROTHROMBIN TIME / INR 2022-11-02 10:21:00 Sebastien Hanson [facility] N-TERMINAL PRO-BNP 2022-11-02 10:21:00 Sebastien Hanson [facility] CONSENT/REFUSAL FOR 2022-11-02 09:47:07 Doctor Unaallison, [facility] DIAGNOSIS AND TREATMENT [facility] RADIOFREQUENCY 2022-10-25 14:58:00 Glenna [facility] [place] THERMOCOAGULATION OF Medical [facility] VARICOSE VEINS POCT GLUCOSE (AUTOMATED) 2022-10-25 12:48:00 Glenna Michael [facility] POCT GLUCOSE (AUTOMATED) 2022-10-25 12:48:00 Glenna Michael [facility] ASSIGNMENT OF BENEFITS 2022-10-25 11:41:18 Doctor Unassmelinda, [facility] Name [facility] POCT MOLECULAR STREP 2022-10-04 16:06:00 Anju Irwin [facility] POCT SARS-COV-2 ANTIGEN 2022-10-04 00:00:00 Anju Irwin [facility] (BINAX NOW) [facility] [place] MODIFIED BARIUM SWALLOW 2022-09-30 15:10:00 Segundo Michaud [facility] PHYSICIAN ORDERS 2022-09-20 05:01:00 Doctor Cynthia, [facility] NO SHOW OR MISSED 2022-08-12 21:07:22 Doctor Cynthia, [facility] APPOINTMENT POLICY [facility] h ACKNOWLEDGEMENT REFERRAL- REQUEST/RESPONSE 2022-06-01 06:01:00 Doctor Cynthia , [facility] Name [facility] HB CREATININE SERUM/BLOOD 2022-05-18 20:21:00 Diana Hopkins [facility] FOR IMAGING [facility] CT SOFT TISSUE NECK W 2022-05-18 19:30:00 Diana Hopkins [facility] CONTRAST [facility] EKG-12 LEAD 2022-04-15 20:41:17 Chandler Joshi [facility] CT ABDOMEN PELVIS W 2022-04-15 20:20:16 [facility] LIPASE 2022-04-15 19:22:00 Chandler Joshi [facility] TROPONIN I 2022-04-15 19:22:00 Chandler Joshi [facility] HEPATIC FUNCTION PANEL 2022-04-15 19:22:00 Chandler Joshi [facility] ([id number]) (ALB,T.PRO,BILI Medical Branch T,BU/BC,ALT,AST,ALK PHOS) BASIC METABOLIC PANEL (NA, 2022-04-15 19:22:00 Chandler Joshi [facility] K, CL, CO2, GLUCOSE, BUN, Medica l Branch CREATININE, CA) CBC WITH DIFF 2022-04-15 19:22:00 Chandler Joshi [facility] URINALYSIS 2022-04-15 19:22:00 Chandler Joshi [facility] N-TERMINAL PRO-BNP 2022-04-15 19:22:00 Chandler Joshi [facility] CONSENT/REFUSAL FOR 2022-04-15 18:46:02 Doctor Unassigned, [facility] DIAGNOSIS AND TREATMENT [facility] EXTERNAL PROVIDER - ADC 2022-03-23 05:01:00 Doctor Unassigned, [facility] CARDIOLOGY [facility] FLU VACC ([id number]), 6 2022-03-12 14:03:53 Doctor Unassigned, [facility] MO-64 YRS, .5ML, IM, QUAD [facility] (FLUCELVAX) OPHTHALMOLOGY DIAGNOSTIC 2022-03-04 05:01:00 Doctor Unassigned, [facility] TEST [facility] [id number] 2021-05-04 00:00:00 SCATE [facility] [id number] 2021-05-04 00:00:00 SCATE [facility] [id number] 2021-05-04 00:00:00 SCATE [facility] [id number] 2021-05-04 00:00:00 SCATE [facility] Arthroscopy of knee with 2015-01-13 05:00:00 Roldan Marquez medial and lateral meniscectomy Operation<sup>1</sup> 2013-06-13 06:00:00 Everton Barr Hysterectomy 2008-06-13 06:00:00 Oskar espino Tubal ligation 1996-06-13 06:00:00 [facility] Her espino Operation<sup>3</sup> 1980-06-13 06:00:00 [...] [facility] 00:00:00 (12+) [code = [facility] DEPRESSION SCREENING (12+)] Future Scheduled 2021-02-[address] [facility] 00:00:00 (#1) [code = [facility] INFLUENZA VACCINE (#1)] Future Scheduled 2020-12-[address] [facility] 00:[facility]:00 (procedure) [code = [facility] [id number]] Future Scheduled 2018-06-[address] [facility] 00:00:00 WELLNESS (YEAR 2 or Medical Center FIRST YEAR if no IPPE) [code = MEDICARE ANNUAL WELLNESS (YEAR 2 or FIRST YEAR if no IPPE)] Future Scheduled [address] [facility] 00:00:00 [facility] cervix (procedure) [code = 381442706] Future Scheduled 1994 DTAP/TDAP/TD VACCINES [facility] 00:00:00 (1 - Tdap) [code = Medical C enter DTAP/TDAP/TD VACCINES (1 - Tdap)] Future Scheduled 1993 HEPATITIS C SCREENING [facility] 00:00:00 [code = HEPATITIS C Medical Center SCREENING] Future Scheduled 1980 COVID-19 VACCINE (1) [facility] 00:00:00 [code = COVID-19 Medical [facility] [facility] [address] VACCINE (1)] Future Scheduled [address] [facility] Test 00:00:00 malignant neoplasm of [facility] colon (procedure) [code = 091216708] Encounters Start End Encounter Admission Attending Care Care Encounter Source Date/Time Date/Time Type Type Clinicians Facility Department ID 2021-04-14 Emergency [facility] [id number] Univers 05:36:15 ity of [facility] 2021-04-13 Emergency [facility] [id number] Univers 19:11:52 ity of [facility] 2021-04-13 Emergency [facility] [id number] Univers 07:22:27 ity of [facility] 2021-04-13 Emergency [facility] [id number] Univers 04:07:45 ity of [facility] 2021-04-12 Emergency [facility] [id number] Univers 16:56:52 ity of [facility] 2021-04-12 Emergency [facility] [id number] Univers 08:32:00 ity of [facility] 2021-04-12 Emergency [facility] [id number] Univers 06:29:54 ity of [facility] 2021-04-11 Emergency [facility] [id number] Univers 22:42:20 ity of [facility] 2021-04-10 Emergency [facility] [id number] Univers 16:12:53 ity of [facility] 2021-04-10 Emergency [facility] [id number] Univers 14:48:53 ity of [facility] 2021-04-10 Emergency [facility] [id number] Univers 02:01:13 ity of [facility] 2023-06-29 2023-06-29 Outpatient R HAMLET [facility] [id number] Univers 13:00:00 13:00:00 LEANNE ity of [facility] 2023-03-16 2023-03-16 Outpatient R EDDIE BOYER [facility] [id number] Univers 11:30:00 11:30:00 EDDIE BOYER ity of [facility] 2023-03-05 2023-03-05 Outpatient R EDDIE BOYER [facility] [id number] Univers 20:00:00 20:00:00 EDDIE BOYER ity of [facility] 2023-02-17 2023-02-17 Outpatient R GLENNA [facility] [id number] Univers 13:45:00 13:45:[address] [facility] 2023-02-10 2023-02-10 Outpatient R GLENNA [facility] [id number] Univers 14:45:00 14:45:[address] [facility] 2023-02-09 2023-02-09 Outpatient R JUANA [facility] [id number] Univers 11:14:42 23:59:00 , MINI it y of [facility] 2023-02-09 2023-02-09 [facility] 1.2.840.114 [id number] Univers 11:00:00 23:59:00 Encounter , Mini IRINEO 350.1.13.10 ity of Juan [place] 4.2.7.2.686 [place] [phone] [address] 2023-01-28 2023-01-28 Refill [facility] 1.2.840.114 10 [id number] Univers 00:00:00 00:00:00 , Mini CHRISTIAN 350.1.13.10 ity of [place] 4.2.7.2.686 [place]au as SHEA?BLEA [id number] [place] ashishberenice [facility] 044 [facility] OFFICE BUILDING 2023-01-27 2023-01-27 [facility] 1.2.840.114 [id number] Univers 12:00:00 12:30:00 Visit [facility] 350.1.13.10 it y of [place] 4.2.7.2.686 [facility] [phone] [facility] [address] OFFICE BUILDING 2023-01-27 2023-01-27 Outpatient R HAMLET [facility] [id number] Univers 12:00:00 12:00:[address] [facility] 2023-01-17 2023-01-17 Outpatient R SHERRIE MACARIO [facility] [id number] Univers 13:40:00 15:06:[address] [facility] 2023-01-17 2023-01-17 Office Debora [facility] 1.2.840.114 [id number] Univers 13:40:00 15:06:37 Visit [facility] 350.1.13.10 ity of [place] 4.2.7.2.686 Mau as SHEA?BLEA [id number] [address] MEDICAL OFFICE BUILDING 2023-01-17 2023-01-17 Orders Doctor MYNOR 1.2.840.114 [id number] Univers 00:00:00 00:00:00 Only Unassigned, LEO 350.1.13.10 [facility] 4.2.7.2.686 Mau as [id number] [address] 2023-01-14 2023-01-14 Outpatient R [facility] [id number] Univers 09:00:00 09:00:00 ity of [facility] 2023-01-03 2023-01-03 Office Virginia Morgan [facility] 1.2.840.114 [id number] Univers 15:00:00 16:00:00 Visit Clinic, Speech Voice/Swallow FRANCISCO 350.1.13.10 ity of [facility] 4.2.7.2.686 [place] [id number] [facility] [address] 2023-01-03 2023-01-03 Outpatient R VIRGINIA MROGAN [facility] [id number] Univers 15:00:00 15:00:00 VIRGINIA MORGAN of [facility] 2022-12-28 2022-12-28 Outpatient R JUANA [facility] [id number] Univers 14:40:00 15:17:27 , MINI it y of [facility] 2022-12-28 2022-12-28 Office [facility] 1.2.840.114 [id number] Univers 14:40:00 15:17:27 [facility] 350.1.13.10 ity of [place] 4.2.7.2.686 Mau as SHEA?BLEA [id number] [address] MEDICAL OFFICE [facility] 2022-12-22 2022-12-22 Outpatient R JUANA [facility] [id number] Univers 13:20:00 13:20:00 , MINI it y of [facility] 2022-11-27 2022-11-28 Emergency E JAIMARAMARILUZ MHBL MHBL 7500 MHBL 21:03:00 01:30:00 , AGUSTO 2022-11-16 2022-11-16 System Auditor Fan, Adc Lab Main [facility] 1.2.8 40.114 [id number] Univers 15:30:00 15:45:00 Visit Alisa Malone 350.1.13.10 ity of [place] 4.2.7.2.686 [place] [phone] [place] dical [place] [address] Branch BUILDING 2022-11-16 2022-11-16 Outpatient R BHUPINDER [facility] [id number] Univers 15:30:00 15:30:[address] [facility] 2022-11-16 2022-11-16 Orders Doctor MYNOR 1.2.840.114 [id number] Univers 00:00:00 00:00:00 Only Unassigned, LEO 350.1.13.10 ity of [place] [facility] 4.2.7.2.686 Mau as [id number] [address] 2022-11-11 2022-11-11 Outpatient R GLENNA [facility] [id number] Univers 15:15:00 15:09:34 MICHAEL ity of [facility] 2022-11-02 2022-11-02 Outpatient R [facility] ERT [id number] Univers 15:20:00 15:52:24 , MINI it y of [facility] 2022-11-02 2022-11-02 Outpatient R JUANA [facility] [id number] Univers 15:20:00 15:52:24 , MINI it y of [facility] 2022-11-02 2022-11-02 Office [facility] 1.2.840.114 [id number] Univers 15:20:00 15:52:24 Visit , Mini CHRISTIAN 350.1.13.10 ity of [place] 4.2.7.2.686 Mau as SHEA?BLEA [id number] Tx dical KNEY [address] [place] [address] MEDICAL OFFICE BUILDING 2022-11-02 2022-11-02 Emergency Nakia, [facility] 1.2.840.114 [id number] Univers 05:07:00 09:42:00 Chang CABELL[place] 350.1.13.10 i ty [facility] 4.2.7.2.686 [place] [facility] [phone] [facility] [address] 2022-10-28 2022-10-28 Outpatient [facility]al [facility] [id number] Univers 08:45:19 23:59:[address] [facility] 2022-10-28 2022-10-28 Nurse MYNOR Albarado 1.2.840.114 [id number] Univers 00:00:00 00:00:00 Triage Luiz BAILEY 350.1.13.10 ity of [address]686 [place]au as [phone] [facility] [address] 2022-10-25 2022-10-25 Outpatient [facility] [id number] Univers 06:59:00 14:45:00 MICHAEL ity of [facility] 2022-10-25 2022-10-25 Hospital Glenna MEME 1.2.840.114 [id number] Univers 06:59:00 14:45:00 Encounter Michael DEANY 350.1.13.10 ity of [address]686 [place]au as [phone] [facility] [address] 2022-10-25 2022-10-25 Surgery Glenna MEME 1.2.840.114 [id number] Univers 09:00:00 11:27:00 Michael BAILEY 350.1.13.10 it y of [address]686 [place]au as [id number] [facility] [address] 2022-10-25 2022-10-25 Orders Doctor MYNOR 1.2.840.114 [id number] Univers 00:00:00 00:00:00 Only Unassigned, LEO 350.1.13.10 ity of [place] [address]686 Mau as [phone] [facility] [address] 2022-10-14 2022-10-14 [facility] 1.2.840.420 [id number] Univers 00:00:00 00:00:00 Diana HEALTH 350.1.13.10 it y of [place] 4.2.7.2.686 Amu as SHEA?BLEA [id number] [address] OFFICE [facility] 2022-10-07 2022-10-07 Patient Alida [facility] 1.2.840.114 [id number] Univers 00:00:00 00:00:00 Secure Msg Anju HEALTH 350.1.13.10 ity of [place] 4.2.7.2.686 Mau as SHEA?BLEA [id number] [address] OFFICE [facility] 2022-10-05 2022-10-05 Office [facility] 1.2.681.136 [id number] Univers 13:30:00 14:00:00 Visit Eddie Buckley [facility] 350.1.13.10 ity of [place] 4.2.7.2.686 [place] [id number] [facility] AND JACINTA [address] [place] [address] [facility] 2022-10-05 2022-10-05 Outpatient R EDDIE BOYER [facility] [id number] Univers 13:30:00 13:30:00 EDDIE BOYER ity of [facility] 2022-10-05 2022-10-05 Telephone [facility] 1.2.470.514 [id number] Univers 00:00:00 00:00:00 Diana HEALTH 350.1.13.10 it y of [place] 4.2.7.2.686 [place] as SHEA?BLEA [phone] T[place] ashish[address] OFFICE [facility] 2022-10-04 2022-10-04 Office [facility] 1.2.840.114 [id number] Univers 11:00:00 11:30:00 Visit Anju HEALTH 350.1.13.10 it y of [place] 4.2.7.2.686 Mau as SHEA?BLEA [phone] [address] OFFICE [facility] 2022-10-04 2022-10-04 Out[facility] [id number] Univers 11:00:00 11:00:[address] [facility] 2022-10-04 2022-10-04 Telephone [facility] 1.2.231.548 [id number] Univers 00:00:00 00:00:00 Diana [facility] 350.1.13.10 it y of [place] 4.2.7.2.686 Mau as SHEA?BLEA [id number] Tx dical KNEY 044 [facility] OFFICE [facility] 2022-09-30 2022-09-30 Outpatient R [facility] [id number] Univers 09:39:49 23:59:[address] [facility] 2022-09-30 2022-09-30 [facility] 1.2.840.114 [id number] Univers 09:30:00 23:59:00 Encounter Segundo Jackman HEALTH 350.1.13.10 ity of [facility] 4.2.7.2.686 [place] [id number] [facility] [address] 2022-09-30 2022-09-30 Ancillary Swallows, Gal Speech Modifie d Barium [facility] 1.2.840.114 [id number] Univers 09:30:00 15:41:20 Visit Alexandra Nevarez 350.1.13.10 ity of [facility] 4.2.7.2.686 Amu as BANK [phone] [facility] BLDG. [address] 2022-09-29 2022-09-29 Outpatient [facility] [id number] Univers 10:00:00 10:22:[address] [facility] 2022-09-29 2022-09-29 Office [facility] 1.2.840.114 [id number] Univers 10:00:00 10:22:07 Visit Herlinda CABELLO 350.1.13.10 i ty of [place] 4.2.7.2.686 [place] [phone] Tx dicberenice NAL 059 [facility] 2022-09-27 2022-09-27 Outpatient [facility] [id number] Univers 11:30:00 12:30:[address] [facility] 2022-09-27 2022-09-27 Office Pipes, [facility] 1.2.840.114 [id number] Univers 11:30:00 12:00:00 Visit Leanne CHRISTIAN 350.1.13.10 it y of [place] 4.2.7.2.686 [place] [id number] [facility] [address] OFFICE BUILDING 2022-09-27 2022-09-27 Patient Sandeep [facility] 1.2.840.114 [id number] Univers 00:00:00 00:00:00 Secure Msg Diana HEALTH 350.1.13.10 ity of [place] 4.2.7.2.686 Mau as SHEA?BLEA [phone] Tx ashishberenice BONILLA 044 [facility] OFFICE BUILDING 2022-09-21 2022-09-21 Office [facility] 1.2.840.114 [id number] Univers 10:15:00 10:45:00 Visit Segundo SINGH 350.1.13.10 i ty of [place].7.2.686 [place] [id number] [address] 2022-09-21 2022-09-21 Outpatient R JASWANT [facility] [id number] Univers 10:15:00 10:15:[address] [facility] 2022-09-20 2022-09-20 System Auditor Lab, Ang - Db [facility] 1.2.840.1 14 [id number] Univers 11:15:00 11:30:00 Visit Diana Hopkins 350.1.13.10 ity of [place] 4.2.7.2.686 Mau as SHEA?BLEA [id number] Tx ashishberenice HARDYMIKE 353 [facility] OFFICE BUILDING 2022-09-20 2022-09-20 Outpatient R MALAIKADee [facility] [id number] Univers 10:30:00 11:07:[address] [facility] 2022-09-20 2022-09-20 Office Sandeep [facility] 1.2.840.114 [id number] Univers 10:30:00 11:07:20 Visit Diana CHRISTIAN 350.1.13.10 it y of [place] 4.2.7.2.686 Mau as SHEA?BLEA [phone] Me dical KNEY [address] MEDICAL OFFICE BUILDING 2022-09-20 2022-09-20 Orders Doctor MYNOR 1.2.840.114 [id number] Univers 00:00:00 00:00:00 Only Unassigned, LEO 350.1.13.10 ity of [place] [facility] 4.2.7.2.686 Mau as [phone] [address] 2022-09-08 2022-09-08 Telephone [facility] 1.2.558.550 [id number] Univers 00:00:00 00:00:00 Herlinda Perez [facility] 350.1.13.10 it y of [place] 4.2.7.2.686 [place] [id number] [facility] [address] OFFICE [facility] 2022-09-07 2022-09-07 Outpatient Nirmal CORONEL [facility] [id number] Univers 12:36:14 23:59:00 [facility] 2022-08-18 2022-08-18 System Auditor Fan, Adc Lab Main [facility] 1.2.8 40.114 [id number] Univers 09:15:00 09:30:00 Visit Manpreet Judd 350.1.13.10 ity [facility] 4.2.7.2.686 [place] [id number] Tx dical NAL 353 [facility] 2022-08-18 2022-08-18 Outpatient R MANPREET JUDD [facility] [id number] Univers 09:15:00 09:15:00 ity of [facility] 2022-08-12 2022-08-12 Outpatient Nirmal HUGGINS [facility] [id number] Univers 15:30:00 15:53:[address] [facility] 2022-08-12 2022-08-12 Orders Doctor BANKS 1.2.840.114 [id number] Univers 00:00:00 00:00:00 Only Unassigned, LEO 350.1.13.10 ity of [place] [facility] 4.2.7.2.686 Mau as [id number] [address] 2022-08-03 2022-08-03 Outpatient R LESLIE [facility] [id number] Univers 07:40:03 23:59:[address] [facility] 2022-08-02 2022-08-02 [facility] [id number] Univers 16:20:00 16:20:[address] [facility] 2022-08-02 2022-08-02 Outpatient [facility] [id number] Univers 08:40:00 09:31:[address] [facility] 2022-08-02 2022-08-02 Office [facility] [place] [facility] 1.2.840.114 [id number] Univers 08:40:00 09:31:52 Visit Herlinda CABELLO 350.1.13.10 i ty of [place] 4.2.7.2.686 [place] [phone] Tx tania YUNG [address] [place] [address] 2022-07-27 2022-07-27 Outpatient [facility] [id number] Univers 11:20:00 11:20:00 HERLINDA [facility] 2022-07-23 2022-07-23 Telephone [facility] 1.2.614.060 [id number] Univers 00:00:00 00:00:00 [facility] 350.1.13.10 it y of [place] 4.2.7.2.686 Mau as SEHA?BLEA [phone] Tx tania DASH[address] OFFICE [facility] 2022-07-22 2022-07-22 Telephone [facility] 1.2.643.212 [id number] Univers 00:00:00 00:00:00 Danitza [facility] 350.1.13.10 ity of [place] 4.2.7.2.686 [place] [id number] Tx tania NAL [address] [place] [address] 2022-07-21 2022-07-21 Outpatient R [facility] [id number] Univers 15:30:00 16:12:28 DIANA [facility] 2022-07-21 2022-07-21 Office [facility] 1.2.840.114 [id number] Univers 15:30:00 16:12:28 Visit Diana HEALTH 350.1.13.10 it y of [place] 4.2.7.2.686 Mau as SHEA?BLEA [id number] [address] OFFICE BUILDING 2022-07-19 2022-07-19 Outpatient R SANDEEP [facility] [id number] Univers 09:30:00 09:30:00 DIANA ity of [facility] 2022-07-15 2022-07-15 Telephone Sousa, JUAN DIEGO 1.2.874.800 [id number] Univers 00:00:00 00:00:00 Gianna VAZQUEZ 350.1.13.10 i ty of [place] 4.2.7.2.686 [place] [id number] [address] 2022-06-18 2022-06-18 Patient Sandeep [facility] 1.2.840.114 [id number] Univers 00:00:00 00:00:00 Secure Msg [employer] 350.1.13.10 ity of [place] 4.2.7.2.686 Mau as SHEA?BLEA [id number] [address] OFFICE [facility] 2022-06-01 2022-06-01 Orders Doctor MYNOR 1.2.840.114 [id number] Univers 00:00:00 00:00:00 Only Unassigned, LEO 350.1.13.10 ity of [place] [facility] 4.2.7.2.686 Mau as [id number] [address] 2022-05-31 2022-05-31 Telephone Pipes, [facility] 1.2.189.561 [id number] Univers 00:00:00 00:00:00 Leanne HEALTH 350.1.13.10 it y of [place] 4.2.7.2.686 [place] [id number] [address] OFFICE BUILDING 2022-05-27 2022-05-27 Office Pipes, [facility] 1.2.840.114 [id number] Univers 15:30:00 16:00:00 Visit Leanne HEALTH 350.1.13.10 it y of [place] 4.2.7.2.686 [place] [id number] [address] OFFICE [facility] 2022-05-27 2022-05-27 Outpatient R HAMLET [facility] [id number] Univers 15:30:00 15:30:[address] [facility] 2022-05-24 2022-05-24 Telephone [facility] 1.2.400.892 [id number] Univers 00:00:00 00:00:00 Leanne CHRISTIAN 350.1.13.10 it y of [place] 4.2.7.2.686 [place] [id number] [address] OFFICE [facility] 2022-05-18 2022-05-18 Outpatient R SANDEEP [facility] [id number] Univers 13:00:25 23:59:[address] [facility] 2022-05-18 2022-05-18 Hospital [facility] 1.2.840.114 [id number] Univers 13:00:00 23:59:00 Encounter Diana REDMONDCRISTAL 350.1.13.10 ity of [place] 4.2.7.2.686 [place] [id number] [address] 2022-05-18 2022-05-18 Telephone [facility] 1.2.524.280 [id number] Univers 00:00:00 00:00:00 Diana CHRISTIAN 350.1.13.10 it y of [place] 4.2.7.2.686 Mau as SHEA?BLEA [id number] Tx tania BONILLA [address] [place] [address] OFFICE [facility] 2022-05-17 2022-05-17 Outpatient R SANDEEP [facility] [id number] Univers 11:45:00 23:59:[address] [facility] 2022-05-17 2022-05-17 Outpatient R SANDEEP [facility] [id number] Univers 15:30:00 15:30:[address] [facility] 2022-05-17 2022-05-17 Office [facility] 1.2.840.114 [id number] Univers 11:00:00 11:46:11 Visit Diana Wongnai 350.1.13.10 it y of [place] 4.2.7.2.686 Mau as SHEA?BLEA [id number] Tx ashishmo HARDY [address] MEDICAL OFFICE [facility] 2022-04-15 2022-04-15 Emergency Amaurisukumar, [facility] 1.2.071.049 [id number] Univers 13:52:00 16:33:00 Chandler CABELLO 350.1.13.10 i ty of [place] 4.2.7.2.686 [place] [id number] [facility] [address] 2022-04-15 2022-04-15 Outpatient R VAMSI, [facility] [id number] Univers 13:00:00 14:26:[address] [facility] 2022-04-15 2022-04-15 Outpatient R VAMSI, [facility] ERT [id number] Univers 13:00:00 14:26:35 SAKINA [facility] 2022-04-15 2022-04-15 [facility] 1.2.840.114 [id number] Univers 13:00:00 14:26:35 Visit Sakina CHRISTIAN 350.1.13.10 i ty of [place] 4.2.7.2.686 Mau as SHEA?BLEA [id number] [address] OFFICE [facility] 2022-04-12 2022-04-12 Outpatient R HAMLET, [facility] [id number] Univers 16:00:00 16:00:[address] [facility] 2022-04-12 2022-04-12 Telephone [facility] 1.2.016.749 [id number] Univers 00:00:00 00:00:00 Danitza CABELLO 350.1.13.10 ity of [place] 4.2.7.2.686 [place] [facility] [id number] Tx ashishberenice [facility] 059 [facility] 2022-04-07 2022-04-07 Telephone [facility] [id number] Univers 00:00:00 00:00:00 Danitza CABELLO 350.1.13.10 [place] [id number] [place] dical NAL 059 [facility] 2022-04-06 2022-04-06 Outpatient R HAMLET, [facility] [id number] Univers 11:00:00 11:00:00 LEANNE ity of [facility] 2022-03-23 2022-03-23 Orders Doctor MYNOR 1.2.840.114 [id number] Univers 00:00:00 00:00:00 Only Unassigned, LEO 350.1.13.10 ity of [place] [facility] 4.2.7.2.686 [place] as [id number] [address] 2022-03-17 2022-03-17 [place] [facility] [id number] Univers 00:00:00 00:00:00 Qiaserafin [facility] 350.1.13.10 ity [facility] [place] [id number] [place] dicmo NAL 9 [facility] 2022-03-12 2022-03-12 Outpatient R JOAQUINA, [facility] [id number] Univers 14:50:14 23:59:00 [facility] 2022-03-12 2022-03-12 Outpatient R JOAQUINA, [facility] [id number] Univers 15:00:00 15:00:00 [facility] lloydy o [facility] 2022-03-12 2022-03-12 Outpatient R [facility], [facility] [id number] Univers 15:00:00 15:00:00 [facility] gabinoy o [facility] 2022-03-12 2022-03-12 Imm/Inj Nurse, Mitul Bush [facility] 1.2.840.114 [id number] Univers 09:20:00 09:40:00 Visit CherieLucian dupree [facility] 350.1.13.10 ity of [place] 4.2.7.2.686 [place] SHEA?BLEA [phone] [place] dical HARDYEY 044 [facility] OFFICE [facility] 2022-03-12 2022-03-12 Office Mason [facility] 1.2.840.114 [id number] Univers 08:30:00 09:00:00 Visit Albert CHRISTIAN 350.1.13.10 it y of [facility] 4.2.7.2.686 [place] SHEA?BLEA [phone] [place] tania BONILLA [address] [employer] [facility] 2022-03-10 2022-03-10 Outpatient R SANDEEP [facility] [id number] Univers 15:00:00 15:58:[address] [facility] 2022-03-10 2022-03-10 Office Sandeep [facility] 1.2.840.114 [id number] Univers 15:00:00 15:58:31 Visit Diana CHRISTIAN 350.1.13.10 it y of [facility] 4.2.7.2.686 [place] SHEA?BLEA [phone] [place] tania DASH [address] [employer] MEDICAL OFFICE [facility] 2022-03-09 2022-03-09 Laboratory Only, Adc Test [facility] 1.2.840. 114 [id number] Univers 07:30:00 07:45:00 Only Danitza Connors [place] 350.1.13.10 ity [facility] 4.2.7.2.686 [facility] [id number] [address] 2022-03-09 2022-03-09 Outpatient R [facility] [id number] Univers 07:30:00 07:30:[address] [facility] 2022-03-09 2022-03-09 Outpatient R [facility] [id number] Univers 07:30:00 07:30:[address] [facility] 2022-03-09 2022-03-09 Outpatient R JOAQUINA, [facility] [id number] Univers 07:30:00 07:30:00 DANITZA tyler o f [facility] 2022-03-06 2022-03-06 Outpatient R TYESHA [facility] [id number] Univers 13:50:00 13:50:00 [facility] 2022-03-04 Outpatient R ALIRIO, [facility] [id number] Univers 14:30:00 15:40:13 [facility] 2022-03-042022-03-04 Office [facility] 1.2.840.114 [id number] Univers 14:30:00 15:40:13 Visit Alice Sam [facility] 350.1.13.10 i ty of [place] [id number] [facility] [address] 2022-03-04 2022-03-04 [facility] [id number] Univers 14:30:00 14:30:00 ALICE ity of [facility] 2022-03-04 2022-03-04 Orders Doctor MYNOR 1.2.840.114 [id number] Univers 00:00:00 00:00:00 Only Unassigned, LEO 350.1.13.10 ity [facility] 4.2.7.2.686 Mau as [id number] [facility] 00[address] [place] 2022-03-04 2022-03-04 Telephone [facility] 1.2.430.885 [id number] Univers 00:00:00 00:00:00 Danitza CABELLO 350.1.13.10 ity of [place] 4.2.[place].2.[place] [id number] Tx dical NAL [address] [place] [address] 2022-02-23 2022-02-23 Outpatient R [facility] [id number] Univers 10:00:00 10:13:55 DANITZA tyler o f [facility] 2022-02-23 2022-02-23 Office [facility] 1.2.840.114 [id number] Univers 10:00:00 10:13:55 Visit Danitza CABELLO 350.1.13.10 ity of [place] 4.2.7.2.686 [place] [phone] Tx dical NAL [address] [place] [address] 2022-02-23 2022-02-23 Outpatient R [facility] [id number] Univers 10:00:00 10:13:55 DANITZA lloydy o f [facility] 2022-02-23 2022-02-23 Outpatient R [facility] [id number] Univers 10:00:00 10:13:55 DANITZA tyler o f [facility] 2022-02-21 2022-02-21 Emergency X ROHIT JUARES [facility] ERT [id number] Univers 01:50:00 04:03:[address] [facility] 2022-02-21 2022-02-21 Emergency Nereyda [facility] 1.2.171.573 [id number] Univers 01:50:00 04:03:00 Rohit CABELLO 350.1.13.10 i ty [facility] 4.2.7.2.686 [place] [facility] [phone] [facility] 0[address] 2022-02-21 2022-02-21 Emergency X ROHIT JUARES [facility] ERT 1 [id number] Univers 01:50:00 04:03:[address] [facility] 2022-02-21 2022-02-21 Emergency ROHIT KUMAR [facility] ERT 1 [id number] Univers 01:50:00 04:03:[address] [facility] 2022-01-22 2022-01-22 Telephone [facility] 1.2.959.314 [id number] Univers 00:00:00 00:00:00 Jolanta CABELLO 350.1.13.10 ity of [place] 4.2.7.2.686 [facility] [id number] Tx dical NAL 059 Branch [facility] 2022-01-04 2022-01-04 System Auditor Draw, Clc-Bls Lab [facility] 1.2.8 40.114 [id number] Univers 14:45:00 15:00:00 [facility], [facility] 350.1.13.10 ity of [place] 4.2.7.2.686 [place] [id number] [facility] [address] OFFICE BUILDING 2022-01-04 2022-01-04 Outpatient R [facility] [id number] Univers 14:45:00 14:45:00 [facility] 2022-01-04 2022-01-04 Office Pip, [facility] 1.2.840.114 [id number] Univers 13:30:00 14:00:00 Visit [facility] 350.1.13.10 it y of [place] 4.2.7.2.686 [place] [id number] [address] OFFICE BUILDING 2022-01-04 2022-01-04 Outpatient R HAMLET, [facility] [id number] Univers 13:30:00 13:30:00 LEANNE [facility] 2022-01-01 2022-01-01 Emergency X [facility] ERT [id number] Univers 13:41:00 16:08:[address] [facility] 2022-01-01 2022-01-01 Emergency [facility] 1.2.618.890 [id number] Univers 13:41:00 16:08:00 Sheyla CABELLO 350.1.13.10 ity of [place] 4.2.7.2.686 [place] [id number] [address] 2022-01-01 2022-01-01 Emergency X [facility] ERT [id number] Univers 13:41:00 16:08:00 SHEYLA [facility] 2022-01-01 2022-01-01 Telephone [facility] 1.2.008.405 [id number] Univers 00:00:00 00:00:00 Danitza CABELLO 350.1.13.10 ity of [place] 4.2.7.2.686 [place] [id number] Tx dical NAL 9 [facility] 2022-01-01 2022-01-01 Case [facility] 1.2.840.114 [id number] Univers 00:00:00 00:00:00 Management Jolanta CABELLO 350.1.13.10 ity [facility] 4.2.7.2.686 [place] [phone] Tx dical NAL 9 [facility] 2021-12-29 2021-12-29 Emergency EM Nikita [facility] [id number] [facility] 13:32:00 21:02:00 Elizabeth [facility] 2021-12-29 2021-12-29 Emergency EM NikitaFORMERLY [facility] [id number] [facility] 13:32:00 21:02:00 Elizabeth [id number] [facility] 2021-12-28 2021-12-28 Ancillary Shahnaz Ramos [facility] 1.2.84 0.114 [id number] Univers 14:30:00 15:15:00 Visit Karli Tuttle 350.1.13.10 ity [facility] 4.2.7.2.686 [facility] [id number] Tx dical NAL 179 [facility] 2021-12-26 2021-12-26 Emergency X [facility] E[facility] [id number] Univers 16:19:00 19:13:[address] [facility] 2021-12-26 2021-12-26 [facility] 1.2.924.936 [id number] Univers 16:19:00 19:13:00 Travis CABELLO 350.1.13.10 ity of [place] 4.2.7.2.686 [facility] [phone] [facility] [address] [place] 2021-12-23 2021-12-23 Outpatient [facility] [id number] Univers 11:00:00 11:40:[address] [facility] 2021-12-23 2021-12-23 Ancillary Shahnaz Ramos [facility] 1.2.84 0.114 [id number] Univers 11:00:00 11:40:19 Visit Karli Tuttle 350.1.13.10 ity of [place] 4.2.7.2.686 [facility] [place] [phone] Tx dical NAL 179 [facility] 2021-12-23 2021-12-23 Outpatient R MARRY [facility] [id number] Univers 11:00:00 11:40:[address] [facility] 2021-12-21 2021-12-21 Ancillary Shahnaz Ramos [facility] 1.2.84 0.114 [id number] Univers 11:00:00 11:40:13 Visit Karli Tuttle 350.1.13.10 ity of [place] 4.2.7.2.686 [place] [id number] Tx dical NAL [address] [facility] 2021-12-13 2021-12-13 Emergency X RIDDLE, [facility] ERT [id number] Univers 11:06:00 12:07:00 CHRISTNARENDRAER it y of [facility] 2021-12-13 2021-12-13 Emergency Dalton, [facility] 1.2.109.919 [id number] Univers 11:06:00 12:07:00 Abigail CABELLO 350.1.13.10 ity [facility] 4.2.7.2.686 [place] [id number] [id number] 2021-12-08 2021-12-08 Outpatient R MARRY [facility] [id number] Univers 15:15:00 16:25:[address] [facility] 2021-12-08 2021-12-08 Ancillary Shahnaz Ramos [facility] 1.2.84 0.114 [id number] Univers 15:15:00 16:25:41 Visit Karli Tuttle 350.1.13.10 ity [facility] 4.2.7.2.686 [place] [id number] Tx dical NAL 179 [facility] 2021-12-08 2021-12-08 Outpatient R MARRY [facility] [id number] Univers 15:15:00 16:25:[address] [facility] 2021-11-25 2021-11-25 Office Pip, [facility] 1.2.840.114 [id number] Univers 13:00:00 13:30:00 Visit Leanne Wongnai 350.1.13.10 it y of [place] 4.2.7.2.686 [place] [id number] [facility] [address] [place] OFFICE BUILDING 2021-11-25 2021-11-25 Outpatient R PIPES, [facility] [id number] Univers 13:00:00 13:00:00 [facility] ity [facility] 2021-11-25 2021-11-25 Outpatient R PIPES, [facility] [id number] Univers 13:00:00 13:00:[address] [facility] 2021-11-19 2021-11-19 Emergency [facility] [id number] Univers 07:57:00 11:43:[address] [facility] 2021-11-19 2021-11-19 Emergency [facility] 1.2.828.948 [id number] Univers 07:57:00 11:43:00 Alexandra CABELLO 350.1.13.10 i ty of [place] 4.2.7.2.686 [place] C[place] [id number] [facility] [address] [place] 2021-11-19 2021-11-19 Emergency X [facility] ERT [id number] Univers 07:57:00 11:43:[address] [facility] 2021-10-02 2021-10-02 [facility] [id number] Univers 15:15:00 15:15:[address] [facility] 2021-10-02 2021-10-02 Outpatient [facility] [id number] Univers 15:15:00 15:15:[address] [facility] 2021-10-02 2021-10-02 Outpatient [facility] [id number] Univers 15:15:00 15:15:00 [facility] 2021-09-29 2021-09-29 Ancillary Randa Shelton [facility] 1.2.840 .114 [id number] Univers 09:30:00 10:30:00 Visit Karli Tuttle 350.1.13.10 ity of [place] 4.2.7.2.686 [place] [facility] [id number] Tx dical NAL 179 [facility] 2021-09-24 2021-09-24 Orders Doctor MYNOR 1.2.840.114 [id number] Univers 00:00:00 00:00:00 Only Unassigned, LEO 350.1.13.10 ity of [place] [facility] 4.2.7.2.686 Mau as [id number] [facility] 009 Branch 2021-09-21 2021-09-21 Office Pipes, [facility] 1.2.840.114 [id number] Univers 10:30:00 11:00:00 Visit [facility] 350.1.13.10 it y of [place] 4[place]2.7.2.686 [place] [id number] [address] OFFICE BUILDING 2021-09-21 2021-09-21 Outpatient R PIPES, [facility] [id number] Univers 10:30:00 10:30:00 [facility] ity [facility] 2021-09-15 2021-09-15 Outpatient R PIPES, [facility] [id number] Univers 13:04:54 23:59:00 [facility] ity [facility] 2021-09-15 2021-09-15 Hospital Pip, [facility] 1.2.840.114 [id number] Univers 13:04:54 23:59:00 Encounter Leanne [facility] 350.1.13.10 it[place] of [place] 4.2.7.2.686 [place] [id number] [facility] [address] [place] 2021-09-15 2021-09-15 Outpatient R MARRY, [facility] [id number] Univers 09:15:00 11:45:[address] [facility] 2021-09-15 2021-09-15 Ancillary Nichole Hassan [facility] 1.2.840. 114 [id number] Univers 09:15:00 11:45:08 Visit Karli Tuttle [place] 350.1.13.10 ity of [place] 4.2.7.2.686 [place] [phone] Tx dical NAL [address] [facility] 2021-09-08 2021-09-08 Office Pipes, [facility] 1.2.840.114 [id number] Univers 15:30:00 16:13:09 Visit [facility] 350.1.13.10 it y of [place] 4.2.7.2.686 [place] [id number] [place] 963302 [place] OFFICE BUILDING 2021-09-08 2021-09-08 Outpatient R PIPES, [facility] [id number] Univers 15:30:00 16:13:[address] [facility] 2021-09-08 2021-09-08 Outpatient R HAMLET, [facility] [id number] Univers 15:30:00 16:13:[address] [facility] 2021-09-08 2021-09-08 Outpatient R HAMLET, [facility] [id number] Univers 15:30:00 15:30:[address] [facility] 2021-09-08 2021-09-08 Outpatient R HAMLET, [facility] [id number] Univers 11:30:00 11:30:[id number] [facility] 2021-08-31 2021-08-31 Outpatient R NATAN CRESPOED [facility] [id number] Univers 13:00:00 17:05:[address] [facility] 2021-08-31 2021-08-31 [facility] 1.2.840.114 [id number] Univers 13:00:00 17:05:09 Visit [facility] 350.1.13.10 it y of [facility] 4.2.7.2.686 [facility] [phone] Med ical [place] 044 [address] CLINIC 2021-08-31 2021-08-31 Outpatient R LUCIAN CRESPO [facility] [id number] Univers 13:00:00 17:05:[address] [facility] 2021-08-29 2021-08-29 Emergency X Zan JACINTO [facility] ERT [id number] Univers 19:28:00 23:57:00 ity of [facility] 2021-08-29 2021-08-29 Emergency Zan Jacinto [facility] 1.2.840.114 [id number] Univers 19:28:00 23:57:00 Hannah CABELLO 350.1.13.10 i ty of [place] 4.2.7.2.686 [facility] [id number] [place] 517824 [place] 2021-08-29 2021-08-29 Emergency X Zan JACINTO [facility] ERT [id number] Univers 19:28:00 23:57:00 ity of [facility] 2021-08-29 2021-08-29 Emergency X Zan JACINTO [facility] ERT [id number] Univers 19:28:00 23:57:00 ity of [facility] 2021-08-15 2021-08-15 Emergency X JAVIER [facility] ERT [id number] Univers 07:01:00 08:35:00 [facility] 2021-08-15 2021-08-15 Emergency [facility] 1.2.386.485 [id number] Univers 07:01:00 08:35:00 Alexandra IRINEO 350.1.13.10 i ty of [place] 4.2.7.2.686 [facility] [id number] [facility] [address] [place] 2021-08-15 2021-08-15 Orders Doctor MYNOR 1.2.840.114 [id number] Univers 00:00:00 00:00:00 Only Unassigned, LEO 350.1.13.10 ity of [facility] 4.2.7.2.686 Mau [id number] [facility] [address] Branch 2021-07-28 2021-07-28 Outpatient Nirmal MCNULTY [facility] [id number] Univers 14:00:00 14:00:00 LEANNE [facility] 2021-07-08 2021-07-09 Emergency X [facility] ERT [id number] Univers 23:37:00 03:02:00 INA [facility] 2021-07-08 2021-07-09 Emergency [facility] 1.2.998.254 [id number] Univers 23:37:00 03:02:00 Ina CABELLO 350.1.13.10 i ty of [place] 4.2.7.2.686 [facility] [id number] [place] 517824 [place] 2021-06-07 2021 Inpatient RIVKA Colby [facility] [id number] [facility] 14:31:00 14:58:00 Bryant jacobson [facility] 2021-06-01 2021-06-01 Outpatient LUCIAN ARELLANO [facility] [id number] Univers 10:00:00 10:00:[address] [facility] 2021-06-01 2021-06-01 Outpatient LUCIAN ARELLANO [facility] [id number] Univers 10:00:00 10:00:00 ity of [facility] 2021-05-24 2021-05-25 Emergency X JUANJOSE [facility] ERT [id number] Univers 21:13:00 03:13:00 WALILLYLI ity of [facility] 2021-05-24 2021-05-25 Emergency [facility] 1.2.547.041 [id number] Univers 21:13:00 03:13:00 [facility]ien [facility] 350.1.13.10 [place] of [place] 4.2.7.2.[place] [id number] [facility] 084 Branch 2021-05-24 2021-05-24 Orders Doctor MYNOR 1.2.840.114 [id number] Univers 00:00:00 00:00:00 Only Unassigned, LEO 350.1.13.10 ity of [place] [facility] 4.2.7.2.686 Mau [id number] [facility] 009 Branch 2021-05-04 2021-05-06 Inpatient [facility] MEDI.01 BP00 [id number] [facility] 09:55:00 09:55:00 , Giuliano 03 [facility] 2021-05-01 2021-05-01 Telephone Pipes, [facility] 1.2.754.692 [id number] Univers 00:00:00 00:00:00 [facility] Wongnai 350.1.13.10 it y of [place] 4.2.7.2.686 [facility] [id number] [place] [id number] Branch OFFICE BUILDING 2021-04-30 2021-04-30 Outpatient [facility] 3DAY BP0 [id number] [facility] 00:00:00 23:59:00 , Giuliano 77 [facility] 2021-04-30 2021-04-30 Outpatient Nirmal VILLATORO [facility] [id number] Univers 13:15:00 13:56:[address] [facility] 2021-04-30 2021-04-30 Office [facility] 1.2.898.009 [id number] Univers 13:07:45 13:56:37 Visit Janneth CABELLO 350.1.13.10 i ty of [place] 4.2.7.2.686 [place] [id number] Tx dical NAL 188 [address] BUILDING 2021-04-30 2021-04-30 Outpatient R RAUL [facility] [id number] Univers 13:15:00 13:15:[address] [facility] 2021-04-27 2021-04-27 Office [facility] 1.2.840.114 [id number] Univers 13:06:36 13:36:36 Visit [facility] 350.1.13.10 it y of [place] 4.2.7.2.686 [place] [id number] [place] 963302 [place] OFFICE [facility] 2021-04-27 2021-04-27 Outpatient [facility] [id number] Univers 13:00:00 13:00:00 [facility] 2021-04-24 2021-04-24 [facility] Carlos Alberto [facility] 1.2.840.114 [id number] Univers 14:07:05 23:59:00 Encounter Gaby Y HEALTH 350.1.13.10 ity of [place] 4[place]2.[place].2.[place] [id number] [address] 2021-04-24 2021-04-24 Outpatient R [facility] [id number] Univers 14:06:52 14:06:[address] [facility] 2021-04-24 2021-04-24 [facility] 1.2.840.114 [id number] Univers 14:06:52 14:06:52 Encounter Gaby Y HEALTH 350.1.13.10 ity of [place] 4.2.7.2.[place] [id number] [address] 2021-04-15 2021-04-15 Emergency X [facility] ERT [id number] Univers 12:57:00 16:07:00 [facility] 2021-04-15 2021-04-15 Emergency [facility] 1.2.208.291 [id number] Univers 12:57:00 16:07:00 Alexandra CAEBLLO 350.1.13.10 i ty of [place] 4.2.7.2.686 [facility] [id number] [address] 2021-04-15 2021-04-15 Telephone Renee Banks [facility] 1.2.840.114 [id number] Univers 00:00:00 00:00:00 Alvares HEALTH 350.1.13.10 it y of FAMILY 4.2.7.2.686 [facility] [id number] [facility] ical [place] [address] [place] [address] 2021-04-15 2021-04-15 Telephone Renee Banks [facility] 1.2.840.114 [id number] Univers 00:00:00 00:00:00 Alvares HEALTH 350.1.13.10 it y of FAMILY 4.2.7.2.686 [facility] [id number] [address] 2021-04-14 2021-04-14 Office Renee Banks [facility] 1.2.840.114 [id number] Univers 10:38:18 11:08:18 Visit Alvares HEALTH 350.1.13.10 it y of FAMILY 4.2.7.2.686 [facility] [id number] Med ica [place] [address] [place] [address] 2021-04-14 2021-04-14 Outpatient RENEE ESTEVEZ [facility] [id number] Univers 11:00:00 11:00:00 [facility] 2021-04-14 2021-04-14 Outpatient RENEE ESTEVEZ [facility] [id number] Univers 11:00:00 11:00:00 [facility] 2021-04-09 2021-04-09 Outpatient Nirmal VILLATORO [facility] [id number] Univers 09:00:00 09:00:00 JANNETH [facility] 2021-04-01 2021-04-01 Outpatient LUCIAN ARELLANO [facility] [id number] Univers 13:30:00 13:30:00 [facility] 2021-03-22 2021-03-23 Emergency X CHUCK [facility] [id number] Univers 21:39:00 01:59:[address] [facility] 2021-03-22 2021-03-23 Emergency [facility] ERT [id number] Univers 21:39:00 01:59:[address] [facility] 2021-03-22 2021-03-23 Emergency X [facility] ERT [id number] Univers 21:39:00 01:59:[address] [facility] 2021-03-22 2021-03-23 Emergency [facility] 1.2.019.756 [id number] Univers 21:39:00 01:59:00 Ina S [place] 350.1.13.10 i ty of [place] 4.2.7.2.686 [place] [id number] [facility] [address]84 [place] 2021-03-22 2021-03-22 Orders Doctor MYNOR 1.2.840.114 [id number] Univers 00:00:00 00:00:00 Only Unassigned, LEO 350.1.13.10 ity of [place] [facility] 4.2.7.2.686 Mau as [id number] [facility] 009 Branch 2021-03-17 2021-03-17 Urgent [facility] 1.2.840.114 [id number] Univers 20:34:07 20:52:59 Care [facility] 350.1.13.10 it y of [place] 4.2.7.2.686 Mau as Shea?Blea [id number] [address] Medical Office Building 2021-03-17 2021-03-17 Outpatient R CARLOS ALBERTO [facility] [id number] Univers 20:40:00 20:40:[address] [facility] 2021-03-02 2021-03-02 Outpatient R HAMLET [facility] [id number] Univers 16:30:00 16:30:[address] [facility] 2021-03-02 2021-03-02 Office Lucian Crespo [facility] [id number] Univers 15:14:52 15:54:52 Visit S HEALTH [id number] [id number] [facility] [phone] Med ical [place] [address] [facility] 2021-03-02 2021-03-02 [facility] [id number] Univers 13:18:08 13:48:08 Visit [facility] [id number] [id number] [phone] [facility] [address] Office Building 2021-02-11 2021-02-11 Outpatient Nirmal CORONEL [facility] [id number] Univers 13:00:00 13:00:00 SENDIL [facility] 2021-02-09 2021-02-10 [facility] [id number] Univers 19:31:00 01:06:00 Alexandra [place] [id number] i ty [place] [id number] [phone] [facility] [address] 2021-02-05 2021-02-05 Outpatient Nirmal TUTTLE [facility] [id number] Univers 11:00:00 11:00:00 [facility] 2021-01-29 2021-01-29 [facility] [id number] Univers 10:15:00 11:14:29 KARLI [facility] 2021-01-29 2021-01-29 [facility] [id number] Univers 10:15:00 11:14:29 KARLI [facility] 2021-01-23 2021-01-23 Outpatient Nirmal TUTTLE [facility] [id number] Univers 09:00:00 09:00:00 KARLI [facility] 2021-01-23 2021-01-23 [facility] [id number] Univers 09:00:00 09:00:00 KARLI [facility] 2021-01-20 2021-01-20 [facility] [id number] Univers 11:00:00 11:00:00 GABY [facility] 2021-01-19 2021-01-19 Outpatient R CORONEL [facility] [id number] Univers 13:30:00 13:30:00 SENDIL [facility] 2021-01-15 2021-01-15 Outpatient R [facility] [id number] Univers 10:15:00 10:15:00 [facility] 2021-01-06 2021-01-06 Outpatient R MARRY [facility] [id number] Univers 10:15:00 10:15:00 [facility] 2020-12-30 2020-12-30 Outpatient R MARRY [facility] [id number] Univers 09:00:00 09:00:00 [facility] 2020-12-23 2020-12-23 Outpatient R PALLAVI COMER [facility] [id number] Univers 09:45:00 09:45:00 [facility] 2020-12-11 2020-12-11 Outpatient R MARRY [facility] [id number] Univers 15:45:00 15:45:00 [facility] 2020-12-11 2020-12-11 Outpatient R MARRY [facility] [id number] Univers 15:00:00 15:00:00 [facility] 2020-12-10 2020-12-10 Outpatient R HIEU [facility] [id number] Univers 12:20:00 12:20:00 [facility] 2020-12-10 2020-12-10 Outpatient R HIEU [facility] [id number] Univers 12:20:00 11:53:33 [facility] 2020-12-09 2020-12-09 Outpatient R MARRY [facility] [id number] Univers 14:45:00 14:45:00 [facility] 2020-12-05 2020-12-05 Outpatient R HAMLET [facility] [id number] Univers 00:00:00 00:00:00 [facility] 2020-12-04 2020-12-04 Outpatient R MARRY [facility] [id number] Univers 10:00:00 13:56:58 [facility] 2020-12-04 2020-12-04 Outpatient R MARRY [facility] [id number] Univers 10:00:00 10:00:00 [facility] 2020-12-01 2020-12-01 Outpatient R LUCIAN CREPSO [facility] [id number] Univers 09:30:00 09:30:00 [facility] 2020-11-24 2020-11-24 Outpatient R HAMLET [facility] [id number] Univers 11:30:00 11:30:00 [facility] 2020-11-24 2020-11-24 Outpatient R BARTOLOMESUSSY [facility] [id number] Univers 11:00:00 11:00:00 [facility] 2020-11-20 2020-11-20 [facility] [id number] Univers 14:30:00 16:02:40 [facility] 2020-11-20 2020-11-20 Outpatient R [facility] [id number] Univers 14:30:00 14:30:00 [facility] 2020-11-19 2020-11-19 Outpatient R HIEU [facility] [id number] Univers 12:20:00 12:21:37 [facility] 2020-11-19 2020-11-19 Outpatient R HIEU [facility] [id number] Univers 12:20:00 12:20:00 [facility] 2020-11-19 2020-11-19 Outpatient R [facility] [id number] Univers 10:40:00 10:40:00 [facility] 2020-11-06 2020-11-06 [facility] [id number] Univers 13:00:00 13:00:00 [facility] 2020-10-28 2020-11-04 Inpatient [facility] [id number] [facility] 02:49:00 12:45:00 00 [facility] 2020-10-29 2020-10-29 Inpatient HCACR [facility] [id number] [facility] 21:50:40 21:50:40 00 Jean Carlos perez [facility] 2020-10-28 2020-10-28 Orders Doctor MYNOR [id number] 00:00:00 00:00:00 Only Unassigned, LEO 350.1.13.10 [place] [facility] 4.2.7.2.686 [id number] 2020-10-27 2020-10-27 Inpatient HCAPM HCAPM [id number] [facility] 22:18:01 22:18:01 40 [facility] 2020-10-21 2020-10-21 Outpatient R LUCIAN [facility] [id number] Univers 14:00:00 14:00:00 [facility] 2020-10-21 2020-10-21 Outpatient R LUCIAN [facility] [id number] Univers 09:45:00 09:45:00 [facility] 2020-10-20 2020-10-20 Outpatient R LCUIAN CRESPO [facility] [id number] Univers 13:30:00 13:30:00 [facility] 2020-10-20 2020-10-20 Telephone Cherie Lucian [facility] [id number] 00:00:00 00:00:00 HEALTH 350.1.13.10 FAMILY 4.2.7.2.686 [facility] [id number] [place] [facility]44 [facility]IC 2020-10-14 2020-10-14 Emergency X AKHIL [facility] ERT [id number] Univers 10:11:00 13:36:00 MIKE [facility] 2020-09-29 2020-09-29 Outpatient R LUCIAN CRESPO [facility] [id number] Univers 14:30:00 14:30:00 [facility] 2020-09-23 2020-09-23 Outpatient R HAMLET [facility] [id number] Univers 11:00:00 11:00:00 LEANNE [facility] 2020-09-17 2020-09-17 [facility] [id number] Univers 08:30:00 08:30:00 VIRGIL [facility] 2020-09-13 2020-09-13 [facility] 1.2.840.114 [id number] Univers 00:00:00 00:00:00 January PRIMARY 350.1.13.10 it y of CARE 4.2.7.2.686 Kristie LIMA [id number] [place] dical [address] [place] [address] 2020-09-04 2020-09-12 [facility] REBEKA [id number] Univers 13:37:00 15:16:00 VIRGIL [facility] 2020-09-11 2020-09-11 Outpatient R CHERIE LUCIAN [facility] [id number] Univers 11:30:00 [facility]-08-[facility] 2020-08-29 [facility] MPU [id number] Univers 23:57:00 16:50:00 ALISA [facility] 2020-08-14 2020-08-14 Outpatient R CHERIE [facility] [id number] Univers 11:00:00 11:33:22 [facility] 2020-08-14 2020-08-14 Outpatient R CHERIE [facility] [id number] Univers 11:00:00 11:00:00 [facility] 2020-07-15 2020-07-15 Outpatient Nirmal CRESPO LUCIAN [facility] [id number] Univers 08:30:00 08:30:[facility] 2020-07-12 2020-07-12 [facility] E[facility] [id number] Univers 14:02:00 18:26:00 ALEXANDRA [facility] 2020-07-15 2020-06-25 Inpatient [facility] DAYS [id number] [facility] 09:00:00 16:57:22 , Giuliano 22 [facility] 2020-05-02 2020-05-07 Inpatient [facility] ENDO [id number] [facility] 13:00:00 23:36:24 , Giuliano 99 [facility] 2020-04-17 2020-04-17 Outpatient R MASON, [facility] [id number] Univers 08:30:00 08:30:00 ALBERT [facility] 2019-12-14 2019-12-14 Outpatient R ALIDA, [facility] [id number] Univers 07:40:00 07:40:00 ANJU [facility] 2019-09-10 2019-09-10 Outpatient R MASON, [facility] [id number] Univers 14:30:00 14:30:00 [facility] 2019-07-27 2019-07-27 Outpatient R GODWIN, [facility] [id number] Univers 16:18:21 23:59:00 [facility] 2019-05-04 2019-05-04 Outpatient R JUANJOSE, [facility] [id number] Univers 00:55:57 00:55:57 [facility] 2018-09-27 2018-09-28 Day [facility] [id number] Memoria 12:11:00 04:59:00 Surgery r [address] 2018-09-27 2018-09-27 Outpatient [facility] JUANA 7500 [facility] 07:11:00 07:11:00 2018-09-05 2018-09-05 AppointRADHA Knapp [facility] [id number] [place] 12:45:00 12:45:00 t; PHILL MORAES NP P popeye POLLOCK NP ans 2018-08-04 2018-08-04 Appointmen RADHA GREENBERG [id number] [place] 10:00:00 10:00:00 t; KUSHAL GREENBERG M.D. Surgery Nai FATIMA M.D. Specialty ans 2018-06-13 2018-06-15 Inpatient [facility] [id number] Memoria 10:15:00 20:49:00 r Steward 01 [facility] 2018 2018 Appointtyson GRAHAM [facility] UTP [id number] [place] 09:45:00 09:45:00 t; DEUCE Jacobson Phys ici [address] ans [address] 2018-05-09 2018-05-09 AppointRADHA Knapp [place] [id number] [place] 13:45:00 13:45:00 t; PHILL MORAES, EXTRUSION DIE REPAIRER Surgery P hysici PHILL, EXTRUSION DIE REPAIRER Specialty ans 2018-05-02 2018-05-02 AppointRADHA Knapp UTP [id number] [place] 13:00:00 13:00:00 t; PHILL MORAES, EXTRUSION DIE REPAIRER P hysici PHILL, EXTRUSION DIE REPAIRER ans 2018-04-06 2018-04-06 AppointRADHA Knapp UTP [id number] [place] 12:00:00 12:00:00 t; PHILL MORAES, EXTRUSION DIE REPAIRER P hysici PHILL, EXTRUSION DIE REPAIRER ans 2018-02-21 2018-02-21 AppointRADHA Knapp [place] [id number] [place] 13:30:00 13:30:00 t; PHILL MORAES, EXTRUSION DIE REPAIRER Surgery P hysici PHILL, EXTRUSION DIE REPAIRER Specialty ans 2018-01-17 2018-01-17 AppointRADHA Knapp [place] [id number] [place] 15:00:00 15:00:00 t; PHILL MORAES, EXTRUSION DIE REPAIRER Surgery P hysici PHILL, EXTRUSION DIE REPAIRER Specialty ans 2018-01-06 2018-01-06 Appointtyson GLADYS [facility] UTP [id number] [place] 10:30:00 10:30:00 t; DEUCE Jacobson Phys ici [address] 2017-12-16 2017-12-16 AppointRADHA Sanzaire [id number] [place] 09:15:00 09:15:00 t; KUSHAL GREENBERG M.D. Surgery Nai FATIMA M.D. Specialty ans Results Test Description Test Time Test Comments Results Result Comments Source TROPONIN I 2022-11-02 11:12:06 Test Item Value Reference Range Interpretation Comme nts TROPONIN I (test code = 4957505392) <=0.034 FAVIAN (test code = FAVIAN) Reference [...] biotin. Lab Interpretation (test code = Normal 70078-7) [facility] / [id number] 11:11:05 Test Item Value Reference Range Interpretation Comments PROTIME PATIENT (test 12.7 See_Comment [Auto mated message] code = 5964-2) The system [employer] generated this result transmitted ref erence range: 12.0 - 1 4.7 Seconds. The re ference range was not u sed to interpret this result as normal/abnor mal. INR (test code = 6301-6) 1.0 Nor mal INR <1.1; Warfarin Therap eutic range 2.0 to 3. 0 or 2.5 to 3.5, dep ending upon the indica tions. Lab Interpretation (test Normal code = 56452-5) [facility] [id number] 11:09:02 Test Item Value Reference Range Interpretation Comments NT-proBNP (test code = 34 pg/mL <=125 8037641491) FAVIAN (test code = FAVIAN) Biotin has been reported to cause a negative bias, interpret results relative to patient's use of biotin. Lab Interpretation (test Normal code = 99994-3) [facility] METABOLIC PANEL (68987)2022-11-02 11:00:44 Test Item Value Reference Range Interpretation Comments NA (test code = 143 mmol/L 135-145 4968310135) K (test code = 4.0 mmol/L 3.5-5.0 8301299832) CL (test code = 105 mmol/L 98-108 1047742005) CO2 TOTAL (test code 29 mmol/L 23-31 = 5007673187) AGAP (test code = 9 2-16 0694280680) BUN (test code = 19 mg/dL 7-23 7689172508) GLUCOSE (test code = 83 mg/dL 70-110 3050094460) CREATININE (test code 0.69 mg/dL 0.50-1.04 = 0427322816) TOTAL BILI (test code 0.7 mg/dL 0.1-1.1 = 6007487167) CALCIUM (test code = 9.1 mg/dL 8.6-10.6 6685872235) T PROTEIN (test code 7.0 g/dL 6.3-8.2 = 0096961727) ALBUMIN (test code = 4.1 g/dL 3.5-5.0 8578664420) ALK PHOS (test code = 71 U/L 34-122 2004356894) ALTv (test code = 12 U/L 5-35 1742-6) AST(SGOT) (test code 21 U/L 13-40 = 2860143029) eGFR (test code = 91.2 mL/min/1.73m2 3590303926) FAVIAN (test code = FAVIAN) Association of [...] or urine or abnormalities in imaging tests). [facility] HospitalLIPASE, [id number] 11:00:03 Test Item Value Reference Range Interpretation Comments LIPASE (test code = 4868992131) 40 U/L 0-220 Lab Interpretation (test code = Normal 35022-4) [facility] WITH [id number] 10:50:46 Test Item Value Reference Range Interpretation Comments WBC (test code = 5.55 See_Comment [Automated 6690-2) message] The sy stem which generated this result transmitted reference range : 4.30 - 11.10 10*3/?L. The reference range was not used to interpret this result as normal/abnormal . RBC (test code = 4.35 See_Comment [Automated 789-8) message] The sy stem which generated this [...] RDW-SD (test code = 45.8 fL 39.0-49.9 34839-7) RDW-CV (test code = 13.3 % 12.0-15.5 788-0) PLT (test code = 198 See_Comment [Automated 777-3) message] The sy stem which generated this result transmitted reference range : 166 - 358 10*3/ ?L. The reference r gulshan was not used to interpret this result as normal/abnormal . MPV (test code = 11.5 fL 9.5-12.9 76425-4) NRBC/100 WBC (test 0.0 See_Comment [Automat ed code = 2256929981) message] The system which generated this result transmitted reference range : 0.0 - 10.0 /100 WBCs. The refer ence range was not u sed to interpret th is result as normal/abnormal . NRBC x10^3 (test code See_Comment [Auto mated = 6137235193) message] The s ystem which generated this result transmitted reference range : 10*3/?L. The reference range was not used to interpret this result as normal/abnormal . GRAN MAT (NEUT) % 58.4 % (test code = 770-8) IMM GRAN % (test code 0.50 % = 6113738971) LYMPH % (test code = 33.2 % 736-9) MONO % (test code = 5.0 % 5905-5) EOS % (test code = 2.7 % 713-8) BASO % (test code = 0.2 % 706-2) GRAN MAT x10^3(ANC) 3.24 10*3/uL 1.88-7.09 (test code = 4486523670) IMM GRAN x10^3 (test 0.03 10*3/uL 0.00-0.06 code = 3265024691) LYMPH x10^3 (test code 1.84 10*3/uL 1.32-3.29 = 731-0) MONO x10^3 (test code 0.28 10*3/uL 0.33-0.92 L = 742-7) EOS x10^3 (test code = 0.15 10*3/uL 0.03-0.39 711-2) BASO x10^3 (test code 0.01-0.07 = 704-7) Lab Interpretation Abnormal (test code = 00032-2) [facility] GLUCOSE (AUTOMATED)2022-10-25 12:55:54 Test Item Value Reference Range Interpretation Comments POCT GLU (test code = 2895006706) 72 mg/dL 70-110 Lab Interpretation (test code = Normal 89652-9) [facility] GLUCOSE (AUTOMATED)2022-10-25 12:55:54 Test Item Value Reference Range Interpretation Comments POCT GLU (test code = 6803235940) 72 mg/dL 70-110 Lab Interpretation (test code = Normal 98703-6) [facility] SARS-COV-2 ANTIGEN (BINAX NOW)2022-10-04 16:33:00 Test Item Value Reference Range Interpretation Comments POCT SARS-COV-2 ANTIGEN (test Not Detected Not Detected code = 74304-3) On board controls acceptable Yes with C Line (test code = 3574) [facility] SARS-COV-2 ANTIGEN (BINAX NOW)2022-10-04 16:33:00 Test Item Value Reference Range Interpretation Comments POCT SARS-COV-2 ANTIGEN (test Not Detected Not Detected code = 03052-0) On board controls acceptable Yes with C Line (test code = 3574) [facility] MOLECULAR [id number] 16:14:00 Test Item Value Reference Range Interpretation Comments POCT Molecular Strep (test code = Negative Negative 27559-2) Lab Interpretation (test code = Normal 15743-1) [facility] MOLECULAR [id number] 16:14:00 Test Item Value Reference Range Interpretation Comments POCT Molecular Strep (test code = Negative Negative 28287-3) Lab Interpretation (test code = Normal 15761-5) [facility] [id number] 03:15:54 Test Item Value Reference Range Interpretation Comments POCT Creatinine (test code = 0.6 mg/dL 0.5-1.3 2322364953) Lab Interpretation (test code = Normal 05874-8) [facility] PELVIS [id number] 18:31:00 [facility] GIOVANNY CALDERÓN : 1975 Sex: FPatient Name: GIOVANNY CALDERÓN Unit No: [id number] EXAMS: CPT CODE: [id number] CT ABD PELVIS W/CONT 93911 Location of dictation: B2 CT of the [...] and signed by: Agueda Loving M.D. Name: STEPHANEGIOVANNY LINDSEY [facility] Phys: [id number] - Elizabeth Shelton MD [address] : 1 08/10/1974 Age: 46 Sex: F [place] [address] Loc: P.ERS Exam Date: 12/29/2021 Status: REG ER PH: FAX: PAGE 1 Signed Report (CONTINUED) Patient Name: GIOVANNY CALDERÓN Unit No: [id number] EXAMS: CPT CODE: [id number] CT ABD PELVIS W/CONT 13493 (Continued) CC: Elizabeth Shelton MD Allison hnologist: Odalys Lubin CTDI: 9.64 DLP: 574 Trscr Dt/Tm: 12/29/2021 (1830) by:Kael Printed Date/Time: 12/29/2021 (1834) Name: GIOVANNY CALDERÓN [facility] Phys: Elizabeth Leonard MD [address] : 1975 Age: 46 Sex: [place] [address] Loc: BRANDIE Exam Date: 12/29/2021 Status: REG ER PH: FAX: PAGE 2 Signed ReportUA RFLX MICR CULT IF [id number] 15:12:00 Test Item Value Reference Range Interpretation [...] SQU) Indication for culture: Flank PainUR HCG [id number] 15:12:00 Test Item Value Reference Range Interpretation Comments UR HCG QUAL (test code = HCGQLU) NEGATIVE NEGATIVE Indication for culture: Flank PainCOMPREHENSIVE METABOLIC [id number] 15:10:00 Test Item Value Reference Range Interpretation [...] Reference Range Feb code = ALKP) 2020 [id number] 15:10:00 Test Item Value Reference Range Interpretation Comments LIPASE (test code = 25 U/L 12-53 N Please n ote: New LIP) Reference Range Jul 2020 [id number] 15:10:00 Test Item Value Reference Range Interpretation Comments TROPONIN-I (test < 2.5 pg/mL 27.36-66.23 L Please note : Units and code = TROPI) Reference Rang e have changedFeb 3, 2 021 CBC W/AUTO [id number] 14:43:00 Test Item Value Reference Range Interpretation [...] BA#) 0.01 x10 3/uL 0.0-0.20 N PLATELET [id number] 13:37:00 Test Item Value Reference Range Interpretation Comments PLATELET COUNT (test code = PLT) 105 x10 3/uL 150-440 L [id number] 12:21:00 Test Item Value Reference Range Interpretation Comments GLUBED (test code = GLUBED) 92 MG/DL 70-105 N [id number] 07:19:00 Test Item Value Reference Range Interpretation Comments GLUBED (test code = GLUBED) 82 MG/DL 70-105 N BASIC METABOLIC [id number] 02:12:00 Test Item Value Reference Range Interpretation [...] New = CA) Reference Range Jul 2020 [id number] 02:12:00 Test Item Value Reference Range Interpretation Comments MAGNESIUM (test code = 1.6 mg/dL 1.6-2.6 N Pleas e note: New MAG) Reference Range Jul 2020 RECOLLECTCBC W/AUTO [id number] 00:39:00 Test Item Value Reference Range Interpretation [...] 0.01 x10 3/uL 0.0-0.20 N = BA#) [id number] 20:11:00 Test Item Value Reference Range Interpretation Comments GLUBED (test code = GLUBED) 88 MG/DL 70-105 N [id number] 17:39:00 Test Item Value Reference Range Interpretation Comments GLUBED (test code = GLUBED) 64 MG/DL 70-105 L [id number] 16:16:00 Test Item Value Reference Range Interpretation Comments GLUBED (test code = GLUBED) 74 MG/DL 70-105 N [id number] 11:55:00 Test Item Value Reference Range Interpretation Comments MAGNESIUM (test code = 1.6 mg/dL 1.6-2.6 N Pleas e note: New MAG) Reference Range Jul 2020 [id number] 07:56:00 Test Item Value Reference Range Interpretation Comments GLUBED (test code = GLUBED) 75 MG/DL 70-105 N BASIC METABOLIC [id number] 05:44:00 Test Item Value Reference Range Interpretation [...] CA) Reference Range Jul 2020 CBC W/AUTO [id number] 05:30:00 Test Item Value Reference Range Interpretation [...] = BA#) 0.02 x10 3/uL 0.0-0.20 N [id number] 21:05:00 Test Item Value Reference Range Interpretation Comments GLUBED (test code = GLUBED) 70 MG/DL 70-105 N [id number] 19:10:00 Test Item Value Reference Range Interpretation Comments GLUBED (test code = GLUBED) 70 MG/DL 70-105 N COVID 19 INHOUSE [id number] 18:26:00 Test Item Value Reference Range Interpretation Comments COVID 19 INHOUSE AG POSITIVE NEGATIVE A Critical Value reported (test code = toFirst Name:BASIL COOL [id number]) Last Name:TORSTEN NAVA READ BACK AND V Geremias P.LAB.IX, on 1 08/08/20, @ 1826. - CT ABD PELVIS [id number] 13:57:00 [facility] GIOVANNY CALDERÓN : 1975 Sex: FPatient Name: GIOVANNY CALDERÓN Unit No: [id number] EXAMS: CPT CODE: [id number] CT ABD PELVISW/CONT 62248 EXAM: CT abdomen and pelvis with contrast [...] of acute intra-abdominal abnormality. Name: GIOVANNY CALDERÓN [facility] Phys: Sabino Hurst MD [address] : 1975 Age: 45 Sex: [place] [address] Loc: P.ERS Exam Date: 06/07/2021 Status: REG ER PH: FAX: PAGE 1 Signed Report (CONTINUED) Patient Name: GIOVANNY CALDERÓN Unit No: [id number] EXAMS: CPT CODE: [id number] CT ABD PELVIS W/CONT 68241 (Continued) 2. Previous gastric sleeve. Enteric contrast [...] Printed Date/Time: 06/07/2021 (1400) Name: GIOVANNY CALDERÓN [facility] Phys: Sabino Hurst MD [address] : 1975 Age: 45 Sex: [place] [address] [facility] [id number] Loc: BRANDIE Exam Date: 06/07/2021 Status: REG ER PH: FAX: PAGE 2 Signed ReportUA RFLX MICR CULT IF [id number] 13:36:00 Test Item Value Reference Range Interpretation [...] MUCU) Indication for culture: Suprapubic PainUR HCG [id number] 13:36:00 Test Item Value Reference Range Interpretation Comments UR HCG QUAL (test code = HCGQLU) NEGATIVE NEGATIVE Indication for culture: Suprapubic PainBASIC METABOLIC [id number] 12:58:00 Test Item Value Reference Range Interpretation [...] CA) Reference Range Jul 2020 LIVER FUNCTION [id number] 12:58:00 Test Item Value Reference Range Interpretation [...] code = ALKP) Reference Range Jul 2020 [id number] 12:58:00 Test Item Value Reference Range Interpretation Comments LIPASE (test code = 29 U/L 12-53 N Please n ote: New LIP) Reference Range Jul 2020 CBC W/AUTO [id number] 12:43:00 Test Item Value Reference Range Interpretation [...] = BA#) 0.01 x10 3/uL 0.0-0.20 N [id number] 19:35:00 Test Item Value Reference Range Interpretation Comments SURGICAL (test code = SR) RUN DATE: 05/06/21 [place] [facility] - LAB PAGE 1 RUN TIME: 1934 Specimen Inquiry RUN USER: INTERFACE PATIENT: GIOVANNY CALDERÓN LOC: Kieran Ellison U #: [id number] AGE/SX: 45/F ROOM: [facility] RE05/04/21[facility] DR: Giuliano Abdullahi MD : 75 BED: 1 DIS: 05/06/21 STATUS: DIS IN TLOC: SPEC #: [id number] RECD: 05/05/2166 STATUS: JACQUELINE MARTE #: [id number] INA: 05/04/21-[address] [facility] DR: Giuliano Abdullahi MD ENTERED: 05/05/21 TYPE: SURGICAL OTHR DR: Alisa Beaver MD ORDERED: 95981/2, 15628/4, ANATOMIC SPEC HISTOLOGY: TISSUE ID BLK PCS [...] in cassette B.CM/ks Technical component performed at [facility] [facility], [facility], [address] CONTINUED ON NEXT PAGE RUN DATE: 05/06/21 [facility] - LAB PAGE 2 RUN TIME: 1934 Specimen Inquiry RUN USER: INTERFACE SPEC #: [id number] PATIENT: STEPHANEGIOVANNY LINDSEY #[id number] (Continued) --- MICROSCOPIC DESCRIPTION Performed. CLINICAL INFORMATION Morbid Obesity Signed SIGNATURE ON FILE Colin Zamudio MD 05/06/211934 END OF REPORT [id number] 06:09:00 Test Item Value Reference Range Interpretation Comments GLUBED (test code = GLUBED) 106 MG/DL 70-105 H [id number] 00:17:00 Test Item Value Reference Range Interpretation Comments GLUBED (test code = GLUBED) 111 MG/DL 70-105 H [id number] 19:16:00 Test Item Value Reference Range Interpretation Comments GLUBED (test code = GLUBED) 107 MG/DL 70-105 H [id number] 12:29:00 Test Item Value Reference Range Interpretation Comments GLUBED (test code = GLUBED) 135 MG/DL 70-105 H BASIC METABOLIC [id number] 06:20:00 Test Item Value Reference Range Interpretation [...] New = CA) Reference Range Jul 2020 [id number] 06:20:00 Test Item Value Reference Range Interpretation Comments PHOSPHOROUS (test code 4.0 mg/dL 2.4-5.1 N Pleas e note: New = PHOS) Reference Range Jul 2020 [id number] 06:20:00 Test Item Value Reference Range Interpretation Comments MAGNESIUM (test code = 1.7 mg/dL 1.6-2.6 N Pleas e note: New MAG) Reference Range Jul 2020 [id number] 06:14:00 Test Item Value Reference Range Interpretation Comments GLUBED (test code = GLUBED) 138 MG/DL 70-105 H CBC W/AUTO [id number] 05:54:00 Test Item Value Reference Range Interpretation [...] = BA#) 0.02 x10 3/uL 0.0-0.20 N [id number] 00:38:00 Test Item Value Reference Range Interpretation Comments GLUBED (test code = GLUBED) 118 MG/DL 70-105 H [id number] 16:23:00 Test Item Value Reference Range Interpretation Comments GLUBED (test code = GLUBED) 118 MG/DL 70-105 H [id number] 14:47:00 Test Item Value Reference Range Interpretation Comments GLUBED (test code = GLUBED) 84 MG/DL 70-105 N COVID Asymptomatic IH [id number] 13:19:00 Test Item Value Reference Interpretation Comments [...] i ts performancechar acteristics were determined by [facility]. Thi s test has notbeen FDA [...] setting? Unknown? UnknownAge at collection: YBASIC METABOLIC [id number] 18:29:00 Test Item Value Reference Range Interpretation [...] = CA) Reference Range Jul 2020 PROTHROMBIN [id number] 18:12:00 Test Item Value Reference Range Interpretation [...] 2.5-3.5recurren t systemic emboli sm. THROMBOPLASTIN TIME [id number] 18:12:00 Test Item Value Reference Range Interpretation Comments THROMBOPLASTIN TIME 33.9 SECONDS 23.8-34.8 N INTERPRE TATIVE PARTIAL (test code = DATA:Th erapeutic PTT) range: Unfractionated heparin:55 - 80 seconds Argatroban:1.5 to 3 times the basel ine PTT CBC W/AUTO [id number] 18:00:00 Test Item Value Reference Range Interpretation [...] 0.02 x10 3/uL 0.0-0.20 N GLUCOSE BEDSIDE [id number] 11:18:00 Test Item Value Reference Range Interpretation Comments GLUCOSE BEDSIDE TESTING (test code 127 MG/DL 70-119 H = GLUBED) COVID 19 Asymptomatic IH [id number] 11:01:00 Test Item Value Reference Range Interpretation Comments COVID 19 Asymptomatic IH AG (test Negative Neg code = COVNONPUIAG) GLUCOSE BEDSIDE [id number] 06:07:00 Test Item Value Reference Range Interpretation Comments GLUCOSE BEDSIDE TESTING (test code 138 MG/DL 70-119 H = GLUBED) GLUCOSE BEDSIDE [id number] 20:58:00 Test Item Value Reference Range Interpretation Comments GLUCOSE BEDSIDE TESTING (test code 190 MG/DL 70-119 H = GLUBED) GLUCOSE BEDSIDE [id number] 16:30:00 Test Item Value Reference Range Interpretation Comments GLUCOSE BEDSIDE TESTING (test code 152 MG/DL 70-119 H = GLUBED) GLUCOSE BEDSIDE [id number] 11:40:00 Test Item Value Reference Range Interpretation Comments GLUCOSE BEDSIDE TESTING (test code 151 MG/DL 70-119 H = GLUBED) GLUCOSE BEDSIDE [id number] 05:53:00 Test Item Value Reference Range Interpretation Comments GLUCOSE BEDSIDE TESTING (test code 124 MG/DL 70-119 H = GLUBED) GLUCOSE BEDSIDE [id number] 21:00:00 Test Item Value Reference Range Interpretation Comments GLUCOSE BEDSIDE TESTING (test code 151 MG/DL 70-119 H = GLUBED) GLUCOSE BEDSIDE [id number] 16:24:00 Test Item Value Reference Range Interpretation Comments GLUCOSE BEDSIDE TESTING (test code 118 MG/DL 70-119 N = GLUBED) GLUCOSE BEDSIDE [id number] 11:46:00 Test Item Value Reference Range Interpretation Comments GLUCOSE BEDSIDE TESTING (test code 129 MG/DL 70-119 H = GLUBED) GLUCOSE BEDSIDE [id number] 06:20:00 Test Item Value Reference Range Interpretation Comments GLUCOSE BEDSIDE TESTING (test code = 98 MG/DL 70-119 N GLUBED) GLUCOSE BEDSIDE [id number] 19:56:00 Test Item Value Reference Range Interpretation Comments GLUCOSE BEDSIDE TESTING (test code 130 MG/DL 70-119 H = GLUBED) GLUCOSE BEDSIDE [id number] 15:54:00 Test Item Value Reference Range Interpretation Comments GLUCOSE BEDSIDE TESTING (test code = 93 MG/DL 70-119 N GLUBED) GLUCOSE BEDSIDE [id number] 11:38:00 Test Item Value Reference Range Interpretation Comments GLUCOSE BEDSIDE TESTING (test code 133 MG/DL 70-119 H = GLUBED) GLUCOSE BEDSIDE [id number] 06:07:00 Test Item Value Reference Range Interpretation Comments GLUCOSE BEDSIDE TESTING (test code 106 MG/DL 70-119 N = GLUBED) - CT HEAD/BRAIN W/O [id number] 23:08:00 [facility] GIOVANNY CALDERÓN : 1975 Sex: F PatientName: GIOVANNY CALDERÓN Unit No: [id number] EXAMS: CPT CODE: [id number] CT HEAD/BRAIN W/O CONT 54802 EXAM: - CT HEAD/BRAIN W/O CONT LOCATION: [...] (2307) tSTONEYR.MKW1 RAND Evangelista NAME: GIOVANNY CALDERÓN [employer] [facility] PHYS: NICHELLEYUE Clark [address] : 1975 AGE: 45 SEX: F YAYA EVANGELISTA [address]DZDT NO: [id number] LOC: B.160 W PHONE #: [phone] EXAM DATE: 10/31/2020 STATUS: ADM IN FAX #: [phone] RAD #: D/C DT PAGE 1 Signed Report Patient Name: GIOVANNY CALDERÓN Unit No: [id number] EXAMS: CPT CODE: [id number] CT HEAD/BRAIN W/O CONT 38812 <Continued> Orig Print D/T: S: 10/31/2020(2311) RAND Evangelista NAME: GIOVANNY CALDERÓN [employer] [facility] PHYS: ANNAMARIA [address] : 1975 AGE: 45 SEX: F AYYA EVANGELISTA [address] LOC: B.160 W PHONE#: [phone] EXAM DATE: 10/31/2020 STATUS: ADM IN FAX #: [phone] RAD #: D/C DT PAGE 2 Signed ReportGLUCOSE BEDSIDE [id number] 20:30:00 Test Item Value Reference Range Interpretation Comments GLUCOSE BEDSIDE TESTING (test code 111 MG/DL 70-119 N = GLUBED) GLUCOSE BEDSIDE [id number] 16:58:00 Test Item Value Reference Range Interpretation Comments GLUCOSE BEDSIDE TESTING (test code 110 MG/DL 70-119 N = GLUBED) GLUCOSE BEDSIDE [id number] 11:53:00 Test Item Value Reference Range Interpretation Comments GLUCOSE BEDSIDE TESTING (test code 149 MG/DL 70-119 H = GLUBED) GLUCOSE BEDSIDE [id number] 06:44:00 Test Item Value Reference Range Interpretation Comments GLUCOSE BEDSIDE TESTING (test code 119 MG/DL 70-119 N = GLUBED) GLUCOSE BEDSIDE [id number] 21:10:00 Test Item Value Reference Range Interpretation Comments GLUCOSE BEDSIDE TESTING (test code 143 MG/DL 70-119 H = GLUBED) - CT ANGIO [id number] 14:40:00 [facility]: GIOVANNY CALDERÓN : 1975 Sex: F PatientName: GIOVANNY CALDERÓN Unit No: [id number] EXAMS: CPT CODE: [id number] CT ANGIO HEAD [address] Location code: R 16 CT Angiogram of [...] the carotid arteries. CT angiography of the [place] with Contrast Indication: Stenosis, aneurysm. Comparison: 10/27/2020. Technique: Axial images were obtained post IV contrast with Sagittal and coronal MIPS. This exam was performed according to our departmental dose-optimization program, which includes automated exposure control, adjustment of the mA and/or kV according to patient size and/or use of HCAH Jean Carlos NAME: GIOVANNY CALDERÓN [facility] PHYS: Heather Jackson [address] [place] [address] BLVD : 1975 AGE: 45 SEX: F YAYA EVANGELISTA [address] LOC: B.160 W PHONE #: [phone] EXAM DATE: 10/30/2020 STATUS: ADM IN FAX #: [phone] RAD #: D/C DT PAGE 1 Signed Report (CONTINUED) Patient Name: GIOVANNY CALDERÓN Unit No: [id number] EXAMS: CPT CODE: [id number] CT ANGIO HEAD [address]79[address] <Continued> iterative reconstruction technique. Total exam DLP [...] Technologist: Gama Lewis CTDI: 0 DLP: 0 [facility] Jean Carlos NAME: GIOVANNY CALDERÓN MEDICAL IMAG[facility] PHYS: Heather Jackson A [address] [place] [address] : 1975 AGE: 45 SEX:YAYA GERMAN [address] LOC: B.160 W PHONE #: [phone] EXAM DATE: 10/30/2020TATUS: ADM IN FAX #: [phone] RAD #: D/C DT PAGE 2 Signed Report Patient Name: GIOVANNY CALDERÓN U nit No: [id number] EXAMS: CPT CODE: [id number] CT ANGIO HEAD [address] <Continued> Trnscrpt: 10/30/2020 (5842) t.SDR.DRB1 [facility] [place] NAME: CALDERÓN,GIOVANNY MEDICAL IMAGING PHYS: Heather Jackson [address] : 1975 AGE: 45 SEX: YAYA GERMAN [address] LOC: B.160 W PHONE #: [phone] EXAM DATE: 10/30/2020 STATUS: ADM IN FAX #: [phone] RAD #: D/C DT PAGE 3 Signed Report- CT ANGIO [id number] 14:40:00[facility]: GIOVANNY CALDERÓN : 1975 Sex: F PatientName: GIOVANNY CALDERÓN Unit No: [id number] EXAMS: CPT CODE: [id number] CT ANGIO NECK [address] Location code: R 16 CT Angiogram of [...] the carotid arteries. CT angiography of the [place] with Contrast Indication: Stenosis, aneurysm. Comparison: 10/27/2020. Technique: Axial images were obtained post IV contrast with Sagittal and coronal MIPS. This exam was performed according to our departmental dose-optimization program, which includes automated exposure control, adjustment of the mA and/or kV according to patient size and/or use of HCAH Jean Carlos NAME: GIOVANNY CALDERÓN MEDICAL IMAG[facility] PHYS: Hannah Jackson[address] : 1975 AGE: 45 SEX: F YAYA EVANGELISTA [address] [facility] [id number] LOC: B.160 W PHONE #: [phone] EXAM DATE: 10/30/2020 STATUS: ADM IN FAX #: [phone] RAD #: D/C DT PAGE 1 Signed Report (CONTINUED) Patient Name: GIOVANNY CALDERÓN Unit No: [id number] EXAMS: CPT CODE: [id number] CT ANGIO NECK [address] <Continued> iterative reconstruction technique. Total exam DLP [...] (1440) ChemoDRB1 RAND Evangelista NAME: GIOVANNY CALDERÓN [facility] IMAGING PHYS: [address] : 1975 AGE: 45 SEX: F JEAN [place]LOS [place] [address] LOC: B.160 W PHONE #: [phone] EXAM DATE: 10/30/2020 STATUS: ADM IN FAX #: [phone] RAD #: D/C DT PAGE 2 Signed Report Patient Name: GIOVANNY CALDERÓN Unit No: [id number] EXAMS: CPT CODE: [id number] CT ANGIO NECK [address]391 <Continued> Orig Print D/T: S: 10/30/2020 (0463) RAND Evangelista NAME: GIOVANNY CALDERÓN [facility] IM[facility] PHYS: ANNAMARIA [address] : 1975 AGE: 45 SEX:F JEAN CARLOS [place] [address] LOC: B.160 W PHONE #: [phone] EXAM DATE: 10/30/2020TATUS: ADM IN FAX #: [phone] RAD #: D/C DT PAGE 3 Signed ReportBASIC METABOLIC [id number] 08:27:00 Test Item Value Reference Range Interpretation [...] (test code = MG Index/DL The system videof.me) generated this result transmit octaviano reference range [...] this result as normal/abnormal . CBC W/AUTO [id number] 07:39:00 Test Item Value Reference Range Interpretation [...] 0.00 K/mm3 0.0-0.05 N NRBC#) GLUCOSE BEDSIDE [id number] 20:47:00 Test Item Value Reference Range Interpretation Comments GLUCOSE BEDSIDE TESTING (test code 112 MG/DL 70-119 N = GLUBED) GLUCOSE BEDSIDE [id number] 18:38:00 Test Item Value Reference Range Interpretation Comments GLUCOSE BEDSIDE TESTING (test code = 84 MG/DL 70-119 N GLUBED) - CT HEAD/BRAIN W/O [id number] 09:37:00 [facility] GIOVANNY CALDERÓN : 1975 Sex: F PatientName: GIOVANNY CALDERÓN Unit No: [id number] EXAMS: CPT CODE: [id number] CT HEAD/BRAIN W/O CONT 26889 EXAM: - CT HEAD/BRAIN W/O CONT INDICATION: [...] and signed by: Edmond Carter MD CC: Tyehsa Dacosta MD; Zander Camilo MD; Omayra Alfonso Dictated Date/Time: 10/29/2020 (0937) Technologist: Moriah Mills CTDI: 47.36 DLP: 757.79 Trnscrpt: 10/29/2020 (0937) ChemoAH26 RAND Evangelista NAME: GIOVANNY CALDERÓN MEDICAL IMAGING PHYS: [facility] [place] [place] : 1975 AGE: 45 SEX: YAYA GERMAN [facility] LOC: MichelleCCU34 D PHONE #: [phone] EXAM DATE: 10/28/2020 STATUS: ADM IN FAX #: [phone] RAD #: D/C DT PAGE 1 Signed Report Patient Name: GIOVANNY CALDERÓN Unit No: [id number] EXAMS: CPT CODE: [id number] CT HEAD/BRAIN W/O CONT 21147 <Continued> Orig Print D/T: S: 10/29/2020 (0940) RAND Evangelista NAME: GIOVANNY CALDERÓN MEDICAL IMAGING [place] [facility] [place] : 1975 AGE: 45 SEX: YAYA GERMAN [facility] LOC: MichelleCCU34 D PHONE #: [phone] EXAM DATE: 10/28/2020 STATUS: ADM IN FAX #: [phone] RAD #: D/C DT PAGE 2 Signed ReportBASIC METABOLIC [id number] 06:27:00 Test Item Value Reference Range Interpretation [...] message] (test code = Index/DL The system videof.me) generated this result transmit octaviano reference range [...] 4.0-12.0 N code = CARB) BASIC METABOLIC [id number] 06:25:00 Test Item Value Reference Range Interpretation [...] message] (test code = Index/DL The system PhotoT[employer] HEMINDEX) generated this result transmit octaviano reference [...] code = mcG/ML 4.0-12.0 CARB) CBC W/AUTO [id number] 06:12:00 Test Item Value Reference Range Interpretation [...] 0.00 K/mm3 0.0-0.05 N NRBC#) GLUCOSE BEDSIDE [id number] 00:39:00 Test Item Value Reference Range Interpretation Comments GLUCOSE BEDSIDE TESTING (test 91 MG/DL 70-119 N Notified Nurse~ code = GLUBED) GLUCOSE BEDSIDE [id number] 17:31:00 Test Item Value Reference Range Interpretation Comments GLUCOSE BEDSIDE TESTING (test code 103 MG/DL 70-119 N = GLUBED) GLUCOSE BEDSIDE [id number] 12:56:00 Test Item Value Reference Range Interpretation Comments GLUCOSE BEDSIDE TESTING (test code = 99 MG/DL 70-119 N GLUBED) URINALYSIS [id number] 11:40:00 Test Item Value Reference Range Interpretation [...] = RARE /LPF NONE MUCU) GLUCOSE BEDSIDE [id number] 08:42:00 Test Item Value Reference Range Interpretation Comments GLUCOSE BEDSIDE TESTING (test code = 97 MG/DL 70-119 N GLUBED) VITAMIN [id number] 08:05:00 Test Item Value Reference Range Interpretation Comments VITAMIN B12 (test code = VITB12) 382 PG/ML 183-986 N FOLIC [id number] 08:05:00 Test Item Value Reference Range Interpretation [...] RISK 4.97 4.44 2X AVG RISK 9.55 7.05 3X AVG RISK 23. 39 11.04 [Automate [...] ave rage [Automated mess age] The system PhotoTLC generated this result transmit octaviano reference range : 1.48-3.22 Avg. The reference range was not used to interpret this result as normal/abnormal . GLYCOSYLATED HEMOGLOBIN (HA1C)2020-10-28 07:37:00 Test Item Value Reference Range Interpretation Comments GLYCOSYLATED HEMOGLOBIN (HA1C) 7.3 % IS-A1C 4.5-5.6 H (test code = GLYHGB) ESTIMATED AVERAGE [id number] 07:37:00 Test Item Value Reference Range Interpretation Comments ESTIMATED AVERAGE GLUCOSE (test 163 MG/DLest code = EAG) CBC W/AUTO [id number] 07:29:00 Test Item Value Reference Range Interpretation [...] = 0.00 K/mm3 0.0-0.05 N NRBC#) SED [id number] 07:29:00 Test Item Value Reference Range Interpretation Comments SED RATE (test code = SEDW) 23 mm/hr 0-20 H COMPREHENSIVE METABOLIC [id number] 07:22:00 Test Item Value Reference Range Interpretation [...] (test code = MG Index/DL The system Tomveyi Bidamon h HEMINDEX) generated this result transmit octaviano [...] to interpret this result as normal/abnormal . [id number] 07:22:00 Test Item Value Reference Range Interpretation Comments PHOSPHOROUS (test code = PHOS) 4.5 MG/DL 2.5-4.9 N [id number] 07:22:00 Test Item Value Reference Range Interpretation Comments MAGNESIUM (test code = MAG) 2.4 MG/DL 1.6-2.6 N THYROID STIMULATING [id number] 07:22:00 Test Item Value Reference Range Interpretation Comments THYROID STIMULATING HORMONE 1.190 mc IU/ML 0.340-4.820 N (test code = TSH) COMPREHENSIVE METABOLIC [id number] 07:10:00 Test Item Value Reference Range Interpretation [...] [Aut omated code = LIPINDEX) Index/DL message] Th e system which generated this result transmitted reference range : 1 NORMAL. The reference range was not used to interpret this result as normal/abnormal . [id number] 07:10:00 Test Item Value Reference Range Interpretation Comments PHOSPHOROUS (test code = PHOS) MG/DL 2.5-4.9 [id number] 07:10:00 Test Item Value Reference Range Interpretation Comments MAGNESIUM (test code = MAG) 2.4 MG/DL 1.6-2.6 N THYROID STIMULATING [id number] 07:10:00 Test Item Value Reference Range Interpretation Comments THYROID STIMULATING HORMONE (test mc IU/ML 0.340-4.820 code = TSH) CBC W/AUTO [id number] 06:44:00 Test Item Value Reference Range Interpretation [...] = 0.00 K/mm3 0.0-0.05 N NRBC#) SED [id number] 06:44:00 Test Item Value Reference Range Interpretation Comments SED RATE (test code = SEDW) mm/hr 0-20 PT AND [id number] 06:36:00 Test Item Value Reference Interpretation Comments [...] prevention in p rosthetic heart 3.0-5.4 A [place] mortality reduc tion THROMBOPLASTIN TIME 28.3 SECONDS 24-37.7 N THERAPEU TIC RANGE FOR PARTIAL (test code UNFRACTIO NATED HEPARIN = = PTT) 50.5-83.6 SEC T his test is not recommen ded to monitor low molecularweight heparin or danaparoid. Order LMWH test COLLECTION THROUGH LINES THAT HAVE BEEN PREVIOUSLY FLUS HEDWITH HEPARIN SHOULD BE AVOIDED DUE TO POSSIBLE HEPARINCONTAMIN ATION - CT ANGIO [id number] 23:36:00 [facility] 1976 Sex: F Name: GIOVANNY CALDERÓN [facility] : 1976 Age/S: 44 / F [address] [facility] Unit #: [id number] Loc: [place] [address] Phys: Lisa Amaya MD Acct: [id number] Dis Date: Status: REG ER PHONE #: [phone] Exam Date: 10/27/2020 4255 FAX #: Reason: left side weakness EXAMS: CPT: [id number] CT ANGIO NECK [address] EXAM: - CT ANGIO HEAD, - CT [...] sagittal maximum intensity projection images are provided. Thisexam was performed according to our departmental dose-optimization program, which includes automatedexposure control, adjustment of the mA and/or kV according to patient size and/or use of iterative reconstruction technique COMPARISON: None available time of interpretation. FINDINGS: Exam is limitedby severe venous contamination. For the purposes of this dictation, hemodynamically significant stenosis is characterized as greater than 50%. CTA head: The petrous, cavernous, and clinoid internal carotid arteries do not demonstrate hemodynamically significant stenoses. The anterior and middle cerebral arteries do not demonstrate hemodynamically significant stenoses. [place] of both vertebral arteries into the basilar. Basilar artery and posterior cerebral arteries are do not demonstrate hemodynamically significant stenoses. No aneurysm is seen. The dural venous sinuses are patent. PAGE 1 Signed Report (CONTINUED) Name: GIOVANNY CALDERÓN [facility] : 1976 Age/S: 44 / F [address] [address] [place] Unit #: [id number] Loc: [place] [address] Phys: Lisa Amaya MD Acct: [id number] Dis Date: Status: REG ER PHONE #: [phone] Exam Date: 10/27/20202329 FAX #: Reason: left side weakness EXAMS: CPT: [id number] CT ANGIO NECK [address] <Continued> CTA neck: The origins of the great vessels from the aortic arch do not demonstrate hemodynamically significant stenoses. The bilateral common carotid arteries and bulbs are without hemodynamically significant stenosis. The internal carotid arteries do not demonstrate hemodynamically significant stenosis. No pseudoaneurysm or dissection. The vert ebral arteries are codominant. No incidental soft tissue [...] Alisa Alcocer M.D. CC: Lisa Amaya MD Technologist:Hawa Rubio RT(R)(CT); ... CTDI: DLP: Trnscb Date/Time: 10/27/2020 (2335) Radha.MKW1 Orig Print D/T: S: 10/27/2020 (7816) PAGE 2 Signed Report- CT ANGIO [id number] 23:36:00 [facility] : 1976 Sex: F Name: GIOVANNY CALDERÓN [facility] : 1976 Age/S: 44 / F [address] [facility] [place] Unit #: [id number] Loc: [place] [address] Phys: Lisa Amaya MD Acct: [id number] Dis Date: Status: REG ER PHONE #: [phone] Exam Date: 10/27/20202329 FAX #: Reason: left side weakness EXAMS: CPT: [id number] CT ANGIO HEAD [address]236 EXAM: - CT ANGIO HEAD, - CT [...] arteries do not demonstrate hemodynamically significant stenoses. [place] of both vertebral arteries into the basilar. Basilar artery and posterior cerebral arteries are do not demonstrate hemodynamically significant stenoses. No aneurysm is seen. The dural venous sinuses are patent. PAGE 1 Signed Report (CONTINUED) Name: GIOVANNY CALDERÓN : 1976 Age/S: 44 / F [address] Unit #: [id number] Loc: [place] [address] Phys: Lisa Amaya MD Acct: [id number] Dis Date: Status: REG ER PHONE #: [phone] Exam Date: 10/27/20202329 FAX #: Reason: left side weaknessEXAMS: CPT: [id number] CT ANGIO HEAD [address] <Continued> CTA neck: The origins of the [...] Castaneda, RT(R)(CT) CTDI:DLP: Trnscb Date/Time: 10/27/2020 (2336) t.NURYSR.JOSE ANTONIOW1 Orig Print D/T: S: 10/27/2020 (6379) PAGE 2 Signed ReportCOVID 19 INHOUSE [id number] 23:11:00 Test Item Value Reference Range Interpretation Comments COVID 19 INHOUSE AG NEGATIVE Negative Per manu facturer, (test code = negative result s should XFZQE25CQTG) be treated aspr esumptive and, if inconsi [...] symptoms co nsistent with COVID-19. BASIC METABOLIC [id number] 22:48:00 Test Item Value Reference Range Interpretation [...] 8.5 MG/DL 8.5-10.1 N Completed by Nursing: [id number] 22:48:00 Test Item Value Reference Range Interpretation [...] ruth yby method. Completed by Nursing: NOPROTHROMBIN [id number] 22:41:00 Test Item Value Reference Range Interpretation Comments PT PATIENT (test code = PTP) 11.2 SECONDS 9.3-12.9 N INTERNATIONAL NORMAL RATIO 1.00 INR Unit 0.8-1.2 N (test code = INR) THROMBOPLASTIN TIME [id number] 22:41:00 Test Item Value Reference Range Interpretation Comments THROMBOPLASTIN TIME PARTIAL 32.7 SECONDS 26-35 N (test code = PTT) GLUCOSE BEDSIDE [id number] 22:18:00 Test Item Value Reference Range Interpretation Comments GLUCOSE BEDSIDE TESTING (test code 190 mg/dL 70-110 H = GLUBED) CBC W/O [id number] 22:18:00 Test Item Value Reference Range Interpretation [...] 7.0-10.5 H MPV) - CT HEAD/BRAIN W/O [id number] 22:14:00 [facility] : 1976 Sex: F Name: GIOVANNY CALDERÓN [facility] : 1976 Age/S: 44 / F [address] [address] Unit #: [id number] Loc: [place] [address] Phys: Lisa Amaya MD Acct: [id number] Dis Date: Status: PRE ER PHONE #: [phone] Exam Date: 10/27/20202208 FAX #: Reason: code stroke EXAMS: CPT: [id number] CT HEAD/BRAIN W/O CONT 72958 EXAM: CT Head without contrast Location: A1 [...] 1 Signed Report (CONTINUED) Name: GIOVANNY CALDERÓN [facility] : 1976 Age/S: 44 / F [address] [address] Unit #: [id number] Loc: [place] [address] Phys: Lisa Amaya MD Acct: [id number] Dis Date: Status: PRE ER PHONE #: [phone] Exam Date: 10/27/20202208 FAX #: Reason: code stroke EXAMS: CPT: [id number] CT HEAD/BRAIN W/O CONT 05406 <Continued> at 2214 Reported and signed by: Gene Kaur M.D. CC: Lisa Amaya MD Technologist:RT Elaine(R)(CT); ... CTDI: DLP: Trnscb Date/Time: 10/27/2020 (2213) tSTONEYR.IH2Qbjh Print D/T: S: 10/27/2020 (9) PAGE 2 Signed ReportSURGICAL [id number] 09:03:00 Test Item Value Reference Range Interpretation Comments SURGICAL SPECIMENS (test code = SURG) --------RUN DATE: 05/07/20 [facility] - LAB PAGE 1 RUN TIME: 902 Specimen Inquiry RUN USER: INTERFACE --------PATIENT: GIOVANNY CALDERÓN LOC: EMETEIRO U #: [id number] AGE/SX: 44/F ROOM: RE05/02/20REG DR: Giuliano Abdullahi MD : 75 BED: DIS: STATUS: [facility] TLOC: -------- SPEC #: [id number] RECD: 05/02/20 STATUS: JACQUELINE REJonathan #: [id number] INA: 05/02/[address] [facility] DR: Giuliano Abdullahi MD ENTERED: 05/02/20 SP TYPE: SURG OTHR DR: Candace Dhaliwal OPTICAL TECHNICIAN ORDERED: PATHGM4/2, PATH SPEC, H E STAIN/2 [...] and its performance characteristics determined by the [facility]. It has not been cleared or approved by the US Food and Drug Administration. The FDA has determined that such clearance or approval is not necessary. The test is used for clinical purposes. It should not be regarded as investigational or for research. [facility] is certified under CLIA-88 (Clinical Laboratory Improvement [...] METAPLASIA, DYSPLASIA, OR MALIGNANCY IS IDENTIFIED CPT: 68396 x2, 84638 CONTINUED ON NEXT PAGE --------RUN DATE: 05/07/20 [facility] - LAB PAGE 2 RUN TIME: 902 Specimen Inquiry RUN USER: INTERFACE --------SPEC #: [id number] PATIENT: GIOVANNY CALDERÓN #[id number] (Continued) GROSS DESCRIPTION Received are two containers [...] MD 05/07/20 0903 -------- END OF REPORT [id number] 15:00:00 Test Item Value Reference Range Interpretation Comments GLUBED (test code = GLUBED) 148 MG/DL 70-105 H COVID 19 Asymptomatic IH [id number] 13:12:00 Test Item Value Reference Range Interpretation [...] clinical signs and symptomsconsist ent with COVID-19. [id number] 18:47:00 Test Item Value Reference Range Interpretation Comments Eosinophils # (test code 0.1 See_Comment [A utomated message] The = Eosinophils #) system [facility] h generated this result tra nsmitted reference range : <=0.5. The reference r gulshan was not used to int erpret this result as normal/abnormal . [id number] 18:47:00 Test Item Value Reference Range Interpretation Comments Monocytes (test code = Monocytes) 4.4 2.0-12.0 [facility]YwhvynpEAYGQQYCYP5405-64-61 18:47:00 Test Item Value Reference Range Interpretation Comments Eosinophils (test code = 1.6 See_Comment [A utomated message] The Eosinophils) system which ge nerated this result tra nsmitted reference range : <=4.0. The reference r gulshan was not used to int erpret this result as normal/abnormal . [facility] HeightsSucizcdKCHAGXLXOG3428-03-[facility] 18:47:00 Test Item Value Reference Range Interpretation Comments Basophils (test code = 0.2 See_Comment [Aut omated message] The Basophils) system which ge nerated this result tra nsmitted reference range : <=1.0. The reference r gulshan was not used to int erpret this result as normal/abnormal . [facility] HeightsVseagddOYDGCKKWUT0025-31-17 18:47:00 Test Item Value Reference Range Interpretation Comments Lymphocytes (test code = Lymphocytes) 23.0 20.0-40.0 [facility] HeightsUgwottoFZMMQRBJXU2777-83-17 18:47:00 Test Item Value Reference Range Interpretation Comments Neutrophils # (test code = Neutrophils 5.3 1.5-8.1 #) [facility] HeightsLwtwtifAODLGOKMWG3459-81-58 18:47:00 Test Item Value Reference Range Interpretation Comments Lymphocytes # (test code = Lymphocytes 1.7 1.0-5.5 #) [facility] HeightsEammlvvNUYNCGHTDU1839-78-88 18:47:00 Test Item Value Reference Range Interpretation Comments Monocytes # (test code 0.3 See_Comment [Aut omated message] The = Monocytes #) system which generated this result tra nsmitted reference range : <=0.8. The reference r gulshan was not used to int erpret this result as normal/abnormal . [facility] HeightsQdsmsxgKZBFOHVCON8364-04-17 18:47:00 Test Item Value Reference Range Interpretation Comments Segs (test code = Segs) 70.8 45.0-75.0 [facility] HeightsStsavneTQYFTBKAPJ2174-01-65 18:47:00 Test Item Value Reference Range Interpretation Comments MCHC (test code = MCHC) 32.7 32.0-36.0 [facility] HeightsZhicoeeRRXTRRMKKJ6034-75-23 18:47:00 Test Item Value Reference Range Interpretation Comments Hct (test code = Hct) 39.9 36.0-48.0 [facility]TopwemrBPNYBFWDMJ3018-27-16 18:47:00 Test Item Value Reference Range Interpretation Comments MCV (test code = MCV) 87.0 80.0-98.0 [facility] HospitalIxmyylpJJLZBCZEYO3966-85-60 18:47:00 Test Item Value Reference Range Interpretation Comments MCH (test code = MCH) 28.5 pg 27.0-31.0 [facility] HeightsXodifvlGTXJQVTDDK0356-46-57 18:47:00 Test Item Value Reference Range Interpretation Comments RDW (test code = RDW) 14.8 11.5-14.5 [facility] HospitalOooycguIIVXHJBRJZ4313-21-14 18:47:00 Test Item Value Reference Range Interpretation Comments Hgb (test code = Hgb) 13.0 12.0-16.0 [facility] HospitalWvvzljyYEBKALXLIS2997-31-12 18:47:00 Test Item Value Reference Range Interpretation Comments Platelet (test code = Platelet) 197 133-450 [facility] HeightsCaxqlgrZMIPEZWDBR8770-52-90 18:47:00 Test Item Value Reference Range Interpretation Comments MPV (test code = MPV) 10.2 7.4-10.4 [facility] HospitalBvscfjgOACJTROPNI5701-39-83 18:47:00 Test Item Value Reference Range Interpretation Comments RBC (test code = RBC) 4.59 4.20-5.40 [facility] HospitalIruzwfwNKPBLVSBFS4898-46-87 18:47:00 Test Item Value Reference Range Interpretation Comments WBC (test code = WBC) 7.4 3.7-10.4 [facility] DGIFKTITK8378-27-56 18:47:00 Test Item Value Reference Range Interpretation Comments Hgb A1C (test code = Hgb A1C) 6.2 [facility] JUFEV4594[facility]63[facility]34 18:47:00 Test Item Value Reference Range Interpretation Comments eGFR (test code = eGFR) 100 [facility]CHE[facility] IHEWT9199-08-25 18:47:00 Test Item Value Reference Range Interpretation Comments Globulin (test code = Globulin) 3.8 2.7-4.2 [facility] [id number] 18:47:00 Test Item Value Reference Range Interpretation Comments A/G Ratio (test code = A/G Ratio) 1.0 1 0.7-1.6 [facility] [id number] 18:47:00 Test Item Value Reference Range Interpretation Comments Bili Total (test code = Bili Total) 0.3 0.2-1.3 [facility]2019-04-03 18:47:00 Test Item Value Reference Range Interpretation Comments AGAP (test code = AGAP) 10.8 10.0-20.0 [facility]2019-04-03 18:47:00 Test Item Value Reference Range Interpretation Comments B/C Ratio (test code = B/C Ratio) 23 1 6-25 [facility]2019-04-03 18:47:00 Test Item Value Reference Range Interpretation Comments Potassium Lvl (test code = Potassium 3.8 3.5-5.1 Lvl) [facility]2019-04-03 18:47:00 Test Item Value Reference Range Interpretation Comments Sodium Lvl (test code = Sodium Lvl) 143 135-145 [facility]2019-04-03 18:47:00 Test Item Value Reference Range Interpretation Comments Chloride Lvl (test code = Chloride Lvl) 108 95-109 [facility]2019-04-03 18:47:00 Test Item Value Reference Range Interpretation Comments AST (test code = AST) 23 See_Comment [Auto mated message] The system which ge nerated this result transmit octaviano reference range : <=37. The reference range was not used to interpr et this result as laurie l/abnormal. [facility]2019-04-03 18:47:00 Test Item Value Reference Range Interpretation Comments Alk Phos (test code = Alk Phos) 88 39-136 [facility]2019-04-03 18:47:00 Test Item Value Reference Range Interpretation Comments ALT (test code = ALT) 21 See_Comment [Auto mated message] The system which ge nerated this result transmit octaviano reference range : <=65. The reference range was not used to interpr et this result as laurie l/abnormal. [facility]2019-04-03 18:47:00 Test Item Value Reference Range Interpretation Comments CO2 (test code = CO2) 28 24-32 [facility]2019-04-03 18:47:00 Test Item Value Reference Range Interpretation Comments Calcium Lvl (test code = Calcium Lvl) 8.8 8.5-10.5 [facility]2019-04-03 18:47:00 Test Item Value Reference Range Interpretation Comments Albumin Lvl (test code = Albumin Lvl) 3.7 3.5-5.0 [facility]2019-04-03 18:47:00 Test Item Value Reference Range Interpretation Comments Total Protein (test code = Total 7.5 6.4-8.4 Protein) [facility]2019-04-03 18:47:00 Test Item Value Reference Range Interpretation Comments Glucose Lvl (test code = Glucose Lvl) 84 70-99 [facility]2019-04-03 18:47:00 Test Item Value Reference Range Interpretation Comments Creatinine Lvl (test code = Creatinine 0.74 0.50-1.40 Lvl) [facility]2019-04-03 18:47:00 Test Item Value Reference Range Interpretation Comments BUN (test code = BUN) 17 7-22 [facility], CHEST, 2 [id number] 15:49:00Reason for exam:- >coughShould this be performed at the bedside?->NoFINAL REPORT Chest, PA and lateral. History: Cough. Comparison: 12/07/2017. Discu ssion: Mild cardiomegaly. The lungs are clear without evidence of consolidation or effusion. There are no acute osseous abnormalities. The soft tissues are unremarkable. IMPRESSION: No acute cardiopulmonary abnormality. Signed: Joseph Vang [facility]ITAL[facility] Verified Date/Time: 08/21/2018 15:49:59 Reading Location: [facility] Reading Room [id number] 10:53:00 Test Item Value Reference Range Interpretation Comments AGAP (test code = AGAP) 11.8 10.0-20.0 [facility]KxrylydQWQSCACZBQPS6287-09-12 10:53:00 Test Item Value Reference Range Interpretation Comments Chloride Lvl (test code = Chloride Lvl) 109 95-109 [facility] CenterAzpdihgQRNLDLMOWDCL1529-48-15 10:53:00 Test Item Value Reference Range Interpretation Comments Potassium Lvl (test code = Potassium 3.8 3.5-5.1 Lvl) [facility] CenterBrknjjpHAXNWWSXZQSA2049-15-49 10:53:00 Test Item Value Reference Range Interpretation Comments Sodium Lvl (test code = Sodium Lvl) 145 135-145 [facility] CenterYhdccguUXZJUPRDVNGG8956-50-89 10:53:00 Test Item Value Reference Range Interpretation Comments Calcium Lvl (test code = Calcium Lvl) 8.1 8.5-10.5 [facility] CenterSwmgnbwNFXABSPGUVBT5302-31-53 10:53:00 Test Item Value Reference Range Interpretation Comments Creatinine Lvl (test code = Creatinine 0.51 0.50-1.40 Lvl) [facility] CenterRmufjhyNTRVILXCILBV1160-37-49 10:53:00 Test Item Value Reference Range Interpretation Comments eGFR (test code = eGFR) 118 [facility] CenterWpbpdzlBMTARGEQKZCL0937-41-75 10:53:00 Test Item Value Reference Range Interpretation Comments CO2 (test code = CO2) 28 24-32 [facility] CenterDlgjjryPWWSNSUOETEW0709-58-10 10:53:00 Test Item Value Reference Range Interpretation Comments BUN (test code = BUN) 11 7-22 [facility] CenterArlcgcmYBUXPKVULEFI9852-38-27 10:53:00 Test Item Value Reference Range Interpretation Comments Glucose Lvl (test code = Glucose Lvl) 104 70-99 [facility] HeightsJzfehacNINIYAZKAG3123-60-83 10:53:00 Test Item Value Reference Range Interpretation Comments Lymphocytes # (test code = Lymphocytes 1.1 1.0-5.5 #) [facility] HeightsPfvxkncAIRFNHNOYQ2974-32-73 10:53:00 Test Item Value Reference Range Interpretation Comments Neutrophils # (test code = Neutrophils 5.5 1.5-8.1 #) [facility] HeightsJjzoydbEPNUHCVTGQ8837-18-96 10:53:00 Test Item Value Reference Range Interpretation Comments Eosinophils # (test code 0.1 See_Comment [A utomated message] The = Eosinophils #) system whic h generated this result tra nsmitted reference range : <=0.5. The reference r gulshan was not used to int erpret this result as normal/abnormal . [facility] HeightsMfdfekrXXAUMLVMKK8593-39-55 10:53:00 Test Item Value Reference Range Interpretation Comments Monocytes # (test code 0.3 See_Comment [Aut omated message] The = Monocytes #) system which generated this result tra nsmitted reference range : <=0.8. The reference r gulshan was not used to int erpret this result as normal/abnormal . [facility] HeightsVgwttlaORLKSGUJEH6367-47-67 10:53:00 Test Item Value Reference Range Interpretation Comments Lymphocytes (test code = Lymphocytes) 15.3 20.0-40.0 [facility] HeightsCxamypmWHDCGILPJW5143-95-09 10:53:00 Test Item Value Reference Range Interpretation Comments Segs (test code = Segs) 78.5 45.0-75.0 [facility] HeightsAwegetnZZPFWIDNMC1144-79-78 10:53:00 Test Item Value Reference Range Interpretation Comments Eosinophils (test code = 1.2 See_Comment [A utomated message] The Eosinophils) system which ge nerated this result tra nsmitted reference range : <=4.0. The reference r gulshan was not used to int erpret this result as normal/abnormal . [facility] HeightsCqvfpveWMPEGJOZBZ9611-26-28 10:53:00 Test Item Value Reference Range Interpretation Comments Monocytes (test code = Monocytes) 4.3 2.0-12.0 [facility] HeightsPfcpcttPUZHHGVYBB2082-41-76 10:53:00 Test Item Value Reference Range Interpretation Comments Basophils (test code = 0.7 See_Comment [Aut omated message] The Basophils) system which ge nerated this result tra nsmitted reference range : <=1.0. The reference r gulshan was not used to int erpret this result as normal/abnormal . [facility] HeightsVjocblpUPWTBTQZYE8764-42-86 10:53:00 Test Item Value Reference Range Interpretation Comments MCHC (test code = MCHC) 32.5 32.0-36.0 [facility] HeightsUrpvizqEQFWANMFFJ3226-01-41 10:53:00 Test Item Value Reference Range Interpretation Comments RDW (test code = RDW) 15.1 11.5-14.5 [facility] HeightsVlsgnmpBXAKFBARWC7733-63-09 10:53:00 Test Item Value Reference Range Interpretation Comments Platelet (test code = Platelet) 188 133-450 [facility] HeightsCiakithWSQADUBRDJ9341-50-92 10:53:00 Test Item Value Reference Range Interpretation Comments MPV (test code = MPV) 9.4 7.4-10.4 [facility] HeightsOnlvnoyUQQOVABVZB6968-22-77 10:53:00 Test Item Value Reference Range Interpretation Comments RBC (test code = RBC) 3.87 4.20-5.40 [facility] HeightsAnlvwijFXJQPBHYRK6948-37-89 10:53:00 Test Item Value Reference Range Interpretation Comments Hgb (test code = Hgb) 11.0 12.0-16.0 [facility] HeightsHdlpotxQITLZTRCLT4184-55-74 10:53:00 Test Item Value Reference Range Interpretation Comments MCV (test code = MCV) 87.6 80.0-98.0 [facility] HeightsMfkxjdsKUFNYVQYOW9522-94-56 10:53:00 Test Item Value Reference Range Interpretation Comments MCH (test code = MCH) 28.5 pg 27.0-31.0 [facility] HeightsNrzkjwtIBOQJCBERL9978-83-88 10:53:00 Test Item Value Reference Range Interpretation Comments Hct (test code = Hct) 33.9 36.0-48.0 [facility] HeightsPvybwyrHJTBGUAXVP3099-21-69 10:53:00 Test Item Value Reference Range Interpretation Comments WBC (test code = WBC) 7.0 3.7-10.4 [facility]2019-01-01 11:52:00 Test Item Value Reference Range Interpretation Comments Alk Phos (test code = Alk Phos) 87 39-136 [facility]2019-01-01 11:52:00 Test Item Value Reference Range Interpretation Comments eGFR (test code = eGFR) 110 [facility]2019-01-01 11:52:00 Test Item Value Reference Range Interpretation Comments Chloride Lvl (test code = Chloride Lvl) 107 95-109 [facility]2019-01-01 11:52:00 Test Item Value Reference Range Interpretation Comments Sodium Lvl (test code = Sodium Lvl) 142 135-145 [facility]2019-01-01 11:52:00 Test Item Value Reference Range Interpretation Comments Potassium Lvl (test code = Potassium 4.0 3.5-5.1 Lvl) [facility]2019-01-01 11:52:00 Test Item Value Reference Range Interpretation Comments Creatinine Lvl (test code = Creatinine 0.63 0.50-1.40 Lvl) [facility]2019-01-01 11:52:00 Test Item Value Reference Range Interpretation Comments ALT (test code = ALT) 18 See_Comment [Auto mated message] The system which ge nerated this result transmit octaviano reference range : <=65. The reference range was not used to interpr et this result as laurie l/abnormal. [facility]2019-01-01 11:52:00 Test Item Value Reference Range Interpretation Comments Bili Total (test code = Bili Total) 1.0 0.2-1.3 [facility]2019-01-01 11:52:00 Test Item Value Reference Range Interpretation Comments AST (test code = AST) 29 See_Comment [Auto mated message] The system which ge nerated this result transmit octaviano reference range : <=37. The reference range was not used to interpr et this result as laurie l/abnormal. [facility]2019-01-01 11:52:00 Test Item Value Reference Range Interpretation Comments Total Protein (test code = Total 7.5 6.4-8.4 Protein) [facility]2019-01-01 11:52:00 Test Item Value Reference Range Interpretation Comments Albumin Lvl (test code = Albumin Lvl) 3.2 3.5-5.0 [facility]2019-01-01 11:52:00 Test Item Value Reference Range Interpretation Comments CO2 (test code = CO2) 25 24-32 [facility]2019-01-01 11:52:00 Test Item Value Reference Range Interpretation Comments BUN (test code = BUN) 13 7-22 [facility]2019-01-01 11:52:00 Test Item Value Reference Range Interpretation Comments Glucose Lvl (test code = Glucose Lvl) 143 70-99 [facility]2019-01-01 11:52:00 Test Item Value Reference Range Interpretation Comments Calcium Lvl (test code = Calcium Lvl) 8.3 8.5-10.5 [facility]2019-01-01 11:52:00 Test Item Value Reference Range Interpretation Comments B/C Ratio (test code = B/C Ratio) 21 1 6-25 [facility]2019-01-01 11:52:00 Test Item Value Reference Range Interpretation Comments Globulin (test code = Globulin) 4.3 2.7-4.2 [facility]2019-01-01 11:52:00 Test Item Value Reference Range Interpretation Comments A/G Ratio (test code = A/G Ratio) 0.7 1 0.7-1.6 [facility]2019-01-01 11:52:00 Test Item Value Reference Range Interpretation Comments AGAP (test code = AGAP) 14.0 10.0-20.0 [facility] HeightsFmkclopVTIOZDMLMF0134-32-27 11:52:00 Test Item Value Reference Range Interpretation Comments Hgb (test code = Hgb) 12.6 12.0-16.0 [facility] HeightsEzpudmoNOMRSATWWB6506-32-05 11:52:00 Test Item Value Reference Range Interpretation Comments MCV (test code = MCV) 88.3 80.0-98.0 [facility] HeightsRjjszxbLLGFPLKYSQ9596-04-60 11:52:00 Test Item Value Reference Range Interpretation Comments MCHC (test code = MCHC) 32.8 32.0-36.0 [facility] HeightsZlankfmHOFWPNUGDE6916-93-38 11:52:00 Test Item Value Reference Range Interpretation Comments MCH (test code = MCH) 29.0 pg 27.0-31.0 [facility] HeightsNeodsquVHQWONRVNZ9258-33-66 11:52:00 Test Item Value Reference Range Interpretation Comments RBC (test code = RBC) 4.34 4.20-5.40 [facility] HeightsHafgeuySDYUGZIZQT3766-39-71 11:52:00 Test Item Value Reference Range Interpretation Comments WBC (test code = WBC) 9.2 3.7-10.4 [facility] HeightsDxvotfwTVFDMDPERC9151-55-34 11:52:00 Test Item Value Reference Range Interpretation Comments MPV (test code = MPV) 10.1 7.4-10.4 [facility] HeightsMirzgtfTGONPTHMXD8697-34-41 11:52:00 Test Item Value Reference Range Interpretation Comments Platelet (test code = Platelet) 211 133-450 [facility] HeightsWjbzkhuDDEWEAFWWB8205-87-86 11:52:00 Test Item Value Reference Range Interpretation Comments RDW (test code = RDW) 15.2 11.5-14.5 [facility] HeightsFjvxhbuYEBAKQPFOH6782-66-26 11:52:00 Test Item Value Reference Range Interpretation Comments Hct (test code = Hct) 38.3 36.0-48.0 [facility] HeightsDjnryjdCPOGSIAMRL2289-45-94 11:52:00 Test Item Value Reference Range Interpretation Comments PTT (test code = PTT) 37.5 s 22.9-35.8 [facility] HeightsQedosomKYWKGLIWYL2636-38-49 11:52:00 Test Item Value Reference Range Interpretation Comments PT (test code = PT) 15.4 s 12.0-14.7 [facility] HeightsOzdxvfyXIPSKDBSDL0984-09-04 11:52:00 Test Item Value Reference Range Interpretation Comments INR (test code = INR) 1.24 1 0.85-1.17 [facility] HeightsFbovdqjQQJUYWLFFR8022-33-68 11:52:00 Test Item Value Reference Range Interpretation Comments Basophils (test code = 0.2 See_Comment [Aut omated message] The Basophils) system which ge nerated this result tra nsmitted reference range : <=1.0. The reference r gulshan was not used to int erpret this result as normal/abnormal . [facility] HeightsHnipwnnBZAFROQZTZ5390-11-69 11:52:00 Test Item Value Reference Range Interpretation Comments Eosinophils (test code = 0.3 See_Comment [A utomated message] The Eosinophils) system which ge nerated this result tra nsmitted reference range : <=4.0. The reference r gulshan was not used to int erpret this result as normal/abnormal . [facility] HeightsIlttguwVZBMQBVXGE5603-18-01 11:52:00 Test Item Value Reference Range Interpretation Comments Monocytes (test code = Monocytes) 3.7 2.0-12.0 [facility] HeightsWzelvrwWYCSTCYXMT6392-06-92 11:52:00 Test Item Value Reference Range Interpretation Comments Lymphocytes (test code = Lymphocytes) 13.6 20.0-40.0 [facility] HeightsEgmdmzoSVXKTEKWYA9447-47-09 11:52:00 Test Item Value Reference Range Interpretation Comments Neutrophils # (test code = Neutrophils 7.6 1.5-8.1 #) [facility] HeightsZvykunxOUFAYMGBIL0408-88-92 11:52:00 Test Item Value Reference Range Interpretation Comments Lymphocytes # (test code = Lymphocytes 1.2 1.0-5.5 #) [facility] HeightsTlzxluaBPHQBCBOGG6595-54-83 11:52:00 Test Item Value Reference Range Interpretation Comments Monocytes # (test code 0.3 See_Comment [Aut omated message] The = Monocytes #) system which generated this result tra nsmitted reference range : <=0.8. The reference r gulshan was not used to int erpret this result as normal/abnormal . [facility] HeightsRzblohdBXMQMGLFDJ3031-11-33 11:52:00 Test Item Value Reference Range Interpretation Comments Segs (test code = Segs) 82.2 45.0-75.0 [facility]EhucxyiGYIPNN3684-92-58 11:52:00 Test Item Value Reference Range Interpretation Comments CHD Risk (test code = CHD Risk) 2.88 1 3.90-5.80 [facility] HospitalOghnwaiCHRVQO2716-11-39 11:52:00 Test Item Value Reference Range Interpretation Comments VLDL (test code = VLDL) 18 1 [facility] HospitalUqpoiqdIUWYEB0959-05-94 11:52:00 Test Item Value Reference Range Interpretation Comments HDL (test code = HDL) 48 [facility] HospitalUpbigsyJPYYAB1958-43-44 11:52:00 Test Item Value Reference Range Interpretation Comments LDL (Calculated) (test code = LDL 72 (Calculated)) [facility]DBIV5972[facility] 11:52:00 Test Item Value Reference Range Interpretation Comments Trig (test code = Trig) 92 [facility] HospitalCoavsevMZISSO4778-17-60 11:52:00 Test Item Value Reference Range Interpretation Comments Chol (test code = Chol) 138 [facility] KZQUMZMGF2618-98-31 11:52:00 Test Item Value Reference Range Interpretation Comments Hgb A1C (test code = Hgb A1C) 6.1 [facility] AND [id number] 11:52:00 Test Item Value Reference Range Interpretation Comments UA Ketones (test code = UA Ketones) Negative [facility] AND [id number] 11:52:00 Test Item Value Reference Range Interpretation Comments UA Bili (test code = Negative *NA*(06/13/18 UA Bili) 5:52 AM) [facility] AND [id number] 11:52:00 Test Item Value Reference Range Interpretation Comments UA Blood (test code = Moderate *ABN*(06/13/18 UA Blood) 5:52 AM) [facility] AND [id number] 11:52:00 Test Item Value Reference Range Interpretation Comments UA Nitrite (test code Negative (06/13/18 5:52 = UA Nitrite) AM) [facility] AND [id number] 11:52:00 Test Item Value Reference Range Interpretation Comments UA Urobilinogen (test code = UA <=1.0 mg/dL 0.1-1.0 Urobilinogen) [facility] AND [id number] 11:52:00 Test Item Value Reference Range Interpretation Comments UA Sq Epi (test code = UA Sq Occasional /LPF Epi) [facility] AND [id number] 11:52:00 Test Item Value Reference Range Interpretation Comments UA WBC (test code = 1 See_Comment [Automa octaviano message] The UA WBC) system which ge nerated this result transmit octaviano reference range : <=5. The reference range was not used to interpr et this result as laurie l/abnormal. [facility] [id number] 11:52:00 Test Item Value Reference Range Interpretation Comments UA Leuk Est (test Negative (06/13/18 5:52 code = UA Leuk Est) AM) [facility] AND [id number] 11:52:00 Test Item Value Reference Range Interpretation Comments UA Bacteria (test code = UA Occasional /HPF Bacteria) [facility] AND [id number] 11:52:00 Test Item Value Reference Range Interpretation Comments UA RBC (test code = 7 See_Comment [Automa octaviano message] The UA RBC) system which ge nerated this result transmit octaviano reference range : <=2. The reference range was not used to interpr et this result as laurie l/abnormal. [facility] AND [id number] 11:52:00 Test Item Value Reference Range Interpretation Comments UA pH (test code = UA pH) 6.0 1 5.0-8.0 [facility] AND [id number] 11:52:00 Test Item Value Reference Range Interpretation Comments UA Turbidity (test code = Clear (06/13/18 5:52 UA Turbidity) AM) [facility] [facility] AND [id number] 11:52:00 Test Item Value Reference Range Interpretation Comments UA Color (test code = UA Color) Straw [facility] AND [id number] 11:52:00 Test Item Value Reference Range Interpretation Comments UA Protein (test code Negative (06/13/18 5:52 = UA Protein) AM) [facility] AND [id number] 11:52:00 Test Item Value Reference Range Interpretation Comments UA Glucose (test code Negative *NA*(06/13/18 = UA Glucose) 5:52 AM) [facility] AND [id number] 11:52:00 Test Item Value Reference Range Interpretation Comments UA Spec Grav (test code = UA Spec 1.019 1 Grav) [facility]] FOLATE, [id number] 10:35:01 Test Item Value Reference Range Interpretation Comments Folate Level (test code = 2284-8) 14.1 ng/ml >=3.0 [facility][QL] VITAMIN D, 25-HYDROXY, LC/MS/[id number] 10:35:01 Test Item Value Reference Range Interpretation Comments Vitamin D, 25-OH, 17.5 ng/ml 30.0-100.0 Reference range is based Total (test code on recommen dations in the = Vitamin D, EndocrineSociet y Clinical 25-OH, Total) Practice Guide line ([facility] Clin Endocrinol Qvlmr6249;96:19 11-1930) [facility][H] Vit [id number] 10:35:01 Test Item Value Reference Range Interpretation [...] the Food and Drug Administration. Performed At: [facility] [address] [place], [place] [id number] ra Latasha GARCIA Ph:[phone] [facility][H] Vitamin E [id number] 10:35:01 Test Item Value Reference Range Interpretation Comments Alpha-Tocoph 7.9 mg/L 7.0-25.1 katrin (test code = Alpha-Tocoph katrin) Gamma-Tocoph 2.6 mg/L 0.5-5.5 Reference inter vals for alpha and katrin (test gamma-tocophero ldetermined from code = National Health and Nutrition Gamma-Tocoph ExaminationSurv ey, 2910-9335. katrin) Individuals wit h alpha-tocopherol levelsless than 5.0 mg/L are considered jammie min E deficient.This test was developed and its perform ance characteristics determined by [facility]. It has not been cleared orapproved by [facility] Food and Drug Administration. Performed At: [facility] [place], [place] [id number] Pagan MD Ph:[phone] [facility][QL] CBC (INCLUDES DIFF/PLT)2018-01-06 10:09:01 Test Item Value Reference Range Interpretation Comments WBC (test code = 6690-2) 7.1 {K/CMM} 3.7-10.4 RBC (test code = 789-8) 4.30 {M/CMM} 4.20-5.40 Hgb (test code = 718-7) 12.3 g/dl 12.0-16.0 Hct (test code = 85706-9) 38.0 % 36.0-48.0 MCV (test code = 787-2) 88.4 fL 80.0-98.0 MCH (test code = 785-6) 28.5 pg 27.0-31.0 MCHC (test code = 786-4) 32.3 g/dl 32.0-36.0 RDW; Above High Threshold (test 15.9 % 11.5-14.5 code = 788-0) Platelet (test code = 43016-2) 222 {K/CMM} 133-450 Mean Platelet Volume; Above High 10.7 fL 7.4-10.4 Threshold (test code = 24979-7) [facility][QL] [id number] 10:09:01 Test Item Value Reference Range Interpretation Comments Segmented Neutrophils (test code 70.9 % 45.0-75.0 = 58048-9) Monocytes (test code = 57393-3) 4.2 % 2.0-12.0 Lymphocytes (test code = 47922-6) 22.0 % 20.0-40.0 Eosinophils (test code = 42633-9) 2.5 % 0.0-4.0 Basophils (test code = 706-2) 0.4 % 0.0-1.0 Segs-Bands # (test code = 5.0 {K/CMM} 1.5-8.1 76677-4) Lymphocytes # (test code = 1.6 {K/CMM} 1.0-5.5 66454-7) Monocytes # (test code = 73763-9) 0.3 {K/CMM} 0.0-0.8 Eosinophils # (test code = 0.2 {K/CMM} 0.0-0.5 05921-9) [facility]QL] PTH, INTACT (WITHOUT CALCIUM)2018-01-06 10:09:01 Test Item Value Reference Range Interpretation Comments Parathyroid Hormone Intact (test 64.9 pg/ml 18.4-80.1 code = 2731-8) [facility][QL] CMP [id number] 10:09:01 Test Item Value Reference Range Interpretation Comments Sodium Level 143 {mEq/l} 135-145 (test code = 2951-2) Potassium Level 4.6 {mEq/l} 3.5-5.1 (test code = 2823-3) Chloride Level 107 {mEq/l} 95-109 (test code = 5-0) Carbon Dioxide 30 {mEq/l} 24-32 (test code = 2027-9) AGAP (test code = 10.6 {mEq/l} 10.0-20.0 55372-5) Glucose Lvl; 108 mg/dl 70-99 Adult reference range Above High values reflect the Threshold (test clinical adri delinesof the code = 2345-7) [employer]. Creatinine Lvl 0.60 mg/dl 0.50-1.40 (test code = 2160-0) Blood Urea 12 mg/dl 7-22 Nitrogen (test code = 3094-0) BUN/Creatinine 20 6-25 Ratio (test code = 3097-3) Total Protein 7.3 g/dl 6.4-8.4 (test code = 2885-2) Albumin Lvl (test 3.6 g/dl 3.5-5.0 code = 1751-7) Globulin (test 3.7 g/dl 2.7-4.2 code = 70600-8) A/G Ratio (test 1.0 0.7-1.6 code = 1759-0) Calcium Level 8.7 mg/dl 8.5-10.5 Total (test code = 09243-5) ALT (test code = 27 u/l 0-65 1743-4) AST (test code = 32 u/l 0-37 82473-5) Bili Total (test 0.4 mg/dl 0.2-1.3 code = 1975-2) Alk Phos (test 82 u/l 39-136 code = 1783-0) eGFR (test code = 113 The eGFR i s calculated 67193-7) {ML/MIN/1.7} using the CKD-E PI formula. In [...] be multiplied by t he estimated BMI. [facility]] FOLATE, [id number] 10:09:01 Test Item Value Reference Range Interpretation Comments Folate Level (test code = 2284-8) 11.3 ng/ml >=3.0 [facility]] IRON, [id number] 10:09:01 Test Item Value Reference Range Interpretation Comments Iron (test code = 2498-4) 59 ug/dL 30-160 [facility]] LIPID [id number] 10:09:01 Test Item Value Reference Range Interpretation Comments Chol (test code = 2093-3) 125 mg/dl <=199 Trig; Above High Threshold (test 154 mg/dl <=149 code = 2571-8) HDL Cholesterol; Below Low 36 mg/dl >=61 Threshold (test code = 2085-9) CHD Risk; Below Low Threshold (test 3.47 3.90-5.80 code = 36534-9) LDL (test code = 42256-5) 58 mg/dl <=99 VLDL (test code = VLDL) 31 [facility][QLH] VITAMIN [id number] 10:09:01 Test Item Value Reference Range Interpretation Comments Vitamin B12 Level (test code = 655 pg/ml 254-1320 2132-9) [facility][QL] TSH, 3RD GENERATION W/REFLEX TO [id number] 10:09:01 Test Item Value Reference Range Interpretation Comments TSH (test code = 12950-7) 0.846 {uIU/ml} 0.360-3.740 [facility][QLH] HEMOGLOBIN [id number] 10:09:01 Test Item Value Reference Range Interpretation Comments Hemoglobin A1c; Above High Threshold 6.4 % <=5.6 (test code = 4548-4) [facility][QL] VITAMIN D, 25-HYDROXY, LC/MS/[id number] 10:09:01 Test Item Value Reference Range Interpretation Comments Vitamin D, 25-OH, 16.6 ng/ml 30.0-100.0 Reference range is based Total (test code on recommen dations in the = Vitamin D, EndocrineSociet y Clinical 25-OH, Total) Practice Guide line ([facility] Clin [facility]ocrinol Qvmqa4373;96:19 11-1930) [facility][H] Vitamin E [id number] 10:09:01 Test Item Value Reference Range Interpretation Comments Alpha-Tocoph 5.7 mg/L 7.0-25.1 katrin (test code = Alpha-Tocoph katrin) Gamma-Tocoph 2.4 mg/L 0.5-5.5 Reference inter vals for alpha and katrin (test gamma-tocophero ldetermined from code = National Health and Nutrition Gamma-Tocoph ExaminationSurv ey, 8795-1811. katrin) Individuals wit h alpha-tocopherol levelsless than 5.0 mg/L are considered jammie min E deficient.This test was developed and its perform ance characteristics determined by [facility]. It has not been cleared orapproved by [facility] Food and Drug Administration. Performed At: [facility] [address] [place], [place] [id number] Murdock MD Ph :[phone] [facility][H] Vit [id number] 10:09:01 Test Item Value Reference Range Interpretation Comments Vitamin A 22.1 ug/dL 33.1-100.0 Reference inter vals for vitamin Level (test A determined fr om code = NationalHealth and Nutrition Vitamin A Examination [place], Level) 3011-6865.Indiv iduals with vitamin A less than 20 ug/dL areconsidered v itamin A deficient and t hose with serumconcentrat ions less than 10 ug/dL are co nsidered severelydeficie nt.This test was developed and i ts performance characteristics determined by [facility]. It has not been cleared orappro mamie by the Food and Drug Administration. Performed At: [address] [id number] zan Murdock MD Ph:[phone] [facility]] VITAMIN B1, WHOLE [id number] 10:09:01 Test Item Value Reference Range Interpretation Comments Vitamin B1 128.4 66.5-200.0 This test was d eveloped and its Level (test nmol/L performance code = characteristics determined by Vitamin B1 [facility]. It has not been Level) cleared orappro mamie by the Food and Drug Administration. Performed At: [address] [id number] zan Murodck MD Ph:[phone] [facility] [id number] 13:30:00 Test Item Value Reference Range Interpretation Comments CULTURE ([facility]) (test code = 1095) No growth POCT-GLUCOSE [id number] 08:21:00 Test Item Value Reference Range Interpretation Comments POC-GLUCOSE METER 99 mg/dL 70-110 TESTED AT [facility] 6720 ([facility]) (test code = [facility] [address] 1538) POCT-GLUCOSE [id number] 06:14:00 Test Item Value Reference Range Interpretation Comments POC-GLUCOSE METER 105 mg/dL 70-110 TESTED AT [facility] 67[address] ([facility]) (test code = [facility] 1538) [address] BASIC METABOLIC [id number] 05:56:00 Test Item Value Reference Range Interpretation [...] PATIEN TS. CBC W/PLT COUNT & AUTO [id number] 05:15:00 Test Item Value Reference Range Interpretation [...] PERCENT (BEAKER) (test code = 2801) POCT-GLUCOSE [id number] 00:23:00 Test Item Value Reference Range Interpretation Comments POC-GLUCOSE METER 111 mg/dL 70-110 H TESTED AT [facility] 6720 (BEAKER) (test code = KENNETH Kinney [facility] 1538) [address] MR, MRA, BRAIN, WITHOUT [id number] 20:13:00Reason for exam:->Ischemic Stroke EvaluationFINAL REPORT MRA Head CLINICAL HISTORY: Stroke TECHNIQUE: MRA of the head utilizing 3-D mzgo-jn-bbsnra technique, with 3-D reconstructions. COMPARISON: None FINDINGS: There is no evidence of intracranial aneurysm, focal stenosis, or major branch vessel occlusion. There is a origin of the right posterior cerebral artery. IMPRESSION: No evidence for a major [place] proximal branch vessel occlusion. MRA Neck CLINICAL HISTORY: Stroke TECHNIQUE: MRA of the neck utilizing 2-D and 3-D zcmk-ay-mkeghk technique, with 3-D reconstructions. COMPARISON: None FINDINGS: The carotid arteries in the neck are patent including their bifurcations. There is antegrade flow in the vertebral arteries in the neck. IMPRESSION: No evidence of hemodynamically significant stenosis in the cervical carotid or vertebral arteries by NASCET criteria. Signed: Madeleine Mendoza MDReport Verified Date/Time: 12/08/2017 20:13:50 Reading Location: [facility] Radiology Reading Room MR, MRA, NECK, WITHOUT IV [id number] 20:13:00Reason for exam:->Ischemic Stroke EvaluationFINAL REPORT MRA Head CLINICAL HISTORY: Stroke TECHNIQUE: MRA of the head utilizing 3-D hnbh-lk-cjhdqg technique, with 3-D reconstructions. COMPARISON: None FINDINGS: There is no evidence of intracranial aneurysm, focal stenosis, or major branch vessel occlusion. There is a o rigin of the right posterior cerebral artery. IMPRESSION: No evidence for a major [place] proximal branch vessel occlusion. MRA Neck CLINICAL HISTORY: Stroke TECHNIQUE: MRA of the neck utilizing 2-D and 3-D xxel-wv-gejhxq technique, with 3-D reconstructions. COMPARISON: None FINDINGS: The carotid arteries in the neck are patent including their bifurcations. There is antegrade flow in the vertebral arteries in the neck. IMPRESSION: No evidence of hemodynamically significant stenosis in the cervical carotid or vertebral arteries by NASCET criteria. Signed: Madeleine Mendoza Verified Date/Time: 12/08/2017 20:13:50 Reading Location: [facility] Radiology Reading Room MR, BRAIN, WITHOUT [id number] 20:02:00Reason for exam:->StrokeWhat is the patient's sedation [...] Mendoza Verified Date/Time: 12/08/2017 20:02:46 Reading Location: [facility] Radiology Reading Room POCT- GLUCOSE [id number] 15:23:00 Test Item Value Reference Range Interpretation Comments POC-GLUCOSE METER 106 mg/dL 70-110 TESTED AT [place] [address] ([facility]) (test code = [place]H [place] 1538) [address] HEMOGLOBIN [id number] 11:57:00 Test Item Value Reference Range Interpretation Comments HEMOGLOBIN A1C ([facility]) (test code = 6.6 % 4.3-6.1 H 368) FastingTROPONIN [id number] 09:50:00 Test Item Value Reference Range Interpretation Comments TROPONIN I ([facility]) (test code = 397) < ng/mL [...] acidosis, acute neurological disease, and persistent tachyarrhythmia.POCT-GLUCOSE [id number] 06:23:00 Test Item Value Reference Range Interpretation Comments POC-GLUCOSE METER 110 mg/dL 70-110 TESTED AT [place] [address] ([facility]) (test code = [place]NETH [place] 1538) [address] POCT-GLUCOSE [id number] 06:15:00 Test Item Value Reference Range Interpretation Comments POC-GLUCOSE METER 149 mg/dL 70-110 H TESTED AT [place] [address] ([facility]) (test code = KENNETH Kinney [place] 1538) [address] VITAMIN B12 AND [id number] 05:50:00 Test Item Value Reference Range Interpretation Comments VITAMIN B12 ([facility]) (test code = 688 pg/mL 213-816 774) FOLATE ([facility]) (test code = 362) 12.1 ng/mL >=7.0 TSH/FREE T4 IF [id number] 05:29:00 Test Item Value Reference Range Interpretation Comments THYROID STIMULATING HORMONE 0.66 uIU/mL 0.35-4.94 (BEAKER) (test code = 772) BASIC METABOLIC [id number] 05:11:00 Test Item Value Reference Range Interpretation [...] NOT APPLICABLE FOR DIALYSIS PATIEN TS. FastingLIPID [id number] 05:11:00 Test Item Value Reference Range Interpretation [...] 160-189 Very High >=190 FastingRAPID DRUG SCREEN, [id number] 04:34:00 Test Item Value Reference Range Interpretation [...] situations. Chain of custody not maintained. Some zsyy-uwm-qbaeihw medications, as well as adulterants, may cause inaccurate results. Clinical correlation should be applied. A more comprehensive drug screen or confirmation of a detected drug may be performed upon request. URINALYSIS W/ [id number] 04:09:00 Test Item Value Reference Range Interpretation [...] 2795) Collection CBC W/PLT COUNT & AUTO [id number] 03:54:00 Test Item Value Reference Range Interpretation [...] PERCENT (BEAKER) (test code = 2801) TROPONIN [id number] 23:56:00 Test Item Value Reference Range Interpretation [...] acute neurological disease, and persistent tachyarrhythmia.HEPATIC FUNCTION [id number] 23:49:00 Test Item Value Reference Range Interpretation [...] code = 17 U/L 6-55 347) PROTHROMBIN [id number] 23:40:00 Test Item Value Reference Range Interpretation [...] mechanical heart valves.CBC W/PLT COUNT & AUTO [id number] 23:27:00 Test Item Value Reference Range Interpretation [...] = 2801) RAD, CHEST, 1 VIEW, NON [id number] 21:51:00Reason for exam:->Stroke work up.Is the patient ?->UnknownShould this be performed at the bedside?->YesFINAL REPORT Clinical History: Stroke workup Comparison Study: None Findings: The cardiac silhouette is enlarged. The lungs are within normal limits. The pleural spaces are clear. No significant bony or soft tissue abnormalities are seen. Impression: Cardiomegaly. Signed: Wellington Steve MDReport Verified Date/Time: 12/07/2017 21:51:29 Reading Location: [address] Consult Reading Room POCT-GLUCOSE [id number] 11:34:00 Test Item Value Reference Range Interpretation Comments POC-GLUCOSE METER 84 mg/dL 70-110 TESTED AT [facility] 6720 (BEAKER) (test code = KENNETH Kinney [facility] [address] 1538) [id number] 08:58:00 Test Item Value Reference Range Interpretation Comments PHOSPHORUS (BEAKER) (test code = 4.4 mg/dL 2.3-4.7 604) [id number] 08:58:00 Test Item Value Reference Range Interpretation Comments MAGNESIUM (BEAKER) (test code = 2.3 mg/dL 1.6-2.6 627) BASIC METABOLIC [id number] 08:58:00 Test Item Value Reference Range Interpretation [...] APPLICABLE FOR DIALYSIS PATIEN TS. HEPATIC FUNCTION [id number] 08:58:00 Test Item Value Reference Range Interpretation [...] code = 17 U/L 6-55 347) POCT-GLUCOSE [id number] 08:20:00 Test Item Value Reference Range Interpretation Comments POC-GLUCOSE METER 143 mg/dL 70-110 H TESTED AT [facility] 6720 (BEAKER) (test code = KENNETH [place] 1538) [address] PROTHROMBIN [id number] 05:55:00 Test Item Value Reference Range Interpretation Comments PROTIME (BEAKER) (test code = 13.4 seconds 11.7-14.7 759) INR (BEAKER) (test code = 370) 1.0 <=5.9 RECOMMENDED COUMADIN/WARFARIN INR THERAPY RANGESSTANDARD DOSE: 2.0 - 3.0 Includes: PROPHYLAXIS for venous thrombosis, systemic embolization; TREATMENT for venous thrombosis and/or pulmonary embolus.HIGH RISK: Target INR is 2.5-3.5 for patients with mechanical heart valves.POCT-GLUCOSE [id number] 20:32:00 Test Item Value Reference Range Interpretation Comments POC-GLUCOSE METER 90 mg/dL 70-110 TESTED AT [place] [address] ([facility]) (test code = [facility] [address] 1538) POCT-GLUCOSE [id number] 16:47:00 Test Item Value Reference Range Interpretation Comments POC-GLUCOSE METER 79 mg/dL 70-110 TESTED AT [place] [address] ([facility]) (test code = [facility] [address] 1538) POCT-GLUCOSE [id number] 07:47:00 Test Item Value Reference Range Interpretation Comments POC-GLUCOSE METER 97 mg/dL 70-110 TESTED AT [place] [address] ([facility]) (test code = [facility] [address] 1538) TROPONIN [id number] 07:02:00 Test Item Value Reference Range Interpretation Comments TROPONIN I ([facility]) (test code = 397) < ng/mL [...] failure, acidosis, acute neurological disease, and persistent tachyarrhythmia.[id number] 07:00:00 Test Item Value Reference Range Interpretation Comments PHOSPHORUS (BEAKER) (test code = 5.0 mg/dL 2.3-4.7 H 604) [id number] 07:00:00 Test Item Value Reference Range Interpretation Comments MAGNESIUM (BEAKER) (test code = 1.9 mg/dL 1.6-2.6 627) BASIC METABOLIC [id number] 07:00:00 Test Item Value Reference Range Interpretation [...] APPLICABLE FOR DIALYSIS PATIEN TS. HEPATIC FUNCTION [id number] 07:00:00 Test Item Value Reference Range Interpretation [...] code = 21 U/L 6-55 347) PROTHROMBIN [id number] 06:31:00 Test Item Value Reference Range Interpretation Comments PROTIME (BEAKER) (test code = 14.0 seconds 11.7-14.7 759) INR (BEAKER) (test code = 370) 1.1 <=5.9 RECOMMENDED COUMADIN/WARFARIN INR THERAPY RANGESSTANDARD DOSE: 2.0 - 3.0 Includes: PROPHYLAXIS for venous thrombosis, systemic embolization; TREATMENT for venous thrombosis and/or pulmonary embolus.HIGH RISK: Target INR is 2.5-3.5 for patients with mechanical heart valves.CBC W/PLT COUNT & AUTO [id number] 06:28:00 Test Item Value Reference Range Interpretation [...] = 2801) CREATINE KINASE (CK), TOTAL AND [id number] 01:39:00 Test Item Value Reference Range Interpretation Comments CREATINE KINASE TOTAL ([facility]) 55 U/L 29-200 (test code = 380) CREATINE KINASE-MB (BEAKER) (test 1.1 ng/mL 0.0-6.6 code = 750) CREATINE KINASE-MB INDEX (AKER) 2.0 % (test code = 395) CK-MB Reference Range:<6.7 Normal6.7-10.0 Borderline>10.0 AbnormalTROPONIN [id number] 01:39:00 Test Item Value Reference Range Interpretation Comments TROPONIN I ([facility]) (test code = 397) < ng/mL [...] acidosis, acute neurological disease, and persistent tachyarrhythmia.POCT-GLUCOSE [id number] 12:39:00 Test Item Value Reference Range Interpretation Comments POC-GLUCOSE METER 80 mg/dL 70-110 TESTED AT [place] [address] ([facility]) (test code = [facility] [address] 1538) POCT-GLUCOSE [id number] 07:07:00 Test Item Value Reference Range Interpretation Comments POC-GLUCOSE METER 100 mg/dL 70-110 TESTED AT [place] [address] ([facility]) (test code = [facility] 1538) [address] POCT-GLUCOSE [id number] 21:12:00 Test Item Value Reference Range Interpretation Comments POC-GLUCOSE METER 138 mg/dL 70-110 H TESTED AT [place] [address] ([facility]) (test code = [facility] 1538) [address] POCT-GLUCOSE [id number] 12:04:00 Test Item Value Reference Range Interpretation Comments POC-GLUCOSE METER 113 mg/dL 70-110 H TESTED AT [facility] 6720 (BEAKER) (test code = [place]H [place] 1538) [address] BASIC METABOLIC [id number] 04:26:00 Test Item Value Reference Range Interpretation [...] PATIEN TS. CBC W/PLT COUNT & AUTO [id number] 04:02:00 Test Item Value Reference Range Interpretation [...] (test code = 2801) CLOSTRIDIUM DIFFICILE TOXIN [id number] 13:44:00 Test Item Value Reference Range Interpretation [...] a positive result is not recommended.CT, CTANGIO [id number] 06:59:00Addendum BeginsREPORT STATUS:A Three-dimensional post intravenous contrast images of the cerebral vasculature were created on a free standing workstation for better visualization of cerebral vascular anatomy and pathology. Signed: Skip Rodas MDReport Verified Date/Time: 04/12/2017 06:59:20 Reading Location: [address] Ortho Consult Reading RoomAddendum EndsFINAL REPORT [...] MDReport Verified Date/Time: 04/07/2017 01:12:44 Reading Location: [place] [address] Ortho Consult Reading Room BASIC METABOLIC [id number] 05:37:00 Test Item Value Reference Range Interpretation [...] 0-0 (BEAKER) (test code = 413) POCT-GLUCOSE [id number] 17:55:00 Test Item Value Reference Range Interpretation Comments POC-GLUCOSE METER 111 mg/dL 70-110 H TESTED AT [place] [address] ([facility]) (test code = KENNETH Kinney [facility] 1538) [address] POCT-GLUCOSE [id number] 12:02:00 Test Item Value Reference Range Interpretation Comments POC-GLUCOSE METER 100 mg/dL 70-110 TESTED AT [place] [address] ([facility]) (test code = [employer] [facility] 1538) [address] POCT-GLUCOSE [id number] 07:50:00 Test Item Value Reference Range Interpretation Comments POC-GLUCOSE METER 110 mg/dL 70-110 TESTED AT [place] [address] ([facility]) (test code = [employer] [facility] [facility] [facility] 1538) [address] POCT-GLUCOSE [id number] 16:56:00 Test Item Value Reference Range Interpretation Comments POC-GLUCOSE METER 104 mg/dL 70-110 TESTED AT [place] [address] ([facility]) (test code = KENNETH Kinney [facility] 1538) [address] POCT-GLUCOSE [id number] 12:22:00 Test Item Value Reference Range Interpretation Comments POC-GLUCOSE METER 84 mg/dL 70-110 TESTED AT [facility] 6720 (BEAKER) (test code = [place] [address] 1538) HEMOGLOBIN [id number] 08:46:00 Test Item Value Reference Range Interpretation Comments HEMOGLOBIN A1C (BEAKER) (test code = 6.2 % 4.3-6.1 H 368) BASIC METABOLIC [id number] 06:42:00 Test Item Value Reference Range Interpretation [...] PATIEN TS. CBC W/PLT COUNT & AUTO [id number] 06:19:00 Test Item Value Reference Range Interpretation [...] PERCENT (BEAKER) (test code = 2801) POCT-GLUCOSE [id number] 12:07:00 Test Item Value Reference Range Interpretation Comments POC-GLUCOSE METER 110 mg/dL 70-110 [facility] (test code = [place]H [place] 1538) [address] CT, BRAIN, WITHOUT [id number] 06:55:00FINAL REPORT Clinical history : Decreased alertnessComparison [...] MDReport Verified Date/Time: 04/09/2017 06:55:25 Reading Location: [address] Ortho ConsultReading Room BASIC METABOLIC [id number] 05:57:00 Test Item Value Reference Range Interpretation [...] PATIEN TS. CBC W/PLT COUNT & AUTO [id number] 04:54:00 Test Item Value Reference Range Interpretation [...] PERCENT (BEAKER) (test code = 2801) POCT-GLUCOSE [id number] 01:34:00 Test Item Value Reference Range Interpretation Comments POC-GLUCOSE METER 92 mg/dL 70-110 TESTED AT [place] [address] (BEAKER) (test code = KENNETH Kinney [facility] [address] 1538) POCT-GLUCOSE [id number] 19:20:00 Test Item Value Reference Range Interpretation Comments POC-GLUCOSE METER 85 mg/dL 70-110 TESTED AT [place] [id number] ([facility] (test code = KENNETH Kinney [facility] [address] 1538) CT, BRAIN, WITHOUT [id number] 15:47:00FINAL REPORT CT head without contrast. Comparisons: [...] evidence of acute intracranial abnormality. Signed: [facility] Verified Date/Time: 04/08/2017 15:47:42 POCT-GLUCOSE [id number] 12:44:00 Test Item Value Reference Range Interpretation Comments POC-GLUCOSE METER 94 mg/dL 70-110 TESTED AT [place] [address] [facility] (test code = KENNETH Kinney [facility] [address] 1538) BASIC METABOLIC [id number] 05:05:00 Test Item Value Reference Range Interpretation [...] PATIEN TS. CBC W/PLT COUNT & AUTO [id number] 04:28:00 Test Item Value Reference Range Interpretation [...] NEUTROPHILS ABSOLUTE COUNT 5.22 K/ L 1.56-6.13 ([facility]) (test code = 670) LYMPHOCYTES ABSOLUTE COUNT 1.37 K/ L 1.18-3.74 (AKER) (test code = 414) MONOCYTES ABSOLUTE COUNT (BEAKER) 0.34 K/ L 0.24-0.36 (test code = 415) EOSINOPHILS ABSOLUTE COUNT 0.13 K/ L 0.04-0.36 (AKER) (test code = 416) BASOPHILS ABSOLUTE COUNT (BEAKER) 0.01 K/ L 0.01-0.08 (test code = 417) IMMATURE GRANULOCYTES-RELATIVE 1 % 0-1 PERCENT ([facility]) (test code = 2801) POCT-GLUCOSE [id number] 17:32:00 Test Item Value Reference Range Interpretation Comments POC-GLUCOSE METER 90 mg/dL 70-110 TESTED AT [place] [address] ([facility]) (test code = KENNETH Kinney [facility] [address] 1538) POCT-GLUCOSE [id number] 12:02:00 Test Item Value Reference Range Interpretation Comments POC-GLUCOSE METER 91 mg/dL 70-110 TESTED AT [place] [address] ([facility]) (test code = KENNETH Kinney [facility] [address] 1538) EEG AWAKE AND [id number] 11:38:00Reason for exam:->R/O subclinical seizuresDATE OF EE63-14-3173APAE OF REPORT: 03-21-4652CDF: [id number]: 17- 1801Start time: 09:54Stop time: 10:18ICD-10: G 93.40CPT Code: 90345 HISTORY: 41 y.o. female with history of morbid obesity, DM2 whopresented today to OSH with R sided facial droop and LUE weakness . Patient was evaluated at OSH where patient was started with tPA after normal CT. Now with acute encephalopathy MEDICATIONS THAT COULDAFFECT EEG: TECHNICAL SUMMARY: This is a digital EEG recorded with 32 input channels on a Cuff-Protect system and then reviewed with bipolar and [...] consider additional EEG recordings. Javi Mae MDNeurophysiologyFell [id number] Note: I personally reviewed this EEG record in its entirety and I agree with the details of this report. Kitty Montejo MD, PhDEpilepsy Attending CREATINE KINASE (CK), TOTAL AND [id number] 09:35:00 Test Item Value Reference Range Interpretation Comments CREATINE KINASE TOTAL (BEAKER) 52 U/L 29-200 (test code = 380) CREATINE KINASE-MB (BEAKER) (test 1.2 ng/mL 0.0-6.6 code = 750) CREATINE KINASE-MB INDEX (BEAKER) 2.3 % (test code = 395) CK-MB Reference Range:<6.7 Normal6.7-10.0 Borderline>10.0 AbnormalTROPONIN [id number] 09:31:00 Test Item Value Reference Range Interpretation [...] failure, acidosis, acute neurological disease, and persistent tachyarrhythmia.[id number] 09:28:00 Test Item Value Reference Range Interpretation Comments AMMONIA (BEAKER) (test code = 348) 34 mol/L 18-72 TSH/FREE T4 IF [id number] 04:28:00 Test Item Value Reference Range Interpretation Comments THYROID STIMULATING HORMONE 1.12 uIU/mL 0.35-4.94 (BEAKER) (test code = 772) VITAMIN B12 AND [id number] 04:28:00 Test Item Value Reference Range Interpretation Comments VITAMIN B12 (BEAKER) (test code = 417 pg/mL 213-816 774) FOLATE (BEAKER) (test code = 362) 13.6 ng/mL >=7.0 CBC W/PLT COUNT & AUTO [id number] 03:27:00 Test Item Value Reference Range Interpretation [...] = 2801) CREATINE KINASE (CK), TOTAL AND [id number] 03:11:00 Test Item Value Reference Range Interpretation Comments CREATINE KINASE TOTAL (BEAKER) 71 U/L 29-200 (test code = 380) CREATINE KINASE-MB (BEAKER) (test 1.5 ng/mL 0.0-6.6 code = 750) CREATINE KINASE-MB INDEX (BEAKER) 2.1 % (test code = 395) CK-MB Reference Range:<6.7 Normal6.7-10.0 Borderline>10.0 AbnormalFastingFastingTROPONIN [id number] 03:11:00 Test Item Value Reference Range Interpretation [...] acute neurological disease, and persistent tachyarrhythmia.FastingBASIC METABOLIC [id number] 03:04:00 Test Item Value Reference Range Interpretation [...] NOT APPLICABLE FOR DIALYSIS PATIEN TS. FastingLIPID [id number] 03:04:00 Test Item Value Reference Range Interpretation [...] 160-189 Very High >=190 Fasting HEPATIC FUNCTION [id number] 03:04:00 Test Item Value Reference Range Interpretation [...] Notes Date/Time Note Provider Source 2021-12-29 19:20:00-00:00 [facility] ([facility]) EMERGENCY PROVIDER REPORT REPORT#:[id number] REPORT STATUS: Signed DATE:12/29/21 TIME: 1919 PATIENT: GIOVANNY CALDERÓN UNIT #: [id number] ROOM: BED: AGE: 46 SEX: F PCP PHYS: No Primary or Family Ph ysician SERVICE AUTHOR: Elizabeth Shelton MD * ALL edits or amendments must be made on the H[employer]/computer document * HPI-Abd Pain F 40 and Over General Initial Greet Date/Time 12/29/[address] Steel sleeve gastrectomy 1 year [...] notes she was previously seen in an [facility] emergency department on Tuesday and told she [...] Result Date Time Pulse Ox 98 12/29 2101 B/P 129/72 12/29 2101 B/P Mean 91 12/29 2101 Temp 36.5 12/29 210 Pulse 56 12/29 210 Resp 16 12/29 210 O2 Delivery Room [...] % (Auto) (20.5 - 51.1 %) 23.9 Linn % (Auto) (1.7 - 9.3 %) 4.7 Eos % (Auto) (0.0 - 7.0 %) 1.2 Baso % (Auto) (0 - 2.5 %) 0.2 Neut # (Auto) (1.80 - 7.70 x10 3/uL) 4.60 Lymph # (Auto) (1.00 - 4.80 x10 3/uL) 1.58 Linn # (Auto) (0.00 - 0.80 x10 3/uL) 0.31 Eos # (Auto) (0.00 - 0.45 x10 3/uL) 0.08 Baso # (Auto) (0.0 - 0.20 x10 3/uL) 0.01 Urines Urine Color (YELLOW DISCRIPT) YELLOW Urine Appearance (CLEAR DISCRIPT) CLEAR Urine pH (5.0 - 9.0) 7.0 Ur Specific Beth[place] (1.005 - 1.030) <=1.005 L Urine Protein [...] SCAN - CT ABD PELVIS W/CONT 12/29 8065 Report Impression - Status: SIGNED Entered: 12/29/2021 1836 IMPRESSION: 1. Comparison made to 2021. 2. [...] I advised pt to follow up with cardi ology. )( Re-Evaluation/Progress #1 )( Re-Eval Status Improved, [...] 1,000 ML X1ED STA 12/29 1435 DC / IV 12/29 1436 1526 Gastrointestinal Drugs Sig/Iliana Start time Last Medication Dose Route Stop Time Status Admin Ondansetron HCl 4 MG X1ED STA 12/29 1435 DC IV 12/29 1436 1527 Consultation Consultation Referral/Consult Name Giuliano Abdullahi MD Requested Call Time 1840 Requested Call Date 12/29/21 Call Returned Time 184 Call Returned Date 12/29/21 Free Text Consult [...] B/P 129/72 12/29 2102 B/P Mean 91 12/29 2102 Temp 36.5 12/29 2102 Pulse 56 12/29 2102 Resp 16 12/29 2102 O2 Delivery Room air 12/29 1540 All [...] Giuliano Abdullahi MD Follow-Up: 2-3 Days Address: [address] [place] [address] [address] [place] [address] Provider Referral: Chandler Greenberg MD Follow-Up: 2-3 Days Notes: Or the [facility] of your choice. Address: [facility] [address] [place] [address] [place] [address] Discharge Note I have spoken with the [...] symptoms should prompt an immediate return to [facility] or the closest emergency department or a call to 911. Electronically Signed by Elizabeth Shelton MD on at 1133 RPT #:[id number] END OF REPORT 2021-12-29 13:57:00-00:00 [id number] [facility] [address] [place] [address] PATIENT NAME: GIOVANNY CALDERÓN ADMIT DATE: 12/29/21 ACCOUNT NO: [id number] ROOM NO: AGE: 46 REPORT TYPE: eELECTROCARDIOGRAM SEX: F ADMITTING PHYSICIAN: ATTENDING PHYSICIAN: Order: [id number] Test Reason : Test Date/Time Stamp: TueDec [...] An terior leads Confirmed by AVIVA HOLBROOK ([id number]) on 01/08/2022 3 :08:34 PM Referred By: Self Referred Confirmed by:AVIVA DANIELLE Electronically Signed by Aviva Holbrook MD on at 1508 PATIENT NAME: GIOVANNY CALDERÓN ACCOUNT #: BP [id number] 2021-06-07 11:59:00-00:00 [facility] ([facility]) EMERGENCY PROVIDER REPORT REPORT#:[id number] REPORT STATUS: Signed DATE:06/07/21 TIME: 1159 PATIENT: GIOVANNY CALDERÓN UNIT #: [id number] ROOM: [facility] BED: AGE: 45 SEX: F PCP PHYS: Undefined Provider SERVICE AUTHOR: Sabino Mata * ALL edits or amendments must be made on the H[employer]zing/computer document * HPI-Abd Pain F 40 and [...] 1227: [Embedded Image Not Available] Laboratory Tests: 06/07 1227 Chemistry Sodium (136 - 145 mmol/L) 142 [...] (Auto) (20.5 - 51.1 %) 18.5 L Linn % (Auto) (1.7 - 9.3 %) 5.8 Eos % (Auto) (0.0 - 7.0 %) 0.7 Baso % (Auto) (0 - 2.5 %) 0.1 Neut # (Auto) (1.80 - 7.70 x10 3/uL) 5.25 Lymph # (Auto) (1.00 - 4.80 x10 3/uL) 1.30 Linn # (Auto) (0.00 - 0.80 x10 3/uL) 0.41 Eos # (Auto) (0.00 - 0.45 x10 3/uL) 0.05 Baso # (Auto) (0.0 - 0.20 x10 3/uL) 0.01 Urines Urine Color (YELLOW DISCRIPT) DARK YELLOW Urine Appearance (CLEAR DISCRIPT) CLEAR Urine pH (5.0 - 9.0) 6.0 Ur Specific Bethany (1.005 - 1.030) >=1.030 Urine Protein (NEGATIVE [...] 2262 mGy-cm CTDI: 36 mGy Impression By: Jose - Fernando Hauser M.D. Lab Imaging Statement [...] Consultation Consultation Referral/Consult Name Giuliano Abdullahi MD Director Staffing Called Bariatric Surgery Free Text Consult Notes [...] Decision Admit Admit Physician Name Bryant Colby MD Request Time 1429 Request Date 06/07/21 )( Admission Accepts Yes )( Accepted Time 1429 )( Accepted Date 06/07/21 Discharge/Care Plan Counseled Regarding Diagnosi s, Lab results, Imaging studies, Need for admission Rx Drug Database Reviewed Yes, Single rx for tyl enol with codeine in 04/2021. Low abuse risk potential. at 1512 RPT #:[id number] END OF REPORT 2021-05-10 10:19:00-00:00 [id number] [facility] [address] [place] [address] PATIENT NAME: GIOVANNY CALDERÓN ADMIT DATE: 07/04/20 ACCOUNT NO: [id number] ROOM NO: [facility] AGE: 45 REPORT TYPE: OPERATIVE REPORT SEX: [...] to postoperative pain. PROCEDURE IN DETAIL: After t he laparoscopic sleeve gastrectomy was completed, I passed [...] wall. Dictated By: Giuliano Abdullahi MD WT: OP:PSLOANE/CEDRIC/MARY KAY Conf#: [id number]/DID#: [id number] Authenticated by Giuliano Abdullahi MD On 01:58:11 PM at 0158 PATIENT NAME: GIOVANNY CALDERÓN ACCOUNT #: BP [id number] 2021-05-10 10:19:00-00:00 [id number] [place] [address] PATIENT NAME: GIOVANNY CALDERÓN ADMIT DATE: 07/04/20 ACCOUNT NO: [id number] ROOM NO: [facility] AGE: 45 REPORT TYPE: OPERATIVE REPORT SEX: [...] biopsy. 4. Esophagogastroduodenoscopy SURGEON: Giuliano Abdullahi MD TRANSPORTATION SUPERVISOR: Migdalia Salvador, licensed surgical rn. ESTIMATED BLOOD LOSS: Minimal. ANESTHESIA: General endotracheal [...] the left lateral subcostal area PATIENT NAME: GIOVANNY CALDERÓN ACCOUNT #: BP [id number] with Marcaine. We made a 5 mm [...] terior to the esophagus. We inserted a 40-Malawian bougie into the mouth, passed it down [...] 2-[address] [address] a rmwoon-qd-jkzim suture, bringing the right and left crura [...] general anesthesia, extubated and taken to the ACU in stable condition. Prior to completion of the sleeve gastrectomy, we removed a small piece of the liver edge from the left lateral segment of the liver using the L igaSure device. The liver specimen was sent to pathology. Dictated By: Giuliano Abdullahi MD WT: OP:P.DUSTIN/CEDRIC/MARY KAY Conf#: [id number]/DID#: [id number] Authenticated and Edited by Giuliano bowie MD On 06/08/21 1:58:53 PM PATIENT NAME: GIOVANNY CALDERÓN ACCOUNT #: BP [id number] at 0201 PATIENT NAME: GIOVANNY CALDERÓN ACCOUNT #: BP [id number] 2021-05-06 09:02:00-00:00 [phone] [facility] [address] [place] [address] PATIENT NAME: GIOVANNY CALDERÓN ADMIT DATE: 07/04/20 ACCOUNT NO: [id number] ROOM NO: P.0576 AGE: 45 REPORT TYPE: [...] medications. Dictated By: Giuliano Abdullahi MD WT: DS:P.DUSTIN/CEDRIC/MARY KAY Conf#: [id number]/DID#: [id number] Authenticated by Giuliano Abdullahi MD On 01:58:09 PM at 0158 PATIENT NAME: GIOVANNY CALDERÓN ACCOUNT #: BP [id number] 2021-05-04 16:02:00-00:00 5518-5760 [facility] [address] [place] [address] PATIENT NAME: GIOVANNY CALDERÓN ADMIT DATE: 07/04/20 ACCOUNT NO: [id number] ROOM NO: P.0576 AGE: 45 REPORT TYPE: [...] rrhea and no constipation. No PATIENT NAME: GIOVANNY CALDERÓN ACCOUNT #: BP [id number] dysuria. No urinary incontinence or urinary rete [...] SpO2 99% on facemask. HEAD AND NECK: [place] conjunctivae, anicteric scle agusto. Negative JVD. Negative [...] prophylaxis. Dictated By: Alisa Beaver MD WT: CON:TONYA/JERZY/MARY KAY Conf#: [id number]/DID#: [id number] PATIENT NAME: GIOVANNY CALDERÓN ACCOUNT #: B [id number] Authenticated and Edited by Alisa Beaver MD On 05/05/21 4:28:18 PM Electronically Signed by Alisa Beaver MD on 04/14 08/31 at 0429 PATIENT NAME: GIOVANNY CALDERÓN ACCOUNT #: BP [id number] 2021-04-30 17:24:00-00:00 [id number] [place] [address] PATIENT NAME: GIOVANNY CALDERÓN ADMIT DATE: ACCOUNT NO: [id number] ROOM NO: AGE: 45 REPORT TYPE: eELECTROCARDIOGRAM SEX: F ADMITTING PHYSICIAN: Giuliano Abdullahi MD ATTENDING PHYSICIAN: Giuliano Abdullahi MD Order: [id number] Test Reason : SDS Test Date/Time Stamp: TueApr 30 2021 17:24:04 Blood Pressure : / mmHG Vent. Rate : 067 BPM Atrial Rate : 067 BPM P-R Int : 130 ms QRS Dur : 098 ms QT Int : 418 ms P-R-T Axes : 023 028 027 degre es QTc Int : 441 ms Normal sinus rhythm Normal ECG No previous ECGs available Confirmed by CHANDLER GREENBERG MD ([id number]) on 04/14 10:49:25 AM Referred By: Giuliano Abdullahi Confirmed by:TRISHA GREENBERG MD at 1041 PATIENT NAME: GIOVANNY CALDERÓN ACCOUNT #: BP [id number] 2020-11-04 11:48:00-00:00 [facility] ([facility]) Hospitalist Progress Note REPORT#:[id number] REPORT STATUS: Signed DATE:11/04/20 TIME: 1148 PATIENT: GIOVANNY CALDERÓN UNIT #: [id number] ROOM/BED: B.160-W : 75 AGE: 45 SEX: F ATTEND: Brody Dacosta MD ADM AUTHOR: Rosalia Calle MD * ALL edits or amendments must be made on the el [employer]/computer document * Subjective Patient reports: No: complaints. [...] 20 134/74 93.8 99 Room air 11/03 2033 98.8 78 20 129/85 99.3 97 Room air 11/03 1513 98.8 78 20 112/72 85.0 98 Room air 24 hour I O ending at 0700: 11/04 0700 11/03 1900 Intake Total 900 Output Total Balance 900 Intake, Oral 900 Number 1 Bowel Movements Number Voids 1 PATIENT WEIGHT: Weight (lb): 370 Weight (oz): 0 Weight (kg): 167.419798 Physical Exam General appearance: alert, awake Head/Eyes: atraumatic, EOMI, PERRLA Cardiovascular: normal heart sounds, regular rat e rhythm Respiratory: clear to auscultation, no distress Abdomen: non-tender, normal bowel sounds, soft Extremities: moves all, no edema Neuro/WATER CONSERVATION SPECIALIST: abnormal speech, focal weakness, aler t, oriented [...] air MRI with the outpatient neurologist in [place]. -Lipid profile, TSH, B12, folic acid, ESR Aic -MRA the head and neck Hypertension -Permissive hypertension as mentioned above DM2 -A1c -Lipitor Morbid obesity -Advised on weight loss - Front End Application Developer consult QUALITY: DVT AND GI PROPHYLAXIS order ed; PPI and SCD. CI for Pharmacological prophylaxis for now HOME MEDS RECONCILED and ordered. Advance Care Planning and Code Status Discussed: Full Code Disposition: No interval change in assessment and plan patien t awaiting awaiting placement Electronically Signed by Rosalia Calle MD on 10/12 10/31 at 1148 RPT #:[id number] END OF REPORT 2020-11-03 11:12:00-00:00 [facility] Hospitalist Progress Note REPORT#:[id number] REPORT STATUS: Signed DATE:11/03/20 TIME: 1112 PATIENT: GIOVANNY CALDERÓN UNIT #: [id number] ROOM/BED: B.160-W : 75 AGE: 45 SEX: F ATTEND: Aj Dacosta MD ADM AUTHOR: Tyesha Dacosta * [...] (lb): 370 Weight (oz): 0 Weight (kg): 167.187549 Medications: Active Meds + DC'd Last 24 [...] sounds, soft Extremities: moves all, no edema Neuro/WATER CONSERVATION SPECIALIST: abnormal speech, focal weakness, aler t, oriented X 3 Skin: dry, intact, no rash Results Findings/Data: Laboratory Tests 11/0342 1946 1613 1131 Chemistry POC Glucose (70 [...] air MRI with the outpatient neurologist in [place]. -Lipid profile, TSH, B12, folic acid, ESR Aic -MRA the head and neck Hypertension -Permissive hypertension as mentioned above DM2 -A1c -Lipitor Morbid obesity -Advised on weight loss - Front End Application Developer consult QUALITY: DVT AND GI PROPHYLAXIS order ed; PPI and SCD. CI for Pharmacological prophylaxis for now HOME MEDS RECONCILED and ordered. Advance Care Planning and Code Status Discussed: Full Code Disposition: No interval change in assessment and plan patien t awaiting awaiting placement at 1113 RPT #:[id number] END OF REPORT 2020-11-02 10:47:00-00:00 [facility] ([facility]) Hospitalist Progress Note REPORT#:[id number] REPORT STATUS: Signed DATE:11/02/20 TIME: 1046 PATIENT: GIOVANNY CALDERÓN UNIT #: [id number] ROOM/BED: B.160-W : 75 AGE: 45 SEX: F ATTEND: Aj Dacosta MD ADM AUTHOR: Tyesha Dacosta * ALL edits or amendments must be made on the [employer]/computer document * Subjective Free Text Subj Notes [...] (lb): 370 Weight (oz): 0 Weight (kg): 167.865002 Medications: Active Meds + DC'd Last 24 [...] sounds, soft Extremities: moves all, no edema Neuro/WATER CONSERVATION SPECIALIST: abnormal speech, focal weakness, aler t, oriented [...] air MRI with the outpatient neurologist in [place]. -Lipid profile, TSH, B12, folic acid, ESR Aic -MRA the head and neck Hypertension -Permissive hypertension as mentioned above DM2 -A1c -Lipitor Morbid obesity -Advised on weight loss - Front End Application Developer consult QUALITY: DVT AND GI PROPHYLAXIS order ed; PPI and SCD. CI for Pharmacological prophylaxis for now HOME MEDS RECONCILED and ordered. Advance Care Planning and Code Status Discussed: Full Code Disposition: Pending rehab placement by case management await [facility] insurance authorization at 1048 RPT #:[id number] END OF REPORT 2020-11-01 10:54:00-00:00 [facility] Hospitalist Progress Note REPORT#:[id number] REPORT STATUS: Signed DATE:11/01/20 TIME: 1054 PATIENT: GIOVANNY CALDERÓN UNIT #: [id number] ROOM/BED: B.160-W : 75 AGE: 45 SEX: [...] Room air 11/01 0419 66 98 11/01 0323 97.9 64 20 163/82 109.1 97 CPAP 10/31 2346 98.1 70 20 122/72 88.4 96 CPAP 10/31 2336 73 99 10/31 2336 99 Room air 10/31 2021 97.7 71 16 121/80 93.6 98 10/31 [...] (lb): 370 Weight (oz): 0 Weight (kg): 167.499566 Medications: Active Meds + DC'd Last 24 [...] sounds, soft Extremities: moves all, no edema Neuro/WATER CONSERVATION SPECIALIST: abnormal speech, focal weakness, aler t, oriented X 3 Skin: dry, intact, no rash Results Findings/Data: Laboratory Tests 11/01 1122 Chemistry POC Glucose (70 - 119 MG/DL) 106 111 110 149 H Radiology data: Recent Impressions: CAT SCAN - CT HEAD/BRAIN W/O CONT 10/31 2254 Report Impression - Status: SIGNED Entered: 10/31/2020 2311 IMPRESSION: 1. No CT evidence of acute [...] air MRI with the outpatient neurologist in [place]. -Lipid profile, TSH, B12, folic acid, ESR Aic -MRA the head and neck Hypertension -Permissive hypertension as mentioned above DM2 -A1c -Lipitor Morbid obesity -Advised on weight loss - Front End Application Developer consult QUALITY: DVT AND GI PROPHYLAXIS order ed; PPI and SCD. CI for Pharmacological prophylaxis for now HOME MEDS RECONCILED and ordered. Advance Care Planning and Code Status Discussed: Full Code Disposition: Pending rehab placement by case management await ing insurance authorization Neurology final recs at 1059 [facility] #:[id number] END OF REPORT 2020-11-01 01:38:00-00:00 [phone] [place] [address] PATIENT NAME: GIOVANNY CALDERÓN ADMIT DATE: 1 ACCOUNT NO: [id number] ROOM NO: B.160 AGE: 45 REPORT TYPE: PROGRESS NOTE SEX: F ADMITTING PHYSICIAN:Rosalia Calle MD ATTENDING PHYSICIAN:Rosalia Calle MD DATE: 10/31/2020 INPATIENT NEUROLOGY PROGRESS NOTE SUBJECTIVE: This is a 45-yea r-old morbidly obese female with a history of prior strokes, who was transferred from [facility] for further evaluation of left-sided weakness, concern [...] standard MRI scanner, but CT scan of [facility] head was negative for any acute intracranial [...] patient was reported to be stable by [facility] staff, no loss in fluency of her [...] had ongoing residual from this. PATIENT NAME: GIOVANNY CALDERÓN 3600 Currently, the patient is sh [...] drift. Coordination testing is inta ct to ivvywj-nw-[id number] testing with eyes open and eyes closed. [...] lubric ant to prevent corneal PATIENT NAME: GIOVANNY CALDERÓN [address] abrasion. 5. Would recommend a course of [...] patient to undergo an MRI outside of [place], open air, before disch arge. This patient's prognosis remains guarded. Furthe r recommendations can be made as this case evolves. Please note that teleneuro logy service will be on over the next several days. Dr. Keller, however, can be reached at . Dictated By: Heather Keller MD WT: PN:BSLOANE/ANNAMARIA/MARY KAY Conf#: [id number]/DID#: [id number] Authenticated and Edited by Heather Keller MD On 11/08/20 3:02:03 PM Electronically Signed by Heather Keller on 10/12 03/03 at 1506 PATIENT NAME: GIOVANNY CALDERÓN 3600 2020-10-31 11:03:00-00:00 [facility]) Hospitalist Progress Note REPORT#:[id number] REPORT STATUS: Signed DATE:10/31/20 TIME: 1103 PATIENT: GIOVANNY CALDERÓN UNIT #: [id number] ROOM/BED: [facility]-W : 75 AGE: 45 SEX: F ATTEND: [...] F low FiO2 Mean Ox Delivery Rate 10/31 0729 97.3 66 18 103/65 78.0 96 Room air 10/31 0418 98.1 64 20 138/41 73.2 97 Room air 10/31 2351 97.7 81 20 113/69 83.5 97 Room air 10/30 2228 97 Nasal 2 cannula 10/30 2028 98.2 74 20 114/71 85.3 97 Room air 10/30 1640 98.6 79 18 130/75 93.4 94 Nasal cannula 10/30 1253 98.1 71 20 116/73 87.3 100 Room air 24 hour I O ending at 0700: 10/31 0700 10/30 1900 Intake Total 300 Output Total 2200 Balance -1900 Intake, Oral 300 Output, Urine 2200 PATIENT WEIGHT: Weight (lb): 370 Weight (oz): 0 Weight (kg): 167.242461 Medications: Active Meds + DC'd Last 24 [...] sounds, soft Extremities: moves all, no edema Neuro/WATER CONSERVATION SPECIALIST: abnormal speech, focal weakness, aler t, oriented X 3 Skin: dry, intact, no rash Results Findings/Data: Laboratory Tests 10/316 Chemistry POC Glucose (70 - 119 MG/DL) 119 143 H Radiology data: Recent Impressions: CAT SCAN - CT ANGIO HEAD 10/30 1415 Report Impression - Status: SIGNED Entered: 10/30/2020 1443 Impression: 1. Unremarkable CT angiogram of the carotid mo laine. CT angiography of the [place] with Cont rast Indication: Stenosis, aneurysm. Comparison: 10/27/2020. Technique: Axial images were obtained post IV co ntrast with Sagittal and coronal MIPS. This exam was performed [facility] dose-optimization program, which includes automa [...] are patent. The vertebrobasilar system, including the fact checker ior cerebral arteries, are normal in appearance. [...] carotid mo laine. CT angiography of the [place] with Cont rast Indication: Stenosis, aneurysm. Comparison: 10/27/2020. Technique: Axial images were obtained post IV co ntrast with Sagittal and coronal MIPS. This exam was performed according to our depart ental dose-optimization program, which includes automa octaviano [...] are patent. The vertebrobasilar system, including the fact checker ior cerebral arteries, are normal in appearance. [...] Morbid obesity -Advised on weight loss - Front End Application Developer consult QUALITY: DVT AND GI PROPHYLAXIS order ed; PPI and SCD. CI for Pharmacological prophylaxis for now HOME MEDS RECONCILED and ordered. Advance Care Planning and Code Status Discussed: Full Code Disposition: PT OT recommending postacute rehab Neurology final recs at 1106 RPT #:[id number] END OF REPORT 2020-10-31 08:09:00-00:00 [id number] [place] [address] PATIENT NAME: GIOVANNY CALDERÓN ADMIT DATE: ACCOUNT NO: [id number] ROOM NO: [facility] AGE: 45 REPORT TYPE: eCAROTID ULTRASOUND SEX: F ADMITTING PHYSICIAN:Tyesha Dacosta MD ATTENDING PHYSICIAN:Tyesha Dacosta MD Name: YADIEL CALDERÓNICA Study Date: 10/31/2020 08: 09 AMPatient Location: [address] URN: [id number] Gender: Female : 1975 Gender: Female Age: [...] right vertebral artery. Left Extracranial PATIENT NAME: GIOVANNY CALDERÓN 3600 There is intimal thickening but no signi ficant atherosclerotic plaque noted in the left common carotid artery. <50% left editing internship al carotid artery stenosis. There is intimal [...] By: Sona Camilo at 1654 PATIENT NAME: GIOVANNY CALDERÓN 3600 2020-10-30 10:35:00-00:00 [facility] Hospitalist Progress Note REPORT#:[id number] REPORT STATUS: Signed DATE:10/30/20 TIME: 1035 PATIENT: GIOVANNY CALDERÓN UNIT #: [id number] ROOM/BED: B.160-W : 75 AGE: 45 SEX: F ATTEND: Aj Dacosta MD ADM AUTHOR: Tyesha Dacosta * ALL edits or amendments must be made on the [employer]/computer document * Subjective Free Text Subj Notes [...] 2000 68 18 123/75 93 96 10/29 1945 Nasal 2 cannula 10/29 1945 98.7 Nasal 2 cannula 10/29 1900 70 16 120/71 91 100 10/29 1800 60 15 119/73 90 98 24 hour I O ending at 0700: 10/30 0700 10/29 1900 Intake Total 250 600 Output Total 400 1100 Balance -150 -500 Intake, Oral 250 600 Number Voids 1 Output, Urine 400 1100 Patient 167.829 kg Weight PATIENT WEIGHT: Weight (lb): 370 Weight (oz): 0 Weight (kg): 167.112108 Medications: Active Meds + DC'd Last 24 [...] sounds, soft Extremities: moves all, no edema Neuro/WATER CONSERVATION SPECIALIST: abnormal speech, focal weakness, aler t, oriented X 3 Skin: dry, intact, no rash Results Findings/Data: Laboratory Tests 10/30 Chemistry Sodium (133 - 144 mmol/L) 140.0 [...] SMALL 50-200 MG H Laboratory Tests 10/30 520 Hematology WBC (4.1 - 12.1 K/mm3) 7.4 [...] % (Auto) (14.1 - 45.4 %) 22.1 Linn % (Auto) (2.5 - 11.7 %) 6.1 Eos % (Auto) (0.0 - 6.2 %) 1.6 Baso % (Auto) (0.0 - 2.1 %) 0.1 Gran # (2.0 - 13.7 k/mm3) 5.13 Lymph # (Auto) (0.6 - 3.8 K/mm3) 1.63 Linn # (Auto) (0.11 - 0.59 K/mm3) 0.45 Eos # (Auto) (0.0 - 0.4 K/mm3) 0.12 Baso # (Auto) (0.0 - 0.1 K/mm3) 0.01 Immature Gran % (0.0 - 2.0 %) 0.7 Nucleated RBC % (0.0 - 1.0 /100WBC%) 0.0 Nucleated RBCs # (0.0 - 0.05 K/mm3) 0.00 Radiology data: Recent Impressions: CAT SCAN - CT ANGIO HEAD 10/30 1414 Report Impression - Status: SIGNED Entered: 10/30/2020 1443 Impression: 1. Unremarkable CT angiogram of the carotid mo laine. CT angiography of the [place] with Cont rast Indication: Stenosis, aneurysm. Comparison: 10/27/2020. Technique: Axial images were obtained post IV co ntrast with Sagittal and coronal MIPS. This exam was performed according to our depart ental dose-optimization program, which includes automa octaviano [...] are patent. The vertebrobasilar system, including the fact checker ior cerebral arteries, are normal in appearance. The right posterior ce rebral arteries primarily supplied by the right carotid system. No evidence of aneurysm, stenosis, or occlusion. No evidence of vascular malformation. Impression: 1. Normal exam. Impression By: Bud Sherman MD CAT SCAN - CT ANGIO NECK 10/30 1414 Report Impression - Status: SIGNED Entered: 10/30/2020 1443 Impression: 1. Unremarkable CT angiogram of the carotid mo laine. CT angiography of the [place] with Cont rast Indication: Stenosis, aneurysm. Comparison: 10/27/2020. Technique: Axial images were obtained post IV co ntrast with Sagittal and coronal MIPS. This exam was [facility], which includes automa [...] are patent. The vertebrobasilar system, including the fact checker ior cerebral arteries, are normal in appearance. The right posterior ce rebral arteries primarily supplied by the right carotid system. No evidence of aneurysm, stenosis, or occlusion. No evidence of vascular malformation. Impression: 1. Normal exam. Impression By: [email or web address] - Omi Sherman MD Results: labs reviewed, [...] Morbid obesity -Advised on weight loss - Front End Application Developer consult QUALITY: DVT AND GI PROPHYLAXIS order ed; PPI and SCD. CI for Pharmacological prophylaxis for now HOME MEDS RECONCILED and ordered. Advance Care Planning and Code Status Discussed: Full Code at 1739 RPT #:[id number] END OF REPORT 2020-10-30 10:35:00-00:00 [facility] ([facility]) Clinical Note REPORT#:[id number] REPORT STATUS: Signed DATE:10/30/20 TIME: 1035 PATIENT: GIOVANNY CALDERÓN UNIT #: [id number] [facility] AGE: 45 SEX: F ATTEND: Brody Dacosta MD ADM AUTHOR: Tyesha Dacosta * ALL edits or amendments must be made on the [employer] document * Clinical Note Note: Advance Care Plan Had a full discussion with t jonah patient about advanced directives. We had a long discussion regarding the patient's need for CPR and defibrillation in the case of cardiac arrest and mechan ical ventilation and intubation in the case of respiratory arrest. Patient states that they understood the advance care planning terminology and descriptio n and would like to be full code. at 1739 RPT #:[id number] END OF REPORT 2020-10-29 11:25:00-00:00 [facility] Progress Note REPORT#:[id number] REPORT STATUS: Signed DATE:10/29/20 TIME: 1125 PATIENT: GIOVANNY CALDERÓN UNIT #: [id number] ROOM/BED: CCU34-D : 75 AGE: 45 SEX: F ATTEND: Brody Dacosta MD ADM AUTHOR: Tyesha Dacosta * ALL edits or amendments must be made on the [employer] document * Subjective Free Text Subj Notes Free Text Subj Notes: No acute complaints. Still h as significant left-sided facial droop however able to converse and maintain diet Objective General VS/I O: Vital Signs: Date Time Temp Pulse Resp B/P B/P Pulse O2 O2 F low FiO2 Mean Ox Delivery Rate 05/19 1630 64 18 132/74 95 97 05/19 1611 98.2 70 05/19 1600 68 20 109/70 86 99 05/19 1530 67 21 111/63 80 95 05/19 1500 62 16 113/74 88 99 05/19 1430 64 18 122/70 90 99 05/19 1400 68 18 133/87 106 100 05/19 1330 66 19 125/81 98 99 05/19 1300 71 103/57 77 98 05/19 1230 62 14 117/59 75 99 05/19 1200 98.4 20 05/19 1200 71 12 110/64 81 97 05/19 1130 60 13 120/69 89 100 05/19 1100 58 13 129/69 93 100 05/19 1034 65 20 127/73 94 98 05/19 1030 68 17 98 05/19 1005 65 18 131/76 96 99 05/19 1004 62 17 129/70 94 97 05/19 1003 98 Room air 05/19 1000 87 19 98 05/19 0930 66 17 115/70 87 98 05/19 0900 67 14 119/70 89 96 05/19 [...] 05/18 2230 67 15 116/67 87 99 10/280 64 14 119/60 84 99 10/280 61 15 125/79 97 100 10/28 2100 66 17 119/65 86 100 10/28 2029 66 16 107/56 75 99 10/29 1999 67 15 98/53 69 98 10/289 99 Nasal 2 cannula 10/29 1939 97.8 98 Nasal 2 cannula 10/28 1930 [...] (lb): 370 Weight (oz): 0 Weight (kg): 167.638603 Medications: Active Meds + DC'd Last 24 [...] sounds, soft Extremities: moves all, no edema Neuro/WATER CONSERVATION SPECIALIST: abnormal speech, focal weakness, aler t, oriented [...] % (Auto) (14.1 - 45.4 %) 23.5 Linn % (Auto) (2.5 - 11.7 %) 5.0 Eos % (Auto) (0.0 - 6.2 %) 2.3 Baso % (Auto) (0.0 - 2.1 %) 0.2 Gran # (2.0 - 13.7 k/mm3) 4.22 Lymph # (Auto) (0.6 - 3.8 K/mm3) 1.45 Linn # (Auto) (0.11 - 0.59 K/mm3) 0.31 [...] SCAN - CT HEAD/BRAIN W/O CONT 10/28 4054 Report Impression - Status: SIGNED Entered: 10/29/2020 0940 IMPRESSION: No acute intracranial process seen. Impression [...] Morbid obesity -Advised on weight loss - Front End Application Developer consult QUALITY: DVT AND GI PROPHYLAXIS order [...] the family or caregiver. at 1834 RPT #:[id number] END OF REPORT 2020-10-29 11:08:00-00:00 [facility] DT PROGRESS NOTE REPORT#:[id number] REPORT STATUS: Signed DATE:10/29/20 TIME: 110 PATIENT: GIOVANNY CALDERÓN UNIT #: [id number] ROOM/BED: [address] : 75 AGE: 45 SEX: F ATTEND: Brody Dacosta MD ADM AUTHOR: Lisette Savage MD * ALL edits or amendments must be made on the [employer]/computer document * Progress Note Progress Note Lying [...] 10/28 2199 CKD 10/29 PO 11/27 2200 100 Carbamazepine 400 MG BID 10/28 2199 AC 10/29 PO 11/27 2200 0931 Simvastatin 10 MG BEDTIME 10/28 2100 AC 10/28 PO 11/27 2100 222 Pantoprazole 40 MG BID 05/18 1115 AC 10/29 IV 11/27 1116 0942 [...] Q4H PRN PRN 10/28 0500 AC 10/28 IV 11/27 0501 0825 Sodium Chloride 1,000 ML .[id number] 10/28 0500 DC 10/28 IV 10/28 1819 0544 Sodium Chloride 1,000 [...] Savage MD on 10/29 at 1113 RPT #:[id number] END OF REPORT 2020-10-28 11:16:00-00:00 [facility] Hospitalist Progress Note REPORT#:[id number] REPORT STATUS: Signed DATE:10/28/20 TIME: 1116 PATIENT: GIOVANNY CALDERÓN UNIT #: [id number] ROOM/BED: [place] [address]- : 75 AGE: 45 SEX: F ATTEND: Varun Alfonso MD ADM AUTHOR: Tyesha Dacosta * ALL edits or amendments must be made on the el [employer]/computer document * Subjective Free Text Subj Notes Free Text Subj Notes: Patient admitted and seen by feed inspection supervisor this a.m . Chart reviewed. Appropriate orders placed. Objective General VS/I O: Vital Signs: Date Time Temp Pulse Resp B/P B/P Pulse O2 O2 F low FiO2 Mean Ox Delivery Rate 10/28 1949 99 Nasal 2 cannula 10/28 1801 64 17 139/62 89 100 10/28 1700 61 15 124/62 85 97 10/28 1600 Nasal 2 cannula 10/28 1600 98.2 Nasal 2 cannula 10/28 1600 64 14 120/57 82 97 10/28 1500 73 18 111/66 81 98 10/28 1400 79 22 121/63 86 100 10/28 1300 64 16 128/61 88 100 10/28 1200 97.7 Nasal 2 cannula 10/28 1200 64 11 125/59 85 100 10/28 1100 63 12 121/78 92 100 05/18 [...] 66 05/18 0800 97.7 Nasal 2 cannula 10/28 0800 Nasal 2 cannula 18 0800 97.7 Nasal 2 cannula 05/18 0800 [...] 05/18 0517 97.7 98 Nasal 2 cannula /18 0515 63 158/77 110 100 05/18 0501 99 150/72 102 97 05/18 0451 72 166/70 101 98 05/18 0338 98.0 70 17 128/67 87 96 Room air 05/18 0300 98.0 74 17 132/69 90 97 Room air /18 0200 98.0 86 17 107/62 77 96 Room air / 0135 98.2 67 16 102/57 72 94 [...] PRN PRN IV Sodium Chloride 1,000 ML .[id number] IV (DC) Sodium Chloride 1,000 ML .Q10H [...] 1 NORMAL <10 MG Laboratory Tests 10/28 0535 Coagulation PT (9.4 - 12.5 SECONDS) 12.5 INR (0.88 - 1.13 INR Unit) 1.10 PTT ([place]oto) (24 - 37.7 SECONDS) 28.3 Laboratory Tests 10/28 0535 Hematology WBC (4.1 - 12.1 K/mm3) 7.2 [...] % (Auto) (14.1 - 45.4 %) 21.8 Linn % (Auto) (2.5 - 11.7 %) 5.6 Eos % (Auto) (0.0 - 6.2 %) 2.1 Baso % (Auto) (0.0 - 2.1 %) 0.3 Gran # (2.0 - 13.7 k/mm3) 4.97 Lymph # (Auto) (0.6 - 3.8 K/mm3) 1.56 Linn # (Auto) (0.11 - 0.59 K/mm3) 0.40 [...] - 8.0 pH UNITS) 6.5 Ur Specific [place] (1.001 - 1.035 SG) 1.040 H Urine [...] Morbid obesity -Advised on weight loss - Front End Application Developer consult QUALITY: DVT AND GI PROPHYLAXIS order ed; PPI and SCD. CI for Pharmacological prophylaxis for now HOME MEDS RECONCILED and ordered. Advance Care Planning and Code Status Discussed: Full Code at 2126 RPT #:[id number] END OF REPORT 2020-10-28 11:10:00-00:00 [facility] ([facility]) Critical Care Consult Note REPORT#:[id number] REPORT STATUS: Signed DATE:10/28/20 TIME: 1110 PATIENT: GIOVANNY CALDERÓN UNIT #: [id number] ROOM/BED: [address] : 75 AGE: 45 SEX: F ATTEND: Varun Alfonso MD ADM AUTHOR: Lisette Savage MD * ALL edits or amendments must be made on the el [employer]/computer document * History of Present Illness HPI Requesting clinician: Critical care service Free Text HPI Notes Free Text HPI Notes: 45-year-old female with history of hypertension, recent left Naranjo's palsy and stroke transferred from [facility] because of acute onset left-sided weakness and dysarthria. Onset is about 8:45 PM and she r eceived TPA at 2220 at [facility] and transferred here. Blood pressure wa s [...] Pulse 62 10/28 1030 Pulse Ox 100 10/28 1030 B/P 128/83 10/28 1030 B/P Mean [...] no cyanosis, no edema Musculoskeletal: normal inspection Neuro/WATER CONSERVATION SPECIALIST: alert, oriented X 3, left hemiplegia with [...] Savage MD on 10/28 at 1120 RPT #:[id number] END OF REPORT 2020-10-28 10:55:00-00:00 [id number] [address] PATIENT NAME: GIOVANNY CALDERÓN ADMIT DATE: ACCOUNT NO: [id number] [facility] 45 REPORT TYPE: eECHOCARDIOGRAM REPORT SEX: F ADMITTING PHYSICIAN:Omayra Alfonso MD ATTENDING PHYSICIAN:Omayra Alfonso MD Name: GIOVANNY CALDERÓN Study Date: 10/28/2020 10: 55 [address] URN: [id number] BP: 164/76 mmHg : 64 in Gender: [...] mmHg TR max P.6 mmHg PATIENT NAME: GIOVANNY CALDERÓN [id number] RVSP(TR): 20.6 mmHg RAP systole: 5.0 mmHg [...] root is normal size. Pericardium/Pleural PATIENT NAME: GIOVANNY CALDERÓN 3600 There is no pericardial effusion. Electronically signed by: Jeffrey Andersen MD 10/28 03:55 PM Ordering Physician: Omayra Alfonso Referring Physician: Zander Camilo Performed By: Evelyn Chaudhry Electronically Signed by Jeffrey Andersen MD on at 1555 PATIENT NAME: GIOVANNY CALDERÓN 3600 2020-10-28 04:33:00-00:00 [facility] ([facility] Hospitalist History Physical REPORT#:[id number] REPORT STATUS: Signed DATE:10/28/20 TIME: 0433 PATIENT: GIOVANNY CALDERÓN UNIT #: [id number] ROOM/BED: [address] : 75 AGE: 45 SEX: F ATTEND: Brody Dacosta MD ADM AUTHOR: Omayra Alfonso MD * ALL edits or amendments must be made on the el [employer]/computer document * History of Present Illness HPI Chief complaint: CVA PCP: PCP: No Primary or Family Physician HPI: This is a 45-year-old female with history of hyp ertension, transferred from [facility] because of acute onset left-sided w eakness and dysarthria. Onset is about 8:45 PM and she received TPA at 2220 at [facility] and transferred here. Blood pressure was jaimie [...] 10/28 0338 O2 Delivery Room air 10/28 0338 Temp 98.0 10/28 0338 Pulse 70 10/28 [...] Morbid obesity -Advised on weight loss - Front End Application Developer consult QUALITY: DVT AND GI PROPHYLAXIS order [...] the new Attending. I AM SIGNING OFF. Nitish Sheriff'S Sergeant Electronically Signed by Omayra Alfonso MD on 0 10/29/20 at 0920 RPT #:[id number] END OF REPORT 2020-10-28 01:52:00-00:00 [facility] ([facility]) EMERGENCY PROVIDER REPORT REPORT#:[id number] REPORT STATUS: Signed DATE:10/28/20 TIME: 151 PATIENT: GIOVANNY CALDERÓN UNIT #: [id number] ROOM/BED: B.160-W AGE: 45 SEX: F PCP PHYS: No Primary or Family Ph ysician SERVICE AUTHOR: Zander Camilo MD * ALL edits or amendments must be made on the el [employer]/computer document * HPI-Stroke/CVA Free Text HPI Notes Free Text HPI Notes History is limited by aphasia. Is a 44-year-old female transferred from [facility] for onset of left-sided weakness. She has [...] MG @ 2222 TPA INFUSION 81MG @ 2223 Risk-Stroke/CVA Risk Stratification )( Initial NIH Stroke [...] (minutes): 31 Services Performed Patient management by Anjel zhao spent at bedside, Reviewing test results, Reviewing imaging, Discussing wendi ent care, Documentation in record Separately billable procedures excluded from anjel sam. Electronically Signed by Zander Camilo MD on at 0729 RPT #:[id number] END OF REPORT 2020-10-27 22:21:00-00:00 [facility] ([facility]) EMERGENCY PROVIDER REPORT REPORT#:[id number] REPORT STATUS: Signed DATE:10/27/20 TIME:2220 PATIENT: GIOVANNY CALDERÓN UNIT #: [id number] ROOM/BED: : [birth year] AGE: 44 SEX: F PCP PHYS: No Primar y or Family Physician SERVICE AUTHOR: Lisa Amaya MD * ALL edits or amendments must be made on the el [employer]/computer document * HPI-Stroke/CVA Free Text HPI Notes Free Text HPI Notes 44-year-old female past medical history of diabetes, hyperlipidemia, hypertension, CVA (2018), and Naranjo's palsy prese nts via EMS for evaluation of stroke. Per patient's , patient and famil y were driving home from restaurant when she suddenly became nauseous and diaphoretic shortly after patient developed slurred speech, worsening left facial droop, left upper and lower extremity weakness. EMS was called patient was brought directly to [facility]. General Initial Greet Date/Time 10/27/202203 )( Stroke Notification Alert Advance Notification by EMS? Yes Date Alert Received 10/27/20 )( Time Alert Received 2153 Presentation )( Last Known Well )( Time 2044 )( Progression since Onset Unchanged Risk-Stroke/CVA Risk Stratification )( Initial NIH Stroke Scale )( Initial NIH Stroke Scale Response Value NIHSS Applicable? Yes 0 Level of Consciousness Alert and responsive (0 ) 0 Ask Month Age Both questions right [...] (0.8 - 1.2 INR Unit) 1.00 PTT ([place]oto) (26 - 35 SECONDS) 32.7 PT Patient/Control Mix (9.3 - 12.9 SECONDS) 11. 2 Hematology WBC (3.5 - 11.0 K/mm3) 7.9 [...] decision-making. Procedures Stroke Thrombolytic Therapy Start Time 2221 Time Spent (minutes) 35 Procedure Performed by [...] with ER diagnosis work up and management. [facility] and unable to accept ICU level patient. Spoke with Dr. Camlio at [facility] who agrees w [facility] ER diagnosis work up management and plan to transfer to [facility]. Patients spouse agreeable to plan ED Course [...] AC Sodium Chloride 250 ML IV 11/26 2228 Diagnostic Agents Sig/Iliana Start time Last Medication Dose Route Stop Time Status Admin Iopamidol 0 .STK-MED ONE 10/27 2250 DC .ROUTE Electrolytic, Caloric, And Jose R Sig/Iliana Start time Last Medication Dose Route Stop Time Status Admin Sodium Chloride 50 ML ONCE ONE 10/27 2317 DC IV 10/27 Sodium Chloride 1,000 ML X1ED STA 10/27 2217 DC IV 10/27 2218 Dose Instructions: (1)Alteplase, Recombinant: SEE ADMIN CRIT Consultation Consultation Referral/Consult Name Theresa Dye MD Director Staffing Called Neurology Requested Call Time 2231 Requested Call Date 10/27/20 Call Returned Call returned Call Returned Time 2231 Call Returned Date 10/27/20 Director Staffing Agrees with eval, Agrees with plan Differential [...] (minutes): 35 Services Performed Patient management by Anjel zhao spent at bedside, Reviewing test results, Reviewing imaging, Discussing wendi ent care, Documentation in record, Time with fam/surrogate Separately billable procedures excluded from anjel sam. Patient was critically ill due to: acute [...] by Lisa Amaya MD on at 2349 RPT #: [id number] END OF REPORT 2020-10-27 22:20:00-00:00 [id number] [facility] [address] [place] [address] PATIENT NAME: GIOVANNY CALDERÓN ADMIT DATE: 1 ACCOUNT NO: [id number] ROOM NO: AGE: 45 REPORT TYPE: eELECTROCARDIOGRAM SEX: F ADMITTING PHYSICIAN: ATTENDING PHYSICIAN: Order: [id number] Test Reason : (Not Selected) Test Date/Time [...] branch block Confirmed by MD Dalila, Bill ([id number]) on 5:19:43 PM Referred By: Self Referred Confirmed by:Bill carpio MD at 1719 PATIENT NAME: GIOVANNY CALDERÓN 3740 2020-05-02 14:34:00-00:00 [id number] [facility] [address] [place] [address] [place] [address] PATIENT NAME: GIOVANNY CALDERÓN ADMIT DATE: 07/02/19 ACCOUNT NO: [id number] ROOM NO: AGE: 44 REPORT TYPE: ENDOSCOPY REPORT SEX: F ADMITTING PHYSICIAN: ATTENDING PHYSICIAN:Giuliano Abdullahi MD [facility] Gastroenterology Patient Name: Stephane Nina Attending MD: Giuliano Abdullahi MD Procedure Date: 05/02/2020 2:34 PM 91 Date of : Admit Type: Outpatient Age: 44 Room: Room 2 Gender: Female Note Status: Finalized Procedure: Upper GI endoscopy Pre Procedure Diagnosis: Heartburn Assistants: Giuliano Abdullahi MD, Anushka prieto (Nurse), Francois Appiah RN (Nurse), Ernestine Hunter, System Auditor, Melinda Ramirez CRNA Anesthesia: General Anesthesia Procedure: [...] the nurse and the anesthesiologist in the [facility] room. Mental Status Examination: alert [...] respiratory rate, oxygen saturatio ns, PATIENT NAME: GIOVANNY CALDERÓN ACCOUNT #: BP [id number] blood pressure, adequacy of pulmonary ventilat ion, and response to care were monitored throughout [...] PM Procedure Date: 05/02/2020 2:34:38 PM Provation [id number] ProVation FT PDF PATIENT NAME: GIOVANNY CALDERÓN ACCOUNT #: BP [id number] at 1508 PATIENT NAME: YADIEL CALDERÓNJAMAR ARRIAZA ACCOUNT #: BP [id number]
[2023-02-10] MEDS ORDERED: ASPIRIN 81 MG CHEWABLE TABLET ONE (16:52)
[2023-02-10] MEDS ORDERED: FOLIC ACID 5 MG/ML VIAL ONE (16:53)
[2023-02-10 17:08] LABS: Absolute Lymphocytes (CBC) 1.7 K/uL (0.7-4.9); Hematocrit 37.2 % (36.0-45.0); Lymphocytes % 31.4 % (15.3-44.8); MCV 90.2 fL (80-100); MPV 9.3 fL (7.6-11.3); Platelets 182 thou/uL (152-406); RBC Red Blood Cell Count 4.12 M/uL (3.86-4.86)
[2023-02-10 17:12] LABS: Protime INR 1.03
[2023-02-10 17:24] LABS: Troponin High Sensitivity 5.1 pg/mL (<58.9)
--- NOTE | 2023-02-10 17:30 | RAD REPORT ---
EXAM DESCRIPTION: Sumaya Single View02/10/2023 4:55 pm CLINICAL HISTORY: left side weakness COMPARISON: 07/19/2022 TECHNIQUE: Portable AP view of the chest. FINDINGS: Central interstitial prominence, may relate to a degree of under aeration, or mild central congestion/ edema. No pneumothorax or effusion. The cardiomediastinal contours are unremarkable. IMPRESSION: Central interstitial prominence, may relate to a degree of under aeration, or mild centr al congestion/ edema.
[2023-02-10 18:04] VITALS: TEMP 97.6; O2SAT 100
[2023-02-10 18:05] VITALS: BP 159/111
--- NOTE | 2023-02-11 15:23 | EKG ---
Test Date: 2023-02-10 Test Time: 16:58:13 Jewelry Appraiser: Neha SI MEASUREMENT RESULTS: Intervals: Rate: 55 KS: 124 QRSD: 86 QT: 426 QTc: 407 Russell: P: 0 KS: 124 QRS: -10 T: 17 INTERPRETIVE STATEMENTS: Sinus bradycardia Septal infarct, age undetermined Abnormal ECG Compared to ECG 07/19/2022 01:00:46 No significant changes Electronically Signed On 02-11-23 15:20:57 CDT by Duane Gramajo
== END 2023-02-10 17:22 | disposition short-term general hospital (02) ==
LOC: ER 16:11
DX: I63.9 Cerebral infarction, unspecified (principal); R47.81 Slurred speech; I10 Essential (primary) hypertension; R29.706 NIHSS score 6; R53.1 Weakness; E11.9 Type 2 diabetes mellitus without complications; Z79.01 Long term (current) use of anticoagulants; Z88.0 Allergy status to penicillin; Z88.8 Allergy status to other drugs, medicaments and biological substances; Z86.73 Personal history of transient ischemic attack (TIA), and cerebral infarction without residual deficits
CPT/HCPCS: 93005; 85025; 80048; 36415; 85610; 82565; 85730; 84484; 70496; 70498; 70450; 71045; 96374; 99285; Q9967